=== PATIENT | female | born 1950 | race Caucasian/White ===

== ENCOUNTER 2016-05-16 12:41 | Outpatient (RCR) | payer MEDICARE, MEDICAID ==
[2016-04-20 13:20] VITALS: BP 124/57
[2016-05-04 13:23] LABS: INR 2.7 (0.8-1.4); PROTHROMBIN TIME PATIENT 28.7 SEC (12.2-14.7)
[2016-05-04 13:27] VITALS: BP 148/72
[~2016-05-16] VITALS: Ht 167.6 cm; Wt 61.2 kg
[~2016-05-16 12:41] MED LIST: AC325T PO; ATOR40TA PO; ATOR40TA70 PO; BMT1T PO; CARB10DR OU; CARI350T27 PO; CIPR-17 PO; CLIN300C3 PO; CLR7.5T PO; CRS350T PO; CYAN100053 IJ; CYCL1DRO OU; FLC1T PO; FLUO20CA25 PO; FNT75TD TD; FOLI1TAB24 PO; FURO20TA4 PO; GABA-490 PO; GBPN400C PO; HEParin (CENTRAL IV FLUSH) 500 UNIT/5 ML SYR ONE; KETO5DRO2 OU; LAMO100T PO; LAMO100T69 PO; LCT30U PO; LORA10TA7 PO; LRT10T PO; METO-354 PO; METO10TA3 PO; METO25TA2 PO; MINE3.5O OU; MINE3.5O2 OU; MTP50T PO; MULT-68 PO; NF-TYLARTH PO; NITR1PAT26 TD; NITR1PAT64 TD; NYST15CR3 TP; NYST1POW15 TOP; OMEP20TA2 PO; OXYC-12 PO; PHEN-633 PO; PHEN30TA37 PO; PHEN50TA PO; PHEN50TA4 PO; PHN100C PO; POLY119P PO; POLY17PO23 GT; POTA8TAB PO; POTA8TAB6 PO; SIME125C PO; TOPI100T2 PO; TPR100T PO; WARF1TAB6 PO; WARF2TAB6 PO; WRF1T PO; WRF2T PO; WRF5T PO; ZLP5T PO
[2016-05-16 12:45] VITALS: BP 148/72
== END 2016-07-19 | disposition home or self-care (01) ==
LOC: SDC 12:41
PROVIDERS: ATTEND Internal Medicine
DX: I87.2 Venous insufficiency (chronic) (peripheral) (principal); Z79.01 Long term (current) use of anticoagulants
CPT/HCPCS: 36415; 36591; 85610; 96523

== ENCOUNTER → 2016-08-23 | Outpatient (CLI) | payer MEDICARE, MEDICAID ==
[~2016-08-23] MED LIST changes: -HEParin (CENTRAL IV FLUSH) 500 UNIT/5 ML SYR ONE
--- NOTE | 2016-08-24 11:07 | Diagnostic Imaging Report ---
Bilateral screening mammogram. The current study was also evaluated with a Computer Aided Detection (CAD) system. INDICATION: Screening. No current complaints stated on the questionnaire. COMPARISON: None. This is a baseline study. FINDINGS: Please note that this is a technically difficult exam as the patient was sitting in a wheelchair while doing all the views. There is a cuff setter projecting over the left breast. There is an infusion port projecting over the right axillary region. No suspicious mass, architectural distortion, or suspicious cluster of calcifications identified. IMPRESSION: Difficult exam due to patient condition with no suspicious mass. ACR BI-RADS Category 2: Benign findings. Result letter will be mailed to the patient. Note: At least 10% of breast cancer is not imaged by mammography. Dictated by: Dictated on workstation # [id number]
== END ==
LOC: RAD 11:47
PROVIDERS: ATTEND Internal Medicine
DX: Z12.31 Encounter for screening mammogram for malignant neoplasm of breast (principal)
CPT/HCPCS: 77067

== ENCOUNTER → 2016-09-14 | Outpatient (CLI) | payer MEDICARE, MEDICAID ==
[2016-09-14 11:22] LABS: INR 1.4 (0.8-1.4); PROTHROMBIN TIME PATIENT 16.7 SEC (12.2-14.7)
== END ==
LOC: HH 10:57
PROVIDERS: ATTEND Internal Medicine
DX: I25.810 Atherosclerosis of coronary artery bypass graft(s) without angina pectoris (principal)
CPT/HCPCS: 85610

== ENCOUNTER → 2016-12-03 | Outpatient (CLI) | payer MEDICARE, MEDICAID ==
--- NOTE | 2016-12-03 11:28 | Diagnostic Imaging Report ---
Indication: Followup chronic kidney disease, worsening renal function test. Comparison: 11/17/2015. Discussion: Sonographic evaluation of the bilateral kidneys was performed. There is cortical atrophy again noted bilaterally. The kidneys are echogenic, consistent with chronic medical renal disease. The left kidney is atrophied measuring 7.2 cm. The right kidney measures 9.2 cm. No hydronephrosis or shadowing stone. No solid renal mass identified. Impression: 1. Changes of chronic kidney disease as discussed. No acute abnormality identified. Dictated by: Dictated on workstation # [id number]
== END ==
LOC: RAD 10:17
PROVIDERS: ATTEND Urology
DX: N28.9 Disorder of kidney and ureter, unspecified (principal)
CPT/HCPCS: 76770

== ENCOUNTER 2017-02-08 05:55 | Outpatient (CLI) | payer MEDICARE, MEDICAID ==
[~2017-02-08] VITALS: Ht 167.6 cm; Wt 61.2 kg
--- NOTE | 2017-02-08 07:15 | Pre-Op Note & Conscious Sedat ---
Pre-Operative Progress Note H&P Reviewed The H&P was reviewed, patient examined and no changes noted. Date H&P Reviewed: Feb 08, 2017 Time H&P Reviewed: 07:15 Conscious Sedation Pre-Proced ASA Class: 1 Airway Mallampati Classification: ([place] appropriate class) I. II. III, IV Lungs Heart ASA score ASA 1: a normal healthy patient ASA 2: a patient with a mild systemic disease (mid diabetes, controlled hypertension, obesity ASA 3: a patient with a severe systemic disease that limits activity (angina , COPD, prior Myocardial infarction) ASA 4: a patient with an incapacitating disease that is a constant threat to life (CHF, renal failure) ASA 5: a moribund patient not expected to survive 24 hrs. (ruptured aneurysm) ASA 6: a declared brain patient whose organs are being harvested. For emergent operations, add the letter E after the classification Grade 2 Sedation Plan: Analgesia, Amnesia, Plan communicated to team members, Discussed options with patient/fam, Discussed risks with patient/fam Note The patient is an appropriate candidate to undergo the planned procedure, sedation, and anesthesia. The patient immediately re-assessed prior to indication. ALLISON BELLA MD Feb 08, 2017 07:15
[2017-02-13] MEDS ORDERED: MELA3TAB PO (13:33)
[2017-02-13] MEDS ORDERED: CITA10TA7 PO (13:33)
[2017-02-13] MEDS ORDERED: WARF1TAB6 PO (13:33)
[2017-02-13] MEDS ORDERED: CNC1KV IJ (13:33)
[2017-02-13] MEDS ORDERED: PROM6.25 PO (13:33)
[2017-02-13] MEDS ORDERED: PHEN125O2 PO (13:33)
[2017-02-13] MEDS ORDERED: BUTA1CAP41 PO (13:33)
[2017-02-13] MEDS ORDERED: HC A30CR5 RC (13:33)
[2017-02-13] MEDS ORDERED: CLOR3.755 PO (13:33)
[2017-02-13] MEDS ORDERED: CHOL500050 PO (13:33)
[2017-02-13] MEDS ORDERED: SODI650T PO (13:33)
[2017-02-13] MEDS ORDERED: IBUP-1779 PO (13:33)
[2017-02-13] MEDS ORDERED: ONDN4T PO (13:33)
[2017-02-13] MEDS ORDERED: FEXO-14 PO (13:33)
[2017-02-13] MEDS ORDERED: ATOR40TA PO (13:33)
== END 2017-02-08 12:30 ==
LOC: PREOP 05:55
PROVIDERS: ATTEND Internal Medicine
DX: Z01.818 Encounter for other preprocedural examination (principal); K62.5 Hemorrhage of anus and rectum; D64.9 Anemia, unspecified; K43.9 Ventral hernia without obstruction or gangrene

== ENCOUNTER 2017-02-15 07:26 | Day surgery (SDC) | payer MEDICARE, MEDICAID ==
--- NOTE | 2017-02-08 07:48 | HISTORY AND PHYSICAL ---
DATE OF ADMISSION: 02/15/2017 DICTATING PHYSICIAN: Dr. Guadarrama Ms. Paniagua is a 66-year-old white female referred by Dr. Elias for diagnostic colonoscopy. She has a history of anemia, and recent intermittent bright red blood per rectum. She has a large ventral hernia and in review of her electronic medical record she underwent panendoscopy for a similar [address] Vela. He was only able to get to her descending colon secondary to a large ventral hernia, diverticular disease was noted in the sigmoid colon with no active bleeding being noted. She underwent an EGD at that time as well but did not reveal any potential bleeding sites. She denies any abdominal pain, dysphagia or heartburn. There has been no reported bowel habit change. She does have a history of constipation and is on chronic narcotic therapy. PAST MEDICAL HISTORY: Significant for: 1. 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 INR has been reportedly therapeutic. 2. She has a history of hypertension. 3. History of generalized seizure disorder that has been on good under good control on current antiseizure medication. 4. She has history of chronic kidney disease. 5. Neuropathic lower extremity pain. 6. Chronic tremor. 7. She had an echocardiogram in 2014, revealed no significant abnormalities. Ejection fraction was 60% and pulmonary artery pressure was estimated at 30 mmHg. No significant valvular abnormalities were noted. SOCIAL HISTORY: She has been a resident of a local penitentiary for some time due to her CVA and debility. PAST SURGICAL HISTORY: Noncontributory. FAMILY HISTORY: Pertinent for father diagnosed with colon cancer at unknown age, lived to be 90. PHYSICAL EXAMINATION: Reveals a pale, chronically ill-appearing white female, alert, articulate in no acute distress. VITAL SIGNS: Blood pressure 138/70 with a heart rate of 72 and regular. HEENT EXAMINATION: Unremarkable. CHEST: Clear. CV: Revealed a regular rate and rhythm without murmur, S3 or S4. She has a large ventral hernia oriented toward the right, nontender. No mass or organomegaly was noted. Bowel sounds were positive. EXTREMITIES: Reveal no cyanosis, clubbing, or edema. ASSESSMENT: The patient was set up for diagnostic colonoscopy on 02/15 for further evaluation of anemia and rectal bleeding. We will hold Coumadin 48 hours prior and obtain an INR the morning of her test. In review of her electronic medical record and evaluation today, 40 minutes of my personal care time was spent with another 10 to 15 minutes of staff time in setting up colonoscopy and prep instructions. I thank you for the referral. Sincerely, Job ID: [id number] Dictated Date: 01/22/2017 11:59:00 Director Digital Marketing Date: 01/22/2017 18:39:11/zee
[~2017-02-15] VITALS: Ht 167.6 cm; Wt 61.2 kg
[~2017-02-15 07:26] MED LIST changes: +BUTA1CAP41 PO; +CHOL500050 PO; +CITA10TA7 PO; +CLOR3.755 PO; +CNC1KV IJ; +FEXO-14 PO; +HC A30CR5 RC; +IBUP-1779 PO; +MELA3TAB PO; +ONDN4T PO; +PHEN125O2 PO; +PROM6.25 PO; +SODI650T PO
--- OUTSIDE RECORDS SUMMARY | 2017-02-15 07:30 | XMS REPORT ---
Author Author NAHOMY BETH [facility] eClinicalWorks Address Unknown Phone Unavailable Care Team Providers Care Fast Food Cashier Name Role Phone NAHOMY BETH CP Unavailable Allergies No Known Allergies Problems Problem Type Condition Code Onset Dates Condition Status Problem History of CVA with residual deficit I69.30 Active Problem Back pain M54.9 Active Problem B12 deficiency E53.8 Active Problem Unspecified arthropathy, site unspecified 716.90 Active Problem Other convulsions 780.39 Active Problem Seizure disorder G40.909 Active Problem Unspecified osteoporosis 733.00 Active Medications Medication Code System Code Instructions Start Date End Date Status Dosage Fentanyl [facility] [address]-64 75 MCG/HR Transdermal, every 72 hours January 03, 2012 1 patch to skin Results No Known Results Summary Purpose eClinicalWorks Submission
--- OUTSIDE RECORDS SUMMARY | 2017-02-15 07:30 | XMS REPORT ---
Author Author NAHOMY BETH Organization [facility] Address [address] [place] [address] Care Team Providers Care Chemistry Specialist Name Role Phone NAHOMY BETH Unavailable PROBLEMS Type Condition ICD9-CM Code [id number] Code Onset Dates Condition Status SNOMED Code Problem History of CVA with residual deficit I69.30 Active 305114925 Problem Perennial allergic rhinitis, unspecified allergic rhinitis trigger J30.89 Active 328269079 Problem Insomnia, unspecified type G47.00 Active 936142905 Problem Seizure disorder G40.909 Active 387014373 Problem Back pain M54.9 Active 932621333 Problem Personality disorder F60.9 Active 87521259 Problem Factitious disorder imposed on self, recurrent episode F68.10 Active 00145802 Problem Gastroesophageal reflux disease without esophagitis K21.9 Active 111711643 Problem Chronic kidney disease, unspecified stage N18.9 Active 482905383 Problem Anemia, unspecified type D64.9 Active 086308468 Problem History of colon polyps Z86.010 Active 996725155 ALLERGIES Unknown Allergies SOCIAL HISTORY No smoking Hx information available PLAN OF CARE VITAL SIGNS MEDICATIONS Medication Instructions Dosage Frequency Start Date End Date Duration Status Zofran ODT 4 MG Orally every 6 hrs 1 tablet on the tongue and allow to dissolve 6h May, 30 day(s) Active RESULTS No Results PROCEDURES No Known procedures IMMUNIZATIONS No Known Immunizations
--- OUTSIDE RECORDS SUMMARY | 2017-02-15 07:31 | XMS REPORT ---
Author Author NAHOMY BETH Organization [employer]ClinicalWorks Address Unknown Phone Unavailable Care Team Providers Care Billing Spec Name Role Phone NAHOMY BETH CP Unavailable Allergies No Known Allergies Problems Problem Type Condition Code Onset Dates Condition Status Problem B12 deficiency E53.8 Active Problem History of CVA with residual deficit I69.30 Active Problem Insomnia, unspecified type G47.00 Active Problem Back pain M54.9 Active Problem Seizure disorder G40.909 Active Medications Medication Code System Code Instructions Start Date End Date Status Dosage Fentanyl [facility] [address]-59 75 MCG/HR Transdermal, every 72 hours January 03, 2012 May 10, 2016 1 patch to skin Results No Known Results Summary Purpose eClinicalWorks Submission
--- OUTSIDE RECORDS SUMMARY | 2017-02-15 07:31 | XMS REPORT ---
Author Author NAHOMY BETH Organization [employer] Address Unknown Phone Unavailable Care Team Providers Care Molding Manager Name Role Phone NAHOMY BETH CP Unavailable Allergies No Known Allergies Problems Problem Type Condition Code Onset Dates Condition Status Problem History of CVA with residual deficit I69.30 Active Problem Back pain M54.9 Active Problem B12 deficiency E53.8 Active Problem Seizure disorder G40.909 Active Medications Medication Code System Code Instructions Start Date End Date Status Dosage Fentanyl [facility] [address]-03 75 MCG/HR Transdermal, every 72 hours [facility] Dr. Mcnamara to sign for Dr. Beth January 03, 2012 1 patch to skin Results No Known Results Summary Purpose eClinicalWorks Submission
--- OUTSIDE RECORDS SUMMARY | 2017-02-15 07:31 | XMS REPORT ---
Author Author NAHOMY BETH [facility] Address [address] [place] [address] Care Team Providers Care Form Building Supervisor Name Role Phone NAHOMY BETH Unavailable PROBLEMS Type Condition ICD9-CM Code GVR26-RU Code Onset Dates Condition Status SNOMED Code Problem B12 deficiency E53.8 Active 426617292 Problem History of CVA with residual deficit I69.30 Active 218703261 Problem Back pain M54.9 Active 449805852 Problem Seizure disorder G40.909 Active 518443845 ALLERGIES Unknown Allergies SOCIAL HISTORY No smoking Hx information available PLAN OF CARE VITAL SIGNS MEDICATIONS Unknown Medications RESULTS No Results PROCEDURES No Known procedures IMMUNIZATIONS No Known Immunizations
--- OUTSIDE RECORDS SUMMARY | 2017-02-15 07:31 | XMS REPORT ---
Author Author NAHOMY BETH [facility] eClinicalWorks Address Unknown Phone Unavailable Care Team Providers Care Assembler Liquid Center Name Role Phone NAHOMY BETH CP Unavailable Allergies No Known Allergies Problems Problem Type Condition Code Onset Dates Condition Status Problem B12 deficiency E53.8 Active Problem History of CVA with residual deficit I69.30 Active Problem Insomnia, unspecified type G47.00 Active Assessment Back pain M54.9 Active Problem Back pain M54.9 Active Problem Seizure disorder G40.909 Active Medications Medication Code System Code Instructions Start Date End Date Status Dosage Fentanyl [facility] [address]-97 75 MCG/HR Transdermal, every 72 hours January 03, 2012 May 10, 2016 1 patch to skin Results No Known Results Summary Purpose eClinicalWorks Submission
--- OUTSIDE RECORDS SUMMARY | 2017-02-15 07:32 | XMS REPORT ---
Author Author NAHOMY BETH Organization eClinical[employer] Address Unknown Phone Unavailable Care Team Providers Care Bottom Presser Name Role Phone NAHOMY BETH CP Unavailable Allergies No Known Allergies Problems Problem Type Condition Code Onset Dates Condition Status Problem B12 deficiency E53.8 Active Problem History of CVA with residual deficit I69.30 Active Problem Insomnia, unspecified type G47.00 Active Problem Back pain M54.9 Active Problem Seizure disorder G40.909 Active Medications Medication Code System Code Instructions Start Date End Date Status Dosage Melatonin [facility] [address]-89 3 MG Orally Once a day May 21, 2016 1 tablet at bedtime as needed with food Results No Known Results Summary Purpose eClinicalWorks Submission
--- OUTSIDE RECORDS SUMMARY | 2017-02-15 07:32 | XMS REPORT ---
Author Author NAHOMY BETH [facility] Address [address] [place] [address] Care Team Providers Care Commercial Fisher Name Role Phone NAHOMY BETH Unavailable PROBLEMS Type Condition ICD9-CM Code LCV40-PM Code Onset Dates Condition Status SNOMED Code Problem B12 deficiency E53.8 Active 810842897 Problem History of CVA with residual deficit I69.30 Active 251217745 Problem Back pain M54.9 Active 237723377 Problem Seizure disorder G40.909 Active 085443273 ALLERGIES Unknown Allergies SOCIAL HISTORY No smoking Hx information available PLAN OF CARE VITAL SIGNS MEDICATIONS Medication Instructions Dosage Frequency Start Date End Date Duration Status Fentanyl 75 MCG/HR Transdermal, every 72 hours 1 patch to skin Dec, 16 Mar, 2016 30 days Active RESULTS No Results PROCEDURES No Known procedures IMMUNIZATIONS No Known Immunizations
--- OUTSIDE RECORDS SUMMARY | 2017-02-15 07:32 | XMS REPORT ---
Author Author NAHOMY BETH [facility] eClinicalWorks Address Unknown Phone Unavailable Care Team Providers Care Water Fabricator Operator Name Role Phone NAHOMY BETH CP Unavailable Allergies No Known Allergies Problems Problem Type Condition Code Onset Dates Condition Status Problem Back pain M54.9 Active Problem Seizure disorder G40.909 Active Problem History of CVA with residual deficit I69.30 Active Problem Other convulsions 780.39 Active Assessment Back pain M54.9 Active Problem Unspecified osteoporosis 733.00 Active Problem Unspecified arthropathy, site unspecified 716.90 Active Medications Medication Code System Code Instructions Start Date End Date Status Dosage Fentanyl [facility] [address]-84 75 MCG/HR Transdermal, every 72 hours January 03, 2012 1 patch to skin Results No Known Results Summary Purpose eClinicalWorks Submission
--- OUTSIDE RECORDS SUMMARY | 2017-02-15 07:32 | XMS REPORT ---
Author Author NAHOMY BETH Organization eClinicalWorks Address Unknown Phone Unavailable Care Team Providers Care Yarding And Folding Machine Operator Name Role Phone NAHOMY BETH CP [...] Instructions Start Date End Date Status Dosage Neurontin [facility] [address]-04 400 MG Orally at bed time December 10, 2013 1 capsule Results No Known Results Summary Purpose eClinicalWorks Submission
--- OUTSIDE RECORDS SUMMARY | 2017-02-15 07:32 | XMS REPORT ---
Author Author NAHOMY BETH Organization [facility] Address [address] [place] [address] Care Team Providers Care English Horn Player Name Role Phone NAHOMY BETH Unavailable PROBLEMS Type Condition ICD9-CM Code FHR70-SK Code Onset Dates Condition Status SNOMED Code Problem History of CVA with residual deficit I69.30 Active 100234254 Problem Perennial allergic rhinitis, unspecified allergic rhinitis trigger J30.89 Active 637963812 Problem Insomnia, unspecified type G47.00 Active 934342490 Problem Seizure disorder G40.909 Active 353316631 Problem Back pain M54.9 Active 430086320 Problem Personality disorder F60.9 Active 67594050 Problem Factitious disorder imposed on self, recurrent episode F68.10 Active 22827456 Problem Gastroesophageal reflux disease without esophagitis K21.9 Active 334415913 Problem Chronic kidney disease, unspecified stage N18.9 Active 354534822 Problem Anemia, unspecified type D64.9 Active 087514450 Problem History of colon polyps Z86.010 Active 769249587 ALLERGIES Unknown Allergies SOCIAL HISTORY No smoking Hx information available PLAN OF CARE VITAL SIGNS MEDICATIONS Medication Instructions Dosage Frequency Start Date End Date Duration Status warfarin 1 mg 1/2 tablet Mon- Wed-Fri Once a day 1 tablet 24h May, Active RESULTS No Results PROCEDURES No Known procedures IMMUNIZATIONS No Known Immunizations
--- OUTSIDE RECORDS SUMMARY | 2017-02-15 07:33 | XMS REPORT ---
Author Author NAHOMY BETH [facility] eClinicalWorks Address Unknown Phone Unavailable Care Team Providers Care Economics Lecturer Name Role Phone NAHOMY BETH CP Unavailable Allergies No Known Allergies Problems Problem Type Condition Code Onset Dates Condition Status Problem Routine general medical examination at health care facility V70.0 Active Problem Unspecified backache 724.5 Active Problem Candidiasis of vulva and vagina 112.1 Active Problem Other hammer toe (acquired) 735.4 Active Problem Unspecified osteoporosis 733.00 Active Problem Candidiasis of skin and nails 112.3 Active Problem Ulcer of lower limb, unspecified 707.10 Active Problem Closed fracture of one or more phalanges of foot 826.0 Active Problem Unspecified arthropathy, site unspecified 716.90 Active Problem Acute upper respiratory infections of unspecified site 465.9 Active Assessment Vomiting R11.10 Active Problem Umbilical hernia without mention of obstruction or gangrene 553.1 Active Problem Unspecified vaginitis and vulvovaginitis 616.10 Active Problem Other late effects of cerebrovascular disease 438.89 Active Problem Other convulsions 780.39 Active Problem Dermatophytosis of nail 110.1 Active Problem Abdominal pain, unspecified site 789.00 Active Problem Head injury, unspecified 959.01 Active Medications No Known Medications Procedures Procedure Coding System Code Date DOMICIL/R-HOME VISIT EST [facility] CPT-4 63697 Apr 20, 2015 Results No Known Results Summary Purpose eClinicalWorks Submission
--- OUTSIDE RECORDS SUMMARY | 2017-02-15 07:34 | XMS REPORT ---
Author Author NAHOMY BETH [facility] Address [address] [place] [address] Care Team Providers Care Personnel Monitor Name Role Phone NAHOMY BETH Unavailable PROBLEMS Type Condition ICD9-CM Code SOX99-MP Code Onset Dates Condition Status SNOMED Code Problem Insomnia, unspecified type G47.00 Active 036067751 Problem B12 deficiency E53.8 Active 989261678 Problem Seizure disorder G40.909 Active 340451370 Problem History of CVA with residual deficit I69.30 Active 928360139 Problem Back pain M54.9 Active 578592793 ALLERGIES Unknown Allergies SOCIAL HISTORY No smoking Hx information available PLAN OF CARE VITAL SIGNS MEDICATIONS Medication Instructions Dosage Frequency Start Date End Date Duration Status Fentanyl 75 MCG/HR Transdermal, every 72 hours 1 patch to skin Dec, Apr, 30 days Active RESULTS No Results PROCEDURES No Known procedures IMMUNIZATIONS No Known Immunizations
--- OUTSIDE RECORDS SUMMARY | 2017-02-15 07:34 | XMS REPORT ---
Author Author NAHOMY BETH Organization eClinicalWorks Address Unknown Phone Unavailable Care Team Providers Care Shop Laborer Name Role Phone NAHOMY BETH CP Unavailable [...] respiratory infections of unspecified site 465.9 Active Problem Umbilical hernia without mention of obstruction or gangrene 553.1 Active Problem Unspecified vaginitis and vulvovaginitis 616.10 Active Problem Other late effects of cerebrovascular disease 438.89 Active Problem Other convulsions 780.39 Active Problem Dermatophytosis of nail 110.1 Active Problem Abdominal pain, unspecified site 789.00 Active Problem Head injury, unspecified 959.01 Active Medications Medication Code System Code Instructions Start Date End Date Status Dosage Fentanyl [facility] [address]-02 75 MCG/HR Transdermal, every 72 hours Lyndon to sign for Jada January 03, 2012 1 patch to skin Results No Known Results Summary Purpose eClinicalWorks Submission
--- OUTSIDE RECORDS SUMMARY | 2017-02-15 07:34 | XMS REPORT ---
Author Author NAHOMY BETH Organization eClinicalWorks Address Unknown Phone Unavailable Care Team Providers Care Balance Wheel Screw Hole Tapper Name Role Phone NAHOMY BETH CP Unavailable Allergies No Known Allergies Problems Problem Type Condition ICD-9 Code Onset Dates Condition Status Problem Routine [...] Start Date End Date Status Dosage Fentanyl [facility] [address]-94 75 MCG/HR Transdermal, every 72 hours January 03, 2012 1 patch to skin Results No Known Results Summary Purpose eClinicalWorks Submission
--- OUTSIDE RECORDS SUMMARY | 2017-02-15 07:34 | XMS REPORT ---
Author Author NAHOMY BETH Organization eClinicalWorks Address Unknown Phone Unavailable Care Team Providers Care Storage Battery Tester Name Role Phone NAHOMY BETH CP Unavailable [...] unspecified 959.01 Active Medications No Known Medications Results No Known Results Summary Purpose eClinicalWorks Submission
--- OUTSIDE RECORDS SUMMARY | 2017-02-15 07:35 | XMS REPORT ---
Author Author NAHOMY BETH Organization eClinicalWorks Address Unknown Phone Unavailable Care Team Providers Care Electromechanical Engineer Name Role Phone NAHOMY BETH CP Unavailable [...] infections of unspecified site 465.9 Active Assessment UTI (urinary tract infection) 599.0 Active Problem Umbilical hernia without mention of [...] Instructions Start Date End Date Status Dosage [facility] [address]-63 500 MG Orally Twice a day Mar 03, 2015 Mar 08, 2015 1 tablet Results No Known Results Summary Purpose eClinicalWorks Submission
--- OUTSIDE RECORDS SUMMARY | 2017-02-15 07:35 | XMS REPORT ---
Author Author NAHOMY BETH Organization eClinicalWorks Address Unknown Phone Unavailable Care Team Providers Care Specimen Processor Name Role Phone NAHOMY BETH CP Unavailable Allergies No Known Allergies Problems Problem Type Condition Code Onset Dates Condition Status Problem Back pain M54.9 Active Problem Seizure disorder G40.909 Active Problem History of CVA with residual deficit I69.30 Active Problem Other convulsions 780.39 Active Problem Unspecified osteoporosis 733.00 Active Problem Unspecified arthropathy, site unspecified 716.90 Active Medications No Known Medications Results No Known Results Summary Purpose eClinicalWorks Submission
--- OUTSIDE RECORDS SUMMARY | 2017-02-15 07:35 | XMS REPORT ---
Author Author NAHOMY BETH Organization eClinicalWorks Address Unknown Phone Unavailable Care Team Providers Care Medical Lab Director Name Role Phone NAHOMY BETH CP Unavailable Allergies No Known Allergies Problems Problem Type Condition Code Onset Dates Condition Status Problem Back pain M54.9 Active Problem Seizure disorder G40.909 Active Problem History of CVA with residual deficit I69.30 Active Problem Other convulsions 780.39 Active Assessment History of CVA with residual deficit I69.30 Active Problem Unspecified osteoporosis 733.00 Active Problem Unspecified arthropathy, site unspecified 716.90 Active Medications Medication Code System Code Instructions Start Date End Date Status Dosage MiraLax [facility] 06423486554 17 DISSOLVE 17 GRAMS IN 8 OUNCES OF LIQUID AND DRINK ONCE DAILY Results No Known Results Summary Purpose eClinicalWorks Submission
--- OUTSIDE RECORDS SUMMARY | 2017-02-15 07:36 | XMS REPORT ---
Author Author NAHOMY BETH [facility] eClinicalWorks Address Unknown Phone Unavailable Care Team Providers Care Metal Lather Name Role Phone NAHOMY BETH CP Unavailable Allergies No Known Allergies Problems Problem Type Condition Code Onset Dates Condition Status Problem History of CVA with residual deficit I69.30 Active Problem Back pain M54.9 Active Problem B12 deficiency E53.8 Active Problem Seizure disorder G40.909 Active Medications Medication Code System Code Instructions Start Date End Date Status Dosage Clorazepate Dipotassium [facility] 21444171582 3.75 MG Orally Twice a day TAKE 2 TABLETS Results No Known Results Summary Purpose eClinicalWorks Submission
--- OUTSIDE RECORDS SUMMARY | 2017-02-15 07:36 | XMS REPORT ---
Author Author NAHOMY BETH Organization [facility] Address [address] [place] [address] Care Team Providers Care Ibm Bpm Architect Name Role Phone NAHOMY BETH Unavailable PROBLEMS Type Condition ICD9-CM Code [id number] Code Onset Dates Condition Status SNOMED Code Problem History of CVA with residual deficit I69.30 Active 294841839 Problem Perennial allergic rhinitis, unspecified allergic rhinitis trigger J30.89 Active 557888896 Problem Insomnia, unspecified type G47.00 Active 784575268 Problem Seizure disorder G40.909 Active 593485376 Problem Back pain M54.9 Active 785304268 Problem Personality disorder F60.9 Active 76442378 Problem Factitious disorder imposed on self, recurrent episode F68.10 Active 21102148 Problem Gastroesophageal reflux disease without esophagitis K21.9 Active 511591052 Problem Chronic kidney disease, unspecified stage N18.9 Active 694282836 Problem Anemia, unspecified type D64.9 Active 437053287 Problem History of colon polyps Z86.010 Active 444111150 ALLERGIES Unknown Allergies SOCIAL HISTORY No smoking Hx information available PLAN OF CARE VITAL SIGNS MEDICATIONS Medication Instructions Dosage Frequency Start Date End Date Duration Status Fioricet 50-300-40 MG Orally every 6 hrs 1 capsule as needed 6h May, Jun, 30 days Active Sodium Bicarbonate 650 MG Orally Once a day 1 tablet 24h May, 30 day(s) Active RESULTS No Results PROCEDURES No Known procedures IMMUNIZATIONS No Known Immunizations
--- OUTSIDE RECORDS SUMMARY | 2017-02-15 07:36 | XMS REPORT ---
Author Author NAHOMY BETH [facility] eClinical[employer] Address Unknown Phone Unavailable Care Team Providers Care Senior Counsel Commercial Name Role Phone NAHOMY BETH CP Unavailable [...] infections of unspecified site 465.9 Active Assessment Medication monitoring encounter Z51.81 Active Problem Umbilical hernia without mention of [...] Instructions Start Date End Date Status Dosage warfarin NDC 0 1 mg oral Once a day Jun 08, 2014 1 tablet Results No Known Results Summary Purpose eClinicalWorks Submission
--- OUTSIDE RECORDS SUMMARY | 2017-02-15 07:36 | XMS REPORT ---
Author Author NAHOMY BETH Organization [employer] Address Unknown Phone Unavailable Care Team Providers Care Aluminum Molding Machine Operator Name Role Phone NAHOMY BETH [...] Start Date End Date Status Dosage Fent[place] [facility] [place] [address]-45 75 MCG/HR Transdermal, every 72 hours January 03, 2012 1 patch to skin Results No Known Results Summary Purpose eClinicalWorks Submission
--- OUTSIDE RECORDS SUMMARY | 2017-02-15 07:36 | XMS REPORT ---
Author Author NAHOMY BETH [facility] Address [address] [place] [address] Care Team Providers Care Meter Installer And Remover Name Role Phone NAHOMY BETH Unavailable PROBLEMS Type Condition ICD9-CM Code [id number] Code Onset Dates Condition Status SNOMED Code Problem B12 deficiency E53.8 Active 239782458 Problem History of CVA with residual deficit I69.30 Active 792619799 Problem Back pain M54.9 Active 505317422 Problem Seizure disorder G40.909 Active 230154306 ALLERGIES Unknown Allergies SOCIAL HISTORY No smoking Hx information available PLAN OF CARE VITAL SIGNS MEDICATIONS Medication Instructions Dosage Frequency Start Date End Date Duration Status Clorazepate Dipotassium 3.75 MG Orally Twice a day TAKE 2 TABLETS 12h 28 days Active RESULTS No Results PROCEDURES No Known procedures IMMUNIZATIONS No Known Immunizations
--- OUTSIDE RECORDS SUMMARY | 2017-02-15 07:36 | XMS REPORT ---
Author Author NAHOMY BETH Organization [employer] Address Unknown Phone Unavailable Care Team Providers Care Coater Operator Name Role Phone NAHOMY BETH CP [...] Start Date End Date Status Dosage Fentanyl [facility] [address]-81 75 MCG/HR Transdermal, every 72 hours January 03, 2012 1 patch to skin Results No Known Results Summary Purpose eClinicalWorks Submission
--- OUTSIDE RECORDS SUMMARY | 2017-02-15 07:36 | XMS REPORT ---
Author Author NAHOMY BETH [facility] Address [address] [place] [address] Care Team Providers Care Library Page Name Role Phone NAHOMY BETH Unavailable PROBLEMS Type Condition ICD9-CM Code [id number]-[id number] Code Onset Dates Condition Status SNOMED Code Problem History of CVA with residual deficit I69.30 Active 133044954 Problem Perennial allergic rhinitis, unspecified allergic rhinitis trigger J30.89 Active 346394765 Problem Insomnia, unspecified type G47.00 Active 132748335 Problem Seizure disorder G40.909 Active 351438098 Problem Back pain M54.9 Active 925647653 Problem Personality disorder F60.9 Active 43701099 Problem Factitious disorder imposed on self, recurrent episode F68.10 Active 26556492 Problem Gastroesophageal reflux disease without esophagitis K21.9 Active 857495164 Problem Chronic kidney disease, unspecified stage N18.9 Active 122195082 Problem Anemia, unspecified type D64.9 Active 050664594 Problem History of colon polyps Z86.010 Active 985248174 ALLERGIES Unknown Allergies SOCIAL HISTORY No smoking Hx information available PLAN OF CARE VITAL SIGNS MEDICATIONS Unknown Medications RESULTS No Results PROCEDURES No Known procedures IMMUNIZATIONS No Known Immunizations
--- OUTSIDE RECORDS SUMMARY | 2017-02-15 07:36 | XMS REPORT ---
Author Author NAHOMY BETH Organization [employer] Address Unknown Phone Unavailable Care Team Providers Care Project Control Officer Name Role Phone NAHOMY BETH CP Unavailable Allergies No Known Allergies Problems Problem Type Condition Code Onset Dates Condition Status Problem History of CVA with residual deficit I69.30 Active Problem Back pain M54.9 Active Problem B12 deficiency E53.8 Active Problem Seizure disorder G40.909 Active Medications Medication Code System Code Instructions Start Date End Date Status Dosage Fentanyl [facility] [place] [address]-16 75 MCG/HR Transdermal, every 72 hours [facility] Dr. Mcnamara to sign for Dr. Beth January 03, 2012 1 patch to skin Results No Known Results Summary Purpose eClinicalWorks Submission
--- OUTSIDE RECORDS SUMMARY | 2017-02-15 07:36 | XMS REPORT ---
Author Author NAHOMY BETH Organization [facility] Address [address] [place] [address] Care Team Providers Care Deicer Repairer Pneumatic Name Role Phone NAHOMY BETH Unavailable PROBLEMS Type Condition ICD9-CM Code ZGE87-WK Code Onset Dates Condition Status SNOMED Code Problem History of CVA with residual deficit I69.30 Active 132437924 Problem Perennial allergic rhinitis, unspecified allergic rhinitis trigger J30.89 Active 908070488 Problem Insomnia, unspecified type G47.00 Active 571524814 Problem Seizure disorder G40.909 Active 910149281 Problem Back pain M54.9 Active 829141975 Problem Personality disorder F60.9 Active 20128177 Problem Factitious disorder imposed on self, recurrent episode F68.10 Active 09170654 Problem Gastroesophageal reflux disease without esophagitis K21.9 Active 185769464 Problem Chronic kidney disease, unspecified stage N18.9 Active 464369029 Problem Anemia, unspecified type D64.9 Active 520632032 Problem History of colon polyps Z86.010 Active 155305872 ALLERGIES Unknown Allergies SOCIAL HISTORY No smoking Hx information available PLAN OF CARE VITAL SIGNS MEDICATIONS Medication Instructions Dosage Frequency Start Date End Date Duration Status Cymbalta 30 MG Orally Once a day 1 capsule 24h May, 30 day(s) Active RESULTS No Results PROCEDURES No Known procedures IMMUNIZATIONS No Known Immunizations
--- OUTSIDE RECORDS SUMMARY | 2017-02-15 07:36 | XMS REPORT ---
Author Author NAHOMY BETH Organization [employer] Address Unknown Phone Unavailable Care Team Providers Care Yarn Polishing Machine Operator Name Role Phone NAHOMY BETH [...]
--- OUTSIDE RECORDS SUMMARY | 2017-02-15 07:36 | XMS REPORT ---
Author Author NAHOMY BETH Organization [employer] Address Unknown Phone Unavailable Care Team Providers Care Apartment Assistant Manager Name Role Phone NAHOMY BETH CP [...] Start Date End Date Status Dosage Fentanyl [facility] [address]-60 75 MCG/HR Transdermal, every 72 hours January 03, 2012 1 patch to skin Clorazepate Dipotassium [facility] [id number] 3.75 Orally 2 times a day 2 tablet s Results No Known Results Summary Purpose eClinicalWorks Submission
[2017-02-15 07:40] VITALS: BP 187/72
--- NOTE | 2017-02-15 07:40 | Pre-Op Note & Conscious Sedat ---
Pre-Operative Progress Note H&P Reviewed The H&P was reviewed, patient examined and no changes noted. Date H&P Reviewed: Feb 15, 2017 Time H&P Reviewed: 07:40 Conscious Sedation Pre-Proced ASA Class: 2 Airway Mallampati Classification: (kiana appropriate class) I. II. III, IV Lungs Heart ASA score ASA 1: a normal healthy patient ASA 2: a patient with a mild systemic disease (mid diabetes, controlled hypertension, obesity ASA 3: a patient with a severe systemic disease that limits activity (angina , COPD, prior Myocardial infarction) ASA 4: a patient with an incapacitating disease that is a constant threat to life (CHF, renal failure) ASA 5: a moribund patient not expected to survive 24 hrs. (ruptured aneurysm) ASA 6: a declared brain patient whose organs are being harvested. For emergent operations, add the letter E after the classification Grade 3 Sedation Plan: Analgesia, Amnesia, Plan communicated to team members, Discussed options with patient/fam, Discussed risks with patient/fam Note The patient is an appropriate candidate to undergo the planned procedure, sedation, and anesthesia. The patient immediately re-assessed prior to indication. ALLISON BELLA MD Feb 15, 2017 07:40
[2017-02-15] MEDS ORDERED: 1/2 NS IV SOLUTION 1,000 ML IV ONE (07:42)
--- OUTSIDE RECORDS SUMMARY | 2017-02-15 07:42 | XMS REPORT | Continuity of Care Document ---
Author Author [facility] Address Unknown Phone Unavailable Allergies Active Description Code Type Severity Reaction Onset Reported/Identified Relationship to Patient Clinical Status Yes acetaminophen [id number] Drug Allergy Unknown N/A 03/18/2006 Yes ALL FISH ALL FISH Unknown N/A 03/18/2006 Yes amitriptyline [id number] Drug Allergy Unknown N/A 03/18/2006 Yes ANITHISTAMINES ANITHISTAMINES Unknown N/A 03/18/2006 Yes aspirin [id number] Drug Allergy Unknown N/A 03/18/2006 Yes Caramiphen [id number] Drug Allergy Unknown N/A 03/18/2006 Yes carbamazepine [id number] Drug Allergy Unknown N/A 03/18/2006 Yes clarithromycin [id number] Drug Allergy Unknown N/A 03/18/2006 Yes codeine [id number] Drug Allergy Unknown N/A 03/18/2006 Yes COFFEE COFFEE Unknown N/A 03/18/2006 Yes diazepam [id number] Drug Allergy Unknown N/A 03/18/2006 Yes diphenhydramine [id number] Drug Allergy Unknown N/A 03/18/2006 Yes doxycycline [id number] Drug Allergy Unknown N/A 03/18/2006 Yes egg [id number] Drug Allergy Unknown N/A 03/18/2006 Yes fish oil [id number] Drug Allergy Unknown N/A 03/18/2006 Yes flavoxate [id number] Drug Allergy Unknown N/A 03/18/2006 Yes hydrocodone [id number] Drug Allergy Unknown N/A 03/18/2006 Yes hydroxyzine [id number] Drug Allergy Unknown N/A 03/18/2006 Yes hyoscyamine [id number] Drug Allergy Unknown N/A 03/18/2006 Yes imipramine [id number] Drug Allergy Unknown N/A 03/18/2006 Yes levofloxacin [id number] Drug Allergy Unknown N/A 03/18/2006 Yes Liver Extract [id number] Drug Allergy Unknown N/A 03/18/2006 Yes lorazepam [id number] Drug Allergy Unknown N/A 03/18/2006 Yes milk [id number] Drug Allergy Unknown N/A 03/18/2006 Yes nitrofurantoin [id number] Drug Allergy Unknown N/A 03/18/2006 Yes oxybutynin [id number] Drug Allergy Unknown N/A 03/18/2006 Yes Penicillins [id number] Drug Allergy Unknown N/A 03/18/2006 Yes pentazocine [id number] Drug Allergy Unknown N/A 03/18/2006 Yes phenazopyridine [id number] Drug Allergy Unknown N/A 03/18/2006 Yes phenylpropanolamine [id number] Drug Allergy Unknown N/A 03/18/2006 Yes procaine [id number] Drug Allergy Unknown N/A 03/18/2006 Yes promethazine [id number] Drug Allergy Unknown N/A 03/18/2006 Yes propoxyphene [id number] Drug Allergy Unknown N/A 03/18/2006 Yes pseudoephedrine [id number] Drug Allergy Unknown N/A 03/18/2006 Yes SPINACH SPINACH Unknown N/A 03/18/2006 Yes Sulfa (Sulfonamide Antibiotics) [id number] Drug Allergy Unknown N/A 03/18/2006 Yes tetracycline [id number] Drug Allergy Unknown N/A 03/18/2006 Yes tramadol [id number] Drug Allergy Unknown N/A 03/18/2006 Yes zinc acetate [id number] Drug Allergy Unknown N/A 03/18/2006 Yes aspirin Drug Allergy N/A N/A 11/28/2009 Yes codeine Drug Allergy N/A N/A 11/28/2009 Yes Penicillins Drug Allergy N/A N/A 11/28/2009 Yes sulfasalazine Drug Allergy N/A N/A 11/28/2009 Yes Tegretol Drug Allergy N/A N/A 11/28/2009 Yes aspirin Drug Allergy 11/28/2009 Yes codeine Drug Allergy 11/28/2009 Yes Penicillins Drug Allergy 11/28/2009 Yes sulfasalazine Drug Allergy 11/28/2009 Yes Tegretol Drug Allergy 11/28/2009 Yes Ativan Drug Allergy N/A N/A 06/02/2010 Yes Biaxin Drug Allergy N/A N/A 06/02/2010 Yes Darvon Drug Allergy N/A N/A 06/02/2010 Yes Ditropan Drug Allergy N/A N/A 06/02/2010 Yes Elavil Drug Allergy N/A N/A 06/02/2010 Yes erythromycin Drug Allergy N/A N/A 06/02/2010 Yes imipramine Drug Allergy N/A N/A 06/02/2010 Yes Levsin Drug Allergy N/A N/A 06/02/2010 Yes Macrobid Drug Allergy N/A N/A 06/02/2010 Yes Novocain Drug Allergy N/A N/A 06/02/2010 Yes Organidin NR Drug Allergy N/A N/A 06/02/2010 Yes Phenergan Drug Allergy N/A N/A 06/02/2010 Yes PhosLo Drug Allergy N/A N/A 06/02/2010 Yes Pyridium Drug Allergy N/A N/A 06/02/2010 Yes Talwin NX Drug Allergy N/A N/A 06/02/2010 Yes tetracycline Drug Allergy N/A N/A 06/02/2010 Yes Tofranil Drug Allergy N/A N/A 06/02/2010 Yes traMADOL Drug Allergy N/A N/A 06/02/2010 Yes Urispas Drug Allergy N/A N/A 06/02/2010 Yes Valium Drug Allergy N/A N/A 06/02/2010 Yes vancomycin Drug Allergy N/A N/A 06/02/2010 Yes Vibramycin Drug Allergy N/A N/A 06/02/2010 Yes Vicodin Drug Allergy N/A N/A 06/02/2010 Yes Vistaril Drug Allergy N/A N/A 06/02/2010 Yes antihistamine Drug Allergy 06/02/2010 Yes Ativan Drug Allergy 06/02/2010 Yes Biaxin Drug Allergy 06/02/2010 Yes Darvon Drug Allergy 06/02/2010 Yes Ditropan Drug Allergy 06/02/2010 Yes Elavil Drug Allergy 06/02/2010 Yes erythromycin Drug Allergy 06/02/2010 Yes imipramine Drug Allergy 06/02/2010 Yes Levsin Drug Allergy 06/02/2010 Yes Macrobid Drug Allergy 06/02/2010 Yes Novocain Drug Allergy 06/02/2010 Yes Organidin NR Drug Allergy 06/02/2010 Yes Phenergan Drug Allergy 06/02/2010 Yes PhosLo Drug Allergy 06/02/2010 Yes Pyridium Drug Allergy 06/02/2010 Yes Talwin NX Drug Allergy 06/02/2010 Yes tetracycline Drug Allergy 06/02/2010 Yes Tofranil Drug Allergy 06/02/2010 Yes traMADOL Drug Allergy 06/02/2010 Yes Urispas Drug Allergy 06/02/2010 Yes Valium Drug Allergy 06/02/2010 Yes vancomycin Drug Allergy 06/02/2010 Yes Vibramycin Drug Allergy 06/02/2010 Yes Vicodin Drug Allergy 06/02/2010 Yes Vistaril Drug Allergy 06/02/2010 Yes Xylocaine HCl Drug Allergy 06/02/2010 Yes metoclopramide Drug Allergy N/A N/A 03/02/2011 Yes metoclopramide Drug Allergy 03/02/2011 Medications Problems Date Dx Coded Attending Type Code Diagnosis Diagnosed By 11/18/2009 NAHOMY BETH MD 266.2 OTHER B-COMPLEX DEFICIENCIES 11/18/2009 NAHOMY BETH MD 356.9 NEUROPATHY 11/18/2009 NAHOMY BETH MD 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 11/18/2009 NAHOMY BETH MD 493.90 Asthma Unspecified 11/18/2009 NAHOMY BETH MD 530.81 GERD 11/18/2009 NAHOMY BETH MD 266.2 OTHER B-COMPLEX DEFICIENCIES 11/18/2009 NAHOMY BETH MD 356.9 NEUROPATHY 11/18/2009 NAHOMY BETH MD 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 11/18/2009 NAHOMY BETH MD 493.90 Asthma Unspecified 11/18/2009 NAHOMY BETH MD 530.81 GERD 11/18/2009 266.2 OTHER B-COMPLEX DEFICIENCIES 11/18/2009 356.9 NEUROPATHY 11/18/2009 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 11/18/2009 493.90 Asthma Unspecified 11/18/2009 530.81 GERD 11/18/2009 266.2 OTHER B-COMPLEX DEFICIENCIES 11/18/2009 356.9 NEUROPATHY 11/18/2009 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 11/18/2009 493.90 Asthma Unspecified 11/18/2009 530.81 GERD 11/18/2009 266.2 OTHER B-COMPLEX DEFICIENCIES 11/18/2009 356.9 NEUROPATHY 11/18/2009 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 11/18/2009 493.90 Asthma Unspecified 11/18/2009 530.81 GERD 11/18/2009 266.2 OTHER B-COMPLEX DEFICIENCIES 11/18/2009 356.9 NEUROPATHY 11/18/2009 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 11/18/2009 493.90 Asthma Unspecified 11/18/2009 530.81 GERD 11/18/2009 266.2 OTHER B-COMPLEX DEFICIENCIES 11/18/2009 356.9 NEUROPATHY 11/18/2009 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 11/18/2009 493.90 Asthma Unspecified 11/18/2009 530.81 GERD 11/18/2009 NAHOMY BETH MD 266.2 OTHER B-COMPLEX DEFICIENCIES 11/18/2009 NAHOMY BETH MD 356.9 NEUROPATHY 11/18/2009 NAHOMY BETH MD 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 11/18/2009 NAHOMY BETH MD 493.90 Asthma Unspecified 11/18/2009 NAHOMY BETH MD 530.81 GERD 11/18/2009 NAHOMY BETH MD 266.2 OTHER B-COMPLEX DEFICIENCIES 11/18/2009 NAHOMY BETH MD 356.9 NEUROPATHY 11/18/2009 NAHOMY BETH MD 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 11/18/2009 NAHOMY BETH MD 493.90 Asthma Unspecified 11/18/2009 NAHOMY BETH MD 530.81 GERD 11/18/2009 HARO DO NAIN K 266.2 OTHER B-COMPLEX DEFICIENCIES 11/18/2009 HARO DO NAIN K 356.9 NEUROPATHY 11/18/2009 HARO DO NAIN K 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 11/18/2009 HARO DO, NAIN K 493.90 Asthma Unspecified 11/18/2009 HARO DO, NAIN K 530.81 GERD 11/18/2009 NAHOMY BETH MD 266.2 OTHER B-COMPLEX DEFICIENCIES 11/18/2009 NAHOMY BETH MD 356.9 NEUROPATHY 11/18/2009 NAHOMY BETH MD 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 11/18/2009 NAHOMY BETH MD 493.90 Asthma Unspecified 11/18/2009 NAHOMY BETH MD 530.81 GERD 11/18/2009 NAHOMY BETH MD 266.2 OTHER B-COMPLEX DEFICIENCIES 11/18/2009 NAHOMY BETH MD 356.9 NEUROPATHY 11/18/2009 NAHOMY BETH MD 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 11/18/2009 NAHOMY BETH MD 493.90 Asthma Unspecified 11/18/2009 NAHOMY BETH MD 530.81 GERD 11/18/2009 HARO DO, NAIN K 266.2 OTHER B-COMPLEX DEFICIENCIES 11/18/2009 HARO DO, NAIN K 356.9 NEUROPATHY 11/18/2009 HARO DO, NAIN K 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 11/18/2009 HARO DO, NAIN K 493.90 Asthma Unspecified 11/18/2009 HARO DO, NAIN K 530.81 GERD 11/18/2009 HARO DO, NAIN K 266.2 OTHER B-COMPLEX DEFICIENCIES 11/18/2009 HARO DO, NAIN K 356.9 NEUROPATHY 11/18/2009 HARO DO, NAIN K 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 11/18/2009 HARO DO, NAIN K 493.90 Asthma Unspecified 11/18/2009 HARO DO, NAIN K 530.81 GERD 11/18/2009 NAHOMY BETH MD 266.2 OTHER B-COMPLEX DEFICIENCIES 11/18/2009 NAHOMY BETH MD 356.9 NEUROPATHY 11/18/2009 NAHOMY BETH MD 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 11/18/2009 NAHOMY BETH MD 493.90 Asthma Unspecified 11/18/2009 NAHOMY BETH MD 530.81 GERD 11/18/2009 SATYA DPM, CASIE 266.2 OTHER B-COMPLEX DEFICIENCIES 11/18/2009 SATYA DPM, CASIE 356.9 NEUROPATHY 11/18/2009 SATYA DPM, CASIE 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 11/18/2009 SATYA DPM, CASIE 493.90 Asthma Unspecified 11/18/2009 SATYA DPM, CASIE 530.81 GERD 11/18/2009 SATYA DPM, CASIE 266.2 OTHER B-COMPLEX DEFICIENCIES 11/18/2009 SATYA DPM, CASIE 356.9 NEUROPATHY 11/18/2009 SATYA DPM, CASIE 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 11/18/2009 STAYA DPM, CASIE 493.90 Asthma Unspecified 11/18/2009 SATYA DPM, CASIE 530.81 GERD 11/18/2009 NAHOMY BETH MD 266.2 OTHER B-COMPLEX DEFICIENCIES 11/18/2009 NAHOMY BETH MD 356.9 NEUROPATHY 11/18/2009 NAHOMY BETH MD 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 11/18/2009 NAHOMY BETH MD 493.90 Asthma Unspecified 11/18/2009 NAHOMY BETH MD 530.81 GERD 11/18/2009 SATYA DPM, CASIE 266.2 OTHER B-COMPLEX DEFICIENCIES 11/18/2009 SATYA DPM, CASIE 356.9 NEUROPATHY 11/18/2009 SATYA DPM, CASIE 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 11/18/2009 SATYA DPM, CASIE 493.90 Asthma Unspecified 11/18/2009 SATYA DPM, CASIE 530.81 GERD 11/18/2009 NAHOMY BETH MD 266.2 OTHER B-COMPLEX DEFICIENCIES 11/18/2009 NAHOMY BETH MD 356.9 NEUROPATHY 11/18/2009 NAHOMY BETH MD 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 11/18/2009 NAHOMY BETH MD 493.90 Asthma Unspecified 11/18/2009 NAHOMY BETH MD 530.81 GERD 11/28/2009 NAHOMY BETH MD 719.47 Pain In Joint Involving Ankle And Foot 11/28/2009 NAHOMY BETH MD 845.10 Sprains And Strains Of Foot, Unspecified Site 11/28/2009 NAHOMY BETH MD 719.47 Pain In Joint Involving Ankle And Foot 11/28/2009 NAHOMY BETH MD 845.10 Sprains And Strains Of Foot, Unspecified Site 11/28/2009 719.47 Pain In Joint Involving Ankle And Foot 11/28/2009 845.10 Sprains And Strains Of Foot, Unspecified Site 11/28/2009 719.47 Pain In Joint Involving Ankle And Foot 11/28/2009 845.10 Sprains And Strains Of Foot, Unspecified Site 11/28/2009 719.47 Pain In Joint Involving Ankle And Foot 11/28/2009 845.10 Sprains And Strains Of Foot, Unspecified Site 11/28/2009 719.47 Pain In Joint Involving Ankle And Foot 11/28/2009 845.10 Sprains And Strains Of Foot, Unspecified Site 11/28/2009 719.47 Pain In Joint Involving Ankle And Foot 11/28/2009 845.10 Sprains And Strains Of Foot, Unspecified Site 11/28/2009 NAHOMY BETH MD.47 Pain In Joint Involving Ankle And Foot 11/28/2009 NAHOMY BETH MD 845.10 Sprains And Strains Of Foot, Unspecified Site 11/28/2009 NAHOMY BETH MD.47 Pain In Joint Involving Ankle And Foot 11/28/2009 NAHOMY BETH MD 845.10 Sprains And Strains Of Foot, Unspecified Site 11/28/2009 NAIN HARO DO 719.47 Pain In Joint Involving Ankle And Foot 11/28/2009 NAIN HARO DO 845.10 Sprains And Strains Of Foot, Unspecified Site 11/28/2009 NAHOMY BETH MD.47 Pain In Joint Involving Ankle And Foot 11/28/2009 NAHOMY BETH MD 845.10 Sprains And Strains Of Foot, Unspecified Site 11/28/2009 NAHOMY BETH MD.47 Pain In Joint Involving Ankle And Foot 11/28/2009 NAHOMY BETH MD 845.10 Sprains And Strains Of Foot, Unspecified Site 11/28/2009 HARO NAIN DOWELL 719.47 Pain In Joint Involving Ankle And Foot 11/28/2009 NAIN HARO DO K 845.10 Sprains And Strains Of Foot, Unspecified Site 11/28/2009 NAIN HARO DO 719.47 Pain In Joint Involving Ankle And Foot 11/28/2009 NAIN HARO DO K 845.10 Sprains And Strains Of Foot, Unspecified Site 11/28/2009 NAHOMY BETH MD 719.47 Pain In Joint Involving Ankle And Foot 11/28/2009 NAHOMY BETH MD 845.10 Sprains And Strains Of Foot, Unspecified Site 11/28/2009 CASIE ARRIAGA DPM 719.47 Pain In Joint Involving Ankle And Foot 11/28/2009 CASIE ARRIAGA DPM 845.10 Sprains And Strains Of Foot, Unspecified Site 11/28/2009 CASIE ARRIAGA DPM 719.47 Pain In Joint Involving Ankle And Foot 11/28/2009 CASIE ARRIAGA DPM 845.10 Sprains And Strains Of Foot, Unspecified Site 11/28/2009 NAHOMY BETH MD 719.47 Pain In Joint Involving Ankle And Foot 11/28/2009 NAHOMY BETH MD 845.10 Sprains And Strains Of Foot, Unspecified Site 11/28/2009 SATYA DPM, CASIE 719.47 Pain In Joint Involving Ankle And Foot 11/28/2009 SATYA DPM, CASIE 845.10 Sprains And Strains Of Foot, Unspecified Site 11/28/2009 NAHOMY BETH MD 719.47 Pain In Joint Involving Ankle And Foot 11/28/2009 NAHOMY BETH MD 845.10 Sprains And Strains Of Foot, Unspecified Site 12/01/2009 NAHOMY BETH MD 781.0 ABNORMAL INVOLUNTARY MOVEMENTS 12/01/2009 NAHOMY BETH MD 844.0 Sprains And Strains Of Knee And Leg, Lateral Collateral Ligament Of Knee 12/01/2009 NAHOMY BETH MD 781.0 ABNORMAL INVOLUNTARY MOVEMENTS 12/01/2009 NAHOMY BETH MD 844.0 Sprains And Strains Of Knee And Leg, Lateral Collateral Ligament Of Knee 12/01/2009 781.0 ABNORMAL INVOLUNTARY MOVEMENTS 12/01/2009 844.0 Sprains And Strains Of Knee And Leg, Lateral Collateral Ligament Of Knee 12/01/2009 781.0 ABNORMAL INVOLUNTARY MOVEMENTS 12/01/2009 844.0 Sprains And Strains Of Knee And Leg, Lateral Collateral Ligament Of Knee 12/01/2009 781.0 ABNORMAL INVOLUNTARY MOVEMENTS 12/01/2009 844.0 Sprains And Strains Of Knee And Leg, Lateral Collateral Ligament Of Knee 12/01/2009 781.0 ABNORMAL INVOLUNTARY MOVEMENTS 12/01/2009 844.0 Sprains And Strains Of Knee And Leg, Lateral Collateral Ligament Of Knee 12/01/2009 781.0 ABNORMAL INVOLUNTARY MOVEMENTS 12/01/2009 844.0 Sprains And Strains Of Knee And Leg, Lateral Collateral Ligament Of Knee 12/01/2009 NAHOMY BETH MD 781.0 ABNORMAL INVOLUNTARY MOVEMENTS 12/01/2009 NAHOMY BETH MD 844.0 Sprains And Strains Of Knee And Leg, Lateral Collateral Ligament Of Knee 12/01/2009 NAHOMY BETH MD 781.0 ABNORMAL INVOLUNTARY MOVEMENTS 12/01/2009 NAHOMY BETH MD 844.0 Sprains And Strains Of Knee And Leg, Lateral Collateral Ligament Of Knee 12/01/2009 HARO DO, NAIN K 781.0 ABNORMAL INVOLUNTARY MOVEMENTS 12/01/2009 HARO DO, NAIN K 844.0 Sprains And Strains Of Knee And Leg, Lateral Collateral Ligament Of Knee 12/01/2009 NAHOMY BETH MD 781.0 ABNORMAL INVOLUNTARY MOVEMENTS 12/01/2009 NAHOMY BETH MD 844.0 Sprains And Strains Of Knee And Leg, Lateral Collateral Ligament Of Knee 12/01/2009 NAHOMY BETH MD 781.0 ABNORMAL INVOLUNTARY MOVEMENTS 12/01/2009 NAHOMY BETH MD 844.0 Sprains And Strains Of Knee And Leg, Lateral Collateral Ligament Of Knee 12/01/2009 HARO DO, NAIN K 781.0 ABNORMAL INVOLUNTARY MOVEMENTS 12/01/2009 HARO DO, NAIN K 844.0 Sprains And Strains Of Knee And Leg, Lateral Collateral Ligament Of Knee 12/01/2009 HARO DO, NAIN K 781.0 ABNORMAL INVOLUNTARY MOVEMENTS 12/01/2009 HARO DO, NAIN K 844.0 Sprains And Strains Of Knee And Leg, Lateral Collateral Ligament Of Knee 12/01/2009 NAHOMY BETH MD 781.0 ABNORMAL INVOLUNTARY MOVEMENTS 12/01/2009 NAHOMY BETH MD 844.0 Sprains And Strains Of Knee And Leg, Lateral Collateral Ligament Of Knee 12/01/2009 SATYA DPM, CASIE 781.0 ABNORMAL INVOLUNTARY MOVEMENTS 12/01/2009 SATYA DPM, CASIE 844.0 Sprains And Strains Of Knee And Leg, Lateral Collateral Ligament Of Knee 12/01/2009 SATYA DPJuanpablo, CASIE 781.0 ABNORMAL INVOLUNTARY MOVEMENTS 12/01/2009 SATYA DPM, CASIE 844.0 Sprains And Strains Of Knee And Leg, Lateral Collateral Ligament Of Knee 12/01/2009 NAHOMY BETH MD 781.0 ABNORMAL INVOLUNTARY MOVEMENTS 12/01/2009 NAHOMY BETH MD 844.0 Sprains And Strains Of Knee And Leg, Lateral Collateral Ligament Of Knee 12/01/2009 SATYA DPJuanpablo, CASIE 781.0 ABNORMAL INVOLUNTARY MOVEMENTS 12/01/2009 SATYA DPM, CASIE 844.0 Sprains And Strains Of Knee And Leg, Lateral Collateral Ligament Of Knee 12/01/2009 NAHOMY BETH MD 781.0 ABNORMAL INVOLUNTARY MOVEMENTS 12/01/2009 IGNACIA CARRERO, NAHOMY 844.0 Sprains And Strains Of Knee And Leg, Lateral Collateral Ligament Of Knee 12/14/2009 Ot 285.21 12/14/2009 Ot 585.9 12/14/2009 Ot V58.81 01/09/2010 IGNACIA CARRERO, NAHOMY 459.81 VENOUS (PERIPHERAL) INSUFFICIENCY, UNSPECIFIED 01/09/2010 IGNACIA CARRERO, NAHOMY Hurd.9 CHRONIC KIDNEY DISEASE, UNSPECIFIED 01/09/2010 IGNACIA CARRERO, NAHOMY 459.81 VENOUS (PERIPHERAL) INSUFFICIENCY, UNSPECIFIED 01/09/2010 IGNACIA CARRERO, NAHOMY Clancy5.9 CHRONIC KIDNEY DISEASE, UNSPECIFIED 01/09/2010 459.81 VENOUS (PERIPHERAL) INSUFFICIENCY, UNSPECIFIED 01/09/2010 585.9 CHRONIC KIDNEY DISEASE, UNSPECIFIED 01/09/2010 459.81 VENOUS (PERIPHERAL) INSUFFICIENCY, UNSPECIFIED 01/09/2010 585.9 CHRONIC KIDNEY DISEASE, UNSPECIFIED 01/09/2010 459.81 VENOUS (PERIPHERAL) INSUFFICIENCY, UNSPECIFIED 01/09/2010 585.9 CHRONIC KIDNEY DISEASE, UNSPECIFIED 01/09/2010 459.81 VENOUS (PERIPHERAL) INSUFFICIENCY, UNSPECIFIED 01/09/2010 585.9 CHRONIC KIDNEY DISEASE, UNSPECIFIED 01/09/2010 459.81 VENOUS (PERIPHERAL) INSUFFICIENCY, UNSPECIFIED 01/09/2010 585.9 CHRONIC KIDNEY DISEASE, UNSPECIFIED 01/09/2010 NAHOMY BETH MD 459.81 VENOUS (PERIPHERAL) INSUFFICIENCY, UNSPECIFIED 01/09/2010 NAHOMY BETH MD.9 CHRONIC KIDNEY DISEASE, UNSPECIFIED 01/09/2010 NAHOMY BETH MD 459.81 VENOUS (PERIPHERAL) INSUFFICIENCY, UNSPECIFIED 01/09/2010 NAHOMY BETH MD5.9 CHRONIC KIDNEY DISEASE, UNSPECIFIED 01/09/2010 NAIN HARO DO 459.81 VENOUS (PERIPHERAL) INSUFFICIENCY, UNSPECIFIED 01/09/2010 NAIN HARO DO 585.9 CHRONIC KIDNEY DISEASE, UNSPECIFIED 01/09/2010 NAHOMY BETH MD 459.81 VENOUS (PERIPHERAL) INSUFFICIENCY, UNSPECIFIED 01/09/2010 NAHOMY BETH MD.9 CHRONIC KIDNEY DISEASE, UNSPECIFIED 01/09/2010 NAHOMY BETH MD 459.81 VENOUS (PERIPHERAL) INSUFFICIENCY, UNSPECIFIED 01/09/2010 IGNACIA CARRERO, NAHOMY 585.9 CHRONIC KIDNEY DISEASE, UNSPECIFIED 01/09/2010 NAIN HARO DO 459.81 VENOUS (PERIPHERAL) INSUFFICIENCY, UNSPECIFIED 01/09/2010 NAIN HARO DO 585.9 CHRONIC KIDNEY DISEASE, UNSPECIFIED 01/09/2010 ESTRELLITA DOWELL, NAIN Martino 459.81 VENOUS (PERIPHERAL) INSUFFICIENCY, UNSPECIFIED 01/09/2010 NAIN HARO DO 585.9 CHRONIC KIDNEY DISEASE, UNSPECIFIED 01/09/2010 NAHOMY BETH MD 459.81 VENOUS (PERIPHERAL) INSUFFICIENCY, UNSPECIFIED 01/09/2010 NAHOMY BETH MD.9 CHRONIC KIDNEY DISEASE, UNSPECIFIED 01/09/2010 SATYA DPM, CASIE 459.81 VENOUS (PERIPHERAL) INSUFFICIENCY, UNSPECIFIED 01/09/2010 SATYA DPM, CASIE 585.9 CHRONIC KIDNEY DISEASE, UNSPECIFIED 01/09/2010 SATYA DPM, CASIE 459.81 VENOUS (PERIPHERAL) INSUFFICIENCY, UNSPECIFIED 01/09/2010 SATYA DPM, CASIE 585.9 CHRONIC KIDNEY DISEASE, UNSPECIFIED 01/09/2010 NAHOMY BETH MD 459.81 VENOUS (PERIPHERAL) INSUFFICIENCY, UNSPECIFIED 01/09/2010 NAHOMY BETH MD.9 CHRONIC KIDNEY DISEASE, UNSPECIFIED 01/09/2010 SATYA DPM, CASIE 459.81 VENOUS (PERIPHERAL) INSUFFICIENCY, UNSPECIFIED 01/09/2010 SATYA DPM, CASIE 585.9 CHRONIC KIDNEY DISEASE, UNSPECIFIED 01/09/2010 NAHOMY BETH MD 459.81 VENOUS (PERIPHERAL) INSUFFICIENCY, UNSPECIFIED 01/09/2010 NAHOMY BETH MD.9 CHRONIC KIDNEY DISEASE, UNSPECIFIED 02/23/2010 NAHOMY BETH MD 599.0 Urinary Tract Infection 02/23/2010 NAHOMY BETH MD 599.0 Urinary Tract Infection 02/23/2010 599.0 Urinary Tract Infection 02/23/2010 599.0 Urinary Tract Infection 02/23/2010 599.0 Urinary Tract Infection 02/23/2010 599.0 Urinary Tract Infection 02/23/2010 599.0 Urinary Tract Infection 02/23/2010 NAHOYM BETH MD 599.0 Urinary Tract Infection 02/23/2010 IGNACIA CARRERO, NAHOMY 599.0 Urinary Tract Infection 02/23/2010 NAIN HARO DO 599.0 Urinary Tract Infection 02/23/2010 NAHOMY BETH MD 599.0 Urinary Tract Infection 02/23/2010 NAHOMY BETH MD 599.0 Urinary Tract Infection 02/23/2010 ESTRELLITA DOWELL, NAIN Martino 599.0 Urinary Tract Infection 02/23/2010 NAIN HARO DO K 599.0 Urinary Tract Infection 02/23/2010 NAHOMY BETH MD 599.0 Urinary Tract Infection 02/23/2010 SATYA DPM, CASIE 599.0 Urinary Tract Infection 02/23/2010 SATYA DPM, CASIE 599.0 Urinary Tract Infection 02/23/2010 NAHOMY BETH MD 599.0 Urinary Tract Infection 02/23/2010 SATYA DPM, CASIE 599.0 Urinary Tract Infection 02/23/2010 NAHOMY BETH MD 599.0 Urinary Tract Infection 03/07/2010 Ot 355.9 03/07/2010 Ot 428.0 03/07/2010 Ot 434.91 03/07/2010 Ot 586 03/07/2010 Ot 782.3 03/07/2010 Ot V58.61 04/10/2010 NAHOMY BETH MD 46Stella Pharyngitis Acute 04/10/2010 NAHOMY BETH MD 462 Pharyngitis Acute 04/10/2010 462 Pharyngitis Acute 04/10/2010 462 Pharyngitis Acute 04/10/2010 462 Pharyngitis Acute 04/10/2010 462 Pharyngitis Acute 04/10/2010 462 Pharyngitis Acute 04/10/2010 NAHOMY BETH MD 462 Pharyngitis Acute 04/10/2010 NAHOMY BETH MD 462 Pharyngitis Acute 04/10/2010 NAIN HARO DO 462 Pharyngitis Acute 04/10/2010 NAHOMY BETH MD 462 Pharyngitis Acute 04/10/2010 NAHOMY BETH MD 462 Pharyngitis Acute 04/10/2010 NAIN HARO DO 462 Pharyngitis Acute 04/10/2010 NAIN HARO DO 462 Pharyngitis Acute 04/10/2010 NAHOMY BETH MD 462 Pharyngitis Acute 04/10/2010 SATYA DPM, CASIE 462 Pharyngitis Acute 04/10/2010 SATYA DPM, CASIE 462 Pharyngitis Acute 04/10/2010 NAHOMY BETH MD 462 Pharyngitis Acute 04/10/2010 SATYA DPM, CASIE 462 Pharyngitis Acute 04/10/2010 IGNACIA CARRERO, NAHOMY 462 Pharyngitis Acute 04/24/2010 NAHOMY BETH MD 789.00 Abdominal Pain Unspecified Site 04/24/2010 NAHOMY BETH MD 789.00 Abdominal Pain Unspecified Site 04/24/2010 789.00 Abdominal Pain Unspecified Site 04/24/2010 789.00 Abdominal Pain Unspecified Site 04/24/2010 789.00 Abdominal Pain Unspecified Site 04/24/2010 789.00 Abdominal Pain Unspecified Site 04/24/2010 789.00 Abdominal Pain Unspecified Site 04/24/2010 NAHOMY BETH MD 789.00 Abdominal Pain Unspecified Site 04/24/2010 NAHOMY BETH MD 789.00 Abdominal Pain Unspecified Site 04/24/2010 HARO DO, NAIN K 789.00 Abdominal Pain Unspecified Site 04/24/2010 NAHOMY BETH MD 789.00 Abdominal Pain Unspecified Site 04/24/2010 NAHOMY BETH MD 789.00 Abdominal Pain Unspecified Site 04/24/2010 HARO DO, NAIN K 789.00 Abdominal Pain Unspecified Site 04/24/2010 HARO DO, NAIN K 789.00 Abdominal Pain Unspecified Site 04/24/2010 NAHOMY BETH MD 789.00 Abdominal Pain Unspecified Site 04/24/2010 SATYA DPM, CASIE 789.00 Abdominal Pain Unspecified Site 04/24/2010 SATYA DPM, CASIE 789.00 Abdominal Pain Unspecified Site 04/24/2010 NAHOMY BETH MD 789.00 Abdominal Pain Unspecified Site 04/24/2010 SATYA DPM, CASIE 789.00 Abdominal Pain Unspecified Site 04/24/2010 NAHOMY BETH MD 789.00 Abdominal Pain Unspecified Site 06/05/2010 NAHOMY BETH MD 112.1 Candidiasis Of Vulva And Vagina 06/05/2010 NAHOMY BETH MD 112.1 Candidiasis Of Vulva And Vagina 06/05/2010 112.1 Candidiasis Of Vulva And Vagina 06/05/2010 112.1 Candidiasis Of Vulva And Vagina 06/05/2010 112.1 Candidiasis Of Vulva And Vagina 06/05/2010 112.1 Candidiasis Of Vulva And Vagina 06/05/2010 112.1 Candidiasis Of Vulva And Vagina 06/05/2010 NAHOMY BETH MD 112.1 Candidiasis Of Vulva And Vagina 06/05/2010 NAHOMY BETH MD 112.1 Candidiasis Of Vulva And Vagina 06/05/2010 HARO DO NAIN K 112.1 Candidiasis Of Vulva And Vagina 06/05/2010 NAHOMY BETH MD 112.1 Candidiasis Of Vulva And Vagina 06/05/2010 NAHOMY BETH MD 112.1 Candidiasis Of Vulva And Vagina 06/05/2010 HARO DO NAIN K 112.1 Candidiasis Of Vulva And Vagina 06/05/2010 HARO DO NAIN K 112.1 Candidiasis Of Vulva And Vagina 06/05/2010 NAHOMY BETH MD 112.1 Candidiasis Of Vulva And Vagina 06/05/2010 SATYA DPM, CASIE 112.1 Candidiasis Of Vulva And Vagina 06/05/2010 SATYA DPJuanpablo, CASIE 112.1 Candidiasis Of Vulva And Vagina 06/05/2010 NAHOMY BETH MD 112.1 Candidiasis Of Vulva And Vagina 06/05/2010 SATYA DPJuanpablo, CASIE 112.1 Candidiasis Of Vulva And Vagina 06/05/2010 NAHOMY BETH MD 112.1 Candidiasis Of Vulva And Vagina 06/14/2010 Ot 355.9 06/14/2010 Ot 428.0 06/14/2010 Ot 434.91 06/14/2010 Ot 586 06/14/2010 Ot 782.3 06/14/2010 Ot V58.61 08/18/2010 NAHOMY BETH MD 465.9 Acute Upper Respiratory Infections Of Unspecified Site 08/18/2010 NAHOMY BETH MD 465.9 Acute Upper Respiratory Infections Of Unspecified Site 08/18/2010 465.9 Acute Upper Respiratory Infections Of Unspecified Site 08/18/2010 465.9 Acute Upper Respiratory Infections Of Unspecified Site 08/18/2010 465.9 Acute Upper Respiratory Infections Of Unspecified Site 08/18/2010 465.9 Acute Upper Respiratory Infections Of Unspecified Site 08/18/2010 465.9 Acute Upper Respiratory Infections Of Unspecified Site 08/18/2010 NAHOMY BETH MD 465.9 Acute Upper Respiratory Infections Of Unspecified Site 08/18/2010 NAHOMY BETH MD 465.9 Acute Upper Respiratory Infections Of Unspecified Site 08/18/2010 HARO DO, NAIN K 465.9 Acute Upper Respiratory Infections Of Unspecified Site 08/18/2010 NAHOMY BETH MD 465.9 Acute Upper Respiratory Infections Of Unspecified Site 08/18/2010 NAHOMY BETH MD 465.9 Acute Upper Respiratory Infections Of Unspecified Site 08/18/2010 HARO DO, NAIN K 465.9 Acute Upper Respiratory Infections Of Unspecified Site 08/18/2010 HARO DO, NAIN K 465.9 Acute Upper Respiratory Infections Of Unspecified Site 08/18/2010 NAHOMY BETH MD 465.9 Acute Upper Respiratory Infections Of Unspecified Site 08/18/2010 UMM ARRIAGA DPMIN 465.9 Acute Upper Respiratory Infections Of Unspecified Site 08/18/2010 CASIE ARRIAGA DPM 465.9 Acute Upper Respiratory Infections Of Unspecified Site 08/18/2010 NAHOMY BETH MD 465.9 Acute Upper Respiratory Infections Of Unspecified Site 08/18/2010 CASIE ARRIAGA DPM 465.9 Acute Upper Respiratory Infections Of Unspecified Site 08/18/2010 NAHOMY BETH MD 465.9 Acute Upper Respiratory Infections Of Unspecified Site 09/13/2010 Ot 355.9 09/13/2010 Ot 428.0 09/13/2010 Ot 434.91 09/13/2010 Ot 586 09/13/2010 Ot 782.3 09/13/2010 Ot V58.61 11/13/2010 Ot 592.0 12/13/2010 Ot 355.9 12/13/2010 Ot 428.0 12/13/2010 Ot 434.91 12/13/2010 Ot 586 12/13/2010 Ot 782.3 12/13/2010 Ot V58.61 04/03/2011 Ot 355.9 04/03/2011 Ot 428.0 04/03/2011 Ot 434.91 04/03/2011 Ot 586 04/03/2011 Ot 782.3 04/03/2011 Ot V58.61 05/10/2011 IGNACIA CARRERO, NAHOMY 789.00 Abdominal Pain Unspecified Site 05/10/2011 IGNACIA CARRERO, NAHOMY 789.00 Abdominal Pain Unspecified Site 05/10/2011 789.00 Abdominal Pain Unspecified Site 05/10/2011 789.00 Abdominal Pain Unspecified Site 05/10/2011 789.00 Abdominal Pain Unspecified Site 05/10/2011 789.00 Abdominal Pain Unspecified Site 05/10/2011 789.00 Abdominal Pain Unspecified Site 05/10/2011 IGNACIA CARRERO, NAHOMY 789.00 Abdominal Pain Unspecified Site 05/10/2011 IGNACIA CARRERO, NAHOMY 789.00 Abdominal Pain Unspecified Site 05/10/2011 HARO DO, NAIN K 789.00 Abdominal Pain Unspecified Site 05/10/2011 IGNACIA CARRERO, NAHOMY 789.00 Abdominal Pain Unspecified Site 05/10/2011 IGNACIA CARRERO, NAHOMY 789.00 Abdominal Pain Unspecified Site 05/10/2011 HARO DO, NAIN K 789.00 Abdominal Pain Unspecified Site 05/10/2011 HARO DO, NAIN K 789.00 Abdominal Pain Unspecified Site 05/10/2011 IGNACIA CARRERO, NAHOMY 789.00 Abdominal Pain Unspecified Site 05/10/2011 SATYA DPM, CASIE 789.00 Abdominal Pain Unspecified Site 05/10/2011 SATYA DPM, CASIE 789.00 Abdominal Pain Unspecified Site 05/10/2011 IGNACIA CARRERO, NAHOMY 789.00 Abdominal Pain Unspecified Site 05/10/2011 SATYA DPM, CASIE 789.00 Abdominal Pain Unspecified Site 05/10/2011 NAHOMY BETH MD 789.00 Abdominal Pain Unspecified Site 06/04/2011 NAHOMY BETH MD V58.69 MEDICATION HIGH RISK 06/04/2011 NAHOMY BETH MD V58.69 MEDICATION HIGH RISK 06/04/2011 V58.69 MEDICATION HIGH RISK 06/04/2011 V58.69 MEDICATION HIGH RISK 06/04/2011 V58.69 MEDICATION HIGH RISK 06/04/2011 V58.69 MEDICATION HIGH RISK 06/04/2011 V58.69 MEDICATION HIGH RISK 06/04/2011 NAHOMY BETH MD V58.69 MEDICATION HIGH RISK 06/04/2011 NAHOMY BETH MD V58.69 MEDICATION HIGH RISK 06/04/2011 HARO DO, NAIN K V58.69 MEDICATION HIGH RISK 06/04/2011 NAHOMY BETH MD V58.69 MEDICATION HIGH RISK 06/04/2011 NAHOMY BETH MD V58.69 MEDICATION HIGH RISK 06/04/2011 HARO DO, NAIN K V58.69 MEDICATION HIGH RISK 06/04/2011 HARO DO, NAIN K V58.69 MEDICATION HIGH RISK 06/04/2011 NAHOMY BETH MD V58.69 MEDICATION HIGH RISK 06/04/2011 SATYA DPM, CASIE V58.69 MEDICATION HIGH RISK 06/04/2011 SATYA DPM, CASIE V58.69 MEDICATION HIGH RISK 06/04/2011 NAHOMY BETH MD V58.69 MEDICATION HIGH RISK 06/04/2011 SATYA DPM, CASIE V58.69 MEDICATION HIGH RISK 06/04/2011 NAHOMY BETH MD V58.69 MEDICATION HIGH RISK 06/21/2011 NAHOMY BETH MD 686.9 Unspecified Local Infection Of Skin And Subcutaneous Tissue 06/21/2011 NAHOMY BETH MD 924.9 Contusion Of Unspecified Site 06/21/2011 NAHOMY BETH MD6.9 Unspecified Local Infection Of Skin And Subcutaneous Tissue 06/21/2011 NAHOMY BETH MD 924.9 Contusion Of Unspecified Site 06/21/2011 686.9 Unspecified Local Infection Of Skin And Subcutaneous Tissue 06/21/2011 924.9 Contusion Of Unspecified Site 06/21/2011 686.9 Unspecified Local Infection Of Skin And Subcutaneous Tissue 06/21/2011 924.9 Contusion Of Unspecified Site 06/21/2011 686.9 Unspecified Local Infection Of Skin And Subcutaneous Tissue 06/21/2011 924.9 Contusion Of Unspecified Site 06/21/2011 686.9 Unspecified Local Infection Of Skin And Subcutaneous Tissue 06/21/2011 924.9 Contusion Of Unspecified Site 06/21/2011 686.9 Unspecified Local Infection Of Skin And Subcutaneous Tissue 06/21/2011 924.9 Contusion Of Unspecified Site 06/21/2011 NAHOMY BETH MD 686.9 Unspecified Local Infection Of Skin And Subcutaneous Tissue 06/21/2011 NAHOMY BETH MD 924.9 Contusion Of Unspecified Site 06/21/2011 NAHOMY BETH MD6.9 Unspecified Local Infection Of Skin And Subcutaneous Tissue 06/21/2011 NAHOMY BETH MD4.9 Contusion Of Unspecified Site 06/21/2011 NAIN HARO DO K 686.9 Unspecified Local Infection Of Skin And Subcutaneous Tissue 06/21/2011 ESTRELLITA DOWELL NAIN K 924.9 Contusion Of Unspecified Site 06/21/2011 NAHOMY BETH MD6.9 Unspecified Local Infection Of Skin And Subcutaneous Tissue 06/21/2011 NAHOMY BETH MD4.9 Contusion Of Unspecified Site 06/21/2011 NAHOMY BETH MD6.9 Unspecified Local Infection Of Skin And Subcutaneous Tissue 06/21/2011 NAHOMY BETH MD 924.9 Contusion Of Unspecified Site 06/21/2011 HARO DO NAIN K 686.9 Unspecified Local Infection Of Skin And Subcutaneous Tissue 06/21/2011 HARO KRYSTAL DOWELLA K 924.9 Contusion Of Unspecified Site 06/21/2011 HARO DO NAIN K 686.9 Unspecified Local Infection Of Skin And Subcutaneous Tissue 06/21/2011 HARO DO NAIN K 924.9 Contusion Of Unspecified Site 06/21/2011 NAHOMY BETH MD 686.9 Unspecified Local Infection Of Skin And Subcutaneous Tissue 06/21/2011 NAHOMY BETH MD 924.9 Contusion Of Unspecified Site 06/21/2011 SATYA DPM, CASIE 686.9 Unspecified Local Infection Of Skin And Subcutaneous Tissue 06/21/2011 SATYA DPM, CASIE 924.9 Contusion Of Unspecified Site 06/21/2011 SATYA DPM, CASIE 686.9 Unspecified Local Infection Of Skin And Subcutaneous Tissue 06/21/2011 SATYA DPM, CASIE 924.9 Contusion Of Unspecified Site 06/21/2011 NAHOMY BETH MD6.9 Unspecified Local Infection Of Skin And Subcutaneous Tissue 06/21/2011 NAHOMY BETH MD 924.9 Contusion Of Unspecified Site 06/21/2011 SATYA DPM, CASIE 686.9 Unspecified Local Infection Of Skin And Subcutaneous Tissue 06/21/2011 SATYA DPM, CASIE 924.9 Contusion Of Unspecified Site 06/21/2011 NAHOMY BETH MD 686.9 Unspecified Local Infection Of Skin And Subcutaneous Tissue 06/21/2011 NAHOMY BETH MD 924.9 Contusion Of Unspecified Site 07/03/2011 NAHOMY BETH MD 465.9 Acute Upper Respiratory Infections Of Unspecified Site 07/03/2011 NAHOMY BETH MD 707.10 Unspecified Ulcer Of Lower Limb 07/03/2011 NAHOMY BETH MD 465.9 Acute Upper Respiratory Infections Of Unspecified Site 07/03/2011 NAHOMY BETH MD 707.10 Unspecified Ulcer Of Lower Limb 07/03/2011 465.9 Acute Upper Respiratory Infections Of Unspecified Site 07/03/2011 707.10 Unspecified Ulcer Of Lower Limb 07/03/2011 465.9 Acute Upper Respiratory Infections Of Unspecified Site 07/03/2011 707.10 Unspecified Ulcer Of Lower Limb 07/03/2011 465.9 Acute Upper Respiratory Infections Of Unspecified Site 07/03/2011 707.10 Unspecified Ulcer Of Lower Limb 07/03/2011 465.9 Acute Upper Respiratory Infections Of Unspecified Site 07/03/2011 707.10 Unspecified Ulcer Of Lower Limb 07/03/2011 465.9 Acute Upper Respiratory Infections Of Unspecified Site 07/03/2011 707.10 Unspecified Ulcer Of Lower Limb 07/03/2011 NAHOMY BETH MD 465.9 Acute Upper Respiratory Infections Of Unspecified Site 07/03/2011 NAHOMY BETH MD 707.10 Unspecified Ulcer Of Lower Limb 07/03/2011 NAHOMY BETH MD 465.9 Acute Upper Respiratory Infections Of Unspecified Site 07/03/2011 NAHOMY BETH MD 707.10 Unspecified Ulcer Of Lower Limb 07/03/2011 HARO DONAIN K 465.9 Acute Upper Respiratory Infections Of Unspecified Site 07/03/2011 HARO DONAIN K 707.10 Unspecified Ulcer Of Lower Limb 07/03/2011 NAHOMY BETH MD 465.9 Acute Upper Respiratory Infections Of Unspecified Site 07/03/2011 NAHOMY BETH MD 707.10 Unspecified Ulcer Of Lower Limb 07/03/2011 NAHOMY BETH MD 465.9 Acute Upper Respiratory Infections Of Unspecified Site 07/03/2011 NAHOMY BETH MD 707.10 Unspecified Ulcer Of Lower Limb 07/03/2011 KRYSTAL HARO DOA K 465.9 Acute Upper Respiratory Infections Of Unspecified Site 07/03/2011 NAIN HARO DO K 707.10 Unspecified Ulcer Of Lower Limb 07/03/2011 HARO NAIN DOWELL K 465.9 Acute Upper Respiratory Infections Of Unspecified Site 07/03/2011 HARO NAIN DOWELL K 707.10 Unspecified Ulcer Of Lower Limb 07/03/2011 NAHOMY BETH MD 465.9 Acute Upper Respiratory Infections Of Unspecified Site 07/03/2011 NAHOMY BETH MD 707.10 Unspecified Ulcer Of Lower Limb 07/03/2011 SATYA DPM, CASIE 465.9 Acute Upper Respiratory Infections Of Unspecified Site 07/03/2011 SATYA DPM, CASIE 707.10 Unspecified Ulcer Of Lower Limb 07/03/2011 SATYA DPM, CASIE 465.9 Acute Upper Respiratory Infections Of Unspecified Site 07/03/2011 SATYA DPM, CASIE 707.10 Unspecified Ulcer Of Lower Limb 07/03/2011 NAHOMY BETH MD 465.9 Acute Upper Respiratory Infections Of Unspecified Site 07/03/2011 NAHOMY BETH MD 707.10 Unspecified Ulcer Of Lower Limb 07/03/2011 SATYA DPM, CASIE 465.9 Acute Upper Respiratory Infections Of Unspecified Site 07/03/2011 SATYA DPM, CASIE 707.10 Unspecified Ulcer Of Lower Limb 07/03/2011 NAHOMY BETH MD 465.9 Acute Upper Respiratory Infections Of Unspecified Site 07/03/2011 NAHOMY BETH MD 707.10 Unspecified Ulcer Of Lower Limb 08/02/2011 Ot 709.8 SKIN DISORDERS NEC 09/17/2011 NAHOMY BETH MD 780.39 OTHER CONVULSIONS 09/17/2011 NAHOMY BETH MD 780.39 OTHER CONVULSIONS 09/17/2011 780.39 OTHER CONVULSIONS 09/17/2011 780.39 OTHER CONVULSIONS 09/17/2011 780.39 OTHER CONVULSIONS 09/17/2011 780.39 OTHER CONVULSIONS 09/17/2011 780.39 OTHER CONVULSIONS 09/17/2011 NAHOMY BETH MD 780.39 OTHER CONVULSIONS 09/17/2011 NAHOMY BETH MD 780.39 OTHER CONVULSIONS 09/17/2011 HARO DO, NAIN K 780.39 OTHER CONVULSIONS 09/17/2011 NAHOMY BETH MD 780.39 OTHER CONVULSIONS 09/17/2011 NAHOMY BETH MD 780.39 OTHER CONVULSIONS 09/17/2011 NAIN HARO DO K 780.39 OTHER CONVULSIONS 09/17/2011 HARO DO NAIN K 780.39 OTHER CONVULSIONS 09/17/2011 NAHOMY BETH MD 780.39 OTHER CONVULSIONS 09/17/2011 SATYA DPM, CASIE 780.39 OTHER CONVULSIONS 09/17/2011 SATYA DPM, CASIE 780.39 OTHER CONVULSIONS 09/17/2011 NAHOMY BETH MD 780.39 OTHER CONVULSIONS 09/17/2011 SATYA DPM, CASIE 780.39 OTHER CONVULSIONS 09/17/2011 NAHOMY BETH MD 780.39 OTHER CONVULSIONS 09/25/2011 NAHOMY BETH MD 112.3 Candidiasis Of Skin And Nails 09/25/2011 NAHOMY BETH MD 112.3 Candidiasis Of Skin And Nails 09/25/2011 112.3 Candidiasis Of Skin And Nails 09/25/2011 112.3 Candidiasis Of Skin And Nails 09/25/2011 112.3 Candidiasis Of Skin And Nails 09/25/2011 112.3 Candidiasis Of Skin And Nails 09/25/2011 112.3 Candidiasis Of Skin And Nails 09/25/2011 NAHOMY BETH MD 112.3 Candidiasis Of Skin And Nails 09/25/2011 NAHOMY BETH MD 112.3 Candidiasis Of Skin And Nails 09/25/2011 NAIN HARO DO 112.3 Candidiasis Of Skin And Nails 09/25/2011 NAHOMY BETH MD 112.3 Candidiasis Of Skin And Nails 09/25/2011 NAHOMY BETH MD 112.3 Candidiasis Of Skin And Nails 09/25/2011 NAIN HARO DO 112.3 Candidiasis Of Skin And Nails 09/25/2011 NAIN HARO DO K 112.3 Candidiasis Of Skin And Nails 09/25/2011 NAHOMY BETH MD 112.3 Candidiasis Of Skin And Nails 09/25/2011 SATYA DPM, CASIE 112.3 Candidiasis Of Skin And Nails 09/25/2011 SATYA DPJuanpablo, CASIE 112.3 Candidiasis Of Skin And Nails 09/25/2011 NAHOMY BETH MD 112.3 Candidiasis Of Skin And Nails 09/25/2011 CASIE ARRIAGA DPM 112.3 Candidiasis Of Skin And Nails 09/25/2011 NAHOMY BETH MD 112.3 Candidiasis Of Skin And Nails 10/11/2011 Ot 434.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 10/11/2011 Ot 780.39 OTHER CONVULSIONS 10/14/2011 Ot 414.01 CORONARY ATHEROSCLEROSIS OF [place] CORON 10/14/2011 Ot 891.0 OPEN WND KNEE/LEG/ANKLE 10/14/2011 Ot E000.8 OTHER EXTERNAL CAUSE STATUS 10/14/2011 Ot E928.9 ACCIDENT NOS 10/14/2011 Ot V58.30 ENCOUNTER FOR CHANGE OR REMOVAL OF NONSU 01/03/2012 NAHOMY BETH MD 112.1 Candidiasis Of Vulva And Vagina 01/03/2012 NAHOMY BETH MD 112.1 Candidiasis Of Vulva And Vagina 01/03/2012 112.1 Candidiasis Of Vulva And Vagina 01/03/2012 112.1 Candidiasis Of Vulva And Vagina 01/03/2012 112.1 Candidiasis Of Vulva And Vagina 01/03/2012 112.1 Candidiasis Of Vulva And Vagina 01/03/2012 112.1 Candidiasis Of Vulva And Vagina 01/03/2012 NAHOMY BETH MD 112.1 Candidiasis Of Vulva And Vagina 01/03/2012 NAHOMY BETH MD 112.1 Candidiasis Of Vulva And Vagina 01/03/2012 NAIN HARO DO 112.1 Candidiasis Of Vulva And Vagina 01/03/2012 NAHOMY BETH MD 112.1 Candidiasis Of Vulva And Vagina 01/03/2012 NAHOMY BETH MD 112.1 Candidiasis Of Vulva And Vagina 01/03/2012 NAIN HARO DO 112.1 Candidiasis Of Vulva And Vagina 01/03/2012 NAIN HARO DO 112.1 Candidiasis Of Vulva And Vagina 01/03/2012 NAHOMY BETH MD 112.1 Candidiasis Of Vulva And Vagina 01/03/2012 CASIE ARRIAGA DPM 112.1 Candidiasis Of Vulva And Vagina 01/03/2012 CASIE ARRIAGA DPM 112.1 Candidiasis Of Vulva And Vagina 01/03/2012 NAHOMY BETH MD 112.1 Candidiasis Of Vulva And Vagina 01/03/2012 CASIE ARRIAGA DPM 112.1 Candidiasis Of Vulva And Vagina 01/03/2012 NAHOMY BETH MD 112.1 Candidiasis Of Vulva And Vagina 01/15/2012 NAHOMY BETH MD6.10 Vaginitis Vulvovaginitis Unspecified 01/15/2012 NAHOMY BETH MD 616.10 Vaginitis Vulvovaginitis Unspecified 01/15/2012 616.10 Vaginitis Vulvovaginitis Unspecified 01/15/2012 616.10 Vaginitis Vulvovaginitis Unspecified 01/15/2012 616.10 Vaginitis Vulvovaginitis Unspecified 01/15/2012 616.10 Vaginitis Vulvovaginitis Unspecified 01/15/2012 616.10 Vaginitis Vulvovaginitis Unspecified 01/15/2012 NAHOMY BETH MD 616.10 Vaginitis Vulvovaginitis Unspecified 01/15/2012 NAHOMY BETH MD 616.10 Vaginitis Vulvovaginitis Unspecified 01/15/2012 NAIN HARO DO 616.10 Vaginitis Vulvovaginitis Unspecified 01/15/2012 NAHOMY BETH MD 616.10 Vaginitis Vulvovaginitis Unspecified 01/15/2012 NAHOMY BETH MD 616.10 Vaginitis Vulvovaginitis Unspecified 01/15/2012 NAIN HARO DO 616.10 Vaginitis Vulvovaginitis Unspecified 01/15/2012 NAIN HARO DO 616.10 Vaginitis Vulvovaginitis Unspecified 01/15/2012 NAHOMY BETH MD 616.10 Vaginitis Vulvovaginitis Unspecified 01/15/2012 CASIE ARRIAGA DPM 616.10 Vaginitis Vulvovaginitis Unspecified 01/15/2012 CASIE ARRIAGA DPM 616.10 Vaginitis Vulvovaginitis Unspecified 01/15/2012 NAHOMY BETH MD 616.10 Vaginitis Vulvovaginitis Unspecified 01/15/2012 CASIE ARRIAGA DPM 616.10 Vaginitis Vulvovaginitis Unspecified 01/15/2012 NAHOMY BETH MD 616.10 Vaginitis Vulvovaginitis Unspecified 02/27/2012 Ot 355.9 MONONEURITIS NOS 02/27/2012 Ot 428.0 CONGESTIVE HEART FAILURE NOS 02/27/2012 Ot 434.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 02/27/2012 Ot 586 RENAL FAILURE NOS 02/27/2012 Ot 782.3 EDEMA 02/27/2012 Ot V58.61 ANTICOAGULANTS,LT,CURRENT USE 03/17/2012 NAHOMY BETH MD 789.00 Abdominal Pain Unspecified Site 03/17/2012 NAHOMY BETH MD 789.00 Abdominal Pain Unspecified Site 03/17/2012 789.00 Abdominal Pain Unspecified Site 03/17/2012 789.00 Abdominal Pain Unspecified Site 03/17/2012 789.00 Abdominal Pain Unspecified Site 03/17/2012 789.00 Abdominal Pain Unspecified Site 03/17/2012 789.00 Abdominal Pain Unspecified Site 03/17/2012 NAHOMY BETH MD 789.00 Abdominal Pain Unspecified Site 03/17/2012 NAHOMY BETH MD 789.00 Abdominal Pain Unspecified Site 03/17/2012 NAIN HARO DO K 789.00 Abdominal Pain Unspecified Site 03/17/2012 NAHOMY BETH MD 789.00 Abdominal Pain Unspecified Site 03/17/2012 NAHOMY BETH MD 789.00 Abdominal Pain Unspecified Site 03/17/2012 KRYSTAL HARO DOA K 789.00 Abdominal Pain Unspecified Site 03/17/2012 KRYSTAL HARO DOA K 789.00 Abdominal Pain Unspecified Site 03/17/2012 NAHOMY BETH MD 789.00 Abdominal Pain Unspecified Site 03/17/2012 SATYA DPM, CASIE 789.00 Abdominal Pain Unspecified Site 03/17/2012 SATYA DPJuanpablo, CASIE 789.00 Abdominal Pain Unspecified Site 03/17/2012 NAHOMY BETH MD 789.00 Abdominal Pain Unspecified Site 03/17/2012 SATYA DPJuanpablo, CASIE 789.00 Abdominal Pain Unspecified Site 03/17/2012 NAHOMY BETH MD9.00 Abdominal Pain Unspecified Site 04/15/2012 NAHOMY BETH MD 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 04/15/2012 NAHOMY BETH MD 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 04/15/2012 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 04/15/2012 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 04/15/2012 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 04/15/2012 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 04/15/2012 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 04/15/2012 NAHOMY BETH MD 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 04/15/2012 NAHOMY BETH MD 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 04/15/2012 HARO DO, NAIN K 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 04/15/2012 NAHOMY BETH MD 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 04/15/2012 NAHOMY BETH MD 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 04/15/2012 HARO DO, NAIN K 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 04/15/2012 HARO DO, NAIN K 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 04/15/2012 NAHOMY BETH MD 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 04/15/2012 SATYA DPM, CASIE 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 04/15/2012 SATYA DPM, CASIE 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 04/15/2012 NAHOMY BETH MD 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 04/15/2012 SATYA DPM, CASIE 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 04/15/2012 NAHOMY BETH MD 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 05/20/2012 NAHOYM BETH MD 553.1 UMBILICAL HERNIA 05/20/2012 NAHOMY BETH MD 553.1 UMBILICAL HERNIA 05/20/2012 553.1 UMBILICAL HERNIA 05/20/2012 553.1 UMBILICAL HERNIA 05/20/2012 553.1 UMBILICAL HERNIA 05/20/2012 553.1 UMBILICAL HERNIA 05/20/2012 553.1 UMBILICAL HERNIA 05/20/2012 NAHOMY BETH MD 553.1 UMBILICAL HERNIA 05/20/2012 NAHOMY BETH MD 553.1 UMBILICAL HERNIA 05/20/2012 HARO DO, NAIN K 553.1 UMBILICAL HERNIA 05/20/2012 NAHOMY BETH MD 553.1 UMBILICAL HERNIA 05/20/2012 NAHOMY BETH MD 553.1 UMBILICAL HERNIA 05/20/2012 NAIN HARO DO K 553.1 UMBILICAL HERNIA 05/20/2012 ESTRELLITA DOWELL, NAIN K 553.1 UMBILICAL HERNIA 05/20/2012 NAHOMY BETH MD 553.1 UMBILICAL HERNIA 05/20/2012 SATYA DPM, CASIE 553.1 UMBILICAL HERNIA 05/20/2012 SATYA DPM, CASIE 553.1 UMBILICAL HERNIA 05/20/2012 NAHOMY BETH MD 553.1 UMBILICAL HERNIA 05/20/2012 SATYA DPM, CASIE 553.1 UMBILICAL HERNIA 05/20/2012 NAHOMY BETH MD 553.1 UMBILICAL HERNIA 06/04/2012 Ot 355.9 MONONEURITIS NOS 06/04/2012 Ot 428.0 CONGESTIVE HEART FAILURE NOS 06/04/2012 Ot 434.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 06/04/2012 Ot 586 RENAL FAILURE NOS 06/04/2012 Ot 780.39 OTHER CONVULSIONS 06/04/2012 Ot 782.3 EDEMA 06/04/2012 Ot V58.61 ANTICOAGULANTS,LT,CURRENT USE 06/04/2012 Ot V58.81 FIT/ADJ VASCULAR CATHETER 06/24/2012 Ot 355.9 MONONEURITIS NOS 06/24/2012 Ot 428.0 CONGESTIVE HEART FAILURE NOS 06/24/2012 Ot 434.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 06/24/2012 Ot 586 RENAL FAILURE NOS 06/24/2012 Ot 780.39 OTHER CONVULSIONS 06/24/2012 Ot 782.3 EDEMA 06/24/2012 Ot V58.61 ANTICOAGULANTS,LT,CURRENT USE 06/24/2012 Ot V58.81 FIT/ADJ VASCULAR CATHETER 07/31/2012 NAHOMY BETH MD 733.00 OSTEOPOROSIS UNSPECIFIED 07/31/2012 NAHOMY BETH MD 733.00 OSTEOPOROSIS UNSPECIFIED 07/31/2012 733.00 OSTEOPOROSIS UNSPECIFIED 07/31/2012 733.00 OSTEOPOROSIS UNSPECIFIED 07/31/2012 733.00 OSTEOPOROSIS UNSPECIFIED 07/31/2012 733.00 OSTEOPOROSIS UNSPECIFIED 07/31/2012 733.00 OSTEOPOROSIS UNSPECIFIED 07/31/2012 NAHOMY BETH MD 733.00 OSTEOPOROSIS UNSPECIFIED 07/31/2012 NAHOMY BETH MD 733.00 OSTEOPOROSIS UNSPECIFIED 07/31/2012 IGNACIA CARRERO, NAHOMY 733.00 OSTEOPOROSIS UNSPECIFIED 07/31/2012 IGNACIA CARRERO, NAHOMY 733.00 OSTEOPOROSIS UNSPECIFIED 07/31/2012 NAIN HARO DO 733.00 OSTEOPOROSIS UNSPECIFIED 07/31/2012 ESTRELLITA DOWELL, NAIN Martino 733.00 OSTEOPOROSIS UNSPECIFIED 07/31/2012 IGNACIA CARRERO, NAHOMY 733.00 OSTEOPOROSIS UNSPECIFIED 07/31/2012 SATYA DPM, CASIE 733.00 OSTEOPOROSIS UNSPECIFIED 07/31/2012 SATYA DPM, CASIE 733.00 OSTEOPOROSIS UNSPECIFIED 07/31/2012 IGNACIA CARRERO, NAHOMY 733.00 OSTEOPOROSIS UNSPECIFIED 07/31/2012 SATYA DPM, CASIE 733.00 OSTEOPOROSIS UNSPECIFIED 07/31/2012 IGNACIA CARRERO, NAHOMY 733.00 OSTEOPOROSIS UNSPECIFIED 10/28/2012 DAVID CARRERO, ARUN Geronimo Ot 996.1 MALFUNC VASC DEVICE/JOAQUÍN 10/28/2012 DAVID CARRERO, ARUN Geronimo Ot V58.61 ANTICOAGULANTS,LT,CURRENT USE 10/28/2012 ARUN HERNANDEZ MD Ot V58.69 OTH MED,LT,CURRENT USE 11/12/2012 Ot 345.90 EPILEPSY UNSPEC W/O MENTION INTRACTABLE 11/12/2012 Ot 434.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 11/12/2012 Ot 345.90 EPILEPSY UNSPEC W/O MENTION INTRACTABLE 11/12/2012 Ot 434.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 01/10/2013 NAHOMY BETH MD Ot 311 DEPRESSIVE DISORDER NEC 01/10/2013 NAHOMY BETH MD Ot 345.90 EPILEPSY UNSPEC W/O MENTION INTRACTABLE 01/10/2013 NAHOMY BETH MD Ot 401.9 HYPERTENSION NOS 01/10/2013 NAHOMY BETH MD Ot 414.00 CORON ATHEROSCLER NOS TYPE VESSEL, NATIV 01/10/2013 NAHOMY BETH MD Ot 433.10 CAROTID ARTERY OCCLUSION W O CEREBRAL IN 01/10/2013 NAHOMY BETH MD Ot 438.20 LATE EFF-CEREBR DIS,HEMIPLEGIA AFFECTING 01/10/2013 NAHOMY BETH MD Ot 786.59 CHEST PAIN NEC 01/10/2013 NAHOMY BETH MD Ot V45.81 AORTOCORONARY BYPASS 01/10/2013 NAHOMY BETH MD Ot V58.61 ANTICOAGULANTS,LT,CURRENT USE 01/31/2013 JUAN CARRERO, DEEPTI A Ot 920 CONTUSION FACE/SCALP/NCK 01/31/2013 ATIYA MARTINEZ MDNT A Ot 924.11 CONTUSION OF KNEE 01/31/2013 JUAN CARRERO DEEPTI A Ot 959.01 HEAD INJURY, NOS 01/31/2013 ATIYA MARTINEZ MDNT A Ot E000.8 OTHER EXTERNAL CAUSE STATUS 01/31/2013 ATIYA MARTINEZ MDNT A Ot E849.0 ACCIDENT IN HOME 01/31/2013 ATIYA MARTINEZ MDNT A Ot E884.3 FALL FROM WHEELCHAIR 02/03/2013 ATIYA MARTINEZ MDNT A Ot 790.92 COAGULATION PROFILE, ABNORMAL 02/03/2013 DEEPTI MARTINEZ MD A Ot 920 CONTUSION FACE/SCALP/NCK 02/03/2013 ATIYA MARTINEZ MDNT A Ot 959.09 INJURY OF FACE AND NECK 02/03/2013 DEEPTI MARTINEZ MD A Ot E000.8 OTHER EXTERNAL CAUSE STATUS 02/03/2013 DEEPTI MARTINEZ MD A Ot E849.0 ACCIDENT IN HOME 02/03/2013 DEEPTI MARTINEZ MD A Ot E884.3 FALL FROM WHEELCHAIR 02/03/2013 DEEPTI MARTINEZ MD A Ot V58.61 ANTICOAGULANTS,LT,CURRENT USE 02/05/2013 959.01 OTHER AND UNSPECIFIED INJURY TO HEAD 02/05/2013 959.01 OTHER AND UNSPECIFIED INJURY TO HEAD 02/05/2013 NAHOMY BETH MD 959.01 OTHER AND UNSPECIFIED INJURY TO HEAD 02/05/2013 NAHOMY BETH MD 959.01 OTHER AND UNSPECIFIED INJURY TO HEAD 02/05/2013 NAHOMY BETH MD 959.01 OTHER AND UNSPECIFIED INJURY TO HEAD 02/05/2013 NAHOMY BETH MD 959.01 OTHER AND UNSPECIFIED INJURY TO HEAD 02/05/2013 NAIN HARO DO 959.01 OTHER AND UNSPECIFIED INJURY TO HEAD 02/05/2013 NAIN HARO DO 959.01 OTHER AND UNSPECIFIED INJURY TO HEAD 02/05/2013 NAHOMY BETH MD 959.01 OTHER AND UNSPECIFIED INJURY TO HEAD 02/05/2013 SATYA DPJuanpablo, CASEI 959.01 OTHER AND UNSPECIFIED INJURY TO HEAD 02/05/2013 SATYA CASIE BRANTLEY 959.01 OTHER AND UNSPECIFIED INJURY TO HEAD 02/05/2013 NAHOMY BETH MD 959.01 OTHER AND UNSPECIFIED INJURY TO HEAD 02/05/2013 SATYA CASIE BRANTLEY 959.01 OTHER AND UNSPECIFIED INJURY TO HEAD 02/05/2013 NAHOMY BETH MD 959.01 OTHER AND UNSPECIFIED INJURY TO HEAD 02/08/2013 NAHOMY BETH MD Ot 280.0 CHR BLOOD LOSS ANEMIA 02/08/2013 NAHOMY BETH MD Ot 300.00 ANXIETY STATE NOS 02/08/2013 NAHOMY BETH MD Ot 311 DEPRESSIVE DISORDER NEC 02/08/2013 NAHOMY BETH MD Ot 338.29 OTHER CHRONIC PAIN 02/08/2013 NAHOMY BETH MD Ot 345.90 EPILEPSY UNSPEC W/O MENTION INTRACTABLE 02/08/2013 NAHOMY BETH MD Ot 403.90 HYPTNSV CHR KID DIS, UNSPEC, W CHR KD ST 02/08/2013 NAHOMY BETH MD Ot 438.20 LATE EFF-CEREBR DIS,HEMIPLEGIA AFFECTING 02/08/2013 NAHOMY BETH MD Ot 459.89 CIRCULATORY DISEASE NEC 02/08/2013 NAHOMY BETH MD Ot 585.9 CHRONIC KIDNEY DISEASE, UNSPECIFIED 02/08/2013 NAHOMY BETH MD Ot 728.2 MUSC DISUSE ATROPHY NEC 02/08/2013 NAHOMY BETH MD Ot 781.0 ABN INVOLUN MOVEMENT NEC 02/08/2013 NAHOMY BETH MD Ot 785.0 TACHYCARDIA NOS 02/08/2013 NAHOMY BETH MD Ot 790.92 COAGULATION PROFILE, ABNORMAL 02/08/2013 NAHOMY BETH MD Ot V15.88 HISTORY OF FALL 02/08/2013 NAHOMY BETH MD Ot V58.69 OTH MED,LT,CURRENT USE 03/06/2013 NINO CARRERO, NICK Gonzalez Ot 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 03/06/2013 NICK ONEILL MD Ot V12.51 HX-VENOUS THROMBOSIS EMBOLISM 03/11/2013 MAYELIN ETIENNE MD Ot 459.81 VENOUS INSUFFICIENCY NOS 03/11/2013 MAYELIN ETIENNE MD Ot V58.81 FIT/ADJ VASCULAR CATHETER 06/16/2013 MAYELIN ETIENNE MD Ot 459.81 VENOUS INSUFFICIENCY NOS 07/24/2013 KRISTY WALDRON MD Ot 345.90 EPILEPSY UNSPEC W/O MENTION INTRACTABLE 07/24/2013 KRISTY WALDRON MD Ot V58.61 ANTICOAGULANTS,LT,CURRENT USE 07/24/2013 KRISTY WALDRON MD, Ot V58.69 OTH MED,LT,CURRENT USE 08/27/2013 NAHOMY BETH MD 735.4 OTHER HAMMER TOE (ACQUIRED) 08/27/2013 NAHOMY BETH MD 735.4 OTHER HAMMER TOE (ACQUIRED) 08/27/2013 NAIN HARO DO 735.4 OTHER HAMMER TOE (ACQUIRED) 08/27/2013 NAIN HARO DO 735.4 OTHER HAMMER TOE (ACQUIRED) 08/27/2013 NAHOMY BETH MD 735.4 OTHER HAMMER TOE (ACQUIRED) 08/27/2013 SATYA DPCASIE Geronimo 735.4 OTHER HAMMER TOE (ACQUIRED) 08/27/2013 SATYA DPCASIE Geronimo 735.4 OTHER HAMMER TOE (ACQUIRED) 08/27/2013 NAHOMY BETH MD 735.4 OTHER HAMMER TOE (ACQUIRED) 08/27/2013 CASIE ARRIAGA DPM 735.4 OTHER HAMMER TOE (ACQUIRED) 08/27/2013 NAHOMY BETH MD 735.4 OTHER HAMMER TOE (ACQUIRED) 10/21/2013 MAYELIN ETIENNE MD Ot 459.81 VENOUS INSUFFICIENCY NOS 10/29/2013 NAHOMY BETH MD 716.90 UNSPECIFIED ARTHROPATHY SITE UNSPECIFIED 10/29/2013 NAIN HARO DO 716.90 UNSPECIFIED ARTHROPATHY SITE UNSPECIFIED 10/29/2013 NAIN HARO DO 716.90 UNSPECIFIED ARTHROPATHY SITE UNSPECIFIED 10/29/2013 NAHOMY BETH MD 716.90 UNSPECIFIED ARTHROPATHY SITE UNSPECIFIED 10/29/2013 SATYA CASIE BRANTLEY 716.90 UNSPECIFIED ARTHROPATHY SITE UNSPECIFIED 10/29/2013 SATYA CASIE BRANTLEY 716.90 UNSPECIFIED ARTHROPATHY SITE UNSPECIFIED 10/29/2013 NAHOMY BETH MD 716.90 UNSPECIFIED ARTHROPATHY SITE UNSPECIFIED 10/29/2013 SATYA DPMCASIE 716.90 UNSPECIFIED ARTHROPATHY SITE UNSPECIFIED 10/29/2013 IGNACIA CARRERO, NAHOMY 716.90 UNSPECIFIED ARTHROPATHY SITE UNSPECIFIED 12/16/2013 KRISTY WALDRON MD Ot 272.0 PURE HYPERCHOLESTEROLEM 12/16/2013 KRISTY WALDRON MD Ot 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, UNSPECIFIED, 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 12/16/2013 KRISTY WALDRON MD Ot 300.00 ANXIETY STATE NOS 12/16/2013 KRISTY WALDRON MD Ot 345.90 EPILEPSY UNSPEC W/O MENTION INTRACTABLE 12/16/2013 KRISTY WALDRON MD Ot 346.90 MIGRAINE UNSPECIFIED W/O INTRACT MGRN W/ 12/16/2013 KRISTY WALDRON MD Ot 401.9 HYPERTENSION NOS 12/16/2013 KRISTY WALDRON MD Ot 412 OLD MYOCARDIAL INFARCT 12/16/2013 KRISTY WALDRON MD Ot 438.89 OTH LATE EFFECT-CEREBROVASCULAR DISEASE 12/16/2013 KRISTY WALDRON MD Ot 518.0 PULMONARY COLLAPSE 12/16/2013 KRISTY WALDRON MD Ot 530.81 ESOPHAGEAL REFLUX 12/16/2013 KRISTY WALDRON MD Ot 564.09 OTHER CONSTIPATION 12/16/2013 KRISTY WALDRON MD Ot 596.54 NEUROGENIC BLADDER, NOT OTHERWISE SPECIF 12/16/2013 KRISTY WALDRON MD Ot 599.0 URIN TRACT INFECTION NOS 12/16/2013 KRISTY WALDRON MD Ot 715.90 OSTEOARTHROS NOS-UNSPEC 12/16/2013 KRISTY WALDRON MD Ot 728.87 MUSCLE WEAKNESS (GENERALIZED) 12/16/2013 KRISTY WALDRON MD Ot 733.00 OSTEOPOROSIS NOS 12/16/2013 KRISTY WALDRON MD Ot 780.97 ALTERED MENTAL STATUS 12/16/2013 KRISTY WALDRON MD Ot 782.3 EDEMA 12/16/2013 KRISTY WALDRON MD Ot 785.1 PALPITATIONS 12/16/2013 KRISTY WALDRON MD Ot 786.59 CHEST PAIN NEC 12/16/2013 CHIVO CARRERO, KRISTY Kennedy Ot V12.51 HX-VENOUS THROMBOSIS EMBOLISM 12/16/2013 KRISTY WALDRON MD Ot V43.3 HEART VALVE REPLAC NEC 12/16/2013 KRISTY WALDRON MD Ot V58.61 ANTICOAGULANTS,LT,CURRENT USE 12/16/2013 KRISTY WALDRON MD Ot V58.69 OTH MED,LT,CURRENT USE 01/01/2014 HARO DO, NAIN K 826.0 FX TOE(S) 01/01/2014 HARO DO, NAIN K 826.0 FX TOE(S) 01/01/2014 NAHOMY BETH MD 826.0 FX TOE(S) 01/01/2014 SATYA DPM, CASIE 826.0 FX TOE(S) 01/01/2014 SATYA DPM, CASIE 826.0 FX TOE(S) 01/01/2014 NAHOMY BETH MD 826.0 FX TOE(S) 01/01/2014 SATYA DPM, CASIE 826.0 FX TOE(S) 01/01/2014 NAHOMY BETH MD 826.0 FX TOE(S) 01/21/2014 JAIMIE CARRERO, MAYELIN Geronimo Ot 459.81 VENOUS INSUFFICIENCY NOS 02/25/2014 NION CARRERO, NICK Gonzalez Ot 285.9 ANEMIA NOS 02/25/2014 NINO CRARERO, NICK Gonzalez Ot 562.10 DIVERTICULOSIS COLON (W/O MENT OF HEMORR 02/25/2014 NICK ONEILL MD Ot 578.9 GASTROINTEST HEMORR NOS 02/25/2014 NINO CARRERO, NICK Gonzalez Ot 787.91 DIARRHEA 02/25/2014 NICK ONEILL MD Ot V16.0 FAMILY HX-GI MALIGNANCY 03/04/2014 NAHOMY BETH MD 724.5 BACKACHE UNSPECIFIED 03/04/2014 SATYA DPM, CASIE 724.5 BACKACHE UNSPECIFIED 03/04/2014 SATYA DPM, CASIE 724.5 BACKACHE UNSPECIFIED 03/04/2014 NAHOMY BETH MD 724.5 BACKACHE UNSPECIFIED 03/04/2014 SATYA DPM, CASIE 724.5 BACKACHE UNSPECIFIED 03/04/2014 NAHOMY BETH MD 724.5 BACKACHE UNSPECIFIED 04/29/2014 IGNACIA CARRERO, NAHOMY Moody Ot 459.81 VENOUS INSUFFICIENCY NOS 05/07/2014 IGNACIA CARRERO, NAHOMY Moody Ot 459.81 05/07/2014 IGNACIA CARRERO, NAHOMY Moody Ot 459.81 05/10/2014 IGNACIA CARRERO, NAHOMY Moody Ot 459.81 05/10/2014 IGNACIA CARRERO, NAHOMY Moody Ot 459.81 05/14/2014 SATYA DPM, CASIE 110.1 ONYCHOMYCOSIS 05/14/2014 IGNACIA CARRERO, NAHOMY 110.1 ONYCHOMYCOSIS 05/14/2014 SATYA DPM, CASIE 110.1 ONYCHOMYCOSIS 05/14/2014 IGNACIA CARRERO, NAHOMY 110.1 ONYCHOMYCOSIS 05/28/2014 NAHOMY BETH MD Ot 459.81 06/10/2014 VICKI CARRERO FACC, ALI FACP CCDS Ot 433.10 06/11/2014 NAHOMY BETH MD Ot 459.81 06/14/2014 VICKI CARRERO FACC, ALI FACP CCDS Ot 785.1 06/14/2014 VICKI CARRERO FACC, ALI FACP CCDS Ot 786.50 06/14/2014 VICKI CARRERO FACC, ALI FACP CCDS Ot 272.4 06/14/2014 VICKI CARRERO FACC, ALI FACP CCDS Ot 342.90 06/14/2014 VICKI CARRERO FACC, ALI FACP CCDS Ot 403.90 06/14/2014 VICKI CARRERO FACC, ALI FACP CCDS Ot 585.2 06/14/2014 VICKI CARRERO FACC, ALI FACP CCDS Ot 785.1 06/14/2014 VICKI CARRERO FACC, ALI FACP CCDS Ot 786.50 06/14/2014 VICKI CARRERO FACC, ALI FACP CCDS Ot V58.61 06/14/2014 VICKI CARRERO FACC, ALI FACP CCDS Ot 780.4 06/14/2014 VICKI CARRERO FACC, ALI FACP CCDS Ot 780.79 06/14/2014 VICKI CARRERO FACC, ALI FACP CCDS Ot 785.1 06/14/2014 VICKI LEBRONC, ALI FACP CCDS Ot V58.61 06/14/2014 VICKI CARRERO FACC, ALI FACP CCDS Ot V58.69 06/15/2014 NAHOMY BETH MD Ot 459.81 06/15/2014 NAHOMY BETH MD Ot 459.81 06/21/2014 VICKI CARRERO FACC, ALI FACP CCDS Ot 785.1 06/21/2014 VICKI CARRERO FACC, ALI FACP CCDS Ot 786.50 06/25/2014 NAHOMY BETH MD Ot 459.81 06/29/2014 VICKI CARRERO FACC, ALI FACP CCDS Ot 785.1 PALPITATIONS 06/29/2014 VICKI CARRERO FACC, ALI FACP CCDS Ot 786.50 CHEST PAIN NOS 06/29/2014 NAHOMY BETH MD Ot 459.81 06/30/2014 VICKI CARRERO FACC, ALI FACP CCDS Ot 780.4 06/30/2014 VICKI CARRERO FACC, ALI FACP CCDS Ot 780.79 06/30/2014 VICKI CARRERO FACC, ALI FACP CCDS Ot 785.1 06/30/2014 VICKI CRARERO FACC, ALI FACP CCDS Ot V58.61 06/30/2014 VICKI CARRERO FACC, ALI FACP CCDS Ot V58.69 07/02/2014 SATYA BRANTLEY, CASIE 735.4 HAMMER TOE (ACQUIRED) 07/02/2014 NAHOMY BETH MD 735.4 HAMMER TOE (ACQUIRED) 07/07/2014 IGNACIA CARRERO, NAHOMY V70.0 ROUTINE GENERAL MEDICAL EXAMINATION AT A HEALTH CARE FACILITY 07/09/2014 NAHOMY BETH MD Ot 459.81 07/13/2014 VICKI CARRERO FACC, ALI FACP CCDS Ot 433.10 07/13/2014 VICKI CARRERO FACC, ALI FACP CCDS Ot 272.4 07/13/2014 VICKI CARRERO FACC, ALI FACP CCDS Ot 342.90 07/13/2014 VICKI LEBRONC, ALI FACP CCDS Ot 403.90 07/13/2014 VICKI CARRERO FACC, ALI FACP CCDS Ot 585.2 07/13/2014 VICKI LEBRONC, ALI FACP CCDS Ot 785.1 07/13/2014 VICKI LEBRONC, ALI FACP CCDS Ot 786.50 07/13/2014 VICKI CARRERO [facility], ALI [facility] CCDS Ot V58.61 07/21/2014 SATYA DPM, CASIE Q Ot 735.4 07/21/2014 SATYA DPM, CASIE Q Ot V72.63 07/21/2014 SATYA DPM, CASIE Q Ot V74.8 07/23/2014 IGNACIA CARRERO, NAHOMY Moody Ot 459.81 08/03/2014 SATYA DPM, CASIE Q Ot 735.4 08/03/2014 SATYA DPM, CASIE Q Ot V72.63 08/03/2014 SATYA DPM, CASIE Q Ot V74.8 08/05/2014 IGNACIA CARRERO, NAHOMY Moody Ot 459.81 VENOUS INSUFFICIENCY NOS 08/12/2014 SATYA DPM, CASIE Q Ot 735.4 08/12/2014 SATYA DPM, CASIE Q Ot V72.63 08/12/2014 SATYA DPM, CASIE Q Ot V74.8 08/13/2014 IGNACIA CARRERO, NAHOMY Moody Ot 459.81 08/13/2014 IGNACIA CARRERO, NAHOMY Moody Ot 459.81 08/13/2014 IGNACIA CARRERO, NAHOMY Moody Ot 459.81 08/13/2014 IGNACIA CARRERO, NAHOMY Moody Ot 459.81 08/16/2014 IGNACIA CARRERO, NAHOMY Moody Ot 459.81 08/16/2014 IGNACIA CARRERO, NAHOMY Moody Ot 459.81 09/24/2014 IGNACIA CARRERO, NAHOMY Moody Ot 459.81 09/30/2014 IGNACIA CARRERO, NAHOMY Moody Ot 459.81 10/08/2014 IGNACIA CARRERO, NAHOMY Moody Ot 459.81 10/22/2014 INGACIA CARRERO, NAHOMY Moody Ot 459.81 11/05/2014 IGNACIA CARRERO, NAHOMY Moody Ot 459.81 11/11/2014 IGNACIA CARRERO, NAHOMY Moody Ot 459.81 VENOUS INSUFFICIENCY NOS 11/19/2014 IGNACIA CARRERO, NAHOMY Moody Ot 459.81 11/19/2014 IGNACIA CARRERO, NAHOMY Moody Ot 459.81 11/19/2014 IGNACIA CARRERO, NAHOMY Moody Ot 459.81 11/19/2014 IGNACIA CARRERO, NAHOMY F Ot 459.81 11/22/2014 IGNACIA CARRERO, NAHOMY F Ot 459.81 11/22/2014 IGNACIA CARRERO, NAHOMY F Ot 459.81 12/03/2014 IGNACIA CARRERO, NAHOMY F Ot 459.81 12/15/2014 IGNACIA CARRERO, NAHOMY F Ot 459.81 12/17/2014 IGNACIA CARRERO, NAHOMY F Ot 459.81 12/28/2014 IGNACIA CARRERO, NAHOMY F Ot 459.81 12/31/2014 IGNACIA CARRERO, NAHOMY F Ot 459.81 01/14/2015 IGNACIA CARRERO, NAHOMY F Ot 459.81 01/28/2015 IGNACIA CARRERO, NAHOMY F Ot 459.81 02/11/2015 IGNACIA CARRERO, NAHOMY F Ot 459.81 02/17/2015 IGNAICA CARRERO, NAHOMY F Ot 459.81 VENOUS INSUFFICIENCY NOS 03/01/2015 IGNACIA CARRERO, NAHOMY F Ot 459.81 03/11/2015 IGNACIA CARRERO, NAHOMY F Ot 459.81 03/18/2015 ROCIO FIELD BALE PILER Ot 272.4 03/23/2015 IGNACIA CARRERO, NAHOMY F Ot 459.81 VENOUS INSUFFICIENCY NOS 03/25/2015 IGNACIA CARRERO, NAHOMY F Ot 459.81 03/25/2015 IGNACIA CARRERO, NAHOMY F Ot 459.81 03/25/2015 IGNACIA CARRERO, NAHOMY F Ot 459.81 03/28/2015 ROCIO FIELD BALE PILER Ot 272.4 04/08/2015 IGNACIA CARRERO, NAHOMY F Ot I87.2 04/22/2015 IGNACIA CARRERO, NAHOMY F Ot I87.2 04/25/2015 IGNACIA CARRERO, NAHOMY F Ot R10.9 04/25/2015 IGNACIA CARRERO, NAHOMY F Ot R11.10 05/06/2015 IGNACIA CARRERO, NAHOMY F Ot I87.2 05/16/2015 IGNACIA CARRERO, NAHOMY F Ot R10.9 05/16/2015 IGNACIA CARRERO, NAHOMY F Ot R11.10 05/23/2015 IGNACIA CARRERO, NAHOMY F Ot I87.2 05/26/2015 IGNACIA CARRERO, NAHOMY F Ot R10.9 05/26/2015 IGNACIA CARRERO, NAHOMY F Ot R11.10 06/01/2015 IGNACIA CARRERO, NAHOMY Moody Ot I87.2 06/03/2015 Ot 729.5 06/03/2015 Ot 729.81 06/03/2015 Ot 599.70 06/03/2015 Ot 753.10 06/03/2015 Ot 729.5 06/03/2015 Ot 959.7 06/03/2015 Ot E000.8 06/03/2015 Ot E849.0 06/03/2015 Ot E928.9 06/03/2015 Ot 553.20 06/03/2015 Ot 789.00 06/03/2015 Ot 599.70 06/03/2015 Ot 286.5 06/03/2015 Ot 958.3 06/03/2015 Ot V72.63 06/03/2015 Ot V74.8 06/03/2015 Ot 958.3 06/03/2015 Ot V64.3 06/03/2015 Ot 414.00 06/03/2015 Ot 414.01 06/03/2015 Ot 585.9 06/03/2015 Ot 789.09 06/03/2015 Ot 585.9 06/03/2015 Ot 787.3 06/03/2015 Ot 789.00 06/03/2015 Ot 429.3 06/03/2015 Ot V12.51 06/03/2015 DAVID CARRERO, ARUN Geronimo Ot 786.05 06/03/2015 DAVID CARRERO, ARUN Geronimo Ot 791.9 06/03/2015 DAVID CARRERO, ARUN Geronimo Ot V58.69 06/03/2015 DAVID CARRERO, ARUN Geronimo Ot V58.81 06/03/2015 DAVID CARRERO, ARUN Geronimo Ot V72.63 06/03/2015 DAVID CARRERO, ARUN Geronimo Ot V72.81 06/03/2015 DAVID CARRERO, ARUN Geronimo Ot V72.83 06/03/2015 DAVID CARRERO, ARUN Geronimo Ot V74.8 06/03/2015 LUCIANA MARTINEZ BALE PILER Ot 414.00 06/03/2015 LUCIANA MARTINEZ BALE PILER Ot 785.1 06/03/2015 NINO CARRERO, NICK Gonzalez Ot 459.81 06/03/2015 NINO CARRERO, NICK Gonzalez Ot 553.20 06/03/2015 NINO CARRERO, NICK S Ot V72.63 06/03/2015 NINO CARRERO, NICK S Ot V74.8 06/03/2015 VICKI CARRERO FACC, ALI FACP CCDS Ot 433.10 06/03/2015 EMIR ROCIO L BALE PILER Ot 433.10 06/03/2015 IGNACIA CARRERO, NAHOMY F Ot 585.9 06/03/2015 IGNACIA CARRERO, NAHOMY F Ot V58.69 06/03/2015 NINO CARRERO, NICK S Ot 996.74 06/03/2015 NINO CARRERO, NICK S Ot V58.61 06/03/2015 NINO CARRERO, NICK S Ot 459.81 06/03/2015 NINO CARRERO, NICK S Ot V72.84 06/03/2015 ZEESHAN CARRERO, KOREY A Ot 593.9 06/03/2015 EMIR ROCIO L BALE PILER Ot 272.4 06/03/2015 EMIR ROCIO L BALE PILER Ot 403.90 06/03/2015 EMIR ROCIO L BALE PILER Ot 434.91 06/03/2015 EMIR ROCIO L BALE PILER Ot 453.40 06/03/2015 EMIR ROCIO L BALE PILER Ot 585.2 06/03/2015 EMIR ROCIO L BALE PILER Ot V58.61 06/03/2015 NINO CARRERO, NICK S Ot V72.84 06/03/2015 NINO CARRERO, NICK S Ot 285.9 06/03/2015 VICKI CARRERO FACC, ALI FACP CCDS Ot 272.4 06/03/2015 VICKI CARRERO FACC, ALI FACP CCDS Ot 342.90 06/03/2015 VICKI CARRERO FACC, ALI FACP CCDS Ot 403.90 06/03/2015 VICKI CARRERO FACC, ALI FACP CCDS Ot 585.2 06/03/2015 VICKI CARRERO FACC, ALI FACP CCDS Ot 785.1 06/03/2015 VICKI CARRERO FACC, ALI FACP CCDS Ot 786.50 06/03/2015 VICKI LEBRONC, ALI FACP CCDS Ot V58.61 06/03/2015 VICKI CARRERO FACC, ALI FACP CCDS Ot 433.10 06/03/2015 VICKI CARRERO FACC, ALI FACP CCDS Ot 780.4 06/03/2015 VICKI CARRERO [facility], ALI FACP CCDS Ot 780.79 06/03/2015 VICKI CARRERO FAC, ALI FACP CCDS Ot 785.1 06/03/2015 VICKI CARRERO FAC, ALI FACP CCDS Ot V58.61 06/03/2015 VICKI CARRERO FAC, ALI FACP CCDS Ot V58.69 06/03/2015 VICKI CARRERO [facility] CCDS Ot 785.1 06/03/2015 VICKI CARRERO [facility] CCDS Ot 786.50 06/03/2015 SATYA DPM, CASIE Q Ot 735.4 06/03/2015 SATYA DPM, CASIE Q Ot V72.63 06/03/2015 SATYA DPM, CASIE Q Ot V74.8 06/03/2015 ROCIO FIELD BALE PILER Ot 272.4 06/03/2015 NAHOMY BETH MD Ot I87.2 06/03/2015 NAHOMY BETH MD Ot R10.9 06/03/2015 NAHOMY BETH MD Ot R11.10 06/03/2015 AROLDO JEANETTE Ot I69.954 [facility] 06/03/2015 JEANETTE KENDRICK DO Ot S80.11XA CONTUSION OF RIGHT LOWER LEG, INITIAL EN 06/03/2015 JEANETTE KENDRICK DO Ot S93.401A SPRAIN OF UNSPECIFIED LIGAMENT OF RIGHT 06/03/2015 JEANETTE KENDRICK DO Ot W05.0XXA FALL FROM NON-MOVING WHEELCHAIR, INITIAL 06/03/2015 JEANETTE KENDRICK DO Ot Y92.[address] IN [facility] NON-INSTITUT (PRIVATE 06/03/2015 JEANETTE KENDRICK DO Ot Y99.8 OTHER EXTERNAL CAUSE STATUS 06/03/2015 IGNACIA CARRERO, NAHOMY Moody Ot I87.2 06/16/2015 NAHOMY BETH MD Ot I87.2 06/20/2015 NAHOMY BETH MD Ot I87.2 06/23/2015 NAHOMY BETH MD Ot I87.2 VENOUS INSUFFICIENCY (CHRONIC) (PERIPHER 07/01/2015 NAHOMY BETH MD Ot I87.2 07/04/2015 IGNACIA CARRERO, NAHOMY F Ot I87.2 07/15/2015 IGNACIA CARRERO, NAHOMY F Ot I87.2 07/29/2015 IGNACIA CARRERO, NAHOMY F Ot I87.2 08/12/2015 IGNACIA CARRERO, NAHOMY F Ot I87.2 08/19/2015 IGNACIA CARRERO, NAHOMY Moody Ot I87.2 08/26/2015 IGNACIA CARRERO, NAHOMY Moody Ot I87.2 08/30/2015 IGNACIA CARRERO, NAHOMY Fransisco Ot I87.2 09/02/2015 JAY CARRERO, ALLISON Gonzalez Ot I69.998 OTHER SEQUELAE FOLLOWING UNSPECIFIED CER 09/02/2015 JAY CARRERO, ALLISON Gonzalez Ot R29.898 OTH SYMPTOMS AND SIGNS INVOLVING THE MUS 09/02/2015 JAY CARRERO, ALLISON Gonzalez Ot R79.1 ABNORMAL COAGULATION PROFILE 09/02/2015 JAY CARRERO, ALLISON Gonzalez Ot S09.90XA UNSPECIFIED INJURY OF HEAD, INITIAL ENCO 09/02/2015 JAY CARRERO, ALLISON Gonzalez Ot S80.02XA CONTUSION OF LEFT KNEE, INITIAL ENCOUNTE 09/02/2015 JAY CARRERO, ALLISON Gonzalez Ot W05.0XXA FALL FROM NON-MOVING WHEELCHAIR, INITIAL 09/02/2015 JAY CARRERO, ALLISON Gonzalez Ot Y92.009 [facility] PL[address] IN [facility] NON-INSTITUT (PRIVATE 09/02/2015 JAY CARRERO, ALLISON Gonzalez Ot Y99.8 OTHER EXTERNAL CAUSE STATUS 09/02/2015 JAY CARRERO, ALLISON Gonzalez Ot Z79.01 SENIOR CARE (CURRENT) USE OF ANTICOAGULANT 09/02/2015 JAY CARRERO, ALLISON Gonzalez Ot Z79.899 OTHER ATHLETIC SHOE DESIGNER (CURRENT) DRUG THERAPY 09/05/2015 JYA CARRERO, ALLISON Gonzalez Ot I69.998 09/05/2015 JAY CARRERO, ALLISON Gonzalez Ot R29.898 09/05/2015 JAY CARRERO, ALLISON Gonzalez Ot R79.1 09/05/2015 JAY CARRERO, ALLISON Gonzalez Ot S09.90XA 09/05/2015 JAY CARRERO, ALLISON Gonzalez Ot S80.02XA 09/05/2015 JAY CARRERO, ALLISON Gonzalez Ot W05.0XXA 09/05/2015 JAY CARRERO, ALLISON Gonzalez Ot Y92.009 09/05/2015 JAY CARRERO, ALLISON S Ot Y99.8 09/05/2015 JAY CARRERO, ALLISON S Ot Z79.01 09/05/2015 JAY CARRERO, ALLISON S Ot Z79.899 09/09/2015 IGNACIA CARRERO, NAHOMY Moody Ot I87.2 09/23/2015 NAHOMY BETH MD Ot I87.2 09/29/2015 NAHOMY BETH MD Ot I87.2 VENOUS INSUFFICIENCY (CHRONIC) (PERIPHER 10/05/2015 NAHOMY BETH MD Ot I87.2 10/07/2015 NAHOMY EBTH MD Ot I87.2 VENOUS INSUFFICIENCY (CHRONIC) (PERIPHER 10/07/2015 NAHOMY BETH MD, Ot I87.2 VENOUS INSUFFICIENCY (CHRONIC) (PERIPHER 10/07/2015 NAHOMY BETH MD Ot I87.2 VENOUS INSUFFICIENCY (CHRONIC) (PERIPHER 10/07/2015 NAHOMY BETH MD Ot I87.2 VENOUS INSUFFICIENCY (CHRONIC) (PERIPHER 10/10/2015 NAHOMY BETH MD Ot I87.2 VENOUS INSUFFICIENCY (CHRONIC) (PERIPHER 10/21/2015 NAHOMY BETH MD Ot I87.2 VENOUS INSUFFICIENCY (CHRONIC) (PERIPHER 11/04/2015 NAHOMY BETH MD Ot I87.2 VENOUS INSUFFICIENCY (CHRONIC) (PERIPHER 11/14/2015 NAHOMY BETH MD Ot I87.2 VENOUS INSUFFICIENCY (CHRONIC) (PERIPHER 11/18/2015 ZEESHAN CARRERO, KOREY Bernard Ot N19 UNSPECIFIED KIDNEY FAILURE 11/18/2015 NAHOMY BETH MD Ot I87.2 VENOUS INSUFFICIENCY (CHRONIC) (PERIPHER 11/18/2015 ZEESHAN CARRERO, KOREY A Ot N19 UNSPECIFIED KIDNEY FAILURE 12/02/2015 NAHOMY BETH MD Ot I87.2 VENOUS INSUFFICIENCY (CHRONIC) (PERIPHER 12/05/2015 NAHOMY BETH MD Ot I87.2 VENOUS INSUFFICIENCY (CHRONIC) (PERIPHER 12/13/2015 ZEESHAN CARRERO, KOREY A Ot N19 UNSPECIFIED KIDNEY FAILURE 12/16/2015 NAHOMY BETH MD Ot I87.2 VENOUS INSUFFICIENCY (CHRONIC) (PERIPHER 12/16/2015 ZEESHAN CARRERO, KOREY A Ot N19 UNSPECIFIED KIDNEY FAILURE 12/23/2015 Ot 783.1 12/30/2015 NAHOMY BETH MD Ot I87.2 VENOUS INSUFFICIENCY (CHRONIC) (PERIPHER 01/05/2016 NAHOMY BETH MD Ot I87.2 VENOUS INSUFFICIENCY (CHRONIC) (PERIPHER 01/13/2016 NAHOMY BETH MD Ot I87.2 VENOUS INSUFFICIENCY (CHRONIC) (PERIPHER 01/16/2016 NAHOMY BETH MD Ot I87.2 VENOUS INSUFFICIENCY (CHRONIC) (PERIPHER 01/27/2016 NAHOMY BETH MD Ot I87.2 VENOUS INSUFFICIENCY (CHRONIC) (PERIPHER 02/10/2016 NAHOMY BETH MD Ot I87.2 VENOUS INSUFFICIENCY (CHRONIC) (PERIPHER 02/14/2016 NAHOMY BETH MD Ot I87.2 VENOUS INSUFFICIENCY (CHRONIC) (PERIPHER 02/24/2016 NAHOMY BETH MD Ot I87.2 VENOUS INSUFFICIENCY (CHRONIC) (PERIPHER 2016 NAHOMY BETH MD Ot I87.2 VENOUS INSUFFICIENCY (CHRONIC) (PERIPHER 03/09/2016 NAHOMY BETH MD Ot I87.2 VENOUS INSUFFICIENCY (CHRONIC) (PERIPHER 03/22/2016 NAHOMY BETH MD Ot I87.2 VENOUS INSUFFICIENCY (CHRONIC) (PERIPHER 03/23/2016 NAHOMY BETH MD Ot I87.2 VENOUS INSUFFICIENCY (CHRONIC) (PERIPHER 04/06/2016 NAHOMY BETH MD Ot I87.2 VENOUS INSUFFICIENCY (CHRONIC) (PERIPHER 04/12/2016 NAHOMY BETH MD Ot I87.2 VENOUS INSUFFICIENCY (CHRONIC) (PERIPHER 04/20/2016 NAHOMY BETH MD Ot I87.2 VENOUS INSUFFICIENCY (CHRONIC) (PERIPHER 04/20/2016 NAHOMY BETH MD Ot I87.2 VENOUS INSUFFICIENCY (CHRONIC) (PERIPHER 04/20/2016 NAHOMY BETH MD Ot I87.2 VENOUS INSUFFICIENCY (CHRONIC) (PERIPHER 04/23/2016 NAHOMY BETH MD Ot I87.2 VENOUS INSUFFICIENCY (CHRONIC) (PERIPHER 05/04/2016 NAHOMY BETH MD Ot I87.2 VENOUS INSUFFICIENCY (CHRONIC) (PERIPHER 05/04/2016 NAHOMY BETH MD Ot Z79.01 SENIOR CARE (CURRENT) USE OF ANTICOAGULANT 05/15/2016 NAHOMY BETH MD Ot I87.2 VENOUS INSUFFICIENCY (CHRONIC) (PERIPHER 05/15/2016 NAHOMY BETH MD Ot 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 05/16/2016 NAHOMY BETH MD Ot I87.2 VENOUS INSUFFICIENCY (CHRONIC) (PERIPHER 05/16/2016 NAHOMY BETH MD Ot 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 05/28/2016 NAHOMY BETH MD Ot I87.2 VENOUS INSUFFICIENCY (CHRONIC) (PERIPHER 05/28/2016 NAHOMY BETH MD Ot Z79.01 SENIOR CARE (CURRENT) USE OF ANTICOAGULANT 07/19/2016 NAHOMY BETH MD Ot I87.2 VENOUS INSUFFICIENCY (CHRONIC) (PERIPHER 07/19/2016 NAHOMY BETH MD Ot Z79.01 SENIOR CARE (CURRENT) USE OF ANTICOAGULANT 08/22/2016 Ot 345.90 EPILEPSY UNSPEC W/O MENTION INTRACTABLE 08/22/2016 Ot 434.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 08/23/2016 NAHOMY BETH MD Ot Z12.31 ENCNTR SCREEN MAMMOGRAM FOR MALIGNANT NE 08/24/2016 NAHOMY BETH MD Ot Z12.31 ENCNTR SCREEN MAMMOGRAM FOR MALIGNANT NE 08/24/2016 NAHOMY BETH MD Ot Z12.31 ENCNTR SCREEN MAMMOGRAM FOR MALIGNANT NE 08/24/2016 NAHOMY BETH MD Ot Z12.31 ENCNTR SCREEN MAMMOGRAM FOR MALIGNANT NE 09/13/2016 NAHOMY BETH MD Ot Z12.31 ENCNTR SCREEN MAMMOGRAM FOR MALIGNANT NE 09/14/2016 NAHOMY BETH MD Ot 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 PECTO 09/14/2016 NAHOMY BETH MD Ot 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 PECTO 09/15/2016 NAHOMY BETH MD Ot 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 PECTO 09/20/2016 NAHOMY BETH MD Ot 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 PECTO 09/20/2016 NAHOMY BETH MD Ot Z12.31 ENCNTR SCREEN MAMMOGRAM FOR MALIGNANT NE 10/05/2016 NAHOMY BETH MD Ot 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 PECTO 10/16/2016 IGNACIA CARRERO, NAHOMY Moody Ot 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 PECTO 10/22/2016 Ot 783.1 10/22/2016 Ot 345.90 EPILEPSY UNSPEC W/O MENTION INTRACTABLE 10/22/2016 Ot 434.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 11/29/2016 Ot 958.3 POSTTRAUM WND INFEC NEC 11/29/2016 Ot V72.63 PRE-PROCEDURAL LABORATORY EXAMINATION 11/29/2016 Ot V74.8 SCREEN-BACTERIAL DIS NEC 11/29/2016 Ot 958.3 POSTTRAUM WND INFEC NEC 11/29/2016 Ot V64.3 NO PROC FOR REASONS NEC 11/29/2016 Ot 414.00 CORON ATHEROSCLER NOS TYPE VESSEL, NATIV 11/29/2016 Ot 414.01 CORONARY ATHEROSCLEROSIS OF [place] CORON 11/29/2016 Ot 585.9 CHRONIC KIDNEY DISEASE, UNSPECIFIED 11/29/2016 Ot 789.09 ABDOMINAL PAIN, OTHER SPECIFIED SITE 11/29/2016 Ot 585.9 CHRONIC KIDNEY DISEASE, UNSPECIFIED 11/29/2016 Ot 787.3 FLATUL/ERUCTAT/GAS PAIN 11/29/2016 Ot 789.00 ABDOMINAL PAIN, UNSPECIFIED SITE 11/29/2016 Ot 429.3 CARDIOMEGALY 11/29/2016 Ot V12.51 HX-VENOUS THROMBOSIS EMBOLISM 11/29/2016 DAVID CARRERO, ARUN Geronimo Ot 786.05 SHORTNESS OF BREATH 11/29/2016 DAVID CARRERO, ARUN Geronimo Ot 791.9 ABN URINE FINDINGS NEC 11/29/2016 ARUN HERNANDEZ MD Ot V58.69 OT MED,LT,CURRENT USE 11/29/2016 ARUN HERNANDEZ MD Ot V58.81 FIT/ADJ VASCULAR CATHETER 11/29/2016 ARUN HERNANDEZ MD Ot V72.63 PRE-PROCEDURAL LABORATORY EXAMINATION 11/29/2016 ARUN HERNANDEZ MD Ot V72.81 [id number] CARDIOVASCULAR 11/29/2016 ARUN HERNANDEZ MD Ot V72.83 EXAM PRE-OPERATIVE NEC 11/29/2016 ARUN HERNANDEZ MD Ot V74.8 SCREEN-BACTERIAL DIS NEC 11/29/2016 LUCIANA MARTINEZ Ot 414.00 CORON ATHEROSCLER NOS TYPE VESSEL, NATIV 11/29/2016 LUCIANA MARTINEZ BALE PILER Ot 785.1 PALPITATIONS 11/29/2016 NICK ONEILL MD Ot 459.81 VENOUS INSUFFICIENCY NOS 11/29/2016 NICK ONEILL MD Ot 553.20 VENTRAL HERNIA NOS 11/29/2016 NICK ONEILL MD Ot V72.63 PRE-PROCEDURAL LABORATORY EXAMINATION 11/29/2016 NICK ONEILL MD Ot V74.8 SCREEN-BACTERIAL DIS NEC 11/29/2016 VICKI CARRERO FACC, YORDAN FACP CCDS Ot 433.10 CAROTID ARTERY OCCLUSION W O CEREBRAL IN 11/29/2016 ROCIO FIELD BALE PILER Ot 433.10 CAROTID ARTERY OCCLUSION W O CEREBRAL IN 11/29/2016 NAHOMY BETH MD Ot 585.9 CHRONIC KIDNEY DISEASE, UNSPECIFIED 11/29/2016 NAHOMY BETH MD Ot V58.69 OTH MED,LT,CURRENT USE 11/29/2016 NICK ONEILL MD Ot 996.74 OTH COMPL DUE TO OTH VASCULAR DEVICE, IMP 11/29/2016 NICK ONEILL MD Ot V58.61 ANTICOAGULANTS,LT,CURRENT USE 11/29/2016 NICK ONEILL MD Ot 459.81 VENOUS INSUFFICIENCY NOS 11/29/2016 NICK ONEILL MD Ot V72.84 EXAM PRE-OPERATIVE NOS 11/29/2016 ZEESHAN CARRERO, KOREY Bernard Ot 593.9 RENAL URETERAL DIS NOS 11/29/2016 ROCIO FIELD BALE PILER Ot 272.4 HYPERLIPIDEMIA NEC/NOS 11/29/2016 ROCIO FIELD BALE PILER Ot 403.90 HYPTNSV CHR KID DIS, UNSPEC, W CHR KD ST 11/29/2016 EMIR ROCIO L BALE PILER Ot 434.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 11/29/2016 ROCIO FIELD BALE PILER Ot 453.40 ACUTE VENOUS EMBOLISM THROMBOSIS UNSP 11/29/2016 ROCIO FIELD BALE PILER Ot 585.2 CHRONIC KIDNEY DISEASE, STAGE II (MILD) 11/29/2016 ROCIO FIELD BALE PILER Ot V58.61 ANTICOAGULANTS,LT,CURRENT USE 11/29/2016 NICK ONEILL MD Ot V72.84 EXAM PRE-OPERATIVE NOS 11/29/2016 NINO MD, NICK S Ot 285.9 ANEMIA NOS 11/29/2016 VICKI CARRERO FACC, ALI FACP CCDS Ot 272.4 HYPERLIPIDEMIA NEC/NOS 11/29/2016 VICKI CARRERO FACC, ALI FACP CCDS Ot 342.90 UNSPEC HEMIPLEGIA HEMIPARESIS UNSPEC S 11/29/2016 VICKI CARRERO FACMariaelena, ALI FACP CCDS Ot 403.90 HYPTNSV CHR KID DIS, UNSPEC, W CHR KD ST 11/29/2016 VICKI CARRERO FACC, ALI FACP CCDS Ot 585.2 CHRONIC KIDNEY DISEASE, STAGE II (MILD) 11/29/2016 VICKI LEBRONC, ALI FACP CCDS Ot 785.1 PALPITATIONS 11/29/2016 VICKI CARRERO FACC, ALI FACP CCDS Ot 786.50 CHEST PAIN NOS 11/29/2016 VICKI CARRERO FACC, ALI FACP CCDS Ot V58.61 ANTICOAGULANTS,LT,CURRENT USE 11/29/2016 VICKI CARRERO FACC, ALI FACP CCDS Ot 433.10 CAROTID ARTERY OCCLUSION W O CEREBRAL IN 11/29/2016 VICKI CARRERO FACC, ALI FACP CCDS Ot 780.4 DIZZINESS AND GIDDINESS 11/29/2016 VICKI CARRERO FACC, ALI FACP CCDS Ot 780.79 OTH MALAISE FATIGUE 11/29/2016 VICKI CARRERO FACC, ALI FACP CCDS Ot 785.1 PALPITATIONS 11/29/2016 VICKI CARRERO FACC, ALI FACP CCDS Ot V58.61 ANTICOAGULANTS,LT,CURRENT USE 11/29/2016 VICKI CARRERO FACC, ALI FACP CCDS Ot V58.69 OTH MED,LT,CURRENT USE 11/29/2016 VICKI CARRERO FACC, ALI FACP CCDS Ot 785.1 PALPITATIONS 11/29/2016 VICKI CARRERO FACC, ALI FACP CCDS Ot 786.50 CHEST PAIN NOS 11/29/2016 SATYA DPM, CASIE Q Ot 735.4 OTHER HAMMER TOE 11/29/2016 SATYA DPM, CASIE Q Ot V72.63 PRE-PROCEDURAL LABORATORY EXAMINATION 11/29/2016 SATYA DPM, CASIE Q Ot V74.8 SCREEN-BACTERIAL DIS NEC 11/29/2016 ROCIO FIELD BALE PILER Ot 272.4 HYPERLIPIDEMIA NEC/NOS 11/29/2016 IGNACIA CARRERO, NAHOMY Moody Ot R10.9 UNSPECIFIED ABDOMINAL PAIN 11/29/2016 NAHOMY BETH MD Ot R11.10 VOMITING, UNSPECIFIED 11/29/2016 KOREY BYERS MD Ot N19 UNSPECIFIED KIDNEY FAILURE 11/29/2016 NAHOMY BETH MD Ot I87.2 VENOUS INSUFFICIENCY (CHRONIC) (PERIPHER 11/29/2016 NAHOMY BETH MD Ot 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 11/29/2016 NAHOMY BETH MD Ot Z12.31 ENCNTR SCREEN MAMMOGRAM FOR MALIGNANT NE 11/29/2016 NAHOMY BETH MD Ot 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 PECTO 12/22/2016 Ot 783.1 12/27/2016 KOREY BYERS MD, Ot N28.9 DISORDER OF KIDNEY AND URETER, UNSPECIFI 01/01/2017 KOREY BYERS MD, Ot N28.9 DISORDER OF KIDNEY AND URETER, UNSPECIFI Procedures Code Description Performed By Performed On General S Jonathan Najera 05/20/2012 82634 INR (IN HOUSE) 61114 INR (IN HOUSE) 42946 BONE DENSITY, DEXA 06/01/2012 General S Gilbert Schultz 32532 ROUTINE VENIPUNCTURE 09/23/2012 10695 INR (IN HOUSE) 84871 BMP 09/23/2012 0554305 GFR CALC (RESULT ONLY) 09/23/2012 65397 DILANTIN 2012 OtolarynRoldan Lee 09/24/2012 78324 DEXA BONE DENSITY, AXIAL 12/02/2012 33767 INR (IN HOUSE) J3420 B12 VITAMIN INJECTION 12/02/2012 83828 THERAPUTIC INJ SQ/IM 12/02/2012 89576 INR (IN HOUSE) General S Nick Oneill 02/16/2013 13123 PT/INR 2013 Podiatry Casie Arriaga 08/27/2013 46886 XRAY FOOT LEFT COMP MIN 3 VIEWS 01/01/2014 57786 DEBRIDE NAIL 1-5 05/14/2014 Results Test Result Range PT panel in platelet poor plasma by coagulation assay - 01/27/16 13:00 Prothrombin time (PT) in platelet poor plasma by coagulation assay 21.8 s 12.2-14.7 INR in platelet poor plasma or blood by coagulation assay 1.9 0.8-1.4 Whole blood basic metabolic panel - 02/24/16 13:05 Serum or plasma sodium measurement (moles/volume) 138 mmol/ L 135-145 Serum or plasma potassium measurement (moles/volume) 3.5 mmol/L 3.6-5.0 Serum or plasma chloride measurement (moles/volume) 110 mmol /L 98-107 Carbon dioxide 21 mmol/L 21-32 Serum or plasma anion gap determination (moles/volume) 7 mmol/L 5-14 Serum or plasma urea nitrogen measurement (mass/volume) 14 mg/dL 7-18 Serum or plasma creatinine measurement (mass/volume) 0.95 mg /dL 0.60-1.30 Serum or plasma urea nitrogen/creatinine mass ratio 15 NRG Serum or plasma creatinine measurement with calculation of estimated glomerular filtration rate 59 NRG Serum or plasma glucose measurement (mass/volume) 133 mg/dL 70-105 Serum or plasma calcium measurement (mass/volume) 8.7 mg/dL 8.5-10.1 PT panel in platelet poor plasma by coagulation assay - 02/24/16 13:05 Prothrombin time (PT) in platelet poor plasma by coagulation assay 20.7 s 12.2-14.7 INR in platelet poor plasma or blood by coagulation assay 1.8 0.8-1.4 PT panel in platelet poor plasma by coagulation assay - 04/06/16 12:58 Prothrombin time (PT) in platelet poor plasma by coagulation assay 26.1 s 12.2-14.7 INR in platelet poor plasma or blood by coagulation assay 2.4 0.8-1.4 PT panel in platelet poor plasma by coagulation assay - 05/04/16 12:55 Prothrombin time (PT) in platelet poor plasma by coagulation assay 28.7 s 12.2-14.7 INR in platelet poor plasma or blood by coagulation assay 2.7 0.8-1.4 PT panel in platelet poor plasma by coagulation assay - 09/14/16 10:20 Prothrombin time (PT) in platelet poor plasma by coagulation assay 16.7 s 12.2-14.7 INR in platelet poor plasma or blood by coagulation assay 1.4 0.8-1.4 Encounters ACCT No. Visit Date/Time Discharge Status Pt. Type Provider Facility Loc./Unit Complaint [id number] 07/07/2014 16:42:00 07/07/2014 23: 59:59 BHAVANI Outpatient NAHOMY BETH MD [id number] 07/02/2014 09:57:00 07/02/2014 23: 59:59 CLS Outpatient CASIE ARRIAGA DPM [id number] 05/27/2014 15:44:00 05/27/2014 23: 59:59 BHAVANI Outpatient NAHOMY BETH MD [id number] 05/14/2014 09:51:00 05/14/2014 23: 59:59 CLS Outpatient CASIE ARRIAGA DPM [id number] 03/12/2014 09:45:00 03/12/2014 23: 59:59 CLS Outpatient CASIE ARRIAGA DPM [id number] 03/04/2014 09:43:00 03/04/2014 23: 59:59 NAHOMY Alvarado MD [id number] 01/01/2014 09:05:00 01/01/2014 23: 59:59 BHAVANI Outpatient NAIN HARO DO [id number] 01/01/2014 09:05:00 01/01/2014 23: 59:59 BHAVANI Outpatient NAIN HARO DO [id number] 10/29/2013 13:35:00 10/29/2013 23: 59:59 BHAVANI Outpatient NAHOMY BETH MD [id number] 08/27/2013 15:00:00 08/27/2013 23: 59:59 NAHOMY Alvarado MD [id number] 07/30/2013 15:19:00 07/30/2013 23: 59:59 BHAVANI Outpatient NAHOMY BETH MD [id number] 03/02/2013 13:56:00 03/02/2013 23: 59:59 BHAVANI Outpatient NAHOMY BETH MD [id number] 09/23/2012 11:45:00 09/23/2012 23: 59:59 BHAVANI Outpatient ANHOMY BETH MD [id number] 05/20/2012 09:24:00 05/20/2012 23: 59:59 [place] [id number] 04/15/2012 15:12:00 04/15/2012 23: 59:59 BHAVANI Outpatient NAIN HARO DO [id number] 02/09/2013 07:55:00 Document Registration [id number] 02/05/2013 14:58:00 Document Registration [id number] 12/02/2012 09:33:00 Document Registration [id number] 12/02/2012 09:33:00 Document Registration [id number] 09/23/2012 11:45:00 Document Registration [id number] 02/08/2017 05:55:00 2016 23:59:59 CLS Outpatient ALLISON BELLA MD [facility] PREOP RECTAL BLEEDING ANEMIA, VENTRAL HERNIA [id number] 12/03/2016 10:15:00 2016 23:59:59 CLS Outpatient KOREY BYERS MD [facility] RAD RENAL INSUFFICIENCY [id number] 09/14/2016 10:57:00 2016 23:59:59 CLS Outpatient NAHOMY BETH MD [facility] LABNPT I25.10, I25.810 [id number] 08/23/2016 11:47:00 2016 23:59:59 CLS Outpatient NAHOMY BETH MD [facility] RAD SCREENING [id number] 07/20/2016 00:09:00 2016 23:59:59 CLS Preadmit NAHOMY BETH MD [facility] POOR DAVID ACCESS [id number] 05/16/2016 12:41:00 2016 00:01:00 DIS Outpatient NAHOMY BETH MD [facility] POOR DAVID ACCESS [id number] 04/06/2016 12:35:00 2015 00:01:00 DIS Outpatient NAHOMY BETH MD [facility] PO[place] DAVID ACCESS [id number] 12/30/2015 12:35:00 2015 00:01:00 DIS Outpatient NAHOMY BETH MD [facility] POOR DVAID ACCESS [id number] 11/17/2015 11:14:00 2015 23:59:59 CLS Outpatient KOREY BYERS MD [facility] RAD RENAL FAILURE [id number] 09/23/2015 12:46:00 2015 00:01:00 DIS Outpatient NAHOMY BETH MD [facility] POOR DAVID ACCESS [id number] 09/02/2015 15:34:00 2015 19:28:00 DIS Emergency ALLISON THOMPSON MD S [facility] ER L LEG PAIN [id number] 06/20/2015 12:42:00 2014 00:01:00 DIS Outpatient NAHOMY BETH MD [facility] PO[place] DAVID ACCESS [id number] 06/03/2015 01:11:00 2014 02:20:00 DIS Emergency AROLDO DOWELL JEANETTE K [facility] ER FALL-SWOLLEN ANKLE [id number] 04/21/2015 11:26:00 2014 23:59:59 CLS Outpatient NAHOMY BETH MD [facility] RAD ABD PAIN AND PELVIC [id number] 03/11/2015 12:33:00 2014 00:01:00 DIS Outpatient NAHOMY BETH MD [facility] PO[place] DAVID ACCESS [id number] 02/25/2015 12:48:00 2014 23:59:59 CLS Outpatient ROCIO FIELD [facility] LAB HYPERLIPIDEMIA [id number] 02/11/2015 12:40:00 2014 00:01:00 DIS Outpatient NAHOMY BETH MD [facility] PO[place] DAVID ACCESS [id number] 11/05/2014 11:39:00 2014 00:01:00 DIS Outpatient NAHOMY BETH MD [facility] [place] ACCESS [id number] 07/09/2014 13:07:00 2014 00:01:00 DIS Outpatient NAHOMY BETH MD [facility] [place] ACCESS [id number] 07/19/2014 08:00:00 2014 23:59:59 CLS Preadmit SATYA DPM, CASIE Q [facility] BILATERAL HAMMERTOE [id number] 07/13/2014 10:24:00 2014 23:59:59 CLS Outpatient SATYA DPM, CASIE Q [facility] PREOP BILATERAL HAMMERTOE [id number] 06/30/2014 11:00:00 2014 23:59:59 CLS Preadmit VICKI CARRERO FACC, ALI FACP CCDS [facility] CARD PALPITATIONS,HTN,CP [id number] 04/26/2014 07:08:00 2014 00:01:00 DIS Outpatient VICKI CARRERO FACMariaelena, ALI FACP CCDS [facility] CARD PALPITATIONS,HTN,CP [id number] 05/18/2014 09:04:00 2013 23:59:59 CLS Outpatient VICKI CARRERO FACC, ALI FACP CCDS [facility] CATH PALPITATIONS,DIZZINESS [id number] 05/13/2014 11:05:00 2013 23:59:59 CLS Outpatient VICKI CARRERO FACC, ALI FACP CCDS [facility] RAD CAROTID ARTERY STENOSIS [id number] 04/23/2014 13:06:00 2013 00:01:00 DIS Outpatient NAHOMY BETH MD [facility] PO[place] DAVID ACCESS [id number] 04/26/2014 11:35:00 2013 23:59:59 CLS Outpatient VICKI CARRERO FACC, ALI FACP CCDS [facility] CARD PALPITATIONS,CP,CVA,DVT [id number] 02/26/2014 08:48:00 2013 23:59:59 CLS Outpatient NICK ONEILL MD [facility] RAD INCOMPLETE COLONOSCOPY [id number] 02/25/2014 07:13:00 2013 12:01:00 DIS Outpatient NICK ONEILL MD [facility] ANEMIA,DIARRHEA [id number] 02/24/2014 07:30:00 2013 23:59:59 CLS Outpatient NICK ONEILL MD [facility] PREOP ANEMIA [id number] 01/29/2014 12:56:00 2013 23:59:59 CLS Outpatient ROCIO FIELD [facility] LAB CVA,DVT [id number] 01/15/2014 12:34:00 2013 00:01:00 DIS Outpatient MAYELIN ETIENNE MD [facility] SD POOR DAVID ACCESS [id number] 12/16/2013 07:16:00 2013 11:02:00 DIS Emergency CHIVO CARRERO, KRISTY Kennedy [facility] ER UNRESPONSIVE [id number] 11/12/2013 13:11:00 2013 23:59:59 CLS Outpatient KOREY BYERS MD [facility] RAD RENAL INSUFFICIENCY [id number] 10/09/2013 12:57:00 2013 00:01:00 DIS Outpatient MAYELIN ETIENNE MD [facility] SD POOR DAVID ACCESS [id number] 07/24/2013 18:12:00 2013 22:39:00 DIS Emergency CHIVO CARRERO, KRISTY Kennedy [facility] ER SEIZURE [id number] 07/03/2013 06:36:00 2013 23:59:59 CLS Outpatient NICK ONEILL MD [facility] POOR VENOUS ACCESS [id number] 06/29/2013 08:37:00 2013 23:59:59 CLS Outpatient NICK ONEILL MD [facility] PREOP POOR VENOUS ACCESS [id number] 05/11/2013 09:36:00 2012 00:01:00 DIS Outpatient MAYELIN ETIENNE MD [facility] SD POOR DAVID ACCESS [id number] 04/09/2013 10:02:00 2012 23:59:59 CLS Outpatient ROCIO FIELD [facility] RAD CAROTID ARTERIAL DISEASE,IV CONTRAST [id number] 03/18/2013 09:00:00 2012 23:59:59 CLS Outpatient NAHOMY BETH MD [facility] LAB HIGH RISK MEDICATION,CRF [id number] 12/11/2012 10:16:00 2012 00:01:00 DIS Outpatient MAYELIN ETIENNE MD [facility] POOR DAVID ACCESS [id number] 03/04/2013 05:55:00 2012 14:10:00 DIS Outpatient NICK ONEILL MD [facility] VENTRAL HERNIA/NO VENOUS ACCESS [id number] 02/27/2013 09:45:00 2012 23:59:59 CLS Outpatient VICKI CARRERO FACC, YORDAN PERDOMO CCDS [facility] RAD CVD [id number] 02/27/2013 09:01:00 2012 23:59:59 CLS Outpatient NICK ONEILL MD [facility] PREOP VENTRAL HERNIA/NO VENOUS ACCESS [id number] 02/06/2013 09:51:00 2012 16:10:00 DIS Inpatient NAHOMY BETH MD [facility] 4TH ANEMIA [id number] 02/03/2013 20:27:00 2012 23:24:00 DIS Emergency DEEPTI MARTINEZ MD [facility] ER INJ FROM FALL [id number] 01/31/2013 19:00:00 2012 22:08:00 DIS Emergency DEEPTI MARTINEZ MD [facility] ER FALL [id number] 01/09/2013 23:26:00 2012 11:46:00 DIS Inpatient NAHOMY BETH MD [facility] ICU CHEST PAIN [id number] 12/11/2012 09:43:00 2012 23:59:59 CLS Outpatient LUCIANA MARTINEZ [facility] LAB CAD [id number] 10/28/2012 08:31:00 2012 14:30:00 DIS Outpatient ARUN HERNANDEZ MD [facility] IV ACCESS [id number] 10/22/2012 10:27:00 2012 23:59:59 CLS Outpatient ARUN HERNANDEZ MD [facility] PREOP IV ACCESS [id number] 02/15/2017 08:00:00 PEN Preadedwin BELLA MD, ALLISON Stevenson [facility] ENDO RECTAL BLEEDING, ANEMIA, VENTRAL HERNIA [id number] 06/03/2015 01:23:00 Document Registration [id number] 06/03/2015 01:22:00 Document Registration [id number] 06/03/2015 01:22:00 Document Registration [id number] 09/04/2012 09:02:00 Document Registration [id number] 08/14/2012 14:39:00 Document Registration [id number] 08/14/2012 14:25:00 Document Registration [id number] 06/05/2012 10:08:00 Document Registration [id number] 05/20/2012 09:35:00 Document Registration [id number] 03/24/2012 10:10:00 Document Registration [id number] 03/12/2012 13:12:00 Document Registration [id number] 03/06/2012 14:34:00 Document Registration [id number] 02/04/2012 12:57:00 Document Registration [id number] 10/11/2011 09:50:00 Document Registration [id number] 09/04/2011 10:49:00 Document Registration [id number] 08/01/2011 09:27:00 Document Registration [id number] 07/27/2011 06:06:00 Document Registration [id number] 07/26/2011 13:02:00 Document Registration [id number] 07/23/2011 05:35:00 Document Registration [id number] 07/20/2011 15:19:00 Document Registration [id number] 03/28/2011 12:44:00 Document Registration [id number] 12/06/2010 12:32:00 Document Registration [id number] 09/04/2010 11:27:00 Document Registration [id number] 08/29/2010 11:50:00 Document Registration [id number] 08/23/2010 11:11:00 Document Registration [id number] 08/16/2010 13:00:00 Document Registration [id number] 06/22/2010 13:00:00 Document Registration [id number] 05/17/2010 12:45:00 Document Registration [id number] 05/02/2010 11:11:00 Document Registration [id number] 03/09/2010 13:06:00 Document Registration [id number] 02/17/2010 14:05:00 Document Registration [id number] 01/10/2010 13:36:00 Document Registration [id number] 12/13/2009 09:59:00 Document Registration [id number] 05/20/2007 15:19:00 Document Registration
[2017-02-15] MEDS ORDERED: LIDOCAINE JELLY 2% (XYLOCAINE) 5 ML TUBE MM PRN (07:45)
[2017-02-15] MEDS ORDERED: 1/2 NS IV SOLUTION 1,000 ML IV PRN (07:45)
[2017-02-15] MEDS ORDERED: LIDOCAINE JELLY 2% (XYLOCAINE) 5 ML TUBE ONE (08:28)
[2017-02-15] MEDS ORDERED: MIDAZOLAM 2 MG/2 ML (VERSED) VIAL ONE ×2 (08:28)
[2017-02-15] MEDS ORDERED: fentaNYL INJECTION 100 MCG/2 ML AMP ONE ×2 (08:28→08:42)
[2017-02-15] MEDS: fentaNYL INJECTION 100 MCG/2 ML AMP IVP PRN ×3 (08:40→08:49)
[2017-02-15] MEDS: MIDAZOLAM 2 MG/2 ML (VERSED) VIAL IVP PRN ×3 (08:42→08:50)
[2017-02-15 08:48] LABS: INR 1.4 (0.8-1.4); PROTHROMBIN TIME PATIENT 17.1 SEC (12.2-14.7)
[2017-02-15 09:25] VITALS: BP 162/71
[2017-02-15] MEDS ORDERED: HEParin (CENTRAL IV FLUSH) 500 UNIT/5 ML SYR ONE (09:42)
[2017-02-15 09:55] VITALS: BP 158/76
[2017-02-15] MEDS ORDERED: HEParin (CENTRAL IV FLUSH) 500 UNIT/5 ML SYR IV ONE (10:45)
--- NOTE | 2017-02-17 13:31 | OPERATIVE REPORT ---
DATE OF SERVICE: COLONOSCOPY SUMMARY INDICATION FOR THE PROCEDURE: Rectal bleeding with anemia, known ventral hernia. DESCRIPTION OF PROCEDURE: The patient was placed in the left lateral decubitus position. Prior to undergoing colonoscopy, digital rectal evaluation was performed. Anal sphincter tone was normal and the perianal reflex was intact. No abnormalities, no additional inspection of anal canal or distal rectal vault. The colonoscope was then inserted into the rectum and under direct visualization advanced to the cecum. The cecum was identified by identification of the ileocecal valve cecal strap. Photographic documentation was obtained. Careful inspection was made as the colonoscope was withdrawn. FINDINGS: There was no evidence for internal or external hemorrhoids. There are some telangiectatic blood vessels noted in the anal canal with no evidence for bleeding during the procedure. The rectum, sigmoid colon, descending colon, splenic flexure, transverse colon, hepatic flexure, ascending colon, and cecum were unremarkable. No evidence for diverticular disease or neoplasia. The patient does have a significant ventral hernia that has been essentially asymptomatic. ASSESSMENT: Normal colonoscopy to the cecum. Considering her age and medical comorbidities, would not advocate future surveillance colonoscopy. The patient was warned that she may have small volume rectal bleeding in the future not be concerned about this as long as she is not having bleeding to the point that she is requiring transfusions for rectal bleeding. I thank you for the referral of this pleasant lady. Sincerely, Job ID: [id number] DocumentID: [id number] Dictated Date: 02/15/2017 13:23:04 Marketing Content Specialist Date: 02/16/2017 03:32:36 Dictated By: ALLISON BELLA MD MTDD
== END 2017-02-15 10:30 | disposition home or self-care (01) ==
LOC: ENDO 07:26
PROVIDERS: ATTEND Internal Medicine
DX: K62.5 Hemorrhage of anus and rectum (principal); K43.9 Ventral hernia without obstruction or gangrene; D64.9 Anemia, unspecified; I12.9 Hypertensive chronic kidney disease with stage 1 through stage 4 chronic kidney disease, or unspecified chronic kidney disease; N18.9 Chronic kidney disease, unspecified; G40.909 Epilepsy, unspecified, not intractable, without status epilepticus; R25.1 Tremor, unspecified; Z86.718 Personal history of other venous thrombosis and embolism; Z86.73 Personal history of transient ischemic attack (TIA), and cerebral infarction without residual deficits; Z79.01 Long term (current) use of anticoagulants; Z80.0 Family history of malignant neoplasm of digestive organs
CPT/HCPCS: 36415; 85610

== ENCOUNTER → 2017-04-07 | Outpatient (CLI) | payer MEDICARE, MEDICAID ==
[2017-04-07 08:39] LABS: INR 1.5 (0.8-1.4); PROTHROMBIN TIME PATIENT 17.9 SEC (12.2-14.7)
== END ==
LOC: LABNPT 08:20
PROVIDERS: ATTEND Internal Medicine
DX: E56.9 Vitamin deficiency, unspecified (principal); G40.911 Epilepsy, unspecified, intractable, with status epilepticus; I25.810 Atherosclerosis of coronary artery bypass graft(s) without angina pectoris; I50.9 Heart failure, unspecified
CPT/HCPCS: 80185; 85610

== ENCOUNTER → 2017-04-18 | Outpatient (CLI) | payer MEDICARE, MEDICAID ==
--- NOTE | 2017-04-18 11:23 | Diagnostic Imaging Report ---
DEXA SPINE / JHONNY HIP Technique: Dual-energy absorptiometry of the bilateral hips and lumbar spine was performed. Indication: 67-year-old postmenopausal female for osteoporosis screening. Comparison: 10/07/2006 Findings: The total bone mineral density for the lumbar spine (L2-L4) is 0.834 g/cm which gives a T score of -3.1 and a Z score of -0.9. Since prior examination, the bone mineral density in the lumbar spine has increased by 14%, although this is likely secondary to degenerative sclerotic changes which will falsely elevate the bone mineral density. The bone mineral density of the right hip is 0.381 g/cm square which gives a T score of -5.0 and a Z score of -3.2. The bone marrow density of the left hip is 0.432 g/cm square which gives a T score of -4.6 and a Z score of -2.8. Since the prior examination, the bone marrow density in the both hips has not changed statistically be a significant amount. Impression: 1. Osteoporosis. 2. If not already performed, consider initiation of drug therapy for osteoporosis management. Dictated by: Dictated on workstation # [id number]
== END ==
LOC: RAD 08:29
PROVIDERS: ATTEND Internal Medicine
DX: M81.0 Age-related osteoporosis without current pathological fracture (principal)
CPT/HCPCS: 77080

== ENCOUNTER 2017-05-10 13:20 | Outpatient (CLI) | payer MEDICARE, MEDICAID ==
[~2017-05-10] VITALS: Ht 167.6 cm; Wt 61.2 kg
[2017-05-10] MEDS ORDERED: ZOLEDRONATE 5 MG/100 ML (RECLAST) BTL IV ONE (13:45)
[2017-05-10] MEDS ORDERED: HEParin (CENTRAL IV FLUSH) 500 UNIT/5 ML SYR ONE (14:21)
[2017-05-10 14:25] VITALS: BP 114/49
[2017-05-10 14:59] VITALS: BP 124/55
== END 2017-05-10 15:10 | disposition home or self-care (01) ==
LOC: SDC 13:20
PROVIDERS: ATTEND Internal Medicine
DX: M81.0 Age-related osteoporosis without current pathological fracture (principal)
CPT/HCPCS: 96365

== ENCOUNTER → 2017-06-07 | Outpatient (CLI) | payer MEDICARE, MEDICAID ==
[2017-06-07 17:28] LABS: INR 1.3 (0.8-1.4); PROTHROMBIN TIME PATIENT 15.8 SEC (12.2-14.7)
== END ==
LOC: LABNPT 17:12
PROVIDERS: ATTEND Internal Medicine
DX: I25.10 Atherosclerotic heart disease of native coronary artery without angina pectoris (principal)
CPT/HCPCS: 85610

== ENCOUNTER → 2017-06-12 | Outpatient (CLI) | payer MEDICARE, MEDICAID | LOC: CARD 09:37 | PROVIDERS: ATTEND Nurse Practitioner Family | DX: R07.89 Other chest pain (principal); I10 Essential (primary) hypertension; E78.4 Other hyperlipidemia; I65.23 Occlusion and stenosis of bilateral carotid arteries | CPT/HCPCS: 93306 ==

== ENCOUNTER → 2017-06-13 | Outpatient (CLI) | payer MEDICARE, MEDICAID ==
[~2017-06-13] MED LIST changes: +CATHETER FLUSH 10 ML SYR IV PRN; +HEParin (CENTRAL IV FLUSH) 500 UNIT/5 ML SYR IV ONE; +HEParin (CENTRAL IV FLUSH) 500 UNIT/5 ML SYR ONE; +REGADENOSON 0.4 MG/5 ML SYR (LEXISCAN) IV ONE
[2017-06-13 08:19] VITALS: BP 128/57
[2017-06-13 08:23] VITALS: BP 156/60
[2017-06-13 08:25] VITALS: BP 142/61
--- NOTE | 2017-06-14 17:55 | STRESS TEST ---
DATE OF SERVICE: 06/13/2017 RESTING AND POST REGADENOSON TECHNETIUM-99M TETROFOSMIN SPECT CT IMAGING ORDERING PHYSICIAN: Annalisa Metz APRN. PRIMARY PHYSICIAN: OTHER PHYSICIAN: Dr. Cohen. CLINICAL DIAGNOSES: Chest pain, hypertension, hyperlipidemia. Baseline images were carried out after injection of 10.96 mCi of technetium-99m Tetrofosmin. This was followed by 0.4 mg regadenoson and 32.5 mCi technetium-99m Tetrofosmin for stress imaging. The electrocardiogram showed sinus rhythm at baseline and it did not change significantly with the regadenoson infusion. Overall, the patient tolerated the procedure well. Review of images at rest and following stress does not indicate any significant perfusion defects consistent with significant myocardial ischemia or infarction. Gated images show normal global left ventricular systolic function with normal regional wall motion. Left ventricular ejection fraction is calculated to be 69%. Left ventricular end diastolic volume is 59 mL. TID is absent (1). CONCLUSION: 1. No evidence of any significant myocardial ischemia or infarction on this study. 2. Normal regional wall motion. 3. Normal global left ventricular systolic function with a calculated ejection fraction of 69%. Job ID: [id number] DocumentID: [id number] Dictated Date: 06/14/2017 10:24:43 Treating Inspector Date: 06/14/2017 12:12:48 Dictated By: YORDAN COHEN MD, MA, FACP, FACC, MTDD
== END ==
LOC: CARD 07:02
PROVIDERS: ATTEND Nurse Practitioner Family
DX: I10 Essential (primary) hypertension (principal); E78.4 Other hyperlipidemia; I65.23 Occlusion and stenosis of bilateral carotid arteries; R07.89 Other chest pain
CPT/HCPCS: 78452; 93017

== ENCOUNTER 2017-07-02 06:41 | Day surgery (SDC) | payer MEDICARE, MEDICAID ==
[2017-07-02] VITALS (10 sets, daily range): BP systolic 132–176; BP diastolic 53–65
[~2017-07-02] VITALS: Ht 154.9 cm; Wt 49.0 kg
[~2017-07-02 06:41] MED LIST changes: -CATHETER FLUSH 10 ML SYR IV PRN; -HEParin (CENTRAL IV FLUSH) 500 UNIT/5 ML SYR IV ONE; -HEParin (CENTRAL IV FLUSH) 500 UNIT/5 ML SYR ONE; -REGADENOSON 0.4 MG/5 ML SYR (LEXISCAN) IV ONE
[2017-07-02] MEDS ORDERED: HEParin (CATH LAB) 2,000 ML IV ONE (06:51)
[2017-07-02] MEDS ORDERED: LIDOCAINE 1% INJ 50 ML (XYLOCAINE) VIAL ONE (06:51)
[2017-07-02] MEDS ORDERED: NS IV 1000 ML 1,000 ML ONE (06:51)
[2017-07-02 07:28] LABS: HEMOGLOBIN 11.2 G/DL (11.5-16.0); MEAN PLATELET VOLUME 9.7 FL (7.4-10.4); RED BLOOD COUNT 3.54 10^6/uL (4.35-5.85); RED CELL DISTRIBUTION WIDTH 13.8 % (10.0-14.5); WHITE BLOOD COUNT 6.7 10^3/uL (4.3-11.0)
[2017-07-02] MEDS ORDERED: NS IV 1000 ML 1,000 ML IV SCH ×2 (07:45→11:32)
[2017-07-02 07:46] LABS: INR 1.2 (0.8-1.4); PROTHROMBIN TIME PATIENT 14.9 SEC (12.2-14.7)
[2017-07-02 07:54] LABS: ALANINE AMINOTRANSFERASE 12 U/L (0-55); ALBUMIN 3.9 GM/DL (3.2-4.5); ALKALINE PHOSPHATASE 110 U/L (40-136); BILIRUBIN,TOTAL 0.4 MG/DL (0.1-1.0); BUN/CREATININE RATIO 16; CALCIUM 8.9 MG/DL (8.5-10.1); CARBON DIOXIDE 20 MMOL/L (21-32); CHLORIDE 107 MMOL/L (98-107); CHOLESTEROL 165 MG/DL (< 200); CREATININE SERUM 0.79 MG/DL (0.60-1.30); GFR ESTIMATED > 60; GLUCOSE 87 MG/DL (70-105); HDL CHOLESTEROL 83 MG/DL (40-60); SODIUM 135 MMOL/L (135-145); TOTAL PROTEIN 6.9 GM/DL (6.4-8.2); TRIGLYCERIDES 73 MG/DL (<150); VLDL CHOLESTEROL 15 MG/DL (5-40)
[2017-07-02] MEDS ORDERED: PHEN100C11 PO (08:28)
[2017-07-02] MEDS ORDERED: PHEN50TA4 PO (08:28)
[2017-07-02] MEDS ORDERED: FLUT9.9S NSEACH (08:28)
[2017-07-02] MEDS ORDERED: CEPH-507 PO (08:28)
[2017-07-02] MEDS ORDERED: CARB15DR74 OU (08:28)
[2017-07-02] MEDS ORDERED: PROP10DR4 OU (08:28)
[2017-07-02] MEDS ORDERED: CITA20TA12 PO (08:28)
[2017-07-02] MEDS ORDERED: GUAI100L13 PO (08:28)
[2017-07-02] MEDS ORDERED: MELA5TAB21 PO (08:28)
[2017-07-02] MEDS ORDERED: CARB15DR3 OU (08:28)
[2017-07-02] MEDS ORDERED: MIDAZOLAM 5 MG/5 ML (VERSED) VIAL ONE (08:29)
[2017-07-02] MEDS ORDERED: diphenhydrAMINE 50 MG/ML INJ (BENADRYL) ONE (08:29)
[2017-07-02] MEDS ORDERED: fentaNYL INJECTION 100 MCG/2 ML AMP ONE (08:29)
--- NOTE | 2017-07-02 10:23 | Cardiac Procedure Note-CS/ASA ---
Pre-Procedure Note Pre-Op Procedure Note H&P Reviewed The H&P was reviewed, patient examined and no changes noted. Date H&P Reviewed: Jul 02, 2017 Time H&P Reviewed: 08:50 Conscious Sedation Pre-Proced Time Reviewed: 08:50 ASA Class: 3 Airway Mallampati Classification: ([place] appropriate class) I. II. III, IV Lungs Heart ASA score ASA 1: a normal healthy patient ASA 2: a patient with a mild systemic disease (mid diabetes, controlled hypertension, obesity ASA 3: a patient with a severe systemic disease that limits activity (angina , COPD, prior Myocardial infarction) ASA 4: a patient with an incapacitating disease that is a constant threat to life (CHF, renal failure) ASA 5: a moribund patient not expected to survive 24 hrs. (ruptured aneurysm) ASA 6: a declared brain patient whose organs are being harvested. For emergent operations, add the letter E after the classification Grade 2 Sedation Plan: Analgesia, Amnesia, Plan communicated to team members, Discussed options with patient/fam, Discussed risks with patient/fam Note The patient is an appropriate candidate to undergo the planned procedure, sedation, and anesthesia. The patient immediately re-assessed prior to indication. YORDAN COHEN MD FACP FAC CCDS Jul 02, 2017 10:23
--- NOTE | 2017-07-02 10:25 | Discharge Inst-Post CATH ---
Discharge Inst-CATH Post Cardiac Cath D/C Inst Follow Up/Plan F/u with Dr Baird in 1-2 weeks CARDIAC CATH DISCHARGE INSTRUCTIONS *Hold Metformin for 48 hours post heart cath. ACTIVITY * Go Home directly and rest. * Limit activity of the leg (or wrist if it was used) for 7 days including aerobics, swimming, jogging, bicycling, etc. * Restrict stair-climbing for 7 days if possible, if not, climb up with your non -cath leg, then bring together on the same step. * Avoid lifting, pushing, pulling or excessive movement of the affected extremity for 7 days. * Customary sexual activity may be resumed after 2 days-use caution not to use a position that strains or causes pain to the affected extremity. * No driving for 24 hours. * NO SMOKING. * Avoid straining for bowel movements for 7 days. * Gentle walking on level ground is allowed. * Returning to work will depend on the type of procedure and the results. Your doctor will discuss this with you. CALL YOUR DOCTOR FOR ANY OF THE FOLLOWING: *If bleeding from the puncture site occurs- Apply gentle pressure to site with clean cloth and call your doctor or EMS. * If a knot or lump forms under the skin, increases in size, or causes pain. * If bruising appears to be worsening or moving further down your leg instead of disappearing. * Temperature above 101 F. CARE OF YOUR GROIN INCISION; * Bruising or purple discoloration of the skin near the puncture site is common. * You may shower only, no bathtub bathing for 5 days. Be careful to avoid slipping as your leg may feel stiff. * If a closure device was used on your femoral artery, please see the attached guide regarding care of the device and your leg. * REMOVE the dressing from your groin the next day after your procedure in the shower. CARE OF YOUR WRIST INCISION; * Bruising or purple discoloration of the skin near the puncture site is common. * You may shower. * DO NOT submerge wrist. * Remove dressing in 24 hours. YORDAN BAIRD MD [facility] CCDS Jul 02, 2017 10:25
--- NOTE | 2017-07-02 10:26 | Discharge Inst-Cardiology ---
Discharge Inst-Cardiac Discharge Medications Continued Medications: Acetaminophen (Tylenol Arth Pain (Non-Formulary)) 650 Mg Cplt 650 MG PO Q4H PRN for PAIN Atorvastatin Calcium (Lipitor) 40 Mg Tablet 40 MG PO HS, TAB Butalb/Acetaminophen/Caffeine (Cgzhne-Bsaxonzy-Kzuk 50-300-40) 1 Each Capsule 1 EACH PO Q6H PRN for HEADACHE, CAP Carboxymethylcellulose Sodium (Refresh Tears) 15 Ml Drops 1 DROP OU QIDACHS, DROPS Carboxymethylcellulose Sodium (Refresh Liquigel) 15 Ml Drp.lq.gel 1 DROP OU Q4H PRN for SEASONAL ALLERGIES, DROPS Cephalexin (Keflex) 500 Mg Capsule 500 MG PO BID, CAP Cholecalciferol (Vitamin D3) (Vitamin D) 5,000 Unit Capsule 5000 UNIT PO BID, CAP EVERY 7 DAYS Citalopram Hydrobromide (Celexa) 20 Mg Tablet 20 MG PO DAILY, TAB Clorazepate Dipotassium (Clorazepate Dipotassium) 3.75 Mg Tablet 3.75 MG PO BID, TAB Cyanocobalamin (Cyanocobalamin Injection) 1,000 Mcg/Ml Inj 1000 MCG IJ Q 14 DAYS, VIAL Fentanyl (Duragesic 75MCG Patch) 1 Ea Patch 75 MCG TD Q72H Fluticasone Propionate (Flonase Allergy Relief) 9.9 Ml [place].susp 1 SPRAY NSEACH BID, SPRAY Folic Acid (Folic Acid) 1 Mg Tablet 1 MG PO DAILY Gabapentin (Gabapentin) 400 Mg Capsule 400 MG PO HS PAIN IN JOINTS Guaifenesin (Guaifenesin) 100 Mg/5 Ml Liquid 10 ML PO Q6H PRN for COUGH, EA Hydrocortisone/Pramoxine (Hydrocort-Pramoxine 2.5-1% Crm) 30 Gm Cream.appl 30 GM RC PRN, APPLIC Ibuprofen (Ibuprofen) 400 Mg Tablet 400 MG PO Q6H PRN for PAIN, TAB Lamotrigine (Lamotrigine) 100 Mg Tablet 100 MG PO BID Melatonin (Melatonin) 5 Mg Tab.ir.er 5 MG PO HS Metoprolol Tartrate (Metoprolol Tartrate 25 Mg) 25 Mg Tablet 25 MG PO BID Nitroglycerin (Nitrodur) 0.2 Mg/Patch Patch 0.2 MG TD DAILY Omeprazole (Omeprazole) 20 Mg Tablet.dr 20 MG PO DAILY Ondansetron HCl (Zofran) 4 Mg Tab 4 MG PO Q6H PRN for NAUSEA/VOMITING-1ST LINE, TAB Phenytoin (Phenytoin) 50 Mg Tab.chew 50 MG PO DAILY, TAB Phenytoin Sodium Extended (Phenytoin Sodium Extended) 100 Mg Capsule 100 MG PO DAILY, CAP Polyethylene Glycol (Miralax Btl) 119 Gm Btl 17 GM PO BID, EA Promethazine HCl (Promethazine HCl) 6.25 Mg/5 Ml Syrup 8 ML PO Q4H PRN for NAUSEA/VOMITING-1ST LINE, ML Propylene Glycol/Peg 400 (Systane Gel Eye Drops) 10 Ml Drops.gel 1 DROP OU HS, TUBE Sodium Bicarbonate (Sodium Bicarbonate) 650 Mg Tablet 650 MG PO DAILY, TAB Topiramate (Topamax 100 Mg) 100 Mg Tab 100 MG PO BID Warfarin Sodium (Warfarin Sodium) 1 Mg Tablet 1 MG PO 1700, TAB Saturday Warfarin Sodium (Warfarin Sodium) 1 Mg Tablet 1.5 MG PO 1700, TAB SUN,SAT,,JAVON,SAT YORDAN COHEN MD FACP FACC CCDS Jul 02, 2017 10:26
[2017-07-02] MEDS ORDERED: PATIENT MAY USE OWN MEDS, ALL PO SCH (11:45)
--- NOTE | 2017-07-02 12:59 | CARDIAC CATHETERIZATION ---
DATE OF SERVICE: 07/02/2017 CARDIAC CATHETERIZATION REPORT. HISTORY OF PRESENT ILLNESS: The patient is a 67-year-old lady, who is found to have moderate to severe aortic valve regurgitation on echocardiography of 06/12/2017. Prior cardiac catheterization was carried out today after having obtained an informed consent. PROCEDURE: She was brought to the cardiac catheterization laboratory in a fasting state. The left groin was prepared and draped in the usual sterile fashion. She has had a previous abdominoperineal surgery. The right groin did not appear suitable for access. The left groin was prepared and draped in the usual sterile fashion. Lidocaine 1% was used for local anesthesia. Modified Seldinger technique was used to advance a 5-Luxembourger sheath in the left femoral artery. We made multiple attempts to cannulate the left femoral vein, but we were unsuccessful. We proceeded with the left heart catheterization. We advanced a 5-Luxembourger pigtail catheter to the aortic root and aortic root angiography was performed. This was to evaluate the degree of aortic regurgitation. We then advanced the pigtail catheter into the left ventricle and pressure measurements were carried out and left ventricular angiography was carried out. The catheter was then pulled back to the aortic arch and we reperformed aortic arch angiography because the aortic root angiography had indicated mild dilatation of the ascending aorta and we wanted to evaluate for any thoracic aortic aneurysm or dissection. The pigtail catheter was then removed. We used a 5-Luxembourger JL4 catheter to carry out left coronary angiography and 5-Luxembourger JR4 catheter to carry out right coronary angiography. Angiography of the right femoral artery was carried out through the sheath. Meanwhile pressure was used to achieve hemostasis following sheath removal. Overall, she tolerated the procedure well. HEMODYNAMICS: Left ventricular end-diastolic pressure following coronary angiography was 12 mmHg. There was no significant pressure gradient on pullback across the aortic valve. Ascending aortic pressure was 146/52 with a mean of 88 mmHg. AORTIC ROOT ANGIOGRAPHY: Aortic root angiography indicated moderate aortic regurgitation (2+). Aortic valve leaflets show good leaflet excursion. There appeared to be mild dilatation of the ascending aorta. AORTIC ARCH ANGIOGRAPHY: Aortic arch angiography showed the thoracic aorta quite well and there was no evidence of any significant thoracic aortic aneurysm or dissection. The neck arteries, to the extent visualized, did not indicate any significant disease. LEFT VENTRICULAR ANGIOGRAPHY: Left ventricular angiography was carried out in the right anterior oblique projection. Global left ventricular systolic function is normal. Left ventricular ejection fraction approximately 60%. There does not appear to be significant mitral regurgitation. CORONARY ANGIOGRAPHY: Left main coronary artery, left anterior descending artery, left circumflex artery do not exhibit any angiographically significant disease. CONCLUSIONS: 1. Moderate aortic regurgitation. 2. No evidence of significant thoracic aortic aneurysm or dissection. 3. Normal global left ventricular systolic function with ejection fraction of 60%. 4. Normal left ventricular end-diastolic pressure. 5. No significant obstructive coronary artery disease. DISCUSSION AND RECOMMENDATIONS: Based on results of the study, it appears appropriate to continue a conservative approach. Continuing outpatient followup is advised. Job ID: [id number] DocumentID: [id number] Dictated Date: 07/02/2017 10:15:05 Vertical Contour Band Saw Operator Date: 07/02/2017 12:58:12 Dictated By: YORDAN COHEN MD, MA, FACP, FACC,
[2017-07-02] MEDS ORDERED: HEParin (CENTRAL IV FLUSH) 500 UNIT/5 ML SYR ONE (13:29)
[2017-07-02] MEDS ORDERED: IBUPROFEN TABLET 200 MG TAB PO ONE (13:30)
[2017-07-02] MEDS ORDERED: HEParin (CENTRAL IV FLUSH) 500 UNIT/5 ML SYR IV ONE (13:30)
== END 2017-07-02 14:50 | disposition home or self-care (01) ==
LOC: CATH 06:41 → SURG 10:25 → CATH 14:50
PROVIDERS: ATTEND Internal Medicine Cardiovascular Disease
DX: I35.1 Nonrheumatic aortic (valve) insufficiency (principal); E78.5 Hyperlipidemia, unspecified; I12.9 Hypertensive chronic kidney disease with stage 1 through stage 4 chronic kidney disease, or unspecified chronic kidney disease; N18.3 Chronic kidney disease, stage 3 (moderate); I65.23 Occlusion and stenosis of bilateral carotid arteries; G62.9 Polyneuropathy, unspecified; M19.91 Primary osteoarthritis, unspecified site; I69.354 Hemiplegia and hemiparesis following cerebral infarction affecting left non-dominant side; Z86.718 Personal history of other venous thrombosis and embolism; Z79.01 Long term (current) use of anticoagulants; Z79.899 Other long term (current) drug therapy
CPT/HCPCS: 36221; 36415; 80053; 80061; 85027; 85610; 85730; 87081; 93458; 93567

== ENCOUNTER → 2017-09-04 | Outpatient (CLI) | payer MEDICARE, MEDICAID ==
[~2017-09-04] MED LIST changes: +CARB15DR3 OU; +CARB15DR74 OU; +CEPH-507 PO; +CITA20TA12 PO; +FLUT9.9S NSEACH; +GUAI100L13 PO; +MELA5TAB21 PO; +PHEN100C11 PO; +PROP10DR4 OU; +WARF1TAB82 PO
--- NOTE | 2017-09-04 19:39 | Diagnostic Imaging Report ---
INDICATION: Screening. At this time there are no current complaints. EXAMINATION: Bilateral digital screening mammogram with CAD. The current study was also evaluated with a Computer Aided Detection (CAD) system. COMPARISON: This study was compared to the prior exams of 08/23/16. FINDINGS: There is fibroglandular tissue in both breasts. When compared to the prior study there does not appear to have been any adverse change. There is no primary or secondary sign of malignancy noted. IMPRESSION: There is no evidence for malignancy. ACR BI-RADS Category 1: Negative. Result letter will be mailed to the patient. Note: At least 10% of breast cancer is not imaged by mammography. Dictated by: Dictated on workstation # [id number]
== END ==
LOC: RAD 10:08
PROVIDERS: ATTEND Internal Medicine
DX: Z12.31 Encounter for screening mammogram for malignant neoplasm of breast (principal)
CPT/HCPCS: 77067

== ENCOUNTER 2017-09-19 03:08 | Inpatient (IN) | payer MEDICARE, MEDICAID ==
[~2017-09-19] VITALS: Ht 154.9 cm; Wt 51.8 kg
--- OUTSIDE RECORDS SUMMARY | 2017-09-19 03:13 | XMS REPORT ---
Author Author IRENE PATEL Organization [facility] Address [address] [place] [address] Care Team Providers Care Client Representative Name Role Phone IRENE PATEL Unavailable PROBLEMS Type Condition ICD9-CM Code [id number] Code Onset Dates Condition Status SNOMED Code Problem Insomnia, unspecified type G47.00 Active 080730383 Problem Chronic kidney disease, unspecified stage N18.9 Active 157269172 Problem Perennial allergic rhinitis, unspecified allergic rhinitis trigger J30.89 Active 966462710 Problem Seizure disorder G40.909 Active 640150747 Problem Back pain M54.9 Active 029213809 Problem History of CVA with residual deficit I69.30 Active 190832241 Problem Age-related osteoporosis without current pathological fracture M81.0 Active 88894717 Problem Personality disorder F60.9 Active 07252843 Problem History of colon polyps Z86.010 Active 478889501 Problem Gastroesophageal reflux disease without esophagitis K21.9 Active 968295589 Problem Factitious disorder imposed on self, recurrent episode F68.10 Active 03751090 Problem Anemia, unspecified type D64.9 Active 224411783 ALLERGIES Unknown Allergies SOCIAL HISTORY No smoking Hx information available PLAN OF CARE VITAL SIGNS MEDICATIONS Medication Instructions Dosage Frequency Start Date End Date Duration Status Fentanyl 75 MCG/HR Transdermal, every 72 hours 1 patch to skin Jul, 30 days Active RESULTS No Results PROCEDURES No Known procedures IMMUNIZATIONS No Known Immunizations
--- OUTSIDE RECORDS SUMMARY | 2017-09-19 03:13 | XMS REPORT ---
Author Author IRENE PATEL Organization [facility] Address [address] [place] [address] Care Team Providers Care Vocational Education Teacher Name Role Phone IRENE PATEL Unavailable PROBLEMS Type Condition ICD9-CM Code GWD28-OX Code Onset Dates Condition Status SNOMED Code Problem Insomnia, unspecified type G47.00 Active 328304922 Problem Chronic kidney disease, unspecified stage N18.9 Active 907325928 Problem Perennial allergic rhinitis, unspecified allergic rhinitis trigger J30.89 Active 797368499 Problem Seizure disorder G40.909 Active 606182231 Problem Back pain M54.9 Active 723770076 Problem History of CVA with residual deficit I69.30 Active 914919988 Problem Age-related osteoporosis without current pathological fracture M81.0 Active 01436421 Problem Personality disorder F60.9 Active 90355682 Problem History of colon polyps Z86.010 Active 497272786 Problem Gastroesophageal reflux disease without esophagitis K21.9 Active 557940055 Problem Factitious disorder imposed on self, recurrent episode F68.10 Active 73712316 Problem Anemia, unspecified type D64.9 Active 533639485 ALLERGIES No Information SOCIAL HISTORY Never Assessed PLAN OF CARE VITAL SIGNS MEDICATIONS Medication Instructions Dosage Frequency Start Date End Date Duration Status Coumadin 1 MG Orally mon, wed and fri. 1/2 tablet 30 days Active Coumadin 1 MG Orally tu, shira, sat, sun. 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
--- OUTSIDE RECORDS SUMMARY | 2017-09-19 03:15 | XMS REPORT ---
Author Author NAHOMY BETH Organization [facility] Address [address] [place] [address] Care Team Providers Care Instrumentation Chemist Name Role Phone NAHOMY BETH Unavailable PROBLEMS Type Condition ICD9-CM Code [id number] Code Onset Dates Condition Status SNOMED Code Problem Insomnia, unspecified type G47.00 Active 727448506 Problem Chronic kidney disease, unspecified stage N18.9 Active 242831578 Problem Perennial allergic rhinitis, unspecified allergic rhinitis trigger J30.89 Active 732400596 Problem Seizure disorder G40.909 Active 087597890 Problem Back pain M54.9 Active 846993183 Problem History of CVA with residual deficit I69.30 Active 635290482 Problem Age-related osteoporosis without current pathological fracture M81.0 Active 09278614 Problem Personality disorder F60.9 Active 01766407 Problem History of colon polyps Z86.010 Active 793435139 Problem Gastroesophageal reflux disease without esophagitis K21.9 Active 611039395 Problem Factitious disorder imposed on self, recurrent episode F68.10 Active 13416689 Problem Anemia, unspecified type D64.9 Active 156167910 ALLERGIES No Information SOCIAL HISTORY Never Assessed PLAN OF CARE VITAL SIGNS MEDICATIONS Unknown [...] surgery and skin graft, cholecysectomy Hospitalization History [facility] 12/2016
--- OUTSIDE RECORDS SUMMARY | 2017-09-19 03:15 | XMS REPORT ---
Author Author IRENE PATEL Organization [facility] Address [address] [place] [address] Care Team Providers Care Mold Repair Technician Name Role Phone IRENE PATEL Unavailable PROBLEMS Type Condition ICD9-CM Code PKV26-VS Code Onset Dates Condition Status SNOMED Code Problem Insomnia, unspecified type G47.00 Active 617342315 Problem Chronic kidney disease, unspecified stage N18.9 Active 189883208 Problem Perennial allergic rhinitis, unspecified allergic rhinitis trigger J30.89 Active 675103437 Problem Seizure disorder G40.909 Active 767553239 Problem Back pain M54.9 Active 294224714 Problem History of CVA with residual deficit I69.30 Active 348037148 Problem Age-related osteoporosis without current pathological fracture M81.0 Active 36609458 Problem Personality disorder F60.9 Active 67523137 Problem History of colon polyps Z86.010 Active 923459285 Problem Gastroesophageal reflux disease without esophagitis K21.9 Active 149405364 Problem Factitious disorder imposed on self, recurrent episode F68.10 Active 80045687 Problem Anemia, unspecified type D64.9 Active 020942170 ALLERGIES Unknown Allergies SOCIAL HISTORY No smoking Hx information available PLAN OF CARE VITAL SIGNS MEDICATIONS Medication Instructions Dosage Frequency Start Date End Date Duration Status Fentanyl 75 MCG/HR Transdermal, every 72 hours 1 patch to skin Dec, 30 days Active RESULTS No Results PROCEDURES No Known procedures IMMUNIZATIONS No Known Immunizations
--- OUTSIDE RECORDS SUMMARY | 2017-09-19 03:15 | XMS REPORT ---
Author Author NAHOMY BETH Organization [facility] Address [address] [place] [address] Care Team Providers Care Proof Sorter Name Role Phone NAHOMY BETH Unavailable PROBLEMS Type Condition ICD9-CM Code TCL14-VY Code Onset Dates Condition Status SNOMED Code Problem Chronic kidney disease, unspecified stage N18.9 Active 888373263 Problem History of colon polyps Z86.010 Active 750842845 Problem Gastroesophageal reflux disease without esophagitis K21.9 Active 007398039 Problem Iron deficiency anemia, unspecified iron deficiency anemia type D50.9 Active 55075580 Problem Anxiety F41.9 Active 53174083 Problem Personality disorder F60.9 Active 99079973 Problem Anemia, unspecified type D64.9 Active 444223163 Problem Age-related osteoporosis without current pathological fracture M81.0 Active 23048165 Problem Factitious disorder imposed on self, recurrent episode F68.10 Active 00793374 Problem Back pain M54.9 Active 494457199 Problem History of CVA with residual deficit I69.30 Active 267755519 Problem Insomnia, unspecified type G47.00 Active 468159691 Problem Seizure disorder G40.909 Active 516231994 Problem Perennial allergic rhinitis, unspecified allergic rhinitis trigger J30.89 Active 753974625 ALLERGIES No Information ENCOUNTERS Encounter Location Date Diagnosis [place] [address] [facility] [id number] [address] Dec, [place] [id number] [place] [address] 46583- 6459 Sep, [place] [id number] [place] [address] 25907- 7026 Aug, Factitious disorder imposed on self, recurrent episode F68.10 ; Personality disorder F60.9 ; Insomnia, unspecified type G47.00 and Anxiety F41.9 [place] [address] [place] [id number] [address] Aug, Back pain M54.9 ; Iron deficiency anemia, unspecified iron deficiency anemia type D50.9 ; Chronic kidney disease, unspecified stage N18.9 and Breast cancer screening Z12.31 [facility] [place] [id number] [id number] Jul, Back pain M54.9 [facility] [place] [id number] [id number] Jul, [facility] [place] [address] [id number] [id number] Jul, [facility] [place] [address] [id number] [id number] Jun, Back pain M54.9 [facility] [place] [id number] [place] [id number] Jun, [facility] [place] [address] [id number] [address] Jun, Back pain M54.9 [facility] [id number] [address] [address] Jun, Back pain M54.9 ; Seizure disorder G40.909 and Age-related osteoporosis without current pathological fracture M81.0 [facility] [place] [address] [id number] [id number] May, [facility] [id number] [address] 7518 May, Back pain M54.9 [facility] [id number] Apr, Back pain M54.9 ; Encounter for immunization Z23 ; Gastroesophageal reflux disease without esophagitis K21.9 ; Age-related osteoporosis without current pathological fracture M81.0 and Chronic pruritus L29.9 [facility] [address] [id number] [address] 8663 Apr, History of CVA with residual deficit I69.30 [facility] [address]005[address]100[place] [address] 95[address] 16 Apr, 2017 Factitious disorder imposed on self, recurrent episode F68.10 and Personality disorder F60.9 [facility] [place] [id number] [place] [id number] 08 Apr, 2017 Back pain M54.9 [facility] [id number] [place] [address] 91752- 5250 Mar, Factitious disorder imposed on self, recurrent episode F68.10 [facility] [id number] [place] [address] 85536- 2465 Mar, [facility] [place] [id number] [place] [address] [id number] Mar, [facility] [place] [id number] [place] [address] [id number] Mar, Back pain M54.9 [facility] [id number] [place] [address] 01815- 3736 05 Mar, 2017 Back pain M54.9 ; Seizure disorder G40.909 and Age-related osteoporosis without current pathological fracture M81.0 [facility] [id number] [place] [address] 63702- 1428 Feb, History of CVA with residual deficit I69.30 [facility] [id number] [place] [address] 97141- 9851 Feb, Factitious disorder imposed on self, recurrent episode F68.10 and Personality disorder F60.9 [facility] [address] [place] [address] 74662- 3146 15 Feb, 2017 Back pain M54.9 [facility] [address]00565100[place] [address] 5151 Feb, [facility] [id number] [place] [address] 51372- 0913 Jan, [facility] [address] [id number] Jan, Age- related osteoporosis without current pathological fracture M81.0 and Allergic state, subsequent encounter T78.40XD [facility] [address]00565100[place] [address] 0014 Jan, Factitious disorder imposed on self, recurrent episode F68.10 and Personality disorder F60.9 [facility] [address] [place] [address] 04609- 5168 Dec, Back pain M54.9 [facility] [address] [place] [address] 71614- 1810 Dec, Personality disorder F60.9 and Factitious disorder imposed on self, recurrent episode F68.10 [facility] [place] [address] [place] [id number] [address] Dec, Back pain M54.9 [facility] [id number] [place] [address] [id number] Dec, [facility] [address] [id number] [place] [address] [id number] Dec, [facility] [id number] [place] [address] 36216- 6963 Dec, [facility] [address]00565100[place] [address]- 7086 Nov, [facility] [id number] [place] [address] 15574- 6945 Nov, Back pain M54.9 ; Anemia, unspecified type D64.9 and History of colon polyps Z86.010 [facility] [id number] [place] [address] 45008- 7855 Nov, Back pain M54.9 [facility] [id number] [id number] October, Back pain M54.9 [facility] [address] [id number] October, Back pain M54.9 and Gastroesophageal reflux disease without esophagitis K21.9 [facility] [address] [id number] [address] Sep, [facility] [address] [facility] [id number] [address]- 6807 Sep, [facility] [id number] [place] [address] 31761- 8083 Sep, [facility] [address] [place] [id number] [place] [address] 30267- 2186 Sep, [facility] [id number] [place] [address] 82824- 3285 Sep, [facility] [id number] [place] [address] 42915- 7219 Sep, Seizure disorder G40.909 [facility] [id number] [place] [address] 26110- 6985 Sep, Back pain M54.9 [facility] [address] [address]- 7057 Sep, [facility] [address] [place] [id number] [address]- 4880 Aug, Back pain M54.9 [facility] [address]100[place] [address]- 7986 29 Aug, 2016 Seizure disorder G40.909 [facility] [address] [place] [address] [id number] [id number] Aug, [facility] [id number] [place] [address] 16 Aug, 2016 Back pain M54.9 [facility] [id number] [place] [id number] 14 Aug, 2016 Back pain M54.9 [facility] [id number] [place] [address] Aug, Back pain M54.9 [facility], [facility] [address] [id number] Jul, Weakness R53.1 [place] [address] [place] [id number] [place] [address] 05945- 1990 Jul, Seizure disorder G40.909 [place] [id number] [place] [address] 37040- 5186 Jul, [place] [address] [place] [id number] [place] [address] 67443- 8929 Jul, Breast cancer screening Z12.39 [place] [address] [place] [id number] [place] [address] 68626- 4184 Jul, [place] [address] [place] [id number] [place] [address] 13991- 2215 Jul, [place] [address] [place] [id number] [place] [address] 97241- 4943 Jul, [place] [id number] [place] [address] 45863- 8678 Jul, Seizure disorder G40.909 ; Fatigue, unspecified type R53.83 ; Perennial allergic rhinitis, unspecified allergic rhinitis trigger J30.89 and Chronic kidney disease, unspecified stage N18.9 [place] [address] [address]- 3810 Jul, [place] [address] [place] [id number] [place] [address] 02957- 4178 Jul, Seizure disorder G40.909 [place] [id number] [place] [address] 35704- 1232 Jun, [place] [id number] [place] [address] 66479- 2859 Jun, [facility], [facility] [address] [id number] Jun, Perennial allergic rhinitis, unspecified allergic rhinitis trigger J30.89 [facility] [place] [address] [id number] [place] [address] [id number] Jun, [facility] [address] [id number] [place] [address] 31066- 9352 Jun, Seizure disorder G40.909 [facility] [place] [address] [id number] [place] [address] [id number] Jun, [facility] [place] [address] [address] [id number] [place] [address] [id number] May, [facility] [id number] [place] [address] 81491- 3550 May, [facility] [address] [id number] [place] [address] 61410- 8568 May, [facility] [address] [place] [id number] [place] [address] 24171- 1179 May, [facility] [address] [id number] [place] [address] 00672- 1078 May, History of CVA with residual deficit I69.30 [facility] [address] [place] [id number] [place] [address] 90057- 9793 May, [facility] [address] [place] [id number] [place] [address] 81391- 8832 May, [facility] [address] [place] [id number] [place] [address] 18348- 5984 May, [facility] [address] [place] [address] 75775- 9292 May, Seizure disorder G40.909 [facility] [address] [place] [id number] [place] [address] 56310- 5739 May, [employer] [address] [place] [address] May, Back pain M54.9 and Seizure disorder G40.909 [facility] [address] [place] [id number] [place] [address] 97154- 0956 Apr, [facility] [address] [facility] [id number] [address]- 7314 Apr, Back pain M54.9 [facility] [address] [facility] [id number] [place] [address]- 4194 Mar, [employer] [address] [place] [address] Mar, Insomnia, unspecified type G47.00 [facility] [address] [facility] [id number] [place] [address] 97567- 1654 Mar, [facility] [address] [facility] [id number] [place] [address] 27357- 1508 Feb, [facility] [id number] [place] [address] 79314- 2856 Feb, [facility] [id number] [place] [address] 19050- 1919 Feb, [facility] [address] [facility] [id number] [place] [address] 91010- 6585 Jan, [facility] [address] [place] [address] 76035- 4119 Jan, [employer] [address] [place] [address] Jan, Seizure disorder G40.909 and Back pain M54.9 [facility] [address] [facility] [id number] [place] [address] 66053- 9478 Dec, [facility] [address] [facility] [id number] [address]- 6798 Dec, [facility] [address] [facility] [id number] [place] [address] 56944- 4843 Dec, [facility] [address] [facility] [id number] [place] [address]- 4735 Nov, [facility] [id number] [place] [address] 83194- 0292 Nov, [facility] [address] [id number] [place] [address] 24005- 7691 Nov, Back pain M54.9 [facility] [address] [place] [id number] [place] [address] 10208- 8075 October, [facility] [id number] [place] [address] 07849- 6166 October, Back pain M54.9 [facility] [address] [id number] [place] [address] 73610- 5591 October, Seizure disorder G40.909 and B12 deficiency E53.8 [facility] [address] [id number] [place] [address] 03605- 1763 Sep, History of CVA with residual deficit I69.30 [facility] [id number] [place] [address] 80036- 7199 Sep, [facility] [id number] [place] [address] 61573- 6281 Sep, [facility] [id number] [place] [address] 70613- 1659 Sep, Back pain M54.9 [facility] [id number] [place] [address] 91354- 1591 Sep, Seizure disorder G40.909 [facility] [id number] [place] [address] 45787- 6906 Aug, Back pain M54.9 [facility] [id number] [place] [address] 49015- 4719 18 Aug, 2015 Seizure disorder G40.909 [facility] [id number] [place] [address] 39169- 9086 16 Aug, 2015 Back pain M54.9 [facility] [id number] [place] [address] 08432- 8800 14 Aug, 2015 Heart failure, unspecified I50.9 [facility] [address] [address]- 7470 14 Aug, 2015 Medication monitoring encounter Z51.81 [facility] [id number] [place] [address] 61168- 8160 Jul, [facility] [id number] [place] [address] 95856- 7706 Jul, Seizure disorder G40.909 [facility] [id number] [place] [address] 32218- 6062 Jul, Back pain M54.9 [facility] [id number] [place] [address] 55912- 8587 Jun, [facility] [id number] [place] [address] 24423- 3292 Jun, [facility] [id number] [place] [address] 94585- 7736 Jun, Mental status change R41.82 ; History of CVA with residual deficit I69.30 ; Back pain M54.9 and Seizure disorder G40.909 [place] [address] [place] [id number] [place] [address] 31337- 4411 Jun, [facility] [address] [place] [address] 78219- 7027 May, [facility] [id number] [place] [address] 25424- 8077 Apr, [facility] [id number] [place] [address] 19805- 6420 Apr, Medication monitoring encounter Z51.81 [facility] [id number] [place] [address] 25628- 3807 Mar, Vomiting R11.10 [facility] [address] [place] [address] 34121- 4319 Mar, [facility] [place] [facility] [address] [id number] [place] [address]- 2284 Feb, [facility] [address] [id number] [place] [address]- 0905 Feb, UTI (urinary tract infection) 599.0 [facility] [address] [id number] [place] [address]- 5686 Jan, [facility] [address] [id number] [place] [address]- 3076 Jan, [facility] [address] [id number] [place] [address]- 4616 Jan, [facility] [address] [id number] [place] [address]- 6253 Dec, [facility] [address] [id number] [place] [address]- 1727 Dec, [facility] [address] [id number] [place] [address]- 2855 Dec, [facility] [address] [id number] [place] [address]- 0575 Dec, [facility] [address] [id number] [place] [address]- 3334 Nov, UNKNOWN Nov, [facility] [address] [id number] [place] [address]- 2546 October, [facility] [address] [id number] [place] [address]- 3466 Sep, [facility] [address] [id number] [place] [address]- 7556 Sep, [facility] [address] [id number] [place] [address]- 9546 Aug, [facility] [address] [id number] [place] [address]- 2546 Aug, [facility] [address] [id number] [place] [address]- 4197 19 Jul, 2014 [facility] [place] [facility] [address] [id number] [place] [address]- 9226 Jul, [facility] [place] [facility] [address] [id number] [place] [address]- 4026 Jul, 2014 [facility] [place] [facility] [address] [id number] [place] [address]- 5396 Jul, [facility] [place] [facility] [address] [id number] [place] [address]- 1441 Jul, [facility] [place] [facility] [address] [id number] [place] [address]- 9840 Jun, [facility] [place] [facility] [address] [id number] [place] [address]- 7251 Jun, [facility] [place] [facility] [address] [id number] [place] [address]- 6884 Jun, [facility] [place] [facility] [address] [id number] [place] [address]- 1282 Jun, [facility] [place] [facility] [address] [id number] [place] [address]- 8814 Jun, [facility] [place] [facility] [address] [id number] [place] [address]- 7639 Jun, [facility] [place] [facility] [address] [id number] [place] [address]- 67[address] Jun, [facility] [place] [facility] [address] [id number] [place] [address] Jun, [facility] [place] [facility] [address] [id number] [place] [address] Jun, [facility] [place] [facility] [address] [id number] [place] [address] Jun, [facility] [place] [facility] [address] [id number] [place] [address] Jun, [facility] [place] [facility] [address] [id number] [place] [address] Jun, [facility] [place] [facility] [address] [id number] [place] [address] Jun, [facility] [place] [facility] [address] [id number] [place] [address] Jun, [facility] [place] [facility] [address] [id number] [place] [address] Jun, [facility] [place] [facility] [address] [id number] [place] [address] Jun, [facility] [place] [facility] [address] [id number] [place] [address] Jun, [facility] [place] [facility] [address] [id number] [place] [address] Jun, [facility] [place] [facility] [address] [id number] [place] [address] May, [facility] [place] [facility] [address] [id number] [place] [address] 30 May, 2014 [facility] [place] [facility] [address] [id number] [place] [address] 30 May, 2014 [facility] [place] [facility] [address] [id number] [place] [address] 30 May, 2014 [facility] [place] [facility] [address] [id number] [place] [address] 19 May, 2014 [facility] [place] [facility] [address] [id number] [place] [address] 16 May, 2014 [facility] [place] [facility] [address] [id number] [place] [address] 16 May, 2014 [facility] [place] [facility] [address] [id number] [place] [address] 15 May, 2014 [facility] [place] [facility] [address] [id number] [address] May, [facility] [address] [facility] [place] [id number] May, [facility] [place] [facility] [address] [id number] [place] [address] May, [facility] [place] [facility] [address] [id number] [place] [address] May, [facility] [place] [facility] [address] [id number] [place] [address]- [address] May, [facility] [place] [facility] [address] [id number] [place] [address] Apr, [facility] [place] [facility] [address] [id number] [place] [address] Apr, [facility] [place] [facility] [address] [id number] [place] [address] Apr, [facility] [place] [facility] [address] [id number] [place] [address] Apr, [facility] [place] [facility] [address] [id number] [place] [address] Apr, [facility] [place] [facility] [address] [id number] [place] [address] Apr, [facility] [place] [facility] [address] [id number] [address] Mar, [facility] [place] [facility] [address] [id number] [address] Mar, [facility] [place] [facility] [address] [id number] [place] [address] Mar, [facility] [place] [facility] [address] [id number] [place] [address] Mar, [facility] [place] [facility] [address] [id number] [place] [address] Mar, [facility] [place] [facility] [address] [id number] [place] [address] 08 Mar, 2014 [facility] [address] [id number] [place] [address] 24 Feb, 2014 [facility] [place] [facility] [address] [id number] [place] [address] 24 Feb, 2014 [facility] [place] [facility] [address] [id number] [place] [address] Feb, [facility] [place] [facility] [address] [id number] [place] [address] Feb, [facility] [place] [facility] [address] [id number] [place] [address] Feb, [facility] [place] [facility] [address] [id number] [place] [address] Feb, [facility] [address] [id number] [place] [address] 49[address] Feb, [facility] [address] [id number] [place] [address] 4556 Feb, [facility] [place] [facility] [address] [id number] [place] [address] 1727 Feb, [facility] [address] [id number] [place] [address] 8[address] Feb, [facility] [address] [place] [id number] Feb, [facility] [place] [facility] [address] [id number] [address] Feb, [facility] [place] [facility] [address] [id number] [place] [address] 0382 Jan, [facility] [place] [facility] [address] [id number] [place] [address] 2659 Jan, [facility] [place] [facility] [address] [id number] [place] [address] 7755 Dec, [facility] [place] [facility] [address] [id number] [place] [address] 290[address] Dec, 2013 [facility] [place] [facility] [address] [id number] [place] [address] Dec, 2013 [facility] [place] [facility] [address] [id number] [place] [address] 2916 Dec, 2013 [facility] [place] [facility] [address] [id number] [place] [address]- 0516 Dec, 2013 [facility] [place] [facility] [address] [id number] [place] [address] 3279 Dec, 2013 [facility] [place] [facility] [address] [id number] [place] [address] 3902 Dec, [facility] [place] [facility] [address] [id number] [place] [address]- 6835 Dec, [facility] [place] [facility] [address] [id number] [place] [address]- 6533 Dec, [facility] [place] [facility] [address] [id number] [place] [address]- 6619 Dec, [facility] [place] [facility] [address] [id number] [place] [address]- 8086 Nov, [facility] [place] [facility] [address] [id number] [place] [address]- 6685 Nov, [facility] [place] [facility] [address] [id number] [place] [address]- 9627 Nov, [facility] [place] [facility] [address] [id number] [place] [address]- 3376 Nov, [facility] [place] [facility] [address] [id number] [place] [address]- 4186 Nov, [facility] [place] [facility] [address] [id number] [place] [address]- 8352 Nov, [facility] [place] [facility] [address] [id number] [place] [address]- 2715 Nov, [facility] [place] [facility] [address] [id number] [place] [address]- 4590 Nov, [facility] [place] [facility] [address] [id number] [place] [address]- 6314 Nov, [facility] [place] [facility] [address] [id number] [place] [address]- 2956 Nov, [facility] [place] [facility] [address] [id number] [place] [address]- 1105 Nov, [facility] [place] [facility] [address] [id number] [place] [address]- 5834 Nov, [facility] [place] [facility] [address] [id number] [place] [address]- 8316 Nov, [facility] [place] [facility] [address] [id number] [place] [address]- 8762 Nov, [facility] [place] [facility] [address] [id number] [place] [address] 0632 October, [facility] [place] [facility] [address] [id number] [place] [address]- 7846 October, [facility] [place] [facility] [address] [id number] [place] [address]- 4438 October, [facility] [place] [facility] [address] [id number] [place] [address]- 9495 October, [facility] [place] [facility] [address] [id number] [place] [address]- 9901 October, [facility] [place] [facility] [address] [id number] [place] [address]- 5918 October, [facility] [place] [facility] [address] [id number] [place] [address]- 4225 October, [facility] [place] [facility] [address] [id number] [place] [address]- 2589 October, [facility] [place] [facility] [address] [id number] [place] [address]- 7065 October, [facility] [place] [facility] [address] [id number] [place] [address]- 9761 October, [facility] [place] [facility] [address] [id number] [place] [address]- 2207 Sep, [facility] [place] [facility] [address] [id number] [place] [address]- 8442 Sep, [facility] [place] [facility] [address] [id number] [place] [address]- 9248 Sep, [facility] [place] [facility] [address] [id number] [place] [address]- 7218 Sep, [facility] [place] [facility] [address] [id number] [place] [address]- 4756 Sep, [facility] [place] [facility] [address] [id number] [place] [address]- 9542 Sep, [facility] [place] [facility] [address] [id number] [place] [address]- 4515 Sep, [facility] [place] [facility] [address] [id number] [place] [address]- 4943 Sep, [facility] [place] [facility] [address] [id number] [place] [address]- 8989 Sep, [facility] [place] [facility] [address] [id number] [place] [address]- 8851 Sep, [facility] [place] [facility] [address] [id number] [place] [address]- 2357 Aug, [facility] [place] [facility] [address] [id number] [place] [address]- 5619 Aug, [facility] [place] [facility] [address] [id number] [place] [address]- 0230 Aug, [facility] [place] [facility] [address] [id number] [place] [address]- 1911 Aug, [facility] [place] [facility] [address] [id number] [place] [address]- 5050 Aug, [facility] [place] [facility] [address] [id number] [place] [address]- 4984 Aug, [facility] [place] [facility] [address] [id number] [place] [address]- 7465 Aug, [facility] [place] [facility] [address] [id number] [place] [address]- 5996 Aug, [facility] [place] [facility] [address] [id number] [place] [address]- 0202 Aug, [facility] [place] [facility] [address] [id number] [place] [address]- 1880 Jul, [facility] [place] [facility] [address] [id number] [place] [address]- 8811 Jul, [facility] [place] [facility] [address] [id number] [place] [address]- 5510 Jul, [facility] [place] [facility] [address] [id number] [place] [address]- 0004 Jul, [facility] [place] [facility] [address] [id number] [place] [address]- 6474 Jul, [facility] [place] [facility] [address] [id number] [place] [address]- 0549 Jul, [facility] [place] [facility] [address] [id number] [place] [address]- 3737 Jul, [facility] [place] [facility] [address] [id number] [place] [address]- 2789 Jul, [facility] [place] [facility] [address] [id number] [place] [address]- 8819 Jul, [facility] [place] [facility] [address] [id number] [place] [address]- 0335 Jul, [facility] [place] [facility] [address] [id number] [place] [address]- 9106 06 Jul, 2013 [facility] [place] [facility] [address] [id number] [place] [address]- 3026 Jul, [facility] [place] [facility] [address] [id number] [place] [address]- 4656 Jul, 2013 [facility] [place] [facility] [address] [id number] [place] [address]- 5206 Jul, 2013 [facility] [place] [facility] [address] [id number] [place] [address]- 5298 Jul, [facility] [place] [facility] [address] [id number] [place] [address]- 3596 Jul, [facility] [place] [facility] [address] [id number] [place] [address]- 9646 Jun, [facility] [place] [facility] [address] [id number] [place] [address]- 6798 Jun, [facility] [place] [facility] [address] [id number] [place] [address]- 0858 Jun, [facility] [place] [facility] [address] [id number] [place] [address]- 8465 Jun, [facility] [place] [facility] [address] [facility] [id number] [place] [address]- 7572 Jun, [facility] [place] [facility] [address] [id number] [place] [address]- 5428 Jun, [facility] [place] [facility] [address] [id number] [place] [address]- 6421 May, [facility] [place] [facility] [address] [id number] [place] [address]- 3176 May, [facility] [place] [facility] [address] [id number] [place] [address]- 1266 May, [facility] [place] [facility] [address] [id number] [place] [address]- 9001 May, [facility] [place] [facility] [address] [id number] [place] [address]- 9444 Apr, [facility] [place] [facility] [address] [id number] [place] [address]- 0711 Apr, [facility] [place] [facility] [address] [id number] [place] [address]- 8555 Apr, [facility] [place] [facility] [address] [id number] [place] [address]- 1958 Apr, [facility] [place] [facility] [address] [id number] [place] [address]- 2630 Apr, [facility] [place] [facility] [address] [id number] [place] [address]- 6476 Apr, [facility] [place] [facility] [address] [id number] [place] [address]- 8944 Apr, [facility] [place] [facility] [address] [id number] [address]- 5441 Apr, [facility] [place] [facility] [address] [id number] [place] [address]- 1611 Apr, [facility] [place] [facility] [address] [id number] [place] [address]- 6842 Apr, [facility] [place] [facility] [address] [id number] [address]- 6032 Apr, [facility] [place] [facility] [address] [id number] [address]- 9066 Apr, [facility] [place] [facility] [address] [id number] [place] [address]- 5287 Mar, [facility] [place] [facility] [address] [id number] [address]- 7541 28 Mar, 2013 [facility] [place] [facility] [address] [id number] [address]- 4623 16 Mar, 2013 [facility] [place] [facility] [address] [id number] [place] [address]- 7762 16 Mar, 2013 [facility] [address] [id number] [place] [address]- 0286 15 Mar, 2013 [facility] [place] [facility] [address] [id number] [place] [address]- 0246 15 Mar, 2013 [facility] [place] [facility] [address] [id number] [place] [address]- 9046 27 Feb, 2012 [facility] [place] [facility] [address] [id number] [place] [address] 2546 25 Feb, 2012 [facility] [place] [facility] [address] [id number] [place] [address]- 6979 25 Feb, 2012 [facility] [place] [facility] [address] [id number] [place] [address]- 9618 23 Feb, 2012 [facility] [address] [id number] [place] [address]- 7632 17 Feb, 2012 [facility] [place] [facility] [address] [id number] [place] [address]- 8886 10 Feb, 2013 [facility] [place] [facility] [address] [id number] [place] [address]- 6813 04 Feb, 2013 [facility] [place] [facility] [address] [id number] [place] [address]- 1127 30 Jan, 2013 [facility] [place] [facility] [address] [id number] [place] [address]- 0187 20 Jan, 2013 [facility] [place] [facility] [address] [id number] [place] [address]- 2540 15 Jan, 2013 [facility] [place] [facility] [address] [id number] [place] [address]- 8143 14 Jan, 2013 [facility] [place] [facility] [address] [id number] [place] [address]- 9987 Jan, [facility] [place] [facility] [address] [id number] [place] [address]- 9253 Jan, [facility] [place] [facility] [address] [id number] [place] [address]- 1097 Jan, [facility] [place] [facility] [address] [id number] [place] [address]- 3813 Dec, [facility] [place] [facility] [address] [id number] [place] [address]- 7634 Dec, [facility] [place] [facility] [address] [id number] [place] [address]- 8544 Dec, [facility] [place] [facility] [address] [id number] [place] [address]- 9174 Dec, [facility] [place] [facility] [address] [id number] [place] [address]- 1542 Dec, [facility] [place] [facility] [address] [id number] [place] [address]- 0217 Dec, [facility] [place] [facility] [address] [id number] [place] [address]- 5566 Nov, [facility] [place] [facility] [address] [id number] [place] [address]- 0471 Nov, [facility] [place] [facility] [address] [id number] [place] [address]- 6133 Nov, [facility] [place] [facility] [address] [id number] [place] [address]- 7894 Nov, [facility] [place] [facility] [address] [id number] [place] [address]- 5269 October, [facility] [place] [facility] [address] [id number] [place] [address]- 4326 October, [facility] [place] [facility] [address] [id number] [place] [address]- 0221 October, [facility] [place] [facility] [address] [id number] [place] [address]- 6434 October, [facility] [place] [facility] [address] [id number] [place] [address]- 1977 30 Sep, 2012 [facility] [address] [id number] [place] [address]- 3643 Sep, [facility] [address] [id number] [place] [address]- 0161 16 Sep, 2012 [facility] [place] [facility] [address] [facility] [id number] [place] [address]- 5883 Sep, [facility] [place] [facility] [address] [id number] [place] [address]- 8323 Sep, [facility] [address] [id number] [place] [address]- 1554 Sep, [facility] [address] [facility] [id number] [place] [address]- 2487 Sep, [facility] [address] [facility] [id number] [place] [address]- 9804 Sep, [facility] [place] [facility] [address] [id number] [place] [address]- 7383 Aug, [facility] [address] [id number] [place] [address]- 5192 Aug, [facility] [place] [facility] [address] [facility] [id number] [place] [address]- 1828 Aug, [facility] [place] [facility] [address] [id number] [address]- 8665 18 Jul, 2012 [facility] [place] [facility] [address] [id number] [address]- 5703 08 Jul, 2012 [facility] [place] [facility] [address] [id number] [place] [address]- 6958 07 Jul, 2012 [facility] [place] [facility] [address] [id number] [place] [address]- 8901 06 Jul, 2012 [facility] [place] [facility] [address] [facility] [id number] [place] [address]- 9433 05 Jul, 2012 [facility] [place] [facility] [address] [id number] [place] [address]- 0266 Jun, [facility] [place] [facility] [address] [id number] [place] [address]- 0034 Jun, [facility] [place] [facility] [address] [id number] [place] [address]- 4086 Jun, [facility] [place] [facility] [address] [id number] [place] [address]- 8318 May, [facility] [place] [facility] [address] [id number] [place] [address]- 3845 May, [facility] [place] [facility] [address] [id number] [place] [address]- 9442 May, [facility] [place] [facility] [address] [id number] [place] [address]- 4911 May, [facility] [place] [facility] [address] [id number] [place] [address]- 0372 May, [facility] [place] [facility] [address] [id number] [place] [address]- 9968 May, [facility] [place] [facility] [address] [id number] [place] [address]- 4218 May, [facility] [place] [facility] [address] [id number] [place] [address]- 2452 Apr, [facility] [place] [facility] [address] [id number] [place] [address]- 1493 Apr, [facility] [place] [facility] [address] [id number] [place] [address]- 4389 Apr, [facility] [place] [facility] [address] [id number] [place] [address]- 2670 Apr, [facility] [place] [facility] [address] [id number] [place] [address]- 3663 Apr, [facility] [place] [facility] [address] [id number] [place] [address]- 3139 Apr, [facility] [place] [facility] [address] [id number] [place] [address]- 5291 Apr, [facility] [place] [facility] [address] [id number] [place] [address]- 8973 Apr, [facility] [place] [facility] [address] [id number] [place] 3223 Apr, [facility] [place] [facility] [address] [id number] [place] [address]- 5741 Apr, [facility] [place] [facility] [address] [id number] [place] [address]- 0042 Apr, [facility] [place] [facility] [address] [id number] [place] [address]- 5787 Mar, [facility] [place] [facility] [address] [id number] [place] [address]- 9477 Mar, [facility] [place] [facility] [address] [id number] [address]- 3588 Mar, [facility] [place] [facility] [address] [id number] [place] [address]- 0290 Mar, [facility] [place] [facility] [address] [id number] [address]- 1062 Mar, [facility] [place] [facility] [address] [id number] [address]- 7836 Mar, [facility] [place] [facility] [address] [id number] [address]- 5746 Mar, [facility] [place] [facility] [address] [id number] [place] [address]- 8122 Mar, [facility] [place] [facility] [address] [id number] [place] 4636 Mar, [facility] [place] [facility] [address] [id number] [place] 4905 Mar, [facility] [place] [facility] [address] [id number] [place] [address]- 5350 04 Mar, 2012 [facility] [place] [facility] [address] [id number] [place] [address] 2546 2011 [facility] [place] [facility] [address] [id number] [place] [address] 2546 27 Feb, 2011 [facility] [place] [facility] [address] [id number] [place] [address] 2546 27 Feb, 2011 [facility] [place] [facility] [address] [id number] [place] [address] 2546 26 Feb, 2011 [facility] [place] [facility] [address] [id number] [place] [address]- 1146 24 Feb, 2011 [facility] [place] [facility] [address] [id number] [place] [address] 2546 19 Feb, 2011 [facility] [place] [facility] [address] [id number] [place] [address]- 1676 18 Feb, 2011 [facility] [place] [facility] [address] [id number] [place] [address] 2547 18 Feb, 2012 [facility] [place] [facility] [address] [id number] [place] [address]- 8795 18 Feb, 2012 [facility] [place] [facility] [address] [id number] [place] [address] 2542 30 Jan, 2012 [facility] [place] [facility] [address] [id number] [place] [address] 2546 Jan, [facility] [place] [facility] [address] [id number] [place] [address] 2545 Jan, [facility] [place] [facility] [address] [id number] [place] [address] 2546 Jan, [facility] [place] [facility] [address] [id number] [place] [address] 2546 Dec, [facility] [place] [facility] [address] [id number] [place] [address] Dec, [facility] [place] [facility] [address] [id number] [place] [address] Dec, [facility] [place] [facility] [address] [id number] [place] [address] Dec, [facility] [place] [facility] [address] [id number] [place] [address] Dec, [facility] [place] [facility] [address] [id number] [place] [address] Dec, [facility] [place] [facility] [address] [id number] [place] [address] Dec, [facility] [place] [facility] [address] [id number] [place] [address] Dec, [facility] [place] [facility] [address] [id number] [place] [address] Dec, [facility] [place] [facility] [address] [id number] [place] [address] Dec, [facility] [place] [facility] [address] [id number] [place] [address] Dec, [facility] [place] [facility] [address] [id number] [place] [address] Dec, [facility] [place] [facility] [address] [id number] [place] [address] Dec, [facility] [place] [facility] [address] [id number] [place] [address] Dec, [facility] [place] [facility] [address] [id number] [place] [address] Nov, [facility] [place] [facility] [address] [id number] [place] [address]- [address] Nov, [facility] [place] [facility] [address] [id number] [place] [address]- [address] Nov, [facility] [place] [facility] [address] [id number] [place] [address]- [address] 07 Nov, 2011 [facility] [place] [facility] [address] [id number] [place] [address] Nov, [facility] [place] [facility] [address] [id number] [place] [address]- [address] Nov, [facility] [place] [facility] [address] [id number] [place] [address] October, [facility] [place] [facility] [address] [id number] [place] [address] October, [facility] [place] [facility] [address] [id number] [place] [address]- [address] October, [facility] [place] [facility] [address] [id number] [place] [address]- [address] October, [facility] [place] [facility] [address] [id number] [place] [address]- [address] Sep, [facility] [place] [facility] [address] [id number] [place] [address] 17 Sep, 2011 [facility] [place] [facility] [address] [id number] [place] [address]- [address] Sep, [facility] [place] [facility] [address] [id number] [place] [address]- [address] Sep, [facility] [place] [facility] [address] [id number] [place] [address] 1006 Sep, [facility] [place] [facility] [address] [id number] [place] [address] Aug, [facility] [place] [facility] [address] [id number] [place] [address]- [address] Aug, [facility] [place] [facility] [address] [id number] [place] [address]641 Aug, [facility] [place] [facility] [address] [id number] [place] [address] 9431 Aug, [facility] [place] [facility] [address] [id number] [place] [address]- [address] 13 Aug, 2011 [facility] [address] [id number] [place] [address] Aug, [facility] [address] [id number] [place] [address] 2546 Aug, [facility] [address] [id number] [place] [address]- [address] 16 Jul, 2011 [facility] [address] [id number] [place] [address] Jul, [facility] [address] [id number] [place] [address] Jul, [facility] [address] [facility] [id number] [place] [address] Jul, [facility] [address] [id number] [place] [address] Jun, [address] [id number] Jun, [facility] [address] [id number] [place] [address] Jun, [facility] [address] [facility] [id number] [address] Jun, [facility] [address] [facility] [id number] [place] [address]- 9470 Jun, [facility] [address] [facility] [id number] [place] [address] Jun, [facility] [address] [facility] [id number] [place] [address]- [address] Jun, [facility] [address] [facility] [id number] [place] [address]- [address] Jun, [facility] [address] [facility] [id number] [place] [address] May, [facility] [place] [facility] [address] [id number] [place] [address]- 9810 May, [facility] [place] [facility] [address] [id number] [place] [address]- 1553 May, [facility] [place] [facility] [address] [id number] [place] [address]- 6228 May, [facility] [place] [facility] [address] [id number] [place] [address]- [address]484 May, [facility] [place] [facility] [address] [id number] [place] [address]- 7820 May, [facility] [place] [facility] [address] [id number] [place] [address]- 2226 May, [facility] [place] [facility] [address] [id number] [place] [address]- 9424 Apr, [facility] [place] [facility] [address] [id number] [place] [address]- 9431 Apr, [facility] [place] [facility] [address] [id number] [place] [address]- 8589 Apr, [facility] [place] [facility] [address] [id number] [place] [address]- 8080 Mar, [facility] [place] [facility] [address] [id number] [place] [address]- 9310 20 Mar, 2011 [facility] [place] [facility] [address] [id number] [place] [address]- [address]335 14 Mar, 2011 [facility] [place] [facility] [address] [id number] [place] [address]- 6928 11 Mar, 2011 [facility] [place] [facility] [address] [id number] [place] [address]- 3890 10 Mar, 2011 [facility] [place] [facility] [address] [id number] [place] [address]- 2451 10 Mar, 2011 [facility] [place] [facility] [address] [id number] [place] [address]- 7775 10 Mar, 2011 [facility] [place] [facility] [address] [id number] [place] [address]- 6299 11 Jan, 2011 [facility] [place] [facility] [address] [id number] [place] 27 May, 2010 [facility] [place] [facility] [address] [id number] [place] [address] 2546 21 May, 2010 [facility] [place] [facility] [address] [id number] [place] [address] 2546 13 May, 2010 [facility] [place] [facility] [address] [id number] [place] [address]- 5852 13 May, 2010 [facility] [place] [facility] [address] [id number] [place] [address]- 0629 10 May, 2010 [facility] [place] [facility] [address] [id number] [place] [address]- 6734 06 May, 2010 [facility] [place] [facility] [address] [id number] [place] [address]- 3476 29 Apr, 2010 [facility] [place] [facility] [address] [id number] [place] [address]- 4509 26 Apr, 2010 [facility] [place] [facility] [address] [id number] [place] [id number] 19 Apr, 2010 [facility] [place] [facility] [address] [id number] [address] 18 Apr, 2010 [facility] [place] [facility] [address] [id number] [place] [address] 15 Apr, 2010 [facility] [place] [facility] [address] [id number] [place] [address] 12 Apr, 2010 [facility] [place] [facility] [address] [id number] [place] [address] 12 Apr, 2010 [facility] [place] [facility] [address] [id number] [place] [address] 05 Apr, 2010 [facility] [place] [facility] [address] [id number] [address] Apr, [facility] [address] [id number] [address] Apr, [facility] [id number] [address] Mar, [facility] [address] [id number] [address] Mar, [facility] [id number] [address] Mar, [facility] [id number] [address] Mar, [facility] [id number] [address] Mar, [facility] [id number] [address] Dec, [facility] [id number] [address] Nov, IMMUNIZATIONS No Known Immunizations SOCIAL HISTORY Never Assessed REASON FOR VISIT DNR PLAN OF CARE VITAL SIGNS MEDICATIONS Unknown Medications RESULTS No Results PROCEDURES No Known procedures INSTRUCTIONS MEDICATIONS ADMINISTERED No Known Medications MEDICAL (GENERAL) HISTORY Type Description Date Medical [...] surgery and skin graft, cholecysectomy Hospitalization History [facility] [place] [facility] 12/2016
--- OUTSIDE RECORDS SUMMARY | 2017-09-19 03:15 | XMS REPORT ---
Author Author NAHOMY BETH [facility] Address [address] [place] [address] Care Team Providers Care Security Checker Name Role Phone NAHOMY BETH Unavailable PROBLEMS Type Condition ICD9-CM Code [id number] Code Onset Dates Condition Status SNOMED Code Problem Insomnia, unspecified type G47.00 Active 567609979 Problem Chronic kidney disease, unspecified stage N18.9 Active 608965723 Problem Perennial allergic rhinitis, unspecified allergic rhinitis trigger J30.89 Active 403219414 Problem Seizure disorder G40.909 Active 700820909 Problem Back pain M54.9 Active 120368614 Problem History of CVA with residual deficit I69.30 Active 349691552 Problem Age-related osteoporosis without current pathological fracture M81.0 Active 24200385 Problem Personality disorder F60.9 Active 73584246 Problem History of colon polyps Z86.010 Active 288686134 Problem Gastroesophageal reflux disease without esophagitis K21.9 Active 437052936 Problem Factitious disorder imposed on self, recurrent episode F68.10 Active 21937933 Problem Anemia, unspecified type D64.9 Active 373639910 ALLERGIES Substance Reaction Event Type Date Status Vibramycin Unknown Drug Allergy Jul, Active Tegretol Unknown Drug Allergy Jul, Active SulfADIAZINE Unknown Drug Allergy Jul, Active Penicillin V Potassium Unknown Drug Allergy Jul, Active Codeine Phosphate Unknown Drug Allergy Jul, Active Aspirin Unknown Drug Allergy Jul, Active SOCIAL HISTORY Never Assessed PLAN OF CARE Activity Details Follow Up Regular AR visit Reason: VITAL SIGNS Height 62 in 2016-08-06 Weight 120 lbs 2016-08-06 Temperature 97.5 degrees Fahrenheit 2016-08-06 Heart Rate 76 bpm 2016-08-06 Respiratory Rate 20 2016-08-06 BMI 21.95 kg/m2 2016-08-06 Blood pressure systolic 120 mmHg 2016-08-06 Blood pressure diastolic 70 mmHg 2016-08-06 MEDICATIONS Medication Instructions Dosage Frequency Start Date End Date Duration Status Vitamin D (Ergocalciferol) 92562 UNIT Orally once weekly 1 capsule Active Melatonin 3 MG Orally Once a day 1 tablet at bedtime as needed with food 24h Active Atorvastatin Calcium 40 MG TAKE 1 TABLET BY MOUTH AT BEDTIME 30 Active Duloxetine HCl 30 MG TAKE 1 CAPSULE BY MOUTH EVERY DAY 30 Active Clorazepate Dipotassium 3.75 MG Orally Twice a day 2 tablets 12h 28 days Active Coumadin 1 MG Orally mon, wed and sat. 1/2 tablet Active Nitro-Dur 0.1 MG/HR Transdermal Once a day 1 patch to skin remove after 12 hours 24h Active Lasix 20 MG Orally Once a day 1 tablet 24h Active Folic Acid 1 MG Orally Once a day 1 tablet 24h Active Omeprazole 20 MG TAKE 1 CAPSULE BY MOUTH EVERY DAY 30 Active Coumadin 1 MG Orally , sat, sat, sun. 1 tablet Active Fentanyl 75 MCG/HR Transdermal, every 72 hours 1 patch to skin Jul, 30 days Active Metoprolol Tartrate 25 MG Orally Twice a day 1 tablet with food 12h Active Fioricet 50-300-40 MG Orally every 4 hrs 1 capsule as needed 4h Active Lamotrigine 100 MG TAKE 1 TABLET BY MOUTH TWICE DAILY 30 Active Potassium N/A Orally. 8mg twice a day 1 tablet 12h Active Dilantin 100 mg Orally at bedtime 1 capsule Active Topamax 100 MG Orally Twice a day 1 tablet 12h Active Gabapentin 400 MG Orally at bedtime 1 capsule Active RESULTS No Results PROCEDURES Procedure Date Ordered Result Body Site [facility] VISIT ESTABLISHED PATIENT Aug 06, 2016 IMMUNIZATIONS No Known Immunizations MEDICAL (GENERAL) HISTORY [...] surgery and skin graft, cholecysectomy Hospitalization History [facility] [place] [facility] 12/2016
--- OUTSIDE RECORDS SUMMARY | 2017-09-19 03:15 | XMS REPORT ---
Author Author IRENE PATEL Organization [facility] Address [address] [place] [address] Care Team Providers Care Oven Unloader Name Role Phone IRENE PATEL Unavailable PROBLEMS Type Condition ICD9-CM Code [id number] Code Onset Dates Condition Status SNOMED Code Problem Insomnia, unspecified type G47.00 Active 497510021 Problem Chronic kidney disease, unspecified stage N18.9 Active 332847589 Problem Perennial allergic rhinitis, unspecified allergic rhinitis trigger J30.89 Active 220887843 Problem Seizure disorder G40.909 Active 296104422 Problem Back pain M54.9 Active 198321628 Problem History of CVA with residual deficit I69.30 Active 619576702 Problem Age-related osteoporosis without current pathological fracture M81.0 Active 08821395 Problem Personality disorder F60.9 Active 79605685 Problem History of colon polyps Z86.010 Active 401394758 Problem Gastroesophageal reflux disease without esophagitis K21.9 Active 195922532 Problem Factitious disorder imposed on self, recurrent episode F68.10 Active 42927835 Problem Anemia, unspecified type D64.9 Active 300279448 ALLERGIES Unknown Allergies SOCIAL HISTORY No smoking Hx information available PLAN OF CARE VITAL SIGNS MEDICATIONS Medication Instructions Dosage Frequency Start Date End Date Duration Status Clorazepate Dipotassium 3.75 MG Orally Twice a day 2 tablets 12h 28 days Active RESULTS No Results PROCEDURES No Known procedures IMMUNIZATIONS No Known Immunizations
--- OUTSIDE RECORDS SUMMARY | 2017-09-19 03:15 | XMS REPORT ---
Author Author NAHOMY BETH Organization [facility] Address [address] [place] [address] Care Team Providers Care Prefabricator Name Role Phone NAHOMY BETH Unavailable PROBLEMS Type Condition ICD9-CM Code [id number] Code Onset Dates Condition Status SNOMED Code Problem Insomnia, unspecified type G47.00 Active 802100397 Problem Chronic kidney disease, unspecified stage N18.9 Active 971903219 Problem Perennial allergic rhinitis, unspecified allergic rhinitis trigger J30.89 Active 418030081 Problem Seizure disorder G40.909 Active 277734591 Problem Back pain M54.9 Active 686893171 Problem History of CVA with residual deficit I69.30 Active 567470669 Problem Age-related osteoporosis without current pathological fracture M81.0 Active 77156244 Problem Personality disorder F60.9 Active 01192017 Problem History of colon polyps Z86.010 Active 816389624 Problem Gastroesophageal reflux disease without esophagitis K21.9 Active 715305189 Problem Factitious disorder imposed on self, recurrent episode F68.10 Active 65167326 Problem Anemia, unspecified type D64.9 Active 578646468 ALLERGIES Unknown Allergies SOCIAL HISTORY No smoking Hx information available PLAN OF CARE Activity Details Follow Up 3 Months Reason: VITAL SIGNS MEDICATIONS Unknown Medications RESULTS No Results PROCEDURES Procedure Date Ordered Related Diagnosis Body Site [facility] VISIT ESTABLISHED PATIENT May 24, 2016 DOMICIL/R-HOME VISIT EST PAT May 24, 2016 IMMUNIZATIONS No Known Immunizations
--- OUTSIDE RECORDS SUMMARY | 2017-09-19 03:16 | XMS REPORT ---
Author Author NAHOMY BETH [facility] Address [address] [place] [address] Care Team Providers Care Clipman Name Role Phone NAHOMY BETH Unavailable PROBLEMS Type Condition ICD9-CM Code [id number] Code Onset Dates Condition Status SNOMED Code Problem Insomnia, unspecified type G47.00 Active 396067157 Problem Chronic kidney disease, unspecified stage N18.9 Active 710292811 Problem Perennial allergic rhinitis, unspecified allergic rhinitis trigger J30.89 Active 012198259 Problem Seizure disorder G40.909 Active 303274246 Problem Back pain M54.9 Active 660877227 Problem History of CVA with residual deficit I69.30 Active 094963918 Problem Age-related osteoporosis without current pathological fracture M81.0 Active 29929133 Problem Personality disorder F60.9 Active 97355405 Problem History of colon polyps Z86.010 Active 494612590 Problem Gastroesophageal reflux disease without esophagitis K21.9 Active 912569018 Problem Factitious disorder imposed on self, recurrent episode F68.10 Active 08215816 Problem Anemia, unspecified type D64.9 Active 892579380 ALLERGIES No Information SOCIAL HISTORY Never Assessed PLAN OF CARE VITAL SIGNS MEDICATIONS Unknown Medications RESULTS Name Result Date Reference Range Mammogram, Bilateral Screening 2016-08-23 PROCEDURES No Known procedures IMMUNIZATIONS No Known [...] surgery and skin graft, cholecysectomy Hospital[place] [facility] [place] [facility] [place]
--- OUTSIDE RECORDS SUMMARY | 2017-09-19 03:16 | XMS REPORT ---
Author Author NAHOMY BETH Organization [facility] Address [address] [place] [address] Care Team Providers Care Lead Mobile Developer Name Role Phone NAHOMY BETH Unavailable PROBLEMS Type Condition ICD9-CM Code VMR62-ZI Code Onset Dates Condition Status SNOMED Code Problem Insomnia, unspecified type G47.00 Active 594906170 Problem Chronic kidney disease, unspecified stage N18.9 Active 695178726 Problem Perennial allergic rhinitis, unspecified allergic rhinitis trigger J30.89 Active 389635772 Problem Seizure disorder G40.909 Active 152924510 Problem Back pain M54.9 Active 563098631 Problem History of CVA with residual deficit I69.30 Active 922163546 Problem Age-related osteoporosis without current pathological fracture M81.0 Active 11571301 Problem Personality disorder F60.9 Active 13846728 Problem History of colon polyps Z86.010 Active 883230669 Problem Gastroesophageal reflux disease without esophagitis K21.9 Active 346458962 Problem Factitious disorder imposed on self, recurrent episode F68.10 Active 92591768 Problem Anemia, unspecified type D64.9 Active 310622569 ALLERGIES Unknown Allergies SOCIAL HISTORY No smoking Hx information available PLAN OF CARE Activity Details Follow Up 4 Months Reason: VITAL SIGNS MEDICATIONS Unknown Medications RESULTS No Results PROCEDURES Procedure Date Ordered Related Diagnosis Body Site [facility] VISIT ESTABLISHED PATIENT Mar 29, 2016 DOMICIL/R-HOME VISIT EST PAT Mar 29, 2016 IMMUNIZATIONS No Known Immunizations
--- OUTSIDE RECORDS SUMMARY | 2017-09-19 03:17 | XMS REPORT ---
Author Author IRENE PATEL Organization [facility] Address [address] [place] [address] Care Team Providers Care Environmental Services Project Manager Name Role Phone IRENE PATEL Unavailable PROBLEMS Type Condition ICD9-CM Code KSJ33-LR Code Onset Dates Condition Status SNOMED Code Problem Insomnia, unspecified type G47.00 Active 885101812 Problem Chronic kidney disease, unspecified stage N18.9 Active 787505600 Problem Perennial allergic rhinitis, unspecified allergic rhinitis trigger J30.89 Active 981913997 Problem Seizure disorder G40.909 Active 378018496 Problem Back pain M54.9 Active 419366282 Problem History of CVA with residual deficit I69.30 Active 060245859 Problem Age-related osteoporosis without current pathological fracture M81.0 Active 76685392 Problem Personality disorder F60.9 Active 74250642 Problem History of colon polyps Z86.010 Active 916706255 Problem Gastroesophageal reflux disease without esophagitis K21.9 Active 046291036 Problem Factitious disorder imposed on self, recurrent episode F68.10 Active 33557457 Problem Anemia, unspecified type D64.9 Active 811832118 ALLERGIES No Information SOCIAL HISTORY Never Assessed [...] surgery and skin graft, cholecysectomy [place] [facility] [place] [facility] [place]
--- OUTSIDE RECORDS SUMMARY | 2017-09-19 03:17 | XMS REPORT ---
Author Author NAHOMY BETH [facility] Address [address] [place] [address] Care Team Providers Care Buffing Line Set Up Worker Name Role Phone NAHOMY BETH Unavailable PROBLEMS Type Condition ICD9-CM Code XFD85-[id number] Code Onset Dates Condition Status SNOMED Code Problem Insomnia, unspecified type G47.00 Active 637788870 Problem Chronic kidney disease, unspecified stage N18.9 Active 695697143 Problem Perennial allergic rhinitis, unspecified allergic rhinitis trigger J30.89 Active 932682040 Problem Seizure disorder G40.909 Active 700424832 Problem Back pain M54.9 Active 171884187 Problem History of CVA with residual deficit I69.30 Active 854954516 Problem Age-related osteoporosis without current pathological fracture M81.0 Active 10524597 Problem Personality disorder F60.9 Active 74924736 Problem History of colon polyps Z86.010 Active 085234685 Problem Gastroesophageal reflux disease without esophagitis K21.9 Active 085013759 Problem Factitious disorder imposed on self, recurrent episode F68.10 Active 92362383 Problem Anemia, unspecified type D64.9 Active 751422735 ALLERGIES Unknown Allergies SOCIAL HISTORY No smoking Hx information available PLAN OF CARE VITAL SIGNS MEDICATIONS Unknown Medications RESULTS No Results PROCEDURES No Known procedures IMMUNIZATIONS No Known Immunizations
--- OUTSIDE RECORDS SUMMARY | 2017-09-19 03:17 | XMS REPORT ---
Author Author NAHOMY BETH [facility] Address [address] [place] [address] Care Team Providers Care Surgical Technologist Name Role Phone NAHOMY BETH Unavailable PROBLEMS Type Condition ICD9-CM Code GNE73-GH Code Onset Dates Condition Status SNOMED Code Problem Insomnia, unspecified type G47.00 Active 272259328 Problem Chronic kidney disease, unspecified stage N18.9 Active 721585705 Problem Perennial allergic rhinitis, unspecified allergic rhinitis trigger J30.89 Active 429869180 Problem Seizure disorder G40.909 Active 610118447 Problem Back pain M54.9 Active 309305033 Problem History of CVA with residual deficit I69.30 Active 886543736 Problem Age-related osteoporosis without current pathological fracture M81.0 Active 14946687 Problem Personality disorder F60.9 Active 67602044 Problem History of colon polyps Z86.010 Active 721507453 Problem Gastroesophageal reflux disease without esophagitis K21.9 Active 861008333 Problem Factitious disorder imposed on self, recurrent episode F68.10 Active 24413447 Problem Anemia, unspecified type D64.9 Active 011237710 ALLERGIES No Information SOCIAL HISTORY Never Assessed PLAN OF CARE VITAL SIGNS MEDICATIONS Medication Instructions Dosage Frequency Start Date End Date Duration Status Fentanyl 75 MCG/HR Transdermal every 72 hours 1 patch to skin October, 30 days Active RESULTS No Results PROCEDURES [...] surgery and skin graft, cholecysectomy Hospitalization History [facility] [place] [facility] 12/2016
--- OUTSIDE RECORDS SUMMARY | 2017-09-19 03:17 | XMS REPORT ---
Author Author IRENE PATEL Organization [facility] Address [address] [place] [address] Care Team Providers Care Occupational Health Physiotherapist Name Role Phone IRENE PATEL Unavailable PROBLEMS Type Condition ICD9-CM Code SKF54-XE Code Onset Dates Condition Status SNOMED Code Problem Insomnia, unspecified type G47.00 Active 899479180 Problem Chronic kidney disease, unspecified stage N18.9 Active 612284358 Problem Perennial allergic rhinitis, unspecified allergic rhinitis trigger J30.89 Active 477781153 Problem Seizure disorder G40.909 Active 917282424 Problem Back pain M54.9 Active 617833528 Problem History of CVA with residual deficit I69.30 Active 597843634 Problem Age-related osteoporosis without current pathological fracture M81.0 Active 40664448 Problem Personality disorder F60.9 Active 33295302 Problem History of colon polyps Z86.010 Active 912064264 Problem Gastroesophageal reflux disease without esophagitis K21.9 Active 730438744 Problem Factitious disorder imposed on self, recurrent episode F68.10 Active 82845397 Problem Anemia, unspecified type D64.9 Active 325237016 ALLERGIES No Information SOCIAL HISTORY Never Assessed [...] surgery and skin graft, cholecysectomy Hospitalization History [facility] [place] [facility] 12/2016
--- OUTSIDE RECORDS SUMMARY | 2017-09-19 03:17 | XMS REPORT ---
Author Author NAHOMY BETH Organization [facility] Address [address] [place] [address] Care Team Providers Care Rehabilitation Services Director Name Role Phone NAHOMY BETH Unavailable PROBLEMS Type Condition ICD9-CM Code PCX11-RS Code Onset Dates Condition Status SNOMED Code Problem History of CVA with residual deficit I69.30 Active 496776762 Problem Perennial allergic rhinitis, unspecified allergic rhinitis trigger J30.89 Active 176585316 Problem Insomnia, unspecified type G47.00 Active 508303776 Problem Seizure disorder G40.909 Active 748797425 Problem Back pain M54.9 Active 755076156 Problem Personality disorder F60.9 Active 74035949 Problem Factitious disorder imposed on self, recurrent episode F68.10 Active 64561811 Problem Gastroesophageal reflux disease without esophagitis K21.9 Active 132014085 Problem Chronic kidney disease, unspecified stage N18.9 Active 102488322 Problem Anemia, unspecified type D64.9 Active 073000965 Problem History of colon polyps Z86.010 Active 251185107 ALLERGIES Unknown Allergies SOCIAL HISTORY No smoking Hx information available PLAN OF CARE VITAL SIGNS MEDICATIONS Medication Instructions Dosage Frequency Start Date End Date Duration Status Macrobid 100 MG Orally every 12 hrs 1 capsule with food 12h May, Jun, 7 day(s) Active RESULTS No Results PROCEDURES No Known procedures IMMUNIZATIONS No Known Immunizations
--- OUTSIDE RECORDS SUMMARY | 2017-09-19 03:17 | XMS REPORT ---
Author Author IRENE PATEL Organization [facility] Address [address] [place] [address] Care Team Providers Care Sales Representatives Name Role Phone IRENE PATEL Unavailable PROBLEMS Type Condition ICD9-CM Code XSV69-SY Code Onset Dates Condition Status SNOMED Code Problem Insomnia, unspecified type G47.00 Active 600366141 Problem Chronic kidney disease, unspecified stage N18.9 Active 653057286 Problem Perennial allergic rhinitis, unspecified allergic rhinitis trigger J30.89 Active 040092841 Problem Seizure disorder G40.909 Active 481917440 Problem Back pain M54.9 Active 230792573 Problem History of CVA with residual deficit I69.30 Active 986767432 Problem Age-related osteoporosis without current pathological fracture M81.0 Active 08533723 Problem Personality disorder F60.9 Active 14335832 Problem History of colon polyps Z86.010 Active 092969233 Problem Gastroesophageal reflux disease without esophagitis K21.9 Active 499179708 Problem Factitious disorder imposed on self, recurrent episode F68.10 Active 75606223 Problem Anemia, unspecified type D64.9 Active 206646662 ALLERGIES No Information SOCIAL HISTORY Never Assessed [...] surgery and skin graft, cholecysectomy Hospitalization History [facility] [place] [facility] 12/2016
[2017-09-19] MEDS ORDERED: NS IV 1000 ML 1,000 ML IV ONE (03:18)
--- OUTSIDE RECORDS SUMMARY | 2017-09-19 03:20 | XMS REPORT ---
Author Author NAHOMY BETH [facility] Address [address] [place] [address] Care Team Providers Care Teacher Adventure Education Name Role Phone NAHOMY BETH Unavailable PROBLEMS Type Condition ICD9-CM Code [id number] Code Onset Dates Condition Status SNOMED Code Problem Insomnia, unspecified type G47.00 Active 124701604 Problem Chronic kidney disease, unspecified stage N18.9 Active 030833010 Problem Perennial allergic rhinitis, unspecified allergic rhinitis trigger J30.89 Active 885066566 Problem Seizure disorder G40.909 Active 111974949 Problem Back pain M54.9 Active 429870792 Problem History of CVA with residual deficit I69.30 Active 154740310 Problem Age-related osteoporosis without current pathological fracture M81.0 Active 82720798 Problem Personality disorder F60.9 Active 94959636 Problem History of colon polyps Z86.010 Active 551851691 Problem Gastroesophageal reflux disease without esophagitis K21.9 Active 065756988 Problem Factitious disorder imposed on self, recurrent episode F68.10 Active 80892587 Problem Anemia, unspecified type D64.9 Active 052673332 ALLERGIES No Information SOCIAL HISTORY Never Assessed PLAN OF CARE VITAL SIGNS MEDICATIONS Medication Instructions Dosage Frequency Start Date End Date Duration Status Fentanyl 75 MCG/HR Transdermal, every 72 hours 1 patch to skin Aug, 30 days Active RESULTS No Results PROCEDURES [...] and skin graft, cholecysectomy [place] [facility] [place] [facility] [place]
--- OUTSIDE RECORDS SUMMARY | 2017-09-19 03:20 | XMS REPORT ---
Author Author NAIN HARO Organization [facility] Address [address] [place] [address] Care Team Providers Care Crop Picker Name Role Phone NAIN HARO Unavailable PROBLEMS Type Condition ICD9-CM Code MWM16-HJ Code Onset Dates Condition Status SNOMED Code Problem Insomnia, unspecified type G47.00 Active 419296394 Problem Chronic kidney disease, unspecified stage N18.9 Active 139249461 Problem Perennial allergic rhinitis, unspecified allergic rhinitis trigger J30.89 Active 307213373 Problem Seizure disorder G40.909 Active 601495091 Problem Back pain M54.9 Active 748259288 Problem History of CVA with residual deficit I69.30 Active 865096644 Problem Age-related osteoporosis without current pathological fracture M81.0 Active 85607332 Problem Personality disorder F60.9 Active 92279256 Problem History of colon polyps Z86.010 Active 773289878 Problem Gastroesophageal reflux disease without esophagitis K21.9 Active 744115640 Problem Factitious disorder imposed on self, recurrent episode F68.10 Active 10315658 Problem Anemia, unspecified type D64.9 Active 378176038 ALLERGIES No Information SOCIAL HISTORY Never Assessed [...] surgery and skin graft, cholecysectomy Hospitalization History [facility] [place] [facility] 12/2016
--- OUTSIDE RECORDS SUMMARY | 2017-09-19 03:21 | XMS REPORT ---
Author Author IRENE PATEL Organization [facility] Address [address] [place] [address] Care Team Providers Care Computer Tester Name Role Phone IRENE PATEL Unavailable PROBLEMS Type Condition ICD9-CM Code [id number] Code Onset Dates Condition Status SNOMED Code Problem Insomnia, unspecified type G47.00 Active 809802595 Problem Chronic kidney disease, unspecified stage N18.9 Active 650981475 Problem Perennial allergic rhinitis, unspecified allergic rhinitis trigger J30.89 Active 896700996 Problem Seizure disorder G40.909 Active 108868589 Problem Back pain M54.9 Active 863342827 Problem History of CVA with residual deficit I69.30 Active 105336047 Problem Age-related osteoporosis without current pathological fracture M81.0 Active 07912930 Problem Personality disorder F60.9 Active 18229587 Problem History of colon polyps Z86.010 Active 075822689 Problem Gastroesophageal reflux disease without esophagitis K21.9 Active 380600956 Problem Factitious disorder imposed on self, recurrent episode F68.10 Active 83330852 Problem Anemia, unspecified type D64.9 Active 162814946 ALLERGIES No Information SOCIAL HISTORY Never Assessed PLAN OF CARE Activity Details Follow Up prn Reason: VITAL SIGNS MEDICATIONS Unknown Medications RESULTS No Results PROCEDURES Procedure Date Ordered Result Body Site Minor complication (15 mins) Aug 21, 2016 IMMUNIZATIONS No Known Immunizations MEDICAL (GENERAL) [...] and skin graft, cholecysectomy [place] [facility] [place] [facility] [place]
--- OUTSIDE RECORDS SUMMARY | 2017-09-19 03:21 | XMS REPORT ---
Author Author NAHOMY BETH Organization [facility] Address [address] [place] [address] Care Team Providers Care Application Security Consultant Name Role Phone NAHOMY BETH Unavailable PROBLEMS Type Condition ICD9-CM Code SHO61-[id number] Code Onset Dates Condition Status SNOMED Code Problem Insomnia, unspecified type G47.00 Active 468489656 Problem Chronic kidney disease, unspecified stage N18.9 Active 743963546 Problem Perennial allergic rhinitis, unspecified allergic rhinitis trigger J30.89 Active 728788494 Problem Seizure disorder G40.909 Active 967626850 Problem Back pain M54.9 Active 885822674 Problem History of CVA with residual deficit I69.30 Active 497923779 Problem Age-related osteoporosis without current pathological fracture M81.0 Active 42133388 Problem Personality disorder F60.9 Active 14557064 Problem History of colon polyps Z86.010 Active 910792006 Problem Gastroesophageal reflux disease without esophagitis K21.9 Active 703103287 Problem Factitious disorder imposed on self, recurrent episode F68.10 Active 58457163 Problem Anemia, unspecified type D64.9 Active 021525828 ALLERGIES Unknown Allergies SOCIAL HISTORY No smoking Hx information available PLAN OF CARE VITAL SIGNS MEDICATIONS Medication Instructions Dosage Frequency Start Date End Date Duration Status Clorazepate Dipotassium 3.75 MG Orally Twice a day 2 tablets 12h 28 days Active RESULTS No Results PROCEDURES No Known procedures IMMUNIZATIONS No Known Immunizations
--- OUTSIDE RECORDS SUMMARY | 2017-09-19 03:21 | XMS REPORT ---
Author Author IRENE PATEL Organization [facility] Address [address] [place] [address] Care Team Providers Care Wet Wash Assembler Name Role Phone IRENE PATEL Unavailable PROBLEMS Type Condition ICD9-CM Code IQI87-ES Code Onset Dates Condition Status SNOMED Code Problem Insomnia, unspecified type G47.00 Active 504307387 Problem Chronic kidney disease, unspecified stage N18.9 Active 233709263 Problem Perennial allergic rhinitis, unspecified allergic rhinitis trigger J30.89 Active 064949851 Problem Seizure disorder G40.909 Active 205974969 Problem Back pain M54.9 Active 574001320 Problem History of CVA with residual deficit I69.30 Active 700978000 Problem Age-related osteoporosis without current pathological fracture M81.0 Active 36930468 Problem Personality disorder F60.9 Active 30903639 Problem History of colon polyps Z86.010 Active 313583826 Problem Gastroesophageal reflux disease without esophagitis K21.9 Active 364970724 Problem Factitious disorder imposed on self, recurrent episode F68.10 Active 06162771 Problem Anemia, unspecified type D64.9 Active 258195064 ALLERGIES Unknown Allergies SOCIAL HISTORY No smoking Hx information available PLAN OF CARE VITAL SIGNS MEDICATIONS Medication Instructions Dosage Frequency Start Date End Date Duration Status Lamotrigine 100 MG Orally 2 times a day 1 tablet 12h 30 days Active Omeprazole 20 mg Orally Once a day 2 capsules 24h 30 days Active RESULTS No Results PROCEDURES No Known procedures IMMUNIZATIONS No Known Immunizations
--- OUTSIDE RECORDS SUMMARY | 2017-09-19 03:21 | XMS REPORT ---
Author Author IRENE PATEL Organization [facility] Address [address] [place] [address] Care Team Providers Care Bioinformatics Developer Name Role Phone IRENE PATEL Unavailable PROBLEMS Type Condition ICD9-CM Code VGT69-GH Code Onset Dates Condition Status SNOMED Code Problem Insomnia, unspecified type G47.00 Active 853773303 Problem Chronic kidney disease, unspecified stage N18.9 Active 444400110 Problem Perennial allergic rhinitis, unspecified allergic rhinitis trigger J30.89 Active 188238688 Problem Seizure disorder G40.909 Active 135163458 Problem Back pain M54.9 Active 883768503 Problem History of CVA with residual deficit I69.30 Active 770664533 Problem Age-related osteoporosis without current pathological fracture M81.0 Active 05008490 Problem Personality disorder F60.9 Active 12664469 Problem History of colon polyps Z86.010 Active 859247970 Problem Gastroesophageal reflux disease without esophagitis K21.9 Active 845453171 Problem Factitious disorder imposed on self, recurrent episode F68.10 Active 59721674 Problem Anemia, unspecified type D64.9 Active 152601304 ALLERGIES Unknown Allergies SOCIAL HISTORY No smoking Hx information available PLAN OF CARE VITAL SIGNS MEDICATIONS Medication Instructions Dosage Frequency Start Date End Date Duration Status Tussin DM 100-10 MG/5ML Orally every 6 hrs 10 ml as needed 6h Jun, Active RESULTS No Results PROCEDURES No Known procedures IMMUNIZATIONS No Known Immunizations
--- OUTSIDE RECORDS SUMMARY | 2017-09-19 03:22 | XMS REPORT ---
Author Author IRENE PATEL Organization [facility] Address [address] [place] [address] Care Team Providers Care Logistics Solution Manager Name Role Phone IRENE PATEL Unavailable PROBLEMS Type Condition ICD9-CM Code IPI30-YX Code Onset Dates Condition Status SNOMED Code Problem Insomnia, unspecified type G47.00 Active 682982709 Problem Chronic kidney disease, unspecified stage N18.9 Active 652337622 Problem Perennial allergic rhinitis, unspecified allergic rhinitis trigger J30.89 Active 711393580 Problem Seizure disorder G40.909 Active 694748135 Problem Back pain M54.9 Active 348646997 Problem History of CVA with residual deficit I69.30 Active 246955055 Problem Age-related osteoporosis without current pathological fracture M81.0 Active 07061622 Problem Personality disorder F60.9 Active 34065735 Problem History of colon polyps Z86.010 Active 207067007 Problem Gastroesophageal reflux disease without esophagitis K21.9 Active 909529817 Problem Factitious disorder imposed on self, recurrent episode F68.10 Active 60451632 Problem Anemia, unspecified type D64.9 Active 907332291 ALLERGIES No Information SOCIAL HISTORY Never Assessed [...] surgery and skin graft, cholecysectomy Hospitalization History [facility] [place] [facility] 12/2016
--- OUTSIDE RECORDS SUMMARY | 2017-09-19 03:22 | XMS REPORT ---
Author Author IRENE PATEL Organization [facility] Address [address] [place] [address] Care Team Providers Care Roof Cement And Paint Maker Helper Name Role Phone IRENE PATEL Unavailable PROBLEMS Type Condition ICD9-CM Code [id number]-AK Code Onset Dates Condition Status SNOMED Code Problem Insomnia, unspecified type G47.00 Active 436443545 Problem Chronic kidney disease, unspecified stage N18.9 Active 002300122 Problem Perennial allergic rhinitis, unspecified allergic rhinitis trigger J30.89 Active 520756196 Problem Seizure disorder G40.909 Active 587287467 Problem Back pain M54.9 Active 862920757 Problem History of CVA with residual deficit I69.30 Active 585939440 Problem Age-related osteoporosis without current pathological fracture M81.0 Active 30405159 Problem Personality disorder F60.9 Active 96742371 Problem History of colon polyps Z86.010 Active 552680988 Problem Gastroesophageal reflux disease without esophagitis K21.9 Active 617677007 Problem Factitious disorder imposed on self, recurrent episode F68.10 Active 22288667 Problem Anemia, unspecified type D64.9 Active 912333284 ALLERGIES No Information SOCIAL HISTORY Never Assessed PLAN OF CARE VITAL SIGNS MEDICATIONS Medication Instructions Dosage Frequency Start Date End Date Duration Status Fentanyl 50 MCG/HR Transdermal every 72 hours 1 patch [...] surgery and skin graft, cholecysectomy [place] [facility] [place] [facility] [place]
--- NOTE | 2017-09-19 03:23 | ED Neurological Problem ---
General Chief Complaint: Neurological Problems Stated Complaint: SEIZURE Source: patient, EMS, jail records, old records Exam Limitations: no limitations History of Present Illness Date Seen by Provider: Sep 19, 2017 Time Seen by Provider: 03:14 Initial Comments Patient presents to ER by EMS with a chief complaint that she was at the jail had a 45 minute witnessed grand mal seizure. She has a history of epilepsy for which she is on Dilantin topiramate and has been taking her medications appropriately although she said today she was told her Dilantin levels were low but the docks have not changed her medication dosing because is been over a year since she's had a seizure. Patient says for the last 2 or 3 days she's been complaining of blackout spells but they were all unwitnessed so the nurse asked her to hit her call light if she felt off. Tonight when she had her call light the nurse when and investigate and the patient was having a grand mal seizure. EMS reports the patient was having what appeared to be a grand mal seizure when they arrived to the establish an IV and gave her 10 mg of Versed after which the patient stopped seizing and was postictal, got her here. They said she would arouse to verbal stimuli and answer simple questions. The patient is a little more talkative now and indicates she is not in any pain having any nausea cough or shortness of breath or recent illness. She says she does have a urostomy for the past 24 years from a history of bladder cancer for which she received radiation and chemotherapy and is still in remission. She is not complaining any fevers chills or difficulty with her urine being foul- smelling or turbid. EMS reports the jail did not give any antiseizure medication prior to their arrival. No blood glucose was obtained. Allergies and Home Medications Allergies Coded Allergies: Penicillins (Verified Allergy, Unknown, 03/18/06) Sulfa (Sulfonamide Antibiotics) (Verified Allergy, Unknown, 03/18/06) acetaminophen (Verified Allergy, Unknown, 03/18/06) amitriptyline (Verified Allergy, Unknown, 03/18/06) aspirin (Verified Allergy, Unknown, 03/18/06) caramiphen (Verified Allergy, Unknown, 03/18/06) carbamazepine (Verified Allergy, Unknown, 03/18/06) clarithromycin (Verified Allergy, Unknown, 03/18/06) codeine (Verified Allergy, Unknown, 03/18/06) diazepam (Verified Allergy, Unknown, 03/18/06) diphenhydramine (Verified Allergy, Unknown, 03/18/06) doxycycline (Verified Allergy, Unknown, 03/18/06) egg (Verified Allergy, Unknown, 03/18/06) fish oil (Verified Allergy, Unknown, 03/18/06) flavoxate (Verified Allergy, Unknown, 03/18/06) hydrocodone (Verified Allergy, Unknown, 03/18/06) hydroxyzine (Verified Allergy, Unknown, 03/18/06) hyoscyamine (Verified Allergy, Unknown, 03/18/06) imipramine (Verified Allergy, Unknown, 03/18/06) levofloxacin (Verified Allergy, Unknown, 03/18/06) liver extract (Verified Allergy, Unknown, 03/18/06) lorazepam (Verified Allergy, Unknown, 03/18/06) milk (Verified Allergy, Unknown, 03/18/06) nitrofurantoin (Verified Allergy, Unknown, 03/18/06) oxybutynin (Verified Allergy, Unknown, 03/18/06) pentazocine (Verified Allergy, Unknown, 03/18/06) phenazopyridine (Verified Allergy, Unknown, 03/18/06) phenylpropanolamine (Verified Allergy, Unknown, 03/18/06) procaine (Verified Allergy, Unknown, 03/18/06) promethazine (Verified Allergy, Unknown, 03/18/06) propoxyphene (Verified Allergy, Unknown, 03/18/06) pseudoephedrine (Verified Allergy, Unknown, 03/18/06) tetracycline (Verified Allergy, Unknown, 03/18/06) tramadol (Verified Allergy, Unknown, 03/18/06) zinc acetate (Verified Allergy, Unknown, 03/18/06) Uncoded Allergies: ALL FISH (Allergy, Unknown, 03/18/06) ANITHISTAMINES (Allergy, Unknown, 03/18/06) COFFEE (Allergy, Unknown, 03/18/06) SPINACH (Allergy, Unknown, 03/18/06) Home Medications Acetaminophen 650 Mg Cplt, 650 MG PO Q4H PRN for PAIN, (Reported) Atorvastatin Calcium 40 Mg Tablet, 40 MG PO HS, (Reported) Butalb/Acetaminophen/Caffeine 1 Each Capsule, 1 EACH PO Q6H PRN for HEADACHE, ( Reported) Carboxymethylcellulose Sodium 15 Ml Drops, 1 DROP OU QIDACHS, (Reported) Carboxymethylcellulose Sodium 15 Ml Drp.lq.gel, 1 DROP OU Q4H PRN for SEASONAL ALLERGIES, (Reported) Cephalexin 500 Mg Capsule, 500 MG PO BID, (Reported) Cholecalciferol (Vitamin D3) 5,000 Unit Capsule, 5,000 UNIT PO BID, (Reported) EVERY 7 DAYS Citalopram Hydrobromide 20 Mg Tablet, 20 MG PO DAILY, (Reported) Clorazepate Dipotassium 3.75 Mg Tablet, 3.75 MG PO BID, (Reported) Cyanocobalamin 1,000 Mcg/Ml Inj, 1,000 MCG IJ Q 14 DAYS, (Reported) Fentanyl 1 Ea Patch, 75 MCG TD Q72H, (Reported) Fluticasone Propionate 9.9 Ml [place].susp, 1 SPRAY NSEACH BID, (Reported) Folic Acid 1 Mg Tablet, 1 MG PO DAILY, (Reported) Gabapentin 400 Mg Capsule, 400 MG PO HS, (Reported) PAIN IN JOINTS Guaifenesin 100 Mg/5 Ml Liquid, 10 ML PO Q6H PRN for COUGH, (Reported) Hydrocortisone/Pramoxine 30 Gm Cream.appl, 30 GM RC PRN, (Reported) Ibuprofen 400 Mg Tablet, 400 MG PO Q6H PRN for PAIN, (Reported) Lamotrigine 100 Mg Tablet, 100 MG PO BID, (Reported) Melatonin 5 Mg Tab.ir.er, 5 MG PO HS, (Reported) Metoprolol Tartrate 25 Mg Tablet, 25 MG PO BID, (Reported) Nitroglycerin 0.2 Mg/Patch Patch, 0.2 MG TD DAILY, (Reported) Omeprazole 20 Mg Tablet.dr, 20 MG PO DAILY, (Reported) Ondansetron HCl 4 Mg Tab, 4 MG PO Q6H PRN for NAUSEA/VOMITING-1ST LINE, ( Reported) Phenytoin 50 Mg Tab.chew, 50 MG PO DAILY, (Reported) Phenytoin Sodium Extended 100 Mg Capsule, 100 MG PO DAILY, (Reported) Polyethylene Glycol 119 Gm Btl, 17 GM PO BID, (Reported) Promethazine HCl 6.25 Mg/5 Ml Syrup, 8 ML PO Q4H PRN for NAUSEA/VOMITING-1ST LINE, (Reported) Propylene Glycol/Peg 400 10 Ml Drops.gel, 1 DROP OU HS, (Reported) Sodium Bicarbonate 650 Mg Tablet, 650 MG PO DAILY, (Reported) Topiramate 100 Mg Tab, 100 MG PO BID, (Reported) Warfarin Sodium 1 Mg Tablet, 1 MG PO 1700, (Reported) Saturday Warfarin Sodium 1 Mg Tablet, 1.5 MG PO 1700, (Reported) SUN,SAT,,SAT,SAT Patient Home Medication List Home Medication List Reviewed: Yes Constitutional: No chills, No diaphoresis, No fever, No malaise, No weakness Eyes: Denies Blindness, Denies Blurred Vision, Denies Drainage, Denies Pain, Denies Photophobia Ears, Nose, Mouth, Throat: denies ear pain, denies ear discharge, denies nose pain Respiratory: No cough, No phlegm, No short of breath Cardiovascular: No chest pain, No edema, No palpitations Gastrointestinal: No abdominal pain, No constipation, No diarrhea, No nausea, No vomiting Genitourinary: No discharge, No dysuria Past Lfgmzli-Gpwnwj-Ioavfk Hx Patient Social History Alcohol Use: Denies Use Recreational Drug Use: No Recent Foreign Travel: No Contact w/Someone Who Travel: No Recent Hopitalizations: No Immunizations Up To Date Tetanus Booster (TDap): More than 5yrs Date of Pneumonia Vaccine: May 02, 2017 Date of Influenza Vaccine: Apr 02, 2017 Seasonal Allergies Seasonal Allergies: Yes Surgeries Surgeries: Abdominal, Bladder Surgery, Gallbladder, Hysterectomy, Orthopedic Respiratory Respiratory Disorders: Pneumonia Cardiovascular Cardiac Disorders: Coronary Artery Disease, Deep Vein Thrombosis, High Cholesterol, Hypertension, Rheumatic Fever, Valvular Heart Disease Neurological Neurological Disorders: Seizure Disorder, Stroke Reproductive System Hx Reproductive Disorders: No Sexually Transmitted Disease: No HIV/AIDS: No Female Reproductive Disorders: Denies Genitourinary Genitourinary Disorders: Bladder Infection Gastrointestinal Gastrointestinal Disorders: Gastroesophageal Reflux, Chronic Constipation Musculoskeletal Musculoskeletal Disorders: Osteoporosis, Arthritis, Fractures HEENT HEENT Disorders: Cataract Loss of Vision: Bilateral Hearing Impairment: Denies Cancer Cancer: Bladder Psychosocial Behavioral Health Disorders: Anxiety Blood Transfusions Adverse Reaction to a Blood Tr: No Physical Exam Vital Signs Vital Signs - First Documented 09/19/17 03:08 Temp 97.9 Pulse 50 Resp 20 B/P (MAP) 155/61 (92) Pulse Ox 100 O2 Delivery Room Air Capillary Refill : General Appearance: WD/WN, no apparent distress HEENT: PERRL/EOMI, normal ENT inspection, TMs normal, pharynx normal Neck: non-tender, supple, normal inspection Respiratory: chest non-tender, lungs clear, normal breath sounds, no respiratory distress, no accessory muscle use Cardiovascular: normal peripheral pulses, regular rate, rhythm, no edema Peripheral Pulses: 2+ Dorsalis Pedis (R), 2+ Left Dors-Pedis (L), 2+ Radial Pulses (R), 2+ Radial Pulses (L) Gastrointestinal: normal bowel sounds, non tender, soft, other (Urostomy) Back: normal inspection, no CVA tenderness, no vertebral tenderness Extremities: normal range of motion, normal inspection, no pedal edema, normal capillary refill Neurologic/Psychiatric: rag shredder II-XII nml as tested, no motor/sensory deficits, alert, normal mood/affect, oriented x 3 Crainal Nerves: normal hearing, normal speech, PERRL Coordination/Gait: normal finger to nose Motor/Sensory: no motor deficit, no sensory deficit, no pronator drift Skin: normal color, warm/dry Progress/Results/Core Measures Results/Orders Lab Results Laboratory Tests Test 09/19/17 03:30 09/19/17 03:51 09/19/17 03:55 Range/Units White Blood Count 4.9 4.3-11.0 10^3/uL Red Blood Count 3.25 L 4.35-5.85 10^6/uL Hemoglobin 10.0 L 11.5-16.0 G/DL Hematocrit 31 L 35-52 % Mean Corpuscular Volume 95 80-99 FL Mean Corpuscular Hemoglobin 31 25-34 PG Mean Corpuscular Hemoglobin Concent 33 32-36 G/DL Red Cell Distribution Width 13.6 10.0-14.5 % Platelet Count 169 130-400 10^3/uL Mean Platelet Volume 10.5 H 7.4-10.4 FL Neutrophils (%) (Auto) 57 42-75 % Lymphocytes (%) (Auto) 27 12-44 % Monocytes (%) (Auto) 14 H 0-12 % Eosinophils (%) (Auto) 2 0-10 % Basophils (%) (Auto) 0 0-10 % Neutrophils # (Auto) 2.8 1.8-7.8 X 10^3 Lymphocytes # (Auto) 1.3 1.0-4.0 X 10^3 Monocytes # (Auto) 0.7 0.0-1.0 X 10^3 Eosinophils # (Auto) 0.1 0.0-0.3 10^3/uL Basophils # (Auto) 0.0 0.0-0.1 10^3/uL Prothrombin Time 16.5 H 12.2-14.7 SEC INR Comment 1.3 0.8-1.4 Activated Partial Thromboplast Time 24 24-35 SEC Sodium Level 132 L 135-145 MMOL/L Potassium Level 4.6 3.6-5.0 MMOL/L Chloride Level 105 98-107 MMOL/L Carbon Dioxide Level 21 21-32 MMOL/L Anion Gap 6 5-14 MMOL/L Blood Urea Nitrogen 15 7-18 MG/DL Creatinine 0.87 0.60-1.30 MG/DL Estimat Glomerular Filtration Rate > 60 BUN/Creatinine Ratio 17 Glucose Level 90 70-105 MG/DL Calcium Level 8.7 8.5-10.1 MG/DL Total Bilirubin 0.2 0.1-1.0 MG/DL Aspartate Amino Transf (AST/SGOT) 15 5-34 U/L Alanine Aminotransferase (ALT/SGPT) 11 0-55 U/L Alkaline Phosphatase 95 40-136 U/L C-Reactive Protein High Sensitivity 0.87 H 0.00-0.50 MG/DL Total Protein 6.6 6.4-8.2 GM/DL Albumin 3.7 3.2-4.5 GM/DL Glucometer 90 70-110 MG/DL Urine Color YELLOW Urine Clarity CLEAR Urine pH 8 5-9 Urine Specific [place] 1.010 L 1.016-1.022 Urine Protein NEGATIVE NEGATIVE Urine Glucose (UA) NEGATIVE NEGATIVE Urine Ketones NEGATIVE NEGATIVE Urine Nitrite POSITIVE H NEGATIVE Urine Bilirubin NEGATIVE NEGATIVE Urine Urobilinogen NORMAL NORMAL MG/DL Urine Leukocyte Esterase 1+ H NEGATIVE Urine RBC (Auto) 1+ H NEGATIVE Urine RBC RARE /HPF Urine WBC 0-2 /HPF Urine Crystals NONE /LPF Urine Bacteria FEW H /HPF Urine Casts NONE /LPF Urine Mucus SMALL H /LPF Urine Culture Indicated YES Urine Opiates Screen NEGATIVE NEGATIVE Urine Oxycodone Screen NEGATIVE NEGATIVE Urine Methadone Screen NEGATIVE NEGATIVE Urine Propoxyphene Screen NEGATIVE NEGATIVE Urine Barbiturates Screen POSITIVE H NEGATIVE Ur Tricyclic Antidepressants Screen NEGATIVE NEGATIVE Urine Phencyclidine Screen NEGATIVE NEGATIVE Urine Amphetamines Screen NEGATIVE NEGATIVE Urine Methamphetamines Screen NEGATIVE NEGATIVE Urine Benzodiazepines Screen POSITIVE H NEGATIVE Urine Cocaine Screen NEGATIVE NEGATIVE Urine Cannabinoids Screen NEGATIVE NEGATIVE My Orders Orders - ANDREW DAMICO Ct Head Wo (09/19/17 03:18) Cbc With Automated Diff (09/19/17 03:18) Comprehensive Metabolic Panel (09/19/17 03:18) Hs C Reactive Protein (09/19/17 03:18) Drug Screen Stat (Urine) (09/19/17 03:18) Ua Culture If Indicated (09/19/17 03:18) Chest 1 View, Ap/Pa Only (09/19/17 03:18) Saline Lock/Iv-Start (09/19/17 03:18) Ns Iv 1000 Ml (Sodium Chloride 0.9%) (09/19/17 03:18) Protime With Inr (09/19/17 03:18) Partial Thromboplastin Time (09/19/17 03:18) Dilantin (Phenytoin) (09/19/17 03:18) Accucheck Stat ONCE (09/19/17 03:28) Urine Culture (09/19/17 03:55) Midazolam Injection (Versed Injection) (09/19/17 04:15) Lorazepam Injection (Ativan Injection) (09/19/17 04:06) Ceftriaxone Injection (Rocephin Injectio (09/19/17 04:15) Phenytoin Capsule (Dilantin Capsule) (09/19/17 04:30) Medications Given in ED Current Medications Medications Dose Ordered Sig/Day Route Start Time Stop Time Status Last Admin Dose Admin Ceftriaxone Sodium 1000 mg/ Sodium Chloride 100 ml @ 200 mls/hr ONCE ONCE IV 09/19/17 04:15 09/19/17 04:44 DC 09/19/17 04:46 200 MLS/HR Phenytoin Sodium 100 mg ONCE ONCE PO 09/19/17 04:30 09/19/17 04:31 DC 09/19/17 04:47 100 MG Sodium Chloride 1,000 ml @ 0 mls/hr Q0M ONCE IV 09/19/17 03:18 09/19/17 03:21 DC 09/19/17 03:52 1,000 MLS/HR Vital Signs/I&O Vital Sign - Last 12Hours 09/19/17 03:08 Temp 97.9 Pulse 50 Resp 20 B/P (MAP) 155/61 (92) Pulse Ox 100 O2 Delivery Room Air Progress Note #1: Time: 03:39 Progress Note She has a decrease in 1 mg/dL hemoglobin from 11.1-10 in the last 2 months. No overt history or clinical evidence of bleeding. This is fairly stable. We'll look for reason why she might be having more seizures as of late especially given her distant history of bladder cancer, but it would seem most likely related to her history of having a low Dilantin level. Progress Note #2: Time: 04:21 Progress Note Patient had another 2 minute witnessed grand mal seizure. We did not give any benzos as it terminated spontaneously. Since she states she has a low Dilantin level ordered and give her another 100 mg capsule to help bolster her Dilantin levels. Dilantin level is pending. Plan to keep her here to start treatment of her UTI. Diagnostic Imaging Diagonstic Imaging: Xray Plain Films/CT/US/NM/MRI: chest Comments No acute cardiopulmonary processes noted. vp hr diversity implanted and a Port-A -Cath on the right. Shadow from the urostomy bag to be seen. Reviewed: Reviewed by Me Diagonstic Imaging: CT (without contrast) Plain Films/CT/US/NM/MRI: head Comments No acute intracranial hemorrhage, fracture, tumor, midline shift or mass effect. No acute intracranial abnormality. Postoperative changes of the left-sided craniotomy stable compared to August 2015 Reviewed: Reviewed by Me Departure Communication (Admissions) Time/Spoke to Admitting Phy: 04:38 Communication Discussed case lab imaging and plan with Dr. Holt to place the patient in the hospital for treatment of her urinary tract infection and management of her seizures.'s custody gave her an extra 100 mg of Dilantin this morning and ordered a Dilantin level. Discussed that her warfarin is subtherapeutic with an INR of 1.2. Impression Impression: Primary Impression: Urinary tract infection Qualified Codes: N30.00 - Acute cystitis without hematuria Additional Impressions: Seizures complicating infection Subtherapeutic serum dilantin level Subtherapeutic anticoagulation Disposition: ADMITTED INPATIENT Condition: Stable Admissions Decision to Admit Reason: Admit from ER (General) Decision to Admit/Date: Sep 19, 2017 Time/Decision to Admit Time: 04:22 Departure-Patient Inst. Referrals: NAHOMY BETH MD (PCP/Family) Primary Care Physician Copy Copies To 1: NAIN HARO TITUS J Sep 19, 2017 03:23
[2017-09-19 03:39] LABS: BASOPHILS % (AUTO) 0 % (0-10); EOSINOPHILS # (AUTO) 0.1 10^3/uL (0.0-0.3); EOSINOPHILS % (AUTO) 2 % (0-10); HEMATOCRIT 31 % (35-52); LYMPHOCYTES # (AUTO) 1.3 X 10^3 (1.0-4.0); LYMPHOCYTES % (AUTO) 27 % (12-44); MEAN CORPUSCULAR HEMOGLOBIN 31 PG (25-34); MEAN CORPUSCULAR HGB CONC 33 G/DL (32-36); MEAN CORPUSCULAR VOLUME 95 FL (80-99); MEAN PLATELET VOLUME 10.5 FL (7.4-10.4); MONOCYTES # (AUTO) 0.7 X 10^3 (0.0-1.0); MONOCYTES % (AUTO) 14 % (0-12); NEUTROPHILS # (AUTO) 2.8 X 10^3 (1.8-7.8); NEUTROPHILS % (AUTO) 57 % (42-75); PLATELET COUNT 169 10^3/uL (130-400); RED BLOOD COUNT 3.25 10^6/uL (4.35-5.85); RED CELL DISTRIBUTION WIDTH 13.6 % (10.0-14.5); WHITE BLOOD COUNT 4.9 10^3/uL (4.3-11.0)
[2017-09-19 03:52] LABS: INR 1.3 (0.8-1.4); PROTHROMBIN TIME PATIENT 16.5 SEC (12.2-14.7)
[2017-09-19 04:00] LABS: BILIRUBIN,URINE NEGATIVE (NEGATIVE); CLARITY,URINE CLEAR; COLOR,URINE YELLOW; GLUCOSE, URINE (UA) NEGATIVE (NEGATIVE); KETONES,URINE NEGATIVE (NEGATIVE); LEUKOCYTE ESTERASE ,URINE 1+ (NEGATIVE); NITRITE,URINE POSITIVE (NEGATIVE); PH,URINE 8 (5-9); PROTEIN,URINE NEGATIVE (NEGATIVE); UROBILINOGEN,URINE NORMAL (NORMAL)
[2017-09-19 04:00] LABS: ALANINE AMINOTRANSFERASE 11 U/L (0-55); ALBUMIN 3.7 GM/DL (3.2-4.5); ALKALINE PHOSPHATASE 95 U/L (40-136); BILIRUBIN,TOTAL 0.2 MG/DL (0.1-1.0); BUN/CREATININE RATIO 17; CALCIUM 8.7 MG/DL (8.5-10.1); CARBON DIOXIDE 21 MMOL/L (21-32); CHLORIDE 105 MMOL/L (98-107); CREATININE SERUM 0.87 MG/DL (0.60-1.30); GFR ESTIMATED > 60; GLUCOSE 90 MG/DL (70-105); POTASSIUM 4.6 MMOL/L (3.6-5.0); SODIUM 132 MMOL/L (135-145); TOTAL PROTEIN 6.6 GM/DL (6.4-8.2)
[2017-09-19] MEDS ORDERED: LORazepam INJ 2 MG/ML (ATIVAN) VIAL ONE (04:06)
[2017-09-19 04:07] LABS: BACTERIA,URINE FEW /HPF; RBC,URINE RARE /HPF; WBC,URINE 0-2 /HPF
[2017-09-19 04:12] LABS: AMPHETAMINE SCREEN, URINE NEGATIVE (NEGATIVE); BARBITURATE SCREEN URINE POSITIVE (NEGATIVE); BENZODIAZEPINES SCREEN URINE POSITIVE (NEGATIVE); CANNABINOID SCREEN, URINE NEGATIVE (NEGATIVE); COCAINE SCREEN URINE NEGATIVE (NEGATIVE); METHADONE STAT NEGATIVE (NEGATIVE); METHAMPHETAMINE SCREEN URINE S NEGATIVE (NEGATIVE); OPIATE SCREEN URINE NEGATIVE (NEGATIVE); OXYCODONE STAT NEGATIVE (NEGATIVE); PROPOXYPHENE STAT NEGATIVE (NEGATIVE); TRICYCLIC ANTIDEPRESSANTS SCRE NEGATIVE (NEGATIVE)
[2017-09-19] MEDS ORDERED: cefTRIAXone INJECTION 1,000 MG in NS (IVPB) 100 ML IV ONE (04:15)
[2017-09-19] MEDS ORDERED: MIDAZOLAM 10 MG/2 ML (VERSED) VIAL IVP ONE (04:15)
[2017-09-19] MEDS ORDERED: PHENYTOIN 100 MG (DILANTIN) CAP PO ONE (04:30)
[2017-09-19] MEDS ORDERED: MIDAZOLAM 5 MG/5 ML (VERSED) VIAL ONE (04:52)
[2017-09-19] MEDS: MIDAZOLAM 10 MG/2 ML (VERSED) VIAL IVP ONE (04:56)
[2017-09-19] MEDS ORDERED: MIDAZOLAM 5 MG/5 ML (VERSED) VIAL IVP ONE (05:00)
[2017-09-19 05:45] VITALS: BP 139/65
--- NOTE | 2017-09-19 06:08 | Diagnostic Imaging Report ---
INDICATION: Seizure. COMPARISON: 12/16/2013 FINDINGS: Single frontal radiographic view of the chest was obtained and demonstrates mild cardiomegaly. Pulmonary vasculature, however, is within normal limits. Right subclavian Port-A-Cath is noted with the tip in the SVC. Lungs show small left basilar effusion. There is no large effusion on the right. No pneumothorax is seen on either side. Bony structures show no gross acute abnormalities. IMPRESSION: 1. Small left effusion. 2. Mild cardiomegaly. Dictated by: Dictated on workstation # [id number]
[2017-09-19] MEDS ORDERED: NS IV 1000 ML 1,000 ML ONE (06:35)
--- NOTE | 2017-09-19 07:02 | Diagnostic Imaging Report ---
PROCEDURE: CT head without contrast. TECHNIQUE: Multiple contiguous axial images were obtained through the brain without the use of intravenous contrast. INDICATION: Seizures. Compared 09/02/2015 FINDINGS: Postsurgical changes of a left parietal craniotomy are redemonstrated, unchanged. No acute calvarial pathology. The cerebral cortical atrophy without max hydrocephalus unchanged. There is no intracerebral hemorrhage and there was no mass or mass effect apparent. No findings of focal nor generalized edema. There is no evidence for an elevation of the intracranial pressures. Orbits, sinuses and calvarium appeared nonacute. IMPRESSION: Stable chronic findings Dictated by: Dictated on workstation # [id number]
[2017-09-19] MEDS ORDERED: NS IV 1000 ML 1,000 ML IV SCH (07:15)
[2017-09-19] MEDS ORDERED: ONDANSETRON 4 MG/2 ML (SDV) Z0FRAN IV PRN (07:15)
[2017-09-19] MEDS ORDERED: CATHETER FLUSH 10 ML SYR IV PRN (07:15)
[2017-09-19 08:00] VITALS: BP 150/70
[2017-09-19] MEDS: fentaNYL INJECTION 100 MCG/2 ML AMP IV PRN ×2 (10:15→12:00)
[2017-09-19] MEDS ORDERED: WARF1TAB82 PO ×2 (10:17→11:04)
[2017-09-19] MEDS ORDERED: PHEN50TA4 PO ×2 (10:17→10:34)
[2017-09-19] MEDS ORDERED: CITA10TA12 PO (10:17)
[2017-09-19] MEDS ORDERED: ONDN4T PO (10:17)
[2017-09-19] MEDS ORDERED: CYCL1DRO OP (10:22)
[2017-09-19] MEDS ORDERED: FEXO180T84 PO (10:22)
[2017-09-19] MEDS ORDERED: BISA10SU6 RC (10:22)
[2017-09-19] MEDS ORDERED: CEPH500T PO (10:34)
[2017-09-19] MEDS ORDERED: PHEN100C11 PO (10:34)
--- NOTE | 2017-09-19 10:37 | Discharge Instructions ---
Discharge [facility] Discharge Medications New, Converted or Re-Newed RX: Other (will be provided by shelter) New Medications: Cephalexin (Cephalexin) 500 Mg Tablet 500 MG PO BID, #14 TAB 0 Refills Changed Medications: Phenytoin Sodium Extended (Phenytoin Sodium Extended) 100 Mg Capsule 100 MG PO BID for 30 Days, CAP (Changed from: DAILY) Continued Medications: Acetaminophen (Tylenol Arth Pain (Non-Formulary)) 650 Mg Cplt 650 MG PO Q4H PRN for PAIN Atorvastatin Calcium (Lipitor) 40 Mg Tablet 40 MG PO HS, TAB Bisacodyl (Bisacodyl) 10 Mg Supp.rect 10 MG RC DAILY PRN, SUPP.RECT Butalb/Acetaminophen/Caffeine ([place]-Jxeuozlw-Isqi 50-300-40) 1 Each Capsule 1 EACH PO Q6H PRN for HEADACHE, CAP Carboxymethylcellulose Sodium (Refresh Tears) 15 Ml Drops 1 DROP OU QIDACHS, DROPS Carboxymethylcellulose Sodium (Refresh Liquigel) 15 Ml Drp.lq.gel 1 DROP OU Q4H PRN for SEASONAL ALLERGIES, DROPS Cholecalciferol (Vitamin D3) (Vitamin D) 5,000 Unit Capsule 5000 UNIT PO BID, CAP EVERY 7 DAYS Citalopram Hydrobromide (Celexa) 10 Mg Tablet 10 MG PO DAILY, TAB Clorazepate Dipotassium (Clorazepate Dipotassium) 3.75 Mg Tablet 3.75 MG PO BID, TAB Cyanocobalamin (Cyanocobalamin Injection) 1,000 Mcg/Ml Inj 1000 MCG IJ Q 14 DAYS, VIAL Cyclosporine (Restasis) 1 Each Droperette 1 EACH OP BID, DROP Fentanyl (Duragesic 75MCG Patch) 1 Ea Patch 75 MCG TD Q72H Fexofenadine HCl (Nissa Allergy) 180 Mg Tablet 180 MG PO DAILY, TAB Fluticasone Propionate (Flonase Allergy Relief) 9.9 Ml [place].susp 1 SPRAY NSEACH BID, SPRAY Folic Acid (Folic Acid) 1 Mg Tablet 1 MG PO DAILY Gabapentin (Gabapentin) 400 Mg Capsule 400 MG PO HS PAIN IN JOINTS Guaifenesin (Guaifenesin) 100 Mg/5 Ml Liquid 10 ML PO Q6H PRN for COUGH, EA Hydrocortisone/Pramoxine (Hydrocort-Pramoxine 2.5-1% Crm) 30 Gm Cream.appl 30 GM RC PRN, APPLIC Ibuprofen (Ibuprofen) 400 Mg Tablet 400 MG PO Q6H PRN for PAIN, TAB Lamotrigine (Lamotrigine) 100 Mg Tablet 100 MG PO BID Melatonin (Melatonin) 5 Mg Tab.ir.er 5 MG PO HS Metoprolol Tartrate (Metoprolol Tartrate 25 Mg) 25 Mg Tablet 25 MG PO BID Nitroglycerin (Nitrodur) 0.2 Mg/Patch Patch 0.2 MG TD DAILY Omeprazole (Omeprazole) 20 Mg Tablet.dr 20 MG PO DAILY Ondansetron HCl (Zofran) 4 Mg Tab 4 MG PO Q8H PRN for NAUSEA/VOMITING-1ST LINE for 1 Day, TAB Phenytoin (Phenytoin) 50 Mg Tab.chew 50 MG PO BID for 30 Days, TAB (This prescription has been renewed) Polyethylene Glycol (Miralax Btl) 119 Gm Btl 17 GM PO BID, EA Sodium Bicarbonate (Sodium Bicarbonate) 650 Mg Tablet 650 MG PO DAILY, TAB Topiramate (Topamax 100 Mg) 100 Mg Tab 100 MG PO BID Warfarin Sodium (Warfarin Sodium) 1 Mg Tablet 0 PO UD for 1 Day, TAB Alternate 1 mg and 1.5 mg every other day Patient Instructions Goal/Follow Up Appt: Follow up with Dr. Beth on September 24 at 1:20 pm. Patient Instructions: Check phenytoin (dilantin) level in 7 days just before a dose. Return to The Hospital For: Fever, inability to keep down medications, uncontrolled seizures Activity & Diet Discharge Diet: Regular Diet Activity as Tolerated: Yes Copy Copies To 1: NAHOMY BETH MD, BETHANY N MD Sep 19, 2017 10:37 am
--- NOTE | 2017-09-19 10:38 | Discharge Summary ---
Diagnosis/Chief Complaint Date of Admission Sep 19, 2017 at 4:45 am Date of Discharge Sep 19, 2017 Admission Diagnosis Admission Diagnosis Recurrent seizures Urinary tract infection Discharge Diagnosis Recurrent seizures- last dilantin level low but she had not had seizure activity in a year. Given extra dose of dilantin in ER and has not had recurrent seizure during admission. Will increase home dilantin to total of 200 mg per day (was on 150 mg per day) and recheck dilantin level in 7 days. Urinary tract infection- possible, has multiple ABX allergies, sent with script for cephalexin, follow up urine culture. Small left pleural effusion- asymptomatic, consider repeat 2 view CXR outpatient Chief Complaint/HPI Chief Complaint/HPI 67 yo female admitted from assisted after prolonged seizure activity leading to EMS call. 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 She denies any other symptoms. She has a history of bladder cancer with resection and has urostomy. Discharge Summary-Simple/Stand Discharge Physical Examination Allergies: Coded Allergies: Fish Containing Products (Unverified Allergy, Unknown, 09/19/17) FROM UNCODED ALLERGIES Penicillins (Verified Allergy, Unknown, 03/18/06) Sulfa (Sulfonamide Antibiotics) (Verified Allergy, Unknown, 03/18/06) acetaminophen (Verified Allergy, Unknown, 03/18/06) amitriptyline (Verified Allergy, Unknown, 03/18/06) aspirin (Verified Allergy, Unknown, 03/18/06) caramiphen (Verified Allergy, Unknown, 03/18/06) carbamazepine (Verified Allergy, Unknown, 03/18/06) clarithromycin (Verified Allergy, Unknown, 03/18/06) codeine (Verified Allergy, Unknown, 03/18/06) coffee (Coffea arabica) (Unverified Allergy, Unknown, 09/19/17) FROM UNCODED ALLERGIES diazepam (Verified Allergy, Unknown, 03/18/06) diphenhydramine (Verified Allergy, Unknown, 03/18/06) doxycycline (Verified Allergy, Unknown, 03/18/06) egg (Verified Allergy, Unknown, 03/18/06) fish oil (Verified Allergy, Unknown, 03/18/06) flavoxate (Verified Allergy, Unknown, 03/18/06) hydrocodone (Verified Allergy, Unknown, 03/18/06) hydroxyzine (Verified Allergy, Unknown, 03/18/06) hyoscyamine (Verified Allergy, Unknown, 03/18/06) imipramine (Verified Allergy, Unknown, 03/18/06) levofloxacin (Verified Allergy, Unknown, 03/18/06) liver extract (Verified Allergy, Unknown, 03/18/06) lorazepam (Verified Allergy, Unknown, 03/18/06) milk (Verified Allergy, Unknown, 03/18/06) nitrofurantoin (Verified Allergy, Unknown, 03/18/06) oxybutynin (Verified Allergy, Unknown, 03/18/06) pentazocine (Verified Allergy, Unknown, 03/18/06) phenazopyridine (Verified Allergy, Unknown, 03/18/06) phenylpropanolamine (Verified Allergy, Unknown, 03/18/06) procaine (Verified Allergy, Unknown, 03/18/06) promethazine (Verified Allergy, Unknown, 03/18/06) propoxyphene (Verified Allergy, Unknown, 03/18/06) pseudoephedrine (Verified Allergy, Unknown, 03/18/06) spinach (Unverified Allergy, Unknown, 09/19/17) FROM UNCODED ALLERGIES tetracycline (Verified Allergy, Unknown, 03/18/06) tramadol (Verified Allergy, Unknown, 03/18/06) zinc acetate (Verified Allergy, Unknown, 03/18/06) Uncoded Allergies: ANITHISTAMINES (Allergy, Unknown, 03/18/06) Vitals & I&Os Vital Sign - Last 12Hours Date Time Temp Pulse Resp B/P (MAP) Pulse Ox O2 Delivery O2 Flow Rate FiO2 09/19/17 08:00 97.4 63 16 150/70 (96) 100 Room Air General Appearance: Alert, No Acute Distress Respiratory: Clear to Auscultation, Normal Air Movement Cardiovascular: Regular Rate, No Murmurs Abdominal: Normal Bowel Sounds, Soft, No Tenderness Neuro: Normal Speech Psych/Mental Status: Mental Status NL, Mood NL Hospital Course See final discharge diagnosis. Labs Laboratory Tests Test 09/19/17 03:30 09/19/17 03:51 09/19/17 03:55 Range/Units White Blood Count 4.9 4.3-11.0 10^3/uL Red Blood Count 3.25 L 4.35-5.85 10^6/uL Hemoglobin 10.0 L 11.5-16.0 G/DL Hematocrit 31 L 35-52 % Mean Corpuscular Volume 95 80-99 FL Mean Corpuscular Hemoglobin 31 25-34 PG Mean Corpuscular Hemoglobin Concent 33 32-36 G/DL Red Cell Distribution Width 13.6 10.0-14.5 % Platelet Count 169 130-400 10^3/uL Mean Platelet Volume 10.5 H 7.4-10.4 FL Neutrophils (%) (Auto) 57 42-75 % Lymphocytes (%) (Auto) 27 12-44 % Monocytes (%) (Auto) 14 H 0-12 % Eosinophils (%) (Auto) 2 0-10 % Basophils (%) (Auto) 0 0-10 % Neutrophils # (Auto) 2.8 1.8-7.8 X 10^3 Lymphocytes # (Auto) 1.3 1.0-4.0 X 10^3 Monocytes # (Auto) 0.7 0.0-1.0 X 10^3 Eosinophils # (Auto) 0.1 0.0-0.3 10^3/uL Basophils # (Auto) 0.0 0.0-0.1 10^3/uL Prothrombin Time 16.5 H 12.2-14.7 SEC INR Comment 1.3 0.8-1.4 Activated Partial Thromboplast Time 24 24-35 SEC Sodium Level 132 L 135-145 MMOL/L Potassium Level 4.6 3.6-5.0 MMOL/L Chloride Level 105 98-107 MMOL/L Carbon Dioxide Level 21 21-32 MMOL/L Anion Gap 6 5-14 MMOL/L Blood Urea Nitrogen 15 7-18 MG/DL Creatinine 0.87 0.60-1.30 MG/DL Estimat Glomerular Filtration Rate > 60 BUN/Creatinine Ratio 17 Glucose Level 90 70-105 MG/DL Calcium Level 8.7 8.5-10.1 MG/DL Total Bilirubin 0.2 0.1-1.0 MG/DL Aspartate Amino Transf (AST/SGOT) 15 5-34 U/L Alanine Aminotransferase (ALT/SGPT) 11 0-55 U/L Alkaline Phosphatase 95 40-136 U/L C-Reactive Protein High Sensitivity 0.87 H 0.00-0.50 MG/DL Total Protein 6.6 6.4-8.2 GM/DL Albumin 3.7 3.2-4.5 GM/DL Glucometer 90 70-110 MG/DL Urine Color YELLOW Urine Clarity CLEAR Urine pH 8 5-9 Urine Specific [place] 1.010 L 1.016-1.022 Urine Protein NEGATIVE NEGATIVE Urine Glucose (UA) NEGATIVE NEGATIVE Urine Ketones NEGATIVE NEGATIVE Urine Nitrite POSITIVE H NEGATIVE Urine Bilirubin NEGATIVE NEGATIVE Urine Urobilinogen NORMAL NORMAL MG/DL Urine Leukocyte Esterase 1+ H NEGATIVE Urine RBC (Auto) 1+ H NEGATIVE Urine RBC RARE /HPF Urine WBC 0-2 /HPF Urine Crystals NONE /LPF Urine Bacteria FEW H /HPF Urine Casts NONE /LPF Urine Mucus SMALL H /LPF Urine Culture Indicated YES Urine Opiates Screen NEGATIVE NEGATIVE Urine Oxycodone Screen NEGATIVE NEGATIVE Urine Methadone Screen NEGATIVE NEGATIVE Urine Propoxyphene Screen NEGATIVE NEGATIVE Urine Barbiturates Screen POSITIVE H NEGATIVE Ur Tricyclic Antidepressants Screen NEGATIVE NEGATIVE Urine Phencyclidine Screen NEGATIVE NEGATIVE Urine Amphetamines Screen NEGATIVE NEGATIVE Urine Methamphetamines Screen NEGATIVE NEGATIVE Urine Benzodiazepines Screen POSITIVE H NEGATIVE Urine Cocaine Screen NEGATIVE NEGATIVE Urine Cannabinoids Screen NEGATIVE NEGATIVE CT head with stable unchanged chronic findings CXR IMPRESSION: 1. Small left effusion. 2. Mild cardiomegaly. Discharge Instructions to patient/family Please see electronic discharge instructions given to patient. Discharge Medications Reviewed and agree with Discharge Medication list on patient's Discharge Instruction sheet Clinical Quality Measures DVT/VTE Risk/Contraindication: Risk Factor Score Per Nursin RFS Level Per Nursing on Admit: 4+=Very High Copy Copies To 1: NAHOMY BETH MD, BETHANY N MD Sep 19, 2017 10:38 am
[2017-09-20] MEDS ORDERED: cefTRIAXone 1 GM/NS 100 ML IVPB IV SCH ×2 (09:00)
== END 2017-09-19 12:45 | DRG 101 ==
LOC: EDUNIT# 03:08 → ER 03:09 → 4TH 04:45
PROVIDERS: ADMIT Family Medicine; ATTEND Family Medicine
DX: G40.909 Epilepsy, unspecified, not intractable, without status epilepticus (principal); N39.0 Urinary tract infection, site not specified; J90 Pleural effusion, not elsewhere classified; R79.1 Abnormal coagulation profile; F41.9 Anxiety disorder, unspecified; M19.91 Primary osteoarthritis, unspecified site; Z85.51 Personal history of malignant neoplasm of bladder; Z92.3 Personal history of irradiation; Z92.21 Personal history of antineoplastic chemotherapy; Z93.6 Other artificial openings of urinary tract status; Z79.899 Other long term (current) drug therapy; Z86.73 Personal history of transient ischemic attack (TIA), and cerebral infarction without residual deficits
CPT/HCPCS: 36415; 70450; 71045; 80053; 80185; 80306; 81000; 82962; 85025; 85610; 85730; 86141; 87088; 87186; 96361; 96365; 96375

== ENCOUNTER 2018-02-04 12:59 | Observation (INO) | payer MEDICARE, MEDICAID ==
[~2018-02-04] VITALS: Ht 157.5 cm; Wt 48.1 kg
[~2018-02-04 12:59] MED LIST changes: +BISA10SU6 RC; +CARB15DR OU; -CARB15DR74 OU; +CEPH500T PO; +CITA10TA12 PO; +FEXO180T84 PO; -PHEN125O2 PO; +PHEN125O3 PO; -PROM6.25 PO; +PROM6.2516 PO
[2018-02-04 13:01] VITALS: BP 175/96
--- OUTSIDE RECORDS SUMMARY | 2018-02-04 13:06 | XMS REPORT ---
Author Author NAHOMY BETH [facility] Address [address] [place] [address] Care Team Providers [employer] Lieutenant Name Role Phone NAHOMY BETH Unavailable PROBLEMS Type Condition ICD9-CM Code XVH02-KL Code Onset Dates Condition Status SNOMED Code Problem Anemia, unspecified type D64.9 Active 403043356 Problem Personality disorder F60.9 Active 38018487 Problem Factitious disorder imposed on self, recurrent episode F68.10 Active 11557682 Problem Ventral hernia without obstruction or gangrene K43.9 Active 841061264 Problem Allergic state, subsequent encounter T78.40XD Active 557584782 Problem Anxiety F41.9 Active 91267605 Problem Age-related osteoporosis without current pathological fracture M81.0 Active 85332092 Problem Unspecified psychosis not due to a substance or known physiological condition F29 Active 54789021 Problem Iron deficiency anemia, unspecified iron deficiency anemia type D50.9 Active 35979465 Problem History of CVA with residual deficit I69.30 Active 401996427 Problem Seizure disorder G40.909 Active 344485389 Problem Perennial allergic rhinitis, unspecified allergic rhinitis trigger J30.89 Active 540493117 Problem Chronic kidney disease, unspecified stage N18.9 Active 371104199 Problem Back pain M54.9 Active 182213490 Problem Gastroesophageal reflux disease without esophagitis K21.9 Active 936701671 Problem Insomnia, unspecified type G47.00 Active 138517491 Problem History of colon polyps Z86.010 Active 355898585 ALLERGIES Substance Reaction Event Type Date Status Vibramycin Unknown Drug Allergy October, Active Tylenol hives Drug Allergy October, Active Tegretol Unknown Drug Allergy October, Active SulfADIAZINE Unknown Drug Allergy October, Active Penicillin V Potassium Unknown Drug Allergy October, Active Darvocet A500 Unknown Drug Allergy October, Active Codeine Phosphate Unknown Drug Allergy October, Active Aspirin Unknown Drug Allergy October, Active ENCOUNTERS Encounter Location Date Diagnosis [place] [address] [address] 6[address] Feb, [place] [address] [place] [id number] [place] [address] 92252- 5833 Jan, [place] [address] [id number] [place] [address] 91592- 0437 Jan, Unspecified psychosis not due to a substance or known physiological condition F29 ; Personality disorder F60.9 and Factitious disorder imposed on self, recurrent episode F68.10 [place] [address] [id number] [place] [address] 98416- 5687 Dec, Back pain M54.9 ; Seizure disorder G40.909 ; Ventral hernia without obstruction or gangrene K43.9 and History of CVA with residual deficit I69.30 [place] [address] [id number] [place] [address] 13853- 5511 Dec, Unspecified psychosis not due to a substance or known physiological condition F29 ; Personality disorder F60.9 and Factitious disorder imposed on self, recurrent episode F68.10 [place] [address] [id number] [place] [address] 30009- 1240 Dec, [place] [address] [id number] [place] [address] 65806- 0429 Dec, Back pain M54.9 [place] [address] [place] [id number] [place] [address] 11721- 1449 Dec, Factitious disorder imposed on self, recurrent episode F68.10 ; Personality disorder F60.9 ; Insomnia, unspecified type G47.00 and Anxiety F41.9 [place] [address] [address] [id number] [place] [address] 62175- 6618 Nov, Unspecified psychosis not due to a substance or known physiological condition F29 ; Personality disorder F60.9 and Factitious disorder imposed on self, recurrent episode F68.10 [place] [address] [address] 4458 Nov, Back pain M54.9 [facility] [address] [id number] [place] [address] 49451- 3390 Nov, Unspecified psychosis not due to a substance or known physiological condition F29 ; Personality disorder F60.9 and Factitious disorder imposed on self, recurrent episode F68.10 [facility] [address] [id number] [place] [address] 51174- 8076 October, [facility] [address] [id number] [place] [address] 36485- 9425 October, [facility] [address] [id number] [place] [address] 83106- 3251 October, Unspecified psychosis not due to a substance or known physiological condition F29 ; Personality disorder F60.9 and Factitious disorder imposed on self, recurrent episode F68.10 [facility] [address] [id number] [place] [address] 47135- 2181 October, Back pain M54.9 [facility] [address] [id number] [place] [address] 20743- 8144 October, Seizure disorder G40.909 ; Back pain M54.9 and Allergic state, subsequent encounter T78.40XD [facility] [id number] [place] [address] 92554- 9166 October, [facility] [address] [address] [id number] [place] [address] 32863- 6973 Sep, Back pain M54.9 [facility] [id number] [place] [address] 88119- 6117 Sep, Unspecified psychosis not due to a substance or known physiological condition F29 ; Personality disorder F60.9 and Factitious disorder imposed on self, recurrent episode F68.10 [facility] [address] [place] [address] 13276- 9580 Sep, [facility] [address] [place] [id number] [address] 1578 Sep, [facility] [address] [address]- 1045 Sep, [facility] [address] [address]- 4135 Sep, [facility] [address] [address]- 1820 Aug, [facility] [address] [address]- 2834 Aug, Back pain M54.9 [facility] [address] [address]- 4869 Aug, Factitious disorder imposed on self, recurrent episode F68.10 ; Personality disorder F60.9 ; Insomnia, unspecified type G47.00 and Anxiety F41.9 [facility] [address] [place] [id number] [address]- 4836 Aug, Back pain M54.9 ; Iron deficiency anemia, unspecified iron deficiency anemia type D50.9 ; Chronic kidney disease, unspecified stage N18.9 and Breast cancer screening Z12.31 [facility] [id number] [place] [id number] Jul, Back pain M54.9 [facility] [id number] [place] [id number] Jul, [facility] [address] [id number] [id number] Jul, [facility] [address] [id number] [id number] Jun, Back pain M54.9 [facility] [id number] [place] [id number] Jun, [facility] [id number] [place] [id number] Jun, Back pain M54.9 [facility] [address] [address]- 7997 Jun, Back pain M54.9 ; Seizure disorder G40.909 and Age-related osteoporosis without current pathological fracture M81.0 [facility] [address] [place] [id number] [place] [address] [id number] May, [facility] [address] [id number] [place] [address] 55163- 7886 May, Back pain M54.9 [facility] [address] [address] [id number] [place] [address] 00075- 0317 Apr, Back pain M54.9 ; Encounter for immunization Z23 ; Gastroesophageal reflux disease without esophagitis K21.9 ; Age-related osteoporosis without current pathological fracture M81.0 and Chronic pruritus L29.9 [facility] [address] [place] [address] 11854- 3721 Apr, History of CVA with residual deficit I69.30 [facility] [address] [id number] [place] [address] 85538- 9262 Apr, Factitious disorder imposed on self, recurrent episode F68.10 and Personality disorder F60.9 [facility] [id number] [address] Apr, Back pain M54.9 [facility] [address] [address]- 9390 Mar, Factitious disorder imposed on self, recurrent episode F68.10 [facility] [address] [address]- 4541 Mar, [facility] [address] [place] [id number] [place] [address] [id number] Mar, [facility] [address] [place] [address] [id number] [place] [address] [id number] Mar, Back pain M54.9 [facility] [address] [id number] [place] [address] 25040- 5060 Mar, Back pain M54.9 ; Seizure disorder G40.909 and Age-related osteoporosis without current pathological fracture M81.0 [place] [id number] [place] [address] 13577- 7251 Feb, History of CVA with residual deficit I69.30 [place] [address] [place] [id number] [place] [address] 99986- 2852 Feb, Factitious disorder imposed on self, recurrent episode F68.10 and Personality disorder F60.9 [place] [address] [place] [id number] [place] [address] 80428- 3331 15 Feb, 2017 Back pain M54.9 [place] [address] [place] [id number] [place] [address] 57331- 0763 Feb, [place] [address] [place] [id number] [place] [address] 65097- 9161 Jan, [facility] [address] [place] [id number] Jan, Age- related osteoporosis without current pathological fracture M81.0 and Allergic state, subsequent encounter T78.40XD [place] [address] [place] [id number] [place] [address] 11749- 1918 Jan, Factitious disorder imposed on self, recurrent episode F68.10 and Personality disorder F60.9 [facility] [id number] [place] [address] 84487- 0272 Dec, Back pain M54.9 [facility] [address] [place] [id number] [place] [address] 48523- 3280 Dec, Personality disorder F60.9 and Factitious disorder imposed on self, recurrent episode F68.10 [facility] [id number] [place] [address] [id number] Dec, Back pain M54.9 [facility] [id number] [place] [address] [id number] Dec, [facility] [id number] [id number] Dec, [facility] [address] [address]- 0026 Dec, [facility] [address] [address]- 6394 Nov, [facility] [address] [address] [id number] [place] [address] 09675- 3018 Nov, Back pain M54.9 ; Anemia, unspecified type D64.9 and History of colon polyps Z86.010 [facility] [id number] [place] [address] 77571- 6886 Nov, Back pain M54.9 [facility] [id number] [place] [address] [id number] October, Back pain M54.9 [facility] [address] [place] [address] [id number] October, Back pain M54.9 and Gastroesophageal reflux disease without esophagitis K21.9 [facility] [id number] [place] [address] [id number] Sep, [facility] [address] [address]- 4217 Sep, [facility] [address] [address]- 1942 Sep, [facility] [id number] [place] [address] 83970- 1913 Sep, [facility] [address] [address]- 6473 Sep, [facility] [id number] [place] [address] 14897- 8485 Sep, Seizure disorder G40.909 [facility] [address] [address]- 6649 Sep, Back pain M54.9 [facility] [address] [place] [id number] [address]- 7537 Sep, [facility] [id number] [place] [address] 178544- 9469 31 Aug, 2016 Back pain M54.9 [facility] [address] [address]- 4100 29 Aug, 2016 Seizure disorder G40.909 [facility] [id number] [place] [address] [id number] 17 Aug, 2016 [facility] [id number] [place] [address] [id number] 16 Aug, 2016 Back pain M54.9 [facility] [id number] [place] [address] [id number] 14 Aug, 2016 Back pain M54.9 [facility] [id number] [place] [address] [id number] 06 Aug, 2016 Back pain M54.9 [facility] [address] [place] [id number] Jul, Weakness R53.1 [facility] [id number] [place] [address] 54247- 4912 Jul, Seizure disorder G40.909 [facility] [address] [address]- 4536 Jul, [facility] [address] [address]- 8810 Jul, Breast cancer screening Z12.39 [facility] [address] [address]- 8412 Jul, [facility] [address] [address]- 8156 Jul, [facility] [address] [address]- 5692 Jul, [facility] [address] [address]- 1743 Jul, Seizure disorder G40.909 ; Fatigue, unspecified type R53.83 ; Perennial allergic rhinitis, unspecified allergic rhinitis trigger J30.89 and Chronic kidney disease, unspecified stage N18.9 [facility] [id number] [place] [address] 81789- 3842 Jul, [facility] [address] [id number] [place] [address] 91249- 3770 Jul, Seizure disorder G40.909 [facility] [id number] [place] [address] 51608- 6961 Jun, [place] [address] [place] [id number] [place] [address] 93317- 1093 Jun, [address] [id number] Jun, Perennial allergic rhinitis, unspecified allergic rhinitis trigger J30.89 [facility] [id number] [place] [address] [id number] Jun, [facility] [address] [place] [id number] [place] [address] 97485- 3851 Jun, Seizure disorder G40.909 [facility] [id number] [place] [address] [id number] Jun, [facility] [id number] [place] [address] [id number] May, [facility] [address] [address]- 8761 May, [facility] [id number] [place] [address] 54945- 6458 May, [facility] [id number] [place] [address] 72608- 8198 May, [facility] [id number] [place] [address] 61667- 5169 May, History of CVA with residual deficit I69.30 [facility] [id number] [place] [address] 97700- 1205 May, [facility] [id number] [place] [address] 86717- 3748 May, [facility] [id number] [place] [address] 63484- 0342 May, [facility] [id number] [place] [address] 74327- 8002 May, Seizure disorder G40.909 [facility] [id number] [place] [address] 46412- 9216 May, [facility] [address] [place] [address] May, Back pain M54.9 and Seizure disorder G40.909 [facility] [id number] [place] [address] 11016- 0792 Apr, [facility] [id number] [place] [address] 34279- 3736 Apr, Back pain M54.9 [facility] [id number] [place] [address] 18246- 1803 Mar, [facility] [address] [place] [address] Mar, Insomnia, unspecified type G47.00 [facility] [id number] [place] [address] 79008- 8637 Mar, [facility] [id number] [place] [address] 85651- 9566 Feb, [facility] [id number] [place] [address] 80084- 0842 21 Feb, 2016 [facility] [id number] [place] [address] 20086- 8977 16 Feb, 2016 [facility] [id number] [place] [address] 90148- 5650 Jan, [facility] [id number] [place] [address] 80632- 8449 Jan, [facility] [place] [address] [place] [address] Jan, Seizure disorder G40.909 and Back pain M54.9 [facility] [id number] [place] [address] 32849- 7349 Dec, [facility] [id number] [place] [address] 60086- 9044 Dec, [facility] [id number] [place] [address] 19329- 7363 Dec, [facility] [id number] [place] [address] 00251- 2861 Nov, [facility] [id number] [place] [address] 33876- 2163 Nov, [facility] [id number] [place] [address] 33240- 2556 Nov, Back pain M54.9 [facility] [id number] [place] [address] 97010- 1667 October, [facility] [id number] [place] [address] 14751- 9917 October, Back pain M54.9 [facility] [id number] [place] [address] 09150- 7044 October, Seizure disorder G40.909 and B12 deficiency E53.8 [facility] [id number] [place] [address] 04445- 1585 Sep, History of CVA with residual deficit I69.30 [facility] [address] [place] [address] 02964- 4939 Sep, [facility] [id number] [place] [address] 50827- 9852 Sep, [facility] [id number] [place] [address] 22282- 5300 Sep, Back pain M54.9 [facility] [id number] [place] [address] 05350- 9032 Sep, Seizure disorder G40.909 [facility] [id number] [place] [address] 29196- 8950 Aug, Back pain M54.9 [facility] [id number] [place] [address] 28390- 5068 Aug, Seizure disorder G40.909 [facility] [id number] [place] [address] 36379- 7961 16 Aug, 2015 Back pain M54.9 [facility] [id number] [place] [address] 75056- 1858 14 Aug, 2015 Heart failure, unspecified I50.9 [facility] [id number] [place] [address] 16278- 5254 14 Aug, 2015 Medication monitoring encounter Z51.81 [facility] [id number] [place] [address] 65224- 3358 15 Jul, 2015 [facility] [id number] [place] [address] 34934- 5638 09 Jul, 2015 Seizure disorder G40.909 [facility] [id number] [place] [address] 09418- 7485 05 Jul, 2015 Back pain M54.9 [facility] [id number] [place] [address] 67460- 1590 Jun, [facility] [id number] [place] [address] 26491- 9897 Jun, [facility] [address] [place] [address] 72967- 1904 Jun, Mental status change R41.82 ; History of CVA with residual deficit I69.30 ; Back pain M54.9 and Seizure disorder G40.909 [facility] [id number] [address] Jun, [facility] [id number] [address] May, [facility] [id number] [address] Apr, [facility] [id number] [address] Apr, Medication monitoring encounter Z51.81 [facility] [id number] [place] [address] Mar, Vomiting R11.10 [facility] [id number] [address] Mar, [facility] [id number] [address] Feb, [facility] [id number] [address] Feb, UTI (urinary tract infection) 599.0 [facility] [id number] [address] Jan, [facility] [id number] [address] Jan, [facility] [id number] [address] Jan, [facility] [id number] [address] Dec, [facility] [id number] [address] Dec, [facility] [id number] [address] Dec, [facility] [address] [facility] [id number] [place] [address] Dec, [facility] [place] [facility] [address] [id number] [place] [address] Nov, UNKNOWN Nov, [facility] [place] [facility] [address] [id number] [place] [address] October, [facility] [place] [facility] [address] [id number] [place] [address] Sep, [facility] [place] [facility] [address] [id number] [place] [address] Sep, [facility] [place] [facility] [address] [id number] [place] [address] Aug, [facility] [place] [facility] [address] [facility] [id number] [place] [address] Aug, [facility] [place] [facility] [address] [id number] [place] [address] Jul, [facility] [place] [facility] [address] [id number] [place] [address] 5182 Jul, [facility] [place] [facility] [address] [facility] [id number] [place] [address] 0367 Jul, [facility] [place] [facility] [address] [facility] [id number] [place] [address]- 2597 Jul, [facility] [place] [facility] [address] [id number] [place] [address] 1396 Jul, [facility] [place] [facility] [address] [id number] [place] [address]- 1026 Jun, [facility] [place] [facility] [address] [id number] [place] [address]- 6076 Jun, [facility] [place] [facility] [address] [id number] [place] [address] Jun, [facility] [place] [facility] [address] [id number] [place] [address] 4[address] Jun, [facility] [place] [facility] [address] [id number] [place] [address]- 0093 Jun, [facility] [place] [facility] [address] [id number] [place] [address] 8578 Jun, [facility] [place] [facility] [address] [id number] [place] [address]- 0406 Jun, [facility] [place] [facility] [address] [id number] [place] [address]- 9899 Jun, [facility] [place] [facility] [address] [id number] [place] [address]- 3742 Jun, [facility] [place] [facility] [address] [id number] [place] [address]- 2989 Jun, [facility] [place] [facility] [address] [id number] [place] [address] 1986 Jun, [facility] [place] [facility] [address] [id number] [place] [address]- 6915 Jun, [facility] [place] [facility] [address] [id number] [place] [address]- 4175 Jun, [facility] [place] [facility] [address] [id number] [place] [address]- 8140 Jun, [facility] [place] [facility] [address] [id number] [place] [address]- 7874 Jun, [facility] [place] [facility] [address] [id number] [place] [address]- 1487 Jun, [facility] [place] [facility] [address] [id number] [place] [address]- 6778 Jun, [facility] [place] [facility] [address] [id number] [place] [address]- 8770 Jun, [facility] [place] [facility] [address] [id number] [place] [address]- 5814 May, [facility] [place] [facility] [address] [id number] [place] [address]- 5305 May, [facility] [address] [id number] [place] [address] 2[address] May, [facility] [place] [facility] [address] [id number] [place] [address]- 9903 May, [facility] [address] [id number] [place] [address]- 0596 May, [facility] [place] [facility] [address] [id number] [place] [address]- 0692 May, [facility] [address] [id number] [place] [address]- 1808 May, [facility] [address] [id number] [place] [address]- 5520 May, [facility] [address] [id number] [place] [address]- 6330 May, [facility] [address] [place] [id number] May, [facility] [address] [id number] [place] [address] 1951 May, [facility] [address] [id number] [place] [address] 1979 May, [facility] [place] [facility] [address] [id number] [place] [address]- 0056 May, [facility] [place] [facility] [address] [id number] [place] [address]- 7486 Apr, [facility] [place] [facility] [address] [id number] [place] [address]- 0174 Apr, [facility] [place] [facility] [address] [id number] [place] [address]- 2006 Apr, [facility] [place] [facility] [address] [id number] [place] [address]- 4087 Apr, [facility] [place] [facility] [address] [id number] [place] [address]- 2785 Apr, [facility] [place] [facility] [address] [id number] [place] [address]- 7317 Apr, [facility] [place] [facility] [address] [id number] [place] [address]- 5677 Mar, [facility] [place] [facility] [address] [id number] [place] [address]- 7752 Mar, [facility] [place] [facility] [address] [id number] [place] [address]- 3781 Mar, [facility] [place] [facility] [address] [id number] [place] [address]- 7940 Mar, [facility] [place] [facility] [address] [id number] [place] [address]- 7577 Mar, [facility] [place] [facility] [address] [id number] [place] [address]- 1973 Mar, [facility] [place] [facility] [address] [id number] [place] [address]- 0446 Feb, [facility] [place] [facility] [address] [id number] [place] [address]- 8103 24 Feb, 2014 [facility] [place] [facility] [address] [id number] [place] [address]- 3615 Feb, [facility] [place] [facility] [address] [id number] [place] [address]- 1274 23 Feb, 2013 [facility] [place] [facility] [address] [id number] [place] [address]- 2807 19 Feb, 2014 [facility] [place] [facility] [address] [id number] [place] [address]- 3433 Feb, [facility] [place] [facility] [address] [id number] [place] [address]- 5723 Feb, [facility] [place] [facility] [address] [id number] [place] [address]- 1615 Feb, [facility] [place] [facility] [address] [id number] [place] [address]- 9631 Feb, [facility] [place] [facility] [address] [id number] [place] [address]- 5903 Feb, [facility] [address] [id number] Feb, [facility] [place] [facility] [address] [id number] [place] [address]- 7240 Feb, [facility] [place] [facility] [address] [id number] [place] [address]- 8533 Jan, [facility] [place] [facility] [address] [id number] [place] [address]- 4047 Jan, [facility] [place] [facility] [address] [id number] [place] [address]- 7832 Dec, [facility] [place] [facility] [address] [id number] [place] [address]- 1225 Dec, [facility] [place] [facility] [address] [id number] [place] [address]- 0172 Dec, [facility] [place] [facility] [address] [id number] [place] [address]- 7967 Dec, [facility] [place] [facility] [address] [id number] [place] [address]- 4980 Dec, [facility] [place] [facility] [address] [id number] [place] [address]- 8480 Dec, [facility] [place] [facility] [address] [id number] [place] [address]- 2385 Dec, [facility] [place] [facility] [address] [id number] [place] [address]- 2114 Dec, [facility] [place] [facility] [address] [id number] [place] [address]- 3061 Dec, [facility] [place] [facility] [address] [id number] [place] [address]- 1912 Dec, [facility] [place] [facility] [address] [id number] [place] [address]- 4039 Nov, [facility] [place] [facility] [address] [id number] [place] [address]- 2411 Nov, [facility] [place] [facility] [address] [id number] [place] [address]- 3797 Nov, [facility] [place] [facility] [address] [id number] [place] [address]- 3825 Nov, [facility] [place] [facility] [address] [id number] [place] [address]- 9561 Nov, [facility] [place] [facility] [address] [id number] [place] [address]- 4389 Nov, [facility] [place] [facility] [address] [id number] [place] [address]- 4249 Nov, [facility] [place] [facility] [address] [id number] [place] [address]- 7844 Nov, [facility] [place] [facility] [address] [id number] [place] [address]- 6805 Nov, [facility] [place] [facility] [address] [id number] [place] [address]- 1841 Nov, [facility] [place] [facility] [address] [id number] [place] [address]- 2536 Nov, [facility] [place] [facility] [address] [id number] [place] [address]- 5034 Nov, [facility] [place] [facility] [address] [id number] [place] [address]- 2985 Nov, [facility] [place] [facility] [address] [id number] [place] [address]- 9815 Nov, [facility] [place] [facility] [address] [id number] [place] [address]- 8852 October, [facility] [place] [facility] [address] [id number] [place] [address]- 5728 October, [facility] [place] [facility] [address] [id number] [place] [address]- 4203 October, [facility] [place] [facility] [address] [id number] [place] [address]- 1650 October, [facility] [place] [facility] [address] [id number] [place] [address]- 7789 October, [facility] [place] [facility] [address] [id number] [place] [address]- 9215 October, [facility] [place] [facility] [address] [id number] [place] [address]- 1143 October, [facility] [place] [facility] [address] [id number] [place] [address]- 0239 October, [facility] [place] [facility] [address] [id number] [place] [address]- 0851 October, [facility] [place] [facility] [address] [id number] [place] [address]- 1699 October, [facility] [place] [facility] [address] [id number] [place] [address]- 6025 Sep, [facility] [place] [facility] [address] [id number] [place] [address]- 1723 Sep, [facility] [place] [facility] [address] [id number] [place] [address]- 9067 Sep, [facility] [place] [facility] [address] [id number] [place] [address]- 2269 Sep, [facility] [place] [facility] [address] [id number] [place] [address]- 0548 Sep, [facility] [place] [facility] [address] [id number] [place] [address]- 9137 Sep, [facility] [place] [facility] [address] [id number] [place] [address]- 6306 Sep, [facility] [place] [facility] [address] [id number] [place] [address]- 5005 Sep, [facility] [place] [facility] [address] [id number] [place] [address]- 5781 Sep, [facility] [place] [facility] [address] [id number] [place] [address]- 0687 Sep, [facility] [place] [facility] [address] [id number] [place] [address]- 7503 Aug, [facility] [place] [facility] [address] [id number] [place] [address]- 9625 Aug, [facility] [place] [facility] [address] [id number] [place] [address]- 9032 Aug, [facility] [place] [facility] [address] [id number] [place] [address]- 2163 Aug, [facility] [place] [facility] [address] [id number] [place] [address]- 3186 Aug, [facility] [place] [facility] [address] [id number] [place] [address]- 5808 Aug, [facility] [place] [facility] [address] [id number] [place] [address]- 7763 Aug, [facility] [place] [facility] [address] [id number] [place] [address]- 9110 Aug, [facility] [place] [facility] [address] [id number] [place] [address]- 8683 Aug, [facility] [place] [facility] [address] [id number] [place] [address]- 7327 Jul, [facility] [place] [facility] [address] [id number] [place] [address]- 3246 Jul, [facility] [place] [facility] [address] [id number] [place] [address]- 5063 Jul, [facility] [place] [facility] [address] [id number] [place] [address]- 4807 Jul, [facility] [place] [facility] [address] [id number] [place] [address]- 3516 Jul, [facility] [place] [facility] [address] [id number] [place] [address]- 2546 Jul, [facility] [place] [facility] [address] [id number] [place] [address]- 7704 Jul, [facility] [place] [facility] [address] [id number] [place] [address]- 5964 Jul, [facility] [place] [facility] [address] [id number] [place] [address]- 7596 Jul, [facility] [place] [facility] [address] [id number] [place] [address]- 9486 Jul, [facility] [place] [facility] [address] [id number] [place] [address]- 3698 Jul, [facility] [place] [facility] [address] [id number] [place] [address]- 3287 Jul, [facility] [place] [facility] [address] [id number] [place] [address]- 5836 Jul, [facility] [place] [facility] [address] [id number] [place] [address]- 3948 Jul, [facility] [place] [facility] [address] [id number] [place] [address]- 8848 Jul, [facility] [place] [facility] [address] [id number] [place] [address]- 7104 Jul, [facility] [place] [facility] [address] [id number] [place] [address]- 1522 Jun, [facility] [place] [facility] [address] [id number] [place] [address]- 9269 Jun, [facility] [place] [facility] [address] [id number] [place] [address]- 7712 16 Jun, 2013 [facility] [address] [id number] [place] [address]- 6046 16 Jun, 2013 [facility] [place] [facility] [address] [id number] [place] [address]- 4530 Jun, [facility] [address] [id number] [place] [address]- 7971 Jun, [facility] [place] [facility] [address] [id number] [place] [address]- 6549 May, [facility] [address] [id number] [place] [address]- 9259 May, [facility] [place] [facility] [address] [id number] [place] [address]- 8706 May, [facility] [address] [id number] [place] [address]- 6304 May, [facility] [place] [facility] [address] [id number] [place] [address]- 8420 Apr, [facility] [address] [id number] [place] [address]- 9405 Apr, [facility] [address] [id number] [place] [address]- 6553 Apr, [facility] [place] [facility] [address] [id number] [place] [address]- 1193 Apr, [facility] [place] [facility] [address] [id number] [place] [address]- 0662 Apr, [facility] [place] [facility] [address] [id number] [place] [address]- 4725 Apr, [facility] [place] [facility] [address] [id number] [place] [address]- 9399 Apr, [facility] [place] [facility] [address] [id number] [place] [address]- 9949 Apr, [facility] [place] [facility] [address] [id number] [place] [address]- 7640 18 Apr, 2013 [facility] [place] [facility] [address] [id number] [place] [address]- 5877 18 Apr, 2013 [facility] [place] [facility] [address] [id number] [place] [address]- 0127 Apr, [facility] [place] [facility] [address] [id number] [place] [address]- 2693 Apr, [facility] [place] [facility] [address] [id number] [place] [address]- 4269 Mar, [facility] [place] [facility] [address] [id number] [place] [address]- 6622 28 Mar, 2013 [facility] [place] [facility] [address] [id number] [place] [address]- 6784 16 Mar, 2013 [facility] [place] [facility] [address] [id number] [place] [address]- 5121 16 Mar, 2013 [facility] [place] [facility] [address] [id number] [place] [address]- 2603 15 Mar, 2013 [facility] [place] [facility] [address] [id number] [place] [address]- 9609 15 Mar, 2013 [facility] [place] [facility] [address] [id number] [place] [address]- 2382 27 Sep, 2012 [facility] [place] [facility] [address] [id number] [place] [address]- 9825 25 Sep, 2012 [facility] [place] [facility] [address] [id number] [place] [address]- 2543 25 Sep, 2012 [facility] [place] [facility] [address] [id number] [place] [address]- 254 23 Sep, 2012 [facility] [place] [facility] [address] [id number] [place] [address]- 2210 17 Sep, 2012 [facility] [place] [facility] [address] [id number] [place] [address]- 7566 Feb, [facility] [place] [facility] [address] [id number] [place] [address]- 8449 Feb, [facility] [place] [facility] [address] [id number] [place] [address]- 3564 Jan, [facility] [place] [facility] [address] [id number] [place] [address]- 8404 Jan, [facility] [place] [facility] [address] [id number] [place] [address]- 4272 Jan, [facility] [place] [facility] [address] [id number] [place] [address]- 3166 Jan, [facility] [place] [facility] [address] [id number] [place] [address]- 3632 Jan, [facility] [place] [facility] [address] [id number] [place] [address]- 0811 Jan, [facility] [place] [facility] [address] [id number] [place] [address]- 5479 Jan, [facility] [place] [facility] [address] [id number] [place] [address]- 9843 Dec, [facility] [place] [facility] [address] [id number] [place] [address]- 7764 Dec, [facility] [place] [facility] [address] [id number] [place] [address]- 2818 Dec, [facility] [place] [facility] [address] [id number] [place] [address]- 3463 Dec, [facility] [place] [facility] [address] [id number] [place] [address]- 8864 Dec, [facility] [place] [facility] [address] [id number] [place] [address]- 2777 Dec, [facility] [place] [facility] [address] [id number] [place] [address]- 2930 Nov, [facility] [place] [facility] [address] [id number] [place] [address]- 4244 Nov, [facility] [address] [id number] [place] [address]- 2707 Nov, [facility] [address] [id number] [place] [address]- 3763 Nov, [facility] [address] [id number] [place] [address]- 1236 October, [facility] [address] [id number] [place] [address]- 0975 October, [facility] [address] [id number] [place] [address]- 7766 October, [facility] [address] [id number] [place] [address] October, [facility] [address] [id number] [place] [address] Sep, [facility] [address] [id number] [place] [address] Sep, [facility] [address] [id number] [place] [address] Sep, [facility] [address] [id number] [place] [address] Sep, [facility] [address] [id number] [place] [address] Sep, [facility] [address] [id number] [place] [address] Sep, [facility] [address] [id number] [place] [address] Sep, [facility] [address] [id number] [place] [address] Sep, [facility] [address] [id number] [place] [address] Aug, [facility] [address] [id number] [place] [address] 13 Aug, 2012 [facility] [place] [facility] [address] [id number] [place] [address] 05 Aug, 2012 [facility] [address] [id number] [place] [address] 18 Jul, 2012 [facility] [place] [facility] [address] [id number] [place] [address] 08 Jul, 2012 [facility] [address] [id number] [place] [address] 07 Jul, 2012 [facility] [place] [facility] [address] [id number] [place] [address] 06 Jul, 2012 [facility] [address] [id number] [place] [address] 05 Jul, 2012 [facility] [address] [id number] [place] [address] Jun, [facility] [address] [id number] [place] [address] Jun, [facility] [address] [id number] [place] [address] Jun, [facility] [address] [id number] [place] [address] May, [facility] [place] [facility] [address] [id number] [place] [address] May, [facility] [place] [facility] [address] [id number] [place] [address] May, [facility] [place] [facility] [address] [id number] [place] [address] May, [facility] [place] [facility] [address] [id number] [place] [address]- [address] May, [facility] [place] [facility] [address] [id number] [place] [address] May, [facility] [place] [facility] [address] [id number] [place] [address] May, [facility] [place] [facility] [address] [id number] [place] [address] Apr, [facility] [place] [facility] [address] [id number] [place] [address] Apr, [facility] [place] [facility] [address] [id number] [place] [address] Apr, [facility] [place] [facility] [address] [id number] [place] [address] Apr, [facility] [place] [facility] [address] [id number] [place] [address] Apr, [facility] [place] [facility] [address] [id number] [place] [address] Apr, [facility] [place] [facility] [address] [id number] [place] [address]- [address] Apr, [facility] [place] [facility] [address] [id number] [place] [address]- [address] Apr, [facility] [place] [facility] [address] [facility] [id number] [place] [address] Apr, [facility] [place] [facility] [address] [id number] [place] [address] Apr, [facility] [place] [facility] [address] [id number] [place] [address] Apr, [facility] [place] [facility] [address] [id number] [place] [address] Mar, [facility] [place] [facility] [address] [id number] [place] [address] Mar, [facility] [place] [facility] [address] [id number] [place] [address] Mar, [facility] [place] [facility] [address] [id number] [place] [address] Mar, [facility] [place] [facility] [address] [id number] [place] [address]- [address] Mar, [facility] [place] [facility] [address] [id number] [place] [address] Mar, [facility] [place] [facility] [address] [id number] [place] [address]- 14[address] Mar, [facility] [place] [facility] [address] [id number] [place] [address]- [address] Mar, [facility] [place] [facility] [address] [id number] [place] [address]- 77[address] Mar, [facility] [place] [facility] [address] [id number] [place] [address]- [address] Mar, [facility] [place] [facility] [address] [id number] [place] [address]- [address] 04 Mar, 2012 [facility] [place] [facility] [address] [id number] [place] [address]- [address] 28 Sep2011 [facility] [place] [facility] [address] [id number] [place] [address]- 56[address] 27 Sep2011 [facility] [place] [facility] [address] [id number] [place] [address]- [address] 27 Sep2011 [facility] [place] [facility] [address] [id number] [place] [address] 26 Sep, 2011 [facility] [place] [facility] [address] [id number] [place] [address] 24 Sep, 2011 [facility] [place] [facility] [address] [id number] [place] [address]- 2916 19 Sep2011 [facility] [place] [facility] [address] [id number] [place] [address]- [address] 18 Sep, 2011 [facility] [place] [facility] [address] [id number] [place] [address]- [address] Feb, [facility] [place] [facility] [address] [id number] [place] [address]- [address] Feb, [facility] [place] [facility] [address] [id number] [place] [address]- 38[address] Jan, [facility] [place] [facility] [address] [id number] [place] [address]- 97[address] Jan, [facility] [place] [facility] [address] [id number] [place] [address]- 8587 Jan, [facility] [place] [facility] [address] [id number] [place] [address]- [address] Jan, [facility] [place] [facility] [address] [id number] [place] [address]- [address] Dec, [facility] [place] [facility] [address] [id number] [place] [address] Dec, [facility] [place] [facility] [address] [id number] [place] [address] Dec, [facility] [place] [facility] [address] [id number] [place] [address] Dec, [facility] [place] [facility] [address] [id number] [place] [address] Dec, [facility] [place] [facility] [address] [id number] [place] [address] Dec, [facility] [place] [facility] [address] [id number] [place] [address] Dec, [facility] [place] [facility] [address] [id number] [place] [address] Dec, [facility] [place] [facility] [address] [id number] [place] [address] Dec, [facility] [place] [facility] [address] [id number] [place] [address] Dec, [facility] [place] [facility] [address] [id number] [place] [address] Dec, [facility] [address] [id number] [place] [address] Dec, [facility] [place] [facility] [address] [id number] [place] [address] Dec, [facility] [address] [id number] [place] [address] Dec, [facility] [place] [facility] [address] [id number] [place] [address] Nov, [facility] [address] [id number] [place] [address] Nov, [facility] [address] [id number] [place] [address] Nov, [facility] [address] [id number] [place] [address] Nov, [facility] [address] [id number] [place] [address] Nov, [facility] [address] [id number] [place] [address] Nov, [facility] [address] [id number] [place] [address] October, [facility] [place] [facility] [address] [id number] [place] [address] October, [facility] [address] [id number] [place] [address] 2640 October, [facility] [place] [facility] [address] [id number] [place] [address] 57[address] October, [facility] [place] [facility] [address] [id number] [place] [address] Sep, [facility] [place] [facility] [address] [id number] [place] [address] 8915 Sep, [facility] [address] [id number] [place] [address] 13 Sep, 2011 [facility] [address] [id number] [place] [address] 09 Sep, 2011 [facility] [address] [id number] [place] [address] Sep, [facility] [address] [id number] [place] [address]26 Aug, [facility] [address] [id number] [place] [address]117 Aug, [facility] [address] [id number] [place] [address] 4430 Aug, [facility] [address] [facility] [id number] [place] [address]10 Aug, [facility] [address] [facility] [id number] [address] Aug, [facility] [address] [facility] [id number] [place] [address] 9872 Aug, [facility] [address] [facility] [id number] [place] [address]95 Aug, [facility] [address] [facility] [id number] [place] [address]49 16 Jul, 2011 [facility] [place] [facility] [address] [facility] [id number] [place] [address]79 16 Jul, 2011 [facility] [address] [facility] [id number] [place] [address] 8510 15 Jul, 2011 [facility] [address] [facility] [id number] [place] [address] 15 Jul, 2011 [facility] [address] [facility] [id number] [place] [address]061 24 Jun, [address] [id number] Jun, [facility] [address] [id number] [place] [address] 2959 Jun, [facility] [place] [facility] [address] [id number] [place] [address] 8316 Jun, [facility] [place] [facility] [address] [id number] [place] [address] 7706 Jun, [facility] [place] [facility] [address] [id number] [place] [address]- 2656 Jun, [facility] [place] [facility] [address] [id number] [place] [address] 4253 Jun, [facility] [place] [facility] [address] [id number] [place] [address] 4919 Jun, [facility] [place] [facility] [address] [id number] [place] [address]- 8171 May, [facility] [place] [facility] [address] [id number] [place] [address]- 8017 May, [facility] [place] [facility] [address] [id number] [place] [address]- 6312 May, [facility] [place] [facility] [address] [id number] [place] [address]- 9057 May, [facility] [place] [facility] [address] [id number] [place] [address]- 4636 May, [facility] [place] [facility] [address] [id number] [place] [address]- 3044 May, [facility] [place] [facility] [address] [id number] [place] [address]- 8446 May, [facility] [place] [facility] [address] [id number] [place] [address] 2541 Apr, [facility] [place] [facility] [address] [id number] [place] [address]- 7575 Apr, [facility] [place] [facility] [address] [id number] [place] [address] 9130 Apr, [facility] [place] [facility] [address] [id number] [place] [address]- 7149 27 Mar, 2011 [facility] [place] [facility] [address] [id number] [place] [address]- 9336 20 Mar, 2011 [facility] [place] [facility] [address] [id number] [place] [address]- 8636 14 Mar, 2011 [facility] [place] [facility] [address] [id number] [place] [address]- 0063 11 Mar, 2011 [facility] [place] [facility] [address] [id number] [place] [address]- 6907 10 Mar, 2011 [facility] [place] [facility] [address] [id number] [place] [address]- 3657 10 Mar, 2011 [facility] [place] [facility] [address] [id number] [place] [address]- 3521 Mar, [facility] [place] [facility] [address] [id number] [place] [address]- 0944 Jan, [facility] [place] [facility] [address] [id number] [place] [address]- 4420 27 May, 2010 [facility] [place] [facility] [address] [id number] [place] [address]- 3583 May, [facility] [place] [facility] [address] [id number] [place] [address] 2546 May, [facility] [place] [facility] [address] [id number] [place] [address]- 2545 May, [facility] [place] [facility] [address] [id number] [place] [address]- 3968 10 May, 2010 [facility] [place] [facility] [address] [id number] [place] [address] 2546 06 May, 2010 [facility] [place] [facility] [address] [id number] [place] [address] Apr, [facility] [place] [facility] [address] [id number] [place] [address]- 3072 Apr, [facility] [place] [facility] [address] [id number] [place] [address]- 1770 Apr, [facility] [place] [facility] [address] [id number] [place] [address]- 6865 Apr, [facility] [place] [facility] [address] [id number] [place] [address]- 2599 Apr, [facility] [place] [facility] [address] [id number] [place] [address]- 7826 Apr, [facility] [place] [facility] [address] [id number] [place] [address]- 0233 Apr, [facility] [place] [facility] [address] [id number] [place] [address]- 5835 Apr, [facility] [place] [facility] [address] [id number] [place] [address]- 9274 Apr, [facility] [place] [facility] [address] [id number] [place] [address]- 9549 Apr, [facility] [place] [facility] [address] [facility] [id number] [place] [address]- 6415 Mar, [facility] [place] [facility] [address] [id number] [place] [address]- 2268 Mar, [facility] [place] [facility] [address] [id number] [place] [address]- 5310 Mar, [facility] [place] [facility] [address] [id number] [place] [address]- 2140 Mar, [facility] [place] [facility] [address] [id number] [place] [address]- 7275 Mar, [facility] [place] [facility] [address] [id number] [place] [address]- 7201 Dec, [facility] [place] [facility] [address] [id number] [place] [address]- 1556 Nov, IMMUNIZATIONS No Known Immunizations SOCIAL HISTORY Never Assessed REASON FOR VISIT Hospital f/u from a grandmal seizer at 09/18/2017 -Sarah OTERO PLAN OF CARE Activity Details Follow Up 2 Months Reason: VITAL SIGNS Height 62 in 2017-10-24 Weight 112.7 lbs 2017-10-24 Temperature 98.2 degrees Fahrenheit 2017-10-24 Heart Rate 48 bpm 2017-10-24 Respiratory Rate 18 2017-10-24 Oximetry 98 % 2017-10-24 BMI 20.61 kg/m2 2017-10-24 Blood pressure systolic 152 mmHg 2017-10-24 Blood pressure diastolic 58 mmHg 2017-10-24 MEDICATIONS Medication Instructions Dosage Frequency Start Date End Date Duration Status Sodium Bicarbonate 650 MG Orally Once a day 1 tablet 24h Unknown Citalopram Hydrobromide 10 MG Orally Once a day 1 tablet 24h 30 days Unknown Acetaminophen 650 MG Orally every 6 hrs 1 tablet as needed 6h Unknown Folic Acid 1 MG TAKE 1 TABLET BY MOUTH EVERY DAY 30 Unknown Lipitor 40 mg Orally Once a day 1 tablet 24h Unknown Vitamin B-12 1000 MCG/ML Injection every 14 days 1 ml Unknown Tussin Cough DM 100-10 MG/5ML Orally every 6 hrs as needed for cough 10 ml as needed Unknown Clorazepate Dipotassium 3.75 MG Orally Twice a day 1 tablets 12h 28 Unknown Vitamin D (Ergocalciferol) 23239 UNIT Orally 2 times a day every 7 days 1 capsule Unknown Fexofenadine HCl 180 MG Orally Once a day 1 tablet 24h Unknown Ibuprofen 200 mg Orally every 6 hours as needed for headache 2 tablets Unknown Nitro-Dur 0.2 MG/HR Transdermal Once a day 1 patch to skin remove after 12 hours 24h Unknown Hydrocortisone 2.5 % Externally every 24 hours as needed for dry skin 1 application to affected area Unknown Zofran ODT 4 mg Orally every 8 hrs 1 tablet on the tongue and allow to dissolve 8h Unknown Refresh Tears 0.5 % 1 drop into affected eye as needed Unknown Metoprolol Tartrate 25 MG TAKE 1 TABLET BY MOUTH TWICE DAILY 30 Unknown MiraLax Orally twice a day 17 GM 12h Unknown Refresh Liquigel 1 % Ophthalmic 4 times a day 1 drop into affected eye as needed 6h Unknown Phenytoin Sodium Extended 100 mg 1 capsule in AM and 1 1/2 tabs in PM Sep, Unknown Lamotrigine 100 MG TAKE 1 TABLET BY MOUTH TWICE DAILY 30 Unknown Bisacodyl 10 mg Rectal Once a day prn 1 suppository as needed Unknown Melatonin 5 MG Orally at bedtime 1 tablet 30 days Unknown Coumadin 1 MG Orally Alternate 1 mg and 1.5 mg every other day .... Unknown Omeprazole 20 mg Orally every 4 hours as needed prn pain 1 capsule Unknown Gabapentin 400 MG TAKE 1 CAPSULE BY MOUTH AT BEDTIME 30 Unknown Cephalexin 500 mg Orally 2 times a day 1 capsule 12h Unknown Fluticasone Propionate 50 MCG/ACT INSTILL 1 SPRAY IN EACH NOSTRIL TWICE DAILY 30 Unknown Jantoven 1 MG TAKE 1&1/2 TABLET BY MOUTH EVERY OTHER DAY ALTERNATING WITH WITH 2 MG DOSE. 29 Unknown Topiramate 100 MG TAKE 1 TABLET BY MOUTH TWICE DAILY 30 Unknown Fioricet 50-300-40 MG Orally every 6 hrs prn 1 capsule as needed Unknown Fentanyl 75 MCG/HR Transdermal every 72 hours 1 patch to skin Sep, 30 days Unknown Restasis 0.05 % 1 DROP EACH EYE TWICE DAILY 30 Unknown RESULTS No Results PROCEDURES Procedure Date Ordered Result Body Site [facility] VISIT ESTABLISHED PATIENT October 24, 2017 INSTRUCTIONS MEDICATIONS ADMINISTERED No Known Medications MEDICAL [...] surgery and skin graft, cholecysectomy Hospitalization History [facility] 12/2016 Hospitalization History [facility] 08/2017
--- OUTSIDE RECORDS SUMMARY | 2018-02-04 13:07 | XMS REPORT ---
Author Author NAHOMY BETH Organization [facility] Address [address] [place] [address] Care Team Providers Care Control Officer Name Role Phone NAHOMY BETH Unavailable PROBLEMS Type Condition ICD9-CM Code LEW56-OA Code Onset Dates Condition Status SNOMED Code Problem Anemia, unspecified type D64.9 Active 248783121 Problem Personality disorder F60.9 Active 63258877 Problem Factitious disorder imposed on self, recurrent episode F68.10 Active 15519970 Problem Ventral hernia without obstruction or gangrene K43.9 Active 607990586 Problem Allergic state, subsequent encounter T78.40XD Active 493736956 Problem Anxiety F41.9 Active 86358524 Problem Age-related osteoporosis without current pathological fracture M81.0 Active 30797888 Problem Unspecified psychosis not due to a substance or known physiological condition F29 Active 86885181 Problem Iron deficiency anemia, unspecified iron deficiency anemia type D50.9 Active 67568223 Problem History of CVA with residual deficit I69.30 Active 686735781 Problem Seizure disorder G40.909 Active 648389208 Problem Perennial allergic rhinitis, unspecified allergic rhinitis trigger J30.89 Active 202519835 Problem Chronic kidney disease, unspecified stage N18.9 Active 689833875 Problem Back pain M54.9 Active 180627331 Problem Gastroesophageal reflux disease without esophagitis K21.9 Active 734785392 Problem Insomnia, unspecified type G47.00 Active 313590826 Problem History of colon polyps Z86.010 Active 922305122 ALLERGIES No Information ENCOUNTERS Encounter Location Date Diagnosis [facility] [address] [id number], [place] [address] Feb, [facility] [address] [facility] [id number] [address] Jan, [facility] [id number] [place] [address] 46930- 5457 Jan, Unspecified psychosis not due to a substance or known physiological condition F29 ; Personality disorder F60.9 and Factitious disorder imposed on self, recurrent episode F68.10 [facility] [id number] [place] [address] 19315- 2862 Dec, Back pain M54.9 ; Seizure disorder G40.909 ; Ventral hernia without obstruction or gangrene K43.9 and History of CVA with residual deficit I69.30 [place] [id number] [place] [address] 63104- 4145 Dec, Unspecified psychosis not due to a substance or known physiological condition F29 ; Personality disorder F60.9 and Factitious disorder imposed on self, recurrent episode F68.10 [place] [id number] [place] [address] 98943- 4903 Dec, [place] [id number] [place] [address] 96985- 2583 Dec, Back pain M54.9 [place] [id number] [place] [address] 86425- 1078 Dec, Factitious disorder imposed on self, recurrent episode F68.10 ; Personality disorder F60.9 ; Insomnia, unspecified type G47.00 and Anxiety F41.9 [place] [id number] [place] [address] 61981- 3171 Nov, Unspecified psychosis not due to a substance or known physiological condition F29 ; Personality disorder F60.9 and Factitious disorder imposed on self, recurrent episode F68.10 [place] [id number] [place] [address] 69167- 6015 Nov, Back pain M54.9 [place] [id number] [place] [address] 77376- 2947 Nov, Unspecified psychosis not due to a substance or known physiological condition F29 ; Personality disorder F60.9 and Factitious disorder imposed on self, recurrent episode F68.10 [facility] [address], [place] [address] October, [facility] [id number] [place] [address] 90505- 1836 October, [facility] [address] [id number] [address] 1440 October, Unspecified psychosis not due to a substance or known physiological condition F29 ; Personality disorder F60.9 and Factitious disorder imposed on self, recurrent episode F68.10 [facility] [address] [id number], [place] [address] October, Back pain M54.9 [facility] [address] [place] [address] 31994- 6818 October, Seizure disorder G40.909 ; Back pain M54.9 and Allergic state, subsequent encounter T78.40XD [facility] [address], [place] [address] October, [facility] [id number] [place] [address] 91054- 5575 Sep, Back pain M54.9 [facility] [address], [place] [address] 9636 Sep, Unspecified psychosis not due to a substance or known physiological condition F29 ; Personality disorder F60.9 and Factitious disorder imposed on self, recurrent episode F68.10 [facility] [address], [place] [address] 27[address] Sep, [facility] [id number] [place] [address] 34097- 9842 Sep, [facility] [address], [place] [address] Sep, [facility] [id number] [place] [address] 27841- 2381 Sep, [facility] [address] [id number] [address] Aug, [facility] [address] 3[address] Aug, Back pain M54.9 [facility] [id number] [address] Aug, Factitious disorder imposed on self, recurrent episode F68.10 ; Personality disorder F60.9 ; Insomnia, unspecified type G47.[address] [facility] [address], [place] [address]- 9764 Aug, Back pain M54.9 ; Iron deficiency anemia, unspecified iron deficiency anemia type D50.9 ; Chronic kidney disease, unspecified stage N18.9 and Breast cancer screening Z12.31 [facility] [id number] [id number] Jul, Back pain M54.9 [facility] [id number] [place] [address] [id number] Jul, [facility] [id number] [place] [address] [id number] Jul, [facility] [id number] [id number] Jun, Back pain M54.9 [facility] [id number] [id number] Jun, [facility] [address] [place] [id number] [place] [address] [id number] Jun, Back pain M54.9 [facility] [address] [id number], [place] [address]- 2546 Jun, Back pain M54.9 ; Seizure disorder G40.909 and Age-related osteoporosis without current pathological fracture M81.0 [facility] [id number] [id number] May, [facility] [address], [place] [address]- 9321 May, Back pain M54.9 [facility] [id number] [place] [address] 97481- 8234 Apr, Back pain M54.9 ; Encounter for immunization Z23 ; Gastroesophageal reflux disease without esophagitis K21.9 ; Age-related osteoporosis without current pathological fracture M81.0 and Chronic pruritus L29.9 [facility] [address] [place] [address] 67010- 9560 Apr, History of CVA with residual deficit I69.30 [facility] [id number] [place] [address] 94704- 5265 Apr, Factitious disorder imposed on self, recurrent episode F68.10 and Personality disorder F60.9 [facility] [id number] [place] [address] [phone] Apr, Back pain M54.9 [facility] [address] [place] [address] 76162- 3745 Mar, Factitious disorder imposed on self, recurrent episode F68.10 [facility] [address] [place] [address] 87345- 0703 Mar, [facility] [id number] [id number] Mar, [facility] [id number] [place] [address] [id number] Mar, Back pain M54.9 [facility] [address], [place] [address]- 6341 05 Mar, 2017 Back pain M54.9 ; Seizure disorder G40.909 and Age-related osteoporosis without current pathological fracture M81.0 [facility] [address], [place] [address]- 1827 Feb, History of CVA with residual deficit I69.30 [facility] [address], [place] [address]- 6130 19 Feb, 2017 Factitious disorder imposed on self, recurrent episode F68.10 and Personality disorder F60.9 [facility] [address], [place] [address]- 8985 15 Feb, [address] [facility] [address], [place] [address]- 3102 06 Feb, 2017 [facility] [address] [place] [address] 63439- 8684 Jan, [facility] [address] [place] [address] [id number] Jan, Age- related osteoporosis without current pathological fracture M81.0 and Allergic state, subsequent encounter T78.40XD [facility] [address], [place] [address]- 1804 Jan, Factitious disorder imposed on self, recurrent episode F68.10 and Personality disorder F60.9 [facility] [address], [place] [address]- 3907 Dec, Back pain M54.9 [facility] [address] [place] [address] 17328- 3962 Dec, Personality disorder F60.9 and Factitious disorder imposed on self, recurrent episode F68.10 [facility] [id number] [id number] Dec, Back pain M54.9 [facility] [id number], [place] [id number] Dec, [facility] [id number] [place] [address] [id number] Dec, [facility] [address], [place] [address]- 0184 Dec, [facility] [address] [place] [address] 73991- 3348 Nov, [facility] [address], [place] [address]- 6204 Nov, Back pain M54.9 ; Anemia, unspecified type D64.9 and History of colon polyps Z86.010 [facility] [address], [place] [address]- 0992 Nov, Back pain M54.9 [facility] [id number] [place] [address] [phone] October, Back pain M54.9 [facility] [address] [place] [id number] October, Back pain M54.9 and Gastroesophageal reflux disease without esophagitis K21.9 [facility] [id number] [place] [address] [id number] Sep, [facility] [id number] [place] [address] 40041- 0417 Sep, [facility] [id number] [place] [address] 82435- 4703 Sep, [facility] [id number] [place] [address] 78559- 8186 Sep, [facility] [id number] [place] [address] 47195- 8676 Sep, [facility] [address] [place] [address] 08717- 7949 Sep, Seizure disorder G40.909 [facility] [id number] [place] [address] 20070- 8129 Sep, Back pain M54.9 [facility] [id number] [place] [address] 95815- 9404 Sep, [facility] [id number] [place] [address] 60656- 1717 Aug, Back pain M54.9 [facility] [id number] [place] [address] [id number]- 6826 Aug, Seizure disorder G40.909 [facility] [id number] [id number] 17 Aug, 2016 [facility] [id number] [place] [address] [id number] 16 Aug, 2016 Back pain M54.9 [facility] [id number] [id number] 14 Aug, 2016 Back pain M54.9 [facility] [id number] [id number] 06 Aug, 2016 Back pain M54.9 [facility] and [address] [id number] Jul, Weakness R53.1 [facility] [address] [place] [address] 53405- 9169 Jul, Seizure disorder G40.909 [facility] [address] [place] [address] 15359- 0305 Jul, [facility] [address] [place] [address] 39335- 0348 Jul, Breast cancer screening Z12.39 [facility] [address] [place] [address] 31156- 9639 Jul, [facility] [address], [place] [address]- 9038 Jul, [facility] [address], [place] [address]- 3315 Jul, [facility] [address] [place] [address] 30678- 6932 13 Jul, 2016 Seizure disorder G40.909 ; Fatigue, unspecified type R53.83 ; Perennial allergic rhinitis, unspecified allergic rhinitis trigger J30.89 and Chronic kidney disease, unspecified stage N18.9 [facility] [address] [place] [address] 60677- 7882 Jul, [facility] [address], [place] [address]- 2288 Jul, Seizure disorder G40.909 [facility] [address] [place] [address] 287228- 1710 Jun, [facility] [address] [place] [address] 45707- 3890 Jun, [address] [id number] Jun, Perennial allergic rhinitis, unspecified allergic rhinitis trigger J30.89 [facility] [id number] [place] [address] [id number] Jun, [facility] [address] [place] [address] 10942- 6672 Jun, Seizure disorder G40.909 [facility] [id number] [place] [address] [id number] Jun, [facility] [id number] [place] [address] [phone] May, [facility] [id number] [place] [address] 33091- 8259 May, [facility] [address] [place] [address] 81880- 0914 May, [facility] [id number] [place] [address] 55004- 0747 May, [facility] [address] [place] [address] 48228- 2810 May, History of CVA with residual deficit I69.30 [facility] [id number] [place] [address] 56024- 1782 May, [facility] [id number] [place] [address] 13032- 1134 May, [facility] [id number] [place] [address] 65090- 4840 May, [facility] [address] [facility] [id number], [place] [address]- 9174 May, Seizure disorder G40.909 [facility] [address] [facility] [id number], [place] [address]- 1332 May, [facility] [address] [place] [address] May, Back pain M54.9 and Seizure disorder G40.909 [facility] [address] [facility] [id number] [place] [address] 23219- 2021 Apr, [facility] [address] [facility] [id number] [place] [address] 65499- 0457 Apr, Back pain M54.9 [facility] [address] [place] [address] 11605- 9883 Mar, [facility] [address] [place] [address] Mar, Insomnia, unspecified type G47.00 [facility] [address] [place] [address] 35097- 6367 Mar, [facility] [address] [place] [address] 09626- 8608 Feb, [facility] [address] [place] [address] 40652- 2485 Feb, [facility] [address] [place] [address] 49997- 2333 Feb, [facility] [address] [id number], [place] [address]- 1468 Jan, [facility] [address] [place] [address] 84200- 9121 Jan, [facility] [address] [place] [address] Jan, Seizure disorder G40.909 and Back pain M54.9 [facility] [address], [place] [address]- 2502 Dec, [facility] [address], [place] [address]- 1413 Dec, [facility] [address], [place] [address]- 5606 Dec, [facility] [address] [place] [address] 16072- 3373 Nov, [facility] [address] [place] [address] 12568- 6396 Nov, [facility] [id number] [place] [address] 23021- 4383 Nov, Back pain M54.9 [facility] [id number] [place] [address] 98133- 8055 October, [facility] [id number] [place] [address] 46334- 3681 October, Back pain M54.9 [facility] [id number] [place] [address] 26256- 2356 October, Seizure disorder G40.[address] [facility] [address], [place] [address]- 4961 Sep, History of CVA with residual deficit I69.30 [facility] [address], [place] [address]- 8385 Sep, [facility] [address], [place] [address] 1864 Sep, [facility] [id number] [place] [address] 36575- 0736 Sep, Back pain M54.9 [facility] [address], [place] [address]- 7835 Sep, Seizure disorder G40.909 [facility] [id number] [place] [address] 54626- 5299 25 Aug, [address] [facility] [id number] [place] [address] 04874- 6161 18 Aug, [address] [facility] [id number] [place] [address] 38059- 8295 16 Aug, [address] [facility] [id number] [place] [address] 98207- 6385 14 Aug, 2015 Heart failure, unspecified I50.9 [facility] [id number] [place] [address] [phone] 14 Aug, 2015 Medication monitoring encounter Z51.81 [facility] [id number] [place] [address] 15211- [phone] 15 Jul, 2015 [facility] [id number] [place] [address] [phone]- 7651 09 Jul, [address] [facility] [id number] [place] [address] [phone] 05 Jul, [address] [facility] [id number] [place] [address] [phone] Jun, [place] [id number] [place] [phone] Jun, [facility] [id number] [place] [address] [phone] Jun, Mental status change R41.82 ; History of CVA with residual deficit I69.30 ; Back pain M54.9 and Seiz[address] disorder G40.909 [facility] [id number] [place] [address] [phone] Jun, [facility] [id number] [place] [address] [phone] May, [facility] [address] [id number] [place] [address] Apr, [facility] [address] [id number] [place] [address] Apr, Medication monitoring encounter Z51.81 [facility] [address] [facility] [id number] [place] [address] Mar, [address]10 [facility] [address] [id number] [address] Mar, [facility] [address] [id number] [place] [address] Feb, [facility] [id number] [address] Feb, UTI (urinary tract infection) [address] [facility] [id number] [address] Jan, [facility] [address] [facility] [id number], [place] [address]6 Jan, [facility] [address] [id number] [address] Jan, [facility] [address] [id number] [address] Dec, [facility] [address] [id number] [place] [address] Dec, [facility] [address] [facility] [id number] [address] Dec, [facility] [address] [id number], [place] [address] Dec, [facility] [address] [facility] [id number], [place] [address] Nov, UNKNOWN Nov, [facility] [address] [id number], [place] [address] October, [facility] [place] [facility] [address] [id number] [place] [address] 1470 Sep, [facility] [place] [facility] [address] [id number] [place] [address]- 0086 Sep, [facility] [place] [facility] [address] [id number] [place] [address]- [address]201 Aug, [facility] [place] [facility] [address] [id number] [place] [address]- 2888 Aug, [facility] [place] [facility] [address] [id number] [place] [address]- 1809 Jul, [facility] [place] [facility] [address] [id number] [place] [address]- 2690 Jul, [facility] [place] [facility] [address] [id number] [place] [address]- 4295 Jul, [facility] [place] [facility] [address] [id number] [place] [address]- 5251 Jul, [facility] [place] [facility] [address] [id number] [place] [address]- 6952 Jul, [facility] [place] [facility] [address] [facility] [id number] [place] [address]- 6904 Jun, [facility] [place] [facility] [address] [id number], [place] [address] 9149 Jun, [facility] [place] [facility] [address] [id number], [place] [address]- 4113 Jun, [facility] [place] [facility] [address] [id number] [place] [address]- 1910 Jun, [facility] [place] [facility] [address] [id number] [place] [address]- 0073 Jun, [facility] [place] [facility] [address] [id number] [place] [address]- 4461 Jun, [facility] [place] [facility] [address] [id number] [place] [address]- 9416 14 Jun, 2014 [facility] [address] [id number] [place] [address]- 9455 Jun, [facility] [place] [facility] [address] [id number] [place] [address]- 7044 Jun, [facility] [place] [facility] [address] [id number] [place] [address]- 9085 Jun, [facility] [place] [facility] [address] [id number] [place] [address]- 2040 Jun, [facility] [place] [facility] [address] [id number] [place] [address]- 3389 Jun, [facility] [place] [facility] [address] [id number] [place] [address]- 4727 Jun, [facility] [place] [facility] [address] [id number] [place] [address]- 2123 Jun, [facility] [place] [facility] [address] [id number] [place] [address]- 6357 Jun, [facility] [place] [facility] [address] [id number] [place] [address]- 7572 Jun, [facility] [place] [facility] [address] [id number] [place] [address]- 2559 Jun, [facility] [place] [facility] [address] [id number] [place] [address]- 8454 Jun, [facility] [place] [facility] [address] [id number] [place] [address]- 5634 May, [facility] [place] [facility] [address] [id number] [place] [address]- 6056 May, [facility] [place] [facility] [address] [id number] [place] [address]- 1270 May, [facility] [place] [facility] [address] [id number] [place] [address]- 7860 May, [facility] [place] [facility] [address] [id number] [place] [address]- 0718 May, [facility] [place] [facility] [address] [id number] [place] [address]- 0665 May, [facility] [place] [facility] [address] [id number] [place] [address]- 1189 May, [facility] [place] [facility] [address] [id number] [place] [address]- 1884 May, [facility] [place] [facility] [address] [id number] [place] [address]- 6225 May, [facility] [address] [facility] [id number] May, [facility] [address] [id number] [place] [address]- 2950 May, [facility] [place] [facility] [address] [id number] [place] [address]- 9588 May, [facility] [address] [id number] [place] [address]- 7512 May, [facility] [place] [facility] [address] [id number] [place] [address]- 5518 Apr, [facility] [address] [id number] [place] [address]- 6958 Apr, [facility] [place] [facility] [address] [id number] [place] [address]- 8331 Apr, [facility] [place] [facility] [address] [id number] [place] [address]- 9311 Apr, [facility] [place] [facility] [address] [id number] [place] [address]- 5532 Apr, [facility] [place] [facility] [address] [id number] [place] [address]- 4826 Apr, [facility] [place] [facility] [address] [id number] [id number] [address] Mar, [facility] [place] [facility] [address] [id number] [place] [address]- 1600 Mar, [facility] [place] [facility] [address] [id number] [place] [address]- 4851 Mar, [facility] [place] [facility] [address] [id number] [place] [address]- 9274 Mar, [facility] [place] [facility] [address] [id number] [place] [address]- 3856 Mar, [facility] [place] [facility] [address] [id number] [place] [address]- 2557 Mar, [facility] [place] [facility] [address] [id number] [place] [address]- 8473 Feb, [facility] [place] [facility] [address] [id number] [place] [address]- 9494 Feb, [facility] [place] [facility] [address] [id number] [place] [address]- 9349 Feb, [facility] [place] [facility] [address] [id number] [place] [address]- 2583 Feb, [facility] [place] [facility] [address] [id number] [place] [address]- 2363 Feb, [facility] [place] [facility] [address] [id number], [place] [address]- 8260 Feb, [facility] [place] [facility] [address] [id number], [place] [address]- 8468 Feb, [facility] [place] [facility] [address] [id number] [place] [address]- 9437 Feb, [facility] [place] [facility] [address] [id number], [place] [address]- 0692 Feb, [facility] [place] [facility] [address] [id number], [place] [address]- 6123 Feb, [facility] [address] [place] [id number] Feb, [facility] [place] [facility] [address] [id number] [place] [address]- 5[address] Feb, [facility] [place] [facility] [address] [id number] [place] [address]- 2579 Jan, [facility] [place] [facility] [address] [id number] [place] [address]- 7750 Jan, [facility] [place] [facility] [address] [id number] [place]159 Dec, [facility] [place] [facility] [address] [id number] [place] [address]- 0486 Dec, [facility] [place] [facility] [address] [id number] [place] [address]- 5226 Dec, [facility] [place] [facility] [address] [id number] [place] [address]- 8483 Dec, [facility] [place] [facility] [address] [id number] [place] [address]- 2069 Dec, [facility] [place] [facility] [address] [id number] [place] [address]- 9994 Dec, [facility] [place] [facility] [address] [id number] [place] [address]- 9391 Dec, [facility] [place] [facility] [address] [id number] [place] [address]- 2648 Dec, [facility] [place] [facility] [address] [id number] [place] [address]- 9861 Dec, [facility] [place] [facility] [address] [id number] [place] [address]- 5784 Dec, [facility] [place] [facility] [address] [id number] [place] [address]- 2866 Nov, [facility] [place] [facility] [address] [id number] [place] [address]- 9728 Nov, [facility] [place] [facility] [address] [id number] [place] [address]- 2881 Nov, [facility] [place] [facility] [address] [id number] [place] [address]- 3851 Nov, [facility] [place] [facility] [address] [id number] [place] [address]- 5912 Nov, [facility] [place] [facility] [address] [id number] [place] [address]- 4307 Nov, [facility] [place] [facility] [address] [id number] [place] [address]- 0154 Nov, [facility] [place] [facility] [address] [id number] [place] [address]- 4142 Nov, [facility] [place] [facility] [address] [id number] [place] [address]- 0875 Nov, [facility] [place] [facility] [address] [id number] [place] [address]- 3066 Nov, [facility] [place] [facility] [address] [id number] [place] [address]- 5848 Nov, [facility] [place] [facility] [address] [id number] [place] [address]- 2518 Nov, [facility] [place] [facility] [address] [id number] [place] [address]- 4428 Nov, [facility] [place] [facility] [address] [id number] [place] [address]- 8057 Nov, [facility] [place] [facility] [address] [id number] [place] [address]- 2157 October, [facility] [place] [facility] [address] [id number] [place] [address]- 9647 October, [facility] [place] [facility] [address] [id number] [place] [address]- 9525 October, [facility] [place] [facility] [address] [id number] [place] [address]- 8446 October, [facility] [address] [id number] [place] [address]- 7886 October, [facility] [place] [facility] [address] [id number] [place] [address]- 0287 October, [facility] [place] [facility] [address] [id number] [place] [address]- 0957 October, [facility] [place] [facility] [address] [id number] [place] [address]- 4230 October, [facility] [place] [facility] [address] [id number] [place] [address]- 4199 October, [facility] [place] [facility] [address] [id number] [place] [address]- 1833 October, [facility] [place] [facility] [address] [id number] [place] [address]- 0468 Sep, [facility] [place] [facility] [address] [id number] [place] [address]- 5659 Sep, [facility] [place] [facility] [address] [id number] [place] [address]- 7777 Sep, [facility] [place] [facility] [address] [id number] [place] [address]- 8255 Sep, [facility] [place] [facility] [address] [id number] [place] [address]- 0554 Sep, [facility] [place] [facility] [address] [id number] [place] [address]- 4641 Sep, [facility] [place] [facility] [address] [id number] [place] [address]- 6832 Sep, [facility] [place] [facility] [address] [id number] [place] [address]- 3410 Sep, [facility] [place] [facility] [address] [id number] [place] [address]- 1661 Sep, [facility] [place] [facility] [address] [id number], [place] [address]- 1815 Sep, [facility] [place] [facility] [address] [id number] [place] [address]- 0174 Aug, [facility] [place] [facility] [address] [id number] [place] [address]- 5479 Aug, [facility] [place] [facility] [address] [facility] [id number] [place] [address]- 3014 Aug, [facility] [place] [facility] [address] [id number] [place] [address]- 3122 Aug, [facility] [place] [facility] [address] [id number] [place] [address]- 2308 Aug, [facility] [place] [facility] [address] [facility] [id number] [place] [address]- 3263 Aug, [facility] [place] [facility] [address] [facility] [id number] [place] [address]- 4849 Aug, [facility] [place] [facility] [address] [facility] [id number] [place] [address]- 3942 Aug, [facility] [place] [facility] [address] [facility] [id number] [place] [address]- 2175 Aug, [facility] [place] [facility] [address] [facility] [id number] [place] [address]- 1451 Jul, [facility] [place] [facility] [address] [facility] [id number] [place] [address]- 3745 Jul, [facility] [place] [facility] [address] [facility] [id number] [place] [address]- 5635 Jul, [facility] [place] [facility] [address] [id number] [place] [address]- 5251 Jul, [facility] [place] [facility] [address] [facility] [id number] [place] [address]- 6449 Jul, [facility] [place] [facility] [address] [facility] [id number] [place] [address]- 7480 Jul, [facility] [place] [facility] [address] [id number] [place] [address]- 4085 Jul, [facility] [place] [facility] [address] [id number] [place] [address]- 5136 Jul, [facility] [place] [facility] [address] [id number] [place] [address]- 5346 Jul, [facility] [place] [facility] [address] [id number] [place] [address]- 3346 Jul, [facility] [place] [facility] [address] [id number] [place] [address]- 9576 Jul, [facility] [place] [facility] [address] [id number] [place] [address]- 9240 Jul, [facility] [place] [facility] [address] [id number] [place] [address]- 8750 Jul, [facility] [place] [facility] [address] [id number] [place] [address]- 8239 Jul, [facility] [place] [facility] [address] [id number] [place] [address]- 6107 Jul, [facility] [place] [facility] [address] [id number] [place] [address]- 7472 Jul, [facility] [place] [facility] [address] [id number] [place] [address]- 2504 Jun, [facility] [place] [facility] [address] [id number] [place] [address]- 2251 Jun, [facility] [place] [facility] [address] [id number] [place] [address]- 2290 Jun, [facility] [place] [facility] [address] [id number] [place] [address]- 0315 Jun, [facility] [place] [facility] [address] [id number] [place] [address]- 2090 Jun, [facility] [place] [facility] [address] [id number] [place] [address]- 4098 Jun, [facility] [address] [id number] [place] [address]- 0428 May, [facility] [address] [id number] [place] [address]- 3979 May, [facility] [address] [id number] [place] [address]- 4794 May, [facility] [address] [id number] [place] [address]- 1684 May, [facility] [address] [id number] [place] [address]- 4088 Apr, [facility] [address] [id number] [place] [address]- 2390 Apr, [facility] [address] [id number] [place] [address]- 1650 Apr, [facility] [address] [id number] [place] [address]- 7508 Apr, [facility] [address] [id number] [place] [address]- 7975 Apr, [facility] [address] [facility] [id number] [place] [address]- 5878 Apr, [facility] [address] [id number] [place] [address]- 9499 Apr, [facility] [address] [id number] [place] [address]- 5719 Apr, [facility] [place] [facility] [address] [id number] [place] [address]- 3144 Apr, [facility] [place] [facility] [address] [id number] [place] [address]- 0099 Apr, [facility] [address] [id number] [place] [address]- 9980 Apr, [facility] [place] [facility] [address] [id number] [place] [address]- 2618 Apr, [facility] [place] [facility] [address] [id number] [place] [address]- 9915 28 Mar, 2013 [facility] [place] [facility] [address] [id number] [place] [address]- 4036 28 Mar, 2013 [facility] [place] [facility] [address] [id number] [place] [address]- 2845 16 Mar, 2013 [facility] [place] [facility] [address] [id number] [place] [address]- 8723 16 Mar, 2013 [facility] [place] [facility] [address] [id number] [place] [address]- 1158 15 Mar, 2013 [facility] [place] [facility] [address] [id number] [place] [address]- 2628 15 Mar, 2013 [facility] [place] [facility] [address] [id number], [place] [address]- 9821 27 Feb, 2013 [facility] [place] [facility] [address] [id number] [place] [address]- 5251 25 Feb, 2013 [facility] [place] [facility] [address] [id number], [place] [address]- 6798 25 Feb, 2013 [facility] [place] [facility] [address] [id number], [place] [address]- 0518 23 Feb, 2012 [facility] [place] [facility] [address] [id number], [place] [address]- 7222 17 Feb, 2012 [facility] [place] [facility] [address] [id number] [place] [address]- 4941 10 Feb, 2013 [facility] [place] [facility] [address] [id number], [place] [address]- 7775 04 Feb, 2013 [facility] [place] [facility] [address] [id number], [place] [address]- 7798 30 Jan, 2013 [facility] [place] [facility] [address] [id number], [place] [address]- 1880 Jan, [facility] [place] [facility] [address] [id number] [place] [address]- 4263 Jan, [facility] [place] [facility] [address] [id number] [place] [address]- 6191 Jan, [facility] [place] [facility] [address] [id number] [place] [address]- 6570 Jan, [facility] [place] [facility] [address] [id number] [place] [address]- 1874 Jan, [facility] [place] [facility] [address] [id number] [place] [address]- 6793 Jan, [facility] [place] [facility] [address] [id number] [place] [address] Dec, [facility] [place] [facility] [address] [id number] [place] [address] Dec, [facility] [place] [facility] [address] [id number] [place] [address] Dec, [facility] [place] [facility] [address] [id number] [place] [address] Dec, [facility] [place] [facility] [address] [id number] [place] [address] Dec, [facility] [place] [facility] [address] [id number] [place] [address] Dec, [facility] [place] [facility] [address] [id number] [place] [address] Nov, [facility] [place] [facility] [address] [id number] [place] [address] Nov, [facility] [place] [facility] [address] [id number] [place] [address] Nov, [facility] [place] [facility] [address] [id number] [place] [address] Nov, [facility] [place] [facility] [address] [id number] [place] [address] October, [facility] [address] [id number] [place] [address] October, [facility] [address] [id number] [place] [address] October, [facility] [address] [id number] [place] [address] October, [facility] [address] [id number] [place] [address] Sep, [facility] [address] [id number] [place] [address] Sep, [facility] [address] [id number] [place] [address] Sep, [facility] [address] [id number] [place] [address] Sep, [facility] [address] [id number] [place] [address] Sep, [facility] [address] [id number] [place] [address] Sep, [facility] [address] [id number] [place] [address] Sep, [facility] [address] [id number] [place] [address] Sep, [facility] [address] [id number] [place] [address] Aug, [facility] [place] [facility] [address] [id number] [place] [address] Aug, [facility] [place] [facility] [address] [id number] [place] [address] 05 Aug, 2012 [facility] [place] [facility] [address] [id number] [place] [address] 18 Jul, 2012 [facility] [place] [facility] [address] [id number] [place] [address] 08 Jul, 2012 [facility] [place] [facility] [address] [id number] [place] [address] 07 Jul, 2012 [facility] [place] [facility] [address] [id number] [place] [address] 06 Jul, 2012 [facility] [place] [facility] [address] [id number] [place] [address] 05 Jul, 2012 [facility] [place] [facility] [address] [id number] [place] [address] Jun, [facility] [place] [facility] [address] [id number] [place] [address] Jun, [facility] [place] [facility] [address] [id number] [place] [address] Jun, [facility] [place] [facility] [address] [id number] [place] [address] May, [facility] [place] [facility] [address] [id number] [place] [address] May, [facility] [place] [facility] [address] [id number] [place] [address] May, [facility] [place] [facility] [address] [id number] [place] [address] May, [facility] [place] [facility] [address] [id number] [place] [address] May, [facility] [place] [facility] [address] [id number] [place] [address] May, [facility] [place] [facility] [address] [id number] [place] [address]47 May, [facility] [place] [facility] [address] [id number] [place] [address] Apr, [facility] [place] [facility] [address] [id number] [place] [address] Apr, [facility] [place] [facility] [address] [id number] [place] [address] Apr, [facility] [place] [facility] [address] [id number] [place] [address] 73[address] Apr, [facility] [place] [facility] [address] [id number] [place] [address] 139[address] Apr, [facility] [place] [facility] [address] [id number] [place] [address] Apr, [facility] [place] [facility] [address] [id number] [place] [address] Apr, [facility] [place] [facility] [address] [id number] [place] [address] Apr, [facility] [place] [facility] [address] [id number] [place] [address] Apr, [facility] [place] [facility] [address] [id number] [place] [address] Apr, [facility] [place] [facility] [address] [id number] [place] [address]- [address] Apr, [facility] [place] [facility] [address] [id number] [place] [address] Mar, [facility] [place] [facility] [address] [id number] [place] [address] Mar, [facility] [place] [facility] [address] [id number], [place] [address] Mar, [facility] [place] [facility] [address] [id number] [place] [address] 1413 Mar, [facility] [place] [facility] [address] [id number] [place] [address] Mar, [facility] [place] [facility] [address] [id number] [place] [address] 8898 Mar, [facility] [place] [facility] [address] [id number] [place] [address]- 9735 19 Mar, 2012 [facility] [place] [facility] [address] [id number] [place] [address] 19 Mar, 2012 [facility] [place] [facility] [address] [id number] [place] [address]- [address] 16 Mar, 2012 [facility] [place] [facility] [address] [id number] [place] [address]- [address]270 16 Mar, 2012 [facility] [place] [facility] [address] [id number] [place] [address] 04 Mar, 2012 [facility] [place] [facility] [address] [id number] [place] [address] 2011 [facility] [place] [facility] [address] [id number] [place] [address] 27 Sep, 2011 [facility] [place] [facility] [address] [id number], [place] [address] 27 Sep, 2011 [facility] [place] [facility] [address] [id number] [place] [address] 26 Sep, 2011 [facility] [place] [facility] [address] [facility] [id number], [place] [address] 24 Feb, 2012 [facility] [place] [facility] [address] [id number][place] [address] 19 Sep, 2011 [facility] [place] [facility] [address] [id number], [place] [address] 18 Sep, 2011 [facility] [place] [facility] [address] [id number], [place] [address] 4[address] 18 Sep, 2011 [facility] [place] [facility] [address] [id number], [place] [address] 266[address] 18 Feb, 2011 [facility] [place] [facility] [address] [facility] [id number], [place] [address] 30 Jan, 2012 [facility] [place] [facility] [address] [id number], [place] [address] Jan, [facility] [place] [facility] [address] [id number] [place] [address] Jan, [facility] [place] [facility] [address] [id number] [place] [address] 3927 Jan, [facility] [place] [facility] [address] [id number] [place] [address] 29[address] Dec, [facility] [place] [facility] [address] [id number] [place] [address] 8868 Dec, [facility] [place] [facility] [address] [id number] [place] [address]- 2046 Dec, [facility] [place] [facility] [address] [id number] [place] [address]- 5686 Dec, [facility] [place] [facility] [address] [id number] [place] [address] 0678 Dec, [facility] [place] [facility] [address] [id number] [place] [address] Dec, [facility] [place] [facility] [address] [id number] [place] [address]- 1328 Dec, [facility] [place] [facility] [address] [id number] [place] [address]- 7178 Dec, [facility] [place] [facility] [address] [id number] [place] [address]- 0876 Dec, [facility] [place] [facility] [address] [id number] [place] [address] 3237 Dec, [facility] [place] [facility] [address] [id number] [place] [address] 3577 Dec, [facility] [place] [facility] [address] [id number] [place] [address] 8238 Dec, [facility] [place] [facility] [address] [id number] [place] [address] 99[address] Dec, [facility] [place] [facility] [address] [id number] [place] [address] 75[address] 05 Dec, 2011 [facility] [place] [facility] [address] [id number] [place] [address]- 7781 26 Nov, 2011 [facility] [place] [facility] [address] [id number] [place] [address] 7296 14 Nov, 2011 [facility] [place] [facility] [address] [id number] [place] [address] 2496 Nov, [facility] [place] [facility] [address] [id number] [place] [address]- 9245 Nov, [facility] [place] [facility] [address] [id number] [place] [address] 0078 Nov, [facility] [place] [facility] [address] [id number] [place] [address] 5063 Nov, [facility] [place] [facility] [address] [id number] [place] [address] 1711 October, [facility] [place] [facility] [address] [id number] [place] [address] 2698 October, [facility] [place] [facility] [address] [id number] [place] [address] 3957 October, [facility] [place] [facility] [address] [id number] [place] [address] 3295 October, [facility] [place] [facility] [address] [id number] [place] [address]- 6353 19 Sep, 2011 [facility] [place] [facility] [address] [id number] [place] [address] 0085 17 Sep, 2011 [facility] [place] [facility] [address] [id number] [place] [address]- 8436 13 Sep, 2011 [facility] [place] [facility] [address] [id number] [place] [address]- 6916 09 Sep, 2011 [facility] [place] [facility] [address] [id number] [place] [address] 64[address] Sep, [facility] [address] [facility] [id number] [place] [address] Aug, [facility] [address] [facility] [id number] [place] [address] 6859 26 Aug, 2011 [facility] [address] [facility] [id number] [place] [address] 4663 Aug, [facility] [address] [facility] [id number] [place] [address]- 6579 20 Aug, 2011 [facility] [address] [facility] [id number] [place] [address]- 2476 13 Aug, 2011 [facility] [address] [facility] [id number] [place] [address]- 4293 Aug, [facility] [address] [id number] [address] Aug, [facility] [address] [facility] [id number], [place] [address] 1857 16 Jul, 2011 [facility] [address] [id number], [place] [address] 16 Jul, 2011 [facility] [address], [place] [address] 15 Jul, 2011 [facility] [address], [place] [address] Jul, [facility] [address] [id number], [place] [address] 2863 24 Jun, 2011 [facility] [address] [place] [id number] Jun, [facility] [address] [id number], [place] [address] 1826 18 Jun, 2011 [facility] [address] [id number], [place] [address]105 Jun, [facility] [address], [place] [address] 4155 Jun, [facility] [address] [id number] [place] [address] 9434 Jun, [facility] [place] [facility] [address] [facility] [id number] [place] [address]- 8107 Jun, [facility] [address] [facility] [id number] [place] [address]- 6703 Jun, [facility] [place] [facility] [address] [id number] [place] [address]- 6004 May, [facility] [address] [facility] [id number] [place] [address], [place] [address]- 8924 May, [facility] [place] [facility] [address] [facility] [id number] [place] [address]- 1271 May, [facility] [id number] [address] 0665 May, [facility] [place] [facility] [address] [facility] [id number] [place] [address]- 2174 May, [facility] [place] [facility] [address] [id number] [place] [address]- 5532 May, [facility] [place] [facility] [address] [id number] [place] [address]- 7860 May, [facility] [place] [facility] [address] [facility] [id number], [place] [address]- 3468 Apr, [facility] [place] [facility] [address] [facility] [id number], [place] [address]- 2292 Apr, [facility] [place] [facility] [address] [facility] [id number], [place] [address]- 7851 Apr, [facility] [place] [facility] [address] [facility] [id number], [place] [address]- 3302 Mar, [facility] [place] [facility] [address] [id number], [place] [address] 7733 Mar, [facility] [place] [facility] [address] [id number] [place] [address]- 0463 14 Mar, 2011 [facility] [place] [facility] [address] [id number] [place] [address]- 7256 11 Mar, 2011 [facility] [place] [facility] [address] [id number] [place] [address] 2546 10 Mar, 2011 [facility] [place] [facility] [address] [id number] [place] [address] 2546 10 Mar, 2011 [facility] [place] [facility] [address] [id number] [place] [address] 2548 10 Mar, 2011 [facility] [place] [facility] [address] [id number] [place] [address]- 8883 11 Jan, 2011 [facility] [place] [facility] [address] [id number] [place] [address]- 5213 27 May, 2010 [facility] [place] [facility] [address] [id number] [place] [address]- 5921 21 May, 2010 [facility] [place] [facility] [address] [id number] [place] [address] 2549 13 May, 2010 [facility] [place] [facility] [address] [id number] [place] [address]- 2542 13 May, 2010 [facility] [place] [facility] [address] [id number] [place] [address]- 6594 10 May, 2010 [facility] [place] [facility] [address] [id number] [place] [address]- 2540 06 May, 2010 [facility] [place] [facility] [address] [id number] [place] [address] 2541 29 Apr, 2010 [facility] [place] [facility] [address] [id number] [place] [address] 2546 26 Apr, 2010 [facility] [place] [facility] [address] [id number] [place] [address]- 2546 19 Apr, 2010 [facility] [place] [facility] [address] [id number] [place] [address] Apr, [facility] [address]00565[address] [address] 4047 Apr, [facility] [address]00565[address] [address]392 Apr, [facility] [address]00565[address] [address]797 Apr, [facility] [id number] [place] [address]- 8926 Apr, [facility] [id number] [place] [address]- [address]121 Apr, [facility] [id number] [place] [address]- 5395 Apr, [facility] [address]00565[address] [address] 8810 Mar, [facility] [id number] [place] [address]- 0870 Mar, [facility] [address]00565[address] [address] 1109 Mar, [facility] [address]00565[address] [address] 9286 Mar, [facility] [address]00565[address] [address] 238[address] Mar, [facility] [address], [place] [address] Dec, [facility] [address] [id number], [place] [address]- 6257 Nov, IMMUNIZATIONS No Known Immunizations SOCIAL HISTORY Never Assessed REASON FOR VISIT Tranzene PLAN OF CARE VITAL SIGNS MEDICATIONS Medication Instructions Dosage Frequency Start Date End Date Duration Status Clorazepate Dipotassium 3.75 MG Orally Twice a day 1 tablets 12h 28 Active RESULTS No Results PROCEDURES No Known [...] and skin graft, cholecysectomy Hospitalization History [facility] 12/2016 [facility]ization History [facility] 08/2017
--- OUTSIDE RECORDS SUMMARY | 2018-02-04 13:08 | XMS REPORT ---
Author Author NAHOMY BETH Organization [facility] Address [address] [place] [address] Care Team Providers Care Building Carpenter Helper Name Role Phone NAHOMY BETH Unavailable PROBLEMS Type Condition ICD9-CM Code EOX58-VA Code Onset Dates Condition Status SNOMED Code Problem Anemia, unspecified type D64.9 Active 750532978 Problem Personality disorder F60.9 Active 12246504 Problem Factitious disorder imposed on self, recurrent episode F68.10 Active 97538014 Problem Ventral hernia without obstruction or gangrene K43.9 Active 496500060 Problem Allergic state, subsequent encounter T78.40XD Active 374079789 Problem Anxiety F41.9 Active 51001211 Problem Age-related osteoporosis without current pathological fracture M81.0 Active 92210509 Problem Unspecified psychosis not due to a substance or known physiological condition F29 Active 78623810 Problem Iron deficiency anemia, unspecified iron deficiency anemia type D50.9 Active 14096556 Problem History of CVA with residual deficit I69.30 Active 775905019 Problem Seizure disorder G40.909 Active 412596456 Problem Perennial allergic rhinitis, unspecified allergic rhinitis trigger J30.89 Active 757791616 Problem Chronic kidney disease, unspecified stage N18.9 Active 667568408 Problem Back pain M54.9 Active 437195353 Problem Gastroesophageal reflux disease without esophagitis K21.9 Active 141671007 Problem Insomnia, unspecified type G47.00 Active 177018361 Problem History of colon polyps Z86.010 Active 449377758 ALLERGIES No Information ENCOUNTERS Encounter Location Date Diagnosis [facility] [id number] [address] Jan, [facility] [id number] [address] Jan, [facility] [id number] [place] [address] 84405- 2622 Dec, Back pain M54.9 ; Seizure disorder G40.909 ; Ventral hernia without obstruction or gangrene K43.9 and History of CVA with residual deficit I69.30 [facility] [id number] [place] [address] 50725- 2849 Dec, Unspecified psychosis not due to a substance or known physiological condition F29 ; Personality disorder F60.9 and Factitious disorder imposed on self, recurrent episode F68.10 [place] [id number] [place] [address] 51303- 4786 Dec, [facility] [id number] [place] [address] 43884- 4888 Dec, Back pain M54.9 [facility] [id number] [place] [address] 39676- 0216 Dec, Factitious disorder imposed on self, recurrent episode F68.10 ; Personality disorder F60.9 ; Insomnia, unspecified type G47.00 and Anxiety F41.9 [place] [id number] [place] [address] 22214- 5011 Nov, Unspecified psychosis not due to a substance or known physiological condition F29 ; Personality disorder F60.9 and Factitious disorder imposed on self, recurrent episode F68.10 [place] [id number] [place] [address] 94081- 1827 Nov, Back pain M54.9 [facility] [id number] [place] [address] 83508- 9759 Nov, Unspecified psychosis not due to a substance or known physiological condition F29 ; Personality disorder F60.9 and Factitious disorder imposed on self, recurrent episode F68.10 [facility] [id number] [place] [address] 85571- 6543 October, [facility] [id number] [place] [address] 04952- 1298 October, [facility] [address] [address] 3975 October, Unspecified psychosis not due to a substance or known physiological condition F29 ; Personality disorder F60.9 and Factitious disorder imposed on self, recurrent episode F68.10 [facility] [address] [address] 7804 October, Back pain M54.9 [facility] [id number] [place] [address] 94065- 8600 October, Seizure disorder G40.909 ; Back pain M54.9 and Allergic state, subsequent encounter T78.40XD [facility] [id number] [place] [address] 45027- 7158 October, [facility] [id number] [place] [address] 86176- 0302 Sep, Back pain M54.9 [facility] [id number] [place] [address] 56060- 2987 Sep, Unspecified psychosis not due to a substance or known physiological condition F29 ; Personality disorder F60.9 and Factitious disorder imposed on self, recurrent episode F68.10 [facility] [address] [address]- 2568 Sep, [facility] [address] [address]- 3607 Sep, [facility] [address] [address]- 3586 Sep, [facility] [id number] [place] [address] 87515- 1454 Sep, [facility] [address] [address]- 8556 Aug, [facility] [address] [address]- 3431 Aug, Back pain M54.9 [facility] [id number] [address] [address]76 15 Aug, 2017 Factitious disorder imposed on self, recurrent episode F68.10 ; Personality disorder F60.9 ; Insomnia, unspecified type G47.00 and Anxiety F41.9 [facility] [id number] [address] 3893 08 Aug, 2017 Back pain M54.9 ; Iron deficiency anemia, unspecified iron deficiency anemia type D50.9 ; Chronic kidney disease, unspecified stage N18.9 and Breast cancer screening Z12.31 [facility] [id number] [place] [address] [id number] Jul, Back pain M54.9 [facility] [id number] [id number] Jul, [facility] [id number] [place] [address] [id number] Jul, [facility] [id number] [place] [address] [id number] Jun, Back pain M54.9 [facility] [id number] [id number] Jun, [facility] [id number] [id number] Jun, Back pain M54.9 [facility] [id number] 3529 Jun, Back pain M54.9 ; Seizure disorder G40.909 and Age-related osteoporosis without current pathological fracture M81.0 [facility] [id number] [id number] May, [facility] [address] [address] 7830 May, Back pain M54.9 [facility] [id number], [place] [address]- 5255 Apr, Back pain M54.9 ; Encounter for immunization Z23 ; Gastroesophageal reflux disease without esophagitis K21.9 ; Age-related osteoporosis without current pathological fracture M81.0 and Chronic pruritus L29.9 [facility] [id number] [place] [address] 78933- 4881 Apr, History of CVA with residual deficit I69.30 [facility] [id number] [place] [address] 89416- 0792 Apr, Factitious disorder imposed on self, recurrent episode F68.10 and Personality disorder F60.9 [facility] [id number] [place] [address] [id number] Apr, Back pain M54.9 [facility] [id number] [place] [address] 65396- 5765 Mar, Factitious disorder imposed on self, recurrent episode F68.10 [facility] [id number] [place] [address] 12872- 0869 Mar, [facility] [id number] [place] [address] [id number] Mar, [facility] [id number] [place] [address] [id number] Mar, Back pain M54.9 [facility] [id number] [place] [address] 80549- 4848 Mar, Back pain M54.9 ; Seizure disorder G40.909 and Age-related osteoporosis without current pathological fracture M81.0 [facility] [id number] [place] [address] 05921- 0027 Feb, History of CVA with residual deficit I69.30 [facility] [id number] [place] [address] 28289- 8420 Feb, Factitious disorder imposed on self, recurrent episode F68.10 and Personality disorder F60.9 [facility] [id number] [place] [address] 50055- 7310 15 Feb, 2017 Back pain M54.9 [facility] [address] [address]- 9356 Feb, [facility] [address] [address]- 9405 Jan, [facility] [address] [place] [address] [id number] Jan, Age- related osteoporosis without current pathological fracture M81.0 and Allergic state, subsequent encounter T78.40XD [facility] [id number] [address]- 0997 Jan, Factitious disorder imposed on self, recurrent episode F68.10 and Personality disorder F60.9 [facility] [address] [address]- 3755 Dec, Back pain M54.9 [facility] [address] [address]- 7003 Dec, Personality disorder F60.9 and Factitious disorder imposed on self, recurrent episode F68.10 [facility] [id number] [id number] Dec, Back pain M54.9 [facility] [id number] [id number] Dec, [facility] [id number] [id number] Dec, [facility] [id number], [place] [address]- 6286 Dec, [facility] [address], [place] [address]- 3415 Nov, [facility] [address] [address]- 5563 Nov, Back pain M54.9 ; Anemia, unspecified type D64.9 and History of colon polyps Z86.010 [facility] [id number] [address] 8385 Nov, Back pain M54.9 [facility] [address] [id number] [id number] October, Back pain M54.9 [facility] [address] [id number] October, Back pain M54.9 and Gastroesophageal reflux disease without esophagitis K21.9 [facility] [id number] [id number] Sep, [facility] [address] [facility] [id number] [address]- 3337 Sep, [facility] [id number] [address]- 8700 Sep, [facility] [address], [place] [address]- 9080 Sep, [facility] [id number], [place] [address]- 5588 Sep, [facility] [id number] [address]- 7346 Sep, Seizure disorder G40.909 [facility] [id number] [address]- 1998 Sep, Back pain M54.9 [facility] [id number], [place] [address]- 4288 Sep, [facility] [address] [facility] [place] [id number] [address]- 0629 Aug, Back pain M54.9 [facility] [address] [facility] [id number] 4316 Aug, Seizure disorder G40.909 [facility] [address] [id number] [id number] Aug, [facility] [address] [id number] [id number] 16 Aug, 2016 Back pain M54.9 [facility] [id number] [id number] 14 Aug, 2016 Back pain M54.9 [facility] [id number] [place] [address] [id number] 06 Aug, 2016 Back pain M54.9 [facility] [address] [place] [id number] Jul, Weakness R53.1 [facility] [id number] [place] [address] 34479- 7771 Jul, Seizure disorder G40.909 [facility] [id number] [place] [address] 49954- 5593 Jul, [place] [id number] [place] [address] 65924- 1287 Jul, Breast cancer screening Z12.39 [facility] [id number] [place] [address] 20902- 6026 Jul, [facility] [id number] [place] [address] 83653- 3660 Jul, [facility] [id number] [place] [address] 14219- 1318 Jul, [facility] [id number] [place] [address] 91722- 8686 Jul, Seizure disorder G40.909 ; Fatigue, unspecified type R53.83 ; Perennial allergic rhinitis, unspecified allergic rhinitis trigger J30.89 and Chronic kidney disease, unspecified stage N18.9 [facility] [id number] [place] [address] 84342- 6015 Jul, [facility] [id number] [place] [address] 42999- 7706 Jul, Seizure disorder G40.909 [facility] [id number] [place] [address] 40265- 8598 Jun, [facility] [address], [place] [address]- 2584 Jun, [address] [id number] Jun, Perennial allergic rhinitis, unspecified allergic rhinitis trigger J30.89 [facility] [id number] [place] [address] [id number] Jun, [facility] [id number] [place] [address] 62282- 1558 Jun, Seizure disorder G40.909 [facility] [id number] [place] [address] [id number] Jun, [facility] [id number] [place] [address] [id number] May, [facility] [id number] [place] [address] 77877- 0740 May, [facility] [id number] [place] [address] 84027- 5042 May, [facility] [id number] [place] [address] 59632- 2614 May, [facility] [id number] [place] [address] 92867- 9304 May, History of CVA with residual deficit I69.30 [facility] [address] [address]- 0154 May, [facility] [id number] [place] [address] 63513- 7321 May, [facility] [id number] [place] [address] 53611- 4916 May, [facility] [id number] [place] [address] 80220- 6271 May, Seizure disorder G40.909 [facility] [id number] [place] [address] 84935- 8480 May, [facility] [address] [place] [address] May, Back pain M54.9 and Seizure disorder G40.909 [facility] [address] [id number], [place] [address]- 9717 Apr, [facility] [address] [facility] [id number] [place] [address] 16453- 7773 Apr, Back pain M54.9 [facility] [address] [facility] [place] [id number] [place] [address] 19396- 8619 Mar, [facility] [address] [place] [address] Mar, Insomnia, unspecified type G47.00 [facility] [id number], [place] [address]- 4786 Mar, [facility] [address] [facility] [place] [id number] [place] [address] 79962- 3492 Feb, [facility] [address] [facility] [place] [id number] [place] [address] 42164- 0824 Feb, [facility] [id number] [place] [address] 49185- 7486 Feb, [facility] [address] [facility] [place] [id number], [place] [address]- 5540 Jan, [facility] [address] [facility] [id number] [place] [address] 14261- 6678 Jan, [facility] [address] [place] [address] Jan, Seizure disorder G40.909 and Back pain M54.9 [facility] [address] [facility] [place] [id number] [address]- 3195 Dec, [facility] [address] [facility] [place] [id number] [address]- 0196 Dec, [facility] [id number] [place] [address] 38062- 7862 08 Dec, 2015 [facility] [id number] [place] [address] 24774- 9854 Nov, [facility] [id number] [place] [address] 07057- 6661 Nov, [facility] [id number] [place] [address] 40558- 8465 Nov, Back pain M54.9 [facility] [id number] [place] [address] 04998- 7606 October, [facility] [id number] [place] [address] 17551- 8038 October, Back pain M54.9 [facility] [id number] [place] [address] 54737- 6086 October, Seizure disorder G40.909 and B12 deficiency E53.8 [facility] [id number] [place] [address] 39492- 7374 Sep, History of CVA with residual deficit I69.30 [facility] [id number] [place] [address] 32558- 5210 Sep, [facility] [id number] [place] [address] 12507- 4445 Sep, [facility] [id number] [place] [address] 41936- 6825 Sep, Back pain M54.9 [facility] [id number] [place] [address] 52841- 4532 Sep, Seizure disorder G40.909 [facility] [id number] [place] [address] 29972- 1395 Aug, Back pain M54.9 [facility] [id number] [place] [address] 79719- 4025 Aug, Seizure disorder G40.909 [facility] [address], [place] [address]- 8156 16 Aug, 2015 Back pain M54.9 [facility] [id number] [place] [address] 18794 2546 14 Aug, 2015 Heart failure, unspecified I50.9 [facility] [id number] [place] [address] 19187 2546 14 Aug, 2015 Medication monitoring encounter Z51.81 [facility] [id number] [place] [address] 93262- 6956 15 Jul, 2015 [facility] [id number] [place] [address] 30782- 0676 09 Jul, 2015 Seizure disorder G40.909 [facility] [address] [place] [address] 91563- 9166 05 Jul, 2015 Back pain M54.9 [facility] [id number] [place] [address] 80722- 9766 Jun, [facility] [id number] [place] [address] 13177- 4596 Jun, [facility] [id number] [place] [address] 34953- 4700 Jun, Mental status change R41.82 ; History of CVA with residual deficit I69.30 ; Back pain M54.9 and Seizure disorder G40.909 [facility] [address] [address]- 1326 Jun, [facility] [address] [address]- 2546 May, [facility] [id number] [place] [address] 21620- 2546 Apr, [facility] [address], [place] [address]- 4456 Apr, Medication monitoring encounter Z51.81 [place] [address] [id number] [place] [address]- 4031 Mar, Vomiting R11.10 [facility] [address] [id number] [place] [address]- 5926 Mar, [facility] [address] [id number] [place] [address]- 8576 Feb, [facility] [address] [id number] [place] [address]- 4763 Feb, UTI (urinary tract infection) 599.0 [facility] [address] [id number] [place] [address]- 0416 Jan, [facility] [address] [id number] [place] [address]- 5136 Jan, [facility] [address] [id number] [place] [address]- 0196 Jan, [facility] [address] [id number] [place] [address]- 4571 Dec, [facility] [address] [id number] [place] [address]- 3217 Dec, [facility] [address] [id number] [place] [address]- 8626 Dec, [facility] [address] [id number] [place] [address]- 4086 Dec, [facility] [address] [id number] [place] [address] 2546 Nov, UNKNOWN Nov, [facility] [address] [id number] [place] [address]- 2546 October, [facility] [address] [id number] [place] [address] 2546 Sep, [facility] [address] [id number] [place] [address]- 6406 Sep, [facility] [place] [facility] [address] [id number] [place] [address]- 2769 Aug, [facility] [place] [facility] [address] [id number] [place] [address]- 5929 Aug, [facility] [place] [facility] [address] [id number] [place] [address]- 8342 Jul, [facility] [place] [facility] [address] [id number] [place] [address]- 9633 Jul, [facility] [place] [facility] [address] [id number] [place] [address]- 6549 Jul, [facility] [place] [facility] [address] [id number] [place] [address]- 6474 Jul, [facility] [place] [facility] [address] [id number] [place] [address]- 0545 Jul, [facility] [place] [facility] [address] [id number] [place] [address] Jun, [facility] [place] [facility] [address] [id number] [place] [address] Jun, [facility] [place] [facility] [address] [id number] [place] [address] Jun, [facility] [place] [facility] [address] [id number] [place] [address] Jun, [facility] [place] [facility] [address] [id number], [place] [address] Jun, [facility] [place] [facility] [address] [id number] [place] [address] Jun, [facility] [place] [facility] [address] [id number] [place] [address] Jun, [facility] [place] [facility] [address] [id number], [place] [address] Jun, [facility] [place] [facility] [address] [id number] [place] [address] Jun, [facility] [place] [facility] [address] [id number] [place] [address] Jun, [facility] [place] [facility] [address] [id number] [place] [address] Jun, [facility] [place] [facility] [address] [id number] [place] [address] Jun, [facility] [place] [facility] [address] [id number] [place] [address] Jun, [facility] [place] [facility] [address] [id number] [place] [address] Jun, [facility] [place] [facility] [address] [id number] [place] [address] 57[address] Jun, [facility] [place] [facility] [address] [id number] [place] [address] 1891 Jun, [facility] [place] [facility] [address] [id number] [place] [address] 3881 Jun, [facility] [place] [facility] [address] [id number] [place] [address] 4691 Jun, [facility] [place] [facility] [address] [id number] [place] [address] 5264 May, [facility] [place] [facility] [address] [id number] [place] [address] 4738 May, [facility] [place] [facility] [address] [id number] [place] [address] 4207 30 May, 2014 [facility] [place] [facility] [address] [id number] [place] [address]- 4206 May, [facility] [place] [facility] [address] [id number] [place] [address]- 3720 19 May, 2014 [facility] [place] [facility] [address] [id number] [place] [address]- 0622 16 May, 2014 [facility] [place] [facility] [address] [id number] [place] [address]- 3350 16 May, 2014 [facility] [address] [id number] [place] [address] 1274 May, [facility] [place] [facility] [address] [id number] [place] [address]- 0894 May, [facility] [address] [id number] May, [facility] [place] [facility] [address] [id number] [place] [address]- 1089 May, [facility] [address] [id number] [place] [address]- 0244 May, [facility] [place] [facility] [address] [id number] [place] [address]- 6011 May, [facility] [address] [id number] [place] [address]- 9108 Apr, [facility] [place] [facility] [address] [id number] [place] [address]- 0409 Apr, [facility] [place] [facility] [address] [id number] [place] [address]- 1130 Apr, [facility] [place] [facility] [address] [id number] [place] [address]- 6942 Apr, [facility] [place] [facility] [address] [id number] [place] [address]- 0563 Apr, [facility] [place] [facility] [address] [id number] [place] [address]- 2568 Apr, [facility] [place] [facility] [address] [id number] [place] [address]- 2142 Mar, [facility] [place] [facility] [address] [id number] [place] [address]- 4572 Mar, [facility] [place] [facility] [address] [id number] [place] [address]- 6338 Mar, [facility] [place] [facility] [address] [id number] [place] [address]- 8056 Mar, [facility] [address] [id number] [place] [address]- 8413 Mar, [facility] [place] [facility] [address] [id number] [place] [address]- 9572 Mar, [facility] [place] [facility] [address] [id number] [place] [address]- 9365 Feb, [facility] [address] [id number] [place] [address]- 2801 24 Feb, 2014 [facility] [address] [id number] [place] [address]- 2423 Feb, [facility] [address] [id number] [place] [address]- 4721 Feb, [facility] [address] [id number] [place] [address]- 7322 Feb, [facility] [address] [id number] [place] [address]- 2545 Feb, [facility] [address] [id number] [place] [address]- 0781 Feb, [facility] [address] [id number] [place] [address]- 9490 Feb, [facility] [address] [id number] [place] [address]- 2545 Feb, [facility] [address] [id number] [place] [address]- 2549 Feb, [facility] [address] [id number] Feb, [facility] [place] [facility] [address] [id number] [place] [address]- 2548 Feb, [facility] [address] [id number] [place] [address]- 7045 Jan, [facility] [place] [facility] [address] [id number] [place] [address]- 2192 Jan, [facility] [place] [facility] [address] [id number] [place] [address]- 6112 Dec, [facility] [place] [facility] [address] [id number] [place] [address]- 2097 Dec, [facility] [place] [facility] [address] [id number] [place] [address]- 3971 Dec, [facility] [place] [facility] [address] [id number] [place] [address]- 6368 Dec, [facility] [place] [facility] [address] [id number] [place] [address]- 7630 Dec, [facility] [place] [facility] [address] [id number] [place] [address]- 9201 Dec, [facility] [place] [facility] [address] [id number] [place] [address]- 3105 Dec, [facility] [place] [facility] [address] [id number] [place] [address]- 7275 Dec, [facility] [place] [facility] [address] [id number] [place] [address]- 4898 Dec, [facility] [place] [facility] [address] [id number] [place] [address]- 1562 Dec, [facility] [place] [facility] [address] [id number] [place] [address]- 2211 Nov, [facility] [place] [facility] [address] [id number] [place] [address]- 7887 Nov, [facility] [place] [facility] [address] [id number] [place] [address]- 5294 Nov, [facility] [place] [facility] [address] [id number] [place] [address]- 1369 Nov, [facility] [place] [facility] [address] [id number] [place] [address]- 3996 Nov, [facility] [place] [facility] [address] [id number] [place] [address]- 9884 Nov, [facility] [place] [facility] [address] [id number] [place] [address]- 0293 Nov, [facility] [place] [facility] [address] [id number] [place] [address]- 8806 Nov, [facility] [place] [facility] [address] [id number] [place] [address]- 0210 Nov, [facility] [place] [facility] [address] [id number] [place] [address]- 4549 Nov, [facility] [place] [facility] [address] [id number] [place] [address]- 7376 Nov, [facility] [place] [facility] [address] [id number] [place] [address]- 1238 Nov, [facility] [place] [facility] [address] [id number] [place] [address]- 7849 Nov, [facility] [place] [facility] [address] [id number] [place] [address]- 3901 Nov, [facility] [place] [facility] [address] [id number] [place] [address]- 6732 October, [facility] [place] [facility] [address] [id number] [place] [address]- 2278 October, [facility] [place] [facility] [address] [id number] [place] [address]- 9839 October, [facility] [place] [facility] [address] [id number] [place] [address]- 4369 October, [facility] [place] [facility] [address] [id number] [place] [address]- 7304 October, [facility] [place] [facility] [address] [id number] [place] [address]- 2859 October, [facility] [place] [facility] [address] [id number] [place] [address]- 1876 October, [facility] [place] [facility] [address] [id number] [place] [address]- 6409 October, [facility] [place] [facility] [address] [id number] [place] [address]- 9259 October, [facility] [place] [facility] [address] [id number] [place] [address]- 1578 October, [facility] [place] [facility] [address] [id number] [place] [address]- 5770 Sep, [facility] [place] [facility] [address] [id number] [place] [address]- 2379 Sep, [facility] [place] [facility] [address] [id number] [place] [address]- 9262 Sep, [facility] [place] [facility] [address] [id number] [place] [address]- 4744 Sep, [facility] [place] [facility] [address] [id number] [place] [address]- 9381 Sep, [facility] [place] [facility] [address] [id number] [place] [address]- 6873 Sep, [facility] [place] [facility] [address] [id number] [place] [address]- 4539 Sep, [facility] [place] [facility] [address] [id number] [place] [address]- 6611 Sep, [facility] [place] [facility] [address] [id number] [place] [address]- 1405 Sep, [facility] [place] [facility] [address] [id number] [place] [address]- 8886 Sep, [facility] [place] [facility] [address] [id number] [place] [address]- 4893 Aug, [facility] [place] [facility] [address] [id number] [place] [address]- 7834 Aug, [facility] [place] [facility] [address] [id number] [place] [address]- 0163 Aug, [facility] [place] [facility] [address] [id number] [place] [address]- 1396 Aug, [facility] [place] [facility] [address] [facility] [id number] [place] [address]- 7347 Aug, [facility] [place] [facility] [address] [id number] [place] [address]- 7612 Aug, [facility] [place] [facility] [address] [id number] [place] [address]- 4420 Aug, [facility] [place] [facility] [address] [facility] [id number] [place] [address]- 6534 Aug, [facility] [place] [facility] [address] [facility] [id number] [place] [address]- 2915 Aug, [facility] [place] [facility] [address] [id number] [place] [address]- 6677 Jul, [facility] [place] [facility] [address] [id number] [place] [address]- 6871 Jul, [facility] [place] [facility] [address] [facility] [id number] [place] [address]- 1324 Jul, [facility] [place] [facility] [address] [id number] [place] [address]- 8037 Jul, [facility] [place] [facility] [address] [id number] [place] [address]- 5619 Jul, [facility] [place] [facility] [address] [id number] [place] [address]- 6899 Jul, [facility] [place] [facility] [address] [id number] [place] [address]- 5342 Jul, [facility] [place] [facility] [address] [facility] [id number] [place] [address]- 9627 Jul, [facility] [place] [facility] [address] [id number] [place] [address]- 1393 Jul, [facility] [place] [facility] [address] [id number] [place] [address]- 0696 Jul, [facility] [place] [facility] [address] [id number] [place] [address]- 6616 Jul, [facility] [place] [facility] [address] [id number] [place] [address]- 2732 Jul, [facility] [place] [facility] [address] [id number] [place] [address]- 4216 Jul, [facility] [place] [facility] [address] [id number] [place] [address]- 0912 Jul, [facility] [place] [facility] [address] [id number] [place] [address]- 3726 Jul, [facility] [place] [facility] [address] [id number] [place] [address]- 4691 Jul, [facility] [place] [facility] [address] [id number] [place] [address]- 8467 Jun, [facility] [place] [facility] [address] [id number] [place] [address]- 1678 Jun, [facility] [place] [facility] [address] [id number] [place] [address]- 9063 Jun, [facility] [place] [facility] [address] [id number] [place] [address]- 3496 Jun, [facility] [place] [facility] [address] [id number] [place] [address]- 8571 Jun, [facility] [place] [facility] [address] [id number] [place] [address]- 1556 Jun, [facility] [place] [facility] [address] [id number] [place] [address]- 9388 May, [facility] [place] [facility] [address] [id number] [place] [address]- 2362 May, [facility] [address] [id number] [place] [address]- 9776 May, [facility] [place] [facility] [address] [id number] [place] [address]- 1878 May, [facility] [address] [id number] [place] [address]- 6581 Apr, [facility] [place] [facility] [address] [id number] [place] [address]- 6993 Apr, [facility] [place] [facility] [address] [id number] [place] [address]- 7333 Apr, [facility] [place] [facility] [address] [id number] [place] [address]- 2196 Apr, [facility] [address] [id number] [place] [address]- 7302 Apr, [facility] [place] [facility] [address] [id number] [place] [address]- 2836 Apr, [facility] [place] [facility] [address] [id number] [place] [address]- 5948 Apr, [facility] [place] [facility] [address] [id number] [place] [address]- 0887 Apr, [facility] [place] [facility] [address] [id number] [place] [address]- 5838 Apr, [facility] [place] [facility] [address] [id number] [address]- 0582 Apr, [facility] [place] [facility] [address] [id number] [place] [address]- 8478 Apr, [facility] [place] [facility] [address] [id number] [place] [address]- 1153 Apr, [facility] [place] [facility] [address] [id number], [place] [address]- 5007 Mar, [facility] [place] [facility] [address] [id number] [place] [address]- 9070 28 Mar, 2012 [facility] [place] [facility] [address] [id number] [place] [address]- 8991 16 Mar, 2013 [facility] [place] [facility] [address] [id number] [place] [address]- 4724 16 Mar, 2013 [facility] [place] [facility] [address] [id number] [place] [address]- 8743 15 Mar, 2013 [facility] [place] [facility] [address] [id number] [place] [address]- 6005 15 Mar, 2013 [facility] [place] [facility] [address] [id number] [place] [address]- 0582 27 Feb, 2012 [facility] [place] [facility] [address] [id number] [place] [address]- 0700 25 Feb, 2013 [facility] [place] [facility] [address] [id number] [place] [address]- 9652 25 Feb, 2012 [facility] [place] [facility] [address] [id number] [place] [address]- 7551 23 Feb, 2013 [facility] [place] [facility] [address] [id number] [place] [address]- 7671 17 Feb, 2013 [facility] [place] [facility] [address] [id number] [place] [address]- 2541 10 Feb, 2013 [facility] [place] [facility] [address] [id number] [place] [address]- 2548 04 Feb, 2012 [facility] [place] [facility] [address] [id number] [place] [address]- 2540 30 Jan, 2013 [facility] [place] [facility] [address] [id number] [place] [address]- 2548 20 Jan, 2013 [facility] [place] [facility] [address] [id number] [place] [address]- 4009 15 Jan, 2013 [facility] [place] [facility] [address] [id number] [place] [address]- 5246 Jan, [facility] [place] [facility] [address] [id number] [place] [address]- 5598 Jan, [facility] [place] [facility] [address] [id number] [place] [address]- 6420 Jan, [facility] [place] [facility] [address] [id number] [place] [address]- 7915 Jan, [facility] [place] [facility] [address] [id number] [place] [address]- 8808 Dec, [facility] [place] [facility] [address] [id number] [place] [address]- 9771 Dec, [facility] [place] [facility] [address] [id number] [place] [address]- 5307 Dec, [facility] [place] [facility] [address] [id number] [place] [address]- 0072 Dec, [facility] [place] [facility] [address] [id number] [place] [address]- 6797 Dec, [facility] [place] [facility] [address] [id number] [place] [address]- 5092 Dec, [facility] [place] [facility] [address] [id number] [place] [address]- 3913 Nov, [facility] [place] [facility] [address] [id number] [place] [address]- 5706 Nov, [facility] [place] [facility] [address] [id number] [place] [address]- 0306 Nov, [facility] [place] [facility] [address] [id number] [place] [address]- 9188 Nov, [facility] [place] [facility] [address] [id number] [place] [address]- 6766 October, [facility] [place] [facility] [address] [id number] [place] [address]- 0094 October, [facility] [place] [facility] [address] [id number] [place] [address]- 2879 October, [facility] [address] [id number] [place] [address]- 8380 October, [facility] [address] [id number] [place] [address]- 6201 30 Sep, 2012 [facility] [address] [id number] [place] [address]- 7312 Sep, [facility] [address] [id number] [place] [address]- 5460 16 Sep, 2012 [facility] [address] [id number] [place] [address]- 5611 Sep, [facility] [address] [id number] [place] [address]- 9206 Sep, [facility] [address] [id number] [place] [address]- 7537 Sep, [facility] [address] [id number] [place] [address]- 5821 Sep, [facility] [address] [id number] [place] [address]- 4759 Sep, [facility] [address] [id number] [place] [address]- 9699 Aug, [facility] [address] [id number] [place] [address]- 2744 Aug, [facility] [address] [id number] [place] [address]- 2541 05 Aug, 2012 [facility] [address] [id number] [place] [address]- 0361 18 Jul, 2012 [facility] [address] [id number] [place] [address]- 2546 08 Jul, 2012 [facility] [address] [id number] [place] [address]- 0060 07 Jul, 2012 [facility] [place] [facility] [address] [id number] [place] [address]- 1286 06 Jul, 2012 [facility] [place] [facility] [address] [id number] [place] [address]- 7928 05 Jul, 2012 [facility] [place] [facility] [address] [id number] [place] [address]- 7273 Jun, [facility] [place] [facility] [address] [id number] [place] [address]- 5642 Jun, [facility] [place] [facility] [address] [id number] [place] [address]- 9299 Jun, [facility] [place] [facility] [address] [id number] [place] [address]- 8513 May, [facility] [place] [facility] [address] [id number] [place] [address]- 8128 May, [facility] [place] [facility] [address] [id number] [place] [address]- 2868 May, [facility] [place] [facility] [address] [id number] [place] [address]- 6990 May, [facility] [place] [facility] [address] [id number] [place] [address]- 9482 May, [facility] [place] [facility] [address] [id number] [place] [address]- 7032 May, [facility] [place] [facility] [address] [id number] [place] [address]- 1204 May, [facility] [place] [facility] [address] [id number] [place] [address]- 1332 Apr, [facility] [place] [facility] [address] [id number] [place] [address]- 7171 Apr, [facility] [place] [facility] [address] [id number] [place] [address]- 5142 Apr, [facility] [place] [facility] [address] [id number] [place] [address] 69[address] Apr, [facility] [place] [facility] [address] [id number] [place] [address] Apr, [facility] [place] [facility] [address] [id number] [place] [address] Apr, [facility] [place] [facility] [address] [id number] [place] [address] 67[address] Apr, [facility] [place] [facility] [address] [id number] [place] [address] Apr, [facility] [place] [facility] [address] [id number] [place] [address] 43[address] Apr, [facility] [place] [facility] [address] [id number] [place] [address] Apr, [facility] [place] [facility] [address] [facility] [id number] [place] [address] 37[address] Apr, [facility] [place] [facility] [address] [id number] [place] [address]197 Mar, [facility] [place] [facility] [address] [id number] [place] [address] Mar, [facility] [place] [facility] [address] [facility] [id number] [place] [address]- 7930 Mar, [facility] [place] [facility] [address] [id number] [place] [address] 2480 Mar, [facility] [place] [facility] [address] [id number], [place] [address] Mar, [facility] [place] [facility] [address] [id number] [place] [address]- 1124 Mar, [facility] [place] [facility] [address] [facility] [id number] [place] [address] Mar, [facility] [place] [facility] [address] [id number], [place] [address] Mar, [facility] [place] [facility] [address] [id number] [place] [address] 16 Mar, 2012 [facility] [place] [facility] [address] [id number] [place] [address]- 9870 16 Mar, 2012 [facility] [place] [facility] [address] [id number] [place] [address]- 3[address] 04 Mar, 2012 [facility] [place] [facility] [address] [id number] [place] [address], [place] [address]- [address]70 2011 [facility] [place] [facility] [address] [id number] [place] [address]258 27 Feb, 2011 [facility] [place] [facility] [address] [id number] [place] [address]- 9071 27 Feb, 2011 [facility] [place] [facility] [address] [id number] [place] [address]- 5320 26 Feb, 2011 [facility] [place] [facility] [address] [id number] [place] [address]- 9019 24 Feb, 2012 [facility] [place] [facility] [address] [id number] [place] [address]- 4286 19 Feb, 2012 [facility] [place] [facility] [address] [id number] [place] [address]- 2652 18 Feb, 2012 [facility] [place] [facility] [address] [id number] [place] [address] 3103 18 Feb, 2012 [facility] [place] [facility] [address] [id number] [place] [address]- 6020 18 Feb, 2012 [facility] [place] [facility] [address] [id number] [place] [address]- 1366 30 Jan, 2012 [facility] [place] [facility] [address] [id number] [place] [address]- [address]326 Jan, [facility] [place] [facility] [address] [id number] [place] [address]- [address] Jan, [facility] [place] [facility] [address] [id number] [place] [address]- 2324 Jan, [facility] [place] [facility] [address] [id number] [place] [address]- 0907 Dec, [facility] [place] [facility] [address] [id number] [place] [address] 4086 Dec, [facility] [place] [facility] [address] [id number] [place] [address]- 9256 Dec, [facility] [place] [facility] [address] [id number] [place] [address]- 8398 Dec, [facility] [place] [facility] [address] [id number] [place] [address]- 5639 Dec, [facility] [place] [facility] [address] [id number] [place] [address]- 4655 Dec, [facility] [place] [facility] [address] [id number] [place] [address]- 3562 Dec, [facility] [place] [facility] [address] [id number] [place] [address]- 8978 Dec, [facility] [place] [facility] [address] [id number] [place] [address]- 9014 Dec, [facility] [place] [facility] [address] [id number] [place] [address]- 9343 Dec, [facility] [place] [facility] [address] [id number] [place] [address]- 6725 Dec, [facility] [place] [facility] [address] [id number] [place] [address]- 8513 Dec, [facility] [place] [facility] [address] [id number] [place] [address]- [address]123 Dec, [facility] [place] [facility] [address] [id number] [place] [address]- 1900 Dec, [facility] [place] [facility] [address] [id number] [place] [address]- 7583 Nov, [facility] [place] [facility] [address] [id number] [place] [address]- 3702 14 Nov, 2011 [facility] [address] [id number] [place] [address]- 6685 11 Nov, 2011 [facility] [address] [id number] [place] [address]- 4453 07 Nov, 2011 [facility] [address] [id number] [place] [address]- 4649 07 Nov, 2011 [facility] [address] [id number] [place] [address]- 3520 07 Nov, 2011 [facility] [address] [id number] [place] [address]- 8616 30 Oct, 2011 [facility] [address] [id number] [place] [address]- 3065 October, [facility] [address] [id number] [place] [address]- 1821 October, [facility] [address] [id number] [place] [address]- 0617 October, [facility] [address] [id number] [place] [address]- 0980 19 Sep, 2011 [facility] [address] [id number] [place] [address]- 9203 17 Sep, 2011 [facility] [address] [id number] [place] [address]- 7118 13 Sep, 2011 [facility] [address] [id number] [place] [address]- 3638 09 Sep, 2011 [facility] [place] [facility] [address] [id number] [place] [address]- 3423 03 Sep, 2011 [facility] [address] [id number] [place] [address]- 4269 Aug, [facility] [address] [id number] [place] [address]- 1776 Aug, [facility] [address] [id number] [place] [address]- 5984 Aug, [facility] [address] [id number] [place] [address]- 5775 20 Aug, 2011 [facility] [address] [facility] [id number] [place] [address]- 3481 13 Aug, 2011 [facility] [address] [id number] [place] [address]- 5772 02 Aug, 2011 [facility] [address] [id number] [place] [address]- 2383 Aug, [facility] [address] [id number] [place] [address]- 3352 16 Jul, 2011 [facility] [address] [facility] [id number] [place] [address] 16 Jul, 2011 [facility] [address] [facility] [id number] [place] [address] 15 Jul, 2011 [facility] [address] [facility] [id number] [place] [address] 15 Jul, 2011 [facility] [address] [id number] [address] 24 Jun, [address] [id number] Jun, [facility] [address] [facility] [id number] [address] Jun, [facility] [address] [facility] [id number][place] [address] Jun, [facility] [address] [facility] [id number][place] [address] Jun, [facility] [address] [facility] [id number][place] [address] 04 Jun, 2011 [facility] [address] [facility] [id number], [place] [address] Jun, [facility] [place] [facility] [address] [id number] [place] [address] Jun, [facility] [place] [facility] [address] [id number] [id number] [address] May, [facility] [place] [facility] [address] [id number] [place] [address] May, [facility] [place] [facility] [address] [id number] [place] [address] May, [facility] [place] [facility] [address] [id number] [place] [address] May, [facility] [place] [facility] [address] [id number] [place] [address] May, [facility] [place] [facility] [address] [id number] [place] [address] May, [facility] [place] [facility] [address] [id number] [place] [address] May, [facility] [place] [facility] [address] [id number] [place] [address]687 Apr, [facility] [place] [facility] [address] [id number] [place] [address] Apr, [facility] [place] [facility] [address] [id number], [place] [address] Apr, [facility] [place] [facility] [address] [id number] [place] [address] Mar, [facility] [place] [facility] [address] [id number] [place] [address] 20 Mar, 2011 [facility] [place] [facility] [address] [id number] [place] [address]106 14 Mar, 2011 [facility] [place] [facility] [address] [id number] [place] [address] 8052 11 Mar, 2011 [facility] [place] [facility] [address] [id number] [place] [address] 9535 10 Mar, 2011 [facility] [address] [id number] [place] [address] 1102 10 Mar, 2011 [facility] [place] [facility] [address] [id number] [place] [address] 1716 10 Mar, 2011 [facility] [address] [id number] [place] [address] 6935 11 Jan, 2011 [facility] [address] [id number] [place] [address]38 27 May, 2010 [facility] [address] [id number] [place] [address] 21 May, 2010 [facility] [address] [id number] [place] [address] 1638 13 May, 2010 [facility] [address] [id number] [place] [address] 13 May, 2010 [facility] [address] [id number] [place] [address] 4825 10 May, 2010 [facility] [address] [id number] [place] [address] 1384 06 May, 2010 [facility] [address] [id number] [place] [address] 5869 29 Apr, 2010 [facility] [place] [facility] [address] [id number] [place] [address] 25[address] [address], [address] [facility] [address] [id number] [place] [address]42 19 Apr, 2010 [facility] [place] [facility] [address] [id number] [place] [address] 9766 18 Apr, 2010 [facility] [place] [facility] [address] [id number] [place] [address]45 15 Apr, 2010 [facility] [place] [facility] [address] [id number] [place] [address] Apr, [facility] [address] [id number], [place] [address] Apr, [facility] [id number], [place] [address] Apr, [facility] [id number], [place] [address] Apr, [facility] [address] [facility] [id number], [place] [address] Apr, [facility] [address] [facility] [id number][place] [address] Mar, [facility] [id number], [place] [address] Mar, [facility] [id number], [place] [address] Mar, [facility] [id number], [place] [address] Mar, [facility] [id number], [place] [address] Mar, [facility] [id number], [place] [address] Dec, [facility] [address] [id number], [place] [address] Nov, IMMUNIZATIONS No Known Immunizations SOCIAL HISTORY Never Assessed REASON FOR VISIT Controlled Med Refill PLAN OF CARE VITAL SIGNS MEDICATIONS Medication Instructions Dosage Frequency Start Date End Date Duration Status Fentanyl 75 MCG/HR Transdermal every 72 hours 1 patch to skin Sep, 30 days Active RESULTS No Results PROCEDURES [...] surgery and skin graft, cholecysectomy Hospitalization History [facility] 12/2016 Hospitalization History [facility] 08/2017
--- OUTSIDE RECORDS SUMMARY | 2018-02-04 13:09 | XMS REPORT ---
Author Author OMKAR SERRANO Organization [facility] Address [address] [place] [address] Care Team Providers Care Tester Equipment Name Role Phone OMKAR SERRANO Unavailable PROBLEMS Type Condition ICD9-CM Code WVA84-FC Code Onset Dates Condition Status SNOMED Code Problem Anemia, unspecified type D64.9 Active 043657210 Problem Personality disorder F60.9 Active 01228449 Problem Factitious disorder imposed on self, recurrent episode F68.10 Active 64517427 Problem Ventral hernia without obstruction or gangrene K43.9 Active 041763244 Problem Allergic state, subsequent encounter T78.40XD Active 189111791 Problem Anxiety F41.9 Active 21699476 Problem Age-related osteoporosis without current pathological fracture M81.0 Active 76798735 Problem Unspecified psychosis not due to a substance or known physiological condition F29 Active 06002828 Problem Iron deficiency anemia, unspecified iron deficiency anemia type D50.9 Active 75928544 Problem History of CVA with residual deficit I69.30 Active 255742909 Problem Seizure disorder G40.909 Active 011360832 Problem Perennial allergic rhinitis, unspecified allergic rhinitis trigger J30.89 Active 411497947 Problem Chronic kidney disease, unspecified stage N18.9 Active 202638431 Problem Back pain M54.9 Active 211018226 Problem Gastroesophageal reflux disease without esophagitis K21.9 Active 278306329 Problem Insomnia, unspecified type G47.00 Active 997662218 Problem History of colon polyps Z86.010 Active 629329734 ALLERGIES Substance Reaction Event Type Date Status Vibramycin Unknown Drug Allergy Sep, Active Tegretol Unknown Drug Allergy Sep, Active SulfADIAZINE Unknown Drug Allergy Sep, Active Penicillin V Potassium Unknown Drug Allergy Sep, Active Darvocet A500 Unknown Drug Allergy Sep, Active Codeine Phosphate Unknown Drug Allergy Sep, Active Aspirin Unknown Drug Allergy Sep, Active ENCOUNTERS Encounter Location Date Diagnosis [place] [address] [address] Jan, [place] [id number] [place] [address] 47785- 2032 Jan, [place] [id number] [place] [address] 07845- 6434 Dec, Back pain M54.9 ; Seizure disorder G40.909 ; Ventral hernia without obstruction or gangrene K43.9 and History of CVA with residual deficit I69.30 [place] [id number] [place] [address] 49816- 4999 Dec, Unspecified psychosis not due to a substance or known physiological condition F29 ; Personality disorder F60.9 and Factitious disorder imposed on self, recurrent episode F68.10 [place] [id number] [place] [address] 03575- 9751 Dec, [place] [id number] [place] [address] 72818- 2025 Dec, Back pain M54.9 [place] [id number] [place] [address] 33527- 5898 Dec, Factitious disorder imposed on self, recurrent episode F68.10 ; Personality disorder F60.9 ; Insomnia, unspecified type G47.00 and Anxiety F41.9 [place] [id number] [place] [address] 02006- 4657 Nov, Unspecified psychosis not due to a substance or known physiological condition F29 ; Personality disorder F60.9 and Factitious disorder imposed on self, recurrent episode F68.10 [place] [id number] [place] [address] 97689- 9516 Nov, Back pain M54.9 [place] [id number] [place] [address] 59577- 9555 Nov, Unspecified psychosis not due to a substance or known physiological condition F29 ; Personality disorder F60.9 and Factitious disorder imposed on self, recurrent episode F68.10 [facility] [id number] [place] [address] 91762- 4931 October, [facility] [id number] [place] [address] 79982- 0433 October, [facility] [id number] [place] [address] 41796- 3887 October, Unspecified psychosis not due to a substance or known physiological condition F29 ; Personality disorder F60.9 and Factitious disorder imposed on self, recurrent episode F68.10 [facility] [id number] [place] [address] 91598- 0679 October, Back pain M54.9 [facility] [id number] [place] [address] 21836- 2128 October, Seizure disorder G40.909 ; Back pain M54.9 and Allergic state, subsequent encounter T78.40XD [facility] [id number] [place] [address] 98511- 0956 October, [facility] [id number] [place] [address] 80203- 7305 Sep, Back pain M54.9 [facility] [address], [place] [address]- 0268 Sep, Unspecified psychosis not due to a substance or known physiological condition F29 ; Personality disorder F60.9 and Factitious disorder imposed on self, recurrent episode F68.10 [facility] [address], [place] [address]- 0026 Sep, [facility] [id number] [place] [address] 44165- 0017 Sep, [facility] [address], [place] [address]- 1667 Sep, [facility] [id number] [address] 7785 Sep, [facility] [address] [address] 4748 Aug, [facility] [id number] [address] 2632 Aug, Back pain M54.9 [facility] [address], [place] [address]- 8659 Aug, Factitious disorder imposed on self, recurrent episode F68.10 ; Personality disorder F60.9 ; Insomnia, unspecified type G47.00 and Anxiety F41.9 [facility] [address], [place] [address]- 6341 Aug, Back pain M54.9 ; Iron deficiency anemia, unspecified iron deficiency anemia type D50.9 ; Chronic kidney disease, unspecified stage N18.9 and Breast cancer screening Z12.31 [facility] [id number] [id number] Jul, Back pain M54.9 [facility] [id number] [id number] Jul, [facility] [id number] [id number] Jul, [facility] [id number] [id number] Jun, Back pain M54.9 [facility] [id number] [id number] Jun, [facility] [id number] [id number] Jun, Back pain M54.9 [facility] [id number], [place] [address] 2542 Jun, Back pain M54.9 ; Seizure disorder G40.909 and Age-related osteoporosis without current pathological fracture M81.0 [facility] [id number] [id number] May, [facility] [address] [place] [address] 95679- 4426 May, Back pain M54.9 [facility] [address], [place] [address]- 3015 Apr, Back pain M54.9 ; Encounter for immunization Z23 ; Gastroesophageal reflux disease without esophagitis K21.9 ; Age-related osteoporosis without current pathological fracture M81.0 and Chronic pruritus L29.9 [facility] [address] [place] [address] 06354- 5064 16 Apr, 2017 History of CVA with residual deficit I69.30 [facility] [address] [place] [address] 73180- 9769 Apr, Factitious disorder imposed on self, recurrent episode F68.10 and Personality disorder F60.9 [facility] [id number] [place] [address] [id number] Apr, Back pain M54.9 [facility] [address] [place] [address] 78270- 8078 Mar, Factitious disorder imposed on self, recurrent episode F68.10 [facility] [address], [place] [address]- 7693 Mar, [facility] [id number] [place] [address] [id number] Mar, [facility] [id number] [address] Mar, Back pain M54.9 [facility] [address] [place] [address] 74029- 3187 05 Mar, 2017 Back pain M54.9 ; Seizure disorder G40.909 and Age-related osteoporosis without current pathological fracture M81.0 [facility] [address] [place] [address] 29674- 5132 Feb, History of CVA with residual deficit I69.30 [facility] [address], [place] [address]- 1060 Feb, Factitious disorder imposed on self, recurrent episode F68.10 and Personality disorder F60.9 [facility] [address], [place] [address]- 2420 15 Feb, 2017 Back pain M54.9 [facility] [id number] [place] [address] 05982- 6359 Feb, [facility] [address] [place] [address] 79813- 6392 Jan, [facility] and [address] [id number] Jan, Age- related osteoporosis without current pathological fracture M81.0 and Allergic state, subsequent encounter T78.40XD [facility] [address] [place] [address] 15683- 4547 Jan, Factitious disorder imposed on self, recurrent episode F68.10 and Personality disorder F60.9 [facility] [address] [place] [address] 80198- 5805 Dec, Back pain M54.9 [facility] [address], [place] [address]- 9930 Dec, Personality disorder F60.9 and Factitious disorder imposed on self, recurrent episode F68.10 [facility] [id number] [id number] Dec, Back pain M54.9 [facility] [id number] [id number] Dec, [facility] [id number] [place] [address] [id number] Dec, [facility] [address], [place] [address]- 7176 Dec, [facility] [id number], [place] [address]- 5478 Nov, [facility] [id number] [place] [address] 04853- 8622 Nov, Back pain M54.9 ; Anemia, unspecified type D64.9 and History of colon polyps Z86.010 [facility] [address], [place] [address]- 4553 Nov, Back pain M54.9 [facility] [id number] [place] [address] [id number] October, Back pain M54.[address] [id number] October, Back pain M54.9 and Gastroesophageal reflux disease without esophagitis K21.9 [facility] [id number] [place] [address] [id number] Sep, [facility] [id number] [place] [address] 61881- 6133 Sep, [facility] [id number] [place] [address] 06452- 1232 Sep, [facility] [id number] [place] [address] 19208- 7060 Sep, [facility] [id number] [place] [address] 79301- 3833 Sep, [facility] [id number] [place] [address] 21198- 7339 Sep, Seizure disorder G40.909 [facility] [id number] [place] [address] 43894- 3219 Sep, Back pain M54.9 [facility] [id number] [place] [address] 75291- 1818 Sep, [facility] [address], [place] [address]- 3481 Aug, Back pain M54.9 [facility] [address], [place] [address]- 2007 29 Aug, 2016 Seizure disorder G40.909 [facility] [id number] [place] [address] [id number] 17 Aug, 2016 [facility] [id number] [id number] 16 Aug, 2016 Back pain M54.9 [facility] [id number] [place] [address] [id number] 14 Aug, 2016 Back pain M54.9 [facility] [id number] [id number] 06 Aug, 2016 Back pain M54.9 [facility] and [address] [id number] Jul, Weakness R53.1 [facility] [address] [place] [address] 64622- 4349 Jul, Seizure disorder G40.909 [facility] [address], [place] [address]- 7457 Jul, [facility] [id number] [place] [address] 13078- 9889 Jul, Breast cancer screening Z12.39 [facility] [id number] [place] [address] 88407- 7295 Jul, [facility] [address], [place] [address]- 7568 Jul, [facility] [address], [place] [address]- 1501 Jul, [facility] [id number] [place] [address] 60675- 5205 13 Jul, 2016 Seizure disorder G40.909 ; Fatigue, unspecified type R53.83 ; Perennial allergic rhinitis, unspecified allergic rhinitis trigger J30.89 and Chronic kidney disease, unspecified stage N18.9 [facility] [address], [place] [address]- 6942 Jul, [facility] [id number] [place] [address] 22716- 3727 Jul, Seizure disorder G40.909 [facility] [address], [place] [address]- 9555 Jun, [facility] [id number] [place] [address] 81911- 3816 Jun, [address] [id number] Jun, Perennial allergic rhinitis, unspecified allergic rhinitis trigger J30.89 [facility] [id number] [place] [address] [id number] Jun, [facility] [id number] [place] [address] 83919- 9972 Jun, Seizure disorder G40.909 [facility] [id number] [place] [address] [id number] Jun, [facility] [id number] [place] [address] [id number] May, [facility] [id number] [place] [address] 86698- 0135 May, [facility] [address], [place] [address]- 5907 May, [facility] [address] [place] [address] 06733- 9782 May, [facility] [address], [place] [address]- 2307 May, History of CVA with residual deficit I69.30 [facility] [address], [place] [address]- 3544 May, [facility] [address], [place] [address]- 5871 May, [facility] [address], [place] [address]- 3411 May, [facility] [id number] [place] [address] 29535- 7945 May, Seizure disorder G40.909 [facility] [address] [place] [address] 53314- 2512 May, [employer] [facility] [address] [place] [address] May, Back pain M54.9 and Seizure disorder G40.909 [facility] [address] [place] [address] 11392- 8029 Apr, [facility] [id number] [place] [address] 34370- 4898 Apr, Back pain M54.9 [facility] [id number] [place] [address] 41009- 7555 Mar, [employer] [address] [place] [address] Mar, Insomnia, unspecified type G47.00 [facility] [id number] [place] [address] 94446- 8625 Mar, [facility] [id number] [place] [address] 99204- 1827 Feb, [facility] [address] [place] [address] 58247- 0425 Feb, [facility] [address] [place] [address] 50004- 7633 Feb, [facility] [id number] [place] [address] 01876- 5394 Jan, [facility] [address], [place] [address]- 3159 Jan, [employer] [address] [place] [address] Jan, Seizure disorder G40.909 and Back pain M54.9 [facility] [address], [place] [address]- 2606 Dec, [facility] [address] [place] [address] 37477- 8106 Dec, [facility] [id number] [place] [address] 00478- 7546 Dec, [facility] [id number] [place] [address] 54015- 2421 Nov, [facility] [id number] [place] [address] 64486- 5436 Nov, [facility] [id number] [place] [address] 21551- 0254 Nov, Back pain M54.9 [facility] [id number] [place] [address] 33172- 5348 October, [facility] [id number] [place] [address] 30100- 9432 October, Back pain M54.9 [facility] [id number] [place] [address] 54661- 1790 October, Seizure disorder G40.909 and B12 deficiency E53.8 [facility] [id number] [place] [address] 88943- 2065 Sep, History of CVA with residual deficit I69.30 [facility] [address] [place] [address] 59226- 7208 Sep, [facility] [id number] [place] [address] 61276- 7847 Sep, [facility] [id number] [place] [address] 02796- 9854 Sep, Back pain M54.9 [facility] [id number] [place] [address] 06188- 3487 Sep, Seizure disorder G40.909 [facility] [id number] [place] [address] 94570- 6111 Aug, Back pain M54.9 [facility] [id number] [place] [address] 55658- 6794 18 Aug, 2015 Seizure disorder G40.909 [facility] [id number] [place] [address] 92053- 5229 16 Aug, 2015 Back pain M54.9 [facility] [id number] [place] [address] 49075- 0510 14 Aug, 2015 Heart failure, unspecified I50.9 [facility] [id number] [place] [address] 41910- 4460 14 Aug, 2015 Medication monitoring encounter Z51.81 [facility] [id number] [place] [address] 39281- 7175 15 Jul, 2015 [facility] [id number] [place] [address] 56164- 6193 09 Jul, 2015 Seizure disorder G40.909 [facility] [id number] [place] [address] 80387- 0254 05 Jul, 2015 Back pain M54.9 [facility] [id number] [place] [address] 07168- 6293 Jun, [facility] [id number] [place] [address] 91485- 3412 Jun, [facility] [id number] [place] [address] 83677- 7285 Jun, Mental status change R41.82 ; History of CVA with residual deficit I69.30 ; Back pain M54.9 and Seizure disorder G40.909 [facility] [id number] [place] [address] 23130- 3825 Jun, [facility] [id number] [place] [address] 87150- 2546 May, [facility] [address] [id number], [place] [address]- 0086 Apr, [facility] [address] [facility] [id number], [place] [address]- 2546 Apr, Medication monitoring encounter Z51.81 [facility] [address] [id number], [place] [address]- 9586 Mar, Vomiting R11.10 [facility] [address] [id number], [place] [address]- 2546 Mar, [facility] [address] [id number], [place] [address]- 9706 Feb, [facility] [address] [facility] [id number], [place] [address]- 9556 Feb, UTI (urinary tract infection) 599.0 [facility] [address] [id number], [place] [address]- 0556 Jan, [facility] [address] [id number], [place] [address]- 4756 Jan, [facility] [address] [facility] [id number], [place] [address]- 6226 Jan, [facility] [address] [id number], [place] [address]- 7486 Dec, [facility] [address] [id number], [place] [address]- 1906 Dec, [facility] [address] [id number], [place] [address]- 9886 Dec, [facility] [address] [id number], [place] [address]- 2546 Dec, [facility] [address] [facility] [id number], [place] [address]- 2546 Nov, UNKNOWN Nov, [facility] [address] [id number] [place] [address]- 9727 October, [facility] [place] [facility] [address] [id number] [place] [address]- 5838 Sep, [facility] [place] [facility] [address] [id number] [place] [address]- 1722 Sep, [facility] [place] [facility] [address] [id number] [place] [address]- 7926 Aug, [facility] [place] [facility] [address] [id number] [place] [address] Aug, [facility] [place] [facility] [address] [id number] [place] [address] Jul, [facility] [place] [facility] [address] [id number] [place] [address] Jul, [facility] [place] [facility] [address] [id number] [place] [address] Jul, [facility] [place] [facility] [address] [id number] [place] [address] Jul, [facility] [place] [facility] [address] [id number] [place] [address] Jul, [facility] [place] [facility] [address] [facility] [id number] [place] [address] Jun, [facility] [place] [facility] [address] [id number] [place] [address] Jun, [facility] [place] [facility] [address] [id number] [place] [address] Jun, [facility] [place] [facility] [address] [id number] [place] [address] Jun, [facility] [place] [facility] [address] [id number] [place] [address] Jun, [facility] [place] [facility] [address] [facility] [id number] [place] [address] Jun, [facility] [place] [facility] [address] [id number] [place] [address] Jun, [facility] [place] [facility] [address] [id number] [place] [address] Jun, [facility] [place] [facility] [address] [id number] [place] [address] Jun, [facility] [place] [facility] [address] [id number] [place] [address] Jun, [facility] [place] [facility] [address] [id number] [place] [address] Jun, [facility] [place] [facility] [address] [id number] [place] [address] Jun, [facility] [place] [facility] [address] [id number] [place] [address] 8575 Jun, [facility] [place] [facility] [address] [id number] [place] [address] 7182 Jun, [facility] [place] [facility] [address] [id number] [place] [address] 2407 Jun, [facility] [place] [facility] [address] [id number] [place] [address] 2546 Jun, [facility] [place] [facility] [address] [id number] [place] [address]- 8855 Jun, [facility] [place] [facility] [address] [id number], [place] [address] Jun, [facility] [place] [facility] [address] [id number] [place] [address] 9209 May, [facility] [place] [facility] [address] [id number] [place] [address] 5336 May, [facility] [place] [facility] [address] [id number] [place] [address]- 2792 May, [facility] [place] [facility] [address] [id number], [place] [address] 30 May, 2014 [facility] [place] [facility] [address] [id number] [place] [address]- 7186 May, [facility] [place] [facility] [address] [id number] [place] [address]- 4674 May, [facility] [place] [facility] [address] [id number] [place] [address]- 5873 May, [facility] [place] [facility] [address] [id number] [place] [address]- 0759 May, [facility] [place] [facility] [address] [id number] [place] [address]- 7978 May, [facility] [address] [place] [id number] May, [facility] [place] [facility] [address] [id number] [place] [address]- 0399 May, [facility] [place] [facility] [address] [id number] [place] [address]- 3703 May, [facility] [place] [facility] [address] [id number] [place] [address] May, [facility] [place] [facility] [address] [id number] [place] [address]- 9773 Apr, [facility] [place] [facility] [address] [id number] [place] [address]- 7091 Apr, [facility] [place] [facility] [address] [id number], [place] [address] Apr, [facility] [place] [facility] [address] [id number] [place] [address]- 8307 Apr, [facility] [place] [facility] [address] [id number] [place] [address]- 2214 Apr, [facility] [place] [facility] [address] [id number] [place] [address]- 9949 Apr, [facility] [place] [facility] [address] [id number] [place] [address]- 0955 Mar, [facility] [address] [id number] [place] [address] 4951 Mar, [facility] [place] [facility] [address] [id number] [place] [address]- 8986 Mar, [facility] [address] [id number] [place] [address]- 4069 Mar, [facility] [place] [facility] [address] [id number] [place] [address]- 6198 Mar, [facility] [address] [id number] [place] [address]- 2674 Mar, [facility] [address] [id number] [place] [address]- 8414 Feb, [facility] [address] [id number] [place] [address]- 1502 24 Feb, 2014 [facility] [address] [id number] [place] [address] 3132 23 Feb, 2014 [facility] [place] [facility] [address] [id number] [place] [address]- 8918 23 Feb, 2013 [facility] [address] [id number], [place] [address] 19 Feb, 2014 [facility] [place] [facility] [address] [id number] [place] [address] 2540 19 Feb, 2013 [facility] [place] [facility] [address] [id number], [place] [address] 2549 19 Feb, 2013 [facility] [place] [facility] [address] [id number] [place] [address]- 1758 19 Feb, 2013 [facility] [place] [facility] [address] [id number] [place] [address]- 2549 12 Feb, 2013 [facility] [address] [id number] [place] [address]- 3851 Feb, [facility] [address] [place] [id number] Feb, [facility] [place] [facility] [address] [id number] [place] [address]- 9039 Feb, [facility] [place] [facility] [address] [id number] [place] [address]- 6972 Jan, [facility] [place] [facility] [address] [id number] [place] [address]- 1191 Jan, [facility] [place] [facility] [address] [id number] [place] [address]- 0605 Dec, [facility] [place] [facility] [address] [id number] [place] [address]- 7957 Dec, [facility] [place] [facility] [address] [id number] [place] [address]- 3238 Dec, [facility] [place] [facility] [address] [id number] [place] [address]- 5531 Dec, [facility] [place] [facility] [address] [id number] [place] [address]- 8945 Dec, [facility] [place] [facility] [address] [id number] [place] [address]- 6940 Dec, [facility] [place] [facility] [address] [id number] [place] [address]- 8157 Dec, [facility] [place] [facility] [address] [id number] [place] [address]- 4006 Dec, [facility] [place] [facility] [address] [id number] [place] [address]- 5923 Dec, [facility] [place] [facility] [address] [id number] [place] [address]- 9441 Dec, [facility] [place] [facility] [address] [id number] [place] [address]- 5828 Nov, [facility] [place] [facility] [address] [id number] [place] [address] 2844 Nov, [facility] [place] [facility] [address] [id number] [place] [address]- 7254 Nov, [facility] [place] [facility] [address] [id number] [place] [address]- 2969 Nov, [facility] [place] [facility] [address] [id number] [place] [address]- 8958 Nov, [facility] [place] [facility] [address] [id number] [place] [address]- 5322 Nov, [facility] [place] [facility] [address] [id number] [place] [address]- 1504 Nov, [facility] [place] [facility] [address] [id number] [place] [address]- 5504 Nov, [facility] [place] [facility] [address] [id number] [place] [address]- 8734 Nov, [facility] [place] [facility] [address] [id number] [place] [address]- 8228 Nov, [facility] [place] [facility] [address] [id number] [place] [address]- 8153 Nov, [facility] [place] [facility] [address] [id number] [place] [address]- 3175 Nov, [facility] [place] [facility] [address] [id number], [place] [address] 1999 Nov, [facility] [place] [facility] [address] [id number], [place] [address]- 2883 Nov, [facility] [place] [facility] [address] [id number] [place] [address]- 9132 October, [facility] [place] [facility] [address] [id number] [place] [address]- 7205 October, [facility] [place] [facility] [address] [id number] [place] [address]- 5107 October, [facility] [place] [facility] [address] [id number] [place] [address]- 2397 October, [facility] [place] [facility] [address] [id number] [place] [address]- 8666 October, [facility] [place] [facility] [address] [id number] [place] [address]- 4438 October, [facility] [place] [facility] [address] [id number] [place] [address]- 6489 October, [facility] [place] [facility] [address] [id number] [place] [address]- 6935 October, [facility] [place] [facility] [address] [id number] [place] [address]- 4136 October, [facility] [place] [facility] [address] [id number] [place] [address]- 7615 October, [facility] [place] [facility] [address] [id number] [place] [address]- 8936 Sep, [facility] [place] [facility] [address] [id number] [place] [address]- 0096 Sep, [facility] [place] [facility] [address] [id number] [place] [address]- 9080 Sep, [facility] [place] [facility] [address] [id number] [place] [address]- 4105 Sep, [facility] [place] [facility] [address] [id number] [place] [address]- 4447 Sep, [facility] [place] [facility] [address] [id number] [place] [address]- 4286 Sep, [facility] [place] [facility] [address] [id number] [place] [address]- 2756 Sep, [facility] [place] [facility] [address] [id number] [place] [address]- 9472 Sep, [facility] [place] [facility] [address] [id number] [place] [address]- 2550 Sep, [facility] [place] [facility] [address] [id number] [place] [address]- 4894 Sep, [facility] [place] [facility] [address] [id number] [place] [address]- 7826 Aug, [facility] [place] [facility] [address] [id number] [place] [address] Aug, [facility] [place] [facility] [address] [id number] [place] [address]- 7000 Aug, [facility] [place] [facility] [address] [id number] [place] [address]- 9873 Aug, [facility] [place] [facility] [address] [id number] [place] [address]- 7422 Aug, [facility] [place] [facility] [address] [id number] [place] [address]- 4786 Aug, [facility] [place] [facility] [address] [id number] [place] [address]- 0334 Aug, [facility] [place] [facility] [address] [id number] [place] [address]- 7493 Aug, [facility] [place] [facility] [address] [id number] [place] [address]- 0049 Aug, [facility] [place] [facility] [address] [id number] [place] [address]- 5336 Jul, [facility] [place] [facility] [address] [id number] [place] [address]- 1804 Jul, [facility] [place] [facility] [address] [id number] [place] [address]- 2899 Jul, [facility] [place] [facility] [address] [id number] [place] [address]- 8816 Jul, [facility] [place] [facility] [address] [id number] [place] [address]11 Jul, [facility] [place] [facility] [address] [id number] [place] [address]- 9646 Jul, 2013 [facility] [place] [facility] [address] [id number] [place] [address]- 1536 Jul, 2013 [facility] [place] [facility] [address] [id number] [place] Jul, 2013 [facility] [place] [facility] [address] [id number] [place] [address]- 2096 Jul, 2013 [facility] [place] [facility] [address] [id number] [place] [address]- 2546 Jul, 2013 [facility] [place] [facility] [address] [id number] [place] [address]- 2086 Jul, [facility] [place] [facility] [address] [id number] [place] [address]- 2966 Jul, [facility] [place] [facility] [address] [id number] [place] [address]- 0868 Jul, [facility] [place] [facility] [address] [id number] [place] [address]- 2683 Jul, [facility] [place] [facility] [address] [id number] [place] [address]- 8374 Jul, [facility] [place] [facility] [address] [id number] [place] [address]- 0001 Jul, [facility] [place] [facility] [address] [id number] [place] [address]- 3058 Jun, [facility] [place] [facility] [address] [id number] [place] [address]- 8351 Jun, [facility] [place] [facility] [address] [id number] [place] [address]- 2836 Jun, [facility] [place] [facility] [address] [id number] [place] Jun, [facility] [place] [facility] [address] [id number] [place] [address]- 8966 Jun, [facility] [place] [facility] [address] [id number] [place] [address]- 8903 Jun, [facility] [place] [facility] [address] [id number] [place] [address]- 4530 May, [facility] [place] [facility] [address] [id number] [place] [address]- 7386 May, [facility] [place] [facility] [address] [id number] [place] [address]- 8957 May, [facility] [place] [facility] [address] [id number] [place] [address]- 1366 May, [facility] [place] [facility] [address] [id number] [place] [address]- 3683 Apr, [facility] [place] [facility] [address] [id number] [place] [address]- 0436 Apr, [facility] [place] [facility] [address] [id number], [place] [address]- 9817 Apr, [facility] [place] [facility] [address] [id number] [place] [address]- 8475 Apr, [facility] [place] [facility] [address] [id number] [place] [address]- 2817 Apr, [facility] [place] [facility] [address] [id number], [place] [address]- 4050 Apr, [facility] [place] [facility] [address] [id number], [place] [address]- 5835 Apr, [facility] [place] [facility] [address] [id number] [place] [address]- 2717 Apr, [facility] [place] [facility] [address] [id number], [place] [address]- 0397 Apr, [facility] [place] [facility] [address] [id number], [place] [address]- 3072 Apr, [facility] [place] [facility] [address] [id number] [place] [address]- 3881 12 Apr, 2013 [facility] [place] [facility] [address] [id number] [place] [address]- 0488 Apr, [facility] [place] [facility] [address] [id number] [place] [address]- 6163 28 Mar, 2013 [facility] [place] [facility] [address] [id number] [place] [address]- 5974 28 Mar, 2013 [facility] [place] [facility] [address] [id number] [place] [address] 2541 16 Mar, 2013 [facility] [place] [facility] [address] [id number] [place] [address]- 7330 16 Mar, 2013 [facility] [place] [facility] [address] [id number] [place] [address]- 0091 15 Mar, 2013 [facility] [place] [facility] [address] [id number] [place] [address]- 5943 15 Mar, 2013 [facility] [place] [facility] [address] [id number] [place] [address]- 2542 27 Feb, 2012 [facility] [place] [facility] [address] [id number] [place] [address] 2548 25 Feb, 2012 [facility] [place] [facility] [address] [id number] [place] [address]- 2542 25 Feb, 2012 [facility] [place] [facility] [address] [id number] [place] [address] 2540 23 Feb, 2012 [facility] [place] [facility] [address] [id number] [place] [address] 2543 17 Feb, 2012 [facility] [place] [facility] [address] [id number] [place] [address] 2542 10 Feb, 2013 [facility] [place] [facility] [address] [id number] [place] [address]- 2545 04 Feb, 2012 [facility] [place] [facility] [address] [id number] [place] [address] 2545 Jan, [facility] [place] [facility] [address] [id number] [place] [address]- 6137 Jan, [facility] [place] [facility] [address] [id number] [place] [address]- 3711 Jan, [facility] [place] [facility] [address] [id number] [place] [address]- 9921 Jan, [facility] [place] [facility] [address] [id number] [place] [address]- 8760 Jan, [facility] [place] [facility] [address] [id number] [place] [address]- 9903 Jan, [facility] [place] [facility] [address] [id number] [place] [address]- 4615 Jan, [facility] [place] [facility] [address] [id number] [place] [address]- 2733 Dec, [facility] [place] [facility] [address] [id number] [place] [address]- 5269 Dec, [facility] [place] [facility] [address] [id number] [place] [address]- 7056 Dec, [facility] [place] [facility] [address] [id number] [place] [address]- 2966 Dec, [facility] [place] [facility] [address] [id number] [place] [address]- 3786 Dec, [facility] [place] [facility] [address] [id number] [place] [address]- 2104 Dec, [facility] [place] [facility] [address] [id number] [place] [address]- 8349 Nov, [facility] [place] [facility] [address] [id number] [place] [address]- 0784 Nov, [facility] [place] [facility] [address] [id number] [place] [address]- 6484 Nov, [facility] [place] [facility] [address] [id number] [place] [address]- 6523 Nov, [facility] [address] [id number] [place] [address]- 5221 October, [facility] [address] [id number] [place] [address]- 0349 October, [facility] [address] [id number] [place] [address]- 2807 October, [facility] [address] [id number] [place] [address]- 4723 October, [facility] [address] [id number] [place] [address]- 7277 Sep, [facility] [address] [id number] [place] [address]- 7305 Sep, [facility] [address] [id number] [place] [address]- 3866 Sep, [facility] [address] [id number] [place] [address]- 5095 Sep, [facility] [address] [id number] [place] [address]- 0781 Sep, [facility] [address] [id number] [place] [address]- 7425 Sep, [facility] [address] [id number] [place] [address]- 9625 Sep, [facility] [place] [facility] [address] [id number] [place] [address]- 4282 Sep, [facility] [place] [facility] [address] [id number] [place] [address]- 9108 Aug, [facility] [place] [facility] [address] [id number] [place] [address]- 0462 Aug, [facility] [place] [facility] [address] [id number] [place] [address]- 7918 Aug, [facility] [place] [facility] [address] [id number] [place] [address]- 8934 18 Jul, 2012 [facility] [address] [id number] [place] [address]- 2236 08 Jul, 2012 [facility] [place] [facility] [address] [id number] [place] [address] 2546 07 Jul, 2012 [facility] [address] [id number] [place] [address] 2546 06 Jul, 2012 [facility] [place] [facility] [address] [id number] [place] [address] 254 05 Jul, 2012 [facility] [address] [id number] [place] [address]- 8314 Jun, [facility] [address] [id number] [place] [address]- 1201 Jun, [facility] [address] [id number] [place] [address]- 8169 Jun, [facility] [address] [id number] [place] [address]- 5243 May, [facility] [address] [id number] [place] [address]- 9973 May, [facility] [address] [facility] [id number] [place] [address]- 4512 May, [facility] [address] [id number] [place] [address]- 0216 May, [facility] [place] [facility] [address] [id number] [place] [address] 2546 May, [facility] [place] [facility] [address] [id number] [place] [address] May, [facility] [place] [facility] [address] [id number] [place] [address] 25[address] May, [facility] [place] [facility] [address] [id number] [place] [address] Apr, [facility] [place] [facility] [address] [id number] [place] [address] Apr, [facility] [place] [facility] [address] [id number], [place] [address] Apr, [facility] [place] [facility] [address] [facility] [id number] [place] [address] Apr, [facility] [place] [facility] [address] [id number], [place] [address] Apr, [facility] [place] [facility] [address] [id number] [place] [address] Apr, [facility] [place] [facility] [address] [id number], [place] [address] Apr, [facility] [place] [facility] [address] [id number], [place] [address] Apr, [facility] [place] [facility] [address] [id number], [place] [address] Apr, [facility] [place] [facility] [address] [id number], [place] [address] Apr, [facility] [place] [facility] [address] [id number], [place] [address] Apr, [facility] [place] [facility] [address] [id number], [place] [address] Mar, [facility] [place] [facility] [address] [id number], [place] [address] Mar, [facility] [place] [facility] [address] [id number], [place] [address] Mar, [facility] [place] [facility] [address] [id number], [place] [address] Mar, [facility] [place] [facility] [address] [id number], [place] [address] Mar, [facility] [place] [facility] [address] [id number] [place] [address] 23 Mar, 2012 [facility] [place] [facility] [address] [id number] [place] [address] 19 Mar, 2011 [facility] [place] [facility] [address] [id number] [place] [address] 2546 19 Mar, 2011 [facility] [place] [facility] [address] [id number] [place] [address]- [address] 16 Mar, 2012 [facility] [place] [facility] [address] [id number] [place] [address] 2540 16 Mar, 2012 [facility] [place] [facility] [address] [id number] [place] [address]- [address] 04 Mar, 2012 [facility] [place] [facility] [address] [id number] [place] [address]- 119[address] 28 Sep, 2011 [facility] [place] [facility] [address] [id number] [place] [address]- [address] 27 Sep, 2011 [facility] [place] [facility] [address] [id number] [place] [address]- [address] 27 Sep, 2011 [facility] [place] [facility] [address] [id number] [place] [address] 2548 26 Sep, 2011 [facility] [place] [facility] [address] [facility] [id number] [place] [address] 24 Sep, 2011 [facility] [place] [facility] [address] [id number] [place] [address] 2546 19 Sep, 2011 [facility] [place] [facility] [address] [id number] [place] [address] 254 18 Sep, 2011 [facility] [place] [facility] [address] [id number] [place] [address] 2546 18 Sep, 2011 [facility] [place] [facility] [address] [facility] [id number] [place] [address] 2549 18 Sep, 2011 [facility] [place] [facility] [address] [id number] [place] [address] 2544 Jan, [facility] [place] [facility] [address] [id number] [place] [address] Jan, [facility] [place] [facility] [address] [id number] [place] [address] Jan, [facility] [place] [facility] [address] [id number] [place] [address] Jan, [facility] [place] [facility] [address] [id number] [place] [address] Dec, [facility] [place] [facility] [address] [id number] [place] [address] Dec, [facility] [place] [facility] [address] [id number] [place] [address] Dec, [facility] [place] [facility] [address] [id number] [place] [address] Dec, [facility] [place] [facility] [address] [id number] [place] [address] Dec, [facility] [place] [facility] [address] [id number] [place] [address] Dec, [facility] [place] [facility] [address] [id number] [place] [address]- [address] Dec, [facility] [place] [facility] [address] [id number] [place] [address] Dec, [facility] [place] [facility] [address] [id number] [place] [address] Dec, [facility] [place] [facility] [address] [id number] [place] [address] Dec, [facility] [place] [facility] [address] [id number] [place] [address]- [address] Dec, [facility] [place] [facility] [address] [id number] [place] [address] Dec, [facility] [place] [facility] [address] [id number] [place] [address]- [address] 06 Dec, 2011 [facility] [place] [facility] [address] [id number] [place] [address]- [address] 05 Dec, 2011 [facility] [place] [facility] [address] [id number] [place] [address]- [address] Nov, [facility] [place] [facility] [address] [id number] [place] [address]- [address] 14 Nov, 2011 [facility] [place] [facility] [address] [id number] [place] [address]- [address]90 Nov, [facility] [place] [facility] [address] [id number] [place] [address]- [address] Nov, [facility] [place] [facility] [address] [id number] [place] [address]- [address] Nov, [facility] [place] [facility] [address] [id number] [place] [address]- [address] Nov, [facility] [place] [facility] [address] [id number] [place] [address]- 79[address] October, [facility] [place] [facility] [address] [id number] [place] [address] October, [facility] [place] [facility] [address] [id number] [place] [address]- [address] October, [facility] [place] [facility] [address] [id number] [place] [address] October, [facility] [place] [facility] [address] [id number] [place] [address]- [address] 19 Sep, 2011 [facility] [place] [facility] [address] [id number] [place] [address]- [address] 17 Sep, 2011 [facility] [place] [facility] [address] [id number] [place] [address]- [address]20 13 Sep, 2011 [facility] [place] [facility] [address] [id number] [place] [address]- 609[address] 09 Sep, 2011 [facility] [place] [facility] [address] [id number] [place] [address]- [address] 03 Sep, 2011 [facility] [address] [facility] [id number] [place] [address]- [address] Aug, [facility] [address] [id number] [place] [address]- [address] Aug, [facility] [address] [facility] [id number] [place] [address]- 1828 Aug, [facility] [address] [id number] [place] [address]- [address] 20 Aug, 2011 [facility] [facility] [address] [id number] [place] [address] Aug, [facility] [address] [facility] [id number] [place] [address] Aug, [facility] [address] [facility] [id number] [place] [address] Aug, [facility] [address] [facility] [id number] [place] [address] 16 Jul, 2011 [facility] [address] [facility] [id number] [place] [address] 16 Jul, 2011 [facility] [address] [facility] [id number] [place] [address] 15 Jul, 2011 [facility] [address] [facility] [id number], [place] [address] 15 Jul, 2011 [facility] [address] [facility] [id number], [place] [address] 24 Jun, 2011 [facility] and [address] [id number] Jun, [facility] [address] [facility] [id number], [place] [address] Jun, [facility] [address] [facility] [id number], [place] [address] Jun, [facility] [address] [id number] [place] [address] Jun, [facility] [address] [id number] [place] [address] Jun, [facility] [address] [id number] [place] [address] Jun, [facility] [address] [id number] [place] [address] Jun, [facility] [address] [id number] [place] [address] May, [facility] [address] [id number] [place] [address] May, [facility] [address] [id number] [place] [address] May, [facility] [address] [id number] [place] [address] May, [facility] [address] [id number] [place] [address] May, [facility] [address] [id number] [place] [address] May, [facility] [address] [id number] [place] [address] May, [facility] [address] [id number] [place] [address] Apr, [facility] [place] [facility] [address] [id number] [place] [address] Apr, [facility] [place] [facility] [address] [id number] [place] [address] Apr, [facility] [place] [facility] [address] [id number] [place] [address] Mar, [facility] [place] [facility] [address] [id number] [place] [address] 20 Mar, 2011 [facility] [place] [facility] [address] [id number] [place] [address] 14 Mar, 2011 [facility] [place] [facility] [address] [id number] [place] [address] 11 Mar, 2011 [facility] [place] [facility] [address] [id number] [place] [address] 10 Mar, 2011 [facility] [place] [facility] [address] [id number] [place] [address] 10 Mar, 2011 [facility] [place] [facility] [address] [id number] [place] [address] 10 Mar, 2011 [facility] [place] [facility] [address] [id number] [place] [address] Jan, [facility] [place] [facility] [address] [id number] [place] [address] 27 May, 2010 [facility] [place] [facility] [address] [id number] [place] [address] May, [facility] [place] [facility] [address] [id number] [place] [address] May, [facility] [place] [facility] [address] [id number] [place] [address] May, [facility] [place] [facility] [address] [id number] [place] [address] May, [facility] [place] [facility] [address] [id number] [place] [address] 06 May, 2010 [facility] [place] [facility] [address] [id number] [place] [address] 25[address] 29 Apr, 2010 [facility] [place] [facility] [address] [id number] [place] [address] Apr, [facility] [place] [facility] [address] [id number] [place] [address] 19 Apr, 2010 [facility] [place] [facility] [id number] [address] Apr, [facility] [address] [facility] [id number], [place] [address] Apr, [facility] [address] [id number], [place] [address] Apr, [facility] [id number], [place] [address] Apr, [facility] [address] [facility] [id number], [place] [address] Apr, [facility] [id number] [place] [address] Apr, [facility] [address] [id number], [place] [address] Apr, [facility] [id number] [place] [address] Mar, [facility] [id number], [place] [address] Mar, [facility] [id number], [place] [address] Mar, [facility] [id number], [place] [address] Mar, [facility] [id number], [place] [address] Mar, [facility] [id number], [place] [address] Dec, [facility] [id number], [place] [address] Nov, IMMUNIZATIONS No Known Immunizations SOCIAL HISTORY Never Assessed REASON FOR VISIT intake PLAN OF CARE Activity Details Follow Up 2 Weeks Reason: VITAL SIGNS MEDICATIONS Medication Instructions Dosage Frequency Start Date End Date Duration Status Jantoven 1 MG TAKE 1&1/2 TABLET BY MOUTH EVERY OTHER DAY ALTERNATING WITH WITH 2 MG DOSE. 29 Active MiraLax Orally twice a day 17 GM 12h Active Melatonin 5 MG Orally at bedtime 1 tablet 30 days Active Vitamin D (Ergocalciferol) 17975 UNIT Orally 2 times a day every 7 days 1 capsule Active Citalopram Hydrobromide 10 MG Orally Once a day 1 tablet 24h 30 days Active Restasis 0.05 % 1 DROP EACH EYE TWICE DAILY 30 Active Sodium Bicarbonate 650 MG Orally Once a day 1 tablet 24h Active Refresh Tears 0.5 % 1 drop into affected eye as needed Active Ibuprofen 200 mg Orally every 6 hours as needed for headache 2 tablets Active Nitro-Dur 0.2 MG/HR Transdermal Once a day 1 patch to skin remove after 12 hours 24h Active Gabapentin 400 MG TAKE 1 CAPSULE BY MOUTH AT BEDTIME 30 Active Hydrocortisone 2.5 % Externally every 24 hours as needed for dry skin 1 application to affected area Active Zofran ODT 4 mg Orally every 8 hrs 1 tablet on the tongue and allow to dissolve 8h Active Lamotrigine 100 MG TAKE 1 TABLET BY MOUTH TWICE DAILY 30 Active Folic Acid 1 MG TAKE 1 TABLET BY MOUTH EVERY DAY 30 Active Vitamin B-12 1000 MCG/ML Injection every 14 days 1 ml Active Fexofenadine HCl 180 MG Orally Once a day 1 tablet 24h Active Fioricet 50-300-40 MG Orally every 6 hrs prn 1 capsule as needed Active Cephalexin 500 mg Orally 2 times a day 1 capsule 12h Active Fluticasone Propionate 50 MCG/ACT INSTILL 1 SPRAY IN EACH NOSTRIL TWICE DAILY 30 Active Lipitor 40 mg Orally Once a day 1 tablet 24h Active Metoprolol Tartrate 25 MG TAKE 1 TABLET BY MOUTH TWICE DAILY 30 Active Refresh Liquigel 1 % Ophthalmic 4 times a day 1 drop into affected eye as needed 6h Active Topiramate 100 MG TAKE 1 TABLET BY MOUTH TWICE DAILY 30 Active Omeprazole 20 mg Orally every 4 hours as needed prn pain 1 capsule Active Clorazepate Dipotassium 3.75 MG Orally Twice a day 1` tablets 12h 28 Active Tussin Cough DM 100-10 MG/5ML Orally every 6 hrs as needed for cough 10 ml as needed Active Acetaminophen 650 MG Orally every 6 hrs 1 tablet as needed 6h Active Coumadin 1 MG Orally Alternate 1 mg and 1.5 mg every other day .... Active Phenytoin Sodium Extended 100 mg 1 capsule in AM and 1 1/2 tabs in PM Sep, Active Fentanyl 75 MCG/HR Transdermal every 72 hours 1 patch to skin Aug, 30 days Active Bisacodyl 10 mg Rectal Once a day prn 1 suppository as needed Active RESULTS No Results PROCEDURES Procedure Date Ordered Result Body Site Psych diagnostic evaluation, established patient October 10, 2017 INSTRUCTIONS MEDICATIONS ADMINISTERED No Known Medications [...] surgery and skin graft, cholecysectomy Hospitalization History [facility] 12/2016 Hospitalization History [facility] 08/2017
--- OUTSIDE RECORDS SUMMARY | 2018-02-04 13:09 | XMS REPORT ---
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 Name Role Phone IRENE PATEL Unavailable PROBLEMS Type Condition ICD9-CM Code OEQ49-XU Code Onset Dates Condition Status SNOMED Code Problem Anemia, unspecified type D64.9 Active 049413979 Problem Personality disorder F60.9 Active 27158367 Problem Factitious disorder imposed on self, recurrent episode F68.10 Active 91238102 Problem Ventral hernia without obstruction or gangrene K43.9 Active 627234905 Problem Allergic state, subsequent encounter T78.40XD Active 611268249 Problem Anxiety F41.9 Active 98531439 Problem Age-related osteoporosis without current pathological fracture M81.0 Active 80030353 Problem Unspecified psychosis not due to a substance or known physiological condition F29 Active 04610033 Problem Iron deficiency anemia, unspecified iron deficiency anemia type D50.9 Active 26545842 Problem History of CVA with residual deficit I69.30 Active 580208884 Problem Seizure disorder G40.909 Active 001257550 Problem Perennial allergic rhinitis, unspecified allergic rhinitis trigger J30.89 Active 207948422 Problem Chronic kidney disease, unspecified stage N18.9 Active 649402030 Problem Back pain M54.9 Active 161166786 Problem Gastroesophageal reflux disease without esophagitis K21.9 Active 793731549 Problem Insomnia, unspecified type G47.00 Active 658416920 Problem History of colon polyps Z86.010 Active 392915013 ALLERGIES No Information ENCOUNTERS Encounter Location Date Diagnosis [facility] [id number] [address] Jan, [facility] [id number] [address] Jan, [facility] [id number] [place] [address] 04048- 1575 Dec, Back pain M54.9 ; Seizure disorder G40.909 ; Ventral hernia without obstruction or gangrene K43.9 and History of CVA with residual deficit I69.30 [facility] [id number] [place] [address] 33080- 1190 Dec, Unspecified psychosis not due to a substance or known physiological condition F29 ; Personality disorder F60.9 and Factitious disorder imposed on self, recurrent episode F68.10 [facility] [id number] [place] [address] 65338- 7615 Dec, [facility] [id number] [place] [address] 04094- 3773 Dec, Back pain M54.9 [facility] [id number] [place] [address] 76067- 6373 Dec, Factitious disorder imposed on self, recurrent episode F68.10 ; Personality disorder F60.9 ; Insomnia, unspecified type G47.00 and Anxiety F41.9 [facility] [id number] [place] [address] 26681- 9334 Nov, Unspecified psychosis not due to a substance or known physiological condition F29 ; Personality disorder F60.9 and Factitious disorder imposed on self, recurrent episode F68.10 [facility] [id number] [place] [address] 85202- 7536 Nov, Back pain M54.9 [facility] [id number] [place] [address] 75264- 0981 Nov, Unspecified psychosis not due to a substance or known physiological condition F29 ; Personality disorder F60.9 and Factitious disorder imposed on self, recurrent episode F68.10 [facility] [facility] [id number] [place] [address] 02238- 0089 October, [facility] [id number] [place] [address] 25593- 2689 October, [facility] [id number] [place] [address] 27733- 1942 October, Unspecified psychosis not due to a substance or known physiological condition F29 ; Personality disorder F60.9 and Factitious disorder imposed on self, recurrent episode F68.10 [facility] [address] [address] October, Back pain M54.9 [facility] [id number] [place] [address] 39424- 6662 October, Seizure disorder G40.909 ; Back pain M54.9 and Allergic state, subsequent encounter T78.40XD [facility] [id number] [place] [address] 78595- 2043 October, [facility] [id number] [place] [address] 78493- 7845 Sep, Back pain M54.9 [facility] [id number] [place] [address] 23689- 9259 Sep, Unspecified psychosis not due to a substance or known physiological condition F29 ; Personality disorder F60.9 and Factitious disorder imposed on self, recurrent episode F68.10 [facility] [address] [address] 3729 Sep, [facility] [address], [place] [address] 4844 Sep, [facility] [id number] [place] [address] 25473- 2660 Sep, [facility] [id number] [place] [address] 83851- 2749 Sep, [facility] [id number] [address] 1546 Aug, [facility] [id number] [place] [address] 39684- 9657 Aug, Back pain M54.9 [facility] [address] [address] 0688 Aug, Factitious disorder imposed on self, recurrent episode F68.10 ; Personality disorder F60.9 ; Insomnia, unspecified type G47.00 and Anxiety F41.9 [facility] [address] [address] Aug, Back pain M54.9 ; Iron deficiency anemia, unspecified iron deficiency anemia type D50.9 ; Chronic kidney disease, unspecified stage N18.9 and Breast cancer screening Z12.31 [facility] [id number] [place] [address] [id number] Jul, Back pain M54.9 [facility] [id number] [place] [address] [id number] Jul, [facility] [id number] [place] [address] [id number] Jul, [facility] [id number] [place] [address] [id number] Jun, Back pain M54.9 [facility] [id number] [place] [address] [id number] Jun, [facility] [id number] [place] [address] [id number] Jun, Back pain M54.9 [facility] [id number] [place] [address] 63769- 9389 Jun, Back pain M54.9 ; Seizure disorder G40.909 and Age-related osteoporosis without current pathological fracture M81.0 [facility] [id number] [place] [address] [id number] May, [facility] [address] [address]- 8962 May, Back pain M54.9 [facility] [id number] [place] [address] 76728- 5117 Apr, Back pain M54.9 ; Encounter for immunization Z23 ; Gastroesophageal reflux disease without esophagitis K21.9 ; Age-related osteoporosis without current pathological fracture M81.0 and Chronic pruritus L29.9 [facility] [address], [place] [address] 5271 16 Apr, 2017 History of CVA with residual deficit I69.30 [facility] [id number] [place] [address] 26819- 8047 Apr, Factitious disorder imposed on self, recurrent episode F68.10 and Personality disorder F60.9 [facility] [id number] [place] [address] [id number] Apr, Back pain M54.9 [facility] [id number] [place] [address] 38512- 8978 Mar, Factitious disorder imposed on self, recurrent episode F68.10 [facility] [id number] [place] [address] 81247- 3998 Mar, [facility] [id number] [place] [address] [id number] Mar, [facility] [id number] [place] [address] [id number] Mar, Back pain M54.9 [facility] [id number] [place] [address] 63300- 2875 05 Mar, 2017 Back pain M54.9 ; Seizure disorder G40.909 and Age-related osteoporosis without current pathological fracture M81.0 [facility] [id number] [place] [address] 20966- 1399 Feb, History of CVA with residual deficit I69.30 [facility] [id number] [place] [address] 33188- 2067 Feb, Factitious disorder imposed on self, recurrent episode F68.10 and Personality disorder F60.9 [facility] [id number] [address]- 4189 15 Feb, 2017 Back pain M54.9 [facility] [address] [address]- 7933 Feb, [facility] [address] [address]- 7923 Jan, [facility] [address] [place] [id number] Jan, Age- related osteoporosis without current pathological fracture M81.0 and Allergic state, subsequent encounter T78.40XD [facility] [address] [address]- 8352 Jan, Factitious disorder imposed on self, recurrent episode F68.10 and Personality disorder F60.9 [facility] [address], [place] [address]- 4943 Dec, Back pain M54.9 [facility] [id number] [place] [address] 49715- 3201 Dec, Personality disorder F60.9 and Factitious disorder imposed on self, recurrent episode F68.10 [facility] [id number] [place] [address] [id number] Dec, Back pain M54.9 [facility] [id number] [place] [address] [id number] Dec, [facility] [id number] [place] [address] [id number] Dec, [facility] [address] [address]- 9065 Dec, [facility] [id number] [place] [address] 67564- 4612 Nov, [facility] [address] [address]- 6485 Nov, Back pain M54.9 ; Anemia, unspecified type D64.9 and History of colon polyps Z86.010 [facility] [address] [facility] [id number] [address]- 9874 Nov, Back pain M54.9 [facility] [id number] [id number] October, Back pain M54.9 [facility] [address] [id number] October, Back pain M54.9 and Gastroesophageal reflux disease without esophagitis K21.9 [facility] [address] [id number] [id number] Sep, [facility] [address] [facility] [id number] [address]- 2579 Sep, [facility] [id number] [place] [address] 73878- 6287 Sep, [facility] [id number] [place] [address] 46608- 9684 Sep, [facility] [id number] [address]- 2060 Sep, [facility] [id number] [place] [address] 82553- 6360 Sep, Seizure disorder G40.909 [facility] [id number] [address]- 2769 Sep, Back pain M54.9 [facility] [id number], [place] [address]- 6875 Sep, [facility] [address] [facility] [id number], [place] [address]- 2046 Aug, Back pain M54.9 [facility] [id number], [place] [address]- 3235 Aug, Seizure disorder G40.909 [facility] [address] [id number] [id number] Aug, [facility] [id number] [place] [address] [id number] 16 Aug, 2016 Back pain M54.9 [facility] [id number] [id number] 14 Aug, 2016 Back pain M54.9 [facility] [id number] [place] [address] [id number] 06 Aug, 2016 Back pain M54.9 [facility] [address] [place] [id number] Jul, Weakness R53.1 [facility] [id number] [place] [address] 86951- 1039 Jul, Seizure disorder G40.909 [facility] [id number] [place] [address] 39967- 5767 Jul, [facility] [id number] [place] [address] 74714- 2995 Jul, Breast cancer screening Z12.39 [facility] [id number] [place] [address] 56847- 8048 Jul, [facility] [id number] [place] [address] 40317- 0132 Jul, [facility] [id number] [place] [address] 12306- 7527 Jul, [facility] [id number] [place] [address] 21210- 5308 Jul, Seizure disorder G40.909 ; Fatigue, unspecified type R53.83 ; Perennial allergic rhinitis, unspecified allergic rhinitis trigger J30.89 and Chronic kidney disease, unspecified stage N18.9 [facility] [id number] [place] [address] 17205- 7082 06 Jul, 2016 [facility] [id number] [place] [address] 70026- 9405 Jul, Seizure disorder G40.909 [facility] [id number] [place] [address] 32534- 7364 Jun, [facility] [address] [address]- 7425 Jun, Counts include 234 beds at the [facility] [address] [place] [id number] Jun, Perennial allergic rhinitis, unspecified allergic rhinitis trigger J30.89 [facility] [id number] [place] [address] [id number] Jun, [facility] [id number] [place] [address] 71406- 5162 Jun, Seizure disorder G40.909 [facility] [id number] [place] [address] [id number] Jun, [facility] [id number] [place] [address] [id number] May, [facility] [id number] [place] [address] 34662- 4911 May, [facility] [id number] [place] [address] 31708- 5922 May, [facility] [id number] [place] [address] 88020- 8182 May, [facility] [id number] [place] [address] 13857- 8850 May, History of CVA with residual deficit I69.30 [facility] [address], [place] [address]- 3092 May, [facility] [address] [address]- 8949 May, [facility] [id number] [place] [address] 47019- 0253 May, [facility] [address], [place] [address]- 1279 May, Seizure disorder G40.909 [facility] [id number], [place] [address]- 7968 May, [facility] [address] [place] [address] May, Back pain M54.9 and Seizure disorder G40.909 [facility] [address] [facility] [id number], [place] [address]- 4043 Apr, [facility] [id number] [place] [address] 55469- 4119 Apr, Back pain M54.9 [facility] [id number] [place] [address] 53076- 6575 Mar, [facility] [address] [place] [address] Mar, Insomnia, unspecified type G47.00 [facility] [address] [address]- 3460 Mar, [facility] [id number] [place] [address] 42778- 1977 Feb, [facility] [id number] [place] [address] 57489- 0996 Feb, [facility] [id number] [place] [address] 15096- 0869 Feb, [facility] [id number] [place] [address] 63133- 7277 Jan, [facility] [id number] [place] [address] 20226- 1428 Jan, [facility] [address] [place] [address] Jan, Seizure disorder G40.909 and Back pain M54.9 [facility] [address], [place] [address]- 1058 Dec, [facility] [address] [address]- 6651 Dec, [facility] [address], [place] [address]- 8327 Dec, [facility] [id number] [place] [address] 91598- 0841 Nov, [facility] [id number] [place] [address] 91605- 9687 Nov, [facility] [id number] [place] [address] 33804- 7384 Nov, Back pain M54.9 [facility] [id number] [place] [address] 91305- 5603 October, [facility] [id number] [place] [address] 68713- 0021 October, Back pain M54.9 [facility] [id number] [place] [address] 98955- 2913 October, Seizure disorder G40.909 and B12 deficiency E53.8 [facility] [id number] [place] [address] 19380- 5272 Sep, History of CVA with residual deficit I69.30 [facility] [id number] [place] [address] 73952- 0175 Sep, [facility] [id number] [place] [address] 19552- 5265 Sep, [facility] [id number] [place] [address] 40948- 9623 Sep, Back pain M54.9 [facility] [id number] [place] [address] 98039- 8824 Sep, Seizure disorder G40.909 [facility] [id number] [place] [address] 75771- 4046 Aug, Back pain M54.9 [facility] [id number] [place] [address] 36698- 3536 Aug, Seizure disorder G40.909 [facility] [address] [address]- 6964 16 Aug, 2015 Back pain M54.9 [facility] [id number] [place] [address] 86257 2546 14 Aug, 2015 Heart failure, unspecified I50.9 [facility] [id number] [place] [address] 89872- 0536 Aug, Medication monitoring encounter Z51.81 [facility] [id number] [place] [address] 66154 2546 Jul, [facility] [id number] [place] [address] 37798- 9826 09 Jul, 2015 Seizure disorder G40.909 [facility] [id number] [place] [address] 35799- 3746 Jul, Back pain M54.9 [facility] [id number] [place] [address] 97889- 8458 Jun, [facility] [id number] [place] [address] 31584- 8928 Jun, [facility] [id number] [place] [address] 06185- 1282 Jun, Mental status change R41.82 ; History of CVA with residual deficit I69.30 ; Back pain M54.9 and Seizure disorder G40.909 [facility] [address] [address]- 1466 Jun, [facility] [id number] [place] [address] 80741- 0256 May, [facility] [id number] [place] [address] 32628- 2526 Apr, [facility] [address] [address]- 0861 Apr, Medication monitoring encounter Z51.81 [facility] [address] [id number] [place] [address]- 1057 Mar, Vomiting R11.10 [facility] [address] [id number] [place] [address]- 5536 Mar, [facility] [address] [id number] [place] [address]- 9106 Feb, [facility] [address] [id number] [place] [address]- 3464 Feb, UTI (urinary tract infection) 599.0 [facility] [address] [id number] [place] [address]- 0556 Jan, [facility] [address] [id number] [place] [address]- 1276 Jan, [facility] [address] [id number] [place] [address]- 1596 Jan, [facility] [address] [id number] [place] [address]- 9553 Dec, [facility] [address] [id number] [place] [address]- 9941 Dec, [facility] [address] [id number] [place] [address]- 4706 Dec, [facility] [address] [id number] [place] [address]- 2546 Dec, [facility] [address] [id number] [place] [address]- 8976 Nov, UNKNOWN Nov, [facility] [address] [id number] [place] [address]- 2546 October, [facility] [address] [id number] [place] [address] Sep, [facility] [address] [id number] [place] [address] Sep, [facility] [place] [facility] [address] [id number] [place] [address] Aug, [facility] [place] [facility] [address] [id number] [place] [address] Aug, [facility] [place] [facility] [address] [id number] [place] [address] Jul, [facility] [place] [facility] [address] [id number] [place] [address] Jul, [facility] [place] [facility] [address] [id number] [place] [address] Jul, [facility] [place] [facility] [address] [id number] [place] [address] Jul, [facility] [place] [facility] [address] [id number] [place] [address] Jul, [facility] [place] [facility] [address] [id number] [place] [address] Jun, [facility] [place] [facility] [address] [id number] [place] [address] Jun, [facility] [place] [facility] [address] [id number] [place] [address] Jun, [facility] [place] [facility] [address] [id number], [place] [address] Jun, [facility] [place] [facility] [address] [id number], [place] [address] Jun, [facility] [place] [facility] [address] [id number] [place] [address] Jun, [facility] [place] [facility] [address] [id number], [place] [address] Jun, [facility] [place] [facility] [address] [id number] [place] [address] Jun, [facility] [place] [facility] [address] [id number] [place] [address] 14 Jun, 2014 [facility] [address] [id number] [place] [address] Jun, [facility] [place] [facility] [address] [id number] [place] [address] Jun, [facility] [place] [facility] [address] [id number] [place] [address] Jun, [facility] [place] [facility] [address] [id number] [place] [address] Jun, [facility] [place] [facility] [address] [id number] [place] [address] Jun, [facility] [place] [facility] [address] [id number] [place] [address] Jun, [facility] [place] [facility] [address] [id number] [place] [address] Jun, [facility] [place] [facility] [address] [id number] [place] [address] Jun, [facility] [place] [facility] [address] [id number] [place] [address] Jun, [facility] [facility] [address] [id number] [place] [address] May, [facility] [place] [facility] [address] [id number] [place] [address] 0120 May, [facility] [place] [facility] [address] [id number] [place] [address]- 0873 30 May, 2014 [facility] [place] [facility] [address] [id number] [place] [address] 4776 May, [facility] [place] [facility] [address] [id number] [place] [address] 0238 May, [facility] [place] [facility] [address] [id number] [place] [address]- 0688 16 May, 2014 [facility] [place] [facility] [address] [id number] [place] [address]- 6432 16 May, 2014 [facility] [place] [address] [id number] [place] [address] 2598 May, [facility] [place] [facility] [address] [id number] [place] [address] 1743 May, [facility] [address] [facility] [place] [address] May, [facility] [address] [id number] [place] [address] 6218 May, [facility] [address] [id number] [place] [address]- 6945 May, [facility] [place] [facility] [address] [id number] [place] [address]- 1126 May, [facility] [place] [facility] [address] [id number] [place] [address]- 9154 Apr, [facility] [address] [id number] [place] [address] 4913 Apr, [facility] [address] [id number] [place] [address]- 2393 Apr, [facility] [address] [id number] [place] [address]- 8545 Apr, [facility] [place] [facility] [address] [id number] [place] [address]- 8587 Apr, [facility] [address] [id number] [place] [address]- 2834 Apr, [facility] [place] [facility] [address] [id number] [place] [address]- 3155 Mar, [facility] [place] [facility] [address] [id number] [place] [address]- 3247 Mar, [facility] [facility] [address] [id number] [place] [address] Mar, [facility] [address] [id number] [place] [address]- 9347 Mar, [facility] [address] [id number] [place] [address]- 7629 Mar, [facility] [address] [id number] [place] [address]- 0983 Mar, [facility] [place] [address] [id number] [place] [address]- 9952 Feb, [facility] [place] [facility] [address] [id number] [place] [address]- 2053 Feb, [facility] [address] [id number] [place] [address]- 0885 Feb, [facility] [address] [id number] [place] [address]- 7271 Feb, [facility] [address] [id number] [place] [address]- 5848 Feb, [facility] [address] [id number] [place] [address]- 9971 Feb, [facility] [address] [id number] [place] [address]- 6127 Feb, [facility] [address] [id number] [place] [address]- 7385 Feb, [facility] [address] [id number] [address] 8218 Feb, [facility] [address] [id number] [place] [address]- 2541 Feb, [facility] [address] [place] [id number] Feb, [facility] [address] [id number], [place] [address] 6564 Feb, [facility] [address] [id number], [place] [address] 4916 Jan, [facility] [address] [id number] [place] [address]- 9710 Jan, [facility] [address] [id number] [place] [address]- 7893 Dec, [facility] [address] [id number] [place] [address]- 9281 Dec, [facility] [address] [id number] [place] [address]- 9908 Dec, [facility] [address] [id number] [place] [address]- 2188 Dec, [facility] [address] [id number] [place] [address]- 6240 Dec, [facility] [address] [id number] [place] [address] 1950 Dec, [facility] [address] [id number] [place] [address]- 0164 Dec, [facility] [address] [id number] [place] [address]- 3035 Dec, [facility] [address] [id number] [place] [address]- 9924 Dec, [facility] [address] [id number] [place] [address]- 5214 Dec, [facility] [address] [id number] [place] [address]- 4113 Nov, [facility] [address] [id number] [place] [address]- 6503 Nov, [facility] [address] [id number] [place] [address]- 8666 Nov, [facility] [address] [id number] [place] [address]- 2404 Nov, [facility] [address] [id number] [place] [address]- 0682 Nov, [facility] [address] [id number] [place] [address]- 3418 Nov, [facility] [address] [id number] [place] [address] 9631 Nov, [facility] [address] [id number] [place] [address]- 4142 Nov, [facility] [address] [id number] [place] [address]- 7564 Nov, [facility] [address] [id number] [place] [address]- 7230 Nov, [facility] [address] [id number] [place] [address]- 1356 Nov, [facility] [address] [id number] [place] [address]- 3821 Nov, [facility] [address] [id number] [place] [address]- 4913 Nov, [facility] [address] [id number] [place] [address]- 2983 Nov, [facility] [address] [id number] [place] [address] 9759 October, [facility] [address] [id number] [place] [address]- 5703 October, [facility] [address] [id number] [place] [address]- 7816 October, [facility] [address] [id number] [place] [address]- 7502 October, [facility] [address] [id number] [place] [address]- 2696 October, [facility] [address] [id number] [place] [address]- 6811 October, [facility] [address] [id number] [place] [address]- 5295 October, [facility] [address] [id number] [place] [address]- 4640 October, [facility] [address] [id number] [place] [address]- 4227 October, [facility] [address] [id number] [place] [address]- 8350 October, [facility] [address] [id number] [place] [address]- 4833 Sep, [facility] [address] [id number] [place] [address]- 9624 Sep, [facility] [address] [id number] [place] [address]- 3571 Sep, [facility] [address] [id number] [place] [address]- 8856 Sep, [facility] [address] [id number] [place] [address]- 0426 Sep, [facility] [address] [id number] [place] [address]- 6956 Sep, [facility] [address] [id number] [place] [address]- 7687 Sep, [facility] [address] [id number] [place] [address]- 3042 Sep, [facility] [address] [id number] [place] [address]- 2693 Sep, [facility] [address] [id number] [place] [address]- 6267 Sep, [facility] [address] [id number] [place] [address]- 1968 Aug, [facility] [address] [id number] [place] [address]- 4129 Aug, [facility] [address] [id number] [place] [address]- 2199 Aug, [facility] [address] [id number] [place] [address]- 1230 Aug, [facility] [address] [facility] [id number] [place] [address]- 4206 Aug, [facility] [address] [id number] [place] [address]- 7085 Aug, [facility] [address] [id number] [place] [address]- 8686 Aug, [facility] [address] [facility] [id number] [place] [address]- 5996 Aug, [facility] [address] [facility] [id number] [place] [address]- 5803 Aug, [facility] [address] [facility] [id number] [place] [address]- 1224 Jul, [facility] [address] [facility] [id number] [place] [address]- 0543 Jul, [facility] [address] [facility] [id number] [place] [address]- 1064 Jul, [facility] [address] [facility] [id number] [place] [address]- 5195 Jul, [facility] [address] [facility] [id number] [place] [address]- 5842 Jul, [facility] [address] [facility] [id number] [place] [address]- 2681 Jul, [facility] [address] [facility] [id number] [place] [address]- 9421 Jul, [facility] [address] [facility] [id number] [place] [address]- 1000 Jul, [facility] [address] [id number] [place] [address]- 1923 Jul, [facility] [address] [id number] [place] [address]- 7066 Jul, [facility] [address] [id number] [place] [address]- 3733 Jul, [facility] [address] [id number] [place] [address]- 2808 Jul, [facility] [address] [id number] [place] [address]- 8626 Jul, [facility] [address] [id number] [place] [address]- 5441 Jul, [facility] [address] [id number] [place] [address]- 9751 Jul, [facility] [address] [id number] [place] [address]- 8643 Jul, [facility] [address] [id number] [place] [address]- 4190 Jun, [facility] [address] [id number] [place] [address]- 5327 Jun, [facility] [address] [id number] [place] [address]- 6333 Jun, [facility] [address] [id number] [place] [address]- 3300 Jun, [facility] [address] [id number] [place] [address]- 1104 Jun, [facility] [address] [id number] [place] [address]- 8256 Jun, [facility] [address] [id number] [place] [address]- 1407 May, [facility] [address] [id number] [place] [address]- 3121 May, [facility] [address] [id number] [place] [address]- 2974 May, [facility] [address] [id number] [place] [address]- 4651 May, [facility] [address] [id number] [place] [address]- 2238 Apr, [facility] [address] [id number] [place] [address]- 1800 Apr, [facility] [address] [id number] [place] [address]- 1327 Apr, [facility] [address] [id number] [place] [address]- 4705 Apr, [facility] [address] [id number] [place] [address]- 1496 Apr, [facility] [address] [id number] [place] [address]- 9136 Apr, [facility] [address] [facility] [id number] [place] [address]- 7153 Apr, [facility] [address] [facility] [id number] [place] [address]- 9627 Apr, [facility] [address] [id number] [place] [address]- 9767 Apr, [facility] [address] [id number] [place] [address]- 0129 Apr, [facility] [address] [id number] [place] [address]- 6081 Apr, [facility] [address] [facility] [id number] [place] [address]- 1527 Apr, [facility] [address] [id number] [place] [address]- 0728 Mar, [facility] [address] [id number] [place] [address]- 5494 28 Mar, 2013 [facility] [address] [id number] [place] [address]- 9624 16 Mar, 2013 [facility] [facility] [address] [id number] [place] [address]- 5956 16 Mar, 2013 [facility] [facility] [address] [id number] [place] [address]- 8848 15 Mar, 2013 [facility] [place] [address] [id number] [place] [address]- 5375 15 Mar, 2013 [facility] [place] [facility] [address] [id number] [place] [address]- 1350 27 Feb, 2013 [facility] [place] [facility] [address] [id number] [place] [address]- 6912 25 Feb, 2013 [facility] [address] [id number] [place] [address]- 5206 25 Feb, 2012 [facility] [facility] [address] [id number] [place] [address]- 4748 23 Feb, 2013 [facility] [place] [facility] [address] [id number], [place] [address]- 1868 17 Feb, 2013 [facility] [place] [facility] [address] [id number], [place] [address]- 5415 10 Feb, 2013 [facility] [facility] [address] [id number], [place] [address]- 0256 04 Feb, 2013 [facility] [place] [facility] [address] [id number] [place] [address]- 6457 30 Jan, 2013 [facility] [place] [facility] [address] [id number], [place] [address]- 9326 20 Jan, 2013 [facility] [place] [facility] [address] [id number], [place] [address]- 3135 15 Jan, 2013 [facility] [place] [facility] [address] [id number], [place] [address]- 6376 Jan, [facility] [place] [facility] [address] [id number] [place] [address]- 4773 Jan, [facility] [place] [facility] [address] [id number] [place] [address]- 9816 Jan, [facility] [place] [facility] [address] [id number] [place] [address]- 3917 Jan, [facility] [place] [facility] [address] [id number] [place] [address]- 0590 Dec, [facility] [place] [facility] [address] [id number] [place] [address]- 0948 Dec, [facility] [place] [facility] [address] [id number] [place] [address]- 4324 Dec, [facility] [place] [facility] [address] [id number] [place] [address]- 5864 Dec, [facility] [place] [facility] [address] [id number] [place] [address]- 8948 Dec, [facility] [place] [facility] [address] [id number] [place] [address]- 1770 Dec, [facility] [place] [facility] [address] [id number] [place] [address]- 1018 Nov, [facility] [place] [facility] [address] [id number] [place] [address]- 3896 Nov, [facility] [place] [facility] [address] [id number] [place] [address]- 2348 Nov, [facility] [place] [facility] [address] [id number] [place] [address]- 9589 Nov, [facility] [place] [facility] [address] [id number] [place] [address]- 7157 October, [facility] [place] [facility] [address] [id number] [place] [address]- 7647 October, [facility] [place] [facility] [address] [id number] [place] [address]- 7126 October, [facility] [address] [id number] [place] [address]- 2845 October, [facility] [place] [facility] [address] [id number] [place] [address]- 3698 Sep, [facility] [address] [id number] [place] [address]- 4080 Sep, [facility] [address] [id number] [place] [address]- 3890 16 Sep, 2012 [facility] [address] [id number] [place] [address]- 7976 Sep, [facility] [address] [id number] [place] [address]- 9321 Sep, [facility] [address] [id number] [place] [address]- 6308 Sep, [facility] [address] [id number] [place] [address]- 8106 Sep, [facility] [address] [id number] [place] [address]- 2454 Sep, [facility] [address] [id number] [place] [address]- 7748 Aug, [facility] [facility] [address] [id number] [place] [address]- 6733 13 Aug, [address] [facility] [facility] [address] [id number] [place] [address]- 2990 05 Aug, 2012 [facility] [place] [facility] [address] [id number] [place] [address]- 8447 18 Jul, [address] [facility] [facility] [address] [id number] [place] [address]- 8316 08 Jul, 2012 [facility] [place] [facility] [address] [id number] [place] [address]- 5861 07 Jul, 2012 [facility] [place] [facility] [address] [id number] [place] [address]- 2105 Jul, [facility] [place] [facility] [address] [id number] [place] [address]- 5616 05 Jul, 2012 [facility] [place] [facility] [address] [id number] [place] [address]- 7259 Jun, [facility] [place] [facility] [address] [id number] [place] [address]- 2886 Jun, [facility] [place] [facility] [address] [id number] [place] [address]- 9198 Jun, [facility] [place] [facility] [address] [id number] [place] [address]32 May, [facility] [place] [facility] [address] [id number] [place] [address] May, [facility] [place] [facility] [address] [id number] [place] [address] May, [facility] [place] [facility] [address] [id number] [place] [address] May, [facility] [place] [facility] [address] [id number] [place] [address] May, [facility] [place] [facility] [address] [id number] [place] [address] May, [facility] [place] [facility] [address] [id number] [place] [address] May, [facility] [place] [facility] [address] [id number] [place] [address] Apr, [facility] [place] [facility] [address] [id number] [place] [address] Apr, [facility] [place] [facility] [address] [id number] [place] [address] Apr, [facility] [place] [facility] [address] [id number] [place] [address] Apr, [facility] [place] [facility] [address] [id number] [place] [address] Apr, [facility] [place] [facility] [address] [id number] [place] [address] Apr, [facility] [place] [facility] [address] [id number] [place] [address] Apr, [facility] [place] [facility] [address] [id number] [place] [address] Apr, [facility] [place] [facility] [address] [id number] [place] [address], [place] [address]- [address] Apr, [facility] [place] [facility] [address] [id number] [place] [address] Apr, [facility] [place] [facility] [address] [id number] [place] [address] Apr, [facility] [place] [facility] [address] [id number] [place] [address] Mar, [facility] [place] [facility] [address] [id number] [place] [address] Mar, [facility] [place] [facility] [address] [id number] [place] [address] Mar, [facility] [place] [facility] [address] [id number] [place] [address] 96[address] Mar, [facility] [place] [facility] [address] [id number] [place] [address] Mar, [facility] [place] [facility] [address] [id number] [place] [address]702 Mar, [facility] [place] [facility] [address] [id number] [place] [address] 9310 Mar, [facility] [place] [facility] [address] [id number] [place] [address] Mar, [facility] [place] [facility] [address] [id number] [place] [address] 16 Mar, 2012 [facility] [place] [facility] [address] [id number] [place] [address] 16 Mar, 2012 [facility] [place] [facility] [address] [id number] [place] [address] 57[address] 04 Mar, 2012 [facility] [place] [facility] [address] [id number] [place] [address] 2011 [facility] [place] [facility] [address] [id number] [place] [address] 27 Sep, 2011 [facility] [place] [facility] [address] [id number] [place] [address] 27 Feb, 2011 [facility] [place] [facility] [address] [id number] [place] [address] 3667 26 Feb, 2011 [facility] [place] [facility] [address] [id number] [place] [address] 8085 24 Feb, 2012 [facility] [place] [facility] [address] [id number] [place] [address]14 19 Feb, 2012 [facility] [place] [facility] [address] [id number], [place] [address] 18 Feb, 2012 [facility] [place] [facility] [address] [id number], [place] [address] 18 Feb, 2012 [facility] [place] [facility] [address] [id number], [place] [address] 18 Feb, 2012 [facility] [place] [facility] [address] [id number] [place] [address] 30 Jan, 2012 [facility] [place] [facility] [address] [id number], [place] [address] Jan, [facility] [place] [facility] [address] [facility] [id number], [place] [address] Jan, [facility] [place] [facility] [address] [id number], [place] [address] Jan, [facility] [place] [facility] [address] [id number] [place] [address]67 Dec, [facility] [place] [facility] [address] [id number] [place] [address] Dec, [facility] [place] [facility] [address] [id number] [place] [address] Dec, [facility] [place] [facility] [address] [id number] [place] [address]- [address] Dec, [facility] [place] [facility] [address] [id number] [place] [address]- [address]643 Dec, [facility] [place] [facility] [address] [id number] [place] [address]- 8585 Dec, [facility] [place] [facility] [address] [id number] [place] [address]- 1586 Dec, [facility] [place] [facility] [address] [id number] [place] [address]- [address] Dec, [facility] [place] [facility] [address] [id number] [place] [address]- [address] Dec, [facility] [place] [facility] [address] [id number] [place] [address] 1207 Dec, [facility] [place] [facility] [address] [id number] [place] [address]- 8261 Dec, [facility] [place] [facility] [address] [id number] [place] [address]- [address] Dec, [facility] [place] [facility] [address] [id number] [place] [address]- 2566 Dec, [facility] [place] [facility] [address] [id number] [place] [address]- 8725 Dec, [facility] [place] [facility] [address] [id number] [place] [address]- [address]26 Nov, [facility] [place] [facility] [address] [id number] [place] [address]- 9897 14 Nov, 2011 [facility] [place] [facility] [address] [id number] [place] [address]- 2550 11 Nov, 2011 [facility] [place] [facility] [address] [id number] [place] [address]- 2967 07 Nov, 2011 [facility] [place] [facility] [address] [id number] [place] [address]- 6882 07 Nov, 2011 [facility] [place] [facility] [address] [id number] [place] [address]- 6775 07 Nov, 2011 [facility] [place] [facility] [address] [id number] [place] [address]- 2753 30 Oct, 2011 [facility] [place] [facility] [address] [id number] [place] [address]61 October, [facility] [place] [facility] [address] [id number] [place] [address]- 8584 October, [facility] [place] [facility] [address] [id number] [place] [address]- 9074 October, [facility] [place] [facility] [address] [id number] [place] [address]- 2027 Sep, [facility] [place] [facility] [address] [id number] [place] [address]- 6656 17 Sep, 2011 [facility] [place] [facility] [address] [id number] [place] [address]- 9022 13 Sep, 2011 [facility] [place] [facility] [address] [id number] [place] [address]- 3987 09 Sep, 2011 [facility] [place] [facility] [address] [id number] [place] [address]- 8493 Sep, [facility] [place] [facility] [address] [id number] [place] [address]- 9612 Aug, [facility] [place] [facility] [address] [id number] [place] [address] 26 Aug, 2011 [facility] [address] [id number] [place] [address]- [address] Aug, [facility] [place] [facility] [address] [id number] [place] [address]- 3708 20 Aug, 2011 [facility] [address] [facility] [id number] [place] [address] 13 Aug, 2011 [facility] [place] [facility] [address] [id number] [place] [address] 02 Aug, 2011 [facility] [address] [id number] [place] [address] Aug, [facility] [address] [id number] [place] [address] 16 Jul, 2011 [facility] [address] [facility] [id number] [place] [address] 16 Jul, 2011 [facility] [address] [facility] [id number] [place] [address] 15 Jul, 2011 [facility] [address] [facility] [id number] [address] 15 Jul, 2011 [facility] [address] [facility] [id number] [address] 24 Jun, [address] [id number] Jun, [facility] [address] [facility] [id number] [address] 18 Jun, 2011 [facility] [place] [facility] [address] [facility] [id number] [address] Jun, [facility] [place] [facility] [address] [facility] [id number] [address] Jun, [facility] [place] [facility] [address] [facility] [id number] [address] Jun, [facility] [place] [facility] [address] [facility] [id number] [address] Jun, [facility] [place] [facility] [address] [id number] [place] [address] Jun, [facility] [place] [facility] [address] [id number] [place] [address] May, [facility] [place] [facility] [address] [facility] [id number] [place] [address] May, [facility] [place] [facility] [address] [id number] [place] [address] May, [facility] [place] [facility] [id number] [place] [address], [place] [address] May, [facility] [place] [facility] [address] [id number] [place] [address] May, [facility] [place] [facility] [id number] [place] [address], [place] [address] May, [facility] [place] [facility] [address] [id number] [place] [address] May, [facility] [place] [facility] [address] [id number] [place] [address] Apr, [facility] [place] [facility] [address] [facility] [id number] [place] [address]- 1144 Apr, [facility] [place] [facility] [address] [facility] [id number][place] [address] Apr, [facility] [place] [facility] [address] [id number], [place] [address] Mar, [facility] [place] [facility] [address] [id number] [place] [address] 20 Mar, 2011 [facility] [place] [facility] [address] [facility] [id number] [address] 14 Mar, 2011 [facility] [place] [facility] [address] [facility] [id number] [address] 11 Mar, 2011 [facility] [place] [facility] [address] [id number] [place] [address]763 10 Mar, 2011 [facility] [place] [facility] [address] [id number] [place] [address] 1126 10 Mar, 2011 [facility] [place] [facility] [address] [id number] [place] [address] 2546 10 Mar, 2011 [facility] [place] [facility] [address] [id number] [place] [address] 2546 11 Jan, 2011 [facility] [place] [facility] [address] [id number] [place] [address] 2547 27 May, 2010 [facility] [place] [facility] [address] [id number] [place] [address] 9416 21 May, 2010 [facility] [place] [facility] [address] [id number] [place] [address] 13 May, 2010 [facility] [place] [facility] [address] [id number] [place] [address] 13 May, 2010 [facility] [place] [facility] [address] [id number] [place] [address] 10 May, 2010 [facility] [place] [facility] [address] [id number] [place] [address]- 1067 06 May, 2010 [facility] [place] [facility] [address] [id number] [place] [address]- 5361 29 Apr, 2010 [facility] [place] [facility] [address] [id number] [place] [address] 9993 26 Apr, 2010 [facility] [place] [facility] [address] [id number] [place] [address] 254 19 Apr, 2010 [facility] [place] [facility] [address] [id number] [place] [address] 2546 18 Apr, 2010 [facility] [place] [facility] [address] [id number] [place] [address]46 15 Apr, 2010 [facility] [place] [facility] [address] [id number] [place] [address] Apr, [facility] [address] [id number] [address] Apr, [facility] [id number], [place] [address] Apr, [facility] [id number], [place] [address] Apr, [facility] [id number] [place] [address]- [address]65 Apr, [facility] [id number] [place] [address]- 6026 Mar, [facility] [id number] [place] [address]- [address]482 Mar, [facility] [id number] [place] [address]- [address]272 Mar, [facility] [id number] [place] [address]- 1690 Mar, [facility] [id number], [place] [address] Mar, [facility] [id number], [place] [address] Dec, [facility] [id number], [place] [address] Nov, IMMUNIZATIONS No Known Immunizations SOCIAL HISTORY Never Assessed REASON FOR VISIT decrease dilantin PLAN OF CARE VITAL SIGNS MEDICATIONS Medication Instructions Dosage Frequency Start Date End Date Duration Status Phenytoin Sodium Extended 100 mg 1 capsule in AM and 1 1/2 tabs in PM Sep, Active RESULTS No Results PROCEDURES No Known [...] surgery and skin graft, cholecysectomy Hospitalization History [facility] 12/2016 Hospitalization [facility] 08/2017
--- OUTSIDE RECORDS SUMMARY | 2018-02-04 13:10 | XMS REPORT ---
Author Author NAHOMY BETH Organization [facility] Address [address] [place] [address] Care Team Providers Care Tool Liaison Name Role Phone NAHOMY BETH Unavailable PROBLEMS Type Condition ICD9-CM Code NVN56-FE Code Onset Dates Condition Status SNOMED Code Problem Anemia, unspecified type D64.9 Active 804453033 Problem Personality disorder F60.9 Active 30592286 Problem Factitious disorder imposed on self, recurrent episode F68.10 Active 13821743 Problem Ventral hernia without obstruction or gangrene K43.9 Active 050784003 Problem Allergic state, subsequent encounter T78.40XD Active 872897707 Problem Anxiety F41.9 Active 35242008 Problem Age-related osteoporosis without current pathological fracture M81.0 Active 64917822 Problem Unspecified psychosis not due to a substance or known physiological condition F29 Active 90783654 Problem Iron deficiency anemia, unspecified iron deficiency anemia type D50.9 Active 18071402 Problem History of CVA with residual deficit I69.30 Active 308238368 Problem Seizure disorder G40.909 Active 007278306 Problem Perennial allergic rhinitis, unspecified allergic rhinitis trigger J30.89 Active 466505055 Problem Chronic kidney disease, unspecified stage N18.9 Active 405842577 Problem Back pain M54.9 Active 686960564 Problem Gastroesophageal reflux disease without esophagitis K21.9 Active 920843830 Problem Insomnia, unspecified type G47.00 Active 310999965 Problem History of colon polyps Z86.010 Active 031404691 ALLERGIES No Information ENCOUNTERS Encounter Location Date Diagnosis [facility] [id number] [address] Jan, [facility] [id number] [address] Jan, [facility] [id number] [place] [address] 41367- 0763 Dec, Back pain M54.9 ; Seizure disorder G40.909 ; Ventral hernia without obstruction or gangrene K43.9 and History of CVA with residual deficit I69.30 [facility] [id number] [place] [address] 06955- 2426 Dec, Unspecified psychosis not due to a substance or known physiological condition F29 ; Personality disorder F60.9 and Factitious disorder imposed on self, recurrent episode F68.10 [facility] [id number] [place] [address] 37931- 0434 Dec, [facility] [id number] [place] [address] 37196- 4814 Dec, Back pain M54.9 [facility] [id number] [place] [address] 12741- 6290 Dec, Factitious disorder imposed on self, recurrent episode F68.10 ; Personality disorder F60.9 ; Insomnia, unspecified type G47.00 and Anxiety F41.9 [facility] [id number] [place] [address] 93558- 3040 Nov, Unspecified psychosis not due to a substance or known physiological condition F29 ; Personality disorder F60.9 and Factitious disorder imposed on self, recurrent episode F68.10 [facility] [id number] [place] [address] 53304- 7766 Nov, Back pain M54.9 [facility] [id number] [place] [address] 45607- 2187 Nov, Unspecified psychosis not due to a substance or known physiological condition F29 ; Personality disorder F60.9 and Factitious disorder imposed on self, recurrent episode F68.10 [facility] [id number] [place] [address] 93137- 6954 October, [facility] [id number] [place] [address] 02479- 3798 October, [facility] [address], [place] [address] 2424 October, Unspecified psychosis not due to a substance or known physiological condition F29 ; Personality disorder F60.9 and Factitious disorder imposed on self, recurrent episode F68.10 [facility] [address], [place] [address] 5523 October, Back pain M54.9 [facility] [id number] [place] [address] 07964- 4086 October, Seizure disorder G40.909 ; Back pain M54.9 and Allergic state, subsequent encounter T78.40XD [facility] [address] [place] [address] 73806- 2026 October, [facility] [id number] [place] [address] 33873- 2113 Sep, Back pain M54.9 [facility] [id number] [place] [address] 25850- 9694 Sep, Unspecified psychosis not due to a substance or known physiological condition F29 ; Personality disorder F60.9 and Factitious disorder imposed on self, recurrent episode F68.10 [facility] [address] [address]- 5464 Sep, [facility] [address], [place] [address]- 7618 Sep, [facility] [address], [place] [address]- 0472 Sep, [facility] [id number] [place] [address] 18760- 3834 Sep, [facility] [address], [place] [address]- 8365 Aug, [facility] [address], [place] [address]- 6790 Aug, Back pain M54.9 [facility] [id number] [address] 7211 15 Aug, 2017 Factitious disorder imposed on self, recurrent episode F68.10 ; Personality disorder F60.9 ; Insomnia, unspecified type G47.00 and Anxiety F41.9 [facility] [id number] [address] 04[address] 08 Aug, 2017 Back pain M54.9 ; Iron deficiency anemia, unspecified iron deficiency anemia type D50.9 ; Chronic kidney disease, unspecified stage N18.9 and Breast cancer screening Z12.31 [facility] [id number] [place] [address] [id number] Jul, Back pain M54.9 [facility] [id number] [id number] Jul, [facility] [id number] [place] [address] [id number] Jul, [facility] [id number] [place] [address] [id number] Jun, Back pain M54.9 [facility] [id number] [id number] Jun, [facility] [id number] [address] Jun, Back pain M54.9 [facility] [id number] [address] [address]2 Jun, Back pain M54.9 ; Seizure disorder G40.909 and Age-related osteoporosis without current pathological fracture M81.0 [facility] [id number] [id number] May, [facility] [address] [address] 6277 May, Back pain M54.9 [facility] [id number], [place] [address]- 7322 Apr, Back pain M54.9 ; Encounter for immunization Z23 ; Gastroesophageal reflux disease without esophagitis K21.9 ; Age-related osteoporosis without current pathological fracture M81.0 and Chronic pruritus L29.9 [facility] [address] [place] [address] 00566- 0070 Apr, History of CVA with residual deficit I69.30 [facility] [id number] [place] [address] 29881- 9464 Apr, Factitious disorder imposed on self, recurrent episode F68.10 and Personality disorder F60.9 [facility] [id number] [place] [address] [id number] Apr, Back pain M54.9 [facility] [id number] [place] [address] 63582- 8273 Mar, Factitious disorder imposed on self, recurrent episode F68.10 [facility] [id number] [place] [address] 14393- 5570 Mar, [facility] [id number] [place] [address] [id number] Mar, [facility] [id number] [place] [address] [id number] Mar, Back pain M54.9 [facility] [address] [place] [address] 49668- 5647 Mar, Back pain M54.9 ; Seizure disorder G40.909 and Age-related osteoporosis without current pathological fracture M81.0 [facility] [address] [place] [address] 81449- 8168 Feb, History of CVA with residual deficit I69.30 [facility] [address] [place] [address] 31182- 1658 Feb, Factitious disorder imposed on self, recurrent episode F68.10 and Personality disorder F60.9 [facility] [id number] [place] [address] 04096- 2226 15 Feb, 2017 Back pain M54.9 [facility] [address], [place] [address]- 4910 Feb, [facility] [address], [place] [address]- 6546 Jan, [facility] [address] [place] [address] [id number] Jan, Age- related osteoporosis without current pathological fracture M81.0 and Allergic state, subsequent encounter T78.40XD [facility] [id number], [place] [address]- 4051 Jan, Factitious disorder imposed on self, recurrent episode F68.10 and Personality disorder F60.9 [facility] [address], [place] [address]- 9094 Dec, Back pain M54.9 [facility] [address], [place] [address]- 9475 Dec, Personality disorder F60.9 and Factitious disorder imposed on self, recurrent episode F68.10 [facility] [id number] [id number] Dec, Back pain M54.9 [facility] [id number] [id number] Dec, [facility] [id number] [id number] Dec, [facility] [id number] [address]- 0958 Dec, [facility] [address], [place] [address]- 0233 Nov, [facility] [address], [place] [address]- 2315 Nov, Back pain M54.9 ; Anemia, unspecified type D64.9 and History of colon polyps Z86.010 [facility] [id number] [address] 2078 Nov, Back pain M54.9 [facility] [id number] [id number] October, Back pain M54.9 [facility] [address] [id number] October, Back pain M54.9 and Gastroesophageal reflux disease without esophagitis K21.9 [facility] [id number] [address] Sep, [facility] [address] [facility] [id number], [place] [address]- 9851 Sep, [facility] [id number], [place] [address]- 9945 Sep, [facility] [address], [place] [address]- 6077 Sep, [facility] [id number], [place] [address]- 6017 Sep, [facility] [id number], [place] [address]- 6738 Sep, Seizure disorder G40.909 [facility] [id number], [place] [address]- 9919 Sep, Back pain M54.9 [facility] [id number], [place] [address]- 3586 Sep, [facility] [address] [facility] [id number], [place] [address]- 8832 Aug, Back pain M54.9 [facility] [address] [facility] [id number][place] [address] 1519 Aug, Seizure disorder G40.909 [facility] [address] [id number] [id number] Aug, [facility] [address] [id number] [id number] 16 Aug, 2016 Back pain M54.9 [facility] [id number] [id number] 14 Aug, 2016 Back pain M54.9 [facility] [id number] [place] [address] [id number] 06 Aug, 2016 Back pain M54.9 [facility] [address] [place] [id number] Jul, Weakness R53.1 [facility] [id number] [place] [address] 05428- 7854 Jul, Seizure disorder G40.909 [facility] [id number] [place] [address] 47489- 0897 Jul, [facility] [id number] [place] [address] 14774- 7518 Jul, Breast cancer screening Z12.39 [facility] [id number] [place] [address] 71531- 4770 Jul, [facility] [address] [place] [address] 37907- 1466 Jul, [facility] [id number] [place] [address] 34368- 4857 Jul, [facility] [address] [place] [address] 01753- 5503 Jul, Seizure disorder G40.909 ; Fatigue, unspecified type R53.83 ; Perennial allergic rhinitis, unspecified allergic rhinitis trigger J30.89 and Chronic kidney disease, unspecified stage N18.9 [facility] [id number] [place] [address] 57010- 9152 Jul, [facility] [id number] [place] [address] 72988- 3266 Jul, Seizure disorder G40.909 [facility] [id number] [place] [address] 25749- 3233 Jun, [facility] [address], [place] [address]- 8102 Jun, [address] [id number] Jun, Perennial allergic rhinitis, unspecified allergic rhinitis trigger J30.89 [facility] [id number] [place] [address] [id number] Jun, [facility] [id number] [place] [address] 49037- 0085 Jun, Seizure disorder G40.909 [facility] [id number] [place] [address] [id number] Jun, [facility] [id number] [place] [address] [id number] May, [facility] [id number] [place] [address] 83800- 4020 May, [facility] [id number] [place] [address] 53015- 5723 May, [facility] [id number] [place] [address] 63794- 5743 May, [facility] [address] [place] [address] 65794- 2419 May, History of CVA with residual deficit I69.30 [facility] [address], [place] [address]- 7221 May, [facility] [id number] [place] [address] 03837- 1848 May, [facility] [id number] [place] [address] 62993- 9203 May, [facility] [id number] [place] [address] 33512- 9063 May, Seizure disorder G40.909 [facility] [address] [place] [address] 27926- 7184 May, [facility] [address] [place] [address] May, Back pain M54.9 and Seizure disorder G40.909 [facility] [address] [id number], [place] [address]- 8193 Apr, [facility] [address] [facility] [id number] [place] [address] 00725- 3918 Apr, Back pain M54.9 [facility] [address] [facility] [id number] [place] [address] 45060- 4132 Mar, [employer] [address] [place] [address] Mar, Insomnia, unspecified type G47.00 [facility] [id number], [place] [address]- 8625 Mar, [facility] [address] [facility] [id number] [place] [address] 32332- 7837 Feb, [facility] [address] [facility] [id number] [place] [address] 78822- 0695 Feb, [facility] [id number] [place] [address] 25032- 0087 Feb, [facility] [address] [facility] [id number], [place] [address]- 1910 Jan, [facility] [address] [facility] [id number] [place] [address] 07462- 0179 Jan, [facility] [address] [place] [address] Jan, Seizure disorder G40.909 and Back pain M54.9 [facility] [address] [facility] [id number][place] [address]- 3094 Dec, [facility] [address] [facility] [id number][place] [address]- 2032 Dec, [facility] [id number] [place] [address] 42982- 9022 08 Dec, 2015 [facility] [id number] [place] [address] 56831- 6922 Nov, [facility] [id number] [place] [address] 28269- 0554 Nov, [facility] [id number] [place] [address] 83868- 3212 Nov, Back pain M54.9 [facility] [id number] [place] [address] 84999- 6722 October, [facility] [id number] [place] [address] 24026- 4098 October, Back pain M54.9 [facility] [id number] [place] [address] 91337- 3743 October, Seizure disorder G40.909 and B12 deficiency E53.8 [facility] [id number] [place] [address] 66086- 3259 Sep, History of CVA with residual deficit I69.30 [facility] [id number] [place] [address] 63170- 2308 Sep, [facility] [address] [place] [address] 79561- 6479 Sep, [facility] [id number] [place] [address] 71564- 5738 Sep, Back pain M54.9 [facility] [address] [place] [address] 54344- 2996 Sep, Seizure disorder G40.909 [facility] [id number] [place] [address] 23860- 3712 Aug, Back pain M54.9 [facility] [address] [place] [address] 48627- 7005 Aug, Seizure disorder G40.909 [facility] [address], [place] [address]- 9466 16 Aug, 2015 Back pain M54.9 [facility] [id number] [place] [address] 12550 2546 14 Aug, 2015 Heart failure, unspecified I50.9 [facility] [address] [place] [address] 45222 2546 14 Aug, 2015 Medication monitoring encounter Z51.81 [facility] [id number] [place] [address] 35354- 5106 15 Jul, 2015 [facility] [id number] [place] [address] 11634- 9406 09 Jul, 2015 Seizure disorder G40.909 [facility] [address] [place] [address] 69052- 0226 05 Jul, 2015 Back pain M54.9 [facility] [address] [place] [address] 37636- 7856 Jun, [facility] [address] [place] [address] 83231- 8396 Jun, [facility] [id number] [place] [address] 79590- 4924 Jun, Mental status change R41.82 ; History of CVA with residual deficit I69.30 ; Back pain M54.9 and Seizure disorder G40.909 [facility] [address], [place] [address]- 9786 Jun, [facility] [address], [place] [address]- 2546 May, [facility] [address] [place] [address] 46887- 2546 Apr, [facility] [address], [place] [address]- 0516 Apr, Medication monitoring encounter Z51.81 [facility] [address] [id number] [place] [address]- 6724 Mar, Vomiting R11.10 [facility] [address] [id number] [place] [address]- 1686 Mar, [facility] [address] [id number] [place] [address]- 8896 Feb, [facility] [address] [id number] [place] [address]- 5383 Feb, UTI (urinary tract infection) 599.0 [facility] [address] [id number] [place] [address]- 7836 Jan, [facility] [address] [id number] [place] [address]- 4916 Jan, [facility] [address] [id number] [place] [address]- 2096 Jan, [facility] [address] [id number] [place] [address]- 0263 Dec, [facility] [address] [id number] [place] [address]- 1259 Dec, [facility] [address] [id number] [place] [address]- 5116 Dec, [facility] [address] [id number] [place] [address]- 1446 Dec, [facility] [address] [id number] [place] [address] 2546 Nov, UNKNOWN Nov, [facility] [address] [id number] [place] [address]- 2546 October, [facility] [address] [id number] [place] [address] 2546 Sep, [facility] [address] [id number] [place] [address]- 6436 Sep, [facility] [place] [facility] [address] [id number] [place] [address]- 1115 Aug, [facility] [place] [facility] [address] [id number] [place] [address]- 0563 Aug, [facility] [place] [facility] [address] [id number] [place] [address]- 1533 Jul, [facility] [place] [facility] [address] [id number] [place] [address] Jul, [facility] [place] [facility] [address] [id number] [place] [address] Jul, [facility] [place] [facility] [address] [id number] [place] [address] Jul, [facility] [place] [facility] [address] [id number] [place] [address] Jul, [facility] [place] [facility] [address] [id number] [place] [address] Jun, [facility] [place] [facility] [address] [id number] [place] [address] Jun, [facility] [place] [facility] [address] [id number] [place] [address] Jun, [facility] [place] [facility] [address] [id number] [place] [address] Jun, [facility] [place] [facility] [address] [id number], [place] [address] Jun, [facility] [place] [facility] [address] [id number] [place] [address] Jun, [facility] [place] [facility] [address] [id number] [place] [address] Jun, [facility] [place] [facility] [address] [id number], [place] [address] Jun, [facility] [place] [facility] [address] [id number] [place] [address] Jun, [facility] [place] [facility] [address] [id number] [place] [address] Jun, [facility] [place] [facility] [address] [id number] [place] [address] Jun, [facility] [place] [facility] [address] [id number] [place] [address] 1986 Jun, [facility] [place] [facility] [address] [id number] [place] [address] Jun, [facility] [place] [facility] [address] [id number] [place] [address] Jun, [facility] [place] [facility] [address] [id number] [place] [address] Jun, [facility] [place] [facility] [address] [id number] [place] [address] Jun, [facility] [place] [facility] [address] [id number] [place] [address] Jun, [facility] [place] [facility] [address] [id number] [place] [address] Jun, [facility] [place] [facility] [address] [id number] [place] [address] May, [facility] [place] [facility] [address] [id number] [place] [address] May, [facility] [place] [facility] [address] [id number] [place] [address] 30 May, 2014 [facility] [place] [facility] [address] [id number] [place] [address] May, [facility] [place] [facility] [address] [id number] [place] [address] 19 May, 2014 [facility] [place] [facility] [address] [id number] [place] [address] 16 May, 2014 [facility] [place] [facility] [address] [id number] [place] [address] 16 May, 2014 [facility] [address] [id number] [place] [address] May, [facility] [place] [facility] [address] [id number] [place] [address] May, [facility] [address] [id number] May, [facility] [facility] [address] [id number] [place] [address] May, [facility] [address] [id number] [place] [address] 4098 May, [facility] [address] [id number] [place] [address] May, [facility] [address] [id number] [place] [address] Apr, [facility] [address] [id number] [place] [address] Apr, [facility] [place] [facility] [address] [id number] [place] [address]- 9164 Apr, [facility] [address] [id number] [place] [address] 9090 Apr, [facility] [place] [facility] [address] [id number] [place] [address]- 1208 Apr, [facility] [address] [id number] [place] [address] 0[address] Apr, [facility] [place] [address] [id number] [place] [address] 0[address] Mar, [facility] [place] [facility] [address] [id number] [place] [address] 295[address] Mar, [facility] [place] [facility] [address] [id number] [place] [address] 3364 Mar, [facility] [place] [address] [id number] [place] [address] 1969 Mar, [facility] [address] [id number] [place] [address]- 1055 Mar, [facility] [place] [facility] [address] [id number] [place] [address]- 7310 Mar, [facility] [place] [address] [id number] [place] [address]- 4681 Feb, [facility] [address] [id number] [place] [address]- 9659 24 Feb, 2014 [facility] [address] [id number] [place] [address] 54[address] Feb, [facility] [address] [id number] [place] [address]- 8769 Feb, [facility] [address] [id number] [place] [address]- 5057 Feb, [facility] [address] [id number] [place] [address]- 2543 Feb, [facility] [address] [id number] [place] [address]- 5247 Feb, [facility] [address] [id number] [place] [address] 7290 Feb, [facility] [address] [id number] [place] [address]- 2540 Feb, [facility] [address] [id number] [place] [address] 25[address] Feb, [facility] [address] [place] [id number] Feb, [facility] [address] [id number] [place] [address] 25[address] Feb, [facility] [address] [id number] [place] [address]- 6381 Jan, [facility] [facility] [address] [id number] [place] [address]- 4687 Jan, [facility] [facility] [address] [id number] [place] [address] 8279 Dec, [facility] [address] [id number] [place] [address]- 7684 Dec, [facility] [address] [id number] [place] [address] 2138 Dec, [facility] [address] [id number] [place] [address]- 0499 Dec, [facility] [place] [facility] [address] [id number] [place] [address]- 3361 Dec, [facility] [place] [facility] [address] [id number] [place] [address]- 5646 Dec, [facility] [place] [facility] [address] [id number] [place] [address]- 4830 Dec, [facility] [place] [facility] [address] [id number] [place] [address]- 3826 Dec, [facility] [place] [facility] [address] [id number] [place] [address]- 6058 Dec, [facility] [address] [id number] [place] [address]- 1053 Dec, [facility] [address] [id number] [place] [address]- 7705 Nov, [facility] [facility] [address] [id number] [place] [address]- 3958 Nov, [facility] [address] [id number] [place] [address]- 8080 Nov, [facility] [place] [address] [id number] [place] [address]- 8602 Nov, [facility] [address] [id number] [place] [address]- 1370 Nov, [facility] [address] [id number] [place] [address]- 1346 Nov, [facility] [address] [id number] [place] [address]- 3592 Nov, [facility] [place] [facility] [address] [id number] [place] [address]- 9230 Nov, [facility] [address] [id number] [place] [address]- 7457 Nov, [facility] [place] [address] [id number] [place] [address]- 0394 Nov, [facility] [place] [address] [id number] [place] [address]- 0560 Nov, [facility] [address] [id number] [place] [address]- 7702 Nov, [facility] [address] [id number] [place] [address]- 9054 Nov, [facility] [place] [address] [id number] [place] [address]- 5796 Nov, [facility] [address] [id number] [place] [address]- 7650 October, [facility] [address] [id number] [place] [address]- 7613 October, [facility] [facility] [address] [id number] [place] [address]- 6914 October, [facility] [address] [id number] [place] [address]- 5808 October, [facility] [address] [id number] [place] [address]- 1155 October, [facility] [address] [id number] [place] [address]- 4155 October, [facility] [address] [id number] [place] [address]- 0735 October, [facility] [address] [id number] [place] [address]- 4177 October, [facility] [address] [id number] [place] [address]- 3413 October, [facility] [address] [id number] [place] [address]- 1402 October, [facility] [address] [id number] [place] [address]- 6942 Sep, [facility] [address] [id number] [place] [address]- 3582 Sep, [facility] [address] [id number] [place] [address]- 2242 Sep, [facility] [address] [id number] [place] [address]- 4225 Sep, [facility] [address] [id number] [place] [address] 1980 Sep, [facility] [address] [id number] [place] [address]- 8853 Sep, [facility] [address] [id number] [place] [address]- 3846 Sep, [facility] [address] [id number] [place] [address]- 1061 Sep, [facility] [address] [id number] [place] [address]- 5418 Sep, [facility] [address] [id number] [place] [address]- 1716 Sep, [facility] [address] [id number] [place] [address]- 6751 Aug, [facility] [address] [id number] [place] [address]- 5522 Aug, [facility] [address] [id number] [place] [address]- 9476 Aug, [facility] [address] [id number] [place] [address]- 0223 Aug, [facility] [address] [facility] [id number] [place] [address]- 3981 Aug, [facility] [address] [id number] [place] [address]- 3635 Aug, [facility] [address] [id number] [place] [address]- 7382 Aug, [facility] [address] [facility] [id number] [place] [address]- 1821 Aug, [facility] [address] [facility] [id number] [place] [address]- 0194 Aug, [facility] [address] [id number] [place] [address]- 2428 Jul, [facility] [address] [id number] [place] [address]- 3842 Jul, [facility] [address] [facility] [id number] [place] [address]- 3898 Jul, [facility] [address] [id number] [place] [address]- 1416 Jul, [facility] [address] [id number] [place] [address]- 5649 Jul, [facility] [address] [id number] [place] [address]- 7472 Jul, [facility] [address] [id number] [place] [address]- 4209 Jul, [facility] [address] [facility] [id number] [place] [address]- 2870 Jul, [facility] [address] [id number] [place] [address]- 7538 Jul, [facility] [address] [id number] [place] [address]- 0316 Jul, [facility] [address] [id number] [place] [address]- 9016 Jul, [facility] [address] [id number] [place] [address]- 5118 Jul, [facility] [address] [id number] [place] [address]- 1387 Jul, [facility] [address] [id number] [place] [address]- 9406 Jul, [facility] [address] [id number] [place] [address]- 3958 Jul, [facility] [address] [id number] [place] [address]- 9143 Jul, [facility] [address] [id number] [place] [address]- 1617 Jun, [facility] [address] [id number] [place] [address]- 8306 Jun, [facility] [address] [id number] [place] [address]- 0385 Jun, [facility] [address] [id number] [place] [address]- 4537 Jun, [facility] [address] [id number] [place] [address]- 1551 Jun, [facility] [address] [id number] [place] [address]- 8409 Jun, [facility] [address] [id number] [place] [address]- 9454 May, [facility] [address] [id number] [place] [address]- 8632 May, [facility] [address] [id number] [place] [address]- 2682 May, [facility] [address] [id number] [place] [address]- 7561 May, [facility] [address] [id number] [place] [address]- 6795 Apr, [facility] [address] [id number] [place] [address]- 9952 Apr, [facility] [address] [id number] [place] [address]- 2535 Apr, [facility] [facility] [address] [id number] [place] [address]- 4486 Apr, [facility] [address] [id number] [place] [address]- 7083 Apr, [facility] [address] [id number] [place] [address]- 9412 Apr, [facility] [place] [address] [id number] [place] [address]- 7504 Apr, [facility] [address] [id number] [place] [address]- 1269 Apr, [facility] [address] [id number] [place] [address]- 4783 Apr, [facility] [address] [id number], [place] [address]- 6374 Apr, [facility] [address] [id number] [place] [address]- 8368 Apr, [facility] [address] [id number] [place] [address]- 9449 Apr, [facility] [address] [id number], [place] [address]- 1858 Mar, [facility] [address] [id number] [place] [address]- 6521 28 Mar, 2012 [facility] [address] [id number] [place] [address]- 6034 16 Mar, 2013 [facility] [address] [id number] [place] [address]- 6473 16 Mar, 2013 [facility] [place] [facility] [address] [id number] [place] [address]- 9076 15 Mar, 2013 [facility] [address] [id number] [place] [address]- 8477 15 Mar, 2013 [facility] [address] [id number] [place] [address]- 0317 27 Feb, 2012 [facility] [address] [id number] [place] [address]- 8201 25 Feb, 2013 [facility] [address] [id number] [place] [address]- 3250 25 Feb, 2012 [facility] [place] [address] [id number] [place] [address]- 8123 23 Feb, 2013 [facility] [place] [facility] [address] [id number] [place] [address]- 3450 17 Feb, 2013 [facility] [address] [id number] [place] [address]- 2543 10 Feb, 2013 [facility] [address] [id number] [place] [address]- 2540 04 Feb, 2012 [facility] [address] [id number] [place] [address]- 2540 30 Jan, 2013 [facility] [address] [id number] [place] [address]- 2545 20 Jan, 2013 [facility] [address] [id number] [place] [address]- 3150 15 Jan, 2013 [facility] [place] [facility] [address] [id number] [place] [address]- 4096 Jan, [facility] [place] [facility] [address] [id number] [place] [address]- 5535 Jan, [facility] [place] [facility] [address] [id number] [place] [address]- 3616 Jan, [facility] [place] [facility] [address] [id number] [place] [address]- 9715 Jan, [facility] [place] [facility] [address] [id number] [place] [address]- 9805 Dec, [facility] [place] [facility] [address] [id number] [place] [address]- 7625 Dec, [facility] [place] [facility] [address] [id number] [place] [address]- 8008 Dec, [facility] [place] [facility] [address] [id number] [place] [address]- 0329 Dec, [facility] [place] [facility] [address] [id number] [place] [address]- 0950 Dec, [facility] [place] [facility] [address] [id number] [place] [address]- 4774 Dec, [facility] [place] [facility] [address] [id number] [place] [address]- 3749 Nov, [facility] [place] [facility] [address] [id number] [place] [address]- 9264 Nov, [facility] [place] [facility] [address] [id number] [place] [address]- 2747 Nov, [facility] [place] [facility] [address] [id number] [place] [address]- 5767 Nov, [facility] [place] [facility] [address] [id number] [place] [address]- 1516 October, [facility] [place] [facility] [address] [id number] [place] [address]- 4024 October, [facility] [place] [facility] [address] [id number] [place] [address]- 1417 October, [facility] [address] [id number] [place] [address]- 8626 October, [facility] [address] [id number] [place] [address]- 0232 30 Sep, 2012 [facility] [address] [id number] [place] [address]- 6057 Sep, [facility] [address] [id number] [place] [address]- 5068 16 Sep, 2012 [facility] [address] [id number] [place] [address]- 8419 Sep, [facility] [address] [id number] [place] [address]- 2292 Sep, [facility] [address] [id number] [place] [address]- 1683 Sep, [facility] [address] [id number] [place] [address]- 5079 Sep, [facility] [address] [id number] [place] [address]- 9236 Sep, [facility] [address] [id number] [place] [address]- 3452 Aug, [facility] [address] [id number] [place] [address]- 8845 Aug, [facility] [address] [id number] [place] [address]- 2540 05 Aug, 2012 [facility] [address] [id number] [place] [address]- 6941 18 Jul, 2012 [facility] [address] [id number] [place] [address]- 2546 08 Jul, 2012 [facility] [address] [id number] [place] [address]- 2756 07 Jul, 2012 [facility] [place] [facility] [address] [id number] [place] [address]- 9616 06 Jul, 2012 [facility] [place] [facility] [address] [id number] [place] [address]- 2771 05 Jul, 2012 [facility] [place] [facility] [address] [id number] [place] [address]- 7583 Jun, [facility] [place] [facility] [address] [id number] [place] [address]- 2117 Jun, [facility] [place] [facility] [address] [id number] [place] [address]- 2220 Jun, [facility] [place] [facility] [address] [id number] [place] [address]- 3182 May, [facility] [place] [facility] [address] [id number] [place] [address]- 5917 May, [facility] [place] [facility] [address] [id number] [place] [address]- 8051 May, [facility] [place] [facility] [address] [id number] [place] [address]- 1152 May, [facility] [place] [facility] [address] [id number] [place] [address]- 1268 May, [facility] [place] [facility] [address] [id number] [place] [address]- 5305 May, [facility] [place] [facility] [address] [id number] [place] [address]- 3917 May, [facility] [place] [facility] [address] [id number] [place] [address]- 2504 Apr, [facility] [place] [facility] [address] [id number] [place] [address]- 6542 Apr, [facility] [place] [facility] [address] [id number] [place] [address]- 9594 Apr, [facility] [place] [facility] [address] [id number] [place] [address]- 6086 Apr, [facility] [place] [facility] [address] [id number] [place] [address]- 0975 Apr, [facility] [place] [facility] [address] [id number] [place] [address]- 2836 Apr, [facility] [place] [facility] [address] [id number] [place] [address]- 2966 Apr, [facility] [place] [facility] [address] [id number] [place] [address]- 9742 Apr, [facility] [place] [facility] [address] [id number] [place] [address] Apr, [facility] [place] [facility] [address] [id number] [place] [address] Apr, [facility] [place] [facility] [address] [facility] [id number] [place] [address] Apr, [facility] [place] [facility] [address] [id number] [place] [address] Mar, [facility] [place] [facility] [address] [id number] [place] [address]40 Mar, [facility] [place] [facility] [address] [facility] [id number] [place] [address] Mar, [facility] [place] [facility] [address] [id number] [place] [address] Mar, [facility] [place] [facility] [address] [id number], [place] [address] Mar, [facility] [place] [facility] [address] [id number] [place] [address] Mar, [facility] [place] [facility] [address] [facility] [id number] [place] [address]84 Mar, [facility] [place] [facility] [address] [id number], [place] [address] Mar, [facility] [place] [facility] [address] [id number] [place] [address] 16 Mar, 2012 [facility] [place] [facility] [address] [id number] [place] [address] 3985 16 Mar, 2012 [facility] [place] [facility] [address] [id number] [place] [address] 4996 04 Mar, 2012 [facility] [place] [facility] [address] [id number] [place] [address], [place] [address] 2011 [facility] [place] [facility] [address] [id number] [place] [address] 27 Feb, 2011 [facility] [place] [facility] [address] [id number] [place] [address] 27 Feb, 2011 [facility] [place] [facility] [address] [id number] [place] [address] 6065 26 Feb, 2011 [facility] [place] [facility] [address] [id number] [place] [address]046 24 Feb, 2012 [facility] [place] [facility] [address] [id number] [place] [address] 9429 19 Feb, 2012 [facility] [place] [facility] [address] [id number] [place] [address] 1998 18 Feb, 2012 [facility] [place] [facility] [address] [id number] [place] [address] 36[address] 18 Feb, 2012 [facility] [place] [facility] [address] [id number] [place] [address] 2781 18 Feb, 2012 [facility] [place] [facility] [address] [id number] [place] [address]- [address]101 30 Jan, 2012 [facility] [place] [facility] [address] [id number] [place] [address] Jan, [facility] [place] [facility] [address] [id number] [place] [address] Jan, [facility] [place] [facility] [address] [id number] [place] [address] 1460 Jan, [facility] [place] [facility] [address] [id number] [place] [address] Dec, [facility] [place] [facility] [address] [id number] [place] [address] Dec, [facility] [place] [facility] [address] [id number] [place] [address] Dec, [facility] [place] [facility] [address] [id number] [place] [address] 4126 Dec, [facility] [place] [facility] [address] [id number] [place] [address] Dec, [facility] [place] [facility] [address] [id number] [place] [address]102 Dec, [facility] [place] [facility] [address] [id number] [place] [address] Dec, [facility] [place] [facility] [address] [id number] [place] [address] 3301 Dec, [facility] [place] [facility] [address] [id number] [place] [address]653 Dec, [facility] [place] [facility] [address] [id number] [place] [address] Dec, [facility] [place] [facility] [address] [id number] [place] [address] Dec, [facility] [place] [facility] [address] [id number] [place] [address]- [address] Dec, [facility] [place] [facility] [address] [id number] [place] [address] Dec, [facility] [place] [facility] [address] [id number] [place] [address] 1217 Dec, [facility] [place] [facility] [address] [id number] [place] [address] Nov, [facility] [place] [facility] [address] [id number] [place] [address] 2970 14 Nov, 2011 [facility] [address] [id number] [place] [address]151 11 Nov, 2011 [facility] [address] [id number] [place] [address] 359[address] 07 Nov, 2011 [facility] [address] [id number] [place] [address]- [address] 07 Nov, 2011 [facility] [address] [id number] [place] [address]- 9562 07 Nov, 2011 [facility] [address] [id number] [place] [address]- 2061 30 Oct, 2011 [facility] [address] [id number] [place] [address] October, [facility] [address] [id number] [place] [address] October, [facility] [address] [id number] [place] [address] 295[address] October, [facility] [address] [id number] [place] [address]- 8631 19 Sep, 2011 [facility] [address] [id number] [place] [address]- 1220 17 Sep, 2011 [facility] [address] [id number] [place] [address] 4883 13 Sep, 2011 [facility] [address] [id number] [place] [address] 7878 09 Sep, 2011 [facility] [place] [facility] [address] [id number] [place] [address] 1378 03 Sep, 2011 [facility] [address] [id number] [place] [address] 3006 Aug, [facility] [address] [id number] [place] [address] 44[address] Aug, [facility] [address] [id number] [place] [address] Aug, [facility] [address] [id number] [place] [address]304 20 Aug, 2011 [facility] [address] [facility] [id number] [place] [address]- 8772 13 Aug, 2011 [facility] [address] [id number] [place] [address]- 0879 02 Aug, 2011 [facility] [address] [id number] [place] [address]- [address] Aug, [facility] [address] [id number] [place] [address]- 3826 16 Jul, 2011 [facility] [address] [facility] [id number] [place] [address]- 4061 16 Jul, 2011 [facility] [address] [facility] [id number] [place] [address]- 2425 15 Jul, 2011 [facility] [address] [facility] [id number] [place] [address]- 8315 15 Jul, 2011 [facility] [address] [id number] [address] 24 Jun, [address] [id number] Jun, [facility] [address] [facility] [id number], [place] [address] Jun, [facility] [address] [facility] [id number], [place] [address] Jun, [facility] [address] [facility] [id number], [place] [address] Jun, [facility] [address] [facility] [id number], [place] [address] 04 Jun, 2011 [facility] [address] [facility] [id number], [place] [address] Jun, [facility] [place] [facility] [address] [id number] [place] [address] Jun, [facility] [place] [facility] [address] [id number] [place] [address] May, [facility] [place] [facility] [address] [id number] [place] [address] May, [facility] [place] [facility] [address] [id number] [place] [address] May, [facility] [place] [facility] [address] [id number] [place] [address] May, [facility] [place] [facility] [address] [id number] [place] [address] May, [facility] [place] [facility] [address] [id number] [place] [address] May, [facility] [place] [facility] [address] [id number] [place] [address] May, [facility] [place] [facility] [address] [id number] [place] [address] Apr, [facility] [place] [facility] [address] [id number] [place] [address] Apr, [facility] [place] [facility] [address] [id number], [place] [address] Apr, [facility] [place] [facility] [address] [id number] [place] [address] Mar, [facility] [place] [facility] [address] [id number] [place] [address] 20 Mar, 2011 [facility] [place] [facility] [address] [id number] [place] [address] 14 Mar, 2011 [facility] [place] [facility] [address] [id number] [place] [address] 11 Mar, 2011 [facility] [place] [facility] [address] [id number] [place] [address] 10 Mar, 2011 [facility] [address] [id number] [place] [address] 10 Mar, 2011 [facility] [place] [facility] [address] [id number] [place] [address] 97[address] 10 Mar, 2011 [facility] [address] [id number] [place] [address] 11 Jan, 2011 [facility] [address] [id number] [place] [address] 27 May, 2010 [facility] [address] [id number] [place] [address] 21 May, 2010 [facility] [address] [id number] [place] [address] 13 May, 2010 [facility] [address] [id number] [place] [address] 13 May, 2010 [facility] [address] [id number] [place] [address] 10 May, 2010 [facility] [address] [id number] [place] [address] 06 May, 2010 [facility] [address] [id number] [place] [address] 29 Apr, 2010 [facility] [place] [facility] [address] [id number] [place] [address] 26 Apr, 2010 [facility] [address] [id number] [place] [address] 19 Apr, 2010 [facility] [place] [facility] [address] [id number] [place] [address] 18 Apr, 2010 [facility] [place] [facility] [address] [id number] [place] [address] 15 Apr, 2010 [facility] [place] [facility] [address] [id number] [place] [address] Apr, [facility] [address] [id number], [place] [address] Apr, [facility] [address], [place] [address] Apr, [facility] [address], [place] [address] Apr, [facility] [address] [facility] [id number], [place] [address] Apr, [facility] [address] [facility] [id number], [place] [address] Mar, [facility] [address], [place] [address] Mar, [facility] [address], [place] [address] Mar, [facility] [address], [place] [address] Mar, [facility] [address], [place] [address] Mar, [facility] [address], [place] [address] Dec, [facility] [address] [id number], [place] [address] Nov, IMMUNIZATIONS No Known Immunizations SOCIAL HISTORY Never Assessed REASON FOR VISIT Dilanti level PLAN OF CARE VITAL SIGNS MEDICATIONS Medication Instructions Dosage Frequency Start Date End Date Duration Status Phenytoin Sodium Extended 100 mg Orally 2 times a day 1 capsule 12h Sep 30 day(s) Active RESULTS No Results PROCEDURES [...] surgery and skin graft, cholecysectomy Hospitalization History [facility]2016 [facility] 08/2017
--- OUTSIDE RECORDS SUMMARY | 2018-02-04 13:11 | XMS REPORT ---
Author Author NAHOMY BETH Organization [facility] Address [address] [place] [address] Care Team Providers Care Vibration Technician Name Role Phone NAHOMY BETH Unavailable PROBLEMS Type Condition ICD9-CM Code [id number] Code Onset Dates Condition Status SNOMED Code Problem Anemia, unspecified type D64.9 Active 882146504 Problem Personality disorder F60.9 Active 91410315 Problem Factitious disorder imposed on self, recurrent episode F68.10 Active 88135881 Problem Ventral hernia without obstruction or gangrene K43.9 Active 729884734 Problem Allergic state, subsequent encounter T78.40XD Active 346613401 Problem Anxiety F41.9 Active 36400177 Problem Age-related osteoporosis without current pathological fracture M81.0 Active 89869509 Problem Unspecified psychosis not due to a substance or known physiological condition F29 Active 84737882 Problem Iron deficiency anemia, unspecified iron deficiency anemia type D50.9 Active 75898912 Problem History of CVA with residual deficit I69.30 Active 727111914 Problem Seizure disorder G40.909 Active 137483728 Problem Perennial allergic rhinitis, unspecified allergic rhinitis trigger J30.89 Active 149143450 Problem Chronic kidney disease, unspecified stage N18.9 Active 118552593 Problem Back pain M54.9 Active 105409316 Problem Gastroesophageal reflux disease without esophagitis K21.9 Active 476386836 Problem Insomnia, unspecified type G47.00 Active 058433734 Problem History of colon polyps Z86.010 Active 837454373 ALLERGIES No Information ENCOUNTERS Encounter Location Date Diagnosis [facility] [id number], [place] [address] Jan, [facility] [id number], [place] [address] Jan, [facility] [address] [place] [address] 00126- 6815 Dec, Back pain M54.9 ; Seizure disorder G40.909 ; Ventral hernia without obstruction or gangrene K43.9 and History of CVA with residual deficit I69.30 [facility] [id number] [place] [address] 23609- 3455 Dec, Unspecified psychosis not due to a substance or known physiological condition F29 ; Personality disorder F60.9 and Factitious disorder imposed on self, recurrent episode F68.10 [address] [id number] [place] [address] 01041- 9652 Dec, [facility] [id number] [place] [address] 38722- 5108 Dec, Back pain M54.9 [facility] [id number] [place] [address] 33932- 0260 Dec, Factitious disorder imposed on self, recurrent episode F68.10 ; Personality disorder F60.9 ; Insomnia, unspecified type G47.00 and Anxiety F41.9 [address] [id number] [place] [address] 21501- 0561 Nov, Unspecified psychosis not due to a substance or known physiological condition F29 ; Personality disorder F60.9 and Factitious disorder imposed on self, recurrent episode F68.10 [address] [place] [address] 14647- 9514 Nov, Back pain M54.9 [facility] [id number] [place] [address] 22861- 7907 Nov, Unspecified psychosis not due to a substance or known physiological condition F29 ; Personality disorder F60.9 and Factitious disorder imposed on self, recurrent episode F68.10 [facility] [id number] [place] [address] 71116- 5959 October, [facility] [id number] [place] [address] 20803- 3229 October, [facility] [address], [place] [address]- 1628 October, Unspecified psychosis not due to a substance or known physiological condition F29 ; Personality disorder F60.9 and Factitious disorder imposed on self, recurrent episode F68.10 [facility] [address], [place] [address]- 3833 October, Back pain M54.9 [facility] [id number] [place] [address] 40454- 4410 October, Seizure disorder G40.909 ; Back pain M54.9 and Allergic state, subsequent encounter T78.40XD [facility] [address] [place] [address] 39444- 7284 October, [facility] [id number] [place] [address] 32825- 7851 Sep, Back pain M54.9 [facility] [address] [place] [address] 38866- 0778 Sep, Unspecified psychosis not due to a substance or known physiological condition F29 ; Personality disorder F60.9 and Factitious disorder imposed on self, recurrent episode F68.10 [facility] [address], [place] [address]- 4[address] Sep, [facility] [address], [place] [address]- 1128 Sep, [facility] [address], [place] [address]- 4197 Sep, [facility] [address] [place] [address] 39064- 5333 Sep, [facility] [address], [place] [address]- 7596 Aug, [facility] [address], [place] [address]- 5323 Aug, Back pain M54.9 [facility] [id number] [address] 7615 15 Aug, 2017 Factitious disorder imposed on self, recurrent episode F68.10 ; Personality disorder F60.9 ; Insomnia, unspecified type G47.00 and Anxiety F41.9 [facility] [id number] [address]- 9970 08 Aug, 2017 Back pain M54.9 ; Iron deficiency anemia, unspecified iron deficiency anemia type D50.9 ; Chronic kidney disease, unspecified stage N18.9 and Breast cancer screening Z12.31 [facility] [id number] [place] [address] [id number] Jul, Back pain M54.9 [facility] [id number] [id number] Jul, [facility] [id number] [place] [address] [phone] Jul, [facility] [id number] [place] [address] [id number] Jun, Back pain M54.9 [facility] [id number] [id number] Jun, [facility] [id number] [id number] Jun, Back pain M54.9 [facility] [id number] [address] [address] Jun, Back pain M54.9 ; Seizure disorder G40.909 and Age-related osteoporosis without current pathological fracture M81.0 [facility] [address] [address] May, [facility] [address] [address] 4613 May, Back pain M54.9 [facility] [id number], [place] [address]- 8207 Apr, Back pain M54.9 ; Encounter for immunization Z23 ; Gastroesophageal reflux disease without esophagitis K21.9 ; Age-related osteoporosis without current pathological fracture M81.0 and Chronic pruritus L29.9 [facility] [address] [place] [address] 93694- 9450 Apr, History of CVA with residual deficit I69.30 [facility] [id number] [place] [address] 75432- 4844 Apr, Factitious disorder imposed on self, recurrent episode F68.10 and Personality disorder F60.9 [facility] [id number] [place] [address] [phone] Apr, Back pain M54.9 [facility] [id number] [place] [address] 52666- 8509 Mar, Factitious disorder imposed on self, recurrent episode F68.10 [facility] [id number] [place] [address] 10839- 3169 Mar, [facility] [id number] [place] [address] [id number] Mar, [facility] [id number] [place] [address] [id number] Mar, Back pain M54.9 [facility] [address] [place] [address] 89576- 9786 Mar, Back pain M54.9 ; Seizure disorder G40.909 and Age-related osteoporosis without current pathological fracture M81.0 [facility] [address] [place] [address] 71754- 3209 Feb, History of CVA with residual deficit I69.30 [facility] [address] [place] [address] 09579- 1381 Feb, Factitious disorder imposed on self, recurrent episode F68.10 and Personality disorder F60.9 [facility] [id number] [place] [address] 63620- 6436 15 Feb, 2017 Back pain M54.9 [facility] [address], [place] [address]- 9862 Feb, [facility] [address], [place] [address]- 5819 Jan, [facility] [address] [place] [address] [id number] Jan, Age- related osteoporosis without current pathological fracture M81.0 and Allergic state, subsequent encounter T78.40XD [facility] [id number], [place] [address]- 8510 Jan, Factitious disorder imposed on self, recurrent episode F68.10 and Personality disorder F60.9 [facility] [address], [place] [address]- 3737 Dec, Back pain M54.9 [facility] [address], [place] [address]- 6646 Dec, Personality disorder F60.9 and Factitious disorder imposed on self, recurrent episode F68.10 [facility] [id number] [id number] Dec, Back pain M54.9 [facility] [id number], [place] [id number] Dec, [facility] [id number] [id number] Dec, [facility] [id number], [place] [address]- 0912 Dec, [facility] [address], [place] [address]- 7916 Nov, [facility] [address], [place] [address]- 3256 Nov, Back pain M54.9 ; Anemia, unspecified type D64.9 and History of colon polyps Z86.010 [facility] [id number] [address] 2024 Nov, Back pain M54.9 [facility] [id number] [id number] October, Back pain M54.9 [facility] [address] [place] [id number] October, Back pain M54.9 and Gastroesophageal reflux disease without esophagitis K21.9 [facility] [id number] [id number] Sep, [facility] [address] [facility] [id number], [place] [address]- 0817 Sep, [facility] [id number], [place] [address]- 9334 Sep, [facility] [address], [place] [address]- 4270 Sep, [facility] [id number], [place] [address]- 8290 Sep, [facility] [id number], [place] [address]- 2609 Sep, Seizure disorder G40.909 [facility] [id number], [place] [address]- 2285 Sep, Back pain M54.9 [facility] [id number], [place] [address]- 8646 Sep, [facility] [address] [facility] [id number], [place] [address]- 6315 Aug, Back pain M54.9 [facility] [address] [facility] [id number] [address] 0203 Aug, Seizure disorder G40.909 [facility] [address] [id number] [id number] Aug, [facility] [address] [id number] [id number] 16 Aug, 2016 Back pain M54.9 [facility] [id number] [id number] 14 Aug, 2016 Back pain M54.9 [facility] [id number] [place] [address] [id number] 06 Aug, 2016 Back pain M54.9 [facility] [address] [place] [id number] Jul, Weakness R53.1 [facility] [id number] [place] [address] 37821- 0802 Jul, Seizure disorder G40.909 [facility] [id number] [place] [address] 38825- 4302 Jul, [facility] [id number] [place] [address] 32698- 6522 Jul, Breast cancer screening Z12.39 [facility] [id number] [place] [address] 39152- 2075 Jul, [facility] [address] [place] [address] 83595- 7607 Jul, [facility] [id number] [place] [address] 09272- 7495 Jul, [facility] [address] [place] [address] 78457- 0450 Jul, Seizure disorder G40.909 ; Fatigue, unspecified type R53.83 ; Perennial allergic rhinitis, unspecified allergic rhinitis trigger J30.89 and Chronic kidney disease, unspecified stage N18.9 [facility] [id number] [place] [address] 74845- 1795 Jul, [facility] [id number] [place] [address] 06171- 4144 Jul, Seizure disorder G40.909 [facility] [id number] [place] [address] 05371- 6952 Jun, [facility] [address], [place] [address]- 2401 Jun, [address] [id number] Jun, Perennial allergic rhinitis, unspecified allergic rhinitis trigger J30.89 [facility] [id number] [place] [address] [id number] Jun, [facility] [id number] [place] [address] 35461- 2929 Jun, Seizure disorder G40.909 [facility] [id number] [place] [address] [id number] Jun, [facility] [id number] [place] [address] [id number] May, [facility] [address] [place] [address] 33474- 5931 May, [facility] [address] [place] [address] 86585- 2640 May, [facility] [address] [place] [address] 67866- 4883 May, [facility] [address] [place] [address] 46507- 3136 May, History of CVA with residual deficit I69.30 [facility] [address], [place] [address]- 8410 May, [facility] [address] [place] [address] 97931- 7384 May, [facility] [id number] [place] [address] 24925- 9026 May, [facility] [address] [place] [address] 85343- 0812 May, Seizure disorder G40.909 [facility] [address] [place] [address] 77020- 5157 May, [facility] [address] [place] [address] May, Back pain M54.9 and Seizure disorder G40.909 [facility] [address] [id number], [place] [address]- 5648 Apr, [facility] [address] [facility] [id number] [place] [address] 66827- 6149 Apr, Back pain M54.9 [facility] [address] [facility] [id number] [place] [address] 29061- 4688 Mar, [facility] [address] [place] [address] Mar, Insomnia, unspecified type G47.00 [facility] [id number], [place] [address]- 8003 Mar, [facility] [address] [facility] [id number] [place] [address] 35922- 7562 Feb, [facility] [address] [facility] [id number] [place] [address] 65357- 1286 Feb, [facility] [id number] [place] [address] 04080- 5523 Feb, [facility] [address] [facility] [id number], [place] [address]- 0352 Jan, [facility] [address] [facility] [id number] [place] [address] 47251- 8815 Jan, [facility] [address] [place] [address] Jan, Seizure disorder G40.909 and Back pain M54.9 [facility] [address] [facility] [id number], [place] [address]- 0781 Dec, [facility] [address] [facility] [id number], [place] [address]- 2634 Dec, [facility] [id number] [place] [address] 38971- 6124 08 Dec, 2015 [facility] [id number] [place] [address] 28055- 9630 Nov, [facility] [id number] [place] [address] 79357- 5042 Nov, [facility] [id number] [place] [address] 68550- 1210 Nov, Back pain M54.9 [facility] [id number] [place] [address] 14347- 5085 October, [facility] [id number] [place] [address] 04354- 7311 October, Back pain M54.9 [facility] [id number] [place] [address] 85360- 0722 October, Seizure disorder G40.909 and B12 deficiency E53.8 [facility] [id number] [place] [address] 08853- 4831 Sep, History of CVA with residual deficit I69.30 [facility] [id number] [place] [address] 05835- 5157 Sep, [facility] [address] [place] [address] 46868- 4468 Sep, [facility] [id number] [place] [address] 03578- 4492 Sep, Back pain M54.9 [facility] [address] [place] [address] 45935- 2467 Sep, Seizure disorder G40.909 [facility] [id number] [place] [address] 77695- 1626 Aug, Back pain M54.9 [facility] [address] [place] [address] 95737- 6745 Aug, Seizure disorder G40.909 [facility] [address], [place] [address]- 9596 16 Aug, 2015 Back pain M54.9 [facility] [address] [place] [address] 45181 2546 14 Aug, 2015 Heart failure, unspecified I50.9 [facility] [address] [place] [address] 73539 2546 14 Aug, 2015 Medication monitoring encounter Z51.81 [facility] [id number] [place] [address] 24205- 5126 15 Jul, 2015 [facility] [id number] [place] [address] 22874- 3616 09 Jul, 2015 Seizure disorder G40.909 [facility] [address] [place] [address] 48156- 1916 05 Jul, 2015 Back pain M54.9 [facility] [address] [place] [address] 88403- 7616 Jun, [facility] [address] [place] [address] 58736- 1716 Jun, [facility] [id number] [place] [address] 68237- 0827 Jun, Mental status change R41.82 ; History of CVA with residual deficit I69.30 ; Back pain M54.9 and Seizure disorder G40.909 [facility] [address], [place] [address]- 6656 Jun, [facility] [address], [place] [address]- 2546 May, [facility] [address] [place] [address] 49002- 2546 Apr, [facility] [address], [place] [address]- 7026 Apr, Medication monitoring encounter Z51.81 [place] [id number] [id number] [place] [address]- 5028 Mar, Vomiting R11.10 [facility] [address] [id number] [place] [address]- 8326 Mar, [facility] [address] [id number] [place] [address]- 6796 Feb, [facility] [address] [id number] [place] [address]- 9682 Feb, UTI (urinary tract infection) 599.0 [facility] [address] [id number] [place] [address]- 0616 Jan, [facility] [address] [id number] [place] [address]- 8166 Jan, [facility] [address] [id number] [place] [address]- 5236 Jan, [facility] [address] [id number] [place] [address]- 2537 Dec, [facility] [address] [id number] [place] [address]- 8145 Dec, [facility] [address] [id number] [place] [address]- 8516 Dec, [facility] [address] [id number] [place] [address]- 1286 Dec, [facility] [address] [id number] [place] [address] 2546 Nov, UNKNOWN Nov, [facility] [address] [id number] [place] [address]- 2546 October, [facility] [address] [id number] [place] [address] 2546 Sep, [facility] [address] [id number] [place] [address]- 6766 Sep, [facility] [place] [facility] [address] [id number] [place] [address]- 4441 Aug, [facility] [place] [facility] [address] [id number] [place] [address] Aug, [facility] [place] [facility] [address] [id number] [place] [address] Jul, [facility] [place] [facility] [address] [id number] [place] [address] Jul, [facility] [place] [facility] [address] [id number] [place] [address] Jul, [facility] [place] [facility] [address] [id number] [place] [address] Jul, [facility] [place] [facility] [address] [id number] [place] [address] Jul, [facility] [place] [facility] [address] [id number] [place] [address] Jun, [facility] [place] [facility] [address] [id number] [place] [address] Jun, [facility] [place] [facility] [address] [id number] [place] [address] Jun, [facility] [place] [facility] [address] [id number] [place] [address] Jun, [facility] [place] [facility] [address] [id number], [place] [address] Jun, [facility] [place] [facility] [address] [id number] [place] [address] Jun, [facility] [place] [facility] [address] [id number] [place] [address] Jun, [facility] [place] [facility] [address] [id number], [place] [address] Jun, [facility] [place] [facility] [address] [id number] [place] [address]- 1202 Jun, [facility] [place] [facility] [address] [id number] [place] [address] 7600 Jun, [facility] [place] [facility] [address] [id number] [place] [address]- 7806 Jun, [facility] [place] [facility] [address] [id number] [place] [address]- 9438 Jun, [facility] [place] [facility] [address] [id number] [place] [address]- 3232 Jun, [facility] [place] [facility] [address] [id number] [place] [address]- 1282 Jun, [facility] [place] [facility] [address] [id number] [place] [address]- 0617 Jun, [facility] [place] [facility] [address] [id number] [place] [address]- 2810 Jun, [facility] [place] [facility] [address] [id number] [place] [address]- 0792 Jun, [facility] [place] [facility] [address] [id number] [place] [address]- 2682 Jun, [facility] [place] [facility] [address] [id number] [place] [address]- 3670 May, [facility] [place] [facility] [address] [id number] [place] [address]- 5679 May, [facility] [place] [facility] [address] [id number] [place] [address]- 2107 30 May, 2014 [facility] [place] [facility] [address] [id number] [place] [address]- 2383 May, [facility] [place] [facility] [address] [id number] [place] [address]- 0458 19 May, 2014 [facility] [place] [facility] [address] [id number] [place] [address]- 5719 16 May, 2014 [facility] [place] [facility] [address] [id number] [place] [address]- 6251 16 May, 2014 [facility] [address] [id number] [place] [address]- 0064 May, [facility] [place] [facility] [address] [id number] [place] [address]- 0395 May, [facility] [address] [id number] May, [facility] [place] [facility] [address] [id number] [place] [address]- 6906 May, [facility] [address] [id number] [place] [address]- 9855 May, [facility] [place] [facility] [address] [id number] [place] [address] 3324 May, [facility] [address] [id number] [place] [address]- 6589 Apr, [facility] [place] [facility] [address] [id number] [place] [address]- 6375 Apr, [facility] [place] [facility] [address] [id number] [place] [address]- 6651 Apr, [facility] [place] [facility] [address] [id number] [place] [address]- 5685 Apr, [facility] [place] [facility] [address] [id number] [place] [address]- 8564 Apr, [facility] [place] [facility] [address] [id number] [place] [address]- 6513 Apr, [facility] [place] [facility] [address] [id number] [place] [address]- 8274 Mar, [facility] [place] [facility] [address] [id number] [place] [address]- 9952 Mar, [facility] [place] [facility] [address] [id number] [place] [address]- 1692 Mar, [facility] [place] [facility] [address] [id number] [place] [address]- 8221 Mar, [facility] [address] [id number] [place] [address]- 8310 Mar, [facility] [place] [facility] [address] [id number] [place] [address]- 4442 Mar, [facility] [place] [facility] [address] [id number] [place] [address]- 9427 Feb, [facility] [address] [id number] [place] [address]- 4205 24 Feb, 2014 [facility] [address] [id number] [place] [address]- 7137 Feb, [facility] [address] [id number] [place] [address]- 9247 Feb, [facility] [address] [id number] [place] [address]- 1425 Feb, [facility] [address] [id number] [place] [address]- 2544 Feb, [facility] [address] [id number] [place] [address]- 4115 Feb, [facility] [address] [id number] [place] [address]- 3000 Feb, [facility] [address] [id number] [place] [address]- 254 Feb, [facility] [address] [id number] [place] [address]- 2548 Feb, [facility] [address] [id number] Feb, [facility] [place] [facility] [address] [id number] [place] [address]- 2543 Feb, [facility] [address] [id number] [place] [address]- 3202 Jan, [facility] [place] [facility] [address] [id number] [place] [address]- 7626 Jan, [facility] [place] [facility] [address] [id number] [place] [address]- 2628 Dec, [facility] [place] [facility] [address] [id number] [place] [address]- 9581 Dec, [facility] [place] [facility] [address] [id number] [place] [address]- 1911 Dec, [facility] [place] [facility] [address] [id number] [place] [address]- 7795 Dec, [facility] [place] [facility] [address] [id number] [place] [address]- 9495 Dec, [facility] [place] [facility] [address] [id number] [place] [address]- 9883 Dec, [facility] [place] [facility] [address] [id number] [place] [address]- 0058 Dec, [facility] [place] [facility] [address] [id number] [place] [address]- 5097 Dec, [facility] [place] [facility] [address] [id number] [place] [address]- 5831 Dec, [facility] [place] [facility] [address] [id number] [place] [address]- 5153 Dec, [facility] [place] [facility] [address] [id number] [place] [address]- 5843 Nov, [facility] [place] [facility] [address] [id number] [place] [address]- 6915 Nov, [facility] [place] [facility] [address] [id number] [place] [address]- 9749 Nov, [facility] [place] [facility] [address] [id number] [place] [address]- 6765 Nov, [facility] [place] [facility] [address] [id number] [place] [address]- 6794 Nov, [facility] [place] [facility] [address] [id number] [place] [address]- 1351 Nov, [facility] [place] [facility] [address] [id number] [place] [address]- 8120 Nov, [facility] [place] [facility] [address] [id number] [place] [address]- 9475 Nov, [facility] [place] [facility] [address] [id number] [place] [address]- 7372 Nov, [facility] [place] [facility] [address] [id number] [place] [address]- 9557 Nov, [facility] [place] [facility] [address] [id number] [place] [address]- 4631 Nov, [facility] [place] [facility] [address] [id number] [place] [address]- 6659 Nov, [facility] [place] [facility] [address] [id number] [place] [address]- 9503 Nov, [facility] [place] [facility] [address] [id number] [place] [address]- 6849 Nov, [facility] [place] [facility] [address] [id number] [place] [address]- 1957 October, [facility] [place] [facility] [address] [id number] [place] [address]- 3464 October, [facility] [place] [facility] [address] [id number] [place] [address]- 1966 October, [facility] [place] [facility] [address] [id number] [place] [address]- 1242 October, [facility] [place] [facility] [address] [id number] [place] [address]- 8369 October, [facility] [place] [facility] [address] [id number] [place] [address]- 7080 October, [facility] [place] [facility] [address] [id number] [place] [address]- 5417 October, [facility] [place] [facility] [address] [id number] [place] [address]- 1977 October, [facility] [place] [facility] [address] [id number] [place] [address]- 3638 October, [facility] [place] [facility] [address] [id number] [place] [address]- 9873 October, [facility] [place] [facility] [address] [id number] [place] [address]- 3476 Sep, [facility] [place] [facility] [address] [id number] [place] [address]- 9635 Sep, [facility] [place] [facility] [address] [id number] [place] [address]- 7413 Sep, [facility] [place] [facility] [address] [id number] [place] [address]- 1144 Sep, [facility] [place] [facility] [address] [id number] [place] [address]- 4767 Sep, [facility] [place] [facility] [address] [id number] [place] [address]- 2443 Sep, [facility] [place] [facility] [address] [id number] [place] [address]- 1378 Sep, [facility] [place] [facility] [address] [id number] [place] [address]- 2469 Sep, [facility] [place] [facility] [address] [id number] [place] [address]- 1307 Sep, [facility] [place] [facility] [address] [id number] [place] [address]- 4626 Sep, [facility] [place] [facility] [address] [id number] [place] [address]- 0210 Aug, [facility] [place] [facility] [address] [id number] [place] [address]- 8457 Aug, [facility] [place] [facility] [address] [id number] [place] [address]- 1187 Aug, [facility] [place] [facility] [address] [id number] [place] [address]- 7415 Aug, [facility] [place] [facility] [address] [facility] [id number] [place] [address]- 9925 Aug, [facility] [place] [facility] [address] [id number] [place] [address]- 5927 Aug, [facility] [place] [facility] [address] [id number] [place] [address]- 0129 Aug, [facility] [place] [facility] [address] [facility] [id number] [place] [address]- 4501 Aug, [facility] [place] [facility] [address] [facility] [id number] [place] [address]- 6163 Aug, [facility] [place] [facility] [address] [id number] [place] [address]- 7338 Jul, [facility] [place] [facility] [address] [id number] [place] [address]- 9326 Jul, [facility] [place] [facility] [address] [facility] [id number] [place] [address]- 5067 Jul, [facility] [place] [facility] [address] [id number] [place] [address]- 1913 Jul, [facility] [place] [facility] [address] [id number] [place] [address]- 7811 Jul, [facility] [place] [facility] [address] [id number] [place] [address]- 6124 Jul, [facility] [place] [facility] [address] [id number] [place] [address]- 9378 Jul, [facility] [place] [facility] [address] [facility] [id number] [place] [address]- 4929 Jul, [facility] [place] [facility] [address] [id number] [place] [address]- 0425 Jul, [facility] [place] [facility] [address] [id number] [place] [address]- 8716 Jul, [facility] [place] [facility] [address] [id number] [place] [address]- 3106 Jul, [facility] [place] [facility] [address] [id number] [place] [address]- 3315 Jul, [facility] [place] [facility] [address] [id number] [place] [address]- 5094 Jul, [facility] [place] [facility] [address] [id number] [place] [address]- 4514 Jul, [facility] [place] [facility] [address] [id number] [place] [address]- 6742 Jul, [facility] [place] [facility] [address] [id number] [place] [address]- 3880 Jul, [facility] [place] [facility] [address] [id number] [place] [address]- 3463 Jun, [facility] [place] [facility] [address] [id number] [place] [address]- 0077 Jun, [facility] [place] [facility] [address] [id number] [place] [address]- 9867 Jun, [facility] [place] [facility] [address] [id number] [place] [address]- 2447 Jun, [facility] [place] [facility] [address] [id number] [place] [address]- 1164 Jun, [facility] [place] [facility] [address] [id number] [place] [address]- 5895 Jun, [facility] [place] [facility] [address] [id number] [place] [address]- 7513 May, [facility] [place] [facility] [address] [id number] [place] [address]- 8159 May, [facility] [address] [id number] [place] [address]- 4665 May, [facility] [place] [facility] [address] [id number] [place] [address]- 8727 May, [facility] [address] [id number] [place] [address]- 8183 Apr, [facility] [place] [facility] [address] [id number] [place] [address]- 0427 Apr, [facility] [place] [facility] [address] [id number] [place] [address]- 3702 Apr, [facility] [place] [facility] [address] [id number] [place] [address]- 3107 Apr, [facility] [address] [id number] [place] [address]- 2147 Apr, [facility] [place] [facility] [address] [id number] [place] [address]- 3720 Apr, [facility] [place] [facility] [address] [id number] [place] [address]- 0819 Apr, [facility] [place] [facility] [address] [id number] [place] [address]- 8665 Apr, [facility] [place] [facility] [address] [id number] [place] [address]- 5698 Apr, [facility] [place] [facility] [address] [id number], [place] [address]- 2687 Apr, [facility] [place] [facility] [address] [id number] [place] [address]- 6691 Apr, [facility] [place] [facility] [address] [id number] [place] [address]- 0186 Apr, [facility] [place] [facility] [address] [id number], [place] [address]- 6440 Mar, [facility] [place] [facility] [address] [id number] [place] [address]- 0367 28 Mar, 2012 [facility] [place] [facility] [address] [id number] [place] [address]- 3281 16 Mar, 2013 [facility] [place] [facility] [address] [id number] [place] [address]- 2889 16 Mar, 2013 [facility] [place] [facility] [address] [id number] [place] [address]- 8442 15 Mar, 2013 [facility] [place] [facility] [address] [id number] [place] [address]- 8643 15 Mar, 2013 [facility] [place] [facility] [address] [id number] [place] [address]- 5481 27 Feb, 2012 [facility] [place] [facility] [address] [id number] [place] [address]- 7954 25 Feb, 2013 [facility] [place] [facility] [address] [id number] [place] [address]- 2442 25 Feb, 2012 [facility] [place] [facility] [address] [id number] [place] [address]- 8440 23 Feb, 2013 [facility] [place] [facility] [address] [id number] [place] [address]- 0241 17 Feb, 2013 [facility] [place] [facility] [address] [id number] [place] [address]- 2548 10 Feb, 2013 [facility] [place] [facility] [address] [id number] [place] [address]- 2542 04 Feb, 2012 [facility] [place] [facility] [address] [id number] [place] [address]- 2545 30 Jan, 2013 [facility] [place] [facility] [address] [id number] [place] [address]- 2542 20 Jan, 2013 [facility] [place] [facility] [address] [id number] [place] [address]- 0783 15 Jan, 2013 [facility] [place] [facility] [address] [id number] [place] [address]- 2346 Jan, [facility] [place] [facility] [address] [id number] [place] [address]- 7464 Jan, [facility] [place] [facility] [address] [id number] [place] [address]- 9146 Jan, [facility] [place] [facility] [address] [id number] [place] [address]- 7856 Jan, [facility] [place] [facility] [address] [id number] [place] [address]- 9213 Dec, [facility] [place] [facility] [address] [id number] [place] [address]- 7046 Dec, [facility] [place] [facility] [address] [id number] [place] [address]- 2550 Dec, [facility] [place] [facility] [address] [id number] [place] [address]- 6737 Dec, [facility] [place] [facility] [address] [id number] [place] [address]- 1650 Dec, [facility] [place] [facility] [address] [id number] [place] [address]- 6223 Dec, [facility] [place] [facility] [address] [id number] [place] [address]- 7510 Nov, [facility] [place] [facility] [address] [id number] [place] [address]- 6287 Nov, [facility] [place] [facility] [address] [id number] [place] [address]- 9957 Nov, [facility] [place] [facility] [address] [id number] [place] [address]- 7017 Nov, [facility] [place] [facility] [address] [id number] [place] [address]- 2904 October, [facility] [place] [facility] [address] [id number] [place] [address]- 5232 October, [facility] [place] [facility] [address] [id number] [place] [address]- 3966 October, [facility] [address] [id number] [place] [address]- 5881 October, [facility] [address] [id number] [place] [address]- 3320 30 Sep, 2012 [facility] [address] [id number] [place] [address]- 1582 Sep, [facility] [address] [id number] [place] [address]- 7725 16 Sep, 2012 [facility] [address] [id number] [place] [address]- 9178 Sep, [facility] [address] [id number] [place] [address]- 3267 Sep, [facility] [address] [id number] [place] [address]- 7755 Sep, [facility] [address] [id number] [place] [address]- 5555 Sep, [facility] [address] [id number] [place] [address]- 2113 Sep, [facility] [address] [id number] [place] [address]- 2440 Aug, [facility] [address] [id number] [place] [address]- 0820 Aug, [facility] [address] [id number] [place] [address]- 2540 05 Aug, 2012 [facility] [address] [id number] [place] [address]- 8675 18 Jul, 2012 [facility] [address] [id number] [place] [address]- 2546 08 Jul, 2012 [facility] [address] [id number] [place] [address]- 1948 07 Jul, 2012 [facility] [place] [facility] [address] [id number] [place] [address]- 4509 06 Jul, 2012 [facility] [place] [facility] [address] [id number] [place] [address]- 4386 05 Jul, 2012 [facility] [place] [facility] [address] [id number] [place] [address]- 4764 Jun, [facility] [place] [facility] [address] [id number] [place] [address] Jun, [facility] [place] [facility] [address] [id number] [place] [address] Jun, [facility] [place] [facility] [address] [id number] [place] [address] May, [facility] [place] [facility] [address] [id number] [place] [address] May, [facility] [place] [facility] [address] [id number] [place] [address] May, [facility] [place] [facility] [address] [id number] [place] [address]39 May, [facility] [place] [facility] [address] [id number] [place] [address] May, [facility] [place] [facility] [address] [id number] [place] [address] May, [facility] [place] [facility] [address] [id number] [place] [address] May, [facility] [place] [facility] [address] [id number] [place] [address] Apr, [facility] [place] [facility] [address] [id number] [place] [address] Apr, [facility] [place] [facility] [address] [id number] [place] [address]696 Apr, [facility] [place] [facility] [address] [id number] [place] [address] 46[address] Apr, [facility] [place] [facility] [address] [id number] [place] [address] 53[address] Apr, [facility] [place] [facility] [address] [id number] [place] [address] 2496 Apr, [facility] [place] [facility] [address] [id number] [place] [address]- [address] Apr, [facility] [place] [facility] [address] [id number] [place] [address]- [address] Apr, [facility] [place] [facility] [address] [id number] [place] [address] Apr, [facility] [place] [facility] [address] [id number] [place] [address]- 8532 Apr, [facility] [place] [facility] [address] [facility] [id number] [place] [address] Apr, [facility] [place] [facility] [address] [id number] [place] [address] 89[address] Mar, [facility] [place] [facility] [address] [id number] [place] [address]- 5863 Mar, [facility] [place] [facility] [address] [facility] [id number] [place] [address]- [address]273 Mar, [facility] [place] [facility] [address] [id number] [place] [address] 2832 Mar, [facility] [place] [facility] [address] [id number], [place] [address] Mar, [facility] [place] [facility] [address] [id number] [place] [address]- 3662 Mar, [facility] [place] [facility] [address] [facility] [id number] [place] [address] 7921 Mar, [facility] [place] [facility] [address] [id number], [place] [address] Mar, [facility] [place] [facility] [address] [id number] [place] [address] 8821 16 Mar, 2012 [facility] [place] [facility] [address] [id number] [place] [address]- 0294 16 Mar, 2012 [facility] [place] [facility] [address] [id number] [place] [address]- 7116 04 Mar, 2012 [facility] [place] [facility] [address] [id number] [place] [address], [place] [address]- [address] 2011 [facility] [place] [facility] [address] [id number] [place] [address] 27 Feb, 2011 [facility] [place] [facility] [address] [id number] [place] [address]- 6283 27 Feb, 2011 [facility] [place] [facility] [address] [id number] [place] [address] 26 Feb, 2011 [facility] [place] [facility] [address] [id number] [place] [address] 24 Feb, 2012 [facility] [place] [facility] [address] [id number] [place] [address]- 1136 19 Feb, 2012 [facility] [place] [facility] [address] [id number] [place] [address] 2338 18 Feb, 2012 [facility] [place] [facility] [address] [id number] [place] [address]- 3579 18 Feb, 2012 [facility] [place] [facility] [address] [id number] [place] [address]- 8541 18 Feb, 2012 [facility] [place] [facility] [address] [id number] [place] [address]- [address]18 30 Jan, 2012 [facility] [place] [facility] [address] [id number] [place] [address]- 0742 Jan, [facility] [place] [facility] [address] [id number] [place] [address] 3649 Jan, [facility] [place] [facility] [address] [id number] [place] [address]- 7774 Jan, [facility] [place] [facility] [address] [id number] [place] [address] 8796 Dec, [facility] [place] [facility] [address] [id number] [place] [address]- [address]166 Dec, [facility] [place] [facility] [address] [id number] [place] [address]- 2646 Dec, [facility] [place] [facility] [address] [id number] [place] [address]- 5197 Dec, [facility] [place] [facility] [address] [id number] [place] [address]- 8693 Dec, [facility] [place] [facility] [address] [id number] [place] [address]- 7110 Dec, [facility] [place] [facility] [address] [id number] [place] [address]- 3806 Dec, [facility] [place] [facility] [address] [id number] [place] [address]- 9801 Dec, [facility] [place] [facility] [address] [id number] [place] [address]- 8417 Dec, [facility] [place] [facility] [address] [id number] [place] [address]- 2972 Dec, [facility] [place] [facility] [address] [id number] [place] [address]- 6301 Dec, [facility] [place] [facility] [address] [id number] [place] [address]- [address]37 Dec, [facility] [place] [facility] [address] [id number] [place] [address]- 2401 Dec, [facility] [place] [facility] [address] [id number] [place] [address]- 9647 Dec, [facility] [place] [facility] [address] [id number] [place] [address]- 6961 Nov, [facility] [place] [facility] [address] [id number] [place] [address]- 8099 14 Nov, 2011 [facility] [address] [id number] [place] [address]- 7910 11 Nov, 2011 [facility] [address] [id number] [place] [address]- 9591 07 Nov, 2011 [facility] [address] [id number] [place] [address]- 7084 07 Nov, 2011 [facility] [address] [id number] [place] [address]- 2766 07 Nov, 2011 [facility] [address] [id number] [place] [address]- 6690 30 Oct, 2011 [facility] [address] [id number] [place] [address]- 0315 October, [facility] [address] [id number] [place] [address]- 2971 October, [facility] [address] [id number] [place] [address]- 8526 October, [facility] [address] [id number] [place] [address]- 7041 19 Sep, 2011 [facility] [address] [id number] [place] [address]- 1655 17 Sep, 2011 [facility] [address] [id number] [place] [address] 13 Sep, 2011 [facility] [address] [id number] [place] [address] 09 Sep, 2011 [facility] [place] [facility] [address] [id number] [place] [address] 03 Sep, 2011 [facility] [address] [id number] [place] [address] Aug, [facility] [address] [id number] [place] [address] Aug, [facility] [address] [id number] [place] [address] Aug, [facility] [address] [id number] [place] [address] 20 Aug, 2011 [facility] [address] [facility] [id number] [place] [address] 13 Aug, 2011 [facility] [address] [id number] [place] [address] 02 Aug, 2011 [facility] [address] [id number] [place] [address] Aug, [facility] [address] [id number] [place] [address] 16 Jul, 2011 [facility] [address] [facility] [id number] [place] [address] 16 Jul, 2011 [facility] [address] [facility] [id number] [place] [address] 15 Jul, 2011 [facility] [address] [facility] [id number] [place] [address] 9692 15 Jul, 2011 [facility] [address] [id number] [address] 24 Jun, [address] [id number] Jun, [facility] [address] [facility] [id number], [place] [address] Jun, [facility] [address] [facility] [id number], [place] [address] Jun, [facility] [address] [facility] [id number], [place] [address] Jun, [facility] [address] [facility] [id number], [place] [address] 04 Jun, 2011 [facility] [address] [facility] [id number], [place] [address] Jun, [facility] [place] [facility] [address] [id number] [place] [address] Jun, [facility] [place] [facility] [address] [id number] [place] [address] May, [facility] [place] [facility] [address] [id number] [place] [address] May, [facility] [place] [facility] [address] [id number] [place] [address] 4827 May, [facility] [place] [facility] [address] [id number] [place] [address] May, [facility] [place] [facility] [address] [id number] [place] [address] 5967 May, [facility] [place] [facility] [address] [id number] [place] [address] May, [facility] [place] [facility] [address] [id number] [place] [address] May, [facility] [place] [facility] [address] [id number] [place] [address] 45[address] Apr, [facility] [place] [facility] [address] [id number] [place] [address] 4087 Apr, [facility] [place] [facility] [address] [id number], [place] [address] Apr, [facility] [place] [facility] [address] [id number] [place] [address] Mar, [facility] [place] [facility] [address] [id number] [place] [address] 20 Mar, 2011 [facility] [place] [facility] [address] [id number] [place] [address] 2854 14 Mar, 2011 [facility] [place] [facility] [address] [id number] [place] [address]321 11 Mar, 2011 [facility] [place] [facility] [address] [id number] [place] [address] 10 Mar, 2011 [facility] [address] [id number] [place] [address]94 10 Mar, 2011 [facility] [place] [facility] [address] [id number] [place] [address]- 1096 10 Mar, 2011 [facility] [address] [id number] [place] [address] 6052 11 Jan, 2011 [facility] [address] [id number] [place] [address]49 27 May, 2010 [facility] [address] [id number] [place] [address] 5799 21 May, 2010 [facility] [address] [id number] [place] [address] 0681 13 May, 2010 [facility] [address] [id number] [place] [address] 97[address] 13 May, 2010 [facility] [address] [id number] [place] [address] 9347 10 May, 2010 [facility] [address] [id number] [place] [address] 06 May, 2010 [facility] [address] [id number] [place] [address] 2051 29 Apr, 2010 [facility] [place] [facility] [address] [id number] [place] [address] 254 26 Apr, 2010 [facility] [address] [id number] [place] [address] 2547 19 Apr, 2010 [facility] [place] [facility] [address] [id number] [place] [address] 7736 18 Apr, 2010 [facility] [place] [facility] [address] [id number] [place] [address] 2548 15 Apr, 2010 [facility] [place] [facility] [address] [id number] [place] [address] 27[address] Apr, [facility] [address] [id number], [place] [address] Apr, [facility] [address], [place] [address] Apr, [facility] [address], [place] [address] Apr, [facility] [address], [place] [address] Apr, [facility] [address], [place] [address] Mar, [facility] [id number] [place] [address] Mar, [facility] [address], [place] [address] Mar, [facility] [address], [place] [address] Mar, [facility] [address], [place] [address] 164[address] Mar, [facility] [address], [place] [address] Dec, [facility] [address], [place] [address] Nov, IMMUNIZATIONS No Known Immunizations SOCIAL HISTORY Never Assessed REASON FOR VISIT Questions PLAN OF CARE VITAL SIGNS MEDICATIONS Medication Instructions Dosage Frequency Start Date End Date Duration Status Zofran ODT 4 mg Orally every 8 hrs 1 tablet on the tongue and allow to dissolve 8h Active RESULTS No Results PROCEDURES No Known [...] surgery and skin graft, cholecysectomy Hospitalization History [facility] 12/2016 Hospitalization History [facility] 08/2017
--- OUTSIDE RECORDS SUMMARY | 2018-02-04 13:13 | XMS REPORT ---
Author Author NAHOMY BETH Organization [facility] Address [address] [place] [address] Care Team Providers Care Postulant Name Role Phone NAHOMY BETH Unavailable PROBLEMS Type Condition ICD9-CM Code [id number] Code Onset Dates Condition Status SNOMED Code Problem History of colon polyps Z86.010 Active 191992062 Problem Factitious disorder imposed on self, recurrent episode F68.10 Active 95381387 Problem Anemia, unspecified type D64.9 Active 826742870 Problem Allergic state, subsequent encounter T78.40XD Active 331554533 Problem Unspecified psychosis not due to a substance or known physiological condition F29 Active 95285059 Problem Age-related osteoporosis without current pathological fracture M81.0 Active 08855694 Problem Personality disorder F60.9 Active 43713640 Problem Iron deficiency anemia, unspecified iron deficiency anemia type D50.9 Active 71731224 Problem Anxiety F41.9 Active 45081316 Problem History of CVA with residual deficit I69.30 Active 668973860 Problem Insomnia, unspecified type G47.00 Active 011586665 Problem Perennial allergic rhinitis, unspecified allergic rhinitis trigger J30.89 Active 750308510 Problem Seizure disorder G40.909 Active 799868204 Problem Chronic kidney disease, unspecified stage N18.9 Active 414511329 Problem Back pain M54.9 Active 910040676 Problem Gastroesophageal reflux disease without esophagitis K21.9 Active 597250846 ALLERGIES No Information ENCOUNTERS Encounter Location Date Diagnosis [facility] [id number], [place] [address] Jan, [facility] [address], [place] [address] Jan, [facility] [id number], [place] [address] 2[address] Dec, [facility] [address], [place] [address] Dec, Unspecified psychosis not due to a substance or known physiological condition F29 ; Personality disorder F60.9 and Factitious disorder imposed on self, recurrent episode F68.10 [facility] [id number] [place] [address] 67372- 1512 Dec, [facility] [id number] [place] [address] 23696- 3923 Dec, Back pain M54.9 [facility] [id number] [place] [address] 94734- 1600 Dec, Factitious disorder imposed on self, recurrent episode F68.10 ; Personality disorder F60.9 ; Insomnia, unspecified type G47.00 and Anxiety F41.9 [facility] [id number] [place] [address] 27337- 5086 Nov, Unspecified psychosis not due to a substance or known physiological condition F29 ; Personality disorder F60.9 and Factitious disorder imposed on self, recurrent episode F68.10 [facility] [id number] [place] [address] 15356- 3404 Nov, Back pain M54.9 [facility] [address], [place] [address] 2802 Nov, Unspecified psychosis not due to a substance or known physiological condition F29 ; Personality disorder F60.9 and Factitious disorder imposed on self, recurrent episode F68.10 [facility] [address], [place] [address] 5786 October, [facility] [id number] [place] [address] 00312- 6142 October, [facility] [id number] [place] [address] 06108- 9093 October, Unspecified psychosis not due to a substance or known physiological condition F29 ; Personality disorder F60.9 and Factitious disorder imposed on self, recurrent episode F68.10 [facility] [id number] [place] [address] 34109- 5145 October, Back pain M54.9 [facility] [id number] [place] [address] 24275- 5906 October, Seizure disorder G40.909 ; Back pain M54.9 and Allergic state, subsequent encounter T78.40XD [facility] [id number] [place] [address] 66104- 4027 October, [facility] [id number] [place] [address] 16332- 9139 Sep, Back pain M54.9 [facility] [id number] [place] [address] 29984- 9086 Sep, Unspecified psychosis not due to a substance or known physiological condition F29 ; Personality disorder F60.9 and Factitious disorder imposed on self, recurrent episode F68.10 [facility] [id number] [place] [address] 84427- 1459 Sep, [facility] [id number] [place] [address] 84028- 1697 Sep, [facility] [id number] [place] [address] 76798- 4268 Sep, [facility] [id number] [place] [address] 79732- 9460 Sep, [facility] [id number] [place] [address] 34076- 8432 Aug, [facility] [id number] [place] [address] 89683- 3383 Aug, Back pain M54.9 [facility] [id number] [place] [address] 71876- 4052 Aug, Factitious disorder imposed on self, recurrent episode F68.10 ; Personality disorder F60.9 ; Insomnia, unspecified type G47.00 and Anxiety F41.9 [facility] [address] [address] [address] Aug, Back pain M54.9 ; Iron deficiency anemia, unspecified iron deficiency anemia type D50.9 ; Chronic kidney disease, unspecified stage N18.9 and Breast cancer screening Z12.31 [facility] [id number] [place] [address] [id number] Jul, Back pain M54.9 [facility] [id number] [place] [address] [id number] Jul, [facility] [id number] [place] [address] [id number] Jul, [facility] [id number] [place] [address] [id number] Jun, Back pain M54.9 [facility] [id number] [place] [address] [id number] Jun, [facility] [id number] [place] [address] [id number] Jun, Back pain M54.9 [facility] [id number] [place] [address] 68046104- 4066 Jun, Back pain M54.9 ; Seizure disorder G40.909 and Age-related osteoporosis without current pathological fracture M81.0 [facility] [id number] [id number] May, [facility] [id number] [place] [address] [id number]- 6224 May, Back pain M54.9 [facility] [address] [address] [address] Apr, Back pain M54.9 ; Encounter for immunization Z23 ; Gastroesophageal reflux disease without esophagitis K21.9 ; Age-related osteoporosis without current pathological fracture M81.0 and Chronic pruritus L29.9 [facility] [address], [place] [address] 3654 16 Apr, 2017 History of CVA with residual deficit I69.30 [facility] [id number] [place] [address] 93216- 0101 16 Apr, 2017 Factitious disorder imposed on self, recurrent episode F68.10 and Personality disorder F60.9 [facility] [id number] [place] [address] [id number] 08 Apr, 2017 Back pain M54.9 [facility] [id number] [place] [address] 05295- 8263 Mar, Factitious disorder imposed on self, recurrent episode F68.10 [facility] [id number] [place] [address] 67248- 2442 Mar, [facility] [id number] [place] [address] [id number] Mar, [facility] [id number] [place] [address] [id number] Mar, Back pain M54.9 [facility] [id number] [place] [address] 70541- 2369 05 Mar, 2017 Back pain M54.9 ; Seizure disorder G40.909 and Age-related osteoporosis without current pathological fracture M81.0 [facility] [id number] [place] [address] 23457- 4522 Feb, History of CVA with residual deficit I69.30 [facility] [id number] [place] [address] 65312- 6048 19 Feb, 2017 Factitious disorder imposed on self, recurrent episode F68.10 and Personality disorder F60.9 [facility] [id number] [place] [address] 19403- 0501 15 Feb, 2017 Back pain M54.9 [facility] [address], [place] [address]- 0781 06 Feb, 2017 [facility] [address], [place] [address]- 6886 Jan, [facility] [address] [place] [id number] Jan, Age- related osteoporosis without current pathological fracture M81.0 and Allergic state, subsequent encounter T78.40XD [facility] [address], [place] [address]- 3253 Jan, Factitious disorder imposed on self, recurrent episode F68.10 and Personality disorder F60.9 [facility] [address], [place] [address]- 7224 Dec, Back pain M54.9 [facility] [id number] [place] [address] 05391- 6592 Dec, Personality disorder F60.9 and Factitious disorder imposed on self, recurrent episode F68.10 [facility] [id number] [place] [address] [id number] Dec, Back pain M54.9 [facility] [id number] [place] [address] [id number] Dec, [facility] [id number] [place] [address] [id number] Dec, [facility] [id number], [place] [address]- 6002 Dec, [facility] [address], [place] [address]- 3775 Nov, [facility] [id number], [place] [address]- 4920 Nov, Back pain M54.9 ; Anemia, unspecified type D64.9 and History of colon polyps Z86.010 [facility] [address], [place] [address]- 1334 Nov, Back pain M54.9 [facility] [id number] [id number] October, Back pain M54.9 [facility] [address] [place] [id number] October, Back pain M54.9 and Gastroesophageal reflux disease without esophagitis K21.9 [facility] [id number] [id number] Sep, [facility] [address], [place] [address]- 4620 Sep, [facility] [id number] [place] [address] 39238- 9153 Sep, [facility] [id number] [place] [address] 14017- 9561 Sep, [facility] [id number] [place] [address] 30653- 9723 Sep, [facility] [id number] [place] [address] 68762- 1002 Sep, Seizure disorder G40.909 [facility] [address], [place] [address]- 2533 Sep, Back pain M54.9 [facility] [id number] [place] [address] 50134- 5494 Sep, [facility] [address], [place] [address]- 2731 Aug, Back pain M54.9 [facility] [address], [place] [address]- 1717 Aug, Seizure disorder G40.909 [facility] [address] [id number] [id number] Aug, [facility] [id number] [id number] 16 Aug, 2016 Back pain M54.9 [facility] [address] [id number] [id number] Aug, Back pain M54.9 [facility] [id number] [id number] Aug, Back pain M54.9 [facility] [address] [place] [id number] Jul, Weakness R53.1 [facility] [id number] [place] [address] 89860- 1885 Jul, Seizure disorder G40.909 [facility] [id number] [place] [address] 35347- 0074 Jul, [facility] [id number] [place] [address] 20832- 6811 Jul, Breast cancer screening Z12.39 [facility] [id number] [place] [address] 01484- 1883 Jul, [facility] [id number] [place] [address] 05623- 9852 Jul, [facility] [id number] [place] [address] 61327- 1130 Jul, [facility] [id number] [place] [address] 16422- 3879 Jul, Seizure disorder G40.909 ; Fatigue, unspecified type R53.83 ; Perennial allergic rhinitis, unspecified allergic rhinitis trigger J30.89 and Chronic kidney disease, unspecified stage N18.9 [facility] [address], [place] [address]- 9408 Jul, [facility] [address], [place] [address]- 1052 Jul, Seizure disorder G40.909 [facility] [id number] [place] [address] 51373- 0169 Jun, [facility] [id number] [place] [address] 67599- 0907 Jun, [facility] [address] [place] [id number] Jun, Perennial allergic rhinitis, unspecified allergic rhinitis trigger J30.89 [facility] [id number] [place] [address] [id number] Jun, [facility] [id number] [place] [address] [phone]- 0157 Jun, Seizure disorder G40.909 [facility] [id number] [place] [address] [id number] Jun, [facility] [id number] [place] [address] [id number] May, [facility] [id number] [place] [address] 85279- 3625 May, [facility] [id number] [place] [address] 09943- 1176 May, [facility] [id number] [place] [address] 38438- 0404 May, [facility] [id number] [place] [address] 04218- 9271 May, History of CVA with residual deficit I69.30 [facility] [id number] [place] [address] 50316- 7907 May, [facility] [id number] [place] [address] 59279- 6493 May, [facility] [id number] [place] [address] 55626- 4243 May, [facility] [id number] [place] [address] 23197- 1029 May, Seizure disorder G40.909 [facility] [id number] [place] [address] 88097- 4849 May, [employer] [address] [place] [address] May, Back pain M54.9 and Seizure disorder G40.909 [facility] [address] [facility] [id number], [place] [address]- 3990 Apr, [facility] [address] [facility] [id number] [place] [address] 23335- 1619 Apr, Back pain M54.9 [facility] [address] [facility] [id number], [place] [address]- 5644 Mar, [employer] [address] [place] [address] Mar, Insomnia, unspecified type G47.00 [facility] [address] [facility] [id number], [place] [address]- 9354 Mar, [facility] [address] [facility] [id number] [place] [address] 50776- 3323 Feb, [facility] [id number] [place] [address] 14362- 1969 Feb, [facility] [address] [facility] [id number], [place] [address]- 8454 Feb, [facility] [address] [facility] [id number] [place] [address] 35389- 0469 Jan, [facility] [address] [facility] [id number], [place] [address]- 9207 Jan, [employer] [address] [place] [address] Jan, Seizure disorder G40.909 and Back pain M54.9 [facility] [address] [facility] [id number], [place] [address]- 3847 Dec, [facility] [address] [facility] [id number], [place] [address]- 5096 Dec, [facility] [address] [facility] [id number], [place] [address]- 1201 Dec, [facility] [address] [facility] [id number], [place] [address]- 7411 Nov, [facility] [id number] [place] [address] 96228 2545 Nov, [facility] [id number] [place] [address] 28405- 6606 Nov, Back pain M54.9 [facility] [id number] [place] [address] 50524 2546 October, [facility] [id number] [place] [address] 95862 2546 October, Back pain M54.9 [facility] [id number] [place] [address] 42513- 1709 October, Seizure disorder G40.909 and B12 deficiency E53.8 [facility] [id number] [place] [address] 87999- 7868 Sep, History of CVA with residual deficit I69.30 [facility] [id number] [place] [address] 10253- 1585 Sep, [facility] [id number] [place] [address] 50633- 5652 Sep, [facility] [id number] [place] [address] 10924- 4074 Sep, Back pain M54.9 [facility] [id number] [place] [address] 81617- 8700 Sep, Seizure disorder G40.909 [facility] [id number] [place] [address] 28803 2546 Aug, Back pain M54.9 [facility] [id number] [place] [address] 63948 2546 Aug, Seizure disorder G40.909 [facility] [id number] [place] [address] 89035 2546 16 Aug, 2015 Back pain M54.9 [facility] [id number] [place] [address] 29028- 6103 14 Aug, 2015 Heart failure, unspecified I50.9 [facility] [id number] [place] [address] 73181- 0626 14 Aug, 2015 Medication monitoring encounter Z51.81 [facility] [id number] [place] [address] 81777- 3512 15 Jul, 2015 [facility] [address] 43867- 0487 Jul, Seizure disorder G40.909 [facility] [id number] [place] [address] 70960- 0776 Jul, Back pain M54.9 [facility] [id number] [place] [address] 94639- 9115 Jun, [facility] [id number] [place] [address] 82371- 8153 Jun, [facility] [id number] [place] [address] 50455- 5617 Jun, Mental status change R41.82 ; History of CVA with residual deficit I69.30 ; Back pain M54.9 and Seizure disorder G40.909 [facility] [id number] [place] [address] 20564- 2373 Jun, [facility] [id number] [place] [address] 42192- 0474 May, [facility] [id number] [place] [address] 38369- 8131 Apr, [facility] [id number] [place] [address] 68721- 1264 Apr, Medication monitoring encounter Z51.81 [facility] [id number] [place] [address] 81186- 2284 Mar, Vomiting R11.10 [facility] [address] 49737- 2504 Mar, [facility] [address] [id number] [place] [address] Feb, [facility] [address] [id number] [place] [address] Feb, UTI (urinary tract infection) 599.0 [facility] [address] [id number] [place] [address] Jan, [facility] [address] [id number] [place] [address] Jan, [facility] [address] [id number] [place] [address] Jan, [facility] [address] [id number] [place] [address] Dec, [facility] [address] [id number] [place] [address] Dec, [facility] [address] [id number] [place] [address] Dec, [facility] [address] [id number] [place] [address] Dec, [facility] [address] [id number] [place] [address] Nov, UNKNOWN Nov, [facility] [address] [id number] [place] [address] October, [facility] [address] [id number] [place] [address] Sep, [facility] [address] [id number] [place] [address] Sep, [facility] [address] [id number] [place] [address] Aug, [facility] [address] [id number] [place] [address] Aug, [facility] [place] [facility] [address] [id number] [place] [address] Jul, [facility] [place] [facility] [address] [id number] [place] [address] Jul, [facility] [place] [facility] [address] [id number] [place] [address] Jul, [facility] [place] [facility] [address] [id number] [place] [address]- 8880 Jul, [facility] [place] [facility] [address] [id number] [place] [address] Jul, [facility] [place] [facility] [address] [id number] [place] [address] 5[address] Jun, [facility] [place] [facility] [address] [id number] [place] [address] 1649 Jun, [facility] [place] [facility] [address] [id number] [place] [address] 0686 Jun, [facility] [place] [facility] [address] [id number] [place] [address] 1748 Jun, [facility] [place] [facility] [address] [id number] [place] [address]- 3436 Jun, [facility] [place] [facility] [address] [id number] [place] [address] 2801 Jun, [facility] [place] [facility] [address] [id number] [place] [address]- 2510 Jun, [facility] [place] [facility] [address] [id number] [place] [address] 8699 Jun, [facility] [place] [facility] [address] [id number] [place] [address]- 7984 Jun, [facility] [place] [facility] [address] [id number] [place] [address]- 8427 Jun, [facility] [place] [facility] [address] [id number] [place] [address]- 8003 14 Jun, 2014 [facility] [address] [id number] [place] [address] 8487 Jun, [facility] [address] [id number] [place] [address]- 2585 Jun, [facility] [address] [id number] [place] [address] 5847 Jun, [facility] [address] [id number] [place] [address]- 7600 Jun, [facility] [address] [id number] [place] [address]- 2136 Jun, [facility] [address] [id number] [place] [address]- 8754 Jun, [facility] [address] [id number] [place] [address]- 0051 Jun, [facility] [address] [id number] [place] [address]- 8736 30 May, 2014 [facility] [address] [id number] [place] [address]- 2282 30 May, 2014 [facility] [address] [id number] [place] [address]- 2177 30 May, 2014 [facility] [place] [facility] [address] [id number] [place] [address]- 5164 30 May, 2014 [facility] [place] [facility] [address] [id number] [place] [address]- 0436 19 May, 2014 [facility] [place] [facility] [address] [id number] [place] [address]- 0915 16 May, 2014 [facility] [place] [facility] [address] [id number] [place] [address]- 4310 16 May, 2014 [facility] [place] [facility] [address] [id number] [place] [address]- 9340 May, [facility] [place] [facility] [address] [id number] [place] [address]- 4146 May, [facility] [address] [facility] [id number] May, [facility] [place] [facility] [address] [id number] [place] May, [facility] [place] [facility] [address] [id number] [place] [address] May, [facility] [place] [facility] [address] [id number] [place] [address]- 2424 May, [facility] [place] [facility] [address] [id number] [place] [address]- 5617 Apr, [facility] [place] [facility] [address] [id number] [place] [address]- 4726 Apr, [facility] [place] [facility] [address] [id number] [place] [address]- 3799 Apr, [facility] [place] [facility] [address] [id number] [place] [address]- 8724 Apr, [facility] [place] [facility] [address] [id number] [place] [address]- 1463 Apr, [facility] [place] [facility] [address] [id number] [place] [address]- 5408 Apr, [facility] [place] [facility] [address] [id number] [place] [address]- 6696 Mar, [facility] [place] [facility] [address] [id number] [place] [address]- 5255 Mar, [facility] [place] [facility] [address] [id number] [place] [address]- 8373 Mar, [facility] [place] [facility] [address] [id number] [place] [address]- 1625 Mar, [facility] [place] [facility] [address] [id number] [place] [address] 2631 Mar, [facility] [place] [facility] [address] [id number] [place] [address]- 5904 Mar, [facility] [place] [facility] [address] [id number] [place] [address]- 6287 Feb, [facility] [place] [facility] [address] [id number] [place] [address]- 8615 Feb, [facility] [place] [facility] [address] [id number] [place] [address]- 9106 Feb, [facility] [place] [facility] [address] [id number] [place] [address]- 4310 Feb, [facility] [place] [facility] [address] [id number] [place] [address]- 2936 Feb, [facility] [place] [facility] [address] [id number] [place] [address]- 6451 Feb, [facility] [place] [facility] [address] [id number] [place] [address]- 5508 Feb, [facility] [place] [facility] [address] [id number] [place] [address]- 9258 Feb, [facility] [place] [facility] [address] [id number], [place] [address]- 8074 Feb, [facility] [place] [facility] [address] [id number], [place] [address]- 7[address] Feb, [facility] [address] [id number] Feb, [facility] [place] [facility] [address] [id number], [place] [address]- 6319 Feb, [facility] [place] [facility] [address] [id number], [place] [address]- 9908 Jan, [facility] [place] [facility] [address] [id number], [place] [address]- 7895 Jan, [facility] [place] [facility] [address] [id number], [place] [address]- 1478 Dec, 2013 [facility] [place] [facility] [address] [id number] [place] [address]- 3769 Dec, 2013 [facility] [place] [facility] [address] [id number] [place] [address]- 7283 Dec, 2013 [facility] [place] [facility] [address] [id number] [place] [address]- 7819 Dec, 2013 [facility] [place] [facility] [address] [id number] [place] [address]- 0794 Dec, 2013 [facility] [place] [facility] [address] [id number] [place] [address]- 5835 Dec, [facility] [place] [facility] [address] [id number] [place] [address]- 4748 Dec, [facility] [place] [facility] [address] [id number] [place] [address]- 2654 Dec, [facility] [place] [facility] [address] [id number] [place] [address]- 9922 Dec, [facility] [place] [facility] [address] [id number] [place] [address]- 2725 Dec, [facility] [place] [facility] [address] [id number] [place] [address]- 6234 Nov, [facility] [place] [facility] [address] [id number] [place] [address]- 7725 Nov, [facility] [place] [facility] [address] [id number] [place] [address]- 6793 Nov, [facility] [place] [facility] [address] [id number] [place] [address]- 5388 Nov, [facility] [place] [facility] [address] [id number] [place] [address]- 9064 Nov, [facility] [place] [facility] [address] [id number] [place] [address]- 2820 Nov, [facility] [place] [facility] [address] [id number] [place] [address]- 5896 Nov, [facility] [place] [facility] [address] [id number] [place] [address]- 7758 Nov, [facility] [place] [facility] [address] [id number] [place] [address]- 8757 Nov, [facility] [place] [facility] [address] [id number] [place] [address]- 5645 Nov, [facility] [place] [facility] [address] [id number] [place] [address]- 1361 Nov, [facility] [place] [facility] [address] [id number] [place] [address]- 5658 Nov, [facility] [place] [facility] [address] [id number] [place] [address]- 3811 Nov, [facility] [place] [facility] [address] [id number] [place] [address]- 4211 Nov, [facility] [place] [facility] [address] [id number] [place] [address]- 8676 October, [facility] [place] [facility] [address] [id number] [place] [address]- 2499 October, [facility] [place] [facility] [address] [id number] [place] [address]- 9985 October, [facility] [place] [facility] [address] [id number] [place] [address]- 2715 October, [facility] [place] [facility] [address] [id number] [place] [address]- 3748 October, [facility] [place] [facility] [address] [id number] [place] [address]- 1219 October, [facility] [place] [facility] [address] [id number] [place] [address]- 3078 October, [facility] [place] [facility] [address] [id number] [place] [address]- 2618 October, [facility] [place] [facility] [address] [id number] [place] [address]- 8016 October, [facility] [place] [facility] [address] [id number] [place] [address]- 0195 October, [facility] [place] [facility] [address] [id number] [place] [address]- 6336 Sep, [facility] [place] [facility] [address] [id number] [place] [address]- 8049 Sep, [facility] [place] [facility] [address] [id number] [place] [address]- 2353 Sep, [facility] [place] [facility] [address] [id number] [place] [address]- 4751 Sep, [facility] [place] [facility] [address] [id number] [place] [address]- 3605 Sep, [facility] [place] [facility] [address] [id number] [place] [address]- 0277 Sep, [facility] [place] [facility] [address] [id number] [place] [address]- 2034 Sep, [facility] [place] [facility] [address] [id number] [place] [address]- 9317 Sep, [facility] [place] [facility] [address] [id number] [place] [address]- 9888 Sep, [facility] [place] [facility] [address] [id number] [place] [address]- 0102 Sep, [facility] [place] [facility] [address] [id number] [place] [address]- 4905 Aug, [facility] [place] [facility] [address] [id number] [place] [address]- 7217 Aug, [facility] [place] [facility] [address] [id number] [place] [address]- 9864 Aug, [facility] [place] [facility] [address] [id number] [place] [address]- 2865 10 Aug, 2013 [facility] [place] [facility] [address] [id number] [place] [address]- 8769 Aug, [facility] [place] [facility] [address] [id number] [place] [address]- 6111 Aug, [facility] [place] [facility] [address] [id number] [place] [address]- 0887 Aug, [facility] [place] [facility] [address] [id number] [place] [address]- 6501 Aug, [facility] [place] [facility] [address] [id number] [place] [address]- 2768 Aug, [facility] [place] [facility] [address] [id number] [place] [address]- 7868 Jul, [facility] [place] [facility] [address] [id number] [place] [address]- 6348 Jul, [facility] [place] [facility] [address] [id number] [place] [address]- 0366 Jul, [facility] [place] [facility] [address] [id number] [place] [address]- 8375 Jul, [facility] [place] [facility] [address] [facility] [id number] [place] [address]- 5788 Jul, [facility] [place] [facility] [address] [facility] [id number] [place] [address]- 6212 Jul, [facility] [place] [facility] [address] [id number] [place] [address]- 1574 Jul, [facility] [place] [facility] [address] [id number] [place] [address]- 2446 Jul, [facility] [place] [facility] [address] [facility] [id number] [place] 1316 Jul, [facility] [place] [facility] [address] [facility] [id number] [place] [address]- 0378 Jul, [facility] [place] [facility] [address] [id number] [place] [address]- 3723 Jul, [facility] [place] [facility] [address] [id number] [place] [address]- 2906 Jul, [facility] [place] [facility] [address] [id number] [place] [address]- 5866 Jul, [facility] [place] [facility] [address] [id number] [place] [address]- 8737 Jul, [facility] [place] [facility] [address] [id number] [place] [address]- 6783 Jul, [facility] [place] [facility] [address] [id number] [place] [address]- 3260 Jul, [facility] [place] [facility] [address] [id number] [place] [address]- 0384 Jun, [facility] [place] [facility] [address] [id number] [place] [address]- 0651 Jun, [facility] [place] [facility] [address] [id number] [place] [address]- 0744 Jun, [facility] [place] [facility] [address] [id number] [place] [address]- 4281 Jun, [facility] [place] [facility] [address] [id number] [place] [address]- 3082 Jun, [facility] [place] [facility] [address] [id number] [place] [address]- 7912 Jun, [facility] [place] [facility] [address] [id number] [place] [address]- 3961 May, [facility] [place] [facility] [address] [id number] [place] [address]- 0028 May, [facility] [place] [facility] [address] [facility] [id number] [place] [address]- 0394 May, [facility] [place] [facility] [address] [id number] [place] [address]- 9629 May, [facility] [address] [id number] [place] [address]- 8300 Apr, [facility] [place] [facility] [address] [id number] [place] [address]- 3180 Apr, [facility] [place] [facility] [address] [id number] [place] [address]- 5822 Apr, [facility] [place] [facility] [address] [id number] [place] [address]- 9095 Apr, [facility] [place] [facility] [address] [id number] [place] [address]- 4768 Apr, [facility] [place] [facility] [address] [id number] [place] [address]- 5004 Apr, [facility] [place] [facility] [address] [id number] [place] [address]- 3782 Apr, [facility] [place] [facility] [address] [id number] [place] [address]- 5391 Apr, [facility] [place] [facility] [address] [id number] [place] [address]- 9161 Apr, [facility] [place] [facility] [address] [id number] [place] [address]- 4601 Apr, [facility] [place] [facility] [address] [id number] [place] [address]- 8067 Apr, [facility] [place] [facility] [address] [id number] [place] [address]- 5492 Apr, [facility] [place] [facility] [address] [id number] [place] [address]- 4683 Mar, [facility] [place] [facility] [address] [id number] [place] [address]- 5666 Mar, [facility] [place] [facility] [address] [id number] [place] [address]- 6624 Mar, [facility] [place] [facility] [address] [id number] [place] [address]- 0767 16 Mar, 2013 [facility] [place] [facility] [address] [id number] [place] [address]- 7251 15 Mar, 2013 [facility] [place] [facility] [address] [id number] [place] [address]- 5332 15 Mar, 2013 [facility] [place] [facility] [address] [id number] [place] [address]- 8610 27 Feb, 2012 [facility] [place] [facility] [address] [id number] [place] [address]- 9516 25 Feb, 2013 [facility] [place] [facility] [address] [id number] [place] [address]- 2399 25 Feb, 2013 [facility] [place] [facility] [address] [id number] [place] [address]- 0414 23 Feb, 2013 [facility] [place] [facility] [address] [id number] [place] [address]- 2786 17 Feb, 2013 [facility] [place] [facility] [address] [id number] [place] [address]- 7298 10 Feb, 2013 [facility] [place] [facility] [address] [id number] [place] [address]- 4353 04 Feb, 2013 [facility] [place] [facility] [address] [id number] [place] [address]- 7919 30 Jan, 2013 [facility] [place] [facility] [address] [id number], [place] [address]- 1510 20 Jan, 2013 [facility] [place] [facility] [address] [id number] [place] [address]- 7767 15 Jan, 2013 [facility] [place] [facility] [address] [id number] [place] [address]- 7607 14 Jan, 2013 [facility] [place] [facility] [address] [id number] [place] [address]- 5332 Jan, [facility] [place] [facility] [address] [id number] [place] [address]- 4945 Jan, [facility] [address] [id number] [place] [address]- 5696 Jan, [facility] [place] [facility] [address] [id number] [place] [address]- 7626 Dec, [facility] [place] [facility] [address] [id number] [place] [address]- 8827 Dec, [facility] [place] [facility] [address] [id number] [place] [address]- 1323 Dec, [facility] [place] [facility] [address] [id number] [place] [address]- 0960 Dec, [facility] [place] [facility] [address] [id number] [place] [address]- 2456 Dec, [facility] [address] [id number] [place] [address]- 7635 Dec, [facility] [place] [facility] [address] [id number] [place] [address]- 6541 Nov, [facility] [place] [facility] [address] [id number] [place] [address]- 6353 Nov, [facility] [place] [facility] [address] [id number] [place] [address]- 0601 Nov, [facility] [place] [facility] [address] [id number] [place] [address]- 9993 Nov, [facility] [place] [facility] [address] [id number] [place] [address]- 5905 October, [facility] [place] [facility] [address] [id number] [place] [address]- 9288 October, [facility] [place] [facility] [address] [id number] [place] [address] October, [facility] [place] [facility] [address] [id number] [place] [address] October, [facility] [place] [facility] [address] [id number] [place] [address] 30 Sep, 2012 [facility] [address] [id number] [place] [address] Sep, [facility] [place] [facility] [address] [id number] [place] [address] 16 Sep, 2012 [facility] [place] [facility] [address] [id number] [place] [address] Sep, [facility] [address] [id number] [place] [address] Sep, [facility] [place] [facility] [address] [id number] [place] [address] Sep, [facility] [place] [address] [id number] [place] [address] Sep, [facility] [address] [id number] [place] [address] Sep, [facility] [address] [id number] [place] [address] Aug, [facility] [place] [facility] [address] [id number] [place] [address] Aug, [facility] [place] [facility] [address] [id number] [place] [address] 05 Aug, 2012 [facility] [place] [facility] [address] [id number] [place] [address] 18 Jul, 2012 [facility] [place] [facility] [address] [id number] [place] [address] 08 Jul, 2012 [facility] [place] [facility] [address] [id number] [place] [address] 07 Jul, 2012 [facility] [place] [facility] [address] [id number] [place] [address] 06 Jul, 2012 [facility] [place] [facility] [address] [id number], [place] [address] 05 Jul, 2012 [facility] [address] [id number] [place] [address] Jun, [facility] [place] [facility] [address] [id number] [place] [address] Jun, [facility] [place] [facility] [address] [facility] [id number] [place] [address] Jun, [facility] [place] [facility] [address] [id number] [place] [address] May, [facility] [place] [facility] [address] [id number] [place] [address] May, [facility] [place] [facility] [address] [id number] [place] [address] May, [facility] [place] [facility] [address] [facility] [id number] [place] [address] May, [facility] [place] [facility] [address] [id number] [place] [address] May, [facility] [place] [facility] [address] [facility] [id number] [place] [address] May, [facility] [place] [facility] [address] [facility] [id number] [place] [address] May, [facility] [place] [facility] [address] [id number] [place] [address] Apr, [facility] [place] [facility] [address] [id number] [place] [address] Apr, [facility] [place] [facility] [address] [id number] [place] [address] Apr, [facility] [place] [facility] [address] [id number] [place] [address] Apr, [facility] [place] [facility] [address] [facility] [id number] [place] [address] Apr, [facility] [place] [facility] [address] [id number] [place] [address] Apr, [facility] [place] [facility] [address] [id number] [place] [address] Apr, [facility] [place] [facility] [address] [id number] [place] [address] Apr, [facility] [place] [facility] [address] [id number] [place] [address] Apr, [facility] [place] [facility] [address] [id number] [place] [address]- [address] Apr, [facility] [place] [facility] [address] [id number] [place] [address] Apr, [facility] [place] [facility] [address] [id number] [place] [address] Mar, [facility] [place] [facility] [address] [id number] [place] [address] Mar, [facility] [place] [facility] [address] [id number] [place] [address]- [address] Mar, [facility] [place] [facility] [address] [id number] [place] [address] Mar, [facility] [place] [facility] [address] [facility] [id number] [place] [address] 1739 Mar, [facility] [place] [facility] [address] [id number] [place] [address]34 Mar, [facility] [place] [facility] [address] [id number] [place] [address]98 Mar, [facility] [place] [facility] [address] [id number] [place] [address] Mar, [facility] [place] [facility] [address] [id number] [place] [address] Mar, [facility] [place] [facility] [address] [id number] [place] [address]- [address]158 16 Mar, 2012 [facility] [place] [facility] [address] [id number] [place] [address]34 04 Mar, 2012 [facility] [place] [facility] [address] [id number] [place] [address] 2011 [facility] [place] [facility] [address] [id number] [place] [address]- [address] 27 Feb, 2011 [facility] [place] [facility] [address] [id number] [place] [address]- [address] 27 Feb, 2011 [facility] [place] [facility] [address] [id number] [place] [address]- [address] 26 Feb, 2012 [facility] [place] [facility] [address] [id number] [place] [address]- 2726 24 Feb, 2012 [facility] [place] [facility] [address] [id number] [place] [address]- 3982 19 Feb, 2012 [facility] [place] [facility] [address] [id number] [place] [address]- 9247 18 Feb, 2012 [facility] [place] [facility] [address] [id number] [place] [address]- 3865 18 Feb, 2012 [facility] [place] [facility] [address] [id number] [place] [address]- 1271 18 Feb, 2012 [facility] [place] [facility] [address] [id number], [place] [address] Jan, [facility] [place] [facility] [address] [id number], [place] [address] Jan, [facility] [place] [facility] [address] [id number] [place] [address]- [address] Jan, [facility] [place] [facility] [address] [id number] [place] [address]- 8[address] Jan, [facility] [place] [facility] [address] [id number] [place] [address]- 9028 Dec, [facility] [place] [facility] [address] [id number] [place] [address]- 4467 Dec, [facility] [place] [facility] [address] [id number] [place] [address]- 0477 Dec, [facility] [place] [facility] [address] [id number] [place] [address] Dec, [facility] [place] [facility] [address] [id number] [place] [address] Dec, [facility] [place] [facility] [address] [id number] [place] [address] Dec, [facility] [place] [facility] [address] [id number] [place] [address] Dec, [facility] [place] [facility] [address] [id number] [place] [address] Dec, [facility] [place] [facility] [address] [id number] [place] [address] Dec, [facility] [place] [facility] [address] [id number] [place] [address] Dec, [facility] [place] [facility] [address] [id number] [place] [address] Dec, [facility] [place] [facility] [address] [id number] [place] [address] Dec, [facility] [place] [facility] [address] [id number] [place] [address] Dec, [facility] [place] [facility] [address] [id number] [place] [address] Dec, [facility] [place] [facility] [address] [id number] [place] [address] Nov, [facility] [place] [facility] [address] [id number] [place] [address] Nov, [facility] [place] [facility] [address] [id number] [place] [address] Nov, [facility] [place] [facility] [address] [id number] [place] [address] Nov, [facility] [place] [facility] [address] [id number] [place] [address] Nov, [facility] [place] [facility] [address] [id number] [place] [address] Nov, [facility] [place] [facility] [address] [id number] [place] [address] October, [facility] [address] [id number] [place] [address] October, [facility] [place] [facility] [address] [id number] [place] [address] October, [facility] [place] [facility] [address] [id number] [place] [address] October, [facility] [place] [facility] [address] [id number] [place] [address] Sep, [facility] [place] [facility] [address] [id number] [place] [address]76 17 Sep, 2011 [facility] [place] [facility] [address] [id number] [place] [address]99 13 Sep, 2011 [facility] [place] [facility] [address] [id number] [place] [address]- [address] Sep, [facility] [place] [facility] [address] [id number] [place] [address] Sep, [facility] [place] [facility] [address] [id number] [place] [address] 1385 Aug, [facility] [place] [facility] [address] [id number] [place] [address] Aug, [facility] [place] [facility] [address] [id number] [place] [address] Aug, [facility] [place] [facility] [address] [id number], [place] [address] Aug, [facility] [address] [id number] [place] [address] Aug, [facility] [address] [id number], [place] [address] Aug, [facility] [address] [facility] [id number], [place] [address] Aug, [facility] [address] [id number], [place] [address] Jul, [facility] [address] [facility] [id number] [place] [address] 1409 Jul, [facility] [address] [facility] [id number] [place] [address] Jul, [facility] [address] [facility] [id number], [place] [address] Jul, [facility] [address] [facility] [id number], [place] [address] Jun, [address] [id number] Jun, [facility] [address] [facility] [id number], [place] [address] Jun, [facility] [address] [facility] [id number], [place] [address] Jun, [facility] [address] [facility] [id number], [place] [address] Jun, [facility] [place] [facility] [address] [facility] [id number], [place] [address] Jun, [facility] [address] [facility] [id number], [place] [address]- [address] Jun, [facility] [place] [facility] [address] [facility] [id number], [place] [address] 1334 Jun, [facility] [address] [facility] [id number] [place] [address]- [address]270 29 May, 2011 [facility] [place] [facility] [address] [id number] [place] [address]- 1112 29 May, 2011 [facility] [place] [facility] [address] [id number] [place] [address]- 8[address] May, [facility] [place] [facility] [address] [id number] [place] [address]- [address]907 May, [facility] [place] [facility] [address] [id number] [place] [address]- 4817 May, [facility] [place] [facility] [address] [id number] [place] [address]- 4142 May, [facility] [place] [facility] [address] [id number] [place] [address]- 1513 May, [facility] [place] [facility] [address] [id number] [place] [address]- 0137 Apr, [facility] [place] [facility] [address] [id number] [place] [address]- 6957 Apr, [facility] [place] [facility] [address] [id number] [place] [address]- 2436 Apr, [facility] [place] [facility] [address] [id number] [place] [address]- 5747 27 Mar, 2011 [facility] [place] [facility] [address] [id number] [place] [address]- 5600 20 Mar, 2011 [facility] [place] [facility] [address] [id number] [place] [address]- 1836 14 Mar, 2011 [facility] [place] [facility] [address] [id number] [place] [address]- 1151 11 Mar, 2011 [facility] [place] [facility] [address] [id number] [place] [address]- 4777 10 Mar, 2011 [facility] [place] [facility] [address] [id number], [place] [address] 9438 10 Mar, 2011 [facility] [place] [facility] [address] [id number] [place] [address]- 1597 10 Mar, 2011 [facility] [address] [id number] [place] [address]- 5628 11 Jan, 2011 [facility] [place] [facility] [address] [id number] [place] [address]- 1432 27 May, 2010 [facility] [place] [facility] [address] [id number] [place] [address]- 8006 21 May, 2010 [facility] [place] [facility] [address] [id number] [place] [address]- 5698 13 May, 2010 [facility] [place] [facility] [address] [id number] [place] [address]- 3095 13 May, 2010 [facility] [address] [id number] [place] [address]- 4302 May, [facility] [place] [facility] [address] [id number] [place] [address]- 2110 06 May, 2010 [facility] [place] [facility] [address] [id number] [place] [address]- 9270 29 Apr, 2010 [facility] [place] [facility] [address] [id number] [place] [address]- 3282 26 Apr, 2010 [facility] [place] [facility] [address] [id number] [place] [address]- 8607 19 Apr, 2010 [facility] [place] [facility] [address] [id number] [place] [address]- 9076 18 Apr, 2010 [facility] [place] [facility] [address] [id number] [place] [address]- 2162 15 Apr, 2010 [facility] [place] [facility] [address] [id number] [place] [address]- 2138 12 Apr, 2010 [facility] [place] [facility] [address] [id number] [place] [address]- 2754 12 Apr, 2010 [facility] [place] [facility] [address] [id number], [place] [address]- 2766 Apr, [facility] [address] [id number] [address] [address] Apr, [facility] [id number], [place] [address] 2976 Apr, [facility] [id number], [place] [address] 0740 Mar, [facility] [id number] [address] Mar, [facility] [id number] [address] Mar, [facility] [id number] [place] [address]- 2474 Mar, [facility] [id number] [address] Mar, [facility] [id number], [place] [address] 6[address] Dec, [facility] [id number], [place] [address]- 4[address] Nov, IMMUNIZATIONS No Known Immunizations SOCIAL HISTORY Never Assessed REASON FOR VISIT PLAN OF CARE VITAL SIGNS MEDICATIONS Medication Instructions Dosage Frequency Start Date End Date Duration Status Lipitor 40 mg Orally Once a day 1 tablet 24h Active RESULTS No Results PROCEDURES No Known [...] surgery and skin graft, cholecysectomy Hospitalization History [facility] Hospitalization History [facility] 08/2017
--- OUTSIDE RECORDS SUMMARY | 2018-02-04 13:14 | XMS REPORT ---
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 Name Role Phone JIMMY SPAULDING Unavailable PROBLEMS Type Condition ICD9-CM Code ALT57-WA Code Onset Dates Condition Status SNOMED Code Problem History of colon polyps Z86.010 Active 734660026 Problem Factitious disorder imposed on self, recurrent episode F68.10 Active 38600215 Problem Anemia, unspecified type D64.9 Active 026629417 Problem Allergic state, subsequent encounter T78.40XD Active 311574984 Problem Unspecified psychosis not due to a substance or known physiological condition F29 Active 15016629 Problem Age-related osteoporosis without current pathological fracture M81.0 Active 08060232 Problem Personality disorder F60.9 Active 27699728 Problem Iron deficiency anemia, unspecified iron deficiency anemia type D50.9 Active 86426135 Problem Anxiety F41.9 Active 46104616 Problem History of CVA with residual deficit I69.30 Active 050217382 Problem Insomnia, unspecified type G47.00 Active 503279196 Problem Perennial allergic rhinitis, unspecified allergic rhinitis trigger J30.89 Active 060837410 Problem Seizure disorder G40.909 Active 713189286 Problem Chronic kidney disease, unspecified stage N18.9 Active 476503245 Problem Back pain M54.9 Active 415909572 Problem Gastroesophageal reflux disease without esophagitis K21.9 Active 338630348 ALLERGIES No Information ENCOUNTERS Encounter Location Date Diagnosis [facility] [address] [facility] [id number], [place] [address] Jan, [facility] [address] [id number], [place] [address] Dec, [facility] [address] [id number], [place] [address] Dec, [facility] [address], [place] [address] Dec, [facility] [address] [id number] [address] Dec, Back pain M54.9 [facility] [address], [place] [address] Dec, Factitious disorder imposed on self, recurrent episode F68.10 ; Personality disorder F60.9 ; Insomnia, unspecified type G47.00 and Anxiety F41.9 [facility] [id number] [place] [address] 93155- 2400 Nov, Unspecified psychosis not due to a substance or known physiological condition F29 ; Personality disorder F60.9 and Factitious disorder imposed on self, recurrent episode F68.10 [facility] [address], [place] [address] Nov, Back pain M54.9 [facility] [id number] [place] [address] 15848- 1384 Nov, Unspecified psychosis not due to a substance or known physiological condition F29 ; Personality disorder F60.9 and Factitious disorder imposed on self, recurrent episode F68.10 [facility] [address], [place] [address] October, [facility] [address], [place] [address] October, [facility] [address], [place] [address] 9485 October, Unspecified psychosis not due to a substance or known physiological condition F29 ; Personality disorder F60.9 and Factitious disorder imposed on self, recurrent episode F68.10 [facility] [address], [place] [address] 97[address] October, Back pain M54.9 [facility] [address] [id number] [address] 0[address] October, Seizure disorder G40.909 ; Back pain M54.9 and Allergic state, subsequent encounter T78.40XD [facility] [id number] [place] [address] 01036- 2939 October, [facility] [id number] [place] [address] 37097- 9572 Sep, Back pain M54.9 [facility] [id number] [place] [address] 08719- 6271 Sep, Unspecified psychosis not due to a substance or known physiological condition F29 ; Personality disorder F60.9 and Factitious disorder imposed on self, recurrent episode F68.10 [facility] [id number] [place] [address] 31528- 5402 Sep, [facility] [id number] [place] [address] 98062- 8656 Sep, [facility] [id number] [place] [address] 63884- 5843 Sep, [facility] [id number] [place] [address] 35964- 5923 Sep, [facility] [id number] [place] [address] 90773- 8217 Aug, [facility] [id number] [place] [address] 98164- 5103 Aug, Back pain M54.9 [facility] [id number] [place] [address] 17293- 4047 15 Aug, 2017 Factitious disorder imposed on self, recurrent episode F68.10 ; Personality disorder F60.9 ; Insomnia, unspecified type G47.00 and Anxiety F41.9 [facility] [address], [place] [address] 08 Aug, 2017 Back pain M54.9 ; Iron deficiency anemia, unspecified iron deficiency anemia type D50.9 ; Chronic kidney disease, unspecified stage N18.9 and Breast cancer screening Z12.31 [facility] [id number] [id number] Jul, Back pain M54.9 [facility] [id number] [id number] Jul, [facility] [id number] [address] Jul, [facility] [id number] [address] Jun, Back pain M54.9 [facility] [id number] [place] [id number] Jun, [facility] [id number] [address] Jun, Back pain M54.9 [facility] [address] [place] [address] 165634- 5712 Jun, Back pain M54.9 ; Seizure disorder G40.909 and Age-related osteoporosis without current pathological fracture M81.0 [facility] [id number][place] [address] May, [facility] [address] [id number] [address] May, Back pain M54.9 [place] [facility] [id number] [place] [address] 25399- 8471 Apr, Back pain M54.9 ; Encounter for immunization Z23 ; Gastroesophageal reflux disease without esophagitis K21.9 ; Age-related osteoporosis without current pathological fracture M81.0 and Chronic pruritus L29.9 [facility] [address] [id number], [place] [address] 0963 Apr, History of CVA with residual deficit I69.30 [facility] [address] [place] [address] 68820- 2711 Apr, Factitious disorder imposed on self, recurrent episode F68.10 and Personality disorder F60.9 [facility] [id number] [address] 08 Apr, 2017 Back pain M54.9 [facility] [address], [place] [address] 3207 Mar, Factitious disorder imposed on self, recurrent episode F68.10 [facility] [address]005[address], [place] [address] Mar, [facility] [id number] [place] [address] [id number] Mar, [facility] [id number] [place] [address] [id number] Mar, Back pain M54.9 [facility] [address] [place] [address] 81578- 8387 Mar, Back pain M54.9 ; Seizure disorder G40.909 and Age-related osteoporosis without current pathological fracture M81.0 [facility] [address] [place] [address] 78114- 6780 Feb, History of CVA with residual deficit I69.30 [facility] [address], [place] [address] 5226 Feb, Factitious disorder imposed on self, recurrent episode F68.10 and Personality disorder F60.9 [facility] [address] [place] [address] 74205- 2044 15 Feb, 2017 Back pain M54.9 [facility] [address], [place] [address] 14[address] 06 Feb, 2017 [facility] [address] [place] [address] 66928- 9739 Jan, [facility] [address] [address] Jan, Age- related osteoporosis without current pathological fracture M81.0 and Allergic state, subsequent encounter T78.40XD [facility] [address], [place] [address]- 4891 Jan, Factitious disorder imposed on self, recurrent episode F68.10 and Personality disorder F60.9 [facility] [address]100[place], [place] [address]- 6569 Dec, Back pain M54.9 [facility] [id number] [place] [address] 79570- 9641 Dec, Personality disorder F60.9 and Factitious disorder imposed on self, recurrent episode F68.10 [facility] [id number] [place] [address] [id number] Dec, Back pain M54.9 [facility] [id number] [place] [address] [id number] Dec, [facility] [id number] [place] [address] [id number] Dec, [facility] [id number] [place] [address] 41508- 1923 Dec, [facility] [id number] [place] [address] 65770- 9413 Nov, [facility] [id number] [place] [address] 22640- 6479 Nov, Back pain M54.9 ; Anemia, unspecified type D64.9 and History of colon polyps Z86.010 [facility] [address], [place] [address]- 2791 Nov, Back pain M54.9 [facility] [id number] [place] [address] [id number] October, Back pain M54.9 [facility] [address] [address] October, Back pain M54.9 and Gastroesophageal reflux disease without esophagitis K21.9 [facility] [id number] [place] [address] [id number] Sep, [facility] [address], [place] [address]- 6205 Sep, [facility] [address], [place] [address]- 7233 Sep, [facility] [address], [place] [address]- 2951 Sep, [facility] [id number] [place] [address] 21702- 8569 Sep, [facility] [id number] [place] [address] 15812- 7460 Sep, Seizure disorder G40.909 [facility] [address], [place] [address]- 7811 Sep, Back pain M54.9 [facility] [address], [place] [address]- 0970 Sep, [facility] [address] [id number], [place] [address]- 7128 Aug, Back pain M54.9 [facility] [address], [place] [address]- 0881 Aug, Seizure disorder G40.909 [facility] [id number] [address] Aug, [facility] [address] [id number] [id number] Aug, Back pain M54.9 [facility] [id number] [id number] Aug, Back pain M54.9 [facility] [id number] [address] Aug, Back pain M54.9 [facility] [address] [id number] Jul, Weakness R53.1 [facility] [address], [place] [address]- 0015 Jul, Seizure disorder G40.909 [facility] [id number] [place] [address] 19728- 7758 Jul, [facility] [id number] [place] [address] 16535- 0944 Jul, Breast cancer screening Z12.39 [facility] [id number] [place] [address] 97726- 0484 Jul, [facility] [id number] [place] [address] 24368- 7423 Jul, [facility] [id number] [place] [address] 83919- 4282 Jul, [facility] [id number] [place] [address] 09421- 3514 Jul, Seizure disorder G40.909 ; Fatigue, unspecified type R53.83 ; Perennial allergic rhinitis, unspecified allergic rhinitis trigger J30.89 and Chronic kidney disease, unspecified stage N18.9 [facility] [address] [place] [address] 14736- 5833 Jul, [facility] [address] [place] [address] 76492- 4921 Jul, Seizure disorder G40.909 [facility] [address], [place] [address]- 5565 Jun, [facility] [address] [place] [address] 13298- 3722 Jun, [address] [id number] Jun, Perennial allergic rhinitis, unspecified allergic rhinitis trigger J30.89 [facility] [id number] [place] [address] [id number] Jun, [facility] [address] [id number], [place] [address]- 9837 Jun, Seizure disorder G40.909 [facility] [id number] [place] [address] [id number] Jun, [facility] [id number] [place] [address] [id number] May, [facility] [id number] [place] [address] 42891- 1605 May, [facility] [id number] [place] [address] 70699- 3917 May, [facility] [id number] [place] [address] 25384- 1811 May, [facility] [id number] [place] [address] 02542- 2954 May, History of CVA with residual deficit I69.30 [facility] [id number] [place] [address] 85627- 1968 May, [facility] [id number] [place] [address] 92472- 8456 May, [facility] [id number] [place] [address] 34261- 0873 May, [facility] [address] [place] [address] 67851- 2711 May, Seizure disorder G40.909 [facility] [id number] [place] [address] 09299- 4205 May, [facility] [address] [place] [address] May, Back pain M54.9 and Seizure disorder G40.909 [facility] [address], [place] [address]- 6277 Apr, [facility] [id number] [place] [address] 11091- 0592 Apr, Back pain M54.9 [facility] [address] [id number], [place] [address]- 5481 Mar, [facility] [address] [place] [address] Mar, Insomnia, unspecified type G47.00 [facility] [address] [facility] [id number], [place] [address]- 9469 Mar, [facility] [id number] [place] [address] 84781- 5392 Feb, [facility] [address] [facility] [id number], [place] [address]- 9653 Feb, [facility] [address] [facility] [id number] [place] [address] 76445- 2518 Feb, [facility] [address] [facility] [id number], [place] [address]- 6808 Jan, [facility] [address] [facility] [id number] [place] [address] 15150- 0317 Jan, [facility] [address] [place] [address] Jan, Seizure disorder G40.909 and Back pain M54.9 [facility] [address] [facility] [id number], [place] [address]- 6003 Dec, [facility] [address] [facility] [id number], [place] [address]- 5901 Dec, [facility] [address] [facility] [id number], [place] [address]- 8185 Dec, [facility] [address] [facility] [id number], [place] [address]- 4208 Nov, [facility] [address] [facility] [id number], [place] [address]- 2574 Nov, [facility] [address] [facility] [id number], [place] [address]- 3234 Nov, Back pain M54.9 [facility] [id number] [place] [address] 16804- 0595 October, [facility] [id number] [place] [address] 56569- 0353 October, Back pain M54.9 [facility] [id number] [place] [address] 34590- 9227 October, Seizure disorder G40.909 and B12 deficiency E53.8 [facility] [id number] [place] [address] 38193- 7166 Sep, History of CVA with residual deficit I69.30 [facility] [id number] [place] [address] 66714- 2157 Sep, [facility] [id number] [place] [address] 17326- 6312 Sep, [facility] [id number] [place] [address] 54929- 5475 Sep, Back pain M54.9 [facility] [id number] [place] [address] 86457- 5654 Sep, Seizure disorder G40.909 [facility] [id number] [place] [address] 41681- 3735 Aug, Back pain M54.9 [facility] [id number] [place] [address] 97180- 5743 Aug, Seizure disorder G40.909 [facility] [id number] [place] [address] 19641- 7556 16 Aug, 2015 Back pain M54.9 [facility] [id number] [place] [address] 08802- 8695 14 Aug, 2015 Heart failure, unspecified I50.9 [facility] [id number] [place] [address] 27059- 2401 14 Aug, 2015 Medication monitoring encounter Z51.81 [place] [id number] [place] [address] 97497- 1886 Jul, [facility] [id number] [place] [address] 87295- 9804 Jul, Seizure disorder G40.909 [facility] [id number] [place] [address] 43786- 9791 Jul, Back pain M54.9 [facility] [id number] [place] [address] 83335- 0010 Jun, [facility] [id number] [place] [address] 81780- 4976 Jun, [facility] [id number] [place] [address] 56042- 3774 Jun, Mental status change R41.82 ; History of CVA with residual deficit I69.30 ; Back pain M54.9 and Seizure disorder G40.909 [facility] [id number] [place] [address] 13528- 3336 Jun, [facility] [id number] [place] [address] 45925- 4286 May, [facility] [id number] [place] [address] 18801- 8452 Apr, [facility] [id number] [place] [address] 18645- 6117 Apr, Medication monitoring encounter Z51.81 [facility] [id number] [place] [address] 61248- 4277 Mar, Vomiting R11.10 [facility] [id number] [place] [address] 47859- 2006 Mar, [facility] [id number] [place] [address] 69966 2546 18 Feb, 2015 [facility] [id number] [place] [address] 13334- 9018 Feb, UTI (urinary tract infection) 599.0 [facility] [address] [id number] [place] [address]- 8806 Jan, [facility] [address] [id number] [place] [address] 2546 Jan, [facility] [address] [id number] [place] [address]- 2546 Jan, [facility] [address] [id number] [place] [address]- 6904 Dec, [facility] [address] [id number] [place] [address]- 2587 Dec, [facility] [address] [id number] [place] [address]- 8066 Dec, [facility] [address] [id number] [place] [address]- 2546 Dec, [facility] [address] [id number] [place] [address]- 4542 Nov, UNKNOWN Nov, [facility] [address] [id number] [place] [address]- 2546 October, [facility] [address] [id number] [place] [address]- 1660 Sep, [facility] [address] [id number] [place] [address]- 8208 Sep, [facility] [address] [id number], [place] [address]- 2546 Aug, [facility] [address] [id number] [place] [address]- 2546 Aug, [facility] [address] [id number] [place] [address]- 2546 Jul, [facility] [address] [id number] [place]- 7072 Jul, [facility] [place] [facility] [address] [id number] [place] [address]- 8512 Jul, [facility] [place] [facility] [address] [id number] [place] [address]- 3874 Jul, [facility] [place] [facility] [address] [id number] [place] [address]- 6779 Jul, [facility] [place] [facility] [address] [id number] [place] [address]- 9373 Jun, [facility] [place] [facility] [address] [id number] [place] [address] Jun, [facility] [place] [facility] [address] [id number] [place] [address] Jun, [facility] [place] [facility] [address] [id number] [place] [address] Jun, [facility] [place] [facility] [address] [id number] [place] [address] Jun, [facility] [place] [facility] [address] [id number] [place] [address] Jun, [facility] [place] [facility] [address] [id number] [place] [address] Jun, [facility] [place] [facility] [address] [id number], [place] [address] Jun, [facility] [place] [facility] [address] [id number], [place] [address] Jun, [facility] [place] [facility] [address] [id number] [place] [address] Jun, [facility] [place] [facility] [address] [id number], [place] [address] Jun, [facility] [place] [facility] [address] [id number] [place] [address] Jun, [facility] [place] [facility] [address] [id number] [place] [address] Jun[facility] [address] [id number] [place] [address] Jun, [facility] [address] [id number] [place] [address] Jun, [facility] [address] [id number] [place] [address] Jun, [facility] [address] [id number] [place] [address] Jun, [facility] [address] [id number] [place] [address] Jun, [facility] [address] [id number] [place] [address] May, [facility] [address] [id number] [place] [address] May, [facility] [address] [id number] [place] [address] May, [facility] [address] [id number] [place] [address] May, [facility] [address] [facility] [id number] [place] [address]- [address] May, [facility] [address] [id number] [place] [address] 16 May, 2014 [facility] [address] [id number] [place] [address] 16 May, 2014 [facility] [address] [id number] [place] [address] 15 May, 2014 [facility] [address] [id number] [place] [address]- [address] 15 May, 2014 [facility] [address] [id number] May, [facility] [place] [facility] [address] [id number] [place] [address] May, [facility] [place] [facility] [address] [id number] [place] [address] May, [facility] [facility] [address] [id number] [place] [address] May, [facility] [place] [facility] [address] [id number] [place] [address] 7915 Apr, [facility] [place] [facility] [address] [id number] [place] [address]- 7757 Apr, [facility] [place] [facility] [address] [id number] [place] [address] 1335 Apr, [facility] [place] [facility] [address] [id number] [place] [address]- 7425 Apr, [facility] [place] [facility] [address] [id number] [place] [address]- 7059 Apr, [facility] [place] [facility] [address] [id number] [place] [address]- 1520 Apr, [facility] [place] [facility] [address] [id number] [place] [address]- 9202 Mar, [facility] [place] [address] [id number] [place] [address]- 1061 Mar, [facility] [place] [facility] [address] [id number] [place] [address]- 5776 Mar, [facility] [place] [facility] [address] [id number] [place] [address]- 2904 Mar, [facility] [place] [address] [id number] [place] [address]- 0354 Mar, [facility] [place] [facility] [address] [id number] [place] [address]- 2546 Mar, [facility] [place] [facility] [address] [id number] [place] [address]- 3277 Feb, [facility] [address] [id number] [place] [address]- 5005 24 Feb, 2014 [facility] [facility] [address] [id number] [place] [address]- 9242 Feb, [facility] [address] [id number] [place] [address]- 4616 Feb, [facility] [address] [id number] [place] [address]- 0214 Feb, [facility] [place] [facility] [address] [id number] [place] [address]- 3829 Feb, [facility] [place] [facility] [address] [id number] [place] [address]- 6706 Feb, [facility] [address] [id number] [place] [address]- 8994 Feb, [facility] [place] [facility] [address] [id number] [place] [address]- 0004 Feb, [facility] [place] [facility] [address] [id number] [place] [address]- 2421 Feb, [facility] [address] [id number] Feb, [facility] [place] [facility] [address] [id number] [place] [address]- 9844 Feb, [facility] [place] [address] [id number], [place] [address] 89[address] Jan, [facility] [place] [facility] [address] [id number] [place] [address]- 7854 Jan, [facility] [place] [facility] [address] [id number] [place] [address]- 6193 Dec, [facility] [place] [facility] [address] [id number] [place] [address]- 5165 Dec, [facility] [place] [facility] [address] [id number] [place] [address]- 4536 Dec, [facility] [place] [address] [id number] [place] [address]- 3764 Dec, [facility] [place] [facility] [address] [id number] [place] [address]- 4953 Dec, [facility] [place] [facility] [address] [id number] [place] [address]- 5274 Dec, [facility] [place] [facility] [address] [id number] [place] [address]- 5932 Dec, [facility] [place] [address] [id number] [place] [address]- 3043 Dec, [facility] [place] [address] [id number] [place] [address]- 1209 Dec, [facility] [place] [address] [id number] [place] [address]- 6790 Dec, [facility] [place] [address] [id number] [place] [address]- 4350 Nov, [facility] [place] [address] [id number] [place] [address]- 6934 Nov, [facility] [place] [address] [id number] [place] [address]- 6020 Nov, [facility] [address] [id number] [place] [address]- 9856 Nov, [facility] [address] [id number] [place] [address]- 3522 Nov, [facility] [address] [id number] [place] [address]- 2287 Nov, [facility] [address] [id number] [place] [address]- 1565 Nov, [facility] [address] [id number] [place] [address]- 8131 Nov, [facility] [address] [id number] [place] [address]- 6865 Nov, [facility] [address] [id number] [place] [address]- 9995 Nov, [facility] [address] [id number] [place] [address]- 3155 Nov, [facility] [address] [id number] [place] [address]- 6776 Nov, [facility] [address] [id number] [place] [address]- 8029 Nov, [facility] [address] [id number] [place] [address]- 0845 Nov, [facility] [address] [id number] [place] [address]- 0985 October, [facility] [address] [id number] [place] [address]- 5901 October, [facility] [address] [id number] [place] [address] 3844 October, [facility] [address] [id number] [place] [address]- 6299 October, [facility] [address] [id number] [place] [address]- 4536 October, [facility] [address] [id number] [place] [address]- 9910 October, [facility] [address] [id number] [place] [address]- 7207 October, [facility] [facility] [address] [id number] [place] [address]- 1747 October, [facility] [address] [id number] [place] [address]- 4539 October, [facility] [address] [id number] [place] [address]- 7217 October, [facility] [address] [id number] [place] [address]- 2275 Sep, [facility] [address] [id number] [place] [address]- 0774 Sep, [facility] [address] [id number] [place] [address]- 0622 Sep, [facility] [address] [id number] [place] [address]- 1344 Sep, [facility] [address] [id number] [place] [address]- 3193 Sep, [facility] [address] [id number] [place] [address]- 8487 Sep, [facility] [address] [id number] [place] [address]- 7857 Sep, [facility] [address] [id number] [place] [address]- 9146 Sep, [facility] [address] [id number] [place] [address]- 3031 Sep, [facility] [address] [id number] [place] [address]- 3504 Sep, [facility] [address] [id number] [place] [address]- 9034 Aug, [facility] [address] [id number] [place] [address]- 0531 Aug, [facility] [address] [id number] [place] [address]- 9492 Aug, [facility] [address] [id number] [place] [address]- 4693 Aug, [facility] [address] [id number] [place] 1971 Aug, [facility] [address] [id number], [place] [address]- 6447 Aug, [facility] [address] [id number] [place] [address]- 7862 Aug, [facility] [address] [id number] [place] [address]- 7484 Aug, [facility] [address] [id number] [place] [address]- 5096 Aug, [facility] [address] [id number] [place] [address]- 8879 Jul, [facility] [address] [id number] [place] [address]- 6184 Jul, [facility] [address] [id number] [place] [address]- 6592 Jul, [facility] [address] [id number] [place] [address]- 9045 Jul, [facility] [address] [id number] [place] [address]- 8572 Jul, [facility] [address] [id number] [place] [address]- 3749 Jul, [facility] [address] [facility] [id number] [place] [address]- 6932 Jul, [facility] [address] [facility] [id number] [place] [address]- 2552 Jul, [facility] [address] [id number] [place] [address]- 6893 Jul, [facility] [address] [id number] [place] [address]- 4313 Jul, [facility] [address] [facility] [id number] [place] [address]- 6236 Jul, [facility] [address] [facility] [id number] [place] [address]- 5237 Jul, [facility] [address] [id number] [place] [address]- 6473 Jul, [facility] [address] [id number] [place] [address]- 2955 Jul, [facility] [address] [id number] [place] [address]- 6914 Jul, [facility] [address] [id number] [place] [address]- 0193 Jul, [facility] [address] [id number] [place] [address]- 8157 Jun, [facility] [address] [id number] [place] [address]- 9955 Jun, [facility] [address] [id number] [place] [address]- 7107 Jun, [facility] [address] [id number] [place] [address]- 0221 Jun, [facility] [address] [id number] [place] [address]- 0112 Jun, [facility] [address] [id number] [place] [address]- 8697 Jun, [facility] [address] [id number] [place] [address]- 9264 May, [facility] [address] [id number] [place] [address]- 9328 May, [facility] [address] [id number] [place] [address]- 8173 May, [facility] [address] [id number] [place] [address]- 4412 May, [facility] [address] [id number] [place] [address]- 5216 Apr, [facility] [address] [id number] [place] [address]- 2964 Apr, [facility] [address] [id number] [place] [address]- 6785 Apr, [facility] [address] [id number] [place] [address]- 3337 Apr, [facility] [address] [id number] [place] [address]- 9755 Apr, [facility] [address] [id number] [place] [address]- 8630 Apr, [facility] [address] [id number] [place] [address]- 8007 Apr, [facility] [address] [id number] [place] [address]- 5557 Apr, [facility] [address] [id number] [place] [address]- 0952 Apr, [facility] [address] [id number] [place] [address]- 5806 18 Apr, 2013 [facility] [address] [id number] [place] [address]- 0701 Apr, [facility] [address] [id number] [place] [address]- 4770 Apr, [facility] [address] [id number] [place] [address]- 8478 28 Mar, 2013 [facility] [address] [id number] [place] [address]- 5740 28 Mar, 2013 [facility] [address] [id number] [place] [address]010 16 Mar, 2013 [facility] [address] [id number] [place] [address]- 1279 16 Mar, 2013 [facility] [address] [id number] [place] [address]- 2478 15 Mar, 2013 [facility] [facility] [address] [id number] [place] [address]- 8565 15 Mar, 2013 [facility] [address] [id number] [place] [address]- 6201 27 Feb, 2013 [facility] [address] [id number] [place] [address]- 6665 25 Feb, 2013 [facility] [address] [id number] [place] [address]- 8266 25 Feb, 2012 [facility] [address] [id number] [place] [address]- 0234 23 Feb, 2013 [facility] [address] [id number] [place] [address]- 5645 17 Feb, 2013 [facility] [address] [id number] [place] [address]- 0425 10 Feb, 2013 [facility] [address] [id number] [place] [address]- 4815 04 Feb, 2013 [facility] [address] [id number] [place] [address]- 0501 30 Jan, 2013 [facility] [address] [id number], [place] [address]- 2641 Jan, [facility] [address] [id number], [place] [address]- 3243 Jan, [facility] [address] [id number], [place] [address]- 8719 14 Jan, 2013 [facility] [address] [id number] [place] [address]- 8947 Jan, [facility] [facility] [address] [id number], [place] [address]- 6703 Jan, [facility] [address] [id number], [place] [address]- 8881 Jan, [facility] [address] [id number], [place] [address]- 7049 Dec, [facility] [address] [id number] [place] [address]- 6609 Dec, [facility] [address] [id number] [place] [address]- 7044 Dec, [facility] [address] [id number] [place] [address]- 5258 Dec, [facility] [address] [id number] [place] [address]- 2251 Dec, [facility] [address] [id number] [place] [address]- 2951 Dec, [facility] [address] [id number] [place] [address]- 5198 Nov, [facility] [address] [id number] [place] [address]- 7251 Nov, [facility] [address] [id number] [place] [address]- 1542 Nov, [facility] [address] [id number] [place] [address]- 2740 Nov, [facility] [address] [id number] [place] [address]- 5793 October, [facility] [address] [id number] [place] [address]- 7604 October, [facility] [place] [facility] [address] [id number] [place] [address]- 1943 October, [facility] [place] [facility] [address] [id number] [place] [address]- 9977 October, [facility] [place] [facility] [address] [id number] [place] [address]- 1349 Sep, [facility] [place] [facility] [address] [id number] [place] [address]- 2279 Sep, [facility] [place] [facility] [address] [id number] [place] [address]- 2676 16 Sep, 2012 [facility] [place] [facility] [address] [id number] [place] [address]- 3916 12 Sep, 2012 [facility] [place] [facility] [address] [id number] [place] [address]- 5614 04 Sep, 2012 [facility] [place] [facility] [address] [id number] [place] [address]- 1126 04 Sep, 2012 [facility] [place] [facility] [address] [id number] [place] [address]- 9093 Sep, [facility] [place] [facility] [address] [id number] [place] [address]- 4964 Sep, [facility] [place] [facility] [address] [id number] [place] [address]- 7256 Aug, [facility] [place] [facility] [address] [id number] [place] [address]- 2968 Aug, [facility] [place] [facility] [address] [id number] [place] [address]- 3654 05 Aug, 2012 [facility] [place] [facility] [address] [id number] [place] [address]- 1192 18 Jul, 2012 [facility] [place] [facility] [address] [id number] [place] [address]- 0788 08 Jul, 2012 [facility] [place] [facility] [address] [id number] [place] [address]- 5217 07 Jul, 2012 [facility] [place] [facility] [address] [id number] [place] [address]- 4875 06 Jul, 2012 [facility] [place] [facility] [address] [id number] [place] [address]- 7332 05 Jul, 2012 [facility] [place] [facility] [address] [id number] [place] [address]- 9750 Jun, [facility] [place] [facility] [address] [id number] [place] [address]- 2063 Jun, [facility] [place] [facility] [address] [id number] [place] [address]- 5652 Jun, [facility] [place] [facility] [address] [id number] [place] [address]- 4465 May, [facility] [place] [facility] [address] [id number] [place] [address]- 2346 May, [facility] [place] [facility] [address] [id number] [place] [address]- 4357 May, [facility] [place] [facility] [address] [id number] [place] [address]- 7921 May, [facility] [place] [facility] [address] [id number] [place] [address]- 6559 May, [facility] [place] [facility] [address] [id number] [place] [address]- 3954 May, [facility] [place] [facility] [address] [id number] [place] [address]- 1519 May, [facility] [place] [facility] [address] [id number] [place] [address]- 0318 Apr, [facility] [place] [facility] [address] [id number] [place] [address]- 5125 Apr, [facility] [place] [facility] [address] [id number] [place] [address]- 5493 Apr, [facility] [place] [facility] [address] [id number] [place] [address]- 7826 Apr, [facility] [place] [facility] [address] [id number] [place] [address]- 7512 Apr, [facility] [place] [facility] [address] [id number] [place] [address]- 6057 Apr, [facility] [place] [facility] [address] [id number] [place] [address]- 6370 Apr, [facility] [place] [facility] [address] [id number] [place] [address]- 9159 13 Apr, 2011 [facility] [place] [facility] [address] [id number] [place] [address]- 7310 09 Apr, 2012 [facility] [place] [facility] [address] [id number] [place] [address]- 3527 Apr, [facility] [place] [facility] [address] [id number] [place] [address]- 0171 Apr, [facility] [place] [facility] [address] [id number] [place] [address]- 6803 Mar, 2011 [facility] [place] [facility] [address] [id number] [place] [address]- 9188 Mar, [facility] [place] [facility] [address] [id number] [place] [address]- 9387 Mar, [facility] [place] [facility] [address] [id number] [place] [address]- 4428 Mar, [facility] [place] [facility] [address] [id number] [place] [address]- 5692 Mar, [facility] [place] [facility] [address] [id number] [place] [address]- 5439 Mar, [facility] [place] [facility] [address] [id number] [place] [address]- 4080 Mar, [facility] [place] [facility] [address] [id number] [place] [address]- 3059 Mar, [facility] [place] [facility] [address] [id number], [place] [address]- 7632 Mar, [facility] [place] [facility] [address] [id number] [place] [address]- 1006 Mar, [facility] [place] [facility] [address] [id number] [place] [address] Mar, [facility] [place] [facility] [address] [id number] [place] [address] Feb, [facility] [place] [facility] [address] [id number] [place] [address] 27 Feb, 2011 [facility] [place] [facility] [address] [id number] [place] [address] 27 Feb, 2011 [facility] [place] [facility] [address] [id number] [place] [address] 2546 26 Feb, 2011 [facility] [place] [facility] [address] [id number] [place] [address] 2546 24 Feb, 2011 [facility] [place] [facility] [address] [id number] [place] [address] 19 Feb, 2011 [facility] [place] [facility] [address] [id number] [place] [address] 18 Feb, 2012 [facility] [place] [facility] [address] [id number] [place] [address] 18 Feb, 2012 [facility] [place] [facility] [address] [id number] [place] [address] 84[address] 18 Feb, 2012 [facility] [place] [facility] [address] [id number] [place] [address] Jan, [facility] [place] [facility] [address] [id number] [place] [address] Jan, [facility] [place] [facility] [address] [id number] [place] [address] Jan, [facility] [place] [facility] [address] [id number] [place] [address] Jan, [facility] [place] [facility] [address] [id number] [place] [address] Dec, [facility] [place] [facility] [address] [id number] [place] [address] Dec, [facility] [place] [facility] [address] [id number] [place] [address] Dec, [facility] [place] [facility] [address] [id number] [place] [address] Dec, [facility] [place] [facility] [address] [id number] [place] [address] Dec, [facility] [place] [facility] [address] [id number] [place] [address]28 Dec, [facility] [place] [facility] [address] [id number] [place] [address] Dec, [facility] [place] [facility] [address] [id number] [place] [address] Dec, [facility] [place] [facility] [address] [id number] [place] [address]- 4776 Dec, [facility] [place] [facility] [address] [id number] [place] [address] 8244 Dec, [facility] [place] [facility] [address] [id number] [place] [address] 36[address] Dec, [facility] [place] [facility] [address] [id number] [place] [address] 4067 Dec, [facility] [place] [facility] [address] [id number] [place] [address] 1720 Dec, [facility] [place] [facility] [address] [id number] [place] [address] Dec, [facility] [place] [facility] [address] [id number] [place] [address] Nov, [facility] [place] [facility] [address] [id number] [place] [address] Nov, [facility] [place] [facility] [address] [id number] [place] [address] 1566 Nov, [facility] [place] [facility] [address] [id number] [place] [address] 68[address] Nov, [facility] [place] [facility] [address] [id number] [place] [address]55 Nov, [facility] [place] [facility] [address] [id number] [place] [address]163 Nov, [facility] [place] [facility] [address] [id number] [place] [address] 9762 October, [facility] [place] [facility] [address] [id number] [place] [address] October, [facility] [place] [facility] [address] [id number] [place] [address] 12[address] October, [facility] [place] [facility] [address] [id number] [place] [address] October, [facility] [place] [facility] [address] [id number] [place] [address] 89[address] Sep, [facility] [place] [facility] [address] [id number] [place] [address]558 17 Sep, 2011 [facility] [place] [facility] [address] [id number] [place] [address] 7869 13 Sep, 2011 [facility] [place] [facility] [address] [id number] [place] [address] Sep, [facility] [place] [facility] [address] [id number] [place] [address] 03 Sep, 2011 [facility] [place] [facility] [address] [id number] [place] [address] 26 Aug, 2011 [facility] [place] [facility] [address] [id number] [place] [address]- 2965 26 Aug, 2011 [facility] [place] [facility] [address] [id number] [place] [address]- 3528 21 Aug, 2011 [facility] [place] [facility] [address] [id number] [place] [address]- [address]855 20 Aug, 2011 [facility] [place] [facility] [address] [id number] [place] [address]- 7974 13 Aug, 2011 [facility] [place] [facility] [address] [id number] [place] [address] 78[address] Aug, [facility] [address] [facility] [id number], [place] [address] Aug, [facility] [place] [facility] [address] [facility] [id number], [place] [address] Jul, [facility] [place] [facility] [address] [facility] [id number], [place] [address]- [address] Jul, [facility] [place] [facility] [address] [facility] [id number], [place] [address]- [address] Jul, [facility] [address] [facility] [id number], [place] [address] Jul, [facility] [address] [facility] [id number], [place] [address] Jun, [address] [id number] Jun, [facility] [address] [facility] [id number], [place] [address] Jun, [facility] [address] [facility] [id number], [place] [address] Jun, [facility] [address] [id number], [place] [address] Jun, [facility] [address] [facility] [id number], [place] [address] Jun, [facility] [place] [facility] [address] [facility] [id number], [place] [address]- [address] Jun, [facility] [place] [facility] [address] [facility] [id number], [place] [address]- 9427 Jun, [facility] [place] [facility] [address] [facility] [id number], [place] [address]- 6166 May, [facility] [place] [facility] [address] [facility] [id number], [place] [address]- [address]107 May, [facility] [place] [facility] [address] [facility] [id number] [place] [address]- 2794 27 May, 2011 [facility] [place] [facility] [address] [id number] [place] [address]- 4885 May, [facility] [place] [facility] [address] [id number] [place] [address]- 4350 May, [facility] [place] [facility] [address] [id number] [place] [address]- 7377 May, [facility] [place] [facility] [address] [id number] [place] [address]- 4401 May, [facility] [place] [facility] [address] [id number] [place] [address]- 3084 Apr, [facility] [facility] [address] [id number] [place] [address] Apr, [facility] [place] [facility] [address] [id number] [place] [address] Apr, [facility] [place] [facility] [address] [id number] [place] [address] Mar, [facility] [place] [facility] [address] [id number] [place] [address] 20 Mar, 2011 [facility] [place] [facility] [address] [id number] [place] [address] 14 Mar, 2011 [facility] [place] [facility] [address] [id number] [place] [address] Mar, [facility] [place] [facility] [address] [id number], [place] [address] Mar, [facility] [place] [facility] [address] [id number] [place] [address] Mar, [facility] [place] [facility] [address] [id number] [place] [address] Mar, [facility] [place] [facility] [address] [id number], [place] [address] Jan, [facility] [place] [facility] [address] [id number] [place] [address] 27 May, 2010 [facility] [place] [facility] [address] [id number] [place] [address] 21 May, 2010 [facility] [place] [facility] [address] [id number] [place] [address] 13 May, 2010 [facility] [place] [facility] [address] [id number] [place] [address] 13 May, 2010 [facility] [place] [facility] [address] [id number] [place] [address] 10 May, 2010 [facility] [place] [facility] [address] [id number] [place] [address] 06 May, 2010 [facility] [place] [facility] [address] [id number] [place] [address] 29 Apr, 2010 [facility] [place] [facility] [address] [id number] [place] [address] 26 Apr, 2010 [facility] [place] [facility] [address] [id number] [place] [address] Apr, [facility] [place] [facility] [address] [id number] [place] [address] 18 Apr, 2010 [facility] [address] [id number] [place] [address] 15 Apr, 2010 [facility] [place] [facility] [address] [id number] [place] [address] Apr, [facility] [place] [facility] [address] [id number] [place] [address] Apr, [facility] [address] [id number] [place] [address] 05 Apr, 2010 [facility] [address] [id number] [place] [address] 05 Apr, 2010 [facility] [place] [facility] [address] [id number] [place] [address] Apr, [facility] [address] [facility] [id number], [place] [address] Mar, [facility] [id number], [place] [address] Mar, [facility] [id number], [place] [address] Mar, [facility] [id number], [place] [address] Mar, [facility] [id number], [place] [address] Mar, [facility] [id number], [place] [address] Dec, [facility] [id number], [place] [address] Nov, IMMUNIZATIONS No Known Immunizations SOCIAL HISTORY Never Assessed REASON FOR VISIT Hospital admit/DC PLAN OF CARE VITAL SIGNS MEDICATIONS Medication Instructions Dosage Frequency Start Date End Date Duration Status Zofran ODT 4 MG Orally every 8 hrs 1 tablet on the tongue and allow to dissolve 8h Active Fentanyl 75 MCG/HR Transdermal every 72 hours 1 patch to skin Aug, 30 days Active Hydrocortisone 2.5 % Externally every 24 hours as needed for dry skin 1 application to affected area Active Topiramate 100 MG TAKE 1 TABLET BY MOUTH TWICE DAILY 30 Active Omeprazole 20 mg Orally every 4 hours as needed prn pain 1 capsule Active Phenytoin 50 mg TAKE 1 TABLET BY MOUTH EVERY DAY 12h Active MiraLax Orally twice a day 17 GM 12h Active Sodium Bicarbonate 650 MG Orally Once a day 1 tablet 24h Active Fluticasone Propionate 50 MCG/ACT INSTILL 1 SPRAY IN EACH NOSTRIL TWICE DAILY 30 Active Coumadin 1 MG Orally Alternate 1 mg and 1.5 mg every other day .... Active Vitamin B-12 1000 MCG/ML Injection every 14 days 1 ml Active Folic Acid 1 MG TAKE 1 TABLET BY MOUTH EVERY DAY 30 Active Nitro-Dur 0.2 MG/HR Transdermal Once a day 1 patch to skin remove after 12 hours 24h Active Citalopram Hydrobromide 10 MG Orally Once a day 1 tablet 24h 30 days Active Melatonin 5 MG Orally at bedtime 1 tablet 30 days Active Metoprolol Tartrate 25 MG TAKE 1 TABLET BY MOUTH TWICE DAILY 30 Active Gabapentin 400 MG TAKE 1 CAPSULE BY MOUTH AT BEDTIME 30 Active Restasis 0.05 % 1 DROP EACH EYE TWICE DAILY 30 Active Cephalexin 500 mg Orally 2 times a day 1 capsule 12h Active Refresh Liquigel 1 % Ophthalmic 4 times a day 1 drop into affected eye as needed 6h Active Bisacodyl 10 mg Rectal Once a day prn 1 suppository as needed Active Clorazepate Dipotassium 3.75 MG Orally Twice a day 1` tablets 12h 28 Active Acetaminophen 650 MG Orally every 6 hrs 1 tablet as needed 6h Active Lipitor 40 MG Orally Once a day 1 tablet 24h Active Fioricet 50-300-40 MG Orally every 6 hrs prn 1 capsule as needed Active Lamotrigine 100 MG TAKE 1 TABLET BY MOUTH TWICE DAILY 30 Active Vitamin D (Ergocalciferol) 29455 UNIT Orally 2 times a day every 7 days 1 capsule Active Refresh Tears 0.5 % 1 drop into affected eye as needed Active Fexofenadine HCl 180 MG Orally Once a day 1 tablet 24h Active Ibuprofen 200 mg Orally every 6 hours as needed for headache 2 tablets Active Tussin Cough DM 100-10 MG/5ML Orally every 6 hrs as needed for cough 10 ml as needed Active RESULTS No Results PROCEDURES No Known [...] surgery and skin graft, cholecysectomy Hospitalization History [facility]/2016 [facility]ization History [facility] 08/2017
--- OUTSIDE RECORDS SUMMARY | 2018-02-04 13:15 | XMS REPORT ---
Author Author NAHOMY BETH Organization [facility] Address [address] [place] [address] Care Team Providers Care Regulatory Affairs Manager Name Role Phone NAHOMY BETH Unavailable PROBLEMS Type Condition ICD9-CM Code GRM60-GU Code Onset Dates Condition Status SNOMED Code Problem History of colon polyps Z86.010 Active 502045762 Problem Factitious disorder imposed on self, recurrent episode F68.10 Active 85431589 Problem Anemia, unspecified type D64.9 Active 533963379 Problem Allergic state, subsequent encounter T78.40XD Active 182443331 Problem Unspecified psychosis not due to a substance or known physiological condition F29 Active 61694139 Problem Age-related osteoporosis without current pathological fracture M81.0 Active 63664206 Problem Personality disorder F60.9 Active 07882907 Problem Iron deficiency anemia, unspecified iron deficiency anemia type D50.9 Active 91949694 Problem Anxiety F41.9 Active 80025722 Problem History of CVA with residual deficit I69.30 Active 424887173 Problem Insomnia, unspecified type G47.00 Active 541619529 Problem Perennial allergic rhinitis, unspecified allergic rhinitis trigger J30.89 Active 705404074 Problem Seizure disorder G40.909 Active 185195162 Problem Chronic kidney disease, unspecified stage N18.9 Active 153039170 Problem Back pain M54.9 Active 880609249 Problem Gastroesophageal reflux disease without esophagitis K21.9 Active 708919263 ALLERGIES No Information ENCOUNTERS Encounter Location Date Diagnosis [facility] [id number], [place] [address] Jan, [facility] [address], [place] [address] Dec, [facility] [id number], [place] [address] 9[address] Dec, [facility] [address], [place] [address] 94[address] Dec, [facility] [id number] [place] [address] 58865- 1685 Dec, Back pain M54.9 [facility] [address], [place] [address] Dec, Factitious disorder imposed on self, recurrent episode F68.10 ; Personality disorder F60.9 ; Insomnia, unspecified type G47.00 and Anxiety F41.9 [facility] [id number] [place] [address] 28737- 0835 Nov, Unspecified psychosis not due to a substance or known physiological condition F29 ; Personality disorder F60.9 and Factitious disorder imposed on self, recurrent episode F68.10 [facility] [id number] [place] [address] 97499- 8683 Nov, Back pain M54.9 [facility] [id number] [place] [address] 32847- 0563 Nov, Unspecified psychosis not due to a substance or known physiological condition F29 ; Personality disorder F60.9 and Factitious disorder imposed on self, recurrent episode F68.10 [facility] [address], [place] [address] 8[address] October, [facility] [id number], [place] [address] 26[address] October, [facility] [id number] [place] [address] 80133- 4224 October, Unspecified psychosis not due to a substance or known physiological condition F29 ; Personality disorder F60.9 and Factitious disorder imposed on self, recurrent episode F68.10 [facility] [address], [place] [address] 0027 October, Back pain M54.9 [facility] [id number] [place] [address] 74851- 2608 October, Seizure disorder G40.909 ; Back pain M54.9 and Allergic state, subsequent encounter T78.40XD [facility] [id number] [place] [address] 18508- 4749 October, [facility] [id number] [place] [address] 08232- 3596 Sep, Back pain M54.9 [facility] [id number] [place] [address] 31183- 1141 Sep, Unspecified psychosis not due to a substance or known physiological condition F29 ; Personality disorder F60.9 and Factitious disorder imposed on self, recurrent episode F68.10 [facility] [id number] [place] [address] 40326- 9457 Sep, [facility] [id number] [place] [address] 15746- 6380 Sep, [facility] [id number] [place] [address] 42175- 7941 Sep, [facility] [id number] [place] [address] 87771- 6147 Sep, [facility] [id number] [place] [address] 12096- 7411 Aug, [facility] [id number] [place] [address] 15578- 9592 Aug, Back pain M54.9 [facility] [id number] [place] [address] 39562- 5122 Aug, Factitious disorder imposed on self, recurrent episode F68.10 ; Personality disorder F60.9 ; Insomnia, unspecified type G47.00 and Anxiety F41.9 [facility] [address], [place] [address] 08 Aug, 2017 Back pain M54.9 ; Iron deficiency anemia, unspecified iron deficiency anemia type D50.9 ; Chronic kidney disease, unspecified stage N18.9 and Breast cancer screening Z12.31 [facility] [id number] [id number] Jul, Back pain M54.9 [facility] [id number] [id number] Jul, [facility] [id number] [id number] Jul, [facility] [id number] [id number] Jun, Back pain M54.9 [facility] [id number] [place] [address] [id number] Jun, [facility] [id number] [id number] Jun, Back pain M54.9 [facility] [id number] [place] [address] 308119- 9473 Jun, Back pain M54.9 ; Seizure disorder G40.909 and Age-related osteoporosis without current pathological fracture M81.0 [facility] [id number] [id number] May, [facility] [id number] [place] [address] 93072010- 0717 May, Back pain M54.9 [facility] [id number] [place] [address] 06543- 7474 Apr, Back pain M54.9 ; Encounter for immunization Z23 ; Gastroesophageal reflux disease without esophagitis K21.9 ; Age-related osteoporosis without current pathological fracture M81.0 and Chronic pruritus L29.9 [facility] [id number] [place] [address] 83181- 2598 Apr, History of CVA with residual deficit I69.30 [facility] [id number] [place] [address] 55001- 7130 Apr, Factitious disorder imposed on self, recurrent episode F68.10 and Personality disorder F60.9 [facility] [id number] [id number] 08 Apr, 2017 Back pain M54.9 [facility] [address], [place] [address]- 0705 Mar, Factitious disorder imposed on self, recurrent episode F68.10 [facility] [address], [place] [address]- 1067 Mar, [facility] [id number] [place] [address] [id number] Mar, [facility] [id number] [place] [address] [id number] Mar, Back pain M54.9 [facility] [id number] [place] [address] 54169- 6440 Mar, Back pain M54.9 ; Seizure disorder G40.909 and Age-related osteoporosis without current pathological fracture M81.0 [facility] [id number] [place] [address] 77169- 0277 Feb, History of CVA with residual deficit I69.30 [facility] [id number] [place] [address] 15468- 9085 Feb, Factitious disorder imposed on self, recurrent episode F68.10 and Personality disorder F60.9 [facility] [address], [place] [address]- 7693 15 Feb, 2017 Back pain M54.9 [facility] [address], [place] [address]- 9071 Feb, [facility] [id number] [place] [address] 32654- 3046 Jan, [facility] [address] [place] [id number] Jan, Age- related osteoporosis without current pathological fracture M81.0 and Allergic state, subsequent encounter T78.40XD [facility] [address], [place] [address]- 2561 Jan, Factitious disorder imposed on self, recurrent episode F68.10 and Personality disorder F60.9 [facility] [address], [place] [address]- 2327 Dec, Back pain M54.9 [facility] [address], [place] [address]- 5566 Dec, Personality disorder F60.9 and Factitious disorder imposed on self, recurrent episode F68.10 [facility] [id number] [place] [address] [id number] Dec, Back pain M54.9 [facility] [id number] [place] [address] [id number] Dec, [facility] [id number] [place] [address] [id number] Dec, [facility] [address], [place] [address]- 7130 Dec, [facility] [id number] [place] [address] 44606- 3459 Nov, [facility] [address], [place] [address]- 6628 Nov, Back pain M54.9 ; Anemia, unspecified type D64.9 and History of colon polyps Z86.010 [facility] [id number], [place] [address]- 9252 Nov, Back pain M54.9 [facility] [id number] [place] [address] [id number] October, Back pain M54.9 [facility] [address] [place] [id number] October, Back pain M54.9 and Gastroesophageal reflux disease without esophagitis K21.9 [facility] [id number] [id number] Sep, [facility] [address], [place] [address]- 3615 Sep, [facility] [id number] 4438 Sep, [facility] [address], [place] [address]- 4800 Sep, [facility] [id number], [place] [address]- 0993 Sep, [facility] [address], [place] [address]- 5846 Sep, Seizure disorder G40.909 [facility] [address], [place] [address]- 9720 Sep, Back pain M54.9 [facility] [address], [place] [address]- 6797 Sep, [facility] [id number], [place] [address]- 4234 Aug, Back pain M54.9 [facility] [address], [place] [address]- 8836 Aug, Seizure disorder G40.909 [facility] [id number] [id number] Aug, [facility] [id number] [id number] Aug, Back pain M54.9 [facility] [id number] [id number] Aug, Back pain M54.9 [facility] [id number] [id number] Aug, Back pain M54.9 [facility] [address] [id number] Jul, Weakness R53.1 [facility] [address], [place] [address]- 5330 Jul, Seizure disorder G40.909 [facility] [id number] [place] [address] 29526- 1124 Jul, [facility] [id number] [place] [address] 95574- 9261 Jul, Breast cancer screening Z12.39 [facility] [id number] [place] [address] 07524- 4665 Jul, [facility] [id number] [place] [address] 35739- 4472 Jul, [facility] [id number] [place] [address] 33532- 6128 Jul, [facility] [id number] [place] [address] 78811- 1340 Jul, Seizure disorder G40.909 ; Fatigue, unspecified type R53.83 ; Perennial allergic rhinitis, unspecified allergic rhinitis trigger J30.89 and Chronic kidney disease, unspecified stage N18.9 [facility] [id number] [place] [address] 66187- 4015 Jul, [facility] [id number] [place] [address] 98076- 2759 Jul, Seizure disorder G40.909 [facility] [id number] [place] [address] 16182- 8087 Jun, [facility] [id number] [place] [address] 00553- 3732 Jun, [facility] and [address] [id number] Jun, Perennial allergic rhinitis, unspecified allergic rhinitis trigger J30.89 [facility] [id number] [place] [address] [id number] Jun, [facility] [id number] [place] [address] 94953- 5652 Jun, Seizure disorder G40.909 [facility] [id number] [place] [address] [id number] Jun, [facility] [id number] [place] [address] [id number] May, [facility] [id number] [place] [address] 99547- 1702 May, [facility] [id number] [place] [address] 62928- 0385 May, [facility] [id number] [place] [address] 57338- 0683 May, [facility] [id number] [place] [address] 84598- 7755 May, History of CVA with residual deficit I69.30 [facility] [id number] [place] [address] 37054- 9273 May, [facility] [id number] [place] [address] 61496- 0034 May, [facility] [id number] [place] [address] 62902- 4679 May, [facility] [id number] [place] [address] 62671- 3493 May, Seizure disorder G40.909 [facility] [id number] [place] [address] 86787- 1389 May, [facility] [address] [place] [address] May, Back pain M54.9 and Seizure disorder G40.909 [facility] [id number] [place] [address] 84243- 6685 Apr, [facility] [id number] [place] [address] 44389- 2167 Apr, Back pain M54.9 [facility] [address] [id number], [place] [address]- 7817 Mar, [facility] [address] [place] [address] Mar, Insomnia, unspecified type G47.00 [facility] [address] [facility] [id number], [place] [address]- 4107 Mar, [facility] [address] [facility] [id number] [place] [address] 61505- 7770 Feb, [facility] [address] [facility] [id number] [place] [address] 83983- 1176 Feb, [facility] [address] [facility] [id number] [place] [address] 43757- 1596 Feb, [facility] [address] [facility] [id number] [place] [address] 79524- 9080 Jan, [facility] [address] [facility] [id number] [place] [address] 57419- 0475 Jan, [facility] [address] [place] [address] Jan, Seizure disorder G40.909 and Back pain M54.9 [facility] [address] [facility] [id number], [place] [address]- 8118 Dec, [facility] [address] [facility] [id number], [place] [address]- 7496 Dec, [facility] [address] [facility] [id number], [place] [address]- 9661 Dec, [facility] [address] [facility] [id number] [place] [address] 63226- 1023 Nov, [facility] [address] [facility] [id number] [place] [address] 53790- 7170 Nov, [facility] [address] [facility] [id number], [place] [address]- 9074 Nov, Back pain M54.9 [facility] [id number] [place] [address] 06211- 5290 October, [facility] [address] 80183- 3289 October, Back pain M54.9 [facility] [id number] [place] [address] 01586- 2391 October, Seizure disorder G40.909 and B12 deficiency E53.8 [facility] [id number] [place] [address] 09057- 1141 Sep, History of CVA with residual deficit I69.30 [facility] [address] 98920- 1189 Sep, [facility] [id number] [place] [address] 63675- 7768 Sep, [facility] [id number] [place] [address] 03125- 1133 Sep, Back pain M54.9 [facility] [id number] [place] [address] 73469- 9382 Sep, Seizure disorder G40.909 [facility] [id number] [place] [address] 36364- 0067 Aug, Back pain M54.9 [facility] [id number] [place] [address] 26919- 6745 Aug, Seizure disorder G40.909 [facility] [id number] [place] [address] 21288- 0838 16 Aug, 2015 Back pain M54.9 [facility] [id number] [place] [address] 67249- 8397 14 Aug, 2015 Heart failure, unspecified I50.9 [facility] [id number] [place] [address] 04459- 2028 14 Aug, 2015 Medication monitoring encounter Z51.81 [facility] [address], [place] [address]- 8894 15 Jul, 2015 [facility] [id number] [place] [address] 15679- 1336 09 Jul, 2015 Seizure disorder G40.909 [facility] [id number] [place] [address] 31023- 0523 05 Jul, 2015 Back pain M54.9 [facility] [id number] [place] [address] 06869- 8614 Jun, [facility] [id number] [place] [address] 81827- 9868 Jun, [facility] [id number] [place] [address] 48038- 2488 Jun, Mental status change R41.82 ; History of CVA with residual deficit I69.30 ; Back pain M54.9 and Seizure disorder G40.909 [facility] [id number] [place] [address] 46774- 2594 Jun, [facility] [id number] [place] [address] 65837- 6869 May, [facility] [id number] [place] [address] 72481- 9919 Apr, [facility] [id number] [place] [address] 28030- 7581 Apr, Medication monitoring encounter Z51.81 [facility] [id number] [place] [address] 02327- 1619 Mar, Vomiting R11.10 [facility] [id number] [place] [address] 65618- 4526 Mar, [facility] [id number] [place] [address] 67124 2546 18 Feb, 2015 [facility] [id number] [place] [address] 31042- 3505 Feb, UTI (urinary tract infection) 599.0 [facility] [address] [id number] [place] [address]- 5186 Jan, [facility] [address] [id number] [place] [address]- 4506 Jan, [facility] [address] [id number] [place] [address]- 8426 Jan, [facility] [address] [id number] [place] [address]- 4040 Dec, [facility] [address] [id number] [place] [address] Dec, [facility] [address] [id number] [place] [address] Dec, [facility] [address] [id number] [place] [address] Dec, [facility] [address] [id number] [place] [address] Nov, UNKNOWN Nov, [facility] [address] [id number] [place] [address] October, [facility] [address] [id number] [place] [address] Sep, [facility] [address] [id number] [place] [address] Sep, [facility] [address] [id number] [place] [address] Aug, [facility] [address] [id number] [place] [address] Aug, [facility] [address] [id number] [place] [address] Jul, [facility] [address] [id number] [place] [address] Jul, [facility] [place] [facility] [address] [id number] [place] [address] Jul, [facility] [place] [facility] [address] [id number] [place] [address] Jul, [facility] [place] [facility] [address] [id number] [place] [address] Jul, [facility] [place] [facility] [address] [id number] [place] [address] Jun, [facility] [place] [facility] [address] [id number] [place] [address] Jun, [facility] [place] [facility] [address] [id number] [place] [address] Jun, [facility] [place] [facility] [address] [id number] [place] [address] Jun, [facility] [place] [facility] [address] [id number] [place] [address]- 1460 Jun, [facility] [place] [facility] [address] [id number] [place] [address] 6542 Jun, [facility] [place] [facility] [address] [id number], [place] [address]695 Jun, [facility] [place] [facility] [address] [id number], [place] [address] 2219 Jun, [facility] [place] [facility] [address] [id number], [place] [address]262 Jun, [facility] [place] [facility] [address] [id number] [place] [address]- 2601 Jun, [facility] [place] [facility] [address] [id number], [place] [address] 5113 Jun, [facility] [place] [facility] [address] [id number] [place] [address]- 9464 Jun, [facility] [place] [facility] [address] [id number] [place] [address]- 6197 Jun, [facility] [address] [id number] [place] [address]- 8921 Jun, [facility] [address] [id number] [place] [address]- 6898 Jun, [facility] [address] [id number] [place] [address]- 1808 Jun, [facility] [address] [id number] [place] [address]- 4676 Jun, [facility] [address] [id number] [place] [address]- 6879 Jun, [facility] [address] [id number] [place] [address] 1800 May, [facility] [address] [id number] [place] [address]- 5611 May, [facility] [address] [id number] [place] [address]- 4439 May, [facility] [address] [id number] [place] [address]- 1752 May, [facility] [address] [id number] [place] [address]- 9678 May, [facility] [address] [id number] [place] [address]- 8396 16 May, 2014 [facility] [address] [id number] [place] [address]- 2548 May, [facility] [address] [id number] [place] [address]- 1901 15 May, 2014 [facility] [address] [id number] [place] [address]- 9639 May, [facility] [address] [place] [id number] May, [facility] [address] [id number] [place] [address]- 2567 May, [facility] [place] [facility] [address] [id number] [place] [address]- 9848 May, [facility] [place] [facility] [address] [id number] [place] [address]- 4226 May, [facility] [place] [facility] [address] [id number] [place] [address]- 0219 Apr, [facility] [place] [facility] [address] [id number] [place] [address]- 6634 Apr, [facility] [place] [facility] [address] [id number] [place] [address]- 8926 Apr, [facility] [place] [facility] [address] [id number] [place] [address]- 9825 Apr, [facility] [place] [facility] [address] [id number] [place] [address]- 9262 Apr, [facility] [place] [facility] [address] [id number] [place] [address]- 1922 Apr, [facility] [place] [facility] [address] [id number] [place] [address]- 1474 Mar, [facility] [place] [facility] [address] [id number] [place] [address]- 7554 Mar, [facility] [place] [facility] [address] [id number] [place] [address]- 9276 Mar, [facility] [place] [facility] [address] [id number] [place] [address]- 0497 Mar, [facility] [place] [facility] [address] [id number] [place] [address]- 3755 Mar, [facility] [place] [facility] [address] [id number] [place] [address]- 6426 Mar, [facility] [place] [facility] [address] [id number] [place] Feb, [facility] [address] [id number] [place] [address]- 4798 24 Feb, 2014 [facility] [place] [facility] [address] [id number] [place] [address]- 2630 Feb, [facility] [place] [facility] [address] [id number] [place] [address]- 4731 Feb, [facility] [place] [facility] [address] [id number] [place] [address]- 4663 Feb, [facility] [place] [facility] [address] [id number] [place] [address]- 3232 Feb, [facility] [place] [facility] [address] [id number] [place] [address]- 6340 Feb, [facility] [place] [facility] [address] [id number] [place] [address]- 5728 Feb, [facility] [place] [facility] [address] [id number] [place] [address]- 8113 Feb, [facility] [address] [id number] [place] [address]- 2458 Feb, [facility] [address] [place] [id number] Feb, [facility] [place] [facility] [address] [id number] [place] [address]- 4160 Feb, [facility] [place] [facility] [address] [id number] [place] [address]- 9644 Jan, [facility] [place] [facility] [address] [id number] [place] [address]- 2953 Jan, [facility] [place] [facility] [address] [id number] [place] [address]- 5342 Dec, [facility] [place] [facility] [address] [id number] [place] [address]- 9409 Dec, [facility] [place] [facility] [address] [id number] [place] [address]- 5401 Dec, [facility] [place] [facility] [address] [id number] [place] [address]- 9507 Dec, [facility] [place] [facility] [address] [id number] [place] [address]- 1899 Dec, [facility] [place] [facility] [address] [id number] [place] [address]- 5265 Dec, 2013 [facility] [place] [facility] [address] [id number] [place] [address]- 2889 Dec, [facility] [place] [facility] [address] [id number] [place] [address]- 9906 Dec, [facility] [place] [facility] [address] [id number] [place] [address]- 5820 Dec, [facility] [place] [facility] [address] [id number] [place] [address]- 7986 Dec, [facility] [place] [facility] [address] [id number] [place] [address]- 5976 Nov, [facility] [place] [facility] [address] [id number] [place] [address]- 8154 Nov, [facility] [place] [facility] [address] [id number] [place] [address]- 6478 Nov, [facility] [place] [facility] [address] [id number] [place] [address]- 5706 Nov, [facility] [place] [facility] [address] [id number] [place] [address]- 8243 Nov, [facility] [place] [facility] [address] [id number] [place] [address]- 7106 Nov, [facility] [place] [facility] [address] [id number] [place] [address]- 5591 Nov, [facility] [place] [facility] [address] [id number] [place] [address]- 2815 Nov, [facility] [place] [facility] [address] [id number] [place] [address]- 0892 Nov, [facility] [address] [id number] [place] [address]- 4983 Nov, [facility] [place] [facility] [address] [id number] [place] [address]- 2646 Nov, [facility] [place] [facility] [address] [id number] [place] [address]- 8856 Nov, [facility] [place] [facility] [address] [id number] [place] [address]- 3906 Nov, [facility] [place] [facility] [address] [id number] [place] [address]- 6870 Nov, [facility] [place] [facility] [address] [id number] [place] [address]- 5183 October, [facility] [address] [id number] [place] [address]- 8388 October, [facility] [address] [id number] [place] [address]- 6837 October, [facility] [place] [facility] [address] [id number] [place] [address]- 1027 October, [facility] [address] [id number] [place] [address]- 4196 October, [facility] [place] [facility] [address] [id number] [place] [address]- 3135 October, [facility] [place] [facility] [address] [id number] [place] [address]- 2505 October, [facility] [place] [facility] [address] [id number] [place] [address]- 0601 October, [facility] [place] [facility] [address] [id number] [place] [address]- 0684 October, [facility] [place] [facility] [address] [id number] [place] [address]- 5640 October, [facility] [place] [facility] [address] [id number] [place] [address]- 1380 Sep, [facility] [place] [facility] [address] [id number] [place] [address]- 5658 Sep, [facility] [place] [facility] [address] [id number] [place] [address]- 6421 Sep, [facility] [place] [facility] [address] [id number] [place] [address]- 9537 Sep, [facility] [place] [facility] [address] [id number] [place] [address]- 4073 Sep, [facility] [place] [facility] [address] [id number] [place] [address]- 4975 Sep, [facility] [place] [facility] [address] [id number] [place] [address]- 8117 Sep, [facility] [place] [facility] [address] [id number] [place] [address]- 5063 Sep, [facility] [place] [facility] [address] [id number] [place] [address]- 7162 Sep, [facility] [place] [facility] [address] [id number] [place] [address]- 1135 Sep, [facility] [place] [facility] [address] [id number] [place] [address]- 1539 Aug, [facility] [place] [facility] [address] [id number] [place] [address]- 6042 Aug, [facility] [place] [facility] [address] [id number] [place] [address]- 8981 Aug, [facility] [place] [facility] [address] [id number] [place] [address]- 8285 Aug, [facility] [place] [facility] [address] [id number] [place] [address]- 8238 Aug, [facility] [place] [facility] [address] [id number] [place] [address]- 9523 Aug, [facility] [place] [facility] [address] [id number] [place] [address]- 7981 Aug, [facility] [place] [facility] [address] [id number] [place] [address]- 1606 Aug, [facility] [place] [facility] [address] [facility] [id number] [place] [address]- 6076 Aug, [facility] [place] [facility] [address] [id number] [place] [address]- 3943 Jul, [facility] [place] [facility] [address] [id number] [place] [address]- 6176 Jul, [facility] [place] [facility] [address] [id number] [place] [address]- 0496 Jul, [facility] [place] [facility] [address] [facility] [id number] [place] [address]- 2786 Jul, [facility] [place] [facility] [address] [facility] [id number] [place] [address]- 9047 Jul, [facility] [place] [facility] [address] [facility] [id number] [place] [address]- 7873 Jul, [facility] [place] [facility] [address] [facility] [id number] [place] [address]- 6054 Jul, [facility] [place] [facility] [address] [facility] [id number] [place] [address]- 8686 Jul, [facility] [place] [facility] [address] [facility] [id number] [place] [address]- 9554 Jul, [facility] [place] [facility] [address] [id number] [place] [address]- 1793 Jul, [facility] [place] [facility] [address] [facility] [id number] [place] [address]- 4876 Jul, [facility] [place] [facility] [address] [facility] [id number] [place] [address]- 7036 Jul, [facility] [place] [facility] [address] [id number] [place] [address]- 0448 Jul, [facility] [place] [facility] [address] [id number] [place] [address]- 9235 Jul, [facility] [place] [facility] [address] [id number] [place] [address]- 6895 Jul, [facility] [place] [facility] [address] [id number] [place] [address]- 7191 Jul, [facility] [place] [facility] [address] [id number] [place] [address]- 8529 Jun, [facility] [place] [facility] [address] [id number] [place] [address]- 5081 Jun, [facility] [place] [facility] [address] [id number] [place] [address]- 1555 Jun, [facility] [place] [facility] [address] [id number] [place] [address]- 9611 Jun, [facility] [place] [facility] [address] [id number] [place] [address]- 7730 Jun, [facility] [place] [facility] [address] [id number] [place] [address]- 0980 Jun, [facility] [place] [facility] [address] [id number] [place] [address]- 5255 May, [facility] [place] [facility] [address] [id number] [place] [address]- 9514 May, [facility] [place] [facility] [address] [id number] [place] [address]- 9232 May, [facility] [place] [facility] [address] [id number] [place] [address]- 6437 May, [facility] [place] [facility] [address] [id number] [place] [address]- 6286 Apr, [facility] [place] [facility] [address] [id number] [place] [address]- 2040 Apr, [facility] [address] [id number] [place] [address]- 9324 Apr, [facility] [place] [facility] [address] [id number] [place] [address]- 8468 Apr, [facility] [address] [id number] [place] [address]- 0493 Apr, [facility] [place] [facility] [address] [id number] [place] [address]- 8437 Apr, [facility] [address] [id number] [place] [address]- 3871 Apr, [facility] [place] [facility] [address] [id number] [place] [address]- 2334 Apr, [facility] [address] [id number] [place] [address]- 9374 Apr, [facility] [address] [id number] [place] [address]- 7203 18 Apr, 2013 [facility] [place] [facility] [address] [id number] [place] [address]- 4834 Apr, [facility] [address] [id number] [place] [address]- 9209 Apr, [facility] [place] [facility] [address] [id number] [place] [address]- 0579 28 Mar, 2013 [facility] [place] [facility] [address] [id number] [place] [address]- 4373 28 Mar, 2013 [facility] [place] [facility] [address] [id number] [place] [address]- 4510 16 Mar, 2013 [facility] [place] [facility] [address] [id number] [place] [address]- 0515 16 Mar, 2013 [facility] [place] [facility] [address] [id number] [place] [address]- 4783 15 Mar, 2013 [facility] [place] [facility] [address] [id number] [place] [address]- 8512 15 Mar, 2013 [facility] [place] [facility] [address] [id number] [place] [address]- 7621 27 Feb, 2012 [facility] [place] [facility] [address] [id number] [place] [address]- 9472 25 Feb, 2012 [facility] [place] [facility] [address] [id number] [place] [address] 254 25 Feb, 2012 [facility] [place] [facility] [address] [id number] [place] [address]- 6523 23 Feb, 2012 [facility] [place] [facility] [address] [id number] [place] [address]- 0355 17 Feb, 2013 [facility] [place] [facility] [address] [id number] [place] [address]- 2894 10 Feb, 2013 [facility] [place] [facility] [address] [id number] [place] [address]- 4836 04 Feb, 2013 [facility] [place] [facility] [address] [id number] [place] [address]- 5029 30 Jan, 2013 [facility] [place] [facility] [address] [id number] [place] [address]- 0163 Jan, [facility] [place] [facility] [address] [id number] [place] [address]- 4869 Jan, [facility] [place] [facility] [address] [id number], [place] [address]- 9945 14 Jan, 2013 [facility] [place] [facility] [address] [id number] [place] [address]- 3880 Jan, [facility] [place] [facility] [address] [id number] [place] [address]- 7763 Jan, [facility] [place] [facility] [address] [id number] [place] [address]- 7195 Jan, [facility] [place] [facility] [address] [id number] [place] [address]- 3989 Dec, [facility] [address] [id number] [place] [address]- 8875 Dec, [facility] [place] [facility] [address] [id number] [place] [address]- 4940 Dec, [facility] [place] [facility] [address] [id number] [place] [address]- 2669 Dec, [facility] [place] [facility] [address] [id number] [place] [address]- 7130 Dec, [facility] [address] [id number] [place] [address]- 9721 Dec, [facility] [address] [id number] [place] [address]- 2702 Nov, [facility] [address] [id number] [place] [address]- 0402 Nov, [facility] [place] [facility] [address] [id number] [place] [address]- 5868 Nov, [facility] [address] [id number] [place] [address]- 2049 Nov, [facility] [place] [facility] [address] [id number] [place] [address]- 3672 October, [facility] [address] [id number] [place] [address]- 6011 October, [facility] [place] [facility] [address] [id number] [place] [address]- 6087 October, [facility] [place] [facility] [address] [id number] [place] [address]- 1065 October, [facility] [place] [facility] [address] [id number] [place] [address]- 5231 Sep, [facility] [place] [facility] [address] [id number] [place] [address]- 2964 Sep, [facility] [place] [facility] [address] [id number] [place] [address]- 0171 16 Sep, 2012 [facility] [address] [id number] [place] [address]- 8472 12 Sep, 2012 [facility] [place] [facility] [address] [id number] [place] [address]- 0104 04 Sep, 2012 [facility] [address] [id number] [place] [address] 04 Sep, 2012 [facility] [address] [id number] [place] [address] Sep, [facility] [address] [id number] [place] [address] 119[address] Sep, [facility] [address] [id number] [place] [address] Aug, [facility] [place] [facility] [address] [id number] [place] [address] Aug, [facility] [address] [id number] [place] [address] 05 Aug, 2012 [facility] [address] [id number] [place] [address] 18 Jul, 2012 [facility] [address] [id number] [place] [address] 1463 08 Jul, 2012 [facility] [place] [facility] [address] [id number] [place] [address] 07 Jul, 2012 [facility] [address] [id number] [place] [address] 8579 06 Jul, 2012 [facility] [place] [facility] [address] [id number] [place] [address] 7318 05 Jul, [address] [facility] [place] [facility] [address] [id number] [place] [address] Jun, [facility] [place] [facility] [address] [id number], [place] [address] Jun, [facility] [place] [facility] [address] [id number] [place] [address] Jun, [facility] [place] [facility] [address] [id number] [place] [address]- 04[address] May, [facility] [place] [facility] [address] [id number] [place] [address]- 5004 May, [facility] [place] [facility] [address] [id number] [place] [address]- 59[address] May, [facility] [place] [facility] [address] [id number] [place] [address]- [address]398 May, [facility] [place] [facility] [address] [id number] [place] [address]- [address]106 May, [facility] [place] [facility] [address] [id number] [place] [address]- 7380 May, [facility] [place] [facility] [address] [id number] [place] [address]- 4724 May, [facility] [place] [facility] [address] [id number] [place] [address]- 2860 Apr, [facility] [place] [facility] [address] [id number] [place] [address]37 Apr, [facility] [place] [facility] [address] [id number] [place] [address]- 0650 Apr, [facility] [place] [facility] [address] [id number], [place] [address] Apr, [facility] [place] [facility] [address] [id number] [place] [address]156 Apr, [facility] [place] [facility] [address] [id number] [place] [address]- 6767 Apr, [facility] [place] [facility] [address] [id number] [place] [address]- 6611 Apr, [facility] [place] [facility] [address] [id number] [place] [address]- 7816 13 Apr, 2012 [facility] [address] [id number] [place] [address]- 3187 Apr, [facility] [place] [facility] [address] [id number] [place] [address]- 3943 Apr, [facility] [address] [id number] [place] [address]- 2596 Apr, [facility] [place] [facility] [address] [id number] [place] [address] 8954 Mar, [facility] [place] [facility] [address] [id number] [place] [address], [place] [address] Mar, [facility] [place] [facility] [address] [id number] [place] [address]- 7080 Mar, [facility] [place] [facility] [address] [id number] [place] [address]- 0881 Mar, [facility] [place] [facility] [address] [id number] [place] [address]- 0980 Mar, [facility] [place] [facility] [address] [facility] [id number] [place] [address]- 8410 Mar, [facility] [address] [facility] [id number], [place] [address] Mar, [facility] [place] [facility] [address] [id number] [place] [address] 1878 Mar, [facility] [place] [facility] [address] [id number], [place] [address] Mar, [facility] [place] [facility] [address] [id number] [place] [address]- 4216 Mar, [facility] [place] [facility] [address] [facility] [id number] [place] [address]- 5617 Mar, [facility] [place] [facility] [address] [id number] [place] [address]- 3268 Feb, [facility] [place] [facility] [address] [id number] [place] [address]- 1788 27 Feb, 2011 [facility] [place] [facility] [address] [id number] [place] [address]- 1366 27 Feb, 2011 [facility] [place] [facility] [address] [id number] [place] [address]- 3616 26 Feb, 2011 [facility] [place] [facility] [address] [id number] [place] [address] 2546 24 Feb, 2011 [facility] [place] [facility] [address] [id number] [place] [address]- 5152 19 Feb, 2011 [facility] [place] [facility] [address] [id number] [place] [address]- 3686 18 Feb, 2012 [facility] [place] [facility] [address] [id number] [place] [address]- 4999 18 Feb, 2012 [facility] [place] [facility] [address] [id number] [place] [address]- 8267 18 Feb, 2012 [facility] [place] [facility] [address] [id number] [place] [address]- 5710 Jan, [facility] [place] [facility] [address] [id number] [place] [address]- 7704 Jan, [facility] [place] [facility] [address] [id number] [place] [address]- 5920 Jan, [facility] [place] [facility] [address] [id number], [place] [address] Jan, [facility] [place] [facility] [address] [id number] [place] [address]- 2634 Dec, [facility] [place] [facility] [address] [id number] [place] [address]- 9103 Dec, [facility] [place] [facility] [address] [id number] [place] [address]- 5836 Dec, [facility] [place] [facility] [address] [id number] [place] [address]- 2729 Dec, [facility] [place] [facility] [address] [id number] [place] [address]- 5149 Dec, [facility] [place] [facility] [address] [id number] [place] [address]- 0188 Dec, [facility] [place] [facility] [address] [id number] [place] [address]- 5833 Dec, [facility] [place] [facility] [address] [id number] [place] [address]- 8095 Dec, [facility] [place] [facility] [address] [id number] [place] [address]- 0189 Dec, [facility] [place] [facility] [address] [id number] [place] [address]- 6828 Dec, [facility] [place] [facility] [address] [id number] [place] [address]- 1535 Dec, [facility] [place] [facility] [address] [id number] [place] [address] Dec, [facility] [place] [facility] [address] [id number] [place] [address] Dec, [facility] [place] [facility] [address] [id number] [place] [address] Dec, [facility] [place] [facility] [address] [id number] [place] [address] Nov, [facility] [place] [facility] [address] [id number] [place] [address] Nov, [facility] [place] [facility] [address] [id number] [place] [address]186 Nov, [facility] [place] [facility] [address] [id number] [place] [address] Nov, [facility] [place] [facility] [address] [id number] [place] [address] Nov, [facility] [place] [facility] [address] [id number] [place] [address] 07 Nov, 2011 [facility] [address] [id number] [place] [address] October, [facility] [place] [facility] [address] [id number] [place] [address] October, [facility] [address] [id number] [place] [address] October, [facility] [place] [facility] [address] [id number] [place] [address] October, [facility] [address] [id number] [place] [address] Sep, [facility] [place] [facility] [address] [id number] [place] [address] 17 Sep, 2011 [facility] [place] [facility] [address] [id number] [place] [address] 1042 13 Sep, 2011 [facility] [address] [id number] [place] [address] 0719 09 Sep, [address] [facility] [place] [facility] [address] [id number] [place] [address] 5294 03 Sep, [address] [facility] [place] [facility] [address] [id number] [place] 26 Aug, 2011 [facility] [place] [facility] [address] [id number] [place] [address] 8143 26 Aug, [address] [facility] [place] [facility] [address] [id number] [place] [address] 4[address] 21 Aug, 2011 [facility] [place] [facility] [address] [id number] [place] [address]776 20 Aug, 2011 [facility] [place] [facility] [address] [id number] [place] [address]- 4776 13 Aug, 2011 [facility] [place] [facility] [address] [id number] [place] [address]6 Aug, [facility] [address] [facility] [id number][place] [address] Aug, [facility] [place] [facility] [address] [id number] [place] [address] Jul, [facility] [address] [facility] [id number] [place] [address] 6826 Jul, [facility] [address] [facility] [id number], [place] [address] Jul, [facility] [address] [facility] [id number] [place] [address] 0050 Jul, [facility] [address] [facility] [id number], [place] [address] Jun, [address] [id number] Jun, [facility] [address] [facility] [id number], [place] [address] Jun, [facility] [place] [facility] [address] [facility] [id number], [place] [address] Jun, [facility] [address] [facility] [id number], [place] [address] Jun, [facility] [place] [facility] [address] [facility] [id number], [place] [address] Jun, [facility] [place] [facility] [address] [facility] [id number], [place] [address] 2737 Jun, [facility] [place] [facility] [address] [facility] [id number], [place] [address]72 Jun, [facility] [place] [facility] [address] [facility] [id number], [place] [address]- [address] May, [facility] [place] [facility] [address] [facility] [id number], [place] [address]- 8206 May, [facility] [place] [facility] [address] [facility] [id number], [place] [address]- 1823 May, [facility] [place] [facility] [address] [id number] [place] [address]- 4136 May, [facility] [place] [facility] [address] [id number] [place] [address]- 5931 May, [facility] [place] [facility] [address] [id number] [place] [address]- 6076 May, [facility] [place] [facility] [address] [id number] [place] [address]- 5145 May, [facility] [place] [facility] [address] [id number] [place] [address]- 1772 Apr, [facility] [place] [facility] [address] [id number] [place] [address]- 8180 Apr, [facility] [place] [facility] [address] [facility] [id number] [place] [address]- 6252 Apr, [facility] [place] [facility] [address] [id number] [place] [address]- 1688 Mar, [facility] [place] [facility] [address] [facility] [id number] [place] [address]- 5033 Mar, [facility] [place] [facility] [address] [facility] [id number] [place] [address]- 1842 14 Mar, 2011 [facility] [place] [facility] [address] [id number], [place] [address] 8100 Mar, [facility] [place] [facility] [address] [id number], [place] [address]- 6920 Mar, [facility] [place] [facility] [address] [id number] [place] [address]- 6439 Mar, [facility] [place] [facility] [address] [facility] [id number] [place] [address]- 9008 10 Mar, 2011 [facility] [place] [facility] [address] [facility] [id number] [place] [address]- 6865 Jan, [facility] [place] [facility] [address] [id number] [place] [address]- 5519 27 May, 2010 [facility] [place] [facility] [address] [id number] [place] [address]- 7416 21 May, 2010 [facility] [place] [facility] [address] [id number] [place] [address] 2546 13 May, 2010 [facility] [place] [facility] [address] [id number] [place] [address] 2546 13 May, 2010 [facility] [place] [facility] [address] [id number] [place] [address] 2547 10 May, 2010 [facility] [place] [facility] [address] [id number] [place] [address]- 0556 06 May, 2010 [facility] [place] [facility] [address] [id number] [place] [address]- 6197 29 Apr, 2010 [facility] [place] [facility] [address] [id number] [place] [address]- 7201 26 Apr, 2010 [facility] [place] [facility] [address] [id number] [place] [address]- 7589 Apr, [facility] [place] [facility] [address] [id number] [place] [address]- 1644 18 Apr, [address] [facility] [place] [facility] [address] [facility] [id number] [place] [address]- 9694 15 Apr, 2010 [facility] [place] [facility] [address] [id number] [place] [address]- 6595 Apr, [facility] [place] [facility] [address] [id number] [place] [address] 2545 Apr, [facility] [place] [facility] [address] [id number] [place] [address] 2546 Apr, [facility] [place] [facility] [address] [facility] [id number] [place] [address]- 2546 Apr, [facility] [place] [facility] [address] [id number] [place] [address]- 2545 Apr, [facility] [address] [id number], [place] [address] Mar, [facility] [address] [facility] [id number], [place] [address]- 1706 Mar, [facility] [address] [facility] [id number], [place] [address]- 5215 Mar, [facility] [address] [facility] [id number], [place] [address]- 4681 Mar, [facility] [address] [facility] [id number], [place] [address]- 0111 Mar, [facility] [id number], [place] [address] 8648 Dec, [facility] [address] [id number], [place] [address]- [address]763 Nov, IMMUNIZATIONS No Known Immunizations SOCIAL HISTORY [...] surgery and skin graft, cholecysectomy Hospitalization History [facility] 12/2016 Hospitalization History [facility] 08/2017
--- OUTSIDE RECORDS SUMMARY | 2018-02-04 13:16 | XMS REPORT ---
Author Author KATHY LUCILA Organization [facility] [place] Address [address] [place] [address] Care Team Providers Care Aerial Hurricane Hunter Name Role Phone ESTRELLITALUCILA ADAN Unavailable PROBLEMS Type Condition ICD9-CM Code FQO55-CY Code Onset Dates Condition Status SNOMED Code Problem History of colon polyps Z86.010 Active 719602590 Problem Factitious disorder imposed on self, recurrent episode F68.10 Active 99404657 Problem Anemia, unspecified type D64.9 Active 156963696 Problem Allergic state, subsequent encounter T78.40XD Active 335485722 Problem Unspecified psychosis not due to a substance or known physiological condition F29 Active 76762402 Problem Age-related osteoporosis without current pathological fracture M81.0 Active 54494978 Problem Personality disorder F60.9 Active 16351689 Problem Iron deficiency anemia, unspecified iron deficiency anemia type D50.9 Active 87002355 Problem Anxiety F41.9 Active 03562021 Problem History of CVA with residual deficit I69.30 Active 059804686 Problem Insomnia, unspecified type G47.00 Active 179870843 Problem Perennial allergic rhinitis, unspecified allergic rhinitis trigger J30.89 Active 907655712 Problem Seizure disorder G40.909 Active 420303560 Problem Chronic kidney disease, unspecified stage N18.9 Active 940085475 Problem Back pain M54.9 Active 777098579 Problem Gastroesophageal reflux disease without esophagitis K21.9 Active 841380087 ALLERGIES Substance Reaction Event Type Date Status Vibramycin Unknown Drug Allergy Aug, Active Tegretol Unknown Drug Allergy Aug, Active SulfADIAZINE Unknown Drug Allergy Aug, Active Penicillin V Potassium Unknown Drug Allergy Aug, Active Darvocet A500 Unknown Drug Allergy Aug, Active Codeine Phosphate Unknown Drug Allergy Aug, Active Aspirin Unknown Drug Allergy Aug, Active ENCOUNTERS Encounter Location Date Diagnosis [facility] [place] [address] [address] Jan, [facility] [place] [address] [address] Dec, [facility] [place] [address] [facility] [id number] [address] Dec, [facility] [place] [address] [address] Dec, Back pain M54.9 [facility] [place] [address] [address] Dec, Factitious disorder imposed on self, recurrent episode F68.10 ; Personality disorder F60.9 ; Insomnia, unspecified type G47.00 and Anxiety F41.9 [facility] [place] [address] [address] Nov, Unspecified psychosis not due to a substance or known physiological condition F29 ; Personality disorder F60.9 and Factitious disorder imposed on self, recurrent episode F68.10 [facility] [place] [address] [address] Nov, Back pain M54.9 [facility] [place] [address] [address] 6469 Nov, Unspecified psychosis not due to a substance or known physiological condition F29 ; Personality disorder F60.9 and Factitious disorder imposed on self, recurrent episode F68.10 [facility] [place] [address] [address] 6[address] October, [facility] [place] [address] [address] 4[address] October, [facility] [place] [address] [address] October, Unspecified psychosis not due to a substance or known physiological condition F29 ; Personality disorder F60.9 and Factitious disorder imposed on self, recurrent episode F68.10 [facility] [place] [id number] [place] [address]3593- 8888 October, Back pain M54.9 [facility] [place] [id number] [place] [address] 16971- 7621 October, Seizure disorder G40.909 ; Back pain M54.9 and Allergic state, subsequent encounter T78.40XD [facility] [place] [address] [address] October, [facility] [place] [id number] [place] [address] 20025- 3508 Sep, Back pain M54.9 [facility] [place] [id number] [place] [address] 64757- 5832 Sep, Unspecified psychosis not due to a substance or known physiological condition F29 ; Personality disorder F60.9 and Factitious disorder imposed on self, recurrent episode F68.10 [facility] [place] [id number] [place] [address] 73590- 3796 Sep, [facility] [place] [id number] [place] [address] 65521- 6318 Sep, [facility] [place] [id number] [place] [address] 71986- 3236 Sep, [facility] [place] [id number] [place] [address] 86020- 1374 Sep, [facility] [place] [id number] [place] [address] 39325- 9749 Aug, [facility] [place] [id number] [place] [address] 89550- 5819 Aug, Back pain M54.9 [facility] [place] [id number] [place] [address] 77831- 7634 Aug, Factitious disorder imposed on self, recurrent episode F68.10 ; Personality disorder F60.9 ; Insomnia, unspecified type G47.00 and Anxiety F41.9 [facility] [place] [id number] [address] Aug, Back pain M54.9 ; Iron deficiency anemia, unspecified iron deficiency anemia type D50.9 ; Chronic kidney disease, unspecified stage N18.9 and Breast cancer screening Z12.31 [facility] [id number] [address] Jul, Back pain M54.9 [facility] [address] [id number] [id number] Jul, [facility] [id number] [id number] Jul, [facility] [address] [id number] [id number] Jun, Back pain M54.9 [facility] [id number] [place] [id number] Jun, [facility] [address] [id number] [id number] Jun, Back pain M54.9 [facility] [place] [address] [id number] Jun, Back pain M54.9 ; Seizure disorder G40.909 and Age-related osteoporosis without current pathological fracture M81.0 [facility] [id number] [place] [id number] May, [facility] [place] [address] [address] 06 May, 2017 Back pain M54.9 [facility] [place] [address] [id number] [address] Apr, Back pain M54.9 ; Encounter for immunization Z23 ; Gastroesophageal reflux disease without esophagitis K21.9 ; Age-related osteoporosis without current pathological fracture M81.0 and Chronic pruritus L29.9 [facility] [place] [address] [address]- 1488 Apr, History of CVA with residual deficit I69.30 [facility] [place] [id number] [place] [address] 78961- 3414 16 Apr, 2017 Factitious disorder imposed on self, recurrent episode F68.10 and Personality disorder F60.9 [facility] [id number] [place] [address] [id number] 08 Apr, 2017 Back pain M54.9 [facility] [place] [id number] [place] [address] 36118- 5555 Mar, Factitious disorder imposed on self, recurrent episode F68.10 [facility] [place] [id number] [place] [address] 70432- 1579 Mar, [facility] [id number] [place] [address] [id number] Mar, [facility] [id number] [place] [address] [id number] Mar, Back pain M54.9 [facility] [place] [id number] [place] [address] 86102- 9173 05 Mar, 2017 Back pain M54.9 ; Seizure disorder G40.909 and Age-related osteoporosis without current pathological fracture M81.0 [facility] [place] [id number] [place] [address] 24440- 0325 Feb, History of CVA with residual deficit I69.30 [facility] [place] [id number] [place] [address] 57004- 6732 Feb, Factitious disorder imposed on self, recurrent episode F68.10 and Personality disorder F60.9 [facility] [place] [id number] [place] [address] 07304- 6364 15 Feb, 2017 Back pain M54.9 [facility] [place] [id number] [place] [address] 24068- 1936 06 Feb, 2017 [facility] [place] [id number] [place] [address] 98504- 2024 Jan, [facility] [address] [place] [id number] Jan, Age- related osteoporosis without current pathological fracture M81.0 and Allergic state, subsequent encounter T78.40XD [facility] [place] [address] [address]- 8611 Jan, Factitious disorder imposed on self, recurrent episode F68.10 and Personality disorder F60.9 [facility] [place] [id number] [place] [address] 56379- 7661 Dec, Back pain M54.9 [facility] [place] [id number] [place] [address] 32457- 8526 Dec, Personality disorder F60.9 and Factitious disorder imposed on self, recurrent episode F68.10 [facility] [id number] [id number] Dec, Back pain M54.9 [facility] [id number] [place] [address] [id number] Dec, [facility] [id number] [place] [address] [id number] Dec, [facility] [place] [address] [address]- 9825 Dec, [facility] [place] [address] [address]- 7442 Nov, [facility] [place] [id number] [place] [address] 21360- 3749 Nov, Back pain M54.9 ; Anemia, unspecified type D64.9 and History of colon polyps Z86.010 [facility] [place] [address] [address]- 3770 Nov, Back pain M54.9 [facility] [id number] [id number] October, Back pain M54.9 [facility] [address] [place] [id number] October, Back pain M54.9 and Gastroesophageal reflux disease without esophagitis K21.9 [facility] [id number] [place] [id number] Sep, [facility] [place] [address] [facility] [id number] [place] [address]- 8942 Sep, [facility] [place] [id number] [place] [address] 92295- 2900 Sep, [facility] [place] [address] [facility] [id number] [place] [address] 29493- 4775 Sep, [facility] [place] [id number] [place] [address] 19473- 4094 Sep, [facility] [place] [id number] [place] [address] 82303- 0607 Sep, Seizure disorder G40.909 [facility] [place] [id number] [place] [address] 19137- 3689 Sep, Back pain M54.9 [facility] [place] [id number] [place] [address] 39584- 3843 Sep, [facility] [place] [address] [id number] [address]- 7865 Aug, Back pain M54.9 [facility] [place] [address] [address]- 0909 29 Aug, 2016 Seizure disorder G40.909 [facility] [address] [id number] [id number] Aug, [facility] [id number] [place] [address] [id number] 16 Aug, 2016 Back pain M54.9 [facility] [address] [id number] [id number] 14 Aug, 2016 Back pain M54.9 [facility] [address] [id number] [id number] Aug, Back pain M54.9 [facility] [address] [place] [id number] Jul, Weakness R53.1 [place] [id number] [place] [address] 83518- 3898 Jul, Seizure disorder G40.909 [place] [id number] [place] [address] 13973- 9532 Jul, [place] [id number] [place] [address] 71481- 2091 Jul, Breast cancer screening Z12.39 [place] [id number] [place] [address] 68957- 4444 Jul, [place] [id number] [place] [address] 80608- 4392 Jul, [place] [id number] [place] [address] 99378- 4787 Jul, [place] [id number] [place] [address] 07803- 4386 Jul, Seizure disorder G40.909 ; Fatigue, unspecified type R53.83 ; Perennial allergic rhinitis, unspecified allergic rhinitis trigger J30.89 and Chronic kidney disease, unspecified stage N18.9 [place] [id number] [place] [address] 46821- 8765 Jul, [place] [id number] [place] [address] 28669- 0064 Jul, Seizure disorder G40.909 [place] [id number] [place] [address] 18303- 4853 Jun, [place] [id number] [place] [address] 01855- 7789 Jun, [facility] [address] [id number] Jun, Perennial allergic rhinitis, unspecified allergic rhinitis trigger J30.89 [facility] [id number] [place] [address] [id number] Jun, [facility] [place] [id number] [place] [address] 58993- 6507 Jun, Seizure disorder G40.909 [facility] [id number] [place] [address] [id number] Jun, [facility] [id number] [place] [address] [id number] May, [facility] [place] [id number] [place] [address] 02231- 5946 May, [facility] [place] [id number] [place] [address] 54652- 4220 May, [facility] [place] [id number] [place] [address] 96456- 2173 May, [facility] [place] [id number] [place] [address] 80951- 8383 May, History of CVA with residual deficit I69.30 [facility] [place] [id number] [place] [address] 54941- 2206 May, [facility] [place] [id number] [place] [address] 50149- 7389 May, [facility] [place] [id number] [place] [address] 79727- 8948 May, [facility] [place] [id number] [place] [address] 86501- 6052 May, Seizure disorder G40.909 [facility] [place] [id number] [place] [address] 89610- 4566 May, [facility] [facility] [address] [place] [address] May, Back pain M54.9 and Seizure disorder G40.909 [facility] [place] [id number] [place] [address] 53438- 2596 Apr, [facility] [place] [address] [facility] [id number] [address]- 3495 Apr, Back pain M54.9 [facility] [place] [address] [facility] [id number] [place] [address]- 8559 Mar, [employer] [address] [place] [address] Mar, Insomnia, unspecified type G47.00 [facility] [place] [address] [id number] [place] [address]- 7702 Mar, [facility] [place] [address] [facility] [id number] [place] [address] 87505- 7272 Feb, [facility] [place] [address] [facility] [id number] [place] [address]- 8250 Feb, [facility] [place] [id number] [place] [address] 63665- 3884 Feb, [facility] [place] [address] [facility] [id number] [place] [address]- 7656 Jan, [facility] [place] [address] [facility] [id number] [place] [address]- 6466 Jan, [employer] [address] [place] [address] Jan, Seizure disorder G40.909 and Back pain M54.9 [facility] [place] [address] [facility] [id number] [place] [address]- 5841 Dec, [facility] [place] [address] [facility] [id number] [place] [address]- 1404 Dec, [facility] [place] [address] [facility] [id number] [place] [address]- 6477 Dec, [facility] [place] [address] [facility] [id number] [place] [address]- 5593 Nov, [facility] [place] [address] [facility] [id number] [place] [address]- 1488 Nov, [facility] [place] [id number] [place] [address] 56232- 4526 Nov, Back pain M54.9 [facility] [place] [id number] [place] [address] 12309- 3576 October, [facility] [place] [id number] [place] [address] 11278- 3699 October, Back pain M54.9 [facility] [place] [id number] [place] [address] 21107- 6487 October, Seizure disorder G40.909 and B12 deficiency E53.8 [facility] [place] [id number] [place] [address] 67761- 7113 Sep, History of CVA with residual deficit I69.30 [facility] [place] [id number] [place] [address] 76364- 6913 Sep, [facility] [place] [id number] [place] [address] 22404- 7736 Sep, [facility] [place] [id number] [place] [address] 57670- 2843 Sep, Back pain M54.9 [facility] [place] [id number] [place] [address] 14665- 5750 Sep, Seizure disorder G40.909 [facility] [place] [id number] [place] [address] 25306- 0462 Aug, Back pain M54.9 [facility] [place] [id number] [place] [address] 03948- 2256 Aug, Seizure disorder G40.909 [facility] [place] [id number] [place] [address] 74224- 1856 16 Aug, 2015 Back pain M54.9 [facility], [place] [id number] [place] [address] 50394- 1981 14 Aug, 2015 Heart failure, unspecified I50.9 [facility], [place] [id number] [place] [address] 33135- 7365 14 Aug, 2015 Medication monitoring encounter Z51.81 [facility], [place] [id number] [place] [address] 66191- 4699 Jul, [facility], [place] [id number] [place] [address] 90870- 3520 Jul, Seizure disorder G40.909 [facility], [place] [id number] [place] [address] 71276- 2558 Jul, Back pain M54.9 [facility], [place] [id number] [place] [address] 92138- 3307 Jun, [facility], [place] [id number] [place] [address] 34316- 4681 Jun, [facility], [place] [id number] [place] [address] 83410- 4033 Jun, Mental status change R41.82 ; History of CVA with residual deficit I69.30 ; Back pain M54.9 and Seizure disorder G40.909 [place] [id number] [place] [address] 17622- 9948 Jun, [facility], [place] [id number] [place] [address] 48493- 7191 May, [facility], [place] [id number] [place] [address] 98296- 3446 Apr, [facility], [place] [id number] [place] [address] 72875- 2710 Apr, Medication monitoring encounter Z51.81 [facility], [place] [id number] [place] [address] 88450- 6007 Mar, Vomiting R11.10 [facility], [place] [id number] [place] [address] 73710- 9423 Mar, [facility] [place] [facility] [address] [id number] [place] [address] Feb, [facility] [address] [id number] [place] [address] 3486 Feb, UTI (urinary tract infection) 599.0 [facility] [address] [id number] [place] [address]3 Jan, [facility] [address] [id number] [place] [address]159 Jan, [facility] [address] [id number] [place] [address]- 6466 Jan, [facility] [address] [id number] [place] [address] Dec, [facility] [address] [id number] [place] [address] 2006 Dec, [facility] [address] [id number] [place] [address] Dec, [facility] [address] [id number] [place] [address] 0286 Dec, [facility] [address] [id number] [place] [address] Nov, UNKNOWN Nov, [facility] [address] [id number] [place] [address] 8426 October, [facility] [address] [id number] [place] [address] 8073 Sep, [facility] [address] [id number] [place] [address] Sep, [facility] [address] [id number] [place] [address] 2519 Aug, [facility] [place] [facility] [address] [id number] [place] [address] 7412 Aug, [facility] [address] [id number] [place] [address]- [address] 19 Jul, 2014 [facility] [place] [facility] [address] [id number] [place] [address] 0236 Jul, 2014 [facility] [place] [facility] [address] [id number] [place] [address] Jul, 2014 [facility] [place] [facility] [address] [id number] [place] [address]- 1646 Jul, [facility] [place] [facility] [address] [id number] [place] [address]- 0683 Jul, [facility] [place] [facility] [address] [id number] [place] [address] Jun, [facility] [place] [facility] [address] [id number] [place] [address]- 1334 Jun, [facility] [place] [facility] [address] [id number] [place] [address]- 9041 Jun, [facility] [place] [facility] [address] [id number] [place] [address] 9890 Jun, [facility] [place] [facility] [address] [id number] [place] [address]- 8060 Jun, [facility] [place] [facility] [address] [id number] [place] [address]- 5623 Jun, [facility] [place] [facility] [address] [id number] [place] [address]- 4627 Jun, [facility] [place] [facility] [address] [id number] [place] [address]- 2549 Jun, [facility] [place] [facility] [address] [id number] [place] [address]- 7923 Jun, [facility] [place] [facility] [address] [id number] [place] [address]- 1829 Jun, [facility] [place] [facility] [address] [id number] [place] [address]- 5293 Jun, [facility] [place] [facility] [address] [id number] [place] [address]- 0264 Jun, [facility] [place] [facility] [address] [id number] [place] [address]- 6572 Jun, [facility] [place] [facility] [address] [id number] [place] [address]- 1588 Jun, [facility] [place] [facility] [address] [id number] [place] [address]- 4541 Jun, [facility] [place] [facility] [address] [id number] [place] [address]- 3060 Jun, [facility] [place] [facility] [address] [id number] [place] [address]- 1883 Jun, [facility] [place] [facility] [address] [id number] [place] [address]- 5122 Jun, [facility] [place] [facility] [address] [id number] [place] [address]- 8265 May, [facility] [place] [facility] [address] [id number] [place] [address]- 4282 30 May, 2014 [facility] [place] [facility] [address] [id number] [place] [address]- 8617 30 May, 2014 [facility] [place] [facility] [address] [id number] [place] [address]- 7454 30 May, 2014 [facility] [place] [facility] [address] [id number] [place] [address]- 9158 19 May, 2014 [facility] [place] [facility] [address] [id number] [place] [address]- 5088 16 May, 2014 [facility] [place] [facility] [address] [id number] [place] [address] 16 May, 2014 [facility] [place] [facility] [address] [id number] [place] [address]- 8437 15 May, 2014 [facility] [place] [facility] [address] [id number] [place] [address]- 1622 May, [facility] [address] [facility] [place] [id number] May, [facility] [place] [facility] [address] [id number] [place] [address]- 5714 May, [facility] [place] [facility] [address] [id number] [place] [address]- 0251 May, [facility] [place] [facility] [address] [id number] [place] [address]- 0630 May, [facility] [place] [facility] [address] [id number] [place] [address]- 5969 Apr, [facility] [place] [facility] [address] [id number] [place] [address]- 9108 Apr, [facility] [place] [facility] [address] [id number] [place] [address]- 5552 Apr, [facility] [place] [facility] [address] [id number] [place] [address]- 1916 Apr, [facility] [place] [facility] [address] [id number] [place] [address]- 2089 Apr, [facility] [place] [facility] [address] [id number] [place] [address]- 6334 Apr, [facility] [place] [facility] [address] [id number] [place] [address] 9931 Mar, [facility] [place] [facility] [address] [id number] [place] [address]- 3154 Mar, [facility] [place] [facility] [address] [id number] [place] [address]- 1999 Mar, [facility] [place] [facility] [address] [id number] [place] [address]- 6599 Mar, [facility] [place] [facility] [address] [id number] [place] [address]- 7437 Mar, [facility] [place] [facility] [address] [id number] [place] [address] 1965 Mar, [facility] [address] [id number] [place] [address]- 2349 24 Feb, 2014 [facility] [address] [id number] [place] [address]- 2164 24 Feb, 2014 [facility] [address] [id number] [place] [address]- 4227 Feb, [facility] [address] [id number] [place] [address]- 0928 Feb, [facility] [address] [id number] [place] [address]- 6079 Feb, [facility] [address] [id number] [place] [address]- 7898 Feb, [facility] [address] [id number] [place] [address]- 4026 Feb, [facility] [address] [id number] [place] [address]- 3796 Feb, [facility] [address] [id number] [place] [address]- 1240 Feb, [facility] [address] [id number] [place] [address]- 0689 Feb, [facility] [address] [place] [id number] Feb, [facility] [address] [id number] [place] [address]- 5066 Feb, [facility] [address] [id number] [place] [address]- 6811 Jan, [facility] [address] [id number] [place] [address]- 1814 Jan, [facility] [address] [id number] [place] [address]- 2832 Dec, [facility] [place] [facility] [address] [id number] [place] [address]- 0050 Dec, 2013 [facility] [place] [facility] [address] [id number] [place] [address]- 8666 Dec, 2013 [facility] [place] [facility] [address] [id number] [place] [address]- 1498 Dec, 2013 [facility] [place] [facility] [address] [id number] [place] [address]- 0601 Dec, 2013 [facility] [place] [facility] [address] [id number] [place] [address]- 5870 Dec, 2013 [facility] [place] [facility] [address] [id number] [place] [address]- 6081 Dec, [facility] [place] [facility] [address] [id number] [place] [address]- 7008 Dec, [facility] [place] [facility] [address] [id number] [place] [address]- 5123 Dec, [facility] [place] [facility] [address] [id number] [place] [address]- 4723 Dec, [facility] [place] [facility] [address] [id number] [place] [address]- 7861 Nov, [facility] [place] [facility] [address] [id number] [place] [address]- 2878 Nov, [facility] [place] [facility] [address] [id number] [place] [address]- 8273 Nov, [facility] [place] [facility] [address] [id number] [place] [address]- 1311 Nov, [facility] [place] [facility] [address] [id number] [place] [address]- 5649 Nov, [facility] [place] [facility] [address] [id number] [place] [address]- 5806 Nov, [facility] [place] [facility] [address] [id number] [place] [address]- 7883 Nov, [facility] [place] [facility] [address] [id number] [place] [address]- 0353 Nov, [facility] [place] [facility] [address] [id number] [place] [address]- 0584 Nov, [facility] [place] [facility] [address] [id number] [place] [address]- 7936 Nov, [facility] [place] [facility] [address] [id number] [place] [address]- 3362 Nov, [facility] [place] [facility] [address] [id number] [place] [address]- 3510 Nov, [facility] [place] [facility] [address] [id number] [place] [address]- 7174 Nov, [facility] [place] [facility] [address] [id number] [place] [address]- 4944 Nov, [facility] [place] [facility] [address] [id number] [place] [address]- 8354 October, [facility] [place] [facility] [address] [id number] [place] [address]- 4099 October, [facility] [place] [facility] [address] [id number] [place] [address]- 1534 October, [facility] [place] [facility] [address] [id number] [place] [address]- 8523 October, [facility] [place] [facility] [address] [id number] [place] [address]- 9766 October, [facility] [place] [facility] [address] [id number] [place] [address]- 1133 October, [facility] [place] [facility] [address] [id number] [place] [address]- 5169 October, [facility] [place] [facility] [address] [id number] [place] [address]- 4126 October, [facility] [place] [facility] [address] [id number] [place] [address]- 2557 October, [facility] [place] [facility] [address] [id number] [place] [address]- 0294 October, [facility] [place] [facility] [address] [id number] [place] [address]- 5865 Sep, [facility] [place] [facility] [address] [id number] [place] [address]- 6693 Sep, [facility] [place] [facility] [address] [id number] [place] [address]- 3421 Sep, [facility] [place] [facility] [address] [id number] [place] [address]- 1277 Sep, [facility] [place] [facility] [address] [id number] [place] [address]- 4708 Sep, [facility] [place] [facility] [address] [id number] [place] [address]- 8374 Sep, [facility] [place] [facility] [address] [id number] [place] [address]- 3723 Sep, [facility] [place] [facility] [address] [id number] [place] [address]- 2766 Sep, [facility] [place] [facility] [address] [id number] [place] [address]- 5429 Sep, [facility] [place] [facility] [address] [id number] [place] [address]- 2525 Sep, [facility] [place] [facility] [address] [id number] [place] [address]- 3036 Aug, [facility] [place] [facility] [address] [id number] [place] [address]- 4874 Aug, [facility] [place] [facility] [address] [id number] [place] [address]- 5779 Aug, [facility] [place] [facility] [address] [id number] [place] [address]- 9109 Aug, [facility] [place] [facility] [address] [id number] [place] [address]- 3845 Aug, [facility] [place] [facility] [address] [id number] [place] [address]- 3791 Aug, [facility] [place] [facility] [address] [id number] [place] [address]- 1948 Aug, [facility] [place] [facility] [address] [id number] [place] [address]- 8561 Aug, [facility] [place] [facility] [address] [id number] [place] [address]- 6784 Aug, [facility] [place] [facility] [address] [id number] [place] [address]- 6903 Jul, [facility] [place] [facility] [address] [id number] [place] [address]- 4061 Jul, [facility] [place] [facility] [address] [id number] [place] [address]- 2563 Jul, [facility] [place] [facility] [address] [id number] [place] [address]- 1478 Jul, [facility] [place] [facility] [address] [id number] [place] [address]- 8403 Jul, [facility] [place] [facility] [address] [id number] [place] [address]- 0197 Jul, [facility] [place] [facility] [address] [id number] [place] [address]- 2425 Jul, [facility] [place] [facility] [address] [id number] [place] [address]- 7733 Jul, [facility] [place] [facility] [address] [id number] [place] [address]- 6753 Jul, [facility] [place] [facility] [address] [facility] [id number] [place] [address]- 3889 Jul, [facility] [place] [facility] [address] [id number] [place] [address]- 5533 06 Jul, 2013 [facility] [place] [facility] [address] [id number] [place] [address]- 5824 Jul, [facility] [place] [facility] [address] [id number] [place] [address]- 8276 Jul, [facility] [place] [facility] [address] [id number] [place] [address]- 8236 Jul, [facility] [place] [facility] [address] [id number] [place] [address]- 2332 Jul, [facility] [place] [facility] [address] [id number] [place] [address]- 9644 Jul, [facility] [place] [facility] [address] [id number] [place] [address]- 3311 Jun, [facility] [place] [facility] [address] [id number] [place] [address]- 7158 Jun, [facility] [place] [facility] [address] [id number] [place] [address]- 8649 Jun, [facility] [place] [facility] [address] [id number] [place] [address]- 9863 Jun, [facility] [place] [facility] [address] [facility] [id number] [place] [address]- 2571 Jun, [facility] [place] [facility] [address] [id number] [place] [address]- 7787 Jun, [facility] [place] [facility] [address] [id number] [place] [address]- 2189 May, [facility] [place] [facility] [address] [id number] [place] [address]- 2926 May, [facility] [place] [facility] [address] [id number] [place] [address]- 9094 May, [facility] [place] [facility] [address] [id number] [place] [address]- 6007 May, [facility] [place] [facility] [address] [id number] [place] [address]- 8086 Apr, [facility] [place] [facility] [address] [id number] [place] [address]- 8808 Apr, [facility] [place] [facility] [address] [facility] [id number] [place] [address]- 6403 Apr, [facility] [place] [facility] [address] [id number] [place] [address]- 9128 Apr, [facility] [place] [facility] [address] [id number] [place] [address]- 8422 Apr, [facility] [place] [facility] [address] [id number] [place] [address]- 2859 Apr, [facility] [place] [facility] [address] [id number] [place] [address]- 2205 Apr, [facility] [place] [facility] [address] [id number] [place] [address]- 6160 Apr, [facility] [place] [facility] [address] [id number] [place] [address]- 9719 Apr, [facility] [place] [facility] [address] [id number] [place] [address]- 6364 Apr, [facility] [place] [facility] [address] [id number] [place] [address]- 3271 Apr, [facility] [place] [facility] [address] [id number] [place] [address]- 1852 Apr, [facility] [place] [facility] [address] [id number] [place] [address]- 4814 Mar, [facility] [place] [facility] [address] [id number] [place] [address]- 0415 28 Mar, 2013 [facility] [place] [facility] [address] [id number] [place] [address]- 3361 16 Mar, 2013 [facility] [place] [facility] [address] [id number] [place] [address]- 9552 16 Mar, 2013 [facility] [place] [facility] [address] [id number] [place] [address]- 7256 15 Mar, 2013 [facility] [place] [facility] [address] [id number] [place] [address] 2546 15 Mar, 2013 [facility] [place] [facility] [address] [id number] [place] [address] 2549 27 Feb, 2012 [facility] [place] [facility] [address] [id number] [place] [address] 2546 25 Feb, 2012 [facility] [place] [facility] [address] [id number] [place] [address]- 7700 25 Feb, 2013 [facility] [place] [facility] [address] [id number] [place] [address]- 1609 23 Feb, 2013 [facility] [place] [facility] [address] [id number] [place] [address]- 8847 17 Feb, 2013 [facility] [place] [facility] [address] [id number] [place] [address]- 5575 10 Feb, 2013 [facility] [place] [facility] [address] [id number] [place] [address] 2543 04 Feb, 2013 [facility] [place] [facility] [address] [id number] [place] [address]- 4651 30 Jan, 2013 [facility] [place] [facility] [address] [id number] [place] [address] 254 20 Jan, 2013 [facility] [place] [facility] [address] [id number] [place] [address]- 2542 15 Jan, 2013 [facility] [place] [facility] [address] [id number] [place] [address] 2547 14 Jan, 2013 [facility] [place] [facility] [address] [id number] [place] [address]- 2543 Jan, [facility] [place] [facility] [address] [id number] [place] [address]- 254 Jan, [facility] [place] [facility] [address] [id number] [place] [address]- 2885 Jan, [facility] [address] [id number] [place] [address]- 9408 Dec, [facility] [address] [id number] [place] [address]- 1269 Dec, [facility] [address] [id number] [place] [address]- 2969 Dec, [facility] [address] [id number] [place] [address]- 8974 Dec, [facility] [address] [id number] [place] [address]- 9398 Dec, [facility] [address] [id number] [place] [address] Dec, [facility] [address] [id number] [place] [address] Nov, [facility] [address] [id number] [place] [address] Nov, [facility] [address] [id number] [place] [address] Nov, [facility] [place] [facility] [address] [id number] [place] [address] Nov, [facility] [place] [facility] [address] [id number] [place] [address] October, [facility] [place] [facility] [address] [id number] [place] [address] October, [facility] [place] [facility] [address] [id number] [place] [address] October, [facility] [place] [facility] [address] [id number] [place] [address] October, [facility] [place] [facility] [address] [id number] [place] [address] 30 Sep, 2012 [facility] [address] [id number] [place] [address] Sep, [facility] [address] [id number] [place] [address] 16 Sep, 2012 [facility] [address] [id number] [place] [address] Sep, [facility] [place] [facility] [address] [id number] [place] [address] Sep, [facility] [address] [id number] [place] [address] Sep, [facility] [address] [id number] [place] [address] Sep, [facility] [address] [id number] [place] [address] Sep, [facility] [address] [id number] [place] [address] Aug, [facility] [address] [id number] [place] [address] Aug, [facility] [address] [facility] [id number] [place] [address] Aug, [facility] [address] [id number] [place] [address] 18 Jul, 2012 [facility] [place] [facility] [address] [id number] [place] [address] Jul, [facility] [place] [facility] [address] [id number] [place] [address] 07 Jul, 2012 [facility] [place] [facility] [address] [id number] [place] [address] Jul, [facility] [place] [facility] [address] [facility] [id number] [place] [address] 05 Jul, 2012 [facility] [place] [facility] [address] [id number] [place] [address] Jun, [facility] [place] [facility] [address] [id number] [place] [address] Jun, [facility] [place] [facility] [address] [id number] [place] [address] Jun, [facility] [place] [facility] [address] [id number] [place] [address] May, [facility] [place] [facility] [address] [id number] [place] [address] May, [facility] [place] [facility] [address] [id number] [place] [address] May, [facility] [place] [facility] [address] [id number] [place] [address] May, [facility] [place] [facility] [address] [id number] [place] [address] 2846 May, [facility] [place] [facility] [address] [id number] [place] [address] May, [facility] [place] [facility] [address] [id number] [place] [address] May, [facility] [place] [facility] [address] [id number] [place] [address] Apr, [facility] [place] [facility] [address] [id number] [place] [address] Apr, [facility] [place] [facility] [address] [id number] [place] [address] Apr, [facility] [place] [facility] [address] [id number] [place] [address] Apr, [facility] [place] [facility] [address] [id number] [place] [address] Apr, [facility] [place] [facility] [address] [id number] [place] [address] Apr, [facility] [place] [facility] [address] [id number] [place] [address] Apr, [facility] [place] [facility] [address] [id number] [place] [address] Apr, [facility] [place] [facility] [address] [facility] [id number] [place] [address] Apr, [facility] [place] [facility] [address] [id number] [place] [address] Apr, [facility] [place] [facility] [address] [id number] [place] [address]- [address]645 Apr, [facility] [place] [facility] [address] [id number] [place] [address]- [address] Mar, [facility] [place] [facility] [address] [id number] [place] [address] Mar, [facility] [place] [facility] [address] [id number] [place] [address]- [address] Mar, [facility] [place] [facility] [address] [id number] [place] [address] Mar, [facility] [place] [facility] [address] [id number] [place] [address]- [address] Mar, [facility] [place] [facility] [address] [id number] [place] [address]- [address]31 Mar, [facility] [place] [facility] [address] [id number] [place] [address]- [address] Mar, [facility] [place] [facility] [address] [id number] [place] [address] Mar, [facility] [place] [facility] [address] [facility] [id number] [place] [address] Mar, [facility] [place] [facility] [address] [id number] [place] [address] Mar, [facility] [place] [facility] [address] [id number] [place] [address]60 04 Mar, 2012 [facility] [address] [id number] [place] [address] 2011 [facility] [place] [facility] [address] [id number] [place] [address] 2546 27 Feb, 2011 [facility] [place] [facility] [address] [id number] [place] [address] 2546 27 Feb, 2011 [facility] [place] [facility] [address] [id number] [place] [address] 2546 26 Feb, 2011 [facility] [place] [facility] [address] [id number] [place] [address]- 8865 24 Feb, 2011 [facility] [place] [facility] [address] [id number] [place] [address]- 9939 19 Feb, 2011 [facility] [place] [facility] [address] [id number] [place] [address]- [address] 18 Feb, 2012 [facility] [address] [id number] [place] [address] 18 Feb, 2012 [facility] [place] [facility] [address] [id number] [place] [address] 18 Feb, 2012 [facility] [address] [id number] [place] [address] 30 Jan, 2012 [facility] [place] [facility] [address] [id number] [place] [address]46 Jan, [facility] [place] [facility] [address] [id number] [place] [address] Jan, [facility] [place] [facility] [address] [id number] [place] [address] Jan, [facility] [place] [facility] [address] [id number] [place] [address] Dec, [facility] [place] [facility] [address] [id number] [place] [address] Dec, [facility] [place] [facility] [address] [id number] [place] [address] 7427 Dec, [facility] [place] [facility] [address] [id number] [place] [address] Dec, [facility] [place] [facility] [address] [id number] [place] [address] 49[address] Dec, [facility] [place] [facility] [address] [id number] [place] [address] Dec, [facility] [place] [facility] [address] [id number] [place] [address] Dec, [facility] [place] [facility] [address] [id number] [place] [address] Dec, [facility] [place] [facility] [address] [id number] [place] [address] 9[address] Dec, [facility] [place] [facility] [address] [id number] [place] [address] 67[address] Dec, [facility] [place] [facility] [address] [id number] [place] [address] 44[address] Dec, [facility] [place] [facility] [address] [id number] [place] [address] 8159 Dec, [facility] [place] [facility] [address] [id number] [place] [address] Dec, [facility] [place] [facility] [address] [id number] [place] [address]14 Dec, [facility] [place] [facility] [address] [id number] [place] [address]168 Nov, [facility] [place] [facility] [address] [id number] [place] [address] 8590 Nov, [facility] [place] [facility] [address] [id number] [place] [address] 9[address] Nov, [facility] [place] [facility] [address] [id number] [place] [address] 07 Nov, 2011 [facility] [address] [id number] [place] [address]370 Nov, [facility] [place] [facility] [address] [id number] [place] [address] 1379 Nov, [facility] [place] [facility] [address] [id number] [place] [address] 4085 October, [facility] [place] [facility] [address] [id number] [place] [address] 9826 October, [facility] [place] [facility] [address] [id number] [place] [address] 0721 October, [facility] [place] [facility] [address] [id number] [place] [address] 5765 October, [facility] [address] [id number] [place] [address] 7567 Sep, [facility] [place] [facility] [address] [id number] [place] [address] 1996 17 Sep, 2011 [facility] [place] [facility] [address] [id number] [place] [address] 0871 Sep, [facility] [place] [facility] [address] [id number] [place] [address]- [address] Sep, [facility] [place] [facility] [address] [id number] [place] [address] Sep, [facility] [place] [facility] [address] [id number] [place] [address] 7314 Aug, [facility] [place] [facility] [address] [id number] [place] [address] 18[address] Aug, [facility] [place] [facility] [address] [id number] [place] [address] Aug, [facility] [place] [facility] [address] [id number] [place] [address] 2926 Aug, [facility] [place] [facility] [address] [id number] [place] [address] 2712 13 Aug, 2011 [facility] [address] [id number] [place] [address] Aug, [facility] [address] [id number] [place] [address] Aug, [facility] [address] [id number] [place] [address]366 16 Jul, 2011 [facility] [address] [id number] [place] [address] 7[address] Jul, [facility] [address] [id number] [place] [address] 8282 15 Jul, 2011 [facility] [address] [facility] [id number] [place] [address] Jul, [facility] [address] [facility] [id number] [place] [address] Jun, [address] [id number] Jun, [facility] [address] [facility] [id number] [place] [address] 3912 Jun, [facility] [address] [facility] [id number] [place] [address] Jun, [facility] [address] [id number] [place] [address] 9639 Jun, [facility] [address] [facility] [id number] [place] [address] Jun, [facility] [address] [facility] [id number] [place] [address]- 6501 Jun, [facility] [address] [facility] [id number] [place] [address] 3996 Jun, [facility] [address] [id number] [place] [address] 4749 May, [facility] [place] [facility] [address] [id number] [place] [address] 2779 29 May, 2011 [facility] [place] [facility] [address] [id number] [place] [address]- 3883 May, [facility] [place] [facility] [address] [id number] [place] [address]- 8377 May, [facility] [place] [facility] [address] [id number] [place] [address]- 8694 May, [facility] [place] [facility] [address] [id number] [place] [address] 4919 May, [facility] [place] [facility] [address] [id number] [place] [address]- 2433 May, [facility] [place] [facility] [address] [id number] [place] [address]- 6192 Apr, [facility] [place] [facility] [address] [id number] [place] [address]- 4934 Apr, [facility] [place] [facility] [address] [id number] [place] [address]- 4899 Apr, [facility] [place] [facility] [address] [id number] [place] [address]- 6892 Mar, [facility] [place] [facility] [address] [id number] [place] [address]- 6854 20 Mar, 2011 [facility] [place] [facility] [address] [id number] [place] [address]- 8146 14 Mar, 2011 [facility] [place] [facility] [address] [id number] [place] [address]- 7684 11 Mar, 2011 [facility] [place] [facility] [address] [id number] [place] [address]- 6734 10 Mar, 2011 [facility] [place] [facility] [address] [id number] [place] [address]- 4567 10 Mar, 2011 [facility] [place] [facility] [address] [id number] [place] [address]- 2502 10 Mar, 2011 [facility] [address] [id number] [place] [address]- 3231 11 Jan, 2011 [facility] [place] [facility] [address] [id number] [place] [address] 2546 27 May, 2010 [facility] [place] [facility] [address] [id number] [place] [address]- 0036 21 May, 2010 [facility] [place] [facility] [address] [id number] [place] [address] 2546 13 May, 2010 [facility] [place] [facility] [address] [id number] [place] [address]- 3961 13 May, 2010 [facility] [place] [facility] [address] [id number] [place] [address]- 7062 10 May, 2010 [facility] [address] [id number] [place] [address]- 0557 06 May, 2010 [facility] [place] [facility] [address] [id number] [place] [address]- 6418 29 Apr, 2010 [facility] [place] [facility] [address] [id number] [place] [address]- 2676 26 Apr, 2010 [facility] [place] [facility] [address] [id number] [place] [address]- 3497 19 Apr, 2010 [facility] [place] [facility] [address] [id number] [place] [address] 2544 18 Apr, 2010 [facility] [place] [facility] [address] [id number] [place] [address]- 2547 15 Apr, 2010 [facility] [place] [facility] [address] [id number] [place] [address] 2548 12 Apr, 2010 [facility] [place] [facility] [address] [id number] [place] [address]- 2541 12 Apr, 2010 [facility] [place] [facility] [address] [id number] [place] [address]- 2542 05 Apr, 2010 [facility] [place] [facility] [id number] [place] [address]- [address]370 Apr, [facility] [place] [id number] [address]805 Apr, [facility] [place] [id number] [address]- 0425 Mar, [facility] [place] [id number] [address]- 2437 Mar, [facility] [place] [id number] [place] [address]- 8543 Mar, [facility] [place] [id number] [place] [address]- 67[address] Mar, [facility] [place] [id number] [place] [address]- 2081 Mar, [facility] [place] [id number] [place] [address]- 5546 Dec, [facility] [place] [address] [place] [address]- 8687 Nov, IMMUNIZATIONS No Known Immunizations SOCIAL HISTORY Never Assessed REASON FOR VISIT f/u PLAN OF CARE Activity Details Follow Up 4 Months Reason: VITAL SIGNS Height 62 in 2017-09-05 Weight 112.0 lbs 2017-09-05 Heart Rate 48 bpm 2017-09-05 Respiratory Rate 20 2017-09-05 BMI 20.48 kg/m2 2017-09-05 Blood pressure systolic 148 mmHg 2017-09-05 Blood pressure diastolic 58 mmHg 2017-09-05 MEDICATIONS Medication Instructions Dosage Frequency Start Date End Date Duration Status Metoprolol Tartrate 25 MG TAKE 1 TABLET BY MOUTH TWICE DAILY 30 Active Lipitor 40 MG Orally Once a day 1 tablet 24h Active Tussin Cough DM 100-10 MG/5ML Orally every 6 hrs as needed for cough 10 ml as needed Active Fioricet 50-300-40 MG Orally every 6 hrs 1 capsule as needed 6h Active Nitroglycerin 0.2 MG/HR APPLY ONE PATCH TRANSDERMALLY DAILY AND REMOVE AT BEDTIME 30 Active Citalopram Hydrobromide 20 MG Orally Once a day 1 tablet 24h 030 days Active Saline Mist [place] 0.65 % Nasally 1 spray in both nostrils every 4 hours 1 [place] Active Bisacodyl 10 MG Rectal Once a day 1 suppository as needed 24h Active Lamotrigine 100 MG TAKE 1 TABLET BY MOUTH TWICE DAILY 30 Active Fexofenadine HCl 180 MG Orally Once a day 1 tablet 24h Active Clorazepate Dipotassium 3.75 MG Orally Twice a day 1` tablets 12h 28 Active Citalopram Hydrobromide 10 MG Orally Once a day 1 tablet 24h 30 days Active Topiramate 100 MG TAKE 1 TABLET BY MOUTH TWICE DAILY 30 Active Fentanyl 75 MCG/HR Transdermal every 72 hours 1 patch to skin Aug, 30 days Active Clobetasol Propionate 0.05 % Externally Twice a day 1 application to affected area 12h Jul, 30 days Active Vitamin B-12 1000 MCG/ML Injection every 14 days 1 ml Active Coumadin 1 MG Orally Once a day 1.5mg every other day and 2, 1mg tabs on opposite days 24h Active Restasis 0.05 % 1 DROP EACH EYE TWICE DAILY 30 Active Hydrocortisone 2.5 % Externally every 24 hours as needed for dry skin 1 application to affected area Active Nitro-Dur 0.2 MG/HR Transdermal Once a day 1 patch to skin remove after 12 hours 24h Active Melatonin 5 MG Orally at bedtime 1 tablet 30 days Active MiraLax Active Vitamin D (Ergocalciferol) 26674 UNIT Orally 2 times a day every 7 days 1 capsule Active Gabapentin 400 MG TAKE 1 CAPSULE BY MOUTH AT BEDTIME 30 Active Topamax 100 MG Orally Twice a day 1 tablet 12h Active Sodium Bicarbonate 650 MG Orally Once a day 1 tablet 24h Active Refresh Liquigel 1 % Ophthalmic 4 times a day 1 drop into affected eye as needed 6h Active Folic Acid 1 MG TAKE 1 TABLET BY MOUTH EVERY DAY 30 Active Zofran ODT 4 MG Orally every 8 hrs 1 tablet on the tongue and allow to dissolve 8h Active Ibuprofen 200 mg Orally every 8 hours as needed for headache 2 tablets Active Flonase Allergy Relief Active Phenytoin 50 MG TAKE 1 TABLET BY MOUTH EVERY DAY 30 Active Omeprazole Magnesium 20.6 (20 Base) MG Orally Once a day 1 capsule 24h Active Nissa 180mg 1 tablet Active Phenytoin 100 MG/4ML Orally at bedtime 150mg Active Phenytoin Sodium Extended 100 MG TAKE 1 CAPSULE BY MOUTH AT BEDTIME 30 Active Fluticasone Propionate 50 MCG/ACT INSTILL 1 SPRAY IN EACH NOSTRIL TWICE DAILY 30 Active Cyanocobalamin 1000 MCG/ML INJECT 1 ML INTRAMUSCULARLY EVERY 14 DAYS 28 Active RESULTS No Results PROCEDURES No [...] and skin graft, cholecysectomy Hospitalization History [facility] 12/2016 Hospitalization History [facility] 08/2017
--- OUTSIDE RECORDS SUMMARY | 2018-02-04 13:17 | XMS REPORT ---
Author Author NAHOMY BETH Organization [facility] Address [address] [place] [address] Care Team Providers Care Application Chemist Name Role Phone NAHOMY BETH Unavailable PROBLEMS Type Condition ICD9-CM Code USL08-JX Code Onset Dates Condition Status SNOMED Code Problem History of colon polyps Z86.010 Active 206276561 Problem Factitious disorder imposed on self, recurrent episode F68.10 Active 37275773 Problem Anemia, unspecified type D64.9 Active 523295321 Problem Allergic state, subsequent encounter T78.40XD Active 286057099 Problem Unspecified psychosis not due to a substance or known physiological condition F29 Active 75593389 Problem Age-related osteoporosis without current pathological fracture M81.0 Active 39443723 Problem Personality disorder F60.9 Active 51105247 Problem Iron deficiency anemia, unspecified iron deficiency anemia type D50.9 Active 34875047 Problem Anxiety F41.9 Active 45680242 Problem History of CVA with residual deficit I69.30 Active 293804173 Problem Insomnia, unspecified type G47.00 Active 533436150 Problem Perennial allergic rhinitis, unspecified allergic rhinitis trigger J30.89 Active 092035843 Problem Seizure disorder G40.909 Active 881472165 Problem Chronic kidney disease, unspecified stage N18.9 Active 252638800 Problem Back pain M54.9 Active 911042063 Problem Gastroesophageal reflux disease without esophagitis K21.9 Active 614402766 ALLERGIES Substance Reaction Event Type Date Status Vibramycin Unknown Drug Allergy Aug, Active Tegretol Unknown Drug Allergy Aug, Active SulfADIAZINE Unknown Drug Allergy Aug, Active Penicillin V Potassium Unknown Drug Allergy Aug, Active Darvocet A500 Unknown Drug Allergy Aug, Active Codeine Phosphate Unknown Drug Allergy Aug, Active Aspirin Unknown Drug Allergy Aug, Active ENCOUNTERS Encounter Location Date Diagnosis [facility] [address] [address] Jan, [facility] [address] [address] Dec, [facility] [address] [address] Dec, [facility] [address], [place] [address] Dec, [facility] [address], [place] [address] Nov, Unspecified psychosis not due to a substance or known physiological condition F29 ; Personality disorder F60.9 and Factitious disorder imposed on self, recurrent episode F68.10 [facility] [address], [place] [address] 139[address] Nov, Back pain M54.9 [facility] [address], [place] [address] Nov, Unspecified psychosis not due to a substance or known physiological condition F29 ; Personality disorder F60.9 and Factitious disorder imposed on self, recurrent episode F68.10 [facility] [address], [place] [address] October, [facility] [address], [place] [address] October, [facility] [address], [place] [address] October, Unspecified psychosis not due to a substance or known physiological condition F29 ; Personality disorder F60.9 and Factitious disorder imposed on self, recurrent episode F68.10 [facility] [address], [place] [address] 28[address] October, Back pain M54.9 [facility] [id number], [place] [address] 4[address] October, Seizure disorder G40.909 ; Back pain M54.9 and Allergic state, subsequent encounter T78.40XD [place] [address] [address] October, [place] [address] [place] [id number]- 4466 Sep, Back pain M54.9 [place] [address] [address]- 9528 Sep, Unspecified psychosis not due to a substance or known physiological condition F29 ; Personality disorder F60.9 and Factitious disorder imposed on self, recurrent episode F68.10 [place] [address] [address]- 6778 Sep, [place] [address] [address]- 2321 Sep, [place] [address] [address]- 8768 Sep, [place] [address] [address]- [address] Sep, [place] [address] [address]- 9949 Aug, [facility] [address] [id number] [place] [address]- 2055 Aug, Back pain M54.9 [place] [address] [address]- 2049 Aug, Factitious disorder imposed on self, recurrent episode F68.10 ; Personality disorder F60.9 ; Insomnia, unspecified type G47.00 and Anxiety F41.9 [place] [address] [address]- [address] 08 Aug, 2017 Back pain M54.9 ; Iron deficiency anemia, unspecified iron deficiency anemia type D50.9 ; Chronic kidney disease, unspecified stage N18.9 and Breast cancer screening Z12.31 [place] [address] [id number] [id number] Jul, Back pain M54.9 [facility] [id number] [id number] Jul, [facility] [id number][place] [address] Jul, [facility] [id number][place] [address] Jun, Back pain M54.9 [facility] [address] [id number][place] [id number] Jun, [facility] [id number][place] [address] Jun, Back pain M54.9 [facility] [id number], [place] [address] 46[address] Jun, Back pain M54.9 ; Seizure disorder G40.909 and Age-related osteoporosis without current pathological fracture M81.0 [facility] [id number], [place] [address] May, [facility] [address] [address] May, Back pain M54.9 [facility] [id number] [address] [address] Apr, Back pain M54.9 ; Encounter for immunization Z23 ; Gastroesophageal reflux disease without esophagitis K21.9 ; Age-related osteoporosis without current pathological fracture M81.0 and Chronic pruritus L29.9 [facility] [address] [id number], [place] [address] 16 Apr, 2017 History of CVA with residual deficit I69.30 [facility] [address], [place] [address]- 7[address] Apr, Factitious disorder imposed on self, recurrent episode F68.10 and Personality disorder F60.9 [facility] [id number], [place] [address] Apr, Back pain M54.9 [facility] [address] [place] [address] 87496- 9354 Mar, Factitious disorder imposed on self, recurrent episode F68.10 [place] [address], [place] [address]- 56[address] Mar, [facility] [id number] [place] [address] [id number] Mar, [place] [address] [place] [id number] [place] [address] [id number] Mar, Back pain M54.9 [place] [address] [id number] [place] [address] 70164- 5389 Mar, Back pain M54.9 ; Seizure disorder G40.909 and Age-related osteoporosis without current pathological fracture M81.0 [place] [address] [place] [address]6726- 8578 Feb, History of CVA with residual deficit I69.30 [place] [address] [id number] [place] [address] 70595- 4893 Feb, Factitious disorder imposed on self, recurrent episode F68.10 and Personality disorder F60.9 [place] [address] [place] [address] 70208- 2338 15 Feb, 2017 Back pain M54.9 [place] [address], [place] [address]- 2091 Feb, [place] [address] [place] [address] 62921- 4799 Jan, [facility] [address] [place] [address] Jan, Age- related osteoporosis without current pathological fracture M81.0 and Allergic state, subsequent encounter T78.40XD [place] [address] [id number] [place] [address] 48295- 3743 Jan, Factitious disorder imposed on self, recurrent episode F68.10 and Personality disorder F60.9 [facility] [address], [place] [address]- 0567 Dec, Back pain M54.9 [facility] [id number], [place] [address]- 0034 Dec, Personality disorder F60.9 and Factitious disorder imposed on self, recurrent episode F68.10 [facility] [address] [id number] [address] Dec, Back pain M54.9 [facility] [id number] [place] [address] [id number] Dec, [facility] [id number] [place] [address] [id number] Dec, [facility] [address] [place] [address] 98266- 6508 Dec, [facility] [address] [place] [address] 65369- 2986 Nov, [facility] [address] [place] [address] 62397- 8058 Nov, Back pain M54.9 ; Anemia, unspecified type D64.9 and History of colon polyps Z86.010 [facility] [address], [place] [address]- 4107 Nov, Back pain M54.9 [facility] [id number], [place] [address] October, Back pain M54.9 [facility] [address] [place] [address] October, Back pain M54.9 and Gastroesophageal reflux disease without esophagitis K21.9 [facility] [id number], [place] [address] Sep, [facility] [address] [id number], [place] [address]- 6[address] Sep, [facility] [address], [place] [address]- 1840 Sep, [facility] [address] [place] [address] 37253- 4229 Sep, [facility] [address] [place] [address] 24313- 7496 Sep, [facility] [id number] [place] [address] 99689- 2193 Sep, Seizure disorder G40.909 [facility] [id number] [place] [address] 96529- 8056 Sep, Back pain M54.9 [facility] [address] [place] [address] 69707- 2313 Sep, [facility] [id number] [place] [address] 24773- 0530 Aug, Back pain M54.9 [facility] [address] [place] [address] 51758- 1972 Aug, Seizure disorder G40.909 [facility] [id number] [place] [address] [id number] Aug, [facility] [id number] [place] [address] [id number] 16 Aug, 2016 Back pain M54.9 [facility] [id number] [place] [address] [id number] 14 Aug, 2016 Back pain M54.9 [facility] [id number] [place] [address] [id number] Aug, Back pain M54.9 [facility] [address] [place] [address] Jul, Weakness R53.1 [facility] [address] [place] [address] 85409- 6653 Jul, Seizure disorder G40.909 [facility] [address], [place] [address]- 8244 Jul, [facility] [address] [place] [address] 64265- 3656 Jul, Breast cancer screening Z12.39 [facility] [id number] [place] [address] 03568- 4840 Jul, [facility] [id number] [place] [address] 27825- 6088 Jul, [facility] [address] [place] [address] 64755- 1978 Jul, [facility] [address] [place] [address] 37539- 1378 Jul, Seizure disorder G40.909 ; Fatigue, unspecified type R53.83 ; Perennial allergic rhinitis, unspecified allergic rhinitis trigger J30.89 and Chronic kidney disease, unspecified stage N18.9 [facility] [address], [place] [address]- 1773 Jul, [facility] [address] [place] [address] 02062- 7770 Jul, Seizure disorder G40.909 [facility] [address], [place] [address]- 3622 Jun, [facility] [address] [place] [address] 01011- 8619 Jun, [facility] and [address] [id number] Jun, Perennial allergic rhinitis, unspecified allergic rhinitis trigger J30.89 [facility] [id number] [place] [address] [id number] Jun, [facility] [address], [place] [address]- 4787 Jun, Seizure disorder G40.909 [facility] [address] [id number] [address] Jun, [facility] [id number] [place] [address] [id number] May, [facility] [id number] [place] [address] 21901- 6110 May, [facility] [id number] [place] [address] 73394- 4254 May, [facility] [id number] [place] [address] 17745- 2552 May, [facility] [id number] [place] [address] 03126- 5930 May, History of CVA with residual deficit I69.30 [facility] [id number] [place] [address] 80771- 0343 May, [facility] [id number] [place] [address] 84183- 5524 May, [facility] [address] [place] [address] 51500- 4588 May, [facility] [id number] [place] [address] 86181- 2928 May, Seizure disorder G40.909 [facility] [address] [place] [address] 51303- 3224 May, [facility] [address] [place] [address] May, Back pain M54.9 and Seizure disorder G40.909 [facility] [address] [place] [address] 66589- 2666 Apr, [facility] [id number] [place] [address] 33971- 3817 Apr, Back pain M54.9 [facility] [address] [place] [address] 40044- 1933 Mar, [employer] [facility] [address] [place] [address] Mar, Insomnia, unspecified type G47.00 [facility] [address] [facility] [id number], [place] [address]- 9224 Mar, [facility] [address] [facility] [id number], [place] [address]- 3989 Feb, [facility] [address] [facility] [id number], [place] [address]- 2945 Feb, [facility] [address] [facility] [id number], [place] [address]- 8700 Feb, [facility] [address] [facility] [id number] [place] [address] 89664- 6799 Jan, [facility] [address] [id number] [place] [address] 55108- 7184 Jan, [employer] [facility] [address] [place] [address] Jan, Seizure disorder G40.909 [address] M54.9 [facility] [address], [place] [address]- 9004 Dec, [facility] [address] [facility] [id number], [place] [address]- 6937 Dec, [facility] [address], [place] [address]- 3839 Dec, [facility] [address] [facility] [id number], [place] [address]- 6937 Nov, [facility] [address] [facility] [id number], [place] [address]- 4428 Nov, [facility] [address] [facility] [id number], [place] [address]- 5009 Nov, Back pain M54.9 [facility] [id number], [place] [address]- 1796 October, [facility] [id number] [place] [address] 07532- 5415 October, Back pain M54.9 [facility] [id number] [place] [address] 47611- 0068 October, Seizure disorder G40.[address] [facility] [id number] [place] [address] 68737- 6933 Sep, History of CVA with residual deficit I69.30 [facility] [id number] [place] [address] 90448- 2349 Sep, [facility] [address] [address]698- 3218 Sep, [facility] [id number] [place] [address] 79799- 2600 Sep, Back pain M54.9 [facility] [id number] [place] [address] 69133- 1816 Sep, Seizure disorder G40.909 [facility] [id number] [place] [address] 12765- 6706 Aug, Back pain M54.9 [facility] [id number] [place] [address] 85780- 4534 Aug, Seizure disorder G40.909 [facility] [id number] [place] [address] 04883- 7929 16 Aug, [address] [facility] [id number] [place] [address] 09639- 6595 14 Aug, 2015 Heart failure, unspecified I50.9 [facility] [id number] [place] [address] 94491- 3078 14 Aug, 2015 Medication monitoring encounter Z51.81 [facility] [id number] [place] [address] 50910- 0731 15 Jul, 2015 [facility] [address], [place] [address]- 9086 09 Jul, [address] [facility] [address] [place] [address] 15201- 1680 05 Jul, [address] [facility] [address] [place] [address] 25467- 8680 Jun, [facility] [id number] [place] [address] 93416- 6133 Jun, [facility] [id number] [place] [address] 71262- 9695 Jun, Mental status change R41.82 ; History of CVA with residual deficit I69.30 ; Back pain M54.9 and Seizure disorder G40.909 [facility] [id number] [place] [address] 38262- 8682 Jun, [facility] [address] [place] [address] 36353- 4467 May, [facility] [id number] [place] [address] 32189- 7345 Apr, [facility] [address] [place] [address] 06940- 0991 Apr, Medication monitoring encounter Z51.81 [facility] [id number] [place] [address] 71008- 4285 Mar, Vomiting R11.10 [facility] [address] [place] [address] 10828- 9104 Mar, [facility] [id number] [place] [address] 83162- 6884 18 Feb, 2015 [facility] [address] [place] [address] 51643- 7684 10 Feb, 2015 UTI (urinary tract infection) 599.0 [facility] [address] [id number] [place] [address]- 9676 Jan, [facility] [place] [facility] [address] [id number] [place] [address]- 9466 Jan, [facility] [place] [facility] [address] [id number] [place] [address]- 2546 Jan, [facility] [place] [facility] [address] [id number] [place] [address]- 9273 Dec, [facility] [place] [facility] [address] [id number] [place] [address]- 2546 Dec, [facility] [place] [facility] [address] [id number] [place] [address]- 9526 Dec, [facility] [place] [facility] [address] [id number] [place] [address]- 2546 Dec, [facility] [place] [facility] [address] [facility] [id number] [place] [address]- 7572 Nov, UNKNOWN Nov, [facility] [place] [facility] [address] [id number] [place] [address]- 0686 October, [facility] [place] [facility] [address] [id number] [place] [address]- 7219 Sep, [facility] [place] [facility] [address] [facility] [id number] [place] [address]- 2676 Sep, [facility] [place] [facility] [address] [id number] [place] [address]- 2546 Aug, [facility] [place] [facility] [address] [id number] [place] [address]- 2546 Aug, [facility] [place] [facility] [address] [id number] [place] [address]- 3236 Jul, [facility] [place] [facility] [address] [id number] [place] [address]- 2546 Jul, [facility] [place] [facility] [address] [id number] [place] [address]- 9292 Jul, [facility] [place] [facility] [address] [id number] [place] [address]- 1355 Jul, [facility] [place] [facility] [address] [id number] [place] [address]- 3080 Jul, [facility] [place] [facility] [address] [id number] [place] [address]- 5883 Jun, [facility] [place] [facility] [address] [id number] [place] [address]- 4345 Jun, [facility] [place] [facility] [address] [id number] [place] [address]- 3176 Jun, [facility] [place] [facility] [address] [id number] [place] [address]- 7079 Jun, [facility] [place] [facility] [address] [id number] [place] [address]- 0886 Jun, [facility] [place] [facility] [address] [id number] [place] [address] Jun, [facility] [place] [facility] [address] [id number] [place] [address] Jun, [facility] [place] [facility] [address] [id number] [place] [address] Jun, [facility] [place] [facility] [address] [id number], [place] [address] Jun, [facility] [place] [facility] [address] [id number], [place] [address] Jun, [facility] [place] [facility] [address] [id number] [place] [address] Jun, [facility] [place] [facility] [address] [id number] [place] [address] Jun, [facility] [place] [facility] [address] [id number] [place] [address] Jun, [facility] [place] [facility] [address] [id number] [place] [address] Jun, [facility] [address] [id number] [place] [address] Jun, [facility] [address] [id number] [place] [address] Jun, [facility] [address] [id number] [place] [address] Jun, [facility] [address] [id number] [place] [address] Jun, [facility] [address] [id number] [place] [address] May, [facility] [address] [id number] [place] [address] May, [facility] [address] [id number] [place] [address] May, [facility] [address] [id number] [place] [address] May, [facility] [address] [id number] [place] [address] May, [facility] [address] [id number] [place] [address] 16 May, 2014 [facility] [address] [id number] [place] [address] May, [facility] [address] [id number] [place] [address] May, [facility] [address] [id number] [place] [address] May, [facility] [address] [place] [id number] May, [facility] [address] [id number] [place] [address] May, [facility] [place] [facility] [address] [id number] [place] [address] May, [facility] [place] [facility] [address] [id number] [place] [address] May, [facility] [place] [facility] [address] [id number] [place] [address] Apr, [facility] [place] [facility] [address] [id number] [place] [address] Apr, [facility] [place] [facility] [address] [id number] [place] [address] Apr, [facility] [place] [facility] [address] [id number] [place] [address] Apr, [facility] [facility] [address] [id number] [place] [address] Apr, [facility] [place] [facility] [address] [id number] [place] [address] 1779 Apr, [facility] [place] [facility] [address] [id number] [place] [address] 2[address] Mar, [facility] [place] [facility] [address] [id number] [place] [address] 0998 Mar, [facility] [place] [facility] [address] [id number] [place] [address] 9036 Mar, [facility] [place] [facility] [address] [id number] [place] [address] 6011 Mar, [facility] [place] [facility] [address] [id number] [place] [address] 0798 Mar, [facility] [place] [facility] [address] [id number] [place] [address] 0623 Mar, [facility] [place] [facility] [address] [id number] [place] [address] 0127 Feb, [facility] [place] [facility] [address] [id number] [place] [address]26 24 Feb, 2014 [facility] [place] [facility] [address] [id number] [place] [address] 1147 Feb, [facility] [place] [facility] [address] [id number] [place] [address]- 7051 Feb, [facility] [place] [facility] [address] [id number] [place] [address]- 9002 Feb, [facility] [place] [facility] [address] [id number] [place] [address]- 5608 Feb, [facility] [place] [facility] [address] [id number] [place] [address]- 5491 Feb, [facility] [place] [facility] [address] [id number] [place] [address]- 6152 Feb, [facility] [place] [facility] [address] [id number] [place] [address]- 5934 Feb, [facility] [place] [facility] [address] [id number] [place] [address]- 75[address] Feb, [facility] [address] [place] [id number] Feb, [facility] [place] [facility] [address] [id number], [place] [address] Feb, [facility] [place] [facility] [address] [id number], [place] [address]- 22[address] Jan, [facility] [place] [facility] [address] [id number], [place] [address] 1320 Jan, [facility] [place] [facility] [address] [id number] [place] [address]- 3717 Dec, [facility] [place] [facility] [address] [id number] [place] [address]- 0357 Dec, [facility] [place] [facility] [address] [id number], [place] [address]- 4660 Dec, [facility] [place] [facility] [address] [id number], [place] [address]- 2026 Dec, 2013 [facility] [place] [facility] [address] [id number] [place] [address]- 4389 Dec, 2013 [facility] [place] [facility] [address] [id number] [place] [address]- 4918 Dec, 2013 [facility] [place] [facility] [address] [id number] [place] [address]- 2544 Dec, 2013 [facility] [place] [facility] [address] [id number] [place] [address] Dec, 2013 [facility] [place] [facility] [address] [id number] [place] [address]- 5839 Dec, [facility] [place] [facility] [address] [id number] [place] [address]- 6181 Dec, [facility] [place] [facility] [address] [id number] [place] [address]- 0753 Nov, [facility] [place] [facility] [address] [id number] [place] [address]- 9930 Nov, [facility] [place] [facility] [address] [id number] [place] [address]- 3616 Nov, [facility] [place] [facility] [address] [id number] [place] [address]- 4377 Nov, [facility] [place] [facility] [address] [id number] [place] [address]- 2026 Nov, [facility] [place] [facility] [address] [id number] [place] [address]- 1562 Nov, [facility] [place] [facility] [address] [id number] [place] [address]- 8807 Nov, [facility] [place] [facility] [address] [id number] [place] [address]- 5433 Nov, [facility] [place] [facility] [address] [id number] [place] [address]- 7596 Nov, [facility] [place] [facility] [address] [id number] [place] [address]- 2529 Nov, [facility] [place] [facility] [address] [id number] [place] [address] Nov, [facility] [address] [id number] [place] [address]- 6145 Nov, [facility] [place] [address] [id number] [place] [address]- 2590 Nov, [facility] [place] [facility] [address] [id number] [place] [address]- 4708 Nov, [facility] [place] [facility] [address] [id number] [place] [address]- 4726 October, [facility] [address] [id number] [place] [address]- 4075 October, [facility] [place] [address] [id number] [place] [address]- 8083 October, [facility] [place] [facility] [address] [id number] [place] [address]- 6888 October, [facility] [address] [id number] [place] [address]- 5167 October[facility] [address] [id number] [place] [address]- 3026 October, [facility] [place] [address] [id number] [place] [address]- 3115 October, [facility] [address] [id number] [place] [address]- 4201 October, [facility] [address] [id number] [place] [address]- 7683 October, [facility] [address] [id number] [place] [address]- 4609 October, [facility] [address] [id number] [place] [address]- 4871 Sep, [facility] [place] [facility] [address] [id number] [place] [address]- 3190 Sep, [facility] [address] [id number] [place] [address]- 1235 Sep, [facility] [address] [id number] [place] [address]- 4951 Sep, [facility] [address] [id number] [place] [address]- 2365 Sep, [facility] [address] [id number] [place] [address]- 6183 Sep, [facility] [address] [id number] [place] [address]- 9609 Sep, [facility] [address] [id number] [place] [address]- 9952 Sep, [facility] [address] [id number] [place] [address]- 8843 Sep, [facility] [address] [id number] [place] [address]- 3283 Sep, [facility] [address] [id number] [place] [address]- 7262 Aug, [facility] [address] [id number] [place] [address]- 7363 Aug, [facility] [address] [id number] [place] [address]- 1879 Aug, [facility] [address] [id number] [place] [address]- 9335 Aug, [facility] [address] [id number] [place] [address]- 2026 Aug, [facility] [address] [id number] [place] [address]- 0020 Aug, [facility] [address] [id number] [place] [address]- 9774 Aug, [facility] [address] [id number] [place] [address]- 9620 Aug, [facility] [address] [id number] [place] [address]- 1753 Aug, [facility] [address] [facility] [id number] [place] [address]- 3881 Jul, [facility] [address] [id number] [place] [address]- 1832 Jul, [facility] [address] [id number] [place] [address]- 6116 Jul, [facility] [address] [facility] [id number] [place] [address]- 2026 Jul, [facility] [address] [facility] [id number] [place] [address]- 0749 Jul, [facility] [address] [id number] [place] [address]- 0550 Jul, [facility] [address] [facility] [id number] [place] [address]- 9445 Jul, [facility] [address] [facility] [id number] [place] [address]- 6576 Jul, [facility] [address] [facility] [id number] [place] [address]- 5615 Jul, [facility] [address] [facility] [id number] [place] [address]- 4284 Jul, [facility] [address] [facility] [id number] [place] [address]- 9915 Jul, [facility] [address] [facility] [id number] [place] [address]- 7419 Jul, [facility] [address] [facility] [id number] [place] [address]- 9449 Jul, [facility] [address] [id number] [place] [address]- 2874 Jul, [facility] [address] [id number] [place] [address]- 7135 Jul, [facility] [address] [id number] [place] [address]- 6711 Jul, [facility] [address] [id number] [place] [address]- 1294 Jun, [facility] [address] [id number] [place] [address]- 8857 Jun, [facility] [address] [id number] [place] [address]- 9979 Jun, [facility] [address] [facility] [id number] [place] [address]- 6861 Jun, [facility] [address] [id number] [place] [address]- 3065 Jun, [facility] [address] [facility] [id number] [place] [address]- 4061 Jun, [facility] [address] [facility] [id number] [place] [address]- 1159 May, [facility] [address] [id number] [place] [address]- 3225 May, [facility] [address] [id number], [place] [address]- 4792 May, [facility] [address] [id number] [place] [address]- 3055 May, [facility] [address] [id number] [place] [address]- 3253 Apr, [facility] [address] [facility] [id number] [place] [address]- 8990 Apr, [facility] [address] [id number] [place] [address]- 5578 Apr, [facility] [address] [id number] [place] [address]- 7299 Apr, [facility] [address] [id number] [place] [address]- 9239 Apr, [facility] [address] [id number] [place] [address]- 0688 Apr, [facility] [address] [id number] [place] [address]- 3212 Apr, [facility] [address] [id number] [place] [address]- 6092 Apr, [facility] [address] [id number] [place] [address]- 3572 Apr, [facility] [address] [id number] [place] [address]- 3378 Apr, [facility] [address] [id number] [place] [address]- 6791 Apr, [facility] [address] [id number] [place] [address]- 3545 Apr, [facility] [address] [id number] [place] [address]- 7174 28 Mar, 2013 [facility] [address] [id number] [place] [address]- 4768 28 Mar, 2013 [facility] [address] [id number] [place] [address]- 0221 16 Mar, 2013 [facility] [address] [id number] [place] [address]- 9926 16 Mar, 2013 [facility] [address] [id number] [place] [address]- 4256 15 Mar, 2013 [facility] [address] [id number] [place] [address]- 5628 15 Mar, 2013 [facility] [address] [id number] [place] [address]- 2077 27 Feb, 2012 [facility] [address] [id number] [place] [address]- 6841 25 Feb, 2013 [facility] [address] [id number] [place] [address]- 9058 25 Feb, 2013 [facility] [address] [id number] [place] [address]- 4749 23 Feb, 2012 [facility] [address] [id number] [place] [address]- 6241 17 Feb, 2013 [facility] [address] [id number] [place] [address]- 8957 10 Feb, 2013 [facility] [address] [id number] [place] [address]- 1701 04 Feb, 2013 [facility] [address] [id number] [place] [address]- 9905 30 Jan, 2013 [facility] [address] [id number] [place] [address]- 6293 Jan, [facility] [address] [id number] [place] [address]- 1516 Jan, [facility] [address] [id number], [place] [address]- 4755 Jan, [facility] [address] [id number], [place] [address]- 5325 Jan, [facility] [place] [facility] [address] [id number] [place] [address]- 9667 Jan, [facility] [place] [facility] [address] [id number] [place] [address]- 3109 Jan, [facility] [place] [facility] [address] [id number] [place] [address]- 3961 Dec, [facility] [place] [facility] [address] [id number] [place] [address]- 5032 Dec, [facility] [address] [id number] [place] [address]- 7107 Dec, [facility] [address] [id number] [place] [address]- 6806 Dec, [facility] [address] [id number] [place] [address]- 4730 Dec, [facility] [facility] [address] [id number] [place] [address]- 3027 Dec, [facility] [address] [id number] [place] [address]- 9215 Nov, [facility] [address] [id number] [place] [address]- 2366 Nov, [facility] [address] [id number] [place] [address]- 3357 Nov, [facility] [address] [id number] [place] [address]- 3254 Nov, [facility] [place] [facility] [address] [id number] [place] [address]- 6037 October, [facility] [address] [id number] [place] [address]- 1311 October, [facility] [place] [facility] [address] [id number] [place] [address]- 1182 October, [facility] [place] [facility] [address] [id number] [place] [address]- 2542 October, [facility] [place] [facility] [address] [id number] [place] [address]- 2219 Sep, [facility] [place] [facility] [address] [id number] [place] [address]- 4878 Sep, [facility] [place] [facility] [address] [id number] [place] [address]- 7504 16 Sep, 2012 [facility] [place] [facility] [address] [id number] [place] [address]- 5710 Sep, [facility] [address] [id number] [place] [address]- 0012 Sep, [facility] [address] [id number] [place] [address]- 9306 Sep, [facility] [address] [id number] [place] [address]- 9361 Sep, [facility] [address] [id number] [place] [address]- 2508 Sep, [facility] [address] [id number] [place] [address]- 4634 Aug, [facility] [address] [id number] [place] [address]- 2557 Aug, [facility] [address] [id number] [place] [address]- 0573 Aug, [facility] [address] [id number] [place] [address]- 2026 Jul, [facility] [address] [id number] [place] [address]- 3649 08 Jul, 2012 [facility] [address] [id number] [place] [address]- 2751 Jul, [facility] [address] [id number], [place] [address]- 0817 Jul, [facility] [address] [id number] [place] [address]- 2609 05 Jul, 2012 [facility] [address] [id number] [place] [address]- 6876 Jun, [facility] [facility] [address] [id number] [place] [address]- 1261 Jun, [facility] [address] [id number] [place] [address]- 7836 08 Jun, 2012 [facility] [place] [facility] [address] [id number] [place] [address]- 5997 May, [facility] [place] [facility] [address] [id number] [place] [address]- 0896 May, [facility] [place] [facility] [address] [id number] [place] [address]- 7886 May, [facility] [place] [facility] [address] [id number] [place] [address]- 6277 May, [facility] [place] [facility] [address] [id number] [place] [address]- 0743 May, [facility] [place] [facility] [address] [id number] [place] [address]- 6466 May, [facility] [place] [facility] [address] [id number] [place] [address]- 0868 May, [facility] [place] [facility] [address] [id number] [place] [address]- 8793 Apr, [facility] [place] [facility] [address] [id number] [place] [address]- 9516 Apr, [facility] [place] [facility] [address] [id number] [place] [address]- 9671 Apr, [facility] [place] [facility] [address] [id number] [place] [address]- 5993 Apr, [facility] [place] [facility] [address] [id number], [place] [address]- 7216 Apr, [facility] [place] [facility] [address] [id number] [place] [address]- 4583 Apr, [facility] [place] [facility] [address] [id number] [place] [address]- 6866 13 Apr, 2012 [facility] [place] [facility] [address] [id number], [place] [address]- 6436 13 Apr, 2012 [facility] [place] [facility] [address] [id number] [place] [address]- 5371 Apr, [facility] [place] [facility] [address] [id number] [place] [address]- 6872 Apr, [facility] [place] [facility] [address] [id number] [place] [address]- 9186 Apr, [facility] [place] [facility] [address] [id number] [place] [address]- 3578 Mar, [facility] [place] [facility] [address] [id number] [place] [address]- 3880 Mar, [facility] [place] [facility] [address] [id number] [place] [address]- 8526 Mar, [facility] [place] [facility] [address] [id number] [place] [address]- 1022 Mar, [facility] [place] [facility] [address] [id number] [place] [address]- 2660 Mar, [facility] [place] [facility] [address] [id number] [place] [address]- 6600 Mar, [facility] [place] [facility] [address] [id number] [place] [address]- 4823 Mar, [facility] [place] [facility] [address] [id number] [place] [address] Mar, [facility] [place] [facility] [address] [id number] [place] [address] Mar, [facility] [place] [facility] [address] [id number] [place] [address] Mar, [facility] [place] [facility] [address] [id number] [place] [address] Mar, [facility] [place] [facility] [address] [id number] [place] [address] Feb, [facility] [place] [facility] [address] [id number] [place] [address] 27 Feb, 2011 [facility] [place] [facility] [address] [id number] [place] [address] 27 Feb, 2011 [facility] [place] [facility] [address] [id number] [place] [address] 1006 26 Feb, 2012 [facility] [place] [facility] [address] [id number] [place] [address] 2546 24 Feb, 2011 [facility] [place] [facility] [address] [id number] [place] [address] 2546 19 Feb, 2011 [facility] [place] [facility] [address] [id number] [place] [address] 18 Feb, 2012 [facility] [place] [facility] [address] [id number] [place] [address] 18 Feb, 2012 [facility] [place] [facility] [address] [id number] [place] [address] Feb, [facility] [place] [facility] [address] [id number] [place] [address] Jan, [facility] [place] [facility] [address] [id number] [place] [address] Jan, [facility] [place] [facility] [address] [id number] [place] [address] Jan, [facility] [place] [facility] [address] [id number] [place] [address] 39[address] Jan, [facility] [place] [facility] [address] [id number], [place] [address] Dec, [facility] [place] [facility] [address] [id number] [place] [address] Dec, [facility] [place] [facility] [address] [id number] [place] [address] Dec, [facility] [place] [facility] [address] [id number] [place] [address] Dec, [facility] [place] [facility] [address] [id number] [place] [address] 24 Dec, 2011 [facility] [place] [facility] [address] [id number] [place] [address] Dec, 2011 [facility] [place] [facility] [address] [id number] [place] [address] Dec, 2011 [facility] [place] [facility] [address] [id number] [place] [address] Dec, 2011 [facility] [place] [facility] [address] [id number] [place] [address] Dec, 2011 [facility] [place] [facility] [address] [id number] [place] [address] Dec, [facility] [place] [facility] [address] [id number] [place] [address] Dec, [facility] [place] [facility] [address] [id number] [place] [address] Dec, [facility] [place] [facility] [address] [id number] [place] [address]70 Dec, [facility] [place] [facility] [address] [id number] [place] [address]60 Dec, [facility] [place] [facility] [address] [id number] [place] [address] 74[address] Nov, [facility] [place] [facility] [address] [id number] [place] [address] 14 Nov, 2011 [facility] [place] [facility] [address] [id number] [place] [address] Nov, [facility] [place] [facility] [address] [id number] [place] [address]184 Nov, [facility] [place] [facility] [address] [id number] [place] [address] 6927 Nov, [facility] [place] [facility] [address] [id number] [place] [address] 07 Nov, 2011 [facility] [place] [facility] [address] [id number] [place] [address] October, [facility] [address] [id number] [place] [address]83 October, [facility] [address] [id number] [place] [address] October, [facility] [address] [id number] [place] [address] 46[address] October, [facility] [address] [id number] [place] [address] Sep, [facility] [address] [id number] [place] [address] 17 Sep, 2011 [facility] [address] [id number] [place] [address] 89[address] Sep, [facility] [address] [id number] [place] [address] 480[address] Sep, [facility] [address] [id number] [place] [address] 3566 Sep, [facility] [address] [id number] [place] [address] 16[address] Aug, [facility] [address] [id number] [place] [address] Aug, [facility] [address] [id number] [place] [address] Aug, [facility] [address] [id number] [place] [address] 20 Aug, 2011 [facility] [place] [facility] [address] [id number] [place] [address]- [address]32 13 Aug, 2011 [facility] [address] [id number] [place] [address]- 9790 02 Aug, 2011 [facility] [address] [id number], [place] [address] Aug, [facility] [address] [id number], [place] [address] Jul, [facility] [address] [id number], [place] [address] 16 Jul, 2011 [facility] [address] [facility] [id number], [place] [address] Jul, [facility] [address] [facility] [id number], [place] [address] Jul, [facility] [address] [facility] [id number], [place] [address] Jun, [address] [id number] Jun, [facility] [address] [facility] [id number], [place] [address] Jun, [facility] [address] [facility] [id number], [place] [address] 750[address] Jun, [facility] [address] [id number], [place] [address] Jun, [facility] [address] [facility] [id number], [place] [address] Jun, [facility] [address] [id number], [place] [address] Jun, [facility] [place] [facility] [address] [id number], [place] [address]- [address] Jun, [facility] [place] [facility] [address] [id number], [place] [address] May, [facility] [place] [facility] [address] [facility] [id number], [place] [address] 2068 May, [facility] [place] [facility] [address] [facility] [id number], [place] [address]- 9877 May, [facility] [address] [facility] [id number] [place] [address]- [address]145 May, [facility] [place] [facility] [address] [id number] [place] [address]- 0181 May, [facility] [place] [facility] [address] [id number] [place] [address]- [address]246 May, [facility] [facility] [address] [id number] [place] [address] May, [facility] [place] [facility] [address] [id number] [place] [address] Apr, [facility] [place] [facility] [address] [id number] [place] [address] Apr, [facility] [place] [facility] [address] [id number] [place] [address] Apr, [facility] [place] [facility] [address] [id number] [place] [address] Mar, [facility] [place] [facility] [address] [id number] [place] [address] Mar, [facility] [place] [facility] [address] [id number] [place] [address] 14 Mar, 2011 [facility] [place] [facility] [address] [id number] [place] [address] Mar, [facility] [place] [facility] [address] [id number] [place] [address] Mar, [facility] [place] [facility] [address] [id number] [place] [address] Mar, [facility] [place] [facility] [address] [id number] [place] [address] Mar, [facility] [place] [facility] [address] [id number] [place] [address] Jan, [facility] [place] [facility] [address] [id number] [place] [address] May, [facility] [place] [facility] [address] [id number] [place] [address] 21 May, 2010 [facility] [place] [facility] [address] [id number] [place] [address] 13 May, 2010 [facility] [place] [facility] [address] [id number] [place] [address] 13 May, 2010 [facility] [place] [facility] [address] [id number] [place] [address] 10 May, 2010 [facility] [address] [id number] [place] [address] 06 May, 2010 [facility] [place] [facility] [address] [id number] [place] [address] 29 Apr, 2010 [facility] [address] [id number] [place] [address] 26 Apr, 2010 [facility] [address] [id number] [place] [address] Apr, [facility] [address] [id number] [place] [address] 18 Apr, 2010 [facility] [address] [id number] [place] [address] 15 Apr, 2010 [facility] [address] [id number] [place] [address] Apr, [facility] [place] [facility] [address] [id number], [place] [address] Apr, [facility] [place] [facility] [address] [id number] [place] [address] Apr, [facility] [place] [facility] [address] [id number] [place] [address] Apr, [facility] [address] [id number] [place] [address] Apr, [facility] [address] [id number], [place] [address] Mar, [facility] [address] [facility] [id number] [address] Mar, [facility] [address] [facility] [id number][place] [address] Mar, [facility] [address] [facility] [id number][place] [address] Mar, [facility] [address] [facility] [id number][place] [address] Mar, [facility] [address] [facility] [id number], [place] [address] Dec, [facility] [address] [facility] [id number], [place] [address] Nov, IMMUNIZATIONS No Known Immunizations SOCIAL HISTORY Never Assessed REASON FOR VISIT wanting to discuss lab results - Brandon OTERO , Sahil scheduled for Medicare AWV , PHQ2, AUDIT C PLAN OF CARE Activity Details Follow Up 2 Months Reason: VITAL SIGNS Height 62 in 2017-08-29 Weight 119 lbs 2017-08-29 Temperature 98.3 degrees Fahrenheit 2017-08-29 Heart Rate 80 bpm 2017-08-29 Respiratory Rate 20 2017-08-29 BMI 21.76 kg/m2 2017-08-29 Blood pressure systolic 130 mmHg 2017-08-29 Blood pressure diastolic 70 mmHg 2017-08-29 MEDICATIONS Medication Instructions Dosage Frequency Start Date End Date Duration Status Vitamin B-12 1000 MCG/ML Injection every 14 days 1 ml Active Gabapentin 400 MG TAKE 1 CAPSULE BY MOUTH AT BEDTIME 30 Active Cyanocobalamin 1000 MCG/ML INJECT 1 ML INTRAMUSCULARLY EVERY 14 DAYS 28 Active Citalopram Hydrobromide 20 MG Orally Once a day 1 tablet 24h 030 days Active Nitro-Dur 0.2 MG/HR Transdermal Once a day 1 patch to skin remove after 12 hours 24h Active Sodium Bicarbonate 650 MG Orally Once a day 1 tablet 24h Active Citalopram Hydrobromide 10 MG TAKE 1 TABLET BY MOUTH ONCE DAILY 30 Active Phenytoin 100 MG/4ML Orally at bedtime 150mg Active Flonase Allergy Relief Active Ywqlrivscc-BUIM-Icwrzbbz 50-300-40 MG TAKE 1 CAPSULE BY MOUTH EVERY SIX HOURS NEEDED 15 Not-Taking MiraLax Active Fexofenadine HCl 180 MG Orally Once a day 1 tablet 24h Active Zofran ODT 4 MG Orally every 8 hrs 1 tablet on the tongue and allow to dissolve 8h Active Tussin Cough DM 100-10 MG/5ML Orally every 6 hrs as needed for cough 10 ml as needed Active Lamotrigine 100 mg Orally 2 times a day 1 tablet 12h Active Metoprolol Tartrate 25 MG TAKE 1 TABLET BY MOUTH TWICE DAILY 30 Active Lipitor 40 MG Orally Once a day 1 tablet 24h Active Melatonin 5 MG 1 tablet at bedtime Orally 30 days 30 Active Phenytoin 50 MG TAKE 1 TABLET BY MOUTH EVERY DAY 30 Active Fluticasone Propionate 50 MCG/ACT INSTILL 1 SPRAY IN EACH NOSTRIL TWICE DAILY 30 Active Folic Acid 1 MG TAKE 1 TABLET BY MOUTH EVERY DAY 30 Active Hydrocortisone 2.5 % Externally every 24 hours as needed for dry skin 1 application to affected area Active Clobetasol Propionate 0.05 % Externally Twice a day 1 application to affected area 12h Jul, 30 days Active Omeprazole Magnesium 20.6 (20 Base) MG Orally Once a day 1 capsule 24h Active Coumadin 1 MG Orally Once a day 1.5mg every other day and 2, 1mg tabs on opposite days 24h Active Topamax 100 MG Orally Twice a day 1 tablet 12h Active Phenytoin Sodium Extended 100 MG TAKE 1 CAPSULE BY MOUTH AT BEDTIME 30 Active Fentanyl 75 MCG/HR Transdermal every 72 hours 1 patch to skin Aug, 30 days Active Bisacodyl 10 MG Rectal Once a day 1 suppository as needed 24h Active Topiramate 100 MG TAKE 1 TABLET BY MOUTH TWICE DAILY 30 Active Clorazepate Dipotassium 3.75 MG Orally Twice a day 1` tablets 12h 28 Active Tylenol 325 MG Orally every 6 hrs as needed for headache 2 tablets as needed Not-Taking Fioricet 50-300-40 MG Orally every 6 hrs 1 capsule as needed 6h Active Nitroglycerin 0.2 MG/HR APPLY ONE PATCH TRANSDERMALLY DAILY AND REMOVE AT BEDTIME 30 Active Saline Mist [place] 0.65 % Nasally 1 spray in both nostrils every 4 hours 1 [place] Active Ibuprofen 200 mg Orally every 8 hours as needed for headache 2 tablets Active Vitamin D (Ergocalciferol) 51397 UNIT Orally 2 times a day every 7 days 1 capsule Active Restasis 0.05 % 1 DROP EACH EYE TWICE DAILY 30 Active Refresh Liquigel 1 % Ophthalmic 4 times a day 1 drop into affected eye as needed 6h Active RESULTS No Results PROCEDURES Procedure Date Ordered Result Body Site FOR[facility] VISIT ESTABLISHED PATIENT August 29, 2017 INSTRUCTIONS MEDICATIONS ADMINISTERED No Known Medications [...] surgery and skin graft, cholecysectomy Hospitalization History [facility] 12/2016 Hospitalization History [facility] 08/2017
--- OUTSIDE RECORDS SUMMARY | 2018-02-04 13:18 | XMS REPORT ---
Author Author NAHOMY BETH Organization [facility] Address [facility] [place] [address] Care Team Providers Care Building Associate Name Role Phone NAHOMY BETH Unavailable PROBLEMS Type Condition ICD9-CM Code SDE46-GC Code Onset Dates Condition Status SNOMED Code Problem History of colon polyps Z86.010 Active 094850465 Problem Factitious disorder imposed on self, recurrent episode F68.10 Active 73026513 Problem Anemia, unspecified type D64.9 Active 642814653 Problem Allergic state, subsequent encounter T78.40XD Active 870749819 Problem Unspecified psychosis not due to a substance or known physiological condition F29 Active 18108855 Problem Age-related osteoporosis without current pathological fracture M81.0 Active 03079121 Problem Personality disorder F60.9 Active 75679296 Problem Iron deficiency anemia, unspecified iron deficiency anemia type D50.9 Active 56066252 Problem Anxiety F41.9 Active 68993506 Problem History of CVA with residual deficit I69.30 Active 867292356 Problem Insomnia, unspecified type G47.00 Active 499175849 Problem Perennial allergic rhinitis, unspecified allergic rhinitis trigger J30.89 Active 983171638 Problem Seizure disorder G40.909 Active 093141943 Problem Chronic kidney disease, unspecified stage N18.9 Active 789461960 Problem Back pain M54.9 Active 182282237 Problem Gastroesophageal reflux disease without esophagitis K21.9 Active 665213231 ALLERGIES Substance Reaction Event Type Date Status Vibramycin Unknown Drug Allergy Mar, Active Tegretol Unknown Drug Allergy Mar, Active SulfADIAZINE Unknown Drug Allergy Mar, Active Penicillin V Potassium Unknown Drug Allergy Mar, Active Darvocet A500 Unknown Drug Allergy Mar, Active Codeine Phosphate Unknown Drug Allergy Mar, Active Aspirin Unknown Drug Allergy Mar, Active ENCOUNTERS Encounter Location Date Diagnosis [facility] [address] [facility] [id number] [address] Dec, [facility] [address] [address] Nov, [facility] [address] [place] [address] 59232- 6528 Nov, [facility] [address] [place] [address] 33076- 8820 October, [facility] [id number] [place] [address] 80670- 6536 October, Seizure disorder G40.909 ; Back pain M54.9 and Allergic state, subsequent encounter T78.40XD [facility] [id number] [place] [address] 01353- 2704 October, [facility] [address] [place] [address] 63143- 7063 Sep, Back pain M54.9 [facility] [address] [address] 68[address] Sep, Unspecified psychosis not due to a substance or known physiological condition F29 ; Personality disorder F60.9 and Factitious disorder imposed on self, recurrent episode F68.10 [facility] [address], [place] [address] Sep, [facility] [address], [place] [address] 0758 Sep, [facility] [address], [place] [address] 6399 Sep, [facility] [address], [place] [address] 2312 Sep, [facility] [address], [place] [address]- 5761 Aug, [facility] [address], [place] [address] 2869 Aug, Back pain M54.9 [facility] [id number] [address] [address]16 15 Aug, 2017 Factitious disorder imposed on self, recurrent episode F68.10 ; Personality disorder F60.9 ; Insomnia, unspecified type G47.00 and Anxiety F41.9 [facility] [address] [id number] [address] 08 Aug, 2017 Back pain M54.9 ; Iron deficiency anemia, unspecified iron deficiency anemia type D50.9 ; Chronic kidney disease, unspecified stage N18.9 and Breast cancer screening Z12.31 [facility] [id number] [place] [address] [id number] Jul, Back pain M54.9 [facility] [address] [id number] [address] Jul, [facility] [id number] [place] [address] [id number] Jul, [facility] [id number] [place] [address] [id number] Jun, Back pain M54.9 [facility] [address] [id number] [id number] Jun, [facility] [id number] [id number] Jun, Back pain M54.9 [facility] [address] [id number] [address] 4420 Jun, Back pain M54.9 ; Seizure disorder G40.909 and Age-related osteoporosis without current pathological fracture M81.0 [facility] [id number] [id number] May, [facility] [address] [address] 2892 May, Back pain M54.9 [facility] [address] [id number] [address]- 2955 Apr, Back pain M54.9 ; Encounter for immunization Z23 ; Gastroesophageal reflux disease without esophagitis K21.9 ; Age-related osteoporosis without current pathological fracture M81.0 and Chronic pruritus L29.9 [facility] [address] [place] [address] 84840- 0630 Apr, History of CVA with residual deficit I69.30 [facility] [id number] [place] [address] 24084- 0836 Apr, Factitious disorder imposed on self, recurrent episode F68.10 and Personality disorder F60.9 [facility] [id number] [place] [address] [id number] Apr, Back pain M54.9 [facility] [id number] [place] [address] 84009- 8992 Mar, Factitious disorder imposed on self, recurrent episode F68.10 [facility] [id number] [place] [address] 08622- 1130 Mar, [facility] [id number] [place] [address] [id number] Mar, [facility] [id number] [place] [address] [id number] Mar, Back pain M54.9 [facility] [address] [place] [address] 95127- 2366 Mar, Back pain M54.9 ; Seizure disorder G40.909 and Age-related osteoporosis without current pathological fracture M81.0 [facility] [address] [place] [address] 75538- 0163 Feb, History of CVA with residual deficit I69.30 [facility] [address] [place] [address] 89015- 4930 Feb, Factitious disorder imposed on self, recurrent episode F68.10 and Personality disorder F60.9 [facility] [id number] [place] [address] 64803- 3633 15 Feb, 2017 Back pain M54.9 [facility] [address], [place] [address]- 5920 Feb, [facility] [address]005[address], [place] [address]- 7141 Jan, [facility] [address] [place] [address] [id number] Jan, Age- related osteoporosis without current pathological fracture M81.0 and Allergic state, subsequent encounter T78.40XD [facility] [address] [id number] [address]- 3721 Jan, Factitious disorder imposed on self, recurrent episode F68.10 and Personality disorder F60.9 [facility] [address], [place] [address]- 9489 Dec, Back pain M54.9 [facility] [address], [place] [address]- 4444 Dec, Personality disorder F60.9 and Factitious disorder imposed on self, recurrent episode F68.10 [facility] [id number][place] [id number] Dec, Back pain M54.9 [facility] [id number] [id number] Dec, [facility] [id number][place] [id number] Dec, [facility] [address] [id number], [place] [address]- 2326 Dec, [facility] [address], [place] [address]- 7944 Nov, [facility] [address], [place] [address]- 7486 Nov, Back pain M54.9 ; Anemia, unspecified type D64.9 and History of colon polyps Z86.010 [facility] [address] [id number] [address] 6830 Nov, Back pain M54.9 [facility] [address] [id number] [id number] October, Back pain M54.9 [facility] [address] [place] [id number] October, Back pain M54.9 and Gastroesophageal reflux disease without esophagitis K21.9 [facility] [address] [id number] [id number] Sep, [facility] [address] [facility] [id number], [place] [address]- 1842 Sep, [facility] [address] [id number], [place] [address]- 5152 Sep, [facility] [address]65[address], [place] [address]- 5018 Sep, [facility] [address] [id number], [place] [address]- 4107 Sep, [facility] [id number], [place] [address]- 9920 Sep, Seizure disorder G40.909 [facility] [address] [id number], [place] [address]- 2782 Sep, Back pain M54.9 [facility] [address] [id number], [place] [address]- 0796 Sep, [facility] [address] [facility] [id number], [place] [address]- 9410 Aug, Back pain M54.9 [facility] [address] [facility] [id number] 3341 Aug, Seizure disorder G40.909 [facility] [address] [id number] [id number] Aug, [facility] [address] [id number] [id number] 16 Aug, 2016 Back pain M54.9 [facility] [address] [id number] [id number] 14 Aug, 2016 Back pain M54.9 [facility] [id number] [place] [address] [id number] 06 Aug, 2016 Back pain M54.9 [facility] [address] [place] [id number] Jul, Weakness R53.1 [facility] [id number] [place] [address] 80295- 2826 Jul, Seizure disorder G40.909 [facility] [id number] [place] [address] 07707- 7568 Jul, [place] [id number] [place] [address] 83538- 1104 Jul, Breast cancer screening Z12.39 [facility] [id number] [place] [address] 36601- 1099 Jul, [facility] [address] [place] [address] 85054- 1664 Jul, [facility] [id number] [place] [address] 61444- 2876 Jul, [facility] [address] [place] [address] 22823- 7967 Jul, Seizure disorder G40.909 ; Fatigue, unspecified type R53.83 ; Perennial allergic rhinitis, unspecified allergic rhinitis trigger J30.89 and Chronic kidney disease, unspecified stage N18.9 [facility] [id number] [place] [address] 60508- 4185 Jul, [facility] [id number] [place] [address] 17424- 1987 Jul, Seizure disorder G40.909 [facility] [id number] [place] [address] 65767- 0973 Jun, [facility] [address], [place] [address]- 2323 Jun, [address] [id number] Jun, Perennial allergic rhinitis, unspecified allergic rhinitis trigger J30.89 [facility] [id number] [place] [address] [id number] Jun, [facility] [id number] [place] [address] 37762- 3315 Jun, Seizure disorder G40.909 [facility] [id number] [place] [address] [id number] Jun, [facility] [id number] [place] [address] [id number] May, [facility] [id number] [place] [address] 71350- 0004 May, [facility] [address] [place] [address] 20072- 4681 May, [facility] [address] [place] [address] 85705- 7331 May, [facility] [address] [place] [address] 00036- 9677 May, History of CVA with residual deficit I69.30 [facility] [address], [place] [address]- 8360 May, [facility] [address] [place] [address] 72529- 8495 May, [facility] [id number] [place] [address] 19625- 1748 May, [facility] [id number] [place] [address] 40822- 3856 May, Seizure disorder G40.909 [facility] [address] [place] [address] 79230- 6620 May, [facility] [address] [place] [address] May, Back pain M54.9 and Seizure disorder G40.909 [facility] [address] [id number], [place] [address]- 4948 Apr, [facility] [address] [facility] [id number] [place] [address] 98510- 8746 Apr, Back pain M54.9 [facility] [address] [facility] [id number] [place] [address] 83363- 0936 Mar, [facility] [address] [place] [address] Mar, Insomnia, unspecified type G47.00 [facility] [address] [id number], [place] [address]- 8544 Mar, [facility] [address] [facility] [id number] [place] [address] 58643- 4993 Feb, [facility] [address] [facility] [id number] [place] [address] 10823- 4072 Feb, [facility] [id number] [place] [address] 02912- 3716 Feb, [facility] [address] [facility] [id number], [place] [address]- 2202 Jan, [facility] [address] [facility] [id number] [place] [address] 08957- 7585 Jan, [facility] [address] [place] [address] Jan, Seizure disorder G40.909 and Back pain M54.9 [facility] [address] [facility] [id number], [place] [address]- 9039 Dec, [facility] [address] [facility] [id number], [place] [address]- 6890 Dec, [facility] [id number] [place] [address] 43151- 2475 08 Dec, 2015 [facility] [id number] [place] [address] 49382- 6711 Nov, [facility] [id number] [place] [address] 30735- 2047 Nov, [facility] [id number] [place] [address] 76187- 6347 Nov, Back pain M54.9 [facility] [id number] [place] [address] 66979- 4855 October, [facility] [id number] [place] [address] 51284- 6998 October, Back pain M54.9 [facility] [id number] [place] [address] 77708- 7237 October, Seizure disorder G40.909 and B12 deficiency E53.8 [facility] [id number] [place] [address] 68660- 0867 Sep, History of CVA with residual deficit I69.30 [facility] [id number] [place] [address] 09857- 5770 Sep, [facility] [address] [place] [address] 53127- 2211 Sep, [facility] [id number] [place] [address] 53919- 3723 Sep, Back pain M54.9 [facility] [address] [place] [address] 15054- 0986 Sep, Seizure disorder G40.909 [facility] [id number] [place] [address] 61549- 0296 Aug, Back pain M54.9 [facility] [address] [place] [address] 58430- 8690 Aug, Seizure disorder G40.909 [facility] [address], [place] [address]- 3516 16 Aug, 2015 Back pain M54.9 [facility] [address] [place] [address] 12266 2546 14 Aug, 2015 Heart failure, unspecified I50.9 [facility] [address] [place] [address] 14074 2546 14 Aug, 2015 Medication monitoring encounter Z51.81 [facility] [id number] [place] [address] 90938- 0286 15 Jul, 2015 [facility] [id number] [place] [address] 41093- 4786 09 Jul, 2015 Seizure disorder G40.909 [facility] [address] [place] [address] 60472- 9416 05 Jul, 2015 Back pain M54.9 [facility] [address] [place] [address] 37498- 7366 Jun, [facility] [address] [place] [address] 55550- 8686 Jun, [facility] [id number] [place] [address] 20894- 0197 Jun, Mental status change R41.82 ; History of CVA with residual deficit I69.30 ; Back pain M54.9 and Seizure disorder G40.909 [facility] [address], [place] [address]- 5826 Jun, [facility] [address], [place] [address]- 2546 May, [facility] [address] [place] [address] 30983- 2546 Apr, [facility] [address], [place] [address]- 1226 Apr, Medication monitoring encounter Z51.81 [place] [address] [id number] [place] [address]- 7223 Mar, Vomiting R11.10 [facility] [address] [id number] [place] [address]- 3106 Mar, [facility] [address] [id number] [place] [address]- 7116 Feb, [facility] [address] [id number] [place] [address]- 2964 Feb, UTI (urinary tract infection) 599.0 [facility] [address] [id number] [place] [address]- 8346 Jan, [facility] [address] [id number] [place] [address]- 4546 Jan, [facility] [address] [id number] [place] [address]- 1086 Jan, [facility] [address] [id number] [place] [address]- 0675 Dec, [facility] [address] [id number] [place] [address]- 0544 Dec, [facility] [address] [id number] [place] [address]- 1986 Dec, [facility] [address] [id number] [place] [address]- 3456 Dec, [facility] [address] [id number] [place] [address] 2546 Nov, UNKNOWN Nov, [facility] [address] [id number] [place] [address]- 2546 October, [facility] [address] [id number] [place] [address] 2546 Sep, [facility] [address] [id number] [place] [address]- 6416 Sep, [facility] [place] [facility] [address] [id number] [place] [address]- 1097 Aug, [facility] [place] [facility] [address] [id number] [place] [address]- 0701 Aug, [facility] [place] [facility] [address] [id number] [place] [address]- 0629 Jul, [facility] [place] [facility] [address] [id number] [place] [address]- 7912 Jul, [facility] [place] [facility] [address] [id number] [place] [address]- 1456 Jul, [facility] [place] [facility] [address] [id number] [place] [address]- 1478 Jul, [facility] [place] [facility] [address] [id number] [place] [address]- 5628 Jul, [facility] [place] [facility] [address] [id number] [place] [address]- 2680 Jun, [facility] [place] [facility] [address] [id number] [place] [address]- 1467 Jun, [facility] [place] [facility] [address] [id number] [place] [address]- 8097 Jun, [facility] [place] [facility] [address] [id number] [place] [address]- 2001 Jun, [facility] [place] [facility] [address] [id number], [place] [address]- 4978 Jun, [facility] [place] [facility] [address] [id number] [place] [address]- 4298 Jun, [facility] [place] [facility] [address] [id number] [place] [address]- 7248 Jun, [facility] [place] [facility] [address] [id number], [place] [address]- 3246 Jun, [facility] [place] [facility] [address] [id number] [place] [address]- 1089 Jun, [facility] [place] [facility] [address] [id number] [place] [address] Jun, [facility] [place] [facility] [address] [id number] [place] [address] Jun, [facility] [place] [facility] [address] [id number] [place] [address] Jun, [facility] [place] [facility] [address] [id number] [place] [address] Jun, [facility] [place] [facility] [address] [id number] [place] [address] Jun, [facility] [place] [facility] [address] [id number] [place] [address]- 2019 Jun, [facility] [place] [facility] [address] [id number] [place] [address] Jun, [facility] [place] [facility] [address] [id number] [place] [address] Jun, [facility] [place] [facility] [address] [id number] [place] [address] Jun, [facility] [place] [facility] [address] [id number] [place] [address] May, [facility] [place] [facility] [address] [id number] [place] [address] May, [facility] [place] [facility] [address] [id number] [place] [address] 30 May, 2014 [facility] [place] [facility] [address] [id number] [place] [address] May, [facility] [place] [facility] [address] [id number] [place] [address] 19 May, 2014 [facility] [place] [facility] [address] [id number] [place] [address] 16 May, 2014 [facility] [place] [facility] [address] [id number] [place] [address] 16 May, 2014 [facility] [address] [id number] [place] [address] May, [facility] [place] [facility] [address] [id number] [place] [address] May, [facility] [address] [place] [id number] May, [facility] [place] [facility] [address] [id number] [place] [address] May, [facility] [address] [id number] [place] [address] May, [facility] [place] [facility] [address] [id number] [place] [address] May, [facility] [address] [id number] [place] [address] Apr, [facility] [place] [facility] [address] [id number] [place] [address] Apr, [facility] [place] [facility] [address] [id number] [place] [address] Apr, [facility] [place] [facility] [address] [id number] [place] [address] 0068 Apr, [facility] [place] [facility] [address] [id number] [place] [address]- 9379 Apr, [facility] [place] [facility] [address] [id number] [place] [address] 6836 Apr, [facility] [place] [facility] [address] [id number] [place] [address] 3575 Mar, [facility] [place] [facility] [address] [id number] [place] [address]- 9012 Mar, [facility] [place] [facility] [address] [id number] [place] [address]- 6091 Mar, [facility] [place] [facility] [address] [id number] [place] [address]- 5985 Mar, [facility] [address] [id number] [place] [address]- 0220 Mar, [facility] [place] [facility] [address] [id number] [place] [address]- 4264 Mar, [facility] [place] [facility] [address] [id number] [place] [address]- 9054 Feb, [facility] [address] [id number] [place] [address]- 1754 24 Feb, 2014 [facility] [address] [id number] [place] [address]- 5627 Feb, [facility] [address] [id number] [place] [address]- 6306 Feb, [facility] [address] [id number] [place] [address]- 2058 Feb, [facility] [address] [id number] [place] [address]- 2542 Feb, [facility] [address] [id number] [place] [address]- 9924 Feb, [facility] [address] [id number] [place] [address] 3659 Feb, [facility] [address] [id number] [place] [address]- 2542 Feb, [facility] [address] [id number] [place] [address]- 2548 Feb, [facility] [id number] [id number] Feb, [facility] [place] [facility] [address] [id number] [place] [address]- 2543 Feb, [facility] [address] [id number] [place] [address]- 4459 Jan, [facility] [place] [facility] [address] [id number] [place] [address]- 1105 Jan, [facility] [place] [facility] [address] [id number] [place] [address]- 2870 Dec, [facility] [place] [facility] [address] [id number] [place] [address]- 7357 Dec, [facility] [place] [facility] [address] [id number] [place] [address]- 8713 Dec, [facility] [place] [facility] [address] [id number] [place] [address]- 8357 Dec, [facility] [place] [facility] [address] [id number] [place] [address]- 6365 Dec, [facility] [place] [facility] [address] [id number] [place] [address]- 2338 Dec, [facility] [place] [facility] [address] [id number] [place] [address]- 4548 Dec, [facility] [place] [facility] [address] [id number] [place] [address]- 6126 Dec, [facility] [place] [facility] [address] [id number] [place] [address]- 0947 Dec, [facility] [place] [facility] [address] [id number] [place] [address]- 1213 Dec, [facility] [place] [facility] [address] [id number] [place] [address]- 9451 Nov, [facility] [place] [facility] [address] [id number] [place] [address]- 9143 Nov, [facility] [place] [facility] [address] [id number] [place] [address]- 0177 Nov, [facility] [place] [facility] [address] [id number] [place] [address]- 7893 Nov, [facility] [place] [facility] [address] [id number] [place] [address]- 6396 Nov, [facility] [place] [facility] [address] [id number] [place] [address]- 0920 Nov, [facility] [place] [facility] [address] [id number] [place] [address]- 2003 Nov, [facility] [place] [facility] [address] [id number] [place] [address]- 0837 Nov, [facility] [place] [facility] [address] [id number] [place] [address]- 4769 Nov, [facility] [place] [facility] [address] [id number] [place] [address]- 1222 Nov, [facility] [place] [facility] [address] [id number] [place] [address]- 0780 Nov, [facility] [place] [facility] [address] [id number] [place] [address]- 5113 Nov, [facility] [place] [facility] [address] [id number] [place] [address]- 5522 Nov, [facility] [place] [facility] [address] [id number] [place] [address]- 2333 Nov, [facility] [place] [facility] [address] [id number] [place] [address]- 0770 October, [facility] [place] [facility] [address] [id number] [place] [address]- 7800 October, [facility] [place] [facility] [address] [id number] [place] [address]- 3212 October, [facility] [place] [facility] [address] [id number] [place] [address]- 3376 October, [facility] [place] [facility] [address] [id number] [place] [address]- 9804 October, [facility] [place] [facility] [address] [id number] [place] [address]- 8827 October, [facility] [place] [facility] [address] [id number] [place] [address]- 5460 October, [facility] [place] [facility] [address] [id number] [place] [address]- 2551 October, [facility] [place] [facility] [address] [id number] [place] [address]- 7140 October, [facility] [place] [facility] [address] [id number] [place] [address]- 9057 October, [facility] [place] [facility] [address] [id number] [place] [address]- 1197 Sep, [facility] [place] [facility] [address] [id number] [place] [address]- 4619 Sep, [facility] [place] [facility] [address] [id number] [place] [address]- 1722 Sep, [facility] [place] [facility] [address] [id number] [place] [address]- 4673 Sep, [facility] [place] [facility] [address] [id number] [place] [address]- 3093 Sep, [facility] [place] [facility] [address] [id number] [place] [address]- 8975 Sep, [facility] [place] [facility] [address] [id number] [place] [address]- 8099 Sep, [facility] [place] [facility] [address] [id number] [place] [address]- 3675 Sep, [facility] [place] [facility] [address] [id number] [place] [address]- 2748 Sep, [facility] [place] [facility] [address] [id number] [place] [address]- 1454 Sep, [facility] [place] [facility] [address] [id number] [place] [address]- 5820 Aug, [facility] [place] [facility] [address] [id number] [place] [address]- 0911 Aug, [facility] [place] [facility] [address] [id number] [place] [address]- 5286 Aug, [facility] [place] [facility] [address] [id number] [place] [address]- 7489 Aug, [facility] [place] [facility] [address] [facility] [id number] [place] [address]- 5239 Aug, [facility] [place] [facility] [address] [id number] [place] [address]- 5203 Aug, [facility] [place] [facility] [address] [id number] [place] [address]- 8225 Aug, [facility] [place] [facility] [address] [facility] [id number] [place] [address]- 0122 Aug, [facility] [place] [facility] [address] [facility] [id number] [place] [address]- 4514 Aug, [facility] [place] [facility] [address] [id number] [place] [address]- 7795 Jul, [facility] [place] [facility] [address] [id number] [place] [address]- 0788 Jul, [facility] [place] [facility] [address] [facility] [id number] [place] [address]- 6059 Jul, [facility] [place] [facility] [address] [id number] [place] [address]- 4991 Jul, [facility] [place] [facility] [address] [id number] [place] [address]- 7111 Jul, [facility] [place] [facility] [address] [id number] [place] [address]- 1801 Jul, [facility] [place] [facility] [address] [id number] [place] [address]- 5553 Jul, [facility] [place] [facility] [address] [facility] [id number] [place] [address]- 1644 Jul, [facility] [place] [facility] [address] [id number] [place] [address]- 5910 Jul, [facility] [place] [facility] [address] [id number] [place] [address]- 5016 Jul, [facility] [place] [facility] [address] [id number] [place] [address]- 5276 Jul, [facility] [place] [facility] [address] [id number] [place] [address]- 8846 Jul, [facility] [place] [facility] [address] [id number] [place] [address]- 9138 Jul, [facility] [place] [facility] [address] [id number] [place] [address]- 0396 Jul, [facility] [place] [facility] [address] [id number] [place] [address]- 7409 Jul, [facility] [place] [facility] [address] [id number] [place] [address]- 4619 Jul, [facility] [place] [facility] [address] [id number] [place] [address]- 8682 Jun, [facility] [place] [facility] [address] [id number] [place] [address]- 9146 Jun, [facility] [place] [facility] [address] [id number] [place] [address]- 9333 Jun, [facility] [place] [facility] [address] [id number] [place] [address]- 1537 Jun, [facility] [place] [facility] [address] [id number] [place] [address]- 2223 Jun, [facility] [place] [facility] [address] [id number] [place] [address]- 3691 Jun, [facility] [place] [facility] [address] [id number] [place] [address]- 5115 May, [facility] [place] [facility] [address] [id number] [place] [address]- 1672 May, [facility] [address] [id number] [place] [address]- 7998 May, [facility] [place] [facility] [address] [id number] [place] [address]- 8652 May, [facility] [address] [id number] [place] [address]- 0431 Apr, [facility] [place] [facility] [address] [id number] [place] [address]- 8695 Apr, [facility] [place] [facility] [address] [id number] [place] [address]- 8579 Apr, [facility] [place] [facility] [address] [id number] [place] [address]- 9467 Apr, [facility] [address] [id number] [place] [address]- 9695 Apr, [facility] [place] [facility] [address] [id number] [place] [address]- 7792 Apr, [facility] [place] [facility] [address] [id number] [place] [address]- 8396 Apr, [facility] [place] [facility] [address] [id number] [place] [address]- 3556 Apr, [facility] [place] [facility] [address] [id number] [place] [address]- 2343 Apr, [facility] [place] [facility] [address] [id number] [address]- 2656 Apr, [facility] [place] [facility] [address] [id number] [place] [address]- 1262 Apr, [facility] [place] [facility] [address] [id number] [place] [address]- 7867 Apr, [facility] [place] [facility] [address] [id number], [place] [address]- [address] Mar, [facility] [place] [facility] [address] [id number] [place] [address]- 8952 28 Mar, 2012 [facility] [place] [facility] [address] [id number] [place] [address]- 0269 16 Mar, 2013 [facility] [place] [facility] [address] [id number] [place] [address]- 2929 16 Mar, 2013 [facility] [place] [facility] [address] [id number] [place] [address]- 7508 15 Mar, 2013 [facility] [place] [facility] [address] [id number] [place] [address]- 8177 15 Mar, 2013 [facility] [place] [facility] [address] [id number] [place] [address]- 3203 27 Feb, 2012 [facility] [place] [facility] [address] [id number] [place] [address]- 2124 25 Feb, 2013 [facility] [place] [facility] [address] [id number] [place] [address]- 3096 25 Feb, 2012 [facility] [place] [facility] [address] [id number] [place] [address]- 1566 23 Feb, 2013 [facility] [place] [facility] [address] [id number] [place] [address]- 7022 17 Feb, 2013 [facility] [place] [facility] [address] [id number] [place] [address]- 2549 10 Feb, 2013 [facility] [place] [facility] [address] [id number] [place] [address]- 2541 04 Feb, 2012 [facility] [place] [facility] [address] [id number] [place] [address]- 2542 30 Jan, 2013 [facility] [place] [facility] [address] [id number] [place] [address]- 2544 20 Jan, 2013 [facility] [place] [facility] [address] [id number] [place] [address]- 9658 15 Jan, 2013 [facility] [place] [facility] [address] [id number] [place] [address]- 2646 Jan, [facility] [place] [facility] [address] [id number] [place] [address]- 0360 Jan, [facility] [place] [facility] [address] [id number] [place] [address]- 6420 Jan, [facility] [place] [facility] [address] [id number] [place] [address]- 9009 Jan, [facility] [place] [facility] [address] [id number] [place] [address]- 2386 Dec, [facility] [place] [facility] [address] [id number] [place] [address]- 8872 Dec, [facility] [place] [facility] [address] [id number] [place] [address]- 4941 Dec, [facility] [place] [facility] [address] [id number] [place] [address]- 4684 Dec, [facility] [place] [facility] [address] [id number] [place] [address]- 0579 Dec, [facility] [place] [facility] [address] [id number] [place] [address]- 3364 Dec, [facility] [place] [facility] [address] [id number] [place] [address]- 0060 Nov, [facility] [place] [facility] [address] [id number] [place] [address]- 5801 Nov, [facility] [place] [facility] [address] [id number] [place] [address]- 3333 Nov, [facility] [place] [facility] [address] [id number] [place] [address]- 1918 Nov, [facility] [place] [facility] [address] [id number] [place] [address]- 7154 October, [facility] [place] [facility] [address] [id number] [place] [address]- 3520 October, [facility] [place] [facility] [address] [id number] [place] [address]- 3743 October, [facility] [address] [id number] [place] [address]- 0615 October, [facility] [address] [id number] [place] [address]- 0120 30 Sep, 2012 [facility] [address] [id number] [place] [address]- 6913 Sep, [facility] [address] [id number] [place] [address]- 2441 16 Sep, 2012 [facility] [address] [id number] [place] [address]- 5732 Sep, [facility] [address] [id number] [place] [address]- 0752 Sep, [facility] [address] [id number] [place] [address]- 4505 Sep, [facility] [address] [id number] [place] [address]- 4113 Sep, [facility] [address] [id number] [place] [address]- 2347 Sep, [facility] [address] [id number] [place] [address]- 3556 Aug, [facility] [address] [id number] [place] [address]- 6067 Aug, [facility] [address] [id number] [place] [address]- 254 05 Aug, 2012 [facility] [address] [id number] [place] [address]- 8359 18 Jul, 2012 [facility] [address] [id number] [place] [address]- 2546 08 Jul, 2012 [facility] [address] [id number] [place] [address]- 6590 07 Jul, 2012 [facility] [place] [facility] [address] [id number] [place] [address]- 6538 06 Jul, 2012 [facility] [place] [facility] [address] [id number] [place] [address]- 0332 05 Jul, 2012 [facility] [place] [facility] [address] [id number] [place] [address]- 2043 Jun, [facility] [place] [facility] [address] [id number] [place] [address]- 2857 Jun, [facility] [place] [facility] [address] [id number] [place] [address]- 9591 Jun, [facility] [place] [facility] [address] [id number] [place] [address]- 7844 May, [facility] [place] [facility] [address] [id number] [place] [address]- 2097 May, [facility] [place] [facility] [address] [id number] [place] [address]- 8294 May, [facility] [place] [facility] [address] [id number] [place] [address]- 2183 May, [facility] [place] [facility] [address] [id number] [place] [address]- 2074 May, [facility] [place] [facility] [address] [id number] [place] [address]- 7563 May, [facility] [place] [facility] [address] [id number] [place] [address]- 4154 May, [facility] [place] [facility] [address] [id number] [place] [address]- 3484 Apr, [facility] [place] [facility] [address] [id number] [place] [address]- 0396 Apr, [facility] [place] [facility] [address] [id number] [place] [address]- 0791 Apr, [facility] [place] [facility] [address] [id number] [place] [address]- 0939 Apr, [facility] [place] [facility] [address] [id number] [place] [address]- 2578 Apr, [facility] [place] [facility] [address] [id number] [place] [address]- 6566 Apr, [facility] [place] [facility] [address] [id number] [place] [address]- 8016 Apr, [facility] [place] [facility] [address] [id number] [place] [address]- 1936 Apr, [facility] [place] [facility] [address] [id number] [place] [address]- 3945 Apr, [facility] [place] [facility] [address] [id number] [place] [address]- 9731 Apr, [facility] [place] [facility] [address] [facility] [id number] [place] [address] Apr, [facility] [place] [facility] [address] [id number] [place] [address] Mar, [facility] [place] [facility] [address] [id number] [place] [address] Mar, [facility] [place] [facility] [address] [facility] [id number] [place] [address] Mar, [facility] [place] [facility] [address] [id number] [place] [address] Mar, [facility] [place] [facility] [address] [id number], [place] [address] Mar, [facility] [place] [facility] [address] [id number] [place] [address]35 Mar, [facility] [place] [facility] [address] [facility] [id number] [place] [address] Mar, [facility] [place] [facility] [address] [id number], [place] [address] Mar, [facility] [place] [facility] [address] [id number] [place] [address]- [address] 16 Mar, 2012 [facility] [place] [facility] [address] [id number] [place] [address]- [address] 16 Mar, 2012 [facility] [place] [facility] [address] [id number] [place] [address]- [address]73 04 Mar, 2012 [facility] [place] [facility] [address] [id number] [place] [address], [place] [address] 2011 [facility] [place] [facility] [address] [id number] [place] [address] 27 Feb, 2011 [facility] [place] [facility] [address] [id number] [place] [address]- 8708 27 Feb, 2011 [facility] [place] [facility] [address] [id number] [place] [address]- 7065 26 Feb, 2011 [facility] [place] [facility] [address] [id number] [place] [address]- [address]236 24 Feb, 2012 [facility] [place] [facility] [address] [id number] [place] [address]- 6469 19 Feb, 2012 [facility] [place] [facility] [address] [id number] [place] [address]- [address]995 18 Feb, 2012 [facility] [place] [facility] [address] [id number] [place] [address]- 58[address] 18 Feb, 2012 [facility] [place] [facility] [address] [id number] [place] [address]- 6[address] 18 Feb, 2012 [facility] [place] [facility] [address] [id number] [place] [address]- [address]180 30 Jan, 2012 [facility] [place] [facility] [address] [id number] [place] [address] Jan, [facility] [place] [facility] [address] [id number] [place] [address] Jan, [facility] [place] [facility] [address] [id number] [place] [address] Jan, [facility] [place] [facility] [address] [id number] [place] [address]- [address] Dec, [facility] [place] [facility] [address] [id number] [place] [address] Dec, [facility] [place] [facility] [address] [id number] [place] [address]- 2096 Dec, [facility] [place] [facility] [address] [id number] [place] [address]- 6866 Dec, [facility] [place] [facility] [address] [id number] [place] [address] Dec, [facility] [place] [facility] [address] [id number] [place] [address]- 3923 Dec, [facility] [place] [facility] [address] [id number] [place] [address]- [address]383 Dec, [facility] [place] [facility] [address] [id number] [place] [address] 9750 Dec, [facility] [place] [facility] [address] [id number] [place] [address]- [address]509 Dec, [facility] [place] [facility] [address] [id number] [place] [address] 1353 Dec, [facility] [place] [facility] [address] [id number] [place] [address]- 3713 Dec, [facility] [place] [facility] [address] [id number] [place] [address]- [address]47 Dec, [facility] [place] [facility] [address] [id number] [place] [address]- [address] Dec, [facility] [place] [facility] [address] [id number] [place] [address] Dec, [facility] [place] [facility] [address] [id number] [place] [address]- [address] Nov, [facility] [place] [facility] [address] [id number] [place] [address]- 0965 14 Nov, 2011 [facility] [address] [id number] [place] [address]- 3771 11 Nov, 2011 [facility] [address] [id number] [place] [address]- 1750 07 Nov, 2011 [facility] [address] [id number] [place] [address]- [address]288 07 Nov, 2011 [facility] [address] [id number] [place] [address]- 5662 07 Nov, 2011 [facility] [address] [id number] [place] [address]- 4777 30 Oct, 2011 [facility] [address] [id number] [place] [address]- 9851 October, [facility] [address] [id number] [place] [address]161 October, [facility] [address] [id number] [place] [address]- 4875 October, [facility] [address] [id number] [place] [address]- 7892 19 Sep, 2011 [facility] [address] [id number] [place] [address]- 4661 17 Sep, 2011 [facility] [address] [id number] [place] [address]- 6833 13 Sep, 2011 [facility] [address] [id number] [place] [address]- 4997 09 Sep, 2011 [facility] [place] [facility] [address] [id number] [place] [address]- 6805 03 Sep, 2011 [facility] [address] [id number] [place] [address] Aug, [facility] [address] [id number] [place] [address]- 6817 Aug, [facility] [address] [id number] [place] [address]- 9843 Aug, [facility] [address] [id number] [place] [address]- 3976 20 Aug, 2011 [facility] [address] [facility] [id number] [place] [address]- 6777 13 Aug, 2011 [facility] [address] [id number] [place] [address]- 2705 02 Aug, 2011 [facility] [address] [id number] [place] [address]- 4660 Aug, [facility] [address] [id number] [place] [address]- 9812 16 Jul, 2011 [facility] [address] [facility] [id number] [place] [address]- 0455 16 Jul, 2011 [facility] [address] [facility] [id number] [place] [address]- 8091 15 Jul, 2011 [facility] [address] [facility] [id number] [place] [address]- 4697 15 Jul, 2011 [facility] [facility] [address] [id number] [address] 24 Jun, [address] [id number] Jun, [facility] [address] [facility] [id number], [place] [address] Jun, [facility] [address] [facility] [id number], [place] [address] Jun, [facility] [address] [facility] [id number], [place] [address] Jun, [facility] [address] [facility] [id number], [place] [address] 04 Jun, 2011 [facility] [address] [facility] [id number], [place] [address] Jun, [facility] [place] [facility] [address] [id number] [place] [address] Jun, [facility] [place] [facility] [address] [id number] [place] [address] May, [facility] [place] [facility] [address] [id number] [place] [address] May, [facility] [place] [facility] [address] [id number] [place] [address] May, [facility] [place] [facility] [address] [id number] [place] [address] May, [facility] [place] [facility] [address] [id number] [place] [address] May, [facility] [place] [facility] [address] [id number] [place] [address] May, [facility] [place] [facility] [address] [id number] [place] [address] May, [facility] [place] [facility] [address] [id number] [place] [address] Apr, [facility] [place] [facility] [address] [id number] [place] [address] Apr, [facility] [place] [facility] [address] [id number], [place] [address] Apr, [facility] [place] [facility] [address] [id number] [place] [address] Mar, [facility] [place] [facility] [address] [id number] [place] [address] 20 Mar, 2011 [facility] [place] [facility] [address] [id number] [place] [address] 14 Mar, 2011 [facility] [place] [facility] [address] [id number] [place] [address] 11 Mar, 2011 [facility] [place] [facility] [address] [id number] [place] [address] 10 Mar, 2011 [facility] [address] [id number] [place] [address] 10 Mar, 2011 [facility] [place] [facility] [address] [id number] [place] [address] 10 Mar, 2011 [facility] [address] [id number] [place] [address] 11 Jan, 2011 [facility] [address] [id number] [place] [address] 27 May, 2010 [facility] [address] [id number] [place] [address] 21 May, 2010 [facility] [address] [id number] [place] [address]27 13 May, 2010 [facility] [address] [id number] [place] [address] 13 May, 2010 [facility] [address] [id number] [place] [address] 10 May, 2010 [facility] [address] [id number] [place] [address] 06 May, 2010 [facility] [address] [id number] [place] [address] 99[address] 29 Apr, 2010 [facility] [place] [facility] [address] [id number] [place] [address] 2548 26 Apr, 2010 [facility] [address] [id number] [place] [address]44 19 Apr, 2010 [facility] [place] [facility] [address] [id number] [place] [address] 18 Apr, 2010 [facility] [place] [facility] [address] [id number] [place] [address]47 15 Apr, 2010 [facility] [place] [facility] [address] [id number] [place] [address] Apr, [facility] [address] [id number], [place] [address] Apr, [facility] [address]65[address], [place] [address] Apr, [facility] [id number], [place] [address] Apr, [facility] [address]65[address], [place] [address] Apr, [facility] [address]65[address], [place] [address] Mar, [facility] [address]65[address], [place] [address] Mar, [facility] [address]65[address], [place] [address] Mar, [facility] [address]65[address], [place] [address] Mar, [facility] [address]65[address], [place] [address] Mar, [facility] [address], [place] [address] Dec, [facility] [address] [id number] [address] [address] Nov, IMMUNIZATIONS No Known Immunizations SOCIAL HISTORY Never Assessed REASON FOR VISIT Pain management (chronic)-Sarah OTERO, PT is wanting a note stating she can not have- eggs, milk, soda, juice, coffee, chilli, sausage, fish, and no greens PLAN OF CARE Activity Details Follow Up 2 Months Reason: VITAL SIGNS Height 62 in 2017-03-28 Weight 108.1 lbs 2017-03-28 Temperature 97.7 degrees Fahrenheit 2017-03-28 Heart Rate 68 bpm 2017-03-28 Respiratory Rate 18 2017-03-28 BMI 19.77 kg/m2 2017-03-28 Blood pressure systolic 124 mmHg 2017-03-28 Blood pressure diastolic 60 mmHg 2017-03-28 MEDICATIONS Medication Instructions Dosage Frequency Start Date End Date Duration Status Citalopram Hydrobromide 20 MG Orally Once a day 1 tablet 24h 30 days Active Lamotrigine 100 mg Orally 2 times a day 1 tablet 12h Active Zofran ODT 4 MG Orally every 8 hrs 1 tablet on the tongue and allow to dissolve 8h Active Vitamin D (Ergocalciferol) [address]46 UNIT Orally 2 times a day every 7 days 1 capsule Active Coumadin 1 MG Orally Once a day 1mg on Sat, , Sat, and Saturday, 1.5mg on Mond, wed, Fri 24h Active Fioricet 50-300-40 MG Orally every 6 hrs 1 capsule as needed 6h Active Ibuprofen 200 mg Orally every 8 hours as needed for headache 2 tablets Active Vitamin B-12 1000 MCG/ML Injection every 14 days 1 ml Active Flonase Allergy Relief Active Melatonin 3 MG Orally Once a day 1 tablet at bedtime as needed with food 24h Active MiraLax Active Fentanyl 75 MCG/HR Transdermal every 72 hours 1 patch to skin Feb, Mar, 30 days Active Tussin Cough DM 100-10 MG/5ML Orally every 6 hrs as needed for cough 10 ml as needed Active Nitro-Dur 0.2 MG/HR Transdermal Once a day 1 patch to skin remove after 12 hours 24h Active Topamax 100 MG Orally Twice a day 1 tablet 12h Active Sodium Bicarbonate 650 MG Orally Once a day 1 tablet 24h Active Hydrocortisone 2.5 % Externally every 24 hours as needed for dry skin 1 application to affected area Active Fexofenadine HCl 180 MG Orally Once a day 1 tablet 24h Active Omeprazole Magnesium 20.6 (20 Base) MG Orally Once a day 1 capsule 24h Active Metoprolol Tartrate 25 MG Orally Twice a day 1 tablet with food 12h Active Gabapentin 400 mg Orally at bedtime 1 tablet Active Refresh Liquigel 1 % Ophthalmic 4 times a day 1 drop into affected eye as needed 6h Active Folic Acid 1 MG TAKE 1 TABLET BY MOUTH EVERY DAY 30 Active Saline Mist [place] 0.65 % Nasally 1 spray in both nostrils every 4 hours 1 [place] Active Restasis 0.05 % 1 DROP EACH EYE TWICE DAILY 30 Active Clorazepate Dipotassium 3.75 MG Orally Twice a day 1` tablets 12h 28 Active Lipitor 40 MG Orally Once a day 1 tablet 24h Active Bisacodyl 10 MG Rectal Once a day 1 suppository as needed 24h Active Phenytoin 100 MG/4ML Orally at bedtime 150mg Active RESULTS No Results PROCEDURES Procedure Date Ordered Result Body Site [facility] VISIT ESTABLISHED PATIENT Mar 28, 2017 INSTRUCTIONS MEDICATIONS ADMINISTERED No Known Medications [...] and skin graft, cholecysectomy Hospitalization History [facility]2016 [facility]ization [facility] 08/2017
--- OUTSIDE RECORDS SUMMARY | 2018-02-04 13:19 | XMS REPORT ---
Author Author NAHOMY BETH Organization [facility] Address [address] [place] [address] Care Team Providers Care Spar Cap Beveler Name Role Phone NAHOMY BETH Unavailable PROBLEMS Type Condition ICD9-CM Code [id number] Code Onset Dates Condition Status SNOMED Code Problem History of colon polyps Z86.010 Active 662218929 Problem Factitious disorder imposed on self, recurrent episode F68.10 Active 86610298 Problem Anemia, unspecified type D64.9 Active 932826277 Problem Allergic state, subsequent encounter T78.40XD Active 346364511 Problem Unspecified psychosis not due to a substance or known physiological condition F29 Active 45542261 Problem Age-related osteoporosis without current pathological fracture M81.0 Active 20312421 Problem Personality disorder F60.9 Active 88612241 Problem Iron deficiency anemia, unspecified iron deficiency anemia type D50.9 Active 14004531 Problem Anxiety F41.9 Active 59493324 Problem History of CVA with residual deficit I69.30 Active 553386893 Problem Insomnia, unspecified type G47.00 Active 025696696 Problem Perennial allergic rhinitis, unspecified allergic rhinitis trigger J30.89 Active 381846424 Problem Seizure disorder G40.909 Active 120822257 Problem Chronic kidney disease, unspecified stage N18.9 Active 055158481 Problem Back pain M54.9 Active 433004318 Problem Gastroesophageal reflux disease without esophagitis K21.9 Active 872751815 ALLERGIES No Information ENCOUNTERS Encounter Location Date Diagnosis [facility] [address] [facility] [id number] [address] Dec, [facility] [address] [id number] [address] 6[address] Nov, [facility] [address] [id number], [place] [address] 9710 Nov, [facility] [address] [place] [address] 68011- 9727 October, [facility] [id number] [place] [address] 05213- 7946 October, Seizure disorder G40.909 ; Back pain M54.9 and Allergic state, subsequent encounter T78.40XD [facility] [id number] [place] [address] 08346- 8708 October, [facility] [id number] [place] [address] 26201- 4487 Sep, Back pain M54.9 [facility] [id number] [place] [address] 33442- 6953 Sep, Unspecified psychosis not due to a substance or known physiological condition F29 ; Personality disorder F60.9 and Factitious disorder imposed on self, recurrent episode F68.10 [facility] [id number] [place] [address] 77501- 4058 Sep, [facility] [id number] [place] [address] 84424- 8313 Sep, [facility] [id number] [place] [address] 45377- 9822 Sep, [facility] [id number] [place] [address] 68373- 7262 Sep, [facility] [id number] [place] [address] 77656- 2053 Aug, [facility] [address] [place] [address] 43002- 5499 Aug, Back pain M54.9 [facility] [id number] [place] [address] 87083- 9791 Aug, Factitious disorder imposed on self, recurrent episode F68.10 ; Personality disorder F60.9 ; Insomnia, unspecified type G47.00 and Anxiety F41.9 [facility] [address] [id number], [place] [address] 6186 Aug, Back pain M54.9 ; Iron deficiency anemia, unspecified iron deficiency anemia type D50.9 ; Chronic kidney disease, unspecified stage N18.9 and Breast cancer screening Z12.31 [facility] [address] [id number] [id number] Jul, Back pain M54.9 [facility] [id number] [id number] Jul, [facility] [id number][place] [id number] Jul, [facility] [id number], [place] [address] Jun, Back pain M54.9 [facility] [id number] [address] Jun, [facility] [address] [id number] [address] Jun, Back pain M54.9 [facility] [address] [id number], [place] [address] 1161 Jun, Back pain M54.9 ; Seizure disorder G40.909 and Age-related osteoporosis without current pathological fracture M81.0 [facility] [address] [id number] [id number] May, [facility] [address] [id number] [address] 1373 May, Back pain M54.9 [facility] [address] [id number], [place] [address] 3930 Apr, Back pain M54.9 ; Encounter for immunization Z23 ; Gastroesophageal reflux disease without esophagitis K21.9 ; Age-related osteoporosis without current pathological fracture M81.0 and Chronic pruritus L29.9 [facility] [address] [id number] [address] Apr, History of CVA with residual deficit I69.30 [facility] [address], [place] [address] 6969 16 Apr, 2017 Factitious disorder imposed on self, recurrent episode F68.10 and Personality disorder F60.9 [facility] [address] [id number] [id number] 08 Apr, 2017 Back pain M54.9 [facility] [id number] [place] [address] 67795- 2480 Mar, Factitious disorder imposed on self, recurrent episode F68.10 [facility] [id number] [place] [address] 08754- 8896 Mar, [facility] [id number] [place] [address] [id number] Mar, [facility] [id number] [place] [address] [id number] Mar, Back pain M54.9 [facility] [id number] [place] [address] 19517- 3832 Mar, Back pain M54.9 ; Seizure disorder G40.909 and Age-related osteoporosis without current pathological fracture M81.0 [facility] [address] [place] [address] 67070- 8857 Feb, History of CVA with residual deficit I69.30 [facility] [address] [place]1760[place], [place] [address] 3105 Feb, Factitious disorder imposed on self, recurrent episode F68.10 and Personality disorder F60.9 [facility] [address] [place] [address] 41598- 2581 15 Feb, 2017 Back pain M54.9 [facility] [address]00565100[place], [place] [address]- 2099 Feb, [facility] [id number] [place] [address] 20626- 2005 Jan, [facility] [address] [place] [address] Jan, Age- related osteoporosis without current pathological fracture M81.0 and Allergic state, subsequent encounter T78.40XD [facility] [address]00565100[place], [place] [address] 8518 Jan, Factitious disorder imposed on self, recurrent episode F68.10 and Personality disorder F60.9 [facility] [id number] [place] [address] 30440- 7130 Dec, Back pain M54.9 [facility] [address] [place] [address] 42548- 0462 Dec, Personality disorder F60.9 and Factitious disorder imposed on self, recurrent episode F68.10 [facility] [address] [id number] [address] Dec, Back pain M54.9 [facility] [id number] [place] [address] [id number] Dec, [facility] [id number] [place] [address] [id number] Dec, [facility] [address] [place] [address] 88568- 8410 Dec, [facility] [address]00565[address], [place] [address]- 6212 Nov, [facility] [id number] [place] [address] 23565- 4576 Nov, Back pain M54.9 ; Anemia, unspecified type D64.9 and History of colon polyps Z86.010 [facility] [address]00565[address], [place] [address]- 5713 Nov, Back pain M54.9 [facility] [id number] [place] [address] [id number] October, Back pain M54.9 [facility] [address] [place] [id number] October, Back pain M54.9 and Gastroesophageal reflux disease without esophagitis K21.[address] [facility] [id number] [address] Sep, [facility] [address]65[address], [place] [address]- 2897 Sep, [facility] [address] [place] [address] 54948- 3921 Sep, [facility] [id number] [place] [address] 50663- 0224 Sep, [facility] [address] [place] [address] 70688- 8984 Sep, [facility] [address] [place] [address] 36246- 6889 Sep, Seizure disorder G40.909 [facility] [address] [place] [address] 62364- 4029 Sep, Back pain M54.9 [facility] [address], [place] [address]- 8031 Sep, [facility] [address] [place] [address] 14921- 1123 Aug, Back pain M54.9 [facility] [address]65[address], [place] [address]- 8132 Aug, Seizure disorder G40.909 [facility] [id number][place] [id number] Aug, [facility] [id number][place] [id number] 16 Aug, 2016 Back pain M54.9 [facility] [address] [id number] [address] Aug, Back pain M54.9 [facility] [id number], [place] [address] Aug, Back pain M54.9 [facility] [address] [place] [id number] Jul, Weakness R53.1 [facility] [id number] [place] [address] 09181- 2422 Jul, Seizure disorder G40.909 [facility] [id number] [place] [address] 40655- 5748 Jul, [facility] [id number] [place] [address] 01569- 6654 Jul, Breast cancer screening Z12.39 [place] [address] 76258- 3192 Jul, [facility] [id number] [place] [address] 51929- 6075 Jul, [facility] [id number] [place] [address] 68768- 6984 Jul, [facility] [id number] [place] [address] 00403- 9821 Jul, Seizure disorder G40.909 ; Fatigue, unspecified type R53.83 ; Perennial allergic rhinitis, unspecified allergic rhinitis trigger J30.89 and Chronic kidney disease, unspecified stage N18.9 [facility] [address] [place] [address] 55470- 9898 Jul, [facility] [address] [place] [address] 10421- 3613 Jul, Seizure disorder G40.909 [facility] [id number] [place] [address] 57640- 2077 Jun, [facility] [id number] [place] [address] 74427- 5265 Jun, [facility] [address] [place] [address] Jun, Perennial allergic rhinitis, unspecified allergic rhinitis trigger J30.89 [facility] [id number] [place] [address] [id number] Jun, [facility] [address] [place] [address] 17249062- 6511 Jun, Seizure disorder G40.909 [facility] [id number] [place] [address] [id number] Jun, [facility] [id number] [place] [address] [id number] May, [facility] [id number] [place] [address] 90952- 0766 May, [facility] [id number] [place] [address] 33030- 6391 May, [facility] [id number] [place] [address] 03475- 3219 May, [facility] [id number] [place] [address] 58752- 4907 May, History of CVA with residual deficit I69.30 [facility] [address] [place] [address] 20336- 6038 May, [facility] [address] [place] [address] 67485- 7538 May, [facility] [address] [place] [address] 18725- 3697 May, [facility] [id number] [place] [address] 57188- 0750 May, Seizure disorder G40.909 [facility] [address] [place] [address] 98086- 1146 May, [facility] [address] [place] [address] May, Back pain M54.9 and Seizure disorder G40.909 [facility] [address] [place] [address] 78798- 7352 Apr, [facility] [id number], [place] [address]- 9767 Apr, Back pain M54.9 [facility] [id number], [place] [address]- 9978 Mar, [facility] [address] [place] [address] Mar, Insomnia, unspecified type G47.00 [facility] [address] [facility] [id number], [place] [address]- 5580 Mar, [facility] [address] [place] [address] 25328- 6164 Feb, [facility] [id number] [place] [address] 81279- 1184 Feb, [facility] [id number] [place] [address] 91725- 9832 Feb, [facility] [address], [place] [address]- 9479 Jan, [facility] [address] [place] [address] 98028- 2563 Jan, [facility] [address] [place] [address] Jan, Seizure disorder G40.909 and Back pain M54.9 [facility] [address], [place] [address]- 7454 Dec, [facility] [address] [facility] [id number], [place] [address]- 2830 Dec, [facility] [address], [place] [address]- 1715 Dec, [facility] [id number], [place] [address]- 3495 Nov, [facility] [address], [place] [address]- 0686 Nov, [facility] [address] [place] [address] 55966- 6353 Nov, Back pain M54.9 [facility] [id number] [place] [address] 96446- 4896 October, [facility] [id number] [place] [address] 81568- 0026 October, Back pain M54.9 [facility] [id number] [place] [address] 80654 2546 October, Seizure disorder G40.909 and B12 deficiency E53.8 [facility] [id number] [place] [address] 46472- 8646 Sep, History of CVA with residual deficit I69.30 [facility] [id number] [place] [address] 13819- 1678 Sep, [facility] [id number] [place] [address] 54631- 4641 Sep, [facility] [id number] [place] [address] 54930- 3379 Sep, Back pain M54.9 [facility] [id number] [place] [address] 01999- 7596 Sep, Seizure disorder G40.909 [facility] [id number] [place] [address] 04383 2546 Aug, Back pain M54.9 [facility] [address] [place] [address] 46693- 0656 Aug, Seizure disorder G40.909 [facility] [id number] [place] [address] 87955 2546 16 Aug, 2015 Back pain M54.9 [facility] [address] [place] [address] 58940 2546 14 Aug, 2015 Heart failure, unspecified I50.9 [facility] [id number] [place] [address] 34591- 0005 14 Aug, 2015 Medication monitoring encounter Z51.81 [facility] [address] 42025- 4398 15 Jul, 2015 [facility] [address] 64236- 7052 09 Jul, 2015 Seizure disorder G40.909 [facility] [address] 20834- 3210 05 Jul, 2015 Back pain M54.9 [facility] [address] 18425- 8281 Jun, [facility] [address] 69859- 9527 Jun, [facility] [address] 94494- 9387 Jun, Mental status change R41.82 ; History of CVA with residual deficit I69.30 ; Back pain M54.9 and Seizure disorder G40.909 [facility] [id number] [place] [address] 68754- 7826 Jun, [facility] [id number] [place] [address] 44875- 7181 May, [facility] [address] 50192- 6873 Apr, [facility] [id number] [place] [address] 62285- 4127 Apr, Medication monitoring encounter Z51.81 [facility] [address] 82672- 4858 Mar, Vomiting R11.10 [facility] [address] 47734- 4967 Mar, [facility] [address] [place] [address] 2546 Feb, [facility] [address] [id number] [place] [address]- 9035 Feb, UTI (urinary tract infection) 599.0 [facility] [address] [id number] [place] [address]- 8046 Jan, [facility] [address] [id number] [place] [address]- 8306 Jan, [facility] [address] [id number] [place] [address]- 8183 Jan, [facility] [address] [id number] [place] [address]- 5524 Dec, [facility] [address] [id number] [place] [address]- 4800 Dec, [facility] [address] [id number] [place] [address]- 7634 Dec, [facility] [address] [id number] [place] [address]- 7353 Dec, [facility] [address] [id number] [place] [address]- 7171 Nov, UNKNOWN Nov, [facility] [address] [id number] [place] [address]- 2546 October, [facility] [address] [id number] [place] [address]- 4764 Sep, [facility] [place] [facility] [address] [id number] [place] [address]- 0972 Sep, [facility] [place] [facility] [address] [id number] [place] [address]- 9473 Aug, [facility] [place] [facility] [address] [id number] [place] [address]- 2107 Aug, [facility] [place] [facility] [address] [id number] [place] [address]- 5683 Jul, [facility] [place] [facility] [address] [id number] [place] [address]- 5653 Jul, [facility] [place] [facility] [address] [id number] [place] [address]- 0836 Jul, [facility] [place] [facility] [address] [id number] [place] [address]- 2066 Jul, [facility] [place] [facility] [address] [id number] [place] [address]- 3927 Jul, [facility] [place] [facility] [address] [id number] [place] [address]- 8309 Jun, [facility] [place] [facility] [address] [id number] [place] [address]- 0006 Jun, [facility] [place] [facility] [address] [id number] [place] [address]- 4716 Jun, [facility] [place] [facility] [address] [id number] [place] [address]- 9624 Jun, [facility] [place] [facility] [address] [id number] [place] [address]- 8762 Jun, [facility] [place] [facility] [address] [id number] [place] [address]- 5205 Jun, [facility] [place] [facility] [address] [id number] [place] [address]- 3294 Jun, [facility] [place] [facility] [address] [id number], [place] [address]- 8788 Jun, [facility] [place] [facility] [address] [id number] [place] [address]- 0482 Jun, [facility] [place] [facility] [address] [id number] [place] [address]- 8781 Jun, [facility] [place] [facility] [address] [id number], [place] [address]- 4247 Jun, [facility] [place] [facility] [address] [id number] [place] [address]- 7200 Jun, [facility] [place] [facility] [address] [id number] [place] [address]- 1262 Jun, [facility] [place] [facility] [address] [id number] [place] [address]- 6128 Jun, [facility] [place] [facility] [address] [id number] [place] [address]- 9998 Jun, [facility] [place] [facility] [address] [id number] [place] [address]- 2903 Jun, [facility] [place] [facility] [address] [id number] [place] [address]- 8650 Jun, [facility] [place] [facility] [address] [id number] [place] [address]- 9113 Jun, [facility] [place] [facility] [address] [id number] [place] [address]- 5467 May, [facility] [place] [facility] [address] [id number] [place] [address] 30 May, 2014 [facility] [place] [facility] [address] [id number] [place] [address] 30 May, 2014 [facility] [place] [facility] [address] [id number] [place] [address] 30 May, 2014 [facility] [place] [facility] [address] [id number] [place] [address] 19 May, 2014 [facility] [place] [facility] [address] [id number] [place] [address] 16 May, 2014 [facility] [place] [facility] [address] [id number] [place] [address] 16 May, 2014 [facility] [place] [facility] [address] [id number] [place] [address] 15 May, 2014 [facility] [place] [facility] [address] [id number] [place] [address] May, [facility] [address] [facility] [place] [id number] May, [facility] [place] [facility] [address] [id number] [place] [address] May, [facility] [place] [facility] [address] [id number] [place] [address] May, [facility] [place] [facility] [address] [id number] [place] [address] May, [facility] [place] [facility] [address] [id number] [place] [address] Apr, [facility] [place] [facility] [address] [id number] [place] [address] Apr, [facility] [place] [facility] [address] [id number] [place] [address] Apr, [facility] [place] [facility] [address] [id number] [place] [address] Apr, [facility] [place] [facility] [address] [id number] [place] [address] Apr, [facility] [place] [facility] [address] [id number], [place] [address] Apr, [facility] [place] [facility] [address] [id number], [place] [address] Mar, [facility] [place] [facility] [address] [id number], [place] [address] Mar, [facility] [place] [facility] [address] [id number] [place] [address] Mar, [facility] [place] [facility] [address] [id number] [place] [address] Mar, [facility] [place] [facility] [address] [id number], [place] [address] Mar, [facility] [place] [facility] [address] [id number], [place] [address] Mar, [facility] [address] [id number] [place] [address] 24 Feb, 2014 [facility] [place] [facility] [address] [id number] [place] [address] 24 Feb, 2014 [facility] [place] [facility] [address] [id number] [place] [address] Feb, [facility] [place] [facility] [address] [id number] [place] [address] Feb, [facility] [place] [facility] [address] [id number] [place] [address] Feb, [facility] [place] [facility] [address] [id number] [place] [address] Feb, [facility] [address] [id number], [place] [address] Feb, [facility] [place] [facility] [address] [id number] [place] [address]- 4377 Feb, [facility] [address] [id number] [place] [address]- 0443 Feb, [facility] [place] [facility] [address] [id number] [place] [address]- 5827 Feb, [facility] [address] [place] [id number] Feb, [facility] [place] [facility] [address] [id number], [place] [address] Feb, [facility] [place] [facility] [address] [id number], [place] [address]- 4076 Jan, [facility] [place] [facility] [address] [id number] [place] [address]- 0917 Jan, [facility] [place] [facility] [address] [id number], [place] [address] 6511 Dec, [facility] [place] [facility] [address] [id number] [place] [address]- 0128 Dec, 2013 [facility] [place] [facility] [address] [id number] [place] [address]- 5884 Dec, 2013 [facility] [place] [facility] [address] [id number] [place] [address]- 2651 Dec, 2013 [facility] [place] [facility] [address] [id number] [place] [address]- 2999 Dec, 2013 [facility] [place] [facility] [address] [id number] [place] [address]- 2097 Dec, 2013 [facility] [place] [facility] [address] [id number] [place] [address]- 5811 Dec, [facility] [place] [facility] [address] [id number] [place] [address]- 7918 Dec, [facility] [place] [facility] [address] [id number] [place] [address]- 2115 Dec, [facility] [place] [facility] [address] [id number] [place] [address]- 7118 Dec, [facility] [place] [facility] [address] [id number] [place] [address]- 2242 Nov, [facility] [place] [facility] [address] [id number] [place] [address]- 0664 Nov, [facility] [place] [facility] [address] [id number] [place] [address]- 6819 Nov, [facility] [place] [facility] [address] [id number] [place] [address]- 4012 Nov, [facility] [place] [facility] [address] [id number] [place] [address]- 3376 Nov, [facility] [place] [facility] [address] [id number] [place] [address]- 5915 Nov, [facility] [place] [facility] [address] [id number] [place] [address]- 4644 Nov, [facility] [place] [facility] [address] [id number] [place] [address] 1972 Nov, [facility] [place] [facility] [address] [id number] [place] [address]- 8850 Nov, [facility] [place] [facility] [address] [id number] [place] [address]- 8055 Nov, [facility] [place] [facility] [address] [id number] [place] [address]- 1455 Nov, [facility] [place] [facility] [address] [id number] [place] [address]- 9314 Nov, [facility] [place] [facility] [address] [id number] [place] [address]- 9049 Nov, [facility] [place] [facility] [address] [id number] [place] [address]- 9043 Nov, [facility] [place] [facility] [address] [id number] [place] [address]- 4024 October, [facility] [place] [facility] [address] [id number] [place] [address]- 2284 October, [facility] [place] [facility] [address] [id number] [place] [address]- 7950 October, [facility] [place] [facility] [address] [id number] [place] [address]- 1292 October, [facility] [place] [facility] [address] [id number] [place] [address]- 9370 October, [facility] [place] [facility] [address] [id number] [place] [address]- 6686 October, [facility] [place] [facility] [address] [id number] [place] [address]- 0883 October, [facility] [place] [facility] [address] [id number] [place] 4449 October, [facility] [place] [facility] [address] [id number] [place] [address]- 8270 October, [facility] [place] [facility] [address] [id number] [place] [address]- 1532 October, [facility] [place] [facility] [address] [id number] [place] [address]- 7892 Sep, [facility] [place] [facility] [address] [id number] [place] [address]- 0087 Sep, [facility] [place] [facility] [address] [id number] [place] [address]- 1643 Sep, [facility] [place] [facility] [address] [id number] [place] [address]- 2909 Sep, [facility] [place] [facility] [address] [id number] [place] [address]- 0111 Sep, [facility] [place] [facility] [address] [id number] [place] [address]- 1100 Sep, [facility] [place] [facility] [address] [id number] [place] [address]- 1946 Sep, [facility] [place] [facility] [address] [id number] [place] [address]- 6411 Sep, [facility] [place] [facility] [address] [id number] [place] [address]- 9391 Sep, [facility] [place] [facility] [address] [id number] [place] [address]- 1967 Sep, [facility] [place] [facility] [address] [id number] [place] [address]- 0780 Aug, [facility] [place] [facility] [address] [id number] [place] [address]- 2195 Aug, [facility] [place] [facility] [address] [id number] [place] [address]- 4802 Aug, [facility] [place] [facility] [address] [id number] [place] [address]- 4994 Aug, [facility] [place] [facility] [address] [id number] [place] [address]- 0893 06 Aug, 2013 [facility] [place] [facility] [address] [id number] [place] [address]- 8017 Aug, [facility] [place] [facility] [address] [id number] [place] [address]- 6257 Aug, [facility] [place] [facility] [address] [id number] [place] [address]- 6378 Aug, [facility] [place] [facility] [address] [id number] [place] [address]- 2629 Aug, [facility] [place] [facility] [address] [id number] [place] [address]- 6853 Jul, [facility] [place] [facility] [address] [facility] [id number] [place] [address]- 6747 Jul, [facility] [place] [facility] [address] [facility] [id number] [place] [address]- 9761 Jul, [facility] [place] [facility] [address] [id number] [place] [address]- 7177 Jul, [facility] [place] [facility] [address] [facility] [id number] [place] [address]- 8579 Jul, [facility] [place] [facility] [address] [facility] [id number] [place] [address]- 6650 Jul, [facility] [place] [facility] [address] [facility] [id number], [place] [address]- 2717 Jul, [facility] [place] [facility] [address] [id number] [place] [address]- 8753 Jul, [facility] [place] [facility] [address] [id number] [place] [address]- 4211 Jul, [facility] [place] [facility] [address] [facility] [id number] [place] [address]- 4893 Jul, [facility] [place] [facility] [address] [facility] [id number], [place] [address]- 2536 06 Jul, 2013 [facility] [place] [facility] [address] [id number] [place] [address]- 5507 06 Jul, 2013 [facility] [place] [facility] [address] [id number] [place] 8526 Jul, [facility] [place] [facility] [address] [id number] [place] [address]- 9426 Jul, [facility] [place] [facility] [address] [id number] [place] [address]- 9377 Jul, [facility] [place] [facility] [address] [id number] [place] [address]- 9999 Jul, [facility] [place] [facility] [address] [id number] [place] [address]- 7821 Jun, [facility] [place] [facility] [address] [id number] [place] [address]- 9686 Jun, [facility] [place] [facility] [address] [id number] [place] [address]- 2008 Jun, [facility] [place] [facility] [address] [id number] [place] [address]- 0252 Jun, [facility] [place] [facility] [address] [id number] [place] [address]- 3379 Jun, [facility] [place] [facility] [address] [id number] [place] [address]- 7940 Jun, [facility] [place] [facility] [address] [id number] [place] [address]- 2938 May, [facility] [place] [facility] [address] [id number] [place] [address]- 9747 May, [facility] [place] [facility] [address] [id number] [place] [address]- 5396 May, [facility] [place] [facility] [address] [id number] [place] [address]- 4311 May, [facility] [place] [facility] [address] [id number] [place] [address]- 0014 Apr, [facility] [place] [facility] [address] [id number] [place] [address]- 2514 Apr, [facility] [place] [facility] [address] [id number] [place] [address]- 6661 Apr, [facility] [place] [facility] [address] [id number] [place] [address]- 6102 Apr, [facility] [place] [facility] [address] [id number] [place] [address]- 6303 Apr, [facility] [place] [facility] [address] [id number] [place] [address]- 1299 Apr, [facility] [place] [facility] [address] [id number] [place] [address]- 3704 Apr, [facility] [place] [facility] [address] [id number], [place] [address]- 2269 Apr, [facility] [place] [facility] [address] [id number] [place] [address]- 7929 Apr, [facility] [place] [facility] [address] [id number], [place] [address]- 0882 Apr, [facility] [place] [facility] [address] [id number], [place] [address]- 3225 Apr, [facility] [place] [facility] [address] [id number], [place] [address]- 6523 Apr, [facility] [place] [facility] [address] [id number], [place] [address]- 0312 Mar, [facility] [place] [facility] [address] [id number], [place] [address]- 9859 28 Mar, 2013 [facility] [place] [facility] [address] [id number], [place] [address]- 5445 16 Mar, 2013 [facility] [place] [facility] [address] [id number], [place] [address]- 9120 16 Mar, 2013 [facility] [place] [facility] [address] [id number] [place] [address]- 9876 15 Mar, 2013 [facility] [place] [facility] [address] [id number] [place] [address]- 3544 15 Mar, 2013 [facility] [place] [facility] [address] [id number] [place] [address]- 3466 27 Feb, 2013 [facility] [place] [facility] [address] [id number] [place] [address] 2544 25 Feb, 2013 [facility] [place] [facility] [address] [id number] [place] [address]- 8062 25 Feb, 2013 [facility] [place] [facility] [address] [id number] [place] [address]- 9712 23 Feb, 2013 [facility] [place] [facility] [address] [id number] [place] [address]- 9515 17 Feb, 2013 [facility] [place] [facility] [address] [id number] [place] [address]- 0098 10 Feb, 2013 [facility] [place] [facility] [address] [id number] [place] [address]- 2355 04 Feb, 2013 [facility] [place] [facility] [address] [id number] [place] [address]- 4195 30 Jan, 2013 [facility] [place] [facility] [address] [id number] [place] [address]- 5424 Jan, [facility] [place] [facility] [address] [id number] [place] [address]- 2453 Jan, [facility] [place] [facility] [address] [id number] [place] [address]- 4619 14 Jan, 2013 [facility] [place] [facility] [address] [id number] [place] [address]- 7681 Jan, [facility] [place] [facility] [address] [id number] [place] [address]- 1116 Jan, [facility] [place] [facility] [address] [id number] [place] [address]- 2546 Jan, [facility] [address] [id number] [place] [address]- 4656 Dec, [facility] [place] [facility] [address] [id number] [place] [address]- 2546 Dec, [facility] [address] [id number] [place] [address]- 9726 Dec, [facility] [address] [id number] [place] [address]- 2542 Dec, [facility] [address] [id number] [place] [address]- 0766 Dec, [facility] [address] [id number] [place] [address]- 6226 Dec, [facility] [address] [id number] [place] [address]- 0882 Nov, [facility] [address] [id number] [place] [address]- 2052 Nov, [facility] [address] [id number] [place] [address]- 6616 Nov, [facility] [address] [id number] [place] [address]- 2224 Nov, [facility] [place] [facility] [address] [id number] [place] [address]- 1336 October, [facility] [address] [id number] [place] [address]- 9526 October, [facility] [place] [facility] [address] [id number] [place] [address]- 2546 October, [facility] [place] [facility] [address] [id number] [place] [address]- 2546 October, [facility] [place] [facility] [address] [id number] [place] [address]- 1217 Sep, [facility] [address] [id number] [place] [address]- 4774 Sep, [facility] [place] [facility] [address] [id number] [place] [address]- 8326 16 Sep, 2012 [facility] [place] [facility] [address] [id number] [place] [address]- 0024 Sep, [facility] [place] [facility] [address] [id number] [place] [address]- 8771 Sep, [facility] [place] [facility] [address] [id number] [place] [address]- 9691 Sep, [facility] [place] [facility] [address] [id number] [place] [address]- 5768 Sep, [facility] [place] [facility] [address] [id number] [place] [address]- 3887 Sep, [facility] [place] [facility] [address] [id number] [place] [address]- 9562 Aug, [facility] [place] [facility] [address] [id number] [place] [address]- 6229 Aug, [facility] [place] [facility] [address] [id number], [place] [address]- 3692 Aug, [facility] [place] [facility] [address] [id number] [place] [address]- 4343 18 Jul, 2012 [facility] [place] [facility] [address] [id number], [place] [address]- 7319 08 Jul, 2012 [facility] [place] [facility] [address] [id number] [place] [address]- 2727 07 Jul, 2012 [facility] [place] [facility] [address] [id number], [place] [address]- 8979 06 Jul, 2012 [facility] [place] [facility] [address] [id number], [place] [address]- 6475 05 Jul, 2012 [facility] [place] [facility] [address] [id number] [place] [address]- 8625 Jun, [facility] [address] [id number] [place] [address]- 1015 Jun, [facility] [address] [id number] [place] [address]- 7202 Jun, [facility] [address] [id number] [place] [address]- 5450 May, [facility] [address] [id number] [place] [address]- 9204 May, [facility] [address] [id number] [place] [address]- 6288 May, [facility] [address] [id number] [place] [address]- 0690 May, [facility] [address] [id number] [place] [address]- 0636 May, [facility] [address] [id number] [place] [address]- 9591 May, [facility] [address] [id number] [place] [address]- 6502 May, [facility] [address] [id number] [place] [address]- 5263 Apr, [facility] [address] [id number] [place] [address]- 2849 Apr, [facility] [address] [id number] [place] [address]- 1281 Apr, [facility] [place] [facility] [address] [id number] [place] [address]- 0681 Apr, [facility] [place] [facility] [address] [id number] [place] [address]- 2208 Apr, [facility] [address] [id number] [place] [address]- 5888 Apr, [facility] [place] [facility] [address] [id number] [place] [address]- 9468 Apr, [facility] [place] [facility] [address] [id number] [place] [address]- 6652 Apr, [facility] [place] [facility] [address] [id number] [place] [address]- 7335 Apr, [facility] [place] [facility] [address] [id number] [place] [address]- 4781 Apr, [facility] [place] [facility] [address] [id number] [place] [address]- 3238 Apr, [facility] [place] [facility] [address] [id number] [place] [address]- 2844 Mar, [facility] [place] [facility] [address] [facility] [id number] [place] [address]- 7516 Mar, [facility] [place] [facility] [address] [id number], [place] [address]- 8755 Mar, [facility] [place] [facility] [address] [id number], [place] [address]- 7377 Mar, [facility] [place] [facility] [address] [facility] [id number], [place] [address]- 6411 Mar, [facility] [place] [facility] [address] [facility] [id number], [place] [address]- 7591 Mar, [facility] [place] [facility] [address] [id number], [place] [address]- 1062 Mar, [facility] [place] [facility] [address] [id number], [place] [address]- 3271 Mar, [facility] [place] [facility] [address] [id number][place] 3679 Mar, [facility] [place] [facility] [address] [facility] [id number][place] 0586 Mar, [facility] [place] [facility] [address] [id number], [place] [address]- 8805 04 Mar, 2012 [facility] [place] [facility] [address] [id number] [place] [address] 2546 2011 [facility] [place] [facility] [address] [id number] [place] [address] 2546 27 Feb, 2011 [facility] [place] [facility] [address] [id number] [place] [address]- 1026 27 Feb, 2011 [facility] [place] [facility] [address] [id number] [place] [address] 2543 26 Feb, 2011 [facility] [place] [facility] [address] [id number] [place] [address]- 1136 24 Feb, 2012 [facility] [place] [facility] [address] [id number] [place] [address]- 5256 19 Feb, 2012 [facility] [place] [facility] [address] [id number] [place] [address]- 9997 18 Feb, 2012 [facility] [place] [facility] [address] [id number] [place] [address]- 6349 18 Feb, 2012 [facility] [place] [facility] [address] [id number] [place] [address]- 4754 18 Feb, 2012 [facility] [place] [facility] [address] [id number] [place] [address]- 5559 Jan, [facility] [place] [facility] [address] [id number] [place] [address] Jan, [facility] [place] [facility] [address] [id number] [place] [address] 254 Jan, [facility] [place] [facility] [address] [id number] [place] [address] Jan, [facility] [place] [facility] [address] [facility] [id number] [place] [address] Dec, [facility] [place] [facility] [address] [facility] [id number] [place] [address] Dec, [facility] [place] [facility] [address] [id number] [place] [address] Dec, [facility] [place] [facility] [address] [id number] [place] [address] Dec, [facility] [place] [facility] [address] [id number] [place] [address] Dec, [facility] [place] [facility] [address] [id number] [place] [address] Dec, [facility] [place] [facility] [address] [id number] [place] [address] Dec, [facility] [place] [facility] [address] [id number] [place] [address] Dec, [facility] [place] [facility] [address] [id number] [place] [address] 47[address] Dec, [facility] [place] [facility] [address] [id number] [place] [address] 5824 Dec, [facility] [place] [facility] [address] [id number] [place] [address] 60[address] Dec, [facility] [place] [facility] [address] [id number] [place] [address]- 4296 Dec, [facility] [place] [facility] [address] [id number] [place] [address]- 4646 Dec, [facility] [place] [facility] [address] [id number] [place] [address]- 2592 Dec, [facility] [place] [facility] [address] [id number] [place] [address] Nov, [facility] [place] [facility] [address] [id number] [place] [address] 39[address] Nov, [facility] [place] [facility] [address] [id number] [place] [address]- 1233 Nov, [facility] [place] [facility] [address] [id number] [place] [address]- [address] Nov, [facility] [address] [id number] [place] [address] 3600 Nov, [facility] [place] [facility] [address] [id number] [place] [address]- 4721 Nov, [facility] [place] [facility] [address] [id number] [place] [address]- [address] October, [facility] [place] [facility] [address] [id number] [place] [address]- 3042 October, [facility] [place] [facility] [address] [id number] [place] [address]- 2556 October, [facility] [place] [facility] [address] [id number] [place] [address]- 4902 October, [facility] [place] [facility] [address] [id number] [place] [address]578 Sep, [facility] [place] [facility] [address] [id number] [place] [address]- 9027 17 Sep, 2011 [facility] [place] [facility] [address] [id number] [place] [address]- 46[address] 13 Sep, 2011 [facility] [place] [facility] [address] [id number] [place] [address]- 7905 Sep, [facility] [place] [facility] [address] [id number] [place] [address]- 5671 Sep, [facility] [place] [facility] [address] [id number], [place] [address] Aug, [facility] [place] [facility] [address] [id number] [place] [address]- 3576 Aug, [facility] [place] [facility] [address] [id number] [place] [address]- 0598 Aug, [facility] [place] [facility] [address] [id number] [place] [address]- 0328 Aug, [facility] [place] [facility] [address] [facility] [id number], [place] [address] 13 Aug, 2011 [facility] [address] [facility] [id number] [place] [address]261 Aug, [facility] [address] [facility] [id number] [place] [address] 2383 Aug, [facility] [address] [facility] [id number], [place] [address] 16 Jul, 2011 [facility] [address] [facility] [id number] [place] [address] 9106 Jul, [facility] [address] [facility] [id number] [place] [address]60 Jul, [facility] [address] [id number] [place] [address] Jul, [facility] [id number], [place] [address] Jun, [facility] [address] [place] [id number] Jun, [facility] [id number], [place] [address] Jun, [facility] [id number], [place] [address]99 Jun, [facility] [address] [id number], [place] [address] Jun, [facility] [address] [facility] [id number], [place] [address]- 8631 Jun, [facility] [address] [id number], [place] [address] Jun, [facility] [address] [facility] [id number], [place] [address]- [address] Jun, [facility] [address] [id number], [place] [address] May, [facility] [place] [facility] [address] [id number] [place] [address]- 1433 29 May, 2011 [facility] [place] [facility] [address] [id number] [place] [address]- 5316 May, [facility] [place] [facility] [address] [id number] [place] [address]- 2586 May, [facility] [place] [facility] [address] [id number] [place] [address]- 8200 May, [facility] [place] [facility] [address] [id number] [place] [address]- 4887 May, [facility] [place] [facility] [address] [id number] [place] [address] May, [facility] [place] [facility] [address] [id number] [place] [address]- 1121 Apr, [facility] [place] [facility] [address] [id number] [place] [address]- 6051 Apr, [facility] [place] [facility] [address] [id number] [place] [address]- 6361 Apr, [facility] [place] [facility] [address] [id number] [place] [address]- 5698 Mar, [facility] [place] [facility] [address] [id number] [place] [address]- 3647 20 Mar, 2011 [facility] [place] [facility] [address] [id number] [place] [address]- 4708 14 Mar, 2011 [facility] [place] [facility] [address] [id number] [place] [address]- 7040 11 Mar, 2011 [facility] [place] [facility] [address] [id number] [place] [address]- 5978 10 Mar, 2011 [facility] [place] [facility] [address] [id number] [place] [address] 10 Mar, 2011 [facility] [place] [facility] [address] [id number] [place] [address]- 0972 10 Mar, 2011 [facility] [place] [facility] [address] [id number] [place] [address]- 6387 11 Jan, 2011 [facility] [place] [facility] [address] [id number] [place] [address] 27 May, 2010 [facility] [place] [facility] [address] [id number] [place] [address] 21 May, 2010 [facility] [place] [facility] [address] [id number] [place] [address] 13 May, 2010 [facility] [place] [facility] [address] [id number] [place] [address] 13 May, 2010 [facility] [place] [facility] [address] [id number] [place] [address] 10 May, 2010 [facility] [place] [facility] [address] [id number] [place] [address] 06 May, 2010 [facility] [place] [facility] [address] [id number] [place] [address] 29 Apr, 2010 [facility] [place] [facility] [address] [id number] [place] [address] 26 Apr, 2010 [facility] [place] [facility] [address] [id number] [place] [address] 19 Apr, 2010 [facility] [place] [facility] [address] [id number], [place] [address] 18 Apr, 2010 [facility] [place] [facility] [address] [id number], [place] [address] 15 Apr, 2010 [facility] [place] [facility] [address] [id number] [place] [address] 12 Apr, 2010 [facility] [place] [facility] [address] [id number], [place] [address] 12 Apr, 2010 [facility] [place] [facility] [address] [id number], [place] [address] 05 Apr, 2010 [facility] [place] [facility] [address] [id number], [place] [address] Apr, [facility] [address] [id number], [place] [address] Apr, [facility] [address] [id number], [place] [address] Mar, [facility] [id number], [place] [address] Mar, [facility] [id number], [place] [address] Mar, [facility] [id number] [place] [address] Mar, [facility] [id number] [address] Mar, [facility] [id number] [address] Dec, [facility] [address] [id number], [place] [address] Nov, IMMUNIZATIONS No Known Immunizations SOCIAL HISTORY Never Assessed REASON FOR VISIT Refill request PLAN OF CARE VITAL SIGNS MEDICATIONS Medication Instructions Dosage Frequency Start Date End Date Duration Status Clorazepate Dipotassium 3.75 MG Orally Twice a day 1` tablets 12h 28 Active RESULTS No Results [...] [facility] 12/2016 Hospitalization History [facility] 08/2017
--- OUTSIDE RECORDS SUMMARY | 2018-02-04 13:20 | XMS REPORT ---
Author Author NAHOMY BETH Organization [facility] [place] Address [address] [place] [address] Care Team Providers Care [employer] Name Role Phone NAHOMY BETH Unavailable PROBLEMS Type Condition ICD9-CM Code XRN37-ZP Code Onset Dates Condition Status SNOMED Code Problem History of colon polyps Z86.010 Active 830267216 Problem Factitious disorder imposed on self, recurrent episode F68.10 Active 79920902 Problem Anemia, unspecified type D64.9 Active 007570673 Problem Allergic state, subsequent encounter T78.40XD Active 329326063 Problem Unspecified psychosis not due to a substance or known physiological condition F29 Active 16247858 Problem Age-related osteoporosis without current pathological fracture M81.0 Active 19104839 Problem Personality disorder F60.9 Active 95536179 Problem Iron deficiency anemia, unspecified iron deficiency anemia type D50.9 Active 55483016 Problem Anxiety F41.9 Active 85296000 Problem History of CVA with residual deficit I69.30 Active 949611323 Problem Insomnia, unspecified type G47.00 Active 844008942 Problem Perennial allergic rhinitis, unspecified allergic rhinitis trigger J30.89 Active 283402160 Problem Seizure disorder G40.909 Active 888563469 Problem Chronic kidney disease, unspecified stage N18.9 Active 576130091 Problem Back pain M54.9 Active 859935415 Problem Gastroesophageal reflux disease without esophagitis K21.9 Active 391349071 ALLERGIES No Information ENCOUNTERS Encounter Location Date Diagnosis [facility] [place] [address] [facility] [id number] [address] Dec, [facility] [place] [address] [id number] [address] 8693 Nov, [facility] [place] [address] [id number] [address] 6704 Nov, [place] [id number] [place] [address] 98618- 4821 October, [facility] [place] [id number] [place] [address] 72937- 1315 October, Seizure disorder G40.909 ; Back pain M54.9 and Allergic state, subsequent encounter T78.40XD [facility] [place] [id number] [place] [address] 86911- 5828 October, [facility] [place] [id number] [place] [address] 35982- 5131 Sep, Back pain M54.9 [facility] [place] [id number] [place] [address] 06949- 0112 Sep, Unspecified psychosis not due to a substance or known physiological condition F29 ; Personality disorder F60.9 and Factitious disorder imposed on self, recurrent episode F68.10 [facility] [place] [id number] [place] [address] 86423- 4080 Sep, [facility] [place] [id number] [place] [address] 18633- 2585 Sep, [facility] [place] [id number] [place] [address] 12256- 1758 Sep, [facility] [place] [id number] [place] [address] 23526- 1663 Sep, [facility] [place] [id number] [place] [address] 87609- 7763 Aug, [facility] [place] [id number] [place] [address] 41202- 0796 Aug, Back pain M54.9 [facility] [place] [id number] [place] [address] 39294- 6091 Aug, Factitious disorder imposed on self, recurrent episode F68.10 ; Personality disorder F60.9 ; Insomnia, unspecified type G47.00 and Anxiety F41.9 [facility] [place] [address] [id number] [address] 7536 Aug, Back pain M54.9 ; Iron deficiency anemia, unspecified iron deficiency anemia type D50.9 ; Chronic kidney disease, unspecified stage N18.9 and Breast cancer screening Z12.31 [facility] [address] [id number] [id number] Jul, Back pain M54.9 [facility] [id number] [place] [id number] Jul, [facility] [id number] [place] [id number] Jul, [facility] [id number] [place] [id number] Jun, Back pain M54.9 [facility] [id number] [place] [id number] Jun, [facility] [address] [id number] [id number] Jun, Back pain M54.9 [facility] [place] [address] [id number] [address]- 2251 Jun, Back pain M54.9 ; Seizure disorder G40.909 and Age-related osteoporosis without current pathological fracture M81.0 [facility] [address] [id number] [place] [id number] May, [facility] [place] [address] [id number] [address] 8940 May, Back pain M54.9 [facility] [place] [address] [id number] [address]- 6655 Apr, Back pain M54.9 ; Encounter for immunization Z23 ; Gastroesophageal reflux disease without esophagitis K21.9 ; Age-related osteoporosis without current pathological fracture M81.0 and Chronic pruritus L29.9 [facility] [place] [address] [id number] [address]12 Apr, History of CVA with residual deficit I69.30 [facility] [place] [address] [address] 5002 16 Apr, 2017 Factitious disorder imposed on self, recurrent episode F68.10 and Personality disorder F60.9 [facility] [address] [id number] [id number] 08 Apr, 2017 Back pain M54.9 [facility] [place] [id number] [place] [address] 26947- 9463 Mar, Factitious disorder imposed on self, recurrent episode F68.10 [facility] [place] [id number] [place] [address] 52109- 4586 Mar, [facility] [id number] [place] [address] [id number] Mar, [facility] [id number] [place] [address] [id number] Mar, Back pain M54.9 [facility] [place] [id number] [place] [address] 70991- 9550 Mar, Back pain M54.9 ; Seizure disorder G40.909 and Age-related osteoporosis without current pathological fracture M81.0 [facility] [place] [address] [place] [address] 41240- 6877 Feb, History of CVA with residual deficit I69.30 [facility] [place] [address] [id number] [address]- 0533 Feb, Factitious disorder imposed on self, recurrent episode F68.10 and Personality disorder F60.9 [facility] [place] [address] [place] [address] 50999- 8893 15 Feb, 2017 Back pain M54.9 [facility] [place] [address] [address]- 8789 Feb, [facility] [place] [id number] [place] [address] 95028- 7745 Jan, [facility] [address] [place] [id number] Jan, Age- related osteoporosis without current pathological fracture M81.0 and Allergic state, subsequent encounter T78.40XD [facility] [place] [address]005[address] [address]- 3266 Jan, Factitious disorder imposed on self, recurrent episode F68.10 and Personality disorder F60.9 [facility] [place] [id number] [place] [address] 79348- 1140 Dec, Back pain M54.9 [facility] [place] [id number] [place] [address] 02877- 7189 Dec, Personality disorder F60.9 and Factitious disorder imposed on self, recurrent episode F68.10 [facility] [address] [id number] [address] Dec, Back pain M54.9 [facility] [id number] [place] [address] [id number] Dec, [facility] [id number] [place] [address] [id number] Dec, [facility] [place] [id number] [place] [address] 45930- 3338 Dec, [facility] [place] [address]005[address] [address]- 3488 Nov, [facility] [place] [id number] [place] [address] 80854- 3101 Nov, Back pain M54.9 ; Anemia, unspecified type D64.9 and History of colon polyps Z86.010 [facility] [place] [address] [address]- 0394 Nov, Back pain M54.9 [facility] [id number] [place] [address] [id number] October, Back pain M54.9 [facility] [address] [place] [address] October, Back pain M54.9 and Gastroesophageal reflux disease without esophagitis K21.9 [facility] [id number] [address] Sep, [facility] [place] [address]005[address] [address]- 6087 Sep, [facility] [place] [id number] [place] [address] 08094- 5633 Sep, [facility] [place] [id number] [place] [address] 75951- 1045 Sep, [facility] [place] [id number] [place] [address] 83534- 6526 Sep, [facility] [place] [id number] [place] [address] 68569- 0609 Sep, Seizure disorder G40.909 [facility] [place] [id number] [place] [address] 48206- 3005 Sep, Back pain M54.9 [facility] [place] [address] [address]- 7510 Sep, [facility] [place] [id number] [place] [address] 15287- 0287 Aug, Back pain M54.9 [facility] [place] [address] [address]- 2717 Aug, Seizure disorder G40.909 [facility] [id number] [place] [id number] Aug, [facility] [id number] [place] [id number] 16 Aug, 2016 Back pain M54.9 [facility] [address] [id number] [address] Aug, Back pain M54.9 [facility] [id number] [place] [address] Aug, Back pain M54.9 [facility] [address] [place] [id number] Jul, Weakness R53.1 [facility] [place] [id number] [place] [address] 35365- 5079 Jul, Seizure disorder G40.909 [facility] [place] [id number] [place] [address] 44482- 4518 Jul, [facility] [place] [id number] [place] [address] 16855- 5354 Jul, Breast cancer screening Z12.39 [place] [address] 55502- 0763 Jul, [facility] [place] [id number] [place] [address] 83800- 5409 Jul, [facility] [place] [id number] [place] [address] 19230- 6469 Jul, [facility] [place] [id number] [place] [address] 16446- 0990 Jul, Seizure disorder G40.909 ; Fatigue, unspecified type R53.83 ; Perennial allergic rhinitis, unspecified allergic rhinitis trigger J30.89 and Chronic kidney disease, unspecified stage N18.9 [facility] [place] [id number] [place] [address] 58617- 7635 Jul, [facility] [place] [id number] [place] [address] 91751- 4575 Jul, Seizure disorder G40.909 [facility] [place] [id number] [place] [address] 44096- 3100 Jun, [facility] [place] [id number] [place] [address] 91053- 7701 Jun, [facility] [address] [place] [id number] Jun, Perennial allergic rhinitis, unspecified allergic rhinitis trigger J30.89 [facility] [id number] [place] [address] [id number] Jun, [facility] [place] [id number] [place] [address] 52999428- 1845 Jun, Seizure disorder G40.909 [facility] [id number] [place] [address] [id number] Jun, [facility] [id number] [place] [address] [id number] May, [facility] [place] [id number] [place] [address] 81304- 3484 May, [facility] [place] [id number] [place] [address] 71099- 0111 May, [facility] [place] [id number] [place] [address] 20914- 1737 May, [facility] [place] [id number] [place] [address] 13728- 7711 May, History of CVA with residual deficit I69.30 [facility] [place] [address] [place] [address] 79390- 5490 May, [facility] [place] [id number] [place] [address] 76550- 6875 May, [facility] [place] [id number] [place] [address] 52211- 6441 May, [facility] [place] [id number] [place] [address] 44142- 9589 May, Seizure disorder G40.909 [facility] [place] [id number] [place] [address] 75513- 4140 May, [facility] [address] [address] May, Back pain M54.9 and Seizure disorder G40.909 [facility] [place] [address] [place] [address] 14085- 1721 Apr, [facility] [place] [address] [id number] [address]- 5511 Apr, Back pain M54.9 [facility] [place] [address] [id number] [address]- 8675 Mar, [facility] [address] [place] [address] Mar, Insomnia, unspecified type G47.00 [facility] [place] [address] [facility] [id number] [address]- 1996 Mar, [facility] [place] [id number] [place] [address] 95876- 3806 Feb, [facility] [place] [id number] [place] [address] 27099- 6982 Feb, [facility] [place] [id number] [place] [address] 63509- 2908 Feb, [facility] [place] [address] [address]- 0659 Jan, [facility] [place] [id number] [place] [address] 88795- 2642 Jan, [facility] [address] [place] [address] Jan, Seizure disorder G40.909 and Back pain M54.9 [facility] [place] [address] [address]- 7732 Dec, [facility] [place] [address] [facility] [id number] [address]- 9641 Dec, [facility] [place] [address] [address]- 5356 Dec, [facility] [place] [address] [id number] [address]- 5399 Nov, [facility] [place] [address] [address]- 5039 Nov, [facility] [place] [id number] [place] [address] 99218- 3460 Nov, Back pain M54.9 [facility] [place] [id number] [place] [address] 95661- 6786 October, [facility] [place] [id number] [place] [address] 81059- 5476 October, Back pain M54.9 [facility] [place] [id number] [place] [address] 09319 2546 October, Seizure disorder G40.909 and B12 deficiency E53.8 [facility] [place] [id number] [place] [address] 28834- 3266 Sep, History of CVA with residual deficit I69.30 [facility] [place] [id number] [place] [address] 88348- 4669 Sep, [facility] [place] [id number] [place] [address] 90845- 5135 Sep, [facility] [place] [id number] [place] [address] 77811- 3305 Sep, Back pain M54.9 [facility] [place] [id number] [place] [address] 27382- 3106 Sep, Seizure disorder G40.909 [facility] [place] [id number] [place] [address] 74863 2546 Aug, Back pain M54.9 [facility] [place] [address] [place] [address] 16915- 3096 Aug, Seizure disorder G40.909 [facility] [place] [id number] [place] [address] 49672 2546 16 Aug, 2015 Back pain M54.9 [facility] [place] [id number] [place] [address] 19656 2546 14 Aug, 2015 Heart failure, unspecified I50.9 [facility] [place] [id number] [place] [address] 51051- 2639 14 Aug, 2015 Medication monitoring encounter Z51.81 [facility] [place] [address] 82614- 3415 15 Jul, 2015 [facility] [place] [address] 06998- 4479 09 Jul, 2015 Seizure disorder G40.909 [facility] [place] [address] 56800- 5552 05 Jul, 2015 Back pain M54.9 [facility] [place] [address] 36277- 9864 Jun, [facility] [place] [address] 58447- 2951 Jun, [facility] [place] [address] 65869- 8483 Jun, Mental status change R41.82 ; History of CVA with residual deficit I69.30 ; Back pain M54.9 and Seizure disorder G40.909 [facility] [place] [id number] [place] [address] 66767- 3865 Jun, [facility] [place] [id number] [place] [address] 52182- 6621 May, [facility] [place] [address] 82046- 3055 Apr, [facility] [place] [id number] [place] [address] 61345- 9842 Apr, Medication monitoring encounter Z51.81 [facility] [place] [address] 99806- 2849 Mar, Vomiting R11.10 [facility] [place] [address] 01713- 0069 Mar, [facility] [place] [address] [place] [address] 2546 Feb, [facility] [address] [id number] [place] [address]- 5157 Feb, UTI (urinary tract infection) 599.0 [facility] [address] [id number] [place] [address]- 9996 Jan, [facility] [address] [id number] [place] [address] Jan, [facility] [address] [id number] [place] [address] Jan, [facility] [address] [id number] [place] [address] Dec, [facility] [address] [id number] [place] [address] Dec, [facility] [address] [id number] [place] [address] Dec, [facility] [address] [id number] [place] [address] Dec, [facility] [address] [id number] [place] [address] Nov, UNKNOWN Nov, [facility] [address] [id number] [place] [address] October, [facility] [address] [id number] [place] [address] Sep, [facility] [place] [facility] [address] [id number] [place] [address] Sep, [facility] [place] [facility] [address] [id number] [place] [address] Aug, [facility] [place] [facility] [address] [id number] [place] [address] Aug, [facility] [place] [facility] [address] [id number] [place] [address] Jul, [facility] [place] [facility] [address] [id number] [place] [address] Jul, [facility] [place] [facility] [address] [id number] [place] [address] Jul, [facility] [place] [facility] [address] [id number] [place] [address] Jul, [facility] [place] [facility] [address] [id number] [place] [address] Jul, [facility] [place] [facility] [address] [id number] [place] [address] Jun, [facility] [place] [facility] [address] [id number] [place] [address] Jun, [facility] [place] [facility] [address] [id number] [place] [address] Jun, [facility] [place] [facility] [address] [id number] [place] [address] Jun, [facility] [place] [facility] [address] [id number] [place] [address] Jun, [facility] [place] [facility] [address] [id number] [place] [address] Jun, [facility] [place] [facility] [address] [id number] [place] [address] Jun, [facility] [place] [facility] [address] [id number] [address] Jun, [facility] [place] [facility] [address] [id number] [place] [address] Jun, [facility] [place] [facility] [address] [id number] [place] [address] Jun, [facility] [place] [facility] [address] [id number] [place] [address] Jun, [facility] [place] [facility] [address] [id number] [place] [address] Jun, [facility] [place] [facility] [address] [id number] [place] [address] Jun, [facility] [place] [facility] [address] [id number] [place] [address] Jun, [facility] [place] [facility] [address] [id number] [place] [address] Jun, [facility] [place] [facility] [address] [id number] [place] [address] Jun, [facility] [place] [facility] [address] [id number] [place] [address] Jun, [facility] [facility] [address] [id number] [place] [address] Jun, [facility] [place] [facility] [address] [id number] [place] [address] 9566 May, [facility] [place] [facility] [address] [id number] [place] [address]- 7456 30 May, 2014 [facility] [place] [facility] [address] [id number] [place] [address]- 7448 30 May, 2014 [facility] [place] [facility] [address] [id number] [place] [address]- 4014 30 May, 2014 [facility] [place] [facility] [address] [id number] [place] [address]- 5870 19 May, 2014 [facility] [place] [facility] [address] [id number] [place] [address] 6830 16 May, 2014 [facility] [place] [facility] [address] [id number] [place] [address]- 4305 16 May, 2014 [facility] [place] [facility] [address] [id number] [place] [address]- 3420 15 May, 2014 [facility] [place] [facility] [address] [id number] [place] [address] May, [facility] [address] [facility] [id number] May, [facility] [place] [facility] [address] [id number] [place] [address]- 2383 May, [facility] [place] [facility] [address] [id number] [place] [address]- 9490 May, [facility] [place] [facility] [address] [id number] [place] [address]- 9512 May, [facility] [place] [facility] [address] [id number] [place] [address]- 7351 Apr, [facility] [place] [facility] [address] [id number] [place] [address]- 8328 Apr, [facility] [place] [facility] [address] [id number] [place] [address]- 9116 Apr, [facility] [place] [facility] [address] [id number] [place] [address]- 7058 Apr, [facility] [place] [facility] [address] [id number] [place] [address]- 1200 Apr, [facility] [place] [address] [id number] [place] [address] 8[address] Apr, [facility] [address] [id number] [place] [address] 9205 Mar, [facility] [address] [id number] [place] [address] 9157 Mar, [facility] [place] [address] [id number] [place] [address]- 2208 Mar, [facility] [place] [facility] [address] [id number] [place] [address]- 9710 Mar, [facility] [place] [facility] [address] [id number] [place] [address] 0137 Mar, [facility] [address] [id number] [place] [address] 4461 Mar, [facility] [address] [id number] [place] [address]- 6203 24 Feb, 2014 [facility] [address] [id number] [place] [address]- 1533 24 Feb, 2014 [facility] [address] [id number] [place] [address] Feb, [facility] [address] [id number] [place] [address]- 7266 Feb, [facility] [place] [facility] [address] [id number] [place] [address]- 9228 Feb, [facility] [address] [id number] [place] [address]- 6052 Feb, [facility] [address] [id number] [place] [address] 2943 Feb, [facility] [address] [id number] [place] [address]- 8889 Feb, [facility] [address] [id number] [place] [address]- 5485 Feb, [facility] [address] [id number] [place] [address]- 8872 Feb, [facility] [address] [place] [id number] Feb, [facility] [address] [id number] [place] [address] 67[address] Feb, [facility] [address] [id number] [place] [address]- 2233 Jan, [facility] [address] [id number] [place] [address]- 5996 Jan, [facility] [address] [id number] [place] [address]- 8099 Dec, [facility] [address] [id number] [place] [address]- 5678 Dec, 2013 [facility] [address] [id number] [place] [address]- 0958 Dec, 2013 [facility] [address] [id number] [place] [address]- 8288 Dec, 2013 [facility] [address] [id number] [place] [address]- 0004 Dec, 2013 [facility] [address] [id number] [place] [address]- 8775 Dec, 2013 [facility] [address] [id number] [place] [address]- 6619 Dec, [facility] [address] [id number] [place] [address]- 7496 Dec, [facility] [address] [id number] [place] [address]- 9524 Dec, [facility] [address] [id number] [place] [address]- 3264 Dec, [facility] [address] [id number] [place] [address]- 8470 Nov, [facility] [address] [id number] [place] [address]- 4844 Nov, [facility] [address] [id number] [place] [address]- 6051 Nov, [facility] [address] [id number] [place] [address]- 4368 Nov, [facility] [address] [id number] [place] [address]- 7265 Nov, [facility] [address] [id number] [place] [address]- 6043 Nov, [facility] [address] [id number] [place] [address]- 7430 Nov, [facility] [address] [id number] [place] [address]- 5468 Nov, [facility] [address] [id number] [place] [address]- 9494 Nov, [facility] [address] [id number] [place] [address]- 1466 Nov, [facility] [address] [id number] [place] [address]- 5516 Nov, [facility] [address] [id number] [place] [address]- 6502 Nov, [facility] [address] [id number] [place] [address]- 8433 Nov, [facility] [address] [id number] [place] [address]- 2364 Nov, [facility] [address] [id number] [place] [address]- 4816 October, [facility] [address] [id number] [place] [address]- 7742 October, [facility] [address] [id number] [place] [address]- 3698 October, [facility] [address] [id number] [place] [address]- 3505 October, [facility] [address] [id number] [place] [address]- 0959 October, [facility] [address] [id number] [place] [address]- 8935 October, [facility] [address] [id number] [place] [address]- 1289 October, [facility] [address] [id number] [place] [address] October, [facility] [address] [id number] [place] [address]- 4892 October, [facility] [address] [id number] [place] [address]- 9922 October, [facility] [address] [id number] [place] [address]- 8412 Sep, [facility] [address] [id number] [place] [address]- 3242 Sep, [facility] [address] [id number] [place] [address]- 6699 Sep, [facility] [address] [id number] [place] [address]- 8199 Sep, [facility] [address] [id number] [place] [address]- 2096 Sep, [facility] [address] [id number] [place] [address]- 3312 Sep, [facility] [address] [id number] [place] [address]- 4900 Sep, [facility] [address] [id number] [place] [address]- 3924 Sep, [facility] [address] [id number] [place] [address]- 4775 Sep, [facility] [address] [id number] [place] [address]- 1539 Sep, [facility] [address] [id number] [place] [address]- 4552 Aug, [facility] [address] [id number] [place] [address]- 9473 Aug, [facility] [address] [id number] [place] [address]- 8822 Aug, [facility] [address] [id number] [place] [address]- 1539 Aug, [facility] [address] [id number] [place] [address]- 8079 06 Aug, 2013 [facility] [address] [id number] [place] [address]- 6620 Aug, [facility] [address] [id number] [place] [address]- 0754 Aug, [facility] [address] [id number] [place] [address]- 5297 Aug, [facility] [address] [id number] [place] [address]- 3421 Aug, [facility] [address] [id number] [place] [address]- 4669 Jul, [facility] [address] [facility] [id number] [place] [address]- 4807 Jul, [facility] [address] [facility] [id number] [place] [address]- 1432 Jul, [facility] [address] [id number] [place] [address]- 0035 Jul, [facility] [address] [facility] [id number] [place] [address]- 8425 Jul, [facility] [address] [facility] [id number] [place] [address]- 5463 Jul, [facility] [address] [facility] [id number] [place] [address]- 5862 Jul, [facility] [address] [id number] [place] [address]- 1173 Jul, [facility] [address] [id number] [place] [address]- 0109 Jul, [facility] [address] [facility] [id number] [place] [address]- 5186 Jul, [facility] [address] [facility] [id number] [place] [address]- 8638 06 Jul, 2013 [facility] [address] [id number] [place] [address]- 0997 06 Jul, 2013 [facility] [address] [id number] [place] [address]6 Jul, [facility] [address] [id number] [place] [address]- 8646 Jul, [facility] [address] [id number] [place] [address]- 8888 Jul, [facility] [address] [id number] [place] [address]- 4501 Jul, [facility] [address] [id number] [place] [address]- 3202 Jun, [facility] [address] [id number] [place] [address]- 6712 Jun, [facility] [address] [id number] [place] [address]- 3221 Jun, [facility] [address] [id number] [place] [address]- 8729 Jun, [facility] [address] [id number] [place] [address]- 9078 Jun, [facility] [address] [id number] [place] [address]- 0161 Jun, [facility] [address] [id number] [place] [address]- 5365 May, [facility] [address] [id number] [place] [address]- 4588 May, [facility] [address] [id number] [place] [address]- 7431 May, [facility] [address] [id number] [place] [address]- 0125 May, [facility] [address] [id number] [place] [address]- 0151 Apr, [facility] [address] [id number] [place] [address]- 2372 Apr, [facility] [address] [id number] [place] [address]- 0047 Apr, [facility] [address] [id number] [place] [address]- 4985 Apr, [facility] [address] [id number] [place] [address]- 9765 Apr, [facility] [address] [id number] [place] [address]- 4605 Apr, [facility] [address] [id number] [place] [address]- 9190 Apr, [facility] [address] [id number] [place] [address]- 5165 Apr, [facility] [address] [id number] [place] [address]- 8572 Apr, [facility] [address] [id number] [place] [address]- 5300 Apr, [facility] [address] [id number] [place] [address]- 4016 Apr, [facility] [address] [id number] [place] [address]- 8049 Apr, [facility] [address] [id number] [place] [address]- 3825 Mar, [facility] [address] [id number] [place] [address]- 3053 28 Mar, 2013 [facility] [address] [id number] [place] [address]- 8044 16 Mar, 2013 [facility] [address] [id number] [place] [address]- 6972 16 Mar, 2013 [facility] [address] [id number] [place] [address]- 3250 15 Mar, 2013 [facility] [address] [id number] [place] [address]- 9461 15 Mar, 2013 [facility] [facility] [address] [id number] [place] [address]- 7796 27 Feb, 2013 [facility] [address] [id number] [place] [address] 2549 25 Feb, 2013 [facility] [place] [facility] [address] [id number] [place] [address]- 6259 25 Feb, 2013 [facility] [address] [id number] [place] [address]- 4974 23 Feb, 2013 [facility] [address] [id number] [place] [address]- 4628 17 Feb, 2013 [facility] [place] [facility] [address] [id number] [place] [address]- 7815 10 Feb, 2013 [facility] [place] [facility] [address] [id number] [place] [address]- 7550 04 Feb, 2013 [facility] [place] [facility] [address] [id number] [place] [address]- 0237 30 Jan, 2013 [facility] [place] [facility] [address] [id number] [place] [address]- 7462 Jan, [facility] [place] [facility] [address] [id number] [place] [address]- 3962 Jan, [facility] [place] [facility] [address] [id number] [place] [address]- 6328 14 Jan, 2013 [facility] [place] [facility] [address] [id number] [place] [address]- 4550 Jan, [facility] [place] [facility] [address] [id number] [place] [address]- 3572 Jan, [facility] [place] [facility] [address] [id number] [place] [address]- 2546 Jan, [facility] [address] [id number] [place] [address]- 4427 Dec, [facility] [address] [id number] [place] [address]- 2546 Dec, [facility] [address] [id number] [place] [address]- 9196 Dec, [facility] [address] [id number] [place] [address]- 2547 Dec, [facility] [address] [id number] [place] [address]- 2776 Dec, [facility] [address] [id number] [place] [address]- 9506 Dec, [facility] [address] [id number] [place] [address]- 9106 Nov, [facility] [address] [id number] [place] [address]- 0577 Nov, [facility] [address] [id number] [place] [address]- 6046 Nov, [facility] [address] [id number] [place] [address]- 2464 Nov, [facility] [facility] [address] [id number] [place] [address]- 0906 October, [facility] [address] [id number] [place] [address]- 7806 October, [facility] [place] [facility] [address] [id number] [place] [address]- 2546 October, [facility] [place] [facility] [address] [id number] [place] [address]- 2546 October, [facility] [place] [facility] [address] [id number] [place] [address]- 5216 Sep, [facility] [address] [id number] [place] [address]- 2457 Sep, [facility] [place] [facility] [address] [id number] [place] [address]- 7658 16 Sep, 2012 [facility] [place] [facility] [address] [id number] [place] [address]- 7104 Sep, [facility] [place] [facility] [address] [id number] [place] [address]- 2600 Sep, [facility] [place] [facility] [address] [id number] [place] [address]- 8987 Sep, [facility] [place] [facility] [address] [id number] [place] [address]- 6151 Sep, [facility] [place] [facility] [address] [id number] [place] [address]- 3024 Sep, [facility] [place] [facility] [address] [id number] [place] [address]- 7122 Aug, [facility] [place] [facility] [address] [id number] [place] [address]- 0091 Aug, [facility] [place] [facility] [address] [id number] [place] [address]- 8555 Aug, [facility] [place] [facility] [address] [id number] [place] [address]- 4474 18 Jul, 2012 [facility] [place] [facility] [address] [id number] [place] [address]- 3413 08 Jul, 2012 [facility] [place] [facility] [address] [id number] [place] [address]- 2706 07 Jul, 2012 [facility] [place] [facility] [address] [id number] [place] [address]- 5927 06 Jul, 2012 [facility] [place] [facility] [address] [id number] [place] [address]- 8204 05 Jul, 2012 [facility] [place] [facility] [address] [id number] [place] [address]- 5047 Jun, [facility] [address] [id number] [place] [address]- 2395 Jun, [facility] [address] [id number] [place] [address]- 0791 Jun, [facility] [address] [id number] [place] [address]- 2380 May, [facility] [address] [id number] [place] [address]- 2405 May, [facility] [address] [id number] [place] [address]- 2824 May, [facility] [address] [id number] [place] [address]- 5758 May, [facility] [address] [id number] [place] [address] May, [facility] [address] [id number] [place] [address] May, [facility] [address] [id number] [place] [address] May, [facility] [address] [id number] [place] [address] Apr, [facility] [address] [id number] [place] [address] Apr, [facility] [address] [id number] [place] [address] Apr, [facility] [place] [facility] [address] [id number] [place] [address] Apr, [facility] [place] [facility] [address] [id number] [place] [address] Apr, [facility] [address] [id number] [place] [address] Apr, [facility] [place] [facility] [address] [id number] [place] [address] Apr, [facility] [place] [facility] [address] [id number] [place] [address] Apr, [facility] [place] [facility] [address] [id number] [place] [address] Apr, [facility] [place] [facility] [address] [id number] [place] [address] Apr, [facility] [place] [facility] [address] [id number] [place] [address] Apr, [facility] [place] [facility] [address] [id number] [place] [address] Mar, [facility] [place] [facility] [address] [facility] [id number] [place] [address] Mar, [facility] [place] [facility] [address] [id number] [place] [address] Mar, [facility] [place] [facility] [address] [id number] [place] [address] Mar, [facility] [place] [facility] [address] [facility] [id number] [place] [address] Mar, [facility] [place] [facility] [address] [facility] [id number] [place] [address] Mar, [facility] [place] [facility] [address] [id number] [place] [address] Mar, [facility] [place] [facility] [address] [id number] [place] [address] Mar, [facility] [place] [facility] [address] [id number] [place] [address] Mar, [facility] [place] [facility] [address] [facility] [id number] [place] [address] Mar, [facility] [place] [facility] [address] [id number] [place] [address] 04 Mar, 2012 [facility] [place] [facility] [address] [id number] [place] [address] 2011 [facility] [place] [facility] [address] [id number] [place] [address] 27 Feb, 2011 [facility] [place] [facility] [address] [id number] [place] [address] 27 Feb, 2011 [facility] [place] [facility] [address] [id number] [place] [address] 26 Feb, 2011 [facility] [place] [facility] [address] [id number] [place] [address] 24 Feb, 2012 [facility] [place] [facility] [address] [id number] [place] [address] 19 Feb, 2012 [facility] [place] [facility] [address] [id number] [place] [address] 18 Feb, 2012 [facility] [place] [facility] [address] [id number] [place] [address] 18 Feb, 2012 [facility] [place] [facility] [address] [id number] [place] [address] 18 Feb, 2012 [facility] [place] [facility] [address] [id number] [place] [address] Jan, [facility] [place] [facility] [address] [id number] [place] [address] Jan, [facility] [place] [facility] [address] [id number] [place] [address]- [address] Jan, [facility] [place] [facility] [address] [id number] [place] [address] Jan, [facility] [place] [facility] [address] [facility] [id number] [place] [address]- [address] Dec, [facility] [place] [facility] [address] [facility] [id number] [place] [address] Dec, [facility] [place] [facility] [address] [id number] [place] [address]- [address] Dec, [facility] [place] [facility] [address] [id number] [place] [address] Dec, [facility] [place] [facility] [address] [id number] [place] [address] Dec, [facility] [place] [facility] [address] [id number] [place] [address]- [address] Dec, [facility] [place] [facility] [address] [id number] [place] [address]- [address]96 Dec, [facility] [place] [facility] [address] [id number] [place] [address]- [address] Dec, [facility] [place] [facility] [address] [id number] [place] [address]- [address]228 Dec, [facility] [place] [facility] [address] [id number] [place] [address]- [address] Dec, [facility] [place] [facility] [address] [id number] [place] [address]- [address] Dec, [facility] [place] [facility] [address] [id number] [place] [address]- 14[address] Dec, [facility] [place] [facility] [address] [id number] [place] [address]- 9524 Dec, [facility] [place] [facility] [address] [id number] [place] [address]- [address]773 Dec, [facility] [place] [facility] [address] [id number] [place] [address]- [address] Nov, [facility] [place] [facility] [address] [id number] [place] [address]- 4710 Nov, [facility] [place] [facility] [address] [id number] [place] [address]- 1733 Nov, [facility] [place] [facility] [address] [id number] [place] [address]- 5636 Nov, [facility] [address] [id number] [place] [address]- [address] Nov, [facility] [place] [facility] [address] [id number] [place] [address]- [address] Nov, [facility] [place] [facility] [address] [id number] [place] [address]- [address]143 October, [facility] [place] [facility] [address] [id number] [place] [address]- 0945 October, [facility] [place] [facility] [address] [id number] [place] [address]- 8627 October, [facility] [place] [facility] [address] [id number] [place] [address]- 8895 October, [facility] [place] [facility] [address] [id number] [place] [address]- [address] Sep, [facility] [place] [facility] [address] [id number] [place] [address]- [address]55 17 Sep, 2011 [facility] [place] [facility] [address] [id number] [place] [address]- [address] 13 Sep, 2011 [facility] [place] [facility] [address] [id number] [place] [address]- 90[address] Sep, [facility] [place] [facility] [address] [id number] [place] [address] Sep, [facility] [place] [facility] [address] [id number] [address] Aug, [facility] [place] [facility] [address] [id number] [place] [address] Aug, [facility] [place] [facility] [address] [id number] [place] [address] Aug, [facility] [place] [facility] [address] [id number] [place] [address] Aug, [facility] [place] [facility] [address] [facility] [id number] [place] [address] 13 Aug, 2011 [facility] [address] [facility] [id number] [place] [address] Aug, [facility] [address] [facility] [id number] [place] [address] Aug, [facility] [address] [facility] [id number] [place] [address] 16 Jul, 2011 [facility] [address] [facility] [id number] [place] [address] Jul, [facility] [address] [facility] [id number] [place] [address] Jul[facility] [address] [id number] [place] [address] Jul, [facility] [id number] [address] Jun, [facility] [address] [place] [id number] Jun, [facility] [id number] [address] Jun, [facility] [id number] [address] Jun, [facility] [address] [id number] [address] Jun, [facility] [address] [facility] [id number] [place] [address] Jun, [facility] [address] [id number] [address] Jun, [facility] [address] [facility] [id number] [place] [address] Jun, [facility] [address] [id number] [address] May, [facility] [place] [facility] [address] [id number] [place] [address] 29 May, 2011 [facility] [place] [facility] [address] [id number] [place] [address] May, [facility] [place] [facility] [address] [id number] [place] [address] May, [facility] [place] [facility] [address] [id number] [place] [address] May, [facility] [place] [facility] [address] [id number] [place] [address] May, [facility] [place] [facility] [address] [id number] [place] [address] May, [facility] [place] [facility] [address] [id number] [place] [address] Apr, [facility] [place] [facility] [address] [id number] [place] [address] Apr, [facility] [place] [facility] [address] [id number] [place] [address] Apr, [facility] [place] [facility] [address] [id number] [place] [address] Mar, [facility] [place] [facility] [address] [id number] [place] [address] 20 Mar, 2011 [facility] [place] [facility] [address] [id number] [place] [address] 14 Mar, 2011 [facility] [place] [facility] [address] [id number] [place] [address] 11 Mar, 2011 [facility] [place] [facility] [address] [id number] [place] [address] 10 Mar, 2011 [facility] [place] [facility] [address] [id number] [place] [address] 10 Mar, 2011 [facility] [place] [facility] [address] [id number] [place] [address]- [address] 10 Mar, 2011 [facility] [place] [facility] [address] [id number] [place] [address]- [address] 11 Jan, 2011 [facility] [place] [facility] [address] [id number] [place] [address]- [address]3 27 May, 2010 [facility] [place] [facility] [address] [id number] [place] [address] 244[address] 21 May, 2010 [facility] [place] [facility] [address] [id number] [place] [address] 13 May, 2010 [facility] [place] [facility] [address] [id number] [place] [address]- 224[address] 13 May, 2010 [facility] [place] [facility] [address] [id number] [place] [address]- [address] 10 May, 2010 [facility] [place] [facility] [address] [id number] [place] [address]- [address] 06 May, 2010 [facility] [place] [facility] [address] [id number] [place] [address] 29 Apr, 2010 [facility] [place] [facility] [address] [id number] [place] [address]- [address] 26 Apr, 2010 [facility] [place] [facility] [address] [id number] [place] [address]- [address] 19 Apr, 2010 [facility] [place] [facility] [address] [id number] [place] [address] 18 Apr, 2010 [facility] [place] [facility] [address] [id number] [place] [address] 15 Apr, 2010 [facility] [place] [facility] [address] [id number] [place] [address]- 3983 12 Apr, 2010 [facility] [place] [facility] [address] [id number] [place] [address]- [address] 12 Apr, 2010 [facility] [place] [facility] [address] [id number] [place] [address] 05 Apr, 2010 [facility] [place] [facility] [address] [id number] [address] Apr, [facility] [place] [id number] [address] Apr, [facility] [place] [address] [id number] [address] Mar, [facility] [place] [id number] [address] Mar, [facility] [place] [id number] [address] Mar, [facility] [place] [id number] [place] [address] Mar, [facility] [place] [id number] [address]- [address] Mar, [facility] [place] [id number] [address] Dec, [facility] [place] [address] [id number] [address] Nov, IMMUNIZATIONS No Known Immunizations SOCIAL HISTORY Never Assessed REASON FOR VISIT Change in Coumadin PLAN OF CARE VITAL SIGNS MEDICATIONS Medication Instructions Dosage Frequency Start Date End Date Duration Status Coumadin 1 MG Orally Once a day 1mg on Sat, , Jennifer, 1.5mg on Satd, sat, Sat, saturday 24h Active RESULTS No Results PROCEDURES No [...] surgery and skin graft, cholecysectomy Hospitalization History [facility] [place] [facility]2016 [facility] 08/2017
--- OUTSIDE RECORDS SUMMARY | 2018-02-04 13:21 | XMS REPORT ---
Author Author NAHOMY BETH Organization [facility] Address [address] [place] [address] Care Team Providers Care Digital Account Coordinator Name Role Phone NAHOMY BETH Unavailable PROBLEMS Type Condition ICD9-CM Code ECK46-HD Code Onset Dates Condition Status SNOMED Code Problem History of colon polyps Z86.010 Active 412618064 Problem Factitious disorder imposed on self, recurrent episode F68.10 Active 49565611 Problem Anemia, unspecified type D64.9 Active 339709145 Problem Allergic state, subsequent encounter T78.40XD Active 995619194 Problem Unspecified psychosis not due to a substance or known physiological condition F29 Active 63980414 Problem Age-related osteoporosis without current pathological fracture M81.0 Active 42092447 Problem Personality disorder F60.9 Active 10334031 Problem Iron deficiency anemia, unspecified iron deficiency anemia type D50.9 Active 53101118 Problem Anxiety F41.9 Active 52540732 Problem History of CVA with residual deficit I69.30 Active 093199311 Problem Insomnia, unspecified type G47.00 Active 778658400 Problem Perennial allergic rhinitis, unspecified allergic rhinitis trigger J30.89 Active 085393863 Problem Seizure disorder G40.909 Active 252840066 Problem Chronic kidney disease, unspecified stage N18.9 Active 871407918 Problem Back pain M54.9 Active 492148570 Problem Gastroesophageal reflux disease without esophagitis K21.9 Active 477619215 ALLERGIES No Information ENCOUNTERS Encounter Location Date Diagnosis [facility] [id number] [address] Jan, [facility] [address] [address] Dec, [facility] [id number] [address] 2017 Dec, [facility] [address] [address] 0018 Dec, [facility] [id number] [place] [address] 45030- 6848 Nov, Unspecified psychosis not due to a substance or known physiological condition F29 ; Personality disorder F60.9 and Factitious disorder imposed on self, recurrent episode F68.10 [facility] [id number] [place] [address] 68280- 1777 Nov, Back pain M54.9 [facility] [id number] [place] [address] 86099- 9130 Nov, Unspecified psychosis not due to a substance or known physiological condition F29 ; Personality disorder F60.9 and Factitious disorder imposed on self, recurrent episode F68.10 [facility] [id number] [place] [address] 14959- 0996 October, [facility] [id number] [place] [address] 72959- 7627 October, [facility] [id number] [place] [address] 61411- 3225 October, Unspecified psychosis not due to a substance or known physiological condition F29 ; Personality disorder F60.9 and Factitious disorder imposed on self, recurrent episode F68.10 [facility] [address] [place] [address] 66373- 3652 October, Back pain M54.9 [facility] [address] [place] [address] 06295- 4401 October, Seizure disorder G40.909 ; Back pain M54.9 and Allergic state, subsequent encounter T78.40XD [facility] [address] [address] October, [facility] [address] [place] [address] 11614- 7449 Sep, Back pain M54.9 [facility] [address] [address] 5338 Sep, Unspecified psychosis not due to a substance or known physiological condition F29 ; Personality disorder F60.9 and Factitious disorder imposed on self, recurrent episode F68.10 [facility] [address] [address] 1368 Sep, [facility] [id number] [place] [address] 48129- 1989 Sep, [facility] [id number] [place] [address] 65358- 2052 Sep, [facility] [id number] [place] [address] 90579- 1130 Sep, [facility] [id number] [place] [address] 11992- 5793 Aug, [facility] [id number] [place] [address] 58925- 9238 Aug, Back pain M54.9 [facility] [id number] [place] [address] 75383- 5551 15 Aug, 2017 Factitious disorder imposed on self, recurrent episode F68.10 ; Personality disorder F60.9 ; Insomnia, unspecified type G47.00 and Anxiety F41.9 [facility] [address] [place] [address] 22411- 5865 Aug, Back pain M54.9 ; Iron deficiency anemia, unspecified iron deficiency anemia type D50.9 ; Chronic kidney disease, unspecified stage N18.9 and Breast cancer screening Z12.31 [facility] [id number] [place] [address] [id number] Jul, Back pain M54.9 [facility] [id number] [place] [address] [id number] Jul, [facility] [id number] [place] [address] [id number] Jul, [facility] [id number] [place] [id number] Jun, Back pain M54.9 [facility] [id number] [place] [id number] Jun, [facility] [id number] [place] [id number] Jun, Back pain M54.9 [facility] [address] [place] [address] [id number]- 8246 Jun, Back pain M54.9 ; Seizure disorder G40.909 and Age-related osteoporosis without current pathological fracture M81.0 [address] [address] [id number] [place] [id number] May, [place] [address] [place] [address] 76408- 9376 May, Back pain M54.9 [place] [id number] [place] [address] 74821- 4627 Apr, Back pain M54.9 ; Encounter for immunization Z23 ; Gastroesophageal reflux disease without esophagitis K21.9 ; Age-related osteoporosis without current pathological fracture M81.0 and Chronic pruritus L29.9 [place] [id number] [address]- 7950 16 Apr, 2017 History of CVA with residual deficit I69.30 [place] [id number] [place] [address] 27786- 6366 Apr, Factitious disorder imposed on self, recurrent episode F68.10 and Personality disorder F60.9 [place] [id number] [place] [address] [id number] 08 Apr, 2017 Back pain M54.9 [facility] [id number] [address]- 7217 Mar, Factitious disorder imposed on self, recurrent episode F68.10 [place] [address] [address]- 5168 Mar, [facility] [id number] [place] [address] [id number] Mar, [facility] [id number] [place] [address] [id number] Mar, Back pain M54.9 [facility] [id number] [place] [address] 94769- 0681 05 Mar, 2017 Back pain M54.9 ; Seizure disorder G40.909 and Age-related osteoporosis without current pathological fracture M81.0 [facility] [id number] [place] [address] 11304- 8070 Feb, History of CVA with residual deficit I69.30 [facility] [id number] [place] [address] 40613- 5761 Feb, Factitious disorder imposed on self, recurrent episode F68.10 and Personality disorder F60.9 [facility] [address] [place] [address] 32278- 1206 Feb, Back pain M54.9 [facility] [address] [place] [address] 28164- 5178 Feb, [facility] [address] [place] [address] 08726- 6443 Jan, [facility] [address] [place] [id number] Jan, Age- related osteoporosis without current pathological fracture M81.0 and Allergic state, subsequent encounter T78.40XD [facility] [address] [place] [address] 41529- 3183 Jan, Factitious disorder imposed on self, recurrent episode F68.10 and Personality disorder F60.9 [facility] [address] [address]- 3245 Dec, Back pain M54.9 [facility] [id number] [address]- 7084 Dec, Personality disorder F60.9 and Factitious disorder imposed on self, recurrent episode F68.10 [facility] [id number] [place] [id number] Dec, Back pain M54.9 [facility] [id number] [id number] Dec, [facility] [id number] [place] [address] [id number] Dec, [facility] [address] [address]- 4033 Dec, [facility] [address] [place] [address] 57432- 1443 Nov, [facility] [address] [address]- 5897 Nov, Back pain M54.9 ; Anemia, unspecified type D64.9 and History of colon polyps Z86.010 [facility] [address] [address]- 8624 Nov, Back pain M54.9 [facility] [id number] [id number] October, Back pain M54.9 [facility] [address] [place] [id number] October, Back pain M54.9 and Gastroesophageal reflux disease without esophagitis K21.9 [facility] [id number] [place] [id number] Sep, [facility] [address] [address]- 4742 Sep, [facility] [address] [address]- 9736 Sep, [facility] [address] [address]- 9448 Sep, [facility] [address] [facility] [id number] [place] [address]- 2778 Sep, [facility] [address] [facility] [id number] [place] [address]- 5335 Sep, Seizure disorder G40.909 [facility] [id number] [address]- 1192 Sep, Back pain M54.9 [facility] [id number] [address]- 0288 Sep, [facility] [address] [facility] [id number] [place] [address]- 6294 Aug, Back pain M54.9 [facility] [id number] [address]- 7756 Aug, Seizure disorder G40.909 [facility] [id number] [id number] 17 Aug, 2016 [facility] [id number] [place] [id number] 16 Aug, 2016 Back pain M54.9 [facility] [id number] [place] [id number] 14 Aug, 2016 Back pain M54.9 [facility] [id number] [place] [id number] 06 Aug, 2016 Back pain M54.9 [facility] [address] [place] [id number] Jul, Weakness R53.1 [facility] [id number] [address]- 5861 Jul, Seizure disorder G40.909 [facility] [address] [address]- 0647 Jul, [facility] [id number] [address]- 5418 Jul, Breast cancer screening Z12.39 [facility] [address] [place] [address] 83056- 2346 Jul, [facility] [id number] [place] [address] 19285- 8455 Jul, [facility] [id number] [place] [address] 01278- 9759 Jul, [facility] [id number] [place] [address] 52740- 3736 Jul, Seizure disorder G40.909 ; Fatigue, unspecified type R53.83 ; Perennial allergic rhinitis, unspecified allergic rhinitis trigger J30.89 and Chronic kidney disease, unspecified stage N18.9 [facility] [id number] [place] [address] 82244- 5763 Jul, [place] [id number] [place] [address] 43321- 1394 Jul, Seizure disorder G40.909 [facility] [id number] [place] [address] 30183- 6691 Jun, [facility] [id number] [place] [address] 68084- 1290 Jun, [address] [id number] Jun, Perennial allergic rhinitis, unspecified allergic rhinitis trigger J30.89 [facility] [id number] [place] [address] [id number] Jun, [facility] [address] [place] [address] 85006- 9550 Jun, Seizure disorder G40.909 [place] [id number] [place] [address] [id number] Jun, [facility] [id number] [place] [address] [id number] May, [facility] [id number] [place] [address] 44103- 0838 May, [facility] [address] [address]- 7411 May, [facility] [id number] [place] [address] 14583- 3198 May, [facility] [address] [place] [address] 62466- 1289 May, History of CVA with residual deficit I69.30 [facility] [id number] [place] [address] 62138- 3719 May, [facility] [id number] [place] [address] 17775- 7104 May, [facility] [id number] [place] [address] 52571- 9017 May, [facility] [id number] [place] [address] 31950- 7696 May, Seizure disorder G40.909 [facility] [address] [place] [address] 64599- 8218 May, [employer] [address] [place] [address] May, Back pain M54.9 and Seizure disorder G40.909 [facility] [address] [place] [address] 26287- 2663 Apr, [facility] [address] [place] [address] 12287- 4800 Apr, Back pain M54.9 [facility] [address] [place] [address] 62798- 7475 Mar, [employer] [address] [place] [address] Mar, Insomnia, unspecified type G47.00 [facility] [address] [place] [address] 03694- 9826 Mar, [facility] [address] [facility] [id number] [place] [address]- 6719 Feb, [facility] [id number] [place] [address] 29774- 7960 Feb, [facility] [address] [facility] [id number] [place] [address]- 1730 Feb, [facility] [address] [place] [address] 20846- 6160 Jan, [facility] [address] [facility] [id number] [place] [address]- 1586 Jan, [facility] [address] [place] [address] Jan, Seizure disorder G40.909 and Back pain M54.9 [facility] [address] [address]- 1552 Dec, [facility] [address] [place] [address] 22128- 9569 Dec, [facility] [id number] [address]- 0114 Dec, [facility] [address] [address]- 2073 Nov, [facility] [address] [address]- 7109 Nov, [facility] [address] [address]- 6385 Nov, Back pain M54.9 [facility] [address] [facility] [id number] [place] [address]- 9054 October, [facility] [address] [address]- 3222 October, Back pain M54.9 [facility] [id number] [address]- 9135 October, Seizure disorder G40.909 and B12 deficiency E53.8 [facility] [id number] [place] [address] 12216- 3421 29 Sep, 2015 History of CVA with residual deficit I69.30 [facility] [id number] [place] [address] 41711- 7606 Sep, [facility] [id number] [place] [address] 09269- 1297 Sep, [facility] [id number] [place] [address] 13611- 9565 Sep, Back pain M54.9 [facility] [address] 55854- 2394 Sep, Seizure disorder G40.909 [facility] [id number] [place] [address] 27116- 5815 Aug, Back pain M54.9 [facility] [id number] [place] [address] 85486- 8160 18 Aug, 2015 Seizure disorder G40.909 [facility] [id number] [place] [address] 07516- 3805 16 Aug, 2015 Back pain M54.9 [facility] [id number] [place] [address] 95064- 0545 14 Aug, 2015 Heart failure, unspecified I50.9 [facility] [id number] [place] [address] 84564- 9377 14 Aug, 2015 Medication monitoring encounter Z51.81 [facility] [id number] [place] [address] 21966- 7466 15 Jul, 2015 [facility] [id number] [place] [address] 41399- 0438 09 Jul, 2015 Seizure disorder G40.909 [facility] [id number] [place] [address] 32749- 6336 05 Jul, 2015 Back pain M54.9 [facility] [id number] [address]- 9698 Jun, [facility] [address] [place] [address] 47787- 5887 Jun, [facility] [address] [address]- 5297 Jun, Mental status change R41.82 ; History of CVA with residual deficit I69.30 ; Back pain M54.9 and Seizure disorder G40.909 [facility] [address] [address]- 9511 Jun, [facility] [address] [place] [address] 87530- 8779 May, [facility] [id number] [place] [address] 44849- 7044 Apr, [facility] [id number] [place] [address]- [address] Apr, Medication monitoring encounter Z51.81 [facility] [id number] [place] [address]31- 9275 Mar, Vomiting R11.10 [facility] [id number] [address] Mar, [facility] [id number] [address] Feb, [facility] [id number] [address] Feb, UTI (urinary tract infection) 599.0 [facility] [id number] [place] [address]32- 9566 Jan, [facility] [id number] [address] Jan, [facility] [id number] [place] [address] [id number]- 6925 Jan, [facility] [place] [facility] [address] [id number] [place] [address] Dec, [facility] [place] [facility] [address] [id number] [place] [address] Dec, [facility] [place] [facility] [address] [id number] [place] [address] Dec, [facility] [place] [facility] [address] [id number] [place] [address] Dec, [facility] [place] [facility] [address] [id number] [place] [address] Nov, UNKNOWN Nov, [facility] [place] [facility] [address] [id number] [place] [address] October, [facility] [place] [facility] [address] [id number] [place] [address] Sep, [facility] [place] [facility] [address] [id number] [place] [address] 6573 Sep, [facility] [place] [facility] [address] [id number] [place] [address] 78[address] Aug, [facility] [place] [facility] [address] [id number] [place] [address] Aug, [facility] [place] [facility] [address] [facility] [id number] [place] [address] Jul, [facility] [place] [facility] [address] [id number] [place] [address]60 Jul, [facility] [place] [facility] [address] [id number] [place] [address]- 2005 Jul, [facility] [place] [facility] [address] [id number] [place] [address] Jul, [facility] [place] [facility] [address] [facility] [id number] [place] [address] Jul, [facility] [place] [facility] [address] [id number] [place] [address] 6141 Jun, [facility] [place] [facility] [address] [id number] [place] [address]- 0198 Jun, [facility] [place] [facility] [address] [id number] [place] [address] Jun, [facility] [place] [facility] [address] [id number] [place] [address]- 3081 Jun, [facility] [place] [facility] [address] [id number] [place] [address]- 6995 Jun, [facility] [place] [facility] [address] [id number] [place] [address] Jun, [facility] [place] [facility] [address] [id number] [place] [address] Jun, [facility] [place] [facility] [address] [id number] [place] [address]- [address] Jun, [facility] [place] [facility] [address] [id number] [place] [address]- [address]16 Jun, [facility] [place] [facility] [address] [id number] [place] [address]- [address] Jun, [facility] [place] [facility] [address] [id number] [place] [address] Jun, [facility] [place] [facility] [address] [id number] [place] [address]- 2045 Jun, [facility] [place] [facility] [address] [id number] [place] [address] Jun, [facility] [place] [facility] [address] [id number] [place] [address] 1978 Jun, [facility] [place] [facility] [address] [id number] [place] [address] Jun, [facility] [place] [facility] [address] [id number] [place] [address] 0547 Jun, [facility] [address] [id number] [place] [address] 7544 Jun, [facility] [address] [id number] [place] [address] 2956 Jun, [facility] [address] [id number] [place] [address] 8067 May, [facility] [place] [facility] [address] [id number] [place] [address] 5652 May, [facility] [address] [id number] [place] [address]- 3289 May, [facility] [address] [id number] [place] [address]- 9687 May, [facility] [address] [id number] [place] [address] 3010 May, [facility] [address] [id number] [place] [address]- 1465 May, [facility] [address] [id number] [place] [address]- 5827 May, [facility] [address] [id number] [place] [address]- 2064 May, [facility] [address] [id number] [place] [address] 49[address] May, [facility] [address] [id number] May, [facility] [place] [facility] [address] [id number] [place] [address]- 3778 May, [facility] [place] [facility] [address] [id number] [place] [address]- 8174 May, [facility] [place] [facility] [address] [id number] [place] [address]- 8873 May, [facility] [place] [facility] [address] [id number] [place] [address]- 2957 Apr, [facility] [place] [facility] [address] [id number] [place] [address]- 4453 Apr, [facility] [place] [facility] [address] [id number] [place] [address]- 6404 Apr, [facility] [place] [facility] [address] [id number] [place] [address]- 1029 Apr, [facility] [place] [facility] [address] [id number] [place] [address]- 7086 Apr, [facility] [place] [facility] [address] [id number] [place] [address]- 0301 Apr, [facility] [place] [facility] [address] [id number] [place] [address]- 4731 Mar, [facility] [place] [facility] [address] [id number] [place] [address]- 0378 Mar, [facility] [place] [facility] [address] [id number] [place] [address]- 7682 Mar, [facility] [place] [facility] [address] [id number] [place] [address] 3335 Mar, [facility] [place] [facility] [address] [id number] [place] [address]- 2144 Mar, [facility] [place] [facility] [address] [id number] [place] [address] 5237 Mar, [facility] [place] [facility] [address] [id number] [place] [address]- 5843 Feb, [facility] [place] [facility] [address] [id number] [place] [address]- 5242 Feb, [facility] [place] [facility] [address] [id number] [place] [address]- 3976 Feb, [facility] [place] [facility] [address] [id number] [place] [address]- 0954 Feb, [facility] [place] [facility] [address] [id number] [place] [address] 1258 Feb, [facility] [address] [id number] [place] [address] 7522 Feb, [facility] [address] [id number] [place] [address]- 7925 Feb, [facility] [address] [id number] [place] [address]- 8012 Feb, [facility] [address] [id number] [place] [address]- 8831 Feb, [facility] [address] [id number] [place] [address] 0[address] Feb, [facility] [address] [id number] Feb, [facility] [address] [id number] [place] [address] 9468 Feb, [facility] [address] [id number] [place] [address]- 1740 Jan, [facility] [address] [id number] [place] [address]- 4700 Jan, [facility] [address] [id number] [place] [address]- 2814 Dec, [facility] [address] [id number] [place] [address]- 3508 Dec, [facility] [place] [facility] [address] [id number] [place] [address]- 1480 Dec, [facility] [place] [facility] [address] [id number] [place] [address]- 3111 Dec, [facility] [place] [facility] [address] [id number] [place] [address]- 8888 Dec, [facility] [place] [facility] [address] [id number] [place] [address]- 4404 Dec, [facility] [place] [facility] [address] [id number] [place] [address]- 5291 Dec, 2013 [facility] [place] [facility] [address] [id number] [place] [address]- 4959 Dec, [facility] [place] [facility] [address] [id number] [place] [address]- 3594 Dec, [facility] [place] [facility] [address] [id number] [place] [address]- 6220 Dec, [facility] [place] [facility] [address] [id number] [place] [address]- 2514 Nov, [facility] [place] [facility] [address] [id number] [place] [address]- 2738 Nov, [facility] [place] [facility] [address] [id number] [place] [address]- 4732 Nov, [facility] [place] [facility] [address] [id number] [place] [address]- 6797 Nov, [facility] [place] [facility] [address] [id number] [place] [address]- 1753 Nov, [facility] [place] [facility] [address] [id number] [place] [address]- 9258 Nov, [facility] [place] [facility] [address] [id number] [place] [address]- 4496 Nov, [facility] [place] [facility] [address] [id number] [place] [address]- 3450 Nov, [facility] [place] [facility] [address] [id number] [place] [address]- 8173 Nov, [facility] [place] [facility] [address] [id number] [place] [address]- 5490 Nov, [facility] [place] [facility] [address] [id number] [place] [address]- 4697 Nov, [facility] [place] [facility] [address] [id number] [place] [address]- 9476 Nov, [facility] [place] [facility] [address] [id number] [place] [address]- 0457 Nov, [facility] [place] [facility] [address] [id number] [place] [address]- 8774 Nov, [facility] [place] [facility] [address] [id number] [place] [address]- 9487 October, [facility] [place] [facility] [address] [id number] [place] [address]- 2944 October, [facility] [place] [facility] [address] [id number] [place] [address]- 9967 October, [facility] [place] [facility] [address] [id number] [place] [address]- 8819 October, [facility] [place] [facility] [address] [id number] [place] [address]- 4162 October, [facility] [place] [facility] [address] [id number] [place] [address]- 2971 October, [facility] [place] [facility] [address] [id number] [place] [address]- 5850 October, [facility] [place] [facility] [address] [id number] [place] [address]- 3222 October, [facility] [place] [facility] [address] [id number] [place] [address]- 9633 October, [facility] [place] [facility] [address] [id number] [place] [address]- 7570 October, [facility] [place] [facility] [address] [id number] [place] [address]- 8568 Sep, [facility] [place] [facility] [address] [id number] [place] [address]- 6274 Sep, [facility] [place] [facility] [address] [id number] [place] [address]- 3266 Sep, [facility] [place] [facility] [address] [id number] [place] [address]- 4327 14 Sep, 2013 [facility] [address] [id number] [place] [address]- 9427 14 Sep, 2013 [facility] [place] [facility] [address] [id number] [place] [address]- 5376 14 Sep, 2013 [facility] [address] [id number] [place] [address]- 5843 Sep, [facility] [place] [facility] [address] [id number] [place] [address]- 6208 Sep, [facility] [place] [facility] [address] [id number] [place] [address]- 2985 Sep, [facility] [place] [facility] [address] [id number] [place] [address]- 9094 Sep, [facility] [place] [facility] [address] [id number] [place] [address]- 3224 Aug, [facility] [place] [facility] [address] [id number] [place] [address]- 2645 Aug, [facility] [place] [facility] [address] [id number] [place] [address]- 9371 Aug, [facility] [place] [facility] [address] [id number] [place] [address]- 5113 Aug, [facility] [place] [facility] [address] [id number] [place] [address]- 5102 Aug, [facility] [place] [facility] [address] [id number] [place] [address]- 4658 Aug, [facility] [place] [facility] [address] [id number] [place] [address]- 3933 05 Aug, 2013 [facility] [place] [facility] [address] [id number] [place] [address]- 9040 Aug, [facility] [place] [facility] [address] [id number] [place] [address]- 8876 Aug, [facility] [place] [facility] [address] [id number] [place] [address]- 9015 Jul, [facility] [place] [facility] [address] [id number] [place] [address]- 3356 Jul, [facility] [place] [facility] [address] [id number] [place] [address]- 1886 Jul, [facility] [place] [facility] [address] [id number] [place] [address]- 9786 Jul, [facility] [place] [facility] [address] [id number] [place] [address]- 8216 Jul, [facility] [place] [facility] [address] [id number] [place] [address]- 1706 Jul, [facility] [place] [facility] [address] [facility] [id number] [place] [address]- 7136 Jul, [facility] [place] [facility] [address] [id number] [place] [address]- 3970 Jul, [facility] [place] [facility] [address] [facility] [id number] [place] [address]- 6002 Jul, [facility] [place] [facility] [address] [facility] [id number] [place] [address]- 9297 Jul, [facility] [place] [facility] [address] [facility] [id number] [place] [address]- 9656 Jul, [facility] [place] [facility] [address] [facility] [id number] [place] [address]- 5316 Jul, [facility] [place] [facility] [address] [facility] [id number] [place] [address]- 8676 Jul, [facility] [place] [facility] [address] [id number] [place] [address]- 5886 Jul, [facility] [place] [facility] [address] [facility] [id number] [place] [address]- 9687 Jul, [facility] [place] [facility] [address] [id number] [place] [address]- 5851 Jul, [facility] [place] [facility] [address] [id number] [place] [address]- 3643 Jun, [facility] [place] [facility] [address] [id number] [place] [address]- 0574 Jun, [facility] [place] [facility] [address] [id number] [place] [address]- 5264 Jun, [facility] [place] [facility] [address] [id number] [place] [address]- 5490 Jun, [facility] [place] [facility] [address] [id number] [place] [address]- 3787 Jun, [facility] [place] [facility] [address] [id number] [place] [address]- 2604 Jun, [facility] [place] [facility] [address] [id number] [place] [address]- 5709 May, [facility] [place] [facility] [address] [id number] [place] [address]- 8019 May, [facility] [place] [facility] [address] [id number] [place] [address]- 1232 May, [facility] [place] [facility] [address] [id number] [place] [address]- 0770 May, [facility] [place] [facility] [address] [id number] [place] [address]- 5877 Apr, [facility] [place] [facility] [address] [id number] [place] [address]- 6187 Apr, [facility] [place] [facility] [address] [id number] [place] [address]- 4238 Apr, [facility] [place] [facility] [address] [id number] [place] [address]- 3605 Apr, [facility] [place] [facility] [address] [id number] [place] [address]- 9647 Apr, [facility] [place] [facility] [address] [id number] [place] [address]- 5248 Apr, [facility] [place] [facility] [address] [id number] [place] [address]- 4852 Apr, [facility] [place] [facility] [address] [id number] [place] [address]- 5177 Apr, [facility] [place] [facility] [address] [id number] [place] [address]- 6610 Apr, [facility] [place] [facility] [address] [id number] [place] [address]- 5936 Apr, [facility] [place] [facility] [address] [id number] [place] [address]- 4931 Apr, [facility] [place] [facility] [address] [id number] [place] [address]- 3529 Apr, [facility] [place] [facility] [address] [id number] [place] [address]- 6911 28 Mar, 2013 [facility] [place] [facility] [address] [id number] [place] [address]- 1425 28 Mar, 2013 [facility] [place] [facility] [address] [id number] [place] [address]- 6145 16 Mar, 2013 [facility] [place] [facility] [address] [id number] [place] [address]- 6668 16 Mar, 2013 [facility] [place] [facility] [address] [id number] [place] [address]- 0259 15 Mar, 2013 [facility] [place] [facility] [address] [id number] [place] [address]- 5442 15 Mar, 2013 [facility] [place] [facility] [address] [id number] [place] [address]- 0657 27 Feb, 2013 [facility] [place] [facility] [address] [id number] [place] [address]- 6030 25 Feb, 2013 [facility] [place] [facility] [address] [id number] [place] [address]- 4887 25 Feb, 2013 [facility] [address] [id number] [place] [address]- 5926 23 Feb, 2013 [facility] [address] [id number] [place] [address] 2546 17 Feb, 2013 [facility] [address] [id number] [place] [address]- 2312 10 Feb, 2013 [facility] [address] [id number] [place] [address] 2543 04 Feb, 2013 [facility] [address] [id number] [place] [address]- 4353 30 Jan, 2013 [facility] [address] [id number] [place] [address]- 2291 Jan, [facility] [address] [id number] [place] [address]- 4372 Jan, [facility] [address] [id number] [place] [address]- 3469 Jan, [facility] [address] [id number] [place] [address]- 7284 Jan, [facility] [address] [id number] [place] [address]- 3569 Jan, [facility] [place] [facility] [address] [id number] [place] [address]- 2542 Jan, [facility] [address] [id number] [place] [address]- 2545 Dec, [facility] [place] [facility] [address] [id number] [place] [address]- 0043 Dec, [facility] [place] [facility] [address] [id number] [place] [address]- 2542 Dec, [facility] [place] [facility] [address] [id number] [place] [address]- 1313 Dec, [facility] [address] [id number] [place] [address]- 2072 Dec, [facility] [place] [facility] [address] [id number] [place] [address]- 5026 Dec, [facility] [place] [facility] [address] [id number] [place] [address]- 0170 Nov, [facility] [place] [facility] [address] [id number] [place] [address]- 7531 Nov, [facility] [address] [id number] [place] [address]- 5803 Nov, [facility] [place] [facility] [address] [id number] [place] [address]- 2275 Nov, [facility] [place] [facility] [address] [id number] [place] [address]- 8151 October, [facility] [place] [facility] [address] [id number] [place] [address]- 7710 October, [facility] [place] [facility] [address] [id number] [place] [address]- 9502 October, [facility] [place] [facility] [address] [id number] [place] [address]- 0862 October, [facility] [place] [facility] [address] [id number] [place] [address]- 6184 Sep, [facility] [place] [facility] [address] [id number] [place] [address]- 1596 Sep, [facility] [place] [facility] [address] [id number] [place] [address]- 4922 16 Sep, 2012 [facility] [place] [facility] [address] [id number] [place] [address]- 9353 Sep, [facility] [place] [facility] [address] [id number] [place] [address]- 2580 Sep, [facility] [place] [facility] [address] [id number] [place] [address]- 2455 04 Sep, 2012 [facility] [address] [id number] [place] [address]- 5087 02 Sep, 2012 [facility] [place] [facility] [address] [id number] [place] [address]- 4466 02 Sep, 2012 [facility] [address] [id number] [place] [address]- 5916 13 Aug, 2012 [facility] [place] [facility] [address] [id number] [place] [address]- 1834 13 Aug, 2012 [facility] [address] [id number] [place] [address]- 1132 05 Aug, 2012 [facility] [address] [id number] [place] [address]- 9144 18 Jul, 2012 [facility] [address] [id number] [place] [address]- 4900 08 Jul, 2012 [facility] [place] [facility] [address] [id number] [place] [address]- 5744 07 Jul, 2012 [facility] [address] [facility] [id number] [place] [address]- 8789 06 Jul, 2012 [facility] [address] [facility] [id number] [place] [address]- 0107 05 Jul, 2012 [facility] [address] [facility] [id number] [place] [address] Jun, [facility] [place] [facility] [address] [id number] [place] [address] Jun, [facility] [place] [facility] [address] [id number] [place] [address] Jun, [facility] [place] [facility] [address] [facility] [id number] [place] [address] May, [facility] [address] [facility] [id number] [address] May, [facility] [place] [facility] [address] [id number] [place] [address] May, [facility] [place] [facility] [address] [id number] [place] [address] May, [facility] [place] [facility] [address] [id number] [place] [address] May, [facility] [place] [facility] [address] [id number] [place] [address] May, [facility] [place] [facility] [address] [id number] [place] [address] May, [facility] [place] [facility] [address] [id number] [place] [address] Apr, [facility] [place] [facility] [address] [id number] [place] [address] Apr, [facility] [place] [facility] [address] [id number] [place] [address] Apr, [facility] [place] [facility] [address] [id number] [place] [address] Apr, [facility] [place] [facility] [address] [id number] [place] [address] 7869 Apr, [facility] [place] [facility] [address] [id number] [place] [address] Apr, [facility] [place] [facility] [address] [id number] [place] [address] 79[address] Apr, [facility] [place] [facility] [address] [id number] [place] [address]- [address] Apr, [facility] [place] [facility] [address] [id number] [place] [address] Apr, [facility] [place] [facility] [address] [id number] [place] [address]- 1033 Apr, [facility] [place] [facility] [address] [id number] [place] [address] 2546 Apr, [facility] [place] [facility] [address] [id number] [place] [address]83 Mar, [facility] [place] [facility] [address] [id number] [place] [address] Mar, [facility] [place] [facility] [address] [id number] [place] [address]- [address] Mar, [facility] [place] [facility] [address] [id number] [place] [address] Mar, [facility] [place] [facility] [address] [id number] [place] [address] Mar, [facility] [place] [facility] [address] [id number] [place] [address]- [address] Mar, [facility] [place] [facility] [address] [id number] [place] [address] Mar, [facility] [place] [facility] [address] [id number] [place] [address] 77[address] Mar, [facility] [place] [facility] [address] [id number] [place] [address] 6[address] Mar, [facility] [place] [facility] [address] [id number] [place] [address]29 16 Mar, 2012 [facility] [place] [facility] [address] [id number] [place] [address] 04 Mar, 2012 [facility] [place] [facility] [address] [id number] [place] [address] 2012 [facility] [place] [facility] [address] [id number] [place] [address] 27 Feb, 2012 [facility] [place] [facility] [address] [id number] [place] [address] 27 Feb, 2012 [facility] [place] [facility] [address] [id number] [place] [address] 26 Feb, 2011 [facility] [place] [facility] [address] [id number] [place] [address] 24 Feb, 2012 [facility] [place] [facility] [address] [id number] [place] [address] 19 Feb, 2012 [facility] [place] [facility] [address] [id number] [place] [address] 25[address] Feb, [facility] [address] [id number] [place] [address] 8[address] Feb, [facility] [place] [facility] [address] [id number] [place] [address] Feb, [facility] [address] [id number] [place] [address] Jan, [facility] [place] [facility] [address] [id number] [place] [address] 09[address] Jan, [facility] [place] [facility] [address] [id number] [place] [address] 38[address] Jan, [facility] [address] [id number] [place] [address] Jan, [facility] [place] [facility] [address] [id number] [place] [address] Dec, [facility] [address] [id number] [place] [address] Dec, [facility] [place] [facility] [address] [id number] [place] [address]- 25[address] Dec, [facility] [place] [facility] [address] [id number] [place] [address]- 9673 Dec, [facility] [place] [facility] [address] [id number] [place] [address] Dec, [facility] [place] [facility] [address] [id number] [place] [address]- 12[address] Dec, [facility] [place] [facility] [address] [id number] [place] [address]- 6[address] Dec, [facility] [place] [facility] [address] [id number] [place] [address]- 0[address] Dec, [facility] [place] [facility] [address] [id number] [place] [address]- 6279 Dec, [facility] [place] [facility] [address] [id number] [place] [address]- [address] Dec, [facility] [place] [facility] [address] [id number] [place] [address]- 8604 Dec, [facility] [place] [facility] [address] [id number] [place] [address]- 4664 Dec, [facility] [place] [facility] [address] [id number] [place] [address]- 4[address] Dec, [facility] [place] [facility] [address] [id number] [place] [address]- 0158 Dec, [facility] [place] [facility] [address] [id number] [place] [address]- 245[address] Nov, [facility] [place] [facility] [address] [id number] [place] [address]- 0818 Nov, [facility] [place] [facility] [address] [id number] [place] [address]- 1656 Nov, [facility] [place] [facility] [address] [id number] [place] [address]- [address] Nov, [facility] [place] [facility] [address] [id number] [place] [address] Nov, [facility] [place] [facility] [address] [id number] [place] [address]- 7631 Nov, [facility] [place] [facility] [address] [id number] [place] [address]- [address] October, [facility] [facility] [address] [id number] [place] [address] October, [facility] [place] [facility] [address] [id number] [place] [address] October, [facility] [address] [id number] [place] [address] October, [facility] [place] [facility] [address] [id number] [place] [address] Sep, [facility] [address] [facility] [id number] [place] [address] 17 Sep, 2011 [facility] [place] [facility] [address] [id number] [place] [address] 13 Sep, 2011 [facility] [address] [id number] [place] [address] Sep, [facility] [address] [id number] [place] [address] Sep, [facility] [address] [id number] [place] [address] Aug, [facility] [address] [id number] [place] [address] Aug, [facility] [address] [id number] [place] [address] Aug, [facility] [address] [facility] [id number] [place] [address] Aug, [facility] [address] [id number] [place] [address] Aug, [facility] [facility] [address] [id number] [place] [address] Aug, [facility] [place] [facility] [address] [id number] [place] [address] Aug, [facility] [address] [facility] [id number] [place] [address] Jul, [facility] [facility] [address] [facility] [id number] [place] [address] Jul, [facility] [address] [id number] [place] [address] Jul, [facility] [address] [id number] [place] [address] Jul, [facility] [address] [facility] [id number] [place] [address] Jun, [address] [id number] Jun, [facility] [address] [id number] [place] [address] Jun, [facility] [address] [id number] [place] [address] Jun, [facility] [address] [facility] [id number] [place] [address] Jun, [facility] [address] [id number] [place] [address] Jun, [facility] [address] [id number] [place] [address] Jun, [facility] [address] [id number] [place] [address] Jun, [facility] [address] [facility] [id number] [place] [address] May, [facility] [address] [id number] [place] [address] May, [facility] [address] [id number] [place] [address] May, [facility] [address] [id number] [place] [address] May, [facility] [address] [id number] [place] [address] May, [facility] [address] [id number] [place] [address] May, [facility] [place] [address] [id number] [place] [address] May, [facility] [place] [facility] [address] [id number] [place] [address]- [address] 29 Apr, 2011 [facility] [facility] [address] [id number] [place] [address] 6426 17 Apr, 2011 [facility] [facility] [address] [id number] [place] [address] Apr, [facility] [place] [facility] [address] [id number] [place] [address] 27 Mar, 2011 [facility] [place] [facility] [address] [id number] [place] [address]- 8669 20 Mar, 2011 [facility] [address] [id number] [place] [address] 24[address] 14 Mar, 2011 [facility] [address] [id number] [place] [address]- [address] 11 Mar, 2011 [facility] [address] [id number] [place] [address]70 10 Mar, 2011 [facility] [address] [id number] [place] [address] Mar, [facility] [address] [id number] [place] [address] Mar, [facility] [address] [id number] [place] [address] Jan, [facility] [address] [id number] [place] [address] 27 May, 2010 [facility] [facility] [address] [id number] [place] [address] 8420 May, [facility] [address] [id number] [place] [address] 80[address] 13 May, 2010 [facility] [facility] [address] [id number] [place] [address] 9436 13 May, 2010 [facility] [place] [address] [id number] [place] [address] 10 May, 2010 [facility] [facility] [address] [facility] [id number] [place] [address]- [address] 06 May, 2010 [facility] [address] [facility] [id number] [place] [address]- [address]29 29 Apr, 2010 [facility] [address] [id number] [place] [address] 26 Apr, 2010 [facility] [address] [facility] [id number] [place] [address], [place] [address]- [address] Apr, [facility] [address] [facility] [id number] [place] [address] 5009 18 Apr, 2010 [facility] [id number] [place] [address] 15 Apr, 2010 [facility] [address] [facility] [id number] [place] [address] Apr, [facility] [address] [id number] [place] [address] Apr, [facility] [address] [id number] [place] [address]- 7068 Apr, [facility] [address] [facility] [id number] [place] [address]- 4[address] Apr, [facility] [address] [facility] [id number] [place] [address]- 7841 Apr, [facility] [address] [facility] [id number] [place] [address] 28[address] Mar, [facility] [address] [facility] [id number] [place] [address]- 8865 Mar, [facility] [address] [facility] [id number] [place] [address]- 1187 Mar, [facility] [address] [facility] [id number] [place] [address]- [address] Mar, [facility] [address] [facility] [id number] [place] [address] 9984 Mar, [facility] [address] [facility] [id number] [place] [address] Dec, [facility] [address] [facility] [id number] [place] [address]- 78[address] Nov, IMMUNIZATIONS No Known Immunizations SOCIAL HISTORY [...]
--- OUTSIDE RECORDS SUMMARY | 2018-02-04 13:22 | XMS REPORT ---
Author Author NAHOMY BETH Organization [facility] Address [address] [place] [address] Care Team Providers Care Genetics Physician Name Role Phone NAHOMY BETH Unavailable PROBLEMS Type Condition ICD9-CM Code RQU22-WI Code Onset Dates Condition Status SNOMED Code Problem History of colon polyps Z86.010 Active 575105603 Problem Factitious disorder imposed on self, recurrent episode F68.10 Active 16646409 Problem Anemia, unspecified type D64.9 Active 165024306 Problem Allergic state, subsequent encounter T78.40XD Active 431624889 Problem Unspecified psychosis not due to a substance or known physiological condition F29 Active 08087136 Problem Age-related osteoporosis without current pathological fracture M81.0 Active 21236018 Problem Personality disorder F60.9 Active 01078705 Problem Iron deficiency anemia, unspecified iron deficiency anemia type D50.9 Active 41490800 Problem Anxiety F41.9 Active 87454595 Problem History of CVA with residual deficit I69.30 Active 020828513 Problem Insomnia, unspecified type G47.00 Active 692154730 Problem Perennial allergic rhinitis, unspecified allergic rhinitis trigger J30.89 Active 590575583 Problem Seizure disorder G40.909 Active 152731065 Problem Chronic kidney disease, unspecified stage N18.9 Active 357258146 Problem Back pain M54.9 Active 670725473 Problem Gastroesophageal reflux disease without esophagitis K21.9 Active 730406396 ALLERGIES No Information ENCOUNTERS Encounter Location Date Diagnosis [facility] [id number], [place] [address] Dec, [facility] [address], [place] [address] Nov, [facility] [id number], [place] [address] 8470 Nov, [facility] [address], [place] [address] October, [facility] [id number] [place] [address] 70356- 0361 October, [facility] [address], [place] [address]65 October, Unspecified psychosis not due to a substance or known physiological condition F29 ; Personality disorder F60.9 and Factitious disorder imposed on self, recurrent episode F68.10 [facility] [address], [place] [address] October, Back pain M54.9 [facility] [id number] [place] [address] 09486- 4769 October, Seizure disorder G40.909 ; Back pain M54.9 and Allergic state, subsequent encounter T78.40XD [facility] [address], [place] [address] October, [facility] [id number] [place] [address] 91469- 4662 Sep, Back pain M54.9 [facility] [address], [place] [address] 93[address] Sep, Unspecified psychosis not due to a substance or known physiological condition F29 ; Personality disorder F60.9 and Factitious disorder imposed on self, recurrent episode F68.10 [facility] [address], [place] [address] 7[address] Sep, [facility] [address], [place] [address] 5810 Sep, [facility] [id number], [place] [address] 8015 Sep, [facility] [address], [place] [address]- 5832 Sep, [facility] [id number] [address] [address] Aug, [facility] [address] [address] Aug, Back pain M54.9 [facility] [id number] [address] Aug, Factitious disorder imposed on self, recurrent episode F68.10 ; Personality disorder F60.9 ; Insomnia, unspecified type G47.00 and Anxiety F41.9 [facility] [address], [place] [address] Aug, Back pain M54.9 ; Iron deficiency anemia, unspecified iron deficiency anemia type D50.9 ; Chronic kidney disease, unspecified stage N18.9 and Breast cancer screening Z12.31 [facility] [id number] [id number] Jul, Back pain M54.9 [facility] [id number] [id number] Jul, [facility] [id number] [id number] Jul, [facility] [id number] [id number] Jun, Back pain M54.9 [facility] [id number] [address] Jun, [facility] [address] [id number] [address] Jun, Back pain M54.9 [facility] [id number], [place] [address] 2546 Jun, Back pain M54.9 ; Seizure disorder G40.909 and Age-related osteoporosis without current pathological fracture M81.0 [facility] [id number][place] [address] May, [facility] [address], [place] [address]- 66[address] 06 May, 2017 Back pain M54.9 [facility] [id number] [place] [address] 70060- 3077 Apr, Back pain M54.9 ; Encounter for immunization Z23 ; Gastroesophageal reflux disease without esophagitis K21.9 ; Age-related osteoporosis without current pathological fracture M81.0 and Chronic pruritus L29.9 [facility] [id number] [place] [address] 59072- 7940 16 Apr, 2017 History of CVA with residual deficit I69.30 [facility] [id number] [place] [address] 66391- 3817 Apr, Factitious disorder imposed on self, recurrent episode F68.10 and Personality disorder F60.9 [facility] [id number] [place] [address] [id number] Apr, Back pain M54.9 [facility] [address] [place] [address] 11229- 0759 Mar, Factitious disorder imposed on self, recurrent episode F68.10 [facility] [address] [place] [address] 42176- 9030 Mar, [facility] [address] [id number] [address] Mar, [facility] [id number] [place] [address] [id number] Mar, Back pain M54.9 [facility] [address], [place] [address]- 1086 05 Mar, 2017 Back pain M54.9 ; Seizure disorder G40.909 and Age-related osteoporosis without current pathological fracture M81.0 [facility] [address], [place] [address]- 3670 Feb, History of CVA with residual deficit I69.30 [facility] [address]40565[address], [place] [address]- 5066 19 Feb, 2017 Factitious disorder imposed on self, recurrent episode F68.10 and Personality disorder F60.9 [facility] [address], [place] [address]- 9671 15 Feb, 2017 Back pain M54.9 [facility] [address], [place] [address]- 6222 Feb, [facility] [address] [place] [address] 87446- 3315 Jan, [facility] [address] [place] [address] [id number] Jan, Age- related osteoporosis without current pathological fracture M81.0 and Allergic state, subsequent encounter T78.40XD [facility] [address], [place] [address]- 0[address] Jan, Factitious disorder imposed on self, recurrent episode F68.10 and Personality disorder F60.9 [facility] [address], [place] [address]- 5618 Dec, Back pain M54.9 [facility] [address] [place] [address] 39873- 6306 Dec, Personality disorder F60.9 and Factitious disorder imposed on self, recurrent episode F68.10 [facility] [id number] [address] Dec, Back pain M54.9 [facility] [id number] [id number] Dec, [facility] [id number] [place] [address] [id number] Dec, [facility] [address], [place] [address]- 5297 Dec, [facility] [address], [place] [address]- 9857 Nov, [facility] [address], [place] [address]- 9853 16 Nov, 2016 Back pain M54.9 ; Anemia, unspecified type D64.9 and History of colon polyps Z86.010 [facility] [address], [place] [address]- 6806 09 Nov, 2016 Back pain M54.9 [facility] [id number] [place] [address] [id number] October, Back pain M54.9 [address] [place] [id number] October, Back pain M54.9 and Gastroesophageal reflux disease without esophagitis K21.9 [facility] [id number] [place] [address] [id number] Sep, [facility] [id number] [place] [address] 94214- 1236 Sep, [facility] [id number] [place] [address] 07757- 3548 Sep, [facility] [id number] [place] [address] 88533- 8439 Sep, [facility] [id number] [place] [address] 21273- 9062 Sep, [facility] [address] [place] [address] 92929- 7063 Sep, Seizure disorder G40.909 [facility] [id number] [place] [address] 54971- 5943 Sep, Back pain M54.9 [facility] [id number] [place] [address] 11552- 0225 Sep, [facility] [id number] [place] [address] 43472- 2217 Aug, Back pain M54.9 [facility] [id number] [place] [address] 53305- 8070 Aug, Seizure disorder G40.909 [facility] [id number] [id number] 17 Aug, 2016 [facility] [id number] [place] [address] [id number] 16 Aug, 2016 Back pain M54.9 [facility] [id number] [id number] 14 Aug, 2016 Back pain M54.9 [facility] [id number] [place] [address] [id number] 06 Aug, 2016 Back pain M54.[address] [id number] Jul, Weakness R53.1 [facility] [id number] [place] [address] 44803- 1209 Jul, Seizure disorder G40.909 [facility] [id number] [place] [address] 71100- 6992 Jul, [facility] [address] [place] [address] 40267- 5865 Jul, Breast cancer screening Z12.39 [facility] [address] [place] [address] 06115- 8287 Jul, [facility] [address] [place] [address] 87056- 6823 Jul, [facility] [address] [place] [address] 78021- 4217 Jul, [facility] [address] [place] [address] 93963- 5444 Jul, Seizure disorder G40.909 ; Fatigue, unspecified type R53.83 ; Perennial allergic rhinitis, unspecified allergic rhinitis trigger J30.89 and Chronic kidney disease, unspecified stage N18.9 [facility] [address] [place] [address] 52952- 0183 Jul, [facility] [address], [place] [address]- 7614 Jul, Seizure disorder G40.909 [facility] [address] [place] [address] 14503- 6776 Jun, [facility] [address] [place] [address] 50136- 6568 Jun, [address] [id number] Jun, Perennial allergic rhinitis, unspecified allergic rhinitis trigger J30.89 [facility] [place] [id number] [place] [address] [id number] Jun, [facility] [id number] [place] [address] 98705- 3573 Jun, Seizure disorder G40.909 [facility] [place] [id number] [place] [address] [id number] Jun, [facility] [place] [id number] [place] [address] [id number] May, [facility] [id number] [place] [address] 23978- 9054 May, [facility] [id number] [place] [address] 30952- 0229 May, [facility] [address] [place] [address] 80990- 9098 May, [facility] [id number] [place] [address] 43630- 2997 May, History of CVA with residual deficit I69.30 [facility] [id number] [place] [address] 59720- 1465 May, [facility] [address] [place] [address] 49629- 5859 May, [facility] [id number] [place] [address] 22052- 4669 May, [facility] [address] [facility] [id number], [place] [address]- 3996 May, Seizure disorder G40.909 [facility] [address] [facility] [id number] [place] [address] 18347- 3186 May, [facility] [address] [place] [address] May, Back pain M54.9 and Seizure disorder G40.909 [facility] [address] [facility] [id number], [place] [address]- 7166 Apr, [facility] [address] [facility] [id number] [place] [address] 50363- 1749 Apr, Back pain M54.9 [facility] [address] [facility] [id number] [place] [address] 46931- 3605 Mar, [facility] [address] [place] [address] Mar, Insomnia, unspecified type G47.00 [facility] [address] [facility] [id number], [place] [address]- 8288 Mar, [facility] [address] [facility] [id number] [place] [address] 11467- 9620 Feb, [facility] [address] [facility] [id number], [place] [address]- 1610 Feb, [facility] [address] [facility] [id number], [place] [address]- 5938 Feb, [facility] [address] [facility] [id number], [place] [address]- 0960 Jan, [facility] [address] [facility] [id number], [place] [address]- 4277 Jan, [facility] [address] [place] [address] Jan, Seizure disorder G40.909 and Back pain M54.9 [facility] [address], [place] [address]- 1661 Dec, [facility] [address] [place] [address] 41999- 8427 Dec, [facility] [address] [place] [address] 17700- 2259 Dec, [facility] [id number] [place] [address] 46977- 0336 Nov, [facility] [id number] [place] [address] 86070- 5423 Nov, [facility] [id number] [place] [address] 55045- 6576 Nov, Back pain M54.9 [facility] [id number] [place] [address] 16859- 9099 October, [facility] [id number] [place] [address] 98001- 8352 October, Back pain M54.9 [facility] [id number] [place] [address] 72108- 6591 October, Seizure disorder G40.909 and B12 deficiency E53.8 [facility] [id number] [place] [address] 89017- 6087 Sep, History of CVA with residual deficit I69.30 [facility] [id number] [place] [address] 78154- 2048 Sep, [facility] [address] [place] [address] 72163- 2187 Sep, [facility] [id number] [place] [address] 05289- 9611 Sep, Back pain M54.9 [facility] [address] [place] [address] 23731- 4476 Sep, Seizure disorder G40.909 [facility] [id number] [place] [address] 17097- 0935 25 Aug, 2015 Back pain M54.9 [facility] [id number] [place] [address] 10591- 2648 18 Aug, 2015 Seizure disorder G40.909 [facility] [id number] [place] [address] 87747- 7930 16 Aug, 2015 Back pain M54.9 [facility] [id number] [place] [address] 41082- 3442 14 Aug, 2015 Heart failure, unspecified I50.9 [facility] [id number] [place] [address] 32325- 1274 14 Aug, 2015 Medication monitoring encounter Z51.81 [facility] [id number] [place] [address] 43895- 0171 15 Jul, 2015 [facility] [address] 80591- 5919 09 Jul, 2015 Seizure disorder G40.909 [facility] [id number] [place] [address] 36837- 7003 05 Jul, 2015 Back pain M54.9 [facility] [id number] [place] [address] 59708- 6341 Jun, [facility] [id number] [place] [address] 09392- 7225 Jun, [facility] [id number] [place] [address] 19533- 4208 Jun, Mental status change R41.82 ; History of CVA with residual deficit I69.30 ; Back pain M54.9 and Seizure disorder G40.909 [facility] [id number] [place] [address] 42227- 1569 Jun, [facility] [id number] [place] [address] 96371- 1309 May, [facility] [address] [facility] [place] [address]- 4736 Apr, [facility] [address] [id number] [place] [address]- 5826 Apr, Medication monitoring encounter Z51.81 [facility] [address] [id number] [place] [address]- 2546 Mar, Vomiting R11.10 [facility] [address] [id number] [place] [address]- 2546 Mar, [facility] [address] [id number] [place] [address]- 9556 Feb, [facility] [address] [id number] [place] [address]- 4646 Feb, UTI (urinary tract infection) 599.0 [facility] [address] [id number] [place] [address]- 4086 Jan, [facility] [address] [id number], [place] [address]- 1666 Jan, [facility] [address] [id number] [place] [address]- 6356 Jan, [facility] [address] [id number], [place] [address]- 6116 Dec, [facility] [address] [id number], [place] [address]- 2546 Dec, [facility] [address] [id number], [place] [address]- 2546 Dec, [facility] [address] [id number] [place] [address]- 2546 Dec, [facility] [address] [facility] [id number], [place] [address]- 2546 Nov, UNKNOWN Nov, [facility] [address] [facility] [id number] [place] [address]- 2546 October, [facility] [place] [facility] [address] [id number] [place] [address]- 3489 14 Sep, 2014 [facility] [place] [facility] [address] [id number] [place] [address]- 7902 Sep, [facility] [place] [facility] [address] [id number] [place] [address]- 7837 Aug, [facility] [place] [facility] [address] [id number] [place] [address]- 0014 Aug, [facility] [place] [facility] [address] [id number] [place] [address]- 4965 Jul, [facility] [place] [facility] [address] [id number] [place] [address]- 9968 Jul, [facility] [place] [facility] [address] [facility] [id number] [place] [address]- 2806 Jul, [facility] [place] [facility] [address] [id number] [place] [address]- 4004 Jul, [facility] [place] [facility] [address] [id number] [place] [address]- 9850 Jul, [facility] [place] [facility] [address] [facility] [id number] [place] [address]- 9855 Jun, [facility] [place] [facility] [address] [id number] [place] [address]- 0800 Jun, [facility] [place] [facility] [address] [id number] [place] [address]- 5534 Jun, [facility] [place] [facility] [address] [id number] [place] [address]- 1675 Jun, [facility] [place] [facility] [address] [id number] [place] [address]- 6987 Jun, [facility] [place] [facility] [address] [id number] [place] [address]- 2591 Jun, [facility] [place] [facility] [address] [id number] [place] [address]- 6641 Jun, [facility] [place] [facility] [address] [id number] [place] [address]- 2670 Jun, [facility] [place] [facility] [address] [id number] [place] [address]- 5706 Jun, [facility] [place] [facility] [address] [id number] [place] [address]- 6993 Jun, [facility] [place] [facility] [address] [id number] [place] [address]- 6031 Jun, [facility] [place] [facility] [address] [id number] [place] [address] Jun, [facility] [place] [facility] [address] [id number] [place] [address] Jun, [facility] [place] [facility] [address] [id number] [place] [address] Jun, [facility] [place] [facility] [address] [id number] [place] [address] Jun, [facility] [place] [facility] [address] [id number] [place] [address] Jun, [facility] [place] [facility] [address] [id number] [place] [address] Jun, [facility] [place] [facility] [address] [id number] [place] [address] Jun, [facility] [place] [facility] [address] [id number] [place] [address] May, [facility] [place] [facility] [address] [id number] [place] [address] May, [facility] [place] [facility] [address] [id number] [place] [address] May, [facility] [place] [facility] [address] [id number] [place] [address] May, [facility] [place] [facility] [address] [id number] [place] [address] May, [facility] [address] [id number] [place] [address] May, [facility] [address] [id number] [place] [address] May, [facility] [address] [id number] [place] [address] May, [facility] [address] [id number] [place] [address] May, [facility] [address], [place] [id number] May, [facility] [address] [id number] [place] [address] May, [facility] [address] [id number] [place] [address] May, [facility] [address] [id number] [place] [address] May, [facility] [facility] [address] [id number] [place] [address] Apr, [facility] [address] [id number] [place] [address] 46[address] Apr, [facility] [address] [id number] [place] [address] 4[address] Apr, [facility] [place] [facility] [address] [id number] [place] [address] 9840 Apr, [facility] [place] [facility] [address] [id number] [place] [address] 3014 Apr, [facility] [place] [facility] [address] [id number] [place] [address] Apr, [facility] [address] [id number] [place] [address] 0444 Mar, [facility] [place] [facility] [address] [id number] [place] [address]- 0450 Mar, [facility] [place] [facility] [address] [id number] [place] [address] 2420 Mar, [facility] [place] [facility] [address] [id number] [place] [address]- 5965 Mar, [facility] [place] [facility] [address] [id number] [place] [address]- 5356 Mar, [facility] [place] [facility] [address] [id number] [place] [address]- 7745 Mar, [facility] [place] [facility] [address] [id number] [place] [address]- 9889 Feb, [facility] [place] [facility] [address] [id number] [place] [address]- 6970 Feb, [facility] [place] [facility] [address] [id number] [place] [address]- 8612 Feb, [facility] [place] [facility] [address] [id number] [place] [address]- 2990 Feb, [facility] [place] [facility] [address] [id number] [place] [address] 1943 Feb, [facility] [place] [facility] [address] [id number] [place] [address]- 4321 Feb, [facility] [place] [facility] [address] [id number], [place] [address]- 286[address] 19 Feb, 2014 [facility] [place] [facility] [address] [id number] [place] [address]- 2888 19 Feb, 2014 [facility] [place] [facility] [address] [id number] [place] [address]- 4241 12 Feb, 2014 [facility] [place] [facility] [address] [id number], [place] [address] 5767 12 Feb, 2014 [address] [place] [id number] Feb, [facility] [place] [facility] [address] [id number] [place] [address]- 5518 Feb, [facility] [place] [facility] [address] [id number] [place] [address]- 2082 Jan, [facility] [place] [facility] [address] [id number] [place] [address]- 9795 Jan, [facility] [place] [facility] [address] [id number] [place] [address]- 2695 Dec, [facility] [place] [facility] [address] [id number] [place] [address]- 3659 Dec, [facility] [place] [facility] [address] [id number] [place] [address]- 9669 Dec, [facility] [place] [facility] [address] [id number] [place] [address]- 9349 Dec, [facility] [place] [facility] [address] [id number] [place] [address]- 1554 Dec, [facility] [place] [facility] [address] [id number] [place] [address]- 0850 Dec, [facility] [place] [facility] [address] [id number] [place] [address]- 9008 Dec, [facility] [place] [facility] [address] [id number] [place] [address]- 6913 Dec, [facility] [place] [facility] [address] [id number] [place] [address]- 5798 Dec, [facility] [place] [facility] [address] [id number] [place] [address]- 2161 Dec, [facility] [place] [facility] [address] [id number] [place] [address]- 5946 Nov, [facility] [place] [facility] [address] [id number] [place] [address] Nov, [facility] [place] [facility] [address] [id number] [place] [address]- 8330 Nov, [facility] [place] [facility] [address] [id number] [place] [address]- 5880 Nov, [facility] [place] [facility] [address] [id number] [place] [address]- 9607 Nov, [facility] [place] [facility] [address] [id number] [place] [address]- 7984 Nov, [facility] [place] [facility] [address] [id number] [place] [address]- 0257 Nov, [facility] [place] [facility] [address] [id number] [place] [address]- 0896 Nov, [facility] [place] [facility] [address] [id number] [place] [address]- 5675 Nov, [facility] [place] [facility] [address] [id number] [place] [address]- 9758 Nov, [facility] [place] [facility] [address] [id number] [place] [address]- 4195 Nov, [facility] [place] [facility] [address] [id number] [place] [address]- 2380 Nov, [facility] [place] [facility] [address] [id number] [place] [address]- 5830 Nov, [facility] [place] [facility] [address] [id number] [place] [address]- 9121 Nov, [facility] [place] [facility] [address] [id number] [place] [address]- 8044 October, [facility] [place] [facility] [address] [id number] [place] [address]- 3284 October, [facility] [place] [facility] [address] [id number] [place] [address]- 5353 October, [facility] [place] [facility] [address] [id number] [place] [address]- 7647 October, [facility] [place] [facility] [address] [id number] [place] [address]- 7175 October, [facility] [place] [facility] [address] [id number] [place] [address]- 9069 October, [facility] [place] [facility] [address] [id number] [place] [address]- 9556 October, [facility] [place] [facility] [address] [id number] [place] [address]- 1242 October, [facility] [place] [facility] [address] [id number] [place] [address]- 1311 October, [facility] [place] [facility] [address] [id number] [place] [address]- 4834 October, [facility] [place] [facility] [address] [id number] [place] [address]- 5078 Sep, [facility] [place] [facility] [address] [id number] [place] [address]- 9308 Sep, [facility] [place] [facility] [address] [id number] [place] [address]- 5132 Sep, [facility] [place] [facility] [address] [id number] [place] [address]- 7114 Sep, [facility] [place] [facility] [address] [id number] [place] [address]- 4426 Sep, [facility] [place] [facility] [address] [id number] [place] [address]- 4986 Sep, [facility] [place] [facility] [address] [id number] [place] [address]- 5991 Sep, [facility] [place] [facility] [address] [id number] [place] [address]- 4726 Sep, [facility] [place] [facility] [address] [id number] [place] [address]- 6220 Sep, [facility] [place] [facility] [address] [id number] [place] [address]- 2155 Sep, [facility] [place] [facility] [address] [id number] [place] [address]- 0073 Aug, [facility] [place] [facility] [address] [id number] [place] [address]- 0796 Aug, [facility] [place] [facility] [address] [facility] [id number] [place] [address]- 1643 Aug, [facility] [place] [facility] [address] [id number] [place] [address]- 4805 Aug, [facility] [place] [facility] [address] [id number] [place] [address]- 2703 Aug, [facility] [place] [facility] [address] [facility] [id number] [place] [address]- 5885 Aug, [facility] [place] [facility] [address] [facility] [id number] [place] [address]- 2211 Aug, [facility] [place] [facility] [address] [id number] [place] [address]- 0065 Aug, [facility] [place] [facility] [address] [facility] [id number] [place] [address]- 8031 Aug, [facility] [place] [facility] [address] [facility] [id number] [place] [address]- 4523 Jul, [facility] [place] [facility] [address] [facility] [id number] [place] [address]- 9646 Jul, [facility] [place] [facility] [address] [id number] [place] [address]- 5416 Jul, [facility] [place] [facility] [address] [id number] [place] [address]- 3599 Jul, [facility] [place] [facility] [address] [id number] [place] [address]- 7620 Jul, [facility] [place] [facility] [address] [facility] [id number] [place] [address]- 8073 Jul, [facility] [place] [facility] [address] [id number] [place] [address]- 4087 Jul, 2013 [facility] [place] [facility] [address] [id number] [place] [address]- 6886 Jul, 2013 [facility] [place] [facility] [address] [id number] [place] [address]- 2546 Jul, 2013 [facility] [place] [facility] [address] [id number] [place] [address]- 3986 Jul, 2013 [facility] [place] [facility] [address] [id number] [place] [address]- 7974 Jul, [facility] [place] [facility] [address] [id number] [place] [address]- 2626 Jul, [facility] [place] [facility] [address] [id number] [place] [address]- 9020 Jul, [facility] [place] [facility] [address] [id number] [place] [address]- 0921 Jul, [facility] [place] [facility] [address] [id number] [place] [address]- 8709 Jul, [facility] [place] [facility] [address] [id number] [place] [address]- 8753 Jul, [facility] [place] [facility] [address] [id number] [place] [address]- 0991 Jun, [facility] [place] [facility] [address] [id number] [place] [address]- 9913 Jun, [facility] [place] [facility] [address] [id number] [place] [address]- 5603 Jun, [facility] [place] [facility] [address] [id number] [place] [address]- 3921 Jun, [facility] [place] [facility] [address] [id number] [place] [address]- 9120 Jun, [facility] [place] [facility] [address] [id number], [place] [address]- 3411 Jun, [facility] [address] [id number] [place] [address]- 7399 May, [facility] [place] [facility] [address] [id number] [place] [address]- 3659 May, [facility] [address] [id number] [place] [address]- 9511 May, [facility] [place] [facility] [address] [id number] [place] [address]- 1852 May, [facility] [address] [id number] [place] [address]- 7578 Apr, [facility] [place] [facility] [address] [id number] [place] [address]- 9580 Apr, [facility] [address] [id number] [place] [address]- 9967 Apr, [facility] [place] [facility] [address] [id number], [place] [address]- 6920 Apr, [facility] [address] [id number] [place] [address]- 5062 Apr, [facility] [place] [facility] [address] [id number] [place] [address]- 7510 Apr, [facility] [place] [facility] [address] [id number] [place] [address]- 3001 Apr, [facility] [place] [facility] [address] [id number], [place] [address]- 1521 Apr, [facility] [place] [facility] [address] [id number], [place] [address]- 1063 Apr, [facility] [place] [facility] [address] [id number], [place] [address]- 2183 Apr, [facility] [place] [facility] [address] [id number], [place] [address]- 1249 Apr, [facility] [place] [facility] [address] [id number] [place] [address]- 7022 12 Apr, 2013 [facility] [place] [facility] [address] [id number] [place] [address]- 1636 28 Mar, 2013 [facility] [place] [facility] [address] [id number] [place] [address] 2541 28 Mar, 2013 [facility] [place] [facility] [address] [id number] [place] [address] 2546 16 Mar, 2013 [facility] [place] [facility] [address] [id number] [place] [address] 2544 16 Mar, 2013 [facility] [place] [facility] [address] [id number] [place] [address]- 9343 15 Mar, 2013 [facility] [place] [facility] [address] [id number] [place] [address]- 1205 15 Mar, 2013 [facility] [place] [facility] [address] [id number] [place] [address]- 9977 27 Feb, 2012 [facility] [place] [facility] [address] [id number] [place] [address] 2542 25 Feb, 2012 [facility] [place] [facility] [address] [id number] [place] [address] 2540 25 Feb, 2012 [facility] [place] [facility] [address] [id number] [place] [address] 2547 23 Feb, 2012 [facility] [place] [facility] [address] [id number] [place] [address] 2546 17 Feb, 2012 [facility] [place] [facility] [address] [id number] [place] [address] 2543 10 Feb, 2012 [facility] [place] [facility] [address] [id number] [place] [address] 2546 04 Feb, 2012 [facility] [place] [facility] [address] [id number] [place] [address] 2541 30 Jan, 2013 [facility] [place] [facility] [address] [id number] [place] [address]- 8132 Jan, [facility] [place] [facility] [address] [id number] [place] [address]- 8949 Jan, [facility] [place] [facility] [address] [id number] [place] [address]- 9265 Jan, [facility] [place] [facility] [address] [id number] [place] [address]- 6589 Jan, [facility] [place] [facility] [address] [id number] [place] [address]- 5155 Jan, [facility] [place] [facility] [address] [id number] [place] [address]- 1181 Jan, [facility] [place] [facility] [address] [id number] [place] [address]- 2051 Dec, [facility] [place] [facility] [address] [id number] [place] [address]- 9470 Dec, [facility] [place] [facility] [address] [id number] [place] [address]- 2388 Dec, [facility] [place] [facility] [address] [id number] [place] [address]- 1187 Dec, [facility] [place] [facility] [address] [id number] [place] [address]- 9155 Dec, [facility] [place] [facility] [address] [id number] [place] [address]- 1421 Dec, [facility] [place] [facility] [address] [id number], [place] [address]- 1247 Nov, [facility] [place] [facility] [address] [id number] [place] [address]- 0541 Nov, [facility] [place] [facility] [address] [id number] [place] [address]- 5696 Nov, [facility] [place] [facility] [address] [id number] [place] [address]- 7347 Nov, [facility] [place] [facility] [address] [id number] [place] [address]- 8939 October, [facility] [address] [id number] [place] [address]- 1078 October, [facility] [address] [id number] [place] [address]- 8416 October, [facility] [address] [id number] [place] [address]- 2574 October, [facility] [address] [id number] [place] [address]- 6054 Sep, [facility] [address] [id number] [place] [address]- 1007 Sep, [facility] [address] [id number] [place] [address]- 9493 Sep, [facility] [address] [id number] [place] [address]- 3259 Sep, [facility] [address] [id number] [place] [address]- 6405 Sep, [facility] [address] [id number] [place] [address]- 4980 Sep, [facility] [address] [id number] [place] [address]- 8029 Sep, [facility] [address] [id number] [place] [address]- 6106 Sep, [facility] [address] [id number] [place] [address]- 0869 Aug, [facility] [address] [id number] [place] [address]- 5272 Aug, [facility] [address] [id number] [place] [address] 254 Aug, [facility] [address] [id number] [place] [address]- 8048 Jul, [facility] [address] [id number] [place] [address]- 4816 08 Jul, 2012 [facility] [place] [facility] [address] [id number] [place] [address]- 1756 07 Jul, 2012 [facility] [address] [id number] [place] [address]- 8671 06 Jul, 2012 [facility] [place] [facility] [address] [id number] [place] [address]- 3712 05 Jul, 2012 [facility] [address] [id number] [place] [address]- 7258 Jun, [facility] [address] [id number] [place] [address]- 3792 Jun, [facility] [address] [id number] [place] [address]- 6113 Jun, [facility] [address] [id number] [place] [address]- 5002 May, [facility] [address] [id number] [place] [address]- 2923 May, [facility] [address] [id number] [place] [address]- 0686 May, [facility] [place] [facility] [address] [id number] [place] [address]- 4833 May, [facility] [place] [facility] [address] [id number], [place] [address]- 6101 May, [facility] [place] [facility] [address] [id number] [place] [address]- 9199 May, [facility] [place] [facility] [address] [id number] [place] [address]- 5855 May, [facility] [place] [facility] [address] [id number] [place] [address]- 6962 Apr, [facility] [place] [facility] [address] [id number] [place] [address]- 8656 Apr, [facility] [place] [facility] [address] [id number] [place] [address]- 4458 Apr, [facility] [place] [facility] [address] [id number] [place] [address]- 1507 Apr, [facility] [place] [facility] [address] [id number] [place] [address]- 1756 Apr, [facility] [place] [facility] [address] [id number] [place] [address] Apr, [facility] [place] [facility] [address] [id number] [place] [address] Apr, [facility] [place] [facility] [address] [id number] [place] [address] Apr, [facility] [place] [facility] [address] [facility] [id number] [place] [address] Apr, [facility] [place] [facility] [address] [id number] [place] [address] Apr, [facility] [place] [facility] [address] [id number] [place] [address] 85[address] Apr, [facility] [place] [facility] [address] [facility] [id number] [place] [address] Mar, [facility] [place] [facility] [address] [id number] [place] [address] Mar, [facility] [place] [facility] [address] [id number], [place] [address] Mar, [facility] [place] [facility] [address] [id number] [place] [address] Mar, [facility] [place] [facility] [address] [facility] [id number] [place] [address] Mar, [facility] [place] [facility] [address] [facility] [id number], [place] [address] Mar, [facility] [place] [facility] [address] [id number] [place] [address] 19 Mar, 2012 [facility] [place] [facility] [address] [id number] [place] [address]- 2806 19 Mar, 2012 [facility] [place] [facility] [address] [id number] [place] [address]- 2546 16 Mar, 2012 [facility] [place] [facility] [address] [id number] [place] [address] 8151 16 Mar, 2012 [facility] [place] [facility] [address] [id number] [place] [address]- 0400 04 Mar, 2012 [facility] [place] [facility] [address] [id number] [place] [address] 2011 [facility] [place] [facility] [address] [id number] [place] [address]- 2671 27 Sep, 2011 [facility] [place] [facility] [address] [id number] [place] [address]- 3826 27 Sep, 2011 [facility] [place] [facility] [address] [id number] [place] [address]- 1142 26 Sep, 2011 [facility] [place] [facility] [address] [id number] [place] [address] 4532 24 Feb, 2011 [facility] [place] [facility] [address] [id number] [place] [address] 19 Sep, 2011 [facility] [place] [facility] [address] [id number] [place] [address]- 2541 18 Feb, 2011 [facility] [place] [facility] [address] [id number] [place] [address] 254 18 Sep, 2011 [facility] [place] [facility] [address] [id number] [place] [address] 2545 18 Feb, 2011 [facility] [place] [facility] [address] [id number] [place] [address] 2543 30 Jan, 2012 [facility] [place] [facility] [address] [id number] [place] [address] Jan, [facility] [place] [facility] [address] [id number] [place] [address] 46[address] Jan, [facility] [place] [facility] [address] [id number] [place] [address]- 0066 Jan, [facility] [place] [facility] [address] [id number] [place] [address]- 2525 Dec, [facility] [place] [facility] [address] [id number] [place] [address] 3427 Dec, [facility] [place] [facility] [address] [id number] [place] [address]- 65[address] Dec, [facility] [place] [facility] [address] [id number] [place] [address] 1663 Dec, [facility] [place] [facility] [address] [id number] [place] [address]- 8098 Dec, [facility] [place] [facility] [address] [id number] [place] [address]- 8567 Dec, [facility] [place] [facility] [address] [id number] [place] [address] 8257 Dec, [facility] [place] [facility] [address] [id number] [place] [address]- 0897 Dec, [facility] [place] [facility] [address] [id number] [place] [address]- 0887 Dec, [facility] [place] [facility] [address] [id number] [place] [address]- 1601 Dec, [facility] [place] [facility] [address] [id number] [place] [address]- 9906 Dec, [facility] [place] [facility] [address] [id number] [place] [address]- 8282 Dec, [facility] [place] [facility] [address] [id number] [place] [address]- 3787 Dec, [facility] [place] [facility] [address] [id number] [place] [address]- 377[address] 05 Dec, 2011 [facility] [address] [id number] [place] [address]- 9519 26 Nov, 2011 [facility] [address] [id number] [place] [address]- 1652 14 Nov, 2011 [facility] [address] [id number] [place] [address]- [address] Nov, [facility] [address] [id number] [place] [address] 50[address] Nov, [facility] [address] [id number] [place] [address]- 9226 Nov, [facility] [address] [id number] [place] [address]140 Nov, [facility] [address] [id number] [place] [address]- 7129 30 Oct, 2011 [facility] [address] [id number] [place] [address]- [address]324 October, [facility] [address] [id number] [place] [address]- 3983 October, [facility] [address] [id number] [place] [address]- 8940 October, [facility] [address] [id number] [place] [address]- 5992 19 Sep, 2011 [facility] [address] [id number] [place] [address]- 7541 17 Sep, 2011 [facility] [place] [facility] [address] [id number] [place] [address]- 9492 [address], [address] [facility] [place] [facility] [address] [id number] [place] [address]- 6991 09 Sep, 2011 [facility] [address] [id number] [place] [address]- 3800 03 Sep, 2011 [facility] [address] [id number] [place] [address]- 6651 26 Aug, 2011 [facility] [address] [id number] [place] [address]- 4978 26 Aug, 2011 [facility] [address] [facility] [id number] [place] [address]- 9710 Aug, [facility] [address] [id number] [place] [address]- 1680 20 Aug, 2011 [facility] [address] [id number] [place] [address]- 1542 13 Aug, 2011 [facility] [address] [id number] [place] [address]- 0980 02 Aug, 2011 [facility] [address] [facility] [id number] [place] [address]- 4079 Aug, [facility] [address] [facility] [id number] [place] [address] 16 Jul, 2011 [facility] [address] [facility] [id number] [place] [address] 16 Jul, 2011 [facility] [address] [id number], [place] [address] 15 Jul, 2011 [facility] [address] [facility] [id number], [place] [address] 15 Jul, 2011 [facility] [address] [facility] [id number], [place] [address] 24 Jun, 2011 [facility] and [address] [id number] Jun, [facility] [address] [facility] [id number], [place] [address] 18 Jun, 2011 [facility] [address] [facility] [id number], [place] [address] 10 Jun, 2011 [facility] [address] [facility] [id number], [place] [address] Jun, [facility] [place] [facility] [address] [id number] [place] [address] Jun, [facility] [place] [facility] [address] [id number] [place] [address] Jun, [facility] [place] [facility] [address] [id number] [place] [address] Jun, [facility] [place] [facility] [address] [id number] [place] [address] May, [facility] [place] [facility] [address] [id number] [place] [address] 47[address] May, [facility] [place] [facility] [address] [id number] [place] [address] May, [facility] [place] [facility] [address] [id number] [place] [address] May, [facility] [place] [facility] [address] [id number] [place] [address] May, [facility] [place] [facility] [address] [id number] [place] [address] May, [facility] [place] [facility] [address] [id number] [place] [address] May, [facility] [place] [facility] [address] [id number], [place] [address] Apr, [facility] [place] [facility] [address] [id number], [place] [address] 24[address] Apr, [facility] [place] [facility] [address] [id number] [place] [address] Apr, [facility] [place] [facility] [address] [id number], [place] [address] Mar, [facility] [place] [facility] [address] [id number] [place] [address] Mar, [facility] [place] [facility] [address] [id number] [place] [address] 14 Mar, 2011 [facility] [address] [id number] [place] [address] 11 Mar, 2011 [facility] [place] [facility] [address] [id number] [place] [address] 2546 10 Mar, 2011 [facility] [address] [id number] [place] [address] 10 Mar, 2011 [facility] [place] [facility] [address] [id number] [place] [address] 2540 10 Mar, 2011 [facility] [address] [id number] [place] [address] 5831 11 Jan, 2011 [facility] [address] [id number] [place] [address] 27 May, 2010 [facility] [address] [id number] [place] [address] 21 May, 2010 [facility] [address] [id number] [place] [address] 13 May, 2010 [facility] [address] [id number] [place] [address] 25[address] [address], [address] [facility] [address] [id number] [place] [address] 10 May, 2010 [facility] [place] [facility] [address] [id number] [place] [address] 25[address] [address], [address] [facility] [place] [facility] [address] [id number] [place] [address] 254 29 Apr, 2010 [facility] [place] [facility] [address] [id number] [place] [address] 2549 26 Apr, 2010 [facility] [place] [facility] [address] [id number] [place] [address]- 2548 19 Apr, 2010 [facility] [place] [facility] [address] [id number] [place] [address] 2543 Apr, [facility] [address] [facility] [id number], [place] [address] Apr, [facility] [address] [facility] [id number][place] [address] Apr, [facility] [address] [facility] [id number], [place] [address] Apr, [facility] [address] [facility] [id number], [place] [address] Apr, [facility] [address] [facility] [id number][place] [address] Apr, [facility] [address] [facility] [id number][place] [address] Apr, [facility] [address] [facility] [id number], [place] [address] Mar, [facility] [address] [facility] [id number], [place] [address] Mar, [facility] [address] [facility] [id number], [place] [address] Mar, [facility] [id number], [place] [address] Mar, [facility] [id number], [place] [address] Mar, [facility] [id number], [place] [address] Dec, [facility] [address] [facility] [id number], [place] [address] Nov, IMMUNIZATIONS No Known Immunizations SOCIAL HISTORY Never Assessed REASON FOR VISIT Change in Coumadin PLAN OF CARE VITAL SIGNS MEDICATIONS Medication Instructions Dosage Frequency Start Date End Date Duration Status Coumadin 1 MG Orally Once a day 1mg on Saturday and Saturday, and 1.5mg on Saturday, Saturday, Saturday, and Saturday 24h Active RESULTS No Results PROCEDURES No [...] surgery and skin graft, cholecysectomy Hospitalization [place] [facility] Hospitalization History [facility] 08/2017
--- OUTSIDE RECORDS SUMMARY | 2018-02-04 13:23 | XMS REPORT ---
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 Name Role Phone NAHOMY BETH Unavailable PROBLEMS Type Condition ICD9-CM Code YCM33-[place] Code Onset Dates Condition Status SNOMED Code Problem History of colon polyps Z86.010 Active 782120318 Problem Factitious disorder imposed on self, recurrent episode F68.10 Active 58522865 Problem Anemia, unspecified type D64.9 Active 883099567 Problem Allergic state, subsequent encounter T78.40XD Active 938320767 Problem Unspecified psychosis not due to a substance or known physiological condition F29 Active 48904470 Problem Age-related osteoporosis without current pathological fracture M81.0 Active 69715216 Problem Personality disorder F60.9 Active 61532718 Problem Iron deficiency anemia, unspecified iron deficiency anemia type D50.9 Active 59410821 Problem Anxiety F41.9 Active 07695446 Problem History of CVA with residual deficit I69.30 Active 752840614 Problem Insomnia, unspecified type G47.00 Active 226722626 Problem Perennial allergic rhinitis, unspecified allergic rhinitis trigger J30.89 Active 147768985 Problem Seizure disorder G40.909 Active 020855554 Problem Chronic kidney disease, unspecified stage N18.9 Active 186347393 Problem Back pain M54.9 Active 502551367 Problem Gastroesophageal reflux disease without esophagitis K21.9 Active 560427894 ALLERGIES Substance Reaction Event Type Date Status Vibramycin Unknown Drug Allergy Jun, Active Tegretol Unknown Drug Allergy Jun, Active SulfADIAZINE Unknown Drug Allergy Jun, Active Penicillin V Potassium Unknown Drug Allergy Jun, Active Darvocet A500 Unknown Drug Allergy Jun, Active Codeine Phosphate Unknown Drug Allergy Jun, Active Aspirin Unknown Drug Allergy Jun, Active ENCOUNTERS Encounter Location Date Diagnosis [facility] [address] [address] Dec, [facility] [address], [place] [address] Dec, [facility] [address], [place] [address] 7[address] Nov, [facility] [id number] [place] [address] 44928- 8529 Nov, Unspecified psychosis not due to a substance or known physiological condition F29 ; Personality disorder F60.9 and Factitious disorder imposed on self, recurrent episode F68.10 [facility] [id number] [place] [address] 04955- 5697 October, [facility] [address] [address] 48[address] October, [facility] [id number] [place] [address] 69591- 5695 October, Unspecified psychosis not due to a substance or known physiological condition F29 ; Personality disorder F60.9 and Factitious disorder imposed on self, recurrent episode F68.10 [facility] [address], [place] [address] October, Back pain M54.9 [facility] [address] [address] October, Seizure disorder G40.909 ; Back pain M54.9 and Allergic state, subsequent encounter T78.40XD [facility] [address] [address] 96[address] October, [facility] [address], [place] [address]- 4884 Sep, Back pain M54.9 [facility] [id number] [address] 5[address] Sep, Unspecified psychosis not due to a substance or known physiological condition F29 ; Personality disorder F60.9 and Factitious disorder imposed on self, recurrent episode F68.10 [facility] [address] [address] 250[address] Sep, [facility] [address], [place] [address] 06[address] Sep, [facility] [address], [place] [address] 9418 Sep, [facility] [id number] [place] [address] 13878- 4922 Sep, [facility] [id number] [place] [address] 52039- 2529 Aug, [facility] [id number] [place] [address] 01798- 5065 Aug, Back pain M54.9 [facility] [id number] [place] [address] 74954- 5712 Aug, Factitious disorder imposed on self, recurrent episode F68.10 ; Personality disorder F60.9 ; Insomnia, unspecified type G47.00 and Anxiety F41.9 [facility] [address], [place] [address] 74[address] 08 Aug, 2017 Back pain M54.9 ; Iron deficiency anemia, unspecified iron deficiency anemia type D50.9 ; Chronic kidney disease, unspecified stage N18.9 and Breast cancer screening Z12.31 [facility] [id number] [address] Jul, Back pain M54.9 [facility] [id number] [id number] Jul, [facility] [id number] [id number] Jul, [facility] [id number] [address] Jun, Back pain M54.9 [facility] [id number] [address] Jun, [facility] [id number] [place] [address] [id number] Jun, Back pain M54.9 [facility] [address], [place] [address]- 5[address] Jun, Back pain M54.9 ; Seizure disorder G40.909 and Age-related osteoporosis without current pathological fracture M81.0 [facility] [id number] [id number] May, [facility] [id number] [place] [address] 02008- 1763 May, Back pain M54.9 [facility] [address], [place] [address] 35[address] Apr, Back pain M54.9 ; Encounter for immunization Z23 ; Gastroesophageal reflux disease without esophagitis K21.9 ; Age-related osteoporosis without current pathological fracture M81.0 and Chronic pruritus L29.9 [facility] [address], [place] [address] 9[address] Apr, History of CVA with residual deficit I69.30 [facility] [address], [place] [address]- 3506 Apr, Factitious disorder imposed on self, recurrent episode F68.10 and Personality disorder F60.9 [facility] [id number] [address] Apr, Back pain M54.9 [facility] [address], [place] [address] 53[address] Mar, Factitious disorder imposed on self, recurrent episode F68.10 [facility] [address], [place] [address]- 30[address] Mar, [facility] [id number] [place] [address] [id number] Mar, [facility] [id number] [address] Mar, Back pain M54.9 [facility] [id number] [place] [address] 82009- 2346 Mar, Back pain M54.9 ; Seizure disorder G40.909 and Age-related osteoporosis without current pathological fracture M81.0 [facility] [id number] [place] [address] 93314- 5844 Feb, History of CVA with residual deficit I69.30 [facility] [id number] [place] [address] 35844- 6339 Feb, Factitious disorder imposed on self, recurrent episode F68.10 and Personality disorder F60.9 [place] [facility] [id number] [place] [address] 20243- 0578 Feb, Back pain M54.9 [facility] [id number] [place] [address] 98127- 2656 Feb, [facility] [id number] [place] [address] 69496- 3374 Jan, [facility] [address] [id number] Jan, Age- related osteoporosis without current pathological fracture M81.0 and Allergic state, subsequent encounter T78.40XD [facility] [address] [place] [address] 08250- 0277 Jan, Factitious disorder imposed on self, recurrent episode F68.10 and Personality disorder F60.9 [facility] [id number] [place] [address] 55743- 6433 Dec, Back pain M54.9 [facility] [address] [place] [address] 78113- 2949 Dec, Personality disorder F60.9 and Factitious disorder imposed on self, recurrent episode F68.10 [facility] [id number] [place] [address] [place] [id number] Dec, Back pain M54.9 [facility] [address] [id number] [id number] Dec, [facility] [id number] [address] Dec, [facility] [address], [place] [address]- 3236 Dec, [facility] [address] [address]149 Nov, [facility] [address], [place] [address]- 0701 Nov, Back pain M54.9 ; Anemia, unspecified type D64.9 and History of colon polyps Z86.010 [facility] [address], [place] [address]- 0213 Nov, Back pain M54.9 [facility] [id number] [address] October, Back pain M54.9 [facility] [address] [place] [address] [id number] October, Back pain M54.9 and Gastroesophageal reflux disease without esophagitis K21.9 [facility] [id number] [address] Sep, [facility] [address] [id number] [address]- 6634 Sep, [facility] [address] [id number], [place] [address]- 0982 Sep, [facility] [address], [place] [address]- 9922 Sep, [facility] [address] [id number], [place] [address]- 5977 Sep, [facility] [address] [id number], [place] [address]- 0711 Sep, Seizure disorder G40.909 [facility] [address], [place] [address]- 0734 Sep, Back pain M54.9 [facility] [address] [id number], [place] [address]- 6336 Sep, [facility] [address], [place] [address]- 0348 Aug, Back pain M54.9 [facility] [address] [facility] [id number] [address]- 9556 Aug, Seizure disorder G40.909 [facility] [id number] [place] [address] [id number] Aug, [facility] [id number] [place] [address] [id number] 16 Aug, 2016 Back pain M54.9 [facility] [id number] [place] [address] [id number] 14 Aug, 2016 Back pain M54.9 [facility] [id number] [address] 06 Aug, 2016 Back pain M54.9 [facility] [address] [id number] Jul, Weakness R53.1 [facility] [address], [place] [address]- 4228 Jul, Seizure disorder G40.909 [facility] [address], [place] [address]- 6608 Jul, [facility] [address], [place] [address]- 5265 Jul, Breast cancer screening Z12.39 [facility] [address], [place] [address]- 2028 Jul, [facility] [address], [place] [address]- 6060 Jul, [facility] [address], [place] [address]- 8751 Jul, [facility] [id number] [place] [address] 078394- 5246 Jul, Seizure disorder G40.909 ; Fatigue, unspecified type R53.83 ; Perennial allergic rhinitis, unspecified allergic rhinitis trigger J30.89 and Chronic kidney disease, unspecified stage N18.9 [facility] [id number] [place] [address] 74597- 8302 Jul, [facility] [id number] [place] [address] 57442- 2163 Jul, Seizure disorder G40.909 [facility] [id number] [place] [address] 03000- 7136 Jun, [facility] [id number] [place] [address] 57631- 4513 Jun, [facility] [address] [id number] Jun, Perennial allergic rhinitis, unspecified allergic rhinitis trigger J30.89 [facility] [id number] [place] [address] [id number] Jun, [facility] [address], [place] [address]- 7409 Jun, Seizure disorder G40.909 [facility] [id number] [place] [address] [id number] Jun, [facility] [id number] [place] [address] [id number] May, [facility] [id number] [place] [address] 19806- 3486 May, [facility] [id number] [place] [address] 30641- 2768 May, [facility] [id number] [place] [address] 49483- 4368 May, [facility] [id number] [place] [address] 00026- 0361 May, History of CVA with residual deficit I69.30 [facility] [id number] [place] [address] 71847- 6767 May, [facility] [id number] [place] [address] 90834- 1756 May, [facility] [id number] [place] [address] 92851- 0588 May, [facility] [id number] [place] [address] 82472- 4382 May, Seizure disorder G40.909 [facility] [id number] [place] [address] 21925- 8300 May, [facility] [address] [place] [address] May, Back pain M54.9 and Seizure disorder G40.909 [facility] [id number] [place] [address] 57200- 0457 Apr, [facility] [id number] [place] [address] 01726- 3887 Apr, Back pain M54.9 [facility] [id number] [place] [address] 66622- 9281 Mar, [facility] [address] [place] [address] Mar, Insomnia, unspecified type G47.00 [facility] [id number] [place] [address] 83207- 1095 Mar, [facility] [id number] [place] [address] 92598- 0750 Feb, [facility] [id number] [place] [address] 25244- 6199 Feb, [facility] [address], [place] [address]- 4657 Feb, [facility] [id number] [place] [address] 77095- 0290 Jan, [facility] [id number] [place] [address] 12713- 3659 Jan, [facility] [address] [place] [address] Jan, Seizure disorder G40.909 and Back pain M54.9 [facility] [id number] [place] [address] 19458- 9273 Dec, [facility] [id number] [place] [address] 74287- 0765 Dec, [facility] [id number] [place] [address] 83334- 0240 Dec, [facility] [id number] [place] [address] 97968- 9208 Nov, [facility] [id number] [place] [address] 10188- 0470 Nov, [facility] [id number] [place] [address] 67385- 1614 Nov, Back pain M54.9 [facility] [id number] [place] [address] 41523- 1679 October, [facility] [id number] [place] [address] 81727- 4724 October, Back pain M54.9 [facility] [id number] [place] [address] 04458- 1769 October, Seizure disorder G40.909 and B12 deficiency E53.8 [facility] [address], [place] [address]- 6541 Sep, History of CVA with residual deficit I69.30 [facility] [address], [place] [address]- 7139 18 Sep, 2015 [facility] [id number] [place] [address] 99080- 0978 Sep, [facility] [id number] [place] [address] 20757- 7617 Sep, Back pain M54.9 [facility] [id number] [place] [address] 72888- 6326 Sep, Seizure disorder G40.909 [facility] [id number] [place] [address] 62731- 2557 Aug, Back pain M54.9 [facility] [id number] [place] [address] 74636- 8278 18 Aug, 2015 Seizure disorder G40.909 [facility] [id number] [place] [address] 16752- 2651 16 Aug, 2015 Back pain M54.9 [facility] [address] [place] [address] 09495- 1200 14 Aug, 2015 Heart failure, unspecified I50.9 [facility] [address] [place] [address] 41817- 4081 14 Aug, 2015 Medication monitoring encounter Z51.81 [facility] [address], [place] [address]- 7018 15 Jul, 2015 [facility] [id number] [place] [address] 10623- 0916 09 Jul, 2015 Seizure disorder G40.909 [facility] [address] [place] [address] 38871- 8100 05 Jul, 2015 Back pain M54.9 [facility] [address] [place] [address] 64454- 0022 Jun, [facility] [id number] [place] [address] 15510- 3410 Jun, [facility] [address], [place] [address]- 7412 Jun, Mental status change R41.82 ; History of CVA with residual deficit I69.30 ; Back pain M54.9 and Seizure disorder G40.909 [facility] [address], [place] [address]- 8291 Jun, [facility] [id number] [place] [address] 10182- 3671 May, [facility] [id number] [place] [address] 72984- 9736 Apr, [facility] [id number] [place] [address] 20895- 7532 Apr, Medication monitoring encounter Z51.81 [facility] [id number] [place] [address] 98391- 8035 Mar, Vomiting R11.10 [facility] [id number] [place] [address] 03520- 2682 Mar, [facility] [id number] [place] [address] 44180- 2569 Feb, [facility] [address], [place] [address]- 6505 Feb, UTI (urinary tract infection) 599.0 [facility] [address], [place] [address]- 9089 Jan, [facility] [address], [place] [address]- 0529 Jan, [facility] [id number] [place] [address] 635317- 4039 Jan, [facility] [address], [place] [address]- 0227 Dec, [facility] [id number] [place] [address] 26871- 2546 Dec, [facility] [place] [facility] [address] [id number] [place] [address]- 8564 Dec, [facility] [place] [facility] [address] [id number] [place] [address]- 4126 Dec, [facility] [place] [facility] [address] [facility] [id number] [place] [address]- 2346 Nov, UNKNOWN Nov, [facility] [place] [facility] [address] [id number] [place] [address] 2546 October, [facility] [place] [facility] [address] [id number] [place] [address]- 9311 Sep, [facility] [place] [facility] [address] [id number] [place] [address]- 1546 Sep, [facility] [place] [facility] [address] [id number] [place] [address]- 5207 Aug, [facility] [place] [facility] [address] [id number] [place] [address] Aug, [facility] [place] [facility] [address] [id number] [place] [address] Jul, [facility] [place] [facility] [address] [facility] [id number] [place] [address] Jul, [facility] [place] [facility] [address] [id number] [place] [address] Jul, [facility] [place] [facility] [address] [id number] [place] [address] Jul, [facility] [place] [facility] [address] [id number] [place] [address] Jul, [facility] [place] [facility] [address] [id number] [place] [address] Jun, [facility] [place] [facility] [address] [id number] [place] [address] Jun, [facility] [place] [facility] [address] [id number] [place] [address] Jun, [facility] [place] [facility] [address] [id number] [place] [address] Jun, [facility] [place] [facility] [address] [id number] [place] [address] Jun, [facility] [place] [facility] [address] [id number] [place] [address] Jun, [facility] [place] [facility] [address] [id number] [place] [address] Jun, [facility] [place] [facility] [address] [id number] [place] [address] Jun, [facility] [place] [facility] [address] [id number] [place] [address] Jun, [facility] [place] [facility] [address] [id number] [place] [address] Jun, [facility] [place] [facility] [address] [id number] [place] [address] Jun, [facility] [place] [facility] [address] [id number] [place] [address] Jun, [facility] [place] [facility] [address] [id number] [place] [address] Jun, [facility] [place] [facility] [address] [id number], [place] [address] Jun, [facility] [place] [facility] [address] [id number] [place] [address] Jun, [facility] [place] [facility] [address] [id number] [place] [address] Jun, [facility] [place] [facility] [address] [id number] [place] [address] Jun, [facility] [place] [facility] [address] [id number], [place] [address] Jun, [facility] [address] [id number] [place] [address] May, [facility] [address] [id number] [place] [address] May, [facility] [address] [address] [id number] [place] [address] May, [facility] [address] [id number] [place] [address] 6[address] May, [facility] [address] [id number] [place] [address] 9304 May, [facility] [address] [id number] [place] [address] 4021 May, [facility] [address] [id number] [place] [address]- 3357 May, [facility] [address] [id number] [place] [address]- 8483 May, [facility] [address] [id number] [place] [address]- 1370 May, [facility] [address] [id number] May, [facility] [address] [id number], [place] [address] May, [facility] [place] [facility] [address] [id number], [place] [address] May, [facility] [place] [facility] [address] [id number] [place] [address] 8049 May, [facility] [place] [facility] [address] [id number] [place] [address]- 5635 Apr, [facility] [place] [facility] [address] [id number] [place] [address]- 9632 Apr, [facility] [place] [facility] [address] [id number] [place] [address]- 3383 Apr, [facility] [place] [facility] [address] [id number] [place] [address]- 8955 Apr, [facility] [place] [facility] [address] [id number] [place] [address] 3103 Apr, [facility] [place] [facility] [address] [id number] [place] [address]- 1672 Apr, [facility] [place] [facility] [address] [id number] [place] [address] 9327 Mar, [facility] [place] [facility] [address] [id number] [place] [address]- 3978 Mar, [facility] [place] [facility] [address] [id number] [place] [address]- 9567 Mar, [facility] [place] [facility] [address] [id number] [place] [address]- 6922 Mar, [facility] [place] [facility] [address] [id number] [place] [address]- 9632 Mar, [facility] [place] [facility] [address] [id number] [place] [address]- 9511 Mar, [facility] [place] [facility] [address] [facility] [id number] [place] [address]- 1495 24 Feb, 2014 [facility] [place] [facility] [address] [id number] [place] [address]- 3384 24 Feb, 2013 [facility] [place] [facility] [address] [id number] [place] [address]- 5288 23 Feb, 2013 [facility] [place] [facility] [address] [id number] [place] [address]- 0364 23 Feb, 2014 [facility] [place] [facility] [address] [id number] [place] [address]- 7446 19 Feb, 2013 [facility] [place] [facility] [address] [id number] [place] [address]- 3046 Feb, [facility] [place] [facility] [address] [id number] [place] [address]- 8626 Feb, [facility] [place] [facility] [address] [id number] [place] [address]- 8516 Feb, [facility] [place] [facility] [address] [id number] [place] [address]- 5816 Feb, [facility] [place] [facility] [address] [id number] [place] [address]- 1021 Feb, [facility] [address] [facility] [place] [id number] Feb, [facility] [place] [facility] [address] [id number] [place] [address]- 6564 Feb, [facility] [place] [facility] [address] [id number] [place] [address]- 0753 Jan, [facility] [place] [facility] [address] [id number] [place] [address]- 2526 Jan, [facility] [place] [facility] [address] [id number] [place] [address] 3196 Dec, [facility] [place] [facility] [address] [id number] [place] [address]- 0937 Dec, [facility] [place] [facility] [address] [id number] [place] [address] 3961 Dec, [facility] [place] [facility] [address] [id number] [place] [address]- 7257 Dec, [facility] [place] [facility] [address] [id number] [place] [address]- 7868 Dec, [facility] [place] [facility] [address] [id number] [place] [address]- 6866 Dec, [facility] [place] [facility] [address] [id number] [place] [address]- 1146 Dec, [facility] [place] [facility] [address] [id number] [place] [address]- 5050 Dec, [facility] [place] [facility] [address] [id number] [place] [address]- 9940 Dec, [facility] [place] [facility] [address] [id number] [place] [address]- 7454 Dec, [facility] [place] [facility] [address] [id number] [place] [address]- 3955 Nov, [facility] [place] [facility] [address] [id number] [place] [address]- 1342 Nov, [facility] [place] [facility] [address] [id number] [place] [address]- 5724 Nov, [facility] [place] [facility] [address] [id number] [place] [address]- 2718 Nov, [facility] [place] [facility] [address] [id number] [place] [address]- 3949 Nov, [facility] [place] [facility] [address] [id number] [place] [address]- 9310 Nov, [facility] [place] [facility] [address] [id number] [place] [address]- 9717 Nov, [facility] [place] [facility] [address] [id number] [place] [address]- 8832 Nov, [facility] [place] [facility] [address] [id number] [place] [address]- 0062 Nov, [facility] [place] [facility] [address] [id number], [place] [address] 2413 Nov, [facility] [place] [facility] [address] [id number] [place] [address]- 9895 Nov, [facility] [place] [facility] [address] [id number] [place] [address]- 5383 Nov, [facility] [place] [facility] [address] [id number] [place] [address]- 0083 Nov, [facility] [place] [facility] [address] [id number] [place] [address]- 5872 Nov, [facility] [place] [facility] [address] [id number] [place] [address] 8181 October, [facility] [place] [facility] [address] [id number] [place] [address]- 8057 October, [facility] [place] [facility] [address] [id number] [place] [address]- 6290 October, [facility] [place] [facility] [address] [id number] [place] [address]- 0169 October, [facility] [place] [facility] [address] [id number] [place] [address]- 6676 October, [facility] [place] [facility] [address] [id number] [place] [address]- 3094 October, [facility] [place] [facility] [address] [id number] [place] [address]- 0097 October, [facility] [place] [facility] [address] [id number] [place] [address]- 1646 October, [facility] [place] [facility] [address] [id number] [place] [address]- 6512 October, [facility] [place] [facility] [address] [id number] [place] [address]- 2996 October, [facility] [place] [facility] [address] [id number] [place] [address]- 9180 Sep, [facility] [place] [facility] [address] [id number] [place] [address]- 4797 Sep, [facility] [place] [facility] [address] [id number] [place] [address]- 5968 Sep, [facility] [place] [facility] [address] [id number] [place] [address]- 1400 Sep, [facility] [place] [facility] [address] [id number] [place] [address]- 0248 Sep, [facility] [place] [facility] [address] [id number] [place] [address]- 0007 Sep, [facility] [place] [facility] [address] [id number] [place] [address]- 8063 Sep, [facility] [place] [facility] [address] [id number] [place] [address]- 6905 Sep, [facility] [place] [facility] [address] [id number] [place] [address]- 4557 Sep, [facility] [place] [facility] [address] [id number] [place] [address]- 7971 Sep, [facility] [place] [facility] [address] [id number] [place] [address]- 9502 Aug, [facility] [place] [facility] [address] [id number] [place] [address]- 2999 Aug, [facility] [place] [facility] [address] [id number] [place] [address]- 5004 Aug, [facility] [place] [facility] [address] [id number] [place] [address]- 7016 Aug, [facility] [place] [facility] [address] [id number] [place] [address]- 0072 Aug, [facility] [place] [facility] [address] [id number] [place] [address]- 3859 Aug, [facility] [place] [facility] [address] [id number] [place] [address]- 1265 Aug, [facility] [place] [facility] [address] [id number] [place] [address]- 8256 Aug, [facility] [place] [facility] [address] [id number] [place] [address]- 3639 Aug, [facility] [place] [facility] [address] [id number] [place] [address]- 5948 Jul, [facility] [place] [facility] [address] [id number] [place] [address]- 4874 Jul, 2013 [facility] [place] [facility] [address] [id number] [place] [address]- 6886 Jul, [facility] [place] [facility] [address] [id number] [place] [address]- 2546 Jul, 2013 [facility] [place] [facility] [address] [id number] [place] [address]- 4526 Jul, [facility] [place] [facility] [address] [id number] [place] [address]- 3683 Jul, 2013 [facility] [place] [facility] [address] [id number] [place] [address]- 0146 Jul, [facility] [place] [facility] [address] [id number] [place] [address]- 0636 Jul, [facility] [place] [facility] [address] [id number] [place] [address]- 8078 Jul, 2013 [facility] [place] [facility] [address] [id number] [place] [address]- 2548 Jul, [facility] [place] [facility] [address] [id number] [place] [address]- 7825 Jul, [facility] [place] [facility] [address] [facility] [id number] [place] [address]- 5058 Jul, [facility] [place] [facility] [address] [facility] [id number] [place] [address] 2546 Jul, [facility] [place] [facility] [address] [facility] [id number] [place] [address]- 254 Jul, [facility] [place] [facility] [address] [id number] [place] [address]- 9666 Jul, [facility] [place] [facility] [address] [id number] [place] [address]- 2546 Jul, [facility] [place] [facility] [address] [facility] [id number] [place] [address]- 9129 Jun, [facility] [address] [id number] [place] [address]- 3674 Jun, [facility] [place] [facility] [address] [id number] [place] [address]- 2176 Jun, [facility] [place] [facility] [address] [id number] [place] [address]- 7380 Jun, [facility] [place] [facility] [address] [id number] [place] [address]- 6339 Jun, [facility] [place] [facility] [address] [id number] [place] [address]- 1622 Jun, [facility] [place] [facility] [address] [id number] [place] [address]- 8632 May, [facility] [place] [facility] [address] [id number] [place] [address]- 4775 May, [facility] [place] [facility] [address] [id number] [place] [address]- 5963 May, [facility] [place] [facility] [address] [id number] [place] [address]- 3427 May, [facility] [place] [facility] [address] [id number] [place] [address]- 6668 Apr, [facility] [place] [facility] [address] [id number] [place] [address]- 6784 Apr, [facility] [place] [facility] [address] [id number], [place] [address]- 2712 Apr, [facility] [place] [facility] [address] [id number] [place] [address]- 1208 Apr, [facility] [place] [facility] [address] [id number] [place] [address]- 7541 Apr, [facility] [place] [facility] [address] [id number] [place] [address]- 2410 Apr, [facility] [place] [facility] [address] [id number] [place] [address]- 8672 19 Apr, 2013 [facility] [place] [facility] [address] [id number] [place] [address]- 9207 19 Apr, 2013 [facility] [place] [facility] [address] [id number] [place] [address]- 7848 18 Apr, 2013 [facility] [place] [facility] [address] [id number] [place] [address]- 5306 18 Apr, 2013 [facility] [place] [facility] [address] [id number] [place] [address]- 8721 Apr, [facility] [place] [facility] [address] [id number] [place] [address]- 5444 Apr, [facility] [place] [facility] [address] [id number] [place] [address]- 5832 28 Mar, 2013 [facility] [place] [facility] [address] [id number] [place] [address]- 6320 28 Mar, 2013 [facility] [place] [facility] [address] [id number] [place] [address]- 4486 16 Mar, 2013 [facility] [place] [facility] [address] [id number] [place] [address]- 2677 16 Mar, 2013 [facility] [place] [facility] [address] [facility] [id number] [place] [address]- 9591 15 Mar, 2013 [facility] [place] [facility] [address] [id number] [place] [address]- 9197 15 Mar, 2013 [facility] [place] [facility] [address] [id number], [place] [address]- 2542 27 Feb, 2012 [facility] [place] [facility] [address] [id number] [place] [address]- 8647 25 Feb, 2013 [facility] [place] [facility] [address] [id number] [place] [address]- 6022 25 Feb, 2013 [facility] [place] [facility] [address] [id number] [place] [address]- 6372 23 Feb2012 [facility] [place] [facility] [address] [id number] [place] [address]- 2048 17 Feb, 2013 [facility] [place] [facility] [address] [id number] [place] [address]- 7491 Feb, [facility] [place] [facility] [address] [id number] [place] [address] 2542 04 Feb, 2013 [facility] [place] [facility] [address] [id number] [place] [address]- 8233 Jan, [facility] [place] [facility] [address] [id number] [place] [address]- 7335 Jan, [facility] [place] [facility] [address] [id number] [place] [address]- 0517 Jan, [facility] [place] [facility] [address] [id number] [place] [address]- 8801 Jan, [facility] [place] [facility] [address] [id number] [place] [address]- 2496 Jan, [facility] [place] [facility] [address] [id number] [place] [address]- 7980 Jan, [facility] [place] [facility] [address] [id number] [place] [address]- 2452 Jan, [facility] [place] [facility] [address] [id number] [place] [address]- 2488 Dec, [facility] [place] [facility] [address] [id number] [place] [address]- 1547 Dec, [facility] [place] [facility] [address] [id number] [place] [address]- 9675 Dec, [facility] [place] [facility] [address] [id number] [place] [address]- 8758 Dec, [facility] [place] [facility] [address] [id number] [place] [address]- 0904 Dec, [facility] [place] [facility] [address] [id number] [place] [address]- 7129 Dec, [facility] [address] [id number] [place] [address]- 4653 Nov, [facility] [place] [facility] [address] [id number] [place] [address]- 5282 Nov, [facility] [address] [id number] [place] [address]- 4173 Nov, [facility] [place] [facility] [address] [id number] [place] [address]- 6450 Nov, [facility] [address] [id number] [place] [address]- 5835 October, [facility] [address] [id number] [place] [address]- 9482 October, [facility] [address] [id number] [place] [address]- 4899 October, [facility] [place] [facility] [address] [id number] [place] [address]- 1127 October, [facility] [address] [id number] [place] [address]- 6774 Sep, [facility] [place] [facility] [address] [id number] [place] [address]- 7234 Sep, [facility] [place] [facility] [address] [id number] [place] [address]- 7270 16 Sep, 2012 [facility] [place] [facility] [address] [id number], [place] [address]- 1933 Sep, [facility] [place] [facility] [address] [id number] [place] [address]- 6604 Sep, [facility] [place] [facility] [address] [id number] [place] [address]- 0405 Sep, [facility] [place] [facility] [address] [id number] [place] [address]- 2906 Sep, [facility] [place] [facility] [address] [id number] [place] [address]- 2546 02 Sep, 2012 [facility] [address] [id number] [place] [address]- 0686 13 Aug, 2012 [facility] [place] [facility] [address] [id number] [place] [address]- 2546 13 Aug, 2012 [facility] [address] [id number] [place] [address]- 4046 05 Aug, 2012 [facility] [place] [facility] [address] [id number] [place] [address]- 2546 18 Jul, 2012 [facility] [address] [id number] [place] [address]- 3346 08 Jul, 2012 [facility] [place] [facility] [address] [id number] [place] [address]- 2546 07 Jul, 2012 [facility] [place] [facility] [address] [id number] [place] [address] 2546 06 Jul, 2012 [facility] [address] [id number] [place] [address]- 8776 05 Jul, 2012 [facility] [place] [facility] [address] [id number] [place] [address]- 5196 Jun, [facility] [address] [facility] [id number] [place] [address] 2546 Jun, [facility] [place] [facility] [address] [id number] [place] [address]- 8066 Jun, [facility] [place] [facility] [address] [id number] [place] [address]- 2549 May, [facility] [place] [facility] [address] [id number] [place] [address]- 3296 May, [facility] [place] [facility] [address] [facility] [id number] [place] [address]- 2546 May, [facility] [place] [facility] [address] [facility] [id number] [place] [address]- 5203 May, [facility] [place] [facility] [address] [id number] [place] [address]- 1711 May, [facility] [place] [facility] [address] [id number] [place] [address]- 9130 May, [facility] [place] [facility] [address] [id number] [place] [address]- 9443 May, [facility] [place] [facility] [address] [id number] [place] [address]- 5787 Apr, [facility] [place] [facility] [address] [id number] [place] [address]- 9035 Apr, [facility] [place] [facility] [address] [id number] [place] [address]- 6409 Apr, [facility] [place] [facility] [address] [id number] [place] [address]- 0127 Apr, [facility] [place] [facility] [address] [id number] [place] [address]- 8848 Apr, [facility] [place] [facility] [address] [id number] [place] [address]- 9184 Apr, [facility] [place] [facility] [address] [id number], [place] [address]- 9611 Apr, [facility] [place] [facility] [address] [id number], [place] [address]- 3258 Apr, [facility] [place] [facility] [address] [id number], [place] [address]- 1507 Apr, [facility] [place] [facility] [address] [id number] [place] [address]- 6155 Apr, [facility] [place] [facility] [address] [id number], [place] [address]- 7485 Apr, [facility] [place] [facility] [address] [id number], [place] [address]- 1585 Mar, [facility] [place] [facility] [address] [id number] [place] [address]- 9807 26 Mar, 2011 [facility] [place] [facility] [address] [id number] [place] [address]- 1124 Mar, 2011 [facility] [place] [facility] [address] [id number] [place] [address]- 7596 Mar, 2011 [facility] [place] [facility] [address] [id number] [place] [address] Mar, 2011 [facility] [place] [facility] [address] [id number] [place] [address] Mar, 2011 [facility] [place] [facility] [address] [id number] [place] [address] Mar, [facility] [place] [facility] [address] [id number] [place] [address] Mar, 2011 [facility] [place] [facility] [address] [id number] [place] [address]182 16 Mar, 2011 [facility] [place] [facility] [address] [id number] [place] [address] 4726 16 Mar, 2012 [facility] [place] [facility] [address] [id number] [place] [address] 04 Mar, 2012 [facility] [place] [facility] [address] [id number] [place] [address] 28 Sep, 2011 [facility] [place] [facility] [address] [id number] [place] [address]86 27 Sep, 2011 [facility] [place] [facility] [address] [id number] [address] 27 Sep, 2011 [facility] [place] [facility] [address] [id number] [place] [address] 26 Sep, 2011 [facility] [place] [facility] [address] [id number] [place] [address] 2546 24 Sep, 2011 [facility] [place] [facility] [address] [id number], [place] [address] 19 Feb, 2012 [facility] [place] [facility] [address] [id number] [place] [address] Feb, [facility] [place] [facility] [address] [id number] [place] [address] Feb, [facility] [place] [facility] [address] [id number] [place] [address]- 4784 Feb, [facility] [place] [facility] [address] [id number] [place] [address] 7814 Jan, [facility] [place] [facility] [address] [id number] [place] [address] 3069 Jan, [facility] [place] [facility] [address] [id number] [place] [address]- 7265 Jan, [facility] [place] [facility] [address] [id number] [place] [address] 3488 Jan, [facility] [place] [facility] [address] [id number] [place] [address]198 Dec, [facility] [place] [facility] [address] [id number] [place] [address]- 59[address] Dec, [facility] [place] [facility] [address] [id number] [place] [address]- 66[address] Dec, [facility] [place] [facility] [address] [id number] [place] [address]- 49[address] Dec, [facility] [place] [facility] [address] [id number] [place] [address]- 59[address] Dec, [facility] [place] [facility] [address] [id number] [place] [address] Dec, [facility] [place] [facility] [address] [id number] [place] [address]- 4564 Dec, [facility] [place] [facility] [address] [id number] [place] [address] 8424 Dec, [facility] [place] [facility] [address] [id number] [place] [address]- [address]056 Dec, [facility] [place] [facility] [address] [id number] [place] [address] 5261 Dec, [facility] [place] [facility] [address] [id number] [place] [address]555 Dec, [facility] [place] [facility] [address] [id number] [place] [address] 4548 Dec, [facility] [place] [facility] [address] [id number] [place] [address] 4[address] Dec, [facility] [place] [facility] [address] [id number] [place] [address]- 3656 Dec, [facility] [place] [facility] [address] [id number] [place] [address]- 1644 Nov, [facility] [place] [facility] [address] [id number] [place] [address]- [address]228 Nov, [facility] [place] [facility] [address] [id number] [place] [address]- 9988 Nov, [facility] [place] [facility] [address] [id number] [place] [address] 8686 Nov, [facility] [place] [facility] [address] [id number] [place] [address] 4138 Nov, [facility] [place] [facility] [address] [id number] [place] [address] 8041 Nov, [facility] [place] [facility] [address] [id number] [place] [address] 9207 October, [facility] [place] [facility] [address] [id number] [place] [address]- 4155 October, [facility] [place] [facility] [address] [id number] [place] [address] 8823 October, [facility] [place] [facility] [address] [id number] [place] [address]- 2411 October, [facility] [place] [facility] [address] [id number] [place] [address]- [address]161 19 Sep, 2011 [facility] [address] [id number] [place] [address] 7416 17 Sep, 2011 [facility] [address] [id number] [place] [address]- 7816 13 Sep, 2011 [facility] [address] [id number] [place] [address]- 6946 09 Sep, 2011 [facility] [address] [id number] [place] [address] 2546 03 Sep, 2011 [facility] [address] [id number] [place] [address]- 1717 26 Aug, 2011 [facility] [address] [id number] [place] [address]- 0977 26 Aug, 2011 [facility] [address] [id number] [place] [address]- 9796 Aug, [facility] [address] [id number] [place] [address]- 8511 20 Aug, 2011 [facility] [address] [id number] [place] [address]- 4030 Aug, [facility] [address] [id number] [place] [address]- 5526 Aug, [facility] [address] [id number] [place] [address]- 7546 Aug, [facility] [address] [id number] [place] [address]- 4006 16 Jul, 2011 [facility] [place] [facility] [address] [id number] [place] [address]- 2846 16 Jul, 2011 [facility] [address] [id number] [place] [address]- 4536 15 Jul, 2011 [facility] [address] [id number] [place] [address]- 2104 Jul, [facility] [address] [id number] [place] [address]- 3985 Jun, [facility] [address] [id number] Jun, [facility] [address] [id number] [place] [address] 2066 Jun, [facility] [address] [id number] [place] [address]- [address]250 Jun, [facility] [address] [id number] [place] [address]- 7845 Jun, [facility] [address] [id number] [place] [address]- 8497 Jun, [facility] [address] [facility] [id number] [place] [address]- 8584 Jun, [facility] [address] [id number] [place] [address] Jun, [facility] [address] [id number] [place] [address] May[facility] [address] [id number] [place] [address] May, [facility] [address] [facility] [id number] [place] [address] May, [facility] [address] [id number] [place] [address] May, [facility] [address] [id number] [place] [address] May, [facility] [address] [id number] [place] [address] May, [facility] [address] [id number] [place] [address] May, [facility] [address] [id number] [place] [address] 29 Apr, 2011 [facility] [place] [facility] [address] [id number] [place] [address] 17 Apr, 2011 [facility] [place] [facility] [address] [id number] [place] [address] Apr, [facility] [place] [facility] [address] [id number] [place] [address] 27 Mar, 2011 [facility] [place] [facility] [address] [id number] [place] [address] 20 Mar, 2011 [facility] [place] [facility] [address] [id number] [place] [address] 14 Mar, 2011 [facility] [place] [facility] [address] [id number] [place] [address] 11 Mar, 2011 [facility] [place] [facility] [address] [id number] [place] [address] 10 Mar, 2011 [facility] [place] [facility] [address] [id number] [place] [address] 10 Mar, 2011 [facility] [place] [facility] [address] [id number] [place] [address] 10 Mar, 2011 [facility] [place] [facility] [address] [id number] [place] [address] Jan, [facility] [place] [facility] [address] [id number] [address] 27 May, 2010 [facility] [place] [facility] [address] [id number] [place] [address] 21 May, 2010 [facility] [place] [facility] [address] [id number] [place] [address] 13 May, 2010 [facility] [place] [facility] [address] [id number] [place] [address] 13 May, 2010 [facility] [place] [facility] [address] [id number] [place] [address] 10 May, 2010 [facility] [place] [facility] [address] [id number] [place] [address] 06 May, 2010 [facility] [address] [id number] [place] [address] 29 Apr, 2010 [facility] [place] [facility] [address] [id number] [place] [address] Apr, [facility] [place] [facility] [address] [id number] [place] [address] Apr, [facility] [place] [facility] [address] [id number] [place] [address] Apr, [facility] [place] [facility] [address] [facility] [id number] [place] [address], [place] [address] 15 Apr, 2010 [facility] [place] [facility] [address] [facility] [id number] [place] [address] Apr, [facility] [place] [facility] [address] [facility] [id number] [place] [address] Apr, [facility] [place] [facility] [address] [id number] [place] [address] Apr, [facility] [place] [facility] [address] [facility] [id number] [place] [address] Apr, [facility] [place] [facility] [address] [facility] [id number] [place] [address] Apr, [facility] [place] [facility] [address] [id number] [place] [address] Mar, [facility] [place] [facility] [address] [id number], [place] [address] Mar, [facility] [place] [facility] [address] [facility] [id number] [place] [address] Mar, [facility] [place] [facility] [address] [facility] [id number] [place] [address] Mar, [facility] [place] [facility] [address] [facility] [id number], [place] [address] Mar, [facility] [address] [facility] [id number] [place] [address] Dec, [facility] [address] [facility] [id number], [place] [address] Nov, IMMUNIZATIONS No Known Immunizations SOCIAL HISTORY Never Assessed REASON FOR VISIT Eye c/o----ThanhRTodd, would like med aids to be able to give eye gtts PLAN OF CARE Activity Details Follow Up 2 Months Reason: VITAL SIGNS Height 62 in 2017-06-25 Weight 107 lbs 2017-06-25 Temperature 98.0 degrees Fahrenheit 2017-06-25 Heart Rate 70 bpm 2017-06-25 Respiratory Rate 20 2017-06-25 Oximetry 98 % 2017-06-25 BMI 19.57 kg/m2 2017-06-25 Blood pressure systolic 142 mmHg 2017-06-25 Blood pressure diastolic 70 mmHg 2017-06-25 MEDICATIONS Medication Instructions Dosage Frequency Start Date End Date Duration Status Gabapentin 400 MG TAKE 1 CAPSULE BY MOUTH AT BEDTIME 30 Active Fioricet 50-300-40 MG Orally every 6 hrs 1 capsule as needed 6h Active Lipitor 40 MG Orally Once a day 1 tablet 24h Active Bisacodyl 10 MG Rectal Once a day 1 suppository as needed 24h Active Omeprazole Magnesium 20.6 (20 Base) MG Orally Once a day 1 capsule 24h Active Coumadin 1 MG Orally Once a day 1mg on Saturday and Saturday, and 1.5mg on Saturday, Saturday, Saturday, and Saturday 24h Active Fentanyl 75 MCG/HR Transdermal every 72 hours 1 patch to skin May, 30 days Active Zofran ODT 4 MG Orally every 8 hrs 1 tablet on the tongue and allow to dissolve 8h Active Melatonin 5 MG Orally at bedtime 1 tablet 30 days Active Tylenol 325 MG Orally every 6 hrs as needed for headache 2 tablets as needed Not-Taking Citalopram Hydrobromide 20 MG Orally Once a day 1 tablet 24h 030 days Active Phenytoin Sodium Extended 100 MG TAKE 1 CAPSULE BY MOUTH AT BEDTIME 30 Active Fexofenadine HCl 180 MG Orally Once a day 1 tablet 24h Active Lamotrigine 100 mg Orally 2 times a day 1 tablet 12h Active Folic Acid 1 MG TAKE 1 TABLET BY MOUTH EVERY DAY 30 Active Nitro-Dur 0.2 MG/HR Transdermal Once a day 1 patch to skin remove after 12 hours 24h Active Fbviiofqvd-UEVV-Gsqhicsl 50-300-40 MG TAKE 1 CAPSULE BY MOUTH EVERY SIX HOURS NEEDED 15 Not-Taking Hydrocortisone 2.5 % Externally every 24 hours as needed for dry skin 1 application to affected area Active Fluticasone Propionate 50 MCG/ACT INSTILL 1 SPRAY IN EACH NOSTRIL TWICE DAILY 30 Active Saline Mist Shiloh 0.65 % Nasally 1 spray in both nostrils every 4 hours 1 Shiloh Active Topamax 100 MG Orally Twice a day 1 tablet 12h Active MiraLax Active Restasis 0.05 % 1 DROP EACH EYE TWICE DAILY 30 Active Sodium Bicarbonate 650 MG Orally Once a day 1 tablet 24h Active Refresh Liquigel 1 % Ophthalmic 4 times a day 1 drop into affected eye as needed 6h Active Tussin Cough DM 100-10 MG/5ML Orally every 6 hrs as needed for cough 10 ml as needed Active Metoprolol Tartrate 25 MG Orally Twice a day 1 tablet with food 12h Active Ibuprofen 200 mg Orally every 8 hours as needed for headache 2 tablets Active Phenytoin 100 MG/4ML Orally at bedtime 150mg Active Vitamin D (Ergocalciferol) 50936 UNIT Orally 2 times a day every 7 days 1 capsule Active Clorazepate Dipotassium 3.75 MG Orally Twice a day 1` tablets 12h 28 Active Vitamin B-12 1000 MCG/ML Injection every 14 days 1 ml Active Flonase Allergy Relief Active Phenytoin 50 MG TAKE 1 TABLET BY MOUTH EVERY DAY 30 Active RESULTS No Results PROCEDURES Procedure Date Ordered Result Body Site MEASURE BLOOD OXYGEN LEVEL Jun 25, 2017 [facility] VISIT ESTABLISHED PATIENT Jun 25, 2017 INSTRUCTIONS MEDICATIONS ADMINISTERED No Known Medications [...] and skin graft, cholecysectomy Hospitalization History [facility] 12/2016 Hospitalization History [facility] 08/2017
--- OUTSIDE RECORDS SUMMARY | 2018-02-04 13:24 | XMS REPORT ---
Author Author NAHOMY BETH Organization [facility] Address [address] [place] [address] Care Team Providers Care Manager Acute Name Role Phone NAHOMY BETH Unavailable PROBLEMS Type Condition ICD9-CM Code IRT04-ZO Code Onset Dates Condition Status SNOMED Code Problem History of colon polyps Z86.010 Active 347556506 Problem Factitious disorder imposed on self, recurrent episode F68.10 Active 09329912 Problem Anemia, unspecified type D64.9 Active 593040301 Problem Allergic state, subsequent encounter T78.40XD Active 302544883 Problem Unspecified psychosis not due to a substance or known physiological condition F29 Active 66531659 Problem Age-related osteoporosis without current pathological fracture M81.0 Active 75197154 Problem Personality disorder F60.9 Active 01840646 Problem Iron deficiency anemia, unspecified iron deficiency anemia type D50.9 Active 39653739 Problem Anxiety F41.9 Active 89887198 Problem History of CVA with residual deficit I69.30 Active 428941275 Problem Insomnia, unspecified type G47.00 Active 655177648 Problem Perennial allergic rhinitis, unspecified allergic rhinitis trigger J30.89 Active 154780430 Problem Seizure disorder G40.909 Active 826017256 Problem Chronic kidney disease, unspecified stage N18.9 Active 860419921 Problem Back pain M54.9 Active 349772936 Problem Gastroesophageal reflux disease without esophagitis K21.9 Active 008405448 ALLERGIES No Information ENCOUNTERS Encounter Location Date Diagnosis [facility] [address] [facility] [id number], [place] [address] Dec, [facility] [address] [id number], [place] [address] Nov, [facility] [address] [id number], [place] [address] Nov, [place] [address], [place] [address] October, [facility] [id number] [place] [address] 32187- 7122 October, [facility] [address], [place] [address] October, Unspecified psychosis not due to a substance or known physiological condition F29 ; Personality disorder F60.9 and Factitious disorder imposed on self, recurrent episode F68.10 [facility] [address]00565[address], [place] [address] October, Back pain M54.9 [facility] [id number] [place] [address] 40529- 8776 October, Seizure disorder G40.909 ; Back pain M54.9 and Allergic state, subsequent encounter T78.40XD [facility] [address]00565[address], [place] [address] October, [facility] [address], [place] [address] 65[address] Sep, Back pain M54.9 [facility] [address], [place] [address] 99[address] Sep, Unspecified psychosis not due to a substance or known physiological condition F29 ; Personality disorder F60.9 and Factitious disorder imposed on self, recurrent episode F68.10 [facility] [address], [place] [address] 1461 Sep, [facility] [address] [id number], [place] [address] 1495 Sep, [facility] [address], [place] [address] 2300 Sep, [facility] [address] [id number], [place] [address]- 2568 Sep, [facility] [address] [address] Aug, [facility] [address] [address] Aug, Back pain M54.9 [facility] [id number] [address] Aug, Factitious disorder imposed on self, recurrent episode F68.10 ; Personality disorder F60.9 ; Insomnia, unspecified type G47.00 and Anxiety F41.9 [facility] [address] [id number], [place] [address] 08 Aug, 2017 Back pain M54.9 ; Iron deficiency anemia, unspecified iron deficiency anemia type D50.9 ; Chronic kidney disease, unspecified stage N18.9 and Breast cancer screening Z12.31 [facility] [id number] [address] Jul, Back pain M54.9 [facility] [id number] [id number] Jul, [facility] [id number] [id number] Jul, [facility] [id number] [address] Jun, Back pain M54.9 [facility] [id number] [id number] Jun, [facility] [id number] [address] Jun, Back pain M54.9 [facility] [address] [id number], [place] [address] 2544 Jun, Back pain M54.9 ; Seizure disorder G40.909 and Age-related osteoporosis without current pathological fracture M81.0 [facility] [id number] [address] May, [facility] [address]005[address], [place] [address]- 7193 May, Back pain M54.9 [facility] [id number] [place] [address] 82431- 6654 Apr, Back pain M54.9 ; Encounter for immunization Z23 ; Gastroesophageal reflux disease without esophagitis K21.9 ; Age-related osteoporosis without current pathological fracture M81.0 and Chronic pruritus L29.9 [facility] [id number] [place] [address] 03113- 0588 Apr, History of CVA with residual deficit I69.30 [place] [address] [place] [address] 06411- 8923 Apr, Factitious disorder imposed on self, recurrent episode F68.10 and Personality disorder F60.9 [facility] [id number] [place] [address] [id number] Apr, Back pain M54.9 [facility] [address] [place] [address] 61015- 7224 Mar, Factitious disorder imposed on self, recurrent episode F68.10 [facility] [address] [place] [address] 07326- 7154 Mar, [facility] [id number] [place] [address] [id number] Mar, [facility] [id number] [place] [address] [id number] Mar, Back pain M54.9 [facility] [address]005[address], [place] [address] 58[address] 05 Mar, 2017 Back pain M54.9 ; Seizure disorder G40.909 and Age-related osteoporosis without current pathological fracture M81.0 [facility] [address]005[address], [place] [address]- 2652 Feb, History of CVA with residual deficit I69.30 [facility] [address] 1028265[place], [place] [address] 4145 19 Feb, 2017 Factitious disorder imposed on self, recurrent episode F68.10 and Personality disorder F60.9 [facility] [address]00565[address], [place] [address] 57[address] 15 Feb, 2017 Back pain M54.9 [facility] [address]00565[address], [place] [address] 8847 06 Feb, 2017 [facility] [address] [place] [address] 33288- 4565 Jan, [facility] [address] [id number] Jan, Age- related osteoporosis without current pathological fracture M81.0 and Allergic state, subsequent encounter T78.40XD [facility] [address]00565[address], [place] [address] 8408 Jan, Factitious disorder imposed on self, recurrent episode F68.10 and Personality disorder F60.9 [facility] [address]005[address], [place] [address]- 5692 Dec, Back pain M54.9 [facility] [address]005[address], [place] [address]- 8094 Dec, Personality disorder F60.9 and Factitious disorder imposed on self, recurrent episode F68.10 [facility] [id number] [address] Dec, Back pain M54.9 [facility] [id number] [address] Dec, [facility] [id number] [place] [address] [id number] Dec, [facility] [address] [address]696 Dec, [facility] [address] [id number], [place] [address]- 7915 Nov, [facility] [id number] [place] [address] 15162- 6333 16 Nov, 2016 Back pain M54.9 ; Anemia, unspecified type D64.9 and History of colon polyps Z86.010 [facility] [address] [place] [address] 68626- 4523 Nov, Back pain M54.9 [facility] [id number] [place] [address] [id number] October, Back pain M54.9 [facility] [address] [place] [id number] October, Back pain M54.9 and Gastroesophageal reflux disease without esophagitis K21.9 [facility] [id number] [place] [address] [id number] Sep, [facility] [id number] [place] [address] 31345- 4902 Sep, [facility] [id number] [place] [address] 79591- 8581 Sep, [facility] [id number] [place] [address] 67198- 5959 Sep, [facility] [id number] [place] [address] 62070- 9313 Sep, [facility] [address] [place] [address] 13592- 0722 Sep, Seizure disorder G40.909 [facility] [address] [place] [address] 58761- 3545 Sep, Back pain M54.9 [facility] [id number] [place] [address] 87920- 4704 Sep, [facility] [id number] [place] [address] 64795- 9962 Aug, Back pain M54.9 [facility] [address] [place] [address] 49189- 0999 Aug, Seizure disorder G40.909 [facility] [id number] [id number] Aug, [facility] [id number] [place] [address] [id number] Aug, Back pain M54.9 [facility] [id number] [id number] Aug, Back pain M54.9 [facility] [id number] [place] [address] [id number] Aug, Back pain M54.[address] [id number] Jul, Weakness R53.1 [facility] [address] [place] [address] 97965- 0731 Jul, Seizure disorder G40.909 [facility] [address] [place] [address] 14491- 2541 Jul, [facility] [address] [place] [address] 15997- 1235 Jul, Breast cancer screening Z12.39 [facility] [address] [place] [address] 37214- 8263 Jul, [facility] [address]005[address], [place] [address]- 6975 Jul, [facility] [address] [place] [address] 56452- 9572 Jul, [facility] [address] [place] [address] 35316- 2858 13 Jul, 2016 Seizure disorder G40.909 ; Fatigue, unspecified type R53.83 ; Perennial allergic rhinitis, unspecified allergic rhinitis trigger J30.89 and Chronic kidney disease, unspecified stage N18.9 [facility] [address], [place] [address]- 2809 Jul, [facility] [address], [place] [address]- 1403 Jul, Seizure disorder G40.909 [facility] [address] [place] [address] 08511- 8897 Jun, [facility] [address] [place] [address] 07375- 6438 Jun, [facility] and [address] [id number] Jun, Perennial allergic rhinitis, unspecified allergic rhinitis trigger J30.89 [facility] [id number] [place] [address] [id number] Jun, [facility] [id number] [place] [address] 09749- 0350 Jun, Seizure disorder G40.909 [facility] [id number] [place] [address] [id number] Jun, [facility] [id number] [place] [address] [id number] May, [facility] [address] [place] [address] 19672- 9483 May, [facility] [address] [place] [address] 78496- 9775 May, [facility] [address] [place] [address] 24919- 8746 May, [facility] [id number] [place] [address] 69584- 3216 May, History of CVA with residual deficit I69.30 [facility] [id number] [place] [address] 34652- 0872 May, [facility] [address] [place] [address] [id number]- 6033 May, [facility] [address] [place] [address] 26396- 7955 May, [facility] [address] [facility] [id number], [place] [address]- 7912 May, Seizure disorder G40.909 [facility] [address] [facility] [id number] [place] [address] 49991- 1424 May, [employer] [address] [place] [address] May, Back pain M54.9 and Seizure disorder G40.909 [facility] [address] [facility] [id number] [place] [address] 58639- 4132 Apr, [facility] [address] [facility] [id number] [place] [address] 36724- 6543 Apr, Back pain M54.9 [facility] [address] [place] [address] 71214- 5110 Mar, [employer] [address] [place] [address] Mar, Insomnia, unspecified type G47.00 [facility] [address] [facility] [id number] [place] [address] 49319- 2493 Mar, [facility] [address] [place] [address] 80246- 8723 Feb, [facility] [address] [place] [address] 54187- 6210 Feb, [facility] [address] [place] [address] 69287- 4417 Feb, [facility] [id number] [place] [address] 84301- 7058 Jan, [facility] [id number] [place] [address] 10802- 1741 Jan, [employer] [address] [place] [address] Jan, Seizure disorder G40.909 and Back pain M54.9 [facility] [id number] [place] [address] 13263- 3035 Dec, [facility] [id number] [place] [address] 37679- 3544 Dec, [facility] [id number] [place] [address] 96613- 0469 Dec, [facility] [address] [place] [address] 98107- 6745 Nov, [facility] [id number] [place] [address] 59050- 9362 Nov, [facility] [address] [place] [address] 22133- 0150 Nov, Back pain M54.9 [facility] [id number] [place] [address] 76159- 3390 October, [facility] [address] [place] [address] 31736- 7360 October, Back pain M54.9 [facility] [address] [place] [address] 18577- 9683 October, Seizure disorder G40.909 and B12 deficiency E53.8 [facility] [address] [place] [address] 91575- 9016 Sep, History of CVA with residual deficit I69.30 [facility] [address] [place] [address] 04188- 4138 Sep, [facility] [address] [place] [address] 48767- 4142 Sep, [facility] [address] [place] [address] 42478- 1713 Sep, Back pain M54.9 [facility] [address] [place] [address] 22542- 9570 Sep, Seizure disorder G40.909 [facility] [address] [place] [address] 57914- 7527 25 Aug, 2015 Back pain M54.9 [facility] [address] [place] [address] 65170- 4962 18 Aug, 2015 Seizure disorder G40.909 [facility] [address] [place] [address] 03002- 2781 16 Aug, 2015 Back pain M54.9 [facility] [id number] [place] [address] 20499- 2816 14 Aug, 2015 Heart failure, unspecified I50.9 [facility] [address] [place] [address] 37077- 8133 14 Aug, 2015 Medication monitoring encounter Z51.81 [facility] [address] [place] [address] 55514- 4644 15 Jul, 2015 [facility] [address] [place] [address] 45328- 0156 09 Jul, 2015 Seizure disorder G40.909 [facility] [address] [place] [address] 42212- 1828 05 Jul, 2015 Back pain M54.9 [facility] [id number] [place] [address] 64246- 1233 Jun, [facility] [id number] [place] [address] 42593- 2987 Jun, [facility] [address] [place] [address] 07460- 3062 Jun, Mental status change R41.82 ; History of CVA with residual deficit I69.30 ; Back pain M54.9 and Seizure disorder G40.909 [facility] [id number] [place] [address] 37564- 2598 Jun, [facility] [address] [place] [address] 37377- 6780 May, [facility] [id number] [place] [address] 68531- 3466 Apr, [facility] [address] [id number] [place] [address]- 7326 Apr, Medication monitoring encounter Z51.81 [facility] [address] [id number] [place] [address] 2546 Mar, Vomiting R11.10 [facility] [address] [id number] [place] [address]- 2656 Mar, [facility] [address] [id number], [place] [address] 2546 Feb, [facility] [address] [id number] [place] [address]- 9805 Feb, UTI (urinary tract infection) 599.0 [facility] [address] [id number] [place] [address]- 0946 Jan, [facility] [address] [id number], [place] [address]- 8476 Jan, [facility] [address] [id number] [place] [address]- 6936 Jan, [facility] [address] [id number], [place] [address]- 3436 Dec, [facility] [address] [id number], [place] [address]- 2546 Dec, [facility] [address] [id number], [place] [address]- 2546 Dec, [facility] [address] [id number] [place] [address]- 2546 Dec, [facility] [address] [id number], [place] [address]- 2546 Nov, UNKNOWN Nov, [facility] [address] [id number], [place] [address]- 2546 October, [facility] [address] [id number] [place] [address]- 8028 14 Sep, 2014 [facility] [place] [facility] [address] [id number] [place] [address]- 8292 Sep, [facility] [place] [facility] [address] [id number] [place] [address]- 1936 Aug, [facility] [place] [facility] [address] [id number] [place] [address]- 1986 Aug, [facility] [place] [facility] [address] [id number] [place] [address]- 4361 Jul, [facility] [place] [facility] [address] [id number] [place] [address]- 8646 Jul, [facility] [place] [facility] [address] [id number] [place] [address]- 6088 Jul, [facility] [place] [facility] [address] [id number] [place] [address]- 1074 Jul, [facility] [place] [facility] [address] [id number] [place] [address]- 2315 Jul, [facility] [place] [facility] [address] [id number] [place] [address]- 8579 Jun, [facility] [place] [facility] [address] [id number] [place] [address]- 7829 Jun, [facility] [place] [facility] [address] [id number] [place] [address]- 4614 Jun, [facility] [place] [facility] [address] [id number] [place] [address]- 5008 Jun, [facility] [place] [facility] [address] [id number] [place] [address]- 8312 Jun, [facility] [place] [facility] [address] [id number] [place] [address]- 6311 Jun, [facility] [place] [facility] [address] [id number] [place] [address]- 4933 Jun, [facility] [place] [facility] [address] [id number] [place] [address] Jun, [facility] [place] [facility] [address] [id number] [place] [address] Jun, [facility] [place] [facility] [address] [id number] [place] [address] Jun, [facility] [place] [facility] [address] [id number] [place] [address] Jun, [facility] [place] [facility] [address] [id number] [place] [address] Jun, [facility] [place] [facility] [address] [id number] [place] [address] Jun, [facility] [place] [facility] [address] [id number] [place] [address] Jun, [facility] [place] [facility] [address] [id number] [place] [address] Jun, [facility] [place] [facility] [address] [id number] [place] [address] Jun, [facility] [place] [facility] [address] [id number] [place] [address]- [address] Jun, [facility] [place] [facility] [address] [id number], [place] [address] Jun, [facility] [place] [facility] [address] [id number], [place] [address] May, [facility] [place] [facility] [address] [id number] [place] [address] May, [facility] [place] [facility] [address] [id number] [place] [address]- [address] May, [facility] [place] [facility] [address] [id number] [place] [address]- [address] May, [facility] [place] [facility] [address] [id number] [place] [address]- [address] May, [facility] [place] [facility] [address] [id number] [place] [address] [address] May, [facility] [place] [facility] [address] [id number] [place] [address]- [address] May, [facility] [place] [facility] [address] [id number] [place] [address]- [address] May, [facility] [place] [facility] [address] [id number] [place] [address] May, [facility] [address] [place] [id number] May, [facility] [place] [facility] [address] [id number] [place] [address] May, [facility] [place] [facility] [address] [id number] [place] [address]- [address] May, [facility] [place] [facility] [address] [id number] [place] [address]- [address] May, [facility] [place] [facility] [address] [id number] [place] [address] Apr, [facility] [place] [facility] [address] [id number] [place] [address] 3227 Apr, [facility] [place] [facility] [address] [id number] [place] [address]- 6978 Apr, [facility] [place] [facility] [address] [id number] [place] [address] 6656 Apr, [facility] [place] [facility] [address] [id number] [place] [address] Apr, [facility] [place] [facility] [address] [id number] [place] [address]- 3827 Apr, [facility] [place] [facility] [address] [id number] [place] [address]- 3440 Mar, [facility] [place] [facility] [address] [id number] [place] [address]- 7529 Mar, [facility] [address] [id number] [place] [address] 4397 Mar, [facility] [place] [facility] [address] [id number] [place] [address] 2922 Mar, [facility] [address] [id number] [place] [address] 9401 Mar, [facility] [place] [facility] [address] [id number] [place] [address]- 2957 Mar, [facility] [place] [facility] [address] [id number] [place] [address]- 3674 24 Feb, 2014 [facility] [place] [facility] [address] [id number] [place] [address]- 8729 24 Feb, 2014 [facility] [place] [facility] [address] [id number] [place] [address]- 7404 Feb, 2013 [facility] [place] [facility] [address] [id number] [place] [address]- 3580 23 Feb, 2014 [facility] [place] [facility] [address] [id number] [place] [address]- 0116 19 Feb, 2014 [facility] [address] [id number] [place] [address]- 9213 19 Feb, 2014 [facility] [place] [facility] [address] [id number] [place] [address]- 3950 19 Feb, 2013 [facility] [place] [facility] [address] [id number], [place] [address] 2545 19 Feb, 2013 [facility] [place] [facility] [address] [id number] [place] [address]- 0548 12 Feb, 2014 [facility] [address] [id number] [place] [address]- 2542 12 Feb, 2014 [facility] [address] [id number] Feb, [facility] [place] [facility] [address] [id number] [place] [address] 8837 Feb, [facility] [place] [facility] [address] [id number] [place] [address]- 3524 Jan, [facility] [place] [facility] [address] [id number] [place] [address]- 0114 Jan, [facility] [place] [facility] [address] [id number] [place] [address]- 5395 Dec, [facility] [place] [facility] [address] [id number] [place] [address]- 9947 Dec, [facility] [place] [facility] [address] [id number] [place] [address]- 7949 Dec, [facility] [place] [facility] [address] [id number] [place] [address]- 9779 Dec, [facility] [place] [facility] [address] [id number] [place] [address]- 2545 Dec, [facility] [place] [facility] [address] [id number] [place] [address]- 6430 Dec, [facility] [place] [facility] [address] [id number] [place] [address]- 5753 Dec, [facility] [place] [facility] [address] [id number] [place] [address]- 2848 Dec, [facility] [place] [facility] [address] [id number] [place] [address]- 6141 Dec, [facility] [place] [facility] [address] [id number] [place] [address]- 9762 Dec, [facility] [place] [facility] [address] [id number] [place] [address]- 7162 Nov, [facility] [place] [facility] [address] [id number] [place] [address]- 3015 Nov, [facility] [place] [facility] [address] [id number] [place] [address]- 4448 Nov, [facility] [place] [facility] [address] [id number] [place] [address]- 3442 Nov, [facility] [place] [facility] [address] [id number] [place] [address]- 8670 Nov, [facility] [place] [facility] [address] [id number] [place] [address]- 6379 Nov, [facility] [place] [facility] [address] [id number] [place] [address]- 5592 Nov, [facility] [place] [facility] [address] [id number] [place] [address]- 1219 Nov, [facility] [place] [facility] [address] [id number] [place] [address]- 8097 Nov, [facility] [place] [facility] [address] [id number] [place] [address]- 1440 Nov, [facility] [place] [facility] [address] [id number] [place] [address]- 6553 Nov, [facility] [place] [facility] [address] [id number] [place] [address]- 8288 Nov, [facility] [place] [facility] [address] [id number] [place] [address]- 5841 Nov, [facility] [place] [facility] [address] [id number] [place] [address]- 1334 Nov, [facility] [place] [facility] [address] [id number] [place] [address]- 6039 October, [facility] [place] [facility] [address] [id number] [place] [address]- 1719 October, [facility] [place] [facility] [address] [id number] [place] [address]- 8545 October, [facility] [place] [facility] [address] [id number] [place] [address]- 7367 October, [facility] [place] [facility] [address] [id number] [place] [address]- 3159 October, [facility] [address] [id number] [place] [address]- 5448 October, [facility] [place] [facility] [address] [id number] [place] [address]- 6035 October, [facility] [address] [id number] [place] [address]- 3119 October, [facility] [address] [id number] [place] [address]- 5056 October, [facility] [address] [id number] [place] [address]- 9285 October, [facility] [address] [id number] [place] [address]- 7592 Sep, [facility] [address] [id number] [place] [address]- 0017 Sep, [facility] [address] [id number] [place] [address]- 5901 Sep, [facility] [place] [facility] [address] [id number] [place] [address]- 2638 Sep, [facility] [address] [id number] [place] [address]- 1075 Sep, [facility] [place] [facility] [address] [id number] [place] [address]- 2997 Sep, [facility] [place] [facility] [address] [id number] [place] [address]- 0161 Sep, [facility] [place] [facility] [address] [id number] [place] [address]- 7238 Sep, [facility] [place] [facility] [address] [id number] [place] [address]- 3854 Sep, [facility] [place] [facility] [address] [id number] [place] [address]- 7004 Sep, [facility] [place] [facility] [address] [id number] [place] [address]- 5615 Aug, [facility] [place] [facility] [address] [id number] [place] [address]- 9070 Aug, [facility] [place] [facility] [address] [id number] [place] [address]- 6571 Aug, [facility] [place] [facility] [address] [id number] [place] [address]- 8499 Aug, [facility] [place] [facility] [address] [id number] [place] [address]- 3634 Aug, [facility] [place] [facility] [address] [id number] [place] [address]- 5732 Aug, [facility] [place] [facility] [address] [id number] [place] [address]- 0774 Aug, [facility] [place] [facility] [address] [id number] [place] [address]- 7982 Aug, [facility] [place] [facility] [address] [id number] [place] [address]- 4496 Aug, [facility] [place] [facility] [address] [id number] [place] [address]- 7049 Jul, [facility] [place] [facility] [address] [id number] [place] [address]- 3104 Jul, [facility] [place] [facility] [address] [id number] [place] [address]- 2096 Jul, [facility] [place] [facility] [address] [id number] [place] [address]- 7112 Jul, [facility] [place] [facility] [address] [id number] [place] [address]- 3986 Jul, [facility] [place] [facility] [address] [id number] [place] [address]- 3454 Jul, [facility] [place] [facility] [address] [id number] [place] [address]- 0798 Jul, [facility] [place] [facility] [address] [id number] [place] [address]- 6068 Jul, [facility] [place] [facility] [address] [id number] [place] [address]- 2196 Jul, [facility] [place] [facility] [address] [id number] [place] [address]- 3826 Jul, 2013 [facility] [place] [facility] [address] [id number] [place] [address]- 7692 Jul, [facility] [place] [facility] [address] [id number] [place] [address]- 4067 Jul, [facility] [place] [facility] [address] [id number] [place] [address]- 3326 Jul, [facility] [place] [facility] [address] [id number] [place] [address]- 7743 Jul, [facility] [place] [facility] [address] [id number] [place] [address]- 7445 Jul, [facility] [place] [facility] [address] [id number] [place] [address]- 9440 Jul, [facility] [place] [facility] [address] [id number] [place] [address]- 5545 Jun, [facility] [place] [facility] [address] [id number] [place] [address]- 0567 Jun, [facility] [place] [facility] [address] [id number] [place] [address]- 2167 Jun, [facility] [place] [facility] [address] [id number] [place] [address]- 6954 Jun, [facility] [place] [facility] [address] [id number] [place] [address]- 7810 Jun, [facility] [place] [facility] [address] [id number] [place] [address]- 3946 Jun, [facility] [place] [facility] [address] [id number] [place] [address]- 5031 May, [facility] [place] [facility] [address] [id number] [place] [address]- 7898 May, [facility] [place] [facility] [address] [id number] [place] [address]- 2027 May, [facility] [place] [facility] [address] [id number] [place] [address]- 1126 May, [facility] [place] [facility] [address] [id number] [place] [address]- 8977 Apr, [facility] [place] [facility] [address] [id number] [place] [address]- 6585 Apr, [facility] [place] [facility] [address] [id number] [place] [address]- 7617 Apr, [facility] [place] [facility] [address] [id number] [place] [address]- 8475 Apr, [facility] [place] [facility] [address] [id number] [place] [address]- 3597 Apr, [facility] [place] [facility] [address] [id number] [place] [address]- 5313 Apr, [facility] [place] [facility] [address] [id number], [place] [address]- 0270 Apr, [facility] [place] [facility] [address] [id number], [place] [address]- 9823 Apr, [facility] [place] [facility] [address] [id number] [place] [address]- 9932 Apr, [facility] [place] [facility] [address] [id number] [place] [address]- 3756 Apr, [facility] [place] [facility] [address] [id number], [place] [address]- 3005 Apr, [facility] [place] [facility] [address] [id number] [place] [address]- 6882 12 Apr, 2013 [facility] [address] [id number] [place] [address]- 5317 28 Mar, 2013 [facility] [place] [facility] [address] [id number] [place] [address]- 8843 28 Mar, 2013 [facility] [address] [id number] [place] [address]- 0462 16 Mar, 2013 [facility] [place] [facility] [address] [id number] [place] [address]- 8540 16 Mar, 2013 [facility] [address] [id number] [place] [address]140 15 Mar, 2013 [facility] [place] [facility] [address] [id number] [place] [address]- 6580 15 Mar, 2013 [facility] [place] [facility] [address] [id number] [place] [address]- 0290 27 Feb, 2012 [facility] [address] [id number] [place] [address]- 6232 25 Feb, 2012 [facility] [place] [facility] [address] [id number] [place] [address]- 2543 25 Feb, 2012 [facility] [address] [id number] [place] [address]- 1667 23 Feb, 2012 [facility] [place] [facility] [address] [id number] [place] [address]- 2540 17 Feb, 2012 [facility] [place] [facility] [address] [id number] [place] [address]- 2541 10 Feb, 2012 [facility] [place] [facility] [address] [id number] [place] 8450 04 Feb, 2013 [facility] [place] [facility] [address] [id number] [place] [address]- 2542 30 Jan, 2013 [facility] [place] [facility] [address] [id number] [place] [address]- 9308 Jan, [facility] [place] [facility] [address] [id number] [place] [address]- 0176 Jan, [facility] [place] [facility] [address] [id number] [place] [address]- 1921 Jan, [facility] [place] [facility] [address] [id number] [place] [address]- 9422 Jan, [facility] [place] [facility] [address] [id number] [place] [address]- 7310 Jan, [facility] [place] [facility] [address] [id number] [place] [address]- 9286 Jan, [facility] [place] [facility] [address] [id number] [place] [address]- 0121 Dec, [facility] [place] [facility] [address] [id number] [place] [address]- 3001 Dec, [facility] [place] [facility] [address] [id number] [place] [address]- 7514 Dec, [facility] [place] [facility] [address] [id number] [place] [address]- 3164 Dec, [facility] [place] [facility] [address] [id number] [place] [address]- 9159 Dec, [facility] [place] [facility] [address] [id number] [place] [address]- 7284 Dec, [facility] [place] [facility] [address] [id number] [place] [address]- 7033 Nov, [facility] [place] [facility] [address] [id number] [place] [address]- 7981 Nov, [facility] [place] [facility] [address] [id number] [place] [address]- 2849 Nov, [facility] [place] [facility] [address] [id number] [place] [address]- 7564 Nov, [facility] [place] [facility] [address] [id number], [place] [address]- 3170 October, [facility] [address] [id number] [place] [address]- 0255 October, [facility] [address] [id number] [place] [address]- 2907 October, [facility] [address] [id number] [place] [address]- 8203 October, [facility] [address] [id number] [place] [address]- 9298 Sep, [facility] [address] [id number] [place] [address]- 2319 Sep, [facility] [address] [id number] [place] [address]- 4159 Sep, [facility] [address] [id number] [place] [address]- 5807 Sep, [facility] [address] [id number] [place] [address]- 4721 Sep, [facility] [address] [id number] [place] [address]- 9020 Sep, [facility] [address] [id number] [place] [address]- 8344 Sep, [facility] [address] [id number] [place] [address]- 6580 Sep, [facility] [address] [id number], [place] [address]- 9573 Aug, [facility] [address] [id number] [place] [address]- 0791 Aug, [facility] [address] [id number] [place] [address]- 0844 05 Aug, 2012 [facility] [address] [id number] [place] [address]- 5893 Jul, [facility] [address] [id number] [place] [address]- 5098 08 Jul, 2012 [facility] [address] [id number] [place] [address]- 0396 07 Jul, 2012 [facility] [place] [facility] [address] [id number] [place] [address]- 0696 06 Jul, 2012 [facility] [place] [facility] [address] [id number] [place] [address]- 9666 05 Jul, 2012 [facility] [address] [id number] [place] [address]- 8235 Jun, [facility] [place] [facility] [address] [id number] [place] [address]- 2999 Jun, [facility] [address] [id number] [place] [address]- 6051 Jun, [facility] [address] [id number] [place] [address]- 8730 May, [facility] [place] [facility] [address] [id number] [place] [address]- 5672 May, [facility] [address] [id number] [place] [address]- 1779 May, [facility] [place] [facility] [address] [id number] [place] [address]- 3781 May, [facility] [place] [facility] [address] [id number] [place] [address]- 1129 May, [facility] [place] [facility] [address] [id number] [place] [address]- 2878 May, [facility] [place] [facility] [address] [id number] [place] [address]- 9478 May, [facility] [place] [facility] [address] [id number] [place] [address]- 3108 Apr, [facility] [place] [facility] [address] [id number], [place] [address]- 1369 Apr, [facility] [place] [facility] [address] [id number] [place] [address]- 6989 Apr, [facility] [place] [facility] [address] [id number] [place] [address]- 4899 Apr, [facility] [place] [facility] [address] [id number] [place] [address]- 1424 Apr, [facility] [place] [facility] [address] [id number] [place] [address]- 4682 Apr, [facility] [place] [facility] [address] [id number] [place] [address]- 5860 Apr, [facility] [place] [facility] [address] [id number] [place] [address]- 3020 Apr, [facility] [place] [facility] [address] [id number], [place] [address]- 9277 Apr, [facility] [place] [facility] [address] [id number] [place] [address]- 1458 Apr, [facility] [place] [facility] [address] [id number], [place] [address]- 7651 Apr, [facility] [place] [facility] [address] [id number], [place] [address]- 7536 Mar, [facility] [place] [facility] [address] [id number], [place] [address]- 2613 Mar, [facility] [place] [facility] [address] [id number], [place] [address]- 3516 Mar, [facility] [place] [facility] [address] [id number], [place] [address]- 2944 Mar, [facility] [place] [facility] [address] [id number], [place] [address] Mar, [facility] [place] [facility] [address] [id number] [place] [address] Mar, [facility] [place] [facility] [address] [id number] [place] [address] 19 Mar, 2011 [facility] [place] [facility] [address] [id number] [place] [address] 19 Mar, 2012 [facility] [place] [facility] [address] [id number] [place] [address]46 16 Mar, 2011 [facility] [place] [facility] [address] [id number] [place] [address]- 1516 16 Mar, 2012 [facility] [place] [facility] [address] [id number] [place] [address]- [address] 04 Mar, 2012 [facility] [place] [facility] [address] [id number] [place] [address] 28 Sep, 2011 [facility] [place] [facility] [address] [id number] [place] [address]- [address] 27 Sep, 2011 [facility] [place] [facility] [address] [id number] [place] [address] 27 Sep, 2011 [facility] [place] [facility] [address] [id number] [place] [address]- 8587 26 Sep, 2011 [facility] [place] [facility] [address] [id number] [place] [address]- 5827 24 Sep, 2011 [facility] [place] [facility] [address] [id number] [place] [address]- [address] 19 Sep, 2011 [facility] [place] [facility] [address] [id number] [place] [address] 2542 18 Feb, 2011 [facility] [place] [facility] [address] [id number] [place] [address] 2543 18 Sep, 2011 [facility] [place] [facility] [address] [id number] [place] [address] 2540 18 Feb, 2011 [facility] [place] [facility] [address] [id number] [place] [address]- [address]45 30 Jan, 2012 [facility] [place] [facility] [address] [id number] [place] [address] Jan, [facility] [place] [facility] [address] [id number] [place] [address] Jan, [facility] [place] [facility] [address] [id number] [place] [address] Jan, [facility] [place] [facility] [address] [id number] [place] [address]- [address] Dec, [facility] [place] [facility] [address] [id number] [place] [address]- [address] Dec, [facility] [place] [facility] [address] [id number] [place] [address]- [address] Dec, [facility] [place] [facility] [address] [id number] [place] [address]- 1771 Dec, [facility] [place] [facility] [address] [id number] [place] [address]- [address] Dec, [facility] [place] [facility] [address] [id number] [place] [address] Dec, [facility] [place] [facility] [address] [id number] [place] [address]- [address] Dec, [facility] [place] [facility] [address] [id number] [place] [address]- [address] Dec, [facility] [place] [facility] [address] [id number] [place] [address]- [address] Dec, [facility] [place] [facility] [address] [id number] [place] [address]- [address] Dec, [facility] [place] [facility] [address] [id number] [place] [address]- [address] Dec, [facility] [place] [facility] [address] [id number] [place] [address]- [address]284 Dec, [facility] [place] [facility] [address] [id number] [place] [address]- 69[address] Dec, [facility] [place] [facility] [address] [id number] [place] [address]- 7525 05 Dec, 2011 [facility] [address] [id number] [place] [address]- 8186 26 Nov, 2011 [facility] [place] [facility] [address] [id number] [place] [address]- 8198 14 Nov, 2011 [facility] [place] [facility] [address] [id number] [place] [address]- [address] Nov, [facility] [place] [facility] [address] [id number] [place] [address]- [address]996 07 Nov, 2011 [facility] [place] [facility] [address] [id number] [place] [address]- [address]297 07 Nov, 2011 [facility] [place] [facility] [address] [id number] [place] [address]- [address]178 Nov, [facility] [address] [id number] [place] [address]- [address]104 30 Oct, 2011 [facility] [place] [facility] [address] [id number] [place] [address]- [address]93 October, [facility] [place] [facility] [address] [id number] [place] [address] October, [facility] [place] [facility] [address] [id number] [place] [address]- 132[address] October, [facility] [place] [facility] [address] [id number] [place] [address]- [address]29 19 Sep, 2011 [facility] [place] [facility] [address] [id number] [place] [address]- 6164 17 Sep, 2011 [facility] [place] [facility] [address] [id number] [place] [address]- 6136 13 Sep, 2011 [facility] [place] [facility] [address] [id number] [place] [address]- 2195 09 Sep, 2011 [facility] [place] [facility] [address] [id number] [place] [address]- 0270 03 Sep, 2011 [facility] [place] [facility] [address] [id number] [place] [address]- 0339 26 Aug, 2011 [facility] [address] [id number] [place] [address]- 9236 26 Aug, 2011 [facility] [address] [id number] [place] [address] 2546 21 Aug, 2011 [facility] [address] [id number] [place] [address] 2546 20 Aug, 2011 [facility] [address] [id number] [place] [address] 2543 13 Aug, 2011 [facility] [address] [id number] [place] [address]- 4136 02 Aug, 2011 [facility] [address] [facility] [id number] [place] [address] Aug, [facility] [address] [facility] [id number] [place] [address]- 3036 16 Jul, 2011 [facility] [address] [facility] [id number] [place] [address]- 8467 16 Jul, 2011 [facility] [address] [facility] [id number] [place] [address]- 3090 15 Jul, 2011 [facility] [address] [facility] [id number] [place] [address]- 8649 15 Jul, 2011 [facility] [address] [facility] [id number], [place] [address]187 24 Jun, 2011 [facility] [address], [place] [id number] Jun, [facility] [address] [id number] [place] [address]- 4056 18 Jun, 2011 [facility] [address] [facility] [id number] [place] [address]- [address] Jun[facility] [facility] [address] [facility] [id number] [place] [address] Jun, [facility] [place] [facility] [address] [id number] [place] [address] Jun, [facility] [place] [facility] [address] [id number] [place] [address] Jun, [facility] [place] [facility] [address] [id number] [place] [address] Jun, [facility] [place] [facility] [address] [id number] [place] [address] May, [facility] [place] [facility] [address] [id number] [place] [address] May, [facility] [place] [facility] [address] [id number] [place] [address] May, [facility] [place] [facility] [address] [id number] [place] [address] May, [facility] [place] [facility] [address] [id number] [place] [address] May, [facility] [place] [facility] [address] [id number] [place] [address] May, [facility] [place] [facility] [address] [id number] [place] [address] May, [facility] [place] [facility] [address] [id number] [place] [address] Apr, [facility] [place] [facility] [address] [id number], [place] [address] Apr, [facility] [place] [facility] [address] [id number] [place] [address] Apr, [facility] [place] [facility] [address] [id number] [place] [address] Mar, [facility] [place] [facility] [address] [id number] [place] [address] Mar, [facility] [place] [facility] [address] [id number] [place] [address] 14 Mar, 2011 [facility] [place] [facility] [address] [id number] [place] [address] 6866 11 Mar, 2011 [facility] [place] [facility] [address] [id number] [place] [address] 10 Mar, 2011 [facility] [place] [facility] [address] [id number] [place] [address] 3096 10 Mar, 2011 [facility] [place] [facility] [address] [id number] [place] [address] 43[address] 10 Mar, 2011 [facility] [place] [facility] [address] [id number] [place] [address]- 7669 11 Jan, 2011 [facility] [place] [facility] [address] [id number] [place] [address]- [address] 27 May, 2010 [facility] [place] [facility] [address] [id number] [place] [address] 21 May, 2010 [facility] [place] [facility] [address] [id number] [place] [address] 13 May, 2010 [facility] [place] [facility] [address] [id number] [place] [address] 8733 13 May, 2010 [facility] [place] [facility] [address] [id number] [place] [address]- 67[address] May, [facility] [place] [facility] [address] [id number] [place] [address] 06 May, 2010 [facility] [place] [facility] [address] [id number] [place] [address]44 29 Apr, 2010 [facility] [place] [facility] [address] [id number] [place] [address] Apr, [facility] [place] [facility] [address] [id number] [place] [address] 1755 19 Apr, 2010 [facility] [place] [facility] [address] [id number] [place] [address] 18 Apr, 2010 [facility] [place] [facility] [id number] [address] Apr, [facility] [id number] [place] [address] Apr, [facility] [id number], [place] [address] Apr, [facility] [id number] [place] [address] Apr, [facility] [id number], [place] [address] Apr, [facility] [id number] [place] [address]- [address] Apr, [facility] [id number] [place] [address]- 3614 Mar, [facility] [id number] [place] [address]- [address] Mar, [facility] [id number] [place] [address]- [address] Mar, [facility] [id number] [place] [address]- [address] Mar, [facility] [address], [place] [address] Mar, [facility] [address] [place] [address] Dec, [facility] [id number], [place] [address] Nov, IMMUNIZATIONS No Known Immunizations SOCIAL HISTORY Never Assessed REASON FOR VISIT Fentanyl request PLAN OF CARE VITAL SIGNS MEDICATIONS Medication Instructions Dosage Frequency Start Date End Date Duration Status Fentanyl 75 MCG/HR Transdermal every 72 hours 1 patch to skin May, 30 days Active RESULTS No Results PROCEDURES [...] surgery and skin graft, cholecysectomy Hospitalization History [facility] 08/2017
--- OUTSIDE RECORDS SUMMARY | 2018-02-04 13:25 | XMS REPORT ---
Author Author KATHYCRICKETA Organization [facility] Address [address] [place] [address] Care Team Providers Care Head Stock Operator Name Role Phone ESTRELLITACRICKET ADANA Unavailable PROBLEMS Type Condition ICD9-CM Code GMM90-QL Code Onset Dates Condition Status SNOMED Code Problem History of colon polyps Z86.010 Active 423218360 Problem Factitious disorder imposed on self, recurrent episode F68.10 Active 92293995 Problem Anemia, unspecified type D64.9 Active 353463635 Problem Allergic state, subsequent encounter T78.40XD Active 001571266 Problem Unspecified psychosis not due to a substance or known physiological condition F29 Active 18567346 Problem Age-related osteoporosis without current pathological fracture M81.0 Active 63896442 Problem Personality disorder F60.9 Active 55579600 Problem Iron deficiency anemia, unspecified iron deficiency anemia type D50.9 Active 13944360 Problem Anxiety F41.9 Active 22819362 Problem History of CVA with residual deficit I69.30 Active 010148961 Problem Insomnia, unspecified type G47.00 Active 050873267 Problem Perennial allergic rhinitis, unspecified allergic rhinitis trigger J30.89 Active 623919637 Problem Seizure disorder G40.909 Active 421013594 Problem Chronic kidney disease, unspecified stage N18.9 Active 536828673 Problem Back pain M54.9 Active 378177259 Problem Gastroesophageal reflux disease without esophagitis K21.9 Active 286343002 ALLERGIES No Information ENCOUNTERS Encounter Location Date Diagnosis [facility] [address] [facility] [id number] [address] Dec, [facility] [address] [id number] [address] 8[address] Nov, [facility] [address] [facility] [place] [id number] [address] Nov, [facility] [address] [address] October, [facility] [id number] [place] [address] 21407- 7041 October, Back pain M54.9 [facility] [id number] [place] [address] 41308- 4713 October, Seizure disorder G40.909 ; Back pain M54.9 and Allergic state, subsequent encounter T78.40XD [facility] [id number] [place] [address] 72102- 1191 October, [facility] [id number] [place] [address] 07917- 1141 Sep, Back pain M54.9 [facility] [id number] [place] [address] 48174- 1326 Sep, Unspecified psychosis not due to a substance or known physiological condition F29 ; Personality disorder F60.9 and Factitious disorder imposed on self, recurrent episode F68.10 [facility] [id number] [place] [address] 10582- 8231 Sep, [facility] [id number] [place] [address] 71622- 5529 Sep, [facility] [id number] [place] [address] 40398- 8227 Sep, [facility] [id number] [place] [address] 88646- 9150 Sep, [facility] [address]00565100[place], [place] [address] 0895 Aug, [facility] [id number] [place] [address] 73890- 5550 Aug, Back pain M54.9 [facility] [address]65100[place], [place] [address] 3021 Aug, Factitious disorder imposed on self, recurrent episode F68.10 ; Personality disorder F60.9 ; Insomnia, unspecified type G47.00 and Anxiety F41.9 [facility] [address]65100[place] [address] Aug, Back pain M54.9 ; Iron deficiency anemia, unspecified iron deficiency anemia type D50.9 ; Chronic kidney disease, unspecified stage N18.9 and Breast cancer screening Z12.31 [facility] [id number] [place] [address] [id number] Jul, Back pain M54.9 [facility] [id number] [place] [address] [id number] Jul, [place] [id number] [place] [address] [id number] Jul, [facility] [id number] [place] [address] [id number] Jun, Back pain M54.9 [facility] [id number] [id number] Jun, [facility] [id number] [place] [address] [id number] Jun, Back pain M54.9 [facility] [address] [id number] [address] 1146 Jun, Back pain M54.9 ; Seizure disorder G40.909 and Age-related osteoporosis without current pathological fracture M81.0 [facility] [id number] [address] May, [facility] [address] [id number], [place] [address] 2655 May, Back pain M54.9 [facility] [address] [address] Apr, Back pain M54.9 ; Encounter for immunization Z23 ; Gastroesophageal reflux disease without esophagitis K21.9 ; Age-related osteoporosis without current pathological fracture M81.0 and Chronic pruritus L29.9 [facility] [address]005[address]100[place], [place] [address] 8839 16 Apr, 2017 History of CVA with residual deficit I69.30 [facility] [address] [place] [address] 40446- 9078 Apr, Factitious disorder imposed on self, recurrent episode F68.10 and Personality disorder F60.9 [facility] [id number] [place] [address] [id number] Apr, Back pain M54.9 [facility] [id number] [place] [address] 62277- 3822 Mar, Factitious disorder imposed on self, recurrent episode F68.10 [facility] [id number] [place] [address] 21877- 0233 Mar, [facility] [id number] [place] [address] [id number] Mar, [facility] [id number] [place] [address] [id number] Mar, Back pain M54.9 [facility] [id number] [place] [address] 66015- 0244 05 Mar, 2017 Back pain M54.9 ; Seizure disorder G40.909 and Age-related osteoporosis without current pathological fracture M81.0 [facility] [address] [place] [address] 91390- 9317 19 Feb, 2017 History of CVA with residual deficit I69.30 [facility] [address] [place] [address] 78502- 3122 19 Feb, 2017 Factitious disorder imposed on self, recurrent episode F68.10 and Personality disorder F60.9 [facility] [address]00565100[place], [place] [address]- 7960 15 Feb, 2017 Back pain M54.9 [facility] [id number] [place] [address] 56246- 2181 Feb, [facility] [address] [id number], [place] [address] 7838 Jan, [facility] [address] [place] [id number] Jan, Age- related osteoporosis without current pathological fracture M81.0 and Allergic state, subsequent encounter T78.40XD [facility] [address]00565100[place], [place] [address]- 3640 Jan, Factitious disorder imposed on self, recurrent episode F68.10 and Personality disorder F60.9 [facility] [address]005[address]100[place], [place] [address]- 6686 Dec, Back pain M54.9 [facility] [address]00565100[place], [place] [address]- 5201 Dec, Personality disorder F60.9 and Factitious disorder imposed on self, recurrent episode F68.10 [facility] [address] [id number] [id number] Dec, Back pain M54.9 [facility] [id number] [place] [address] [id number] Dec, [facility] [id number] [place] [address] [id number] Dec, [facility] [address]00565100[place], [place] [address]- 9234 Dec, [facility] [address]100[place], [place] [address]- 5376 Nov, [facility] [address]00565100[place], [place] [address]- 2313 Nov, Back pain M54.9 ; Anemia, unspecified type D64.9 and History of colon polyps Z86.010 [facility] [address]100[place], [place] [address]- 2431 Nov, Back pain M54.9 [facility] [address] [id number] [id number] October, Back pain M54.[address] [id number] October, Back pain M54.9 and Gastroesophageal reflux disease without esophagitis K21.9 [facility] [address] [id number] [id number] Sep, [facility] [address]100[place] [address] 9199 Sep, [facility] [address]00565100[place], [place] [address]- 7312 Sep, [facility] [address] 1860665100[place], [place] [address]- 7237 Sep, [facility] [address]100[place], [place] [address]- 6175 Sep, [facility] [address]65100[place], [place] [address]- 0382 Sep, Seizure disorder G40.909 [facility] [address]00565100[place], [place] [address]- 1352 Sep, Back pain M54.9 [facility] [address]100[place] 8146 Sep, [facility] [address] [address] 1752 Aug, Back pain M54.9 [facility] [address]00565100[place], [place] [address]- 5296 Aug, Seizure disorder G40.909 [facility] [id number] [id number] Aug, [facility] [id number] [id number] 16 Aug, 2016 Back pain M54.9 [facility] [id number] [id number] Aug, Back pain M54.9 [facility] [address] [id number] [id number] Aug, Back pain M54.9 [facility] [address] [id number] Jul, Weakness R53.1 [facility] [address] [place] [address] 01403- 1546 Jul, Seizure disorder G40.909 [facility] [id number] [place] [address] 30356- 4160 Jul, [place] [id number] [place] [address] 40954- 9540 Jul, Breast cancer screening Z12.39 [place] [id number] [place] [address] 20708- 4438 Jul, [facility] [id number] [place] [address] 20487- 0326 Jul, [facility] [id number] [place] [address] 39588- 3548 Jul, [facility] [address] [place] [address] 49685- 1260 Jul, Seizure disorder G40.909 ; Fatigue, unspecified type R53.83 ; Perennial allergic rhinitis, unspecified allergic rhinitis trigger J30.89 and Chronic kidney disease, unspecified stage N18.9 [facility] [address]00565100[place], [place] [address]- 8158 Jul, [facility] [id number] [place] [address] 43684- 6551 Jul, Seizure disorder G40.909 [facility] [id number] [place] [address] 95400- 4345 Jun, [facility] [address] [place] [address] 56995- 9986 Jun, [facility] [address] [id number] Jun, Perennial allergic rhinitis, unspecified allergic rhinitis trigger J30.89 [facility] [id number] [place] [address] [id number] Jun, [facility] [id number] [place] [address] 02776- 0693 Jun, Seizure disorder G40.909 [facility] [id number] [place] [address] [id number] Jun, [facility] [id number] [place] [address] [id number] May, [facility] [id number] [place] [address] 08163- 7467 May, [facility] [address] [place] [address] 28532- 0881 May, [facility] [address] [place] [address] 91004- 0794 May, [facility] [address] [place] [address] 33966- 3429 May, History of CVA with residual deficit I69.30 [facility] [address], [place] [address]- 0852 May, [facility] [id number] [place] [address] 85888- 4389 May, [facility] [id number] [place] [address] 81960- 4427 May, [facility] [id number] [place] [address] 99185- 0589 May, Seizure disorder G40.909 [facility] [address]100[place], [place] [address]- 1358 May, [facility] [address] [place] [address] May, Back pain M54.9 and Seizure disorder G40.909 [facility] [address] [facility] [place] [id number], [place] [address]- 5497 Apr, [facility] [address] [facility] [place] [id number] [place] [address] 21457- 9320 Apr, Back pain M54.9 [facility] [address] [facility] [place] [id number] [place] [address] 90689- 9624 Mar, [facility] [address] [place] [address] Mar, Insomnia, unspecified type G47.00 [facility] [address] [facility] [place] [id number] [place] [address] 50124- 6364 Mar, [facility] [address] [facility] [place] [id number] [place] [address] 63508- 4644 Feb, [facility] [id number] [place] [address] 19962- 8741 Feb, [facility] [address] [facility] [place] [id number] [place] [address] 67471- 0692 Feb, [facility] [id number] [place] [address] 91388- 1947 Jan, [facility] [id number] [place] [address] 40239- 6794 Jan, [facility] [address] [place] [address] Jan, Seizure disorder G40.909 and Back pain M54.9 [facility] [address] [facility] [place] [id number], [place] [address]- 4074 Dec, [facility] [address] [facility] [place] [id number] [place] [address] 50248- 9192 Dec, [facility] [id number], [place] [address]- 6418 Dec, [facility] [address] [place] [address] 49890- 4978 Nov, [facility] [id number] [place] [address] 08234- 3886 Nov, [facility] [id number] [place] [address] 41936 2546 Nov, Back pain M54.9 [facility] [id number] [place] [address] 27358- 4496 October, [facility] [id number] [place] [address] 86436 2546 October, Back pain M54.9 [facility] [id number] [place] [address] 13510- 5552 October, Seizure disorder G40.909 and B12 deficiency E53.8 [facility] [id number] [place] [address] 39509- 7873 Sep, History of CVA with residual deficit I69.30 [facility] [id number] [place] [address] 51599- 0129 Sep, [facility] [id number] [place] [address] 01244- 5420 Sep, [facility] [address] [place] [address] 59891- 2979 Sep, Back pain M54.9 [facility] [id number] [place] [address] 45717- 0406 Sep, Seizure disorder G40.909 [facility] [address] [place] [address] 39041 2546 Aug, Back pain M54.9 [facility] [address] [place] [address] 34451 2546 Aug, Seizure disorder G40.909 [facility] [id number] [place] [address] 98380 2546 Aug, Back pain M54.9 [facility] [address] [place] [address] 06450- 7879 14 Aug, 2015 Heart failure, unspecified I50.9 [facility] [id number] [place] [address] 64057- 3189 14 Aug, 2015 Medication monitoring encounter Z51.81 [facility] [id number] [place] [address] 82616- 9303 15 Jul, 2015 [facility] [id number] [place] [address] 16486- 9844 09 Jul, 2015 Seizure disorder G40.909 [place] [id number] [place] [address] 48180- 6123 05 Jul, 2015 Back pain M54.9 [facility] [id number] [place] [address] 92665- 4366 Jun, [facility] [id number] [place] [address] 23920- 3769 Jun, [facility] [id number] [place] [address] 68885- 0933 Jun, Mental status change R41.82 ; History of CVA with residual deficit I69.30 ; Back pain M54.9 and Seizure disorder G40.909 [place] [id number] [place] [address] 00232- 3885 Jun, [facility] [id number] [place] [address] 38765- 1000 May, [facility] [id number] [place] [address] 59072- 0033 Apr, [place] [id number] [place] [address] 91477- 8925 Apr, Medication monitoring encounter Z51.81 [facility] [id number] [place] [address] 23587- 2196 Mar, Vomiting R11.10 [facility] [place] [facility] [address] [id number] [place] [address]- 1626 Mar, [facility] [address] [id number] [place] [address]- 3624 Feb, [facility] [address] [id number] [place] [address]- 2546 Feb, UTI (urinary tract infection) 599.0 [facility] [address] [id number] [place] [address]- 6113 Jan, [facility] [address] [id number] [place] [address]- 5793 Jan, [facility] [address] [id number] [place] [address]- 6746 Jan, [facility] [address] [id number] [place] [address]- 1693 Dec, [facility] [address] [id number] [place] [address]- 3733 Dec, [facility] [address] [id number] [place] [address]- 8203 Dec, [facility] [address] [id number] [place] [address]- 6807 Dec, [facility] [address] [id number] [place] [address]- 1066 Nov, UNKNOWN Nov, [facility] [place] [facility] [address] [id number] [place] [address] 2546 October, [facility] [place] [facility] [address] [id number] [place] [address]- 3056 14 Sep, 2014 [facility] [place] [facility] [address] [id number] [place] [address]- 5506 Sep, [facility] [place] [facility] [address] [id number] [place] [address]- 2546 Aug, [facility] [place] [facility] [address] [id number] [place] [address]- 2597 Aug, [facility] [place] [facility] [address] [id number] [place] [address]- 3786 Jul, [facility] [place] [facility] [address] [id number] [place] [address]- 4136 Jul, [facility] [place] [facility] [address] [id number] [place] [address]- 2576 Jul, [facility] [place] [facility] [address] [id number] [place] [address]- 8310 Jul, [facility] [place] [facility] [address] [id number] [place] [address]- 8023 Jul, [facility] [place] [facility] [address] [id number] [place] [address]- 7385 Jun, [facility] [place] [facility] [address] [id number] [place] [address]- 1444 Jun, [facility] [place] [facility] [address] [id number] [place] [address]- 6683 Jun, [facility] [place] [facility] [address] [id number] [place] [address]- 4712 Jun, [facility] [place] [facility] [address] [id number] [place] [address]- 7696 Jun, [facility] [place] [facility] [address] [id number] [place] [address]- 6196 Jun, [facility] [place] [facility] [address] [id number] [place] [address]- 7888 Jun, [facility] [place] [facility] [address] [id number] [place] [address]- 5425 Jun, [facility] [place] [facility] [address] [id number] [place] [address]- 0776 Jun, [facility] [place] [facility] [address] [id number] [place] [address] Jun, [facility] [place] [facility] [address] [id number] [place] [address] Jun, [facility] [place] [facility] [address] [id number] [place] [address] Jun, [facility] [place] [facility] [address] [id number] [place] [address] Jun, [facility] [place] [facility] [address] [id number] [place] [address] Jun, [facility] [place] [facility] [address] [id number] [place] [address] Jun, [facility] [place] [facility] [address] [id number] [place] [address] Jun, [facility] [place] [facility] [address] [id number] [place] [address] Jun, [facility] [place] [facility] [address] [id number] [place] [address] Jun, [facility] [place] [facility] [address] [id number] [place] [address] May, [facility] [place] [facility] [address] [id number] [place] [address] May, [facility] [place] [facility] [address] [id number] [place] [address] May, [facility] [place] [facility] [address] [id number] [place] [address] 30 May, 2014 [facility] [place] [facility] [address] [id number] [place] [address] 19 May, 2014 [facility] [place] [facility] [address] [id number] [place] [address] 16 May, 2014 [facility] [place] [facility] [address] [id number] [place] [address] May, [facility] [place] [facility] [address] [id number] [place] [address] May, [facility] [place] [facility] [address] [id number] [place] [address] May, [facility] [address] [place] [id number] May, [facility] [place] [facility] [address] [id number] [place] [address] May, [facility] [place] [facility] [address] [id number] [place] [address] May, [facility] [place] [facility] [address] [id number] [place] [address] May, [facility] [place] [facility] [address] [id number] [place] [address] Apr, [facility] [place] [facility] [address] [id number] [place] [address] Apr, [facility] [place] [facility] [address] [id number] [place] [address] Apr, [facility] [place] [facility] [address] [id number] [place] [address] 3785 Apr, [facility] [place] [facility] [address] [id number] [place] [address] 3404 Apr, [facility] [place] [facility] [address] [id number] [place] [address] 8735 Apr, [facility] [place] [facility] [address] [id number] [place] [address] 4597 Mar, [facility] [place] [facility] [address] [id number] [place] [address]- 0456 Mar, [facility] [place] [facility] [address] [id number] [place] [address]- 8678 Mar, [facility] [place] [facility] [address] [id number] [place] [address]- 0745 Mar, [facility] [place] [facility] [address] [id number] [place] [address] 9308 Mar, [facility] [address] [id number] [place] [address] 2401 Mar, [facility] [address] [id number] [place] [address]- 9475 24 Feb, 2014 [facility] [address] [id number] [place] [address]- 4108 24 Feb, 2014 [facility] [address] [id number] [place] [address]- 4737 Feb, [facility] [address] [id number] [place] [address]- 7496 Feb, [facility] [address] [id number] [place] [address]- 4565 Feb, [facility] [address] [id number] [place] [address]- 4035 Feb, [facility] [address] [id number] [place] [address]- 6093 Feb, [facility] [address] [id number] [place] [address]- 3416 Feb, [facility] [address] [id number] [place] [address] 7023 Feb, [facility] [address] [id number] [place] [address]- 254 Feb, [facility] [address] [place] [id number] Feb, [facility] [address] [id number] [place] [address]- 3244 Feb, [facility] [address] [id number] [place] [address]- 5342 Jan, [facility] [address] [id number] [place] [address]- 8974 Jan, [facility] [place] [facility] [address] [id number] [place] [address]- 1824 Dec, 2013 [facility] [place] [facility] [address] [id number] [place] [address]- 2426 Dec, 2013 [facility] [place] [facility] [address] [id number] [place] [address]- 2028 Dec, 2013 [facility] [place] [facility] [address] [id number] [place] [address]- 4851 Dec, 2013 [facility] [place] [facility] [address] [id number] [place] [address]- 9347 Dec, 2013 [facility] [place] [facility] [address] [id number] [place] [address]- 8631 Dec, 2013 [facility] [place] [facility] [address] [id number] [place] [address]- 9153 Dec, [facility] [place] [facility] [address] [id number] [place] [address]- 3654 Dec, [facility] [place] [facility] [address] [id number] [place] [address]- 5656 Dec, [facility] [place] [facility] [address] [id number] [place] [address]- 0725 Dec, [facility] [place] [facility] [address] [id number] [place] [address]- 3086 Nov, [facility] [place] [facility] [address] [id number] [place] [address]- 9519 Nov, [facility] [place] [facility] [address] [id number] [place] [address]- 4515 Nov, [facility] [place] [facility] [address] [id number] [place] [address]- 4883 Nov, [facility] [place] [facility] [address] [id number] [place] [address]- 6251 Nov, [facility] [place] [facility] [address] [id number] [place] [address]- 6660 Nov, [facility] [place] [facility] [address] [id number] [place] [address]- 3420 Nov, [facility] [place] [facility] [address] [id number] [place] [address]- 1268 Nov, [facility] [place] [facility] [address] [id number] [place] [address]- 8927 Nov, [facility] [place] [facility] [address] [id number] [place] [address]- 0722 Nov, [facility] [place] [facility] [address] [id number] [place] [address]- 3755 Nov, [facility] [place] [facility] [address] [id number] [place] [address]- 6476 Nov, [facility] [place] [facility] [address] [id number] [place] [address]- 3378 Nov, [facility] [place] [facility] [address] [id number] [place] [address]- 5080 Nov, [facility] [place] [facility] [address] [id number] [place] [address]- 4983 October, [facility] [place] [facility] [address] [id number] [place] [address]- 2598 October, [facility] [place] [facility] [address] [id number] [place] [address]- 7843 October, [facility] [place] [facility] [address] [id number] [place] [address]- 7533 October, [facility] [place] [facility] [address] [id number] [place] [address]- 3404 October, [facility] [place] [facility] [address] [id number] [place] [address]- 2930 October, [facility] [place] [facility] [address] [id number] [place] [address]- 9543 October, [facility] [place] [facility] [address] [id number] [place] [address]- 8711 October, [facility] [address] [id number] [place] [address]- 9449 October, [facility] [address] [id number] [place] [address]- 9151 October, [facility] [address] [id number] [place] [address]- 4450 Sep, [facility] [address] [id number] [place] [address]- 6047 Sep, [facility] [address] [id number] [place] [address]- 1512 Sep, [facility] [address] [id number] [place] [address]- 5889 Sep, [facility] [address] [id number] [place] [address]- 6260 Sep, [facility] [address] [id number] [place] [address]- 8996 Sep, [facility] [address] [id number] [place] [address]- 0545 Sep, [facility] [address] [id number] [place] [address]- 0576 Sep, [facility] [place] [facility] [address] [id number] [place] [address]- [address] Sep, [facility] [place] [facility] [address] [id number] [place] [address]- 2461 Sep, [facility] [place] [facility] [address] [id number] [place] [address]- 7045 Aug, [facility] [place] [facility] [address] [id number] [place] [address]- 9306 Aug, [facility] [place] [facility] [address] [id number] [place] [address]- 8060 Aug, [facility] [place] [facility] [address] [id number] [place] [address]- 6115 10 Aug, 2013 [facility] [place] [facility] [address] [id number] [place] [address]- 5038 06 Aug, 2013 [facility] [place] [facility] [address] [id number] [place] [address]- 7087 06 Aug, 2013 [facility] [place] [facility] [address] [id number] [place] [address]- 5369 05 Aug, 2013 [facility] [place] [facility] [address] [id number] [place] [address]- 1229 Aug, [facility] [place] [facility] [address] [id number] [place] [address]- 8417 Aug, [facility] [place] [facility] [address] [facility] [id number] [place] [address]- 0191 Jul, [facility] [place] [facility] [address] [id number] [place] [address]- 1453 Jul, [facility] [place] [facility] [address] [id number] [place] [address]- 4004 Jul, [facility] [place] [facility] [address] [facility] [place] [id number] [place] [address]- 0354 Jul, [facility] [place] [facility] [address] [id number] [place] [address]- 4668 Jul, [facility] [place] [facility] [address] [id number] [place] [address]- 6920 Jul, [facility] [place] [facility] [address] [id number] [place] [address]- 7248 Jul, [facility] [place] [facility] [address] [id number] [place] [address]- 5032 Jul, [facility] [place] [facility] [address] [facility] [place] [id number] [place] [address]- 7619 Jul, [facility] [place] [facility] [address] [id number] [place] [address]- 7200 17 Jul, 2013 [facility] [place] [facility] [address] [id number] [place] [address]- 2466 Jul, [facility] [place] [facility] [address] [id number] [place] [address]- 1076 Jul, [facility] [place] [facility] [address] [id number] [place] [address]- 2976 Jul, [facility] [place] [facility] [address] [id number] [place] [address]- 6733 Jul, [facility] [place] [facility] [address] [id number] [place] [address]- 8477 Jul, [facility] [place] [facility] [address] [id number] [place] [address]- 8110 Jul, [facility] [place] [facility] [address] [id number] [place] [address]- 9175 Jun, [facility] [place] [facility] [address] [id number] [place] [address]- 8659 Jun, [facility] [place] [facility] [address] [id number] [place] [address]- 0631 Jun, [facility] [place] [facility] [address] [id number] [place] [address]- 8424 Jun, [facility] [place] [facility] [address] [id number] [place] [address]- 4234 Jun, [facility] [place] [facility] [address] [id number] [place] [address]- 4742 Jun, [facility] [place] [facility] [address] [id number] [place] [address]- 1637 May, [facility] [place] [facility] [address] [id number] [place] [address]- 4505 May, [facility] [place] [facility] [address] [id number] [place] [address]- 0427 May, [facility] [place] [facility] [address] [id number] [place] [address]- 1195 May, [facility] [place] [facility] [address] [id number], [place] [address]- 9835 Apr, [facility] [place] [facility] [address] [id number] [place] [address]- 7108 Apr, [facility] [place] [facility] [address] [id number], [place] [address]- 5397 Apr, [facility] [place] [facility] [address] [id number] [place] [address]- 2651 Apr, [facility] [place] [facility] [address] [id number], [place] [address]- 4359 Apr, [facility] [place] [facility] [address] [id number], [place] [address]- 6620 Apr, [facility] [place] [facility] [address] [id number], [place] [address]- 4843 Apr, [facility] [place] [facility] [address] [id number], [place] [address]- 9786 Apr, [facility] [place] [facility] [address] [id number], [place] [address]- 1613 Apr, [facility] [place] [facility] [address] [id number], [place] [address]- 9374 Apr, [facility] [place] [facility] [address] [id number], [place] [address]- 3989 Apr, [facility] [place] [facility] [address] [id number], [place] [address]- 4827 Apr, [facility] [place] [facility] [address] [id number], [place] [address]- 1199 Mar, [facility] [place] [facility] [address] [id number], [place] [address]- 1713 Mar, [facility] [place] [facility] [address] [id number] [place] [address]- 8111 16 Mar, 2012 [facility] [address] [id number] [place] [address]- 5659 16 Mar, 2013 [facility] [place] [facility] [address] [id number] [place] [address] 2546 15 Mar, 2013 [facility] [address] [id number] [place] [address]- 5251 15 Mar, 2013 [facility] [place] [facility] [address] [id number] [place] [address] 2544 27 Feb, 2012 [facility] [address] [id number] [place] [address]- 8578 25 Feb, 2013 [facility] [address] [id number] [place] [address]- 8308 25 Feb, 2012 [facility] [address] [id number] [place] [address]- 4708 23 Feb, 2012 [facility] [address] [id number] [place] [address]- 2006 17 Feb, 2013 [facility] [address] [id number] [place] [address]- 2543 10 Feb, 2013 [facility] [address] [id number] [place] [address]- 2547 04 Feb, 2013 [facility] [place] [facility] [address] [id number] [place] [address] 2549 30 Jan, 2013 [facility] [place] [facility] [address] [id number] [place] [address]- 254 20 Jan, 2013 [facility] [place] [facility] [address] [id number] [place] [address] 2548 15 Jan, 2013 [facility] [place] [facility] [address] [id number] [place] [address]- 2548 14 Jan, 2013 [facility] [place] [facility] [address] [id number] [place] [address]- 3450 Jan, [facility] [place] [facility] [address] [id number] [place] [address]- 4920 Jan, [facility] [place] [facility] [address] [id number] [place] [address]- 9774 Jan, [facility] [place] [facility] [address] [id number] [place] [address]- 2902 Dec, [facility] [place] [facility] [address] [id number] [place] [address]- 5461 Dec, [facility] [address] [id number] [place] [address]- 9578 Dec, [facility] [place] [facility] [address] [id number] [place] [address]- 7721 Dec, [facility] [address] [id number] [place] [address]- 3186 Dec, [facility] [place] [facility] [address] [id number] [place] [address]- 2067 Dec, [facility] [place] [facility] [address] [id number] [place] [address]- 1051 Nov, [facility] [place] [facility] [address] [id number] [place] [address]- 3576 Nov, [facility] [place] [facility] [address] [id number] [place] [address]- 3701 Nov, [facility] [place] [facility] [address] [id number] [place] [address]- 6854 Nov, [facility] [place] [facility] [address] [id number] [place] [address]- 0018 October, [facility] [place] [facility] [address] [id number] [place] [address]- 6444 October, [facility] [place] [facility] [address] [id number] [place] [address]- 4934 October, [facility] [place] [facility] [address] [id number], [place] [address]- 8742 October, [facility] [address] [id number] [place] [address]- 9822 30 Sep, 2012 [facility] [address] [id number] [place] [address]- 0708 Sep, [facility] [address] [id number] [place] [address]- 4374 16 Sep, 2012 [facility] [address] [id number] [place] [address]- 8253 Sep, [facility] [address] [id number] [place] [address]- 0287 Sep, [facility] [address] [id number] [place] [address]- 8330 Sep, [facility] [address] [id number] [place] [address]- 6421 Sep, [facility] [address] [id number] [place] [address]- 2942 Sep, [facility] [address] [id number] [place] [address]- 3176 Aug, [facility] [address] [id number] [place] [address]- 5760 Aug, [facility] [address] [id number], [place] [address]- 2041 Aug, [facility] [place] [facility] [address] [id number], [place] [address]- 0875 18 Jul, 2012 [facility] [place] [facility] [address] [id number] [place] [address]- 0073 08 Jul, 2012 [facility] [place] [facility] [address] [id number], [place] [address]- 9228 07 Jul, 2012 [facility] [address] [facility] [place] [id number], [place] [address]- 5451 06 Jul, 2012 [facility] [address] [id number] [place] [address]- 5980 Jul, [facility] [place] [facility] [address] [id number] [place] [address]- 4305 Jun, [facility] [place] [facility] [address] [id number] [place] [address]- 5328 Jun, [facility] [place] [facility] [address] [id number] [place] [address]- 7202 Jun, [facility] [place] [facility] [address] [id number] [place] [address]- 1730 May, [facility] [place] [facility] [address] [id number] [place] [address]- 0073 May[facility] [place] [facility] [address] [id number] [place] [address]- 9609 May, [facility] [place] [facility] [address] [id number] [place] [address]- 1243 May, [facility] [place] [facility] [address] [id number] [place] [address]- 9929 May, [facility] [place] [facility] [address] [id number] [place] [address]- 6141 May, [facility] [place] [facility] [address] [id number] [place] [address]- 9421 May, [facility] [place] [facility] [address] [id number] [place] [address]- 5296 Apr, [facility] [place] [facility] [address] [id number] [place] [address]- 2006 Apr, [facility] [place] [facility] [address] [id number] [place] [address]- 3446 Apr, [facility] [place] [facility] [address] [id number] [place] [address]- 2013 Apr, [facility] [place] [facility] [address] [id number], [place] [address]- 0627 Apr, [facility] [place] [facility] [address] [id number] [place] [address]- 8153 Apr, [facility] [place] [facility] [address] [id number], [place] [address]- 8848 Apr, [facility] [place] [facility] [address] [id number] [place] [address]- 2540 Apr, [facility] [place] [facility] [address] [id number], [place] [address]- 1747 Apr, [facility] [place] [facility] [address] [id number] [place] [address]- 9669 Apr, [facility] [place] [facility] [address] [id number], [place] [address]- 6201 Apr, [facility] [place] [facility] [address] [id number], [place] [address]- 9216 Mar, [facility] [place] [facility] [address] [id number], [place] [address]- 8884 Mar, [facility] [place] [facility] [address] [id number], [place] [address]- 8226 Mar, [facility] [place] [facility] [address] [id number], [place] [address] Mar, [facility] [place] [facility] [address] [id number], [place] [address] Mar, [facility] [place] [facility] [address] [id number], [place] [address] Mar, [facility] [place] [facility] [address] [id number], [place] [address] Mar, [facility] [place] [facility] [address] [id number], [place] [address] Mar, [facility] [place] [facility] [address] [facility] [place] [facility] [id number], [place] [address]- [address] 16 Mar, 2012 [facility] [place] [facility] [address] [id number] [place] [address]- [address] 16 Mar, 2012 [facility] [address] [id number] [place] [address]- 47[address] 04 Mar, 2012 [facility] [place] [facility] [address] [id number] [place] [address]46 2011 [facility] [address] [id number] [place] [address]- [address]246 27 Feb, 2011 [facility] [place] [facility] [address] [id number] [place] [address] 2543 27 Feb, 2011 [facility] [address] [id number] [place] [address], [place] [address]- [address]80 26 Feb, 2011 [facility] [place] [facility] [address] [id number] [place] [address]- [address]252 24 Feb, 2012 [facility] [place] [facility] [address] [id number] [place] [address]- 3545 19 Feb, 2012 [facility] [address] [id number] [place] [address]- [address] 18 Feb, 2012 [facility] [place] [facility] [address] [id number] [place] [address]- 3849 18 Feb, 2012 [facility] [address] [id number] [place] [address]- 9565 18 Feb, 2012 [facility] [place] [facility] [address] [id number] [place] [address] 2548 Jan, [facility] [place] [facility] [address] [id number] [place] [address]- [address] Jan, [facility] [place] [facility] [address] [id number] [place] [address]- [address]682 Jan, [facility] [place] [facility] [address] [id number] [place] [address]- [address]197 Jan, [facility] [place] [facility] [address] [id number] [place] [address]- [address] Dec, [facility] [place] [facility] [address] [id number] [place] [address]- [address]2 Dec, [facility] [place] [facility] [address] [id number] [place] [address]- 4383 Dec, [facility] [place] [facility] [address] [id number] [place] [address]- [address] Dec, [facility] [place] [facility] [address] [id number] [place] [address]- 7610 Dec, [facility] [place] [facility] [address] [id number] [place] [address]- [address]93 Dec, [facility] [place] [facility] [address] [id number] [place] [address]- 9149 Dec, [facility] [place] [facility] [address] [id number] [place] [address]- [address]77 Dec, [facility] [place] [facility] [address] [id number] [place] [address]- 8791 Dec, [facility] [place] [facility] [address] [id number] [place] [address]- 9268 Dec, [facility] [place] [facility] [address] [id number] [place] [address]- 2297 Dec, [facility] [place] [facility] [address] [id number] [place] [address]- 9152 Dec, [facility] [place] [facility] [address] [id number] [place] [address]- 4888 Dec, [facility] [place] [facility] [address] [id number] [place] [address]- 9074 Dec, [facility] [place] [facility] [address] [id number] [place] [address]- [address] Nov, [facility] [place] [facility] [address] [id number] [place] [address]- 9737 Nov, [facility] [place] [facility] [address] [id number] [place] [address]- 9846 Nov, [facility] [address] [id number] [place] [address]- [address]689 Nov, [facility] [place] [facility] [address] [id number] [place] [address]- 4911 Nov, [facility] [address] [id number] [place] [address]- 0662 Nov, [facility] [place] [facility] [address] [id number] [place] [address] October, [facility] [address] [id number] [place] [address]- 4269 October, [facility] [place] [facility] [address] [id number] [place] [address]- 5566 October, [facility] [address] [facility] [place] [id number] [place] [address]- 1268 October, [facility] [place] [facility] [address] [id number] [place] [address]- 1990 Sep, [facility] [place] [facility] [address] [id number] [place] [address]- [address]478 17 Sep, 2011 [facility] [place] [facility] [address] [id number] [place] [address]- 7084 13 Sep, 2011 [facility] [place] [facility] [address] [id number] [place] [address]- 9480 Sep, [facility] [place] [facility] [address] [id number] [place] [address]- 8560 Sep, [facility] [place] [facility] [address] [id number] [place] [address]- 1886 Aug, [facility] [place] [facility] [address] [id number] [place] [address]- 6264 Aug, [facility] [place] [facility] [address] [facility] [place] [id number] [place] [address]- 9531 Aug, [facility] [place] [facility] [address] [id number] [place] [address]- 8671 Aug, [facility] [address] [facility] [place] [id number] [place] [address]- 4546 Aug, [facility] [address] [id number] [place] [address]- 3896 Aug, [facility] [address] [facility] [place] [id number] [place] [address]- [address]006 Aug, [facility] [address] [id number] [place] [address]- 9065 Jul, [facility] [address] [facility] [place] [id number] [place] [address]- [address] Jul, [facility] [address] [facility] [place] [id number] [place] [address]- [address]60 15 Jul, 2011 [facility] [address] [facility] [place] [id number] [place] [address]80 Jul, [facility] [address] [facility] [place] [id number] [place] [address]- [address]14 Jun, [address] [id number] Jun, [facility] [address] [facility] [place] [place]] [id number], [place] [address] Jun, [facility] [facility] [address] [facility] [place] [facility] [id number] [place] [address] Jun, [facility] [address] [facility] [place] [id number] [address] Jun, [facility] [address] [facility] [place] [id number] [place] [address] Jun, [facility] [address] [facility] [place] [id number] [place] [address] Jun, [facility] [address] [facility] [place] [id number] [address] Jun, [facility] [place] [facility] [address] [id number] [place] [address] May, [facility] [place] [facility] [address] [id number] [place] [address] May, [facility] [place] [facility] [address] [id number] [place] [address] May, [facility] [place] [facility] [address] [id number] [place] [address] May, [facility] [place] [facility] [address] [id number] [place] [address] May, [facility] [place] [facility] [address] [id number] [place] [address] May, [facility] [place] [facility] [address] [id number] [place] [address] May, [facility] [place] [facility] [address] [id number][place] [address] Apr, [facility] [place] [facility] [address] [id number] [place] [address] Apr, [facility] [place] [facility] [address] [id number][place] [address] Apr, [facility] [place] [facility] [address] [id number], [place] [address] Mar, [facility] [place] [facility] [address] [id number], [place] [address] Mar, [facility] [place] [facility] [address] [id number] [place] [address] 14 Mar, 2011 [facility] [place] [facility] [address] [id number] [address] Mar, [facility] [place] [facility] [address] [id number], [place] [address] 10 Mar, 2011 [facility] [place] [facility] [address] [id number], [place] [address] 10 Mar, 2011 [facility] [address] [id number] [place] [address] 10 Mar, 2011 [facility] [place] [facility] [address] [id number] [place] [address] 11 Jan, 2011 [facility] [address] [facility] [place] [facility] [id number] [place] [address] 27 May, 2010 [facility] [place] [facility] [address] [id number] [place] [address] 21 May, 2010 [facility] [place] [facility] [address] [id number] [place] [address] 13 May, 2010 [facility] [place] [facility] [address] [id number] [place] [address] 13 May, 2010 [facility] [address] [facility] [place] [id number] [place] [address] May, [facility] [place] [facility] [address] [id number] [place] [address] 06 May, 2010 [facility] [place] [facility] [address] [facility] [place] [id number] [place] [address] 29 Apr, 2010 [facility] [place] [facility] [address] [facility] [place] [id number] [place] [address] 26 Apr, 2010 [facility] [place] [facility] [address] [id number] [place] [address] 19 Apr, 2010 [facility] [place] [facility] [address] [id number] [place] [address] 18 Apr, 2010 [facility] [place] [facility] [address] [id number] [place] [address] 15 Apr, 2010 [facility] [place] [facility] [address] [facility] [place] [id number] [place] [address] 12 Apr, 2010 [facility] [place] [facility] [address] [facility] [place] [id number] [place] [address] 12 Apr, 2010 [facility] [place] [facility] [id number], [place] [address] Apr, [facility] [id number], [place] [address] Apr, [facility] [id number], [place] [address] Apr, [facility] [id number], [place] [address] Mar, [facility] [id number], [place] [address] Mar, [facility] [id number] [place] [address] Mar, [facility] [id number], [place] [address] Mar, [facility] [id number], [place] [address] Mar, [facility] [id number], [place] [address] Dec, [facility] [id number], [place] [address] Nov, IMMUNIZATIONS No Known Immunizations SOCIAL HISTORY Never Assessed REASON FOR VISIT f/nicola Hearn RN PLAN OF CARE Activity Details Follow Up 4 Months Reason: VITAL SIGNS Height 62 in 2017-05-09 Weight 107.2 lbs 2017-05-09 Heart Rate 66 bpm 2017-05-09 Respiratory Rate 20 2017-05-09 BMI 19.60 kg/m2 2017-05-09 Blood pressure systolic 128 mmHg 2017-05-09 Blood pressure diastolic 70 mmHg 2017-05-09 MEDICATIONS Medication Instructions Dosage Frequency Start Date End Date Duration Status Tussin Cough DM 100-10 MG/5ML Orally every 6 hrs as needed for cough 10 ml as needed Active Phenytoin Sodium Extended 100 MG TAKE 1 CAPSULE BY MOUTH AT BEDTIME 30 Active Topamax 100 MG Orally Twice a day 1 tablet 12h Active MiraLax Active Fioricet 50-300-40 MG Orally every 6 hrs 1 capsule as needed 6h Active Folic Acid 1 MG TAKE 1 TABLET BY MOUTH EVERY DAY 30 Active Phenytoin 100 MG/4ML Orally at bedtime 150mg Active Lamotrigine 100 mg Orally 2 times a day 1 tablet 12h Active Vitamin B-12 1000 MCG/ML Injection every 14 days 1 ml Active Fexofenadine HCl 180 MG Orally Once a day 1 tablet 24h Active Zofran ODT 4 MG Orally every 8 hrs 1 tablet on the tongue and allow to dissolve 8h Active Melatonin 5 MG Orally at bedtime 1 tablet 30 days Active Nitro-Dur 0.2 MG/HR Transdermal Once a day 1 patch to skin remove after 12 hours 24h Active Phenytoin 50 MG TAKE 1 TABLET BY MOUTH EVERY DAY 30 Active Gabapentin 400 MG TAKE 1 CAPSULE BY MOUTH AT BEDTIME 30 Active Flonase Allergy Relief Active Coumadin 1 MG Orally Once a day 1mg on Sat, , Sat, 1.5mg on Satd, sat, Sat, saturday 24h Active Vitamin D (Ergocalciferol) 00838 UNIT Orally 2 times a day every 7 days 1 capsule Active Bisacodyl 10 MG Rectal Once a day 1 suppository as needed 24h Active Omeprazole Magnesium 20.6 (20 Base) MG Orally Once a day 1 capsule 24h Active Ibuprofen 200 mg Orally every 8 hours as needed for headache 2 tablets Active Clorazepate Dipotassium 3.75 MG Orally Twice a day 1` tablets 12h 28 Active Sodium Bicarbonate 650 MG Orally Once a day 1 tablet 24h Active Lipitor 40 MG Orally Once a day 1 tablet 24h Active Restasis 0.05 % 1 DROP EACH EYE TWICE DAILY 30 Active Fentanyl 75 MCG/HR Transdermal every 72 hours 1 patch to skin Apr, 30 days Active Metoprolol Tartrate 25 MG Orally Twice a day 1 tablet with food 12h Active Hydrocortisone 2.5 % Externally every 24 hours as needed for dry skin 1 application to affected area Active Saline Mist [place] 0.65 % Nasally 1 spray in both nostrils every 4 hours 1 [place] Active Citalopram Hydrobromide 20 MG Orally Once a day 1 tablet 24h 030 days Active Refresh Liquigel 1 % Ophthalmic 4 times a day 1 drop into affected eye as needed 6h Active RESULTS No Results PROCEDURES Procedure Date Ordered Result Body Site [facility] VISIT ESTABLISHED PATIENT May 09, 2017 INSTRUCTIONS MEDICATIONS ADMINISTERED No Known Medications [...] and skin graft, cholecysectomy Hospitalization History [facility] 12/2016 [facility]ization History [facility] 08/2017
--- OUTSIDE RECORDS SUMMARY | 2018-02-04 13:26 | XMS REPORT ---
Author Author NAHOMY BETH Organization [facility] Address [address] [place] [address] Care Team Providers Care Ad Copy Writer Name Role Phone NAHOMY BETH Unavailable PROBLEMS Type Condition ICD9-CM Code ZMC67-TU Code Onset Dates Condition Status SNOMED Code Problem History of colon polyps Z86.010 Active 278629650 Problem Factitious disorder imposed on self, recurrent episode F68.10 Active 57004095 Problem Anemia, unspecified type D64.9 Active 476480994 Problem Allergic state, subsequent encounter T78.40XD Active 480386640 Problem Unspecified psychosis not due to a substance or known physiological condition F29 Active 05201639 Problem Age-related osteoporosis without current pathological fracture M81.0 Active 00736423 Problem Personality disorder F60.9 Active 83246213 Problem Iron deficiency anemia, unspecified iron deficiency anemia type D50.9 Active 88346006 Problem Anxiety F41.9 Active 82738400 Problem History of CVA with residual deficit I69.30 Active 962994818 Problem Insomnia, unspecified type G47.00 Active 646807619 Problem Perennial allergic rhinitis, unspecified allergic rhinitis trigger J30.89 Active 068110998 Problem Seizure disorder G40.909 Active 104947542 Problem Chronic kidney disease, unspecified stage N18.9 Active 769795551 Problem Back pain M54.9 Active 634602892 Problem Gastroesophageal reflux disease without esophagitis K21.9 Active 652447172 ALLERGIES No Information ENCOUNTERS Encounter Location Date Diagnosis [facility] [address] [facility] [id number] [address] Dec, [facility] [address] [id number], [place] [address] 39[address] Nov, [facility] [address] [id number], [place] [address] 5376 Nov, [facility] [address], [place] [address] October, [facility] [id number] [place] [address] 29050- 4600 October, Back pain M54.9 [facility] [id number] [place] [address] 51003- 3199 October, Seizure disorder G40.909 ; Back pain M54.9 and Allergic state, subsequent encounter T78.40XD [facility] [id number] [place] [address] 64950- 3166 October, [facility] [id number] [place] [address] 65758- 2696 Sep, Back pain M54.9 [facility] [id number] [place] [address] 84679- 2218 Sep, Unspecified psychosis not due to a substance or known physiological condition F29 ; Personality disorder F60.9 and Factitious disorder imposed on self, recurrent episode F68.10 [facility] [id number] [place] [address] 64062- 6676 Sep, [facility] [id number] [place] [address] 95276- 8329 Sep, [facility] [id number] [place] [address] 80605- 1311 Sep, [facility] [id number] [place] [address] 22421- 6641 Sep, [facility] [address], [place] [address] 4039 Aug, [facility] [id number] [place] [address] 64768- 5264 Aug, Back pain M54.9 [facility] [address], [place] [address]28 Aug, Factitious disorder imposed on self, recurrent episode F68.10 ; Personality disorder F60.9 ; Insomnia, unspecified type G47.00 and Anxiety F41.9 [facility] [address] [place] [address] [phone]- 0846 Aug, Back pain M54.9 ; Iron deficiency anemia, unspecified iron deficiency anemia type D50.9 ; Chronic kidney disease, unspecified stage N18.9 and Breast cancer screening Z12.31 [facility] [id number] [place] [address] [id number] Jul, Back pain M54.9 [facility] [id number] [place] [address] [id number] Jul, [place] [id number] [place] [address] [id number] Jul, [facility] [id number] [place] [address] [id number] Jun, Back pain M54.9 [facility] [id number] [place] [address] [id number] Jun, [facility] [id number] [place] [address] [id number] Jun, Back pain M54.9 [facility] [address], [place] [address] 4038 Jun, Back pain M54.9 ; Seizure disorder G40.909 and Age-related osteoporosis without current pathological fracture M81.0 [facility] [id number] [id number] May, [facility] [address] [id number], [place] [address] 7201 May, Back pain M54.9 [facility] [address] [place] [address] 43673- 7975 Apr, Back pain M54.9 ; Encounter for immunization Z23 ; Gastroesophageal reflux disease without esophagitis K21.9 ; Age-related osteoporosis without current pathological fracture M81.0 and Chronic pruritus L29.9 [facility] [address], [place] [address] 8500 16 Apr, 2017 History of CVA with residual deficit I69.30 [facility] [address], [place] [address] 9609 16 Apr, 2017 Factitious disorder imposed on self, recurrent episode F68.10 and Personality disorder F60.9 [facility] [id number] [place] [address] [id number] 08 Apr, 2017 Back pain M54.9 [facility] [id number] [place] [address] 15086- 0487 Mar, Factitious disorder imposed on self, recurrent episode F68.10 [facility] [address] [place] [address] 70884- 2927 Mar, [facility] [id number] [place] [address] [id number] Mar, [facility] [id number] [place] [address] [id number] Mar, Back pain M54.9 [facility] [address] [place] [address] 01298- 6389 05 Mar, 2017 Back pain M54.9 ; Seizure disorder G40.909 and Age-related osteoporosis without current pathological fracture M81.0 [facility] [address], [place] [address]- 2478 19 Feb, 2017 History of CVA with residual deficit I69.30 [facility] [address], [place] [address]- 9110 19 Feb, 2017 Factitious disorder imposed on self, recurrent episode F68.10 and Personality disorder F60.9 [facility] [address], [place] [address]- 1678 15 Feb, 2017 Back pain M54.9 [facility] [address] [place] [address] 24317- 0046 Feb, [facility] [address] [id number], [place] [address] 6441 Jan, [facility] [address] [id number] Jan, Age- related osteoporosis without current pathological fracture M81.0 and Allergic state, subsequent encounter T78.40XD [facility] [address], [place] [address]- 6459 Jan, Factitious disorder imposed on self, recurrent episode F68.10 and Personality disorder F60.9 [facility] [address] [id number], [place] [address]- 0014 Dec, Back pain M54.9 [facility] [address] [place] [address] 36076- 1112 Dec, Personality disorder F60.9 and Factitious disorder imposed on self, recurrent episode F68.10 [facility] [address] [place] [id number] Dec, Back pain M54.9 [facility] [id number] [place] [address] [id number] Dec, [facility] [id number] [place] [address] [id number] Dec, [facility] [address], [place] [address]- 2667 Dec, [facility] [address], [place] [address]- 1294 Nov, [facility] [address], [place] [address]- 9054 Nov, Back pain M54.9 ; Anemia, unspecified type D64.9 and History of colon polyps Z86.010 [facility] [address] [id number], [place] [address] 2060 Nov, Back pain M54.9 [facility] [address] [place] [id number] October, Back pain M54.9 [facility] [address] [id number] October, Back pain M54.9 and Gastroesophageal reflux disease without esophagitis K21.9 [facility] [address] [id number] [id number] Sep, [facility] [address] 4808 Sep, [facility] [address] [facility] [id number], [place] [address]- 6296 Sep, [facility] [address] [place] [address] 41344- 9859 Sep, [facility] [address], [place] [address]- 2810 Sep, [facility] [address], [place] [address]- 7111 Sep, Seizure disorder G40.909 [facility] [address] [id number], [place] [address]- 9263 Sep, Back pain M54.9 [facility] [address] [id number] 7016 Sep, [facility] [address], [place] [address]- 7333 Aug, Back pain M54.9 [facility] [address] [id number], [place] [address]- 1736 Aug, Seizure disorder G40.909 [facility] [address] [id number] [id number] Aug, [facility] [address] [id number] [address] 16 Aug, 2016 Back pain M54.9 [facility] [id number] [id number] Aug, Back pain M54.9 [facility] [id number] [id number] Aug, Back pain M54.9 [facility] [address] [id number] Jul, Weakness R53.1 [facility] [address] [place] [address] 40906- 4050 Jul, Seizure disorder G40.909 [facility] [id number] [place] [address] 33933- 2185 Jul, [facility] [id number] [place] [address] 31681- 2791 Jul, Breast cancer screening Z12.39 [facility] [id number] [place] [address] 47971- 5645 Jul, [facility] [id number] [place] [address] 93553- 5490 Jul, [facility] [address] [place] [address] 77851- 3861 Jul, [facility] [id number] [place] [address] 68370- 1704 Jul, Seizure disorder G40.909 ; Fatigue, unspecified type R53.83 ; Perennial allergic rhinitis, unspecified allergic rhinitis trigger J30.89 and Chronic kidney disease, unspecified stage N18.9 [facility] [address], [place] [address]- 7814 Jul, [facility] [address] [place] [address] 53994- 8831 Jul, Seizure disorder G40.909 [facility] [address], [place] [address]- 8260 Jun, [facility] [address] [place] [address] 48137- 6926 Jun, [facility] [address] [id number] Jun, Perennial allergic rhinitis, unspecified allergic rhinitis trigger J30.89 [facility] [id number] [place] [address] [id number] Jun, [facility] [address] [place] [address] 20593- 6228 Jun, Seizure disorder G40.909 [facility] [id number] [place] [address] [id number] Jun, [facility] [id number] [place] [address] [id number] May, [facility] [id number] [place] [address] 95206- 5033 May, [facility] [id number] [place] [address] 18122- 2142 May, [facility] [id number] [place] [address] 96164- 8840 May, [facility] [id number] [place] [address] 58342- 2428 May, History of CVA with residual deficit I69.30 [facility] [address], [place] [address]- 3783 May, [facility] [address] [place] [address] 37764- 0667 May, [facility] [address] [place] [address] 13722- 3395 May, [facility] [address] [place] [address] 89661- 3986 May, Seizure disorder G40.909 [facility] [address], [place] [address]- 1922 May, [facility] [address] [place] [address] May, Back pain M54.9 and Seizure disorder G40.909 [facility] [address] [facility] [id number], [place] [address]- 3557 Apr, [facility] [address] [facility] [id number] [place] [address] 13141- 4147 Apr, Back pain M54.9 [facility] [address] [facility] [id number] [place] [address] 37304- 3114 Mar, [facility] [address] [place] [address] Mar, Insomnia, unspecified type G47.00 [facility] [address] [facility] [id number] [place] [address] 30255- 2322 Mar, [facility] [id number] [place] [address] 63700- 2948 Feb, [facility] [id number] [place] [address] 10924- 7394 Feb, [facility] [address] [facility] [id number] [place] [address] 72915- 0570 Feb, [facility] [id number] [place] [address] 51213- 3461 Jan, [facility] [id number] [place] [address] 03922- 0975 Jan, [facility] [address] [place] [address] Jan, Seizure disorder G40.909 and Back pain M54.9 [facility] [address] [facility] [id number], [place] [address]- 6768 Dec, [facility] [address] [facility] [id number] [place] [address] 40636- 5597 Dec, [facility] [id number] [place] [address] 25034- 2060 Dec, [facility] [address] [place] [address] 48459- 2441 Nov, [facility] [address], [place] [address]- 5041 Nov, [facility] [address] [place] [address] 36888- 8236 Nov, Back pain M54.9 [facility] [address] [place] [address] 06350- 5586 October, [facility] [id number] [place] [address] 61131- 7341 October, Back pain M54.9 [facility] [id number] [place] [address] 56012- 4227 October, Seizure disorder G40.909 and B12 deficiency E53.8 [facility] [address] [place] [address] 20268- 6471 Sep, History of CVA with residual deficit I69.30 [facility] [address] [place] [address] 53292- 3300 Sep, [facility] [id number] [place] [address] 03385- 9995 Sep, [facility] [address] [place] [address] 94839- 4280 Sep, Back pain M54.9 [facility] [address] [place] [address] 26487- 5456 Sep, Seizure disorder G40.909 [facility] [address] [id number], [place] [address]- 0255 Aug, Back pain M54.9 [facility] [id number] [place] [address] 57697- 1916 Aug, Seizure disorder G40.909 [facility] [address] [id number], [place] [address]- 6106 Aug, Back pain M54.9 [facility] [id number] [place] [address] 72731- 2606 14 Aug, 2015 Heart failure, unspecified I50.9 [facility] [id number] [place] [address] 72774- 2495 14 Aug, 2015 Medication monitoring encounter Z51.81 [facility] [id number] [place] [address] 33223- 6037 15 Jul, 2015 [facility] [address] 29466- 7403 09 Jul, 2015 Seizure disorder G40.909 [place] [address] 16129- 8793 05 Jul, 2015 Back pain M54.9 [place] [id number] [place] [address] 11113- 6260 Jun, [place] [address] 24613- 3851 Jun, [facility] [id number] [place] [address] 05531- 9961 Jun, Mental status change R41.82 ; History of CVA with residual deficit I69.30 ; Back pain M54.9 and Seizure disorder G40.909 [place] [id number] [place] [address] 08532- 1940 Jun, [place] [id number] [place] [address] 18267- 4001 May, [place] [facility] [id number] [place] [address] 86104- 9958 Apr, [place] [facility] [id number] [place] [address] 66969- 4809 Apr, Medication monitoring encounter Z51.81 [place] [id number] [place] [address] 31993- 9181 Mar, Vomiting R11.10 [facility] [place] [facility] [address] [id number] [place] [address]- 1702 Mar, [facility] [address] [id number] [place] [address]- 0527 Feb, [facility] [address] [id number] [place] [address]- 5576 10 Feb, 2015 UTI (urinary tract infection) 599.0 [facility] [address] [id number] [place] [address]- 3357 Jan, [facility] [address] [id number] [place] [address]- 3785 Jan, [facility] [address] [id number] [place] [address]- 4376 Jan, [facility] [address] [id number] [place] [address]- 6870 Dec, [facility] [address] [id number] [place] [address]- 8378 Dec, [facility] [address] [id number] [place] [address]- 3590 Dec, [facility] [address] [id number] [place] [address]- 7644 Dec, [facility] [address] [id number] [place] [address]- 4298 Nov, UNKNOWN Nov, [facility] [address] [id number] [place] [address]- 2546 October, [facility] [address] [id number] [place] [address]- 4955 14 Sep, 2014 [facility] [address] [id number] [place] [address]- 4916 13 Sep, 2014 [facility] [place] [facility] [address] [id number] [place] [address]- 2546 Aug, [facility] [address] [id number] [place] [address]- 5337 Aug, [facility] [place] [facility] [address] [id number] [place] [address]- 9246 Jul, [facility] [place] [facility] [address] [id number] [place] [address]- 8916 Jul, [facility] [place] [facility] [address] [id number] [place] [address]- 5346 Jul, [facility] [place] [facility] [address] [id number] [place] [address] Jul, [facility] [place] [facility] [address] [id number] [place] [address] Jul, [facility] [place] [facility] [address] [id number] [place] [address] Jun, [facility] [place] [facility] [address] [id number] [place] [address] Jun, [facility] [place] [facility] [address] [id number] [place] [address] Jun, [facility] [place] [facility] [address] [id number] [place] [address] Jun, [facility] [place] [facility] [address] [id number] [place] [address] Jun, [facility] [place] [facility] [address] [id number] [place] [address] Jun, [facility] [place] [facility] [address] [id number] [place] [address] Jun, [facility] [place] [facility] [address] [id number] [place] [address] Jun, [facility] [place] [facility] [address] [id number] [place] [address] Jun, [facility] [place] [facility] [address] [id number] [place] [address] Jun, [facility] [place] [facility] [address] [id number] [place] [address] Jun, [facility] [place] [facility] [address] [id number] [place] [address] Jun, [facility] [place] [facility] [address] [id number] [place] [address] Jun, [facility] [place] [facility] [address] [id number] [place] [address] Jun, [facility] [place] [facility] [address] [id number] [place] [address] Jun, [facility] [place] [facility] [address] [id number] [place] [address] Jun, [facility] [place] [facility] [address] [id number] [place] [address] Jun, [facility] [place] [facility] [address] [id number] [place] [address] Jun, [facility] [place] [facility] [address] [id number] [place] [address] May, [facility] [place] [facility] [address] [id number] [place] [address] 30 May, 2014 [facility] [place] [facility] [address] [id number] [place] [address] 30 May, 2014 [facility] [place] [facility] [address] [id number] [address] 30 May, 2014 [facility] [place] [facility] [address] [id number] [place] [address]- [address] 19 May, 2014 [facility] [place] [facility] [address] [id number] [place] [address] 16 May, 2014 [facility] [place] [facility] [address] [id number] [place] [address] May, [facility] [place] [facility] [address] [id number], [place] [address] May, [facility] [place] [facility] [address] [id number] [place] [address] May, [facility] [address] [place] [id number] May, [facility] [place] [facility] [address] [id number] [place] [address] May, [facility] [place] [facility] [address] [id number] [place] [address] May, [facility] [place] [facility] [address] [id number] [place] [address] May, [facility] [place] [facility] [address] [id number] [place] [address] Apr, [facility] [place] [facility] [address] [id number] [place] [address] Apr, [facility] [place] [facility] [address] [id number] [place] [address] Apr, [facility] [place] [facility] [address] [id number] [place] [address] Apr, [facility] [place] [facility] [address] [id number] [place] [address] Apr, [facility] [place] [facility] [address] [id number], [place] [address] Apr, [facility] [place] [facility] [address] [id number], [place] [address] Mar, [facility] [place] [facility] [address] [id number] [place] [address] Mar, [facility] [place] [facility] [address] [id number] [place] [address] 68[address] Mar, [facility] [place] [facility] [address] [id number] [place] [address]- 7622 Mar, [facility] [place] [facility] [address] [id number] [place] [address] 4709 Mar, [facility] [address] [id number] [place] [address] 59[address] Mar, [facility] [address] [id number] [place] [address]- [address] 24 Feb, 2014 [facility] [address] [id number] [place] [address]- 1319 24 Feb, 2014 [facility] [address] [id number] [place] [address]- 4400 Feb, [facility] [address] [id number] [place] [address]- 5837 Feb, [facility] [address] [id number] [place] [address]- 9669 Feb, [facility] [address] [id number] [place] [address]- 9667 Feb, [facility] [address] [id number] [place] [address]- 8545 Feb, [facility] [address] [id number] [place] [address]- 9010 Feb, [facility] [address] [id number] [place] [address]- 8091 Feb, [facility] [address] [id number] [place] [address]- 2545 Feb, [facility] [id number] [place] [id number] Feb, [facility] [address] [id number] [place] [address]- 4[address] Feb, [facility] [address] [id number] [place] [address]- 1780 Jan, [facility] [place] [facility] [address] [id number] [place] [address]- 0404 Jan, [facility] [place] [facility] [address] [id number] [place] [address]- 7165 Dec, 2013 [facility] [place] [facility] [address] [id number] [place] [address] Dec, 2013 [facility] [place] [facility] [address] [id number] [place] [address]- 2096 Dec, 2013 [facility] [place] [facility] [address] [id number] [place] [address]- 3435 Dec, 2013 [facility] [place] [facility] [address] [id number] [place] [address]- 5566 Dec, 2013 [facility] [place] [facility] [address] [id number] [place] [address]- 3178 Dec, 2013 [facility] [place] [facility] [address] [id number] [place] [address]- 2252 Dec, [facility] [place] [facility] [address] [id number] [place] [address]- 6780 Dec, [facility] [place] [facility] [address] [id number] [place] [address]- 7498 Dec, [facility] [place] [facility] [address] [id number] [place] [address]- 8176 Dec, [facility] [place] [facility] [address] [id number] [place] [address]- 7895 Nov, [facility] [place] [facility] [address] [id number] [place] [address]- 1757 Nov, [facility] [place] [facility] [address] [id number] [place] [address]- 4454 Nov, [facility] [place] [facility] [address] [id number] [place] [address]- 2796 Nov, [facility] [place] [facility] [address] [id number] [place] [address]- 6963 Nov, [facility] [place] [facility] [address] [id number] [place] [address]- 1387 Nov, [facility] [place] [facility] [address] [id number] [place] [address]- 0575 Nov, [facility] [place] [facility] [address] [id number] [place] [address]- 8791 Nov, [facility] [place] [facility] [address] [id number] [place] [address]- 9818 Nov, [facility] [place] [facility] [address] [id number] [place] [address]- 3263 Nov, [facility] [place] [facility] [address] [id number] [place] [address]- 4432 Nov, [facility] [place] [facility] [address] [id number] [place] [address]- 2485 Nov, [facility] [place] [facility] [address] [id number] [place] [address]- 0113 Nov, [facility] [place] [facility] [address] [id number] [place] [address]- 7099 Nov, [facility] [place] [facility] [address] [id number] [place] [address]- 3579 October, [facility] [place] [facility] [address] [id number] [place] [address]- 2584 October, [facility] [place] [facility] [address] [id number] [place] [address]- 4435 October, [facility] [place] [facility] [address] [id number] [place] [address]- 7833 October, [facility] [place] [facility] [address] [id number] [place] [address]- 1324 October, [facility] [place] [facility] [address] [id number] [place] [address]- 9768 October, [facility] [place] [facility] [address] [id number] [place] [address]- 7258 October, [facility] [place] [facility] [address] [id number] [place] [address]- 5353 October, [facility] [place] [facility] [address] [id number] [place] [address]- 8696 October, [facility] [place] [facility] [address] [id number] [place] [address]- 5747 October, [facility] [place] [facility] [address] [id number] [place] [address]- 6895 Sep, [facility] [place] [facility] [address] [id number] [place] [address]- 7158 Sep, [facility] [place] [facility] [address] [id number] [place] [address]- 3039 Sep, [facility] [place] [facility] [address] [id number] [place] [address]- 9134 Sep, [facility] [place] [facility] [address] [id number] [place] [address]- 6142 Sep, [facility] [place] [facility] [address] [id number] [place] [address]- 7332 Sep, [facility] [place] [facility] [address] [id number] [place] [address]- 5191 Sep, [facility] [place] [facility] [address] [id number] [place] [address]- 6693 Sep, [facility] [place] [facility] [address] [id number] [place] [address]- 6399 Sep, [facility] [place] [facility] [address] [id number] [place] [address]- 1528 Sep, [facility] [place] [facility] [address] [id number] [place] [address]- 4317 Aug, [facility] [place] [facility] [address] [id number] [id number] [address] Aug, [facility] [place] [facility] [address] [id number] [place] [address]- 4036 Aug, [facility] [place] [facility] [address] [id number] [place] [address]- 0523 10 Aug, 2013 [facility] [place] [facility] [address] [id number] [place] [address]- 4811 Aug, [facility] [place] [facility] [address] [id number] [place] [address]- 7093 Aug, [facility] [place] [facility] [address] [id number] [place] [address]- 1531 Aug, [facility] [place] [facility] [address] [id number] [place] [address]- 3640 Aug, [facility] [place] [facility] [address] [id number] [place] [address]- 4269 Aug, [facility] [place] [facility] [address] [id number] [place] [address]- 5138 Jul, [facility] [place] [facility] [address] [id number] [place] [address]- 4622 Jul, [facility] [place] [facility] [address] [id number] [place] [address]- 3683 Jul, [facility] [place] [facility] [address] [id number] [place] [address]- 0891 Jul, [facility] [place] [facility] [address] [id number] [place] [address]- 7867 Jul, [facility] [place] [facility] [address] [id number] [place] [address]- 6094 Jul, [facility] [place] [facility] [address] [id number] [place] [address]- 9071 Jul, [facility] [place] [facility] [address] [id number] [place] [address]- 0185 Jul, [facility] [place] [facility] [address] [id number] [place] [address]- 5081 Jul, [facility] [place] [facility] [address] [id number] [place] [address]- 0956 17 Jul, 2013 [facility] [place] [facility] [address] [id number] [place] [address]- 7966 Jul, [facility] [place] [facility] [address] [id number] [place] [address] 2546 Jul, [facility] [place] [facility] [address] [id number] [place] [address]- 6656 Jul, 2013 [facility] [place] [facility] [address] [id number] [place] [address]- 3968 Jul, [facility] [place] [facility] [address] [id number] [place] [address]- 3926 Jul, [facility] [place] [facility] [address] [id number] [place] [address]- 2742 Jul, [facility] [place] [facility] [address] [id number] [place] [address]- 3374 Jun, [facility] [place] [facility] [address] [id number] [place] [address]- 6821 Jun, [facility] [place] [facility] [address] [id number] [place] [address]- 8243 Jun, [facility] [place] [facility] [address] [id number] [place] [address]- 0269 Jun, [facility] [place] [facility] [address] [id number] [place] [address]- 0548 Jun, [facility] [place] [facility] [address] [id number] [place] [address]- 2428 Jun, [facility] [place] [facility] [address] [id number] [place] [address]- 3946 May, [facility] [place] [facility] [address] [id number] [place] [address] 2546 May, [facility] [place] [facility] [address] [id number] [place] [address]- 7318 May, [facility] [place] [facility] [address] [id number] [place] [address]- 3747 May, [facility] [place] [facility] [address] [id number] [place] [address]- 2874 Apr, [facility] [place] [facility] [address] [id number] [place] [address]- 8653 Apr, [facility] [place] [facility] [address] [id number] [place] [address]- 5084 Apr, [facility] [place] [facility] [address] [id number] [place] [address]- 9190 Apr, [facility] [place] [facility] [address] [id number] [place] [address]- 9988 Apr, [facility] [place] [facility] [address] [id number] [place] [address]- 3926 Apr, [facility] [place] [facility] [address] [id number], [place] [address]- 4592 Apr, [facility] [place] [facility] [address] [id number], [place] [address]- 7941 Apr, [facility] [place] [facility] [address] [id number], [place] [address]- 8094 Apr, [facility] [place] [facility] [address] [id number], [place] [address]- 3629 Apr, [facility] [place] [facility] [address] [id number], [place] [address]- 4498 Apr, [facility] [place] [facility] [address] [id number], [place] [address]- 2428 Apr, [facility] [place] [facility] [address] [id number], [place] [address]- 1189 Mar, [facility] [place] [facility] [address] [id number], [place] [address]- 9017 Mar, [facility] [place] [facility] [address] [id number] [place] [address]- 0504 16 Mar, 2012 [facility] [place] [facility] [address] [id number] [place] [address]- 0066 16 Mar, 2012 [facility] [place] [facility] [address] [id number] [place] [address] 2546 15 Mar, 2013 [facility] [place] [facility] [address] [id number] [place] [address]- 2387 15 Mar, 2013 [facility] [place] [facility] [address] [id number] [place] [address] 2545 27 Feb, 2012 [facility] [place] [facility] [address] [id number] [place] [address]- 3509 25 Feb, 2012 [facility] [place] [facility] [address] [id number] [place] [address] 2544 25 Feb, 2012 [facility] [place] [facility] [address] [id number] [place] [address]- 3019 23 Feb, 2012 [facility] [place] [facility] [address] [id number] [place] [address]- 2540 17 Feb, 2012 [facility] [place] [facility] [address] [id number] [place] [address]- 8178 10 Feb, 2013 [facility] [place] [facility] [address] [id number] [place] [address]- 2542 04 Feb, 2013 [facility] [place] [facility] [address] [id number] [place] [address] 2544 30 Jan, 2013 [facility] [place] [facility] [address] [id number] [place] [address]- 2540 20 Jan, 2013 [facility] [place] [facility] [address] [id number] [place] [address] 2547 15 Jan, 2013 [facility] [place] [facility] [address] [id number] [place] [address]- 2541 14 Jan, 2013 [facility] [place] [facility] [address] [id number] [place] [address]- 4711 Jan, [facility] [place] [facility] [address] [id number] [place] [address]- 0840 Jan, [facility] [address] [id number] [place] [address]- 7287 Jan, [facility] [place] [facility] [address] [id number] [place] [address]- 0616 Dec, [facility] [address] [id number] [place] [address]- 8127 Dec, [facility] [address] [id number] [place] [address]- 6077 Dec, [facility] [address] [id number] [place] [address]- 1923 Dec, [facility] [address] [id number] [place] [address]- 9696 Dec, [facility] [address] [id number] [place] [address]- 0584 Dec, [facility] [place] [address] [id number] [place] [address]- 9024 Nov, [facility] [place] [facility] [address] [id number] [place] [address]- 3126 Nov, [facility] [place] [facility] [address] [id number] [place] [address]- 2905 Nov, [facility] [place] [facility] [address] [id number] [place] [address]- 3588 Nov, [facility] [place] [facility] [address] [id number] [place] [address]- 1249 October, [facility] [place] [facility] [address] [id number] [place] [address]- 0750 October, [facility] [place] [facility] [address] [id number] [place] [address]- 0745 October, [facility] [place] [facility] [address] [id number] [place] [address]- 9419 October, [facility] [address] [id number] [place] [address]- 3798 Sep, [facility] [place] [facility] [address] [id number] [place] [address]- 6652 Sep, [facility] [place] [facility] [address] [id number] [place] [address]- 4727 Sep, [facility] [place] [facility] [address] [id number] [place] [address]- 6524 Sep, [facility] [place] [facility] [address] [id number] [place] [address]- 5490 Sep, [facility] [place] [facility] [address] [id number] [place] [address]- 4334 Sep, [facility] [address] [id number] [place] [address]- 2400 Sep, [facility] [place] [facility] [address] [id number] [place] [address]- 3292 Sep, [facility] [place] [facility] [address] [id number] [place] [address]- 7152 Aug, [facility] [place] [facility] [address] [id number] [place] [address]- 9719 Aug, [facility] [place] [facility] [address] [id number] [place] [address]- 4979 Aug, [facility] [place] [facility] [address] [id number] [place] [address]- 3392 18 Jul, 2012 [facility] [place] [facility] [address] [id number] [place] [address]- 7310 08 Jul, 2012 [facility] [place] [facility] [address] [id number] [place] [address]- 4013 07 Jul, 2012 [facility] [place] [facility] [address] [facility] [id number] [place] [address]- 6030 06 Jul, 2012 [facility] [place] [facility] [address] [id number] [place] [address]- 5679 Jul, [facility] [place] [facility] [address] [id number] [place] [address]- 0616 Jun, [facility] [place] [facility] [address] [id number] [place] [address]- 7226 Jun, [facility] [place] [facility] [address] [id number] [place] [address]- 2578 Jun, [facility] [place] [facility] [address] [id number] [place] [address]- 2429 May, [facility] [place] [facility] [address] [id number] [place] [address]- 7346 May, [facility] [place] [facility] [address] [id number] [place] 5395 May, [facility] [place] [facility] [address] [id number] [place] [address]- 0654 May, [facility] [place] [facility] [address] [id number] [place] [address]- 7625 May, [facility] [place] [facility] [address] [id number] [place] [address]- 9363 May, [facility] [place] [facility] [address] [id number] [place] [address]- 1782 May, [facility] [place] [facility] [address] [id number] [place] [address]- 9416 Apr, [facility] [place] [facility] [address] [id number] [place] [address]- 0545 Apr, [facility] [place] [facility] [address] [id number] [place] [address]- 7706 Apr, [facility] [place] [facility] [address] [id number] [place] [address]- 1144 Apr, [facility] [place] [facility] [address] [id number] [place] [address]- 9543 Apr, [facility] [place] [facility] [address] [id number] [place] [address]- 9311 Apr, [facility] [place] [facility] [address] [id number], [place] [address]- 8387 Apr, [facility] [place] [facility] [address] [facility] [id number] [place] 9443 Apr, [facility] [place] [facility] [address] [id number], [place] [address]- 5586 Apr, [facility] [place] [facility] [address] [id number] [place] [address]- 3455 Apr, [facility] [place] [facility] [address] [id number], [place] [address]- 1063 Apr, [facility] [place] [facility] [address] [id number], [place] [address]- 6271 Mar, [facility] [place] [facility] [address] [id number], [place] [address]- 0054 Mar, [facility] [place] [facility] [address] [id number], [place] [address]- 4494 Mar, [facility] [place] [facility] [address] [id number], [place] [address]- 0726 Mar, [facility] [place] [facility] [address] [id number], [place] [address]- 1934 Mar, [facility] [place] [facility] [address] [id number], [place] [address]- 8900 Mar, [facility] [place] [facility] [address] [id number], [place] [address]- 1676 Mar, [facility] [place] [facility] [address] [id number], [place] [address]- 4502 Mar, [facility] [place] [facility] [address] [facility] [id number] [address] 16 Mar, 2012 [facility] [place] [facility] [address] [id number] [place] [address] 16 Mar, 2012 [facility] [place] [facility] [address] [id number] [place] [address] 04 Mar, 2012 [facility] [place] [facility] [address] [id number] [place] [address] 2546 2011 [facility] [place] [facility] [address] [id number] [place] [address] 2546 27 Sep, 2011 [facility] [place] [facility] [address] [id number] [place] [address] 2545 27 Sep, 2011 [facility] [place] [facility] [address] [id number] [place] [address] 26 Feb, 2011 [facility] [place] [facility] [address] [id number] [place] [address] 24 Feb, 2011 [facility] [place] [facility] [address] [id number] [place] [address] 19 Feb, 2011 [facility] [place] [facility] [address] [id number] [place] [address] 18 Feb, 2012 [facility] [place] [facility] [address] [id number] [place] [address] 2549 18 Feb, 2012 [facility] [place] [facility] [address] [id number] [place] [address] 2542 18 Feb, 2012 [facility] [place] [facility] [address] [id number] [place] [address] 2548 30 Jan, 2012 [facility] [place] [facility] [address] [id number] [place] [address]- [address] Jan, [facility] [place] [facility] [address] [id number] [place] [address] 2541 Jan, [facility] [place] [facility] [address] [id number] [place] [address]- [address] Jan, [facility] [place] [facility] [address] [id number] [place] [address]- [address] Dec, [facility] [place] [facility] [address] [id number] [place] [address]- [address] Dec, [facility] [place] [facility] [address] [id number] [place] [address]- [address] Dec, [facility] [place] [facility] [address] [id number] [place] [address]- [address] Dec, [facility] [place] [facility] [address] [id number] [place] [address]41 Dec, [facility] [place] [facility] [address] [id number] [place] [address] 8440 Dec, [facility] [place] [facility] [address] [id number] [place] [address]- [address]187 Dec, [facility] [place] [facility] [address] [id number] [place] [address]- [address] Dec, [facility] [place] [facility] [address] [id number] [place] [address]- [address] Dec, [facility] [place] [facility] [address] [id number] [place] [address] Dec, [facility] [place] [facility] [address] [id number] [place] [address]- 1495 Dec, [facility] [facility] [address] [id number] [place] [address] Dec, [facility] [place] [facility] [address] [id number] [place] [address]- [address] Dec, [facility] [place] [facility] [address] [id number] [place] [address]- [address]61 Dec, [facility] [place] [facility] [address] [id number] [place] [address] Nov, [facility] [place] [facility] [address] [id number] [place] [address]- [address] Nov, [facility] [place] [facility] [address] [id number] [place] [address]- [address] Nov, [facility] [place] [facility] [address] [id number] [place] [address] Nov, [facility] [place] [facility] [address] [id number] [place] [address]- 2210 Nov, [facility] [place] [facility] [address] [id number] [place] [address]- [address] Nov, [facility] [place] [facility] [address] [id number] [place] [address]- [address] October, [facility] [place] [facility] [address] [id number] [place] [address]- [address] October, [facility] [place] [facility] [address] [id number] [place] [address]- [address] October, [facility] [place] [facility] [address] [id number] [place] [address]- 9663 October, [facility] [place] [facility] [address] [id number] [place] [address]- [address] Sep, [facility] [place] [facility] [address] [id number] [place] [address]- [address]444 17 Sep, 2011 [facility] [place] [facility] [address] [id number] [place] [address]- [address]887 Sep, [facility] [address] [id number] [place] [address]- [address]265 Sep, [facility] [place] [facility] [address] [id number] [place] [address]- [address] Sep, [facility] [place] [facility] [address] [id number] [place] [address]- [address]177 Aug, [facility] [address] [id number] [place] [address]- 2416 Aug, [facility] [place] [address] [id number] [place] [address]- 6[address] Aug, [facility] [place] [facility] [address] [id number] [place] [address]- [address] Aug, [facility] [address] [id number] [place] [address]- [address] Aug, [facility] [address] [id number] [place] [address]- [address] Aug, [facility] [address] [id number] [place] [address]- 7892 Aug, [facility] [address] [id number] [place] [address]- 0049 Jul, [facility] [address] [facility] [id number] [place] [address] Jul, [facility] [address] [facility] [id number] [place] [address]- [address] 15 Jul, 2011 [facility] [address] [facility] [id number] [place] [address]- [address] Jul, [facility] [address] [facility] [id number], [place] [address] Jun, [facility] [address] [id number] Jun, [facility] [address] [facility] [id number], [place] [address] Jun, [facility] [address] [facility] [id number], [place] [address]- [address] Jun, [facility] [address] [facility] [id number], [place] [address] Jun, [facility] [address] [facility] [id number], [place] [address]- [address]83 Jun, [facility] [address] [facility] [id number], [place] [address]- 4826 Jun, [facility] [address] [facility] [id number], [place] [address]- 7718 Jun, [facility] [address] [id number] [place] [address]- 5272 May, [facility] [place] [facility] [address] [id number] [place] [address]- 6315 May, [facility] [address] [id number] [place] [address] May, [facility] [facility] [address] [id number] [place] [address]- 3911 May, [facility] [place] [facility] [address] [id number] [place] [address]- 2408 May, [facility] [place] [facility] [address] [id number] [place] [address]- 4762 May, [facility] [place] [facility] [address] [id number] [place] [address]- 9042 May, [facility] [place] [facility] [address] [id number] [place] [address]- 6077 Apr, [facility] [place] [facility] [address] [id number] [place] [address]- 2912 Apr, [facility] [facility] [address] [id number] [place] [address] Apr, [facility] [place] [facility] [address] [id number] [place] [address] Mar, [facility] [place] [facility] [address] [id number], [place] [address] Mar, [facility] [place] [facility] [address] [id number] [place] [address] 14 Mar, 2011 [facility] [place] [facility] [address] [id number] [place] [address] Mar, [facility] [place] [facility] [address] [id number] [place] [address] 10 Mar, 2011 [facility] [place] [facility] [address] [id number], [place] [address] 10 Mar, 2011 [facility] [place] [facility] [address] [id number] [place] [address] 10 Mar, 2011 [facility] [place] [facility] [address] [id number] [place] [address] 11 Jan, 2011 [facility] [place] [facility] [address] [id number] [place] [address] 27 May, 2010 [facility] [place] [facility] [address] [id number] [place] [address] 21 May, 2010 [facility] [place] [facility] [address] [id number] [place] [address] 13 May, 2010 [facility] [place] [facility] [address] [id number] [place] [address] 13 May, 2010 [facility] [place] [facility] [address] [id number] [place] [address] May, [facility] [place] [facility] [address] [id number] [place] [address] 06 May, 2010 [facility] [place] [facility] [address] [id number] [place] [address] 29 Apr, 2010 [facility] [place] [facility] [address] [id number] [place] [address] 26 Apr, 2010 [facility] [place] [facility] [address] [id number], [place] [address] Apr, [facility] [place] [facility] [address] [id number] [place] [address] 18 Apr, 2010 [facility] [facility] [address] [id number] [place] [address] 15 Apr, 2010 [facility] [place] [facility] [address] [id number] [place] [address] 12 Apr, 2010 [facility] [place] [facility] [address] [id number] [place] [address] 12 Apr, 2010 [facility] [facility] [id number], [place] [address] Apr, [facility] [id number], [place] [address] Apr, [facility] [id number] [address] Apr, [facility] [id number], [place] [address] Mar, [facility] [id number], [place] [address] Mar, [facility] [id number] [place] [address] Mar, [facility] [id number], [place] [address] Mar, [facility] [id number], [place] [address] Mar, [facility] [id number], [place] [address] Dec, [facility] [id number] [address] Nov, IMMUNIZATIONS No Known Immunizations SOCIAL HISTORY Never Assessed REASON FOR VISIT Lab (walk-in)- David Adam RN PLAN OF CARE Activity Details Follow Up prn Reason: VITAL SIGNS MEDICATIONS Unknown Medications RESULTS Name Result Date Reference Range INR (IN HOUSE) INR 1.2 1.10 - 3.30 PREVIOUS INR 1.5 CURRENT COUMADIN DOSE 1.5 mg four times a week, 1 mg the other 3 days NEW COUMADIN DOSE 1.5 mg five times, 1 mg 2 days a week Lot # [id number] Exp date 07/24/2017 PROCEDURES Procedure Date Ordered Result Body Site PROTHROMBIN TIME May 09, 2017 INSTRUCTIONS MEDICATIONS ADMINISTERED No [...]
--- OUTSIDE RECORDS SUMMARY | 2018-02-04 13:27 | XMS REPORT ---
Author Author NAHOMY BETH Organization [facility] Address [facility] [place] [address] Care Team Providers Care Entry Clerk Name Role Phone NAHOMY BETH Unavailable PROBLEMS Type Condition ICD9-CM Code [id number] Code Onset Dates Condition Status SNOMED Code Problem History of colon polyps Z86.010 Active 376287462 Problem Factitious disorder imposed on self, recurrent episode F68.10 Active 92558147 Problem Anemia, unspecified type D64.9 Active 523386640 Problem Allergic state, subsequent encounter T78.40XD Active 441244324 Problem Unspecified psychosis not due to a substance or known physiological condition F29 Active 89930780 Problem Age-related osteoporosis without current pathological fracture M81.0 Active 70560520 Problem Personality disorder F60.9 Active 34222850 Problem Iron deficiency anemia, unspecified iron deficiency anemia type D50.9 Active 61548479 Problem Anxiety F41.9 Active 64407354 Problem History of CVA with residual deficit I69.30 Active 737752741 Problem Insomnia, unspecified type G47.00 Active 793009638 Problem Perennial allergic rhinitis, unspecified allergic rhinitis trigger J30.89 Active 642401888 Problem Seizure disorder G40.909 Active 786575238 Problem Chronic kidney disease, unspecified stage N18.9 Active 610160539 Problem Back pain M54.9 Active 264113618 Problem Gastroesophageal reflux disease without esophagitis K21.9 Active 886732036 ALLERGIES Substance Reaction Event Type Date Status Vibramycin Unknown Drug Allergy Apr, Active Tegretol Unknown Drug Allergy Apr, Active SulfADIAZINE Unknown Drug Allergy Apr, Active Penicillin V Potassium Unknown Drug Allergy Apr, Active Darvocet A500 Unknown Drug Allergy Apr, Active Codeine Phosphate Unknown Drug Allergy Apr, Active Aspirin Unknown Drug Allergy Apr, Active ENCOUNTERS Encounter Location Date Diagnosis [facility] [address] [facility] [id number] [address] Dec, [facility] [address] [address] Nov, [facility] [address] [address] Nov, [facility] [address] [address]7 October, [facility] [id number] [place] [address] 59100- 5306 October, [facility] [address] [place] [address] 99895- 1491 October, Unspecified psychosis not due to a substance or known physiological condition F29 ; Personality disorder F60.9 and Factitious disorder imposed on self, recurrent episode F68.10 [facility] [address] [place] [address] 02803- 8804 October, Back pain M54.9 [facility] [address] [place] [address] 32355- 8068 October, Seizure disorder G40.909 ; Back pain M54.9 and Allergic state, subsequent encounter T78.40XD [facility] [address] [address] October, [facility] [address] [address] Sep, Back pain M54.9 [facility] [address] [id number] [address] 0794 Sep, Unspecified psychosis not due to a substance or known physiological condition F29 ; Personality disorder F60.9 and Factitious disorder imposed on self, recurrent episode F68.10 [facility] [address] [address] Sep, [facility] [id number] [place] [address] 62632- 3879 Sep, [facility] [id number] [id number] [address] Sep, [facility] [address] [place] [address] 459762- 6609 Sep, [facility] [address] [place] [address] 50979- 6404 Aug, [facility] [address] [place] [address] 59898- 6389 Aug, Back pain M54.9 [facility] [address] [place] [address] 16113- 6993 Aug, Factitious disorder imposed on self, recurrent episode F68.10 ; Personality disorder F60.9 ; Insomnia, unspecified type G47.00 and Anxiety F41.9 [facility] [address] [address] Aug, Back pain M54.9 ; Iron deficiency anemia, unspecified iron deficiency anemia type D50.9 ; Chronic kidney disease, unspecified stage N18.9 and Breast cancer screening Z12.31 [facility] [id number] [id number] Jul, Back pain M54.9 [facility] [id number] [id number] Jul, [facility] [id number] [id number] Jul, [facility] [address] [id number] [id number] Jun, Back pain M54.9 [facility] [address] [id number] [id number] Jun, [facility] [id number] [address] Jun, Back pain M54.9 [facility] [address] [address] 7[address] Jun, Back pain M54.9 ; Seizure disorder G40.909 and Age-related osteoporosis without current pathological fracture M81.0 [facility] [id number] [place] [address] [id number] May, [facility] [id number] [place] [address] 37292- 1923 May, Back pain M54.9 [facility] [id number] [place] [address] 04186- 7241 Apr, Back pain M54.9 ; Encounter for immunization Z23 ; Gastroesophageal reflux disease without esophagitis K21.9 ; Age-related osteoporosis without current pathological fracture M81.0 and Chronic pruritus L29.9 [facility] [id number] [place] [address] 35207- 7773 16 Apr, 2017 History of CVA with residual deficit I69.30 [place] [id number] [place] [address] 53684- 4556 Apr, Factitious disorder imposed on self, recurrent episode F68.10 and Personality disorder F60.9 [place] [id number] [place] [address] [id number] Apr, Back pain M54.9 [facility] [address] [place] [address] 56921- 3201 Mar, Factitious disorder imposed on self, recurrent episode F68.10 [facility] [address], [place] [address] 3560 Mar, [facility] [id number] [place] [address] [id number] Mar, [place] [id number] [place] [address] [id number] Mar, Back pain M54.9 [facility] [address] [place] [address] 41677- 8546 Mar, Back pain M54.9 ; Seizure disorder G40.909 and Age-related osteoporosis without current pathological fracture M81.0 [facility] [address] [place] [address] 59680- 6198 Feb, History of CVA with residual deficit I69.30 [facility] [address] [place] [address] 89677- 5933 Feb, Factitious disorder imposed on self, recurrent episode F68.10 and Personality disorder F60.9 [facility] [address] [place] [address] 11788- 7512 15 Feb, 2017 Back pain M54.9 [facility] [id number] [place] [address] 04154- 2474 06 Feb, 2017 [facility] [id number] [place] [address] 35301- 1578 Jan, [facility] and [address] [id number] Jan, Age- related osteoporosis without current pathological fracture M81.0 and Allergic state, subsequent encounter T78.40XD [facility] [id number] [place] [address] 56846- 3327 Jan, Factitious disorder imposed on self, recurrent episode F68.10 and Personality disorder F60.9 [facility] [address] [address]- 8262 Dec, Back pain M54.9 [facility] [address] [place] [address] 02054- 3858 Dec, Personality disorder F60.9 and Factitious disorder imposed on self, recurrent episode F68.10 [facility] [id number] [place] [address] [id number] Dec, Back pain M54.9 [facility] [id number] [place] [address] [id number] Dec, [facility] [id number] [place] [address] [id number] Dec, [facility] [address], [place] [address]- 0938 Dec, [facility] [address], [place] [address]- 6779 Nov, [facility] [address], [place] [address]- 9242 Nov, Back pain M54.9 ; Anemia, unspecified type D64.9 and History of colon polyps Z86.010 [facility] [address], [place] [address]- 8300 Nov, Back pain M54.9 [facility] [id number] [place] [address] [id number] October, Back pain M54.9 [facility] and [address] [id number] October, Back pain M54.9 and Gastroesophageal reflux disease without esophagitis K21.9 [facility] [id number] [place] [address] [id number] Sep, [facility] [address] [place] [address] 65510- 5383 Sep, [facility] [id number], [place] [address]- 4637 Sep, [facility] [address], [place] [address]- 1638 Sep, [facility] [id number], [place] [address]- 1582 Sep, [facility] [address] [address]- 4505 Sep, Seizure disorder G40.909 [facility] [address] [address]- 9672 Sep, Back pain M54.9 [facility] [address] [place] [address] 81606- 2546 Sep, [facility] [id number], [place] [address]- 8418 31 Aug, 2016 Back pain M54.9 [facility] [address], [place] [address] 2546 29 Aug, 2016 Seizure disorder G40.909 [facility] [id number] [id number] 17 Aug, 2016 [facility] [id number] [place] [address] [id number] 16 Aug, 2016 Back pain M54.9 [facility] [id number] [place] [address] [id number] 14 Aug, 2016 Back pain M54.9 [facility] [id number] [id number] 06 Aug, 2016 Back pain M54.9 [facility] and [address] [id number] Jul, Weakness R53.1 [facility] [address] [place] [address] 53258- 4442 Jul, Seizure disorder G40.909 [facility] [address] [place] [address] 32648- 5152 Jul, [facility] [address], [place] [address]- 9542 Jul, Breast cancer screening Z12.39 [facility] [address], [place] [address]- 9550 Jul, [facility] [address] [place] [address] 15653- 0276 Jul, [facility] [address], [place] [address]- 7361 17 Jul, 2016 [facility] [address] [place] [address] 03910- 6174 13 Jul, 2016 Seizure disorder G40.909 ; Fatigue, unspecified type R53.83 ; Perennial allergic rhinitis, unspecified allergic rhinitis trigger J30.89 and Chronic kidney disease, unspecified stage N18.9 [facility] [id number] [place] [address] 74657- 6939 Jul, [facility] [id number] [place] [address] 45656- 1859 Jul, Seizure disorder G40.909 [facility] [id number] [place] [address] 77304- 8578 Jun, [facility] [id number] [place] [address] 26726- 9175 Jun, [address] [id number] Jun, Perennial allergic rhinitis, unspecified allergic rhinitis trigger J30.89 [facility] [id number] [place] [address] [id number] Jun, [facility] [id number] [place] [address] 72947- 1258 Jun, Seizure disorder G40.909 [facility] [id number] [place] [address] [id number] Jun, [facility] [id number] [place] [address] [id number] May, [facility] [id number] [place] [address] 80445- 9346 May, [facility] [id number] [place] [address] 47508- 4738 May, [facility] [id number] [place] [address] 47843- 0406 May, [facility] [address] [place] [address] 59049- 2422 May, History of CVA with residual deficit I69.30 [facility] [address] [place] [address]- 9282 May, [facility] [id number] [place] [address] 05586- 3554 May, [facility] [address] [place] [address] 07625- 6390 May, [facility] [address] [place] [address] 75487- 3633 May, Seizure disorder G40.909 [facility] [id number] [place] [address] 68544- 9880 May, [facility] [address] [place] [address] May, Back pain M54.9 and Seizure disorder G40.909 [facility] [id number] [place] [address] 46834- 4956 Apr, [facility] [id number] [place] [address] 35715- 5222 Apr, Back pain M54.9 [facility] [address] [place] [address] 90892- 3413 Mar, [facility] [address] [place] [address] Mar, Insomnia, unspecified type G47.00 [facility] [address], [place] [address]- 3634 Mar, [facility] [address] [id number], [place] [address]- 5028 Feb, [facility] [address] [place] [address] 90884- 9091 Feb, [facility] [address] [place] [address] 60157- 9013 Feb, [facility] [address], [place] [address]- 8603 Jan, [facility] [address], [place] [address]- 6199 Jan, [facility] [address] [place] [address] Jan, Seizure disorder G40.909 and Back pain M54.9 [facility] [id number] [place] [address] 83670- 7418 Dec, [facility] [id number] [place] [address] 55170- 8918 Dec, [facility] [id number] [place] [address] 85201- 2073 Dec, [facility] [id number] [place] [address] 39608- 4785 Nov, [facility] [id number] [place] [address] 44408- 7268 Nov, [facility] [id number] [place] [address] 94771- 1049 Nov, Back pain M54.9 [facility] [id number] [place] [address] 12353- 1347 October, [facility] [id number] [place] [address] 44847- 5235 October, Back pain M54.9 [facility] [address] [place] [address] 20335- 7249 October, Seizure disorder G40.909 and B12 deficiency E53.8 [facility] [address] [place] [address] 48951- 4047 Sep, History of CVA with residual deficit I69.30 [facility] [id number] [place] [address] 15624- 4861 Sep, [facility] [id number] [place] [address] 74479- 6383 Sep, [facility] [id number] [place] [address] 34079- 5329 Sep, Back pain M54.9 [facility] [id number] [place] [address] 52698- 1620 Sep, Seizure disorder G40.909 [facility] [id number] [place] [address] 38894- 5000 Aug, Back pain M54.9 [facility] [id number] [place] [address] 89153- 7141 18 Aug, 2015 Seizure disorder G40.909 [facility] [id number] [place] [address] 01490- 4411 16 Aug, 2015 Back pain M54.9 [facility] [id number] [place] [address] 75021- 8314 14 Aug, 2015 Heart failure, unspecified I50.9 [facility] [id number] [place] [address] 40671- 9100 14 Aug, 2015 Medication monitoring encounter Z51.81 [facility] [id number] [place] [address] 12256- 8136 15 Jul, 2015 [place] [id number] [place] [address] 26886- 9794 09 Jul, 2015 Seizure disorder G40.909 [facility] [id number] [place] [address] 57822- 0254 05 Jul, 2015 Back pain M54.9 [facility] [id number] [place] [address] 16263- 0373 Jun, [facility] [id number] [place] [address] 56068- 0987 Jun, [facility] [id number] [place] [address] 14931- 6138 Jun, Mental status change R41.82 ; History of CVA with residual deficit I69.30 ; Back pain M54.9 and Seizure disorder G40.909 [facility] [address] [id number] [address]- 3185 Jun, [facility] [address] [facility] [id number] [address]- 7506 May, [facility] [address] [facility] [id number] [address]- 8356 Apr, [facility] [address] [id number], [place] [address]- 2822 Apr, Medication monitoring encounter Z51.81 [facility] [address] [facility] [id number] [address]- 1198 Mar, Vomiting R11.10 [facility] [address] [facility] [id number] [address]- 5946 Mar, [facility] [address] 3219 Feb, [facility] [address] [address]- 9385 Feb, UTI (urinary tract infection) 599.0 [facility] [address] [address]- 8916 Jan, [facility] [address] [id number], [place] [address]- 6011 Jan, [facility] [address] [id number] [address] 2546 Jan, [facility] [address] [id number], [place] [address] 2547 Dec, [facility] [address] [facility] [id number] [address]- 5316 Dec, [facility] [address] [facility] [id number], [place] [address] Dec, [facility] [address] [id number] [address] Dec, [facility] [place] [facility] [address] [id number] [place] [address] Nov, UNKNOWN Nov, [facility] [place] [facility] [address] [id number] [place] [address] October, [facility] [place] [facility] [address] [id number] [place] [address] Sep, [facility] [place] [facility] [address] [id number] [place] [address] Sep, [facility] [place] [facility] [address] [id number] [place] [address] Aug, [facility] [place] [facility] [address] [id number] [place] [address] Aug, [facility] [place] [facility] [address] [id number] [place] [address] Jul, [facility] [place] [facility] [address] [id number] [place] [address] Jul, [facility] [place] [facility] [address] [id number] [place] [address] Jul, [facility] [place] [facility] [address] [id number] [place] [address] Jul, [facility] [place] [facility] [address] [id number] [place] [address] Jul, [facility] [place] [facility] [address] [id number] [place] [address] Jun, [facility] [place] [facility] [address] [id number] [place] [address] Jun, [facility] [place] [facility] [address] [id number] [place] [address] Jun, [facility] [place] [facility] [address] [id number] [place] [address] Jun, [facility] [place] [facility] [address] [id number] [place] [address] Jun, [facility] [address] [id number] [place] [address] Jun, [facility] [place] [facility] [address] [id number] [place] [address] Jun, [facility] [address] [id number] [place] [address] Jun, [facility] [address] [id number] [place] [address] Jun, [facility] [address] [id number] [place] [address] Jun, [facility] [address] [id number] [place] [address] Jun, [facility] [address] [id number] [place] [address] Jun, [facility] [address] [id number] [place] [address] Jun, [facility] [address] [id number] [place] [address] Jun, [facility] [address] [id number] [place] [address] Jun, [facility] [place] [facility] [address] [id number] [place] [address] Jun, [facility] [facility] [place] [facility] [address] [id number] [place] [address] Jun, [facility] [place] [facility] [address] [id number] [place] [address]28 Jun, [facility] [place] [facility] [address] [id number] [place] [address] 8[address] May, [facility] [place] [facility] [address] [id number] [place] [address] 6792 May, [facility] [place] [facility] [address] [id number] [place] [address] 8309 May, [facility] [place] [facility] [address] [id number] [place] [address]- 7979 May, [facility] [place] [facility] [address] [id number] [place] [address] 5131 May, [facility] [place] [facility] [address] [id number] [place] [address]- 8849 May, [facility] [place] [facility] [address] [id number] [place] [address]- 9480 May, [facility] [place] [facility] [address] [id number] [place] [address] 4648 May, [facility] [place] [facility] [address] [id number] [place] [address]- 1293 May, [facility] [address] [place] [id number] May, [facility] [place] [facility] [address] [id number] [place] [address]- 1835 May, [facility] [place] [facility] [address] [id number] [place] [address]- 2096 May, [facility] [place] [facility] [address] [id number] [place] [address]- 3456 May, [facility] [place] [facility] [address] [id number] [place] [address]- 5397 Apr, [facility] [place] [facility] [address] [id number] [place] [address]- 8294 Apr, [facility] [place] [facility] [address] [id number] [place] [address]- 9468 Apr, [facility] [place] [facility] [address] [id number] [place] [address]- 8095 Apr, [facility] [place] [facility] [address] [id number] [address]90 Apr, [facility] [place] [facility] [address] [id number] [place] [address]- 1633 Apr, [facility] [place] [facility] [address] [id number] [place] [address]- 7998 Mar, [facility] [place] [facility] [address] [id number] [place] [address]- 6930 Mar, [facility] [place] [facility] [address] [id number] [place] [address]- 7622 Mar, [facility] [place] [facility] [address] [id number] [place] [address]- 4778 Mar, [facility] [place] [facility] [address] [id number] [place] [address]- 2323 Mar, [facility] [place] [facility] [address] [id number] [place] [address]- 2793 Mar, [facility] [place] [facility] [address] [id number], [place] [address]- 7925 24 Feb, 2014 [facility] [place] [facility] [address] [id number] [place] [address]- 6195 24 Feb, 2014 [facility] [place] [facility] [address] [id number] [place] [address]- 8486 23 Feb, 2014 [facility] [place] [facility] [address] [id number] [address]- 5[address] 23 Feb, 2014 [facility] [place] [facility] [address] [id number], [place] [address]- 7202 19 Feb, 2014 [facility] [place] [facility] [address] [id number] [place] [address]- 3128 19 Feb, 2013 [facility] [place] [facility] [address] [id number], [place] [address]- 0868 19 Feb, 2013 [facility] [place] [facility] [address] [id number] [address]- 7642 19 Feb, 2013 [facility] [place] [facility] [address] [id number] [place] [address] 3611 Feb, [facility] [address] [id number] [place] [address]- 8744 Feb, [facility] [address] [facility] [id number] Feb, [facility] [place] [facility] [address] [id number] [place] [address] 9662 Feb, [facility] [place] [facility] [address] [id number] [place] [address]- 8088 Jan, [facility] [place] [facility] [address] [id number] [place] [address]- 4530 Jan, [facility] [place] [facility] [address] [id number] [place] [address]- 2133 Dec, [facility] [place] [facility] [address] [id number] [place] [address]- 7188 Dec, [facility] [place] [facility] [address] [id number] [place] [address]- 2855 Dec, [facility] [place] [facility] [address] [id number] [place] [address]- 8185 Dec, [facility] [place] [facility] [address] [id number] [place] [address]- 7331 Dec, [facility] [place] [facility] [address] [id number] [place] [address]- 4981 Dec, [facility] [place] [facility] [address] [id number] [place] [address]- 2887 Dec, [facility] [place] [facility] [address] [id number] [place] [address]- 4020 Dec, [facility] [place] [facility] [address] [id number] [place] [address]- 7541 Dec, [facility] [place] [facility] [address] [id number] [place] [address]- 4400 Dec, [facility] [place] [facility] [address] [id number] [place] [address]- 6493 Nov, [facility] [place] [facility] [address] [id number] [place] [address]- 0377 Nov, [facility] [place] [facility] [address] [id number] [place] [address]- 2985 Nov, [facility] [place] [facility] [address] [id number] [place] [address]- 4339 Nov, [facility] [place] [facility] [address] [id number] [place] [address]- 0706 Nov, [facility] [place] [facility] [address] [id number] [place] [address]- 3074 Nov, [facility] [place] [facility] [address] [id number] [place] [address]- 8991 Nov, [facility] [place] [facility] [address] [id number] [place] [address]- 4282 Nov, [facility] [place] [facility] [address] [id number] [place] [address]- 5730 Nov, [facility] [place] [facility] [address] [id number] [place] [address]- 7888 Nov, [facility] [place] [facility] [address] [id number] [place] [address]- 1310 Nov, [facility] [place] [facility] [address] [id number] [place] [address]- 6379 Nov, [facility] [place] [facility] [address] [id number] [place] [address]- 7776 Nov, [facility] [place] [facility] [address] [id number] [place] [address]- 1246 Nov, [facility] [place] [facility] [address] [id number] [place] [address]- 3227 October, [facility] [place] [facility] [address] [id number] [place] [address]- 3783 October, [facility] [address] [id number] [place] [address]- 6378 October, [facility] [place] [facility] [address] [id number] [place] [address]- 2135 October, [facility] [place] [facility] [address] [id number] [place] [address]- 3391 October, [facility] [place] [facility] [address] [id number] [place] [address]- 2084 October, [facility] [place] [facility] [address] [id number] [place] [address]- 1270 October, [facility] [place] [facility] [address] [id number] [place] [address]- 9217 October, [facility] [place] [facility] [address] [id number] [place] [address]- 5327 October, [facility] [place] [facility] [address] [id number] [place] [address]- 4724 October, [facility] [place] [facility] [address] [id number] [place] [address]- 7933 Sep, [facility] [place] [facility] [address] [id number] [place] [address]- 0280 Sep, [facility] [place] [facility] [address] [id number] [place] [address]- 3276 Sep, [facility] [place] [facility] [address] [id number] [place] [address]- 7917 Sep, [facility] [place] [facility] [address] [id number] [place] [address]- 7029 Sep, [facility] [place] [facility] [address] [id number] [place] [address]- 5398 Sep, [facility] [place] [facility] [address] [id number] [place] [address]- 7954 Sep, [facility] [place] [facility] [address] [id number] [place] [address]- 4658 Sep, [facility] [place] [facility] [address] [id number] [place] [address]- 9601 Sep, [facility] [place] [facility] [address] [id number] [place] [address]- 1446 Sep, [facility] [place] [facility] [address] [id number] [place] [address]- 7570 Aug, [facility] [place] [facility] [address] [id number] [place] [address]- 1407 Aug, [facility] [place] [facility] [address] [id number] [place] [address]- 4654 Aug, [facility] [place] [facility] [address] [facility] [id number] [place] [address]- 0746 Aug, [facility] [place] [facility] [address] [facility] [id number] [place] [address]- 5064 Aug, [facility] [place] [facility] [address] [facility] [id number] [place] [address]- 5348 Aug, [facility] [place] [facility] [address] [id number] [place] [address]- 7287 Aug, [facility] [place] [facility] [address] [facility] [id number] [place] [address]- 0711 Aug, [facility] [place] [facility] [address] [id number] [place] [address]- 4196 Aug, [facility] [place] [facility] [address] [facility] [id number] [place] [address]- 7219 Jul, [facility] [place] [facility] [address] [id number] [place] [address]- 9124 Jul, [facility] [place] [facility] [address] [facility] [id number] [place] [address]- 2201 Jul, [facility] [place] [facility] [address] [facility] [id number] [place] Jul, [facility] [place] [facility] [address] [id number] [place] [address]- 6639 Jul, [facility] [place] [facility] [address] [id number] [place] [address]- 3674 Jul, [facility] [place] [facility] [address] [id number] [place] [address]- 6341 Jul, [facility] [place] [facility] [address] [id number] [place] [address]- 4044 Jul, [facility] [place] [facility] [address] [id number] [place] [address]- 3959 Jul, [facility] [place] [facility] [address] [id number] [place] [address]- 0704 Jul, [facility] [place] [facility] [address] [id number] [place] [address]- 8814 Jul, [facility] [place] [facility] [address] [id number] [place] [address]- 1815 Jul, [facility] [place] [facility] [address] [id number] [place] [address]- 2993 Jul, [facility] [place] [facility] [address] [facility] [id number] [place] [address]- 0223 Jul, [facility] [place] [facility] [address] [id number] [place] [address]- 6539 Jul, [facility] [place] [facility] [address] [id number] [place] [address]- 5946 Jul, [facility] [place] [facility] [address] [id number] [place] [address]- 9717 Jun, [facility] [place] [facility] [address] [id number] [place] [address]- 5809 Jun, [facility] [place] [facility] [address] [facility] [id number] [place] [address]- 3680 Jun, [facility] [place] [facility] [address] [id number] [place] [address]- 2291 16 Jun, 2013 [facility] [place] [facility] [address] [id number] [place] [address]- 8994 Jun, [facility] [place] [facility] [address] [id number] [place] [address]- 7676 Jun, [facility] [place] [facility] [address] [id number] [place] [address]- 9511 May, [facility] [place] [facility] [address] [id number] [place] [address]- 8272 May, [facility] [place] [facility] [address] [id number] [place] [address]- 9275 May, [facility] [place] [facility] [address] [id number] [place] [address]- 6677 May, [facility] [place] [facility] [address] [id number] [place] [address]- 6926 Apr, [facility] [place] [facility] [address] [id number] [place] [address]- 1140 Apr, [facility] [place] [facility] [address] [id number] [place] [address]- 4452 Apr, [facility] [place] [facility] [address] [id number] [place] [address]- 7940 Apr, [facility] [place] [facility] [address] [id number] [place] [address]- 3551 Apr, [facility] [place] [facility] [address] [id number] [place] [address]- 3001 Apr, [facility] [place] [facility] [address] [id number] [place] [address]- 2110 Apr, [facility] [place] [facility] [address] [id number] [place] [address]- 3698 Apr, [facility] [place] [facility] [address] [id number] [place] [address]- 0778 18 Apr, 2013 [facility] [place] [facility] [address] [id number] [place] [address]- 4956 18 Apr, 2013 [facility] [place] [facility] [address] [id number] [place] [address]- 8062 Apr, [facility] [place] [facility] [address] [id number] [place] [address]- 3527 Apr, [facility] [place] [facility] [address] [id number] [place] [address]- 8202 28 Mar, 2013 [facility] [place] [facility] [address] [id number] [place] [address]- 8466 28 Mar, 2013 [facility] [place] [facility] [address] [id number] [place] [address]- 6412 16 Mar, 2013 [facility] [place] [facility] [address] [id number] [place] [address]- 0212 16 Mar, 2013 [facility] [place] [facility] [address] [id number], [place] [address]- 1802 15 Mar, 2013 [facility] [place] [facility] [address] [id number] [place] [address]- 9833 15 Mar, 2013 [facility] [place] [facility] [address] [id number], [place] [address]- 1633 27 Feb, 2013 [facility] [place] [facility] [address] [id number], [place] [address]- 8406 25 Sep, 2012 [facility] [place] [facility] [address] [id number], [place] [address]- 2548 25 Sep, 2012 [facility] [place] [facility] [address] [id number] [place] [address]- 2542 23 Sep, 2012 [facility] [place] [facility] [address] [id number], [place] [address]- 5172 17 Sep, 2012 [facility] [place] [facility] [address] [id number], [place] [address]- 2548 10 Sep, 2012 [facility] [place] [facility] [address] [id number] [place] [address]- 1672 Feb, [facility] [place] [facility] [address] [id number] [place] [address]- 4286 Jan, [facility] [place] [facility] [address] [id number] [place] [address]- 8199 Jan, [facility] [place] [facility] [address] [id number] [place] [address]- 0316 Jan, [facility] [place] [facility] [address] [id number] [place] [address]- 6785 Jan, [facility] [place] [facility] [address] [id number] [place] [address]- 9826 Jan, [facility] [place] [facility] [address] [id number] [place] [address]- 3421 Jan, [facility] [place] [facility] [address] [id number] [place] [address]- 2566 Jan, [facility] [place] [facility] [address] [id number] [place] [address]- 3781 Dec, [facility] [place] [facility] [address] [id number] [place] [address]- 6826 Dec, [facility] [place] [facility] [address] [id number] [place] [address]- 9927 Dec, [facility] [place] [facility] [address] [id number] [place] [address]- 9076 Dec, [facility] [place] [facility] [address] [id number] [place] [address]- 2355 Dec, [facility] [place] [facility] [address] [id number] [place] [address]- 6862 Dec, [facility] [place] [facility] [address] [id number] [id number] [address]335 Nov, [facility] [place] [facility] [address] [id number] [place] [address]- 9664 Nov, [facility] [place] [facility] [address] [id number] [place] [address]- 7366 Nov, [facility] [address] [id number] [place] [address]- 9385 Nov, [facility] [address] [id number] [place] [address]- 7439 October, [facility] [address] [id number] [place] [address]- 4216 October, [facility] [address] [id number] [place] [address]- 2503 October, [facility] [address] [id number] [place] [address]- 4392 October, [facility] [address] [id number] [place] [address]- 4081 Sep, [facility] [address] [id number] [place] [address]- 8566 Sep, [facility] [address] [id number] [place] [address]- 3775 Sep, [facility] [address] [id number] [place] [address]- 0568 Sep, [facility] [address] [id number] [place] [address]- 7163 Sep, [facility] [address] [id number] [place] [address]- 5701 Sep, [facility] [address] [id number] [place] [address]- 4171 Sep, [facility] [address] [id number] [place] [address]- 9300 Sep, [facility] [address] [id number] [place] [address]- 4371 Aug, [facility] [address] [id number] [place] [address]- 6299 13 Aug, 2012 [facility] [address] [id number] [place] [address]- 5836 05 Aug, 2012 [facility] [address] [id number] [place] [address]- 8536 18 Jul, 2012 [facility] [address] [id number] [place] [address]- 6836 08 Jul, 2012 [facility] [address] [id number] [place] [address]- 7304 07 Jul, 2012 [facility] [address] [id number] [place] [address]- 2927 06 Jul, 2012 [facility] [address] [id number] [place] [address]- 3528 05 Jul, 2012 [facility] [address] [id number] [place] [address]- 4021 Jun, [facility] [address] [id number] [place] [address]- 6468 Jun, [facility] [address] [id number] [place] [address]- 8894 08 Jun, 2012 [facility] [address] [facility] [id number] [place] [address]- 7034 May, [facility] [address] [id number] [place] [address]- 7283 May, [facility] [place] [facility] [address] [id number] [place] [address] 2548 May, [facility] [address] [id number] [place] [address]- 2527 May, [facility] [place] [facility] [address] [id number] [place] [address] May, [facility] [address] [facility] [id number] [address] May, [facility] [place] [facility] [address] [id number] [place] [address] May, [facility] [place] [facility] [address] [id number] [place] [address] Apr, [facility] [place] [facility] [address] [id number] [place] [address] Apr, [facility] [place] [facility] [address] [id number] [place] [address] Apr, [facility] [place] [facility] [address] [id number] [place] [address]15 Apr, [facility] [place] [facility] [address] [id number] [place] [address] 63[address] Apr, [facility] [place] [facility] [address] [id number] [place] [address] Apr, [facility] [place] [facility] [address] [id number] [place] [address] 1728 Apr, [facility] [place] [facility] [address] [id number] [place] [address] 2468 Apr, [facility] [place] [facility] [address] [id number] [place] [address] 8876 Apr, [facility] [place] [facility] [address] [id number] [place] [address] Apr, [facility] [place] [facility] [address] [id number] [place] [address]- 2532 Apr, [facility] [place] [facility] [address] [id number] [place] [address]- 48[address] Mar, [facility] [place] [facility] [address] [id number] [place] [address] 4910 Mar, [facility] [place] [facility] [address] [id number] [place] [address] Mar, [facility] [place] [facility] [address] [id number] [place] [address] 1061 Mar, [facility] [place] [facility] [address] [id number] [place] [address] 2946 Mar, [facility] [place] [facility] [address] [id number] [place] [address] 2936 23 Mar, 2012 [facility] [place] [facility] [address] [facility] [id number] [place] [address]246 Mar, [facility] [place] [facility] [address] [id number] [place] [address]322 19 Mar, 2012 [facility] [place] [facility] [address] [id number] [place] [address]- 9773 16 Mar, 2012 [facility] [place] [facility] [address] [id number] [place] [address]- 9453 16 Mar, 2012 [facility] [place] [facility] [address] [id number] [place] [address] 04 Mar, 2012 [facility] [place] [facility] [address] [id number], [place] [address] 28 Sep, 2011 [facility] [place] [facility] [address] [id number] [place] [address]408 27 Sep, 2011 [facility] [place] [facility] [address] [id number] [place] [address]- [address]99 27 Sep, 2011 [facility] [place] [facility] [address] [id number], [place] [address] 26 Sep, 2011 [facility] [place] [facility] [address] [id number], [place] [address]44 24 Sep, 2011 [facility] [place] [facility] [address] [id number] [place] [address] 2546 19 Sep, 2011 [facility] [place] [facility] [address] [facility] [id number], [place] [address] 18 Sep, 2011 [facility] [place] [facility] [address] [id number] [address] 18 Sep, 2011 [facility] [place] [facility] [address] [id number] [place] [address] 73[address] Feb, [facility] [address] [id number] [place] [address] Jan, [facility] [place] [facility] [address] [id number] [place] [address] Jan, [facility] [address] [id number] [place] [address] 4116 Jan, [facility] [place] [facility] [address] [id number] [place] [address] 9610 Jan, [facility] [place] [facility] [address] [id number] [place] [address] 1391 Dec, [facility] [place] [facility] [address] [id number] [place] [address]- 4[address] Dec, [facility] [address] [id number] [place] [address]- 2154 Dec, [facility] [address] [id number] [place] [address]- 7608 Dec, [facility] [place] [facility] [address] [id number] [place] [address]- [address] Dec, [facility] [address] [id number] [place] [address]- 7044 Dec, [facility] [place] [facility] [address] [id number] [place] [address]- 7433 Dec, [facility] [place] [facility] [address] [id number] [place] [address]- 7070 Dec, [facility] [place] [facility] [address] [id number] [place] [address]- 3769 Dec, [facility] [place] [facility] [address] [id number] [place] [address]- 6844 Dec, [facility] [place] [facility] [address] [id number] [place] [address]- 3332 Dec, [facility] [place] [facility] [address] [id number] [place] [address]- 5016 Dec, [facility] [place] [facility] [address] [id number] [place] [address]- 1312 Dec, [facility] [place] [facility] [address] [id number] [place] [address]- 8331 Dec, [facility] [place] [facility] [address] [id number] [place] [address]- 9722 Nov, [facility] [place] [facility] [address] [id number] [place] [address]- 4038 Nov, [facility] [place] [facility] [address] [id number] [place] [address]- 1256 Nov, [facility] [place] [facility] [address] [id number] [place] [address]- 0728 Nov, [facility] [place] [facility] [address] [id number] [place] [address]- 0662 Nov, [facility] [place] [facility] [address] [id number] [place] [address]- 3849 Nov, [facility] [place] [facility] [address] [id number] [place] [address]- 8410 October, [facility] [place] [facility] [address] [id number] [place] [address]- 1504 October, [facility] [place] [facility] [address] [id number] [place] [address]- 3968 October, [facility] [place] [facility] [address] [id number] [place] [address]- 2917 October, [facility] [place] [facility] [address] [id number] [place] [address]- 7546 Sep, [facility] [place] [facility] [address] [id number] [place] [address]- 2596 Sep, [facility] [place] [facility] [address] [id number], [place] [address]- 8022 13 Sep, 2011 [facility] [address] [id number] [place] [address]- 5148 Sep, [facility] [address] [facility] [id number], [place] [address]- 9[address] Sep, [facility] [address] [facility] [id number] [place] [address]- 3531 Aug, [facility] [address] [id number] [address]- 8922 Aug, [facility] [address] [facility] [id number] [place] [address]- 6990 Aug, [facility] [address] [facility] [id number], [place] [address]366 Aug, [facility] [address] [id number] [address] Aug, [facility] [address] [facility] [id number] [address] Aug, [facility] [address] [id number] [address] Aug, [facility] [address] [facility] [id number], [place] [address] 16 Jul, 2011 [facility] [address] [facility] [id number][place] [address] 16 Jul, 2011 [facility] [address] [facility] [id number] [address] 15 Jul, 2011 [facility] [address] [facility] [id number], [place] [address] Jul, [facility] [address] [facility] [id number], [place] [address] 24 Jun, 2011 [facility] [address] [place] [id number] Jun, [facility] [address] [facility] [id number] [place] [address] Jun, [facility] [address] [id number] [place] [address] Jun, [facility] [address] [id number] [place] [address] Jun, [facility] [address] [id number] [place] [address] Jun, [facility] [address] [id number] [place] [address] Jun, [facility] [address] [id number] [place] [address] Jun, [facility] [address] [id number] [place] [address] May, [facility] [address] [id number] [place] [address] May, [facility] [address] [id number] [place] [address] May, [facility] [address] [id number] [place] [address] May, [facility] [address] [id number] [place] [address] May, [facility] [address] [id number] [place] [address] May, [facility] [address] [id number] [place] [address] May, [facility] [address] [id number] [place] [address] 29 Apr, 2011 [facility] [address] [id number] [place] [address] Apr, [facility] [address] [id number] [place] [address] 14[address] Apr, [facility] [place] [facility] [address] [id number] [place] [address] 27 Mar, 2011 [facility] [place] [facility] [address] [id number] [place] [address] 20 Mar, 2011 [facility] [place] [facility] [address] [id number] [place] [address] 14 Mar, 2011 [facility] [place] [facility] [address] [id number] [place] [address] 11 Mar, 2011 [facility] [place] [facility] [address] [id number] [place] [address] Mar, [facility] [place] [facility] [address] [id number] [place] [address] 10 Mar, 2011 [facility] [place] [facility] [address] [id number] [place] [address] Mar, [facility] [place] [facility] [address] [id number] [place] [address] Jan, [facility] [place] [facility] [address] [id number] [place] [address] May, [facility] [place] [facility] [address] [id number] [place] [address] May, [facility] [place] [facility] [address] [id number] [place] [address] 13 May, 2010 [facility] [place] [facility] [address] [id number], [place] [address] 13 May, 2010 [facility] [place] [facility] [address] [id number] [place] [address] 10 May, 2010 [facility] [place] [facility] [address] [id number] [place] [address] 06 May, 2010 [facility] [place] [facility] [address] [id number] [place] [address] 29 Apr, 2010 [facility] [place] [facility] [address] [id number] [address] Apr, [facility] [address] [facility] [id number], [place] [address] Apr, [facility] [address] [facility] [id number], [place] [address] Apr, [facility] [id number], [place] [address] Apr, [facility] [address] [facility] [id number], [place] [address]44 Apr, [facility] [address] [facility] [id number] [address] Apr, [facility] [address] [facility] [id number], [place] [address] Apr, [facility] [id number], [place] [address] Apr, [facility] [id number] [address] Apr, [facility] [id number] [address] Mar, [facility] [id number], [place] [address] Mar, [facility] [id number], [place] [address] Mar, [facility] [id number], [place] [address] Mar, [facility] [id number], [place] [address] Mar, [facility] [address] [facility] [id number], [place] [address] Dec, [facility] [address] [id number] [address] Nov, IMMUNIZATIONS Vaccine Route Administration Date Status PCV 13 IM Intramuscular May 13, 2017 Administered SOCIAL HISTORY Never Assessed REASON FOR VISIT Pain management (chronic)--Romeo Hudson MA PLAN OF CARE Activity Details Follow Up 2 Months Reason: VITAL SIGNS Height 62 in 2017-05-13 Weight 117.7 lbs 2017-05-13 Temperature 97.6 degrees Fahrenheit 2017-05-13 Heart Rate 62 bpm 2017-05-13 Respiratory Rate 18 2017-05-13 BMI 21.53 kg/m2 2017-05-13 Blood pressure systolic 118 mmHg 2017-05-13 Blood pressure diastolic 78 mmHg 2017-05-13 MEDICATIONS Medication Instructions Dosage Frequency Start Date End Date Duration Status Ibuprofen 200 mg Orally every 8 hours as needed for headache 2 tablets Active Vitamin B-12 1000 MCG/ML Injection every 14 days 1 ml Active Flonase Allergy Relief Active Refresh Liquigel 1 % Ophthalmic 4 times a day 1 drop into affected eye as needed 6h Active Clorazepate Dipotassium 3.75 MG Orally Twice a day 1` tablets 12h 28 Active Metoprolol Tartrate 25 MG Orally Twice a day 1 tablet with food 12h Active Vitamin D (Ergocalciferol) 16988 UNIT Orally 2 times a day every 7 days 1 capsule Active Fentanyl 75 MCG/HR Transdermal every 72 hours 1 patch to skin Apr, 30 days Active Restasis 0.05 % 1 DROP EACH EYE TWICE DAILY 30 Active Topamax 100 MG Orally Twice a day 1 tablet 12h Active Bisacodyl 10 MG Rectal Once a day 1 suppository as needed 24h Active Fioricet 50-300-40 MG Orally every 6 hrs 1 capsule as needed 6h Active Melatonin 5 MG Orally at bedtime 1 tablet 30 days Active Folic Acid 1 MG TAKE 1 TABLET BY MOUTH EVERY DAY 30 Active Tylenol 325 MG Orally every 6 hrs as needed for headache 2 tablets as needed Not-Taking Zofran ODT 4 MG Orally every 8 hrs 1 tablet on the tongue and allow to dissolve 8h Active Lipitor 40 MG Orally Once a day 1 tablet 24h Active Omeprazole Magnesium 20.6 (20 Base) MG Orally Once a day 1 capsule 24h Active Nitro-Dur 0.2 MG/HR Transdermal Once a day 1 patch to skin remove after 12 hours 24h Active Phenytoin 50 MG TAKE 1 TABLET BY MOUTH EVERY DAY 30 Active Fexofenadine HCl 180 MG Orally Once a day 1 tablet 24h Active Endtsjxnou-WNPG-Njhyazzk 50-300-40 MG TAKE 1 CAPSULE BY MOUTH EVERY SIX HOURS NEEDED 15 Not-Taking Phenytoin 100 MG/4ML Orally at bedtime 150mg Active Saline Mist Dilworth 0.65 % Nasally 1 spray in both nostrils every 4 hours 1 Dilworth Active Coumadin 1 MG Orally Once a day 1mg on Sun, , Jennifer, 1.5mg on Mond, sat, Sat, saturday 24h Active Gabapentin 400 MG TAKE 1 CAPSULE BY MOUTH AT BEDTIME 30 Active MiraLax Active Lamotrigine 100 mg Orally 2 times a day 1 tablet 12h Active Phenytoin Sodium Extended 100 MG TAKE 1 CAPSULE BY MOUTH AT BEDTIME 30 Active Tussin Cough DM 100-10 MG/5ML Orally every 6 hrs as needed for cough 10 ml as needed Active Hydrocortisone 2.5 % Externally every 24 hours as needed for dry skin 1 application to affected area Active Citalopram Hydrobromide 20 MG Orally Once a day 1 tablet 24h 030 days Active Sodium Bicarbonate 650 MG Orally Once a day 1 tablet 24h Active RESULTS No Results PROCEDURES Procedure Date Ordered Result Body Site PCV 13 May 13, 2017 SINGLE IMMUNIZATION ADMIN May 13, 2017 [facility] VISIT NEW PATIENT May 13, 2017 INSTRUCTIONS MEDICATIONS ADMINISTERED No Known Medications [...] surgery and skin graft, cholecysectomy Hospitalization History [facility] 12/2016 [facility]ization History [facility] 08/2017
--- OUTSIDE RECORDS SUMMARY | 2018-02-04 13:28 | XMS REPORT ---
Author Author KATHYCRICKETA Organization [facility] Address [address] [place] [address] Care Team Providers Care Investor Relations Coordinator Name Role Phone ESTRELLITACRICKET ADANA Unavailable PROBLEMS Type Condition ICD9-CM Code YDG27-DB Code Onset Dates Condition Status SNOMED Code Problem Chronic kidney disease, unspecified stage N18.9 Active 965548161 Problem History of colon polyps Z86.010 Active 077321389 Problem Gastroesophageal reflux disease without esophagitis K21.9 Active 224016510 Problem Iron deficiency anemia, unspecified iron deficiency anemia type D50.9 Active 07377678 Problem Anxiety F41.9 Active 66144425 Problem Personality disorder F60.9 Active 28747338 Problem Anemia, unspecified type D64.9 Active 555008729 Problem Age-related osteoporosis without current pathological fracture M81.0 Active 96517488 Problem Factitious disorder imposed on self, recurrent episode F68.10 Active 60645938 Problem Back pain M54.9 Active 957101332 Problem History of CVA with residual deficit I69.30 Active 680193496 Problem Insomnia, unspecified type G47.00 Active 075865161 Problem Seizure disorder G40.909 Active 276108051 Problem Perennial allergic rhinitis, unspecified allergic rhinitis trigger J30.89 Active 493127569 ALLERGIES No Information ENCOUNTERS Encounter Location Date Diagnosis [place] [id number] [address] Dec, [place] [id number] [place] [address] 88856- 9597 October, [place] [id number] [place] [address] 59643- 9670 Sep, [place] [address] [address] Sep, [facility] [id number] [address] 7243 Sep, [facility] [address] [address] 9782 Sep, [facility] [id number] [address] Sep, [facility] [address] [address] Aug, [facility] [id number] [address] 4698 Aug, Back pain M54.9 [facility] [address] [address] Aug, Factitious disorder imposed on self, recurrent episode F68.10 ; Personality disorder F60.9 ; Insomnia, unspecified type G47.00 and Anxiety F41.9 [facility] [id number] [address] Aug, Back pain M54.9 ; Iron deficiency anemia, unspecified iron deficiency anemia type D50.9 ; Chronic kidney disease, unspecified stage N18.9 and Breast cancer screening Z12.31 [facility] [id number] [id number] Jul, Back pain M54.9 [facility] [address] [id number] [address] Jul, [facility] [address] [id number] [id number] Jul, [facility] [address] [id number] [id number] Jun, Back pain M54.9 [facility] [id number] [place] [id number] Jun, [facility] [address] [id number] [address] Jun, Back pain M54.9 [facility] [address] [address] 2416 Jun, Back pain M54.9 ; Seizure disorder G40.909 and Age-related osteoporosis without current pathological fracture M81.0 [facility] [id number] [place] [address] [id number] May, [facility] [id number] [place] [address] 04061- 3397 May, Back pain M54.9 [facility] [id number] [place] [address] 54337- 2629 Apr, Back pain M54.9 ; Encounter for immunization Z23 ; Gastroesophageal reflux disease without esophagitis K21.9 ; Age-related osteoporosis without current pathological fracture M81.0 and Chronic pruritus L29.9 [facility] [address] [place] [address] 80191- 7051 Apr, History of CVA with residual deficit I69.30 [facility] [id number] [place] [address] 03883- 5586 Apr, Factitious disorder imposed on self, recurrent episode F68.10 and Personality disorder F60.9 [facility] [id number] [place] [address] [id number] Apr, Back pain M54.9 [facility] [address] [address] 7152 Mar, Factitious disorder imposed on self, recurrent episode F68.10 [facility] [address] [address] 9395 Mar, [facility] [id number] [place] [address] [id number] Mar, [facility] [id number] [place] [address] [id number] Mar, Back pain M54.9 [facility] [id number] [place] [address] 39885- 5436 Mar, Back pain M54.9 ; Seizure disorder G40.909 and Age-related osteoporosis without current pathological fracture M81.0 [facility] [address] [place] [address] 64648- 6067 Feb, History of CVA with residual deficit I69.30 [facility] [address] [place] [address] 13244- 8036 Feb, Factitious disorder imposed on self, recurrent episode F68.10 and Personality disorder F60.9 [facility] [id number] [place] [address] 43982- 0971 15 Feb, 2017 Back pain M54.9 [facility] [address] [id number] [place] [address] 52808- 7057 Feb, [place] [address] [id number] [place] [address] 60620- 3826 Jan, [facility] [address] [place] [id number] Jan, Age- related osteoporosis without current pathological fracture M81.0 and Allergic state, subsequent encounter T78.40XD [facility] [address] [id number] [place] [address] 12945- 4301 Jan, Factitious disorder imposed on self, recurrent episode F68.10 and Personality disorder F60.9 [facility] [address] [address]- 3806 Dec, Back pain M54.9 [facility] [address] [place] [address] 01933- 7598 Dec, Personality disorder F60.9 and Factitious disorder imposed on self, recurrent episode F68.10 [facility] [id number] [place] [address] [id number] Dec, Back pain M54.9 [facility] [id number] [place] [address] [id number] Dec, [place] [id number] [address] Dec, [facility] [address] [address]- 9993 Dec, [facility] [address] [address]- 9840 Nov, [facility] [address] [address]- 8161 Nov, Back pain M54.9 ; Anemia, unspecified type D64.9 and History of colon polyps Z86.010 [facility] [address] [address] 3715 Nov, Back pain M54.9 [facility] [address] [id number] [address] October, Back pain M54.9 [facility] [address] [place] [address] [id number] October, Back pain M54.9 and Gastroesophageal reflux disease without esophagitis K21.9 [facility] [id number] [place] [id number] Sep, [facility] [address] [address]- 3271 Sep, [facility] [address] [address]- 9181 Sep, [facility] [address] [address]- 2742 Sep, [facility] [address] [id number] [address]- 4331 Sep, [facility] [address] [address] 1847 Sep, Seizure disorder G40.909 [facility] [address] [address]- 5637 Sep, Back pain M54.9 [facility] [address] [address]- 1034 Sep, [facility] [address] [place] [address] 71763- 6150 31 Aug, 2016 Back pain M54.9 [facility] [address] [address]- 1417 Aug, Seizure disorder G40.909 [facility] [id number] [place] [address] [id number] 17 Aug, 2016 [facility] [id number] [place] [address] [id number] 16 Aug, 2016 Back pain M54.9 [facility] [id number] [place] [address] [id number] 14 Aug, 2016 Back pain M54.9 [facility] [id number] [place] [address] [id number] 06 Aug, 2016 Back pain M54.9 [facility] [address] [place] [address] [id number] Jul, Weakness R53.1 [facility] [address] [place] [address] 21289- 1987 Jul, Seizure disorder G40.909 [facility] [address] [address]- 5491 Jul, [facility] [address] [address]- 6931 Jul, Breast cancer screening Z12.39 [facility] [address] [address]- 1764 Jul, [facility] [address] [address]- 1978 Jul, [facility] [address] [address]- 0474 Jul, [facility] [id number] [place] [address] 49674- 8578 Jul, Seizure disorder G40.909 ; Fatigue, unspecified type R53.83 ; Perennial allergic rhinitis, unspecified allergic rhinitis trigger J30.89 and Chronic kidney disease, unspecified stage N18.9 [facility] [id number] [place] [address] 68117- 9397 Jul, [facility] [id number] [place] [address] 35044- 4779 Jul, Seizure disorder G40.909 [facility] [address] [id number] [place] [address] 75988- 9240 Jun, [facility] [address] [id number] [place] [address] 79634- 5809 Jun, [address] [id number] Jun, Perennial allergic rhinitis, unspecified allergic rhinitis trigger J30.89 [facility] [id number] [place] [address] [id number] Jun, [facility] [id number] [place] [address] 32126- 5752 Jun, Seizure disorder G40.909 [facility] [id number] [place] [address] [id number] Jun, [facility] [id number] [place] [address] [id number] May, [facility] [id number] [place] [address] 42230- 5867 May, [facility] [id number] [place] [address] 26695- 0763 May, [facility] [id number] [place] [address] 99621- 7609 May, [facility] [address] [place] [address] 49416- 0452 May, History of CVA with residual deficit I69.30 [facility] [address] [address]- 7906 May, [facility] [id number] [place] [address] 08617- 0538 May, [facility] [id number] [place] [address] 42438- 5508 May, [facility] [id number] [place] [address] 69114- 9031 May, Seizure disorder G40.909 [facility] [id number] [place] [address] 27425- 7978 May, [employer] [address] [place] [address] May, Back pain M54.9 and Seizure disorder G40.909 [facility] [id number] [place] [address] 24540- 3358 Apr, [facility] [address] [place] [address] 58889- 2071 Apr, Back pain M54.9 [facility] [id number] [place] [address] 74311- 1448 Mar, [employer] [address] [place] [address] Mar, Insomnia, unspecified type G47.00 [facility] [address] [place] [address] 49768- 5858 Mar, [facility] [address] [place] [address] 96355- 3983 Feb, [facility] [id number] [place] [address] 27413- 7820 21 Feb, 2016 [facility] [address] [place] [address] 21494- 6295 16 Feb, 2016 [facility] [id number] [place] [address] 24769- 4661 Jan, [facility] [address] [place] [address] 52301- 8275 Jan, [facility] [address] [place] [address] Jan, Seizure disorder G40.909 and Back pain M54.9 [facility] [id number] [place] [address] 96686- 3778 Dec, [facility] [id number] [place] [address] 69549- 6581 Dec, [facility] [id number] [place] [address] 40913- 5555 Dec, [facility] [id number] [place] [address] 06412- 1471 Nov, [facility] [id number] [place] [address] 72710- 3508 Nov, [facility] [id number] [place] [address] 69262- 0010 Nov, Back pain M54.9 [facility] [id number] [place] [address] 14972- 8905 October, [facility] [id number] [place] [address] 75950- 9227 October, Back pain M54.9 [facility] [id number] [place] [address] 06324- 4786 October, Seizure disorder G40.909 and B12 deficiency E53.8 [facility] [id number] [place] [address] 01414- 0787 Sep, History of CVA with residual deficit I69.30 [facility] [id number] [place] [address] 32721- 7416 Sep, [facility] [id number] [place] [address] 16777- 2407 Sep, [facility] [address] [address]- 0117 Sep, Back pain M54.9 [facility] [id number] [place] [address] 57194- 3985 Sep, Seizure disorder G40.909 [facility] [address] [place] [address] 69398- 1853 25 Aug, 2015 Back pain M54.9 [facility] [id number] [place] [address] 78669- 7930 18 Aug, 2015 Seizure disorder G40.909 [facility] [id number] [place] [address] 75378- 2804 16 Aug, 2015 Back pain M54.9 [facility] [id number] [place] [address] 35000- 5396 14 Aug, 2015 Heart failure, unspecified I50.9 [facility] [id number] [place] [address] 41042- 1396 14 Aug, 2015 Medication monitoring encounter Z51.81 [facility] [id number] [place] [address] 75319- 4911 15 Jul, 2015 [facility] [id number] [place] [address] 61490- 4983 09 Jul, 2015 Seizure disorder G40.909 [facility] [address] [place] [address] 28876- 4467 05 Jul, 2015 Back pain M54.9 [facility] [address] [place] [address] 31463- 7336 Jun, [facility] [id number] [place] [address] 18863- 4895 Jun, [facility] [address] [place] [address] 37107- 9942 Jun, Mental status change R41.82 ; History of CVA with residual deficit I69.30 ; Back pain M54.9 and Seizure disorder G40.909 [facility] [address] [address]- 3212 Jun, [facility] [address] [address]- 7922 May, [facility] [address] [address]- 3590 Apr, [facility] [id number] [place] [address] 97907- 8044 Apr, Medication monitoring encounter Z51.81 [facility] [id number] [place] [address] 59231- 7633 Mar, Vomiting R11.10 [facility] [address] [address]- 6455 Mar, [facility] [id number] [place] [address] 25762- 0513 Feb, [facility] [address] [address]- 8356 Feb, UTI (urinary tract infection) 599.0 [facility] [address] [address]- 2643 Jan, [facility] [address] [address]- 5341 Jan, [facility] [address] [address]- 7852 Jan, [facility] [address] [address]- 3336 Dec, [facility] [address] 2031 Dec, [facility] [address] 7136 Dec, [facility] [address] [id number] [place] [address]- 2252 Dec, [facility] [place] [facility] [address] [id number] [place] [address]- 4025 Nov, UNKNOWN Nov, [facility] [place] [facility] [address] [id number] [place] [address]- 4256 October, [facility] [place] [facility] [address] [id number] [place] [address]- 3318 Sep, [facility] [place] [facility] [address] [id number] [place] [address]- 3740 Sep, [facility] [place] [facility] [address] [id number] [place] [address]- 7541 Aug, [facility] [place] [facility] [address] [facility] [id number] [place] [address]- 0057 Aug, [facility] [place] [facility] [address] [id number] [place] [address]- 1258 Jul, [facility] [place] [facility] [address] [id number] [place] [address]- 0162 Jul, [facility] [place] [facility] [address] [id number] [place] [address]- 1810 Jul, [facility] [place] [facility] [address] [facility] [id number] [place] [address]- 1989 Jul, [facility] [place] [facility] [address] [id number] [place] [address]- 2744 Jul, [facility] [place] [facility] [address] [id number] [place] [address]- 1821 Jun, [facility] [place] [facility] [address] [id number] [place] [address]- 5676 Jun, [facility] [place] [facility] [address] [id number] [place] [address]- 4596 Jun, [facility] [place] [facility] [address] [id number] [place] [address]- 9316 Jun, [facility] [place] [facility] [address] [id number] [place] [address]- 1640 Jun, [facility] [place] [facility] [address] [id number] [place] [address]- 9872 Jun, [facility] [place] [facility] [address] [id number] [place] [address]- 4034 Jun, [facility] [place] [facility] [address] [id number] [place] [address]- 3211 Jun, [facility] [place] [facility] [address] [id number] [place] [address]- 4744 Jun, [facility] [place] [facility] [address] [id number] [place] [address]- 3464 Jun, [facility] [place] [facility] [address] [id number] [place] [address]- 5611 Jun, [facility] [place] [facility] [address] [id number] [place] [address]- 7984 Jun, [facility] [place] [facility] [address] [id number] [place] [address]- 3930 Jun, [facility] [place] [facility] [address] [id number] [place] [address]- 2146 Jun, [facility] [place] [facility] [address] [id number] [address]- 1696 Jun, [facility] [place] [facility] [address] [id number] [address]- 7947 Jun, [facility] [place] [facility] [address] [id number] [place] [address]- 9536 Jun, [facility] [place] [facility] [address] [id number] [place] [address]- 2949 Jun, [facility] [place] [facility] [address] [id number] [place] [address]- 9320 May, [facility] [place] [facility] [address] [id number] [place] [address]- 9477 30 May, 2014 [facility] [address] [id number] [place] [address] May, [facility] [address] [id number] [place] [address] May, [facility] [address] [id number] [place] [address] May, [facility] [address] [id number] [place] [address] May, [facility] [address] [id number] [place] [address] May, [facility] [address] [id number] [place] [address] May, [facility] [address] [id number] [place] [address] May, [facility] [address] [place] [id number] May, [facility] [address] [id number] [place] [address] May, [facility] [address] [id number] [place] [address] May, [facility] [address] [id number] [place] [address] May, [facility] [address] [id number] [place] [address] Apr, [facility] [address] [id number] [place] [address] Apr, [facility] [address] [id number] [place] [address] Apr, [facility] [address] [id number] [place] [address] Apr, [facility] [place] [facility] [address] [id number] [place] [address] Apr, [facility] [place] [facility] [address] [id number] [place] [address] Apr, [facility] [place] [facility] [address] [id number] [place] [address] Mar, [facility] [place] [facility] [address] [id number] [place] [address] Mar, [facility] [place] [facility] [address] [id number] [place] [address] Mar, [facility] [place] [facility] [address] [id number] [place] [address] Mar, [facility] [place] [facility] [address] [id number] [place] [address] Mar, [facility] [place] [facility] [address] [id number] [place] [address] Mar, [facility] [place] [facility] [address] [id number] [place] [address]12 24 Feb, 2014 [facility] [place] [facility] [address] [id number] [place] [address]45 24 Feb, 2014 [facility] [place] [facility] [address] [id number] [place] [address] 0793 Feb, [facility] [place] [facility] [address] [id number] [place] [address] 5422 23 Feb, 2014 [facility] [place] [facility] [address] [id number] [place] [address] 2543 19 Feb, 2014 [facility] [place] [facility] [address] [id number] [place] [address] 2546 19 Feb, 2014 [facility] [place] [facility] [address] [id number] [place] [address]- 2545 19 Feb, 2014 [facility] [place] [facility] [address] [id number] [place] [address] 7025 Feb, [facility] [place] [facility] [address] [id number] [place] [address] 3650 Feb, [facility] [place] [facility] [address] [id number] [place] [address] Feb, [facility] [address] [id number] Feb, [facility] [place] [facility] [address] [id number] [place] [address] 2032 Feb, [facility] [place] [facility] [address] [id number] [place] [address]- 6916 Jan, [facility] [place] [facility] [address] [id number] [place] [address]- 0181 Jan, [facility] [place] [facility] [address] [id number] [place] [address]- 1411 Dec, [facility] [place] [facility] [address] [id number] [place] [address]- 4160 Dec, [facility] [place] [facility] [address] [id number] [place] [address]- 9609 Dec, [facility] [place] [facility] [address] [id number] [place] [address]- 7674 Dec, [facility] [place] [facility] [address] [id number] [place] [address]- 1103 Dec, [facility] [place] [facility] [address] [id number] [place] [address]- 3270 Dec, [facility] [place] [facility] [address] [id number] [place] [address]- 1611 Dec, [facility] [place] [facility] [address] [id number] [place] [address]- 0506 Dec, [facility] [place] [facility] [address] [id number] [place] [address]- 6048 Dec, [facility] [place] [facility] [address] [id number] [place] [address] 5752 Dec, [facility] [place] [facility] [address] [id number] [place] [address]- 4852 Nov, [facility] [place] [facility] [address] [id number] [place] [address]- 1198 Nov, [facility] [place] [facility] [address] [id number] [place] [address]- 2595 Nov, [facility] [place] [facility] [address] [id number] [place] [address]- 4323 Nov, [facility] [place] [facility] [address] [id number] [place] [address]- 7816 Nov, [facility] [place] [facility] [address] [id number] [place] [address]- 0313 Nov, [facility] [place] [facility] [address] [id number] [place] [address]- 4204 Nov, [facility] [place] [facility] [address] [id number] [place] [address]- 9667 Nov, [facility] [place] [facility] [address] [id number] [place] [address]- 3944 Nov, [facility] [place] [facility] [address] [id number] [place] [address]- 0152 Nov, [facility] [place] [facility] [address] [id number] [place] [address]- 5306 Nov, [facility] [place] [facility] [address] [id number] [place] [address]- 9936 Nov, [facility] [place] [facility] [address] [id number] [place] [address]- 1735 Nov, [facility] [place] [facility] [address] [id number] [place] [address]- 4308 Nov, [facility] [place] [facility] [address] [id number] [place] [address]- 2381 October, [facility] [place] [facility] [address] [id number] [place] [address]- 8594 October, [facility] [place] [facility] [address] [id number] [place] [address]- 3491 October, [facility] [place] [facility] [address] [id number] [place] [address]- 3724 October, [facility] [place] [facility] [address] [id number] [place] [address]- 8895 October, [facility] [place] [facility] [address] [id number] [place] [address]- 8070 October, [facility] [place] [facility] [address] [id number] [place] [address]- 6734 October, [facility] [place] [facility] [address] [id number] [place] [address]- 5252 October, [facility] [place] [facility] [address] [id number] [place] [address]- 7846 October, [facility] [place] [facility] [address] [id number] [place] [address]- 0784 October, [facility] [place] [facility] [address] [id number] [place] [address]- 9154 Sep, [facility] [place] [facility] [address] [id number] [place] [address]- 9427 29 Sep, 2013 [facility] [place] [facility] [address] [id number] [place] [address]- 5428 Sep, [facility] [place] [facility] [address] [id number] [place] [address]- 0545 Sep, [facility] [place] [facility] [address] [id number] [place] [address]- 2934 Sep, [facility] [place] [facility] [address] [id number] [place] [address]- 7026 Sep, [facility] [place] [facility] [address] [id number] [place] [address]- 6512 Sep, [facility] [place] [facility] [address] [id number] [place] [address]- 8492 Sep, [facility] [place] [facility] [address] [id number] [place] [address]- 2716 Sep, [facility] [place] [facility] [address] [id number] [place] [address]- 8050 Sep, [facility] [place] [facility] [address] [id number] [place] [address]- 3944 Aug, [facility] [place] [facility] [address] [id number] [place] [address]- 5556 Aug, [facility] [place] [facility] [address] [id number] [place] [address]- 0349 Aug, [facility] [place] [facility] [address] [id number] [place] [address]- 4521 Aug, [facility] [place] [facility] [address] [id number] [place] [address]- 9761 Aug, [facility] [place] [facility] [address] [id number] [place] [address]- 7407 Aug, [facility] [place] [facility] [address] [id number] [place] [address]- 2526 Aug, [facility] [place] [facility] [address] [id number] [place] [address]- 4441 Aug, [facility] [place] [facility] [address] [id number] [place] [address]- 7555 Aug, [facility] [place] [facility] [address] [id number] [place] [address]- 8510 Jul, [facility] [place] [facility] [address] [id number] [place] [address]- 0510 Jul, [facility] [place] [facility] [address] [id number] [place] [address]- 6298 Jul, [facility] [place] [facility] [address] [id number] [place] [address]- 8675 Jul, [facility] [place] [facility] [address] [id number] [place] [address]- 7818 Jul, [facility] [place] [facility] [address] [id number] [place] [address]- 2556 Jul, [facility] [place] [facility] [address] [id number] [place] [address]- 4230 Jul, [facility] [place] [facility] [address] [id number] [place] [address]- 9245 Jul, [facility] [place] [facility] [address] [id number] [place] [address]- 1762 Jul, [facility] [place] [facility] [address] [facility] [id number] [place] [address]- 0337 Jul, [facility] [place] [facility] [address] [id number] [place] [address]- 9774 Jul, [facility] [place] [facility] [address] [facility] [id number] [place] [address]- 8070 Jul, [facility] [place] [facility] [address] [facility] [id number] [place] [address]- 7669 Jul, [facility] [place] [facility] [address] [facility] [id number] [place] [address]- 7332 Jul, [facility] [place] [facility] [address] [id number] [place] [address]- 4947 Jul, [facility] [place] [facility] [address] [facility] [id number] [place] [address]- 6532 Jul, [facility] [place] [facility] [address] [id number] [place] [address]- 5640 Jun, [facility] [place] [facility] [address] [facility] [id number] [place] [address]- 4763 Jun, [facility] [place] [facility] [address] [facility] [id number] [place] [address]- 1310 Jun, [facility] [address] [id number] [place] [address]- 6505 Jun, [facility] [place] [facility] [address] [id number] [place] [address]- 4093 Jun, [facility] [place] [facility] [address] [facility] [id number] [place] [address]- 8063 Jun, [facility] [place] [facility] [address] [id number] [place] [address]- 8731 May, [facility] [place] [facility] [address] [id number] [place] [address]- 4208 May, [facility] [place] [facility] [address] [id number] [place] [address]- 3291 May, [facility] [place] [facility] [address] [facility] [id number] [place] [address]- 6544 May, [facility] [place] [facility] [address] [id number] [place] [address]- 2967 Apr, [facility] [place] [facility] [address] [id number] [place] [address]- 0137 Apr, [facility] [place] [facility] [address] [facility] [id number] [place] [address]- 8373 Apr, [facility] [place] [facility] [address] [id number] [place] [address]- 7772 Apr, [facility] [place] [facility] [address] [id number] [place] [address]- 1564 Apr, [facility] [place] [facility] [address] [id number] [place] [address]- 0307 Apr, [facility] [place] [facility] [address] [facility] [id number] [place] [address]- 6905 Apr, [facility] [place] [facility] [address] [facility] [id number] [place] [address]- 7339 Apr, [facility] [place] [facility] [address] [id number] [place] [address]- 5249 18 Apr, 2013 [facility] [place] [facility] [address] [id number] [place] [address]- 6024 18 Apr, 2013 [facility] [place] [facility] [address] [id number] [place] [address]- 1861 Apr, [facility] [place] [facility] [address] [id number] [place] [address]- 5564 Apr, [facility] [place] [facility] [address] [id number] [place] [address]- 8178 28 Mar, 2013 [facility] [place] [facility] [address] [id number] [place] [address]- 9244 28 Mar, 2013 [facility] [place] [facility] [address] [id number] [place] [address]- 7001 16 Mar, 2013 [facility] [place] [facility] [address] [id number] [place] [address]- 9704 16 Mar, 2013 [facility] [place] [facility] [address] [id number] [place] [address]- 6775 15 Mar, 2013 [facility] [place] [facility] [address] [id number] [place] [address]- 5636 15 Mar, 2013 [facility] [place] [facility] [address] [id number] [place] [address]- 1783 27 Feb, 2012 [facility] [place] [facility] [address] [id number] [place] [address]- 2549 25 Sep, 2012 [facility] [place] [facility] [address] [id number] [place] [address] 2548 25 Sep, 2012 [facility] [place] [facility] [address] [id number] [place] [address]- 2546 23 Sep, 2012 [facility] [place] [facility] [address] [id number] [place] [address]- 2546 17 Sep, 2012 [facility] [place] [facility] [address] [id number] [place] [address]- 9556 Feb, [facility] [place] [facility] [address] [id number] [place] [address]- 9006 Feb, [facility] [place] [facility] [address] [id number] [place] [address]- 0885 Jan, [facility] [place] [facility] [address] [id number] [place] [address]- 5326 Jan, [facility] [place] [facility] [address] [id number] [place] [address]- 1984 Jan, [facility] [place] [facility] [address] [id number] [place] [address]- 1492 Jan, [facility] [place] [facility] [address] [id number] [place] [address]- 5694 Jan, [facility] [place] [facility] [address] [id number] [place] [address]- 4141 Jan, [facility] [place] [facility] [address] [id number] [place] [address]- 5636 Jan, [facility] [place] [facility] [address] [id number] [place] [address]- 0428 Dec, [facility] [place] [facility] [address] [id number] [place] [address]- 3371 Dec, [facility] [place] [facility] [address] [id number] [place] [address]- 2681 Dec, [facility] [place] [facility] [address] [id number] [place] [address]- 3658 Dec, [facility] [place] [facility] [address] [id number] [place] [address]- 4918 Dec, [facility] [place] [facility] [address] [id number] [place] [address]- 4950 Dec, [facility] [place] [facility] [address] [id number] [place] [address]- 7840 Nov, [facility] [place] [facility] [address] [id number] [place] [address]- 6394 Nov, [facility] [address] [id number] [place] [address]- 3570 Nov, [facility] [address] [id number] [place] [address]- 8609 Nov, [facility] [address] [id number] [place] [address]- 7045 October, [facility] [address] [id number] [place] [address]- 3957 October, [facility] [address] [id number] [place] [address]- 2551 October, [facility] [address] [id number] [place] [address]- 8532 October, [facility] [address] [id number] [place] [address]- 5462 Sep, [facility] [address] [id number] [place] [address]- 0276 Sep, [facility] [address] [id number] [place] [address]- 9252 Sep, [facility] [address] [id number] [place] [address]- 5415 Sep, [facility] [address] [id number] [place] [address]- 0366 Sep, [facility] [address] [id number] [place] [address]- 2948 Sep, [facility] [address] [id number] [place] [address]- 0614 Sep, [facility] [address] [id number] [place] [address]- 6583 Sep, [facility] [address] [id number] [place] [address]- 2684 Aug, [facility] [address] [id number] [place] [address]- 3871 13 Aug, 2012 [facility] [place] [facility] [address] [id number] [place] [address]- 7622 05 Aug, 2012 [facility] [place] [facility] [address] [id number] [place] [address]- 9012 18 Jul, 2012 [facility] [place] [facility] [address] [id number] [place] [address]- 8845 08 Jul, 2012 [facility] [place] [facility] [address] [id number] [place] [address]- 9936 07 Jul, 2012 [facility] [place] [facility] [address] [id number] [place] [address]- 8725 06 Jul, 2012 [facility] [place] [facility] [address] [id number] [place] [address]- 3866 05 Jul, 2012 [facility] [place] [facility] [address] [id number] [place] [address]- 6073 Jun, [facility] [place] [facility] [address] [id number] [place] [address]- 1974 Jun, [facility] [place] [facility] [address] [id number] [place] [address]- 4593 Jun, [facility] [place] [facility] [address] [id number] [place] [address]- 5878 May, [facility] [place] [facility] [address] [id number] [place] [address]- 7937 May, [facility] [place] [facility] [address] [id number] [place] [address]- 2799 May, [facility] [place] [facility] [address] [id number] [place] [address]- 3566 May, [facility] [place] [facility] [address] [id number] [place] [address]- 8136 May, [facility] [place] [facility] [address] [id number] [place] [address]- 7315 May, [facility] [place] [facility] [address] [id number] [place] [address]- 8703 May, [facility] [place] [facility] [address] [id number] [place] [address]- 1649 Apr, [facility] [place] [facility] [address] [facility] [id number] [place] [address]- 3598 Apr, [facility] [place] [facility] [address] [id number] [place] [address]- 3085 Apr, [facility] [place] [facility] [address] [facility] [id number] [place] [address], [place] [address]- 6493 Apr, [facility] [place] [facility] [address] [facility] [id number] [place] [address]- 8353 Apr, [facility] [place] [facility] [id number] [place] [address]- 9850 Apr, [facility] [place] [facility] [address] [facility] [id number] [place] [address]- 1069 Apr, [facility] [place] [facility] [address] [id number] [place] [address]- 5265 Apr, [facility] [place] [facility] [address] [id number] [place] [address]- 9783 Apr, [facility] [place] [facility] [address] [facility] [id number] [place] [address]- 5001 Apr, [facility] [place] [facility] [address] [facility] [id number] [place] [address]- 4576 Apr, [facility] [place] [facility] [address] [id number] [place] [address]- 4610 Mar, [facility] [place] [facility] [address] [facility] [id number] [place] [address]- 0781 Mar, [facility] [place] [facility] [address] [id number] [place] [address]- 6809 Mar, [facility] [place] [facility] [address] [id number] [place] [address]- 9674 23 Mar, 2011 [facility] [place] [facility] [address] [id number] [place] [address]- 6625 23 Mar, 2012 [facility] [place] [facility] [address] [id number] [place] [address] 23 Mar, 2012 [facility] [place] [facility] [address] [id number] [place] [address] Mar, [facility] [place] [facility] [address] [id number] [place] [address] 19 Mar, 2012 [facility] [place] [facility] [address] [id number] [place] [address] 8795 16 Mar, 2012 [facility] [place] [facility] [address] [id number] [place] [address] 16 Mar, 2012 [facility] [place] [facility] [address] [id number] [place] [address] 8583 04 Mar, 2012 [facility] [place] [facility] [address] [id number] [place] [address]44 28 Sep, 2011 [facility] [place] [facility] [address] [id number] [place] [address] 8765 27 Sep, 2011 [facility] [place] [facility] [address] [id number] [place] [address]41 27 Sep, 2011 [facility] [place] [facility] [address] [id number] [place] [address]- 2544 26 Sep, 2011 [facility] [place] [facility] [address] [id number] [place] [address] 2544 24 Sep, 2011 [facility] [place] [facility] [address] [id number] [place] [address] 2546 19 Sep, 2011 [facility] [place] [facility] [address] [id number] [place] [address] 2546 18 Sep, 2011 [facility] [place] [facility] [address] [id number] [place] [address] Feb, [facility] [place] [facility] [address] [id number] [place] [address] 2799 Feb, [facility] [place] [facility] [address] [id number] [place] [address] 3968 Jan, [facility] [place] [facility] [address] [id number] [place] [address] Jan, [facility] [place] [facility] [address] [id number] [place] [address] Jan, [facility] [place] [facility] [address] [id number] [place] [address] 2070 Jan, [facility] [place] [facility] [address] [id number] [place] [address] Dec, [facility] [place] [facility] [address] [id number] [place] [address]- [address]65 Dec, [facility] [place] [facility] [address] [id number] [place] [address] Dec, [facility] [place] [facility] [address] [id number] [place] [address]- 7693 Dec, [facility] [place] [facility] [address] [id number] [place] [address] 6704 Dec, [facility] [place] [facility] [address] [id number] [place] [address]30 Dec, [facility] [place] [facility] [address] [id number] [place] [address] 6211 Dec, [facility] [place] [facility] [address] [id number] [place] [address]- 8516 Dec, [facility] [place] [facility] [address] [id number] [place] [address] 1220 Dec, [facility] [place] [facility] [address] [id number] [place] [address] 8432 Dec, [facility] [place] [facility] [address] [id number] [place] [address] 7068 Dec, [facility] [place] [facility] [address] [id number] [place] [address]- 5190 Dec, [facility] [place] [facility] [address] [id number] [place] [address]- 5966 Dec, [facility] [place] [facility] [address] [id number] [place] [address] 0216 Dec, [facility] [place] [facility] [address] [id number] [place] [address] 1346 Nov, [facility] [place] [facility] [address] [id number] [place] [address] 5623 Nov, [facility] [place] [facility] [address] [id number] [place] [address] 3129 Nov, [facility] [place] [facility] [address] [id number] [place] [address] Nov, [facility] [place] [facility] [address] [id number] [place] [address]- 3255 Nov, [facility] [place] [facility] [address] [id number] [place] [address]- 9974 Nov, [facility] [place] [facility] [address] [id number] [place] [address]- 3064 October, [facility] [place] [facility] [address] [id number] [place] [address]- 2492 October, [facility] [place] [facility] [address] [id number] [place] [address]- 7612 October, [facility] [place] [facility] [address] [id number] [place] [address]- 3544 October, [facility] [place] [facility] [address] [id number] [place] [address]- 3465 Sep, [facility] [place] [facility] [address] [id number] [place] [address] 2907 Sep, [facility] [place] [facility] [address] [id number] [place] [address]- 9852 13 Sep, 2011 [facility] [address] [id number] [place] [address]- 7990 09 Sep, 2011 [facility] [address] [id number] [place] [address]- 3176 Sep, [facility] [address] [id number] [place] [address]- 1192 Aug, [facility] [address] [id number] [place] [address] 2707 Aug, [facility] [address] [id number] [place] [address] Aug, [facility] [address] [facility] [id number] [place] [address]- 2055 Aug, [facility] [address] [id number] [place] [address] 9414 Aug, [facility] [address] [id number] [place] [address]- 5519 Aug, [facility] [address] [facility] [id number] [place] [address]- 3448 Aug, [facility] [address] [facility] [id number] [place] [address]- 7952 16 Jul, 2011 [facility] [address] [id number] [address] 16 Jul, 2011 [facility] [address] [id number] [place] [address]- 3290 15 Jul, 2011 [facility] [address] [id number] [place] [address]- [address] Jul, [facility] [facility] [address] [facility] [id number] [place] [address] Jun, [facility] [address] [place] [id number] Jun, [facility] [address] [id number] [place] [address] Jun, [facility] [place] [facility] [address] [id number] [place] [address] Jun, [facility] [place] [facility] [address] [facility] [id number] [place] [address] Jun, [facility] [place] [facility] [address] [id number] [place] [address] Jun, [facility] [address] [id number] [place] [address] Jun, [facility] [place] [facility] [address] [id number] [place] [address] Jun, [facility] [place] [facility] [address] [id number] [place] [address] May, [facility] [place] [facility] [address] [id number] [place] [address] May, [facility] [place] [facility] [address] [id number] [place] [address] May, [facility] [place] [facility] [address] [facility] [id number] [place] [address] May, [facility] [place] [facility] [address] [id number] [place] [address] May, [facility] [place] [facility] [address] [id number] [place] [address] May, [facility] [place] [facility] [address] [id number] [place] [address] May, [facility] [place] [facility] [address] [id number] [place] [address] 29 Apr, 2011 [facility] [place] [facility] [address] [id number] [place] [address] Apr, [facility] [place] [facility] [address] [id number] [place] [address] 03 Apr, 2011 [facility] [place] [facility] [address] [id number] [place] [address] 27 Mar, 2011 [facility] [place] [facility] [address] [id number] [place] [address] 20 Mar, 2011 [facility] [place] [facility] [address] [id number] [place] [address] 14 Mar, 2011 [facility] [place] [facility] [address] [id number] [place] [address]46 11 Mar, 2011 [facility] [place] [facility] [address] [id number] [place] [address] 10 Mar, 2011 [facility] [place] [facility] [address] [id number] [place] [address] 10 Mar, 2011 [facility] [place] [facility] [address] [id number] [place] [address] 10 Mar, 2011 [facility] [place] [facility] [address] [id number] [place] [address] Jan, [facility] [place] [facility] [address] [id number] [place] [address] 27 May, 2010 [facility] [place] [facility] [address] [id number] [place] [address] May, [facility] [place] [facility] [address] [id number] [place] [address] 13 May, 2010 [facility] [place] [facility] [address] [id number] [place] [address]46 13 May, 2010 [facility] [place] [facility] [address] [id number] [place] [address] 10 May, 2010 [facility] [place] [facility] [address] [id number] [place] [address] 06 May, 2010 [facility] [place] [facility] [address] [id number] [place] [address] Apr, [facility] [place] [facility] [address] [id number] [place] [address] Apr, [facility] [place] [facility] [address] [id number] [place] [address] Apr, [facility] [place] [facility] [address] [id number] [place] [address] Apr, [facility] [place] [facility] [address] [id number] [place] [address] Apr, [facility] [place] [facility] [address] [id number] [place] [address] Apr, [facility] [place] [facility] [address] [id number] [place] [address] Apr, [facility] [place] [facility] [address] [id number] [place] [address] Apr, [facility] [place] [facility] [address] [id number] [place] [address] Apr, [facility] [place] [facility] [address] [id number] [place] [address] Apr, [facility] [place] [facility] [address] [id number] [place] [address] Mar, [facility] [place] [facility] [address] [id number] [place] [address] Mar, [facility] [place] [facility] [address] [id number] [place] [address] Mar, [facility] [place] [facility] [address] [id number] [place] [address] Mar, [facility] [place] [facility] [address] [id number] [place] [address] Mar, [facility] [place] [facility] [address] [id number] [place] [address] Dec, [facility] [place] [facility] [address] [id number] [place] [address] Nov, IMMUNIZATIONS No Known Immunizations SOCIAL HISTORY Never Assessed REASON FOR VISIT f/uChaitanya Smith MA PLAN OF CARE Activity Details Follow Up 4 Weeks Reason: VITAL SIGNS Height 62 in 2017-02-12 Weight 107 lbs 2017-02-12 Heart Rate 54 bpm 2017-02-12 Respiratory Rate 22 2017-02-12 BMI 19.57 kg/m2 2017-02-12 Blood pressure systolic 110 mmHg 2017-02-12 Blood pressure diastolic 58 mmHg 2017-02-12 MEDICATIONS Medication Instructions Dosage Frequency Start Date End Date Duration Status Bisacodyl 10 MG Rectal Once a day 1 suppository as needed 24h Active Omeprazole Magnesium 20.6 (20 Base) MG Orally Once a day 1 capsule 24h Active Vitamin B-12 1000 MCG/ML Injection every 14 days 1 ml Active Metoprolol Tartrate 25 MG Orally Twice a day 1 tablet with food 12h Active Coumadin 1 MG Orally Once a day 1mg on Sat, , Sat, and Saturday, 1.5mg on Satd, sat, Fri 24h Active Melatonin 3 MG Orally Once a day 1 tablet at bedtime as needed with food 24h Active Sodium Bicarbonate 650 MG Orally Once a day 1 tablet 24h Active Clorazepate Dipotassium 3.75 MG Orally Twice a day 1` tablets 12h 28 Active Fioricet 50-300-40 MG Orally every 6 hrs 1 capsule as needed 6h Active Nitro-Dur 0.2 MG/HR Transdermal Once a day 1 patch to skin remove after 12 hours 24h Active Nissa Allergy 60 MG Orally Once a day 1 tablet 24h Active Ibuprofen 200 mg Orally every 8 hours as needed for headache 2 tablets Active Tylenol 325 MG Orally every 6 hrs as needed for headache 2 tablets as needed Active Refresh Liquigel 1 % Ophthalmic 4 times a day 1 drop into affected eye as needed 6h Active Restasis 0.05 % 1 DROP EACH EYE TWICE DAILY 30 Active Lamotrigine 100 mg Orally 2 times a day 1 tablet 12h Active Topamax 100 MG Orally Twice a day 1 tablet 12h Active Fentanyl 75 MCG/HR Transdermal every 72 hours 1 patch to skin Dec, 30 days Active Tussin Cough DM 100-10 MG/5ML Orally every 6 hrs as needed for cough 10 ml as needed Active Lipitor 40 MG Orally Once a day 1 tablet 24h Active Vitamin D (Ergocalciferol) 13027 UNIT Orally 2 times a day every 7 days 1 capsule Active Citalopram Hydrobromide 10 mg Orally Once a day 1 tablet 24h Active Phenytoin 100 MG/4ML Orally at bedtime 150mg Active Zofran ODT 4 MG Orally every 8 hrs 1 tablet on the tongue and allow to dissolve 8h Active Gabapentin 400 mg Orally at bedtime 1 tablet Active Fexofenadine HCl 180 MG Orally Once a day 1 tablet 24h Active Saline Mist [place] 0.65 % Nasally 1 spray in both nostrils every 4 hours 1 [place] Active Hydrocortisone 2.5 % Externally every 24 hours as needed for dry skin 1 application to affected area Active Folic Acid 1 MG TAKE 1 TABLET BY MOUTH EVERY DAY 30 Active RESULTS No Results PROCEDURES No Known [...] surgery and skin graft, cholecysectomy Hospitalization History [facility] [place] [facility] 12/2016
--- OUTSIDE RECORDS SUMMARY | 2018-02-04 13:29 | XMS REPORT ---
Author Author KATHYCRICKETA [facility] Address [address] [place] [address] Care Team Providers Care Assistant News Director Name Role Phone ESTRELLITALUCILA ADAN Unavailable PROBLEMS Type Condition ICD9-CM Code JSE21-ZS Code Onset Dates Condition Status SNOMED Code Problem Chronic kidney disease, unspecified stage N18.9 Active 023197949 Problem History of colon polyps Z86.010 Active 739212972 Problem Gastroesophageal reflux disease without esophagitis K21.9 Active 199833643 Problem Iron deficiency anemia, unspecified iron deficiency anemia type D50.9 Active 38110874 Problem Anxiety F41.9 Active 51008324 Problem Personality disorder F60.9 Active 70980320 Problem Anemia, unspecified type D64.9 Active 099750724 Problem Age-related osteoporosis without current pathological fracture M81.0 Active 19357195 Problem Factitious disorder imposed on self, recurrent episode F68.10 Active 23431786 Problem Back pain M54.9 Active 596139878 Problem History of CVA with residual deficit I69.30 Active 165882830 Problem Insomnia, unspecified type G47.00 Active 400585452 Problem Seizure disorder G40.909 Active 721138038 Problem Perennial allergic rhinitis, unspecified allergic rhinitis trigger J30.89 Active 255329033 ALLERGIES Substance Reaction Event Type Date Status Vibramycin Unknown Drug Allergy Dec, Active Tegretol Unknown Drug Allergy Dec, Active SulfADIAZINE Unknown Drug Allergy Dec, Active Penicillin V Potassium Unknown Drug Allergy Dec, Active Darvocet A500 Unknown Drug Allergy Dec, Active Codeine Phosphate Unknown Drug Allergy Dec, Active Aspirin Unknown Drug Allergy Dec, Active ENCOUNTERS Encounter Location Date Diagnosis [facility] [address] [facility] [id number] [address] Dec, [facility] [address] [facility] [id number] [address] Sep, [facility] [address] [id number] [id number] Sep, [facility] [address] [address] Aug, [facility] [address] [id number] [address] Aug, Back pain M54.9 [facility] [address] [address] Aug, Factitious disorder imposed on self, recurrent episode F68.10 ; Personality disorder F60.9 ; Insomnia, unspecified type G47.00 and Anxiety F41.9 [facility] [address] [id number] [address] Aug, Back pain M54.9 ; Iron deficiency anemia, unspecified iron deficiency anemia type D50.9 ; Chronic kidney disease, unspecified stage N18.9 and Breast cancer screening Z12.31 [facility] [address] [id number] [id number] Jul, Back pain M54.9 [facility] [id number] [id number] Jul, [facility] [address] [id number] [id number] Jul, [facility] [id number][place] [address] Jun, Back pain M54.9 [facility] [address] [id number][place] [id number] Jun, [facility] [id number] [id number] Jun, Back pain M54.9 [facility] [address] [facility] [id number], [place] [address] Jun, Back pain M54.9 ; Seizure disorder G40.909 and Age-related osteoporosis without current pathological fracture M81.0 [facility] [id number] [address] May, [facility] [id number] [place] [address] 85986- 2360 06 May, 2017 Back pain M54.9 [facility] [id number] [place] [address] 70156- 1044 Apr, Back pain M54.9 ; Encounter for immunization Z23 ; Gastroesophageal reflux disease without esophagitis K21.9 ; Age-related osteoporosis without current pathological fracture M81.0 and Chronic pruritus L29.9 [facility] [id number] [place] [address] 27920- 5199 16 Apr, 2017 History of CVA with residual deficit I69.30 [facility] [id number] [place] [address] 58151- 1866 Apr, Factitious disorder imposed on self, recurrent episode F68.10 and Personality disorder F60.9 [facility] [id number] [place] [address] [id number] Apr, Back pain M54.9 [facility] [id number] [place] [address] 82106- 1083 Mar, Factitious disorder imposed on self, recurrent episode F68.10 [facility] [address]00565100[place] [address] 4791 Mar, [facility] [id number] [place] [address] [id number] Mar, [facility] [id number] [place] [address] [id number] Mar, Back pain M54.9 [facility] [address]00565100[place] [address]- 88[address] 05 Mar, 2017 Back pain M54.9 ; Seizure disorder G40.909 and Age-related osteoporosis without current pathological fracture M81.0 [facility] [address]00565100[place] [address]- 8995 19 Feb, 2017 History of CVA with residual deficit I69.30 [facility] [id number] [place] [address] 41560- 0894 19 Feb, 2017 Factitious disorder imposed on self, recurrent episode F68.10 and Personality disorder F60.9 [facility] [address] [place] [address] 07686- 7576 15 Feb, 2017 Back pain M54.9 [facility] [id number] [place] [address] 23721- 1899 06 Feb, 2017 [address] [place] [id number] [place] [address] 47418- 4483 Jan, [facility] and [address] [id number] Jan, Age- related osteoporosis without current pathological fracture M81.0 and Allergic state, subsequent encounter T78.40XD [facility] [address]00565100[place] [address] Jan, Factitious disorder imposed on self, recurrent episode F68.10 and Personality disorder F60.9 [place] [address] [place] [address] 14269- 9631 Dec, Back pain M54.9 [facility] [address]00565100[place] [address] 8457 Dec, Personality disorder F60.9 and Factitious disorder imposed on self, recurrent episode F68.10 [facility] [id number] [address] Dec, Back pain M54.9 [facility] [id number] [place] [address] [id number] Dec, [facility] [address] [id number] [id number] Dec, [facility] [id number] [place] [address] 13000- 9708 Dec, [facility] [address]00565100[place] [address]- 9650 Nov, [facility] [address] [place] [address] 67035- 6188 Nov, Back pain M54.9 ; Anemia, unspecified type D64.9 and History of colon polyps Z86.010 [facility] [address] [place] [address] 22724- 7135 Nov, Back pain M54.9 [facility] [id number] [place] [address] [id number] October, Back pain M54.[address] [id number] October, Back pain M54.9 and Gastroesophageal reflux disease without esophagitis K21.9 [facility] [id number] [place] [address] [id number] Sep, [facility] [id number] [place] [address] 83230- 5887 Sep, [facility] [id number] [place] [address] 92927- 2898 Sep, [facility] [id number] [place] [address] 90805- 0721 Sep, [facility] [address] [place] [address] 84636- 7282 Sep, [facility] [id number] [place] [address] 60097- 6084 Sep, Seizure disorder G40.909 [facility] [id number] [place] [address] 17341- 0834 Sep, Back pain M54.9 [facility] [address] [place] [address] 92234- 6169 Sep, [facility] [id number] [place] [address] 17913- 9675 31 Aug, 2016 Back pain M54.9 [facility] [address]65100[place] [address]- 7840 Aug, Seizure disorder G40.909 [facility] [id number] [id number] 17 Aug, 2016 [facility] [address] [id number] [id number] 16 Aug, 2016 Back pain M54.9 [facility] [id number] [id number] 14 Aug, 2016 Back pain M54.9 [facility] [id number] [place] [address] [id number] 06 Aug, 2016 Back pain M54.9 [facility] and [address] [id number] Jul, Weakness R53.1 [facility] [address] [place] [address] 11648- 2882 Jul, Seizure disorder G40.909 [facility] [address] [place] [address] 00591- 5282 Jul, [facility] [address] [place] [address] 28347- 7148 Jul, Breast cancer screening Z12.39 [facility] [address] [place] [address] 04920- 5300 Jul, [facility] [address]00565100[place] [address]- 7346 Jul, [facility] [id number] [place] [address] 93881- 9903 17 Jul, 2016 [facility] [address]65100[place] [address]- 3703 13 Jul, 2016 Seizure disorder G40.909 ; Fatigue, unspecified type R53.83 ; Perennial allergic rhinitis, unspecified allergic rhinitis trigger J30.89 and Chronic kidney disease, unspecified stage N18.9 [facility] [address] [place] [address] 56744- 6927 Jul, [facility] [id number] [place] [address] 592155- 2417 Jul, Seizure disorder G40.909 [facility] [id number] [place] [address] 84784- 3164 Jun, [facility] [id number] [place] [address] 62113- 1161 Jun, [address] [id number] Jun, Perennial allergic rhinitis, unspecified allergic rhinitis trigger J30.89 [facility] [id number] [place] [address] [id number] Jun, [facility] [id number] [place] [address] 87145- 8913 Jun, Seizure disorder G40.909 [facility] [id number] [place] [address] [id number] Jun, [facility] [id number] [place] [address] [id number] May, [facility] [id number] [place] [address] 63933- 0317 May, [facility] [address] [place] [address] 58983- 7744 May, [facility] [address] [place] [address] 22004- 1799 May, [facility] [id number] [place] [address] 24923- 0752 May, History of CVA with residual deficit I69.30 [facility] [address]100[place] [address]- 9736 May, [facility] [address] [id number] [address]- 2373 May, [facility] [address] [place] [address] 12463- 2365 May, [facility] [address] [place] [address] 37721- 9632 May, Seizure disorder G40.909 [facility] [id number] [place] [address] 43505- 7871 May, [facility] [address] [place] [address] May, Back pain M54.9 and Seizure disorder G40.909 [facility] [address] [place] [address] 34346- 9882 Apr, [facility] [id number] [place] [address] 84195- 5688 Apr, Back pain M54.9 [facility] [address] [place] [address] 99906- 8599 Mar, [facility] [address] [place] [address] Mar, Insomnia, unspecified type G47.00 [facility] [address]65100[place] [address]- 7802 Mar, [facility] [address]65100[place] [address]- 7578 Feb, [facility] [address] [address]- 9408 Feb, [facility] [address] [place] [address] 89911- 1335 Feb, [facility] [address] [place] [address] 73239- 4243 Jan, [facility] [address]65[address] [address]- 8122 Jan, [facility] [address] [place] [address] Jan, Seizure disorder G40.909 and Back pain M54.9 [facility] [id number] [place] [address] 53590- 1534 Dec, [facility] [id number] [place] [address] 03302- 5560 Dec, [facility] [id number] [place] [address] 63014- 3499 Dec, [facility] [id number] [place] [address] 79848- 2669 Nov, [facility] [id number] [place] [address] 99411- 2788 Nov, [facility] [id number] [place] [address] 77533- 8535 Nov, Back pain M54.9 [facility] [id number] [place] [address] 40572- 8837 October, [facility] [id number] [place] [address] 18810- 2008 October, Back pain M54.9 [facility] [id number] [place] [address] 77954- 9020 October, Seizure disorder G40.909 and B12 deficiency E53.8 [facility] [address] [place] [address] 28243- 2525 Sep, History of CVA with residual deficit I69.30 [facility] [id number] [place] [address] 14736- 5267 Sep, [facility] [id number] [place] [address] 01533- 2880 Sep, [facility] [address] [place] [address] 63154- 2895 Sep, Back pain M54.9 [facility] [id number] [place] [address] 76542- 3746 Sep, Seizure disorder G40.909 [facility] [id number] [place] [address] 88630- 1120 25 Aug, 2015 Back pain M54.9 [facility] [id number] [place] [address] 01422- 1995 18 Aug, 2015 Seizure disorder G40.909 [facility] [id number] [place] [address] 31273- 8086 16 Aug, 2015 Back pain M54.9 [facility] [id number] [place] [address] 99722- 1409 14 Aug, 2015 Heart failure, unspecified I50.9 [facility] [id number] [place] [address] 17930- 8093 14 Aug, 2015 Medication monitoring encounter Z51.81 [facility] [id number] [place] [address] 79217- 1309 15 Jul, 2015 [facility] [id number] [place] [address] 74801- 0716 09 Jul, 2015 Seizure disorder G40.909 [facility] [id number] [place] [address] 61919- 0359 05 Jul, 2015 Back pain M54.9 [facility] [id number] [place] [address] 49019- 3899 Jun, [facility] [id number] [place] [address] 58279- 2741 Jun, [facility] [id number] [place] [address] 07960- 6287 Jun, Mental status change R41.82 ; History of CVA with residual deficit I69.30 ; Back pain M54.9 and Seizure disorder G40.909 [facility] [id number] [place] [address] 89200- 1286 Jun, [facility] [address] [id number] [place] [address]- 1179 May, [facility] [address] [id number] [place] 5116 Apr, [facility] [address] [facility] [id number][place]- 6647 Apr, Medication monitoring encounter Z51.81 [facility] [address] [id number]- 2760 Mar, Vomiting R11.10 [facility] [address] [facility] [id number]- 0086 Mar, [facility] [address] [facility] [id number]80[place]- 8886 Feb, [facility] [address]- 4403 Feb, UTI (urinary tract infection) 599.0 [facility] [address] [id number] [address]- 8818 Jan, [facility] [address] [id number] [place] [address]- 5439 Jan, [facility] [address] [id number]- 4726 Jan, [facility] [address] [id number], [place] [address]- 8210 Dec, [facility] [address] [id number], [place] [address]- 9569 Dec, [facility] [address] [facility] [id number] [place] [address]- 3916 Dec, [facility] [address] [facility] [id number], [place] [address]- 2546 Dec, [facility] [address] [facility] [id number], [place] [address]- 7287 Nov, UNKNOWN Nov, [facility] [place] [facility] [address] [facility] [id number] [place] [address]- 8207 October, [facility] [place] [facility] [address] [id number] [place] [address]- 1720 Sep, [facility] [place] [facility] [address] [facility] [id number] [place] [address]- 4679 Sep, [facility] [place] [facility] [address] [facility] [id number][place] [address]- 4068 Aug, [facility] [place] [facility] [address] [id number] [place] [address]- 5163 Aug, [facility] [place] [facility] [address] [facility] [id number] [place] [address]- 9672 Jul, [facility] [place] [facility] [address] [id number] [address]- 9332 Jul, [facility] [place] [facility] [address] [facility] [id number] [place] [address]- 0745 Jul, [facility] [place] [facility] [address] [facility] [id number] [place] [address]- 2550 Jul, [facility] [place] [facility] [address] [facility] [id number] [place] [address]- 7570 Jul, [facility] [place] [facility] [address] [facility] [id number] [place] [address]- 0499 Jun, [facility] [place] [facility] [address] [facility] [id number], [place] [address]- 0240 Jun, [facility] [place] [facility] [address] [facility] [id number] [place] [address]- 9577 Jun, [facility] [place] [facility] [address] [facility] [id number] [place] [address]- 6070 Jun, [facility] [place] [facility] [address] [facility] [id number] [place] [address]- 3328 Jun, [facility] [place] [facility] [address] [id number] [place] [address]- 8366 Jun, [facility] [place] [facility] [address] [id number] [place] [address]- 1941 Jun, [facility] [place] [facility] [address] [id number] [place] [address]- 8526 Jun, [facility] [place] [facility] [address] [id number] [place] [address]- 8776 Jun, [facility] [place] [facility] [address] [id number] [place] [address]- 8451 Jun, [facility] [place] [facility] [address] [id number] [place] [address] Jun, [facility] [place] [facility] [address] [id number] [place] [address] Jun, [facility] [place] [facility] [address] [id number] [place] [address] Jun, [facility] [place] [facility] [address] [id number] [place] [address] Jun, [facility] [place] [facility] [address] [id number] [place] [address] Jun, [facility] [place] [facility] [address] [id number] [place] [address] Jun, [facility] [place] [facility] [address] [id number] [place] [address] Jun, [facility] [place] [facility] [address] [id number] [place] [address] Jun, [facility] [place] [facility] [address] [id number] [place] [address] May, [facility] [place] [facility] [address] [id number] [place] [address] May, [facility] [place] [facility] [address] [id number] [place] [address] May, [facility] [place] [facility] [address] [id number] [place] [address] May, [facility] [place] [facility] [address] [id number] [place] [address] May, [facility] [place] [facility] [address] [id number] [place] [address] May, [facility] [place] [facility] [address] [id number] [place] [address] May, [facility] [place] [facility] [address] [id number] [place] [address]- [address] May, [facility] [place] [facility] [address] [id number] [place] [address] May, [place] [id number] [place] [id number] May, [facility] [place] [facility] [address] [id number] [place] [address] May, [facility] [place] [facility] [address] [id number] [place] [address] May, [facility] [place] [facility] [address] [id number] [place] [address] May, [facility] [address] [id number] [place] [address] Apr, [facility] [place] [facility] [address] [id number] [place] [address] Apr, [facility] [place] [facility] [address] [id number] [place] [address] Apr, [facility] [place] [facility] [address] [id number] [place] [address] Apr, [facility] [facility] [address] [id number] [place] [address] Apr, [facility] [place] [facility] [address] [id number], [place] [address] Apr, [facility] [place] [facility] [address] [id number] [place] [address] 6007 Mar, [facility] [place] [facility] [address] [id number] [place] [address] 5022 Mar, [facility] [place] [facility] [address] [id number] [place] [address]- 6685 Mar, [facility] [place] [facility] [address] [id number] [place] [address]- 4122 Mar, [facility] [place] [facility] [address] [id number] [place] [address]- 5656 Mar, [facility] [place] [facility] [address] [id number] [place] [address]- 0072 Mar, [facility] [place] [facility] [address] [id number] [place] [address]- 3478 Feb, [facility] [place] [facility] [address] [id number] [place] [address]- 5443 24 Feb, 2014 [facility] [place] [facility] [address] [id number] [place] [address]- 6244 23 Feb, 2014 [facility] [place] [facility] [address] [id number] [place] [address]- 0411 23 Feb, 2013 [facility] [place] [facility] [address] [id number], [place] [address]- 5725 19 Feb, 2013 [facility] [place] [facility] [address] [id number], [place] [address]- 8787 19 Feb, 2013 [facility] [facility] [address] [id number], [place] [address]- 4580 19 Feb, 2013 [facility] [address] [id number] [address]- 7[address] 19 Feb, 2013 [facility] [place] [address] [id number] [place] [address]- 1371 12 Feb, 2013 [facility] [place] [facility] [address] [id number] [place] [address]- 1219 Feb, [facility] [address] [place] [id number] Feb, [facility] [place] [facility] [address] [id number] [place] [address] 9603 Feb, [facility] [place] [facility] [address] [id number] [place] [address]- 6934 Jan, [facility] [place] [facility] [address] [id number] [place] [address]- 9885 Jan, [facility] [place] [facility] [address] [id number] [place] [address]- 4224 Dec, [facility] [place] [facility] [address] [id number] [place] [address]- 6670 Dec, [facility] [place] [facility] [address] [id number] [place] [address]- 4350 Dec, [facility] [place] [address] [id number] [place] [address]- 7328 Dec, [facility] [place] [facility] [address] [id number] [place] [address]- 5353 Dec, [facility] [place] [facility] [address] [id number] [place] [address]- 6988 Dec, [facility] [place] [facility] [address] [id number] [place] [address]- 1608 Dec, [facility] [place] [address] [id number] [place] [address]- 1749 Dec, [facility] [place] [facility] [address] [id number] [place] [address]- 6388 Dec, [facility] [place] [facility] [address] [id number] [place] [address]- 9539 Dec, [facility] [address] [id number] [place] [address]- 2307 Nov, [facility] [place] [facility] [address] [id number] [place] [address]- 0179 Nov, [facility] [address] [id number] [place] [address]- 4717 Nov, [facility] [address] [id number] [place] [address]- 9268 Nov, [facility] [place] [facility] [address] [id number] [place] [address]- 3572 Nov, [facility] [place] [facility] [address] [id number] [place] [address]- 2098 Nov, [facility] [address] [id number] [place] [address]- 8399 Nov, [facility] [place] [address] [id number] [place] [address]- 8409 Nov, [facility] [address] [id number] [place] [address]- 7706 Nov, [facility] [address] [id number] [place] [address]- 6629 Nov, [facility] [address] [id number] [place] [address]- 0345 Nov, [facility] [address] [id number] [place] [address]- 6830 Nov, [facility] [address] [id number] [place] [address]- 3680 Nov, [facility] [address] [id number] [place] [address]- 9852 Nov, [facility] [address] [id number] [place] [address]- 0494 October, [facility] [address] [id number] [place] [address]- 4706 October, [facility] [address] [id number] [place] [address]- 9720 October, [facility] [address] [id number] [place] [address]- 2782 October, [facility] [address] [id number] [place] [address]- 3185 October, [facility] [address] [id number] [place] [address]- 8804 October, [facility] [address] [id number] [place] [address]- 7911 October, [facility] [address] [id number] [place] [address]- 3461 October, [facility] [address] [id number] [place] [address]- 3932 October, [facility] [address] [id number] [place] [address]- 6596 October, [facility] [address] [id number] [place] [address]- 1914 Sep, [facility] [address] [id number] [place] [address]- 9583 Sep, [facility] [address] [id number] [place] [address]- 6938 Sep, [facility] [address] [id number] [place] [address]- 1644 Sep, [facility] [address] [id number] [place] [address]- 4076 Sep, [facility] [address] [id number] [place] [address]- 8798 Sep, [facility] [address] [id number] [place] [address]- 9290 Sep, [facility] [address] [id number] [place] [address]- 8718 Sep, [facility] [address] [id number] [place] [address]- 4806 Sep, [facility] [address] [id number] [place] [address]- 4842 Sep, [facility] [address] [id number] [place] [address]- 8626 Aug, [facility] [address] [id number] [place] [address]- 3210 Aug, [facility] [address] [id number] [place] [address]- 0415 Aug, [facility] [address] [id number] [place] [address]- 5419 Aug, [facility] [address] [id number] [place] [address]- 3147 Aug, [facility] [address] [id number] [place] [address]- 2991 Aug, [facility] [address] [id number] [place] [address]- 5163 Aug, [facility] [address] [id number] [place] [address]- 8749 Aug, [facility] [address] [id number] [place] [address]- 4256 Aug, [facility] [address] [id number] [place] [address]- 1275 Jul, [facility] [address] [id number] [place] [address]- 3254 Jul, [facility] [address] [id number] [place] [address]- 1266 Jul, [facility] [address] [id number] [place] [address]- 2736 Jul, [facility] [address] [id number] [place] [address]- 6403 Jul, [facility] [address] [id number] [place] [address]- 2269 Jul, [facility] [address] [id number] [place] [address]- 3316 Jul, [facility] [address] [facility] [id number] [place] [address]- 4886 Jul, [facility] [address] [id number] [place] [address]- 6890 Jul, 2013 [facility] [address] [id number] [place] [address]- 2025 Jul, [facility] [address] [id number] [place] [address]- 0026 Jul, [facility] [address] [facility] [id number] [place] [address]- 1039 Jul, [facility] [address] [facility] [id number] [place] [address]- 6189 Jul, [facility] [address] [facility] [id number] [place] [address]- 7648 Jul, [facility] [address] [facility] [id number] [place] [address]- 1774 Jul, [facility] [address] [facility] [id number] [place] [address]- 4099 Jul, [facility] [address] [facility] [id number] [place] [address]- 7646 Jun, [facility] [address] [id number] [place] [address]- 4140 Jun, [facility] [address] [facility] [id number] [place] [address]- 2970 Jun, [facility] [address] [facility] [id number] [place] [address]- 9284 Jun, [facility] [address] [id number] [place] [address]- 4756 Jun, [facility] [address] [id number] [place] [address]- 1636 Jun, [facility] [address] [id number] [place] [address]- 9987 May, [facility] [address] [id number] [place] [address]- 9723 May, [facility] [address] [id number] [place] [address]- 8452 May, [facility] [address] [id number] [place] [address]- 8983 May, [facility] [address] [id number] [place] [address]- 8580 Apr, [facility] [address] [id number] [place] [address]- 6553 Apr, [facility] [address] [id number] [place] [address]- 8230 Apr, [facility] [address] [id number] [place] [address]- 5336 Apr, [facility] [address] [id number] [place] [address]- 7059 Apr, [facility] [address] [id number] [place] [address]- 7293 Apr, [facility] [address] [id number] [place] [address]- 0156 Apr, [facility] [address] [id number] [place] [address]- 9252 Apr, [facility] [address] [id number] [place] [address]- 9858 18 Apr, 2013 [facility] [address] [id number] [place] [address]- 6420 18 Apr, 2013 [facility] [address] [id number] [place] [address]- 3245 Apr, [facility] [address] [id number] [place] [address]- 9947 Apr, [facility] [address] [id number] [place] [address]- 8360 28 Mar, 2013 [facility] [address] [id number] [place] [address]- 2832 28 Mar, 2013 [facility] [address] [id number] [place] [address]- 8525 16 Mar, 2013 [facility] [address] [id number] [place] [address]- 4058 16 Mar, 2013 [facility] [address] [id number] [place] [address]- 2568 15 Mar, 2013 [facility] [address] [id number] [place] [address]- 7871 15 Mar, 2013 [facility] [address] [id number] [place] [address]- 0936 27 Feb, 2013 [facility] [address] [id number] [place] [address]- 2544 25 Sep, 2012 [facility] [address] [id number] [place] [address]- 2542 25 Sep, 2012 [facility] [address] [id number] [place] [address]- 2549 23 Sep, 2012 [facility] [address] [id number] [place] [address] 2545 17 Sep, 2012 [facility] [address] [id number] [place] [address]- 2549 10 Sep, 2012 [facility] [address] [id number] [place] [address]- 2545 04 Sep, 2012 [facility] [address] [id number] [place] [address]- 1356 Jan, [facility] [address] [id number] [place] [address]- 2869 Jan, [facility] [address] [id number] [place] [address]- 5485 Jan, [facility] [address] [id number] [place] [address]- 9629 Jan, [facility] [facility] [address] [id number] [place] [address]- 8499 Jan, [facility] [address] [id number] [place] [address]- 5772 Jan, [facility] [address] [id number] [place] [address]- 9851 Jan, [facility] [address] [id number] [place] [address]- 5295 Dec, [facility] [address] [id number] [place] [address]- 1664 Dec, [facility] [address] [id number] [place] [address]- 1882 Dec, [facility] [address] [id number] [place] [address]- 0884 Dec, [facility] [address] [id number] [place] [address]- 6665 Dec, [facility] [address] [id number] [place] [address]- 9019 Dec, [facility] [address] [id number] [place] [address]- 7644 Nov, [facility] [facility] [address] [id number] [place] [address]- 3350 Nov, [facility] [place] [facility] [address] [id number] [place] [address]- 4358 Nov, [facility] [address] [id number] [place] [address]- 7443 Nov, [facility] [address] [id number] [place] [address]- 7451 October, [facility] [address] [id number] [place] [address]- 1303 October, [facility] [address] [id number] [place] [address]- 1642 October, [facility] [address] [id number] [place] [address]- 1450 October, [facility] [address] [id number] [place] [address]- 7360 Sep, [facility] [address] [id number] [place] [address]- 0987 Sep, [facility] [address] [id number] [place] [address]- 1848 Sep, [facility] [address] [id number] [place] [address]- 0102 Sep, [facility] [address] [id number] [place] [address]- 0475 Sep, [facility] [place] [facility] [address] [id number] [place] [address]- 5746 Sep, [facility] [place] [facility] [address] [id number] [address]- 5107 Sep, [facility] [place] [facility] [address] [id number] [place] [address]- 6481 Sep, [facility] [place] [facility] [address] [id number] [place] [address]- 0111 Aug, [facility] [place] [facility] [address] [id number] [place] [address]- 2123 Aug, [facility] [place] [facility] [address] [id number], [place] [address]- 8111 05 Aug, 2012 [facility] [address] [id number] [place] [address]- 0706 18 Jul, 2012 [facility] [place] [facility] [address] [id number] [place] [address]- 7676 08 Jul, 2012 [facility] [address] [id number] [place] [address]- 0856 07 Jul, 2012 [facility] [place] [facility] [address] [id number] [place] [address]- 8176 06 Jul, 2012 [facility] [address] [id number] [place] [address]- 0036 05 Jul, 2012 [facility] [address] [id number] [place] [address]- 6679 Jun, [facility] [address] [id number] [place] [address]- 9011 Jun, [facility] [address] [id number] [place] [address]- 8114 Jun, [facility] [address] [id number] [place] [address]- 3299 May, [facility] [address] [id number] [place] [address]- 5220 May, [facility] [address] [id number] [place] [address] 2546 May, [facility] [facility] [address] [id number] [place] [address]- 1736 May, [facility] [place] [facility] [address] [id number] [place] [address]- 8906 May, [facility] [place] [facility] [address] [id number] [place] [address]- 2546 May, [facility] [place] [facility] [address] [id number] [place] [address]- 1609 May, [facility] [place] [facility] [address] [id number] [place] [address]- 6600 Apr, [facility] [place] [facility] [address] [id number] [place] [address]- 8679 Apr, [facility] [place] [facility] [address] [id number] [place] [address]- 1956 Apr, [facility] [place] [facility] [address] [id number] [place] [address], [place] [address]- 0494 Apr, [facility] [place] [facility] [address] [id number] [place] [address]- 9403 Apr, [facility] [place] [facility] [address] [id number] [place] [address]- 7784 Apr, [facility] [place] [facility] [address] [id number] [place] [address]- 1479 Apr, [facility] [place] [facility] [address] [id number] [place] [address]- 9168 Apr, [facility] [place] [facility] [address] [id number] [place] [address]- 9735 Apr, [facility] [place] [facility] [address] [id number] [place] [address]- 3410 Apr, [facility] [place] [facility] [address] [id number] [place] [address]- 3322 Apr, [facility] [place] [facility] [address] [id number], [place] [address]- 6253 Mar, [facility] [place] [facility] [address] [id number] [place] [address]- 3803 Mar, [facility] [place] [facility] [address] [id number] [place] [address]- 7795 Mar, [facility] [place] [facility] [address] [id number], [place] [address]- 6961 Mar, [facility] [place] [facility] [address] [id number] [address] 23 Mar, 2012 [facility] [place] [facility] [address] [id number] [place] [address] 23 Mar, 2012 [facility] [place] [facility] [address] [id number] [place] [address] 19 Mar, 2012 [facility] [place] [facility] [address] [id number] [place] [address] 19 Mar, 2012 [facility] [place] [facility] [address] [id number] [place] [address] 16 Mar, 2012 [facility] [place] [facility] [address] [id number] [place] [address] 16 Mar, 2012 [facility] [place] [facility] [address] [id number] [place] [address] 04 Mar, 2012 [facility] [place] [facility] [address] [id number] [place] [address] 28 Sep, 2011 [facility] [place] [facility] [address] [id number] [place] [address] 27 Sep, 2011 [facility] [place] [facility] [address] [id number] [place] [address]- 1066 27 Sep, 2011 [facility] [place] [facility] [address] [id number] [place] [address]- 254 26 Sep, 2011 [facility] [place] [facility] [address] [id number], [place] [address] 24 Sep, 2011 [facility] [place] [facility] [address] [id number][place] [address]47 19 Sep, 2011 [facility] [place] [facility] [address] [id number] [place] [address] 2545 18 Sep, 2011 [facility] [place] [facility] [address] [id number], [place] [address] 18 Sep, 2011 [facility] [place] [facility] [address] [id number] [place] [address]- 2541 18 Sep, 2011 [facility] [place] [facility] [address] [id number] [place] [address] Jan, [facility] [place] [facility] [address] [id number] [place] [address] Jan, [facility] [place] [facility] [address] [id number] [place] [address] 67[address] Jan, [facility] [place] [facility] [address] [id number] [place] [address] Jan, [facility] [place] [facility] [address] [id number] [place] [address] 7784 Dec, [facility] [place] [facility] [address] [id number] [place] [address] Dec, [facility] [place] [facility] [address] [id number] [place] [address] Dec, [facility] [place] [facility] [address] [id number] [place] [address] Dec, [facility] [address] [id number] [place] [address] Dec, [facility] [place] [facility] [address] [id number] [place] [address] Dec, [facility] [place] [facility] [address] [id number] [place] [address] Dec, [facility] [place] [facility] [address] [id number] [place] [address] Dec, [facility] [place] [facility] [address] [id number] [place] [address] Dec, [facility] [place] [facility] [address] [id number] [place] [address]- 4[address] Dec, [facility] [place] [facility] [address] [id number] [place] [address]- [address] Dec, [facility] [place] [facility] [address] [id number] [place] [address] Dec, [facility] [place] [facility] [address] [id number] [place] [address]487 Dec, [facility] [place] [facility] [address] [id number] [place] [address]- 1811 Dec, [facility] [place] [facility] [address] [id number] [place] [address] 2933 Nov, [facility] [place] [facility] [address] [id number] [place] [address]- 5975 Nov, [facility] [place] [facility] [address] [id number] [place] [address]- 0199 Nov, [facility] [place] [facility] [address] [id number] [place] [address]698 Nov, [facility] [place] [facility] [address] [id number] [place] [address]- [address]696 Nov, [facility] [place] [facility] [address] [id number] [place] [address]- [address]367 Nov, [facility] [place] [facility] [address] [id number] [place] [address]- 17[address] October, [facility] [place] [facility] [address] [id number] [place] [address]- [address] October, [facility] [place] [facility] [address] [id number] [place] [address]- 2694 October, [facility] [place] [facility] [address] [id number] [place] [address]- 6444 October, [facility] [place] [facility] [address] [id number] [place] [address]- [address]882 19 Sep, 2011 [facility] [place] [facility] [address] [id number] [place] [address]- 3536 17 Sep, 2011 [facility] [place] [facility] [address] [id number] [place] [address]- 6290 13 Sep, 2011 [facility] [place] [facility] [address] [id number], [place] [address]77 09 Sep, 2011 [facility] [address] [id number] [place] [address] Sep, [facility] [address] [id number], [place] [address] Aug, [facility] [address] [id number] [place] [address]- [address] Aug, [facility] [address] [id number] [place] [address]- 4175 Aug, [facility] [address] [id number] [place] [address]- 9101 Aug, [facility] [address] [id number] [place] [address]- [address]655 Aug, [facility] [address] [id number], [place] [address]48 Aug, [facility] [address] [id number], [place] [address] Aug, [facility] [address] [id number] [place] [address]- 4625 16 Jul, 2011 [facility] [address] [id number], [place] [address]28 16 Jul, 2011 [facility] [address] [id number], [place] [address] 15 Jul, 2011 [facility] [address] [id number], [place] [address]- 117[address] 15 Jul, 2011 [facility] [address] [id number], [place] [address]16 24 Jun, 2011 [facility] [id number] [place] [id number] Jun, [facility] [address] [id number], [place] [address] Jun, [facility] [address] [id number] [place] [address]- 8383 10 Jun, 2011 [facility] [address] [id number] [place] [address]- [address]307 Jun, [facility] [address] [id number] [place] [address]- 0726 Jun, [facility] [address] [id number] [place] [address]- 6466 Jun, [facility] [address] [id number] [place] [address]- 0435 Jun, [facility] [address] [id number] [place] [id number] May, [facility] [address] [id number] [place] [address] May, [facility] [address] [id number] [place] [address] May, [facility] [address] [id number] [place] [address] May, [facility] [address] [id number] [place] [address] May, [facility] [address] [id number] [place] [address] May, [facility] [address] [id number] [place] [address] May, [facility] [address] [id number] [place] [address] Apr, [facility] [place] [facility] [address] [id number] [place] [address] Apr, [facility] [address] [id number] [place] [address] Apr, [facility] [address] [id number] [place] [address] Mar, [facility] [place] [facility] [address] [id number] [place] [address] 20 Mar, 2011 [facility] [place] [facility] [address] [id number] [place] [address] 14 Mar, 2011 [facility] [place] [facility] [address] [id number] [place] [address] 11 Mar, 2011 [facility] [place] [facility] [address] [id number] [place] [address] 10 Mar, 2011 [facility] [place] [facility] [address] [id number] [place] [address] 10 Mar, 2011 [facility] [place] [facility] [address] [id number] [place] [address] 10 Mar, 2011 [facility] [place] [facility] [address] [id number] [place] [address] Jan, [facility] [place] [facility] [address] [id number] [place] [address] 27 May, 2010 [facility] [place] [facility] [address] [id number] [place] [address] May, [facility] [place] [facility] [address] [id number] [place] [address] May, [facility] [place] [facility] [address] [id number] [place] [address]46 May, [facility] [place] [facility] [address] [id number] [place] [address] May, [facility] [place] [facility] [address] [id number] [place] [address] 06 May, 2010 [facility] [place] [facility] [address] [id number] [place] [address] 29 Apr, 2010 [facility] [place] [facility] [address] [id number] [place] [address] Apr, [facility] [place] [facility] [address] [id number] [address] Apr, [facility] [id number] [address] Apr, [facility] [id number] [address] Apr, [facility] [id number] [place] [address] Apr, [facility] [id number] [place] [address]- [address] Apr, [facility] [id number] [place] [address] Apr, [facility] [id number] [place] [address]- [address] Apr, [facility] [id number] [place] [address]- [address] Apr, [facility] [id number] [address] Mar, [facility] [id number] [place] [address] Mar, [facility] [id number] [address] Mar, [facility] [address] [address] Mar, [facility] [address] [address] Mar, [facility] [id number] [address] Dec, [facility] [id number] [address] Nov, IMMUNIZATIONS No Known Immunizations SOCIAL HISTORY Never Assessed REASON FOR VISIT maci Rendon MA PLAN OF CARE Activity Details Follow Up 4 Weeks Reason: VITAL SIGNS Height 62 in 2017-01-08 Weight 104 lbs 2017-01-08 Heart Rate 56 bpm 2017-01-08 Respiratory Rate 18 2017-01-08 BMI 19.02 kg/m2 2017-01-08 Blood pressure systolic 130 mmHg 2017-01-08 Blood pressure diastolic 88 mmHg 2017-01-08 MEDICATIONS Medication Instructions Dosage Frequency Start Date End Date Duration Status Nissa Allergy 60 MG Orally Once a day 1 tablet 24h Active Vitamin D (Ergocalciferol) 16422 UNIT Orally 2 times a day every 7 days 1 capsule Active Tussin Cough DM 100-10 MG/5ML Orally every 6 hrs as needed for cough 10 ml as needed Active Nitro-Dur 0.2 MG/HR Transdermal Once a day 1 patch to skin remove after 12 hours 24h Active Omeprazole Magnesium 20.6 (20 Base) MG Orally Once a day 1 capsule 24h Active Hydrocortisone 2.5 % Externally every 24 hours as needed for dry skin 1 application to affected area Active Sodium Bicarbonate 650 MG Orally Once a day 1 tablet 24h Active Vitamin B-12 1000 MCG/ML Injection every 14 days 1 ml Active Fioricet 50-300-40 MG Orally every 6 hrs 1 capsule as needed 6h Active Ibuprofen 200 mg Orally every 8 hours as needed for headache 2 tablets Active Fexofenadine HCl 180 MG Orally Once a day 1 tablet 24h Active Clorazepate Dipotassium 3.75 MG Orally Twice a day 1` tablets 12h 28 Active Tylenol 325 MG Orally every 6 hrs as needed for headache 2 tablets as needed Active Gabapentin 400 mg Orally at bedtime 1 tablet Active Folic Acid 1 MG Orally Once a day 1 tablet 24h Active Melatonin 3 MG Orally Once a day 1 tablet at bedtime as needed with food 24h Active Bisacodyl 10 MG Rectal Once a day 1 suppository as needed 24h Active Coumadin 1 MG Orally Once a day 1mg on Sun, , Sat, and Saturday, 1.5mg on Mond, wed, Fri 24h Active Lamotrigine 100 mg Orally 2 times a day 1 tablet 12h Active Metoprolol Tartrate 25 MG Orally Twice a day 1 tablet with food 12h Active Topamax 100 MG Orally Twice a day 1 tablet 12h Active Refresh Liquigel 1 % Ophthalmic 4 times a day 1 drop into affected eye as needed 6h Active Phenytoin 100 MG/4ML Orally at bedtime 150mg Active Saline Mist Meadow 0.65 % Nasally 1 spray in both nostrils every 4 hours 1 Meadow Active Restasis 0.05 % 1 DROP EACH EYE TWICE DAILY 30 Active Citalopram Hydrobromide 10 mg Orally Once a day 1 tablet 24h Active Lipitor 40 MG Orally Once a day 1 tablet 24h Active Promethazine HCl 12.5 MG Orally every 4 hrs 1 tablet as needed 4h Dec, Jan, 30 day(s) Active Zofran ODT 4 MG Orally every [...]
--- OUTSIDE RECORDS SUMMARY | 2018-02-04 13:30 | XMS REPORT ---
Author Author NAHOMY BETH [facility] Address [address] [place] [address] Care Team Providers Care Miller [employer] Name Role Phone NAHOMY BETH Unavailable PROBLEMS Type Condition ICD9-CM Code FMF41-FD Code Onset Dates Condition Status SNOMED Code Problem Chronic kidney disease, unspecified stage N18.9 Active 526510087 Problem History of colon polyps Z86.010 Active 805201718 Problem Gastroesophageal reflux disease without esophagitis K21.9 Active 060788051 Problem Iron deficiency anemia, unspecified iron deficiency anemia type D50.9 Active 12614738 Problem Anxiety F41.9 Active 73359487 Problem Personality disorder F60.9 Active 43080187 Problem Anemia, unspecified type D64.9 Active 021731415 Problem Age-related osteoporosis without current pathological fracture M81.0 Active 65888290 Problem Factitious disorder imposed on self, recurrent episode F68.10 Active 31202351 Problem Back pain M54.9 Active 504473772 Problem History of CVA with residual deficit I69.30 Active 778864420 Problem Insomnia, unspecified type G47.00 Active 311252554 Problem Seizure disorder G40.909 Active 497048207 Problem Perennial allergic rhinitis, unspecified allergic rhinitis trigger J30.89 Active 640734077 ALLERGIES No Information ENCOUNTERS Encounter Location Date Diagnosis [place] [id number] [address] Dec, [place] [address] [address] Sep, [place] [address], [place] [address] Sep, [place] [address] [address] Sep, [place] [id number] [address] Aug, [facility] [address], [place] [address] Aug, Back pain M54.9 [facility] [address], [place] [address] Aug, Factitious disorder imposed on self, recurrent episode F68.10 ; Personality disorder F60.9 ; Insomnia, unspecified type G47.00 and Anxiety F41.9 [facility] [address], [place] [address] Aug, Back pain M54.9 ; Iron deficiency anemia, unspecified iron deficiency anemia type D50.9 ; Chronic kidney disease, unspecified stage N18.9 and Breast cancer screening Z12.31 [facility] [id number] [id number] Jul, Back pain M54.9 [facility] [id number] [id number] Jul, [facility] [address] [place] [id number] [address] Jul, [facility] [id number] [address] Jun, Back pain M54.9 [facility] [id number] [address] Jun, [facility] [id number] [address] Jun, Back pain M54.9 [facility] [address] [id number] [address] 2540 Jun, Back pain M54.9 ; Seizure disorder G40.909 and Age-related osteoporosis without current pathological fracture M81.0 [facility] [id number] [address] May, [facility] [address], [place] [address]678 May, Back pain M54.9 [facility] [address] [place] [address] [id number] [place] [address] 40438- 9381 Apr, Back pain M54.9 ; Encounter for immunization Z23 ; Gastroesophageal reflux disease without esophagitis K21.9 ; Age-related osteoporosis without current pathological fracture M81.0 and Chronic pruritus L29.9 [facility] [address] [place] [id number] [place] [address] 39977- 9838 Apr, History of CVA with residual deficit I69.30 [facility] [address] [place] [address] [id number] [place] [address] 80337- 4249 Apr, Factitious disorder imposed on self, recurrent episode F68.10 and Personality disorder F60.9 [facility] [address] [place] [id number] [place] [address] [id number] Apr, Back pain M54.9 [facility] [id number] [place] [address] 00600- 1279 Mar, Factitious disorder imposed on self, recurrent episode F68.10 [facility] [id number] [place] [address] 21392- 0273 Mar, [facility] [address] [id number] [place] [address] [id number] Mar, [facility] [address] [place] [id number] [place] [address] [id number] Mar, Back pain M54.9 [facility] [address], [place] [address] 2914 05 Mar, 2017 Back pain M54.9 ; Seizure disorder G40.909 and Age-related osteoporosis without current pathological fracture M81.0 [facility] [address]100[place], [place] [address] Feb, History of CVA with residual deficit I69.30 [facility] [address] [place] [id number], [place] [address] 19 Feb, 2017 Factitious disorder imposed on self, recurrent episode F68.10 and Personality disorder F60.9 [facility] [address], [place] [address] 15 Feb, 2017 Back pain M54.9 [facility] [address], [place] [address] 06 Feb, 2017 [facility] [id number] [place] [address] 23475- 6131 Jan, [facility] [address] [id number] Jan, Age- related osteoporosis without current pathological fracture M81.0 and Allergic state, subsequent encounter T78.40XD [facility] [address]100[place], [place] [address] 1647 Jan, Factitious disorder imposed on self, recurrent episode F68.10 and Personality disorder F60.9 [facility] [address]100[place], [place] [address] 8666 Dec, Back pain M54.9 [facility] [address]100[place], [place] [address] 7648 Dec, Personality disorder F60.9 and Factitious disorder imposed on self, recurrent episode F68.10 [facility] [id number] [address] Dec, Back pain M54.9 [facility] [address] [place] [id number] [address] Dec, [facility] [address] [place] [address] [id number] [place] [address] [id number] Dec, [facility] [address]100[place] [address] Dec, [facility] [address]005[address]100[place], [place] [address] 7175 Nov, [facility] [address] [place] [id number] [place] [address] 89067- 8810 16 Nov, 2016 Back pain M54.9 ; Anemia, unspecified type D64.9 and History of colon polyps Z86.010 [facility] [address] [place] [address] [id number], [place] [address] 7420 Nov, Back pain M54.9 [facility] [address] [place] [address] [id number] [place] [address] [id number] October, Back pain M54.9 [facility] [address] [place] [id number] October, Back pain M54.9 and Gastroesophageal reflux disease without esophagitis K21.9 [facility] [address] [place] [address] [id number] [place] [address] [id number] Sep, [facility] [id number] [place] [address] 30984- 1072 Sep, [facility] [address] [id number] [place] [address] 25114- 9582 Sep, [facility] [address] [id number] [place] [address] 73872- 2334 Sep, [facility] [address] [id number] [place] [address] 56530- 1628 Sep, [facility] [address] [place] [id number] [place] [address] 93373- 3233 Sep, Seizure disorder G40.909 [facility] [address] [place] [id number] [place] [address] 91290- 5112 Sep, Back pain M54.9 [facility] [address] [id number] [place] [address] 27153- 0628 Sep, [facility] [address] [place] [id number] [place] [address] 52347- 2565 Aug, Back pain M54.9 [facility] [address] [id number] [place] [address] 47101- 6949 Aug, Seizure disorder G40.909 [facility] [id number] [id number] 17 Aug, 2016 [facility] [address] [place] [address] [id number] [address] 16 Aug, 2016 Back pain M54.9 [facility] [id number][place] [address] 14 Aug, 2016 Back pain M54.9 [facility] [address] [place] [id number] [place] [address] [id number] 06 Aug, 2016 Back pain M54.[address] [id number] Jul, Weakness R53.1 [facility] [address] [place] [address] 15314- 9500 Jul, Seizure disorder G40.909 [facility] [address] [place] [address] 78021- 9668 Jul, [facility] [address] [place] [address] 89992- 9975 Jul, Breast cancer screening Z12.39 [facility] [address] [place] [address] 29957- 5737 Jul, [facility] [address], [place] [address]- 0882 Jul, [facility] [address], [place] [address]- 2043 Jul, [facility] [address] [place] [address] 35803- 5744 13 Jul, 2016 Seizure disorder G40.909 ; Fatigue, unspecified type R53.83 ; Perennial allergic rhinitis, unspecified allergic rhinitis trigger J30.89 and Chronic kidney disease, unspecified stage N18.9 [facility] [address], [place] [address]- 7017 06 Jul, 2016 [place] [address], [place] [address]- 8610 Jul, Seizure disorder G40.909 [facility] [id number] [place] [address] 67847- 7862 Jun, [facility] [address] [place] [address] 09782- 4306 Jun, [facility] and [address] [id number] Jun, Perennial allergic rhinitis, unspecified allergic rhinitis trigger J30.89 [facility] [address] [place] [address] [id number] [place] [address] [id number] Jun, [facility] [address] [id number] [place] [address] 19966- 1765 Jun, Seizure disorder G40.909 [facility] [address] [place] [address] [id number] [place] [address] [id number] Jun, [facility] [address] [place] [address] [id number] [place] [address] [id number] May, [facility] [id number] [place] [address] 07247- 2228 May, [facility] [address] [place] [address] [id number] [place] [address] 96362- 4817 May, [facility] [id number] [place] [address] 21546- 3340 May, [facility] [address] [place] [id number] [place] [address] 02598- 8006 May, History of CVA with residual deficit I69.30 [facility] [address] [id number] [place] [address] 47646- 3099 May, [facility] [address] [id number] [place] [address] 97703- 2819 May, [facility] [address] [place] [address] 62281- 6734 May, [facility] [address] [facility] [id number] [address]- 5023 May, Seizure disorder G40.909 [facility] [address] [facility] [id number] [place] [address] 35190- 5098 May, [facility] [address] [place] [address] May, Back pain M54.9 and Seizure disorder G40.909 [facility] [address] [facility] [id number] [place] [address] 60529- 0697 Apr, [facility] [address] [facility] [id number] [place] [address] 87628- 3795 Apr, Back pain M54.9 [facility] [address] [place] [address] 86884- 9490 Mar, [facility] [address] [place] [address] Mar, Insomnia, unspecified type G47.00 [facility] [address] [place] [address] 93877- 7570 Mar, [facility] [id number] [place] [address] 96389- 4792 Feb, [facility] [id number] [place] [address] 52303- 7939 Feb, [facility] [address] [place] [address] 00096- 6220 Feb, [facility] [address] [place] [address] 88514- 2128 Jan, [facility] [address] [facility] [id number] [place] [address] 62883- 3997 Jan, [facility] [address] [place] [address] Jan, Seizure disorder G40.909 and Back pain M54.9 [facility] [address] [place] [id number], [place] [address]- 2158 Dec, [facility] [id number] [place] [address] 36086- 0080 Dec, [facility] [id number] [place] [address] 39447- 6737 Dec, [facility] [address] [id number] [place] [address] 94394- 5247 Nov, [facility] [id number] [place] [address] 35708- 7794 Nov, [facility] [id number] [place] [address] 00718- 0228 Nov, Back pain M54.9 [facility] [id number] [place] [address] 00966- 3671 October, [facility] [id number] [place] [address] 00956- 7292 October, Back pain M54.9 [facility] [id number] [place] [address] 83740- 6659 October, Seizure disorder G40.909 and B12 deficiency E53.8 [facility] [address] [id number] [place] [address] 73264- 0916 Sep, History of CVA with residual deficit I69.30 [facility] [id number] [place] [address] 39330- 2466 Sep, [facility] [address] [place] [address] 54142- 9445 Sep, [facility] [address] [id number] [place] [address] 31246- 8929 Sep, Back pain M54.9 [facility] [address] [place] [address] 51119- 2942 Sep, Seizure disorder G40.909 [facility] [address] [place] [address] [id number] [place] [address] 89631- 8575 25 Aug, 2015 Back pain M54.9 [facility] [address] [id number] [place] [address] 50274- 8987 18 Aug, 2015 Seizure disorder G40.909 [facility] [address] [id number] [place] [address] 45847- 9005 16 Aug, 2015 Back pain M54.9 [facility] [address] [id number] [place] [address] 86377- 2605 14 Aug, 2015 Heart failure, unspecified I50.9 [facility] [address] [id number] [place] [address] 67543- 7658 14 Aug, 2015 Medication monitoring encounter Z51.81 [facility] [address] [place] [id number] [place] [address] 80875- 4419 15 Jul, 2015 [facility] [address] [id number] [place] [address] 00415- 1712 09 Jul, 2015 Seizure disorder G40.909 [facility] [id number] [place] [address] 47105- 1612 05 Jul, 2015 Back pain M54.9 [facility] [id number] [place] [address] 77922- 0689 Jun, [facility] [id number] [place] [address] 04906- 1060 Jun, [facility] [address] [place] [id number] [place] [address] 24020- 7531 Jun, Mental status change R41.82 ; History of CVA with residual deficit I69.30 ; Back pain M54.9 and Seizure disorder G40.909 [facility] [id number] [place] [address] 83662- 7741 Jun, [facility] [address] [place] [address] 58742- 5211 May, [facility] [address] [place] [id number] [place] [address] [place] [address]- 9716 Apr, [facility] [address] [id number] [place] [address]- 1826 Apr, Medication monitoring encounter Z51.81 [facility] [address] [id number] [place] [address]- 7126 Mar, Vomiting R11.10 [facility] [address] [id number] [place] [address]- 7386 Mar, [facility] [address] [id number] [place] [address]- 9274 Feb, [facility] [address] [id number] [place] [address]- 4903 Feb, UTI (urinary tract infection) 599.0 [facility] [address] [id number] [place] [address]- 2596 Jan, [facility] [address] [id number] [address]- 0936 Jan, [facility] [address] [id number] [place] [address]- 7686 Jan, [facility] [address] [id number], [place] [address]- 0866 Dec, [facility] [address] [id number], [place] [address]- 2546 Dec, [facility] [address] [id number] [address]- 2546 Dec, [facility] [address] [id number] [place] [address]- 2546 Dec, [facility] [address] [id number] [address]- 2546 Nov, UNKNOWN Nov, [facility] [address] [id number] [address]- 2546 October, [facility] [address] [id number] [place] [address]- 8323 14 Sep, 2014 [facility] [place] [facility] [address] [id number] [place] [address]- 1013 Sep, [facility] [place] [facility] [address] [id number] [place] [address]- 4387 Aug, [facility] [place] [facility] [address] [id number] [place] [address]- 7231 Aug, [facility] [place] [facility] [address] [id number] [place] [address]- 1251 Jul, [facility] [place] [facility] [address] [id number] [place] [address]- 6911 Jul, [facility] [place] [facility] [address] [facility] [id number] [place] [address]- 5731 Jul, [facility] [place] [facility] [address] [id number] [place] [address]- 2597 Jul, [facility] [place] [facility] [address] [id number] [place] [address]- 7272 Jul, [facility] [place] [facility] [address] [facility] [id number] [place] [address]- 0018 Jun, [facility] [place] [facility] [address] [id number] [place] [address]- 0425 Jun, [facility] [place] [facility] [address] [id number] [place] [address]- 7397 Jun, [facility] [place] [facility] [address] [id number] [place] [address]- 0416 Jun, [facility] [place] [facility] [address] [id number] [place] [address]- 5088 Jun, [facility] [place] [facility] [address] [id number] [place] [address]- 1998 Jun, [facility] [place] [facility] [address] [id number] [place] [address]- 6077 Jun, [facility] [place] [facility] [address] [id number] [place] [address]- 0875 Jun, [facility] [place] [facility] [address] [id number] [place] [address]- 9057 Jun, [facility] [place] [facility] [address] [id number] [place] [address]- 0984 Jun, [facility] [place] [facility] [address] [id number] [place] [address]- 2559 Jun, [facility] [place] [facility] [address] [id number] [place] [address]- 0755 Jun, [facility] [place] [facility] [address] [id number] [place] [address]- 4593 Jun, [facility] [place] [facility] [address] [id number] [place] [address]- 8068 Jun, [facility] [place] [facility] [address] [id number] [address]- 4517 Jun, [facility] [place] [facility] [address] [id number] [place] [address]- 9802 Jun, [facility] [place] [facility] [address] [id number] [place] [address]- 2302 Jun, [facility] [place] [facility] [address] [id number], [place] [address]- 9589 Jun, [facility] [place] [facility] [address] [id number], [place] [address]- 9624 May, [facility] [place] [facility] [address] [id number] [place] [address] May, [facility] [place] [facility] [address] [id number] [place] [address] May, [facility] [place] [facility] [address] [id number] [place] [address] May, [facility] [place] [facility] [address] [id number] [place] [address] May, [facility] [place] [facility] [address] [id number] [place] [address] May, [facility] [place] [facility] [address] [id number] [place] [address] May, [facility] [place] [facility] [address] [id number] [place] [address] May, [facility] [place] [facility] [address] [id number] [place] [address] May, [facility] [address] [id number] May, [facility] [place] [facility] [address] [id number] [place] [address] May, [facility] [place] [facility] [address] [id number] [place] [address] May, [facility] [place] [facility] [address] [id number] [place] [address] May, [facility] [place] [facility] [address] [id number] [place] [address] Apr, [facility] [place] [facility] [address] [id number] [place] [address] Apr, [facility] [place] [facility] [address] [id number] [place] [address] Apr, [facility] [place] [facility] [address] [id number] [place] [address] Apr, [facility] [place] [facility] [address] [id number] [place] [address] Apr, [facility] [place] [facility] [address] [id number] [place] [address] Apr, [facility] [place] [facility] [address] [id number] [place] [address] Mar, [facility] [place] [facility] [address] [id number] [place] [address] Mar, [facility] [place] [facility] [address] [id number] [place] [address] Mar, [facility] [place] [facility] [address] [id number] [place] [address] Mar, [facility] [place] [facility] [address] [id number] [place] [address] Mar, [facility] [place] [facility] [address] [id number] [place] [address] Mar, [facility] [place] [facility] [address] [id number] [place] [address] 24 Feb, 2014 [facility] [place] [facility] [address] [id number] [place] [address] 24 Feb, 2014 [facility] [place] [facility] [address] [id number] [place] [address] Feb, 2013 [facility] [place] [facility] [address] [id number] [place] [address] 23 Feb, 2014 [facility] [place] [facility] [address] [id number] [place] [address] 19 Feb, [address] [facility] [place] [facility] [address] [id number] [place] [address] 19 Feb, 2014 [facility] [place] [facility] [address] [id number] [place] [address] 19 Feb, 2013 [facility] [place] [facility] [address] [id number], [place] [address] 19 Feb, 2013 [facility] [place] [facility] [address] [id number] [place] [address] 12 Feb, 2014 [facility] [facility] [address] [facility] [id number] [place] [address] 12 Feb[facility] 2014 [facility] [address] [id number] Feb, [facility] [place] [facility] [address] [id number] [place] [address] Feb, [facility] [place] [facility] [address] [id number] [place] [address] 8[address] Jan, [facility] [place] [facility] [address] [id number] [place] [address] 35[address] Jan, [facility] [place] [facility] [address] [id number] [place] [address] 3895 Dec, [facility] [place] [facility] [address] [id number] [place] [address] Dec, [facility] [place] [facility] [address] [id number] [place] [address] 1269 Dec, [facility] [place] [facility] [address] [id number] [place] [address]- 6412 Dec, [facility] [place] [facility] [address] [id number] [place] [address] 1882 Dec, [facility] [place] [facility] [address] [id number] [place] [address] 1755 Dec, [facility] [place] [facility] [address] [id number] [place] [address] 4710 Dec, [facility] [place] [facility] [address] [id number] [place] [address]- 6217 Dec, [facility] [place] [facility] [address] [id number] [place] [address]- 1010 Dec, [facility] [place] [facility] [address] [id number] [place] [address]- 7145 Dec, [facility] [place] [facility] [address] [id number] [place] [address]- 6246 Nov, [facility] [place] [facility] [address] [id number] [place] [address]- 7408 Nov, [facility] [place] [facility] [address] [id number] [place] [address]- 7349 Nov, [facility] [place] [facility] [address] [id number] [place] [address]- 3135 Nov, [facility] [place] [facility] [address] [id number] [place] [address]- 3491 Nov, [facility] [place] [facility] [address] [id number] [place] [address]- 0322 Nov, [facility] [place] [facility] [address] [id number] [place] [address]- 9788 Nov, [facility] [place] [facility] [address] [id number] [place] [address]- 9833 Nov, [facility] [place] [facility] [address] [id number] [place] [address]- 8693 Nov, [facility] [place] [facility] [address] [id number] [place] [address]- 4640 Nov, [facility] [place] [facility] [address] [id number] [place] [address]- 7262 Nov, [facility] [place] [facility] [address] [id number] [place] [address]- 9429 Nov, [facility] [place] [facility] [address] [id number] [place] [address]- 7162 Nov, [facility] [place] [facility] [address] [id number] [place] [address]- 9218 Nov, [facility] [place] [facility] [address] [id number] [place] [address]- 3936 October, [facility] [place] [facility] [address] [id number] [place] [address]- 9617 October, [facility] [place] [facility] [address] [id number] [place] [address]- 8579 October, [facility] [place] [facility] [address] [id number] [place] [address]- 0528 October, [facility] [place] [facility] [address] [id number] [place] [address]- 1687 October, [facility] [address] [id number] [place] [address]- 8241 October, [facility] [facility] [address] [id number] [place] [address]- 3886 October, [facility] [address] [id number] [place] [address]- 5744 October, [facility] [address] [id number] [place] [address]- 0352 October, [facility] [address] [id number] [place] [address]- 8445 October, [facility] [address] [id number] [place] [address]- 3021 Sep, [facility] [address] [id number] [place] [address] 6793 Sep, [facility] [address] [id number] [place] [address]- 9477 Sep, [facility] [address] [id number] [place] [address]- 0157 Sep, [facility] [address] [id number] [place] [address]- 6405 Sep, [facility] [address] [id number] [place] [address]- 0089 Sep, [facility] [address] [id number] [place] [address]- 2384 Sep, [facility] [address] [id number] [place] [address]- 1299 Sep, [facility] [address] [id number] [place] [address]- 3980 Sep, [facility] [address] [id number] [place] [address]- 7925 Sep, [facility] [place] [facility] [address] [id number] [place] [address]- 0384 Aug, [facility] [place] [facility] [address] [id number] [place] [address]- 4859 Aug, [facility] [place] [facility] [address] [id number] [place] [address]- 9340 Aug, [facility] [place] [facility] [address] [id number] [place] [address]- 5946 Aug, [facility] [place] [facility] [address] [id number] [place] [address]- 8884 Aug, [facility] [place] [facility] [address] [id number] [place] [address]- 8513 Aug, [facility] [place] [facility] [address] [id number] [place] [address]- 3244 Aug, [facility] [facility] [address] [id number] [place] [address]- 1073 Aug, [facility] [facility] [address] [id number] [place] [address]- 0686 Aug, [facility] [facility] [address] [id number] [place] [address]- 6244 Jul, [facility] [place] [facility] [address] [id number] [place] [address]- 2791 Jul, [facility] [facility] [address] [id number] [place] [address]- 7508 Jul, [facility] [facility] [address] [id number] [place] [address]- 8851 Jul, [facility] [address] [id number] [place] [address]- 5204 Jul, [facility] [place] [facility] [address] [id number] [place] [address]- 9792 Jul, [facility] [facility] [address] [id number] [place] [address]- 5046 Jul, 2013 [facility] [address] [id number] [place] [address]- 2236 Jul, 2013 [facility] [facility] [address] [id number] [place] [address]- 9476 Jul, 2013 [facility] [facility] [address] [id number] [place] [address]- 1316 Jul, 2013 [facility] [facility] [address] [id number] [place] [address]- 0762 Jul, [facility] [facility] [address] [id number] [place] [address]- 3453 Jul, [facility] [facility] [address] [id number] [place] [address]- 9905 Jul, [facility] [place] [facility] [address] [id number] [place] [address]- 2613 Jul, [facility] [place] [facility] [address] [id number] [place] [address]- 0135 Jul, [facility] [facility] [address] [facility] [id number] [place] [address]- 5735 Jul, [facility] [facility] [address] [facility] [id number] [place] [address]- 2531 Jun, [facility] [facility] [address] [id number] [place] [address]- 4328 Jun, [facility] [facility] [address] [id number] [place] [address]- 6758 Jun, [facility] [place] [facility] [address] [id number] [place] [address]- 5681 Jun, [facility] [place] [facility] [address] [id number] [place] [address]- 8343 Jun, [facility] [address] [id number] [address]- 4788 Jun, [facility] [address] [id number] [place] [address]- 9428 May, [facility] [facility] [address] [id number] [place] [address]- 4814 May, [facility] [address] [id number] [place] [address]- 9906 May, [facility] [place] [facility] [address] [id number] [place] [address]- 6497 May, [facility] [facility] [address] [id number] [place] [address]- 5882 Apr, [facility] [facility] [address] [id number] [place] [address]- 3613 Apr, [facility] [place] [facility] [address] [id number] [place] [address]- 0419 Apr, [facility] [place] [facility] [address] [id number] [place] [address]- 3200 Apr, [facility] [place] [facility] [address] [id number] [place] [address]- 0237 Apr, [facility] [place] [facility] [address] [id number] [place] [address]- 1058 Apr, [facility] [facility] [address] [id number], [place] [address]- 0335 Apr, [facility] [facility] [address] [id number] [address]- 8214 Apr, [facility] [address] [id number] [address]- 3358 Apr, [facility] [address] [id number] [address]- 0105 Apr, [facility] [address] [id number] [address]- 0317 Apr, [facility] [address] [id number] [place] [address]- 6348 12 Apr, 2013 [facility] [address] [id number] [place] [address]- 8846 28 Mar, 2013 [facility] [address] [id number] [place] [address]- 2808 28 Mar, 2013 [facility] [address] [id number] [place] [address]- 7486 16 Mar, 2013 [facility] [facility] [address] [id number] [place] [address]- 4731 16 Mar, 2013 [facility] [address] [id number] [place] 4373 15 Mar, 2013 [facility] [facility] [address] [id number] [place] [address]- 6673 15 Mar, 2013 [facility] [facility] [address] [id number] [place] [address]- 2552 27 Feb, 2012 [facility] [address] [id number] [place] [address]- 2541 25 Feb, 2012 [facility] [facility] [address] [id number] [place] [address]- 254 25 Feb, 2012 [facility] [address] [id number] [place] [address]- 6913 23 Feb, 2012 [facility] [place] [facility] [address] [id number] [place] [address] 2549 17 Feb, 2012 [facility] [place] [facility] [address] [id number] [place] [address]- 2545 10 Feb, 2012 [facility] [place] [facility] [address] [id number] [place] [address] 2547 04 Feb, 2013 [facility] [place] [facility] [address] [id number] [place] [address]- 2543 30 Jan, 2013 [facility] [place] [facility] [address] [id number] [place] [address]- 6948 Jan, [facility] [place] [facility] [address] [id number] [place] [address]- 4971 Jan, [facility] [place] [facility] [address] [id number] [place] [address]- 3117 Jan, [facility] [place] [facility] [address] [id number] [place] [address]- 9611 Jan, [facility] [place] [facility] [address] [id number] [place] [address]- 5717 Jan, [facility] [place] [facility] [address] [id number] [place] [address]- 3101 Jan, [facility] [place] [facility] [address] [id number] [place] [address]- 8225 Dec, [facility] [place] [facility] [address] [id number] [place] [address]- 6816 Dec, [facility] [place] [facility] [address] [id number] [place] [address]- 7116 Dec, [facility] [place] [facility] [address] [id number] [place] [address]- 5398 Dec, [facility] [place] [facility] [address] [id number] [place] [address]- 3863 Dec, [facility] [place] [facility] [address] [id number] [place] [address]- 6114 Dec, [facility] [place] [facility] [address] [id number] [place] [address]- 3053 Nov, [facility] [place] [facility] [address] [id number] [place] [address]- 4493 Nov, [facility] [place] [facility] [address] [id number] [place] [address]- 6565 Nov, [facility] [place] [facility] [address] [id number] [place] [address]- 1312 Nov, [facility] [place] [facility] [address] [id number] [place] [address]- 1509 October, [facility] [address] [id number] [place] [address]- 4490 October, [facility] [address] [id number] [place] [address]- 0979 October, [facility] [address] [id number] [place] [address]- 8833 October, [facility] [address] [id number] [place] [address]- 2562 Sep, [facility] [address] [id number] [place] [address]- 4863 Sep, [facility] [address] [id number] [place] [address]- 1372 Sep, [facility] [address] [id number] [place] [address]- 1536 Sep, [facility] [address] [id number] [place] [address]- 3002 Sep, [facility] [address] [id number] [place] [address]- 9464 Sep, [facility] [address] [id number] [place] [address]- 9116 Sep, [facility] [address] [id number] [place] [address]- 1022 Sep, [facility] [address] [id number] [address]- 6364 Aug, [facility] [address] [id number] [place] [address]- 1448 Aug, [facility] [address] [id number] [place] [address]- 5823 Aug, [facility] [address] [id number] [place] [address]- 7527 Jul, [facility] [address] [id number] [place] [address]- 8255 08 Jul, 2012 [facility] [address] [id number] [place] [address]- 8456 07 Jul, 2012 [facility] [place] [facility] [address] [id number] [place] [address]- 3506 06 Jul, 2012 [facility] [place] [facility] [address] [id number] [place] [address]- 6126 05 Jul, 2012 [facility] [address] [id number] [place] [address]- 6432 Jun, [facility] [address] [id number] [place] [address]- 9906 Jun, [facility] [address] [id number] [place] [address]- 6096 Jun, [facility] [address] [id number] [place] [address]- 5784 May, [facility] [place] [facility] [address] [id number] [place] [address]- 8652 May, [facility] [address] [id number] [place] [address]- 4278 May, [facility] [place] [facility] [address] [id number] [place] [address]- 7916 May, [facility] [place] [facility] [address] [id number] [place] [address]- 5464 May, [facility] [place] [facility] [address] [id number] [place] [address]- 2604 May, [facility] [place] [facility] [address] [id number] [place] [address]- 2896 May, [facility] [place] [facility] [address] [id number] [place] [address]- 0294 Apr, [facility] [place] [facility] [address] [id number], [place] [address]- 1905 Apr, [facility] [place] [facility] [address] [id number] [place] [address]- 9325 Apr, [facility] [place] [facility] [address] [id number] [address]- 1550 Apr, [facility] [place] [facility] [address] [id number] [place] [address]- 6675 Apr, [facility] [place] [facility] [address] [id number] [address]- 0386 Apr, [facility] [place] [facility] [address] [id number] [place] [address]- 9058 Apr, [facility] [place] [facility] [address] [id number] [place] [address]- 1662 Apr, [facility] [place] [facility] [address] [facility] [id number], [place] [address]- 5169 Apr, [facility] [place] [facility] [address] [id number] [place] [address]- 3580 Apr, [facility] [place] [facility] [address] [id number] [address]- 8443 Apr, [facility] [place] [facility] [address] [id number] [address]- 3412 Mar, [facility] [place] [facility] [address] [id number], [place] [address]- 9131 Mar, [facility] [place] [facility] [address] [id number], [place] [address]- 4630 Mar, [facility] [place] [facility] [address] [id number], [place] [address]- 3632 Mar, [facility] [place] [facility] [address] [id number] [address]- 0031 Mar, [facility] [place] [facility] [address] [id number] [address]- 7403 Mar, [facility] [place] [facility] [address] [id number] [place] [address]- 0064 19 Mar, 2012 [facility] [place] [facility] [address] [id number] [place] [address]- 2818 19 Mar, 2012 [facility] [place] [facility] [address] [id number] [place] [address]- 2546 16 Mar, 2011 [facility] [place] [facility] [address] [id number] [place] [address]- 2896 16 Mar, 2012 [facility] [place] [facility] [address] [id number] [place] [address]- 8981 04 Mar, 2012 [facility] [place] [facility] [address] [id number] [place] [address]- 5510 28 Sep, 2011 [facility] [place] [facility] [address] [id number] [place] [address]- 5810 27 Sep, 2011 [facility] [place] [facility] [address] [id number] [place] [address]- 0036 27 Sep, 2011 [facility] [place] [facility] [address] [id number] [place] [address]- 4412 26 Sep, 2011 [facility] [place] [facility] [address] [id number] [place] [address]- 8909 24 Feb, 2011 [facility] [place] [facility] [address] [id number] [place] [address] 19 Feb, 2011 [facility] [place] [facility] [address] [id number] [place] [address] 2545 18 Feb, 2011 [facility] [place] [facility] [address] [id number] [place] [address] 2543 18 Feb, 2011 [facility] [place] [facility] [address] [id number] [place] [address] 254 18 Feb, 2012 [facility] [place] [facility] [address] [id number] [place] [address] 30 Jan, 2012 [facility] [place] [facility] [address] [id number] [place] [address] Jan, [facility] [place] [facility] [address] [id number] [place] [address] Jan, [facility] [place] [facility] [address] [id number] [place] [address] Jan, [facility] [place] [facility] [address] [id number] [place] [address] Dec, [facility] [place] [facility] [address] [id number] [place] [address] Dec, [facility] [place] [facility] [address] [id number] [place] [address] Dec, [facility] [place] [facility] [address] [id number] [place] [address] Dec, [facility] [place] [facility] [address] [id number] [place] [address] 110[address] Dec, [facility] [place] [facility] [address] [id number] [place] [address] Dec, [facility] [place] [facility] [address] [id number] [place] [address] Dec, [facility] [place] [facility] [address] [id number] [place] [address] Dec, [facility] [place] [facility] [address] [id number] [place] [address] 118[address] Dec, [facility] [place] [facility] [address] [id number] [place] [address] Dec, [facility] [place] [facility] [address] [id number] [place] [address] Dec, [facility] [place] [facility] [address] [id number] [place] [address] Dec, [facility] [place] [facility] [address] [id number] [place] [address] Dec, [facility] [place] [facility] [address] [id number] [place] [address]- [address] 05 Dec, 2011 [facility] [place] [facility] [address] [id number] [place] [address]- 1468 26 Nov, 2011 [facility] [place] [facility] [address] [id number] [place] [address] 9416 14 Nov, 2011 [facility] [place] [facility] [address] [id number] [place] [address] 6966 Nov, [facility] [place] [facility] [address] [id number] [place] [address]- 379[address] 07 Nov, 2011 [facility] [place] [facility] [address] [id number] [place] [address]- 266[address] 07 Nov, 2011 [facility] [place] [facility] [address] [id number] [place] [address] 4317 Nov, [facility] [place] [facility] [address] [id number] [place] [address] 30 Oct, 2011 [facility] [place] [facility] [address] [id number] [place] [address] October, [facility] [place] [facility] [address] [id number] [place] [address] October, [facility] [place] [facility] [address] [id number] [place] [address] 350[address] October, [facility] [place] [facility] [address] [id number] [place] [address] 3548 19 Sep, 2011 [facility] [place] [facility] [address] [id number] [place] [address] 6816 17 Sep, 2011 [facility] [place] [facility] [address] [id number] [place] [address] 0863 13 Sep, 2011 [facility] [place] [facility] [address] [id number] [place] [address]- 6[address] 09 Sep, 2011 [facility] [place] [facility] [address] [id number] [place] [address] 8069 03 Sep, 2011 [facility] [place] [facility] [address] [id number] [place] [address] 74[address] 26 Aug, 2011 [facility] [address] [id number] [place] [address] 1606 26 Aug, 2011 [facility] [address] [id number] [place] [address]46 21 Aug, 2011 [facility] [address] [id number] [place] [address] 9686 20 Aug, 2011 [facility] [address] [id number] [place] [address] 254 13 Aug, 2011 [facility] [address] [id number] [place] [address] 7246 02 Aug, 2011 [facility] [address] [facility] [id number] [place] [address] 39[address] Aug, [facility] [address] [facility] [id number] [place] [address] 16 Jul, 2011 [facility] [address] [facility] [id number] [place] [address]- 7196 16 Jul, 2011 [facility] [address] [id number] [place] [address] 15 Jul, 2011 [facility] [address] [facility] [id number] [place] [address] 1844 15 Jul, 2011 [facility] [address] [facility] [id number], [place] [address] 24 Jun, 2011 [facility] [address] [place] [id number] Jun, [facility] [address] [id number] [place] [address] Jun, [facility] [address] [facility] [id number] [place] [address] 9586 Jun, [facility] [address] [facility] [id number] [place] [address] 3968 Jun, [facility] [address] [id number] [place] [address] 8859 Jun, [facility] [place] [facility] [address] [id number] [place] [address] 135[address] Jun, [facility] [place] [facility] [address] [id number] [place] [address] Jun, [facility] [place] [facility] [address] [id number] [place] [address] 7773 May, [facility] [place] [facility] [address] [id number] [place] [address]- 7853 May, [facility] [place] [facility] [address] [id number] [place] [address] May, [facility] [place] [facility] [address] [id number] [place] [address] May, [facility] [place] [facility] [address] [id number] [place] [address] May, [facility] [place] [facility] [address] [id number] [place] [address] May, [facility] [place] [facility] [address] [id number] [place] [address] May, [facility] [place] [facility] [address] [id number] [place] [address] Apr, [facility] [place] [facility] [address] [id number], [place] [address] Apr, [facility] [place] [facility] [address] [id number] [place] [address] Apr, [facility] [place] [facility] [address] [id number] [address] Mar, [facility] [place] [facility] [address] [id number] [place] [address] Mar, [facility] [place] [facility] [address] [id number] [place] [address] 14 Mar, 2011 [facility] [place] [facility] [address] [id number] [place] [address] 11 Mar, 2011 [facility] [place] [facility] [address] [id number] [place] [address] 0656 10 Mar, 2011 [facility] [place] [facility] [address] [id number] [place] [address] 0136 10 Mar, 2011 [facility] [place] [facility] [address] [id number] [place] [address] 9610 10 Mar, 2011 [facility] [place] [facility] [address] [id number] [place] [address] 0236 11 Jan, 2011 [facility] [place] [facility] [address] [id number] [place] [address] 27 May, 2010 [facility] [place] [facility] [address] [id number] [place] [address]456 21 May, 2010 [facility] [place] [facility] [address] [id number] [place] [address] 13 May, 2010 [facility] [place] [facility] [address] [id number] [place] [address] 13 May, 2010 [facility] [place] [facility] [address] [facility] [id number] [place] [address] May, [facility] [place] [facility] [address] [id number] [place] [address] 06 May, 2010 [facility] [place] [facility] [address] [id number] [place] [address] 2542 29 Apr, 2010 [facility] [place] [facility] [address] [id number] [place] [address]43 Apr, [facility] [place] [facility] [address] [id number] [place] [address]40 19 Apr, 2010 [facility] [place] [facility] [address] [facility] [id number] [place] [address]43 18 Apr, 2010 [facility] [place] [facility] [id number] [address] Apr, [facility] [id number] [address] Apr, [facility] [id number] [address] Apr, [facility] [id number] [place] [address] Apr, [facility] [id number] [place] [address]- 0[address] Apr, [facility] [id number] [place] [address]- 7198 Apr, [facility] [id number] [place] [address]- 6406 Mar, [facility] [id number] [place] [address]- [address] Mar, [facility] [id number] [place] [address]- 3779 Mar, [facility] [id number] [place] [address]- 5[address] Mar, [facility] [id number] [address] Mar, [facility] [id number] [address] Dec, [facility] [address] [id number] [address] Nov, IMMUNIZATIONS No Known Immunizations SOCIAL HISTORY [...] surgery and skin graft, cholecysectomy Hospitalization History [facility] 12/2016
--- OUTSIDE RECORDS SUMMARY | 2018-02-04 13:31 | XMS REPORT ---
Author Author NAHOMY BETH Organization [facility] [place] Address [address] [place] [address] Care Team Providers Care Wallpaper Printer Name Role Phone NAHOMY BETH Unavailable PROBLEMS Type Condition ICD9-CM Code XQS21-EQ Code Onset Dates Condition Status SNOMED Code Problem History of colon polyps Z86.010 Active 887892893 Problem Factitious disorder imposed on self, recurrent episode F68.10 Active 73590576 Problem Anemia, unspecified type D64.9 Active 433578660 Problem Allergic state, subsequent encounter T78.40XD Active 275405776 Problem Unspecified psychosis not due to a substance or known physiological condition F29 Active 41027131 Problem Age-related osteoporosis without current pathological fracture M81.0 Active 37871762 Problem Personality disorder F60.9 Active 89733510 Problem Iron deficiency anemia, unspecified iron deficiency anemia type D50.9 Active 35974973 Problem Anxiety F41.9 Active 04186188 Problem History of CVA with residual deficit I69.30 Active 620317104 Problem Insomnia, unspecified type G47.00 Active 328666236 Problem Perennial allergic rhinitis, unspecified allergic rhinitis trigger J30.89 Active 118918698 Problem Seizure disorder G40.909 Active 789606147 Problem Chronic kidney disease, unspecified stage N18.9 Active 208375843 Problem Back pain M54.9 Active 728160020 Problem Gastroesophageal reflux disease without esophagitis K21.9 Active 806169826 ALLERGIES No Information ENCOUNTERS Encounter Location Date Diagnosis [facility] [place] [id number], [place] [address] Jan, [facility] [place] [address], [place] [address] Dec, [facility] [place] [id number], [place] [address] Dec, [facility] [place] [address], [place] [address] Dec, [facility] [place] [id number] [place] [address] 50871- 7370 Nov, Unspecified psychosis not due to a substance or known physiological condition F29 ; Personality disorder F60.9 and Factitious disorder imposed on self, recurrent episode F68.10 [facility] [place] [id number] [place] [address] 08920- 4628 Nov, Back pain M54.9 [facility] [place] [id number] [place] [address] 72168- 4069 Nov, Unspecified psychosis not due to a substance or known physiological condition F29 ; Personality disorder F60.9 and Factitious disorder imposed on self, recurrent episode F68.10 [facility] [place] [id number] [place] [address] 12246- 8905 October, [facility] [place] [id number] [place] [address] 64153- 7493 October, [facility] [place] [id number] [place] [address] 23987- 8645 October, Unspecified psychosis not due to a substance or known physiological condition F29 ; Personality disorder F60.9 and Factitious disorder imposed on self, recurrent episode F68.10 [facility] [place] [address] [place] [address] 24141- 6045 October, Back pain M54.9 [facility] [place] [address] [place] [address] 93734- 2484 October, Seizure disorder G40.909 ; Back pain M54.9 and Allergic state, subsequent encounter T78.40XD [facility] [place] [address], [place] [address] 4[address] October, [facility] [place] [address] [place] [address] 32024- 5241 Sep, Back pain M54.9 [facility] [place] [address], [place] [address] 4[address] Sep, Unspecified psychosis not due to a substance or known physiological condition F29 ; Personality disorder F60.9 and Factitious disorder imposed on self, recurrent episode F68.10 [facility] [place] [address], [place] [address] 6128 Sep, [facility] [place] [id number] [place] [address] 86185- 8398 Sep, [facility] [place] [id number] [place] [address] 15055- 9765 Sep, [facility] [place] [id number] [place] [address] 78273- 4155 Sep, [facility] [place] [id number] [place] [address] 41608- 4716 Aug, [facility] [place] [id number] [place] [address] 30636- 9037 Aug, Back pain M54.9 [facility] [place] [id number] [place] [address] 87880- 8090 15 Aug, 2017 Factitious disorder imposed on self, recurrent episode F68.10 ; Personality disorder F60.9 ; Insomnia, unspecified type G47.00 and Anxiety F41.9 [facility] [place] [address] [place] [address] 39454- 1041 Aug, Back pain M54.9 ; Iron deficiency anemia, unspecified iron deficiency anemia type D50.9 ; Chronic kidney disease, unspecified stage N18.9 and Breast cancer screening Z12.31 [facility] [id number] [place] [address] [id number] Jul, Back pain M54.9 [facility] [id number] [place] [id number] Jul, [facility] [id number] [place] [address] [id number] Jul, [facility] [id number] [id number] Jun, Back pain M54.9 [facility] [id number] [id number] Jun, [facility] [id number] [id number] Jun, Back pain M54.9 [facility] [place] [address] [place] [address] [id number]- 3309 Jun, Back pain M54.9 ; Seizure disorder G40.909 and Age-related osteoporosis without current pathological fracture M81.0 [address] [id number] [id number] May, [place] [address] [place] [address] 01951- 5992 May, Back pain M54.9 [place] [id number] [place] [address] 10230- 9821 Apr, Back pain M54.9 ; Encounter for immunization Z23 ; Gastroesophageal reflux disease without esophagitis K21.9 ; Age-related osteoporosis without current pathological fracture M81.0 and Chronic pruritus L29.9 [place] [id number], [place] [address] 48[address] 16 Apr, 2017 History of CVA with residual deficit I69.30 [place] [id number] [place] [address] 37329- 6402 Apr, Factitious disorder imposed on self, recurrent episode F68.10 and Personality disorder F60.9 [place] [id number] [place] [address] [id number] 08 Apr, 2017 Back pain M54.9 [facility] [place] [id number] [address] 4611 Mar, Factitious disorder imposed on self, recurrent episode F68.10 [place] [address], [place] [address] 0014 Mar, [facility] [id number] [place] [address] [id number] Mar, [facility] [id number] [place] [address] [id number] Mar, Back pain M54.9 [facility] [place] [id number] [place] [address] 58298- 7090 05 Mar, 2017 Back pain M54.9 ; Seizure disorder G40.909 and Age-related osteoporosis without current pathological fracture M81.0 [facility] [place] [id number] [place] [address] 13140- 3591 Feb, History of CVA with residual deficit I69.30 [facility] [place] [id number] [place] [address] 12621- 6382 Feb, Factitious disorder imposed on self, recurrent episode F68.10 and Personality disorder F60.9 [facility] [place] [address] [place] [address] 79278- 8190 Feb, Back pain M54.9 [facility] [place] [address] [place] [address] 45320- 1458 Feb, [facility] [place] [address] [place] [address] 62164- 1795 Jan, [facility] [address] [place] [id number] Jan, Age- related osteoporosis without current pathological fracture M81.0 and Allergic state, subsequent encounter T78.40XD [facility] [place] [address] [place] [address] 29518- 9493 Jan, Factitious disorder imposed on self, recurrent episode F68.10 and Personality disorder F60.9 [facility] [place] [address], [place] [address]- 7950 Dec, Back pain M54.9 [facility] [place] [id number] [address]- 9416 Dec, Personality disorder F60.9 and Factitious disorder imposed on self, recurrent episode F68.10 [facility] [id number] [id number] Dec, Back pain M54.9 [facility] [id number] [id number] Dec, [facility] [id number] [place] [address] [id number] Dec, [facility] [place] [address], [place] [address]- 6789 Dec, [facility] [place] [id number] [place] [address] 79933- 3943 Nov, [facility] [place] [address], [place] [address]- 4308 Nov, Back pain M54.9 ; Anemia, unspecified type D64.9 and History of colon polyps Z86.010 [facility] [place] [address], [place] [address]- 8355 Nov, Back pain M54.9 [facility] [id number] [id number] October, Back pain M54.9 [facility] [address] [place] [id number] October, Back pain M54.9 and Gastroesophageal reflux disease without esophagitis K21.9 [facility] [id number] [id number] Sep, [facility] [place] [address], [place] [address]- 2646 Sep, [facility] [place] [address], [place] [address]- 1526 Sep, [facility] [place] [address], [place] [address]- 4120 Sep, [facility] [place] [address] [facility] [id number], [place] [address]- 4690 Sep, [facility] [place] [address] [facility] [id number], [place] [address]- 3467 Sep, Seizure disorder G40.909 [facility] [place] [id number], [place] [address]- 2362 Sep, Back pain M54.9 [facility] [place] [id number], [place] [address]- 5698 Sep, [facility] [place] [address] [facility] [id number], [place] [address]- 2609 Aug, Back pain M54.9 [facility] [place] [id number], [place] [address]- 2313 Aug, Seizure disorder G40.909 [facility] [id number] [id number] 17 Aug, 2016 [facility] [id number] [id number] 16 Aug, 2016 Back pain M54.9 [facility] [id number] [id number] 14 Aug, 2016 Back pain M54.9 [facility] [id number] [id number] 06 Aug, 2016 Back pain M54.9 [facility] [address] [place] [id number] Jul, Weakness R53.1 [facility] [place] [id number], [place] [address]- 2761 Jul, Seizure disorder G40.909 [facility] [place] [address], [place] [address]- 1762 Jul, [facility] [place] [id number], [place] [address]- 3290 Jul, Breast cancer screening Z12.39 [facility] [place] [address] [place] [address] 54341- 0415 Jul, [facility] [place] [id number] [place] [address] 98193- 4373 Jul, [facility] [place] [id number] [place] [address] 44706- 6688 Jul, [facility] [place] [id number] [place] [address] 12844- 5134 Jul, Seizure disorder G40.909 ; Fatigue, unspecified type R53.83 ; Perennial allergic rhinitis, unspecified allergic rhinitis trigger J30.89 and Chronic kidney disease, unspecified stage N18.9 [facility] [place] [id number] [place] [address] 94935- 8052 Jul, [place] [id number] [place] [address] 64427- 5137 Jul, Seizure disorder G40.909 [facility] [place] [id number] [place] [address] 19218- 6963 Jun, [facility] [place] [id number] [place] [address] 44280- 3069 Jun, [address] [id number] Jun, Perennial allergic rhinitis, unspecified allergic rhinitis trigger J30.89 [facility] [id number] [place] [address] [id number] Jun, [facility] [place] [address] [place] [address] 54081- 7148 Jun, Seizure disorder G40.909 [place] [id number] [place] [address] [id number] Jun, [facility] [id number] [place] [address] [id number] May, [facility] [place] [id number] [place] [address] 51164- 6431 May, [facility] [place] [address], [place] [address]- 4783 May, [facility] [place] [id number] [place] [address] 27826- 4534 May, [facility] [place] [address] [place] [address] 10831- 0658 May, History of CVA with residual deficit I69.30 [facility] [place] [id number] [place] [address] 55320- 8030 May, [facility] [place] [id number] [place] [address] 20074- 8874 May, [facility] [place] [id number] [place] [address] 74862- 9944 May, [facility] [place] [id number] [place] [address] 27870- 1684 May, Seizure disorder G40.909 [facility] [place] [address] [place] [address] 27337- 1014 May, [employer] [address] [place] [address] May, Back pain M54.9 and Seizure disorder G40.909 [facility] [place] [address] [place] [address] 32891- 1434 Apr, [facility] [place] [address] [place] [address] 37139- 2442 Apr, Back pain M54.9 [facility] [place] [address] [place] [address] 27677- 0547 Mar, [employer] [address] [place] [address] Mar, Insomnia, unspecified type G47.00 [facility] [place] [address] [place] [address] 99425- 1789 Mar, [facility] [place] [address] [facility] [id number], [place] [address]- 6509 Feb, [facility] [place] [id number] [place] [address] 02351- 2195 Feb, [facility] [place] [address] [facility] [id number], [place] [address]- 2158 Feb, [facility] [place] [address] [place] [address] 34292- 1087 Jan, [facility] [place] [address] [facility] [id number], [place] [address]- 2858 Jan, [facility] [address] [place] [address] Jan, Seizure disorder G40.909 and Back pain M54.9 [facility] [place] [address], [place] [address]- 4954 Dec, [facility] [place] [address] [place] [address] 35176- 4467 Dec, [facility] [place] [id number], [place] [address]- 2605 Dec, [facility] [place] [address], [place] [address]- 1738 Nov, [facility] [place] [address], [place] [address]- 7318 Nov, [facility] [place] [address], [place] [address]- 4806 Nov, Back pain M54.9 [facility] [place] [address] [facility] [id number], [place] [address]- 6714 October, [facility] [place] [address], [place] [address]- 1726 October, Back pain M54.9 [facility] [place] [id number], [place] [address]- 4964 October, Seizure disorder G40.909 and B12 deficiency E53.8 [facility] [place] [id number] [place] [address] 60605- 7262 29 Sep, 2015 History of CVA with residual deficit I69.30 [facility] [place] [id number] [place] [address] 40977- 9756 Sep, [facility] [place] [id number] [place] [address] 46375- 5490 Sep, [facility] [place] [id number] [place] [address] 87925- 6765 Sep, Back pain M54.9 [facility] [place] [address] 07221- 2797 Sep, Seizure disorder G40.909 [facility] [place] [id number] [place] [address] 64368- 0808 Aug, Back pain M54.9 [facility] [place] [id number] [place] [address] 93265- 8249 18 Aug, 2015 Seizure disorder G40.909 [facility] [place] [id number] [place] [address] [phone]- [phone] 16 Aug, 2015 Back pain M54.9 [facility] [place] [id number] [place] [address] [id number]- [phone] 14 Aug, 2015 Heart failure, unspecified I50.9 [facility] [place] [id number] [place] [address] 50144- [phone] 14 Aug, 2015 Medication monitoring encounter Z51.81 [facility] [place] [id number] [place] [address] [id number]- [phone] 15 Jul, 2015 [facility] [place] [id number] [place] [address] [id number]- [phone] 09 Jul, 2015 Seizure disorder G40.909 [facility] [place] [id number] [place] [address] [phone]- [phone] 05 Jul, 2015 Back pain M54.9 [facility] [place] [id number] [address] Jun, [facility] [place] [id number] [place] [address] [phone]- [phone] Jun, [facility] [place], [facility] [id number], [place] [address] Jun, Mental status change R41.82 ; History of CVA with residual deficit I69.30 ; Back pain M54.9 and Seizure disorder G40.909 [facility] [place], [facility] [id number] [address] Jun, [facility] [place] [id number] [place] [address] [phone] May, [facility] [place], [facility] [id number] [place] [address] [phone] Apr, [facility], [place], [facility] [address] [id number] [place] [address] 6[address]63- 7447 Apr, Medication monitoring encounter Z51.81 [facility] [place] [id number] [place] [address] 62383- 0964 Mar, Vomiting R11.10 [facility] [place] [id number] [address] Mar, [facility] [place] [id number] [address] Feb, [facility] [place] [id number] [address] Feb, UTI (urinary tract infection) 599.0 [facility] [place] [id number] [place] [address] 38015- 6476 Jan, [facility] [place] [id number], [place] [address] 25[address] Jan, [facility] [place] [id number] [place] [address] 152862- 8109 Jan, [facility] [place] [facility] [address] [id number] [place] [address]- 3674 Dec, [facility] [place] [facility] [address] [id number] [place] [address]- 4336 Dec, [facility] [place] [facility] [address] [id number] [place] [address]- 3869 Dec, [facility] [place] [facility] [address] [id number] [place] [address]- 8926 Dec, [facility] [place] [facility] [address] [id number] [place] [address]- 4445 Nov, UNKNOWN Nov, [facility] [place] [facility] [address] [id number] [place] [address]- 3438 October, [facility] [place] [facility] [address] [id number] [place] [address]- 7750 Sep, [facility] [place] [facility] [address] [id number] [place] [address]- 0873 Sep, [facility] [place] [facility] [address] [id number] [place] [address]- 3723 Aug, [facility] [place] [facility] [address] [id number] [place] [address]- 7783 Aug, [facility] [place] [facility] [address] [facility] [id number] [place] [address]- 3261 Jul, [facility] [place] [facility] [address] [id number] [place] [address]- 6509 Jul, [facility] [place] [facility] [address] [id number] [place] [address]- 8177 Jul, [facility] [place] [facility] [address] [id number] [place] [address]- 1584 Jul, [facility] [place] [facility] [address] [facility] [id number] [place] [address]- 9906 Jul, [facility] [place] [facility] [address] [id number] [place] [address]- 5832 Jun, [facility] [place] [facility] [address] [id number] [place] [address]- 0663 Jun, [facility] [place] [facility] [address] [id number] [place] [address]- 2803 Jun, [facility] [place] [facility] [address] [id number] [place] [address]- 3619 Jun, [facility] [place] [facility] [address] [id number] [place] [address]- 2632 Jun, [facility] [place] [facility] [address] [id number] [place] [address]- 9545 Jun, [facility] [place] [facility] [address] [id number] [place] [address]- 8942 Jun, [facility] [place] [facility] [address] [id number] [place] [address]- 3441 Jun, [facility] [place] [facility] [address] [id number] [place] [address]- 5471 Jun, [facility] [place] [facility] [address] [id number] [place] [address]- 4326 Jun, [facility] [place] [facility] [address] [id number] [place] [address]- 7086 Jun, [facility] [place] [facility] [address] [id number] [place] [address]- 3368 Jun, [facility] [place] [facility] [address] [id number] [place] [address]- 2261 Jun, [facility] [place] [facility] [address] [id number] [place] [address]- 2736 Jun, [facility] [place] [facility] [address] [id number] [place] [address]- 3136 Jun, [facility] [place] [facility] [address] [id number] [place] [address]- 7311 Jun, [facility] [address] [id number] [place] [address]- 6167 Jun, [facility] [address] [id number] [place] [address]- 3554 Jun, [facility] [address] [id number] [place] [address]- 3552 May, [facility] [place] [facility] [address] [id number] [place] [address]- 8550 May, [facility] [address] [id number] [place] [address]- 3265 May, [facility] [address] [id number] [place] [address]- 4910 May, [facility] [address] [id number] [place] [address]- 2669 May, [facility] [address] [id number] [place] [address]- 3904 May, [facility] [address] [id number] [place] [address]- 6363 May, [facility] [address] [id number] [place] [address]- 4640 May, [facility] [address] [id number] [place] [address]- 5728 May, [facility] [address] [place] [id number] May, [facility] [place] [facility] [address] [id number] [place] [address]- 4362 May, [facility] [place] [facility] [address] [id number] [place] [address]- 9639 May, [facility] [place] [facility] [address] [id number] [place] [address]- 6629 May, [facility] [place] [facility] [address] [id number] [place] [address]- 5008 Apr, [facility] [place] [facility] [address] [id number] [place] [address]- 4345 Apr, [facility] [place] [facility] [address] [id number] [place] [address]- 1016 Apr, [facility] [place] [facility] [address] [id number] [place] [address]- 0287 Apr, [facility] [place] [facility] [address] [id number] [place] [address]- 4537 Apr, [facility] [place] [facility] [address] [id number] [place] [address]- 9017 Apr, [facility] [place] [facility] [address] [id number] [place] [address]- 8062 Mar, [facility] [place] [facility] [address] [id number] [place] [address]- 0233 Mar, [facility] [place] [facility] [address] [id number] [place] [address]- 5799 Mar, [facility] [place] [facility] [address] [id number] [place] [address]- 7921 Mar, [facility] [place] [facility] [address] [id number] [place] [address]- 1020 Mar, [facility] [place] [facility] [address] [id number], [place] [address]- 8813 Mar, [facility] [place] [facility] [address] [id number], [place] [address]- 1361 Feb, [facility] [place] [facility] [address] [id number] [place] [address]- 2706 Feb, [facility] [place] [facility] [address] [id number] [place] [address]- 6979 Feb, [facility] [place] [facility] [address] [id number] [place] [address]- 5131 Feb, [facility] [place] [facility] [address] [id number] [place] [address]- 6130 Feb, [facility] [address] [id number] [place] [address]- 2553 Feb, [facility] [address] [id number] [place] [address]- 5340 Feb, [facility] [address] [id number] [place] [address]- 7745 Feb, [facility] [address] [id number] [place] [address]- 2582 Feb, [facility] [address] [id number] [place] [address]- 6656 Feb, [facility] [address] [id number] Feb, [facility] [address] [id number] [place] [address]- 6209 Feb, [facility] [address] [id number] [place] [address]- 0344 Jan, [facility] [address] [id number] [place] [address]- 8465 Jan, [facility] [address] [id number] [place] [address]- 7481 Dec, [facility] [address] [id number] [place] [address]- 8707 Dec, [facility] [place] [facility] [address] [id number] [place] [address]- 0662 Dec, [facility] [place] [facility] [address] [id number] [place] [address]- 7198 Dec, [facility] [place] [facility] [address] [id number] [place] [address]- 9834 Dec, [facility] [place] [facility] [address] [id number] [place] [address]- 3441 Dec, [facility] [place] [facility] [address] [id number] [place] [address]- 5041 Dec, 2013 [facility] [place] [facility] [address] [id number] [place] [address]- 5981 Dec, [facility] [place] [facility] [address] [id number] [place] [address]- 9648 Dec, [facility] [place] [facility] [address] [id number] [place] [address]- 2190 Dec, [facility] [place] [facility] [address] [id number] [place] [address]- 9330 Nov, [facility] [place] [facility] [address] [id number] [place] [address]- 3885 Nov, [facility] [place] [facility] [address] [id number] [place] [address]- 5790 Nov, [facility] [place] [facility] [address] [id number] [place] [address]- 7261 Nov, [facility] [place] [facility] [address] [id number] [place] [address]- 1280 Nov, [facility] [place] [facility] [address] [id number] [place] [address]- 6949 Nov, [facility] [place] [facility] [address] [id number] [place] [address]- 6616 Nov, [facility] [place] [facility] [address] [id number] [place] [address]- 5908 Nov, [facility] [place] [facility] [address] [id number] [place] [address]- 3852 Nov, [facility] [place] [facility] [address] [id number] [place] [address]- 3468 Nov, [facility] [place] [facility] [address] [id number] [place] [address]- 6522 Nov, [facility] [place] [facility] [address] [id number] [place] [address]- 7986 Nov, [facility] [place] [facility] [address] [id number] [place] [address]- 7784 Nov, [facility] [place] [facility] [address] [id number] [place] [address]- 5636 Nov, [facility] [place] [facility] [address] [id number] [place] [address]- 8348 October, [facility] [place] [facility] [address] [id number] [place] [address]- 6798 October, [facility] [place] [facility] [address] [id number] [place] [address]- 0813 October, [facility] [place] [facility] [address] [id number] [place] [address]- 6264 October, [facility] [place] [facility] [address] [id number] [place] [address]- 7434 October, [facility] [place] [facility] [address] [id number] [place] [address]- 8194 October, [facility] [place] [facility] [address] [id number] [place] [address]- 3315 October, [facility] [place] [facility] [address] [id number] [place] [address]- 0804 October, [facility] [place] [facility] [address] [id number] [place] [address]- 1417 October, [facility] [place] [facility] [address] [id number] [place] [address]- 6255 October, [facility] [place] [facility] [address] [id number] [place] [address]- 8809 Sep, [facility] [place] [facility] [address] [id number] [place] [address]- 6713 Sep, [facility] [place] [facility] [address] [id number] [place] [address]- 2911 Sep, [facility] [place] [facility] [address] [id number] [place] [address]- 9934 14 Sep, 2013 [facility] [address] [id number] [place] [address]- 5313 14 Sep, 2013 [facility] [place] [facility] [address] [id number] [place] [address]- 1586 14 Sep, 2013 [facility] [address] [id number] [place] [address]- 3778 Sep, [facility] [place] [facility] [address] [id number] [place] [address]- 4874 Sep, [facility] [place] [facility] [address] [id number] [place] [address]- 1914 Sep, [facility] [place] [facility] [address] [id number] [place] [address]- 5354 Sep, [facility] [place] [facility] [address] [id number] [place] [address]- 2515 Aug, [facility] [place] [facility] [address] [id number] [place] [address]- 6826 Aug, [facility] [place] [facility] [address] [id number] [place] [address]- 6881 Aug, [facility] [place] [facility] [address] [id number] [place] [address]- 2807 Aug, [facility] [place] [facility] [address] [id number] [place] [address]- 1576 Aug, [facility] [place] [facility] [address] [id number] [place] [address]- 0658 Aug, [facility] [place] [facility] [address] [id number] [place] [address]- 8352 05 Aug, 2013 [facility] [place] [facility] [address] [id number] [place] [address]- 5281 Aug, [facility] [place] [facility] [address] [id number] [place] [address]- 7313 Aug, [facility] [place] [facility] [address] [id number] [place] [address]- 3516 Jul, [facility] [place] [facility] [address] [id number] [place] [address]- 3876 Jul, [facility] [place] [facility] [address] [id number] [place] [address]- 3326 Jul, [facility] [place] [facility] [address] [id number] [place] [address]- 7926 Jul, [facility] [place] [facility] [address] [id number] [place] [address]- 9486 Jul, [facility] [place] [facility] [address] [id number] [place] [address]- 2716 Jul, [facility] [place] [facility] [address] [facility] [id number] [place] [address]- 5306 Jul, [facility] [place] [facility] [address] [id number] [place] [address]- 3221 Jul, [facility] [place] [facility] [address] [facility] [id number] [place] [address]- 5715 Jul, [facility] [place] [facility] [address] [facility] [id number] [place] [address]- 6687 Jul, [facility] [place] [facility] [address] [facility] [id number] [place] [address]- 4126 Jul, [facility] [place] [facility] [address] [facility] [id number] [place] [address]- 9092 Jul, [facility] [place] [facility] [address] [facility] [id number] [place] [address]- 7156 Jul, [facility] [place] [facility] [address] [id number] [place] [address]- 9806 Jul, [facility] [place] [facility] [address] [facility] [id number] [place] [address]- 0486 Jul, [facility] [place] [facility] [address] [id number] [place] [address]- 4346 Jul, [facility] [place] [facility] [address] [id number] [place] [address]- 6903 Jun, [facility] [place] [facility] [address] [id number] [place] [address]- 5873 Jun, [facility] [place] [facility] [address] [id number] [place] [address]- 6193 Jun, [facility] [place] [facility] [address] [id number] [place] [address]- 0108 Jun, [facility] [place] [facility] [address] [id number] [place] [address]- 6999 Jun, [facility] [place] [facility] [address] [id number] [place] [address]- 9210 Jun, [facility] [place] [facility] [address] [id number] [place] [address]- 5297 May, [facility] [place] [facility] [address] [id number] [place] [address]- 9690 May, [facility] [place] [facility] [address] [id number] [place] [address]- 2403 May, [facility] [place] [facility] [address] [id number] [place] [address]- 4009 May, [facility] [place] [facility] [address] [id number] [place] [address]- 8090 Apr, [facility] [place] [facility] [address] [id number] [place] [address]- 2035 Apr, [facility] [place] [facility] [address] [id number] [place] [address]- 6620 Apr, [facility] [place] [facility] [address] [id number] [place] [address]- 8889 Apr, [facility] [place] [facility] [address] [id number], [place] [address]- 2399 Apr, [facility] [place] [facility] [address] [id number] [place] [address]- 6183 Apr, [facility] [place] [facility] [address] [id number] [place] [address]- 9315 Apr, [facility] [place] [facility] [address] [id number] [place] [address]- 6122 Apr, [facility] [place] [facility] [address] [id number], [place] [address]- 4415 Apr, [facility] [place] [facility] [address] [id number] [place] [address]- 7605 Apr, [facility] [place] [facility] [address] [id number], [place] [address]- 6988 Apr, [facility] [place] [facility] [address] [id number], [place] [address]- 0297 Apr, [facility] [place] [facility] [address] [id number], [place] [address]- 4256 28 Mar, 2013 [facility] [place] [facility] [address] [id number], [place] [address]- 0093 28 Mar, 2013 [facility] [place] [facility] [address] [id number], [place] [address]- 2022 16 Mar, 2013 [facility] [place] [facility] [address] [id number], [place] [address]- 9227 16 Mar, 2013 [facility] [place] [facility] [address] [id number], [place] [address]- 0887 15 Mar, 2013 [facility] [place] [facility] [address] [id number], [place] [address]- 8830 15 Mar, 2013 [facility] [place] [facility] [address] [id number], [place] [address]- 3204 27 Feb, 2013 [facility] [place] [facility] [address] [id number], [place] [address]- 4558 25 Feb, 2013 [facility] [place] [facility] [address] [id number] [place] [address]- 3591 25 Feb, 2013 [facility] [address] [id number] [place] [address]- 7706 23 Feb, 2013 [facility] [address] [id number] [place] [address] 2546 17 Feb, 2013 [facility] [address] [id number] [place] [address]- 8161 10 Feb, 2013 [facility] [address] [id number] [place] [address] 2549 04 Feb, 2013 [facility] [address] [id number] [place] [address]- 3587 30 Jan, 2013 [facility] [address] [id number] [place] [address]- 9058 Jan, [facility] [address] [id number] [place] [address] Jan, [facility] [address] [id number] [place] [address] Jan, [facility] [address] [id number] [place] [address] Jan, [facility] [address] [id number] [place] [address] Jan, [facility] [place] [facility] [address] [id number] [place] [address] Jan, [facility] [address] [id number] [place] [address] Dec, [facility] [place] [facility] [address] [id number] [place] [address] Dec, [facility] [place] [facility] [address] [id number] [place] [address] Dec, [facility] [place] [facility] [address] [id number] [place] [address] Dec, [facility] [address] [id number] [place] [address] Dec, [facility] [place] [facility] [address] [id number] [place] [address] Dec, [facility] [place] [facility] [address] [id number] [place] [address] Nov, [facility] [place] [facility] [address] [id number] [place] [address] Nov, [facility] [address] [id number] [place] [address] Nov, [facility] [place] [facility] [address] [id number] [place] [address] Nov, [facility] [place] [facility] [address] [id number] [place] [address] October, [facility] [place] [facility] [address] [id number] [place] [address] October, [facility] [place] [facility] [address] [id number] [place] [address] October, [facility] [place] [facility] [address] [id number] [place] [address] October, [facility] [place] [facility] [address] [id number] [place] [address] Sep, [facility] [place] [facility] [address] [id number], [place] [address] Sep, [facility] [place] [facility] [address] [id number] [place] [address]67 16 Sep, 2012 [facility] [place] [facility] [address] [id number] [place] [address] Sep, [facility] [place] [facility] [address] [id number] [place] [address] Sep, [facility] [place] [facility] [address] [id number], [place] [address] 04 Sep, 2012 [facility] [address] [id number] [place] [address] 02 Sep, 2012 [facility] [place] [facility] [address] [id number] [place] [address] 02 Sep, 2012 [facility] [address] [id number] [place] [address] 13 Aug, 2012 [facility] [place] [facility] [address] [id number] [place] [address] 13 Aug, 2012 [facility] [address] [id number] [place] [address] 05 Aug, 2012 [facility] [address] [id number] [place] [address] 18 Jul, 2012 [facility] [address] [id number] [place] [address] 08 Jul, 2012 [facility] [place] [facility] [address] [id number] [place] [address] 07 Jul, 2012 [facility] [address] [facility] [id number] [place] [address] 06 Jul, 2012 [facility] [address] [facility] [id number] [place] [address] 05 Jul, 2012 [facility] [address] [facility] [id number] [place] [address] Jun, [facility] [place] [facility] [address] [id number] [place] [address] Jun, [facility] [place] [facility] [address] [id number] [place] [address] Jun, [facility] [place] [facility] [address] [facility] [id number] [place] [address] May, [facility] [address] [facility] [id number], [place] [address] May, [facility] [place] [facility] [address] [id number] [place] [address] May, [facility] [place] [facility] [address] [id number] [place] [address]- [address] May, [facility] [place] [facility] [address] [id number] [place] [address] May, [facility] [place] [facility] [address] [id number] [place] [address]- [address] May, [facility] [place] [facility] [address] [id number] [place] [address]- [address] May, [facility] [place] [facility] [address] [id number] [place] [address]- [address] Apr, [facility] [place] [facility] [address] [id number] [place] [address]- 280[address] Apr, [facility] [place] [facility] [address] [id number] [place] [address]- 38[address] Apr, [facility] [place] [facility] [address] [id number] [place] [address]- [address] Apr, [facility] [place] [facility] [address] [id number] [place] [address]- 6866 Apr, [facility] [place] [facility] [address] [id number] [place] [address]- 6[address] Apr, [facility] [place] [facility] [address] [id number] [place] [address]- 15[address] Apr, [facility] [place] [facility] [address] [id number] [place] [address]- [address] Apr, [facility] [place] [facility] [address] [id number] [place] [address]- [address] Apr, [facility] [place] [facility] [address] [id number] [place] [address]- 5208 Apr, [facility] [place] [facility] [address] [id number] [place] [address]- 2546 Apr, [facility] [place] [facility] [address] [id number] [place] [address]- 6229 Mar, [facility] [place] [facility] [address] [id number] [place] [address] Mar, [facility] [place] [facility] [address] [id number] [place] [address]- [address]794 Mar, [facility] [place] [facility] [address] [id number] [place] [address] Mar, [facility] [place] [facility] [address] [id number] [place] [address]- [address] Mar, [facility] [place] [facility] [address] [id number] [place] [address]- [address]16 Mar, [facility] [place] [facility] [address] [id number] [place] [address]- 0184 Mar, [facility] [place] [facility] [address] [id number] [place] [address]- 2031 Mar, [facility] [place] [facility] [address] [id number] [place] [address]- [address] Mar, [facility] [place] [facility] [address] [id number] [place] [address]- 1336 16 Mar, 2012 [facility] [place] [facility] [address] [id number], [place] [address]- [address] 04 Mar, 2012 [facility] [place] [facility] [address] [id number], [place] [address] 2012 [facility] [place] [facility] [address] [id number] [place] [address]- [address] 27 Feb, 2012 [facility] [place] [facility] [address] [id number] [place] [address] 27 Feb, 2012 [facility] [place] [facility] [address] [id number] [place] [address] 26 Feb, 2011 [facility] [place] [facility] [address] [id number] [place] [address] 24 Feb, 2012 [facility] [place] [facility] [address] [id number] [place] [address] 19 Feb, 2012 [facility] [place] [facility] [address] [id number] [place] [address] 2546 Feb, [facility] [address] [id number] [place] [address] Feb, [facility] [place] [facility] [address] [id number] [place] [address] Feb, [facility] [address] [id number] [place] [address] Jan, [facility] [place] [facility] [address] [id number] [place] [address] Jan, [facility] [place] [facility] [address] [id number] [place] [address] Jan, [facility] [address] [id number] [place] [address] Jan, [facility] [place] [facility] [address] [id number] [place] [address] 1002 Dec, [facility] [address] [id number] [place] [address] 5057 Dec, [facility] [place] [facility] [address] [id number] [place] [address]44 Dec, [facility] [place] [facility] [address] [id number] [place] [address] 9363 Dec, [facility] [place] [facility] [address] [id number] [place] [address]139 Dec, [facility] [place] [facility] [address] [id number] [place] [address] 390[address] Dec, [facility] [place] [facility] [address] [id number] [place] [address] 1321 Dec, [facility] [place] [facility] [address] [id number] [place] [address] 6847 Dec, [facility] [place] [facility] [address] [id number] [place] [address] 6370 Dec, [facility] [place] [facility] [address] [id number] [place] [address] 8903 Dec, [facility] [place] [facility] [address] [id number] [place] [address] 6302 Dec, [facility] [place] [facility] [address] [id number] [place] [address]- 2888 Dec, [facility] [place] [facility] [address] [id number] [place] [address] 3864 Dec, [facility] [place] [facility] [address] [id number] [place] [address]- 0748 Dec, [facility] [place] [facility] [address] [id number] [place] [address] 9926 Nov, [facility] [place] [facility] [address] [id number] [place] [address] 0681 Nov, [facility] [place] [facility] [address] [id number] [place] [address] 3198 Nov, [facility] [place] [facility] [address] [id number] [place] [address]- 9246 Nov, [facility] [place] [facility] [address] [id number], [place] [address] Nov, [facility] [place] [facility] [address] [id number] [place] [address] 2637 Nov, [facility] [place] [facility] [address] [id number] [place] [address] 4742 October, [facility] [place] [facility] [address] [id number] [place] [address] 6077 October, [facility] [place] [facility] [address] [id number], [place] [address] October, [facility] [address] [id number] [place] [address] 4649 October, [facility] [place] [facility] [address] [id number] [place] [address] 7717 Sep, [facility] [address] [facility] [id number] [place] [address] 8096 17 Sep, 2011 [facility] [place] [facility] [address] [id number] [place] [address] 9224 13 Sep, 2011 [facility] [address] [id number] [place] [address]- 0731 Sep, [facility] [address] [id number] [place] [address] 2438 Sep, [facility] [address] [id number] [place] [address]478 Aug, [facility] [address] [id number] [place] [address]- 7164 Aug, [facility] [address] [id number] [place] [address]- 6341 Aug, [facility] [address] [facility] [id number] [place] [address] 5945 Aug, [facility] [address] [id number] [place] [address]- 2436 Aug, [facility] [place] [facility] [address] [id number] [place] [address] 8218 Aug, [facility] [place] [facility] [address] [id number] [place] [address]- 8409 Aug, [facility] [place] [facility] [address] [facility] [id number] [place] [address]- 6651 Jul, [facility] [place] [facility] [address] [facility] [id number] [place] [address]328 Jul, [facility] [address] [id number] [place] [address] 2697 Jul, [facility] [address] [id number] [place] [address] 6417 Jul, [facility] [address] [facility] [id number] [place] [address]10 Jun, [address] [id number] Jun, [facility] [address] [id number] [place] [address]- 3056 Jun, [facility] [address] [id number] [place] [address]- 6151 Jun, [facility] [address] [facility] [id number] [place] [address] 6156 Jun, [facility] [address] [id number] [place] [address]- 3867 Jun, [facility] [address] [id number] [place] [address]- 8487 Jun, [facility] [address] [id number] [place] [address]- 9317 Jun, [facility] [address] [facility] [id number] [place] [address]- 8911 May, [facility] [address] [id number] [place] [address]- 7690 May, [facility] [address] [id number] [place] [address] 2544 May, [facility] [address] [id number] [place] [address]- 3744 May, [facility] [address] [id number] [place] [address]- 9302 May, [facility] [address] [id number] [place] [address]- 7273 May, [facility] [place] [facility] [address] [id number] [place] [address]- 7304 May, [facility] [place] [facility] [address] [id number] [place] [address]- 5865 29 Apr, 2011 [facility] [place] [facility] [address] [id number] [place] [address]- 2838 17 Apr, 2011 [facility] [place] [facility] [address] [id number] [place] [address]- 6321 Apr, [facility] [place] [facility] [address] [id number] [place] [address]- 1569 27 Mar, 2011 [facility] [place] [facility] [address] [id number] [place] [address]- 1590 20 Mar, 2011 [facility] [place] [facility] [address] [id number] [place] [address]- 7499 14 Mar, 2011 [facility] [place] [facility] [address] [id number] [place] [address]- 8678 11 Mar, 2011 [facility] [place] [facility] [address] [id number] [place] [address]- 3924 10 Mar, 2011 [facility] [place] [facility] [address] [id number], [place] [address]- 8231 Mar, [facility] [place] [facility] [address] [id number] [place] [address]- 4656 Mar, [facility] [place] [facility] [address] [id number], [place] [address]- 1085 Jan, [facility] [place] [facility] [address] [id number] [place] [address]- 9186 27 May, 2010 [facility] [place] [facility] [address] [id number] [place] [address]- 1826 May, [facility] [place] [facility] [address] [id number], [place] [address]- 2955 13 May, 2010 [facility] [place] [facility] [address] [id number], [place] [address]- 7431 13 May, 2010 [facility] [place] [facility] [address] [id number] [place] [address]- 2115 10 May, 2010 [facility] [place] [facility] [address] [facility] [id number], [place] [address]- 4074 06 May, 2010 [facility] [place] [facility] [address] [facility] [id number] [place] [address]- 4182 29 Apr, 2010 [facility] [place] [facility] [address] [id number], [place] [address]- 3362 26 Apr, 2010 [facility] [place] [facility] [address] [facility] [id number] [place] [address], [place] [address]- 6299 Apr, [facility] [place] [facility] [address] [facility] [id number] [place] [address]- 9177 18 Apr, 2010 [facility] [place] [facility] [id number] [place] [address]- 5570 15 Apr, 2010 [facility] [place] [facility] [address] [facility] [id number], [place] [address]- 1426 Apr, [facility] [place] [facility] [address] [id number], [place] [address] 5597 Apr, [facility] [place] [facility] [address] [id number], [place] [address]- 6531 Apr, [facility] [place] [facility] [address] [facility] [id number], [place] [address]- 5221 Apr, [facility] [place] [facility] [address] [facility] [id number], [place] [address]- 1758 Apr, [facility] [place] [facility] [address] [facility] [id number], [place] [address]- 4350 Mar, [facility] [place] [facility] [address] [facility] [id number], [place] [address]- 5256 Mar, [facility] [place] [facility] [address] [facility] [id number], [place] [address]- 1988 Mar, [facility] [place] [facility] [address] [facility] [id number] [place] [address]- 5196 Mar, [facility] [place] [address] [facility] [id number], [place] [address]- 0191 Mar, [facility] [place] [address] [facility] [id number], [place] [address]- 9201 Dec, [facility] [place] [address] [facility] [id number], [place] [address]- 1020 Nov, IMMUNIZATIONS No Known Immunizations SOCIAL HISTORY Never Assessed REASON FOR VISIT update med list PLAN OF CARE VITAL SIGNS MEDICATIONS Medication Instructions Dosage Frequency Start Date End Date Duration Status Clobetasol Propionate 0.05 % Externally Twice a day 1 application to affected area 12h Jul, 30 days Active RESULTS No Results [...] surgery and skin graft, cholecysectomy Hospitalization History [facility] 12/2016 Hospitalization History [facility] 08/2017
--- OUTSIDE RECORDS SUMMARY | 2018-02-04 13:32 | XMS REPORT ---
Author Author NAHOMY BETH [facility] Address [address] [place] [address] Care Team Providers Care Librarian Helper Name Role Phone NAHOMY BETH Unavailable PROBLEMS Type Condition ICD9-CM Code WZT18-VA Code Onset Dates Condition Status SNOMED Code Problem Gastroesophageal reflux disease without esophagitis K21.9 Active 728587587 Problem Anemia, unspecified type D64.9 Active 906863083 Problem History of colon polyps Z86.010 Active 422517621 Problem Unspecified psychosis not due to a substance or known physiological condition F29 Active 13179168 Problem Iron deficiency anemia, unspecified iron deficiency anemia type D50.9 Active 33115640 Problem Personality disorder F60.9 Active 42249433 Problem Factitious disorder imposed on self, recurrent episode F68.10 Active 49860093 Problem Anxiety F41.9 Active 78812530 Problem Age-related osteoporosis without current pathological fracture M81.0 Active 71826133 Problem Back pain M54.9 Active 642631282 Problem Insomnia, unspecified type G47.00 Active 621507511 Problem History of CVA with residual deficit I69.30 Active 761648104 Problem Perennial allergic rhinitis, unspecified allergic rhinitis trigger J30.89 Active 193594800 Problem Seizure disorder G40.909 Active 642276104 Problem Chronic kidney disease, unspecified stage N18.9 Active 190414320 ALLERGIES No Information ENCOUNTERS Encounter Location Date Diagnosis [facility] [id number], [place] [address] Dec, [facility] [address], [place] [address] 8240 Nov, [facility] [id number], [place] [address] 5218 Nov, [facility] [id number], [place] [address] 3284 October, [facility] [address] [place] [address] 67914- 6398 October, [facility] [id number] [place] [address] 57567314- 4239 Sep, Back pain M54.9 [facility] [id number] [place] [address] 04355- 8791 Sep, Unspecified psychosis not due to a substance or known physiological condition F29 ; Personality disorder F60.9 and Factitious disorder imposed on self, recurrent episode F68.10 [facility] [id number] [place] [address] 66914- 3918 Sep, [facility] [id number] [place] [address] 40897- 3487 Sep, [facility] [id number] [place] [address] 50300- 8464 Sep, [facility] [id number] [place] [address] 07113- 8001 Sep, [facility] [id number] [place] [address] 53073- 3670 Aug, [facility] [id number] [place] [address] 91367- 6152 Aug, Back pain M54.9 [facility] [id number] [place] [address] 28815- 6453 15 Aug, 2017 Factitious disorder imposed on self, recurrent episode F68.10 ; Personality disorder F60.9 ; Insomnia, unspecified type G47.00 and Anxiety F41.9 [facility] [address] [place] [address] 15101- 8044 08 Aug, 2017 Back pain M54.9 ; Iron deficiency anemia, unspecified iron deficiency anemia type D50.9 ; Chronic kidney disease, unspecified stage N18.9 and Breast cancer screening Z12.31 [facility] [id number] [id number] Jul, Back pain M54.9 [facility] [id number] [id number] Jul, [facility] [id number][place] [id number] Jul, [facility] [id number][place] [id number] Jun, Back pain M54.9 [facility] [id number] [address] Jun, [facility] [id number] [address] Jun, Back pain M54.9 [facility] [id number] 24[address] Jun, Back pain M54.9 ; Seizure disorder G40.909 and Age-related osteoporosis without current pathological fracture M81.0 [facility] [id number] [address] May, [facility] [address]005[address], [place] [address]- 5136 May, Back pain M54.9 [facility] [id number], [place] [address] 1798 Apr, Back pain M54.9 ; Encounter for immunization Z23 ; Gastroesophageal reflux disease without esophagitis K21.9 ; Age-related osteoporosis without current pathological fracture M81.0 and Chronic pruritus L29.9 [facility] [id number], [place] [address] 3133 Apr, History of CVA with residual deficit I69.30 [facility] [id number], [place] [address] 5071 16 Apr, 2017 Factitious disorder imposed on self, recurrent episode F68.10 and Personality disorder F60.9 [facility] [id number] [address] Apr, Back pain M54.9 [facility] [id number] [place] [address] 89246- 5484 Mar, Factitious disorder imposed on self, recurrent episode F68.10 [facility] [address] [place] [address] 91876- 6026 Mar, [facility] [id number] [place] [address] [id number] Mar, [facility] [id number] [place] [address] [id number] Mar, Back pain M54.9 [facility] [id number] [place] [address] 18780- 0461 Mar, Back pain M54.9 ; Seizure disorder G40.909 and Age-related osteoporosis without current pathological fracture M81.0 [facility] [id number] [place] [address] 58811- 7766 Feb, History of CVA with residual deficit I69.30 [facility] [id number] [place] [address] 66651- 8634 Feb, Factitious disorder imposed on self, recurrent episode F68.10 and Personality disorder F60.9 [facility] [address] [place] [address] 00928- 1311 15 Feb, 2017 Back pain M54.9 [facility] [id number] [place] [address] 99570- 9327 Feb, [facility] [address] [place] [address] 47498- 5109 Jan, [facility] [address] [place] [id number] Jan, Age- related osteoporosis without current pathological fracture M81.0 and Allergic state, subsequent encounter T78.40XD [facility] [id number] [place] [address] 01074- 3303 Jan, Factitious disorder imposed on self, recurrent episode F68.10 and Personality disorder F60.9 [facility] [address]00565[address], [place] [address]- 2994 Dec, Back pain M54.9 [facility] [address]00565[address], [place] [address]- 3054 Dec, Personality disorder F60.9 and Factitious disorder imposed on self, recurrent episode F68.10 [facility] [id number] [address] Dec, Back pain M54.9 [facility] [id number] [place] [address] [id number] Dec, [facility] [id number] [place] [address] [id number] Dec, [facility] [address] [place] [address] 07294- 8935 Dec, [facility] [address] [place] [address] 91470- 9793 Nov, [facility] [id number] [place] [address] 86839- 7876 Nov, Back pain M54.9 ; Anemia, unspecified type D64.9 and History of colon polyps Z86.010 [facility] [address], [place] [address]- 0566 Nov, Back pain M54.9 [facility] [id number][place] [id number] October, Back pain M54.9 [facility] [address] [place] [id number] October, Back pain M54.9 and Gastroesophageal reflux disease without esophagitis K21.9 [facility] [id number] [address] Sep, [facility] [address] [place] [address] 18129- 2439 Sep, [facility] [address] [facility] [id number], [place] [address]- 7647 Sep, [facility] [address] [facility] [id number], [place] [address]- 0399 Sep, [facility] [address] [facility] [id number], [place] [address]- 1336 Sep, [facility] [id number] [place] [address] 31499- 0789 Sep, Seizure disorder G40.909 [facility] [address] [facility] [id number], [place] [address]- 7658 Sep, Back pain M54.9 [facility] [id number], [place] [address]- 5997 Sep, [facility] [address] [place] [address] 73829- 2568 Aug, Back pain M54.9 [facility] [address] [id number], [place] [address]- 6716 Aug, Seizure disorder G40.909 [facility] [id number], [place] [id number] Aug, [facility] [id number], [place] [id number] 16 Aug, 2016 Back pain M54.9 [facility] [id number], [place] [id number] 14 Aug, 2016 Back pain M54.9 [facility] [id number][place] [id number] Aug, Back pain M54.9 [facility] [address] [place] [id number] Jul, Weakness R53.1 [facility] [id number], [place] [address]- 7212 Jul, Seizure disorder G40.909 [facility] [address]00565100[place], [place] [address]- 2742 Jul, [facility] [address] [place] [address] 74800- 1553 Jul, Breast cancer screening Z12.39 [facility] [address] [place] [address] 36318- 2546 Jul, [facility] [id number] [place] [address] 84990- 7377 Jul, [facility] [id number] [place] [address] 37993- 0806 Jul, [facility] [id number] [place] [address] 51979- 7922 Jul, Seizure disorder G40.909 ; Fatigue, unspecified type R53.83 ; Perennial allergic rhinitis, unspecified allergic rhinitis trigger J30.89 and Chronic kidney disease, unspecified stage N18.9 [facility] [address] [place] [address] 54656- 5688 Jul, [facility] [address] [place] [address] 84688- 0698 Jul, Seizure disorder G40.909 [facility] [address]00565[address], [place] [address]- 5974 Jun, [facility] [address] [place] [address] 25156- 3828 Jun, [facility] and [address] [id number] Jun, Perennial allergic rhinitis, unspecified allergic rhinitis trigger J30.89 [facility] [id number] [place] [address] [id number] Jun, [facility] [address] [place] [address] 95151- 1792 Jun, Seizure disorder G40.909 [place] [id number][place] [address] Jun, [facility] [id number] [place] [address] [id number] May, [facility] [address] [place] [address] 24892- 8293 May, [facility] [address] [place] [address] 52314- 3893 May, [facility] [id number] [place] [address] 64740- 6595 May, [facility] [id number] [place] [address] 94922- 4626 May, History of CVA with residual deficit I69.30 [facility] [id number] [place] [address] 34377- 3910 May, [facility] [id number] [place] [address] 25110- 1090 May, [facility] [address] [place] [address] 53922- 4163 May, [facility] [id number] [place] [address] 24822- 5314 May, Seizure disorder G40.909 [facility] [address] [place] [address] 69197- 5877 May, [facility] [place] [facility] [address] [facility] [place] [address] May, Back pain M54.9 and Seizure disorder G40.909 [facility] [address] [place] [address] 76623- 7722 Apr, [facility] [id number] [place] [address] 08261- 1553 Apr, Back pain M54.9 [facility] [address] [place] [address] 60129- 9338 Mar, [facility] [address] [place] [address] Mar, Insomnia, unspecified type G47.00 [facility] [address] [facility] [id number], [place] [address]- 5451 Mar, [facility] [address] [facility] [id number], [place] [address]- 8528 Feb, [facility] [address] [facility] [id number] [place] [address] 57733- 3664 Feb, [facility] [address] [facility] [id number] [place] [address] 54064- 7864 Feb, [facility] [id number] [place] [address] 16531- 2947 Jan, [facility] [id number] [place] [address] 61749- 1280 Jan, [facility] [address] [place] [address] Jan, Seizure disorder G40.909 and Back pain M54.9 [facility] [address] [place] [address] 00041- 0087 Dec, [facility] [address], [place] [address]- 7233 Dec, [facility] [address]005[address], [place] [address]- 1870 Dec, [facility] [address] [facility] [id number], [place] [address]- 2628 Nov, [facility] [address] [place] [address] 17677- 0268 Nov, [facility] [id number] [place] [address] 40867- 5218 Nov, Back pain M54.9 [facility] [address]00565[address], [place] [address]- 7834 October, [facility] [id number] [place] [address] 13889- 1174 October, Back pain M54.9 [facility] [id number] [place] [address] 94343- 6174 October, Seizure disorder G40.909 and B12 deficiency E53.8 [facility] [id number] [place] [address] 08186- 4456 Sep, History of CVA with residual deficit I69.30 [facility] [id number] [place] [address] 76802- 3355 Sep, [facility] [id number] [place] [address] 76986- 2576 Sep, [facility] [id number] [place] [address] 00008- 6611 Sep, Back pain M54.9 [facility] [id number] [place] [address] 65920- 1097 Sep, Seizure disorder G40.909 [facility] [id number] [place] [address] 68352- 3546 Aug, Back pain M54.9 [facility] [id number] [place] [address] 51628- 4155 Aug, Seizure disorder G40.909 [facility] [id number] [place] [address] 71851- 9845 16 Aug, 2015 Back pain M54.9 [facility] [id number] [place] [address] 33628- 0313 14 Aug, 2015 Heart failure, unspecified I50.9 [facility] [id number] [place] [address] 76317- 8645 14 Aug, 2015 Medication monitoring encounter Z51.81 [facility] [id number] [place] [address] 93936- 5248 15 Jul, 2015 [place]005[address], [place] [address]- 4298 Jul, Seizure disorder G40.909 [facility] [id number] [place] [address] 03733- 1772 Jul, Back pain M54.9 [facility] [address] [place] [address] 83597- 1976 Jun, [facility] [id number] [place] [address] 57711- 6742 Jun, [facility] [address] [place] [address] 70570- 8665 Jun, Mental status change R41.82 ; History of CVA with residual deficit I69.30 ; Back pain M54.9 and Seizure disorder G40.909 [facility] [address] [place] [address] 76447- 2086 Jun, [facility] [address] [place] [address] 79014- 1996 May, [facility] [address] [place] [address] 10480- 9493 Apr, [facility] [id number] [place] [address] 46333- 6170 Apr, Medication monitoring encounter Z51.81 [facility] [address] [place] [address] 89140- 3286 Mar, Vomiting R11.10 [facility] [address], [place] [address]- 3235 Mar, [facility] [id number] [place] [address] 703006- 6686 18 Feb, 2015 [facility] [address], [place] [address]- 2546 10 Feb, 2015 UTI (urinary tract infection) 599.0 [facility] [id number] [place] [address] [place] [address]- 3234 Jan, [facility] [place] [facility] [address] [id number] [place] [address]- 8426 Jan, [facility] [place] [facility] [address] [id number] [place] [address]- 2546 Jan, [facility] [place] [facility] [address] [id number] [place] [address]- 0136 Dec, [facility] [place] [facility] [address] [id number] [place] [address]- 2544 Dec, [facility] [place] [facility] [address] [id number] [place] [address]- 9013 Dec, [facility] [place] [facility] [address] [id number] [place] [address]- 2546 Dec, [facility] [place] [facility] [address] [id number] [place] [address]- 7736 Nov, UNKNOWN Nov, [facility] [place] [facility] [address] [id number] [place] [address]- 7556 October, [facility] [place] [facility] [address] [id number] [place] [address]- 8483 Sep, [facility] [place] [facility] [address] [id number] [place] [address]- 1568 Sep, [facility] [place] [facility] [address] [id number] [place] [address]- 8796 Aug, [facility] [place] [facility] [address] [id number] [place] [address]- 2546 Aug, [facility] [place] [facility] [address] [id number] [place] [address]- 5386 Jul, [facility] [place] [facility] [address] [id number] [place] [address]- 2546 Jul, [facility] [place] [facility] [address] [id number] [place] [address]- 5958 Jul, [facility] [place] [facility] [address] [id number] [place] [address]- 8911 Jul, [facility] [place] [facility] [address] [id number] [place] [address]- 2111 Jul, [facility] [place] [facility] [address] [id number] [place] [address]- 4098 Jun, [facility] [place] [facility] [address] [id number] [place] [address]- 2333 Jun, [facility] [place] [facility] [address] [id number] [place] [address]- 5089 Jun, [facility] [place] [facility] [address] [id number] [place] [address]- 9587 Jun, [facility] [place] [facility] [address] [id number] [place] [address]- 6594 Jun, [facility] [place] [facility] [address] [id number] [place] [address]- 12[address] Jun, [facility] [place] [facility] [address] [id number] [place] [address] Jun, [facility] [place] [facility] [address] [id number] [place] [address] Jun, [facility] [place] [facility] [address] [id number], [place] [address] Jun, [facility] [place] [facility] [address] [id number], [place] [address] Jun, [facility] [place] [facility] [address] [id number] [place] [address] Jun, [facility] [place] [facility] [address] [id number], [place] [address] Jun, [facility] [place] [facility] [address] [id number] [place] [address] Jun, [facility] [place] [facility] [address] [id number] [place] [address] Jun, [facility] [address] [id number] [place] [address] Jun, [facility] [address] [id number] [place] [address] Jun, [facility] [address] [id number] [place] [address] Jun, [facility] [address] [id number] [place] [address]- [address] Jun, [facility] [address] [id number] [place] [address] May, [facility] [address] [id number] [place] [address] May, [facility] [address] [id number] [place] [address] May, [facility] [address] [id number] [place] [address] May, [facility] [address] [id number] [place] [address] May, [facility] [address] [id number] [place] [address] May, [facility] [address] [id number] [place] [address] May, [facility] [address] [id number] [place] [address] May, [facility] [address] [id number] [place] [address] May, [facility] [address] [place] [id number] May, [facility] [address] [id number] [place] [address] May, [facility] [place] [facility] [address] [id number] [place] [address]- [address] May, [facility] [place] [facility] [address] [id number] [place] [address]- [address] May, [facility] [place] [facility] [address] [id number] [place] [address]- [address] Apr, [facility] [place] [facility] [address] [id number] [place] [address]- [address] Apr, [facility] [place] [facility] [address] [id number] [place] [address] Apr, [facility] [place] [facility] [address] [id number] [place] [address]- [address] Apr, [facility] [place] [facility] [address] [id number] [place] [address]- [address] Apr, [facility] [place] [facility] [address] [id number] [place] [address] Apr, [facility] [place] [facility] [address] [id number] [place] [address] Mar, [facility] [place] [facility] [address] [id number] [place] [address] Mar, [facility] [place] [facility] [address] [id number] [place] [address] 8540 Mar, [facility] [place] [facility] [address] [id number] [place] [address] 5788 Mar, [facility] [place] [facility] [address] [id number] [place] [address] 6[address] Mar, [facility] [place] [facility] [address] [id number] [place] [address] 8033 Mar, [facility] [place] [facility] [address] [id number] [place] [address] Feb, [facility] [place] [facility] [address] [id number] [id number] [address] Feb, [facility] [place] [facility] [address] [id number] [place] [address] 5934 Feb, [facility] [place] [facility] [address] [id number] [place] [address] 8175 Feb, [facility] [place] [facility] [address] [id number] [place] [address] 7614 Feb, [facility] [place] [facility] [address] [id number] [place] [address]- 17[address] Feb, [facility] [place] [facility] [address] [id number] [place] [address]- 2777 Feb, [facility] [place] [facility] [address] [id number] [place] [address]- 5539 Feb, [facility] [place] [facility] [address] [id number] [place] [address]- 0234 Feb, [facility] [place] [facility] [address] [id number] [place] [address]- 139[address] Feb, [facility] [address] [id number] Feb, [facility] [place] [facility] [address] [id number] [place] [address]- 5626 Feb, [facility] [place] [facility] [address] [id number] [place] [address]- 8159 Jan, [facility] [place] [facility] [address] [id number] [place] [address]- 7813 Jan, [facility] [place] [facility] [address] [id number] [place] [address]- 3991 Dec, [facility] [place] [facility] [address] [id number] [place] [address]- 6578 Dec, [facility] [place] [facility] [address] [id number] [place] [address]- 7908 Dec, [facility] [place] [facility] [address] [id number] [place] [address]- 5202 Dec, [facility] [place] [facility] [address] [id number] [place] [address]- 1335 Dec, [facility] [place] [facility] [address] [id number] [place] [address]- 3699 Dec, [facility] [place] [facility] [address] [id number] [place] [address]- 1591 Dec, [facility] [place] [facility] [address] [id number] [place] [address]- 8646 Dec, [facility] [place] [facility] [address] [id number] [place] [address]- 5941 Dec, [facility] [place] [facility] [address] [id number] [place] [address]- 0290 Dec, [facility] [place] [facility] [address] [id number] [place] [address]- 0423 Nov, [facility] [place] [facility] [address] [id number] [place] [address]- 7410 Nov, [facility] [place] [facility] [address] [id number] [place] [address]- 9441 Nov, [facility] [place] [facility] [address] [id number] [place] [address]- 4179 Nov, [facility] [place] [facility] [address] [id number] [place] [address]- 6536 Nov, [facility] [place] [facility] [address] [id number] [place] [address]- 9562 Nov, [facility] [place] [facility] [address] [id number] [place] [address]- 4572 Nov, [facility] [place] [facility] [address] [id number] [place] [address]- 4074 Nov, [facility] [place] [facility] [address] [id number] [place] [address]- 0181 Nov, [facility] [place] [facility] [address] [id number] [place] [address]- 2045 Nov, [facility] [address] [id number] [place] [address]- 7414 Nov, [facility] [place] [facility] [address] [id number] [place] [address]- 5615 Nov, [facility] [address] [id number] [place] [address]- 9164 Nov, [facility] [place] [facility] [address] [id number] [place] [address]- 2465 Nov, [facility] [address] [id number] [place] [address]- 5482 October, [facility] [address] [id number] [place] [address]- 5756 October, [facility] [place] [facility] [address] [id number] [place] [address]- 8273 October, [facility] [address] [id number] [place] [address]- 2430 October, [facility] [place] [facility] [address] [id number] [place] [address]- 3938 October, [facility] [address] [id number] [place] [address]- 5049 October, [facility] [place] [facility] [address] [id number] [place] [address]- 3100 October, [facility] [place] [facility] [address] [id number] [place] [address]- 5094 October, [facility] [place] [facility] [address] [id number] [place] [address]- 7770 October, [facility] [place] [facility] [address] [id number] [place] [address]- 9924 October, [facility] [place] [facility] [address] [id number] [place] [address]- 2582 Sep, [facility] [place] [facility] [address] [id number] [place] [address]- 0043 Sep, [facility] [place] [facility] [address] [id number] [place] [address]- 5825 Sep, [facility] [place] [facility] [address] [id number] [place] [address]- 5981 Sep, [facility] [place] [facility] [address] [id number] [place] [address]- 4715 Sep, [facility] [place] [facility] [address] [id number] [place] [address]- 9009 Sep, [facility] [place] [facility] [address] [id number] [place] [address]- 9939 Sep, [facility] [place] [facility] [address] [id number] [place] [address]- 4528 Sep, [facility] [place] [facility] [address] [id number] [place] [address]- 3961 Sep, [facility] [place] [facility] [address] [id number] [place] [address]- 3145 Sep, [facility] [place] [facility] [address] [id number] [place] [address]- 0022 Aug, [facility] [place] [facility] [address] [id number] [place] [address]- 5102 Aug, [facility] [place] [facility] [address] [id number] [place] [address]- 5316 Aug, [facility] [place] [facility] [address] [id number] [place] [address]- 9793 Aug, [facility] [place] [facility] [address] [id number] [place] [address]- 5765 Aug, [facility] [place] [facility] [address] [id number] [place] [address]- 6545 Aug, [facility] [place] [facility] [address] [id number] [place] [address]- 2503 Aug, [facility] [place] [facility] [address] [id number] [place] [address]- 9016 Aug, [facility] [place] [facility] [address] [id number] [place] [address]- 0516 Aug, [facility] [place] [facility] [address] [id number] [place] [address]- 4226 Jul, [facility] [place] [facility] [address] [id number] [place] [address]- 5373 Jul, [facility] [place] [facility] [address] [id number] [place] [address]- 8026 Jul, [facility] [place] [facility] [address] [id number] [place] [address]- 1486 Jul, [facility] [place] [facility] [address] [id number] [place] [address]- 2867 Jul, [facility] [place] [facility] [address] [id number] [place] [address]- 2140 Jul, [facility] [place] [facility] [address] [id number] [place] [address]- 8740 Jul, [facility] [place] [facility] [address] [id number] [place] [address]- 8819 Jul, [facility] [place] [facility] [address] [id number] [place] [address] 2546 Jul, [facility] [place] [facility] [address] [id number] [place] [address]- 2546 Jul, [facility] [place] [facility] [address] [id number] [place] [address]- 7206 Jul, [facility] [place] [facility] [address] [id number] [place] [address]- 2546 Jul, [facility] [place] [facility] [address] [id number] [place] [address]- 7017 Jul, [facility] [place] [facility] [address] [id number] [place] [address]- 8268 Jul, [facility] [place] [facility] [address] [id number] [place] [address]- 3060 Jul, [facility] [place] [facility] [address] [id number] [place] [address]- 8446 Jul, [facility] [place] [facility] [address] [id number] [place] [address]- 8707 Jun, [facility] [place] [facility] [address] [id number] [place] [address]- 2948 Jun, [facility] [place] [facility] [address] [id number] [place] [address]- 6335 Jun, [facility] [place] [facility] [address] [id number] [place] [address]- 2123 Jun, [facility] [place] [facility] [address] [id number] [place] [address]- 8776 Jun, [facility] [place] [facility] [address] [id number] [place] [address]- 3133 Jun, [facility] [place] [facility] [address] [id number] [place] [address]- 7664 May, [facility] [place] [facility] [address] [id number] [place] [address]- 5793 May, [facility] [place] [facility] [address] [id number] [place] [address]- 0667 May, [facility] [place] [facility] [address] [id number] [place] [address]- 6492 May, [facility] [place] [facility] [address] [id number] [place] [address]- 9051 Apr, [facility] [place] [facility] [address] [id number] [place] [address]- 4133 Apr, [facility] [place] [facility] [address] [id number] [place] [address]- 5923 Apr, [facility] [address] [id number] [place] [address]- 4913 Apr, [facility] [place] [facility] [address] [id number] [place] [address]- 0541 Apr, [facility] [address] [id number] [place] [address]- 0682 Apr, [facility] [place] [facility] [address] [id number] [place] [address]- 9453 Apr, [facility] [address] [id number] [place] [address]- 7561 Apr, [facility] [address] [id number] [place] [address]- 4820 Apr, [facility] [place] [facility] [address] [id number] [place] [address]- 6482 Apr, [facility] [address] [id number] [place] [address]- 0453 Apr, [facility] [place] [facility] [address] [id number] [place] [address]- 8075 Apr, [facility] [address] [id number] [place] [address]- 4537 Mar, [facility] [place] [facility] [address] [id number] [place] [address]- 3581 28 Mar, 2013 [facility] [place] [facility] [address] [id number], [place] [address] 3[address] 16 Mar, 2013 [facility] [place] [facility] [address] [id number] [place] [address]- 8560 16 Mar, 2013 [facility] [place] [facility] [address] [id number] [place] [address]- 2076 15 Mar, 2013 [facility] [place] [facility] [address] [id number] [place] [address]- 7208 15 Mar, 2013 [facility] [place] [facility] [address] [id number] [place] [address]- 0785 27 Feb, 2012 [facility] [place] [facility] [address] [id number] [place] [address]- 7946 25 Feb, 2012 [facility] [place] [facility] [address] [id number] [place] [address]- 0606 25 Feb, 2012 [facility] [place] [facility] [address] [id number] [place] [address]- 1466 23 Feb, 2012 [facility] [place] [facility] [address] [id number] [place] [address]- 0830 17 Feb, 2012 [facility] [place] [facility] [address] [id number] [place] [address]- 3487 10 Feb, 2013 [facility] [place] [facility] [address] [id number] [place] [address]- 3254 04 Feb, 2013 [facility] [place] [facility] [address] [id number] [place] [address]- 3944 30 Jan, 2013 [facility] [place] [facility] [address] [id number] [place] [address]- 5254 Jan, [facility] [place] [facility] [address] [id number] [place] [address]- 7918 Jan, [facility] [place] [facility] [address] [id number] [place] [address]- 3603 Jan, [facility] [place] [facility] [address] [id number], [place] [address]- 7920 Jan, [facility] [place] [facility] [address] [id number] [place] [address]- 4315 Jan, [facility] [place] [facility] [address] [id number] [place] [address]- 7193 Jan, [facility] [place] [facility] [address] [id number] [place] [address]- 9748 Dec, [facility] [place] [facility] [address] [id number] [place] [address]- 4429 Dec, [facility] [address] [id number] [place] [address]- 7143 Dec, [facility] [place] [facility] [address] [id number] [place] [address]- 7307 Dec, [facility] [address] [id number] [place] [address]- 9008 Dec, [facility] [address] [id number] [place] [address]- 7902 Dec, [facility] [address] [id number] [place] [address]- 4128 Nov, [facility] [address] [id number] [place] [address]- 6984 Nov, [facility] [address] [id number] [place] [address]- 3777 Nov, [facility] [address] [id number] [place] [address]- 6652 Nov, [facility] [address] [id number] [place] [address]- 1784 October, [facility] [address] [id number] [place] [address]- 3716 October, [facility] [address] [id number] [place] [address]- 4326 October, [facility] [place] [facility] [address] [id number] [place] [address]- 3964 October, [facility] [place] [facility] [address] [id number] [place] [address]- 3489 30 Sep, 2012 [facility] [place] [facility] [address] [id number] [place] [address]- 2181 Sep, [facility] [place] [facility] [address] [id number] [place] [address]- 6513 16 Sep, 2012 [facility] [place] [facility] [address] [id number] [place] [address]- 4436 Sep, [facility] [address] [id number] [place] [address]- 0897 Sep, [facility] [place] [facility] [address] [id number] [place] [address]- 2074 Sep, [facility] [place] [facility] [address] [id number] [place] [address]- 9853 Sep, [facility] [place] [facility] [address] [id number] [place] [address]- 3294 Sep, [facility] [place] [facility] [address] [id number] [place] [address]- 5566 Aug, [facility] [place] [facility] [address] [id number] [place] [address]- 2976 Aug, [facility] [place] [facility] [address] [id number] [place] [address]- 5471 Aug, [facility] [address] [id number] [place] [address]- 0499 18 Jul, 2012 [facility] [address] [id number] [place] [address]- 1338 08 Jul, 2012 [facility] [place] [facility] [address] [id number] [place] [address]- 3316 Jul, [facility] [place] [facility] [address] [id number] [place] [address]- 9511 Jul, [facility] [place] [facility] [address] [id number] [place] [address]- 0557 05 Jul, 2012 [facility] [place] [facility] [address] [id number] [place] [address]- 3861 Jun, [facility] [place] [facility] [address] [id number] [place] [address]- 1376 Jun, [facility] [place] [facility] [address] [id number] [place] [address]- 0113 Jun, [facility] [place] [facility] [address] [id number] [place] [address]- 7706 May, [facility] [place] [facility] [address] [id number] [place] [address]- 1966 May, [facility] [place] [facility] [address] [id number] [place] [address]- 7976 May, [facility] [place] [facility] [address] [id number] [place] [address]- 0626 May, [facility] [place] [facility] [address] [id number] [place] [address]- 6153 May, [facility] [place] [facility] [address] [id number] [place] [address]- 6036 May, [facility] [place] [facility] [address] [id number] [place] [address]- 1305 May, [facility] [place] [facility] [address] [id number] [place] [address]- 4904 Apr, [facility] [place] [facility] [address] [id number] [place] [address]- 2952 Apr, [facility] [place] [facility] [address] [id number] [place] [address]- 7290 Apr, [facility] [place] [facility] [address] [id number] [place] [address]- 4771 Apr, [facility] [place] [facility] [address] [id number] [place] [address]- 8541 Apr, [facility] [place] [facility] [address] [id number] [place] [address]- 4045 Apr, [facility] [place] [facility] [address] [id number] [place] [address]- 5997 13 Apr, 2012 [facility] [place] [facility] [address] [id number] [place] [address]- 8001 13 Apr, 2012 [facility] [place] [facility] [address] [id number] [place] [address]- 3715 Apr, 2011 [facility] [place] [facility] [address] [id number] [place] [address]- 6045 Apr, [facility] [place] [facility] [address] [id number] [place] [address]- 0676 Apr, [facility] [place] [facility] [address] [id number] [place] [address]- 4274 Mar, [facility] [place] [facility] [address] [id number] [place] [address]- 7184 Mar, [facility] [place] [facility] [address] [id number] [place] [address]- 9625 Mar, [facility] [place] [facility] [address] [id number] [place] [address]- 2763 Mar, [facility] [place] [facility] [address] [id number] [place] [address]- 9869 Mar, [facility] [place] [facility] [address] [id number] [place] [address] 5444 Mar, [facility] [place] [facility] [address] [id number] [place] [address]298 Mar, [facility] [place] [facility] [address] [id number] [place] [address] 78[address] Mar, [facility] [place] [facility] [address] [id number] [place] [address] Mar, [facility] [place] [facility] [address] [id number] [place] [address]381 16 Mar, 2012 [facility] [place] [facility] [address] [id number] [place] [address] Mar, [facility] [place] [facility] [address] [id number] [place] [address]- [address] 2012 [facility] [place] [facility] [address] [id number] [place] [address] 27 Feb, 2011 [facility] [place] [facility] [address] [id number] [place] [address]31 27 Feb, 2011 [facility] [place] [facility] [address] [id number] [place] [address] 26 Feb, 2012 [facility] [place] [facility] [address] [id number] [place] [address]- [address]146 24 Feb, 2011 [facility] [place] [facility] [address] [id number] [place] [address]- 1516 19 Feb, 2011 [facility] [place] [facility] [address] [id number] [place] [address]- [address] 18 Feb, 2012 [facility] [place] [facility] [address] [id number] [place] [address]- 5329 18 Feb, 2012 [facility] [place] [facility] [address] [id number] [place] [address]- [address] Feb, [facility] [place] [facility] [address] [id number] [place] [address] Jan, [facility] [place] [facility] [address] [id number] [place] [address]- 4785 Jan, [facility] [place] [facility] [address] [id number] [place] [address]- 9068 Jan, [facility] [place] [facility] [address] [id number] [place] [address]- 7795 Jan, [facility] [place] [facility] [address] [id number], [place] [address]- [address] Dec, [facility] [place] [facility] [address] [id number] [place] [address]- [address]26 Dec, [facility] [place] [facility] [address] [id number] [place] [address]- [address]293 Dec, [facility] [place] [facility] [address] [id number] [place] [address]- [address]44 Dec, [facility] [place] [facility] [address] [id number], [place] [address] Dec, [facility] [place] [facility] [address] [id number] [place] [address]- 8880 Dec, [facility] [place] [facility] [address] [id number] [place] [address]- 1172 Dec, [facility] [place] [facility] [address] [id number] [place] [address]- 3766 Dec, [facility] [place] [facility] [address] [id number] [place] [address]- 3592 Dec, [facility] [place] [facility] [address] [id number] [place] [address]- [address]85 Dec, [facility] [place] [facility] [address] [id number] [place] [address]- 4816 Dec, [facility] [place] [facility] [address] [id number] [place] [address]- 3457 Dec, [facility] [place] [facility] [address] [id number] [place] [address]114 Dec, [facility] [place] [facility] [address] [id number] [place] [address]- 8027 Dec, [facility] [place] [facility] [address] [id number] [place] [address]- 1147 Nov, [facility] [place] [facility] [address] [id number] [place] [address]- [address]457 14 Nov, 2011 [facility] [place] [facility] [address] [id number] [place] [address]- 9545 Nov, [facility] [place] [facility] [address] [id number] [place] [address]- 9070 Nov, [facility] [place] [facility] [address] [id number] [place] [address]22 Nov, [facility] [place] [facility] [address] [id number] [place] [address]- 3210 Nov, [facility] [place] [facility] [address] [id number] [place] [address]- [address] 30 Oct, 2011 [facility] [place] [facility] [address] [id number] [place] [address] 5829 October, [facility] [place] [facility] [address] [id number] [place] [address]- 8466 October, [facility] [place] [facility] [address] [id number] [place] [address]- 2320 October, [facility] [place] [facility] [address] [id number] [place] [address]- 9708 Sep, [facility] [place] [facility] [address] [id number] [place] [address]- 2595 17 Sep, 2011 [facility] [place] [facility] [address] [id number] [place] [address]- 3861 Sep, [facility] [place] [facility] [address] [id number] [place] [address]- 7380 Sep, [facility] [place] [facility] [address] [id number] [place] [address]- 6731 Sep, [facility] [place] [facility] [address] [id number] [place] [address]- 3974 Aug, [facility] [place] [facility] [address] [id number] [place] [address]- [address]282 Aug, [facility] [place] [facility] [address] [id number] [place] [address]- 9827 Aug, [facility] [place] [facility] [address] [id number] [place] [address]- 1397 Aug, [facility] [place] [facility] [address] [id number] [place] [address]- 7493 13 Aug, 2011 [facility] [place] [facility] [address] [id number] [place] [address] Aug, [facility] [place] [facility] [address] [id number] [place] [address] Aug, [facility] [address] [facility] [id number], [place] [address] Jul, [facility] [address] [facility] [id number], [place] [address]- [address] Jul, [facility] [address] [facility] [id number], [place] [address]- 9206 Jul, [facility] [address] [facility] [id number], [place] [address] Jul, [facility] [address] [facility] [id number], [place] [address] Jun, [address] [id number] Jun, [facility] [address] [facility] [id number], [place] [address]578 Jun, [facility] [address] [facility] [id number], [place] [address]- [address]881 Jun, [facility] [address] [facility] [id number], [place] [address] 4[address] Jun, [facility] [address] [id number], [place] [address] Jun, [facility] [address] [id number], [place] [address] Jun, [facility] [place] [facility] [address] [facility] [id number], [place] [address]- 1627 Jun, [facility] [place] [facility] [address] [facility] [id number], [place] [address]- 1200 May, [facility] [place] [facility] [address] [facility] [id number], [place] [address]- 4677 May, [facility] [place] [facility] [address] [facility] [id number], [place] [address]- 4786 May, [facility] [facility] [address] [facility] [id number], [place] [address] May, [facility] [place] [facility] [address] [id number] [place] [address] May, [facility] [place] [facility] [address] [id number] [place] [address] May, [facility] [place] [facility] [address] [id number] [place] [address] May, [facility] [place] [facility] [address] [id number] [place] [address] 29 Apr, 2011 [facility] [place] [facility] [id number] [place] [address], [place] [address] Apr, [facility] [place] [facility] [address] [id number] [place] [address] Apr, [facility] [place] [facility] [address] [id number] [place] [address] Mar, [facility] [place] [facility] [address] [id number] [place] [address] Mar, [facility] [place] [facility] [address] [facility] [id number] [place] [address] 14 Mar, 2011 [facility] [place] [facility] [address] [facility] [id number] [place] [address] Mar, [facility] [place] [facility] [address] [id number], [place] [address] 10 Mar, 2011 [facility] [place] [facility] [address] [id number], [place] [address] Mar, [facility] [place] [facility] [address] [id number] [place] [address] Mar, [facility] [place] [facility] [address] [facility] [id number], [place] [address] Jan, [facility] [facility] [address] [facility] [id number] [place] [address] May, [facility] [place] [facility] [address] [id number] [place] [address] 21 May, 2010 [facility] [place] [facility] [address] [id number] [place] [address] 13 May, 2010 [facility] [place] [facility] [address] [id number] [place] [address] 13 May, 2010 [facility] [place] [facility] [address] [id number] [place] [address] 2546 10 May, 2010 [facility] [place] [facility] [address] [id number] [place] [address] 254 06 May, 2010 [facility] [place] [facility] [address] [id number] [place] [address]- [address] 29 Apr, 2010 [facility] [place] [facility] [address] [id number] [place] [address] 26 Apr, 2010 [facility] [place] [facility] [address] [id number] [place] [address] 19 Apr, 2010 [facility] [place] [facility] [address] [id number] [place] [address]- 15[address] 18 Apr, 2010 [facility] [place] [facility] [address] [id number] [place] [address] 15 Apr, 2010 [facility] [place] [facility] [address] [id number] [place] [address] 12 Apr, 2010 [facility] [place] [facility] [address] [id number] [place] [address] 12 Apr, 2010 [facility] [place] [facility] [address] [id number] [place] [address] 2549 05 Apr, 2010 [facility] [place] [facility] [address] [id number] [place] [address] 2546 05 Apr, 2010 [facility] [place] [facility] [address] [id number] [place] [address] Apr, [facility] [facility] [address] [id number] [place] [address] Mar, [facility] [address] [facility] [id number], [place] [address] Mar, [facility] [address] [facility] [id number], [place] [address] Mar, [facility] [address] [facility] [id number], [place] [address] Mar, [facility] [address] [facility] [id number], [place] [address] Mar, [facility] [address] [facility] [id number], [place] [address] Dec, [facility] [address] [facility] [id number], [place] [address] Nov, IMMUNIZATIONS No Known Immunizations SOCIAL HISTORY Never Assessed REASON FOR VISIT INR- David Adam Rn PLAN OF CARE Activity Details Follow Up prn Reason: VITAL SIGNS MEDICATIONS Unknown Medications RESULTS Name Result Date Reference Range INR (IN HOUSE) 2017-03-12 INR 2.1 1.10 - 3.30 PREVIOUS INR CURRENT COUMADIN DOSE 1.5 mg M,,F- 1 mg T,,Sat, Sun NEW COUMADIN DOSE No change Lot # [id number] Exp date 07/06/17 PROCEDURES Procedure Date Ordered Result Body Site PROTHROMBIN TIME Mar 12, 2017 INSTRUCTIONS MEDICATIONS ADMINISTERED No Known Medications [...] Hospitalization [place] [facility] [place]
--- OUTSIDE RECORDS SUMMARY | 2018-02-04 13:33 | XMS REPORT ---
Author Author KATHYCRICKETA Organization [facility] Address [address] [place] [address] Care Team Providers Care Hospital Cleaner Name Role Phone ESTRELLITACRICKET ADANA Unavailable PROBLEMS Type Condition ICD9-CM Code YFR12-KD Code Onset Dates Condition Status SNOMED Code Problem Chronic kidney disease, unspecified stage N18.9 Active 247406098 Problem History of colon polyps Z86.010 Active 297917887 Problem Gastroesophageal reflux disease without esophagitis K21.9 Active 674815891 Problem Iron deficiency anemia, unspecified iron deficiency anemia type D50.9 Active 12258551 Problem Anxiety F41.9 Active 18237136 Problem Personality disorder F60.9 Active 96884829 Problem Anemia, unspecified type D64.9 Active 438286440 Problem Age-related osteoporosis without current pathological fracture M81.0 Active 72138032 Problem Factitious disorder imposed on self, recurrent episode F68.10 Active 21660609 Problem Back pain M54.9 Active 475467633 Problem History of CVA with residual deficit I69.30 Active 214560545 Problem Insomnia, unspecified type G47.00 Active 915506886 Problem Seizure disorder G40.909 Active 539318951 Problem Perennial allergic rhinitis, unspecified allergic rhinitis trigger J30.89 Active 789098607 ALLERGIES No Information ENCOUNTERS Encounter Location Date Diagnosis [place] [address], [place] [address] Dec, [place] [id number] [place] [address] 13729- 2812 October, [place] [id number] [place] [address] 69368- 3859 Sep, [place] [address], [place] [address] 68[address] Sep, [facility] [id number], [place] [address] 2025 Sep, [facility] [address], [place] [address] 2207 Sep, [facility] [id number] [address] 4177 Sep, [facility] [address], [place] [address] 9[address] Aug, [facility] [id number] [address] 0792 Aug, Back pain M54.9 [facility] [address], [place] [address] 1308 Aug, Factitious disorder imposed on self, recurrent episode F68.10 ; Personality disorder F60.9 ; Insomnia, unspecified type G47.00 and Anxiety F41.9 [facility] [id number] [address] Aug, Back pain M54.9 ; Iron deficiency anemia, unspecified iron deficiency anemia type D50.9 ; Chronic kidney disease, unspecified stage N18.9 and Breast cancer screening Z12.31 [facility] [id number] [id number] Jul, Back pain M54.9 [facility] [address] [id number] [id number] Jul, [facility] [address] [id number] [id number] Jul, [facility] [address] [id number] [id number] Jun, Back pain M54.9 [facility] [id number] [id number] Jun, [facility] [address] [id number] [id number] Jun, Back pain M54.9 [facility] [address], [place] [address]- 6965 Jun, Back pain M54.9 ; Seizure disorder G40.909 and Age-related osteoporosis without current pathological fracture M81.0 [facility] [id number] [place] [address] [id number] May, [facility] [id number] [place] [address] 10304- 1796 May, Back pain M54.9 [facility] [id number] [place] [address] 27876- 7272 Apr, Back pain M54.9 ; Encounter for immunization Z23 ; Gastroesophageal reflux disease without esophagitis K21.9 ; Age-related osteoporosis without current pathological fracture M81.0 and Chronic pruritus L29.9 [facility] [id number] [place] [address] 03512- 1166 Apr, History of CVA with residual deficit I69.30 [facility] [id number] [place] [address] 55556- 8003 Apr, Factitious disorder imposed on self, recurrent episode F68.10 and Personality disorder F60.9 [facility] [id number] [place] [address] [id number] Apr, Back pain M54.9 [facility] [address], [place] [address] 3822 Mar, Factitious disorder imposed on self, recurrent episode F68.10 [facility] [address], [place] [address] 56[address] Mar, [facility] [id number] [place] [address] [id number] Mar, [facility] [id number] [place] [address] [id number] Mar, Back pain M54.9 [facility] [id number] [place] [address] 17869- 0865 Mar, Back pain M54.9 ; Seizure disorder G40.909 and Age-related osteoporosis without current pathological fracture M81.0 [facility] [id number] [place] [address] 07416- 7935 Feb, History of CVA with residual deficit I69.30 [facility] [address] [place] [address] 14995- 1193 Feb, Factitious disorder imposed on self, recurrent episode F68.10 and Personality disorder F60.9 [facility] [id number] [place] [address] 42633- 4089 15 Feb, 2017 Back pain M54.9 [facility] [id number] [place] [address] 98787- 9641 Feb, [place] [id number] [place] [address] 21302- 9039 Jan, [facility] [address] [place] [id number] Jan, Age- related osteoporosis without current pathological fracture M81.0 and Allergic state, subsequent encounter T78.40XD [facility] [id number] [place] [address] 54608- 7883 Jan, Factitious disorder imposed on self, recurrent episode F68.10 and Personality disorder F60.9 [facility] [address], [place] [address] 5[address] Dec, Back pain M54.9 [facility] [address] [place] [address] 54142- 6013 Dec, Personality disorder F60.9 and Factitious disorder imposed on self, recurrent episode F68.10 [facility] [id number] [place] [address] [id number] Dec, Back pain M54.9 [facility] [id number] [place] [address] [id number] Dec, [place] [id number] [id number] Dec, [facility] [address], [place] [address] 4156 Dec, [facility] [address], [place] [address]- 9582 Nov, [facility] [address], [place] [address]- 3035 Nov, Back pain M54.9 ; Anemia, unspecified type D64.9 and History of colon polyps Z86.010 [facility] [address], [place] [address] 7519 Nov, Back pain M54.9 [facility] [id number] [id number] October, Back pain M54.9 [facility] [address] [place] [address] [id number] October, Back pain M54.9 and Gastroesophageal reflux disease without esophagitis K21.9 [facility] [id number] [id number] Sep, [facility] [address], [place] [address]- 9804 Sep, [facility] [address], [place] [address]- 2399 Sep, [facility] [address], [place] [address]- 7465 Sep, [facility] [id number], [place] [address]- 2988 Sep, [facility] [address], [place] [address]- 0453 Sep, Seizure disorder G40.909 [facility] [address], [place] [address]- 7375 Sep, Back pain M54.9 [facility] [address], [place] [address]- 8509 Sep, [facility] [address] [place] [address] 89311- 8521 31 Aug, 2016 Back pain M54.9 [facility] [address], [place] [address]- 3946 Aug, Seizure disorder G40.909 [facility] [id number] [place] [address] [id number] 17 Aug, 2016 [facility] [id number] [place] [address] [id number] 16 Aug, 2016 Back pain M54.9 [facility] [id number] [place] [address] [id number] 14 Aug, 2016 Back pain M54.9 [facility] [id number] [place] [address] [id number] 06 Aug, 2016 Back pain M54.9 [facility] [address] [place] [address] [id number] Jul, Weakness R53.1 [facility] [address] [place] [address] 96643- 0991 Jul, Seizure disorder G40.909 [facility] [address], [place] [address]- 3571 Jul, [facility] [address], [place] [address]- 0270 Jul, Breast cancer screening Z12.39 [facility] [address], [place] [address]- 5897 Jul, [facility] [address], [place] [address]- 4171 Jul, [facility] [address], [place] [address]- 7351 Jul, [facility] [id number] [place] [address] 61029- 0918 Jul, Seizure disorder G40.909 ; Fatigue, unspecified type R53.83 ; Perennial allergic rhinitis, unspecified allergic rhinitis trigger J30.89 and Chronic kidney disease, unspecified stage N18.9 [facility] [id number] [place] [address] 36040- 3869 Jul, [facility] [id number] [place] [address] 47900- 1766 Jul, Seizure disorder G40.909 [facility] [id number] [place] [address] 56287- 1122 Jun, [facility] [id number] [place] [address] 82993- 7597 Jun, [address] [id number] Jun, Perennial allergic rhinitis, unspecified allergic rhinitis trigger J30.89 [facility] [id number] [place] [address] [id number] Jun, [facility] [id number] [place] [address] 63657- 2127 Jun, Seizure disorder G40.909 [facility] [id number] [place] [address] [id number] Jun, [facility] [id number] [place] [address] [id number] May, [facility] [id number] [place] [address] 96810- 3529 May, [facility] [id number] [place] [address] 83466- 2350 May, [facility] [id number] [place] [address] 70576- 3382 May, [facility] [address] [place] [address] 86194- 1819 May, History of CVA with residual deficit I69.30 [facility] [address], [place] [address]- 7150 May, [facility] [id number] [place] [address] 89794- 0924 May, [facility] [id number] [place] [address] 76619- 9944 May, [facility] [id number] [place] [address] 49604- 0569 May, Seizure disorder G40.909 [facility] [id number] [place] [address] 10209- 9218 May, [facility] [address] [place] [address] May, Back pain M54.9 and Seizure disorder G40.909 [facility] [id number] [place] [address] 38364- 3294 Apr, [facility] [address] [place] [address] 44590- 1542 Apr, Back pain M54.9 [facility] [id number] [place] [address] 95366- 4000 Mar, [facility] [address] [place] [address] Mar, Insomnia, unspecified type G47.00 [facility] [id number] [place] [address] 10069- 9817 Mar, [facility] [id number] [place] [address] 31786- 5493 Feb, [facility] [id number] [place] [address] 32891- 4840 21 Feb, 2016 [facility] [address] [place] [address] 04973- 9872 16 Feb, 2016 [facility] [id number] [place] [address] 78952- 5327 Jan, [facility] [address] [place] [address] 92753- 7532 Jan, [facility] [address] [place] [address] Jan, Seizure disorder G40.909 and Back pain M54.9 [facility] [id number] [place] [address] 21752- 7515 Dec, [facility] [id number] [place] [address] 53024- 3873 Dec, [facility] [id number] [place] [address] 86741- 5469 Dec, [facility] [id number] [place] [address] 05791- 7288 Nov, [facility] [id number] [place] [address] 39525- 4424 Nov, [facility] [id number] [place] [address] 74190- 2863 Nov, Back pain M54.9 [facility] [id number] [place] [address] 51578- 0411 October, [facility] [id number] [place] [address] 65753- 5994 October, Back pain M54.9 [facility] [id number] [place] [address] 84312- 0404 October, Seizure disorder G40.909 and B12 deficiency E53.8 [facility] [id number] [place] [address] 24756- 3114 Sep, History of CVA with residual deficit I69.30 [facility] [id number] [place] [address] 17660- 7607 Sep, [facility] [id number] [place] [address] 27639- 2395 Sep, [facility] [address], [place] [address]- 7111 Sep, Back pain M54.9 [facility] [id number] [place] [address] 22060- 2215 Sep, Seizure disorder G40.909 [facility] [address] [place] [address] 07203- 9596 25 Aug, 2015 Back pain M54.9 [facility] [id number] [place] [address] 24773- 9681 18 Aug, 2015 Seizure disorder G40.909 [facility] [id number] [place] [address] 66443- 2767 16 Aug, 2015 Back pain M54.9 [facility] [id number] [place] [address] 63132- 0563 14 Aug, 2015 Heart failure, unspecified I50.9 [facility] [id number] [place] [address] 88139- 7841 14 Aug, 2015 Medication monitoring encounter Z51.81 [facility] [id number] [place] [address] 35679- 7844 15 Jul, 2015 [facility] [id number] [place] [address] 45568- 1675 09 Jul, 2015 Seizure disorder G40.909 [facility] [address] [place] [address] 95255- 3588 05 Jul, 2015 Back pain M54.9 [facility] [address] [place] [address] 46727- 4223 Jun, [facility] [id number] [place] [address] 69346- 2134 Jun, [facility] [address] [place] [address] 31113- 6351 Jun, Mental status change R41.82 ; History of CVA with residual deficit I69.30 ; Back pain M54.9 and Seizure disorder G40.909 [facility] [address], [place] [address]- 4363 Jun, [facility] [address], [place] [address]- 0205 May, [facility] [address], [place] [address]- 5925 Apr, [facility] [id number] [place] [address] 02308- 5217 Apr, Medication monitoring encounter Z51.81 [facility] [id number] [place] [address] 78758- 8836 Mar, Vomiting R11.10 [facility] [address], [place] [address]- 0838 Mar, [facility] [id number] [place] [address] 73236- 6739 Feb, [facility] [address], [place] [address]- 3843 Feb, UTI (urinary tract infection) 599.0 [facility] [address], [place] [address]- 1756 Jan, [facility] [address], [place] [address]- 1399 Jan, [facility] [address], [place] [address]- 8338 Jan, [facility] [address], [place] [address]- 5619 Dec, [facility] [address]- 4379 Dec, [facility] [address]- 3846 Dec, [facility] [id number] [place] [address]- 7933 Dec, [facility] [place] [facility] [address] [id number] [place] [address]- 5552 Nov, UNKNOWN Nov, [facility] [place] [facility] [address] [id number] [place] [address]- 2126 October, [facility] [place] [facility] [address] [id number] [place] [address]- 3723 Sep, [facility] [place] [facility] [address] [id number] [place] [address]- 5760 Sep, [facility] [place] [facility] [address] [id number] [place] [address]- 6854 Aug, [facility] [place] [facility] [address] [facility] [id number] [place] [address]- 0853 Aug, [facility] [place] [facility] [address] [id number] [place] [address]- 5291 Jul, [facility] [place] [facility] [address] [id number] [place] [address]- 5351 Jul, [facility] [place] [facility] [address] [id number] [place] [address]- 1902 Jul, [facility] [place] [facility] [address] [facility] [id number] [place] [address]- 8192 Jul, [facility] [place] [facility] [address] [id number] [place] [address]- 1778 Jul, [facility] [place] [facility] [address] [id number] [place] [address]- 9662 Jun, [facility] [place] [facility] [address] [id number] [place] [address]- 5876 Jun, [facility] [place] [facility] [address] [id number] [place] [address]- 1046 Jun, [facility] [place] [facility] [address] [id number] [place] [address]- 5926 Jun, [facility] [place] [facility] [address] [id number] [place] [address]- 4290 Jun, [facility] [place] [facility] [address] [id number] [place] [address]- 5039 Jun, [facility] [place] [facility] [address] [id number] [place] [address]- 4637 Jun, [facility] [place] [facility] [address] [id number] [place] [address]- 9867 Jun, [facility] [place] [facility] [address] [id number] [place] [address]- 4154 Jun, [facility] [place] [facility] [address] [id number] [place] [address]- 8295 Jun, [facility] [place] [facility] [address] [id number] [place] [address]- 2881 Jun, [facility] [place] [facility] [address] [id number] [place] [address]- 9936 Jun, [facility] [place] [facility] [address] [id number] [place] [address]- 7491 Jun, [facility] [place] [facility] [address] [id number] [place] [address]- 8226 Jun, [facility] [place] [facility] [address] [id number], [place] [address]- 9165 Jun, [facility] [place] [facility] [address] [id number], [place] [address]- 8934 Jun, [facility] [place] [facility] [address] [id number] [place] [address]- 8712 Jun, [facility] [place] [facility] [address] [id number] [place] [address]- 7359 Jun, [facility] [place] [facility] [address] [id number] [place] [address]- 0669 May, [facility] [place] [facility] [address] [id number] [place] [address]- 1037 30 May, 2014 [facility] [address] [id number] [place] [address]- 5891 May, [facility] [address] [id number] [place] [address]- 8125 May, [facility] [address] [id number] [place] [address]- 7186 May, [facility] [address] [id number] [place] [address]- 4284 May, [facility] [address] [id number] [place] [address]- 2807 May, [facility] [address] [id number] [place] [address] May, [facility] [address] [id number] [place] [address] May, [facility] [address] [id number] May, [facility] [address] [id number] [place] [address] May, [facility] [address] [id number] [place] [address] May, [facility] [address] [id number] [place] [address] May, [facility] [address] [id number] [place] [address] Apr, [facility] [address] [id number] [place] [address] Apr, [facility] [address] [id number] [place] [address] Apr, [facility] [address] [id number] [place] [address] Apr, [facility] [place] [facility] [address] [id number] [place] [address] Apr, [facility] [place] [facility] [address] [id number] [place] [address] Apr, [facility] [place] [facility] [address] [id number] [place] [address] Mar, [facility] [place] [facility] [address] [id number] [place] [address] Mar, [facility] [place] [facility] [address] [id number] [place] [address] Mar, [facility] [place] [facility] [address] [id number] [place] [address] Mar, [facility] [place] [facility] [address] [id number] [place] [address] Mar, [facility] [place] [facility] [address] [id number] [place] [address] Mar, [facility] [place] [facility] [address] [id number] [place] [address] 24 Feb, 2014 [facility] [place] [facility] [address] [id number] [place] [address] 24 Feb, 2014 [facility] [place] [facility] [address] [id number] [place] [address] Feb, [facility] [place] [facility] [address] [id number] [place] [address] 23 Feb, 2014 [facility] [place] [facility] [address] [id number] [place] [address] 19 Feb, 2014 [facility] [place] [facility] [address] [id number] [place] [address] 19 Feb, 2014 [facility] [place] [facility] [address] [id number] [place] [address] 19 Feb, 2014 [facility] [place] [facility] [address] [id number] [place] [address] Feb, [facility] [place] [facility] [address] [id number] [place] [address] Feb, [facility] [place] [facility] [address] [id number] [place] [address] Feb, [facility] [address] [id number] Feb, [facility] [place] [facility] [address] [id number] [place] [address] Feb, [facility] [place] [facility] [address] [id number] [place] [address] Jan, [facility] [place] [facility] [address] [id number] [place] [address] Jan, [facility] [place] [facility] [address] [id number] [place] [address] Dec, [facility] [place] [facility] [address] [id number] [place] [address] Dec, [facility] [place] [facility] [address] [id number] [place] [address] Dec, [facility] [place] [facility] [address] [id number] [place] [address] Dec, [facility] [place] [facility] [address] [id number] [place] [address] Dec, [facility] [place] [facility] [address] [id number] [place] [address] Dec, [facility] [place] [facility] [address] [id number] [place] [address] Dec, [facility] [place] [facility] [address] [id number] [place] [address] 2868 Dec, [facility] [place] [facility] [address] [id number] [place] [address] 4647 Dec, [facility] [place] [facility] [address] [id number], [place] [address] Dec, [facility] [place] [facility] [address] [id number] [place] [address] 6996 Nov, [facility] [place] [facility] [address] [id number] [place] [address] 5891 Nov, [facility] [place] [facility] [address] [id number] [place] [address]- 1695 Nov, [facility] [place] [facility] [address] [id number] [place] [address] 2340 Nov, [facility] [place] [facility] [address] [id number] [place] [address] 7880 Nov, [facility] [place] [facility] [address] [id number] [place] [address] 2342 Nov, [facility] [place] [facility] [address] [id number] [place] [address] 8831 Nov, [facility] [place] [facility] [address] [id number] [place] [address] 9689 Nov, [facility] [place] [facility] [address] [id number] [place] [address]- 5799 Nov, [facility] [place] [facility] [address] [id number] [place] [address]- 8950 Nov, [facility] [place] [facility] [address] [id number] [place] [address]- 3504 Nov, [facility] [place] [facility] [address] [id number] [place] [address]- 7206 Nov, [facility] [place] [facility] [address] [id number] [place] [address]- 2744 Nov, [facility] [place] [facility] [address] [id number] [place] [address]- 4653 Nov, [facility] [place] [facility] [address] [id number] [place] [address]- 2059 October, [facility] [place] [facility] [address] [id number] [place] [address]- 0852 October, [facility] [place] [facility] [address] [id number] [place] [address] 3080 October, [facility] [place] [facility] [address] [id number] [place] [address] 9[address] October, [facility] [place] [facility] [address] [id number] [place] [address]- 1551 October, [facility] [place] [facility] [address] [id number] [place] [address]- 8863 October, [facility] [place] [facility] [address] [id number] [place] [address] 6965 October, [facility] [place] [facility] [address] [id number] [place] [address] 7652 October, [facility] [place] [facility] [address] [id number] [place] [address]- 6570 October, [facility] [place] [facility] [address] [id number] [place] [address]- 7458 October, [facility] [place] [facility] [address] [id number] [place] [address]- 3243 Sep, [facility] [place] [facility] [address] [id number] [place] [address]- 0541 29 Sep, 2013 [facility] [place] [facility] [address] [id number] [place] [address]- 2522 Sep, [facility] [place] [facility] [address] [id number] [place] [address] 1938 Sep, [facility] [place] [facility] [address] [id number] [place] [address]- 3180 Sep, [facility] [place] [facility] [address] [id number] [place] [address]- 5551 Sep, [facility] [place] [facility] [address] [id number] [place] [address]- 6740 Sep, [facility] [place] [facility] [address] [id number] [place] [address]- 3455 Sep, [facility] [place] [facility] [address] [id number] [place] [address]- 2569 Sep, [facility] [place] [facility] [address] [id number] [place] [address]- 2706 Sep, [facility] [place] [facility] [address] [id number] [place] [address]- 6603 Aug, [facility] [place] [facility] [address] [id number] [place] [address]- 9601 Aug, [facility] [place] [facility] [address] [id number] [place] [address]- 2921 Aug, [facility] [place] [facility] [address] [id number] [place] [address]- 4063 Aug, [facility] [place] [facility] [address] [id number] [place] [address]- 7198 Aug, [facility] [place] [facility] [address] [id number] [place] [address]- 8485 Aug, [facility] [place] [facility] [address] [id number] [place] [address]- 6887 Aug, [facility] [place] [facility] [address] [id number] [place] [address]- 2591 Aug, [facility] [place] [facility] [address] [id number] [place] [address]- 7801 Aug, [facility] [place] [facility] [address] [id number] [place] [address]- 0242 Jul, [facility] [place] [facility] [address] [id number] [place] [address]- 2281 Jul, [facility] [place] [facility] [address] [id number] [place] [address]- 6900 Jul, [facility] [place] [facility] [address] [id number] [place] [address]- 7463 Jul, [facility] [place] [facility] [address] [id number] [place] [address]- 0448 Jul, [facility] [place] [facility] [address] [id number] [place] [address]- 7536 Jul, [facility] [place] [facility] [address] [id number] [place] [address]- 6670 Jul, [facility] [place] [facility] [address] [id number] [place] [address]- 5155 Jul, [facility] [place] [facility] [address] [id number] [place] [address]- 5872 Jul, [facility] [place] [facility] [address] [facility] [id number] [place] [address]- 4663 Jul, [facility] [place] [facility] [address] [id number] [place] [address]- 3283 Jul, [facility] [place] [facility] [address] [facility] [id number] [place] [address]- 5245 Jul, [facility] [place] [facility] [address] [facility] [id number] [place] [address]- 6487 Jul, [facility] [place] [facility] [address] [facility] [id number], [place] [address]- 2490 Jul, [facility] [place] [facility] [address] [id number], [place] [address]- 6689 Jul, [facility] [place] [facility] [address] [facility] [id number] [place] [address] 2003 Jul, [facility] [place] [facility] [address] [id number], [place] [address] 750[address] Jun, [facility] [place] [facility] [address] [facility] [id number], [place] [address]- 2999 Jun, [facility] [place] [facility] [address] [facility] [id number], [place] [address]- 8326 Jun, [facility] [address] [id number] [place] [address]- 4519 Jun, [facility] [place] [facility] [address] [id number] [place] [address]- 5361 Jun, [facility] [place] [facility] [address] [facility] [id number] [place] [address]- 4478 Jun, [facility] [place] [facility] [address] [id number] [place] [address]- 4157 May, [facility] [place] [facility] [address] [id number] [place] [address]- 2953 May, [facility] [place] [facility] [address] [id number] [place] [address]- 6973 May, [facility] [place] [facility] [address] [facility] [id number] [place] [address]- 7144 May, [facility] [place] [facility] [address] [id number] [place] [address]- 0136 Apr, [facility] [place] [facility] [address] [id number] [place] [address]- 8826 Apr, [facility] [place] [facility] [address] [facility] [id number] [place] [address]- 5239 Apr, [facility] [place] [facility] [address] [id number] [place] [address]- 5048 Apr, [facility] [place] [facility] [address] [id number] [place] [address]- 0602 Apr, [facility] [place] [facility] [address] [id number] [place] [address]- 0082 Apr, [facility] [place] [facility] [address] [facility] [id number] [place] [address]- 0283 Apr, [facility] [place] [facility] [address] [facility] [id number] [place] [address]- 0217 Apr, [facility] [place] [facility] [address] [id number] [place] [address]- 7494 18 Apr, 2013 [facility] [place] [facility] [address] [id number] [place] [address]- 8474 18 Apr, 2013 [facility] [place] [facility] [address] [id number] [place] [address]- 3191 Apr, [facility] [place] [facility] [address] [id number] [place] [address]- 7209 Apr, [facility] [place] [facility] [address] [id number] [place] [address]- 8490 28 Mar, 2013 [facility] [place] [facility] [address] [id number] [place] [address]- 6621 28 Mar, 2013 [facility] [place] [facility] [address] [id number] [place] [address]- 7767 16 Mar, 2013 [facility] [place] [facility] [address] [id number] [place] [address]- 7309 16 Mar, 2013 [facility] [place] [facility] [address] [id number] [place] [address]- 9677 15 Mar, 2013 [facility] [place] [facility] [address] [id number] [place] [address]- 9711 15 Mar, 2013 [facility] [place] [facility] [address] [id number] [place] [address]- 1648 27 Feb, 2012 [facility] [place] [facility] [address] [id number] [place] [address]- 2548 25 Sep, 2012 [facility] [place] [facility] [address] [id number] [place] [address] 2545 25 Sep, 2012 [facility] [place] [facility] [address] [id number] [place] [address]- 2546 23 Sep, 2012 [facility] [place] [facility] [address] [id number] [place] [address]- 2546 17 Sep, 2012 [facility] [place] [facility] [address] [id number] [place] [address]- 8545 Feb, [facility] [place] [facility] [address] [id number] [place] [address]- 5901 Feb, [facility] [place] [facility] [address] [id number] [place] [address]- 9683 Jan, [facility] [place] [facility] [address] [id number] [place] [address]- 3293 Jan, [facility] [place] [facility] [address] [id number] [place] [address]- 0490 Jan, [facility] [place] [facility] [address] [id number] [place] [address]- 6013 Jan, [facility] [place] [facility] [address] [id number] [place] [address]- 5311 Jan, [facility] [place] [facility] [address] [id number] [place] [address]- 9608 Jan, [facility] [place] [facility] [address] [id number] [place] [address]- 1197 Jan, [facility] [place] [facility] [address] [id number] [place] [address]- 9993 Dec, [facility] [place] [facility] [address] [id number] [place] [address]- 4671 Dec, [facility] [place] [facility] [address] [id number] [place] [address]- 7993 Dec, [facility] [place] [facility] [address] [id number] [place] [address]- 0209 Dec, [facility] [place] [facility] [address] [id number] [place] [address]- 4096 Dec, [facility] [place] [facility] [address] [id number] [place] [address]- 3837 Dec, [facility] [place] [facility] [address] [id number] [place] [address]- 2623 Nov, [facility] [place] [facility] [address] [id number] [place] [address]- 3055 Nov, [facility] [place] [facility] [address] [id number] [place] [address]- 5503 Nov, [facility] [address] [id number] [place] [address]- 5658 Nov, [facility] [address] [id number] [place] [address]- 0651 October, [facility] [address] [id number] [place] [address]- 2061 October, [facility] [address] [id number] [place] [address]- 2495 October, [facility] [address] [id number] [place] [address]- 8769 October, [facility] [address] [id number] [place] [address]- 4093 Sep, [facility] [address] [id number] [place] [address]- 0387 Sep, [facility] [address] [id number] [place] [address]- 2497 Sep, [facility] [address] [id number] [place] [address]- 1057 Sep, [facility] [address] [id number] [place] [address]- 5705 Sep, [facility] [address] [id number] [place] [address]- 8185 Sep, [facility] [address] [id number] [place] [address]- 3662 Sep, [facility] [address] [id number] [place] [address]- 7284 Sep, [facility] [address] [id number] [place] [address]- 3106 Aug, [facility] [address] [id number] [place] [address]- 9461 13 Aug, 2012 [facility] [place] [facility] [address] [id number] [place] [address]- 1354 05 Aug, 2012 [facility] [place] [facility] [address] [id number] [place] [address]- 9193 18 Jul, 2012 [facility] [place] [facility] [address] [id number] [place] [address]- 9209 08 Jul, 2012 [facility] [place] [facility] [address] [id number] [place] [address]- 9317 07 Jul, 2012 [facility] [place] [facility] [address] [id number] [place] [address]- 9565 06 Jul, 2012 [facility] [place] [facility] [address] [id number] [place] [address]- 7126 05 Jul, 2012 [facility] [place] [facility] [address] [id number] [place] [address]- 2620 Jun, [facility] [place] [facility] [address] [id number] [place] [address]- 6293 Jun, [facility] [place] [facility] [address] [id number] [place] [address]- 9774 Jun, [facility] [place] [facility] [address] [id number] [place] [address]- 4723 May, [facility] [place] [facility] [address] [id number], [place] [address]- 6995 May, [facility] [place] [facility] [address] [id number] [place] [address]- 1502 May, [facility] [place] [facility] [address] [id number] [place] [address]- 6996 May, [facility] [place] [facility] [address] [id number] [place] [address]- 8510 May, [facility] [place] [facility] [address] [id number], [place] [address]- 1541 May, [facility] [place] [facility] [address] [id number] [place] [address]- 6415 May, [facility] [place] [facility] [address] [id number], [place] [address]- 0052 Apr, [facility] [place] [facility] [address] [facility] [id number] [place] [address]- 3757 Apr, [facility] [place] [facility] [address] [id number], [place] [address]- 3617 Apr, [facility] [place] [facility] [address] [facility] [id number] [place] [address], [place] [address]- 2992 Apr, [facility] [place] [facility] [address] [facility] [id number] [place] [address]- 7583 Apr, [facility] [place] [facility] [id number] [place] [address]- 7967 Apr, [facility] [place] [facility] [address] [facility] [id number], [place] [address]- 6770 Apr, [facility] [place] [facility] [address] [id number], [place] [address]- 3406 Apr, [facility] [place] [facility] [address] [id number], [place] [address]- 2444 Apr, [facility] [place] [facility] [address] [facility] [id number], [place] [address]- 9007 Apr, [facility] [place] [facility] [address] [facility] [id number], [place] [address]- 4465 Apr, [facility] [place] [facility] [address] [id number], [place] [address]- 1991 Mar, [facility] [place] [facility] [address] [facility] [id number], [place] [address]- 5752 Mar, [facility] [place] [facility] [address] [id number], [place] [address]- 8696 Mar, [facility] [place] [facility] [address] [id number] [place] [address]- 6043 23 Mar, 2011 [facility] [place] [facility] [address] [id number] [place] [address]- 5344 23 Mar, 2012 [facility] [place] [facility] [address] [id number] [place] [address]- 5076 23 Mar, 2012 [facility] [place] [facility] [address] [id number] [place] [address]- 7169 Mar, [facility] [place] [facility] [address] [id number] [place] [address]- 4799 19 Mar, 2012 [facility] [place] [facility] [address] [id number] [place] [address]- 5049 16 Mar, 2012 [facility] [place] [facility] [address] [id number] [place] [address]- 3842 16 Mar, 2012 [facility] [place] [facility] [address] [id number] [place] [address]- 4973 04 Mar, 2012 [facility] [place] [facility] [address] [id number] [place] [address]- 4438 28 Sep, 2011 [facility] [place] [facility] [address] [id number] [place] [address]- 0406 27 Sep, 2011 [facility] [place] [facility] [address] [id number] [place] [address]- 2545 27 Sep, 2011 [facility] [place] [facility] [address] [id number] [place] [address]- 2544 26 Sep, 2011 [facility] [place] [facility] [address] [id number] [place] [address] 2549 24 Sep, 2011 [facility] [place] [facility] [address] [id number] [place] [address] 2546 19 Sep, 2011 [facility] [place] [facility] [address] [id number] [place] [address] 2546 18 Sep, 2011 [facility] [place] [facility] [address] [id number] [place] [address]- 8820 Feb, [facility] [place] [facility] [address] [id number] [place] [address]- 8044 Feb, [facility] [place] [facility] [address] [id number] [place] [address]- 9537 Jan, [facility] [place] [facility] [address] [id number] [place] [address]- 2315 Jan, [facility] [place] [facility] [address] [id number] [place] [address]- 1313 Jan, [facility] [place] [facility] [address] [id number] [place] [address]- 8633 Jan, [facility] [place] [facility] [address] [id number] [place] [address]- 6700 Dec, [facility] [place] [facility] [address] [id number] [place] [address]- 0732 Dec, [facility] [place] [facility] [address] [id number] [place] [address]- 0077 Dec, [facility] [place] [facility] [address] [id number] [place] [address]- 9255 Dec, [facility] [place] [facility] [address] [id number] [place] [address]- 6934 Dec, [facility] [place] [facility] [address] [id number] [place] [address]- 4640 Dec, [facility] [place] [facility] [address] [id number] [place] [address]- 8241 Dec, [facility] [place] [facility] [address] [id number] [place] [address]- 9752 Dec, [facility] [place] [facility] [address] [id number] [place] [address]- 1899 Dec, [facility] [place] [facility] [address] [id number] [place] [address] Dec, [facility] [place] [facility] [address] [id number] [place] [address] Dec, [facility] [place] [facility] [address] [id number] [place] [address]463 Dec, [facility] [place] [facility] [address] [id number] [place] [address] Dec, [facility] [place] [facility] [address] [id number] [place] [address]106 Dec, [facility] [place] [facility] [address] [id number] [place] [address]33 Nov, [facility] [place] [facility] [address] [id number] [place] [address] 1069 Nov, [facility] [place] [facility] [address] [id number] [place] [address] Nov, [facility] [place] [facility] [address] [id number] [place] [address] Nov, [facility] [place] [facility] [address] [id number] [place] [address] 8759 Nov, [facility] [place] [facility] [address] [id number] [place] [address] Nov, [facility] [place] [facility] [address] [id number] [place] [address] 8822 October, [facility] [place] [facility] [address] [id number] [place] [address]45 October, [facility] [place] [facility] [address] [id number] [place] [address] 4975 October, [facility] [place] [facility] [address] [id number] [place] [address] 5717 October, [facility] [place] [facility] [address] [id number] [place] [address]- 4807 Sep, [facility] [place] [facility] [address] [id number] [place] [address]24 Sep, [facility] [place] [facility] [address] [id number] [place] [address]- 5531 13 Sep, 2011 [facility] [address] [id number] [place] [address] 09 Sep, 2011 [facility] [address] [id number] [place] [address] 3846 Sep, [facility] [address] [id number] [place] [address]857 Aug, [facility] [address] [id number] [place] [address] Aug, [facility] [address] [id number] [place] [address] 4477 Aug, [facility] [address] [facility] [id number] [place] [address]- 6976 Aug, [facility] [address] [id number] [place] [address] 1350 Aug, [facility] [address] [id number] [place] [address]- [address]42 Aug, [facility] [address] [facility] [id number] [place] [address] 9755 Aug, [facility] [address] [facility] [id number] [place] [address]- 6612 16 Jul, 2011 [facility] [address] [id number], [place] [address] 16 Jul, 2011 [facility] [address] [id number] [place] [address]- 1858 15 Jul, 2011 [facility] [address] [id number] [place] [address] 7660 Jul, [facility] [address] [facility] [id number], [place] [address] Jun, [facility] [address] [place] [id number] Jun, [facility] [address] [id number] [place] [address]28 Jun, [facility] [place] [facility] [address] [id number] [place] [address] 1316 Jun, [facility] [place] [facility] [address] [facility] [id number] [place] [address]- 5317 Jun, [facility] [place] [facility] [address] [id number] [place] [address]- [address]127 Jun, [facility] [address] [id number] [place] [address]- 4124 Jun, [facility] [place] [facility] [address] [id number] [place] [address]- 1601 Jun, [facility] [place] [facility] [address] [id number] [place] [address]- 2729 May, [facility] [place] [facility] [address] [id number] [place] [address]- 5833 May, [facility] [place] [facility] [address] [id number] [place] [address]- 8676 May, [facility] [place] [facility] [address] [facility] [id number] [place] [address]- 7603 May, [facility] [place] [facility] [address] [id number], [place] [address]- 7875 May, [facility] [place] [facility] [address] [id number], [place] [address] May, [facility] [place] [facility] [address] [id number] [place] [address]- 5978 May, [facility] [place] [facility] [address] [id number], [place] [address]- [address] 29 Apr, 2011 [facility] [place] [facility] [address] [id number] [place] [address]- 9943 Apr, [facility] [place] [facility] [address] [id number] [place] [address]- 8321 03 Apr, 2011 [facility] [place] [facility] [address] [id number] [place] [address]- 9067 27 Mar, 2011 [facility] [place] [facility] [address] [id number] [place] [address]- 6996 20 Mar, 2011 [facility] [place] [facility] [address] [id number] [place] [address]- 6636 14 Mar, 2011 [facility] [place] [facility] [address] [id number] [place] [address] 2546 11 Mar, 2011 [facility] [place] [facility] [address] [id number] [place] [address]- 7157 10 Mar, 2011 [facility] [place] [facility] [address] [id number] [place] [address]- 1696 10 Mar, 2011 [facility] [place] [facility] [address] [id number] [place] [address]- 8581 10 Mar, 2011 [facility] [place] [facility] [address] [id number] [place] [address] 0408 Jan, [facility] [place] [facility] [address] [id number] [place] [address]- 5317 27 May, 2010 [facility] [place] [facility] [address] [id number] [place] [address]- 2540 May, [facility] [place] [facility] [address] [id number] [place] [address] 2546 13 May, 2010 [facility] [place] [facility] [address] [id number] [place] [address] 2546 13 May, 2010 [facility] [place] [facility] [address] [id number] [place] [address] 2546 10 May, 2010 [facility] [place] [facility] [address] [id number] [place] [address]- 2546 06 May, 2010 [facility] [place] [facility] [address] [id number] [place] [address] 2541 Apr, [facility] [place] [facility] [address] [id number] [place] [address]- 0715 Apr, [facility] [place] [facility] [address] [id number] [place] [address]- 1312 Apr, [facility] [place] [facility] [address] [id number] [place] [address]- 2208 Apr, [facility] [place] [facility] [address] [id number] [place] [address]- 4229 Apr, [facility] [facility] [facility] [address] [id number] [place] [address] Apr, [facility] [place] [facility] [address] [id number] [place] [address] Apr, [facility] [place] [facility] [address] [id number] [place] [address] Apr, [facility] [place] [facility] [address] [id number] [place] [address] Apr, [facility] [place] [facility] [address] [id number] [place] [address] Apr, [facility] [place] [facility] [address] [id number] [place] [address] Mar, [facility] [place] [facility] [address] [id number] [place] [address] Mar, [facility] [place] [facility] [address] [id number], [place] [address] Mar, [facility] [place] [facility] [address] [id number] [place] [address] Mar, [facility] [place] [facility] [address] [id number] [place] [address] Mar, [facility] [place] [facility] [address] [id number], [place] [address] Dec, [facility] [place] [facility] [address] [id number] [id number] Nov, IMMUNIZATIONS No Known Immunizations SOCIAL HISTORY Never Assessed REASON FOR VISIT Requests return call PLAN OF CARE VITAL SIGNS MEDICATIONS Unknown [...] surgery and skin graft, cholecysectomy Hospitalization History [facility] 12/2016
--- OUTSIDE RECORDS SUMMARY | 2018-02-04 13:34 | XMS REPORT ---
Author Author NAHOMY BETH Organization [facility] Address [address] [place] [address] Care Team Providers Care Client Services Director Name Role Phone NAHOMY BETH Unavailable PROBLEMS Type Condition ICD9-CM Code SXO85-ZU Code Onset Dates Condition Status SNOMED Code Problem History of colon polyps Z86.010 Active 048343562 Problem Factitious disorder imposed on self, recurrent episode F68.10 Active 97628614 Problem Anemia, unspecified type D64.9 Active 954586017 Problem Allergic state, subsequent encounter T78.40XD Active 424504691 Problem Unspecified psychosis not due to a substance or known physiological condition F29 Active 45381271 Problem Age-related osteoporosis without current pathological fracture M81.0 Active 12644139 Problem Personality disorder F60.9 Active 82044954 Problem Iron deficiency anemia, unspecified iron deficiency anemia type D50.9 Active 43985966 Problem Anxiety F41.9 Active 01571876 Problem History of CVA with residual deficit I69.30 Active 633911800 Problem Insomnia, unspecified type G47.00 Active 366796021 Problem Perennial allergic rhinitis, unspecified allergic rhinitis trigger J30.89 Active 970354918 Problem Seizure disorder G40.909 Active 548433123 Problem Chronic kidney disease, unspecified stage N18.9 Active 878338082 Problem Back pain M54.9 Active 170647397 Problem Gastroesophageal reflux disease without esophagitis K21.9 Active 309183652 ALLERGIES No Information ENCOUNTERS Encounter Location Date Diagnosis [facility] [address] [facility] [id number] [address] Dec, [facility] [address] [id number] [address] 0[address] Nov, [facility] [address] [id number] [address] 8694 Nov, [place] [id number] [place] [address] 26122- 0680 October, [facility] [id number] [place] [address] 18122- 3080 October, Seizure disorder G40.909 ; Back pain M54.9 and Allergic state, subsequent encounter T78.40XD [facility] [id number] [place] [address] 72357- 5012 October, [facility] [id number] [place] [address] 72505- 1199 Sep, Back pain M54.9 [facility] [id number] [place] [address] 13238- 5670 Sep, Unspecified psychosis not due to a substance or known physiological condition F29 ; Personality disorder F60.9 and Factitious disorder imposed on self, recurrent episode F68.10 [facility] [id number] [place] [address] 74066- 4118 Sep, [facility] [id number] [place] [address] 83792- 1484 Sep, [facility] [id number] [place] [address] 27679- 6235 Sep, [facility] [id number] [place] [address] 08387- 1176 Sep, [facility] [id number] [place] [address] 31159- 9597 Aug, [facility] [id number] [place] [address] 56239- 0429 Aug, Back pain M54.9 [facility] [id number] [place] [address] 86478- 9485 Aug, Factitious disorder imposed on self, recurrent episode F68.10 ; Personality disorder F60.9 ; Insomnia, unspecified type G47.00 and Anxiety F41.9 [facility] [address] [id number] [address] 1366 Aug, Back pain M54.9 ; Iron deficiency anemia, unspecified iron deficiency anemia type D50.9 ; Chronic kidney disease, unspecified stage N18.9 and Breast cancer screening Z12.31 [facility] [address] [id number] [place] [id number] Jul, Back pain M54.9 [facility] [id number] [place] [id number] Jul, [facility] [id number] [place] [id number] Jul, [facility] [id number] [place] [address] Jun, Back pain M54.9 [facility] [id number] [place] [id number] Jun, [facility] [address] [id number] [id number] Jun, Back pain M54.9 [facility] [address] [id number] [address]- 5981 Jun, Back pain M54.9 ; Seizure disorder G40.909 and Age-related osteoporosis without current pathological fracture M81.0 [facility] [address] [id number] [place] [address] May, [facility] [address] [id number] [address] [address] May, Back pain M54.9 [facility] [address] [id number] [address] 3239 Apr, Back pain M54.9 ; Encounter for immunization Z23 ; Gastroesophageal reflux disease without esophagitis K21.9 ; Age-related osteoporosis without current pathological fracture M81.0 and Chronic pruritus L29.9 [facility] [address] [id number] [address] [address]23 Apr, History of CVA with residual deficit I69.30 [facility] [address]005[address]100[place] [address] 7036 16 Apr, 2017 Factitious disorder imposed on self, recurrent episode F68.10 and Personality disorder F60.9 [facility] [address] [id number] [address] 08 Apr, 2017 Back pain M54.9 [facility] [id number] [place] [address] 24877- 6395 Mar, Factitious disorder imposed on self, recurrent episode F68.10 [facility] [id number] [place] [address] 80279- 1580 Mar, [facility] [id number] [place] [address] [id number] Mar, [facility] [id number] [place] [address] [id number] Mar, Back pain M54.9 [facility] [id number] [place] [address] 71515- 9717 Mar, Back pain M54.9 ; Seizure disorder G40.909 and Age-related osteoporosis without current pathological fracture M81.0 [facility] [id number] [place] [address] 55660- 8217 Feb, History of CVA with residual deficit I69.30 [facility] [address] [id number] [address]- 4273 Feb, Factitious disorder imposed on self, recurrent episode F68.10 and Personality disorder F60.9 [facility] [id number] [place] [address] 53870- 7687 15 Feb, 2017 Back pain M54.9 [facility] [address]00565100[place] [address] 3773 Feb, [facility] [id number] [place] [address] 20801- 8908 Jan, [facility] [address] [id number] Jan, Age- related osteoporosis without current pathological fracture M81.0 and Allergic state, subsequent encounter T78.40XD [facility] [address]00565100[place] [address] 8263 Jan, Factitious disorder imposed on self, recurrent episode F68.10 and Personality disorder F60.9 [facility] [id number] [place] [address] 42287- 0222 Dec, Back pain M54.9 [facility] [id number] [place] [address] 17590- 6839 Dec, Personality disorder F60.9 and Factitious disorder imposed on self, recurrent episode F68.10 [facility] [address] [id number] [address] Dec, Back pain M54.9 [facility] [id number] [place] [address] [id number] Dec, [facility] [id number] [place] [address] [id number] Dec, [facility] [id number] [place] [address] 81070- 8408 Dec, [facility] [id number] [address]- 1879 Nov, [facility] [id number] [place] [address] 53609- 6156 Nov, Back pain M54.9 ; Anemia, unspecified type D64.9 and History of colon polyps Z86.010 [facility] [address]005[address]100[place] [address]- 8698 Nov, Back pain M54.9 [facility] [id number] [place] [address] [id number] October, Back pain M54.9 [facility] [address] [place] [address] October, Back pain M54.9 and Gastroesophageal reflux disease without esophagitis K21.9 [facility] [id number] [place] [id number] Sep, [facility] [id number] [address]- 1256 Sep, [facility] [id number] [place] [address] 42167- 0840 Sep, [facility] [id number] [place] [address] 58620- 8751 Sep, [facility] [id number] [place] [address] 09457- 5893 Sep, [facility] [id number] [place] [address] 68758- 4425 Sep, Seizure disorder G40.909 [facility] [id number] [place] [address] 36152- 5413 Sep, Back pain M54.9 [facility] [id number] [address]- 4599 Sep, [facility] [id number] [place] [address] 32157- 4506 Aug, Back pain M54.9 [facility] [id number] [address]- 2436 Aug, Seizure disorder G40.909 [facility] [id number] [place] [id number] Aug, [facility] [id number] [place] [id number] 16 Aug, 2016 Back pain M54.9 [facility] [address] [id number] [id number] Aug, Back pain M54.9 [facility] [id number] [place] [address] Aug, Back pain M54.9 [facility] [address] [place] [address] Jul, Weakness R53.1 [facility] [id number] [place] [address] 43857- 0597 Jul, Seizure disorder G40.909 [facility] [id number] [place] [address] 44350- 9584 Jul, [facility] [id number] [place] [address] 19593- 6763 Jul, Breast cancer screening Z12.39 [place] [address] 67616- 5729 Jul, [facility] [id number] [place] [address] 12825- 3817 Jul, [facility] [id number] [place] [address] 33661- 9639 Jul, [facility] [id number] [place] [address] 79162- 1092 Jul, Seizure disorder G40.909 ; Fatigue, unspecified type R53.83 ; Perennial allergic rhinitis, unspecified allergic rhinitis trigger J30.89 and Chronic kidney disease, unspecified stage N18.9 [facility] [id number] [place] [address] 72032- 9189 Jul, [facility] [id number] [place] [address] 18742- 5357 Jul, Seizure disorder G40.909 [facility] [id number] [place] [address] 56963- 3620 Jun, [facility] [id number] [place] [address] 38088- 4094 Jun, [facility] [address] [address] Jun, Perennial allergic rhinitis, unspecified allergic rhinitis trigger J30.89 [facility] [id number] [place] [address] [id number] Jun, [facility] [id number] [place] [address] 56598945- 9060 Jun, Seizure disorder G40.909 [facility] [id number] [place] [address] [id number] Jun, [facility] [id number] [place] [address] [id number] May, [facility] [id number] [place] [address] 31151- 1491 May, [facility] [id number] [place] [address] 53938- 8898 May, [facility] [id number] [place] [address] 45716- 8413 May, [facility] [id number] [place] [address] 11157- 7909 May, History of CVA with residual deficit I69.30 [facility] [id number] [place] [address] 81969- 4001 May, [facility] [id number] [place] [address] 71731- 6482 May, [facility] [id number] [place] [address] 70300- 8423 May, [facility] [id number] [place] [address] 93237- 5152 May, Seizure disorder G40.909 [facility] [id number] [place] [address] 56796- 3195 May, [facility] [address] [place] [address] May, Back pain M54.9 and Seizure disorder G40.909 [facility] [id number] [place] [address] 10525- 6649 Apr, [facility] [address] [id number] [address]- 5057 Apr, Back pain M54.9 [facility] [address] [id number] [address]- 0759 Mar, [employer] [address] [place] [address] Mar, Insomnia, unspecified type G47.00 [facility] [address] [facility] [id number] [address]- 7426 Mar, [facility] [id number] [place] [address] 36855- 5353 Feb, [facility] [id number] [place] [address] 33367- 8975 Feb, [facility] [id number] [place] [address] 47894- 0586 Feb, [facility] [address] [address]- 4384 Jan, [facility] [id number] [place] [address] 65981- 4761 Jan, [employer] [address] [place] [address] Jan, Seizure disorder G40.909 and Back pain M54.9 [facility] [address] [address]- 2269 Dec, [facility] [address] [facility] [id number] [place] [address]- 8627 Dec, [facility] [address] [address]- 5574 Dec, [facility] [id number] [address]- 6828 Nov, [facility] [address] [address]- 6506 Nov, [facility] [id number] [place] [address] 25608- 4714 Nov, Back pain M54.9 [facility] [id number] [place] [address] 67192- 0106 October, [facility] [id number] [place] [address] 62891- 3206 October, Back pain M54.9 [facility] [id number] [place] [address] 10092 2546 October, Seizure disorder G40.909 and B12 deficiency E53.8 [facility] [id number] [place] [address] 62497- 6786 Sep, History of CVA with residual deficit I69.30 [facility] [id number] [place] [address] 92525- 4443 Sep, [facility] [id number] [place] [address] 29763- 5311 Sep, [facility] [id number] [place] [address] 44143- 0192 Sep, Back pain M54.9 [facility] [id number] [place] [address] 97601- 4756 Sep, Seizure disorder G40.909 [facility] [id number] [place] [address] 82548 2546 Aug, Back pain M54.9 [facility] [id number] [place] [address] 08581- 9436 Aug, Seizure disorder G40.909 [facility] [id number] [place] [address] 96165 2546 16 Aug, 2015 Back pain M54.9 [facility] [id number] [place] [address] 75988 2546 14 Aug, 2015 Heart failure, unspecified I50.9 [facility] [id number] [place] [address] 15583- 9455 14 Aug, 2015 Medication monitoring encounter Z51.81 [facility] [address] 42930- 5512 15 Jul, 2015 [facility] [address] 52426- 4920 09 Jul, 2015 Seizure disorder G40.909 [facility] [address] 06228- 7149 05 Jul, 2015 Back pain M54.9 [facility] [address] 83210- 7000 Jun, [facility] [address] 19018- 1158 Jun, [facility] [address] 32122- 3584 Jun, Mental status change R41.82 ; History of CVA with residual deficit I69.30 ; Back pain M54.9 and Seizure disorder G40.909 [facility] [id number] [place] [address] 05000- 8705 Jun, [facility] [id number] [place] [address] 04222- 4211 May, [facility] [address] 52170- 0678 Apr, [facility] [id number] [place] [address] 28176- 3064 Apr, Medication monitoring encounter Z51.81 [facility] [address] 92235- 7680 Mar, Vomiting R11.10 [facility] [address] 60006- 7415 Mar, [facility] [address] [place] [address] 2546 Feb, [facility] [address] [id number] [place] [address]- 0713 Feb, UTI (urinary tract infection) 599.0 [facility] [address] [id number] [place] [address]- 7536 Jan, [facility] [address] [id number] [place] [address]- 3193 Jan, [facility] [address] [id number] [place] [address]- 9826 Jan, [facility] [address] [id number] [place] [address]- 3095 Dec, [facility] [address] [id number] [place] [address]- 5067 Dec, [facility] [address] [id number] [place] [address]- 7176 Dec, [facility] [address] [id number] [place] [address]- 1692 Dec, [facility] [address] [id number] [place] [address]- 0919 Nov, UNKNOWN Nov, [facility] [address] [id number] [place] [address]- 2546 October, [facility] [address] [id number] [place] [address]- 5391 Sep, [facility] [place] [facility] [address] [id number] [place] [address]- 0042 Sep, [facility] [place] [facility] [address] [id number] [place] [address]- 5954 Aug, [facility] [place] [facility] [address] [id number] [place] [address]- 7778 Aug, [facility] [place] [facility] [address] [id number] [place] [address] Jul, [facility] [place] [facility] [address] [id number] [place] [address] Jul, [facility] [place] [facility] [address] [id number] [place] [address] Jul, [facility] [place] [facility] [address] [id number] [place] [address] Jul, [facility] [place] [facility] [address] [id number] [place] [address] Jul, [facility] [place] [facility] [address] [id number] [place] [address] Jun, [facility] [place] [facility] [address] [id number] [place] [address] Jun, [facility] [place] [facility] [address] [id number] [place] [address] Jun, [facility] [place] [facility] [address] [id number] [place] [address] Jun, [facility] [place] [facility] [address] [id number] [place] [address] Jun, [facility] [place] [facility] [address] [id number] [place] [address] Jun, [facility] [place] [facility] [address] [id number] [place] [address] Jun, [facility] [place] [facility] [address] [id number] [place] [address] Jun, [facility] [place] [facility] [address] [id number] [place] [address] Jun, [facility] [place] [facility] [address] [id number] [place] [address] Jun, [facility] [place] [facility] [address] [id number] [place] [address] Jun, [facility] [place] [facility] [address] [id number] [place] [address] Jun, [facility] [place] [facility] [address] [id number] [place] [address] Jun, [facility] [place] [facility] [address] [id number] [place] [address] Jun, [facility] [place] [facility] [address] [id number] [place] [address] Jun, [facility] [place] [facility] [address] [id number] [place] [address] Jun, [facility] [place] [facility] [address] [id number] [place] [address] Jun, [facility] [place] [facility] [address] [id number] [place] [address]- [address] Jun, [facility] [place] [facility] [address] [id number] [place] [address] May, [facility] [place] [facility] [address] [id number] [place] [address] 30 May, 2014 [facility] [place] [facility] [address] [id number] [place] [address] 30 May, 2014 [facility] [place] [facility] [address] [id number] [place] [address] 30 May, 2014 [facility] [place] [facility] [address] [id number] [place] [address] 19 May, 2014 [facility] [place] [facility] [address] [id number] [place] [address] 16 May, 2014 [facility] [place] [facility] [address] [id number] [place] [address] 16 May, 2014 [facility] [place] [facility] [address] [id number] [place] [address] 15 May, 2014 [facility] [place] [facility] [address] [id number] [place] [address] May, [facility] [address] [facility] [place] [id number] May, [facility] [place] [facility] [address] [id number] [place] [address] May, [facility] [place] [facility] [address] [id number] [place] [address] May, [facility] [place] [facility] [address] [id number] [place] [address] May, [facility] [place] [facility] [address] [id number] [place] [address] Apr, [facility] [place] [facility] [address] [id number] [place] [address] Apr, [facility] [place] [facility] [address] [id number] [place] [address] Apr, [facility] [place] [facility] [address] [id number] [place] [address] Apr, [facility] [place] [facility] [address] [id number] [place] [address] Apr, [facility] [place] [facility] [address] [id number] [place] [address] Apr, [facility] [place] [facility] [address] [id number] [place] [address] Mar, [facility] [place] [facility] [address] [id number] [place] [address] Mar, [facility] [place] [facility] [address] [id number] [place] [address] Mar, [facility] [place] [facility] [address] [id number] [place] [address] 7847 Mar, [facility] [place] [facility] [address] [id number] [place] [address] Mar, [facility] [place] [facility] [address] [id number] [place] [address] Mar, [facility] [address] [id number] [place] [address]206 24 Feb, 2014 [facility] [place] [facility] [address] [id number] [place] [address]- 1306 24 Feb, 2014 [facility] [place] [facility] [address] [id number] [place] [address] 7031 Feb, [facility] [place] [facility] [address] [id number] [place] [address]- 0871 Feb, [facility] [place] [facility] [address] [id number] [place] [address] 7104 Feb, [facility] [place] [facility] [address] [id number] [place] [address]- 9103 Feb, [facility] [address] [id number] [place] [address] 9[address] Feb, [facility] [place] [facility] [address] [id number] [place] [address]- 7532 Feb, [facility] [address] [id number] [place] [address]- 8142 Feb, [facility] [place] [facility] [address] [id number] [place] [address]- 9374 Feb, [facility] [address] [place] [id number] Feb, [facility] [place] [facility] [address] [id number] [place] [address] 72[address] Feb, [facility] [place] [facility] [address] [id number] [place] [address] 1946 Jan, [facility] [place] [facility] [address] [id number] [place] [address]- 2527 Jan, [facility] [place] [facility] [address] [id number] [place] [address] 9479 Dec, [facility] [place] [facility] [address] [id number] [place] [address]- 8271 Dec, 2013 [facility] [place] [facility] [address] [id number] [place] [address]- 4739 Dec, 2013 [facility] [place] [facility] [address] [id number] [place] [address]- 5579 Dec, 2013 [facility] [place] [facility] [address] [id number] [place] [address]- 4351 Dec, 2013 [facility] [place] [facility] [address] [id number] [place] [address]- 1406 Dec, 2013 [facility] [place] [facility] [address] [id number] [place] [address]- 0964 Dec, [facility] [place] [facility] [address] [id number] [place] [address]- 1430 Dec, [facility] [place] [facility] [address] [id number] [place] [address]- 8468 Dec, [facility] [place] [facility] [address] [id number] [place] [address]- 1649 Dec, [facility] [place] [facility] [address] [id number] [place] [address]- 3468 Nov, [facility] [place] [facility] [address] [id number] [place] [address]- 5724 Nov, [facility] [place] [facility] [address] [id number] [place] [address]- 3754 Nov, [facility] [place] [facility] [address] [id number] [place] [address]- 1474 Nov, [facility] [place] [facility] [address] [id number] [place] [address]- 9765 Nov, [facility] [place] [facility] [address] [id number] [place] [address]- 4465 Nov, [facility] [place] [facility] [address] [id number] [place] [address]- 9719 Nov, [facility] [place] [facility] [address] [id number] [place] [address]- 3101 Nov, [facility] [place] [facility] [address] [id number] [place] [address]- 8136 Nov, [facility] [place] [facility] [address] [id number] [place] [address]- 6987 Nov, [facility] [place] [facility] [address] [id number] [place] [address]- 0164 Nov, [facility] [place] [facility] [address] [id number] [place] [address]- 8378 Nov, [facility] [place] [facility] [address] [id number] [place] [address]- 8911 Nov, [facility] [place] [facility] [address] [id number] [place] [address]- 9606 Nov, [facility] [place] [facility] [address] [id number] [place] [address]- 3609 October, [facility] [place] [facility] [address] [id number] [place] [address]- 7858 October, [facility] [place] [facility] [address] [id number] [place] [address] 1923 October, [facility] [place] [facility] [address] [id number] [place] [address]- 0094 October, [facility] [place] [facility] [address] [id number] [place] [address]- 6302 October, [facility] [place] [facility] [address] [id number] [place] [address]- 5830 October, [facility] [place] [facility] [address] [id number] [place] [address]- 1233 October, [facility] [place] [facility] [address] [id number] [place] [address] October, [facility] [place] [facility] [address] [id number] [place] [address]- 8677 October, [facility] [place] [facility] [address] [id number] [place] [address]- 6737 October, [facility] [place] [facility] [address] [id number] [place] [address]- 7408 Sep, [facility] [place] [facility] [address] [id number] [place] [address]- 0622 Sep, [facility] [place] [facility] [address] [id number] [place] [address]- 3907 Sep, [facility] [place] [facility] [address] [id number] [place] [address]- 6448 Sep, [facility] [place] [facility] [address] [id number] [place] [address]- 3813 Sep, [facility] [place] [facility] [address] [id number] [place] [address]- 2766 Sep, [facility] [place] [facility] [address] [id number] [place] [address]- 8983 Sep, [facility] [place] [facility] [address] [id number] [place] [address]- 6052 Sep, [facility] [place] [facility] [address] [id number] [place] [address]- 1105 Sep, [facility] [place] [facility] [address] [id number] [place] [address]- 2942 Sep, [facility] [place] [facility] [address] [id number] [place] [address]- 6621 Aug, [facility] [place] [facility] [address] [id number] [place] [address]- 4183 Aug, [facility] [place] [facility] [address] [id number] [place] [address]- 8657 Aug, [facility] [place] [facility] [address] [id number] [place] [address]- 2387 Aug, [facility] [place] [facility] [address] [id number] [place] [address]- 8543 06 Aug, 2013 [facility] [place] [facility] [address] [id number] [place] [address]- 7731 Aug, [facility] [place] [facility] [address] [id number] [place] [address]- 3855 Aug, [facility] [place] [facility] [address] [id number] [place] [address]- 0381 Aug, [facility] [place] [facility] [address] [id number] [place] [address]- 5949 Aug, [facility] [place] [facility] [address] [id number] [place] [address]- 6227 Jul, [facility] [place] [facility] [address] [facility] [id number] [place] [address]- 3839 Jul, [facility] [place] [facility] [address] [facility] [id number] [place] [address]- 2409 Jul, [facility] [place] [facility] [address] [id number] [place] [address]- 9714 Jul, [facility] [place] [facility] [address] [facility] [id number] [place] [address]- 7083 Jul, [facility] [place] [facility] [address] [facility] [id number] [place] [address]- 5831 Jul, [facility] [place] [facility] [address] [facility] [id number] [place] [address]- 3836 Jul, [facility] [place] [facility] [address] [id number] [place] [address]- 8564 Jul, [facility] [place] [facility] [address] [id number] [place] [address]- 4743 Jul, [facility] [place] [facility] [address] [facility] [id number] [place] [address]- 0636 Jul, [facility] [place] [facility] [address] [facility] [id number] [place] [address]- 9712 06 Jul, 2013 [facility] [place] [facility] [address] [id number] [place] [address]- 6299 06 Jul, 2013 [facility] [place] [facility] [address] [id number] [place] [address]146 Jul, [facility] [place] [facility] [address] [id number] [place] [address]- 7516 Jul, [facility] [place] [facility] [address] [id number] [place] [address]- 2263 Jul, [facility] [place] [facility] [address] [id number] [place] [address]- 2752 Jul, [facility] [place] [facility] [address] [id number] [place] [address]- 6682 Jun, [facility] [place] [facility] [address] [id number] [place] [address]- 9460 Jun, [facility] [place] [facility] [address] [id number] [place] [address]- 1597 Jun, [facility] [place] [facility] [address] [id number] [place] [address]- 3777 Jun, [facility] [place] [facility] [address] [id number] [place] [address]- 2213 Jun, [facility] [place] [facility] [address] [id number] [place] [address]- 5704 Jun, [facility] [place] [facility] [address] [id number] [place] [address]- 9668 May, [facility] [place] [facility] [address] [id number] [place] [address]- 2231 May, [facility] [place] [facility] [address] [id number] [place] [address]- 5665 May, [facility] [place] [facility] [address] [id number] [place] [address]- 4119 May, [facility] [place] [facility] [address] [id number] [place] [address]- 1665 Apr, [facility] [place] [facility] [address] [id number] [place] [address]- 7552 Apr, [facility] [place] [facility] [address] [id number] [place] [address]- 5935 Apr, [facility] [place] [facility] [address] [id number] [place] [address]- 4356 Apr, [facility] [place] [facility] [address] [id number] [place] [address]- 6758 Apr, [facility] [place] [facility] [address] [id number] [place] [address]- 0836 Apr, [facility] [place] [facility] [address] [id number] [place] [address]- 6365 Apr, [facility] [place] [facility] [address] [id number] [place] [address]- 6890 Apr, [facility] [place] [facility] [address] [id number] [place] [address]- 2455 Apr, [facility] [place] [facility] [address] [id number] [place] [address]- 1493 Apr, [facility] [place] [facility] [address] [id number] [place] [address]- 5862 Apr, [facility] [place] [facility] [address] [id number] [place] [address]- 6702 Apr, [facility] [place] [facility] [address] [id number] [place] [address]- 9339 Mar, [facility] [place] [facility] [address] [id number] [place] [address]- 7119 28 Mar, 2013 [facility] [place] [facility] [address] [id number] [place] [address]- 2485 16 Mar, 2013 [facility] [place] [facility] [address] [id number] [place] [address]- 2722 16 Mar, 2013 [facility] [place] [facility] [address] [id number] [place] [address]- 0481 15 Mar, 2013 [facility] [place] [facility] [address] [id number] [place] [address]- 4595 15 Mar, 2013 [facility] [place] [facility] [address] [id number] [place] [address]- 4846 27 Feb, 2013 [facility] [place] [facility] [address] [id number] [place] [address] 254 25 Feb, 2013 [facility] [place] [facility] [address] [id number] [place] [address]- 9260 25 Feb, 2013 [facility] [place] [facility] [address] [id number] [place] [address]- 2335 23 Feb, 2013 [facility] [place] [facility] [address] [id number] [place] [address]- 2479 17 Feb, 2013 [facility] [place] [facility] [address] [id number] [place] [address]- 9035 10 Feb, 2013 [facility] [place] [facility] [address] [id number] [place] [address]- 0958 04 Feb, 2013 [facility] [place] [facility] [address] [id number] [place] [address]- 3157 30 Jan, 2013 [facility] [place] [facility] [address] [id number] [place] [address]- 6546 Jan, [facility] [place] [facility] [address] [id number] [place] [address]- 3497 Jan, [facility] [place] [facility] [address] [id number] [place] [address]- 1499 14 Jan, 2013 [facility] [place] [facility] [address] [id number] [place] [address]- 9792 Jan, [facility] [place] [facility] [address] [id number] [place] [address]- 7948 Jan, [facility] [place] [facility] [address] [id number] [place] [address]- 2546 Jan, [facility] [address] [id number] [place] [address]- 7348 Dec, [facility] [place] [facility] [address] [id number] [place] [address]- 2546 Dec, [facility] [address] [id number] [place] [address]- 4966 Dec, [facility] [address] [id number] [place] [address]- 2542 Dec, [facility] [address] [id number] [place] [address]- 6666 Dec, [facility] [address] [id number] [place] [address]- 7186 Dec, [facility] [address] [id number] [place] [address]- 8638 Nov, [facility] [address] [id number] [place] [address]- 0866 Nov, [facility] [address] [id number] [place] [address]- 8596 Nov, [facility] [address] [id number] [place] [address]- 1369 Nov, [facility] [place] [facility] [address] [id number] [place] [address]- 8746 October, [facility] [address] [id number] [place] [address]- 4506 October, [facility] [place] [facility] [address] [id number] [place] [address]- 2546 October, [facility] [place] [facility] [address] [id number] [place] [address]- 2546 October, [facility] [place] [facility] [address] [id number] [place] [address]- 4514 Sep, [facility] [address] [id number] [place] [address]- 1118 Sep, [facility] [place] [facility] [address] [id number] [place] [address]- 5170 16 Sep, 2012 [facility] [place] [facility] [address] [id number] [place] [address]- 5143 Sep, [facility] [place] [facility] [address] [id number] [place] [address]- 4129 Sep, [facility] [place] [facility] [address] [id number] [place] [address]- 6110 Sep, [facility] [place] [facility] [address] [id number] [place] [address]- 6173 Sep, [facility] [place] [facility] [address] [id number] [place] [address]- 5805 Sep, [facility] [place] [facility] [address] [id number] [place] [address]- 7413 Aug, [facility] [place] [facility] [address] [id number] [place] [address]- 3495 Aug, [facility] [place] [facility] [address] [id number] [place] [address]- 9656 Aug, [facility] [place] [facility] [address] [id number] [place] [address]- 9342 18 Jul, 2012 [facility] [place] [facility] [address] [id number] [place] [address]- 1229 08 Jul, 2012 [facility] [place] [facility] [address] [id number] [place] [address]- 7013 07 Jul, 2012 [facility] [place] [facility] [address] [id number] [place] [address]- 7615 06 Jul, 2012 [facility] [place] [facility] [address] [id number] [place] [address]- 7657 05 Jul, 2012 [facility] [place] [facility] [address] [id number] [place] [address]- 6441 Jun, [facility] [address] [id number] [place] [address]- 2344 Jun, [facility] [address] [id number] [place] [address]- 3357 Jun, [facility] [address] [id number] [place] [address]- 9522 May, [facility] [address] [id number] [place] [address]- 7108 May, [facility] [address] [id number] [place] [address]- 9912 May, [facility] [address] [id number] [place] [address]- 6610 May, [facility] [address] [id number] [place] [address]- 0230 May, [facility] [address] [id number] [place] [address]- 8250 May, [facility] [address] [id number] [place] [address]- 4205 May, [facility] [address] [id number] [place] [address]- 7988 Apr, [facility] [address] [id number] [place] [address]- 5231 Apr, [facility] [address] [id number] [place] [address]- 4743 Apr, [facility] [place] [facility] [address] [id number] [place] [address]- 1713 Apr, [facility] [place] [facility] [address] [id number] [place] [address]- 9814 Apr, [facility] [address] [id number] [place] [address]- 5568 Apr, [facility] [place] [facility] [address] [id number] [place] [address]- 0563 Apr, [facility] [place] [facility] [address] [id number] [place] [address]- 2053 Apr, [facility] [place] [facility] [address] [id number] [place] [address]- 1326 Apr, [facility] [place] [facility] [address] [id number] [place] [address]- 1348 Apr, [facility] [place] [facility] [address] [id number] [place] [address]- 8131 Apr, [facility] [place] [facility] [address] [id number] [place] [address]- 4904 Mar, [facility] [place] [facility] [address] [facility] [id number] [place] [address]- 0126 Mar, [facility] [place] [facility] [address] [id number] [place] [address]- 4370 Mar, [facility] [place] [facility] [address] [id number] [place] [address]- 0231 Mar, [facility] [place] [facility] [address] [facility] [id number] [place] [address]- 8762 Mar, [facility] [place] [facility] [address] [facility] [id number] [place] [address]- 4427 Mar, [facility] [place] [facility] [address] [id number] [place] [address]- 2961 Mar, [facility] [place] [facility] [address] [id number] [place] [address]- [address] Mar, [facility] [place] [facility] [address] [id number] [place] [address] Mar, [facility] [place] [facility] [address] [facility] [id number] [place] [address] Mar, [facility] [place] [facility] [address] [id number] [place] [address] 04 Mar, 2012 [facility] [place] [facility] [address] [id number] [place] [address] 2011 [facility] [place] [facility] [address] [id number] [place] [address]46 27 Feb, 2011 [facility] [place] [facility] [address] [id number] [place] [address] 27 Feb, 2011 [facility] [place] [facility] [address] [id number] [place] [address] 2541 26 Feb, 2011 [facility] [place] [facility] [address] [id number] [place] [address] 24 Feb, 2012 [facility] [place] [facility] [address] [id number] [place] [address] 19 Feb, 2012 [facility] [place] [facility] [address] [id number] [place] [address] 18 Feb, 2012 [facility] [place] [facility] [address] [id number] [place] [address] 18 Feb, 2012 [facility] [place] [facility] [address] [id number] [place] [address] 14[address] 18 Feb, 2012 [facility] [place] [facility] [address] [id number] [place] [address] Jan, [facility] [place] [facility] [address] [id number] [place] [address] Jan, [facility] [place] [facility] [address] [id number] [place] [address] Jan, [facility] [place] [facility] [address] [id number] [place] [address] Jan, [facility] [place] [facility] [address] [facility] [id number] [place] [address] Dec, [facility] [place] [facility] [address] [facility] [id number] [place] [address] Dec, [facility] [place] [facility] [address] [id number] [place] [address] Dec, [facility] [place] [facility] [address] [id number] [place] [address] Dec, [facility] [place] [facility] [address] [id number] [place] [address] Dec, [facility] [place] [facility] [address] [id number] [place] [address]- [address] Dec, [facility] [place] [facility] [address] [id number] [place] [address]- [address] Dec, [facility] [place] [facility] [address] [id number] [place] [address] Dec, [facility] [place] [facility] [address] [id number] [place] [address]- [address] Dec, [facility] [place] [facility] [address] [id number] [place] [address]99 Dec, [facility] [place] [facility] [address] [id number] [place] [address]- [address] Dec, [facility] [place] [facility] [address] [id number] [place] [address] Dec, [facility] [place] [facility] [address] [id number] [place] [address]- 67[address] Dec, [facility] [place] [facility] [address] [id number] [place] [address]- 1568 Dec, [facility] [place] [facility] [address] [id number] [place] [address] Nov, [facility] [place] [facility] [address] [id number] [place] [address]- [address] Nov, [facility] [place] [facility] [address] [id number] [place] [address]- 69[address] Nov, [facility] [place] [facility] [address] [id number] [place] [address]- [address] Nov, [facility] [address] [id number] [place] [address]- [address] Nov, [facility] [place] [facility] [address] [id number] [place] [address] 2786 Nov, [facility] [place] [facility] [address] [id number] [place] [address] October, [facility] [place] [facility] [address] [id number] [place] [address] October, [facility] [place] [facility] [address] [id number] [place] [address]- [address] October, [facility] [place] [facility] [address] [id number] [place] [address]- [address] October, [facility] [place] [facility] [address] [id number] [place] [address]- [address] Sep, [facility] [place] [facility] [address] [id number] [place] [address]- 1846 17 Sep, 2011 [facility] [place] [facility] [address] [id number] [place] [address]- [address] 13 Sep, 2011 [facility] [place] [facility] [address] [id number] [place] [address]- [address] Sep, [facility] [place] [facility] [address] [id number] [place] [address]- 9377 Sep, [facility] [place] [facility] [address] [id number] [place] [address] Aug, [facility] [place] [facility] [address] [id number] [place] [address]- 6[address] Aug, [facility] [place] [facility] [address] [id number] [place] [address]- 5265 Aug, [facility] [place] [facility] [address] [id number] [place] [address]- 7069 Aug, [facility] [place] [facility] [address] [facility] [id number] [place] [address] 13 Aug, 2011 [facility] [address] [facility] [id number] [place] [address]- [address] Aug, [facility] [address] [facility] [id number] [place] [address]- [address] Aug, [facility] [address] [facility] [id number] [place] [address]- [address] 16 Jul, 2011 [facility] [address] [facility] [id number] [place] [address]- [address]22 Jul, [facility] [address] [facility] [id number] [place] [address]- [address]87 Jul, [facility] [address] [id number] [address] Jul, [facility] [id number] [address] Jun, [facility] [address] [place] [id number] Jun, [facility] [id number] [place] [address]- [address] Jun, [facility] [id number] [address]- [address] Jun, [facility] [address] [id number] [place] [address]- [address]773 Jun, [facility] [address] [facility] [id number] [place] [address]- [address] Jun, [facility] [address] [id number] [place] [address]- 7314 Jun, [facility] [address] [facility] [id number] [place] [address]- [address] Jun, [facility] [address] [id number] [place] [address]- [address]885 May, [facility] [place] [facility] [address] [id number] [place] [address]- 8697 29 May, 2011 [facility] [place] [facility] [address] [id number] [place] [address]- 2772 May, [facility] [place] [facility] [address] [id number] [place] [address] May, [facility] [place] [facility] [address] [id number] [place] [address] May, [facility] [place] [facility] [address] [id number] [place] [address] May, [facility] [place] [facility] [address] [id number] [place] [address] May, [facility] [place] [facility] [address] [id number] [place] [address] Apr, [facility] [place] [facility] [address] [id number] [place] [address] Apr, [facility] [place] [facility] [address] [id number] [place] [address] Apr, [facility] [place] [facility] [address] [id number] [place] [address] Mar, [facility] [place] [facility] [address] [id number] [place] [address] 20 Mar, 2011 [facility] [place] [facility] [address] [id number] [place] [address] 14 Mar, 2011 [facility] [place] [facility] [address] [id number] [place] [address] 11 Mar, 2011 [facility] [place] [facility] [address] [id number] [place] [address] 10 Mar, 2011 [facility] [place] [facility] [address] [id number] [place] [address] 10 Mar, 2011 [facility] [place] [facility] [address] [id number] [place] [address] 10 Mar, 2011 [facility] [place] [facility] [address] [id number] [place] [address] 11 Jan, 2011 [facility] [place] [facility] [address] [id number] [place] [address] 27 May, 2010 [facility] [place] [facility] [address] [id number] [place] [address] 21 May, 2010 [facility] [place] [facility] [address] [id number] [place] [address] 13 May, 2010 [facility] [place] [facility] [address] [id number] [place] [address] 13 May, 2010 [facility] [place] [facility] [address] [id number] [place] [address] 10 May, 2010 [facility] [place] [facility] [address] [id number] [place] [address] 06 May, 2010 [facility] [place] [facility] [address] [id number] [place] [address] 29 Apr, 2010 [facility] [place] [facility] [address] [id number] [place] [address] 26 Apr, 2010 [facility] [place] [facility] [address] [id number] [place] [address] 19 Apr, 2010 [facility] [place] [facility] [address] [id number] [address] 18 Apr, 2010 [facility] [place] [facility] [address] [id number] [address] 15 Apr, 2010 [facility] [place] [facility] [address] [id number] [place] [address] 12 Apr, 2010 [facility] [place] [facility] [address] [id number] [address] 12 Apr, 2010 [facility] [place] [facility] [address] [id number] [address] 05 Apr, 2010 [facility] [place] [facility] [address] [id number] [address] Apr, [facility] [id number] [address] Apr, [facility] [address] [id number] [address] Mar, [facility] [id number] [address] Mar, [facility] [id number] [address] Mar, [facility] [id number] [place] [address] Mar, [facility] [id number] [address] Mar, [facility] [id number] [address] Dec, [facility] [address] [id number] [address] Nov, IMMUNIZATIONS No Known Immunizations SOCIAL HISTORY Never Assessed REASON FOR VISIT Controlled Med Refill PLAN OF CARE VITAL SIGNS MEDICATIONS Medication Instructions Dosage Frequency Start Date End Date Duration Status Fentanyl 75 MCG/HR Transdermal every 72 hours 1 patch to skin Mar, 30 days Active RESULTS No Results PROCEDURES [...] surgery and skin graft, cholecysectomy Hospitalization History [facility] [place] [facility] 12/2016 Hospitalization History [facility] 08/2017
--- NOTE | 2018-02-04 13:35 | ED Neurological Problem ---
General Stated Complaint: UNRESPONSIVE Source: patient, EMS Exam Limitations: clinical condition History of Present Illness Date Seen by Provider: Feb 04, 2018 Time Seen by Provider: 13:01 Initial Comments Here by EMS with report of altered mental status. Apparently she is noted to be well this morning but when they went back at lunch time to get her she was slumped over in her wheelchair and not responsive. No report of fever or vomiting. Patient was noted to be bradycardic by EMS. IV was initiated. They did give Narcan and patient's bradycardia resolved and she is a little bit more responsive but this waned some later. On arrival she was semi-responsive and shaking intermittently. Does not seem to be having respiratory distress though. Patient unable to answer questions. Timing/Duration: 1-3 hours, unknown (exact onset) Severity: moderate, severe Associated Symptoms: muscle spasms, other (mental status changes) Allergies and Home Medications Allergies Coded Allergies: Fish Containing Products (Unverified Allergy, Unknown, 09/19/17) FROM UNCODED ALLERGIES Penicillins (Verified Allergy, Unknown, 03/18/06) Sulfa (Sulfonamide Antibiotics) (Verified Allergy, Unknown, 03/18/06) acetaminophen (Verified Allergy, Unknown, 03/18/06) amitriptyline (Verified Allergy, Unknown, 03/18/06) aspirin (Verified Allergy, Unknown, 03/18/06) caramiphen (Verified Allergy, Unknown, 03/18/06) carbamazepine (Verified Allergy, Unknown, 03/18/06) clarithromycin (Verified Allergy, Unknown, 03/18/06) codeine (Verified Allergy, Unknown, 03/18/06) coffee (Coffea arabica) (Unverified Allergy, Unknown, 09/19/17) FROM UNCODED ALLERGIES diazepam (Verified Allergy, Unknown, 03/18/06) diphenhydramine (Verified Allergy, Unknown, 03/18/06) doxycycline (Verified Allergy, Unknown, 03/18/06) egg (Verified Allergy, Unknown, 03/18/06) fish oil (Verified Allergy, Unknown, 03/18/06) flavoxate (Verified Allergy, Unknown, 03/18/06) hydrocodone (Verified Allergy, Unknown, 03/18/06) hydroxyzine (Verified Allergy, Unknown, 03/18/06) hyoscyamine (Verified Allergy, Unknown, 03/18/06) imipramine (Verified Allergy, Unknown, 03/18/06) levofloxacin (Verified Allergy, Unknown, 03/18/06) liver extract (Verified Allergy, Unknown, 03/18/06) lorazepam (Verified Allergy, Unknown, 03/18/06) milk (Verified Allergy, Unknown, 03/18/06) nitrofurantoin (Verified Allergy, Unknown, 03/18/06) oxybutynin (Verified Allergy, Unknown, 03/18/06) pentazocine (Verified Allergy, Unknown, 03/18/06) phenazopyridine (Verified Allergy, Unknown, 03/18/06) phenylpropanolamine (Verified Allergy, Unknown, 03/18/06) procaine (Verified Allergy, Unknown, 03/18/06) promethazine (Verified Allergy, Unknown, 03/18/06) propoxyphene (Verified Allergy, Unknown, 03/18/06) pseudoephedrine (Verified Allergy, Unknown, 03/18/06) spinach (Unverified Allergy, Unknown, 09/19/17) FROM UNCODED ALLERGIES tetracycline (Verified Allergy, Unknown, 03/18/06) tramadol (Verified Allergy, Unknown, 03/18/06) zinc acetate (Verified Allergy, Unknown, 03/18/06) Uncoded Allergies: ANITHISTAMINES (Allergy, Unknown, 03/18/06) Home Medications Acetaminophen 650 Mg Cplt, 650 MG PO Q4H PRN for PAIN, (Reported) Atorvastatin Calcium 40 Mg Tablet, 40 MG PO HS, (Reported) Bisacodyl 10 Mg Supp.rect, 10 MG RC DAILY PRN, (Reported) Butalb/Acetaminophen/Caffeine 1 Each Capsule, 1 EACH PO Q6H PRN for HEADACHE, ( Reported) Carboxymethylcellulose Sodium 15 Ml Drops, 1 DROP OU QIDACHS, (Reported) Carboxymethylcellulose Sodium 15 Ml Drp.lq.gel, 1 DROP OU Q4H PRN for SEASONAL ALLERGIES, (Reported) Cephalexin 500 Mg Tablet, 500 MG PO BID Prescribed by: JIMMY SPAULDING on 09/19/17 1034 Cholecalciferol (Vitamin D3) 5,000 Unit Capsule, 5,000 UNIT PO BID, (Reported) EVERY 7 DAYS Citalopram Hydrobromide 10 Mg Tablet, 10 MG PO DAILY, (Reported) Clorazepate Dipotassium 3.75 Mg Tablet, 3.75 MG PO BID, (Reported) Cyanocobalamin 1,000 Mcg/Ml Inj, 1,000 MCG IJ Q 14 DAYS, (Reported) Cyclosporine 1 Each Droperette, 1 EACH OP BID, (Reported) Fentanyl 1 Ea Patch, 75 MCG TD Q72H, (Reported) Fexofenadine HCl 180 Mg Tablet, 180 MG PO DAILY, (Reported) Fluticasone Propionate 9.9 Ml [place].susp, 1 SPRAY NSEACH BID, (Reported) Folic Acid 1 Mg Tablet, 1 MG PO DAILY, (Reported) Gabapentin 400 Mg Capsule, 400 MG PO HS, (Reported) PAIN IN JOINTS Guaifenesin 100 Mg/5 Ml Liquid, 10 ML PO Q6H PRN for COUGH, (Reported) Hydrocortisone/Pramoxine 30 Gm Cream.appl, 30 GM RC PRN, (Reported) Ibuprofen 400 Mg Tablet, 400 MG PO Q6H PRN for PAIN, (Reported) Lamotrigine 100 Mg Tablet, 100 MG PO BID, (Reported) Melatonin 5 Mg Tab.ir.er, 5 MG PO HS, (Reported) Metoprolol Tartrate 25 Mg Tablet, 25 MG PO BID, (Reported) Nitroglycerin 0.2 Mg/Patch Patch, 0.2 MG TD DAILY, (Reported) Omeprazole 20 Mg Tablet.dr, 20 MG PO DAILY, (Reported) Ondansetron HCl 4 Mg Tab, 4 MG PO Q8H PRN for NAUSEA/VOMITING-1ST LINE Prescribed by: JIMMY SPAULDING on 09/19/17 1017 Phenytoin 50 Mg Tab.chew, 50 MG PO BID Prescribed by: JIMMY SPAULDING on 09/19/17 1034 Phenytoin Sodium Extended 100 Mg Capsule, 100 MG PO BID Prescribed by: JIMMY SPAULDING on 09/19/17 1034 Polyethylene Glycol 119 Gm Btl, 17 GM PO BID, (Reported) Sodium Bicarbonate 650 Mg Tablet, 650 MG PO DAILY, (Reported) Topiramate 100 Mg Tab, 100 MG PO BID, (Reported) Warfarin Sodium 1 Mg Tablet, 0 PO UD Alternate 2 mg and 1.5 mg every other day Prescribed by: JIMMY SPAULDING on 09/19/17 1104 Patient Home Medication List Home Medication List Reviewed: Yes Review of Systems Constitutional: see HPI; No fever Respiratory: No short of breath Gastrointestinal: No vomiting Unable to complete review of systems due to altered mental status. Limited review per staff Past Viafsxe-Wibpiy-Yfkzqz Hx Past Med/Social Hx: Reviewed Nursing Past Med/Soc Hx Patient Social History Smoking Status: Never a Smoker Recent Hopitalizations: No Immunizations Up To Date Tetanus Booster (TDap): More than 5yrs Date of Pneumonia Vaccine: May 02, 2017 Date of Influenza Vaccine: Apr 02, 2017 Seasonal Allergies Seasonal Allergies: Yes Past Medical History Surgeries: Yes (ABD, REMOVAL OF BLOOD CLOT ON BRAIN, SINUS, D&C, HERNIA, PORTS , UROSTOMY) Abdominal, Appendectomy, Bladder Surgery, Gallbladder, Hysterectomy, Orthopedic Respiratory: Yes Pneumonia Cardiac: Yes (MITRAL VALVE, Scaring on Aortic Valve Secondary to Rhuematic Fever, HF) Coronary Artery Disease, Deep Vein Thrombosis, High Cholesterol, Hypertension, Rheumatic Fever, Valvular Heart Disease Neurological: Yes (BLOOD CLOT ON BRAIN REMOVED, LEFT SIDED WEAKNESS) Seizure Disorder, Stroke Reproductive Disorders: No Female Reproductive Disorders: Denies Sexually Transmitted Disease: No HIV/AIDS: No Bladder Infection Gastrointestinal: Yes Gastroesophageal Reflux, Chronic Constipation Musculoskeletal: Yes (WEAKNESS LEFT SIDE DUE TO STROKE/OA/OSTEOPOROSIS, R LEG FX,R KNEE SURGERY) Osteoporosis, Arthritis, Fractures Endocrine: No Cataract Loss of Vision: Bilateral Hearing Impairment: Denies Cancer: Yes Bladder Psychosocial: Yes Anxiety Integumentary: No 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 1.9oz. 51.373682md; 21.4 BMI Method:Stated General Appearance: mild distress, thin HEENT: PERRL/EOMI, pharynx normal Neck: full range of motion, supple Respiratory: lungs clear, normal breath sounds Cardiovascular: regular rate, rhythm, no murmur Peripheral Pulses: 2+ Dorsalis Pedis (R), 2+ Left Dors-Pedis (L), 2+ Radial Pulses (R), 2+ Radial Pulses (L) Gastrointestinal: non tender, soft, other (diverting urostomy to the right lower quadrant) Extremities: non-tender, normal inspection Neurologic/Psychiatric: other (pizzas closed and does intermittently move all 4 extremities. Does have occasional shaking type movements. These are short lived in the one to 2 second range.) Crainal Nerves: other (unable to determine) Motor/Sensory: other (unable to determine) Skin: normal color, warm/dry Focused Exam Lactate Level 02/04/18 13:45: Lactic Acid Level 0.76 Lactic Acid Level Laboratory Tests Test 02/04/18 13:45 Lactic Acid Level 0.76 MMOL/L (0.50-2.00) Progress/Results/Core Measures Results/Orders Lab Results Laboratory Tests Test 02/04/18 13:25 02/04/18 13:45 Range/Units Urine Color YELLOW Urine Clarity CLEAR Urine pH 8 5-9 Urine Specific [place] 1.010 L 1.016-1.022 Urine Protein 2+ H NEGATIVE Urine Glucose (UA) NEGATIVE NEGATIVE Urine Ketones NEGATIVE NEGATIVE Urine Nitrite POSITIVE H NEGATIVE Urine Bilirubin NEGATIVE NEGATIVE Urine Urobilinogen NORMAL NORMAL MG/DL Urine Leukocyte Esterase 2+ H NEGATIVE Urine RBC (Auto) 1+ H NEGATIVE Urine RBC RARE /HPF Urine WBC 5-10 H /HPF Urine Crystals PRESENT H /LPF Urine Triple Phosphate Crystals LARGE H /LPF Urine Amorphous Sediment MOD TOMMY PHOSPHATE H /LPF Urine Bacteria FEW H /HPF Urine Casts NONE /LPF Urine Mucus NEGATIVE /LPF Urine Culture Indicated YES White Blood Count 4.9 4.3-11.0 10^3/uL Red Blood Count 3.82 L 4.35-5.85 10^6/uL Hemoglobin 12.0 11.5-16.0 G/DL Hematocrit 36 35-52 % Mean Corpuscular Volume 95 80-99 FL Mean Corpuscular Hemoglobin 31 25-34 PG Mean Corpuscular Hemoglobin Concent 33 32-36 G/DL Red Cell Distribution Width 14.2 10.0-14.5 % Platelet Count 175 130-400 10^3/uL Mean Platelet Volume 10.6 H 7.4-10.4 FL Neutrophils (%) (Auto) 65 42-75 % Lymphocytes (%) (Auto) 22 12-44 % Monocytes (%) (Auto) 11 0-12 % Eosinophils (%) (Auto) 2 0-10 % Basophils (%) (Auto) 0 0-10 % Neutrophils # (Auto) 3.2 1.8-7.8 X 10^3 Lymphocytes # (Auto) 1.1 1.0-4.0 X 10^3 Monocytes # (Auto) 0.5 0.0-1.0 X 10^3 Eosinophils # (Auto) 0.1 0.0-0.3 10^3/uL Basophils # (Auto) 0.0 0.0-0.1 10^3/uL Prothrombin Time 15.8 H 12.2-14.7 SEC INR Comment 1.3 0.8-1.4 Activated Partial Thromboplast Time 29 24-35 SEC D-Dimer 0.39 0.00-0.49 UG/ML Sodium Level 134 L 135-145 MMOL/L Potassium Level 3.6 3.6-5.0 MMOL/L Chloride Level 105 98-107 MMOL/L Carbon Dioxide Level 22 21-32 MMOL/L Anion Gap 7 5-14 MMOL/L Blood Urea Nitrogen 14 7-18 MG/DL Creatinine 0.84 0.60-1.30 MG/DL Estimat Glomerular Filtration Rate > 60 BUN/Creatinine Ratio 17 Glucose Level 113 H 70-105 MG/DL Lactic Acid Level 0.76 0.50-2.00 MMOL/L Calcium Level 9.5 8.5-10.1 MG/DL Corrected Calcium 9.3 8.5-10.1 MG/DL Total Bilirubin 0.4 0.1-1.0 MG/DL Aspartate Amino Transf (AST/SGOT) 18 5-34 U/L Alanine Aminotransferase (ALT/SGPT) 15 0-55 U/L Alkaline Phosphatase 112 40-136 U/L Troponin I < 0.30 <0.30 NG/ML Total Protein 7.7 6.4-8.2 GM/DL Albumin 4.2 3.2-4.5 GM/DL My Orders Orders - SIL SINGLETARY MD Cbc With Automated Diff (02/04/18 13:14) Comprehensive Metabolic Panel (02/04/18 13:14) Blood Culture (02/04/18 13:14) Sputum Culture (02/04/18 13:14) Urinalysis (02/04/18 13:14) Urine Culture (02/04/18 13:14) Protime With Inr (02/04/18 13:14) Partial Thromboplastin Time (02/04/18 13:14) Chest 1 View, Ap/Pa Only (02/04/18 13:14) Saline Lock/Iv-Start (02/04/18 13:14) Vital Signs Adult Sepsis Patie Q15M (02/04/18 13:14) O2 (02/04/18 13:14) Remove Rings In Anticipation O (02/04/18 13:14) Lactic Acid Analyzer (02/04/18 13:14) Fibrin Degradation Products (02/04/18 13:14) Troponin I (02/04/18 13:14) Catheter(Urinary) Insert & Ass 03,15 (02/04/18 13:14) Nothing By Mouth (02/04/18 Dinner) Vital Signs Stroke Patient Q15M (02/04/18 13:14) Ct Head Wo-R/O Stroke (02/04/18 13:14) Intake & Output 06,14,22 (02/04/18 13:14) Monitor-Rhythm Ecg Trace Only (02/04/18 13:14) Dysphagia Screening Tool (02/04/18 13:14) Ekg Tracing (02/04/18 13:33) Ceftriaxone Injection (Rocephin Injectio (02/04/18 15:15) Vital Signs/I&O 02/04/18 13:01 Temp 96.6 Pulse 58 Resp 12 B/P (MAP) 175/96 (122) Pulse Ox 97 O2 Delivery Room Air Progress Progress Note : Progress Note Seen and evaluated. IV established by EMS but was lost. Port access initiated to the right upper chest. Labs, UA, blood cultures and lactic acid ordered. Normal saline [address] head ordered due to concerns for stroke. Patient had mixture of stroke and sepsis protocols initiated. Monitor patient. 1433 Coulon was able to finally get EKG also shows heart rate patient to hold still for that. 1530: We will give Rocephin 1 g IV which is been ordered. Patient does have what appears to be urinary tract infection. I did discuss the case with Dr. Spaulding and she accepts patient for admission, observation status due to her current altered mental status and need for antibiotics. 1535 : Guardian had talked to the senior care who reported that the patient is removing her urostomy bag and putting her fingers in the urine or stoma and blaming it on staff. This may be a cause of the urinary tract infection. Cultures pending. To be admitted to the floor. Initial ECG Impression Date: Feb 04, 2018 Initial ECG Impression Time: 13:59 Initial ECG Rate: 65 Initial ECG Rhythm: Normal Sinus Initial ECG Impression: Normal Comment Sinus rhythm with normal axis. No evidence of ST elevation MS. Unchanged from previous of 16 December 2013. Interpreted by me. Diagnostic Imaging Diagonstic Imaging: CT Plain Films/CT/US/NM/MRI: head Comments NAME: ALEKSEY GARZA MED REC#: [id number] PT STATUS: REG ER : 1950 PHYSICIAN: SIL SINGLETARY MD ADMIT DATE: 02/04/18/ER Signed Date of Exam: 02/04/18 CT HEAD WO-R/O STROKE INDICATION: Unresponsive. Comparison made with prior examination 09/19/2017. FINDINGS: There are previous postsurgical changes of a left craniotomy. There is prominence of ventricles and sulci. There is no hydrocephalus or midline shift. There is no intracranial mass, hemorrhage or extra-axial fluid collection. There is some chronic microvascular ischemic disease. Sinuses and mastoid air cells are clear. IMPRESSION: Atrophy and some chronic microvascular ischemic disease, however, no acute intracranial abnormality. Dictated by: Dictated on workstation # [id number] Dict: 02/04/18 1402 Trans: 02/04/18 1410 Interpreted by: NICK ROSE MD Electronically signed by: NICK ROSE MD 02/04/18 1410 Diagonstic Imaging: Xray Plain Films/CT/US/NM/MRI: chest Comments [facility] [place], [place] NAME: ALEKSEY GARZA MED REC#: [id number] PT STATUS: REG ER : 1950 PHYSICIAN: SIL SINGLETARY MD ADMIT DATE: 02/04/18/ER Draft Date of Exam:02/04/18 CHEST 1 VIEW, AP/PA ONLY Indication: Possible stroke. Frontal chest obtained at 1:42 hours p.m. compared to 09/19/2017 There is cardiomegaly with central vascular congestion and mild interstitial edema. There is no overt consolidation or pneumothorax or pleural fluid. Port-A-Cath is seen in the right chest unchanged from the prior study. Impression: Cardiomegaly with central vascular congestion with some interstitial edema. No pleural fluid or overt consolidation. Dictated on workstation # [id number] Dict: 02/04/18 1355 Trans: 02/04/18 1358 [id number] [id number] Interpreted by: NICK COSBY MD Electronically signed by: Departure Communication (Admissions) Time/Spoke to Admitting Phy: 15:30 Impression Primary Impression: UTI (urinary tract infection) Qualified Codes: N30.00 - Acute cystitis without hematuria Additional Impression: Altered mental status Qualified Codes: R41.82 - Altered mental status, unspecified Disposition: ADMITTED INPATIENT Condition: Stable Admissions Decision to Admit Reason: Admit from ER (General) Decision to Admit/Date: Feb 04, 2018 Time/Decision to Admit Time: 15:30 Departure-Patient Inst. Referrals: NAHOMY BETH MD (PCP/Family) Primary Care Physician SIL SINGLETARY MD Feb 04, 2018 13:35
--- OUTSIDE RECORDS SUMMARY | 2018-02-04 13:35 | XMS REPORT ---
Author Author KATHYCRICKETA [facility] Address [address] [place] [address] Care Team Providers Care Sales And Marketing Director Name Role Phone ESTRELLITACRICKET ADANA Unavailable PROBLEMS Type Condition ICD9-CM Code WFD24-OI Code Onset Dates Condition Status SNOMED Code Problem Gastroesophageal reflux disease without esophagitis K21.9 Active 608776412 Problem Anemia, unspecified type D64.9 Active 883072962 Problem History of colon polyps Z86.010 Active 808126692 Problem Unspecified psychosis not due to a substance or known physiological condition F29 Active 13099222 Problem Iron deficiency anemia, unspecified iron deficiency anemia type D50.9 Active 51178599 Problem Personality disorder F60.9 Active 52126889 Problem Factitious disorder imposed on self, recurrent episode F68.10 Active 95021964 Problem Anxiety F41.9 Active 29449230 Problem Age-related osteoporosis without current pathological fracture M81.0 Active 59301621 Problem Back pain M54.9 Active 929705977 Problem Insomnia, unspecified type G47.00 Active 220472199 Problem History of CVA with residual deficit I69.30 Active 218959794 Problem Perennial allergic rhinitis, unspecified allergic rhinitis trigger J30.89 Active 999766078 Problem Seizure disorder G40.909 Active 105662022 Problem Chronic kidney disease, unspecified stage N18.9 Active 072673465 ALLERGIES No Information ENCOUNTERS Encounter Location Date Diagnosis [facility] [address] [facility] [id number] [address] Dec, [facility] [address], [place] [address] 3508 Nov, [facility] [address] [id number], [place] [address] 1244 Nov, [facility] [address], [place] [address] 0344 October, [facility] [id number] [place] [address] 24278- 7694 October, [facility] [id number] [place] [id number] Sep, Back pain M54.9 [facility] [id number] [place] [address] 07718- 9504 Sep, Unspecified psychosis not due to a substance or known physiological condition F29 ; Personality disorder F60.9 and Factitious disorder imposed on self, recurrent episode F68.10 [facility] [id number] [place] [address] 06635- 4767 Sep, [facility] [id number] [place] [address] 50526- 1324 Sep, [facility] [id number] [place] [address] 03678- 9386 Sep, [facility] [id number] [place] [address] 62793- 3138 Sep, [facility] [id number] [place] [address] 08699- 4936 Aug, [facility] [id number] [place] [address] 99932- 0058 Aug, Back pain M54.9 [facility] [id number] [place] [address] 30025- 0691 Aug, Factitious disorder imposed on self, recurrent episode F68.10 ; Personality disorder F60.9 ; Insomnia, unspecified type G47.00 and Anxiety F41.9 [facility] [id number] [place] [address] 31531- 7554 08 Aug, 2017 Back pain M54.9 ; Iron deficiency anemia, unspecified iron deficiency anemia type D50.9 ; Chronic kidney disease, unspecified stage N18.9 and Breast cancer screening Z12.31 [facility] [id number][place] [id number] Jul, Back pain M54.9 [facility] [id number][place] [address] Jul, [facility] [id number] [id number] Jul, [facility] [id number][place] [id number] Jun, Back pain M54.9 [facility] [address] [id number] [id number] Jun, [facility] [id number][place] [id number] Jun, Back pain M54.9 [facility] [address] [id number] [address] Jun, Back pain M54.9 ; Seizure disorder G40.909 and Age-related osteoporosis without current pathological fracture M81.0 [facility] [address] [id number][place] [id number] May, [facility] [address] [address] 9885 May, Back pain M54.9 [facility] [address] [id number], [place] [address] 4484 Apr, Back pain M54.9 ; Encounter for immunization Z23 ; Gastroesophageal reflux disease without esophagitis K21.9 ; Age-related osteoporosis without current pathological fracture M81.0 and Chronic pruritus L29.9 [facility] [address] [id number], [place] [address] 9294 Apr, History of CVA with residual deficit I69.30 [facility] [address] [id number], [place] [address] 8568 16 Apr, 2017 Factitious disorder imposed on self, recurrent episode F68.10 and Personality disorder F60.9 [facility] [address] [id number] [address] Apr, Back pain M54.9 [facility] [id number] [place] [address] 25641- 4454 Mar, Factitious disorder imposed on self, recurrent episode F68.10 [facility] [address]00565100[place], [place] [address] 4195 Mar, [facility] [id number] [place] [id number] Mar, [facility] [id number] [place] [address] [id number] Mar, Back pain M54.9 [place] [address] [place] [address] 48744- 1816 Mar, Back pain M54.9 ; Seizure disorder G40.909 and Age-related osteoporosis without current pathological fracture M81.0 [place] [id number] [place] [address] 64893- 4088 Feb, History of CVA with residual deficit I69.30 [place] [id number] [place] [address] 73238- 8588 Feb, Factitious disorder imposed on self, recurrent episode F68.10 and Personality disorder F60.9 [place] [id number] [place] [address] 15055- 6705 15 Feb, 2017 Back pain M54.9 [facility] [id number] [place] [address] 97393- 2965 Feb, [place] [id number] [place] [address] 90381- 5685 Jan, [facility] [address] [place] [id number] Jan, Age- related osteoporosis without current pathological fracture M81.0 and Allergic state, subsequent encounter T78.40XD [facility] [id number] [place] [address] 44952- 3060 Jan, Factitious disorder imposed on self, recurrent episode F68.10 and Personality disorder F60.9 [facility] [address]00565100[place], [place] [address]- 5145 Dec, Back pain M54.9 [facility] [address] [id number], [place] [address]- 8711 Dec, Personality disorder F60.9 and Factitious disorder imposed on self, recurrent episode F68.10 [facility] [id number][place] [id number] Dec, Back pain M54.9 [facility] [id number] [place] [address] [id number] Dec, [facility] [id number] [place] [address] [id number] Dec, [facility] [address]00565100[place], [place] [address]- 7268 Dec, [facility] [address]00565100[place], [place] [address]- 4097 Nov, [facility] [id number] [place] [address] 05808- 9780 Nov, Back pain M54.9 ; Anemia, unspecified type D64.9 and History of colon polyps Z86.010 [facility] [address] [id number], [place] [address]- 8031 Nov, Back pain M54.9 [facility] [id number] [address] October, Back pain M54.9 [facility] [address] [place] [id number] October, Back pain M54.9 and Gastroesophageal reflux disease without esophagitis K21.9 [facility] [id number], [place] [id number] Sep, [facility] [address]00565100[place], [place] [address]- 4605 Sep, [facility] [address]00565100[place], [place] [address]- 8007 Sep, [facility] [id number] [place] [address] 12698- 4354 Sep, [facility] [address]00565100[place], [place] [address]- 6359 Sep, [facility] [id number] [place] [address] 77773- 1928 Sep, Seizure disorder G40.909 [facility] [id number] [place] [address] 19776- 2604 Sep, Back pain M54.9 [facility] [id number] [place] [address] 55292- 8600 Sep, [facility] [id number] [place] [address] 00659- 8319 Aug, Back pain M54.9 [facility] [address]00565[address], [place] [address]- 3639 Aug, Seizure disorder G40.[address] [facility] [id number] [place] [address] [id number] Aug, [facility] [id number] [id number] 16 Aug, [address] [facility] [id number] [place] [address] [id number] 14 Aug, [address] [facility] [id number] [place] [address] [id number] Aug, Back pain M54.9 [facility] [address] [place] [id number] Jul, Weakness R53.1 [facility] [address]005[address], [place] [address]- 1626 Jul, Seizure disorder G40.909 [facility] [address], [place] [address]- 0077 Jul, [facility] [id number] [place] [address] 62074- 8251 Jul, Breast cancer screening Z12.39 [facility] [id number] [place] [address] 21407- 4811 Jul, [facility] [id number] [place] [address] 25681- 6863 Jul, [facility] [id number] [place] [address] 91071- 9599 Jul, [facility] [id number] [place] [address] 27703- 1221 Jul, Seizure disorder G40.909 ; Fatigue, unspecified type R53.83 ; Perennial allergic rhinitis, unspecified allergic rhinitis trigger J30.89 and Chronic kidney disease, unspecified stage N18.9 [facility] [id number] [place] [address] 94297- 2509 Jul, [facility] [id number] [place] [address] 59550- 6035 Jul, Seizure disorder G40.909 [facility] [id number] [place] [address] 78821- 6786 Jun, [facility] [id number] [place] [address] 32624- 3304 Jun, [facility] [address] [id number] Jun, Perennial allergic rhinitis, unspecified allergic rhinitis trigger J30.89 [facility] [id number] [place] [address] [id number] Jun, [facility] [id number] [place] [address] 93724- 7659 Jun, Seizure disorder G40.909 [place] [id number] [place] [address] [id number] Jun, [facility] [id number] [place] [address] [id number] May, [facility] [id number] [place] [address] 48896- 9761 May, [facility] [id number] [place] [address] 75074- 8019 May, [facility] [id number] [place] [address] 77320- 5046 May, [facility] [id number] [place] [address] 02558- 0926 May, History of CVA with residual deficit I69.30 [facility] [id number] [place] [address] 33147- 2230 May, [facility] [id number] [place] [address] 71252- 1973 May, [facility] [id number] [place] [address] 47210- 4807 May, [facility] [id number] [place] [address] 04046- 6692 May, Seizure disorder G40.909 [facility] [id number] [place] [address] 75231- 7340 May, [facility] [address] [place] [address] May, Back pain M54.9 and Seizure disorder G40.909 [facility] [id number] [place] [address] 10877- 4291 Apr, [facility] [id number] [place] [address] 20562- 3983 Apr, Back pain M54.9 [facility] [id number] [place] [address] 19685- 4621 Mar, [employer] [facility] [address] [place] [address] Mar, Insomnia, unspecified type G47.00 [facility] [address] [facility] [id number], [place] [address]- 9305 Mar, [facility] [address]005[address], [place] [address]- 6257 Feb, [facility] [address] [facility] [id number] [place] [address] 34381- 5053 Feb, [facility] [address] [facility] [id number] [place] [address] 38500- 8009 Feb, [facility] [id number] [place] [address] 25363- 3013 Jan, [facility] [id number] [place] [address] 00150- 2922 Jan, [employer] [address] [place] [address] Jan, Seizure disorder G40.909 and Back pain M54.9 [facility] [address], [place] [address]- 3110 Dec, [facility] [address], [place] [address]- 9467 Dec, [facility] [address], [place] [address]- 3061 Dec, [facility] [address] [facility] [id number], [place] [address]- 8702 Nov, [facility] [address], [place] [address]- 9942 Nov, [facility] [address] [id number], [place] [address]- 6554 Nov, Back pain M54.9 [facility] [address], [place] [address]- 0753 October, [facility] [id number] [place] [address] 26867- 9218 October, Back pain M54.9 [facility] [id number] [place] [address] 17308- 3944 October, Seizure disorder G40.909 and B12 deficiency E53.8 [facility] [address] [place] [address] 33337- 1992 Sep, History of CVA with residual deficit I69.30 [facility] [id number] [place] [address] 23667- 7328 Sep, [facility] [id number] [place] [address] 71543- 1520 Sep, [facility] [id number] [place] [address] 07770- 4867 Sep, Back pain M54.9 [facility] [id number] [place] [address] 37754- 2025 Sep, Seizure disorder G40.909 [facility] [id number] [place] [address] 58632- 5815 Aug, Back pain M54.9 [facility] [id number] [place] [address] 55091- 5857 Aug, Seizure disorder G40.909 [facility] [id number] [place] [address] 77346- 9953 16 Aug, 2015 Back pain M54.9 [facility] [id number] [place] [address] 93455- 3504 14 Aug, 2015 Heart failure, unspecified I50.9 [facility] [id number] [place] [address] 13352- 9415 14 Aug, 2015 Medication monitoring encounter Z51.81 [facility] [id number] [place] [address] 34136- 6762 15 Jul, 2015 [facility] [address], [place] [address]- 0713 Jul, Seizure disorder G40.909 [facility] [id number] [place] [address] 52644- 4917 Jul, Back pain M54.9 [facility] [id number] [place] [address] 66305- 6016 Jun, [facility] [id number] [place] [address] 64811- 4752 Jun, [facility] [id number] [place] [address] 10286- 6627 Jun, Mental status change R41.82 ; History of CVA with residual deficit I69.30 ; Back pain M54.9 and Seizure disorder G40.909 [facility] [id number] [place] [address] 85987- 9955 Jun, [facility] [id number] [place] [address] 92179- 8695 May, [facility] [id number] [place] [address] 63516- 8515 Apr, [facility] [id number] [place] [address] 11609- 8300 Apr, Medication monitoring encounter Z51.81 [facility] [id number] [place] [address] 61517- 6482 Mar, Vomiting R11.10 [facility] [id number] [place] [address] 13981- 7285 Mar, [facility] [id number] [place] [address] 13647 2546 18 Feb, 2015 [facility] [id number] [place] [address] 25819- 2541 10 Feb, 2015 UTI (urinary tract infection) 599.0 [facility] [id number] [place] [address] 2546 Jan, [facility] [place] [facility] [address] [id number] [place] [address]- 5216 Jan, [facility] [place] [facility] [address] [id number] [place] [address]- 2546 Jan, [facility] [place] [facility] [address] [id number] [place] [address]- 3596 Dec, [facility] [place] [facility] [address] [id number] [place] [address]- 2546 Dec, [facility] [place] [facility] [address] [id number] [place] [address]- 7236 Dec, [facility] [place] [facility] [address] [id number] [place] [address]- 2546 Dec, [facility] [place] [facility] [address] [id number] [place] [address]- 0546 Nov, UNKNOWN Nov, [facility] [place] [facility] [address] [id number] [place] [address]- 3676 October, [facility] [place] [facility] [address] [facility] [id number] [place] [address]- 7504 Sep, [facility] [place] [facility] [address] [facility] [id number] [place] [address]- 1826 Sep, [facility] [place] [facility] [address] [id number] [place] [address]- 2546 Aug, [facility] [place] [facility] [address] [id number] [place] [address]- 2546 Aug, [facility] [place] [facility] [address] [id number] [place] [address] Jul, [facility] [place] [facility] [address] [id number] [place] [address] Jul, [facility] [place] [facility] [address] [id number] [place] [address] Jul, [facility] [place] [facility] [address] [id number] [place] [address] Jul, [facility] [place] [facility] [address] [id number] [place] [address] Jul, [facility] [place] [facility] [address] [id number] [place] [address] Jun, [facility] [place] [facility] [address] [id number] [place] [address] Jun, [facility] [place] [facility] [address] [id number] [place] [address] Jun, [facility] [place] [facility] [address] [id number] [place] [address] Jun, [facility] [place] [facility] [address] [id number] [place] [address] Jun, [facility] [place] [facility] [address] [id number] [place] [address]- [address] Jun, [facility] [place] [facility] [address] [id number] [place] [address] Jun, [facility] [place] [facility] [address] [id number] [place] [address] Jun, [facility] [place] [facility] [address] [id number], [place] [address] Jun, [facility] [place] [facility] [address] [id number], [place] [address] Jun, [facility] [place] [facility] [address] [id number] [place] [address] Jun, [facility] [place] [facility] [address] [id number] [place] [address] Jun, [facility] [place] [facility] [address] [id number] [place] [address]- [address] Jun, [facility] [place] [facility] [address] [id number] [place] [address] Jun, [facility] [address] [id number] [place] [address] Jun, [facility] [address] [id number] [place] [address] Jun, [facility] [address] [id number] [place] [address]- [address] Jun, [facility] [address] [id number] [place] [address] Jun, [facility] [address] [id number] [place] [address] May, [facility] [address] [id number] [place] [address] May, [facility] [address] [id number] [place] [address] May, [facility] [address] [id number] [place] [address] May, [facility] [address] [id number] [place] [address]- [address] May, [facility] [address] [id number] [place] [address] May, [facility] [address] [id number] [place] [address] May, [facility] [address] [id number] [place] [address] May, [facility] [address] [id number] [place] [address] May, [facility] [address] [place] [id number] May, [facility] [address] [id number] [place] [address] May, [facility] [place] [facility] [address] [id number] [place] [address] May, [facility] [place] [facility] [address] [id number] [place] [address] May, [facility] [place] [facility] [address] [id number] [place] [address] Apr, [facility] [place] [facility] [address] [address] [id number] [place] [address] 8587 Apr, [facility] [place] [facility] [address] [id number] [place] [address] 3206 Apr, [facility] [place] [facility] [address] [id number] [place] [address] 8801 Apr, [facility] [place] [facility] [address] [id number] [place] [address] Apr, [facility] [place] [facility] [address] [id number] [place] [address]- 0728 Apr, [facility] [place] [facility] [address] [id number] [place] [address] 7329 Mar, [facility] [place] [facility] [address] [id number] [place] [address]- 5999 Mar, [facility] [place] [facility] [address] [id number] [place] [address]- 1472 Mar, [facility] [place] [facility] [address] [id number] [place] [address] 7647 Mar, [facility] [place] [facility] [address] [id number] [place] [address] Mar, [facility] [place] [facility] [address] [id number] [place] [address]- 0236 Mar, [facility] [place] [facility] [address] [id number] [place] [address]- 2198 Feb, [facility] [place] [facility] [address] [id number] [place] [address]- 0854 24 Feb, 2014 [facility] [address] [id number] [place] [address] 2989 Feb, [facility] [place] [facility] [address] [id number] [place] [address]- 4221 Feb, [facility] [place] [facility] [address] [id number] [place] [address]- 4915 Feb, [facility] [place] [facility] [address] [id number] [place] [address]- 6066 Feb, [facility] [place] [facility] [address] [id number] [place] [address]- 1285 Feb, [facility] [place] [facility] [address] [id number] [place] [address]- 7171 Feb, [facility] [place] [facility] [address] [id number] [place] [address]- 3676 Feb, [facility] [place] [facility] [address] [id number] [place] [address]- 9911 Feb, [facility] [address] [id number] Feb, [facility] [place] [facility] [address] [id number] [place] [address]- 4158 Feb, [facility] [place] [facility] [address] [id number] [place] [address]- 7338 Jan, [facility] [place] [facility] [address] [id number], [place] [address] 2799 Jan, [facility] [place] [facility] [address] [id number] [place] [address]- 4896 Dec, [facility] [place] [facility] [address] [id number] [place] [address]- 5408 Dec, [facility] [place] [facility] [address] [id number] [place] [address]- 9117 Dec, [facility] [place] [facility] [address] [id number] [place] [address]- 9640 Dec, [facility] [place] [facility] [address] [id number] [place] [address]- 9338 Dec, [facility] [place] [facility] [address] [id number] [place] [address]- 7778 Dec, [facility] [place] [facility] [address] [id number] [place] [address]- 9581 Dec, [facility] [place] [facility] [address] [id number] [place] [address]- 2784 Dec, [facility] [place] [facility] [address] [id number] [place] [address]- 1687 Dec, [facility] [place] [facility] [address] [id number] [place] [address]- 9448 Dec, [facility] [place] [facility] [address] [id number] [place] [address]- 5560 Nov, [facility] [place] [facility] [address] [id number] [place] [address]- 0688 Nov, [facility] [place] [facility] [address] [id number] [place] [address]- 5724 Nov, [facility] [place] [facility] [address] [id number] [place] [address]- 9541 Nov, [facility] [place] [facility] [address] [id number] [place] [address]- 1774 Nov, [facility] [place] [facility] [address] [id number] [place] [address]- 0872 Nov, [facility] [place] [facility] [address] [id number] [place] [address]- 8186 Nov, [facility] [place] [facility] [address] [id number] [place] [address]- 8695 Nov, [facility] [place] [facility] [address] [id number] [place] [address]- 6805 Nov, [facility] [place] [facility] [address] [id number] [place] [address]- 7531 Nov, [facility] [address] [id number] [place] [address]- 6198 Nov, [facility] [place] [facility] [address] [id number] [place] [address]- 5705 Nov, [facility] [place] [facility] [address] [id number] [place] [address]- 8044 Nov, [facility] [place] [facility] [address] [id number] [place] [address]- 4287 Nov, [facility] [place] [facility] [address] [id number] [place] [address] 8192 October, [facility] [place] [facility] [address] [id number] [place] [address]- 5668 October, [facility] [place] [facility] [address] [id number] [place] [address]- 6041 October, [facility] [address] [id number] [place] [address]- 8399 October, [facility] [place] [facility] [address] [id number] [place] [address]- 5610 October, [facility] [address] [id number] [place] [address]- 9274 October, [facility] [place] [facility] [address] [id number] [place] [address]- 7109 October, [facility] [place] [facility] [address] [id number] [place] [address]- 6134 October, [facility] [place] [facility] [address] [id number] [place] [address]- 0229 October, [facility] [place] [facility] [address] [id number] [place] [address]- 0966 October, [facility] [place] [facility] [address] [id number] [place] [address]- 9444 Sep, [facility] [place] [facility] [address] [id number] [place] [address]- 7430 Sep, [facility] [place] [facility] [address] [id number] [place] [address]- 4372 Sep, [facility] [place] [facility] [address] [id number] [place] [address]- 6510 Sep, [facility] [place] [facility] [address] [id number] [place] [address]- 2440 Sep, [facility] [place] [facility] [address] [id number] [place] [address]- 7536 Sep, [facility] [place] [facility] [address] [id number] [place] [address]- 7994 Sep, [facility] [place] [facility] [address] [id number] [place] [address]- 7265 Sep, [facility] [place] [facility] [address] [id number] [place] [address]- 3868 Sep, [facility] [place] [facility] [address] [id number] [place] [address]- 9978 Sep, [facility] [place] [facility] [address] [id number] [place] [address]- 5225 Aug, [facility] [place] [facility] [address] [id number] [place] [address]- 2592 Aug, [facility] [place] [facility] [address] [id number] [place] [address]- 7008 Aug, [facility] [place] [facility] [address] [id number] [place] [address]- 6272 Aug, [facility] [place] [facility] [address] [id number] [place] [address]- 6730 Aug, [facility] [place] [facility] [address] [id number] [place] [address]- 3799 Aug, [facility] [place] [facility] [address] [id number] [place] [address]- 6678 Aug, [facility] [place] [facility] [address] [id number] [place] [address]- 8947 Aug, [facility] [place] [facility] [address] [id number] [place] [address]- 8357 Aug, [facility] [place] [facility] [address] [id number] [place] [address]- 1199 Jul, [facility] [place] [facility] [address] [id number] [place] [address]- 3913 Jul, [facility] [place] [facility] [address] [id number] [place] [address]- 4644 Jul, [facility] [place] [facility] [address] [id number] [place] [address]- 4134 Jul, [facility] [place] [facility] [address] [id number] [place] [address]- 3357 Jul, [facility] [place] [facility] [address] [id number] [place] [address]- 8707 Jul, [facility] [place] [facility] [address] [id number] [place] [address]- 9834 Jul, [facility] [place] [facility] [address] [id number] [place] [address]- 8012 Jul, [facility] [place] [facility] [address] [id number] [place] [address]- 7360 Jul, [facility] [place] [facility] [address] [id number] [place] [address]- 2214 17 Jul, 2013 [facility] [place] [facility] [address] [id number] [place] [address]- 9686 Jul, [facility] [place] [facility] [address] [id number] [place] [address]- 5026 06 Jul, 2013 [facility] [place] [facility] [address] [id number] [place] [address]- 2350 Jul, [facility] [place] [facility] [address] [id number] [place] [address]- 4926 Jul, [facility] [place] [facility] [address] [id number] [place] [address] Jul, [facility] [place] [facility] [address] [id number] [place] [address]- 6312 Jul, [facility] [place] [facility] [address] [id number] [place] [address]- 4219 Jun, [facility] [place] [facility] [address] [id number] [place] [address]- 5992 Jun, [facility] [place] [facility] [address] [id number] [place] [address]- 2845 Jun, [facility] [place] [facility] [address] [id number] [place] [address]- 7844 Jun, [facility] [place] [facility] [address] [id number] [place] [address]- 3274 Jun, [facility] [place] [facility] [address] [id number] [place] [address]- 2188 Jun, [facility] [place] [facility] [address] [id number] [place] [address]- 9661 May, [facility] [place] [facility] [address] [id number], [place] [address]- 3459 May, [facility] [place] [facility] [address] [id number], [place] [address]- 9292 May, [facility] [place] [facility] [address] [id number] [place] [address]- 4265 May, [facility] [place] [facility] [address] [id number], [place] [address]- 6238 Apr, [facility] [place] [facility] [address] [id number] [place] [address]- 2404 Apr, [facility] [place] [facility] [address] [id number] [place] [address]- 6843 Apr, [facility] [place] [facility] [address] [id number] [place] [address]- 6327 Apr, [facility] [place] [facility] [address] [id number] [place] [address]- 6867 Apr, [facility] [place] [facility] [address] [id number] [place] [address]- 7553 Apr, [facility] [place] [facility] [address] [id number] [place] [address]- 2048 Apr, [facility] [place] [facility] [address] [id number] [place] [address]- 1086 Apr, [facility] [place] [facility] [address] [id number] [place] [address]- 0602 Apr, [facility] [place] [facility] [address] [id number] [place] [address]- 6170 Apr, [facility] [address] [id number] [place] [address]- 0585 Apr, [facility] [place] [facility] [address] [id number] [place] [address]- 0246 Apr, [facility] [place] [facility] [address] [id number] [place] [address]- 9158 Mar, [facility] [place] [facility] [address] [id number] [place] [address]- 0701 28 Mar, 2013 [facility] [place] [facility] [address] [id number], [place] [address]- 0994 16 Mar, 2013 [facility] [place] [facility] [address] [id number] [place] [address]- 5829 16 Mar, 2013 [facility] [place] [facility] [address] [id number] [place] [address]- 2525 15 Mar, 2013 [facility] [place] [facility] [address] [id number] [place] [address]- 7112 15 Mar, 2013 [facility] [place] [facility] [address] [id number] [place] [address]- 4898 27 Feb, 2012 [facility] [place] [facility] [address] [id number] [place] [address]- 9316 25 Feb, 2012 [facility] [place] [facility] [address] [id number] [place] [address]- 5453 25 Feb, 2012 [facility] [place] [facility] [address] [id number] [place] [address]- 5780 23 Feb, 2012 [facility] [place] [facility] [address] [id number] [place] [address]- 8499 17 Feb, 2012 [facility] [place] [facility] [address] [id number] [place] [address]- 6278 10 Feb, 2013 [facility] [place] [facility] [address] [id number] [place] [address]- 6815 04 Feb, 2013 [facility] [place] [facility] [address] [id number] [place] [address]- 5461 30 Jan, 2013 [facility] [place] [facility] [address] [id number] [place] [address]- 7362 Jan, [facility] [place] [facility] [address] [id number] [place] [address]- 7981 Jan, [facility] [place] [facility] [address] [id number] [place] [address]- 2048 Jan, [facility] [place] [facility] [address] [id number] [place] [address]- 9326 Jan, [facility] [place] [facility] [address] [id number] [place] [address]- 3271 Jan, [facility] [place] [facility] [address] [id number] [place] [address]- 7387 Jan, [facility] [place] [facility] [address] [id number] [place] [address]- 1145 Dec, [facility] [place] [facility] [address] [id number] [place] [address]- 0883 Dec, [facility] [address] [id number] [place] [address]- 9791 Dec, [facility] [address] [id number] [place] [address]- 1353 Dec, [facility] [address] [id number] [place] [address]- 1126 Dec, [facility] [address] [id number] [place] [address]- 4186 Dec, [facility] [address] [id number] [place] [address]- 5808 Nov, [facility] [address] [id number] [place] [address]- 5140 Nov, [facility] [address] [id number] [place] [address]- 8746 Nov, [facility] [address] [id number] [place] [address]- 1581 Nov, [facility] [address] [id number] [place] [address]- 3036 October, [facility] [address] [id number] [place] [address]- 4605 October, [facility] [address] [id number] [place] [address]- 2894 October, [facility] [address] [id number] [place] [address]- 7963 October, [facility] [address] [id number] [place] [address]- 0190 Sep, [facility] [place] [facility] [address] [id number] [place] [address]- 6098 Sep, [facility] [address] [id number] [place] [address]- 5821 16 Sep, 2012 [facility] [address] [id number] [place] [address]- 0689 Sep, [facility] [place] [facility] [address] [id number] [place] 5222 Sep, [facility] [place] [facility] [address] [id number] [place] 4363 Sep, [facility] [place] [facility] [address] [id number] [place] [address]- 2965 Sep, [facility] [place] [facility] [address] [id number] [place] [address]- 9478 Sep, [facility] [place] [facility] [address] [id number] [place] [address]- 0082 Aug, [facility] [place] [facility] [address] [facility] [id number] [place] [address]- 5944 Aug, [facility] [place] [facility] [address] [id number] [place] [address]- 7953 Aug, [facility] [place] [facility] [address] [id number] [place] [address]- 8730 Jul, [facility] [place] [facility] [address] [id number] [place] [address]- 1657 08 Jul, 2012 [facility] [place] [facility] [address] [id number] [place] [address]- 7723 Jul, [facility] [place] [facility] [address] [id number], [place] [address]- 6368 Jul, [facility] [place] [facility] [address] [id number] [place] [address]- 2270 05 Jul, 2012 [facility] [place] [facility] [address] [id number] [place] [address]- 6589 Jun, [facility] [place] [facility] [address] [id number] [place] [address]- 2646 Jun, [facility] [place] [facility] [address] [id number], [place] [address]- 5364 Jun, [facility] [place] [facility] [address] [id number] [place] [address]- 6089 May, [facility] [place] [facility] [address] [id number] [place] [address]- 7266 May, [facility] [place] [facility] [address] [id number] [place] [address]- 2686 May, [facility] [place] [facility] [address] [id number] [place] [address]- 0527 May, [facility] [place] [facility] [address] [id number] [place] [address]- 0007 May, [facility] [place] [facility] [address] [id number] [place] [address]- 4006 May, [facility] [place] [facility] [address] [id number] [place] [address]- 2473 May, [facility] [place] [facility] [address] [id number] [place] [address]- 7015 Apr, [facility] [place] [facility] [address] [id number] [place] [address]- 6184 Apr, [facility] [place] [facility] [address] [id number] [place] [address]- 8426 Apr, [facility] [place] [facility] [address] [id number], [place] [address]- 6111 Apr, [facility] [place] [facility] [address] [id number], [place] [address]- 6823 Apr, [facility] [place] [facility] [address] [id number] [place] [address]- 3575 Apr, [facility] [place] [facility] [address] [id number] [place] [address]- 2409 13 Apr, 2012 [facility] [place] [facility] [address] [id number] [place] [address]- 6668 13 Apr, 2012 [facility] [place] [facility] [address] [id number] [place] [address]- 6427 Apr, [facility] [place] [facility] [address] [id number] [place] [address]- 7518 Apr, [facility] [place] [facility] [address] [id number] [place] [address] 2546 Apr, [facility] [place] [facility] [address] [id number] [place] [address]- 9508 Mar, [facility] [place] [facility] [address] [id number] [place] 1843 Mar, [facility] [place] [facility] [address] [id number] [place] [address]- 2257 Mar, [facility] [place] [facility] [address] [id number] [place] [address]- 4502 Mar, [facility] [place] [facility] [address] [id number] [place] [address]- 27[address] Mar, [facility] [place] [facility] [address] [id number] [place] [address] Mar, [facility] [place] [facility] [address] [id number] [place] [address] 1468 Mar, [facility] [place] [facility] [address] [id number] [place] [address] Mar, [facility] [place] [facility] [address] [id number] [place] [address]- [address]773 Mar, [facility] [place] [facility] [address] [id number] [place] [address]- [address] 16 Mar, 2012 [facility] [place] [facility] [address] [id number] [place] [address]- [address] Mar, [facility] [place] [facility] [address] [id number] [place] [address]- [address] 2012 [facility] [place] [facility] [address] [id number] [place] [address]- [address] 27 Feb, 2012 [facility] [place] [facility] [address] [id number] [place] [address]- 48[address] 27 Feb, 2011 [facility] [place] [facility] [address] [id number] [place] [address]- [address]66 26 Feb, 2012 [facility] [place] [facility] [address] [id number] [place] [address]- [address]38 24 Feb, 2012 [facility] [place] [facility] [address] [id number] [place] [address] 6391 19 Feb, 2011 [facility] [place] [facility] [address] [id number] [place] [address]- [address]407 18 Feb, 2012 [facility] [place] [facility] [address] [id number] [place] [address]- 5328 18 Feb, 2012 [facility] [place] [facility] [address] [id number] [place] [address]- [address] Feb, [facility] [place] [facility] [address] [id number] [place] [address]- 1714 Jan, [facility] [place] [facility] [address] [id number] [place] [address]- [address] Jan, [facility] [place] [facility] [address] [id number] [place] [address]- 6961 Jan, [facility] [place] [facility] [address] [id number] [place] [address]- 7358 Jan, [facility] [place] [facility] [address] [id number] [place] [address]- [address]134 Dec, [facility] [place] [facility] [address] [id number] [place] [address]- 5873 Dec, [facility] [place] [facility] [address] [id number] [place] [address]- 3870 Dec, [facility] [place] [facility] [address] [id number] [place] [address]- [address]554 Dec, [facility] [place] [facility] [address] [id number] [place] [address]- [address] 24 Dec, 2011 [facility] [place] [facility] [address] [id number] [place] [address]- 3232 24 Dec, 2011 [facility] [place] [facility] [address] [id number] [place] [address]- [address]265 Dec, [facility] [place] [facility] [address] [id number] [place] [address]- 9966 Dec, [facility] [place] [facility] [address] [id number] [place] [address]- 0053 Dec, [facility] [place] [facility] [address] [id number] [place] [address]- 1660 Dec, [facility] [place] [facility] [address] [id number] [place] [address]- 8696 Dec, [facility] [place] [facility] [address] [id number] [place] [address]- 7651 Dec, [facility] [place] [facility] [address] [id number] [place] [address]- 4029 Dec, [facility] [place] [facility] [address] [id number] [place] [address]- 0[address] 05 Dec, 2011 [facility] [place] [facility] [address] [id number] [place] [address]- 1288 Nov, [facility] [place] [facility] [address] [id number] [place] [address]- 9960 14 Nov, 2011 [facility] [place] [facility] [address] [id number] [place] [address]- [address]852 Nov, [facility] [place] [facility] [address] [id number] [place] [address]- 5965 07 Nov, 2011 [facility] [place] [facility] [address] [id number] [place] [address]- [address]45 07 Nov, 2011 [facility] [place] [facility] [address] [id number] [place] [address]- [address]246 07 Nov, 2011 [facility] [place] [facility] [address] [id number] [place] [address]- 8968 October, [facility] [address] [id number] [place] [address]- 4[address] October, [facility] [place] [facility] [address] [id number] [place] [address]- 3486 October, [facility] [address] [id number] [place] [address]- [address]389 October, [facility] [address] [id number] [place] [address]- [address] Sep, [facility] [place] [facility] [address] [id number] [place] [address]- [address]498 17 Sep, 2011 [facility] [address] [id number] [place] [address]- 9793 Sep, [facility] [address] [id number] [place] [address]- 4328 Sep, [facility] [address] [id number] [place] [address]- 0546 Sep, [facility] [address] [id number] [place] [address]- 0215 Aug, [facility] [place] [facility] [address] [id number] [place] [address]- 3839 Aug, [facility] [place] [facility] [address] [id number] [place] [address]- 8184 Aug, [facility] [place] [facility] [address] [id number] [place] [address]- [address] 20 Aug, 2011 [facility] [place] [facility] [address] [id number] [place] [address]- 5151 13 Aug, 2011 [facility] [place] [facility] [address] [id number] [place] [address]- 96[address] 02 Aug, 2011 [facility] [place] [facility] [address] [id number] [place] [address]- 238[address] Aug, [facility] [address] [facility] [id number], [place] [address] Jul, [facility] [address] [facility] [id number], [place] [address]- 26[address] Jul, [facility] [address] [facility] [id number], [place] [address]- [address]486 Jul, [facility] [address] [facility] [id number], [place] [address] Jul, [facility] [address] [facility] [id number], [place] [address]- [address]2 Jun, [address] [id number] Jun, [facility] [address] [facility] [id number], [place] [address]- [address]84 Jun, [facility] [address] [facility] [id number], [place] [address]- [address] Jun, [facility] [address] [facility] [id number], [place] [address]- [address]39 Jun, [facility] [address] [facility] [id number], [place] [address]- 9882 Jun, [facility] [address] [facility] [id number], [place] [address]- 8569 Jun, [facility] [address] [facility] [id number], [place] [address]- 1171 Jun, [facility] [address] [facility] [id number], [place] [address]- 3662 May, [facility] [address] [facility] [id number], [place] [address]- 8924 May, [facility] [address] [facility] [id number] [address] May, [facility] [address] [id number] [place] [address] May, [facility] [place] [facility] [address] [id number] [place] [address] May, [facility] [place] [facility] [address] [id number] [place] [address] May, [facility] [place] [facility] [address] [id number] [place] [address] May, [facility] [place] [facility] [address] [id number] [place] [address] Apr, [facility] [place] [facility] [address] [id number] [place] [address] Apr, [facility] [place] [facility] [address] [id number] [place] [address] Apr, [facility] [place] [facility] [address] [id number] [place] [address] 27 Mar, 2011 [facility] [place] [facility] [address] [id number] [place] [address] 20 Mar, 2011 [facility] [place] [facility] [address] [id number] [place] [address] 14 Mar, 2011 [facility] [place] [facility] [address] [id number] [place] [address] Mar, [facility] [place] [facility] [address] [id number] [place] [address] 10 Mar, 2011 [facility] [place] [facility] [address] [id number] [place] [address] 10 Mar, 2011 [facility] [place] [facility] [address] [id number] [place] [address] Mar, [facility] [place] [facility] [address] [id number] [place] [address] Jan, [facility] [place] [facility] [address] [id number] [place] [address] 27 May, 2010 [facility] [place] [facility] [address] [id number] [place] [address] 21 May, 2010 [facility] [place] [facility] [address] [id number] [place] [address] May, [facility] [place] [facility] [address] [id number] [place] [address] 13 May, 2010 [facility] [place] [facility] [address] [id number] [place] [address] 10 May, 2010 [facility] [place] [facility] [address] [id number] [place] [address] 06 May, 2010 [facility] [place] [facility] [address] [id number] [place] [address] 29 Apr, 2010 [facility] [place] [facility] [address] [id number] [place] [address] 26 Apr, 2010 [facility] [place] [facility] [address] [id number] [place] [address] Apr, [facility] [place] [facility] [address] [id number] [place] [address] 18 Apr, 2010 [facility] [place] [facility] [address] [id number] [place] [address] 15 Apr, 2010 [facility] [place] [facility] [address] [id number] [place] [address] Apr, [facility] [place] [facility] [address] [id number] [place] [address] Apr, [facility] [place] [facility] [address] [id number] [place] [address] Apr, [facility] [place] [facility] [address] [id number] [place] [address] Apr, [facility] [place] [facility] [address] [id number] [place] [address] Apr, [facility] [place] [facility] [address] [id number] [place] [address] Mar, [facility] [address] [facility] [id number], [place] [address] Mar, [facility] [id number] [address] Mar, [facility] [address] [id number], [place] [address] Mar, [facility] [id number] [address] Mar, [facility] [address] [id number], [place] [address] Dec, [facility] [id number], [place] [address] Nov, IMMUNIZATIONS No Known Immunizations SOCIAL HISTORY Never Assessed REASON FOR VISIT f/nicola Hearn RN PLAN OF CARE Activity Details Follow Up 2 Months Reason: VITAL SIGNS Height 62 in 2017-03-12 Weight 106.4 lbs 2017-03-12 Heart Rate 66 bpm 2017-03-12 Respiratory Rate 18 2017-03-12 BMI 19.46 kg/m2 2017-03-12 Blood pressure systolic 122 mmHg 2017-03-12 Blood pressure diastolic 64 mmHg 2017-03-12 MEDICATIONS Medication Instructions Dosage Frequency Start Date End Date Duration Status Vitamin B-12 1000 MCG/ML Injection every 14 days 1 ml Active Topamax 100 MG Orally Twice a day 1 tablet 12h Active Omeprazole Magnesium 20.6 (20 Base) MG Orally Once a day 1 capsule 24h Active Ibuprofen 200 mg Orally every 8 hours as needed for headache 2 tablets Active Refresh Liquigel 1 % Ophthalmic 4 times a day 1 drop into affected eye as needed 6h Active Bisacodyl 10 MG Rectal Once a day 1 suppository as needed 24h Active Hydrocortisone 2.5 % Externally every 24 hours as needed for dry skin 1 application to affected area Active Zofran ODT 4 MG Orally every 8 hrs 1 tablet on the tongue and allow to dissolve 8h Active Fentanyl 75 MCG/HR Transdermal every 72 hours 1 patch to skin Feb, Mar, 30 days Active Fexofenadine-Pseudoephed ER 60-120 MG Orally Twice a day 1 tablet as needed 12h 22 Jan, 2017 Feb, 30 days Active Phenytoin 100 MG/4ML Orally at bedtime 150mg Active Clorazepate Dipotassium 3.75 MG Orally Twice a day 1` tablets 12h 28 Active Metoprolol Tartrate 25 MG Orally Twice a day 1 tablet with food 12h Active Citalopram Hydrobromide 20 MG Orally Once a day 1 tablet 24h 30 days Active Nitro-Dur 0.2 MG/HR Transdermal Once a day 1 patch to skin remove after 12 hours 24h Active Sodium Bicarbonate 650 MG Orally Once a day 1 tablet 24h Active Folic Acid 1 MG TAKE 1 TABLET BY MOUTH EVERY DAY 30 Active Tussin Cough DM 100-10 MG/5ML Orally every 6 hrs as needed for cough 10 ml as needed Active Gabapentin 400 mg Orally at bedtime 1 tablet Active Restasis 0.05 % 1 DROP EACH EYE TWICE DAILY 30 Active Melatonin 3 MG Orally Once a day 1 tablet at bedtime as needed with food 24h Active Lamotrigine 100 mg Orally 2 times a day 1 tablet 12h Active Coumadin 1 MG Orally Once a day 1mg on Sat, , Sat, and Saturday, 1.5mg on Satd, sat, Fri 24h Active Lipitor 40 MG Orally Once a day 1 tablet 24h Active Fioricet 50-300-40 MG Orally every 6 hrs 1 capsule as needed 6h Active Tylenol 325 MG Orally every 6 hrs as needed for headache 2 tablets as needed Active Vitamin D (Ergocalciferol) 08565 UNIT Orally 2 times a day every 7 days 1 capsule Active Fexofenadine HCl 180 MG Orally Once a day 1 tablet 24h Active Saline Mist [place] 0.65 % Nasally 1 spray in both nostrils every 4 hours 1 [place] Active RESULTS No Results PROCEDURES Procedure Date Ordered Result Body Site PSYTX COMPLEX INTERACTIVE Mar 12, 2017 INSTRUCTIONS MEDICATIONS ADMINISTERED No [...] surgery and skin graft, cholecysectomy Hospitalization History [facility] 12/2016
--- OUTSIDE RECORDS SUMMARY | 2018-02-04 13:36 | XMS REPORT ---
Author Author IRENE PATEL [facility] Address [address] [place] [address] Care Team Providers Care Electron Microprobe Operator Name Role Phone IRENE PATEL Unavailable PROBLEMS Type Condition ICD9-CM Code ZPF22-XR Code Onset Dates Condition Status SNOMED Code Problem Gastroesophageal reflux disease without esophagitis K21.9 Active 242973032 Problem Anemia, unspecified type D64.9 Active 645596792 Problem History of colon polyps Z86.010 Active 758772930 Problem Unspecified psychosis not due to a substance or known physiological condition F29 Active 65065679 Problem Iron deficiency anemia, unspecified iron deficiency anemia type D50.9 Active 32158052 Problem Personality disorder F60.9 Active 81522541 Problem Factitious disorder imposed on self, recurrent episode F68.10 Active 94790753 Problem Anxiety F41.9 Active 67620967 Problem Age-related osteoporosis without current pathological fracture M81.0 Active 27404979 Problem Back pain M54.9 Active 001005887 Problem Insomnia, unspecified type G47.00 Active 116864352 Problem History of CVA with residual deficit I69.30 Active 399096273 Problem Perennial allergic rhinitis, unspecified allergic rhinitis trigger J30.89 Active 736814874 Problem Seizure disorder G40.909 Active 908275608 Problem Chronic kidney disease, unspecified stage N18.9 Active [id number] ALLERGIES No Information ENCOUNTERS Encounter Location Date Diagnosis [facility] [place] [address] [facility] [id number] [address] Dec, [facility] [place] [address] [address] Nov, [facility] [place] [address] [id number] [address] 98[address] Nov, [place] [address] [place] [address] 26751- 7900 October, [facility] [place] [id number] [place] [address] 58180- 7272 October, [facility] [place] [id number] [place] [address] 44856- 0852 Sep, Back pain M54.9 [place] [address] [address]- [address] Sep, Unspecified psychosis not due to a substance or known physiological condition F29 ; Personality disorder F60.9 and Factitious disorder imposed on self, recurrent episode F68.10 [place] [address] [address]- 8932 Sep, [facility] [place] [id number] [place] [address] 39611- 9267 Sep, [facility] [place] [address] 59[address]- 4504 Sep, [facility] [place] [id number] [place] [address] 05600- 9712 Sep, [facility] [place] [id number] [place] [address] 71900- 3755 Aug, [facility] [place] [id number] [place] [address] 48057- 5132 Aug, Back pain M54.9 [facility] [place] [id number] [place] [address] 10192- 5570 Aug, Factitious disorder imposed on self, recurrent episode F68.10 ; Personality disorder F60.9 ; Insomnia, unspecified type G47.00 and Anxiety F41.9 [place] [id number] [place] [address] 60604- 5284 08 Aug, 2017 Back pain M54.9 ; Iron deficiency anemia, unspecified iron deficiency anemia type D50.9 ; Chronic kidney disease, unspecified stage N18.9 and Breast cancer screening Z12.31 [facility] [address] [id number] [id number] Jul, Back pain M54.9 [facility] [address] [place] [id number] [id number] Jul, [facility] [address] [id number] [id number] Jul, [facility] [id number][place] [id number] Jun, Back pain M54.9 [facility] [address] [id number] [id number] Jun, [facility] [id number][place] [id number] Jun, Back pain M54.9 [facility] [place] [address] [id number] [address] 5688 Jun, Back pain M54.9 ; Seizure disorder G40.909 and Age-related osteoporosis without current pathological fracture M81.0 [facility] [id number][place] [id number] May, [facility] [place] [address] [address] 6566 May, Back pain M54.9 [facility] [place] [address] [id number] [address]- 5935 Apr, Back pain M54.9 ; Encounter for immunization Z23 ; Gastroesophageal reflux disease without esophagitis K21.9 ; Age-related osteoporosis without current pathological fracture M81.0 and Chronic pruritus L29.9 [facility] [place] [address] [id number] [address]- 9857 16 Apr, 2017 History of CVA with residual deficit I69.30 [facility] [place] [address] [id number] [address]- 8764 16 Apr, 2017 Factitious disorder imposed on self, recurrent episode F68.10 and Personality disorder F60.9 [facility] [id number], [place] [id number] Apr, Back pain M54.9 [facility] [place] [address] [place] [address] 12322- 3583 Mar, Factitious disorder imposed on self, recurrent episode F68.10 [facility] [place] [address] [address]- 4731 Mar, [facility] [address] [id number] [place] [address] [id number] Mar, [facility] [address] [place] [address] [id number] [place] [address] [id number] Mar, Back pain M54.9 [place] [address] [place] [address] 26220- 3791 Mar, Back pain M54.9 ; Seizure disorder G40.909 and Age-related osteoporosis without current pathological fracture M81.0 [place] [address] [place] [address] 56375- 0934 Feb, History of CVA with residual deficit I69.30 [place] [address] [address] [id number] [place] [address] 33920- 8019 Feb, Factitious disorder imposed on self, recurrent episode F68.10 and Personality disorder F60.9 [place] [address] [place] [address] 12408- 0248 15 Feb, 2017 Back pain M54.9 [facility] [place] [address]100[place] [address]- 6859 Feb, [place] [address] [place] [address] 41738- 9030 Jan, [facility] [address] [place] [id number] Jan, Age- related osteoporosis without current pathological fracture M81.0 and Allergic state, subsequent encounter T78.40XD [place] [address] [place] [address] [id number] [place] [address] 27740- 5088 Jan, Factitious disorder imposed on self, recurrent episode F68.10 and Personality disorder F60.9 [facility] [place] [address]100[place] [address]- 9864 Dec, Back pain M54.9 [facility] [place] [address] [id number] [address]- 9057 Dec, Personality disorder F60.9 and Factitious disorder imposed on self, recurrent episode F68.10 [facility] [address] [id number] [id number] Dec, Back pain M54.9 [facility] [id number] [place] [address] [id number] Dec, [facility] [id number] [place] [address] [id number] Dec, [facility] [place] [address] [place] [address] 89861- 8723 Dec, [facility] [place] [address] [place] [address] 91774- 5499 Nov, [facility] [place] [address] [place] [address] 05248- 1265 Nov, Back pain M54.9 ; Anemia, unspecified type D64.9 and History of colon polyps Z86.010 [facility] [place] [address], [place] [address]- 2966 Nov, Back pain M54.9 [facility] [id number], [place] [id number] October, Back pain M54.9 [facility] [address] [place] [id number] October, Back pain M54.9 and Gastroesophageal reflux disease without esophagitis K21.9 [facility] [id number] [id number] Sep, [facility] [place] [address]005[address]100[place] [address]- 4931 Sep, [facility] [place] [address]100[place], [place] [address]- 3946 Sep, [facility] [place] [address] [place] [address] 23808- 0703 Sep, [facility] [place] [address] [place] [address] 60554- 2168 Sep, [facility] [id number] [place] [address] 56267- 9039 Sep, Seizure disorder G40.909 [facility] [place] [id number] [place] [address] 96559- 5465 Sep, Back pain M54.9 [facility] [place] [address] [place] [address] 05003- 6320 Sep, [facility] [id number] [place] [address] 53372- 8881 Aug, Back pain M54.9 [facility] [place] [address] [place] [address] 88900- 7807 Aug, Seizure disorder G40.909 [facility] [id number] [place] [address] [id number] Aug, [facility] [id number] [place] [address] [id number] 16 Aug, 2016 Back pain M54.9 [facility] [id number] [place] [address] [id number] 14 Aug, 2016 Back pain M54.9 [facility] [address] [place] [address] [id number] [place] [address] [id number] Aug, Back pain M54.9 [facility] and [facility] [address] [place] [id number] Jul, Weakness R53.1 [facility] [address], [place] [address]- 6176 Jul, Seizure disorder G40.909 [facility] [place] [address]100[place], [place] [address]- 3075 Jul, [facility] [place] [address] [place] [address] 91745- 1986 Jul, Breast cancer screening Z12.39 [facility] [place] [id number] [place] [address] 66589- 4652 Jul, [facility] [place] [id number] [place] [address] 70335- 1750 Jul, [facility] [place] [address] [place] [address] 10380- 8703 Jul, [facility] [place] [address] [place] [address] 56755- 2902 Jul, Seizure disorder G40.909 ; Fatigue, unspecified type R53.83 ; Perennial allergic rhinitis, unspecified allergic rhinitis trigger J30.89 and Chronic kidney disease, unspecified stage N18.9 [facility] [place] [address], [place] [address]- 0559 Jul, [facility] [place] [address] [place] [address] 64364- 7921 Jul, Seizure disorder G40.909 [facility] [place] [address], [place] [address]- 1987 Jun, [facility] [place] [address] [place] [address] 84803- 5043 Jun, [facility] and [address] [id number] Jun, Perennial allergic rhinitis, unspecified allergic rhinitis trigger J30.89 [facility] [id number] [place] [address] [id number] Jun, [facility] [place] [address], [place] [address]- 3993 Jun, Seizure disorder G40.909 [place] [address] [place] [id number] [place] [address] [id number] Jun, [facility] [id number] [place] [address] [id number] May, [facility] [place] [id number] [place] [address] 64764- 9115 May, [facility] [place] [id number] [place] [address] 34922- 4793 May, [facility] [place] [id number] [place] [address] 59318- 8740 May, [facility] [place] [id number] [place] [address] 08984- 0303 May, History of CVA with residual deficit I69.30 [facility] [place] [id number] [place] [address] 93166- 9859 May, [facility] [place] [id number] [place] [address] 33531- 4201 May, [facility] [place] [address] [place] [address] 39238- 1454 May, [facility] [place] [id number] [place] [address] 43103- 9262 May, Seizure disorder G40.909 [facility] [place] [address] [place] [address] 48935- 4984 May, [facility] [address] [place] [address] May, Back pain M54.9 and Seizure disorder G40.909 [facility] [place] [address] [place] [address] 79275- 8132 Apr, [facility] [place] [address] [place] [address] 43353- 3201 Apr, Back pain M54.9 [facility] [place] [address] [place] [address] 76820- 6929 Mar, [facility] [address] [place] [address] Mar, Insomnia, unspecified type G47.00 [facility] [place] [address] [facility] [id number], [place] [address]- 0947 Mar, [facility] [place] [address] [facility] [id number], [place] [address]- 1665 Feb, [facility] [place] [address] [facility] [id number], [place] [address]- 6866 Feb, [facility] [place] [address] [facility] [id number], [place] [address]- 1991 Feb, [facility] [place] [address] [facility] [id number] [place] [address] 08363- 5471 Jan, [facility] [place] [address] [facility] [id number], [place] [address]- 0204 Jan, [facility] [address] [place] [address] Jan, Seizure disorder G40.909 and Back pain M54.9 [facility] [place] [address] [id number], [place] [address]- 9376 Dec, [facility] [place] [address] [facility] [id number] [address]- 5710 Dec, [facility] [place] [address] [id number], [place] [address]- 6721 Dec, [facility] [place] [address] [facility] [id number] [address]- 5359 Nov, [facility] [place] [address] [facility] [id number] [address]- 5560 Nov, [facility] [place] [address] [facility] [id number], [place] [address]- 5095 Nov, Back pain M54.9 [facility] [place] [address] [id number], [place] [address]- 3126 October, [facility] [place] [id number] [place] [address] 42647- 6208 October, Back pain M54.9 [facility] [place] [id number] [place] [address] 85512- 2706 October, Seizure disorder G40.909 and B12 deficiency E53.8 [facility] [place] [id number] [place] [address] 95973- 1231 Sep, History of CVA with residual deficit I69.30 [facility] [place] [id number] [place] [address] 13386- 2789 Sep, [facility] [place] [id number] [place] [address] 83196- 8415 Sep, [facility] [place] [id number] [place] [address] 06438- 3484 Sep, Back pain M54.9 [facility] [place] [id number] [place] [address] 05502- 9587 Sep, Seizure disorder G40.909 [facility] [place] [id number] [place] [address] 18463- 5896 Aug, Back pain M54.9 [facility] [place] [id number] [place] [address] 14672- 5661 Aug, Seizure disorder G40.909 [facility] [place] [id number] [place] [address] 77095- 9352 16 Aug, 2015 Back pain M54.9 [facility] [place] [id number] [place] [address] 64246- 3852 14 Aug, 2015 Heart failure, unspecified I50.9 [facility] [place] [id number] [place] [address] 55037- 2415 14 Aug, 2015 Medication monitoring encounter Z51.81 [facility] [place] [id number] [place] [address] 04586- 7953 15 Jul, 2015 [facility] [place] [address] [address]- 3254 Jul, Seizure disorder G40.909 [facility] [place] [id number] [place] [address] 67310- 7178 Jul, Back pain M54.9 [facility] [place] [id number] [place] [address] [id number] Jun, [facility] [place] [id number] [place] [address] [phone] Jun, [facility] [place] [id number] [place] [address] 34494- [phone] Jun, Mental status change R41.82 ; History of CVA with residual deficit I69.30 ; Back pain M54.9 and Seizure disorder G40.909 [facility] [place] [id number] [place] [address] [phone] Jun, [facility] [place] [id number] [place] [address] [phone] May, [facility] [place] [id number] [place] [address] [phone] Apr, [facility] [place] [id number] [place] [address] [phone] Apr, Medication monitoring encounter Z51.81 [facility] [place] [id number] [place] [address] [phone] Mar, Vomiting R11.10 [facility] [place] [id number] [place] [address] 38815- [phone] Mar, [facility] [place] [id number] [place] [address] [id number] 18 Feb, 2015 [facility] [place] [id number] [place] [address] [phone]- [phone] 10 Feb, 2015 UTI (urinary tract infection) 599.0 [facility] [place] [address] [id number] [place] [address] 2546 Jan, [facility] [place] [facility] [address] [id number] [place] [address] Jan, [facility] [place] [facility] [address] [id number] [place] [address]- 2546 Jan, [facility] [place] [facility] [address] [id number] [place] [address]- [address]356 Dec, [facility] [place] [facility] [address] [id number] [place] [address]- 2546 Dec, [facility] [place] [facility] [address] [id number] [place] [address]- 2546 Dec, [facility] [place] [facility] [address] [id number] [place] [address] Dec, [facility] [place] [facility] [address] [facility] [id number] [place] [address] 3512 Nov, UNKNOWN Nov, [facility] [place] [facility] [address] [id number] [place] [address]26 October, [facility] [place] [facility] [address] [facility] [id number] [place] [address]156 Sep, [facility] [place] [facility] [address] [facility] [id number] [place] [address]- [address] Sep, [facility] [place] [facility] [address] [id number] [place] [address]- 2546 Aug, [facility] [place] [facility] [address] [id number] [place] [address]- 2546 Aug, [facility] [place] [facility] [address] [id number] [place] [address]- 2546 Jul, [facility] [place] [facility] [address] [id number] [place] [address]- 2546 Jul, [facility] [place] [facility] [address] [id number] [place] [address] Jul, [facility] [place] [facility] [address] [id number] [place] [address]- 6685 Jul, [facility] [place] [facility] [address] [id number] [place] [address]- 1815 Jul, [facility] [place] [facility] [address] [id number] [place] [address]- 5197 Jun, [facility] [place] [facility] [address] [id number] [place] [address]- 3229 Jun, [facility] [place] [facility] [address] [id number] [place] [address]- 8710 Jun, [facility] [place] [facility] [address] [id number] [place] [address]- 5370 Jun, [facility] [place] [facility] [address] [id number] [place] [address]- 1033 Jun, [facility] [place] [facility] [address] [id number] [place] [address]- 2326 Jun, [facility] [place] [facility] [address] [id number] [place] [address]- 3408 Jun, [facility] [place] [facility] [address] [id number] [place] [address]- 7405 Jun, [facility] [place] [facility] [address] [id number] [address] 4[address] Jun, [facility] [place] [facility] [address] [id number], [place] [address]- 3[address] Jun, [facility] [place] [facility] [address] [id number] [place] [address]- 8200 Jun, [facility] [place] [facility] [address] [id number] [place] [address]- 3368 Jun, [facility] [place] [facility] [address] [id number] [place] [address]- 8212 Jun, [facility] [place] [facility] [address] [id number] [place] [address]- 3435 Jun, [facility] [address] [id number] [place] [address]- 9308 Jun, [facility] [address] [id number] [place] [address]- 1645 Jun, [facility] [address] [id number] [place] [address]- 9713 Jun, [facility] [address] [id number] [place] [address]- 4038 Jun, [facility] [address] [id number] [place] [address]- 5445 May, [facility] [address] [id number] [place] [address]- 3819 May, [facility] [address] [id number] [place] [address]- 3404 May, [facility] [address] [id number] [place] [address]- 7417 May, [facility] [address] [id number] [place] [address]- 7208 May, [facility] [address] [id number] [place] [address]- 6851 May, [facility] [address] [id number] [place] [address]- 4582 May, [facility] [address] [id number] [place] [address]- 0690 May, [facility] [address] [id number] [place] [address] May, [facility] [address] [id number] May, [facility] [address] [id number] [place] [address]- 7319 May, [facility] [place] [facility] [address] [id number] [place] [address]- 3897 May, [facility] [place] [facility] [address] [id number] [place] [address] May, [facility] [place] [facility] [address] [id number] [place] [address] Apr, [facility] [place] [facility] [address] [id number] [place] [address]- 0504 Apr, [facility] [place] [facility] [address] [id number] [place] [address] Apr, [facility] [place] [facility] [address] [id number] [place] [address]- 1054 Apr, [facility] [place] [facility] [address] [id number] [place] [address] Apr, [facility] [place] [facility] [address] [id number] [place] [address]- 7007 Apr, [facility] [place] [facility] [address] [id number] [place] [address]- 4079 Mar, [facility] [place] [facility] [address] [id number] [place] [address]- 2331 Mar, [facility] [place] [facility] [address] [id number] [place] [address]- 0919 Mar, [facility] [place] [facility] [address] [id number] [place] [address]- 6423 Mar, [facility] [place] [facility] [address] [id number] [place] [address] Mar, [facility] [place] [facility] [address] [id number] [place] [address] Mar, [facility] [place] [facility] [address] [id number] [place] [address] Feb, [facility] [place] [facility] [address] [id number] [place] [address]- 0557 Feb, 2014 [facility] [place] [facility] [address] [id number] [place] [address]- 0723 Feb, [facility] [place] [facility] [address] [id number] [place] [address]- 1167 Feb, [facility] [place] [facility] [address] [id number] [place] [address]- 4853 Feb, [facility] [place] [facility] [address] [id number] [place] [address]- 2889 Feb, [facility] [place] [facility] [address] [id number] [place] [address]- 0185 Feb, [facility] [place] [facility] [address] [id number] [place] [address]- 9271 Feb, [facility] [place] [facility] [address] [id number] [place] [address]- 9916 Feb, [facility] [place] [facility] [address] [id number], [place] [address]- 9523 Feb, [facility] [address] [id number] Feb, [facility] [place] [facility] [address] [id number], [place] [address]- 1665 Feb, [facility] [place] [facility] [address] [id number], [place] [address]- 3286 Jan, [facility] [place] [facility] [address] [id number], [place] [address]- 2284 Jan, [facility] [place] [facility] [address] [id number][place] [address]- 3811 Dec, [facility] [place] [facility] [address] [id number] [place] [address]- 7424 Dec, [facility] [place] [facility] [address] [id number][place] [address]- 5872 Dec, [facility] [place] [facility] [address] [id number], [place] [address]- 5615 Dec, 2013 [facility] [place] [facility] [address] [id number] [place] [address]- 0222 Dec, 2013 [facility] [place] [facility] [address] [id number] [place] [address]- 8805 Dec, 2013 [facility] [place] [facility] [address] [id number] [place] [address]- 9437 Dec, 2013 [facility] [place] [facility] [address] [id number] [place] [address]- 4057 Dec, 2013 [facility] [place] [facility] [address] [id number] [place] [address]- 6333 Dec, [facility] [place] [facility] [address] [id number] [place] [address]- 5408 Dec, [facility] [place] [facility] [address] [id number] [place] [address]- 8683 Nov, [facility] [place] [facility] [address] [id number] [place] [address]- 1153 Nov, [facility] [place] [facility] [address] [id number] [place] [address]- 8246 Nov, [facility] [place] [facility] [address] [id number] [place] [address]- 3779 Nov, [facility] [place] [facility] [address] [id number] [place] [address]- 2666 Nov, [facility] [place] [facility] [address] [id number] [place] [address]- 0698 Nov, [facility] [place] [facility] [address] [id number] [place] [address]- 1932 Nov, [facility] [place] [facility] [address] [id number] [place] [address]- 9006 Nov, [facility] [place] [facility] [address] [id number] [place] [address]- 0358 Nov, [facility] [place] [facility] [address] [id number] [place] [address]- 7689 Nov, [facility] [place] [facility] [address] [id number] [place] [address]- 8928 Nov, [facility] [place] [facility] [address] [id number] [place] [address]- 0971 Nov, [facility] [place] [facility] [address] [id number] [place] [address]- 1679 Nov, [facility] [place] [facility] [address] [id number] [place] [address]- 9138 Nov, [facility] [place] [facility] [address] [id number] [place] [address]- 5201 October, [facility] [place] [facility] [address] [id number] [place] [address]- 3505 October, [facility] [place] [facility] [address] [id number] [place] [address]- 2004 October, [facility] [place] [facility] [address] [id number] [place] [address]- 0905 October, [facility] [place] [facility] [address] [id number] [place] [address]- 5104 October, [facility] [place] [facility] [address] [id number] [place] [address] October, [facility] [place] [facility] [address] [id number] [place] [address]- 9023 October, [facility] [place] [facility] [address] [id number] [place] [address]- 5176 October, [facility] [place] [facility] [address] [id number] [place] [address]- 8387 October, [facility] [place] [facility] [address] [id number] [place] [address]- 3766 October, [facility] [place] [facility] [address] [id number] [place] [address]- 8702 Sep, [facility] [place] [facility] [address] [id number] [place] [address]- 4623 Sep, [facility] [place] [facility] [address] [id number] [place] [address]- 1556 Sep, [facility] [place] [facility] [address] [id number] [place] [address]- 4689 Sep, [facility] [place] [facility] [address] [id number] [place] [address]- 7812 Sep, [facility] [place] [facility] [address] [id number] [place] [address]- 3845 Sep, [facility] [place] [facility] [address] [id number] [place] [address]- 5961 Sep, [facility] [place] [facility] [address] [id number] [place] [address]- 4614 Sep, [facility] [place] [facility] [address] [id number] [place] [address]- 3461 Sep, [facility] [place] [facility] [address] [id number] [place] [address]- 9941 Sep, [facility] [place] [facility] [address] [id number] [place] [address]- 6365 Aug, [facility] [place] [facility] [address] [id number] [place] [address]- 0765 Aug, [facility] [place] [facility] [address] [id number], [place] [address]- 7792 Aug, [facility] [place] [facility] [address] [id number] [place] [address]- 8093 Aug, [facility] [place] [facility] [address] [id number] [place] [address]- 9202 Aug, [facility] [place] [facility] [address] [id number] [place] [address]- 3755 Aug, [facility] [place] [facility] [address] [id number] [place] [address]- 0651 Aug, [facility] [place] [facility] [address] [id number] [place] [address]- 2472 Aug, [facility] [place] [facility] [address] [id number] [place] [address]- 8266 Aug, [facility] [place] [facility] [address] [id number] [place] [address]- 1440 Jul, [facility] [place] [facility] [address] [id number] [place] [address]- 5567 Jul, [facility] [place] [facility] [address] [id number] [place] [address]- 8193 Jul, [facility] [place] [facility] [address] [id number] [place] [address]- 4350 Jul, [facility] [place] [facility] [address] [facility] [id number] [place] [address]- 9979 Jul, [facility] [place] [facility] [address] [id number] [place] [address]- 0769 Jul, [facility] [place] [facility] [address] [facility] [id number] [place] [address]- 9100 Jul, [facility] [place] [facility] [address] [facility] [id number] [place] [address]- 3427 Jul, [facility] [place] [facility] [address] [facility] [id number] [place] [address]- 1769 Jul, [facility] [place] [facility] [address] [id number] [place] [address]- 3429 Jul, [facility] [place] [facility] [address] [id number] [place] [address]- 0665 Jul, [facility] [place] [facility] [address] [id number] [place] [address]- 8482 Jul, [facility] [place] [facility] [address] [facility] [id number] [place] [address]- 9259 Jul, [facility] [address] [id number] [place] [address]- 5251 Jul, [facility] [place] [facility] [address] [id number] [place]175 Jul, [facility] [place] [facility] [address] [facility] [id number] [place] [address]- 8188 Jul, [facility] [place] [facility] [address] [id number] [place] [address]- 2998 Jun, [facility] [place] [facility] [address] [id number] [place] [address]- 2230 Jun, [facility] [place] [facility] [address] [id number] [place] [address]- 3011 Jun, [facility] [address] [facility] [id number] [place] [address]- 1861 Jun, [facility] [place] [facility] [address] [facility] [id number] [place] [address]- 4464 Jun, [facility] [address] [facility] [id number] [place] [address]- 4028 Jun, [facility] [place] [facility] [address] [facility] [id number] [place] [address]- 1786 May, [facility] [place] [facility] [address] [id number] [place] [address]- 2845 May, [facility] [place] [facility] [address] [id number] [place] [address]- 0631 May, [facility] [place] [facility] [address] [id number] [place] [address]- 1967 May, [facility] [place] [facility] [address] [id number] [place] [address]- 7999 Apr, [facility] [place] [facility] [address] [facility] [id number] [place] [address]- 8382 Apr, [facility] [place] [facility] [address] [id number] [place] [address]- 4193 Apr, [facility] [place] [facility] [address] [id number] [place] [address]- 5157 Apr, [facility] [place] [facility] [address] [id number] [place] [address]- 3299 Apr, [facility] [place] [facility] [address] [id number] [place] [address]- 2506 Apr, [facility] [place] [facility] [address] [id number] [place] [address]- 3448 Apr, [facility] [place] [facility] [address] [id number] [place] [address]- 4026 Apr, [facility] [place] [facility] [address] [id number] [place] [address]- 2438 Apr, [facility] [place] [facility] [address] [id number] [place] [address]- 5785 Apr, [facility] [place] [facility] [address] [id number] [place] [address]- 3919 Apr, [facility] [place] [facility] [address] [id number] [place] [address]- 6303 Apr, [facility] [place] [facility] [address] [id number] [place] [address]- 5845 28 Mar, 2013 [facility] [place] [facility] [address] [id number] [place] [address]- 7607 28 Mar, 2013 [facility] [place] [facility] [address] [id number] [place] [address]- 6550 16 Mar, 2013 [facility] [place] [facility] [address] [id number] [place] [address]- 6725 16 Mar, 2013 [facility] [place] [facility] [address] [id number] [place] [address]- 7793 15 Mar, 2013 [facility] [place] [facility] [address] [id number] [place] [address]- 4592 15 Mar, 2013 [facility] [place] [facility] [address] [id number] [place] [address]- 2631 27 Feb, 2012 [facility] [place] [facility] [address] [id number] [place] [address]- 6055 25 Feb, 2012 [facility] [place] [facility] [address] [id number] [place] [address]- 6956 25 Feb, 2013 [facility] [place] [facility] [address] [id number] [place] [address]- 1371 23 Feb, 2012 [facility] [place] [facility] [address] [id number] [place] [address]- 7784 17 Feb, 2013 [facility] [place] [facility] [address] [id number] [place] [address]- 1862 10 Feb, 2013 [facility] [place] [facility] [address] [id number] [place] [address]- 0844 04 Feb, 2013 [facility] [place] [facility] [address] [id number] [place] [address]- 9563 30 Jan, 2013 [facility] [place] [facility] [address] [id number] [place] [address]- 7811 Jan, [facility] [place] [facility] [address] [id number] [place] [address]- 2237 Jan, [facility] [place] [facility] [address] [id number] [place] [address]- 1679 Jan, [facility] [place] [facility] [address] [id number], [place] [address]- 4530 Jan, [facility] [place] [facility] [address] [id number] [place] [address]- 9090 Jan, [facility] [place] [facility] [address] [id number] [place] [address]- 8991 Jan, [facility] [place] [facility] [address] [id number] [place] [address]- 0787 Dec, [facility] [place] [facility] [address] [id number] [place] [address] Dec, [facility] [address] [id number] [place] [address] Dec, [facility] [address] [id number] [place] [address] Dec, [facility] [address] [id number] [place] [address] Dec, [facility] [address] [id number] [place] [address] Dec, [facility] [address] [id number] [place] [address] Nov, [facility] [address] [id number] [place] [address] Nov, [facility] [address] [id number] [place] [address] Nov, [facility] [address] [id number] [place] [address] Nov, [facility] [address] [id number] [place] [address] October, [facility] [address] [id number] [place] [address] October, [facility] [address] [id number] [place] [address] October, [facility] [place] [facility] [address] [id number] [place] [address] October, [facility] [place] [facility] [address] [id number] [place] [address] Sep, [facility] [place] [facility] [address] [id number] [place] [address] Sep, [facility] [address] [id number] [place] [address] 16 Sep, 2012 [facility] [place] [facility] [address] [id number] [place] [address]- [address] Sep, [facility] [place] [facility] [address] [id number] [place] [address] Sep, [facility] [place] [facility] [address] [id number] [place] [address]- [address] Sep, [facility] [place] [facility] [address] [id number] [place] [address] Sep, [facility] [place] [facility] [address] [id number] [place] [address]- [address] Sep, [facility] [place] [facility] [address] [id number] [place] [address]- [address] Aug, [facility] [place] [facility] [address] [id number] [place] [address] Aug, [facility] [place] [facility] [address] [id number] [place] [address] Aug, [facility] [place] [facility] [address] [id number] [place] [address] 18 Jul, 2012 [facility] [place] [facility] [address] [id number] [place] [address] 08 Jul, 2012 [facility] [place] [facility] [address] [id number] [place] [address] Jul, [facility] [place] [facility] [address] [id number], [place] [address] Jul, [facility] [place] [facility] [address] [id number] [place] [address]- [address] 05 Jul, 2012 [facility] [place] [facility] [address] [id number] [place] [address] Jun, [facility] [place] [facility] [address] [id number] [place] [address]- [address] Jun, [facility] [place] [facility] [address] [id number], [place] [address] 08 Jun, 2012 [facility] [place] [facility] [address] [id number] [place] [address] May, [facility] [place] [facility] [address] [id number] [place] [address]- [address] May, [facility] [place] [facility] [address] [facility] [id number] [place] [address]- 49[address] May, [facility] [place] [facility] [address] [id number] [place] [address]- 3080 May, [facility] [place] [facility] [address] [id number] [place] [address]647 May, [facility] [place] [facility] [address] [id number] [place] [address] May, [facility] [place] [facility] [address] [id number] [address] May, [facility] [place] [facility] [address] [id number] [place] [address]- [address]329 Apr, [facility] [place] [facility] [address] [id number] [place] [address]- 7084 Apr, [facility] [place] [facility] [address] [facility] [id number] [place] [address]- [address]693 Apr, [facility] [place] [facility] [address] [id number], [place] [address] Apr, [facility] [place] [facility] [address] [id number], [place] [address]- [address] Apr, [facility] [place] [facility] [address] [id number] [place] [address]- 8069 Apr, [facility] [place] [facility] [address] [facility] [id number] [place] [address]- [address] 13 Apr, 2012 [facility] [place] [facility] [address] [id number], [place] [address] 13 Apr, 2012 [facility] [place] [facility] [address] [id number] [place] [address] 2542 Apr, [facility] [place] [facility] [address] [id number] [place] [address]- 6616 Apr, [facility] [place] [facility] [address] [id number] [place] [address] 2546 Apr, [facility] [place] [facility] [address] [id number] [place] [address]- 3524 Mar, [facility] [place] [facility] [address] [id number] [place] [address]- 7027 Mar, [facility] [place] [facility] [address] [id number] [place] [address]- 7340 Mar, [facility] [place] [facility] [address] [id number] [place] [address] Mar, [facility] [place] [facility] [address] [id number] [place] [address]- 4599 Mar, [facility] [place] [facility] [address] [id number] [place] [address]- 0162 Mar, [facility] [place] [facility] [address] [id number] [place] [address]- 2967 Mar, [facility] [place] [facility] [address] [id number] [place] [address] Mar, [facility] [place] [facility] [address] [id number] [place] [address]- 6128 Mar, [facility] [place] [facility] [address] [id number] [place] [address]- 7834 16 Mar, 2012 [facility] [place] [facility] [address] [id number] [place] [address]- 0424 Mar, [facility] [place] [facility] [address] [id number] [place] [address]- [address] 2012 [facility] [place] [facility] [address] [id number] [place] [address]- 4082 27 Feb, 2012 [facility] [place] [facility] [address] [id number] [place] [address]- [address]753 27 Feb, 2012 [facility] [place] [facility] [address] [id number] [place] [address]- 9816 26 Feb, 2012 [facility] [place] [facility] [address] [id number] [place] [address]- 5226 24 Feb, 2012 [facility] [place] [facility] [address] [id number] [place] [address]- 1849 19 Feb, 2012 [facility] [place] [facility] [address] [id number] [place] [address]- 1500 18 Feb, 2012 [facility] [place] [facility] [address] [address] [id number] [place] [address] 18 Feb, 2012 [facility] [place] [facility] [address] [id number] [place] [address] Feb, [facility] [place] [facility] [address] [id number] [place] [address] Jan, [facility] [place] [facility] [address] [id number] [place] [address] Jan, [facility] [place] [facility] [address] [id number] [place] [address] Jan, [facility] [place] [facility] [address] [id number] [place] [address] Jan, [facility] [place] [facility] [address] [id number] [address] Dec, [facility] [place] [facility] [address] [id number] [place] [address] Dec, [facility] [place] [facility] [address] [id number] [place] [address] Dec, [facility] [place] [facility] [address] [id number] [place] [address] Dec, [facility] [place] [facility] [address] [id number] [place] [address] 24 Dec, 2011 [facility] [place] [facility] [address] [id number] [place] [address] Dec, 2011 [facility] [place] [facility] [address] [id number] [place] [address]46 Dec, [facility] [place] [facility] [address] [id number] [place] [address] Dec, 2011 [facility] [place] [facility] [address] [id number] [place] [address] Dec, 2011 [facility] [place] [facility] [address] [id number] [place] [address] Dec, [facility] [place] [facility] [address] [id number] [place] [address] Dec, [facility] [place] [facility] [address] [id number] [place] [address]- 2470 Dec, [facility] [place] [facility] [address] [id number] [place] [address] 278[address] Dec, [facility] [place] [facility] [address] [id number] [place] [address] 134[address] Dec, [facility] [place] [facility] [address] [id number] [place] [address] Nov, [facility] [place] [facility] [address] [id number] [place] [address] 14 Nov, 2011 [facility] [place] [facility] [address] [id number] [place] [address] Nov, [facility] [place] [facility] [address] [id number] [place] [address]293 Nov, [facility] [place] [facility] [address] [id number] [place] [address] 4086 Nov, [facility] [place] [facility] [address] [id number] [place] [address] Nov, [facility] [place] [facility] [address] [id number] [place] [address] October, [facility] [address] [id number] [place] [address] October, [facility] [address] [id number] [place] [address] October, [facility] [address] [id number] [place] [address]36 October, [facility] [address] [id number] [place] [address] Sep, [facility] [address] [id number] [place] [address] Sep, [facility] [address] [id number] [place] [address] 1616 Sep, [facility] [address] [id number] [place] [address] 1372 Sep, [facility] [address] [id number] [place] [address]- 6565 Sep, [facility] [address] [id number] [place] [address] 1807 Aug, [facility] [address] [id number] [place] [address] Aug, [facility] [address] [id number] [place] [address] 99[address] Aug, [facility] [address] [id number] [place] [address]- 1445 Aug, [facility] [place] [facility] [address] [id number] [place] [address]- [address] 13 Aug, 2011 [facility] [address] [id number] [place] [address]- [address]146 Aug, [facility] [address] [id number], [place] [address] Aug, [facility] [address] [id number], [place] [address] Jul, [facility] [address] [id number], [place] [address] Jul, [facility] [address] [facility] [id number], [place] [address] Jul, [facility] [address] [facility] [id number], [place] [address] Jul, [facility] [address] [facility] [id number][place] [address] Jun, [address] [id number] Jun, [facility] [address] [facility] [id number], [place] [address]- [address]149 Jun, [facility] [address] [facility] [id number], [place] [address]- 68[address] Jun, [facility] [address] [id number], [place] [address] Jun, [facility] [address] [facility] [id number], [place] [address]- 8868 Jun, [facility] [address] [facility] [id number], [place] [address]- 69[address] Jun, [facility] [place] [facility] [address] [id number], [place] [address] Jun, [facility] [place] [facility] [address] [facility] [id number], [place] [address]- 4899 May, [facility] [address] [facility] [id number], [place] [address]- 8670 May, [facility] [place] [facility] [address] [facility] [id number], [place] [address]- 6982 May, [facility] [address] [id number] [place] [address] May, [facility] [place] [facility] [address] [id number] [place] [address] 4439 May, [facility] [place] [facility] [address] [id number] [place] [address] May, [facility] [place] [facility] [address] [id number] [place] [address]- 7276 May, [facility] [place] [facility] [address] [id number] [place] [address] 2541 Apr, [facility] [place] [facility] [address] [id number] [place] [address]- 3756 Apr, [facility] [place] [facility] [address] [id number] [place] [address]- 8607 Apr, [facility] [place] [facility] [address] [id number] [place] [address]- 3343 Mar, [facility] [place] [facility] [address] [id number] [place] [address]- 4262 Mar, [facility] [place] [facility] [address] [id number] [place] [address]- 4067 14 Mar, 2011 [facility] [place] [facility] [address] [id number] [place] [address]- 4732 Mar, [facility] [place] [facility] [address] [id number] [place] [address]- 1794 10 Mar, 2011 [facility] [place] [facility] [address] [id number] [place] [address]- 0254 Mar, [facility] [place] [facility] [address] [id number] [place] [address]- 4552 Mar, [facility] [place] [facility] [address] [id number] [place] [address]- 5843 Jan, [facility] [place] [facility] [address] [id number] [place] [address]- [address]125 27 May, 2010 [facility] [place] [facility] [address] [id number] [place] [address]- 4388 21 May, 2010 [facility] [place] [facility] [address] [id number] [place] [address]- 5626 May, [facility] [place] [facility] [address] [id number] [place] [address]- 4861 13 May, 2010 [facility] [place] [facility] [address] [id number] [place] [address]- 3303 10 May, 2010 [facility] [address] [id number] [place] [address]- 2625 06 May, 2010 [facility] [place] [facility] [address] [id number] [place] [address]- 2338 29 Apr, 2010 [facility] [address] [id number] [place] [address]- 5667 26 Apr, 2010 [facility] [address] [id number] [place] [address]- 4997 Apr, [facility] [address] [id number] [place] [address]- 9517 18 Apr, 2010 [facility] [address] [id number] [place] [address]- 4334 15 Apr, 2010 [facility] [place] [facility] [address] [id number] [place] [address]- 5323 Apr, [facility] [place] [facility] [address] [id number], [place] [address]- 3026 Apr, [facility] [place] [facility] [address] [id number] [place] [address]- 4704 Apr, [facility] [place] [facility] [address] [id number] [place] [address]- 2541 Apr, [facility] [place] [facility] [address] [id number] [place] [address]- 5536 Apr, [facility] [place] [facility] [address] [id number], [place] [address]- 2546 Mar, [facility] [place] [address] [facility] [id number] [address] Mar, [facility] [place] [address] [id number], [place] [address]286 Mar, [facility] [place] [address] [facility] [id number], [place] [address]- 3734 Mar, [facility] [place] [address] [id number], [place] [address]- [address]377 Mar, [facility] [place] [address] [facility] [id number], [place] [address]- 1814 Dec, [facility] [place] [address] [id number], [place] [address] Nov, IMMUNIZATIONS No Known Immunizations SOCIAL HISTORY Never Assessed REASON FOR VISIT Refill request Fentanyl PLAN OF CARE VITAL SIGNS MEDICATIONS Medication Instructions Dosage Frequency Start Date End Date Duration Status Fentanyl 75 MCG/HR Transdermal every 72 hours 1 patch to skin Feb, Mar, 30 days Active RESULTS No Results [...]
[2018-02-04 13:37] LABS: BILIRUBIN,URINE NEGATIVE (NEGATIVE); CLARITY,URINE CLEAR; COLOR,URINE YELLOW; GLUCOSE, URINE (UA) NEGATIVE (NEGATIVE); KETONES,URINE NEGATIVE (NEGATIVE); LEUKOCYTE ESTERASE ,URINE 2+ (NEGATIVE); NITRITE,URINE POSITIVE (NEGATIVE); PH,URINE 8 (5-9); PROTEIN,URINE 2+ (NEGATIVE); UROBILINOGEN,URINE NORMAL (NORMAL)
--- OUTSIDE RECORDS SUMMARY | 2018-02-04 13:38 | XMS REPORT ---
Author Author KATHYCRICKETA Organization [facility] Address [address] [place] [address] Care Team Providers Care Textile Broker Name Role Phone ESTRELLITACRICKET ADANA Unavailable PROBLEMS Type Condition ICD9-CM Code XNC67-JT Code Onset Dates Condition Status SNOMED Code Problem History of colon polyps Z86.010 Active 848643130 Problem Factitious disorder imposed on self, recurrent episode F68.10 Active 70962828 Problem Anemia, unspecified type D64.9 Active 162854121 Problem Allergic state, subsequent encounter T78.40XD Active 689309075 Problem Unspecified psychosis not due to a substance or known physiological condition F29 Active 26318923 Problem Age-related osteoporosis without current pathological fracture M81.0 Active 67822896 Problem Personality disorder F60.9 Active 70177098 Problem Iron deficiency anemia, unspecified iron deficiency anemia type D50.9 Active 80565758 Problem Anxiety F41.9 Active 20108280 Problem History of CVA with residual deficit I69.30 Active 185573120 Problem Insomnia, unspecified type G47.00 Active 456056678 Problem Perennial allergic rhinitis, unspecified allergic rhinitis trigger J30.89 Active 090077237 Problem Seizure disorder G40.909 Active 065748472 Problem Chronic kidney disease, unspecified stage N18.9 Active 636705473 Problem Back pain M54.9 Active 374973725 Problem Gastroesophageal reflux disease without esophagitis K21.9 Active 336367702 ALLERGIES No Information ENCOUNTERS Encounter Location Date Diagnosis [facility] [address] [facility] [id number] [address] Dec, [facility] [address] [id number] [address] 3306 Nov, [facility] [address] [facility] [id number] [place] [address] 26[address] Nov, [facility] [id number] [place] [address] 88986- 2152 October, [facility] [id number] [place] [address] 19225- 8209 October, Seizure disorder G40.909 ; Back pain M54.9 and Allergic state, subsequent encounter T78.40XD [facility] [id number] [place] [address] 25265- 0250 October, [facility] [id number] [place] [address] 67460- 2102 Sep, Back pain M54.9 [facility] [id number] [place] [address] 61600- 4875 Sep, Unspecified psychosis not due to a substance or known physiological condition F29 ; Personality disorder F60.9 and Factitious disorder imposed on self, recurrent episode F68.10 [facility] [id number] [place] [address] 16733- 6131 Sep, [facility] [id number] [place] [address] 72487- 2854 Sep, [facility] [id number] [place] [address] 92060- 8163 Sep, [facility] [id number] [place] [address] 74874- 3336 Sep, [facility] [id number] [place] [address] 12628- 8622 Aug, [facility] [id number] [place] [address] 69701- 8898 Aug, Back pain M54.9 [facility] [id number] [place] [address] 77360- 1558 Aug, Factitious disorder imposed on self, recurrent episode F68.10 ; Personality disorder F60.9 ; Insomnia, unspecified type G47.00 and Anxiety F41.9 [facility] [address] [id number] [address] 0686 Aug, Back pain M54.9 ; Iron deficiency anemia, unspecified iron deficiency anemia type D50.9 ; Chronic kidney disease, unspecified stage N18.9 and Breast cancer screening Z12.31 [facility] [place] [id number] [place] [id number] Jul, Back pain M54.9 [facility] [place] [address] [id number] [id number] Jul, [facility] [place] [address] [id number] [id number] Jul, [facility] [place] [address] [id number] [address] Jun, Back pain M54.9 [facility] [place] [id number] [place] [id number] Jun, [facility] [place] [id number] [place] [address] [id number] Jun, Back pain M54.9 [facility] [address] [id number] [address] 5317 Jun, Back pain M54.9 ; Seizure disorder G40.909 and Age-related osteoporosis without current pathological fracture M81.0 [facility] [place] [address] [id number] [place] [id number] May, [facility] [address] [id number] [address] 6353 May, Back pain M54.9 [facility] [address] [id number] [address] Apr, Back pain M54.9 ; Encounter for immunization Z23 ; Gastroesophageal reflux disease without esophagitis K21.9 ; Age-related osteoporosis without current pathological fracture M81.0 and Chronic pruritus L29.9 [facility] [address] [id number] 3[address] Apr, History of CVA with residual deficit I69.30 [facility] [address]00565100[place] [address] 1784 Apr, Factitious disorder imposed on self, recurrent episode F68.10 and Personality disorder F60.9 [facility] [place] [id number] [place] [address] [id number] Apr, Back pain M54.9 [facility] [id number] [place] [address] 26251- 9813 Mar, Factitious disorder imposed on self, recurrent episode F68.10 [facility] [id number] [place] [address] 85254- 3835 Mar, [facility] [place] [id number] [place] [address] [id number] Mar, [facility] [place] [id number] [place] [address] [id number] Mar, Back pain M54.9 [facility] [id number] [place] [address] 12311- 1961 Mar, Back pain M54.9 ; Seizure disorder G40.909 and Age-related osteoporosis without current pathological fracture M81.0 [facility] [id number] [place] [address] 23932- 7950 Feb, History of CVA with residual deficit I69.30 [facility] [id number] [place] [address] 39209- 7320 Feb, Factitious disorder imposed on self, recurrent episode F68.10 and Personality disorder F60.9 [facility] [id number] [place] [address] 11341- 1667 15 Feb, 2017 Back pain M54.9 [facility] [id number] [place] [address] 37516- 7144 Feb, [facility] [id number] [place] [address] 16337- 7973 Jan, [facility] [address] [id number] Jan, Age- related osteoporosis without current pathological fracture M81.0 and Allergic state, subsequent encounter T78.40XD [facility] [address]00565100[place] [address]- 5845 Jan, Factitious disorder imposed on self, recurrent episode F68.10 and Personality disorder F60.9 [facility] [id number] [place] [address] 19328- 2536 Dec, Back pain M54.9 [facility] [id number] [place] [address] 12005- 7497 Dec, Personality disorder F60.9 and Factitious disorder imposed on self, recurrent episode F68.10 [facility] [place] [address] [id number] [id number] Dec, Back pain M54.9 [facility] [id number] [place] [address] [id number] Dec, [facility] [id number] [place] [address] [id number] Dec, [facility] [id number] [place] [address] 84155- 0347 Dec, [facility] [address]65[address] [address]- 7463 Nov, [facility] [id number] [place] [address] 96524- 4907 Nov, Back pain M54.9 ; Anemia, unspecified type D64.9 and History of colon polyps Z86.010 [facility] [id number] [place] [address] 78478- 0062 Nov, Back pain M54.9 [facility] [address] [id number] [id number] October, Back pain M54.9 [facility] [address] [address] October, Back pain M54.9 and Gastroesophageal reflux disease without esophagitis K21.9 [facility] [id number] [place] [id number] Sep, [facility] [address] [facility] [id number] [place] [address]- 2406 Sep, [facility] [address]65100[place] [address]- 0743 Sep, [facility] [address]65100[place] [address]- 2572 Sep, [facility] [id number] [place] [address] 40796- 5812 Sep, [facility] [id number] [place] [address] 57514- 6588 Sep, Seizure disorder G40.909 [facility] [id number] [place] [address] 93085- 3941 Sep, Back pain M54.9 [facility] [address]65[address] [address]- 6211 Sep, [facility] [address] [address]- 1589 Aug, Back pain M54.9 [facility] [address] [address] 4312 Aug, Seizure disorder G40.909 [facility] [address] [id number] [place] [id number] Aug, [facility] [id number] [place] [id number] 16 Aug, 2016 Back pain M54.9 [facility] [address] [id number] [id number] 14 Aug, 2016 Back pain M54.9 [facility] [id number] [place] [id number] Aug, Back pain M54.9 [facility] [address] [id number] Jul, Weakness R53.1 [place] [id number] [place] [address] 51714- 2249 Jul, Seizure disorder G40.909 [place] [id number] [place] [address] 45540- 3186 Jul, [place] [id number] [place] [address] 15450- 9077 Jul, Breast cancer screening Z12.39 [place] [id number] [place] [address] 580780- 8486 Jul, [place] [id number] [place] [address] 34642- 8770 Jul, [place] [id number] [place] [address] 35536- 2400 Jul, [place] [id number] [place] [address] 42924- 7939 Jul, Seizure disorder G40.909 ; Fatigue, unspecified type R53.83 ; Perennial allergic rhinitis, unspecified allergic rhinitis trigger J30.89 and Chronic kidney disease, unspecified stage N18.9 [place] [id number] [place] [address] 21812- 1995 Jul, [place] [id number] [place] [address] 66566- 1124 Jul, Seizure disorder G40.909 [place] [id number] [place] [address] 96113- 5982 Jun, [place] [id number] [place] [address] 48883- 8103 Jun, [facility] [address] [place] [id number] Jun, Perennial allergic rhinitis, unspecified allergic rhinitis trigger J30.89 [facility] [place] [id number] [place] [address] [id number] Jun, [facility] [id number] [place] [address] 89320- 4465 Jun, Seizure disorder G40.909 [facility] [place] [id number] [place] [address] [id number] Jun, [facility] [place] [id number] [place] [address] [id number] May, [facility] [id number] [place] [address] 21690- 6970 May, [facility] [id number] [place] [address] 52640- 7461 May, [facility] [id number] [place] [address] 05769- 8658 May, [facility] [id number] [place] [address] 25963- 0642 May, History of CVA with residual deficit I69.30 [facility] [id number] [place] [address] 70425- 4929 May, [facility] [id number] [place] [address] 36369- 8224 May, [facility] [id number] [place] [address] 90299- 8071 May, [facility] [id number] [place] [address] 48104- 2685 May, Seizure disorder G40.909 [facility] [id number] [place] [address] 15988- 6880 May, [facility] [address] [address] May, Back pain M54.9 and Seizure disorder G40.909 [facility] [id number] [place] [address] 06561- 2275 Apr, [facility] [address] [facility] [id number] [place] [address]- 4781 Apr, Back pain M54.9 [facility] [address] [facility] [id number] [place] [address] 92950- 3109 Mar, [facility] [address] [place] [address] Mar, Insomnia, unspecified type G47.00 [facility] [address] [facility] [id number] [place] [address]- 1116 Mar, [facility] [address] [facility] [id number] [place] [address] 36300- 0211 Feb, [facility] [address] [facility] [id number] [place] [address] 29551- 5998 Feb, [facility] [id number] [place] [address] 65299- 0960 Feb, [facility] [address] [facility] [id number] [place] [address]- 1279 Jan, [facility] [id number] [place] [address] 52746- 6106 Jan, [facility] [address] [place] [address] Jan, Seizure disorder G40.909 and Back pain M54.9 [facility] [address] [facility] [id number] [place] [address]- 0458 Dec, [facility] [address] [facility] [id number] [place] [address]- 2671 Dec, [facility] [address] [facility] [id number] [place] [address]- 3568 Dec, [facility] [address] [facility] [id number] [place] [address]- 9208 Nov, [facility] [address] [id number] [address]- 0415 Nov, [facility] [address] [place] [address] 67918- 6685 Nov, Back pain M54.9 [facility] [id number] [place] [address] 75807- 7069 October, [facility] [id number] [place] [address] 39926- 9386 October, Back pain M54.9 [facility] [id number] [place] [address] 38812- 4278 October, Seizure disorder G40.909 and B12 deficiency E53.8 [facility] [id number] [place] [address] 97347- 4053 Sep, History of CVA with residual deficit I69.30 [facility] [id number] [place] [address] 40741- 2300 Sep, [facility] [id number] [place] [address] 03499- 2525 Sep, [facility] [id number] [place] [address] 10042- 2891 Sep, Back pain M54.9 [facility] [id number] [place] [address] 05765- 8130 Sep, Seizure disorder G40.909 [facility] [id number] [place] [address] 81146- 5765 Aug, Back pain M54.9 [facility] [id number] [place] [address] 86817- 3620 18 Aug, 2015 Seizure disorder G40.909 [facility] [id number] [place] [address] 18698- 2006 16 Aug, 2015 Back pain M54.9 [facility] [id number] [place] [address] 48728- 2366 14 Aug, 2015 Heart failure, unspecified I50.9 [facility] [id number] [place] [address] 46551- 5954 14 Aug, 2015 Medication monitoring encounter Z51.81 [facility] [id number] [place] [address] 38463- 8065 15 Jul, 2015 [facility] [id number] [place] [address] 27293- 5787 09 Jul, 2015 Seizure disorder G40.909 [facility] [id number] [place] [address] 90528- 0160 05 Jul, 2015 Back pain M54.9 [facility] [id number] [place] [address] 59633- 8362 Jun, [facility] [id number] [place] [address] 08762- 5800 Jun, [facility] [address] 88706- 6545 Jun, Mental status change R41.82 ; History of CVA with residual deficit I69.30 ; Back pain M54.9 and Seizure disorder G40.909 [facility] [id number] [place] [address] 95979- 1391 Jun, [facility] [id number] [place] [address] 53090- 5045 May, [facility] [id number] [place] [address] 65074- 6243 Apr, [facility] [id number] [place] [address] 97802- 6419 Apr, Medication monitoring encounter Z51.81 [facility] [id number] [place] [address] 55239- 3167 Mar, Vomiting R11.10 [facility] [id number] [place] [address] 86424- 6656 Mar, [facility] [address] [place] [address]- 1568 Feb, [facility] [address] [id number] [place] [address]- 8753 Feb, UTI (urinary tract infection) 599.0 [facility] [address] [id number] [place] [address]- 3756 Jan, [facility] [address] [id number] [place] [address]- 5860 Jan, [facility] [address] [id number] [place] [address]- 1173 Jan, [facility] [address] [id number] [place] [address]- 0217 Dec, [facility] [address] [id number] [place] [address]- 4610 Dec, [facility] [address] [id number] [place] [address]- 0685 Dec, [facility] [address] [id number] [place] [address]- 2646 Dec, [facility] [address] [id number] [place] [address]- 3871 Nov, UNKNOWN Nov, [facility] [address] [id number] [place] [address]- 6276 October, [facility] [address] [id number] [place] [address]- 6837 Sep, [facility] [address] [id number] [place] [address]- 6787 Sep, [facility] [address] [id number] [place] [address]- 5846 Aug, [facility] [place] [facility] [address] [id number] [place] [address]- 2879 Aug, [facility] [address] [id number] [place] [address]- 2139 19 Jul, 2014 [facility] [place] [facility] [address] [id number] [place] [address]- 4566 Jul, [facility] [place] [facility] [address] [id number] [place] [address] Jul, [facility] [place] [facility] [address] [id number] [place] [address] Jul, [facility] [place] [facility] [address] [id number] [place] [address] Jul, [facility] [place] [facility] [address] [id number] [place] [address] Jun, [facility] [place] [facility] [address] [id number] [place] [address] Jun, [facility] [place] [facility] [address] [id number] [place] [address] Jun, [facility] [place] [facility] [address] [id number] [place] [address] Jun, [facility] [place] [facility] [address] [id number] [place] [address] Jun, [facility] [place] [facility] [address] [id number] [place] [address] Jun, [facility] [place] [facility] [address] [id number] [place] [address] Jun, [facility] [place] [facility] [address] [id number] [place] [address] Jun, [facility] [place] [facility] [address] [id number] [place] [address] Jun, [facility] [place] [facility] [address] [id number] [place] [address] Jun, [facility] [place] [facility] [address] [id number] [place] [address] Jun, [facility] [place] [facility] [address] [id number] [place] [address] Jun, [facility] [place] [facility] [address] [id number] [place] [address] Jun, [facility] [place] [facility] [address] [id number] [place] [address] Jun, [facility] [place] [facility] [address] [id number] [place] [address] Jun, [facility] [place] [facility] [address] [id number] [place] [address] Jun, [facility] [place] [facility] [address] [id number] [place] [address] Jun, [facility] [place] [facility] [address] [id number] [place] [address] Jun, [facility] [place] [facility] [address] [id number] [place] [address] May, [facility] [place] [facility] [address] [id number] [place] [address] 30 May, 2014 [facility] [place] [facility] [address] [id number] [place] [address] 30 May, 2014 [facility] [place] [facility] [address] [id number] [place] [address] 30 May, 2014 [facility] [place] [facility] [address] [id number] [place] [address] 19 May, 2014 [facility] [place] [facility] [address] [id number] [place] [address] 16 May, 2014 [facility] [place] [facility] [address] [id number] [place] [address] 16 May, 2014 [facility] [place] [facility] [address] [id number] [place] [address] 15 May, 2014 [facility] [place] [facility] [address] [id number] [place] [address] May, [facility] [address] [facility], [place] [id number] May, [facility] [place] [facility] [address] [id number] [place] [address] May, [facility] [place] [facility] [address] [id number] [place] [address] 8485 May, [facility] [place] [facility] [address] [id number] [place] [address] 4101 May, [facility] [place] [facility] [address] [id number] [place] [address] 6882 Apr, [facility] [place] [facility] [address] [id number] [place] [address] 5154 Apr, [facility] [place] [facility] [address] [id number] [place] [address] 0201 Apr, [facility] [place] [facility] [address] [id number] [place] [address] 9888 Apr, [facility] [place] [facility] [address] [id number] [place] [address] 7014 Apr, [facility] [place] [facility] [address] [id number] [place] [address] 7102 Apr, [facility] [place] [facility] [address] [id number] [place] [address] 2790 Mar, [facility] [place] [facility] [address] [id number] [place] [address] 7915 Mar, [facility] [place] [facility] [address] [id number] [place] [address] 0932 Mar, [facility] [place] [facility] [address] [id number] [place] [address]- 0325 Mar, [facility] [place] [facility] [address] [id number] [place] [address] 5846 Mar, [facility] [place] [facility] [address] [id number] [place] [address] 6557 08 Mar, 2014 [facility] [place] [facility] [address] [id number] [place] [address]- 7330 24 Feb, 2013 [facility] [place] [facility] [address] [id number] [place] [address] 0507 24 Feb, 2014 [facility] [place] [facility] [address] [id number] [place] [address]- 2352 Feb, [facility] [place] [facility] [address] [id number] [place] [address]- 9631 Feb, [facility] [place] [facility] [address] [id number] [place] [address]- 9246 Feb, [facility] [place] [facility] [address] [id number] [place] [address]- 0953 Feb, [facility] [place] [facility] [address] [id number] [place] [address]- 2821 Feb, [facility] [place] [facility] [address] [id number] [place] [address] 8134 Feb, [facility] [place] [facility] [address] [id number] [place] [address]- 8221 Feb, [facility] [place] [facility] [address] [id number] [place] [address]- 2666 Feb, [facility] [address] [place] [id number] Feb, [facility] [place] [facility] [address] [id number] [place] [address] 20[address] Feb, [facility] [place] [facility] [address] [id number] [place] [address]- 0044 Jan, [facility] [place] [facility] [address] [id number] [place] [address]- 8290 Jan, [facility] [place] [facility] [address] [id number] [place] [address]- 0182 Dec, [facility] [place] [facility] [address] [id number] [place] [address]- 4816 Dec, 2013 [facility] [place] [facility] [address] [id number] [place] [address]- 7880 Dec, [facility] [place] [facility] [address] [id number] [place] [address]- 7829 Dec, 2013 [facility] [place] [facility] [address] [id number] [place] [address] 4601 Dec, 2013 [facility] [place] [facility] [address] [id number] [place] [address]- 7782 Dec, 2013 [facility] [place] [facility] [address] [id number] [place] [address]- 9421 Dec, [facility] [place] [facility] [address] [id number] [place] [address]- 8384 Dec, [facility] [place] [facility] [address] [id number] [place] [address]- 0268 Dec, [facility] [place] [facility] [address] [id number] [place] [address]- 2108 Dec, [facility] [place] [facility] [address] [id number] [place] [address] 3226 Nov, [facility] [place] [facility] [address] [id number] [place] [address]- 0240 Nov, [facility] [place] [facility] [address] [id number] [place] [address] 0391 Nov, [facility] [place] [facility] [address] [id number] [place] [address]- 5812 Nov, [facility] [place] [facility] [address] [id number] [place] [address]- 3722 Nov, [facility] [place] [facility] [address] [id number] [place] [address]- 7004 Nov, [facility] [place] [facility] [address] [id number] [place] [address] Nov, [facility] [place] [facility] [address] [id number] [place] [address]- 4777 Nov, [facility] [place] [facility] [address] [id number] [place] [address]- 8186 Nov, [facility] [place] [facility] [address] [id number] [place] [address]- 7094 Nov, [facility] [place] [facility] [address] [id number] [place] [address]- 0910 Nov, [facility] [place] [facility] [address] [id number] [place] [address]- 1149 Nov, [facility] [place] [facility] [address] [id number] [place] [address]- 3761 Nov, [facility] [place] [facility] [address] [id number] [place] [address]- 8487 Nov, [facility] [place] [facility] [address] [id number] [place] [address] 9986 October, [facility] [place] [facility] [address] [id number] [place] [address]- 4155 October, [facility] [place] [facility] [address] [id number] [place] [address]- 3957 October, [facility] [place] [facility] [address] [id number] [place] [address] 7944 October, [facility] [place] [facility] [address] [id number] [place] [address] 7393 October, [facility] [place] [facility] [address] [id number] [place] [address] 8960 October, [facility] [place] [facility] [address] [id number] [place] [address]- 4932 October, [facility] [place] [facility] [address] [id number] [place] [address]- 7134 October, [facility] [place] [facility] [address] [id number] [place] [address] 8259 October, [facility] [place] [facility] [address] [id number] [place] [address]- 7304 October, [facility] [place] [facility] [address] [id number] [place] [address]- 0265 Sep, [facility] [place] [facility] [address] [id number] [place] [address]- 5685 Sep, [facility] [place] [facility] [address] [id number] [place] [address]- 9028 Sep, [facility] [place] [facility] [address] [id number] [place] [address]- 9688 Sep, [facility] [place] [facility] [address] [id number] [place] [address]- 5962 Sep, [facility] [place] [facility] [address] [id number] [place] [address]- 8802 Sep, [facility] [place] [facility] [address] [id number] [place] [address]- 2520 Sep, [facility] [place] [facility] [address] [id number] [place] [address]- 6812 Sep, [facility] [place] [facility] [address] [id number] [place] [address]- 5274 Sep, [facility] [place] [facility] [address] [id number] [place] [address]- 5027 Sep, [facility] [place] [facility] [address] [id number] [place] [address]- 2946 Aug, [facility] [place] [facility] [address] [id number] [place] [address]- 6091 Aug, [facility] [place] [facility] [address] [id number] [place] [address]- 2379 Aug, [facility] [place] [facility] [address] [id number] [place] [address]- 2290 Aug, [facility] [place] [facility] [address] [id number] [place] [address]- 8591 06 Aug, 2013 [facility] [place] [facility] [address] [id number] [place] [address]- 5528 Aug, [facility] [place] [facility] [address] [id number] [place] [address]- 5674 Aug, [facility] [place] [facility] [address] [id number] [place] [address]- 5072 Aug, [facility] [place] [facility] [address] [id number] [place] [address]- 9531 Aug, [facility] [place] [facility] [address] [id number] [place] [address]- 5027 Jul, [facility] [place] [facility] [address] [id number] [place] [address]- 7128 Jul, [facility] [place] [facility] [address] [id number] [place] [address]- 2945 Jul, [facility] [place] [facility] [address] [id number] [place] [address]- 5000 Jul, [facility] [place] [facility] [address] [id number] [place] [address]- 2115 Jul, [facility] [place] [facility] [address] [id number] [place] [address]- 6018 Jul, [facility] [place] [facility] [address] [id number] [place] [address]- 2158 Jul, [facility] [place] [facility] [address] [id number] [place] [address]- 9306 Jul, [facility] [place] [facility] [address] [id number] [place] [address]- 5036 Jul, [facility] [place] [facility] [address] [id number] [place] [address]- 0655 Jul, [facility] [place] [facility] [address] [id number] [place] [address]- 5319 06 Jul, 2013 [facility] [place] [facility] [address] [id number] [place] [address]- 5676 Jul, [facility] [place] [facility] [address] [id number] [place] [address]- 3356 Jul, [facility] [place] [facility] [address] [id number] [place] [address]- 6126 Jul, [facility] [place] [facility] [address] [id number] [place] [address]- 7991 Jul, [facility] [place] [facility] [address] [id number] [place] [address]- 3779 Jul, [facility] [place] [facility] [address] [id number] [place] [address]- 2323 Jun, [facility] [place] [facility] [address] [id number] [place] [address]- 0029 Jun, [facility] [place] [facility] [address] [id number] [place] [address]- 1955 Jun, [facility] [place] [facility] [address] [id number] [place] [address]- 9700 Jun, [facility] [place] [facility] [address] [facility] [id number] [place] [address]- 9046 Jun, [facility] [place] [facility] [address] [id number] [place] [address]- 4899 Jun, [facility] [place] [facility] [address] [id number] [place] [address]- 0107 May, [facility] [place] [facility] [address] [id number] [place] [address] May, [facility] [place] [facility] [address] [id number] [place] [address]- 6736 May, [facility] [place] [facility] [address] [id number] [place] [address]69 May, [facility] [place] [facility] [address] [id number] [place] [address]- 4134 Apr, [facility] [place] [facility] [address] [id number] [place] [address]- 0721 Apr, [facility] [place] [facility] [address] [id number] [place] [address]- 1657 Apr, [facility] [place] [facility] [address] [id number] [place] [address]- 2821 Apr, [facility] [place] [facility] [address] [id number] [place] [address]- 0404 Apr, [facility] [place] [facility] [address] [id number] [place] [address]- 7566 Apr, [facility] [place] [facility] [address] [id number] [place] [address]- 5296 Apr, [facility] [place] [facility] [address] [id number] [place] [address]- 5751 Apr, [facility] [place] [facility] [address] [id number] [place] [address]- 5454 Apr, [facility] [place] [facility] [address] [id number] [place] [address]- 5371 Apr, [facility] [place] [facility] [address] [id number] [place] [address]- 3784 Apr, [facility] [place] [facility] [address] [id number] [place] [address]- 3107 Apr, [facility] [place] [facility] [address] [id number] [place] [address]- 9678 Mar, [facility] [place] [facility] [address] [id number] [place] [address]- 5046 28 Mar, 2013 [facility] [place] [facility] [address] [id number] [place] [address]- 5726 16 Mar, 2013 [facility] [place] [facility] [address] [id number] [place] [address]- 1632 16 Mar, 2013 [facility] [address] [id number] [place] [address]- 4335 15 Mar, 2013 [facility] [place] [facility] [address] [id number] [place] [address]- 4774 15 Mar, 2013 [facility] [place] [facility] [address] [id number] [place] [address]- 4675 27 Feb, 2012 [facility] [place] [facility] [address] [id number] [place] [address]- 8018 25 Feb, 2012 [facility] [place] [facility] [address] [id number] [place] [address]- 8563 25 Feb, 2013 [facility] [place] [facility] [address] [id number] [place] [address]- 0674 23 Feb, 2013 [facility] [address] [id number] [place] [address]- 6839 17 Feb, 2013 [facility] [place] [facility] [address] [id number] [place] [address]- 9105 10 Feb, 2013 [facility] [place] [facility] [address] [id number] [place] [address]- 7242 04 Feb, 2013 [facility] [place] [facility] [address] [id number] [place] [address]- 5359 30 Jan, 2013 [facility] [place] [facility] [address] [id number] [place] [address]- 0806 Jan, [facility] [place] [facility] [address] [id number] [place] [address]- 6120 Jan, [facility] [place] [facility] [address] [id number] [place] [address]- 4731 14 Jan, 2013 [facility] [place] [facility] [address] [id number] [place] [address]- 6653 Jan, [facility] [place] [facility] [address] [id number] [place] [address]- 2520 Jan, [facility] [place] [facility] [address] [id number] [place] [address]- 2547 Jan, [facility] [place] [facility] [address] [id number] [place] [address]- 5613 Dec, [facility] [place] [facility] [address] [id number] [place] [address]- 2546 Dec, [facility] [place] [facility] [address] [id number] [place] [address]- 4846 Dec, [facility] [place] [facility] [address] [id number] [place] [address]- 4777 Dec, [facility] [place] [facility] [address] [id number] [place] [address]- 0670 Dec, [facility] [place] [facility] [address] [id number] [place] [address]- 5381 Dec, [facility] [place] [facility] [address] [id number] [place] [address]- 1453 Nov, [facility] [place] [facility] [address] [id number] [place] [address]- 6060 Nov, [facility] [place] [facility] [address] [id number] [place] [address]- 8704 Nov, [facility] [place] [facility] [address] [id number] [place] [address]- 2291 Nov, [facility] [place] [facility] [address] [id number] [place] [address]- 7205 October, [facility] [place] [facility] [address] [id number] [place] [address]- 5848 October, [facility] [place] [facility] [address] [id number] [place] [address]- 0426 October, [facility] [place] [facility] [address] [id number] [place] [address]- 1626 October, [facility] [place] [facility] [address] [id number] [place] [address]- 1459 30 Sep, 2012 [facility] [address] [id number] [place] [address]- 8849 Sep, [facility] [place] [facility] [address] [id number] [place] [address]- 8753 16 Sep, 2012 [facility] [place] [facility] [address] [id number] [place] [address]- 9706 Sep, [facility] [place] [facility] [address] [id number] [place] [address]- 5030 Sep, [facility] [place] [facility] [address] [id number] [place] [address]- 2686 Sep, [facility] [place] [facility] [address] [id number] [place] [address]- 3920 Sep, [facility] [place] [facility] [address] [id number] [place] [address]- 8697 Sep, [facility] [place] [facility] [address] [id number] [place] [address]- 6357 Aug, [facility] [place] [facility] [address] [id number] [place] [address]- 2436 Aug, [facility] [place] [facility] [address] [id number] [place] [address]- 9236 Aug, [facility] [place] [facility] [address] [id number] [place] [address]- 9324 18 Jul, 2012 [facility] [place] [facility] [address] [id number] [place] [address]- 4597 08 Jul, 2012 [facility] [place] [facility] [address] [id number] [place] [address]- 9139 07 Jul, 2012 [facility] [place] [facility] [address] [id number] [place] [address]- 3855 06 Jul, 2012 [facility] [place] [facility] [address] [id number] [place] [address]- 5652 05 Jul, 2012 [facility] [place] [facility] [address] [id number] [place] [address]- 4078 Jun, [facility] [address] [id number] [place] [address]- 9303 Jun, [facility] [address] [id number] [place] [address]- 8860 Jun, [facility] [address] [id number] [place] [address]- 7058 May, [facility] [address] [id number] [place] [address]- 7999 May, [facility] [address] [id number] [place] 9129 May, [facility] [address] [id number] [place] [address]- 2526 May, [facility] [address] [id number] [place] [address]- 3612 May, [facility] [address] [id number] [place] [address]- 2659 May, [facility] [address] [id number] [place] [address]- 5655 May, [facility] [address] [id number] [place] [address]- 9668 Apr, [facility] [place] [facility] [address] [id number] [place] [address]- 5978 Apr, [facility] [address] [id number] [place] [address]- 9978 Apr, [facility] [place] [facility] [address] [id number] [place] [address]- 4497 Apr, [facility] [place] [facility] [address] [id number] [place] [address]- 8[address] Apr, [facility] [place] [facility] [address] [id number] [place] [address] Apr, [facility] [place] [facility] [address] [id number] [place] [address] Apr, [facility] [place] [facility] [address] [id number] [place] [address] Apr, [facility] [place] [facility] [address] [id number] [place] [address] Apr, [facility] [place] [facility] [address] [id number] [place] [address] Apr, [facility] [place] [facility] [address] [id number] [place] [address] Apr, [facility] [place] [facility] [address] [id number] [place] [address] Mar, [facility] [place] [facility] [address] [id number] [place] [address] Mar, [facility] [place] [facility] [address] [id number] [place] [address] Mar, [facility] [place] [facility] [address] [id number] [place] [address] Mar, [facility] [place] [facility] [address] [id number] [place] [address] Mar, [facility] [place] [facility] [address] [id number] [place] [address] Mar, [facility] [place] [facility] [address] [id number] [place] [address] Mar, [facility] [place] [facility] [address] [id number] [place] [address]- [address] Mar, [facility] [place] [facility] [address] [id number] [place] [address] Mar, [facility] [place] [facility] [address] [id number] [place] [address] Mar, [facility] [place] [facility] [address] [id number] [place] [address]- [address]64 04 Mar, 2012 [facility] [place] [facility] [address] [id number] [place] [address] 28 Sep, 2011 [facility] [place] [facility] [address] [id number] [place] [address] 27 Feb, 2011 [facility] [place] [facility] [address] [id number] [place] [address] 8636 27 Sep, 2011 [facility] [place] [facility] [address] [id number] [place] [address] 2776 26 Feb, 2011 [facility] [place] [facility] [address] [id number] [place] [id number], [place] [address]- [address]67 24 Feb, 2011 [facility] [place] [facility] [address] [id number] [place] [address]- [address] 19 Feb, 2011 [facility] [place] [facility] [address] [id number] [place] [address] 18 Feb, 2011 [facility] [place] [facility] [address] [id number] [place] [address]- 4724 18 Feb, 2011 [facility] [place] [facility] [address] [id number] [place] [address]448 18 Feb, 2011 [facility] [place] [facility] [address] [id number] [place] [address]32 30 Jan, 2012 [facility] [place] [facility] [address] [id number] [place] [address] Jan, [facility] [place] [facility] [address] [id number] [place] [address] Jan, [facility] [place] [facility] [address] [id number] [place] [address] Jan, [facility] [place] [facility] [address] [id number] [place] [address]645 Dec, [facility] [place] [facility] [address] [id number] [place] [address] Dec, [facility] [place] [facility] [address] [id number] [place] [address] Dec, [facility] [place] [facility] [address] [id number] [place] [address]246 Dec, [facility] [place] [facility] [address] [id number] [place] [address]66 Dec, [facility] [place] [facility] [address] [id number] [place] [address]136 Dec, [facility] [place] [facility] [address] [id number] [place] [address] 6849 Dec, [facility] [place] [facility] [address] [id number] [place] [address]006 Dec, [facility] [place] [facility] [address] [id number] [place] [address] 5899 Dec, [facility] [place] [facility] [address] [id number] [place] [address] Dec, [facility] [place] [facility] [address] [id number] [place] [address]72 Dec, [facility] [place] [facility] [address] [id number] [place] [address] 7214 Dec, [facility] [place] [facility] [address] [id number] [place] [address]- 0116 Dec, [facility] [place] [facility] [address] [id number] [place] [address] Dec, [facility] [place] [facility] [address] [id number] [place] [address]228 Nov, [facility] [place] [facility] [address] [id number] [place] [address] 1062 Nov, [facility] [place] [facility] [address] [id number] [place] [address]- 7933 Nov, [facility] [place] [facility] [address] [id number] [place] [address]- 8615 Nov, 2011 [facility] [address] [id number] [place] [address] 8495 Nov, [facility] [place] [facility] [address] [id number] [place] [address]- 9316 Nov, [facility] [place] [facility] [address] [id number] [place] [address]- 7034 October, [facility] [place] [facility] [address] [id number] [place] [address]- [address]41 October, [facility] [place] [facility] [address] [id number] [place] [address]- 1545 October, [facility] [place] [facility] [address] [id number] [place] [address] 3506 October, [facility] [place] [facility] [address] [id number] [place] [address]- 2942 Sep, [facility] [place] [facility] [address] [id number] [place] [address]- [address]77 17 Sep, 2011 [facility] [place] [facility] [address] [id number] [place] [address]- 5779 Sep, [facility] [place] [facility] [address] [id number] [place] [address]- 5970 Sep, [facility] [place] [facility] [address] [id number] [place] [address]- 9720 Sep, [facility] [place] [facility] [address] [id number] [place] [address]- [address] Aug, [facility] [place] [facility] [address] [id number] [place] [address]- 4336 Aug, [facility] [place] [facility] [address] [id number] [place] [address]- 7717 Aug, [facility] [place] [facility] [address] [id number] [place] [address]- 2603 Aug, [facility] [place] [facility] [address] [facility] [id number] [place] [address]- 1312 13 Aug, 2011 [facility] [address] [facility] [id number] [place] [address] Aug, [facility] [address] [facility] [id number] [place] [address]- 8476 Aug, [facility] [address] [facility] [id number] [place] [address] 16 Jul, 2011 [facility] [address] [facility] [id number] [place] [address] 16 Jul, 2011 [facility] [address] [facility] [id number] [place] [address] Jul, [facility] [address] [facility] [id number] [place] [address] Jul, [facility] [address] [id number] [place] [address] Jun, [facility] [address] [place] [id number] Jun, [facility] [address] [id number] [place] [place] [address] Jun, [facility] [address] [id number] [address] Jun, [facility] [address] [id number] [address] Jun, [facility] [address] [facility] [id number] [place] [address] Jun, [facility] [address] [facility] [id number] [place] [address] Jun, [facility] [address] [facility] [id number] [place] [address] Jun, [facility] [address] [id number] [address] May, [facility] [place] [facility] [address] [id number] [place] [address] 29 May, 2011 [facility] [place] [facility] [address] [id number] [place] [address] May, [facility] [place] [facility] [address] [id number] [place] [address] May, [facility] [place] [facility] [address] [id number] [place] [address] May, [facility] [place] [facility] [address] [id number] [place] [address] May, [facility] [place] [facility] [address] [id number] [place] [address] May, [facility] [place] [facility] [address] [id number] [place] [address] Apr, [facility] [place] [facility] [address] [id number] [place] [address] Apr, [facility] [place] [facility] [address] [id number] [place] [address] Apr, [facility] [place] [facility] [address] [id number] [place] [address] 97[address] 27 Mar, 2011 [facility] [place] [facility] [address] [id number] [place] [address] 20 Mar, 2011 [facility] [place] [facility] [address] [id number] [place] [address]349 14 Mar, 2011 [facility] [place] [facility] [address] [id number] [place] [address] 11 Mar, 2011 [facility] [place] [facility] [address] [id number] [place] [address] 10 Mar, 2011 [facility] [place] [facility] [address] [id number] [place] [address] 10 Mar, 2011 [facility] [place] [facility] [address] [id number] [place] [address] 10 Mar, 2011 [facility] [place] [facility] [address] [id number] [place] [address] 11 Jan, 2011 [facility] [place] [facility] [address] [id number] [place] [address] 27 May, 2010 [facility] [place] [facility] [address] [facility] [id number] [place] [address] 21 May, 2010 [facility] [place] [facility] [address] [id number] [place] [address]12 13 May, 2010 [facility] [place] [facility] [address] [id number] [place] [address] 13 May, 2010 [facility] [place] [facility] [address] [id number] [place] [address] May, [facility] [place] [facility] [address] [id number] [place] [address] 06 May, 2010 [facility] [place] [facility] [address] [id number] [place] [address] 29 Apr, 2010 [facility] [place] [facility] [address] [id number] [place] [address] 26 Apr, 2010 [facility] [place] [facility] [address] [id number] [place] [address] 19 Apr, 2010 [facility] [place] [facility] [address] [id number] [place] [address] 18 Apr, 2010 [facility] [place] [facility] [address] [id number] [place] [address] 15 Apr, 2010 [facility] [place] [facility] [address] [id number] [place] [address] 12 Apr, 2010 [facility] [place] [facility] [address] [id number] [place] [address] 12 Apr, 2010 [facility] [place] [facility] [address] [facility] [id number] [place] [address]- [address] 05 Apr, 2010 [facility] [place] [facility] [address] [id number] [address] Apr, [facility] [id number] [address] Apr, [facility] [id number] [address] Mar, [facility] [address] [id number] [address] Mar, [facility] [id number] [address] Mar, [facility] [id number] [address] Mar, [facility] [id number] [address] Mar, [facility] [id number] [address] Dec, [facility] [address] [id number] [address] Nov, IMMUNIZATIONS No Known Immunizations SOCIAL HISTORY Never Assessed REASON FOR VISIT Requests return call PLAN OF CARE VITAL SIGNS MEDICATIONS Medication Instructions Dosage Frequency Start Date End Date Duration Status Citalopram Hydrobromide 20 MG Orally Once a day 1 tablet 24h 30 days Active RESULTS No Results [...] surgery and skin graft, cholecysectomy Hospitalization History [facility] 12/2016 [facility]ization History [facility] 08/2017
--- OUTSIDE RECORDS SUMMARY | 2018-02-04 13:39 | XMS REPORT ---
Author Author NAHOMY BETH Organization [facility] Address [address] [place] [address] Care Team Providers Care Production Control Specialist Name Role Phone NAHOMY BETH Unavailable PROBLEMS Type Condition ICD9-CM Code KRE13-EM Code Onset Dates Condition Status SNOMED Code Problem History of colon polyps Z86.010 Active 156967730 Problem Factitious disorder imposed on self, recurrent episode F68.10 Active 21768030 Problem Anemia, unspecified type D64.9 Active 144823142 Problem Allergic state, subsequent encounter T78.40XD Active 656715827 Problem Unspecified psychosis not due to a substance or known physiological condition F29 Active 77945065 Problem Age-related osteoporosis without current pathological fracture M81.0 Active 54968443 Problem Personality disorder F60.9 Active 12623534 Problem Iron deficiency anemia, unspecified iron deficiency anemia type D50.9 Active 25842658 Problem Anxiety F41.9 Active 66931591 Problem History of CVA with residual deficit I69.30 Active 293879188 Problem Insomnia, unspecified type G47.00 Active 742274943 Problem Perennial allergic rhinitis, unspecified allergic rhinitis trigger J30.89 Active 216258976 Problem Seizure disorder G40.909 Active 002329510 Problem Chronic kidney disease, unspecified stage N18.9 Active 478393914 Problem Back pain M54.9 Active 631227211 Problem Gastroesophageal reflux disease without esophagitis K21.9 Active 165163210 ALLERGIES No Information ENCOUNTERS Encounter Location Date Diagnosis [facility] [id number], [place] [address] Dec, [facility] [address], [place] [address] 5466 Dec, [facility] [address] [id number], [place] [address] 8730 Nov, [facility] [address], [place] [address] 6211 Nov, Back pain M54.9 [facility] [id number] [place] [address] 73360- 1884 Nov, Unspecified psychosis not due to a substance or known physiological condition F29 ; Personality disorder F60.9 and Factitious disorder imposed on self, recurrent episode F68.10 [facility] [id number] [place] [address] 77034- 4257 October, [facility] [id number] [place] [address] 92536- 6771 October, [facility] [id number] [place] [address] 68722- 0817 October, Unspecified psychosis not due to a substance or known physiological condition F29 ; Personality disorder F60.9 and Factitious disorder imposed on self, recurrent episode F68.10 [facility] [address], [place] [address] 8880 October, Back pain M54.9 [facility] [id number] [place] [address] 69700- 9210 October, Seizure disorder G40.909 ; Back pain M54.9 and Allergic state, subsequent encounter T78.40XD [facility] [address], [place] [address] 7542 October, [facility] [id number] [place] [address] 33123- 6653 Sep, Back pain M54.9 [facility] [id number] [place] [address] 43636- 7347 Sep, Unspecified psychosis not due to a substance or known physiological condition F29 ; Personality disorder F60.9 and Factitious disorder imposed on self, recurrent episode F68.10 [facility] [id number] [place] [address] 72126- 1598 Sep, [facility] [id number] [address] 6040 Sep, [facility] [address], [place] [address]- 8662 Sep, [facility] [address], [place] [address] 3435 Sep, [facility] [id number] [place] [address] 53175- 3182 Aug, [facility] [address], [place] [address]- 5772 Aug, Back pain M54.9 [facility] [address], [place] [address] 4886 Aug, Factitious disorder imposed on self, recurrent episode F68.10 ; Personality disorder F60.9 ; Insomnia, unspecified type G47.00 and Anxiety F41.9 [facility] [id number], [place] [address] 1777 Aug, Back pain M54.9 ; Iron deficiency anemia, unspecified iron deficiency anemia type D50.9 ; Chronic kidney disease, unspecified stage N18.9 and Breast cancer screening Z12.31 [facility] [id number] [id number] Jul, Back pain M54.9 [facility] [id number] [id number] Jul, [facility] [id number] [id number] Jul, [facility] [id number] [address] Jun, Back pain M54.9 [facility] [id number] [id number] Jun, [facility] [id number] [place] [address] [id number] Jun, Back pain M54.9 [facility] [address], [place] [address] 9845 Jun, Back pain M54.9 ; Seizure disorder G40.909 and Age-related osteoporosis without current pathological fracture M81.0 [facility] [place] [id number] [place] [address] [id number] May, [facility] [id number] [place] [address] 64254- 2734 May, Back pain M54.9 [facility] [id number] [place] [address] 49596- 2559 Apr, Back pain M54.9 ; Encounter for immunization Z23 ; Gastroesophageal reflux disease without esophagitis K21.9 ; Age-related osteoporosis without current pathological fracture M81.0 and Chronic pruritus L29.9 [facility] [id number] [place] [address] 46201- 5375 Apr, History of CVA with residual deficit I69.30 [facility] [id number] [place] [address] 96800- 0070 Apr, Factitious disorder imposed on self, recurrent episode F68.10 and Personality disorder F60.9 [facility] [place] [id number] [place] [address] [id number] Apr, Back pain M54.9 [facility] [id number] [place] [address] 95960- 2731 Mar, Factitious disorder imposed on self, recurrent episode F68.10 [facility] [address], [place] [address] 8[address] Mar, [place] [id number] [place] [address] [id number] Mar, [facility] [place] [id number] [place] [address] [id number] Mar, Back pain M54.9 [facility] [address], [place] [address]- 37[address] 05 Mar, 2017 Back pain M54.9 ; Seizure disorder G40.909 and Age-related osteoporosis without current pathological fracture M81.0 [address] [address], [place] [address] 3425 Feb, History of CVA with residual deficit I69.30 [place] [facility] [id number] [place] [address] 71596- 5506 Feb, Factitious disorder imposed on self, recurrent episode F68.10 and Personality disorder F60.9 [place] [facility] [id number] [place] [address] 02406- 3263 15 Feb, 2017 Back pain M54.9 [place] [id number] [place] [address] 58773- 8542 Feb, [place] [id number] [place] [address] 73985- 7452 Jan, [facility] [address] [id number] Jan, Age- related osteoporosis without current pathological fracture M81.0 and Allergic state, subsequent encounter T78.40XD [place] [id number] [place] [address] 68884- 8387 Jan, Factitious disorder imposed on self, recurrent episode F68.10 and Personality disorder F60.9 [place] [id number] [place] [address] 91237- 3678 Dec, Back pain M54.9 [place] [id number] [place] [address] 85091- 6912 Dec, Personality disorder F60.9 and Factitious disorder imposed on self, recurrent episode F68.10 [facility] [place] [id number] [place] [address] [id number] Dec, Back pain M54.9 [facility] [place] [id number] [place] [address] [id number] Dec, [facility] [place] [id number] [id number] Dec, [facility] [id number] [place] [address] [id number]- 5409 Dec, [facility] [address], [place] [address]- 9853 Nov, [facility] [id number] [place] [address] 50239- 3514 Nov, Back pain M54.9 ; Anemia, unspecified type D64.9 and History of colon polyps Z86.010 [facility] [id number] [place] [address] 35560- 0448 Nov, Back pain M54.9 [facility] [place] [id number] [place] [address] [id number] October, Back pain M54.9 [facility] [address] [place] [id number] October, Back pain M54.9 and Gastroesophageal reflux disease without esophagitis K21.9 [facility] [place] [id number] [place] [address] [id number] Sep, [facility] [address], [place] [address]- 9791 Sep, [facility] [address], [place] [address]- 8856 Sep, [facility] [address], [place] [address]- 3023 Sep, [facility] [address], [place] [address]- 9365 Sep, [facility] [address], [place] [address]- 5004 Sep, Seizure disorder G40.909 [facility] [address], [place] [address]- 5100 Sep, Back pain M54.9 [facility] [address], [place] [address]- 7631 Sep, [facility] [address], [place] [address]- 5796 Aug, Back pain M54.9 [facility] [address], [place] [address]- 5169 Aug, Seizure disorder G40.909 [facility] [id number] [place] [address] [id number] Aug, [facility] [id number] [place] [address] [id number] 16 Aug, 2016 Back pain M54.9 [facility] [id number] [place] [address] [id number] 14 Aug, 2016 Back pain M54.9 [facility] [id number] [place] [address] [id number] 06 Aug, 2016 Back pain M54.9 [facility] [address] [id number] Jul, Weakness R53.1 [facility] [id number] [place] [address] 45895- 5820 Jul, Seizure disorder G40.909 [facility] [address], [place] [address]- 4860 Jul, [facility] [address], [place] [address]- 1517 Jul, Breast cancer screening Z12.39 [facility] [address], [place] [address]- 8293 Jul, [facility] [address], [place] [address]- 3842 Jul, [facility] [address], [place] [address]- 3160 Jul, [facility] [address], [place] [address]- 8858 Jul, Seizure disorder G40.909 ; Fatigue, unspecified type R53.83 ; Perennial allergic rhinitis, unspecified allergic rhinitis trigger J30.89 and Chronic kidney disease, unspecified stage N18.9 [facility] [address], [place] [address]- 4665 Jul, [facility] [id number] [place] [address] 73723- 8893 Jul, Seizure disorder G40.909 [facility] [id number] [place] [address] 83887- 4863 Jun, [facility] [id number] [place] [address] 64953- 7870 Jun, [address] [id number] Jun, Perennial allergic rhinitis, unspecified allergic rhinitis trigger J30.89 [facility] [place] [id number] [id number] Jun, [facility] [id number] [place] [address] 34738- 9286 Jun, Seizure disorder G40.909 [facility] [place] [id number] [id number] Jun, [facility] [place] [id number] [id number] May, [facility] [address], [place] [address]- 6449 May, [facility] [id number] [place] [address] 22444- 7706 May, [facility] [address], [place] [address]- 5036 May, [facility] [address], [place] [address]- 3684 May, History of CVA with residual deficit I69.30 [facility] [address], [place] [address]- 2066 May, [facility] [id number] [place] [address] 13730- 8752 May, [facility] [id number] [place] [address] 09690- 6826 May, [facility] [id number] [place] [address] 63181- 3970 May, Seizure disorder G40.909 [facility] [id number] [place] [address] 05314- 7800 May, [facility] [address] [place] [address] May, Back pain M54.9 and Seizure disorder G40.909 [facility] [id number] [place] [address] 99977- 7463 Apr, [facility] [id number] [place] [address] 04192- 6111 Apr, Back pain M54.9 [facility] [id number] [place] [address] 59787- 4953 Mar, [facility] [address] [place] [address] Mar, Insomnia, unspecified type G47.00 [facility] [id number] [place] [address] 90085- 2467 Mar, [facility] [id number] [place] [address] 21870- 5994 Feb, [facility] [id number] [place] [address] 07072- 2836 Feb, [facility] [id number] [place] [address] 48043- 1477 16 Feb, 2016 [facility] [id number] [place] [address] 24050- 5090 Jan, [facility] [id number] [place] [address] 02377- 3707 Jan, [facility] [address] [place] [address] Jan, Seizure disorder G40.909 and Back pain M54.9 [facility] [id number] [place] [address] 26188- 1526 Dec, [facility] [id number] [place] [address] 64064- 8446 Dec, [facility] [id number] [place] [address] 37253- 6779 Dec, [facility] [id number] [place] [address] 89950- 1363 Nov, [facility] [id number] [place] [address] 92771- 5631 Nov, [facility] [id number] [place] [address] 06014- 0046 Nov, Back pain M54.9 [facility] [id number] [place] [address] 37732- 1932 October, [facility] [id number] [place] [address] 24004- 9914 October, Back pain M54.9 [facility] [id number] [place] [address] 03722- 7158 October, Seizure disorder G40.909 and B12 deficiency E53.8 [facility] [id number] [place] [address] 14054- 4207 Sep, History of CVA with residual deficit I69.30 [facility] [id number] [place] [address] 67855- 1223 Sep, [facility] [id number] [place] [address] 98475- 2240 Sep, [facility] [id number] [place] [address] 56818- 7201 Sep, Back pain M54.9 [facility] [id number] [place] [address] 47459- 6804 Sep, Seizure disorder G40.909 [facility] [id number] [place] [address] 83812- 3233 Aug, Back pain M54.9 [facility] [id number] [place] [address] 02044- 0046 Aug, Seizure disorder G40.909 [facility] [id number] [place] [address] 83745- 9273 16 Aug, 2015 Back pain M54.9 [facility] [id number] [place] [address] 13552- 2944 14 Aug, 2015 Heart failure, unspecified I50.9 [facility] [id number] [place] [address] 18330- 4771 14 Aug, 2015 Medication monitoring encounter Z51.81 [facility] [id number] [place] [address] 71236- 3543 15 Jul, 2015 [facility] [id number] [place] [address] 18359- 9149 09 Jul, 2015 Seizure disorder G40.909 [facility] [id number] [place] [address] 99713- 9764 05 Jul, 2015 Back pain M54.9 [facility] [id number] [place] [address] 75861- 9247 Jun, [facility] [id number] [place] [address] 58487- 5731 Jun, [facility] [id number] [place] [address] 98822- 7917 20 Joe, 2016 Mental status change R41.82 ; History of CVA with residual deficit I69.30 ; Back pain M54.9 and Seizure disorder G40.909 [facility] [address], [place] [address]- 5436 Jun, [facility] [address] [facility] [id number], [place] [address]- 8846 May, [facility] [id number] [place] [address] 71819- 3696 Apr, [facility] [address] [facility] [id number] [place] [address] 92723 2544 Apr, Medication monitoring encounter Z51.81 [facility] [id number] [place] [address] 87299- 3584 Mar, Vomiting R11.10 [facility] [id number] [place] [address] 00352- 8036 Mar, [facility] [address], [place] [address]- 3718 Feb, [facility] [id number] [place] [address] 74611- 4757 Feb, UTI (urinary tract infection) 599.0 [facility] [address], [place] [address]- 8320 Jan, [facility] [address], [place] [address]- 2546 Jan, [facility] [address] [facility] [id number], [place] [address]- 2541 Jan, [facility] [address] [facility] [id number], [place] [address] Dec, [facility] [address] [facility] [id number], [place] [address] Dec, [facility] [id number], [place] [address] Dec, [facility] [place] [facility] [address] [id number] [place] [address] Dec, [facility] [place] [facility] [address] [id number] [place] [address] Nov, UNKNOWN Nov, [facility] [place] [facility] [address] [id number] [place] [address] October, [facility] [place] [facility] [address] [id number] [place] [address] Sep, [facility] [place] [facility] [address] [id number] [place] [address] Sep, [facility] [place] [facility] [address] [id number] [place] [address] Aug, [facility] [place] [facility] [address] [id number] [place] [address] Aug, [facility] [place] [facility] [address] [id number] [place] [address] Jul, [facility] [place] [facility] [address] [id number] [place] [address] Jul, [facility] [place] [facility] [address] [id number] [place] [address] Jul, [facility] [place] [facility] [address] [id number] [place] [address] Jul, [facility] [place] [facility] [address] [id number] [place] [address] Jul, [facility] [place] [facility] [address] [id number] [place] [address] Jun, [facility] [place] [facility] [address] [id number] [place] [address] Jun, [facility] [place] [facility] [address] [id number] [place] [address] Jun, [facility] [place] [facility] [address] [id number] [place] [address] Jun, [facility] [address] [id number] [place] [address] Jun, [facility] [address] [id number] [place] [address] 4[address] Jun, [facility] [address] [id number] [place] [address] 1668 Jun, [facility] [address] [id number] [place] [address] 9879 Jun, [facility] [address] [id number] [place] [address]- [address] Jun, [facility] [address] [id number] [place] [address] 7707 Jun, [facility] [address] [id number] [place] [address] 6415 Jun, [facility] [address] [id number] [place] [address]- 8689 Jun, [facility] [address] [id number] [place] [address]- 8474 Jun, [facility] [address] [id number] [place] [address] 5231 Jun, [facility] [place] [facility] [address] [id number] [place] [address]- 9071 Jun, [facility] [address] [id number] [place] [address]- 3145 Jun, [facility] [place] [facility] [address] [id number] [place] [address]- 2758 Jun, [facility] [place] [facility] [address] [id number] [place] [address]- 9142 Jun, [facility] [place] [facility] [address] [id number] [place] [address]- 1642 May, [facility] [address] [id number] [place] [address]- 5552 May, [facility] [place] [facility] [address] [id number] [place] [address] May, [facility] [place] [facility] [address] [id number] [place] [address]- 7936 May, [facility] [place] [facility] [address] [id number] [place] [address]- 3536 May, [facility] [address] [id number] [place] [address] May, [facility] [place] [facility] [address] [id number] [place] [address]- 1307 May, [facility] [address] [id number] [place] [address]- 6894 May, [facility] [address] [id number] [place] [address]- 2353 May, [facility] [address] [id number] May, [facility] [address] [id number] [place] [address]- 7142 May, [facility] [address] [id number] [place] [address]- 3654 May, [facility] [place] [facility] [address] [id number] [place] [address]- 6526 May, [facility] [place] [facility] [address] [id number] [place] [address]- 5936 Apr, [facility] [place] [facility] [address] [id number] [place] [address]- 2316 Apr, [facility] [place] [facility] [address] [id number] [place] [address]- 2976 Apr, [facility] [place] [facility] [address] [id number] [place] [address]- 3336 Apr, [facility] [place] [facility] [address] [id number] [place] [address]- 1649 Apr, [facility] [place] [facility] [address] [id number] [place] [address] Apr, [facility] [place] [facility] [address] [id number] [place] [address] Mar, [facility] [place] [facility] [address] [id number] [place] [address]- 9095 Mar, [facility] [place] [facility] [address] [id number] [place] [address]- 4536 Mar, [facility] [place] [facility] [address] [id number] [place] [address]- 6143 Mar, [facility] [place] [facility] [address] [id number] [place] [address]- 1899 Mar, [facility] [place] [facility] [address] [id number], [place] [address] 6971 Mar, [facility] [place] [facility] [address] [id number] [place] [address]- 3143 24 Feb, 2014 [facility] [place] [facility] [address] [id number] [place] [address]- 3692 24 Feb, 2014 [facility] [place] [facility] [address] [id number], [place] [address] 23 Feb, 2014 [facility] [place] [facility] [address] [id number], [place] [address]- [address] 23 Feb, 2014 [facility] [place] [facility] [address] [id number] [place] [address]- 1343 19 Feb, 2014 [facility] [place] [facility] [address] [id number], [place] [address]- 3125 19 Feb, 2014 [facility] [place] [facility] [address] [id number], [place] [address] 8076 19 Feb, 2014 [facility] [place] [facility] [address] [id number] [place] [address]- 8226 Feb, [facility] [place] [facility] [address] [id number] [place] [address]- 3843 Feb, [facility] [place] [facility] [address] [id number] [place] [address]- 6731 Feb, [facility] [address] [facility] [place] [id number] Feb, [facility] [place] [facility] [address] [id number] [place] [address]- 7633 Feb, [facility] [place] [facility] [address] [id number] [place] [address]- 0934 Jan, [facility] [place] [facility] [address] [id number] [place] [address]- 3830 Jan, [facility] [place] [facility] [address] [id number] [place] [address]- 2407 Dec, [facility] [place] [facility] [address] [id number] [place] [address]- 4531 Dec, [facility] [place] [facility] [address] [id number] [place] [address]- 7836 Dec, [facility] [place] [facility] [address] [id number] [place] [address]- 1680 Dec, [facility] [place] [facility] [address] [id number] [place] [address]- 7224 Dec, [facility] [place] [facility] [address] [id number] [place] [address]- 5962 Dec, [facility] [place] [facility] [address] [id number] [place] [address]- 4552 Dec, [facility] [place] [facility] [address] [id number] [place] [address]- 1140 Dec, [facility] [place] [facility] [address] [id number] [place] [address]- 5125 Dec, [facility] [place] [facility] [address] [id number] [place] [address]- 9460 Dec, [facility] [place] [facility] [address] [id number] [place] [address]- 3261 Nov, [facility] [place] [facility] [address] [id number] [place] [address]- 2435 Nov, [facility] [place] [facility] [address] [id number] [place] [address]- 0184 Nov, [facility] [place] [facility] [address] [id number] [place] [address]- 7327 Nov, [facility] [place] [facility] [address] [id number] [place] [address]- 6378 Nov, [facility] [place] [facility] [address] [id number] [place] [address]- 2421 Nov, [facility] [place] [facility] [address] [id number] [place] [address]- 1804 Nov, [facility] [place] [facility] [address] [id number] [place] [address]- 0171 Nov, [facility] [place] [facility] [address] [id number] [place] [address]- 4527 Nov, [facility] [place] [facility] [address] [id number] [place] [address]- 4437 Nov, [facility] [place] [facility] [address] [id number] [place] [address]- 1215 Nov, [facility] [place] [facility] [address] [id number] [place] [address]- 6617 Nov, [facility] [place] [facility] [address] [id number] [place] [address]- 0239 Nov, [facility] [place] [facility] [address] [id number] [place] [address]- 7716 Nov, [facility] [place] [facility] [address] [id number] [place] [address]- 9491 October, [facility] [place] [facility] [address] [id number] [place] [address]- 9080 October, [facility] [place] [facility] [address] [id number] [place] [address]- 6326 October, [facility] [place] [facility] [address] [id number] [place] [address]- 0115 October, [facility] [place] [facility] [address] [id number] [place] [address]- 5360 October, [facility] [place] [facility] [address] [id number] [place] [address]- 4583 October, [facility] [place] [facility] [address] [id number] [place] [address]- 4444 October, [facility] [place] [facility] [address] [id number] [place] [address]- 3493 October, [facility] [place] [facility] [address] [id number] [place] [address]- 8536 October, [facility] [place] [facility] [address] [id number] [place] [address]- 2316 October, [facility] [place] [facility] [address] [id number] [place] [address]- 7023 Sep, [facility] [place] [facility] [address] [id number] [place] [address]- 0395 Sep, [facility] [place] [facility] [address] [id number] [place] [address]- 2399 Sep, [facility] [place] [facility] [address] [id number] [place] [address]- 5685 Sep, [facility] [place] [facility] [address] [id number] [place] [address]- 6303 Sep, [facility] [place] [facility] [address] [id number] [place] [address]- 1048 Sep, [facility] [place] [facility] [address] [id number] [place] [address]- 9650 Sep, [facility] [place] [facility] [address] [id number] [place] [address]- 9516 Sep, [facility] [place] [facility] [address] [id number] [place] [address]- 5490 Sep, [facility] [place] [facility] [address] [id number] [place] [address]- 9923 Sep, [facility] [place] [facility] [address] [id number] [place] [address]- 7320 Aug, [facility] [place] [facility] [address] [id number] [place] [address]- 5048 Aug, [facility] [place] [facility] [address] [id number] [place] [address]- 2231 Aug, [facility] [place] [facility] [address] [id number] [place] [address]- 5198 Aug, [facility] [place] [facility] [address] [id number] [place] [address]- 5321 Aug, [facility] [place] [facility] [address] [id number] [place] [address]- 1825 Aug, [facility] [place] [facility] [address] [facility] [id number] [place] [address]- 0809 Aug, [facility] [place] [facility] [address] [id number] [place] [address]- 9702 Aug, [facility] [place] [facility] [address] [id number] [place] [address]- 7008 Aug, [facility] [place] [facility] [address] [id number] [place] [address]- 9272 Jul, [facility] [place] [facility] [address] [id number] [place] [address]- 6460 Jul, [facility] [place] [facility] [address] [id number] [place] [address]- 6588 Jul, [facility] [place] [facility] [address] [id number] [place] [address]- 3605 Jul, [facility] [place] [facility] [address] [id number] [place] [address]- 0506 Jul, [facility] [place] [facility] [address] [id number] [place] [address]- 4171 Jul, [facility] [place] [facility] [address] [id number] [place] [address]- 3754 Jul, [facility] [place] [facility] [address] [id number] [place] [address]- 0486 Jul, [facility] [place] [facility] [address] [id number] [place] [address]- 8784 Jul, [facility] [place] [facility] [address] [id number] [place] [address]- 5731 Jul, [facility] [place] [facility] [address] [id number] [place] [address]- 7475 Jul, [facility] [place] [facility] [address] [id number] [place] [address]- 2686 Jul, [facility] [place] [facility] [address] [id number] [place] [address]- 5447 Jul, [facility] [place] [facility] [address] [id number] [place] [address]- 8215 Jul, [facility] [place] [facility] [address] [id number] [place] [address]- 1351 Jul, [facility] [place] [facility] [address] [id number] [place] [address]- 2220 Jul, [facility] [place] [facility] [address] [id number] [place] [address]- 5714 Jun, [facility] [place] [facility] [address] [facility] [id number] [place] [address]- 1025 Jun, [facility] [place] [facility] [address] [id number] [place] [address]- 0809 16 Jun, 2013 [facility] [address] [id number] [place] [address]- 3510 Jun, [facility] [place] [facility] [address] [id number] [place] [address]- 7601 Jun, [facility] [place] [facility] [address] [id number] [place] [address]- 4656 Jun, [facility] [place] [facility] [address] [id number] [place] [address]- 5329 May, [facility] [place] [facility] [address] [id number] [place] [address]- 7657 May, [facility] [place] [facility] [address] [id number] [place] [address]- 6729 May, [facility] [place] [facility] [address] [id number] [place] [address]- 5742 May, [facility] [place] [facility] [address] [id number] [place] [address]- 0968 Apr, [facility] [place] [facility] [address] [id number] [place] [address]- 4833 Apr, [facility] [place] [facility] [address] [id number] [place] [address]- 1918 Apr, [facility] [place] [facility] [address] [id number] [place] [address]- 3094 Apr, [facility] [place] [facility] [address] [id number] [place] [address]- 9742 Apr, [facility] [place] [facility] [address] [id number] [place] [address]- 1555 Apr, [facility] [place] [facility] [address] [id number] [place] [address]- 8027 Apr, [facility] [place] [facility] [address] [id number] [place] [address]- 8721 Apr, [facility] [place] [facility] [address] [id number] [place] [address]- 8303 18 Apr, 2013 [facility] [place] [facility] [address] [id number] [place] [address]- 3680 18 Apr, 2013 [facility] [place] [facility] [address] [id number] [place] [address]- 6678 Apr, [facility] [place] [facility] [address] [id number] [place] [address]- 9142 Apr, [facility] [place] [facility] [address] [id number] [place] [address]- 9475 28 Mar, 2013 [facility] [place] [facility] [address] [id number] [place] [address]- 2360 28 Mar, 2013 [facility] [place] [facility] [address] [id number] [place] [address]- 2955 16 Mar, 2013 [facility] [place] [facility] [address] [id number], [place] [address]- 6548 16 Mar, 2013 [facility] [place] [facility] [address] [id number] [place] [address]- 9505 15 Mar, 2013 [facility] [place] [facility] [address] [id number], [place] [address]- 0255 15 Mar, 2013 [facility] [place] [facility] [address] [id number], [place] [address]- 3079 27 Sep, 2012 [facility] [place] [facility] [address] [id number], [place] [address]- 6389 25 Sep, 2012 [facility] [place] [facility] [address] [id number] [place] [address]- 8265 25 Sep, 2012 [facility] [place] [facility] [address] [id number], [place] [address]- 3620 23 Sep, 2012 [facility] [place] [facility] [address] [id number] [place] [address]- 7402 17 Sep, 2012 [facility] [place] [facility] [address] [id number] [place] [address]- 1304 10 Feb, 2013 [facility] [address] [id number] [place] [address]- 9978 Feb, [facility] [place] [facility] [address] [id number] [place] [address]- 0302 Jan, [facility] [place] [facility] [address] [id number] [place] [address]- 6357 Jan, [facility] [place] [facility] [address] [id number] [place] [address]- 7332 Jan, [facility] [place] [facility] [address] [id number] [place] [address]- 5173 Jan, [facility] [place] [facility] [address] [id number] [place] [address]- 2462 Jan, [facility] [place] [facility] [address] [id number] [place] [address]- 4238 Jan, [facility] [place] [facility] [address] [id number] [place] [address]- 4254 Jan, [facility] [place] [facility] [address] [id number] [place] [address]- 8595 Dec, [facility] [place] [facility] [address] [id number] [place] [address]- 0818 Dec, [facility] [place] [facility] [address] [id number] [place] [address]- 8423 Dec, [facility] [place] [facility] [address] [id number] [place] [address]- 3195 Dec, [facility] [place] [facility] [address] [id number] [place] [address]- 7234 Dec, [facility] [place] [facility] [address] [id number] [place] [address]- 1838 Dec, [facility] [place] [facility] [address] [id number] [place] [address]- 1915 Nov, [facility] [place] [facility] [address] [id number] [place] [address]- 6804 Nov, [facility] [address] [id number] [place] [address]- 2549 Nov, [facility] [address] [id number] [place] [address]- 1824 Nov, [facility] [address] [id number] [place] [address]- 0398 October, [facility] [address] [id number] [place] [address]- 6242 October, [facility] [address] [id number] [place] [address]- 9327 October, [facility] [address] [id number] [place] [address]- 3700 October, [facility] [address] [id number] [place] [address]- 8813 Sep, [facility] [address] [id number] [place] [address]- 3072 Sep, [facility] [address] [id number] [place] [address]- 6533 16 Sep, 2012 [facility] [address] [id number] [place] [address] Sep, [facility] [place] [facility] [address] [id number] [place] [address] Sep, [facility] [place] [facility] [address] [id number] [place] [address] Sep, [facility] [place] [facility] [address] [id number] [place] [address] Sep, [facility] [place] [facility] [address] [id number] [place] [address] Sep, [facility] [place] [facility] [address] [id number] [place] [address] 13 Aug, 2012 [facility] [address] [id number] [place] [address] 13 Aug, 2012 [facility] [address] [id number] [place] [address] 05 Aug, 2012 [facility] [address] [facility] [id number] [place] [address] 18 Jul, 2012 [facility] [address] [id number] [place] [address] 08 Jul, 2012 [facility] [address] [id number] [place] [address] 07 Jul, 2012 [facility] [address] [facility] [id number] [place] [address]- [address] 06 Jul, 2012 [facility] [address] [facility] [id number] [place] [address] 05 Jul, 2012 [facility] [address] [id number] [place] [address] Jun, [facility] [address] [facility] [id number] [place] [address] 119[address] Jun, [facility] [address] [facility] [id number] [place] [address] 3963 08 Jun, 2012 [facility] [address] [facility] [id number] [place] [address] May, [facility] [address] [id number], [place] [address] May, [facility] [address] [id number] [place] [address] May, [facility] [address] [facility] [id number] [place] [address] May, [facility] [address] [facility] [id number] [place] [address] May, [facility] [place] [facility] [address] [id number] [place] [address] 1154 May, [facility] [place] [facility] [address] [id number] [place] [address] May, [facility] [place] [facility] [address] [id number] [place] [address] Apr, [facility] [place] [facility] [address] [id number] [place] [address] Apr, [facility] [place] [facility] [address] [id number] [place] [address] 7747 Apr, [facility] [place] [facility] [address] [id number] [place] [address] Apr, [facility] [place] [facility] [address] [id number] [place] [address] Apr, [facility] [place] [facility] [address] [id number] [place] [address] Apr, [facility] [place] [facility] [address] [id number] [place] [address] 17[address] Apr, [facility] [place] [facility] [address] [id number] [place] [address] Apr, [facility] [place] [facility] [address] [id number] [place] [address] 3511 Apr, [facility] [place] [facility] [address] [id number] [place] [address]- [address] Apr, [facility] [place] [facility] [address] [id number] [place] [address] 49[address] Apr, [facility] [place] [facility] [address] [id number] [place] [address] Mar, [facility] [place] [facility] [address] [id number] [place] [address] Mar, [facility] [place] [facility] [address] [id number] [place] [address] Mar, [facility] [place] [facility] [address] [id number] [place] [address] Mar, [facility] [place] [facility] [address] [id number] [place] [address]35 Mar, [facility] [place] [facility] [address] [id number] [place] [address] 36[address] Mar, [facility] [place] [facility] [address] [id number] [place] [address]65 Mar, [facility] [place] [facility] [address] [id number] [place] [address]- 7499 19 Mar, 2012 [facility] [place] [facility] [address] [id number] [place] [address]- 1576 16 Mar, 2012 [facility] [place] [facility] [address] [id number] [place] [address] 9854 16 Mar, 2012 [facility] [place] [facility] [address] [id number], [place] [address] 04 Mar, 2012 [facility] [place] [facility] [address] [id number] [place] [address]- [address] 28 Sep2011 [facility] [place] [facility] [address] [id number] [place] [address]- 2423 27 Sep, 2011 [facility] [place] [facility] [address] [id number], [place] [address] 27 Sep, 2011 [facility] [place] [facility] [address] [id number], [place] [address] 26 Sep, 2011 [facility] [place] [facility] [address] [id number] [place] [address]- [address]484 24 Sep, 2011 [facility] [place] [facility] [address] [id number], [place] [address] 19 Sep, 2011 [facility] [place] [facility] [address] [id number], [place] [address] 18 Sep, 2011 [facility] [place] [facility] [address] [id number] [place] [address] Feb, [facility] [place] [facility] [address] [id number] [place] [address] 6966 Feb, [facility] [place] [facility] [address] [id number] [place] [address] 9846 Jan, [facility] [place] [facility] [address] [id number] [place] [address]- 1526 Jan, [facility] [place] [facility] [address] [id number] [place] [address]- [address]676 Jan, [facility] [place] [facility] [address] [id number] [place] [address] Jan, [facility] [place] [facility] [address] [id number] [place] [address]- 6718 Dec, [facility] [place] [facility] [address] [id number] [place] [address]- 2842 Dec, [facility] [place] [facility] [address] [id number] [place] [address]- 8258 Dec, [facility] [place] [facility] [address] [id number] [place] [address]- [address]178 Dec, [facility] [place] [facility] [address] [id number] [place] [address]- 8[address] Dec, [facility] [place] [facility] [address] [id number] [place] [address]- 0816 Dec, [facility] [place] [facility] [address] [id number] [place] [address]- 2544 Dec, [facility] [place] [facility] [address] [id number] [place] [address]- 9118 Dec, [facility] [place] [facility] [address] [id number] [place] [address]- 2546 Dec, [facility] [place] [facility] [address] [id number] [place] [id number] Dec, [facility] [place] [facility] [address] [id number] [place] [address] Dec, [facility] [place] [facility] [address] [id number] [place] [address] Dec, [facility] [place] [facility] [address] [id number] [place] [address] Dec, [facility] [place] [facility] [address] [id number] [place] [address] Dec, [facility] [address] [id number] [place] [address] Nov, [facility] [place] [facility] [address] [id number] [place] [address] Nov, [facility] [place] [facility] [address] [id number] [place] [address] Nov, [facility] [place] [facility] [address] [id number] [place] [address] Nov, [facility] [place] [facility] [address] [id number] [place] [address] Nov, [facility] [place] [facility] [address] [id number] [place] [address] Nov, [facility] [place] [facility] [address] [id number] [place] [address] October, [facility] [place] [facility] [address] [id number] [place] [address] October, [facility] [place] [facility] [address] [id number] [place] [address] October, [facility] [place] [facility] [address] [id number] [place] [address] October, [facility] [place] [facility] [address] [id number] [place] [address] Sep, [facility] [place] [facility] [address] [id number] [place] [address] 17 Sep, 2011 [facility] [address] [id number] [place] [address] 13 Sep, 2011 [facility] [address] [id number] [place] [address] 09 Sep, 2011 [facility] [address] [facility] [id number] [place] [address] Sep, [facility] [address] [id number] [place] [address] Aug, [facility] [address] [id number] [place] [address]204 Aug, [facility] [address] [facility] [id number] [place] [address] Aug, [facility] [address] [facility] [id number] [place] [address] 58[address] Aug, [facility] [address] [facility] [id number] [place] [address] Aug, [facility] [address] [id number] [place] [address]697 Aug, [facility] [address] [facility] [id number] [place] [address]17 Aug, [facility] [address] [facility] [id number] [place] [address] 16 Jul, 2011 [facility] [address] [facility] [id number] [place] [address] 3918 16 Jul, 2011 [facility] [address] [id number] [place] [address] 9499 15 Jul, 2011 [facility] [address] [facility] [id number] [place] [address]17 15 Jul, 2011 [facility] [address] [facility] [id number] [place] [address]673 24 Jun, 2011 [facility] [address] [place] [id number] Jun, [facility] [address] [id number] [place] [address] 9034 Jun, [facility] [address] [id number] [place] [address]276 Jun, [facility] [address] [id number] [place] [address] 1149 Jun, [facility] [address] [id number] [place] [address] Jun, [facility] [address] [id number] [place] [address] 7[address] Jun, [facility] [address] [id number] [place] [address]293 Jun, [facility] [address] [id number] [place] [address] May, [facility] [address] [id number] [place] [address]19 May, [facility] [address] [id number] [place] [address]441 May, [facility] [address] [facility] [id number] [place] [address]- [address]396 May, [facility] [address] [id number] [place] [address] 3381 May, [facility] [address] [id number], [place] [address] May, [facility] [address] [id number] [place] [address] 7439 May, [facility] [address] [id number] [place] [address] 2543 Apr, [facility] [address] [id number], [place] [address] Apr, [facility] [place] [facility] [address] [id number] [place] [address]- 7226 Apr, [facility] [place] [facility] [address] [id number] [place] [address]- 4877 27 Mar, 2011 [facility] [place] [facility] [address] [id number] [place] [address] 8869 20 Mar, 2011 [facility] [place] [facility] [address] [id number] [place] [address] 1843 14 Mar, 2011 [facility] [place] [facility] [address] [id number] [place] [address]- 7419 Mar, [facility] [place] [facility] [address] [id number] [place] [address]- 1689 Mar, [facility] [place] [facility] [address] [id number] [place] [address]- 7965 Mar, [facility] [place] [facility] [address] [id number] [place] [address]- 3732 Mar, [facility] [place] [facility] [address] [id number] [place] [address]- 8121 Jan, [facility] [place] [facility] [address] [id number] [place] [address]- 5826 May, [facility] [place] [facility] [address] [id number] [place] [address]- 2820 May, [facility] [place] [facility] [address] [id number] [place] [address]- 6138 May, [facility] [place] [facility] [address] [id number] [place] [address]- 7172 May, [facility] [place] [facility] [address] [id number] [place] [address]- 4577 10 May, 2010 [facility] [place] [facility] [address] [id number] [place] 06 May, 2010 [facility] [place] [facility] [address] [id number] [place] [address]- 3095 Apr, [facility] [place] [facility] [address] [id number] [place] [address]- 0170 Apr, [facility] [place] [facility] [address] [id number] [place] [address]- 0565 Apr, [facility] [place] [facility] [address] [id number] [place] [address]- 4205 Apr, [facility] [place] [facility] [address] [id number], [place] [address] 2540 Apr, [facility] [place] [facility] [address] [id number] [place] [address]- 7200 Apr, [facility] [place] [facility] [address] [id number] [place] [address]- 6636 Apr, [facility] [place] [facility] [address] [id number] [place] [address]- 9919 Apr, [facility] [place] [facility] [address] [id number] [place] [address]- 5397 Apr, [facility] [place] [facility] [address] [id number] [place] [address]- 2380 Apr, [facility] [place] [facility] [address] [id number] [place] [address]- 3670 Mar, [facility] [place] [facility] [address] [id number], [place] [address]- [address]65 Mar, [facility] [place] [facility] [address] [id number], [place] [address]- 3767 Mar, [facility] [place] [facility] [address] [id number] [place] [address]- 8047 Mar, [facility] [place] [facility] [address] [id number], [place] [address]- 0976 Mar, [facility] [place] [facility] [address] [id number], [place] [address]- 6397 Dec, [facility] [place] [facility] [address] [facility] [id number] [place] [address] [address] 10 Nov, 2009 IMMUNIZATIONS No Known Immunizations SOCIAL HISTORY Never Assessed REASON FOR VISIT Lab orders PLAN OF CARE VITAL SIGNS MEDICATIONS Unknown [...] and skin graft, cholecysectomy Hospitalization History [facility]/2016 [facility]ization History [facility] 08/2017
--- OUTSIDE RECORDS SUMMARY | 2018-02-04 13:40 | XMS REPORT ---
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 Phone NAHOMY BETH Unavailable PROBLEMS Type Condition ICD9-CM Code HDW71-[id number] Code Onset Dates Condition Status SNOMED Code Problem History of colon polyps Z86.010 Active 683529521 Problem Factitious disorder imposed on self, recurrent episode F68.10 Active 58511412 Problem Anemia, unspecified type D64.9 Active 582748936 Problem Allergic state, subsequent encounter T78.40XD Active 095982007 Problem Unspecified psychosis not due to a substance or known physiological condition F29 Active 21868390 Problem Age-related osteoporosis without current pathological fracture M81.0 Active 75986287 Problem Personality disorder F60.9 Active 58171817 Problem Iron deficiency anemia, unspecified iron deficiency anemia type D50.9 Active 97668309 Problem Anxiety F41.9 Active 25298150 Problem History of CVA with residual deficit I69.30 Active 840402245 Problem Insomnia, unspecified type G47.00 Active 898175128 Problem Perennial allergic rhinitis, unspecified allergic rhinitis trigger J30.89 Active 870099980 Problem Seizure disorder G40.909 Active 064370378 Problem Chronic kidney disease, unspecified stage N18.9 Active 016703289 Problem Back pain M54.9 Active 320353074 Problem Gastroesophageal reflux disease without esophagitis K21.9 Active 816188818 ALLERGIES No Information ENCOUNTERS Encounter Location Date Diagnosis [facility] [id number], [place] [address] Dec, [facility] [address], [place] [address]80 Dec, [facility] [id number], [place] [address] 4871 Nov, [facility] [address], [place] [address] Nov, Unspecified psychosis not due to a substance or known physiological condition F29 ; Personality disorder F60.9 and Factitious disorder imposed on self, recurrent episode F68.10 [facility] [address], [place] [address] 6625 October, [facility] [id number] [place] [address] 04740- 3374 October, [facility] [id number] [place] [address] 49123- 7962 October, Unspecified psychosis not due to a substance or known physiological condition F29 ; Personality disorder F60.9 and Factitious disorder imposed on self, recurrent episode F68.10 [facility] [id number], [place] [address] 3[address] October, Back pain M54.9 [facility] [id number] [place] [address] 37796- 4831 October, Seizure disorder G40.909 ; Back pain M54.9 and Allergic state, subsequent encounter T78.40XD [facility] [address], [place] [address] 2729 October, [facility] [address], [place] [address] 5593 Sep, Back pain M54.9 [facility] [address], [place] [address] 9641 Sep, Unspecified psychosis not due to a substance or known physiological condition F29 ; Personality disorder F60.9 and Factitious disorder imposed on self, recurrent episode F68.10 [facility] [address], [place] [address] 2945 Sep, [facility] [id number], [place] [address] 2102 Sep, [facility] [address] [address] 9933 Sep, [facility] [address] [address] [address]90 Sep, [facility] [address], [place] [address]- 5961 Aug, [facility] [id number] [place] [address] 25326- 3975 Aug, Back pain M54.9 [facility] [address], [place] [address] 6784 Aug, Factitious disorder imposed on self, recurrent episode F68.10 ; Personality disorder F60.9 ; Insomnia, unspecified type G47.00 and Anxiety F41.9 [facility] [address], [place] [address] 3317 Aug, Back pain M54.9 ; Iron deficiency anemia, unspecified iron deficiency anemia type D50.9 ; Chronic kidney disease, unspecified stage N18.9 and Breast cancer screening Z12.31 [facility] [id number] [address] Jul, Back pain M54.9 [facility] [id number] [address] Jul, [facility] [id number] [id number] Jul, [facility] [address] [id number] [address] Jun, Back pain M54.9 [facility] [id number] [address] Jun, [facility] [id number] [address] Jun, Back pain M54.9 [facility] [id number], [place] [address] 8344 Jun, Back pain M54.9 ; Seizure disorder G40.909 and Age-related osteoporosis without current pathological fracture M81.0 [facility] [id number] [place] [address] [id number] May, [facility] [address], [place] [address]- 7093 May, Back pain M54.9 [facility] [id number] [place] [address] 29781- 2627 Apr, Back pain M54.9 ; Encounter for immunization Z23 ; Gastroesophageal reflux disease without esophagitis K21.9 ; Age-related osteoporosis without current pathological fracture M81.0 and Chronic pruritus L29.9 [facility] [id number] [place] [address] 14913- 3109 16 Apr, 2017 History of CVA with residual deficit I69.30 [facility] [id number] [place] [address] 32575- 0342 Apr, Factitious disorder imposed on self, recurrent episode F68.10 and Personality disorder F60.9 [facility] [id number] [place] [address] [id number] Apr, Back pain M54.9 [facility] [id number] [place] [address] 66764- 0037 Mar, Factitious disorder imposed on self, recurrent episode F68.10 [facility] [address], [place] [address]- 9342 Mar, [facility] [id number] [place] [address] [id number] Mar, [facility] [id number] [place] [address] [id number] Mar, Back pain M54.9 [facility] [address] [place] [address] 22732- 7676 05 Mar, 2017 Back pain M54.9 ; Seizure disorder G40.909 and Age-related osteoporosis without current pathological fracture M81.0 [facility] [address], [place] [address]- 7035 19 Feb, 2017 History of CVA with residual deficit I69.30 [facility] [id number] [place] [address] 66688- 1735 Feb, Factitious disorder imposed on self, recurrent episode F68.10 and Personality disorder F60.9 [facility] [id number] [place] [address] 73810- 5766 15 Feb, 2017 Back pain M54.9 [facility] [id number] [place] [address] 97943- 4264 Feb, [facility] [id number] [place] [address] 90069- 2892 Jan, [facility] and [address] [id number] Jan, Age- related osteoporosis without current pathological fracture M81.0 and Allergic state, subsequent encounter T78.40XD [facility] [id number] [place] [address] 55233- 9895 Jan, Factitious disorder imposed on self, recurrent episode F68.10 and Personality disorder F60.9 [facility] [address], [place] [address] 1894 Dec, Back pain M54.9 [facility] [id number] [place] [address] 01289- 1529 Dec, Personality disorder F60.9 and Factitious disorder imposed on self, recurrent episode F68.10 [facility] [id number] [place] [address] [id number] Dec, Back pain M54.9 [facility] [id number] [place] [address] [id number] Dec, [facility] [id number] [place] [address] [id number] Dec, [facility] [address], [place] [address]- 3752 Dec, [facility] [address], [place] [address]- 7751 Nov, [facility] [address], [place] [address]- 4489 Nov, Back pain M54.9 ; Anemia, unspecified type D64.9 and History of colon polyps Z86.010 [facility] [address], [place] [address]- 0909 Nov, Back pain M54.9 [facility] [id number] [place] [address] [id number] October, Back pain M54.[address] [id number] October, Back pain M54.9 and Gastroesophageal reflux disease without esophagitis K21.9 [facility] [id number] [address] Sep, [facility] [address], [place] [address]- 5556 Sep, [facility] [address], [place] [address]- 1191 Sep, [facility] [address], [place] [address]- 9486 Sep, [facility] [address], [place] [address]- 4034 Sep, [facility] [address], [place] [address]- 4104 Sep, Seizure disorder G40.909 [facility] [address], [place] [address]- 9661 Sep, Back pain M54.9 [facility] [address], [place] [address]- 8203 Sep, [facility] [address], [place] [address]- 2124 Aug, Back pain M54.9 [facility] [address], [place] [address]- 8206 Aug, Seizure disorder G40.909 [facility] [id number] [address] 17 Aug, 2016 [facility] [id number] [place] [address] [id number] 16 Aug, 2016 Back pain M54.9 [facility] [id number] [place] [address] [id number] 14 Aug, 2016 Back pain M54.9 [facility] [id number] [id number] 06 Aug, 2016 Back pain M54.9 [facility] [address] [place] [address] [id number] Jul, Weakness R53.1 [facility] [address], [place] [address]- 5505 Jul, Seizure disorder G40.909 [facility] [id number] [place] [address] 98446- 5646 Jul, [facility] [address], [place] [address]- 7724 Jul, Breast cancer screening Z12.39 [facility] [address], [place] [address]- 2872 Jul, [facility] [address], [place] [address]- 8870 Jul, [facility] [address], [place] [address]- 9066 Jul, [facility] [address], [place] [address]- 3232 13 Jul, 2016 Seizure disorder G40.909 ; Fatigue, unspecified type R53.83 ; Perennial allergic rhinitis, unspecified allergic rhinitis trigger J30.89 and Chronic kidney disease, unspecified stage N18.9 [facility] [id number] [place] [address] 59973- 1704 Jul, [facility] [id number] [place] [address] 39760- 8620 Jul, Seizure disorder G40.909 [facility] [id number] [place] [address] 86088- 6652 Jun, [facility] [id number] [place] [address] 10201- 8814 Jun, [address] [id number] Jun, Perennial allergic rhinitis, unspecified allergic rhinitis trigger J30.89 [facility] [id number] [place] [address] [id number] Jun, [facility] [id number] [place] [address] 82957- 9365 Jun, Seizure disorder G40.909 [place] [address] [id number] Jun, [facility] [id number] [place] [address] [id number] May, [facility] [id number] [place] [address] 81669- 3829 May, [facility] [id number] [place] [address] 78498- 9655 May, [facility] [id number] [place] [address] 63189- 8459 May, [facility] [id number] [place] [address] 87474- 5238 May, History of CVA with residual deficit I69.30 [facility] [id number] [place] [address] 25095- 9748 May, [facility] [address] [facility] [id number], [place] [address]- 3767 May, [facility] [address] [facility] [id number] [place] [address] 066682- 8426 May, [facility] [address] [facility] [id number], [place] [address]- 8142 May, Seizure disorder G40.909 [facility] [id number] [place] [address] 15450- 5991 May, [employer] [address] [place] [address] May, Back pain M54.9 and Seizure disorder G40.909 [facility] [id number] [place] [address] 98947- 7895 Apr, [facility] [id number] [place] [address] 78628- 3713 Apr, Back pain M54.9 [facility] [address], [place] [address]- 6845 Mar, [employer] [address] [place] [address] Mar, Insomnia, unspecified type G47.00 [facility] [address], [place] [address]- 2292 Mar, [facility] [address], [place] [address]- 7003 Feb, [facility] [address], [place] [address]- 3630 Feb, [facility] [id number] [place] [address] 90901- 3512 Feb, [facility] [id number], [place] [address]- 9900 Jan, [facility] [id number] [place] [address] 52823- 7704 Jan, [facility] [address] [place] [address] Jan, Seizure disorder G40.909 and Back pain M54.9 [facility] [id number] [place] [address] 17663- 8410 Dec, [facility] [id number] [place] [address] 96847- 8343 Dec, [facility] [id number] [place] [address] 67957- 3157 Dec, [facility] [id number] [place] [address] 55459- 5567 Nov, [facility] [id number] [place] [address] 90258- 6116 Nov, [facility] [id number] [place] [address] 11343- 4333 Nov, Back pain M54.9 [facility] [id number] [place] [address] 49255- 2323 October, [facility] [id number] [place] [address] 86108- 2364 October, Back pain M54.9 [facility] [id number] [place] [address] 73606- 0098 October, Seizure disorder G40.909 and B12 deficiency E53.8 [facility] [id number] [place] [address] 67863- 4502 Sep, History of CVA with residual deficit I69.30 [facility] [id number] [place] [address] 96208- 2553 Sep, [facility] [id number] [place] [address] 21675- 3454 Sep, [facility] [id number] [place] [address] 95788- 2658 Sep, Back pain M54.9 [facility] [address] [place] [address] 60507- 8272 Sep, Seizure disorder G40.909 [facility] [id number] [place] [address] 84727- 3696 Aug, Back pain M54.9 [facility] [id number] [place] [address] 34537- 6736 18 Aug, 2015 Seizure disorder G40.909 [facility] [id number] [place] [address] 42724- 0433 16 Aug, 2015 Back pain M54.9 [facility] [id number] [place] [address] 80305- 4326 14 Aug, 2015 Heart failure, unspecified I50.9 [place] [facility] [id number] [place] [address] 22994- 7185 14 Aug, 2015 Medication monitoring encounter Z51.81 [facility] [id number] [place] [address] 08730- 7892 15 Jul, 2015 [place] [id number] [place] [address] 14875- 7765 09 Jul, 2015 Seizure disorder G40.909 [facility] [id number] [place] [address] 33103- 5627 05 Jul, 2015 Back pain M54.9 [facility] [id number] [place] [address] 38096- 3043 Jun, [facility] [id number] [place] [address] 82048- 7983 Jun, [place] [facility] [id number] [place] [address] 85289- 9901 Jun, Mental status change R41.82 ; History of CVA with residual deficit I69.30 ; Back pain M54.9 and Seizure disorder G40.909 [facility] [id number], [place] [address]- 6681 Jun, [facility] [address] [id number], [place] [address]- 1580 May, [facility] [address] [facility] [id number], [place] [address]- 8769 Apr, [facility] [address] [place] [address] 237682- 8561 Apr, Medication monitoring encounter Z51.81 [facility] [address] [id number], [place] [address]- 2310 Mar, Vomiting R11.10 [facility] [address] [facility] [id number] [place] [address] 74020- 4968 Mar, [facility] [address], [place] [address]- 5276 Feb, [facility] [address], [place] [address]- 8465 Feb, UTI (urinary tract infection) 599.0 [facility] [address], [place] [address]- 0733 Jan, [facility] [address] [facility] [id number], [place] [address]- 5678 Jan, [facility] [address] [facility] [id number], [place] [address]- 2756 Jan, [facility] [address] [facility] [id number], [place] [address]- 0118 Dec, [facility] [address] [facility] [id number], [place]- 0228 Dec, [facility] [address] [facility] [id number]67[place]- 2386 Dec, [facility] [address], [place] [address]- 0429 Dec, [facility] [place] [facility] [address] [id number] [place] [address]- 4102 Nov, UNKNOWN Nov, [facility] [place] [facility] [address] [id number] [place] [address]- 0549 October, [facility] [place] [facility] [address] [id number] [place] [address]- 7165 Sep, [facility] [place] [facility] [address] [id number] [place] [address]- 8106 Sep, [facility] [place] [facility] [address] [id number] [place] [address]- 2051 Aug, [facility] [place] [facility] [address] [id number] [place] [address]- 0676 Aug, [facility] [place] [facility] [address] [facility] [id number] [place] [address]- 5862 Jul, [facility] [place] [facility] [address] [id number] [place] [address]- 9743 Jul, [facility] [place] [facility] [address] [id number] [place] [address] Jul, [facility] [place] [facility] [address] [facility] [id number] [place] [address] Jul, [facility] [place] [facility] [address] [id number] [place] [address] Jul, [facility] [place] [facility] [address] [id number] [place] [address] Jun, [facility] [place] [facility] [address] [id number] [place] [address] Jun, [facility] [place] [facility] [address] [id number] [place] [address] Jun, [facility] [place] [facility] [address] [id number] [place] [address] Jun, [facility] [place] [facility] [address] [id number] [place] [address] Jun, [facility] [address] [id number] [place] [address] Jun, [facility] [place] [facility] [address] [id number] [place] [address] Jun, [facility] [place] [facility] [address] [id number] [place] [address] Jun, [facility] [place] [facility] [address] [id number] [place] [address] Jun, [facility] [place] [facility] [address] [id number] [place] [address] Jun, [facility] [place] [facility] [address] [id number] [place] [address] Jun, [facility] [place] [facility] [address] [id number] [place] [address] Jun, [facility] [place] [facility] [address] [id number] [place] [address] Jun, [facility] [place] [facility] [address] [id number] [place] [address] Jun, [facility] [place] [facility] [address] [id number] [place] [address] Jun, [facility] [place] [facility] [address] [id number] [place] [address] Jun, [facility] [place] [facility] [address] [id number], [place] [address] Jun, [facility] [place] [facility] [address] [id number] [place] [address] Jun, [facility] [place] [facility] [address] [id number] [place] [address] May, [facility] [place] [facility] [address] [id number] [place] [address] May, [facility] [place] [facility] [address] [id number] [place] [address] May, [facility] [place] [facility] [address] [id number] [place] [address] May, [facility] [place] [facility] [address] [id number] [place] [address] May, [facility] [place] [facility] [address] [id number] [place] [address] May, [facility] [place] [facility] [address] [id number] [place] [address] May, [facility] [place] [facility] [address] [id number] [place] [address] May, [facility] [address] [facility] [id number] [place] [address] May, [address] [place], [place] [id number] May, [facility] [facility] [address] [id number] [place] [address] May, [facility] [place] [facility] [address] [id number] [place] [address] 111[address] May, [facility] [address] [facility] [id number] [place] [address]707 May, [facility] [place] [facility] [address] [id number] [place] [address] 1642 Apr, [facility] [place] [facility] [address] [id number] [place] [address] 5878 Apr, [facility] [place] [facility] [address] [id number] [place] [address]- 6361 Apr, [facility] [place] [facility] [address] [id number] [place] [address] 8826 Apr, [facility] [place] [facility] [address] [id number] [place] [address] 3116 Apr, [facility] [place] [facility] [address] [id number] [place] [address]- 4811 Apr, [facility] [place] [facility] [address] [id number] [place] [address] 8125 Mar, [facility] [place] [facility] [address] [id number] [place] [address]- 8270 Mar, [facility] [place] [facility] [address] [id number] [place] [address]- 1065 Mar, [facility] [place] [facility] [address] [id number] [place] [address] 8205 Mar, [facility] [place] [facility] [address] [id number] [place] [address]- 9259 Mar, [facility] [place] [facility] [address] [id number] [place] [address]- 7911 Mar, [facility] [place] [facility] [address] [id number], [place] [address] 1916 Feb, [facility] [place] [facility] [address] [id number] [place] [address]- 6618 24 Feb, 2014 [facility] [place] [facility] [address] [id number], [place] [address]- 6535 23 Feb, 2014 [facility] [place] [facility] [address] [id number], [place] [address] 8079 23 Feb, 2014 [facility] [place] [facility] [address] [id number], [place] [address] 7998 19 Feb, 2014 [facility] [place] [facility] [address] [id number], [place] [address] 3240 19 Feb, 2014 [facility] [place] [facility] [address] [id number], [place] [address]- 2154 19 Feb, 2013 [facility] [place] [facility] [address] [id number], [place] [address] 9972 19 Feb, 2013 [facility] [place] [facility] [address] [id number], [place] [address] 4307 Feb, [facility] [place] [facility] [address] [id number] [place] [address] 2606 Feb, [facility] [address] [facility] [id number] Feb, [facility] [place] [facility] [address] [id number] [place] [address]- 2546 Feb, [facility] [place] [facility] [address] [id number] [place] [address]- 8154 Jan, [facility] [place] [facility] [address] [id number] [place] [address]- 3541 Jan, [facility] [place] [facility] [address] [id number] [place] [address]- 4955 Dec, [facility] [place] [facility] [address] [id number] [place] [address]- 0136 Dec, [facility] [place] [facility] [address] [id number] [place] [address]- 2001 Dec, [facility] [place] [facility] [address] [id number] [place] [address]- 1554 Dec, [facility] [place] [facility] [address] [id number] [place] [address]- 5902 Dec, [facility] [place] [facility] [address] [id number] [place] [address]- 6862 Dec, [facility] [place] [facility] [address] [id number] [place] [address]- 0295 Dec, [facility] [place] [facility] [address] [id number] [place] [address]- 7267 Dec, [facility] [place] [facility] [address] [id number] [place] [address]- 1401 Dec, [facility] [place] [facility] [address] [id number] [place] [address]- 4932 Dec, [facility] [place] [facility] [address] [id number] [place] [address]- 9539 Nov, [facility] [place] [facility] [address] [id number] [place] [address]- 0218 Nov, [facility] [place] [facility] [address] [id number] [place] [address]- 3655 Nov, [facility] [place] [facility] [address] [id number] [place] [address]- 5101 Nov, [facility] [place] [facility] [address] [id number] [place] [address]- 3755 Nov, [facility] [place] [facility] [address] [id number] [place] [address]- 9407 Nov, [facility] [place] [facility] [address] [id number] [place] [address]- 7104 Nov, [facility] [place] [facility] [address] [id number] [place] [address]- 1396 Nov, [facility] [place] [facility] [address] [id number] [place] [address]- 4278 Nov, [facility] [place] [facility] [address] [id number] [place] [address]- 0219 Nov, [facility] [place] [facility] [address] [id number] [place] [address]- 9710 Nov, [facility] [place] [facility] [address] [id number] [place] [address]- 1213 Nov, [facility] [place] [facility] [address] [id number] [place] [address]- 2841 Nov, [facility] [place] [facility] [address] [id number] [place] [address]- 3741 Nov, [facility] [place] [facility] [address] [id number] [place] [address]- 2245 October, [facility] [place] [facility] [address] [id number] [place] [address]- 6985 October, [facility] [place] [facility] [address] [id number] [place] [address]- 5466 October, [facility] [place] [facility] [address] [id number] [place] [address]- 9241 October, [facility] [place] [facility] [address] [id number] [place] [address]- 9417 October, [facility] [place] [facility] [address] [id number] [place] [address]- 8158 October, [facility] [place] [address] [id number] [place] [address]- 5621 October, [facility] [place] [facility] [address] [id number] [place] [address]- 0976 October, [facility] [address] [id number] [place] [address]- 3810 October, [facility] [address] [id number] [place] [address]- 0317 October, [facility] [address] [id number] [place] [address]- 7645 Sep, [facility] [place] [facility] [address] [id number] [place] [address]- 4762 Sep, [facility] [place] [facility] [address] [id number] [place] [address]- 7006 Sep, [facility] [place] [facility] [address] [id number] [place] [address]- 8644 Sep, [facility] [place] [facility] [address] [id number] [place] [address]- 9044 Sep, [facility] [place] [facility] [address] [id number] [place] [address]- 5554 Sep, [facility] [place] [facility] [address] [id number] [place] [address]- 4689 Sep, [facility] [place] [facility] [address] [id number] [place] [address]- 3821 Sep, [facility] [place] [facility] [address] [id number] [place] [address]- 3066 Sep, [facility] [place] [facility] [address] [id number] [place] [address]- 5900 Sep, [facility] [place] [facility] [address] [id number] [place] [address]- 3121 Aug, [facility] [place] [facility] [address] [id number] [place] [address]- 2961 Aug, [facility] [place] [facility] [address] [id number] [place] [address]- 0216 Aug, [facility] [place] [facility] [address] [id number] [place] [address]- 0072 Aug, [facility] [place] [facility] [address] [facility] [id number] [place] [address]- 7850 Aug, [facility] [place] [facility] [address] [id number] [place] [address]- 8021 Aug, [facility] [place] [facility] [address] [id number] [place] [address]- 7403 Aug, [facility] [place] [facility] [address] [id number] [place] [address]- 6907 Aug, [facility] [place] [facility] [address] [id number] [place] [address]- 8299 Aug, [facility] [place] [facility] [address] [id number] [place] [address]- 0393 Jul, [facility] [place] [facility] [address] [id number] [place] [address]- 3189 Jul, [facility] [place] [facility] [address] [id number] [place] [address]- 8840 Jul, [facility] [place] [facility] [address] [facility] [id number] [place] [address]- 1123 Jul, [facility] [place] [facility] [address] [id number] [place] [address]- 6955 Jul, [facility] [place] [facility] [address] [id number] [place] [address]- 4506 Jul, [facility] [place] [facility] [address] [id number] [place] [address]- 4666 Jul, [facility] [place] [facility] [address] [id number] [place] [address]- 6416 Jul, [facility] [place] [facility] [address] [id number] [place] [address]- 1925 Jul, [facility] [place] [facility] [address] [id number] [place] [address]- 3224 Jul, [facility] [place] [facility] [address] [id number] [place] [address]- 9136 Jul, [facility] [place] [facility] [address] [id number] [place] [address]- 3487 Jul, [facility] [place] [facility] [address] [id number] [place] [address]- 1534 Jul, [facility] [place] [facility] [address] [id number] [place] [address]- 2998 Jul, [facility] [place] [facility] [address] [id number] [place] [address]- 4372 Jul, [facility] [place] [facility] [address] [id number] [place] [address]- 6926 Jul, [facility] [place] [facility] [address] [id number] [place] [address]- 8254 Jun, [facility] [place] [facility] [address] [id number] [place] [address]- 2433 Jun, [facility] [place] [facility] [address] [id number] [place] [address]- 8692 Jun, [facility] [place] [facility] [address] [id number] [place] [address]- 4807 16 Jun, 2013 [facility] [address] [id number] [place] [address]- 3601 Jun, [facility] [place] [facility] [address] [id number] [place] [address]- 2356 Jun, [facility] [address] [id number] [place] [address]- 5179 May, [facility] [place] [facility] [address] [id number] [place] [address]- 4520 May, [facility] [address] [id number] [place] [address]- 6641 May, [facility] [place] [facility] [address] [id number] [place] [address]- 9270 May, [facility] [address] [id number] [place] [address]- 8951 Apr, [facility] [address] [id number] [place] [address]- 8746 Apr, [facility] [place] [facility] [address] [id number] [place] [address]- 9061 Apr, [facility] [address] [id number] [place] [address]- 9709 Apr, [facility] [place] [facility] [address] [id number] [place] [address]- 0167 Apr, [facility] [place] [facility] [address] [id number] [place] [address]- 3992 Apr, [facility] [place] [facility] [address] [id number] [place] [address]- 9485 Apr, [facility] [place] [facility] [address] [id number] [place] [address]- 1944 Apr, [facility] [place] [facility] [address] [id number] [place] [address]- 8277 Apr, [facility] [place] [facility] [address] [id number] [place] [address]- 6015 18 Apr, 2013 [facility] [place] [facility] [address] [id number] [place] [address]- 7533 Apr, [facility] [place] [facility] [address] [id number] [place] [address]- 8699 Apr, [facility] [place] [facility] [address] [id number] [place] [address]- 4328 Mar, [facility] [place] [facility] [address] [id number] [place] [address]- 6794 28 Mar, 2013 [facility] [place] [facility] [address] [id number] [place] [address]- 5562 16 Mar, 2013 [facility] [place] [facility] [address] [id number] [place] [address]- 4164 16 Mar, 2013 [facility] [place] [facility] [address] [id number] [place] [address]- 4014 15 Mar, 2013 [facility] [place] [facility] [address] [id number] [place] [address]- 5415 15 Mar, 2013 [facility] [place] [facility] [address] [id number] [place] [address]- 4463 27 Feb, 2013 [facility] [place] [facility] [address] [id number] [place] [address]- 3941 25 Feb, 2013 [facility] [place] [facility] [address] [id number], [place] [address]- 7840 25 Sep, 2012 [facility] [place] [facility] [address] [id number] [place] [address]- 4878 23 Sep, 2012 [facility] [place] [facility] [address] [id number] [place] [address]- 0458 17 Sep, 2012 [facility] [place] [facility] [address] [id number] [place] [address]- 7161 10 Sep, 2012 [facility] [place] [facility] [address] [id number] [place] [address]- 7556 Feb, [facility] [place] [facility] [address] [id number] [place] [address]- 9241 Jan, [facility] [place] [facility] [address] [id number] [place] [address]- 9388 Jan, [facility] [place] [facility] [address] [id number] [place] [address]- 8032 Jan, [facility] [place] [facility] [address] [id number] [place] [address]- 4047 Jan, [facility] [place] [facility] [address] [id number] [place] [address]- 8524 Jan, [facility] [place] [facility] [address] [id number] [place] [address]- 7802 Jan, [facility] [place] [facility] [address] [id number] [place] [address]- 2114 Jan, [facility] [place] [facility] [address] [id number] [place] [address]- 1616 Dec, [facility] [place] [facility] [address] [id number] [place] [address]- 6455 Dec, [facility] [place] [facility] [address] [id number] [place] [address]- 7741 Dec, [facility] [place] [facility] [address] [id number] [place] [address]- 0160 Dec, [facility] [place] [facility] [address] [id number] [place] [address]- 9512 Dec, [facility] [place] [facility] [address] [id number] [place] [address]- 6644 Dec, [facility] [place] [facility] [address] [id number] [place] [address]- 6399 Nov, [facility] [place] [facility] [address] [id number] [place] [address]- 1615 Nov, [facility] [place] [facility] [address] [id number] [place] [address]- 2547 Nov, [facility] [address] [id number] [place] [address]- 9299 Nov, [facility] [address] [id number] [place] [address]- 1196 October, [facility] [address] [id number] [place] [address]- 5333 October, [facility] [address] [id number] [place] [address]- 1199 October, [facility] [address] [id number] [place] [address]- 3414 October, [facility] [address] [id number] [place] [address]- 2632 Sep, [facility] [address] [id number] [place] [address]- 9861 Sep, [facility] [address] [id number] [place] [address]- 5530 Sep, [facility] [address] [id number] [place] [address]- 3275 Sep, [facility] [address] [id number] [place] [address]- 5816 Sep, [facility] [address] [id number] [place] [address]- 8007 Sep, [facility] [address] [id number] [place] [address]- 6570 Sep, [facility] [address] [id number] [place] [address]- 6487 Sep, [facility] [address] [id number] [place] [address]- 2546 Aug, [facility] [address] [id number] [place] [address]- 3453 Aug, [facility] [address] [id number] [place] [address]- 4198 05 Aug, 2012 [facility] [place] [facility] [address] [id number] [place] [address]- 4076 18 Jul, 2012 [facility] [place] [facility] [address] [id number] [place] [address]- 2542 08 Jul, 2012 [facility] [place] [facility] [address] [id number] [place] [address]- 3499 07 Jul, 2012 [facility] [place] [facility] [address] [id number] [place] [address]- 8496 06 Jul, 2012 [facility] [place] [facility] [address] [id number] [place] [address]- 3358 05 Jul, 2012 [facility] [place] [facility] [address] [id number] [place] [address]- 5734 Jun, [facility] [place] [facility] [address] [id number] [place] [address]- 7451 Jun, [facility] [place] [facility] [address] [id number] [place] [address]- 8402 Jun, [facility] [place] [facility] [address] [id number] [place] [address]- 7224 May, [facility] [place] [facility] [address] [id number] [place] [address]- 0725 May, [facility] [place] [facility] [address] [id number] [place] [address]- 7282 May, [facility] [place] [facility] [address] [id number] [place] [address]- 2610 May, [facility] [place] [facility] [address] [id number] [place] [address]- 2356 May, [facility] [place] [facility] [address] [id number] [place] [address]- 3950 May, [facility] [place] [facility] [address] [id number] [place] [address]- 6738 May, [facility] [place] [facility] [address] [id number] [place] [address]- 3831 Apr, [facility] [place] [facility] [address] [id number] [place] [address]- 0171 Apr, [facility] [place] [facility] [address] [id number] [place] [address]- 3123 Apr, [facility] [place] [facility] [address] [id number] [place] [address]- 4522 Apr, [facility] [place] [facility] [address] [id number] [place] [address]- 4397 Apr, [facility] [place] [facility] [address] [id number] [place] [address]- 1923 Apr, [facility] [place] [facility] [address] [id number] [place] [address]- 1872 Apr, [facility] [place] [facility] [address] [id number] [place] [address]- 5899 Apr, [facility] [place] [facility] [address] [id number] [place] [address] Apr, [facility] [place] [facility] [address] [id number] [place] [address] Apr, [facility] [place] [facility] [address] [id number] [place] [address] Apr, [facility] [place] [facility] [address] [id number], [place] [address] Mar, [facility] [place] [facility] [address] [id number] [place] [address] Mar, [facility] [place] [facility] [address] [id number] [place] [address] Mar, [facility] [place] [facility] [address] [id number] [place] [address] Mar, [facility] [place] [facility] [address] [id number] [place] [address] 23 Mar, 2012 [facility] [place] [facility] [address] [id number] [place] [address] 23 Mar, 2012 [facility] [place] [facility] [address] [id number] [place] [address] 19 Mar, 2012 [facility] [place] [facility] [address] [id number] [place] [address] 19 Mar, 2012 [facility] [place] [facility] [address] [id number] [place] [address] 16 Mar, 2012 [facility] [place] [facility] [address] [id number] [place] [address]- [address] 16 Mar, 2012 [facility] [place] [facility] [address] [id number] [place] [address] 04 Mar, 2012 [facility] [place] [facility] [address] [id number] [place] [address] 28 Sep, 2011 [facility] [place] [facility] [address] [id number] [place] [address]- [address] 27 Sep, 2011 [facility] [place] [facility] [address] [id number], [place] [address] 27 Sep, 2011 [facility] [place] [facility] [address] [id number], [place] [address] 26 Sep, 2011 [facility] [place] [facility] [address] [id number], [place] [address] 24 Sep, 2011 [facility] [place] [facility] [address] [id number] [place] [address] 19 Sep, 2011 [facility] [place] [facility] [address] [id number], [place] [address]- [address] 18 Sep, 2011 [facility] [place] [facility] [address] [id number], [place] [address] 18 Sep, 2011 [facility] [place] [facility] [address] [id number], [place] [address] Feb, [facility] [place] [facility] [address] [id number] [place] [address] Jan, [facility] [place] [facility] [address] [id number] [place] [address] Jan, [facility] [place] [facility] [address] [id number] [place] [address] Jan, [facility] [place] [facility] [address] [id number] [place] [address] Jan, [facility] [place] [facility] [address] [id number] [place] [address] Dec, [facility] [place] [facility] [address] [id number] [place] [address] Dec, [facility] [place] [facility] [address] [id number] [place] [address]- [address] Dec, [facility] [place] [facility] [address] [id number] [place] [address]- [address] Dec, [facility] [place] [facility] [address] [id number] [place] [address]- [address]70 Dec, [facility] [place] [facility] [address] [id number] [place] [address]- [address]53 Dec, [facility] [place] [facility] [address] [id number] [place] [address]- [address] Dec, [facility] [place] [facility] [address] [id number] [place] [address] Dec, [facility] [place] [facility] [address] [id number] [place] [address]- [address] Dec, [facility] [place] [facility] [address] [id number] [place] [address]- [address] Dec, [facility] [place] [facility] [address] [id number] [place] [address]- [address] Dec, [facility] [place] [facility] [address] [id number] [place] [address]- [address]46 09 Dec, 2011 [facility] [place] [facility] [address] [id number] [place] [address]- [address] Dec, [facility] [place] [facility] [address] [id number] [place] [address]- [address] Dec, [facility] [place] [facility] [address] [id number] [place] [address] Nov, [facility] [place] [facility] [address] [id number] [place] [address]- [address] 14 Nov, 2011 [facility] [place] [facility] [address] [id number] [place] [address] Nov, [facility] [place] [facility] [address] [id number] [place] [address] Nov, [facility] [place] [facility] [address] [id number] [place] [address] Nov, [facility] [place] [facility] [address] [id number] [place] [address]- [address] Nov, [facility] [place] [facility] [address] [id number] [place] [address]- [address] October, [facility] [place] [facility] [address] [id number] [place] [address]- [address] October, [facility] [place] [facility] [address] [id number] [place] [address]- [address]246 October, [facility] [place] [facility] [address] [id number] [place] [address]- [address] October, [facility] [place] [facility] [address] [id number] [place] [address]- [address] Sep, [facility] [place] [facility] [address] [id number] [place] [address]- [address] 17 Sep, 2011 [facility] [place] [facility] [address] [id number] [place] [address] Sep, [facility] [address] [facility] [id number], [place] [address] Sep, [facility] [address] [id number], [place] [address] Sep, [facility] [address] [facility] [id number], [place] [address] Aug, [facility] [address] [id number], [place] [address] Aug, [facility] [address] [facility] [id number] [place] [address]- [address]34 Aug, [facility] [address] [facility] [id number], [place] [address] Aug, [facility] [address] [facility] [id number], [place] [address]- [address] Aug, [facility] [address] [facility] [id number], [place] [address]- [address] Aug, [facility] [address] [facility] [id number], [place] [address] Aug, [facility] [address] [facility] [id number], [place] [address] 16 Jul, [address] [facility] [address] [facility] [id number], [place] [address] 16 Jul, 2011 [facility] [place] [facility] [address] [facility] [id number], [place] [address]- [address] 15 Jul, 2011 [facility] [address] [facility] [id number], [place] [address] Jul, [facility] [address] [facility] [id number], [place] [address] Jun, [facility]ly [facility] and [address] [id number] Jun, [facility] [address] [facility] [id number], [place] [address] Jun, [facility] [address] [id number] [place] [address] Jun, [facility] [place] [facility] [address] [id number] [place] [address] Jun, [facility] [place] [facility] [address] [id number] [place] [address] Jun, [facility] [place] [facility] [address] [id number] [place] [address] Jun, [facility] [place] [facility] [address] [id number] [place] [address] Jun, [facility] [place] [facility] [address] [id number] [place] [address] May, [facility] [address] [id number] [place] [address] May, [facility] [place] [facility] [address] [id number] [place] [address] May, [facility] [place] [facility] [address] [id number] [place] [address] May, [facility] [place] [facility] [address] [id number] [place] [address] May, [facility] [place] [facility] [address] [id number] [place] [address] May, [facility] [place] [facility] [address] [id number] [place] [address] May, [facility] [place] [facility] [address] [id number] [place] [address] Apr, [facility] [place] [facility] [address] [id number] [place] [address] Apr, [facility] [place] [facility] [address] [id number] [place] [address] Apr, [facility] [place] [facility] [address] [id number] [place] [address] 27 Mar, 2011 [facility] [place] [facility] [address] [id number] [place] [address] 20 Mar, 2011 [facility] [place] [facility] [address] [id number] [place] [address] 14 Mar, 2011 [facility] [place] [facility] [address] [id number] [place] [address] 11 Mar, 2011 [facility] [place] [facility] [address] [id number] [place] [address] 10 Mar, 2011 [facility] [place] [facility] [address] [id number] [place] [address] 10 Mar, 2011 [facility] [place] [facility] [address] [id number] [place] [address] 10 Mar, 2011 [facility] [place] [facility] [address] [id number] [place] [address] Jan, [facility] [place] [facility] [address] [id number] [place] [address] 27 May, 2010 [facility] [place] [facility] [address] [id number] [place] [address] May, [facility] [place] [facility] [address] [id number] [place] [address] 13 May, 2010 [facility] [place] [facility] [address] [id number] [place] [address] 13 May, 2010 [facility] [place] [facility] [address] [id number] [place] [address] 10 May, 2010 [facility] [place] [facility] [address] [id number] [place] [address] 06 May, 2010 [facility] [place] [facility] [address] [id number] [place] [address] 29 Apr, 2010 [facility] [place] [facility] [address] [id number] [place] [address] Apr, [facility] [address] [id number], [place] [address] Apr, [facility] [address] [id number], [place] [address] Apr, [facility] [address] [facility] [id number], [place] [address] Apr, [facility] [address] [id number], [place] [address] Apr, [facility] [address] [facility] [id number], [place] [address] Apr, [facility] [address] [facility] [id number], [place] [address] Apr, [facility] [address] [facility] [id number], [place] [address] Apr, [facility] [address] [facility] [id number], [place] [address] Apr, [facility] [address] [facility] [id number], [place] [address] Mar, [facility] [address] [facility] [id number], [place] [address] Mar, [facility] [address] [facility] [id number], [place] [address] Mar, [facility] [address] [facility] [id number], [place] [address] Mar, [facility] [address] [facility] [id number], [place] [address] Mar, [facility] [address] [facility] [id number], [place] [address] Dec, [facility] [address] [facility] [id number], [place] [address] Nov, IMMUNIZATIONS No Known Immunizations SOCIAL HISTORY Never Assessed REASON FOR VISIT Controlled Med Refill PLAN OF CARE VITAL SIGNS MEDICATIONS Medication Instructions Dosage Frequency Start Date End Date Duration Status Fentanyl 75 MCG/HR Transdermal every 72 hours 1 patch to skin Jun, 30 days Active RESULTS No Results PROCEDURES [...] [facility] 12/2016 Hospitalization History [facility] 08/2017
--- OUTSIDE RECORDS SUMMARY | 2018-02-04 13:42 | XMS REPORT ---
Author Author NAHOMY BETH [facility] Address [address] [place] [address] Care Team Providers Care Patient Ombudsperson Name Role Phone NAHOMY BETH Unavailable PROBLEMS Type Condition ICD9-CM Code MXP32-YF Code Onset Dates Condition Status SNOMED Code Problem Gastroesophageal reflux disease without esophagitis K21.9 Active 201336879 Problem Anemia, unspecified type D64.9 Active 434358406 Problem History of colon polyps Z86.010 Active 021266513 Problem Unspecified psychosis not due to a substance or known physiological condition F29 Active 93623781 Problem Iron deficiency anemia, unspecified iron deficiency anemia type D50.9 Active 80701713 Problem Personality disorder F60.9 Active 93912595 Problem Factitious disorder imposed on self, recurrent episode F68.10 Active 66391725 Problem Anxiety F41.9 Active 72925062 Problem Age-related osteoporosis without current pathological fracture M81.0 Active 98753390 Problem Back pain M54.9 Active 119023712 Problem Insomnia, unspecified type G47.00 Active 727129942 Problem History of CVA with residual deficit I69.30 Active 098933506 Problem Perennial allergic rhinitis, unspecified allergic rhinitis trigger J30.89 Active 207512353 Problem Seizure disorder G40.909 Active 493774121 Problem Chronic kidney disease, unspecified stage N18.9 Active 542937589 ALLERGIES No Information ENCOUNTERS Encounter Location Date Diagnosis [facility] [id number], [place] [address] Dec, [facility] [address], [place] [address] Nov, [facility] [address] [id number], [place] [address] 1796 Nov, [facility] [id number], [place] [address] 8669 October, [facility] [address], [place] [address] October, [facility] [address], [place] [address] Sep, Unspecified psychosis not due to a substance or known physiological condition F29 ; Personality disorder F60.9 and Factitious disorder imposed on self, recurrent episode F68.10 [facility] [address], [place] [address] Sep, [facility] [id number] [place] [address] 81655- 2529 Sep, [facility] [address], [place] [address] 5025 Sep, [facility] [id number] [place] [address] 88684- 5772 Sep, [facility] [address], [place] [address] Aug, [facility] [address], [place] [address] 29[address] Aug, Back pain M54.9 [facility] [address], [place] [address] Aug, Factitious disorder imposed on self, recurrent episode F68.10 ; Personality disorder F60.9 ; Insomnia, unspecified type G47.00 and Anxiety F41.9 [facility] [address], [place] [address] Aug, Back pain M54.9 ; Iron deficiency anemia, unspecified iron deficiency anemia type D50.9 ; Chronic kidney disease, unspecified stage N18.9 and Breast cancer screening Z12.31 [facility] [id number] [id number] Jul, Back pain M54.9 [facility] [id number] [id number] Jul, [facility] [id number] [id number] Jul, [facility] [id number] [id number] Jun, Back pain M54.9 [facility] [id number] [address] Jun, [facility] [id number] [place] [address] [id number] Jun, Back pain M54.9 [place] [id number] [place] [address] 846286- 8076 Jun, Back pain M54.9 ; Seizure disorder G40.909 and Age-related osteoporosis without current pathological fracture M81.0 [place] [id number] [id number] May, [facility] [id number] [place] [address] [id number]- 2068 May, Back pain M54.9 [place] [address] [place] [address] 12876- 2867 Apr, Back pain M54.9 ; Encounter for immunization Z23 ; Gastroesophageal reflux disease without esophagitis K21.9 ; Age-related osteoporosis without current pathological fracture M81.0 and Chronic pruritus L29.9 [facility] [address], [place] [address] 25[address] 16 Apr, 2017 History of CVA with residual deficit I69.30 [place] [address] [place] [address] 27752- 2575 16 Apr, 2017 Factitious disorder imposed on self, recurrent episode F68.10 and Personality disorder F60.9 [facility] [id number] [id number] 08 Apr, 2017 Back pain M54.9 [facility] [address], [place] [address] 18[address] Mar, Factitious disorder imposed on self, recurrent episode F68.10 [facility] [id number] [place] [address] 67492- 8575 Mar, [facility] [address] [id number] [id number] Mar, [facility] [id number] [place] [address] [id number] Mar, Back pain M54.9 [facility] [address] [place] [address] 50862- 6457 05 Mar, 2017 Back pain M54.9 ; Seizure disorder G40.909 and Age-related osteoporosis without current pathological fracture M81.0 [place] [address], [place] [address] 1599 Feb, History of CVA with residual deficit I69.30 [place] [address] [place] [address] 52666- 1375 Feb, Factitious disorder imposed on self, recurrent episode F68.10 and Personality disorder F60.9 [place] [address] [place] [address] 29402- 1212 15 Feb, 2017 Back pain M54.9 [facility] [address], [place] [address] 98[address] Feb, [place] [address] [place] [address] 97840- 4604 Jan, [facility] [address] [id number] Jan, Age- related osteoporosis without current pathological fracture M81.0 and Allergic state, subsequent encounter T78.40XD [facility] [address], [place] [address] 8[address] Jan, Factitious disorder imposed on self, recurrent episode F68.10 and Personality disorder F60.9 [place] [address] [address]158 Dec, Back pain M54.9 [facility] [address]005[address]100[place], [place] [address] 50[address] Dec, Personality disorder F60.9 and Factitious disorder imposed on self, recurrent episode F68.10 [facility] [id number] [address] Dec, Back pain M54.9 [facility] [id number] [place] [address] [id number] Dec, [facility] [id number] [place] [address] [id number] Dec, [facility] [address], [place] [address]- 1557 Dec, [facility] [address] [place] [address] 28382- 4038 Nov, [facility] [address] [place] [address] 43934- 4909 Nov, Back pain M54.9 ; Anemia, unspecified type D64.9 and History of colon polyps Z86.010 [facility] [address], [place] [address] 6300 Nov, Back pain M54.9 [facility] [id number] [id number] October, Back pain M54.9 On [facility] [address] [id number] October, Back pain M54.9 and Gastroesophageal reflux disease without esophagitis K21.9 [facility] [id number] [id number] Sep, [facility] [address], [place] [address]- 9885 Sep, [facility] [address], [place] [address]- 1266 Sep, [facility] [address], [place] [address]- 2617 Sep, [facility] [address] [facility] [id number], [place] [address]- 8824 Sep, [facility] [address], [place] [address]- 3510 Sep, Seizure disorder G40.909 [facility] [address] [place] [address] 57564- 5960 Sep, Back pain M54.9 [facility] [address] [place] [address] 83200- 3491 Sep, [facility] [address] [place] [address] 75144- 6534 Aug, Back pain M54.9 [facility] [address] [place] [address] 51803- 6104 Aug, Seizure disorder G40.909 [facility] [id number] [id number] Aug, [facility] [id number] [place] [address] [id number] Aug, Back pain M54.9 [facility] [id number] [id number] 14 Aug, 2016 Back pain M54.9 [facility] [id number] [id number] Aug, Back pain M54.9 On License Of [facility] [address] [id number] Jul, Weakness R53.1 [facility] [address], [place] [address]- 2391 Jul, Seizure disorder G40.909 [facility] [address], [place] [address]- 5796 Jul, [facility] [address], [place] [address]- 4541 Jul, Breast cancer screening Z12.39 [facility] [address] [place] [address] 01015- 5108 Jul, [facility] [address] [place] [address] 04683- 6027 Jul, [facility] [id number] [place] [address] 89917- 7889 Jul, [facility] [address] [place] [address] 81042- 0056 Jul, Seizure disorder G40.909 ; Fatigue, unspecified type R53.83 ; Perennial allergic rhinitis, unspecified allergic rhinitis trigger J30.89 and Chronic kidney disease, unspecified stage N18.9 [place] [id number] [place] [address] 47805- 6347 Jul, [facility] [address] [place] [address] 56727- 6571 Jul, Seizure disorder G40.909 [place] [id number] [place] [address] 51147- 6699 Jun, [place] [address] [place] [address] 59029- 4050 Jun, On License Of [facility] [address] [place] [address] [id number] Jun, Perennial allergic rhinitis, unspecified allergic rhinitis trigger J30.89 [facility] [id number], [place] [id number] Jun, [facility] [address] [place] [address] 16141- 7674 Jun, Seizure disorder G40.909 [facility] [id number] [id number] Jun, [facility] [id number] [place] [address] [id number] May, [facility] [id number] [place] [address] 53329- 5653 May, [facility] [id number] [place] [address] 55590- 2770 May, [facility] [id number] [place] [address] 20784- 5060 May, [facility] [id number] [place] [address] 37151- 2379 May, History of CVA with residual deficit I69.30 [facility] [id number] [place] [address] 91540- 2989 May, [facility] [id number] [place] [address] 20416- 3400 May, [facility] [id number] [place] [address] 92149- 9466 May, [facility] [address] [place] [address] 66626- 2664 May, Seizure disorder G40.909 [facility] [address] [place] [address] 43425- 8874 May, [address] [place] [address] May, Back pain M54.9 and Seizure disorder G40.909 [facility] [address] [place] [address] 04310- 5823 Apr, [facility] [address] [place] [address] 03882- 8128 Apr, Back pain M54.9 [facility] [address] [place] [address] 69415- 4526 Mar, [address] [place] [address] Mar, Insomnia, unspecified type G47.00 [facility] [address] [facility] [id number], [place] [address]- 9707 Mar, [facility] [address] [facility] [id number] [place] [address] 13596- 6467 Feb, [facility] [address] [facility] [id number], [place] [address]- 7657 Feb, [facility] [address] [facility] [id number] [place] [address] 89684- 1881 Feb, [facility] [address] [facility] [id number], [place] [address]- 3338 Jan, [facility] [address] [facility] [id number] [place] [address] 23694- 8365 Jan, [facility] [address] [place] [address] Jan, Seizure disorder G40.909 and Back pain M54.9 [facility] [address] [id number], [place] [address]- 9485 Dec, [facility] [address] [place] [address] 81568- 9241 Dec, [facility] [address], [place] [address]- 5273 Dec, [facility] [address], [place] [address]- 2958 Nov, [facility] [address] [facility] [id number], [place] [address]- 3220 Nov, [facility] [address] [facility] [id number], [place] [address]- 3606 Nov, Back pain M54.9 [facility] [address] [facility] [id number], [place] [address]- 5022 October, [facility] [address] [id number], [place] [address]- 9195 October, Back pain M54.9 [facility] [id number] [place] [address] 55193- 6262 October, Seizure disorder G40.909 and B12 deficiency E53.8 [facility] [id number] [place] [address] 34182- 3461 Sep, History of CVA with residual deficit I69.30 [facility] [id number] [place] [address] 64415- 6635 Sep, [facility] [id number] [place] [address] 14749- 2847 Sep, [facility] [address] 03897- 6048 Sep, Back pain M54.9 [facility] [id number] [place] [address] 23952- 4477 Sep, Seizure disorder G40.909 [facility] [id number] [place] [address] 75824- 5619 Aug, Back pain M54.9 [facility] [id number] [place] [address] 35466- 0931 18 Aug, 2015 Seizure disorder G40.909 [facility] [id number] [place] [address] 10367- 9512 16 Aug, 2015 Back pain M54.9 [facility] [id number] [place] [address] 54931- 1123 14 Aug, 2015 Heart failure, unspecified I50.9 [facility] [id number] [place] [address] 65559- 6922 14 Aug, 2015 Medication monitoring encounter Z51.81 [facility] [id number] [place] [address] 56750- 4486 15 Jul, 2015 [facility] [id number] [place] [address] 41980- 4724 09 Jul, 2015 Seizure disorder G40.909 [facility] [address], [place] [address]- 9862 Jul, Back pain M54.9 [facility] [id number] [place] [address] 57558- 3303 Jun, [facility] [id number] [place] [address] 89720- 8440 Jun, [facility] [id number] [place] [address] 15037- 0574 Jun, Mental status change R41.82 ; History of CVA with residual deficit I69.30 ; Back pain M54.9 and Seizure disorder G40.909 [facility] [id number] [place] [address] 52846- 4061 Jun, [facility] [id number] [place] [address] 93202- 3563 May, [facility] [id number] [place] [address] 60165- 8593 Apr, [facility] [id number] [place] [address] 88327- 0582 Apr, Medication monitoring encounter Z51.81 [facility] [id number] [place] [address] 68714- 4730 Mar, Vomiting R11.10 [facility] [id number] [place] [address] 40093- 5931 Mar, [facility] [address] [place] [address] 33418- 4744 18 Feb, 2015 [facility] [id number] [place] [address] 92340- 0625 10 Feb, 2015 UTI (urinary tract infection) 599.0 [facility] [address] [place] [address] 02092- 2271 Jan, [facility] [id number] [place] [address] 37301- 2596 Jan, [facility] [place] [facility] [address] [id number] [place] [address]- 2546 Jan, [facility] [place] [facility] [address] [id number] [place] [address]- 2546 Dec, [facility] [place] [facility] [address] [facility] [id number] [place] [address]- 2546 Dec, [facility] [place] [facility] [address] [id number] [place] [address]- 2546 Dec, [facility] [place] [facility] [address] [id number] [place] [address]- 2546 Dec, [facility] [place] [facility] [address] [facility] [id number] [place] [address]- 2546 Nov, UNKNOWN Nov, [facility] [place] [facility] [address] [facility] [id number] [place] [address]- 0326 October, [facility] [place] [facility] [address] [facility] [id number] [place] [address]- 0103 Sep, [facility] [place] [facility] [address] [facility] [id number] [place] [address]- 0621 Sep, [facility] [place] [facility] [address] [facility] [id number] [place] [address]- 2546 Aug, [facility] [place] [facility] [address] [facility] [id number] [place] [address]- 2546 Aug, [facility] [place] [facility] [address] [id number] [place] [address]- 2546 Jul, [facility] [place] [facility] [address] [id number] [place] [address]- 2546 Jul, [facility] [place] [facility] [address] [id number] [place] [address]- 2546 Jul, [facility] [place] [facility] [address] [facility] [id number] [place] [address]- 2546 Jul, [facility] [place] [facility] [address] [id number] [place] [address]- 7815 Jul, [facility] [place] [facility] [address] [id number] [place] [address]- 8152 Jun, [facility] [place] [facility] [address] [id number] [place] [address]- 4871 Jun, [facility] [place] [facility] [address] [id number] [place] [address]- 1433 Jun, [facility] [place] [facility] [address] [id number] [place] [address]- 2247 Jun, [facility] [place] [facility] [address] [id number] [place] [address]- 8548 Jun, [facility] [place] [facility] [address] [id number] [place] [address]- 3402 Jun, [facility] [place] [facility] [address] [id number] [place] [address]- 7948 Jun, [facility] [place] [facility] [address] [id number] [place] [address]- 4649 Jun, [facility] [place] [facility] [address] [id number] [place] [address]- 0833 Jun, [facility] [place] [facility] [address] [id number] [place] [address]- 8457 Jun, [facility] [place] [facility] [address] [id number] [place] [address]- 3293 Jun, [facility] [place] [facility] [address] [id number] [place] [address]- 9214 Jun, [facility] [place] [facility] [address] [id number] [place] [address]- 0311 Jun, [facility] [place] [facility] [address] [id number] [place] [address]- 2260 Jun, [facility] [place] [facility] [address] [id number], [place] [address]- 7110 Jun, [facility] [address] [id number] [place] [address]- 0190 Jun, [facility] [address] [id number] [place] [address] Jun, [facility] [address] [id number] [place] [address] Jun, [facility] [address] [id number] [place] [address] May, [facility] [address] [id number] [place] [address] May, [facility] [address] [id number] [place] [address] May, [facility] [address] [id number] [place] [address] May, [facility] [address] [id number] [place] [address] May, [facility] [address] [id number] [place] [address] May, [facility] [address] [id number] [place] [address] May, [facility] [address] [id number], [place] [address] May, [facility] [address] [id number], [place] [address] May, [facility] [address] [place] [id number] May, [facility] [address] [id number], [place] [address] May, [facility] [address] [id number] [place] [address] May, [facility] [address] [id number] [place] [address] May, [facility] [place] [facility] [address] [id number] [place] [address] Apr, [facility] [place] [facility] [address] [id number] [place] [address] Apr, [facility] [place] [facility] [address] [id number] [place] [address] Apr, [facility] [place] [facility] [address] [id number] [place] [address] Apr, [facility] [place] [facility] [address] [id number] [place] [address] Apr, [facility] [place] [facility] [address] [id number] [place] [address] Apr, [facility] [place] [facility] [address] [id number] [place] [address] Mar, [facility] [place] [facility] [address] [id number] [place] [address] Mar, [facility] [place] [facility] [address] [id number] [place] [address] Mar, [facility] [place] [facility] [address] [id number] [place] [address] Mar, [facility] [place] [facility] [address] [id number] [place] [address] Mar, [facility] [place] [facility] [address] [id number] [place] [address] Mar, [facility] [place] [facility] [address] [id number] [place] [address] Feb, [facility] [place] [facility] [address] [id number] [place] [address] Feb, [facility] [place] [facility] [address] [id number] [place] [address] Feb, [facility] [place] [facility] [address] [id number] [place] [address] 3629 Feb, [facility] [place] [facility] [address] [id number] [place] [address] 4475 Feb, [facility] [place] [facility] [address] [id number] [place] [address] 3757 Feb, [facility] [place] [facility] [address] [id number] [place] [address] 8669 Feb, [facility] [place] [facility] [address] [id number] [place] [address]- 0284 Feb, [facility] [place] [facility] [address] [id number] [place] [address] 2075 Feb, [facility] [place] [facility] [address] [id number] [place] [address] 2[address] Feb, [facility] [address] [place] [id number] Feb, [facility] [place] [facility] [address] [id number] [place] [address] 3[address] Feb, [facility] [place] [facility] [address] [id number] [place] [address] 4781 Jan, [facility] [place] [facility] [address] [id number] [place] [address] 0729 Jan, [facility] [place] [facility] [address] [id number] [place] [address] 9849 Dec, [facility] [place] [facility] [address] [id number] [place] [address] 6074 Dec, [facility] [place] [facility] [address] [id number] [place] [address]- 9398 Dec, [facility] [place] [facility] [address] [id number] [place] [address]- 5902 Dec, [facility] [place] [facility] [address] [id number] [place] [address]- 8171 Dec, [facility] [place] [facility] [address] [id number] [place] [address]- 6712 Dec, [facility] [place] [facility] [address] [id number] [place] [address]- 1086 Dec, [facility] [place] [facility] [address] [id number] [place] [address]- 1355 Dec, [facility] [place] [facility] [address] [id number] [place] [address]- 4955 Dec, [facility] [place] [facility] [address] [id number] [place] [address]- 4081 Dec, [facility] [place] [facility] [address] [id number] [place] [address]- 6737 Nov, [facility] [place] [facility] [address] [id number] [place] [address]- 1372 Nov, [facility] [place] [facility] [address] [id number] [place] [address]- 2079 Nov, [facility] [place] [facility] [address] [id number] [place] [address]- 0023 Nov, [facility] [place] [facility] [address] [id number] [place] [address]- 8801 Nov, [facility] [place] [facility] [address] [id number] [place] [address]- 8644 Nov, [facility] [place] [facility] [address] [id number] [place] [address]- 6471 Nov, [facility] [place] [facility] [address] [id number] [place] [address]- 3853 Nov, [facility] [place] [facility] [address] [id number] [place] [address]- 9251 Nov, [facility] [place] [facility] [address] [id number] [place] [address]- 6245 Nov, [facility] [place] [facility] [address] [id number] [place] [address]- 8230 Nov, [facility] [place] [facility] [address] [id number] [place] [address]- 5131 Nov, [facility] [place] [facility] [address] [id number] [place] [address]- 8562 Nov, [facility] [place] [facility] [address] [id number] [place] [address]- 7428 Nov, [facility] [place] [facility] [address] [id number] [place] [address] 1976 October, [facility] [place] [facility] [address] [id number] [place] [address]- 3761 October, [facility] [place] [facility] [address] [id number] [place] [address]- 5798 October, [facility] [place] [facility] [address] [id number] [place] [address]- 4790 October, [facility] [place] [facility] [address] [id number] [place] [address]- 0233 October, [facility] [place] [facility] [address] [id number] [place] [address]- 6685 October, [facility] [place] [facility] [address] [id number] [place] [address]- 0278 October, [facility] [place] [facility] [address] [id number] [place] [address] 1168 October, [facility] [place] [facility] [address] [id number] [place] [address]- 1482 October, [facility] [place] [facility] [address] [id number] [place] [address]- 6047 October, [facility] [place] [facility] [address] [id number] [place] [address]- 1312 Sep, [facility] [place] [facility] [address] [id number] [place] [address]- 4846 Sep, [facility] [place] [facility] [address] [id number] [place] [address]- 6930 14 Sep, 2013 [facility] [place] [facility] [address] [id number] [place] [address]- 2726 Sep, [facility] [place] [facility] [address] [id number] [place] [address] Sep, [facility] [place] [facility] [address] [id number] [place] [address]- 3706 Sep, [facility] [place] [facility] [address] [id number] [place] [address]- 0671 Sep, [facility] [place] [facility] [address] [id number] [place] [address]- 7037 Sep, [facility] [place] [facility] [address] [id number] [place] [address]- 6335 Sep, [facility] [place] [facility] [address] [id number] [place] [address]- 4644 Sep, [facility] [place] [facility] [address] [id number] [place] [address]- 7933 Aug, [facility] [place] [facility] [address] [id number] [place] [address]- 9609 19 Aug, 2013 [facility] [place] [facility] [address] [id number] [place] [address]- 1478 Aug, [facility] [place] [facility] [address] [id number] [place] [address]- 6875 10 Aug, 2013 [facility] [place] [facility] [address] [id number] [place] [address]- 1754 06 Aug, 2013 [facility] [place] [facility] [address] [id number] [place] [address]- 0386 06 Aug, 2013 [facility] [place] [facility] [address] [id number] [place] [address]- 8321 05 Aug, 2013 [facility] [place] [facility] [address] [id number] [place] [address]- 3652 Aug, [facility] [place] [facility] [address] [facility] [id number] [place] [address]- 5871 Aug, [facility] [place] [facility] [address] [facility] [id number] [place] [address]- 1836 Jul, [facility] [place] [facility] [address] [facility] [id number] [place] [address]- 9426 Jul, [facility] [place] [facility] [address] [facility] [id number] [place] [address]- 4804 Jul, [facility] [place] [facility] [address] [id number] [place] [address]- 3309 Jul, [facility] [place] [facility] [address] [facility] [id number] [place] [address]- 9620 Jul, [facility] [place] [facility] [address] [facility] [id number] [place] [address]- 3640 Jul, [facility] [place] [facility] [address] [facility] [id number] [place] [address]- 6991 Jul, [facility] [place] [facility] [address] [facility] [id number] [place] [address]- 2989 Jul, 2013 [facility] [place] [facility] [address] [facility] [id number] [place] [address]- 6465 Jul, [facility] [place] [facility] [address] [facility] [id number] [place] [address]- 1865 Jul, 2013 [facility] [place] [facility] [address] [facility] [id number] [place] [address]- 2549 Jul, [facility] [place] [facility] [address] [facility] [id number] [place] [address]- 8333 Jul, [facility] [place] [facility] [address] [facility] [id number] [place] [address]- 4134 Jul, [facility] [place] [facility] [address] [facility] [id number] [place] [address]- 1204 Jul, [facility] [place] [facility] [address] [id number] [place] [address]- 7929 Jul, [facility] [place] [facility] [address] [id number] [place] [address] Jul, [facility] [place] [facility] [address] [id number] [place] [address]- 2169 Jun, [facility] [place] [facility] [address] [id number] [place] [address]- 8672 Jun, [facility] [place] [facility] [address] [id number] [place] [address]- 8006 Jun, [facility] [place] [facility] [address] [id number] [place] [address]- 1903 Jun, [facility] [place] [facility] [address] [id number] [place] [address]- 1790 Jun, [facility] [place] [facility] [address] [id number] [place] [address]- 7431 Jun, [facility] [place] [facility] [address] [id number] [place] [address]- 7077 May, [facility] [place] [facility] [address] [id number] [place] [address]- 2468 May, [facility] [place] [facility] [address] [id number] [place] [address]- 4608 May, [facility] [place] [facility] [address] [id number] [place] [address]- 9497 May, [facility] [place] [facility] [address] [id number] [place] [address]- 2819 Apr, [facility] [place] [facility] [address] [id number] [place] [address]- 4867 Apr, [facility] [place] [facility] [address] [id number] [place] [address]- 1005 Apr, [facility] [place] [facility] [address] [id number] [place] [address]- 3722 Apr, [facility] [place] [facility] [address] [id number] [place] [address]- 7726 Apr, [facility] [place] [facility] [address] [id number], [place] [address]- 3871 Apr, [facility] [place] [facility] [address] [id number] [place] [address]- 6718 Apr, [facility] [place] [facility] [address] [id number] [place] [address]- 7588 Apr, [facility] [place] [facility] [address] [id number] [place] [address]- 1512 Apr, [facility] [place] [facility] [address] [id number] [place] [address]- 5475 Apr, [facility] [place] [facility] [address] [id number], [place] [address]- 8411 Apr, [facility] [place] [facility] [address] [id number], [place] [address]- 1411 Apr, [facility] [place] [facility] [address] [id number] [place] [address]- 7882 28 Mar, 2013 [facility] [place] [facility] [address] [id number], [place] [address]- 2271 28 Mar, 2013 [facility] [place] [facility] [address] [id number], [place] [address]- 8806 16 Mar, 2013 [facility] [place] [facility] [address] [id number], [place] [address]- 3910 16 Mar, 2013 [facility] [place] [facility] [address] [id number], [place] [address]- 0900 15 Mar, 2013 [facility] [place] [facility] [address] [id number], [place] [address]- 5524 15 Mar, 2013 [facility] [place] [facility] [address] [id number], [place] [address]- 7911 27 Feb, 2013 [facility] [place] [facility] [address] [id number] [place] [address] 2543 25 Feb, 2012 [facility] [place] [facility] [address] [id number] [place] [address] 2546 25 Feb, 2012 [facility] [place] [facility] [address] [id number] [place] [address] 2546 23 Feb, 2012 [facility] [place] [facility] [address] [id number] [place] [address] 2546 17 Feb, 2012 [facility] [place] [facility] [address] [id number] [place] [address] 2549 10 Feb, 2013 [facility] [place] [facility] [address] [id number] [place] [address]- 0946 04 Feb, 2013 [facility] [place] [facility] [address] [id number] [place] [address]- 6044 30 Jan, 2013 [facility] [place] [facility] [address] [id number] [place] [address]- 7893 Jan, [facility] [place] [facility] [address] [id number] [place] [address]- 7487 Jan, [facility] [place] [facility] [address] [id number] [place] [address]- 0201 Jan, [facility] [place] [facility] [address] [id number] [place] [address]- 4691 Jan, [facility] [place] [facility] [address] [id number] [place] [address] 2541 Jan, [facility] [place] [facility] [address] [id number] [place] [address] 2542 Jan, [facility] [place] [facility] [address] [id number] [place] [address] 2549 Dec, [facility] [place] [facility] [address] [id number] [place] [address] 2544 Dec, [facility] [place] [facility] [address] [id number] [place] [address]- 6621 Dec, [facility] [address] [id number] [place] [address]- 5492 Dec, [facility] [place] [facility] [address] [id number] [place] [address]- 7140 Dec, [facility] [place] [facility] [address] [id number] [place] [address]- 4901 Dec, [facility] [place] [facility] [address] [id number] [place] [address]- 8266 Nov, [facility] [address] [id number] [place] [address]- 3416 Nov, [facility] [place] [facility] [address] [id number] [place] [address]- 5610 Nov, [facility] [place] [facility] [address] [id number] [place] [address]- 3174 Nov, [facility] [place] [facility] [address] [id number] [place] [address]- 7186 October, [facility] [place] [facility] [address] [id number] [place] [address]- 2280 October, [facility] [place] [facility] [address] [id number] [place] [address]- 1207 October, [facility] [place] [facility] [address] [id number] [place] [address]- 1429 October, [facility] [place] [facility] [address] [id number], [place] [address]- 1719 30 Sep, 2012 [facility] [place] [facility] [address] [id number] [place] [address]- 3027 19 Sep, 2012 [facility] [place] [facility] [address] [id number] [place] [address]- 1626 16 Sep, 2012 [facility] [place] [facility] [address] [id number] [place] [address]- 9002 12 Sep, 2012 [facility] [place] [facility] [address] [id number] [place] [address]- 7712 04 Sep, 2012 [facility] [address] [id number] [place] [address]- 6109 04 Sep, 2012 [facility] [address] [id number] [place] [address]- 6056 Sep, [facility] [address] [id number] [place] [address]- 3796 Sep, [facility] [address] [id number] [place] [address]- 4968 Aug, [facility] [address] [id number] [place] [address]- 0938 Aug, [facility] [address] [id number] [place] [address]- 8276 Aug, [facility] [address] [facility] [id number] [place] [address]- 4730 18 Jul, 2012 [facility] [address] [id number] [place] [address]- 0129 08 Jul, 2012 [facility] [address] [id number] [address]- 1026 Jul, [facility] [address] [facility] [id number] [place] [address]- 6144 Jul, [facility] [address] [facility] [id number] [place] [address]- 2546 05 Jul, 2012 [facility] [address] [id number] [place] [address]- 4102 Jun, [facility] [place] [facility] [address] [id number] [place] [address]- 4006 Jun, [facility] [address] [facility] [id number] [place] [address]- 2546 Jun, [facility] [place] [facility] [address] [facility] [id number] [place] [address]- 5780 May, [facility] [place] [facility] [address] [id number] [place] [address]- 4497 May, [facility] [place] [facility] [address] [id number] [place] [address]- 1459 May, [facility] [place] [facility] [address] [id number] [place] [address]- 1353 May, [facility] [place] [facility] [address] [id number] [place] [address]- 6347 May, [facility] [place] [facility] [address] [id number] [place] [address]- 2781 May, [facility] [place] [facility] [address] [id number] [place] [address]- 0854 May, [facility] [place] [facility] [address] [id number] [place] [address]- 7457 Apr, [facility] [place] [facility] [address] [id number] [place] [address]- 4329 Apr, [facility] [place] [facility] [address] [id number] [place] [address]- 7273 Apr, [facility] [place] [facility] [address] [id number] [place] [address]- 5926 Apr, [facility] [place] [facility] [address] [id number], [place] [address]- 9053 Apr, [facility] [place] [facility] [address] [id number], [place] [address]- 3856 Apr, [facility] [place] [facility] [address] [id number] [place] [address]- 1249 Apr, [facility] [place] [facility] [address] [id number], [place] [address]- 3142 Apr, [facility] [place] [facility] [address] [id number] [place] [address]- 5509 Apr, [facility] [place] [facility] [address] [id number] [place] [address]- 5469 Apr, [facility] [place] [facility] [address] [id number] [place] [address]- 3334 Apr, [facility] [place] [facility] [address] [id number] [place] 8685 Mar, [facility] [place] [facility] [address] [id number] [place] [address]- 7012 Mar, [facility] [place] [facility] [address] [id number] [place] 2314 Mar, [facility] [place] [facility] [address] [id number] [place] [address]- 9469 Mar, [facility] [place] [facility] [address] [id number] [place] [address]- 9356 Mar, [facility] [place] [facility] [address] [id number] [place] [address]- 1343 Mar, [facility] [place] [facility] [address] [id number] [place] [address]- 4577 Mar, [facility] [place] [facility] [address] [id number] [place] [address]- 4517 19 Mar, 2012 [facility] [place] [facility] [address] [facility] [id number] [place] 7001 Mar, [facility] [place] [facility] [address] [id number] [place] [address]- 4902 16 Mar, 2012 [facility] [place] [facility] [address] [id number], [place] [address]- 9759 Mar, [facility] [place] [facility] [address] [id number] [place] [address]- 4621 2012 [facility] [place] [facility] [address] [id number] [place] [address]- 3088 27 Feb, 2012 [facility] [place] [facility] [address] [facility] [id number], [place] [address]- 9997 27 Feb, 2012 [facility] [place] [facility] [address] [id number] [place] [address]- 8037 26 Feb, 2012 [facility] [place] [facility] [address] [id number] [place] [address]- 0826 24 Feb, 2012 [facility] [place] [facility] [address] [id number] [place] [address] 2546 Feb, [facility] [place] [facility] [address] [id number] [place] [address]- 8016 Feb, [facility] [place] [facility] [address] [id number] [place] [address] 2542 Feb, [facility] [place] [facility] [address] [id number] [place] [address]- 2267 Feb, [facility] [place] [facility] [address] [id number] [place] [address] Jan, [facility] [place] [facility] [address] [id number] [place] [address] Jan, [facility] [place] [facility] [address] [id number] [place] [address] Jan, [facility] [place] [facility] [address] [id number] [place] [address] Jan, [facility] [place] [facility] [address] [id number] [place] [address] Dec, [facility] [place] [facility] [address] [id number] [place] [address] Dec, [facility] [place] [facility] [address] [id number] [place] [address] Dec, [facility] [place] [facility] [address] [id number] [place] [address] Dec, [facility] [place] [facility] [address] [id number] [place] [address] Dec, [facility] [place] [facility] [address] [id number] [place] [address] Dec, [facility] [place] [facility] [address] [id number] [place] [address] Dec, [facility] [place] [facility] [address] [id number] [place] [address] Dec, [facility] [place] [facility] [address] [id number] [place] [address] Dec, [facility] [place] [facility] [address] [id number] [place] [address] Dec, [facility] [place] [facility] [address] [id number] [place] [address]474 Dec, [facility] [place] [facility] [address] [id number] [place] [address] 4732 Dec, [facility] [place] [facility] [address] [id number] [place] [address] 38[address] Dec, [facility] [place] [facility] [address] [id number] [place] [address]- 116[address] Dec, [facility] [place] [facility] [address] [id number] [place] [address] Nov, [facility] [place] [facility] [address] [id number] [place] [address]- [address] Nov, [facility] [place] [facility] [address] [id number] [place] [address]- [address]70 Nov, [facility] [place] [facility] [address] [id number] [place] [address]- 1727 Nov, [facility] [place] [facility] [address] [id number] [place] [address]- 9568 Nov, [facility] [place] [facility] [address] [id number] [place] [address]- [address]16 Nov, [facility] [place] [facility] [address] [id number] [place] [address] October, [facility] [place] [facility] [address] [id number] [place] [address] October, [facility] [address] [id number] [place] [address] 72[address] October, [facility] [address] [id number] [place] [address] October, [facility] [address] [id number] [place] [address] Sep, [facility] [address] [id number] [place] [address] 17 Sep, 2011 [facility] [address] [id number] [place] [address] Sep, [facility] [address] [id number] [place] [address]109 Sep, [facility] [address] [id number] [place] [address]13 Sep, [facility] [address] [id number] [place] [address] 1769 Aug, [facility] [address] [id number] [place] [address]- [address]298 Aug, [facility] [address] [id number] [place] [address] 8[address] Aug, [facility] [address] [id number] [place] [address] 3866 Aug, [facility] [address] [id number] [place] [address] Aug, [facility] [address] [id number] [place] [address] 8628 Aug, [facility] [address] [id number] [place] [address] 4636 Aug, [facility] [address] [id number] [place] [address]- [address]60 16 Jul, 2011 [facility] [address] [id number] [place] [address]- [address] 16 Jul, 2011 [facility] [address] [id number] [place] [address] 8066 Jul, [facility] [address] [facility] [id number] [place] [address] Jul, [facility] [address] [facility] [id number] [place] [address] Jun, [facility] [address] [id number] Jun, [facility] [address] [id number] [place] [address] Jun, [facility] [address] [facility] [id number] [place] [address]- [address]689 Jun, [facility] [address] [facility] [id number] [place] [address]- 6618 Jun, [facility] [id number] [address] Jun, [facility] [address] [facility] [id number] [place] [address]- [address]191 Jun, [facility] [address] [facility] [id number] [place] [address]- 8643 Jun, [facility] [address] [id number], [place] [address] May, [facility] [address] [id number] [place] [address]- [address]561 May, [facility] [address] [id number] [place] [id number] [address] May, [facility] [address] [id number] [place] [address]- 9028 May, [facility] [address] [id number], [place] [address] May, [facility] [place] [facility] [address] [id number] [place] [address] May, [facility] [place] [facility] [address] [id number] [place] [address]- 6106 May, [facility] [place] [facility] [address] [id number] [place] [address]- 5050 Apr, [facility] [place] [facility] [address] [id number] [place] [address]- 6555 Apr, [facility] [place] [facility] [address] [id number] [place] [address]- 1054 Apr, [facility] [place] [facility] [address] [id number] [place] [address]- 3134 Mar, [facility] [place] [facility] [address] [id number] [place] [address]- [address]800 20 Mar, 2011 [facility] [place] [facility] [address] [id number] [place] [address]- 6141 14 Mar, 2011 [facility] [place] [facility] [address] [id number] [place] [address] Mar, [facility] [place] [facility] [address] [id number] [place] [address] Mar, [facility] [place] [facility] [address] [id number], [place] [address] 10 Mar, 2011 [facility] [place] [facility] [address] [id number], [place] [address] 10 Mar, 2011 [facility] [place] [facility] [address] [id number] [place] [address] Jan, [facility] [place] [facility] [address] [id number] [place] [address] May, [facility] [place] [facility] [address] [id number] [place] [address] May, [facility] [place] [facility] [address] [id number] [place] [address] 13 May, 2010 [facility] [address] [id number] [place] [address] 13 May, 2010 [facility] [place] [facility] [address] [id number] [place] [address] 10 May, 2010 [facility] [address] [id number] [place] [address] 06 May, 2010 [facility] [place] [facility] [address] [id number] [place] [address] 29 Apr, 2010 [facility] [address] [id number] [place] [address], [place] [address] 26 Apr, 2010 [facility] [address] [id number] [place] [address] 19 Apr, 2010 [facility] [address] [facility] [id number] [place] [address] 18 Apr, 2010 [facility] [address] [id number] [place] [address] 15 Apr, 2010 [facility] [address] [facility] [id number] [place] [address] Apr, [facility] [address] [facility] [id number] [place] [address] Apr, [facility] [place] [facility] [address] [id number] [place] [address] Apr, [facility] [place] [facility] [address] [facility] [id number] [place] [address] Apr, [facility] [place] [facility] [address] [id number] [place] [address] Apr, [facility] [place] [facility] [address] [facility] [id number] [place] [address] Mar, [facility] [place] [facility] [address] [id number] [place] [address] Mar, [facility] [address] [facility] [id number], [place] [address] Mar, [facility] [address] [id number], [place] [address] Mar, [facility] [address] [facility] [id number], [place] [address] Mar, [facility] [address] [id number], [place] [address] Dec, [facility] [address] [facility] [id number], [place] [address] Nov, IMMUNIZATIONS No Known Immunizations SOCIAL HISTORY Never Assessed REASON FOR VISIT med change PLAN OF CARE VITAL SIGNS MEDICATIONS Unknown [...] graft, cholecysectomy Hospitalization History [facility] 12/2016
--- NOTE | 2018-02-04 13:58 | Diagnostic Imaging Report ---
Indication: Possible stroke. Frontal chest obtained at 1:42 hours p.m. compared to 09/19/2017 There is cardiomegaly with central vascular congestion and mild interstitial edema. There is no overt consolidation or pneumothorax or pleural fluid. Port-A-Cath is seen in the right chest unchanged from the prior study. Impression: Cardiomegaly with central vascular congestion with some interstitial edema. No pleural fluid or overt consolidation. Dictated by: Dictated on workstation # [id number]
--- OUTSIDE RECORDS SUMMARY | 2018-02-04 13:58 | XMS REPORT | Continuity of Care Document ---
Author Author [facility] Address Unknown Phone Unavailable Allergies Active Description Code Type Severity Reaction Onset Reported/Identified Relationship to Patient Clinical Status Yes acetaminophen [id number] Drug Allergy Unknown N/A 03/18/2006 Yes ALL FISH ALL FISH Unknown N/A 03/18/2006 Yes amitriptyline [id number] Drug Allergy Unknown N/A 03/18/2006 Yes ANITHISTAMINES ANITHISTAMINES Unknown N/A 03/18/2006 Yes aspirin [id number] Drug Allergy Unknown N/A 03/18/2006 Yes Caramiphen [id number] Drug Allergy Unknown N/A 03/18/2006 Yes carbamazepine [id number] Drug Allergy Unknown N/A 03/18/2006 Yes clarithromycin [id number] Drug Allergy Unknown N/A 03/18/2006 Yes codeine [id number] Drug Allergy Unknown N/A 03/18/2006 Yes COFFEE COFFEE Unknown N/A 03/18/2006 Yes diazepam [id number] Drug Allergy Unknown N/A 03/18/2006 Yes diphenhydramine [id number] Drug Allergy Unknown N/A 03/18/2006 Yes doxycycline [id number] Drug Allergy Unknown N/A 03/18/2006 Yes egg [id number] Drug Allergy Unknown N/A 03/18/2006 Yes fish oil [id number] Drug Allergy Unknown N/A 03/18/2006 Yes flavoxate [id number] Drug Allergy Unknown N/A 03/18/2006 Yes hydrocodone [id number] Drug Allergy Unknown N/A 03/18/2006 Yes hydroxyzine [id number] Drug Allergy Unknown N/A 03/18/2006 Yes hyoscyamine [id number] Drug Allergy Unknown N/A 03/18/2006 Yes imipramine [id number] Drug Allergy Unknown N/A 03/18/2006 Yes levofloxacin [id number] Drug Allergy Unknown N/A 03/18/2006 Yes Liver Extract [id number] Drug Allergy Unknown N/A 03/18/2006 Yes lorazepam [id number] Drug Allergy Unknown N/A 03/18/2006 Yes milk [id number] Drug Allergy Unknown N/A 03/18/2006 Yes nitrofurantoin [id number] Drug Allergy Unknown N/A 03/18/2006 Yes oxybutynin [id number] Drug Allergy Unknown N/A 03/18/2006 Yes Penicillins [id number] Drug Allergy Unknown N/A 03/18/2006 Yes pentazocine [id number] Drug Allergy Unknown N/A 03/18/2006 Yes phenazopyridine [id number] Drug Allergy Unknown N/A 03/18/2006 Yes phenylpropanolamine [id number] Drug Allergy Unknown N/A 03/18/2006 Yes procaine [id number] Drug Allergy Unknown N/A 03/18/2006 Yes promethazine [id number] Drug Allergy Unknown N/A 03/18/2006 Yes propoxyphene [id number] Drug Allergy Unknown N/A 03/18/2006 Yes pseudoephedrine [id number] Drug Allergy Unknown N/A 03/18/2006 Yes Sulfa (Sulfonamide Antibiotics) [id number] Drug Allergy Unknown N/A 2005 Yes tetracycline [id number] Drug Allergy Unknown N/A 03/18/2006 Yes tramadol [id number] Drug Allergy Unknown N/A 03/18/2006 Yes zinc acetate [id number] Drug Allergy Unknown N/A 03/18/2006 Yes aspirin Drug Allergy N/A N/A 11/28/2009 Yes codeine Drug Allergy N/A N/A 11/28/2009 Yes Penicillins Drug Allergy N/A N/A 11/28/2009 Yes sulfasalazine Drug Allergy N/ A N/A 11/28/2009 Yes Tegretol Drug Allergy N/A [...] N/A N/A 06/02/2010 Yes erythromycin Drug Allergy N/ A N/A 06/02/2010 Yes imipramine Drug Allergy N/A N/A 06/02/2010 Yes Levsin Drug Allergy N/A N/A 06/02/2010 Yes Macrobid Drug Allergy N/A N/A 06/02/2010 Yes Novocain Drug Allergy N/A N/A 06/02/2010 Yes Organidin NR Drug Allergy N/ A N/A 06/02/2010 Yes Phenergan Drug Allergy N/A N/A 06/02/2010 Yes PhosLo Drug Allergy N/A N/A 06/02/2010 Yes Pyridium Drug Allergy N/A N/A 06/02/2010 Yes Talwin NX Drug Allergy N/A N/A 06/02/2010 Yes tetracycline Drug Allergy N/ A N/A 06/02/2010 Yes Tofranil Drug Allergy N/A [...] Drug Allergy 06/02/2010 Yes metoclopramide Drug Allergy N /A N/A 03/02/2011 Yes metoclopramide Drug Allergy 03/02/2011 Yes coffee (Coffea arabica) [id number] Drug Allergy Unknown N/A 09/19/2017 Yes Fish Containing Products [id number] Drug Allergy Unknown N/A 09/19/2017 Yes SPINACH [id number] Drug Allergy Unknown N/A 09/19/2017 Medications There is no data. 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 11/18/2009 493.90 Asthma Unspecified 11/18/2009 530.81 GERD 11/18/2009 266.2 OTHER B- COMPLEX DEFICIENCIES 11/18/2009 356.9 NEUROPATHY 11/18/2009 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 11/18/2009 493.90 Asthma Unspecified 11/18/2009 530.81 GERD 11/18/2009 266.2 OTHER B- COMPLEX DEFICIENCIES 11/18/2009 356.9 NEUROPATHY 11/18/2009 437.1 OTHER [...] 11/18/2009 NAHOMY BETH MD 356.9 NEUROPATHY 11/18/2009 IGNACIA CARRERO, NAHOMY 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 11/18/2009 [...] Strains Of Foot, Unspecified Site 11/28/2009 SATYA BRANTLEY, CASIE 719.47 Pain In Joint Involving Ankle And Foot 11/28/2009 SATYA BRANTLEY, CASIE 845.10 Sprains And Strains Of Foot, Unspecified Site 11/28/2009 NAHOMY BETH MD 719.47 Pain In Joint Involving Ankle And Foot 11/28/2009 NAHOMY BETH MD 845.10 Sprains And Strains Of Foot, Unspecified Site 11/28/2009 SATYA BRANTLEY, CASIE 719.47 Pain In Joint Involving Ankle And Foot 11/28/2009 SATYA BRANTLEY, CASIE 845.10 Sprains And Strains Of Foot, [...] Lateral Collateral Ligament Of Knee 12/01/2009 SATYA DPJuanpablo CASIE 781.0 ABNORMAL INVOLUNTARY MOVEMENTS 12/01/2009 SATYA DPJuanpablo, CASIE 844.0 Sprains And Strains Of Knee And Leg, Lateral Collateral Ligament Of Knee 12/01/2009 STAYA DPJuanpablo, CASIE 781.0 ABNORMAL INVOLUNTARY MOVEMENTS 12/01/2009 SATYA DPJuanpablo, CASIE 844.0 Sprains And Strains Of Knee [...] 12/14/2009 Ot 585.9 12/14/2009 Ot V58.81 01/09/2010 NAHOMY BETH MD 459.81 VENOUS (PERIPHERAL) INSUFFICIENCY, UNSPECIFIED 01/09/2010 NAHOMY BETH MD5.9 CHRONIC KIDNEY DISEASE, UNSPECIFIED 01/09/2010 NAHOMY BETH MD 459.81 VENOUS (PERIPHERAL) INSUFFICIENCY, UNSPECIFIED 01/09/2010 NAHOMY BETH MD 585.9 CHRONIC KIDNEY DISEASE, UNSPECIFIED 01/09/2010 459.81 VENOUS ( PERIPHERAL) INSUFFICIENCY, UNSPECIFIED 01/09/2010 585.9 CHRONIC KIDNEY DISEASE, UNSPECIFIED 01/09/2010 459.81 VENOUS ( PERIPHERAL) INSUFFICIENCY, UNSPECIFIED 01/09/2010 585.9 CHRONIC KIDNEY DISEASE, UNSPECIFIED 01/09/2010 459.81 VENOUS ( PERIPHERAL) INSUFFICIENCY, UNSPECIFIED 01/09/2010 585.9 CHRONIC KIDNEY DISEASE, UNSPECIFIED 01/09/2010 459.81 VENOUS ( PERIPHERAL) INSUFFICIENCY, UNSPECIFIED 01/09/2010 585.9 CHRONIC KIDNEY DISEASE, UNSPECIFIED 01/09/2010 459.81 VENOUS ( PERIPHERAL) INSUFFICIENCY, UNSPECIFIED 01/09/2010 585.9 CHRONIC KIDNEY DISEASE, UNSPECIFIED 01/09/2010 NAHOMY BETH MD 459.81 VENOUS (PERIPHERAL) INSUFFICIENCY, UNSPECIFIED 01/09/2010 NAHOMY BETH MD5.9 CHRONIC KIDNEY DISEASE, UNSPECIFIED 01/09/2010 NAHOMY EBTH MD 459.81 VENOUS (PERIPHERAL) INSUFFICIENCY, UNSPECIFIED 01/09/2010 NAHOMY BETH MD 585.9 CHRONIC KIDNEY DISEASE, UNSPECIFIED 01/09/2010 NAIN HARO DO 459.81 VENOUS (PERIPHERAL) INSUFFICIENCY, UNSPECIFIED 01/09/2010 NAIN HARO DO 585.9 CHRONIC KIDNEY DISEASE, UNSPECIFIED 01/09/2010 IGNACIA CARRERO, NAHOMY 459.81 VENOUS (PERIPHERAL) INSUFFICIENCY, UNSPECIFIED 01/09/2010 IGNACIA CARRERO, NAHOMY Hurd.9 CHRONIC KIDNEY DISEASE, UNSPECIFIED 01/09/2010 IGNACIA CARRERO, NAHOMY 459.81 VENOUS (PERIPHERAL) INSUFFICIENCY, UNSPECIFIED 01/09/2010 IGNACIA CARRERO, NAHOMY 585.9 CHRONIC KIDNEY DISEASE, UNSPECIFIED 01/09/2010 HARO DO, NAIN K 459.81 VENOUS (PERIPHERAL) INSUFFICIENCY, UNSPECIFIED 01/09/2010 HARO DO, NAIN K 585.9 CHRONIC KIDNEY DISEASE, UNSPECIFIED 01/09/2010 HARO DO, NAIN K 459.81 VENOUS (PERIPHERAL) INSUFFICIENCY, UNSPECIFIED 01/09/2010 HARO DO, NAIN K 585.9 CHRONIC KIDNEY DISEASE, UNSPECIFIED 01/09/2010 IGNACIA CARRERO, NAHOMY 459.81 VENOUS (PERIPHERAL) INSUFFICIENCY, UNSPECIFIED 01/09/2010 IGNACIA CARRERO, NAHOMY Clancy5.9 CHRONIC KIDNEY DISEASE, UNSPECIFIED 01/09/2010 SATYA DPM, CASIE 459.81 VENOUS (PERIPHERAL) INSUFFICIENCY, UNSPECIFIED 01/09/2010 SATYA DPM, CASIE 585.9 CHRONIC KIDNEY DISEASE, UNSPECIFIED 01/09/2010 SATYA DPM, CASIE 459.81 VENOUS (PERIPHERAL) INSUFFICIENCY, UNSPECIFIED 01/09/2010 SATYA DPM, CASIE 585.9 CHRONIC KIDNEY DISEASE, UNSPECIFIED 01/09/2010 IGNACIA CARRERO, NAHOMY 459.81 VENOUS (PERIPHERAL) INSUFFICIENCY, UNSPECIFIED 01/09/2010 NAHOMY BETH MD.9 CHRONIC KIDNEY DISEASE, UNSPECIFIED 01/09/2010 SATYA DPM, CASIE 459.81 VENOUS (PERIPHERAL) INSUFFICIENCY, UNSPECIFIED 01/09/2010 SATYA DPM, CASIE 585.9 CHRONIC KIDNEY DISEASE, UNSPECIFIED 01/09/2010 NAHOMY BETH MD 459.81 VENOUS (PERIPHERAL) INSUFFICIENCY, UNSPECIFIED 01/09/2010 NAHOMY BETH MD 58Sreedhar.9 CHRONIC KIDNEY DISEASE, UNSPECIFIED 02/23/2010 IGNACIA CARRERO, NAHOMY 599.0 Urinary Tract Infection 02/23/2010 NAHOMY BETH MD 599.0 Urinary Tract Infection 02/23/2010 599.0 Urinary Tract Infection 02/23/2010 599.0 Urinary Tract Infection 02/23/2010 599.0 Urinary Tract Infection 02/23/2010 599.0 Urinary Tract Infection 02/23/2010 599.0 Urinary Tract Infection 02/23/2010 NAHOMY BETH MD 599.0 Urinary Tract Infection 02/23/2010 NAHOMY BETH MD 599.0 Urinary Tract Infection 02/23/2010 HARO NAIN DOWELL K 599.0 Urinary Tract Infection 02/23/2010 NAHOMY BETH MD 599.0 Urinary Tract Infection 02/23/2010 NAHOMY BETH MD 599.0 Urinary Tract Infection 02/23/2010 HARO DO, NAIN K 599.0 Urinary Tract Infection 02/23/2010 HARO NAIN DOWELL K 599.0 Urinary Tract Infection 02/23/2010 NAHOMY [...] NAHOMY BETH MD 462 Pharyngitis Acute 04/10/2010 KRYSTAL HARO DOA K 462 Pharyngitis Acute 04/10/2010 NAHOMY BETH MD 462 Pharyngitis Acute 04/10/2010 NAHOMY BETH MD 46Stella Pharyngitis Acute 04/10/2010 HARO DO, NAIN K 462 Pharyngitis Acute 04/10/2010 HARO DO, NAIN K 462 Pharyngitis Acute 04/10/2010 IGNACIA CARRERO, NAHOMY 462 Pharyngitis Acute 04/10/2010 SATYA DPM, CASIE 462 Pharyngitis Acute 04/10/2010 SATYA DPM, CASIE 462 Pharyngitis Acute 04/10/2010 NAHOMY BETH MD 462 Pharyngitis Acute 04/10/2010 SATYA DPM, CASIE 462 Pharyngitis Acute 04/10/2010 IGNACIA CARRERO, NAHOMY 46Stella Pharyngitis Acute 04/24/2010 NAHOMY BETH MD 789.00 [...] Abdominal Pain Unspecified Site 04/24/2010 NAHOMY BETH MD9.00 Abdominal Pain Unspecified Site 04/24/2010 SATYA DPM, [...] 112.1 Candidiasis Of Vulva And Vagina 06/05/2010 ESTRELLITA DOWELL NAIN K 112.1 Candidiasis Of Vulva And Vagina 06/05/2010 NAHOMY BETH MD 112.1 Candidiasis Of Vulva And Vagina 06/05/2010 NAHOMY BETH MD 112.1 Candidiasis Of Vulva And Vagina 06/05/2010 HARO DO NIAN K 112.1 Candidiasis Of Vulva And Vagina 06/05/2010 HARO DO NAIN K 112.1 Candidiasis Of Vulva And Vagina 06/05/2010 NAHOMY BETH MD 112.1 Candidiasis Of Vulva And Vagina 06/05/2010 SATYA DPM, CASIE 112.1 Candidiasis Of Vulva And Vagina 06/05/2010 SATYA BRANTLEY, CASIE 112.1 Candidiasis Of Vulva And Vagina [...] Upper Respiratory Infections Of Unspecified Site 08/18/2010 SATYA DPM CASIE 465.9 Acute Upper Respiratory Infections Of Unspecified Site 08/18/2010 SATYA DPUMM GeronimoIN 465.9 Acute Upper Respiratory Infections Of Unspecified [...] 04/03/2011 Ot 782.3 04/03/2011 Ot V58.61 05/10/2011 NAHOMY BETH MD 789.00 Abdominal Pain Unspecified Site 05/10/2011 NAHOMY BETH MD 789.00 Abdominal Pain Unspecified Site 05/10/2011 789.00 Abdominal Pain Unspecified Site 05/10/2011 789.00 Abdominal Pain Unspecified Site 05/10/2011 789.00 Abdominal Pain Unspecified Site 05/10/2011 789.00 Abdominal Pain Unspecified Site 05/10/2011 789.00 Abdominal Pain Unspecified Site 05/10/2011 NAHOMY BETH MD 789.00 Abdominal Pain Unspecified Site 05/10/2011 NAHOMY BETH MD 789.00 Abdominal Pain Unspecified Site 05/10/2011 NAIN HARO DO K 789.00 Abdominal Pain Unspecified Site 05/10/2011 NAHOMY BETH MD 789.00 Abdominal Pain Unspecified Site 05/10/2011 NAHOMY BETH MD 789.00 Abdominal Pain Unspecified Site 05/10/2011 HRAO KRYSTAL DOWELLA K 789.00 Abdominal Pain Unspecified Site 05/10/2011 NAIN HARO DO K 789.00 Abdominal Pain Unspecified Site 05/10/2011 NAHOMY BETH MD 789.00 Abdominal Pain Unspecified Site 05/10/2011 SATYA DPM, CASIE 789.00 Abdominal Pain Unspecified Site 05/10/2011 SATYA DPM, CASIE 789.00 Abdominal Pain Unspecified Site 05/10/2011 NAHOMY BETH MD 789.00 Abdominal Pain Unspecified Site 05/10/2011 SATYA DPJuanpablo, CASIE 789.00 Abdominal Pain Unspecified Site 05/10/2011 [...] MD 924.9 Contusion Of Unspecified Site 06/21/2011 KRYSTAL HARO DOA K 686.9 Unspecified Local Infection Of Skin [...] 924.9 Contusion Of Unspecified Site 06/21/2011 HARO DO, NAIN K 686.9 Unspecified Local Infection Of Skin And Subcutaneous Tissue 06/21/2011 HARO DO, NAIN K 924.9 Contusion Of Unspecified Site 06/21/2011 HARO DO, NAIN K 686.9 Unspecified Local Infection Of [...] Infection Of Skin And Subcutaneous Tissue 06/21/2011 HUERTER MD, NAHOMY 924.9 Contusion Of Unspecified Site 06/21/2011 CASIE ARRIAGA DPM 686.9 Unspecified Local Infection Of Skin And Subcutaneous Tissue 06/21/2011 CASIE ARRIAGA DPM 924.9 Contusion Of Unspecified Site 06/21/2011 NAHOMY [...] 707.10 Unspecified Ulcer Of Lower Limb 07/03/2011 NAIN HARO DO 465.9 Acute Upper Respiratory Infections Of Unspecified Site 07/03/2011 NAIN HARO DO 707.10 Unspecified Ulcer Of Lower Limb 07/03/2011 NAHOMY BETH MD 465.9 Acute Upper Respiratory Infections Of Unspecified Site 07/03/2011 NAHOMY BETH MD 707.10 Unspecified Ulcer Of Lower Limb 07/03/2011 NAHOMY BETH MD 465.9 Acute Upper Respiratory Infections Of Unspecified Site 07/03/2011 NAHOMY BETH MD 707.10 Unspecified Ulcer Of Lower Limb 07/03/2011 HARO DO, NAIN K 465.9 Acute Upper Respiratory Infections Of Unspecified Site 07/03/2011 HARO DO, NAIN K 707.10 Unspecified Ulcer Of Lower Limb 07/03/2011 HARO DO, NAIN K 465.9 Acute Upper Respiratory Infections Of Unspecified Site 07/03/2011 HARO DO, NAIN K 707.10 Unspecified Ulcer Of Lower Limb [...] Unspecified Ulcer Of Lower Limb 07/03/2011 NAHOMY BEHT MD 465.9 Acute Upper Respiratory Infections Of [...] HARO DO K 780.39 OTHER CONVULSIONS 09/17/2011 NAHOMY BETH MD 780.39 OTHER CONVULSIONS 09/17/2011 NAHOMY BETH MD 780.39 OTHER CONVULSIONS 09/17/2011 NAIN HARO DO K 780.39 OTHER CONVULSIONS 09/17/2011 KRYSTAL HARO DOA K 780.39 OTHER CONVULSIONS 09/17/2011 NAHOMY BETH [...] CONVULSIONS 10/14/2011 Ot 414.01 CORONARY ATHEROSCLEROSIS OF [place] CORON 10/14/2011 Ot 891.0 OPEN WND KNEE /LEG/ANKLE 10/14/2011 Ot E000.8 OTHER EXTERNAL CAUSE STATUS [...] 112.1 Candidiasis Of Vulva And Vagina 01/03/2012 SATYA BRANTLEY, CASIE 112.1 Candidiasis Of Vulva And Vagina 01/03/2012 NAHOMY BETH MD 112.1 Candidiasis Of Vulva And Vagina 01/03/2012 SATYA BRANTLEY, CASIE 112.1 Candidiasis Of Vulva And Vagina 01/03/2012 NAHOMY BETH MD 112.1 Candidiasis Of Vulva And Vagina 01/15/2012 NAHOMY BETH MD 616.10 Vaginitis Vulvovaginitis [...] BETH MD 616.10 Vaginitis Vulvovaginitis Unspecified 01/15/2012 SATYA BRANTLEY, CASIE 616.10 Vaginitis Vulvovaginitis Unspecified 01/15/2012 NAHOMY BETH [...] Pain Unspecified Site 03/17/2012 NAIN HARO DO 789.00 Abdominal Pain Unspecified Site 03/17/2012 NAHOMY BETH MD 789.00 Abdominal Pain Unspecified Site 03/17/2012 NAHOMY BETH MD 789.00 Abdominal Pain Unspecified Site 03/17/2012 NAIN HARO DO K 789.00 Abdominal Pain Unspecified Site 03/17/2012 NAIN HARO DO K 789.00 Abdominal Pain Unspecified Site 03/17/2012 NAHOMY BETH MD 789.00 Abdominal Pain Unspecified Site 03/17/2012 SATYA BRANTLEY, CASIE 789.00 Abdominal Pain Unspecified Site 03/17/2012 SATYA BRANTLEY, CASIE 789.00 Abdominal Pain Unspecified Site 03/17/2012 NAHOMY BETH MD 789.00 Abdominal Pain Unspecified Site 03/17/2012 SATYA BRANTLEY, CASIE 789.00 Abdominal Pain Unspecified Site 03/17/2012 NAHOMY BETH MD 789.00 Abdominal Pain Unspecified Site 04/15/2012 NAHOMY BETH [...] OTHER LATE EFFECTS OF CEREBROVASCULAR DISEASE 05/20/2012 NAHOMY BETH MD 553.1 UMBILICAL HERNIA 05/20/2012 NAHOMY BETH MD 553.1 UMBILICAL HERNIA 05/20/2012 553.1 UMBILICAL HERNIA 05/20/2012 553.1 UMBILICAL HERNIA 05/20/2012 553.1 UMBILICAL HERNIA 05/20/2012 553.1 UMBILICAL HERNIA 05/20/2012 553.1 UMBILICAL HERNIA 05/20/2012 NAHOMY BETH MD 553.1 UMBILICAL HERNIA 05/20/2012 NAHOMY BETH MD 553.1 UMBILICAL HERNIA 05/20/2012 HARO NAIN DOWELL 553.1 UMBILICAL HERNIA 05/20/2012 NAHOMY BETH MD 553.1 UMBILICAL HERNIA 05/20/2012 NAHOMY BETH MD 553.1 UMBILICAL HERNIA 05/20/2012 ESTRELLITA DOWELLNAIN 553.1 UMBILICAL HERNIA 05/20/2012 HARO NAIN DOWELL K 553.1 UMBILICAL HERNIA 05/20/2012 NAHOMY BETH MD 553.1 UMBILICAL HERNIA 05/20/2012 SATYA DPM, CASIE 553.1 UMBILICAL HERNIA 05/20/2012 SATYA DPJuanpablo, CASIE 553.1 UMBILICAL HERNIA 05/20/2012 NAHOMY BETH MD 553.1 UMBILICAL HERNIA 05/20/2012 SATYA DPJuanpablo, CASIE 553.1 UMBILICAL HERNIA 05/20/2012 NAHOMY BETH [...] OSTEOPOROSIS UNSPECIFIED 07/31/2012 733.00 OSTEOPOROSIS UNSPECIFIED 07/31/2012 IGNACIA CARRERO, NAHOMY 733.00 OSTEOPOROSIS UNSPECIFIED 07/31/2012 IGNACIA CARRERO, NAHOMY 733.00 OSTEOPOROSIS UNSPECIFIED 07/31/2012 IGNACIA CARRERO, NAHOMY 733.00 OSTEOPOROSIS UNSPECIFIED 07/31/2012 IGNACIA CARRERO, NAHOMY 733.00 OSTEOPOROSIS UNSPECIFIED 07/31/2012 HARO DO, NAIN K 733.00 OSTEOPOROSIS UNSPECIFIED 07/31/2012 HARO DO, NAIN K 733.00 OSTEOPOROSIS UNSPECIFIED 07/31/2012 IGNACIA CARRERO, NAHOMY [...] DEEPTI A Ot 920 CONTUSION FACE/SCALP/NCK 01/31/2013 DEEPTI MARTINEZ MD A Ot 924.11 CONTUSION OF KNEE 01/31/2013 ATIYA MARTINEZ MDNT A Ot 959.01 HEAD INJURY, NOS 01/31/2013 ATIYA MARTINEZ MDNT A Ot E000.8 OTHER EXTERNAL CAUSE STATUS 01/31/2013 DEEPTI MARTINEZ MD A Ot E849.0 ACCIDENT IN HOME 01/31/2013 DEEPTI MARTINEZ MD A Ot E884.3 FALL FROM WHEELCHAIR 02/03/2013 DEEPTI MARTINEZ MD A Ot 790.92 COAGULATION PROFILE, ABNORMAL 02/03/2013 DEEPTI MARTINEZ MD A Ot 920 CONTUSION FACE/SCALP/NCK 02/03/2013 ATIYA MARTINEZ MDNT A Ot 959.09 INJURY OF FACE AND NECK 02/03/2013 ATIYA MARTINEZ MDNT A Ot E000.8 OTHER [...] UNSPECIFIED INJURY TO HEAD 02/05/2013 SATYA DPJuanpablo, CASIE 959.01 OTHER AND UNSPECIFIED INJURY TO HEAD 02/05/2013 SATYA BRANTLEY, CASIE 959.01 OTHER AND UNSPECIFIED INJURY TO HEAD 02/05/2013 NAHOMY BETH MD 959.01 OTHER AND UNSPECIFIED INJURY TO HEAD 02/05/2013 SATYA BRANTLEY, CASIE 959.01 OTHER AND UNSPECIFIED INJURY TO HEAD [...] MD Ot V58.69 OTH MED,LT,CURRENT USE 03/06/2013 NICK ONEILL MD Ot 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 03/06/2013 NICK ONEILL [...] DPM 735.4 OTHER HAMMER TOE (ACQUIRED) 08/27/2013 CASIE ARRIAGA DPM 735.4 OTHER HAMMER TOE (ACQUIRED) 08/27/2013 NAHOMY BETH MD 735.4 OTHER HAMMER TOE (ACQUIRED) 08/27/2013 CASIE ARRIAGA DPM 735.4 OTHER HAMMER TOE (ACQUIRED) 08/27/2013 NAHOMY BETH MD 735.4 OTHER HAMMER TOE (ACQUIRED) 10/21/2013 MAYELIN ETIENNE MD Ot 459.81 VENOUS INSUFFICIENCY NOS 10/29/2013 NAHOMY BEHT MD 716.90 UNSPECIFIED ARTHROPATHY SITE UNSPECIFIED 10/29/2013 NAIN HARO DO 716.90 UNSPECIFIED ARTHROPATHY SITE UNSPECIFIED 10/29/2013 NAIN HARO DO 716.90 UNSPECIFIED ARTHROPATHY SITE UNSPECIFIED 10/29/2013 NAHOMY BETH MD 716.90 UNSPECIFIED ARTHROPATHY SITE UNSPECIFIED 10/29/2013 CASIE ARRIAGA DPM 716.90 UNSPECIFIED ARTHROPATHY SITE UNSPECIFIED 10/29/2013 CASIE ARRIAGA DPM 716.90 UNSPECIFIED ARTHROPATHY SITE UNSPECIFIED 10/29/2013 NAHOMY BETH MD 716.90 UNSPECIFIED ARTHROPATHY SITE UNSPECIFIED 10/29/2013 CASIE ARRIAGA DPM 716.90 UNSPECIFIED ARTHROPATHY SITE UNSPECIFIED 10/29/2013 NAHOMY BETH MD 716.90 UNSPECIFIED ARTHROPATHY SITE UNSPECIFIED 12/16/2013 KRISTY [...] MD Ot 786.59 CHEST PAIN NEC 12/16/2013 KRISTY WALDRON MD Ot V12.51 HX-VENOUS THROMBOSIS EMBOLISM 12/16/2013 KRISTY WALDRON MD Ot V43.3 HEART VALVE REPLAC NEC 12/16/2013 KRISTY WALDRON MD Ot V58.61 ANTICOAGULANTS,LT,CURRENT USE 12/16/2013 KRISTY WALDRON MD, Ot V58.69 OTH MED,LT,CURRENT USE 01/01/2014 NAIN HARO DO 826.0 FX TOE(S) 01/01/2014 NAIN HARO DO 826.0 FX TOE(S) 01/01/2014 NAHOMY BETH MD 826.0 FX TOE(S) 01/01/2014 SATYA DPJuanpablo, CASIE 826.0 FX TOE(S) 01/01/2014 SATYA BRANTLEY, CASIE 826.0 FX TOE(S) 01/01/2014 NAHOMY BETH MD 826.0 FX TOE(S) 01/01/2014 SATYA BRANTLEY, CASIE 826.0 FX TOE(S) 01/01/2014 NAHOMY BETH MD 826.0 FX TOE(S) 01/21/2014 JAIMIE CARRERO, MAYELIN Geronimo Ot 459.81 VENOUS INSUFFICIENCY NOS 02/25/2014 NICK ONEILL MD Ot 285.9 ANEMIA NOS 02/25/2014 NICK ONEILL MD Ot 562.10 DIVERTICULOSIS COLON (W/O MENT OF HEMORR 02/25/2014 NICK ONEILL MD Ot 578.9 GASTROINTEST HEMORR NOS 02/25/2014 NICK ONEILL MD Ot 787.91 DIARRHEA 02/25/2014 NICK ONEILL MD Ot V16.0 FAMILY HX-GI MALIGNANCY 03/04/2014 NAHOMY BETH MD 724.5 BACKACHE UNSPECIFIED 03/04/2014 SATYA DPJuanpablo, CASIE 724.5 BACKACHE UNSPECIFIED 03/04/2014 SATYA DPM, CASIE 724.5 BACKACHE UNSPECIFIED 03/04/2014 IGNACIA CARRERO, NAHOMY 724.5 BACKACHE UNSPECIFIED 03/04/2014 SATYA DPM, CASIE 724.5 BACKACHE UNSPECIFIED 03/04/2014 IGNACIA CARRERO, NAHOMY 724.5 BACKACHE UNSPECIFIED 04/29/2014 IGNACIA CARRERO, NAHOMY Moody Ot 459.81 VENOUS INSUFFICIENCY NOS 05/07/2014 IGNACIA CARRERO, NAHOMY Moody Ot 459.81 05/07/2014 IGNACIA CARRERO, NAHOMY Moody Ot 459.81 05/10/2014 IGNACIA CARRERO, NAHOMY Moody Ot 459.81 05/10/2014 IGNACIA CARRERO, NAHOMY Moody Ot 459.81 05/14/2014 SATYA DPM, CASIE 110.1 ONYCHOMYCOSIS 05/14/2014 NAHOMY BETH MD 110.1 ONYCHOMYCOSIS 05/14/2014 SATYA DPM, CASIE 110.1 ONYCHOMYCOSIS 05/14/2014 NAHOMY BETH MD 110.1 ONYCHOMYCOSIS 05/28/2014 NAHOMY BETH MD Ot 459.81 06/10/2014 VICKI LEBRONC, ALI FACP CCDS Ot 433.10 06/11/2014 NAHOMY BETH MD Ot 459.81 06/14/2014 VICKI CARRERO FACC, ALI FACP CCDS Ot 785.1 06/14/2014 VICKI LEBRONC, ALI FACP CCDS Ot 786.50 06/14/2014 VICKI CARRERO FACC, ALI FACP CCDS Ot 272.4 06/14/2014 VICKI CARRERO FACC, ALI FACP CCDS Ot 342.90 06/14/2014 VICKI CARRERO FACC, ALI FACP CCDS Ot 403.90 06/14/2014 VICKI CARRERO FACC, ALI FACP CCDS Ot 585.2 06/14/2014 VICKI CARRERO FACC, ALI FACP CCDS Ot 785.1 06/14/2014 VICKI LEBRONC, ALI FACP CCDS Ot 786.50 06/14/2014 VICKI CARRERO FACC, ALI FACP CCDS Ot V58.61 06/14/2014 VICKI LEBRONC, ALI FACP CCDS Ot 780.4 06/14/2014 VICKI MD FACC, ALI FACP CCDS Ot 780.79 06/14/2014 VICKI CARRERO FACC, ALI FACP CCDS Ot 785.1 06/14/2014 VICKI LEBRONC, ALI FACP CCDS Ot V58.61 06/14/2014 VICKI CARRERO FACC, ALI FACP CCDS Ot V58.69 06/15/2014 NAHOMY BETH MD Ot 459.81 06/15/2014 NAHOMY BETH MD Ot 459.81 06/21/2014 VICKI CARRERO FACC, ALI FACP CCDS Ot 785.1 06/21/2014 VICKI LEBRONC, ALI FACP CCDS Ot 786.50 06/25/2014 NAHOMY BETH MD Ot 459.81 06/29/2014 VICKI LEBRONC, ALI FACP CCDS Ot 785.1 PALPITATIONS 06/29/2014 VICKI LEBRONC, ALI FACP CCDS Ot 786.50 CHEST PAIN NOS 06/29/2014 NAHOMY BETH MD Ot 459.81 06/30/2014 VICKI LEBRONC, ALI FACP CCDS Ot 780.4 06/30/2014 VICKI LEBRONC, ALI FACP CCDS Ot 780.79 06/30/2014 VICKI CARRERO FACC, ALI FACP CCDS Ot 785.1 06/30/2014 VICKI LEBRONC, ALI FACP CCDS Ot V58.61 06/30/2014 VICKI LEBRONC, ALI FACP CCDS Ot V58.69 07/02/2014 SATYA BRANTLEY, CASIE 735.4 HAMMER TOE (ACQUIRED) 07/02/2014 NAHOMY BETH MD 735.4 HAMMER TOE (ACQUIRED) 07/07/2014 NAHOMY BETH MD V70.0 ROUTINE GENERAL MEDICAL EXAMINATION AT A HEALTH CARE FACILITY 07/09/2014 NAHOMY BETH MD Ot 459.81 07/13/2014 VICKI CARRERO FACC, ALI FACP CCDS Ot 433.10 07/13/2014 VICKI CARRERO FACC, ALI FACP CCDS Ot 272.4 07/13/2014 VICKI CARRERO FACC, ALI FACP CCDS Ot 342.90 07/13/2014 VICKI CARRERO FACC, ALI FACP CCDS Ot 403.90 07/13/2014 VICKI CARRERO FAC, ALI FACP CCDS Ot 585.2 07/13/2014 VICKI CARRERO FAC, ALI FACP CCDS Ot 785.1 07/13/2014 VICIK CARRERO FAC, ALI FACP CCDS Ot 786.50 07/13/2014 VICKI CARRERO FAC, ALI FACP CCDS Ot V58.61 07/21/2014 SATYA DPM, CASIE [...] IGNACIA CARRERO, NAHOMY Moody Ot 459.81 10/22/2014 IGNACIA CARRERO, NAHOMY Moody Ot 459.81 11/05/2014 IGNACIA CARRERO, NAHOMY Moody Ot 459.81 11/11/2014 IGNACIA CARRERO, NAHOMY Moody Ot 459.81 VENOUS INSUFFICIENCY NOS 11/19/2014 IGNACIA CARRERO, NAHOMY F Ot 459.81 11/19/2014 IGNACIA CARRERO, NAHOMY F Ot 459.81 11/19/2014 IGNACIA CARRERO, NAHOMY Moody [...] IGNACIA CARRERO, NAHOMY F Ot 459.81 02/17/2015 IGNACIA CARRERO, NAHOMY [place] Ot 459.81 VENOUS INSUFFICIENCY NOS 03/01/2015 IGNACIA CARRERO, NAHOMY F Ot 459.81 03/11/2015 IGNACIA CARRERO, NAHOMY Moody Ot 459.81 03/18/2015 ROCIO FIELD Ot 272.4 03/23/2015 IGNACIA CARRERO, NAHOMY Moody Ot 459.81 VENOUS INSUFFICIENCY NOS 03/25/2015 IGNACIA CARRERO, NAHOMY Moody Ot 459.81 03/25/2015 IGNACIA CARRERO, NAHOMY Moody Ot 459.81 03/25/2015 IGNACIA CARRERO, NAHOMY F Ot 459.81 03/28/2015 ROCIO FIELD Ot 272.4 04/08/2015 IGNACIA CARRERO, NAHOMY Moody Ot I87.2 04/22/2015 IGNACIA CARRERO, NAHOMY Moody Ot I87.2 04/25/2015 IGNACIA CARRERO, NAHOMY Moody Ot R10.9 04/25/2015 IGNACIA CARRERO, NAHOMY Moody Ot R11.10 05/06/2015 IGNACIA CARRERO, NAHOMY Moody Ot I87.2 05/16/2015 IGNACIA CARRERO, NAHOMY Moody Ot R10.9 05/16/2015 IGNACIA CARRERO, NAHOMY Moody Ot R11.10 05/23/2015 IGNACIA CARRERO, NAHOMY Moody Ot I87.2 05/26/2015 IGNACIA CARRERO, NAHOMY Moody Ot R10.9 05/26/2015 IGNACIA CARRERO, NAHOMY Moody Ot R11.10 06/01/2015 IGNACIA CARRERO, NAHOMY Moody [...] ARUN Geronimo Ot V74.8 06/03/2015 LUCIANA MARTINEZ Ot 414.00 06/03/2015 LUCIANA MARTINEZ PERSONNEL ARBITRATOR Ot 785.1 06/03/2015 NINO CARRERO, NICK S Ot 459.81 06/03/2015 NINO CARRERO, NICK S Ot 553.20 06/03/2015 NINO CARRERO, NICK S Ot V72.63 06/03/2015 NINO CARRERO, NICK S Ot V74.8 06/03/2015 VICKI CARRERO FACC, ALI FACP CCDS Ot 433.10 06/03/2015 EMIR ROCIO L PERSONNEL ARBITRATOR Ot 433.10 06/03/2015 IGNACIA CARRERO, NAHOMY Moody Ot 585.9 06/03/2015 IGNACIA CARRERO, NAHOMY Moody Ot V58.69 06/03/2015 NINO CARRERO, NICK S Ot 996.74 06/03/2015 NINO CARRERO, NICK S Ot V58.61 06/03/2015 NINO CARRERO, NICK S Ot 459.81 06/03/2015 NINO CARRERO, NICK S Ot V72.84 06/03/2015 ZEESHAN CARRERO, KOREY Bernard Ot 593.9 06/03/2015 EMIR ROCIO L PERSONNEL ARBITRATOR Ot 272.4 06/03/2015 EMIR ROCIO L PERSONNEL ARBITRATOR Ot 403.90 06/03/2015 EMIR ROCIO L PERSONNEL ARBITRATOR Ot 434.91 06/03/2015 EMIR ROCIO L PERSONNEL ARBITRATOR Ot 453.40 06/03/2015 EMIR ROCIO L PERSONNEL ARBITRATOR Ot 585.2 06/03/2015 ROCIO FIELD PERSONNEL ARBITRATOR Ot V58.61 06/03/2015 NINO CARRERO, NICK S Ot V72.84 06/03/2015 NINO CARRERO, NICK Gonzalez Ot 285.9 06/03/2015 VICKI CARRERO FACC, ALI FACP CCDS Ot 272.4 06/03/2015 VICKI CARRERO FACC, ALI FACP CCDS Ot 342.90 06/03/2015 VICKI CARRERO FACC, ALI FACP CCDS Ot 403.90 06/03/2015 VICKI CARRERO FACC, ALI FACP CCDS Ot 585.2 06/03/2015 VICKI CARRERO FACC, ALI FACP CCDS Ot 785.1 06/03/2015 VICKI CARRERO FACC, ALI FACP CCDS Ot 786.50 06/03/2015 VICKI CARRERO FAC, ALI FACP CCDS Ot V58.61 06/03/2015 VICKI CARRERO FAC, ALI FACP CCDS Ot 433.10 06/03/2015 VICKI CARRERO FAC, ALI FACP CCDS Ot 780.4 06/03/2015 VICKI CARRERO FAC, ALI FACP CCDS Ot 780.79 06/03/2015 VICKI CARRERO FACC, ALI FACP CCDS Ot 785.1 06/03/2015 VICKI CARRERO FACC, ALI FACP CCDS Ot V58.61 06/03/2015 VICKI CARRERO FAC, ALI FACP CCDS Ot V58.69 06/03/2015 VICKI CARRERO FAC, ALI FACP CCDS Ot 785.1 06/03/2015 VICKI CARRERO FAC, ALI FACP CCDS Ot 786.50 06/03/2015 SATYA DPM, CASIE Q Ot 735.4 06/03/2015 SATYA DPM, CASIE Q Ot V72.63 06/03/2015 SATYA DPM, CASIE Q Ot V74.8 06/03/2015 ROCIO FIELD PERSONNEL ARBITRATOR Ot 272.4 06/03/2015 NAHOMY BETH MD Ot I87.2 06/03/2015 NAHOMY BETH MD Ot R10.9 06/03/2015 NAHOMY BETH MD Ot R11.10 06/03/2015 JEANETTE KENDRICK DO Ot I69.954 [facility] 06/03/2015 JEANETTE KENDRICK DO Ot S80.11XA CONTUSION OF RIGHT LOWER LEG, INITIAL EN 06/03/2015 JEANETTE KENDRICK DO Ot S93.401A SPRAIN OF UNSPECIFIED LIGAMENT OF RIGHT 06/03/2015 JEANETTE KENDRICK DO Ot W05.0XXA FALL FROM NON-MOVING WHEELCHAIR, INITIAL 06/03/2015 JEANETTE KENDRICK DO Ot Y92.[address] IN [place] NON-INSTITUT (PRIVATE 06/03/2015 JEANETTE KENDRICK DO Ot Y99.8 OTHER EXTERNAL CAUSE STATUS 06/03/2015 NAHOMY BETH MD Ot I87.2 06/16/2015 NAHOMY BETH MD Ot I87.2 06/20/2015 IGNACIA CARRERO, NAHOMY Moody Ot I87.2 06/23/2015 IGNACIA CARRERO, NAHOMY Moody Ot I87.2 VENOUS INSUFFICIENCY (CHRONIC) (PERIPHER 07/01/2015 IGNACIA CARRERO, NAHOMY Moody Ot I87.2 07/04/2015 IGNACIA CARRERO, NAHOMY Moody Ot I87.2 07/15/2015 IGNACIA CARRERO, NAHOMY Moody Ot I87.2 07/29/2015 IGNACIA CARRERO, NAHOMY Fransisco Ot I87.2 08/12/2015 IGNACIA CARRERO, NAHOMY Moody Ot I87.2 08/19/2015 IGNACIA CARRERO, NAHOMY Moody Ot I87.2 08/26/2015 IGNACIA CARRERO, NAHOMY Fransisco Ot I87.2 08/30/2015 IGNACIA CARRERO, NAHOMY Fransisco Ot I87.2 09/02/2015 JAY CARRERO, ALLISON Gonzalez Ot I69.998 OTHER SEQUELAE FOLLOWING UNSPECIFIED CER 09/02/2015 ALLISON THOMPSON MD Ot R29.898 OTH SYMPTOMS AND SIGNS INVOLVING THE MUS 09/02/2015 ALLISON THOMPSON MD Ot R79.1 ABNORMAL COAGULATION PROFILE 09/02/2015 ALLISON THOMPSON MD Ot S09.90XA UNSPECIFIED INJURY OF HEAD, INITIAL ENCO 09/02/2015 ALLISON THOMPSON MD Ot S80.02XA CONTUSION OF LEFT KNEE, INITIAL ENCOUNTE 09/02/2015 JAY CARRERO, ALLISON Gonzalez Ot W05.0XXA FALL FROM NON-MOVING WHEELCHAIR, INITIAL 09/02/2015 ALLISON THOMPSON MD Ot Y92.[address] IN [place] NON-INSTITUT (PRIVATE 09/02/2015 ALLISON THOMPSON MD Ot Y99.8 OTHER EXTERNAL CAUSE STATUS 09/02/2015 ALLISON THOMPSON MD Ot Z79.01 PENITENTIARY (CURRENT) USE OF ANTICOAGULANT 09/02/2015 ALLISON THOMPSON MD Ot Z79.899 OTHER EFFICIENCY ENGINEER (CURRENT) DRUG THERAPY 09/05/2015 ALLISON THOMPSON MD Ot I69.998 09/05/2015 ALLISON THOMPSON MD Ot R29.898 09/05/2015 ALLISON THOMPSON MD Ot R79.1 09/05/2015 ALLISON THOMPSON MD Ot S09.90XA 09/05/2015 JAY CARRERO, ALLISON Gonzalez Ot S80.02XA 09/05/2015 JAY CARRERO, ALLISON Gonzalez Ot W05.0XXA 09/05/2015 JAY CARRERO, ALLISON Gonzalez Ot Y92.009 09/05/2015 JAY CARRERO, ALLISON Gonzalez Ot Y99.8 09/05/2015 JAY CARRERO, ALLISON Gonzalez Ot Z79.01 09/05/2015 JAY CARRERO, ALLISON Gonzalez Ot Z79.899 09/09/2015 IGNACIA CARRERO, NAHOMY Moody Ot I87.2 09/23/2015 IGNACIA CARRERO, NAHOMY Moody Ot I87.2 09/29/2015 IGNACIA CARRERO, NAHOMY Moody Ot I87.2 VENOUS INSUFFICIENCY (CHRONIC) (PERIPHER 10/05/2015 NAHOMY BETH MD Ot I87.2 10/07/2015 NAHOMY BETH MD Ot I87.2 VENOUS [...] Ot I87.2 VENOUS INSUFFICIENCY (CHRONIC) (PERIPHER 11/18/2015 KOREY BYERS MD Ot N19 UNSPECIFIED KIDNEY FAILURE 11/18/2015 NAHOMY BETH MD Ot I87.2 VENOUS INSUFFICIENCY (CHRONIC) (PERIPHER 11/18/2015 KOREY BYERS MD A Ot N19 UNSPECIFIED KIDNEY FAILURE 12/02/2015 NAHOMY BETH MD Ot I87.2 VENOUS INSUFFICIENCY (CHRONIC) (PERIPHER 12/05/2015 NAHOMY BETH MD Ot I87.2 VENOUS INSUFFICIENCY (CHRONIC) (PERIPHER 12/13/2015 KOREY BYERS MD Ot N19 UNSPECIFIED KIDNEY FAILURE 12/16/2015 NAHOMY BETH MD Ot I87.2 VENOUS INSUFFICIENCY (CHRONIC) (PERIPHER 12/16/2015 ZEESHAN CARRERO, KOREY Bernard Ot N19 UNSPECIFIED KIDNEY FAILURE 12/23/2015 Ot [...] I87.2 VENOUS INSUFFICIENCY (CHRONIC) (PERIPHER 02/14/2016 NAHOMY BTEH MD Ot I87.2 VENOUS INSUFFICIENCY (CHRONIC) (PERIPHER [...] (PERIPHER 05/04/2016 NAHOMY BETH MD Ot Z79.01 PENITENTIARY (CURRENT) USE OF ANTICOAGULANT 05/15/2016 NAHOMY BETH MD Ot I87.2 VENOUS INSUFFICIENCY (CHRONIC) (PERIPHER 05/15/2016 NAHOMY BETH MD Ot Z79.01 EFFICIENCY ENGINEER (CURRENT) USE OF ANTICOAGULANT 05/16/2016 NAHOMY BETH MD Ot I87.2 VENOUS INSUFFICIENCY (CHRONIC) (PERIPHER 05/16/2016 NAHOMY BETH MD Ot Z79.01 EFFICIENCY ENGINEER (CURRENT) USE OF ANTICOAGULANT 05/28/2016 NAHOMY BETH MD Ot I87.2 VENOUS INSUFFICIENCY (CHRONIC) (PERIPHER 05/28/2016 NAHOMY BETH MD Ot Z79.01 PENITENTIARY (CURRENT) USE OF ANTICOAGULANT 07/19/2016 NAHOMY BETH MD Ot I87.2 VENOUS INSUFFICIENCY (CHRONIC) (PERIPHER 07/19/2016 NAHOMY BETH MD Ot Z79.01 PENITENTIARY (CURRENT) USE OF ANTICOAGULANT 08/22/2016 Ot 345.90 [...] ATHEROSCLEROSIS OF CABG W/O ANGINA PECTO 09/20/2016 IGNACIA CARRERO, NAHOMY Moody Ot Z12.31 ENCNTR SCREEN MAMMOGRAM FOR MALIGNANT NE 10/05/2016 INGACIA CARRERO, NAHOMY Moody Ot 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 PECTO 10/16/2016 IGNACIA CARRERO, NAHOMY Moody Ot 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 PECTO 10/22/2016 Ot 783.1 10/22/2016 Ot 345.90 EPILEPSY UNSPEC W/O MENTION INTRACTABLE 10/22/2016 Ot 434.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 11/29/2016 Ot 958.3 POSTTRAUM WND INFEC NEC 11/29/2016 Ot V72.63 PRE- PROCEDURAL LABORATORY EXAMINATION 11/29/2016 Ot V74.8 SCREEN- BACTERIAL DIS NEC 11/29/2016 Ot 958.3 POSTTRAUM WND INFEC NEC 11/29/2016 Ot V64.3 NO PROC FOR REASONS NEC 11/29/2016 Ot 414.00 CORON ATHEROSCLER NOS TYPE VESSEL, NATIV 11/29/2016 Ot 414.01 CORONARY ATHEROSCLEROSIS OF [place] CORON 11/29/2016 Ot 585.9 CHRONIC KIDNEY DISEASE, UNSPECIFIED 11/29/2016 Ot 789.09 ABDOMINAL PAIN, OTHER SPECIFIED SITE 11/29/2016 Ot 585.9 CHRONIC KIDNEY DISEASE, UNSPECIFIED 11/29/2016 Ot 787.3 FLATUL/ ERUCTAT/GAS PAIN 11/29/2016 Ot 789.00 ABDOMINAL PAIN, UNSPECIFIED SITE 11/29/2016 Ot 429.3 CARDIOMEGALY 11/29/2016 Ot V12.51 HX-VENOUS THROMBOSIS EMBOLISM 11/29/2016 ARUN HERNANDEZ MD Ot 786.05 SHORTNESS OF BREATH 11/29/2016 ARUN HERNANDEZ MD Ot 791.9 ABN URINE FINDINGS NEC 11/29/2016 ARUN HERNANDEZ MD Ot V58.69 OTH MED,LT,CURRENT USE 11/29/2016 ARUN HERNANDEZ MD Ot V58.81 FIT/ADJ VASCULAR CATHETER 11/29/2016 ARUN HERNANDEZ MD Ot V72.63 PRE-PROCEDURAL LABORATORY EXAMINATION 11/29/2016 ARUN HERNANDEZ MD Ot V72.81 [id number] CARDIOVASCULAR 11/29/2016 ARUN HERNANDEZ MD Ot V72.83 EXAM PRE-OPERATIVE NEC 11/29/2016 DAVID CARRERO, ARUN Geronimo Ot V74.8 SCREEN-BACTERIAL DIS NEC 11/29/2016 LUCIANA MARTINEZ PERSONNEL ARBITRATOR Ot 414.00 CORON ATHEROSCLER NOS TYPE VESSEL, NATIV 11/29/2016 LUCIANA MARTINEZ PERSONNEL ARBITRATOR Ot 785.1 PALPITATIONS 11/29/2016 NINO CARRERO, NICK Gonzalez Ot 459.81 VENOUS INSUFFICIENCY NOS 11/29/2016 NINO CARRERO, NICK Gonzalez Ot 553.20 VENTRAL HERNIA NOS 11/29/2016 NICK ONEILL MD Ot V72.63 PRE-PROCEDURAL LABORATORY EXAMINATION 11/29/2016 NICK ONEILL MD Ot V74.8 SCREEN-BACTERIAL DIS NEC 11/29/2016 VICKI CARRERO FACC, YORDAN FACP CCDS Ot 433.10 CAROTID ARTERY OCCLUSION W O CEREBRAL IN 11/29/2016 ROCIO FIELD PERSONNEL ARBITRATOR Ot 433.10 CAROTID ARTERY OCCLUSION W O CEREBRAL IN 11/29/2016 NAHOMY BETH MD Ot 585.9 CHRONIC KIDNEY DISEASE, UNSPECIFIED 11/29/2016 NAHOMY BETH MD Ot V58.69 OTH MED,LT,CURRENT USE 11/29/2016 NICK ONEILL MD Ot 996.74 OTH COMPL DUE TO OTH VASCULAR DEVICE,IMP 11/29/2016 NICK ONEILL MD Ot V58.61 ANTICOAGULANTS,LT,CURRENT USE 11/29/2016 NICK ONEILL MD Ot 459.81 VENOUS INSUFFICIENCY NOS 11/29/2016 NICK ONEILL MD Ot V72.84 EXAM PRE-OPERATIVE NOS 11/29/2016 ZEESHAN CARRERO, KOREY Bernard Ot 593.9 RENAL URETERAL DIS NOS 11/29/2016 ROCIO FIELD L PERSONNEL ARBITRATOR Ot 272.4 HYPERLIPIDEMIA NEC/NOS 11/29/2016 ROCIO FIELD L PERSONNEL ARBITRATOR Ot 403.90 HYPTNSV CHR KID DIS, UNSPEC, W CHR KD ST 11/29/2016 EMIR ROCIO L PERSONNEL ARBITRATOR Ot 434.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 11/29/2016 EMIR ROCIO L PERSONNEL ARBITRATOR Ot 453.40 ACUTE VENOUS EMBOLISM THROMBOSIS UNSP 11/29/2016 ROCIO FIELD L PERSONNEL ARBITRATOR Ot 585.2 CHRONIC KIDNEY DISEASE, STAGE II (MILD) 11/29/2016 ROCIO FIELD PERSONNEL ARBITRATOR Ot V58.61 ANTICOAGULANTS,LT,CURRENT USE 11/29/2016 NICK ONEILL MD Ot V72.84 EXAM PRE-OPERATIVE NOS 11/29/2016 NICK ONEILL MD Ot 285.9 ANEMIA NOS 11/29/2016 VICKI CARRERO FACC, ALI FACP CCDS Ot 272.4 HYPERLIPIDEMIA NEC/NOS 11/29/2016 VICKI CARRERO FACC, ALI FACP CCDS Ot 342.90 UNSPEC HEMIPLEGIA HEMIPARESIS UNSPEC S 11/29/2016 VICKI CARRERO FACC, ALI FACP CCDS Ot 403.90 HYPTNSV CHR KID DIS, UNSPEC, W CHR KD ST 11/29/2016 VICKI CARRERO FACC, ALI FACP CCDS Ot 585.2 CHRONIC KIDNEY DISEASE, STAGE II (MILD) 11/29/2016 VICKI CARRERO FACC, ALI FACP CCDS Ot 785.1 PALPITATIONS 11/29/2016 VICKI CARRERO FACC, ALI FACP CCDS Ot 786.50 CHEST PAIN NOS 11/29/2016 VICKI CARRERO FACC, ALI FACP CCDS Ot V58.61 ANTICOAGULANTS,LT,CURRENT USE 11/29/2016 VICKI CARRERO FACC, ALI FACP CCDS Ot 433.10 CAROTID ARTERY OCCLUSION W O CEREBRAL IN 11/29/2016 VICKI CRARERO FACC, ALI FACP CCDS Ot 780.4 DIZZINESS [...] Q Ot V74.8 SCREEN-BACTERIAL DIS NEC 11/29/2016 CRISTIANROCIO OTERO PERSONNEL ARBITRATOR Ot 272.4 HYPERLIPIDEMIA NEC/NOS 11/29/2016 NAHOMY BETH MD Ot R10.9 UNSPECIFIED ABDOMINAL PAIN 11/29/2016 NAHOMY BETH MD Ot R11.10 VOMITING, UNSPECIFIED 11/29/2016 KOREY BYERS MD Ot N19 UNSPECIFIED KIDNEY FAILURE 11/29/2016 NAHOMY BETH MD Ot I87.2 VENOUS INSUFFICIENCY (CHRONIC) (PERIPHER 11/29/2016 NAHOMY BETH MD Ot Z79.01 EFFICIENCY ENGINEER (CURRENT) USE OF ANTICOAGULANT 11/29/2016 NAHOMY BETH MD Ot Z12.31 ENCNTR SCREEN MAMMOGRAM FOR MALIGNANT NE 11/29/2016 NAHOMY BETH MD Ot 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 PECTO 12/22/2016 Ot 783.1 12/27/2016 KOREY BYERS MD Ot N28.9 DISORDER OF KIDNEY AND URETER, UNSPECIFI 01/01/2017 KOREY BYERS MD Ot N28.9 DISORDER OF KIDNEY AND URETER, UNSPECIFI 02/08/2017 ALLISON BELLA MD Ot D64.9 ANEMIA, UNSPECIFIED 02/08/2017 ALLISON BELLA MD Ot K43.9 VENTRAL HERNIA WITHOUT OBSTRUCTION OR GA 02/08/2017 ALLISON BELLA MD Ot K62.5 HEMORRHAGE OF ANUS AND RECTUM 02/08/2017 ALLISON BELLA MD Ot Z01.818 ENCOUNTER FOR OTHER PREPROCEDURAL EXAMIN 02/13/2017 NAHOMY BETH MD Ot M81.0 AGE-RELATED OSTEOPOROSIS W/O CURRENT PAT 02/13/2017 ALLISON BELLA MD Ot D64.9 ANEMIA, UNSPECIFIED 02/13/2017 ALLISON BELLA MD Ot K43.9 VENTRAL HERNIA WITHOUT OBSTRUCTION OR GA 02/13/2017 ALLISON BELLA MD Ot K62.5 HEMORRHAGE OF ANUS AND RECTUM 02/13/2017 ALLISON BELLA MD Ot Z01.818 ENCOUNTER FOR OTHER PREPROCEDURAL EXAMIN 02/15/2017 KOREY BYERS MD Ot N28.9 DISORDER OF KIDNEY AND URETER, UNSPECIFI 02/15/2017 JENA CARRERO, ALLISON Stevenson Ot D64.9 ANEMIA, UNSPECIFIED 02/15/2017 JENA CARRERO, ALLISON Stevenson Ot G40.909 EPILEPSY, UNSP, NOT INTRACTABLE, WITHOUT 02/15/2017 JENA CARRERO, ALLISON Stevenson Ot I12.9 HYPERTENSIVE CHRONIC KIDNEY DISEASE W ST 02/15/2017 ALLISON BELLA MD Ot K43.9 VENTRAL HERNIA WITHOUT OBSTRUCTION OR GA 02/15/2017 ALLISON BELLA MD, Ot K62.5 HEMORRHAGE OF ANUS AND RECTUM 02/15/2017 ALLISON BELLA MD, Ot N18.9 CHRONIC KIDNEY DISEASE, UNSPECIFIED 02/15/2017 ALLISON BELLA MD, Ot R25.1 TREMOR, UNSPECIFIED 02/15/2017 ALLISON BELLA MD, Ot Z79.01 PENITENTIARY (CURRENT) USE OF ANTICOAGULANT 02/15/2017 ALLISON BELLA MD, Ot Z80.0 FAMILY HISTORY OF MALIGNANT NEOPLASM OF 02/15/2017 ALLISON BELLA MD Ot Z86.718 PERSONAL HISTORY OF OTHER VENOUS THROMBO 02/15/2017 ALLISON BELLA MD Ot Z86.73 PRSNL HX OF TIA (TIA), AND CEREB INFRC W 02/22/2017 Ot 783.1 04/12/2017 NAHOMY BETH MD Ot E56.9 VITAMIN DEFICIENCY, UNSPECIFIED 04/12/2017 NAHOMY BETH MD Ot G40.911 EPILEPSY, UNSPECIFIED, INTRACTABLE, WITH 04/12/2017 NAHOMY BETH MD Ot 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 PECTO 04/12/2017 NAHOMY BETH MD Ot I50.9 HEART FAILURE, UNSPECIFIED 04/12/2017 NAHOMY BETH MD Ot E56.9 VITAMIN DEFICIENCY, UNSPECIFIED 04/12/2017 NAHOMY BETH MD Ot G40.911 EPILEPSY, UNSPECIFIED, INTRACTABLE, WITH 04/12/2017 NAHOMY BETH MD Ot 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 PECTO 04/12/2017 NAHOMY BETH MD Ot I50.9 HEART FAILURE, UNSPECIFIED 04/17/2017 NAHOMY BETH MD Ot M81.0 AGE-RELATED OSTEOPOROSIS W/O CURRENT PAT 04/18/2017 HUERTER MD, NAHOMY F Ot M81.0 AGE-RELATED OSTEOPOROSIS W/O CURRENT PAT 04/19/2017 IGNACIA CARRERO, NAHOMY Moody Ot M81.0 AGE-RELATED OSTEOPOROSIS W/O CURRENT PAT 04/24/2017 IGNACIA CARRERO, NAHOMY Moody Ot M81.0 AGE-RELATED OSTEOPOROSIS W/O CURRENT PAT 05/01/2017 NAHOMY BETH MD Ot E56.9 VITAMIN DEFICIENCY, UNSPECIFIED 05/01/2017 NAHOMY BETH MD Ot G40.911 EPILEPSY, UNSPECIFIED, INTRACTABLE, WITH 05/01/2017 IGNACIA CARRERO, NAHOMY Moody Ot 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 PECTO 05/01/2017 IGNACIA CARRERO, NAHOMY Moody Ot I50.9 HEART FAILURE, UNSPECIFIED 05/08/2017 NAHOMY BETH MD, Ot E56.9 VITAMIN DEFICIENCY, UNSPECIFIED 05/08/2017 IGNACIA CARRERO, NAHOMY Moody Ot G40.911 EPILEPSY, UNSPECIFIED, INTRACTABLE, WITH 05/08/2017 NAHOMY BETH MD, Ot 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 PECTO 05/08/2017 NAHOMY BETH MD Ot I50.9 HEART FAILURE, UNSPECIFIED 05/10/2017 NAHOMY BETH MD Ot M81.0 AGE-RELATED OSTEOPOROSIS W/O CURRENT PAT 05/10/2017 NAHOMY BETH MD Ot M81.0 AGE-RELATED OSTEOPOROSIS W/O CURRENT PAT 05/20/2017 NAHOMY BETH MD, Ot M81.0 AGE-RELATED OSTEOPOROSIS W/O CURRENT PAT 06/11/2017 NAHOMY BETH MD Ot I25.10 ATHSCL HEART DISEASE OF [place] CORONARY 06/12/2017 NAHOMY BETH MD Ot I25.10 ATHSCL HEART DISEASE OF [place] CORONARY 06/12/2017 NAHOMY BETH MD Ot I25.10 ATHSCL HEART DISEASE OF [place] CORONARY 06/13/2017 ROCIO FIELD PERSONNEL ARBITRATOR Ot E78.4 OTHER HYPERLIPIDEMIA 06/13/2017 ROCIO FIELD PERSONNEL ARBITRATOR Ot I10 ESSENTIAL (PRIMARY) HYPERTENSION 06/13/2017 ROCIO FIELD PERSONNEL ARBITRATOR Ot I65.23 OCCLUSION AND STENOSIS OF [place] 06/13/2017 ROCIO FIELD PERSONNEL ARBITRATOR Ot R07.89 OTHER CHEST PAIN 07/02/2017 VICKI CARRERO FACC, YORDAN LEBRONP CCDS Ot E78.5 HYPERLIPIDEMIA, UNSPECIFIED 07/02/2017 VICKI CARRERO FACC, YORDAN FACP CCDS Ot G62.9 POLYNEUROPATHY, UNSPECIFIED 07/02/2017 VICKI CARRERO FACC, ALI FACP CCDS Ot I12.9 HYPERTENSIVE CHRONIC KIDNEY DISEASE W ST 07/02/2017 VICKI CARRERO FACC, ALI FACP CCDS Ot I35.1 NONRHEUMATIC AORTIC (VALVE) INSUFFICIENC 07/02/2017 VICKI CARRERO FACC, ALI FACP CCDS Ot I65.23 OCCLUSION AND STENOSIS OF [place] 07/02/2017 VICKI CARRERO FACC, ALI FACP CCDS Ot I69.354 HEMIPLGA FOLLOWING CEREBRAL INFRC AFFECT 07/02/2017 VICKI CARRERO FACC, YORDAN FACP CCDS Ot M19.91 PRIMARY OSTEOARTHRITIS, UNSPECIFIED SITE 07/02/2017 VICKI CARRERO FACC, ALI FACP CCDS Ot N18.3 CHRONIC KIDNEY DISEASE, STAGE 3 (MODERAT 07/02/2017 VICKI CARRERO FACC, ALI FACP CCDS Ot Z79.01 EFFICIENCY ENGINEER (CURRENT) USE OF ANTICOAGULANT 07/02/2017 VICKI CARRERO FACC, ALI FACP CCDS Ot Z79.899 OTHER EFFICIENCY ENGINEER (CURRENT) DRUG THERAPY 07/02/2017 VICKI CARRERO FACC, YORDAN FACP CCDS Ot Z86.718 PERSONAL HISTORY OF OTHER VENOUS THROMBO 07/03/2017 ROCIO FIELD PERSONNEL ARBITRATOR Ot E78.4 OTHER HYPERLIPIDEMIA 07/03/2017 ROCIO FIELD PERSONNEL ARBITRATOR Ot I10 ESSENTIAL (PRIMARY) HYPERTENSION 07/03/2017 ROCOI FIELD PERSONNEL ARBITRATOR Ot I65.23 OCCLUSION AND STENOSIS OF [place] 07/03/2017 ROCIO FIELD PERSONNEL ARBITRATOR Ot R07.89 OTHER CHEST PAIN 07/03/2017 IGNACIA CARRERO, NAHOMY Moody Ot I25.10 ATHSCL HEART DISEASE OF [place] CORONARY 07/04/2017 VICKI CARRERO FACC, YORDAN FACP CCDS Ot E78.5 HYPERLIPIDEMIA, UNSPECIFIED 07/04/2017 VICKI CARRERO FACC, YORDAN FACP CCDS Ot G62.9 POLYNEUROPATHY, UNSPECIFIED 07/04/2017 VICKI CARRERO FACC, ALI FACP CCDS Ot I12.9 HYPERTENSIVE CHRONIC KIDNEY DISEASE W ST 07/04/2017 VICKI CARRERO FACC, YORDAN FACP CCDS Ot I35.1 NONRHEUMATIC AORTIC (VALVE) INSUFFICIENC 07/04/2017 VICKI CARRERO FACC, YORDAN FACP CCDS Ot I65.23 OCCLUSION AND STENOSIS OF [place] 07/04/2017 VICKI CRARERO FACC, ALI FACP CCDS Ot I69.354 HEMIPLGA FOLLOWING CEREBRAL INFRC AFFECT 07/04/2017 VICKI CARRERO FACC, YORDAN FACP CCDS Ot M19.91 PRIMARY OSTEOARTHRITIS, UNSPECIFIED SITE 07/04/2017 VICKI CARRERO FACC, ALI FACP CCDS Ot N18.3 CHRONIC KIDNEY DISEASE, STAGE 3 (MODERAT 07/04/2017 YORDAN COHEN MD, FACC FACP CCDS Ot Z79.01 EFFICIENCY ENGINEER (CURRENT) USE OF ANTICOAGULANT 07/04/2017 VICKI CARRERO FACC, YORDAN FACP CCDS Ot Z79.899 OTHER PENITENTIARY (CURRENT) DRUG THERAPY 07/04/2017 VICKI CARRERO FACC, YORDAN FACP CCDS Ot Z86.718 PERSONAL HISTORY OF OTHER VENOUS THROMBO 07/05/2017 ROCIO FIELD PERSONNEL ARBITRATOR Ot E78.4 OTHER HYPERLIPIDEMIA 07/05/2017 ROCIO FIELD L PERSONNEL ARBITRATOR Ot I10 ESSENTIAL (PRIMARY) HYPERTENSION 07/05/2017 ROCIO FIELD PERSONNEL ARBITRATOR Ot I65.23 OCCLUSION AND STENOSIS OF BILATERAL [place]OM[place] 07/05/2017 ROCIO FIELD PERSONNEL ARBITRATOR Ot R07.89 OTHER CHEST PAIN 07/05/2017 VICKI CARRERO FACC, YORDAN FACP CCDS Ot E78.5 HYPERLIPIDEMIA, UNSPECIFIED 07/05/2017 VICKI CARRERO FACC, YORDAN FACP CCDS Ot G62.9 POLYNEUROPATHY, UNSPECIFIED 07/05/2017 VICKI CARRERO FACC, ALI FACP CCDS Ot I12.9 HYPERTENSIVE CHRONIC KIDNEY DISEASE W ST 07/05/2017 VICKI CARRERO FACC, YORDAN FACP CCDS Ot I35.1 NONRHEUMATIC AORTIC (VALVE) INSUFFICIENC 07/05/2017 VICKI CARRERO FACC, ALI FACP CCDS Ot I65.23 OCCLUSION AND STENOSIS OF BILATERAL [place] 07/05/2017 VICKI CARRERO FACC, YORDAN FACP CCDS Ot I69.354 HEMIPLGA FOLLOWING CEREBRAL INFRC AFFECT 07/05/2017 VICKI CARRERO FACC, YORDAN FACP CCDS Ot M19.91 PRIMARY OSTEOARTHRITIS, UNSPECIFIED SITE 07/05/2017 VICKI CARRERO FACC, ALI FACP CCDS Ot N18.3 CHRONIC KIDNEY DISEASE, STAGE 3 (MODERAT 07/05/2017 VICKI CARRERO FACC, ALI FACP CCDS Ot Z79.01 PENITENTIARY (CURRENT) USE OF ANTICOAGULANT 07/05/2017 VICKI CARRERO FACC, ALI FACP CCDS Ot Z79.899 OTHER PENITENTIARY (CURRENT) DRUG THERAPY 07/05/2017 VICKI CARRERO FACC, ALI FACP CCDS Ot Z86.718 PERSONAL HISTORY OF OTHER VENOUS THROMBO 07/08/2017 VICKI CARRERO FACC, YORDAN FACP CCDS Ot E78.5 HYPERLIPIDEMIA, UNSPECIFIED 07/08/2017 VICKI CARRERO FACC, YORDAN FACP CCDS Ot G62.9 POLYNEUROPATHY, UNSPECIFIED 07/08/2017 VICKI CARRERO FACC, ALI FACP CCDS Ot I12.9 HYPERTENSIVE CHRONIC KIDNEY DISEASE W ST 07/08/2017 VICKI CARRERO FACC, YORDAN FACP CCDS Ot I35.1 NONRHEUMATIC AORTIC (VALVE) INSUFFICIENC 07/08/2017 VICKI CARRERO FACC, ALI FACP CCDS Ot I65.23 OCCLUSION AND STENOSIS OF BILATERAL [place] 07/08/2017 VICKI CARRERO FACC, ALI FACP CCDS Ot I69.354 HEMIPLGA FOLLOWING CEREBRAL INFRC AFFECT 07/08/2017 VICKI CARRERO FACC, ALI FACP CCDS Ot M19.91 PRIMARY OSTEOARTHRITIS, UNSPECIFIED SITE 07/08/2017 VICKI CARRERO FACC, ALI FACP CCDS Ot N18.3 CHRONIC KIDNEY DISEASE, STAGE 3 (MODERAT 07/08/2017 VICKI CARRERO FACC, YORDAN FACP CCDS Ot Z79.01 EFFICIENCY ENGINEER (CURRENT) USE OF ANTICOAGULANT 07/08/2017 VICKI CARRERO FACC, ALI FACP CCDS Ot Z79.899 OTHER EFFICIENCY ENGINEER (CURRENT) DRUG THERAPY 07/08/2017 VICKI CARRERO FACC, ALI FACP CCDS Ot Z86.718 PERSONAL HISTORY OF OTHER VENOUS THROMBO 07/16/2017 ROCIO FIELD PERSONNEL ARBITRATOR Ot E78.4 OTHER HYPERLIPIDEMIA 07/16/2017 ROCIO FIELD L PERSONNEL ARBITRATOR Ot I10 ESSENTIAL (PRIMARY) HYPERTENSION 07/16/2017 ROCIO FIELD PERSONNEL ARBITRATOR Ot I65.23 OCCLUSION AND STENOSIS OF BILATERAL [place] 07/16/2017 ROCIO FIELD PERSONNEL ARBITRATOR Ot R07.89 OTHER CHEST PAIN 07/16/2017 ROCIO FIELD PERSONNEL ARBITRATOR Ot E78.4 OTHER HYPERLIPIDEMIA 07/16/2017 ROCIO FIELD PERSONNEL ARBITRATOR Ot I10 ESSENTIAL (PRIMARY) HYPERTENSION 07/16/2017 ROCIO FIELD PERSONNEL ARBITRATOR Ot I65.23 OCCLUSION AND STENOSIS OF BILATERAL [place] 07/16/2017 ROCIO FIELD PERSONNEL ARBITRATOR Ot R07.89 OTHER CHEST PAIN 07/16/2017 NAHOMY BETH MD Ot I25.10 ATHSCL HEART DISEASE OF [place] CORONARY 09/05/2017 NAHOMY BETH MD, Ot Z12.31 ENCNTR SCREEN MAMMOGRAM FOR MALIGNANT NE 09/19/2017 VICKI CARRERO FACC, ALI FACP CCDS Ot 785.1 PALPITATIONS 09/19/2017 VICKI CARRERO FACC, ALI FACP CCDS Ot 786.50 CHEST PAIN NOS 09/19/2017 NAHOMY BETH MD Ot I87.2 VENOUS INSUFFICIENCY (CHRONIC) (PERIPHER 09/19/2017 NAHOMY BETH MD Ot Z79.01 PENITENTIARY (CURRENT) USE OF ANTICOAGULANT 09/19/2017 JIMMY SPAULDING MD Ot F41.9 ANXIETY DISORDER, UNSPECIFIED 09/19/2017 JIMMY SPAULDING MD, Ot G40.909 EPILEPSY, UNSP, NOT INTRACTABLE, WITHOUT 09/19/2017 JIMMY SPAULDING MD Ot J90 PLEURAL EFFUSION, NOT ELSEWHERE CLASSIFI 09/19/2017 JIMMY SPAULDING MD, Ot M19.91 PRIMARY OSTEOARTHRITIS, UNSPECIFIED SITE 09/19/2017 JIMMY SPAULDING MD, Ot N39.0 URINARY TRACT INFECTION, SITE NOT SPECIF 09/19/2017 JIMMY SPAULDING MD Ot R79.1 ABNORMAL COAGULATION PROFILE 09/19/2017 JIMMY SPAULDING MD, Ot Z79.899 OTHER EFFICIENCY ENGINEER (CURRENT) DRUG THERAPY 09/19/2017 JIMMY SPAULDING MD, Ot Z85.51 PERSONAL HISTORY OF MALIGNANT NEOPLASM O 09/19/2017 JIMMY SPAULDING MD, Ot Z86.73 PRSNL HX OF TIA (TIA), AND CEREB INFRC W 09/19/2017 JIMMY SPAULDING MD, Ot Z92.21 PERSONAL HISTORY OF ANTINEOPLASTIC CHEMO 09/19/2017 CHELLY CARRERO, JIMMY Brooks Ot Z92.3 PERSONAL HISTORY OF IRRADIATION 09/19/2017 CHELLY CARRERO, JIMMY Brooks Ot Z93.6 OTHER ARTIFICIAL OPENINGS OF URINARY TRA 09/24/2017 NAHOMY BETH MD, Ot Z12.31 ENCNTR SCREEN MAMMOGRAM FOR MALIGNANT NE 12/05/2017 ZEESHAN CARRERO, KOREY Bernard Ot N28.9 DISORDER OF KIDNEY AND URETER, UNSPECIFI 12/05/2017 NAHOMY BETH MD Ot M81.0 AGE-RELATED OSTEOPOROSIS W/O CURRENT PAT 12/05/2017 NAHOMY BETH MD Ot E56.9 VITAMIN DEFICIENCY, UNSPECIFIED 12/05/2017 NAHOMY BETH MD, Ot G40.911 EPILEPSY, UNSPECIFIED, INTRACTABLE, WITH 12/05/2017 NAHOMY BETH MD Ot 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 PECTO 12/05/2017 NAHOMY BETH MD Ot I50.9 HEART FAILURE, UNSPECIFIED 12/05/2017 BAIMA, ROCIO L PERSONNEL ARBITRATOR Ot E78.4 OTHER HYPERLIPIDEMIA 12/05/2017 BAIMA, ROCIO L PERSONNEL ARBITRATOR Ot I10 ESSENTIAL (PRIMARY) HYPERTENSION 12/05/2017 BAIMA, ROCIO L PERSONNEL ARBITRATOR Ot I65.23 OCCLUSION AND STENOSIS OF BILATERAL [place] 12/05/2017 BAIMA, ROCIO L PERSONNEL ARBITRATOR Ot R07.89 OTHER CHEST PAIN 12/05/2017 BAIMA, ROCIO L PERSONNEL ARBITRATOR Ot E78.4 OTHER HYPERLIPIDEMIA 12/05/2017 BAIMA, ROCIO L PERSONNEL ARBITRATOR Ot I10 ESSENTIAL (PRIMARY) HYPERTENSION 12/05/2017 BAIMA, ROCIO L PERSONNEL ARBITRATOR Ot I65.23 OCCLUSION AND STENOSIS OF BILATERAL [place] 12/05/2017 BAIMA, ROCIO L PERSONNEL ARBITRATOR Ot R07.89 OTHER CHEST PAIN 12/05/2017 NAHOMY BETH MD Ot I25.10 ATHSCL HEART DISEASE OF [place] CORONARY 12/05/2017 NAHOMY BETH MD Ot Z12.31 ENCNTR SCREEN MAMMOGRAM FOR MALIGNANT NE 12/18/2017 KOREY BYERS MD Ot N19 UNSPECIFIED KIDNEY FAILURE 12/18/2017 KOREY BYERS MD Ot 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) 12/18/2017 KOREY BYERS MD Ot N19 UNSPECIFIED KIDNEY FAILURE 12/18/2017 KOREY BYERS MD Ot 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) 01/07/2018 KOREY BYERS MD Ot N19 UNSPECIFIED KIDNEY FAILURE 01/07/2018 KOREY BYERS MD Ot 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) 01/17/2018 KOREY BYERS MD Ot N19 UNSPECIFIED KIDNEY FAILURE 01/17/2018 KOREY BYERS MD, Ot 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) Procedures Code Description Performed By Performed On [facility] Jonathan Najera 05/20/2012 81538 INR (IN HOUSE) 05/20/2012 31398 INR (IN HOUSE) 05/20/2012 14722 BONE DENSITY, DEXA 06/01/2012 [facility] S Gilbert Schultz 08/11/2012 58315 ROUTINE VENIPUNCTURE 09/23/2012 01918 INR (IN HOUSE) 09/23/2012 51376 BMP 09/23/2012 [id number] GFR CALC (RESULT ONLY) 09/23/2012 51073 DILANTIN 09/23/2012 OtolarynRoldan Lee 09/24/2012 37418 DEXA BONE DENSITY, AXIAL 12/02/2012 72027 INR (IN HOUSE) 12/02/2012 J3420 B12 VITAMIN INJECTION 12/02/2012 23461 THERAPUTIC INJ SQ/IM 12/02/2012 53414 INR (IN HOUSE) 01/22/2013 General S Nick Oneill 02/16/2013 72519 PT/INR 07/27/2013 Podiatry Casie Arriaga 08/27/2013 51385 XRAY FOOT LEFT COMP MIN 3 VIEWS 01/01/2014 57142 DEBRIDE NAIL 1-5 05/14/2014 Results Test Result Range PT panel in platelet poor plasma by coagulation assay - 01/27/16 13:00 Prothrombin time (PT) in platelet poor plasma by coagulation assay 21.8 s 12.2-14.7 INR in platelet poor plasma or blood by coagulation assay 1.9 0.8-1.4 Whole blood basic metabolic panel - 02/24/16 13:05 Serum or plasma sodium measurement (moles/volume) 138 mmol/L 135-145 Serum or plasma potassium measurement (moles/volume) 3.5 mmol/L 3.6-5.0 Serum or plasma chloride measurement (moles/volume) 110 mmol/L 98-107 Carbon dioxide 21 mmol/L 21-32 Serum or plasma anion gap determination (moles/volume) 7 mmol/L 5-14 Serum or plasma urea nitrogen measurement (mass/volume) 14 mg/dL 7-18 Serum or plasma creatinine measurement (mass/volume) 0.95 mg/dL 0.60-1.30 Serum or plasma urea nitrogen/creatinine mass [...] or blood by coagulation assay 1.4 0.8-1.4 PT panel in platelet poor plasma by coagulation assay - 02/15/17 08:28 Prothrombin time (PT) in platelet poor plasma by coagulation assay 17.1 s 12.2-14.7 INR in platelet poor plasma or blood by coagulation assay 1.4 0.8-1.4 PT panel in platelet poor plasma by coagulation assay - 04/07/17 08:21 Prothrombin time (PT) in platelet poor plasma by coagulation assay 17.9 s 12.2-14.7 INR in platelet poor plasma or blood by coagulation assay 1.5 0.8-1.4 Serum or plasma phenytoin measurement (mass/volume) - 04/07/17 08:21 Serum or plasma phenytoin measurement (mass/volume) 10.8 ug/mL 10.0-20.0 PT panel in platelet poor plasma by coagulation assay - 06/07/17 17:13 Prothrombin time (PT) in platelet poor plasma by coagulation assay 15.8 s 12.2-14.7 INR in platelet poor plasma or blood by coagulation assay 1.3 0.8-1.4 Automated blood complete blood count (hemogram) panel - 07/02/17 07:21 Blood leukocytes automated count (number/volume) 6.7 10*3/uL 4.3-11.0 Blood erythrocytes automated count (number/volume) 3.54 10*6/uL 4.35-5.85 Venous blood hemoglobin measurement (mass/volume) 11.2 g/dL 11.5-16.0 Blood hematocrit (volume fraction) 33 % 35-52 Automated erythrocyte mean corpuscular volume 93 [foz_us] 80-99 Automated erythrocyte mean corpuscular hemoglobin (mass per erythrocyte) 32 pg 25-34 Automated erythrocyte mean corpuscular hemoglobin concentration measurement ( mass/volume) 34 g/dL 32-36 Automated erythrocyte distribution width ratio 13.8 % 10.0-14.5 Automated blood platelet count (count/volume) 204 10*3/uL 130-400 Automated blood platelet mean volume measurement 9.7 [foz_us] 7.4-10.4 PT panel in platelet poor plasma by coagulation assay - 07/02/17 07:21 Prothrombin time (PT) in platelet poor plasma by coagulation assay 14.9 s 12.2-14.7 INR in platelet poor plasma or blood by coagulation assay 1.2 0.8-1.4 Activated partial thromboplastin time (aPTT) in platelet poor plasma bycoagulation assay - 07/02/17 07:21 Activated partial thromboplastin time (aPTT) in platelet poor plasma bycoagulation assay 32 s 24-35 Comprehensive metabolic panel - 07/02/17 07:21 Serum or plasma sodium measurement (moles/volume) 135 mmol/L 135-145 Serum or plasma potassium measurement (moles/volume) 4.0 mmol/L 3.6-5.0 Serum or plasma chloride measurement (moles/volume) 107 mmol/L 98-107 Carbon dioxide 20 mmol/L 21-32 Serum or plasma anion gap determination (moles/volume) 8 mmol/L 5-14 Serum or plasma urea nitrogen measurement (mass/volume) 13 mg/dL 7-18 Serum or plasma creatinine measurement (mass/volume) 0.79 mg/dL 0.60-1.30 Serum or plasma urea nitrogen/creatinine mass ratio 16 NRG Serum or plasma creatinine measurement with calculation of estimated glomerular filtration rate > NRG Serum or plasma glucose measurement (mass/volume) 87 mg/dL 70-105 Serum or plasma calcium measurement (mass/volume) 8.9 mg/dL 8.5-10.1 Serum or plasma total bilirubin measurement (mass/volume) 0.4 mg/dL 0.1-1.0 Serum or plasma alkaline phosphatase measurement (enzymatic activity/volume) 110 U/L 40-136 Serum or plasma aspartate aminotransferase measurement (enzymatic activity/ volume) 13 U/L 5-34 Serum or plasma alanine aminotransferase measurement (enzymatic activity/volume ) 12 U/L 0-55 Serum or plasma protein measurement (mass/volume) 6.9 g/dL 6.4-8.2 Serum or plasma albumin measurement (mass/volume) 3.9 g/dL 3.2-4.5 Lipid 1996 panel - 07/02/17 07:21 Serum or plasma triglyceride measurement (mass/volume) 73 mg/dL <150 Serum or plasma cholesterol measurement (mass/volume) 165 mg/dL < 200 Serum or plasma cholesterol in HDL measurement (mass/volume) 83 mg/ dL 40-60 Cholesterol in LDL [mass/volume] in serum or plasma by direct assay 42 mg/dL 1-129 Serum or plasma cholesterol in VLDL measurement (mass/volume) 15 mg/ dL 5-40 Methicillin resistant Staphylococcus aureus (MRSA) screening culture - 07:21 Methicillin resistant Staphylococcus aureus (MRSA) screening culture NEG NRG Complete blood count (CBC) with automated white blood cell (WBC) differential - 09/19/17 03:30 Blood leukocytes automated count (number/volume) 4.9 10*3/uL 4.3-11.0 Blood erythrocytes automated count (number/volume) 3.25 10*6/uL 4.35-5.85 Venous blood hemoglobin measurement (mass/volume) 10.0 g/dL 11.5-16.0 Blood hematocrit (volume fraction) 31 % 35-52 Automated erythrocyte mean corpuscular volume 95 [foz_us] 80-99 Automated erythrocyte mean corpuscular hemoglobin (mass per erythrocyte) 31 pg 25-34 Automated erythrocyte mean corpuscular hemoglobin concentration measurement ( mass/volume) 33 g/dL 32-36 Automated erythrocyte distribution width ratio 13.6 % 10.0-14.5 Automated blood platelet count (count/volume) 169 10*3/uL 130-400 Automated blood platelet mean volume measurement 10.5 [foz_us] 7.4-10.4 Automated blood neutrophils/100 leukocytes 57 % 42-75 Automated blood lymphocytes/100 leukocytes 27 % 12-44 Blood monocytes/100 leukocytes 14 % 0-12 Automated blood eosinophils/100 leukocytes 2 % 0-10 Automated blood basophils/100 leukocytes 0 % 0-10 Blood neutrophils automated count (number/volume) 2.8 10*3 1.8-7.8 Blood lymphocytes automated count (number/volume) 1.3 10*3 1.0-4.0 Blood monocytes automated count (number/volume) 0.7 10*3 0.0-1.0 Automated eosinophil count 0.1 10*3/uL 0.0-0.3 Automated blood basophil count (count/volume) 0.0 10*3/uL 0.0-0.1 PT panel in platelet poor plasma by coagulation assay - 09/19/17 03:30 Prothrombin time (PT) in platelet poor plasma by coagulation assay 16.5 s 12.2-14.7 INR in platelet poor plasma or blood by coagulation assay 1.3 0.8-1.4 Activated partial thromboplastin time (aPTT) in platelet poor plasma bycoagulation assay - 09/19/17 03:30 Activated partial thromboplastin time (aPTT) in platelet poor plasma bycoagulation assay 24 s 24-35 Comprehensive metabolic panel - 09/19/17 03:30 Serum or plasma sodium measurement (moles/volume) 132 mmol/L 135-145 Serum or plasma potassium measurement (moles/volume) 4.6 mmol/L 3.6-5.0 Serum or plasma chloride measurement (moles/volume) 105 mmol/L 98-107 Carbon dioxide 21 mmol/L 21-32 Serum or plasma anion gap determination (moles/volume) 6 mmol/L 5-14 Serum or plasma urea nitrogen measurement (mass/volume) 15 mg/dL 7-18 Serum or plasma creatinine measurement (mass/volume) 0.87 mg/dL 0.60-1.30 Serum or plasma urea nitrogen/creatinine mass ratio 17 NRG Serum or plasma creatinine measurement with calculation of estimated glomerular filtration rate > NRG Serum or plasma glucose measurement (mass/volume) 90 mg/dL 70-105 Serum or plasma calcium measurement (mass/volume) 8.7 mg/dL 8.5-10.1 Serum or plasma total bilirubin measurement (mass/volume) 0.2 mg/dL 0.1-1.0 Serum or plasma alkaline phosphatase measurement (enzymatic activity/volume) 95 U/L 40-136 Serum or plasma aspartate aminotransferase measurement (enzymatic activity/ volume) 15 U/L 5-34 Serum or plasma alanine aminotransferase measurement (enzymatic activity/volume ) 11 U/L 0-55 Serum or plasma protein measurement (mass/volume) 6.6 g/dL 6.4-8.2 Serum or plasma albumin measurement (mass/volume) 3.7 g/dL 3.2-4.5 Serum or plasma C reactive protein measurement (mass/volume) - 09/19/17 03:30 Serum or plasma C reactive protein measurement (mass/volume) 0.87 mg /dL 0.00-0.50 DILANTIN (PHENYTOIN) - 09/19/17 03:30 DILANTIN PHEN 5.4 % 10.0-20.0 Capillary blood glucose measurement by glucometer (mass/volume) - 09/19/17 03: 51 Capillary blood glucose measurement by glucometer (mass/volume) 90 mg/dL 70-110 Complete urinalysis with reflex to culture - 09/19/17 03:55 Urine color determination YELLOW NRG Urine clarity determination CLEAR NRG Urine pH measurement by test strip 8 5-9 Specific gravity of urine by test strip 1.010 1.016- 1.022 Urine protein assay by test strip, semi-quantitative NEGATIVE NEGATIVE Urine glucose detection by automated test strip NEGATIVE NEGATIVE Erythrocytes detection in urine sediment by light microscopy 1+ NEGATIVE Urine ketones detection by automated test strip NEGATIVE NEGATIVE Urine nitrite detection by test strip POSITIVE NEGATIVE Urine total bilirubin detection by test strip NEGATIVE NEGATIVE Urine urobilinogen measurement by automated test strip (mass/volume) NORMAL NORMAL Urine leukocyte esterase detection by dipstick 1+ NEGATIVE Automated urine sediment erythrocyte count by microscopy (number/high power field) RARE NRG Automated urine sediment leukocyte count by microscopy (number/high power field ) [HPF] NRG Bacteria detection in urine sediment by light microscopy FEW NRG Crystals detection in urine sediment by light microscopy NONE NRG Casts detection in urine sediment by light microscopy NONE NRG Mucus detection in urine sediment by light microscopy SMALL NRG Complete urinalysis with reflex to culture YES NRG Urine drug screening test - 09/19/17 03:55 Urine phencyclidine detection by screening method NEGATIVE NEGATIVE Urine benzodiazepines detection by screening method POSITIVE NEGATIVE Urine cocaine detection NEGATIVE NEGATIVE Urine amphetamines detection by screening method NEGATIVE NEGATIVE Urine methamphetamine detection by screening method NEGATIVE NEGATIVE Urine cannabinoids detection by screening method NEGATIVE NEGATIVE Urine opiates detection by screening method NEGATIVE NEGATIVE Urine barbiturates detection POSITIVE NEGATIVE Screening urine tricyclic antidepressants detection NEGATIVE NEGATIVE Urine methadone detection by screening method NEGATIVE NEGATIVE Urine oxycodone detection NEGATIVE NEGATIVE Urine propoxyphene detection NEGATIVE NEGATIVE Bacterial urine culture - 09/19/17 03:55 Bacterial urine culture [id number] NRG COLONY COUNT 10,000/ML - 100,000/ML NRG FTX;REPORTABLE SENSITIVITIES REPORTED 09/21 12:33 NRG URINE CULTURE RESULTS PLUS NRG FREE TEXT ENTRY 3 MIXED GRAM POSITIVE JAY BANNER Bacterial susceptibility panel - 09/19/17 03:55 Gentamicin susceptibility test by minimum inhibitory concentration < = NRG Trimethoprim/sulfamethoxazole susceptibility test by minimum inhibitoryconcentration S NR Ampicillin susceptibility test by minimum inhibitory concentration 4 NRG Tobramycin susceptibility test by minimum inhibitory concentration < = NRG Cefazolin susceptibility test by minimum inhibitory concentration < = NRG Ceftriaxone susceptibility test by minimum inhibitory concentration <= NRG Ampicillin/sulbactam susceptibility test by minimum inhibitory concentration <= NRG Piperacillin/tazobactam susceptibility test by minimum inhibitory concentration S NRG Ciprofloxacin susceptibility test by minimum inhibitory concentration <= NRG Meropenem susceptibility test by minimum inhibitory concentration < = NRG Nitrofurantoin susceptibility test by minimum inhibitory concentration <= NRG Aztreonam susceptibility test by minimum inhibitory concentration < = NRG Extended spectrum beta lactamase (ESBL) producing bacteria susceptibility test by minimum inhibitory concentration - BANNER Bacterial susceptibility panel - 09/19/17 03:55 Gentamicin susceptibility test by minimum inhibitory concentration < = NRG Trimethoprim/sulfamethoxazole susceptibility test by minimum inhibitoryconcentration S NRG Ampicillin susceptibility test by minimum inhibitory concentration > = NRG Tobramycin susceptibility test by minimum inhibitory concentration < = NRG Cefazolin susceptibility test by minimum inhibitory concentration < = NRG Ceftriaxone susceptibility test by minimum inhibitory concentration <= NRG Ampicillin/sulbactam susceptibility test by minimum inhibitory concentration S NRG Piperacillin/tazobactam susceptibility test by minimum inhibitory concentration S NRG Ciprofloxacin susceptibility test by minimum inhibitory concentration <= NRG Meropenem susceptibility test by minimum inhibitory concentration < = NRG Nitrofurantoin susceptibility test by minimum inhibitory concentration 64 NRG Aztreonam susceptibility test by minimum inhibitory concentration < = NRG Extended spectrum beta lactamase (ESBL) producing bacteria susceptibility test by minimum inhibitory concentration - NRG Encounters ACCT No. Visit Date/Time Discharge Status Pt. Type Provider Facility Loc./Unit Complaint [id number] 07/07/2014 16:42:00 07/07/2014 23:59:59 CLS Outpatient NAHOMY BETH MD [id number] 07/02/2014 09:57:00 07/02/2014 23:59:59 CLS Outpatient CASIE ARRIAGA DPM [id number] 05/27/2014 15:44:00 05/27/2014 23:59:59 CLS Outpatient NAHOMY BETH MD [id number] 05/14/2014 09:51:00 05/14/2014 23:59:59 CLS Outpatient CASIE ARRIAGA DPM [id number] 03/12/2014 09:45:00 03/12/2014 23:59:59 CLS Outpatient CASIE ARRIAGA DPM [id number] 03/04/2014 09:43:00 03/04/2014 23:59:59 CLS Outpatient NAHOMY BETH MD [id number] 01/01/2014 09:05:00 01/01/2014 23:59:59 CLS Outpatient NAIN HARO DO [id number] 01/01/2014 09:05:00 01/01/2014 23:59:59 CLS Outpatient NAIN HARO DO [id number] 10/29/2013 13:35:00 10/29/2013 23:59:59 CLS Outpatient NAHOMY BETH MD [id number] 08/27/2013 15:00:00 08/27/2013 23:59:59 CLS Outpatient NAHOMY BETH MD [id number] 07/30/2013 15:19:00 07/30/2013 23:59:59 CLS Outpatient NAHOMY BETH MD [id number] 03/02/2013 13:56:00 03/02/2013 23:59:59 CLS Outpatient NAHOMY BETH MD [id number] 09/23/2012 11:45:00 09/23/2012 23:59:59 CLS Outpatient NAHOMY BETH MD [id number] 05/20/2012 09:24:00 05/20/2012 23:59:59 [place] [id number] 04/15/2012 15:12:00 04/15/2012 23:59:59 CLS Outpatient HARO NAIN DOWELL [id number] 02/09/2013 07:55:00 Document Registration [id number] 02/05/2013 14:58:00 Document Registration [id number] 12/02/2012 09:33:00 Document Registration [id number] 12/02/2012 09:33:00 Document Registration [id number] 09/23/2012 11:45:00 Document Registration [id number] 01/17/2018 09:00:00 01/17/2018 23:59:59 CLS Outpatient NAHOMY BETH MD [facility] [id number] 12/17/2017 10:28:00 12/17/2017 23:59:59 CLS Outpatient KOREY BYERS MD [facility] RAD RENAL FAILURE [id number] 12/04/2017 16:02:00 12/04/2017 23:59:59 CLS Preadmit KOREY BYERS MD [facility] RAD RENAL FALURE [id number] 09/19/2017 04:45:00 09/19/2017 12:45:00 DIS Inpatient JIMMY SPAULDING MD [facility] 4TH UTI-SZ> 30 MINS, SUBTHERAPEUTIC DILANTIN LEVEL, [id number] 09/04/2017 10:08:00 09/04/2017 23:59:59 CLS Outpatient NAHOMY BETH MD [facility] RAD SCREENING [id number] 07/02/2017 06:41:00 07/02/2017 14:50:00 DIS Outpatient VICKI CARRERO FACCYORDAN FACP CCDS [facility] CATH AORTIC VALVE REGURG [id number] 06/13/2017 07:02:00 06/13/2017 23:59:59 CLS Outpatient CRISTIANROCIO OTERO ROBBY [facility] CARD R07.89 [id number] 06/12/2017 09:37:00 06/12/2017 23:59:59 CLS Outpatient EMIRROCIO ROBBY [facility] CARD R07.89 CHEST PAIN [id number] 06/07/2017 17:12:00 06/07/2017 23:59:59 CLS Outpatient NAHOMY BETH MD [facility] LABNPT [id number] 05/10/2017 13:20:00 05/10/2017 15:10:00 DIS Outpatient [facility] [id number] 04/18/2017 08:29:00 04/18/2017 23:59:59 CLS Outpatient NAHOMY BETH MD [facility] RAD M81.0 AGE RELATED OSTEOPOROSIS [id number] 04/07/2017 08:20:00 04/07/2017 23:59:59 CLS Outpatient NAHOMY BETH MD [facility] LABNPT [id number] 02/15/2017 07:26:00 02/15/2017 10:30:00 DIS Outpatient ALLISON BELLA MD [facility] ENDO RECTAL BLEEDING, ANEMIA , VENTRAL HERNIA [id number] 02/13/2017 08:20:00 02/13/2017 23:59:59 CLS Preadmit NAHOMY BETH MD [facility] RAD M81.0 [id number] 02/08/2017 05:55:00 02/08/2017 12:30:00 DIS Outpatient ALLISON BELLA MD [facility] PREOP RECTAL BLEEDING ANEMIA , VENTRAL HERNIA [id number] 12/03/2016 10:15:00 12/03/2016 23:59:59 CLS Outpatient KOREY BYERS MD [facility] RAD RENAL INSUFFICIENCY [id number] 09/14/2016 10:57:00 09/14/2016 23:59:59 CLS Outpatient NAHOMY BETH MD [facility] LABNPT I25.10, I25.810 [id number] 08/23/2016 11:47:00 08/23/2016 23:59:59 CLS Outpatient NAHOMY BETH MD [facility] RAD SCREENING [id number] 07/20/2016 00:09:00 07/20/2016 23:59:59 CLS Preadmit NAHOMY BETH MD [facility] DAVID ACCESS [id number] 05/16/2016 12:41:00 07/19/2016 00:01:00 DIS Outpatient NAHOMY BETH MD [facility] [place] ACCESS [id number] 04/06/2016 12:35:00 04/12/2016 00:01:00 DIS Outpatient NAHOMY BETH MD [facility] [place] ACCESS [id number] 12/30/2015 12:35:00 01/05/2016 00:01:00 DIS Outpatient NAHOMY BETH MD [facility] [place] ACCESS [id number] 11/17/2015 11:14:00 11/17/2015 23:59:59 CLS Outpatient KOREY BYERS MD [facility] RAD RENAL FAILURE [id number] 09/23/2015 12:46:00 09/29/2015 00:01:00 DIS Outpatient NAHOMY BETH MD [facility] ACCESS [id number] 09/02/2015 15:34:00 09/02/2015 19:28:00 DIS Emergency ALLISON THOMPSON MD [facility] ER L LEG PAIN [id number] 06/20/2015 12:42:00 06/23/2015 00:01:00 DIS Outpatient NAHOMY BETH MD [facility] [place] ACCESS [id number] 06/03/2015 01:11:00 06/03/2015 02:20:00 DIS Emergency JEANETTE KENDRICK DO [facility] ER FALL-SWOLLEN ANKLE [id number] 04/21/2015 11:26:00 04/21/2015 23:59:59 CLS Outpatient NAHOMY BETH MD [facility] RAD ABD PAIN AND PELVIC [id number] 03/11/2015 12:33:00 03/23/2015 00:01:00 DIS Outpatient NAHOMY BETH MD [facility] ACCESS [id number] 02/25/2015 12:48:00 02/25/2015 23:59:59 CLS Outpatient ROCIO FIELD [facility] LAB HYPERLIPIDEMIA [id number] 02/11/2015 12:40:00 02/17/2015 00:01:00 DIS Outpatient NAHOMY BETH MD [facility] [place] ACCESS [id number] 11/05/2014 11:39:00 11/11/2014 00:01:00 DIS Outpatient NAHOMY BETH MD [facility] [place] ACCESS [id number] 07/09/2014 13:07:00 08/05/2014 00:01:00 DIS Outpatient NAHOMY BETH MD [facility] [place] ACCESS [id number] 07/19/2014 08:00:00 07/19/2014 23:59:59 CLS Preadmit SATYA DPM, CASIE Q [facility] BILATERAL HAMMERTOE [id number] 07/13/2014 10:24:00 07/13/2014 23:59:59 CLS Outpatient SATYA DPM, CASIE Q [facility] PREOP BILATERAL HAMMERTOE [id number] 06/30/2014 11:00:00 06/30/2014 23:59:59 CLS Preadmit YORDAN COHEN MD, FACC, FACP CCDS [facility] CARD PALPITATIONS, HTN,CP [id number] 04/26/2014 07:08:00 06/29/2014 00:01:00 DIS Outpatient YORDAN COHEN MD, FACC, FACP CCDS [facility] CARD PALPITATIONS, HTN,CP [id number] 05/18/2014 09:04:00 05/18/2014 23:59:59 CLS Outpatient VICKI CARRERO FACC, ALI FACP CCDS [facility] CATH PALPITATIONS, DIZZINESS [id number] 05/13/2014 11:05:00 05/13/2014 23:59:59 CLS Outpatient VICKI CARRERO FACMariaelena, ALI FACP CCDS [facility] RAD CAROTID ARTERY STENOSIS [id number] 04/23/2014 13:06:00 04/29/2014 00:01:00 DIS Outpatient NAHOMY BETH MD [facility] DAVID ACCESS [id number] 04/26/2014 11:35:00 04/26/2014 23:59:59 CLS Outpatient VICKI CARRERO FACC, YORDAN FACLaz CCDS [facility] CARD PALPITATIONS, CP,CVA,DVT [id number] 02/26/2014 08:48:00 02/26/2014 23:59:59 CLS Outpatient NICK ONEILL MD [facility] RAD INCOMPLETE COLONOSCOPY [id number] 02/25/2014 07:13:00 02/25/2014 12:01:00 DIS Outpatient NICK ONEILL MD [facility] ANEMIA,DIARRHEA [id number] 02/24/2014 07:30:00 02/24/2014 23:59:59 CLS Outpatient NICK ONEILL MD [facility] PREOP ANEMIA [id number] 01/29/2014 12:56:00 01/29/2014 23:59:59 CLS Outpatient ROCIO FIELD [facility] LAB CVA,DVT [id number] 01/15/2014 12:34:00 01/21/2014 00:01:00 DIS Outpatient MAYELIN ETIENNE MD [facility] DAV[facility] ACCESS [id number] 12/16/2013 07:16:00 12/16/2013 11:02:00 DIS Emergency KRISTY WALDRON MD [facility] ER UNRESPONSIVE [id number] 11/12/2013 13:11:00 11/12/2013 23:59:59 CLS Outpatient KOREY BYERS MD [facility] RAD RENAL INSUFFICIENCY [id number] 10/09/2013 12:57:00 10/21/2013 00:01:00 DIS Outpatient MAYELIN ETIENNE MD [facility] DAVID ACCESS [id number] 07/24/2013 18:12:00 07/24/2013 22:39:00 DIS Emergency KRSITY WALDRON MD [facility] ER SEIZURE [id number] 07/03/2013 06:36:00 07/03/2013 23:59:59 CLS Outpatient NICK ONEILL MD [facility] POOR VENOUS ACCESS [id number] 06/29/2013 08:37:00 06/29/2013 23:59:59 CLS Outpatient NICK ONEILL MD [facility] PREOP POOR VENOUS ACCESS [id number] 05/11/2013 09:36:00 06/16/2013 00:01:00 DIS Outpatient MAYELIN ETIENNE MD [facility] DAV[facility] ACCESS [id number] 04/09/2013 10:02:00 04/09/2013 23:59:59 CLS Outpatient ROCIO FIELD [facility] RAD CAROTID ARTERIAL DISEASE,IV CONTRAST [id number] 03/18/2013 09:00:00 03/18/2013 23:59:59 CLS Outpatient NAHOMY BETH MD [facility] LAB HIGH RISK MEDICATION,CRF [id number] 12/11/2012 10:16:00 03/11/2013 00:01:00 DIS Outpatient MAYELIN ETIENNE MD [facility] DAVID ACCESS [id number] 03/04/2013 05:55:00 03/06/2013 14:10:00 DIS Outpatient NICK ONEILL MD [facility] VENTRAL HERNIA/NO VENOUS ACCESS [id number] 02/27/2013 09:45:00 02/27/2013 23:59:59 CLS Outpatient VICKI CARRERO FACCYORDAN FACP CCDS [facility] RAD CVD [id number] 02/27/2013 09:01:00 02/27/2013 23:59:59 CLS Outpatient NINO CARRERO, NICK Gonzalez [facility] PREOP VENTRAL HERNIA/NO VENOUS ACCESS [id number] 02/06/2013 09:51:00 02/08/2013 16:10:00 DIS Inpatient NAHOMY BETH MD [facility] 4TH ANEMIA [id number] 02/03/2013 20:27:00 02/03/2013 23:24:00 DIS Emergency DEEPTI MARTINEZ MD [facility] ER INJ FROM FALL [id number] 01/31/2013 19:00:00 01/31/2013 22:08:00 DIS Emergency DEEPTI MARTINEZ MD [facility] ER FALL [id number] 01/09/2013 23:26:00 01/10/2013 11:46:00 DIS Inpatient NAHOMY BETH MD [facility] ICU CHEST PAIN [id number] 12/11/2012 09:43:00 12/11/2012 23:59:59 CLS Outpatient LUCIANA MARTINEZ [facility] LAB CAD [id number] 10/28/2012 08:31:00 10/28/2012 14:30:00 DIS Outpatient ARUN HERNANDEZ MD [facility] SDC IV ACCESS [id number] 10/22/2012 10:27:00 10/22/2012 23:59:59 CLS Outpatient ARUN HERNANDEZ MD [facility] PREOP IV ACCESS [id number] 06/03/2015 01:23:00 Document Registration [id number] 06/03/2015 01:22:00 Document Registration [id number] 06/03/2015 01:22:00 Document Registration [id number] 09/04/2012 09:02:00 Document Registration [id number] 08/14/2012 14:39:00 Document Registration [id number] 08/14/2012 14:25:00 Document Registration [id number] 06/05/2012 10:08:00 Document Registration [id number] 05/20/2012 09:35:00 Document Registration [id number] 03/24/2012 10:10:00 Document Registration [id number] 03/12/2012 13:12:00 Document Registration [id number] 03/06/2012 14:34:00 Document Registration [id number] 02/04/2012 12:57:00 Document Registration [id number] 10/11/2011 09:50:00 Document Registration [id number] 09/04/2011 10:49:00 Document Registration [id number] 08/01/2011 09:27:00 Document Registration [id number] 07/27/2011 06:06:00 Document Registration [id number] 07/26/2011 13:02:00 Document Registration [id number] 07/23/2011 05:35:00 Document Registration [id number] 07/20/2011 15:19:00 Document Registration [id number] 03/28/2011 12:44:00 Document Registration [id number] 12/06/2010 12:32:00 Document Registration [id number] 09/04/2010 11:27:00 Document Registration [id number] 08/29/2010 11:50:00 Document Registration [id number] 08/23/2010 11:11:00 Document Registration [id number] 08/16/2010 13:00:00 Document Registration [id number] 06/22/2010 13:00:00 Document Registration [id number] 05/17/2010 12:45:00 Document Registration [id number] 05/02/2010 11:11:00 Document Registration [id number] 03/09/2010 13:06:00 Document Registration [id number] 02/17/2010 14:05:00 Document Registration [id number] 01/10/2010 13:36:00 Document Registration [id number] 12/13/2009 09:59:00 Document Registration [id number] 05/20/2007 15:19:00 Document Registration [id number] 03/26/2015 05:36:16 ACT Document Registration
[2018-02-04 14:03] LABS: AMORPHOUS SEDIMENT,UR MOD AMOR PHOSPHATE /LPF; BACTERIA,URINE FEW /HPF; RBC,URINE RARE /HPF
[2018-02-04 14:04] LABS: TRIPLE PHOSPHATE CRYSTAL,UR LARGE /LPF
--- NOTE | 2018-02-04 14:06 | Diagnostic Imaging Report ---
INDICATION: Unresponsive. Comparison made with prior examination 09/19/2017. FINDINGS: There are previous postsurgical changes of a left craniotomy. There is prominence of ventricles and sulci. There is no hydrocephalus or midline shift. There is no intracranial mass, hemorrhage or extra-axial fluid collection. There is some chronic microvascular ischemic disease. Sinuses and mastoid air cells are clear. IMPRESSION: Atrophy and some chronic microvascular ischemic disease, however, no acute intracranial abnormality. Dictated by: Dictated on workstation # [id number]
[2018-02-04 14:46] LABS: BASOPHILS % (AUTO) 0 % (0-10); EOSINOPHILS # (AUTO) 0.1 10^3/uL (0.0-0.3); EOSINOPHILS % (AUTO) 2 % (0-10); HEMATOCRIT 36 % (35-52); LYMPHOCYTES # (AUTO) 1.1 X 10^3 (1.0-4.0); LYMPHOCYTES % (AUTO) 22 % (12-44); MEAN CORPUSCULAR HEMOGLOBIN 31 PG (25-34); MEAN CORPUSCULAR HGB CONC 33 G/DL (32-36); MEAN CORPUSCULAR VOLUME 95 FL (80-99); MEAN PLATELET VOLUME 10.6 FL (7.4-10.4); MONOCYTES # (AUTO) 0.5 X 10^3 (0.0-1.0); MONOCYTES % (AUTO) 11 % (0-12); NEUTROPHILS # (AUTO) 3.2 X 10^3 (1.8-7.8); NEUTROPHILS % (AUTO) 65 % (42-75); PLATELET COUNT 175 10^3/uL (130-400); RED BLOOD COUNT 3.82 10^6/uL (4.35-5.85); RED CELL DISTRIBUTION WIDTH 14.2 % (10.0-14.5); WHITE BLOOD COUNT 4.9 10^3/uL (4.3-11.0)
[2018-02-04 14:54] LABS: FIBRIN DEGRADATION PRODUCTS 0.39 UG/ML (0.00-0.49); INR 1.3 (0.8-1.4); PROTHROMBIN TIME PATIENT 15.8 SEC (12.2-14.7)
[2018-02-04 14:59] LABS: ALANINE AMINOTRANSFERASE 15 U/L (0-55); ALBUMIN 4.2 GM/DL (3.2-4.5); ALKALINE PHOSPHATASE 112 U/L (40-136); BILIRUBIN,TOTAL 0.4 MG/DL (0.1-1.0); BUN/CREATININE RATIO 17; CALCIUM 9.5 MG/DL (8.5-10.1); CARBON DIOXIDE 22 MMOL/L (21-32); CHLORIDE 105 MMOL/L (98-107); CREATININE SERUM 0.84 MG/DL (0.60-1.30); GFR ESTIMATED > 60; GLUCOSE 113 MG/DL (70-105); POTASSIUM 3.6 MMOL/L (3.6-5.0); SODIUM 134 MMOL/L (135-145); TOTAL PROTEIN 7.7 GM/DL (6.4-8.2)
[2018-02-04] MEDS ORDERED: cefTRIAXone INJECTION 1,000 MG in NS (IVPB) 50 ML IV ONE (15:15)
--- OUTSIDE RECORDS SUMMARY | 2018-02-04 16:30 | XMS REPORT | Continuity of Care Document ---
Author Author [facility] Address Unknown Phone Unavailable Allergies Active Description Code Type Severity Reaction Onset Reported/Identified Relationship to Patient Clinical Status Yes acetaminophen [id number] Drug Allergy Unknown N/A 03/18/2006 Yes ALL FISH ALL FISH Unknown N/A 03/18/2006 Yes amitriptyline [id number] Drug Allergy Unknown N/A 03/18/2006 Yes ANITHISTAMINES ANITHISTAMINES Unknown N/A 03/18/2006 Yes aspirin [id number] Drug Allergy Unknown N/A 03/18/2006 Yes Caramiphen [id number] Drug Allergy Unknown N/A 03/18/2006 Yes carbamazepine [id number] Drug Allergy Unknown N/A 03/18/2006 Yes clarithromycin Q807585774 Drug Allergy Unknown N/A 03/18/2006 Yes codeine F686151823 Drug Allergy Unknown N/A 03/18/2006 Yes COFFEE COFFEE Unknown N/A 03/18/2006 Yes diazepam [id number] Drug Allergy Unknown N/A 03/18/2006 Yes diphenhydramine [id number] Drug Allergy Unknown N/A 03/18/2006 Yes doxycycline [id number] Drug Allergy Unknown N/A 03/18/2006 Yes egg [id number] Drug Allergy Unknown N/A 03/18/2006 Yes fish oil [id number] Drug Allergy Unknown N/A 03/18/2006 Yes flavoxate [id number] Drug Allergy Unknown N/A 03/18/2006 Yes hydrocodone [id number] Drug Allergy Unknown N/A 03/18/2006 Yes hydroxyzine [id number] Drug Allergy Unknown N/A 03/18/2006 Yes hyoscyamine F485391404 Drug Allergy Unknown N/A 03/18/2006 Yes imipramine K132150924 Drug Allergy Unknown N/A 03/18/2006 Yes levofloxacin P270757068 Drug Allergy Unknown N/A 03/18/2006 Yes Liver Extract [id number] Drug Allergy Unknown N/A 03/18/2006 Yes lorazepam [id number] Drug Allergy Unknown N/A 03/18/2006 Yes milk B623698931 Drug Allergy Unknown N/A 03/18/2006 Yes nitrofurantoin K890117085 Drug Allergy Unknown N/A 03/18/2006 Yes oxybutynin E617902736 Drug Allergy Unknown N/A 03/18/2006 Yes Penicillins P107610183 Drug Allergy Unknown N/A 03/18/2006 Yes pentazocine B188316372 Drug Allergy Unknown N/A 03/18/2006 Yes phenazopyridine I286651697 Drug Allergy Unknown N/A 03/18/2006 Yes phenylpropanolamine K586042319 Drug Allergy Unknown N/A 03/18/2006 Yes procaine [id number] Drug Allergy Unknown N/A 03/18/2006 Yes promethazine K873689408 Drug Allergy Unknown N/A 03/18/2006 Yes propoxyphene [id number] Drug Allergy Unknown N/A 03/18/2006 Yes pseudoephedrine J163279517 Drug Allergy Unknown N/A 03/18/2006 Yes Sulfa (Sulfonamide Antibiotics) [id number] Drug Allergy Unknown N/A 2005 Yes tetracycline [id number] Drug Allergy Unknown N/A 03/18/2006 Yes tramadol K793163613 Drug Allergy Unknown N/A 03/18/2006 Yes zinc acetate N841269658 Drug Allergy Unknown N/A 03/18/2006 Yes aspirin [...] Drug Allergy 03/02/2011 Yes coffee (Coffea arabica) [id number] Drug Allergy Unknown N/A 09/19/2017 Yes Fish Containing Products [id number] Drug Allergy Unknown N/A 09/19/2017 Yes SPINACH [id number] Drug Allergy Unknown N/A 09/19/2017 Medications There [...] Joint Involving Ankle And Foot 11/28/2009 NAHOMY BEHT MD 845.10 Sprains And Strains Of Foot, [...] Strains Of Foot, Unspecified Site 11/28/2009 SATYA BRNATLEY, CASIE 719.47 Pain In Joint Involving Ankle [...] 585.9 CHRONIC KIDNEY DISEASE, UNSPECIFIED 01/09/2010 NAHOMY BEHT MD 459.81 VENOUS (PERIPHERAL) INSUFFICIENCY, UNSPECIFIED 01/09/2010 [...] MD 789.00 Abdominal Pain Unspecified Site 05/10/2011 HARO KRYSTAL DOWELLA K 789.00 Abdominal Pain Unspecified [...] Infections Of Unspecified Site 07/03/2011 HARO DO, ANIN K 707.10 Unspecified Ulcer Of Lower Limb [...] CONVULSIONS 10/14/2011 Ot 414.01 CORONARY ATHEROSCLEROSIS OF [place] CORON 10/14/2011 Ot 891.0 OPEN WND KNEE [...] OTHER LATE EFFECTS OF CEREBROVASCULAR DISEASE 04/15/2012 ANHOMY BETH MD 438.89 OTHER LATE EFFECTS OF [...] OTHER LATE EFFECTS OF CEREBROVASCULAR DISEASE 04/15/2012 ANHOMY BETH MD 438.89 OTHER LATE EFFECTS OF [...] WALDRON MD Ot 401.9 HYPERTENSION NOS 12/16/2013 RKISTY WALDRON MD Ot 412 OLD MYOCARDIAL INFARCT [...] 459.81 VENOUS INSUFFICIENCY NOS 05/07/2014 IGNACIA CARRERO, NHAOMY Moody Ot 459.81 05/07/2014 IGNACIA CARRERO, NAHOMY [...] ALI FACP CCDS Ot V58.61 06/30/2014 VICKI ELBRONC, ALI FACP CCDS Ot V58.69 07/02/2014 SATYA [...] FAC, ALI FACP CCDS Ot 785.1 07/13/2014 VICKI CARRERO FAC, ALI FACP CCDS [...] LUCIANA MARTINEZ Ot 414.00 06/03/2015 LUCIANA MARTINEZ BEATER HEAD Ot 785.1 06/03/2015 NINO CARRERO, NICK S Ot 459.81 06/03/2015 NINO CARRERO, NICK S Ot 553.20 06/03/2015 NINO CARRERO, NICK S Ot V72.63 06/03/2015 NINO CARRERO, NICK S Ot V74.8 06/03/2015 VICKI CARRERO FACC, ALI FACP CCDS Ot 433.10 06/03/2015 EMIR ROCIO L BEATER HEAD Ot 433.10 06/03/2015 IGNACIA CARRERO, NAHOMY Moody Ot 585.9 06/03/2015 IGNACIA CARRERO, NAHOMY Moody Ot V58.69 06/03/2015 NINO CARRERO, NICK S Ot 996.74 06/03/2015 NINO CARRERO, NICK S Ot V58.61 06/03/2015 NINO CARRERO, NICK S Ot 459.81 06/03/2015 NINO CARRERO, NICK S Ot V72.84 06/03/2015 ZEESHAN CARRERO, KOREY Bernard Ot 593.9 06/03/2015 EMIR ROCIO L BEATER HEAD Ot 272.4 06/03/2015 EMIR ROCIO L BEATER HEAD Ot 403.90 06/03/2015 EMIR ROCIO L BEATER HEAD Ot 434.91 06/03/2015 EMIR ROCIO L BEATER HEAD Ot 453.40 06/03/2015 EMIR ROCIO L BEATER HEAD Ot 585.2 06/03/2015 ROCIO FIELD BEATER HEAD Ot V58.61 06/03/2015 NINO CARRERO, NICK S Ot V72.84 06/03/2015 NINO CARRERO, NICK Gonzalez Ot 285.9 06/03/2015 VICIK CARRERO FACC, ALI FACP CCDS Ot 272.4 [...] ALI FACP CCDS Ot V58.61 06/03/2015 VICKI CARREOR FAC, ALI FACP CCDS Ot V58.69 06/03/2015 VICKI CARRERO FAC, ALI FACP CCDS Ot 785.1 06/03/2015 VICKI CARRERO FAC, ALI FACP CCDS Ot 786.50 06/03/2015 SATYA DPM, CASIE Q Ot 735.4 06/03/2015 SATYA DPM, CASIE Q Ot V72.63 06/03/2015 SATYA DPM, CASIE Q Ot V74.8 06/03/2015 ROCIO FIELD BEATER HEAD Ot 272.4 06/03/2015 NAHOMY BETH MD Ot I87.2 06/03/2015 NAHOMY BETH MD Ot R10.9 06/03/2015 NAHOMY BETH MD Ot R11.10 06/03/2015 JEANETTE KENDRICK DO Ot I69.954 [facility] 06/03/2015 JEANETTE KENDRICK DO Ot S80.11XA CONTUSION OF RIGHT LOWER LEG, INITIAL EN 06/03/2015 JEANETTE KENDRICK DO Ot S93.401A SPRAIN OF UNSPECIFIED LIGAMENT OF RIGHT 06/03/2015 JEANETTE KENDRICK DO Ot W05.0XXA FALL FROM NON-MOVING WHEELCHAIR, INITIAL 06/03/2015 JEANETTE KENDRICK DO Ot Y92.[address] IN [facility] NON-INSTITUT (PRIVATE 06/03/2015 JEANETTE KENDRICK DO Ot [...] Fransisco Ot I87.2 09/02/2015 JAY CARRERO, ALLISON Gonzaelz Ot I69.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 OTHER SEQUELAE FOLLOWING UNSPECIFIED CER [...] THOMPSON MD Ot Y92.[address] IN [facility] NON-INSTITUT (PRIVATE 09/02/2015 ALLISON THOMPSON MD Ot Y99.8 OTHER EXTERNAL CAUSE STATUS 09/02/2015 ALLISON THOMPSON MD Ot Z79.01 USP (CURRENT) USE OF ANTICOAGULANT 09/02/2015 ALLISON THOMPSON MD Ot Z79.899 OTHER ENVIRONMENTAL FIELD SERVICES TECHNICIAN (CURRENT) DRUG THERAPY 09/05/2015 ALLISON THOMPSON MD [...] (PERIPHER 05/04/2016 NAHOMY BETH MD Ot Z79.01 USP (CURRENT) USE OF ANTICOAGULANT 05/15/2016 NAHOMY BETH MD Ot I87.2 VENOUS INSUFFICIENCY (CHRONIC) (PERIPHER 05/15/2016 NAHOMY BETH MD Ot Z79.01 ENVIRONMENTAL FIELD SERVICES TECHNICIAN (CURRENT) USE OF ANTICOAGULANT 05/16/2016 NAHOMY BETH MD Ot I87.2 VENOUS INSUFFICIENCY (CHRONIC) (PERIPHER 05/16/2016 NAHOMY BETH MD Ot Z79.01 ENVIRONMENTAL FIELD SERVICES TECHNICIAN (CURRENT) USE OF ANTICOAGULANT 05/28/2016 NAHOMY BETH MD Ot I87.2 VENOUS INSUFFICIENCY (CHRONIC) (PERIPHER 05/28/2016 NAHOMY BETH MD Ot Z79.01 USP (CURRENT) USE OF ANTICOAGULANT 07/19/2016 NAHOMY BTEH MD Ot I87.2 VENOUS INSUFFICIENCY (CHRONIC) (PERIPHER 07/19/2016 NAHOMY BETH MD Ot Z79.01 USP (CURRENT) USE OF ANTICOAGULANT 08/22/2016 Ot 345.90 [...] ENCNTR SCREEN MAMMOGRAM FOR MALIGNANT NE 10/05/2016 IGNACIA CARRERO, NAHOMY Moody Ot I25.810 ATHEROSCLEROSIS [...] NATIV 11/29/2016 Ot 414.01 CORONARY ATHEROSCLEROSIS OF [place] CORON 11/29/2016 Ot 585.9 CHRONIC KIDNEY DISEASE, [...] EXAMINATION 11/29/2016 ARUN HERNANDEZ MD Ot V72.81 EBBN-LYK-RPTEHNCZY CARDIOVASCULAR 11/29/2016 ARUN HERNANDEZ MD Ot V72.83 EXAM PRE-OPERATIVE NEC 11/29/2016 DAVID CARRERO, ARUN Geronimo Ot V74.8 SCREEN-BACTERIAL DIS NEC 11/29/2016 LUCIANA MARTINEZ BEATER HEAD Ot 414.00 CORON ATHEROSCLER NOS TYPE VESSEL, NATIV 11/29/2016 LUCIANA MARTINEZ BEATER HEAD Ot 785.1 PALPITATIONS 11/29/2016 NINO CARRERO, NICK Gonzalez Ot 459.81 VENOUS INSUFFICIENCY NOS 11/29/2016 NINO CARRERO, NICK Gonzalez Ot 553.20 VENTRAL HERNIA NOS 11/29/2016 NICK ONEILL MD Ot V72.63 PRE-PROCEDURAL LABORATORY EXAMINATION 11/29/2016 NICK ONEILL MD Ot V74.8 SCREEN-BACTERIAL DIS NEC 11/29/2016 VICKI CARRERO FACC, YORDAN FACP CCDS Ot 433.10 CAROTID ARTERY OCCLUSION W O CEREBRAL IN 11/29/2016 ROCIO FIELD BEATER HEAD Ot 433.10 CAROTID ARTERY OCCLUSION W O [...] URETERAL DIS NOS 11/29/2016 ROCIO FIELD L BEATER HEAD Ot 272.4 HYPERLIPIDEMIA NEC/NOS 11/29/2016 ROCIO FIELD L BEATER HEAD Ot 403.90 HYPTNSV CHR KID DIS, UNSPEC, W CHR KD ST 11/29/2016 EMIR ROCIO L BEATER HEAD Ot 434.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 11/29/2016 EMIR ROCIO L BEATER HEAD Ot 453.40 ACUTE VENOUS EMBOLISM THROMBOSIS UNSP 11/29/2016 ROCIO FIELD L BEATER HEAD Ot 585.2 CHRONIC KIDNEY DISEASE, STAGE II (MILD) 11/29/2016 ROCIO FIELD BEATER HEAD Ot V58.61 ANTICOAGULANTS,LT,CURRENT USE 11/29/2016 NICK ONEILL [...] V74.8 SCREEN-BACTERIAL DIS NEC 11/29/2016 CRISTIANROCIO OTERO BEATER HEAD Ot 272.4 HYPERLIPIDEMIA NEC/NOS 11/29/2016 NAHOMY BETH MD Ot R10.9 UNSPECIFIED ABDOMINAL PAIN 11/29/2016 NAHOMY BETH MD Ot R11.10 VOMITING, UNSPECIFIED 11/29/2016 KOREY BYERS MD Ot N19 UNSPECIFIED KIDNEY FAILURE 11/29/2016 NAHOMY BETH MD Ot I87.2 VENOUS INSUFFICIENCY (CHRONIC) (PERIPHER 11/29/2016 NAHOMY BETH MD Ot Z79.01 ENVIRONMENTAL FIELD SERVICES TECHNICIAN (CURRENT) USE OF ANTICOAGULANT 11/29/2016 NAHOMY BETH [...] M81.0 AGE-RELATED OSTEOPOROSIS W/O CURRENT PAT 02/13/2017 ALLISNO BELLA MD Ot D64.9 ANEMIA, UNSPECIFIED 02/13/2017 [...] UNSPECIFIED 02/15/2017 ALLISON BELLA MD, Ot Z79.01 USP (CURRENT) USE OF ANTICOAGULANT 02/15/2017 ALLISON BELLA [...] MD Ot I50.9 HEART FAILURE, UNSPECIFIED 04/17/2017 NAHOYM BETH MD Ot M81.0 AGE-RELATED OSTEOPOROSIS W/O [...] MD Ot I25.10 ATHSCL HEART DISEASE OF [place] CORONARY 06/12/2017 NAHOMY BETH MD Ot I25.10 ATHSCL HEART DISEASE OF [place] CORONARY 06/12/2017 NAHOMY BETH MD Ot I25.10 ATHSCL HEART DISEASE OF [place] CORONARY 06/13/2017 ROCIO FIELD BEATER HEAD Ot E78.4 OTHER HYPERLIPIDEMIA 06/13/2017 ROCIO FIELD BEATER HEAD Ot I10 ESSENTIAL (PRIMARY) HYPERTENSION 06/13/2017 ROCIO FIELD BEATER HEAD Ot I65.23 OCCLUSION AND STENOSIS OF [place] 06/13/2017 ROCIO FIELD BEATER HEAD Ot R07.89 OTHER CHEST PAIN 07/02/2017 VICKI [...] CARRERO FACC, ALI FACP CCDS Ot Z79.01 ENVIRONMENTAL FIELD SERVICES TECHNICIAN (CURRENT) USE OF ANTICOAGULANT 07/02/2017 VICKI CARRERO FACC, ALI FACP CCDS Ot Z79.899 OTHER ENVIRONMENTAL FIELD SERVICES TECHNICIAN (CURRENT) DRUG THERAPY 07/02/2017 VICKI CARRERO FACC, YORDAN FACP CCDS Ot Z86.718 PERSONAL HISTORY OF OTHER VENOUS THROMBO 07/03/2017 ROCIO FIELD BEATER HEAD Ot E78.4 OTHER HYPERLIPIDEMIA 07/03/2017 ROCIO FIELD BEATER HEAD Ot I10 ESSENTIAL (PRIMARY) HYPERTENSION 07/03/2017 ROCIO FIELD BEATER HEAD Ot I65.23 OCCLUSION AND STENOSIS OF [place] 07/03/2017 ROCIO FIELD BEATER HEAD Ot R07.89 OTHER CHEST PAIN 07/03/2017 IGNACIA CARRERO, NAHOMY Moody Ot I25.10 ATHSCL HEART DISEASE OF [place] CORONARY 07/04/2017 VICKI CARRERO FACC, YORDAN FACP [...] AND STENOSIS OF [place] 07/04/2017 VICKI CARRERO FACC, ALI FACP CCDS Ot I69.354 HEMIPLGA FOLLOWING CEREBRAL INFRC AFFECT 07/04/2017 VICKI CARRERO FACC, YORDAN FACP CCDS Ot M19.91 PRIMARY OSTEOARTHRITIS, UNSPECIFIED SITE 07/04/2017 VICKI CARRERO FACC, ALI FACP CCDS Ot N18.3 CHRONIC KIDNEY DISEASE, STAGE 3 (MODERAT 07/04/2017 YORDAN COHEN MD, FACC FACP CCDS Ot Z79.01 ENVIRONMENTAL FIELD SERVICES TECHNICIAN (CURRENT) USE OF ANTICOAGULANT 07/04/2017 VICKI CARRERO FACC, YORDAN FACP CCDS Ot Z79.899 OTHER USP (CURRENT) DRUG THERAPY 07/04/2017 VICKI CARRERO FACC, YORDAN FACP CCDS Ot Z86.718 PERSONAL HISTORY OF OTHER VENOUS THROMBO 07/05/2017 ROCIO FIELD BEATER HEAD Ot E78.4 OTHER HYPERLIPIDEMIA 07/05/2017 ROCIO FIELD L BEATER HEAD Ot I10 ESSENTIAL (PRIMARY) HYPERTENSION 07/05/2017 ROCIO FIELD BEATER HEAD Ot I65.23 OCCLUSION AND STENOSIS OF [place] 07/05/2017 ROCIO FIELD BEATER HEAD Ot R07.89 OTHER CHEST PAIN 07/05/2017 VICKI [...] CARRERO FACC, ALI FACP CCDS Ot Z79.01 USP (CURRENT) USE OF ANTICOAGULANT 07/05/2017 VICKI CARRERO FACC, ALI FACP CCDS Ot Z79.899 OTHER USP (CURRENT) DRUG THERAPY 07/05/2017 VICKI CARRERO FACC, [...] CARRERO FACC, YORDAN FACP CCDS Ot Z79.01 ENVIRONMENTAL FIELD SERVICES TECHNICIAN (CURRENT) USE OF ANTICOAGULANT 07/08/2017 VICKI CARRERO FACC, ALI FACP CCDS Ot Z79.899 OTHER ENVIRONMENTAL FIELD SERVICES TECHNICIAN (CURRENT) DRUG THERAPY 07/08/2017 VICKI CARRERO FACC, ALI FACP CCDS Ot Z86.718 PERSONAL HISTORY OF OTHER VENOUS THROMBO 07/16/2017 ROCIO FIELD BEATER HEAD Ot E78.4 OTHER HYPERLIPIDEMIA 07/16/2017 ROCIO FIELD L BEATER HEAD Ot I10 ESSENTIAL (PRIMARY) HYPERTENSION 07/16/2017 ROCIO FIELD BEATER HEAD Ot I65.23 OCCLUSION AND STENOSIS OF [place] 07/16/2017 ROCIO FIELD BEATER HEAD Ot R07.89 OTHER CHEST PAIN 07/16/2017 ROCIO FIELD BEATER HEAD Ot E78.4 OTHER HYPERLIPIDEMIA 07/16/2017 ROCIO FIELD BEATER HEAD Ot I10 ESSENTIAL (PRIMARY) HYPERTENSION 07/16/2017 ROCIO FIELD BEATER HEAD Ot I65.23 OCCLUSION AND STENOSIS OF [place] 07/16/2017 ROCIO FIELD BEATER HEAD Ot R07.89 OTHER CHEST PAIN 07/16/2017 NAHOMY BETH MD Ot I25.10 ATHSCL HEART DISEASE OF [place] CORONARY 09/05/2017 NAHOMY BETH MD, Ot Z12.31 ENCNTR SCREEN MAMMOGRAM FOR MALIGNANT NE 09/19/2017 VICKI CARRERO FACC, ALI FACP CCDS Ot 785.1 PALPITATIONS 09/19/2017 VICKI CARRERO FACC, ALI FACP CCDS Ot 786.50 CHEST PAIN NOS 09/19/2017 NAHOMY BETH MD Ot I87.2 VENOUS INSUFFICIENCY (CHRONIC) (PERIPHER 09/19/2017 NAHOMY BETH MD Ot Z79.01 USP (CURRENT) USE OF ANTICOAGULANT 09/19/2017 JIMMY SPAULDING [...] 09/19/2017 JIMMY SPAULDING MD, Ot Z79.899 OTHER ENVIRONMENTAL FIELD SERVICES TECHNICIAN (CURRENT) DRUG THERAPY 09/19/2017 JIMMY SPAULDING MD, [...] HEART FAILURE, UNSPECIFIED 12/05/2017 BAIMA, ROCIO L BEATER HEAD Ot E78.4 OTHER HYPERLIPIDEMIA 12/05/2017 BAIMA, ROCIO L BEATER HEAD Ot I10 ESSENTIAL (PRIMARY) HYPERTENSION 12/05/2017 BAIMA, ROCIO L BEATER HEAD Ot I65.23 OCCLUSION AND STENOSIS OF [place] 12/05/2017 BAIMA, ROCIO L BEATER HEAD Ot R07.89 OTHER CHEST PAIN 12/05/2017 BAIMA, ROCIO L BEATER HEAD Ot E78.4 OTHER HYPERLIPIDEMIA 12/05/2017 BAIMA, ROCIO L BEATER HEAD Ot I10 ESSENTIAL (PRIMARY) HYPERTENSION 12/05/2017 BAIMA, ROCIO L BEATER HEAD Ot I65.23 OCCLUSION AND STENOSIS OF [place] 12/05/2017 BAIMA, ROCIO L BEATER HEAD Ot R07.89 OTHER CHEST PAIN 12/05/2017 NAHOMY BETH MD Ot I25.10 ATHSCL HEART DISEASE OF [place] CORONARY 12/05/2017 NAHOMY BETH MD Ot Z12.31 [...] Procedures Code Description Performed By Performed On [facility] Jonathan Najera 05/20/2012 63944 INR (IN HOUSE) 05/20/2012 89849 INR (IN HOUSE) 05/20/2012 75085 BONE DENSITY, DEXA 06/01/2012 [facility] S Gilbert Schultz 08/11/2012 33234 ROUTINE VENIPUNCTURE 09/23/2012 70965 INR (IN HOUSE) 09/23/2012 25153 BMP 09/23/2012 [id number] GFR CALC (RESULT ONLY) 09/23/2012 17666 DILANTIN 09/23/2012 OtolarynRoldan Lee 09/24/2012 37170 DEXA BONE DENSITY, AXIAL 12/02/2012 64826 INR (IN HOUSE) 12/02/2012 J3420 B12 VITAMIN INJECTION 12/02/2012 50062 THERAPUTIC INJ SQ/IM 12/02/2012 79270 INR (IN HOUSE) 01/22/2013 General S Nick Oneill 02/16/2013 00478 PT/INR 07/27/2013 Podiatry Casie Arriaga 08/27/2013 73913 XRAY FOOT LEFT COMP MIN 3 VIEWS 01/01/2014 11868 DEBRIDE NAIL 1-5 05/14/2014 Results Test Result [...] culture - 09/19/17 03:55 Bacterial urine culture [id number] NRG COLONY COUNT 10,000/ML - 100,000/ML NRG FTX;REPORTABLE SENSITIVITIES REPORTED 09/21 12:33 NRG URINE CULTURE RESULTS PLUS NRG FREE TEXT ENTRY 3 MIXED GRAM POSITIVE JAY [facility] Bacterial susceptibility panel - 09/19/17 03:55 Gentamicin [...] susceptibility test by minimum inhibitory concentration - [facility] Bacterial susceptibility panel - 09/19/17 03:55 Gentamicin [...] Status Pt. Type Provider Facility Loc./Unit Complaint [id number] 07/07/2014 16:42:00 07/07/2014 23:59:59 CLS Outpatient NAHOMY BETH MD [id number] 07/02/2014 09:57:00 07/02/2014 23:59:59 CLS Outpatient CASIE ARRIAGA DPM [id number] 05/27/2014 15:44:00 05/27/2014 23:59:59 CLS Outpatient NAHOMY BETH MD [id number] 05/14/2014 09:51:00 05/14/2014 23:59:59 CLS Outpatient CASIE ARRIAGA DPM [id number] 03/12/2014 09:45:00 03/12/2014 23:59:59 CLS Outpatient CASIE ARRIAGA DPM [id number] 03/04/2014 09:43:00 03/04/2014 23:59:59 CLS Outpatient NAHOMY BETH MD [id number] 01/01/2014 09:05:00 01/01/2014 23:59:59 CLS Outpatient NAIN HARO DO [id number] 01/01/2014 09:05:00 01/01/2014 23:59:59 CLS Outpatient NAIN HARO DO [id number] 10/29/2013 13:35:00 10/29/2013 23:59:59 CLS Outpatient NAHOMY BETH MD [id number] 08/27/2013 15:00:00 08/27/2013 23:59:59 CLS Outpatient NAHOMY BETH MD [id number] 07/30/2013 15:19:00 07/30/2013 23:59:59 CLS Outpatient NAHOMY BETH MD [id number] 03/02/2013 13:56:00 03/02/2013 23:59:59 CLS Outpatient NAHOMY BETH MD [id number] 09/23/2012 11:45:00 09/23/2012 23:59:59 CLS Outpatient NAHOMY BETH MD [id number] 05/20/2012 09:24:00 05/20/2012 23:59:59 [place] [id number] 04/15/2012 15:12:00 04/15/2012 23:59:59 CLS Outpatient HARO NAIN DOWELL [id number] 02/09/2013 07:55:00 Document Registration [id number] 02/05/2013 14:58:00 Document Registration [id number] 12/02/2012 09:33:00 Document Registration [id number] 12/02/2012 09:33:00 Document Registration [id number] 09/23/2012 11:45:00 Document Registration [id number] 01/17/2018 09:00:00 01/17/2018 23:59:59 CLS Outpatient NAHOMY BETH MD [facility] [id number] 12/17/2017 10:28:00 12/17/2017 23:59:59 CLS Outpatient KOREY BYERS MD [facility] RAD RENAL FAILURE [id number] 12/04/2017 16:02:00 12/04/2017 23:59:59 CLS Preadmit KOREY BYERS MD [facility] RAD RENAL FALURE [id number] 09/19/2017 04:45:00 09/19/2017 12:45:00 DIS Inpatient JIMMY SPAULDING MD [facility] 4TH UTI-SZ> 30 MINS, SUBTHERAPEUTIC DILANTIN LEVEL, [id number] 09/04/2017 10:08:00 09/04/2017 23:59:59 CLS Outpatient NAHOMY BETH MD [facility] RAD SCREENING [id number] 07/02/2017 06:41:00 07/02/2017 14:50:00 DIS Outpatient VICKI CARRERO FACCYORDAN FACP CCDS [facility] CATH AORT[place] [id number] 06/13/2017 07:02:00 06/13/2017 23:59:59 CLS Outpatient CRISTIANRCOIO OTERO ROBBY [facility] CARD R07.89 [id number] 06/12/2017 09:37:00 06/12/2017 23:59:59 CLS Outpatient EMIRROCIO ROBBY [facility] CARD R07.89 CHEST PAIN [id number] 06/07/2017 17:12:00 06/07/2017 23:59:59 CLS Outpatient NAHOMY BETH MD [facility] LABNPT [id number] 05/10/2017 13:20:00 05/10/2017 15:10:00 [facility] [id number] 04/18/2017 08:29:00 04/18/2017 23:59:59 CLS Outpatient NAHOMY BETH MD [facility] RAD M81.0 AGE RELATED OSTEOPOROSIS [id number] 04/07/2017 08:20:00 04/07/2017 23:59:59 CLS Outpatient NAHOMY BETH MD [facility] LABNPT [id number] 02/15/2017 07:26:00 02/15/2017 10:30:00 DIS Outpatient ALLISON BELLA MD [facility] ENDO RECTAL BLEEDING, ANEMIA , VENTRAL HERNIA [id number] 02/13/2017 08:20:00 02/13/2017 23:59:59 CLS Preadmit NAHOMY BETH MD [facility] RAD M81.0 [id number] 02/08/2017 05:55:00 02/08/2017 12:30:00 DIS Outpatient ALLISON BELLA MD [facility] PREOP RECTAL BLEEDING ANEMIA , VENTRAL HERNIA [id number] 12/03/2016 10:15:00 12/03/2016 23:59:59 CLS Outpatient KOREY BYERS MD [facility] RAD RENAL INSUFFICIENCY [id number] 09/14/2016 10:57:00 09/14/2016 23:59:59 CLS Outpatient NAHOMY BETH MD [facility] LABNPT I25.10, I25.810 [id number] 08/23/2016 11:47:00 08/23/2016 23:59:59 CLS Outpatient NAHOMY BETH MD [facility] RAD SCREENING [id number] 07/20/2016 00:09:00 07/20/2016 23:59:59 CLS Preadmit NAHOMY BTEH MD [facility] POOR DAVID ACCESS [id number] 05/16/2016 12:41:00 07/19/2016 00:01:00 DIS Outpatient NAHOMY BETH MD [facility] POOR DAVID ACCESS [id number] 04/06/2016 12:35:00 04/12/2016 00:01:00 DIS Outpatient NAHOMY BETH MD [facility] POOR DAVID ACCESS [id number] 12/30/2015 12:35:00 01/05/2016 00:01:00 DIS Outpatient NAHOMY BETH MD [facility] POOR DAVID ACCESS [id number] 11/17/2015 11:14:00 11/17/2015 23:59:59 CLS Outpatient KOREY BYERS MD [facility] RAD RENAL FAILURE [id number] 09/23/2015 12:46:00 09/29/2015 00:01:00 DIS Outpatient NAHOMY BETH MD [facility] PO[facility] DAVID ACCESS [id number] 09/02/2015 15:34:00 09/02/2015 19:28:00 DIS Emergency ALLISON THOMPSON MD [facility] ER L LEG PAIN [id number] 06/20/2015 12:42:00 06/23/2015 00:01:00 DIS Outpatient NAHOMY BETH MD [facility] ACCESS [id number] 06/03/2015 01:11:00 06/03/2015 02:20:00 DIS Emergency JEANETTE KENDRICK DO [facility] ER FALL-SWOLLEN ANKLE [id number] 04/21/2015 11:26:00 04/21/2015 23:59:59 CLS Outpatient NAHOMY BETH MD [facility] RAD ABD PAIN AND PELVIC [id number] 03/11/2015 12:33:00 03/23/2015 00:01:00 DIS Outpatient NAHOMY BETH MD [facility] PO[facility] DAVID ACCESS [id number] 02/25/2015 12:48:00 02/25/2015 23:59:59 CLS Outpatient ROCIO FIELD [facility] LAB HYPERLIPIDEMIA [id number] 02/11/2015 12:40:00 02/17/2015 00:01:00 DIS Outpatient NAHOMY BETH MD [facility] PO[facility] DAVID ACCESS [id number] 11/05/2014 11:39:00 11/11/2014 00:01:00 DIS Outpatient NAHOMY BETH MD [facility] PO[facility] DAVID ACCESS [id number] 07/09/2014 13:07:00 08/05/2014 00:01:00 DIS Outpatient NAHOMY BETH MD [facility] ACCESS [id number] 07/19/2014 08:00:00 07/19/2014 23:59:59 CLS Preadmit SATYA DPM, CASIE Q [facility] BILATERAL HAMMERTOE [id number] 07/13/2014 10:24:00 07/13/2014 23:59:59 CLS Outpatient SATYA DPM, CASIE Q [facility] PREOP BILATERAL HAMMERTOE [id number] 06/30/2014 11:00:00 06/30/2014 23:59:59 CLS Preadmit YORDAN COHEN MD, FACC, FACP CCDS [facility] CARD PALPITATIONS, HTN,CP [id number] 04/26/2014 07:08:00 06/29/2014 00:01:00 DIS Outpatient YORDAN COHEN MD, FACC, FACP CCDS [facility] CARD PALPITATIONS, HTN,CP [id number] 05/18/2014 09:04:00 05/18/2014 23:59:59 CLS Outpatient VICKI CARRERO FACC, ALI FACP CCDS [facility] CATH PALPITATIONS, DIZZINESS [id number] 05/13/2014 11:05:00 05/13/2014 23:59:59 CLS Outpatient VICKI CARRERO FACMariaelena, ALI FACP CCDS [facility] RAD CAROTID ARTERY STENOSIS [id number] 04/23/2014 13:06:00 04/29/2014 00:01:00 DIS Outpatient NAHOMY BETH MD [facility] ACCESS [id number] 04/26/2014 11:35:00 04/26/2014 23:59:59 CLS Outpatient VICKI CARRERO FACC, YORDAN FACLaz CCDS [facility] CARD PALPITATIONS, CP,CVA,DVT [id number] 02/26/2014 08:48:00 02/26/2014 23:59:59 CLS Outpatient NICK ONEILL MD [facility] RAD INCOMPLETE COLONOSCOPY [id number] 02/25/2014 07:13:00 02/25/2014 12:01:00 DIS Outpatient NICK ONEILL MD [facility] ANEMIA,DIARRHEA [id number] 02/24/2014 07:30:00 02/24/2014 23:59:59 CLS Outpatient NICK ONEILL MD [facility] PREOP ANEMIA [id number] 01/29/2014 12:56:00 01/29/2014 23:59:59 CLS Outpatient ROCIO FIELD [facility] LAB CVA,DVT [id number] 01/15/2014 12:34:00 01/21/2014 00:01:00 DIS Outpatient MAYELIN ETIENNE MD [facility] ACCESS [id number] 12/16/2013 07:16:00 12/16/2013 11:02:00 DIS Emergency KRISTY WALDRON MD [facility] ER UNRESPONSIVE [id number] 11/12/2013 13:11:00 11/12/2013 23:59:59 CLS Outpatient KOREY BYERS MD [facility] RAD RENAL INSUFFICIENCY [id number] 10/09/2013 12:57:00 10/21/2013 00:01:00 DIS Outpatient MAYELIN ETIENNE MD [facility] POOR DAVID ACCESS [id number] 07/24/2013 18:12:00 07/24/2013 22:39:00 DIS Emergency KRISTY WALDRON MD [facility] ER SEIZURE [id number] 07/03/2013 06:36:00 07/03/2013 23:59:59 CLS Outpatient NICK ONEILL MD [facility] POOR VENOUS ACCESS [id number] 06/29/2013 08:37:00 06/29/2013 23:59:59 CLS Outpatient NICK ONEILL MD [facility] PREOP POOR VENOUS ACCESS [id number] 05/11/2013 09:36:00 06/16/2013 00:01:00 DIS Outpatient MAYELIN ETIENNE MD [facility] POOR DAVID ACCESS [id number] 04/09/2013 10:02:00 04/09/2013 23:59:59 CLS Outpatient ROCIO FIELD [facility] RAD CAROTID ARTERIAL DISEASE,IV CONTRAST [id number] 03/18/2013 09:00:00 03/18/2013 23:59:59 CLS Outpatient NAHOMY BETH MD [facility] LAB HIGH RISK MEDICATION,CRF [id number] 12/11/2012 10:16:00 03/11/2013 00:01:00 DIS Outpatient MAYELIN ETIENNE MD [facility] POOR DAVID ACCESS [id number] 03/04/2013 05:55:00 03/06/2013 14:10:00 DIS Outpatient NICK ONEILL MD [facility] VENTRAL HERNIA/NO VENOUS ACCESS [id number] 02/27/2013 09:45:00 02/27/2013 23:59:59 CLS Outpatient VICKI CARRERO FACCYORDAN FACP CCDS [facility] RAD CVD [id number] 02/27/2013 09:01:00 02/27/2013 23:59:59 CLS Outpatient NINO CARRERO, NICK Gonzalez [facility] PREOP VENTRAL HERNIA/NO VENOUS ACCESS [id number] 02/06/2013 09:51:00 02/08/2013 16:10:00 DIS Inpatient NAHOMY BETH MD [facility] 4TH ANEMIA [id number] 02/03/2013 20:27:00 02/03/2013 23:24:00 DIS Emergency DEEPTI MARTINEZ MD [facility] ER INJ FROM FALL [id number] 01/31/2013 19:00:00 01/31/2013 22:08:00 DIS Emergency DEEPTI MARTINEZ MD [facility] ER FALL [id number] 01/09/2013 23:26:00 01/10/2013 11:46:00 DIS Inpatient NAHOMY BETH MD [facility] ICU CHEST PAIN [id number] 12/11/2012 09:43:00 12/11/2012 23:59:59 CLS Outpatient LUCIANA MARTINEZ [facility] LAB CAD [id number] 10/28/2012 08:31:00 10/28/2012 14:30:00 DIS Outpatient ARUN HERNANDEZ MD [facility] SDC IV ACCESS [id number] 10/22/2012 10:27:00 10/22/2012 23:59:59 CLS Outpatient ARUN HERNANDEZ MD [facility] PREOP IV ACCESS [id number] 06/03/2015 01:23:00 Document Registration [id number] 06/03/2015 01:22:00 Document Registration [id number] 06/03/2015 01:22:00 Document Registration [id number] 09/04/2012 09:02:00 Document Registration [id number] 08/14/2012 14:39:00 Document Registration [id number] 08/14/2012 14:25:00 Document Registration [id number] 06/05/2012 10:08:00 Document Registration [id number] 05/20/2012 09:35:00 Document Registration [id number] 03/24/2012 10:10:00 Document Registration [id number] 03/12/2012 13:12:00 Document Registration [id number] 03/06/2012 14:34:00 Document Registration [id number] 02/04/2012 12:57:00 Document Registration [id number] 10/11/2011 09:50:00 Document Registration [id number] 09/04/2011 10:49:00 Document Registration [id number] 08/01/2011 09:27:00 Document Registration [id number] 07/27/2011 06:06:00 Document Registration [id number] 07/26/2011 13:02:00 Document Registration [id number] 07/23/2011 05:35:00 Document Registration [id number] 07/20/2011 15:19:00 Document Registration [id number] 03/28/2011 12:44:00 Document Registration [id number] 12/06/2010 12:32:00 Document Registration [id number] 09/04/2010 11:27:00 Document Registration [id number] 08/29/2010 11:50:00 Document Registration [id number] 08/23/2010 11:11:00 Document Registration [id number] 08/16/2010 13:00:00 Document Registration [id number] 06/22/2010 13:00:00 Document Registration [id number] 05/17/2010 12:45:00 Document Registration [id number] 05/02/2010 11:11:00 Document Registration [id number] 03/09/2010 13:06:00 Document Registration [id number] 02/17/2010 14:05:00 Document Registration [id number] 01/10/2010 13:36:00 Document Registration [id number] 12/13/2009 09:59:00 Document Registration [id number] 05/20/2007 15:19:00 Document Registration [id number] 03/26/2015 05:36:16 ACT Document Registration
[2018-02-04 19:53] VITALS: BP 167/73
[2018-02-04] MEDS ORDERED: IBUPROFEN 600 MG (MOTRIN) TAB PO PRN (20:00)
[2018-02-05] VITALS: BP 125/60
[2018-02-05 04:00] VITALS: BP 119/58
[2018-02-05 06:15] LABS: BASOPHILS % (AUTO) 1 % (0-10); EOSINOPHILS # (AUTO) 0.1 10^3/uL (0.0-0.3); EOSINOPHILS % (AUTO) 2 % (0-10); HEMATOCRIT 32 % (35-52); HEMOGLOBIN 10.8 G/DL (11.5-16.0); LYMPHOCYTES # (AUTO) 0.9 X 10^3 (1.0-4.0); LYMPHOCYTES % (AUTO) 24 % (12-44); MEAN CORPUSCULAR HEMOGLOBIN 32 PG (25-34); MEAN CORPUSCULAR HGB CONC 33 G/DL (32-36); MEAN CORPUSCULAR VOLUME 95 FL (80-99); MEAN PLATELET VOLUME 9.7 FL (7.4-10.4); MONOCYTES # (AUTO) 0.6 X 10^3 (0.0-1.0); MONOCYTES % (AUTO) 14 % (0-12); NEUTROPHILS # (AUTO) 2.3 X 10^3 (1.8-7.8); NEUTROPHILS % (AUTO) 59 % (42-75); PLATELET COUNT 179 10^3/uL (130-400); RED CELL DISTRIBUTION WIDTH 14.5 % (10.0-14.5); WHITE BLOOD COUNT 3.9 10^3/uL (4.3-11.0)
[2018-02-05 06:32] LABS: ALANINE AMINOTRANSFERASE 11 U/L (0-55); ALBUMIN 3.6 GM/DL (3.2-4.5); ALKALINE PHOSPHATASE 98 U/L (40-136); BILIRUBIN,TOTAL 0.3 MG/DL (0.1-1.0); BUN/CREATININE RATIO 15; CALCIUM 8.6 MG/DL (8.5-10.1); CARBON DIOXIDE 19 MMOL/L (21-32); CHLORIDE 106 MMOL/L (98-107); CREATININE SERUM 0.84 MG/DL (0.60-1.30); GFR ESTIMATED > 60; GLUCOSE 87 MG/DL (70-105); POTASSIUM 3.6 MMOL/L (3.6-5.0); SODIUM 135 MMOL/L (135-145); TOTAL PROTEIN 6.4 GM/DL (6.4-8.2)
[2018-02-05 08:18] VITALS: BP 163/70
[2018-02-05] MEDS ORDERED: PHEN100C4 PO (09:45)
[2018-02-05] MEDS ORDERED: METO50TA15 PO (09:45)
[2018-02-05] MEDS ORDERED: DIPH25CA79 PO (11:21)
[2018-02-05] MEDS ORDERED: IRON150C8 PO (11:21)
[2018-02-05] MEDS ORDERED: TR1C15 TOP (11:21)
[2018-02-05] MEDS ORDERED: CICL6.6S5 TOP (11:21)
[2018-02-05] MEDS ORDERED: FAMO20TA3 PO (11:21)
[2018-02-05] MEDS ORDERED: HYDR28.3 TP (11:21)
[2018-02-05] MEDS ORDERED: GABA-490 PO (11:21)
[2018-02-05] MEDS ORDERED: BUTA1CAP41 PO (11:21)
[2018-02-05] MEDS ORDERED: IBUP-2055 PO (11:21)
[2018-02-05] MEDS ORDERED: MINE3.5O30 OU (11:21)
[2018-02-05] MEDS ORDERED: FLUT16SP22 NS (11:21)
[2018-02-05] MEDS ORDERED: CARB15DR OU (11:21)
[2018-02-05] MEDS ORDERED: CLOB50SO TOP (11:21)
[2018-02-05] MEDS ORDERED: TOPI100T11 PO (11:21)
[2018-02-05] MEDS ORDERED: KETO120S5 TOP (11:21)
[2018-02-05] MEDS ORDERED: FENT1PAT10 TD (11:21)
[2018-02-05] MEDS ORDERED: TR1C15 TP (11:21)
[2018-02-05] MEDS ORDERED: POLY17PO6 PO (11:21)
[2018-02-05] MEDS ORDERED: NITR1PAT57 TD (11:21)
[2018-02-05] MEDS ORDERED: MELA5CAP PO (11:21)
[2018-02-05] MEDS ORDERED: LAMO100T PO (11:21)
[2018-02-05] MEDS ORDERED: ROSU10TA27 PO (11:21)
[2018-02-05] MEDS ORDERED: GUAI100L36 PO (11:39)
[2018-02-05] MEDS ORDERED: ACET325T38 PO (11:39)
[2018-02-05] MEDS ORDERED: WARF1TAB82 PO ×2 (11:39)
[2018-02-05] MEDS ORDERED: CALC-250 PO (11:39)
[2018-02-05] MEDS ORDERED: FENT-65 TD (11:58)
[2018-02-05] MEDS ORDERED: CEPH500C PO (11:58)
--- NOTE | 2018-02-05 12:00 | Discharge Instructions ---
Discharge [facility] Discharge Medications New, Converted or Re-Newed RX: RX on Chart New Medications: Cephalexin (Cephalexin) 500 Mg Capsule 500 MG PO BID, #14 CAP Changed Medications: Fentanyl (Fentanyl Patch 62.5 MCG) 1 Each Patch.td72 62.5 MCG TD Q72H, #10 PATCH 0 Refills (Changed from: Fentanyl (Fentanyl Patch 75MCG) 1 Each Patch.td72 75 Mcg TD Q72H) Continued Medications: Acetaminophen (Tylenol) 325 Mg Tablet 650 MG PO Q4H PRN for HEADACHE, TAB Bisacodyl (Bisacodyl) 10 Mg Supp.rect 10 MG RC DAILY PRN for CONSTIPATION-4TH LINE, SUPP.RECT Butalb/Acetaminophen/Caffeine (Gftfvy-Btvfwsie-Mzei 50-300-40) 1 Each Capsule 1 CAP PO Q6H PRN for HEADACHE, CAP Carboxymethylcellulose Sodium (Refresh Tears) 15 Ml Drops 1 DROP OU QID, DROPS Cholecalciferol (Vitamin D) 5,000 Unit Capsule 5000 UNIT PO UD, CAP TAKE 1 CAPSULE TWO TIMES DAILY EVERY 7 DAYS Ciclopirox (Ciclopirox) 6.6 Ml Solution TOP HS, EA APPLY TO FINGERNAILS Citalopram Hydrobromide (Celexa) 10 Mg Tablet 10 MG PO DAILY, TAB Clobetasol Propionate (Clobetasol Propionate) 50 Ml Solution TOP UD, EA APPLY TO SCALP TWO TIMES A DAY EVERY MON, E, SAT, JAVON, FRI Clorazepate Dipotassium (Clorazepate Dipotassium) 3.75 Mg Tablet 3.75 MG PO BID, TAB Cyclosporine (Restasis) 1 Each Droperette 1 DROP OU BID, EA Famotidine (Acid Global President (FAMOTIDINE)) 20 Mg Tablet 20 MG PO HS, TAB Fexofenadine HCl (Nissa Allergy) 180 Mg Tablet 180 MG PO DAILY, TAB Fluticasone Propionate (Fluticasone Propionate) 16 Gm [place].susp 2 SPRAYS NS DAILY, EA Gabapentin (Gabapentin) 400 Mg Capsule 400 MG PO HS, CAP Guaifenesin (Tussin) 100 Mg/5 Ml Liquid 10 ML PO Q6H PRN for COUGH, EA Hydrocortisone (Hydrocortisone) 28.35 Gm Cream..g. TP DAILY PRN for DRY SKIN, TUBE 2.5% Ibuprofen (Ibuprofen) 200 Mg Tablet 400 MG PO Q8H PRN for HEADACHE, TAB Iron Polysaccharide Complex (Polysaccharide Iron 150) 150 Mg Capsule 150 MG PO DAILY, CAP Ketoconazole (Nizoral) 120 Ml Shampoo TOP MoTh, EA Lamotrigine (Lamotrigine) 100 Mg Tablet 100 MG PO BID, TAB Melatonin (Melatonin) 5 Mg Capsule 5 MG PO HS, CAP Metoprolol Tartrate (Metoprolol Tartrate) 50 Mg Tablet 50 MG PO BID, TAB HOLD IF PULSE <50 CALL PHYSICIAN Mineral Oil/Petrolatum,White (Artificial Tears Eye Oint) 3.5 Gm Oint...g. OU HS, TUBE Nitroglycerin (Nitroglycerin 0.2mg/HR Patch) 1 Each Patch.td24 1 PATCH TD DAILY, PATCH Phenytoin Sodium Extended (Dilantin) 100 Mg Capsule 100 MG PO BID, CAP Polyethylene Glycol 3350 (Miralax) 17 Gm Powd.pack 17 GM PO BID, EACH Rosuvastatin Calcium (Rosuvastatin Calcium) 10 Mg Tablet 10 MG PO HS, TAB Sodium Bicarbonate (Sodium Bicarbonate) 650 Mg Tablet 650 MG PO 1600, TAB Topiramate (Topiramate) 100 Mg Tablet 100 MG PO BID, TAB Triamcinolone Acet (Triamcinolone Acetonide 0.1% Cream) 15 Gm Cr TOP BID, EA Triamcinolone Acet (Triamcinolone Acetonide 0.1% Cream) 15 Gm Cr TP BID PRN for ITCHING, TUBE Warfarin Sodium (Warfarin Sodium) 1 Mg Tablet 1 MG PO Ellison, TAB Warfarin Sodium (Warfarin Sodium) 1 Mg Tablet 1.5 MG PO MoTuWeThFrSa, TAB Discontinued Medications: Diphenhydramine HCl (Benadryl) 25 Mg Capsule 50 MG PO HS PRN for ITCHING, CAP Patient Instructions Goal/Follow Up Appt: Follow up with Dr. Beht on Feb 11 at 3 pm at [facility]. Patient Instructions: We decreased your fentanyl dose slightly due to concern for over sedation with all of your medications and the episode of unresponsiveness. Activity & Diet Discharge Diet: Regular Diet Activity as Tolerated: Yes Copy Copies To 1: NAHOMY BETH MD,JIMMY Brooks MD Feb 05, 2018 12:00
[2018-02-05 12:49] VITALS: BP 144/72
--- NOTE | 2018-02-05 12:58 | Short Stay Summary ---
History of Present Illness History of Present Illness Reason for visit/HPI 67 yo female admitted to the hospital after being found slumped over in her wheelchair at the [facility] and unresponsive. Per EMS she had low heart rate and pinpoint pupils. She was given narcan and her heart rate improved and she became more alert although did not answer questions. She was found to have possible UTI with nitrite positive urine, but does have a diverting urostomy. She also has a seizure disorder. This morning she states she is feeling well and denies concerns except that she feels they have not had the right equipment for her ostomy at the nursing facility recently. She does not recall what happened before being found unresponsive, but denies chest pain, shortness of breath, dizziness, palpitations, abdominal pain, diarrhea. Date of Admission Feb 04, 2018 at 3:42 pm Date of Discharge Feb 05, 2018 Time Seen by Provider: 10:10 Attending Physician Jimmy Spaulding MD Admitting Physician Nahomy Beth MD Consult Allergies and Home Medications Allergies Coded Allergies: Fish Containing Products (Unverified Allergy, Unknown, 09/19/17) FROM UNCODED ALLERGIES Penicillins (Verified Allergy, Unknown, 03/18/06) Sulfa (Sulfonamide Antibiotics) (Verified Allergy, Unknown, 03/18/06) acetaminophen (Verified Allergy, Unknown, 03/18/06) amitriptyline (Verified Allergy, Unknown, 03/18/06) aspirin (Verified Allergy, Unknown, 03/18/06) caramiphen (Verified Allergy, Unknown, 03/18/06) carbamazepine (Verified Allergy, Unknown, 03/18/06) clarithromycin (Verified Allergy, Unknown, 03/18/06) codeine (Verified Allergy, Unknown, 03/18/06) coffee (Coffea arabica) (Unverified Allergy, Unknown, 09/19/17) FROM UNCODED ALLERGIES diazepam (Verified Allergy, Unknown, 03/18/06) diphenhydramine (Verified Allergy, Unknown, 03/18/06) doxycycline (Verified Allergy, Unknown, 03/18/06) egg (Verified Allergy, Unknown, 03/18/06) fish oil (Verified Allergy, Unknown, 03/18/06) flavoxate (Verified Allergy, Unknown, 03/18/06) hydrocodone (Verified Allergy, Unknown, 03/18/06) hydroxyzine (Verified Allergy, Unknown, 03/18/06) hyoscyamine (Verified Allergy, Unknown, 03/18/06) imipramine (Verified Allergy, Unknown, 03/18/06) levofloxacin (Verified Allergy, Unknown, 03/18/06) liver extract (Verified Allergy, Unknown, 03/18/06) lorazepam (Verified Allergy, Unknown, 03/18/06) milk (Verified Allergy, Unknown, 03/18/06) nitrofurantoin (Verified Allergy, Unknown, 03/18/06) oxybutynin (Verified Allergy, Unknown, 03/18/06) pentazocine (Verified Allergy, Unknown, 03/18/06) phenazopyridine (Verified Allergy, Unknown, 03/18/06) phenylpropanolamine (Verified Allergy, Unknown, 03/18/06) procaine (Verified Allergy, Unknown, 03/18/06) promethazine (Verified Allergy, Unknown, 03/18/06) propoxyphene (Verified Allergy, Unknown, 03/18/06) pseudoephedrine (Verified Allergy, Unknown, 03/18/06) spinach (Unverified Allergy, Unknown, 09/19/17) FROM UNCODED ALLERGIES tetracycline (Verified Allergy, Unknown, 03/18/06) tramadol (Verified Allergy, Unknown, 03/18/06) zinc acetate (Verified Allergy, Unknown, 03/18/06) Uncoded Allergies: ANITHISTAMINES (Allergy, Unknown, 03/18/06) Home Medications Acetaminophen 325 Mg Tablet, 650 MG PO Q4H PRN for HEADACHE, (Reported) Bisacodyl 10 Mg Supp.rect, 10 MG RC DAILY PRN for CONSTIPATION-4TH LINE, ( Reported) Butalb/Acetaminophen/Caffeine 1 Each Capsule, 1 CAP PO Q6H PRN for HEADACHE, ( Reported) Carboxymethylcellulose Sodium 15 Ml Drops, 1 DROP OU QID, (Reported) Cephalexin 500 Mg Capsule, 500 MG PO BID Prescribed by: JIMMY SPAULDING on 02/05/18 1158 Cholecalciferol 5,000 Unit Capsule, 5,000 UNIT PO UD, (Reported) TAKE 1 CAPSULE TWO TIMES DAILY EVERY 7 DAYS Ciclopirox 6.6 Ml Solution, TOP HS, (Reported) APPLY TO FINGERNAILS Citalopram Hydrobromide 10 Mg Tablet, 10 MG PO DAILY, (Reported) Clobetasol Propionate 50 Ml Solution, TOP UD, (Reported) APPLY TO SCALP TWO TIMES A DAY EVERY SAT, E, SAT, JAVON, SAT Clorazepate Dipotassium 3.75 Mg Tablet, 3.75 MG PO BID, (Reported) Cyclosporine 1 Each Droperette, 1 DROP OU BID, (Reported) Famotidine 20 Mg Tablet, 20 MG PO HS, (Reported) Fentanyl 1 Each Patch.td72, 62.5 MCG TD Q72H Prescribed by: JIMMY SPAULDING on 02/05/18 1158 Fexofenadine HCl 180 Mg Tablet, 180 MG PO DAILY, (Reported) Fluticasone Propionate 16 Gm [place].susp, 2 SPRAYS NS DAILY, (Reported) Gabapentin 400 Mg Capsule, 400 MG PO HS, (Reported) Guaifenesin 100 Mg/5 Ml Liquid, 10 ML PO Q6H PRN for COUGH, (Reported) Hydrocortisone 28.35 Gm Cream..g., TP DAILY PRN for DRY SKIN, (Reported) 2.5% Ibuprofen 200 Mg Tablet, 400 MG PO Q8H PRN for HEADACHE, (Reported) Iron Polysaccharide Complex 150 Mg Capsule, 150 MG PO DAILY, (Reported) Ketoconazole 120 Ml Shampoo, TOP MoTh, (Reported) Lamotrigine 100 Mg Tablet, 100 MG PO BID, (Reported) Melatonin 5 Mg Capsule, 5 MG PO HS, (Reported) Metoprolol Tartrate 50 Mg Tablet, 50 MG PO BID, (Reported) HOLD IF PULSE <50 CALL PHYSICIAN Mineral Oil/Petrolatum,White 3.5 Gm Oint...g., OU HS, (Reported) Nitroglycerin 1 Each Patch.td24, 1 PATCH TD DAILY, (Reported) Phenytoin Sodium Extended 100 Mg Capsule, 100 MG PO BID, (Reported) Polyethylene Glycol 3350 17 Gm Powd.pack, 17 GM PO BID, (Reported) Rosuvastatin Calcium 10 Mg Tablet, 10 MG PO HS, (Reported) Sodium Bicarbonate 650 Mg Tablet, 650 MG PO 1600, (Reported) Topiramate 100 Mg Tablet, 100 MG PO BID, (Reported) Triamcinolone Acet 15 Gm Cr, TOP BID, (Reported) Triamcinolone Acet 15 Gm Cr, TP BID PRN for ITCHING, (Reported) Warfarin Sodium 1 Mg Tablet, 1 MG PO Ellison, (Reported) Warfarin Sodium 1 Mg Tablet, 1.5 MG PO MoTuWeThFrSa, (Reported) Patient Home Medication List Home Medication List Reviewed: Yes Past Dfhauhi-Jkgeiq-Dpfiss Hx Patient Social History Alcohol Use: Denies Use Recreational Drug Use: No Smoking Status: Never a Smoker Physical Abuse Screen: No Sexual Abuse: No Recent Foreign Travel: No Contact w/other who traveled: No Recent Hopitalizations: No Recent Infectious Disease Expo: No Immunizations Up To Date Tetanus Booster (TDap): More than 5yrs Date of Pneumonia Vaccine: May 02, 2017 Date of Influenza Vaccine: Apr 02, 2017 Seasonal Allergies Seasonal Allergies: Yes Surgeries Yes (ABD, REMOVAL OF BLOOD CLOT ON BRAIN, SINUS, D&C, HERNIA, PORTS, UROSTOMY) Abdominal, Appendectomy, Bladder Surgery, Gallbladder, Hysterectomy, Orthopedic , Urinary Diversion Respiratory No Cardiovascular Yes (MITRAL VALVE, Scaring on Aortic Valve Secondary to Rhuematic Fever, HF) Coronary Artery Disease, Deep Vein Thrombosis, High Cholesterol, Hypertension, Rheumatic Fever, Valvular Heart Disease (aortic regurgitation) Neurological Yes Seizure Disorder, Stroke Reproductive System Hx Reproductive Disorders: No Sexually Transmitted Disease: No HIV/AIDS: No Female Reproductive Disorders: Denies Genitourinary Yes (bladder cancer s/p resection) Bladder Infection Gastrointestinal Yes Gastroesophageal Reflux, Chronic Constipation Musculoskeletal Yes (WEAKNESS LEFT SIDE DUE TO STROKE/OA/OSTEOPOROSIS, R LEG FX,R KNEE SURGERY) Osteoporosis, Arthritis, Fractures Endocrine History of Endocrine Disorders: No HEENT HEENT Disorders: Cataract Loss of Vision: Bilateral Hearing Impairment: Denies Cancer Yes Bladder Psychosocial History of Psychiatric Problem: Yes Behavioral Health Disorders: Anxiety Integumentary History of Skin or Integumenta: No Blood Transfusions 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 0.6oz. 48.782533uc; 25.6 BMI Method:Estimated General Appearance: No Apparent Distress, WD/WN Respiratory: Lungs Clear, Normal Breath Sounds Cardiovascular: Regular Rate, Rhythm, No Murmur Gastrointestinal: Normal Bowel Sounds, Non Tender, Soft Extremity: No Pedal Edema Neurologic/Psychiatric: Alert, Normal Mood/Affect Skin: Normal Color, Warm/Dry Clinical Quality Measures Admission Status Admission Status: Observation DVT/VTE Risk/Contraindication: Risk Factor Score Per Nursin RFS Level Per Nursing on Admit: 4+=Very High Short Stay Diagnosis Discharge Diagnosis-Short Stay Admission Diagnosis: Altered mental status Bradycardia Possible UTI Final Discharge Diagnosis: Altered mental status of unclear etiology- multiple contributing factors- opiates, sedating medications, possibly post-ictal. On d/c decreased fentanyl patch from 75 mcg to 62.5 mcg and stopped diphenhydramine 50 mg from home meds. Bradycardia- improved, is on metoprolol, already written to hold if low heart rate Possible UTI- sent with cephalexin for possible UTI, culture pending Conclusion Labs Laboratory Tests 02/04/18 13:25: Urine Color YELLOW, Urine Clarity CLEAR, Urine pH 8, Urine Specific [place] 1.010L, Urine Protein 2+H, Urine Glucose (UA) NEGATIVE, Urine Ketones NEGATIVE, Urine Nitrite POSITIVEH, Urine Bilirubin NEGATIVE, Urine Urobilinogen NORMAL, Urine Leukocyte Esterase 2+H, Urine RBC (Auto) 1+H, Urine RBC RARE, Urine WBC 5- 10H, Urine Crystals PRESENTH, Urine Triple Phosphate Crystals LARGEH, Urine Amorphous Sediment MOD TOMMY PHOSPHATEH, Urine Bacteria FEWH, Urine Casts NONE, Urine Mucus NEGATIVE, Urine Culture Indicated YES 02/04/18 13:45: White Blood Count 4.9, Red Blood Count 3.82L, Hemoglobin 12.0, Hematocrit 36, Mean Corpuscular Volume 95, Mean Corpuscular Hemoglobin 31, Mean Corpuscular Hemoglobin Concent 33, Red Cell Distribution Width 14.2, Platelet Count 175, Mean Platelet Volume 10.6H, Neutrophils (%) (Auto) 65, Lymphocytes (%) (Auto) 22 , Monocytes (%) (Auto) 11, Eosinophils (%) (Auto) 2, Basophils (%) (Auto) 0, Neutrophils # (Auto) 3.2, Lymphocytes # (Auto) 1.1, Monocytes # (Auto) 0.5, Eosinophils # (Auto) 0.1, Basophils # (Auto) 0.0, Prothrombin Time 15.8H, INR Comment 1.3, Activated Partial Thromboplast Time 29, D-Dimer 0.39, Sodium Level 134L, Potassium Level 3.6, Chloride Level 105, Carbon Dioxide Level 22, Anion Gap 7, Blood Urea Nitrogen 14, Creatinine 0.84, Estimat Glomerular Filtration Rate > 60, BUN/Creatinine Ratio 17, Glucose Level 113H, Lactic Acid Level 0.76, Calcium Level 9.5, Corrected Calcium 9.3, Total Bilirubin 0.4, Aspartate Amino Transf (AST/SGOT) 18, Alanine Aminotransferase (ALT/SGPT) 15, Alkaline Phosphatase 112, Troponin I < 0.30, Total Protein 7.7, Albumin 4.2 02/05/18 05:53: White Blood Count 3.9L, Red Blood Count 3.40L, Hemoglobin 10.8L, Hematocrit 32L , Mean Corpuscular Volume 95, Mean Corpuscular Hemoglobin 32, Mean Corpuscular Hemoglobin Concent 33, Red Cell Distribution Width 14.5, Platelet Count 179, Mean Platelet Volume 9.7, Neutrophils (%) (Auto) 59, Lymphocytes (%) (Auto) 24, Monocytes (%) (Auto) 14H, Eosinophils (%) (Auto) 2, Basophils (%) (Auto) 1, Neutrophils # (Auto) 2.3, Lymphocytes # (Auto) 0.9L, Monocytes # (Auto) 0.6, Eosinophils # (Auto) 0.1, Basophils # (Auto) 0.0, Sodium Level 135, Potassium Level 3.6, Chloride Level 106, Carbon Dioxide Level 19L, Anion Gap 10, Blood Urea Nitrogen 13, Creatinine 0.84, Estimat Glomerular Filtration Rate > 60, BUN/ Creatinine Ratio 15, Glucose Level 87, Calcium Level 8.6, Corrected Calcium 8.9 , Total Bilirubin 0.3, Aspartate Amino Transf (AST/SGOT) 14, Alanine Aminotransferase (ALT/SGPT) 11, Alkaline Phosphatase 98, Total Protein 6.4, Albumin 3.6 Microbiology 02/04/18 Urine Culture - Preliminary, [facility]ed [facility] Conclusion/Plan See discharge diagnosis Copy Copies To 1: NAHOMY BETH MD,JIMMY Brooks MD Feb 05, 2018 12:57 pm
[2018-02-05 13:15] VITALS: BP 144/72
[2018-02-05 16:06] VITALS: BP 144/72
== END 2018-02-05 11:59 ==
LOC: EDUNIT# 12:59 → ER 13:00 → UNDOADMOB 15:42 → 4TH 15:42 → UNDODISOB 02-05 14:30
PROVIDERS: ADMIT Family Medicine; ATTEND Family Medicine
DX: R41.82 Altered mental status, unspecified (principal); R00.1 Bradycardia, unspecified; R82.99 Other abnormal findings in urine; I25.10 Atherosclerotic heart disease of native coronary artery without angina pectoris; I10 Essential (primary) hypertension; E78.00 Pure hypercholesterolemia, unspecified; G40.909 Epilepsy, unspecified, not intractable, without status epilepticus; K21.9 Gastro-esophageal reflux disease without esophagitis; Z66 Do not resuscitate; K59.09 Other constipation; M81.0 Age-related osteoporosis without current pathological fracture; D50.9 Iron deficiency anemia, unspecified; D51.0 Vitamin B12 deficiency anemia due to intrinsic factor deficiency; I69.354 Hemiplegia and hemiparesis following cerebral infarction affecting left non-dominant side; Z79.01 Long term (current) use of anticoagulants; Z85.51 Personal history of malignant neoplasm of bladder; Z93.6 Other artificial openings of urinary tract status
CPT/HCPCS: 36415; 70450; 71045; 80053; 81000; 83605; 84484; 85025; 85379; 85610; 85730; 87040; 87077; 87088; 93005; 93041; G0378

== ENCOUNTER → 2018-03-10 | Outpatient (CLI) | payer MEDICARE, MEDICAID ==
[~2018-03-10] MED LIST changes: +ACET325T38 PO; +CALC-250 PO; +CEPH500C PO; +CICL6.6S5 TOP; +CLOB50SO TOP; +DIPH25CA79 PO; +FAMO20TA3 PO; +FENT-65 TD; +FENT1PAT10 TD; +FLUT16SP22 NS; +GUAI100L36 PO; +HYDR28.3 TP; +IBUP-2055 PO; +IRON150C8 PO; +KETO120S5 TOP; +MELA5CAP PO; +METO50TA15 PO; +MINE3.5O30 OU; +NITR1PAT57 TD; +PHEN100C4 PO; +POLY17PO6 PO; +ROSU10TA27 PO; +TOPI100T11 PO; +TR1C15 TOP; +TR1C15 TP
--- NOTE | 2018-03-10 15:04 | Diagnostic Imaging Report ---
PROCEDURE: CT abdomen and pelvis without contrast. TECHNIQUE: Multiple contiguous axial images were obtained through the abdomen and pelvis without the use of intravenous contrast. INDICATION: Hiatal hernia. COMPARISON: Comparison is made with prior CT from 04/21/2015. FINDINGS: Lung bases are clear. Trace left pleural fluid is noted. No discrete liver mass is identified. Gallbladder surgically absent. The extrahepatic bile duct remains prominent but similar to prior exam. The pancreas and spleen are unremarkable. No adrenal mass is detected. Kidneys are without evidence of calculi or hydronephrosis. Aorta is calcified but nonaneurysmal. There is a large midline ventral hernia containing small and large bowel loops, similar to prior exam. Patient also appears to have an ostomy in the right lower quadrant. No definite obstruction is seen. No bowel wall thickening or pneumatosis is identified. There is no ascites. Multiple surgical clips the pelvis are seen. IMPRESSION: Large midline ventral hernia containing small and large bowel loops, similar to prior CT from 04/21/2015. No definite bowel obstruction is identified. No acute features seen. Dictated by: Dictated on workstation # [id number]
== END ==
LOC: RAD 12:40
PROVIDERS: ATTEND Surgery
DX: K43.9 Ventral hernia without obstruction or gangrene (principal); K43.2 Incisional hernia without obstruction or gangrene
CPT/HCPCS: 74176

== ENCOUNTER 2018-07-05 14:34 | Observation (INO) | payer MEDICARE, MEDICAID ==
[~2018-07-05] VITALS: Ht 160 cm; Wt 49.9 kg
--- OUTSIDE RECORDS SUMMARY | 2018-07-05 14:42 | XMS REPORT ---
Author Author OMKAR SERRANO Organization [facility] Address [address] [place] [address] Care Team Providers Care Department [employer] Name Role Phone OMKAR SERRANO Unavailable PROBLEMS Type Condition ICD9-CM Code [id number] Code Onset Dates Condition Status SNOMED Code Problem Anemia, unspecified type D64.9 Active 507485791 Problem Personality disorder F60.9 Active 95248730 Problem Factitious disorder imposed on self, recurrent episode F68.10 Active 99705045 Problem Ventral hernia without obstruction or gangrene K43.9 Active 872755437 Problem Allergic state, subsequent encounter T78.40XD Active 865406854 Problem Anxiety F41.9 Active 64727699 Problem Age-related osteoporosis without current pathological fracture M81.0 Active 49873633 Problem Unspecified psychosis not due to a substance or known physiological condition F29 Active 13368957 Problem Iron deficiency anemia, unspecified iron deficiency anemia type D50.9 Active 19547023 Problem History of CVA with residual deficit I69.30 Active 990660191 Problem Seizure disorder G40.909 Active 362386392 Problem Perennial allergic rhinitis, unspecified allergic rhinitis trigger J30.89 Active 360261722 Problem Chronic kidney disease, unspecified stage N18.9 Active 230936922 Problem Back pain M54.9 Active 779692844 Problem Gastroesophageal reflux disease without esophagitis K21.9 Active 675740389 Problem Insomnia, unspecified type G47.00 Active 887377077 Problem History of colon polyps Z86.010 Active 013259247 ALLERGIES No Information ENCOUNTERS Encounter Location Date Diagnosis [facility] [address] [facility] [id number] [address] Jun, [facility] [address] [facility] [id number], [place] [address] Apr, Age-related osteoporosis without current pathological fracture M81.0 [facility] [address], [place] [address] Apr, Unspecified psychosis not due to a substance or known physiological condition F29 ; Personality disorder F60.9 and Factitious disorder imposed on self, recurrent episode F68.10 [facility] [address] [place] [id number] Apr, Personal history of other diseases of the digestive system Z87.19 and Other specified postprocedural states Z98.890 [facility] [id number] [place] [address] 41132- 8161 Apr, Back pain M54.9 [facility] [id number] [place] [address] 62020- 5698 Apr, Age-related osteoporosis without current pathological fracture M81.0 [facility] [id number] [place] [address] 20594- 5966 Apr, [facility] [address] [place] [id number] Apr, Other specified postprocedural states Z98.890 [facility] [id number] [place] [address] 04329- 9073 Mar, Back pain M54.9 [facility] [id number] [place] [address] 56371- 8258 Mar, [facility] [id number] [place] [address] 06330- 6775 Mar, [facility] [id number] [place] [address] 86638- 8759 Mar, [facility] [id number] [place] [address] 91611- 7856 Mar, Back pain M54.9 [facility] [id number] [place] [address] 74295- 5822 Mar, Back pain M54.9 and Encounter for immunization Z23 [facility] [address] [place] [address] 17 Feb, 2018 [facility] [id number] [place] [address] 65748- 8790 Feb, Unspecified psychosis not due to a substance or known physiological condition F29 ; Personality disorder F60.9 and Factitious disorder imposed on self, recurrent episode F68.10 [facility] [id number] [place] [address] 04654- 4566 05 Feb, [address] [facility] [id number] [place] [address] 93492- 9226 Jan, Unspecified psychosis not due to a substance or known physiological condition F29 ; Personality disorder F60.9 and Factitious disorder imposed on self, recurrent episode F68.10 [facility] [id number] [place] [address] 09431- 5247 Jan, [facility] [id number] [place] [address] 13816- 3961 Jan, Back pain M54.9 and Seizure disorder G40.909 [facility] [id number] [place] [address] 69289- 3630 Jan, Back pain M54.9 [facility] [address] [place] [address] 54168- 6448 Jan, Back pain M54.9 [facility] [id number] [place] [address] 01913- 6199 Jan, [facility] [address] [place] [address] 01268- 5877 Jan, Unspecified psychosis not due to a substance or known physiological condition F29 ; Personality disorder F60.9 and Factitious disorder imposed on self, recurrent episode F68.10 [facility] [address] [address] 6[address] Dec, Back pain M54.9 ; Seizure disorder G40.909 ; Ventral hernia without obstruction or gangrene K43.9 and History of CVA with residual deficit I69.30 [facility] [id number] [place] [address] 46785- 2375 Dec, Unspecified psychosis not due to a substance or known physiological condition F29 ; Personality disorder F60.9 and Factitious disorder imposed on self, recurrent episode F68.10 [facility] [id number] [place] [address] 25947- 8629 Dec, [facility] [id number] [place] [address] 39532- 5288 Dec, Back pain M54.9 [facility] [address] 44470- 2262 Dec, Factitious disorder imposed on self, recurrent episode F68.10 ; Personality disorder F60.9 ; Insomnia, unspecified type G47.00 and Anxiety F41.9 [facility] [id number] [place] [address] 38856- 4300 Nov, Unspecified psychosis not due to a substance or known physiological condition F29 ; Personality disorder F60.9 and Factitious disorder imposed on self, recurrent episode F68.10 [facility] [id number] [place] [address] 69650- 1716 Nov, Back pain M54.9 [facility] [id number] [place] [address] 65286- 8708 Nov, Unspecified psychosis not due to a substance or known physiological condition F29 ; Personality disorder F60.9 and Factitious disorder imposed on self, recurrent episode F68.10 [facility] [id number] [place] [address] 10792- 7158 October, [facility] [id number] [place] [address] 78516- 9398 October, [facility] [id number] [place] [address] 65217- 4218 October, Unspecified psychosis not due to a substance or known physiological condition F29 ; Personality disorder F60.9 and Factitious disorder imposed on self, recurrent episode F68.10 [facility] [address] [place] [address] 63131- 5583 October, Back pain M54.9 [facility] [address] [place] [address] 99862- 6215 October, Seizure disorder G40.909 ; Back pain M54.9 and Allergic state, subsequent encounter T78.40XD [facility] [id number] [place] [address] 17652- 0457 October, [facility] [id number] [place] [address] 64828- 8117 Sep, Back pain M54.9 [facility] [id number] [place] [address] 51850- 9431 Sep, Unspecified psychosis not due to a substance or known physiological condition F29 ; Personality disorder F60.9 and Factitious disorder imposed on self, recurrent episode F68.10 [facility] [address] [place] [address] 49017- 5150 Sep, [facility] [id number] [place] [address] 01585- 5448 Sep, [facility] [address] [place] [address] 53964- 1650 Sep, [facility] [id number] [place] [address] 61439- 6455 Sep, [facility] [address], [place] [address] 2954 Aug, [facility] [id number] [place] [address] 42951- 5307 Aug, Back pain M54.9 [facility] [address] [place] [address] 98292- 1487 15 Mar, 2018 Factitious disorder imposed on self, recurrent episode F68.10 ; Personality disorder F60.9 ; Insomnia, unspecified type G47.[address] [facility] [address] [address] 9869 Aug, Back pain M54.9 ; Iron deficiency anemia, unspecified iron deficiency anemia type D50.9 ; Chronic kidney disease, unspecified stage N18.9 and Breast cancer screening Z12.31 [facility] [id number] [place] [address] [id number] Jul, Back pain M54.9 [facility] [id number] [place] [address] [id number] Jul, [facility] [id number] [place] [address] [id number] Jul, [facility] [id number] [place] [address] [id number] Jun, Back pain M54.9 [facility] [id number] [id number] Jun, [facility] [id number] [place] [address] [id number] Jun, Back pain M54.9 [facility] [id number] [address] Jun, Back pain M54.9 ; Seizure disorder G40.909 and Age-related osteoporosis without current pathological fracture M81.0 [facility] [id number] [id number] May, [facility] [address] [address]- 1547 May, Back pain M54.9 [facility] [address] [address] 0943 Apr, Back pain M54.9 ; Encounter for immunization Z23 ; Gastroesophageal reflux disease without esophagitis K21.9 ; Age-related osteoporosis without current pathological fracture M81.0 and Chronic pruritus L29.9 [facility] [address] [place] [address] 36805- 5105 16 Apr, 2017 History of CVA with residual deficit I69.30 [facility] [address] [place] [address] 35940- 4953 16 Apr, 2017 Factitious disorder imposed on self, recurrent episode F68.10 and Personality disorder F60.9 [facility] [id number] [place] [address] [id number] Apr, Back pain M54.9 [facility] [id number] [place] [address] 09625- 4121 Mar, Factitious disorder imposed on self, recurrent episode F68.10 [facility] [id number] [place] [address] 63578- 4459 Mar, [facility] [id number] [place] [address] [id number] Mar, [facility] [id number] [place] [address] [id number] Mar, Back pain M54.9 [facility] [id number] [place] [address] 54074- 0984 05 Mar, 2017 Back pain M54.9 ; Seizure disorder G40.909 and Age-related osteoporosis without current pathological fracture M81.0 [facility] [address] [place] [address] 78157- 6550 19 Feb, 2017 History of CVA with residual deficit I69.30 [facility] [address] [place] [address] 34062- 1439 19 Feb, 2017 Factitious disorder imposed on self, recurrent episode F68.10 and Personality disorder F60.9 [facility] [address] [address]- 6242 15 Feb, [address] [facility] [id number] [place] [address] 60401- 3157 Feb, [facility] [id number] [address]- 4497 Jan, [facility] [address] [place] [id number] Jan, Age- related osteoporosis without current pathological fracture M81.0 and Allergic state, subsequent encounter T78.40XD [facility] [id number] [address]- 9539 Jan, Factitious disorder imposed on self, recurrent episode F68.10 and Personality disorder F60.9 [facility] [id number] [address]- 5942 Dec, Back pain M54.9 [facility] [id number] [address]- 9927 Dec, Personality disorder F60.9 and Factitious disorder imposed on self, recurrent episode F68.10 [facility] [id number] [id number] Dec, Back pain M54.9 [facility] [id number] [place] [address] [id number] Dec, [facility] [id number] [id number] Dec, [facility] [id number] [address]- 0534 Dec, [facility] [address], [place] [address]- 7880 Nov, [facility] [id number] [address]- 6775 Nov, Back pain M54.9 ; Anemia, unspecified type D64.9 and History of colon polyps Z86.010 [facility] [id number] [address]- 0018 Nov, Back pain M54.9 [facility] [id number] [id number] October, Back pain M54.[address] [id number] October, Back pain M54.9 and Gastroesophageal reflux disease without esophagitis K21.9 [facility] [address] [id number] [id number] Sep, [facility] [address] [address] 3297 Sep, [facility] [id number] [address] 9976 Sep, [facility] [address], [place] [address]- 6590 Sep, [facility] [address], [place] [address]- 8223 Sep, [facility] [address], [place] [address]- 9476 Sep, Seizure disorder G40.909 [facility] [id number] [address]- 4536 Sep, Back pain M54.9 [facility] [id number] [address]- 4086 Sep, [facility] [address], [place] [address]- 2636 Aug, Back pain M54.9 [facility] [id number] [address] 2546 29 Aug, 2016 Seizure disorder G40.909 [facility] [address] [id number] [id number] Aug, [facility] [address] [id number] [id number] 16 Aug, 2016 Back pain M54.9 [facility] [address] [id number] [id number] Aug, Back pain M54.9 [facility] [id number] [id number] Aug, Back pain M54.9 [facility] [address] [place] [id number] Jul, Weakness R53.1 [facility] [address] [place] [address] 06589- 9386 Jul, Seizure disorder G40.909 [facility] [id number] [place] [address] 74846- 7020 Jul, [facility] [id number] [place] [address] 55346- 8563 Jul, Breast cancer screening Z12.39 [facility] [id number] [place] [address] 99656- 0819 Jul, [facility] [id number] [place] [address] 57909- 9837 Jul, [facility] [address] [place] [address] 67819- 9719 Jul, [facility] [address] [place] [address] 39564- 1001 Jul, Seizure disorder G40.909 ; Fatigue, unspecified type R53.83 ; Perennial allergic rhinitis, unspecified allergic rhinitis trigger J30.89 and Chronic kidney disease, unspecified stage N18.9 [facility] [address], [place] [address]- 0669 Jul, [facility] [id number] [place] [address] 15300- 1579 Jul, Seizure disorder G40.909 [facility] [address], [place] [address]- 7583 Jun, [facility] [address] [place] [address] 56908- 5140 Jun, [facility] [address] [place] [id number] Jun, Perennial allergic rhinitis, unspecified allergic rhinitis trigger J30.89 [facility] [id number] [place] [address] [id number] Jun, [facility] [address] [place] [address] 58670- 0765 Jun, Seizure disorder G40.909 [facility] [id number] [place] [address] [id number] Jun, [facility] [id number] [place] [address] [id number] May, [facility] [address] [place] [address] 08249- 4206 May, [facility] [address] [place] [address] 16291- 7775 May, [facility] [address] [place] [address] 48129- 5482 May, [facility] [address] [place] [address] 83649- 5333 May, History of CVA with residual deficit I69.30 [facility] [address] [place] [address] 06207- 3064 May, [facility] [address] [place] [address] 50636- 7584 May, [facility] [address] [place] [address] 89563- 3765 May, [facility] [address] [place] [address] 47951- 6415 May, Seizure disorder G40.909 [facility] [address], [place] [address]- 7624 May, [facility] [address] [place] [address] May, Back pain M54.9 and Seizure disorder G40.909 [facility] [address] [facility] [id number], [place] [address]- 3675 Apr, [facility] [id number] [place] [address] 98377- 6696 Apr, Back pain M54.9 [facility] [id number] [place] [address] 71910- 2183 Mar, [facility] [address] [place] [address] Mar, Insomnia, unspecified type G47.00 [facility] [address] [facility] [id number] [place] [address] 12836- 5076 Mar, [facility] [id number] [place] [address] 73784- 4221 Feb, [facility] [id number] [place] [address] 97579- 3850 Feb, [facility] [id number] [place] [address] 50390- 6289 Feb, [facility] [id number] [place] [address] 24978- 8941 Jan, [facility] [address] [place] [address] 13989- 0636 Jan, [facility] [address] [place] [address] Jan, Seizure disorder G40.909 and Back pain M54.9 [facility] [address] [facility] [id number] [place] [address] 25559- 5642 Dec, [facility] [address] [facility] [id number] [place] [address] 39484- 5635 Dec, [facility] [id number] [place] [address] 75977- 5997 Dec, [facility] [id number] [place] [address] 75963- 3782 Nov, [facility] [id number] [place] [address] 85537- 3026 Nov, [facility] [id number] [place] [address] 27047- 7776 Nov, Back pain M54.9 [facility] [id number] [place] [address] 19395- 6345 October, [facility] [id number] [place] [address] 44334- 7936 October, Back pain M54.9 [facility] [id number] [place] [address] 08722- 8153 October, Seizure disorder G40.[address] [facility] [id number] [place] [address] 46482- 5062 Sep, History of CVA with residual deficit I69.30 [facility] [id number] [place] [address] 08346- 2541 Sep, [facility] [id number] [place] [address] 99622- 8521 Sep, [facility] [id number] [place] [address] 41335- 8396 Sep, Back pain M54.9 [facility] [id number] [place] [address] 29308- 8093 Sep, Seizure disorder G40.909 [facility] [address] [place] [address] 45922- 1176 Aug, Back pain M54.9 [facility] [id number] [place] [address] 89876- 2416 Aug, Seizure disorder G40.909 [facility] [id number] [place] [address] 61934- 2036 Aug, Back pain M54.9 [facility] [address] [place] [address] 37315- 0759 14 Aug, 2015 Heart failure, unspecified I50.9 [facility] [id number] [place] [address] 19965- 7954 14 Aug, 2015 Medication monitoring encounter Z51.81 [facility] [id number] [place] [address] 15948- 3806 15 Jul, 2015 [facility] [id number] [place] [address] 14878- 3555 09 Jul, 2015 Seizure disorder G40.909 [facility] [id number] [place] [address] 22444- 6624 05 Jul, [address] [facility] [id number] [place] [address] [id number]- 2935 Jun, [facility] [id number] [place] [address] 61301- 3699 Jun, [facility] [id number] [place] [address] 20545- 6523 Jun, Mental status change R41.82 ; History of CVA with residual deficit I69.30 ; Back pain M54.9 and Seizure disorder G40.909 [facility] [id number] [place] [address] 14597- 7768 Jun, [facility] [id number] [place] [address] 84163- 9917 May, [facility] [id number] [place] [address] 90221- 1793 Apr, [facility] [id number] [place] [address] 58922- 6205 Apr, Medication monitoring encounter Z51.81 [facility] [id number] [place] [address] 30776- 3816 Mar, Vomiting R11.10 [facility] [place] [facility] [address] [id number] [place] [address] Mar, [facility] [address] [id number] [place] [address] 2294 18 Feb, 2015 [facility] [place] [facility] [address] [id number] [place] [address] 28[address] Feb, UTI (urinary tract infection) 599.0 [facility] [address] [id number] [place] [address] 4985 Jan, [facility] [address] [id number] [place] [address] 96[address] Jan, [facility] [address] [id number] [place] [address] 49[address] Jan, [facility] [address] [address] [id number] [place] [address] Dec, [facility] [address] [id number] [place] [address] 8985 Dec, [facility] [place] [facility] [address] [id number] [place] [address] Dec, [facility] [address] [id number] [place] [address] 8076 Dec, [facility] [address] [id number] [place] [address] 0881 Nov, UNKNOWN Nov, [facility] [place] [facility] [address] [id number] [place] [address] 2546 October, [facility] [place] [facility] [address] [id number] [place] [address] 5326 14 Sep, 2014 [facility] [place] [facility] [address] [id number] [place] [address] 0245 Sep, [facility] [place] [facility] [address] [id number] [place] [address] 2546 Aug, [facility] [place] [facility] [address] [id number] [place] [address]- 6825 Aug, [facility] [place] [facility] [address] [id number] [place] [address] 3796 Jul, [facility] [place] [facility] [address] [id number] [place] [address] 2546 Jul, 2014 [facility] [place] [facility] [address] [id number] [place] [address]- 2026 Jul, 2014 [facility] [place] [facility] [address] [id number] [place] [address] 8334 Jul, [facility] [place] [facility] [address] [id number] [place] [address] 3936 Jul, [facility] [place] [facility] [address] [id number] [place] [address] 9389 Jun, [facility] [place] [facility] [address] [id number] [place] [address]- 9701 Jun, [facility] [place] [facility] [address] [id number] [place] [address]- 4395 Jun, [facility] [place] [facility] [address] [id number] [place] [address]- 6238 Jun, [facility] [place] [facility] [address] [id number] [place] [address]- 4338 Jun, [facility] [place] [facility] [address] [id number] [place] [address]- 1079 Jun, [facility] [place] [facility] [address] [id number] [place] [address]- 7709 Jun, [facility] [place] [facility] [address] [id number] [place] [address]- 3500 Jun, [facility] [place] [facility] [address] [id number] [place] [address] 2546 Jun, [facility] [place] [facility] [address] [id number] [place] [address]- 9040 Jun, [facility] [place] [facility] [address] [id number] [place] [address]- 4997 Jun, [facility] [place] [facility] [address] [id number] [place] [address]- 0137 Jun, [facility] [place] [facility] [address] [id number] [place] [address]- 3978 Jun, [facility] [place] [facility] [address] [id number] [place] [address]- 7810 Jun, [facility] [place] [facility] [address] [id number] [place] [address]- 2285 Jun, [facility] [place] [facility] [address] [id number] [place] [address]- 6602 Jun, [facility] [place] [facility] [address] [id number] [place] [address]- 2569 Jun, [facility] [place] [facility] [address] [id number] [place] [address]- 5804 Jun, [facility] [place] [facility] [address] [id number] [place] [address]- 3182 May, [facility] [place] [facility] [address] [id number] [place] [address]- 9538 30 May, 2014 [facility] [place] [facility] [address] [id number] [place] [address]- 2410 30 May, 2014 [facility] [place] [facility] [address] [id number] [place] [address]- 1417 30 May, 2014 [facility] [place] [facility] [address] [id number] [place] [address]- 3087 19 May, 2014 [facility] [place] [facility] [address] [id number] [place] [address]- 0572 16 May, 2014 [facility] [place] [facility] [address] [id number] [place] [address]- 8975 May, [facility] [place] [facility] [address] [id number] [place] [address]- 8929 May, [facility] [address] [id number] [place] [address]- 7932 May, [facility] [address] [place] [id number] May, [facility] [place] [facility] [address] [id number] [place] [address]- 6960 May, [facility] [place] [facility] [address] [id number] [place] [address]- 7265 May, [facility] [place] [facility] [address] [id number] [place] [address]- 7240 May, [facility] [place] [facility] [address] [id number] [place] [address]- 0150 Apr, [facility] [place] [facility] [address] [id number] [place] [address]- 7822 Apr, [facility] [place] [facility] [address] [id number] [place] [address]- 3351 Apr, [facility] [place] [facility] [address] [id number] [place] [address]- 8215 Apr, [facility] [place] [facility] [address] [id number] [place] [address]- 5586 Apr, [facility] [place] [facility] [address] [id number] [place] [address]- 1463 Apr, [facility] [place] [facility] [address] [id number] [place] [address]- 4272 Mar, [facility] [place] [facility] [address] [id number] [place] [address] 1970 Mar, [facility] [place] [facility] [address] [id number] [place] [address]- 2083 Mar, [facility] [place] [facility] [address] [id number] [place] [address]- 4828 Mar, [facility] [place] [facility] [address] [id number] [place] [address]- 1674 Mar, [facility] [address] [id number] [place] [address]- 5695 Mar, [facility] [address] [id number] [place] [address]- 8510 24 Feb, 2014 [facility] [address] [id number] [place] [address]- 9584 24 Feb, 2014 [facility] [address] [id number] [place] [address] 7609 Feb, [facility] [address] [id number] [place] [address] 5480 Feb, [facility] [address] [id number] [place] [address] 0051 Feb, [facility] [address] [id number] [place] [address]- 5210 Feb, [facility] [address] [id number] [place] [address]- 8643 Feb, [facility] [address] [id number] [place] [address]- 2901 Feb, [facility] [address] [id number] [place] [address]- 4657 Feb, [facility] [address] [id number] [place] [address]- 2544 Feb, [facility] [address] [id number] Feb, [facility] [address] [id number] [place] [address]- 5029 Feb, [facility] [address] [id number] [place] [address]- 1488 Jan, [facility] [address] [id number] [place] [address]- 6461 Jan, [facility] [place] [facility] [address] [id number] [place] [address]- 9304 Dec, 2013 [facility] [place] [facility] [address] [id number] [place] [address]- 8894 Dec, [facility] [place] [facility] [address] [id number] [place] [address]- 6701 Dec, [facility] [place] [facility] [address] [id number] [place] [address]- 0709 Dec, [facility] [place] [facility] [address] [id number] [place] [address]- 9968 Dec, [facility] [place] [facility] [address] [id number] [place] [address]- 4719 Dec, [facility] [place] [facility] [address] [id number] [place] [address]- 6487 Dec, [facility] [place] [facility] [address] [id number] [place] [address]- 5439 Dec, [facility] [place] [facility] [address] [id number] [place] [address]- 2529 Dec, [facility] [place] [facility] [address] [id number] [place] [address]- 5984 Dec, [facility] [place] [facility] [address] [id number] [place] [address]- 6735 Nov, [facility] [place] [facility] [address] [id number] [place] [address]- 1879 Nov, [facility] [place] [facility] [address] [id number] [place] [address]- 6176 Nov, [facility] [place] [facility] [address] [id number] [place] [address]- 7029 Nov, [facility] [place] [facility] [address] [id number] [place] [address]- 9910 Nov, [facility] [place] [facility] [address] [id number] [place] [address]- 9877 Nov, [facility] [place] [facility] [address] [id number] [place] [address]- 0311 Nov, [facility] [place] [facility] [address] [id number] [place] [address]- 8221 Nov, [facility] [place] [facility] [address] [id number] [place] [address]- 6262 Nov, [facility] [place] [facility] [address] [id number] [place] [address]- 0987 Nov, [facility] [place] [facility] [address] [id number] [place] [address]- 8922 Nov, [facility] [place] [facility] [address] [id number] [place] [address]- 1377 Nov, [facility] [place] [facility] [address] [id number] [place] [address]- 4600 Nov, [facility] [place] [facility] [address] [id number] [place] [address]- 0115 Nov, [facility] [place] [facility] [address] [id number] [place] [address]- 3055 October, [facility] [place] [facility] [address] [id number] [place] [address]- 7585 October, [facility] [place] [facility] [address] [id number] [place] [address]- 1370 October, [facility] [place] [facility] [address] [id number] [place] [address]- 4800 October, [facility] [place] [facility] [address] [id number] [place] [address]- 1586 October, [facility] [place] [facility] [address] [id number] [place] [address]- 7650 October, [facility] [place] [facility] [address] [id number] [place] [address]- 3623 October, [facility] [place] [facility] [address] [id number] [place] [address]- 8718 October, [facility] [address] [id number] [place] [address]- 8911 October, [facility] [address] [id number] [place] [address]- 1514 October, [facility] [address] [id number] [place] [address]- 0221 Sep, [facility] [address] [id number] [place] [address]- 7869 Sep, [facility] [address] [id number] [place] [address]- 3265 Sep, [facility] [address] [id number] [place] [address]- 8804 Sep, [facility] [address] [id number] [place] [address]- 7738 Sep, [facility] [address] [id number] [place] [address]- 7975 Sep, [facility] [address] [id number] [place] [address]- 8113 Sep, [facility] [address] [id number] [place] [address]- 6170 Sep, [facility] [place] [facility] [address] [id number] [place] [address]- 5021 Sep, [facility] [address] [id number] [place] [address]- 5547 Sep, [facility] [place] [facility] [address] [id number] [place] [address]- 6580 Aug, [facility] [place] [facility] [address] [id number] [place] [address]- 1131 Aug, [facility] [place] [facility] [address] [id number] [place] [address]- 2753 Aug, [facility] [place] [facility] [address] [id number] [place] [address]- 6137 10 Aug, 2013 [facility] [place] [facility] [address] [id number] [place] [address]- 4351 Aug, [facility] [place] [facility] [address] [id number] [place] [address]- 1486 Aug, [facility] [place] [facility] [address] [id number] [place] [address]- 6714 Aug, [facility] [place] [facility] [address] [id number] [place] [address]- 2781 Aug, [facility] [place] [facility] [address] [id number] [place] [address]- 8981 Aug, [facility] [place] [facility] [address] [id number] [place] [address]- 7231 Jul, [facility] [place] [facility] [address] [id number] [place] [address]- 6583 Jul, [facility] [place] [facility] [address] [id number] [place] [address]- 9848 Jul, [facility] [place] [facility] [address] [facility] [id number] [place] [address]- 6075 Jul, [facility] [place] [facility] [address] [id number] [place] [address]- 7674 Jul, [facility] [place] [facility] [address] [id number] [place] [address]- 9428 Jul, [facility] [place] [facility] [address] [id number] [place] [address]- 0024 Jul, [facility] [place] [facility] [address] [id number] [place] [address]- 3500 Jul, [facility] [place] [facility] [address] [facility] [id number] [place] [address]- 2038 Jul, [facility] [place] [facility] [address] [id number] [place] [address]- 9150 17 Jul, 2013 [facility] [place] [facility] [address] [id number] [place] [address]- 1112 Jul, [facility] [place] [facility] [address] [id number] [place] [address] Jul, [facility] [place] [facility] [address] [id number] [place] [address]- 1466 Jul, [facility] [place] [facility] [address] [id number] [place] [address]- 8032 Jul, [facility] [place] [facility] [address] [id number] [place] [address]- 3835 Jul, [facility] [place] [facility] [address] [id number] [place] [address]- 0971 Jul, [facility] [place] [facility] [address] [id number] [place] [address]- 9620 Jun, [facility] [place] [facility] [address] [id number] [place] [address]- 6701 Jun, [facility] [place] [facility] [address] [id number] [place] [address]- 4703 Jun, [facility] [place] [facility] [address] [id number] [place] [address]- 3929 Jun, [facility] [place] [facility] [address] [id number] [place] [address]- 5546 Jun, [facility] [place] [facility] [address] [id number] [place] [address]- 5268 Jun, [facility] [place] [facility] [address] [id number] [place] [address]- 2247 May, [facility] [place] [facility] [address] [id number] [place] [address]- 6558 May, [facility] [place] [facility] [address] [id number], [place] [address]- 5351 May, [facility] [place] [facility] [address] [id number] [place] [address]- 0572 May, [facility] [place] [facility] [address] [id number], [place] [address]- 2939 Apr, [facility] [place] [facility] [address] [id number], [place] [address]- 6307 Apr, [facility] [place] [facility] [address] [id number], [place] [address]- 8747 Apr, [facility] [place] [facility] [address] [id number] [place] [address]- 1818 Apr, [facility] [place] [facility] [address] [id number], [place] [address]- 3932 Apr, [facility] [place] [facility] [address] [id number], [place] [address]- 4419 Apr, [facility] [place] [facility] [address] [id number], [place] [address]- 7424 Apr, [facility] [place] [facility] [address] [id number], [place] [address]- 6834 Apr, [facility] [place] [facility] [address] [id number], [place] [address]- 8178 Apr, [facility] [place] [facility] [address] [id number], [place] [address]- 1661 Apr, [facility] [place] [facility] [address] [id number], [place] [address]- 3335 Apr, [facility] [place] [facility] [address] [id number], [place] [address]- 4426 Apr, [facility] [place] [facility] [address] [id number], [place] [address]- 8588 Mar, [facility] [place] [facility] [address] [id number], [place] [address]- 0238 Mar, [facility] [place] [facility] [address] [id number] [place] [address]- 9375 16 Mar, 2012 [facility] [address] [id number] [place] [address]- 5582 16 Mar, 2013 [facility] [place] [facility] [address] [id number] [place] [address]- 2546 15 Mar, 2013 [facility] [address] [id number] [place] [address]- 1767 15 Mar, 2013 [facility] [place] [facility] [address] [id number] [place] [address] 2542 27 Feb, 2012 [facility] [address] [id number] [place] [address]- 8244 25 Feb, 2013 [facility] [address] [id number] [place] [address]- 2775 25 Feb, 2012 [facility] [place] [facility] [address] [id number] [place] [address]- 2543 23 Feb, 2012 [facility] [address] [id number] [place] [address]- 1869 17 Feb, 2013 [facility] [place] [facility] [address] [id number] [place] [address]- 5165 10 Feb, 2013 [facility] [address] [id number] [place] [address]- 2548 04 Feb, 2013 [facility] [place] [facility] [address] [id number] [place] [address] 2540 30 Jan, 2013 [facility] [place] [facility] [address] [id number] [place] [address]- 2545 20 Jan, 2013 [facility] [place] [facility] [address] [id number] [place] [address]- 9538 15 Jan, 2013 [facility] [place] [facility] [address] [id number] [place] [address]- 2540 14 Jan, 2013 [facility] [place] [facility] [address] [id number] [place] [address]- 8313 Jan, [facility] [address] [id number] [place] [address]- 9178 Jan, [facility] [place] [facility] [address] [id number] [place] [address]- 0406 Jan, [facility] [place] [facility] [address] [id number] [place] [address]- 2671 Dec, [facility] [place] [facility] [address] [id number] [place] [address]- 3790 Dec, [facility] [place] [facility] [address] [id number] [place] [address]- 4160 Dec, [facility] [place] [facility] [address] [id number] [place] [address]- 4683 Dec, [facility] [place] [facility] [address] [id number] [place] [address]- 1302 Dec, [facility] [place] [facility] [address] [id number] [place] [address]- 0097 Dec, [facility] [place] [facility] [address] [id number] [place] [address]- 0560 Nov, [facility] [place] [facility] [address] [id number] [place] [address]- 6669 Nov, [facility] [place] [facility] [address] [id number] [place] [address]- 3977 Nov, [facility] [place] [facility] [address] [id number] [place] [address]- 7273 Nov, [facility] [place] [facility] [address] [id number] [place] [address]- 9488 October, [facility] [place] [facility] [address] [id number] [place] [address]- 0946 October, [facility] [place] [facility] [address] [id number] [place] [address]- 4885 October, [facility] [place] [facility] [address] [id number], [place] [address]- 4205 October, [facility] [address] [id number] [place] [address]- 8208 30 Sep, 2012 [facility] [address] [id number] [place] [address] Sep, [facility] [address] [id number] [place] [address] 16 Sep, 2012 [facility] [address] [id number] [place] [address] Sep, [facility] [address] [id number] [place] [address] Sep, [facility] [address] [id number] [place] [address] Sep, [facility] [address] [id number] [place] [address] Sep, [facility] [address] [id number] [place] [address] Sep, [facility] [address] [id number] [place] [address] Aug, [facility] [address] [facility] [id number] [place] [address] 118[address] Aug, [facility] [address] [id number] [place] [address] 05 Aug, 2012 [facility] [address] [id number] [place] [address] 18 Jul, 2012 [facility] [place] [facility] [address] [id number] [place] [address] 08 Jul, 2012 [facility] [place] [facility] [address] [id number] [place] [address] 07 Jul, 2012 [facility] [address] [facility] [id number][place] [address] 06 Jul, 2012 [facility] [address] [id number] [place] [address] Jul, [facility] [place] [facility] [address] [id number] [place] [address] Jun, [facility] [place] [facility] [address] [id number] [place] [address] Jun, [facility] [address] [id number] [place] [address] 1247 Jun, [facility] [address] [id number] [place] [address] May, [facility] [address] [id number] [place] [address] May, [facility] [address] [id number] [place] [address] May, [facility] [address] [id number] [place] [address] 1390 May, [facility] [place] [facility] [address] [id number] [place] [address] 6[address] May, [facility] [address] [id number] [place] [address] 3074 May, [facility] [place] [facility] [address] [id number] [place] [address] 7028 May, [facility] [place] [facility] [address] [id number] [place] [address]34 Apr, [facility] [place] [facility] [address] [id number] [place] [address] 85[address] Apr, [facility] [place] [facility] [address] [id number] [place] [address] 1395 Apr, [facility] [place] [facility] [address] [id number] [place] [address] Apr, [facility] [place] [facility] [address] [id number] [place] [address] 6[address] Apr, [facility] [place] [facility] [address] [id number] [place] [address] 3614 Apr, [facility] [place] [facility] [address] [id number] [place] [address] 4[address] Apr, [facility] [place] [facility] [address] [id number] [place] [address] 0081 Apr, [facility] [place] [facility] [address] [id number] [place] [address] 4[address] Apr, [facility] [place] [facility] [address] [id number] [place] [address] 49[address] Apr, [facility] [place] [facility] [address] [id number] [place] [address]- 5[address] Apr, [facility] [place] [facility] [address] [id number] [place] [address]148 Mar, [facility] [place] [facility] [address] [id number] [place] [address] 26[address] Mar, [facility] [place] [facility] [address] [id number] [place] [address] Mar, [facility] [place] [facility] [address] [id number] [place] [address]- 5[address] Mar, [facility] [place] [facility] [address] [id number], [place] [address] Mar, [facility] [place] [facility] [address] [id number], [place] [address] Mar, [facility] [place] [facility] [address] [id number] [place] [address] 9741 Mar, [facility] [place] [facility] [address] [id number], [place] [address] Mar, [facility] [place] [facility] [address] [id number] [place] [address]- 4028 16 Mar, 2012 [facility] [place] [facility] [address] [id number] [place] [address]- 4059 16 Mar, 2012 [facility] [place] [facility] [address] [id number] [place] [address] 7556 04 Mar, 2012 [facility] [place] [facility] [address] [id number] [place] [address]- [address]76 2011 [facility] [place] [facility] [address] [id number] [place] [address]- 6926 27 Sep, 2011 [facility] [place] [facility] [address] [id number] [place] [address]- 4795 27 Feb, 2011 [facility] [place] [facility] [address] [id number] [place] [address]- 1081 26 Feb, 2011 [facility] [place] [facility] [address] [id number] [place] [address]- 3607 24 Feb, 2011 [facility] [place] [facility] [address] [id number] [place] [address]- 7824 19 Feb, 2011 [facility] [address] [id number] [place] [address]- 3077 18 Feb, 2012 [facility] [place] [facility] [address] [id number] [place] [address] 6119 18 Feb, 2012 [facility] [address] [id number] [place] [address]- 0826 18 Feb, 2012 [facility] [place] [facility] [address] [id number] [place] [address] 25[address] Jan, [facility] [place] [facility] [address] [id number] [place] [address] 2542 Jan, [facility] [place] [facility] [address] [id number] [place] [address] 8480 Jan, [facility] [place] [facility] [address] [id number] [place] [address]- 9732 Jan, [facility] [place] [facility] [address] [id number] [place] [address]- 6418 Dec, [facility] [place] [facility] [address] [id number] [place] [address]- 8968 Dec, [facility] [place] [facility] [address] [id number] [place] [address]- 6311 Dec, [facility] [place] [facility] [address] [id number] [place] [address]- 5418 Dec, [facility] [place] [facility] [address] [id number] [place] [address]- 9996 Dec, [facility] [place] [facility] [address] [id number] [place] [address]- 9747 Dec, [facility] [place] [facility] [address] [id number] [place] [address]- 6811 Dec, [facility] [place] [facility] [address] [id number] [place] [address]- 3702 Dec, [facility] [place] [facility] [address] [id number] [place] [address]- 67[address] Dec, [facility] [place] [facility] [address] [id number] [place] [address] Dec, [facility] [place] [facility] [address] [id number] [place] [address] Dec, [facility] [place] [facility] [address] [id number] [place] [address] Dec, [facility] [place] [facility] [address] [id number] [place] [address] Dec, [facility] [place] [facility] [address] [id number] [place] [address] Dec, [facility] [place] [facility] [address] [id number] [place] [address] Nov, [facility] [place] [facility] [address] [id number] [place] [address] Nov, [facility] [place] [facility] [address] [id number] [place] [address] Nov, [facility] [address] [id number] [place] [address] Nov, [facility] [place] [facility] [address] [id number] [place] [address] Nov, [facility] [address] [facility] [id number] [place] [address] Nov, [facility] [address] [id number] [place] [address] October, [facility] [address] [id number] [place] [address] October, [facility] [address] [id number] [place] [address] October, [facility] [address] [id number] [place] [address] October, [facility] [address] [id number] [place] [address] Sep, [facility] [address] [id number] [place] [address]97 17 Sep, 2011 [facility] [address] [facility] [id number] [place] [address] 13 Sep, 2011 [facility] [address] [id number] [place] [address] Sep, [facility] [place] [facility] [address] [id number] [place] [address] Sep, [facility] [place] [facility] [address] [id number] [place] [address] Aug, [facility] [place] [facility] [address] [id number] [place] [address] Aug, [facility] [place] [facility] [address] [facility] [id number] [place] [address]69 Aug, [facility] [place] [facility] [address] [id number] [place] [address] Aug, [facility] [address] [id number] [place] [address] Aug, [facility] [address] [id number] [place] [address] Aug, [facility] [address] [id number] [place] [address] Aug, [facility] [address] [id number] [place] [address] Jul, [facility] [address] [facility] [id number] [place] [address] Jul, [facility] [address] [facility] [id number] [place] [address] 8836 Jul, [facility] [address] [facility] [id number] [place] [address] Jul, [facility] [address] [facility] [id number] [place] [address] Jun, [address] [id number] Jun, [facility] [address] [facility] [id number], [place] [address] Jun, [facility] [address] [facility] [id number], [place] [address] Jun, [facility] [address] [facility] [id number], [place] [address] Jun, [facility] [address] [facility] [id number] [place] [address] 2846 Jun, [facility] [address] [facility] [id number] [place] [address] Jun, [facility] [address] [facility] [id number] [place] [address] 3516 Jun, [facility] [place] [facility] [address] [id number] [place] [address] 83[address] May, [facility] [place] [facility] [address] [id number] [place] [address] 8725 May, [facility] [place] [facility] [address] [id number] [place] [address] May, [facility] [place] [facility] [address] [id number] [place] [address] 7[address] May, [facility] [place] [facility] [address] [id number] [place] [address] 6767 May, [facility] [place] [facility] [address] [id number] [place] [address] May, [facility] [place] [facility] [address] [id number] [place] [address] 38[address] May, [facility] [place] [facility] [address] [id number], [place] [address]- 8660 Apr, [facility] [place] [facility] [address] [id number] [place] [address] 2382 Apr, [facility] [place] [facility] [address] [id number], [place] [address] Apr, [facility] [place] [facility] [address] [id number], [place] [address] 24[address] Mar, [facility] [place] [facility] [address] [id number], [place] [address] Mar, [facility] [place] [facility] [address] [id number], [place] [address] 1809 14 Mar, 2011 [facility] [place] [facility] [address] [id number], [place] [address]- [address] Mar, [facility] [place] [facility] [address] [id number], [place] [address]- 4069 10 Mar, 2011 [facility] [place] [facility] [address] [id number], [place] [address] 10 Mar, 2011 [facility] [address] [id number] [place] [address]- 2377 10 Mar, 2011 [facility] [place] [facility] [address] [id number] [place] [address]- 5073 11 Jan, 2011 [facility] [address] [facility] [id number] [place] [address]- 8086 27 May, 2010 [facility] [place] [facility] [address] [id number] [place] [address]- 3027 21 May, 2010 [facility] [id number] [place] [address], [place] [address]- 2408 13 May, 2010 [facility] [place] [facility] [address] [id number] [place] [address]- 4827 May, [facility] [address] [facility] [id number] [place] [address]- 7110 May, [facility] [place] [facility] [address] [id number] [place] [address]- 2165 06 May, 2010 [facility] [place] [facility] [address] [id number] [place] [address] 395[address] 29 Apr, 2010 [facility] [place] [facility] [address] [facility] [id number] [place] [address]- 9398 26 Apr, 2010 [facility] [place] [facility] [address] [id number], [place] [address] Apr, [facility] [place] [facility] [address] [id number], [place] [address]- 2545 18 Apr, 2010 [facility] [place] [facility] [address] [id number], [place] [address]- 2391 15 Apr, 2010 [facility] [place] [facility] [address] [facility] [id number], [place] [address]- 8005 12 Apr, 2010 [facility] [place] [facility] [address] [facility] [id number], [place] [address]- 8130 12 Apr, 2010 [facility] [place] [facility] [id number], [place] [address] Apr, [facility] [id number] [address] 264[address] Apr, [facility] [id number] [address] 9485 Apr, [facility] [id number] [address] Mar, [facility] [id number] [address]143 Mar, [facility] [id number] [address] Mar, [facility] [id number] [address] Mar, [facility] [id number] [address] 0865 Mar, [facility] [id number], [place] [address] Dec, [facility] [id number], [place] [address] 2405 Nov, IMMUNIZATIONS No Known Immunizations SOCIAL HISTORY Never Assessed REASON FOR VISIT f/u PLAN OF CARE Activity Details Follow Up 1 Week Reason: VITAL SIGNS MEDICATIONS Unknown Medications RESULTS No Results PROCEDURES Procedure Date Ordered Result Body Site [facility] VISIT MENTAL HEALTH ESTAB PT May 23, 2018 Psychotherapy, patient and family, 45 minutes, established patient May 23, 2018 INSTRUCTIONS MEDICATIONS ADMINISTERED No Known Medications MEDICAL [...] surgery and skin graft, cholecysectomy Hospitalization History [facility]2016 [facility]/2018
--- OUTSIDE RECORDS SUMMARY | 2018-07-05 14:43 | XMS REPORT ---
Author Author NAHOMY BETH Organization [facility] Address [address] [place] [address] Care Team Providers Care Systems Eng Name Role Phone NAHOMY BETH Unavailable PROBLEMS Type Condition ICD9-CM Code RTA60-GT Code Onset Dates Condition Status SNOMED Code Problem Anemia, unspecified type D64.9 Active 052758345 Problem Personality disorder F60.9 Active 55666943 Problem Factitious disorder imposed on self, recurrent episode F68.10 Active 08018726 Problem Ventral hernia without obstruction or gangrene K43.9 Active 053323191 Problem Allergic state, subsequent encounter T78.40XD Active 815202116 Problem Anxiety F41.9 Active 53688796 Problem Age-related osteoporosis without current pathological fracture M81.0 Active 71988305 Problem Unspecified psychosis not due to a substance or known physiological condition F29 Active 59189052 Problem Iron deficiency anemia, unspecified iron deficiency anemia type D50.9 Active 53064423 Problem History of CVA with residual deficit I69.30 Active 208564167 Problem Seizure disorder G40.909 Active 012018838 Problem Perennial allergic rhinitis, unspecified allergic rhinitis trigger J30.89 Active 184106078 Problem Chronic kidney disease, unspecified stage N18.9 Active 161295166 Problem Back pain M54.9 Active 284481057 Problem Gastroesophageal reflux disease without esophagitis K21.9 Active 162275013 Problem Insomnia, unspecified type G47.00 Active 416958662 Problem History of colon polyps Z86.010 Active 263890029 ALLERGIES No Information ENCOUNTERS Encounter Location Date Diagnosis [facility] [address] [facility] [id number] [address] Apr, [facility] [address] [facility] [id number], [place] [address] Apr, Back pain M54.9 [facility] [address] [address] Apr, Age-related osteoporosis without current pathological fracture M81.0 [facility] [id number] [place] [address] 77267- 4184 Apr, Replaced By [facility] [address] [place], [place] [id number] Apr, Other specified postprocedural states Z98.890 [facility] [id number] [place] [address] 44149- 9411 Mar, Back pain M54.9 [facility] [id number] [place] [address] 69281- 1063 Mar, [facility] [id number] [place] [address] 26037- 8489 Mar, [facility] [id number] [place] [address] 91587- 3770 Mar, [facility] [id number] [place] [address] 04647- 7850 Mar, Back pain M54.9 [facility] [id number] [place] [address] 88345- 0555 Mar, Back pain M54.9 and Encounter for immunization Z23 [facility] [address] [id number] [address] 53[address] Feb, [facility] [id number] [place] [address] 18411- 8668 Feb, Unspecified psychosis not due to a substance or known physiological condition F29 ; Personality disorder F60.9 and Factitious disorder imposed on self, recurrent episode F68.10 [facility] [address] [address] 3832 Feb, Back pain M54.9 [facility] [address] [address] Jan, Unspecified psychosis not due to a substance or known physiological condition F29 ; Personality disorder F60.9 and Factitious disorder imposed on self, recurrent episode F68.10 [facility] [id number] [place] [address] 68733- 2663 Jan, [facility] [id number] [place] [address] 07333- 9002 Jan, Back pain M54.9 and Seizure disorder G40.909 [facility] [id number] [place] [address] 74101- 2883 Jan, Back pain M54.9 [facility] [id number] [place] [address] 09162- 7019 Jan, Back pain M54.9 [facility] [id number] [place] [address] 67364- 5435 Jan, [facility] [id number] [place] [address] 40167- 9812 Jan, Unspecified psychosis not due to a substance or known physiological condition F29 ; Personality disorder F60.9 and Factitious disorder imposed on self, recurrent episode F68.10 [facility] [id number] [place] [address] 53531- 6818 Dec, Back pain M54.9 ; Seizure disorder G40.909 ; Ventral hernia without obstruction or gangrene K43.9 and History of CVA with residual deficit I69.30 [facility] [id number] [place] [address] 64945- 4537 Dec, Unspecified psychosis not due to a substance or known physiological condition F29 ; Personality disorder F60.9 and Factitious disorder imposed on self, recurrent episode F68.10 [facility] [id number] [place] [address] 34832- 7249 Dec, [facility] [id number] [place] [address] 31274- 9499 Dec, Back pain M54.9 [facility] [id number] [place] [address] 83203- 2575 Dec, Factitious disorder imposed on self, recurrent episode F68.10 ; Personality disorder F60.9 ; Insomnia, unspecified type G47.00 and Anxiety F41.9 [facility] [id number] [place] [address] 24646- 8300 Nov, Unspecified psychosis not due to a substance or known physiological condition F29 ; Personality disorder F60.9 and Factitious disorder imposed on self, recurrent episode F68.10 [facility] [id number] [place] [address] 18756- 8417 Nov, Back pain M54.9 [facility] [id number] [place] [address] 04381- 4474 Nov, Unspecified psychosis not due to a substance or known physiological condition F29 ; Personality disorder F60.9 and Factitious disorder imposed on self, recurrent episode F68.10 [facility] [id number] [place] [address] 87252- 8593 October, [facility] [id number] [place] [address] 73110- 2866 October, [facility] [id number] [place] [address] 27994- 1512 October, Unspecified psychosis not due to a substance or known physiological condition F29 ; Personality disorder F60.9 and Factitious disorder imposed on self, recurrent episode F68.10 [facility] [id number] [place] [address] 46790- 9671 October, Back pain M54.9 [facility] [id number] [place] [address] 09045- 6777 October, Seizure disorder G40.909 ; Back pain M54.9 and Allergic state, subsequent encounter T78.40XD [facility] [id number] [place] [address] 33361- 4314 October, [facility] [address] [address]- 2257 Sep, Back pain M54.9 [facility] [id number] [place] [address] 75763- 6828 Sep, Unspecified psychosis not due to a substance or known physiological condition F29 ; Personality disorder F60.9 and Factitious disorder imposed on self, recurrent episode F68.10 [facility] [id number] [place] [address] 42846- 0886 Sep, [facility] [id number] [place] [address] 59414- 4715 Sep, [facility] [id number] [place] [address] 61951- 9104 Sep, [facility] [id number] [place] [address] 11594- 6515 Sep, [facility] [id number] [place] [address] 83565- 3272 Aug, [facility] [id number] [place] [address] 46588- 6006 Aug, Back pain M54.9 [facility] [id number] [place] [address] 62205- 0568 Aug, Factitious disorder imposed on self, recurrent episode F68.10 ; Personality disorder F60.9 ; Insomnia, unspecified type G47.00 and Anxiety F41.9 [facility] [address] [address]- 1783 Aug, Back pain M54.9 ; Iron deficiency anemia, unspecified iron deficiency anemia type D50.9 ; Chronic kidney disease, unspecified stage N18.9 and Breast cancer screening Z12.31 [facility] [id number] [address] Jul, Back pain M54.9 [facility] [id number] [place] [address] [id number] Jul, [facility] [address] [id number] [id number] Jul, [facility] [id number] [id number] Jun, Back pain M54.9 [facility] [id number] [address] Jun, [facility] [id number] [place] [address] [id number] Jun, Back pain M54.9 [facility] [address] [id number] [address]- 9647 Jun, Back pain M54.9 ; Seizure disorder G40.909 and Age-related osteoporosis without current pathological fracture M81.0 [facility] [id number][place] [address] May, [facility] [id number] [place] [address] 960922- 9492 May, Back pain M54.9 [facility] [id number] [place] [address] 66172- 6159 Apr, Back pain M54.9 ; Encounter for immunization Z23 ; Gastroesophageal reflux disease without esophagitis K21.9 ; Age-related osteoporosis without current pathological fracture M81.0 and Chronic pruritus L29.9 [facility] [id number] [address] 5189 Apr, History of CVA with residual deficit I69.30 [facility] [id number] [address] 7468 Apr, Factitious disorder imposed on self, recurrent episode F68.10 and Personality disorder F60.9 [facility] [id number][place] [address] 08 Apr, 2017 Back pain M54.9 [facility] [address] [id number] [address]- 2618 Mar, Factitious disorder imposed on self, recurrent episode F68.10 [facility] [id number] [place] [address] 41649- 5503 Mar, [facility] [id number] [place] [address] [id number] Mar, [facility] [id number] [place] [address] [id number] Mar, Back pain M54.9 [facility] [id number] [place] [address] 34419- 4945 Mar, Back pain M54.9 ; Seizure disorder G40.909 and Age-related osteoporosis without current pathological fracture M81.0 [facility] [id number] [place] [address] 91811- 3705 Feb, History of CVA with residual deficit I69.30 [facility] [id number] [place] [address] 50378- 0794 Feb, Factitious disorder imposed on self, recurrent episode F68.10 and Personality disorder F60.9 [facility] [id number] [place] [address] 49014- 5156 Feb, Back pain M54.9 [facility] [id number] [place] [address] 03171- 0901 Feb, [facility] [id number] [place] [address] 85720- 0845 Jan, Replaced By [facility] [address] [place] [id number] Jan, Age- related osteoporosis without current pathological fracture M81.0 and Allergic state, subsequent encounter T78.40XD [facility] [id number] [place] [address] 02375- 6153 Jan, Factitious disorder imposed on self, recurrent episode F68.10 and Personality disorder F60.9 [facility] [id number] [place] [address] 42125- 3140 Dec, Back pain M54.9 [facility] [address] [address]- 5671 Dec, Personality disorder F60.9 and Factitious disorder imposed on self, recurrent episode F68.10 [facility] [id number][place] [address] Dec, Back pain M54.9 [facility] [id number] [place] [address] [id number] Dec, [facility] [id number] [place] [address] [id number] Dec, [facility] [id number] [place] [address] 03359- 6476 Dec, [facility] [id number] [place] [address] 42200- 6917 Nov, [facility] [id number] [place] [address] 85281- 4604 Nov, Back pain M54.9 ; Anemia, unspecified type D64.9 and History of colon polyps Z86.010 [facility] [id number] [place] [address] 27940- 0329 Nov, Back pain M54.9 [facility] [id number] [place] [address] [id number] October, Back pain M54.9 Replaced By [facility] [address] [place] [id number] October, Back pain M54.9 and Gastroesophageal reflux disease without esophagitis K21.9 [facility] [id number] [place] [address] [id number] Sep, [facility] [id number] [place] [address] 54072- 8681 Sep, [facility] [address], [place] [address]- 4984 Sep, [facility] [address] [address]- 8755 Sep, [facility] [address], [place] [address]- 0420 Sep, [facility] [address], [place] [address]- 8866 Sep, Seizure disorder G40.909 [facility] [address], [place] [address]- 2280 Sep, Back pain M54.9 [facility] [address], [place] [address]- 6162 Sep, [facility] [id number] [place] [address] 73476- 8935 Aug, Back pain M54.9 [facility] [address], [place] [address]- 4104 Aug, Seizure disorder G40.909 [facility] [id number] [id number] Aug, [facility] [id number] [place] [address] [id number] 16 Aug, 2016 Back pain M54.9 [facility] [id number][place] [id number] Aug, Back pain M54.9 [facility] [address] [id number] [id number] 06 Aug, 2016 Back pain M54.9 Replaced By [facility] [address] [place] [id number] Jul, Weakness R53.1 [facility] [address] [address]- 2577 Jul, Seizure disorder G40.909 [facility] [address], [place] [address]- 5871 Jul, [facility] [address], [place] [address]- 1803 Jul, Breast cancer screening Z12.39 [facility] [id number] [place] [address] 49848- 5690 Jul, [facility] [id number] [place] [address] 43314- 2690 Jul, [facility] [id number] [place] [address] 98606- 6198 Jul, [facility] [id number] [place] [address] 38970- 6949 Jul, Seizure disorder G40.909 ; Fatigue, unspecified type R53.83 ; Perennial allergic rhinitis, unspecified allergic rhinitis trigger J30.89 and Chronic kidney disease, unspecified stage N18.9 [facility] [id number] [place] [address] 61674- 4739 Jul, [facility] [id number] [place] [address] 47561- 5608 Jul, Seizure disorder G40.909 [facility] [id number] [place] [address] 17543- 3616 Jun, [facility] [id number] [place] [address] 38720- 9907 Jun, Replaced By [facility] [address] [id number] Jun, Perennial allergic rhinitis, unspecified allergic rhinitis trigger J30.89 [facility] [address] [id number] [address] Jun, [facility] [id number] [place] [address] 32245- 2377 Jun, Seizure disorder G40.909 [facility] [address] [id number] [address] Jun, [facility] [id number] [place] [address] [id number] May, [facility] [address], [place] [address]- 4834 May, [facility] [id number] [place] [address] 64809- 1239 May, [facility] [id number] [place] [address] 16196- 9073 May, [facility] [id number] [place] [address] 43045- 2594 May, History of CVA with residual deficit I69.30 [facility] [id number] [place] [address] 71613- 8907 May, [facility] [id number] [place] [address] 27964- 4546 May, [facility] [id number] [place] [address] 17366- 0231 May, [facility] [id number] [place] [address] 14317- 0442 May, Seizure disorder G40.909 [facility] [id number] [place] [address] 69188- 2782 May, [facility] [address] [place] [address] May, Back pain M54.9 and Seizure disorder G40.909 [facility] [id number] [place] [address] 14983- 0067 Apr, [facility] [id number] [place] [address] 34432- 5532 Apr, Back pain M54.9 [facility] [id number] [place] [address] 79223- 2633 Mar, [facility] [address] [place] [address] Mar, Insomnia, unspecified type G47.00 [facility] [id number] [address]- 9530 Mar, [facility] [address] [facility] [id number] [address]- 9563 Feb, [facility] [address] [facility] [id number] [address]- 7462 Feb, [facility] [address] [facility] [id number] [address]- 4982 Feb, [facility] [address] [facility] [id number], [place] [address]- 3010 Jan, [facility] [address] [facility] [id number] [place] [address] 09861- 5103 Jan, [facility] [address] [place] [address] Jan, Seizure disorder G40.909 and Back pain M54.9 [facility] [address] [facility] [id number], [place] [address]- 6792 Dec, [facility] [address] [facility] [id number], [place] [address]- 1453 Dec, [facility] [address] [facility] [id number], [place] [address]- 2257 Dec, [facility] [address] [id number], [place] [address]- 6330 Nov, [facility] [address] [facility] [id number], [place] [address]- 9419 Nov, [facility] [address] [facility] [id number][place] [address]- 3002 Nov, Back pain M54.9 [facility] [address] [facility] [id number] [address]- 5045 October, [facility] [address] [facility] [id number], [place] [address]- 8541 October, Back pain M54.9 [facility] [id number] [place] [address] 62402- 6604 October, Seizure disorder G40.909 and B12 deficiency E53.8 [facility] [id number] [place] [address] 02276- 8823 Sep, History of CVA with residual deficit I69.30 [facility] [id number] [place] [address] 99763- 8537 Sep, [facility] [address] 86949- 1476 Sep, [facility] [id number] [place] [address] 16784- 4890 Sep, Back pain M54.9 [facility] [id number] [place] [address] 83279- 6949 Sep, Seizure disorder G40.909 [facility] [address] 89670- 2130 Aug, Back pain M54.9 [facility] [id number] [place] [address] 60327- 6584 18 Aug, 2015 Seizure disorder G40.909 [facility] [id number] [place] [address] 85469- 2115 16 Aug, 2015 Back pain M54.9 [facility] [id number] [place] [address] 68027- 5015 14 Aug, 2015 Heart failure, unspecified I50.9 [facility] [id number] [place] [address] [id number]- 4837 14 Aug, 2015 Medication monitoring encounter Z51.81 [facility] [address] 23827- 7054 15 Jul, 2015 [facility] [id number] [place] [address] 05364- 8520 09 Jul, 2015 Seizure disorder G40.909 [facility] [address] [place] [address] Jul, Back pain M54.9 [facility] [id number] [place] [address] 21603- [phone] Jun, [facility] [id number] [place] [address] [phone]- 5174 Jun, [facility] [id number] [place] [address] [phone]- 6134 Jun, Mental status change R41.82 ; History of CVA with residual deficit I69.30 ; Back pain M54.9 and Seizure disorder G40.909 [facility] [id number] [place] [address] [phone]- [phone] Jun, [facility] [id number] [place] [address] 89301- 9970 May, [facility] [id number] [place] [address] [phone]- [phone] Apr, [facility] [id number] [place] [address] 67858- 1672 Apr, Medication monitoring encounter Z51.81 [facility] [id number] [place] [address] 13353- 6330 Mar, Vomiting R11.10 [facility] [id number] [place] [address] 05708- 5989 Mar, [facility] [id number] [place] [address] 64833- 1111 18 Feb, 2015 [facility] [id number] [place] [address] 60871- 8443 10 Feb, 2015 UTI (urinary tract infection) 599.0 [facility] [id number] [address] 73[address] Jan, [facility] [id number] [place] [address] 41204- 4902 Jan, [facility] [place] [facility] [address] [id number] [place] [address] 1203 Jan, [facility] [place] [facility] [address] [id number] [place] [address]- 9818 Dec, [facility] [place] [facility] [address] [id number] [place] [address]- 9713 Dec, [facility] [place] [facility] [address] [id number] [place] [address]- 7197 Dec, [facility] [place] [facility] [address] [id number] [place] [address]- 2243 Dec, [facility] [place] [facility] [address] [id number] [place] [address]- 6591 Nov, UNKNOWN Nov, [facility] [place] [facility] [address] [id number] [place] [address]- 4356 October, [facility] [place] [facility] [address] [id number] [place] [address]- 0290 Sep, [facility] [place] [facility] [address] [id number] [place] [address]- 5158 Sep, [facility] [place] [facility] [address] [id number] [place] [address]- 1237 Aug, [facility] [place] [facility] [address] [id number] [place] [address]- 0256 Aug, [facility] [place] [facility] [address] [id number] [place] [address]- 7728 Jul, [facility] [place] [facility] [address] [id number] [place] [address]- 5038 Jul, [facility] [place] [facility] [address] [id number] [place] [address]- 9586 Jul, [facility] [place] [facility] [address] [id number] [place] [address]- 2546 Jul, [facility] [place] [facility] [address] [id number] [place] [address]- 5595 Jul, [facility] [place] [facility] [address] [id number] [place] [address]- 9019 Jun, [facility] [place] [facility] [address] [id number] [place] [address]- 8292 Jun, [facility] [place] [facility] [address] [id number] [place] [address]- 2637 Jun, [facility] [place] [facility] [address] [id number] [place] [address]- 3329 Jun, [facility] [place] [facility] [address] [id number] [place] [address]- 2548 Jun, [facility] [place] [facility] [address] [id number] [place] [address]- 9634 Jun, [facility] [place] [facility] [address] [id number] [place] [address]- 0467 Jun, [facility] [place] [facility] [address] [id number] [place] [address]- 5151 Jun, [facility] [place] [facility] [address] [id number] [place] [address]- 5228 Jun, [facility] [place] [facility] [address] [id number] [place] [address]- 5819 Jun, [facility] [place] [facility] [address] [id number] [place] [address]- 4577 Jun, [facility] [place] [facility] [address] [id number] [place] [address]- 3294 Jun, [facility] [place] [facility] [address] [id number] [place] [address]- 5798 Jun, [facility] [place] [facility] [address] [id number] [place] [address]- 4455 Jun, [facility] [place] [facility] [address] [id number] [place] [address]- 1099 Jun, [facility] [place] [facility] [address] [id number] [place] [address]- 7282 Jun, [facility] [address] [id number] [place] [address]- 9477 Jun, [facility] [address] [id number] [place] [address]- 9277 Jun, [facility] [address] [id number] [place] [address]- 9884 May, [facility] [address] [id number] [place] [address]- 0291 May, [facility] [address] [id number] [place] [address]- 0572 May, [facility] [address] [id number] [place] [address]- 5339 May, [facility] [address] [id number] [place] [address]- 2578 May, [facility] [address] [id number] [place] [address]- 0329 May, [facility] [address] [id number] [place] [address]- 2615 May, [facility] [address] [id number] [place] [address]- 1051 May, [facility] [address] [id number] [place] [address]- 5904 May, [facility] [address] [id number] May, [facility] [address] [id number] [place] [address]- 4104 May, [facility] [address] [id number] [place] [address]- 3506 May, [facility] [address] [id number] [place] [address]- 2755 May, [facility] [place] [facility] [address] [id number] [place] [address]- 8108 Apr, [facility] [place] [facility] [address] [id number] [place] [address]- 3348 Apr, [facility] [place] [facility] [address] [id number] [place] 8239 Apr, [facility] [place] [facility] [address] [id number] [place] [address]- 5689 Apr, [facility] [place] [facility] [address] [id number] [place] [address]- 5020 Apr, [facility] [place] [facility] [address] [id number] [place] [address]- 0231 Apr, [facility] [place] [facility] [address] [id number] [place] [address]- 8145 Mar, [facility] [place] [facility] [address] [id number] [place] [address]- 9086 Mar, [facility] [place] [facility] [address] [id number] [place] [address]- 8499 Mar, [facility] [place] [facility] [address] [id number] [place] [address]- 3292 Mar, [facility] [place] [facility] [address] [id number] [address]- 4276 Mar, [facility] [place] [facility] [address] [id number], [place] [address]- 8723 Mar, [facility] [place] [facility] [address] [id number] [place] [address]- 1120 Feb, [facility] [place] [facility] [address] [id number] [place] [address]- 9100 Feb, [facility] [place] [facility] [address] [id number] [place] [address]- 2153 Feb, [facility] [place] [facility] [address] [id number] [place] [address]- 5457 Feb, [facility] [place] [facility] [address] [id number] [place] [address]- 2523 Feb, [facility] [place] [facility] [address] [id number] [place] [address]- 0595 Feb, [facility] [place] [facility] [address] [id number] [place] [address]- 6426 Feb, [facility] [place] [facility] [address] [id number] [place] [address]- 2971 Feb, [facility] [place] [facility] [address] [id number] [place] [address]- 6618 Feb, [facility] [place] [facility] [address] [id number] [place] [address]- 8367 Feb, [facility] [address] [id number] Feb, [facility] [place] [facility] [address] [id number] [place] [address]- 4377 Feb, [facility] [place] [facility] [address] [id number] [place] [address]- 2765 Jan, [facility] [place] [facility] [address] [id number] [place] [address]- 8233 Jan, [facility] [place] [facility] [address] [id number] [place] [address]- 4691 Dec, [facility] [place] [facility] [address] [id number] [place] [address]- 8199 Dec, [facility] [place] [facility] [address] [id number] [place] [address]- 6472 Dec, [facility] [place] [facility] [address] [id number] [place] [address]- 7624 Dec, [facility] [place] [facility] [address] [id number] [place] [address]- 1994 Dec, [facility] [place] [facility] [address] [id number] [place] [address]- 7001 Dec, 2013 [facility] [place] [facility] [address] [id number] [place] [address]- 5554 Dec, 2013 [facility] [place] [facility] [address] [id number] [place] [address]- 4160 Dec, 2013 [facility] [place] [facility] [address] [id number] [place] [address]- 8606 Dec, [facility] [place] [facility] [address] [id number] [place] [address]- 7989 Dec, [facility] [place] [facility] [address] [id number] [place] [address]- 4480 Nov, [facility] [place] [facility] [address] [id number] [place] [address]- 2144 Nov, [facility] [place] [facility] [address] [id number] [place] [address]- 2744 Nov, [facility] [place] [facility] [address] [id number] [place] [address]- 8365 Nov, [facility] [place] [facility] [address] [id number] [place] [address]- 2417 Nov, [facility] [place] [facility] [address] [id number] [place] [address]- 9244 Nov, [facility] [place] [facility] [address] [id number] [place] [address]- 0451 Nov, [facility] [place] [facility] [address] [id number] [place] [address]- 0848 Nov, [facility] [place] [facility] [address] [id number] [place] [address]- 2785 Nov, [facility] [place] [facility] [address] [id number] [place] [address]- 5623 Nov, [facility] [place] [facility] [address] [id number] [place] [address]- 6930 Nov, [facility] [place] [facility] [address] [id number] [place] [address]- 0620 Nov, [facility] [place] [facility] [address] [id number] [place] [address]- 8409 Nov, [facility] [place] [facility] [address] [id number] [place] [address]- 9086 Nov, [facility] [place] [facility] [address] [id number] [place] [address]- 0834 October, [facility] [place] [facility] [address] [id number] [place] [address]- 8709 October, [facility] [place] [facility] [address] [id number] [place] [address]- 9531 October, [facility] [place] [facility] [address] [id number] [place] [address]- 3459 October, [facility] [place] [facility] [address] [id number] [place] [address]- 7464 October, [facility] [place] [facility] [address] [id number] [place] [address]- 2071 October, [facility] [place] [facility] [address] [id number] [place] [address]- 1911 October, [facility] [place] [facility] [address] [id number] [place] [address]- 6898 October, [facility] [place] [facility] [address] [id number] [place] [address]- 5604 October, [facility] [place] [facility] [address] [id number] [place] [address]- 6702 October, [facility] [place] [facility] [address] [id number] [place] [address]- 7386 Sep, [facility] [place] [facility] [address] [id number] [place] [address]- 0174 Sep, [facility] [place] [facility] [address] [id number] [place] [address]- 1337 14 Sep, 2013 [facility] [place] [facility] [address] [id number] [place] [address]- 7934 14 Sep, 2013 [facility] [place] [facility] [address] [id number] [place] [address]- 7545 14 Sep, 2013 [facility] [place] [facility] [address] [id number] [place] [address]- 7019 Sep, [facility] [place] [facility] [address] [id number] [place] [address]- 8929 Sep, [facility] [place] [facility] [address] [id number] [place] [address]- 4874 Sep, [facility] [place] [facility] [address] [id number] [place] [address]- 9427 Sep, [facility] [place] [facility] [address] [id number] [place] [address]- 9469 Sep, [facility] [place] [facility] [address] [id number] [place] [address]- 4704 Aug, [facility] [place] [facility] [address] [id number] [place] [address]- 9876 Aug, [facility] [place] [facility] [address] [id number] [place] [address]- 5805 Aug, [facility] [place] [facility] [address] [id number] [place] [address]- 3580 Aug, [facility] [place] [facility] [address] [id number] [place] [address]- 6461 Aug, [facility] [place] [facility] [address] [id number] [place] [address]- 1642 Aug, [facility] [place] [facility] [address] [id number] [place] [address]- 4240 05 Aug, 2013 [facility] [place] [facility] [address] [id number] [place] [address]- 6209 Aug, [facility] [place] [facility] [address] [id number] [place] [address]- 2334 Aug, [facility] [place] [facility] [address] [id number] [place] [address]- 2626 Jul, [facility] [place] [facility] [address] [id number] [place] [address]- 2456 Jul, [facility] [place] [facility] [address] [id number] [place] [address]- 8768 Jul, [facility] [place] [facility] [address] [id number] [place] [address]- 9417 Jul, [facility] [place] [facility] [address] [id number] [place] [address]- 7436 Jul, [facility] [place] [facility] [address] [facility] [id number] [place] [address]- 6951 Jul, [facility] [place] [facility] [address] [id number] [place] [address]- 9638 Jul, [facility] [place] [facility] [address] [id number] [place] [address]- 3599 Jul, [facility] [place] [facility] [address] [facility] [id number] [place] [address]- 5641 Jul, [facility] [place] [facility] [address] [facility] [id number] [place] [address]- 2930 Jul, [facility] [place] [facility] [address] [id number] [place] [address]- 1141 Jul, [facility] [place] [facility] [address] [id number] [place] [address]- 0246 Jul, [facility] [place] [facility] [address] [id number] [place] [address]- 5099 Jul, [facility] [place] [facility] [address] [facility] [id number] [place] [address]- 4036 Jul, [facility] [place] [facility] [address] [id number] [place] [address]- 6443 Jul, [facility] [address] [id number] [place] [address]- 2554 Jul, [facility] [address] [id number] [place] [address]- 3931 Jun, [facility] [address] [id number] [place] [address]- 2918 Jun, [facility] [address] [id number] [place] [address]- 3071 Jun, [facility] [address] [id number] [place] [address]- 1821 Jun, [facility] [address] [id number] [place] [address]- 9247 Jun, [facility] [address] [id number] [place] [address]- 3903 Jun, [facility] [address] [id number] [place] [address]- 6948 May, [facility] [address] [id number] [place] [address]- 9956 May, [facility] [address] [id number] [place] [address]- 1318 May, [facility] [address] [id number] [place] [address]- 3014 May, [facility] [address] [id number] [place] [address]- 3737 Apr, [facility] [place] [facility] [address] [id number] [place] [address]- 3597 Apr, [facility] [address] [id number] [place] [address]- 0692 Apr, [facility] [address] [id number] [place] [id number] 0914 Apr, [facility] [place] [facility] [address] [id number] [place] [address]- 0305 Apr, [facility] [place] [facility] [address] [id number] [place] [address]- 3543 Apr, [facility] [place] [facility] [address] [id number] [place] [address]- 3065 Apr, [facility] [place] [facility] [address] [id number] [place] [address]- 1601 Apr, [facility] [place] [facility] [address] [id number] [place] [address]- 5488 Apr, [facility] [place] [facility] [address] [id number] [place] [address]- 5514 Apr, [facility] [place] [facility] [address] [id number] [place] [address]- 4940 Apr, [facility] [place] [facility] [address] [id number] [place] [address]- 3823 Apr, [facility] [place] [facility] [address] [id number] [place] [address]- 8040 Mar, [facility] [place] [facility] [address] [id number], [place] [address]- 2784 28 Mar, 2013 [facility] [place] [facility] [address] [id number], [place] [address]- 1808 16 Mar, 2013 [facility] [place] [facility] [address] [id number], [place] [address]- 6967 16 Mar, 2013 [facility] [place] [facility] [address] [id number] [place] [address]- 2792 15 Mar, 2013 [facility] [place] [facility] [address] [id number], [place] [address]- 7213 15 Mar, 2013 [facility] [place] [facility] [address] [id number] [place] [address]- 2384 27 Feb, 2013 [facility] [place] [facility] [address] [id number] [place] [address]- 0112 25 Feb, 2012 [facility] [place] [facility] [address] [id number] [place] [address]- 2636 25 Feb, 2012 [facility] [place] [facility] [address] [id number] [place] [address]- 0666 23 Feb, 2013 [facility] [place] [facility] [address] [id number] [place] [address]- 6976 17 Feb, 2013 [facility] [place] [facility] [address] [id number] [place] [address]- 9778 10 Feb, 2013 [facility] [place] [facility] [address] [id number] [place] [address] 04 Feb, 2013 [facility] [place] [facility] [address] [id number] [place] [address] 30 Jan, 2013 [facility] [place] [facility] [address] [id number] [place] [address] Jan, [facility] [place] [facility] [address] [id number] [place] [address] Jan, [facility] [place] [facility] [address] [id number] [place] [address] Jan, [facility] [place] [facility] [address] [id number] [place] [address] Jan, [facility] [place] [facility] [address] [id number] [place] [address] Jan, [facility] [place] [facility] [address] [id number] [place] [address] Jan, [facility] [place] [facility] [address] [id number] [place] [address] Dec, [facility] [place] [facility] [address] [id number] [place] [address] Dec, [facility] [place] [facility] [address] [id number] [place] [address] Dec, [facility] [place] [facility] [address] [id number] [place] [address] Dec, [facility] [place] [facility] [address] [id number] [place] [address] Dec, [facility] [place] [facility] [address] [id number] [place] [address] 2546 Dec, [facility] [place] [facility] [address] [id number] [place] [address] Nov, [facility] [place] [facility] [address] [id number] [place] [address] Nov, [facility] [place] [facility] [address] [id number] [place] [address] 2928 Nov, [facility] [place] [facility] [address] [id number] [place] [address] 38[address] Nov, [facility] [place] [facility] [address] [id number] [place] [address]- 8495 October, [facility] [place] [facility] [address] [id number] [place] [address] 3769 October, [facility] [place] [facility] [address] [id number] [place] [address]- [address] October, [facility] [place] [facility] [address] [id number] [place] [address]- 8068 October, [facility] [place] [facility] [address] [id number] [place] [address] 30 Sep, 2012 [facility] [place] [facility] [address] [id number] [place] [address]- [address]83 19 Sep, 2012 [facility] [place] [facility] [address] [id number] [place] [address]- [address]135 16 Sep, 2012 [facility] [place] [facility] [address] [id number] [place] [address]- 3921 12 Sep, 2012 [facility] [place] [facility] [address] [id number] [place] [address]- [address] Sep, [facility] [address] [id number] [place] [address] Sep, [facility] [place] [facility] [address] [id number] [place] [address]- 5[address] Sep, [facility] [place] [facility] [address] [facility] [id number] [place] [address] 1984 Sep, [facility] [place] [facility] [address] [id number] [place] [address] 4961 Aug, [facility] [place] [facility] [address] [id number] [place] [address] Aug, [facility] [place] [facility] [address] [id number] [place] [address]- 9981 Aug, [facility] [place] [facility] [address] [id number] [place] [address]- 9295 18 Jul, 2012 [facility] [place] [facility] [address] [id number] [place] [address] 8[address] 08 Jul, 2012 [facility] [place] [facility] [address] [id number] [place] [address]- [address] Jul, [facility] [place] [facility] [address] [id number] [place] [address]- [address]37 Jul, [facility] [place] [facility] [address] [id number] [address] 05 Jul, 2012 [facility] [place] [facility] [address] [id number], [place] [address] Jun, [facility] [place] [facility] [address] [id number] [place] [address]- 73[address] Jun, [facility] [place] [facility] [address] [id number] [place] [address]- 0394 Jun, [facility] [place] [facility] [address] [id number] [place] [address]- 7146 May, [facility] [place] [facility] [address] [id number] [place] [address]- 3195 11 May, 2012 [facility] [place] [facility] [address] [id number] [place] [address]- 3242 May, [facility] [place] [facility] [address] [id number] [place] [address]- 1626 May, [facility] [place] [facility] [address] [id number] [place] [address]- [address]206 May, [facility] [place] [facility] [address] [id number] [place] [address]- 6233 May, [facility] [place] [facility] [address] [id number] [place] [address]- 1267 May, [facility] [place] [facility] [address] [id number] [place] [address]- 5908 Apr, [facility] [place] [facility] [address] [id number] [place] [address]- 6735 Apr, [facility] [place] [facility] [address] [id number] [place] [address]- 3725 Apr, [facility] [place] [facility] [address] [id number] [place] [address]- [address] Apr, [facility] [place] [facility] [address] [id number] [place] [address] Apr, [facility] [place] [facility] [address] [id number] [place] [address]- 4521 Apr, [facility] [place] [facility] [address] [id number] [place] [address]- 3263 Apr, [facility] [place] [facility] [address] [id number] [place] [address]- 5083 Apr, [facility] [place] [facility] [address] [id number] [place] [address]- 0282 Apr, [facility] [place] [facility] [address] [id number] [place] [address]- 5369 Apr, [facility] [place] [facility] [address] [id number] [place] [address]- 4603 Apr, [facility] [place] [facility] [address] [id number] [place] [address]- 8388 Mar, [facility] [place] [facility] [address] [id number] [place] [address]- 8172 Mar, [facility] [place] [facility] [address] [id number] [place] [address]- 5911 Mar, [facility] [place] [facility] [address] [id number] [place] [address]- 6701 Mar, [facility] [place] [facility] [address] [id number] [place] [address]- 2192 Mar, [facility] [place] [facility] [address] [id number] [place] [address]- 5945 Mar, [facility] [place] [facility] [address] [id number], [place] [address] Mar, [facility] [place] [facility] [address] [id number] [place] [address]- 3284 Mar, [facility] [place] [facility] [address] [id number], [place] [address]- 78[address] Mar, [facility] [place] [facility] [address] [id number], [place] [address]- 67[address] Mar, [facility] [place] [facility] [address] [id number], [place] [address] 270[address] Mar, [facility] [place] [facility] [address] [address] [id number] [place] [address] 2012 [facility] [place] [facility] [address] [id number], [place] [address] 27 Feb, 2012 [facility] [place] [facility] [address] [id number] [place] [address] 27 Feb, 2012 [facility] [place] [facility] [address] [id number] [place] [address] 26 Feb, 2012 [facility] [place] [facility] [address] [id number] [place] [address] 24 Feb, 2012 [facility] [place] [facility] [address] [id number] [place] [address] Feb, [facility] [place] [facility] [address] [id number] [place] [address] 2546 Feb, [facility] [place] [facility] [address] [id number] [place] [address] 2546 Feb, [facility] [place] [facility] [address] [id number] [place] [address] 42[address] Feb, [facility] [place] [facility] [address] [id number] [place] [address] Jan, [facility] [place] [facility] [address] [id number] [place] [address] Jan, [facility] [place] [facility] [address] [id number] [place] [address] Jan, [facility] [place] [facility] [address] [id number] [place] [address] Jan, [facility] [place] [facility] [address] [id number] [place] [address] 139[address] Dec, [facility] [place] [facility] [address] [id number] [place] [address] Dec, [facility] [place] [facility] [address] [id number] [place] [address] Dec, [facility] [place] [facility] [address] [id number] [place] [address] 45[address] Dec, [facility] [place] [facility] [address] [id number] [place] [address] Dec, [facility] [place] [facility] [address] [id number] [place] [address] Dec, [facility] [place] [facility] [address] [id number] [place] [address] Dec, [facility] [place] [facility] [address] [id number] [place] [address] 9093 Dec, [facility] [place] [facility] [address] [id number] [place] [address] Dec, [facility] [place] [facility] [address] [id number] [place] [address]- [address] Dec, [facility] [place] [facility] [address] [id number] [place] [address] Dec, [facility] [place] [facility] [address] [id number] [place] [address] 4369 Dec, [facility] [place] [facility] [address] [id number] [place] [address] 5487 Dec, [facility] [place] [facility] [address] [id number] [place] [address] 8458 Dec, [facility] [place] [facility] [address] [id number] [place] [address] Nov, [facility] [place] [facility] [address] [id number] [place] [address] 40[address] Nov, [facility] [place] [facility] [address] [id number] [place] [address] 2419 Nov, [facility] [place] [facility] [address] [id number] [place] [address]- 0435 Nov, [facility] [place] [facility] [address] [id number] [place] [address] Nov, [facility] [place] [facility] [address] [id number] [place] [address] 3976 Nov, [facility] [place] [facility] [address] [id number] [place] [address] 4[address] October, [facility] [place] [facility] [address] [id number] [place] [address] October, [facility] [place] [facility] [address] [id number] [place] [address] 6746 October, [facility] [place] [facility] [address] [id number] [place] [address] October, [facility] [place] [facility] [address] [id number] [place] [address] Sep, [facility] [place] [facility] [address] [id number] [place] [address]- 4726 Sep, [facility] [place] [facility] [address] [id number] [place] [address]- [address]482 Sep, [facility] [place] [facility] [address] [id number] [place] [address] 8637 Sep, [facility] [place] [facility] [address] [id number] [place] [address] 7904 Sep, [facility] [place] [facility] [address] [id number] [place] [address] 4796 Aug, [facility] [place] [facility] [address] [id number] [place] [address]- 4545 Aug, [facility] [place] [facility] [address] [id number] [place] [address] 5959 Aug, [facility] [place] [facility] [address] [id number] [place] [address]- [address] Aug, [facility] [place] [facility] [address] [id number] [place] [address] 9571 Aug, [facility] [place] [facility] [address] [id number] [place] [address]- 5716 Aug, [facility] [place] [facility] [address] [id number] [place] [address] 8854 Aug, [facility] [place] [facility] [address] [id number] [place] [address]- 0956 16 Jul, 2011 [facility] [place] [facility] [address] [facility] [id number], [place] [address] 16 Jul, 2011 [facility] [address] [id number] [place] [address] 3788 Jul, [facility] [address] [facility] [id number] [place] [address]- 5536 Jul, [facility] [address] [facility] [id number] [place] [address] 38[address] Jun, [facility] [address] [place] [id number] Jun, [facility] [address] [id number] [place] [address]408 Jun, [facility] [address] [facility] [id number] [place] [address] Jun, [facility] [address] [id number] [place] [address] Jun, [facility] [address] [facility] [id number], [place] [address] Jun, [facility] [address] [id number] [place] [address] Jun, [facility] [address] [id number] [address] Jun, [facility] [address] [id number] [place] [address] 9126 May, [facility] [address] [facility] [id number], [place] [address] May, [facility] [address] [facility] [id number] [place] [address]- 4610 May, [facility] [address] [facility] [id number] [place] [address]- 9548 May, [facility] [address] [facility] [id number], [place] [address] 1997 May, [facility] [place] [facility] [address] [id number] [place] [address]- 1859 May, [facility] [place] [facility] [address] [id number] [place] [address]- 3870 May, [facility] [place] [facility] [address] [id number] [place] [address]- 4855 Apr, [facility] [place] [facility] [address] [id number] [place] [address]- 8841 Apr, [facility] [place] [facility] [address] [id number] [place] [address]- 6361 Apr, [facility] [place] [facility] [address] [id number] [place] [address]- 2636 Mar, [facility] [place] [facility] [address] [id number] [place] [address]- 2359 Mar, [facility] [place] [facility] [address] [id number] [place] [address]- 4264 14 Mar, 2011 [facility] [place] [facility] [address] [id number] [place] [address]- 4266 Mar, [facility] [place] [facility] [address] [id number] [place] [address]- 2640 Mar, [facility] [place] [facility] [address] [id number] [place] [address]- 6691 Mar, [facility] [place] [facility] [address] [id number] [place] [address]- 5149 Mar, [facility] [place] [facility] [address] [id number] [place] [address]- 3782 Jan, [facility] [place] [facility] [address] [id number] [place] [address]- 4831 May, [facility] [place] [facility] [address] [id number] [place] [address]- 1805 May, [facility] [place] [facility] [address] [id number] [place] [address]- 5038 13 May, 2010 [facility] [place] [facility] [address] [id number] [place] [address]- 3926 13 May, 2010 [facility] [place] [facility] [address] [id number] [place] [address]- 9932 10 May, 2010 [facility] [place] [facility] [address] [facility] [id number] [place] [address]- 3479 06 May, 2010 [facility] [place] [facility] [address] [id number], [place] [address]- [address]60 29 Apr, 2010 [facility] [place] [facility] [address] [id number] [place] [address]- 2216 26 Apr, 2010 [facility] [place] [facility] [address] [id number], [place] [address]- 6705 Apr, [facility] [place] [facility] [address] [id number] [place] [address]- 2121 18 Apr, 2010 [facility] [place] [facility] [address] [id number], [place] [address]- 2913 15 Apr, 2010 [facility] [place] [facility] [address] [id number], [place] [address]- 5138 Apr, [facility] [place] [facility] [address] [id number], [place] [address]- 3544 Apr, [facility] [place] [facility] [address] [id number], [place] [address]- 2049 05 Apr, 2010 [facility] [place] [facility] [address] [id number], [place] [address]- 4321 05 Apr, 2010 [facility] [place] [facility] [address] [id number], [place] [address]- 6589 Apr, [facility] [place] [facility] [address] [id number], [place] [address]- 4989 Mar, [facility] [place] [facility] [address] [id number], [place] [address]- 4021 Mar, [facility] [place] [facility] [address] [facility] [id number] [place] [address] 19 Mar, 2010 [facility] [address] [facility] [id number] [address] Mar, [facility] [address] [facility] [id number][place] [address] 18 Mar, 2010 [place] [address] [facility] [id number], [place] [address]- [address] Dec, [facility] [address] [facility] [id number][place] [address] 10 Nov, 2009 IMMUNIZATIONS No Known Immunizations SOCIAL HISTORY Never Assessed REASON FOR VISIT Order Request PLAN OF CARE VITAL SIGNS MEDICATIONS Medication Instructions Dosage Frequency Start Date End Date Duration Status Refresh Tears 0.5 % 1 drop into affected eye as needed Active Famotidine 20 mg Orally Once a day 1 tablet at bedtime 24h October, 90 days Active Nitro-Dur 0.2 MG/HR Transdermal Once a day 1 patch to skin remove after 12 hours 24h Active Lamotrigine 100 MG TAKE 1 TABLET BY MOUTH TWICE DAILY 30 Active Restasis 0.05 % 1 DROP EACH EYE TWICE DAILY 30 Active Citalopram Hydrobromide 10 mg Orally Once a day 1 tablet 24h 30 days Active Fentanyl 62.5 MCG/HR Transdermal every 72 hours 1 patch to skin Feb, Active Fexofenadine HCl 180 MG Orally Once a day 1 tablet 24h Active Topiramate 100 MG TAKE 1 TABLET BY MOUTH TWICE DAILY 30 Active Melatonin 5 mg Orally at bedtime 1 tablet 30 days Active Nitroglycerin 0.2 MG/HR APPLY ONE PATCH TRANSDERMALLY DAILY AND REMOVE AT BEDTIME 30 Active Lipitor 40 mg Orally Once a day 1 tablet 24h Active Metoprolol Tartrate 50 MG Orally Twice a day TAKE 1 TABLET BY MOUTH TWICE DAILY 12h Active Reclast 5 MG/100ML Intravenous once yearly as directed Active Jantoven 1 MG TAKE 1 TABLET BY MOUTH ON SATURDAY AND TAKE 1 AND 1/2 TABLETS SATURDAY THRU SATURDAY 30 Not-Taking Coumadin 1 MG Orally 1.5mg Saturday, Saturday, , Saturday, Saturday. 1mg on Saturday and Saturday 1 tablet Active Rosuvastatin Calcium 10 MG TAKE ONE TABLET BY MOUTH EVERY NIGHT AT BEDTIME 30 Active Phenytoin Sodium Extended 100 MG TAKE 1 CAPSULE BY MOUTH TWICE DAILY 30 Active Refresh Liquigel 1 % Ophthalmic 4 times a day 1 drop into affected eye as needed 6h Active Gabapentin 400 MG TAKE 1 CAPSULE BY MOUTH AT BEDTIME 30 Active Fluticasone Propionate 50 MCG/ACT INSTILL 1 SPRAY IN EACH NOSTRIL TWICE DAILY 30 Active Hydrocortisone 2.5 % Externally every 24 hours as needed for dry skin 1 application to affected area Not-Taking Fentanyl 75 MCG/HR Transdermal every 72 hours 1 patch to skin Mar, 30 days Active Sodium Bicarbonate 650 MG Orally Once a day 1 tablet 24h Active Vitamin D (Ergocalciferol) 71213 UNIT Orally 2 times a day every 7 days 1 capsule Active Bisacodyl 10 mg Rectal Once a day prn 1 suppository as needed Active Clorazepate Dipotassium 3.75 MG Orally Twice a day 1 tablets 12h 28 Active Tussin Cough DM 100-10 MG/5ML Orally every 6 hrs as needed for cough 10 ml as needed Active Hydrocortisone 2.5 % APPLY TO DRY SKIN ONCE DAILY NEEDED 30 Not-Taking Acetaminophen 650 MG Orally every 6 hrs 1 tablet as needed 6h Active MiraLax Orally twice a day 17 GM 12h Active Zofran ODT 4 mg Orally every [...] surgery and skin graft, cholecysectomy Hospitalization History [facility] 12/2016 Hospitalization History [facility] 08/2017 Hospitalization History [facility] 01/2018
--- OUTSIDE RECORDS SUMMARY | 2018-07-05 14:44 | XMS REPORT ---
Author Author NAHOMY BETH Organization [facility] Address [address] [place] [address] Care Team Providers Care Urban Redevelopment Specialist Name Role Phone NAHOMY BETH Unavailable PROBLEMS Type Condition ICD9-CM Code JIV31-DX Code Onset Dates Condition Status SNOMED Code Problem Anemia, unspecified type D64.9 Active 208781889 Problem Personality disorder F60.9 Active 06769848 Problem Factitious disorder imposed on self, recurrent episode F68.10 Active 33389520 Problem Ventral hernia without obstruction or gangrene K43.9 Active 716321532 Problem Allergic state, subsequent encounter T78.40XD Active 103923336 Problem Anxiety F41.9 Active 97011450 Problem Age-related osteoporosis without current pathological fracture M81.0 Active 16455490 Problem Unspecified psychosis not due to a substance or known physiological condition F29 Active 42172931 Problem Iron deficiency anemia, unspecified iron deficiency anemia type D50.9 Active 30015058 Problem History of CVA with residual deficit I69.30 Active 037291122 Problem Seizure disorder G40.909 Active 467112981 Problem Perennial allergic rhinitis, unspecified allergic rhinitis trigger J30.89 Active 774993732 Problem Chronic kidney disease, unspecified stage N18.9 Active 836622846 Problem Back pain M54.9 Active 539083272 Problem Gastroesophageal reflux disease without esophagitis K21.9 Active 329038794 Problem Insomnia, unspecified type G47.00 Active 040164694 Problem History of colon polyps Z86.010 Active 422790224 ALLERGIES No Information ENCOUNTERS Encounter Location Date Diagnosis [facility] [address] [facility] [id number] [address] Apr, [facility] [address] [facility] [id number], [place] [address] Apr, Back pain M54.9 [facility] [address], [place] [address] 5765 Apr, Age-related osteoporosis without current pathological fracture M81.0 [facility] [address] [place] [address] 99936- 5464 Apr, [facility] [address] [place] [id number] Apr, Other specified postprocedural states Z98.890 [facility] [id number] [place] [address] 30579- 3434 Mar, Back pain M54.9 [facility] [id number] [place] [address] 11065- 4107 Mar, [facility] [id number] [place] [address] 88329- 8092 Mar, [facility] [id number] [place] [address] 51404- 6264 Mar, [facility] [id number] [place] [address] 98916- 4812 Mar, Back pain M54.9 [facility] [id number] [place] [address] 62741- 8816 Mar, Back pain M54.9 and Encounter for immunization Z23 [facility] [address] [id number] [address] 42[address] Feb, [facility] [id number] [place] [address] 24755- 1283 Feb, Unspecified psychosis not due to a substance or known physiological condition F29 ; Personality disorder F60.9 and Factitious disorder imposed on self, recurrent episode F68.10 [facility] [address], [place] [address] 88[address] Feb, Back pain M54.9 [facility] [address], [place] [address] 5088 Jan, Unspecified psychosis not due to a substance or known physiological condition F29 ; Personality disorder F60.9 and Factitious disorder imposed on self, recurrent episode F68.10 [facility] [id number] [place] [address] 86333- 7403 Jan, [facility] [id number] [place] [address] 40092- 3115 Jan, Back pain M54.9 and Seizure disorder G40.909 [facility] [id number] [place] [address] 08069- 3735 Jan, Back pain M54.9 [facility] [id number] [place] [address] 61488- 3353 Jan, Back pain M54.9 [facility] [id number] [place] [address] 32547- 0387 Jan, [facility] [id number] [place] [address] 91074- 5344 Jan, Unspecified psychosis not due to a substance or known physiological condition F29 ; Personality disorder F60.9 and Factitious disorder imposed on self, recurrent episode F68.10 [facility] [id number] [place] [address] 74984- 5712 Dec, Back pain M54.9 ; Seizure disorder G40.909 ; Ventral hernia without obstruction or gangrene K43.9 and History of CVA with residual deficit I69.30 [facility] [id number] [place] [address] 15148- 3817 Dec, Unspecified psychosis not due to a substance or known physiological condition F29 ; Personality disorder F60.9 and Factitious disorder imposed on self, recurrent episode F68.10 [facility] [id number] [place] [address] 92321- 7755 Dec, [facility] [id number] [place] [address] 65919- 7680 Dec, Back pain M54.9 [facility] [address] [place] [address] 33992- 0118 Dec, Factitious disorder imposed on self, recurrent episode F68.10 ; Personality disorder F60.9 ; Insomnia, unspecified type G47.00 and Anxiety F41.9 [facility] [id number] [place] [address] 79114- 9388 Nov, Unspecified psychosis not due to a substance or known physiological condition F29 ; Personality disorder F60.9 and Factitious disorder imposed on self, recurrent episode F68.10 [facility] [id number] [place] [address] 97188- 6462 Nov, Back pain M54.9 [facility] [id number] [place] [address] 85489- 6988 Nov, Unspecified psychosis not due to a substance or known physiological condition F29 ; Personality disorder F60.9 and Factitious disorder imposed on self, recurrent episode F68.10 [facility] [id number] [place] [address] 22036- 9346 October, [facility] [id number] [place] [address] 19825- 2984 October, [facility] [id number] [place] [address] 90250- 4685 October, Unspecified psychosis not due to a substance or known physiological condition F29 ; Personality disorder F60.9 and Factitious disorder imposed on self, recurrent episode F68.10 [facility] [id number] [place] [address] 86394- 7456 October, Back pain M54.9 [facility] [id number] [place] [address] 31810- 9719 October, Seizure disorder G40.909 ; Back pain M54.9 and Allergic state, subsequent encounter T78.40XD [facility] [id number] [place] [address] 24793- 0719 October, [facility] [address], [place] [address] 7508 Sep, Back pain M54.9 [facility] [id number] [place] [address] 63743- 1974 Sep, Unspecified psychosis not due to a substance or known physiological condition F29 ; Personality disorder F60.9 and Factitious disorder imposed on self, recurrent episode F68.10 [facility] [id number] [place] [address] 36269- 2825 Sep, [facility] [id number] [place] [address] 50829- 4707 Sep, [facility] [id number] [place] [address] 43732- 6509 Sep, [facility] [id number] [place] [address] 45495- 2202 Sep, [facility] [id number] [place] [address] 45245- 2925 Aug, [facility] [id number] [place] [address] 78649- 5666 Aug, Back pain M54.9 [facility] [address] [place] [address] 89089- 0243 Aug, Factitious disorder imposed on self, recurrent episode F68.10 ; Personality disorder F60.9 ; Insomnia, unspecified type G47.00 and Anxiety F41.9 [facility] [address], [place] [address]- 7643 Aug, Back pain M54.9 ; Iron deficiency anemia, unspecified iron deficiency anemia type D50.9 ; Chronic kidney disease, unspecified stage N18.9 and Breast cancer screening Z12.31 [facility] [id number] [id number] Jul, Back pain M54.9 [facility] [id number] [place] [address] [id number] Jul, [facility] [address] [id number] [id number] Jul, [facility] [id number] [address] Jun, Back pain M54.9 [facility] [id number] [id number] Jun, [facility] [id number] [place] [address] [id number] Jun, Back pain M54.9 [facility] [id number], [place] [address]- 0982 Jun, Back pain M54.9 ; Seizure disorder G40.909 and Age-related osteoporosis without current pathological fracture M81.0 [facility] [id number] [id number] May, [facility] [address] [place] [address] 960531- 1360 May, Back pain M54.9 [facility] [id number] [place] [address] 60740- 5599 Apr, Back pain M54.9 ; Encounter for immunization Z23 ; Gastroesophageal reflux disease without esophagitis K21.9 ; Age-related osteoporosis without current pathological fracture M81.0 and Chronic pruritus L29.9 [facility] [id number] [address] 0438 Apr, History of CVA with residual deficit I69.30 [facility] [id number] [id number] 7340 Apr, Factitious disorder imposed on self, recurrent episode F68.10 and Personality disorder F60.9 [facility] [id number] [id number] 08 Apr, 2017 Back pain M54.9 [facility] [id number], [place] [address]- 1498 Mar, Factitious disorder imposed on self, recurrent episode F68.10 [facility] [address] [place] [address] 53318- 5405 Mar, [facility] [id number] [place] [address] [id number] Mar, [facility] [id number] [place] [address] [phone] Mar, Back pain M54.9 [facility] [id number] [place] [address] 79533- 6511 Mar, Back pain M54.9 ; Seizure disorder G40.909 and Age-related osteoporosis without current pathological fracture M81.0 [facility] [address] [place] [address] 31790- 1023 Feb, History of CVA with residual deficit I69.30 [facility] [id number] [place] [address] 82808- 9758 Feb, Factitious disorder imposed on self, recurrent episode F68.10 and Personality disorder F60.9 [facility] [id number] [place] [address] 62562- 2305 Feb, Back pain M54.9 [facility] [address] [place] [address] 94234- 6894 Feb, [facility] [id number] [place] [address] 49092- 4389 Jan, [facility] [address] [id number] Jan, Age- related osteoporosis without current pathological fracture M81.0 and Allergic state, subsequent encounter T78.40XD [facility] [address] [place] [address] 28734- 5242 Jan, Factitious disorder imposed on self, recurrent episode F68.10 and Personality disorder F60.9 [facility] [address] [place] [address] 13492- 4518 Dec, Back pain M54.9 [facility] [address], [place] [address]- 5726 Dec, Personality disorder F60.9 and Factitious disorder imposed on self, recurrent episode F68.10 [facility] [id number] [id number] Dec, Back pain M54.9 [facility] [id number] [place] [address] [id number] Dec, [facility] [id number] [place] [address] [id number] Dec, [facility] [id number] [place] [address] 95984- 3368 Dec, [facility] [id number] [place] [address] 93847- 5218 Nov, [facility] [id number] [place] [address] 88965- 2645 Nov, Back pain M54.9 ; Anemia, unspecified type D64.9 and History of colon polyps Z86.010 [facility] [address] [place] [address] 79264- 7804 Nov, Back pain M54.9 [facility] [id number] [place] [address] [id number] October, Back pain M54.9 [facility] [address] [id number] October, Back pain M54.9 and Gastroesophageal reflux disease without esophagitis K21.9 [facility] [id number] [place] [address] [id number] Sep, [facility] [address] [place] [address] 44910- 8354 Sep, [facility] [address], [place] [address]- 8632 Sep, [facility] [address], [place] [address]- 4874 Sep, [facility] [address], [place] [address]- 1797 Sep, [facility] [address], [place] [address]- 6388 Sep, Seizure disorder G40.909 [facility] [address], [place] [address]- 0046 Sep, Back pain M54.9 [facility] [address], [place] [address]- 8062 Sep, [facility] [address] [place] [address] 15601- 2256 Aug, Back pain M54.9 [facility] [address], [place] [address]- 3953 Aug, Seizure disorder G40.909 [facility] [id number] [id number] Aug, [facility] [id number] [place] [address] [id number] 16 Aug, 2016 Back pain M54.9 [facility] [id number] [id number] Aug, Back pain M54.9 [facility] [id number] [id number] 06 Aug, 2016 Back pain M54.9 [facility] [address] [id number] Jul, Weakness R53.1 [facility] [address], [place] [address]- 7145 Jul, Seizure disorder G40.909 [facility] [address], [place] [address]- 3321 Jul, [facility] [address], [place] [address]- 1612 Jul, Breast cancer screening Z12.39 [facility] [id number] [place] [address] 99213- 1568 Jul, [facility] [id number] [place] [address] 27269- 1581 Jul, [facility] [id number] [place] [address] 96658- 5845 Jul, [facility] [address] [place] [address] 17198- 8594 Jul, Seizure disorder G40.909 ; Fatigue, unspecified type R53.83 ; Perennial allergic rhinitis, unspecified allergic rhinitis trigger J30.89 and Chronic kidney disease, unspecified stage N18.9 [facility] [id number] [place] [address] 80492- 9865 Jul, [facility] [address] [place] [address] 00491- 1756 Jul, Seizure disorder G40.909 [facility] [id number] [place] [address] 82232- 9423 Jun, [facility] [address] [place] [address] 78776- 4606 Jun, [facility] and [address] [id number] Jun, Perennial allergic rhinitis, unspecified allergic rhinitis trigger J30.89 [facility] [id number] [address] Jun, [facility] [address] [place] [address] 26907- 6886 Jun, Seizure disorder G40.909 [facility] [id number] [address] Jun, [facility] [id number] [place] [address] [phone] May, [facility] [address], [place] [address]- 3685 May, [facility] [address] [place] [address] 85092- 7501 May, [facility] [address] [place] [address] 69427- 3879 May, [facility] [id number] [place] [address] 29237- 6742 May, History of CVA with residual deficit I69.30 [facility] [id number] [place] [address] 26795- 4780 May, [facility] [id number] [place] [address] 20447- 0242 May, [facility] [address] [place] [address] 19245- 7471 May, [facility] [address] [place] [address] 31215- 8218 May, Seizure disorder G40.909 [facility] [address] [place] [address] 29559- 0895 May, [facility] [address] [place] [address] May, Back pain M54.9 and Seizure disorder G40.909 [facility] [address] [place] [address] 55850- 1826 Apr, [facility] [address] [place] [address] 09613- 1464 Apr, Back pain M54.9 [facility] [address] [place] [address] 59482- 7200 Mar, [facility] [address] [place] [address] Mar, Insomnia, unspecified type G47.00 [facility] [id number], [place] [address]- 8873 Mar, [facility] [address] [facility] [id number], [place] [address]- 9871 Feb, [facility] [address] [facility] [id number], [place] [address]- 1171 Feb, [facility] [address] [facility] [id number], [place] [address]- 5474 Feb, [facility] [address] [id number], [place] [address]- 8824 Jan, [facility] [address] [id number] [place] [address] 48645- 9263 Jan, [facility] [address] [place] [address] Jan, Seizure disorder G40.909 and Back pain M54.9 [facility] [address] [facility] [id number], [place] [address]- 7852 Dec, [facility] [address] [facility] [id number], [place] [address]- 0905 Dec, [facility] [address] [facility] [id number], [place] [address]- 1754 Dec, [facility] [id number], [place] [address]- 1265 Nov, [facility] [address] [facility] [id number], [place] [address]- 0110 Nov, [facility] [address] [facility] [id number], [place] [address]- 6179 Nov, Back pain M54.9 [facility] [address] [facility] [id number], [place] [address]- 8091 October, [facility] [address] [facility] [id number], [place] [address]- 3907 October, Back pain M54.9 [facility] [id number] [place] [address] 37345- 9631 October, Seizure disorder G40.909 and B12 deficiency E53.8 [facility] [id number] [place] [address] 16677- 8376 Sep, History of CVA with residual deficit I69.30 [facility] [id number] [place] [address] 95520- 2587 Sep, [facility] [address] 87387- 8267 Sep, [facility] [id number] [place] [address] 17691- 7227 Sep, Back pain M54.9 [facility] [id number] [place] [address] 39389- 8918 Sep, Seizure disorder G40.909 [facility] [address] [address] Aug, Back pain M54.9 [facility] [id number] [place] [address]- 7144 18 Aug, 2015 Seizure disorder G40.909 [facility] [id number] [place] [address] 393[address]- 9536 16 Aug, 2015 Back pain M54.9 [facility] [id number] [place] [address] 92164- 38[address] 14 Aug, 2015 Heart failure, unspecified I50.9 [facility] [id number] [place] [address] 29205- 8664 14 Aug, 2015 Medication monitoring encounter Z51.81 [facility] [address] [address] 15 Jul, 2015 [facility] [id number] [place] [address] 61085- 0093 09 Jul, 2015 Seizure disorder G40.909 [facility] [address] [place] [address] Jul, Back pain M54.9 [facility] [id number] [place] [address] 59985- 5668 Jun, [facility] [id number] [place] [address] 37363- 9324 Jun, [facility] [id number] [place] [address] 50228- 3424 Jun, Mental status change R41.82 ; History of CVA with residual deficit I69.30 ; Back pain M54.9 and Seizure disorder G40.909 [facility] [id number] [place] [address] 11799- 5515 Jun, [facility] [id number] [place] [address] 50941- 4946 May, [facility] [id number] [place] [address] 99796- 8038 Apr, [facility] [id number] [place] [address] 39718- 5027 Apr, Medication monitoring encounter Z51.81 [facility] [id number] [place] [address] 46507- 0725 Mar, Vomiting R11.10 [facility] [id number] [place] [address] 96118- 3762 Mar, [facility] [id number] [place] [address] 90956- 5500 18 Feb, 2015 [facility] [id number] [place] [address] 37814- 9017 10 Feb, 2015 UTI (urinary tract infection) 599.0 [facility] [id number] [address] 7580 Jan, [facility] [id number] [place] [address] 55810- 7702 Jan, [facility] [place] [facility] [address] [id number] [place] [address] 0953 Jan, [facility] [place] [facility] [address] [id number] [place] [address]- 2100 Dec, [facility] [place] [facility] [address] [id number] [place] [address]- 7547 Dec, [facility] [place] [facility] [address] [id number] [place] [address]- 1498 Dec, [facility] [place] [facility] [address] [id number] [place] [address]- 8360 Dec, [facility] [place] [facility] [address] [id number] [place] [address]- 2468 Nov, UNKNOWN Nov, [facility] [place] [facility] [address] [id number] [place] [address]- 4156 October, [facility] [place] [facility] [address] [id number] [place] [address]- 7721 Sep, [facility] [place] [facility] [address] [id number] [place] [address]- 3567 Sep, [facility] [place] [facility] [address] [id number] [place] [address]- 1249 Aug, [facility] [place] [facility] [address] [id number] [place] [address]- 1506 Aug, [facility] [place] [facility] [address] [id number] [place] [address]- 1270 Jul, [facility] [place] [facility] [address] [id number] [place] [address]- 1811 Jul, [facility] [place] [facility] [address] [id number] [place] [address]- 3566 Jul, [facility] [place] [facility] [address] [id number] [place] [address]- 2546 Jul, [facility] [place] [facility] [address] [id number] [place] [address]- 8236 Jul, [facility] [place] [facility] [address] [id number] [place] [address]- 7930 Jun, [facility] [place] [facility] [address] [id number] [place] [address]- 0369 Jun, [facility] [place] [facility] [address] [id number] [place] [address]- 9873 Jun, [facility] [place] [facility] [address] [id number] [place] [address]- 3980 Jun, [facility] [place] [facility] [address] [id number] [place] [address]- 0787 Jun, [facility] [place] [facility] [address] [id number] [place] [address]- 4209 Jun, [facility] [place] [facility] [address] [id number] [place] [address]- 6947 Jun, [facility] [place] [facility] [address] [id number] [place] [address]- 9024 Jun, [facility] [place] [facility] [address] [id number] [place] [address]- 6578 Jun, [facility] [place] [facility] [address] [id number] [place] [address]- 3295 Jun, [facility] [place] [facility] [address] [id number] [place] [address]- 8895 Jun, [facility] [place] [facility] [address] [id number] [place] [address]- 0362 Jun, [facility] [place] [facility] [address] [id number] [place] [address]- 4371 Jun, [facility] [place] [facility] [address] [id number] [place] [address]- 1343 Jun, [facility] [place] [facility] [address] [id number] [place] [address]- 9550 Jun, [facility] [place] [facility] [address] [id number] [place] [address]- 2426 Jun, [facility] [address] [id number] [place] [address]- 6583 Jun, [facility] [address] [id number] [place] [address]- 4015 Jun, [facility] [address] [id number] [place] [address]- 3775 May, [facility] [address] [id number] [place] [address]- 8707 May, [facility] [address] [id number] [place] [address]- 1604 May, [facility] [address] [id number] [place] [address]- 0677 May, [facility] [address] [id number] [place] [address]- 7600 May, [facility] [address] [id number] [place] [address]- 4554 May, [facility] [address] [id number] [place] [address]- 4871 May, [facility] [address] [id number] [place] [address]- 9593 May, [facility] [address] [id number] [place] [address]- 7630 May, [facility] [address] [place] [id number] May, [facility] [address] [id number] [place] [address]- 2922 May, [facility] [address] [id number] [place] [address]- 4886 May, [facility] [address] [id number] [place] [address]- 6192 May, [facility] [place] [facility] [address] [id number] [place] [address]- 3690 Apr, [facility] [place] [facility] [address] [id number] [place] [address]- 8762 Apr, [facility] [place] [facility] [address] [id number] [place] 9692 Apr, [facility] [place] [facility] [address] [id number] [place] [address]- 2694 Apr, [facility] [place] [facility] [address] [id number] [place] [address]- 0870 Apr, [facility] [place] [facility] [address] [id number] [place] [address]- 2739 Apr, [facility] [place] [facility] [address] [id number] [place] [address]- 6097 Mar, [facility] [place] [facility] [address] [id number] [place] [address]- 8135 Mar, [facility] [place] [facility] [address] [id number] [place] [address]- 1541 Mar, [facility] [place] [facility] [address] [id number] [place] [address]- 4751 Mar, [facility] [place] [facility] [address] [id number], [place] [address]- 6824 Mar, [facility] [place] [facility] [address] [id number], [place] [address]- 0069 Mar, [facility] [place] [facility] [address] [id number] [place] [address]- 2219 Feb, [facility] [place] [facility] [address] [id number] [place] [address]- 7119 Feb, [facility] [place] [facility] [address] [id number] [place] [address]- 9959 Feb, [facility] [place] [facility] [address] [id number] [place] [address]- 2401 Feb, [facility] [place] [facility] [address] [id number] [place] [address]- 3958 Feb, [facility] [place] [facility] [address] [id number] [place] [address]- 5126 Feb, [facility] [place] [facility] [address] [id number] [place] [address]- 2370 Feb, [facility] [place] [facility] [address] [id number] [place] [address]- 2223 Feb, [facility] [place] [facility] [address] [id number] [place] [address]- 3917 Feb, [facility] [place] [facility] [address] [id number] [place] [address]- 2256 Feb, [facility] [address] [place] [id number] Feb, [facility] [place] [facility] [address] [id number] [place] [address]- 1133 Feb, [facility] [place] [facility] [address] [id number] [place] [address]- 5576 Jan, [facility] [place] [facility] [address] [id number] [place] [address]- 7978 Jan, [facility] [place] [facility] [address] [id number] [place] [address]- 0263 Dec, [facility] [place] [facility] [address] [id number] [place] [address]- 0222 Dec, [facility] [place] [facility] [address] [id number] [place] [address]- 2996 Dec, [facility] [place] [facility] [address] [id number] [place] [address]- 9594 Dec, [facility] [place] [facility] [address] [id number] [place] [address]- 4343 Dec, [facility] [place] [facility] [address] [id number] [place] [address]- 6382 Dec, 2013 [facility] [place] [facility] [address] [id number] [place] [address]- 7016 Dec, 2013 [facility] [place] [facility] [address] [id number] [place] [address]- 0219 Dec, 2013 [facility] [place] [facility] [address] [id number] [place] [address]- 2709 Dec, [facility] [place] [facility] [address] [id number] [place] [address]- 4978 Dec, [facility] [place] [facility] [address] [id number] [place] [address]- 8127 Nov, [facility] [place] [facility] [address] [id number] [place] [address]- 7139 Nov, [facility] [place] [facility] [address] [id number] [place] [address]- 8031 Nov, [facility] [place] [facility] [address] [id number] [place] [address]- 0167 Nov, [facility] [place] [facility] [address] [id number] [place] [address]- 4257 Nov, [facility] [place] [facility] [address] [id number] [place] [address]- 7400 Nov, [facility] [place] [facility] [address] [id number] [place] [address]- 6528 Nov, [facility] [place] [facility] [address] [id number] [place] [address]- 8572 Nov, [facility] [place] [facility] [address] [id number] [place] [address]- 6768 Nov, [facility] [place] [facility] [address] [id number] [place] [address]- 7826 Nov, [facility] [place] [facility] [address] [id number] [place] [address]- 7816 Nov, [facility] [place] [facility] [address] [id number] [place] [address]- 9248 Nov, [facility] [place] [facility] [address] [id number] [place] [address]- 3436 Nov, [facility] [place] [facility] [address] [id number] [place] [address]- 9974 Nov, [facility] [place] [facility] [address] [id number] [place] [address]- 0636 October, [facility] [place] [facility] [address] [id number] [place] [address]- 5248 October, [facility] [place] [facility] [address] [id number] [place] [address]- 7965 October, [facility] [place] [facility] [address] [id number] [place] [address]- 1048 October, [facility] [place] [facility] [address] [id number] [place] [address]- 6119 October, [facility] [place] [facility] [address] [id number] [place] [address]- 9836 October, [facility] [place] [facility] [address] [id number] [place] [address]- 1100 October, [facility] [place] [facility] [address] [id number] [place] [address]- 3397 October, [facility] [place] [facility] [address] [id number] [place] [address]- 5361 October, [facility] [place] [facility] [address] [id number] [place] [address]- 4309 October, [facility] [place] [facility] [address] [id number] [place] [address]- 1855 Sep, [facility] [place] [facility] [address] [id number] [place] [address]- 4164 Sep, [facility] [place] [facility] [address] [id number] [place] [address]- 7530 14 Sep, 2013 [facility] [place] [facility] [address] [id number] [place] [address]- 6281 14 Sep, 2013 [facility] [place] [facility] [address] [id number] [place] [address]- 4826 14 Sep, 2013 [facility] [place] [facility] [address] [id number] [place] [address]- 2551 Sep, [facility] [place] [facility] [address] [id number] [place] [address]- 3696 Sep, [facility] [place] [facility] [address] [id number] [place] [address]- 4444 Sep, [facility] [place] [facility] [address] [id number] [place] [address]- 4483 Sep, [facility] [place] [facility] [address] [id number] [place] [address]- 0386 Sep, [facility] [place] [facility] [address] [id number] [place] [address]- 0503 Aug, [facility] [place] [facility] [address] [id number] [place] [address]- 2786 Aug, [facility] [place] [facility] [address] [id number] [place] [address]- 9320 Aug, [facility] [place] [facility] [address] [id number] [place] [address]- 1857 Aug, [facility] [place] [facility] [address] [id number] [place] [address]- 2113 Aug, [facility] [place] [facility] [address] [id number] [place] [address]- 2962 Aug, [facility] [place] [facility] [address] [id number] [place] [address]- 0699 05 Aug, 2013 [facility] [place] [facility] [address] [id number] [place] [address]- 2394 Aug, [facility] [place] [facility] [address] [id number] [place] [address]- 3412 Aug, [facility] [place] [facility] [address] [id number] [place] [address]- 1806 Jul, [facility] [place] [facility] [address] [id number] [place] [address]- 8076 Jul, [facility] [place] [facility] [address] [id number] [place] [address]- 1150 Jul, [facility] [place] [facility] [address] [id number] [place] [address]- 4663 Jul, [facility] [place] [facility] [address] [id number] [place] [address]- 1456 Jul, [facility] [place] [facility] [address] [facility] [id number] [place] [address]- 7202 Jul, [facility] [place] [facility] [address] [id number] [place] [address]- 6049 Jul, [facility] [place] [facility] [address] [id number] [place] [address]- 4593 Jul, [facility] [place] [facility] [address] [facility] [id number] [place] [address]- 0224 Jul, [facility] [place] [facility] [address] [facility] [id number] [place] [address]- 7237 Jul, [facility] [place] [facility] [address] [id number] [place] [address]- 7105 Jul, [facility] [place] [facility] [address] [id number] [place] [address]- 1015 Jul, [facility] [place] [facility] [address] [id number] [place] [address]- 1731 Jul, [facility] [place] [facility] [address] [facility] [id number] [place] [address]- 9156 Jul, [facility] [place] [facility] [address] [id number] [place] [address]- 1815 Jul, [facility] [address] [id number] [place] [address]- 6033 Jul, [facility] [address] [id number] [place] [address]- 0414 Jun, [facility] [address] [id number] [place] [address]- 4987 Jun, [facility] [address] [id number] [place] [address]- 5142 Jun, [facility] [address] [id number] [place] [address]- 3817 Jun, [facility] [address] [id number] [place] [address]- 0195 Jun, [facility] [address] [id number] [place] [address]- 0218 Jun, [facility] [address] [id number] [place] [address]- 8223 May, [facility] [address] [id number] [place] [address]- 9472 May, [facility] [address] [id number] [place] [address]- 9881 May, [facility] [address] [id number] [place] [address]- 7728 May, [facility] [address] [id number] [place] [address]- 1336 Apr, [facility] [place] [facility] [address] [id number] [place] [address]- 7234 Apr, [facility] [address] [id number] [place] [address]- 4030 Apr, [facility] [address] [id number] [id number] 2459 Apr, [facility] [place] [facility] [address] [id number] [place] [address]- 2757 Apr, [facility] [place] [facility] [address] [id number] [place] [address]- 3143 Apr, [facility] [place] [facility] [address] [id number] [place] [address]- 5944 Apr, [facility] [place] [facility] [address] [id number] [place] [address]- 8740 Apr, [facility] [place] [facility] [address] [id number] [place] [address]- 1775 Apr, [facility] [place] [facility] [address] [id number] [place] [address]- 0018 Apr, [facility] [place] [facility] [address] [id number] [place] [address]- 6528 Apr, [facility] [place] [facility] [address] [id number] [place] [address]- 4823 Apr, [facility] [place] [facility] [address] [id number] [place] [address]- 6709 Mar, [facility] [place] [facility] [address] [id number], [place] [address]- 1252 28 Mar, 2013 [facility] [place] [facility] [address] [id number], [place] [address]- 7324 16 Mar, 2013 [facility] [place] [facility] [address] [id number], [place] [address]- 1602 16 Mar, 2013 [facility] [place] [facility] [address] [id number] [place] [address]- 6903 15 Mar, 2013 [facility] [place] [facility] [address] [id number], [place] [address]- 4760 15 Mar, 2013 [facility] [place] [facility] [address] [id number] [place] [address]- 4261 27 Feb, 2013 [facility] [place] [facility] [address] [id number] [place] [address]- 8518 25 Feb, 2012 [facility] [place] [facility] [address] [id number] [place] [address]- 6046 25 Feb, 2012 [facility] [place] [facility] [address] [id number] [place] [address]- 3536 23 Feb, 2013 [facility] [place] [facility] [address] [id number] [place] [address]- 3166 17 Feb, 2013 [facility] [place] [facility] [address] [id number] [place] [address]- 3718 10 Feb, 2013 [facility] [place] [facility] [address] [id number] [place] [address]- 3373 04 Feb, 2013 [facility] [place] [facility] [address] [id number] [place] [address] 30 Jan, 2013 [facility] [place] [facility] [address] [id number] [place] [address] Jan, [facility] [place] [facility] [address] [id number] [place] [address] Jan, [facility] [place] [facility] [address] [id number] [place] [address] Jan, [facility] [place] [facility] [address] [id number] [place] [address] Jan, [facility] [place] [facility] [address] [id number] [place] [address] Jan, [facility] [place] [facility] [address] [id number] [place] [address] Jan, [facility] [place] [facility] [address] [id number] [place] [address] Dec, [facility] [place] [facility] [address] [id number] [place] [address] Dec, [facility] [place] [facility] [address] [id number] [place] [address] Dec, [facility] [place] [facility] [address] [id number] [place] [address] Dec, [facility] [place] [facility] [address] [id number] [place] [address] Dec, [facility] [place] [facility] [address] [id number] [place] [address] Dec, [facility] [place] [facility] [address] [id number] [place] [address] Nov, [facility] [place] [facility] [address] [id number] [place] [address] Nov, [facility] [place] [facility] [address] [id number] [place] [address] Nov, [facility] [place] [facility] [address] [id number] [place] [address]206 Nov, [facility] [place] [facility] [address] [id number] [place] [address] October, [facility] [place] [facility] [address] [id number] [place] [address] October, [facility] [place] [facility] [address] [id number] [place] [address] October, [facility] [place] [facility] [address] [id number] [place] [address] 132[address] October, [facility] [place] [facility] [address] [id number] [place] [address]- [address] 30 Sep, 2012 [facility] [place] [facility] [address] [id number] [place] [address]- 9666 19 Sep, 2012 [facility] [place] [facility] [address] [id number] [place] [address] 3681 16 Sep, 2012 [facility] [place] [facility] [address] [id number] [place] [address]- 7747 12 Sep, 2012 [facility] [place] [facility] [address] [id number] [place] [address]107 Sep, [facility] [address] [id number] [place] [address] 459[address] Sep, [facility] [place] [facility] [address] [id number] [place] [address] 0[address] Sep, [facility] [place] [facility] [address] [facility] [id number] [place] [address] Sep, [facility] [place] [facility] [address] [id number] [place] [address] Aug, [facility] [place] [facility] [address] [id number] [place] [address]- 1254 Aug, [facility] [place] [facility] [address] [id number] [place] [address] 1435 Aug, [facility] [place] [facility] [address] [id number] [place] [address] 0883 18 Jul, 2012 [facility] [place] [facility] [address] [id number] [place] [address]- 9984 08 Jul, 2012 [facility] [place] [facility] [address] [id number] [place] [address] Jul, [facility] [place] [facility] [address] [id number] [place] [address]- 3[address] Jul, [facility] [place] [facility] [address] [id number], [place] [address] 05 Jul, 2012 [facility] [place] [facility] [address] [id number], [place] [address] Jun, [facility] [place] [facility] [address] [id number] [place] [address] 6226 Jun, [facility] [place] [facility] [address] [id number] [place] [address] Jun, [facility] [place] [facility] [address] [id number] [place] [address] 2966 May, [facility] [place] [facility] [address] [id number] [place] [address]- 2064 11 May, 2012 [facility] [place] [facility] [address] [id number] [place] [address] May, [facility] [place] [facility] [address] [id number] [place] [address]- 3756 May, [facility] [place] [facility] [address] [id number] [place] [address]- 0316 May, [facility] [place] [facility] [address] [id number] [place] [address]- 0376 May, [facility] [place] [facility] [address] [id number] [place] [address]- 1284 May, [facility] [place] [facility] [address] [id number] [place] [address]- 1590 Apr, [facility] [place] [facility] [address] [id number] [place] [address] 99[address] Apr, [facility] [place] [facility] [address] [id number] [place] [address]28 Apr, [facility] [place] [facility] [address] [id number] [place] [address]- 8293 Apr, [facility] [place] [facility] [address] [id number] [place] [address] Apr, [facility] [place] [facility] [address] [id number] [place] [address]- 9923 Apr, [facility] [place] [facility] [address] [id number] [place] [address]- 6316 Apr, [facility] [place] [facility] [address] [id number] [place] [address]- 1423 Apr, [facility] [place] [facility] [address] [id number] [place] [address]- 1068 Apr, [facility] [place] [facility] [address] [id number] [place] [address]- 8731 Apr, [facility] [place] [facility] [address] [id number] [place] [address]- 6110 Apr, [facility] [place] [facility] [address] [id number] [place] [address] 9389 Mar, [facility] [place] [facility] [address] [id number] [place] [address] 68[address] Mar, [facility] [place] [facility] [address] [id number] [place] [address]- 0925 Mar, [facility] [place] [facility] [address] [id number] [place] [address]- 5865 Mar, [facility] [place] [facility] [address] [id number] [place] [address]- 9298 Mar, [facility] [place] [facility] [address] [id number] [place] [address]- 4080 Mar, [facility] [place] [facility] [address] [id number], [place] [address] Mar, [facility] [place] [facility] [address] [id number] [place] [address]- 8931 Mar, [facility] [place] [facility] [address] [id number], [place] [address] 9187 Mar, [facility] [place] [facility] [address] [id number], [place] [address] 3905 Mar, [facility] [place] [facility] [address] [id number], [place] [address] 4833 Mar, [facility] [place] [facility] [address] [id number] [place] [address]- [address]407 2012 [facility] [place] [facility] [address] [id number], [place] [address] 27 Feb, 2012 [facility] [place] [facility] [address] [id number] [place] [address] 27 Feb, 2012 [facility] [place] [facility] [address] [id number] [place] [address] 26 Feb, 2012 [facility] [place] [facility] [address] [id number] [place] [address] 24 Feb, 2012 [facility] [place] [facility] [address] [id number] [place] [address] Feb, [facility] [place] [facility] [address] [id number] [place] [address] Feb, [facility] [place] [facility] [address] [id number] [place] [address] 25[address] Feb, [facility] [place] [facility] [address] [id number] [place] [address] Feb, [facility] [place] [facility] [address] [id number] [place] [address] 14[address] Jan, [facility] [place] [facility] [address] [id number] [place] [address] Jan, [facility] [place] [facility] [address] [id number] [place] [address] 17[address] Jan, [facility] [place] [facility] [address] [id number] [place] [address] 59[address] Jan, [facility] [place] [facility] [address] [id number] [place] [address] 24[address] Dec, [facility] [place] [facility] [address] [id number] [place] [address] Dec, [facility] [place] [facility] [address] [id number] [place] [address] 25[address] Dec, [facility] [place] [facility] [address] [id number] [place] [address] 1496 Dec, [facility] [place] [facility] [address] [id number] [place] [address] 1786 Dec, [facility] [place] [facility] [address] [id number] [place] [address] 77[address] Dec, [facility] [place] [facility] [address] [id number] [place] [address] Dec, [facility] [place] [facility] [address] [id number] [place] [address] Dec, [facility] [place] [facility] [address] [id number] [place] [address] Dec, [facility] [place] [facility] [address] [id number] [place] [address] 6[address] Dec, [facility] [place] [facility] [address] [id number] [place] [address] Dec, [facility] [place] [facility] [address] [id number] [place] [address] 9151 Dec, [facility] [place] [facility] [address] [id number] [place] [address] 4310 Dec, [facility] [place] [facility] [address] [id number] [place] [address] 8777 Dec, [facility] [place] [facility] [address] [id number] [place] [address] 2[address] Nov, [facility] [place] [facility] [address] [id number] [place] [address] 1415 Nov, [facility] [place] [facility] [address] [id number] [place] [address] 48[address] Nov, [facility] [place] [facility] [address] [id number] [place] [address] Nov, [facility] [place] [facility] [address] [id number] [place] [address] 5[address] Nov, [facility] [place] [facility] [address] [id number] [place] [address] 350[address] Nov, [facility] [place] [facility] [address] [id number] [place] [address] 5697 October, [facility] [place] [facility] [address] [id number] [place] [address] 74[address] October, [facility] [place] [facility] [address] [id number] [place] [address] 2178 October, [facility] [place] [facility] [address] [id number] [place] [address]- 1026 October, [facility] [place] [facility] [address] [id number] [place] [address] Sep, [facility] [place] [facility] [address] [id number] [place] [address] 39[address] Sep, [facility] [place] [facility] [address] [id number] [place] [address] Sep, [facility] [place] [facility] [address] [id number] [place] [address] 0[address] Sep, [facility] [place] [facility] [address] [id number] [place] [address] 57[address] Sep, [facility] [place] [facility] [address] [id number] [place] [address] 2408 Aug, [facility] [place] [facility] [address] [id number] [place] [address] 1261 Aug, [facility] [place] [facility] [address] [id number] [place] [address] 9324 Aug, [facility] [place] [facility] [address] [id number] [place] [address] 8270 Aug, [facility] [place] [facility] [address] [id number] [place] [address] 7[address] Aug, [facility] [place] [facility] [address] [id number] [place] [address] 8948 Aug, [facility] [place] [facility] [address] [id number] [place] [address] 9446 Aug, [facility] [place] [facility] [address] [id number] [place] [address] 1516 16 Jul, 2011 [facility] [place] [facility] [address] [facility] [id number], [place] [address] 16 Jul, 2011 [facility] [address] [id number] [place] [address] Jul, [facility] [address] [facility] [id number] [place] [address] Jul, [facility] [address] [facility] [id number] [place] [address] 7964 Jun, [facility] [address] [id number] Jun, [facility] [address] [id number] [place] [address] 266[address] Jun, [facility] [address] [facility] [id number] [place] [address] 9146 Jun, [facility] [address] [id number] [place] [address] Jun, [facility] [address] [facility] [id number], [place] [address] Jun, [facility] [address] [id number] [place] [address] 2131 Jun, [facility] [address] [id number], [place] [address] Jun, [facility] [address] [id number] [place] [address] 4[address] May, [facility] [address] [facility] [id number], [place] [address] May, [facility] [address] [facility] [id number] [place] [address]- 2044 May, [facility] [address] [facility] [id number] [place] [address]- 6183 May, [facility] [address] [facility] [id number], [place] [address]- 0[address] May, [facility] [place] [facility] [address] [id number] [place] [address]- 8867 May, [facility] [place] [facility] [address] [id number] [place] [address]- 9975 May, [facility] [place] [facility] [address] [id number] [place] [address]- 9699 Apr, [facility] [place] [facility] [address] [id number] [place] [address]- 8086 Apr, [facility] [place] [facility] [address] [id number] [place] [address]- 2742 Apr, [facility] [place] [facility] [address] [id number] [place] [address]- 2504 Mar, [facility] [place] [facility] [address] [id number] [place] [address]- 0072 Mar, [facility] [place] [facility] [address] [id number] [place] [address]- 6073 14 Mar, 2011 [facility] [place] [facility] [address] [id number] [place] [address]- 8392 Mar, [facility] [place] [facility] [address] [id number] [place] [address]- 4413 Mar, [facility] [place] [facility] [address] [id number] [place] [address]- 0597 Mar, [facility] [place] [facility] [address] [id number] [place] [address]- 3695 Mar, [facility] [place] [facility] [address] [id number] [place] [address]- 4885 Jan, [facility] [place] [facility] [address] [id number] [place] [address]- 2513 May, [facility] [place] [facility] [address] [id number] [place] [address]- 8023 May, [facility] [place] [facility] [address] [id number] [place] [address]- 8931 13 May, 2010 [facility] [place] [facility] [address] [id number] [place] [address]- 1896 13 May, 2010 [facility] [place] [facility] [address] [id number] [place] [address]- 9108 10 May, 2010 [facility] [place] [facility] [address] [facility] [id number] [place] [address]- 1837 06 May, 2010 [facility] [place] [facility] [address] [id number], [place] [address]- 7570 29 Apr, 2010 [facility] [place] [facility] [address] [id number] [place] [address]- 4856 26 Apr, 2010 [facility] [place] [facility] [address] [id number], [place] [address]- 1062 Apr, [facility] [place] [facility] [address] [id number] [place] [address]- 9209 18 Apr, 2010 [facility] [place] [facility] [address] [id number], [place] [address]- 0762 15 Apr, 2010 [facility] [place] [facility] [address] [id number], [place] [address]- 7809 Apr, [facility] [place] [facility] [address] [id number], [place] [address]- 3636 Apr, [facility] [place] [facility] [address] [id number], [place] [address]- 5882 05 Apr, 2010 [facility] [place] [facility] [address] [id number], [place] [address]- 3950 05 Apr, 2010 [facility] [place] [facility] [address] [id number], [place] [address]- 2125 Apr, [facility] [place] [facility] [address] [id number], [place] [address]- 5856 Mar, [facility] [place] [facility] [address] [id number], [place] [address]- 9724 Mar, [facility] [place] [facility] [address] [facility] [id number] [place] [address]- 4412 Mar, [facility] [address] [facility] [id number][place] [address] Mar, [facility] [address] [facility] [id number], [place] [address]- 6763 Mar, [facility] [address] [facility] [id number], [place] [address]- 1411 Dec, [facility] [address] [facility] [id number][place] [id number] Nov, IMMUNIZATIONS No Known Immunizations SOCIAL HISTORY Never Assessed REASON FOR VISIT Controlled Med Refill PLAN OF CARE VITAL SIGNS MEDICATIONS Unknown [...] 12/2016 Hospitalization History seizers-VC 08/2017 Hospitalization History [facility] 01/2018
--- OUTSIDE RECORDS SUMMARY | 2018-07-05 14:45 | XMS REPORT ---
Author Author NAHOMY BETH Organization [facility] Address [address] [place] [address] Care Team Providers Care Quantitative Strategy Analyst Name Role Phone NAHOMY BETH Unavailable PROBLEMS Type Condition ICD9-CM Code PSF54-CJ Code Onset Dates Condition Status SNOMED Code Problem Anemia, unspecified type D64.9 Active 198556198 Problem Personality disorder F60.9 Active 57119404 Problem Factitious disorder imposed on self, recurrent episode F68.10 Active 28326975 Problem Ventral hernia without obstruction or gangrene K43.9 Active 838215227 Problem Allergic state, subsequent encounter T78.40XD Active 714772942 Problem Anxiety F41.9 Active 77229374 Problem Age-related osteoporosis without current pathological fracture M81.0 Active 81207637 Problem Unspecified psychosis not due to a substance or known physiological condition F29 Active 42059834 Problem Iron deficiency anemia, unspecified iron deficiency anemia type D50.9 Active 48567934 Problem History of CVA with residual deficit I69.30 Active 328713839 Problem Seizure disorder G40.909 Active 532485811 Problem Perennial allergic rhinitis, unspecified allergic rhinitis trigger J30.89 Active 555785838 Problem Chronic kidney disease, unspecified stage N18.9 Active 491449124 Problem Back pain M54.9 Active 091306708 Problem Gastroesophageal reflux disease without esophagitis K21.9 Active 247076429 Problem Insomnia, unspecified type G47.00 Active 770458694 Problem History of colon polyps Z86.010 Active 794820028 ALLERGIES No Information ENCOUNTERS Encounter Location Date Diagnosis [facility] [address] [facility] [id number], [place] [address] Apr, [facility] [address] [facility] [id number], [place] [address] 3915 Apr, Back pain M54.9 [facility] [address], [place] [address] 5537 Apr, Age-related osteoporosis without current pathological fracture M81.0 [facility] [id number] [place] [address] 46217- 7939 Apr, [facility] [address], [place] [id number] Apr, Other specified postprocedural states Z98.890 [facility] [id number] [place] [address] 20480- 5204 Mar, Back pain M54.9 [facility] [id number] [place] [address] 26806- 3542 Mar, [facility] [id number] [place] [address] 58206- 3068 Mar, [facility] [id number] [place] [address] 94323- 1726 Mar, [facility] [id number] [place] [address] 10480- 8307 Mar, Back pain M54.9 [facility] [id number] [place] [address] 99787- 4034 Mar, Back pain M54.9 and Encounter for immunization Z23 [facility] [address] [id number], [place] [address] 7831 Feb, [facility] [id number] [place] [address] 03855- 5471 Feb, Unspecified psychosis not due to a substance or known physiological condition F29 ; Personality disorder F60.9 and Factitious disorder imposed on self, recurrent episode F68.10 [facility] [address], [place] [address] 0004 Feb, Back pain M54.9 [facility] [address], [place] [address]- 0748 Jan, Unspecified psychosis not due to a substance or known physiological condition F29 ; Personality disorder F60.9 and Factitious disorder imposed on self, recurrent episode F68.10 [facility] [id number] [place] [address] 16609- 4764 Jan, [facility] [id number] [place] [address] 94974- 6528 Jan, Back pain M54.9 and Seizure disorder G40.909 [facility] [id number] [place] [address] 20574- 6560 Jan, Back pain M54.9 [facility] [id number] [place] [address] 48067- 5326 Jan, Back pain M54.9 [facility] [id number] [place] [address] 97951- 6049 Jan, [facility] [id number] [place] [address] 05438- 4981 Jan, Unspecified psychosis not due to a substance or known physiological condition F29 ; Personality disorder F60.9 and Factitious disorder imposed on self, recurrent episode F68.10 [facility] [id number] [place] [address] 44222- 5278 Dec, Back pain M54.9 ; Seizure disorder G40.909 ; Ventral hernia without obstruction or gangrene K43.9 and History of CVA with residual deficit I69.30 [facility] [id number] [place] [address] 68088- 9783 Dec, Unspecified psychosis not due to a substance or known physiological condition F29 ; Personality disorder F60.9 and Factitious disorder imposed on self, recurrent episode F68.10 [facility] [id number] [place] [address] 89476- 3164 Dec, [facility] [id number] [place] [address] 20187- 0144 Dec, Back pain M54.9 [facility] [id number] [place] [address] 74978- 8340 Dec, Factitious disorder imposed on self, recurrent episode F68.10 ; Personality disorder F60.9 ; Insomnia, unspecified type G47.00 and Anxiety F41.9 [facility] [id number] [place] [address] 67932- 0358 Nov, Unspecified psychosis not due to a substance or known physiological condition F29 ; Personality disorder F60.9 and Factitious disorder imposed on self, recurrent episode F68.10 [facility] [facility] [id number] [place] [address] 36221- 0897 Nov, Back pain M54.9 [facility] [id number] [place] [address] 95301- 0485 Nov, Unspecified psychosis not due to a substance or known physiological condition F29 ; Personality disorder F60.9 and Factitious disorder imposed on self, recurrent episode F68.10 [facility] [id number] [place] [address] 47677- 0847 October, [facility] [id number] [place] [address] 79410- 1650 October, [facility] [id number] [place] [address] 58052- 7957 October, Unspecified psychosis not due to a substance or known physiological condition F29 ; Personality disorder F60.9 and Factitious disorder imposed on self, recurrent episode F68.10 [facility] [id number] [place] [address] 41931- 2189 October, Back pain M54.9 [facility] [id number] [place] [address] 57429- 8676 October, Seizure disorder G40.909 ; Back pain M54.9 and Allergic state, subsequent encounter T78.40XD [facility] [id number] [place] [address] 13531- 7876 October, [facility] [address], [place] [address]- 6850 Sep, Back pain M54.9 [facility] [id number] [place] [address] 09805- 6009 Sep, Unspecified psychosis not due to a substance or known physiological condition F29 ; Personality disorder F60.9 and Factitious disorder imposed on self, recurrent episode F68.10 [facility] [id number] [place] [address] 02975- 0608 Sep, [facility] [id number] [place] [address] 61400- 5664 Sep, [facility] [id number] [place] [address] 84711- 1756 Sep, [facility] [id number] [place] [address] 80128- 3054 Sep, [facility] [id number] [place] [address] 86009- 3679 Aug, [facility] [id number] [place] [address] 80817- 8746 Aug, Back pain M54.9 [facility] [id number] [place] [address] 09582- 6012 Aug, Factitious disorder imposed on self, recurrent episode F68.10 ; Personality disorder F60.9 ; Insomnia, unspecified type G47.00 and Anxiety F41.9 [facility] [address], [place] [address]- 5321 Aug, Back pain M54.9 ; Iron deficiency anemia, unspecified iron deficiency anemia type D50.9 ; Chronic kidney disease, unspecified stage N18.9 and Breast cancer screening Z12.31 [facility] [address] [id number] [id number] Jul, Back pain M54.9 [facility] [id number] [place] [address] [id number] Jul, [facility] [address] [id number] [id number] Jul, [facility] [id number] [id number] Jun, Back pain M54.9 [facility] [id number] [id number] Jun, [facility] [id number] [place] [address] [id number] Jun, Back pain M54.9 [facility] [address] [id number], [place] [address]- 3953 Jun, Back pain M54.9 ; Seizure disorder G40.909 and Age-related osteoporosis without current pathological fracture M81.0 [facility] [id number] [id number] May, [facility] [id number] [place] [address] 203606- 5162 May, Back pain M54.9 [facility] [id number] [place] [address] 40669- 7952 Apr, Back pain M54.9 ; Encounter for immunization Z23 ; Gastroesophageal reflux disease without esophagitis K21.9 ; Age-related osteoporosis without current pathological fracture M81.0 and Chronic pruritus L29.9 [facility] [address] [id number] [address]- 0761 Apr, History of CVA with residual deficit I69.30 [facility] [address] [id number] [address] 1141 Apr, Factitious disorder imposed on self, recurrent episode F68.10 and Personality disorder F60.9 [facility] [id number] [id number] 08 Apr, 2017 Back pain M54.9 [facility] [address] [id number], [place] [address]- 0212 Mar, Factitious disorder imposed on self, recurrent episode F68.10 [facility] [id number] [place] [address] 51448- 2728 Mar, [facility] [id number] [place] [address] [id number] Mar, [facility] [id number] [place] [address] [id number] Mar, Back pain M54.9 [facility] [id number] [place] [address] 81352- 9101 Mar, Back pain M54.9 ; Seizure disorder G40.909 and Age-related osteoporosis without current pathological fracture M81.0 [place] [id number] [place] [address] 23142- 9691 Feb, History of CVA with residual deficit I69.30 [facility] [facility] [id number] [place] [address] 96767- 9396 Feb, Factitious disorder imposed on self, recurrent episode F68.10 and Personality disorder F60.9 [place] [facility] [id number] [place] [address] 97559- 2287 Feb, Back pain M54.9 [facility] [id number] [place] [address] 92802- 3836 Feb, [place] [id number] [place] [address] 63230- 5274 Jan, [facility] [address] [id number] Jan, Age- related osteoporosis without current pathological fracture M81.0 and Allergic state, subsequent encounter T78.40XD [facility] [address] [place] [address] 65161- 7466 Jan, Factitious disorder imposed on self, recurrent episode F68.10 and Personality disorder F60.9 [facility] [id number] [place] [address] 35999- 5137 Dec, Back pain M54.9 [facility] [address], [place] [address]- 6389 Dec, Personality disorder F60.9 and Factitious disorder imposed on self, recurrent episode F68.10 [facility] [id number] [id number] Dec, Back pain M54.9 [facility] [id number] [place] [address] [id number] Dec, [facility] [id number] [place] [address] [id number] Dec, [facility] [id number] [place] [address] 06842- 6082 Dec, [facility] [id number] [place] [address] 08126- 3394 Nov, [facility] [id number] [place] [address] 19624- 0237 Nov, Back pain M54.9 ; Anemia, unspecified type D64.9 and History of colon polyps Z86.010 [facility] [id number] [place] [address] 16142- 2552 Nov, Back pain M54.9 [facility] [id number] [place] [address] [id number] October, Back pain M54.9 [facility] [address] [id number] October, Back pain M54.9 and Gastroesophageal reflux disease without esophagitis K21.9 [facility] [id number] [place] [address] [id number] Sep, [facility] [id number] [place] [address] 11305- 2813 Sep, [facility] [address], [place] [address]- 5826 Sep, [facility] [address], [place] [address]- 4651 Sep, [facility] [address], [place] [address]- 5569 Sep, [facility] [address], [place] [address]- 0470 Sep, Seizure disorder G40.909 [facility] [address]65[address], [place] [address]- 4843 Sep, Back pain M54.9 [facility] [address]65[address], [place] [address]- 9773 Sep, [facility] [id number] [place] [address] 98898- 5660 Aug, Back pain M54.9 [facility] [address], [place] [address]- 5125 Aug, Seizure disorder G40.909 [facility] [id number] [id number] Aug, [facility] [id number] [place] [address] [id number] Aug, 2016 Back pain M54.9 [facility] [id number] [id number] Aug, Back pain M54.9 [facility] [address] [id number] [id number] 06 Aug, 2016 Back pain M54.9 [facility] [address] [id number] Jul, Weakness R53.1 [facility] [address], [place] [address]- 1280 Jul, Seizure disorder G40.909 [facility] [address], [place] [address]- 5884 Jul, [facility] [address], [place] [address]- 6400 Jul, Breast cancer screening Z12.39 [facility] [id number] [place] [address] 56400- 9647 Jul, [facility] [id number] [place] [address] 99694- 1182 Jul, [facility] [id number] [place] [address] 46512- 1772 Jul, [facility] [address] [place] [address] 87296- 7476 Jul, Seizure disorder G40.909 ; Fatigue, unspecified type R53.83 ; Perennial allergic rhinitis, unspecified allergic rhinitis trigger J30.89 and Chronic kidney disease, unspecified stage N18.9 [facility] [id number] [place] [address] 61123- 2370 Jul, [facility] [address] [place] [address] 41218- 6136 Jul, Seizure disorder G40.909 [facility] [id number] [place] [address] 61950- 9197 Jun, [facility] [id number] [place] [address] 25218- 2327 Jun, [facility] and [address] [id number] Jun, Perennial allergic rhinitis, unspecified allergic rhinitis trigger J30.89 [facility] [address] [id number] [id number] Jun, [facility] [id number] [place] [address] 54226- 4704 Jun, Seizure disorder G40.909 [facility] [address] [id number] [id number] Jun, [facility] [id number] [place] [address] [id number] May, [facility] [address], [place] [address]- 2660 May, [facility] [id number] [place] [address] 78901- 4105 May, [facility] [id number] [place] [address] 32121- 1810 May, [facility] [id number] [place] [address] 58416- 6490 May, History of CVA with residual deficit I69.30 [facility] [id number] [place] [address] 02742- 2718 May, [facility] [id number] [place] [address] 31627- 0389 May, [facility] [id number] [place] [address] 64615- 3845 May, [facility] [id number] [place] [address] 20683- 9414 May, Seizure disorder G40.909 [facility] [address] [place] [address] 28267- 1707 May, [email or web address] [address] [place] [address] May, Back pain M54.9 and Seizure disorder G40.909 [facility] [id number] [place] [address] 54729- 0739 Apr, [facility] [id number] [place] [address] 74518- 4321 Apr, Back pain M54.9 [facility] [id number] [place] [address] 22765- 2196 Mar, [employer] [email or web address] [address] [place] [address] Mar, Insomnia, unspecified type G47.00 [facility] [address] [id number], [place] [address]- 1713 Mar, [facility] [address] [facility] [id number], [place] [address]- 3099 Feb, [facility] [address] [facility] [id number], [place] [address]- 3635 Feb, [facility] [address] [facility] [id number], [place] [address]- 4603 Feb, [facility] [address] [facility] [id number], [place] [address]- 2783 Jan, [facility] [address] [facility] [id number] [place] [address] 73505- 6820 Jan, [facility] [address] [address] Jan, Seizure disorder G40.909 and Back pain M54.9 [facility] [address] [facility] [id number], [place] [address]- 3972 Dec, [facility] [address] [facility] [id number], [place] [address]- 9717 Dec, [facility] [address] [facility] [id number], [place] [address]- 9730 Dec, [facility] [address] [id number], [place] [address]- 9437 Nov, [facility] [address] [facility] [id number], [place] [address]- 6441 Nov, [facility] [address] [facility] [id number], [place] [address]- 1764 Nov, Back pain M54.9 [facility] [address] [facility] [id number], [place] [address]- 7486 October, [facility] [address] [facility] [id number], [place] [address]- 9729 October, Back pain M54.9 [facility] [id number] [place] [address] 41989- 4805 October, Seizure disorder G40.909 and B12 deficiency E53.8 [facility] [id number] [place] [address]- [address] Sep, History of CVA with residual deficit I69.30 [facility] [id number] [place] [address]689- [address] Sep, [facility] [address] [address] Sep, [facility] [id number] [place] [address]- 9969 Sep, Back pain M54.9 [facility] [id number] [place] [address] 26064- [address]266 Sep, Seizure disorder G40.909 [facility] [address] [address] Aug, Back pain M54.9 [facility] [id number] [place] [address]- [address] 18 Aug, 2015 Seizure disorder G40.909 [facility] [id number] [place] [address] 09950- 10[address] 16 Aug, 2015 Back pain M54.9 [facility] [id number] [place] [address] 22866- 7346 14 Aug, 2015 Heart failure, unspecified I50.9 [facility] [id number] [place] [address]- 9883 14 Aug, 2015 Medication monitoring encounter Z51.81 [facility] [address] [address] 15 Jul, 2015 [facility] [id number] [place] [address] 7[address]11- 7238 09 Jul, 2015 Seizure disorder G40.909 [facility] [address] [place] [address] Jul, Back pain M54.9 [facility] [id number] [place] [address] 16658- 9841 Jun, [facility] [id number] [place] [address] 13272- 7410 Jun, [facility] [id number] [place] [address] 53253- 8526 Jun, Mental status change R41.82 ; History of CVA with residual deficit I69.30 ; Back pain M54.9 and Seizure disorder G40.909 [facility] [id number] [place] [address] 28871- 4205 Jun, [facility] [id number] [place] [address] 46470- 7279 May, [facility] [id number] [place] [address] 82939- 7765 Apr, [facility] [id number] [place] [address] 37671- 7627 Apr, Medication monitoring encounter Z51.81 [facility] [id number] [place] [address] 18364- 0869 Mar, Vomiting R11.10 [facility] [id number] [place] [address] 44155- 8935 Mar, [facility] [id number] [place] [address] 91689- 9833 18 Feb, 2015 [facility] [id number] [place] [address] 80013- 0940 10 Feb, 2015 UTI (urinary tract infection) 599.0 [facility] [address] [address] 8651 Jan, [facility] [id number] [place] [address] 19622- 1278 Jan, [facility] [place] [facility] [address] [id number] [place] [address]- 2368 Jan, [facility] [place] [facility] [address] [id number] [place] [address]- 5314 Dec, [facility] [place] [facility] [address] [id number] [place] [address]- 3554 Dec, [facility] [place] [facility] [address] [id number] [place] [address]- 2283 Dec, [facility] [place] [facility] [address] [id number] [place] [address]- 3729 Dec, [facility] [place] [facility] [address] [id number] [place] [address]- 8193 Nov, UNKNOWN Nov, [facility] [place] [facility] [address] [id number] [place] [address]- 0256 October, [facility] [place] [facility] [address] [id number] [place] [address]- 3889 Sep, [facility] [place] [facility] [address] [id number] [place] [address]- 1155 Sep, [facility] [place] [facility] [address] [id number] [place] [address]- 6058 Aug, [facility] [place] [facility] [address] [id number] [place] [address]- 9586 Aug, [facility] [place] [facility] [address] [id number] [place] [address]- 4607 Jul, [facility] [place] [facility] [address] [id number] [place] [address]- 7815 Jul, [facility] [place] [facility] [address] [id number] [place] [address]- 0766 Jul, [facility] [place] [facility] [address] [id number] [place] [address]- 2546 Jul, [facility] [place] [facility] [address] [id number] [place] [address]- 3999 Jul, [facility] [place] [facility] [address] [id number] [place] [address]- 0690 Jun, [facility] [place] [facility] [address] [id number] [place] [address]- 1706 Jun, [facility] [place] [facility] [address] [id number] [place] [address]- 9098 Jun, [facility] [place] [facility] [address] [id number] [place] [address]- 0118 Jun, [facility] [place] [facility] [address] [id number] [place] [address]- 4118 Jun, [facility] [place] [facility] [address] [id number] [place] [address]- 9281 Jun, [facility] [place] [facility] [address] [id number] [place] [address]- 2624 Jun, [facility] [place] [facility] [address] [id number] [place] [address]- 1355 Jun, [facility] [place] [facility] [address] [id number] [place] [address]- 7208 Jun, [facility] [place] [facility] [address] [id number] [place] [address]- 7776 Jun, [facility] [place] [facility] [address] [id number] [place] [address]- 5230 Jun, [facility] [place] [facility] [address] [id number] [place] [address]- 4382 Jun, [facility] [place] [facility] [address] [id number] [place] [address]- 9862 Jun, [facility] [place] [facility] [address] [id number] [place] [address]- 8230 Jun, [facility] [place] [facility] [address] [id number] [place] [address]- 2740 Jun, [facility] [place] [facility] [address] [id number] [place] [address]- 8335 Jun, [facility] [address] [id number] [place] [address]- 4369 Jun, [facility] [address] [id number] [place] [address]- 8722 Jun, [facility] [address] [id number] [place] [address]- 7550 May, [facility] [address] [id number] [place] [address]- 9735 May, [facility] [address] [id number] [place] [address]- 9956 May, [facility] [address] [id number] [place] [address]- 1249 May, [facility] [address] [id number] [place] [address]- 5673 May, [facility] [address] [id number] [place] [address]- 1423 May, [facility] [address] [id number] [place] [address]- 8880 May, [facility] [address] [id number] [place] [address]- 7357 May, [facility] [address] [id number] [place] [address]- 0513 May, [facility] [address] [id number] May, [facility] [address] [id number] [place] [address]- 8507 May, [facility] [address] [id number] [place] [address]- 7436 May, [facility] [address] [id number] [place] [address]- 3967 May, [facility] [place] [facility] [address] [id number] [place] [address]- 9282 Apr, [facility] [place] [facility] [address] [id number] [place] [address]- 2692 Apr, [facility] [place] [facility] [address] [id number] [place] 8098 Apr, [facility] [place] [facility] [address] [id number] [place] [address]- 7339 Apr, [facility] [place] [facility] [address] [id number] [place] [address]- 7054 Apr, [facility] [place] [facility] [address] [id number] [place] [address]- 9741 Apr, [facility] [place] [facility] [address] [id number] [place] [address]- 2837 Mar, [facility] [place] [facility] [address] [id number] [place] [address]- 7061 Mar, [facility] [place] [facility] [address] [id number] [place] [address]- 1866 Mar, [facility] [place] [facility] [address] [id number] [place] [address]- 8389 Mar, [facility] [place] [facility] [address] [id number], [place] [address]- 2176 Mar, [facility] [place] [facility] [address] [id number], [place] [address]- 5135 Mar, [facility] [place] [facility] [address] [id number] [place] [address]- 9836 Feb, [facility] [place] [facility] [address] [id number] [place] [address]- 6516 Feb, [facility] [place] [facility] [address] [id number] [place] [address]- 6620 Feb, [facility] [place] [facility] [address] [id number] [place] [address]- 0869 Feb, [facility] [place] [facility] [address] [id number] [place] [address]- 6049 Feb, [facility] [place] [facility] [address] [id number] [place] [address]- 5287 Feb, [facility] [place] [facility] [address] [id number] [place] [address]- 8955 Feb, [facility] [place] [facility] [address] [id number] [place] [address]- 5550 Feb, [facility] [place] [facility] [address] [id number] [place] [address]- 4184 Feb, [facility] [place] [facility] [address] [id number] [place] [address]- 2385 Feb, [facility] [address] [id number] Feb, [facility] [place] [facility] [address] [id number] [place] [address]- 3949 Feb, [facility] [place] [facility] [address] [id number] [place] [address]- 6293 Jan, [facility] [place] [facility] [address] [id number] [place] [address]- 6577 Jan, [facility] [place] [facility] [address] [id number] [place] [address]- 1128 Dec, [facility] [place] [facility] [address] [id number] [place] [address]- 8077 Dec, [facility] [place] [facility] [address] [id number] [place] [address]- 6140 Dec, [facility] [place] [facility] [address] [id number] [place] [address]- 1177 Dec, [facility] [place] [facility] [address] [id number] [place] [address]- 1129 Dec, [facility] [place] [facility] [address] [id number] [place] [address]- 0952 Dec, 2013 [facility] [place] [facility] [address] [id number] [place] [address]- 9122 Dec, 2013 [facility] [place] [facility] [address] [id number] [place] [address]- 9930 Dec, 2013 [facility] [place] [facility] [address] [id number] [place] [address]- 7469 Dec, [facility] [place] [facility] [address] [id number] [place] [address]- 0067 Dec, [facility] [place] [facility] [address] [id number] [place] [address]- 6966 Nov, [facility] [place] [facility] [address] [id number] [place] [address]- 8376 Nov, [facility] [place] [facility] [address] [id number] [place] [address]- 6066 Nov, [facility] [place] [facility] [address] [id number] [place] [address]- 6366 Nov, [facility] [place] [facility] [address] [id number] [place] [address]- 2111 Nov, [facility] [place] [facility] [address] [id number] [place] [address]- 8055 Nov, [facility] [place] [facility] [address] [id number] [place] [address]- 0427 Nov, [facility] [place] [facility] [address] [id number] [place] [address]- 8076 Nov, [facility] [place] [facility] [address] [id number] [place] [address]- 8002 Nov, [facility] [place] [facility] [address] [id number] [place] [address]- 5214 Nov, [facility] [place] [facility] [address] [id number] [place] [address]- 6824 Nov, [facility] [place] [facility] [address] [id number] [place] [address]- 3333 Nov, [facility] [place] [facility] [address] [id number] [place] [address]- 6690 Nov, [facility] [place] [facility] [address] [id number] [place] [address]- 2156 Nov, [facility] [place] [facility] [address] [id number] [place] [address]- 2853 October, [facility] [place] [facility] [address] [id number] [place] [address]- 4424 October, [facility] [place] [facility] [address] [id number] [place] [address]- 5970 October, [facility] [place] [facility] [address] [id number] [place] [address]- 7249 October, [facility] [place] [facility] [address] [id number] [place] [address]- 8237 October, [facility] [place] [facility] [address] [id number] [place] [address]- 7654 October, [facility] [place] [facility] [address] [id number] [place] [address]- 8296 October, [facility] [place] [facility] [address] [id number] [place] [address]- 5592 October, [facility] [place] [facility] [address] [id number] [place] [address]- 2607 October, [facility] [place] [facility] [address] [id number] [place] [address]- 5425 October, [facility] [place] [facility] [address] [id number] [place] [address]- 7230 Sep, [facility] [place] [facility] [address] [id number] [place] [address]- 5260 Sep, [facility] [place] [facility] [address] [id number] [place] [address]- 1919 14 Sep, 2013 [facility] [place] [facility] [address] [id number] [place] [address]- 7510 14 Sep, 2013 [facility] [place] [facility] [address] [id number] [place] [address]- 5748 14 Sep, 2013 [facility] [place] [facility] [address] [id number] [place] [address]- 3402 Sep, [facility] [place] [facility] [address] [id number] [place] [address]- 4486 Sep, [facility] [place] [facility] [address] [id number] [place] [address]- 6664 Sep, [facility] [place] [facility] [address] [id number] [place] [address]- 8984 Sep, [facility] [place] [facility] [address] [id number] [place] [address]- 3073 Sep, [facility] [place] [facility] [address] [id number] [place] [address]- 5056 Aug, [facility] [place] [facility] [address] [id number] [place] [address]- 2654 Aug, [facility] [place] [facility] [address] [id number] [place] [address]- 4902 Aug, [facility] [place] [facility] [address] [id number] [place] [address]- 3741 Aug, [facility] [place] [facility] [address] [id number] [place] [address]- 3130 Aug, [facility] [place] [facility] [address] [id number] [place] [address]- 4292 Aug, [facility] [place] [facility] [address] [id number] [place] [address]- 9406 05 Aug, 2013 [facility] [place] [facility] [address] [id number] [place] [address]- 6964 Aug, [facility] [place] [facility] [address] [id number] [place] [address]- 0714 Aug, [facility] [place] [facility] [address] [id number] [place] [address]- 9406 Jul, [facility] [place] [facility] [address] [id number] [place] [address]- 5586 Jul, [facility] [place] [facility] [address] [id number] [place] [address]- 2218 Jul, [facility] [place] [facility] [address] [id number] [place] [address]- 6912 Jul, [facility] [place] [facility] [address] [id number] [place] [address]- 7456 Jul, [facility] [place] [facility] [address] [facility] [id number] [place] [address]- 5577 Jul, [facility] [place] [facility] [address] [id number] [place] [address]- 1267 Jul, [facility] [place] [facility] [address] [id number] [place] [address]- 9811 Jul, [facility] [place] [facility] [address] [facility] [id number] [place] [address]- 5268 Jul, [facility] [place] [facility] [address] [facility] [id number] [place] [address]- 8497 Jul, [facility] [place] [facility] [address] [id number] [place] [address]- 4586 Jul, [facility] [place] [facility] [address] [id number] [place] [address]- 0763 Jul, [facility] [place] [facility] [address] [id number] [place] [address]- 5826 Jul, [facility] [place] [facility] [address] [facility] [id number] [place] [address]- 8066 Jul, [facility] [place] [facility] [address] [id number] [place] [address]- 6817 Jul, [facility] [address] [id number] [place] [address]- 5164 Jul, [facility] [address] [id number] [place] [address]- 1886 Jun, [facility] [address] [id number] [place] [address]- 0551 Jun, [facility] [address] [id number] [place] [address]- 1185 Jun, [facility] [address] [id number] [place] [address]- 6655 Jun, [facility] [address] [id number] [place] [address]- 1680 Jun, [facility] [address] [id number] [place] [address]- 5642 Jun, [facility] [address] [id number] [place] [address]- 6170 May, [facility] [address] [id number] [place] [address]- 3465 May, [facility] [address] [id number] [place] [address]- 0421 May, [facility] [address] [id number] [place] [address]- 9935 May, [facility] [address] [id number] [place] [address]- 2277 Apr, [facility] [place] [facility] [address] [id number] [place] [address]- 2978 Apr, [facility] [address] [id number] [place] [address]- 7490 Apr, [facility] [address] [id number] [place] 0789 Apr, [facility] [place] [facility] [address] [id number] [place] [address]- 3404 Apr, [facility] [place] [facility] [address] [id number] [place] [address]- 4403 Apr, [facility] [place] [facility] [address] [id number] [place] [address]- 2349 Apr, [facility] [place] [facility] [address] [id number] [place] [address]- 9920 Apr, [facility] [place] [facility] [address] [id number] [place] [address]- 6639 Apr, [facility] [place] [facility] [address] [id number] [place] [address]- 5067 Apr, [facility] [place] [facility] [address] [id number] [place] [address]- 4893 Apr, [facility] [place] [facility] [address] [id number] [place] [address]- 8331 Apr, [facility] [place] [facility] [address] [id number] [place] [address]- 3877 Mar, [facility] [place] [facility] [address] [id number], [place] [address]- 8816 28 Mar, 2013 [facility] [place] [facility] [address] [id number], [place] [address]- 1310 16 Mar, 2013 [facility] [place] [facility] [address] [id number], [place] [address]- 0377 16 Mar, 2013 [facility] [place] [facility] [address] [id number] [place] [address]- 5515 15 Mar, 2013 [facility] [place] [facility] [address] [id number], [place] [address]- 5822 15 Mar, 2013 [facility] [place] [facility] [address] [id number] [place] [address]- [address] 27 Feb, 2013 [facility] [place] [facility] [address] [id number] [place] [address] 25 Feb, 2012 [facility] [place] [facility] [address] [id number] [place] [address] 25 Feb, 2012 [facility] [place] [facility] [address] [id number] [place] [address] 23 Feb, 2013 [facility] [place] [facility] [address] [id number] [place] [address]16 17 Feb, 2013 [facility] [place] [facility] [address] [id number] [place] [address]165 10 Feb, 2013 [facility] [place] [facility] [address] [id number] [place] [address] 04 Feb, 2013 [facility] [place] [facility] [address] [id number] [place] [address]70 30 Jan, 2013 [facility] [place] [facility] [address] [id number] [place] [address] Jan, [facility] [place] [facility] [address] [id number] [place] [address] 94[address] Jan, [facility] [place] [facility] [address] [id number] [place] [address] 7784 Jan, [facility] [place] [facility] [address] [id number] [place] [address]- 7860 Jan, [facility] [place] [facility] [address] [id number] [place] [address] Jan, [facility] [place] [facility] [address] [id number] [place] [address] 8481 Jan, [facility] [place] [facility] [address] [id number] [place] [address]- [address] Dec, [facility] [place] [facility] [address] [id number] [place] [address] 7979 Dec, [facility] [place] [facility] [address] [id number] [place] [address]- 4857 Dec, [facility] [place] [facility] [address] [id number] [place] [address]- [address] Dec, [facility] [place] [facility] [address] [id number] [place] [address]- [address] Dec, [facility] [place] [facility] [address] [id number] [place] [address]- 2546 Dec, [facility] [place] [facility] [address] [id number] [place] [address]- [address]446 Nov, [facility] [place] [facility] [address] [id number] [place] [address]- 67[address] Nov, [facility] [place] [facility] [address] [id number] [place] [address]- [address]88 Nov, [facility] [place] [facility] [address] [id number] [place] [address]- 9541 Nov, [facility] [place] [facility] [address] [id number] [place] [address]- 7734 October, [facility] [place] [facility] [address] [id number] [place] [address]111 October, [facility] [place] [facility] [address] [id number] [place] [address] 3449 October, [facility] [place] [facility] [address] [id number] [place] [address]236 October, [facility] [place] [facility] [address] [id number] [place] [address]- 1412 30 Sep, 2012 [facility] [place] [facility] [address] [id number] [place] [address] 3925 19 Sep, 2012 [facility] [place] [facility] [address] [id number] [place] [address] 8460 16 Sep, 2012 [facility] [place] [facility] [address] [id number] [place] [address]- 1537 12 Sep, 2012 [facility] [place] [facility] [address] [id number] [place] [address]- 2666 Sep, [facility] [address] [id number] [place] [address] 2461 Sep, [facility] [place] [facility] [address] [id number] [place] [address] 9606 Sep, [facility] [place] [facility] [address] [facility] [id number] [place] [address]- 8960 Sep, [facility] [place] [facility] [address] [id number] [place] [address]- 8270 Aug, [facility] [place] [facility] [address] [id number] [place] [address]- 1805 Aug, [facility] [place] [facility] [address] [id number] [place] [address]- 9107 Aug, [facility] [place] [facility] [address] [id number] [place] [address] 9187 18 Jul, 2012 [facility] [place] [facility] [address] [id number] [place] [address]- 7341 08 Jul, 2012 [facility] [place] [facility] [address] [id number] [place] [address]- 7689 Jul, [facility] [place] [facility] [address] [id number] [place] [address]- 8421 Jul, [facility] [place] [facility] [address] [id number], [place] [address]16 05 Jul, 2012 [facility] [place] [facility] [address] [id number], [place] [address] 2548 Jun, [facility] [place] [facility] [address] [id number] [place] [address]- 1246 Jun, [facility] [place] [facility] [address] [id number] [place] [address]- 4671 Jun, [facility] [place] [facility] [address] [id number] [place] [address]- 9476 May, [facility] [place] [facility] [address] [id number] [place] [address]- 8751 11 May, 2012 [facility] [place] [facility] [address] [id number] [place] [address]- 5592 May, [facility] [place] [facility] [address] [id number] [place] [address]- 4376 May, [facility] [place] [facility] [address] [id number] [place] [address]- 3456 May, [facility] [place] [facility] [address] [id number] [place] [address]- 1616 May, [facility] [place] [facility] [address] [id number] [place] [address]- 8176 May, [facility] [place] [facility] [address] [id number] [place] [address] 6946 Apr, [facility] [place] [facility] [address] [id number] [place] [address]- 6727 Apr, [facility] [place] [facility] [address] [id number] [place] [address]- 1100 Apr, [facility] [place] [facility] [address] [id number] [place] [address]- 1139 Apr, [facility] [place] [facility] [address] [id number] [place] [address]- 1700 Apr, [facility] [place] [facility] [address] [id number] [place] [address]- 7113 Apr, [facility] [place] [facility] [address] [id number] [place] [address]- 8950 Apr, [facility] [place] [facility] [address] [id number] [place] [address]- 8755 Apr, [facility] [place] [facility] [address] [id number] [place] [address]- 3605 Apr, [facility] [place] [facility] [address] [id number] [place] [address]- 9701 Apr, [facility] [place] [facility] [address] [id number] [place] [address]- 4519 Apr, [facility] [place] [facility] [address] [id number] [place] [address]- 7649 Mar, [facility] [place] [facility] [address] [id number] [place] [address]- 1304 Mar, [facility] [place] [facility] [address] [id number] [place] [address]- 4204 Mar, [facility] [place] [facility] [address] [id number] [place] [address]- 9258 Mar, [facility] [place] [facility] [address] [id number] [place] [address]- 1819 Mar, [facility] [place] [facility] [address] [id number] [place] [address]- 1533 Mar, [facility] [place] [facility] [address] [id number], [place] [address] Mar, [facility] [place] [facility] [address] [id number] [place] [address] Mar, [facility] [place] [facility] [address] [id number], [place] [address] Mar, [facility] [place] [facility] [address] [id number], [place] [address] Mar, [facility] [place] [facility] [address] [id number], [place] [address] Mar, [facility] [place] [facility] [address] [id number] [place] [address] 2012 [facility] [place] [facility] [address] [id number], [place] [address] 27 Feb, 2012 [facility] [place] [facility] [address] [id number] [place] [address]287 27 Feb, 2012 [facility] [place] [facility] [address] [id number] [place] [address]600 26 Feb, 2012 [facility] [place] [facility] [address] [id number] [place] [address] 3936 24 Feb, 2012 [facility] [place] [facility] [address] [id number] [place] [address] Feb, [facility] [place] [facility] [address] [id number] [place] [address] 2546 Feb, [facility] [place] [facility] [address] [id number] [place] [address] 2546 Feb, [facility] [place] [facility] [address] [id number] [place] [address]- [address] Feb, [facility] [place] [facility] [address] [id number] [place] [address] 5716 Jan, [facility] [place] [facility] [address] [id number] [place] [address] 1367 Jan, [facility] [place] [facility] [address] [id number] [place] [address]- [address] Jan, [facility] [place] [facility] [address] [id number] [place] [address]- 4[address] Jan, [facility] [place] [facility] [address] [id number] [place] [address]- 4141 Dec, [facility] [place] [facility] [address] [id number] [place] [address] 8486 Dec, [facility] [place] [facility] [address] [id number] [place] [address]- 254 Dec, [facility] [place] [facility] [address] [id number] [place] [address]- 1616 Dec, [facility] [place] [facility] [address] [id number] [place] [address]- [address]686 Dec, [facility] [place] [facility] [address] [id number] [place] [address]- [address]80 Dec, [facility] [place] [facility] [address] [id number] [place] [address] 48[address] Dec, [facility] [place] [facility] [address] [id number] [place] [address]- 0747 Dec, [facility] [place] [facility] [address] [id number] [place] [address]- 1054 Dec, [facility] [place] [facility] [address] [id number] [place] [address]- 5879 Dec, [facility] [place] [facility] [address] [id number] [place] [address]- [address]88 Dec, [facility] [place] [facility] [address] [id number] [place] [address]- 9405 Dec, [facility] [place] [facility] [address] [id number] [place] [address]- 7730 Dec, [facility] [place] [facility] [address] [id number] [place] [address]- 1564 Dec, [facility] [place] [facility] [address] [id number] [place] [address] 6244 Nov, [facility] [place] [facility] [address] [id number] [place] [address]- 5867 Nov, [facility] [place] [facility] [address] [id number] [place] [address]- 5971 Nov, [facility] [place] [facility] [address] [id number] [place] [address]- 4963 Nov, [facility] [place] [facility] [address] [id number] [place] [address]- 8675 Nov, [facility] [place] [facility] [address] [id number] [place] [address]- 1531 Nov, [facility] [place] [facility] [address] [id number] [place] [address]- 5922 October, [facility] [place] [facility] [address] [id number] [place] [address]- 0183 October, [facility] [place] [facility] [address] [id number] [place] [address]- 3813 October, [facility] [place] [facility] [address] [id number] [place] [address]- 9796 October, [facility] [place] [facility] [address] [id number] [place] [address]- 1504 Sep, [facility] [place] [facility] [address] [id number] [place] [address]- 2135 Sep, [facility] [place] [facility] [address] [id number] [place] [address]- 4795 Sep, [facility] [place] [facility] [address] [id number] [place] [address]- 8265 Sep, [facility] [place] [facility] [address] [id number] [place] [address]- 2735 Sep, [facility] [place] [facility] [address] [id number] [place] [address]- 2324 Aug, [facility] [place] [facility] [address] [id number] [place] [address]- 9809 Aug, [facility] [place] [facility] [address] [id number] [place] [address]- 2696 Aug, [facility] [place] [facility] [address] [id number] [place] [address]- 8561 Aug, [facility] [place] [facility] [address] [id number] [place] [address]- 3770 Aug, [facility] [place] [facility] [address] [id number] [place] [address]- 1416 Aug, [facility] [place] [facility] [address] [id number] [place] [address]- 8548 Aug, [facility] [place] [facility] [address] [id number] [place] [address]- 5956 16 Jul, 2011 [facility] [place] [facility] [address] [facility] [id number], [place] [address] 16 Jul, 2011 [facility] [address] [id number] [place] [address]- 9104 Jul, [facility] [address] [facility] [id number] [place] [address]- 8166 Jul, [facility] [address] [facility] [id number] [place] [address]- 7685 Jun, [facility] [address] [id number] Jun, [facility] [address] [id number] [place] [address] 73[address] Jun, [facility] [address] [facility] [id number] [place] [address]- 1758 Jun, [facility] [id number] [place] [address] Jun, [facility] [address] [facility] [id number], [place] [address]805 Jun, [facility] [address] [id number] [place] [address]- 9814 Jun, [facility] [address] [id number], [place] [address]111 Jun, [facility] [address] [id number] [place] [address]- 1393 May, [facility] [address] [facility] [id number], [place] [address] May, [facility] [address] [facility] [id number] [place] [address]- 9285 May, [facility] [address] [facility] [id number] [place] [address]- 4263 May, [facility] [address] [facility] [id number], [place] [address]- 8086 May, [facility] [place] [facility] [address] [id number] [place] [address]- 8282 May, [facility] [place] [facility] [address] [id number] [place] [address]- 7937 May, [facility] [place] [facility] [address] [id number] [place] [address]- 3110 Apr, [facility] [place] [facility] [address] [id number] [place] [address]- 1929 Apr, [facility] [place] [facility] [address] [id number] [place] [address]- 8475 Apr, [facility] [place] [facility] [address] [id number] [place] [address]- 2594 Mar, [facility] [place] [facility] [address] [id number] [place] [address]- 9767 Mar, [facility] [place] [facility] [address] [id number] [place] [address]- 4514 14 Mar, 2011 [facility] [place] [facility] [address] [id number] [place] [address]- 1265 Mar, [facility] [place] [facility] [address] [id number] [place] [address]- 1203 Mar, [facility] [place] [facility] [address] [id number] [place] [address]- 5806 Mar, [facility] [place] [facility] [address] [id number] [place] [address]- 2354 Mar, [facility] [place] [facility] [address] [id number] [place] [address]- 6107 Jan, [facility] [place] [facility] [address] [id number] [place] [address]- 7239 May, [facility] [place] [facility] [address] [id number] [place] [address]- 4832 May, [facility] [place] [facility] [address] [id number] [place] [address]- 3836 13 May, 2010 [facility] [place] [facility] [address] [id number] [place] [address]- 8981 13 May, 2010 [facility] [place] [facility] [address] [id number] [place] [address]- 0127 10 May, 2010 [facility] [place] [facility] [address] [facility] [id number] [place] [address]- 9912 06 May, 2010 [facility] [place] [facility] [address] [id number], [place] [address]- 5029 29 Apr, 2010 [facility] [place] [facility] [address] [id number] [place] [address]- 9586 26 Apr, 2010 [facility] [place] [facility] [address] [id number], [place] [address]- 9048 Apr, [facility] [place] [facility] [address] [id number] [place] [address]- 9768 18 Apr, 2010 [facility] [place] [facility] [address] [id number], [place] [address]- 1020 15 Apr, 2010 [facility] [place] [facility] [address] [id number], [place] [address]- 9724 Apr, [facility] [place] [facility] [address] [id number], [place] [address]- 5109 Apr, [facility] [place] [facility] [address] [id number], [place] [address]- 6311 05 Apr, 2010 [facility] [place] [facility] [address] [id number], [place] [address]- 1072 05 Apr, 2010 [facility] [place] [facility] [address] [id number], [place] [address]- 8092 Apr, [facility] [place] [facility] [address] [id number], [place] [address]- 5258 Mar, [facility] [place] [facility] [address] [id number], [place] [address]- 9730 Mar, [facility] [place] [facility] [address] [facility] [id number] [place] [address]- 8266 Mar, [facility] [address] [facility] [id number], [place] [address]- 4749 Mar, [facility] [address] [facility] [id number] [place] [address]- 3349 Mar, [facility] [address] [facility] [id number], [place] [address]- 9500 Dec, [facility] [address] [facility] [id number][place] [address]236 Nov, IMMUNIZATIONS No Known Immunizations SOCIAL HISTORY Never Assessed REASON FOR VISIT controlled medication refill 05/20 PLAN OF CARE VITAL SIGNS MEDICATIONS Medication Instructions Dosage Frequency Start Date End Date Duration Status Fentanyl 75 MCG/HR Transdermal every 72 hours 1 patch to skin Apr, 30 days Active RESULTS No Results [...] skin graft, cholecysectomy Hospitalization History [facility]2016 [facility] 08/2017 Hospitalization History [facility] 01/2018
--- OUTSIDE RECORDS SUMMARY | 2018-07-05 14:46 | XMS REPORT ---
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 Name Role Phone NAHOMY BETH Unavailable PROBLEMS Type Condition ICD9-CM Code CEZ59-OX Code Onset Dates Condition Status SNOMED Code Problem Anemia, unspecified type D64.9 Active 277829753 Problem Personality disorder F60.9 Active 32560296 Problem Factitious disorder imposed on self, recurrent episode F68.10 Active 19530623 Problem Ventral hernia without obstruction or gangrene K43.9 Active 283681285 Problem Allergic state, subsequent encounter T78.40XD Active 897740386 Problem Anxiety F41.9 Active 68665859 Problem Age-related osteoporosis without current pathological fracture M81.0 Active 85497922 Problem Unspecified psychosis not due to a substance or known physiological condition F29 Active 18950027 Problem Iron deficiency anemia, unspecified iron deficiency anemia type D50.9 Active 62055590 Problem History of CVA with residual deficit I69.30 Active 745804014 Problem Seizure disorder G40.909 Active 525511816 Problem Perennial allergic rhinitis, unspecified allergic rhinitis trigger J30.89 Active 294900112 Problem Chronic kidney disease, unspecified stage N18.9 Active 748050064 Problem Back pain M54.9 Active 476382836 Problem Gastroesophageal reflux disease without esophagitis K21.9 Active 491982103 Problem Insomnia, unspecified type G47.00 Active 645234797 Problem History of colon polyps Z86.010 Active 144057411 ALLERGIES No Information ENCOUNTERS Encounter Location Date Diagnosis [facility] [id number] [address] Apr, [facility] [address] [place] [id number] Apr, Other specified postprocedural states Z98.890 [facility] [id number] [address] 2974 Mar, Back pain M54.9 [facility] [id number] [place] [address] 29841- 3020 Mar, [facility] [id number] [place] [address] 81112- 8426 Mar, [facility] [id number] [place] [address] 77252- 1716 Mar, [facility] [id number] [place] [address] 43759- 9372 Mar, Back pain M54.9 [facility] [id number] [place] [address] 87963- 9097 Mar, Back pain M54.9 and Encounter for immunization Z23 [facility] [id number] [place] [address] 51211- 4031 Feb, [facility] [id number] [place] [address] 92839- 8814 Feb, Unspecified psychosis not due to a substance or known physiological condition F29 ; Personality disorder F60.9 and Factitious disorder imposed on self, recurrent episode F68.10 [facility] [id number] [place] [address] 26907- 3873 Feb, Back pain M54.9 [facility] [id number] [place] [address] 54592- 7987 Jan, Unspecified psychosis not due to a substance or known physiological condition F29 ; Personality disorder F60.9 and Factitious disorder imposed on self, recurrent episode F68.10 [facility] [id number] [place] [address] 71002- 4115 Jan, [facility] [id number] [place] [address] 16964- 4196 Jan, Back pain M54.9 and Seizure disorder G40.909 [facility] [address] [address] 4116 Jan, Back pain M54.9 [address] [id number] [place] [address] 78046- 5716 Jan, Back pain M54.9 [address] [id number] [place] [address] 21914- 1484 Jan, [facility] [id number] [place] [address] 98336- 4210 Jan, Unspecified psychosis not due to a substance or known physiological condition F29 ; Personality disorder F60.9 and Factitious disorder imposed on self, recurrent episode F68.10 [address] [id number] [place] [address] 95371- 4968 Dec, Back pain M54.9 ; Seizure disorder G40.909 ; Ventral hernia without obstruction or gangrene K43.9 and History of CVA with residual deficit I69.30 [address] [id number] [place] [address] 03930- 3232 Dec, Unspecified psychosis not due to a substance or known physiological condition F29 ; Personality disorder F60.9 and Factitious disorder imposed on self, recurrent episode F68.10 [address] [address] 2025 Dec, [address] [facility] [address] [address] 5407 Dec, Back pain M54.9 [address] [address] [address] 6073 Dec, Factitious disorder imposed on self, recurrent episode F68.10 ; Personality disorder F60.9 ; Insomnia, unspecified type G47.00 and Anxiety F41.9 [address] [address] 1681 Nov, Unspecified psychosis not due to a substance or known physiological condition F29 ; Personality disorder F60.9 and Factitious disorder imposed on self, recurrent episode F68.10 [facility] [address] [address] 4536 Nov, Back pain M54.9 [facility] [address] [address] 2872 Nov, Unspecified psychosis not due to a substance or known physiological condition F29 ; Personality disorder F60.9 and Factitious disorder imposed on self, recurrent episode F68.10 [facility] [address] [address] 8794 October, [facility] [id number] [place] [address] 70220- 5582 October, [facility] [id number] [place] [address] 38254- 5557 October, Unspecified psychosis not due to a substance or known physiological condition F29 ; Personality disorder F60.9 and Factitious disorder imposed on self, recurrent episode F68.10 [facility] [address] [place] [address] 40441- 5673 October, Back pain M54.9 [facility] [id number] [place] [address] 07577- 6824 October, Seizure disorder G40.909 ; Back pain M54.9 and Allergic state, subsequent encounter T78.40XD [facility] [address] [address] 8268 October, [facility] [id number] [place] [address] 06657- 8811 Sep, Back pain M54.9 [facility] [address] [address] 2369 Sep, Unspecified psychosis not due to a substance or known physiological condition F29 ; Personality disorder F60.9 and Factitious disorder imposed on self, recurrent episode F68.10 [facility] [address] [address]- 6637 Sep, [facility] [address] [address]- 4766 Sep, [facility] [address] [address]- 9676 Sep, [facility] [address] [address]- 1623 Sep, [facility] [address] [address]- 1402 Aug, [facility] [id number] [place] [address] 64667- 0928 Aug, Back pain M54.9 [facility] [address] [address] 6557 Aug, Factitious disorder imposed on self, recurrent episode F68.10 ; Personality disorder F60.9 ; Insomnia, unspecified type G47.00 and Anxiety F41.9 [facility] [id number] [address] 6044 Aug, Back pain M54.9 ; Iron deficiency anemia, unspecified iron deficiency anemia type D50.9 ; Chronic kidney disease, unspecified stage N18.9 and Breast cancer screening Z12.31 [facility] [address] [id number] [id number] Jul, Back pain M54.9 [facility] [id number] [id number] Jul, [facility] [address] [id number] [id number] Jul, [facility] [id number] [address] Jun, Back pain M54.9 [facility] [address] [id number] [id number] Jun, [facility] [id number] [address] Jun, Back pain M54.9 [id number] [place] [address] 81638- 2605 Jun, Back pain M54.9 ; Seizure disorder G40.909 and Age-related osteoporosis without current pathological fracture M81.0 [facility] [id number] [place] [address] [id number] May, [address] [facility] [id number] [place] [address] 99004144- 0102 May, Back pain M54.9 [address] [facility] [id number] [place] [address] 81157- 1917 Apr, Back pain M54.9 ; Encounter for immunization Z23 ; Gastroesophageal reflux disease without esophagitis K21.9 ; Age-related osteoporosis without current pathological fracture M81.0 and Chronic pruritus L29.9 [address] [id number] [place] [address] 27729- 9695 Apr, History of CVA with residual deficit I69.30 [address] [id number] [place] [address] 93640- 6382 Apr, Factitious disorder imposed on self, recurrent episode F68.10 and Personality disorder F60.9 [address] [id number] [place] [address] [id number] Apr, Back pain M54.9 [facility] [id number] [place] [address] 22692- 7549 Mar, Factitious disorder imposed on self, recurrent episode F68.10 [address] [id number] [place] [address] 36970- 5533 Mar, [address] [id number] [place] [address] [id number] Mar, [place] [facility] [id number] [place] [address] [id number] Mar, Back pain M54.9 [facility] [address] [address]- 8761 05 Mar, 2017 Back pain M54.9 ; Seizure disorder G40.909 and Age-related osteoporosis without current pathological fracture M81.0 [facility] [address] [address]- 9289 19 Feb, 2017 History of CVA with residual deficit I69.30 [address] [id number] [place] [address] 18661- 0922 Feb, Factitious disorder imposed on self, recurrent episode F68.10 and Personality disorder F60.9 [address] [facility] [id number] [place] [address] 25934- 5308 15 Feb, 2017 Back pain M54.9 [address] [facility] [address]- 5188 Feb, [address] [id number] [place] [address] 68588- 2839 Jan, [facility] [address] [place] [id number] Jan, Age- related osteoporosis without current pathological fracture M81.0 and Allergic state, subsequent encounter T78.40XD [address] [facility] [id number] [place] [address] 29606- 6300 Jan, Factitious disorder imposed on self, recurrent episode F68.10 and Personality disorder F60.9 [address] [address] [address]- 9608 Dec, Back pain M54.9 [address] [id number] [place] [address] 15106- 6592 Dec, Personality disorder F60.9 and Factitious disorder imposed on self, recurrent episode F68.10 [facility] [id number] [address] Dec, Back pain M54.9 [place] [id number] [id number] Dec, [facility] [id number] [place] [address] [id number] Dec, [facility] [address] [address] 8240 Dec, [facility] [id number] [place] [address] 18467- 4033 Nov, [facility] [id number] [place] [address] 82521- 3614 Nov, Back pain M54.9 ; Anemia, unspecified type D64.9 and History of colon polyps Z86.010 [facility] [id number] [place] [address] 68246- 4669 Nov, Back pain M54.9 [facility] [id number] [place] [address] [id number] October, Back pain M54.9 [facility] [address] [place] [address] [phone] October, Back pain M54.9 and Gastroesophageal reflux disease without esophagitis K21.9 [facility] [id number] [place] [address] [id number] Sep, [facility] [address] [address]- 0160 Sep, [facility] [address], [place] [address]- 5467 Sep, [facility] [address] [address]- 6636 Sep, [facility] [id number] [place] [address] 71867- 8844 Sep, [facility] [address] [address]- 2618 Sep, Seizure disorder G40.909 [facility] [id number] [place] [address] 49536626- 9449 06 Sep, 2016 Back pain M54.9 [facility] [address], [place] [address]- 4149 Sep, [facility] [address] [address]- 3798 31 Aug, 2016 Back pain M54.9 [facility] [address] [address]- 5606 29 Aug, 2016 Seizure disorder G40.909 [facility] [id number] [place] [address] [id number] 17 Aug, 2016 [facility] [id number] [place] [address] [id number] 16 Aug, 2016 Back pain M54.9 [facility] [id number] [place] [address] [id number] 14 Aug, 2016 Back pain M54.9 [facility] [id number] [place] [address] [id number] 06 Aug, 2016 Back pain M54.9 [facility] [address] [place] [address] [phone] Jul, Weakness R53.1 [facility] [address], [place] [address]- 7612 Jul, Seizure disorder G40.909 [facility] [address], [place] [address]- 9916 Jul, [facility] [address] [address]- 9980 Jul, Breast cancer screening Z12.39 [facility] [id number] [place] [address] 45013- 7555 Jul, [facility] [address] [address]- 9805 Jul, [facility] [id number] [place] [address] 15073- 0342 Jul, [facility] [address] [address]- 2758 Jul, Seizure disorder G40.909 ; Fatigue, unspecified type R53.83 ; Perennial allergic rhinitis, unspecified allergic rhinitis trigger J30.89 and Chronic kidney disease, unspecified stage N18.9 [facility] [id number] [place] [address] 64461- 1525 Jul, [facility] [id number] [place] [address] 86551- 8058 Jul, Seizure disorder G40.909 [facility] [id number] [place] [address] 53584- 6498 Jun, [facility] [id number] [place] [address] 26892- 1280 Jun, [facility] [address] [id number] Jun, Perennial allergic rhinitis, unspecified allergic rhinitis trigger J30.89 [facility] [id number] [place] [address] [id number] Jun, [facility] [id number] [place] [address] 90713- 1993 Jun, Seizure disorder G40.909 [facility] [id number] [place] [address] [id number] Jun, [facility] [id number] [place] [address] [phone] May, [facility] [address] [address]- 0781 May, [facility] [id number] [place] [address] 71320- 5126 May, [facility] [id number] [place] [address] 08297- 8236 May, [facility] [id number] [place] [address] 22145- 0599 May, History of CVA with residual deficit I69.30 [facility] [id number] [place] [address] 86334- 0255 May, [facility] [id number] [place] [address] 82661- 3816 May, [facility] [id number] [place] [address] 76831- 6362 May, [facility] [id number] [place] [address] 63304- 1814 May, Seizure disorder G40.909 [facility] [id number] [place] [address] 76934- 0600 May, [employer] [address] [place] [address] May, Back pain M54.9 and Seizure disorder G40.909 [facility] [id number] [place] [address] 41626- 6748 Apr, [facility] [id number] [place] [address] 85158- 4921 Apr, Back pain M54.9 [facility] [id number] [place] [address] 48078- 6526 Mar, [facility] [address] [place] [address] Mar, Insomnia, unspecified type G47.00 [facility] [id number] [place] [address] 11055- 3631 Mar, [facility] [id number] [place] [address] 98795- 8238 23 Feb, 2016 [facility] [id number] [place] [address] 30703- 4426 Feb, [facility] [id number] [place] [address] 75211- 9362 Feb, [facility] [address] [address]- 4651 Jan, [facility] [id number] [place] [address] 30777- 0561 Jan, [facility] [employer] [facility] [address] [place] [address] Jan, Seizure disorder G40.909 and Back pain M54.9 [facility] [id number] [place] [address] 05706- 2718 Dec, [facility] [id number] [place] [address] 09244- 2484 Dec, [facility] [id number] [place] [address] 96528- 7737 Dec, [facility] [id number] [place] [address] 58051- 2635 Nov, [facility] [id number] [place] [address] 67077- 7379 Nov, [facility] [id number] [place] [address] 14126- 7881 Nov, Back pain M54.9 [facility] [id number] [place] [address] [phone]- [phone] October, [facility] [id number] [place] [address] [phone]- 5751 October, Back pain M54.9 [facility] [id number] [place] [address] [phone]- [phone] October, Seizure disorder G40.909 and B12 deficiency E53.8 [facility] [id number] [place] [address] 23905- 6877 Sep, History of CVA with residual deficit I69.30 [facility] [id number] [address] Sep, [facility] [id number] [address] 18 Sep, 2015 [facility] [id number] [place] [address] [phone]- [phone] Sep, Back pain M54.9 [facility] [id number] [place] [address] 37289- 2896 Sep, Seizure disorder G40.909 [facility] [id number] [place] [address] [phone]- 7620 Aug, Back pain M54.9 [facility] [id number] [place] [address] 07825- 3637 18 Aug, 2015 Seizure disorder G40.909 [facility] [id number] [place] [address] [phone]- 5112 16 Aug, 2015 Back pain M54.9 [facility] [id number] [place] [address] 22454- 2544 14 Aug, 2015 Heart failure, unspecified I50.9 [facility] [id number] [place] [address] 14605- 1285 14 Aug, 2015 Medication monitoring encounter Z51.81 [facility] [id number] [place] [address] [phone]- 1094 15 Jul, 2015 [facility] [id number] [place] [address] 13767- 5774 09 Jul, 2015 Seizure disorder G40.909 [facility] [id number] [address] 05 Jul, 2015 Back pain M54.9 [facility] [id number] [place] [address] 89388- 5810 Jun, [facility] [id number] [place] [address] 09404- 3961 Jun, [facility] [id number] [place] [address] 74086- 2993 Jun, Mental status change R41.82 ; History of CVA with residual deficit I69.30 ; Back pain M54.9 and Seizure disorder G40.909 [facility] [id number] [address] 86[address] Jun, [facility] [id number] [address] 0586 May, [facility] [id number] [place] [address] 47627- 4679 Apr, [facility] [id number] [place] [address] 12276- 5762 Apr, Medication monitoring encounter Z51.81 [facility] [id number] [place] [address] 45600- 5395 Mar, Vomiting R11.10 [facility] [id number] [place] [address] 41571- 5285 Mar, [facility] [id number] [address] 6935 Feb, [facility] [id number] [place] [address] 92331- 5334 Feb, UTI (urinary tract infection) 599.0 [facility] [id number] [address] 4656 Jan, [facility] [id number] [address]- 2527 Jan, [facility] [id number] [address]- 4868 Jan, [facility] [id number] [address] 3663 Dec, [facility] [id number] [address]- 0120 Dec, [facility] [id number] [place] [address] 03423 2546 Dec, [facility] [place] [facility] [address] [id number] [place] [address] 2003 Dec, [facility] [place] [facility] [address] [id number] [place] [address]- 7586 Nov, UNKNOWN Nov, [facility] [place] [facility] [address] [facility] [id number] [place] [address]- 1016 October, [facility] [place] [facility] [address] [id number] [place] [address]- 2225 Sep, [facility] [place] [facility] [address] [id number] [place] [address]- 4394 Sep, [facility] [place] [facility] [address] [id number] [place] [address]- 1396 Aug, [facility] [place] [facility] [address] [id number] [place] [address]- 0554 Aug, [facility] [place] [facility] [address] [id number] [place] [address]- 8502 Jul, [facility] [place] [facility] [address] [id number] [place] [address]- 9000 Jul, [facility] [place] [facility] [address] [facility] [id number] [place] [address]- 9349 Jul, [facility] [place] [facility] [address] [id number] [place] [address]- 2546 Jul, [facility] [place] [facility] [address] [facility] [id number] [place] [address]- 2546 Jul, [facility] [place] [facility] [address] [id number] [place] [address]- 2286 Jun, [facility] [place] [facility] [address] [id number] [place] [address]- 2546 Jun, [facility] [place] [facility] [address] [facility] [id number] [place] [address]- 1518 Jun, [facility] [place] [facility] [address] [id number] [place] [address]- 8682 Jun, [facility] [place] [facility] [address] [id number] [place] [address]- 2251 Jun, [facility] [place] [facility] [address] [id number] [place] [address]- 0878 Jun, [facility] [place] [facility] [address] [id number] [place] [address]- 0538 Jun, [facility] [place] [facility] [address] [id number] [place] [address]- 0987 Jun, [facility] [place] [facility] [address] [id number] [place] [address]- 6525 Jun, [facility] [place] [facility] [address] [id number] [place] [address]- 1425 Jun, [facility] [place] [facility] [address] [id number] [place] [address]- 3247 Jun, [facility] [place] [facility] [address] [id number] [place] [address]- 0857 Jun, [facility] [place] [facility] [address] [id number] [address]- 4562 Jun, [facility] [place] [facility] [address] [id number] [address]- 8364 Jun, [facility] [place] [facility] [address] [id number] [address]- 0138 Jun, [facility] [place] [facility] [address] [id number] [place] [address]- 2474 Jun, [facility] [place] [facility] [address] [id number] [place] [address]- 9325 Jun, [facility] [place] [facility] [address] [id number] [address]- 4473 Jun, [facility] [place] [facility] [address] [id number] [address]- 6464 May, [facility] [address] [id number] [place] [address]692 May, [facility] [address] [id number] [place] [address] May, [facility] [address] [id number] [place] [address]48 May, [facility] [address] [id number] [place] [address]- 9478 May, [facility] [address] [id number] [place] [address]- 2369 16 May, 2014 [facility] [address] [id number] [place] [address]- 4138 May, [facility] [address] [id number] [place] [address]- 6776 May, [facility] [address] [id number] [place] [address]- 3948 May, [facility] [address] [place] [id number] May, [facility] [address] [id number] [place] [address]- 9310 May, [facility] [address] [id number] [address]- 9185 May, [facility] [place] [facility] [address] [id number] [address]- 1998 May, [facility] [place] [facility] [address] [id number] [place] [address]- 8840 Apr, [facility] [place] [facility] [address] [id number] [place] [address]- 2949 Apr, [facility] [place] [facility] [address] [id number] [place] [address]- 1489 Apr, [facility] [place] [facility] [address] [id number] [place] [address]- 3740 Apr, [facility] [place] [facility] [address] [id number] [place] [address]- 7534 Apr, [facility] [place] [facility] [address] [id number] [place] [address]- 3723 Apr, [facility] [place] [facility] [address] [id number] [place] [address]- 1421 Mar, [facility] [place] [facility] [address] [id number] [place] [address]- 5086 Mar, [facility] [place] [facility] [address] [id number] [place] [address]- 2368 Mar, [facility] [place] [facility] [address] [id number] [place] [address]- 6146 Mar, [facility] [place] [facility] [address] [id number] [place] [address]- 1794 Mar, [facility] [place] [facility] [address] [id number] [place] [address]- 3439 Mar, [facility] [place] [facility] [address] [id number] [place] [address]- 6205 24 Feb, 2014 [facility] [place] [facility] [address] [id number] [place] [address]- 6970 24 Feb, 2014 [facility] [place] [facility] [address] [id number] [place] [address]- 5534 23 Feb, 2013 [facility] [place] [facility] [address] [id number] [place] [address]- 7771 23 Feb, 2013 [facility] [place] [facility] [address] [id number] [place] [address]- 0683 19 Feb, 2014 [facility] [place] [facility] [address] [id number] [place] [address]- 2540 19 Feb, 2013 [facility] [place] [facility] [address] [id number] [place] [address]- 0714 Feb, [facility] [place] [facility] [address] [id number] [place] [address]- 9489 Feb, [facility] [place] [facility] [address] [id number] [place] [address]- 6487 Feb, [facility] [place] [facility] [address] [id number] [place] [address]- 2793 Feb, [facility] [address] [facility] [place] [id number] Feb, [facility] [place] [facility] [address] [id number] [place] [address]- 6570 Feb, [facility] [place] [facility] [address] [id number] [place] [address]- 3171 Jan, [facility] [place] [facility] [address] [id number] [place] [address]- 9092 Jan, [facility] [place] [facility] [address] [id number] [place] [address]- 9928 Dec, [facility] [place] [facility] [address] [id number] [place] [address]- 5861 Dec, [facility] [place] [facility] [address] [id number] [place] [address]- 2022 Dec, [facility] [place] [facility] [address] [id number] [place] [address]- 2690 Dec, [facility] [place] [facility] [address] [id number] [place] [address]- 1280 Dec, [facility] [place] [facility] [address] [id number] [place] [address]- 3779 Dec, [facility] [place] [facility] [address] [id number] [place] [address]- 2982 Dec, [facility] [place] [facility] [address] [id number] [place] [address]- 7686 Dec, [facility] [place] [facility] [address] [id number] [place] [address]- 4256 Dec, [facility] [place] [facility] [address] [id number] [place] [address]- 4171 Dec, [facility] [place] [facility] [address] [id number] [place] [address]- 6278 Nov, [facility] [place] [facility] [address] [id number] [place] [address]- 9775 Nov, [facility] [place] [facility] [address] [id number] [place] [address]- 7061 Nov, [facility] [place] [facility] [address] [id number] [place] [address]- 5519 Nov, [facility] [place] [facility] [address] [id number] [place] [address]- 7481 Nov, [facility] [place] [facility] [address] [id number] [place] [address]- 6655 Nov, [facility] [place] [facility] [address] [id number] [place] [address]- 7148 Nov, [facility] [place] [facility] [address] [id number] [place] [address]- 8289 Nov, [facility] [place] [facility] [address] [id number] [place] [address]- 0196 Nov, [facility] [place] [facility] [address] [id number], [place] [address]- 3272 Nov, [facility] [place] [facility] [address] [id number], [place] [address]- 6066 Nov, [facility] [place] [facility] [address] [id number] [place] [address]- 6350 Nov, [facility] [place] [facility] [address] [id number] [place] [address]- 4704 Nov, [facility] [place] [facility] [address] [id number] [place] [address]- 6762 Nov, [facility] [place] [facility] [address] [id number] [place] [address]- 1649 October, [facility] [address] [id number] [place] [address]- 9356 October, [facility] [place] [facility] [address] [id number] [place] [address]- 7231 October, [facility] [place] [facility] [address] [id number] [place] [address]- 3729 October, [facility] [place] [facility] [address] [id number] [place] [address]- 1499 October, [facility] [place] [facility] [address] [id number] [place] [address]- 0861 October, [facility] [place] [facility] [address] [id number] [place] [address]- 5881 October, [facility] [address] [id number] [place] [address]- 5479 October, [facility] [place] [facility] [address] [id number] [place] [address]- 9084 October, [facility] [place] [facility] [address] [id number] [place] [address]- 9874 October, [facility] [place] [facility] [address] [id number] [place] [address]- 6793 Sep, [facility] [place] [facility] [address] [id number] [place] [address]- 1550 Sep, [facility] [place] [facility] [address] [id number] [place] [address]- 5507 Sep, [facility] [place] [facility] [address] [id number] [place] [address]- 1283 Sep, [facility] [place] [facility] [address] [id number] [place] [address]- 1121 Sep, [facility] [place] [facility] [address] [id number] [place] [address]- 8428 Sep, [facility] [place] [facility] [address] [id number] [place] [address]- 2599 Sep, [facility] [place] [facility] [address] [id number] [place] [address]- 8618 Sep, [facility] [place] [facility] [address] [id number] [place] [address]- 7578 Sep, [facility] [place] [facility] [address] [id number] [place] [address]- 8452 Sep, [facility] [place] [facility] [address] [id number] [place] [address]- 5695 Aug, [facility] [place] [facility] [address] [id number] [place] [address]- 3342 Aug, [facility] [place] [facility] [address] [id number] [place] [address]- 1592 Aug, [facility] [place] [facility] [address] [id number] [place] [address]- 7120 Aug, [facility] [place] [facility] [address] [id number] [place] [address]- 0390 Aug, [facility] [place] [facility] [address] [id number] [place] [address]- 0098 Aug, [facility] [place] [facility] [address] [id number] [place] [address]- 5935 Aug, [facility] [place] [facility] [address] [id number] [place] [address]- 3615 Aug, [facility] [place] [facility] [address] [id number] [place] [address]- 9525 Aug, [facility] [place] [facility] [address] [id number] [place] [address]- 6464 Jul, [facility] [place] [facility] [address] [id number] [place] [address]- 3085 Jul, [facility] [place] [facility] [address] [id number] [place] [address]- 3677 Jul, [facility] [place] [facility] [address] [id number] [place] [address] 2546 Jul, [facility] [place] [facility] [address] [id number] [place] [address]- 6096 Jul, [facility] [place] [facility] [address] [id number] [place] [address]- 0746 Jul, [facility] [place] [facility] [address] [id number] [place] [address]- 4532 Jul, [facility] [place] [facility] [address] [id number] [place] [address]- 7906 Jul, [facility] [place] [facility] [address] [id number] [place] [address]- 7908 Jul, [facility] [place] [facility] [address] [id number] [place] [address]- 5906 Jul, [facility] [place] [facility] [address] [id number] [place] [address]- 5563 Jul, [facility] [place] [facility] [address] [id number] [place] [address]- 5087 Jul, [facility] [place] [facility] [address] [facility] [id number] [place] [address]- 9373 Jul, [facility] [place] [facility] [address] [id number] [place] [address] 2546 Jul, [facility] [place] [facility] [address] [id number] [place] [address]- 2544 Jul, [facility] [place] [facility] [address] [id number] [place] [address]- 0116 Jul, [facility] [place] [facility] [address] [id number] [place] [address]- 3506 Jun, [facility] [place] [facility] [address] [id number] [place] [address]- 5834 Jun, [facility] [place] [facility] [address] [id number] [place] [address]- 9657 Jun, [facility] [place] [facility] [address] [id number] [place] [address]- 7928 Jun, [facility] [place] [facility] [address] [id number] [place] [address]- 9913 Jun, [facility] [place] [facility] [address] [id number] [place] [address]- 8423 Jun, [facility] [place] [facility] [address] [id number] [place] [address]- 1212 May, [facility] [place] [facility] [address] [id number] [place] [address]- 8756 May, [facility] [place] [facility] [address] [id number] [place] [address]- 5155 May, [facility] [place] [facility] [address] [id number] [place] [address]- 7327 May, [facility] [place] [facility] [address] [id number] [place] [address]- 4890 Apr, [facility] [place] [facility] [address] [id number] [place] [address]- 7341 Apr, [facility] [place] [facility] [address] [id number], [place] [address]- 2093 Apr, [facility] [place] [facility] [address] [id number], [place] [address]- 1476 Apr, [facility] [place] [facility] [address] [id number] [place] [address]- 9537 Apr, [facility] [place] [facility] [address] [id number] [place] [address]- 2144 Apr, [facility] [place] [facility] [address] [id number] [place] [address]- 9582 Apr, [facility] [place] [facility] [address] [id number] [place] [address]- 5017 19 Apr, 2013 [facility] [place] [facility] [address] [id number] [place] [address]- 2898 18 Apr, 2013 [facility] [place] [facility] [address] [id number] [place] [address]- 7989 18 Apr, 2013 [facility] [place] [facility] [address] [id number] [place] [address]- 7149 12 Apr, 2013 [facility] [place] [facility] [address] [id number] [place] [address]- 1800 12 Apr, 2013 [facility] [place] [facility] [address] [id number] [place] [address]- 9444 28 Mar, 2013 [facility] [place] [facility] [address] [id number] [place] [address]- 4115 28 Mar, 2013 [facility] [place] [facility] [address] [id number] [place] [address]- 0548 16 Mar, 2013 [facility] [place] [facility] [address] [id number] [place] [address]- 7600 16 Mar, 2013 [facility] [place] [facility] [address] [id number] [place] [address]- 8743 15 Mar, 2013 [facility] [place] [facility] [address] [id number] [place] [address]- 7378 15 Mar, 2013 [facility] [place] [facility] [address] [id number] [place] [address]- 5100 27 Sep, 2012 [facility] [place] [facility] [address] [id number] [place] [address]- 2544 25 Sep, 2012 [facility] [place] [facility] [address] [id number] [place] [address]- 4267 25 Sep, 2012 [facility] [place] [facility] [address] [id number] [place] [address]- 2799 23 Sep, 2012 [facility] [place] [facility] [address] [id number] [place] [address] 17 Feb, 2013 [facility] [place] [facility] [address] [id number] [place] [address] Feb, [facility] [place] [facility] [address] [id number] [place] [address] Feb, [facility] [place] [facility] [address] [id number] [place] [address] Jan, [facility] [place] [facility] [address] [id number] [place] [address] Jan, [facility] [place] [facility] [address] [id number] [place] [address] Jan, [facility] [place] [facility] [address] [id number] [place] [address] Jan, [facility] [place] [facility] [address] [id number] [place] [address] Jan, [facility] [place] [facility] [address] [id number] [place] [address] Jan, [facility] [place] [facility] [address] [id number] [place] [address] Jan, [facility] [place] [facility] [address] [id number] [place] [address] Dec, [facility] [place] [facility] [address] [id number] [place] [address] Dec, [facility] [place] [facility] [address] [id number] [place] [address]683 Dec, [facility] [place] [facility] [address] [id number] [place] [address] Dec, [facility] [place] [facility] [address] [id number] [place] [address]704 Dec, [facility] [place] [facility] [address] [id number] [place] [address] 8947 Dec, [facility] [place] [facility] [address] [id number] [place] [address] Nov, [facility] [address] [id number] [place] [address] Nov, [facility] [address] [id number] [place] [address] Nov, [facility] [address] [id number] [place] [address] 1618 Nov, [facility] [place] [facility] [address] [id number] [place] [address]- 4568 October, [facility] [address] [id number] [place] [address] 8034 October, [facility] [address] [id number] [place] [address]- 2071 October, [facility] [address] [id number] [place] [address] 6[address] October, [facility] [address] [id number] [place] [address] Sep, [facility] [address] [id number] [place] [address]67 Sep, [facility] [place] [facility] [address] [id number] [place] [address]- 2827 Sep, [facility] [place] [facility] [address] [id number] [place] [address] Sep, [facility] [place] [facility] [address] [id number] [place] [address] Sep, [facility] [place] [facility] [address] [id number] [place] [address] Sep, [facility] [place] [facility] [address] [id number] [place] [address] 9377 Sep, [facility] [place] [facility] [address] [id number] [place] [address] 7033 Sep, [facility] [place] [facility] [address] [id number] [place] [address] 8941 13 Aug, 2012 [facility] [address] [id number] [place] [address] 13 Aug, 2012 [facility] [place] [facility] [address] [id number] [place] [address] 7926 05 Aug, 2012 [facility] [address] [id number] [place] [address] 18 Jul, 2012 [facility] [address] [id number] [place] [address]44 08 Jul, 2012 [facility] [address] [id number] [place] [address] 07 Jul, 2012 [facility] [address] [id number] [place] [address] 2543 06 Jul, 2012 [facility] [address] [id number] [place] [address] 05 Jul, 2012 [facility] [address] [id number] [place] [address] Jun, [facility] [address] [id number] [place] [address] 68[address] Jun, [facility] [address] [id number] [place] [address] 08 Jun, 2012 [facility] [address] [id number] [place] [address]598 May, [facility] [address] [id number] [place] [address] 2546 May, [facility] [place] [facility] [address] [id number] [place] [address]- 2546 May, [facility] [place] [facility] [address] [id number] [place] [address] 2546 May, [facility] [place] [facility] [address] [id number] [place] [address] May, [facility] [place] [facility] [address] [id number] [place] [address] 7663 May, [facility] [place] [facility] [address] [id number] [place] [address]- 6754 May, [facility] [place] [facility] [address] [id number] [place] [address]- 8246 Apr, [facility] [place] [facility] [address] [id number] [place] [address] 2820 Apr, [facility] [place] [facility] [address] [id number] [place] [address]387 Apr, [facility] [place] [facility] [address] [id number] [place] [address] 3420 Apr, [facility] [place] [facility] [address] [id number] [place] [address] 6278 Apr, [facility] [place] [facility] [address] [id number], [place] [address] Apr, [facility] [place] [facility] [address] [id number], [place] [address] Apr, [facility] [place] [facility] [address] [facility] [id number] [address] 28[address] Apr, [facility] [place] [facility] [address] [id number], [place] [address] 8[address] Apr, [facility] [place] [facility] [address] [id number], [place] [address] 59[address] Apr, [facility] [place] [facility] [address] [id number], [place] [address] 5767 Apr, [facility] [place] [facility] [address] [id number], [place] [address]34 Mar, [facility] [place] [facility] [address] [id number], [place] [address] Mar, [facility] [place] [facility] [address] [id number] [place] [address]- 0156 23 Mar, 2011 [facility] [place] [facility] [address] [id number] [place] [address]- 0735 23 Mar, 2011 [facility] [place] [facility] [address] [id number] [place] [address]- 4166 23 Mar, 2011 [facility] [place] [facility] [address] [id number] [place] [address] 23 Mar, 2011 [facility] [place] [facility] [address] [id number] [place] [address] 19 Mar, 2011 [facility] [place] [facility] [address] [id number] [place] [address] 19 Mar, 2011 [facility] [place] [facility] [address] [id number] [place] [address] 3056 16 Mar, 2012 [facility] [place] [facility] [address] [id number] [place] [address] 4[address] 16 Mar, 2011 [facility] [place] [facility] [address] [id number] [place] [address] 57[address] 04 Mar, 2012 [facility] [place] [facility] [address] [id number] [place] [address] 1389 28 Sep, 2011 [facility] [place] [facility] [address] [id number] [place] [address]44 27 Sep, 2011 [facility] [place] [facility] [address] [id number] [place] [address] 2546 27 Sep, 2011 [facility] [place] [facility] [address] [id number] [place] [address] 2542 26 Sep, 2011 [facility] [place] [facility] [address] [id number] [place] [address] 2546 24 Sep, 2011 [facility] [place] [facility] [address] [facility] [id number] [place] [address]46 19 Sep, 2011 [facility] [place] [facility] [address] [id number] [place] [address] 2540 Feb, [facility] [place] [facility] [address] [id number] [place] [address] Feb, [facility] [place] [facility] [address] [id number] [place] [address] Feb, [facility] [place] [facility] [address] [id number] [place] [address] 97[address] Jan, [facility] [place] [facility] [address] [id number] [place] [address]- 17[address] Jan, [facility] [place] [facility] [address] [id number] [place] [address] Jan, [facility] [place] [facility] [address] [id number] [place] [address] 1433 Jan, [facility] [place] [facility] [address] [id number] [place] [address] 4394 Dec, [facility] [place] [facility] [address] [id number] [place] [address] Dec, [facility] [place] [facility] [address] [id number] [place] [address]- [address]476 Dec, [facility] [place] [facility] [address] [id number] [place] [address] 9104 Dec, [facility] [place] [facility] [address] [id number] [place] [address] 5665 Dec, [facility] [place] [facility] [address] [id number] [place] [address] 4039 Dec, [facility] [place] [facility] [address] [id number] [place] [address] Dec, [facility] [place] [facility] [address] [id number] [place] [address]- [address]102 Dec, [facility] [place] [facility] [address] [id number] [place] [address]- 7826 Dec, [facility] [place] [facility] [address] [id number] [place] [address]- 9074 Dec, [facility] [place] [facility] [address] [id number] [place] [address]- 6582 Dec, [facility] [place] [facility] [address] [id number] [place] [address] 4150 Dec, [facility] [place] [facility] [address] [id number] [place] [address]- 9285 Dec, [facility] [place] [facility] [address] [id number] [place] [address] 3495 Dec, [facility] [place] [facility] [address] [id number] [place] [address] 1333 Nov, [facility] [place] [facility] [address] [id number] [place] [address] Nov, [facility] [place] [facility] [address] [id number] [place] [address]- 8720 Nov, [facility] [place] [facility] [address] [id number] [place] [address]220 Nov, [facility] [place] [facility] [address] [id number] [place] [address]- 9251 Nov, [facility] [place] [facility] [address] [id number] [place] [address] 4833 Nov, [facility] [place] [facility] [address] [id number] [place] [address]- 2689 October, [facility] [place] [facility] [address] [id number] [place] [address] 9155 October, [facility] [place] [facility] [address] [id number] [place] [address] 6532 October, [facility] [place] [facility] [address] [id number] [place] [address]- 3324 October, [facility] [place] [facility] [address] [id number] [place] [address]- 1630 Sep, [facility] [place] [facility] [address] [id number] [place] [address] 2417 17 Sep, 2011 [facility] [address] [id number] [place] [address]- 7162 13 Sep, 2011 [facility] [place] [facility] [address] [id number] [place] [address]- 8546 09 Sep, 2011 [facility] [address] [id number] [place] [address]- 5736 03 Sep, 2011 [facility] [address] [id number] [place] [address] 3806 26 Aug, 2011 [facility] [address] [id number] [place] [address]- 2218 26 Aug, 2011 [facility] [address] [id number] [place] [address]- 7889 Aug, [facility] [address] [id number] [place] [address]- 3285 Aug, [facility] [address] [id number] [place] [address]- 2888 13 Aug, 2011 [facility] [address] [id number] [place] [address]- 7345 Aug, [facility] [address] [id number] [place] [address] 2086 Aug, [facility] [address] [id number] [place] [address]- 3415 16 Jul, 2011 [facility] [address] [id number] [place] [address]- 8986 16 Jul, 2011 [facility] [place] [facility] [address] [id number] [place] [address] 8326 15 Jul, 2011 [facility] [place] [facility] [address] [id number] [place] [address] 0106 15 Jul, 2011 [facility] [place] [facility] [address] [id number] [place] [address] Jun, [facility] [address] [id number] Jun, [facility] [address] [id number] [place] [address] Jun, [facility] [address] [id number] [place] [address]- 0744 Jun, [facility] [address] [id number] [place] [address] Jun, [facility] [address] [id number] [place] [address]- 0635 Jun, [facility] [address] [id number] [place] [address]- 0653 Jun, [facility] [address] [facility] [id number] [place] [address]- 4353 Jun, [facility] [address] [id number] [place] [address]- 6824 May, [facility] [address] [id number] [place] [address]- 6330 May, [facility] [address] [facility] [id number] [place] [address]- 7920 May, [facility] [address] [facility] [id number] [place] [address]- 4763 May, [facility] [address] [id number] [place] [address]- 3415 May, [facility] [address] [id number] [place] [address]- 5467 May, [facility] [address] [id number] [place] [address]- 0727 May, [facility] [address] [id number] [place] [address]- 4190 Apr, [facility] [address] [id number] [place] [address]- 6781 17 Apr, 2011 [facility] [place] [facility] [address] [id number] [place] [address]- 2128 Apr, [facility] [place] [facility] [address] [id number] [place] [address]- 6726 27 Mar, 2011 [facility] [place] [facility] [address] [id number] [place] [address]- 6376 20 Mar, 2011 [facility] [place] [facility] [address] [id number] [place] [address]- 9694 14 Mar, 2011 [facility] [place] [facility] [address] [id number] [place] [address]- 6825 Mar, [facility] [place] [facility] [address] [id number] [place] [address]- 7994 10 Mar, 2011 [facility] [place] [facility] [address] [id number] [place] [address]- 3552 10 Mar, 2011 [facility] [place] [facility] [address] [id number] [place] [address]- 4802 10 Mar, 2011 [facility] [place] [facility] [address] [id number] [place] [address]- 2084 Jan, [facility] [place] [facility] [address] [id number] [place] [address]- 2846 May, [facility] [place] [facility] [address] [id number] [place] [address]- 4631 May, [facility] [place] [facility] [address] [id number] [place] [address]- 9142 13 May, 2010 [facility] [place] [facility] [address] [id number] [place] [address] 2546 13 May, 2010 [facility] [place] [facility] [address] [id number] [place] [address]- 2547 10 May, 2010 [facility] [place] [facility] [address] [id number] [place] [address]- 2546 06 May, 2010 [facility] [place] [facility] [address] [id number] [place] [address]- 2700 29 Apr, 2010 [facility] [place] [facility] [address] [id number] [place] [address]- 7201 Apr, [facility] [place] [facility] [address] [id number] [place] [address]- 5137 Apr, [facility] [place] [facility] [address] [id number] [place] [address]- 9780 Apr, [facility] [place] [facility] [address] [id number] [place] [address]- 0198 15 Apr, 2010 [facility] [place] [facility] [address] [id number] [place] [address], [place] [address]- 9412 Apr, [facility] [place] [facility] [address] [facility] [id number] [place] [address]- 8987 Apr, [facility] [place] [facility] [address] [id number] [place] [address]- 2640 Apr, [facility] [place] [facility] [address] [id number] [place] [address]- 4933 Apr, [facility] [place] [facility] [address] [facility] [id number] [place] [address]- 6304 Apr, [facility] [place] [facility] [address] [facility] [id number] [place] [address]- 4915 Mar, [facility] [place] [facility] [address] [id number] [place] [address]- 6126 Mar, [facility] [place] [facility] [address] [id number], [place] [address]- 8394 Mar, [facility] [place] [facility] [address] [id number] [place] [address]- 5888 Mar, [facility] [place] [facility] [address] [facility] [id number] [place] [address]- 1924 Mar, [facility] [place] [facility] [address] [id number] [address]- 9345 Dec, [facility] [address] [facility] [id number] [place] [id number] Nov, IMMUNIZATIONS No Known Immunizations SOCIAL HISTORY Never Assessed REASON FOR VISIT Controlled Med Refill PLAN OF CARE VITAL SIGNS MEDICATIONS Medication Instructions Dosage Frequency Start Date End Date Duration Status Oxycodone HCl 5 MG Orally every 8 hrs 1 tablet as needed 8h Apr, Apr, 5 days Active RESULTS No Results PROCEDURES No [...] surgery and skin graft, cholecysectomy Hospitalization History [facility]2016 [facility] 08[facility]2017 [facility] History [facility] 01/2018
--- OUTSIDE RECORDS SUMMARY | 2018-07-05 14:47 | XMS REPORT ---
Author Author NAHOMY BETH Organization [facility] Address [address] [place] [address] Care Team Providers Care Director [facility] Name Role Phone NAHOMY BETH Unavailable PROBLEMS Type Condition ICD9-CM Code WTF08-DV Code Onset Dates Condition Status SNOMED Code Problem Anemia, unspecified type D64.9 Active 327863745 Problem Personality disorder F60.9 Active 54681587 Problem Factitious disorder imposed on self, recurrent episode F68.10 Active 80110375 Problem Ventral hernia without obstruction or gangrene K43.9 Active 135943423 Problem Allergic state, subsequent encounter T78.40XD Active 262115094 Problem Anxiety F41.9 Active 12350190 Problem Age-related osteoporosis without current pathological fracture M81.0 Active 50464133 Problem Unspecified psychosis not due to a substance or known physiological condition F29 Active 36339573 Problem Iron deficiency anemia, unspecified iron deficiency anemia type D50.9 Active 30890632 Problem History of CVA with residual deficit I69.30 Active 502521696 Problem Seizure disorder G40.909 Active 865766797 Problem Perennial allergic rhinitis, unspecified allergic rhinitis trigger J30.89 Active 964652811 Problem Chronic kidney disease, unspecified stage N18.9 Active 309982476 Problem Back pain M54.9 Active 941249444 Problem Gastroesophageal reflux disease without esophagitis K21.9 Active 127837926 Problem Insomnia, unspecified type G47.00 Active 108498587 Problem History of colon polyps Z86.010 Active 540238642 ALLERGIES No Information ENCOUNTERS Encounter Location Date Diagnosis [facility] [address] [facility] [id number] [address] Apr, [facility] [address] [facility] [id number] [address] 9654 Mar, Back pain M54.9 [facility] [address] [address] 1721 Mar, [facility] [id number] [place] [address] 19225- 2748 Mar, [facility] [address] [address] 2137 Mar, [facility] [id number] [place] [address] 21642- 2797 Mar, Back pain M54.9 [facility] [id number] [place] [address] 43800- 4324 Mar, Back pain M54.9 and Encounter for immunization Z23 [facility] [id number] [place] [address] 24551- 1818 Feb, [facility] [id number] [place] [address] 65516- 7225 Feb, Unspecified psychosis not due to a substance or known physiological condition F29 ; Personality disorder F60.9 and Factitious disorder imposed on self, recurrent episode F68.10 [facility] [address] [place] [address] 75631- 8318 Feb, Back pain M54.9 [facility] [address] [place] [address] 29409- 4406 Jan, Unspecified psychosis not due to a substance or known physiological condition F29 ; Personality disorder F60.9 and Factitious disorder imposed on self, recurrent episode F68.10 [facility] [address] [address] 4606 Jan, [facility] [id number] [place] [address] 75540- 0934 Jan, Back pain M54.9 and Seizure disorder G40.909 [facility] [address] [address] 6651 Jan, Back pain M54.9 [facility] [address] [address] 1514 Jan, Back pain M54.9 [facility] [id number] [place] [address] 59611- 0985 Jan, [place] [id number] [place] [address] 58182- 3059 Jan, Unspecified psychosis not due to a substance or known physiological condition F29 ; Personality disorder F60.9 and Factitious disorder imposed on self, recurrent episode F68.10 [place] [id number] [place] [address] 59301- 2566 Dec, Back pain M54.9 ; Seizure disorder G40.909 ; Ventral hernia without obstruction or gangrene K43.9 and History of CVA with residual deficit I69.30 [facility] [id number] [place] [address] 22437- 1956 Dec, Unspecified psychosis not due to a substance or known physiological condition F29 ; Personality disorder F60.9 and Factitious disorder imposed on self, recurrent episode F68.10 [place] [facility] [id number] [place] [address] 25801- 6571 Dec, [facility] [facility] [id number] [place] [address] 03916- 7414 Dec, Back pain M54.9 [facility] [facility] [id number] [place] [address] 49905- 2433 Dec, Factitious disorder imposed on self, recurrent episode F68.10 ; Personality disorder F60.9 ; Insomnia, unspecified type G47.00 and Anxiety F41.9 [place] [id number] [place] [address] 16868- 3934 Nov, Unspecified psychosis not due to a substance or known physiological condition F29 ; Personality disorder F60.9 and Factitious disorder imposed on self, recurrent episode F68.10 [place] [id number] [place] [address] 30193- 4688 Nov, Back pain M54.9 [facility] [address] [address]- 7970 Nov, Unspecified psychosis not due to a substance or known physiological condition F29 ; Personality disorder F60.9 and Factitious disorder imposed on self, recurrent episode F68.10 [facility] [address] [place] [address] 24842- 5371 October, [facility] [id number] [place] [address] 45791- 3393 October, [facility] [id number] [place] [address] 56450- 6735 October, Unspecified psychosis not due to a substance or known physiological condition F29 ; Personality disorder F60.9 and Factitious disorder imposed on self, recurrent episode F68.10 [facility] [facility] [id number] [place] [address] 68723- 4127 October, Back pain M54.9 [facility] [facility] [id number] [place] [address] 36043- 5729 October, Seizure disorder G40.909 ; Back pain M54.9 and Allergic state, subsequent encounter T78.40XD [facility] [address] [place] [address] 03027- 4684 October, [facility] [id number] [place] [address] 97865- 4837 Sep, Back pain M54.9 [place] [id number] [place] [address] 81101- 4411 Sep, Unspecified psychosis not due to a substance or known physiological condition F29 ; Personality disorder F60.9 and Factitious disorder imposed on self, recurrent episode F68.10 [place] [address] [address]- 2215 Sep, [facility] [facility] [id number] [place] [address] 35860 2546 Sep, [facility] [id number] 9382 Sep, [facility] [address] 8730 Sep, [facility] [id number] [address]- 3321 Aug, [facility] [id number] [place] [address] 67286- 7251 Aug, Back pain M54.9 [facility] [id number] [place] [address] 579205- 4006 Aug, Factitious disorder imposed on self, recurrent episode F68.10 ; Personality disorder F60.9 ; Insomnia, unspecified type G47.00 and Anxiety F41.9 [facility] [id number] [address]- 8098 Aug, Back pain M54.9 ; Iron deficiency anemia, unspecified iron deficiency anemia type D50.9 ; Chronic kidney disease, unspecified stage N18.9 and Breast cancer screening Z12.31 [facility] [id number] [place] [id number] Jul, Back pain M54.9 [facility] [address] [id number] [id number] Jul, [facility] [address] [id number] [id number] Jul, [facility] [address] [id number] [id number] Jun, Back pain M54.9 [facility] [id number] [place] [id number] Jun, [facility] [address] [id number] [id number] Jun, Back pain M54.9 [facility] [address] [place] [address] 74015- 2750 Jun, Back pain M54.9 ; Seizure disorder G40.909 and Age-related osteoporosis without current pathological fracture M81.0 [place] [id number] [place] [address] [id number] May, [place] [id number] [place] [address] 22696- 8310 May, Back pain M54.9 [facility] [facility] [id number] [place] [address] 37215- 3492 Apr, Back pain M54.9 ; Encounter for immunization Z23 ; Gastroesophageal reflux disease without esophagitis K21.9 ; Age-related osteoporosis without current pathological fracture M81.0 and Chronic pruritus L29.9 [place] [id number] [place] [address] 58808- 6912 Apr, History of CVA with residual deficit I69.30 [facility] [facility] [id number] [place] [address] 17685- 7514 Apr, Factitious disorder imposed on self, recurrent episode F68.10 and Personality disorder F60.9 [place] [id number] [place] [address] [id number] Apr, Back pain M54.9 [facility] [facility] [address] [place] [address] 89266- 3146 Mar, Factitious disorder imposed on self, recurrent episode F68.10 [place] [address] [place] [address] 15213- 0747 Mar, [place] [id number] [place] [address] [id number] Mar, [place] [id number] [place] [address] [id number] Mar, Back pain M54.9 [place] [id number] [place] [address] 64357- 2186 Mar, Back pain M54.9 ; Seizure disorder G40.909 and Age-related osteoporosis without current pathological fracture M81.0 [facility] [address] [place] [address] 64951- 7269 Feb, History of CVA with residual deficit I69.30 [facility] [address] [place] [address] 28926- 2291 Feb, Factitious disorder imposed on self, recurrent episode F68.10 and Personality disorder F60.9 [facility] [address] [place] [address] 11043- 3096 15 Feb, 2017 Back pain M54.9 [facility] [id number] [place] [address] 67251- 8881 Feb, [facility] [id number] [place] [address] 53491- 5334 Jan, [facility] [address] [place] [address] [id number] Jan, Age- related osteoporosis without current pathological fracture M81.0 and Allergic state, subsequent encounter T78.40XD [facility] [address] [place] [address] 44159- 8932 Jan, Factitious disorder imposed on self, recurrent episode F68.10 and Personality disorder F60.9 [facility] [address] [place] [address] 33589- 9770 Dec, Back pain M54.9 [facility] [address] [place] [address] 94570- 3543 Dec, Personality disorder F60.9 and Factitious disorder imposed on self, recurrent episode F68.10 [facility] [id number] [place] [address] [id number] Dec, Back pain M54.9 [facility] [id number] [place] [address] [id number] Dec, [facility] [id number] [place] [address] [id number] Dec, [facility] [address] [address]- 8773 Dec, [facility] [address] [address] 5202 Nov, [facility] [address] [address]- 7146 Nov, Back pain M54.9 ; Anemia, unspecified type D64.9 and History of colon polyps Z86.010 [facility] [address] [address]- 4431 Nov, Back pain M54.9 [facility] [id number] [place] [address] [id number] October, Back pain M54.9 [facility] and [address] [id number] October, Back pain M54.9 and Gastroesophageal reflux disease without esophagitis K21.9 [facility] [id number] [place] [address] [id number] Sep, [facility] [id number] [place] [address] 06047- 7270 Sep, [facility] [address] [address]- 6057 Sep, [facility] [address] [address]- 6473 Sep, [facility] [address] [address]- 6182 Sep, [facility] [id number] [place] [address] 83545- 9976 Sep, Seizure disorder G40.909 [facility] [address] [address]- 2522 Sep, Back pain M54.9 [facility] [id number] [address]- 8044 Sep, [facility] [id number] [place] [address] 509951- 9666 31 Aug, 2016 Back pain M54.9 [facility] [address] [address]- 2243 29 Aug, 2016 Seizure disorder G40.909 [facility] [id number] [place] [address] [id number] 17 Aug, 2016 [facility] [id number] [place] [address] [id number] 16 Aug, 2016 Back pain M54.9 [facility] [id number] [place] [address] [id number] 14 Aug, 2016 Back pain M54.9 [facility] [id number] [id number] 06 Aug, 2016 Back pain M54.9 [facility] [address] [place] [address] [id number] Jul, Weakness R53.1 [facility] [id number] [place] [address] 36506- 4262 Jul, Seizure disorder G40.909 [facility] [address] [place] [address] 15198- 3756 Jul, [facility] [id number] [place] [address] 86993- 0953 Jul, Breast cancer screening Z12.39 [facility] [address] [address]- 8473 Jul, [facility] [id number] [place] [address] 04331- 9680 Jul, [facility] [address] [address]- 7253 17 Jul, 2016 [facility] [address] [place] [address] 23364- 3994 Jul, Seizure disorder G40.909 ; Fatigue, unspecified type R53.83 ; Perennial allergic rhinitis, unspecified allergic rhinitis trigger J30.89 and Chronic kidney disease, unspecified stage N18.9 [facility] [address] [place] [address] 91251- 0376 Jul, [facility] [address] [place] [address] 88241- 6663 Jul, Seizure disorder G40.909 [facility] [address] [place] [address] 35445- 8978 Jun, [facility] [id number] [place] [address] 95985- 2339 Jun, [address] [id number] Jun, Perennial allergic rhinitis, unspecified allergic rhinitis trigger J30.89 [facility] [id number] [place] [address] [id number] Jun, [facility] [id number] [place] [address] 71889- 3620 Jun, Seizure disorder G40.909 [facility] [id number] [place] [address] [id number] Jun, [facility] [id number] [place] [address] [id number] May, [facility] [address] [place] [address] 21860- 6478 May, [facility] [address] [place] [address] 65253- 3895 May, [facility] [id number] [place] [address] 98157- 0117 May, [facility] [address] [address]- 3116 May, History of CVA with residual deficit I69.30 [facility] [address] [address]- 2582 May, [facility] [id number] [place] [address] 52859- 3436 May, [facility] [id number] [place] [address] 31194- 7928 May, [facility] [id number] [place] [address] 09333- 9412 May, Seizure disorder G40.909 [facility] [address] [place] [address] 31287- 1135 May, [employer] [address] [place] [address] May, Back pain M54.9 and Seizure disorder G40.909 [facility] [id number] [place] [address] 55313- 7264 Apr, [facility] [id number] [place] [address] 35283- 1936 Apr, Back pain M54.9 [facility] [id number] [place] [address] 16758- 2772 Mar, [employer] [address] [place] [address] Mar, Insomnia, unspecified type G47.00 [facility] [address] [place] [address] 11552- 9950 Mar, [facility] [address] [place] [address] 85074- 0561 Feb, [facility] [id number] [place] [address] 99699- 6176 Feb, [facility] [id number] [place] [address] 57535- 2699 Feb, [facility] [id number] [place] [address] 20755- 6527 Jan, [facility] [address] [address]- 5080 Jan, [facility] [address] [place] [address] Jan, Seizure disorder G40.909 and Back pain M54.9 [facility] [id number] [place] [address] 18437- 8596 Dec, [facility] [id number] [place] [address] 07366- 2904 Dec, [facility] [id number] [place] [address] 64434- 2113 Dec, [facility] [id number] [place] [address] 27933- 1514 Nov, [facility] [id number] [place] [address] 23736- 0776 Nov, [facility] [id number] [place] [address] 77645- 9540 Nov, Back pain M54.9 [facility] [id number] [place] [address] 34839- 3657 October, [facility] [id number] [place] [address] 21768- 7079 October, Back pain M54.9 [facility] [id number] [place] [address] 05813- 9941 October, Seizure disorder G40.909 and B12 deficiency E53.8 [facility] [address] [place] [address] 35322- 0711 Sep, History of CVA with residual deficit I69.30 [facility] [id number] [place] [address] 25954- 9373 Sep, [facility] [address] [place] [address] 17321- 6590 Sep, [facility] [address] [address]- 1672 Sep, Back pain M54.9 [facility] [id number] [place] [address] 79783- 3066 Sep, Seizure disorder G40.909 [facility] [id number] [place] [address] 14882- 1011 Aug, Back pain M54.9 [facility] [id number] [place] [address] 61906- 9652 18 Aug, 2015 Seizure disorder G40.909 [facility] [id number] [place] [address] 49232- 1018 16 Aug, 2015 Back pain M54.9 [facility] [id number] [place] [address] 63535- 5225 14 Aug, 2015 Heart failure, unspecified I50.9 [facility] [id number] [place] [address] 19132- 3012 14 Aug, 2015 Medication monitoring encounter Z51.81 [facility] [id number] [place] [address] 70742- 4187 15 Jul, 2015 [facility] [id number] [place] [address] [phone]- [phone] 09 Jul, 2015 Seizure disorder G40.909 [facility] [id number] [place] [address] [phone] 05 Jul, 2015 Back pain M54.9 [facility] [id number] [place] [address] [id number] Jun, [facility] [id number] [place] [address] [id number] Jun, [facility] [id number] [place] [address] [id number] Jun, Mental status change R41.82 ; History of CVA with residual deficit I69.30 ; Back pain M54.9 and Seizure disorder G40.909 [facility] [address] [facility] [id number] [phone] Jun, [facility] [address] [facility] [id number] [phone] May, [facility] [address] [facility] [id number] [address] Apr, [facility] [address] [facility] [id number] [place] [address] 2541 Apr, Medication monitoring encounter Z51.81 [facility] [address] [facility] [id number] [place] [address] 7[address] Mar, Vomiting R11.10 [facility] [id number] [address] 43[address] Mar, [facility] [id number] [place] [address]- 5612 Feb, [facility] [address] [facility] [id number] [address] 2545 Feb, UTI (urinary tract infection) 599.0 [facility] [id number] [address] 8[address] Jan, [facility] [id number] [address] 7076 Jan, [facility] [address] [id number] [address] 2546 Jan, [facility] [address] [facility] [id number] [place] [address] 2545 Dec, [facility] [address] [id number] [address] 2546 Dec, [facility] [address] [facility] [id number] [place] [address] 2546 Dec, [facility] [address] [id number] [address] 7675 Dec, [facility] [place] [facility] [address] [facility] [id number] [place] [address]- 5093 Nov, UNKNOWN Nov, [facility] [place] [facility] [address] [facility] [id number] [place] [address] 1586 October, [facility] [place] [facility] [address] [facility] [id number] [place] [address]- 7776 Sep, [facility] [place] [facility] [address] [facility] [id number] [place] [address]- 54[address] Sep, [facility] [place] [facility] [address] [facility] [id number] [place] [address]- 8250 Aug, [facility] [place] [facility] [address] [facility] [id number] [place] [address]- 3182 Aug, [facility] [place] [facility] [id number] [place] [address] 3[address] Jul, [facility] [place] [facility] [address] [facility] [id number] [place] [address]- 1329 Jul, [facility] [place] [facility] [id number] [place] [address]- 8768 Jul, [facility] [place] [facility] [address] [id number] [address]- 8703 Jul, [facility] [place] [facility] [address] [id number] [address]- 1410 Jul, [facility] [place] [facility] [address] [facility] [id number] [place] [address]- 0313 Jun, [facility] [place] [facility] [address] [facility] [id number] [place] [address]- 4993 Jun, [facility] [place] [facility] [address] [facility] [id number] [place] [address]- 5196 Jun, [facility] [place] [facility] [address] [facility] [id number] [place] [address]- 1370 Jun, [facility] [place] [facility] [address] [id number] [place] [address]- 2602 Jun, [facility] [place] [facility] [address] [id number] [place] [address]- 7991 Jun, [facility] [place] [facility] [address] [id number] [place] [address]- 3598 Jun, [facility] [place] [facility] [address] [id number] [place] [address]- 7660 Jun, [facility] [place] [facility] [address] [id number] [place] [address]- 1187 Jun, [facility] [place] [facility] [address] [id number] [place] [address]- 2994 Jun, [facility] [place] [facility] [address] [id number] [place] [address]- 0248 Jun, [facility] [place] [facility] [address] [id number] [place] [address]- 2906 Jun, [facility] [place] [facility] [address] [id number] [place] [address]- 9206 Jun, [facility] [place] [facility] [address] [id number] [place] [address]- 3291 Jun, [facility] [place] [facility] [address] [id number] [place] [address]- 6269 Jun, [facility] [place] [facility] [address] [id number] [place] [address]- 1210 Jun, [facility] [place] [facility] [address] [id number] [place] [address]- 3347 Jun, [facility] [place] [facility] [address] [id number] [place] [address]- 1266 Jun, [facility] [place] [facility] [address] [id number] [place] [address]- 5047 May, [facility] [place] [facility] [address] [id number] [place] [address]- 0496 May, [facility] [place] [facility] [address] [id number] [place] [address]- 5588 May, [facility] [place] [facility] [address] [id number] [place] [address]- 2173 May, [facility] [place] [facility] [address] [id number] [place] [address]- 4717 May, [facility] [place] [facility] [address] [id number] [place] [address]- 9566 May, [facility] [place] [facility] [address] [id number] [place] [address]- 2376 May, [facility] [place] [facility] [address] [id number] [place] [address]- 6519 May, [facility] [place] [facility] [address] [id number] [place] [address]- 0006 May, [address] [place] [id number] May, [facility] [place] [facility] [address] [id number] [place] [address]- 5227 May, [facility] [place] [facility] [address] [id number] [place] [address]- 6647 May, [facility] [place] [facility] [address] [id number] [place] [address]- 9640 May, [facility] [place] [facility] [address] [id number] [address]- 1656 Apr, [facility] [place] [facility] [address] [id number] [place] [address]- 4070 Apr, [facility] [place] [facility] [address] [id number] [place] [address]- 9906 Apr, [facility] [place] [facility] [address] [id number] [place] [address]- 4548 Apr, [facility] [place] [facility] [address] [id number] [place] [address]- 6148 Apr, [facility] [place] [facility] [address] [id number] [place] [address]- 5776 Apr, [facility] [place] [facility] [address] [id number] [place] [address]- 0664 Mar, [facility] [place] [facility] [address] [id number] [place] [address]- 9388 Mar, [facility] [place] [facility] [address] [id number] [place] [address]- 3574 Mar, [facility] [place] [facility] [address] [id number] [place] [address]- 8528 Mar, [facility] [place] [facility] [address] [id number] [place] [address]- 8049 Mar, [facility] [place] [facility] [address] [id number] [place] [address]- 4054 Mar, [facility] [place] [facility] [address] [id number] [place] [address]- 7388 24 Feb, 2013 [facility] [place] [facility] [address] [id number] [place] [address]- 0767 24 Feb, 2014 [facility] [place] [facility] [address] [id number] [place] [address]- 6890 23 Feb, 2013 [facility] [place] [facility] [address] [id number] [place] [address]- 4391 23 Feb, 2013 [facility] [place] [facility] [address] [id number] [place] [address]- 8682 19 Feb, 2013 [facility] [place] [facility] [address] [id number] [place] [address]- 0312 19 Feb, 2013 [facility] [place] [facility] [address] [id number] [place] [address]- 0330 19 Feb, 2013 [facility] [place] [facility] [address] [id number] [place] [address]- 7175 19 Feb, 2013 [facility] [place] [facility] [address] [id number] [place] [address]- 0779 Feb, [facility] [place] [facility] [address] [id number] [place] [address]- 2238 Feb, [facility] [address] [facility] [facility] [place] [id number] Feb, [facility] [place] [facility] [address] [id number] [place] [address]- 6842 Feb, [facility] [place] [facility] [address] [id number] [place] [address]- 6351 Jan, [facility] [place] [facility] [address] [id number] [place] [address]- 6748 Jan, [facility] [place] [facility] [address] [id number] [place] [address]- 3022 Dec, [facility] [place] [facility] [address] [id number] [place] [address]- 9619 Dec, [facility] [place] [facility] [address] [id number] [place] [address]- 6485 Dec, [facility] [place] [facility] [address] [id number] [place] [address]- 2905 Dec, [facility] [place] [facility] [address] [id number] [place] [address]- 6131 Dec, [facility] [place] [facility] [address] [id number] [place] [address]- 5174 Dec, [facility] [place] [facility] [address] [id number] [place] [address]- 3662 Dec, [facility] [place] [facility] [address] [id number] [place] [address]- 5528 Dec, [facility] [place] [facility] [address] [id number] [place] [address]- 2174 Dec, [facility] [place] [facility] [address] [id number] [place] [address]- 0565 Dec, [facility] [place] [facility] [address] [id number] [place] [address]- 6088 Nov, [facility] [place] [facility] [address] [id number] [place] [address]- 6551 Nov, [facility] [place] [facility] [address] [id number] [place] [address]- 1027 Nov, [facility] [place] [facility] [address] [id number] [place] [address]- 2946 Nov, [facility] [place] [facility] [address] [id number] [place] [address]- 3555 Nov, [facility] [place] [facility] [address] [id number] [place] [address]- 1258 Nov, [facility] [place] [facility] [address] [id number] [place] [address]- 7922 Nov, [facility] [place] [facility] [address] [id number] [place] [address]- 5873 Nov, [facility] [place] [facility] [address] [id number] [place] [address]- 1319 Nov, [facility] [place] [facility] [address] [id number] [place] [address]- 7330 Nov, [facility] [place] [facility] [address] [id number] [place] [address]- 0796 Nov, [facility] [place] [facility] [address] [id number] [place] [address]- 0834 Nov, [facility] [place] [facility] [address] [id number] [place] [address]- 9579 Nov, [facility] [place] [facility] [address] [id number] [place] [address]- 3135 Nov, [facility] [place] [facility] [address] [id number] [place] [address]- 0565 October, [facility] [place] [facility] [address] [id number] [place] [address]- 8650 October, [facility] [address] [id number] [place] [address]- 0631 October, [facility] [place] [facility] [address] [id number] [place] [address]- 6359 October, [facility] [place] [facility] [address] [id number] [place] [address]- 6930 October, [facility] [place] [facility] [address] [id number] [place] [address]- 1539 October, [facility] [place] [facility] [address] [id number] [place] [address]- 4964 October, [facility] [place] [facility] [address] [id number] [place] [address]- 9636 October, [facility] [place] [facility] [address] [id number] [place] [address]- 4561 October, [facility] [place] [facility] [address] [id number] [place] [address]- 8583 October, [facility] [place] [facility] [address] [id number] [place] [address]- 1009 Sep, [facility] [place] [facility] [address] [id number] [place] [address]- 9903 29 Sep, 2013 [facility] [place] [facility] [address] [id number] [place] [address]- 6136 Sep, [facility] [place] [facility] [address] [id number] [place] [address]- 4621 Sep, [facility] [place] [facility] [address] [id number] [place] [address]- 8713 Sep, [facility] [place] [facility] [address] [id number] [place] [address]- 4671 Sep, [facility] [place] [facility] [address] [id number] [place] [address]- 5915 Sep, [facility] [place] [facility] [address] [id number] [place] [address]- 7701 Sep, [facility] [place] [facility] [address] [id number] [place] [address]- 4713 Sep, [facility] [place] [facility] [address] [id number] [place] [address]- 0976 Sep, [facility] [place] [facility] [address] [id number] [place] [address]- 3955 Aug, [facility] [place] [facility] [address] [id number] [place] [address]- 2790 Aug, [facility] [place] [facility] [address] [id number] [place] [address]- 6385 Aug, [facility] [place] [facility] [address] [id number] [place] [address]- 5238 Aug, [facility] [place] [facility] [address] [id number] [place] [address]- 8471 Aug, [facility] [place] [facility] [address] [id number] [place] [address]- 0481 Aug, [facility] [place] [facility] [address] [id number] [place] [address]- 0521 Aug, [facility] [place] [facility] [address] [id number] [place] [address]- 7771 Aug, [facility] [place] [facility] [address] [id number] [place] [address]- 1839 Aug, [facility] [place] [facility] [address] [id number] [place] [address]- 5421 Jul, [facility] [place] [facility] [address] [id number] [place] [address]- 7269 Jul, [facility] [place] [facility] [address] [id number] [place] [address]- 8062 Jul, [facility] [place] [facility] [address] [id number] [place] [address]- 2507 Jul, [facility] [place] [facility] [address] [id number] [place] [address]- 9246 Jul, [facility] [place] [facility] [address] [id number] [place] 6346 Jul, [facility] [place] [facility] [address] [id number] [place] [address]- 2846 Jul, [facility] [place] [facility] [address] [id number] [place] [address]- 0197 Jul, [facility] [place] [facility] [address] [id number] [place] [address]- 7316 Jul, [facility] [place] [facility] [address] [id number] [place] [address]- 6582 Jul, [facility] [place] [facility] [address] [facility] [id number] [place] [address]- 5687 Jul, [facility] [place] [facility] [address] [id number] [place] [address]- 2561 Jul, [facility] [place] [facility] [address] [id number] [place] [address]- 9931 Jul, [facility] [place] [facility] [address] [facility] [id number] [place] [address]- 7398 Jul, [facility] [place] [facility] [address] [facility] [id number] [place] [address]- 9946 Jul, [facility] [place] [facility] [address] [facility] [id number] [place] [address]- 4288 Jul, [facility] [place] [facility] [address] [id number] [place] [address]- 7018 Jun, [facility] [place] [facility] [address] [facility] [id number] [place] [address]- 1401 Jun, [facility] [place] [facility] [address] [facility] [id number] [place] [address]- 2772 Jun, [facility] [address] [id number] [place] [address]- 6743 Jun, [facility] [place] [facility] [address] [id number] [place] [address]- 8223 Jun, [facility] [place] [facility] [address] [id number] [place] [address]- 0507 Jun, [facility] [place] [facility] [address] [id number] [place] [address]- 7681 May, [facility] [place] [facility] [address] [id number] [place] [address]- 1492 May, [facility] [place] [facility] [address] [id number] [place] [address]- 2220 May, [facility] [place] [facility] [address] [id number] [place] [address]- 3945 May, [facility] [place] [facility] [address] [id number] [place] [address]- 7100 Apr, [facility] [place] [facility] [address] [id number] [place] [address]- 4969 Apr, [facility] [place] [facility] [address] [id number] [place] [address]- 5390 Apr, [facility] [place] [facility] [address] [id number] [place] [address]- 9947 Apr, [facility] [place] [facility] [address] [id number] [place] [address]- 8811 Apr, [facility] [place] [facility] [address] [id number] [place] [address]- 9823 Apr, [facility] [place] [facility] [address] [id number] [place] [address]- 2402 Apr, [facility] [place] [facility] [address] [id number] [place] [address]- 2153 Apr, [facility] [place] [facility] [address] [id number] [place] [address]- 2657 18 Apr, 2013 [facility] [place] [facility] [address] [id number] [place] [address]- 8236 18 Apr, 2013 [facility] [place] [facility] [address] [id number] [place] [address]- 8960 Apr, [facility] [place] [facility] [address] [id number] [place] [address]- 7858 Apr, [facility] [place] [facility] [address] [id number] [place] [address]- 2006 28 Mar, 2013 [facility] [place] [facility] [address] [id number] [place] [address]- 3408 28 Mar, 2013 [facility] [place] [facility] [address] [id number] [place] [address]- 5087 16 Mar, 2013 [facility] [place] [facility] [address] [id number] [place] [address]- 3915 16 Mar, 2013 [facility] [place] [facility] [address] [id number] [place] [address]- 4371 15 Mar, 2013 [facility] [place] [facility] [address] [id number] [place] [address]- 3357 15 Mar, 2013 [facility] [place] [facility] [address] [facility] [id number] [place] [address]- 9290 27 Sep, 2012 [facility] [place] [facility] [address] [id number] [place] [address]- 2542 25 Sep, 2012 [facility] [place] [facility] [address] [id number] [place] [address]- 254 25 Sep, 2012 [facility] [place] [facility] [address] [id number] [place] [address]- 2298 23 Sep, 2012 [facility] [place] [facility] [address] [id number] [place] [address]- 2545 17 Sep, 2012 [facility] [place] [facility] [address] [facility] [id number] [place] [address]- 4016 10 Sep, 2012 [facility] [place] [facility] [address] [id number] [place] [address]- 4161 Feb, [facility] [place] [facility] [address] [id number] [place] [address]- 9912 Jan, [facility] [place] [facility] [address] [id number] [place] [address]- 9286 Jan, [facility] [place] [facility] [address] [id number] [place] [address]- 4591 Jan, [facility] [place] [facility] [address] [id number] [place] [address]- 0796 Jan, [facility] [place] [facility] [address] [id number] [place] [address]- 8733 Jan[facility] [place] [facility] [address] [id number] [place] [address]- 1461 Jan, [facility] [place] [facility] [address] [id number] [place] [address]- 2740 Jan, [facility] [place] [facility] [address] [id number] [place] [address]- 3822 Dec, [facility] [place] [facility] [address] [id number] [place] [address]- 2780 Dec, [facility] [place] [facility] [address] [id number] [place] [address]- 4602 Dec, [facility] [place] [facility] [address] [id number] [place] [address]- 1178 Dec, [facility] [place] [facility] [address] [id number] [place] [address]- 1676 Dec, [facility] [place] [facility] [address] [id number] [place] [address] Dec, [facility] [place] [facility] [address] [id number] [place] [address] Nov, [facility] [place] [facility] [address] [id number] [place] [address] Nov, [facility] [address] [id number] [place] [address] Nov, [facility] [address] [id number] [place] [address] Nov, [facility] [address] [id number] [place] [address] October, [facility] [place] [facility] [address] [id number] [place] [address] October, [facility] [address] [id number] [place] [address] October, [facility] [address] [id number] [place] [address] October, [facility] [address] [id number] [place] [address] Sep, [facility] [place] [facility] [address] [id number] [place] [address] Sep, [facility] [address] [id number] [place] [address] Sep, [facility] [place] [facility] [address] [id number] [place] [address] Sep, [facility] [place] [facility] [address] [id number] [place] [address] Sep, [facility] [place] [facility] [address] [id number] [address] Sep, [facility] [place] [facility] [address] [id number] [place] [address] Sep, [facility] [place] [facility] [address] [id number] [place] [address] Sep, [facility] [place] [facility] [address] [id number] [place] [address] Aug, [facility] [place] [facility] [address] [id number] [place] [address] 13 Aug, 2012 [facility] [address] [id number] [place] [address]- [address] 05 Aug, 2012 [facility] [address] [id number] [place] [address]- 7766 18 Jul, 2012 [facility] [address] [id number] [place] [address]46 08 Jul, 2012 [facility] [address] [id number] [place] [address]- [address] 07 Jul, 2012 [facility] [address] [id number] [place] [address]- [address] 06 Jul, 2012 [facility] [address] [id number] [place] [address] 1186 05 Jul, 2012 [facility] [address] [id number] [place] [address] Jun, [facility] [address] [id number] [place] [address] 17 Jun, 2012 [facility] [address] [facility] [id number] [place] [address] Jun, [facility] [address] [facility] [id number] [place] [address] May, [facility] [address] [id number] [place] [address] 25[address] May, [facility] [address] [id number] [place] [address] 2546 May, [facility] [place] [facility] [address] [id number] [place] [address] 1616 May, [facility] [address] [id number] [place] [address] May, [facility] [address] [id number] [place] [address] May, [facility] [place] [facility] [address] [id number] [place] [address] May, [facility] [place] [facility] [address] [id number] [place] [address] Apr, [facility] [place] [facility] [address] [id number] [place] [address]- [address]21 Apr, [facility] [place] [facility] [address] [id number] [place] [address]- 1460 Apr, [facility] [place] [facility] [address] [id number] [place] [address] Apr, [facility] [place] [facility] [address] [id number] [place] [address]- [address] Apr, [facility] [place] [facility] [address] [id number] [place] [address]- [address] Apr, [facility] [place] [facility] [address] [id number] [place] [address] 47[address] Apr, [facility] [place] [facility] [address] [id number] [place] [address] Apr, [facility] [place] [facility] [address] [facility] [id number] [place] [address] Apr, [facility] [place] [facility] [address] [id number] [place] [address] Apr, [facility] [place] [facility] [address] [id number] [place] [address]- 4587 Apr, [facility] [place] [facility] [address] [id number] [place] [address] 62[address] Mar, [facility] [place] [facility] [address] [id number] [place] [address] 1447 Mar, [facility] [place] [facility] [address] [id number] [place] [address]167 Mar, [facility] [place] [facility] [address] [id number] [place] [address]- [address] 23 Mar, 2012 [facility] [place] [facility] [address] [id number] [place] [address]- 3434 23 Mar, 2012 [facility] [place] [facility] [address] [facility] [id number] [place] [address]- [address] 23 Mar, 2012 [facility] [place] [facility] [address] [facility] [id number] [place] [address]- 4074 19 Mar, 2012 [facility] [place] [facility] [address] [id number] [place] [address]- 8608 19 Mar, 2012 [facility] [place] [facility] [address] [facility] [id number] [place] [address], [place] [address] 16 Mar, 2012 [facility] [place] [facility] [address] [facility] [id number] [place] [address]- 3591 16 Mar, 2012 [facility] [place] [facility] [id number] [address] 04 Mar, 2012 [facility] [place] [facility] [address] [facility] [id number] [address] 28 Sep, 2011 [facility] [place] [facility] [address] [facility] [id number] [place] [address] 27 Sep, 2011 [facility] [place] [facility] [address] [facility] [id number] [address] 27 Sep, 2011 [facility] [place] [facility] [address] [facility] [id number] [place] [address] 56[address] 26 Sep, 2011 [facility] [place] [facility] [address] [facility] [id number] [place] [address] 24 Sep, 2011 [facility] [place] [facility] [address] [facility] [id number] [place] [address] 29[address] 19 Sep, 2011 [facility] [place] [facility] [address] [facility] [id number] [address] 18 Sep, 2011 [facility] [place] [facility] [address] [id number] [place] [address] 1182 18 Sep, 2011 [facility] [place] [facility] [address] [id number] [place] [address] Feb, [facility] [place] [facility] [address] [id number] [facility] [place] [address] Jan, [facility] [place] [facility] [address] [id number] [place] [address] 36[address] Jan, [facility] [place] [facility] [address] [id number] [place] [address] 6[address] Jan, [facility] [place] [facility] [address] [id number] [place] [address]- 9766 Jan, [facility] [place] [facility] [address] [id number] [place] [address] Dec, [facility] [place] [facility] [address] [id number] [place] [address]- 0747 Dec, [facility] [place] [facility] [address] [id number] [place] [address]- 4143 Dec, [facility] [place] [facility] [address] [id number] [place] [address]- 4761 Dec, [facility] [place] [facility] [address] [id number] [place] [address]- 9454 Dec, [facility] [place] [facility] [address] [id number] [place] [address]- 8037 Dec, [facility] [place] [facility] [address] [id number] [place] [address]- 9115 Dec, [facility] [place] [facility] [address] [id number] [place] [address] 2546 Dec, [facility] [place] [facility] [address] [id number] [place] [address]- 4266 Dec, [facility] [place] [facility] [address] [id number] [place] [address] 2546 Dec, [facility] [place] [facility] [address] [id number] [place] [address]- 7[address] Dec, [facility] [place] [facility] [address] [id number] [place] [address]- 0807 Dec, [facility] [place] [facility] [address] [id number] [place] [address]- 5404 Dec, [facility] [place] [facility] [address] [id number] [place] [address]- 9658 Dec, [facility] [place] [facility] [address] [id number] [place] [address]- 8540 Nov, [facility] [place] [facility] [address] [id number] [place] [address]- 2448 Nov, [facility] [place] [facility] [address] [id number] [place] [address]- 6441 Nov, [facility] [place] [facility] [address] [id number] [place] [address]- 7617 Nov, [facility] [place] [facility] [address] [id number] [place] [address]- 2640 Nov, [facility] [place] [facility] [address] [id number] [place] [address]- 8413 Nov, [facility] [place] [facility] [address] [id number] [place] [address]- 3007 October, [facility] [place] [facility] [address] [id number] [place] [address]- 2880 October, [facility] [place] [facility] [address] [id number] [place] [address]- [address] October, [facility] [place] [facility] [address] [id number] [place] [address] 8323 October, [facility] [place] [facility] [address] [id number] [place] [address]- 3942 Sep, [facility] [place] [facility] [address] [id number] [place] [address]- 7364 Sep, [facility] [place] [facility] [address] [facility] [id number] [place] [address]- 0788 13 Sep, 2011 [facility] [address] [id number] [place] [address]- 3026 09 Sep, 2011 [facility] [address] [facility] [id number] [place] [address] 8116 Sep, [facility] [address] [facility] [id number] [place] [address] 8246 Aug, [facility] [address] [id number] [place] [address]- 6763 Aug, [facility] [address] [facility] [id number] [place] [address]- 5937 Aug, [facility] [address] [facility] [id number] [place] [address] 9970 Aug, [facility] [address] [id number] [address] Aug, [facility] [address] [facility] [id number] [place] [address]- 5748 Aug, [facility] [address] [id number] [address] Aug, [facility] [address] [facility] [id number] [place] [address] 9[address] 16 Jul, 2011 [facility] [id number] [address] 8206 16 Jul, 2011 [facility] [address] [facility] [id number] [place] [address]- 9614 15 Jul, 2011 [facility] [address] [facility] [id number] [place] [address]- 3596 15 Jul, 2011 [facility] [address] [facility] [id number] [place] [address]- [address] Jun, [address] [id number] Jun, [facility] [place] [facility] [address] [id number] [place] [address]- 8689 Jun, [facility] [place] [facility] [address] [id number] [place] [address]- 2028 Jun, [facility] [place] [facility] [address] [id number] [place] [address]- 0296 Jun, [facility] [place] [facility] [address] [id number] [place] [address]- 4970 Jun, [facility] [place] [facility] [address] [id number] [place] [address]- 8834 Jun, [facility] [place] [facility] [address] [id number] [place] [address] Jun, [facility] [place] [facility] [address] [id number] [place] [address]- 3601 May, [facility] [place] [facility] [address] [id number] [place] [address]- 0692 May, [facility] [place] [facility] [address] [id number] [place] [address]- [address] May, [facility] [place] [facility] [address] [id number] [place] [address]- 7598 May, [facility] [place] [facility] [address] [id number] [place] [address]- 7115 May, [facility] [place] [facility] [address] [id number] [place] [address]- 1133 May, [facility] [place] [facility] [address] [id number] [place] [address]- 7579 May, [facility] [place] [facility] [address] [id number] [place] [address]- 7976 Apr, [facility] [place] [facility] [address] [id number] [place] [address]- 2546 Apr, [facility] [place] [facility] [address] [id number] [place] [address]- 3168 Apr, [facility] [place] [facility] [address] [id number] [place] [address]- 7969 27 Mar, 2011 [facility] [place] [facility] [address] [id number] [place] [address]- 9361 20 Mar, 2011 [facility] [place] [facility] [address] [id number] [place] [address] 14 Mar, 2011 [facility] [place] [facility] [address] [id number] [place] [address]- 1774 11 Mar, 2011 [facility] [place] [facility] [address] [id number] [place] [address]- 5112 10 Mar, 2011 [facility] [place] [facility] [address] [id number] [place] [address]- 4482 10 Mar, 2011 [facility] [place] [facility] [address] [id number] [place] [address]- 1682 Mar, [facility] [place] [facility] [address] [id number] [place] [address]- 4960 Jan, [facility] [place] [facility] [address] [id number] [place] [address]- 8150 May, [facility] [place] [facility] [address] [id number] [place] [address]- 3197 May, [facility] [place] [facility] [address] [id number] [place] [address]- 1464 May, [facility] [place] [facility] [address] [id number] [place] [address]- 5793 13 May, 2010 [facility] [place] [facility] [address] [id number] [place] [address]- 3456 10 May, 2010 [facility] [place] [facility] [address] [id number] [place] [address]- 4636 06 May, 2010 [facility] [place] [facility] [address] [id number] [place] [address]- 5178 29 Apr, 2010 [facility] [place] [facility] [address] [facility] [id number] [place] [address]- 2156 Apr, [facility] [address] [facility] [id number] [place] [address] 2546 Apr, [facility] [place] [facility] [address] [facility] [id number] [place] [address] 2546 Apr, [facility] [address] [facility] [id number] [place] [address] 2546 Apr, [facility] [place] [facility] [address] [id number] [place] [address] 2546 Apr, [facility] [address] [facility] [id number] [place] [address]- 8276 Apr, [facility] [address] [facility] [id number] [place] [address] 2546 Apr, [facility] [address] [facility] [id number] [place] [address]- 6056 Apr, [facility] [address] [facility] [id number] [place] [address]- 2544 Apr, [facility] [address] [facility] [id number] [place] [address]- 6432 Mar, [facility] [address] [facility] [id number] [place] [address]- 2542 Mar, [facility] [address] [facility] [id number] [place] [address] 2546 Mar, [facility] [address] [facility] [id number] [place] [address]- 2543 Mar, [facility] [place] [facility] [address] [facility] [id number] [place] [address] 2546 Mar, [facility] [address] [facility] [id number] [place] [address]- 2546 Dec, [facility] [address] [facility] [id number] [place] [address]- 254 Nov, IMMUNIZATIONS No Known Immunizations SOCIAL HISTORY [...] [facility] Hospitalization History [facility] 08/2017 Hospitalization History [facility] 01/2018
--- OUTSIDE RECORDS SUMMARY | 2018-07-05 14:48 | XMS REPORT ---
Author Author JOSHUA MONTANEZ Organization [facility] Address [address] [place] [address] Care Team Providers Care Illuminator Name Role Phone JOSHUA MONTANEZ Unavailable PROBLEMS Type Condition ICD9-CM Code ITL47-HJ Code Onset Dates Condition Status SNOMED Code Problem Anemia, unspecified type D64.9 Active 791456295 Problem Personality disorder F60.9 Active 44092887 Problem Factitious disorder imposed on self, recurrent episode F68.10 Active 91026859 Problem Ventral hernia without obstruction or gangrene K43.9 Active 935089958 Problem Allergic state, subsequent encounter T78.40XD Active 877267055 Problem Anxiety F41.9 Active 29519187 Problem Age-related osteoporosis without current pathological fracture M81.0 Active 77094525 Problem Unspecified psychosis not due to a substance or known physiological condition F29 Active 76290475 Problem Iron deficiency anemia, unspecified iron deficiency anemia type D50.9 Active 04698155 Problem History of CVA with residual deficit I69.30 Active 715123196 Problem Seizure disorder G40.909 Active 494690036 Problem Perennial allergic rhinitis, unspecified allergic rhinitis trigger J30.89 Active 638418009 Problem Chronic kidney disease, unspecified stage N18.9 Active 952474795 Problem Back pain M54.9 Active 657732969 Problem Gastroesophageal reflux disease without esophagitis K21.9 Active 464664864 Problem Insomnia, unspecified type G47.00 Active 275345218 Problem History of colon polyps Z86.010 Active 313474432 ALLERGIES No Information ENCOUNTERS Encounter Location Date Diagnosis [facility] [id number], [place] [address] Apr, [facility] [id number] [address] 9[address] Mar, [facility] [address], [place] [address] 6899 Mar, [facility] [id number] [place] [address] 45366- 5063 Mar, [facility] [id number] [place] [address] 57354- 4294 Mar, Back pain M54.9 [facility] [id number] [place] [address] 20295- 6024 Mar, Back pain M54.9 and Encounter for immunization Z23 [facility] [id number] [place] [address] 24781- 3707 Feb, [facility] [id number] [place] [address] 56536- 7753 Feb, Unspecified psychosis not due to a substance or known physiological condition F29 ; Personality disorder F60.9 and Factitious disorder imposed on self, recurrent episode F68.10 [facility] [address] [place] [address] 31908- 9903 Feb, Back pain M54.9 [facility] [id number] [place] [address] 92178- 3732 Jan, Unspecified psychosis not due to a substance or known physiological condition F29 ; Personality disorder F60.9 and Factitious disorder imposed on self, recurrent episode F68.10 [facility] [address], [place] [address] 0267 Jan, [facility] [id number] [place] [address] 12470- 9604 Jan, Back pain M54.9 and Seizure disorder G40.909 [facility] [id number] [place] [address] 16868- 4587 Jan, Back pain M54.9 [facility] [id number] [place] [address] 69396- 1606 Jan, Back pain M54.9 [facility] [id number] [place] [address] 85821- 2266 Jan, [place] [id number] [place] [address] 05266- 4967 Jan, Unspecified psychosis not due to a substance or known physiological condition F29 ; Personality disorder F60.9 and Factitious disorder imposed on self, recurrent episode F68.10 [place] [address] 71463- 5122 Dec, Back pain M54.9 ; Seizure disorder G40.909 ; Ventral hernia without obstruction or gangrene K43.9 and History of CVA with residual deficit I69.30 [facility] [id number] [place] [address] 16271- 2274 Dec, Unspecified psychosis not due to a substance or known physiological condition F29 ; Personality disorder F60.9 and Factitious disorder imposed on self, recurrent episode F68.10 [facility] [id number] [place] [address] 07875- 7399 Dec, [facility] [id number] [place] [address] 69800- 1283 Dec, Back pain M54.9 [facility] [id number] [place] [address] 82209- 3643 Dec, Factitious disorder imposed on self, recurrent episode F68.10 ; Personality disorder F60.9 ; Insomnia, unspecified type G47.00 and Anxiety F41.9 [facility] [place] [id number] [place] [address] 38200- 8514 Nov, Unspecified psychosis not due to a substance or known physiological condition F29 ; Personality disorder F60.9 and Factitious disorder imposed on self, recurrent episode F68.10 [facility] [place] [id number] [place] [address] 19030- 2154 Nov, Back pain M54.9 [facility] [id number] [place] [address] 40023- 8454 Nov, Unspecified psychosis not due to a substance or known physiological condition F29 ; Personality disorder F60.9 and Factitious disorder imposed on self, recurrent episode F68.10 [facility] [address] [place] [address] 18272- 2869 October, [facility] [id number] [place] [address] 93897- 6207 October, [facility] [id number] [place] [address] 18080- 7172 October, Unspecified psychosis not due to a substance or known physiological condition F29 ; Personality disorder F60.9 and Factitious disorder imposed on self, recurrent episode F68.10 [facility] [address] [place] [address] 34866- 3169 October, Back pain M54.9 [facility] [id number] [place] [address] 65476- 4291 October, Seizure disorder G40.909 ; Back pain M54.9 and Allergic state, subsequent encounter T78.40XD [facility] [id number] [place] [address] 38669- 5559 October, [facility] [address] [place] [address] 40817- 9576 Sep, Back pain M54.9 [facility] [id number] [place] [address] 74783- 5583 Sep, Unspecified psychosis not due to a substance or known physiological condition F29 ; Personality disorder F60.9 and Factitious disorder imposed on self, recurrent episode F68.10 [facility] [address] [place] [address] 72413- 5084 Sep, [facility] [address] [place] [address] 64140- 5775 Sep, [facility] [id number] [place] [address] 11812- 3040 Sep, [facility] [id number] [address] 9847 Sep, [facility] [address], [place] [address]- 6444 Aug, [facility] [address], [place] [address]- 0388 Aug, Back pain M54.9 [facility] [address], [place] [address]- 6618 Aug, Factitious disorder imposed on self, recurrent episode F68.10 ; Personality disorder F60.9 ; Insomnia, unspecified type G47.00 and Anxiety F41.9 [facility] [address], [place] [address] 8679 Aug, Back pain M54.9 ; Iron deficiency anemia, unspecified iron deficiency anemia type D50.9 ; Chronic kidney disease, unspecified stage N18.9 and Breast cancer screening Z12.31 [facility] [id number] [id number] Jul, Back pain M54.9 [facility] [id number] [id number] Jul, [facility] [id number] [id number] Jul, [facility] [id number] [id number] Jun, Back pain M54.9 [facility] [id number] [id number] Jun, [facility] [id number] [id number] Jun, Back pain M54.9 [facility] [id number], [place] [address]- 1739 Jun, Back pain M54.9 ; Seizure disorder G40.909 and Age-related osteoporosis without current pathological fracture M81.0 [facility] [id number] [id number] May, [facility] [id number] [place] [address] 55073- 8328 May, Back pain M54.9 [facility] [id number] [place] [address] 78856- 7545 Apr, Back pain M54.9 ; Encounter for immunization Z23 ; Gastroesophageal reflux disease without esophagitis K21.9 ; Age-related osteoporosis without current pathological fracture M81.0 and Chronic pruritus L29.9 [facility] [id number] [place] [address] 26750- 3749 Apr, History of CVA with residual deficit I69.30 [facility] [id number] [place] [address] 81353- 8464 Apr, Factitious disorder imposed on self, recurrent episode F68.10 and Personality disorder F60.9 [facility] [id number] [place] [address] [id number] Apr, Back pain M54.9 [facility] [id number] [place] [address] 98222- 3901 Mar, Factitious disorder imposed on self, recurrent episode F68.10 [facility] [id number], [place] [address]- 2415 Mar, [facility] [id number] [place] [address] [id number] Mar, [facility] [id number] [place] [address] [id number] Mar, Back pain M54.9 [facility] [address] [place] [address] 83271817- 0267 05 Mar, 2017 Back pain M54.9 ; Seizure disorder G40.909 and Age-related osteoporosis without current pathological fracture M81.0 [facility] [address] [address]- 8938 Feb, History of CVA with residual deficit I69.30 [facility] [id number] [place] [address] 00889- 3642 Feb, Factitious disorder imposed on self, recurrent episode F68.10 and Personality disorder F60.9 [facility] [id number] [place] [address] 66653- 2873 15 Feb, 2017 Back pain M54.9 [facility] [address] [place] [address] 47461- 0436 Feb, [facility] [id number] [place] [address] 78707- 5434 Jan, [facility] [address] [place] [id number] Jan, Age- related osteoporosis without current pathological fracture M81.0 and Allergic state, subsequent encounter T78.40XD [facility] [address] [place] [address] 15750- 6818 Jan, Factitious disorder imposed on self, recurrent episode F68.10 and Personality disorder F60.9 [facility] [address] [place] [address] 31208- 3840 Dec, Back pain M54.9 [facility] [address] [place] [address] 23594- 0476 Dec, Personality disorder F60.9 and Factitious disorder imposed on self, recurrent episode F68.10 [facility] [id number] [place] [address] [id number] Dec, Back pain M54.9 [facility] [id number] [place] [address] [id number] Dec, [facility] [id number] [place] [address] [id number] Dec, [facility] [address] [place] [address] 14866- 6315 Dec, [facility] [address], [place] [address]- 0669 Nov, [facility] [id number] [place] [address] 49263- 5898 Nov, Back pain M54.9 ; Anemia, unspecified type D64.9 and History of colon polyps Z86.010 [facility] [id number] [place] [address] 66966- 4641 Nov, Back pain M54.9 [facility] [id number] [place] [address] [id number] October, Back pain M54.[address] [id number] October, Back pain M54.9 and Gastroesophageal reflux disease without esophagitis K21.9 [facility] [id number] [place] [address] [id number] Sep, [facility] [id number] [place] [address] 63817- 7969 Sep, [facility] [id number] [place] [address] 45331- 4861 Sep, [facility] [id number] [place] [address] 22232- 4399 Sep, [facility] [address] [place] [address] 76391- 1815 Sep, [facility] [id number] [place] [address] 36735- 4735 Sep, Seizure disorder G40.909 [facility] [id number] [place] [address] 67045- 8767 Sep, Back pain M54.9 [facility] [id number] [place] [address] 12254- 0685 Sep, [facility] [id number] [place] [address] 45465- 2171 31 Aug, 2016 Back pain M54.9 [facility] [address], [place] [address]- 0838 29 Aug, 2016 Seizure disorder G40.909 [facility] [id number] [id number] 17 Aug, 2016 [facility] [id number] [id number] 16 Aug, 2016 Back pain M54.9 [facility] [id number] [id number] 14 Aug, 2016 Back pain M54.9 [facility] [id number] [place] [address] [id number] 06 Aug, 2016 Back pain M54.9 [facility] and [address] [id number] Jul, Weakness R53.1 [facility] [address] [place] [address] 10361- 0350 Jul, Seizure disorder G40.909 [facility] [address], [place] [address]- 9626 Jul, [facility] [id number] [place] [address] 46568- 1766 Jul, Breast cancer screening Z12.39 [facility] [address] [place] [address] 81817- 2748 Jul, [facility] [address], [place] [address]- 4327 Jul, [facility] [address] [place] [address] 28648- 2748 Jul, [facility] [address], [place] [address]- 7856 13 Jul, 2016 Seizure disorder G40.909 ; Fatigue, unspecified type R53.83 ; Perennial allergic rhinitis, unspecified allergic rhinitis trigger J30.89 and Chronic kidney disease, unspecified stage N18.9 [facility] [address], [place] [address]- 7880 Jul, [facility] [address] [place] [address] 75360- 0311 Jul, Seizure disorder G40.909 [facility] [address] [place] [address] 63866- 4339 Jun, [facility] [address] [place] [address] 09780- 3665 Jun, [address] [id number] Jun, Perennial allergic rhinitis, unspecified allergic rhinitis trigger J30.89 [facility] [id number] [place] [address] [id number] Jun, [facility] [address] [place] [address] 44320- 8700 Jun, Seizure disorder G40.909 [facility] [id number] [place] [address] [id number] Jun, [facility] [id number] [place] [address] [id number] May, [facility] [address], [place] [address]- 9517 May, [facility] [address] [place] [address] 84527- 8803 May, [facility] [address], [place] [address]- 9718 May, [facility] [id number] [place] [address] 35811- 8971 May, History of CVA with residual deficit I69.30 [facility] [address], [place] [address]- 7728 May, [facility] [id number], [place] [address]- 1649 May, [facility] [address] [place] [address] 16635- 8983 May, [facility] [address] [place] [address] 81168- 2287 May, Seizure disorder G40.909 [facility] [id number] [place] [address] 39851- 5093 May, [employer] [address] [place] [address] May, Back pain M54.9 and Seizure disorder G40.909 [facility] [id number] [place] [address] 75906- 5883 Apr, [facility] [address] [place] [address] 57376- 3796 Apr, Back pain M54.9 [facility] [address] [place] [address] 19069- 2215 Mar, [employer] [address] [place] [address] Mar, Insomnia, unspecified type G47.00 [facility] [address], [place] [address]- 2517 Mar, [facility] [address], [place] [address]- 9216 Feb, [facility] [id number] [place] [address] 98723- 6621 Feb, [facility] [address] [place] [address] 53777- 3863 Feb, [facility] [address] [place] [address] 88674- 6165 Jan, [facility] [address], [place] [address]- 2928 Jan, [employer] [address] [place] [address] Jan, Seizure disorder G40.909 and Back pain M54.9 [facility] [id number] [place] [address] 35162- 5605 Dec, [facility] [address] [place] [address] 94918- 9698 Dec, [facility] [address] [place] [address] 42599- 5217 Dec, [facility] [address] [place] [address] 45882- 2493 Nov, [facility] [address] [place] [address] 64059- 3077 Nov, [facility] [address] [place] [address] 28734- 5834 Nov, Back pain M54.9 [facility] [address] [place] [address] 75063- 3870 October, [facility] [address] [place] [address] 90796- 6929 October, Back pain M54.9 [facility] [address] [place] [address] 46314- 3447 October, Seizure disorder G40.909 and B12 deficiency E53.8 [facility] [address] [place] [address] 15738- 5442 Sep, History of CVA with residual deficit I69.30 [facility] [address] [place] [address] 44982- 6720 Sep, [facility] [address] [place] [address] 09946- 9287 Sep, [facility] [address] [place] [address] 10132- 2990 Sep, Back pain M54.9 [facility] [address] [place] [address] 33680- 0873 Sep, Seizure disorder G40.909 [facility] [address] [place] [address] 70736- 9377 Aug, Back pain M54.9 [facility] [address] [place] [address] 92395- 5336 18 Aug, 2015 Seizure disorder G40.909 [facility] [id number] [place] [address] 89180- 5413 16 Aug, 2015 Back pain M54.9 [facility] [id number] [place] [address] 98318- 9302 14 Aug, 2015 Heart failure, unspecified I50.9 [facility] [address] [place] [address] 44516- 2346 14 Aug, 2015 Medication monitoring encounter Z51.81 [facility] [id number] [place] [address] 10448- 7459 15 Jul, 2015 [facility] [id number] [place] [address] 57501- 8509 09 Jul, 2015 Seizure disorder G40.909 [facility] [address] [place] [address] 63343- 3414 05 Jul, 2015 Back pain M54.9 [facility] [id number] [place] [address] 33996- 0526 Jun, [facility] [id number] [place] [address] 07240- 254 Jun, [facility] [address] [place] [address] 69277- 4329 Jun, Mental status change R41.82 ; History of CVA with residual deficit I69.30 ; Back pain M54.9 and Seizure disorder G40.909 [facility] [address] [place] [address] 79545- 6156 Jun, [facility] [address] [id number] [place] [address]- 6767 May, [facility] [address] [id number] [place] [address]- 1516 Apr, [facility] [address] [id number] [place] [address] 2546 Apr, Medication monitoring encounter Z51.81 [facility] [address] [id number] [place] [address]- 4256 Mar, Vomiting R11.10 [facility] [address] [id number] [place] [address] Mar, [facility] [address] [id number] [place] [address] Feb, [facility] [address] [id number] [place] [address] Feb, UTI (urinary tract infection) 599.0 [facility] [address] [id number] [place] [address] Jan, [facility] [address] [id number] [place] [address] Jan, [facility] [address] [id number] [place] [address] Jan, [facility] [address] [id number] [place] [address] Dec, [facility] [address] [id number] [place] [address] Dec, [facility] [address] [id number] [place] [address] Dec, [facility] [address] [id number] [place] [address] Dec, [facility] [address] [id number] [place] [address] Nov, UNKNOWN Nov, [facility] [place] [facility] [address] [id number] [place] [address] October, [facility] [place] [facility] [address] [id number] [place] [address] Sep, [facility] [place] [facility] [address] [id number] [place] [address] 8[address] Sep, [facility] [place] [facility] [address] [id number] [place] [address] 0739 Aug, [facility] [place] [facility] [address] [id number] [place] [address] 1289 Aug, [facility] [place] [facility] [address] [id number] [place] [address] 3698 Jul, [facility] [place] [facility] [address] [id number] [place] [address] 8548 Jul, [facility] [place] [facility] [address] [id number] [place] [address]- 1460 Jul, [facility] [place] [facility] [address] [id number] [place] [address] 4668 Jul, [facility] [place] [facility] [address] [id number] [place] [address] 0024 Jul, [facility] [place] [facility] [address] [id number] [place] [address] 6100 Jun, [facility] [place] [facility] [address] [id number] [place] [address]- 1584 Jun, [facility] [place] [facility] [address] [id number] [place] [address]- 6684 Jun, [facility] [place] [facility] [address] [id number] [place] [address]- 5505 Jun, [facility] [place] [facility] [address] [id number] [place] [address]- 6330 Jun, [facility] [place] [facility] [address] [id number] [place] [address]- 0877 Jun, [facility] [address] [id number] [place] [address]- 1770 Jun, [facility] [place] [facility] [address] [id number] [place] [address]- 7125 Jun, [facility] [address] [id number] [place] [address]- 6647 Jun, [facility] [address] [id number] [place] [address]- 4148 Jun, [facility] [address] [id number] [place] [address]- 1337 Jun, [facility] [address] [id number] [place] [address]- 9425 Jun, [facility] [address] [id number] [place] [address]- 5396 Jun, [facility] [address] [id number] [place] [address]- 5476 Jun, [facility] [address] [id number] [place] [address]- 3610 Jun, [facility] [address] [id number] [place] [address]- 0431 Jun, [facility] [address] [id number] [place] [address]- 9000 Jun, [facility] [address] [id number] [place] [address]- 8786 Jun, [facility] [place] [facility] [address] [id number] [place] [address] 3225 May, [facility] [place] [facility] [address] [id number] [place] [address]- 7176 May, [facility] [place] [facility] [address] [id number] [place] [address]- 3738 May, [facility] [address] [id number] [place] [address]- 8423 May, [facility] [place] [facility] [address] [id number] [place] [address]- 0887 May, [facility] [place] [facility] [address] [id number] [place] [address] May, [facility] [place] [facility] [address] [id number] [place] [address]- 5435 May, [facility] [place] [facility] [address] [id number] [place] [address]- 3199 May, [facility] [place] [facility] [address] [id number] [place] [address]- 0543 May, [address] [place] [id number] May, [facility] [place] [facility] [address] [id number] [place] [address]- 3137 May, [facility] [place] [facility] [address] [id number] [place] [address]- 2821 May, [facility] [place] [facility] [address] [id number] [place] [address]- 6829 May, [facility] [place] [facility] [address] [id number] [place] [address]- 6437 Apr, [facility] [place] [facility] [address] [id number] [place] [address]- 9790 Apr, [facility] [place] [facility] [address] [id number] [place] [address]- 3179 Apr, [facility] [place] [facility] [address] [id number] [place] [address] Apr, [facility] [place] [facility] [address] [id number] [place] [address]- 3466 Apr, [facility] [place] [facility] [address] [id number] [place] [address]- 3508 Apr, [facility] [place] [facility] [address] [id number] [place] [address]- 0749 Mar, [facility] [place] [facility] [address] [id number] [place] [address]- 1147 Mar, [facility] [place] [facility] [address] [id number] [place] [address]- 2033 Mar, [facility] [place] [facility] [address] [id number] [place] [address]- 7460 Mar, [facility] [place] [facility] [address] [id number] [place] [address]- 5282 Mar, [facility] [place] [facility] [address] [id number] [place] [address]- 6854 Mar, [facility] [place] [facility] [address] [id number] [place] [address]- 2579 24 Feb, 2014 [facility] [place] [facility] [address] [id number] [address]- 5[address] 24 Feb, 2014 [facility] [place] [facility] [address] [id number] [place] [address]- 3819 23 Feb, 2014 [facility] [place] [facility] [address] [id number] [place] [address]- 7090 23 Feb, 2013 [facility] [place] [facility] [address] [id number] [address] 19 Feb, 2013 [facility] [place] [facility] [address] [id number], [place] [address]- 3377 19 Feb, 2013 [facility] [place] [facility] [address] [id number] [place] [address]- 1363 19 Feb, 2013 [facility] [place] [facility] [address] [id number] [address]- 6829 19 Feb, 2013 [facility] [place] [facility] [address] [id number], [place] [address]- 5148 12 Feb, 2013 [facility] [place] [facility] [address] [id number] [place] [address]- 0695 Feb, [facility] [address] [facility] [place] [id number] Feb, [facility] [place] [facility] [address] [id number] [place] [address]- 0804 Feb, [facility] [place] [facility] [address] [id number] [place] [address]- 3688 Jan, [facility] [place] [facility] [address] [id number] [place] [address]- 5549 Jan, [facility] [place] [facility] [address] [id number] [place] [address]- 4468 Dec, [facility] [place] [facility] [address] [id number] [place] [address]- 6620 Dec, [facility] [place] [facility] [address] [id number] [place] [address]- 6709 Dec, [facility] [place] [facility] [address] [id number] [place] [address]- 8744 Dec, [facility] [place] [facility] [address] [id number] [place] [address]- 8688 Dec, [facility] [place] [facility] [address] [id number] [place] [address]- 2006 Dec, [facility] [place] [facility] [address] [id number] [place] [address]- 5567 Dec, [facility] [place] [facility] [address] [id number] [place] [address]- 0002 Dec, [facility] [place] [facility] [address] [id number] [place] [address]- 4460 Dec, [facility] [place] [facility] [address] [id number] [place] [address]- 4976 Dec, [facility] [place] [facility] [address] [id number] [place] [address]- 9704 Nov, [facility] [place] [facility] [address] [id number] [place] [address]- 8467 Nov, [facility] [place] [facility] [address] [id number] [place] [address]- 8060 Nov, [facility] [place] [facility] [address] [id number] [place] [address]- 9737 Nov, [facility] [place] [facility] [address] [id number] [place] [address]- 2563 Nov, [facility] [place] [facility] [address] [id number] [place] [address]- 5495 Nov, [facility] [place] [facility] [address] [id number] [place] [address]- 4662 Nov, [facility] [place] [facility] [address] [id number] [place] [address]- 9016 Nov, [facility] [place] [facility] [address] [id number] [place] [address]- 0291 Nov, [facility] [place] [facility] [address] [id number] [place] [address]- 1182 Nov, [facility] [place] [facility] [address] [id number] [place] [address]- 1680 Nov, [facility] [place] [facility] [address] [id number] [place] [address]- 2198 Nov, [facility] [place] [facility] [address] [id number] [place] [address]- 9211 Nov, [facility] [place] [facility] [address] [id number] [place] [address]- 9644 Nov, [facility] [place] [facility] [address] [id number] [place] [address]- 6234 October, [facility] [place] [facility] [address] [id number] [place] [address]- 6183 October, [facility] [place] [facility] [address] [id number] [place] [address]- 4547 October, [facility] [place] [facility] [address] [id number] [place] [address]- 2871 October, [facility] [place] [facility] [address] [id number] [place] [address]- 2132 October, [facility] [place] [facility] [address] [id number] [place] [address]- 2908 October, [facility] [place] [facility] [address] [id number] [place] [address]- 1433 October, [facility] [place] [facility] [address] [id number] [place] [address]- 7907 October, [facility] [place] [facility] [address] [id number] [place] [address]- 5555 October, [facility] [place] [facility] [address] [id number] [place] [address]- 4085 October, [facility] [place] [facility] [address] [id number] [place] [address]- 3672 Sep, [facility] [place] [facility] [address] [id number] [place] [address]- 5953 Sep, [facility] [place] [facility] [address] [id number] [place] [address]- 4006 Sep, [facility] [place] [facility] [address] [id number] [place] [address]- 0081 Sep, [facility] [place] [facility] [address] [id number] [place] [address]- 0150 Sep, [facility] [place] [facility] [address] [id number] [place] [address]- 2649 Sep, [facility] [place] [facility] [address] [id number] [place] [address]- 3545 Sep, [facility] [place] [facility] [address] [id number] [place] [address]- 1780 Sep, [facility] [place] [facility] [address] [id number] [place] [address]- 4650 Sep, [facility] [place] [facility] [address] [id number] [place] [address]- 6292 Sep, [facility] [place] [facility] [address] [id number] [place] [address]- 9376 Aug, [facility] [place] [facility] [address] [id number] [place] [address]- 5496 Aug, [facility] [place] [facility] [address] [id number] [place] [address]- 7648 Aug, [facility] [place] [facility] [address] [id number] [place] [address]- 4089 Aug, [facility] [place] [facility] [address] [facility] [id number] [place] [address]- 9265 Aug, [facility] [place] [facility] [address] [facility] [id number] [place] [address]- 7253 Aug, [facility] [place] [facility] [address] [facility] [id number] [place] [address]- 5911 Aug, [facility] [place] [facility] [address] [id number] [place] [address]- 9170 Aug, [facility] [place] [facility] [address] [facility] [id number] [place] [address]- 8051 Aug, [facility] [place] [facility] [address] [id number] [place] [address]- 9281 Jul, [facility] [place] [facility] [address] [facility] [id number] [place] [address]- 6404 Jul, [facility] [place] [facility] [address] [id number] [place] [address]- 0797 Jul, [facility] [place] [facility] [address] [facility] [id number] [place] [address]- 7666 Jul, [facility] [place] [facility] [address] [facility] [id number] [place] 4982 Jul, [facility] [place] [facility] [address] [id number] [place] [address]- 2184 Jul, [facility] [place] [facility] [address] [id number] [place] [address]- 0286 Jul, [facility] [place] [facility] [address] [id number] [place] [address]- 9362 Jul, [facility] [place] [facility] [address] [id number] [place] [address]- 1417 Jul, [facility] [place] [facility] [address] [id number] [place] [address]- 2358 Jul, [facility] [place] [facility] [address] [id number] [place] [address]- 1376 Jul, [facility] [place] [facility] [address] [id number] [place] [address]- 0600 Jul, [facility] [place] [facility] [address] [id number] [place] [address]- 0110 Jul, [facility] [place] [facility] [address] [id number] [place] [address]- 7736 Jul, [facility] [place] [facility] [address] [id number] [place] [address]- 7706 Jul, [facility] [place] [facility] [address] [id number] [place] [address]- 7357 Jul, [facility] [place] [facility] [address] [id number] [place] [address]- 0717 Jun, [facility] [place] [facility] [address] [id number] [place] [address]- 3420 Jun, [facility] [place] [facility] [address] [id number] [place] [address]- 7451 Jun, [facility] [place] [facility] [address] [facility] [id number] [place] [address]- 1092 Jun, [facility] [place] [facility] [address] [id number] [place] [address]- 6308 Jun, [facility] [place] [facility] [address] [id number] [place] [address]- 6681 Jun, [facility] [place] [facility] [address] [id number] [place] [address]- 1626 May, [facility] [place] [facility] [address] [id number] [place] [address]- 6568 May, [facility] [place] [facility] [address] [id number] [place] [address]- 5863 May, [facility] [place] [facility] [address] [id number] [place] [address]- 6909 May, [facility] [place] [facility] [address] [id number] [place] [address]- 9609 Apr, [facility] [place] [facility] [address] [id number] [place] [address]- 5275 Apr, [facility] [place] [facility] [address] [id number] [place] [address]- 8019 Apr, [facility] [place] [facility] [address] [id number] [place] [address]- 7339 Apr, [facility] [place] [facility] [address] [id number] [place] [address]- 0262 Apr, [facility] [place] [facility] [address] [id number] [place] [address]- 5918 Apr, [facility] [place] [facility] [address] [id number] [place] [address]- 2380 Apr, [facility] [place] [facility] [address] [id number] [place] [address]- 6047 Apr, [facility] [place] [facility] [address] [id number] [place] [address]- 3638 Apr, [facility] [place] [facility] [address] [id number] [place] [address]- 1911 Apr, [facility] [place] [facility] [address] [id number] [place] [address]- 0598 Apr, [facility] [place] [facility] [address] [id number] [place] [address]- 0987 Apr, [facility] [place] [facility] [address] [id number] [place] [address]- 3479 28 Mar, 2013 [facility] [place] [facility] [address] [id number] [place] [address]- 1964 28 Mar, 2013 [facility] [place] [facility] [address] [id number] [place] [address]- 3274 16 Mar, 2013 [facility] [place] [facility] [address] [id number] [place] [address]- 2161 16 Mar, 2013 [facility] [place] [facility] [address] [id number] [place] [address]- 9292 15 Mar, 2013 [facility] [place] [facility] [address] [id number] [place] [address]- 9843 15 Mar, 2013 [facility] [place] [facility] [address] [id number] [place] [address]- 4097 27 Feb, 2013 [facility] [place] [facility] [address] [id number] [place] [address]- 0594 25 Feb, 2013 [facility] [place] [facility] [address] [id number], [place] [address]- 8660 25 Sep, 2012 [facility] [place] [facility] [address] [id number], [place] [address]- 2542 23 Sep, 2012 [facility] [place] [facility] [address] [id number] [place] [address]- 1667 17 Sep, 2012 [facility] [place] [facility] [address] [id number], [place] [address]- 3243 10 Sep, 2012 [facility] [place] [facility] [address] [id number] [place] [address]- 7700 04 Sep, 2012 [facility] [place] [facility] [address] [id number] [place] [address]- 6901 Jan, [facility] [place] [facility] [address] [id number] [place] [address]- 1447 Jan, [facility] [place] [facility] [address] [id number] [place] [address]- 9992 Jan, [facility] [place] [facility] [address] [id number] [place] [address]- 1777 Jan, [facility] [place] [facility] [address] [id number] [place] [address]- 7842 Jan, [facility] [place] [facility] [address] [id number] [place] [address]- 8363 Jan, [facility] [place] [facility] [address] [id number] [place] [address]- 6639 Jan, [facility] [place] [facility] [address] [id number] [place] [address]- 2195 Dec, [facility] [place] [facility] [address] [id number] [place] [address]- 9058 Dec, [facility] [place] [facility] [address] [id number] [place] [address]- 2639 Dec, [facility] [place] [facility] [address] [id number] [place] [address]- 4922 Dec, [facility] [place] [facility] [address] [id number] [place] [address]- 9893 Dec, [facility] [place] [facility] [address] [id number] [place] [address]- 1181 Dec, [facility] [place] [facility] [address] [id number] [place] [address]- 8545 Nov, [facility] [place] [facility] [address] [id number] [place] [address]- 3429 Nov, [facility] [place] [facility] [address] [id number] [place] [address]- 6282 Nov, [facility] [place] [facility] [address] [id number] [place] [address]- 6492 Nov, [facility] [address] [id number] [place] [address]- 0226 October, [facility] [address] [id number] [place] [address]- 8982 October, [facility] [address] [id number] [place] [address]- 8152 October, [facility] [address] [id number] [place] [address]- 9751 October, [facility] [address] [id number] [place] [address]- 3393 Sep, [facility] [address] [id number] [place] [address]- 5465 Sep, [facility] [address] [id number] [place] [address] Sep, [facility] [address] [id number] [place] [address] Sep, [facility] [address] [id number] [place] [address] Sep, [facility] [address] [id number] [place] [address] Sep, [facility] [address] [id number] [place] [address] Sep, [facility] [address] [id number] [place] [address] Sep, [facility] [address] [id number] [place] [address] Aug, [facility] [address] [id number] [place] [address] Aug, [facility] [address] [id number] [place] [address] 05 Aug, 2012 [facility] [address] [id number] [place] [address] 18 Jul, 2012 [facility] [address] [id number] [place] [address] 08 Jul, 2012 [facility] [address] [id number] [place] [address] 07 Jul, 2012 [facility] [address] [id number] [place] [address] 06 Jul, 2012 [facility] [address] [id number] [place] [address] 05 Jul, 2012 [facility] [address] [id number] [place] [address] Jun, [facility] [address] [id number] [place] [address] Jun, [facility] [address] [id number] [place] [address] Jun, [facility] [address] [id number] [place] [address] May, [facility] [address] [id number] [place] [address] May, [facility] [address] [id number] [place] [address]- [address] May, [facility] [address] [id number] [place] [address] May, [facility] [address] [id number] [place] [address]146 May, [facility] [address] [id number] [place] [address] May, [facility] [address] [facility] [id number] [place] [address] May, [facility] [place] [facility] [address] [id number] [place] [address] Apr, [facility] [place] [facility] [address] [id number] [place] [address] Apr, [facility] [place] [facility] [address] [id number] [place] [address]- [address] Apr, [facility] [place] [facility] [address] [id number] [place] [address] Apr, [facility] [place] [facility] [address] [id number] [place] [address] Apr, [facility] [place] [facility] [address] [id number] [place] [address] Apr, [facility] [place] [facility] [address] [id number] [place] [address] 488[address] Apr, [facility] [place] [facility] [address] [id number] [place] [address] 132[address] Apr, [facility] [place] [facility] [address] [id number] [place] [address] Apr, [facility] [place] [facility] [address] [id number] [place] [address]- [address]269 Apr, [facility] [place] [facility] [address] [id number] [place] [address] Apr, [facility] [place] [facility] [address] [id number] [place] [address] Mar, [facility] [place] [facility] [address] [id number] [place] [address] 79[address] Mar, [facility] [place] [facility] [address] [id number] [place] [address]- [address] Mar, [facility] [place] [facility] [address] [id number] [place] [address]- [address]995 Mar, [facility] [place] [facility] [address] [id number] [place] [address]- [address]26 Mar, 2012 [facility] [place] [facility] [address] [id number] [place] [address]- [address] 23 Mar, 2012 [facility] [place] [facility] [address] [id number] [place] [address]- 9706 19 Mar, 2012 [facility] [place] [facility] [address] [facility] [id number] [place] [address]- 4276 19 Mar, 2012 [facility] [place] [facility] [address] [id number] [place] [address]- 1539 16 Mar, 2012 [facility] [place] [facility] [address] [id number] [place] [address]- 6676 16 Mar, 2012 [facility] [place] [facility] [address] [id number] [place] [address]- 2314 04 Mar, 2012 [facility] [place] [facility] [address] [id number] [place] [address]- 4090 28 Sep, 2011 [facility] [place] [facility] [address] [id number], [place] [address] 27 Sep, 2011 [facility] [place] [facility] [address] [id number], [place] [address] 27 Sep, 2011 [facility] [place] [facility] [address] [id number], [place] [address]- [address] 26 Sep, 2011 [facility] [place] [facility] [address] [id number], [place] [address]- [address]31 24 Sep, 2011 [facility] [place] [facility] [address] [id number], [place] [address]- [address]40 19 Sep, 2011 [facility] [place] [facility] [address] [id number], [place] [address]46 18 Sep, 2011 [facility] [place] [facility] [address] [facility] [id number], [place] [address]394 18 Sep, 2011 [facility] [place] [facility] [address] [id number], [place] [address]- [address]45 18 Sep, 2011 [facility] [place] [facility] [address] [id number] [place] [address] Jan, [facility] [place] [facility] [address] [id number] [place] [address]- 7726 Jan, [facility] [place] [facility] [address] [id number] [place] [address]- [address]306 Jan, [facility] [place] [facility] [address] [id number] [place] [address]- 6[address] Jan, [facility] [place] [facility] [address] [id number] [place] [address]- 6135 Dec, [facility] [place] [facility] [address] [id number] [place] [address]- 9530 Dec, [facility] [place] [facility] [address] [id number] [place] [address]- 5520 Dec, [facility] [place] [facility] [address] [id number] [place] [address]- 8196 Dec, [facility] [place] [facility] [address] [id number] [place] [address]- 0173 Dec, [facility] [place] [facility] [address] [id number] [place] [address]- 3560 Dec, [facility] [place] [facility] [address] [id number] [place] [address]- 6764 Dec, [facility] [place] [facility] [address] [id number] [place] [address]- 8536 Dec, [facility] [place] [facility] [address] [id number] [place] [address]- 6430 Dec, [facility] [place] [facility] [address] [id number] [place] [address]- 1805 Dec, [facility] [place] [facility] [address] [id number] [place] [address]- 2546 Dec, [facility] [place] [facility] [address] [id number] [place] [address]- 8918 Dec, [facility] [place] [facility] [address] [id number] [place] [address]- 4308 Dec, [facility] [place] [facility] [address] [id number] [place] [address]- 1043 Dec, [facility] [place] [facility] [address] [id number] [place] [address]- 0813 Nov, [facility] [place] [facility] [address] [id number] [place] [address]- 3964 Nov, [facility] [address] [id number] [place] [address] Nov, [facility] [place] [facility] [address] [id number] [place] [address] Nov, [facility] [address] [id number] [place] [address] Nov, [facility] [address] [id number] [place] [address] Nov, [facility] [place] [facility] [address] [id number] [place] [address] October, [facility] [place] [facility] [address] [id number] [place] [address] October, [facility] [place] [facility] [address] [id number] [place] [address] October, [facility] [place] [facility] [address] [id number] [place] [address] October, [facility] [place] [facility] [address] [id number] [place] [address] Sep, [facility] [place] [facility] [address] [id number] [place] [address] 17 Sep, 2011 [facility] [place] [facility] [address] [id number] [place] [address] 13 Sep, 2011 [facility] [place] [facility] [address] [id number] [address] Sep, [facility] [address] [id number], [place] [address] Sep, [facility] [address] [id number] [address] Aug, [facility] [address] [facility] [id number], [place] [address] Aug, [facility] [address] [id number], [place] [address] Aug, [facility] [address] [id number] [place] [address] Aug, [facility] [address] [facility] [id number], [place] [address] Aug, [facility] [address] [facility] [id number], [place] [address] Aug, [facility] [address] [id number], [place] [address] Aug, [facility] [address] [facility] [id number], [place] [address] 16 Jul, 2011 [facility] [address] [facility] [id number], [place] [address] 16 Jul, 2011 [facility] [address] [facility] [id number], [place] [address] 15 Jul, 2011 [facility] [address] [facility] [id number], [place] [address] Jul, [facility] [address] [facility] [id number][place] [address] Jun, [address] [id number] Jun, [facility] [address] [id number] [address] Jun, [facility] [address] [id number] [place] [address] 10 Jun, 2011 [facility] [address] [id number] [place] [address] Jun, [facility] [place] [facility] [address] [id number] [place] [address] Jun, [facility] [address] [id number] [place] [address] Jun, [facility] [place] [facility] [address] [id number] [place] [address] Jun, [facility] [address] [id number] [place] [address] May, [facility] [place] [facility] [address] [id number] [place] [address] 14[address] May, [facility] [address] [id number] [place] [address] May, [facility] [address] [id number] [place] [address] May, [facility] [place] [facility] [address] [id number] [place] [address]10 May, [facility] [address] [id number] [place] [address] May, [facility] [place] [facility] [address] [id number] [place] [address] 7916 May, [facility] [place] [facility] [address] [id number] [place] [address] Apr, [facility] [place] [facility] [address] [id number] [place] [address]- [address] Apr, [facility] [place] [facility] [address] [id number] [place] [address] Apr, [facility] [place] [facility] [address] [id number] [place] [address]- [address] Mar, [facility] [place] [facility] [address] [id number] [place] [address]- 9968 20 Mar, 2011 [facility] [place] [facility] [address] [id number] [place] [address]- 164[address] 14 Mar, 2011 [facility] [place] [facility] [address] [id number] [place] [address]- 7426 11 Mar, 2011 [facility] [place] [facility] [address] [id number] [place] [address]- 1176 10 Mar, 2011 [facility] [place] [facility] [address] [id number] [place] [address]- [address]396 10 Mar, 2011 [facility] [place] [facility] [address] [id number] [place] [address]- [address]478 10 Mar, 2011 [facility] [place] [facility] [address] [id number] [place] [address]- [address] Jan, [facility] [place] [facility] [address] [id number] [place] [address]- [address] 27 May, 2010 [facility] [place] [facility] [address] [id number] [place] [address]- [address] May, [facility] [place] [facility] [address] [id number] [place] [address]- 288[address] May, [facility] [place] [facility] [address] [id number] [place] [address] May, [facility] [place] [facility] [address] [id number] [place] [address]- 9567 10 May, 2010 [facility] [place] [facility] [address] [id number] [place] [address]- [address]48 06 May, 2010 [facility] [place] [facility] [address] [id number] [place] [address]- [address] 29 Apr, 2010 [facility] [place] [facility] [address] [id number] [place] [address] Apr, [facility] [place] [facility] [address] [id number], [place] [address] Apr, [facility] [address] [facility] [id number] [address] Apr, [facility] [address] [facility] [id number], [place] [address] Apr, [facility] [id number], [place] [address] Apr, [facility] [address] [facility] [id number], [place] [address]- [address] Apr, [facility] [address] [facility] [id number], [place] [address]- 24[address] Apr, [facility] [address] [id number], [place] [address] Apr, [facility] [id number], [place] [address] Apr, [facility] [id number], [place] [address] Mar, [facility] [id number], [place] [address]- [address] Mar, [facility] [id number], [place] [address] Mar, [facility] [id number], [place] [address]- [address] Mar, [facility] [id number], [place] [address]- [address] Mar, [facility] [id number], [place] [address]- [address] Dec, [facility] [id number], [place] [address] Nov, IMMUNIZATIONS No Known Immunizations SOCIAL HISTORY Never Assessed REASON FOR VISIT Medication question PLAN OF CARE VITAL SIGNS MEDICATIONS Medication [...] and skin graft, cholecysectomy Hospitalization History [facility] 12/2016 [facility]2017 Hospitalization History [facility] 01/2018
--- OUTSIDE RECORDS SUMMARY | 2018-07-05 14:49 | XMS REPORT ---
Author Author NAHOMY BETH Organization [facility] Address [address] [place] [address] Care Team Providers Care Engine Test Cell Technician Name Role Phone NAHOMY BETH Unavailable PROBLEMS Type Condition ICD9-CM Code AHX11-UQ Code Onset Dates Condition Status SNOMED Code Problem Anemia, unspecified type D64.9 Active 654387133 Problem Personality disorder F60.9 Active 57015186 Problem Factitious disorder imposed on self, recurrent episode F68.10 Active 65456162 Problem Ventral hernia without obstruction or gangrene K43.9 Active 433748929 Problem Allergic state, subsequent encounter T78.40XD Active 414540608 Problem Anxiety F41.9 Active 50574828 Problem Age-related osteoporosis without current pathological fracture M81.0 Active 91227320 Problem Unspecified psychosis not due to a substance or known physiological condition F29 Active 36822071 Problem Iron deficiency anemia, unspecified iron deficiency anemia type D50.9 Active 86814924 Problem History of CVA with residual deficit I69.30 Active 157835226 Problem Seizure disorder G40.909 Active 292832511 Problem Perennial allergic rhinitis, unspecified allergic rhinitis trigger J30.89 Active 626080856 Problem Chronic kidney disease, unspecified stage N18.9 Active 776211806 Problem Back pain M54.9 Active 924436463 Problem Gastroesophageal reflux disease without esophagitis K21.9 Active 707026001 Problem Insomnia, unspecified type G47.00 Active 107231286 Problem History of colon polyps Z86.010 Active 485637771 ALLERGIES No Information ENCOUNTERS Encounter Location Date Diagnosis [facility] [id number] [address] 6[address] Apr, [facility] [address] [facility] [id number] [address] 5116 Mar, [facility] [address] [address] 5896 Mar, [facility] [id number] [place] [address] 29502- 3966 Mar, Back pain M54.9 [facility] [id number] [place] [address] 93540- 6739 Mar, Back pain M54.9 and Encounter for immunization Z23 [facility] [id number] [place] [address] 88388- 7931 Feb, [facility] [id number] [place] [address] 21065- 5059 Feb, Unspecified psychosis not due to a substance or known physiological condition F29 ; Personality disorder F60.9 and Factitious disorder imposed on self, recurrent episode F68.10 [facility] [id number] [place] [address] 50316- 2641 Feb, Back pain M54.9 [facility] [id number] [place] [address] 71215- 7799 Jan, Unspecified psychosis not due to a substance or known physiological condition F29 ; Personality disorder F60.9 and Factitious disorder imposed on self, recurrent episode F68.10 [facility] [id number] [place] [address] 05144- 6657 Jan, [facility] [address] [place] [address] 98895- 1070 Jan, Back pain M54.9 and Seizure disorder G40.909 [facility] [address] [address] 8238 Jan, Back pain M54.9 [facility] [id number] [place] [address] 02222- 1906 Jan, Back pain M54.9 [facility] [id number] [place] [address] 01580- 4674 Jan, [facility] [id number] [place] [address] 22699- 1130 Jan, Unspecified psychosis not due to a substance or known physiological condition F29 ; Personality disorder F60.9 and Factitious disorder imposed on self, recurrent episode F68.10 [facility] [id number] [place] [address] 89389- 2690 Dec, Back pain M54.9 ; Seizure disorder G40.909 ; Ventral hernia without obstruction or gangrene K43.9 and History of CVA with residual deficit I69.30 [facility] [id number] [place] [address] 74600- 7097 Dec, Unspecified psychosis not due to a substance or known physiological condition F29 ; Personality disorder F60.9 and Factitious disorder imposed on self, recurrent episode F68.10 [facility] [id number] [place] [address] 35223- 8145 Dec, [facility] [id number] [place] [address] 95103- 5875 Dec, Back pain M54.9 [facility] [id number] [place] [address] 73928- 1966 Dec, Factitious disorder imposed on self, recurrent episode F68.10 ; Personality disorder F60.9 ; Insomnia, unspecified type G47.00 and Anxiety F41.9 [facility] [id number] [place] [address] 20069- 9738 Nov, Unspecified psychosis not due to a substance or known physiological condition F29 ; Personality disorder F60.9 and Factitious disorder imposed on self, recurrent episode F68.10 [facility] [id number] [place] [address] 72926- 8783 Nov, Back pain M54.9 [facility] [id number] [place] [address] 07436- 3095 Nov, Unspecified psychosis not due to a substance or known physiological condition F29 ; Personality disorder F60.9 and Factitious disorder imposed on self, recurrent episode F68.10 [facility] [id number] [address] 0098 October, [facility] [id number] [place] [address] 91169- 2459 October, [facility] [id number] [place] [address] 22302- 1684 October, Unspecified psychosis not due to a substance or known physiological condition F29 ; Personality disorder F60.9 and Factitious disorder imposed on self, recurrent episode F68.10 [facility] [id number] [place] [address] 24077- 7109 October, Back pain M54.9 [facility] [id number] [place] [address] 15961- 0132 October, Seizure disorder G40.909 ; Back pain M54.9 and Allergic state, subsequent encounter T78.40XD [facility] [id number] [address] 1926 October, [facility] [id number] [place] [address] 24188- 4297 Sep, Back pain M54.9 [facility] [id number] [place] [address] 54310- 0599 Sep, Unspecified psychosis not due to a substance or known physiological condition F29 ; Personality disorder F60.9 and Factitious disorder imposed on self, recurrent episode F68.10 [facility] [id number] [address]- 4726 Sep, [facility] [id number] [place] [address] 37961- 2268 Sep, [facility] [id number] [address]- 1102 Sep, [facility] [id number] [place] [address] 55750- 5357 Sep, [facility] [id number] [address] Aug, [facility] [address] [address] Aug, Back pain M54.9 [facility] [address] [address]367 Aug, Factitious disorder imposed on self, recurrent episode F68.10 ; Personality disorder F60.9 ; Insomnia, unspecified type G47.00 and Anxiety F41.9 [facility] [address] [address]- 7176 Aug, Back pain M54.9 ; Iron deficiency anemia, unspecified iron deficiency anemia type D50.9 ; Chronic kidney disease, unspecified stage N18.9 and Breast cancer screening Z12.31 [facility] [id number] [place] [id number] Jul, Back pain M54.9 [facility] [id number] [id number] Jul, [facility] [id number] [place] [address] [id number] Jul, [facility] [id number] [place] [address] Jun, Back pain M54.9 [facility] [id number] [place] [id number] Jun, [facility] [id number] [place] [address] Jun, Back pain M54.9 [facility] [id number] [address]- 2546 Jun, Back pain M54.9 ; Seizure disorder G40.909 and Age-related osteoporosis without current pathological fracture M81.0 [facility] [id number] [place] [address] [id number] May, [facility] [address] [address]- 3863 06 May, 2017 Back pain M54.9 [facility] [address] [place] [address] 549658- 4552 Apr, Back pain M54.9 ; Encounter for immunization Z23 ; Gastroesophageal reflux disease without esophagitis K21.9 ; Age-related osteoporosis without current pathological fracture M81.0 and Chronic pruritus L29.9 [facility] [address] [address]- 4142 Apr, History of CVA with residual deficit I69.30 [facility] [id number] [place] [address] 26217- 2134 Apr, Factitious disorder imposed on self, recurrent episode F68.10 and Personality disorder F60.9 [facility] [id number] [place] [address] [id number] Apr, Back pain M54.9 [facility] [address] [place] [address] 84936- 5717 Mar, Factitious disorder imposed on self, recurrent episode F68.10 [facility] [address] [address]- 9308 Mar, [facility] [id number] [place] [id number] Mar, [facility] [id number] [place] [address] [id number] Mar, Back pain M54.9 [facility] [address] [place] [address] 19970- 9634 05 Mar, 2017 Back pain M54.9 ; Seizure disorder G40.909 and Age-related osteoporosis without current pathological fracture M81.0 [facility] [address] [address]- 7437 Feb, History of CVA with residual deficit I69.30 [facility] [address] [address]- 3168 19 Feb, 2017 Factitious disorder imposed on self, recurrent episode F68.10 and Personality disorder F60.9 [facility] [id number] [address]- 7390 15 Feb, 2017 Back pain M54.9 [facility] [address] [place] [address] 05048- 9807 06 Feb, 2017 [facility] [address] [place] [address] 07024- 0939 Jan, [facility] and [address] [id number] Jan, Age- related osteoporosis without current pathological fracture M81.0 and Allergic state, subsequent encounter T78.40XD [facility] [address] [place] [address] 06512- 8917 Jan, Factitious disorder imposed on self, recurrent episode F68.10 and Personality disorder F60.9 [facility] [address] [address]- 7316 Dec, Back pain M54.9 [facility] [address] [place] [address] 85021- 2828 Dec, Personality disorder F60.9 and Factitious disorder imposed on self, recurrent episode F68.10 [facility] [id number] [id number] Dec, Back pain M54.9 [facility] [id number] [id number] Dec, [facility] [id number] [place] [address] [id number] Dec, [facility] [address] [address]- 2474 03 Dec, 2016 [facility] [address] [place] [address] 41222- 3405 Nov, [facility] [address] [address]- 0597 Nov, Back pain M54.9 ; Anemia, unspecified type D64.9 and History of colon polyps Z86.010 [facility] [address] [address]- 2511 Nov, Back pain M54.9 [facility] [id number] [place] [address] [id number] October, Back pain M54.9 [facility] [address] [place] [id number] October, Back pain M54.9 and Gastroesophageal reflux disease without esophagitis K21.9 [facility] [id number] [place] [address] [id number] Sep, [facility] [id number] [place] [address] 19199- 0288 Sep, [facility] [id number] [place] [address] 06697- 2195 Sep, [facility] [id number] [place] [address] 90759- 5030 Sep, [facility] [address] [place] [address] 09090- 7012 Sep, [facility] [address] [place] [address] 54101- 2654 Sep, Seizure disorder G40.909 [facility] [address] [place] [address] 88835- 4519 Sep, Back pain M54.9 [facility] [id number] [place] [address] 47938- 5448 Sep, [facility] [id number] [place] [address] 51595- 3993 Aug, Back pain M54.9 [facility] [id number] [address] 6728 29 Aug, 2016 Seizure disorder G40.909 [facility] [id number] [place] [address] [id number] 17 Aug, 2016 [facility] [id number] [place] [address] [id number] 16 Aug, 2016 Back pain M54.9 [facility] [id number] [place] [address] [id number] 14 Aug, 2016 Back pain M54.9 [facility] [id number] [place] [address] [id number] 06 Aug, [address] [facility] and [address] [id number] Jul, Weakness R53.1 [facility] [address] [place] [address] 76780- 3568 Jul, Seizure disorder G40.909 [facility] [address] [place] [address] 24453- 9046 Jul, [facility] [address] [place] [address] 50999- 6546 Jul, Breast cancer screening Z12.39 [facility] [address] [place] [address] 08181- 4411 Jul, [facility] [address] [place] [address] 71148- 7688 Jul, [facility] [address] [place] [address] 85158- 0672 17 Jul, 2016 [facility] [id number] [place] [address] 71626- 4317 13 Jul, 2016 Seizure disorder G40.909 ; Fatigue, unspecified type R53.83 ; Perennial allergic rhinitis, unspecified allergic rhinitis trigger J30.89 and Chronic kidney disease, unspecified stage N18.9 [facility] [id number] [place] [address] 34952- 5044 Jul, [facility] [address] [address]- 7940 Jul, Seizure disorder G40.909 [facility] [address] [address]- 8409 Jun, [facility] [address] [place] [address] 34621- 6390 Jun, [address] [id number] Jun, Perennial allergic rhinitis, unspecified allergic rhinitis trigger J30.89 [facility] [id number] [place] [address] [id number] Jun, [facility] [address] [place] [address] 34482- 4765 Jun, Seizure disorder G40.909 [facility] [id number] [place] [address] [id number] Jun, [facility] [id number] [place] [address] [id number] May, [facility] [address] [place] [address] 10549- 6664 May, [facility] [address] [address]- 0482 May, [facility] [address] [place] [address] 69945- 2070 May, [facility] [address] [place] [address] 33458- 7719 May, History of CVA with residual deficit I69.30 [facility] [address] [place] [address] 29761- 6467 15 May, 2016 [facility] [address] [place] [address] 24127- 5725 May, [facility] [id number] [address]- 9776 May, [facility] [address] [place] [address] 43397- 5461 May, Seizure disorder G40.909 [facility] [address] [place] [address] 74450- 1492 May, [facility] [address] [place] [address] May, Back pain M54.9 and Seizure disorder G40.909 [facility] [address] [place] [address] 93990- 1915 Apr, [facility] [address] [place] [address] 03099- 6962 Apr, Back pain M54.9 [facility] [address] [place] [address] 21721- 5475 Mar, [facility] [address] [place] [address] Mar, Insomnia, unspecified type G47.00 [facility] [id number] [place] [address] 23989- 3677 Mar, [facility] [address] [place] [address] 42183- 1545 Feb, [facility] [address] [place] [address] 93127- 0323 Feb, [facility] [address] [place] [address] 81409- 7624 Feb, [facility] [address] [place] [address] 34401- 5866 Jan, [facility] [address] [place] [address] 60522- 9504 Jan, [facility] [address] [place] [address] Jan, Seizure disorder G40.909 and Back pain M54.9 [facility] [address] [address]- 4271 Dec, [facility] [id number] [place] [address] 21610- 2558 Dec, [facility] [address] [address]- 4162 Dec, [facility] [id number] [place] [address] 22308- 4229 Nov, [facility] [address] [place] [address] 24399- 9208 Nov, [facility] [id number] [place] [address] 42428- 9172 Nov, Back pain M54.9 [facility] [id number] [place] [address] 68630- 6613 October, [facility] [id number] [place] [address] 74452- 9962 October, Back pain M54.9 [facility] [id number] [place] [address] 71476- 1352 October, Seizure disorder G40.909 and B12 deficiency E53.8 [facility] [address] [place] [address] 81666- 1293 Sep, History of CVA with residual deficit I69.30 [facility] [address] [address]- 4369 Sep, [facility] [address] [place] [address] 46991- 0280 Sep, [facility] [id number] [place] [address] 48461- 0633 Sep, Back pain M54.9 [facility] [address] [address]- 2696 Sep, Seizure disorder G40.909 [facility] [address] [place] [address] 00947- 5495 25 Aug, 2015 Back pain M54.9 [facility] [id number] [place] [address] 62773 2546 18 Aug, 2015 Seizure disorder G40.909 [facility] [id number] [place] [address] 83569 2546 16 Aug, 2015 Back pain M54.9 [facility] [id number] [place] [address] 62831 2546 14 Aug, 2015 Heart failure, unspecified I50.9 [facility] [id number] [place] [address] 22086- 0502 14 Aug, 2015 Medication monitoring encounter Z51.81 [facility] [id number] [place] [address] 69290- 4787 15 Jul, 2015 [facility] [id number] [place] [address] 15826- 8241 09 Jul, 2015 Seizure disorder G40.909 [facility] [id number] [place] [address] 76593- 2601 05 Jul, 2015 Back pain M54.9 [facility] [address] [place] [address] 44083- 7992 Jun, [facility] [id number] [place] [address] 63953- 0628 Jun, [facility] [id number] [place] [address] 02301- 2547 Jun, Mental status change R41.82 ; History of CVA with residual deficit I69.30 ; Back pain M54.9 and Seizure disorder G40.909 [facility] [address] [place] [address] 88445- 2546 Jun, [facility] [address] [place] [address] 44767- 6849 May, [facility] [address] [id number] [place] [address] Apr, [facility] [id number] [place] [address] Apr, Medication monitoring encounter Z51.81 [facility] [id number] [place] [address] Mar, Vomiting R11.10 [facility] [address] [id number] [place] [address] Mar, [facility] [address] [id number] [place] [address] Feb, [facility] [address] [id number] [address] Feb, UTI (urinary tract infection) 599.0 [facility] [id number] [address] Jan, [facility] [address] [id number] [address] Jan, [facility] [id number] [place] [address] Jan, [facility] [address] [id number] [address] Dec, [facility] [address] [id number] [address] Dec, [facility] [address] [facility] [id number] [place] [address] Dec, [facility] [address] [id number] [address] Dec, [facility] [address] [facility] [id number] [place] [address] Nov, UNKNOWN Nov, [facility] [address] [id number] [address] October, [facility] [place] [facility] [address] [id number] [place] [address] Sep, [facility] [place] [facility] [address] [id number] [place] [address] Sep, [facility] [place] [facility] [address] [id number] [place] [address] Aug, [facility] [place] [facility] [address] [id number] [place] [address] Aug, [facility] [place] [facility] [address] [id number] [place] [address] Jul, [facility] [place] [facility] [address] [id number] [place] [address] Jul, [facility] [place] [facility] [address] [id number] [place] [address] Jul, [facility] [place] [facility] [address] [id number] [place] [address] 0718 Jul, [facility] [place] [facility] [address] [id number] [place] [address] 2071 Jul, [facility] [place] [facility] [address] [id number] [place] [address] 4854 Jun, [facility] [place] [facility] [address] [id number] [place] [address] 1791 Jun, [facility] [place] [facility] [address] [id number] [place] [address] 0806 Jun, [facility] [place] [facility] [address] [id number] [place] [address] 3503 Jun, [facility] [place] [facility] [address] [id number] [place] [address]- 0285 Jun, [facility] [place] [facility] [address] [id number] [place] [address] 1197 Jun, [facility] [place] [facility] [address] [id number] [place] [address]120 14 Jun, 2014 [facility] [address] [id number] [place] [address] 1931 Jun, [facility] [place] [facility] [address] [id number] [place] [address] 2192 Jun, [facility] [address] [id number] [place] [address] 2623 Jun, [facility] [address] [id number] [place] [address]- 5776 Jun, [facility] [address] [id number] [place] [address]- 0892 Jun, [facility] [address] [id number] [place] [address]- 1534 Jun, [facility] [address] [id number] [place] [address]- 0320 Jun, [facility] [address] [id number] [place] [address] 8158 Jun, [facility] [address] [id number] [place] [address]- 2704 Jun, [facility] [address] [id number] [place] [address]- 4115 Jun, [facility] [place] [facility] [address] [id number] [place] [address]- 7876 Jun, [facility] [address] [id number] [place] [address]- 4438 May, [facility] [place] [facility] [address] [id number] [place] [address]- 0531 May, [facility] [place] [facility] [address] [id number] [place] [address]- 2056 May, [facility] [place] [facility] [address] [id number] [place] [address]- 2430 May, [facility] [place] [facility] [address] [id number] [place] [address]- 1551 May, [facility] [place] [facility] [address] [id number] [place] [address]- 4604 May, [facility] [place] [facility] [address] [id number] [place] [address]- 2507 May, [facility] [place] [facility] [address] [id number] [place] [address]- 6426 May, [facility] [place] [facility] [address] [id number] [place] [address]- 7411 May, [facility] [address] [facility] [place] [id number] May, [facility] [place] [facility] [address] [id number] [place] [address]- 7685 May, [facility] [place] [facility] [address] [id number] [place] [address]- 8714 May, [facility] [place] [facility] [address] [id number] [place] [address]- 5165 May, [facility] [place] [facility] [address] [id number] [place] [address]- 7539 Apr, [facility] [place] [facility] [address] [id number] [place] [address]- 2343 Apr, [facility] [place] [facility] [address] [id number] [place] [address]- 2079 Apr, [facility] [place] [facility] [address] [id number] [place] [address]- 7084 Apr, [facility] [place] [facility] [address] [id number] [place] [address]- 2204 Apr, [facility] [place] [facility] [address] [id number] [place] [address]- 2160 Apr, [facility] [place] [facility] [address] [id number] [place] [address] 3790 Mar, [facility] [place] [facility] [address] [id number] [place] [address]- 4139 Mar, [facility] [place] [facility] [address] [id number] [place] [address]- 8721 Mar, [facility] [place] [facility] [address] [id number] [place] [address]- 4990 Mar, [facility] [place] [facility] [address] [id number] [place] [address]- 3124 Mar, [facility] [place] [facility] [address] [id number] [place] [address]- 7685 Mar, [facility] [place] [facility] [address] [id number] [place] [address]- 3815 Feb, [facility] [place] [facility] [address] [id number] [place] [address]- 6561 24 Feb, 2014 [facility] [place] [facility] [address] [id number] [place] [address]- 3683 Feb, [facility] [place] [facility] [address] [id number] [place] [address]- 6055 Feb, [facility] [place] [facility] [address] [id number] [place] [address]- 6150 Feb, [facility] [place] [facility] [address] [id number] [place] [address]- 5596 19 Feb, 2014 [facility] [place] [facility] [address] [id number] [place] [address]- 2541 19 Feb, 2013 [facility] [place] [facility] [address] [id number] [place] [address] 2540 19 Feb, 2014 [facility] [place] [facility] [address] [id number] [place] [address]- 4869 12 Feb, 2014 [facility] [place] [facility] [address] [id number] [place] [address]- 2542 12 Feb, 2014 [facility] [address] [place] [id number] Feb, [facility] [place] [facility] [address] [id number] [place] [address]- 4691 Feb, [facility] [place] [facility] [address] [id number] [place] [address]- 9370 Jan, [facility] [place] [facility] [address] [id number] [place] [address]- 7746 Jan, [facility] [place] [facility] [address] [id number] [place] [address]- 1702 Dec, [facility] [place] [facility] [address] [id number] [place] [address]- 3061 Dec, [facility] [place] [facility] [address] [id number] [place] [address]- 6262 Dec, [facility] [place] [facility] [address] [id number] [place] [address]- 3488 Dec, [facility] [place] [facility] [address] [id number] [place] [address]- 3737 Dec, [facility] [place] [facility] [address] [id number] [place] [address]- 8201 Dec, [facility] [place] [facility] [address] [id number] [place] [address]- 1790 Dec, [facility] [place] [facility] [address] [id number] [place] [address]- 6913 Dec, [facility] [place] [facility] [address] [id number] [place] [address]- 1306 Dec, [facility] [place] [facility] [address] [id number] [place] [address]- 1686 Dec, [facility] [place] [facility] [address] [id number] [place] [address]- 8588 Nov, [facility] [place] [facility] [address] [id number] [place] [address]- 6823 Nov, [facility] [place] [facility] [address] [id number] [place] [address]- 4812 Nov, [facility] [place] [facility] [address] [id number] [place] [address]- 1413 Nov, [facility] [place] [facility] [address] [id number] [place] [address]- 3068 Nov, [facility] [place] [facility] [address] [id number] [place] [address]- 8997 Nov, [facility] [place] [facility] [address] [id number] [place] [address]- 7588 Nov, [facility] [place] [facility] [address] [id number] [place] [address]- 0588 Nov, [facility] [place] [facility] [address] [id number] [place] [address]- 5504 Nov, [facility] [place] [facility] [address] [id number] [place] [address]- 5687 Nov, [facility] [place] [facility] [address] [id number] [place] [address]- 8451 Nov, [facility] [place] [facility] [address] [id number] [place] [address]- 7084 Nov, [facility] [place] [facility] [address] [id number] [place] [address]- 6982 Nov, [facility] [place] [facility] [address] [id number] [place] [address]- 3095 Nov, [facility] [place] [facility] [address] [id number] [place] [address]- 7989 October, [facility] [place] [facility] [address] [id number] [place] [address]- 8235 October, [facility] [place] [facility] [address] [id number] [place] [address]- 6797 October, [facility] [place] [facility] [address] [id number] [place] [address]- 0171 October, [facility] [place] [facility] [address] [id number] [place] [address]- 1838 October, [facility] [place] [facility] [address] [id number] [place] [address]- 1339 October, [facility] [place] [facility] [address] [id number] [place] October, [facility] [place] [facility] [address] [id number] [place] [address]- 8284 October, [facility] [place] [facility] [address] [id number] [place] [address]- 3699 October, [facility] [place] [facility] [address] [id number] [place] [address]- 9749 October, [facility] [place] [facility] [address] [id number] [place] [address]- 5617 Sep, [facility] [place] [facility] [address] [id number] [place] [address]- 9477 Sep, [facility] [place] [facility] [address] [id number] [place] [address]- 0204 Sep, [facility] [place] [facility] [address] [id number] [place] [address]- 9371 Sep, [facility] [place] [facility] [address] [id number] [place] [address]- 1024 Sep, [facility] [place] [facility] [address] [id number] [place] [address]- 2227 Sep, [facility] [place] [facility] [address] [id number] [place] [address]- 4312 Sep, [facility] [place] [facility] [address] [id number] [place] [address]- 0863 Sep, [facility] [place] [facility] [address] [id number] [place] [address]- 3380 Sep, [facility] [place] [facility] [address] [id number] [place] [address]- 7744 Sep, [facility] [place] [facility] [address] [id number] [place] [address]- 1776 Aug, [facility] [place] [facility] [address] [id number] [place] [address]- 6316 Aug, [facility] [place] [facility] [address] [id number] [place] [address]- 6318 Aug, [facility] [place] [facility] [address] [id number] [place] [address]- 9710 Aug, [facility] [place] [facility] [address] [id number] [place] [address]- 2232 Aug, [facility] [place] [facility] [address] [id number] [place] [address]- 0397 Aug, [facility] [place] [facility] [address] [id number] [place] [address]- 6075 Aug, [facility] [place] [facility] [address] [id number] [place] [address]- 8770 Aug, [facility] [place] [facility] [address] [id number] [place] [address]- 1348 Aug, [facility] [place] [facility] [address] [facility] [id number] [place] [address]- 9013 Jul, [facility] [place] [facility] [address] [id number] [place] [address]- 6716 Jul, [facility] [place] [facility] [address] [id number] [place] [address]- 6245 Jul, [facility] [place] [facility] [address] [id number] [place] [address]- 2894 Jul, [facility] [place] [facility] [address] [facility] [id number] [place] [address]- 4126 Jul, [facility] [place] [facility] [address] [facility] [id number] [place] [address]- 2103 Jul, [facility] [place] [facility] [address] [id number] [place] [address]- 1121 Jul, [facility] [place] [facility] [address] [id number] [place] [address]- 0586 Jul, [facility] [place] [facility] [address] [facility] [id number] [place] [address]- 1676 Jul, [facility] [place] [facility] [address] [id number] [place] [address]- 3974 Jul, [facility] [place] [facility] [address] [id number] [place] [address]- 3781 Jul, [facility] [place] [facility] [address] [id number] [place] [address]- 0122 Jul, [facility] [place] [facility] [address] [facility] [id number] [place] [address]- 9686 Jul, [facility] [place] [facility] [address] [id number] [place] [address]- 8112 Jul, [facility] [place] [facility] [address] [facility] [id number] [place] [address]- 0258 Jul, [facility] [place] [facility] [address] [facility] [id number] [place] [address]- 9910 Jul, [facility] [place] [facility] [address] [facility] [id number] [place] [address]- 1485 Jun, [facility] [place] [facility] [address] [id number] [place] [address]- 7675 Jun, [facility] [place] [facility] [address] [id number] [place] [address]- 0364 Jun, [facility] [place] [facility] [address] [facility] [id number] [place] [address]- 2537 Jun, [facility] [place] [facility] [address] [facility] [id number] [place] [address]- 1841 Jun, [facility] [place] [facility] [address] [id number] [place] [address]- 7747 Jun, [facility] [place] [facility] [address] [id number] [place] [address]- 5575 May, [facility] [place] [facility] [address] [id number] [place] [address]- 3007 May, [facility] [place] [facility] [address] [id number] [place] [address]- 5198 May, [facility] [place] [facility] [address] [id number] [place] [address]- 4137 May, [facility] [place] [facility] [address] [id number] [place] [address]- 1121 Apr, [facility] [place] [facility] [address] [id number] [place] [address]- 9048 Apr, [facility] [place] [facility] [address] [id number] [place] [address]- 9643 Apr, [facility] [place] [facility] [address] [id number] [place] [address]- 5391 Apr, [facility] [place] [facility] [address] [id number] [place] [address]- 8458 Apr, [facility] [place] [facility] [address] [id number] [place] [address]- 6985 Apr, [facility] [place] [facility] [address] [id number] [place] [address]- 7850 Apr, [facility] [place] [facility] [address] [id number] [place] [address]- 7921 Apr, [facility] [place] [facility] [address] [id number] [place] [address]- 1759 Apr, [facility] [place] [facility] [address] [id number] [place] [address]- 8783 Apr, [facility] [place] [facility] [address] [id number] [place] [address]- 2129 Apr, [facility] [place] [facility] [address] [id number] [place] [address]- 3973 Apr, [facility] [place] [facility] [address] [id number] [place] [address]- 4256 28 Mar, 2013 [facility] [place] [facility] [address] [id number] [place] [address]- 5752 28 Mar, 2013 [facility] [place] [facility] [address] [id number] [place] [address]- 7149 16 Mar, 2013 [facility] [place] [facility] [address] [id number] [place] [address]- 3516 16 Mar, 2013 [facility] [place] [facility] [address] [id number] [place] [address]- 6397 15 Mar, 2013 [facility] [place] [facility] [address] [id number] [place] [address]- 4882 15 Mar, 2013 [facility] [place] [facility] [address] [id number] [place] [address]- 4127 27 Feb, 2013 [facility] [place] [facility] [address] [id number] [place] [address]- 8530 25 Feb, 2013 [facility] [place] [facility] [address] [id number] [place] [address]- 3632 25 Feb, 2013 [facility] [place] [facility] [address] [id number] [place] [address]- 7570 23 Feb, 2012 [facility] [place] [facility] [address] [id number] [place] [address] 2545 17 Feb, 2012 [facility] [place] [facility] [address] [id number] [place] [address] 2546 10 Feb, 2013 [facility] [place] [facility] [address] [id number] [place] [address]- 6640 04 Feb, 2013 [facility] [place] [facility] [address] [id number] [place] [address]- 2541 30 Jan, 2013 [facility] [place] [facility] [address] [id number] [place] [address]- 9472 Jan, [facility] [place] [facility] [address] [id number] [place] [address]- 3067 Jan, [facility] [place] [facility] [address] [id number] [place] [address]- 2584 Jan, [facility] [place] [facility] [address] [id number] [place] [address]- 6168 Jan, [facility] [place] [facility] [address] [id number] [place] [address]- 3818 Jan, [facility] [place] [facility] [address] [id number] [place] [address]- 9257 Jan, [facility] [place] [facility] [address] [id number] [place] [address]- 9591 Dec, [facility] [place] [facility] [address] [id number] [place] [address]- 2705 Dec, [facility] [place] [facility] [address] [id number] [place] [address]- 2120 Dec, [facility] [place] [facility] [address] [id number] [place] [address]- 2489 Dec, [facility] [place] [facility] [address] [id number] [place] [address]- 9791 Dec, [facility] [place] [facility] [address] [id number] [place] [address]- 9978 Dec, [facility] [place] [facility] [address] [id number] [place] [address]- 4638 Nov, [facility] [place] [facility] [address] [id number] [place] [address]- 7312 Nov, [facility] [place] [facility] [address] [id number] [place] [address]- 2977 Nov, [facility] [place] [facility] [address] [id number] [place] [address]- 2454 Nov, [facility] [place] [facility] [address] [id number] [place] [address] October, [facility] [address] [id number] [place] [address] October, [facility] [address] [id number] [place] [address] October, [facility] [address] [id number] [place] [address] October, [facility] [address] [id number] [place] [address] Sep, [facility] [address] [id number] [place] [address] Sep, [facility] [address] [id number] [place] [address] Sep, [facility] [address] [id number] [place] [address] Sep, [facility] [address] [id number] [place] [address] Sep, [facility] [address] [id number] [place] [address] Sep, [facility] [address] [id number] [place] [address] Sep, [facility] [address] [id number] [place] [address] Sep, [facility] [address] [id number] [place] [address] Aug, [facility] [address] [id number] [place] [address] Aug, [facility] [address] [id number] [place] [address] 05 Aug, 2012 [facility] [address] [id number] [place] [address] 18 Jul, 2012 [facility] [address] [id number] [place] [address] 08 Jul, 2012 [facility] [address] [id number] [place] [address] 07 Jul, 2012 [facility] [address] [id number] [place] [address] 06 Jul, 2012 [facility] [place] [facility] [address] [id number] [place] [address] 05 Jul, 2012 [facility] [address] [id number] [place] [address]- 245[address] Jun, [facility] [address] [id number] [place] [address] Jun, [facility] [address] [id number] [place] [address] Jun, [facility] [address] [id number] [place] [address] May, [facility] [address] [id number] [place] [address] May, [facility] [address] [facility] [id number] [place] [address] May, [facility] [address] [id number] [place] [address] May, [facility] [place] [facility] [address] [id number] [place] [address] 254 May, [facility] [place] [facility] [address] [id number] [place] [address] May, [facility] [place] [facility] [address] [id number] [place] [address] 47[address] May, [facility] [address] [id number] [place] [address] Apr, [facility] [place] [facility] [address] [id number] [place] [address] Apr, [facility] [place] [facility] [address] [id number] [place] [address] Apr, [facility] [place] [facility] [address] [id number] [place] [address] Apr, [facility] [place] [facility] [address] [id number] [place] [address]- [address] Apr, [facility] [place] [facility] [address] [id number] [place] [address] Apr, [facility] [place] [facility] [address] [id number] [place] [address]- 46[address] Apr, [facility] [place] [facility] [address] [id number] [place] [address] Apr, [facility] [place] [facility] [address] [id number] [place] [address]- [address] Apr, [facility] [place] [facility] [address] [id number] [place] [address]- [address] Apr, [facility] [place] [facility] [address] [id number] [place] [address]- 9[address] Apr, [facility] [place] [facility] [address] [id number] [place] [address]- 95[address] Mar, [facility] [place] [facility] [address] [id number] [place] [address]- 1470 Mar, [facility] [place] [facility] [address] [id number] [place] [address] Mar, [facility] [place] [facility] [address] [id number] [place] [address] Mar, [facility] [place] [facility] [address] [id number] [place] [address]- 7027 Mar, [facility] [place] [facility] [address] [id number] [place] [address]- [address] 23 Mar, 2012 [facility] [place] [facility] [address] [id number] [place] [address]- 94[address] 19 Mar, 2012 [facility] [place] [facility] [address] [id number] [place] [address]- [address] 19 Mar, 2012 [facility] [place] [facility] [address] [facility] [id number] [place] [address] 84[address] 16 Mar, 2012 [facility] [place] [facility] [address] [id number] [place] [address]- 4469 16 Mar, 2012 [facility] [place] [facility] [address] [id number] [place] [address]- 5870 04 Mar, 2012 [facility] [place] [facility] [address] [id number] [place] [address]- [address] 28 Sep, 2011 [facility] [place] [facility] [address] [id number] [place] [address] 27 Sep, 2011 [facility] [place] [facility] [address] [id number] [place] [address] 27 Sep, 2011 [facility] [place] [facility] [address] [id number] [place] [address]- 50[address] 26 Sep, 2011 [facility] [place] [facility] [address] [id number] [place] [address]- 3847 24 Sep, 2011 [facility] [place] [facility] [address] [id number] [place] [address] 19 Sep, 2011 [facility] [place] [facility] [address] [id number] [place] [address] 18 Sep, 2011 [facility] [place] [facility] [address] [id number] [place] [address] 2546 18 Sep2011 [facility] [place] [facility] [address] [facility] [id number] [place] [address]- [address] 18 Feb, 2011 [facility] [place] [facility] [address] [place] [facility] [id number] [place] [address] 30 Jan, 2012 [facility] [place] [facility] [address] [id number] [place] [address] Jan, [facility] [address] [id number] [place] [address] Jan, [facility] [place] [facility] [address] [id number] [place] [address] Jan, [facility] [address] [id number] [place] [address] Dec, [facility] [place] [facility] [address] [id number] [place] [address] Dec, [facility] [place] [facility] [address] [id number] [place] [address] Dec, [facility] [address] [id number] [place] [address] Dec, [facility] [address] [id number] [place] [address] Dec, [facility] [address] [id number] [place] [address] Dec, [facility] [place] [facility] [address] [id number] [place] [address] Dec, [facility] [address] [id number] [place] [address] Dec, [facility] [place] [facility] [address] [id number] [place] [address] Dec, [facility] [place] [facility] [address] [id number] [place] [address]007 Dec, [facility] [place] [facility] [address] [id number] [place] [address] Dec, [facility] [place] [facility] [address] [id number] [place] [address] Dec, [facility] [place] [facility] [address] [id number] [place] [address] 97[address] Dec, [facility] [place] [facility] [address] [id number] [place] [address] 05 Dec, 2011 [facility] [place] [facility] [address] [id number] [place] [address]14 26 Nov, 2011 [facility] [place] [facility] [address] [id number] [place] [address] 14 Nov, 2011 [facility] [place] [facility] [address] [id number] [place] [address]679 Nov, [facility] [place] [facility] [address] [id number] [place] [address] 2280 Nov, [facility] [place] [facility] [address] [id number] [place] [address] 2534 Nov, [facility] [place] [facility] [address] [id number] [place] [address] 30[address] Nov, [facility] [place] [facility] [address] [id number] [place] [address]22 30 Oct, 2011 [facility] [place] [facility] [address] [id number] [place] [address] October, [facility] [place] [facility] [address] [id number] [place] [address] 8810 October, [facility] [place] [facility] [address] [id number] [place] [address] 8560 October, [facility] [place] [facility] [address] [id number] [place] [address] 9827 19 Sep, 2011 [facility] [place] [facility] [address] [id number] [place] [address]64 17 Sep, 2011 [facility] [place] [facility] [address] [id number] [place] [address] 13 Sep, 2011 [facility] [place] [facility] [address] [id number] [place] [address] 09 Sep, 2011 [facility] [place] [facility] [address] [id number] [place] [address] Sep, [facility] [address] [facility] [id number] [place] [address] Aug, [facility] [address] [facility] [id number] [place] [address] 26 Aug, 2011 [facility] [address] [facility] [id number] [place] [address] Aug, [facility] [address] [facility] [id number] [place] [address] 20 Aug, 2011 [facility] [address] [facility] [id number] [place] [address] 13 Aug, 2011 [facility] [address] [facility] [id number] [place] [address] 8604 Aug, [facility] [id number] [address] Aug, [facility] [address] [facility] [id number] [place] [address] 16 Jul, 2011 [facility] [id number] [address] 16 Jul, 2011 [facility] [address] [id number] [place] [address] 15 Jul, 2011 [facility] [address] [id number] [place] [address] 2092 15 Jul, 2011 [facility] [address] [facility] [id number] [place] [address] [address], [address] [facility] [address] [place] [id number] Jun, [facility] [address] [facility] [id number] [place] [address] 3594 18 Jun, 2011 [facility] [address] [id number] [place] [address] 9534 Jun, [facility] [id number] [address] Jun, [facility] [address] [id number] [place] [address] 8643 Jun, [facility] [address] [id number] [place] [address]- 7284 Jun, [facility] [address] [id number] [place] [address]- 8510 Jun, [facility] [address] [id number] [place] [address]- 9307 May, [facility] [address] [id number] [place] [address]- 6296 May, [facility] [address] [id number] [place] [address] 0091 May, [facility] [address] [id number] [place] [address]- 6894 May, [facility] [address] [id number] [place] [address]- 9184 May, [facility] [address] [id number] [place] [address]- 6174 May, [facility] [address] [id number] [place] [address]- 5027 May, [facility] [address] [id number] [place] [address]- 5026 Apr, [facility] [address] [id number] [place] [address]- 1560 Apr, [facility] [place] [facility] [address] [id number] [place] [address]- 4168 Apr, [facility] [place] [facility] [address] [id number] [place] [address]- 1778 Mar, [facility] [address] [id number] [place] [address]- 1421 Mar, [facility] [place] [facility] [address] [id number] [place] [address]- 2131 14 Mar, 2011 [facility] [place] [facility] [address] [id number] [place] [address]- 9016 11 Mar, 2011 [facility] [place] [facility] [address] [id number] [place] [address]- 7102 10 Mar, 2011 [facility] [place] [facility] [address] [id number] [place] [address]- 6145 10 Mar, 2011 [facility] [place] [facility] [address] [id number] [place] [address]- 0163 10 Mar, 2011 [facility] [place] [facility] [address] [id number] [place] [address]- 1611 11 Jan, 2011 [facility] [place] [facility] [address] [id number] [place] [address]- 3344 27 May, 2010 [facility] [place] [facility] [address] [id number] [place] [address]- 6384 21 May, 2010 [facility] [place] [facility] [address] [id number] [place] [address]- 0536 May, [facility] [place] [facility] [address] [id number] [place] [address]- 5537 May, [facility] [place] [facility] [address] [id number] [place] [address]- 0743 May, [facility] [place] [facility] [address] [id number] [place] [address]- 5402 06 May, 2010 [facility] [place] [facility] [address] [id number] [place] [address]- 2548 29 Apr, 2010 [facility] [place] [facility] [address] [id number] [place] [address]- 9810 Apr, [facility] [place] [facility] [address] [id number] [place] [address] 19 Apr, 2010 [facility] [place] [facility] [address] [id number] [place] [address]- 8133 Apr, [facility] [id number] [address] 299[address] Apr, [facility] [id number] [address]- 7760 Apr, [facility] [id number] [address]- 5111 Apr, [facility] [id number] [address]- 9272 Apr, [facility] [id number] [place] [address]56 Apr, [facility] [id number] [address] 1900 Apr, [facility] [id number] [address] 4383 Mar, [facility] [id number] [address]- 3550 Mar, [facility] [address]65[address] [address]- 1330 Mar, [facility] [id number] [address]- 9152 Mar, [facility] [id number] [address]- 6909 Mar, [facility] [id number] [address]- 2167 Dec, [facility] [id number] [address]- 9728 Nov, IMMUNIZATIONS No Known Immunizations SOCIAL HISTORY Never Assessed REASON FOR VISIT Change coumadin PLAN OF CARE VITAL SIGNS MEDICATIONS Medication Instructions Dosage Frequency Start Date End Date Duration Status Coumadin 1 MG Orally 1.5mg Saturday, Saturday, , Saturday, Saturday. 1mg on Saturday and Saturday 1 tablet Active RESULTS No Results PROCEDURES No Known [...] graft, cholecysectomy Hospitalization History [facility] 12/2016 [facility]2017 Hospitalization History [facility] 01/2018
--- OUTSIDE RECORDS SUMMARY | 2018-07-05 14:50 | XMS REPORT ---
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 Name Role Phone NAHOMY BETH Unavailable PROBLEMS Type Condition ICD9-CM Code [id number] Code Onset Dates Condition Status SNOMED Code Problem Anemia, unspecified type D64.9 Active 308159886 Problem Personality disorder F60.9 Active 06092909 Problem Factitious disorder imposed on self, recurrent episode F68.10 Active 09068195 Problem Ventral hernia without obstruction or gangrene K43.9 Active 139545093 Problem Allergic state, subsequent encounter T78.40XD Active 711409421 Problem Anxiety F41.9 Active 03385089 Problem Age-related osteoporosis without current pathological fracture M81.0 Active 59334540 Problem Unspecified psychosis not due to a substance or known physiological condition F29 Active 23871431 Problem Iron deficiency anemia, unspecified iron deficiency anemia type D50.9 Active 74810964 Problem History of CVA with residual deficit I69.30 Active 426736977 Problem Seizure disorder G40.909 Active 525604130 Problem Perennial allergic rhinitis, unspecified allergic rhinitis trigger J30.89 Active 112389919 Problem Chronic kidney disease, unspecified stage N18.9 Active 792861826 Problem Back pain M54.9 Active 246271861 Problem Gastroesophageal reflux disease without esophagitis K21.9 Active 652575075 Problem Insomnia, unspecified type G47.00 Active 465336802 Problem History of colon polyps Z86.010 Active 708791198 ALLERGIES No Information ENCOUNTERS Encounter Location Date Diagnosis [facility] [id number], [place] [address] Apr, [facility] [id number], [place] [address] 04[address] Mar, [facility] [id number] [place] [address] 76999- 0922 Mar, Back pain M54.9 [facility] [id number] [place] [address] 634255- 3976 Mar, Back pain M54.9 and Encounter for immunization Z23 [facility] [id number] [place] [address] 03769- 1249 Feb, [facility] [id number] [place] [address] 97749- 4399 Feb, Unspecified psychosis not due to a substance or known physiological condition F29 ; Personality disorder F60.9 and Factitious disorder imposed on self, recurrent episode F68.10 [facility] [id number] [place] [address] 45692- 9059 Feb, Back pain M54.9 [facility] [id number] [place] [address] 19389- 2738 Jan, Unspecified psychosis not due to a substance or known physiological condition F29 ; Personality disorder F60.9 and Factitious disorder imposed on self, recurrent episode F68.10 [facility] [id number] [place] [address] 71109- 2288 Jan, [facility] [id number] [place] [address] 53272- 9956 Jan, Back pain M54.9 and Seizure disorder G40.909 [facility] [id number] [place] [address] 44650- 6728 Jan, Back pain M54.9 [facility] [id number] [place] [address] 15918- 3518 Jan, Back pain M54.9 [facility] [id number] [place] [address] 34655- 1158 Jan, [facility] [id number] [place] [address] 48766- 4380 Jan, Unspecified psychosis not due to a substance or known physiological condition F29 ; Personality disorder F60.9 and Factitious disorder imposed on self, recurrent episode F68.10 [facility] [facility] [id number] [place] [address] 19847- 1891 Dec, Back pain M54.9 ; Seizure disorder G40.909 ; Ventral hernia without obstruction or gangrene K43.9 and History of CVA with residual deficit I69.30 [place] [facility] [id number] [place] [address] 61299- 4779 Dec, Unspecified psychosis not due to a substance or known physiological condition F29 ; Personality disorder F60.9 and Factitious disorder imposed on self, recurrent episode F68.10 [place] [facility] [id number] [place] [address] 31750- 2642 Dec, [place] [facility] [id number] [place] [address] 23230- 8459 Dec, Back pain M54.9 [place] [facility] [id number] [place] [address] 69586- 7542 Dec, Factitious disorder imposed on self, recurrent episode F68.10 ; Personality disorder F60.9 ; Insomnia, unspecified type G47.00 and Anxiety F41.9 [place] [facility] [id number] [place] [address] 74908- 8555 Nov, Unspecified psychosis not due to a substance or known physiological condition F29 ; Personality disorder F60.9 and Factitious disorder imposed on self, recurrent episode F68.10 [place] [id number] [place] [address] 80815- 6108 19 Nov, 2017 Back pain M54.9 [place] [facility] [id number] [place] [address] 72847- 0287 12 Nov, 2017 Unspecified psychosis not due to a substance or known physiological condition F29 ; Personality disorder F60.9 and Factitious disorder imposed on self, recurrent episode F68.10 [place] [facility] [id number] [place] [address] 53268- 1753 October, [facility] [address], [place] [address]- 8697 October, [facility] [id number] [place] [address] 99022- 3155 October, Unspecified psychosis not due to a substance or known physiological condition F29 ; Personality disorder F60.9 and Factitious disorder imposed on self, recurrent episode F68.10 [facility] [address], [place] [address] 0804 October, Back pain M54.9 [facility] [id number] [place] [address] 11704- 9627 October, Seizure disorder G40.909 ; Back pain M54.9 and Allergic state, subsequent encounter T78.40XD [facility] [id number] [place] [address] 97093- 5293 October, [facility] [id number] [place] [address] 44670- 1329 Sep, Back pain M54.9 [facility] [id number] [place] [address] 93653- 9011 Sep, Unspecified psychosis not due to a substance or known physiological condition F29 ; Personality disorder F60.9 and Factitious disorder imposed on self, recurrent episode F68.10 [facility] [address], [place] [address]- 4686 Sep, [facility] [address], [place] [address]- 5836 Sep, [facility] [id number] [place] [address] 03165- 8060 Sep, [facility] [address], [place] [address]- 9749 Sep, [facility] [id number] [place] [address] 04330- 8457 Aug, [facility] [id number], [place] [address]- 1041 Aug, Back pain M54.9 [facility] [address], [place] [address]- 3889 Aug, Factitious disorder imposed on self, recurrent episode F68.10 ; Personality disorder F60.9 ; Insomnia, unspecified type G47.00 and Anxiety F41.9 [facility] [address], [place] [address] 5329 Aug, Back pain M54.9 ; Iron deficiency anemia, unspecified iron deficiency anemia type D50.9 ; Chronic kidney disease, unspecified stage N18.9 and Breast cancer screening [facility].31 [facility] [id number] [id number] Jul, Back pain M54.9 [facility] [id number] [place] [address] [id number] Jul, [facility] [id number] [place] [address] [id number] Jul, [facility] [id number] [place] [address] [id number] Jun, Back pain M54.9 [facility] [id number] [id number] Jun, [facility] [id number] [place] [address] [id number] Jun, Back pain M54.9 [facility] [id number] [address]505 Jun, Back pain M54.9 ; Seizure disorder G40.909 and Age-related osteoporosis without current pathological fracture M81.0 [facility] [id number] [id number] May, [facility] [id number] [place] [address] 89101- 2397 May, Back pain M54.9 [facility] [address], [place] [address]- 9742 Apr, Back pain M54.9 ; Encounter for immunization Z23 ; Gastroesophageal reflux disease without esophagitis K21.9 ; Age-related osteoporosis without current pathological fracture M81.0 and Chronic pruritus L29.9 [facility] [id number] [place] [address] 23069- 3487 Apr, History of CVA with residual deficit I69.30 [facility] [id number] [place] [address] 04238- 2020 Apr, Factitious disorder imposed on self, recurrent episode F68.10 and Personality disorder F60.9 [facility] [id number] [place] [address] [id number] Apr, Back pain M54.9 [facility] [id number] [place] [address] 22910- 7244 Mar, Factitious disorder imposed on self, recurrent episode F68.10 [facility] [id number] [place] [address] 55101- 4164 Mar, [facility] [id number] [place] [address] [id number] Mar, [facility] [id number] [place] [address] [id number] Mar, Back pain M54.9 [facility] [id number] [place] [address] 67429- 2656 Mar, Back pain M54.9 ; Seizure disorder G40.909 and Age-related osteoporosis without current pathological fracture M81.0 [facility] [id number] [place] [address] 36638- 6024 Feb, History of CVA with residual deficit I69.30 [facility] [id number] [place] [address] 57750- 8702 Feb, Factitious disorder imposed on self, recurrent episode F68.10 and Personality disorder F60.9 [facility] [address], [place] [address]- 6476 Feb, Back pain M54.9 [facility] [id number], [place] [address]- 8527 Feb, [facility] [id number] [place] [address] 20979- 1524 Jan, [facility] [address] [id number] Jan, Age- related osteoporosis without current pathological fracture M81.0 and Allergic state, subsequent encounter T78.40XD [facility] [id number] [place] [address] 12855- 9366 Jan, Factitious disorder imposed on self, recurrent episode F68.10 and Personality disorder F60.9 [facility] [id number] [place] [address] 51998- 2005 Dec, Back pain M54.9 [facility] [id number] [place] [address] 01063- 2817 Dec, Personality disorder F60.9 and Factitious disorder imposed on self, recurrent episode F68.10 [facility] [id number] [id number] Dec, Back pain M54.9 [facility] [id number] [place] [address] [id number] Dec, [facility] [id number] [place] [address] [id number] Dec, [facility] [id number] [place] [address] [phone]- 6169 Dec, [facility] [address], [place] [address]- 8023 Nov, [facility] [id number] [place] [address] 21949- 1275 Nov, Back pain M54.9 ; Anemia, unspecified type D64.9 and History of colon polyps Z86.010 [facility] [id number] [place] [address] 11795- 4291 Nov, Back pain M54.9 [facility] [id number] [place] [address] [id number] October, Back pain M54.9 [facility] [address] [place] [id number] October, Back pain M54.9 and Gastroesophageal reflux disease without esophagitis K21.9 [facility] [id number] [place] [address] [id number] Sep, [facility] [id number] [place] [address] 94740- 9095 Sep, [facility] [id number] [place] [address] 18063- 6393 Sep, [facility] [id number] [place] [address] 43446- 1091 Sep, [facility] [id number] [place] [address] 93315- 8469 Sep, [facility] [id number] [place] [address] 10667- 5907 Sep, Seizure disorder G40.909 [facility] [id number] [place] [address] 47544- 6809 Sep, Back pain M54.9 [facility] [id number] [place] [address] 16145- 2290 Sep, [facility] [id number] [place] [address] 61406- 9960 Aug, Back pain M54.9 [facility] [id number] [place] [address] 15991- 8598 Aug, Seizure disorder G40.909 [facility] [id number] [id number] 17 Aug, 2016 [facility] [id number] [id number] 16 Aug, 2016 Back pain M54.9 [facility] [id number] [id number] 14 Aug, [address] [facility] [id number] [id number] 06 Aug, 2016 Back pain M54.9 [facility] [address] [place] [address] [id number] Jul, Weakness R53.1 [facility] [id number] [place] [address] 24024- 5549 Jul, Seizure disorder G40.909 [facility] [id number] [place] [address] 85338- 5262 Jul, [facility] [id number] [place] [address] 62230- 5033 Jul, Breast cancer screening Z12.39 [facility] [id number] [place] [address] 20710- 6030 Jul, [facility] [address], [place] [address]- 7438 Jul, [facility] [address], [place] [address]- 1920 Jul, [facility] [address], [place] [address]- 2723 13 Jul, 2016 Seizure disorder G40.909 ; Fatigue, unspecified type R53.83 ; Perennial allergic rhinitis, unspecified allergic rhinitis trigger J30.89 and Chronic kidney disease, unspecified stage N18.9 [facility] [address], [place] [address]- 7112 06 Jul, 2016 [facility] [address], [place] [address]- 1632 Jul, Seizure disorder G40.909 [facility] [address], [place] [address]- 2931 Jun, [facility] [id number] [place] [address] 911336- 6564 Jun, [address] [id number] Jun, Perennial allergic rhinitis, unspecified allergic rhinitis trigger J30.89 [facility] [id number] [place] [address] [id number] Jun, [facility] [id number] [place] [address] 13035- 3123 Jun, Seizure disorder G40.909 [facility] [id number] [place] [address] [id number] Jun, [facility] [id number] [place] [address] [id number] May, [facility] [id number] [place] [address] 32182- 5213 May, [facility] [id number] [place] [address] 01780- 6197 May, [facility] [id number] [place] [address] 69693- 5761 May, [facility] [id number] [place] [address] 66289- 6090 May, History of CVA with residual deficit I69.30 [facility] [address], [place] [address]- 6412 May, [facility] [id number] [place] [address] [id number]- 5811 May, [facility] [id number] [place] [address] 92554- 9576 May, [facility] [id number], [place] [address]- 2447 May, Seizure disorder G40.909 [facility] [id number] [place] [address] 45910- 4183 May, [facility] [address] [place] [address] May, Back pain M54.9 and Seizure disorder G40.909 [facility] [id number] [place] [address] 78732- 7417 Apr, [facility] [id number] [place] [address] 27453- 5677 Apr, Back pain M54.9 [facility] [id number] [place] [address] 07587- 7120 Mar, [facility] [address] [place] [address] Mar, Insomnia, unspecified type G47.00 [facility] [id number] [place] [address] 16333- 6646 Mar, [facility] [id number] [place] [address] 04966- 0353 Feb, [facility] [id number] [place] [address] 48613- 9474 Feb, [facility] [id number] [place] [address] 45271- 4375 Feb, [facility] [id number] [place] [address] 33684- 1834 Jan, [facility] [id number] [place] [address] 62255- 2301 Jan, [facility] [address] [place] [address] Jan, Seizure disorder G40.909 and Back pain M54.9 [facility] [id number] [place] [address] 07472- 1122 Dec, [facility] [address], [place] [address]- 1425 Dec, [facility] [id number] [place] [address] 64148- 0544 Dec, [facility] [address], [place] [address]- 6756 Nov, [facility] [id number] [place] [address] 14080- 2914 Nov, [facility] [id number] [place] [address] 70974- 8239 Nov, Back pain M54.9 [facility] [id number] [place] [address] 35890- 6716 October, [facility] [id number] [place] [address] 25957- 6390 October, Back pain M54.9 [facility] [id number] [place] [address] 74209- 2125 October, Seizure disorder G40.909 and B12 deficiency E53.8 [facility] [id number] [place] [address] 40696- 2014 Sep, History of CVA with residual deficit I69.30 [facility] [address], [place] [address]- 0521 Sep, [facility] [address], [place] [address]- 7173 Sep, [facility] [address], [place] [address]- 5450 Sep, Back pain M54.9 [facility] [address], [place] [address]- 2166 Sep, Seizure disorder G40.909 [facility] [address], [place] [address]- 3614 Aug, Back pain M54.9 [facility] [address], [place] [address]- 5668 Aug, Seizure disorder G40.909 [facility] [id number] [place] [address] 12482- 5923 Aug, Back pain M54.9 [facility] [id number] [place] [address] 50714- 6911 Aug, Heart failure, unspecified I50.9 [facility] [id number] [place] [address] 54954- 3391 14 Aug, 2015 Medication monitoring encounter Z51.81 [facility] [id number] [place] [address] 54461- 8141 15 Jul, 2015 [facility] [id number] [place] [address] 21478- 8923 09 Jul, 2015 Seizure disorder G40.909 [facility] [id number] [place] [address] 00474- 4554 05 Jul, 2015 Back pain M54.9 [facility] [id number] [place] [address] 28531- 4403 Jun, [facility] [id number] [place] [address] 07267- 1671 Jun, [facility] [id number] [place] [address] 95001- 6135 Jun, Mental status change R41.82 ; History of CVA with residual deficit I69.30 ; Back pain M54.9 and Seizure disorder G40.909 [facility] [id number] [place] [address] 02807- 2754 Jun, [facility] [id number] [place] [address] 52228- 7468 May, [facility] [id number] [place] [address] 03917- 8617 Apr, [facility] [address] [id number] [place] [address]- 0096 Apr, Medication monitoring encounter Z51.81 [facility] [address] [id number] [place] [address]- 9086 Mar, Vomiting R11.10 [facility] [address] [id number] [place] [address]- 2546 Mar, [facility] [address] [id number] [place] [address]- 2546 Feb, [facility] [address] [id number] [place] [address]- 3286 Feb, UTI (urinary tract infection) 599.0 [facility] [address] [id number] [place] [address]- 2546 Jan, [facility] [address] [id number] [place] [address]- 2546 Jan, [facility] [address] [id number] [place] [address]- 2546 Jan, [facility] [address] [id number] [place] [address] Dec, [facility] [address] [id number] [place] [address] Dec, [facility] [address] [id number] [place] [address] Dec, [facility] [address] [id number] [place] [address] Dec, [facility] [address] [id number] [place] [address] Nov, UNKNOWN Nov, [facility] [address] [id number] [place] [address] October, [facility] [address] [id number] [place] [address] Sep, [facility] [place] [facility] [address] [id number] [place] [address] Sep, [facility] [place] [facility] [address] [address] [id number] [place] [address] Aug, [facility] [place] [facility] [address] [id number] [place] [address] Aug, [facility] [place] [facility] [address] [id number] [place] [address] 1569 Jul, [facility] [place] [facility] [address] [id number] [place] [address] 5728 Jul, [facility] [place] [facility] [address] [id number] [place] [address] Jul, [facility] [place] [facility] [address] [id number] [place] [address] 1723 Jul, [facility] [place] [facility] [address] [id number] [place] [address]- 0916 Jul, [facility] [place] [facility] [address] [id number] [place] [address] 7416 Jun, [facility] [place] [facility] [address] [id number] [place] [address]- 5970 Jun, [facility] [place] [facility] [address] [id number] [place] [address] 1882 Jun, [facility] [place] [facility] [address] [id number] [place] [address]- 6679 Jun, [facility] [place] [facility] [address] [id number] [place] [address]- 9962 Jun, [facility] [place] [facility] [address] [id number] [place] [address]- 5745 Jun, [facility] [place] [facility] [address] [id number] [place] [address]- 2123 Jun, [facility] [place] [facility] [address] [id number] [place] [address]- 5989 14 Jun, 2014 [facility] [address] [id number] [place] [address]- 8582 Jun, [facility] [place] [facility] [address] [id number] [place] [address]- 5754 Jun, [facility] [address] [id number] [place] [address]- 9527 Jun, [facility] [address] [id number] [place] [address]- 9586 Jun, [facility] [address] [id number] [place] [address] 4339 Jun, [facility] [address] [id number] [place] [address]- 0911 Jun, [facility] [address] [id number] [place] [address]- 1147 Jun, [facility] [address] [id number] [place] [address]- 9527 Jun, [facility] [address] [id number] [place] [address]- 5980 Jun, [facility] [address] [id number] [place] [address]- 7845 Jun, [facility] [address] [id number] [place] [address]- 6171 May, [facility] [place] [facility] [address] [id number] [place] [address]- 4646 May, [facility] [place] [facility] [address] [id number] [place] [address]- 3135 May, [facility] [place] [facility] [address] [id number] [place] [address]- 4336 May, [facility] [place] [facility] [address] [id number] [place] [address]- 8540 May, [facility] [place] [facility] [address] [id number] [place] [address]- 2845 May, [facility] [place] [facility] [address] [id number] [place] [address]- 6448 May, [facility] [place] [facility] [address] [id number] [place] [address]- 7794 May, [facility] [place] [facility] [address] [id number] [place] [address]- 4825 May, [facility] [address] [facility] [place] [id number] May, [facility] [place] [facility] [address] [id number] [place] [address]- 3879 May, [facility] [place] [facility] [address] [id number] [place] [address]- 6715 May, [facility] [place] [facility] [address] [id number] [place] [address]- 4579 May, [facility] [place] [facility] [address] [id number] [place] [address]- 2163 Apr, [facility] [place] [facility] [address] [id number] [place] [address]- 9186 Apr, [facility] [place] [facility] [address] [id number] [place] [address]- 0518 Apr, [facility] [place] [facility] [address] [id number] [place] [address]- 6892 Apr, [facility] [place] [facility] [address] [id number] [place] [address]- 9283 Apr, [facility] [place] [facility] [address] [id number] [place] [address]- 3686 Apr, [facility] [place] [facility] [address] [id number] [place] [address]- 9870 Mar, [facility] [place] [facility] [address] [id number], [place] [address]- [address]70 Mar, [facility] [address] [id number] [place] [address]- 8084 Mar, [facility] [place] [facility] [address] [id number], [place] [address]- 4995 Mar, [facility] [place] [facility] [address] [id number], [place] [address]- 0935 Mar, [facility] [place] [facility] [address] [id number], [place] [address]- 1297 Mar, [facility] [place] [facility] [address] [id number] [place] [address]- 9158 Feb, [facility] [place] [facility] [address] [id number], [place] [address]- 0387 Feb, [facility] [place] [facility] [address] [id number], [place] [address]- 0736 Feb, [facility] [place] [facility] [address] [id number], [place] [address]- 4235 Feb, [facility] [place] [facility] [address] [id number], [place] [address]- 3917 Feb, [facility] [place] [facility] [address] [id number], [place] [address]- 0683 Feb, [facility] [place] [facility] [address] [id number], [place] [address]- 6333 Feb, [facility] [place] [facility] [address] [id number], [place] [address]- 4293 19 Feb, 2014 [facility] [place] [facility] [address] [id number], [place] [address]- 2462 12 Feb, 2014 [facility] [place] [facility] [address] [facility] [id number], [place] [address]- 0146 12 Feb, 2014 [facility] [address] [place] [id number] Feb, [facility] [place] [facility] [address] [id number] [place] [address]- 9184 Feb, [facility] [place] [facility] [address] [id number] [place] [address]- 0601 Jan, [facility] [place] [facility] [address] [id number] [place] [address]- 9021 Jan, [facility] [place] [facility] [address] [id number] [place] [address]- 7902 Dec, [facility] [place] [facility] [address] [id number] [place] [address]- 5862 Dec, [facility] [place] [facility] [address] [id number] [place] [address]- 5489 Dec, [facility] [place] [facility] [address] [id number] [place] [address]- 6403 Dec, [facility] [place] [facility] [address] [id number] [place] [address]- 8894 Dec, [facility] [place] [facility] [address] [id number] [place] [address]- 9075 Dec, [facility] [place] [facility] [address] [id number] [place] [address]- 0936 Dec, [facility] [place] [facility] [address] [id number] [place] [address]- 8190 Dec, [facility] [place] [facility] [address] [id number] [place] [address]- 6516 Dec, [facility] [place] [facility] [address] [id number] [place] [address]- 9392 Dec, [facility] [place] [facility] [address] [id number] [place] [address]- 4400 Nov, [facility] [place] [facility] [address] [id number] [place] [address]- 0938 Nov, [facility] [place] [facility] [address] [id number] [place] [address]- 7046 Nov, [facility] [place] [facility] [address] [id number] [place] [address]- 8281 Nov, [facility] [place] [facility] [address] [id number] [place] [address]- 3658 Nov, [facility] [place] [facility] [address] [id number] [place] [address]- 5539 Nov, [facility] [place] [facility] [address] [id number] [place] [address]- 7104 Nov, [facility] [place] [facility] [address] [id number] [place] [address]- 4990 Nov, [facility] [place] [facility] [address] [id number] [place] [address]- 9986 Nov, [facility] [place] [facility] [address] [id number] [place] [address]- 8104 Nov, [facility] [place] [facility] [address] [id number] [place] [address]- 7960 Nov, [facility] [place] [facility] [address] [id number] [place] [address]- 7175 Nov, [facility] [place] [facility] [address] [id number] [place] [address]- 8789 Nov, [facility] [place] [facility] [address] [id number] [place] [address]- 8084 Nov, [facility] [place] [facility] [address] [id number] [place] [address]- 9510 October, [facility] [place] [facility] [address] [id number] [place] [address]- 0696 October, [facility] [place] [facility] [address] [id number] [place] [address]- 0026 October, [facility] [place] [facility] [address] [id number] [place] [address]- 2041 October, [facility] [place] [facility] [address] [id number] [place] [address]- 0867 October, [facility] [place] [facility] [address] [id number] [place] [address]- 9801 October, [facility] [place] [facility] [address] [id number] [place] [address]- 1502 October, [facility] [place] [facility] [address] [id number] [place] [address] October, [facility] [place] [facility] [address] [id number] [place] [address]- 4545 October, [facility] [place] [facility] [address] [id number] [place] [address]- 8633 October, [facility] [place] [facility] [address] [id number] [place] [address]- 9553 Sep, [facility] [place] [facility] [address] [id number] [place] [address]- 2376 Sep, [facility] [place] [facility] [address] [id number] [place] [address]- 2187 Sep, [facility] [place] [facility] [address] [id number] [place] [address]- 1788 Sep, [facility] [place] [facility] [address] [id number] [place] [address]- 0670 Sep, [facility] [place] [facility] [address] [id number] [place] [address]- 0343 Sep, [facility] [place] [facility] [address] [id number] [place] [address]- 8730 Sep, [facility] [place] [facility] [address] [id number] [place] [address]- 5041 Sep, [facility] [place] [facility] [address] [id number] [place] [address]- 4372 Sep, [facility] [place] [facility] [address] [id number] [place] [address]- 9154 Sep, [facility] [place] [facility] [address] [id number] [place] [address]- 9974 Aug, [facility] [place] [facility] [address] [id number] [place] [address]- 7283 Aug, [facility] [place] [facility] [address] [id number] [place] [address]- 4646 Aug, [facility] [place] [facility] [address] [id number] [place] [address]- 5147 Aug, [facility] [place] [facility] [address] [id number] [place] [address]- 4756 Aug, [facility] [place] [facility] [address] [id number] [place] [address]- 1213 Aug, [facility] [place] [facility] [address] [id number] [place] [address]- 3121 Aug, [facility] [place] [facility] [address] [id number] [place] [address]- 8911 Aug, [facility] [place] [facility] [address] [id number] [place] [address]- 0438 Aug, [facility] [place] [facility] [address] [id number] [place] [address]- 8667 Jul, [facility] [place] [facility] [address] [facility] [id number] [place] [address]- 8789 Jul, [facility] [place] [facility] [address] [id number] [place] [address]- 3138 Jul, [facility] [place] [facility] [address] [id number] [place] [address]- 9967 Jul, [facility] [place] [facility] [address] [id number] [place] [address]- 5526 Jul, [facility] [place] [facility] [address] [facility] [id number] [place] [address]- 1132 Jul, [facility] [place] [facility] [address] [id number] [place] [address]- 3160 Jul, [facility] [place] [facility] [address] [id number] [place] [address]- 8335 Jul, [facility] [place] [facility] [address] [id number] [place] [address]- 5246 Jul, [facility] [place] [facility] [address] [facility] [id number] [place] [address]- 4906 Jul, [facility] [place] [facility] [address] [id number] [place] [address]- 4873 Jul, [facility] [place] [facility] [address] [id number] [place] [address]- 2173 Jul, [facility] [place] [facility] [address] [id number] [place] [address]- 6003 Jul, [facility] [place] [facility] [address] [facility] [id number] [place] [address]- 0013 Jul, [facility] [place] [facility] [address] [id number] [place] [address]- 7314 Jul, [facility] [place] [facility] [address] [id number] [place] [address]- 5801 Jul, [facility] [place] [facility] [address] [facility] [id number] [place] [address]- 6151 Jun, [facility] [place] [facility] [address] [id number] [place] [address]- 8127 Jun, [facility] [place] [facility] [address] [id number] [place] [address]- 1670 Jun, [facility] [place] [facility] [address] [id number] [place] [address]- 6277 Jun, [facility] [place] [facility] [address] [facility] [id number] [place] [address]- 9246 Jun, [facility] [place] [facility] [address] [facility] [id number] [place] [address]- 2436 Jun, [facility] [place] [facility] [address] [id number] [place] [address]- 4237 May, [facility] [place] [facility] [address] [id number] [place] [address]- 4557 May, [facility] [place] [facility] [address] [id number] [place] [address]- 3244 May, [facility] [place] [facility] [address] [id number] [place] [address]- 3934 May, [facility] [place] [facility] [address] [id number] [place] [address]- 3911 Apr, [facility] [place] [facility] [address] [id number] [place] [address]- 6111 Apr, [facility] [place] [facility] [address] [id number] [place] [address]- 1293 Apr, [facility] [place] [facility] [address] [id number] [place] [address]- 4717 Apr, [facility] [place] [facility] [address] [id number] [place] [address]- 9233 Apr, [facility] [place] [facility] [address] [id number] [place] [address]- 2251 Apr, [facility] [place] [facility] [address] [id number] [place] [address]- 8936 Apr, [facility] [place] [facility] [address] [id number] [place] [address]- 5127 Apr, [facility] [place] [facility] [address] [id number] [place] [address]- 6868 Apr, [facility] [place] [facility] [address] [id number] [place] [address]- 8709 Apr, [facility] [place] [facility] [address] [id number] [place] [address]- 2061 Apr, [facility] [place] [facility] [address] [id number] [place] [address]- 9442 Apr, [facility] [place] [facility] [address] [id number] [place] [address]- 5479 28 Mar, 2013 [facility] [place] [facility] [address] [id number] [place] [address]- 8336 28 Mar, 2013 [facility] [place] [facility] [address] [id number] [place] [address]- 6486 16 Mar, 2013 [facility] [place] [facility] [address] [id number] [place] [address]- 5946 16 Mar, 2013 [facility] [place] [facility] [address] [id number] [place] [address]- 3961 15 Mar, 2013 [facility] [place] [facility] [address] [id number] [place] [address]- 9189 15 Mar, 2013 [facility] [place] [facility] [address] [id number] [place] [address]- 5771 27 Feb, 2012 [facility] [place] [facility] [address] [id number], [place] [address] 2542 25 Feb, 2012 [facility] [place] [facility] [address] [id number] [place] [address] 2547 25 Feb, 2012 [facility] [place] [facility] [address] [id number] [place] [address]- 3401 23 Feb, 2012 [facility] [place] [facility] [address] [id number], [place] [address]- 9748 17 Feb, 2012 [facility] [place] [facility] [address] [id number], [place] [address] 254 10 Feb, 2012 [facility] [place] [facility] [address] [id number] [place] [address] 2546 04 Feb, 2012 [facility] [place] [facility] [address] [id number], [place] [address] 2545 30 Jan, 2013 [facility] [place] [facility] [address] [id number] [place] [address]- 2546 20 Jan, 2013 [facility] [place] [facility] [address] [id number] [place] [address]- 9736 Jan, [facility] [place] [facility] [address] [id number] [place] [address]- 4631 Jan, [facility] [place] [facility] [address] [id number] [place] [address]- 6847 Jan, [facility] [place] [facility] [address] [id number] [place] [address]- 5642 Jan, [facility] [place] [facility] [address] [id number] [place] [address]- 4253 Jan, [facility] [place] [facility] [address] [id number] [place] [address]- 1525 Dec, [facility] [place] [facility] [address] [id number] [place] [address]- 2847 Dec, [facility] [place] [facility] [address] [id number] [place] [address]- 2253 Dec, [facility] [place] [facility] [address] [id number] [place] [address]- 4722 Dec, [facility] [place] [facility] [address] [id number] [place] [address]- 2136 Dec, [facility] [place] [facility] [address] [id number] [place] [address]- 5203 Dec, [facility] [place] [facility] [address] [id number] [place] [address]- 1559 Nov, [facility] [place] [facility] [address] [id number] [place] [address]- 5371 Nov, [facility] [place] [facility] [address] [id number] [place] [address]- 4866 Nov, [facility] [place] [facility] [address] [id number] [place] [address]- 6791 Nov, [facility] [place] [facility] [address] [id number] [place] [address]- 6196 October, [facility] [place] [facility] [address] [id number] [place] [address]- 5533 October, [facility] [address] [id number] [place] [address]- 9805 October, [facility] [address] [id number] [place] [address]- 5080 October, [facility] [address] [id number] [place] [address]- 5395 Sep, [facility] [address] [id number] [place] [address]- 3622 Sep, [facility] [address] [id number] [place] [address] Sep, [facility] [address] [id number] [place] [address] Sep, [facility] [address] [id number] [place] [address] Sep, [facility] [address] [id number] [place] [address] Sep, [facility] [address] [id number] [place] [address] Sep, [facility] [address] [id number] [place] [address] Sep, [facility] [address] [id number], [place] [address] Aug, [facility] [address] [id number] [place] [address] Aug, [facility] [address] [id number] [place] [address] Aug, [facility] [address] [id number] [place] [address] Jul, [facility] [address] [id number] [place] [address] 08 Jul, 2012 [facility] [address] [id number] [place] [address]- [address] 07 Jul, 2012 [facility] [place] [facility] [address] [id number] [place] [address]- [address] 06 Jul, 2012 [facility] [address] [id number] [place] [address]- [address] 05 Jul, 2012 [facility] [place] [facility] [address] [id number] [place] [address]- [address] Jun, [facility] [address] [id number] [place] [address] Jun, [facility] [address] [id number] [place] [address] Jun, [facility] [address] [id number] [place] [address] May, [facility] [address] [id number] [place] [address]66 May, [facility] [address] [id number] [place] [address] May, [facility] [address] [facility] [id number] [place] [address]- [address] May, [facility] [address] [id number] [place] [address] May, [facility] [place] [facility] [address] [id number] [place] [address] May, [facility] [place] [facility] [address] [id number] [place] [address]- [address] May, [facility] [place] [facility] [address] [id number] [place] [address] Apr, [facility] [address] [id number] [place] [address]698 Apr, [facility] [place] [facility] [address] [id number] [place] [address]- [address] Apr, [facility] [place] [facility] [address] [id number] [place] [address] 47[address] Apr, [facility] [place] [facility] [address] [id number] [place] [address]- [address] Apr, [facility] [place] [facility] [address] [id number] [place] [address] Apr, [facility] [place] [facility] [address] [id number] [place] [address]- [address] Apr, [facility] [place] [facility] [address] [id number] [place] [address]- [address] Apr, [facility] [place] [facility] [address] [id number] [place] [address] Apr, [facility] [place] [facility] [address] [id number] [place] [address]- [address] Apr, [facility] [place] [facility] [address] [id number] [place] [address] Apr, [facility] [place] [facility] [address] [id number] [place] [address]- [address] Mar, [facility] [place] [facility] [address] [id number] [place] [address] Mar, [facility] [place] [facility] [address] [id number] [place] [address] Mar, [facility] [place] [facility] [address] [id number] [place] [address]- [address] Mar, [facility] [place] [facility] [address] [id number] [place] [address]- [address] Mar, [facility] [place] [facility] [address] [id number] [place] [address]- [address] Mar, [facility] [place] [facility] [address] [id number] [place] [address]- [address]394 19 Mar, 2012 [facility] [place] [facility] [address] [id number] [place] [address]- 9182 19 Mar, 2012 [facility] [place] [facility] [address] [id number] [place] [address]- 0916 16 Mar, 2012 [facility] [place] [facility] [address] [facility] [id number] [place] [address]- [address]266 16 Mar, 2012 [facility] [place] [facility] [address] [id number] [place] [address]- 3584 04 Mar, 2012 [facility] [place] [facility] [address] [id number] [place] [address]- [address]240 28 Sep, 2011 [facility] [place] [facility] [address] [id number] [place] [address]- 8364 27 Sep, 2011 [facility] [place] [facility] [address] [id number] [place] [address]- 0265 27 Sep, 2011 [facility] [place] [facility] [address] [id number] [place] [address]- 5877 26 Sep, 2011 [facility] [place] [facility] [address] [id number] [place] [address]- [address]555 24 Sep, 2011 [facility] [place] [facility] [address] [id number] [place] [address]- [address] 19 Sep, 2011 [facility] [place] [facility] [address] [id number], [place] [address]- [address] 18 Sep, 2011 [facility] [place] [facility] [address] [id number], [place] [address] 18 Feb, 2011 [facility] [place] [facility] [address] [id number] [place] [address] 2546 18 Feb, 2012 [facility] [place] [facility] [address] [facility] [id number], [place] [address]- [address] 30 Jan, 2012 [facility] [place] [facility] [address] [id number] [place] [address]- 0256 23 Jan, 2012 [facility] [place] [facility] [address] [id number] [place] [address]- 225[address] Jan, [facility] [address] [id number] [place] [address]- [address] Jan, [facility] [place] [facility] [address] [id number] [place] [address]- 4636 Dec, [facility] [address] [id number] [place] [address]- 4498 Dec, [facility] [place] [facility] [address] [id number] [place] [address]- 8037 Dec, [facility] [address] [id number] [place] [address]- [address] Dec, [facility] [address] [id number] [place] [address]- 2299 Dec, [facility] [address] [id number] [place] [address]- 0460 Dec, [facility] [address] [id number] [place] [address]- 7955 Dec, [facility] [place] [facility] [address] [id number] [place] [address]- 7897 Dec, [facility] [address] [id number] [place] [address]- 28[address] Dec, [facility] [place] [facility] [address] [id number] [place] [address]- 74[address] Dec, [facility] [place] [facility] [address] [id number] [place] [address] Dec, [facility] [place] [facility] [address] [id number] [place] [address] Dec, [facility] [place] [facility] [address] [id number] [place] [address] Dec, [facility] [place] [facility] [address] [id number] [place] [address] Dec, [facility] [place] [facility] [address] [id number] [place] [address] 26 Nov, 2011 [facility] [place] [facility] [address] [id number] [place] [address] 14 Nov, 2011 [facility] [place] [facility] [address] [id number] [place] [address] Nov, [facility] [place] [facility] [address] [id number] [place] [address] Nov, [facility] [place] [facility] [address] [id number] [place] [address] Nov, [facility] [place] [facility] [address] [id number] [place] [address] Nov, [facility] [place] [facility] [address] [id number] [place] [address] 30 Oct, 2011 [facility] [place] [facility] [address] [id number] [place] [address] 48[address] October, [facility] [place] [facility] [address] [id number] [place] [address] October, [facility] [place] [facility] [address] [id number] [place] [address] October, [facility] [place] [facility] [address] [id number] [place] [address] 19 Sep, 2011 [facility] [place] [facility] [address] [id number] [place] [address] 3560 17 Sep, 2011 [facility] [place] [facility] [address] [id number] [place] [address] 13 Sep, 2011 [facility] [place] [facility] [address] [id number] [place] [address] 0273 09 Sep, 2011 [facility] [place] [facility] [address] [id number] [place] [address]84 03 Sep, 2011 [facility] [place] [facility] [address] [id number], [place] [address] Aug, [facility] [address] [id number] [place] [address]44 26 Aug, 2011 [facility] [address] [facility] [id number], [place] [address] Aug, [facility] [address] [facility] [id number] [place] [address] 20 Aug, 2011 [facility] [address] [facility] [id number], [place] [address] 13 Aug, 2011 [facility] [address] [facility] [id number] [place] [address] 24[address] Aug, [facility] [address] [facility] [id number] [place] [address]- [address] Aug, [facility] [address] [id number], [place] [address] 16 Jul, 2011 [facility] [address] [facility] [id number] [place] [address] 4720 16 Jul, 2011 [facility] [address] [id number], [place] [address]99 15 Jul, 2011 [facility] [address] [id number] [place] [address] 15 Jul, 2011 [facility] [address] [id number], [place] [address] 24 Jun, 2011 [facility] [address] [place] [id number] Jun, [facility] [address] [facility] [id number], [place] [address] 18 Jun, 2011 [facility] [address] [facility] [id number], [place] [address] Jun, [facility] [address] [id number], [place] [address] 12[address] Jun, [facility] [id number] [place] [address] Jun, [facility] [address] [id number] [place] [address] 3965 Jun, [facility] [address] [id number] [place] [address] Jun, [facility] [address] [id number] [place] [address] 0462 May, [facility] [address] [id number] [place] [address] 2499 May, [facility] [address] [id number] [place] [address]- 3790 May, [facility] [address] [id number] [place] [address] 9721 May, [facility] [address] [id number] [place] [address] 3591 May, [facility] [address] [id number] [place] [address] 0672 May, [facility] [address] [id number] [place] [address] 1406 May, [facility] [address] [id number] [place] [address] 6358 Apr, [facility] [address] [id number] [place] [address]- 5756 Apr, [facility] [address] [id number] [place] [address] 5635 Apr, [facility] [place] [facility] [address] [id number] [place] [address]- 4322 27 Mar, 2011 [facility] [place] [facility] [address] [id number] [place] [address]- 0339 20 Mar, 2011 [facility] [address] [id number] [place] [address]- 4113 14 Mar, 2011 [facility] [place] [facility] [address] [id number] [place] [address]- 0627 11 Mar, 2011 [facility] [place] [facility] [address] [id number] [place] [address]- 8516 10 Mar, 2011 [facility] [place] [facility] [address] [id number] [place] [address]- 6176 10 Mar, 2011 [facility] [place] [facility] [address] [id number] [place] [address]- 4576 10 Mar, 2011 [facility] [place] [facility] [address] [id number] [place] [address]- 9678 11 Jan, 2011 [facility] [place] [facility] [address] [id number] [place] [address]- 8794 27 May, 2010 [facility] [place] [facility] [address] [id number] [place] [address]- 6814 21 May, 2010 [facility] [place] [facility] [address] [id number] [place] [address]- 8857 13 May, 2010 [facility] [place] [facility] [address] [id number] [place] [address]- 3358 13 May, 2010 [facility] [place] [facility] [address] [id number] [place] [address] 3949 May, [facility] [place] [facility] [address] [id number] [place] [address]- 7764 06 May, 2010 [facility] [place] [facility] [address] [id number], [place] [address]- 0[address] 29 Apr, 2010 [facility] [place] [facility] [address] [id number] [place] [address]- 2294 Apr, [facility] [place] [facility] [address] [id number] [place] [address]- 254 Apr, [facility] [place] [facility] [address] [id number] [place] [address] 18 Apr, 2010 [facility] [place] [facility] [address] [id number], [place] [address]- [address] Apr, [facility] [id number], [place] [address] Apr, [facility] [id number], [place] [address] 9893 Apr, [facility] [id number], [place] [address]335 Apr, [facility] [id number] [place] [address] 154789- 1054 Apr, [facility] [id number] [place] [address]- 8172 Apr, [facility] [id number] [place] [address] 805465- 2295 Mar, [facility] [id number] [place] [address]- 7500 Mar, [facility] [address] [id number], [place] [address]- [address]290 Mar, [facility] [id number] [place] [address]- 7767 Mar, [facility] [id number], [place] [address] 2564 Mar, [facility] [id number], [place] [address]- 74[address] Dec, [facility] [id number], [place] [address]- 2251 Nov, IMMUNIZATIONS No Known Immunizations SOCIAL HISTORY Never Assessed REASON FOR VISIT medication refill PLAN OF CARE VITAL SIGNS MEDICATIONS Medication Instructions Dosage Frequency Start Date End Date Duration Status Coumadin 1 MG Orally 1.5mg on Saturday, Saturday and Saturday and 1mg on Sun,Tues ,Thurs and Sat 1 tablet 30 days Active RESULTS No [...] [facility]2016 Hospitalization History [facility] 08/2017 Hospitalization History [facility] 01/2018
--- OUTSIDE RECORDS SUMMARY | 2018-07-05 14:51 | XMS REPORT ---
Author Author NAHOMY BETH Organization [facility] Address [address] [place] [address] Care Team Providers Care Rock Duster Name Role Phone NAHOMY BETH Unavailable PROBLEMS Type Condition ICD9-CM Code PLV30-UO Code Onset Dates Condition Status SNOMED Code Problem Anemia, unspecified type D64.9 Active 539585462 Problem Personality disorder F60.9 Active 11004559 Problem Factitious disorder imposed on self, recurrent episode F68.10 Active 11377168 Problem Ventral hernia without obstruction or gangrene K43.9 Active 655773193 Problem Allergic state, subsequent encounter T78.40XD Active 014549851 Problem Anxiety F41.9 Active 32760804 Problem Age-related osteoporosis without current pathological fracture M81.0 Active 78446397 Problem Unspecified psychosis not due to a substance or known physiological condition F29 Active 62885993 Problem Iron deficiency anemia, unspecified iron deficiency anemia type D50.9 Active 25091179 Problem History of CVA with residual deficit I69.30 Active 722638150 Problem Seizure disorder G40.909 Active 436611901 Problem Perennial allergic rhinitis, unspecified allergic rhinitis trigger J30.89 Active 939033271 Problem Chronic kidney disease, unspecified stage N18.9 Active 070542645 Problem Back pain M54.9 Active 487323167 Problem Gastroesophageal reflux disease without esophagitis K21.9 Active 780052646 Problem Insomnia, unspecified type G47.00 Active 883368662 Problem History of colon polyps Z86.010 Active 945290658 ALLERGIES No Information ENCOUNTERS Encounter Location Date Diagnosis [place] [address] [facility] [id number], [place] [address] Mar, [facility] [address] [facility] [id number], [place] [address] Mar, Back pain M54.9 [facility] [address], [place] [address] 7[address] Mar, Back pain M54.9 and Encounter for immunization Z23 [facility] [id number] [place] [address] 90038- 1546 Feb, [facility] [id number] [place] [address] 60517- 6926 Feb, Unspecified psychosis not due to a substance or known physiological condition F29 ; Personality disorder F60.9 and Factitious disorder imposed on self, recurrent episode F68.10 [facility] [id number] [place] [address] 40609- 3798 Feb, Back pain M54.9 [facility] [id number] [place] [address] 24701- 9055 Jan, Unspecified psychosis not due to a substance or known physiological condition F29 ; Personality disorder F60.9 and Factitious disorder imposed on self, recurrent episode F68.10 [facility] [id number] [place] [address] 17327- 4601 Jan, [facility] [id number] [place] [address] 09055- 8552 Jan, Back pain M54.9 and Seizure disorder G40.909 [facility] [address], [place] [address] 9977 Jan, Back pain M54.9 [facility] [id number] [place] [address] 46703- 4743 Jan, Back pain M54.9 [facility] [id number] [place] [address] 52392- 3280 Jan, [facility] [id number] [place] [address] 26629- 4571 Jan, Unspecified psychosis not due to a substance or known physiological condition F29 ; Personality disorder F60.9 and Factitious disorder imposed on self, recurrent episode F68.10 [facility] [address], [place] [address] 2699 Dec, Back pain M54.9 ; Seizure disorder G40.909 ; Ventral hernia without obstruction or gangrene K43.9 and History of CVA with residual deficit I69.30 [facility] [id number] [place] [address] 58225- 0096 Dec, Unspecified psychosis not due to a substance or known physiological condition F29 ; Personality disorder F60.9 and Factitious disorder imposed on self, recurrent episode F68.10 [place] [address] [place] [address] [id number] [place] [address] 10452- 0189 Dec, [place] [address] [place] [address] [id number] [place] [address] 88914- 9435 Dec, Back pain M54.9 [place] [address] [place] [address] [id number] [place] [address] 90365- 2335 Dec, Factitious disorder imposed on self, recurrent episode F68.10 ; Personality disorder F60.9 ; Insomnia, unspecified type G47.00 and Anxiety F41.9 [place] [address] [address] [id number] [place] [address] 01137- 6729 Nov, Unspecified psychosis not due to a substance or known physiological condition F29 ; Personality disorder F60.9 and Factitious disorder imposed on self, recurrent episode F68.10 [place] [id number] [place] [address] 33904- 0499 Nov, Back pain M54.9 [place] [id number] [place] [address] 69006- 0399 Nov, Unspecified psychosis not due to a substance or known physiological condition F29 ; Personality disorder F60.9 and Factitious disorder imposed on self, recurrent episode F68.10 [place] [id number] [place] [address] 09505- 4373 October, [place] [address] [place] [id number] [place] [address] 57235- 2030 October, [facility] [address] [place] [id number], [place] [address] 7841 October, Unspecified psychosis not due to a substance or known physiological condition F29 ; Personality disorder F60.9 and Factitious disorder imposed on self, recurrent episode F68.10 [facility] [address], [place] [address] 1396 October, Back pain M54.9 [facility] [id number] [place] [address] 69802- 1066 October, Seizure disorder G40.909 ; Back pain M54.9 and Allergic state, subsequent encounter T78.40XD [facility] [address], [place] [address] 4856 October, [facility] [id number] [place] [address] 62805- 4806 Sep, Back pain M54.9 [facility] [id number], [place] [address] 9815 Sep, Unspecified psychosis not due to a substance or known physiological condition F29 ; Personality disorder F60.9 and Factitious disorder imposed on self, recurrent episode F68.10 [facility] [address], [place] [address]- 8331 Sep, [facility] [address] [id number], [place] [address]- 8982 Sep, [facility] [id number], [place] [address]- 7918 Sep, [facility] [id number], [place] [address]- 6636 Sep, [facility] [id number], [place] [address]- 0877 Aug, [facility] [address] [place] [address] [id number] [place] [address] 54983- 0484 Aug, Back pain M54.9 [facility] [address] [address] Aug, Factitious disorder imposed on self, recurrent episode F68.10 ; Personality disorder F60.9 ; Insomnia, unspecified type G47.00 and Anxiety F41.9 [facility] [address] [address] 8348 Aug, Back pain M54.9 ; Iron deficiency anemia, unspecified iron deficiency anemia type D50.9 ; Chronic kidney disease, unspecified stage N18.9 and Breast cancer screening Z12.31 [facility] [id number] [place] [address] [id number] Jul, Back pain M54.9 [facility] [id number] [place] [address] [id number] Jul, [facility] [id number] [place] [address] [id number] Jul, [facility] [id number] [place] [address] [id number] Jun, Back pain M54.9 [facility] [id number] [place] [address] [id number] Jun, [facility] [id number] [place] [address] [id number] Jun, Back pain M54.9 [facility] [address] [place] [address] [id number]- 3206 Jun, Back pain M54.9 ; Seizure disorder G40.909 and Age-related osteoporosis without current pathological fracture M81.0 [facility] [id number] [place] [address] [id number] May, [facility] [address] 6905 May, Back pain M54.9 [facility] [address] [place] [address] 95843- 8259 Apr, Back pain M54.9 ; Encounter for immunization Z23 ; Gastroesophageal reflux disease without esophagitis K21.9 ; Age-related osteoporosis without current pathological fracture M81.0 and Chronic pruritus L29.9 [facility] [address], [place] [address]- 1875 16 Apr, 2017 History of CVA with residual deficit I69.30 [facility] [id number] [place] [address] 85009- 2236 Apr, Factitious disorder imposed on self, recurrent episode F68.10 and Personality disorder F60.9 [facility] [address] [id number] [place] [id number] Apr, Back pain M54.9 [facility] [id number] [place] [address] 45759- 7431 Mar, Factitious disorder imposed on self, recurrent episode F68.10 [facility] [id number] [place] [address] 75871- 4828 Mar, [facility] [id number] [place] [address] [id number] Mar, [facility] [id number] [place] [address] [id number] Mar, Back pain M54.9 [facility] [id number] [place] [address] 13422- 6896 05 Mar, 2017 Back pain M54.9 ; Seizure disorder G40.909 and Age-related osteoporosis without current pathological fracture M81.0 [facility] [address], [place] [address]- 8864 Feb, History of CVA with residual deficit I69.30 [facility] [address] [place] [address] 93292- 2598 Feb, Factitious disorder imposed on self, recurrent episode F68.10 and Personality disorder F60.9 [facility] [id number] [address]- 4315 15 Feb, 2017 Back pain M54.9 [facility] [address], [place] [address]- 6687 06 Feb, 2017 [facility] [address], [place] [address]- 1222 Jan, [facility] [address] [place] [id number] Jan, Age- related osteoporosis without current pathological fracture M81.0 and Allergic state, subsequent encounter T78.40XD [facility] [address], [place] [address]- 4110 Jan, Factitious disorder imposed on self, recurrent episode F68.10 and Personality disorder F60.9 [facility] [address], [place] [address]- 7476 Dec, Back pain M54.9 [facility] [address], [place] [address]- 8342 Dec, Personality disorder F60.9 and Factitious disorder imposed on self, recurrent episode F68.10 [facility] [id number] [id number] Dec, Back pain M54.9 [facility] [id number] [id number] Dec, [facility] [id number] [id number] Dec, [facility] [address], [place] [address]- 5290 Dec, [facility] [address], [place] [address]- 9676 Nov, [facility] [address], [place] [address]- 6350 Nov, Back pain M54.9 ; Anemia, unspecified type D64.9 and History of colon polyps Z86.010 [facility] [address] [facility] [id number], [place] [address]- 4481 Nov, Back pain M54.9 [facility] [address] [id number] [id number] October, Back pain M54.9 [facility] [address] [place] [id number] October, Back pain M54.9 and Gastroesophageal reflux disease without esophagitis K21.9 [facility] [address] [id number] [id number] Sep, [facility] [address] [facility] [id number], [place] [address]- 2756 Sep, [facility] [address] [facility] [id number], [place] [address]- 0046 Sep, [facility] [id number], [place] [address]- 9444 Sep, [facility] [address] [facility] [id number], [place] [address] 2544 Sep, [facility] [address] [facility] [id number], [place] [address]- 2637 Sep, Seizure disorder G40.909 [facility] [address] [facility] [id number], [place] [address]- 9519 Sep, Back pain M54.9 [facility] [address] [facility] [id number], [place] [address] 2546 Sep, [facility] [address] [facility] [id number], [place] [address]- 9623 Aug, Back pain M54.9 [facility] [address] [facility] [id number], [place] [address] 2546 Aug, Seizure disorder G40.909 [facility] [address] [id number][place] [id number] Aug, [facility] [address] [id number] [id number] 16 Aug, 2016 Back pain M54.9 [facility] [id number] [place] [address] [id number] 14 Aug, 2016 Back pain M54.9 [facility] [address] [id number] [id number] 06 Aug, 2016 Back pain M54.9 [facility] [address] [place] [id number] Jul, Weakness R53.1 [facility] [id number] [place] [address] 97956- 9933 Jul, Seizure disorder G40.909 [facility] [address] [place] [address] 75526- 4199 Jul, [facility] [address] [place] [id number] [place] [address] 40733- 8753 Jul, Breast cancer screening Z12.39 [facility] [id number] [place] [address] 75463- 1733 Jul, [facility] [address] [place] [address] 03579- 0311 Jul, [facility] [id number] [place] [address] 06305- 9564 Jul, [facility] [address] [place] [address] 66496- 5084 Jul, Seizure disorder G40.909 ; Fatigue, unspecified type R53.83 ; Perennial allergic rhinitis, unspecified allergic rhinitis trigger J30.89 and Chronic kidney disease, unspecified stage N18.9 [facility] [id number] [place] [address] 77802- 1991 06 Jul, 2016 [facility] [address] [place] [address] 26273- 8775 Jul, Seizure disorder G40.909 [facility] [address] [id number], [place] [address]- 6327 Jun, [facility] [address] [place] [address] 00009- 4874 Jun, [facility] [address] [place] [id number] Jun, Perennial allergic rhinitis, unspecified allergic rhinitis trigger J30.89 [facility] [id number] [place] [address] [id number] Jun, [facility] [id number] [place] [address] 14172- 7563 Jun, Seizure disorder G40.909 [facility] [id number] [place] [address] [id number] Jun, [facility] [id number] [place] [address] [id number] May, [facility] [id number] [place] [address] 13557- 6180 May, [facility] [id number] [place] [address] 14751- 5206 May, [facility] [id number] [place] [address] 01911- 8096 May, [facility] [address], [place] [address]- 0470 May, History of CVA with residual deficit I69.30 [facility] [address], [place] [address]- 8070 May, [facility] [address], [place] [address]- 4164 May, [facility] [id number] [place] [address] 90235- 3824 May, [facility] [address], [place] [address]- 3048 May, Seizure disorder G40.909 [facility] [address] [facility] [id number], [place] [address]- 6502 May, [facility] [address] [place] [address] May, Back pain M54.9 and Seizure disorder G40.909 [facility] [address] [facility] [id number], [place] [address]- 8906 Apr, [facility] [address] [facility] [id number] [place] [address] 32248- 1301 Apr, Back pain M54.9 [facility] [address] [facility] [id number], [place] [address]- 1381 Mar, [facility] [address] [place] [address] Mar, Insomnia, unspecified type G47.00 [facility] [address], [place] [address]- 4239 Mar, [facility] [id number], [place] [address]- 9124 Feb, [facility] [id number] [place] [address] 64798- 3219 Feb, [facility] [id number], [place] [address]- 6844 Feb, [facility] [address], [place] [address]- 8651 Jan, [facility] [address] [facility] [id number], [place] [address]- 7108 Jan, [facility] [address] [place] [address] Jan, Seizure disorder G40.909 and Back pain M54.9 [facility] [address] [facility] [id number], [place] [address]- 9086 Dec, [facility] [id number], [place] [address]- 8513 Dec, [facility] [address], [place] [address]- 7823 Dec, [facility] [id number] [place] [address] 96713- 0341 Nov, [facility] [id number] [place] [address] 57011- 9936 Nov, [facility] [id number] [place] [address] 53847- 3543 Nov, Back pain M54.9 [facility] [id number] [place] [address] 85133- 5678 October, [facility] [id number] [place] [address] 12904- 8972 October, Back pain M54.9 [facility] [id number] [place] [address] 88426- 7139 October, Seizure disorder G40.909 and B12 deficiency E53.8 [facility] [id number] [place] [address] 78667- 9083 Sep, History of CVA with residual deficit I69.30 [facility] [id number] [place] [address] 37467- 6361 Sep, [facility] [id number] [place] [address] 74443- 6414 Sep, [facility] [id number] [place] [address] 49689- 6351 Sep, Back pain M54.9 [facility] [id number] [place] [address] 18955- 0336 Sep, Seizure disorder G40.909 [facility] [id number] [place] [address] 43078- 2546 Aug, Back pain M54.9 [facility] [id number] [place] [address] 57036- 4513 Aug, Seizure disorder G40.909 [facility] [address], [place] [address]- 2946 16 Aug, 2015 Back pain M54.9 [facility] [address], [place] [address] 2546 14 Aug, 2015 Heart failure, unspecified I50.9 [facility] [id number] [place] [address] 82079 2546 14 Aug, 2015 Medication monitoring encounter Z51.81 [facility] [address], [place] [address]- 5566 15 Jul, 2015 [facility] [id number] [place] [address] 53773- 9806 09 Jul, 2015 Seizure disorder G40.909 [facility] [address] [place] [address] 12313- 6376 05 Jul, 2015 Back pain M54.9 [facility] [address], [place] [address]- 5050 Jun, [facility] [id number] [place] [address] 48134- 8814 Jun, [facility] [address], [place] [address]- 5633 Jun, Mental status change R41.82 ; History of CVA with residual deficit I69.30 ; Back pain M54.9 and Seizure disorder G40.909 [facility] [address], [place] [address]- 2286 Jun, [facility] [id number] [place] [address] 06591 2546 May, [facility] [address], [place] [address]- 9566 Apr, [facility] [id number] [place] [address] 86148- 4367 Apr, Medication monitoring encounter Z51.81 [facility] [address] [id number] [place] [address]- 3675 Mar, Vomiting R11.10 [facility] [address] [id number] [place] [address]- 0736 Mar, [facility] [address] [id number] [place] [address]- 2546 Feb, [facility] [address] [id number] [place] [address]- 5286 Feb, UTI (urinary tract infection) 599.0 [facility] [address] [id number] [place] [address]- 8376 Jan, [facility] [address] [id number] [place] [address]- 2546 Jan, [facility] [address] [id number] [place] [address]- 2546 Jan, [facility] [address] [id number] [place] [address]- 0926 Dec, [facility] [address] [id number] [place] [address]- 7996 Dec, [facility] [address] [id number] [place] [address]- 2546 Dec, [facility] [address] [id number] [place] [address]- 2546 Dec, [facility] [address] [id number] [place] [address]- 2546 Nov, UNKNOWN Nov, [facility] [address] [id number] [place] [address] October, [facility] [address] [id number] [place] [address] 14 Sep, 2014 [facility] [address] [id number] [place] [address] Sep, [facility] [place] [facility] [address] [id number] [place] [address] Aug, [facility] [place] [facility] [address] [id number] [place] [address] Aug, [facility] [place] [facility] [address] [id number] [place] [address] Jul, [facility] [place] [facility] [address] [id number] [place] [address] Jul, [facility] [place] [facility] [address] [id number] [place] [address] Jul, [facility] [place] [facility] [address] [id number] [place] [address] Jul, [facility] [place] [facility] [address] [id number] [place] [address] Jul, [facility] [place] [facility] [address] [id number] [place] [address] Jun, [facility] [place] [facility] [address] [id number] [place] [address] Jun, [facility] [place] [facility] [address] [id number] [place] [address] Jun, [facility] [place] [facility] [address] [id number] [place] [address] Jun, [facility] [place] [facility] [address] [address] [id number] [place] [address] Jun, [facility] [place] [facility] [address] [id number] [place] [address] Jun, [facility] [place] [facility] [address] [id number] [place] [address] 5513 Jun, [facility] [place] [facility] [address] [id number] [place] [address] 0458 Jun, [facility] [place] [facility] [address] [id number] [place] [address] 3983 14 Jun, 2014 [facility] [address] [id number] [place] [address] 0493 Jun, [facility] [place] [facility] [address] [id number] [place] [address] 1310 Jun, [facility] [address] [id number] [place] [address] 4876 Jun, [facility] [address] [id number] [place] [address] 1733 Jun, [facility] [address] [id number] [place] [address] 8834 Jun, [facility] [address] [id number] [place] [address] 5227 Jun, [facility] [address] [id number] [place] [address]- 6453 Jun, [facility] [address] [id number] [place] [address]- 1062 Jun, [facility] [address] [id number] [place] [address]- 0974 Jun, [facility] [address] [id number] [place] [address]- 2503 May, [facility] [place] [facility] [address] [id number] [place] [address]- 5056 30 May, 2014 [facility] [place] [facility] [address] [id number] [place] [address]- 8896 May, [facility] [place] [facility] [address] [id number] [place] [address]- 0631 May, [facility] [place] [facility] [address] [id number] [place] [address]- 7266 May, [facility] [place] [facility] [address] [id number] [place] [address]- 1052 May, [facility] [place] [facility] [address] [id number] [place] [address]- 1557 May, [facility] [place] [facility] [address] [id number] [place] [address] 1983 May, [facility] [place] [facility] [address] [id number] [place] [address]- 1193 May, [facility] [address] [facility] [place] [id number] May, [facility] [place] [facility] [address] [id number] [place] [address]- 6783 May, [facility] [place] [facility] [address] [id number] [place] [address]- 0273 May, [facility] [place] [facility] [address] [id number] [place] [address]- 2724 May, [facility] [place] [facility] [address] [id number] [place] [address]- 2674 Apr, [facility] [place] [facility] [address] [id number] [place] [address]- 8204 Apr, [facility] [place] [facility] [address] [id number] [place] [address]- 0875 Apr, [facility] [place] [facility] [address] [id number] [place] [address]- 3999 Apr, [facility] [place] [facility] [address] [id number] [place] [address]- 8180 Apr, [facility] [place] [facility] [address] [id number] [place] [address]- 9157 Apr, [facility] [place] [facility] [address] [id number] [place] [address]- 3553 Mar, [facility] [place] [facility] [address] [id number] [place] [address]- 7733 Mar, [facility] [place] [facility] [address] [id number], [place] [address] 5598 Mar, [facility] [address] [id number] [place] [address]- 4479 Mar, [facility] [place] [facility] [address] [id number] [place] [address]- 1079 Mar, [facility] [place] [facility] [address] [id number] [place] [address]- 1450 Mar, [facility] [place] [facility] [address] [id number], [place] [address]- 7961 24 Feb, 2014 [facility] [place] [facility] [address] [id number] [place] [address]- 7320 24 Feb, 2014 [facility] [place] [facility] [address] [id number] [place] [address]- 0570 Feb, [facility] [place] [facility] [address] [id number] [place] [address]- 0154 Feb, [facility] [place] [facility] [address] [id number], [place] [address]- 5778 Feb, [facility] [place] [facility] [address] [id number], [place] [address]- 0083 Feb, [facility] [place] [facility] [address] [id number], [place] [address]- 2970 Feb, [facility] [place] [facility] [address] [id number], [place] [address]- 1562 Feb, [facility] [place] [facility] [address] [id number], [place] [address]- 6455 Feb, [facility] [place] [facility] [address] [id number], [place] [address] 7453 12 Feb, 2014 [facility] [address] [place] [id number] Feb, [facility] [place] [facility] [address] [id number], [place] [address]- 3071 Feb, [facility] [place] [facility] [address] [id number] [place] [address]- 6122 Jan, [facility] [place] [facility] [address] [id number] [place] [address]- 3221 Jan, [facility] [place] [facility] [address] [id number] [place] [address]- 3587 Dec, [facility] [place] [facility] [address] [id number] [place] [address]- 5234 Dec, [facility] [place] [facility] [address] [id number] [place] [address]- 8578 Dec, [facility] [place] [facility] [address] [id number] [place] [address]- 3576 Dec, [facility] [place] [facility] [address] [id number] [place] [address]- 6654 Dec, [facility] [place] [facility] [address] [id number] [place] [address]- 8824 Dec, [facility] [place] [facility] [address] [id number] [place] [address]- 4830 Dec, [facility] [place] [facility] [address] [id number] [place] [address]- 7025 Dec, [facility] [place] [facility] [address] [id number] [place] [address]- 2529 Dec, [facility] [place] [facility] [address] [id number] [place] [address]- 7087 Dec, [facility] [place] [facility] [address] [id number] [place] [address]- 0902 Nov, [facility] [place] [facility] [address] [id number] [place] [address]- 2046 Nov, [facility] [place] [facility] [address] [id number] [place] [address]- 7685 Nov, [facility] [place] [facility] [address] [id number] [place] [address]- 2087 Nov, [facility] [place] [facility] [address] [id number] [place] [address]- 4132 Nov, [facility] [place] [facility] [address] [id number] [place] [address]- 4095 Nov, [facility] [place] [facility] [address] [id number] [place] [address]- 1950 Nov, [facility] [place] [facility] [address] [id number] [place] [address]- 6417 Nov, [facility] [place] [facility] [address] [id number] [place] [address]- 3659 Nov, [facility] [place] [facility] [address] [id number] [place] [address]- 2009 Nov, [facility] [place] [facility] [address] [id number] [place] [address]- 7707 Nov, [facility] [place] [facility] [address] [id number] [place] [address]- 7388 Nov, [facility] [place] [facility] [address] [id number] [place] [address]- 7243 Nov, [facility] [place] [facility] [address] [id number] [place] [address]- 8507 Nov, [facility] [place] [facility] [address] [id number] [place] [address]- 0168 October, [facility] [place] [facility] [address] [id number] [place] [address]- 3764 October, [facility] [place] [facility] [address] [id number] [place] [address]- 5452 October, [facility] [place] [facility] [address] [id number] [place] [address]- 8730 October, [facility] [place] [facility] [address] [id number] [place] [address]- 3712 October, [facility] [place] [facility] [address] [id number] [place] [address]- 3306 October, [facility] [place] [facility] [address] [id number] [place] [address]- 7498 October, [facility] [place] [facility] [address] [id number] [place] [address]- 9743 October, [facility] [place] [facility] [address] [id number] [place] [address]- 2522 October, [facility] [place] [facility] [address] [id number] [place] [address]- 8840 October, [facility] [place] [facility] [address] [id number] [place] [address]- 0742 Sep, [facility] [place] [facility] [address] [id number] [place] [address]- 0411 Sep, [facility] [place] [facility] [address] [id number] [place] [address]- 8693 Sep, [facility] [place] [facility] [address] [id number] [place] [address]- 5633 Sep, [facility] [place] [facility] [address] [id number] [place] [address]- 1894 Sep, [facility] [place] [facility] [address] [id number] [place] [address]- 4769 Sep, [facility] [place] [facility] [address] [id number] [place] [address]- 3623 Sep, [facility] [place] [facility] [address] [id number] [place] [address]- 7929 Sep, [facility] [place] [facility] [address] [id number] [place] [address]- 7692 Sep, [facility] [place] [facility] [address] [id number] [place] [address]- 1267 Sep, [facility] [place] [facility] [address] [id number] [place] [address]- 8287 Aug, [facility] [place] [facility] [address] [id number] [place] [address]- 2229 Aug, [facility] [place] [facility] [address] [id number] [place] [address]- 8877 Aug, [facility] [place] [facility] [address] [id number] [place] [address]- 1156 Aug, [facility] [place] [facility] [address] [id number] [place] [address]- 0827 Aug, [facility] [place] [facility] [address] [id number] [place] [address]- 7471 Aug, [facility] [place] [facility] [address] [id number] [place] [address]- 9481 Aug, [facility] [place] [facility] [address] [facility] [id number] [place] [address]- 0657 Aug, [facility] [place] [facility] [address] [facility] [id number] [place] [address]- 7628 Aug, [facility] [place] [facility] [address] [id number] [place] [address]- 9695 Jul, [facility] [place] [facility] [address] [id number] [place] [address]- 6586 Jul, [facility] [place] [facility] [address] [facility] [id number] [place] [address]- 7865 Jul, [facility] [place] [facility] [address] [facility] [id number] [place] [address]- 3033 Jul, [facility] [place] [facility] [address] [id number] [place] [address]- 0566 Jul, [facility] [place] [facility] [address] [id number] [place]40 Jul, [facility] [place] [facility] [address] [facility] [id number] [place] [address] 2546 Jul, [facility] [place] [facility] [address] [facility] [id number] [place] [address]- 1133 Jul, [facility] [place] [facility] [address] [id number] [place] [address]- 7119 Jul, [facility] [place] [facility] [address] [id number] [place] [address]- 2556 Jul, [facility] [place] [facility] [address] [facility] [id number] [place] [address]- 9526 Jul, [facility] [place] [facility] [address] [id number] [place] [address]- 3693 Jul, [facility] [place] [facility] [address] [id number] [place] [address]- 4482 Jul, [facility] [place] [facility] [address] [facility] [id number] [place] [address]- 2107 Jul, [facility] [place] [facility] [address] [facility] [id number] [place] [address]- 2771 Jul, [facility] [place] [facility] [address] [facility] [id number] [place] [address]- 6730 Jul, [facility] [place] [facility] [address] [facility] [id number] [place] [address]- 1882 Jun, [facility] [place] [facility] [address] [facility] [id number] [place] [address]- 6306 Jun, [facility] [place] [facility] [address] [facility] [id number] [place] [address]- 6249 Jun, [facility] [place] [facility] [address] [facility] [id number] [place] [address]- 6113 Jun, [facility] [place] [facility] [address] [facility] [id number] [place] [address]- 6290 Jun, [facility] [place] [facility] [address] [facility] [id number] [place] [address]- 1308 Jun, [facility] [place] [facility] [address] [facility] [id number] [place] [address]- 2122 May, [facility] [place] [facility] [address] [id number] [place] [address]- 8742 May, [facility] [place] [facility] [address] [id number] [place] [address]- 4888 May, [facility] [place] [facility] [address] [id number] [place] [address]- 5730 May, [facility] [place] [facility] [address] [id number] [place] [address]- 2951 Apr, [facility] [place] [facility] [address] [id number] [place] [address]- 6195 Apr, [facility] [place] [facility] [address] [id number] [place] [address]- 9963 Apr, [facility] [place] [facility] [address] [id number] [place] [address]- 2997 Apr, [facility] [place] [facility] [address] [id number] [place] [address]- 5270 Apr, [facility] [place] [facility] [address] [id number] [place] [address]- 8340 Apr, [facility] [place] [facility] [address] [id number] [place] [address]- 0302 Apr, [facility] [place] [facility] [address] [id number] [place] [address]- 3449 Apr, [facility] [place] [facility] [address] [id number] [place] [address]- 3396 Apr, [facility] [place] [facility] [address] [id number] [place] [address]- 1540 Apr, [facility] [place] [facility] [address] [id number] [place] [address]- 6631 Apr, [facility] [place] [facility] [address] [id number] [place] [address]- 6608 Apr, [facility] [place] [facility] [address] [id number] [place] [address]- 3823 28 Mar, 2013 [facility] [place] [facility] [address] [id number] [place] [address]- 4555 28 Mar, 2013 [facility] [place] [facility] [address] [id number] [place] [address]- 0756 16 Mar, 2013 [facility] [place] [facility] [address] [id number] [place] [address]- 2556 16 Mar, 2013 [facility] [place] [facility] [address] [id number] [place] [address]- 3576 15 Mar, 2013 [facility] [place] [facility] [address] [id number] [place] [address]- 8838 15 Mar, 2013 [facility] [place] [facility] [address] [id number] [place] [address]- 1086 27 Feb, 2012 [facility] [place] [facility] [address] [id number] [place] [address]- 9394 25 Feb, 2012 [facility] [place] [facility] [address] [id number], [place] [address]- 7060 25 Feb, 2012 [facility] [place] [facility] [address] [id number] [place] [address]- 6580 23 Feb, 2012 [facility] [place] [facility] [address] [id number] [place] [address]- 4386 17 Feb, 2012 [facility] [place] [facility] [address] [id number], [place] [address]- 7281 10 Feb, 2012 [facility] [place] [facility] [address] [id number], [place] [address] 2548 04 Feb, 2012 [facility] [place] [facility] [address] [id number] [place] [address] 2546 30 Jan, 2013 [facility] [place] [facility] [address] [id number], [place] [address]- 6141 20 Jan, 2013 [facility] [place] [facility] [address] [id number] [place] [address]- 2546 15 Jan, 2013 [facility] [place] [facility] [address] [id number] [place] [address]- 5145 Jan, [facility] [place] [facility] [address] [id number] [place] [address]- 4472 Jan, [facility] [place] [facility] [address] [id number] [place]266 Jan, [facility] [place] [facility] [address] [id number] [place] [address]- 2742 Jan, [facility] [place] [facility] [address] [id number] [place] [address]- 8235 Dec, [facility] [place] [facility] [address] [id number] [place] [address]- 1964 Dec, [facility] [place] [facility] [address] [id number] [place] [address]- 5720 Dec, [facility] [place] [facility] [address] [id number] [place] [address]- 8869 Dec, [facility] [place] [facility] [address] [id number] [place] [address]- 0296 Dec, [facility] [place] [facility] [address] [id number] [place] [address]- 2769 Dec, [facility] [place] [facility] [address] [id number] [place] [address]- 9030 Nov, [facility] [place] [facility] [address] [id number] [place] [address]- 4397 Nov, [facility] [place] [facility] [address] [id number] [place] [address]- 6722 Nov, [facility] [place] [facility] [address] [id number] [place] [address]- 0668 Nov, [facility] [place] [facility] [address] [id number] [place] [address]- 4533 October, [facility] [place] [facility] [address] [id number] [place] [address]- 4154 October, [facility] [place] [facility] [address] [id number] [place] [address]- 1809 October, [facility] [address] [id number] [place] [address]- 5233 October, [facility] [address] [id number] [place] [address]- 5549 Sep, [facility] [address] [id number] [place] [address]- 7126 Sep, [facility] [address] [id number] [place] [address]- 8737 Sep, [facility] [address] [id number] [place] [address]- 8949 Sep, [facility] [address] [id number] [place] [address]- 7135 Sep, [facility] [address] [id number] [place] [address]- 1874 Sep, [facility] [address] [id number] [place] [address]- 0556 Sep, [facility] [address] [id number] [place] [address]- 4637 Sep, [facility] [address] [id number] [place] [address]- 4082 Aug, [facility] [address] [id number], [place] [address]- 7908 Aug, [facility] [address] [id number] [place] [address]- 3628 05 Aug, 2012 [facility] [place] [facility] [address] [id number] [place] [address]- 4885 18 Jul, 2012 [facility] [address] [id number], [place] [address]- 6941 Jul, [facility] [address] [id number], [place] [address]- 3118 07 Jul, 2012 [facility] [address] [id number] [place] [address] 06 Jul, 2012 [facility] [place] [facility] [address] [id number] [place] [address] 05 Jul, 2012 [facility] [address] [id number] [place] [address] Jun, [facility] [place] [facility] [address] [id number] [place] [address] Jun, [facility] [address] [id number] [place] [address] Jun, [facility] [address] [id number] [place] [address] May, [facility] [address] [id number] [place] [address] May, [facility] [address] [id number] [place] [address] 133[address] May, [facility] [address] [id number] [place] [address] May, [facility] [address] [facility] [id number] [place] [address] May, [facility] [address] [id number] [place] [address] May, [facility] [place] [facility] [address] [id number] [place] [address] 2548 May, [facility] [place] [facility] [address] [id number] [place] [address]- [address] Apr, [facility] [place] [facility] [address] [id number] [place] [address] Apr, [facility] [place] [facility] [address] [id number] [place] [address]- [address] Apr, [facility] [place] [facility] [address] [id number] [place] [address]- 8184 Apr, [facility] [place] [facility] [address] [id number] [place] [address]- 1151 Apr, [facility] [place] [facility] [address] [id number] [place] [address] 8696 Apr, [facility] [place] [facility] [address] [id number] [place] [address]- 98[address] Apr, [facility] [place] [facility] [address] [id number] [place] [address]- 1189 Apr, [facility] [place] [facility] [address] [id number] [place] [address]- [address] Apr, [facility] [place] [facility] [address] [id number] [place] [address]- [address] Apr, [facility] [place] [facility] [address] [id number] [place] [address]- 0925 Apr, [facility] [place] [facility] [address] [id number] [place] [address] Mar, [facility] [place] [facility] [address] [id number] [place] [address]- 8214 Mar, [facility] [place] [facility] [address] [id number] [place] [address] Mar, [facility] [place] [facility] [address] [id number] [place] [address]- [address]286 Mar, [facility] [place] [facility] [address] [id number] [place] [address]- 6673 Mar, [facility] [place] [facility] [address] [id number] [place] [address]- 4184 Mar, [facility] [place] [facility] [address] [id number] [place] [address]- 8936 Mar, [facility] [place] [facility] [address] [id number] [place] [address]- [address]83 19 Mar, 2012 [facility] [place] [facility] [address] [id number] [place] [address]- 4835 16 Mar, 2012 [facility] [place] [facility] [address] [id number] [place] [address]- 2776 16 Mar, 2012 [facility] [place] [facility] [address] [facility] [id number] [place] [address]- 7706 04 Mar, 2012 [facility] [place] [facility] [address] [id number] [place] [address]- [address] 2011 [facility] [place] [facility] [address] [id number] [place] [address]- [address]70 27 Sep, 2011 [facility] [place] [facility] [address] [id number] [place] [address] 27 Feb, 2011 [facility] [place] [facility] [address] [id number] [place] [address]- 4540 26 Feb, 2011 [facility] [place] [facility] [address] [id number] [place] [address]- 1124 24 Feb, 2011 [facility] [place] [facility] [address] [id number] [place] [address]- 2945 19 Feb, 2012 [facility] [place] [facility] [address] [id number] [place] [address]- [address]77 18 Feb, 2012 [facility] [place] [facility] [address] [id number], [place] [address] 18 Feb, 2012 [facility] [place] [facility] [address] [id number], [place] [address]- [address] 18 Feb, 2012 [facility] [place] [facility] [address] [id number] [place] [address]- 1418 30 Jan, 2012 [facility] [place] [facility] [address] [facility] [id number] [place] [address]- 0923 Jan, [facility] [place] [facility] [address] [facility] [id number] [place] [address]- 9332 Jan, [facility] [place] [facility] [address] [id number] [place] [address]- 1178 Jan, [facility] [address] [id number] [place] [address]- 8441 Dec, [facility] [place] [facility] [address] [id number] [place] [address]- 1116 Dec, [facility] [address] [id number] [place] [address]- 6639 Dec, [facility] [place] [facility] [address] [id number] [place] [address] Dec, [facility] [address] [id number] [place] [address]- 2472 Dec, [facility] [address] [id number] [place] [address]- 9838 Dec, [facility] [address] [id number] [place] [address]- 1478 Dec, [facility] [address] [id number] [place] [address]- 5589 Dec, [facility] [place] [facility] [address] [id number] [place] [address]- 5232 Dec, [facility] [address] [id number] [place] [address] 8906 Dec, [facility] [place] [facility] [address] [id number] [place] [address]- 9319 Dec, [facility] [place] [facility] [address] [id number] [place] [address]- 8011 Dec, [facility] [place] [facility] [address] [id number] [place] [address]- 0961 Dec, [facility] [place] [facility] [address] [id number] [place] [address]- 0106 Dec, [facility] [place] [facility] [address] [id number] [place] [address]- 2598 Nov, [facility] [place] [facility] [address] [id number] [place] [address]- 7099 14 Nov, 2011 [facility] [place] [facility] [address] [id number] [place] [address]- 2391 11 Nov, 2011 [facility] [place] [facility] [address] [id number] [place] [address]- 1371 07 Nov, 2011 [facility] [place] [facility] [address] [id number] [place] [address]- 8984 07 Nov, 2011 [facility] [address] [id number] [place] [address]- 3599 07 Nov, 2011 [facility] [place] [facility] [address] [id number] [place] [address]- 5071 30 Oct, 2011 [facility] [place] [facility] [address] [id number] [place] [address]- 0550 October, [facility] [place] [facility] [address] [id number] [place] [address] October, [facility] [place] [facility] [address] [id number] [place] [address] October, [facility] [place] [facility] [address] [id number] [place] [address] 19 Sep, 2011 [facility] [place] [facility] [address] [id number] [place] [address] 17 Sep, 2011 [facility] [place] [facility] [address] [id number] [place] [address] 13 Sep, 2011 [facility] [place] [facility] [address] [id number] [place] [address] 09 Sep, 2011 [facility] [place] [facility] [address] [id number] [place] [address] 03 Sep, 2011 [facility] [place] [facility] [address] [id number] [place] [address] Aug, [facility] [place] [facility] [address] [id number], [place] [address] 26 Aug, 2011 [facility] [address] [id number] [place] [address] Aug, [facility] [address] [id number], [place] [address] 20 Aug, 2011 [facility] [address] [facility] [id number] [place] [address] 13 Aug, 2011 [facility] [address] [id number] [place] [address] 139[address] 02 Aug, 2011 [facility] [address] [id number] [place] [address] Aug, [facility] [address] [id number] [place] [address] 16 Jul, 2011 [facility] [address] [facility] [id number], [place] [address] 16 Jul, 2011 [facility] [address] [facility] [id number] [place] [address] 15 Jul, 2011 [facility] [address] [facility] [id number], [place] [address] 15 Jul, 2011 [facility] [address] [facility] [id number], [place] [address] 24 Jun, 2011 [facility] [address] [id number] Jun, [facility] [address] [id number], [place] [address] 18 Jun, 2011 [facility] [place] [facility] [address] [id number], [place] [address] Jun, [facility] [place] [facility] [address] [facility] [id number], [place] [address] Jun, [facility] [place] [facility] [address] [facility] [id number], [place] [address] Jun, [facility] [address] [id number] [place] [address] 57[address] Jun, [facility] [address] [id number] [place] [address] 1496 Jun, [facility] [address] [id number] [place] [address]473 May, [facility] [address] [id number] [place] [address] May, [facility] [address] [id number] [place] [address] May, [facility] [address] [id number] [place] [address]82 May, [facility] [address] [id number] [place] [address]- 0786 May, [facility] [address] [id number] [place] [address] May, [facility] [address] [id number] [place] [address] 278[address] May, [facility] [address] [id number] [place] [address] Apr, [facility] [address] [id number] [place] [address] 9159 Apr, [facility] [address] [id number] [place] [address] 7505 Apr, [facility] [place] [facility] [address] [id number] [place] [address] 7974 Mar, [facility] [place] [facility] [address] [id number] [place] [address]33 20 Mar, 2011 [facility] [place] [facility] [address] [id number] [place] [address] 3543 14 Mar, 2011 [facility] [place] [facility] [address] [id number] [place] [address] 1660 11 Mar, 2011 [facility] [place] [facility] [address] [id number] [place] [address] 7262 10 Mar, 2011 [facility] [place] [facility] [address] [id number] [place] [address] 6396 10 Mar, 2011 [facility] [place] [facility] [address] [id number] [place] [address]- 8570 10 Mar, 2011 [facility] [place] [facility] [address] [id number] [place] [address]- 5651 11 Jan, 2011 [facility] [place] [facility] [address] [id number] [place] [address]- 9893 27 May, 2010 [facility] [place] [facility] [address] [id number] [place] [address]- 8436 21 May, 2010 [facility] [place] [facility] [address] [id number] [place] [address] 0184 13 May, 2010 [facility] [place] [facility] [address] [id number] [place] [address]- 4655 13 May, 2010 [facility] [place] [facility] [address] [id number] [place] [address]- 8208 May, [facility] [place] [facility] [address] [id number] [place] [address]- 8159 06 May, 2010 [facility] [place] [facility] [address] [id number] [place] [address]- 0744 29 Apr, 2010 [facility] [place] [facility] [address] [id number], [place] [address] 6[address] 26 Apr, 2010 [facility] [place] [facility] [address] [id number] [place] [address] 1361 19 Apr, 2010 [facility] [place] [facility] [address] [id number] [place] [address]- 9057 18 Apr, 2010 [facility] [place] [facility] [address] [id number] [place] [address] 1979 15 Apr, 2010 [facility] [place] [facility] [address] [id number], [place] [address] Apr, [facility] [id number], [place] [address] Apr, [facility] [id number], [place] [address] Apr, [facility] [id number], [place] [address] Apr, [facility] [id number] [place] [address] Apr, [facility] [id number] [place] [address]641 Mar, [facility] [id number] [place] [address]- 7716 Mar, [facility] [id number] [place] [address]- 0390 Mar, [facility] [id number] [place] [address]- 7814 Mar, [facility] [id number] [place] [address]- 7856 Mar, [facility] [id number], [place] [address] Dec, [facility] [id number], [place] [address] Nov, IMMUNIZATIONS No Known Immunizations SOCIAL HISTORY Never Assessed REASON FOR VISIT Controlled Med Refill PLAN OF CARE VITAL SIGNS MEDICATIONS Medication Instructions Dosage Frequency Start Date End Date Duration Status Fentanyl 75 MCG/HR Transdermal every 72 hours 1 patch to skin Mar, Apr, 30 days Active RESULTS No Results [...] skin graft, cholecysectomy Hospitalization [place] [facility] [place] [facility] [facility] 01/2018
--- OUTSIDE RECORDS SUMMARY | 2018-07-05 14:52 | XMS REPORT ---
Author Author NAHOMY BETH Organization [facility] Address [address] [place] [address] Care Team Providers Care Resident Services Manager Name Role Phone NAHOMY BETH Unavailable PROBLEMS Type Condition ICD9-CM Code [id number] Code Onset Dates Condition Status SNOMED Code Problem Anemia, unspecified type D64.9 Active 925317934 Problem Personality disorder F60.9 Active 17617910 Problem Factitious disorder imposed on self, recurrent episode F68.10 Active 04441540 Problem Ventral hernia without obstruction or gangrene K43.9 Active 954648000 Problem Allergic state, subsequent encounter T78.40XD Active 741311676 Problem Anxiety F41.9 Active 11933488 Problem Age-related osteoporosis without current pathological fracture M81.0 Active 16417497 Problem Unspecified psychosis not due to a substance or known physiological condition F29 Active 48560306 Problem Iron deficiency anemia, unspecified iron deficiency anemia type D50.9 Active 58911302 Problem History of CVA with residual deficit I69.30 Active 102281618 Problem Seizure disorder G40.909 Active 333373231 Problem Perennial allergic rhinitis, unspecified allergic rhinitis trigger J30.89 Active 345729365 Problem Chronic kidney disease, unspecified stage N18.9 Active 605630086 Problem Back pain M54.9 Active 191546520 Problem Gastroesophageal reflux disease without esophagitis K21.9 Active 402173676 Problem Insomnia, unspecified type G47.00 Active 866901202 Problem History of colon polyps Z86.010 Active 469289014 ALLERGIES No Information ENCOUNTERS Encounter Location Date Diagnosis [place] [address] [facility] [id number] [address] Mar, [facility] [address] [facility] [id number] [address] 89[address] Mar, Back pain M54.9 [facility] [id number] [place] [address] 59290- 9746 Mar, Back pain M54.9 ; History of CVA with residual deficit I69.30 ; Seizure disorder G40.909 and Encounter for immunization Z23 [facility] [id number] [place] [address] 39703- 2340 Feb, [facility] [id number] [place] [address] 56140- 8560 Feb, Unspecified psychosis not due to a substance or known physiological condition F29 ; Personality disorder F60.9 and Factitious disorder imposed on self, recurrent episode F68.10 [facility] [id number] [place] [address] 03168- 9382 Feb, Back pain M54.9 [facility] [id number] [place] [address] 33377- 2775 Jan, Unspecified psychosis not due to a substance or known physiological condition F29 ; Personality disorder F60.9 and Factitious disorder imposed on self, recurrent episode F68.10 [facility] [id number] [place] [address] 19091- 1317 Jan, [facility] [id number] [place] [address] 35275- 5279 Jan, Back pain M54.9 and Seizure disorder G40.909 [facility] [id number] [place] [address] 46609- 5336 Jan, Back pain M54.9 [facility] [id number] [place] [address] 39557- 3552 Jan, Back pain M54.9 [facility] [id number] [place] [address] 66877- 9632 Jan, [facility] [id number] [place] [address] 28716- 8091 Jan, Unspecified psychosis not due to a substance or known physiological condition F29 ; Personality disorder F60.9 and Factitious disorder imposed on self, recurrent episode F68.10 [place] [address] [address] [id number] [place] [address] 71462- 3420 Dec, Back pain M54.9 ; Seizure disorder G40.909 ; Ventral hernia without obstruction or gangrene K43.9 and History of CVA with residual deficit I69.30 [place] [id number] [place] [address] 24987- 9984 Dec, Unspecified psychosis not due to a substance or known physiological condition F29 ; Personality disorder F60.9 and Factitious disorder imposed on self, recurrent episode F68.10 [place] [id number] [place] [address] 91735- 2542 Dec, [place] [id number] [place] [address] 75601- 3558 Dec, Back pain M54.9 [place] [id number] [place] [address] 56036- 7226 Dec, Factitious disorder imposed on self, recurrent episode F68.10 ; Personality disorder F60.9 ; Insomnia, unspecified type G47.00 and Anxiety F41.9 [place] [id number] [place] [address] 39225- 4725 Nov, Unspecified psychosis not due to a substance or known physiological condition F29 ; Personality disorder F60.9 and Factitious disorder imposed on self, recurrent episode F68.10 [place] [id number] [place] [address] 72330- 1472 Nov, Back pain M54.9 [place] [id number] [place] [address] 44386- 5303 Nov, Unspecified psychosis not due to a substance or known physiological condition F29 ; Personality disorder F60.9 and Factitious disorder imposed on self, recurrent episode F68.10 [place] [id number] [place] [address] 39735- 8794 October, [facility] [id number] [place] [address] 85842- 5165 October, [facility] [id number] [place] [address] 58336- 2529 October, Unspecified psychosis not due to a substance or known physiological condition F29 ; Personality disorder F60.9 and Factitious disorder imposed on self, recurrent episode F68.10 [facility] [id number] [place] [address] 58226- 0426 October, Back pain M54.9 [facility] [id number] [place] [address] 00751- 0875 October, Seizure disorder G40.909 ; Back pain M54.9 and Allergic state, subsequent encounter T78.40XD [facility] [id number] [place] [address] 96371- 4528 October, [facility] [id number] [place] [address] 97753- 6938 Sep, Back pain M54.9 [facility] [id number] [place] [address] 19497- 4885 Sep, Unspecified psychosis not due to a substance or known physiological condition F29 ; Personality disorder F60.9 and Factitious disorder imposed on self, recurrent episode F68.10 [facility] [address] [address]- 7702 Sep, [facility] [id number] [place] [address] 56888- 3112 Sep, [facility] [id number] [place] [address] 29952- 9344 Sep, [facility] [id number] [place] [address] 04680- 8416 Sep, [facility] [address] [address]- 9908 Aug, [facility] [address] [address] 7181 Aug, Back pain M54.9 [facility] [id number] [place] [address] 47841- 9666 15 Aug, 2017 Factitious disorder imposed on self, recurrent episode F68.10 ; Personality disorder F60.9 ; Insomnia, unspecified type G47.00 and Anxiety F41.9 [facility] [address] [address] 08 Aug, 2017 Back pain M54.9 ; Iron deficiency anemia, unspecified iron deficiency anemia type D50.9 ; Chronic kidney disease, unspecified stage N18.9 and Breast cancer screening Z12.31 [facility] [address] [id number] [id number] Jul, Back pain M54.9 [facility] [id number] [place] [address] [id number] Jul, [facility] [id number] [place] [address] [id number] Jul, [facility] [id number] [place] [address] [id number] Jun, Back pain M54.9 [facility] [id number] [id number] Jun, [facility] [id number] [place] [address] [id number] Jun, Back pain M54.9 [facility] [id number] [address] [address]13 Jun, Back pain M54.9 ; Seizure disorder G40.909 and Age-related osteoporosis without current pathological fracture M81.0 [facility] [id number] [id number] May, [facility] [id number] [address] [address]12 May, Back pain M54.9 [facility] [address] [address]- 2194 Apr, Back pain M54.9 ; Encounter for immunization Z23 ; Gastroesophageal reflux disease without esophagitis K21.9 ; Age-related osteoporosis without current pathological fracture M81.0 and Chronic pruritus L29.9 [facility] [id number] [address]- 3789 16 Apr, 2017 History of CVA with residual deficit I69.30 [facility] [id number] [place] [address] 76608- 3360 Apr, Factitious disorder imposed on self, recurrent episode F68.10 and Personality disorder F60.9 [facility] [id number] [place] [address] [id number] Apr, Back pain M54.9 [facility] [id number] [place] [address] 19198- 6211 Mar, Factitious disorder imposed on self, recurrent episode F68.10 [facility] [address], [place] [address]- 9563 Mar, [facility] [id number] [place] [address] [id number] Mar, [facility] [id number] [place] [address] [id number] Mar, Back pain M54.9 [facility] [id number] [place] [address] 40462- 1568 05 Mar, 2017 Back pain M54.9 ; Seizure disorder G40.909 and Age-related osteoporosis without current pathological fracture M81.0 [facility] [id number] [place] [address] 41221- 6528 Feb, History of CVA with residual deficit I69.30 [facility] [address], [place] [address]- 1055 Feb, Factitious disorder imposed on self, recurrent episode F68.10 and Personality disorder F60.9 [facility] [id number] [address]- 4771 15 Feb, 2017 Back pain M54.9 [facility] [address], [place] [address]- 5612 06 Feb, 2017 [facility] [address], [place] [address]- 3045 Jan, [facility] [address] [place] [id number] Jan, Age- related osteoporosis without current pathological fracture M81.0 and Allergic state, subsequent encounter T78.40XD [facility] [id number] [place] [address] 23686- 9610 Jan, Factitious disorder imposed on self, recurrent episode F68.10 and Personality disorder F60.9 [facility] [address], [place] [address]- 6832 Dec, Back pain M54.9 [facility] [address] [place] [address] 36540- 1778 Dec, Personality disorder F60.9 and Factitious disorder imposed on self, recurrent episode F68.10 [facility] [id number] [id number] Dec, Back pain M54.9 [facility] [id number] [id number] Dec, [facility] [id number] [place] [address] [id number] Dec, [facility] [address], [place] [address]- 2854 Dec, [facility] [id number] [place] [address] 24241- 4681 Nov, [facility] [address], [place] [address]- 0489 16 Jacob, 2017 Back pain M54.9 ; Anemia, unspecified type D64.9 and History of colon polyps Z86.010 [facility] [address], [place] [address]- 6105 Nov, Back pain M54.9 [facility] [id number] [place] [address] [id number] October, Back pain M54.9 [facility] [place] [address] [place] [id number] October, Back pain M54.9 and Gastroesophageal reflux disease without esophagitis K21.9 [facility] [id number] [place] [address] [id number] Sep, [facility] [id number] [place] [address] 00830- 3263 Sep, [facility] [id number] [place] [address] 51702- 5805 Sep, [facility] [id number] [place] [address] 89827- 0124 Sep, [facility] [id number] [place] [address] 83747- 7240 Sep, [facility] [id number] [place] [address] 90664- 8225 Sep, Seizure disorder G40.909 [facility] [address] [place] [address] 32289- 0822 Sep, Back pain M54.9 [facility] [id number] [place] [address] 61437- 8061 Sep, [facility] [id number] [place] [address] 69348- 5972 Aug, Back pain M54.9 [facility] [address] [place] [address] 06864- 6802 Aug, Seizure disorder G40.909 [facility] [id number] [place] [address] [id number] 17 Aug, 2016 [facility] [id number] [id number] 16 Aug, 2016 Back pain M54.9 [facility] [address] [id number] [id number] 14 Aug, 2016 Back pain M54.9 [facility] [address] [id number] [id number] 06 Aug, 2016 Back pain M54.9 [facility] [address] [place] [id number] Jul, Weakness R53.1 [facility] [id number] [place] [address] 29628- 9734 Jul, Seizure disorder G40.909 [facility] [id number] [place] [address] 63916- 2359 Jul, [facility] [id number] [place] [address] 70670- 3785 Jul, Breast cancer screening Z12.39 [facility] [id number] [place] [address] 27405- 4032 Jul, [facility] [address] [place] [address] 85504- 7576 Jul, [facility] [address] [place] [address] 08140- 1256 Jul, [facility] [address] [place] [address] 78726- 6881 Jul, Seizure disorder G40.909 ; Fatigue, unspecified type R53.83 ; Perennial allergic rhinitis, unspecified allergic rhinitis trigger J30.89 and Chronic kidney disease, unspecified stage N18.9 [facility] [address] [place] [address] 99419- 5233 Jul, [facility] [address] [place] [address] 27589- 9726 Jul, Seizure disorder G40.909 [facility] [address], [place] [address]- 0364 Jun, [facility] [address] [place] [address] 73500- 9236 Jun, [address] [id number] Jun, Perennial allergic rhinitis, unspecified allergic rhinitis trigger J30.89 [facility] [id number] [place] [address] [id number] Jun, [facility] [address] [place] [address] 38046- 6794 Jun, Seizure disorder G40.909 [facility] [id number] [place] [address] [id number] Jun, [facility] [id number] [place] [address] [id number] May, [facility] [address], [place] [address]- 4400 May, [facility] [id number] [place] [address] 73583- 2298 May, [facility] [address], [place] [address]- 8481 May, [facility] [address] [place] [address] 00251- 7924 May, History of CVA with residual deficit I69.30 [facility] [address], [place] [address]- 4660 May, [facility] [id number] [place] [address] 13442- 6880 May, [facility] [address], [place] [address]- 5988 May, [facility] [address] [place] [address] 10487- 9991 May, Seizure disorder G40.909 [facility] [address] [facility] [id number], [place] [address]- 5782 May, [facility] [address] [place] [address] May, Back pain M54.9 and Seizure disorder G40.909 [facility] [address] [facility] [id number] [place] [address] 91608- 6745 Apr, [facility] [address] [facility] [id number] [place] [address] 44600- 5440 Apr, Back pain M54.9 [facility] [address] [facility] [id number] [place] [address] 50133- 2555 Mar, [facility] [address] [place] [address] Mar, Insomnia, unspecified type G47.00 [facility] [address] [facility] [id number] [place] [address] 59109- 2112 Mar, [facility] [address] [facility] [id number] [place] [address] 05798- 8521 Feb, [facility] [id number] [place] [address] 08703- 9449 Feb, [facility] [id number], [place] [address]- 6835 Feb, [facility] [address] [facility] [id number] [place] [address] 00359- 4504 Jan, [facility] [address] [facility] [id number], [place] [address]- 5632 Jan, [facility] [address] [place] [address] Jan, Seizure disorder G40.909 and Back pain M54.9 [facility] [address] [facility] [id number] [address]- 7511 Dec, [facility] [id number], [place] [address]- 0057 Dec, [facility] [id number] [place] [address] 53151- 7384 Dec, [facility] [id number] [place] [address] 32156- 7219 Nov, [facility] [id number] [place] [address] 72375- 9768 Nov, [facility] [id number] [place] [address] 43654 2543 Nov, Back pain M54.9 [facility] [id number] [place] [address] 55853- 8133 October, [facility] [id number] [place] [address] 95255- 4842 October, Back pain M54.9 [facility] [id number] [place] [address] 74016- 5534 October, Seizure disorder G40.909 and B12 deficiency E53.8 [facility] [id number] [place] [address] 47441- 8024 Sep, History of CVA with residual deficit I69.30 [facility] [address], [place] [address]- 2362 Sep, [facility] [id number] [place] [address] 30009- 1953 Sep, [facility] [id number] [place] [address] 86085- 5436 Sep, Back pain M54.9 [facility] [id number] [place] [address] 13081- 1292 Sep, Seizure disorder G40.909 [facility] [id number] [place] [address] 14301- 2726 Aug, Back pain M54.9 [facility] [id number] [place] [address] 52260- 0927 18 Aug, 2015 Seizure disorder G40.909 [facility] [id number] [place] [address] 15054- 9558 16 Aug, 2015 Back pain M54.9 [facility] [id number] [place] [address] 68897- 1366 14 Aug, 2015 Heart failure, unspecified I50.9 [facility] [id number] [place] [address] [phone]- 8445 14 Aug, 2015 Medication monitoring encounter Z51.81 [facility] [id number] [place] [address] [phone]- 0851 15 Jul, 2015 [facility] [id number] [place] [address] 74301- 1281 09 Jul, 2015 Seizure disorder G40.909 [facility] [id number] [place] [address] 62550- [phone] 05 Jul, 2015 Back pain M54.9 [facility] [id number] [place] [address] [phone]- [phone] Jun, [facility] [id number] [place] [address] 38821- [phone] Jun, [facility] [id number] [place] [address] [phone]- [phone] Jun, Mental status change R41.82 ; History of CVA with residual deficit I69.30 ; Back pain M54.9 and Seizure disorder G40.909 [facility] [address] [id number] [address] Jun, [facility] [id number] [place] [address] [phone]- [phone] May, [facility] [id number] [place] [address] [phone]- [phone] Apr, [facility] [address] [id number] [address] Apr, Medication monitoring encounter Z51.81 [facility] [address] [id number] [place] [address] Mar, Vomiting R11.10 [facility] [address] [id number] [place] [address] 2546 Mar, [facility] [address] [id number], [place] [address] Feb, [facility] [address] [id number], [place] [address] Feb, UTI (urinary tract infection) 599.0 [facility] [address] [id number], [place] [address] Jan, [facility] [address] [id number], [place] [address] Jan, [facility] [address] [id number], [place] [address] Jan, [facility] [address] [id number], [place] [address]- 6526 Dec, [facility] [address] [id number], [place] [address] Dec, [facility] [address] [id number], [place] [address] Dec, [facility] [address] [id number], [place] [address] Dec, [facility] [address] [id number] [place] [address] Nov, UNKNOWN Nov, [facility] [address] [id number] [place] [address] October, [facility] [address] [id number] [place] [address]- [address] Sep, [facility] [place] [facility] [address] [id number] [place] [address]- 4[address] Sep, [facility] [place] [facility] [address] [id number] [place] [address]- 5753 Aug, [facility] [place] [facility] [address] [id number] [place] [address]- 7101 Aug, [facility] [place] [facility] [address] [id number] [place] [address]- 6441 Jul, [facility] [place] [facility] [address] [id number] [place] [address]- 4503 Jul, [facility] [place] [facility] [address] [id number] [place] [address]- 7253 Jul, [facility] [place] [facility] [address] [id number] [place] [address]- 2494 Jul, [facility] [place] [facility] [address] [id number] [place] [address]- 8319 Jul, [facility] [place] [facility] [address] [id number] [place] [address]- 3777 Jun, [facility] [place] [facility] [address] [id number] [place] [address]- 4022 Jun, [facility] [place] [facility] [address] [id number] [place] [address]- 4619 Jun, [facility] [place] [facility] [address] [id number] [place] [address]- 2770 Jun, [facility] [place] [facility] [address] [id number] [place] [address]- 6020 Jun, [facility] [place] [facility] [address] [id number] [place] [address]- 8208 Jun, [facility] [place] [facility] [address] [id number] [place] [address]- 0105 Jun, [facility] [place] [facility] [address] [id number] [place] [address]- 5480 Jun, [facility] [place] [facility] [address] [id number] [place] [address]- 6962 Jun, [facility] [place] [facility] [address] [id number] [place] [address]- 7446 Jun, [facility] [place] [facility] [address] [id number] [place] [address]- 4320 Jun, [facility] [place] [facility] [address] [id number] [place] [address]- 7556 Jun, [facility] [place] [facility] [address] [id number] [place] [address]- 5713 Jun, [facility] [place] [facility] [address] [id number] [place] [address]- 8688 Jun, [facility] [place] [facility] [address] [id number] [place] [address]- 9275 Jun, [facility] [place] [facility] [address] [id number] [place] [address]- 8462 Jun, [facility] [place] [facility] [address] [id number] [place] [address]- 8865 Jun, [facility] [place] [facility] [address] [id number] [place] [address]- 2368 Jun, [facility] [place] [facility] [address] [id number] [place] [address]- 5327 May, [facility] [place] [facility] [address] [id number] [place] [address]- 3717 May, [facility] [place] [facility] [address] [id number] [place] [address]- 5000 May, [facility] [place] [facility] [address] [id number] [place] [address]- 8351 May, [facility] [place] [facility] [address] [id number] [place] [address]- 7361 May, [facility] [place] [facility] [address] [id number] [place] [address]- 7605 May, [facility] [address] [id number] [place] [address]- 1568 May, [facility] [address] [id number] [place] [address]- 4789 May, [facility] [address] [id number] [place] [address]- 7244 May, [facility] [address] [id number] May, [facility] [address] [id number] [place] [address]- 8147 May, [facility] [address] [id number] [place] [address]- 2415 May, [facility] [address] [id number] [place] [address]- 4192 May, [facility] [address] [id number] [place] [address]- 6096 Apr, [facility] [address] [id number] [place] [address]- 6633 Apr, [facility] [address] [id number] [place] [address]- 2445 Apr, [facility] [address] [id number] [place] [address]- 4753 Apr, [facility] [place] [facility] [address] [id number] [place] [address]- 1188 Apr, [facility] [place] [facility] [address] [id number] [place] [address]- 4860 Apr, [facility] [place] [facility] [address] [id number] [place] [address]- 4380 Mar, [facility] [place] [facility] [address] [id number] [place] [address]- 9751 Mar, [facility] [place] [facility] [address] [id number] [place] [address]- 4873 Mar, [facility] [place] [facility] [address] [id number] [place] [address]- 7053 Mar, [facility] [place] [facility] [address] [id number] [place] [address]- 8471 Mar, [facility] [place] [facility] [address] [id number] [place] [address]- 1139 Mar, [facility] [place] [facility] [address] [id number] [place] [address]- 5656 Feb, [facility] [place] [facility] [address] [id number] [place] [address]- 9774 Feb, [facility] [place] [facility] [address] [id number] [place] [address]- 9364 Feb, [facility] [place] [facility] [address] [id number] [place] [address]- 9115 Feb, [facility] [place] [facility] [address] [id number] [place] [address]- 7311 Feb, [facility] [place] [facility] [address] [id number] [place] [address]- 4163 Feb, [facility] [place] [facility] [address] [id number] [place] [address]- 2548 Feb, [facility] [place] [facility] [address] [id number] [place] [address]- 2545 Feb, [facility] [place] [facility] [address] [id number] [place] [address]- 2542 Feb, [facility] [place] [facility] [address] [id number] [place] [address]- 2547 Feb, [facility] [address] [id number] Feb, [facility] [place] [facility] [address] [id number] [place] [address]- 2547 Feb, [facility] [place] [facility] [address] [id number] [place] [address]- 1448 Jan, [facility] [place] [facility] [address] [id number] [place] [address]- 3157 Jan, [facility] [place] [facility] [address] [id number] [place] [address]- 5832 Dec, [facility] [place] [facility] [address] [id number] [place] [address]- 1133 Dec, [facility] [place] [facility] [address] [id number] [place] [address]- 3306 Dec, [facility] [place] [facility] [address] [id number] [place] [address]- 8938 Dec, [facility] [place] [facility] [address] [id number] [place] [address]- 1916 Dec, [facility] [place] [facility] [address] [id number] [place] [address]- 1792 Dec, [facility] [place] [facility] [address] [id number] [place] [address]- 5222 Dec, [facility] [place] [facility] [address] [id number] [place] [address]- 6099 Dec, [facility] [place] [facility] [address] [id number] [place] [address]- 0686 Dec, [facility] [place] [facility] [address] [id number] [place] [address]- 2509 Dec, [facility] [place] [facility] [address] [id number] [place] [address]- 6883 Nov, [facility] [place] [facility] [address] [id number] [place] [address]- 0079 Nov, [facility] [place] [facility] [address] [id number] [place] [address]- 0107 Nov, [facility] [place] [facility] [address] [id number] [place] [address]- 2962 Nov, [facility] [place] [facility] [address] [id number] [place] [address]- 7629 Nov, [facility] [place] [facility] [address] [id number] [place] [address]- 1876 Nov, [facility] [place] [facility] [address] [id number] [place] [address]- 2219 Nov, [facility] [place] [facility] [address] [id number] [place] [address]- 2504 Nov, [facility] [place] [facility] [address] [id number] [place] [address]- 5817 Nov, [facility] [place] [facility] [address] [id number] [place] [address]- 6463 Nov, [facility] [place] [facility] [address] [id number] [place] [address]- 0138 Nov, [facility] [place] [facility] [address] [id number] [place] [address]- 8340 Nov, [facility] [place] [facility] [address] [id number] [place] [address]- 9542 Nov, [facility] [place] [facility] [address] [id number] [place] [address]- 6076 Nov, [facility] [place] [facility] [address] [id number] [place] [address]- 6359 October, [facility] [place] [facility] [address] [id number] [place] [address]- 4795 October, [facility] [place] [facility] [address] [id number] [place] [address]- 6158 October, [facility] [place] [facility] [address] [id number] [place] [address]- 0253 October, [facility] [place] [facility] [address] [id number] [place] [address]- 5271 October, [facility] [place] [facility] [address] [id number] [place] [address]- 6475 October, [facility] [place] [facility] [address] [id number] [place] [address]- 8170 October, [facility] [place] [facility] [address] [id number] [place] [address]- 4225 October, [facility] [place] [facility] [address] [id number] [place] [address]- 9159 October, [facility] [place] [facility] [address] [id number] [place] [address]- 9149 October, [facility] [place] [facility] [address] [id number] [place] [address]- 9584 Sep, [facility] [place] [facility] [address] [id number] [place] [address]- 6008 Sep, [facility] [place] [facility] [address] [id number] [place] [address]- 1905 Sep, [facility] [place] [facility] [address] [id number] [place] [address]- 9645 Sep, [facility] [place] [facility] [address] [id number] [place] [address]- 9534 Sep, [facility] [place] [facility] [address] [id number] [place] [address]- 5151 Sep, [facility] [place] [facility] [address] [id number] [place] [address]- 5613 Sep, [facility] [place] [facility] [address] [id number] [place] [address]- 4362 Sep, [facility] [place] [facility] [address] [id number] [place] [address]- 7574 Sep, [facility] [place] [facility] [address] [id number] [place] [address]- 0656 Sep, [facility] [place] [facility] [address] [id number] [place] [address]- 3363 Aug, [facility] [place] [facility] [address] [id number] [place] [address]- 9011 Aug, [facility] [place] [facility] [address] [id number] [place] [address]- 3987 Aug, [facility] [place] [facility] [address] [facility] [id number] [place] [address]- 2247 Aug, [facility] [place] [facility] [address] [id number] [place] [address]- 4393 Aug, [facility] [place] [facility] [address] [id number] [place] [address]- 1924 Aug, [facility] [place] [facility] [address] [facility] [id number] [place] [address]- 6259 Aug, [facility] [place] [facility] [address] [facility] [id number] [place] [address]- 9911 Aug, [facility] [place] [facility] [address] [id number] [place] [address]- 1147 Aug, [facility] [place] [facility] [address] [facility] [id number] [place] [address]- 7452 Jul, [facility] [place] [facility] [address] [facility] [id number] [place] [address]- 5149 Jul, [facility] [place] [facility] [address] [facility] [id number] [place] [address]- 6449 Jul, [facility] [place] [facility] [address] [facility] [id number] [place] [address]- 4825 Jul, [facility] [place] [facility] [address] [facility] [id number] [place] [address]- 2850 Jul, [facility] [place] [facility] [address] [facility] [id number] [place] [address]- 3746 Jul, [facility] [place] [facility] [address] [facility] [id number] [place] [address]- 1512 17 Jul, 2013 [facility] [place] [facility] [address] [id number] [place] [address]- 3796 Jul, [facility] [place] [facility] [address] [id number] [place] [address]- 1836 Jul, [facility] [place] [facility] [address] [id number] [place] [address]- 7266 Jul, [facility] [place] [facility] [address] [id number] [place] [address]- 2588 Jul, [facility] [place] [facility] [address] [id number] [place] [address]- 6465 Jul, [facility] [place] [facility] [address] [id number] [place] [address]- 0546 Jul, [facility] [place] [facility] [address] [id number] [place] [address]- 9858 Jul, [facility] [place] [facility] [address] [id number] [place] [address]- 2095 Jul, [facility] [place] [facility] [address] [id number] [place] [address]- 8227 Jul, [facility] [place] [facility] [address] [id number] [place] [address]- 8219 Jun, [facility] [place] [facility] [address] [id number] [place] [address]- 2085 Jun, [facility] [place] [facility] [address] [id number] [place] [address]- 3330 Jun, [facility] [place] [facility] [address] [id number] [place] [address]- 9745 Jun, [facility] [place] [facility] [address] [id number] [place] [address]- 3344 Jun, [facility] [place] [facility] [address] [id number] [place] [address]- 8265 Jun, [facility] [place] [facility] [address] [id number] [place] [address]- 7064 May, [facility] [address] [id number] [place] [address]- 1439 May, [facility] [place] [facility] [address] [id number], [place] [address]- 4032 May, [facility] [address] [id number] [place] [address]- 2358 May, [facility] [place] [facility] [address] [id number] [place] [address]- 8566 Apr, [facility] [address] [id number] [place] [address]- 7721 Apr, [facility] [place] [facility] [address] [id number] [place] [address]- 5573 Apr, [facility] [address] [id number], [place] [address]- 0872 Apr, [facility] [place] [facility] [address] [id number], [place] [address]- 6833 Apr, [facility] [address] [id number] [place] [address]- 3694 Apr, [facility] [place] [facility] [address] [id number] [place] [address]- 3655 Apr, [facility] [place] [facility] [address] [id number], [place] [address]- 7397 Apr, [facility] [place] [facility] [address] [id number], [place] [address]- 8662 Apr, [facility] [place] [facility] [address] [id number], [place] [address]- 0225 Apr, [facility] [place] [facility] [address] [id number], [place] [address]- 1872 Apr, [facility] [place] [facility] [address] [id number], [place] [address]- 3943 Apr, [facility] [place] [facility] [address] [id number] [place] [address]- 5322 28 Mar, 2013 [facility] [place] [facility] [address] [id number] [place] [address]- 3556 28 Mar, 2013 [facility] [place] [facility] [address] [id number] [place] [address] 2546 16 Mar, 2012 [facility] [place] [facility] [address] [id number] [place] [address] 2546 16 Mar, 2013 [facility] [place] [facility] [address] [id number] [place] [address] 2545 15 Mar, 2013 [facility] [place] [facility] [address] [id number] [place] [address]- 7464 15 Mar, 2013 [facility] [place] [facility] [address] [id number] [place] [address]- 8774 27 Feb, 2012 [facility] [place] [facility] [address] [id number] [place] [address]- 3996 25 Feb, 2012 [facility] [place] [facility] [address] [id number] [place] [address] 2544 25 Feb, 2012 [facility] [place] [facility] [address] [id number] [place] [address] 2541 23 Feb, 2012 [facility] [place] [facility] [address] [id number] [place] [address] 2540 17 Feb, 2012 [facility] [place] [facility] [address] [id number] [place] [address]- 2544 10 Feb, 2012 [facility] [place] [facility] [address] [id number] [place] [address] 2542 04 Feb, 2013 [facility] [place] [facility] [address] [id number] [place] [address] 2546 30 Jan, 2013 [facility] [place] [facility] [address] [id number] [place] [address] 2544 20 Jan, 2013 [facility] [place] [facility] [address] [id number] [place] [address]- 9604 Jan, [facility] [place] [facility] [address] [id number] [place] [address]- 3918 Jan, [facility] [place] [facility] [address] [id number] [place] [address]- 1532 Jan, [facility] [place] [facility] [address] [id number] [place] [address]- 7671 Jan, [facility] [place] [facility] [address] [id number] [place] [address]- 7826 Jan, [facility] [place] [facility] [address] [id number] [place] [address]- 4942 Dec, [facility] [place] [facility] [address] [id number] [place] [address]- 3059 Dec, [facility] [place] [facility] [address] [id number] [place] [address]- 1369 Dec, [facility] [place] [facility] [address] [id number] [place] [address]- 8925 Dec, [facility] [place] [facility] [address] [id number] [place] [address]- 7935 Dec, [facility] [place] [facility] [address] [id number] [place] [address]- 6768 Dec, [facility] [place] [facility] [address] [id number] [place] [address]- 2769 Nov, [facility] [place] [facility] [address] [id number], [place] [address]- 7715 Nov, [facility] [place] [facility] [address] [id number] [place] [address]- 0563 Nov, [facility] [place] [facility] [address] [id number] [place] [address] Nov, [facility] [place] [facility] [address] [id number] [place] [address] October, [facility] [place] [facility] [address] [id number] [place] [address] October, [facility] [address] [id number] [place] [address] October, [facility] [address] [id number] [place] [address] October, [facility] [address] [id number] [place] [address] Sep, [facility] [address] [id number] [place] [address] Sep, [facility] [address] [id number] [place] [address] 16 Sep, 2012 [facility] [address] [id number] [place] [address] Sep, [facility] [address] [id number] [place] [address] Sep, [facility] [address] [id number] [place] [address] Sep, [facility] [address] [id number] [place] [address] Sep, [facility] [address] [id number] [place] [address] Sep, [facility] [address] [id number] [place] [address] Aug, [facility] [address] [id number] [place] [address] Aug, [facility] [place] [facility] [address] [id number] [place] [address]- [address] 05 Aug, 2012 [facility] [place] [facility] [address] [id number] [place] [address] 18 Jul, 2012 [facility] [address] [id number] [place] [address]- [address] 08 Jul, 2012 [facility] [address] [id number] [place] [address] 07 Jul, 2012 [facility] [place] [facility] [address] [id number] [place] [address] 06 Jul, 2012 [facility] [address] [id number] [place] [address]- [address] 05 Jul, 2012 [facility] [place] [facility] [address] [id number] [place] [address]187 Jun, [facility] [address] [id number] [place] [address] Jun, [facility] [address] [id number] [place] [address] Jun, [facility] [address] [id number] [place] [address] May, [facility] [address] [id number] [place] [address] May, [facility] [place] [facility] [address] [id number] [place] [address] May, [facility] [address] [id number] [place] [address] May, [facility] [place] [facility] [address] [id number], [place] [address] May, [facility] [place] [facility] [address] [id number], [place] [address] May, [facility] [place] [facility] [address] [id number] [place] [address] 16[address] May, [facility] [place] [facility] [address] [id number], [place] [address] Apr, [facility] [place] [facility] [address] [id number] [place] [address]- [address] Apr, [facility] [place] [facility] [address] [id number] [place] [address]- 9480 Apr, [facility] [place] [facility] [address] [id number] [place] [address]- [address] Apr, [facility] [place] [facility] [address] [id number] [place] [address]- [address] Apr, [facility] [place] [facility] [address] [id number] [place] [address] Apr, [facility] [place] [facility] [address] [id number] [place] [address]- 407[address] Apr, [facility] [place] [facility] [address] [id number] [place] [address]- 6968 Apr, [facility] [place] [facility] [address] [id number] [place] [address]- [address] Apr, [facility] [place] [facility] [address] [facility] [id number] [place] [address]- [address] Apr, [facility] [place] [facility] [address] [id number] [place] [address]- [address] Apr, [facility] [place] [facility] [address] [id number] [place] [address]- [address] Mar, [facility] [place] [facility] [address] [facility] [id number] [place] [address]- 8708 Mar, [facility] [place] [facility] [address] [id number] [place] [address]- 1364 Mar, [facility] [place] [facility] [address] [id number], [place] [address] Mar, [facility] [place] [facility] [address] [id number] [place] [address]- [address] Mar, [facility] [place] [facility] [address] [facility] [id number] [place] [address]- 8076 Mar, [facility] [place] [facility] [address] [facility] [id number], [place] [address] Mar, [facility] [place] [facility] [address] [id number] [place] [address]- 2776 19 Mar, 2012 [facility] [place] [facility] [address] [id number] [place] [address]- 3346 16 Mar, 2012 [facility] [place] [facility] [address] [id number] [place] [address]- 2546 16 Mar, 2012 [facility] [place] [facility] [address] [id number] [place] [address]- [address] 04 Mar, 2012 [facility] [place] [facility] [address] [id number] [place] [address]- [address] 2011 [facility] [place] [facility] [address] [id number] [place] [address]- 8468 27 Feb, 2011 [facility] [place] [facility] [address] [id number] [place] [address]- [address] 27 Feb, 2011 [facility] [place] [facility] [address] [id number] [place] [address]- 3426 26 Feb, 2011 [facility] [place] [facility] [address] [id number] [place] [address]- 2382 24 Feb, 2011 [facility] [place] [facility] [address] [id number] [place] [address]- 5324 19 Feb, 2012 [facility] [place] [facility] [address] [id number] [place] [address] 2548 18 Feb, 2012 [facility] [place] [facility] [address] [id number] [place] [address] 2549 18 Feb, 2011 [facility] [place] [facility] [address] [id number] [place] [address] 2545 18 Feb, 2012 [facility] [place] [facility] [address] [id number] [place] [address]- 2543 30 Jan, 2012 [facility] [place] [facility] [address] [id number] [place] [address]- [address]44 23 Jan, 2012 [facility] [place] [facility] [address] [id number] [place] [address]- 7403 Jan, [facility] [place] [facility] [address] [id number] [place] [address]- 1816 Jan, [facility] [place] [facility] [address] [id number] [place] [address]- 1828 Dec, [facility] [place] [facility] [address] [id number] [place] [address]- 8337 Dec, [facility] [place] [facility] [address] [id number] [place] [address]- 7417 Dec, [facility] [place] [facility] [address] [id number] [place] [address]- 5667 Dec, [facility] [place] [facility] [address] [id number] [place] [address]- 0988 Dec, [facility] [place] [facility] [address] [id number] [place] [address] Dec, [facility] [place] [facility] [address] [id number] [place] [address] Dec, [facility] [place] [facility] [address] [id number] [place] [address] Dec, [facility] [place] [facility] [address] [id number] [place] [address] Dec, [facility] [place] [facility] [address] [id number] [place] [address] Dec, [facility] [place] [facility] [address] [id number] [place] [address] Dec, [facility] [place] [facility] [address] [id number] [place] [address] Dec, [facility] [place] [facility] [address] [id number] [place] [address] Dec, [facility] [place] [facility] [address] [id number] [place] [address] Dec, [facility] [place] [facility] [address] [id number] [place] [address] 26 Nov, 2011 [facility] [address] [id number] [place] [address] 14 Nov, 2011 [facility] [address] [id number] [place] [address] 5814 11 Nov, 2011 [facility] [address] [id number] [place] [address] 07 Nov, 2011 [facility] [address] [id number] [place] [address] 4438 07 Nov, 2011 [facility] [address] [id number] [place] [address] 07 Nov, 2011 [facility] [address] [id number] [place] [address] 1687 30 Oct, 2011 [facility] [address] [id number] [place] [address] 29 Oct, 2011 [facility] [address] [id number] [place] [address] October, [facility] [address] [id number] [place] [address] October, [facility] [address] [id number] [place] [address] 7185 19 Sep, 2011 [facility] [address] [id number] [place] [address] 67[address] 17 Sep, 2011 [facility] [address] [id number] [place] [address] 5618 13 Sep, 2011 [facility] [place] [facility] [address] [id number] [place] [address]- 4117 09 Sep, 2011 [facility] [place] [facility] [address] [id number] [place] [address] 03 Sep, 2011 [facility] [address] [id number] [place] [address] Aug, [facility] [address] [id number] [place] [address] 26 Aug, 2011 [facility] [address] [id number] [place] [address]288 21 Aug, 2011 [facility] [address] [facility] [id number] [place] [address] 6198 20 Aug, 2011 [facility] [address] [id number] [place] [address] 1536 13 Aug, 2011 [facility] [address] [id number] [place] [address] 7692 02 Aug, 2011 [facility] [address] [id number] [place] [address] Aug, [facility] [address] [facility] [id number] [place] [address] 6[address] 16 Jul, 2011 [facility] [address] [facility] [id number] [place] [address]- 8682 16 Jul, 2011 [facility] [address] [facility] [id number] [place] [address]- 5844 15 Jul, 2011 [facility] [address] [id number] [address] 15 Jul, 2011 [facility] [address] [facility] [id number], [place] [address]107 24 Jun, 2011 [facility] [address] [place] [id number] Jun, [facility] [address] [facility] [id number], [place] [address] 18 Jun, 2011 [facility] [address] [facility] [id number], [place] [address] Jun, [facility] [address] [facility] [id number], [place] [address] 8605 10 Jun, 2011 [facility] [address] [facility] [id number], [place] [address] Jun, [facility] [place] [facility] [address] [id number] [place] [address]- 9336 Jun, [facility] [place] [facility] [address] [id number] [place] [address]- 3131 Jun, [facility] [place] [facility] [address] [id number] [place] [address] May, [facility] [place] [facility] [address] [id number] [place] [address]- 6629 May, [facility] [place] [facility] [address] [id number] [place] [address]- 0640 May, [facility] [place] [facility] [address] [id number] [place] [address]- 6390 May, [facility] [place] [facility] [address] [id number] [place] [address]- 5549 May, [facility] [place] [facility] [address] [id number] [place] [address]- 0559 May, [facility] [place] [facility] [address] [id number] [place] [address]- 8120 May, [facility] [place] [facility] [address] [id number] [place] [address]- 9355 Apr, [facility] [place] [facility] [address] [id number], [place] [address] 8[address] Apr, [facility] [place] [facility] [address] [id number], [place] [address] 4[address] Apr, [facility] [place] [facility] [address] [id number] [place] [address]- 8616 Mar, [facility] [place] [facility] [address] [id number], [place] [address] 64[address] Mar, [facility] [place] [facility] [address] [id number] [place] [address]- 0767 14 Mar, 2011 [facility] [place] [facility] [address] [id number] [place] [address]- 6396 11 Mar, 2011 [facility] [address] [id number] [place] [address]- 1606 10 Mar, 2011 [facility] [place] [facility] [address] [id number] [place] [address] 2546 10 Mar, 2011 [facility] [address] [id number] [place] [address]- 7546 10 Mar, 2011 [facility] [address] [id number] [place] [address] 2541 11 Jan, 2011 [facility] [address] [id number] [place] [address]- 0263 27 May, 2010 [facility] [address] [id number] [place] [address]- 9702 21 May, 2010 [facility] [address] [id number] [place] [address]- 9056 13 May, 2010 [facility] [address] [id number] [place] [address]- 4806 13 May, 2010 [facility] [address] [id number] [place] [address] 2547 10 May, 2010 [facility] [address] [id number] [place] [address]- 2549 06 May, 2010 [facility] [place] [facility] [address] [id number] [place] [address] 2547 29 Apr, 2010 [facility] [place] [facility] [address] [id number] [place] [address] 2540 26 Apr, 2010 [facility] [place] [facility] [address] [id number] [place] [address] 2546 19 Apr, 2010 [facility] [place] [facility] [address] [id number] [place] [address]- 2546 18 Apr, 2010 [facility] [place] [facility] [address] [id number] [place] [address] 2542 15 Apr, 2010 [facility] [id number], [place] [address] Apr, [facility] [id number], [place] [address]- 5[address] Apr, [facility] [id number], [place] [address]- 9337 Apr, [facility] [id number], [place] [address] Apr, [facility] [id number], [place] [address]- 1429 Apr, [facility] [id number], [place] [address]- 8814 Mar, [facility] [id number], [place] [address]- [address]25 Mar, [facility] [id number] [place] [address] 1636 Mar, [facility] [id number] [address] [address] Mar, [facility] [id number], [place] [address]- 5094 Mar, [facility] [id number], [place] [address]- 9[address] Dec, [facility] [id number], [place] [address] Nov, IMMUNIZATIONS No Known Immunizations SOCIAL HISTORY Never Assessed REASON FOR VISIT Med change PLAN OF CARE VITAL SIGNS MEDICATIONS Medication Instructions Dosage Frequency Start Date End Date Duration Status Coumadin 1 MG Orally 1.5mg on Saturday, Saturday and Saturday and 1mg on Sun,Tu ,Thurs and Sat 1 tablet Active RESULTS No Results PROCEDURES [...] [facility] 08[facility]2017 Hospitalization History [facility] 01/2018
--- OUTSIDE RECORDS SUMMARY | 2018-07-05 14:53 | XMS REPORT ---
Author Author OMKAR SERRANO Organization [facility] Address [address] [place] [address] Care Team Providers Care Shipping And Receiving Clerk Name Role Phone OMKAR SERRANO Unavailable PROBLEMS Type Condition ICD9-CM Code [id number] Code Onset Dates Condition Status SNOMED Code Problem Anemia, unspecified type D64.9 Active 532563608 Problem Personality disorder F60.9 Active 44170910 Problem Factitious disorder imposed on self, recurrent episode F68.10 Active 75002435 Problem Ventral hernia without obstruction or gangrene K43.9 Active 952649103 Problem Allergic state, subsequent encounter T78.40XD Active 474342783 Problem Anxiety F41.9 Active 34024299 Problem Age-related osteoporosis without current pathological fracture M81.0 Active 29577541 Problem Unspecified psychosis not due to a substance or known physiological condition F29 Active 91179638 Problem Iron deficiency anemia, unspecified iron deficiency anemia type D50.9 Active 09815332 Problem History of CVA with residual deficit I69.30 Active 039251011 Problem Seizure disorder G40.909 Active 059866198 Problem Perennial allergic rhinitis, unspecified allergic rhinitis trigger J30.89 Active 056836077 Problem Chronic kidney disease, unspecified stage N18.9 Active 566182742 Problem Back pain M54.9 Active 320638460 Problem Gastroesophageal reflux disease without esophagitis K21.9 Active 578318951 Problem Insomnia, unspecified type G47.00 Active 142881366 Problem History of colon polyps Z86.010 Active 666523476 ALLERGIES No Information ENCOUNTERS Encounter Location Date Diagnosis [facility] [address] [facility] [id number], [place] [address] Mar, [facility] [address] [facility] [id number], [place] [address] Mar, Back pain M54.9 ; History of CVA with residual deficit I69.30 ; Seizure disorder G40.909 and Encounter for immunization Z23 [facility] [id number] [place] [address] 50651- 3988 Feb, [facility] [id number] [place] [address] 02773- 6429 Feb, Unspecified psychosis not due to a substance or known physiological condition F29 ; Personality disorder F60.9 and Factitious disorder imposed on self, recurrent episode F68.10 [facility] [id number] [place] [address] 04257- 1340 Feb, Back pain M54.9 [facility] [id number] [place] [address] 39306- 3490 Jan, Unspecified psychosis not due to a substance or known physiological condition F29 ; Personality disorder F60.9 and Factitious disorder imposed on self, recurrent episode F68.10 [facility] [id number] [place] [address] 08296- 3041 Jan, [facility] [id number] [place] [address] 52753- 6295 Jan, Back pain M54.9 and Seizure disorder G40.909 [facility] [id number] [place] [address] 34981- 0034 Jan, Back pain M54.9 [facility] [id number] [place] [address] 57355- 7429 Jan, Back pain M54.9 [facility] [id number] [place] [address] 22316- 3227 Jan, [facility] [id number] [place] [address] 50839- 3958 Jan, Unspecified psychosis not due to a substance or known physiological condition F29 ; Personality disorder F60.9 and Factitious disorder imposed on self, recurrent episode F68.10 [facility] [id number] [place] [address] 41726- 4006 Dec, Back pain M54.9 ; Seizure disorder G40.909 ; Ventral hernia without obstruction or gangrene K43.9 and History of CVA with residual deficit I69.30 [facility] [id number] [place] [address] 12746- 8567 Dec, Unspecified psychosis not due to a substance or known physiological condition F29 ; Personality disorder F60.9 and Factitious disorder imposed on self, recurrent episode F68.10 [facility] [id number] [place] [address] 59722- 4580 Dec, [facility] [id number] [place] [address] 13976- 8599 Dec, Back pain M54.9 [facility] [id number] [place] [address] 72475- 8654 Dec, Factitious disorder imposed on self, recurrent episode F68.10 ; Personality disorder F60.9 ; Insomnia, unspecified type G47.00 and Anxiety F41.9 [facility] [id number] [place] [address] 83751- 9007 Nov, Unspecified psychosis not due to a substance or known physiological condition F29 ; Personality disorder F60.9 and Factitious disorder imposed on self, recurrent episode F68.10 [facility] [address] [address] 1209 Nov, Back pain M54.9 [facility] [id number] [place] [address] 66400- 1692 Nov, Unspecified psychosis not due to a substance or known physiological condition F29 ; Personality disorder F60.9 and Factitious disorder imposed on self, recurrent episode F68.10 [facility] [address], [place] [address] 7227 October, [facility] [id number] [place] [address] 21243- 5664 October, [facility] [address], [place] [address] 6305 October, Unspecified psychosis not due to a substance or known physiological condition F29 ; Personality disorder F60.9 and Factitious disorder imposed on self, recurrent episode F68.10 [facility] [address], [place] [address]- 1355 October, Back pain M54.9 [facility] [id number] [place] [address] 12802- 6475 October, Seizure disorder G40.909 ; Back pain M54.9 and Allergic state, subsequent encounter T78.40XD [facility] [id number] [place] [address] 67724- 7166 October, [facility] [id number] [place] [address] 68353- 5561 Sep, Back pain M54.9 [facility] [id number] [place] [address] 07418- 6318 Sep, Unspecified psychosis not due to a substance or known physiological condition F29 ; Personality disorder F60.9 and Factitious disorder imposed on self, recurrent episode F68.10 [facility] [address], [place] [address]- 3921 Sep, [facility] [address], [place] [address]- 2403 Sep, [facility] [address], [place] [address]- 5503 Sep, [facility] [id number] [place] [address] 16108- 5803 Sep, [facility] [id number] [place] [address] 82816- 3296 Aug, [facility] [address], [place] [address]- 5992 Aug, Back pain M54.9 [facility] [id number], [place] [address]- 2664 15 Aug, 2017 Factitious disorder imposed on self, recurrent episode F68.10 ; Personality disorder F60.9 ; Insomnia, unspecified type G47.00 and Anxiety F41.9 [facility] [id number], [place] [address]- 1241 08 Aug, 2017 Back pain M54.9 ; Iron deficiency anemia, unspecified iron deficiency anemia type D50.9 ; Chronic kidney disease, unspecified stage N18.9 and Breast cancer screening Z12.31 [facility] [id number] [id number] Jul, Back pain M54.9 [facility] [id number] [place] [address] [id number] Jul, [facility] [id number] [place] [address] [id number] Jul, [facility] [id number] [place] [address] [id number] Jun, Back pain M54.9 [facility] [id number] [place] [address] [id number] Jun, [facility] [id number] [id number] Jun, Back pain M54.9 [facility] [address] [address]- 3380 Jun, Back pain M54.9 ; Seizure disorder G40.909 and Age-related osteoporosis without current pathological fracture M81.0 [facility] [id number] [id number] May, [facility] [address], [place] [address]- 5983 May, Back pain M54.9 [facility] [id number], [place] [address]- 8616 Apr, Back pain M54.9 ; Encounter for immunization Z23 ; Gastroesophageal reflux disease without esophagitis K21.9 ; Age-related osteoporosis without current pathological fracture M81.0 and Chronic pruritus L29.9 [facility] [id number] [place] [address] 22899- 0163 16 Apr, 2017 History of CVA with residual deficit I69.30 [facility] [id number] [place] [address] 12217- 3508 Apr, Factitious disorder imposed on self, recurrent episode F68.10 and Personality disorder F60.9 [facility] [id number] [place] [address] [id number] Apr, Back pain M54.9 [facility] [id number] [place] [address] 51447- 8312 Mar, Factitious disorder imposed on self, recurrent episode F68.10 [facility] [id number] [place] [address] 87420- 4180 Mar, [facility] [id number] [place] [address] [id number] Mar, [facility] [id number] [place] [address] [id number] Mar, Back pain M54.9 [facility] [id number] [place] [address] 81431- 6946 Mar, Back pain M54.9 ; Seizure disorder G40.909 and Age-related osteoporosis without current pathological fracture M81.0 [facility] [id number] [place] [address] 81264- 2716 Feb, History of CVA with residual deficit I69.30 [facility] [id number] [place] [address] 91737- 7435 Feb, Factitious disorder imposed on self, recurrent episode F68.10 and Personality disorder F60.9 [facility] [id number] [place] [address] 25936- 9300 15 Feb, 2017 Back pain M54.9 [facility] [address], [place] [address]- 9603 Feb, [facility] [address], [place] [address]- 0839 Jan, [facility] [address] [id number] Jan, Age- related osteoporosis without current pathological fracture M81.0 and Allergic state, subsequent encounter T78.40XD [facility] [id number], [place] [address]- 7952 Jan, Factitious disorder imposed on self, recurrent episode F68.10 and Personality disorder F60.9 [facility] [address], [place] [address]- 6544 Dec, Back pain M54.9 [facility] [address], [place] [address]- 6211 Dec, Personality disorder F60.9 and Factitious disorder imposed on self, recurrent episode F68.10 [facility] [id number] [place] [address] [id number] Dec, Back pain M54.9 [facility] [id number] [place] [address] [id number] Dec, [facility] [id number] [place] [address] [id number] Dec, [facility] [address], [place] [address]- 4530 Dec, [facility] [address], [place] [address]- 4712 Nov, [facility] [id number] [place] [address] 48307- 5207 Nov, Back pain M54.9 ; Anemia, unspecified type D64.9 and History of colon polyps Z86.010 [facility] [address], [place] [address]- 8722 Nov, Back pain M54.9 [facility] [id number] [id number] October, Back pain M54.9 [facility] [address] [id number] October, Back pain M54.9 and Gastroesophageal reflux disease without esophagitis K21.9 [facility] [id number] [id number] Sep, [facility] [id number], [place] [address]- 2094 Sep, [facility] [id number] [place] [address] 79124- 9482 Sep, [facility] [address], [place] [address]- 2673 Sep, [facility] [address], [place] [address]- 5498 Sep, [facility] [id number], [place] [address]- 5776 Sep, Seizure disorder G40.909 [facility] [id number], [place] [address]- 3726 Sep, Back pain M54.9 [facility] [address], [place] [address] 2546 Sep, [facility] [place] [id number], [place] [address] 2549 Aug, Back pain M54.9 [facility] [id number], [place] [address]- 4186 Aug, Seizure disorder G40.909 [facility] [address] [id number] [id number] Aug, [facility] [id number] [id number] 16 Aug, 2016 Back pain M54.9 [facility] [id number] [id number] 14 Aug, 2016 Back pain M54.9 [facility] [id number] [place] [address] [id number] 06 Aug, 2016 Back pain M54.9 [facility] [address] [place] [id number] Jul, Weakness R53.1 [facility] [id number] [place] [address] 33366- 5341 Jul, Seizure disorder G40.909 [facility] [id number] [place] [address] 20786- 0958 Jul, [facility] [id number] [place] [address] 89104- 8046 Jul, Breast cancer screening Z12.39 [facility] [id number] [place] [address] 84882- 3028 Jul, [facility] [id number] [place] [address] 90499- 4197 Jul, [facility] [id number] [place] [address] 86325- 2668 Jul, [facility] [id number] [place] [address] 93578- 4813 Jul, Seizure disorder G40.909 ; Fatigue, unspecified type R53.83 ; Perennial allergic rhinitis, unspecified allergic rhinitis trigger J30.89 and Chronic kidney disease, unspecified stage N18.9 [facility] [id number] [place] [address] 91103- 9587 Jul, [facility] [id number] [place] [address] 13425- 0369 Jul, Seizure disorder G40.909 [facility] [id number] [place] [address] 75223- 3558 Jun, [facility] [address], [place] [address]- 7770 Jun, [facility] [address] [id number] Jun, Perennial allergic rhinitis, unspecified allergic rhinitis trigger J30.89 [facility] [id number] [place] [address] [id number] Jun, [facility] [id number] [place] [address] 98630- 5487 Jun, Seizure disorder G40.909 [facility] [id number] [place] [address] [id number] Jun, [facility] [id number] [place] [address] [id number] May, [facility] [id number] [place] [address] 94175- 6044 May, [facility] [id number] [place] [address] 62996- 5603 May, [facility] [id number] [place] [address] 67328- 8813 May, [facility] [id number] [place] [address] 02207- 8220 May, History of CVA with residual deficit I69.30 [facility] [id number] [place] [address] 23523- 6863 May, [facility] [id number] [place] [address] 41726- 0127 May, [facility] [id number] [place] [address] 72522- 9469 May, [facility] [address], [place] [address]- 4607 May, Seizure disorder G40.909 [facility] [id number] [place] [address] 00466- 7335 May, [facility] [address] [place] [address] May, Back pain M54.9 and Seizure disorder G40.909 [facility] [address] [id number], [place] [address]- 3871 Apr, [facility] [address] [facility] [id number] [place] [address] 97948- 7724 Apr, Back pain M54.9 [facility] [address] [facility] [id number] [place] [address] 71420- 7437 Mar, [facility] [address] [place] [address] Mar, Insomnia, unspecified type G47.00 [facility] [address] [facility] [id number], [place] [address]- 2187 Mar, [facility] [address] [facility] [id number] [place] [address] 50000- 2147 Feb, [facility] [address] [facility] [id number] [place] [address] 03388- 6916 Feb, [facility] [id number] [place] [address] 52390- 7431 Feb, [facility] [address] [facility] [id number], [place] [address]- 3432 Jan, [facility] [address] [facility] [id number] [place] [address] 85206- 0561 Jan, [facility] [address] [place] [address] Jan, Seizure disorder G40.909 and Back pain M54.9 [facility] [address] [facility] [id number] [place] [address] [id number]- [phone] Dec, [facility] [place] [address] [facility] [id number], [place] [address] Dec, [facility] [place] [id number] [place] [address] [id number]- [phone] 08 Dec, 2015 [facility] [place] [id number] [place] [address] 80653- 5590 Nov, [facility] [place] [id number] [place] [address] [id number]- 2967 Nov, [facility] [place] [id number] [place] [address] 51947- 2033 Nov, Back pain M54.9 [facility] [place] [id number] [place] [address] 69595- 6827 October, [facility] [place] [id number] [place] [address] 31709- 3624 October, Back pain M54.9 [facility] [place] [id number] [place] [address] 86161- 4281 October, Seizure disorder G40.909 and B12 deficiency E53.8 [facility] [place] [id number] [place] [address] 16954- 8958 Sep, History of CVA with residual deficit I69.30 [facility] [place] [id number] [place] [address] [id number]- 2374 Sep, [facility] [place] [id number] [place] [address] 69283- 1718 Sep, [facility] [place] [id number] [place] [address] 38241- 0977 Sep, Back pain M54.9 [facility] [place] [id number] [place] [address] 06822- 2971 Sep, Seizure disorder G40.909 [facility] [place] [id number] [place] [address] 79304- 3566 Aug, Back pain M54.9 [facility] [place] [address] [id number] [place] [address]- 2540 Aug, Seizure disorder G40.909 [facility] [id number], [place] [address] 6[address] 16 Aug, 2015 Back pain M54.9 [facility] [place] [id number] [place] [address] 92696 2546 14 Aug, 2015 Heart failure, unspecified I50.9 [facility] [place] [id number] [place] [address] 16690 2546 14 Aug, 2015 Medication monitoring encounter Z51.81 [facility] [place] [id number] [place] [address] 91540- 6391 Jul, [facility] [place] [id number] [place] [address] 14756- 6116 09 Jul, 2015 Seizure disorder G40.909 [facility] [place] [id number] [place] [address] 38366- 0253 05 Jul, 2015 Back pain M54.9 [facility] [place] [id number] [place] [address] 49416- 0568 Jun, [facility] [place] [id number] [place] [address] 35259- 4137 Jun, [facility] [place] [id number] [place] [address] 16934- 3551 Jun, Mental status change R41.82 ; History of CVA with residual deficit I69.30 ; Back pain M54.9 and Seizure disorder G40.909 [facility] [place] [id number], [place] [address] 6121 Jun, [facility] [place] [id number], [place] [address] 1796 May, [facility] [place] [id number] [place] [address] 21668- 7486 Apr, [facility] [place] [id number] [place] [address] 99364- 2715 Apr, Medication monitoring encounter Z51.81 [facility] [place] [address] [facility] [id number] [place] [address]- 6260 Mar, Vomiting R11.10 [facility] [address] [id number] [place] [address]- 3406 Mar, [facility] [address] [id number] [place] [address] 2546 Feb, [facility] [address] [id number] [place] [address]- 5096 Feb, UTI (urinary tract infection) 599.0 [facility] [address] [id number] [place] [address]- 5246 Jan, [facility] [address] [id number] [place] [address]- 8966 Jan, [facility] [address] [id number] [place] [address]- 9116 Jan, [facility] [address] [id number] [place] [address]- 0196 Dec, [facility] [address] [id number] [place] [address]- 7920 Dec, [facility] [address] [id number] [place] [address]- 3956 Dec, [facility] [address] [id number] [place] [address]- 2546 Dec, [facility] [address] [id number] [place] [address]- 2546 Nov, UNKNOWN Nov, [facility] [address] [id number] [place] [address]- 2546 October, [facility] [address] [id number] [place] [address]- 2546 14 Sep, 2014 [facility] [address] [id number] [place] [address]- 2546 Sep, [facility] [place] [facility] [address] [id number] [place] [address]- 5211 Aug, [facility] [place] [facility] [address] [id number] [place] [address]- 8512 Aug, [facility] [place] [facility] [address] [id number] [place] [address]- 4036 Jul, [facility] [place] [facility] [address] [id number] [place] [address]- 2546 Jul, [facility] [place] [facility] [address] [id number] [place] [address]- 3316 Jul, [facility] [place] [facility] [address] [id number] [place] [address]- 0122 Jul, [facility] [place] [facility] [address] [id number] [place] [address]- 3178 Jul, [facility] [place] [facility] [address] [id number] [place] [address]- 2377 Jun, [facility] [place] [facility] [address] [id number] [place] [address]- 6079 Jun, [facility] [place] [facility] [address] [id number] [place] [address]- 4194 Jun, [facility] [place] [facility] [address] [id number] [place] [address]- 2237 Jun, [facility] [place] [facility] [address] [id number] [place] [address]- 7654 Jun, [facility] [place] [facility] [address] [id number] [place] [address]- 8761 Jun, [facility] [place] [facility] [address] [id number] [place] [address]- 9094 Jun, [facility] [place] [facility] [address] [id number] [place] [address]- 6474 Jun, [facility] [place] [facility] [address] [id number] [place] [address]- 5516 Jun, [facility] [place] [facility] [address] [id number] [place] [address]- 0456 Jun, [facility] [place] [facility] [address] [id number] [place] [address]- 6576 Jun, [facility] [place] [facility] [address] [id number] [place] [address]- 4468 Jun, [facility] [place] [facility] [address] [id number] [place] [address]- 3207 Jun, [facility] [place] [facility] [address] [id number] [place] [address]- 0490 Jun, [facility] [place] [facility] [address] [id number] [place] [address]- 3390 Jun, [facility] [place] [facility] [address] [id number] [place] [address]- 7499 Jun, [facility] [place] [facility] [address] [id number] [place] [address]- 5301 Jun, [facility] [place] [facility] [address] [id number] [place] [address]- 2463 Jun, [facility] [place] [facility] [address] [id number] [place] [address]- 2819 May, [facility] [place] [facility] [address] [id number] [place] [address]- 3554 May, [facility] [place] [facility] [address] [id number] [place] [address]- 2233 30 May, 2014 [facility] [place] [facility] [address] [id number] [place] [address]- 2251 May, [facility] [place] [facility] [address] [id number] [place] [address]- 4659 May, [facility] [place] [facility] [address] [id number] [place] [address]- 7037 16 May, 2014 [facility] [place] [facility] [address] [id number] [place] [address]- 4349 16 May, 2014 [facility] [address] [id number] [place] [address]- 4094 May, [facility] [place] [facility] [address] [id number] [place] [address]- 4576 May, [facility] [address] [id number] May, [facility] [address] [id number] [place] [address]- 1125 May, [facility] [address] [id number] [place] [address]- 7603 May, [facility] [address] [id number] [place] [address]- 6819 May, [facility] [address] [id number] [place] [address]- 1636 Apr, [facility] [place] [facility] [address] [id number] [place] [address]- 4873 Apr, [facility] [place] [facility] [address] [id number] [place] [address]- 8804 Apr, [facility] [place] [facility] [address] [id number] [place] [address]- 4375 Apr, [facility] [place] [facility] [address] [id number] [place] [address]- 6592 Apr, [facility] [place] [facility] [address] [id number] [place] [address]- 1437 Apr, [facility] [place] [facility] [address] [id number] [place] [address]- 4758 Mar, [facility] [place] [facility] [address] [id number] [place] [address]- 1022 Mar, [facility] [place] [facility] [address] [id number] [place] [address]- 3610 Mar, [facility] [place] [facility] [address] [id number] [place] [address]- 2921 Mar, [facility] [place] [facility] [address] [id number] [place] [address]- 0606 Mar, [facility] [place] [facility] [address] [id number] [place] [address]- 2543 Mar, [facility] [place] [facility] [address] [id number] [place] [address] 254 24 Feb, 2014 [facility] [place] [facility] [address] [id number] [place] [address] 2547 24 Feb, 2014 [facility] [place] [facility] [address] [id number] [place] [address]- 7424 Feb, [facility] [place] [facility] [address] [id number] [place] [address]- 9722 Feb, [facility] [place] [facility] [address] [id number] [place] [address]- 2997 Feb, [facility] [place] [facility] [address] [id number] [place] [address] 2541 Feb, [facility] [place] [facility] [address] [id number] [place] [address]- 8563 Feb, [facility] [place] [facility] [address] [id number] [place] [address] 2545 Feb, [facility] [place] [facility] [address] [id number] [place] [address]- 2540 Feb, [facility] [place] [facility] [address] [id number] [place] [address]- 2541 Feb, [facility] [address] [id number] Feb, [facility] [place] [facility] [address] [id number] [place] [address]- 2548 Feb, [facility] [place] [facility] [address] [id number] [place] [address]- 1035 Jan, [facility] [place] [facility] [address] [id number] [place] [address]- 2628 Jan, [facility] [place] [facility] [address] [id number] [place] [address]- 2476 Dec, [facility] [place] [facility] [address] [id number] [place] [address]- 1077 Dec, [facility] [place] [facility] [address] [id number] [place] [address]- 5678 Dec, [facility] [place] [facility] [address] [id number] [place] [address]- 2674 Dec, [facility] [place] [facility] [address] [id number] [place] [address]- 5730 Dec, [facility] [place] [facility] [address] [id number] [place] [address]- 7006 Dec, [facility] [place] [facility] [address] [id number] [place] [address]- 3742 Dec, [facility] [place] [facility] [address] [id number] [place] [address]- 9903 Dec, [facility] [place] [facility] [address] [id number] [place] [address]- 9343 Dec, [facility] [place] [facility] [address] [id number] [place] [address]- 2958 Dec, [facility] [place] [facility] [address] [id number] [place] [address]- 0561 Nov, [facility] [place] [facility] [address] [id number] [place] [address]- 4278 Nov, [facility] [place] [facility] [address] [id number] [place] [address]- 9857 Nov, [facility] [place] [facility] [address] [id number] [place] [address]- 5958 Nov, [facility] [place] [facility] [address] [id number] [place] [address]- 1789 Nov, [facility] [place] [facility] [address] [id number] [place] [address]- 2575 Nov, [facility] [place] [facility] [address] [id number] [place] [address]- 8965 Nov, [facility] [place] [facility] [address] [id number] [place] [address]- 7657 Nov, [facility] [place] [facility] [address] [id number] [place] [address]- 4574 Nov, [facility] [place] [facility] [address] [id number] [place] [address]- 4383 Nov, [facility] [place] [facility] [address] [id number] [place] [address]- 2055 Nov, [facility] [place] [facility] [address] [id number] [place] [address]- 1415 Nov, [facility] [place] [facility] [address] [id number] [place] [address]- 2192 Nov, [facility] [place] [facility] [address] [id number] [place] [address]- 1543 Nov, [facility] [place] [facility] [address] [id number] [place] [address]- 6535 October, [facility] [place] [facility] [address] [id number] [place] [address]- 4516 October, [facility] [place] [facility] [address] [id number] [place] [address]- 4129 October, [facility] [place] [facility] [address] [id number] [place] [address]- 9071 October, [facility] [place] [facility] [address] [id number] [place] [address]- 8394 October, [facility] [place] [facility] [address] [id number] [place] [address]- 6620 October, [facility] [place] [facility] [address] [id number] [place] [address]- 3552 October, [facility] [place] [facility] [address] [id number] [place] [address]- 0702 October, [facility] [place] [facility] [address] [id number] [place] [address]- 3366 October, [facility] [place] [facility] [address] [id number] [place] [address]- 3274 October, [facility] [place] [facility] [address] [id number] [place] [address]- 5355 Sep, [facility] [place] [facility] [address] [id number] [place] [address]- 2744 Sep, [facility] [place] [facility] [address] [id number] [place] [address]- 4315 Sep, [facility] [place] [facility] [address] [id number] [place] [address]- 3136 Sep, [facility] [place] [facility] [address] [id number] [place] [address]- 8459 Sep, [facility] [place] [facility] [address] [id number] [place] [address]- 2540 Sep, [facility] [place] [facility] [address] [id number] [place] [address]- 7085 Sep, [facility] [place] [facility] [address] [id number] [place] [address]- 5214 Sep, [facility] [place] [facility] [address] [id number] [place] [address]- 1387 Sep, [facility] [place] [facility] [address] [id number] [place] 8694 Sep, [facility] [place] [facility] [address] [id number] [place] [address]- 4297 Aug, [facility] [place] [facility] [address] [id number] [place] [address]- 9857 Aug, [facility] [place] [facility] [address] [id number] [place] [address]- 1744 Aug, [facility] [place] [facility] [address] [id number] [place] [address]- 1346 Aug, [facility] [place] [facility] [address] [id number] [place] [address]- 3847 Aug, [facility] [place] [facility] [address] [id number] [place] [address]- 4524 Aug, [facility] [place] [facility] [address] [id number] [place] [address]- 9925 Aug, [facility] [place] [facility] [address] [id number] [place] [address]- 6565 Aug, [facility] [place] [facility] [address] [facility] [id number] [place] [address]- 1695 Aug, [facility] [place] [facility] [address] [id number] [place] [address]- 8189 Jul, [facility] [place] [facility] [address] [id number] [place] [address]- 2461 Jul, [facility] [place] [facility] [address] [facility] [id number] [place] [address]- 6876 Jul, [facility] [place] [facility] [address] [facility] [id number] [place] [address]- 8943 Jul, [facility] [place] [facility] [address] [id number] [place] [address]- 8410 Jul, [facility] [place] [facility] [address] [id number] [place] [address]- 5400 Jul, [facility] [place] [facility] [address] [facility] [id number] [place] [address]- 0771 Jul, [facility] [place] [facility] [address] [facility] [id number] [place] [address]- 0802 Jul, [facility] [place] [facility] [address] [id number] [place] [address]- 3600 Jul, 2013 [facility] [place] [facility] [address] [id number] [place] [address]- 0905 Jul, 2013 [facility] [place] [facility] [address] [id number] [place] [address]- 6171 Jul, [facility] [place] [facility] [address] [id number] [place] [address]- 0433 Jul, 2013 [facility] [place] [facility] [address] [id number] [place] [address]- 5481 Jul, [facility] [place] [facility] [address] [id number] [place] [address]- 2512 Jul, [facility] [place] [facility] [address] [facility] [id number] [place] [address]- 9241 Jul, [facility] [place] [facility] [address] [id number] [place] [address]- 5608 Jul, [facility] [place] [facility] [address] [id number] [place] [address]- 4111 Jun, [facility] [place] [facility] [address] [facility] [id number] [place] [address]- 9548 Jun, [facility] [place] [facility] [address] [facility] [id number], [place] [address]- 2353 Jun, [facility] [place] [facility] [address] [id number], [place] [address]- 0376 Jun, [facility] [place] [facility] [address] [id number] [place] [address]- 5237 Jun, [facility] [place] [facility] [address] [id number] [place] [address]- 7705 Jun, [facility] [place] [facility] [address] [facility] [id number], [place] [address]- 1539 May, [facility] [place] [facility] [address] [id number], [place] [address]- 0091 May, [facility] [address] [id number] [place] [address]- 7579 May, [facility] [place] [facility] [address] [id number] [place] [address]- 5304 May, [facility] [place] [facility] [address] [facility] [id number] [place] [address]- 6732 Apr, [facility] [place] [facility] [address] [id number] [place] [address]- 9689 Apr, [facility] [place] [facility] [address] [id number] [place] [address]- 3236 Apr, [facility] [place] [facility] [address] [id number] [place] [address]- 3922 Apr, [facility] [place] [facility] [address] [facility] [id number] [place] [address]- 9285 Apr, [facility] [place] [facility] [address] [id number] [place] [address] Apr, [facility] [place] [facility] [address] [facility] [id number] [place] [address] 17[address] Apr, [facility] [place] [facility] [address] [facility] [id number] [place] [address] Apr, [facility] [place] [facility] [address] [id number], [place] [address] Apr, [facility] [place] [facility] [address] [id number], [place] [address] Apr, [facility] [place] [facility] [address] [id number], [place] [address] Apr, [facility] [place] [facility] [address] [facility] [id number], [place] [address] Apr, [facility] [place] [facility] [address] [facility] [id number], [place] [address] Mar, [facility] [place] [facility] [address] [id number] [place] [address]41 28 Mar, 2012 [facility] [place] [facility] [address] [id number] [place] [address] 16 Mar, 2013 [facility] [place] [facility] [address] [id number] [place] [address] 2546 16 Mar, 2012 [facility] [place] [facility] [address] [id number] [place] [address]- 1766 15 Mar, 2013 [facility] [place] [facility] [address] [id number] [place] [address]- [address]43 15 Mar, 2013 [facility] [place] [facility] [address] [id number] [place] [address] 27 Feb, 2012 [facility] [place] [facility] [address] [id number] [place] [address]- 2044 25 Feb, 2012 [facility] [place] [facility] [address] [id number] [place] [address]- 6[address] 25 Feb, 2012 [facility] [place] [facility] [address] [id number] [place] [address] 2549 23 Feb, 2012 [facility] [place] [facility] [address] [id number] [place] [address]- 6026 17 Feb, 2012 [facility] [place] [facility] [address] [id number] [place] [address]- 9908 10 Feb, 2012 [facility] [place] [facility] [address] [id number] [place] [address]- 2541 04 Feb, 2012 [facility] [place] [facility] [address] [id number] [place] [address] 2548 30 Jan, 2013 [facility] [place] [facility] [address] [id number] [place] [address] 2546 20 Jan, 2013 [facility] [place] [facility] [address] [id number] [place] [address]- 254 15 Jan, 2013 [facility] [place] [facility] [address] [id number] [place] [address]- 2379 Jan, [facility] [place] [facility] [address] [id number] [place] [address]- 7019 Jan, [facility] [place] [facility] [address] [id number] [place] [address]- 2046 Jan, [facility] [place] [facility] [address] [id number] [place] [address] Jan, [facility] [place] [facility] [address] [id number] [place] [address]- 6476 Dec, [facility] [place] [facility] [address] [id number] [place] [address]- [address]40 Dec, [facility] [place] [facility] [address] [id number] [place] [address]- 7592 Dec, [facility] [place] [facility] [address] [id number] [place] [address]- [address]378 Dec, [facility] [place] [facility] [address] [id number] [place] [address]- 6973 Dec, [facility] [place] [facility] [address] [id number] [place] [address]- [address]15 Dec, [facility] [place] [facility] [address] [id number] [place] [address] Nov, [facility] [place] [facility] [address] [id number] [place] [address]- 6314 Nov, [facility] [place] [facility] [address] [id number] [place] [address]- 8709 Nov, [facility] [place] [facility] [address] [id number] [place] [address]- 1823 Nov, [facility] [place] [facility] [address] [id number] [place] [address]- 9784 October, [facility] [place] [facility] [address] [id number] [place] [address]- 0810 October, [facility] [place] [facility] [address] [id number] [place] [address]- 3009 07 Oct, 2012 [facility] [address] [id number] [place] [address]- [address]162 October, [facility] [address] [id number] [place] [address]- [address] Sep, [facility] [address] [id number] [place] [address]- 6[address] Sep, [facility] [address] [id number] [place] [address]- 1754 16 Sep, 2012 [facility] [address] [id number] [place] [address]- 1662 Sep, [facility] [address] [id number] [place] [address]- 1689 Sep, [facility] [address] [id number] [place] [address]- 4027 Sep, [facility] [address] [id number] [place] [address]- 1433 Sep, [facility] [address] [id number] [place] [address]- 4521 Sep, [facility] [address] [id number] [place] [address]- 0352 Aug, [facility] [address] [id number] [place] [address]- 1006 Aug, [facility] [address] [id number] [place] [address]- 0324 05 Aug, 2012 [facility] [place] [facility] [address] [id number] [place] [address]- 1014 18 Jul, 2012 [facility] [place] [facility] [address] [id number] [place] [address]- 7287 08 Jul, 2012 [facility] [address] [id number] [place] [address]- 8736 07 Jul, 2012 [facility] [place] [facility] [address] [id number] [place] [address]- 6986 06 Jul, 2012 [facility] [place] [facility] [address] [id number] [place] [address]- 7846 Jul, [facility] [place] [facility] [address] [id number] [place] [address]- 3982 Jun, [facility] [place] [facility] [address] [id number] [place] [address]- 9988 Jun, [facility] [place] [facility] [address] [id number] [place] [address]- 1147 Jun, [facility] [place] [facility] [address] [id number] [place] [address]- 8918 May, [facility] [place] [facility] [address] [id number] [place] [address]- 8709 May, [facility] [place] [facility] [address] [id number] [place] [address]- 0434 May, [facility] [place] [facility] [address] [id number] [place] [address]- 1195 May, [facility] [place] [facility] [address] [id number] [place] [address]- 0579 May, [facility] [place] [facility] [address] [id number] [place] [address]- 9888 May, [facility] [place] [facility] [address] [id number], [place] [address]- 9686 May, [facility] [place] [facility] [address] [id number] [place] [address]- 3726 Apr, [facility] [place] [facility] [address] [id number] [place] [address]- 5669 Apr, [facility] [place] [facility] [address] [id number] [place] [address] Apr, [facility] [place] [facility] [address] [id number], [place] [address] Apr, [facility] [place] [facility] [address] [id number] [place] [address] 9[address] Apr, [facility] [place] [facility] [address] [facility] [id number], [place] [address] 9[address] Apr, [facility] [place] [facility] [address] [facility] [id number] [place] [address]- 7472 Apr, [facility] [place] [facility] [address] [id number], [place] [address] 9716 Apr, [facility] [place] [facility] [address] [facility] [id number] [place] [address], [place] [address] 8986 Apr, [facility] [place] [facility] [address] [facility] [id number], [place] [address] 4482 Apr, [facility] [place] [facility] [id number] [place] [address]- [address]999 Apr, [facility] [place] [facility] [address] [facility] [id number], [place] [address] 2429 Mar, [facility] [place] [facility] [address] [facility] [id number], [place] [address] 4536 Mar, [facility] [place] [facility] [address] [facility] [id number], [place] [address] 5906 Mar, [facility] [place] [facility] [address] [facility] [id number], [place] [address] 6685 Mar, [facility] [place] [facility] [address] [facility] [id number], [place] [address] 8048 Mar, [facility] [place] [facility] [address] [facility] [id number], [place] [address] 6885 Mar, [facility] [place] [facility] [address] [facility] [id number], [place] [address] 7513 Mar, [facility] [place] [facility] [address] [facility] [id number], [place] [address]- 475[address] Mar, [facility] [place] [facility] [address] [id number] [place] [address] 4912 16 Mar, 2011 [facility] [place] [facility] [address] [id number] [place] [address] 1126 16 Mar, 2012 [facility] [place] [facility] [address] [id number] [place] [address] 2546 04 Mar, 2012 [facility] [place] [facility] [address] [id number] [place] [address] 2546 28 Sep, 2011 [facility] [place] [facility] [address] [id number] [place] [address] 2540 27 Sep, 2011 [facility] [place] [facility] [address] [id number] [place] [address]- 2541 27 Feb, 2011 [facility] [place] [facility] [address] [id number] [place] [address]- 8164 26 Feb, 2011 [facility] [place] [facility] [address] [id number] [place] [address]- 0156 24 Feb, 2011 [facility] [place] [facility] [address] [id number] [place] [address] 2540 19 Feb, 2011 [facility] [place] [facility] [address] [id number] [place] [address]- 5665 18 Feb, 2012 [facility] [place] [facility] [address] [id number] [place] [address] 254 18 Feb, 2012 [facility] [place] [facility] [address] [id number] [place] [address] 2544 18 Feb, 2012 [facility] [place] [facility] [address] [id number] [place] [address] 2540 30 Jan, 2012 [facility] [place] [facility] [address] [id number] [place] [address] 2546 Jan, [facility] [place] [facility] [address] [id number] [place] [address]- 2547 Jan, [facility] [place] [facility] [address] [id number] [place] [address]- 2117 Jan, [facility] [place] [facility] [address] [id number] [place] [address]- 0320 Dec, [facility] [place] [facility] [address] [id number] [place] [address]- 2850 Dec, [facility] [place] [facility] [address] [id number] [place] [address]- 0063 Dec, [facility] [place] [facility] [address] [id number] [place] [address]- 2629 Dec, [facility] [place] [facility] [address] [id number] [place] [address]- 4553 Dec, [facility] [place] [facility] [address] [id number] [place] [address]- 2232 Dec, [facility] [place] [facility] [address] [id number] [place] [address]- 3862 Dec, [facility] [place] [facility] [address] [id number] [place] [address]- 9197 Dec, [facility] [place] [facility] [address] [id number] [place] [address]- 9902 Dec, [facility] [place] [facility] [address] [id number] [place] [address]- 4950 Dec, [facility] [place] [facility] [address] [id number] [place] [address]- 0757 Dec, [facility] [place] [facility] [address] [id number] [place] [address]- 8687 Dec, [facility] [place] [facility] [address] [id number] [place] [address]- 9766 Dec, [facility] [place] [facility] [address] [id number] [place] [address]- 6483 Dec, [facility] [place] [facility] [address] [id number] [place] [address]- 1659 Nov, [facility] [place] [facility] [address] [id number] [place] [address]- 6313 14 Nov, 2011 [facility] [address] [id number] [place] [address]- 0978 11 Nov, 2011 [facility] [place] [facility] [address] [id number] [place] [address]- 6176 07 Nov, 2011 [facility] [address] [id number] [place] [address]- 1304 07 Nov, 2011 [facility] [place] [facility] [address] [id number] [place] [address]- 6594 07 Nov, 2011 [facility] [place] [facility] [address] [id number] [place] [address]- 6669 30 Oct, 2011 [facility] [place] [facility] [address] [id number] [place] [address]- 6697 October, [facility] [address] [id number] [place] [address]- 1150 October, [facility] [place] [facility] [address] [id number] [place] [address]- 5523 October, [facility] [place] [facility] [address] [id number] [place] [address]- 2388 Sep, [facility] [place] [facility] [address] [id number] [place] [address]- 6564 17 Sep, 2011 [facility] [place] [facility] [address] [id number] [place] [address]- 3924 13 Sep, 2011 [facility] [place] [facility] [address] [id number] [place] [address]- 1866 09 Sep, 2011 [facility] [place] [facility] [address] [id number] [place] [address]- 6595 Sep, [facility] [place] [facility] [address] [id number] [place] [id number] [address] Aug, [facility] [place] [facility] [address] [id number] [place] [address]45 Aug, [facility] [place] [facility] [address] [id number] [place] [address]- 5926 Aug, [facility] [address] [id number] [place] [address]- 1887 20 Aug, 2011 [facility] [address] [id number] [place] [address]- 8056 13 Aug, 2011 [facility] [address] [id number] [place] [address]- 4699 Aug, [facility] [address] [id number] [place] [address]- 1983 Aug, [facility] [address] [id number] [place] [address]- 8463 16 Jul, 2011 [facility] [address] [id number] [place] [address]- 9578 16 Jul, 2011 [facility] [address] [id number] [place] [address]- 2000 15 Jul, 2011 [facility] [address] [id number] [place] [address]- 5571 Jul, [facility] [address] [facility] [id number], [place] [address]- [address]49 Jun, [address] [id number] Jun, [facility] [address] [id number], [place] [address]- 9346 Jun, [facility] [address] [id number], [place] [address]- 0634 Jun, [facility] [place] [facility] [address] [id number] [place] [address]- 8089 Jun, [facility] [address] [id number], [place] [address]- 1916 Jun, [facility] [address] [id number], [place] [address]- 4094 Jun, [facility] [place] [facility] [address] [id number] [place] [address]- 5556 Jun, [facility] [place] [facility] [address] [id number] [place] [address]- 0253 May, [facility] [place] [facility] [address] [id number] [place] [address]- 2065 May, [facility] [place] [facility] [address] [id number] [place] [address]- 3264 May, [facility] [place] [facility] [address] [id number] [place] [address]- 7128 May, [facility] [place] [facility] [address] [id number] [place] [address]- 0742 May, [facility] [place] [facility] [address] [id number] [place] [address]- 7395 May, [facility] [place] [facility] [address] [id number] [place] [address]- 9210 May, [facility] [place] [facility] [address] [id number] [place] [address]- 3355 Apr, [facility] [place] [facility] [address] [id number] [place] [address]- 1758 Apr, [facility] [place] [facility] [address] [id number], [place] [address]- 6513 Apr, [facility] [place] [facility] [address] [id number], [place] [address]- 9193 Mar, [facility] [place] [facility] [address] [id number] [place] [address]- 3801 Mar, [facility] [place] [facility] [address] [id number], [place] [address]- 3929 14 Mar, 2011 [facility] [place] [facility] [address] [id number], [place] [address]- 6936 Mar, [facility] [place] [facility] [address] [id number] [place] [address]- 6346 10 Mar, 2011 [facility] [place] [facility] [address] [id number] [place] [address]- 2476 10 Mar, 2011 [facility] [place] [facility] [address] [id number] [place] [address] 2546 10 Mar, 2011 [facility] [address] [id number] [place] [address] 2546 11 Jan, 2011 [facility] [place] [facility] [address] [id number] [place] [address] 2546 27 May, 2010 [facility] [place] [facility] [address] [id number] [place] [address] 2546 21 May, 2010 [facility] [place] [facility] [address] [id number] [place] [address] 2544 13 May, 2010 [facility] [place] [facility] [address] [id number] [place] [address]- 2915 13 May, 2010 [facility] [place] [facility] [address] [id number] [place] [address]- 2547 10 May, 2010 [facility] [place] [facility] [address] [id number] [place] [address] 2544 06 May, 2010 [facility] [place] [facility] [address] [facility] [id number] [place] [address]- 2549 29 Apr, 2010 [facility] [place] [facility] [address] [id number] [place] [address] 2546 26 Apr, 2010 [facility] [place] [facility] [address] [id number] [place] [address] 2543 19 Apr, 2010 [facility] [place] [facility] [address] [id number] [place] [address] 2543 18 Apr, 2010 [facility] [place] [facility] [address] [id number] [place] [address]- 2546 15 Apr, 2010 [facility] [place] [facility] [address] [id number] [place] [address] 2545 Apr, [facility] [id number], [place] [address]- 8414 Apr, [facility] [id number], [place] [address]- 4542 Apr, [facility] [id number], [place] [address]- 1153 Apr, [facility] [id number] [place] [address]- 5809 Apr, [facility] [id number], [place] [address]- 6263 Mar, [facility] [id number], [place] [address]- 3186 Mar, [facility] [id number], [place] [address]- 8288 Mar, [facility] [id number], [place] [address]- 5267 Mar, [facility] [id number], [place] [address]- 6906 Mar, [facility] [id number], [place] [address]- 9801 Dec, [facility] [id number], [place] [address]- 4072 Nov, IMMUNIZATIONS No Known Immunizations SOCIAL HISTORY Never Assessed REASON FOR VISIT f/u PLAN OF CARE Activity Details Follow Up 2 Weeks Reason: VITAL SIGNS MEDICATIONS Unknown Medications RESULTS No Results PROCEDURES Procedure Date Ordered Result Body Site [facility] VISIT MENTAL HEALTH ESTAB PT Mar 04, 2018 Psychotherapy, patient &/family, 45 minutes, established patient Mar 04, 2018 INSTRUCTIONS MEDICATIONS ADMINISTERED No Known Medications [...] surgery and skin graft, cholecysectomy Hospitalization History [facility]2016 [facility]2018
--- OUTSIDE RECORDS SUMMARY | 2018-07-05 14:54 | XMS REPORT ---
Author Author NAHOMY BETH Organization [facility] Address [address] [place] [address] Care Team Providers Care Core Sticker Name Role Phone NAHOMY BETH Unavailable PROBLEMS Type Condition ICD9-CM Code TQY87-NS Code Onset Dates Condition Status SNOMED Code Problem Anemia, unspecified type D64.9 Active 721553498 Problem Personality disorder F60.9 Active 95708173 Problem Factitious disorder imposed on self, recurrent episode F68.10 Active 87017649 Problem Ventral hernia without obstruction or gangrene K43.9 Active 056793227 Problem Allergic state, subsequent encounter T78.40XD Active 981544548 Problem Anxiety F41.9 Active 16782611 Problem Age-related osteoporosis without current pathological fracture M81.0 Active 97467673 Problem Unspecified psychosis not due to a substance or known physiological condition F29 Active 58936404 Problem Iron deficiency anemia, unspecified iron deficiency anemia type D50.9 Active 40388258 Problem History of CVA with residual deficit I69.30 Active 879969423 Problem Seizure disorder G40.909 Active 184422576 Problem Perennial allergic rhinitis, unspecified allergic rhinitis trigger J30.89 Active 479978880 Problem Chronic kidney disease, unspecified stage N18.9 Active 643188139 Problem Back pain M54.9 Active 890234891 Problem Gastroesophageal reflux disease without esophagitis K21.9 Active 987069492 Problem Insomnia, unspecified type G47.00 Active 534617077 Problem History of colon polyps Z86.010 Active 910335801 ALLERGIES No Information ENCOUNTERS Encounter Location Date Diagnosis [facility] [id number] [address] Mar, [facility] [id number], [place] [address] Mar, [facility] [address], [place] [address] 17 Feb, 2018 [facility] [id number] [place] [address] 89365- 6093 Feb, Unspecified psychosis not due to a substance or known physiological condition F29 ; Personality disorder F60.9 and Factitious disorder imposed on self, recurrent episode F68.10 [facility] [id number] [place] [address] 35087- 6518 05 Feb, 2018 Back pain M54.9 [facility] [id number] [place] [address] 46631- 6175 Jan, Unspecified psychosis not due to a substance or known physiological condition F29 ; Personality disorder F60.9 and Factitious disorder imposed on self, recurrent episode F68.10 [facility] [id number] [place] [address] 55207- 4576 Jan, [facility] [id number] [place] [address] 14441- 2270 Jan, Back pain M54.9 and Seizure disorder G40.909 [facility] [id number] [place] [address] 05556- 1754 Jan, Back pain M54.9 [facility] [id number] [place] [address] 39442- 7743 Jan, Back pain M54.9 [facility] [id number] [place] [address] 41971- 9511 Jan, [facility] [id number] [place] [address] 66128- 2221 Jan, Unspecified psychosis not due to a substance or known physiological condition F29 ; Personality disorder F60.9 and Factitious disorder imposed on self, recurrent episode F68.10 [facility] [address], [place] [address] 20[address] Dec, Back pain M54.9 ; Seizure disorder G40.909 ; Ventral hernia without obstruction or gangrene K43.9 and History of CVA with residual deficit I69.30 [facility] [id number] [place] [address] 60587- 2563 Dec, Unspecified psychosis not due to a substance or known physiological condition F29 ; Personality disorder F60.9 and Factitious disorder imposed on self, recurrent episode F68.10 [facility] [id number] [place] [address] 60939- 4998 Dec, [facility] [id number] [place] [address] 67042- 2781 Dec, Back pain M54.9 [facility] [facility] [address] 18179- 1273 Dec, Factitious disorder imposed on self, recurrent episode F68.10 ; Personality disorder F60.9 ; Insomnia, unspecified type G47.00 and Anxiety F41.9 [facility] [id number] [place] [address] 14137- 3887 Nov, Unspecified psychosis not due to a substance or known physiological condition F29 ; Personality disorder F60.9 and Factitious disorder imposed on self, recurrent episode F68.10 [facility] [facility] [id number] [place] [address] 72333- 7719 Nov, Back pain M54.9 [facility] [id number] [place] [address] 34487- 3776 Nov, Unspecified psychosis not due to a substance or known physiological condition F29 ; Personality disorder F60.9 and Factitious disorder imposed on self, recurrent episode F68.10 [facility] [facility] [id number] [place] [address] 27733- 3549 October, [facility] [id number] [place] [address] 42136- 4139 October, [facility] [id number] [place] [address] 25867- 8960 October, Unspecified psychosis not due to a substance or known physiological condition F29 ; Personality disorder F60.9 and Factitious disorder imposed on self, recurrent episode F68.10 [facility] [id number] [place] [address] 86323- 3660 October, Back pain M54.9 [facility] [id number] [place] [address] 87958- 7751 October, Seizure disorder G40.909 ; Back pain M54.9 and Allergic state, subsequent encounter T78.40XD [facility] [id number] [place] [address] 29434- 8362 October, [facility] [id number] [place] [address] 15389- 8101 Sep, Back pain M54.9 [facility] [id number] [place] [address] 90753- 6238 Sep, Unspecified psychosis not due to a substance or known physiological condition F29 ; Personality disorder F60.9 and Factitious disorder imposed on self, recurrent episode F68.10 [facility] [id number] [place] [address] 26112- 6671 Sep, [facility] [id number] [place] [address] 46764- 3797 Sep, [facility] [id number] [place] [address] 28947- 9725 Sep, [facility] [id number] [place] [address] 17264- 8863 Sep, [facility] [address], [place] [address]- 9536 Aug, [facility] [id number] [place] [address] 66233- 6411 Aug, Back pain M54.9 [facility] [address] [place] [address] 80620- 7840 15 Mar, 2018 Factitious disorder imposed on self, recurrent episode F68.10 ; Personality disorder F60.9 ; Insomnia, unspecified type G47.00 and Anxiety F41.9 [facility] [address] [address] Aug, Back pain M54.9 ; Iron deficiency anemia, unspecified iron deficiency anemia type D50.9 ; Chronic kidney disease, unspecified stage N18.9 and Breast cancer screening Z12.31 [facility] [id number] [place] [address] [id number] Jul, Back pain M54.9 [facility] [id number] [place] [address] [id number] Jul, [facility] [id number] [place] [address] [id number] Jul, [facility] [id number] [place] [address] [id number] Jun, Back pain M54.9 [facility] [id number] [id number] Jun, [facility] [id number] [place] [address] [id number] Jun, Back pain M54.9 [facility] [id number] [address] 8176 Jun, Back pain M54.9 ; Seizure disorder G40.909 and Age-related osteoporosis without current pathological fracture M81.0 [facility] [id number] [id number] May, [facility] [address], [place] [address]- 3609 May, Back pain M54.9 [facility] [address] [address] Apr, Back pain M54.9 ; Encounter for immunization Z23 ; Gastroesophageal reflux disease without esophagitis K21.9 ; Age-related osteoporosis without current pathological fracture M81.0 and Chronic pruritus L29.9 [facility] [address] [place] [address] 91490- 5934 16 Apr, 2017 History of CVA with residual deficit I69.30 [facility] [address] [place] [address] 01815- 9579 16 Apr, 2017 Factitious disorder imposed on self, recurrent episode F68.10 and Personality disorder F60.9 [facility] [id number] [place] [address] [id number] Apr, Back pain M54.9 [facility] [id number] [place] [address] 68728- 4909 Mar, Factitious disorder imposed on self, recurrent episode F68.10 [facility] [id number] [place] [address] 71921- 3788 Mar, [facility] [id number] [place] [address] [id number] Mar, [facility] [id number] [place] [address] [id number] Mar, Back pain M54.9 [facility] [id number] [place] [address] 71274- 0720 05 Mar, 2017 Back pain M54.9 ; Seizure disorder G40.909 and Age-related osteoporosis without current pathological fracture M81.0 [facility] [address] [place] [address] 59765- 4171 19 Feb, 2017 History of CVA with residual deficit I69.30 [facility] [address] [place] [address] 85730- 0765 19 Feb, 2017 Factitious disorder imposed on self, recurrent episode F68.10 and Personality disorder F60.9 [facility] [address], [place] [address]- 3749 15 Feb, 2017 Back pain M54.9 [facility] [id number] [place] [address] 65172- 9060 Feb, [facility] [id number], [place] [address]- 8700 Jan, [facility] [address] [place] [id number] Jan, Age- related osteoporosis without current pathological fracture M81.0 and Allergic state, subsequent encounter T78.40XD [facility] [id number], [place] [address]- 3596 Jan, Factitious disorder imposed on self, recurrent episode F68.10 and Personality disorder F60.9 [facility] [id number], [place] [address]- 6889 Dec, Back pain M54.9 [facility] [id number], [place] [address] 1961 Dec, Personality disorder F60.9 and Factitious disorder imposed on self, recurrent episode F68.10 [facility] [id number] [id number] Dec, Back pain M54.9 [facility] [id number] [place] [address] [id number] Dec, [facility] [id number] [id number] Dec, [facility] [id number], [place] [address]- 2861 Dec, [facility] [address], [place] [address]- 6141 Nov, [facility] [id number], [place] [address]- 9154 Nov, Back pain M54.9 ; Anemia, unspecified type D64.9 and History of colon polyps Z86.010 [facility] [id number], [place] [address]- 8987 Nov, Back pain M54.9 [facility] [id number] [id number] October, Back pain M54.[address] [id number] October, Back pain M54.9 and Gastroesophageal reflux disease without esophagitis K21.9 [facility] [address] [id number] [id number] Sep, [facility] [address] [address] 3575 Sep, [facility] [id number] [address] 9046 Sep, [facility] [address], [place] [address]- 4812 Sep, [facility] [address], [place] [address]- 2590 Sep, [facility] [address], [place] [address]- 8763 Sep, Seizure disorder G40.909 [facility] [id number], [place] [address]- 2166 Sep, Back pain M54.9 [facility] [id number], [place] [address]- 3876 Sep, [facility] [address], [place] [address]- 4096 Aug, Back pain M54.9 [facility] [id number], [place] [address] 2546 29 Aug, 2016 Seizure disorder G40.909 [facility] [address] [id number] [id number] Aug, [facility] [address] [id number] [address] 16 Aug, 2016 Back pain M54.9 [facility] [address] [id number] [id number] Aug, Back pain M54.9 [facility] [id number] [id number] Aug, Back pain M54.9 [facility] [address] [place] [id number] Jul, Weakness R53.1 [facility] [address] [place] [address] 11063- 1766 Jul, Seizure disorder G40.909 [facility] [id number] [place] [address] 72126- 8734 Jul, [facility] [id number] [place] [address] 59443- 9638 Jul, Breast cancer screening Z12.39 [facility] [id number] [place] [address] 78590- 1745 Jul, [facility] [id number] [place] [address] 17178- 7564 Jul, [facility] [id number] [place] [address] 97400- 0998 Jul, [facility] [address] [place] [address] 14207- 1461 Jul, Seizure disorder G40.909 ; Fatigue, unspecified type R53.83 ; Perennial allergic rhinitis, unspecified allergic rhinitis trigger J30.89 and Chronic kidney disease, unspecified stage N18.9 [facility] [address], [place] [address]- 7344 Jul, [facility] [id number] [place] [address] 78072- 6644 Jul, Seizure disorder G40.909 [facility] [address], [place] [address]- 4483 Jun, [facility] [id number] [place] [address] 06853- 5676 Jun, [facility] [address] [place] [id number] Jun, Perennial allergic rhinitis, unspecified allergic rhinitis trigger J30.89 [facility] [id number] [place] [address] [id number] Jun, [facility] [id number] [place] [address] 20501- 3174 Jun, Seizure disorder G40.909 [facility] [id number] [place] [address] [id number] Jun, [facility] [id number] [place] [address] [id number] May, [facility] [id number] [place] [address] 33690- 4645 May, [facility] [id number] [place] [address] 90579- 6385 May, [facility] [address] [place] [address] 24224- 3460 May, [facility] [address] [place] [address] 06848- 9667 May, History of CVA with residual deficit I69.30 [facility] [address] [place] [address] 19737- 6620 May, [facility] [address] [place] [address] 92452- 1288 May, [facility] [id number] [place] [address] 12783- 3238 May, [facility] [id number] [place] [address] 05090- 3108 May, Seizure disorder G40.909 [facility] [address], [place] [address]- 9853 May, [facility] [address] [place] [address] May, Back pain M54.9 and Seizure disorder G40.909 [facility] [address] [facility] [id number] [address]- 0844 Apr, [facility] [id number] [place] [address] 22009- 5652 Apr, Back pain M54.9 [facility] [id number] [place] [address] 04178- 8922 Mar, [employer] [address] [place] [address] Mar, Insomnia, unspecified type G47.00 [facility] [address] [facility] [id number] [place] [address] 50282- 9201 Mar, [facility] [id number] [place] [address] 99765- 3401 Feb, [facility] [id number] [place] [address] 57711- 6032 Feb, [facility] [id number] [place] [address] 39673- 0883 Feb, [facility] [id number] [place] [address] 43642- 0744 Jan, [facility] [address] [place] [address] 46018- 9812 Jan, [employer] [address] [place] [address] Jan, Seizure disorder G40.909 and Back pain M54.9 [facility] [address] [facility] [id number] [place] [address] 67048- 5052 Dec, [facility] [address] [facility] [id number] [place] [address] 88234- 9947 Dec, [facility] [id number] [place] [address] 01860- 9776 Dec, [facility] [id number] [place] [address] 83946- 6054 Nov, [facility] [id number] [place] [address] 14959- 7096 Nov, [facility] [id number] [place] [address] 04534- 2746 Nov, Back pain M54.9 [facility] [id number] [place] [address] 44291- 9897 October, [facility] [id number] [place] [address] 88409- 3833 October, Back pain M54.9 [facility] [id number] [place] [address] 54703- 3923 October, Seizure disorder G40.909 and B12 deficiency E53.8 [facility] [id number] [place] [address] 47588- 5432 Sep, History of CVA with residual deficit I69.30 [facility] [id number] [place] [address] 61681- 3268 Sep, [facility] [id number] [place] [address] 73276- 6258 Sep, [facility] [id number] [place] [address] 47515- 8215 Sep, Back pain M54.9 [facility] [id number] [place] [address] 00845- 2541 Sep, Seizure disorder G40.909 [facility] [id number] [place] [address] 00643- 9226 Aug, Back pain M54.9 [facility] [id number] [place] [address] 47250- 0016 Aug, Seizure disorder G40.909 [facility] [id number] [place] [address] 24695- 9436 Aug, Back pain M54.9 [facility] [id number] [place] [address] 11582- 0719 14 Aug, 2015 Heart failure, unspecified I50.9 [facility] [id number] [place] [address] 00700- 9946 14 Aug, 2015 Medication monitoring encounter Z51.81 [facility] [id number] [place] [address] 98935- 9476 15 Jul, 2015 [facility] [id number] [place] [address] 90034- 0000 09 Jul, 2015 Seizure disorder G40.909 [facility] [id number] [place] [address] 09575- 1063 05 Jul, 2015 Back pain M54.9 [facility] [id number] [place] [address] 85528- 6372 Jun, [facility] [id number] [place] [address] 72316- 7266 Jun, [facility] [id number] [place] [address] 54768- 5594 Jun, Mental status change R41.82 ; History of CVA with residual deficit I69.30 ; Back pain M54.9 and Seizure disorder G40.909 [place] [id number] [place] [address] 40883- 7294 Jun, [place] [id number] [place] [address] 00644- 7907 May, [facility] [id number] [place] [address] 00291- 7975 Apr, [facility] [id number] [place] [address] 23013- 0677 Apr, Medication monitoring encounter Z51.81 [place] [id number] [place] [address] 86754- 7146 Mar, Vomiting R11.10 [facility] [place] [facility] [address] [id number] [place] [address]- 1692 Mar, [facility] [address] [id number] [place] [address]- 9123 18 Feb, 2015 [facility] [place] [facility] [address] [id number] [place] [address]- 1802 Feb, UTI (urinary tract infection) 599.0 [facility] [address] [id number] [place] [address] Jan, [facility] [address] [id number] [place] [address] Jan, [facility] [address] [id number] [place] [address] Jan, [facility] [address] [id number] [place] [address] Dec, [facility] [address] [id number] [place] [address] Dec, [facility] [place] [facility] [address] [id number] [place] [address] Dec, [facility] [address] [id number] [place] [address] Dec, [facility] [address] [id number] [place] [address] Nov, UNKNOWN Nov, [facility] [place] [facility] [address] [id number] [place] [address] October, [facility] [place] [facility] [address] [id number] [place] [address] 14 Sep, 2014 [facility] [place] [facility] [address] [id number] [place] [address] Sep, [facility] [place] [facility] [address] [id number] [place] [address] Aug, [facility] [place] [facility] [address] [id number] [place] [address] Aug, [facility] [place] [facility] [address] [id number] [place] [address] Jul, [facility] [place] [facility] [address] [id number] [place] [address] 2546 Jul, 2014 [facility] [place] [facility] [address] [id number] [place] [address] 9486 Jul, 2014 [facility] [place] [facility] [address] [id number] [place] [address]- 3569 Jul, [facility] [place] [facility] [address] [id number] [place] [address] 9686 Jul, [facility] [place] [facility] [address] [id number] [place] [address] 42[address] Jun, [facility] [place] [facility] [address] [id number] [place] [address] 0670 Jun, [facility] [place] [facility] [address] [id number] [place] [address]- 3196 Jun, [facility] [place] [facility] [address] [id number] [place] [address]- 9749 Jun, [facility] [place] [facility] [address] [id number] [place] [address]- 5184 Jun, [facility] [place] [facility] [address] [id number] [place] [address] 8278 Jun, [facility] [place] [facility] [address] [id number] [place] [address] 2008 Jun, [facility] [place] [facility] [address] [id number] [place] [address]- 8384 Jun, [facility] [place] [facility] [address] [id number] [place] [address] 2546 Jun, [facility] [place] [facility] [address] [id number] [place] [address]- 7697 Jun, [facility] [place] [facility] [address] [id number] [place] [address]- 8699 Jun, [facility] [place] [facility] [address] [id number] [place] [address]- 1182 Jun, [facility] [place] [facility] [address] [id number] [place] [address]- 9946 Jun, [facility] [place] [facility] [address] [id number] [place] [address]- 2543 Jun, [facility] [place] [facility] [address] [id number] [place] [address]- 6617 Jun, [facility] [place] [facility] [address] [id number] [place] [address]- 6652 Jun, [facility] [place] [facility] [address] [id number] [place] [address]- 2759 Jun, [facility] [place] [facility] [address] [id number] [place] [address]- 2241 Jun, [facility] [place] [facility] [address] [id number] [place] [address]- 2566 May, [facility] [place] [facility] [address] [id number] [place] [address]- 8706 30 May, 2014 [facility] [place] [facility] [address] [id number] [place] [address]- 5513 30 May, 2014 [facility] [place] [facility] [address] [id number] [place] [address]- 4638 30 May, 2014 [facility] [place] [facility] [address] [id number] [place] [address]- 4410 19 May, 2014 [facility] [place] [facility] [address] [id number] [place] [address]- 4155 16 May, 2014 [facility] [place] [facility] [address] [id number] [place] [address]- 0009 May, [facility] [place] [facility] [address] [id number] [place] [address]- 3279 May, [facility] [address] [id number] [place] [address]- 3703 May, [facility] [address] [place] [id number] May, [facility] [place] [facility] [address] [id number] [place] [address]- 3975 May, [facility] [place] [facility] [address] [id number] [place] [address]- 2211 May, [facility] [place] [facility] [address] [id number] [place] [address]- 5082 May, [facility] [place] [facility] [address] [id number] [place] [address]- 2590 Apr, [facility] [place] [facility] [address] [id number] [place] [address]- 3098 Apr, [facility] [place] [facility] [address] [id number] [place] [address]- 7987 Apr, [facility] [place] [facility] [address] [id number] [place] [address]- 6446 Apr, [facility] [place] [facility] [address] [id number] [place] [address]- 7204 Apr, [facility] [place] [facility] [address] [id number] [place] [address]- 9259 Apr, [facility] [place] [facility] [address] [id number] [place] [address]- 1593 Mar, [facility] [place] [facility] [address] [id number] [place] [address]- 2622 Mar, [facility] [place] [facility] [address] [id number] [place] [address]- 2753 Mar, [facility] [place] [facility] [address] [id number] [place] [address]- 2040 Mar, [facility] [place] [facility] [address] [id number] [place] [address]- 6060 Mar, [facility] [address] [id number] [place] [address]- 4776 Mar, [facility] [address] [id number] [place] [address]- 7473 24 Feb, 2014 [facility] [address] [id number] [place] [address]- 8671 24 Feb, 2014 [facility] [address] [id number] [place] [address]- 8978 Feb, [facility] [address] [id number] [place] [address]- 7374 Feb, [facility] [address] [id number] [place] [address]- 3013 Feb, [facility] [address] [id number] [place] [address]- 1285 Feb, [facility] [address] [id number] [place] [address]- 9986 Feb, [facility] [address] [id number] [place] [address]- 1723 Feb, [facility] [address] [id number] [place] [address]- 1445 Feb, [facility] [address] [id number] [place] [address]- 2541 Feb, [facility] [address] [place] [id number] Feb, [facility] [address] [id number] [place] [address]- 5722 Feb, [facility] [address] [id number] [place] [address]- 2918 Jan, [facility] [address] [id number] [place] [address]- 5422 Jan, [facility] [place] [facility] [address] [id number] [place] [address]- 0617 Dec, 2013 [facility] [place] [facility] [address] [id number] [place] [address]- 6808 Dec, [facility] [place] [facility] [address] [id number] [place] [address]- 0920 Dec, [facility] [place] [facility] [address] [id number] [place] [address]- 9563 Dec, [facility] [place] [facility] [address] [id number] [place] [address]- 7060 Dec, [facility] [place] [facility] [address] [id number] [place] [address]- 8521 Dec, [facility] [place] [facility] [address] [id number] [place] [address]- 9746 Dec, [facility] [place] [facility] [address] [id number] [place] [address]- 8196 Dec, [facility] [place] [facility] [address] [id number] [place] [address]- 7150 Dec, [facility] [place] [facility] [address] [id number] [place] [address]- 3003 Dec, [facility] [place] [facility] [address] [id number] [place] [address]- 9637 Nov, [facility] [place] [facility] [address] [id number] [place] [address]- 4885 Nov, [facility] [place] [facility] [address] [id number] [place] [address]- 9369 Nov, [facility] [place] [facility] [address] [id number] [place] [address]- 4485 Nov, [facility] [place] [facility] [address] [id number] [place] [address]- 0947 Nov, [facility] [place] [facility] [address] [id number] [place] [address]- 8285 Nov, [facility] [place] [facility] [address] [id number] [place] [address]- 9095 Nov, [facility] [place] [facility] [address] [id number] [place] [address]- 8492 Nov, [facility] [place] [facility] [address] [id number] [place] [address]- 0491 Nov, [facility] [place] [facility] [address] [id number] [place] [address]- 7006 Nov, [facility] [place] [facility] [address] [id number] [place] [address]- 9885 Nov, [facility] [place] [facility] [address] [id number] [place] [address]- 6232 Nov, [facility] [place] [facility] [address] [id number] [place] [address]- 1332 Nov, [facility] [place] [facility] [address] [id number] [place] [address]- 4363 Nov, [facility] [place] [facility] [address] [id number] [place] [address]- 2825 October, [facility] [place] [facility] [address] [id number] [place] [address]- 2869 October, [facility] [place] [facility] [address] [id number] [place] [address]- 2612 October, [facility] [place] [facility] [address] [id number] [place] [address]- 5117 October, [facility] [place] [facility] [address] [id number] [place] [address]- 2723 October, [facility] [place] [facility] [address] [id number] [place] [address]- 3886 October, [facility] [place] [facility] [address] [id number] [place] [address]- 5794 October, [facility] [place] [facility] [address] [id number] [place] [address]- 5214 October, [facility] [address] [id number] [place] [address]- 1207 October, [facility] [address] [id number] [place] [address]- 2917 October, [facility] [address] [id number] [place] [address]- 9322 Sep, [facility] [address] [id number] [place] [address]- 1839 Sep, [facility] [address] [id number] [place] [address]- 5265 Sep, [facility] [address] [id number] [place] [address]- 4880 Sep, [facility] [address] [id number] [place] [address]- 8901 Sep, [facility] [address] [id number] [place] [address]- 5025 Sep, [facility] [address] [id number] [place] [address]- 8941 Sep, [facility] [address] [id number] [place] [address]- 9948 Sep, [facility] [place] [facility] [address] [id number] [place] [address]- 8902 Sep, [facility] [address] [id number] [place] [address]- 9090 Sep, [facility] [place] [facility] [address] [id number] [place] [address]- 9188 Aug, [facility] [place] [facility] [address] [id number] [place] [address]- 9999 Aug, [facility] [place] [facility] [address] [id number] [place] [address]- 9964 Aug, [facility] [place] [facility] [address] [id number] [place] [address]- 4449 10 Aug, 2013 [facility] [place] [facility] [address] [id number] [place] [address]- 1942 Aug, [facility] [place] [facility] [address] [id number] [place] [address]- 2021 Aug, [facility] [place] [facility] [address] [id number] [place] [address]- 0476 Aug, [facility] [place] [facility] [address] [id number] [place] [address]- 3696 Aug, [facility] [place] [facility] [address] [id number] [place] [address]- 4372 Aug, [facility] [place] [facility] [address] [id number] [place] [address]- 1588 Jul, [facility] [place] [facility] [address] [id number] [place] [address]- 6963 Jul, [facility] [place] [facility] [address] [id number] [place] [address]- 3915 Jul, [facility] [place] [facility] [address] [facility] [id number] [place] [address]- 5889 Jul, [facility] [place] [facility] [address] [id number] [place] [address]- 0356 Jul, [facility] [place] [facility] [address] [id number] [place] [address]- 8819 Jul, [facility] [place] [facility] [address] [id number] [place] [address]- 2385 Jul, [facility] [place] [facility] [address] [id number] [place] [address]- 2821 Jul, [facility] [place] [facility] [address] [facility] [id number] [place] [address]- 6906 Jul, [facility] [place] [facility] [address] [id number] [place] [address]- 2624 17 Jul, 2013 [facility] [place] [facility] [address] [id number] [place] [address]- 4560 Jul, [facility] [place] [facility] [address] [id number] [place] Jul, [facility] [place] [facility] [address] [id number] [place] [address]- 5356 Jul, [facility] [place] [facility] [address] [id number] [place] [address]- 7117 Jul, [facility] [place] [facility] [address] [id number] [place] [address]- 3381 Jul, [facility] [place] [facility] [address] [id number] [place] [address]- 6312 Jul, [facility] [place] [facility] [address] [id number] [place] [address]- 0559 Jun, [facility] [place] [facility] [address] [id number] [place] [address]- 3294 Jun, [facility] [place] [facility] [address] [id number] [place] [address]- 4882 Jun, [facility] [place] [facility] [address] [id number] [place] [address]- 3868 Jun, [facility] [place] [facility] [address] [id number] [place] [address]- 3759 Jun, [facility] [place] [facility] [address] [id number] [place] [address]- 6662 Jun, [facility] [place] [facility] [address] [id number] [place] [address]- 6024 May, [facility] [place] [facility] [address] [id number] [place] [address]- 1519 May, [facility] [place] [facility] [address] [id number], [place] [address]- 6313 May, [facility] [place] [facility] [address] [id number] [place] [address]- 5162 May, [facility] [place] [facility] [address] [id number], [place] [address]- 9439 Apr, [facility] [place] [facility] [address] [id number], [place] [address]- 2864 Apr, [facility] [place] [facility] [address] [id number], [place] [address]- 7704 Apr, [facility] [place] [facility] [address] [id number] [place] [address]- 8035 Apr, [facility] [place] [facility] [address] [id number], [place] [address]- 1631 Apr, [facility] [place] [facility] [address] [id number], [place] [address]- 4852 Apr, [facility] [place] [facility] [address] [id number], [place] [address]- 7595 Apr, [facility] [place] [facility] [address] [id number], [place] [address]- 0747 Apr, [facility] [place] [facility] [address] [id number], [place] [address]- 8746 Apr, [facility] [place] [facility] [address] [id number], [place] [address]- 6293 Apr, [facility] [place] [facility] [address] [id number], [place] [address]- 4160 Apr, [facility] [place] [facility] [address] [id number], [place] [address]- 9375 Apr, [facility] [place] [facility] [address] [id number], [place] [address]- 0620 Mar, [facility] [place] [facility] [address] [id number], [place] [address]- 2049 Mar, [facility] [place] [facility] [address] [id number] [place] [address]- 6123 16 Mar, 2012 [facility] [address] [id number] [place] [address]- 3987 16 Mar, 2013 [facility] [place] [facility] [address] [id number] [place] [address]- 2546 15 Mar, 2013 [facility] [address] [id number] [place] [address]- 0987 15 Mar, 2013 [facility] [place] [facility] [address] [id number] [place] [address] 2548 27 Feb, 2012 [facility] [address] [id number] [place] [address]- 6483 25 Feb, 2013 [facility] [address] [id number] [place] [address]- 3860 25 Feb, 2012 [facility] [place] [facility] [address] [id number] [place] [address]- 2541 23 Feb, 2012 [facility] [address] [id number] [place] [address]- 7094 17 Feb, 2013 [facility] [place] [facility] [address] [id number] [place] [address]- 6828 10 Feb, 2013 [facility] [address] [id number] [place] [address]- 2549 04 Feb, 2013 [facility] [place] [facility] [address] [id number] [place] [address] 2545 30 Jan, 2013 [facility] [place] [facility] [address] [id number] [place] [address]- 2547 20 Jan, 2013 [facility] [place] [facility] [address] [id number] [place] [address]- 7358 15 Jan, 2013 [facility] [place] [facility] [address] [id number] [place] [address]- 2544 14 Jan, 2013 [facility] [place] [facility] [address] [id number] [place] [address]- 1019 Jan, [facility] [address] [id number] [place] [address]- 2032 Jan, [facility] [place] [facility] [address] [id number] [place] [address]- 2056 Jan, [facility] [place] [facility] [address] [id number] [place] [address]- 2950 Dec, [facility] [place] [facility] [address] [id number] [place] [address]- 6066 Dec, [facility] [place] [facility] [address] [id number] [place] [address]- 8863 Dec, [facility] [place] [facility] [address] [id number] [place] [address]- 4380 Dec, [facility] [place] [facility] [address] [id number] [place] [address]- 4042 Dec, [facility] [place] [facility] [address] [id number] [place] [address]- 6002 Dec, [facility] [place] [facility] [address] [id number] [place] [address]- 9577 Nov, [facility] [place] [facility] [address] [id number] [place] [address]- 0420 Nov, [facility] [place] [facility] [address] [id number] [place] [address]- 2186 Nov, [facility] [place] [facility] [address] [id number] [place] [address]- 4713 Nov, [facility] [place] [facility] [address] [id number] [place] [address]- 0101 October, [facility] [place] [facility] [address] [id number] [place] [address]- 4676 October, [facility] [place] [facility] [address] [id number] [place] [address]- 2346 October, [facility] [place] [facility] [address] [id number], [place] [address] October, [facility] [address] [id number] [place] [address] 30 Sep, 2012 [facility] [address] [id number] [place] [address] Sep, [facility] [address] [id number] [place] [address] 16 Sep, 2012 [facility] [address] [id number] [place] [address] Sep, [facility] [address] [id number] [place] [address] Sep, [facility] [address] [id number] [place] [address] Sep, [facility] [address] [id number] [address] Sep, [facility] [address] [id number] [place] [address] Sep, [facility] [address] [id number] [place] [address] Aug, [facility] [address] [facility] [id number] [place] [address] Aug, [facility] [address] [id number] [place] [address] 05 Aug, 2012 [facility] [address] [id number] [place] [address] 18 Jul, 2012 [facility] [place] [facility] [address] [id number] [place] [address] 08 Jul, 2012 [facility] [place] [facility] [address] [id number] [place] [address] 07 Jul, 2012 [facility] [address] [facility] [id number] [address] 06 Jul, 2012 [facility] [address] [id number] [place] [address] Jul, [facility] [place] [facility] [address] [id number] [place] [address] Jun, [facility] [place] [facility] [address] [id number] [place] [address] Jun, [facility] [address] [id number] [place] [address] Jun, [facility] [address] [id number] [place] [address] May, [facility] [address] [id number] [place] [address] 8527 May, [facility] [address] [id number] [place] [address]68 May, [facility] [address] [id number] [place] [address] May, [facility] [place] [facility] [address] [id number] [place] [address] 33[address] May, [facility] [address] [id number] [place] [address] May, [facility] [place] [facility] [address] [id number] [place] [address] May, [facility] [facility] [address] [id number] [place] [address] Apr, [facility] [place] [facility] [address] [id number] [place] [address] 46[address] Apr, [facility] [place] [facility] [address] [id number] [place] [address] Apr, [facility] [place] [facility] [address] [id number] [place] [address] Apr, [facility] [place] [facility] [address] [id number] [place] [address] Apr, [facility] [place] [facility] [address] [id number] [place] [address] 24[address] Apr, [facility] [place] [facility] [address] [id number] [place] [address] Apr, [facility] [place] [facility] [address] [id number] [place] [address] Apr, [facility] [place] [facility] [address] [id number] [place] [address] 9967 Apr, [facility] [place] [facility] [address] [id number] [place] [address]137 Apr, [facility] [place] [facility] [address] [id number] [place] [address] 89[address] Apr, [facility] [place] [facility] [address] [id number] [place] [address]- [address] Mar, [facility] [place] [facility] [address] [id number] [place] [address]- [address] Mar, [facility] [place] [facility] [address] [id number] [place] [address]990 Mar, [facility] [place] [facility] [address] [id number] [place] [address] 4630 Mar, [facility] [place] [facility] [address] [id number], [place] [address] Mar, [facility] [place] [facility] [address] [id number], [place] [address] Mar, [facility] [place] [facility] [address] [id number] [place] [address]- [address] Mar, [facility] [place] [facility] [address] [id number], [place] [address] Mar, [facility] [place] [facility] [address] [id number] [place] [address] 8284 16 Mar, 2012 [facility] [place] [facility] [address] [id number] [place] [address]- 9071 16 Mar, 2012 [facility] [place] [facility] [address] [id number] [place] [address]- 7691 04 Mar, 2012 [facility] [place] [facility] [address] [id number] [place] [address] 2011 [facility] [place] [facility] [address] [id number] [place] [address]- 1786 27 Sep, 2011 [facility] [place] [facility] [address] [id number] [place] [address]- 6099 27 Feb, 2011 [facility] [place] [facility] [address] [id number] [place] [address]- [address]161 26 Feb, 2011 [facility] [place] [facility] [address] [id number] [place] [address]- 7064 24 Feb, 2011 [facility] [place] [facility] [address] [id number] [place] [address]- 3031 19 Feb, 2011 [facility] [address] [id number] [place] [address]- 5084 18 Feb, 2012 [facility] [place] [facility] [address] [id number] [place] [address]- 9493 18 Feb, 2012 [facility] [address] [id number] [place] [address]- 3127 18 Feb, 2012 [facility] [place] [facility] [address] [id number] [place] [address]- 2549 Jan, [facility] [place] [facility] [address] [id number] [place] [address]- 2542 Jan, [facility] [place] [facility] [address] [id number] [place] [address]- 9275 Jan, [facility] [place] [facility] [address] [id number] [place] [address]- 3750 Jan, [facility] [place] [facility] [address] [id number] [place] [address]- 5290 Dec, [facility] [place] [facility] [address] [id number] [place] [address]- 9994 Dec, [facility] [place] [facility] [address] [id number] [place] [address]- 4759 Dec, [facility] [place] [facility] [address] [id number] [place] [address]- 8323 Dec, [facility] [place] [facility] [address] [id number] [place] [address]- 4880 Dec, [facility] [place] [facility] [address] [id number] [place] [address]- 8558 Dec, [facility] [place] [facility] [address] [id number] [place] [address]- 6891 Dec, [facility] [place] [facility] [address] [id number] [place] [address]- 4492 Dec, [facility] [place] [facility] [address] [id number] [place] [address]- 9228 Dec, [facility] [place] [facility] [address] [id number] [place] [address] Dec, [facility] [place] [facility] [address] [id number] [place] [address] Dec, [facility] [place] [facility] [address] [id number] [place] [address] Dec, [facility] [place] [facility] [address] [id number] [place] [address] Dec, [facility] [place] [facility] [address] [id number] [place] [address] Dec, [facility] [place] [facility] [address] [id number] [place] [address] Nov, [facility] [place] [facility] [address] [id number] [place] [address] Nov, [facility] [place] [facility] [address] [id number] [place] [address] Nov, [facility] [address] [id number] [place] [address] Nov, [facility] [place] [facility] [address] [id number] [place] [address] Nov, [facility] [address] [facility] [id number] [place] [address] Nov, [facility] [address] [id number] [place] [address] October, [facility] [address] [id number] [place] [address] October, [facility] [address] [id number] [place] [address] October, [facility] [address] [id number] [place] [address] October, [facility] [address] [id number] [place] [address] Sep, [facility] [address] [id number] [place] [address] 17 Sep, 2011 [facility] [address] [facility] [id number] [place] [address] 13 Sep, 2011 [facility] [address] [id number] [place] [address] Sep, [facility] [place] [facility] [address] [id number] [place] [address] Sep, [facility] [place] [facility] [address] [id number] [place] [address] Aug, [facility] [place] [facility] [address] [id number] [place] [address]36 Aug, [facility] [place] [facility] [address] [facility] [id number] [place] [address]398 Aug, [facility] [place] [facility] [address] [id number] [place] [address] Aug, [facility] [address] [id number] [place] [address] Aug, [facility] [address] [id number] [place] [address] Aug, [facility] [address] [id number] [place] [address] Aug, [facility] [address] [id number] [place] [address] Jul, [facility] [address] [facility] [id number] [place] [address] Jul, [facility] [address] [facility] [id number] [place] [address] Jul, [facility] [address] [facility] [id number] [place] [address] 4681 Jul, [facility] [address] [facility] [id number] [place] [address] Jun, [address] [id number] Jun, [facility] [address] [facility] [id number] [address] Jun, [facility] [address] [facility] [id number], [place] [address] Jun, [facility] [address] [facility] [id number], [place] [address] Jun, [facility] [address] [facility] [id number] [place] [address]76 Jun, [facility] [address] [facility] [id number] [place] [address]- 65[address] Jun, [facility] [address] [facility] [id number] [place] [address]366 Jun, [facility] [place] [facility] [address] [id number] [place] [address]01 May, [facility] [place] [facility] [address] [id number] [place] [address] 2152 May, [facility] [place] [facility] [address] [id number] [place] [address]- 5346 May, [facility] [place] [facility] [address] [id number] [place] [address]- 2907 May, [facility] [place] [facility] [address] [id number] [place] [address] 3424 May, [facility] [place] [facility] [address] [id number] [place] [address]- 9518 May, [facility] [place] [facility] [address] [id number] [place] [address]- 8068 May, [facility] [place] [facility] [address] [id number], [place] [address] 6[address] Apr, [facility] [place] [facility] [address] [id number] [place] [address]- 9727 Apr, [facility] [place] [facility] [address] [id number], [place] [address] 2089 Apr, [facility] [place] [facility] [address] [id number], [place] [address] Mar, [facility] [place] [facility] [address] [id number], [place] [address] 6[address] Mar, [facility] [place] [facility] [address] [id number], [place] [address]- [address]158 14 Mar, 2011 [facility] [place] [facility] [address] [id number], [place] [address]100 Mar, [facility] [place] [facility] [address] [id number], [place] [address]- 7068 10 Mar, 2011 [facility] [place] [facility] [address] [id number], [place] [address]- 7614 10 Mar, 2011 [facility] [address] [id number] [place] [address]- 8085 10 Mar, 2011 [facility] [place] [facility] [address] [id number] [place] [address]- 7856 11 Jan, 2011 [facility] [address] [facility] [id number] [place] [address] 2416 27 May, 2010 [facility] [place] [facility] [address] [id number] [place] [address]- 3524 21 May, 2010 [facility] [address] [id number] [place] [address], [place] [address]- 8184 13 May, 2010 [facility] [place] [facility] [address] [id number] [place] [address]- 5699 May, [facility] [address] [facility] [id number] [place] [address]- 0876 May, [facility] [place] [facility] [address] [id number] [place] [address]- 2057 06 May, 2010 [facility] [place] [facility] [address] [id number] [address]- [address] 29 Apr, 2010 [facility] [place] [facility] [address] [facility] [id number] [place] [address]- 8938 26 Apr, 2010 [facility] [place] [facility] [address] [id number], [place] [address]- 4694 Apr, [facility] [place] [facility] [address] [id number], [place] [address]- 2549 18 Apr, 2010 [facility] [place] [facility] [address] [id number], [place] [address]- 3950 15 Apr, 2010 [facility] [place] [facility] [address] [facility] [id number], [place] [address]- [address]491 12 Apr, 2010 [facility] [place] [facility] [address] [facility] [id number], [place] [address]- 7023 12 Apr, 2010 [facility] [place] [facility] [id number], [place] [address] Apr, [facility] [id number], [place] [address] 7120 Apr, [facility] [id number], [place] [address] 8684 Apr, [facility] [id number], [place] [address] 4770 Mar, [facility] [id number], [place] [address]- 2870 Mar, [facility] [id number] [place] [address]- [address] Mar, [facility] [id number], [place] [address]- 4373 Mar, [facility] [id number], [place] [address]- 7989 Mar, [facility] [id number], [place] [address]- 9834 Dec, [facility] [id number], [place] [address] Nov, IMMUNIZATIONS No Known Immunizations SOCIAL HISTORY Never Assessed REASON FOR VISIT PA needed for Fentanyl PLAN OF CARE VITAL SIGNS MEDICATIONS Unknown [...] surgery and skin graft, cholecysectomy Hospitalization History [facility] 12/2016 [facility]2017 Hospitalization History [facility] 01/2018
--- OUTSIDE RECORDS SUMMARY | 2018-07-05 14:55 | XMS REPORT ---
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 Manager Name Role Phone IRENE PATEL Unavailable PROBLEMS Type Condition ICD9-CM Code SHN65-LJ Code Onset Dates Condition Status SNOMED Code Problem Anemia, unspecified type D64.9 Active 984585172 Problem Personality disorder F60.9 Active 87399944 Problem Factitious disorder imposed on self, recurrent episode F68.10 Active 92017075 Problem Ventral hernia without obstruction or gangrene K43.9 Active 662677884 Problem Allergic state, subsequent encounter T78.40XD Active 307100089 Problem Anxiety F41.9 Active 07553397 Problem Age-related osteoporosis without current pathological fracture M81.0 Active 68512984 Problem Unspecified psychosis not due to a substance or known physiological condition F29 Active 17989858 Problem Iron deficiency anemia, unspecified iron deficiency anemia type D50.9 Active 16016878 Problem History of CVA with residual deficit I69.30 Active 788446594 Problem Seizure disorder G40.909 Active 882121676 Problem Perennial allergic rhinitis, unspecified allergic rhinitis trigger J30.89 Active 014540635 Problem Chronic kidney disease, unspecified stage N18.9 Active 486558367 Problem Back pain M54.9 Active 721157725 Problem Gastroesophageal reflux disease without esophagitis K21.9 Active 201580278 Problem Insomnia, unspecified type G47.00 Active 516826981 Problem History of colon polyps Z86.010 Active 601445926 ALLERGIES No Information ENCOUNTERS Encounter Location Date Diagnosis [facility] [id number] [address] Mar, [facility] [id number] [address] Mar, [facility] [address] [address] 17 Feb, 2018 [facility] [id number] [place] [address] 96895- 5852 Feb, Unspecified psychosis not due to a substance or known physiological condition F29 ; Personality disorder F60.9 and Factitious disorder imposed on self, recurrent episode F68.10 [facility] [id number] [place] [address] 90452- 8801 05 Feb, 2018 Back pain M54.9 [facility] [place] [id number] [place] [address] 28078- 8786 Jan, Unspecified psychosis not due to a substance or known physiological condition F29 ; Personality disorder F60.9 and Factitious disorder imposed on self, recurrent episode F68.10 [facility] [place] [id number] [place] [address] 12462- 4068 Jan, [facility] [place] [id number] [place] [address] 95228- 0778 Jan, Back pain M54.9 and Seizure disorder G40.909 [facility] [place] [id number] [place] [address] 25621- 3612 Jan, Back pain M54.9 [facility] [place] [address] [address] Jan, Back pain M54.9 [facility] [place] [id number] [place] [address] 86138- 0747 Jan, [facility] [place] [address] [address] Jan, Unspecified psychosis not due to a substance or known physiological condition F29 ; Personality disorder F60.9 and Factitious disorder imposed on self, recurrent episode F68.10 [facility] [place] [address] [address] Dec, Back pain M54.9 ; Seizure disorder G40.909 ; Ventral hernia without obstruction or gangrene K43.9 and History of CVA with residual deficit I69.30 [address] [id number] [place] [address] 01968- 9798 Dec, Unspecified psychosis not due to a substance or known physiological condition F29 ; Personality disorder F60.9 and Factitious disorder imposed on self, recurrent episode F68.10 [facility] [id number] [place] [address] 60740- 9821 Dec, [facility] [id number] [place] [address] 83990- 4281 Dec, Back pain M54.9 [facility] [id number] [place] [address] 74411- 4645 Dec, Factitious disorder imposed on self, recurrent episode F68.10 ; Personality disorder F60.9 ; Insomnia, unspecified type G47.00 and Anxiety F41.9 [facility] [id number] [place] [address] 44151- 5834 Nov, Unspecified psychosis not due to a substance or known physiological condition F29 ; Personality disorder F60.9 and Factitious disorder imposed on self, recurrent episode F68.10 [facility] [id number] [place] [address] 82784- 6560 Nov, Back pain M54.9 [facility] [id number] [place] [address] 35024- 0048 Nov, Unspecified psychosis not due to a substance or known physiological condition F29 ; Personality disorder F60.9 and Factitious disorder imposed on self, recurrent episode F68.10 [facility] [id number] [place] [address] 10114- 6302 October, [facility] [id number] [place] [address] 70229- 7735 October, [facility] [id number] [place] [address] 14070- 1929 October, Unspecified psychosis not due to a substance or known physiological condition F29 ; Personality disorder F60.9 and Factitious disorder imposed on self, recurrent episode F68.10 [facility] [place] [id number] [place] [address] 79982- 8077 October, Back pain M54.9 [facility] [place] [id number] [place] [address] 38553- 4598 October, Seizure disorder G40.909 ; Back pain M54.9 and Allergic state, subsequent encounter T78.40XD [facility] [place] [id number] [place] [address] 27515- 8052 October, [facility] [place] [id number] [place] [address] 40582- 1980 Sep, Back pain M54.9 [facility] [id number] [place] [address] 23465- 7366 Sep, Unspecified psychosis not due to a substance or known physiological condition F29 ; Personality disorder F60.9 and Factitious disorder imposed on self, recurrent episode F68.10 [facility] [id number] [place] [address] 43908- 6270 Sep, [facility] [place] [id number] [place] [address] 25570- 4614 Sep, [facility] [place] [id number] [place] [address] 64241- 2436 Sep, [facility] [place] [id number] [place] [address] 42954- 9111 Sep, [facility] [place] [id number] [place] [address] 07770- 0060 Aug, [facility] [id number] [place] [address] 72299- 5358 Aug, Back pain M54.9 [facility] [address] [place] [address] 16246- 9930 Aug, Factitious disorder imposed on self, recurrent episode F68.10 ; Personality disorder F60.9 ; Insomnia, unspecified type G47.00 and Anxiety F41.9 [facility] [address] [address] Aug, Back pain M54.9 ; Iron deficiency anemia, unspecified iron deficiency anemia type D50.9 ; Chronic kidney disease, unspecified stage N18.9 and Breast cancer screening Z12.31 [facility] [id number] [place] [address] [id number] Jul, Back pain M54.9 [facility] [id number] [place] [address] [id number] Jul, [facility] [id number] [place] [address] [id number] Jul, [facility] [id number] [place] [address] [id number] Jun, Back pain M54.9 [facility] [id number] [place] [address] [id number] Jun, [facility] [id number] [place] [address] [id number] Jun, Back pain M54.9 [facility] [place] [id number] [address]- 4101 Jun, Back pain M54.9 ; Seizure disorder G40.909 and Age-related osteoporosis without current pathological fracture M81.0 [facility] [id number] [place] [id number] May, [facility] [place] [address] [address]- 5080 May, Back pain M54.9 [facility] [id number] [address]233 Apr, Back pain M54.9 ; Encounter for immunization Z23 ; Gastroesophageal reflux disease without esophagitis K21.9 ; Age-related osteoporosis without current pathological fracture M81.0 and Chronic pruritus L29.9 [facility] [address] [address]- 6382 16 Apr, 2017 History of CVA with residual deficit I69.30 [facility] [place] [address] [address]- 1643 16 Apr, 2017 Factitious disorder imposed on self, recurrent episode F68.10 and Personality disorder F60.9 [facility] [id number] [place] [address] [id number] Apr, Back pain M54.9 [facility] [id number] [place] [address] 13129- 6748 Mar, Factitious disorder imposed on self, recurrent episode F68.10 [facility] [place] [id number] [place] [address] 81664- 8407 Mar, [facility] [id number] [place] [address] [id number] Mar, [facility] [id number] [place] [address] [id number] Mar, Back pain M54.9 [facility] [id number] [place] [address] 86424- 9989 05 Mar, 2017 Back pain M54.9 ; Seizure disorder G40.909 and Age-related osteoporosis without current pathological fracture M81.0 [facility] [address] [address]- 2600 Feb, History of CVA with residual deficit I69.30 [facility] [address] [address]- 3883 19 Feb, 2017 Factitious disorder imposed on self, recurrent episode F68.10 and Personality disorder F60.9 [facility] [address] [address]- 8838 15 Feb, 2017 Back pain M54.9 [facility] [id number] [place] [address] 21350- 0200 Feb, [facility] [address] [address]- 9770 Jan, [facility] [address] [place] [id number] Jan, Age- related osteoporosis without current pathological fracture M81.0 and Allergic state, subsequent encounter T78.40XD [facility] [address] [address]- 1698 Jan, Factitious disorder imposed on self, recurrent episode F68.10 and Personality disorder F60.9 [facility] [address] [address]- 7859 Dec, Back pain M54.9 [facility] [id number] [address]- 3613 Dec, Personality disorder F60.9 and Factitious disorder imposed on self, recurrent episode F68.10 [facility] [id number] [place] [id number] Dec, Back pain M54.9 [facility] [id number] [id number] Dec, [facility] [id number] [place] [id number] Dec, [facility] [address] [address]- 0305 Dec, [facility] [address] [address]- 6268 Nov, [facility] [id number] [address]- 2325 Nov, Back pain M54.9 ; Anemia, unspecified type D64.9 and History of colon polyps Z86.010 [facility] [address] [address]- 6018 Nov, Back pain M54.9 [facility] [address] [id number] [id number] October, Back pain M54.9 [facility] [address] [place] [id number] October, Back pain M54.9 and Gastroesophageal reflux disease without esophagitis K21.9 [facility] [address] [id number] [id number] Sep, [facility] [address] [facility] [id number] [address]- 3817 Sep, [facility] [address] [facility] [id number] [address]- 6355 Sep, [facility] [id number] [address]- 7709 Sep, [facility] [id number] [address]- 1976 Sep, [facility] [id number] [address]- 5314 Sep, Seizure disorder G40.909 [facility] [id number] [address]- 2536 Sep, Back pain M54.9 [facility] [id number] [address]- 8976 Sep, [facility] [id number] [address]- 4902 Aug, Back pain M54.9 [facility] [address] [facility] [id number] [place] [address]- 9327 Aug, Seizure disorder G40.909 [facility] [address] [id number] [id number] Aug, [facility] [address] [id number] [place] [id number] Aug, Back pain M54.9 [facility] [address] [id number] [place] [id number] 14 Aug, 2016 Back pain M54.9 [facility] [id number] [id number] Aug, Back pain M54.9 [facility] [address] [place] [id number] Jul, Weakness R53.1 [facility] [address] [place] [address] 26939- 1056 Jul, Seizure disorder G40.909 [facility] [id number] [place] [address] 48676- 3326 Jul, [facility] [id number] [place] [address] 71446- 4681 Jul, Breast cancer screening Z12.39 [facility] [id number] [place] [address] 42919- 5584 Jul, [facility] [id number] [place] [address] 35554- 7787 Jul, [facility] [id number] [place] [address] 54334- 5810 Jul, [facility] [id number] [place] [address] 12173- 2501 Jul, Seizure disorder G40.909 ; Fatigue, unspecified type R53.83 ; Perennial allergic rhinitis, unspecified allergic rhinitis trigger J30.89 and Chronic kidney disease, unspecified stage N18.9 [facility] [address] [place] [address] 72193- 9260 Jul, [facility] [id number] [place] [address] 67157- 6227 Jul, Seizure disorder G40.909 [facility] [id number] [place] [address] 87947- 9228 Jun, [facility] [id number] [place] [address] 26287- 5361 Jun, [facility] [address] [place] [id number] Jun, Perennial allergic rhinitis, unspecified allergic rhinitis trigger J30.89 [facility] [id number] [place] [address] [id number] Jun, [facility] [id number] [place] [address] 44822- 3870 Jun, Seizure disorder G40.909 [facility] [id number] [place] [address] [id number] Jun, [facility] [id number] [place] [address] [id number] May, [facility] [id number] [place] [address] 71567- 7361 May, [facility] [id number] [place] [address] 25466- 9969 May, [facility] [id number] [place] [address] 06910- 0506 May, [facility] [id number] [place] [address] 92021- 9362 May, History of CVA with residual deficit I69.30 [facility] [id number] [place] [address] 37180- 3453 May, [facility] [id number] [place] [address] 87582- 4040 May, [facility] [id number] [place] [address] 60181- 3924 May, [facility] [id number] [place] [address] 33151- 2715 May, Seizure disorder G40.909 [facility] [id number] [place] [address] 32171- 8390 May, [facility] [address] [place] [address] May, Back pain M54.9 and Seizure disorder G40.909 [facility] [address] [facility] [id number] [address]- 5589 Apr, [facility] [address] [facility] [id number] [place] [address] 99152- 7429 Apr, Back pain M54.9 [facility] [address] [facility] [id number] [place] [address] 07061- 4536 Mar, [facility] [address] [place] [address] Mar, Insomnia, unspecified type G47.00 [facility] [address] [facility] [id number] [place] [address] 61125- 4560 Mar, [facility] [id number] [place] [address] 59829- 8715 Feb, [facility] [id number] [place] [address] 15441- 9822 Feb, [facility] [id number] [place] [address] 16401- 5633 Feb, [facility] [id number] [place] [address] 70091- 0047 Jan, [facility] [id number] [place] [address] 46414- 1419 Jan, [facility] [address] [place] [address] Jan, Seizure disorder G40.909 and Back pain M54.9 [facility] [address] [facility] [id number] [address]- 0119 Dec, [facility] [address] [facility] [id number] [place] [address] 03357- 5478 Dec, [facility] [id number] [address]- 7726 Dec, [facility] [id number] [place] [address] 82210- 2710 28 Nov, 2015 [facility] [id number] [place] [address] [phone] Nov, [facility] [place] [id number] [place] [address] [phone] 08 Nov, 2015 Back pain M54.9 [facility] [place] [id number] [place] [address] [phone] October, [facility] [place] [id number] [place] [address] [phone] October, Back pain M54.9 [facility] [place] [id number] [place] [address] [phone]- [phone] October, Seizure disorder G40.909 and B12 deficiency E53.8 [facility] [place] [id number] [place] [address] [phone]- [phone] Sep, History of CVA with residual deficit I69.30 [facility] [place] [id number] [place] [address] [phone] Sep, [facility] [place] [id number] [place] [address] [phone] Sep, [facility] [place] [id number] [place] [address] [phone] Sep, Back pain M54.9 [facility] [place] [id number] [place] [place] [address] 59[address]- 2309 Sep, Seizure disorder G40.909 [facility] [place] [id number] [place] [address] 91842- 9306 Aug, Back pain M54.9 [facility] [place] [id number] [place] [address] 23056- 0334 Aug, Seizure disorder G40.909 [facility] [place] [id number] [place] [address] 89219- 0443 Aug, Back pain M54.9 [facility] [place] [id number] [place] [address] 66033- 2349 14 Aug, 2015 Heart failure, unspecified I50.9 [facility] [place] [id number] [place] [address] 96484- 4844 14 Aug, 2015 Medication monitoring encounter Z51.81 [facility] [place] [id number] [place] [address] 21701- 1209 Jul, [facility] [place] [id number] [place] [address] 46937- 3607 Jul, Seizure disorder G40.909 [place] [address] [address]70- 6754 Jul, Back pain M54.9 [facility] [place] [id number] [place] [address] 30665- 9062 Jun, [facility] [place] [id number] [place] [address] 32754- 0735 Jun, [facility] [place] [id number] [place] [address] 40062- 6324 Jun, Mental status change R41.82 ; History of CVA with residual deficit I69.30 ; Back pain M54.9 and Seizure disorder G40.909 [facility] [place] [id number] [place] [address] 53262- 1746 Jun, [facility] [place] [id number] [place] [address] 43503- 9524 May, [facility] [place] [id number] [place] [address] 51773- 5526 Apr, [facility] [place] [id number] [place] [address] 78199- 3711 Apr, Medication monitoring encounter Z51.81 [facility] [place] [id number] [place] [address] 98313- 6882 Mar, Vomiting R11.10 [facility] [place] [address] [id number] [place] [address]- 0001 Mar, [facility] [address] [id number] [place] [address]- 8167 Feb, [facility] [address] [id number] [place] [address]- 8391 10 Feb, 2015 UTI (urinary tract infection) 599.0 [facility] [address] [id number] [place] [address]- 3236 Jan, [facility] [address] [id number] [place] [address]- 1549 Jan, [facility] [address] [id number] [place] [address]- 4906 Jan, [facility] [address] [id number] [place] [address]- 4726 Dec, [facility] [address] [id number] [place] [address]- 8725 Dec, [facility] [address] [id number] [place] [address]- 6253 Dec, [facility] [address] [id number] [place] [address]- 7766 Dec, [facility] [address] [id number] [place] [address]- 9752 Nov, UNKNOWN Nov, [facility] [address] [id number] [place] [address] 2546 October, [facility] [place] [facility] [address] [id number] [place] [address]- 4286 14 Sep, 2014 [facility] [place] [facility] [address] [id number] [place] [address]- 4903 Sep, [facility] [place] [facility] [address] [id number] [place] [address]- 2546 Aug, [facility] [place] [facility] [address] [id number] [place] [address]- 6472 Aug, [facility] [place] [facility] [address] [id number] [place] [address]- 5109 Jul, [facility] [place] [facility] [address] [id number] [place] [address]- 2226 Jul, 2014 [facility] [place] [facility] [address] [id number] [place] [address]- 9276 Jul, 2014 [facility] [place] [facility] [address] [id number] [place] [address]- 8255 Jul, [facility] [place] [facility] [address] [id number] [place] [address]- 6504 Jul, [facility] [place] [facility] [address] [id number] [place] [address]- 7672 Jun, [facility] [place] [facility] [address] [id number] [place] [address]- 2983 Jun, [facility] [place] [facility] [address] [id number] [place] [address]- 3183 Jun, [facility] [place] [facility] [address] [id number] [place] [address]- 9808 Jun, [facility] [place] [facility] [address] [id number] [place] [address]- 0912 Jun, [facility] [place] [facility] [address] [id number] [place] [address]- 5974 Jun, [facility] [place] [facility] [address] [id number] [place] [address]- 6481 Jun, [facility] [place] [facility] [address] [id number] [place] [address]- 9726 Jun, [facility] [place] [facility] [address] [id number] [place] [address]- 1612 Jun, [facility] [place] [facility] [address] [id number] [place] [address]- 5826 Jun, [facility] [place] [facility] [address] [id number] [place] [address]- 5848 Jun, [facility] [place] [facility] [address] [id number] [place] [address]- 8907 Jun, [facility] [place] [facility] [address] [id number] [place] [address]- 4285 Jun, [facility] [place] [facility] [address] [id number] [place] [address]- 1267 Jun, [facility] [place] [facility] [address] [id number] [place] [address]- 1585 Jun, [facility] [place] [facility] [address] [id number] [place] [address]- 9537 Jun, [facility] [place] [facility] [address] [id number] [place] [address]- 2758 Jun, [facility] [place] [facility] [address] [id number] [place] [address]- 4697 Jun, [facility] [place] [facility] [address] [id number] [place] [address]- 1013 May, [facility] [place] [facility] [address] [id number] [place] [address]- 4953 May, [facility] [place] [facility] [address] [id number] [place] [address]- 4963 30 May, 2014 [facility] [place] [facility] [address] [id number] [place] [address]- 6797 30 May, 2014 [facility] [place] [facility] [address] [id number] [place] [address]- 8843 19 May, 2014 [facility] [place] [facility] [address] [id number] [place] [address]- 2698 16 May, 2014 [facility] [place] [facility] [address] [id number] [place] [address]- 6574 May, [facility] [place] [facility] [address] [id number] [place] [address]- 8596 May, [facility] [address] [id number] [place] [address]- 5470 May, [facility] [address] [place] [id number] May, [facility] [address] [id number] [place] [address]- 5422 May, [facility] [place] [facility] [address] [id number] [place] [address]- 1154 May, [facility] [address] [id number] [place] [address]- 1537 May, [facility] [place] [facility] [address] [id number] [place] [address]- 5309 Apr, [facility] [address] [id number] [place] [address]- 3129 Apr, [facility] [place] [facility] [address] [id number] [place] [address]- 2787 Apr, [facility] [place] [facility] [address] [id number] [place] [address]- 2673 Apr, [facility] [place] [facility] [address] [id number] [place] [address]- 1577 Apr, [facility] [place] [facility] [address] [id number] [place] [address]- 6960 Apr, [facility] [place] [facility] [address] [id number] [place] [address]- 0101 Mar, [facility] [place] [facility] [address] [id number] [place] [address]- 8000 Mar, [facility] [place] [facility] [address] [id number] [place] [address]- 1771 Mar, [facility] [place] [facility] [address] [id number] [place] [address]- 9016 Mar, [facility] [place] [facility] [address] [id number] [place] [address]- 2672 Mar, [facility] [place] [facility] [address] [id number] [place] [address]- 5161 Mar, [facility] [place] [facility] [address] [id number] [place] [address]- 2549 Feb, [facility] [place] [facility] [address] [id number] [place] [address] 2541 24 Feb, 2014 [facility] [place] [facility] [address] [id number] [place] [address] 2543 Feb, [facility] [place] [facility] [address] [id number] [place] [address]- 9726 Feb, [facility] [place] [facility] [address] [id number] [place] [address]- 2513 Feb, [facility] [place] [facility] [address] [id number] [place] [address]- 6048 Feb, [facility] [place] [facility] [address] [id number] [place] [address]- 3358 Feb, [facility] [place] [facility] [address] [id number] [place] [address]- 9357 Feb, [facility] [place] [facility] [address] [id number] [place] [address] 2545 Feb, [facility] [place] [facility] [address] [id number] [place] [address]- 2547 Feb, [facility] [address] [place] [id number] Feb, [facility] [place] [facility] [address] [id number] [place] [address]- 4158 Feb, [facility] [place] [facility] [address] [id number] [place] [address]- 2807 Jan, [facility] [place] [facility] [address] [id number] [place] [address]- 3371 Jan, [facility] [place] [facility] [address] [id number] [place] [address]- 3300 Dec, [facility] [place] [facility] [address] [id number] [place] [address]- 1231 Dec, [facility] [place] [facility] [address] [id number] [place] [address]- 1927 Dec, [facility] [place] [facility] [address] [id number] [place] [address]- 1425 Dec, [facility] [place] [facility] [address] [id number] [place] [address]- 0662 Dec, [facility] [place] [facility] [address] [id number] [place] [address]- 5802 Dec, [facility] [place] [facility] [address] [id number] [place] [address]- 6947 Dec, [facility] [place] [facility] [address] [id number] [place] [address]- 0529 Dec, [facility] [place] [facility] [address] [id number] [place] [address]- 7971 Dec, [facility] [place] [facility] [address] [id number] [place] [address]- 6495 Dec, [facility] [place] [facility] [address] [id number] [place] [address]- 7578 Nov, [facility] [place] [facility] [address] [id number] [place] [address]- 1093 Nov, [facility] [place] [facility] [address] [id number] [place] [address]- 6934 Nov, [facility] [place] [facility] [address] [id number] [place] [address]- 2279 Nov, [facility] [place] [facility] [address] [id number] [place] [address]- 3893 Nov, [facility] [place] [facility] [address] [id number] [place] [address]- 2830 Nov, [facility] [place] [facility] [address] [id number] [place] [address]- 5014 Nov, [facility] [place] [facility] [address] [id number] [place] [address]- 2583 Nov, [facility] [place] [facility] [address] [id number] [place] [address]- 7049 Nov, [facility] [place] [facility] [address] [id number] [place] [address]- 3885 Nov, [facility] [place] [facility] [address] [id number] [place] [address]- 6529 Nov, [facility] [place] [facility] [address] [id number] [place] [address]- 6561 Nov, [facility] [place] [facility] [address] [id number] [place] [address]- 2052 Nov, [facility] [place] [facility] [address] [id number] [place] [address]- 2227 Nov, [facility] [place] [facility] [address] [id number] [place] [address]- 5475 October, [facility] [place] [facility] [address] [id number] [place] [address]- 7206 October, [facility] [place] [facility] [address] [id number] [place] [address]- 4137 October, [facility] [place] [facility] [address] [id number] [place] [address]- 8584 October, [facility] [place] [facility] [address] [id number] [place] [address]- 3032 October, [facility] [place] [facility] [address] [id number] [place] [address]- 5297 October, [facility] [place] [facility] [address] [id number] [place] [address]- 0574 October, [facility] [place] [facility] [address] [id number] [place] [address]- 4436 October, [facility] [place] [facility] [address] [id number] [place] [address]- 0523 October, [facility] [place] [facility] [address] [id number] [place] [address]- 7296 October, [facility] [place] [facility] [address] [id number] [place] [address]- 4995 Sep, [facility] [place] [facility] [address] [id number] [place] [address]- 5635 Sep, [facility] [place] [facility] [address] [id number] [place] [address]- 0876 Sep, [facility] [place] [facility] [address] [id number] [place] [address]- 6502 Sep, [facility] [place] [facility] [address] [id number] [place] [address]- 6355 Sep, [facility] [place] [facility] [address] [id number] [place] [address]- 1920 Sep, [facility] [place] [facility] [address] [id number] [place] [address]- 1959 Sep, [facility] [place] [facility] [address] [id number] [place] [address]- 2153 Sep, [facility] [place] [facility] [address] [id number] [place] [address]- 3758 Sep, [facility] [place] [facility] [address] [id number] [place] [address]- 9206 Sep, [facility] [place] [facility] [address] [id number] [place] [address]- 9912 Aug, [facility] [place] [facility] [address] [id number] [place] [address]- 2856 Aug, [facility] [place] [facility] [address] [id number] [place] [address]- 9369 Aug, [facility] [place] [facility] [address] [id number] [place] [address]- 6346 Aug, [facility] [place] [facility] [address] [id number] [place] [address]- 7096 Aug, [facility] [place] [facility] [address] [id number] [place] [address]- 3146 Aug, [facility] [place] [facility] [address] [id number] [place] [address]- 3124 Aug, [facility] [place] [facility] [address] [id number] [place] [address]- 3652 Aug, [facility] [place] [facility] [address] [id number] [place] [address]- 7923 Aug, [facility] [place] [facility] [address] [facility] [id number] [place] [address]- 9027 Jul, [facility] [place] [facility] [address] [id number] [place] [address]- 6867 Jul, [facility] [place] [facility] [address] [facility] [id number] [place] [address]- 6548 Jul, [facility] [place] [facility] [address] [facility] [id number] [place] [address]- 6463 Jul, [facility] [place] [facility] [address] [facility] [id number] [place] [address]- 2890 Jul, [facility] [place] [facility] [address] [facility] [id number] [place] [address]- 3779 Jul, [facility] [place] [facility] [address] [facility] [id number] [place] [address]- 8048 Jul, [facility] [place] [facility] [address] [facility] [id number] [place] [address]- 8320 Jul, [facility] [place] [facility] [address] [facility] [id number] [place] [address]- 7794 Jul, [facility] [place] [facility] [address] [id number] [place] [address]- 6388 17 Jul, 2013 [facility] [place] [facility] [address] [id number] [place] [address]- 5290 Jul, [facility] [place] [facility] [address] [id number] [place] [address]- 2516 Jul, [facility] [place] [facility] [address] [id number] [place] [address]- 0999 Jul, [facility] [place] [facility] [address] [id number] [place] [address]- 5336 Jul, [facility] [place] [facility] [address] [id number] [place] [address]- 8930 Jul, [facility] [place] [facility] [address] [facility] [id number] [place] [address]- 0552 Jul, [facility] [place] [facility] [address] [id number] [place] [address]- 9456 Jun, [facility] [place] [facility] [address] [id number] [place] [address]- 0730 Jun, [facility] [place] [facility] [address] [facility] [id number] [place] [address]- 0913 Jun, [facility] [place] [facility] [address] [facility] [id number] [place] [address]- 6877 Jun, [facility] [place] [facility] [address] [id number] [place] [address]- 9634 Jun, [facility] [place] [facility] [address] [id number] [place] [address]- 7957 Jun, [facility] [place] [facility] [address] [id number] [place] [address]- 1658 May, [facility] [place] [facility] [address] [id number] [place] [address]- 7581 May, [facility] [place] [facility] [address] [id number] [place] [address]- 6192 May, [facility] [address] [id number] [place] [address]- 9209 May, [facility] [place] [facility] [address] [id number] [place] [address]- 7343 Apr, [facility] [place] [facility] [address] [facility] [id number] [place] [address]- 9497 Apr, [facility] [place] [facility] [address] [id number] [place] [address]- 2840 Apr, [facility] [place] [facility] [address] [id number] [place] [address]- 1727 Apr, [facility] [place] [facility] [address] [id number] [place] [address]- 1785 Apr, [facility] [place] [facility] [address] [facility] [id number] [place] [address]- 0704 Apr, [facility] [place] [facility] [address] [id number] [place] [address]- 5924 Apr, [facility] [place] [facility] [address] [facility] [id number] [place] [address]- 6748 Apr, [facility] [place] [facility] [address] [facility] [id number] [place] [address] Apr, [facility] [place] [facility] [address] [id number] [place] [address] Apr, [facility] [place] [facility] [address] [id number] [place] [address] Apr, [facility] [place] [facility] [address] [id number] [place] [address] Apr, [facility] [place] [facility] [address] [facility] [id number] [place] [address] Mar, [facility] [place] [facility] [address] [facility] [id number] [place] [address] Mar, [facility] [place] [facility] [address] [id number] [place] [address] 16 Mar, 2012 [facility] [place] [facility] [address] [id number] [place] [address] 16 Mar, 2013 [facility] [place] [facility] [address] [id number] [place] [address]46 15 Mar, 2013 [facility] [place] [facility] [address] [id number] [place] [address] 279[address] 15 Mar, 2013 [facility] [place] [facility] [address] [id number] [place] [address] 27 Feb, 2012 [facility] [place] [facility] [address] [id number] [place] [address] 25 Feb, 2012 [facility] [place] [facility] [address] [id number] [place] [address]164 25 Feb, 2012 [facility] [place] [facility] [address] [id number] [place] [address]164 23 Feb, 2012 [facility] [place] [facility] [address] [id number] [place] [address]48 17 Feb, 2013 [facility] [place] [facility] [address] [id number] [place] [address] 10 Feb, 2013 [facility] [place] [facility] [address] [id number] [place] [address] 04 Feb, 2013 [facility] [place] [facility] [address] [id number] [place] [address] 30 Jan, 2013 [facility] [place] [facility] [address] [id number] [place] [address] 2549 20 Jan, 2013 [facility] [place] [facility] [address] [id number] [place] [address]01 15 Jan, 2013 [facility] [place] [facility] [address] [id number] [place] [address] 14 Jan, 2013 [facility] [place] [facility] [address] [id number] [place] [address] Jan, [facility] [place] [facility] [address] [id number] [place] [address] 77[address] Jan, [facility] [place] [facility] [address] [id number] [place] [address] Jan, [facility] [place] [facility] [address] [id number] [place] [address] Dec, [facility] [place] [facility] [address] [id number] [place] [address] Dec, [facility] [place] [facility] [address] [id number] [place] [address]65 Dec, [facility] [place] [facility] [address] [id number] [place] [address]69 Dec, [facility] [place] [facility] [address] [id number] [place] [address]185 Dec, [facility] [place] [facility] [address] [id number] [place] [address] Dec, [facility] [place] [facility] [address] [id number] [place] [address] Nov, [facility] [place] [facility] [address] [id number] [place] [address] Nov, [facility] [place] [facility] [address] [id number] [place] [address] Nov, [facility] [place] [facility] [address] [id number] [place] [address] Nov, [facility] [place] [facility] [address] [id number] [place] [address] October, [facility] [place] [facility] [address] [id number] [place] [address] October, [facility] [place] [facility] [address] [id number] [place] [address] October, [facility] [place] [facility] [address] [id number] [place] [address]- [address] 07 Oct, 2012 [facility] [address] [id number] [place] [address] 30 Sep, 2012 [facility] [place] [facility] [address] [id number] [place] [address] 2806 Sep, [facility] [address] [id number] [place] [address] 7027 16 Sep, 2012 [facility] [place] [facility] [address] [id number] [place] [address]69 Sep, [facility] [address] [id number] [place] [address] Sep, [facility] [place] [facility] [address] [id number] [place] [address] Sep, [facility] [address] [id number] [place] [address] 8665 Sep, [facility] [address] [id number] [place] [address]70 Sep, [facility] [address] [id number] [place] [address] Aug, [facility] [address] [id number] [place] [address] 1636 Aug, [facility] [place] [facility] [address] [id number] [place] [address]- [address] 05 Aug, 2012 [facility] [place] [facility] [address] [id number] [place] [address]337 18 Jul, 2012 [facility] [place] [facility] [address] [id number] [place] [address] 08 Jul, 2012 [facility] [place] [facility] [address] [id number] [place] [address]- [address]377 07 Jul, 2012 [facility] [place] [facility] [address] [id number] [place] [address]- [address] 06 Jul, 2012 [facility] [place] [facility] [address] [id number] [place] [address]- [address] 05 Jul, 2012 [facility] [place] [facility] [address] [id number] [place] [address]- 379[address] Jun, [facility] [place] [facility] [address] [id number] [place] [address]- [address] Jun, [facility] [place] [facility] [address] [id number] [place] [address]- 8345 Jun, [facility] [place] [facility] [address] [id number] [place] [address] May, [facility] [place] [facility] [address] [id number] [place] [address]108 May, [facility] [place] [facility] [address] [id number] [place] [address]- 7923 May, [facility] [place] [facility] [address] [id number] [place] [address]- [address]645 May, [facility] [place] [facility] [address] [id number] [place] [address]- [address]858 May, [facility] [place] [facility] [address] [facility] [id number] [place] [address]- [address]686 May, [facility] [place] [facility] [address] [id number] [place] [address] 9649 May, [facility] [place] [facility] [address] [id number] [place] [address]- [address] Apr, [facility] [place] [facility] [address] [id number] [place] [address]- [address] Apr, [facility] [place] [facility] [address] [id number] [place] [address]- [address] Apr, [facility] [place] [facility] [address] [id number] [place] [address]- [address]360 Apr, [facility] [place] [facility] [address] [id number] [place] [address]- [address]60 Apr, [facility] [place] [facility] [address] [address] [id number] [place] [address] Apr, [facility] [place] [facility] [address] [id number] [place] [address] Apr, [facility] [place] [facility] [address] [facility] [id number] [place] [address] Apr, [facility] [place] [facility] [address] [id number] [place] [address] Apr, [facility] [place] [facility] [address] [facility] [id number] [place] [address], [place] [address] 1437 Apr, [facility] [place] [facility] [address] [facility] [id number] [place] [address] Apr, [facility] [place] [facility] [address] [facility] [id number] [place] [address]- 2601 Mar, [facility] [place] [facility] [address] [id number] [place] [address] 89[address] Mar, [facility] [place] [facility] [address] [facility] [id number] [place] [address] Mar, [facility] [place] [facility] [address] [facility] [id number] [place] [address]- 0528 Mar, [facility] [place] [facility] [address] [facility] [id number] [place] [address] 4208 Mar, [facility] [place] [facility] [address] [facility] [id number] [place] [address] 0860 Mar, [facility] [place] [facility] [address] [facility] [id number] [place] [address] 7023 Mar, [facility] [place] [facility] [address] [facility] [id number] [place] [address]- 2243 19 Mar, 2012 [facility] [place] [facility] [address] [facility] [id number] [place] [address]- 1208 16 Mar, 2012 [facility] [place] [facility] [address] [id number] [place] [address]- 4282 16 Mar, 2012 [facility] [place] [facility] [address] [id number] [place] [address]- 6386 04 Mar, 2012 [facility] [place] [facility] [address] [id number] [place] [address] 2546 2011 [facility] [place] [facility] [address] [id number] [place] [address] 2546 27 Sep, 2011 [facility] [place] [facility] [address] [id number] [place] [address] 2542 27 Sep, 2011 [facility] [place] [facility] [address] [id number] [place] [address]- 0156 26 Feb, 2011 [facility] [place] [facility] [address] [id number] [place] [address]- 6027 24 Feb, 2011 [facility] [place] [facility] [address] [id number] [place] [address]- 0550 19 Feb, 2012 [facility] [place] [facility] [address] [id number] [place] [address] 2547 18 Feb, 2012 [facility] [place] [facility] [address] [id number] [place] [address] 254 18 Feb, 2012 [facility] [place] [facility] [address] [id number] [place] [address]- 9614 18 Feb, 2012 [facility] [place] [facility] [address] [id number] [place] [address] 2541 30 Jan, 2012 [facility] [place] [facility] [address] [id number] [place] [address] 2548 Jan, [facility] [place] [facility] [address] [id number] [place] [address] 2546 Jan, [facility] [place] [facility] [address] [id number] [place] [address]- 2546 Jan, [facility] [place] [facility] [address] [id number] [place] [address]- 0919 Dec, [facility] [place] [facility] [address] [id number] [place] [address]- 8284 Dec, [facility] [place] [facility] [address] [id number] [place] [address]- 7334 Dec, [facility] [place] [facility] [address] [id number] [place] [address]- 7373 Dec, [facility] [place] [facility] [address] [id number] [place] [address]- 4346 Dec, [facility] [place] [facility] [address] [id number] [place] [address]- 4505 Dec, [facility] [place] [facility] [address] [id number] [place] [address]- 0788 Dec, [facility] [place] [facility] [address] [id number] [place] [address]- 3340 Dec, [facility] [place] [facility] [address] [id number] [place] [address]- 4097 Dec, [facility] [place] [facility] [address] [id number] [place] [address]- 4846 Dec, [facility] [place] [facility] [address] [id number] [place] [address]- 9146 Dec, [facility] [place] [facility] [address] [id number] [place] [address]- 8775 Dec, [facility] [place] [facility] [address] [id number] [place] [address]- 7370 Dec, [facility] [place] [facility] [address] [id number] [place] [address]- 6709 Dec, [facility] [place] [facility] [address] [id number] [place] [address]- 4323 Nov, [facility] [place] [facility] [address] [id number] [place] [address]- 4702 Nov, [facility] [place] [facility] [address] [id number] [place] [address]- 0226 11 Nov, 2011 [facility] [address] [id number] [place] [address]- 0967 07 Nov, 2011 [facility] [place] [facility] [address] [id number] [place] [address]- 4625 Nov, [facility] [address] [id number] [place] [address]- 5300 Nov, [facility] [place] [facility] [address] [id number] [place] [address]- 6628 October, [facility] [address] [id number] [place] [address]- 4174 October, [facility] [place] [facility] [address] [id number] [place] [address]- 3187 October, [facility] [address] [id number] [place] [address]- 1225 October, [facility] [place] [facility] [address] [id number] [place] [address]- 2745 Sep, [facility] [place] [facility] [address] [id number] [place] [address]- 3566 17 Sep, 2011 [facility] [place] [facility] [address] [id number] [place] [address]- 1280 13 Sep, 2011 [facility] [place] [facility] [address] [id number] [place] [address]- 9356 Sep, [facility] [place] [facility] [address] [id number] [place] [address]- 5350 Sep, [facility] [place] [facility] [address] [id number] [place] [address]- 8488 Aug, [facility] [place] [facility] [address] [id number] [place] [address]- 1766 Aug, [facility] [place] [facility] [address] [id number] [place] [address]- 9183 Aug, [facility] [place] [facility] [address] [id number] [place] [address]- 7713 Aug, [facility] [address] [id number] [place] [address]- 1776 Aug, [facility] [address] [id number] [place] [address]- 5939 Aug, [facility] [address] [id number] [place] [address]- 0768 Aug, [facility] [address] [id number] [place] [address]- 9287 Jul, [facility] [address] [id number] [place] [address]- 3009 Jul, [facility] [address] [facility] [id number] [place] [address]- 9880 Jul, [facility] [address] [facility] [id number] [place] [address]- 5246 Jul, [facility] [address] [facility] [id number] [place] [address]- [address]44 Jun, [address] [id number] Jun, [facility] [address] [facility] [id number] [place] [address]- 4105 Jun, [facility] [address] [id number] [place] [address]- 7791 Jun, [facility] [address] [id number] [place] [address]- 9136 Jun, [facility] [address] [id number] [place] [address]- 4526 Jun, [facility] [address] [id number] [place] [address]- 6526 Jun, [facility] [address] [id number] [place] [address]- 7464 Jun, [facility] [place] [facility] [address] [id number] [place] [address]- 3921 May, [facility] [place] [facility] [address] [id number] [place] [address]- 2600 May, [facility] [place] [facility] [address] [id number] [place] [address] May, [facility] [place] [facility] [address] [id number] [place] [address]- 6301 May, [facility] [place] [facility] [address] [id number] [place] [address]- 2680 May, [facility] [place] [facility] [address] [id number] [place] [address]- 1656 May, [facility] [place] [facility] [address] [id number] [place] [address]- 8312 May, [facility] [place] [facility] [address] [id number] [place] [address]- 3322 Apr, [facility] [place] [facility] [address] [id number] [place] [address]- 1301 Apr, [facility] [place] [facility] [address] [id number] [place] [address]- 5084 Apr, [facility] [place] [facility] [address] [id number] [place] [address]- 2051 Mar, [facility] [place] [facility] [address] [id number] [place] [address]- 0779 Mar, [facility] [place] [facility] [address] [id number] [place] [address]- 4582 14 Mar, 2011 [facility] [place] [facility] [address] [id number] [place] [address]- 0416 11 Mar, 2011 [facility] [place] [facility] [address] [id number] [place] [address]- 7553 10 Mar, 2011 [facility] [place] [facility] [address] [id number] [place] [address]- 8854 10 Mar, 2011 [facility] [address] [id number] [place] [address]- 4316 10 Mar, 2011 [facility] [place] [facility] [address] [id number] [place] [address] 2546 11 Jan, 2011 [facility] [address] [id number] [place] [address] 2546 27 May, 2010 [facility] [place] [facility] [address] [id number] [place] [address] 2546 21 May, 2010 [facility] [place] [facility] [address] [id number] [place] [address]- 2476 13 May, 2010 [facility] [place] [facility] [address] [id number] [place] [address]- 6874 13 May, 2010 [facility] [address] [id number] [place] [address]- 2067 10 May, 2010 [facility] [place] [facility] [address] [id number] [place] [address]- 2545 06 May, 2010 [facility] [place] [facility] [address] [id number] [place] [address] 2541 29 Apr, 2010 [facility] [place] [facility] [address] [facility] [id number] [place] [address]- 2549 26 Apr, 2010 [facility] [place] [facility] [address] [id number] [place] [address] 2546 19 Apr, 2010 [facility] [place] [facility] [address] [id number] [place] [address]- 2543 18 Apr, 2010 [facility] [place] [facility] [address] [id number] [place] [address] 2541 15 Apr, 2010 [facility] [place] [facility] [address] [id number] [place] [address]- 2543 12 Apr, 2010 [facility] [place] [facility] [address] [id number] [place] [address] 2545 Apr, [facility] [id number] [address]- 4859 Apr, [facility] [id number] [address]- 6888 Apr, [facility] [id number] [address]- 8001 Apr, [facility] [id number] [place] [address] 26[address]- 5228 Mar, [facility] [id number] [place] [address] 6[address]- 8563 Mar, [facility] [id number] [place] [address]- 4006 Mar, [facility] [id number] [place] [address]- 8441 Mar, [facility] [id number] [place] [address]- 2296 Mar, [facility] [id number] [address]- 4379 Dec, [facility] [id number] [address]- 4728 Nov, IMMUNIZATIONS No Known Immunizations SOCIAL HISTORY Never Assessed REASON FOR VISIT Controlled Med Refill PLAN OF CARE VITAL SIGNS MEDICATIONS Medication Instructions Dosage Frequency Start Date End Date Duration Status Fentanyl 62.5 MCG/HR Transdermal every 72 hours 1 patch to skin Feb, Active RESULTS No Results PROCEDURES No Known [...] and skin graft, cholecysectomy Hospitalization History [facility] 12[facility]2016 [facility]2018
--- OUTSIDE RECORDS SUMMARY | 2018-07-05 14:56 | XMS REPORT ---
Author Author OMKAR SERRANO Organization [facility] Address [address] [place] [address] Care Team Providers Care Ethologist Name Role Phone OMKAR SERRANO Unavailable PROBLEMS Type Condition ICD9-CM Code WRR22-GO Code Onset Dates Condition Status SNOMED Code Problem Anemia, unspecified type D64.9 Active 865969390 Problem Personality disorder F60.9 Active 49643028 Problem Factitious disorder imposed on self, recurrent episode F68.10 Active 85735835 Problem Ventral hernia without obstruction or gangrene K43.9 Active 264677424 Problem Allergic state, subsequent encounter T78.40XD Active 269042587 Problem Anxiety F41.9 Active 62137985 Problem Age-related osteoporosis without current pathological fracture M81.0 Active 48834098 Problem Unspecified psychosis not due to a substance or known physiological condition F29 Active 99934099 Problem Iron deficiency anemia, unspecified iron deficiency anemia type D50.9 Active 79056559 Problem History of CVA with residual deficit I69.30 Active 921632040 Problem Seizure disorder G40.909 Active 475158435 Problem Perennial allergic rhinitis, unspecified allergic rhinitis trigger J30.89 Active 736301330 Problem Chronic kidney disease, unspecified stage N18.9 Active 855765620 Problem Back pain M54.9 Active 040876855 Problem Gastroesophageal reflux disease without esophagitis K21.9 Active 837345120 Problem Insomnia, unspecified type G47.00 Active 058435772 Problem History of colon polyps Z86.010 Active 877795606 ALLERGIES No Information ENCOUNTERS Encounter Location Date Diagnosis [facility] [id number] [address] Mar, [facility] [id number] [address] Mar, [facility] [address] [address] 17 Feb, 2018 [facility] [id number] [place] [address] 83789- 4177 Feb, Unspecified psychosis not due to a substance or known physiological condition F29 ; Personality disorder F60.9 and Factitious disorder imposed on self, recurrent episode F68.10 [facility] [id number] [place] [address] 42449- 7824 05 Feb, 2018 Back pain M54.9 [facility] [id number] [place] [address] 28262- 0877 Jan, Unspecified psychosis not due to a substance or known physiological condition F29 ; Personality disorder F60.9 and Factitious disorder imposed on self, recurrent episode F68.10 [facility] [id number] [place] [address] 21376- 8923 Jan, [facility] [id number] [place] [address] 23020- 9747 Jan, Back pain M54.9 and Seizure disorder G40.909 [facility] [id number] [place] [address] 34835- 3424 Jan, Back pain M54.9 [facility] [address] [address] 8230 Jan, Back pain M54.9 [facility] [id number] [place] [address] 72072- 2091 Jan, [facility] [address] [address] 3733 Jan, Unspecified psychosis not due to a substance or known physiological condition F29 ; Personality disorder F60.9 and Factitious disorder imposed on self, recurrent episode F68.10 [facility] [address] [address] 84[address] Dec, Back pain M54.9 ; Seizure disorder G40.909 ; Ventral hernia without obstruction or gangrene K43.9 and History of CVA with residual deficit I69.30 [facility] [id number] [place] [address] 42033- 9732 Dec, Unspecified psychosis not due to a substance or known physiological condition F29 ; Personality disorder F60.9 and Factitious disorder imposed on self, recurrent episode F68.10 [facility] [id number] [place] [address] 06486- 2222 Dec, [facility] [id number] [place] [address] 77410- 7186 Dec, Back pain M54.9 [facility] [id number] [place] [address] 58233- 6567 Dec, Factitious disorder imposed on self, recurrent episode F68.10 ; Personality disorder F60.9 ; Insomnia, unspecified type G47.00 and Anxiety F41.9 [facility] [id number] [place] [address] 61487- 7226 Nov, Unspecified psychosis not due to a substance or known physiological condition F29 ; Personality disorder F60.9 and Factitious disorder imposed on self, recurrent episode F68.10 [facility] [facility] [id number] [place] [address] 69214- 6363 Nov, Back pain M54.9 [facility] [id number] [place] [address] 47311- 7852 Nov, Unspecified psychosis not due to a substance or known physiological condition F29 ; Personality disorder F60.9 and Factitious disorder imposed on self, recurrent episode F68.10 [facility] [id number] [place] [address] 38015- 7131 October, [facility] [id number] [place] [address] 75650- 4428 October, [facility] [id number] [place] [address] 71695- 1809 October, Unspecified psychosis not due to a substance or known physiological condition F29 ; Personality disorder F60.9 and Factitious disorder imposed on self, recurrent episode F68.10 [facility] [id number] [place] [address] 27440- 9657 October, Back pain M54.9 [facility] [id number] [place] [address] 82945- 9504 October, Seizure disorder G40.909 ; Back pain M54.9 and Allergic state, subsequent encounter T78.40XD [facility] [id number] [place] [address] 61429- 4449 October, [facility] [id number] [place] [address] 92624- 1585 Sep, Back pain M54.9 [facility] [id number] [place] [address] 48704- 4767 Sep, Unspecified psychosis not due to a substance or known physiological condition F29 ; Personality disorder F60.9 and Factitious disorder imposed on self, recurrent episode F68.10 [facility] [id number] [place] [address] 79617- 7999 Sep, [facility] [id number] [place] [address] 83377- 1272 Sep, [facility] [id number] [place] [address] 61032- 4728 Sep, [facility] [id number] [place] [address] 03346- 6382 Sep, [facility] [id number] [place] [address] 00922- 8789 Aug, [facility] [id number] [place] [address] 09657- 1585 Aug, Back pain M54.9 [facility] [address] [place] [address] 15005- 2828 Aug, Factitious disorder imposed on self, recurrent episode F68.10 ; Personality disorder F60.9 ; Insomnia, unspecified type G47.00 and Anxiety F41.9 [facility] [address] [address] Aug, Back pain M54.9 ; Iron deficiency anemia, unspecified iron deficiency anemia type D50.9 ; Chronic kidney disease, unspecified stage N18.9 and Breast cancer screening Z12.31 [facility] [id number] [place] [address] [id number] Jul, Back pain M54.9 [facility] [id number] [place] [address] [id number] Jul, [facility] [id number] [place] [address] [id number] Jul, [facility] [id number] [place] [address] [phone] Jun, Back pain M54.9 [facility] [id number] [place] [address] [id number] Jun, [facility] [id number] [place] [address] [phone] Jun, Back pain M54.9 [facility] [id number] [address]- 5027 Jun, Back pain M54.9 ; Seizure disorder G40.909 and Age-related osteoporosis without current pathological fracture M81.0 [facility] [id number] [id number] May, [facility] [address] [address]- 0610 May, Back pain M54.9 [facility] [id number] [address] Apr, Back pain M54.9 ; Encounter for immunization Z23 ; Gastroesophageal reflux disease without esophagitis K21.9 ; Age-related osteoporosis without current pathological fracture M81.0 and Chronic pruritus L29.9 [facility] [address] [address]- 0790 16 Apr, 2017 History of CVA with residual deficit I69.30 [facility] [address] [address]- 7938 16 Apr, 2017 Factitious disorder imposed on self, recurrent episode F68.10 and Personality disorder F60.9 [facility] [id number] [place] [address] [id number] Apr, Back pain M54.9 [facility] [id number] [place] [address] 42509- 3150 Mar, Factitious disorder imposed on self, recurrent episode F68.10 [facility] [address] [place] [address] 14643- 4303 Mar, [facility] [id number] [place] [address] [id number] Mar, [facility] [id number] [place] [address] [id number] Mar, Back pain M54.9 [facility] [id number] [place] [address] 50541- 9433 05 Mar, 2017 Back pain M54.9 ; Seizure disorder G40.909 and Age-related osteoporosis without current pathological fracture M81.0 [facility] [address] [address]- 7882 Feb, History of CVA with residual deficit I69.30 [facility] [address] [address]- 3307 19 Feb, 2017 Factitious disorder imposed on self, recurrent episode F68.10 and Personality disorder F60.9 [facility] [address] [address]- 2428 15 Feb, 2017 Back pain M54.9 [facility] [id number] [place] [address] 12993- 4115 Feb, [facility] [address] [address]- 0061 Jan, [facility] [address] [place] [id number] Jan, Age- related osteoporosis without current pathological fracture M81.0 and Allergic state, subsequent encounter T78.40XD [facility] [address] [address]- 8364 Jan, Factitious disorder imposed on self, recurrent episode F68.10 and Personality disorder F60.9 [facility] [address] [address]- 8121 Dec, Back pain M54.9 [facility] [id number] [address]- 5200 Dec, Personality disorder F60.9 and Factitious disorder imposed on self, recurrent episode F68.10 [facility] [id number] [id number] Dec, Back pain M54.9 [facility] [id number] [id number] Dec, [facility] [id number] [id number] Dec, [facility] [address] [address]- 2447 Dec, [facility] [address] [address]- 7166 Nov, [facility] [id number] [address]- 5772 Nov, Back pain M54.9 ; Anemia, unspecified type D64.9 and History of colon polyps Z86.010 [facility] [address] [address]- 8423 Nov, Back pain M54.9 [facility] [address] [id number] [id number] October, Back pain M54.9 [facility] [address] [place] [id number] October, Back pain M54.9 and Gastroesophageal reflux disease without esophagitis K21.9 [facility] [address] [id number] [id number] Sep, [facility] [address] [facility] [id number] [address]- 0604 Sep, [facility] [address] [facility] [id number] [address]- 0205 Sep, [facility] [id number] [address]- 4749 Sep, [facility] [id number] [address]- 6768 Sep, [facility] [id number] [address]- 2995 Sep, Seizure disorder G40.909 [facility] [id number] [address]- 2817 Sep, Back pain M54.9 [facility] [id number] [address]- 1176 Sep, [facility] [id number] [address]- 2892 Aug, Back pain M54.9 [facility] [address] [facility] [id number] [address]- 8127 Aug, Seizure disorder G40.909 [facility] [address] [id number] [id number] Aug, [facility] [address] [id number] [id number] Aug, Back pain M54.9 [facility] [address] [id number] [id number] 14 Aug, 2016 Back pain M54.9 [facility] [id number] [id number] Aug, Back pain M54.9 [facility] [address] [place] [id number] Jul, Weakness R53.1 [facility] [id number] [place] [address] 66396- 0006 Jul, Seizure disorder G40.909 [facility] [id number] [place] [address] 49931- 1346 Jul, [facility] [id number] [place] [address] 64970- 5110 Jul, Breast cancer screening Z12.39 [facility] [id number] [place] [address] 24461- 8191 Jul, [facility] [id number] [place] [address] 00544- 5745 Jul, [facility] [address] [place] [address] 97618- 5918 Jul, [facility] [id number] [place] [address] 69485- 1642 Jul, Seizure disorder G40.909 ; Fatigue, unspecified type R53.83 ; Perennial allergic rhinitis, unspecified allergic rhinitis trigger J30.89 and Chronic kidney disease, unspecified stage N18.9 [facility] [address] [place] [address] 61638- 5234 Jul, [facility] [id number] [place] [address] 79421- 0568 Jul, Seizure disorder G40.909 [facility] [id number] [place] [address] 32103- 2817 Jun, [facility] [id number] [place] [address] 86349- 9012 Jun, [facility] [address] [place] [id number] Jun, Perennial allergic rhinitis, unspecified allergic rhinitis trigger J30.89 [facility] [id number] [place] [address] [id number] Jun, [facility] [id number] [place] [address] 49663- 4808 Jun, Seizure disorder G40.909 [facility] [id number] [place] [address] [id number] Jun, [facility] [id number] [place] [address] [id number] May, [facility] [id number] [place] [address] 29371- 6996 May, [facility] [id number] [place] [address] 85368- 0410 May, [facility] [id number] [place] [address] 57330- 3058 May, [facility] [id number] [place] [address] 73358- 6932 May, History of CVA with residual deficit I69.30 [facility] [address] [place] [address] 58967- 2491 May, [facility] [id number] [place] [address] 11854- 8356 May, [facility] [address] [place] [address] 26921- 2227 May, [facility] [id number] [place] [address] 03160- 5801 May, Seizure disorder G40.909 [facility] [id number] [place] [address] 73914- 3336 May, [facility] [address] [place] [address] May, Back pain M54.9 and Seizure disorder G40.909 [facility] [address] [facility] [id number] [address]- 9022 Apr, [facility] [address] [facility] [id number] [place] [address] 19997- 4545 Apr, Back pain M54.9 [facility] [address] [facility] [id number] [place] [address] 50358- 5756 Mar, [facility] [address] [place] [address] Mar, Insomnia, unspecified type G47.00 [facility] [address] [facility] [id number] [place] [address] 30602- 8272 Mar, [facility] [id number] [place] [address] 14575- 4430 Feb, [facility] [id number] [place] [address] 76996- 4744 Feb, [facility] [id number] [place] [address] 86885- 1965 Feb, [facility] [id number] [place] [address] 24526- 2010 Jan, [facility] [id number] [place] [address] 14524- 6152 Jan, [facility] [address] [place] [address] Jan, Seizure disorder G40.909 and Back pain M54.9 [facility] [address] [facility] [id number] [address]- 1754 Dec, [facility] [address] [facility] [id number] [place] [address] 57303- 1384 Dec, [facility] [id number] [address]- 2437 Dec, [facility] [id number] [place] [address] 70697- 3355 28 Nov, 2015 [facility] [id number] [place] [address] 19475- 4879 Nov, [facility] [id number] [place] [address] 11990- 4675 08 Nov, 2015 Back pain M54.9 [facility] [id number] [place] [address] 80422- 0140 October, [facility] [id number] [place] [address] 78790- 7682 October, Back pain M54.9 [facility] [id number] [place] [address] 58987- 9558 October, Seizure disorder G40.909 and B12 deficiency E53.8 [facility] [id number] [place] [address] 20958- 7822 Sep, History of CVA with residual deficit I69.30 [facility] [id number] [place] [address] 68691- 4049 Sep, [facility] [id number] [place] [address] 84868- 6378 Sep, [facility] [id number] [place] [address] 21958- 9784 Sep, Back pain M54.9 [facility] [address] [place] [address] 88872- 8333 Sep, Seizure disorder G40.909 [facility] [id number] [place] [address] 48747- 9476 Aug, Back pain M54.9 [facility] [id number] [place] [address] 14585- 9565 Aug, Seizure disorder G40.909 [facility] [id number] [place] [address] 81152- 0638 Aug, Back pain M54.9 [facility] [address] [place] [address] 36940- 8248 14 Aug, 2015 Heart failure, unspecified I50.9 [facility] [id number] [place] [address] 16101- 2131 14 Aug, 2015 Medication monitoring encounter Z51.81 [facility] [id number] [place] [address] 29401- 0091 Jul, [facility] [id number] [place] [address] 05656- 2639 Jul, Seizure disorder G40.909 [address] [address] 48290- 6195 Jul, Back pain M54.9 [facility] [id number] [place] [address] 97081- 8678 Jun, [facility] [id number] [place] [address] 93670- 9365 Jun, [facility] [id number] [place] [address] 99701- 6908 Jun, Mental status change R41.82 ; History of CVA with residual deficit I69.30 ; Back pain M54.9 and Seizure disorder G40.909 [facility] [address] [place] [address] 06213- 1629 Jun, [facility] [id number] [place] [address] 54254- 3431 May, [facility] [id number] [place] [phone]- 3716 Apr, [facility] [id number] [place] [phone]- 8614 Apr, Medication monitoring encounter Z51.81 [facility] [id number] [place] [address]41- 5809 Mar, Vomiting R11.10 [facility] [address] [id number] [place] [address] Mar, [facility] [address] [id number] [place] [address] Feb, [facility] [address] [id number] [place] [address] 10 Feb, 2015 UTI (urinary tract infection) 599.0 [facility] [address] [id number] [place] [address] Jan, [facility] [address] [id number] [place] [address] Jan, [facility] [address] [id number] [place] [address] Jan, [facility] [address] [id number] [place] [address] Dec, [facility] [address] [id number] [place] [address] Dec, [facility] [address] [id number] [place] [address] [address] Dec, [facility] [address] [id number] [place] [address] 79[address] Dec, [facility] [address] [id number] [place] [address] Nov, UNKNOWN Nov, [facility] [address] [id number] [place] [address] 2546 October, [facility] [place] [facility] [address] [id number] [place] [address] 14 Sep, 2014 [facility] [place] [facility] [address] [id number] [place] [address] Sep, [facility] [place] [facility] [address] [id number] [place] [address]46 Aug, [facility] [place] [facility] [address] [id number] [place] [address] 8817 Aug, [facility] [place] [facility] [address] [id number] [place] [address] 3[address] Jul, [facility] [place] [facility] [address] [id number] [place] [address]- 6936 Jul, 2014 [facility] [place] [facility] [address] [id number] [place] [address]- 5576 Jul, 2014 [facility] [place] [facility] [address] [id number] [place] [address]- 9483 Jul, [facility] [place] [facility] [address] [id number] [place] [address]- 0871 Jul, [facility] [place] [facility] [address] [id number] [place] [address] 4900 Jun, [facility] [place] [facility] [address] [id number] [place] [address]- 4092 Jun, [facility] [place] [facility] [address] [id number] [place] [address]- 9467 Jun, [facility] [place] [facility] [address] [id number] [place] [address]- 1438 Jun, [facility] [place] [facility] [address] [id number] [place] [address]- 3367 Jun, [facility] [place] [facility] [address] [id number] [place] [address] 1801 Jun, [facility] [place] [facility] [address] [id number] [place] [address]- 9160 Jun, [facility] [place] [facility] [address] [id number] [place] [address]- 7852 Jun, [facility] [place] [facility] [address] [id number] [place] [address]- 4837 Jun, [facility] [place] [facility] [address] [id number] [place] [address]- 4806 Jun, [facility] [place] [facility] [address] [id number] [place] [address]- 5898 Jun, [facility] [place] [facility] [address] [id number] [place] [address]- 0191 Jun, [facility] [place] [facility] [address] [id number] [place] [address]- 5751 Jun, [facility] [place] [facility] [address] [id number] [place] [address]- 8690 Jun, [facility] [place] [facility] [address] [id number] [place] [address]- 7345 Jun, [facility] [place] [facility] [address] [id number] [place] [address]- 2623 Jun, [facility] [place] [facility] [address] [id number] [place] [address]- 0296 Jun, [facility] [place] [facility] [address] [id number] [place] [address]- 2207 Jun, [facility] [place] [facility] [address] [id number] [place] [address]- 1814 May, [facility] [place] [facility] [address] [id number] [place] [address]- 7946 May, [facility] [place] [facility] [address] [id number] [place] [address]- 1357 30 May, 2014 [facility] [place] [facility] [address] [id number] [place] [address]- 0942 30 May, 2014 [facility] [place] [facility] [address] [id number] [place] [address]- 5585 19 May, 2014 [facility] [place] [facility] [address] [id number] [place] [address]- 9727 16 May, 2014 [facility] [place] [facility] [address] [id number] [place] [address]- 0855 May, [facility] [place] [facility] [address] [id number] [place] [address]- 3973 May, [facility] [address] [id number] [place] [address] 8070 May, [facility] [address] [id number] May, [facility] [address] [id number] [place] [address]- 6836 May, [facility] [place] [facility] [address] [id number] [place] [address]- 8467 May, [facility] [address] [id number] [place] [address]- 5517 May, [facility] [place] [facility] [address] [id number] [place] [address]- 4567 Apr, [facility] [address] [id number] [place] [address]- 7707 Apr, [facility] [place] [facility] [address] [id number] [place] [address]- 2252 Apr, [facility] [place] [facility] [address] [id number] [place] [address]- 4535 Apr, [facility] [place] [facility] [address] [id number] [place] [address]- 4335 Apr, [facility] [place] [facility] [address] [id number] [place] [address]- 5857 Apr, [facility] [place] [facility] [address] [id number] [place] [address]- 4658 Mar, [facility] [place] [facility] [address] [id number] [place] [address]- 1961 Mar, [facility] [place] [facility] [address] [id number] [place] [address]- 5024 Mar, [facility] [place] [facility] [address] [id number] [place] [address]- 0609 Mar, [facility] [place] [facility] [address] [id number] [place] [address]- 3170 Mar, [facility] [place] [facility] [address] [id number] [place] [address]- 0472 Mar, [facility] [place] [facility] [address] [id number] [place] [address]- 2547 Feb, [facility] [place] [facility] [address] [id number] [place] [address] 2544 24 Feb, 2014 [facility] [place] [facility] [address] [id number] [place] [address] 2545 Feb, [facility] [place] [facility] [address] [id number] [place] [address]- 0786 Feb, [facility] [place] [facility] [address] [id number] [place] [address]- 2895 Feb, [facility] [place] [facility] [address] [id number] [place] [address]- 9405 Feb, [facility] [place] [facility] [address] [id number] [place] [address]- 7355 Feb, [facility] [place] [facility] [address] [id number] [place] [address]- 1534 Feb, [facility] [place] [facility] [address] [id number] [place] [address] 254 Feb, [facility] [place] [facility] [address] [id number] [place] [address]- 254 Feb, [facility] [address] [id number] Feb, [facility] [place] [facility] [address] [id number] [place] [address]- 1332 Feb, [facility] [place] [facility] [address] [id number] [place] [address]- 2716 Jan, [facility] [place] [facility] [address] [id number] [place] [address]- 2017 Jan, [facility] [place] [facility] [address] [id number] [place] [address]- 3115 Dec, [facility] [place] [facility] [address] [id number] [place] [address]- 7341 Dec, [facility] [place] [facility] [address] [id number] [place] [address]- 6411 Dec, [facility] [place] [facility] [address] [id number] [place] [address]- 8084 Dec, [facility] [place] [facility] [address] [id number] [place] [address]- 4373 Dec, [facility] [place] [facility] [address] [id number] [place] [address]- 6816 Dec, [facility] [place] [facility] [address] [id number] [place] [address]- 7090 Dec, [facility] [place] [facility] [address] [id number] [place] [address]- 2172 Dec, [facility] [place] [facility] [address] [id number] [place] [address]- 8566 Dec, [facility] [place] [facility] [address] [id number] [place] [address]- 6991 Dec, [facility] [place] [facility] [address] [id number] [place] [address]- 3490 Nov, [facility] [place] [facility] [address] [id number] [place] [address]- 9857 Nov, [facility] [place] [facility] [address] [id number] [place] [address]- 4688 Nov, [facility] [place] [facility] [address] [id number] [place] [address]- 5158 Nov, [facility] [place] [facility] [address] [id number] [place] [address]- 8951 Nov, [facility] [place] [facility] [address] [id number] [place] [address]- 0245 Nov, [facility] [place] [facility] [address] [id number] [place] [address]- 7143 Nov, [facility] [place] [facility] [address] [id number] [place] [address]- 1823 Nov, [facility] [place] [facility] [address] [id number] [place] [address]- 0942 Nov, [facility] [place] [facility] [address] [id number] [place] [address]- 3497 Nov, [facility] [place] [facility] [address] [id number] [place] [address]- 8674 Nov, [facility] [place] [facility] [address] [id number] [place] [address]- 3742 Nov, [facility] [place] [facility] [address] [id number] [place] [address]- 5218 Nov, [facility] [place] [facility] [address] [id number] [place] [address]- 5691 Nov, [facility] [place] [facility] [address] [id number] [place] [address]- 9230 October, [facility] [place] [facility] [address] [id number] [place] [address]- 4990 October, [facility] [place] [facility] [address] [id number] [place] [address]- 0507 October, [facility] [place] [facility] [address] [id number] [place] [address]- 3480 October, [facility] [place] [facility] [address] [id number] [place] [address]- 2096 October, [facility] [place] [facility] [address] [id number] [place] [address]- 2008 October, [facility] [place] [facility] [address] [id number] [place] [address]- 7867 October, [facility] [place] [facility] [address] [id number] [place] [address]- 4606 October, [facility] [place] [facility] [address] [id number] [place] [address]- 3701 October, [facility] [place] [facility] [address] [id number] [place] [address]- 4376 October, [facility] [place] [facility] [address] [id number] [place] [address]- 1744 Sep, [facility] [place] [facility] [address] [id number] [place] [address]- 0483 Sep, [facility] [place] [facility] [address] [id number] [place] [address]- 8839 Sep, [facility] [place] [facility] [address] [id number] [place] [address]- 1349 Sep, [facility] [place] [facility] [address] [id number] [place] [address]- 1484 Sep, [facility] [place] [facility] [address] [id number] [place] [address]- 8153 Sep, [facility] [place] [facility] [address] [id number] [place] [address]- 8954 Sep, [facility] [place] [facility] [address] [id number] [place] [address]- 3679 Sep, [facility] [place] [facility] [address] [id number] [place] [address]- 6811 Sep, [facility] [place] [facility] [address] [id number] [place] [address]- 8734 Sep, [facility] [place] [facility] [address] [id number] [place] [address]- 0903 Aug, [facility] [place] [facility] [address] [id number] [place] [address]- 1086 Aug, [facility] [place] [facility] [address] [id number] [place] [address]- 5920 Aug, [facility] [place] [facility] [address] [id number] [place] [address]- 9817 Aug, [facility] [place] [facility] [address] [id number] [place] [address]- 6723 Aug, [facility] [place] [facility] [address] [id number] [place] [address]- 9409 Aug, [facility] [place] [facility] [address] [id number] [place] [address]- 7390 Aug, [facility] [place] [facility] [address] [id number] [place] [address]- 1022 Aug, [facility] [place] [facility] [address] [id number] [place] [address]- 2118 Aug, [facility] [place] [facility] [address] [facility] [id number] [place] [address]- 6458 Jul, [facility] [place] [facility] [address] [id number] [place] [address]- 2845 Jul, [facility] [place] [facility] [address] [facility] [id number] [place] [address]- 0413 Jul, [facility] [place] [facility] [address] [facility] [id number] [place] [address]- 9691 Jul, [facility] [place] [facility] [address] [facility] [id number] [place] [address]- 9795 Jul, [facility] [place] [facility] [address] [facility] [id number] [place] [address]- 2549 Jul, [facility] [place] [facility] [address] [facility] [id number] [place] [address]- 7426 Jul, [facility] [place] [facility] [address] [facility] [id number] [place] [address]- 3960 Jul, [facility] [place] [facility] [address] [facility] [id number] [place] [address]- 5512 Jul, [facility] [place] [facility] [address] [id number] [place] [address]- 9012 17 Jul, 2013 [facility] [place] [facility] [address] [id number] [place] [address]- 9895 Jul, [facility] [place] [facility] [address] [id number] [place] [address]- 0610 Jul, [facility] [place] [facility] [address] [id number] [place] [address]- 7037 Jul, [facility] [place] [facility] [address] [id number] [place] [address]- 3012 Jul, [facility] [place] [facility] [address] [id number] [place] [address]- 8726 Jul, [facility] [place] [facility] [address] [facility] [id number] [place] [address]- 0712 Jul, [facility] [place] [facility] [address] [id number] [place] [address]- 9644 Jun, [facility] [place] [facility] [address] [id number] [place] [address]- 9759 Jun, [facility] [place] [facility] [address] [facility] [id number] [place] [address]- 8359 Jun, [facility] [place] [facility] [address] [facility] [id number] [place] [address]- 6544 Jun, [facility] [place] [facility] [address] [id number] [address]- 8852 Jun, [facility] [place] [facility] [address] [id number] [place] [address]- 7072 Jun, [facility] [place] [facility] [address] [id number] [place] [address]- 9733 May, [facility] [place] [facility] [address] [id number] [place] [address]- 8156 May, [facility] [place] [facility] [address] [id number] [place] [address]- 6313 May, [facility] [address] [id number] [place] [address]- 1697 May, [facility] [place] [facility] [address] [id number] [place] [address]- 5463 Apr, [facility] [place] [facility] [address] [facility] [id number] [place] [address]- 5992 Apr, [facility] [place] [facility] [address] [id number] [place] [address]- 4381 Apr, [facility] [place] [facility] [address] [id number] [place] [address]- 2009 Apr, [facility] [place] [facility] [address] [id number] [place] [address]- 8570 Apr, [facility] [place] [facility] [address] [facility] [id number] [place] [address]- 9624 Apr, [facility] [place] [facility] [address] [id number] [place] [address]- 5955 Apr, [facility] [place] [facility] [address] [facility] [id number] [place] [address]- 4620 Apr, [facility] [place] [facility] [address] [facility] [id number] [place] [address]- 1206 Apr, [facility] [place] [facility] [address] [id number] [place] [address]- 2148 Apr, [facility] [place] [facility] [address] [id number] [place] [address]- 5121 Apr, [facility] [place] [facility] [address] [id number] [place] [address]- 0704 Apr, [facility] [place] [facility] [address] [facility] [id number] [place] [address]- 0206 Mar, [facility] [place] [facility] [address] [facility] [id number] [place] [address]- 9884 Mar, [facility] [place] [facility] [address] [id number] [place] [address]- 7690 16 Mar, 2012 [facility] [place] [facility] [address] [id number] [place] [address]- 0469 16 Mar, 2013 [facility] [place] [facility] [address] [id number] [place] [address]- 2546 15 Mar, 2013 [facility] [place] [facility] [address] [id number] [place] [address]- 1240 15 Mar, 2013 [facility] [place] [facility] [address] [id number] [place] [address]- 2547 27 Feb, 2012 [facility] [place] [facility] [address] [id number] [place] [address]- 5288 25 Feb, 2012 [facility] [place] [facility] [address] [id number] [place] [address]- 2684 25 Feb, 2012 [facility] [place] [facility] [address] [id number] [place] [address]- 7918 23 Feb, 2012 [facility] [place] [facility] [address] [id number] [place] [address]- 2545 17 Feb, 2013 [facility] [place] [facility] [address] [id number] [place] [address]- 3511 10 Feb, 2013 [facility] [place] [facility] [address] [id number] [place] [address]- 8607 04 Feb, 2013 [facility] [place] [facility] [address] [id number] [place] [address]- 7373 30 Jan, 2013 [facility] [place] [facility] [address] [id number] [place] [address] 2543 20 Jan, 2013 [facility] [place] [facility] [address] [id number] [place] [address]- 7331 15 Jan, 2013 [facility] [place] [facility] [address] [id number] [place] [address]- 2540 14 Jan, 2013 [facility] [place] [facility] [address] [id number] [place] [address]- 2549 Jan, [facility] [place] [facility] [address] [id number] [place] [address]- 1452 Jan, [facility] [place] [facility] [address] [id number] [place] [address]- 9795 Jan, [facility] [place] [facility] [address] [id number] [place] [address]- 9206 Dec, [facility] [place] [facility] [address] [id number] [place] [address]- 0008 Dec, [facility] [place] [facility] [address] [id number] [place] [address]- 6864 Dec, [facility] [place] [facility] [address] [id number] [place] [address]- 4695 Dec, [facility] [place] [facility] [address] [id number] [place] [address]- 9700 Dec, [facility] [place] [facility] [address] [id number] [place] [address]- 4862 Dec, [facility] [place] [facility] [address] [id number] [place] [address]- 4298 Nov, [facility] [place] [facility] [address] [id number] [place] [address] Nov, [facility] [place] [facility] [address] [id number] [place] [address] Nov, [facility] [place] [facility] [address] [id number] [place] [address] Nov, [facility] [place] [facility] [address] [id number] [place] [address] October, [facility] [place] [facility] [address] [id number] [place] [address] October, [facility] [place] [facility] [address] [id number] [place] [address] October, [facility] [place] [facility] [address] [id number] [place] [address] 07 Oct, 2012 [facility] [address] [id number] [place] [address] 30 Sep, 2012 [facility] [place] [facility] [address] [id number] [place] [address] Sep, [facility] [address] [id number] [place] [address] 16 Sep, 2012 [facility] [place] [facility] [address] [id number] [place] [address] Sep, [facility] [address] [id number] [place] [address] Sep, [facility] [place] [facility] [address] [id number] [place] [address] Sep, [facility] [address] [id number] [place] [address] Sep, [facility] [address] [id number] [place] [address] Sep, [facility] [address] [id number] [place] [address] Aug, [facility] [address] [id number] [place] [address] Aug, [facility] [place] [facility] [address] [id number] [place] [address]- [address] 05 Aug, 2012 [facility] [place] [facility] [address] [id number] [place] [address] 18 Jul, 2012 [facility] [place] [facility] [address] [id number] [place] [address] 08 Jul, 2012 [facility] [place] [facility] [address] [id number] [place] [address] 07 Jul, 2012 [facility] [place] [facility] [address] [id number] [place] [address] 06 Jul, 2012 [facility] [place] [facility] [address] [id number] [place] [address]- [address]65 05 Jul, 2012 [facility] [place] [facility] [address] [id number] [place] [address] Jun, [facility] [place] [facility] [address] [id number] [place] [address] 125[address] Jun, [facility] [place] [facility] [address] [id number] [place] [address] Jun, [facility] [place] [facility] [address] [id number] [place] [address] 6454 May, [facility] [place] [facility] [address] [id number] [place] [address] May, [facility] [place] [facility] [address] [id number] [place] [address] May, [facility] [place] [facility] [address] [id number] [place] [address] May, [facility] [place] [facility] [address] [id number] [place] [address] 4769 May, [facility] [place] [facility] [address] [facility] [id number] [place] [address] May, [facility] [place] [facility] [address] [id number] [address] May, [facility] [place] [facility] [address] [id number] [address] 14[address] Apr, [facility] [place] [facility] [address] [id number] [place] [address] 2564 Apr, [facility] [place] [facility] [address] [id number] [place] [address] Apr, [facility] [place] [facility] [address] [id number] [place] [address] Apr, [facility] [place] [facility] [address] [id number] [place] [address] Apr, [facility] [place] [facility] [address] [id number] [place] [address] Apr, [facility] [place] [facility] [address] [id number] [place] [address] Apr, [facility] [place] [facility] [address] [facility] [id number] [place] [address] 1141 Apr, [facility] [place] [facility] [address] [id number] [place] [address] Apr, [facility] [place] [facility] [address] [facility] [id number] [address], [place] [address]- [address] Apr, [facility] [place] [facility] [address] [facility] [id number] [place] [address] 89[address] Apr, [facility] [place] [facility] [address] [facility] [id number] [place] [address] Mar, [facility] [place] [facility] [address] [id number] [place] [address] Mar, [facility] [place] [facility] [address] [facility] [id number] [place] [address] Mar, [facility] [place] [facility] [address] [facility] [id number] [place] [address] Mar, [facility] [place] [facility] [address] [facility] [id number] [place] [address] Mar, [facility] [place] [facility] [address] [facility] [id number] [place] [address] 38[address] Mar, [facility] [place] [facility] [address] [facility] [id number] [place] [address] 8468 Mar, [facility] [place] [facility] [address] [facility] [id number] [place] [address] 285[address] 19 Mar, 2012 [facility] [place] [facility] [address] [facility] [id number] [place] [address] 16 Mar, 2012 [facility] [place] [facility] [address] [id number] [place] [address] 2667 16 Mar, 2012 [facility] [place] [facility] [address] [id number] [place] [address]- 2056 04 Mar, 2012 [facility] [place] [facility] [address] [id number] [place] [address] 2011 [facility] [place] [facility] [address] [id number] [place] [address] 2546 27 Sep, 2011 [facility] [place] [facility] [address] [id number] [place] [address] 2540 27 Sep, 2011 [facility] [place] [facility] [address] [id number] [place] [address]- 0776 26 Feb, 2011 [facility] [place] [facility] [address] [id number] [place] [address]- 3266 24 Feb, 2011 [facility] [place] [facility] [address] [id number] [place] [address]- 5642 19 Feb, 2012 [facility] [place] [facility] [address] [id number] [place] [address] 2545 18 Feb, 2012 [facility] [place] [facility] [address] [id number] [place] [address] 2543 18 Feb, 2012 [facility] [place] [facility] [address] [id number] [place] [address]- 6104 18 Feb, 2012 [facility] [place] [facility] [address] [id number] [place] [address] 2543 30 Jan, 2012 [facility] [place] [facility] [address] [id number] [place] [address] 2549 Jan, [facility] [place] [facility] [address] [id number] [place] [address] 2546 Jan, [facility] [place] [facility] [address] [id number] [place] [address]- 2546 Jan, [facility] [place] [facility] [address] [id number] [place] [address]- 5550 Dec, [facility] [place] [facility] [address] [id number] [place] [address]- 5799 Dec, [facility] [place] [facility] [address] [id number] [place] [address]- 1626 Dec, [facility] [place] [facility] [address] [id number] [place] [address]- 1116 Dec, [facility] [place] [facility] [address] [id number] [place] [address]- 5455 Dec, [facility] [place] [facility] [address] [id number] [place] [address] Dec, [facility] [place] [facility] [address] [id number] [place] [address] Dec, [facility] [place] [facility] [address] [id number] [place] [address] Dec, [facility] [place] [facility] [address] [id number] [place] [address] Dec, [facility] [place] [facility] [address] [id number] [place] [address] Dec, [facility] [place] [facility] [address] [id number] [place] [address] Dec, [facility] [place] [facility] [address] [id number] [place] [address] Dec, [facility] [place] [facility] [address] [id number] [place] [address] Dec, [facility] [place] [facility] [address] [id number] [place] [address] Dec, [facility] [place] [facility] [address] [id number] [place] [address] Nov, [facility] [place] [facility] [address] [id number] [place] [address] Nov, [facility] [place] [facility] [address] [id number] [place] [address] 11 Nov, 2011 [facility] [address] [id number] [place] [address] 07 Nov, 2011 [facility] [place] [facility] [address] [id number] [place] [address] Nov, [facility] [address] [id number] [place] [address] 39[address] Nov, [facility] [place] [facility] [address] [id number] [place] [address] October, [facility] [address] [id number] [place] [address]6 October, [facility] [place] [facility] [address] [id number] [place] [address] 2669 October, [facility] [address] [id number] [place] [address] 28[address] October, [facility] [place] [facility] [address] [id number] [place] [address] 2768 Sep, [facility] [place] [facility] [address] [id number] [place] [address] 17 Sep, 2011 [facility] [place] [facility] [address] [id number] [place] [address] 13 Sep, 2011 [facility] [place] [facility] [address] [id number] [place] [address] 1690 Sep, [facility] [place] [facility] [address] [id number] [place] [address] 357[address] Sep, [facility] [place] [facility] [address] [id number] [place] [address] 4764 Aug, [facility] [place] [facility] [address] [id number] [place] [address]27 Aug, [facility] [place] [facility] [address] [id number] [place] [address] 0917 Aug, [facility] [place] [facility] [address] [id number] [place] [address] Aug, [facility] [address] [id number] [place] [address] Aug, [facility] [address] [id number] [place] [address] Aug, [facility] [address] [id number] [place] [address]14 Aug, [facility] [address] [id number] [place] [address] 8979 Jul, [facility] [address] [id number] [place] [address] Jul, [facility] [address] [facility] [id number] [place] [address] Jul, [facility] [address] [facility] [id number] [address] Jul, [facility] [address] [facility] [id number] [address] Jun, [address] [id number] Jun, [facility] [address] [facility] [id number] [address] Jun, [facility] [address] [id number] [place] [address] Jun, [facility] [address] [id number] [place] [address] Jun, [facility] [address] [id number] [place] [address] 79[address] Jun, [facility] [address] [id number] [place] [address] 6436 Jun, [facility] [address] [id number] [place] [address] 8924 Jun, [facility] [place] [facility] [address] [id number] [place] [address] 5961 May, [facility] [place] [facility] [address] [id number] [place] [address] 49[address] May, [facility] [place] [facility] [address] [id number] [place] [address] May, [facility] [place] [facility] [address] [id number] [place] [address] 4993 May, [facility] [place] [facility] [address] [id number] [place] [address]- 9682 May, [facility] [place] [facility] [address] [id number] [place] [address]- 2866 May, [facility] [place] [facility] [address] [id number] [place] [address]- 5829 May, [facility] [place] [facility] [address] [id number] [place] [address]- 8043 Apr, [facility] [place] [facility] [address] [id number] [place] [address]- 6702 Apr, [facility] [place] [facility] [address] [id number] [place] [address] 4294 Apr, [facility] [place] [facility] [address] [id number] [place] [address] 3927 Mar, [facility] [place] [facility] [address] [id number] [place] [address] 9399 Mar, [facility] [place] [facility] [address] [id number] [place] [address] 9316 14 Mar, 2011 [facility] [place] [facility] [address] [id number] [place] [address] 6[address] 11 Mar, 2011 [facility] [place] [facility] [address] [id number] [place] [address]- 8584 10 Mar, 2011 [facility] [place] [facility] [address] [id number] [place] [address] 1998 10 Mar, 2011 [facility] [address] [id number] [place] [address] 3366 10 Mar, 2011 [facility] [place] [facility] [address] [id number] [place] [address] 2546 11 Jan, 2011 [facility] [address] [id number] [place] [address] 2546 27 May, 2010 [facility] [place] [facility] [address] [id number] [place] [address] 2546 21 May, 2010 [facility] [place] [facility] [address] [id number] [place] [address] 8256 13 May, 2010 [facility] [place] [facility] [address] [id number] [place] [address]- 1608 13 May, 2010 [facility] [address] [id number] [place] [address]- 5263 10 May, 2010 [facility] [place] [facility] [address] [id number] [place] [address]- 2544 06 May, 2010 [facility] [place] [facility] [address] [id number] [place] [address] 2540 29 Apr, 2010 [facility] [place] [facility] [address] [facility] [id number] [place] [address]- 2542 26 Apr, 2010 [facility] [place] [facility] [address] [id number] [place] [address] 2546 19 Apr, 2010 [facility] [place] [facility] [address] [id number] [place] [address]- 2548 18 Apr, 2010 [facility] [place] [facility] [address] [id number] [place] [address] 2543 15 Apr, 2010 [facility] [place] [facility] [address] [id number] [place] [address]- 2547 12 Apr, 2010 [facility] [place] [facility] [address] [id number] [place] [address] 2544 Apr, [facility] [id number] [address]69 Apr, [facility] [id number] [address] 6[address] Apr, [facility] [id number] [address] 4871 Apr, [facility] [id number] [place] [address]- [address]698 Mar, [facility] [id number] [address] 7644 Mar, [facility] [id number] [place] [address]- 5198 Mar, [facility] [id number] [place] [address]- 8057 Mar, [facility] [id number] [address] 6901 Mar, [facility] [id number] [address] 2840 Dec, [facility] [id number] [address] 4711 Nov, IMMUNIZATIONS No Known Immunizations SOCIAL HISTORY Never Assessed REASON FOR VISIT f/u PLAN OF CARE Activity Details Follow Up 2 Weeks Reason: VITAL SIGNS MEDICATIONS Unknown Medications RESULTS No Results PROCEDURES Procedure Date Ordered Result Body Site [facility] VISIT MENTAL HEALTH ESTAB PT Feb 19, 2018 Psychotherapy, patient &/family, 45 minutes, established patient Feb 19, 2018 INSTRUCTIONS MEDICATIONS ADMINISTERED No Known Medications [...] 12/2016 Hospitalization History [facility] 08/2017 Hospitalization History [facility] 01/2018
--- OUTSIDE RECORDS SUMMARY | 2018-07-05 14:57 | XMS REPORT ---
Author Author NAHOMY BETH [facility] Address [address] [place] [address] Care Team Providers Care Edge Baster Name Role Phone NAHOMY BETH Unavailable PROBLEMS Type Condition ICD9-CM Code DQS91-UD Code Onset Dates Condition Status SNOMED Code Problem Anemia, unspecified type D64.9 Active 521910688 Problem Personality disorder F60.9 Active 56540861 Problem Factitious disorder imposed on self, recurrent episode F68.10 Active 99249882 Problem Ventral hernia without obstruction or gangrene K43.9 Active 940512782 Problem Allergic state, subsequent encounter T78.40XD Active 915533229 Problem Anxiety F41.9 Active 84247435 Problem Age-related osteoporosis without current pathological fracture M81.0 Active 91321426 Problem Unspecified psychosis not due to a substance or known physiological condition F29 Active 77802240 Problem Iron deficiency anemia, unspecified iron deficiency anemia type D50.9 Active 64539387 Problem History of CVA with residual deficit I69.30 Active 985641366 Problem Seizure disorder G40.909 Active 611007686 Problem Perennial allergic rhinitis, unspecified allergic rhinitis trigger J30.89 Active 386263230 Problem Chronic kidney disease, unspecified stage N18.9 Active 639369553 Problem Back pain M54.9 Active 933379611 Problem Gastroesophageal reflux disease without esophagitis K21.9 Active 525831588 Problem Insomnia, unspecified type G47.00 Active 977555258 Problem History of colon polyps Z86.010 Active 286844634 ALLERGIES Substance Reaction Event Type Date Status Vibramycin Unknown Drug Allergy Jan, Active Tylenol hives Drug Allergy Jan, Active Tegretol Unknown Drug Allergy Jan, Active SulfADIAZINE Unknown Drug Allergy Jan, Active Penicillin V Potassium Unknown Drug Allergy Jan, Active Darvocet A500 Unknown Drug Allergy Jan, Active Codeine Phosphate Unknown Drug Allergy Jan, Active Aspirin Unknown Drug Allergy Jan, Active ENCOUNTERS Encounter Location Date Diagnosis [facility] [address], [place] [address] Mar, [facility] [id number] [place] [address] 94255- 3877 Mar, [facility] [id number] [place] [address] 17556- 5280 Feb, [facility] [id number] [place] [address] 18665- 0793 Feb, Unspecified psychosis not due to a substance or known physiological condition F29 ; Personality disorder F60.9 and Factitious disorder imposed on self, recurrent episode F68.10 [facility] [id number] [place] [address] 64273- 9519 Feb, Back pain M54.9 [facility] [id number] [place] [address] 62859- 7093 Jan, Unspecified psychosis not due to a substance or known physiological condition F29 ; Personality disorder F60.9 and Factitious disorder imposed on self, recurrent episode F68.10 [facility] [id number] [place] [address] 96337- 3337 Jan, [facility] [address] [place] [address] 14497- 6687 Jan, Back pain M54.9 and Seizure disorder G40.909 [facility] [id number] [place] [address] 94865- 1467 Jan, Back pain M54.9 [facility] [id number] [place] [address] 93185- 7356 Jan, Back pain M54.9 [facility] [id number] [place] [address] 38160- 6255 Jan, [facility] [id number] [place] [address] 93550- 4410 Jan, Unspecified psychosis not due to a substance or known physiological condition F29 ; Personality disorder F60.9 and Factitious disorder imposed on self, recurrent episode F68.10 [facility] [id number] [place] [address] 82213- 2456 Dec, Back pain M54.9 ; Seizure disorder G40.909 ; Ventral hernia without obstruction or gangrene K43.9 and History of CVA with residual deficit I69.30 [facility] [id number] [place] [address] 95460- 5125 Dec, Unspecified psychosis not due to a substance or known physiological condition F29 ; Personality disorder F60.9 and Factitious disorder imposed on self, recurrent episode F68.10 [facility] [id number] [place] [address] 24476- 7364 Dec, [facility] [id number] [place] [address] 22822- 2889 Dec, Back pain M54.9 [facility] [id number] [place] [address] 64553- 9293 Dec, Factitious disorder imposed on self, recurrent episode F68.10 ; Personality disorder F60.9 ; Insomnia, unspecified type G47.00 and Anxiety F41.9 [facility] [address] [place] [address] 83656- 5030 Nov, Unspecified psychosis not due to a substance or known physiological condition F29 ; Personality disorder F60.9 and Factitious disorder imposed on self, recurrent episode F68.10 [facility] [address] [place] [address] 76794- 4273 Nov, Back pain M54.9 [facility] [id number] [place] [address] 64756- 1489 Nov, Unspecified psychosis not due to a substance or known physiological condition F29 ; Personality disorder F60.9 and Factitious disorder imposed on self, recurrent episode F68.10 [facility] [id number] [address] 5290 October, [facility] [id number] [place] [address] 70730- 1169 October, [facility] [id number] [place] [address] 81581- 8255 October, Unspecified psychosis not due to a substance or known physiological condition F29 ; Personality disorder F60.9 and Factitious disorder imposed on self, recurrent episode F68.10 [facility] [address] [place] [address] 15593- 7066 October, Back pain M54.9 [facility] [id number] [place] [address] 62566- 8344 October, Seizure disorder G40.909 ; Back pain M54.9 and Allergic state, subsequent encounter T78.40XD [facility] [id number] [place] [address] 13270- 5003 October, [facility] [id number] [place] [address] 44811- 3901 Sep, Back pain M54.9 [facility] [id number] [place] [address] 24452- 9392 Sep, Unspecified psychosis not due to a substance or known physiological condition F29 ; Personality disorder F60.9 and Factitious disorder imposed on self, recurrent episode F68.10 [facility] [address], [place] [address]- 3109 Sep, [facility] [address], [place] [address]- 2502 Sep, [facility] [id number] [place] [address] 51448- 0060 Sep, [facility] [address], [place] [address]- 7047 Sep, [facility] [address] [address] 7190 Aug, [facility] [address], [place] [address]- 1377 Aug, Back pain M54.9 [facility] [address], [place] [address]- 5504 15 Aug, 2017 Factitious disorder imposed on self, recurrent episode F68.10 ; Personality disorder F60.9 ; Insomnia, unspecified type G47.00 and Anxiety F41.9 [facility] [address], [place] [address]- 7338 08 Aug, 2017 Back pain M54.9 ; Iron deficiency anemia, unspecified iron deficiency anemia type D50.9 ; Chronic kidney disease, unspecified stage N18.9 and Breast cancer screening Z12.31 [facility] [id number] [id number] Jul, Back pain M54.9 [facility] [id number] [place] [address] [id number] Jul, [facility] [id number] [place] [address] [id number] Jul, [facility] [id number] [place] [address] [id number] Jun, Back pain M54.9 [facility] [id number] [id number] Jun, [facility] [id number] [place] [address] [id number] Jun, Back pain M54.9 [facility] [id number], [place] [address]- 4800 Jun, Back pain M54.9 ; Seizure disorder G40.909 and Age-related osteoporosis without current pathological fracture M81.0 [facility] [id number] [id number] May, [facility] [address], [place] [address]- 2001 06 May, 2017 Back pain M54.9 [facility] [id number] [place] [address] 19300- 1401 Apr, Back pain M54.9 ; Encounter for immunization Z23 ; Gastroesophageal reflux disease without esophagitis K21.9 ; Age-related osteoporosis without current pathological fracture M81.0 and Chronic pruritus L29.9 [facility] [id number] [place] [address] 15128- 0057 Apr, History of CVA with residual deficit I69.30 [facility] [id number] [place] [address] 56776- 2819 Apr, Factitious disorder imposed on self, recurrent episode F68.10 and Personality disorder F60.9 [facility] [id number] [place] [address] [id number] Apr, Back pain M54.9 [facility] [id number] [place] [address] 12166- 9826 Mar, Factitious disorder imposed on self, recurrent episode F68.10 [facility] [id number] [place] [address] 53741- 9783 Mar, [facility] [id number] [place] [address] [id number] Mar, [facility] [id number] [place] [address] [id number] Mar, Back pain M54.9 [facility] [address] [place] [address] 44223- 8935 05 Mar, 2017 Back pain M54.9 ; Seizure disorder G40.909 and Age-related osteoporosis without current pathological fracture M81.0 [facility] [address], [place] [address]- 0197 Feb, History of CVA with residual deficit I69.30 [facility] [id number] [place] [address] 23217- 9281 19 Feb, 2017 Factitious disorder imposed on self, recurrent episode F68.10 and Personality disorder F60.9 [facility] [address] [place] [address] 55887- 1637 15 Feb, 2017 Back pain M54.9 [facility] [address], [place] [address]- 0879 06 Feb, 2017 [facility] [id number] [place] [address] 05039- 7907 Jan, [facility] [address], [place] [id number] Jan, Age- related osteoporosis without current pathological fracture M81.0 and Allergic state, subsequent encounter T78.40XD [facility] [address], [place] [address]- 9980 Jan, Factitious disorder imposed on self, recurrent episode F68.10 and Personality disorder F60.9 [facility] [address], [place] [address]- 9901 Dec, Back pain M54.9 [facility] [address] [place] [address] 46908- 1428 Dec, Personality disorder F60.9 and Factitious disorder imposed on self, recurrent episode F68.10 [facility] [id number] [id number] Dec, Back pain M54.9 [facility] [id number] [place] [address] [id number] Dec, [facility] [id number] [place] [address] [id number] Dec, [facility] [address] [place] [address] 07713- 7306 Dec, [facility] [address], [place] [address]- 1466 Nov, [facility] [address], [place] [address]- 0999 16 Nov, 2016 Back pain M54.9 ; Anemia, unspecified type D64.9 and History of colon polyps Z86.010 [facility] [address] [place] [address] 42587- 8565 Nov, Back pain M54.9 [facility] [id number] [place] [address] [id number] October, Back pain M54.9 [facility] [address] [place] [id number] October, Back pain M54.9 and Gastroesophageal reflux disease without esophagitis K21.9 [facility] [id number] [place] [address] [id number] Sep, [facility] [id number] [place] [address] 72748- 4024 Sep, [facility] [id number] [place] [address] 57246- 7775 Sep, [facility] [id number] [place] [address] 28673- 9681 Sep, [facility] [id number] [place] [address] 19418- 5827 Sep, [facility] [address] [place] [address] 09755- 4531 Sep, Seizure disorder G40.909 [facility] [id number] [place] [address] 26546- 8812 Sep, Back pain M54.9 [facility] [address] [place] [address] 69061- 4339 Sep, [facility] [id number] [place] [address] 27985- 5842 Aug, Back pain M54.9 [facility] [address] [place] [address] 17032- 7393 Aug, Seizure disorder G40.909 [facility] [id number] [id number] 17 Aug, 2016 [facility] [id number] [id number] 16 Aug, 2016 Back pain M54.9 [facility] [id number] [address] 14 Aug, 2016 Back pain M54.9 [facility] [id number] [id number] 06 Aug, 2016 Back pain M54.9 [facility] and [address] [id number] Jul, Weakness R53.1 [facility] [address] [place] [address] 03609- 3241 27 Jul, 2016 Seizure disorder G40.909 [facility] [address], [place] [address]- 4807 Jul, [facility] [address] [place] [address] 88126- 4915 Jul, Breast cancer screening Z12.39 [facility] [address] [place] [address] 50408- 1119 Jul, [facility] [address], [place] [address]- 8402 Jul, [facility] [address], [place] [address]- 1643 Jul, [facility] [address], [place] [address]- 4162 13 Jul, 2016 Seizure disorder G40.909 ; Fatigue, unspecified type R53.83 ; Perennial allergic rhinitis, unspecified allergic rhinitis trigger J30.89 and Chronic kidney disease, unspecified stage N18.9 [facility] [address], [place] [address]- 3095 06 Jul, 2016 [facility] [address], [place] [address]- 6288 Jul, Seizure disorder G40.909 [facility] [address] [place] [address] 10192- 9213 Jun, [facility] [address] [place] [address] 27119- 7793 Jun, [facility] and [address] [id number] Jun, Perennial allergic rhinitis, unspecified allergic rhinitis trigger J30.89 [facility] [id number] [place] [address] [id number] Jun, [facility] [id number] [place] [address] 43233- 7153 Jun, Seizure disorder G40.909 [facility] [id number] [place] [address] [id number] Jun, [facility] [id number] [place] [address] [id number] May, [facility] [id number] [place] [address] 24504- 7435 May, [facility] [id number] [place] [address] 07846- 2619 May, [facility] [address] [place] [address] 05354- 7346 May, [facility] [address] [place] [address] 62042- 0864 May, History of CVA with residual deficit I69.30 [facility] [id number] [place] [address] 94213- 5988 May, [facility] [id number] [place] [address] 32484- 4237 May, [facility] [address] [place] [address] 85450- 2614 May, [facility] [address] [facility] [id number] [address]- 3596 May, Seizure disorder G40.909 [facility] [address] [facility] [id number] [place] [address] 39209- 1539 May, [facility] [address] [place] [address] May, Back pain M54.9 and Seizure disorder G40.909 [facility] [id number] [place] [address] 63060- 5688 Apr, [facility] [address] [facility] [id number] [place] [address] 63722- 6543 Apr, Back pain M54.9 [facility] [address] [place] [address] 46995- 4255 Mar, [facility] [address] [place] [address] Mar, Insomnia, unspecified type G47.00 [facility] [id number] [place] [address] 38810- 7629 Mar, [facility] [id number] [place] [address] 16203- 3796 Feb, [facility] [address] [place] [address] 08848- 3766 Feb, [facility] [address] [place] [address] 07082- 6012 Feb, [facility] [id number], [place] [address]- 2431 Jan, [facility] [id number] [place] [address] 33419- 9653 Jan, [facility] [address] [place] [address] Jan, Seizure disorder G40.909 and Back pain M54.9 [facility] [address] [place] [address] 75388- 9849 Dec, [facility] [address], [place] [address]- 7646 Dec, [facility] [address] [place] [address] 27063- 9336 Dec, [facility] [address] [place] [address] 58550- 3213 Nov, [facility] [id number] [place] [address] 37781- 4496 Nov, [facility] [address] [place] [address] 71285- 6658 Nov, Back pain M54.9 [facility] [id number] [place] [address] 50035- 7110 October, [facility] [id number] [place] [address] 55023- 5095 October, Back pain M54.9 [facility] [id number] [place] [address] 97719- 5097 October, Seizure disorder G40.909 and B12 deficiency E53.8 [facility] [id number] [place] [address] 25493- 6611 Sep, History of CVA with residual deficit I69.30 [facility] [address], [place] [address]- 1554 Sep, [facility] [address], [place] [address]- 2542 Sep, [facility] [address] [place] [address] 79807- 9385 Sep, Back pain M54.9 [facility] [address], [place] [address]- 5031 Sep, Seizure disorder G40.909 [facility] [id number] [place] [address] 73190- 5188 25 Aug, 2015 Back pain M54.9 [facility] [id number] [place] [address] 14418- 6555 18 Aug, 2015 Seizure disorder G40.909 [facility] [id number] [place] [address] 86302- 8059 16 Aug, 2015 Back pain M54.9 [facility] [id number] [place] [address] 82997- 8060 14 Aug, 2015 Heart failure, unspecified I50.9 [facility] [id number] [place] [address] 89623- 3592 14 Aug, 2015 Medication monitoring encounter Z51.81 [facility] [id number] [place] [address] 79510- 8611 15 Jul, 2015 [facility] [id number] [place] [address] 61300- 6079 09 Jul, 2015 Seizure disorder G40.909 [facility] [id number] [place] [address] 33987- 1103 05 Jul, 2015 Back pain M54.9 [facility] [id number] [place] [address] 96817- 7852 Jun, [facility] [id number] [place] [address] 92939- 1260 Jun, [facility] [id number] [place] [address] 90187- 7475 Jun, Mental status change R41.82 ; History of CVA with residual deficit I69.30 ; Back pain M54.9 and Seizure disorder G40.909 [facility] [id number] [place] [address] 92959- 0763 Jun, [facility] [id number] [place] [address] 62045- 54[address] May, [facility] [id number] [place] [address]- [address] Apr, [facility] [address] [id number], [place] [address] Apr, Medication monitoring encounter Z51.81 [facility] [address] [id number], [place] [address] Mar, Vomiting R11.10 [facility] [address] [id number], [place] [address] Mar, [facility] [address] [id number], [place] [address] Feb, [facility] [id number] [place] [address]- [address] Feb, UTI (urinary tract infection) 599.0 [facility] [address] [id number], [place] [address] Jan, [facility] [address] [id number], [place] [address] Jan, [facility] [address] [id number], [place] [address] Jan, [facility] [address] [id number], [place] [address] Dec, [facility] [address] [id number], [place] [address] Dec, [facility] [address] [id number], [place] [address] Dec, [facility] [address] [id number], [place] [address] Dec, [facility] [address] [id number], [place] [address] Nov, UNKNOWN Nov, [facility] [address] [id number], [place] [address] October, [facility] [address] [id number] [place] [address] 14 Sep, 2014 [facility] [place] [facility] [address] [id number] [place] [address] Sep, [facility] [place] [facility] [address] [id number] [place] [address] 7765 Aug, [facility] [place] [facility] [address] [id number] [place] [address]- 1837 Aug, [facility] [place] [facility] [address] [id number] [place] [address]- 9528 Jul, [facility] [place] [facility] [address] [id number] [place] [address]- 2097 Jul, [facility] [place] [facility] [address] [facility] [id number] [place] [address]- 3544 Jul, [facility] [place] [facility] [address] [facility] [id number] [place] [address]- 1422 Jul, [facility] [place] [facility] [address] [facility] [id number] [place] [address]- 6302 Jul, [facility] [place] [facility] [id number] [place] [address] Jun, [facility] [place] [facility] [address] [facility] [id number] [place] [address]- 2908 Jun, [facility] [place] [facility] [address] [facility] [id number] [place] [address]- 3714 Jun, [facility] [place] [facility] [address] [id number] [place] [address]- 8808 Jun, [facility] [place] [facility] [address] [id number] [place] [address]- 6346 Jun, [facility] [place] [facility] [address] [facility] [id number] [place] [address]- 3064 Jun, [facility] [place] [facility] [address] [facility] [id number] [place] [address]- 6531 14 Jun, 2014 [facility] [place] [facility] [address] [id number] [place] [address]- 9932 Jun, [facility] [place] [facility] [address] [id number] [place] [address]- 6459 Jun, [facility] [place] [facility] [address] [id number] [place] [address]- 3437 Jun, [facility] [place] [facility] [address] [id number] [place] [address]- 0997 Jun, [facility] [place] [facility] [address] [id number] [place] [address]- 6199 Jun, [facility] [place] [facility] [address] [id number] [place] [address]- 5996 Jun, [facility] [place] [facility] [address] [id number] [place] [address]- 6073 Jun, [facility] [place] [facility] [address] [id number] [place] [address]- 1281 Jun, [facility] [place] [facility] [address] [id number] [place] [address]- 9562 Jun, [facility] [place] [facility] [address] [id number] [place] [address]- 3070 Jun, [facility] [place] [facility] [address] [id number] [place] [address]- 6023 Jun, [facility] [place] [facility] [address] [id number], [place] [address]- 230[address] May, [facility] [place] [facility] [address] [id number] [place] [address]- 2606 May, [facility] [place] [facility] [address] [id number] [place] [address]- 8906 May, [facility] [place] [facility] [address] [id number] [place] [address]- 7798 May, [facility] [place] [facility] [address] [id number], [place] [address]- 2441 May, [facility] [place] [facility] [address] [id number] [place] [address] May, [facility] [place] [facility] [address] [id number] [place] [address] May, [facility] [place] [facility] [address] [id number] [place] [address]- 3945 May, [facility] [place] [facility] [address] [id number] [place] [address]- 5075 May, [facility] [address] [id number] May, [facility] [place] [facility] [address] [id number] [place] [address]- 4565 May, [facility] [place] [facility] [address] [id number] [place] [address]- 6425 May, [facility] [place] [facility] [address] [id number] [place] [address]- 6334 May, [facility] [place] [facility] [address] [id number] [place] [address]- 1566 Apr, [facility] [place] [facility] [address] [id number] [place] [address]- 3044 Apr, [facility] [place] [facility] [address] [id number], [place] [address]- 6355 Apr, [facility] [place] [facility] [address] [id number], [place] [address]- 7630 Apr, [facility] [place] [facility] [address] [id number] [place] 2131 Apr, [facility] [place] [facility] [address] [id number] [place] [address]- 0802 Apr, [facility] [place] [facility] [address] [id number] [place] [address] Mar, [facility] [place] [facility] [address] [id number] [place] [address]- 3484 Mar, [facility] [place] [facility] [address] [id number] [place] [address]- 9768 Mar, [facility] [place] [facility] [address] [id number] [place] [address]- 9994 Mar, [facility] [place] [facility] [address] [id number] [place] [address]- 8789 Mar, [facility] [place] [facility] [address] [id number] [place] [address]- 6438 Mar, [facility] [place] [facility] [address] [id number] [place] [address]- 4537 Feb, [facility] [place] [facility] [address] [id number] [place] [address]- 8608 24 Feb, 2014 [facility] [place] [facility] [address] [id number] [place] [address]- 3198 Feb, [facility] [place] [facility] [address] [id number] [place] [address]- 3312 23 Feb, 2014 [facility] [place] [facility] [address] [id number] [place] [address] 2542 Feb, [facility] [place] [facility] [address] [id number] [place] [address]- 2549 19 Feb, 2014 [facility] [place] [facility] [address] [id number] [place] [address] 2545 19 Feb, 2013 [facility] [place] [facility] [address] [id number], [place] [address]- 2543 19 Feb, 2013 [facility] [place] [facility] [address] [id number] [place] [address]- 2549 12 Feb, 2014 [facility] [place] [facility] [address] [facility] [id number] [place] [address]- 2545 12 Feb, 2014 [facility] [address] [id number] 11 Feb, 2014 [facility] [place] [facility] [address] [id number] [place] [address]- 3517 Feb, [facility] [place] [facility] [address] [id number] [place] [address]- 1597 Jan, [facility] [place] [facility] [address] [id number] [place] [address]- 3486 Jan, [facility] [place] [facility] [address] [id number] [place] [address]- 2731 Dec, [facility] [place] [facility] [address] [id number] [place] [address]- 4244 Dec, [facility] [place] [facility] [address] [id number] [place] [address]- 9683 Dec, [facility] [place] [facility] [address] [id number] [place] [address]- 9739 Dec, [facility] [place] [facility] [address] [id number] [place] [address]- 8877 Dec, [facility] [place] [facility] [address] [id number] [place] [address]- 4458 Dec, [facility] [place] [facility] [address] [id number] [place] [address]- 7496 Dec, [facility] [place] [facility] [address] [id number] [place] [address]- 7688 Dec, [facility] [place] [facility] [address] [id number] [place] [address]- 4641 Dec, [facility] [place] [facility] [address] [id number] [place] [address]- 3723 Dec, [facility] [place] [facility] [address] [id number] [place] [address]- 9958 Nov, [facility] [place] [facility] [address] [id number] [place] [address]- 6776 Nov, [facility] [place] [facility] [address] [id number] [place] [address]- 7781 Nov, [facility] [place] [facility] [address] [id number] [place] [address]- 9375 Nov, [facility] [place] [facility] [address] [id number] [place] [address]- 5331 Nov, [facility] [place] [facility] [address] [id number] [place] [address]- 9742 Nov, [facility] [place] [facility] [address] [id number] [place] [address]- 5413 Nov, [facility] [place] [facility] [address] [id number] [place] [address]- 1592 Nov, [facility] [place] [facility] [address] [id number] [place] [address]- 3566 Nov, [facility] [place] [facility] [address] [id number] [place] [address]- 1534 Nov, [facility] [place] [facility] [address] [id number] [place] [address]- 8825 Nov, [facility] [place] [facility] [address] [id number] [place] [address]- 3600 Nov, [facility] [place] [facility] [address] [id number] [place] [address]- 1356 Nov, [facility] [place] [facility] [address] [id number] [place] [address]- 8631 Nov, [facility] [place] [facility] [address] [id number], [place] [address]- 4791 October, [facility] [place] [facility] [address] [id number] [place] [address]- 0651 October, [facility] [place] [facility] [address] [id number] [place] [address]- 1168 October, [facility] [place] [facility] [address] [id number] [place] [address]- 3541 October, [facility] [place] [facility] [address] [id number] [place] [address]- 4747 October, [facility] [place] [facility] [address] [id number] [place] [address]- 8618 October, [facility] [place] [facility] [address] [id number] [place] [address]- 8159 October, [facility] [place] [facility] [address] [id number] [place] [address]- 6257 October, [facility] [place] [facility] [address] [id number] [place] [address]- 1263 October, [facility] [place] [facility] [address] [id number] [place] [address]- 2289 October, [facility] [place] [facility] [address] [id number] [place] [address]- 8728 Sep, [facility] [place] [facility] [address] [id number] [place] [address]- 5233 Sep, [facility] [place] [facility] [address] [id number] [place] [address]- 6193 Sep, [facility] [place] [facility] [address] [id number] [place] [address]- 3114 Sep, [facility] [place] [facility] [address] [id number] [place] [address]- 7558 Sep, [facility] [place] [facility] [address] [id number] [place] [address]- 7823 Sep, [facility] [place] [facility] [address] [id number] [place] [address]- 0751 Sep, [facility] [place] [facility] [address] [id number] [place] [address]- 4926 Sep, [facility] [place] [facility] [address] [id number] [place] [address]- 3527 Sep, [facility] [place] [facility] [address] [id number] [place] [address]- 6304 Sep, [facility] [place] [facility] [address] [id number] [place] [address]- 5522 Aug, [facility] [place] [facility] [address] [id number] [place] [address]- 9045 Aug, [facility] [place] [facility] [address] [id number] [place] [address]- 6216 Aug, [facility] [place] [facility] [address] [id number] [place] [address]- 2004 Aug, [facility] [place] [facility] [address] [id number] [place] [address]- 3490 Aug, [facility] [place] [facility] [address] [id number] [place] [address]- 2876 Aug, [facility] [place] [facility] [address] [id number] [place] [address]- 9071 Aug, [facility] [place] [facility] [address] [id number] [place] [address]- 0819 Aug, [facility] [place] [facility] [address] [id number] [place] [address]- 4289 Aug, [facility] [place] [facility] [address] [id number] [place] [address]- 3731 Jul, [facility] [place] [facility] [address] [id number] [place] [address]- 6831 Jul, [facility] [place] [facility] [address] [id number] [place] [address]- 1988 Jul, [facility] [place] [facility] [address] [id number] [place] [address]- 6279 Jul, [facility] [place] [facility] [address] [id number] [place] [address]- 6089 Jul, [facility] [place] [facility] [address] [id number] [place] [address]- 4673 Jul, [facility] [place] [facility] [address] [id number] [place] [address]- 7909 Jul, 2013 [facility] [place] [facility] [address] [id number] [place] [address]- 7136 Jul, 2013 [facility] [place] [facility] [address] [id number] [place] 1656 Jul, 2013 [facility] [place] [facility] [address] [id number] [place] 1466 Jul, 2013 [facility] [place] [facility] [address] [id number] [place] [address]- 2542 Jul, [facility] [place] [facility] [address] [id number] [place] [address]- 1396 Jul, 2013 [facility] [place] [facility] [address] [id number] [place] [address]- 1016 Jul, [facility] [place] [facility] [address] [id number] [place] [address]- 5956 Jul, [facility] [place] [facility] [address] [id number] [place] [address]- 2255 Jul, [facility] [place] [facility] [address] [id number] [place] [address]- 6669 Jul, [facility] [place] [facility] [address] [id number] [place] [address]- 9973 Jun, [facility] [place] [facility] [address] [id number] [place] [address]- 8248 Jun, [facility] [place] [facility] [address] [id number] [place] [address]- 6376 Jun, [facility] [place] [facility] [address] [id number] [place] [address]- 4386 Jun, [facility] [place] [facility] [address] [id number] [place] [address]- 8026 Jun, [facility] [place] [facility] [address] [id number] [place] [address]- 3799 Jun, [facility] [place] [facility] [address] [id number] [place] [address]- 8388 May, [facility] [place] [facility] [address] [id number] [place] [address]- 2001 May, [facility] [place] [facility] [address] [id number] [place] [address]- 6865 May, [facility] [place] [facility] [address] [id number] [place] [address]- 4205 May, [facility] [place] [facility] [address] [id number] [place] [address]- 1216 Apr, [facility] [place] [facility] [address] [id number] [place] [address]- 0305 Apr, [facility] [place] [facility] [address] [id number] [place] [address]- 4146 Apr, [facility] [place] [facility] [address] [id number] [place] [address]- 8944 Apr, [facility] [place] [facility] [address] [id number] [place] [address]- 4134 Apr, [facility] [place] [facility] [address] [id number] [place] [address]- 8416 Apr, [facility] [place] [facility] [address] [id number], [place] [address]- 8540 Apr, [facility] [place] [facility] [address] [id number], [place] [address]- 3957 Apr, [facility] [place] [facility] [address] [id number] [place] [address]- 9723 Apr, [facility] [place] [facility] [address] [id number], [place] [address]- 9526 Apr, [facility] [place] [facility] [address] [id number], [place] [address]- 3147 Apr, [facility] [place] [facility] [address] [id number] [place] [address]- 6245 12 Apr, 2013 [facility] [address] [id number] [place] [address]- 0469 28 Mar, 2013 [facility] [place] [facility] [address] [id number] [place] [address]- 8421 28 Mar, 2013 [facility] [place] [facility] [address] [id number] [place] [address]- 2846 16 Mar, 2013 [facility] [place] [facility] [address] [id number] [place] [address]- 9587 16 Mar, 2013 [facility] [place] [facility] [address] [id number] [place] [address]- 8867 15 Mar, 2013 [facility] [place] [facility] [address] [id number] [place] [address]- 1492 15 Mar, 2013 [facility] [place] [facility] [address] [id number] [place] [address]- 8196 27 Feb, 2012 [facility] [place] [facility] [address] [id number] [place] [address] 2548 25 Feb, 2012 [facility] [place] [facility] [address] [id number] [place] [address]- 8697 25 Feb, 2012 [facility] [place] [facility] [address] [id number] [place] [address]- 2545 23 Feb, 2012 [facility] [place] [facility] [address] [id number] [place] [address] 254 17 Feb, 2012 [facility] [place] [facility] [address] [id number] [place] [address]- 2547 10 Feb, 2012 [facility] [place] [facility] [address] [id number] [place] [address]- 5137 04 Feb, 2012 [facility] [place] [facility] [address] [id number] [place] [address]- 2540 30 Jan, 2013 [facility] [place] [facility] [address] [id number] [place] [address]- 9053 20 Jan, 2013 [facility] [place] [facility] [address] [id number] [place] [address]- 2963 Jan, [facility] [place] [facility] [address] [id number] [place] [address]- 8287 Jan, [facility] [place] [facility] [address] [id number] [place] [address]- 2982 Jan, [facility] [place] [facility] [address] [id number] [place] [address]- 2184 Jan, [facility] [place] [facility] [address] [id number] [place] [address]- 4095 Jan, [facility] [place] [facility] [address] [id number] [place] [address]- 4851 Dec, [facility] [place] [facility] [address] [id number] [place] [address]- 3323 Dec, [facility] [place] [facility] [address] [id number] [place] [address]- 7866 Dec, [facility] [place] [facility] [address] [id number] [place] [address]- 0316 Dec, [facility] [place] [facility] [address] [id number] [place] [address]- 7862 Dec, [facility] [place] [facility] [address] [id number] [place] [address]- 7217 Dec, [facility] [place] [facility] [address] [id number] [place] [address]- 8608 Nov, [facility] [place] [facility] [address] [id number] [place] [address]- 3069 Nov, [facility] [place] [facility] [address] [id number] [place] [address]- 6026 Nov, [facility] [place] [facility] [address] [id number] [place] [address]- 5693 Nov, [facility] [place] [facility] [address] [id number] [place] [address]- 9596 October, [facility] [address] [id number] [place] [address]- 9408 October, [facility] [address] [id number] [place] [address]- 3730 October, [facility] [address] [id number] [place] [address]- 6310 October, [facility] [address] [id number] [place] [address]- 3654 Sep, [facility] [address] [id number] [place] [address]- 9323 Sep, [facility] [address] [id number] [place] [address]- 2773 Sep, [facility] [address] [id number] [place] [address]- 5157 Sep, [facility] [address] [id number] [place] [address]- 2003 Sep, [facility] [address] [id number] [place] [address]- 7414 Sep, [facility] [address] [id number] [place] [address] Sep, [facility] [address] [id number] [place] [address] Sep, [facility] [place] [facility] [address] [id number], [place] [address] Aug, [facility] [place] [facility] [address] [id number] [place] [address] Aug, [facility] [place] [facility] [address] [id number] [place] [address] Aug, [facility] [place] [facility] [address] [id number] [place] [address] Jul, [facility] [place] [facility] [address] [id number] [place] [address] 08 Jul, 2012 [facility] [address] [id number] [place] [address] 07 Jul, 2012 [facility] [place] [facility] [address] [id number] [place] [address]- [address] 06 Jul, 2012 [facility] [place] [facility] [address] [id number] [place] [address]- [address] 05 Jul, 2012 [facility] [place] [facility] [address] [id number] [place] [address] 2541 Jun, [facility] [place] [facility] [address] [id number] [place] [address]- [address] Jun, [facility] [address] [id number] [place] [address] Jun[facility] [place] [facility] [address] [id number] [place] [address] May, [facility] [address] [id number] [place] [address] May, [facility] [place] [facility] [address] [id number] [place] [address] May, [facility] [address] [id number] [place] [address] May, [facility] [place] [facility] [address] [id number] [place] [address] May, [facility] [place] [facility] [address] [id number] [place] [address] 2549 May, [facility] [place] [facility] [address] [id number] [place] [address]- 1126 May, [facility] [place] [facility] [address] [id number] [place] [address] 2546 Apr, [facility] [place] [facility] [address] [id number] [place] [address] Apr, [facility] [place] [facility] [address] [id number] [place] [address]- 3569 Apr, [facility] [place] [facility] [address] [id number] [place] [address] Apr, [facility] [place] [facility] [address] [facility] [id number] [place] [address] Apr, [facility] [place] [facility] [address] [id number] [place] [address]697 Apr, [facility] [place] [facility] [address] [id number] [place] [address] Apr, [facility] [place] [facility] [address] [id number] [place] [address]- 115[address] Apr, [facility] [place] [facility] [address] [facility] [id number] [place] [address]- [address] Apr, [facility] [place] [facility] [address] [id number], [place] [address] Apr, [facility] [place] [facility] [address] [id number], [place] [address] Apr, [facility] [place] [facility] [address] [facility] [id number], [place] [address]- [address] Mar, [facility] [place] [facility] [address] [id number], [place] [address] Mar, [facility] [place] [facility] [address] [id number], [place] [address] Mar, [facility] [place] [facility] [address] [id number], [place] [address] Mar, [facility] [place] [facility] [address] [id number], [place] [address] Mar, [facility] [place] [facility] [address] [facility] [id number], [place] [address]- [address] Mar, [facility] [place] [facility] [address] [id number] [place] [address] 19 Mar, 2012 [facility] [place] [facility] [address] [id number] [place] [address]- 6[address] 19 Mar, 2011 [facility] [place] [facility] [address] [id number] [place] [address] 2546 16 Mar, 2012 [facility] [place] [facility] [address] [id number] [place] [address]- 3636 16 Mar, 2012 [facility] [place] [facility] [address] [id number] [place] [address] 2543 04 Mar, 2012 [facility] [place] [facility] [address] [id number] [place] [address], [place] [address]- [address] 28 Sep, 2011 [facility] [place] [facility] [address] [id number] [place] [address]- [address] 27 Sep, 2011 [facility] [place] [facility] [address] [id number] [place] [address]- 1999 27 Sep, 2011 [facility] [place] [facility] [address] [id number] [place] [address]- 2541 26 Sep, 2011 [facility] [place] [facility] [address] [id number] [place] [address] 2542 24 Sep, 2011 [facility] [place] [facility] [address] [facility] [id number] [place] [address]- 2545 19 Sep, 2011 [facility] [place] [facility] [address] [id number] [place] [address] 2546 18 Sep, 2011 [facility] [place] [facility] [address] [id number] [place] [address] 2547 18 Sep, 2011 [facility] [place] [facility] [address] [id number] [place] [address] 254 18 Feb, 2011 [facility] [place] [facility] [address] [facility] [id number] [place] [address]- [address]44 30 Jan, 2012 [facility] [place] [facility] [address] [id number] [place] [address]- 254 Jan, [facility] [place] [facility] [address] [id number] [place] [address] Jan, [facility] [place] [facility] [address] [id number] [place] [address]- 1635 Jan, [facility] [place] [facility] [address] [id number] [place] [address]- [address] Dec, [facility] [place] [facility] [address] [id number] [place] [address]- 8089 Dec, [facility] [place] [facility] [address] [id number] [place] [address]- 5599 Dec, [facility] [place] [facility] [address] [id number] [place] [address]- 1149 Dec, [facility] [place] [facility] [address] [id number] [place] [address]- 1451 Dec, [facility] [place] [facility] [address] [id number] [place] [address]- 2754 Dec, [facility] [place] [facility] [address] [id number] [place] [address]- [address]32 Dec, [facility] [place] [facility] [address] [id number] [place] [address]- 5118 Dec, [facility] [place] [facility] [address] [id number] [place] [address]- [address] Dec, [facility] [place] [facility] [address] [id number] [place] [address]- 9545 Dec, [facility] [place] [facility] [address] [id number] [place] [address]- 8284 Dec, [facility] [place] [facility] [address] [id number] [place] [address]- 6893 Dec, [facility] [place] [facility] [address] [id number] [place] [address]- 0362 Dec, [facility] [place] [facility] [address] [id number] [place] [address]- 8837 05 Dec, 2011 [facility] [place] [facility] [address] [id number] [place] [address]- 7944 26 Nov, 2011 [facility] [place] [facility] [address] [id number] [place] [id number]- 7461 14 Nov, 2011 [facility] [place] [facility] [address] [id number] [place] [address] Nov, [facility] [place] [facility] [address] [id number] [place] [address] Nov, [facility] [place] [facility] [address] [id number] [place] [address] Nov, [facility] [place] [facility] [address] [id number] [place] [address] Nov, [facility] [place] [facility] [address] [id number] [place] [address] October, [facility] [place] [facility] [address] [id number] [place] [address] 8862 October, [facility] [place] [facility] [address] [id number] [place] [address] 35[address] October, [facility] [place] [facility] [address] [id number] [place] [address] 1154 October, [facility] [place] [facility] [address] [id number] [place] [address] 64[address] Sep, [facility] [place] [facility] [address] [id number] [place] [address]894 17 Sep, 2011 [facility] [place] [facility] [address] [id number] [place] [address] 9291 13 Sep, 2011 [facility] [place] [facility] [address] [id number] [place] [address] 1482 09 Sep, 2011 [facility] [place] [facility] [address] [id number] [place] [address] 4541 Sep, [facility] [place] [facility] [address] [id number] [place] [address] 9494 26 Aug, 2011 [facility] [address] [id number] [place] [address] 0418 26 Aug, 2011 [facility] [address] [id number] [place] [address]- 3745 21 Aug, 2011 [facility] [address] [facility] [id number] [place] [address]- 7521 20 Aug, 2011 [facility] [address] [id number] [place] [address]- 4929 13 Aug, 2011 [facility] [address] [id number] [place] [address]- 7478 02 Aug, 2011 [facility] [address] [facility] [id number] [place] [address] 0576 Aug, [facility] [address] [id number] [place] [address] 1070 16 Jul, 2011 [facility] [address] [facility] [id number] [place] [address]- 1472 16 Jul, 2011 [facility] [address] [id number] [place] [address] 7668 15 Jul, 2011 [facility] [address] [facility] [id number] [place] [address]- 5934 15 Jul, 2011 [facility] [address] [id number] [address] 24 Jun, 2011 [facility] [address] [place] [address] [id number] Jun, [facility] [address] [facility] [id number], [place] [address] 18 Jun, 2011 [facility] [address] [facility] [id number], [place] [address] Jun, [facility] [address] [facility] [id number], [place] [address] Jun, [facility] [address] [id number] [place] [address] Jun, [facility] [address] [id number] [place] [address]- 5281 Jun, [facility] [address] [id number] [place] [address]- 9857 Jun, [facility] [address] [id number] [place] [address]- 6690 May, [facility] [address] [id number] [place] [address]- 1199 May, [facility] [address] [id number] [place] [address]- 1267 May, [facility] [address] [id number] [place] [address]- 3894 May, [facility] [address] [id number] [place] [address] 1907 May, [facility] [address] [id number] [place] [address]- 5692 May, [facility] [address] [id number] [place] [address]- 6224 May, [facility] [place] [facility] [address] [id number] [place] [address]- 9754 Apr, [facility] [place] [facility] [address] [id number] [place] [address]- 4331 Apr, [facility] [place] [facility] [address] [id number] [place] [address]- 8863 Apr, [facility] [place] [facility] [address] [id number] [place] [address]- 2601 Mar, [facility] [place] [facility] [address] [id number] [place] [address]- 7280 Mar, [facility] [place] [facility] [address] [id number] [place] [address]- 4953 14 Mar, 2011 [facility] [place] [facility] [address] [id number] [place] [address]- 3876 11 Mar, 2011 [facility] [place] [facility] [address] [id number] [place] [address]- 2226 10 Mar, 2011 [facility] [place] [facility] [address] [id number] [place] [address] 2546 10 Mar, 2011 [facility] [place] [facility] [address] [id number] [place] [address] 2545 10 Mar, 2011 [facility] [place] [facility] [address] [id number] [place] [address]- 9837 11 Jan, 2011 [facility] [place] [facility] [address] [id number] [place] [address]- 3603 27 May, 2010 [facility] [place] [facility] [address] [id number] [place] [address]- 8099 21 May, 2010 [facility] [place] [facility] [address] [id number] [place] [address]- 7337 13 May, 2010 [facility] [place] [facility] [address] [id number] [place] [address]- 8228 13 May, 2010 [facility] [place] [facility] [address] [id number] [place] [address]- 4878 May, [facility] [place] [facility] [address] [id number] [place] [address]- 9130 06 May, 2010 [facility] [place] [facility] [address] [id number] [place] [address]- 2544 29 Apr, 2010 [facility] [place] [facility] [address] [id number] [place] [address] 2542 Apr, [facility] [place] [facility] [address] [id number] [place] [address]- 2542 19 Apr, 2010 [facility] [place] [facility] [address] [id number] [place] [address]- 2540 18 Apr, 2010 [facility] [place] [facility] [address], [place] [address] Apr, [facility] [address], [place] [address]16 Apr, [facility] [address], [place] [address] 2546 Apr, [facility] [address], [place] [address] 8606 Apr, [facility] [address], [place] [address]- 2544 Apr, [facility] [id number] [place] [address] Apr, [facility] [id number], [place] [address] 8936 Mar, [facility] [id number] [place] [address] 2547 Mar, [facility] [address], [place] [address] 2548 Mar, [facility] [address] [id number], [place] [address] 9[address] Mar, [facility] [address], [place] [address] 4[address] Mar, [facility] [address], [place] [address] Dec, [facility] [address] [id number], [place] [address] 3727 Nov, IMMUNIZATIONS No Known Immunizations SOCIAL HISTORY Never Assessed REASON FOR VISIT [facility] follow up, PT reports she was not doing well and ended up being hospitalized due to not feeling herself. PT notes that she was not given any of her medication at [facility]. -Lisa OTERO , PT would like to discuss lin pena and gas -x -Lisa OTERO PLAN OF CARE Activity Details Follow Up 2 Months Reason: VITAL SIGNS Height 62 in 2018-02-11 Weight 114 lbs 2018-02-11 Temperature 97.9 degrees Fahrenheit 2018-02-11 Heart Rate 46 bpm 2018-02-11 Respiratory Rate 20 2018-02-11 Oximetry 99 % 2018-02-11 BMI 20.85 kg/m2 2018-02-11 Blood pressure systolic 128 mmHg 2018-02-11 Blood pressure diastolic 62 mmHg 2018-02-11 MEDICATIONS Medication Instructions Dosage Frequency Start Date End Date Duration Status Phenytoin Sodium Extended 100 MG TAKE 1 CAPSULE BY MOUTH TWICE DAILY 30 Active Fluticasone Propionate 50 MCG/ACT INSTILL 1 SPRAY IN EACH NOSTRIL TWICE DAILY 30 Active Clorazepate Dipotassium 3.75 MG Orally Twice a day 1 tablets 12h 28 Active Refresh Liquigel 1 % Ophthalmic 4 times a day 1 drop into affected eye as needed 6h Active Zofran ODT 4 mg Orally every 8 hrs 1 tablet on the tongue and allow to dissolve 8h Active Hydrocortisone 2.5 % Externally every 24 hours as needed for dry skin 1 application to affected area Active Bisacodyl 10 mg Rectal Once a day prn 1 suppository as needed Active Gabapentin 400 MG TAKE 1 CAPSULE BY MOUTH AT BEDTIME 30 Active Fentanyl 62.5 MCG/HR Transdermal every 72 hours 1 patch to skin Jan, Not-Taking Nitro-Dur 0.2 MG/HR Transdermal Once a day 1 patch to skin remove after 12 hours 24h Active Rosuvastatin Calcium 10 MG TAKE ONE TABLET BY MOUTH EVERY NIGHT AT BEDTIME 30 Active Coumadin 1 MG Orally 1 mg on sundays only, 1.5mg other days 1 tablet Active Acetaminophen 650 MG Orally every 6 hrs 1 tablet as needed 6h Active Metoprolol Tartrate 50 MG Orally Twice a day TAKE 1 TABLET BY MOUTH TWICE DAILY 12h Active Tussin Cough DM 100-10 MG/5ML Orally every 6 hrs as needed for cough 10 ml as needed Active Restasis 0.05 % 1 DROP EACH EYE TWICE DAILY 30 Active Sodium Bicarbonate 650 MG Orally Once a day 1 tablet 24h Active Nitroglycerin 0.2 MG/HR APPLY ONE PATCH TRANSDERMALLY DAILY AND REMOVE AT BEDTIME 30 Active Topiramate 100 MG TAKE 1 TABLET BY MOUTH TWICE DAILY 30 Active MiraLax Orally twice a day 17 GM 12h Active Vitamin D (Ergocalciferol) 55428 UNIT Orally 2 times a day every 7 days 1 capsule Active Lipitor 40 mg Orally Once a day 1 tablet 24h Active Hydrocortisone 2.5 % APPLY TO DRY SKIN ONCE DAILY NEEDED 30 Active Refresh Tears 0.5 % 1 drop into affected eye as needed Active Fexofenadine HCl 180 MG Orally Once a day 1 tablet 24h Active Melatonin 5 mg Orally at bedtime 1 tablet 30 days Active Lamotrigine 100 MG TAKE 1 TABLET BY MOUTH TWICE DAILY 30 Active Famotidine 20 mg Orally Once a day 1 tablet at bedtime 24h October, 90 days Active Citalopram Hydrobromide 10 mg Orally Once a day 1 tablet 24h 30 days Active Fentanyl 75 MCG/HR Transdermal every 72 hours 1 patch to skin Jan, Active RESULTS No Results PROCEDURES Procedure Date Ordered Result Body Site [facility] VISIT ESTABLISHED PATIENT Feb 11, 2018 INSTRUCTIONS MEDICATIONS ADMINISTERED No Known Medications [...] [facility] 12/2016 Hospitalization History [facility] 08/2017 Hospitalization History [facility] 01/2018
--- OUTSIDE RECORDS SUMMARY | 2018-07-05 14:58 | XMS REPORT ---
Author Author NAHOMY BETH Organization [facility] Address [address] [place] [address] Care Team Providers Care Safety Leader Name Role Phone NAHOMY BETH Unavailable PROBLEMS Type Condition ICD9-CM Code VAF53-IO Code Onset Dates Condition Status SNOMED Code Problem Anemia, unspecified type D64.9 Active 429137034 Problem Personality disorder F60.9 Active 60826355 Problem Factitious disorder imposed on self, recurrent episode F68.10 Active 41094785 Problem Ventral hernia without obstruction or gangrene K43.9 Active 775521380 Problem Allergic state, subsequent encounter T78.40XD Active 015089357 Problem Anxiety F41.9 Active 64929184 Problem Age-related osteoporosis without current pathological fracture M81.0 Active 72923635 Problem Unspecified psychosis not due to a substance or known physiological condition F29 Active 95160377 Problem Iron deficiency anemia, unspecified iron deficiency anemia type D50.9 Active 44534055 Problem History of CVA with residual deficit I69.30 Active 768622963 Problem Seizure disorder G40.909 Active 240563224 Problem Perennial allergic rhinitis, unspecified allergic rhinitis trigger J30.89 Active 384049183 Problem Chronic kidney disease, unspecified stage N18.9 Active 612331522 Problem Back pain M54.9 Active 429824831 Problem Gastroesophageal reflux disease without esophagitis K21.9 Active 624104924 Problem Insomnia, unspecified type G47.00 Active 204892432 Problem History of colon polyps Z86.010 Active 329065657 ALLERGIES No Information ENCOUNTERS Encounter Location Date Diagnosis [facility] [id number], [place] [address] Mar, [facility] [id number], [place] [address] 98[address] Mar, [facility] [address], [place] [address] 17 Feb, 2018 [facility] [id number] [place] [address] 09882- 5992 Feb, Unspecified psychosis not due to a substance or known physiological condition F29 ; Personality disorder F60.9 and Factitious disorder imposed on self, recurrent episode F68.10 [facility] [id number] [place] [address] 35216- 9948 05 Feb, 2018 Back pain M54.9 [facility] [id number] [place] [address] 80786- 6450 Jan, Unspecified psychosis not due to a substance or known physiological condition F29 ; Personality disorder F60.9 and Factitious disorder imposed on self, recurrent episode F68.10 [facility] [id number] [place] [address] 91168- 5919 Jan, [facility] [id number] [place] [address] 05660- 8981 Jan, Back pain M54.9 and Seizure disorder G40.909 [facility] [id number] [place] [address] 36146- 1794 Jan, Back pain M54.9 [facility] [address] [place] [address] 17882- 1313 Jan, Back pain M54.9 [facility] [id number] [place] [address] 75920- 5475 Jan, [facility] [address] [place] [address] 23787- 2213 Jan, Unspecified psychosis not due to a substance or known physiological condition F29 ; Personality disorder F60.9 and Factitious disorder imposed on self, recurrent episode F68.10 [facility] [address], [place] [address] 00[address] Dec, Back pain M54.9 ; Seizure disorder G40.909 ; Ventral hernia without obstruction or gangrene K43.9 and History of CVA with residual deficit I69.30 [facility] [facility] [id number] [place] [address] 57176- 6245 Dec, Unspecified psychosis not due to a substance or known physiological condition F29 ; Personality disorder F60.9 and Factitious disorder imposed on self, recurrent episode F68.10 [place] [facility] [id number] [place] [address] 48912- 0647 Dec, [facility] [facility] [id number] [place] [address] 27399- 5414 Dec, Back pain M54.9 [place] [address] [address]54- 0877 Dec, Factitious disorder imposed on self, recurrent episode F68.10 ; Personality disorder F60.9 ; Insomnia, unspecified type G47.00 and Anxiety F41.9 [place] [facility] [id number] [place] [address] 51558- 8285 Nov, Unspecified psychosis not due to a substance or known physiological condition F29 ; Personality disorder F60.9 and Factitious disorder imposed on self, recurrent episode F68.10 [place] [facility] [id number] [place] [address] 32360- 9588 Nov, Back pain M54.9 [place] [facility] [id number] [place] [address] 73206- 0679 Nov, Unspecified psychosis not due to a substance or known physiological condition F29 ; Personality disorder F60.9 and Factitious disorder imposed on self, recurrent episode F68.10 [place] [id number] [place] [address] 97088- 0559 October, [facility] [facility] [id number] [place] [address] 47579- 2863 October, [place] [facility] [id number] [place] [address] 73893- 6154 October, Unspecified psychosis not due to a substance or known physiological condition F29 ; Personality disorder F60.9 and Factitious disorder imposed on self, recurrent episode F68.10 [facility] [address] [place] [address] 10491- 6585 October, Back pain M54.9 [facility] [address] [place] [address] 76837- 6016 October, Seizure disorder G40.909 ; Back pain M54.9 and Allergic state, subsequent encounter T78.40XD [facility] [id number] [place] [address] 17114- 3307 October, [facility] [id number] [place] [address] 56373- 1993 Sep, Back pain M54.9 [facility] [id number] [place] [address] 48763- 0284 Sep, Unspecified psychosis not due to a substance or known physiological condition F29 ; Personality disorder F60.9 and Factitious disorder imposed on self, recurrent episode F68.10 [facility] [address] [place] [address] 84465- 4319 Sep, [facility] [id number] [place] [address] 18564- 2924 Sep, [facility] [address] [place] [address] 52518- 6439 Sep, [facility] [id number] [place] [address] 55041- 2961 Sep, [facility] [address], [place] [address] 2408 Aug, [facility] [id number] [place] [address] 07321- 6407 Aug, Back pain M54.9 [facility] [address] [place] [address] 42132- 7724 15 Mar, 2018 Factitious disorder imposed on self, recurrent episode F68.10 ; Personality disorder F60.9 ; Insomnia, unspecified type G47.00 and Anxiety F41.9 [facility] [address] [address] Aug, Back pain M54.9 ; Iron deficiency anemia, unspecified iron deficiency anemia type D50.9 ; Chronic kidney disease, unspecified stage N18.9 and Breast cancer screening Z12.31 [facility] [id number] [place] [address] [id number] Jul, Back pain M54.9 [facility] [id number] [place] [address] [id number] Jul, [place] [id number] [place] [address] [id number] Jul, [facility] [id number] [place] [address] [id number] Jun, Back pain M54.9 [facility] [id number] [id number] Jun, [facility] [id number] [place] [address] [id number] Jun, Back pain M54.9 [facility] [id number] [address] Jun, Back pain M54.9 ; Seizure disorder G40.909 and Age-related osteoporosis without current pathological fracture M81.0 [facility] [id number] [id number] May, [facility] [address], [place] [address]- 0744 May, Back pain M54.9 [facility] [address] [address] Apr, Back pain M54.9 ; Encounter for immunization Z23 ; Gastroesophageal reflux disease without esophagitis K21.9 ; Age-related osteoporosis without current pathological fracture M81.0 and Chronic pruritus L29.9 [facility] [address] [place] [address] 06150- 4123 16 Apr, 2017 History of CVA with residual deficit I69.30 [facility] [address] [place] [address] 42679- 9991 16 Apr, 2017 Factitious disorder imposed on self, recurrent episode F68.10 and Personality disorder F60.9 [facility] [id number] [place] [address] [id number] Apr, Back pain M54.9 [facility] [id number] [place] [address] 12421- 5851 Mar, Factitious disorder imposed on self, recurrent episode F68.10 [facility] [id number] [place] [address] 02049- 5251 Mar, [facility] [id number] [place] [address] [id number] Mar, [facility] [id number] [place] [address] [id number] Mar, Back pain M54.9 [facility] [id number] [place] [address] 03116- 8472 05 Mar, 2017 Back pain M54.9 ; Seizure disorder G40.909 and Age-related osteoporosis without current pathological fracture M81.0 [facility] [address] [place] [address] 92124- 5153 19 Feb, 2017 History of CVA with residual deficit I69.30 [facility] [address] [place] [address] 70668- 9897 19 Feb, 2017 Factitious disorder imposed on self, recurrent episode F68.10 and Personality disorder F60.9 [facility] [address], [place] [address]- 5887 15 Feb, 2017 Back pain M54.9 [facility] [id number] [place] [address] 47622- 9798 Feb, [facility] [id number], [place] [address] 2119 Jan, [facility] [address] [place] [id number] Jan, Age- related osteoporosis without current pathological fracture M81.0 and Allergic state, subsequent encounter T78.40XD [facility] [id number], [place] [address]- 8491 Jan, Factitious disorder imposed on self, recurrent episode F68.10 and Personality disorder F60.9 [facility] [id number], [place] [address]- 2819 Dec, Back pain M54.9 [facility] [id number], [place] [address]- 7990 Dec, Personality disorder F60.9 and Factitious disorder imposed on self, recurrent episode F68.10 [facility] [id number] [id number] Dec, Back pain M54.9 [facility] [id number] [place] [address] [id number] Dec, [facility] [id number] [id number] Dec, [facility] [id number], [place] [address]- 5046 Dec, [facility] [address], [place] [address]- 5238 Nov, [facility] [id number], [place] [address]- 3373 Nov, Back pain M54.9 ; Anemia, unspecified type D64.9 and History of colon polyps Z86.010 [facility] [id number], [place] [address]- 8222 Nov, Back pain M54.9 [facility] [id number] [id number] October, Back pain M54.[address] [id number] October, Back pain M54.9 and Gastroesophageal reflux disease without esophagitis K21.9 [facility] [address] [id number] [id number] Sep, [facility] [address] [address] 2967 Sep, [facility] [id number] [address] 8485 Sep, [facility] [address], [place] [address]- 9981 Sep, [facility] [address], [place] [address]- 9215 Sep, [facility] [address], [place] [address]- 8663 Sep, Seizure disorder G40.909 [facility] [id number], [place] [address]- 9216 Sep, Back pain M54.9 [facility] [id number], [place] [address]- 3546 Sep, [facility] [address], [place] [address]- 3626 Aug, Back pain M54.9 [facility] [id number], [place] [address] 2546 29 Aug, 2016 Seizure disorder G40.909 [facility] [address] [id number] [id number] Aug, [facility] [address] [id number] [id number] 16 Aug, 2016 Back pain M54.9 [facility] [address] [id number] [id number] Aug, Back pain M54.9 [facility] [id number] [id number] Aug, Back pain M54.9 [facility] [address] [place] [id number] Jul, Weakness R53.1 [facility] [address] [place] [address] 21444- 2456 Jul, Seizure disorder G40.909 [facility] [id number] [place] [address] 74293- 6682 Jul, [facility] [id number] [place] [address] 95572- 6398 Jul, Breast cancer screening Z12.39 [facility] [id number] [place] [address] 29234- 0504 Jul, [facility] [id number] [place] [address] 52657- 9135 Jul, [facility] [address] [place] [address] 13841- 4432 Jul, [facility] [address] [place] [address] 09229- 3345 Jul, Seizure disorder G40.909 ; Fatigue, unspecified type R53.83 ; Perennial allergic rhinitis, unspecified allergic rhinitis trigger J30.89 and Chronic kidney disease, unspecified stage N18.9 [facility] [address], [place] [address]- 7039 Jul, [facility] [id number] [place] [address] 50940- 2647 Jul, Seizure disorder G40.909 [facility] [address], [place] [address]- 5860 Jun, [facility] [address] [place] [address] 70319- 6427 Jun, [facility] [address] [place] [id number] Jun, Perennial allergic rhinitis, unspecified allergic rhinitis trigger J30.89 [facility] [id number] [place] [address] [id number] Jun, [facility] [address] [place] [address] 94729- 5512 Jun, Seizure disorder G40.909 [facility] [id number] [place] [address] [id number] Jun, [facility] [id number] [place] [address] [id number] May, [facility] [address] [place] [address] 60879- 2698 May, [facility] [address] [place] [address] 64253- 0940 May, [facility] [address] [place] [address] 23486- 6468 May, [facility] [address] [place] [address] 91693- 7769 May, History of CVA with residual deficit I69.30 [facility] [address] [place] [address] 88337- 4628 May, [facility] [address] [place] [address] 57846- 4726 May, [facility] [address] [place] [address] 05464- 4670 May, [facility] [address] [place] [address] 39126- 5116 May, Seizure disorder G40.909 [facility] [address], [place] [address]- 2493 May, [facility] [address] [place] [address] May, Back pain M54.9 and Seizure disorder G40.909 [facility] [address] [facility] [id number], [place] [address]- 3035 Apr, [facility] [id number] [place] [address] 73381- 5761 Apr, Back pain M54.9 [facility] [id number] [place] [address] 82386- 0022 Mar, [facility] [address] [place] [address] Mar, Insomnia, unspecified type G47.00 [facility] [address] [facility] [id number] [place] [address] 14465- 8093 Mar, [facility] [id number] [place] [address] 88470- 0280 Feb, [facility] [id number] [place] [address] 17409- 0007 Feb, [facility] [id number] [place] [address] 11991- 6140 Feb, [facility] [id number] [place] [address] 54897- 3658 Jan, [facility] [address] [place] [address] 44934- 8200 Jan, [facility] [address] [place] [address] Jan, Seizure disorder G40.909 and Back pain M54.9 [facility] [address] [facility] [id number] [place] [address] 04332- 6311 Dec, [facility] [address] [facility] [id number] [place] [address] 82630- 3629 Dec, [facility] [id number] [place] [address] 86779- 2729 Dec, [facility] [id number] [place] [address] 75242- 4221 Nov, [facility] [id number] [place] [address] 57436- 9146 Nov, [facility] [id number] [place] [address] 19662- 3776 Nov, Back pain M54.9 [facility] [id number] [place] [address] 42564- 6228 October, [facility] [id number] [place] [address] 33582- 7559 October, Back pain M54.9 [facility] [id number] [place] [address] 80426- 4977 October, Seizure disorder G40.909 and B12 deficiency E53.8 [facility] [id number] [place] [address] 28392- 3152 Sep, History of CVA with residual deficit I69.30 [facility] [id number] [place] [address] 14676- 0670 Sep, [facility] [id number] [place] [address] 17928- 8797 Sep, [facility] [id number] [place] [address] 26692- 2795 Sep, Back pain M54.9 [facility] [id number] [place] [address] 62230- 0054 Sep, Seizure disorder G40.909 [facility] [address] [place] [address] 57774- 8936 Aug, Back pain M54.9 [facility] [id number] [place] [address] 78805- 6106 Aug, Seizure disorder G40.909 [facility] [id number] [place] [address] 38699- 0916 Aug, Back pain M54.9 [facility] [address] [place] [address] 48543- 6518 14 Aug, 2015 Heart failure, unspecified I50.9 [facility] [id number] [place] [address] 37759- 3120 14 Aug, 2015 Medication monitoring encounter Z51.81 [facility] [id number] [place] [address] 77153- 5896 15 Jul, 2015 [facility] [id number] [place] [address] 81557- 3955 09 Jul, 2015 Seizure disorder G40.909 [place] [id number] [place] [address] 70185- 6270 05 Jul, 2015 Back pain M54.9 [facility] [id number] [place] [address] 58197- 4880 Jun, [facility] [id number] [place] [address] 41536- 7270 Jun, [facility] [id number] [place] [address] 23576- 6408 Jun, Mental status change R41.82 ; History of CVA with residual deficit I69.30 ; Back pain M54.9 and Seizure disorder G40.909 [place] [address] [place] [address] 71602- 3465 Jun, [place] [id number] [place] [address] 09312- 8101 May, [facility] [id number] [place] [address] 56534- 2642 Apr, [place] [id number] [place] [address] 93676- 4624 Apr, Medication monitoring encounter Z51.81 [place] [address] [place] [address] 13587- 4296 Mar, Vomiting R11.10 [facility] [place] [facility] [address] [id number] [place] [address]- 7373 Mar, [facility] [address] [id number] [place] [address]- 7281 18 Feb, 2015 [facility] [place] [facility] [address] [id number] [place] [address] Feb, UTI (urinary tract infection) 599.0 [facility] [address] [id number] [place] [address] Jan, [facility] [address] [id number] [place] [address] Jan, [facility] [address] [id number] [place] [address] Jan, [facility] [address] [id number] [place] [address] Dec, [facility] [address] [id number] [place] [address] Dec, [facility] [place] [facility] [address] [id number] [place] [id number] Dec, [facility] [address] [id number] [place] [address] Dec, [facility] [address] [id number] [place] [address] Nov, UNKNOWN Nov, [facility] [place] [facility] [address] [id number] [place] [id number] October, [facility] [place] [facility] [address] [id number] [place] [address] 14 Sep, 2014 [facility] [place] [facility] [address] [id number] [place] [address] Sep, [facility] [place] [facility] [address] [id number] [place] [address] Aug, [facility] [place] [facility] [address] [id number] [place] [address] Aug, [facility] [place] [facility] [address] [id number] [place] [address] Jul, [facility] [place] [facility] [address] [id number] [place] [id number] Jul, 2014 [facility] [place] [facility] [address] [id number] [place] [address] Jul, 2014 [facility] [place] [facility] [address] [id number] [place] [address] Jul, [facility] [place] [facility] [address] [id number] [place] [address] Jul, [facility] [place] [facility] [address] [id number] [place] [address] 67[address] Jun, [facility] [place] [facility] [address] [id number] [place] [address] 7542 Jun, [facility] [place] [facility] [address] [id number] [place] [address] 2895 Jun, [facility] [place] [facility] [address] [id number] [place] [address] 1824 Jun, [facility] [place] [facility] [address] [id number] [place] [address] 4722 Jun, [facility] [place] [facility] [address] [id number] [place] [address]- 1399 Jun, [facility] [place] [facility] [address] [id number] [place] [address] 9161 Jun, [facility] [place] [facility] [address] [id number] [place] [address]- 7111 Jun, [facility] [place] [facility] [address] [id number] [place] [address] 2546 Jun, [facility] [place] [facility] [address] [id number] [place] [address]- 1258 Jun, [facility] [place] [facility] [address] [id number] [place] [address] 3812 Jun, [facility] [place] [facility] [address] [id number] [place] [address]- 5129 Jun, [facility] [place] [facility] [address] [id number] [place] [address]- 5[address] Jun, [facility] [place] [facility] [address] [id number] [place] [address]- 0448 Jun, [facility] [place] [facility] [address] [id number] [place] [address]- 3630 Jun, [facility] [place] [facility] [address] [id number] [place] [address]- 5223 Jun, [facility] [place] [facility] [address] [id number] [place] [address]- 4742 Jun, [facility] [place] [facility] [address] [id number] [place] [address]- 4716 Jun, [facility] [place] [facility] [address] [id number] [place] [address]- 2948 May, [facility] [place] [facility] [address] [id number] [place] [address]- 3078 30 May, 2014 [facility] [place] [facility] [address] [id number] [place] [address]- 7727 30 May, 2014 [facility] [place] [facility] [address] [id number] [place] [address]- 9968 30 May, 2014 [facility] [place] [facility] [address] [id number] [place] [address]- 8502 19 May, 2014 [facility] [place] [facility] [address] [id number] [place] [address]- 7922 16 May, 2014 [facility] [place] [facility] [address] [id number] [place] [address]- 2397 May, [facility] [place] [facility] [address] [id number] [place] [address]- 9218 May, [facility] [address] [id number] [place] [address]- 1121 May, [facility] [address] [place] [id number] May, [facility] [place] [facility] [address] [id number] [place] [address]- 3386 May, [facility] [place] [facility] [address] [id number] [place] [address]- 3462 May, [facility] [place] [facility] [address] [id number] [place] [address]- 6146 May, [facility] [place] [facility] [address] [id number] [place] [address]- 4511 Apr, [facility] [place] [facility] [address] [id number] [place] [address]- 1395 Apr, [facility] [place] [facility] [address] [id number] [place] [address]- 7681 Apr, [facility] [place] [facility] [address] [id number] [place] [address]- 0971 Apr, [facility] [place] [facility] [address] [id number] [place] [address]- 9486 Apr, [facility] [place] [facility] [address] [id number] [place] [address]- 1049 Apr, [facility] [place] [facility] [address] [id number] [place] [address]- 2508 Mar, [facility] [place] [facility] [address] [id number] [place] [address]- 9413 Mar, [facility] [place] [facility] [address] [id number] [place] [address]- 1066 Mar, [facility] [place] [facility] [address] [id number] [place] [address]- 3480 Mar, [facility] [place] [facility] [address] [id number] [place] [address]- 7220 Mar, [facility] [address] [id number] [place] [address] 0889 Mar, [facility] [address] [id number] [place] [address]- 0523 24 Feb, 2014 [facility] [address] [id number] [place] [address]- 8859 24 Feb, 2014 [facility] [address] [id number] [place] [address]- 5175 Feb, [facility] [address] [id number] [place] [address]- 7776 Feb, [facility] [address] [id number] [place] [address]- 1169 Feb, [facility] [address] [id number] [place] [address]- 7961 Feb, [facility] [address] [id number] [place] [address]- 0798 Feb, [facility] [address] [id number] [place] [address]- 4579 Feb, [facility] [address] [id number] [place] [address]- 1430 Feb, [facility] [address] [id number] [place] [address]- 2549 Feb, [facility] [address] [id number] Feb, [facility] [address] [id number] [place] [address]- 5899 Feb, [facility] [address] [id number] [place] [address]- 9129 Jan, [facility] [address] [id number] [place] [address]- 0105 Jan, [facility] [place] [facility] [address] [id number] [place] [address]- 6976 Dec, 2013 [facility] [place] [facility] [address] [id number] [place] [address]- 3221 Dec, [facility] [place] [facility] [address] [id number] [place] [address]- 1017 Dec, [facility] [place] [facility] [address] [id number] [place] [address]- 8064 Dec, [facility] [place] [facility] [address] [id number] [place] [address]- 7132 Dec, [facility] [place] [facility] [address] [id number] [place] [address]- 9259 Dec, [facility] [place] [facility] [address] [id number] [place] [address]- 5901 Dec, [facility] [place] [facility] [address] [id number] [place] [address]- 7377 Dec, [facility] [place] [facility] [address] [id number] [place] [address]- 6674 Dec, [facility] [place] [facility] [address] [id number] [place] [address]- 6863 Dec, [facility] [place] [facility] [address] [id number] [place] [address]- 2379 Nov, [facility] [place] [facility] [address] [id number] [place] [address]- 4672 Nov, [facility] [place] [facility] [address] [id number] [place] [address]- 2042 Nov, [facility] [place] [facility] [address] [id number] [place] [address]- 3995 Nov, [facility] [place] [facility] [address] [id number] [place] [address]- 9499 Nov, [facility] [place] [facility] [address] [id number] [place] [address]- 4352 Nov, [facility] [place] [facility] [address] [id number] [place] [address]- 5466 Nov, [facility] [place] [facility] [address] [id number] [place] [address]- 5041 Nov, [facility] [place] [facility] [address] [id number] [place] [address]- 6732 Nov, [facility] [place] [facility] [address] [id number] [place] [address]- 0781 Nov, [facility] [place] [facility] [address] [id number] [place] [address]- 9891 Nov, [facility] [place] [facility] [address] [id number] [place] [address]- 1876 Nov, [facility] [place] [facility] [address] [id number] [place] [address]- 6796 Nov, [facility] [place] [facility] [address] [id number] [place] [address]- 2829 Nov, [facility] [place] [facility] [address] [id number] [place] [address]- 2937 October, [facility] [place] [facility] [address] [id number] [place] [address]- 3659 October, [facility] [place] [facility] [address] [id number] [place] [address]- 3273 October, [facility] [place] [facility] [address] [id number] [place] [address]- 7020 October, [facility] [place] [facility] [address] [id number] [place] [address]- 7628 October, [facility] [place] [facility] [address] [id number] [place] [address]- 3952 October, [facility] [place] [facility] [address] [id number] [place] [address]- 6899 October, [facility] [place] [facility] [address] [id number] [place] [address]- 2642 October, [facility] [address] [id number] [place] [address]- 7165 October, [facility] [address] [id number] [place] [address]- 2605 October, [facility] [address] [id number] [place] [address]- 5682 Sep, [facility] [address] [id number] [place] [address]- 5146 Sep, [facility] [address] [id number] [place] [address]- 0803 Sep, [facility] [address] [id number] [place] [address]- 6795 Sep, [facility] [address] [id number] [place] [address]- 5856 Sep, [facility] [address] [id number] [place] [address]- 1289 Sep, [facility] [address] [id number] [place] [address]- 5687 Sep, [facility] [address] [id number] [place] [address]- 1949 Sep, [facility] [place] [facility] [address] [id number] [place] [address]- 3481 Sep, [facility] [address] [id number] [place] [address]- 5559 Sep, [facility] [place] [facility] [address] [id number] [place] [address]- 2620 Aug, [facility] [place] [facility] [address] [id number] [place] [address]- 7971 Aug, [facility] [place] [facility] [address] [id number] [place] [address]- 4897 Aug, [facility] [place] [facility] [address] [id number] [place] [address]- 8351 10 Aug, 2013 [facility] [place] [facility] [address] [id number] [place] [address]- 1219 Aug, [facility] [place] [facility] [address] [id number] [place] [address]- 1913 Aug, [facility] [place] [facility] [address] [id number] [place] [address]- 0491 Aug, [facility] [place] [facility] [address] [id number] [place] [address]- 8730 Aug, [facility] [place] [facility] [address] [id number] [place] [address]- 2872 Aug, [facility] [place] [facility] [address] [id number] [place] [address]- 5852 Jul, [facility] [place] [facility] [address] [id number] [place] [address]- 0382 Jul, [facility] [place] [facility] [address] [id number] [place] [address]- 0515 Jul, [facility] [place] [facility] [address] [facility] [id number] [place] [address]- 7465 Jul, [facility] [place] [facility] [address] [id number] [place] [address]- 3600 Jul, [facility] [place] [facility] [address] [id number] [place] [address]- 6439 Jul, [facility] [place] [facility] [address] [id number] [place] [address]- 0107 Jul, [facility] [place] [facility] [address] [id number] [place] [address]- 8647 Jul, [facility] [place] [facility] [address] [facility] [id number] [place] [address]- 8029 Jul, [facility] [place] [facility] [address] [id number] [place] [address]- 8290 17 Jul, 2013 [facility] [place] [facility] [address] [id number] [place] [address]- 7318 Jul, [facility] [place] [facility] [address] [id number] [place] Jul, [facility] [place] [facility] [address] [id number] [place] [address]- 0186 Jul, [facility] [place] [facility] [address] [id number] [place] [address]- 9940 Jul, [facility] [place] [facility] [address] [id number] [place] [address]- 8585 Jul, [facility] [place] [facility] [address] [id number] [place] [address]- 6237 Jul, [facility] [place] [facility] [address] [id number] [place] [address]- 5739 Jun, [facility] [place] [facility] [address] [id number] [place] [address]- 8376 Jun, [facility] [place] [facility] [address] [id number] [place] [address]- 2768 Jun, [facility] [place] [facility] [address] [id number] [place] [address]- 5038 Jun, [facility] [place] [facility] [address] [id number] [place] [address]- 8772 Jun, [facility] [place] [facility] [address] [id number] [place] [address]- 3553 Jun, [facility] [place] [facility] [address] [id number] [place] [address]- 8967 May, [facility] [place] [facility] [address] [id number] [place] [address]- 4520 May, [facility] [place] [facility] [address] [id number], [place] [address]- 7446 May, [facility] [place] [facility] [address] [id number] [place] [address]- 8241 May, [facility] [place] [facility] [address] [id number], [place] [address]- 4878 Apr, [facility] [place] [facility] [address] [id number], [place] [address]- 2939 Apr, [facility] [place] [facility] [address] [id number], [place] [address]- 2684 Apr, [facility] [place] [facility] [address] [id number] [place] [address]- 6235 Apr, [facility] [place] [facility] [address] [id number], [place] [address]- 3108 Apr, [facility] [place] [facility] [address] [id number], [place] [address]- 8823 Apr, [facility] [place] [facility] [address] [id number], [place] [address]- 9953 Apr, [facility] [place] [facility] [address] [id number], [place] [address]- 4733 Apr, [facility] [place] [facility] [address] [id number], [place] [address]- 5508 Apr, [facility] [place] [facility] [address] [id number], [place] [address]- 4405 Apr, [facility] [place] [facility] [address] [id number], [place] [address]- 9018 Apr, [facility] [place] [facility] [address] [id number], [place] [address]- 3634 Apr, [facility] [place] [facility] [address] [id number], [place] [address]- 6202 Mar, [facility] [place] [facility] [address] [id number], [place] [address]- 4232 Mar, [facility] [place] [facility] [address] [id number] [place] [address]- 3791 16 Mar, 2012 [facility] [address] [id number] [place] [address]- 1664 16 Mar, 2013 [facility] [place] [facility] [address] [id number] [place] [address]- 2546 15 Mar, 2013 [facility] [address] [id number] [place] [address]- 6820 15 Mar, 2013 [facility] [place] [facility] [address] [id number] [place] [address] 2548 27 Feb, 2012 [facility] [address] [id number] [place] [address]- 3985 25 Feb, 2013 [facility] [address] [id number] [place] [address]- 8093 25 Feb, 2012 [facility] [place] [facility] [address] [id number] [place] [address]- 2544 23 Feb, 2012 [facility] [address] [id number] [place] [address]- 5353 17 Feb, 2013 [facility] [place] [facility] [address] [id number] [place] [address]- 6020 10 Feb, 2013 [facility] [address] [id number] [place] [address]- 2547 04 Feb, 2013 [facility] [place] [facility] [address] [id number] [place] [address] 2543 30 Jan, 2013 [facility] [place] [facility] [address] [id number] [place] [address]- 2541 20 Jan, 2013 [facility] [place] [facility] [address] [id number] [place] [address]- 8222 15 Jan, 2013 [facility] [place] [facility] [address] [id number] [place] [address]- 2543 14 Jan, 2013 [facility] [place] [facility] [address] [id number] [place] [address]- 7793 Jan, [facility] [address] [id number] [place] [address]- 5818 Jan, [facility] [place] [facility] [address] [id number] [place] [address]- 9526 Jan, [facility] [place] [facility] [address] [id number] [place] [address]- 1628 Dec, [facility] [place] [facility] [address] [id number] [place] [address]- 1038 Dec, [facility] [place] [facility] [address] [id number] [place] [address]- 3555 Dec, [facility] [place] [facility] [address] [id number] [place] [address]- 5512 Dec, [facility] [place] [facility] [address] [id number] [place] [address]- 7513 Dec, [facility] [place] [facility] [address] [id number] [place] [address]- 6549 Dec, [facility] [place] [facility] [address] [id number] [place] [address]- 5315 Nov, [facility] [place] [facility] [address] [id number] [place] [address]- 7463 Nov, [facility] [place] [facility] [address] [id number] [place] [address]- 1224 Nov, [facility] [place] [facility] [address] [id number] [place] [address]- 4017 Nov, [facility] [place] [facility] [address] [id number] [place] [address]- 2629 October, [facility] [place] [facility] [address] [id number] [place] [address]- 2156 October, [facility] [place] [facility] [address] [id number] [place] [address]- 7976 October, [facility] [place] [facility] [address] [id number], [place] [address]- 7660 October, [facility] [address] [id number] [place] [address]- 9027 30 Sep, 2012 [facility] [address] [id number] [place] [address]- 8147 Sep, [facility] [address] [id number] [place] [address]- 6760 16 Sep, 2012 [facility] [address] [id number] [place] [address]- 3867 Sep, [facility] [address] [id number] [place] [address]- 2235 Sep, [facility] [address] [id number] [place] [address]- 3260 Sep, [facility] [address] [id number] [address]- 7041 Sep, [facility] [address] [id number] [place] [address]- 3368 Sep, [facility] [address] [id number] [place] [address]- 5572 Aug, [facility] [address] [facility] [id number] [place] [address]- 0903 Aug, [facility] [address] [id number] [place] [address]- 3591 05 Aug, 2012 [facility] [address] [id number] [place] [address]- 1066 18 Jul, 2012 [facility] [place] [facility] [address] [id number] [place] [address] 08 Jul, 2012 [facility] [place] [facility] [address] [id number] [place] [address] 07 Jul, 2012 [facility] [address] [facility] [id number] [address] [address] 06 Jul, 2012 [facility] [address] [id number] [place] [address] Jul, [facility] [place] [facility] [address] [id number] [place] [address] Jun, [facility] [place] [facility] [address] [id number] [place] [address] Jun, [facility] [address] [id number] [place] [address] Jun, [facility] [address] [id number] [place] [address] May, [facility] [address] [id number] [place] [address] May, [facility] [address] [id number] [place] [address] May, [facility] [address] [id number] [place] [address] May, [facility] [place] [facility] [address] [id number] [place] [address] May, [facility] [address] [id number] [place] [address] May, [facility] [place] [facility] [address] [id number] [place] [address] May, [facility] [place] [facility] [address] [id number] [place] [address] Apr, [facility] [place] [facility] [address] [id number] [place] [address] Apr, [facility] [place] [facility] [address] [id number] [place] [address] Apr, [facility] [place] [facility] [address] [id number] [place] [address]26 Apr, [facility] [place] [facility] [address] [id number] [place] [address] 125[address] Apr, [facility] [place] [facility] [address] [id number] [place] [address]- [address] Apr, [facility] [place] [facility] [address] [id number] [place] [address]- [address]365 Apr, [facility] [place] [facility] [address] [id number] [place] [address] Apr, [facility] [place] [facility] [address] [id number] [place] [address] 8816 Apr, [facility] [place] [facility] [address] [id number] [place] [address] Apr, [facility] [place] [facility] [address] [id number] [place] [address] Apr, [facility] [place] [facility] [address] [id number] [place] [address] Mar, [facility] [place] [facility] [address] [id number] [place] [address] 1228 Mar, [facility] [place] [facility] [address] [id number] [place] [address] Mar, [facility] [place] [facility] [address] [id number] [place] [address]- 2484 Mar, [facility] [place] [facility] [address] [id number], [place] [address] Mar, [facility] [place] [facility] [address] [id number], [place] [address] Mar, [facility] [place] [facility] [address] [id number] [place] [address]- [address] Mar, [facility] [place] [facility] [address] [id number], [place] [address] Mar, [facility] [place] [facility] [address] [id number] [place] [address]- 5656 16 Mar, 2012 [facility] [place] [facility] [address] [id number] [place] [address]- 7495 16 Mar, 2012 [facility] [place] [facility] [address] [id number] [place] [address]- [address]81 04 Mar, 2012 [facility] [place] [facility] [address] [id number] [place] [address] 2011 [facility] [place] [facility] [address] [id number] [place] [address] 8066 27 Sep, 2011 [facility] [place] [facility] [address] [id number] [place] [address]- [address]666 27 Feb, 2011 [facility] [place] [facility] [address] [id number] [place] [address]- 44[address] 26 Feb, 2011 [facility] [place] [facility] [address] [id number] [place] [address]- [address] 24 Feb, 2011 [facility] [place] [facility] [address] [id number] [place] [address]- 8190 19 Feb, 2011 [facility] [address] [id number] [place] [address]- 9829 18 Feb, 2012 [facility] [place] [facility] [address] [id number] [place] [address]247 18 Feb, 2012 [facility] [address] [id number] [place] [address]- [address]31 18 Feb, 2012 [facility] [place] [facility] [address] [id number] [place] [address] Jan, [facility] [place] [facility] [address] [id number] [place] [address] 2545 Jan, [facility] [place] [facility] [address] [id number] [place] [address]- [address] Jan, [facility] [place] [facility] [address] [id number] [place] [address]- 1709 Jan, [facility] [place] [facility] [address] [id number] [place] [address]- 6597 Dec, [facility] [place] [facility] [address] [id number] [place] [address]- 5726 Dec, [facility] [place] [facility] [address] [id number] [place] [address]- 4364 Dec, [facility] [place] [facility] [address] [id number] [place] [address]- [address]365 Dec, [facility] [place] [facility] [address] [id number] [place] [address]- 5133 Dec, [facility] [place] [facility] [address] [id number] [place] [address]- 9685 Dec, [facility] [place] [facility] [address] [id number] [place] [address]- 9125 Dec, [facility] [place] [facility] [address] [id number] [place] [address]- 7605 Dec, [facility] [place] [facility] [address] [id number] [place] [address]- 9872 Dec, [facility] [place] [facility] [address] [id number] [place] [address]- 8317 Dec, [facility] [place] [facility] [address] [id number] [place] [address]- 8581 Dec, [facility] [place] [facility] [address] [id number] [place] [address]- 4278 Dec, [facility] [place] [facility] [address] [id number] [place] [address]- 7770 Dec, [facility] [place] [facility] [address] [id number] [place] [address]- 4933 Dec, [facility] [place] [facility] [address] [id number] [place] [address]- 6361 Nov, [facility] [place] [facility] [address] [id number] [place] [address]- 0021 Nov, [facility] [place] [facility] [address] [id number] [place] [address]- 7[address] Nov, [facility] [address] [id number] [place] [address]- 0691 Nov, [facility] [place] [facility] [address] [id number] [place] [address]- 0464 Nov, [facility] [address] [facility] [facility] [id number] [place] [address] Nov, [facility] [address] [id number] [place] [address] October, [facility] [address] [id number] [place] [address] October, [facility] [address] [id number] [place] [address] October, [facility] [address] [id number] [address] October, [facility] [address] [id number] [place] [address] Sep, [facility] [address] [id number] [place] [address] 17 Sep, 2011 [facility] [address] [facility] [id number] [place] [address] 13 Sep, 2011 [facility] [address] [id number] [place] [address] Sep, [facility] [place] [facility] [address] [id number] [place] [address] Sep, [facility] [place] [facility] [address] [id number] [place] [address] Aug, [facility] [place] [facility] [address] [id number] [place] [address] Aug, [facility] [place] [facility] [address] [facility] [id number] [place] [address] Aug, [facility] [place] [facility] [address] [id number] [place] [address] Aug, [facility] [address] [id number] [place] [address] Aug, [facility] [address] [id number] [place] [address] Aug, [facility] [address] [id number] [place] [address] Aug, [facility] [address] [id number] [place] [address] Jul, [facility] [address] [facility] [id number] [place] [address] Jul, [facility] [address] [facility] [id number] [place] [address] Jul, [facility] [address] [facility] [id number] [place] [address] Jul, [facility] [address] [facility] [id number] [place] [address] Jun, [address] [id number] Jun, [facility] [address] [facility] [id number], [place] [address] Jun, [facility] [address] [facility] [id number], [place] [address] Jun, [facility] [address] [facility] [id number], [place] [address] Jun, [facility] [address] [facility] [id number] [place] [address] 99[address] Jun, [facility] [address] [facility] [id number] [place] [address] Jun, [facility] [address] [facility] [id number] [place] [address] Jun, [facility] [place] [facility] [address] [id number] [place] [address] May, [facility] [place] [facility] [address] [id number] [place] [address] 29[address] May, [facility] [place] [facility] [address] [id number] [place] [address] May, [facility] [place] [facility] [address] [id number] [place] [address] May, [facility] [place] [facility] [address] [id number] [place] [address] May, [facility] [place] [facility] [address] [id number] [place] [address]400 May, [facility] [place] [facility] [address] [id number] [place] [address]52 May, [facility] [place] [facility] [address] [id number], [place] [address] Apr, [facility] [place] [facility] [address] [id number] [place] [address] Apr, [facility] [place] [facility] [address] [id number], [place] [address] Apr, [facility] [place] [facility] [address] [id number], [place] [address] Mar, [facility] [place] [facility] [address] [id number], [place] [address] Mar, [facility] [place] [facility] [address] [id number], [place] [address]- [address] 14 Mar, 2011 [facility] [place] [facility] [address] [id number], [place] [address] Mar, [facility] [place] [facility] [address] [id number], [place] [address]77 10 Mar, 2011 [facility] [place] [facility] [address] [id number], [place] [address] 10 Mar, 2011 [facility] [address] [id number] [place] [address]- 2699 10 Mar, 2011 [facility] [place] [facility] [address] [id number] [place] [address]- [address]87 11 Jan, 2011 [facility] [address] [facility] [id number] [place] [address]- [address]226 27 May, 2010 [facility] [place] [facility] [address] [id number] [place] [address]- 7580 21 May, 2010 [facility] [address] [id number] [place] [address], [place] [address]- [address] 13 May, 2010 [facility] [place] [facility] [address] [id number] [place] [address]30 May, [facility] [address] [facility] [id number] [place] [address]- 9[address] May, [facility] [place] [facility] [address] [id number] [place] [address]- [address]101 06 May, 2010 [facility] [place] [facility] [address] [id number] [address] 29 Apr, 2010 [facility] [place] [facility] [address] [facility] [id number] [place] [address]- 5[address] 26 Apr, 2010 [facility] [place] [facility] [address] [id number], [place] [address] Apr, [facility] [place] [facility] [address] [id number], [place] [address] 18 Apr, 2010 [facility] [place] [facility] [address] [id number], [place] [address] 15 Apr, 2010 [facility] [place] [facility] [address] [facility] [id number], [place] [address]- [address] 12 Apr, 2010 [facility] [place] [facility] [address] [facility] [id number], [place] [address]- [address] 12 Apr, 2010 [facility] [place] [facility] [id number], [place] [address] Apr, [facility] [id number], [place] [address] Apr, [facility] [id number], [place] [address] Apr, [facility] [id number], [place] [address] Mar, [facility] [id number], [place] [address] Mar, [facility] [id number] [place] [address] Mar, [facility] [id number], [place] [address] Mar, [facility] [id number], [place] [address] Mar, [facility] [id number], [place] [address] Dec, [facility] [id number], [place] [address] Nov, IMMUNIZATIONS No Known Immunizations SOCIAL HISTORY Never Assessed REASON FOR VISIT Controlled Med Refill PLAN OF CARE VITAL SIGNS MEDICATIONS Medication Instructions Dosage Frequency Start Date End Date Duration Status Fentanyl 75 MCG/HR Transdermal every 72 hours 1 patch to skin Jan, Active RESULTS No Results PROCEDURES No Known [...] surgery and skin graft, cholecysectomy Hospitalization History [facility]2016 [facility]2017 [facility] 01/2018
--- OUTSIDE RECORDS SUMMARY | 2018-07-05 14:59 | XMS REPORT ---
Author Author NAHOMY BETH Organization [facility] Address [address] [place] [address] Care Team Providers Care Library Director Name Role Phone NAHOMY BETH Unavailable PROBLEMS Type Condition ICD9-CM Code MNR03-WQ Code Onset Dates Condition Status SNOMED Code Problem Anemia, unspecified type D64.9 Active 807182447 Problem Personality disorder F60.9 Active 22838802 Problem Factitious disorder imposed on self, recurrent episode F68.10 Active 82003586 Problem Ventral hernia without obstruction or gangrene K43.9 Active 276256125 Problem Allergic state, subsequent encounter T78.40XD Active 032069118 Problem Anxiety F41.9 Active 54199419 Problem Age-related osteoporosis without current pathological fracture M81.0 Active 35144089 Problem Unspecified psychosis not due to a substance or known physiological condition F29 Active 70577763 Problem Iron deficiency anemia, unspecified iron deficiency anemia type D50.9 Active 90611645 Problem History of CVA with residual deficit I69.30 Active 716054299 Problem Seizure disorder G40.909 Active 658434421 Problem Perennial allergic rhinitis, unspecified allergic rhinitis trigger J30.89 Active 953499336 Problem Chronic kidney disease, unspecified stage N18.9 Active 123387564 Problem Back pain M54.9 Active 635907532 Problem Gastroesophageal reflux disease without esophagitis K21.9 Active 858514172 Problem Insomnia, unspecified type G47.00 Active 694791288 Problem History of colon polyps Z86.010 Active 638096495 ALLERGIES No Information ENCOUNTERS Encounter Location Date Diagnosis [facility] [id number] [address] Mar, [facility] [id number] [address] Mar, [facility] [address], [place] [address] 17 Feb, 2018 [facility] [id number] [place] [address] 85821- 9647 Feb, Unspecified psychosis not due to a substance or known physiological condition F29 ; Personality disorder F60.9 and Factitious disorder imposed on self, recurrent episode F68.10 [facility] [id number] [place] [address] 38700- 3830 05 Feb, 2018 Back pain M54.9 [facility] [id number] [place] [address] 98253- 3906 Jan, Unspecified psychosis not due to a substance or known physiological condition F29 ; Personality disorder F60.9 and Factitious disorder imposed on self, recurrent episode F68.10 [facility] [id number] [place] [address] 73892- 4815 Jan, [facility] [id number] [place] [address] 98492- 5120 Jan, Back pain M54.9 and Seizure disorder G40.909 [facility] [id number] [place] [address] 97038- 4754 Jan, Back pain M54.9 [facility] [id number] [place] [address] 52566- 1117 Jan, Back pain M54.9 [facility] [id number] [place] [address] 56158- 1071 Jan, [facility] [id number] [place] [address] 95471- 4922 Jan, Unspecified psychosis not due to a substance or known physiological condition F29 ; Personality disorder F60.9 and Factitious disorder imposed on self, recurrent episode F68.10 [facility] [address] [address] 0158 Dec, Back pain M54.9 ; Seizure disorder G40.909 ; Ventral hernia without obstruction or gangrene K43.9 and History of CVA with residual deficit I69.30 [facility] [id number] [place] [address] 99217- 0883 Dec, Unspecified psychosis not due to a substance or known physiological condition F29 ; Personality disorder F60.9 and Factitious disorder imposed on self, recurrent episode F68.10 [facility] [id number] [place] [address] 22413- 3996 Dec, [facility] [id number] [place] [address] 67577- 3170 Dec, Back pain M54.9 [facility] [address] 49234- 6505 Dec, Factitious disorder imposed on self, recurrent episode F68.10 ; Personality disorder F60.9 ; Insomnia, unspecified type G47.00 and Anxiety F41.9 [facility] [id number] [place] [address] 82411- 5130 Nov, Unspecified psychosis not due to a substance or known physiological condition F29 ; Personality disorder F60.9 and Factitious disorder imposed on self, recurrent episode F68.10 [facility] [id number] [place] [address] 63407- 3446 Nov, Back pain M54.9 [facility] [id number] [place] [address] 71069- 7353 Nov, Unspecified psychosis not due to a substance or known physiological condition F29 ; Personality disorder F60.9 and Factitious disorder imposed on self, recurrent episode F68.10 [facility] [id number] [place] [address] 67498- 4401 October, [facility] [id number] [place] [address] 28582- 1860 October, [facility] [id number] [place] [address] 19242- 1024 October, Unspecified psychosis not due to a substance or known physiological condition F29 ; Personality disorder F60.9 and Factitious disorder imposed on self, recurrent episode F68.10 [facility] [id number] [place] [address] 37675- 3853 October, Back pain M54.9 [facility] [id number] [place] [address] 30608- 2920 October, Seizure disorder G40.909 ; Back pain M54.9 and Allergic state, subsequent encounter T78.40XD [facility] [id number] [place] [address] 60680- 3960 October, [facility] [id number] [place] [address] 75093- 0004 Sep, Back pain M54.9 [facility] [id number] [place] [address] 77060- 3666 Sep, Unspecified psychosis not due to a substance or known physiological condition F29 ; Personality disorder F60.9 and Factitious disorder imposed on self, recurrent episode F68.10 [facility] [address] [place] [address] 15106- 8090 Sep, [facility] [id number] [place] [address] 75631- 3831 Sep, [facility] [address] [place] [address] 05302- 5611 Sep, [facility] [id number] [place] [address] 78584- 6209 Sep, [facility] [address] [address] 7902 Aug, [facility] [id number] [place] [address] 51724- 0256 Aug, Back pain M54.9 [facility] [address] [place] [address] 35635- 5282 15 Mar, 2018 Factitious disorder imposed on self, recurrent episode F68.10 ; Personality disorder F60.9 ; Insomnia, unspecified type G47.00 and Anxiety F41.9 [facility] [address] [address] Aug, Back pain M54.9 ; Iron deficiency anemia, unspecified iron deficiency anemia type D50.9 ; Chronic kidney disease, unspecified stage N18.9 and Breast cancer screening Z12.31 [facility] [id number] [place] [address] [id number] Jul, Back pain M54.9 [facility] [id number] [place] [address] [id number] Jul, [facility] [id number] [place] [address] [id number] Jul, [facility] [id number] [place] [address] [id number] Jun, Back pain M54.9 [facility] [id number] [id number] Jun, [facility] [id number] [place] [address] [id number] Jun, Back pain M54.9 [facility] [id number] [address] 3149 Jun, Back pain M54.9 ; Seizure disorder G40.909 and Age-related osteoporosis without current pathological fracture M81.0 [facility] [id number] [id number] May, [facility] [address] [address] 2703 May, Back pain M54.9 [facility] [address] [address] Apr, Back pain M54.9 ; Encounter for immunization Z23 ; Gastroesophageal reflux disease without esophagitis K21.9 ; Age-related osteoporosis without current pathological fracture M81.0 and Chronic pruritus L29.9 [facility] [address] [place] [address] 14623- 9549 16 Apr, 2017 History of CVA with residual deficit I69.30 [facility] [address] [place] [address] 58524- 2696 16 Apr, 2017 Factitious disorder imposed on self, recurrent episode F68.10 and Personality disorder F60.9 [facility] [id number] [place] [address] [id number] Apr, Back pain M54.9 [facility] [id number] [place] [address] 20434- 9454 Mar, Factitious disorder imposed on self, recurrent episode F68.10 [facility] [id number] [place] [address] 89145- 8091 Mar, [facility] [id number] [place] [address] [id number] Mar, [facility] [id number] [place] [address] [id number] Mar, Back pain M54.9 [facility] [id number] [place] [address] 30283- 7619 05 Mar, 2017 Back pain M54.9 ; Seizure disorder G40.909 and Age-related osteoporosis without current pathological fracture M81.0 [facility] [address] [place] [address] 30780- 3160 19 Feb, 2017 History of CVA with residual deficit I69.30 [facility] [address] [place] [address] 28385- 5932 19 Feb, 2017 Factitious disorder imposed on self, recurrent episode F68.10 and Personality disorder F60.9 [facility] [address], [place] [address]- 0278 15 Feb, 2017 Back pain M54.9 [facility] [id number] [place] [address] 73759- 7326 Feb, [facility] [id number] [address]- 2350 Jan, [facility] [address] [place] [id number] Jan, Age- related osteoporosis without current pathological fracture M81.0 and Allergic state, subsequent encounter T78.40XD [facility] [id number] [address] Jan, Factitious disorder imposed on self, recurrent episode F68.10 and Personality disorder F60.9 [facility] [id number], [place] [address]- 4121 Dec, Back pain M54.9 [facility] [id number] [address]- 0507 Dec, Personality disorder F60.9 and Factitious disorder imposed on self, recurrent episode F68.10 [facility] [id number] [id number] Dec, Back pain M54.9 [facility] [id number] [place] [address] [id number] Dec, [facility] [id number] [id number] Dec, [facility] [id number], [place] [address]- 0300 Dec, [facility] [address], [place] [address]- 0612 Nov, [facility] [id number] [address]- 5051 Nov, Back pain M54.9 ; Anemia, unspecified type D64.9 and History of colon polyps Z86.010 [facility] [id number], [place] [address]- 3577 Nov, Back pain M54.9 [facility] [id number] [id number] October, Back pain M54.[address] [id number] October, Back pain M54.9 and Gastroesophageal reflux disease without esophagitis K21.9 [facility] [address] [id number] [address] Sep, [facility] [address] [address] 6240 Sep, [facility] [id number] [address] 4578 Sep, [facility] [address], [place] [address]- 2353 Sep, [facility] [address], [place] [address]- 0841 Sep, [facility] [address], [place] [address]- 9236 Sep, Seizure disorder G40.909 [facility] [id number], [place] [address]- 5456 Sep, Back pain M54.9 [facility] [id number], [place] [address] 1986 Sep, [facility] [address], [place] [address]- 0526 Aug, Back pain M54.9 [facility] [id number], [place] [address] 2546 29 Aug, 2016 Seizure disorder G40.909 [facility] [address] [id number] [id number] Aug, [facility] [address] [id number] [address] 16 Aug, 2016 Back pain M54.9 [facility] [address] [id number] [id number] Aug, Back pain M54.9 [facility] [id number] [address] Aug, Back pain M54.9 [facility] [address] [place] [id number] Jul, Weakness R53.1 [facility] [address] [place] [address] 77709- 9116 Jul, Seizure disorder G40.909 [facility] [id number] [place] [address] 87000- 1667 Jul, [facility] [id number] [place] [address] 12104- 1225 Jul, Breast cancer screening Z12.39 [facility] [id number] [place] [address] 86440- 6092 Jul, [facility] [id number] [place] [address] 23793- 3415 Jul, [facility] [id number] [place] [address] 21668- 0009 Jul, [facility] [address] [place] [address] 44055- 9977 Jul, Seizure disorder G40.909 ; Fatigue, unspecified type R53.83 ; Perennial allergic rhinitis, unspecified allergic rhinitis trigger J30.89 and Chronic kidney disease, unspecified stage N18.9 [facility] [address], [place] [address]- 0254 Jul, [facility] [id number] [place] [address] 04857- 0473 Jul, Seizure disorder G40.909 [facility] [address], [place] [address]- 9278 Jun, [facility] [address] [place] [address] 42578- 5667 Jun, [facility] [address] [place] [id number] Jun, Perennial allergic rhinitis, unspecified allergic rhinitis trigger J30.89 [facility] [id number] [place] [address] [id number] Jun, [facility] [address] [place] [address] 06337- 0255 Jun, Seizure disorder G40.909 [facility] [id number] [place] [address] [id number] Jun, [facility] [id number] [place] [address] [id number] May, [facility] [address] [place] [address] 90746- 0399 May, [facility] [address] [place] [address] 80483- 6008 May, [facility] [address] [place] [address] 64777- 7004 May, [facility] [address] [place] [address] 04947- 5294 May, History of CVA with residual deficit I69.30 [facility] [address] [place] [address] 68780- 8716 May, [facility] [address] [place] [address] 48669- 9131 May, [facility] [address] [place] [address] 97570- 7731 May, [facility] [address] [place] [address] 51488- 6190 May, Seizure disorder G40.909 [facility] [address], [place] [address]- 7146 May, [facility] [address] [place] [address] May, Back pain M54.9 and Seizure disorder G40.909 [facility] [address] [facility] [id number] [address]- 3875 Apr, [facility] [id number] [place] [address] 08822- 7960 Apr, Back pain M54.9 [facility] [id number] [place] [address] 51582- 5955 Mar, [employer] [facility] [address] [place] [address] Mar, Insomnia, unspecified type G47.00 [facility] [address] [facility] [id number] [place] [address] 00752- 0287 Mar, [facility] [id number] [place] [address] 44845- 6817 Feb, [facility] [id number] [place] [address] 31026- 2077 Feb, [facility] [id number] [place] [address] 32480- 0098 Feb, [facility] [id number] [place] [address] 83702- 3866 Jan, [facility] [address] [place] [address] 17832- 1691 Jan, [facility] [employer] [facility] [address] [place] [address] Jan, Seizure disorder G40.909 and Back pain M54.9 [facility] [address] [facility] [id number] [place] [address] 12898- 6806 Dec, [facility] [address] [facility] [id number] [place] [address] 51388- 8666 Dec, [facility] [id number] [place] [address] 74635- 4187 Dec, [facility] [id number] [place] [address] 29180- 0250 Nov, [facility] [id number] [place] [address] 44987- 8206 Nov, [facility] [id number] [place] [address] 45584- 8526 Nov, Back pain M54.9 [facility] [id number] [place] [address] 26087- 8555 October, [facility] [id number] [place] [address] 41079- 1722 October, Back pain M54.9 [facility] [id number] [place] [address] 26049- 3142 October, Seizure disorder G40.909 and B12 deficiency E53.8 [facility] [id number] [place] [address] 60838- 4153 Sep, History of CVA with residual deficit I69.30 [facility] [id number] [place] [address] 79030- 1536 Sep, [facility] [id number] [place] [address] 78573- 4666 Sep, [facility] [id number] [place] [address] 52754- 2685 Sep, Back pain M54.9 [facility] [id number] [place] [address] 18177- 7579 Sep, Seizure disorder G40.909 [facility] [address] [place] [address] 62059- 9646 Aug, Back pain M54.9 [facility] [id number] [place] [address] 37317- 1726 Aug, Seizure disorder G40.909 [facility] [id number] [place] [address] 11082- 7476 Aug, Back pain M54.9 [facility] [address] [place] [address] 45387- 9710 14 Aug, 2015 Heart failure, unspecified I50.9 [facility] [id number] [place] [address] 53673- 7311 14 Aug, 2015 Medication monitoring encounter Z51.81 [facility] [id number] [place] [address] 28493- 2426 15 Jul, 2015 [facility] [id number] [place] [address] 26095- 6226 09 Jul, 2015 Seizure disorder G40.909 [facility] [id number] [place] [address] 18213- 0165 05 Jul, 2015 Back pain M54.9 [facility] [id number] [place] [address] 74547- 2179 Jun, [facility] [id number] [place] [address] 97221- 1289 Jun, [facility] [id number] [place] [address] 70662- 4069 Jun, Mental status change R41.82 ; History of CVA with residual deficit I69.30 ; Back pain M54.9 and Seizure disorder G40.909 [facility] [facility] [address] [place] [address] 89864- 3636 Jun, [facility] [id number] [place] [address] 71867- 1034 May, [facility] [id number] [place] [address] 06439- 2654 Apr, [facility] [facility] [id number] [place] [address] 90239- 5670 Apr, Medication monitoring encounter Z51.81 [facility] [facility] [id number] [place] [address] 77687- 2956 Mar, Vomiting R11.10 [facility] [place] [facility] [address] [id number] [place] [address]- 1904 Mar, [facility] [address] [id number] [place] [address]- 7489 18 Feb, 2015 [facility] [place] [facility] [address] [id number] [place] [address]- 8399 Feb, UTI (urinary tract infection) 599.0 [facility] [address] [id number] [place] [address]- 9865 Jan, [facility] [address] [id number] [place] [address]- 8115 Jan, [facility] [address] [id number] [place] [address]- 1344 Jan, [facility] [address] [id number] [place] [address]- 5295 Dec, [facility] [address] [id number] [place] [address]- 8442 Dec, [facility] [place] [facility] [address] [id number] [place] [address] Dec, [facility] [address] [id number] [place] [address] Dec, [facility] [address] [id number] [place] [address] Nov, UNKNOWN Nov, [facility] [place] [facility] [address] [id number] [place] [address] October, [facility] [place] [facility] [address] [id number] [place] [address] 14 Sep, 2014 [facility] [place] [facility] [address] [id number] [place] [address] Sep, [facility] [place] [facility] [address] [id number] [place] [address] Aug, [facility] [place] [facility] [address] [id number] [place] [address] Aug, [facility] [place] [facility] [address] [id number] [place] [address] Jul, [facility] [place] [facility] [address] [id number] [place] [address] Jul, 2014 [facility] [place] [facility] [address] [id number] [place] [address] Jul, 2014 [facility] [place] [facility] [address] [id number] [place] [address] Jul, [facility] [place] [facility] [address] [id number] [place] [address] Jul, [facility] [place] [facility] [address] [id number] [place] [address] Jun, [facility] [place] [facility] [address] [id number] [place] [address] Jun, [facility] [place] [facility] [address] [id number] [place] [address] Jun, [facility] [place] [facility] [address] [id number] [place] [address] 5208 Jun, [facility] [place] [facility] [address] [id number] [place] [address] 4617 Jun, [facility] [place] [facility] [address] [id number] [place] [address] 6[address] Jun, [facility] [place] [facility] [address] [id number] [place] [address] 9102 Jun, [facility] [place] [facility] [address] [id number] [place] [address] 0711 Jun, [facility] [place] [facility] [address] [id number] [place] [address] 2546 Jun, [facility] [place] [facility] [address] [id number] [place] [address] 1177 Jun, [facility] [place] [facility] [address] [id number] [place] [address] 8349 Jun, [facility] [place] [facility] [address] [id number] [place] [address] 8798 Jun, [facility] [place] [facility] [address] [id number] [place] [address] 3942 Jun, [facility] [place] [facility] [address] [id number] [place] [address]- 0229 Jun, [facility] [place] [facility] [address] [id number] [place] [address]- 5585 Jun, [facility] [place] [facility] [address] [id number] [place] [address]- 4112 Jun, [facility] [place] [facility] [address] [id number] [place] [address]- 2207 Jun, [facility] [place] [facility] [address] [id number] [place] [address] 3855 Jun, [facility] [place] [facility] [address] [id number] [place] [address]- 5716 May, [facility] [place] [facility] [address] [id number] [place] [address]- [address]18 30 May, 2014 [facility] [place] [facility] [address] [id number] [place] [address] 6365 30 May, 2014 [facility] [place] [facility] [address] [id number] [place] [address]- 5524 30 May, 2014 [facility] [place] [facility] [address] [id number] [place] [address] 5220 19 May, 2014 [facility] [place] [facility] [address] [id number] [place] [address]- 8580 16 May, 2014 [facility] [place] [facility] [address] [id number] [place] [address]- 7782 May, [facility] [place] [facility] [address] [id number] [place] [address]- 2343 May, [facility] [address] [id number] [place] [address]- 5[address] May, [facility] [address] [place] [id number] May, [facility] [place] [facility] [address] [id number] [place] [address]- 8364 May, [facility] [place] [facility] [address] [id number] [place] [address]- 2323 May, [facility] [place] [facility] [address] [id number] [place] [address]- 9595 May, [facility] [place] [facility] [address] [id number] [place] [address]- 7061 Apr, [facility] [place] [facility] [address] [id number] [place] [address]- 3219 Apr, [facility] [place] [facility] [address] [id number] [place] [address] 1884 Apr, [facility] [place] [facility] [address] [id number] [place] [address]- 8235 Apr, [facility] [place] [facility] [address] [id number] [place] [address]- 9172 Apr, [facility] [place] [facility] [address] [id number] [place] [address]- 5094 Apr, [facility] [place] [facility] [address] [id number] [place] [address]- 1760 Mar, [facility] [place] [facility] [address] [id number] [place] [address] 4055 Mar, [facility] [place] [facility] [address] [id number] [place] [address]- 0416 Mar, [facility] [place] [facility] [address] [id number] [place] [address]- 8142 Mar, [facility] [place] [facility] [address] [id number] [place] [address] 1040 Mar, [facility] [address] [id number] [place] [address]- 2504 Mar, [facility] [address] [id number] [place] [address]- 9644 24 Feb, 2014 [facility] [address] [id number] [place] [address]- 4750 24 Feb, 2014 [facility] [address] [id number] [place] [address]- 5295 Feb, [facility] [address] [id number] [place] [address] 8928 Feb, [facility] [address] [id number] [place] [address]- 5705 Feb, [facility] [address] [id number] [place] [address]- 1797 Feb, [facility] [address] [id number] [place] [address]- 0076 Feb, [facility] [address] [id number] [place] [address]- 4550 Feb, [facility] [address] [id number] [place] [address] 0707 Feb, [facility] [address] [id number] [place] [address] 2545 Feb, [facility] [address] [place] [id number] Feb, [facility] [address] [id number] [place] [address] 7724 Feb, [facility] [address] [id number] [place] [address]- 1669 Jan, [facility] [address] [id number] [place] [address]- 0727 Jan, [facility] [place] [facility] [address] [id number] [place] [address] 2175 Dec, 2013 [facility] [place] [facility] [address] [id number] [place] [address]- 8166 Dec, [facility] [place] [facility] [address] [id number] [place] [address]- 7503 Dec, [facility] [place] [facility] [address] [id number] [place] [address]- 2053 Dec, [facility] [place] [facility] [address] [id number] [place] [address]- 5692 Dec, [facility] [place] [facility] [address] [id number] [place] [address]- 1446 Dec, [facility] [place] [facility] [address] [id number] [place] [address]- 7683 Dec, [facility] [place] [facility] [address] [id number] [place] [address]- 5154 Dec, [facility] [place] [facility] [address] [id number] [place] [address]- 1564 Dec, [facility] [place] [facility] [address] [id number] [place] [address]- 9871 Dec, [facility] [place] [facility] [address] [id number] [place] [address]- 4053 Nov, [facility] [place] [facility] [address] [id number] [place] [address]- 3286 Nov, [facility] [place] [facility] [address] [id number] [place] [address]- 8857 Nov, [facility] [place] [facility] [address] [id number] [place] [address]- 0673 Nov, [facility] [place] [facility] [address] [id number] [place] [address]- 5292 Nov, [facility] [place] [facility] [address] [id number] [place] [address]- 2032 Nov, [facility] [place] [facility] [address] [id number] [place] [address]- 5607 Nov, [facility] [place] [facility] [address] [id number] [place] [address]- 4865 Nov, [facility] [place] [facility] [address] [id number] [place] [address]- 8844 Nov, [facility] [place] [facility] [address] [id number] [place] [address]- 9723 Nov, [facility] [place] [facility] [address] [id number] [place] [address]- 2193 Nov, [facility] [place] [facility] [address] [id number] [place] [address]- 5169 Nov, [facility] [place] [facility] [address] [id number] [place] [address]- 8981 Nov, [facility] [place] [facility] [address] [id number] [place] [address]- 0588 Nov, [facility] [place] [facility] [address] [id number] [place] [address]- 7902 October, [facility] [place] [facility] [address] [id number] [place] [address]- 4060 October, [facility] [place] [facility] [address] [id number] [place] [address]- 0428 October, [facility] [place] [facility] [address] [id number] [place] [address]- 1855 October, [facility] [place] [facility] [address] [id number] [place] [address]- 6152 October, [facility] [place] [facility] [address] [id number] [place] [address]- 4486 October, [facility] [place] [facility] [address] [id number] [place] [address]- 5802 October, [facility] [place] [facility] [address] [id number] [place] [address]- 1424 October, [facility] [address] [id number] [place] [address]- 0897 October, [facility] [address] [id number] [place] [address]- 0995 October, [facility] [address] [id number] [place] [address]- 3038 Sep, [facility] [address] [id number] [place] [address]- 3279 Sep, [facility] [address] [id number] [place] [address]- 5409 Sep, [facility] [address] [id number] [place] [address]- 6025 Sep, [facility] [address] [id number] [place] [address]- 9158 Sep, [facility] [address] [id number] [place] [address]- 7901 Sep, [facility] [address] [id number] [place] [address]- 7528 Sep, [facility] [address] [id number] [place] [address]- 3680 Sep, [facility] [place] [facility] [address] [id number] [place] [address]- 6459 Sep, [facility] [address] [id number] [place] [address]- 6486 Sep, [facility] [place] [facility] [address] [id number] [place] [address]- 3614 Aug, [facility] [place] [facility] [address] [id number] [place] [address]- 1404 Aug, [facility] [place] [facility] [address] [id number] [place] [address]- 8802 Aug, [facility] [place] [facility] [address] [id number] [place] [address]- 4877 10 Aug, 2013 [facility] [place] [facility] [address] [id number] [place] [address]- 1655 Aug, [facility] [place] [facility] [address] [id number] [place] [address]- 2100 Aug, [facility] [place] [facility] [address] [id number] [place] [address]- 2000 Aug, [facility] [place] [facility] [address] [id number] [place] [address]- 6880 Aug, [facility] [place] [facility] [address] [id number] [place] [address]- 3673 Aug, [facility] [place] [facility] [address] [id number] [place] [address]- 9945 Jul, [facility] [place] [facility] [address] [id number] [place] [address]- 3637 Jul, [facility] [place] [facility] [address] [id number] [place] [address]- 1552 Jul, [facility] [place] [facility] [address] [facility] [id number] [place] [address]- 8491 Jul, [facility] [place] [facility] [address] [id number] [place] [address]- 8282 Jul, [facility] [place] [facility] [address] [id number] [place] [address]- 8554 Jul, [facility] [place] [facility] [address] [id number] [place] [address]- 9039 Jul, [facility] [place] [facility] [address] [id number] [place] [address]- 5799 Jul, [facility] [place] [facility] [address] [facility] [id number] [place] [address]- 2446 Jul, [facility] [place] [facility] [address] [id number] [place] [address]- 7398 17 Jul, 2013 [facility] [place] [facility] [address] [id number] [place] [address]- 6785 Jul, [facility] [place] [facility] [address] [id number] [place] Jul, [facility] [place] [facility] [address] [id number] [place] [address]- 2946 Jul, [facility] [place] [facility] [address] [id number] [place] [address]- 6710 Jul, [facility] [place] [facility] [address] [id number] [place] [address]- 6103 Jul, [facility] [place] [facility] [address] [id number] [place] [address]- 6192 Jul, [facility] [place] [facility] [address] [id number] [place] [address]- 8214 Jun, [facility] [place] [facility] [address] [id number] [place] [address]- 5485 Jun, [facility] [place] [facility] [address] [id number] [place] [address]- 5995 Jun, [facility] [place] [facility] [address] [id number] [place] [address]- 1099 Jun, [facility] [place] [facility] [address] [id number] [place] [address]- 8012 Jun, [facility] [place] [facility] [address] [id number] [place] [address]- 5538 Jun, [facility] [place] [facility] [address] [id number] [place] [address]- 5003 May, [facility] [place] [facility] [address] [id number] [place] [address]- 0316 May, [facility] [place] [facility] [address] [id number], [place] [address]- 3801 May, [facility] [place] [facility] [address] [id number] [place] [address]- 3490 May, [facility] [place] [facility] [address] [id number], [place] [address]- 2300 Apr, [facility] [place] [facility] [address] [id number], [place] [address]- 3750 Apr, [facility] [place] [facility] [address] [id number], [place] [address]- 0646 Apr, [facility] [place] [facility] [address] [id number] [place] [address]- 6045 Apr, [facility] [place] [facility] [address] [id number][place] [address]- 2603 Apr, [facility] [place] [facility] [address] [id number][place] [address]- 8737 Apr, [facility] [place] [facility] [address] [id number][place] [address]- 3613 Apr, [facility] [place] [facility] [address] [id number], [place] [address]- 6039 Apr, [facility] [place] [facility] [address] [id number][place] [address]- 2314 Apr, [facility] [place] [facility] [address] [id number][place] [address]- 5576 Apr, [facility] [place] [facility] [address] [id number][place] [address]- 0322 Apr, [facility] [place] [facility] [address] [id number][place] [address]- 0064 Apr, [facility] [place] [facility] [address] [id number][place] [address]- 9634 Mar, [facility] [place] [facility] [address] [id number], [place] [address]- 1839 Mar, [facility] [place] [facility] [address] [id number] [place] [address]- 7198 16 Mar, 2012 [facility] [address] [id number] [place] [address]- 5186 16 Mar, 2013 [facility] [place] [facility] [address] [id number] [place] [address]- 2546 15 Mar, 2013 [facility] [address] [id number] [place] [address]- 7356 15 Mar, 2013 [facility] [place] [facility] [address] [id number] [place] [address] 2544 27 Feb, 2012 [facility] [address] [id number] [place] [address]- 9018 25 Feb, 2013 [facility] [address] [id number] [place] [address]- 3281 25 Feb, 2012 [facility] [place] [facility] [address] [id number] [place] [address]- 2548 23 Feb, 2012 [facility] [address] [id number] [place] [address]- 7062 17 Feb, 2013 [facility] [place] [facility] [address] [id number] [place] [address]- 4588 10 Feb, 2013 [facility] [address] [id number] [place] [address]- 2549 04 Feb, 2013 [facility] [place] [facility] [address] [id number] [place] [address] 254 30 Jan, 2013 [facility] [place] [facility] [address] [id number] [place] [address]- 254 20 Jan, 2013 [facility] [place] [facility] [address] [id number] [place] [address]- 8111 15 Jan, 2013 [facility] [place] [facility] [address] [id number] [place] [address]- 2541 14 Jan, 2013 [facility] [place] [facility] [address] [id number] [place] [address]- 5853 Jan, [facility] [address] [id number] [place] [address]- 7498 Jan, [facility] [place] [facility] [address] [id number] [place] [address]- 3406 Jan, [facility] [place] [facility] [address] [id number] [place] [address]- 9554 Dec, [facility] [place] [facility] [address] [id number] [place] [address]- 1678 Dec, [facility] [place] [facility] [address] [id number] [place] [address]- 9777 Dec, [facility] [place] [facility] [address] [id number] [place] [address]- 8310 Dec, [facility] [place] [facility] [address] [id number] [place] [address]- 4768 Dec, [facility] [place] [facility] [address] [id number] [place] [address]- 8792 Dec, [facility] [place] [facility] [address] [id number] [place] [address]- 5741 Nov, [facility] [place] [facility] [address] [id number] [place] [address]- 6394 Nov, [facility] [place] [facility] [address] [id number] [place] [address]- 7203 Nov, [facility] [place] [facility] [address] [id number] [place] [address]- 5779 Nov, [facility] [place] [facility] [address] [id number] [place] [address]- 4553 October, [facility] [place] [facility] [address] [id number] [place] [address]- 8416 October, [facility] [place] [facility] [address] [id number] [place] [address]- 9018 October, [facility] [place] [facility] [address] [id number], [place] [address]- 6815 October, [facility] [address] [id number] [place] [address]- 3038 30 Sep, 2012 [facility] [address] [id number] [place] [address]- 5885 Sep, [facility] [address] [id number] [place] [address]- 7317 16 Sep, 2012 [facility] [address] [id number] [place] [address]- 8764 Sep, [facility] [address] [id number] [place] [address]- 0036 Sep, [facility] [address] [id number] [place] [address]- 6891 Sep, [facility] [address] [id number] [address]- 5765 Sep, [facility] [address] [id number] [place] [address]- 1191 Sep, [facility] [address] [id number] [place] [address]- 2124 Aug, [facility] [address] [facility] [id number] [place] [address]- 1288 Aug, [facility] [address] [id number] [place] [address]- 5068 05 Aug, 2012 [facility] [address] [id number] [place] [address]- 7970 18 Jul, 2012 [facility] [place] [facility] [address] [id number] [place] [address]- 1074 08 Jul, 2012 [facility] [place] [facility] [address] [id number] [place] [address]- 7698 07 Jul, 2012 [facility] [address] [facility] [id number][place] 0371 06 Jul, 2012 [facility] [address] [id number] [place] [address]- 7436 Jul, [facility] [place] [facility] [address] [id number] [place] [address]- 8806 Jun, [facility] [place] [facility] [address] [id number] [place] [address]- 5906 Jun, [facility] [address] [id number] [place] [address] Jun, [facility] [address] [id number] [place] [address] May, [facility] [address] [id number] [place] [address] May, [facility] [address] [id number] [place] [address] May, [facility] [address] [id number] [place] [address] May, [facility] [place] [facility] [address] [id number] [place] [address] May, [facility] [address] [id number] [place] [address] May, [facility] [place] [facility] [address] [id number] [place] [address] May, [facility] [place] [facility] [address] [id number] [place] [address] Apr, [facility] [place] [facility] [address] [id number] [place] [address] Apr, [facility] [place] [facility] [address] [id number] [place] [address] Apr, [facility] [place] [facility] [address] [id number] [place] [address] Apr, [facility] [place] [facility] [address] [id number] [place] [address] Apr, [facility] [place] [facility] [address] [id number] [place] [address] Apr, [facility] [place] [facility] [address] [id number] [place] [address] Apr, [facility] [place] [facility] [address] [id number] [place] [address] Apr, [facility] [place] [facility] [address] [id number] [place] [address] Apr, [facility] [place] [facility] [address] [id number] [place] [address] Apr, [facility] [place] [facility] [address] [id number] [place] [address] Apr, [facility] [place] [facility] [address] [id number] [place] [address] Mar, [facility] [place] [facility] [address] [id number] [place] [address] Mar, [facility] [place] [facility] [address] [id number] [place] [address] Mar, [facility] [place] [facility] [address] [id number] [place] [address] Mar, [facility] [place] [facility] [address] [id number], [place] [address] Mar, [facility] [place] [facility] [address] [id number], [place] [address] Mar, [facility] [place] [facility] [address] [id number] [place] [address] Mar, [facility] [place] [facility] [address] [id number], [place] [address] Mar, [facility] [place] [facility] [address] [id number] [place] [address] 16 Mar, 2012 [facility] [place] [facility] [address] [id number] [place] [address] 16 Mar, 2012 [facility] [place] [facility] [address] [id number] [place] [address] 04 Mar, 2012 [facility] [place] [facility] [address] [id number] [place] [address] 2011 [facility] [place] [facility] [address] [id number] [place] [address] 27 Sep, 2011 [facility] [place] [facility] [address] [id number] [place] [address] 27 Feb, 2011 [facility] [place] [facility] [address] [id number] [place] [address] 26 Feb, 2011 [facility] [place] [facility] [address] [id number] [place] [address] 78[address] 24 Feb, 2011 [facility] [place] [facility] [address] [id number] [place] [address] 19 Feb, 2011 [facility] [address] [id number] [place] [address] 18 Feb, 2012 [facility] [place] [facility] [address] [id number] [place] [address] 18 Feb, 2012 [facility] [address] [id number] [place] [address] 18 Feb, 2012 [facility] [place] [facility] [address] [id number] [place] [address] Jan, [facility] [place] [facility] [address] [id number] [place] [address] Jan, [facility] [place] [facility] [address] [id number] [place] [address] Jan, [facility] [place] [facility] [address] [id number] [place] [address] 78[address] Jan, [facility] [place] [facility] [address] [id number] [place] [address] Dec, [facility] [place] [facility] [address] [id number] [place] [address] Dec, [facility] [place] [facility] [address] [id number] [place] [address] Dec, [facility] [place] [facility] [address] [id number] [place] [address] 30[address] Dec, [facility] [place] [facility] [address] [id number] [place] [address] Dec, [facility] [place] [facility] [address] [id number] [place] [address] Dec, [facility] [place] [facility] [address] [id number] [place] [address] Dec, [facility] [place] [facility] [address] [id number] [place] [address] Dec, [facility] [place] [facility] [address] [id number] [place] [address]- [address] Dec, [facility] [place] [facility] [address] [id number] [place] [address]- [address] Dec, [facility] [place] [facility] [address] [id number] [place] [address]161 Dec, [facility] [place] [facility] [address] [id number] [place] [address] Dec, [facility] [place] [facility] [address] [id number] [place] [address] Dec, [facility] [place] [facility] [address] [id number] [place] [address] Dec, [facility] [place] [facility] [address] [id number] [place] [address] Nov, [facility] [place] [facility] [address] [id number] [place] [address] Nov, [facility] [place] [facility] [address] [id number] [place] [address] Nov, [facility] [address] [id number] [place] [address] Nov, [facility] [place] [facility] [address] [id number] [place] [address] 2017 Nov, [facility] [address] [facility] [id number] [place] [address] Nov, [facility] [address] [id number] [place] [address] October, [facility] [address] [id number] [place] [address] 36[address] October, [facility] [address] [id number] [place] [address] October, [facility] [address] [id number] [address] October, [facility] [address] [id number] [place] [address] Sep, [facility] [address] [id number] [place] [address] 17 Sep, 2011 [facility] [address] [facility] [id number] [place] [address] 13 Sep, 2011 [facility] [address] [id number] [place] [address] Sep, [facility] [place] [facility] [address] [id number] [place] [address] Sep, [facility] [place] [facility] [address] [id number] [place] [address] Aug, [facility] [place] [facility] [address] [id number] [place] [address] Aug, [facility] [place] [facility] [address] [facility] [id number] [place] [address] Aug, [facility] [place] [facility] [address] [id number] [place] [address] Aug, [facility] [address] [id number] [place] [address] Aug, [facility] [address] [id number] [place] [address] Aug, [facility] [address] [id number] [place] [address] Aug, [facility] [address] [id number] [place] [address] Jul, [facility] [address] [facility] [id number] [place] [address] Jul, [facility] [address] [facility] [id number] [place] [address] Jul, [facility] [address] [facility] [id number] [place] [address] Jul, [facility] [address] [facility] [id number] [place] [address] Jun, [address] [id number] Jun, [facility] [address] [facility] [id number], [place] [address] Jun, [facility] [address] [facility] [id number], [place] [address] Jun, [facility] [address] [facility] [id number][place] [address] Jun, [facility] [address] [facility] [id number] [place] [address] Jun, [facility] [address] [facility] [id number] [place] [address] Jun, [facility] [address] [facility] [id number] [place] [address] Jun, [facility] [place] [facility] [address] [id number] [place] [address] May, [facility] [place] [facility] [address] [id number] [place] [address] May, [facility] [place] [facility] [address] [id number] [place] [address] May, [facility] [place] [facility] [address] [id number] [place] [address] May, [facility] [place] [facility] [address] [id number] [place] [address] May, [facility] [place] [facility] [address] [id number] [place] [address] May, [facility] [place] [facility] [address] [id number] [place] [address] May, [facility] [place] [facility] [address] [id number], [place] [address] Apr, [facility] [place] [facility] [address] [id number] [place] [address] Apr, [facility] [place] [facility] [address] [id number], [place] [address] Apr, [facility] [place] [facility] [address] [id number], [place] [address] Mar, [facility] [place] [facility] [address] [id number], [place] [address] Mar, [facility] [place] [facility] [address] [id number], [place] [address] 14 Mar, 2011 [facility] [place] [facility] [address] [id number], [place] [address] Mar, [facility] [place] [facility] [address] [id number], [place] [address] 10 Mar, 2011 [facility] [place] [facility] [address] [id number], [place] [address] 10 Mar, 2011 [facility] [address] [id number] [place] [address] 10 Mar, 2011 [facility] [place] [facility] [address] [id number] [place] [address] 11 Jan, 2011 [facility] [address] [facility] [id number] [place] [address] 27 May, 2010 [facility] [place] [facility] [address] [id number] [place] [address] 21 May, 2010 [facility] [address] [id number] [place] [address], [place] [address] 13 May, 2010 [facility] [place] [facility] [address] [id number] [place] [address] May, [facility] [address] [facility] [id number] [place] [address] May, [facility] [place] [facility] [address] [id number] [place] [address]- [address] 06 May, 2010 [facility] [place] [facility] [address] [id number] [address] 29 Apr, 2010 [facility] [place] [facility] [address] [facility] [id number] [place] [address] 26 Apr, 2010 [facility] [place] [facility] [address] [id number], [place] [address] 79[address] Apr, [facility] [place] [facility] [address] [id number], [place] [address] 18 Apr, 2010 [facility] [place] [facility] [address] [id number], [place] [address] 15 Apr, 2010 [facility] [place] [facility] [address] [facility] [id number], [place] [address] 12 Apr, 2010 [facility] [place] [facility] [address] [facility] [id number], [place] [address] 12 Apr, 2010 [facility] [place] [facility] [id number], [place] [address] Apr, [facility] [id number], [place] [address] Apr, [facility] [id number], [place] [address] Apr, [facility] [id number], [place] [address] Mar, [facility] [id number], [place] [address] Mar, [facility] [id number] [place] [address] Mar, [facility] [id number], [place] [address] Mar, [facility] [id number], [place] [address] Mar, [facility] [id number], [place] [address] Dec, [facility] [id number], [place] [address] Nov, IMMUNIZATIONS No Known Immunizations SOCIAL HISTORY [...] surgery and skin graft, cholecysectomy Hospitalization History [facility] 12/2016 [facility]2017 [facility]2018
--- OUTSIDE RECORDS SUMMARY | 2018-07-05 15:00 | XMS REPORT ---
Author Author NAHOMY BETH Organization [facility] Address [address] [place] [address] Care Team Providers Care Highway Patrol Pilot Name Role Phone NAHOMY BETH Unavailable PROBLEMS Type Condition ICD9-CM Code [id number] Code Onset Dates Condition Status SNOMED Code Problem Anemia, unspecified type D64.9 Active 497597705 Problem Personality disorder F60.9 Active 96583989 Problem Factitious disorder imposed on self, recurrent episode F68.10 Active 13541825 Problem Ventral hernia without obstruction or gangrene K43.9 Active 307776249 Problem Allergic state, subsequent encounter T78.40XD Active 423799429 Problem Anxiety F41.9 Active 04554550 Problem Age-related osteoporosis without current pathological fracture M81.0 Active 04227593 Problem Unspecified psychosis not due to a substance or known physiological condition F29 Active 57398339 Problem Iron deficiency anemia, unspecified iron deficiency anemia type D50.9 Active 53417433 Problem History of CVA with residual deficit I69.30 Active 539105977 Problem Seizure disorder G40.909 Active 101764125 Problem Perennial allergic rhinitis, unspecified allergic rhinitis trigger J30.89 Active 704601945 Problem Chronic kidney disease, unspecified stage N18.9 Active 786805709 Problem Back pain M54.9 Active 569246685 Problem Gastroesophageal reflux disease without esophagitis K21.9 Active 188475096 Problem Insomnia, unspecified type G47.00 Active 769675752 Problem History of colon polyps Z86.010 Active 901694827 ALLERGIES No Information ENCOUNTERS Encounter Location Date Diagnosis [facility] [id number] [address] 7[address] Mar, [facility] [id number] [address] 3325 Mar, [facility] [address] [address] 3[address] 17 Feb, 2018 [facility] [id number] [place] [address] 98254- 1965 Feb, Unspecified psychosis not due to a substance or known physiological condition F29 ; Personality disorder F60.9 and Factitious disorder imposed on self, recurrent episode F68.10 [facility] [id number] [place] [address] 55597- 3267 05 Feb, 2018 Back pain M54.9 [facility] [id number] [place] [address] 73185- 9044 Jan, Unspecified psychosis not due to a substance or known physiological condition F29 ; Personality disorder F60.9 and Factitious disorder imposed on self, recurrent episode F68.10 [facility] [id number] [place] [address] 25755- 7751 Jan, [facility] [id number] [place] [address] 77051- 6671 Jan, Back pain M54.9 and Seizure disorder G40.909 [facility] [id number] [place] [address] 23798- 6532 Jan, Back pain M54.9 [facility] [address] [place] [address] 16286- 1559 Jan, Back pain M54.9 [facility] [id number] [place] [address] 93014- 5348 Jan, [facility] [address] [place] [address] 03892- 3121 Jan, Unspecified psychosis not due to a substance or known physiological condition F29 ; Personality disorder F60.9 and Factitious disorder imposed on self, recurrent episode F68.10 [facility] [address] [address] 9749 Dec, Back pain M54.9 ; Seizure disorder G40.909 ; Ventral hernia without obstruction or gangrene K43.9 and History of CVA with residual deficit I69.30 [facility] [id number] [place] [address] 83290- 3214 Dec, Unspecified psychosis not due to a substance or known physiological condition F29 ; Personality disorder F60.9 and Factitious disorder imposed on self, recurrent episode F68.10 [facility] [id number] [place] [address] 05594- 5892 Dec, [facility] [id number] [place] [address] 44047- 1942 Dec, Back pain M54.9 [facility] [address] 67398- 6490 Dec, Factitious disorder imposed on self, recurrent episode F68.10 ; Personality disorder F60.9 ; Insomnia, unspecified type G47.00 and Anxiety F41.9 [facility] [id number] [place] [address] 51352- 6560 Nov, Unspecified psychosis not due to a substance or known physiological condition F29 ; Personality disorder F60.9 and Factitious disorder imposed on self, recurrent episode F68.10 [facility] [id number] [place] [address] 14745- 2657 Nov, Back pain M54.9 [facility] [id number] [place] [address] 69472- 4124 Nov, Unspecified psychosis not due to a substance or known physiological condition F29 ; Personality disorder F60.9 and Factitious disorder imposed on self, recurrent episode F68.10 [facility] [id number] [place] [address] 90482- 5161 October, [facility] [id number] [place] [address] 17917- 9484 October, [facility] [id number] [place] [address] 88665- 0287 October, Unspecified psychosis not due to a substance or known physiological condition F29 ; Personality disorder F60.9 and Factitious disorder imposed on self, recurrent episode F68.10 [facility] [address] [place] [address] 29949- 4660 October, Back pain M54.9 [facility] [address] [place] [address] 33558- 6483 October, Seizure disorder G40.909 ; Back pain M54.9 and Allergic state, subsequent encounter T78.40XD [facility] [id number] [place] [address] 07523- 3000 October, [facility] [id number] [place] [address] 28497- 5871 Sep, Back pain M54.9 [facility] [id number] [place] [address] 18511- 2270 Sep, Unspecified psychosis not due to a substance or known physiological condition F29 ; Personality disorder F60.9 and Factitious disorder imposed on self, recurrent episode F68.10 [facility] [address] [place] [address] 56816- 2127 Sep, [facility] [id number] [place] [address] 83711- 8557 Sep, [facility] [address] [place] [address] 80638- 1187 Sep, [facility] [id number] [place] [address] 01706- 0187 Sep, [facility] [address] [address]- 6665 Aug, [facility] [id number] [place] [address] 28466- 7478 Aug, Back pain M54.9 [facility] [address] [place] [address] 97115- 4144 15 Mar, 2018 Factitious disorder imposed on self, recurrent episode F68.10 ; Personality disorder F60.9 ; Insomnia, unspecified type G47.00 and Anxiety F41.9 [facility] [address] [address] 6724 Aug, Back pain M54.9 ; Iron deficiency anemia, unspecified iron deficiency anemia type D50.9 ; Chronic kidney disease, unspecified stage N18.9 and Breast cancer screening Z12.31 [facility] [id number] [place] [address] [id number] Jul, Back pain M54.9 [facility] [id number] [place] [address] [id number] Jul, [place] [facility] [id number] [place] [address] [id number] Jul, [facility] [id number] [place] [address] [id number] Jun, Back pain M54.9 [facility] [id number] [id number] Jun, [facility] [id number] [place] [address] [id number] Jun, Back pain M54.9 [facility] [id number] [address] 2167 Jun, Back pain M54.9 ; Seizure disorder G40.909 and Age-related osteoporosis without current pathological fracture M81.0 [facility] [id number] [id number] May, [facility] [address] [address]- 2439 May, Back pain M54.9 [facility] [address] [address] 8540 Apr, Back pain M54.9 ; Encounter for immunization Z23 ; Gastroesophageal reflux disease without esophagitis K21.9 ; Age-related osteoporosis without current pathological fracture M81.0 and Chronic pruritus L29.9 [facility] [address] [place] [address] 50191- 9785 16 Apr, 2017 History of CVA with residual deficit I69.30 [facility] [address] [place] [address] 00016- 4765 16 Apr, 2017 Factitious disorder imposed on self, recurrent episode F68.10 and Personality disorder F60.9 [facility] [id number] [place] [address] [id number] Apr, Back pain M54.9 [facility] [id number] [place] [address] 65211- 4956 Mar, Factitious disorder imposed on self, recurrent episode F68.10 [facility] [id number] [place] [address] 77780- 6048 Mar, [facility] [id number] [place] [address] [id number] Mar, [facility] [id number] [place] [address] [id number] Mar, Back pain M54.9 [facility] [id number] [place] [address] 19645- 3025 05 Mar, 2017 Back pain M54.9 ; Seizure disorder G40.909 and Age-related osteoporosis without current pathological fracture M81.0 [facility] [address] [place] [address] 53570- 8178 19 Feb, 2017 History of CVA with residual deficit I69.30 [facility] [address] [place] [address] 59803- 5393 19 Feb, 2017 Factitious disorder imposed on self, recurrent episode F68.10 and Personality disorder F60.9 [facility] [address] [address]- 9887 15 Feb, 2017 Back pain M54.9 [facility] [id number] [place] [address] 90857- 8943 Feb, [facility] [id number] [address]- 4378 Jan, [facility] [address] [place] [id number] Jan, Age- related osteoporosis without current pathological fracture M81.0 and Allergic state, subsequent encounter T78.40XD [facility] [id number] [address]- 5361 Jan, Factitious disorder imposed on self, recurrent episode F68.10 and Personality disorder F60.9 [facility] [id number] [address]- 2540 Dec, Back pain M54.9 [facility] [id number] [address]- 9766 Dec, Personality disorder F60.9 and Factitious disorder imposed on self, recurrent episode F68.10 [facility] [id number] [place] [id number] Dec, Back pain M54.9 [facility] [id number] [place] [address] [id number] Dec, [facility] [id number] [id number] Dec, [facility] [id number] [address]- 0181 Dec, [facility] [address] [address]- 4338 Nov, [facility] [id number] [address]- 2753 Nov, Back pain M54.9 ; Anemia, unspecified type D64.9 and History of colon polyps Z86.010 [facility] [id number] [address]- 5424 Nov, Back pain M54.9 [facility] [id number] [id number] October, Back pain M54.[address] [id number] October, Back pain M54.9 and Gastroesophageal reflux disease without esophagitis K21.9 [facility] [address] [id number] [id number] Sep, [facility] [address] [address]- 7458 Sep, [facility] [id number] [address] 9057 Sep, [facility] [address] [address]- 1585 Sep, [facility] [address] [address]- 1368 Sep, [facility] [address] [address]- 8209 Sep, Seizure disorder G40.909 [facility] [id number] [address]- 6356 Sep, Back pain M54.9 [facility] [id number] [address]- 4546 Sep, [facility] [address] [address]- 6006 Aug, Back pain M54.9 [facility] [id number] [address] 2546 29 Aug, 2016 Seizure disorder G40.909 [facility] [address] [id number] [place] [id number] Aug, [facility] [address] [id number] [place] [id number] 16 Aug, 2016 Back pain M54.9 [facility] [address] [id number] [place] [id number] Aug, Back pain M54.9 [facility] [id number] [id number] Aug, Back pain M54.9 [facility] [address] [place] [id number] Jul, Weakness R53.1 [facility] [address] [place] [address] 25667- 1486 Jul, Seizure disorder G40.909 [facility] [id number] [place] [address] 76929- 0416 Jul, [facility] [id number] [place] [address] 97888- 3065 Jul, Breast cancer screening Z12.39 [facility] [id number] [place] [address] 06000- 4518 Jul, [facility] [id number] [place] [address] 02730- 4310 Jul, [facility] [address] [place] [address] 57625- 1235 Jul, [facility] [address] [place] [address] 31401- 8557 Jul, Seizure disorder G40.909 ; Fatigue, unspecified type R53.83 ; Perennial allergic rhinitis, unspecified allergic rhinitis trigger J30.89 and Chronic kidney disease, unspecified stage N18.9 [facility] [address] [address]- 7116 Jul, [facility] [id number] [place] [address] 72642- 9332 Jul, Seizure disorder G40.909 [facility] [address] [address]- 6387 Jun, [facility] [address] [place] [address] 51647- 1177 Jun, [facility] [address] [place] [id number] Jun, Perennial allergic rhinitis, unspecified allergic rhinitis trigger J30.89 [facility] [id number] [place] [address] [id number] Jun, [facility] [address] [place] [address] 45804- 2591 Jun, Seizure disorder G40.909 [facility] [id number] [place] [address] [id number] Jun, [facility] [id number] [place] [address] [id number] May, [facility] [address] [place] [address] 05260- 5336 May, [facility] [address] [place] [address] 05232- 8259 May, [facility] [address] [place] [address] 21115- 0408 May, [facility] [address] [place] [address] 46945- 5196 May, History of CVA with residual deficit I69.30 [facility] [address] [place] [address] 39932- 1871 May, [facility] [address] [place] [address] 81994- 5145 May, [facility] [address] [place] [address] 19891- 8528 May, [facility] [address] [place] [address] 59825- 7861 May, Seizure disorder G40.909 [facility] [address] [address]- 2025 May, [facility] [address] [place] [address] May, Back pain M54.9 and Seizure disorder G40.909 [facility] [address] [facility] [id number] [address]- 2818 Apr, [facility] [id number] [place] [address] 40244- 0242 Apr, Back pain M54.9 [facility] [id number] [place] [address] 79560- 4208 Mar, [facility] [address] [place] [address] Mar, Insomnia, unspecified type G47.00 [facility] [address] [facility] [id number] [place] [address] 58993- 7074 Mar, [facility] [id number] [place] [address] 51173- 3794 Feb, [facility] [id number] [place] [address] 91048- 1277 Feb, [facility] [id number] [place] [address] 36039- 5369 Feb, [facility] [id number] [place] [address] 40054- 7290 Jan, [facility] [address] [place] [address] 21380- 2539 Jan, [facility] [address] [place] [address] Jan, Seizure disorder G40.909 and Back pain M54.9 [facility] [address] [facility] [id number] [place] [address] 08647- 8479 Dec, [facility] [address] [facility] [id number] [place] [address] 87612- 3255 Dec, [facility] [id number] [place] [address] 08825- 7668 Dec, [facility] [id number] [place] [address] 37981- 1895 Nov, [facility] [id number] [place] [address] 55913- 6756 Nov, [facility] [id number] [place] [address] 75398- 2676 Nov, Back pain M54.9 [facility] [id number] [place] [address] 62788- 2161 October, [facility] [id number] [place] [address] 19147- 3331 October, Back pain M54.9 [facility] [id number] [place] [address] 09780- 7522 October, Seizure disorder G40.909 and B12 deficiency E53.8 [facility] [id number] [place] [address] 36447- 9250 Sep, History of CVA with residual deficit I69.30 [facility] [id number] [place] [address] 35385- 8969 Sep, [facility] [id number] [place] [address] 94690- 9423 Sep, [facility] [id number] [place] [address] 88981- 6639 Sep, Back pain M54.9 [facility] [id number] [place] [address] 14050- 4919 Sep, Seizure disorder G40.909 [facility] [address] [place] [address] 54436- 3156 Aug, Back pain M54.9 [facility] [id number] [place] [address] 61612- 9106 Aug, Seizure disorder G40.909 [facility] [id number] [place] [address] 42333- 2426 Aug, Back pain M54.9 [facility] [address] [place] [address] 24420- 1637 14 Aug, 2015 Heart failure, unspecified I50.9 [facility] [id number] [place] [address] 56082- 1280 14 Aug, 2015 Medication monitoring encounter Z51.81 [facility] [id number] [place] [address] 77999- 7836 15 Jul, 2015 [facility] [id number] [place] [address] 36272- 7268 09 Jul, 2015 Seizure disorder G40.909 [facility] [id number] [place] [address] 25338- 2020 05 Jul, 2015 Back pain M54.9 [facility] [id number] [place] [address] 36126- 6457 Jun, [facility] [id number] [place] [address] 52424- 5213 Jun, [facility] [id number] [place] [address] 98032- 3870 Jun, Mental status change R41.82 ; History of CVA with residual deficit I69.30 ; Back pain M54.9 and Seizure disorder G40.909 [facility] [address] [place] [address] 22291- 6038 Jun, [facility] [id number] [place] [address] 09194- 7895 May, [facility] [id number] [place] [address] 76744- 9837 Apr, [facility] [id number] [place] [address] 07573- 8206 Apr, Medication monitoring encounter Z51.81 [facility] [address] [place] [address] 84143- 9256 Mar, Vomiting R11.10 [facility] [place] [facility] [address] [id number] [place] [address]- 7437 Mar, [facility] [address] [id number] [place] [address]- 0635 18 Feb, 2015 [facility] [place] [facility] [address] [id number] [place] [address] Feb, UTI (urinary tract infection) 599.0 [facility] [address] [id number] [place] [address] Jan, [facility] [address] [id number] [place] [address] Jan, [facility] [address] [id number] [place] [address] Jan, [facility] [address] [id number] [place] [address] Dec, [facility] [address] [id number] [place] [address] Dec, [facility] [place] [facility] [address] [id number] [place] [address] Dec, [facility] [address] [id number] [place] [address] Dec, [facility] [address] [id number] [place] [address] Nov, UNKNOWN Nov, [facility] [place] [facility] [address] [id number] [place] [address] October, [facility] [place] [facility] [address] [id number] [place] [address] 14 Sep, 2014 [facility] [place] [facility] [address] [id number] [place] [address] Sep, [facility] [place] [facility] [address] [id number] [place] [address] Aug, [facility] [place] [facility] [address] [id number] [place] [address] Aug, [facility] [place] [facility] [address] [id number] [place] [address] Jul, [facility] [facility] [address] [id number] [place] [address] 2546 Jul, 2014 [facility] [place] [facility] [address] [id number] [place] [address] Jul, 2014 [facility] [place] [facility] [address] [id number] [place] [address] 6458 Jul, [facility] [place] [facility] [address] [id number] [place] [address] 2056 Jul, [facility] [place] [facility] [address] [id number] [place] [address] 3611 Jun, [facility] [place] [facility] [address] [id number] [place] [address] 6043 Jun, [facility] [place] [facility] [address] [id number] [place] [address] 1243 Jun, [facility] [place] [facility] [address] [id number] [place] [address] 8174 Jun, [facility] [place] [facility] [address] [id number] [place] [address] 3905 Jun, [facility] [place] [facility] [address] [id number] [place] [address]- 0405 Jun, [facility] [place] [facility] [address] [id number] [place] [address]- 1586 Jun, [facility] [place] [facility] [address] [id number] [place] [address]- 3025 Jun, [facility] [place] [facility] [address] [id number] [place] [address] 2546 Jun, [facility] [place] [address] [id number] [place] [address]- 8889 Jun, [facility] [place] [address] [id number] [place] [address]- 7990 Jun, [facility] [place] [address] [id number] [place] [address]- 5419 Jun, [facility] [place] [address] [id number] [place] [address]- 4903 Jun, [facility] [place] [address] [id number] [place] [address]- 3421 Jun, [facility] [place] [facility] [address] [id number] [place] [address]- 8019 Jun, [facility] [place] [address] [id number] [place] [address]- 0769 Jun, [facility] [place] [address] [id number] [place] [address]- 4652 Jun, [facility] [place] [address] [id number] [place] [address]- 9006 Jun, [facility] [address] [id number] [place] [address]- 2158 May, [facility] [address] [id number] [place] [address]- 7696 30 May, 2014 [facility] [address] [id number] [place] [address]- 4389 30 May, 2014 [facility] [address] [id number] [place] [address]- 0735 30 May, 2014 [facility] [address] [id number] [place] [address]- 0812 19 May, 2014 [facility] [place] [address] [id number] [place] [address]- 6684 16 May, 2014 [facility] [address] [id number] [place] [address]- 0072 May, [facility] [address] [id number] [place] [address]- 1656 May, [facility] [address] [id number] [place] [address]- 4209 May, [facility] [address] [place] [id number] May, [facility] [address] [id number] [place] [address] 3903 May, [facility] [address] [id number] [place] [address]- 4721 May, [facility] [address] [id number] [place] [address]- 6936 May, [facility] [address] [id number] [place] [address]- 4005 Apr, [facility] [address] [id number] [place] [address]- 3377 Apr, [facility] [address] [id number] [place] [address]- 1590 Apr, [facility] [address] [id number] [place] [address]- 3433 Apr, [facility] [address] [id number] [place] [address]- 8313 Apr, [facility] [address] [id number] [place] [address]- 2415 Apr, [facility] [address] [id number] [place] [address]- 7827 Mar, [facility] [address] [id number] [place] [address]- 5162 Mar, [facility] [address] [id number] [place] [address]- 5906 Mar, [facility] [address] [id number] [place] [address]- 8341 Mar, [facility] [address] [id number] [place] [address]- 2569 Mar, [facility] [address] [id number] [place] [address]- 1276 Mar, [facility] [address] [id number] [place] [address]- 5839 24 Feb, 2014 [facility] [address] [id number] [place] [address]- 6772 24 Feb, 2014 [facility] [address] [id number] [place] [address]- 1835 Feb, [facility] [address] [id number] [place] [address]- 3074 Feb, [facility] [address] [id number] [place] [address]- 6797 Feb, [facility] [address] [id number] [place] [address]- 7884 Feb, [facility] [address] [id number] [place] [address]- 7833 Feb, [facility] [address] [id number] [place] [address]- 3150 Feb, [facility] [address] [id number] [place] [address]- 0165 Feb, [facility] [address] [id number] [place] [address]- 2545 Feb, [facility] [address] [id number] Feb, [facility] [address] [id number] [place] [address] 6502 Feb, [facility] [address] [id number] [place] [address]- 5681 Jan, [facility] [address] [id number] [place] [address]- 1147 Jan, [facility] [address] [id number] [place] [address]- 9173 Dec, 2013 [facility] [address] [id number] [place] [address]- 8191 Dec, [facility] [address] [id number] [place] [address]- 3377 Dec, [facility] [address] [id number] [place] [address]- 1211 Dec, [facility] [address] [id number] [place] [address]- 4578 Dec, [facility] [address] [id number] [place] [address]- 8935 Dec, [facility] [address] [id number] [place] [address]- 4891 Dec, [facility] [address] [id number] [place] [address]- 9802 Dec, [facility] [address] [id number] [place] [address]- 0456 Dec, [facility] [address] [id number] [place] [address]- 5306 Dec, [facility] [address] [id number] [place] [address]- 5159 Nov, [facility] [address] [id number] [place] [address]- 7795 Nov, [facility] [address] [id number] [place] [address]- 9916 Nov, [facility] [address] [id number] [place] [address]- 7596 Nov, [facility] [address] [id number] [place] [address]- 0104 Nov, [facility] [address] [id number] [place] [address]- 0698 Nov, [facility] [address] [id number] [place] [address]- 3158 Nov, [facility] [address] [id number] [place] [address]- 1284 Nov, [facility] [address] [id number] [place] [address]- 4399 Nov, [facility] [address] [id number] [place] [address]- 5499 Nov, [facility] [address] [id number] [place] [address]- 1868 Nov, [facility] [address] [id number] [place] [address]- 1165 Nov, [facility] [address] [id number] [place] [address]- 7556 Nov, [facility] [address] [id number] [place] [address]- 2434 Nov, [facility] [address] [id number] [place] [address]- 0039 October, [facility] [address] [id number] [place] [address]- 4183 October, [facility] [address] [id number] [place] [address]- 9851 October, [facility] [address] [id number] [place] [address]- 9804 October, [facility] [address] [id number] [place] [address]- 3709 October, [facility] [address] [id number] [place] [address]- 9191 October, [facility] [address] [id number] [place] [address]- 5307 October, [facility] [address] [id number] [place] [address]- 7511 October, [facility] [address] [id number] [place] [address]- 1943 October, [facility] [address] [id number] [place] [address]- 0659 October, [facility] [address] [id number] [place] [address]- 1330 Sep, [facility] [address] [id number] [place] [address]- 2066 Sep, [facility] [address] [id number] [place] [address]- 8252 Sep, [facility] [address] [id number] [place] [address]- 6408 Sep, [facility] [address] [id number] [place] [address]- 7433 Sep, [facility] [address] [id number] [place] [address]- 1182 Sep, [facility] [address] [id number] [place] [address]- 7058 Sep, [facility] [address] [id number] [place] [address]- 8131 Sep, [facility] [address] [id number] [place] [address]- 9818 Sep, [facility] [address] [id number] [place] [address]- 6524 Sep, [facility] [address] [id number] [place] [address]- 3757 Aug, [facility] [address] [id number] [place] [address]- 3741 Aug, [facility] [address] [id number] [place] [address]- 4160 Aug, [facility] [address] [id number] [place] [address]- 4519 10 Aug, 2013 [facility] [address] [id number] [place] [address]- 7834 Aug, [facility] [address] [id number] [place] [address]- 9592 Aug, [facility] [address] [id number] [place] [address]- 8930 Aug, [facility] [address] [id number] [place] [address]- 7872 Aug, [facility] [address] [id number] [place] [address]- 7816 Aug, [facility] [address] [id number] [place] [address]- 9374 Jul, [facility] [address] [id number] [place] [address]- 9104 Jul, [facility] [address] [id number] [place] [address]- 8749 Jul, [facility] [address] [facility] [id number] [place] [address]- 5855 Jul, [facility] [address] [id number] [place] [address]- 9528 Jul, [facility] [address] [id number] [place] [address]- 2423 Jul, [facility] [address] [id number] [place] [address]- 7640 Jul, [facility] [address] [id number] [place] [address]- 9391 Jul, [facility] [address] [facility] [id number] [place] [address]- 7740 Jul, [facility] [address] [id number] [place] [address]- 2853 17 Jul, 2013 [facility] [address] [id number] [place] [address]- 2394 Jul, [facility] [address] [id number] [place] [address] Jul, [facility] [address] [id number] [place] [address]- 3186 Jul, [facility] [address] [id number] [place] [address]- 0949 Jul, [facility] [address] [id number] [place] [address]- 3889 Jul, [facility] [address] [id number] [place] [address]- 4994 Jul, [facility] [address] [id number] [place] [address]- 1519 Jun, [facility] [place] [facility] [address] [id number] [place] [address]- 9833 Jun, [facility] [place] [facility] [address] [id number] [place] [address]- 4464 Jun, [facility] [place] [facility] [address] [id number] [place] [address]- 9442 Jun, [facility] [place] [facility] [address] [id number] [place] [address]- 0478 Jun, [facility] [place] [facility] [address] [id number] [place] [address]- 9886 Jun, [facility] [place] [facility] [address] [id number] [place] [address]- 0816 May, [facility] [place] [facility] [address] [id number] [place] [address]- 5917 May, [facility] [place] [facility] [address] [id number] [address]- 6026 May, [facility] [place] [facility] [address] [id number] [place] [address]- 0274 May, [facility] [place] [facility] [address] [id number] [place] [address]- 3115 Apr, [facility] [address] [id number] [place] [address]- 3352 Apr, [facility] [address] [id number] [place] [address]- 4256 Apr, [facility] [place] [facility] [address] [id number] [place] [address]- 4518 Apr, [facility] [place] [facility] [address] [id number] [place] [address]- 6519 Apr, [facility] [place] [facility] [address] [id number] [place] [address]- 2713 Apr, [facility] [place] [facility] [address] [id number] [place] [address]- 9554 Apr, [facility] [place] [facility] [address] [id number] [place] [address]- 5185 Apr, [facility] [place] [facility] [address] [id number] [place] [address]- 6462 Apr, [facility] [place] [facility] [address] [id number] [place] [address]- 1594 Apr, [facility] [place] [facility] [address] [id number] [place] [address]- 3767 Apr, [facility] [place] [facility] [address] [id number] [place] [address]- 9532 Apr, [facility] [place] [facility] [address] [id number] [place] [address]- 2338 Mar, [facility] [place] [facility] [address] [id number] [place] [address]- 0670 Mar, [facility] [place] [facility] [address] [id number] [place] [address]- 8282 16 Mar, 2012 [facility] [address] [id number] [place] [address]- 2662 16 Mar, 2013 [facility] [place] [facility] [address] [id number] [place] [address]- 2546 15 Mar, 2013 [facility] [address] [id number] [place] [address]- 0282 15 Mar, 2013 [facility] [place] [facility] [address] [id number] [place] [address] 2540 27 Feb, 2012 [facility] [address] [id number] [place] [address]- 1202 25 Feb, 2013 [facility] [address] [id number] [place] [address]- 3840 25 Feb, 2012 [facility] [place] [facility] [address] [id number] [place] [address]- 2543 23 Feb, 2012 [facility] [address] [id number] [place] [address]- 2708 17 Feb, 2013 [facility] [place] [facility] [address] [id number] [place] [address]- 6882 10 Feb, 2013 [facility] [address] [id number] [place] [address]- 2547 04 Feb, 2013 [facility] [place] [facility] [address] [id number] [place] [address] 2544 30 Jan, 2013 [facility] [place] [facility] [address] [id number] [place] [address]- 2543 20 Jan, 2013 [facility] [place] [facility] [address] [id number] [place] [address]- 1773 15 Jan, 2013 [facility] [place] [facility] [address] [id number] [place] [address]- 2548 14 Jan, 2013 [facility] [place] [facility] [address] [id number] [place] [address]- 5238 Jan, [facility] [address] [id number] [place] [address]- 5479 Jan, [facility] [place] [facility] [address] [id number] [place] [address]- 8146 Jan, [facility] [place] [facility] [address] [id number] [place] [address]- 4941 Dec, [facility] [place] [facility] [address] [id number] [place] [address]- 7031 Dec, [facility] [place] [facility] [address] [id number] [place] [address]- 9383 Dec, [facility] [place] [facility] [address] [id number] [place] [address]- 3404 Dec, [facility] [place] [facility] [address] [id number] [place] [address]- 5743 Dec, [facility] [place] [facility] [address] [id number] [place] [address]- 8829 Dec, [facility] [place] [facility] [address] [id number] [place] [address]- 8541 Nov, [facility] [place] [facility] [address] [id number] [place] [address]- 4437 Nov, [facility] [place] [facility] [address] [id number] [place] [address]- 7240 Nov, [facility] [place] [facility] [address] [id number] [place] [address]- 2998 Nov, [facility] [place] [facility] [address] [id number] [place] [address]- 8891 October, [facility] [place] [facility] [address] [id number] [place] [address]- 0486 October, [facility] [place] [facility] [address] [id number] [place] [address]- 8315 October, [facility] [place] [facility] [address] [id number] [place] [address]- 6806 October, [facility] [address] [id number] [place] [address]- 2044 30 Sep, 2012 [facility] [address] [id number] [place] [address]- 5768 Sep, [facility] [address] [id number] [place] [address]- 3779 16 Sep, 2012 [facility] [address] [id number] [place] [address]- 2153 Sep, [facility] [address] [id number] [place] [address]- 9841 Sep, [facility] [address] [id number] [place] [address]- 4151 Sep, [facility] [address] [id number] [place] [address] Sep, [facility] [address] [id number] [place] [address] Sep, [facility] [address] [id number] [place] [address] Aug, [facility] [address] [facility] [id number] [place] [address] Aug, [facility] [address] [id number] [place] [address] 05 Aug, 2012 [facility] [address] [id number] [place] [address] 18 Jul, 2012 [facility] [place] [facility] [address] [id number] [place] [address] 08 Jul, 2012 [facility] [place] [facility] [address] [id number] [place] [address] 07 Jul, 2012 [facility] [address] [facility] [id number] [place] 06 Jul, 2012 [facility] [address] [id number] [place] [address] Jul, [facility] [place] [facility] [address] [id number] [place] [address] Jun, [facility] [place] [facility] [address] [id number] [place] [address] Jun, [facility] [address] [id number] [place] [address] Jun, [facility] [address] [id number] [place] [address] May, [facility] [address] [id number] [place] [address] May, [facility] [address] [id number] [place] [address] May, [facility] [address] [id number] [place] [address] May, [facility] [place] [facility] [address] [id number] [place] [address] May, [facility] [address] [id number] [place] [address] May, [facility] [place] [facility] [address] [id number] [place] [address] May, [facility] [place] [facility] [address] [id number] [place] [address] Apr, [facility] [place] [facility] [address] [id number] [place] [address] Apr, [facility] [place] [facility] [address] [id number] [place] [address] Apr, [facility] [place] [facility] [address] [id number] [place] [address] Apr, [facility] [place] [facility] [address] [id number] [place] [address] Apr, [facility] [place] [facility] [address] [id number] [place] [address] Apr, [facility] [place] [facility] [address] [id number] [place] [address]163 Apr, [facility] [place] [facility] [address] [id number] [place] [address] Apr, [facility] [place] [facility] [address] [id number] [place] [address]774 Apr, [facility] [place] [facility] [address] [id number] [place] [address] Apr, [facility] [place] [facility] [address] [id number] [place] [address]- [address]95 Apr, [facility] [place] [facility] [address] [id number] [place] [address] 39[address] Mar, [facility] [place] [facility] [address] [id number] [place] [address] 2414 Mar, [facility] [place] [facility] [address] [id number] [place] [address] 6736 Mar, [facility] [place] [facility] [address] [id number] [place] [address]461 Mar, [facility] [place] [facility] [address] [id number] [place] [address] Mar, [facility] [place] [facility] [address] [id number] [place] [address] Mar, [facility] [place] [facility] [address] [id number] [place] [address]43 Mar, [facility] [place] [facility] [address] [id number] [place] [address] Mar, [facility] [place] [facility] [address] [id number] [place] [address]63 16 Mar, 2012 [facility] [place] [facility] [address] [id number] [place] [address] 16 Mar, 2012 [facility] [place] [facility] [address] [id number] [place] [address]- [address]41 04 Mar, 2012 [facility] [place] [facility] [address] [id number] [place] [address] 2011 [facility] [place] [facility] [address] [id number] [place] [address] 27 Sep, 2011 [facility] [place] [facility] [address] [id number] [place] [address]31 27 Feb, 2011 [facility] [place] [facility] [address] [id number] [place] [address]- [address]28 26 Feb, 2011 [facility] [place] [facility] [address] [id number] [place] [address]- [address] 24 Feb, 2011 [facility] [place] [facility] [address] [id number] [place] [address]- [address] 19 Feb, 2011 [facility] [address] [id number] [place] [address] 2861 18 Feb, 2012 [facility] [place] [facility] [address] [id number] [place] [address] 9165 18 Feb, 2012 [facility] [address] [id number] [place] [address]- 4835 18 Feb, 2012 [facility] [place] [facility] [address] [id number] [place] [address]- [address]43 Jan, [facility] [place] [facility] [address] [id number] [place] [address]49 Jan, [facility] [place] [facility] [address] [id number] [place] [address] Jan, [facility] [place] [facility] [address] [id number] [place] [address]- 5073 Jan, [facility] [place] [facility] [address] [id number] [place] [address]- [address] Dec, [facility] [place] [facility] [address] [id number] [place] [address]- 7799 Dec, [facility] [place] [facility] [address] [id number] [place] [address]- [address]285 Dec, [facility] [place] [facility] [address] [id number] [place] [address]- [address]798 Dec, [facility] [place] [facility] [address] [id number] [place] [address]- 5972 Dec, [facility] [place] [facility] [address] [id number] [place] [address]- [address]227 Dec, [facility] [place] [facility] [address] [id number] [place] [address]- [address]459 Dec, [facility] [place] [facility] [address] [id number] [place] [address]- 3064 Dec, [facility] [place] [facility] [address] [id number] [place] [address]- 1476 Dec, [facility] [place] [facility] [address] [id number] [place] [address]- 2538 Dec, [facility] [place] [facility] [address] [id number] [place] [address]- [address]396 Dec, [facility] [place] [facility] [address] [id number] [place] [address]- 2971 Dec, [facility] [place] [facility] [address] [id number] [place] [address]- 3749 Dec, [facility] [place] [facility] [address] [id number] [place] [address]- 4207 Dec, [facility] [place] [facility] [address] [id number] [place] [address]- [address] Nov, [facility] [place] [facility] [address] [address] [id number] [place] [address] Nov, [facility] [place] [facility] [address] [id number] [place] [address] Nov, [facility] [address] [id number] [place] [address] Nov, [facility] [place] [facility] [address] [id number] [place] [address] Nov, [facility] [address] [facility] [id number] [place] [address] Nov, [facility] [address] [id number] [place] [address] October, [facility] [address] [id number] [place] [address] October, [facility] [address] [id number] [place] [address] October, [facility] [address] [id number] [place] [address] October, [facility] [address] [id number] [place] [address] Sep, [facility] [address] [id number] [place] [address] 17 Sep, 2011 [facility] [address] [facility] [id number] [place] [address] 13 Sep, 2011 [facility] [address] [id number] [place] [address] Sep, [facility] [place] [facility] [address] [id number] [place] [address] Sep, [facility] [place] [facility] [address] [id number] [place] [address] Aug, [facility] [place] [facility] [address] [id number] [place] [address] Aug, [facility] [place] [facility] [address] [facility] [id number] [place] [address] Aug, [facility] [place] [facility] [address] [id number] [place] [address] Aug, [facility] [address] [id number] [place] [address] Aug, [facility] [address] [id number] [place] [address] Aug, [facility] [address] [id number] [place] [address] 1386 Aug, [facility] [address] [id number] [place] [address] Jul, [facility] [address] [facility] [id number] [place] [address] Jul, [facility] [address] [facility] [id number] [place] [address]- [address] Jul, [facility] [address] [facility] [id number] [place] [address] 76[address] Jul, [facility] [address] [facility] [id number] [place] [address] Jun, [address] [id number] Jun, [facility] [address] [facility] [id number] [place] [address] Jun, [facility] [address] [facility] [id number] [place] [address] Jun, [facility] [address] [facility] [id number] [place] [address] Jun, [facility] [address] [facility] [id number] [place] [address]476 Jun, [facility] [address] [facility] [id number] [place] [address] 6396 Jun, [facility] [address] [facility] [id number] [place] [address] 39[address] Jun, [facility] [place] [facility] [address] [id number] [place] [address] May, [facility] [place] [facility] [address] [id number] [place] [address] 9058 May, [facility] [place] [facility] [address] [id number] [place] [address] 6597 May, [facility] [place] [facility] [address] [id number] [place] [address] May, [facility] [place] [facility] [address] [id number] [place] [address] 93[address] May, [facility] [place] [facility] [address] [id number] [place] [address] 3690 May, [facility] [place] [facility] [address] [id number] [place] [address] 4[address] May, [facility] [place] [facility] [address] [id number] [address] Apr, [facility] [place] [facility] [address] [id number] [place] [address] 9293 Apr, [facility] [place] [facility] [address] [id number] [place] [address]- 6[address] Apr, [facility] [place] [facility] [address] [id number] [place] [address]- [address]66 Mar, [facility] [place] [facility] [address] [id number] [place] [address]- 8735 Mar, [facility] [place] [facility] [address] [id number] [place] [address]- 7785 14 Mar, 2011 [facility] [place] [facility] [address] [id number] [place] [address]- [address] Mar, [facility] [place] [facility] [address] [id number] [place] [address]- 6394 10 Mar, 2011 [facility] [place] [facility] [address] [id number] [place] [address]- 7686 10 Mar, 2011 [facility] [address] [id number] [place] [address]- [address]227 10 Mar, 2011 [facility] [place] [facility] [address] [id number] [place] [address]- 4307 11 Jan, 2011 [facility] [address] [facility] [id number] [place] [address]- [address]226 27 May, 2010 [facility] [place] [facility] [address] [id number] [place] [address]- 6642 21 May, 2010 [facility] [address] [id number] [place] [address], [place] [address] 13 May, 2010 [facility] [place] [facility] [address] [id number] [place] [address]- 1546 May, [facility] [address] [facility] [id number] [place] [address]336 May, [facility] [place] [facility] [address] [id number] [place] [address]- 8228 06 May, 2010 [facility] [place] [facility] [address] [id number] [address] 29 Apr, 2010 [facility] [place] [facility] [address] [facility] [id number] [place] [address]- 1610 26 Apr, 2010 [facility] [place] [facility] [address] [id number] [place] [address]- 9[address] Apr, [facility] [place] [facility] [address] [id number] [place] [address]- 2542 18 Apr, 2010 [facility] [place] [facility] [address] [id number] [place] [address]- 1352 15 Apr, 2010 [facility] [place] [facility] [address] [facility] [id number] [place] [address]- 4970 12 Apr, 2010 [facility] [place] [facility] [address] [facility] [id number] [place] [address]- 9476 12 Apr, 2010 [facility] [place] [facility] [id number] [address] Apr, [facility] [id number] [address]- [address] Apr, [facility] [id number] [address]- 8636 Apr, [facility] [id number] [address]- 5930 Mar, [facility] [id number] [address]- 2991 Mar, [facility] [id number] [place] [address]- 3942 Mar, [facility] [id number] [address]- 9164 Mar, [facility] [id number] [address]- 3206 Mar, [facility] [id number] [address]- [address] Dec, [facility] [id number] [address]- 6164 Nov, IMMUNIZATIONS No Known Immunizations SOCIAL HISTORY Never Assessed REASON FOR VISIT Pt sent to ER PLAN OF CARE VITAL SIGNS MEDICATIONS Unknown [...] and skin graft, cholecysectomy Hospitalization History [facility] 12[facility]2016 [facility] 08[facility]2017 Hospitalization History [facility] 01/2018
--- OUTSIDE RECORDS SUMMARY | 2018-07-05 15:01 | XMS REPORT ---
Author Author OMKAR SERRANO Organization [facility] Address [address] [place] [address] Care Team Providers Care Hospitalist Name Role Phone OMKAR SERRANO Unavailable PROBLEMS Type Condition ICD9-CM Code WOL23-WX Code Onset Dates Condition Status SNOMED Code Problem Anemia, unspecified type D64.9 Active 312899116 Problem Personality disorder F60.9 Active 43563918 Problem Factitious disorder imposed on self, recurrent episode F68.10 Active 73802378 Problem Ventral hernia without obstruction or gangrene K43.9 Active 081631808 Problem Allergic state, subsequent encounter T78.40XD Active 352374302 Problem Anxiety F41.9 Active 36901224 Problem Age-related osteoporosis without current pathological fracture M81.0 Active 01846077 Problem Unspecified psychosis not due to a substance or known physiological condition F29 Active 36882465 Problem Iron deficiency anemia, unspecified iron deficiency anemia type D50.9 Active 69196173 Problem History of CVA with residual deficit I69.30 Active 035461167 Problem Seizure disorder G40.909 Active 146585134 Problem Perennial allergic rhinitis, unspecified allergic rhinitis trigger J30.89 Active 247627926 Problem Chronic kidney disease, unspecified stage N18.9 Active 126887520 Problem Back pain M54.9 Active 338541488 Problem Gastroesophageal reflux disease without esophagitis K21.9 Active 031907554 Problem Insomnia, unspecified type G47.00 Active 508104724 Problem History of colon polyps Z86.010 Active 469263846 ALLERGIES No Information ENCOUNTERS Encounter Location Date Diagnosis [facility] [address] [facility] [id number] [address] Mar, [facility] [address] [facility] [id number], [place] [address] Feb, Unspecified psychosis not due to a substance or known physiological condition F29 ; Personality disorder F60.9 and Factitious disorder imposed on self, recurrent episode F68.10 [facility] [id number] [place] [address] 86003- 5754 05 Feb, 2018 Back pain M54.9 [facility] [id number] [place] [address] 35865- 4315 Jan, Unspecified psychosis not due to a substance or known physiological condition F29 ; Personality disorder F60.9 and Factitious disorder imposed on self, recurrent episode F68.10 [facility] [id number] [place] [address] 24208- 8570 Jan, [facility] [id number] [place] [address] 70613- 0257 Jan, Back pain M54.9 and Seizure disorder G40.909 [facility] [id number] [place] [address] 46334- 7340 Jan, Back pain M54.9 [facility] [id number] [place] [address] 51972- 0759 Jan, Back pain M54.9 [facility] [id number] [place] [address] 55981- 2159 Jan, [facility] [id number] [place] [address] 47159- 4693 Jan, Unspecified psychosis not due to a substance or known physiological condition F29 ; Personality disorder F60.9 and Factitious disorder imposed on self, recurrent episode F68.10 [facility] [id number] [place] [address] 90690- 0282 Dec, Back pain M54.9 ; Seizure disorder G40.909 ; Ventral hernia without obstruction or gangrene K43.9 and History of CVA with residual deficit I69.30 [facility] [address] [id number] [address] 5749 Dec, Unspecified psychosis not due to a substance or known physiological condition F29 ; Personality disorder F60.9 and Factitious disorder imposed on self, recurrent episode F68.10 [facility] [address] [address] 8[address] Dec, [facility] [id number] [place] [address] 82213- 6729 Dec, Back pain M54.9 [facility] [id number] [place] [address] 83582- 7791 Dec, Factitious disorder imposed on self, recurrent episode F68.10 ; Personality disorder F60.9 ; Insomnia, unspecified type G47.00 and Anxiety F41.9 [place] [id number] [place] [address] 39210- 9610 Nov, Unspecified psychosis not due to a substance or known physiological condition F29 ; Personality disorder F60.9 and Factitious disorder imposed on self, recurrent episode F68.10 [facility] [id number] [place] [address] 12279- 3593 Nov, Back pain M54.9 [facility] [id number] [place] [address] 19931- 4485 Nov, Unspecified psychosis not due to a substance or known physiological condition F29 ; Personality disorder F60.9 and Factitious disorder imposed on self, recurrent episode F68.10 [facility] [address] [address] 3773 October, [facility] [address] [address] 2260 October, [facility] [id number] [place] [address] 77171- 3778 October, Unspecified psychosis not due to a substance or known physiological condition F29 ; Personality disorder F60.9 and Factitious disorder imposed on self, recurrent episode F68.10 [facility] [address] [place] [address] 03746- 2239 October, Back pain M54.9 [facility] [id number] [place] [address] 70343- 2668 October, Seizure disorder G40.909 ; Back pain M54.9 and Allergic state, subsequent encounter T78.40XD [facility] [id number] [place] [address] 48672- 4990 October, [facility] [id number] [place] [address] 06715- 4902 Sep, Back pain M54.9 [facility] [id number] [place] [address] 71121- 2087 Sep, Unspecified psychosis not due to a substance or known physiological condition F29 ; Personality disorder F60.9 and Factitious disorder imposed on self, recurrent episode F68.10 [facility] [id number] [place] [address] 11974- 7231 Sep, [facility] [id number] [place] [address] 34405- 9847 Sep, [facility] [id number] [place] [address] 37850- 5537 Sep, [facility] [id number] [place] [address] 65967- 5235 Sep, [facility] [id number] [place] [address] 95311- 2716 Aug, [facility] [id number] [place] [address] 67037- 3525 Aug, Back pain M54.9 [facility] [id number] [place] [address] 11240- 1881 Aug, Factitious disorder imposed on self, recurrent episode F68.10 ; Personality disorder F60.9 ; Insomnia, unspecified type G47.00 and Anxiety F41.9 [facility] [id number] [place] [address] 98985- 2618 Aug, Back pain M54.9 ; Iron deficiency anemia, unspecified iron deficiency anemia type D50.9 ; Chronic kidney disease, unspecified stage N18.9 and Breast cancer screening Z12.31 [facility] [id number] [address] Jul, Back pain M54.9 [facility] [id number] [id number] Jul, [facility] [address] [id number] [id number] Jul, [facility] [address] [id number] [id number] Jun, Back pain M54.9 [facility] [id number] [address] Jun, [facility] [id number] [place] [address] [id number] Jun, Back pain M54.9 [place] [id number] [address] Jun, Back pain M54.9 ; Seizure disorder G40.909 and Age-related osteoporosis without current pathological fracture M81.0 [facility] [id number] [id number] May, [facility] [address], [place] [address] 0919 May, Back pain M54.9 [place] [address] [id number] [address]- 6546 Apr, Back pain M54.9 ; Encounter for immunization Z23 ; Gastroesophageal reflux disease without esophagitis K21.9 ; Age-related osteoporosis without current pathological fracture M81.0 and Chronic pruritus L29.9 [facility] [id number] [address] 0947 16 Apr, 2017 History of CVA with residual deficit I69.30 [place] [address] [address]- 5670 16 Apr, 2017 Factitious disorder imposed on self, recurrent episode F68.10 and Personality disorder F60.9 [facility] [id number] [place] [address] [id number] 08 Apr, 2017 Back pain M54.9 [facility] [address], [place] [address]- 9432 Mar, Factitious disorder imposed on self, recurrent episode F68.10 [facility] [id number] [place] [address] 44650- 9681 Mar, [facility] [id number] [place] [address] [id number] Mar, [facility] [id number] [place] [address] [id number] Mar, Back pain M54.9 [facility] [id number] [place] [address] 07626- 7720 Mar, Back pain M54.9 ; Seizure disorder G40.909 and Age-related osteoporosis without current pathological fracture M81.0 [facility] [id number] [place] [address] 38658- 9340 Feb, History of CVA with residual deficit I69.30 [facility] [address], [place] [address]- 7820 Feb, Factitious disorder imposed on self, recurrent episode F68.10 and Personality disorder F60.9 [facility] [id number] [place] [address] 72410- 8898 15 Feb, 2017 Back pain M54.9 [facility] [id number] [place] [address] 54107- 4863 Feb, [facility] [id number] [place] [address] 46989- 8609 Jan, [facility] and [address] [id number] Jan, Age- related osteoporosis without current pathological fracture M81.0 and Allergic state, subsequent encounter T78.40XD [facility] [id number] [place] [address] 91226- 2880 Jan, Factitious disorder imposed on self, recurrent episode F68.10 and Personality disorder F60.9 [facility] [id number] [place] [address] 31760- 1172 Dec, Back pain M54.9 [facility] [id number] [place] [address] 71427- 5333 Dec, Personality disorder F60.9 and Factitious disorder imposed on self, recurrent episode F68.10 [facility] [id number] [place] [address] [id number] Dec, Back pain M54.9 [facility] [id number] [place] [address] [id number] Dec, [facility] [id number] [place] [address] [id number] Dec, [facility] [id number] [place] [address] 38619- 8956 Dec, [facility] [id number] [place] [address] 91102- 4703 Nov, [facility] [id number] [place] [address] 68720- 0414 Nov, Back pain M54.9 ; Anemia, unspecified type D64.9 and History of colon polyps Z86.010 [facility] [address], [place] [address]- 9009 Nov, Back pain M54.9 [facility] [id number] [place] [address] [id number] October, Back pain M54.9 [facility] [address] [place] [id number] October, Back pain M54.9 and Gastroesophageal reflux disease without esophagitis K21.9 [facility] [address] [id number] [id number] Sep, [facility] [address] [facility] [id number], [place] [address]- 0418 Sep, [facility] [address] [facility] [id number], [place] [address]- 7851 Sep, [facility] [address] [facility] [id number] [place] [address] 28636- 0998 Sep, [facility] [address] [facility] [id number] [place] [address] 14265- 7205 Sep, [facility] [address] [facility] [id number] [place] [address] 13807- 6794 Sep, Seizure disorder G40.909 [facility] [id number] [place] [address] 26006- 7264 Sep, Back pain M54.9 [facility] [address] [facility] [id number], [place] [address] Sep, [facility] [address] [facility] [id number] [place] [address] 19905- 2687 Aug, Back pain M54.9 [facility] [id number], [place] [address]- 6947 29 Aug, 2016 Seizure disorder G40.909 [facility] [id number] [id number] Aug, [facility] [address] [id number] [id number] 16 Aug, 2016 Back pain M54.9 [facility] [id number] [place] [address] [id number] 14 Aug, 2016 Back pain M54.9 [facility] [address] [id number] [id number] 06 Aug, 2016 Back pain M54.9 [facility] [address] [place] [id number] Jul, Weakness R53.1 [place] [id number] [place] [address] 68820- 9596 Jul, Seizure disorder G40.909 [facility] [id number] [place] [address] 75329- 8236 Jul, [facility] [id number] [place] [address] 50323- 8216 Jul, Breast cancer screening Z12.39 [place] [id number] [place] [address] 53899- 4362 Jul, [place] [id number] [place] [address] 71816- 1559 Jul, [place] [id number] [place] [address] 43509- 0983 Jul, [facility] [id number] [place] [address] 11588- 3873 Jul, Seizure disorder G40.909 ; Fatigue, unspecified type R53.83 ; Perennial allergic rhinitis, unspecified allergic rhinitis trigger J30.89 and Chronic kidney disease, unspecified stage N18.9 [place] [id number] [place] [address] 78845- 1293 Jul, [facility] [id number] [place] [address] 86070- 1368 Jul, Seizure disorder G40.909 [place] [id number] [place] [address] 46441- 7526 Jun, [place] [id number] [place] [address] 99312- 1734 Jun, [facility] [address] [place] [id number] Jun, Perennial allergic rhinitis, unspecified allergic rhinitis trigger J30.89 [facility] [id number] [place] [address] [id number] Jun, [facility] [id number] [place] [address] 56826- 8824 Jun, Seizure disorder G40.909 [facility] [id number] [place] [address] [id number] Jun, [facility] [id number] [place] [address] [id number] May, [facility] [id number] [place] [address] 19943- 4947 May, [facility] [id number] [place] [address] 97553- 8382 May, [facility] [id number] [place] [address] 43961- 2977 May, [facility] [id number] [place] [address] 40094- 0222 May, History of CVA with residual deficit I69.30 [facility] [id number] [place] [address] 23054- 4322 May, [facility] [id number] [place] [address] 83263- 2631 May, [facility] [id number] [place] [address] 09898- 8762 May, [facility] [id number] [place] [address] 37619- 2889 May, Seizure disorder G40.909 [facility] [id number] [place] [address] 06959- 8897 May, [facility], [facility] [address] [place] [address] May, Back pain M54.9 and Seizure disorder G40.909 [facility] [id number] [place] [address] 72995- 1114 Apr, [facility] [address] [place] [address]- 1135 Apr, Back pain M54.9 [facility] [id number] [place] [address] 11244- 2941 Mar, Compl[facility] [address] [place], [place] [address] Mar, Insomnia, unspecified type G47.00 [facility] [id number] [place] [address] 45052- 3742 Mar, [facility] [address] [facility] [id number] [place] [address] 18773- 4982 Feb, [facility] [id number] [place] [address] 74460- 8915 Feb, [facility] [id number] [place] [address] 73958- 1956 Feb, [facility] [id number] [place] [address] 56346- 7149 Jan, [facility] [id number] [place] [address] 78479- 9750 Jan, [facility] [place] [address] Jan, Seizure disorder G40.909 and Back pain M54.9 [facility] [address], [place] [address]- 3376 Dec, [facility] [id number], [place] [address]- 4359 Dec, [facility] [id number], [place] [address]- 8548 Dec, [facility] [id number] [place] [address] 38752- 8967 Nov, [facility] [address] [address]- 3127 Nov, [facility] [id number] [place] [address] 37639- 6889 08 Nov, 2015 Back pain M54.9 [facility] [id number] [place] [address] 55836- 3435 October, [facility] [id number] [place] [address] 36413- 8987 October, Back pain M54.9 [facility] [address] 06868- 0475 October, Seizure disorder G40.909 and B12 deficiency E53.8 [facility] [address] 94531- 3210 Sep, History of CVA with residual deficit I69.30 [facility] [id number] [place] [address] 62439- 5892 Sep, [facility] [address] 40670- 0676 Sep, [facility] [id number] [place] [address] 10884- 9064 Sep, Back pain M54.9 [facility] [id number] [place] [address] 11968- 2217 Sep, Seizure disorder G40.909 [facility] [id number] [place] [address] 17130- 1132 Aug, Back pain M54.9 [facility] [id number] [place] [address] 13565- 5759 18 Aug, 2015 Seizure disorder G40.909 [facility] [id number] [place] [address] 08698- 6803 16 Aug, 2015 Back pain M54.9 [facility] [id number] [place] [address] 68980- 8307 14 Aug, 2015 Heart failure, unspecified I50.9 [facility] [id number] [place] [address] 65592- 5139 Aug, Medication monitoring encounter Z51.81 [facility] [address] [place] [address] 20160- 1288 15 Jul, 2015 [facility] [id number] [place] [address] 71789- 6990 09 Jul, 2015 Seizure disorder G40.909 [facility] [id number] [place] [address] 57831- 2410 05 Jul, 2015 Back pain M54.9 [facility] [id number] [place] [address] 68518- 3712 Jun, [facility] [id number] [place] [address] 91528- 4483 Jun, [facility] [id number] [place] [address] 69417- 4635 Jun, Mental status change R41.82 ; History of CVA with residual deficit I69.30 ; Back pain M54.9 and Seizure disorder G40.909 [facility] [id number] [place] [address] 72337- 4436 Jun, [facility] [id number] [place] [address] 01329- 2662 May, [facility] [id number] [place] [address] 05013- 0414 Apr, [facility] [id number] [place] [address] 45738- 8605 Apr, Medication monitoring encounter Z51.81 [facility] [id number] [place] [address] [id number]- 9154 Mar, Vomiting R11.10 [facility] [id number] [place] [address] [id number]- 5347 Mar, [facility] [id number] [place] [address] [id number]- 0709 Feb, [facility] [address] [id number] [place] [address] Feb, UTI (urinary tract infection) 599.0 [facility] [address] [id number] [place] [address] Jan, [facility] [address] [id number] [place] [address] 2546 Jan, [facility] [address] [id number] [place] [address] 2066 Jan, [facility] [address] [id number] [place] [address] 0143 Dec, [facility] [address] [id number] [place] [address] 7966 Dec, [facility] [address] [id number] [place] [address] 7486 Dec, [facility] [facility] [address] [id number] [place] [address] Dec, [facility] [address] [id number] [place] [address] Nov, UNKNOWN Nov, [facility] [address] [id number] [place] [address] October, [facility] [address] [id number] [place] [address] Sep, [facility] [address] [id number] [place] [address] Sep, [facility] [address] [id number] [place] [address] Aug, [facility] [place] [facility] [address] [id number] [place] [address] Aug, [facility] [place] [facility] [address] [id number] [place] [address] Jul, [facility] [place] [facility] [address] [id number] [place] [address] Jul, [facility] [place] [facility] [address] [id number] [place] [address] 39[address] Jul, [facility] [place] [facility] [address] [id number] [place] [address] 5604 Jul, [facility] [place] [facility] [address] [id number] [place] [address]- 9319 Jul, [facility] [place] [facility] [address] [id number] [place] [address]- 3673 Jun, [facility] [place] [facility] [address] [id number] [place] [address]- 8431 Jun, [facility] [place] [facility] [address] [id number] [place] [address]- 1136 Jun, [facility] [place] [facility] [address] [id number] [place] [address]- 2490 Jun, [facility] [place] [facility] [address] [id number] [place] [address]- 6[address] Jun, [facility] [place] [facility] [address] [id number] [place] [address]- 7606 Jun, [facility] [place] [facility] [address] [id number] [place] [address]- 0460 Jun, [facility] [place] [facility] [address] [id number] [place] [address]- 8821 Jun, [facility] [place] [facility] [address] [id number] [place] [address]- 9422 Jun, [facility] [place] [facility] [address] [id number] [place] [address]- 64[address] Jun, [facility] [place] [facility] [address] [id number] [place] [address]- 8592 Jun, [facility] [place] [facility] [address] [id number] [place] [address]- 2153 Jun, [facility] [address] [id number] [place] [address]- 9694 Jun, [facility] [address] [id number] [place] [address]- 2598 Jun, [facility] [address] [id number] [place] [address]- 9975 Jun, [facility] [address] [id number] [place] [address]- 5[address] Jun, [facility] [address] [id number] [place] [address]- 8376 Jun, [facility] [address] [id number] [place] [address]- 2676 Jun, [facility] [address] [id number] [place] [address]- 5148 May, [facility] [address] [id number] [place] [address]- 1481 30 May, 2014 [facility] [address] [id number] [place] [address]- 4824 30 May, 2014 [facility] [address] [id number] [place] [address]- 3[address] May, [facility] [address] [id number] [place] [address]- 6083 May, [facility] [place] [facility] [address] [id number] [place] [address]- 1437 16 May, 2014 [facility] [place] [facility] [address] [id number] [place] [address]- 0299 16 May, 2014 [facility] [address] [id number] [place] [address]- 8825 15 May, 2014 [facility] [place] [facility] [address] [id number] [place] [address]- 2088 15 May, 2014 [facility] [address] [place] [id number] May, [facility] [place] [facility] [address] [id number] [place] [address]- 1521 May, [facility] [place] [facility] [address] [id number] [place] [address]- 7955 May, [facility] [place] [facility] [address] [id number] [place] [address]- 2497 May, [facility] [place] [facility] [address] [id number] [place] [address]- 9680 Apr, [facility] [place] [facility] [address] [id number] [place] [address]- 3803 Apr, [facility] [place] [facility] [address] [id number] [place] [address]- 9887 Apr, [facility] [place] [facility] [address] [id number] [place] [address]- 4575 Apr, [facility] [place] [facility] [address] [id number] [place] [address]- 9206 Apr, [facility] [place] [facility] [address] [id number] [place] [address]- 9321 Apr, [facility] [place] [facility] [address] [facility] [id number] [place] [address]- 5066 Mar, [facility] [place] [facility] [address] [id number] [place] [address]- 4285 Mar, [facility] [place] [facility] [address] [id number] [place] [address]- 0170 Mar, [facility] [place] [facility] [address] [id number] [place] [address]- 3017 Mar, [facility] [place] [facility] [address] [facility] [id number] [place] [address]- 8710 Mar, [facility] [place] [facility] [address] [facility] [id number] [place] [address]- 3036 Mar, [facility] [place] [facility] [address] [id number] [place] [address]- 5826 24 Feb, 2013 [facility] [place] [facility] [address] [id number] [place] [address] 2546 24 Feb, 2014 [facility] [place] [facility] [address] [id number] [place] [address] 2546 Feb, 2013 [facility] [place] [facility] [address] [id number] [place] [address] 2546 Feb, 2013 [facility] [place] [facility] [address] [id number] [place] [address] 254 Feb, [facility] [place] [facility] [address] [id number] [place] [address] 2546 Feb, [facility] [place] [facility] [address] [id number] [place] [address]- 6960 Feb, [facility] [place] [facility] [address] [id number] [place] [address]- 1398 Feb, [facility] [place] [facility] [address] [id number] [place] [address] 2549 Feb, [facility] [place] [facility] [address] [id number] [place] [address]- 2543 Feb, [facility] [address] [place] [id number] Feb, [facility] [place] [facility] [address] [id number] [place] [address] 2546 Feb, [facility] [place] [facility] [address] [id number] [place] [address]- 2549 Jan, [facility] [place] [facility] [address] [id number] [place] [address]- 6370 Jan, [facility] [place] [facility] [address] [id number] [place] [address]- 2548 Dec, [facility] [place] [facility] [address] [id number] [place] [address]- 1606 Dec, [facility] [place] [facility] [address] [id number] [place] [address]- 6253 Dec, [facility] [place] [facility] [address] [id number] [place] [address]- 6896 Dec, [facility] [place] [facility] [address] [id number] [place] [address]- 8699 Dec, [facility] [place] [facility] [address] [id number] [place] [address]- 2894 Dec, 2013 [facility] [place] [facility] [address] [id number] [place] [address]- 7280 Dec, [facility] [place] [facility] [address] [id number] [place] [address]- 8068 Dec, [facility] [place] [facility] [address] [id number] [place] [address]- 5182 Dec, [facility] [place] [facility] [address] [id number] [place] [address]- 6450 Dec, [facility] [place] [facility] [address] [id number] [place] [address]- 1235 Nov, [facility] [place] [facility] [address] [id number] [place] [address]- 7699 Nov, [facility] [place] [facility] [address] [id number] [place] [address]- 5944 Nov, [facility] [place] [facility] [address] [id number] [place] [address]- 0856 Nov, [facility] [place] [facility] [address] [id number] [place] [address]- 7387 Nov, [facility] [place] [facility] [address] [id number] [place] [address]- 5063 Nov, [facility] [place] [facility] [address] [id number] [place] [address]- 4844 Nov, [facility] [place] [facility] [address] [id number] [place] [address]- 2107 Nov, [facility] [place] [facility] [address] [id number] [place] [address]- 3493 Nov, [facility] [place] [facility] [address] [id number] [place] [address]- 4875 Nov, [facility] [place] [facility] [address] [id number] [place] [address]- 9446 Nov, [facility] [place] [facility] [address] [id number] [place] [address]- 7007 Nov, [facility] [place] [facility] [address] [id number] [place] [address]- 9022 Nov, [facility] [place] [facility] [address] [id number] [place] [address]- 4223 Nov, [facility] [place] [facility] [address] [id number] [place] [address]- 3345 October, [facility] [place] [facility] [address] [id number] [place] [address]- 1110 October, [facility] [place] [facility] [address] [id number] [place] [address]- 6557 October, [facility] [place] [facility] [address] [id number] [place] [address]- 6853 October, [facility] [place] [facility] [address] [id number] [place] [address]- 7061 October, [facility] [place] [facility] [address] [id number] [place] [address]- 4837 October, [facility] [place] [facility] [address] [id number] [place] [address]- 2074 October, [facility] [place] [facility] [address] [id number] [place] [address]- 8441 October, [facility] [place] [facility] [address] [id number] [place] [address]- 8425 October, [facility] [place] [facility] [address] [id number] [place] [address]- 0697 October, [facility] [place] [facility] [address] [id number] [place] [address]- 9014 Sep, [facility] [place] [facility] [address] [id number] [place] [address]- 9496 Sep, [facility] [place] [facility] [address] [id number] [place] [address]- 9616 Sep, [facility] [place] [facility] [address] [id number] [place] [address]- 8563 Sep, [facility] [place] [facility] [address] [id number] [place] [address]- 9002 Sep, [facility] [place] [facility] [address] [id number] [place] [address]- 5643 Sep, [facility] [place] [facility] [address] [id number] [place] [address]- 4481 Sep, [facility] [place] [facility] [address] [id number] [place] [address]- 0440 Sep, [facility] [place] [facility] [address] [id number] [place] [address]- 7173 Sep, [facility] [place] [facility] [address] [id number] [place] [address]- 3852 Sep, [facility] [place] [facility] [address] [id number] [place] [address]- 9627 Aug, [facility] [place] [facility] [address] [id number] [place] [address]- 2597 Aug, [facility] [place] [facility] [address] [id number] [place] [address]- 8622 Aug, [facility] [place] [facility] [address] [id number] [place] [address]- 3786 Aug, [facility] [place] [facility] [address] [id number] [place] [address]- 6327 Aug, [facility] [place] [facility] [address] [id number] [place] [address]- 4159 Aug, [facility] [place] [facility] [address] [id number] [place] [address]- 8866 Aug, [facility] [place] [facility] [address] [id number] [place] [address]- 1707 Aug, [facility] [place] [facility] [address] [id number] [place] [address]- 9471 Aug, [facility] [place] [facility] [address] [id number] [place] [address]- 1125 Jul, [facility] [place] [facility] [address] [id number] [place] [address]- 5267 Jul, [facility] [place] [facility] [address] [id number] [place] [address]- 3700 Jul, [facility] [place] [facility] [address] [id number] [place] [address]- 8022 Jul, [facility] [place] [facility] [address] [id number] [place] [address]- 6432 Jul, [facility] [place] [facility] [address] [id number] [place] [address]- 8012 Jul, [facility] [place] [facility] [address] [id number] [place] [address]- 7421 Jul, [facility] [place] [facility] [address] [id number] [place] [address]- 6439 Jul, [facility] [place] [facility] [address] [id number] [place] [address]- 9423 Jul, [facility] [place] [facility] [address] [id number] [place] [address]- 6636 Jul, [facility] [place] [facility] [address] [facility] [id number] [place] [address]- 1326 Jul, [facility] [place] [facility] [address] [id number] [place] [address]- 2298 Jul, [facility] [place] [facility] [address] [id number] [place] [address]- 9141 Jul, [facility] [place] [facility] [address] [id number] [place] [address]- 8947 Jul, [facility] [place] [facility] [address] [id number] [place] [address]- 9593 Jul, [facility] [place] [facility] [address] [id number] [place] [address]- 9250 Jul, [facility] [place] [facility] [address] [id number] [place] [address]- 1804 Jun, [facility] [place] [facility] [address] [id number] [place] [address]- 1272 Jun, [facility] [place] [facility] [address] [id number] [place] [address]- 2388 Jun, [facility] [place] [facility] [address] [id number] [place] [address]- 1172 Jun, [facility] [place] [facility] [address] [id number] [place] [address]- 8278 Jun, [facility] [place] [facility] [address] [id number] [place] [address]- 2374 Jun, [facility] [place] [facility] [address] [id number], [place] [address]- 9987 May, [facility] [place] [facility] [address] [id number] [place] [address]- 6263 May, [facility] [place] [facility] [address] [id number] [place] [address]- 1879 May, [facility] [place] [facility] [address] [id number], [place] [address]- 8002 May, [facility] [place] [facility] [address] [id number], [place] [address]- 5713 Apr, [facility] [place] [facility] [address] [id number] [place] [address]- 5966 Apr, [facility] [place] [facility] [address] [id number] [place] [address]- 3694 Apr, [facility] [place] [facility] [address] [id number] [place] [address]- 9720 Apr, [facility] [place] [facility] [address] [id number] [place] [address]- 4896 Apr, [facility] [place] [facility] [address] [id number] [place] [address]- 3794 Apr, [facility] [place] [facility] [address] [id number] [place] [address]- 9206 Apr, [facility] [place] [facility] [address] [id number] [place] [address]- 1935 Apr, [facility] [place] [facility] [address] [id number] [place] [address]- 6757 Apr, [facility] [place] [facility] [address] [id number] [place] [address]- 5890 Apr, [facility] [place] [facility] [address] [facility] [id number], [place] [address]- 2967 Apr, [facility] [place] [facility] [address] [id number], [place] [address]- 3584 Apr, [facility] [place] [facility] [address] [id number], [place] [address]- 5329 Mar, [facility] [place] [facility] [address] [id number], [place] [address]- 9317 28 Mar, 2013 [facility] [place] [facility] [address] [facility] [id number], [place] [address]- 6750 16 Mar, 2013 [facility] [place] [facility] [address] [facility] [id number], [place] [address]- 0307 16 Mar, 2013 [facility] [place] [facility] [address] [id number] [place] [address]- 5415 15 Mar, 2013 [facility] [place] [facility] [address] [id number] [place] [address]- 4946 15 Mar, 2013 [facility] [place] [facility] [address] [id number] [place] [address]- 2546 27 Feb, 2012 [facility] [place] [facility] [address] [id number] [place] [address] 2546 25 Feb, 2012 [facility] [place] [facility] [address] [id number] [place] [address] 2543 25 Feb, 2012 [facility] [place] [facility] [address] [id number] [place] [address]- 9215 23 Feb, 2012 [facility] [place] [facility] [address] [id number] [place] [address]- 8259 17 Feb, 2013 [facility] [place] [facility] [address] [id number] [place] [address]- 8425 10 Feb, 2013 [facility] [place] [facility] [address] [id number] [place] [address]- 5836 04 Feb, 2013 [facility] [place] [facility] [address] [id number] [place] [address]- 3720 30 Jan, 2013 [facility] [place] [facility] [address] [id number] [place] [address]- 4144 Jan, [facility] [place] [facility] [address] [id number] [place] [address]- 2848 Jan, [facility] [place] [facility] [address] [id number] [place] [address]- 2545 14 Jan, 2013 [facility] [place] [facility] [address] [id number] [place] [address]- 4533 Jan, [facility] [place] [facility] [address] [id number] [place] [address]- 6697 Jan, [facility] [place] [facility] [address] [id number] [place] [address]- 7835 Jan, [facility] [address] [id number] [place] [address]- 5657 Dec, [facility] [place] [facility] [address] [id number] [place] [address]- 2651 Dec, [facility] [place] [facility] [address] [id number] [place] [address]- 8658 Dec, [facility] [place] [facility] [address] [id number] [place] [address] Dec, [facility] [place] [facility] [address] [id number] [place] [address] Dec, [facility] [place] [facility] [address] [id number] [place] [address] Dec, [facility] [place] [facility] [address] [id number] [place] [address] Nov, [facility] [place] [facility] [address] [id number] [place] [address] Nov, [facility] [place] [facility] [address] [id number] [place] [address] Nov, [facility] [place] [facility] [address] [id number] [place] [address] Nov, [facility] [place] [facility] [address] [id number] [place] [address] October, [facility] [place] [facility] [address] [id number], [place] [address] October, [facility] [place] [facility] [address] [id number] [place] [address] October, [facility] [place] [facility] [address] [id number] [place] [address] October, [facility] [place] [facility] [address] [id number] [place] [address] Sep, [facility] [place] [facility] [address] [id number] [place] [address] 19 Sep, 2012 [facility] [address] [id number] [place] [address] 16 Sep, 2012 [facility] [address] [id number] [place] [address] 12 Sep, 2012 [facility] [address] [id number] [place] [address]68 04 Sep, 2012 [facility] [address] [id number] [place] [address] 04 Sep, 2012 [facility] [address] [id number] [place] [address] Sep, [facility] [address] [id number] [place] [address] Sep, [facility] [address] [id number] [place] [address] Aug, [facility] [address] [id number] [place] [address] 13 Aug, 2012 [facility] [address] [id number] [place] [address] 05 Aug, 2012 [facility] [address] [facility] [id number] [place] [address] 18 Jul, 2012 [facility] [place] [facility] [address] [facility] [id number] [place] [address] 08 Jul, 2012 [facility] [address] [facility] [id number] [place] [address]- [address] 07 Jul, 2012 [facility] [place] [facility] [address] [id number] [place] [address] 06 Jul, 2012 [facility] [place] [facility] [address] [facility] [id number] [place] [address] 05 Jul, 2012 [facility] [address] [facility] [id number] [place] [address] Jun, [facility] [place] [facility] [address] [id number] [place] [address]68 Jun, [facility] [place] [facility] [address] [id number] [place] [address] Jun, [facility] [place] [facility] [address] [id number] [place] [address] 0551 May, [facility] [place] [facility] [address] [id number] [place] [address] May, [facility] [place] [facility] [address] [id number] [place] [address]658 May, [facility] [place] [facility] [address] [id number] [place] [address]649 May, [facility] [place] [facility] [address] [id number] [place] [address]66 May, [facility] [place] [facility] [address] [id number] [place] [address] May, [facility] [place] [facility] [address] [id number] [place] [address] May, [facility] [place] [facility] [address] [id number], [place] [address] Apr, [facility] [place] [facility] [address] [id number], [place] [address] Apr, [facility] [place] [facility] [address] [id number], [place] [address] Apr, [facility] [place] [facility] [address] [id number] [place] [address] Apr, [facility] [place] [facility] [address] [id number] [place] [address] 5215 Apr, [facility] [place] [facility] [address] [id number], [place] [address] 9[address] Apr, [facility] [place] [facility] [address] [id number], [place] [address]- 1781 Apr, [facility] [place] [facility] [address] [id number] [place] [address]- [address] 13 Apr, 2012 [facility] [place] [facility] [address] [id number], [place] [address] 8265 Apr, [facility] [place] [facility] [address] [facility] [id number] [place] [address]- 9863 Apr, [facility] [place] [facility] [address] [id number], [place] [address] Apr, [facility] [place] [facility] [address] [facility] [id number] [place] [address], [place] [address]- [address]355 Mar, [facility] [place] [facility] [address] [id number], [place] [address]- 0724 Mar, [facility] [place] [facility] [address] [facility] [id number], [place] [address] 4215 Mar, [facility] [place] [facility] [address] [id number], [place] [address] 8770 Mar, [facility] [place] [facility] [address] [facility] [id number], [place] [address]- 4985 Mar, [facility] [place] [facility] [address] [facility] [id number], [place] [address]- 2313 Mar, [facility] [place] [facility] [address] [facility] [id number], [place] [address]- [address]40 Mar, [facility] [place] [facility] [address] [facility] [id number], [place] [address] 1865 Mar, [facility] [place] [facility] [address] [facility] [id number], [place] [address]- 4[address] 16 Mar, 2012 [facility] [place] [facility] [address] [facility] [id number], [place] [address] 16 Mar, 2012 [facility] [place] [facility] [address] [facility] [id number], [place] [address]- 1634 Mar, [facility] [place] [facility] [address] [id number] [place] [address] 2546 28 Sep, 2011 [facility] [place] [facility] [address] [id number] [place] [address] 2546 27 Sep, 2011 [facility] [place] [facility] [address] [id number] [place] [address] 2546 27 Sep, 2011 [facility] [place] [facility] [address] [id number] [place] [address] 2546 26 Sep, 2011 [facility] [place] [facility] [address] [id number] [place] [address] 2546 24 Sep, 2011 [facility] [place] [facility] [address] [address] [id number] [place] [address]46 19 Feb, 2011 [facility] [place] [facility] [address] [id number] [place] [address] 18 Feb, 2011 [facility] [place] [facility] [address] [id number] [place] [address] 18 Feb, 2011 [facility] [place] [facility] [address] [id number] [place] [address] 2545 18 Feb, 2012 [facility] [place] [facility] [address] [id number] [place] [address] Jan, [facility] [place] [facility] [address] [id number] [place] [address] Jan, [facility] [place] [facility] [address] [id number] [place] [address] 2546 Jan, [facility] [place] [facility] [address] [id number] [place] [address] 2546 Jan, [facility] [place] [facility] [address] [id number] [place] [address] 2546 Dec, [facility] [place] [facility] [address] [id number] [place] [address] 2546 Dec, [facility] [place] [facility] [address] [id number] [place] [address] 1466 Dec, [facility] [place] [facility] [address] [id number] [place] [address] 8465 Dec, [facility] [place] [facility] [address] [id number] [place] [address] Dec, [facility] [place] [facility] [address] [id number] [place] [address] Dec, [facility] [place] [facility] [address] [id number] [place] [address] Dec, [facility] [place] [facility] [address] [id number] [place] [address]268 Dec, [facility] [place] [facility] [address] [id number] [place] [address] Dec, [facility] [place] [facility] [address] [id number] [place] [address]67 Dec, [facility] [place] [facility] [address] [id number] [place] [address]60 Dec, [facility] [place] [facility] [address] [id number] [place] [address]49 Dec, [facility] [place] [facility] [address] [id number] [place] [address] 1577 Dec, [facility] [place] [facility] [address] [id number] [place] [address] 5867 Dec, [facility] [place] [facility] [address] [id number] [place] [address] 37[address] Nov, [facility] [place] [facility] [address] [id number] [place] [address] 8268 Nov, [facility] [place] [facility] [address] [id number] [place] [address] 9280 Nov, [facility] [place] [facility] [address] [id number] [place] [address]697 Nov, [facility] [place] [facility] [address] [id number] [place] [address] 8581 07 Nov, 2011 [facility] [address] [id number] [place] [address] 07 Nov, 2011 [facility] [place] [facility] [address] [id number] [place] [address] 1136 October, [facility] [address] [id number] [place] [address] 1346 October, [facility] [place] [facility] [address] [id number] [place] [address]687 October, [facility] [address] [id number] [place] [address] 9788 October, [facility] [place] [facility] [address] [id number] [place] [address] 7835 19 Sep, 2011 [facility] [address] [id number] [place] [address] 4487 17 Sep, 2011 [facility] [place] [facility] [address] [id number] [place] [address] 13 Sep, 2011 [facility] [place] [facility] [address] [id number] [place] [address] 09 Sep, 2011 [facility] [address] [id number] [place] [address] 7416 03 Sep, 2011 [facility] [place] [facility] [address] [id number] [place] [address] 0414 26 Aug, 2011 [facility] [place] [facility] [address] [id number] [place] [address] 3823 26 Aug, 2011 [facility] [place] [facility] [address] [id number] [place] [address] 6849 21 Aug, 2011 [facility] [place] [facility] [address] [id number] [place] [address] 4815 20 Aug, 2011 [facility] [place] [facility] [address] [id number] [place] [address]308 13 Aug, 2011 [facility] [place] [facility] [address] [id number] [place] [address] 1159 Aug, [facility] [address] [id number] [place] [address]396 Aug, [facility] [address] [facility] [id number] [place] [address] 16 Jul, 2011 [facility] [address] [id number] [place] [address] Jul, [facility] [address] [id number] [place] [address] 8989 Jul, [facility] [address] [id number] [place] [address] Jul, [facility] [address] [facility] [id number] [place] [address] Jun, [address] [id number] Jun, [facility] [address] [facility] [id number], [place] [address] 280[address] Jun, [facility] [address] [facility] [id number] [place] [address] 4600 Jun, [facility] [address] [facility] [id number], [place] [address] 9875 Jun, [facility] [address] [facility] [id number], [place] [address] 1516 Jun, [facility] [address] [facility] [id number], [place] [address] 8567 Jun, [facility] [place] [facility] [address] [facility] [id number] [place] [address] 7326 Jun, [facility] [address] [facility] [id number], [place] [address] May, [facility] [address] [id number] [place] [address] 4138 May, [facility] [place] [facility] [address] [id number] [place] [address]- 8962 May, [facility] [place] [facility] [address] [id number] [place] [address] 1008 May, [facility] [place] [facility] [address] [id number] [place] [address] May, [facility] [place] [facility] [address] [id number] [place] [address]- 0692 May, [facility] [place] [facility] [address] [id number] [place] [address]- 6490 May, [facility] [place] [facility] [address] [id number] [place] [address]- 3421 Apr, [facility] [place] [facility] [address] [id number] [place] [address]- 2323 Apr, [facility] [place] [facility] [address] [id number] [place] [address]- 6445 Apr, [facility] [place] [facility] [address] [id number] [place] [address]- 7271 Mar, [facility] [place] [facility] [address] [id number] [place] [address]- 0943 Mar, [facility] [place] [facility] [address] [id number], [place] [address]- 4868 14 Mar, 2011 [facility] [place] [facility] [address] [id number], [place] [address]- 2489 11 Mar, 2011 [facility] [place] [facility] [address] [id number] [place] [address]- 5459 10 Mar, 2011 [facility] [place] [facility] [address] [id number], [place] [address]- 7900 10 Mar, 2011 [facility] [place] [facility] [address] [id number], [place] [address]- 4163 10 Mar, 2011 [facility] [place] [facility] [address] [id number] [place] [address]- 3223 11 Jan, 2011 [facility] [address] [id number] [place] [address]- 4596 27 May, 2010 [facility] [place] [facility] [address] [id number] [place] [address] 2546 21 May, 2010 [facility] [address] [id number] [place] [address] 2546 13 May, 2010 [facility] [place] [facility] [address] [id number] [place] [address] 2546 13 May, 2010 [facility] [place] [facility] [address] [id number] [place] [address]- 3143 10 May, 2010 [facility] [place] [facility] [address] [id number] [place] [address] 2549 06 May, 2010 [facility] [place] [facility] [address] [id number] [place] [address]- 8180 29 Apr, 2010 [facility] [place] [facility] [address] [id number] [place] [address] 2547 26 Apr, 2010 [facility] [place] [facility] [address] [id number] [place] [address] 2545 19 Apr, 2010 [facility] [place] [facility] [address] [facility] [id number] [place] [address]- 254 18 Apr, 2010 [facility] [place] [facility] [address] [id number] [place] [address] 2546 15 Apr, 2010 [facility] [place] [facility] [address] [id number] [place] [address] 254 12 Apr, 2010 [facility] [place] [facility] [address] [id number] [place] [address] 254 12 Apr, 2010 [facility] [place] [facility] [address] [id number] [place] [address] 2546 05 Apr, 2010 [facility] [place] [facility] [address] [id number], [place] [address] 2549 Apr, [facility] [address] [id number], [place] [address] 1346 Apr, [facility] [id number], [place] [address]886 Mar, [facility] [id number], [place] [address]- 6911 Mar, [facility] [id number], [place] [address] 2259 Mar, [facility] [id number], [place] [address]- 1304 Mar, [facility] [id number], [place] [address] 4673 Mar, [facility] [id number], [place] [address]- 7607 Dec, [facility] [id number], [place] [address]- 9640 Nov, IMMUNIZATIONS No Known Immunizations SOCIAL HISTORY Never Assessed REASON FOR VISIT f/u PLAN OF CARE Activity Details Follow Up 2 Weeks Reason: VITAL SIGNS MEDICATIONS Unknown Medications RESULTS No Results PROCEDURES Procedure Date Ordered Result Body Site [facility] ESTAB PT Jan 27, 2018 Psychotherapy, patient &/family, 45 minutes, established patient Jan 27, 2018 INSTRUCTIONS MEDICATIONS ADMINISTERED No Known Medications [...] graft, cholecysectomy Hospitalization History [facility] 12/2016 [facility]2017 [facility]/2018
--- OUTSIDE RECORDS SUMMARY | 2018-07-05 15:02 | XMS REPORT ---
Author Author NAHOMY BETH [facility] Address [address] [place] [address] Care Team Providers Care Film Masker Name Role Phone NAHOMY BETH Unavailable PROBLEMS Type Condition ICD9-CM Code OOB42-OD Code Onset Dates Condition Status SNOMED Code Problem Anemia, unspecified type D64.9 Active 774727129 Problem Personality disorder F60.9 Active 73081618 Problem Factitious disorder imposed on self, recurrent episode F68.10 Active 12130840 Problem Ventral hernia without obstruction or gangrene K43.9 Active 284255372 Problem Allergic state, subsequent encounter T78.40XD Active 477779702 Problem Anxiety F41.9 Active 02626655 Problem Age-related osteoporosis without current pathological fracture M81.0 Active 13144541 Problem Unspecified psychosis not due to a substance or known physiological condition F29 Active 97081183 Problem Iron deficiency anemia, unspecified iron deficiency anemia type D50.9 Active 60582032 Problem History of CVA with residual deficit I69.30 Active 784923594 Problem Seizure disorder G40.909 Active 033148847 Problem Perennial allergic rhinitis, unspecified allergic rhinitis trigger J30.89 Active 559335599 Problem Chronic kidney disease, unspecified stage N18.9 Active 677659954 Problem Back pain M54.9 Active 620498537 Problem Gastroesophageal reflux disease without esophagitis K21.9 Active 455146750 Problem Insomnia, unspecified type G47.00 Active 074098077 Problem History of colon polyps Z86.010 Active 645816918 ALLERGIES Substance Reaction Event Type Date Status Vibramycin Unknown Drug Allergy Dec, Active Tylenol hives Drug Allergy Dec, Active Tegretol Unknown Drug Allergy Dec, Active SulfADIAZINE Unknown Drug Allergy Dec, Active Penicillin V Potassium Unknown Drug Allergy Dec, Active Darvocet A500 Unknown Drug Allergy Dec, Active Codeine Phosphate Unknown Drug Allergy Dec, Active Aspirin Unknown Drug Allergy Dec, Active ENCOUNTERS Encounter Location Date Diagnosis [facility] [address] [address] Mar, [facility] [address] [place] [address] 90377- 5723 Feb, Unspecified psychosis not due to a substance or known physiological condition F29 ; Personality disorder F60.9 and Factitious disorder imposed on self, recurrent episode F68.10 [facility] [address] [address] 05 Feb, [address] [facility] [address] [place] [address] 18839- 3185 Jan, Unspecified psychosis not due to a substance or known physiological condition F29 ; Personality disorder F60.9 and Factitious disorder imposed on self, recurrent episode F68.10 [facility] [id number] [address] Jan, [facility] [id number] [place] [address] 97487- 6155 Jan, Back pain M54.9 and Seizure disorder G40.909 [facility] [address] [address] Jan, Back pain M54.9 [facility] [address] [address] 9[address] Jan, Back pain M54.9 [facility] [address] [address] Jan, [facility] [id number] [place] [address] 72697- 0274 Jan, Unspecified psychosis not due to a substance or known physiological condition F29 ; Personality disorder F60.9 and Factitious disorder imposed on self, recurrent episode F68.10 [facility] [address] [place] [address] 16164- 3848 Dec, Back pain M54.9 ; Seizure disorder G40.909 ; Ventral hernia without obstruction or gangrene K43.9 and History of CVA with residual deficit I69.30 [facility] [address] [place] [address] 09935- 6549 Dec, Unspecified psychosis not due to a substance or known physiological condition F29 ; Personality disorder F60.9 and Factitious disorder imposed on self, recurrent episode F68.10 [facility] [id number] [place] [address] 50706- 0377 Dec, [facility] [facility] [id number] [place] [address] 60785- 5359 Dec, Back pain M54.9 [facility] [id number] [place] [address] 29236- 1225 Dec, Factitious disorder imposed on self, recurrent episode F68.10 ; Personality disorder F60.9 ; Insomnia, unspecified type G47.00 and Anxiety F41.9 [facility] [address] [address] 0138 Nov, Unspecified psychosis not due to a substance or known physiological condition F29 ; Personality disorder F60.9 and Factitious disorder imposed on self, recurrent episode F68.10 [facility] [address] [address] 5193 Nov, Back pain M54.9 [facility] [id number] [place] [address] 99198- 2941 Nov, Unspecified psychosis not due to a substance or known physiological condition F29 ; Personality disorder F60.9 and Factitious disorder imposed on self, recurrent episode F68.10 [facility] [address] [address] 3967 October, [facility] [id number] [place] [address] 47212- 4825 October, [facility] [address] [address] 5413 October, Unspecified psychosis not due to a substance or known physiological condition F29 ; Personality disorder F60.9 and Factitious disorder imposed on self, recurrent episode F68.10 [facility] [address] [address] 6018 October, Back pain M54.9 [facility] [id number] [place] [address] 64146- 0380 October, Seizure disorder G40.909 ; Back pain M54.9 and Allergic state, subsequent encounter T78.40XD [facility] [id number] [place] [address] 58734- 5367 October, [facility] [id number] [place] [address] 79115- 5447 Sep, Back pain M54.9 [facility] [id number] [place] [address] 54193- 4392 Sep, Unspecified psychosis not due to a substance or known physiological condition F29 ; Personality disorder F60.9 and Factitious disorder imposed on self, recurrent episode F68.10 [facility] [address] [address] Sep, [facility] [address] [address] Sep, [facility] [address] [place] [address] 71869- 3323 Sep, [facility] [address] [address] 7[address] Sep, [facility] [id number] [place] [address] 20468- 5112 Aug, [facility] [address] [address] 2657 Aug, Back pain M54.9 [facility] [address] [address] 15 Aug, 2017 Factitious disorder imposed on self, recurrent episode F68.10 ; Personality disorder F60.9 ; Insomnia, unspecified type G47.[address] [facility] [address] [address] 08 Aug, 2017 Back pain M54.9 ; Iron deficiency anemia, unspecified iron deficiency anemia type D50.9 ; Chronic kidney disease, unspecified stage N18.9 and Breast cancer screening Z12.31 [facility] [id number] [place] [address] Jul, Back pain M54.9 [facility] [id number] [place] [address] [id number] Jul, [facility] [id number] [place] [address] [id number] Jul, [facility] [id number] [place] [address] [id number] Jun, Back pain M54.9 [facility] [id number] [place] [address] [id number] Jun, [facility] [id number] [place] [address] [id number] Jun, Back pain M54.9 [facility] [id number] [address] 2747 Jun, Back pain M54.9 ; Seizure disorder G40.909 and Age-related osteoporosis without current pathological fracture M81.0 [facility] [id number] [place] [address] May, [facility] [id number] [place] [address] 13734711- 6793 May, Back pain M54.9 [facility] [id number] [address] 5054 Apr, Back pain M54.9 ; Encounter for immunization Z23 ; Gastroesophageal reflux disease without esophagitis K21.9 ; Age-related osteoporosis without current pathological fracture M81.0 and Chronic pruritus L29.9 [facility] [id number] [place] [address] 41335- 7043 16 Apr, 2017 History of CVA with residual deficit I69.30 [facility] [id number] [place] [address] 70934- 2434 Apr, Factitious disorder imposed on self, recurrent episode F68.10 and Personality disorder F60.9 [facility] [id number] [place] [address] [id number] 08 Apr, [address] [facility] [id number] [place] [address] 49261- 4495 Mar, Factitious disorder imposed on self, recurrent episode F68.10 [place] [facility] [id number] [place] [address] 98534- 2091 Mar, [facility] [id number] [place] [address] [id number] 18 Mar, 2017 [facility] [id number] [place] [address] [id number] 11 Mar, [address] [facility] [address] [place] [address] 35157- 0819 05 Mar, 2017 Back pain M54.9 ; Seizure disorder G40.909 and Age-related osteoporosis without current pathological fracture M81.0 [facility] [address] [place] [address] 96253- 7197 Feb, History of CVA with residual deficit I69.30 [facility] [id number] [place] [address] 68890- 9690 19 Feb, 2017 Factitious disorder imposed on self, recurrent episode F68.10 and Personality disorder F60.9 [facility] [address] [place] [address] 24615- 6166 15 Feb, [address] [facility] [address] [address]- 6[address] Feb, [facility] [address] [place] [address] 24394- 0923 Jan, [facility] [address] [place] [id number] Jan, Age- related osteoporosis without current pathological fracture M81.0 and Allergic state, subsequent encounter T78.40XD [facility] [address] [address]- 8224 Jan, Factitious disorder imposed on self, recurrent episode F68.10 and Personality disorder F60.9 [facility] [address] [address]- 1339 Dec, Back pain M54.9 [facility] [address] [place] [address] 80091- 4707 Dec, Personality disorder F60.9 and Factitious disorder imposed on self, recurrent episode F68.10 [facility] [id number] [place] [address] Dec, Back pain M54.9 [facility] [id number] [place] [address] [id number] Dec, [facility] [id number] [place] [address] [id number], [facility] [address] [address]- 2571 Dec, [facility] [address] [address]- 3297 Nov, [facility] [address] [place] [address] 54905- 3005 Nov, Back pain M54.9 ; Anemia, unspecified type D64.9 and History of colon polyps Z86.010 [facility] [address] [address]- 2546 Nov, Back pain M54.9 [facility] [id number] [place] [id number] October, Back pain M54.9 [facility] [address] [place] [id number] October, Back pain M54.9 and Gastroesophageal reflux disease without esophagitis K21.9 [facility] [id number] [id number] Sep, [facility] [address] [facility] [id number] [place] [address]- 64[address] Sep, [facility] [address] [facility] [id number] [place] [address] 75150- 1979 Sep, [facility] [id number] [address]- 3660 Sep, [facility] [id number] [place] [address] 37050- 2370 Sep, [facility] [id number] [address]- 4576 Sep, Seizure disorder G40.909 [facility] [id number] [address]- 0792 Sep, Back pain M54.9 [facility] [address] [facility] [id number] [place] [address] 97[address] Sep, [facility] [address] [facility] [id number] [place] [address]- 4641 Aug, Back pain M54.9 [facility] [address] [facility] [id number] [place] [address]- 6815 Aug, Seizure disorder G40.909 [facility] [address] [id number] [place] [id number] Aug, [facility] [address] [id number] [place] [id number] Aug, Back pain M54.9 [facility] [id number] [place] [address] Aug, Back pain M54.9 [facility] [id number] [place] [address] [id number] Aug, Back pain M54.9 [facility] [address] [place] [id number] Jul, Weakness R53.1 [facility] [address] [place] [address] 54360- 3739 Jul, Seizure disorder G40.909 [facility] [address] [place] [address] 46165- 6596 Jul, [facility] [id number] [place] [address] 58431- 2621 Jul, Breast cancer screening Z12.39 [facility] [id number] [place] [address] 28762- 6388 Jul, [facility] [address] [place] [address] 67202- 1583 Jul, [facility] [id number] [place] [address] 05510- 4074 Jul, [facility] [address] [place] [address] 31791- 1364 Jul, Seizure disorder G40.909 ; Fatigue, unspecified type R53.83 ; Perennial allergic rhinitis, unspecified allergic rhinitis trigger J30.89 and Chronic kidney disease, unspecified stage N18.9 [facility] [address] [place] [address] 29722- 6852 Jul, [facility] [address] [place] [address] 08759- 5213 Jul, Seizure disorder G40.909 [facility] [address] [place] [address] 39194- 1304 Jun, [facility] [address] [address]- 2042 Jun, [facility] [address] [place] [id number] Jun, Perennial allergic rhinitis, unspecified allergic rhinitis trigger J30.89 [facility] [id number] [id number] Jun, [facility] [id number] [place] [address] 03327- 0500 Jun, Seizure disorder G40.909 [facility] [id number] [place] [address] [id number] Jun, [facility] [id number] [place] [address] [id number] May, [facility] [id number] [place] [address] 83862- 8782 May, [facility] [id number] [place] [address] 77734- 5271 May, [facility] [address] [place] [address] 93298- 8884 May, [facility] [id number] [place] [address] 77061- 1060 May, History of CVA with residual deficit I69.30 [facility] [address] [place] [address] 18978- 0566 May, [facility] [address] [address]- 254 May, [facility] [address] [place] [address] 04614- 6815 May, [facility] [id number] [place] [address] 94829- 7588 May, Seizure disorder G40.909 [facility] [address] [address]- 4117 May, [facility] [address] [place] [address] May, Back pain M54.9 and Seizure disorder G40.909 [facility] [address] [facility] [id number] [place] [address] 49731- 5594 Apr, [facility] [id number] [place] [address] 06208- 1970 Apr, Back pain M54.9 [facility] [id number] [place] [address] 40200- 5624 Mar, [facility] [address] [place] [address] Mar, Insomnia, unspecified type G47.00 [facility] [id number] [place] [address] 88326- 2672 Mar, [facility] [id number] [place] [address] 96493- [address] Feb, [facility] [id number] [place] [address] 22287- 3479 Feb, [facility] [id number] [place] [address] 01203- 2318 Feb, [facility] [address] [place] [address] 35042- 8788 Jan, [facility] [address] [place] [address] 83539- 8154 Jan, [facility] [address] [place] [address] Jan, Seizure disorder G40.909 [address] Back [address] M54.9 [facility] [id number] [place] [address] 23378- 3164 Dec, [facility] [address] [place] [address] 12751- 0065 Dec, [facility] [id number] [place] [address] 15154- 1446 Dec, [facility] [address] [place] [address] 09701- 2555 Nov, [facility] [address] [place] [address] 88967- 1236 Nov, [facility] [id number] [place] [address] 88647- 6554 Nov, Back pain M54.9 [facility] [id number] [place] [address] 10604- 0780 October, [facility] [id number] [place] [address] 06408- 3765 October, Back pain M54.9 [facility] [address] [place] [address] 71224- 0335 October, Seizure disorder G40.[address] [facility] [id number] [place] [address] 71036- 4512 Sep, History of CVA with residual deficit I69.30 [facility] [id number] [place] [address] 75493- 3253 Sep, [facility] [address] [place] [address] 08329- 0921 Sep, [facility] [address] [place] [address] 28771- 9659 Sep, Back pain M54.9 [facility] [address] [place] [address] 25721- 6744 Sep, Seizure disorder G40.909 [facility] [id number] [place] [address] 97632- 4216 Aug, Back pain M54.9 [facility] [address] [place] [address] 60784- 2114 Aug, Seizure disorder G40.909 [facility] [id number] [place] [address] 76408- 3949 16 Aug, [address] [facility] [id number] [place] [address] 60859- 3096 14 Aug, 2015 Heart failure, unspecified I50.9 [facility] [id number] [place] [address] 27936- 0456 14 Aug, 2015 Medication monitoring encounter Z51.81 [facility] [id number] [place] [address] 59808- 4263 15 Jul, 2015 [facility] [id number] [place] [address] 71784- 8394 09 Jul, [address] [facility] [id number] [place] [address] 72739- 4601 05 Jul, [address] [facility] [id number] [place] [address] 63601- 3097 Jun, [facility] [id number] [place] [address] 79715- 3415 Jun, [facility] [id number] [place] [address] 75789- 7186 Jun, Mental status change R41.82 ; History of CVA with residual deficit I69.30 ; Back pain M54.9 and Seizure disorder G40.909 [facility] [address] [place] [address] 38962- 6294 Jun, [facility] [id number] [place] [address] 28723- 5302 May, [facility] [id number] [place] [address] 72236- 7691 Apr, [facility] [id number] [place] [address] 66096- 3339 Apr, Medication monitoring encounter Z51.81 [facility] [id number] [place] [address], [place] [address]- 0210 Mar, Vomiting R11.10 [facility] [address] [id number] [place] [address]- 6696 Mar, [facility] [address] [id number] [place] [address] 2546 Feb, [facility] [address] [id number] [place] [address] Feb, UTI (urinary tract infection) 599.0 [facility] [address] [id number] [place] [address] Jan, [facility] [address] [id number] [place] [address] Jan[facility] [address] [id number] [place] [address] Jan, [facility] [address] [id number] [place] [address] Dec, [facility] [address] [id number] [place] [address] Dec, [facility] [address] [id number] [place] [address] Dec, [facility] [address] [id number] [place] [address] Dec, [facility] [address] [id number] [place] [address] Nov, UNKNOWN Nov, [facility] [address] [id number] [place] [address] October, [facility] [address] [id number] [place] [address] 14 Sep, 2014 [facility] [place] [facility] [address] [id number] [place] [address] Sep, [facility] [address] [id number] [place] [address] Aug, [facility] [place] [facility] [address] [id number] [place] [address] Aug, [facility] [place] [facility] [address] [id number] [place] [address] Jul, [facility] [place] [facility] [address] [id number] [place] [address] Jul, [facility] [place] [facility] [address] [id number] [place] [address] Jul, [facility] [place] [facility] [address] [id number] [place] [address] Jul, [facility] [place] [facility] [address] [id number] [place] [address] Jul, [facility] [place] [facility] [address] [id number] [place] [address] Jun, [facility] [place] [facility] [address] [id number] [place] [address] Jun, [facility] [place] [facility] [address] [id number] [place] [address] Jun, [facility] [place] [facility] [address] [id number] [place] [address] 8528 Jun, [facility] [place] [facility] [address] [id number] [place] [address] 8014 Jun, [facility] [place] [facility] [address] [id number] [place] [address] 1793 Jun, [facility] [place] [facility] [address] [id number] [place] [address]- 4092 Jun, [facility] [place] [facility] [address] [id number] [place] [address]- 2741 Jun, [facility] [place] [facility] [address] [id number] [place] [address]- 8223 Jun, [facility] [place] [facility] [address] [id number] [place] [address]- 0857 Jun, [facility] [place] [facility] [address] [id number] [place] [address]- 5032 Jun, [facility] [place] [facility] [address] [id number] [place] [address]- 2741 Jun, [facility] [place] [facility] [address] [id number] [place] [address]- 6224 Jun, [facility] [place] [facility] [address] [id number] [place] [address] 1848 Jun, [facility] [place] [facility] [address] [id number] [place] [address]- 2556 Jun, [facility] [place] [facility] [address] [id number] [place] [address]- 8076 Jun, [facility] [place] [facility] [address] [id number] [place] [address]- 8074 Jun, [facility] [place] [facility] [address] [id number] [place] [address]- 4248 Jun, [facility] [place] [facility] [address] [id number] [place] [address]- 0729 May, [facility] [place] [facility] [address] [id number] [place] [address]- 4334 May, [facility] [place] [facility] [address] [id number] [place] [address] 30 May, 2014 [facility] [place] [facility] [address] [id number] [place] [address]- 1061 30 May, 2014 [facility] [place] [facility] [address] [id number] [place] [address]- 4436 May, [facility] [place] [facility] [address] [id number] [place] [address]- 7138 16 May, 2014 [facility] [place] [facility] [address] [id number] [place] [address]- 1282 May, [facility] [place] [facility] [address] [id number] [place] [address]- 0357 May, [facility] [place] [facility] [address] [id number] [place] [address]- 1297 May, [facility] [address] [place] [id number] May, [facility] [place] [facility] [address] [id number] [place] [address]- 0556 May, [facility] [place] [facility] [address] [id number] [place] [address]- 3544 May, [facility] [place] [facility] [address] [id number] [place] [address]- 6962 May, [facility] [place] [facility] [address] [id number] [place] [address]- 8445 Apr, [facility] [place] [facility] [address] [id number] [place] [address]- 7017 Apr, [facility] [place] [facility] [address] [id number] [place] [address]- 9940 Apr, [facility] [place] [facility] [address] [id number] [place] [address]- 9785 Apr, [facility] [place] [facility] [address] [id number] [place] [address]- 6319 Apr, [facility] [place] [facility] [address] [id number] [place] [address]- 6191 Apr, [facility] [place] [facility] [address] [id number] [place] [address]- 0940 Mar, [facility] [place] [facility] [address] [id number] [place] [address]- 4743 Mar, [facility] [place] [facility] [address] [id number] [place] [address]- 9580 Mar, [facility] [place] [facility] [address] [id number] [place] [address]- 9013 Mar, [facility] [address] [id number] [place] [address]- 4256 Mar, [facility] [place] [facility] [address] [id number] [place] [address]- 2416 Mar, [facility] [place] [facility] [address] [id number] [place] [address]- 9498 24 Feb, 2014 [facility] [place] [facility] [address] [id number] [place] [address] 2548 24 Feb, 2014 [facility] [place] [facility] [address] [id number] [place] [address]- 2129 Feb, [facility] [place] [facility] [address] [id number] [place] [address]- 8548 Feb, [facility] [place] [facility] [address] [id number] [place] [address]- 4448 Feb, [facility] [place] [facility] [address] [id number] [place] [address]- 2547 Feb, [facility] [place] [facility] [address] [id number] [place] [address]- 8888 Feb, [facility] [address] [id number] [place] [address]- 2541 Feb, [facility] [place] [facility] [address] [id number] [place] [address]- 2546 Feb, [facility] [place] [facility] [address] [id number] [place] [address]- 2543 12 Feb, 2014 [facility] [address] [place] [id number] Feb, [facility] [place] [facility] [address] [id number] [place] [address]- 2540 Feb, [facility] [place] [facility] [address] [id number] [place] [address]- 3531 Jan, [facility] [place] [facility] [address] [id number] [place] [address]- 2493 Jan, [facility] [place] [facility] [address] [id number] [place] [address]- 4045 Dec, [facility] [place] [facility] [address] [id number] [place] [address]- 1846 Dec, [facility] [place] [facility] [address] [id number] [place] [address]- 7491 Dec, [facility] [place] [facility] [address] [id number] [place] [address]- 0314 Dec, [facility] [place] [facility] [address] [id number] [place] [address]- 6214 Dec, [facility] [place] [facility] [address] [id number] [place] [address]- 5531 Dec, [facility] [place] [facility] [address] [id number] [place] [address]- 4799 Dec, [facility] [place] [facility] [address] [id number] [place] [address]- 5913 Dec, [facility] [place] [facility] [address] [id number] [place] [address]- 8367 Dec, [facility] [place] [facility] [address] [id number] [place] [address]- 5007 Dec, [facility] [place] [facility] [address] [id number] [place] [address]- 8153 Nov, [facility] [place] [facility] [address] [id number] [place] [address]- 2542 Nov, [facility] [place] [facility] [address] [id number] [place] [address]- 9842 Nov, [facility] [place] [facility] [address] [id number] [place] [address]- 4726 Nov, [facility] [place] [facility] [address] [id number] [place] [address]- 9783 Nov, [facility] [place] [facility] [address] [id number] [place] [address]- 5726 Nov, [facility] [place] [facility] [address] [id number] [place] [address]- 2278 Nov, [facility] [place] [facility] [address] [id number] [place] [address]- 6028 Nov, [facility] [place] [facility] [address] [id number] [place] [address]- 6110 Nov, [facility] [place] [facility] [address] [id number] [place] [address]- 1268 Nov, [facility] [place] [facility] [address] [id number] [place] [address]- 5746 Nov, [facility] [place] [facility] [address] [id number] [place] [address]- 7197 Nov, [facility] [place] [facility] [address] [id number] [place] [address]- 9005 Nov, [facility] [place] [facility] [address] [id number] [place] [address]- 9550 Nov, [facility] [place] [facility] [address] [id number] [place] [address]- 6967 October, [facility] [place] [facility] [address] [id number] [place] [address]- 4668 October, [facility] [place] [facility] [address] [id number] [place] [address]- 3308 October, [facility] [place] [facility] [address] [id number] [place] [address]- 6789 October, [facility] [place] [facility] [address] [id number] [place] [address]- 6376 October, [facility] [place] [facility] [address] [id number] [place] [address]- 1145 October, [facility] [place] [facility] [address] [id number] [place] [address]- 7958 October, [facility] [place] [facility] [address] [id number] [place] [address]- 2771 October, [facility] [place] [facility] [address] [id number] [place] [address]- 0485 October, [facility] [place] [facility] [address] [id number] [place] [address]- 2666 October, [facility] [place] [facility] [address] [id number] [place] [address]- 6364 Sep, [facility] [place] [facility] [address] [id number] [place] [address]- 8077 Sep, [facility] [place] [facility] [address] [id number] [place] [address]- 0306 Sep, [facility] [place] [facility] [address] [id number] [place] [address]- 9140 Sep, [facility] [place] [facility] [address] [id number] [place] [address]- 7884 Sep, [facility] [place] [facility] [address] [id number] [place] [address]- 5991 Sep, [facility] [place] [facility] [address] [id number] [place] [address]- 8421 Sep, [facility] [place] [facility] [address] [id number] [place] [address]- 6898 Sep, [facility] [place] [facility] [address] [id number] [place] [address]- 4075 Sep, [facility] [place] [facility] [address] [id number] [place] [address]- 1326 Sep, [facility] [place] [facility] [address] [id number] [place] [address]- 0190 Aug, [facility] [place] [facility] [address] [id number] [place] [address]- 6146 Aug, [facility] [place] [facility] [address] [id number] [place] [address]- 8929 10 Aug, 2013 [facility] [place] [facility] [address] [id number] [place] [address]- 9487 10 Aug, 2013 [facility] [place] [facility] [address] [id number] [place] [address]- 2966 Aug, [facility] [place] [facility] [address] [id number] [place] [address]- 9966 Aug, [facility] [place] [facility] [address] [id number] [place] [address]- 3271 05 Aug, 2013 [facility] [place] [facility] [address] [id number] [place] [address]- 9292 Aug, [facility] [place] [facility] [address] [id number] [place] [address]- 1599 Aug, [facility] [place] [facility] [address] [id number] [place] [address]- 5853 Jul, [facility] [place] [facility] [address] [id number] [place] [address]- 1060 Jul, [facility] [place] [facility] [address] [id number] [place] [address]- 9932 Jul, [facility] [place] [facility] [address] [id number] [place] [address]- 6310 Jul, [facility] [place] [facility] [address] [id number] [place] [address]- 7971 Jul, [facility] [place] [facility] [address] [id number] [place] [address]- 7157 Jul, [facility] [place] [facility] [address] [id number] [place] [address]- 3320 Jul, [facility] [place] [facility] [address] [id number] [place] [address]- 4693 Jul, [facility] [place] [facility] [address] [id number] [place] [address]- 5636 Jul, 2013 [facility] [place] [facility] [address] [id number] [place] [address]- 4576 Jul, 2013 [facility] [place] [facility] [address] [id number] [place] [address] 2546 Jul, 2013 [facility] [place] [facility] [address] [id number] [place] [address] 2546 Jul, 2013 [facility] [place] [facility] [address] [id number] [place] [address] 2546 Jul, [facility] [place] [facility] [address] [id number] [place] [address]- 5976 Jul, [facility] [place] [facility] [address] [id number] [place] [address]- 3076 Jul, [facility] [place] [facility] [address] [id number] [place] [address]- 2413 Jul, [facility] [place] [facility] [address] [id number] [place] [address]- 1294 Jun, [facility] [place] [facility] [address] [id number] [place] [address]- 3600 Jun, [facility] [place] [facility] [address] [facility] [id number] [place] [address]- 4278 Jun, [facility] [place] [facility] [address] [id number] [place] [address]- 3942 Jun, [facility] [place] [facility] [address] [id number] [place] [address] 2546 Jun, [facility] [place] [facility] [address] [id number] [place] [address]- 2546 Jun, [facility] [place] [facility] [address] [facility] [id number] [place] [address] 2546 May, [facility] [place] [facility] [address] [id number] [place] [address]- 4481 May, [facility] [place] [facility] [address] [id number] [place] [address]- 8815 May, [facility] [place] [facility] [address] [id number] [place] [address]- 8289 May, [facility] [place] [facility] [address] [id number] [place] [address]- 8126 Apr, [facility] [place] [facility] [address] [id number] [place] [address]- 3460 Apr, [facility] [place] [facility] [address] [id number] [place] [address]- 3650 Apr, [facility] [place] [facility] [address] [id number] [place] [address]- 7981 Apr, [facility] [place] [facility] [address] [id number] [place] [address]- 8415 Apr, [facility] [place] [facility] [address] [id number] [place] [address]- 5053 Apr, [facility] [place] [facility] [address] [id number] [place] [address]- 2023 Apr, [facility] [place] [facility] [address] [id number] [place] [address]- 9000 Apr, [facility] [place] [facility] [address] [id number] [place] [address]- 8556 Apr, [facility] [place] [facility] [address] [id number] [place] [address]- 4648 Apr, [facility] [place] [facility] [address] [id number] [place] [address]- 7305 Apr, [facility] [place] [facility] [address] [id number] [place] [address]- 0566 Apr, [facility] [place] [facility] [address] [id number] [place] [address]- 5577 Mar, [facility] [place] [facility] [address] [id number] [place] [address]- 8909 28 Mar, 2012 [facility] [address] [id number] [place] [address]- 8946 16 Mar, 2012 [facility] [place] [facility] [address] [id number] [place] [address]- 2676 16 Mar, 2012 [facility] [place] [facility] [address] [id number] [place] [address]- 8056 15 Mar, 2013 [facility] [place] [facility] [address] [id number] [place] [address] 2543 15 Mar, 2013 [facility] [place] [facility] [address] [id number] [place] [address]- 8870 27 Feb, 2012 [facility] [place] [facility] [address] [id number] [place] [address]- 7227 25 Feb, 2012 [facility] [place] [facility] [address] [id number] [place] [address]- 2420 25 Feb, 2012 [facility] [place] [facility] [address] [id number] [place] [address] 2545 23 Feb, 2012 [facility] [place] [facility] [address] [id number] [place] [address]- 9021 17 Feb, 2012 [facility] [place] [facility] [address] [id number] [place] [address]- 7661 10 Feb, 2012 [facility] [place] [facility] [address] [id number] [place] [address] 2543 04 Feb, 2012 [facility] [place] [facility] [address] [id number] [place] [address] 2545 30 Jan, 2013 [facility] [place] [facility] [address] [id number] [place] [address]- 6531 20 Jan, 2013 [facility] [place] [facility] [address] [id number] [place] [address]- 2540 15 Jan, 2013 [facility] [place] [facility] [address] [id number] [place] [address]- 4400 14 Jan, 2013 [facility] [place] [facility] [address] [id number] [place] [address]- 8530 Jan, [facility] [place] [facility] [address] [id number] [place] [address]- 3506 Jan, [facility] [place] [facility] [address] [id number] [place] [address]- 3505 Jan, [facility] [place] [facility] [address] [id number] [place] [address]- 3017 Dec, [facility] [place] [facility] [address] [id number] [place] [address]- 4411 Dec, [facility] [place] [facility] [address] [id number] [place] [address]- 9880 Dec, [facility] [place] [facility] [address] [id number] [place] [address]- 3622 Dec, [facility] [place] [facility] [address] [id number] [place] [address]- 1400 Dec, [facility] [place] [facility] [address] [id number] [place] [address]- 5509 Dec, [facility] [place] [facility] [address] [id number] [place] [address]- 9314 Nov, [facility] [place] [facility] [address] [id number] [place] [address]- 4063 Nov, [facility] [place] [facility] [address] [id number] [place] [address]- 1538 Nov, [facility] [place] [facility] [address] [id number] [place] [address]- 0420 Nov, [facility] [place] [facility] [address] [id number] [place] [address]- 1151 October, [facility] [place] [facility] [address] [id number] [place] [address]- 3075 October, [facility] [place] [facility] [address] [id number] [place] [address]- 0066 October, [facility] [address] [id number] [place] 9737 October, [facility] [place] [facility] [address] [id number] [place] [address]- 4959 Sep, [facility] [place] [facility] [address] [id number] [place] [address]- 4956 Sep, [facility] [place] [facility] [address] [id number] [place] [address]- 9078 Sep, [facility] [place] [facility] [address] [id number] [place] [address]- 0494 Sep, [facility] [place] [facility] [address] [id number] [place] [address]- 5559 Sep, [facility] [place] [facility] [address] [id number] [place] [address]- 5495 Sep, [facility] [place] [facility] [address] [id number] [place] [address]- 3858 Sep, [facility] [place] [facility] [address] [id number] [place] [address]- 2629 Sep, [facility] [place] [facility] [address] [id number] [place] [address]- 3083 Aug, [facility] [place] [facility] [address] [id number] [place] [address]- 7681 Aug, [facility] [place] [facility] [address] [id number] [place] [address]- 0461 05 Aug, 2012 [facility] [place] [facility] [address] [id number] [place] [address]- 1614 18 Jul, 2012 [facility] [place] [facility] [address] [id number] [place] [address]- 3570 08 Jul, 2012 [facility] [place] [facility] [address] [id number] [place] [address]- 6123 07 Jul, 2012 [facility] [place] [facility] [address] [id number] [place] [address]- 0657 06 Jul, 2012 [facility] [place] [facility] [address] [id number] [place] [address]- 2027 05 Jul, 2012 [facility] [place] [facility] [address] [id number] [place] [address]- 0236 Jun, [facility] [place] [facility] [address] [id number] [place] [address]- 5600 Jun, [facility] [place] [facility] [address] [id number] [place] [address]- 7864 Jun, [facility] [place] [facility] [address] [id number] [place] [address] May, [facility] [facility] [address] [id number] [place] [address] May, [facility] [place] [facility] [address] [id number] [place] [address] May, [facility] [place] [facility] [address] [id number] [place] [address] May, [facility] [place] [facility] [address] [id number] [place] [address] May, [facility] [place] [facility] [address] [id number] [place] [address] May, [facility] [place] [facility] [address] [id number] [place] [address] May, [facility] [place] [facility] [address] [id number] [place] [address] Apr, [facility] [place] [facility] [address] [id number] [place] [address] Apr, [facility] [place] [facility] [address] [id number] [place] [address] Apr, [facility] [place] [facility] [address] [id number] [place] [address] Apr, [facility] [place] [facility] [address] [id number] [place] [address] Apr, [facility] [place] [facility] [address] [id number] [place] [address]- [address] Apr, [facility] [place] [facility] [address] [id number] [place] [address] Apr, [facility] [place] [facility] [address] [id number] [place] [address] Apr, [facility] [place] [facility] [address] [id number] [place] [address]- [address] Apr, [facility] [place] [facility] [address] [id number] [place] [address] Apr, [facility] [place] [facility] [address] [id number] [place] [address] Apr, [facility] [place] [facility] [address] [id number] [place] [address] Mar, [facility] [place] [facility] [address] [id number] [place] [address] Mar, [facility] [place] [facility] [address] [id number] [place] [address] Mar, [facility] [place] [facility] [address] [id number] [place] [address]- [address] Mar, [facility] [place] [facility] [address] [id number] [place] [address] Mar, [facility] [place] [facility] [address] [id number] [place] [address]- [address] Mar, [facility] [place] [facility] [address] [id number] [place] [address] Mar, [facility] [place] [facility] [address] [id number] [place] [address] Mar, [facility] [place] [facility] [address] [id number] [place] [address]- [address] 16 Mar, 2012 [facility] [place] [facility] [address] [id number] [place] [address]- 6466 16 Mar, 2012 [facility] [place] [facility] [address] [id number] [place] [address] 2546 04 Mar, 2012 [facility] [place] [facility] [address] [id number] [place] [address] 2549 28 Sep, 2011 [facility] [place] [facility] [address] [id number] [place] [address] 2546 27 Sep, 2011 [facility] [place] [facility] [address] [id number] [place] [address] 1573 27 Sep, 2011 [facility] [place] [facility] [address] [id number] [place] [address]- 47[address] 26 Feb, 2011 [facility] [place] [facility] [address] [id number] [place] [address]- 7921 24 Feb, 2011 [facility] [place] [facility] [address] [id number] [place] [address]85 19 Feb, 2011 [facility] [place] [facility] [address] [id number] [place] [address]- 8570 18 Feb, 2012 [facility] [place] [facility] [address] [id number] [place] [address] 254 18 Feb, 2012 [facility] [place] [facility] [address] [id number] [place] [address] 2547 18 Feb, 2012 [facility] [place] [facility] [address] [id number] [place] [address] 254 30 Jan, 2012 [facility] [place] [facility] [address] [id number] [place] [address]- [address] Jan, [facility] [place] [facility] [address] [facility] [id number] [place] [address]- [address] Jan, [facility] [place] [facility] [address] [id number] [place] [address]- [address] Jan, [facility] [place] [facility] [address] [id number] [place] [address]- [address] Dec, [facility] [place] [facility] [address] [id number] [place] [address] Dec, [facility] [place] [facility] [address] [id number] [place] [address] Dec, [facility] [place] [facility] [address] [id number] [place] [address] 1747 Dec, [facility] [place] [facility] [address] [id number] [place] [address]887 Dec, [facility] [place] [facility] [address] [id number] [place] [address]- [address]63 Dec, [facility] [place] [facility] [address] [id number] [place] [address]- [address] Dec, [facility] [place] [facility] [address] [id number] [place] [address]- 1640 Dec, [facility] [place] [facility] [address] [id number] [place] [address]- [address] Dec, [facility] [place] [facility] [address] [id number] [place] [address]- [address] Dec, [facility] [place] [facility] [address] [id number] [place] [address]- [address]37 Dec, [facility] [place] [facility] [address] [id number] [place] [address]- 9483 Dec, [facility] [place] [facility] [address] [id number] [place] [address]- [address] Dec, [facility] [place] [facility] [address] [id number] [place] [address]- 1434 Dec, [facility] [place] [facility] [address] [id number] [place] [address]- 8295 Nov, [facility] [place] [facility] [address] [id number] [place] [address]- [address] 14 Nov, 2011 [facility] [place] [facility] [address] [id number] [place] [address]- 7065 11 Nov, 2011 [facility] [place] [facility] [address] [id number] [place] [address] 07 Nov, 2011 [facility] [place] [facility] [address] [id number] [place] [address]- [address] Nov, [facility] [place] [facility] [address] [id number] [place] [address]- [address] Nov, [facility] [place] [facility] [address] [id number] [place] [address]- 83[address] October, [facility] [place] [facility] [address] [id number] [place] [address]- 475[address] October, [facility] [place] [facility] [address] [id number] [place] [address]- [address]257 October, [facility] [place] [facility] [address] [id number] [place] [address]- 1037 October, [facility] [place] [facility] [address] [id number] [place] [address]- [address] Sep, [facility] [place] [facility] [address] [id number] [place] [address]- 4021 17 Sep, 2011 [facility] [place] [facility] [address] [id number] [place] [address]- 6490 Sep, [facility] [place] [facility] [address] [id number] [place] [address]- [address] Sep, [facility] [place] [facility] [address] [id number] [place] [address]- [address]666 Sep, [facility] [place] [facility] [address] [id number] [place] [address]- 6983 Aug, [facility] [place] [facility] [address] [id number] [place] [address]- [address] Aug, [facility] [place] [facility] [address] [id number] [place] [id number] 21 Aug, 2011 [facility] [address] [id number] [place] [address] 20 Aug, 2011 [facility] [address] [id number] [place] [address] 13 Aug, 2011 [facility] [address] [id number] [place] [address] 02 Aug, 2011 [facility] [address] [id number] [place] [address] Aug, [facility] [address] [id number] [place] [address] 16 Jul, 2011 [facility] [address] [id number] [place] [address] 16 Jul, 2011 [facility] [address] [id number] [place] [address] 15 Jul, 2011 [facility] [address] [id number] [place] [address] 15 Jul, 2011 [facility] [address] [facility] [id number] [place] [address] Jun, [address] [id number] Jun, [facility] [address] [id number] [place] [address] Jun, [facility] [address] [id number] [place] [address] Jun, [facility] [address] [id number] [place] [address]40 Jun, [facility] [address] [facility] [id number] [place] [address] Jun, [facility] [address] [id number] [place] [address] Jun, [facility] [address] [id number] [place] [address] 130[address] Jun, [facility] [place] [facility] [address] [id number] [place] [address]361 May, [facility] [place] [facility] [address] [id number] [place] [address]- [address] May, [facility] [place] [facility] [address] [id number] [place] [address] May, [facility] [place] [facility] [address] [id number] [place] [address] May, [facility] [place] [facility] [address] [id number] [place] [address] 6683 May, [facility] [place] [facility] [address] [id number] [place] [address] May, [facility] [place] [facility] [address] [id number] [place] [address] May, [facility] [place] [facility] [address] [id number] [place] [address] Apr, [facility] [place] [facility] [address] [id number] [place] [address] 9097 Apr, [facility] [place] [facility] [address] [id number] [place] [address]- 5627 Apr, [facility] [place] [facility] [address] [id number] [place] [address] Mar, [facility] [place] [facility] [address] [id number] [place] [address] Mar, [facility] [place] [facility] [address] [id number] [place] [address] 2602 14 Mar, 2011 [facility] [place] [facility] [address] [id number] [place] [address]- 9692 11 Mar, 2011 [facility] [place] [facility] [address] [id number] [place] [address]- 2491 10 Mar, 2011 [facility] [place] [facility] [address] [id number] [place] [address] 7816 10 Mar, 2011 [facility] [place] [facility] [address] [id number] [place] [address] 6156 10 Mar, 2011 [facility] [place] [facility] [address] [id number] [place] [address] 2546 11 Jan, 2011 [facility] [place] [facility] [address] [id number] [place] [address] 2540 27 May, 2010 [facility] [place] [facility] [address] [id number] [place] [address] 2542 May, [facility] [place] [facility] [address] [id number] [place] [address] 295[address] 13 May, 2010 [facility] [place] [facility] [address] [id number] [place] [address] 0[address] 13 May, 2010 [facility] [place] [facility] [address] [id number] [place] [address] 33[address] May, [facility] [place] [facility] [address] [id number] [place] [address] 4693 06 May, 2010 [facility] [place] [facility] [address] [id number] [place] [address]- 1174 29 Apr, 2010 [facility] [place] [facility] [address] [id number] [place] [address]- 8214 26 Apr, 2010 [facility] [place] [facility] [address] [id number] [place] [address]- 0080 19 Apr, 2010 [facility] [place] [facility] [address] [id number] [place] [address] 2549 18 Apr, 2010 [facility] [place] [facility] [address] [id number] [place] [address]- 2548 15 Apr, 2010 [facility] [place] [facility] [address] [id number] [place] [address]- 2540 12 Apr, 2010 [facility] [place] [facility] [id number] [address] Apr, [facility] [id number] [address] Apr, [facility] [id number] [address] Apr, [facility] [id number] [place] [address] 7382 Apr, [facility] [id number] [place] [address] 3167 Mar, [facility] [id number] [place] [address] 7179 Mar, [facility] [id number] [place] [address]- 0287 Mar, [facility] [id number] [place] [address]- 77[address] Mar, [facility] [address] [address] Mar, [facility] [id number] [place] [address] Dec, [facility] [address] [address] Nov, IMMUNIZATIONS No Known Immunizations SOCIAL HISTORY Never Assessed REASON FOR VISIT Pain management (chronic), PT says she has a hernia that needs surgery-Sarah OTERO PLAN OF CARE Activity Details Follow Up 2 Months Reason: VITAL SIGNS Height 62 in 2018-01-17 Weight 113.4 lbs 2018-01-17 Temperature 98.5 degrees Fahrenheit 2018-01-17 Heart Rate 48 bpm 2018-01-17 Respiratory Rate 18 2018-01-17 BMI 20.74 kg/m2 2018-01-17 Blood pressure systolic 132 mmHg 2018-01-17 Blood pressure diastolic 72 mmHg 2018-01-17 MEDICATIONS Medication Instructions Dosage Frequency Start Date End Date Duration Status Ibuprofen 200 mg Orally every 6 hours as needed for headache 2 tablets Active Lipitor 40 mg Orally Once a day 1 tablet 24h Active Gabapentin 400 MG TAKE 1 CAPSULE BY MOUTH AT BEDTIME 30 Active Fluticasone Propionate 50 MCG/ACT INSTILL 1 SPRAY IN EACH NOSTRIL TWICE DAILY 30 Active Nitroglycerin 0.2 MG/HR APPLY ONE PATCH TRANSDERMALLY DAILY AND REMOVE AT BEDTIME 30 Active Restasis 0.05 % 1 DROP EACH EYE TWICE DAILY 30 Active Vitamin D (Ergocalciferol) 61343 UNIT Orally 2 times a day every 7 days 1 capsule Active Melatonin 5 mg Orally at bedtime 1 tablet 30 days Active Refresh Liquigel 1 % Ophthalmic 4 times a day 1 drop into affected eye as needed 6h Active Nitro-Dur 0.2 MG/HR Transdermal Once a day 1 patch to skin remove after 12 hours 24h Active Sodium Bicarbonate 650 MG Orally Once a day 1 tablet 24h Active Bisacodyl 10 mg Rectal Once a day prn 1 suppository as needed Active Zofran ODT 4 mg Orally every 8 hrs 1 tablet on the tongue and allow to dissolve 8h Active Refresh Tears 0.5 % 1 drop into affected eye as needed Active MiraLax Orally twice a day 17 GM 12h Active Tussin Cough DM 100-10 MG/5ML Orally every 6 hrs as needed for cough 10 ml as needed Active Fioricet 50-300-40 MG Orally every 6 hrs prn 1 capsule as needed Active Citalopram Hydrobromide 10 mg Orally Once a day 1 tablet 24h 30 days Active Topiramate 100 MG TAKE 1 TABLET BY MOUTH TWICE DAILY 30 Active Phenytoin Sodium Extended 100 MG TAKE 1 CAPSULE BY MOUTH TWICE DAILY 30 Active Acetaminophen 650 MG Orally every 6 hrs 1 tablet as needed 6h Active Metoprolol Tartrate 50 MG Orally Twice a day TAKE 1 TABLET BY MOUTH TWICE DAILY 12h Active Hydrocortisone 2.5 % APPLY TO DRY SKIN ONCE DAILY NEEDED 30 Active Coumadin 1 MG Orally 1 mg on sundays only, 1.5mg other days 1 tablet Active Clorazepate Dipotassium 3.75 MG Orally Twice a day 1 tablets 12h 28 Active Fexofenadine HCl 180 MG Orally Once a day 1 tablet 24h Active Rosuvastatin Calcium 10 MG TAKE ONE TABLET BY MOUTH EVERY NIGHT AT BEDTIME 30 Active Lamotrigine 100 MG TAKE 1 TABLET BY MOUTH TWICE DAILY 30 Active Hydrocortisone 2.5 % Externally every 24 hours as needed for dry skin 1 application to affected area Active Fentanyl 75 MCG/HR Transdermal every 72 hours 1 patch to skin Dec, 30 days Active Famotidine 20 mg Orally Once a day 1 tablet at bedtime 24h October, 90 days Active RESULTS No Results PROCEDURES Procedure Date Ordered Result Body Site [facility] VISIT ESTABLISHED PATIENT January 17, 2018 INSTRUCTIONS MEDICATIONS ADMINISTERED No Known Medications [...] surgery and skin graft, cholecysectomy Hospitalization History [facility] 12/2016 [facility]2017 [facility] 01/2018
--- OUTSIDE RECORDS SUMMARY | 2018-07-05 15:03 | XMS REPORT ---
Author Author NAHOMY BETH Organization [facility] Address [address] [place] [address] Care Team Providers Care Teleradiologist Name Role Phone NAHOMY BETH Unavailable PROBLEMS Type Condition ICD9-CM Code UCF23-QZ Code Onset Dates Condition Status SNOMED Code Problem Anemia, unspecified type D64.9 Active 955527229 Problem Personality disorder F60.9 Active 90365090 Problem Factitious disorder imposed on self, recurrent episode F68.10 Active 31844342 Problem Ventral hernia without obstruction or gangrene K43.9 Active 139788411 Problem Allergic state, subsequent encounter T78.40XD Active 986527017 Problem Anxiety F41.9 Active 94009592 Problem Age-related osteoporosis without current pathological fracture M81.0 Active 12540634 Problem Unspecified psychosis not due to a substance or known physiological condition F29 Active 31735686 Problem Iron deficiency anemia, unspecified iron deficiency anemia type D50.9 Active 90697504 Problem History of CVA with residual deficit I69.30 Active 754007439 Problem Seizure disorder G40.909 Active 059562180 Problem Perennial allergic rhinitis, unspecified allergic rhinitis trigger J30.89 Active 533271647 Problem Chronic kidney disease, unspecified stage N18.9 Active 993602620 Problem Back pain M54.9 Active 380414084 Problem Gastroesophageal reflux disease without esophagitis K21.9 Active 262599546 Problem Insomnia, unspecified type G47.00 Active 767766067 Problem History of colon polyps Z86.010 Active 595623318 ALLERGIES No Information ENCOUNTERS Encounter Location Date Diagnosis [facility] [id number] [address] Mar, [facility] [id number] [address] 7[address] Feb, [facility] [id number] [place] [address] 82557- 7764 05 Feb, 2018 Back pain M54.9 [facility] [id number] [place] [address] 96828- 5432 Jan, Unspecified psychosis not due to a substance or known physiological condition F29 ; Personality disorder F60.9 and Factitious disorder imposed on self, recurrent episode F68.10 [facility] [id number] [place] [address] 11597- 4043 Jan, [place] [id number] [place] [address] 54595- 5774 Jan, Back pain M54.9 and Seizure disorder G40.909 [place] [id number] [place] [address] 46766- 8080 Jan, Back pain M54.9 [place] [id number] [place] [address] 37713- 9166 17 Jan, 2018 Back pain M54.9 [place] [id number] [place] [address] 93502- 8153 Jan, [place] [id number] [place] [address] 19845- 0787 Jan, Unspecified psychosis not due to a substance or known physiological condition F29 ; Personality disorder F60.9 and Factitious disorder imposed on self, recurrent episode F68.10 [place] [id number] [place] [address] 04630- 9114 Dec, Back pain M54.9 ; Seizure disorder G40.909 ; Ventral hernia without obstruction or gangrene K43.9 and History of CVA with residual deficit I69.30 [facility] [id number] [place] [address] 98445- 0647 Dec, Unspecified psychosis not due to a substance or known physiological condition F29 ; Personality disorder F60.9 and Factitious disorder imposed on self, recurrent episode F68.10 [place] [id number] [address] Dec, [facility] [id number] [place] [address] 48995- 7890 Dec, Back pain M54.9 [facility] [id number] [address] 0170 Dec, Factitious disorder imposed on self, recurrent episode F68.10 ; Personality disorder F60.9 ; Insomnia, unspecified type G47.00 and Anxiety F41.9 [facility] [id number] [place] [address] 98750- 1813 Nov, Unspecified psychosis not due to a substance or known physiological condition F29 ; Personality disorder F60.9 and Factitious disorder imposed on self, recurrent episode F68.10 [place] [id number] [address] 8348 Nov, Back pain M54.9 [facility] [address] [place] [address] 55221- 3339 Nov, Unspecified psychosis not due to a substance or known physiological condition F29 ; Personality disorder F60.9 and Factitious disorder imposed on self, recurrent episode F68.10 [facility] [address] [address] 1745 October, [place] [address], [place] [address] 4005 October, [facility] [id number] [place] [address] 28793- 8794 October, Unspecified psychosis not due to a substance or known physiological condition F29 ; Personality disorder F60.9 and Factitious disorder imposed on self, recurrent episode F68.10 [facility] [address], [place] [address] 3388 October, Back pain M54.9 [facility] [address], [place] [address] 2247 October, Seizure disorder G40.909 ; Back pain M54.9 and Allergic state, subsequent encounter T78.40XD [place] [id number] [place] [address] 86383- 7603 October, [facility] [id number] [place] [address] 11357- 3869 Sep, Back pain M54.9 [place] [id number] [place] [address] 40090- 4954 Sep, Unspecified psychosis not due to a substance or known physiological condition F29 ; Personality disorder F60.9 and Factitious disorder imposed on self, recurrent episode F68.10 [place] [id number] [place] [address] 03849- 8257 Sep, [place] [id number] [place] [address] 74474- 6296 Sep, [place] [id number] [place] [address] 22056- 4853 Sep, [place] [id number] [place] [address] 83263- 7307 Sep, [place] [id number] [place] [address] 84545- 3173 Aug, [place] [id number] [place] [address] 79614- 2322 Aug, Back pain M54.9 [place] [id number] [place] [address] 88144- 8277 15 Aug, 2017 Factitious disorder imposed on self, recurrent episode F68.10 ; Personality disorder F60.9 ; Insomnia, unspecified type G47.00 and Anxiety F41.9 [facility] [address] [place] [address] 27751- 0468 08 Aug, 2017 Back pain M54.9 ; Iron deficiency anemia, unspecified iron deficiency anemia type D50.9 ; Chronic kidney disease, unspecified stage N18.9 and Breast cancer screening Z12.31 [facility] [address] [id number] [id number] Jul, Back pain M54.9 [facility] [id number] [id number] Jul, [facility] [id number] [id number] Jul, [facility] [id number] [id number] Jun, Back pain M54.9 [facility] [address] [id number] [id number] Jun, [facility] [id number] [id number] Jun, Back pain M54.9 [facility] [id number] [address]- 6071 Jun, Back pain M54.9 ; Seizure disorder G40.909 and Age-related osteoporosis without current pathological fracture M81.0 [facility] [address] [id number] [id number] May, [facility] [id number] May, Back pain M54.9 [facility] [id number] [address] [address] Apr, Back pain M54.9 ; Encounter for immunization Z23 ; Gastroesophageal reflux disease without esophagitis K21.9 ; Age-related osteoporosis without current pathological fracture M81.0 and Chronic pruritus L29.9 [facility] [id number] [address] [address] Apr, History of CVA with residual deficit I69.30 [facility] [id number] [address] Apr, Factitious disorder imposed on self, recurrent episode F68.10 and Personality disorder F60.9 [facility] [address] [id number] 08 Apr, 2017 Back pain M54.9 [facility] [address] [place] [address] 34390- 4886 Mar, Factitious disorder imposed on self, recurrent episode F68.10 [facility] [address] [place] [address] 38872- 4240 Mar, [facility] [id number] [place] [address] [id number] Mar, [facility] [id number] [place] [address] [id number] Mar, Back pain M54.9 [place] [id number] [place] [address] 05471- 0181 Mar, Back pain M54.9 ; Seizure disorder G40.909 and Age-related osteoporosis without current pathological fracture M81.0 [place] [id number] [place] [address] 99259- 9522 Feb, History of CVA with residual deficit I69.30 [place] [id number] [place] [address] 32825- 1867 Feb, Factitious disorder imposed on self, recurrent episode F68.10 and Personality disorder F60.9 [facility] [address] [place] [address] 79245- 5749 15 Feb, 2017 Back pain M54.9 [facility] [address] [place] [address] 78968- 4363 Feb, [facility] [id number] [place] [address] 16811- 4876 Jan, [facility] [address] [place] [id number] Jan, Age- related osteoporosis without current pathological fracture M81.0 and Allergic state, subsequent encounter T78.40XD [place] [address], [place] [address]- 3414 Jan, Factitious disorder imposed on self, recurrent episode F68.10 and Personality disorder F60.9 [facility] [address], [place] [address]- 2237 Dec, Back pain M54.9 [facility] [address], [place] [address]- 0160 Dec, Personality disorder F60.9 and Factitious disorder imposed on self, recurrent episode F68.10 [facility] [id number] [id number] Dec, Back pain M54.9 [facility] [id number] [place] [address] [id number] Dec, [facility] [id number] [place] [address] [id number] Dec, [facility] [address], [place] [address]- 7728 Dec, [facility] [id number] [place] [address] 38026- 8112 Nov, [facility] [id number] [place] [address] 49345- 3123 Nov, Back pain M54.9 ; Anemia, unspecified type D64.9 and History of colon polyps Z86.010 [facility] [address], [place] [address]- 7283 Nov, Back pain M54.9 [facility] [id number], [place] [id number] October, Back pain M54.9 [facility] [address] [place] [id number] October, Back pain M54.9 and Gastroesophageal reflux disease without esophagitis K21.9 [facility] [id number] [id number] Sep, [facility] [address] [facility] [id number], [place] [address] Sep, [facility] [address], [place] [address] 2407 Sep, [facility] [address] [facility] [id number], [place] [address]- 3486 Sep, [facility] [address], [place] [address] 3867 Sep, [facility] [id number], [place] [address]- 8060 Sep, Seizure disorder G40.909 [facility] [address], [place] [address]- 1266 Sep, Back pain M54.9 [facility] [address], [place] [address] 3609 Sep, [facility] [address], [place] [address]- 3424 Aug, Back pain M54.9 [facility] [address], [place] [address]- 7076 Aug, Seizure disorder G40.909 [facility] [id number], [place] [id number] Aug, [facility] [id number] [id number] 16 Aug, 2016 Back pain M54.9 [facility] [id number] [id number] Aug, Back pain M54.9 [facility] [id number] [id number] Aug, Back pain M54.9 [facility] [address] [place] [id number] Jul, Weakness R53.1 [facility] [address], [place] [address]- 0063 Jul, Seizure disorder G40.909 [facility] [id number] [place] [address] 11817- 1201 Jul, [facility] [id number] [place] [address] 22112- 2148 Jul, Breast cancer screening Z12.39 [facility] [id number] [place] [address] 50721- 9174 Jul, [facility] [id number] [place] [address] 07382- 2031 Jul, [facility] [id number] [place] [address] 41067- 7617 Jul, [facility] [id number] [place] [address] 52511- 5901 Jul, Seizure disorder G40.909 ; Fatigue, unspecified type R53.83 ; Perennial allergic rhinitis, unspecified allergic rhinitis trigger J30.89 and Chronic kidney disease, unspecified stage N18.9 [facility] [address] [place] [address] 18868- 3990 Jul, [facility] [id number] [place] [address] 29530- 1175 Jul, Seizure disorder G40.909 [facility] [id number] [place] [address] 67971- 9072 Jun, [facility] [id number] [place] [address] 87030- 1187 Jun, [facility] [address] [id number] Jun, Perennial allergic rhinitis, unspecified allergic rhinitis trigger J30.89 [facility] [id number] [place] [address] [id number] Jun, [facility] [id number] [place] [address] 64590- 0204 Jun, Seizure disorder G40.909 [facility] [id number] [place] [address] [id number] Jun, [facility] [id number] [place] [address] [id number] May, [facility] [id number] [place] [address] 86270- 4693 May, [facility] [id number] [place] [address] 64841- 0275 May, [facility] [id number] [place] [address] 07948- 0989 May, [facility] [id number] [place] [address] 23069- 7327 May, History of CVA with residual deficit I69.30 [facility] [id number] [place] [address] 72302- 6068 May, [facility] [id number] [place] [address] 87425- 5973 May, [facility] [id number] [place] [address] 07169- 2680 May, [facility] [id number] [place] [address] 60428- 5650 May, Seizure disorder G40.909 [facility] [id number] [place] [address] 20408- 6243 May, [facility] [address] [place] [address] May, Back pain M54.9 and Seizure disorder G40.909 [facility] [id number] [place] [address] 99346- 6968 Apr, [facility] [id number] [place] [address] 63430- 3399 Apr, Back pain M54.9 [facility] [id number], [place] [address]- 8900 Mar, [facility] [address] [place] [address] Mar, Insomnia, unspecified type G47.00 [facility] [address] [facility] [id number], [place] [address]- 2117 Mar, [facility] [address] [facility] [id number] [place] [address] 40962- 9196 Feb, [facility] [address] [facility] [id number] [place] [address] 26084- 0421 Feb, [facility] [id number] [place] [address] 16694- 2933 Feb, [facility] [id number] [place] [address] 31477- 1877 Jan, [facility] [id number] [place] [address] 02441- 0580 Jan, [facility] [address] [place] [address] Jan, Seizure disorder G40.909 and Back pain M54.9 [facility] [id number] [place] [address] 51466- 9270 Dec, [facility] [address], [place] [address]- 8863 Dec, [facility] [address], [place] [address]- 1835 Dec, [facility] [id number], [place] [address]- 2996 Nov, [facility] [id number] [place] [address] 47037- 8784 Nov, [facility] [id number], [place] [address]- 1665 Nov, Back pain M54.9 [facility] [id number] [place] [address] 55323- 5039 October, [facility] [id number] [place] [address] 12791- 6985 October, Back pain M54.9 [facility] [id number] [place] [address] 53551- 6145 October, Seizure disorder G40.909 and B12 deficiency E53.8 [facility] [address] 42436- 9813 Sep, History of CVA with residual deficit I69.30 [facility] [address] 39611- 7666 Sep, [facility] [address] 28238- 9975 Sep, [facility] [id number] [place] [address] 07624- 7231 Sep, Back pain M54.9 [facility] [id number] [place] [address] 67929- 1239 Sep, Seizure disorder G40.909 [facility] [id number] [place] [address] 49971- 4168 Aug, Back pain M54.9 [facility] [id number] [place] [address] 49640- 9604 18 Aug, 2015 Seizure disorder G40.909 [facility] [id number] [place] [address] 22838- 5786 16 Aug, 2015 Back pain M54.9 [facility] [id number] [place] [address] 03646- 8113 14 Aug, 2015 Heart failure, unspecified I50.9 [facility] [id number] [place] [address] 68279- 6064 14 Aug, 2015 Medication monitoring encounter Z51.81 [facility] [address] 59068- 8497 Jul, [facility] [address], [place] [address]- 7555 Jul, Seizure disorder G40.909 [facility] [address]- 0720 05 Jul, 2015 Back pain M54.9 [facility] [id number] [place] [address] 44867- 8896 Jun, [facility] [id number] [place] [address] 46391- 8957 Jun, [facility] [id number] [place] [address] 33381- 2525 Jun, Mental status change R41.82 ; History of CVA with residual deficit I69.30 ; Back pain M54.9 and Seizure disorder G40.909 [facility] [id number] [place] [address] 56289- 3753 Jun, [facility] [address], [place] [address]- 8135 May, [facility] [id number] [place] [address] 85382- 8314 Apr, [facility] [id number] [place] [address] 94908- 4953 Apr, Medication monitoring encounter Z51.81 [facility] [address] [address]- 3501 Mar, Vomiting R11.10 [facility] [id number] [address] Mar, [facility] [id number] [place] [address] [id number]- [id number] 18 Feb, 2015 [facility] [id number] [address] 10 Feb, 2015 UTI (urinary tract infection) 599.0 [facility] [place] [facility] [address] [id number] [place] [address] Jan, [facility] [place] [facility] [address] [id number] [place] [address] Jan, [facility] [place] [facility] [address] [id number] [place] [address] Jan, [facility] [place] [facility] [address] [id number] [place] [address] Dec, [facility] [place] [facility] [address] [id number] [place] [address] Dec, [facility] [place] [facility] [address] [id number] [place] [address] Dec, [facility] [place] [facility] [address] [id number] [place] [address] Dec, [facility] [place] [facility] [address] [id number] [place] [address] Nov, UNKNOWN Nov, [facility] [place] [facility] [address] [id number] [place] [address] October, [facility] [place] [facility] [address] [id number] [place] [address] Sep, [facility] [place] [facility] [address] [id number] [place] [address] Sep, [facility] [place] [facility] [address] [id number] [place] [address] Aug, [facility] [place] [facility] [address] [id number] [place] [address] Aug, [facility] [place] [facility] [address] [id number] [place] [address] Jul, [facility] [place] [facility] [address] [id number] [place] [address] Jul, [facility] [place] [facility] [address] [id number] [place] [address] 13 Jul, 2014 [facility] [address] [id number] [place] [address] Jul, [facility] [place] [facility] [address] [id number] [place] [address] Jul, [facility] [place] [facility] [address] [id number] [place] [address] Jun, [facility] [place] [facility] [address] [id number] [place] [address] Jun, [facility] [address] [id number] [place] [address] Jun, [facility] [place] [facility] [address] [id number] [place] [address] Jun, [facility] [place] [facility] [address] [id number] [place] [address] Jun, [facility] [facility] [address] [id number] [place] [address] 65[address] Jun, [facility] [place] [facility] [address] [id number] [place] [address] 0160 Jun, [facility] [place] [facility] [address] [id number] [place] [address] 7708 Jun, [facility] [place] [facility] [address] [id number] [place] [address] 1586 Jun, [facility] [place] [facility] [address] [id number] [place] [address] 3260 Jun, [facility] [place] [facility] [address] [id number] [place] [address] 4127 Jun, [facility] [place] [facility] [address] [id number] [place] [address] 4258 Jun, [facility] [place] [facility] [address] [id number] [place] [address]- [address] Jun, [facility] [address] [id number] [place] [address] 1424 Jun, [facility] [place] [facility] [address] [id number] [place] [address] 1775 Jun, [facility] [address] [id number] [place] [address]- 9815 Jun, [facility] [place] [address] [id number] [place] [address]- 2291 Jun, [facility] [address] [id number] [place] [address]- 8356 Jun, [facility] [place] [address] [id number] [place] [address] 8148 May, [facility] [address] [id number] [place] [address] 2096 May, [facility] [address] [id number] [place] [address] 9320 May, [facility] [address] [id number] [place] [address] 0058 May, [facility] [address] [id number] [place] [address]- 0347 May, [facility] [address] [id number] [place] [address] 5936 May, [facility] [address] [id number] [place] [address] 1188 16 May, 2014 [facility] [address] [id number] [place] [address] 3[address] 15 May, 2014 [facility] [address] [id number] [place] [address]- 0208 May, [facility] [address] [id number] 04 May, 2014 [facility] [address] [id number] [place] [address]- 5962 May, [facility] [place] [facility] [address] [id number] [place] [address]- 6442 May, [facility] [place] [facility] [address] [id number] [place] [address]- 7586 May, [facility] [place] [facility] [address] [facility] [id number] [place] [address] 2390 Apr, [facility] [place] [facility] [address] [id number] [place] [address]- 8348 Apr, [facility] [place] [facility] [address] [id number] [place] [address]- 6561 Apr, [facility] [place] [facility] [address] [id number] [place] [address] 9733 Apr, [facility] [place] [facility] [address] [id number] [place] [address]- 2328 Apr, [facility] [place] [facility] [address] [id number], [place] [address] Apr, [facility] [place] [facility] [address] [id number] [place] [address]- 2913 Mar, [facility] [place] [facility] [address] [id number] [place] [address]- 5637 Mar, [facility] [place] [facility] [address] [id number], [place] [address]- 6715 Mar, [facility] [place] [facility] [address] [id number], [place] [address] 2405 Mar, [facility] [place] [facility] [address] [id number], [place] [address]- 2286 Mar, [facility] [place] [facility] [address] [id number], [place] [address] 8[address] Mar, [facility] [place] [facility] [address] [id number], [place] [address] 4[address] Feb, [facility] [place] [facility] [address] [id number] [place] [address]- 8268 24 Feb, 2013 [facility] [place] [facility] [address] [id number] [place] [address]- 6676 Feb, [facility] [place] [facility] [address] [id number] [place] [address] 2546 Feb, [facility] [place] [facility] [address] [id number] [place] [address] 2545 Feb, [facility] [place] [facility] [address] [id number] [place] [address] 2547 Feb, [facility] [place] [facility] [address] [id number] [place] [address]- 0602 Feb, [facility] [place] [facility] [address] [id number] [place] [address]- 1213 Feb, [facility] [place] [address] [id number] [place] [address]- 9215 Feb, [facility] [address] [id number] [place] [address]- 2545 Feb, [facility] [address] [id number] Feb, [facility] [address] [id number] [place] [address]- 4888 Feb, [facility] [place] [facility] [address] [id number] [place] [address]- 5252 Jan, [facility] [place] [facility] [address] [id number] [place] [address]- 254 Jan, [facility] [place] [facility] [address] [id number] [place] [address]- 0579 Dec, [facility] [place] [facility] [address] [id number] [place] [address]- 2910 Dec, [facility] [place] [facility] [address] [id number] [place] [address]- 2729 Dec, [facility] [place] [facility] [address] [id number] [place] [address]- 1025 Dec, 2013 [facility] [place] [facility] [address] [id number] [place] [address]- 4119 Dec, 2013 [facility] [place] [facility] [address] [id number] [place] [address]- 7426 Dec, 2013 [facility] [place] [facility] [address] [id number] [place] [address]- 5864 Dec, 2013 [facility] [place] [facility] [address] [id number] [place] [address]- 7258 Dec, 2013 [facility] [place] [facility] [address] [id number] [place] [address]- 2602 Dec, [facility] [place] [facility] [address] [id number] [place] [address]- 9788 Dec, [facility] [place] [facility] [address] [id number] [place] [address]- 4916 Nov, [facility] [place] [facility] [address] [id number] [place] [address]- 0546 Nov, [facility] [place] [facility] [address] [id number] [place] [address]- 4655 Nov, [facility] [place] [facility] [address] [id number] [place] [address]- 9746 Nov, [facility] [place] [facility] [address] [id number] [place] [address]- 5879 Nov, [facility] [place] [facility] [address] [id number] [place] [address]- 5227 Nov, [facility] [place] [facility] [address] [id number] [place] [address]- 2756 Nov, [facility] [place] [facility] [address] [id number] [place] [address]- 8268 Nov, [facility] [place] [facility] [address] [id number] [place] [address]- 3534 Nov, [facility] [place] [facility] [address] [id number] [place] [address]- 3951 Nov, [facility] [place] [facility] [address] [id number] [place] [address]- 4678 Nov, [facility] [place] [facility] [address] [id number] [place] [address]- 2234 Nov, [facility] [place] [facility] [address] [id number] [place] [address]- 6940 Nov, [facility] [place] [facility] [address] [id number] [place] [address]- 8164 Nov, [facility] [place] [facility] [address] [id number] [place] [address]- 6323 October, [facility] [place] [facility] [address] [id number] [place] [address]- 3620 October, [facility] [place] [facility] [address] [id number] [place] [address]- 2575 October, [facility] [place] [facility] [address] [id number] [place] [address]- 9419 October, [facility] [place] [facility] [address] [id number] [place] [address]- 2647 October, [facility] [place] [facility] [address] [id number] [place] [address]- 3195 October, [facility] [place] [facility] [address] [id number] [place] [address]- 5756 October, [facility] [place] [facility] [address] [id number] [place] [address]- 9224 October, [facility] [place] [facility] [address] [id number] [place] [address]- 8461 October, [facility] [place] [facility] [address] [id number] [place] [address]- 0146 October, [facility] [place] [facility] [address] [id number] [place] [address]- 2159 Sep, [facility] [place] [facility] [address] [id number] [place] [address]- 2461 29 Sep, 2013 [facility] [place] [facility] [address] [id number] [place] [address]- 8973 Sep, [facility] [place] [facility] [address] [id number] [place] [address]- 5296 Sep, [facility] [place] [facility] [address] [id number] [place] [address]- 4827 Sep, [facility] [place] [facility] [address] [id number] [place] [address]- 7360 Sep, [facility] [place] [facility] [address] [id number] [place] [address]- 9717 Sep, [facility] [place] [facility] [address] [id number] [place] [address]- 8269 Sep, [facility] [place] [facility] [address] [id number] [place] [address]- 7946 Sep, [facility] [place] [facility] [address] [id number] [place] [address]- 6124 Sep, [facility] [place] [facility] [address] [id number] [place] [address]- 1758 Aug, [facility] [place] [facility] [address] [id number] [place] [address]- 5820 Aug, [facility] [place] [facility] [address] [id number] [place] [address]- 4569 Aug, [facility] [place] [facility] [address] [id number] [place] [address]- 6224 Aug, [facility] [place] [facility] [address] [id number] [place] [address]- 9209 Aug, [facility] [place] [facility] [address] [id number] [place] [address]6 Aug, [facility] [place] [facility] [address] [id number] [place] [address]- 1178 Aug, [facility] [place] [facility] [address] [id number] [place] [address]- 0730 Aug, [facility] [place] [facility] [address] [id number] [place] [address]- 4070 Aug, [facility] [place] [facility] [address] [id number] [place] [address]- 1832 Jul, [facility] [place] [facility] [address] [id number] [place] [address]- 5339 Jul, [facility] [place] [facility] [address] [id number] [place] [address]- 2636 Jul, [facility] [place] [facility] [address] [id number] [place] [address]- 8490 Jul, [facility] [place] [facility] [address] [id number] [place] [address]- 5774 Jul, [facility] [place] [facility] [address] [id number] [place] [address]- 5130 Jul, [facility] [place] [facility] [address] [id number] [place] [address]- 2455 Jul, [facility] [place] [facility] [address] [id number] [place] [address]- 2251 Jul, [facility] [place] [facility] [address] [id number] [place] [address]- 2549 Jul, [facility] [place] [facility] [address] [id number] [place] [address]- 8402 Jul, [facility] [place] [facility] [address] [id number] [place] [address]- 6753 Jul, [facility] [place] [facility] [address] [id number] [place] [address]- 9766 Jul, [facility] [place] [facility] [address] [id number] [place] [address]- 8356 04 Jul, 2013 [facility] [place] [facility] [address] [id number] [place] [address]- 9216 Jul, [facility] [place] [facility] [address] [id number] [place] [address]- 9556 Jul, [facility] [place] [facility] [address] [id number] [place] [address]- 7506 Jul, [facility] [place] [facility] [address] [id number] [place] [address]- 1436 Jun, [facility] [place] [facility] [address] [id number] [place] [address]- 2430 Jun, [facility] [place] [facility] [address] [id number] [place] [address]- 0980 Jun, [facility] [place] [facility] [address] [id number] [place] [address]- 4937 Jun, [facility] [place] [facility] [address] [id number] [place] [address]- 5774 Jun, [facility] [place] [facility] [address] [id number] [place] [address]- 1034 Jun, [facility] [place] [facility] [address] [id number] [place] [address]- 5234 May, [facility] [place] [facility] [address] [id number] [place] [address]- 6862 May, [facility] [place] [facility] [address] [id number] [place] [address]- 4190 May, [facility] [place] [facility] [address] [id number] [place] [address]- 9026 May, [facility] [place] [facility] [address] [id number] [place] [address]- 3596 Apr, [facility] [place] [facility] [address] [id number] [place] [address]- 5896 Apr, [facility] [place] [facility] [address] [id number] [place] [address]- 1925 Apr, [facility] [place] [facility] [address] [id number] [place] [address]- 2375 Apr, [facility] [place] [facility] [address] [id number] [place] [address]- 1138 Apr, [facility] [place] [facility] [address] [id number] [place] [address]- 7446 Apr, [facility] [place] [facility] [address] [id number] [place] [address]- 4043 Apr, [facility] [place] [facility] [address] [id number] [place] [address]- 5484 Apr, [facility] [place] [facility] [address] [id number] [place] [address]- 4730 Apr, [facility] [place] [facility] [address] [id number], [place] [address]- 7545 Apr, [facility] [place] [facility] [address] [id number] [place] [address]- 7714 Apr, [facility] [place] [facility] [address] [id number], [place] [address]- 1373 Apr, [facility] [place] [facility] [address] [id number], [place] [address]- 5064 Mar, [facility] [place] [facility] [address] [id number], [place] [address]- 7519 28 Mar, 2013 [facility] [place] [facility] [address] [id number], [place] [address]- 3855 16 Mar, 2013 [facility] [place] [facility] [address] [id number], [place] [address]- 4678 16 Mar, 2013 [facility] [place] [facility] [address] [id number], [place] [address]- 3316 15 Mar, 2013 [facility] [place] [facility] [address] [id number] [place] [address]- 8945 15 Mar, 2013 [facility] [address] [id number] [place] [address]- 2553 27 Feb, 2012 [facility] [place] [facility] [address] [id number] [place] [address] 2546 25 Feb, 2012 [facility] [place] [facility] [address] [id number] [place] [address] 2546 25 Feb, 2012 [facility] [place] [facility] [address] [id number] [place] [address] 2540 23 Feb, 2012 [facility] [place] [facility] [address] [id number] [place] [address]- 5235 17 Feb, 2012 [facility] [place] [facility] [address] [id number] [place] [address]- 8992 10 Feb, 2013 [facility] [address] [id number] [place] [address]- 0506 04 Feb, 2012 [facility] [place] [facility] [address] [id number] [place] [address]- 4586 30 Jan, 2013 [facility] [place] [facility] [address] [id number] [place] [address]- 9020 Jan, [facility] [place] [facility] [address] [id number] [place] [address]- 7518 15 Jan, 2013 [facility] [place] [facility] [address] [id number] [place] [address]- 0672 14 Jan, 2013 [facility] [place] [facility] [address] [id number] [place] [address]- 2549 Jan, [facility] [place] [facility] [address] [id number] [place] [address]- 2407 Jan, [facility] [place] [facility] [address] [id number] [place] [address]- 5225 Jan, [facility] [place] [facility] [address] [id number] [place] [address]- 7253 Dec, [facility] [place] [facility] [address] [id number] [place] [address]- 6780 Dec, [facility] [place] [facility] [address] [id number] [place] [address]- 8909 Dec, [facility] [place] [facility] [address] [id number] [place] [address]- 8605 Dec, [facility] [place] [facility] [address] [id number] [place] [address]- 4208 Dec, [facility] [place] [facility] [address] [id number] [place] [address]- 6923 Dec, [facility] [place] [facility] [address] [id number] [place] [address]- 7933 Nov, [facility] [place] [address] [id number] [place] [address]- 0553 Nov, [facility] [place] [facility] [address] [id number] [place] [address]- 6549 Nov, [facility] [place] [facility] [address] [id number] [place] [address]- 1703 Nov, [facility] [place] [facility] [address] [id number] [place] [address]- 6874 October, [facility] [place] [facility] [address] [id number] [place] [address]- 0397 October, [facility] [place] [facility] [address] [id number] [place] [address]- 7710 October, [facility] [place] [facility] [address] [id number] [place] [address]- 7730 October, [facility] [place] [facility] [address] [id number] [place] [address]- 6013 Sep, [facility] [place] [facility] [address] [id number] [place] [address]- 5689 Sep, [facility] [place] [facility] [address] [id number], [place] [address]- 0306 16 Sep, 2012 [facility] [address] [id number] [place] [address]- 4741 Sep, [facility] [address] [id number] [place] [address]- 2118 Sep, [facility] [place] [facility] [address] [facility] [id number] [place] [address]- 9297 Sep, [facility] [place] [facility] [address] [id number] [place] [address]- 0829 Sep, [facility] [address] [id number] [place] [address]- 6133 Sep, [facility] [place] [address] [facility] [id number] [place] [address]- 6932 Aug, [facility] [address] [facility] [id number] [place] [address]- 5083 Aug, [facility] [place] [facility] [address] [id number], [place] [address]- 8809 Aug, [facility] [place] [facility] [address] [id number] [place] [address]- 7333 18 Jul, 2012 [facility] [place] [facility] [address] [facility] [id number], [place] [address]- 1316 08 Jul, 2012 [facility] [place] [facility] [address] [id number], [place] [address]- 3876 07 Jul, 2012 [facility] [place] [facility] [address] [id number], [place] [address] 06 Jul, 2012 [facility] [place] [facility] [address] [id number] [place] [address] 05 Jul, 2012 [facility] [place] [facility] [address] [id number], [place] [address] Jun, [facility] [place] [facility] [address] [facility] [id number] [place] [address] Jun, [facility] [place] [facility] [address] [id number] [place] [address] Jun, [facility] [place] [facility] [address] [id number] [place] [address]- [address] May, [facility] [place] [facility] [address] [id number] [place] [address] 80[address] May, [facility] [place] [facility] [address] [id number] [place] [address]696 May, [facility] [place] [facility] [address] [id number] [place] [address] 47[address] May, [facility] [place] [facility] [address] [id number] [place] [address]- 2429 May, [facility] [place] [facility] [address] [id number] [place] [address] 3566 May, [facility] [place] [facility] [address] [id number] [place] [address] May, [facility] [place] [facility] [address] [id number] [place] [address] 53[address] Apr, [facility] [place] [facility] [address] [id number] [place] [address]- [address]65 Apr, [facility] [place] [facility] [address] [id number] [place] [address]- 67[address] Apr, [facility] [place] [facility] [address] [id number] [place] [address]- [address]88 27 Apr, 2012 [facility] [place] [facility] [address] [id number] [place] [address] 2542 Apr, [facility] [place] [facility] [address] [id number] [place] [address]- 3556 Apr, [facility] [place] [facility] [address] [id number] [place] [address]- 3556 13 Apr, 2012 [facility] [place] [facility] [address] [id number] [place] [address] Apr, [facility] [place] [facility] [address] [id number] [place] [address]- 8798 Apr, [facility] [place] [facility] [address] [id number] [place] [address]- 2479 Apr, [facility] [place] [facility] [address] [id number] [place] [address]- 0279 Apr, [facility] [place] [facility] [address] [id number] [place] [address]- 0176 Mar, [facility] [place] [facility] [address] [id number] [place] [address]- 6983 Mar, [facility] [place] [facility] [address] [id number] [place] [address]- 3182 Mar, [facility] [place] [facility] [address] [id number] [place] [address] 3120 Mar, [facility] [place] [facility] [address] [id number], [place] [address] Mar, [facility] [place] [facility] [address] [id number], [place] [address] Mar, [facility] [place] [facility] [address] [id number], [place] [address] Mar, [facility] [place] [facility] [address] [id number], [place] [address]75 Mar, [facility] [place] [facility] [address] [id number], [place] [address]36 Mar, [facility] [place] [facility] [address] [id number], [place] [address] Mar, [facility] [place] [facility] [address] [facility] [id number], [place] [address] Mar, [facility] [place] [facility] [address] [id number], [place] [address] Feb, [facility] [place] [facility] [address] [id number] [place] [address]236 27 Sep, 2011 [facility] [place] [facility] [address] [id number] [place] [address] 2546 27 Sep, 2011 [facility] [place] [facility] [address] [id number] [place] [address] 2546 26 Feb, 2011 [facility] [place] [facility] [address] [id number] [place] [address] 2546 24 Feb, 2011 [facility] [place] [facility] [address] [id number] [place] [address] 2546 19 Feb, 2011 [facility] [place] [facility] [address] [id number] [place] [address]- 6286 18 Feb, 2011 [facility] [place] [facility] [address] [id number] [place] [address] 2546 18 Feb, 2011 [facility] [place] [facility] [address] [id number] [place] [address]- 7274 18 Feb, 2011 [facility] [place] [facility] [address] [id number] [place] [address] 3847 Jan, [facility] [place] [facility] [address] [id number] [place] [address]- 3376 Jan, [facility] [place] [facility] [address] [id number] [place] [address] 254 Jan, [facility] [place] [facility] [address] [id number] [place] [address] 2546 Jan, [facility] [place] [facility] [address] [id number] [place] [address] 2548 Dec, [facility] [place] [facility] [address] [id number] [place] [address]- [address]646 Dec, [facility] [place] [facility] [address] [id number] [place] [address]- 2546 Dec, [facility] [place] [facility] [address] [id number] [place] [address]- 7663 Dec, [facility] [place] [facility] [address] [id number] [place] [address]- 1697 Dec, [facility] [place] [facility] [address] [id number] [place] [address] 1882 Dec, [facility] [place] [facility] [address] [id number] [place] [address]- 6807 Dec, [facility] [place] [facility] [address] [id number] [place] [address]- 8545 Dec, [facility] [place] [facility] [address] [id number] [place] [address]- 0749 Dec, [facility] [place] [facility] [address] [id number] [place] [address]- 3228 Dec, [facility] [place] [facility] [address] [id number] [place] [address]- 6260 Dec, [facility] [place] [facility] [address] [id number] [place] [address]- 0935 Dec, [facility] [place] [facility] [address] [id number] [place] [address]- 9697 Dec, [facility] [place] [facility] [address] [id number] [place] [address]- 8099 Dec, [facility] [place] [facility] [address] [id number] [place] [address]- 5420 Nov, [facility] [place] [facility] [address] [id number] [place] [address]- 1107 Nov, [facility] [place] [facility] [address] [id number] [place] [address]- 4779 Nov, [facility] [place] [facility] [address] [id number] [place] [address]- 7906 Nov, [facility] [place] [facility] [address] [id number] [place] [address]- 9376 Nov, [facility] [place] [facility] [address] [id number] [place] [address]- 2546 Nov, [facility] [address] [id number] [place] [address]- 1074 October, [facility] [place] [facility] [address] [id number] [place] [address]- 2266 October, [facility] [place] [facility] [address] [id number] [place] [address]- 7076 October, [facility] [place] [facility] [address] [id number] [place] [address]- 2895 October, [facility] [place] [facility] [address] [id number] [place] [address]- 3334 Sep, [facility] [place] [facility] [address] [id number] [place] [address]- 8447 17 Sep, 2011 [facility] [place] [facility] [address] [id number] [place] [address]- 3344 Sep, [facility] [place] [facility] [address] [id number] [place] [address]- 0427 Sep, [facility] [place] [facility] [address] [id number] [place] [address]- 4648 Sep, [facility] [place] [facility] [address] [id number] [place] [address]- 4853 Aug, [facility] [place] [facility] [address] [id number] [place] [address]- 1139 Aug, [facility] [facility] [address] [id number] [place] [address] Aug, [facility] [place] [facility] [address] [id number] [place] [address] 20 Aug, 2011 [facility] [place] [facility] [address] [id number] [place] [address] 13 Aug, 2011 [facility] [place] [facility] [address] [id number] [place] [address] Aug, [facility] [place] [facility] [address] [id number] [place] [address] Aug, [facility] [address] [id number] [place] [address] Jul, [facility] [address] [facility] [id number] [place] [address] 16 Jul, 2011 [facility] [address] [facility] [id number] [place] [address] Jul, [facility] [address] [facility] [id number] [place] [address] Jul, [facility] [address] [facility] [id number] [place] [address] Jun, [facility] [address] [place] [id number] Jun, [facility] [id number] [place] [address] Jun, [facility] [address] [facility] [id number], [place] [address] Jun, [facility] [address] [id number] [place] [address] Jun, [facility] [address] [id number] [address] Jun, [facility] [address] [id number] [place] [address] Jun, [facility] [address] [facility] [id number], [place] [address] Jun, [facility] [address] [facility] [id number] [place] [address] May, [facility] [address] [facility] [id number] [place] [address] May, [facility] [address] [facility] [id number], [place] [address] May, [facility] [place] [facility] [address] [id number] [place] [address] May, [facility] [place] [facility] [address] [id number] [place] [address] May, [facility] [place] [facility] [address] [id number] [place] [address] May, [facility] [place] [facility] [address] [id number] [place] [address] May, [facility] [place] [facility] [address] [id number] [place] [address]- [address] Apr, [facility] [place] [facility] [address] [id number] [place] [address] Apr, [facility] [place] [facility] [address] [id number] [place] [address] Apr, [facility] [place] [facility] [address] [id number] [place] [address] Mar, [facility] [place] [facility] [address] [id number] [place] [address] Mar, [facility] [place] [facility] [address] [id number] [place] [address] 14 Mar, 2011 [facility] [place] [facility] [address] [id number] [place] [address] Mar, [facility] [place] [facility] [address] [id number] [place] [address] Mar, [facility] [place] [facility] [address] [id number] [place] [address] Mar, [facility] [place] [facility] [address] [id number] [place] [address] Mar, [facility] [place] [facility] [address] [id number] [place] [address] Jan, [facility] [place] [facility] [address] [id number] [place] [address] 27 May, 2010 [facility] [place] [facility] [address] [id number] [place] [address]46 21 May, 2010 [facility] [place] [facility] [address] [id number] [place] [address] 2546 May, [facility] [place] [facility] [address] [id number] [place] [address]46 13 May, 2010 [facility] [place] [facility] [address] [id number] [place] [address] 2542 10 May, 2010 [facility] [place] [facility] [address] [id number] [place] [address] 2541 06 May, 2010 [facility] [place] [facility] [address] [id number] [place] [address]- [address] 29 Apr, 2010 [facility] [place] [facility] [address] [id number] [place] [address]- [address] 26 Apr, 2010 [facility] [place] [facility] [address] [id number] [place] [address]- 9469 Apr, [facility] [place] [facility] [address] [id number] [place] [address] 18 Apr, 2010 [facility] [place] [facility] [address] [id number] [place] [address]- [address]6 15 Apr, 2010 [facility] [address] [id number], [place] [address] Apr, [facility] [address] [id number], [place] [address] Apr, [facility] [place] [address] [id number] [place] [address] 25[address] Apr, [facility] [place] [facility] [address] [id number] [place] [address]- 254 Apr, [facility] [place] [facility] [address] [id number] [place] [address]- [address] Apr, [facility] [place] [facility] [address] [id number] [address] Mar, [facility] [address] [id number] [id number] Mar, [facility] [address] [id number] Mar, [facility] [address] [id number] [address] Mar, [facility] [address], [place] [address] Mar, [facility] [address], [place] [address] Dec, [facility] [id number], [place] [address] Nov, IMMUNIZATIONS No Known Immunizations SOCIAL HISTORY Never Assessed REASON FOR VISIT Routine Visit PLAN OF CARE Activity Details Follow Up 4 Weeks Reason: VITAL SIGNS MEDICATIONS Medication Instructions Dosage Frequency Start Date End Date Duration Status Phenytoin 50 MG TAKE 1 TABLET BY MOUTH EVERY DAY 30 Active Hydrocortisone 2.5 % Rectal Twice a day 1 application to affected area 12h Active Dilantin 100 mg Orally at bedtime 1 capsule Active Nissa Allergy 180 MG Orally Once a day 1 tablet as needed 24h Active Melatonin 3 MG Orally Once a day 1 tablet at bedtime as needed with food 24h Active Clorazepate Dipotassium 3.75 MG Orally Twice a day 1` tablets 12h 28 Active Topiramate 100 MG TAKE 1 TABLET BY MOUTH TWICE DAILY 30 Not- Taking Topamax 100 MG Orally Twice a day 1 tablet 12h Active Nitroglycerin 0.2 MG/HR APPLY ONE PATCH TRANSDERMALLY DAILY AND REMOVE AT BEDTIME 30 Active Coumadin 1 MG Orally saturday and Saturday 1/ tablet Active Gabapentin 400 MG TAKE 1 CAPSULE BY MOUTH AT BEDTIME 30 Active Sodium Bicarbonate 650 MG Orally Once a day 1 tablet 24h Active Ibuprofen 200 MG Orally every 6 hrs 1 tablet as needed 6h Active Lamotrigine 100 MG TAKE 1 TABLET BY MOUTH TWICE DAILY 30 Not- Taking Bisacodyl 10 MG Rectal Once a day 1 suppository as needed 24h Active Coumadin 1 MG Orally Sat, , , Sat, Saturday 1 tablet Active Restasis 0.05 % 1 DROP EACH EYE TWICE DAILY 30 Active Dilantin Infatabs 50 mg Orally at 1900 1 tablets Active GlycoLax - Active Atorvastatin Calcium 40 MG TAKE 1 TABLET BY MOUTH AT BEDTIME 30 Active Folic Acid 1 MG Orally Once a day 1 tablet 24h Active Nitro-Dur 0.1 MG/HR Transdermal Once a day 1 patch to skin remove after 12 hours 24h Active Fioricet 50-300-40 MG Orally every 4 hrs 1 capsule as needed 4h Active Vitamin D (Ergocalciferol) 86730 UNIT TAKE 1 CAPSULE BY MOUTH EVERY 7 DAYS 28 Not-Taking Fentanyl 75 MCG/HR Transdermal every 72 hours 1 patch to skin Sep, 30 days Active Lamictal 100 MG Orally Twice a day 2 tablets 12h Active Duloxetine HCl 30 MG TAKE 1 CAPSULE BY MOUTH EVERY DAY 30 Active Metoprolol Tartrate 25 MG Orally Twice a day 1 tablet with food 12h Active RESULTS No Results PROCEDURES Procedure Date Ordered Result Body Site Minor complication (15 mins) October 22, 2016 INSTRUCTIONS MEDICATIONS ADMINISTERED No Known Medications MEDICAL [...] – [place] [facility]2016 Hospitalization History [facility] 08/2017 Hospitalization History [facility] 01/2018
--- OUTSIDE RECORDS SUMMARY | 2018-07-05 15:04 | XMS REPORT ---
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 Name Role Phone OMKAR SERRANO Unavailable PROBLEMS Type Condition ICD9-CM Code EUI81-BF Code Onset Dates Condition Status SNOMED Code Problem Anemia, unspecified type D64.9 Active 020978392 Problem Personality disorder F60.9 Active 68123796 Problem Factitious disorder imposed on self, recurrent episode F68.10 Active 71791328 Problem Ventral hernia without obstruction or gangrene K43.9 Active 408574660 Problem Allergic state, subsequent encounter T78.40XD Active 778243033 Problem Anxiety F41.9 Active 02846825 Problem Age-related osteoporosis without current pathological fracture M81.0 Active 16320460 Problem Unspecified psychosis not due to a substance or known physiological condition F29 Active 06313346 Problem Iron deficiency anemia, unspecified iron deficiency anemia type D50.9 Active 59952506 Problem History of CVA with residual deficit I69.30 Active 579220907 Problem Seizure disorder G40.909 Active 249830242 Problem Perennial allergic rhinitis, unspecified allergic rhinitis trigger J30.89 Active 246977893 Problem Chronic kidney disease, unspecified stage N18.9 Active 371104511 Problem Back pain M54.9 Active 556682509 Problem Gastroesophageal reflux disease without esophagitis K21.9 Active 030331646 Problem Insomnia, unspecified type G47.00 Active 114357882 Problem History of colon polyps Z86.010 Active 306882136 ALLERGIES No Information ENCOUNTERS Encounter Location Date Diagnosis [facility] [id number], [place] [address] Mar, [facility] [id number], [place] [address] 8[address] Feb, [facility] [id number] [place] [address] 84793- 7914 05 Feb, 2018 Back pain M54.9 [facility] [id number] [place] [address] 38037- 8171 Jan, Unspecified psychosis not due to a substance or known physiological condition F29 ; Personality disorder F60.9 and Factitious disorder imposed on self, recurrent episode F68.10 [facility] [id number] [place] [address] 62533- 0421 Jan, [facility] [id number] [place] [address] 69763- 1136 Jan, Back pain M54.9 and Seizure disorder G40.909 [facility] [id number] [place] [address] 93840- 3249 Jan, Back pain M54.9 [facility] [id number] [place] [address] 83881- 6058 17 Jan, 2018 Back pain M54.9 [facility] [id number] [place] [address] 27373- 9743 Jan, [facility] [id number] [place] [address] 76560- 1979 Jan, Unspecified psychosis not due to a substance or known physiological condition F29 ; Personality disorder F60.9 and Factitious disorder imposed on self, recurrent episode F68.10 [facility] [id number] [place] [address] 53853- 4206 Dec, Back pain M54.9 ; Seizure disorder G40.909 ; Ventral hernia without obstruction or gangrene K43.9 and History of CVA with residual deficit I69.30 [facility] [id number] [place] [address] 56834- 6050 Dec, Unspecified psychosis not due to a substance or known physiological condition F29 ; Personality disorder F60.9 and Factitious disorder imposed on self, recurrent episode F68.10 [facility] [address], [place] [address] Dec, [facility] [id number], [place] [address] 6705 Dec, Back pain M54.9 [facility] [address], [place] [address] 9013 Dec, Factitious disorder imposed on self, recurrent episode F68.10 ; Personality disorder F60.9 ; Insomnia, unspecified type G47.00 and Anxiety F41.9 [facility] [address], [place] [address] 6939 Nov, Unspecified psychosis not due to a substance or known physiological condition F29 ; Personality disorder F60.9 and Factitious disorder imposed on self, recurrent episode F68.10 [facility] [address], [place] [address]- 2770 Nov, Back pain M54.9 [facility] [id number], [place] [address] 1468 Nov, Unspecified psychosis not due to a substance or known physiological condition F29 ; Personality disorder F60.9 and Factitious disorder imposed on self, recurrent episode F68.10 [place] [address], [place] [address] 1190 October, [facility] [address], [place] [address] 9918 October, [facility] [address], [place] [address]- 5078 October, Unspecified psychosis not due to a substance or known physiological condition F29 ; Personality disorder F60.9 and Factitious disorder imposed on self, recurrent episode F68.10 [facility] [address], [place] [address]- 3598 October, Back pain M54.9 [facility] [address], [place] [address] 8140 October, Seizure disorder G40.909 ; Back pain M54.9 and Allergic state, subsequent encounter T78.40XD [facility] [id number] [place] [address] 28417- 9095 October, [facility] [id number] [place] [address] 25559- 7496 Sep, Back pain M54.9 [facility] [id number] [place] [address] 06463- 6141 Sep, Unspecified psychosis not due to a substance or known physiological condition F29 ; Personality disorder F60.9 and Factitious disorder imposed on self, recurrent episode F68.10 [facility] [id number] [place] [address] 55238- 6533 Sep, [facility] [id number] [place] [address] 23444- 6996 Sep, [facility] [id number] [place] [address] 07152- 8320 Sep, [facility] [id number] [place] [address] 18209- 5117 Sep, [facility] [id number] [place] [address] 99965- 9663 Aug, [facility] [id number] [place] [address] 31054- 0307 Aug, Back pain M54.9 [facility] [id number] [place] [address] 65521- 7945 Aug, Factitious disorder imposed on self, recurrent episode F68.10 ; Personality disorder F60.9 ; Insomnia, unspecified type G47.00 and Anxiety F41.9 [facility] [address], [place] [address]- 7363 Aug, Back pain M54.9 ; Iron deficiency anemia, unspecified iron deficiency anemia type D50.9 ; Chronic kidney disease, unspecified stage N18.9 and Breast cancer screening Z12.31 [facility] [address] [id number] [id number] Jul, Back pain M54.9 [facility] [id number] [id number] Jul, [facility] [id number] [id number] Jul, [facility] [id number] [address] Jun, Back pain M54.9 [facility] [id number] [id number] Jun, [facility] [id number] [address] Jun, Back pain M54.9 [facility] [id number], [place] [address]- 7659 Jun, Back pain M54.9 ; Seizure disorder G40.909 and Age-related osteoporosis without current pathological fracture M81.0 [facility] [id number] [id number] May, [facility] [id number] [address] May, Back pain M54.9 [facility] [id number] [address] 1517 Apr, Back pain M54.9 ; Encounter for immunization Z23 ; Gastroesophageal reflux disease without esophagitis K21.9 ; Age-related osteoporosis without current pathological fracture M81.0 and Chronic pruritus L29.9 [facility] [address] [place] [address] 30574795- 2289 16 Apr, 2017 History of CVA with residual deficit I69.30 [facility] [id number] [address] 1662 Apr, Factitious disorder imposed on self, recurrent episode F68.10 and Personality disorder F60.9 [facility] [id number] [place] [address] [id number] Apr, Back pain M54.9 [facility] [address] [place] [address] Mar, Factitious disorder imposed on self, recurrent episode F68.10 [facility] [address] [place] [address] 20650- 0598 Mar, [facility] [id number] [place] [address] [id number] Mar, [facility] [id number] [place] [address] [id number] Mar, Back pain M54.9 [facility] [id number] [place] [address] 37274- 3551 05 Mar, 2017 Back pain M54.9 ; Seizure disorder G40.909 and Age-related osteoporosis without current pathological fracture M81.0 [facility] [address] [place] [address] 41150- 9878 Feb, History of CVA with residual deficit I69.30 [facility] [address] [place] [address] 69002- 0460 Feb, Factitious disorder imposed on self, recurrent episode F68.10 and Personality disorder F60.9 [facility] [address] [place] [address] 24641- 9822 15 Feb, 2017 Back pain M54.9 [facility] [address] [place] [address] 81024- 8955 Feb, [facility] [facility] [id number] [place] [address] 67474- 0678 Jan, [facility] [address] [place] [address] Jan, Age- related osteoporosis without current pathological fracture M81.0 and Allergic state, subsequent encounter T78.40XD [facility] [id number], [place] [address]- 6374 Jan, Factitious disorder imposed on self, recurrent episode F68.10 and Personality disorder F60.9 [facility] [address], [place] [address]- 9492 Dec, Back pain M54.9 [facility] [address], [place] [address]- 8178 Dec, Personality disorder F60.9 and Factitious disorder imposed on self, recurrent episode F68.10 [facility] [id number] [address] Dec, Back pain M54.9 [facility] [id number] [place] [address] [id number] Dec, [facility] [id number] [place] [address] [id number] Dec, [facility] [address], [place] [address]- 7656 Dec, [facility] [address] [place] [address] 62066- 2223 Nov, [facility] [address], [place] [address]- 2046 Nov, Back pain M54.9 ; Anemia, unspecified type D64.9 and History of colon polyps Z86.010 [facility] [address], [place] [address]- 8306 Nov, Back pain M54.9 [facility] [id number] [id number] October, Back pain M54.9 [facility] [address] [id number] October, Back pain M54.9 and Gastroesophageal reflux disease without esophagitis K21.9 [facility] [id number] [address] Sep, [facility] [address], [place] [address]- 8615 Sep, [facility] [id number] [place] [address] 76222- 7725 Sep, [facility] [address] [place] [address] 92424- 7562 Sep, [facility] [address] [place] [address] 37724- 2872 Sep, [facility] [address] [place] [address] 61200- 7376 Sep, Seizure disorder G40.909 [facility] [address] [place] [address] 51665- 3952 Sep, Back pain M54.9 [facility] [address] [place] [address] 39156- 0035 Sep, [facility] [address], [place] [address]- 5905 Aug, Back pain M54.9 [facility] [address] [place] [address] [id number]- 6534 Aug, Seizure disorder G40.909 [facility] [id number] [address] Aug, [facility] [id number] [place] [address] [id number] 16 Aug, 2016 Back pain M54.9 [facility] [id number] [place] [address] [id number] Aug, Back pain M54.9 [facility] [id number] [place] [address] [id number] Aug, Back pain M54.9 [facility] [address] [id number] Jul, Weakness R53.1 [facility] [address] [place] [address] 80178- 8204 Jul, Seizure disorder G40.909 [facility] [address] [place] [address] 24149- 9631 Jul, [facility] [id number] [place] [address] 54122- 9063 Jul, Breast cancer screening Z12.39 [facility] [id number] [place] [address] 32336- 2405 Jul, [facility] [id number] [place] [address] 01665- 9218 Jul, [facility] [id number] [place] [address] 35223- 8649 Jul, [facility] [id number] [place] [address] 00552- 5494 Jul, Seizure disorder G40.909 ; Fatigue, unspecified type R53.83 ; Perennial allergic rhinitis, unspecified allergic rhinitis trigger J30.89 and Chronic kidney disease, unspecified stage N18.9 [facility] [id number] [place] [address] 76554- 4105 Jul, [facility] [address] [place] [address] 82449- 7444 Jul, Seizure disorder G40.909 [facility] [address] [place] [address] 61348- 4049 Jun, [facility] [address] [place] [address] 34636- 8167 Jun, [facility] [address] [id number] Jun, Perennial allergic rhinitis, unspecified allergic rhinitis trigger J30.89 [facility] [id number] [place] [address] [id number] Jun, [facility] [address] [place] [address] 73727- 0596 Jun, Seizure disorder G40.909 [facility] [id number] [id number] Jun, [facility] [id number] [place] [address] [id number] May, [facility] [address] [place] [address] 91314- 2815 May, [facility] [address] [place] [address] 70592- 1910 May, [facility] [address] [place] [address] 24428- 8987 May, [facility] [address] [place] [address] 53769- 8866 May, History of CVA with residual deficit I69.30 [facility] [address] [place] [address] 86437- 5231 May, [facility] [address] [place] [address] 71699- 0767 May, [facility] [address] [place] [address] 25789- 2391 May, [facility] [address] [place] [address] 07273- 5131 May, Seizure disorder G40.909 [facility] [address] [place] [address] 16857- 9158 May, [facility] [address] [place] [address] May, Back pain M54.9 and Seizure disorder G40.909 [facility] [address] [place] [address] 02738- 3701 Apr, [facility] [address] [place] [address] 69104- 2614 Apr, Back pain M54.9 [facility] [address], [place] [address]- 6298 Mar, [facility] [address] [place] [address] Mar, Insomnia, unspecified type G47.00 [facility] [address] [facility] [id number], [place] [address]- 3452 Mar, [facility] [address] [facility] [id number], [place] [address]- 4873 Feb, [facility] [address] [facility] [id number], [place] [address]- 9949 Feb, [facility] [address] [facility] [id number], [place] [address]- 9700 Feb, [facility] [address] [facility] [id number], [place] [address]- 5205 Jan, [facility] [address] [facility] [id number], [place] [address]- 7995 Jan, [facility] [address] [place] [address] Jan, Seizure disorder G40.909 and Back pain M54.9 [facility] [id number], [place] [address]- 4765 Dec, [facility] [address] [facility] [id number], [place] [address]- 1867 Dec, [facility] [address] [facility] [id number], [place] [address]- 5640 Dec, [facility] [address] [facility] [id number], [place] [address]- 3883 Nov, [facility] [address] [facility] [id number], [place] [address]- 9495 Nov, [facility] [address] [facility] [id number], [place] [address]- 4920 Nov, Back pain M54.9 [facility] [id number] [place] [address] 05556- 7778 October, [facility] [id number] [place] [address] 18626- 2057 October, Back pain M54.9 [facility] [id number] [place] [address] 41109- 7498 October, Seizure disorder G40.909 and B12 deficiency E53.8 [facility] [id number] [place] [address] 43694- 9603 Sep, History of CVA with residual deficit I69.30 [facility] [address] 23285- 2173 Sep, [facility] [address] 12038- 5753 Sep, [facility] [address] 88570- 2521 Sep, Back pain M54.9 [facility] [id number] [place] [address] 67948- 0096 Sep, Seizure disorder G40.909 [facility] [id number] [place] [address] 72742- 2602 Aug, Back pain M54.9 [facility] [id number] [place] [address] 06104- 4108 18 Aug, 2015 Seizure disorder G40.909 [facility] [id number] [place] [address] 27895- 2888 16 Aug, 2015 Back pain M54.9 [facility] [id number] [place] [address] 82105- 7992 14 Aug, 2015 Heart failure, unspecified I50.9 [facility] [id number] [place] [address] 33941- 6698 14 Aug, 2015 Medication monitoring encounter Z51.81 [facility] [id number] [place] [address] 22223- 5779 Jul, [facility] [id number] [place] [address] 29042- 4819 Jul, Seizure disorder G40.909 [facility] [id number] [place] [address] 30568- 5831 Jul, Back pain M54.9 [facility] [id number] [place] [address] 28264- 1420 Jun, [facility] [id number] [place] [address] 84753- 8434 Jun, [facility] [id number] [place] [address] 43120- 0243 Jun, Mental status change R41.82 ; History of CVA with residual deficit I69.30 ; Back pain M54.9 and Seizure disorder G40.909 [facility] [id number] [place] [address] 07638- 1526 Jun, [facility] [id number] [place] [address] 45587- 5508 May, [facility] [id number] [place] [address] 39429- 8617 Apr, [facility] [id number] [place] [address] 83612- 3588 Apr, Medication monitoring encounter Z51.81 [facility] [id number] [place] [address] 23420- 1840 Mar, Vomiting R11.10 [facility] [id number] [place] [address] 39396- 3613 Mar, [facility] [id number] [place] [address] 002578- 6250 18 Feb, 2015 [facility] [address] [place] [address] 39920- 6047 10 Feb, 2015 UTI (urinary tract infection) 599.0 [facility] [place] [facility] [address] [id number] [place] [address]- 7638 Jan, [facility] [place] [facility] [address] [id number] [place] [address]- 4336 Jan, [facility] [place] [facility] [address] [id number] [place] [address]- 0239 Jan, [facility] [place] [facility] [address] [id number] [place] [address]- 8882 Dec, [facility] [place] [facility] [address] [id number] [place] [address]- 8469 Dec, [facility] [place] [facility] [address] [id number] [place] [address]- 7707 Dec, [facility] [place] [facility] [address] [id number] [place] [address]- 6710 Dec, [facility] [place] [facility] [address] [id number] [place] [address] Nov, UNKNOWN Nov, [facility] [place] [facility] [address] [id number] [place] [address] October, [facility] [place] [facility] [address] [facility] [id number] [place] [address] Sep, [facility] [place] [facility] [address] [id number] [place] [address] Sep, [facility] [place] [facility] [address] [id number] [place] [address] Aug, [facility] [place] [facility] [address] [id number] [place] [address] Aug, [facility] [place] [facility] [address] [id number] [place] [address] Jul, [facility] [place] [facility] [address] [id number] [place] [address] Jul, [facility] [place] [facility] [address] [id number] [place] [address] 13 Jul, 2014 [facility] [place] [facility] [address] [id number] [place] [address] Jul, [facility] [place] [facility] [address] [id number] [place] [address] Jul, [facility] [place] [facility] [address] [id number] [place] [address] Jun, [facility] [place] [facility] [address] [id number] [place] [address] Jun, [facility] [facility] [address] [id number] [place] [address] Jun, [facility] [place] [facility] [address] [id number] [place] [address] 7246 Jun, [facility] [place] [facility] [address] [id number] [place] [address] 9152 Jun, [facility] [place] [facility] [address] [id number] [place] [address] 3560 Jun, [facility] [place] [facility] [address] [id number] [place] [address]- 2978 Jun, [facility] [address] [id number] [place] [address] 8653 Jun, [facility] [place] [facility] [address] [id number] [place] [address]- 4137 Jun, [facility] [place] [facility] [address] [id number] [place] [address]- 6582 Jun, [facility] [address] [id number] [place] [address]- 0343 Jun, [facility] [address] [id number] [place] [address]- 3056 Jun, [facility] [address] [id number] [place] [address]- 8837 Jun, [facility] [address] [id number] [place] [address]- 7687 Jun, [facility] [address] [id number] [place] [address]- 3120 Jun, [facility] [address] [id number] [place] [address]- 2541 Jun, [facility] [address] [id number] [place] [address]- 4334 Jun, [facility] [address] [id number] [place] [address]- 3946 Jun, [facility] [address] [id number] [place] [address]- 0141 May, [facility] [address] [id number] [place] [address]- 1105 May, [facility] [address] [id number] [place] [address]- 6148 May, [facility] [address] [id number] [place] [address]- 5512 May, [facility] [address] [id number] [place] [address]- 6322 May, [facility] [address] [id number], [place] [address]- 8211 May, [facility] [address] [id number], [place] [address]- 4679 May, [facility] [address] [id number] [place] [address]- 1545 15 May, 2014 [facility] [address] [id number] [place] [address]- 1248 May, [facility] [address] [id number] May, [facility] [address] [id number], [place] [address]- 8890 May, [facility] [address] [id number] [place] [address] May, [facility] [address] [id number] [place] [address]- 0525 May, [facility] [address] [id number] [place] [address]- 0930 Apr, [facility] [address] [id number] [place] [address] Apr, [facility] [address] [id number] [place] [address] Apr, [facility] [address] [id number] [place] [address]- 3772 Apr, [facility] [address] [id number] [place] [address]- 7015 Apr, [facility] [address] [id number] [place] [address]- 0931 Apr, [facility] [address] [id number] [place] [address]- 7677 Mar, [facility] [address] [id number] [place] [address]- 9699 Mar, [facility] [address] [id number], [place] [address]- 3145 Mar, [facility] [address] [id number], [place] [address]- 6901 Mar, [facility] [address] [id number] [place] [address]- 0530 Mar, [facility] [address] [id number][place] [address] Mar, [facility] [address] [id number] [place] [address]- 5951 Feb, [facility] [address] [id number] [place] [address]- 7920 24 Feb, 2013 [facility] [address] [id number] [place] [address]- 9189 23 Feb, 2014 [facility] [address] [id number] [place] [address]- 5542 Feb, 2013 [facility] [address] [id number] [place] [address]- 9152 Feb, 2013 [facility] [address] [id number] [place] [address]- 1849 Feb, 2013 [facility] [address] [id number] [place] [address]- 0602 Feb, [facility] [address] [id number] [place] [address]- 7194 Feb, [facility] [address] [id number] [place] [address]- 5856 Feb, [facility] [address] [id number] [place] [address]- 3110 Feb, [facility] [address] [id number] Feb, [facility] [address] [id number] [place] [address]- 5592 Feb, [facility] [address] [id number] [place] [address]- 6074 Jan, [facility] [address] [id number] [place] [address]- 2549 Jan, [facility] [address] [id number] [place] [address]- 3214 Dec, [facility] [address] [id number] [place] [address]- 4313 Dec, [facility] [address] [id number] [place] [address]- 0013 Dec, [facility] [address] [id number] [place] [address]- 4330 Dec, 2013 [facility] [address] [id number] [place] [address]- 9546 Dec, [facility] [address] [id number] [place] [address]- 3519 Dec, 2013 [facility] [address] [id number] [place] [address]- 0079 Dec, [facility] [address] [id number] [place] [address]- 2867 Dec, 2013 [facility] [address] [id number] [place] [address] 1961 Dec, [facility] [address] [id number] [place] [address]- 7259 Dec, [facility] [address] [id number] [place] [address]- 9811 Nov, [facility] [address] [id number] [place] [address]- 9624 Nov, [facility] [address] [id number] [place] [address]- 6463 Nov, [facility] [address] [id number] [place] [address]- 5579 Nov, [facility] [address] [id number] [place] [address]- 6510 Nov, [facility] [address] [id number] [place] [address]- 2940 Nov, [facility] [address] [id number] [place] [address]- 5380 Nov, [facility] [address] [id number] [place] [address]- 4527 Nov, [facility] [address] [id number] [place] [address]- 4908 Nov, [facility] [address] [id number] [place] [address]- 5564 Nov, [facility] [address] [id number] [place] Nov, [facility] [address] [id number] [place] [address]- 7842 Nov, [facility] [address] [id number] [place] [address]- 0846 Nov, [facility] [address] [id number] [place] [address]- 2540 Nov, [facility] [address] [id number] [place] [address]- 2391 October, [facility] [address] [id number] [place] [address]- 8884 October, [facility] [address] [id number] [place] [address]- 6044 October, [facility] [address] [id number] [place] [address]- 1012 October, [facility] [address] [id number] [place] [address]- 3177 October, [facility] [address] [id number] [place] [address]- 2551 October, [facility] [address] [id number] [place] [address]- 0585 October, [facility] [address] [id number] [place] [address]- 7132 October, [facility] [address] [id number] [place] [address]- 4492 October, [facility] [address] [id number] [place] [address]- 9057 October, [facility] [address] [id number] [place] [address]- 8540 Sep, [facility] [address] [id number] [place] [address]- 8454 Sep, [facility] [address] [id number] [place] [address]- 0516 Sep, [facility] [address] [id number] [place] [address]- 7630 Sep, [facility] [address] [id number] [place] [address]- 2946 Sep, [facility] [address] [id number] [place] [address]- 3723 Sep, [facility] [address] [id number] [place] [address]- 5553 Sep, [facility] [address] [id number] [place] [address]- 9230 Sep, [facility] [address] [id number] [place] [address]- 4873 Sep, [facility] [address] [id number] [place] [address]- 6634 Sep, [facility] [address] [id number] [place] [address]- 9028 Aug, [facility] [address] [id number] [place] [address]- 2008 Aug, [facility] [address] [id number] [place] [address]- 2547 Aug, [facility] [address] [id number] [place] [address]- 2099 Aug, [facility] [address] [id number] [place] [address]- 1001 Aug, [facility] [address] [id number] [place] [address]- 8022 Aug, [facility] [address] [id number] [place] [address]- 9897 Aug, [facility] [address] [id number] [place] [address]- 1426 Aug, [facility] [address] [id number] [place] [address]- 3266 Aug, [facility] [address] [id number] [place] [address]- 0126 Jul, [facility] [address] [id number] [place] [address]- 5266 Jul, [facility] [address] [id number] [place] [address]- 6196 Jul, [facility] [address] [facility] [id number] [place] [address]- 2726 Jul, [facility] [address] [facility] [id number] [place] [address]- 8811 Jul, [facility] [address] [facility] [id number] [place] [address]- 7673 Jul, [facility] [address] [facility] [id number] [place] [address]- 5696 Jul, [facility] [address] [facility] [id number] [place] [address]- 4996 Jul, [facility] [address] [id number] [place] [address]- 4426 Jul, [facility] [place] [address] [id number] [place] [address]- 3816 Jul, [facility] [address] [facility] [id number] [place] [address]- 5426 Jul, [facility] [address] [facility] [id number] [place] [address]- 0596 Jul, [facility] [facility] [address] [id number] [place] [address]- 6239 04 Jul, 2013 [facility] [address] [id number] [place] [address]- 5565 Jul, [facility] [address] [id number] [place] [address]- 4778 Jul, [facility] [facility] [address] [id number] [place] [address]- 4576 Jul, [facility] [address] [id number] [place] [address]- 5604 Jun, [facility] [facility] [address] [id number] [place] [address]- 8953 Jun, [facility] [address] [id number] [place] [address]- 1730 Jun, [facility] [address] [id number] [place] [address]- 5018 Jun, [facility] [address] [id number] [place] [address]- 7943 Jun, [facility] [address] [id number] [place] [address]- 7705 Jun, [facility] [address] [id number] [place] [address]- 5709 May, [facility] [place] [facility] [address] [id number] [place] [address]- 0294 May, [facility] [facility] [address] [id number] [place] [address]- 5428 May, [facility] [address] [id number] [place] [address]- 7841 May, [facility] [address] [id number] [place] [address]- 0580 Apr, [facility] [facility] [address] [id number], [place] [address]- 9129 Apr, [facility] [place] [facility] [address] [id number] [place] [address]- 8061 Apr, [facility] [place] [facility] [address] [id number] [place] [address]- 4736 Apr, [facility] [facility] [address] [id number] [place] [address]- 5569 Apr, [facility] [address] [id number], [place] [address]- 2104 Apr, [facility] [place] [facility] [address] [id number] [place] [address]- 9841 Apr, [facility] [place] [facility] [address] [id number], [place] [address]- 6125 Apr, [facility] [facility] [address] [id number], [place] [address]- 1885 Apr, [facility] [place] [facility] [address] [id number], [place] [address]- 9250 Apr, [facility] [place] [facility] [address] [id number], [place] [address]- 1352 Apr, [facility] [place] [facility] [address] [id number], [place] [address]- 7994 Apr, [facility] [place] [facility] [address] [id number], [place] [address]- 5410 28 Mar, 2013 [facility] [place] [facility] [address] [id number], [place] [address]- 1294 28 Mar, 2013 [facility] [place] [facility] [address] [id number], [place] [address]- 5679 16 Mar, 2013 [facility] [place] [facility] [address] [id number], [place] [address]- 3111 16 Mar, 2013 [facility] [place] [facility] [address] [id number], [place] [address]- 5109 15 Mar, 2013 [facility] [place] [facility] [address] [id number] [place] [address]- 4959 15 Mar, 2013 [facility] [address] [id number] [place] [address]- 0478 27 Feb, 2012 [facility] [place] [facility] [address] [id number] [place] [address] 2546 25 Feb, 2012 [facility] [address] [id number] [place] [address]- 6165 25 Feb, 2012 [facility] [address] [id number] [place] [address] 2543 23 Feb, 2012 [facility] [address] [id number] [place] [address]- 1394 17 Feb, 2013 [facility] [address] [id number] [place] [address]- 0416 10 Feb, 2013 [facility] [address] [id number] [place] [address]- 3476 04 Feb, 2013 [facility] [address] [id number] [place] [address]- 5404 30 Jan, 2013 [facility] [address] [id number] [place] [address]- 7417 Jan, [facility] [address] [id number] [place] [address]- 9326 Jan, [facility] [place] [facility] [address] [id number] [place] [address]- 2545 Jan, [facility] [place] [facility] [address] [id number] [place] [address]- 2547 Jan, [facility] [place] [facility] [address] [id number] [place] [address]- 1517 Jan, [facility] [place] [facility] [address] [id number] [place] [address]- 0970 Jan, [facility] [place] [facility] [address] [id number] [place] [address]- 3203 Dec, [facility] [address] [id number] [place] [address]- 4587 Dec, [facility] [place] [facility] [address] [id number] [place] [address]- 2118 Dec, [facility] [place] [facility] [address] [id number] [place] [address]- 7183 Dec, [facility] [place] [facility] [address] [id number] [place] [address]- 9709 Dec, [facility] [address] [id number] [place] [address]- 5167 Dec, [facility] [place] [facility] [address] [id number] [place] [address]- 8976 Nov, [facility] [place] [facility] [address] [id number] [place] [address]- 3813 Nov, [facility] [place] [facility] [address] [id number] [place] [address]- 1860 Nov, [facility] [place] [facility] [address] [id number] [place] [address]- 4290 Nov, [facility] [place] [facility] [address] [id number] [place] [address]- 6044 October, [facility] [place] [facility] [address] [id number] [place] [address]- 1386 October, [facility] [place] [facility] [address] [id number], [place] [address]- 0009 October, [facility] [place] [facility] [address] [id number] [place] [address]- 3739 October, [facility] [place] [facility] [address] [id number] [place] [address]- 9356 Sep, [facility] [place] [facility] [address] [id number] [place] [address]- 5190 Sep, [facility] [place] [facility] [address] [id number], [place] [address]- 2100 16 Sep, 2012 [facility] [address] [id number] [place] [address]- 1246 Sep, [facility] [place] [facility] [address] [id number] [place] [address]- 6287 Sep, [facility] [address] [id number] [place] [address]- 2482 Sep, [facility] [place] [facility] [address] [id number] [place] [address]- 7788 Sep, [facility] [address] [id number] [place] [address] Sep, [facility] [address] [id number] [place] [address] Aug, [facility] [address] [id number] [address] Aug, [facility] [place] [facility] [address] [facility] [id number] [place] [address] 05 Aug, 2012 [facility] [address] [id number] [address] 18 Jul, 2012 [facility] [address] [facility] [id number] [place] [address] 08 Jul, 2012 [facility] [address] [id number] [address] 07 Jul, 2012 [facility] [place] [facility] [address] [facility] [id number], [place] [address] 06 Jul, 2012 [facility] [place] [facility] [address] [id number] [place] [address] 05 Jul, 2012 [facility] [place] [facility] [address] [id number] [place] [id number] Jun, [facility] [place] [facility] [address] [id number], [place] [address] Jun, [facility] [place] [facility] [address] [id number] [place] [address] Jun, [facility] [place] [facility] [address] [id number] [place] [address] May, [facility] [place] [facility] [address] [id number] [place] [address]97 May, [facility] [place] [facility] [address] [id number] [place] [address]- 68[address] May, [facility] [address] [id number] [place] [address] May, [facility] [place] [facility] [address] [id number] [place] [address]- [address] May, [facility] [address] [id number] [place] [address] May, [facility] [address] [id number] [place] [address]- [address] May, [facility] [place] [facility] [address] [id number] [place] [address]- [address]28 Apr, [facility] [place] [facility] [address] [id number] [place] [address]- 3065 Apr, [facility] [place] [facility] [address] [id number] [place] [address] Apr, [facility] [place] [facility] [address] [id number] [place] [address]- [address]29 Apr, [facility] [place] [facility] [address] [id number] [place] [address]- 32[address] Apr, [facility] [place] [facility] [address] [id number] [place] [address] Apr, [facility] [place] [facility] [address] [id number] [place] [address]- [address] 13 Apr, 2012 [facility] [place] [facility] [address] [id number] [place] [address]- [address] Apr, [facility] [place] [facility] [address] [id number] [place] [address] Apr, [facility] [place] [facility] [address] [id number] [place] [address]- 1536 Apr, [facility] [place] [facility] [address] [id number] [place] [address]- 9325 Apr, [facility] [place] [facility] [address] [id number] [place] [address] Mar, [facility] [place] [facility] [address] [id number] [place] [address] Mar, [facility] [place] [facility] [address] [id number] [place] [address]- [address] Mar, [facility] [place] [facility] [address] [id number] [place] [address]- 6890 Mar, [facility] [place] [facility] [address] [id number] [place] [address]- [address] Mar, [facility] [place] [facility] [address] [id number] [place] [address]- 7747 Mar, [facility] [place] [facility] [address] [id number] [place] [address]- 8089 Mar, [facility] [place] [facility] [address] [id number], [place] [address]- [address] Mar, [facility] [place] [facility] [address] [id number], [place] [address]- [address]85 Mar, [facility] [place] [facility] [address] [id number] [place] [address]- 8891 Mar, [facility] [place] [facility] [address] [id number], [place] [address] Mar, [facility] [place] [facility] [address] [id number] [place] [address] Feb, [facility] [place] [facility] [address] [id number] [place] [address]- [address] 27 Feb, 2011 [facility] [place] [facility] [address] [id number] [place] [address]- 9036 27 Feb, 2011 [facility] [place] [facility] [address] [id number] [place] [address] 2546 26 Feb, 2011 [facility] [address] [id number] [place] [address]- 6[address] 24 Feb, 2011 [facility] [place] [facility] [address] [id number] [place] [address] 2546 19 Feb, 2011 [facility] [address] [id number] [place] [address]- 6730 18 Feb, 2011 [facility] [place] [facility] [address] [id number] [place] [address]- 0098 18 Feb, 2011 [facility] [place] [facility] [address] [id number] [place] [address]- 3173 18 Feb, 2011 [facility] [address] [id number] [place] [address]- [address]207 30 Jan, 2012 [facility] [place] [facility] [address] [id number] [place] [address]- [address]369 Jan, [facility] [address] [id number] [place] [address]- 38[address] Jan, [facility] [place] [facility] [address] [id number] [place] [address] Jan, [facility] [place] [facility] [address] [id number] [place] [address]- 2542 Dec, [facility] [place] [facility] [address] [id number] [place] [address]- 0180 Dec, [facility] [place] [facility] [address] [id number] [place] [address]- 2546 Dec, [facility] [place] [facility] [address] [id number] [place] [address]- 6597 Dec, [facility] [place] [facility] [address] [id number] [place] [address]- 0623 Dec, [facility] [place] [facility] [address] [id number] [place] [address]- [address] Dec, [facility] [place] [facility] [address] [id number] [place] [place] [address] Dec, [facility] [place] [facility] [address] [id number] [place] [address] Dec, [facility] [place] [facility] [address] [id number] [place] [address] Dec, [facility] [place] [facility] [address] [id number] [place] [address] Dec, [facility] [place] [facility] [address] [id number] [place] [address] Dec, [facility] [place] [facility] [address] [id number] [place] [address] Dec, [facility] [place] [facility] [address] [id number] [place] [address] Dec, [facility] [place] [facility] [address] [id number] [place] [address] Dec, [facility] [place] [facility] [address] [id number] [place] [address] Nov, [facility] [place] [facility] [address] [id number] [place] [address]49 Nov, [facility] [place] [facility] [address] [id number] [place] [address] Nov, [facility] [place] [facility] [address] [id number] [place] [address] 3970 Nov, [facility] [place] [facility] [address] [id number] [place] [address] 28[address] Nov, [facility] [place] [facility] [address] [id number], [place] [address] 07 Nov, 2011 [facility] [address] [id number] [place] [address] October, [facility] [address] [id number] [place] [address] October, [facility] [address] [facility] [id number] [place] [address] October, [facility] [address] [id number] [place] [address] 230[address] October, [facility] [address] [id number] [place] [address] Sep, [facility] [address] [id number] [place] [address]16 17 Sep, 2011 [facility] [id number] [place] [address] Sep, [facility] [address] [id number] [place] [address]85 Sep, [facility] [address] [id number] [place] [address] 97[address] 03 Sep, 2011 [facility] [address] [facility] [id number] [place] [address]- [address]483 26 Aug, 2011 [facility] [address] [id number] [place] [address]- [address] 26 Aug, 2011 [facility] [place] [facility] [address] [id number] [place] [address] 7449 Aug, [facility] [place] [facility] [address] [id number] [place] [address] 6865 20 Aug, 2011 [facility] [place] [facility] [address] [facility] [id number] [place] [address] 13 Aug, 2011 [facility] [place] [facility] [address] [facility] [id number] [place] [address]- 1998 02 Aug, 2011 [facility] [place] [facility] [address] [id number] [place] [address]46 Aug, [facility] [address] [id number] [place] [address]776 Jul, [facility] [address] [facility] [id number] [place] [address] Jul, [facility] [address] [id number] [place] [address] 3816 Jul, [facility] [address] [facility] [id number] [place] [address] Jul, [facility] [address] [facility] [id number] [place] [address] Jun, [address] [id number] Jun, [facility] [address] [id number] [place] [address] Jun, [facility] [address] [facility] [id number] [place] [address]35 Jun, [facility] [address] [id number] [place] [address] Jun, [facility] [address] [id number] [place] [address] 75[address] Jun, [facility] [address] [id number] [place] [address] 5986 Jun, [facility] [address] [facility] [id number] [place] [address]- 2546 Jun, [facility] [address] [facility] [id number] [place] [address] 9736 May, [facility] [address] [facility] [id number] [place] [address] 2546 May, [facility] [address] [facility] [id number] [place] [address] May, [facility] [place] [facility] [address] [id number] [place] [address]- 6703 May, [facility] [place] [facility] [address] [id number] [place] [address]- 8509 May, [facility] [place] [facility] [address] [id number] [place] [address]- 9733 May, [facility] [place] [facility] [address] [id number] [place] [address]- 9636 May, [facility] [place] [facility] [address] [id number] [place] [address]- [address] Apr, [facility] [place] [facility] [address] [id number] [place] [address]- 7300 Apr, [facility] [place] [facility] [address] [id number] [place] [address]- 4743 Apr, [facility] [place] [facility] [address] [id number] [place] [address]- 3750 Mar, [facility] [place] [facility] [address] [id number] [place] [address]- 4724 Mar, [facility] [place] [facility] [address] [id number], [place] [address] 14 Mar, 2011 [facility] [place] [facility] [address] [id number], [place] [address]- 9575 Mar, [facility] [place] [facility] [address] [id number], [place] [address]- 4584 Mar, [facility] [place] [facility] [address] [id number] [place] [address]- 9268 Mar, [facility] [place] [facility] [address] [id number], [place] [address]- 7258 Mar, [facility] [place] [facility] [address] [id number], [place] [address]- [address]005 Jan, [facility] [place] [facility] [address] [id number], [place] [address]- 8759 27 May, 2010 [facility] [address] [id number] [place] [address]- 4806 21 May, 2010 [facility] [place] [facility] [address] [id number] [place] [address]- 8806 13 May, 2010 [facility] [place] [facility] [address] [facility] [id number] [place] [address]- 8536 13 May, 2010 [facility] [place] [facility] [address] [id number] [place] [address]- 2236 10 May, 2010 [facility] [place] [facility] [address] [facility] [id number] [place] [address], [place] [address]- 7259 06 May, 2010 [facility] [place] [facility] [address] [id number] [place] [address]- 4211 29 Apr, 2010 [facility] [address] [facility] [id number], [place] [address]- 9948 26 Apr, 2010 [facility] [place] [facility] [address] [facility] [id number] [place] [address]- 0502 Apr, [facility] [place] [facility] [address] [facility] [id number] [place] [address]- 9892 18 Apr, 2010 [facility] [place] [facility] [address] [id number], [place] [address]124 15 Apr, 2010 [facility] [place] [facility] [address] [facility] [id number], [place] [address]- 7494 Apr, [facility] [place] [facility] [address] [facility] [id number], [place] [address]- 2540 Apr, [facility] [place] [facility] [address] [facility] [id number], [place] [address]- 3960 05 Apr, 2010 [facility] [place] [facility] [address] [facility] [id number], [place] [address]- 3790 05 Apr, 2010 [facility] [place] [facility] [address] [facility] [id number], [place] [address]- 2739 Apr, [facility] [place] [facility] [address] [facility] [id number], [place] [address]- 7078 Mar, [facility] [address] [id number], [place] [address] 9928 Mar, [facility] [address] [id number], [place] [address] Mar, [facility] [address] [id number] [address] Mar, [facility] [address] [id number], [place] [address]- 1694 Mar, [facility] [address] [id number], [place] [address]- 4922 Dec, [facility] [address] [facility] [id number], [place] [address]- [address] Nov, IMMUNIZATIONS No Known Immunizations SOCIAL HISTORY Never Assessed REASON FOR VISIT f/u PLAN OF CARE Activity Details Follow Up 2 Weeks Reason: VITAL SIGNS MEDICATIONS Unknown Medications RESULTS No Results PROCEDURES Procedure Date Ordered Result Body Site [facility]IS[facility] ESTAB PT January 13, 2018 Psychotherapy, patient &/family, 45 minutes, established patient January 13, 2018 INSTRUCTIONS MEDICATIONS ADMINISTERED No Known Medications [...] surgery and skin graft, cholecysectomy Hospitalization History [facility] 12/2016 [facility] 08/2017 Hospitalization History [facility] 01/2018
--- OUTSIDE RECORDS SUMMARY | 2018-07-05 15:05 | XMS REPORT ---
Author Author NAHOMY BETH Organization 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 Role Phone NAHOMY BETH Unavailable PROBLEMS Type Condition ICD9-CM Code [id number] Code Onset Dates Condition Status SNOMED Code Problem Anemia, unspecified type D64.9 Active 886937873 Problem Personality disorder F60.9 Active 39588562 Problem Factitious disorder imposed on self, recurrent episode F68.10 Active 72732738 Problem Ventral hernia without obstruction or gangrene K43.9 Active 636104866 Problem Allergic state, subsequent encounter T78.40XD Active 046876954 Problem Anxiety F41.9 Active 42884300 Problem Age-related osteoporosis without current pathological fracture M81.0 Active 64258814 Problem Unspecified psychosis not due to a substance or known physiological condition F29 Active 09093292 Problem Iron deficiency anemia, unspecified iron deficiency anemia type D50.9 Active 93334828 Problem History of CVA with residual deficit I69.30 Active 988935080 Problem Seizure disorder G40.909 Active 802168390 Problem Perennial allergic rhinitis, unspecified allergic rhinitis trigger J30.89 Active 208143673 Problem Chronic kidney disease, unspecified stage N18.9 Active 025241873 Problem Back pain M54.9 Active 069604840 Problem Gastroesophageal reflux disease without esophagitis K21.9 Active 142868114 Problem Insomnia, unspecified type G47.00 Active 084508746 Problem History of colon polyps Z86.010 Active 741690433 ALLERGIES No Information ENCOUNTERS Encounter Location Date Diagnosis [facility] [id number] [address] Mar, [facility] [id number] [address] Feb, [facility] [id number] [place] [address] 12522- 5048 05 Feb, [address] [facility] [id number] [place] [address] 35188- 2634 Jan, Unspecified psychosis not due to a substance or known physiological condition F29 ; Personality disorder F60.9 and Factitious disorder imposed on self, recurrent episode F68.10 [facility] [id number] [place] [address] 85339- 8258 Jan, [place] [id number] [place] [address] 84068- 6094 Jan, Back pain M54.9 and Seizure disorder G40.909 [facility] [id number] [place] [address] 37025- 1280 Jan, Back pain M54.9 [facility] [id number] [place] [address] 80286- 5367 17 Jan, 2018 Back pain M54.9 [place] [id number] [place] [address] 97655- 7047 Jan, [place] [id number] [place] [address] 47751- 6104 Jan, Unspecified psychosis not due to a substance or known physiological condition F29 ; Personality disorder F60.9 and Factitious disorder imposed on self, recurrent episode F68.10 [place] [id number] [place] [address] 28986- 7656 Dec, Back pain M54.9 ; Seizure disorder G40.909 ; Ventral hernia without obstruction or gangrene K43.9 and History of CVA with residual deficit I69.30 [facility] [id number] [place] [address] 94209- 1623 Dec, Unspecified psychosis not due to a substance or known physiological condition F29 ; Personality disorder F60.9 and Factitious disorder imposed on self, recurrent episode F68.10 [place] [id number] [address] 77[address] Dec, [facility] [id number] [place] [address] 99601- 0814 Dec, Back pain M54.9 [facility] [id number] [address]- 5167 Dec, Factitious disorder imposed on self, recurrent episode F68.10 ; Personality disorder F60.9 ; Insomnia, unspecified type G47.[address] [facility] [address] [place] [address] 36543- 7499 Nov, Unspecified psychosis not due to a substance or known physiological condition F29 ; Personality disorder F60.9 and Factitious disorder imposed on self, recurrent episode F68.10 [place] [id number] [address] 1918 Nov, Back pain M54.9 [facility] [address] [place] [address] 81161- 0151 Nov, Unspecified psychosis not due to a substance or known physiological condition F29 ; Personality disorder F60.9 and Factitious disorder imposed on self, recurrent episode F68.10 [facility] [address] [address] 0572 October, [place] [address] [address] October, [facility] [id number] [place] [address] 71541- 1157 October, Unspecified psychosis not due to a substance or known physiological condition F29 ; Personality disorder F60.9 and Factitious disorder imposed on self, recurrent episode F68.10 [facility] [address] [address]- 3339 October, Back pain M54.9 [facility] [address] [address]- 0653 October, Seizure disorder G40.909 ; Back pain M54.9 and Allergic state, subsequent encounter T78.40XD [facility] [id number] [place] [address] 17240- 1829 October, [facility] [id number] [place] [address] 64607- 9309 Sep, Back pain M54.9 [place] [id number] [place] [address] 06695- 4228 Sep, Unspecified psychosis not due to a substance or known physiological condition F29 ; Personality disorder F60.9 and Factitious disorder imposed on self, recurrent episode F68.10 [place] [id number] [place] [address] 71151- 1800 Sep, [place] [id number] [place] [address] 99671- 2104 Sep, [place] [id number] [place] [address] 58219- 9328 Sep, [place] [id number] [place] [address] 29925- 9066 Sep, [place] [id number] [place] [address] 30294- 7963 Aug, [place] [id number] [place] [address] 92171- 4875 Aug, Back pain M54.9 [place] [facility] [id number] [place] [address] 40416- 6823 15 Aug, 2017 Factitious disorder imposed on self, recurrent episode F68.10 ; Personality disorder F60.9 ; Insomnia, unspecified type G47.[address] [facility] [address] [place] [address] 47473- 9757 08 Aug, 2017 Back pain M54.9 ; Iron deficiency anemia, unspecified iron deficiency anemia type D50.9 ; Chronic kidney disease, unspecified stage N18.9 and Breast cancer screening Z12.31 [facility] [address] [id number] [id number] Jul, Back pain M54.9 [facility] [id number] [id number] Jul, [facility] [id number] [id number] Jul, [facility] [id number] [address] Jun, Back pain M54.9 [facility] [address] [id number] [id number] Jun, [facility] [id number] [place] [address] Jun, Back pain M54.9 [facility] [id number] [address]- 8154 Jun, Back pain M54.9 ; Seizure disorder G40.909 and Age-related osteoporosis without current pathological fracture M81.0 [facility] [address] [id number] [id number] May, [facility] [id number] [address] May, Back pain M54.9 [facility] [id number] [address] 7955 Apr, Back pain M54.9 ; Encounter for immunization Z23 ; Gastroesophageal reflux disease without esophagitis K21.9 ; Age-related osteoporosis without current pathological fracture M81.0 [address] Chronic pruritus L29.9 [facility] [id number] [address] 8078 Apr, History of CVA with residual deficit I69.30 [facility] [id number] [address] 8217 Apr, Factitious disorder imposed on self, recurrent episode F68.10 and Personality disorder F60.9 [facility] [id number] [id number] 08 Apr, [address] [facility] [address] [place] [address] 84035- 4615 Mar, Factitious disorder imposed on self, recurrent episode F68.10 [facility] [address] [place] [address] 67327- 1183 Mar, [facility] [id number] [place] [address] [id number] Mar, [facility] [id number] [place] [address] [id number] Mar, Back pain M54.9 [place] [address] [place] [address] 56585- 0123 Mar, Back pain M54.9 ; Seizure disorder G40.909 and Age-related osteoporosis without current pathological fracture M81.0 [place] [address] [place] [address] 89735- 5380 Feb, History of CVA with residual deficit I69.30 [place] [address] [place] [address] 25871- 9415 Feb, Factitious disorder imposed on self, recurrent episode F68.10 and Personality disorder F60.9 [facility] [address] [place] [address] 66291- 2810 15 Feb, [address] [facility] [address] [place] [address] 30106- 4091 Feb, [facility] [address] [place] [address] 54728- 6375 Jan, [facility] [address] [place] [id number] Jan, Age- related osteoporosis without current pathological fracture M81.0 and Allergic state, subsequent encounter T78.40XD [place] [address] [address]- 1399 Jan, Factitious disorder imposed on self, recurrent episode F68.10 and Personality disorder F60.9 [facility] [address]005[address]100[place] [address]- 8750 Dec, Back pain M54.9 [facility] [address] [address]- 9034 Dec, Personality disorder F60.9 and Factitious disorder imposed on self, recurrent episode F68.10 [facility] [id number] [place] [id number] Dec, Back pain M54.9 [facility] [id number] [place] [address] [id number] Dec, [facility] [id number] [place] [id number] Dec, [facility] [address] [address] 1528 Dec, [facility] [id number] [place] [address] 69156- 3033 Nov, [facility] [address] [place] [address] 33896- 4962 Nov, Back pain M54.9 ; Anemia, unspecified type D64.9 and History of colon polyps Z86.010 [facility] [address] [address]- 5040 Nov, Back pain M54.9 [facility] [id number] [place] [id number] October, Back pain M54.9 [facility] [address] [place] [id number] October, Back pain M54.9 and Gastroesophageal reflux disease without esophagitis K21.9 [facility] [id number] [place] [id number] Sep, [facility] [address] [facility] [id number] [place] [address]- 3220 Sep, [facility] [address] [address]- 8396 Sep, [facility] [address] [facility] [id number] [place] [address]- 1598 Sep, [facility] [address] [address]- 1798 Sep, [facility] [id number] [address]- 7625 Sep, Seizure disorder G40.909 [facility] [address] [address]- 6355 Sep, Back pain M54.9 [facility] [address] [address]- 2929 Sep, [facility] [address] [address]- 3977 Aug, Back pain M54.9 [facility] [address] [address]- 4889 Aug, Seizure disorder G40.909 [facility] [id number] [id number] Aug, [facility] [id number] [place] [id number] 16 Aug, 2016 Back pain M54.9 [facility] [id number] [place] [id number] Aug, Back pain M54.9 [facility] [id number] [id number] Aug, Back pain M54.9 [facility] [address] [place] [id number] Jul, Weakness R53.1 [facility] [address] [address]- 5899 Jul, Seizure disorder G40.909 [facility] [address] [place] [address] 13492- 8640 Jul, [facility] [address] [place] [address] 45984- 6358 Jul, Breast cancer screening Z12.39 [facility] [id number] [place] [address] 57504- 9618 Jul, [facility] [address] [place] [address] 42381- 0001 Jul, [facility] [id number] [place] [address] 57378- 9640 Jul, [facility] [address] [place] [address] 23654- 9583 Jul, Seizure disorder G40.909 ; Fatigue, unspecified type R53.83 ; Perennial allergic rhinitis, unspecified allergic rhinitis trigger J30.89 and Chronic kidney disease, unspecified stage N18.9 [facility] [address] [place] [address] 03007- 1529 Jul, [facility] [address] [place] [address] 85534- 5758 Jul, Seizure disorder G40.909 [facility] [address] [place] [address] 72779- 6298 Jun, [facility] [address] [place] [address] 04185- 0463 Jun, [facility] and [address] [id number] Jun, Perennial allergic rhinitis, unspecified allergic rhinitis trigger J30.89 [facility] [id number] [place] [id number] Jun, [facility] [address] [place] [address] 93946- 6157 Jun, Seizure disorder G40.909 [facility] [id number] [place] [address] [id number] Jun, [facility] [id number] [place] [address] [id number] May, [facility] [id number] [place] [address] 16903- 6601 May, [facility] [id number] [place] [address] 93237- 7227 May, [facility] [id number] [place] [address] 67476- 3676 May, [facility] [id number] [place] [address] 38755- 4581 May, History of CVA with residual deficit I69.30 [facility] [id number] [place] [address] 31645- 2154 May, [facility] [id number] [place] [address] 89604- 3910 May, [facility] [id number] [place] [address] 38807- 3555 May, [facility] [id number] [place] [address] 97464- 8494 May, Seizure disorder G40.909 [facility] [address] [place] [address] 53422- 0636 May, [facility] [address] [place] [address] May, Back pain M54.9 and Seizure disorder G40.909 [facility] [id number] [place] [address] 36944- 9218 Apr, [facility] [id number] [place] [address] 10250- 9404 Apr, Back pain M54.9 [facility] [address] [id number] [address]- 7617 Mar, [facility] [address] [place] [address] Mar, Insomnia, unspecified type G47.00 [facility] [address] [facility] [id number] [place] [address]- 8522 Mar, [facility] [address] [facility] [id number] [place] [address] 35340- 8027 Feb, [facility] [address] [facility] [id number] [place] [address] 99795- 5739 Feb, [facility] [id number] [place] [address] 06671- 3757 Feb, [facility] [id number] [place] [address] 66441- 3376 Jan, [facility] [id number] [place] [address] 11739- 7042 Jan, [facility] [address] [place] [address] Jan, Seizure disorder G40.909 [address] Back pain M54.9 [facility] [address] [place] [address] 48047- 4949 Dec, [facility] [address]00565100[place] [address]- 0972 Dec, [facility] [address]00565100[place] [address]- 6831 Dec, [facility] [address] [id number] [address]- 7800 Nov, [facility] [id number] [place] [address] 20957- 3923 Nov, [facility] [address] [id number] [address]- 4596 Nov, Back pain M54.9 [facility] [id number] [place] [address] 04005- 5371 October, [facility] [id number] [place] [address] 66320- 3790 October, Back pain M54.9 [facility] [id number] [place] [address] 93259- 7085 October, Seizure disorder G40.[address] [facility] [address] 72575- 6372 Sep, History of CVA with residual deficit I69.30 [facility] [address] 96179- 4642 Sep, [facility] [address] 75814- 0118 Sep, [facility] [id number] [place] [address] 51236- 3322 Sep, Back pain M54.9 [facility] [id number] [place] [address] 87732- 0540 Sep, Seizure disorder G40.909 [facility] [id number] [place] [address] 96193- 6769 Aug, Back pain M54.9 [facility] [id number] [place] [address] 60508- 4673 18 Aug, [address] [facility] [id number] [place] [address] 11658- 5445 16 Aug, [address] [facility] [id number] [place] [address] 74893- 5958 14 Aug, 2015 Heart failure, unspecified I50.9 [facility] [id number] [place] [address] 06839- 8684 14 Aug, 2015 Medication monitoring encounter Z51.81 [facility] [address] 63658- 5380 Jul, [facility] [address] [address]- 5293 Jul, Seizure disorder G40.909 [facility] [address]- 6846 05 Jul, [address] [facility] [address] [place] [address] 13460- 1278 Jun, [facility] [address] [place] [address] 94432- 7921 Jun, [facility] [id number] [place] [address] 52679- 6068 Jun, Mental status change R41.82 ; History of CVA with residual deficit I69.30 ; Back pain M54.9 and Seizure disorder G40.909 [facility] [id number] [place] [address]120[address] 5429 Jun, [facility] [address] [address] May, [facility] [id number] [place] [address]8551- 3540 Apr, [facility] [id number] [place] [address]45- 0614 Apr, Medication monitoring encounter Z51.81 [facility] [id number] [address] Mar, [address] R[address].10 [facility] [id number] [address] Mar, [facility] [id number] [place] [address] [id number]- 6035 18 Feb, 2015 [facility] [id number] [address] 10 Feb, 2015 UTI (urinary tract infection) 599.0 [facility] [place] [facility] [address] [id number] [place] [address] Jan, [facility] [place] [facility] [address] [id number] [place] [address]265 Jan, [facility] [place] [facility] [address] [id number] [place] [address] Jan, [facility] [place] [facility] [address] [id number] [place] [address] Dec, [facility] [place] [facility] [address] [id number] [place] [address] 4110 Dec, [facility] [place] [facility] [address] [id number] [place] [address]- 0028 Dec, [facility] [place] [facility] [address] [id number] [place] [address] 4648 Dec, [facility] [place] [facility] [address] [id number] [place] [address] 8244 Nov, UNKNOWN Nov, [facility] [place] [facility] [address] [id number] [place] [address] October, [facility] [place] [facility] [address] [id number] [place] [address] 0030 Sep, [facility] [place] [facility] [address] [id number] [place] [address] 1309 Sep, [facility] [place] [facility] [address] [id number] [place] [address] 288[address] Aug, [facility] [place] [facility] [address] [id number] [place] [address]18 Aug, [facility] [place] [facility] [address] [id number] [place] [address] 9[address] Jul, [facility] [place] [facility] [address] [id number] [place] [address]- 4635 Jul, [facility] [place] [facility] [address] [id number] [place] [address] 4260 13 Jul, 2014 [facility] [address] [id number] [place] [address] 1506 Jul, [facility] [place] [facility] [address] [id number] [place] [address] 3958 Jul, [facility] [place] [facility] [address] [id number] [place] [address]647 Jun, [facility] [facility] [address] [id number] [place] [address] Jun, [facility] [address] [id number] [place] [address] 4828 Jun, [facility] [place] [facility] [address] [id number] [place] [address] 1242 Jun, [facility] [address] [id number] [place] [address] Jun, [facility] [address] [id number] [place] [address] 1485 Jun, [facility] [address] [id number] [place] [address]- 2805 Jun, [facility] [address] [id number] [place] [address]- 6231 Jun, [facility] [address] [id number] [place] [address]- 9929 Jun, [facility] [address] [id number] [place] [address]- 2128 Jun, [facility] [place] [address] [id number] [place] [address]- 5695 Jun, [facility] [address] [id number] [place] [address]- 6918 Jun, [facility] [address] [id number] [place] [address] 64[address] Jun, [facility] [address] [id number] [place] [address]- 3432 Jun, [facility] [address] [id number] [place] [address]- 3739 Jun, [facility] [address] [id number] [place] [address]- 3179 Jun, [facility] [address] [id number] [place] [address]- 2827 Jun, [facility] [address] [id number] [place] [address]- 0435 Jun, [facility] [address] [id number] [place] [address]- 7142 May, [facility] [address] [id number] [place] [address] 1948 May, [facility] [address] [id number] [place] [address]- 0920 May, [facility] [address] [id number] [place] [address] 1936 May, [facility] [address] [id number] [place] [address]- 9590 May, [facility] [address] [id number] [place] [address]- 2506 May, [facility] [address] [id number] [place] [address]- 3438 16 May, 2014 [facility] [address] [id number] [place] [address]- 4164 15 May, 2014 [facility] [address] [id number] [place] [address]- 4158 May, [facility] [address] [id number] 04 May, 2014 [facility] [address] [id number] [place] [address]- 8803 May, [facility] [address] [id number] [place] [address]- 6975 May, [facility] [address] [id number] [place] [address]- 0036 May, [facility] [address] [facility] [id number] [place] [address]- 6047 Apr, [facility] [address] [id number] [place] [address]- 7979 Apr, [facility] [address] [id number] [place] [address]- 1400 Apr, [facility] [address] [id number] [place] [address]- 6161 Apr, [facility] [address] [id number] [place] [address]- 6237 Apr, [facility] [place] [facility] [address] [id number] [place] [address]- 2901 Apr, [facility] [address] [id number] [place] [address]- 2652 Mar, [facility] [address] [id number] [place] [address]- 6287 Mar, [facility] [address] [id number] [place] [address]- 0291 Mar, [facility] [address] [id number] [place] [address]- 4896 Mar, [facility] [address] [id number] [place] [address]- 0400 Mar, [facility] [address] [id number] [place] [address]- 8617 Mar, [facility] [address] [id number] [place] [address]- 6618 Feb, [facility] [address] [id number] [place] [address]- 1186 24 Feb, 2013 [facility] [address] [id number] [place] [address]- 0756 Feb, [facility] [address] [id number] [place] [address] 2546 Feb, [facility] [address] [id number] [place] [address] 2547 Feb, [facility] [address] [id number] [place] [address] 2543 Feb, [facility] [address] [id number] [place] [address]- 6459 Feb, [facility] [address] [id number] [place] [address]- 5782 Feb, [facility] [address] [id number] [place] [address]- 8936 Feb, [facility] [address] [id number] [place] [address]- 2541 Feb, [facility] [address] [id number] Feb, [facility] [address] [id number] [place] [address]- 0512 Feb, [facility] [address] [id number] [place] [address]- 1420 Jan, [facility] [address] [id number] [place] [address]- 2544 Jan, [facility] [address] [id number] [place] [address]- 9353 Dec, [facility] [address] [id number] [place] [address]- 5046 Dec, [facility] [address] [id number] [place] [address]- 9774 Dec, [facility] [address] [id number] [place] [address] 37[address] Dec, 2013 [facility] [address] [id number] [place] [address]- 7180 Dec, 2013 [facility] [address] [id number] [place] [address]- 5516 Dec, 2013 [facility] [address] [id number] [place] [address]- 0586 Dec, 2013 [facility] [address] [id number] [place] [address]- 7730 Dec, 2013 [facility] [address] [id number] [place] [address]- 3118 Dec, [facility] [address] [id number] [place] [address]- 4580 Dec, [facility] [address] [id number] [place] [address]- 1700 Nov, [facility] [address] [id number] [place] [address]- 6547 Nov, [facility] [address] [id number] [place] [address]- 2698 Nov, [facility] [address] [id number] [place] [address]- 1406 Nov, [facility] [address] [id number] [place] [address]- 7229 Nov, [facility] [address] [id number] [place] [address]- 6683 Nov, [facility] [address] [id number] [place] [address]- 0018 Nov, [facility] [address] [id number] [place] [address]- 6676 Nov, [facility] [address] [id number] [place] [address]- 8753 Nov, [facility] [address] [id number] [place] [address]- 8146 Nov, [facility] [address] [id number] [place] [address]- 5142 Nov, [facility] [address] [id number] [place] [address]- 5270 Nov, [facility] [address] [id number] [place] [address]- 8715 Nov, [facility] [address] [id number] [place] [address]- 8469 Nov, [facility] [address] [id number] [place] [address]- 4333 October, [facility] [address] [id number] [place] [address]- 2171 October, [facility] [address] [id number] [place] [address]- 3224 October, [facility] [address] [id number] [place] [address]- 1655 October, [facility] [address] [id number] [place] [address]- 7089 October, [facility] [address] [id number] [place] [address]- 2892 October, [facility] [address] [id number] [place] [address]- 6071 October, [facility] [address] [id number] [place] [address]- 7918 October, [facility] [address] [id number] [place] [address]- 2054 October, [facility] [address] [id number] [place] [address]- 6611 October, [facility] [address] [id number] [place] [address]- 4929 Sep, [facility] [address] [id number] [place] [address]- 8826 29 Sep, 2013 [facility] [address] [id number] [place] [address]- 4487 Sep, [facility] [address] [id number] [place] [address]- 5926 Sep, [facility] [address] [id number] [place] [address]- 6694 Sep, [facility] [address] [id number] [place] [address]- 1556 Sep, [facility] [address] [id number] [place] [address]- 9044 Sep, [facility] [address] [id number] [place] [address]- 2329 Sep, [facility] [address] [id number] [place] [address]- 0644 Sep, [facility] [address] [id number] [place] [address]- 2441 Sep, [facility] [address] [id number] [place] [address]- 8812 Aug, [facility] [address] [id number] [place] [address]- 3373 Aug, [facility] [address] [id number] [place] [address]- 3425 Aug, [facility] [address] [id number] [place] [address]- 2425 Aug, [facility] [address] [id number] [place] [address]- 4356 Aug, [facility] [address] [id number] [place] [address]89 Aug, [facility] [address] [id number] [place] [address]- 2776 Aug, [facility] [address] [id number] [place] [address]- 1393 Aug, [facility] [address] [id number] [place] [address]- 6433 Aug, [facility] [address] [id number] [place] [address]- 4683 Jul, [facility] [address] [id number] [place] [address]- 4676 Jul, [facility] [address] [id number] [place] [address]- 8566 Jul, [facility] [address] [id number] [place] [address]- 6881 Jul, [facility] [address] [id number] [place] [address]- 2179 Jul, [facility] [address] [id number] [place] [address]- 8256 Jul, [facility] [address] [id number] [place] [address]- 4641 Jul, [facility] [address] [id number] [place] [address]- 1629 Jul, [facility] [address] [id number] [place] [address]- 2544 Jul, [facility] [address] [id number] [place] [address]- 0819 Jul, [facility] [address] [id number] [place] [address]- 0761 Jul, [facility] [address] [id number] [place] [address]- 5306 Jul, [facility] [address] [id number] [place] [address]- 9971 04 Jul, 2013 [facility] [address] [id number] [place] [address]- 2116 Jul, [facility] [address] [id number] [place] [address]- 9756 Jul, [facility] [address] [id number] [place] [address]- 6566 Jul, [facility] [address] [id number] [place] [address]- 9788 Jun, [facility] [address] [id number] [place] [address]- 8958 Jun, [facility] [address] [id number] [place] [address]- 3556 Jun, [facility] [address] [id number] [place] [address]- 4988 Jun, [facility] [address] [id number] [place] [address]- 3089 Jun, [facility] [address] [id number] [place] [address]- 0741 Jun, [facility] [address] [id number] [place] [address]- 9501 May, [facility] [address] [id number] [place] [address]- 4155 May, [facility] [address] [id number] [place] [address]- 9003 May, [facility] [address] [id number] [place] [address]- 1076 May, [facility] [address] [id number] [place] [address]- 4616 Apr, [facility] [address] [id number] [place] [address]- 5868 Apr, [facility] [address] [id number] [place] [address]- 3233 Apr, [facility] [facility] [address] [id number] [place] [address]- 7014 Apr, [facility] [address] [id number] [place] [address]- 7375 Apr, [facility] [address] [id number] [place] [address]- 1743 Apr, [facility] [address] [id number] [place] [address]- 3829 Apr, [facility] [address] [id number] [place] [address]- 8584 Apr, [facility] [address] [id number] [place] [address]- 6566 Apr, [facility] [address] [id number] [place] [address]- 2857 Apr, [facility] [address] [id number] [place] [address]- 6686 Apr, [facility] [address] [id number] [place] [address]- 8344 Apr, [facility] [address] [id number] [place] [address]- 5876 Mar, [facility] [address] [id number] [place] [address]- 6006 28 Mar, 2013 [facility] [address] [id number] [place] [address]- 5672 16 Mar, 2013 [facility] [address] [id number] [place] [address]- 4109 16 Mar, 2013 [facility] [place] [address] [id number] [place] [address]- 8356 15 Mar, 2013 [facility] [place] [facility] [address] [id number] [place] [address]- 6661 15 Mar, 2013 [facility] [address] [id number] [place] [address]- 3796 27 Feb, 2012 [facility] [place] [facility] [address] [id number] [place] [address] 2546 25 Feb, 2012 [facility] [place] [facility] [address] [id number] [place] [address] 2546 25 Feb, 2012 [facility] [place] [facility] [address] [id number] [place] [address] 2542 23 Feb, 2012 [facility] [place] [facility] [address] [id number] [place] [address]- 9357 17 Feb, 2012 [facility] [place] [facility] [address] [id number] [place] [address]- 9198 10 Feb, 2013 [facility] [address] [id number] [place] [address]- 7989 04 Feb, 2012 [facility] [place] [facility] [address] [id number] [place] [address]- 2461 30 Jan, 2013 [facility] [place] [facility] [address] [id number] [place] [address]- 8913 Jan, [facility] [place] [facility] [address] [id number] [place] [address]- 8114 15 Jan, 2013 [facility] [place] [facility] [address] [id number] [place] [address]- 8782 14 Jan, 2013 [facility] [place] [facility] [address] [id number] [place] [address]- 2545 Jan, [facility] [place] [facility] [address] [id number] [place] [address]- 3085 Jan, [facility] [place] [facility] [address] [id number] [place] [address]- 0605 Jan, [facility] [place] [facility] [address] [id number] [place] [address]- 0609 Dec, [facility] [place] [facility] [address] [id number] [place] [address]- 8517 Dec, [facility] [address] [id number] [place] [address]- 4415 Dec, [facility] [place] [facility] [address] [id number] [place] [address]- 1713 Dec, [facility] [place] [facility] [address] [id number] [place] [address]- 5200 Dec, [facility] [address] [id number] [place] [address]- 7717 Dec, [facility] [place] [facility] [address] [id number] [place] [address]- 9983 Nov, [facility] [address] [id number] [place] [address]- 4460 Nov, [facility] [address] [id number] [place] [address]- 6747 Nov, [facility] [address] [id number] [place] [address]- 9948 Nov, [facility] [place] [facility] [address] [id number] [place] [address]- 5629 October, [facility] [place] [facility] [address] [id number] [place] [address]- 2826 October, [facility] [place] [facility] [address] [id number] [place] [address]- 7583 October, [facility] [place] [facility] [address] [id number] [place] [address]- 3587 October, [facility] [place] [facility] [address] [id number] [place] [address]- 0925 Sep, [facility] [place] [facility] [address] [id number] [place] [address]- 7541 Sep, [facility] [place] [facility] [address] [id number] [place] [address]- 3586 16 Sep, 2012 [facility] [address] [id number] [place] [address]- 8608 Sep, [facility] [address] [id number] [place] [address]- 5588 Sep, [facility] [address] [facility] [id number] [place] [address]- 9482 Sep, [facility] [place] [facility] [address] [id number] [place] [address]- 1865 Sep, [facility] [address] [id number] [place] [address]- 3233 Sep, [facility] [address] [facility] [id number] [place] [address]- 7385 Aug, [facility] [address] [facility] [id number] [place] [address]- 4267 Aug, [facility] [place] [facility] [address] [id number] [place] [address]- 5831 Aug, [facility] [place] [facility] [address] [id number] [place] [address]- 9082 18 Jul, 2012 [facility] [place] [facility] [address] [facility] [id number] [place] [address]- 5510 08 Jul, 2012 [facility] [place] [facility] [address] [id number] [place] [address]- 7542 07 Jul, 2012 [facility] [place] [facility] [address] [id number] [place] [address] 06 Jul, 2012 [facility] [place] [facility] [address] [id number] [place] [address] 05 Jul, 2012 [facility] [place] [facility] [address] [id number] [place] [address] Jun, [facility] [place] [facility] [address] [facility] [id number] [place] [address] Jun, [facility] [place] [facility] [address] [id number] [place] [address] Jun, [facility] [place] [facility] [address] [id number] [place] [address] May, [facility] [place] [facility] [address] [id number] [place] [address] May, [facility] [place] [facility] [address] [id number] [place] [address] 47[address] May, [facility] [place] [facility] [address] [id number] [place] [address] May, [facility] [place] [facility] [address] [id number] [place] [address]- 47[address] May, [facility] [place] [facility] [address] [id number] [place] [address] May, [facility] [place] [facility] [address] [id number] [place] [address] 85[address] May, [facility] [place] [facility] [address] [id number] [place] [address] Apr, [facility] [place] [facility] [address] [id number] [place] [address] Apr, [facility] [place] [facility] [address] [id number] [place] [address] Apr, [facility] [place] [facility] [address] [id number] [place] [address] 27 Apr, 2012 [facility] [place] [facility] [address] [id number] [place] [address]47 Apr, [facility] [place] [facility] [address] [id number] [place] [address] Apr, [facility] [place] [facility] [address] [id number] [place] [address]- [address] 13 Apr, 2012 [facility] [place] [facility] [address] [id number] [place] [address] Apr, [facility] [place] [facility] [address] [id number] [place] [address] 94[address] Apr, [facility] [place] [facility] [address] [id number] [place] [address] Apr, [facility] [place] [facility] [address] [id number] [place] [address]- 117[address] Apr, [facility] [place] [facility] [address] [id number] [place] [address]- 8027 Mar, [facility] [place] [facility] [address] [id number] [place] [address] Mar, [facility] [place] [facility] [address] [id number] [place] [address] Mar, [facility] [place] [facility] [address] [id number] [place] [address] Mar, [facility] [place] [facility] [address] [id number] [place] [address] Mar, [facility] [place] [facility] [address] [id number] [place] [address] Mar, [facility] [place] [facility] [address] [id number] [place] [address] Mar, [facility] [place] [facility] [address] [id number] [place] [address] Mar, [facility] [place] [facility] [address] [id number] [place] [address] 9398 Mar, [facility] [place] [facility] [address] [id number] [place] [address] Mar, [facility] [place] [facility] [address] [facility] [id number] [place] [address] Mar, [facility] [place] [facility] [address] [id number] [place] [address] Feb, [facility] [place] [facility] [address] [id number] [place] [address] 1136 27 Sep, 2011 [facility] [place] [facility] [address] [id number] [place] [address] 2546 27 Sep, 2011 [facility] [place] [facility] [address] [id number] [place] [address] 2546 26 Feb, 2011 [facility] [place] [facility] [address] [id number] [place] [address] 2546 24 Feb, 2011 [facility] [place] [facility] [address] [id number] [place] [address] 2546 19 Feb, 2011 [facility] [place] [facility] [address] [id number] [place] [address]- 4[address] 18 Feb, 2011 [facility] [place] [facility] [address] [id number] [place] [address] 2546 18 Feb, 2011 [facility] [place] [facility] [address] [id number] [place] [address]- 1001 18 Feb, 2011 [facility] [place] [facility] [address] [id number] [place] [address] Jan, [facility] [place] [facility] [address] [id number] [place] [address]- [address] Jan, [facility] [place] [facility] [address] [id number] [place] [address] 2543 Jan, [facility] [place] [facility] [address] [id number] [place] [address] 2546 Jan, [facility] [place] [facility] [address] [id number] [place] [address] 2549 Dec, [facility] [place] [facility] [address] [id number] [place] [address]- [address]66 Dec, [facility] [place] [facility] [address] [id number] [place] [address]- 2546 Dec, [facility] [place] [facility] [address] [id number] [place] [address]- 9317 Dec, [facility] [place] [facility] [address] [id number] [place] [address] Dec, [facility] [place] [facility] [address] [id number] [place] [address]- 8632 Dec, [facility] [place] [facility] [address] [id number] [place] [address]- 2089 Dec, [facility] [place] [facility] [address] [id number] [place] [address]- [address]67 Dec, [facility] [place] [facility] [address] [id number] [place] [address]- 45[address] Dec, [facility] [place] [facility] [address] [id number] [place] [address]- 8499 Dec, [facility] [place] [facility] [address] [id number] [place] [address]- 8574 Dec, [facility] [place] [facility] [address] [id number] [place] [address]- 8872 Dec, [facility] [place] [facility] [address] [id number] [place] [address]- 2908 Dec, [facility] [place] [facility] [address] [id number] [place] [address]- 64[address] Dec, [facility] [place] [facility] [address] [id number] [place] [address]- 1509 Nov, [facility] [place] [facility] [address] [id number] [place] [address]- 266[address] Nov, [facility] [place] [facility] [address] [id number] [place] [address]- 9812 Nov, [facility] [place] [facility] [address] [id number] [place] [address]- 8111 Nov, [facility] [place] [facility] [address] [id number] [place] [address]- [address] Nov, [facility] [place] [facility] [address] [id number] [place] [address]- 2546 Nov, [facility] [address] [id number] [place] [address]- 9483 October, [facility] [place] [facility] [address] [id number] [place] [address]- [address] October, [facility] [place] [facility] [address] [id number] [place] [address]- 4556 October, [facility] [place] [facility] [address] [id number] [place] [address]- [address]227 October, [facility] [place] [facility] [address] [id number] [place] [address]- 8[address] Sep, [facility] [facility] [address] [id number] [place] [address] 17 Sep, 2011 [facility] [place] [facility] [address] [id number] [place] [address] Sep, [facility] [place] [facility] [address] [id number] [place] [address] Sep, [facility] [place] [facility] [address] [id number] [place] [address] Sep, [facility] [place] [facility] [address] [id number] [place] [address] Aug, [facility] [place] [facility] [address] [id number] [place] [address] Aug, [facility] [place] [facility] [address] [id number] [place] [address] Aug, [facility] [place] [facility] [address] [id number] [place] [address] 20 Aug, 2011 [facility] [place] [facility] [address] [id number] [place] [address] 13 Aug, 2011 [facility] [place] [facility] [address] [id number] [place] [address] Aug, [facility] [place] [facility] [address] [id number] [place] [address] Aug, [facility] [address] [id number] [place] [address] Jul, [facility] [address] [facility] [id number] [place] [address]- [address] 16 Jul, 2011 [facility] [address] [facility] [id number] [place] [address] Jul, [facility] [address] [facility] [id number] [place] [address] Jul, [facility] [address] [facility] [id number] [place] [address] Jun, [facility] [address] [place] [id number] Jun, [facility] [place] [id number] [address] Jun, [facility] [address] [facility] [id number] [place] [address] Jun, [facility] [address] [id number] [place] [address] Jun, [facility] [address] [id number] [address] Jun, [facility] [address] [id number] [address]- [address] Jun, [facility] [address] [facility] [id number] [place] [address] Jun, [facility] [address] [facility] [id number] [place] [address]- [address]846 May, [facility] [address] [facility] [id number] [place] [address]- [address]36 May, [facility] [address] [facility] [id number] [place] [address] May, [facility] [place] [facility] [address] [id number] [place] [address]- 4468 May, [facility] [place] [facility] [address] [id number] [place] [address]- [address]398 May, [facility] [place] [facility] [address] [id number] [place] [address]- 1485 May, [facility] [place] [facility] [address] [id number] [place] [address]- [address] May, [facility] [place] [facility] [address] [id number] [place] [address]- 0673 Apr, [facility] [place] [facility] [address] [id number] [place] [address]- 8263 Apr, [facility] [place] [facility] [address] [id number] [place] [address]- 1056 Apr, [facility] [place] [facility] [address] [id number] [place] [address]- [address] Mar, [facility] [place] [facility] [address] [id number] [place] [address]- [address] Mar, [facility] [place] [facility] [address] [id number] [place] [address]- [address]26 14 Mar, 2011 [facility] [place] [facility] [address] [id number] [place] [address]- 287[address] Mar, [facility] [place] [facility] [address] [id number] [place] [address]- 4914 Mar, [facility] [place] [facility] [address] [id number] [place] [address]- 6414 Mar, [facility] [place] [facility] [address] [id number] [place] [address]- 9528 Mar, [facility] [place] [facility] [address] [id number] [place] [address]- 4[address] Jan, [facility] [place] [facility] [address] [id number] [place] [address]- 2546 27 May, 2010 [facility] [place] [facility] [address] [id number] [place] [address] 2546 21 May, 2010 [facility] [facility] [address] [id number] [place] [address] 2546 May, [facility] [place] [facility] [address] [id number] [place] [address] 2546 13 May, 2010 [facility] [place] [facility] [address] [id number] [place] [address] 2541 10 May, 2010 [facility] [place] [facility] [address] [id number] [place] [address] 2549 06 May, 2010 [facility] [place] [facility] [address] [id number] [place] [address]- 6477 29 Apr, 2010 [facility] [place] [facility] [address] [id number] [place] [address]- 7656 26 Apr, 2010 [facility] [place] [facility] [address] [id number] [place] [address]- 7535 Apr, [facility] [place] [facility] [address] [id number] [place] [address]- 9142 18 Apr, 2010 [facility] [place] [facility] [address] [id number] [place] [address]- 0159 15 Apr, 2010 [facility] [address] [id number] [place] [address]90 Apr, [facility] [address] [id number] [place] [address] Apr, [facility] [place] [facility] [address] [id number] [place] [address] 2549 Apr, [facility] [place] [address] [id number] [place] [address]- 2543 Apr, [facility] [address] [id number] [place] [address]- 2545 Apr, [facility] [place] [address] [id number] [address] Mar, [facility] [address] [id number] [address] Mar, [facility] [address] [id number] [address] Mar, [facility] [address] [id number] [address] 24[address] Mar, [facility] [address] [id number] [address] Mar, [facility] [address] [id number] [address] Dec, [facility] [address] [id number] [address] Nov, IMMUNIZATIONS No Known Immunizations SOCIAL HISTORY Never Assessed REASON FOR VISIT Change in coumadin PLAN OF CARE VITAL SIGNS MEDICATIONS Medication Instructions Dosage Frequency Start Date End Date Duration Status Coumadin 1 MG Orally 1 mg on sundays only, 1.5mg other days 1 tablet Active RESULTS No Results PROCEDURES [...] and skin graft, cholecysectomy Hospitalization History [facility] 12/2016 [facility]2017 [facility] History [facility] 01/2018
--- OUTSIDE RECORDS SUMMARY | 2018-07-05 15:06 | XMS REPORT ---
Author Author LUCILA CHAVEZ Organization [facility] Address [address] [place] [address] Care Team Providers Care Molder Floor Name Role Phone ESTRELLITACRICKET ADANA Unavailable PROBLEMS Type Condition ICD9-CM Code IKJ50-HZ Code Onset Dates Condition Status SNOMED Code Problem Anemia, unspecified type D64.9 Active 424660701 Problem Personality disorder F60.9 Active 44187667 Problem Factitious disorder imposed on self, recurrent episode F68.10 Active 99160349 Problem Ventral hernia without obstruction or gangrene K43.9 Active 934270013 Problem Allergic state, subsequent encounter T78.40XD Active 639441768 Problem Anxiety F41.9 Active 88562878 Problem Age-related osteoporosis without current pathological fracture M81.0 Active 59717737 Problem Unspecified psychosis not due to a substance or known physiological condition F29 Active 73387677 Problem Iron deficiency anemia, unspecified iron deficiency anemia type D50.9 Active 99962927 Problem History of CVA with residual deficit I69.30 Active 589326111 Problem Seizure disorder G40.909 Active 040041189 Problem Perennial allergic rhinitis, unspecified allergic rhinitis trigger J30.89 Active 941455976 Problem Chronic kidney disease, unspecified stage N18.9 Active 494110388 Problem Back pain M54.9 Active 370257232 Problem Gastroesophageal reflux disease without esophagitis K21.9 Active 649731266 Problem Insomnia, unspecified type G47.00 Active 479513744 Problem History of colon polyps Z86.010 Active 269263383 ALLERGIES Substance Reaction Event Type Date Status [...] Dec, Active ENCOUNTERS Encounter Location Date Diagnosis [place] [id number] [address] Mar, [facility] [id number], [place] [address]1 Feb, [facility] [id number] [place] [address] 38117- 7683 Feb, Back pain M54.9 [facility] [id number] [place] [address] 26933- 1471 Jan, Unspecified psychosis not due to a substance or known physiological condition F29 ; Personality disorder F60.9 and Factitious disorder imposed on self, recurrent episode F68.10 [place] [id number] [place] [address] 24588- 9991 Jan, [place] [id number] [place] [address] 65990- 7680 Jan, Back pain M54.9 and Seizure disorder G40.909 [place] [id number] [place] [address] 24838- 2948 Jan, Back pain M54.9 [facility] [id number] [address] 2197 Jan, Back pain M54.9 [facility] [id number] [place] [address] 31920- 6143 Jan, [place] [address] [place] [address] 53172- 9935 Jan, Unspecified psychosis not due to a substance or known physiological condition F29 ; Personality disorder F60.9 and Factitious disorder imposed on self, recurrent episode F68.10 [facility] [address], [place] [address] 3646 Dec, Back pain M54.9 ; Seizure disorder G40.909 ; Ventral hernia without obstruction or gangrene K43.9 and History of CVA with residual deficit I69.30 [facility] [id number] [place] [address] 88841- 5314 Dec, Unspecified psychosis not due to a substance or known physiological condition F29 ; Personality disorder F60.9 and Factitious disorder imposed on self, recurrent episode F68.10 [place] [id number] [place] [address] 44529- 9956 Dec, [place] [id number] [place] [address] 84569- 8522 Dec, Back pain M54.9 [place] [id number] [place] [address] 47678- 5434 Dec, Factitious disorder imposed on self, recurrent episode F68.10 ; Personality disorder F60.9 ; Insomnia, unspecified type G47.00 and Anxiety F41.9 [place] [id number] [place] [address] 34037- 6751 Nov, Unspecified psychosis not due to a substance or known physiological condition F29 ; Personality disorder F60.9 and Factitious disorder imposed on self, recurrent episode F68.10 [place] [id number] [place] [address] 62111- 9723 Nov, Back pain M54.9 [place] [id number] [place] [address] 27608- 9141 Nov, Unspecified psychosis not due to a substance or known physiological condition F29 ; Personality disorder F60.9 and Factitious disorder imposed on self, recurrent episode F68.10 [place] [address] [place] [address] 91477- 9702 October, [place] [id number] [place] [address] 43291- 8924 October, [place] [id number] [place] [address] 82711- 8669 October, Unspecified psychosis not due to a substance or known physiological condition F29 ; Personality disorder F60.9 and Factitious disorder imposed on self, recurrent episode F68.10 [facility] [id number] [place] [address] 47577- 5901 October, Back pain M54.9 [facility] [id number] [place] [address] 61408- 5546 October, Seizure disorder G40.909 ; Back pain M54.9 and Allergic state, subsequent encounter T78.40XD [facility] [id number] [place] [address] 27451- 4126 October, [facility] [id number] [place] [address] 03677- 8752 Sep, Back pain M54.9 [facility] [id number] [place] [address] 00498- 2262 Sep, Unspecified psychosis not due to a substance or known physiological condition F29 ; Personality disorder F60.9 and Factitious disorder imposed on self, recurrent episode F68.10 [facility] [address] [address]- 0320 Sep, [facility] [id number] [place] [address] 14906- 7139 Sep, [facility] [address], [place] [address]- 7182 Sep, [facility] [id number] [place] [address] 45965- 4588 Sep, [facility] [id number], [place] [address] 2082 Aug, [facility] [id number] [place] [address] 85866- 2026 Aug, Back pain M54.9 [facility] [id number], [place] [address]- 2353 Aug, Factitious disorder imposed on self, recurrent episode F68.10 ; Personality disorder F60.9 ; Insomnia, unspecified type G47.00 and Anxiety F41.9 [facility] [address] [address] [address] Aug, Back pain M54.9 ; Iron deficiency anemia, unspecified iron deficiency anemia type D50.9 ; Chronic kidney disease, unspecified stage N18.9 and Breast cancer screening Z12.31 [facility] [id number] [place] [address] [id number] Jul, Back pain M54.9 [facility] [id number] [id number] Jul, [facility] [id number] [place] [address] [id number] Jul, [facility] [id number] [place] [address] [id number] Jun, Back pain M54.9 [facility] [id number] [place] [address] [id number] Jun, [facility] [id number] [place] [address] [id number] Jun, Back pain M54.9 [facility] [address] [address] 4298 Jun, Back pain M54.9 ; Seizure disorder G40.909 and Age-related osteoporosis without current pathological fracture M81.0 [facility] [id number] [id number] May, [facility] [id number] [address]- 7484 May, Back pain M54.9 [facility] [id number] 1138 Apr, Back pain M54.9 ; Encounter for immunization Z23 ; Gastroesophageal reflux disease without esophagitis K21.9 ; Age-related osteoporosis without current pathological fracture M81.0 and Chronic pruritus L29.9 [facility] [address], [place] [address]- 6954 16 Apr, 2017 History of CVA with residual deficit I69.30 [facility] [address] [place] [address] 85392- 7122 16 Apr, 2017 Factitious disorder imposed on self, recurrent episode F68.10 and Personality disorder F60.9 [facility] [id number] [place] [address] [id number] 08 Apr, 2017 Back pain M54.9 [facility] [id number] [place] [address] 95904- 2392 Mar, Factitious disorder imposed on self, recurrent episode F68.10 [facility] [address] [place] [address] 90062- 0055 Mar, [facility] [id number] [place] [address] [id number] Mar, [facility] [id number] [place] [address] [id number] Mar, Back pain M54.9 [facility] [id number] [place] [address] 17536- 1278 05 Mar, 2017 Back pain M54.9 ; Seizure disorder G40.909 and Age-related osteoporosis without current pathological fracture M81.0 [facility] [address], [place] [address]- 2241 Feb, History of CVA with residual deficit I69.30 [facility] [address], [place] [address]- 9293 19 Feb, 2017 Factitious disorder imposed on self, recurrent episode F68.10 and Personality disorder F60.9 [facility] [address], [place] [address]- 0244 15 Feb, 2017 Back pain M54.9 [facility] [address] [place] [address] 41938- 1179 Feb, [facility] [id number], [place] [address]- 2265 Jan, [facility] [address] [id number] Jan, Age- related osteoporosis without current pathological fracture M81.0 and Allergic state, subsequent encounter T78.40XD [facility] [address], [place] [address]- 7634 Jan, Factitious disorder imposed on self, recurrent episode F68.10 and Personality disorder F60.9 [facility] [address], [place] [address]- 3919 Dec, Back pain M54.9 [facility] [address] [place] [address] 87255- 1551 Dec, Personality disorder F60.9 and Factitious disorder imposed on self, recurrent episode F68.10 [facility] [id number] [place] [address] [id number] Dec, Back pain M54.9 [facility] [id number] [place] [address] [id number] Dec, [facility] [id number] [place] [address] [id number] Dec, [facility] [address], [place] [address]- 1793 Dec, [facility] [address], [place] [address]- 9756 Nov, [facility] [address], [place] [address]- 4813 Nov, Back pain M54.9 ; Anemia, unspecified type D64.9 and History of colon polyps Z86.010 [facility] [address], [place] [address]- 3880 Nov, Back pain M54.9 [facility] [id number] [place] [address] [id number] October, Back pain M54.[address] [id number] October, Back pain M54.9 and Gastroesophageal reflux disease without esophagitis K21.9 [facility] [id number] [id number] Sep, [facility] [address] [address] 1211 Sep, [facility] [id number], [place] [address]- 2203 Sep, [facility] [address], [place] [address]- 3899 Sep, [facility] [address], [place] [address]- 9743 Sep, [facility] [address], [place] [address]- 0904 Sep, Seizure disorder G40.909 [facility] [id number], [place] [address]- 0913 Sep, Back pain M54.9 [facility] [address] 6616 Sep, [facility] [address], [place] [address]- 5041 Aug, Back pain M54.9 [facility] [id number] [address] 8029 Aug, Seizure disorder G40.909 [facility] [address] [id number] [id number] Aug, [facility] [id number] [id number] 16 Aug, 2016 Back pain M54.9 [facility] [id number] [id number] 14 Aug, 2016 Back pain M54.9 [facility] [id number] [id number] Aug, Back pain M54.9 [facility] [address] [place] [address] [id number] Jul, Weakness R53.1 [facility] [address] [place] [address] 33772- 5049 Jul, Seizure disorder G40.909 [facility] [id number] [place] [address] 19643- 2323 Jul, [facility] [id number] [place] [address] 15131- 7329 Jul, Breast cancer screening Z12.39 [place] [id number] [place] [address] 69852- 4216 Jul, [facility] [id number] [place] [address] 06515- 6601 Jul, [facility] [address] [place] [address] 56908- 3367 Jul, [facility] [address] [place] [address] 66874- 2433 Jul, Seizure disorder G40.909 ; Fatigue, unspecified type R53.83 ; Perennial allergic rhinitis, unspecified allergic rhinitis trigger J30.89 and Chronic kidney disease, unspecified stage N18.9 [facility] [address], [place] [address]- 6647 Jul, [facility] [address], [place] [address]- 4237 Jul, Seizure disorder G40.909 [facility] [address], [place] [address]- 3192 Jun, [facility] [address] [place] [address] 39518- 0589 Jun, [facility] [address] [id number] Jun, Perennial allergic rhinitis, unspecified allergic rhinitis trigger J30.89 [facility] [id number] [place] [address] [id number] Jun, [facility] [id number] [place] [address] 91162- 8622 Jun, Seizure disorder G40.909 [facility] [id number] [place] [address] [id number] Jun, [facility] [id number] [place] [address] [id number] May, [facility] [id number] [place] [address] 46715- 2324 May, [facility] [id number] [place] [address] 26460- 3873 May, [facility] [id number] [place] [address] 32134- 6716 May, [facility] [address] [place] [address] 13974- 0751 May, History of CVA with residual deficit I69.30 [facility] [address] [place] [address] 38716- 7634 May, [facility] [address] [place] [address] 43639- 1238 May, [facility] [address] [place] [address] 06909- 8504 May, [facility] [address] [place] [address] 67975- 3020 May, Seizure disorder G40.909 [facility] [address], [place] [address]- 0168 May, [facility] [address] [place] [address] May, Back pain M54.9 and Seizure disorder G40.909 [facility] [address] [facility] [id number], [place] [address]- 6046 Apr, [facility] [address] [facility] [id number] [place] [address] 81737- 4486 Apr, Back pain M54.9 [facility] [address] [facility] [id number] [place] [address] 44762- 6829 Mar, [facility] [address] [place] [address] Mar, Insomnia, unspecified type G47.00 [facility] [address] [facility] [id number] [place] [address] 12531- 5071 Mar, [facility] [address] [facility] [id number] [place] [address] 83120- 4872 Feb, [facility] [id number] [place] [address] 22464- 0780 Feb, [facility] [address] [facility] [id number] [place] [address] 22329- 0993 Feb, [facility] [address] [facility] [id number] [place] [address] 46636- 9895 Jan, [facility] [address] [facility] [id number] [place] [address] 32955- 8159 Jan, [facility] [address] [place] [address] Jan, Seizure disorder G40.909 and Back pain M54.9 [facility] [address] [facility] [id number], [place] [address]- 7294 Dec, [facility] [address] [facility] [id number] [place] [address] 06962- 9896 Dec, [facility] [address] [facility] [id number], [place] [address]- 6667 Dec, [facility] [address] [facility] [id number] [place] [address] 34224- 2815 Nov, [facility] [id number] [place] [address] 96442- 8887 Nov, [facility] [id number] [place] [address] 04954- 2709 Nov, Back pain M54.9 [facility] [id number] [place] [address] 60130- 5231 October, [facility] [id number] [place] [address] 47038- 3599 October, Back pain M54.9 [facility] [address] 6[address]- 9232 October, Seizure disorder G40.909 and B12 deficiency E53.8 [facility] [id number] [place] [address] 65618- 1200 Sep, History of CVA with residual deficit I69.30 [facility] [id number] [place] [address] 55084- 9866 Sep, [facility] [id number] [place] [address] 94963- 8137 Sep, [facility] [id number] [place] [address] 14455- 1782 Sep, Back pain M54.9 [facility] [id number] [place] [address] 61475- 7530 Sep, Seizure disorder G40.909 [facility] [id number] [place] [address] 54595- 2153 Aug, Back pain M54.9 [facility] [id number] [place] [address] 56789- 0526 Aug, Seizure disorder G40.909 [facility] [id number] [place] [address] 95518- 7196 Aug, Back pain M54.9 [facility] [id number] [place] [address] 70852- 2311 14 Aug, 2015 Heart failure, unspecified I50.9 [facility] [id number] [place] [address] 49153- 2738 14 Aug, 2015 Medication monitoring encounter Z51.81 [facility] [id number] [place] [address] 48929- 6034 15 Jul, 2015 [facility] [id number] [place] [address] 19863- 5894 09 Jul, 2015 Seizure disorder G40.909 [facility] [id number] [place] [address] 77203- 6724 05 Jul, 2015 Back pain M54.9 [facility] [facility] [id number] [place] [address] 15917- 8753 Jun, [facility] [id number] [place] [address] 24622- 9347 Jun, [facility] [id number] [place] [address] 88677- 4253 Jun, Mental status change R41.82 ; History of CVA with residual deficit I69.30 ; Back pain M54.9 and Seizure disorder G40.909 [facility] [facility] [address] [place] [address] 13817- 6981 Jun, [facility] [id number] [place] [address] 73347- 5374 May, [facility] [id number] [place] [address] 35086- 2236 Apr, [facility] [id number] [place] [address] 06312- 0896 Apr, Medication monitoring encounter Z51.81 [facility] [facility] [id number] [place] [address] 85852- 3745 Mar, Vomiting R11.10 [place] [address] [address]- 1356 Mar, [facility] [address] [id number] [place] [address]- 8830 Feb, [facility] [address] [id number] [place] [address]- 3146 Feb, UTI (urinary tract infection) 599.0 [facility] [address] [id number] [place] [address]- 2357 Jan, [facility] [address] [id number] [place] [address]- 3945 Jan, [facility] [address] [id number] [place] [address]- 4986 Jan, [facility] [address] [id number] [place] [address] Dec, [facility] [address] [id number] [place] [address] Dec, [facility] [address] [id number] [place] [address] Dec, [facility] [address] [id number] [place] [address] Dec, [facility] [address] [id number] [place] [address] Nov, UNKNOWN Nov, [facility] [address] [id number], [place] [address] October, [facility] [place] [facility] [address] [id number] [place] [address] 14 Sep, 2014 [facility] [place] [facility] [address] [id number] [place] [address] Sep, [facility] [place] [facility] [address] [id number], [place] [address] Aug, [facility] [place] [facility] [address] [id number], [place] [address] Aug, [facility] [place] [facility] [address] [id number] [place] [address] Jul, [facility] [place] [facility] [address] [id number] [place] [address] Jul, [facility] [place] [facility] [address] [id number] [place] [address] Jul, [facility] [place] [facility] [address] [id number] [place] [address] Jul, [facility] [place] [facility] [address] [id number] [place] [address] 99[address] Jul, [facility] [place] [facility] [address] [id number] [place] [address] 395[address] Jun, [facility] [place] [facility] [address] [id number] [place] [address] 7[address] Jun, [facility] [place] [facility] [address] [id number] [place] [address] 6799 Jun, [facility] [place] [facility] [address] [id number] [place] [address] 6[address] Jun, [facility] [place] [facility] [address] [id number] [place] [address] 3272 Jun, [facility] [place] [facility] [address] [id number] [place] [address]- 9042 Jun, [facility] [place] [facility] [address] [id number] [place] [address] 1918 Jun, [facility] [place] [facility] [address] [id number] [place] [address]- 0970 Jun, [facility] [place] [facility] [address] [id number] [place] [address]- 1505 Jun, [facility] [place] [facility] [address] [id number] [place] [address]- 9662 Jun, [facility] [place] [facility] [address] [id number] [place] [address]- 4468 Jun, [facility] [place] [facility] [address] [id number] [place] [address]- 1705 Jun, [facility] [place] [facility] [address] [id number] [place] [address]- 0360 Jun, [facility] [place] [facility] [address] [id number] [place] [address]- 4920 Jun, [facility] [address] [id number] [place] [address]- 8702 Jun, [facility] [place] [facility] [address] [id number] [place] [address]- 8030 Jun, [facility] [address] [id number] [place] [address]- 1196 Jun, [facility] [address] [id number] [place] [address]- 1378 Jun, [facility] [place] [facility] [address] [id number] [place] [address]- 1759 May, [facility] [place] [facility] [address] [id number] [place] [address]- 0555 May, [facility] [place] [facility] [address] [id number] [place] [address]- 0115 May, [facility] [place] [facility] [address] [id number] [place] [address]- 7041 30 May, 2014 [facility] [place] [facility] [address] [id number] [place] [address]- 5448 May, [facility] [place] [facility] [address] [id number] [place] [address]- 7430 May, [facility] [place] [facility] [address] [id number] [place] [address]- 2756 May, [facility] [place] [facility] [address] [id number], [place] [address] 8[address] May, [facility] [address] [id number] [place] [address]- 9398 May, [facility] [address] [facility] [place] [id number] May, [facility] [place] [facility] [address] [id number] [place] [address]- 9081 May, [facility] [place] [facility] [address] [id number] [place] [address]- 7768 May, [facility] [place] [facility] [address] [id number] [place] [address]- 8422 May, [facility] [place] [facility] [address] [id number] [place] [address]- 0381 Apr, [facility] [place] [facility] [address] [id number] [place] [address]- 1372 Apr, [facility] [place] [facility] [address] [id number], [place] [address]- 6743 Apr, [facility] [place] [facility] [address] [id number] [place] [address]- 5343 Apr, [facility] [place] [facility] [address] [id number], [place] [address] 35[address] Apr, [facility] [place] [facility] [address] [id number], [place] [address]- 8831 Apr, [facility] [place] [facility] [address] [id number], [place] [address]- 9787 Mar, [facility] [place] [facility] [address] [id number] [place] [address]- 3552 Mar, [facility] [place] [facility] [address] [id number], [place] [address]- 0665 Mar, [facility] [place] [facility] [address] [id number], [place] [address]- 3299 Mar, [facility] [place] [facility] [address] [id number] [place] [address]- 2042 08 Mar, 2014 [facility] [address] [id number] [place] [address]- 3901 Mar, [facility] [place] [facility] [address] [id number] [place] [address]- 2277 24 Feb, 2014 [facility] [place] [facility] [address] [id number] [place] [address]- 1733 24 Feb, 2014 [facility] [place] [facility] [address] [id number] [place] [address]- 1988 Feb, [facility] [place] [facility] [address] [id number] [place] [address]- 1675 Feb, [facility] [place] [facility] [address] [id number] [place] [address]- 8668 Feb, [facility] [place] [facility] [address] [id number] [place] [address]- 2209 Feb, [facility] [place] [facility] [address] [id number] [place] [address]- 5843 Feb, [facility] [place] [facility] [address] [id number] [place] [address]- 8147 Feb, [facility] [place] [facility] [address] [id number] [place] [address]- 1687 Feb, [facility] [place] [facility] [address] [id number] [place] [address]- 5466 Feb, [facility] [address] [place] [id number] Feb, [facility] [place] [facility] [address] [id number] [place] [address] 7197 Feb, [facility] [place] [facility] [address] [id number] [place] [address]- 7283 Jan, [facility] [place] [facility] [address] [id number] [place] [address]- 0066 Jan, [facility] [place] [facility] [address] [id number] [place] [address]- 5186 Dec, 2013 [facility] [place] [facility] [address] [id number] [place] [address]- 7966 Dec, 2013 [facility] [place] [facility] [address] [id number] [place] [address]- 7636 Dec, 2013 [facility] [place] [facility] [address] [id number] [place] [address]- 8452 Dec, 2013 [facility] [place] [facility] [address] [id number] [place] [address]- 4350 Dec, 2013 [facility] [place] [facility] [address] [id number] [place] [address]- 9596 Dec, 2013 [facility] [place] [facility] [address] [id number] [place] [address]- 1558 Dec, 2013 [facility] [place] [facility] [address] [id number] [place] [address]- 7551 Dec, 2013 [facility] [place] [facility] [address] [id number] [place] [address]- 8216 Dec, [facility] [place] [facility] [address] [id number] [place] [address]- 9999 Dec, [facility] [place] [facility] [address] [id number] [place] [address]- 9852 Nov, [facility] [place] [facility] [address] [id number] [place] [address]- 1640 Nov, [facility] [place] [facility] [address] [id number] [place] [address]- 3118 Nov, [facility] [place] [facility] [address] [id number] [place] [address]- 7968 Nov, [facility] [place] [facility] [address] [id number] [place] [address]- 2520 Nov, [facility] [place] [facility] [address] [id number] [id number] [address] Nov, [facility] [place] [facility] [address] [id number] [place] [address]- 3101 Nov, [facility] [place] [facility] [address] [id number] [place] [address]- 3948 Nov, [facility] [place] [facility] [address] [id number] [place] [address]- 2352 Nov, [facility] [place] [facility] [address] [id number] [place] [address]- 9279 Nov, [facility] [place] [facility] [address] [id number] [place] [address]- 3823 Nov, [facility] [place] [facility] [address] [id number] [place] [address]- 2603 Nov, [facility] [place] [facility] [address] [id number] [place] [address]- 0837 Nov, [facility] [place] [facility] [address] [id number] [place] [address]- 1104 Nov, [facility] [place] [facility] [address] [id number] [place] [address]- 0122 October, [facility] [place] [facility] [address] [id number] [place] [address]- 0945 October, [facility] [place] [facility] [address] [id number] [place] [address]- 5704 October, [facility] [place] [facility] [address] [id number] [place] [address]- 2050 October, [facility] [place] [facility] [address] [id number] [place] [address]- 5005 October, [facility] [place] [facility] [address] [id number] [place] [address]- 2593 October, [facility] [place] [facility] [address] [id number] [place] [address]- 3860 October, [facility] [place] [facility] [address] [id number] [place] [address]- 8004 October, [facility] [address] [id number] [place] [address]- 8852 October, [facility] [place] [facility] [address] [id number] [place] [address]- 0332 October, [facility] [place] [facility] [address] [id number] [place] [address]- 9534 Sep, [facility] [place] [facility] [address] [id number] [place] [address]- 0670 Sep, [facility] [place] [facility] [address] [id number] [place] [address]- 7266 Sep, [facility] [place] [facility] [address] [id number] [place] [address]- 0228 Sep, [facility] [place] [facility] [address] [id number] [place] [address]- 2256 Sep, [facility] [place] [facility] [address] [id number] [place] [address]- 8290 Sep, [facility] [place] [facility] [address] [id number] [place] [address]- 6558 Sep, [facility] [place] [facility] [address] [id number] [place] [address]- 9195 Sep, [facility] [place] [facility] [address] [id number] [place] [address]- 6196 Sep, [facility] [place] [facility] [address] [id number] [place] [address]- 9278 Sep, [facility] [place] [facility] [address] [id number] [place] [address]- 6471 Aug, [facility] [place] [facility] [address] [id number] [place] [address]- 4234 Aug, [facility] [place] [facility] [address] [id number] [place] [address]- 0468 Aug, [facility] [place] [facility] [address] [id number] [place] [address]- 3133 10 Aug, 2013 [facility] [place] [facility] [address] [id number] [place] [address]- 5414 06 Aug, 2013 [facility] [place] [facility] [address] [id number] [place] [address]- 9506 06 Aug, 2013 [facility] [place] [facility] [address] [id number] [place] [address]- 1980 05 Aug, 2013 [facility] [place] [facility] [address] [id number] [place] [address]- 4952 Aug, [facility] [place] [facility] [address] [id number] [place] [address]- 9005 Aug, [facility] [place] [facility] [address] [id number] [place] [address]- 5696 Jul, [facility] [place] [facility] [address] [id number] [place] [address]- 5258 Jul, [facility] [place] [facility] [address] [id number] [place] [address]- 1972 Jul, [facility] [place] [facility] [address] [id number] [place] [address]- 1683 Jul, [facility] [place] [facility] [address] [id number] [place] [address]- 5997 Jul, [facility] [place] [facility] [address] [id number] [place] [address]- 4560 Jul, [facility] [place] [facility] [address] [id number] [place] [address]- 2179 Jul, [facility] [place] [facility] [address] [id number] [place] [address]- 2906 Jul, [facility] [place] [facility] [address] [id number] [place] [address]- 6097 Jul, [facility] [place] [facility] [address] [id number] [place] [address]- 0013 17 Jul, 2013 [facility] [place] [facility] [address] [id number] [place] [address]- 8386 Jul, [facility] [place] [facility] [address] [id number] [place] [address]- 4336 Jul, [facility] [place] [facility] [address] [id number] [place] [address]- 2156 Jul, 2013 [facility] [place] [facility] [address] [id number] [place] [address]- 5296 Jul, [facility] [place] [facility] [address] [id number] [place] [address]- 7346 Jul, [facility] [place] [facility] [address] [id number] [place] [address]- 4301 Jul, [facility] [place] [facility] [address] [id number] [place] [address]- 9280 Jun, [facility] [place] [facility] [address] [id number] [place] [address]- 6256 Jun, [facility] [place] [facility] [address] [id number] [place] [address]- 1276 Jun, [facility] [place] [facility] [address] [id number] [place] [address]- 0838 Jun, [facility] [place] [facility] [address] [id number] [place] [address]- 4086 Jun, [facility] [place] [facility] [address] [id number] [place] [address]- 3389 Jun, [facility] [place] [facility] [address] [id number] [place] [address]- 1986 May, [facility] [place] [facility] [address] [id number] [place] [address]- 3906 May, [facility] [place] [facility] [address] [id number] [place] [address]- 5046 May, [facility] [place] [facility] [address] [id number] [place] [address]- 9921 May, [facility] [place] [facility] [address] [id number] [place] [address]- 1457 Apr, [facility] [place] [facility] [address] [id number] [place] [address]- 2823 Apr, [facility] [place] [facility] [address] [id number] [place] [address]- 5313 Apr, [facility] [place] [facility] [address] [id number] [place] [address]- 0254 Apr, [facility] [place] [facility] [address] [id number] [place] [address]- 7520 Apr, [facility] [place] [facility] [address] [id number] [place] [address]- 3021 Apr, [facility] [place] [facility] [address] [id number] [place] [address]- 3240 Apr, [facility] [place] [facility] [address] [id number] [place] [address]- 6193 Apr, [facility] [place] [facility] [address] [id number], [place] [address]- 4962 Apr, [facility] [place] [facility] [address] [id number], [place] [address]- 8017 Apr, [facility] [place] [facility] [address] [id number], [place] [address]- 8537 Apr, [facility] [place] [facility] [address] [id number] [place] [address]- 3064 Apr, [facility] [place] [facility] [address] [id number], [place] [address]- 9811 Mar, [facility] [place] [facility] [address] [id number], [place] [address]- 5797 Mar, [facility] [place] [facility] [address] [id number] [place] [address]- 5093 16 Mar, 2013 [facility] [place] [facility] [address] [id number] [place] [address]- 1557 16 Mar, 2012 [facility] [place] [facility] [address] [id number] [place] [address]- 5672 15 Mar, 2013 [facility] [place] [facility] [address] [id number] [place] [address]- 2962 15 Mar, 2013 [facility] [place] [facility] [address] [id number] [place] [address]- 4720 27 Feb, 2012 [facility] [place] [facility] [address] [id number] [place] [address]- 3933 25 Feb, 2012 [facility] [place] [facility] [address] [id number] [place] [address]- 8419 25 Feb, 2012 [facility] [place] [facility] [address] [id number] [place] [address]- 3876 23 Feb, 2012 [facility] [place] [facility] [address] [id number] [place] [address]- 9303 17 Feb, 2012 [facility] [place] [facility] [address] [id number] [place] [address]- 7700 10 Feb, 2012 [facility] [place] [facility] [address] [id number] [place] [address]- 4518 04 Feb, 2013 [facility] [place] [facility] [address] [id number] [place] [address]- 2486 30 Jan, 2013 [facility] [place] [facility] [address] [id number] [place] [address]- 2542 20 Jan, 2013 [facility] [place] [facility] [address] [id number] [place] [address]- 2425 15 Jan, 2013 [facility] [place] [facility] [address] [id number] [place] [address]- 6605 14 Jan, 2013 [facility] [place] [facility] [address] [id number] [place] [address]- 0843 12 Jan, 2013 [facility] [place] [facility] [address] [id number] [place] [address]- 4292 Jan, [facility] [place] [facility] [address] [id number] [place] [address]- 3521 Jan, [facility] [place] [facility] [address] [id number] [place] [address]- 9096 Dec, [facility] [place] [facility] [address] [id number] [place] [address]- 4589 Dec, [facility] [place] [facility] [address] [id number] [place] [address]- 4154 Dec, [facility] [place] [facility] [address] [id number] [place] [address]- 1510 Dec, [facility] [place] [facility] [address] [id number] [place] [address]- 7909 Dec, [facility] [place] [facility] [address] [id number] [place] [address]- 5389 Dec, [facility] [place] [facility] [address] [id number] [place] [address]- 4077 Nov, [facility] [place] [facility] [address] [id number] [place] [address]- 8175 Nov, [facility] [place] [facility] [address] [id number] [place] [address]- 3486 Nov, [facility] [place] [facility] [address] [id number] [place] [address]- 8842 Nov, [facility] [place] [facility] [address] [id number] [place] [address]- 3960 October, [facility] [place] [facility] [address] [id number] [place] [address]- 1679 October, [facility] [place] [facility] [address] [id number] [place] [address]- 1136 October, [facility] [place] [facility] [address] [id number] [place] [address]- 4489 October, [facility] [address] [id number] [place] [address]- 1978 30 Sep, 2012 [facility] [place] [facility] [address] [id number] [place] [address]- 4190 Sep, [facility] [place] [facility] [address] [id number] [place] [address]- 6603 16 Sep, 2012 [facility] [place] [facility] [address] [id number] [place] [address]- 2792 Sep, [facility] [place] [facility] [address] [id number] [place] [address]- 5580 Sep, [facility] [place] [facility] [address] [id number] [place] [address]- 0490 Sep, [facility] [place] [facility] [address] [id number] [place] [address]- 0709 Sep, [facility] [place] [facility] [address] [id number] [place] [address]- 6110 Sep, [facility] [place] [facility] [address] [id number] [place] [address]- 1732 Aug, [facility] [place] [facility] [address] [id number] [place] [address]- 5358 Aug, [facility] [place] [facility] [address] [id number], [place] [address] 05 Aug, 2012 [facility] [place] [facility] [address] [id number], [place] [address] 18 Jul, 2012 [facility] [place] [facility] [address] [id number] [place] [address] 08 Jul, 2012 [facility] [place] [facility] [address] [id number] [place] [address] 07 Jul, 2012 [facility] [place] [facility] [address] [id number] [place] [address] 06 Jul, 2012 [facility] [place] [facility] [address] [id number] [place] [address] Jul, [facility] [address] [id number] [place] [address] Jun, [facility] [place] [facility] [address] [id number] [place] [address] Jun, [facility] [address] [id number] [place] [address] Jun, [facility] [place] [facility] [address] [id number] [place] [address] May, [facility] [address] [id number] [place] [address] May, [facility] [address] [id number] [place] [address] May, [facility] [address] [id number] [place] [address] May, [facility] [address] [id number] [place] [address] May, [facility] [address] [id number] [place] [address] May, [facility] [address] [id number] [place] [address] May, [facility] [place] [facility] [address] [id number] [place] [address] Apr, [facility] [place] [facility] [address] [id number] [place] [address] Apr, [facility] [place] [facility] [address] [id number] [place] [address] Apr, [facility] [place] [facility] [address] [id number] [place] [address] Apr, [facility] [place] [facility] [address] [id number] [place] [address] Apr, [facility] [place] [facility] [address] [id number] [place] [address] Apr, [facility] [place] [facility] [address] [id number] [place] [address] Apr, [facility] [place] [facility] [address] [id number] [place] [address] Apr, [facility] [place] [facility] [address] [id number] [place] [address] Apr, [facility] [place] [facility] [address] [id number] [place] [address] Apr, [facility] [place] [facility] [address] [id number] [place] [address]196 Apr, [facility] [place] [facility] [address] [id number] [place] [address] Mar, [facility] [place] [facility] [address] [id number], [place] [address] Mar, [facility] [place] [facility] [address] [id number] [place] [address] Mar, [facility] [place] [facility] [address] [id number], [place] [address] Mar, [facility] [place] [facility] [address] [id number], [place] [address] Mar, [facility] [place] [facility] [address] [id number], [place] [address] Mar, [facility] [place] [facility] [address] [id number], [place] [address] Mar, [facility] [place] [facility] [address] [id number], [place] [address] Mar, [facility] [place] [facility] [address] [id number], [place] [address] 16 Mar, 2012 [facility] [place] [facility] [address] [id number] [place] [address] 16 Mar, 2012 [facility] [place] [facility] [address] [id number] [place] [address]- 9469 04 Mar, 2012 [facility] [place] [facility] [address] [id number] [place] [address] 2011 [facility] [place] [facility] [address] [id number] [place] [address]36 27 Sep, 2011 [facility] [place] [facility] [address] [id number] [place] [address] 27 Sep, 2011 [facility] [place] [facility] [address] [id number] [place] [address]- 47[address] 26 Feb, 2011 [facility] [place] [facility] [address] [id number] [place] [address]- 1217 24 Feb, 2011 [facility] [place] [facility] [address] [id number] [place] [address]- [address] 19 Feb, 2011 [facility] [place] [facility] [address] [id number] [place] [address]- [address]161 18 Feb, 2012 [facility] [place] [facility] [address] [id number] [place] [address] 1314 18 Feb, 2012 [facility] [place] [facility] [address] [id number] [place] [address] 8096 18 Feb, 2012 [facility] [place] [facility] [address] [id number] [place] [address]- [address]64 30 Jan, 2012 [facility] [place] [facility] [address] [id number] [place] [address] Jan, [facility] [place] [facility] [address] [id number] [place] [address] Jan, [facility] [place] [facility] [address] [id number] [place] [address] 99[address] Jan, [facility] [place] [facility] [address] [facility] [id number] [place] [address]- [address] Dec, [facility] [place] [facility] [address] [id number] [place] [address] Dec, [facility] [place] [facility] [address] [id number] [place] [address]- [address] Dec, [facility] [place] [facility] [address] [id number] [place] [address]- [address] Dec, [facility] [place] [facility] [address] [id number] [place] [address]- [address] Dec, [facility] [place] [facility] [address] [id number] [place] [address]- [address] Dec, [facility] [place] [facility] [address] [id number] [place] [address]- 1636 Dec, [facility] [place] [facility] [address] [id number] [place] [address]- 8681 Dec, [facility] [place] [facility] [address] [id number] [place] [address]- 1696 Dec, [facility] [place] [facility] [address] [id number] [place] [address] Dec, [facility] [place] [facility] [address] [id number] [place] [address]- [address] Dec, [facility] [place] [facility] [address] [id number] [place] [address]- [address] Dec, [facility] [place] [facility] [address] [id number] [place] [address]- [address]272 Dec, [facility] [place] [facility] [address] [id number] [place] [address]- 8165 Dec, [facility] [place] [facility] [address] [id number] [place] [address]- 36[address] Nov, [facility] [place] [facility] [address] [id number] [place] [address]- 0[address] Nov, [facility] [place] [facility] [address] [id number] [place] [address]- 7533 Nov, [facility] [place] [facility] [address] [id number] [place] [address]- [address] Nov, [facility] [place] [facility] [address] [id number] [place] [address]- 3430 Nov, [facility] [place] [facility] [address] [id number] [place] [address]- 6[address] Nov, [facility] [place] [facility] [address] [id number] [place] [address] October, [facility] [place] [facility] [address] [id number] [place] [address] October, [facility] [place] [facility] [address] [id number] [place] [address] October, [facility] [place] [facility] [address] [id number] [place] [address] October, [facility] [place] [facility] [address] [id number] [place] [address] Sep, [facility] [place] [facility] [address] [id number] [place] [address] 17 Sep, 2011 [facility] [place] [facility] [address] [id number] [place] [address] Sep, [facility] [place] [facility] [address] [id number] [place] [address] Sep, [facility] [place] [facility] [address] [id number] [place] [address] Sep, [facility] [place] [facility] [address] [id number] [place] [address] Aug, [facility] [place] [facility] [address] [id number] [place] [address] Aug, [facility] [place] [facility] [address] [id number] [place] [address] Aug, [facility] [place] [facility] [address] [id number] [place] [address] Aug, [facility] [address] [id number] [place] [address] Aug, [facility] [address] [id number] [place] [address] Aug, [facility] [address] [id number] [place] [address] Aug, [facility] [address] [id number] [place] [address] 16 Jul, 2011 [facility] [address] [facility] [id number] [place] [address] 16 Jul, 2011 [facility] [address] [facility] [id number] [place] [address] 15 Jul, 2011 [facility] [address] [facility] [id number] [place] [address] Jul, [facility] [address] [facility] [id number], [place] [address] Jun, [address] [id number] Jun, [facility] [address] [facility] [id number], [place] [address] Jun, [facility] [address] [facility] [id number], [place] [address] Jun, [facility] [address] [facility] [id number], [place] [address] Jun, [facility] [address] [facility] [id number], [place] [address] Jun, [facility] [address] [facility] [id number], [place] [address] Jun, [facility] [address] [facility] [id number], [place] [address] Jun, [facility] [place] [facility] [address] [id number] [place] [address] May, [facility] [place] [facility] [address] [id number] [place] [address] May, [facility] [place] [facility] [address] [id number] [place] [address] May, [facility] [place] [facility] [address] [id number] [place] [address] May, [facility] [place] [facility] [address] [id number] [place] [address] May, [facility] [place] [facility] [address] [id number] [place] [address] 4[address] May, [facility] [place] [facility] [address] [id number] [place] [address] May, [facility] [place] [facility] [address] [id number] [place] [address] Apr, [facility] [place] [facility] [address] [id number] [place] [address] Apr, [facility] [place] [facility] [address] [id number] [place] [address] 67[address] Apr, [facility] [place] [facility] [address] [id number] [place] [address] 69[address] Mar, [facility] [place] [facility] [address] [id number] [place] [address] 20 Mar, 2011 [facility] [place] [facility] [address] [id number] [place] [address] 8975 14 Mar, 2011 [facility] [place] [facility] [address] [id number] [place] [address] 6982 11 Mar, 2011 [facility] [place] [facility] [address] [id number] [place] [address] 10 Mar, 2011 [facility] [place] [facility] [address] [id number] [place] [address] 6533 10 Mar, 2011 [facility] [place] [facility] [address] [id number] [place] [address] 9798 10 Mar, 2011 [facility] [place] [facility] [address] [id number] [place] [address] 9854 11 Jan, 2011 [facility] [place] [facility] [address] [id number] [place] [address] 0338 27 May, 2010 [facility] [place] [facility] [address] [id number] [place] [address] 1705 21 May, 2010 [facility] [place] [facility] [address] [id number] [place] [address]- 6236 13 May, 2010 [facility] [place] [facility] [address] [id number] [place] [address]- 4366 13 May, 2010 [facility] [place] [facility] [address] [id number] [place] [address] 1220 May, [facility] [place] [facility] [address] [id number] [place] [address] 1510 06 May, 2010 [facility] [place] [facility] [address] [id number] [place] [address] 1165 29 Apr, 2010 [facility] [place] [facility] [address] [id number] [place] [address] 0838 26 Apr, 2010 [facility] [place] [facility] [address] [id number], [place] [address] 4426 19 Apr, 2010 [facility] [place] [facility] [address] [id number], [place] [address] 18 Apr, 2010 [facility] [place] [facility] [address] [id number] [place] [address] 2906 15 Apr, 2010 [facility] [place] [facility] [address] [id number], [place] [address] 9[address] 12 Apr, 2010 [facility] [place] [facility] [address] [id number], [place] [address] Apr, [facility] [place] [facility] [id number], [place] [address] Apr, [facility] [id number], [place] [address] Apr, [facility] [id number], [place] [address] Apr, [facility] [id number], [place] [address] Mar, [facility] [id number], [place] [address] 228[address] Mar, [facility] [id number] [place] [address] Mar, [facility] [id number], [place] [address] 1858 Mar, [facility] [id number] [place] [address] Mar, [facility] [id number], [place] [address] Dec, [facility] [id number], [place] [address] Nov, IMMUNIZATIONS No Known Immunizations SOCIAL HISTORY Never Assessed REASON FOR VISIT f/u [employer] PLAN OF CARE Activity Details Follow Up 6 Months Reason: VITAL SIGNS Height 62 in 2018-01-07 Weight 113.9 lbs 2018-01-07 BMI 20.83 kg/m2 2018-01-07 MEDICATIONS Medication Instructions Dosage Frequency Start Date End Date Duration Status Acetaminophen 650 MG Orally every 6 hrs 1 tablet as needed 6h Active Nitro-Dur 0.2 MG/HR Transdermal Once a day 1 patch to skin remove after 12 hours 24h Active Tussin Cough DM 100-10 MG/5ML Orally every 6 hrs as needed for cough 10 ml as needed Active Fentanyl 75 MCG/HR Transdermal every 72 hours 1 patch to skin Nov, 30 days Active Fexofenadine HCl 180 MG Orally Once a day 1 tablet 24h Active Citalopram Hydrobromide 10 mg Orally Once a day 1 tablet 24h 30 days Active Nitroglycerin 0.2 MG/HR APPLY ONE PATCH TRANSDERMALLY DAILY AND REMOVE AT BEDTIME 30 Active Topiramate 100 MG TAKE 1 TABLET BY MOUTH TWICE DAILY 30 Active Gabapentin 400 MG TAKE 1 CAPSULE BY MOUTH AT BEDTIME 30 Active Rosuvastatin Calcium 10 MG TAKE ONE TABLET BY MOUTH EVERY NIGHT AT BEDTIME 30 Active Hydrocortisone 2.5 % APPLY TO DRY SKIN ONCE DAILY NEEDED 30 Active Zofran ODT 4 mg Orally every 8 hrs 1 tablet on the tongue and allow to dissolve 8h Active Vitamin D (Ergocalciferol) 75476 UNIT Orally 2 times a day every 7 days 1 capsule Active Fioricet 50-300-40 MG Orally every 6 hrs prn 1 capsule as needed Active Bisacodyl 10 mg Rectal Once a day prn 1 suppository as needed Active Famotidine 20 mg Orally Once a day 1 tablet at bedtime 24h October, 90 days Active Melatonin 5 mg Orally at bedtime 1 tablet 30 days Active Fluticasone Propionate 50 MCG/ACT INSTILL 1 SPRAY IN EACH NOSTRIL TWICE DAILY 30 Active Sodium Bicarbonate 650 MG Orally Once a day 1 tablet 24h Active Clorazepate Dipotassium 3.75 MG Orally Twice a day 1 tablets 12h 28 Active Ibuprofen 200 mg Orally every 6 hours as needed for headache 2 tablets Active Coumadin 1 MG Orally 1 mg MWF, 1.5mg other days 1 tablet Active Restasis 0.05 % 1 DROP EACH EYE TWICE DAILY 30 Active Metoprolol Tartrate 50 MG Orally Twice a day TAKE 1 TABLET BY MOUTH TWICE DAILY 12h Active Refresh Liquigel 1 % Ophthalmic 4 times a day 1 drop into affected eye as needed 6h Active Phenytoin Sodium Extended 100 MG TAKE 1 CAPSULE BY MOUTH TWICE DAILY 30 Active MiraLax Orally twice a day 17 GM 12h Active Hydrocortisone 2.5 % Externally every 24 hours as needed for dry skin 1 application to affected area Active Refresh Tears 0.5 % 1 drop into affected eye as needed Active Lamotrigine 100 MG TAKE 1 TABLET BY MOUTH TWICE DAILY 30 Active Lipitor 40 mg Orally Once a day 1 tablet 24h Active RESULTS No Results PROCEDURES Procedure Date Ordered Result Body Site [facility] VISIT ESTABLISHED PATIENT January 07, 2018 INSTRUCTIONS MEDICATIONS ADMINISTERED No Known Medications [...] surgery and skin graft, cholecysectomy Hospitalization History [facility] 12[facility]2016 [facility]2017 Hospitalization History [facility] 01/2018
--- OUTSIDE RECORDS SUMMARY | 2018-07-05 15:07 | XMS REPORT ---
Author Author NAHOMY BETH Organization [facility] Address [address] [place] [address] Care Team Providers Care Investigation Division Captain Name Role Phone NAHOMY BETH Unavailable PROBLEMS Type Condition ICD9-CM Code [id number] Code Onset Dates Condition Status SNOMED Code Problem Anemia, unspecified type D64.9 Active 662054161 Problem Personality disorder F60.9 Active 96494192 Problem Factitious disorder imposed on self, recurrent episode F68.10 Active 04267103 Problem Ventral hernia without obstruction or gangrene K43.9 Active 159193535 Problem Allergic state, subsequent encounter T78.40XD Active 390429771 Problem Anxiety F41.9 Active 62186385 Problem Age-related osteoporosis without current pathological fracture M81.0 Active 45372548 Problem Unspecified psychosis not due to a substance or known physiological condition F29 Active 70079330 Problem Iron deficiency anemia, unspecified iron deficiency anemia type D50.9 Active 48175620 Problem History of CVA with residual deficit I69.30 Active 426015845 Problem Seizure disorder G40.909 Active 424155595 Problem Perennial allergic rhinitis, unspecified allergic rhinitis trigger J30.89 Active 898549533 Problem Chronic kidney disease, unspecified stage N18.9 Active 166713910 Problem Back pain M54.9 Active 104724274 Problem Gastroesophageal reflux disease without esophagitis K21.9 Active 305398504 Problem Insomnia, unspecified type G47.00 Active 169350251 Problem History of colon polyps Z86.010 Active 409248209 ALLERGIES No Information ENCOUNTERS Encounter Location Date Diagnosis [facility] [id number] [address] Mar, [facility] [id number] [address] Feb, [facility] [id number] [place] [address] 87213- 7004 05 Feb, 2018 Back pain M54.9 [facility] [id number] [place] [address] 59515- 0621 Jan, Unspecified psychosis not due to a substance or known physiological condition F29 ; Personality disorder F60.9 and Factitious disorder imposed on self, recurrent episode F68.10 [facility] [id number] [place] [address] 83525- 6972 Jan, [facility] [id number] [place] [address] 48848- 1414 Jan, Back pain M54.9 and Seizure disorder G40.909 [facility] [id number] [place] [address] 38680- 5495 Jan, Back pain M54.9 [facility] [id number] [place] [address] 62754- 5594 17 Jan, 2018 Back pain M54.9 [facility] [id number] [place] [address] 08922- 9403 Jan, [facility] [id number] [place] [address] 51623- 2791 Jan, Unspecified psychosis not due to a substance or known physiological condition F29 ; Personality disorder F60.9 and Factitious disorder imposed on self, recurrent episode F68.10 [facility] [id number] [place] [address] 15065- 5874 Dec, Back pain M54.9 ; Seizure disorder G40.909 ; Ventral hernia without obstruction or gangrene K43.9 and History of CVA with residual deficit I69.30 [facility] [id number] [place] [address] 73069- 2288 Dec, Unspecified psychosis not due to a substance or known physiological condition F29 ; Personality disorder F60.9 and Factitious disorder imposed on self, recurrent episode F68.10 [facility] [id number] [address] 0258 Dec, [facility] [id number] [place] [address] 26271- 7360 Dec, Back pain M54.9 [facility] [id number], [place] [address] 6874 Dec, Factitious disorder imposed on self, recurrent episode F68.10 ; Personality disorder F60.9 ; Insomnia, unspecified type G47.00 and Anxiety F41.9 [facility] [address] [place] [address] 50411- 0198 Nov, Unspecified psychosis not due to a substance or known physiological condition F29 ; Personality disorder F60.9 and Factitious disorder imposed on self, recurrent episode F68.10 [facility] [id number] [address] 8398 Nov, Back pain M54.9 [facility] [address] [place] [address] 91332- 0696 Nov, Unspecified psychosis not due to a substance or known physiological condition F29 ; Personality disorder F60.9 and Factitious disorder imposed on self, recurrent episode F68.10 [facility] [address], [place] [address] 9548 October, [facility] [address], [place] [address] 0007 October, [facility] [id number] [place] [address] 37512- 1319 October, Unspecified psychosis not due to a substance or known physiological condition F29 ; Personality disorder F60.9 and Factitious disorder imposed on self, recurrent episode F68.10 [facility] [address], [place] [address]- 8282 October, Back pain M54.9 [facility] [address], [place] [address] 9225 October, Seizure disorder G40.909 ; Back pain M54.9 and Allergic state, subsequent encounter T78.40XD [facility] [id number] [place] [address] 95957- 1128 October, [facility] [id number] [place] [address] 31467- 7210 Sep, Back pain M54.9 [facility] [id number] [place] [address] 37748- 4294 Sep, Unspecified psychosis not due to a substance or known physiological condition F29 ; Personality disorder F60.9 and Factitious disorder imposed on self, recurrent episode F68.10 [place] [id number] [place] [address] 55647- 4714 Sep, [facility] [id number] [place] [address] 23001- 6759 Sep, [facility] [facility] [id number] [place] [address] 08412- 0527 Sep, [facility] [id number] [place] [address] 10598- 0529 Sep, [facility] [id number] [place] [address] 48248- 9237 Aug, [facility] [id number] [place] [address] 62901- 7162 Aug, Back pain M54.9 [facility] [id number] [place] [address] 46357- 4495 15 Aug, 2017 Factitious disorder imposed on self, recurrent episode F68.10 ; Personality disorder F60.9 ; Insomnia, unspecified type G47.00 and Anxiety F41.9 [facility] [address] [place] [address] 23596- 7756 08 Aug, 2017 Back pain M54.9 ; Iron deficiency anemia, unspecified iron deficiency anemia type D50.9 ; Chronic kidney disease, unspecified stage N18.9 and Breast cancer screening Z12.31 [facility] [address] [id number] [address] Jul, Back pain M54.9 [facility] [id number] [address] Jul, [facility] [id number] [address] Jul, [facility] [id number] [address] Jun, Back pain M54.9 [facility] [address] [id number] [address] Jun, [facility] [id number] [address] Jun, Back pain M54.9 [facility] [id number], [place] [address] 5067 Jun, Back pain M54.9 ; Seizure disorder G40.909 and Age-related osteoporosis without current pathological fracture M81.0 [facility] [address] [id number] [id number] May, [facility] [id number] [address]507 May, Back pain M54.9 [facility] [id number] [address] 3721 Apr, Back pain M54.9 ; Encounter for immunization Z23 ; Gastroesophageal reflux disease without esophagitis K21.9 ; Age-related osteoporosis without current pathological fracture M81.0 and Chronic pruritus L29.9 [facility] [id number] [address] [address]797 Apr, History of CVA with residual deficit I69.30 [facility] [id number] [address] 7515 Apr, Factitious disorder imposed on self, recurrent episode F68.10 and Personality disorder F60.9 [facility] [id number] [id number] 08 Apr, 2017 Back pain M54.9 [facility] [address] [place] [address] 66056- 6928 Mar, Factitious disorder imposed on self, recurrent episode F68.10 [facility] [address] [place] [address] 76355- 1552 Mar, [facility] [id number] [place] [address] [id number] Mar, [facility] [id number] [place] [address] [id number] Mar, Back pain M54.9 [facility] [address] [place] [address] 64285- 7645 Mar, Back pain M54.9 ; Seizure disorder G40.909 and Age-related osteoporosis without current pathological fracture M81.0 [facility] [address] [place] [address] 16148- 1081 Feb, History of CVA with residual deficit I69.30 [facility] [address] [place] [address] 98267- 3711 Feb, Factitious disorder imposed on self, recurrent episode F68.10 and Personality disorder F60.9 [facility] [address] [place] [address] 54545- 1004 15 Feb, 2017 Back pain M54.9 [facility] [address] [place] [address] 57044- 5846 Feb, [facility] [address] [place] [address] 32300- 3353 Jan, [facility] [address] [id number] Jan, Age- related osteoporosis without current pathological fracture M81.0 and Allergic state, subsequent encounter T78.40XD [facility] [facility] [address], [place] [address]- 8552 Jan, Factitious disorder imposed on self, recurrent episode F68.10 and Personality disorder F60.9 [facility] [address], [place] [address]- 2231 Dec, Back pain M54.9 [facility] [address], [place] [address]- 1990 Dec, Personality disorder F60.9 and Factitious disorder imposed on self, recurrent episode F68.10 [facility] [id number] [address] Dec, Back pain M54.9 [facility] [id number] [place] [address] [id number] Dec, [facility] [id number] [place] [address] [id number] Dec, [facility] [address], [place] [address]- 0582 Dec, [facility] [address] [place] [address] 66857- 8429 Nov, [facility] [address] [place] [address] 84065- 6450 Nov, Back pain M54.9 ; Anemia, unspecified type D64.9 and History of colon polyps Z86.010 [facility] [address], [place] [address]- 3399 Nov, Back pain M54.9 [facility] [id number] [address] October, Back pain M54.9 [facility] [address] [id number] October, Back pain M54.9 and Gastroesophageal reflux disease without esophagitis K21.9 [facility] [id number] [address] Sep, [facility] [address] [facility] [id number], [place] [address]- 4567 Sep, [facility] [address], [place] [address]- 9119 Sep, [facility] [address] [facility] [id number], [place] [address]- 2802 Sep, [facility] [address], [place] [address]- 0374 Sep, [facility] [id number], [place] [address]- 8219 Sep, Seizure disorder G40.909 [facility] [address], [place] [address]- 3708 Sep, Back pain M54.9 [facility] [address], [place] [address]- 0103 Sep, [facility] [address], [place] [address]- 3603 Aug, Back pain M54.9 [facility] [address], [place] [address]- 8084 Aug, Seizure disorder G40.909 [facility] [id number] [id number] Aug, [facility] [id number], [place] [address] 16 Aug, 2016 Back pain M54.9 [facility] [id number] [id number] Aug, Back pain M54.9 [facility] [id number] [address] Aug, Back pain M54.9 [facility] [address] [address] Jul, Weakness R53.1 [facility] [address], [place] [address]- 7146 Jul, Seizure disorder G40.909 [facility] [address] [place] [address] 57274- 5846 Jul, [facility] [address] [place] [address] 19277- 6324 Jul, Breast cancer screening Z12.39 [facility] [id number] [place] [address] 09659- 4621 Jul, [facility] [address] [place] [address] 22158- 1049 Jul, [facility] [id number] [place] [address] 92285- 7467 Jul, [facility] [address] [place] [address] 53527- 1945 Jul, Seizure disorder G40.909 ; Fatigue, unspecified type R53.83 ; Perennial allergic rhinitis, unspecified allergic rhinitis trigger J30.89 and Chronic kidney disease, unspecified stage N18.9 [facility] [address] [place] [address] 14974- 2415 Jul, [facility] [address] [place] [address] 01343- 9801 Jul, Seizure disorder G40.909 [facility] [address] [place] [address] 00503- 1719 Jun, [facility] [address] [place] [address] 99030- 7797 Jun, [facility] [address] [id number] Jun, Perennial allergic rhinitis, unspecified allergic rhinitis trigger J30.89 [facility] [id number] [place] [address] [id number] Jun, [facility] [address] [place] [address] 07109- 6039 Jun, Seizure disorder G40.909 [facility] [id number] [place] [address] [id number] Jun, [facility] [id number] [place] [address] [id number] May, [facility] [id number] [place] [address] 36844- 7072 May, [facility] [id number] [place] [address] 78307- 9088 May, [facility] [id number] [place] [address] 51263- 6358 May, [facility] [id number] [place] [address] 34214- 5016 May, History of CVA with residual deficit I69.30 [facility] [id number] [place] [address] 38946- 7605 May, [facility] [id number] [place] [address] 30670- 2810 May, [facility] [id number] [place] [address] 45559- 5527 May, [facility] [id number] [place] [address] 96673- 4089 May, Seizure disorder G40.909 [facility] [address] [place] [address] 39764- 1832 May, [facility] [address] [place] [address] May, Back pain M54.9 and Seizure disorder G40.909 [facility] [id number] [place] [address] 40585- 7647 Apr, [facility] [id number] [place] [address] 96900- 2464 Apr, Back pain M54.9 [facility] [id number], [place] [address]- 1759 Mar, [employer] [address] [place] [address] Mar, Insomnia, unspecified type G47.00 [facility] [address] [facility] [id number], [place] [address]- 0085 Mar, [facility] [address] [facility] [id number] [place] [address] 06587- 4456 Feb, [facility] [address] [facility] [id number] [place] [address] 76919- 7799 Feb, [facility] [id number] [place] [address] 07300- 3411 Feb, [facility] [id number] [place] [address] 08518- 0341 Jan, [facility] [id number] [place] [address] 49228- 4618 Jan, [employer] [address] [place] [address] Jan, Seizure disorder G40.909 and Back pain M54.9 [facility] [address] [place] [address] 20895- 5702 Dec, [facility] [address], [place] [address]- 0025 Dec, [facility] [address], [place] [address]- 1743 Dec, [facility] [id number], [place] [address]- 3485 Nov, [facility] [id number] [place] [address] 72634- 6826 Nov, [facility] [id number], [place] [address]- 9600 Nov, Back pain M54.9 [facility] [id number] [place] [address] 10272- 8360 October, [facility] [id number] [place] [address] 42481- 2577 October, Back pain M54.9 [facility] [id number] [place] [address] 71490- 6526 October, Seizure disorder G40.909 and B12 deficiency E53.8 [facility] [address] 38278- 2591 Sep, History of CVA with residual deficit I69.30 [facility] [address] 19012- 1130 Sep, [facility] [address] 21529- 1897 Sep, [facility] [id number] [place] [address] 13935- 8877 Sep, Back pain M54.9 [facility] [id number] [place] [address] 17921- 3683 Sep, Seizure disorder G40.909 [facility] [id number] [place] [address] 34019- 5468 Aug, Back pain M54.9 [facility] [id number] [place] [address] 47691- 5228 18 Aug, 2015 Seizure disorder G40.909 [facility] [id number] [place] [address] 35469- 8373 16 Aug, 2015 Back pain M54.9 [facility] [id number] [place] [address] 79134- 9149 14 Aug, 2015 Heart failure, unspecified I50.9 [facility] [id number] [place] [address] 44544- 8426 14 Aug, 2015 Medication monitoring encounter Z51.81 [facility] [address] 89059- 1336 Jul, [facility] [address], [place] [address]- 3554 Jul, Seizure disorder G40.909 [facility] [address]- 4583 05 Jul, 2015 Back pain M54.9 [facility] [address] [place] [address] 25619- 1123 Jun, [facility] [address] [place] [address] 15468- 5809 Jun, [facility] [id number] [place] [address] 43794- 2291 Jun, Mental status change R41.82 ; History of CVA with residual deficit I69.30 ; Back pain M54.9 and Seizure disorder G40.909 [facility] [address] [place] [address] 86245- 9375 Jun, [facility] [address], [place] [address]- 2727 May, [facility] [id number] [place] [address] 45637- 9598 Apr, [facility] [address] [place] [address] 93801- 0877 Apr, Medication monitoring encounter Z51.81 [facility] [address], [place] [address]- 3728 Mar, Vomiting R11.10 [facility] [address], [place] [address]- 0838 Mar, [facility] [address] [place] [address] 148010- 5502 18 Feb, 2015 [facility] [address], [place] [address]- 0600 10 Feb, 2015 UTI (urinary tract infection) 599.0 [facility] [place] [facility] [address] [id number] [place] [address]- 2846 Jan, [facility] [place] [facility] [address] [id number] [place] [address]- 4726 Jan, [facility] [place] [facility] [address] [id number] [place] [address]- 7863 Jan, [facility] [place] [facility] [address] [id number] [place] [address]- 1895 Dec, [facility] [place] [facility] [address] [id number] [place] [address]- 9817 Dec, [facility] [place] [facility] [address] [id number] [place] [address]- 7155 Dec, [facility] [place] [facility] [address] [id number] [place] [address]- 7617 Dec, [facility] [place] [facility] [address] [id number] [place] [address]- 6054 Nov, UNKNOWN Nov, [facility] [place] [facility] [address] [id number] [place] [address] October, [facility] [place] [facility] [address] [id number] [place] [address] Sep, [facility] [place] [facility] [address] [id number] [place] [address] Sep, [facility] [place] [facility] [address] [id number] [place] [address] Aug, [facility] [place] [facility] [address] [id number] [place] [address] Aug, [facility] [place] [facility] [address] [id number] [place] [address] Jul, [facility] [place] [facility] [address] [id number] [place] [address] Jul, [facility] [place] [facility] [address] [id number] [place] [address] 13 Jul, 2014 [facility] [address] [id number] [place] [address] Jul, [facility] [place] [facility] [address] [id number] [place] [address] Jul, [facility] [place] [facility] [address] [id number] [place] [address] Jun, [facility] [place] [facility] [address] [id number] [place] [address] Jun, [facility] [address] [id number] [place] [address] Jun, [facility] [place] [facility] [address] [id number] [place] [address] 2009 Jun, [facility] [place] [facility] [address] [id number] [place] [address] Jun, [facility] [address] [id number] [place] [address] Jun, [facility] [place] [facility] [address] [id number] [place] [address] Jun, [facility] [address] [id number] [place] [address] Jun, [facility] [place] [facility] [address] [id number] [place] [address] Jun, [facility] [place] [facility] [address] [id number] [place] [address] Jun, [facility] [place] [facility] [address] [id number] [place] [address] Jun, [facility] [place] [facility] [address] [id number] [place] [address] Jun, [facility] [place] [facility] [address] [id number] [place] [address] Jun, [facility] [address] [id number] [place] [address] Jun, [facility] [address] [id number] [place] [address] Jun, [facility] [place] [address] [id number] [place] [address] 9062 Jun, [facility] [place] [address] [id number] [place] [address] 2797 Jun, [facility] [place] [address] [id number] [place] [address] 3291 Jun, [facility] [place] [address] [id number] [place] [address] 2460 May, [facility] [address] [id number] [place] [address] May, [facility] [address] [id number] [place] [address] 6023 May, [facility] [address] [id number] [place] [address] May, [facility] [address] [id number] [place] [address] 0734 May, [facility] [address] [id number] [place] [address] 1686 May, [facility] [address] [id number] [place] [address]- 7986 16 May, 2014 [facility] [address] [id number] [place] [address]- 9484 15 May, 2014 [facility] [address] [id number] [place] [address] May, [facility] [address] [place] [id number] 04 May, 2014 [facility] [address] [id number] [place] [address]324 May, [facility] [place] [facility] [address] [id number] [place] [address]- 7134 May, [facility] [place] [facility] [address] [id number] [place] [address]- 7586 May, [facility] [place] [facility] [address] [facility] [id number] [place] [address]- 4608 Apr, [facility] [place] [facility] [address] [id number] [place] [address]- 6676 Apr, [facility] [place] [facility] [address] [id number] [place] [address]- 3537 Apr, [facility] [place] [facility] [address] [id number] [place] [address]- 8712 Apr, [facility] [place] [facility] [address] [id number] [place] [address]- 7931 Apr, [facility] [place] [facility] [address] [id number], [place] [address]- 480[address] Apr, [facility] [place] [facility] [address] [id number] [place] [address]- 0981 Mar, [facility] [place] [facility] [address] [id number] [place] [address]- 7754 Mar, [facility] [place] [facility] [address] [id number], [place] [address]- 1539 Mar, [facility] [place] [facility] [address] [id number], [place] [address]- 5155 Mar, [facility] [place] [facility] [address] [id number], [place] [address]- 65[address] Mar, [facility] [place] [facility] [address] [id number], [place] [address] 1345 Mar, [facility] [place] [facility] [address] [id number], [place] [address]- [address] Feb, [facility] [place] [facility] [address] [id number] [place] [address] 3017 24 Feb, 2013 [facility] [place] [facility] [address] [id number] [place] [address] 3726 Feb, [facility] [place] [facility] [address] [id number] [place] [address] 2546 Feb, [facility] [place] [facility] [address] [id number] [place] [address] 254 Feb, [facility] [place] [facility] [address] [id number] [place] [address] 2548 Feb, [facility] [place] [facility] [address] [id number] [place] [address]- 5755 Feb, [facility] [place] [facility] [address] [id number] [place] [address]- 2693 Feb, [facility] [place] [facility] [address] [id number] [place] [address]- 0214 Feb, [facility] [place] [address] [id number] [place] [address]- 2548 Feb, [facility] [address] [place] [id number] Feb, [facility] [address] [id number] [place] [address]- 8233 Feb, [facility] [place] [facility] [address] [id number] [place] [address]- 2094 Jan, [facility] [place] [facility] [address] [id number] [place] [address]- 2548 Jan, [facility] [place] [facility] [address] [id number] [place] [address]- 0207 Dec, [facility] [place] [facility] [address] [id number] [place] [address]- 4786 Dec, [facility] [place] [facility] [address] [id number] [place] [address]- 3799 Dec, [facility] [place] [facility] [address] [id number] [place] [address]- 7[address] Dec, 2013 [facility] [place] [facility] [address] [id number] [place] [address]- 2160 Dec, 2013 [facility] [place] [facility] [address] [id number] [place] [address]- 7946 Dec, 2013 [facility] [place] [facility] [address] [id number] [place] [address]- 2675 Dec, 2013 [facility] [place] [facility] [address] [id number] [place] [address]- 1396 Dec, 2013 [facility] [place] [facility] [address] [id number] [place] [address]- 4186 Dec, [facility] [place] [facility] [address] [id number] [place] [address]- 1298 Dec, [facility] [place] [facility] [address] [id number] [place] [address]- 0169 Nov, [facility] [place] [facility] [address] [id number] [place] [address]- 4583 Nov, [facility] [place] [facility] [address] [id number] [place] [address]- 2814 Nov, [facility] [place] [facility] [address] [id number] [place] [address]- 7501 Nov, [facility] [place] [facility] [address] [id number] [place] [address]- 9934 Nov, [facility] [place] [facility] [address] [id number] [place] [address]- 4960 Nov, [facility] [place] [facility] [address] [id number] [place] [address]- 7438 Nov, [facility] [place] [facility] [address] [id number] [place] [address]- 1346 Nov, [facility] [place] [facility] [address] [id number] [place] [address]- 3011 Nov, [facility] [place] [facility] [address] [id number] [place] [address]- 6129 Nov, [facility] [place] [facility] [address] [id number] [place] [address]- 4955 Nov, [facility] [place] [facility] [address] [id number] [place] [address]- 0447 Nov, [facility] [place] [facility] [address] [id number] [place] [address]- 2966 Nov, [facility] [place] [facility] [address] [id number] [place] [address]- 7903 Nov, [facility] [place] [facility] [address] [id number] [place] [address]- 1283 October, [facility] [place] [facility] [address] [id number] [place] [address]- 8839 October, [facility] [place] [facility] [address] [id number] [place] [address]- 1528 October, [facility] [place] [facility] [address] [id number] [place] [address]- 7897 October, [facility] [place] [facility] [address] [id number] [place] [address]- 4427 October, [facility] [place] [facility] [address] [id number] [place] [address]- 9507 October, [facility] [place] [facility] [address] [id number] [place] [address]- 4946 October, [facility] [place] [facility] [address] [id number] [place] [address]- 9225 October, [facility] [place] [facility] [address] [id number] [place] [address]- 0079 October, [facility] [place] [facility] [address] [id number] [place] [address]- 4941 October, [facility] [place] [facility] [address] [id number] [place] [address]- 1227 Sep, [facility] [place] [facility] [address] [id number] [place] [address]- 6300 29 Sep, 2013 [facility] [place] [facility] [address] [id number] [place] [address]- 7782 Sep, [facility] [place] [facility] [address] [id number] [place] [address]- 9576 Sep, [facility] [place] [facility] [address] [id number] [place] [address]- 3985 Sep, [facility] [place] [facility] [address] [id number] [place] [address]- 0383 Sep, [facility] [place] [facility] [address] [id number] [place] [address]- 6472 Sep, [facility] [place] [facility] [address] [id number] [place] [address]- 7098 Sep, [facility] [place] [facility] [address] [id number] [place] [address]- 0705 Sep, [facility] [place] [facility] [address] [id number] [place] [address]- 7430 Sep, [facility] [place] [facility] [address] [id number] [place] [address]- 3266 Aug, [facility] [place] [facility] [address] [id number] [place] [address]- 7031 Aug, [facility] [place] [facility] [address] [id number] [place] [address]- 6132 Aug, [facility] [place] [facility] [address] [id number] [place] [address]- 5473 Aug, [facility] [place] [facility] [address] [id number] [place] [address]- 9685 Aug, [facility] [place] [facility] [address] [id number] [place] Aug, [facility] [place] [facility] [address] [id number] [place] [address]- 0709 Aug, [facility] [place] [facility] [address] [id number] [place] [address]- 3245 Aug, [facility] [place] [facility] [address] [id number] [place] [address]- 9124 Aug, [facility] [place] [facility] [address] [id number] [place] [address]- 1900 Jul, [facility] [place] [facility] [address] [id number] [place] [address]- 5561 Jul, [facility] [place] [facility] [address] [id number] [place] [address]- 4346 Jul, [facility] [place] [facility] [address] [id number] [place] [address]- 3533 Jul, [facility] [place] [facility] [address] [id number] [place] [address]- 3426 Jul, [facility] [place] [facility] [address] [id number] [place] [address]- 8477 Jul, [facility] [place] [facility] [address] [id number] [place] [address]- 4049 Jul, [facility] [place] [facility] [address] [id number] [place] [address]- 6452 Jul, [facility] [place] [facility] [address] [id number] [place] [address]- 2548 Jul, [facility] [place] [facility] [address] [id number] [place] [address]- 7595 Jul, [facility] [place] [facility] [address] [id number] [place] [address]- 5226 Jul, [facility] [place] [facility] [address] [id number] [place] [address]- 2966 Jul, [facility] [place] [facility] [address] [id number] [place] [address]- 3083 04 Jul, 2013 [facility] [place] [facility] [address] [id number] [place] [address]- 7386 Jul, [facility] [place] [facility] [address] [id number] [place] [address]- 7506 Jul, [facility] [place] [facility] [address] [id number] [place] [address]- 2266 Jul, [facility] [place] [facility] [address] [id number] [place] [address]- 1867 Jun, [facility] [place] [facility] [address] [id number] [place] [address]- 0771 Jun, [facility] [place] [facility] [address] [id number] [place] [address]- 6267 Jun, [facility] [place] [facility] [address] [id number] [place] [address]- 8442 Jun, [facility] [place] [facility] [address] [id number] [place] [address]- 0999 Jun, [facility] [place] [facility] [address] [id number] [place] [address]- 1869 Jun, [facility] [place] [facility] [address] [id number] [place] [address]- 7809 May, [facility] [place] [facility] [address] [id number] [place] [address]- 9705 May, [facility] [place] [facility] [address] [id number] [place] [address]- 9319 May, [facility] [place] [facility] [address] [id number] [place] [address]- 5566 May, [facility] [place] [facility] [address] [id number] [place] [address]- 2986 Apr, [facility] [place] [facility] [address] [id number] [place] [address]- 0552 Apr, [facility] [place] [facility] [address] [id number] [place] [address]- 4449 Apr, [facility] [place] [facility] [address] [id number] [place] [address]- 0711 Apr, [facility] [place] [facility] [address] [id number] [place] [address]- 3782 Apr, [facility] [place] [facility] [address] [id number] [place] [address]- 6486 Apr, [facility] [place] [facility] [address] [id number] [place] [address]- 3376 Apr, [facility] [place] [facility] [address] [id number] [place] [address]- 6158 Apr, [facility] [place] [facility] [address] [id number] [place] [address]- 4758 Apr, [facility] [place] [facility] [address] [id number], [place] [address]- 3406 Apr, [facility] [place] [facility] [address] [id number] [place] [address]- 9674 Apr, [facility] [place] [facility] [address] [id number], [place] [address]- 8414 Apr, [facility] [place] [facility] [address] [id number], [place] [address]- 0254 Mar, [facility] [place] [facility] [address] [id number], [place] [address]- 7352 28 Mar, 2013 [facility] [place] [facility] [address] [id number], [place] [address]- 5397 16 Mar, 2013 [facility] [place] [facility] [address] [id number], [place] [address]- 6424 16 Mar, 2013 [facility] [place] [facility] [address] [id number], [place] [address]- 6630 15 Mar, 2013 [facility] [place] [facility] [address] [id number] [place] [address]- 9450 15 Mar, 2013 [facility] [address] [id number] [place] [address]- 1298 27 Feb, 2012 [facility] [place] [facility] [address] [id number] [place] [address] 2546 25 Feb, 2012 [facility] [place] [facility] [address] [id number] [place] [address] 2546 25 Feb, 2012 [facility] [place] [facility] [address] [id number] [place] [address] 2548 23 Feb, 2012 [facility] [place] [facility] [address] [id number] [place] [address]- 5992 17 Feb, 2012 [facility] [place] [facility] [address] [id number] [place] [address]- 6243 10 Feb, 2013 [facility] [place] [address] [id number] [place] [address]- 5556 04 Feb, 2012 [facility] [place] [facility] [address] [id number] [place] [address]- 7070 30 Jan, 2013 [facility] [place] [facility] [address] [id number] [place] [address]- 6414 Jan, [facility] [place] [facility] [address] [id number] [place] [address]- 0363 15 Jan, 2013 [facility] [place] [facility] [address] [id number] [place] [address]- 8419 14 Jan, 2013 [facility] [place] [facility] [address] [id number] [place] [address]- 2542 Jan, [facility] [place] [facility] [address] [id number] [place] [address]- 6893 Jan, [facility] [place] [facility] [address] [id number] [place] [address]- 9491 Jan, [facility] [place] [facility] [address] [id number] [place] [address]- 3210 Dec, [facility] [place] [facility] [address] [id number] [place] [address]- 7390 Dec, [facility] [place] [facility] [address] [id number] [place] [address]- 0251 Dec, [facility] [place] [facility] [address] [id number] [place] [address]- 7879 Dec, [facility] [place] [facility] [address] [id number] [place] [address]- 8952 Dec, [facility] [place] [facility] [address] [id number] [place] [address]- 4233 Dec, [facility] [place] [facility] [address] [id number] [place] [address]- 3758 Nov, [facility] [place] [facility] [address] [id number] [place] [address]- 6041 Nov, [facility] [place] [facility] [address] [id number] [place] [address]- 2813 Nov, [facility] [place] [facility] [address] [id number] [place] [address]- 7299 Nov, [facility] [place] [facility] [address] [id number] [place] [address]- 4353 October, [facility] [place] [facility] [address] [id number] [place] [address]- 0190 October, [facility] [place] [facility] [address] [id number] [place] [address]- 0642 October, [facility] [place] [facility] [address] [id number] [place] [address]- 1145 October, [facility] [place] [facility] [address] [id number] [place] [address]- 6719 Sep, [facility] [place] [facility] [address] [id number] [place] [address]- 7645 Sep, [facility] [place] [facility] [address] [id number], [place] [address]- 0396 16 Sep, 2012 [facility] [place] [address] [id number] [place] [address]- 1691 Sep, [facility] [place] [facility] [address] [id number] [place] [address]- 6423 Sep, [facility] [place] [facility] [address] [facility] [id number] [place] [address]- 3725 Sep, [facility] [place] [facility] [address] [id number] [place] [address]- 5289 Sep, [facility] [place] [facility] [address] [id number] [place] [address]- 1736 Sep, [facility] [place] [facility] [address] [facility] [id number] [place] [address]- 8733 Aug, [facility] [place] [facility] [address] [facility] [id number] [place] [address]- 0554 Aug, [facility] [place] [facility] [address] [id number], [place] [address]- 5048 Aug, [facility] [place] [facility] [address] [id number] [place] [address]- 6938 18 Jul, 2012 [facility] [place] [facility] [address] [facility] [id number], [place] [address]- 6679 08 Jul, 2012 [facility] [place] [facility] [address] [id number], [place] [address]- 7688 07 Jul, 2012 [facility] [place] [facility] [address] [id number], [place] [address]- 1360 06 Jul, 2012 [facility] [place] [facility] [address] [id number] [place] [address]- 0273 05 Jul, 2012 [facility] [place] [facility] [address] [id number], [place] [address]- 4528 Jun, [facility] [place] [facility] [address] [facility] [id number] [place] [address]- 3397 Jun, [facility] [place] [facility] [address] [id number] [place] [address] Jun, [facility] [place] [facility] [address] [id number] [place] [address] May, [facility] [place] [facility] [address] [id number] [place] [address] May, [facility] [place] [facility] [address] [id number] [place] [address] May, [facility] [place] [facility] [address] [id number] [place] [address] May, [facility] [place] [facility] [address] [id number] [place] [address] May, [facility] [place] [facility] [address] [id number] [place] [address] May, [facility] [place] [facility] [address] [id number] [place] [address] May, [facility] [place] [facility] [address] [id number] [place] [address] Apr, [facility] [place] [facility] [address] [id number] [place] [address] Apr, [facility] [place] [facility] [address] [id number] [place] [address] Apr, [facility] [place] [facility] [address] [id number] [place] [address] 27 Apr, 2012 [facility] [place] [facility] [address] [id number] [place] [address] Apr, [facility] [place] [facility] [address] [id number] [place] [address] Apr, [facility] [place] [facility] [address] [id number] [place] [address] 13 Apr, 2012 [facility] [place] [facility] [address] [id number] [place] [address] Apr, [facility] [place] [facility] [address] [id number] [place] [address] Apr, [facility] [place] [facility] [address] [id number] [place] [address] Apr, [facility] [place] [facility] [address] [id number] [place] [address]- [address] Apr, [facility] [place] [facility] [address] [id number] [place] [address] Mar, [facility] [place] [facility] [address] [id number] [place] [address] Mar, [facility] [place] [facility] [address] [id number] [place] [address] Mar, [facility] [place] [facility] [address] [id number] [place] [address] Mar, [facility] [place] [facility] [address] [id number], [place] [address] Mar, [facility] [place] [facility] [address] [id number], [place] [address] Mar, [facility] [place] [facility] [address] [id number], [place] [address] Mar, [facility] [place] [facility] [address] [id number], [place] [address] Mar, [facility] [place] [facility] [address] [id number], [place] [address] Mar, [facility] [place] [facility] [address] [id number], [place] [address] Mar, [facility] [place] [facility] [address] [facility] [id number], [place] [address] Mar, [facility] [place] [facility] [address] [id number], [place] [address] Feb, [facility] [place] [facility] [address] [id number] [place] [address] 27 Sep, 2011 [facility] [place] [facility] [address] [id number] [place] [address] 2546 27 Sep, 2011 [facility] [place] [facility] [address] [id number] [place] [address] 2546 26 Feb, 2011 [facility] [place] [facility] [address] [id number] [place] [address] 2546 24 Feb, 2011 [facility] [place] [facility] [address] [id number] [place] [address] 2546 19 Feb, 2011 [facility] [place] [facility] [address] [id number] [place] [address] 18 Feb, 2011 [facility] [place] [facility] [address] [id number] [place] [address] 2546 18 Feb, 2011 [facility] [place] [facility] [address] [id number] [place] [address] 18 Feb, 2011 [facility] [place] [facility] [address] [id number] [place] [address] Jan, [facility] [place] [facility] [address] [id number] [place] [address] Jan, [facility] [place] [facility] [address] [id number] [place] [address] 2540 Jan, [facility] [place] [facility] [address] [id number] [place] [address] 2546 Jan, [facility] [place] [facility] [address] [id number] [place] [address] 2547 Dec, [facility] [place] [facility] [address] [id number] [place] [address]136 Dec, [facility] [place] [facility] [address] [id number] [place] [address]- [address]46 Dec, [facility] [place] [facility] [address] [id number] [place] [address]- 39[address] Dec, [facility] [place] [facility] [address] [id number] [place] [address]- [address] Dec, [facility] [place] [facility] [address] [id number] [place] [address]- 1812 Dec, [facility] [place] [facility] [address] [id number] [place] [address]- [address] Dec, [facility] [place] [facility] [address] [id number] [place] [address]- [address]68 Dec, [facility] [place] [facility] [address] [id number] [place] [address]- [address] Dec, [facility] [place] [facility] [address] [id number] [place] [address]18 Dec, [facility] [place] [facility] [address] [id number] [place] [address]- [address] Dec, [facility] [place] [facility] [address] [id number] [place] [address]- 1410 Dec, [facility] [place] [facility] [address] [id number] [place] [address]- [address] Dec, [facility] [place] [facility] [address] [id number] [place] [address]- 2968 Dec, [facility] [place] [facility] [address] [id number] [place] [address]- [address]59 Nov, [facility] [place] [facility] [address] [id number] [place] [address]- [address] Nov, [facility] [place] [facility] [address] [id number] [place] [address]- 2916 Nov, [facility] [place] [facility] [address] [id number] [place] [address]- 9760 Nov, [facility] [place] [facility] [address] [id number] [place] [address]- 4134 Nov, [facility] [place] [facility] [address] [id number] [place] [address]- 2546 Nov, [facility] [address] [id number] [place] [address]- [address] October, [facility] [place] [facility] [address] [id number] [place] [address]- [address]296 October, [facility] [place] [facility] [address] [id number] [place] [address]- [address] October, [facility] [place] [facility] [address] [id number] [place] [address]- 4482 October, [facility] [place] [facility] [address] [id number] [place] [address]- [address]448 Sep, [facility] [place] [facility] [address] [id number] [place] [address]- [address] 17 Sep, 2011 [facility] [place] [facility] [address] [id number] [place] [address]- 1337 Sep, [facility] [place] [facility] [address] [id number] [place] [address]- 385[address] Sep, [facility] [place] [facility] [address] [id number] [place] [address]- 7875 Sep, [facility] [place] [facility] [address] [id number] [place] [address]- 4514 Aug, [facility] [place] [facility] [address] [id number] [place] [address]- 6217 Aug, [facility] [place] [facility] [address] [id number] [place] [address]- 1486 Aug, [facility] [place] [facility] [address] [id number] [place] [address]- 8401 20 Aug, 2011 [facility] [place] [facility] [address] [id number] [place] [address] 13 Aug, 2011 [facility] [place] [facility] [address] [id number] [place] [address] Aug, [facility] [place] [facility] [address] [id number] [place] [address] Aug, [facility] [address] [id number] [place] [address] Jul, [facility] [address] [facility] [id number] [place] [address] 16 Jul, 2011 [facility] [address] [facility] [id number] [place] [address] Jul, [facility] [address] [facility] [id number] [place] [address] Jul, [facility] [address] [facility] [id number] [place] [address] Jun, [facility] [address] [place] [id number] Jun, [facility] [id number] [place] [address] Jun, [facility] [address] [facility] [id number], [place] [address] Jun, [facility] [address] [id number] [place] [address] Jun, [facility] [address] [id number] [address] Jun, [facility] [address] [id number] [place] [address] Jun, [facility] [address] [facility] [id number], [place] [address] Jun, [facility] [address] [facility] [id number] [place] [address] May, [facility] [address] [facility] [id number] [place] [address] May, [facility] [address] [facility] [id number], [place] [address] May, [facility] [place] [facility] [address] [id number] [place] [address] May, [facility] [place] [facility] [address] [id number] [place] [address] May, [facility] [place] [facility] [address] [id number] [place] [address] May, [facility] [place] [facility] [address] [id number] [place] [address] May, [facility] [place] [facility] [address] [id number] [place] [address] Apr, [facility] [place] [facility] [address] [id number] [place] [address] Apr, [facility] [place] [facility] [address] [id number] [place] [address] Apr, [facility] [place] [facility] [address] [id number] [place] [address] Mar, [facility] [place] [facility] [address] [id number] [place] [address] Mar, [facility] [place] [facility] [address] [id number] [place] [address]- [address] 14 Mar, 2011 [facility] [place] [facility] [address] [id number] [place] [address] Mar, [facility] [place] [facility] [address] [id number] [place] [address] Mar, [facility] [place] [facility] [address] [id number] [place] [address] Mar, [facility] [place] [facility] [address] [id number] [place] [address] Mar, [facility] [place] [facility] [address] [id number] [place] [address] Jan, [facility] [place] [facility] [address] [id number] [place] [address] 27 May, 2010 [facility] [place] [facility] [address] [id number] [place] [address]46 21 May, 2010 [facility] [place] [facility] [address] [id number] [place] [address] 2546 May, [facility] [place] [facility] [address] [id number] [place] [address] 2546 13 May, 2010 [facility] [place] [facility] [address] [id number] [place] [address] 2547 10 May, 2010 [facility] [place] [facility] [address] [id number] [place] [address]48 06 May, 2010 [facility] [place] [facility] [address] [id number] [place] [address] 29 Apr, 2010 [facility] [place] [facility] [address] [id number] [place] [address] 26 Apr, 2010 [facility] [place] [facility] [address] [id number] [place] [address] Apr, [facility] [place] [facility] [address] [id number] [place] [address] 18 Apr, 2010 [facility] [place] [facility] [address] [id number] [place] [address]- [address] 15 Apr, 2010 [facility] [place] [facility] [address] [id number], [place] [address] Apr, [facility] [place] [facility] [address] [id number], [place] [address] Apr, [facility] [place] [facility] [address] [id number] [place] [address] 254 Apr, [facility] [place] [facility] [address] [id number] [place] [address]- [address] Apr, [facility] [place] [facility] [address] [id number] [place] [address]- [address] Apr, [facility] [place] [facility] [address] [id number], [place] [address] Mar, [facility] [address] [id number], [place] [address] Mar, [facility] [address] [id number], [place] [address] Mar, [facility] [address] [id number] [address] [address] Mar, [facility] [address] [id number], [place] [address] Mar, [facility] [address] [id number], [place] [address] Dec, [facility] [address] [id number], [place] [address] Nov, IMMUNIZATIONS No Known Immunizations SOCIAL HISTORY [...]
--- OUTSIDE RECORDS SUMMARY | 2018-07-05 15:08 | XMS REPORT ---
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 Name Role Phone OMKAR SERRANO Unavailable PROBLEMS Type Condition ICD9-CM Code AMZ60-IK Code Onset Dates Condition Status SNOMED Code Problem Anemia, unspecified type D64.9 Active 790552174 Problem Personality disorder F60.9 Active 21702003 Problem Factitious disorder imposed on self, recurrent episode F68.10 Active 39162026 Problem Ventral hernia without obstruction or gangrene K43.9 Active 535450533 Problem Allergic state, subsequent encounter T78.40XD Active 870050552 Problem Anxiety F41.9 Active 54431881 Problem Age-related osteoporosis without current pathological fracture M81.0 Active 19331003 Problem Unspecified psychosis not due to a substance or known physiological condition F29 Active 28564219 Problem Iron deficiency anemia, unspecified iron deficiency anemia type D50.9 Active 30819050 Problem History of CVA with residual deficit I69.30 Active 280148692 Problem Seizure disorder G40.909 Active 894777749 Problem Perennial allergic rhinitis, unspecified allergic rhinitis trigger J30.89 Active 185338435 Problem Chronic kidney disease, unspecified stage N18.9 Active 532245329 Problem Back pain M54.9 Active 393210612 Problem Gastroesophageal reflux disease without esophagitis K21.9 Active 665561648 Problem Insomnia, unspecified type G47.00 Active 881199583 Problem History of colon polyps Z86.010 Active 431564900 ALLERGIES No Information ENCOUNTERS Encounter Location Date Diagnosis [facility] [id number], [place] [address] Mar, [facility] [id number], [place] [address] Feb, [facility] [address], [place] [address] Jan, Unspecified psychosis not due to a substance or known physiological condition F29 ; Personality disorder F60.9 and Factitious disorder imposed on self, recurrent episode F68.10 [facility] [address], [place] [address] Jan, [facility] [id number] [place] [address] 48476- 1903 Jan, Back pain M54.9 and Seizure disorder G40.909 [facility] [id number] [place] [address] 77403- 1296 Jan, Back pain M54.9 [facility] [id number] [place] [address] 33028- 5112 Jan, Back pain M54.9 [id number] [place] [address] 90137- 1714 Jan, [address] [id number] [place] [address] 98929- 2432 Jan, Unspecified psychosis not due to a substance or known physiological condition F29 ; Personality disorder F60.9 and Factitious disorder imposed on self, recurrent episode F68.10 [address], [place] [address] Dec, Back pain M54.9 ; Seizure disorder G40.909 ; Ventral hernia without obstruction or gangrene K43.9 and History of CVA with residual deficit I69.30 [facility] [address], [place] [address] Dec, Unspecified psychosis not due to a substance or known physiological condition F29 ; Personality disorder F60.9 and Factitious disorder imposed on self, recurrent episode F68.10 [facility] [address], [place] [address] Dec, [facility] [id number] [place] [address] 40011- 6271 Dec, Back pain M54.9 [address] [id number] [place] [address] 64120- 7673 Dec, Factitious disorder imposed on self, recurrent episode F68.10 ; Personality disorder F60.9 ; Insomnia, unspecified type G47.00 and Anxiety F41.9 [id number] [place] [address] 37971- 0008 Nov, Unspecified psychosis not due to a substance or known physiological condition F29 ; Personality disorder F60.9 and Factitious disorder imposed on self, recurrent episode F68.10 [address] [place] [id number] [place] [address] 24224- 2667 Nov, Back pain M54.9 [place] [id number] [place] [address] 23441- 5687 Nov, Unspecified psychosis not due to a substance or known physiological condition F29 ; Personality disorder F60.9 and Factitious disorder imposed on self, recurrent episode F68.10 [place] [place] [id number] [place] [address] 95783- 8066 October, [place] [id number] [place] [address] 06324- 6673 October, [place] [id number] [place] [address] 70473- 1708 October, Unspecified psychosis not due to a substance or known physiological condition F29 ; Personality disorder F60.9 and Factitious disorder imposed on self, recurrent episode F68.10 [place] [id number] [place] [address] 94966- 4996 October, Back pain M54.9 [place] [id number] [place] [address] 16351- 3789 October, Seizure disorder G40.909 ; Back pain M54.9 and Allergic state, subsequent encounter T78.40XD [place] [id number] [place] [address] 17327- 6445 October, [facility] [id number] [place] [address] 93107- 3363 Sep, Back pain M54.9 [facility] [id number] [place] [address] 50373- 1567 Sep, Unspecified psychosis not due to a substance or known physiological condition F29 ; Personality disorder F60.9 and Factitious disorder imposed on self, recurrent episode F68.10 [facility] [id number] [place] [address] 34986- 2711 Sep, [facility] [id number] [place] [address] 48043- 1610 Sep, [facility] [id number] [place] [address] 78535- 7894 Sep, [facility] [id number] [place] [address] 55810- 6206 Sep, [facility] [id number] [place] [address] 20671- 7040 Aug, [facility] [id number] [place] [address] 79061- 9828 Aug, Back pain M54.9 [facility] [id number] [place] [address] 16141- 1924 Aug, Factitious disorder imposed on self, recurrent episode F68.10 ; Personality disorder F60.9 ; Insomnia, unspecified type G47.00 and Anxiety F41.9 [facility] [id number] [place] [address] 48676- 0577 Aug, Back pain M54.9 ; Iron deficiency anemia, unspecified iron deficiency anemia type D50.9 ; Chronic kidney disease, unspecified stage N18.9 and Breast cancer screening Z12.31 [facility] [id number] [place] [address] [id number] Jul, Back pain M54.9 [facility] [id number] [id number] Jul, [facility] [id number] [id number] Jul, [facility] [id number] [id number] Jun, Back pain M54.9 [facility] [id number] [id number] Jun, [facility] [id number] [place] [address] [id number] Jun, Back pain M54.9 [facility] [address], [place] [address] 8848 Jun, Back pain M54.9 ; Seizure disorder G40.909 and Age-related osteoporosis without current pathological fracture M81.0 [facility] [id number] [id number] May, [facility] [address] [place] [address] 23026- 5831 May, Back pain M54.9 [facility] [address], [place] [address] 9212 Apr, Back pain M54.9 ; Encounter for immunization Z23 ; Gastroesophageal reflux disease without esophagitis K21.9 ; Age-related osteoporosis without current pathological fracture M81.0 and Chronic pruritus L29.9 [facility] [id number], [place] [address] 3312 Apr, History of CVA with residual deficit I69.30 [facility] [address], [place] [address] 3753 Apr, Factitious disorder imposed on self, recurrent episode F68.10 and Personality disorder F60.9 [facility] [id number] [place] [address] [id number] Apr, Back pain M54.9 [facility] [id number], [place] [address] 2024 Mar, Factitious disorder imposed on self, recurrent episode F68.10 [facility] [address], [place] [address] 9161 Mar, [facility] [id number] [id number] Mar, [facility] [id number] [place] [address] [id number] Mar, Back pain M54.9 [facility] [id number] [place] [address] 16409- 1774 Mar, Back pain M54.9 ; Seizure disorder G40.909 and Age-related osteoporosis without current pathological fracture M81.0 [facility] [address] [place] [address] 87634- 9755 Feb, History of CVA with residual deficit I69.30 [facility] [id number] [place] [address] 87609- 5881 Feb, Factitious disorder imposed on self, recurrent episode F68.10 and Personality disorder F60.9 [facility] [address], [place] [address] 3764 15 Feb, 2017 Back pain M54.9 [facility] [address], [place] [address]- 4219 Feb, [facility] [address], [place] [address]- 5543 Jan, [facility] [address] [place] [id number] Jan, Age- related osteoporosis without current pathological fracture M81.0 and Allergic state, subsequent encounter T78.40XD [facility] [address], [place] [address] Jan, Factitious disorder imposed on self, recurrent episode F68.10 and Personality disorder F60.9 [facility] [address], [place] [address]- 5728 Dec, Back pain M54.9 [facility] [address] [place] [address] 51595- 0842 Dec, Personality disorder F60.9 and Factitious disorder imposed on self, recurrent episode F68.10 [facility] [id number] [place] [address] [id number] Dec, Back pain M54.9 [facility] [id number] [place] [address] [id number] Dec, [facility] [id number] [place] [address] [id number] Dec, [facility] [id number] [place] [address] 42188- 2967 Dec, [facility] [id number] [place] [address] 63315- 7164 Nov, [facility] [id number] [place] [address] 61853- 1233 Nov, Back pain M54.9 ; Anemia, unspecified type D64.9 and History of colon polyps Z86.010 [facility] [address], [place] [address]- 3695 Nov, Back pain M54.9 [facility] [id number] [place] [address] [id number] October, Back pain M54.9 [facility] [address] [place] [place] [id number] October, Back pain M54.9 and Gastroesophageal reflux disease without esophagitis K21.9 [facility] [id number] [place] [address] [id number] Sep, [facility] [address], [place] [address]- 1737 Sep, [facility] [address] [facility] [id number], [place] [address]- 8386 Sep, [facility] [address], [place] [address]- 6526 Sep, [facility] [address], [place] [address]- 3040 Sep, [facility] [address], [place] [address]- 5192 Sep, Seizure disorder G40.909 [facility] [id number], [place] [address]- 7683 Sep, Back pain M54.9 [facility] [address], [place] [address]- 0401 Sep, [facility] [address], [place] [address]- 9448 Aug, Back pain M54.9 [facility] [address], [place] [address]- 0320 Aug, Seizure disorder G40.909 [facility] [id number] [id number] Aug, [facility] [id number] [id number] 16 Aug, 2016 Back pain M54.9 [facility] [id number] [id number] 14 Aug, 2016 Back pain M54.9 [facility] [id number] [id number] 06 Aug, 2016 Back pain M54.9 [facility] [address] [place] [id number] Jul, Weakness R53.1 [facility] [address], [place] [address]- 1516 Jul, Seizure disorder G40.909 [facility] [address], [place] [address]- 7009 Jul, [facility] [address] [place] [address] 77089- 3511 Jul, Breast cancer screening Z12.39 [facility] [id number] [place] [address] 85407- 5360 Jul, [facility] [id number] [place] [address] 42660- 4419 Jul, [facility] [id number] [place] [address] 97646- 5420 Jul, [facility] [id number] [place] [address] 09964- 6735 Jul, Seizure disorder G40.909 ; Fatigue, unspecified type R53.83 ; Perennial allergic rhinitis, unspecified allergic rhinitis trigger J30.89 and Chronic kidney disease, unspecified stage N18.9 [facility] [address] [place] [address] 53049- 1923 Jul, [facility] [address] [place] [address] 86118- 5009 Jul, Seizure disorder G40.909 [facility] [address] [place] [address] 98317- 7624 Jun, [facility] [address] [place] [address] 41506- 9771 Jun, [facility] and [address] [id number] Jun, Perennial allergic rhinitis, unspecified allergic rhinitis trigger J30.89 [facility] [id number] [place] [address] [id number] Jun, [facility] [address] [place] [address] 77259- 5677 Jun, Seizure disorder G40.909 [facility] [id number] [place] [address] [id number] Jun, [facility] [place] [facility] [address] [id number] [id number] May, [facility] [address] [facility] [id number] [place] [address] 54274- 1063 May, [facility] [id number] [place] [address] 26191- 5714 May, [facility] [address] [place] [address] 41911- 4907 May, [facility] [id number] [place] [address] 50444- 6872 May, History of CVA with residual deficit I69.30 [facility] [address] [place] [address] 42924- 3815 May, [facility] [id number] [place] [address] 73021- 0152 May, [facility] [address] [place] [address] 84740- 8313 May, [facility] [address] [place] [address] 03023- 8520 May, Seizure disorder G40.909 [facility] [address] [place] [address] 47023- 6721 May, [employer] [address] [place] [address] May, Back pain M54.9 and Seizure disorder G40.909 [facility] [address], [place] [address]- 3201 Apr, [facility] [id number] [place] [address] 47602- 5430 Apr, Back pain M54.9 [facility] [id number] [place] [address] 85754- 8038 Mar, [employer] [address] [place] [address] Mar, Insomnia, unspecified type G47.00 [facility] [address] [facility] [id number], [place] [address]- 7634 Mar, [facility] [address] [facility] [id number], [place] [address]- 5381 Feb, [facility] [address] [facility] [id number] [place] [address] 23999- 6980 Feb, [facility] [address] [facility] [id number] [place] [address] 71862- 8097 Feb, [facility] [address] [facility] [id number] [place] [address] 48830- 4920 Jan, [facility] [id number] [place] [address] 34624- 7251 Jan, [facility] [address] [place] [address] Jan, Seizure disorder G40.909 and Back pain M54.9 [facility] [address], [place] [address]- 3569 Dec, [facility] [address] [place] [address] 72345- 5462 Dec, [facility] [address], [place] [address]- 1795 Dec, [facility] [address] [facility] [id number], [place] [address]- 6928 Nov, [facility] [address] [facility] [id number], [place] [address]- 4027 Nov, [facility] [address] [facility] [id number], [place] [address]- 5468 Nov, Back pain M54.9 [facility] [id number], [place] [address]- 1160 October, [facility] [address] [place] [address] 18380- 5743 October, Back pain M54.9 [facility] [id number] [place] [address] 76988- 8662 October, Seizure disorder G40.909 and B12 deficiency E53.8 [facility] [id number] [place] [address] 65161- 6749 Sep, History of CVA with residual deficit I69.30 [facility] [id number] [place] [address] 60459- 2073 Sep, [facility] [id number] [place] [address] 63944- 7120 Sep, [facility] [id number] [place] [address] 69044- 2205 Sep, Back pain M54.9 [facility] [id number] [place] [address] 21003- 5052 Sep, Seizure disorder G40.909 [facility] [id number] [place] [address] 09387- 5757 Aug, Back pain M54.9 [facility] [id number] [place] [address] 86309- 5961 18 Aug, 2015 Seizure disorder G40.909 [facility] [id number] [place] [address] 30411- 0614 16 Aug, 2015 Back pain M54.9 [facility] [id number] [place] [address] 97792- 3331 14 Aug, 2015 Heart failure, unspecified I50.9 [facility] [id number] [place] [address] 79978- 5846 14 Aug, 2015 Medication monitoring encounter Z51.81 [facility] [id number] [place] [address] 41456- 9713 15 Jul, 2015 [facility] [id number] [place] [address] 66519- 4034 Jul, Seizure disorder G40.909 [facility] [address] [place] [address] 60807- 8643 Jul, Back pain M54.9 [facility] [id number] [place] [address] 44963- 2426 Jun, [facility] [id number] [place] [address] 70202- 7826 Jun, [facility] [id number] [place] [address] 20444- 2180 Jun, Mental status change R41.82 ; History of CVA with residual deficit I69.30 ; Back pain M54.9 and Seizure disorder G40.909 [facility] [id number] [place] [address] 05199- 4567 Jun, [facility] [id number] [place] [address] 06223- 8764 May, [facility] [id number] [place] [address] 96493- 4457 Apr, [facility] [id number] [place] [address] 68114- 9712 Apr, Medication monitoring encounter Z51.81 [facility] [id number] [place] [address] 89936- 7676 Mar, Vomiting R11.10 [facility] [id number] [place] [address] 93022- 8291 Mar, [facility] [id number] [place] [address] 26114- 6166 Feb, [facility] [id number] [place] [address] 66593- 8654 10 Feb, 2015 UTI (urinary tract infection) 599.0 [facility] [id number] [place] [address] 80581- 1682 Jan, [facility] [place] [facility] [address] [id number] [place] [address] 2543 Jan, [facility] [place] [facility] [address] [id number] [place] [address]- 7996 Jan, [facility] [place] [facility] [address] [id number] [place] [address]- 2542 Dec, [facility] [place] [facility] [address] [id number] [place] [address]- 2749 Dec, [facility] [place] [facility] [address] [id number] [place] [address]- [address] Dec, [facility] [place] [facility] [address] [id number] [place] [address] Dec, [facility] [place] [facility] [address] [id number] [place] [address] Nov, UNKNOWN Nov, [facility] [place] [facility] [address] [id number] [place] [address] October, [facility] [place] [facility] [address] [id number] [place] [address] Sep, [facility] [place] [facility] [address] [id number] [place] [address] Sep, [facility] [place] [facility] [address] [id number] [place] [address] Aug, [facility] [place] [facility] [address] [id number] [place] [address] Aug, [facility] [place] [facility] [address] [id number] [place] [address] Jul, [facility] [place] [facility] [address] [id number] [place] [address] Jul, [facility] [place] [facility] [address] [id number] [place] [address] Jul, [facility] [place] [facility] [address] [id number] [place] [address] Jul, 2014 [facility] [place] [facility] [address] [id number] [place] [address] Jul, [facility] [place] [facility] [address] [id number] [place] [address]- 4399 Jun, [facility] [place] [facility] [address] [id number] [place] [address] Jun, [facility] [place] [facility] [address] [id number] [place] [address] 4378 Jun, [facility] [place] [facility] [address] [id number] [place] [address]- 8088 Jun, [facility] [place] [facility] [address] [id number] [place] [address] 0271 Jun, [facility] [place] [facility] [address] [id number] [place] [address] 7271 Jun, [facility] [place] [facility] [address] [id number] [place] [address] 2928 Jun, [facility] [place] [facility] [address] [id number] [place] [address] 1030 Jun, [facility] [place] [facility] [address] [id number] [place] [address] 4960 Jun, [facility] [place] [facility] [address] [id number] [place] [address] 2164 Jun, [facility] [place] [facility] [address] [id number] [place] [address]- 4467 Jun, [facility] [place] [facility] [address] [id number] [place] [address]- 8424 Jun, [facility] [place] [facility] [address] [id number] [place] [address]- 0975 Jun, [facility] [place] [facility] [address] [id number] [place] [address]- 7357 Jun, [facility] [place] [facility] [address] [id number] [place] [address] 6300 Jun, [facility] [address] [id number] [place] [address]- 6245 Jun, [facility] [address] [id number] [place] [address] 7636 Jun, [facility] [address] [id number] [place] [address]- 5343 Jun, [facility] [address] [id number] [place] [address]- 7322 May, [facility] [address] [id number] [place] [address]- 7247 May, [facility] [address] [id number] [place] [address]- 9798 May, [facility] [address] [id number] [place] [address]- 6806 May, [facility] [address] [id number] [place] [address]- 6523 May, [facility] [address] [id number] [place] [address]- 5235 May, [facility] [address] [id number] [place] [address]- 4195 May, [facility] [address] [id number] [place] [address]- 2545 May, [facility] [address] [id number] [place] [address] 2549 May, [place] [address] [facility] [id number] May, [facility] [address] [id number] [place] [address]- 0166 May, [facility] [address] [id number] [place] [address] 7280 May, [facility] [place] [facility] [address] [id number] [place] [address] May, [facility] [place] [facility] [address] [id number] [place] [address]- 4090 Apr, [facility] [place] [facility] [address] [id number] [place] [address]- 9068 Apr, [facility] [place] [facility] [address] [id number] [place] [address]- 0659 Apr, [facility] [place] [facility] [address] [id number] [place] [address]- 5391 Apr, [facility] [place] [facility] [address] [id number] [place] [address]- 2299 Apr, [facility] [place] [facility] [address] [id number] [place] [address]- 8617 Apr, [facility] [place] [facility] [address] [id number] [place] [address] 1916 Mar, [facility] [place] [facility] [address] [id number] [place] [address]- 5327 Mar, [facility] [place] [facility] [address] [id number] [place] [address]- 2165 Mar, [facility] [place] [facility] [address] [id number], [place] [address]- 1103 Mar, [facility] [place] [facility] [address] [id number], [place] [address]- 6111 Mar, [facility] [place] [facility] [address] [id number] [place] [address]- 7138 Mar, [facility] [place] [facility] [address] [id number], [place] [address]- 4856 Feb, [facility] [place] [facility] [address] [id number] [place] [address]- 0080 Feb, [facility] [place] [facility] [address] [id number] [place] [address]- 9292 Feb, [facility] [place] [facility] [address] [id number] [place] [address]- 1705 23 Feb, 2014 [facility] [place] [facility] [address] [id number] [place] [address]- 8648 Feb, [facility] [place] [facility] [address] [id number] [place] [address] 2546 Feb, [facility] [place] [facility] [address] [id number] [place] [address] 2548 Feb, [facility] [place] [facility] [address] [id number] [place] [address]- 2433 Feb, [facility] [place] [facility] [address] [id number] [place] [address]- 6436 Feb, [facility] [place] [facility] [address] [id number] [place] [address]- 8945 Feb, [facility] [place] [address] [place] [id number] Feb, [facility] [place] [facility] [address] [id number] [place] [address]- 7893 Feb, [facility] [place] [facility] [address] [id number] [place] [address]- 2052 Jan, [facility] [place] [facility] [address] [id number] [place] [address]- 2349 Jan, [facility] [place] [facility] [address] [id number] [place] [address]- 9827 Dec, [facility] [place] [facility] [address] [id number] [place] [address]- 4536 Dec, [facility] [place] [facility] [address] [id number] [place] [address]- 9568 Dec, [facility] [place] [facility] [address] [id number] [place] [address]- 6351 Dec, [facility] [place] [facility] [address] [id number] [place] [address]- 6664 Dec, 2013 [facility] [place] [facility] [address] [id number] [place] [address]- 5985 Dec, 2013 [facility] [place] [facility] [address] [id number] [place] [address]- 5902 Dec, 2013 [facility] [place] [facility] [address] [id number] [place] [address]- 3545 Dec, 2013 [facility] [place] [facility] [address] [id number] [place] [address]- 7280 Dec, [facility] [place] [facility] [address] [id number] [place] [address]- 8276 Dec, [facility] [place] [facility] [address] [id number] [place] [address]- 5755 Nov, [facility] [place] [facility] [address] [id number] [place] [address]- 5081 Nov, [facility] [place] [facility] [address] [id number] [place] [address]- 8487 Nov, [facility] [place] [facility] [address] [id number] [place] [address]- 1998 Nov, [facility] [place] [facility] [address] [id number] [place] [address]- 6301 Nov, [facility] [place] [facility] [address] [id number] [place] [address]- 8912 Nov, [facility] [place] [facility] [address] [id number] [place] [address]- 4318 Nov, [facility] [place] [facility] [address] [id number] [place] [address]- 8782 Nov, [facility] [place] [facility] [address] [id number] [place] [address]- 8366 Nov, [facility] [place] [facility] [address] [id number] [place] [address]- 7584 Nov, [facility] [place] [facility] [address] [id number] [place] [address]- 8148 Nov, [facility] [place] [facility] [address] [id number] [place] [address]- 5742 Nov, [facility] [place] [facility] [address] [id number] [place] [address]- 2470 Nov, [facility] [place] [facility] [address] [id number] [place] [address]- 0972 Nov, [facility] [place] [facility] [address] [id number] [place] [address]- 8899 October, [facility] [place] [facility] [address] [id number] [place] [address]- 5043 October, [facility] [place] [facility] [address] [id number] [place] [address]- 3707 October, [facility] [place] [facility] [address] [id number] [place] [address]- 2310 October, [facility] [place] [facility] [address] [id number] [place] [address]- 9570 October, [facility] [place] [facility] [address] [id number] [place] [address]- 9682 October, [facility] [place] [facility] [address] [id number] [place] [address]- 2612 October, [facility] [place] [facility] [address] [id number] [place] [address]- 0277 October, [facility] [place] [facility] [address] [id number] [place] [address]- 9034 October, [facility] [place] [facility] [address] [id number] [place] [address]- 9112 October, [facility] [place] [facility] [address] [id number] [place] [address]- 9422 Sep, [facility] [place] [facility] [address] [id number] [place] [address]- 9495 29 Sep, 2013 [facility] [place] [facility] [address] [id number] [place] [address]- 0734 Sep, [facility] [place] [facility] [address] [id number] [place] [address]- 8898 Sep, [facility] [place] [facility] [address] [id number] [place] [address]- 4544 Sep, [facility] [place] [facility] [address] [id number] [place] [address]- 3441 Sep, [facility] [place] [facility] [address] [id number] [place] [address]- 8580 Sep, [facility] [place] [facility] [address] [id number] [place] [address]- 4069 Sep, [facility] [place] [facility] [address] [id number] [place] [address]- 3067 Sep, [facility] [place] [facility] [address] [id number] [place] [address]- 4816 Sep, [facility] [place] [facility] [address] [id number] [place] [address]- 4010 Aug, [facility] [place] [facility] [address] [id number] [place] [address]- 2767 Aug, [facility] [place] [facility] [address] [id number] [place] [address]- 1088 Aug, [facility] [place] [facility] [address] [id number] [place] [address]- 6789 Aug, [facility] [place] [facility] [address] [id number] [place] [address]- 1082 Aug, [facility] [place] [facility] [address] [id number] [place] [address]- 5907 Aug, [facility] [place] [facility] [address] [id number] [place] [address]- 7884 05 Aug, 2013 [facility] [place] [facility] [address] [id number] [place] [address]- 5870 Aug, [facility] [place] [facility] [address] [id number] [place] [address]- 9507 Aug, [facility] [place] [facility] [address] [id number] [place] [address]- 2546 Jul, [facility] [place] [facility] [address] [id number] [place] [address]- 2940 Jul, [facility] [place] [facility] [address] [id number] [place] [address]- 5212 Jul, [facility] [place] [facility] [address] [id number] [place] [address]- 1436 Jul, [facility] [place] [facility] [address] [id number] [place] [address]- 3961 Jul, [facility] [place] [facility] [address] [id number] [place] [address]- 0816 Jul, [facility] [place] [facility] [address] [id number] [place] [address]- 1803 Jul, [facility] [place] [facility] [address] [id number] [place] [address]- 3603 Jul, [facility] [place] [facility] [address] [id number] [place] [address]- 6477 Jul, [facility] [place] [facility] [address] [id number] [place] [address]- 2549 Jul, [facility] [place] [facility] [address] [id number] [place] [address]- 1742 Jul, [facility] [place] [facility] [address] [id number] [place] [address]- 8617 Jul, [facility] [place] [facility] [address] [id number] [place] [address]- 6346 Jul, [facility] [place] [facility] [address] [id number] [place] [address]- 7299 04 Jul, 2013 [facility] [address] [id number] [place] [address]- 3326 Jul, [facility] [place] [facility] [address] [id number] [place] [address]- 2546 Jul, [facility] [address] [id number] [place] [address]- 0446 Jun, [facility] [place] [facility] [address] [id number] [place] [address]- 3424 Jun, [facility] [address] [id number] [place] [address]- 7542 Jun, [facility] [address] [id number] [place] [address]- 7728 Jun, [facility] [address] [id number] [place] [address]- 7486 Jun, [facility] [address] [id number] [place] [address]- 6937 Jun, [facility] [address] [id number] [place] [address]- 7381 May, [facility] [address] [id number] [place] [address]- 6389 May, [facility] [place] [facility] [address] [id number] [place] [address]- 0371 May, [facility] [place] [facility] [address] [id number] [place] [address]- 0336 May, [facility] [place] [facility] [address] [id number] [place] [address]- 7779 Apr, [facility] [place] [facility] [address] [id number] [place] [address]- 2546 Apr, [facility] [place] [facility] [address] [id number] [place] [address] [address] Apr, [facility] [place] [facility] [address] [id number] [place] [address]- 9941 Apr, [facility] [place] [facility] [address] [id number] [place] [address]- 6375 Apr, [facility] [place] [facility] [address] [id number] [place] [address]- 1970 Apr, [facility] [place] [facility] [address] [id number] [place] [address]- 1413 Apr, [facility] [place] [facility] [address] [id number] [place] [address]- 4651 Apr, [facility] [place] [facility] [address] [id number] [place] [address]- 6553 Apr, [facility] [place] [facility] [address] [id number] [place] [address]- 2197 Apr, [facility] [place] [facility] [address] [id number] [place] [address]- 4506 Apr, [facility] [place] [facility] [address] [id number] [place] [address]- 9431 Apr, [facility] [place] [facility] [address] [id number], [place] [address]- 0113 Mar, [facility] [place] [facility] [address] [id number], [place] [address]- 7835 28 Mar, 2013 [facility] [place] [facility] [address] [id number], [place] [address]- 3557 16 Mar, 2013 [facility] [place] [facility] [address] [id number] [place] [address]- 9359 16 Mar, 2013 [facility] [place] [facility] [address] [id number], [place] [address]- 7262 15 Mar, 2013 [facility] [place] [facility] [address] [id number], [place] [address]- 3455 15 Mar, 2013 [facility] [place] [facility] [address] [id number] [place] [address]- 9023 27 Feb, 2012 [facility] [place] [facility] [address] [id number] [place] [address] 2546 25 Feb, 2012 [facility] [place] [facility] [address] [id number] [place] [address]- 0176 25 Feb, 2012 [facility] [place] [facility] [address] [id number] [place] [address]- 6646 23 Feb, 2012 [facility] [place] [facility] [address] [id number] [place] [address]- 8495 17 Feb, 2012 [facility] [place] [facility] [address] [id number] [place] [address]- 6062 10 Feb, 2012 [facility] [place] [facility] [address] [id number] [place] [address]- 7216 04 Feb, 2013 [facility] [place] [facility] [address] [id number] [place] [address]- 6147 30 Jan, 2013 [facility] [place] [facility] [address] [id number] [place] [address]- 6451 Jan, [facility] [place] [facility] [address] [id number] [place] [address]- 6635 Jan, [facility] [place] [facility] [address] [id number] [place] [address]- 2240 Jan, [facility] [place] [facility] [address] [id number] [place] [address]- 0431 Jan, [facility] [place] [facility] [address] [id number] [place] [address]- 2540 Jan, [facility] [place] [facility] [address] [id number] [place] [address]- 4297 Jan, [facility] [place] [facility] [address] [id number] [place] [address]- 9445 Dec, [facility] [place] [facility] [address] [id number] [place] [address]- 5441 Dec, [facility] [place] [facility] [address] [id number] [place] [address]- 9586 15 Dec, 2012 [facility] [place] [facility] [address] [id number] [place] [address]- 4586 Dec, [facility] [place] [facility] [address] [id number] [place] [address]- 3276 Dec, [facility] [place] [facility] [address] [id number] [place] [address]- 7907 Dec, [facility] [place] [facility] [address] [id number] [place] [address]- 8939 Nov, [facility] [place] [facility] [address] [id number] [place] [address]- 3891 Nov, [facility] [place] [facility] [address] [id number] [place] [address]- 4553 Nov, [facility] [place] [facility] [address] [id number] [place] [address]- 1391 Nov, [facility] [address] [id number] [place] [address]- 2403 October, [facility] [place] [facility] [address] [id number] [place] [address]- 5732 October, [facility] [place] [facility] [address] [id number] [place] [address]- 3961 October, [facility] [place] [facility] [address] [id number] [place] [address]- 4721 October, [facility] [place] [facility] [address] [id number] [place] [address]- 1962 Sep, [facility] [place] [facility] [address] [id number] [place] [address]- 8280 Sep[facility] [place] [facility] [address] [id number] [place] [address]- 4504 16 Sep, 2012 [facility] [place] [facility] [address] [id number] [place] [address]- 9002 Sep, [facility] [address] [id number] [place] [address]- 8999 Sep, [facility] [place] [facility] [address] [id number] [place] [address] Sep, [facility] [place] [facility] [address] [facility] [id number] [place] [address] Sep, [facility] [place] [facility] [address] [id number] [place] [address] Sep, [facility] [address] [id number] [place] [address] Aug, [facility] [place] [facility] [address] [id number] [place] [address] Aug, [facility] [address] [id number] [place] [address] Aug, [facility] [place] [facility] [address] [id number] [place] [address] Jul, [facility] [place] [facility] [address] [id number] [place] [address] 08 Jul, 2012 [facility] [place] [facility] [address] [id number] [place] [address] Jul, [facility] [place] [facility] [address] [id number], [place] [address] Jul, [facility] [place] [facility] [address] [id number], [place] [address] 05 Jul, 2012 [facility] [place] [facility] [address] [id number] [place] [address] Jun, [facility] [place] [facility] [address] [id number] [place] [address] Jun, [facility] [place] [facility] [address] [id number] [place] [address] Jun, [facility] [place] [facility] [address] [id number] [place] [address] May, [facility] [place] [facility] [address] [id number] [place] [address] May, [facility] [place] [facility] [address] [id number] [place] [address] May, [facility] [place] [facility] [address] [id number] [place] [address] May, [facility] [place] [facility] [address] [id number] [place] [address] May, [facility] [place] [facility] [address] [id number] [place] [address] May, [facility] [place] [facility] [address] [id number] [place] [address] May, [facility] [place] [facility] [address] [id number] [place] [address] Apr, [facility] [place] [facility] [address] [id number] [place] [address] Apr, [facility] [place] [facility] [address] [id number] [place] [address] Apr, [facility] [place] [facility] [address] [id number] [place] [address] Apr, [facility] [place] [facility] [address] [id number] [place] [address] Apr, [facility] [place] [facility] [address] [id number] [place] [address] Apr, [facility] [place] [facility] [address] [id number] [place] [address] Apr, [facility] [place] [facility] [address] [id number] [place] [address] 13 Apr, 2012 [facility] [place] [facility] [address] [id number] [place] [address] Apr, [facility] [place] [facility] [address] [id number] [place] [address] Apr, [facility] [place] [facility] [address] [id number] [place] [address] Apr, [facility] [place] [facility] [address] [id number] [place] [address] Mar, [facility] [place] [facility] [address] [id number] [place] [address] Mar, [facility] [place] [facility] [address] [id number] [place] [address] Mar, [facility] [place] [facility] [address] [id number] [place] [address] Mar, [facility] [place] [facility] [address] [id number] [place] [address] Mar, [facility] [place] [facility] [address] [id number], [place] [address] Mar, [facility] [place] [facility] [address] [id number] [place] [address] Mar, [facility] [place] [facility] [address] [id number], [place] [address] Mar, [facility] [place] [facility] [address] [id number], [place] [address] Mar, [facility] [place] [facility] [address] [id number], [place] [address]- [address] Mar, [facility] [place] [facility] [address] [id number] [place] [address] Mar, [facility] [place] [facility] [address] [id number], [place] [address] 2012 [facility] [place] [facility] [address] [id number] [place] [address] 27 Feb, 2012 [facility] [place] [facility] [address] [id number] [place] [address] 27 Feb, 2011 [facility] [place] [facility] [address] [id number] [place] [address] 26 Feb, 2012 [facility] [place] [facility] [address] [id number] [place] [address]- [address] 24 Feb, 2012 [facility] [place] [facility] [address] [id number] [place] [address] 19 Feb, 2011 [facility] [place] [facility] [address] [id number] [place] [address] 18 Feb, 2012 [facility] [place] [facility] [address] [id number] [place] [address] 18 Feb, 2012 [facility] [place] [facility] [address] [id number] [place] [address] Feb, [facility] [place] [facility] [address] [id number] [place] [address] Jan, [facility] [place] [facility] [address] [id number] [place] [address] Jan, [facility] [place] [facility] [address] [id number] [place] [address] Jan, [facility] [place] [facility] [address] [id number] [place] [address] Jan, [facility] [place] [facility] [address] [id number] [place] [address]- 74[address] Dec, [facility] [place] [facility] [address] [id number] [place] [address]- [address] Dec, [facility] [place] [facility] [address] [id number] [place] [address]- [address]87 Dec, [facility] [place] [facility] [address] [id number] [place] [address]- [address] Dec, [facility] [place] [facility] [address] [id number] [place] [address]- 39[address] Dec, [facility] [place] [facility] [address] [id number] [place] [address]- [address] Dec, [facility] [place] [facility] [address] [id number] [place] [address]- [address]75 Dec, [facility] [place] [facility] [address] [id number] [place] [address]- [address]26 Dec, [facility] [place] [facility] [address] [id number] [place] [address]- 289[address] Dec, [facility] [place] [facility] [address] [id number] [place] [address]- 9433 Dec, [facility] [place] [facility] [address] [id number] [place] [address]- [address]879 Dec, [facility] [place] [facility] [address] [id number] [place] [address]- 9567 Dec, [facility] [place] [facility] [address] [id number] [place] [address]- 28[address] Dec, [facility] [place] [facility] [address] [id number] [place] [address]- 0091 Dec, [facility] [place] [facility] [address] [id number] [place] [address]- [address]368 Nov, [facility] [place] [facility] [address] [id number] [place] [address]- [address]27 Nov, [facility] [place] [facility] [address] [id number] [place] [address]- [address] Nov, [facility] [place] [facility] [address] [id number] [place] [address]- 1846 Nov, [facility] [place] [facility] [address] [id number] [place] [address]- 4046 Nov, [facility] [place] [facility] [address] [id number] [place] [address]- 390[address] Nov, [facility] [place] [facility] [address] [id number] [place] [address]- [address]276 October, [facility] [place] [facility] [address] [id number] [place] [address] October, [facility] [place] [facility] [address] [id number] [place] [address] October, [facility] [place] [facility] [address] [id number] [place] [address] October, [facility] [place] [facility] [address] [id number] [place] [address] Sep, [facility] [place] [facility] [address] [id number] [place] [address] Sep, [facility] [place] [facility] [address] [id number] [place] [address] Sep, [facility] [place] [facility] [address] [id number] [place] [address] Sep, [facility] [place] [facility] [address] [id number] [place] [address] Sep, [facility] [place] [facility] [address] [id number] [place] [address] Aug, [facility] [place] [facility] [address] [id number] [place] [address] Aug, [facility] [place] [facility] [address] [id number] [place] [address] Aug, [facility] [place] [facility] [address] [id number] [place] [address] Aug, [facility] [place] [facility] [address] [id number] [place] [address] Aug, [facility] [place] [facility] [address] [id number] [place] [address] Aug, [facility] [place] [facility] [address] [id number] [place] [address] Aug, [facility] [place] [facility] [address] [id number] [place] [address] 16 Jul, 2011 [facility] [address] [id number] [place] [address] 16 Jul, 2011 [facility] [address] [id number] [place] [address] 15 Jul, 2011 [facility] [address] [facility] [id number] [place] [address] Jul, [facility] [address] [facility] [id number] [place] [address] Jun, [address] [id number] Jun, [facility] [address] [facility] [id number], [place] [address] Jun, [facility] [address] [facility] [id number] [place] [address] Jun, [facility] [address] [facility] [id number], [place] [address] Jun, [facility] [address] [facility] [id number] [place] [address] Jun, [facility] [address] [facility] [id number], [place] [address] Jun, [facility] [address] [facility] [id number] [place] [address] Jun, [facility] [address] [facility] [id number], [place] [address] May, [facility] [address] [id number] [place] [address] May, [facility] [address] [facility] [id number] [place] [address] May, [facility] [address] [facility] [id number], [place] [address] May, [facility] [place] [facility] [address] [id number] [place] [address] May, [facility] [place] [facility] [address] [id number] [place] [address] May, [facility] [place] [facility] [address] [id number] [place] [address] May, [facility] [place] [facility] [address] [id number] [place] [address] Apr, [facility] [place] [facility] [address] [id number] [place] [address] Apr, [facility] [place] [facility] [address] [id number] [place] [address] Apr, [facility] [place] [facility] [address] [id number] [place] [address] Mar, [facility] [place] [facility] [address] [id number] [place] [address] Mar, [facility] [place] [facility] [address] [id number] [place] [address] 14 Mar, 2011 [facility] [place] [facility] [address] [id number] [place] [address] Mar, [facility] [place] [facility] [address] [id number] [place] [address] Mar, [facility] [place] [facility] [address] [id number] [place] [address] Mar, [facility] [place] [facility] [address] [id number] [place] [address] Mar, [facility] [place] [facility] [address] [id number] [place] [address] Jan, [facility] [place] [facility] [address] [id number] [place] [address] May, [facility] [place] [facility] [address] [id number] [place] [address] 21 May, 2010 [facility] [place] [facility] [address] [id number] [place] [address] 13 May, 2010 [facility] [place] [facility] [address] [id number] [place] [address] 13 May, 2010 [facility] [place] [facility] [address] [facility] [id number] [place] [address] 10 May, 2010 [facility] [place] [facility] [address] [id number] [place] [address] 06 May, 2010 [facility] [place] [facility] [address] [id number] [place] [address] 29 Apr, 2010 [facility] [place] [facility] [address] [id number], [place] [address] 26 Apr, 2010 [facility] [place] [facility] [address] [id number], [place] [address] 19 Apr, 2010 [facility] [place] [facility] [address] [id number], [place] [address] 18 Apr, 2010 [facility] [place] [facility] [address] [id number], [place] [address] 15 Apr, 2010 [facility] [place] [facility] [address] [id number], [place] [address] Apr, [facility] [place] [facility] [address] [id number], [place] [address] Apr, [facility] [place] [facility] [address] [id number], [place] [address] 05 Apr, 2010 [facility] [place] [facility] [address] [id number], [place] [address] 05 Apr, 2010 [facility] [place] [facility] [address] [facility] [id number], [place] [address] Apr, [facility] [place] [facility] [address] [id number], [place] [address] Mar, [facility] [place] [facility] [address] [facility] [id number], [place] [address] Mar, [facility] [address] [facility] [id number], [place] [address] Mar, [facility] [address] [id number], [place] [address] Mar, [facility] [address] [facility] [id number], [place] [address] Mar, [facility] [address] [facility] [id number], [place] [address] Dec, [facility] [address] [facility] [id number], [place] [address] Nov, IMMUNIZATIONS No Known Immunizations SOCIAL HISTORY Never Assessed REASON FOR VISIT f/u PLAN OF CARE Activity Details Follow Up Next available, 2 Weeks Reason: VITAL SIGNS MEDICATIONS Medication Instructions Dosage Frequency Start Date End Date Duration Status Famotidine 20 mg Orally Once a day 1 tablet at bedtime 24h October, 90 days Active Metoprolol Tartrate 25 MG TAKE 1 TABLET BY MOUTH TWICE DAILY 30 Active Melatonin 5 MG Orally at bedtime 1 tablet 30 days Active Folic Acid 1 MG TAKE 1 TABLET BY MOUTH EVERY DAY 30 Active Citalopram Hydrobromide 10 MG Orally Once a day 1 tablet 24h 30 days Active Sodium Bicarbonate 650 MG Orally Once a day 1 tablet 24h Active Restasis 0.05 % 1 DROP EACH EYE TWICE DAILY 30 Active Jantoven 1 MG TAKE 1&1/2 TABLET BY MOUTH EVERY OTHER DAY ALTERNATING WITH WITH 2 MG DOSE. 29 Active Vitamin D (Ergocalciferol) 94878 UNIT Orally 2 times a day every 7 days 1 capsule Active Fioricet 50-300-40 MG Orally every 6 hrs prn 1 capsule as needed Active Fentanyl 75 MCG/HR Transdermal every 72 hours 1 patch to skin Nov, 30 days Active Hydrocortisone 2.5 % Externally every 24 hours as needed for dry skin 1 application to affected area Active Phenytoin Sodium Extended 100 MG TAKE 1 CAPSULE BY MOUTH TWICE DAILY 30 Active Acetaminophen 650 MG Orally every 6 hrs 1 tablet as needed 6h Active Coumadin 1 MG Orally 1 mg MWF, 1.5mg other days 1 tablet Active Topiramate 100 MG TAKE 1 TABLET BY MOUTH TWICE DAILY 30 Active Refresh Liquigel 1 % Ophthalmic 4 times a day 1 drop into affected eye as needed 6h Active Fexofenadine HCl 180 MG Orally Once a day 1 tablet 24h Active Nitro-Dur 0.2 MG/HR Transdermal Once a day 1 patch to skin remove after 12 hours 24h Active Zofran ODT 4 mg Orally every 8 hrs 1 tablet on the tongue and allow to dissolve 8h Active MiraLax Orally twice a day 17 GM 12h Active Rosuvastatin Calcium 10 MG TAKE ONE TABLET BY MOUTH EVERY NIGHT AT BEDTIME 30 Active Lamotrigine 100 MG TAKE 1 TABLET BY MOUTH TWICE DAILY 30 Active Tussin Cough DM 100-10 MG/5ML Orally every 6 hrs as needed for cough 10 ml as needed Active Cephalexin 500 mg Orally 2 times a day 1 capsule 12h Active Lipitor 40 mg Orally Once a day 1 tablet 24h Active Refresh Tears 0.5 % 1 drop into affected eye as needed Active Vitamin B-12 1000 MCG/ML Injection every 14 days 1 ml Active Gabapentin 400 MG TAKE 1 CAPSULE BY MOUTH AT BEDTIME 30 Active Fluticasone Propionate 50 MCG/ACT INSTILL 1 SPRAY IN EACH NOSTRIL TWICE DAILY 30 Active Ibuprofen 200 mg Orally every 6 hours as needed for headache 2 tablets Active Clorazepate Dipotassium 3.75 MG Orally Twice a day 1 tablets 12h 28 Active Bisacodyl 10 mg Rectal Once a day prn 1 suppository as needed Active RESULTS No Results PROCEDURES Procedure Date Ordered Result Body Site [facility] VISIT MENTAL HEALTH ESTAB PT December 17, 2017 Psychotherapy, patient &/family, 45 minutes, established patient December 17, 2017 INSTRUCTIONS MEDICATIONS ADMINISTERED No Known Medications [...] and skin graft, cholecysectomy Hospitalization History [facility] 12/2016 [facility]2017 Hospitalization History [facility] 01/2018
--- OUTSIDE RECORDS SUMMARY | 2018-07-05 15:09 | XMS REPORT ---
Author Author NAHOMY BETH Organization [facility] Address [address] [place] [address] Care Team Providers Care Senior Assistant Manager Name Role Phone NAHOMY BETH Unavailable PROBLEMS Type Condition ICD9-CM Code MCJ19-LV Code Onset Dates Condition Status SNOMED Code Problem Anemia, unspecified type D64.9 Active 842461865 Problem Personality disorder F60.9 Active 19751594 Problem Factitious disorder imposed on self, recurrent episode F68.10 Active 62326067 Problem Ventral hernia without obstruction or gangrene K43.9 Active 142520989 Problem Allergic state, subsequent encounter T78.40XD Active 061365768 Problem Anxiety F41.9 Active 49296273 Problem Age-related osteoporosis without current pathological fracture M81.0 Active 46121580 Problem Unspecified psychosis not due to a substance or known physiological condition F29 Active 62341180 Problem Iron deficiency anemia, unspecified iron deficiency anemia type D50.9 Active 71491166 Problem History of CVA with residual deficit I69.30 Active 464074830 Problem Seizure disorder G40.909 Active 353568732 Problem Perennial allergic rhinitis, unspecified allergic rhinitis trigger J30.89 Active 797674724 Problem Chronic kidney disease, unspecified stage N18.9 Active 525537764 Problem Back pain M54.9 Active 464665433 Problem Gastroesophageal reflux disease without esophagitis K21.9 Active 555433321 Problem Insomnia, unspecified type G47.00 Active 717636647 Problem History of colon polyps Z86.010 Active 057525406 ALLERGIES No Information ENCOUNTERS Encounter Location Date Diagnosis [facility] [id number], [place] [address] Feb, [facility] [address] [facility] [id number], [place] [address] Jan, [facility] [address], [place] [address] Jan, [facility] [address] [place] [address] 76830- 9931 Jan, Back pain M54.9 and Seizure disorder G40.909 [facility] [address], [place] [address] 5516 Jan, Back pain M54.9 [facility] [id number] [place] [address] 13723- 0613 Jan, Back pain M54.9 [facility] [address] [place] [address] 58846- 8915 Jan, [facility] [address] [place] [address] 33830- 7468 Jan, Unspecified psychosis not due to a substance or known physiological condition F29 ; Personality disorder F60.9 and Factitious disorder imposed on self, recurrent episode F68.10 [facility] [address], [place] [address] 74[address] Dec, Back pain M54.9 ; Seizure disorder G40.909 ; Ventral hernia without obstruction or gangrene K43.9 and History of CVA with residual deficit I69.30 [facility] [address], [place] [address] 9[address] Dec, Unspecified psychosis not due to a substance or known physiological condition F29 ; Personality disorder F60.9 and Factitious disorder imposed on self, recurrent episode F68.10 [facility] [address], [place] [address] Dec, [facility] [id number] [place] [address] 27759- 9406 Dec, Back pain M54.9 [facility] [address], [place] [address] 6820 Dec, Factitious disorder imposed on self, recurrent episode F68.10 ; Personality disorder F60.9 ; Insomnia, unspecified type G47.00 and Anxiety F41.9 [facility] [id number] [place] [address] 70027- 8375 Nov, Unspecified psychosis not due to a substance or known physiological condition F29 ; Personality disorder F60.9 and Factitious disorder imposed on self, recurrent episode F68.10 [facility] [id number] [place] [address] 43821- 6796 Nov, Back pain M54.9 [facility] [id number] [place] [address] 41997- 9324 Nov, Unspecified psychosis not due to a substance or known physiological condition F29 ; Personality disorder F60.9 and Factitious disorder imposed on self, recurrent episode F68.10 [facility] [id number] [place] [address] 58786- 7355 October, [facility] [id number] [place] [address] 88081- 3905 October, [facility] [id number] [place] [address] 29191- 6054 October, Unspecified psychosis not due to a substance or known physiological condition F29 ; Personality disorder F60.9 and Factitious disorder imposed on self, recurrent episode F68.10 [facility] [id number] [place] [address] 23099- 7049 October, Back pain M54.9 [facility] [id number] [place] [address] 34981- 3978 October, Seizure disorder G40.909 ; Back pain M54.9 and Allergic state, subsequent encounter T78.40XD [facility] [id number] [place] [address] 63372- 4609 October, [facility] [id number] [place] [address] 03593- 5727 Sep, Back pain M54.9 [facility] [address], [place] [address] 6933 Sep, Unspecified psychosis not due to a substance or known physiological condition F29 ; Personality disorder F60.9 and Factitious disorder imposed on self, recurrent episode F68.10 [facility] [address], [place] [address] 3215 Sep, [facility] [id number] [place] [address] 22001- 6961 Sep, [facility] [address] [place] [address] 52232- 2762 Sep, [facility] [id number] [place] [address] 61371- 6985 Sep, [facility] [id number] [place] [address] 15759- 9163 Aug, [facility] [id number] [place] [address] 74565- 2877 Aug, Back pain M54.9 [facility] [address] [place] [address] 08816- 2354 Aug, Factitious disorder imposed on self, recurrent episode F68.10 ; Personality disorder F60.9 ; Insomnia, unspecified type G47.00 and Anxiety F41.9 [facility] [address], [place] [address] 8070 Aug, Back pain M54.9 ; Iron deficiency anemia, unspecified iron deficiency anemia type D50.9 ; Chronic kidney disease, unspecified stage N18.9 and Breast cancer screening Z12.31 [facility] [id number] [id number] Jul, Back pain M54.9 [facility] [id number] [id number] Jul, [facility] [id number] [place] [address] [id number] Jul, [facility] [id number] [id number] Jun, Back pain M54.9 [facility] [id number] [place] [address] [id number] Jun, [facility] [id number] [place] [address] [id number] Jun, Back pain M54.9 [facility] [address] [place] [address] 92475685- 1262 Jun, Back pain M54.9 ; Seizure disorder G40.909 and Age-related osteoporosis without current pathological fracture M81.0 [facility] [id number] [place] [address] [id number] May, [facility] [id number] [place] [address] 94902- 8173 May, Back pain M54.9 [facility] [id number] [place] [address] 81187- 3594 Apr, Back pain M54.9 ; Encounter for immunization Z23 ; Gastroesophageal reflux disease without esophagitis K21.9 ; Age-related osteoporosis without current pathological fracture M81.0 and Chronic pruritus L29.9 [facility] [address] [place] [address] 40091- 2055 16 Apr, 2017 History of CVA with residual deficit I69.30 [facility] [address] [place] [address] 86775- 9998 16 Apr, 2017 Factitious disorder imposed on self, recurrent episode F68.10 and Personality disorder F60.9 [facility] [id number] [place] [address] [id number] 08 Apr, 2017 Back pain M54.9 [facility] [address] [place] [address] 17192- 2131 Mar, Factitious disorder imposed on self, recurrent episode F68.10 [facility] [address] [place] [address] 34351- 9241 Mar, [facility] [id number] [id number] Mar, [facility] [id number] [place] [address] [id number] Mar, Back pain M54.9 [facility] [address], [place] [address]- 1134 05 Mar, 2017 Back pain M54.9 ; Seizure disorder G40.909 and Age-related osteoporosis without current pathological fracture M81.0 [facility] [address], [place] [address]- 3420 Feb, History of CVA with residual deficit I69.30 [facility] [address] [place] [address] 53860- 8690 Feb, Factitious disorder imposed on self, recurrent episode F68.10 and Personality disorder F60.9 [facility] [address] [place] [address] 63530- 1686 15 Feb, 2017 Back pain M54.9 [facility] [address] [place] [address] 35817- 2472 Feb, [facility] [address] [place] [address] 18311- 4633 Jan, [facility] [address] [id number] Jan, Age- related osteoporosis without current pathological fracture M81.0 and Allergic state, subsequent encounter T78.40XD [facility] [id number], [place] [address]- 8262 Jan, Factitious disorder imposed on self, recurrent episode F68.10 and Personality disorder F60.9 [facility] [address], [place] [address]- 9076 Dec, Back pain M54.9 [facility] [address] [place] [address] 14404- 2824 Dec, Personality disorder F60.9 and Factitious disorder imposed on self, recurrent episode F68.10 [facility] [id number] [id number] Dec, Back pain M54.9 [facility] [id number] [id number] Dec, [facility] [id number] [place] [address] [id number] Dec, [facility] [address] [place] [address] 65218- 2372 Dec, [facility] [address] [place] [address] 13772- 4593 Nov, [facility] [id number] [place] [address] 21355- 0844 Nov, Back pain M54.9 ; Anemia, unspecified type D64.9 and History of colon polyps Z86.010 [facility] [address], [place] [address]- 2332 Nov, Back pain M54.9 [facility] [id number] [place] [address] [id number] October, Back pain M54.9 [facility] [address] [place] [address] [id number] October, Back pain M54.9 and Gastroesophageal reflux disease without esophagitis K21.9 [facility] [id number] [id number] Sep, [facility] [address], [place] [address]- 1988 Sep, [facility] [address], [place] [address]- 3518 Sep, [facility] [address], [place] [address]- 4131 Sep, [facility] [id number], [place] [address]- 3572 Sep, [facility] [address], [place] [address]- 7776 Sep, Seizure disorder G40.909 [facility] [address], [place] [address]- 3264 Sep, Back pain M54.9 [facility] [address] [place] [address] 71876- 7498 Sep, [facility] [address] [place] [address] 20388- 6652 Aug, Back pain M54.9 [facility] [address] [place] [address] 159513- 1496 Aug, Seizure disorder G40.909 [facility] [id number] [place] [address] [id number] 17 Aug, 2016 [facility] [id number] [place] [address] [id number] 16 Aug, 2016 Back pain M54.9 [facility] [id number] [place] [address] [id number] 14 Aug, 2016 Back pain M54.9 [facility] [id number] [id number] 06 Aug, 2016 Back pain M54.9 [facility] [address] [id number] Jul, Weakness R53.1 [facility] [address], [place] [address]- 1667 Jul, Seizure disorder G40.909 [facility] [address] [place] [address] 61316- 7509 Jul, [facility] [address], [place] [address]- 0162 Jul, Breast cancer screening Z12.39 [facility] [address], [place] [address]- 4744 Jul, [facility] [address], [place] [address]- 5023 Jul, [facility] [address] [place] [address] 47061- 0790 Jul, [facility] [address] [place] [address] 27042- 9447 Jul, Seizure disorder G40.909 ; Fatigue, unspecified type R53.83 ; Perennial allergic rhinitis, unspecified allergic rhinitis trigger J30.89 and Chronic kidney disease, unspecified stage N18.9 [facility] [id number] [place] [address] 01995- 8967 Jul, [facility] [address] [place] [address] 68305- 2175 Jul, Seizure disorder G40.909 [facility] [address] [place] [address] 59100- 8312 Jun, [facility] [address] [place] [address] 91303- 8386 Jun, [facility] [address] [id number] Jun, Perennial allergic rhinitis, unspecified allergic rhinitis trigger J30.89 [facility] [id number] [id number] Jun, [facility] [address] [place] [address] 34292- 0438 Jun, Seizure disorder G40.909 [facility] [id number] [place] [address] [id number] Jun, [facility] [id number] [place] [address] [id number] May, [facility] [address] [place] [address] [id number]- 9587 May, [facility] [address], [place] [address]- 2519 May, [facility] [id number] [place] [address] 84973- 0092 May, [facility] [address] [place] [address] 30109- 8647 May, History of CVA with residual deficit I69.30 [facility] [id number] [place] [address] 38705- 1923 15 May, 2016 [facility] [id number] [place] [address] 74640- 5133 May, [facility] [id number] [place] [address] 84365- 7657 May, [facility] [id number] [place] [address] 00703- 7654 May, Seizure disorder G40.909 [facility] [id number] [place] [address] 91639- 4890 May, [facility] [address] [place] [address] May, Back pain M54.9 and Seizure disorder G40.909 [facility] [address] [place] [address] 60139- 4359 Apr, [facility] [address] [place] [address] 91924- 6338 Apr, Back pain M54.9 [facility] [address] [place] [address] 50898- 2298 Mar, [facility] [address] [place] [address] Mar, Insomnia, unspecified type G47.00 [facility] [address], [place] [address]- 1713 Mar, [facility] [id number] [place] [address] 31261- 9448 Feb, [facility] [address] [facility] [id number], [place] [address]- 7564 Feb, [facility] [address] [facility] [id number], [place] [address]- 9767 Feb, [facility] [address] [facility] [id number], [place] [address]- 6254 Jan, [facility] [address] [facility] [id number] [place] [address] 56643- 3096 Jan, [facility] [address] [place] [address] Jan, Seizure disorder G40.909 and Back pain M54.9 [facility] [address], [place] [address]- 9950 Dec, [facility] [id number] [place] [address] 67872- 9503 Dec, [facility] [address] [facility] [id number], [place] [address]- 7043 Dec, [facility] [address] [place] [address] 18024- 5790 Nov, [facility] [id number], [place] [address]- 0103 Nov, [facility] [address] [place] [address] 77195- 1103 Nov, Back pain M54.9 [facility] [address] [facility] [id number], [place] [address]- 5079 October, [facility] [address], [place] [address]- 5494 October, Back pain M54.9 [facility] [address] [facility] [id number], [place] [address]- 1179 October, Seizure disorder G40.909 and B12 deficiency E53.8 [facility] [id number] [place] [address] 85490- 3337 29 Sep, 2015 History of CVA with residual deficit I69.30 [facility] [id number] [place] [address] 44996- 2340 18 Sep, 2015 [facility] [id number] [place] [address] 46760- 4317 Sep, [facility] [id number] [place] [address] 65695- 4351 Sep, Back pain M54.9 [facility] [id number] [place] [address] 97295- 3910 Sep, Seizure disorder G40.909 [facility] [id number] [place] [address] 96009- 9384 Aug, Back pain M54.9 [facility] [id number] [place] [address] 01162- 1865 Aug, Seizure disorder G40.909 [facility] [id number] [place] [address] 11873- 1420 16 Aug, 2015 Back pain M54.9 [facility] [id number] [place] [address] 94465- 0937 14 Aug, 2015 Heart failure, unspecified I50.9 [facility] [id number] [place] [address] 26222- 5547 14 Aug, 2015 Medication monitoring encounter Z51.81 [facility] [id number] [place] [address] 23993- 6213 15 Jul, 2015 [facility] [id number] [place] [address] 06949- 1222 09 Jul, 2015 Seizure disorder G40.909 [facility] [id number] [place] [address] 12153- 6244 05 Jul, 2015 Back pain M54.9 [facility] [id number], [place] [address]- 4634 Jun, [facility] [address], [place] [address]- 6294 Jun, [facility] [address], [place] [address]- 0844 Jun, Mental status change R41.82 ; History of CVA with residual deficit I69.30 ; Back pain M54.9 and Seizure disorder G40.909 [facility] [address], [place] [address]- 3999 Jun, [facility] [address] [place] [address] 18701- 2554 May, [facility] [address] [place] [address] 49399- 5612 Apr, [facility] [id number] [place] [address] 75372- 2521 Apr, Medication monitoring encounter Z51.81 [facility] [address], [place] [address]- 9771 Mar, Vomiting R11.10 [facility] [address], [place] [address]- 1732 Mar, [facility] [id number], [place] [address] Feb, [facility] [id number], [place] [address] Feb, UTI (urinary tract infection) 599.0 [facility] [id number], [place] [address] Jan, [facility] [id number], [place] [address] Jan, [facility] [id number] [address] Jan, [facility] [id number] [address] Dec, [facility] [place] [facility] [address] [id number] [place] [address] Dec, [facility] [place] [facility] [address] [id number] [place] [address] Dec, [facility] [place] [facility] [address] [id number] [place] [address] Dec, [facility] [place] [facility] [address] [id number] [place] [address] Nov, UNKNOWN Nov, [facility] [place] [facility] [address] [id number] [place] [address] October, [facility] [place] [facility] [address] [facility] [id number] [place] [address] Sep, [facility] [place] [facility] [address] [facility] [id number] [place] [address] Sep, [facility] [place] [facility] [address] [id number] [place] [address] Aug, [facility] [place] [facility] [address] [facility] [id number] [place] [address] Aug, [facility] [place] [facility] [address] [facility] [id number] [place] [address] Jul, [facility] [place] [facility] [address] [facility] [id number] [place] [address] Jul, [facility] [place] [facility] [address] [id number] [id number] [address] Jul, [facility] [place] [facility] [address] [id number] [id number] [address] Jul, [facility] [place] [facility] [address] [facility] [id number] [place] [address] Jul, [facility] [place] [facility] [address] [facility] [id number], [place] [address] Jun, [facility] [place] [facility] [address] [id number] [place] [address]- [address] Jun, [facility] [place] [facility] [address] [id number] [place] [address]- [address] Jun, [facility] [place] [facility] [address] [id number] [place] [address]- [address] Jun, [facility] [place] [facility] [address] [id number] [place] [address] Jun, [facility] [place] [facility] [address] [id number] [place] [address] Jun, [facility] [place] [facility] [address] [id number] [place] [address] Jun, [facility] [place] [facility] [address] [address] [id number] [place] [address] Jun, [facility] [place] [facility] [address] [id number] [place] [address] 34[address] Jun, [facility] [place] [facility] [address] [id number] [place] [address] 8521 Jun, [facility] [place] [facility] [address] [id number] [place] [address] 5226 Jun, [facility] [place] [facility] [address] [id number], [place] [address] Jun, [facility] [place] [facility] [address] [id number], [place] [address] Jun, [facility] [place] [facility] [address] [id number] [place] [address] 1456 Jun, [facility] [place] [facility] [address] [id number] [place] [address]- 6413 Jun, [facility] [place] [facility] [address] [id number] [place] [address]- 5658 Jun, [facility] [place] [facility] [address] [id number] [place] [address] 6060 Jun, [facility] [address] [id number] [place] [address] 2203 Jun, [facility] [address] [id number] [place] [address]- 3917 May, [facility] [address] [id number] [place] [address]- 5290 May, [facility] [address] [id number] [place] [address]- 5092 May, [facility] [address] [id number] [place] [address] May, [facility] [address] [id number] [place] [address]- 3949 May, [facility] [address] [id number] [place] [address]- 0259 May, [facility] [address] [id number] [place] [address]- 7857 May, [facility] [address] [id number] [place] [address]- 3638 May, [facility] [address] [id number] [place] [address]- 6032 May, [place] [address] [id number] May, [facility] [address] [id number] [place] [address]- 8909 May, [facility] [address] [id number] [place] [address]- 0415 May, [facility] [address] [id number] [place] [address]- 6171 May, [facility] [address] [id number] [place] [address]- 4577 Apr, [facility] [place] [facility] [address] [id number] [place] [address]- 5931 Apr, [facility] [place] [facility] [address] [id number] [place] [address]- 5644 Apr, [facility] [place] [facility] [address] [id number] [place] [address]- 2252 Apr, [facility] [place] [facility] [address] [id number] [place] [address]- 1868 Apr, [facility] [place] [facility] [address] [id number] [place] [address]- 6504 Apr, [facility] [place] [facility] [address] [id number] [place] [address]- 0695 Mar, [facility] [place] [facility] [address] [id number] [place] [address]- 9370 Mar, [facility] [place] [facility] [address] [id number] [place] [address]- 9740 Mar, [facility] [place] [facility] [address] [id number] [place] [address]- 0769 Mar, [facility] [place] [facility] [address] [id number] [place] [address]- 5943 Mar, [facility] [place] [facility] [address] [id number] [place] [address]- 4801 Mar, [facility] [place] [facility] [address] [id number] [place] [address]- 7695 Feb, [facility] [place] [facility] [address] [id number] [place] [address]- 4815 Feb, [facility] [place] [facility] [address] [id number] [place] [address]- 1010 Feb, [facility] [place] [facility] [address] [id number] [place] [address]- 2896 Feb, [facility] [place] [facility] [address] [id number] [place] [address]- 8128 Feb, [facility] [place] [facility] [address] [id number] [place] [address]- 8406 Feb, [facility] [place] [facility] [address] [id number] [place] [address]- 6817 Feb, [facility] [place] [facility] [address] [id number] [place] [address]- 8252 Feb, [facility] [place] [facility] [address] [id number] [place] [address]- 1579 Feb, [facility] [place] [facility] [address] [id number] [place] [address]- 7545 Feb, [facility] [address] [place] [id number] Feb, [facility] [place] [facility] [address] [id number] [place] [address]- 7345 Feb, [facility] [place] [facility] [address] [id number] [place] [address]- 1864 Jan, [facility] [place] [facility] [address] [id number] [place] [address]- 8789 Jan, [facility] [place] [facility] [address] [id number] [place] [address]- 6712 Dec, [facility] [place] [facility] [address] [id number] [place] [address]- 3245 Dec, [facility] [place] [facility] [address] [id number] [place] [address]- 4704 Dec, [facility] [place] [facility] [address] [id number] [place] [address]- 6903 Dec, [facility] [place] [facility] [address] [id number] [place] [address]- 1316 Dec, [facility] [place] [facility] [address] [id number] [place] [address]- 8690 Dec, [facility] [place] [facility] [address] [id number] [place] [address]- 0350 Dec, [facility] [place] [facility] [address] [id number] [place] [address]- 5202 Dec, [facility] [place] [facility] [address] [id number] [place] [address]- 2800 Dec, [facility] [place] [facility] [address] [id number] [place] [address]- 8872 Dec, [facility] [place] [facility] [address] [id number] [place] [address]- 2516 Nov, [facility] [place] [facility] [address] [id number] [place] [address]- 1721 Nov, [facility] [place] [facility] [address] [id number] [place] [address]- 5326 Nov, [facility] [place] [facility] [address] [id number] [place] [address]- 1204 Nov, [facility] [place] [facility] [address] [id number] [place] [address]- 0433 Nov, [facility] [place] [facility] [address] [id number] [place] [address]- 7731 Nov, [facility] [place] [facility] [address] [id number] [place] [address]- 8629 Nov, [facility] [place] [facility] [address] [id number] [place] [address]- 4755 Nov, [facility] [place] [facility] [address] [id number] [place] [address]- 8803 Nov, [facility] [place] [facility] [address] [id number] [place] [address]- 6301 Nov, [facility] [place] [facility] [address] [id number] [place] [address]- 4814 Nov, [facility] [place] [facility] [address] [id number] [place] [address]- 8346 Nov, [facility] [place] [facility] [address] [id number] [place] [address]- 0465 Nov, [facility] [place] [facility] [address] [id number] [place] [address]- 6682 Nov, [facility] [place] [facility] [address] [id number] [place] [address]- 2080 October, [facility] [place] [facility] [address] [id number] [place] [address]- 1809 October, [facility] [place] [facility] [address] [id number] [place] [address]- 4398 October, [facility] [place] [facility] [address] [id number] [place] [address]- 3751 October, [facility] [place] [facility] [address] [id number] [place] [address]- 2849 October, [facility] [place] [facility] [address] [id number] [place] [address]- 4193 October, [facility] [place] [facility] [address] [id number] [place] [address]- 0657 October, [facility] [place] [facility] [address] [id number] [place] [address]- 0849 October, [facility] [place] [facility] [address] [id number] [place] [address]- 4409 October, [facility] [place] [facility] [address] [id number] [place] [address]- 3010 October, [facility] [place] [facility] [address] [id number] [place] [address]- 0493 Sep, [facility] [place] [facility] [address] [id number] [place] [address]- 1386 Sep, [facility] [place] [facility] [address] [id number] [place] [address]- 1506 Sep, [facility] [place] [facility] [address] [id number] [place] [address]- 9955 Sep, [facility] [place] [facility] [address] [id number] [place] [address]- 2568 Sep, [facility] [place] [facility] [address] [id number] [place] [address]- 9268 14 Sep, 2013 [facility] [place] [facility] [address] [id number] [place] [address]- 5928 Sep, [facility] [place] [facility] [address] [id number] [place] [address]- 2854 Sep, [facility] [place] [facility] [address] [id number] [place] [address]- 7269 Sep, [facility] [place] [facility] [address] [id number] [place] [address]- 8454 Sep, [facility] [place] [facility] [address] [id number] [place] [address]- 0843 Aug, [facility] [place] [facility] [address] [id number] [place] [address]- 1020 Aug, [facility] [place] [facility] [address] [id number] [place] [address]- 9960 Aug, [facility] [place] [facility] [address] [id number] [place] [address]- 6537 Aug, [facility] [place] [facility] [address] [id number] [place] [address]- 2947 Aug, [facility] [place] [facility] [address] [id number], [place] [address]- 3212 Aug, [facility] [place] [facility] [address] [id number] [place] [address]- 0096 05 Aug, 2013 [facility] [place] [facility] [address] [id number] [place] [address]- 4944 Aug, [facility] [place] [facility] [address] [id number] [place] [address]- 1531 Aug, [facility] [place] [facility] [address] [id number] [place] [address]- 8077 Jul, [facility] [place] [facility] [address] [id number] [place] [address]- 2906 Jul, 2013 [facility] [place] [facility] [address] [id number] [place] [address]- 2546 Jul, 2013 [facility] [place] [facility] [address] [facility] [id number] [place] [address]- 5554 Jul, 2013 [facility] [place] [facility] [address] [id number] [place] [address]- 0645 Jul, [facility] [place] [facility] [address] [id number] [place] [address]- 7255 Jul, [facility] [place] [facility] [address] [facility] [id number] [place] [address]- 1264 Jul, [facility] [place] [facility] [address] [facility] [id number] [place] [address]- 4689 Jul, 2013 [facility] [place] [facility] [address] [facility] [id number] [place] [address]- 6043 Jul, [facility] [place] [facility] [address] [facility] [id number] [place] [address]- 9562 Jul, [facility] [place] [facility] [address] [facility] [id number] [place] [address]- 2299 Jul, [facility] [place] [facility] [address] [facility] [id number], [place] [address]- 2540 Jul, 2013 [facility] [place] [facility] [address] [facility] [id number] [place] [address]- 9344 Jul, [facility] [place] [facility] [address] [facility] [id number] [place] [address]- 6823 Jul, [facility] [place] [facility] [address] [facility] [id number] [place] [address]- 9419 Jul, 2013 [facility] [place] [facility] [address] [facility] [id number], [place] [address]- 3807 Jul, [facility] [address] [id number] [place] [address]- 2730 Jun, [facility] [place] [facility] [address] [id number] [place] [address]- 3356 Jun, [facility] [place] [facility] [address] [id number] [place] [address]- 6585 Jun, [facility] [place] [facility] [address] [id number] [place] [address]- 8552 Jun, [facility] [address] [id number] [place] [address]- 1773 Jun, [facility] [place] [facility] [address] [id number] [place] [address]- 7414 Jun, [facility] [address] [facility] [id number] [place] [address]- 8034 May, [facility] [place] [facility] [address] [id number] [place] [address]- 9374 May, [facility] [address] [id number] [place] [address]- 0976 May, [facility] [place] [facility] [address] [facility] [id number] [place] [address]- 4157 May, [facility] [place] [facility] [address] [id number] [place] [address]- 7298 Apr, [facility] [place] [facility] [address] [id number] [place] [address]- 6466 Apr, [facility] [place] [facility] [address] [id number] [place] [address]- 0931 Apr, [facility] [place] [facility] [address] [id number] [place] [address]- 3931 Apr, [facility] [place] [facility] [address] [facility] [id number] [place] [address]- 0518 Apr, [facility] [place] [facility] [address] [id number] [place] [address]- 8424 Apr, [facility] [place] [facility] [address] [id number] [place] [address]- 6185 Apr, [facility] [place] [facility] [address] [id number] [place] [address]- 2215 Apr, [facility] [place] [facility] [address] [id number] [place] [address]- 4382 Apr, [facility] [place] [facility] [address] [id number] [place] [address]- 3103 Apr, [facility] [place] [facility] [address] [id number] [place] [address]- 9249 Apr, [facility] [place] [facility] [address] [id number] [place] [address]- 2347 Apr, [facility] [place] [facility] [address] [id number] [place] [address]- 1778 Mar, [facility] [place] [facility] [address] [id number] [place] [address]- 6524 28 Mar, 2013 [facility] [place] [facility] [address] [id number] [place] [address]- 8474 16 Mar, 2013 [facility] [place] [facility] [address] [id number] [place] [address]- 5749 16 Mar, 2013 [facility] [place] [facility] [address] [id number] [place] [address]- 9741 15 Mar, 2013 [facility] [place] [facility] [address] [id number] [place] [address]- 7561 15 Mar, 2013 [facility] [place] [facility] [address] [id number] [place] [address]- 2549 27 Feb, 2013 [facility] [place] [facility] [address] [id number] [place] [address]- 2545 25 Feb, 2013 [facility] [place] [facility] [address] [id number] [place] [address]- 1660 25 Feb, 2013 [facility] [place] [facility] [address] [id number] [place] [address]- 5267 23 Feb, 2013 [facility] [place] [facility] [address] [id number] [place] [address]- 0066 17 Feb, 2013 [facility] [place] [facility] [address] [id number] [place] [address]- 7536 10 Feb, 2013 [facility] [place] [facility] [address] [id number] [place] [address]- 6902 04 Feb, 2013 [facility] [place] [facility] [address] [id number] [place] [address]- 8729 Jan, [facility] [place] [facility] [address] [id number] [place] [address]- 5537 Jan, [facility] [place] [facility] [address] [id number] [place] [address]- 8583 Jan, [facility] [place] [facility] [address] [id number] [place] [address]- 2315 Jan, [facility] [place] [facility] [address] [id number] [place] [address]- 6315 Jan, [facility] [place] [facility] [address] [id number] [place] [address]- 5024 Jan, [facility] [place] [facility] [address] [id number] [place] [address]- 1550 Jan, [facility] [place] [facility] [address] [id number], [place] [address]- 2045 Dec, [facility] [place] [facility] [address] [id number] [place] [address]- 7479 Dec, [facility] [place] [facility] [address] [id number] [place] [address]- 8998 Dec, [facility] [place] [facility] [address] [id number] [place] [address]- 5358 Dec, [facility] [place] [facility] [address] [id number] [place] [address]- 9566 Dec, [facility] [address] [id number] [place] [address]- 6569 Dec, [facility] [address] [id number] [place] [address]- 0493 Nov, [facility] [address] [id number] [place] [address]- 7197 Nov, [facility] [address] [id number] [place] [address]- 8153 Nov, [facility] [address] [id number] [place] [address]- 9627 Nov, [facility] [address] [id number] [place] [address]- 4469 October, [facility] [address] [id number] [place] [address]- 9196 October, [facility] [address] [id number] [place] [address]- 2775 October, [facility] [address] [id number] [place] [address]- 1141 October, [facility] [address] [id number] [place] [address]- 2477 Sep, [facility] [address] [id number] [place] [address]- 8755 Sep, [facility] [address] [id number] [place] [address]- 0120 16 Sep, 2012 [facility] [place] [facility] [address] [id number] [place] [address]- 2306 Sep, [facility] [place] [facility] [address] [id number] [place] [address]- 7848 Sep, [facility] [address] [id number] [place] [address]- 2277 Sep, [facility] [place] [facility] [address] [id number] [place] [address]- 4373 Sep, [facility] [address] [id number] [place] [address]- 1573 Sep, [facility] [address] [id number] [place] [address]- 6906 Aug, [facility] [address] [id number] [place] [address]- 5964 Aug, [facility] [address] [id number] [place] [address]- 6210 Aug, [facility] [address] [id number] [place] [address]- 8873 18 Jul, 2012 [facility] [address] [id number] [place] [address]- 5836 08 Jul, 2012 [facility] [address] [id number] [place] [address]- 8660 07 Jul, 2012 [facility] [address] [id number] [place] [address] 06 Jul, 2012 [facility] [address] [id number] [place] [address]287 05 Jul, 2012 [facility] [address] [id number] [place] [address] Jun, [facility] [address] [id number], [place] [address] Jun, [facility] [place] [facility] [address] [id number] [place] [address] Jun, [facility] [address] [id number] [place] [address] 12[address] May, [facility] [place] [facility] [address] [id number] [place] [address]48 May, [facility] [address] [id number] [place] [address] May, [facility] [place] [facility] [address] [id number] [place] [address] 67[address] May, [facility] [place] [facility] [address] [id number] [place] [address] 1740 May, [facility] [place] [facility] [address] [id number] [place] [address]- [address] May, [facility] [place] [facility] [address] [id number] [place] [address]- 7935 May, [facility] [place] [facility] [address] [id number] [place] [address]- 7680 Apr, [facility] [place] [facility] [address] [id number] [place] [address]- 8866 Apr, [facility] [place] [facility] [address] [id number] [place] [address]- 1065 Apr, [facility] [place] [facility] [address] [id number] [place] [address]- 8621 Apr, [facility] [place] [facility] [address] [id number] [place] [address]- [address] Apr, [facility] [place] [facility] [address] [id number] [place] [address]- 8274 Apr, [facility] [place] [facility] [address] [id number] [place] [address]- 5071 Apr, [facility] [place] [facility] [address] [id number] [place] [address]- 3829 Apr, [facility] [place] [facility] [address] [id number] [place] [address]- 2596 Apr, [facility] [place] [facility] [address] [id number] [place] [address]- 9753 Apr, [facility] [place] [facility] [address] [id number] [place] [address]- 5579 Apr, [facility] [place] [facility] [address] [id number] [place] [address]798 Mar, [facility] [place] [facility] [address] [id number] [place] [address]- 8039 Mar, [facility] [place] [facility] [address] [id number] [place] [address]- 9216 Mar, [facility] [place] [facility] [address] [id number] [place] [address]- 3791 Mar, [facility] [place] [facility] [address] [id number] [place] [address]- 0879 Mar, [facility] [place] [facility] [address] [id number] [place] [address] 7683 Mar, [facility] [place] [facility] [address] [id number] [place] [address]- 5756 Mar, [facility] [place] [facility] [address] [id number] [place] [address]- 0296 Mar, [facility] [place] [facility] [address] [id number] [place] [address]- 7582 Mar, [facility] [place] [facility] [address] [id number] [place] [address]- 7113 16 Mar, 2012 [facility] [place] [facility] [address] [id number] [place] [address] 8430 Mar, [facility] [place] [facility] [address] [id number] [place] [address] 2012 [facility] [place] [facility] [address] [id number] [place] [address] 4963 27 Feb, 2012 [facility] [place] [facility] [address] [id number] [place] [address]- 1817 27 Feb, 2012 [facility] [place] [facility] [address] [id number] [place] [address]- 1292 26 Feb, 2011 [facility] [place] [facility] [address] [id number] [place] [address]- 0630 24 Feb, 2012 [facility] [place] [facility] [address] [id number] [place] [address]- 1656 Feb, [facility] [place] [facility] [address] [id number] [place] [address]- 1336 Feb, [facility] [place] [facility] [address] [id number] [place] [address] 1876 Feb, [facility] [place] [facility] [address] [id number] [place] [address]- 2566 Feb, [facility] [place] [facility] [address] [id number] [place] [address]- 7020 Jan, [facility] [place] [facility] [address] [id number] [place] [address]- 7099 Jan, [facility] [place] [facility] [address] [id number] [place] [address]- 1111 Jan, [facility] [place] [facility] [address] [id number] [place] [address]- 4171 Jan, [facility] [place] [facility] [address] [id number] [place] [address]- 3729 Dec, [facility] [place] [facility] [address] [id number] [place] [address]- 4590 Dec, [facility] [place] [facility] [address] [id number] [place] [address]- 2189 Dec, [facility] [place] [facility] [address] [id number] [place] [address]- 0108 Dec, [facility] [place] [facility] [address] [id number] [place] [address]- 7436 Dec, [facility] [place] [facility] [address] [id number] [place] [address]- 0000 Dec, [facility] [place] [facility] [address] [id number] [place] [address]- 5252 Dec, [facility] [place] [facility] [address] [id number] [place] [address]- 2773 Dec, [facility] [address] [id number] [place] [address]- 5900 Dec, [facility] [place] [facility] [address] [id number] [place] [address]- 3662 Dec, [facility] [address] [id number] [place] [address]- 3813 Dec, [facility] [place] [facility] [address] [id number] [place] [address]- 0197 Dec, [facility] [address] [id number] [place] [address]- 5299 Dec, [facility] [address] [id number] [place] [address]- 6232 Dec, [facility] [address] [id number] [place] [address]- 4520 Nov, [facility] [address] [id number] [place] [address]- 7757 Nov, [facility] [place] [facility] [address] [id number] [place] [address]- 0186 Nov, [facility] [address] [id number] [place] [address]- 8596 Nov, [facility] [place] [facility] [address] [id number] [place] [address]- 9772 Nov, [facility] [place] [facility] [address] [id number] [place] [address]- 0370 Nov, [facility] [place] [facility] [address] [id number] [place] [address]- 6414 October, [facility] [place] [facility] [address] [id number] [place] [address]- 6365 October, [facility] [place] [facility] [address] [id number] [place] [address]- 3801 October, [facility] [place] [facility] [address] [id number] [place] [address]- 0100 October, [facility] [facility] [address] [id number] [place] [address] Sep, [facility] [place] [facility] [address] [id number] [place] [address] 17 Sep, 2011 [facility] [place] [facility] [address] [id number] [place] [address] Sep, [facility] [place] [facility] [address] [id number] [place] [address] Sep, [facility] [place] [facility] [address] [id number] [place] [address] Sep, [facility] [place] [facility] [address] [id number] [place] [address] Aug, [facility] [place] [facility] [address] [id number] [place] [address] Aug, [facility] [place] [facility] [address] [id number] [place] [address] Aug, [facility] [place] [facility] [address] [id number] [place] [address] Aug, [facility] [address] [id number] [place] [address] Aug, [facility] [place] [facility] [address] [id number], [place] [address] Aug, [facility] [place] [facility] [address] [id number] [place] [address] Aug, [facility] [place] [facility] [address] [id number] [place] [address] Jul, [facility] [place] [facility] [address] [id number] [place] [address] Jul, [facility] [place] [facility] [address] [id number], [place] [address] 15 Jul, 2011 [facility] [address] [id number] [place] [address] Jul, [facility] [address] [facility] [id number], [place] [address] Jun, [facility] [address] [place] [id number] Jun, [facility] [address] [id number], [place] [address] Jun, [facility] [address] [id number] [place] [address] Jun, [facility] [address] [facility] [id number], [place] [address] Jun, [facility] [address] [id number], [place] [address] Jun, [facility] [address] [facility] [id number], [place] [address] Jun, [facility] [address] [id number], [place] [address] Jun, [facility] [address] [id number], [place] [address] May, [facility] [address] [id number], [place] [address] May, [facility] [address] [id number], [place] [address] May, [facility] [address] [id number] [place] [address]- [address] May, [facility] [address] [facility] [id number] [place] [address]- [address] May, [facility] [address] [facility] [id number], [place] [address] May, [facility] [address] [facility] [id number] [place] [address]- [address]26 02 May, 2011 [facility] [address] [id number] [place] [address] 29 Apr, 2011 [facility] [address] [id number] [place] [address] 17 Apr, 2011 [facility] [address] [id number] [place] [address]- [address]263 Apr, [facility] [address] [id number] [place] [address] 27 Mar, 2011 [facility] [address] [id number] [place] [address]- [address] 20 Mar, 2011 [facility] [address] [id number] [place] [address]- 8746 14 Mar, 2011 [facility] [address] [id number] [place] [address]- 5588 11 Mar, 2011 [facility] [place] [facility] [address] [id number] [place] [address]- 39[address] 10 Mar, 2011 [facility] [place] [address] [id number] [place] [address]- [address] 10 Mar, 2011 [facility] [address] [id number] [place] [address]- [address] 10 Mar, 2011 [facility] [address] [id number] [place] [address]- [address] Jan, [facility] [address] [id number] [place] [address]- 1046 27 May, 2010 [facility] [address] [id number] [place] [address]- [address]69 21 May, 2010 [facility] [address] [id number] [place] [address] 39[address] 13 May, 2010 [facility] [address] [id number] [place] [address] 13 May, 2010 [facility] [address] [id number] [place] [address]- [address] 10 May, 2010 [facility] [address] [id number] [place] [address]- [address] 06 May, 2010 [facility] [address] [id number] [place] [address]- [address] 29 Apr, 2010 [facility] [address] [id number] [place] [address]- [address] Apr, [facility] [address] [id number] [place] [address]- [address] Apr, [facility] [address] [id number] [place] [address]- [address]18 18 Apr, 2010 [facility] [address] [facility] [id number] [place] [address]- [address] 15 Apr, 2010 [facility] [address] [id number], [place] [address] Apr, [facility] [address] [id number] [place] [address]- [address]39 Apr, [facility] [address] [id number], [place] [address] Apr, [facility] [address] [facility] [id number], [place] [address] Apr, [facility] [address] [id number], [place] [address]- [address] Apr, [facility] [address] [id number], [place] [address] Mar, [facility] [address] [id number], [place] [address] 277[address] Mar, [facility] [address] [id number], [place] [address]- [address] Mar, [facility] [address] [id number], [place] [address] Mar, [facility] [address] [facility] [id number] [place] [address] Mar, [facility] [address] [facility] [id number], [place] [address] Dec, [facility] [address] [facility] [id number] [place] [address] Nov, IMMUNIZATIONS No Known Immunizations SOCIAL HISTORY Never Assessed REASON FOR VISIT Controlled Med Refill PLAN OF CARE VITAL SIGNS MEDICATIONS Medication Instructions Dosage Frequency Start Date End Date Duration Status Fentanyl 75 MCG/HR Transdermal every 72 hours 1 patch to skin Nov, 30 days Active RESULTS No Results PROCEDURES [...]
--- OUTSIDE RECORDS SUMMARY | 2018-07-05 15:10 | XMS REPORT ---
Author Author OMKAR SERRANO Organization [facility] Address [address] [place] [address] Care Team Providers Care Sports Marketing Specialist Name Role Phone OMKAR SERRANO Unavailable PROBLEMS Type Condition ICD9-CM Code JOY39-LY Code Onset Dates Condition Status SNOMED Code Problem Anemia, unspecified type D64.9 Active 198438443 Problem Personality disorder F60.9 Active 68057469 Problem Factitious disorder imposed on self, recurrent episode F68.10 Active 61249402 Problem Ventral hernia without obstruction or gangrene K43.9 Active 380572089 Problem Allergic state, subsequent encounter T78.40XD Active 303075970 Problem Anxiety F41.9 Active 38212161 Problem Age-related osteoporosis without current pathological fracture M81.0 Active 03148155 Problem Unspecified psychosis not due to a substance or known physiological condition F29 Active 21398068 Problem Iron deficiency anemia, unspecified iron deficiency anemia type D50.9 Active 28911164 Problem History of CVA with residual deficit I69.30 Active 674030519 Problem Seizure disorder G40.909 Active 944847299 Problem Perennial allergic rhinitis, unspecified allergic rhinitis trigger J30.89 Active 212689895 Problem Chronic kidney disease, unspecified stage N18.9 Active 536232316 Problem Back pain M54.9 Active 604578836 Problem Gastroesophageal reflux disease without esophagitis K21.9 Active 375335589 Problem Insomnia, unspecified type G47.00 Active 991989828 Problem History of colon polyps Z86.010 Active 939711045 ALLERGIES No Information ENCOUNTERS Encounter Location Date Diagnosis [facility] [id number], [place] [address] Feb, [facility] [id number], [place] [address] 7975 Jan, [facility] [id number], [place] [address] 4[address] Jan, [facility] [id number] [place] [address] 73439- 3313 Jan, Back pain M54.9 and Seizure disorder G40.909 [facility] [address] [facility]NOTE 3[facility] [id number] [address] Jan, Back pain M54.9 [facility] [address] [place] [address] 76452- 3743 Jan, Back pain M54.9 [facility] [id number] [place] [address] 54177- 9671 Jan, [facility] [id number], [place] [address] 3148 Jan, Unspecified psychosis not due to a substance or known physiological condition F29 ; Personality disorder F60.9 and Factitious disorder imposed on self, recurrent episode F68.10 [facility] [address], [place] [address] Dec, Back pain M54.9 ; Seizure disorder G40.909 ; Ventral hernia without obstruction or gangrene K43.9 and History of CVA with residual deficit I69.30 [facility] [id number] [address] Dec, Unspecified psychosis not due to a substance or known physiological condition F29 ; Personality disorder F60.9 and Factitious disorder imposed on self, recurrent episode F68.10 [facility] [id number] [address] 9337 Dec, [facility] [id number], [place] [address] 9026 Dec, Back pain M54.9 [facility] [id number] [address] 9881 Dec, Factitious disorder imposed on self, recurrent episode F68.10 ; Personality disorder F60.9 ; Insomnia, unspecified type G47.00 and Anxiety F41.9 [facility] [id number] [place] [address] 19167- 3090 Nov, Unspecified psychosis not due to a substance or known physiological condition F29 ; Personality disorder F60.9 and Factitious disorder imposed on self, recurrent episode F68.10 [facility] [id number] [place] [address] 31269- 2602 Nov, Back pain M54.9 [place] [id number] [place] [address] 85383- 8080 Nov, Unspecified psychosis not due to a substance or known physiological condition F29 ; Personality disorder F60.9 and Factitious disorder imposed on self, recurrent episode F68.10 [facility] [facility] [id number] [place] [address] 94597- 3072 October, [facility] [id number] [place] [address] 37309- 7218 October, [facility] [id number] [place] [address] 03563- 9382 October, Unspecified psychosis not due to a substance or known physiological condition F29 ; Personality disorder F60.9 and Factitious disorder imposed on self, recurrent episode F68.10 [facility] [id number] [place] [address] 31947- 9103 October, Back pain M54.9 [facility] [id number] [place] [address] 14127- 7768 October, Seizure disorder G40.909 ; Back pain M54.9 and Allergic state, subsequent encounter T78.40XD [facility] [id number] [place] [address] 73005- 5849 October, [facility] [id number] [place] [address] 78568- 4895 Sep, Back pain M54.9 [place] [address], [place] [address] 9493 Sep, Unspecified psychosis not due to a substance or known physiological condition F29 ; Personality disorder F60.9 and Factitious disorder imposed on self, recurrent episode F68.10 [facility] [address], [place] [address] 8417 Sep, [facility] [id number] [place] [address] 74590- 2557 Sep, [facility] [id number] [place] [address] 24381- 4759 Sep, [facility] [id number] [place] [address] 53610- 2568 Sep, [facility] [id number] [place] [address] 51415- 0149 Aug, [facility] [id number] [place] [address] 02169- 4953 Aug, Back pain M54.9 [facility] [address] [place] [address] 07226- 9176 15 Aug, 2017 Factitious disorder imposed on self, recurrent episode F68.10 ; Personality disorder F60.9 ; Insomnia, unspecified type G47.00 and Anxiety F41.9 [facility] [address], [place] [address] 57[address] Aug, Back pain M54.9 ; Iron deficiency anemia, unspecified iron deficiency anemia type D50.9 ; Chronic kidney disease, unspecified stage N18.9 and Breast cancer screening Z12.31 [facility] [id number] [place] [address] [id number] Jul, Back pain M54.9 [facility] [id number] [id number] Jul, [facility] [id number] [place] [address] [id number] Jul, [facility] [id number] [address] Jun, Back pain M54.9 [facility] [id number] [address] Jun, [facility] [id number] [address] Jun, Back pain M54.9 [facility] [address] [place] [address] [id number]- 6098 Jun, Back pain M54.9 ; Seizure disorder G40.909 and Age-related osteoporosis without current pathological fracture M81.0 [facility] [id number] [place] [address] [id number] May, [place] [id number] [place] [address] 21208- 4085 May, Back pain M54.9 [facility] [address] [place] [address] 90657- 3210 Apr, Back pain M54.9 ; Encounter for immunization Z23 ; Gastroesophageal reflux disease without esophagitis K21.9 ; Age-related osteoporosis without current pathological fracture M81.0 and Chronic pruritus L29.9 [facility] [id number], [place] [address]- 6850 16 Apr, 2017 History of CVA with residual deficit I69.30 [facility] [address] [place] [address] 80129- 9106 Apr, Factitious disorder imposed on self, recurrent episode F68.10 and Personality disorder F60.9 [facility] [id number] [place] [address] [id number] 08 Apr, 2017 Back pain M54.9 [facility] [address], [place] [address]- 1655 Mar, Factitious disorder imposed on self, recurrent episode F68.10 [facility] [id number], [place] [address]- 6805 Mar, [facility] [id number] [place] [address] [id number] Mar, [facility] [id number] [place] [address] [id number] Mar, Back pain M54.9 [facility] [address] [place] [address] 00519- 2363 Mar, Back pain M54.9 ; Seizure disorder G40.909 and Age-related osteoporosis without current pathological fracture M81.0 [facility] [id number] [place] [address] 65769- 3806 Feb, History of CVA with residual deficit I69.30 [facility] [id number] [place] [address] 12029- 1239 Feb, Factitious disorder imposed on self, recurrent episode F68.10 and Personality disorder F60.9 [facility] [id number] [place] [address] 54806- 8494 15 Feb, 2017 Back pain M54.9 [facility] [id number] [place] [address] 87075- 3333 06 Feb, 2017 [facility] [address] [place] [address] 74204- 4421 Jan, [facility] [address] [place] [id number] Jan, Age- related osteoporosis without current pathological fracture M81.0 and Allergic state, subsequent encounter T78.40XD [facility] [address] [place] [address] 99437- 1694 Jan, Factitious disorder imposed on self, recurrent episode F68.10 and Personality disorder F60.9 [facility] [address] [place] [address] 20329- 9100 Dec, Back pain M54.9 [facility] [id number] [place] [address] 26168- 7433 Dec, Personality disorder F60.9 and Factitious disorder imposed on self, recurrent episode F68.10 [facility] [id number] [id number] Dec, Back pain M54.9 [facility] [id number] [id number] Dec, [facility] [id number] [place] [address] [id number] Dec, [facility] [address], [place] [address]- 2985 Dec, [facility] [id number] [place] [address] 16552- 4795 Nov, [facility] [address], [place] [address]- 4681 Nov, Back pain M54.9 ; Anemia, unspecified type D64.9 and History of colon polyps Z86.010 [facility] [address], [place] [address]- 4881 Nov, Back pain M54.9 [facility] [id number] [place] [address] [id number] October, Back pain M54.9 [facility] [address] [id number] October, Back pain M54.9 and Gastroesophageal reflux disease without esophagitis K21.9 [facility] [id number] [id number] Sep, [facility] [address], [place] [address]- 9645 Sep, [facility] [address], [place] [address]- 3907 Sep, [facility] [id number], [place] [address]- 3927 Sep, [facility] [address] [address]- 1589 Sep, [facility] [address], [place] [address]- 4591 Sep, Seizure disorder G40.909 [facility] [address], [place] [address]- 4434 Sep, Back pain M54.9 [facility] [address], [place] [address]- 1000 Sep, [facility] [address], [place] [address]- 6497 Aug, Back pain M54.9 [facility] [address] [address] 1206 Aug, Seizure disorder G40.909 [facility] [id number] [id number] Aug, [facility] [id number] [place] [address] [id number] 16 Aug, 2016 Back pain M54.9 [facility] [id number] [id number] 14 Aug, 2016 Back pain M54.9 [facility] [id number] [id number] 06 Aug, 2016 Back pain M54.9 [facility] [address] [id number] Jul, Weakness R53.1 [facility] [id number], [place] [address]- 5073 Jul, Seizure disorder G40.909 [facility] [address], [place] [address]- 9828 Jul, [facility] [id number], [place] [address]- 7125 Jul, Breast cancer screening Z12.39 [facility] [address], [place] [address]- 3479 Jul, [facility] [address] [place] [address] 01691- 0581 Jul, [facility] [address] [place] [address] 12266- 6475 Jul, [facility] [address] [place] [address] 75520- 4945 Jul, Seizure disorder G40.909 ; Fatigue, unspecified type R53.83 ; Perennial allergic rhinitis, unspecified allergic rhinitis trigger J30.89 and Chronic kidney disease, unspecified stage N18.9 [facility] [address] [place] [address] 37513- 0570 Jul, [facility] [address] [place] [address] 86903- 8912 Jul, Seizure disorder G40.909 [facility] [address] [place] [address] 49850- 9468 Jun, [facility] [address] [place] [address] 33850- 2720 Jun, [address] [id number] Jun, Perennial allergic rhinitis, unspecified allergic rhinitis trigger J30.89 [facility] [id number] [id number] Jun, [facility] [address], [place] [address]- 9967 Jun, Seizure disorder G40.909 [facility] [id number] [place] [address] [id number] Jun, [facility] [id number] [place] [address] [id number] May, [facility] [address] [place] [address] 26943533- 7925 May, [facility] [address] [facility]NOTE [facility]] [id number] [address]- 3123 May, [facility] [id number] [place] [address] 86623- 6455 May, [facility] [address] [place] [address] 16096- 3000 May, History of CVA with residual deficit I69.30 [facility] [id number] [place] [address] 76840- 8849 May, [facility] [id number] [place] [address] 58477- 6354 May, [facility] [address] [place] [address] 53244- 8661 May, [facility] [id number] [place] [address] 35288- 9677 May, Seizure disorder G40.909 [facility] [address] [place] [address] 51670- 1616 May, [facility] [address] [place] [address] May, Back pain M54.9 and Seizure disorder G40.909 [facility] [address], [place] [address]- 2081 Apr, [facility] [address] [place] [address] 59669- 0176 Apr, Back pain M54.9 [facility] [address], [place] [address]- 1226 Mar, [facility] [address] [place] [address] Mar, Insomnia, unspecified type G47.00 [facility] [address], [place] [address]- 5689 Mar, [facility] [id number], [place] [address]- 1603 Feb, [facility] [address] [place] [address] 02003- 8104 Feb, [facility] [id number] [place] [address] 95372- 0050 Feb, [facility] [id number] [place] [address] 53238- 2568 Jan, [facility] [id number] [place] [address] 07551- 1912 Jan, [facility] [employer] [facility] [address] [place] [address] Jan, Seizure disorder G40.909 and Back pain M54.9 [facility] [id number] [place] [address] 73036- 9700 Dec, [facility] [id number] [place] [address] 46392- 3975 Dec, [facility] [address] [place] [address] 40691- 8879 Dec, [facility] [id number] [place] [address] 79028- 0288 Nov, [facility] [address] [place] [address] 56681- 8530 Nov, [facility] [id number] [place] [address] 01463- 1301 Nov, Back pain M54.9 [facility] [address], [place] [address]- 5390 October, [facility] [id number] [place] [address] 23772- 4457 October, Back pain M54.9 [facility] [address], [place] [address]- 5442 October, Seizure disorder G40.909 and B12 deficiency E53.8 [facility] [address], [place] [address]- 8020 29 Sep, 2015 History of CVA with residual deficit I69.30 [facility] [id number] [place] [address] 95653- 8066 18 Sep, 2015 [facility] [address] [place] [address] 44254- 3024 18 Sep, 2015 [facility] [id number] [place] [address] 09499- 7411 Sep, Back pain M54.9 [facility] [id number] [place] [address] 66541- 5395 Sep, Seizure disorder G40.909 [facility] [address] [place] [address] 51015- 0475 Aug, Back pain M54.9 [facility] [id number] [place] [address] 37495- 8803 18 Aug, 2015 Seizure disorder G40.909 [facility] [id number] [place] [address] 06233- 8763 16 Aug, 2015 Back pain M54.9 [facility] [address] [place] [address] 82658- 0892 14 Aug, 2015 Heart failure, unspecified I50.9 [facility] [address] [place] [address] 02957- 3058 14 Aug, 2015 Medication monitoring encounter Z51.81 [facility] [address] [place] [address] 17620- 3514 15 Jul, 2015 [facility] [address] [place] [address] 44578- 5625 09 Jul, 2015 Seizure disorder G40.909 [facility] [address] [place] [address] 11323- 8563 05 Jul, 2015 Back pain M54.9 [facility] [id number] [address]- 4192 Jun, [facility] [address], [place] [address]- 3211 Jun, [facility] [address], [place] [address]- 5310 Jun, Mental status change R41.82 ; History of CVA with residual deficit I69.30 ; Back pain M54.9 and Seizure disorder G40.909 [facility] [address], [place] [address]- 7696 Jun, [facility] [id number] [place] [address] 96932- 8963 May, [facility] [address], [place] [address]- 7185 Apr, [facility] [address] [place] [address] 22416- 8367 Apr, Medication monitoring encounter Z51.81 [facility] [address], [place] [address]- 1865 Mar, Vomiting R11.10 [facility] [address], [place] [address]- 5647 Mar, [facility] [address], [place] [address]- 2075 Feb, [facility] [address], [place] [address]- 0130 Feb, UTI (urinary tract infection) 599.0 [facility] [address], [place] [address]- 6796 Jan, [facility] [address], [place] [address]- 2546 Jan, [facility] [address] 7540 Jan, [facility] [place] [facility] [address] [id number] [place] [address]- 2790 Dec, [facility] [place] [facility] [address] [id number] [place] [address]- 0171 Dec, [facility] [place] [facility] [address] [id number] [place] [address]- 6301 Dec, [facility] [place] [facility] [address] [id number] [place] [address]- 8854 Dec, [facility] [place] [facility] [address] [id number] [place] [address]- 2476 Nov, UNKNOWN Nov, [facility] [place] [facility] [address] [id number] [place] [address]- 5656 October, [facility] [place] [facility] [address] [id number] [place] [address]- 0818 Sep, [facility] [place] [facility] [address] [id number] [place] [address]- 5194 Sep, [facility] [place] [facility] [address] [id number] [place] [address]- 6964 Aug, [facility] [place] [facility] [address] [id number] [place] [address] Aug, [facility] [place] [facility] [address] [id number] [place] [address] Jul, [facility] [place] [facility] [address] [id number] [place] [address] Jul, [facility] [place] [facility] [address] [id number] [place] [address] Jul, [facility] [place] [facility] [address] [id number] [place] [address] Jul, [facility] [place] [facility] [address] [id number] [place] [address] Jul, [facility] [place] [facility] [address] [id number] [place] [address] Jun, [facility] [address] [id number] [place] [address] Jun, [facility] [place] [facility] [address] [id number] [place] [address] Jun, [facility] [place] [facility] [address] [id number] [place] [address] Jun, [facility] [place] [facility] [address] [id number] [place] [address] Jun, [facility] [place] [facility] [address] [address] [id number] [place] [address] Jun, [facility] [place] [facility] [address] [id number] [place] [address] 1680 Jun, [facility] [place] [facility] [address] [id number] [place] [address] 7[address] Jun, [facility] [place] [facility] [address] [id number] [place] [address] 7397 Jun, [facility] [place] [facility] [address] [id number] [place] [address] 4638 Jun, [facility] [place] [facility] [address] [id number] [place] [address] 7917 Jun, [facility] [place] [facility] [address] [id number] [place] [address]- 7823 Jun, [facility] [place] [facility] [address] [id number], [place] [address] Jun, [facility] [place] [facility] [address] [id number] [place] [address] 2650 Jun, [facility] [place] [facility] [address] [id number] [place] [address] 0179 Jun, [facility] [place] [facility] [address] [id number], [place] [address] 1316 Jun, [facility] [place] [facility] [address] [id number] [place] [address] 0133 Jun, [facility] [address] [id number] [place] [address] 1055 Jun, [facility] [address] [id number] [place] [address] 2452 May, [facility] [address] [id number] [place] [address] May, [facility] [address] [id number] [place] [address] 6356 May, [facility] [address] [id number] [place] [address] 2134 May, [facility] [address] [id number] [place] [address]- 8859 May, [facility] [address] [id number] [place] [address]- 3648 May, [facility] [address] [id number] [place] [address]- 1824 May, [facility] [address] [id number] [place] [address]- 6073 May, [facility] [address] [id number] [place] [address]- 4645 May, [facility] [address] [place] [id number] May, [facility] [address] [id number] [place] [address]- 1410 May, [facility] [address] [id number] [place] [address]- 5479 May, [facility] [place] [facility] [address] [id number] [place] [address] 3621 May, [facility] [address] [id number] [place] [address]- 6676 Apr, [facility] [place] [facility] [address] [id number] [place] [address]- 2940 Apr, [facility] [place] [facility] [address] [id number] [place] [address]- 6125 Apr, [facility] [place] [facility] [address] [id number] [place] [address]- 9640 Apr, [facility] [place] [facility] [address] [id number] [place] [address]- 4679 Apr, [facility] [place] [facility] [address] [id number] [place] [address]- 6383 Apr, [facility] [place] [facility] [address] [id number] [place] [address]- 7851 Mar, [facility] [place] [facility] [address] [id number] [place] [address]- 3396 Mar, [facility] [place] [facility] [address] [id number] [place] [address]- 4323 Mar, [facility] [place] [facility] [address] [id number] [place] [address]- 4029 Mar, [facility] [place] [facility] [address] [id number], [place] [address]- 1673 Mar, [facility] [place] [facility] [address] [id number], [place] [address]- 4846 Mar, [facility] [place] [facility] [address] [id number], [place] [address] 8811 Feb, [facility] [place] [facility] [address] [id number] [place] [address]- 5086 Feb, [facility] [place] [facility] [address] [id number] [place] [address]- 0603 Feb, [facility] [place] [facility] [address] [id number], [place] [address] 4049 Feb, [facility] [place] [facility] [address] [id number], [place] [address]- 3295 Feb, [facility] [place] [facility] [address] [id number] [place] [address]- 7029 Feb, [facility] [place] [facility] [address] [id number] [place] [address]- 1066 Feb, [facility] [place] [facility] [address] [id number] [place] [address]- 6250 Feb, [facility] [place] [facility] [address] [id number] [place] [address]- 5940 Feb, [facility] [place] [facility] [address] [id number] [place] [address]- 6448 Feb, [facility] [address] [place] [id number] Feb, [facility] [place] [facility] [address] [id number] [place] [address]- 2815 Feb, [facility] [place] [facility] [address] [id number] [place] [address]- 2583 Jan, [facility] [place] [facility] [address] [id number] [place] [address]- 9308 Jan, [facility] [place] [facility] [address] [id number] [place] [address]- 6954 Dec, [facility] [place] [facility] [address] [id number] [place] [address]- 7628 Dec, [facility] [place] [facility] [address] [id number] [place] [address]- 9547 Dec, [facility] [place] [facility] [address] [id number] [place] [address]- 1409 Dec, [facility] [place] [facility] [address] [id number] [place] [address]- 8546 Dec, [facility] [place] [facility] [address] [id number] [place] [address]- 4043 Dec, [facility] [place] [facility] [address] [id number] [place] [address]- 6429 Dec, [facility] [place] [facility] [address] [id number] [place] [address]- 0562 Dec, [facility] [place] [facility] [address] [id number] [place] [address]- 0820 Dec, [facility] [place] [facility] [address] [id number] [place] [address]- 2736 Dec, [facility] [place] [facility] [address] [id number] [place] [address]- 5957 Nov, [facility] [place] [facility] [address] [id number] [place] [address]- 3155 Nov, [facility] [place] [facility] [address] [id number] [place] [address]- 0697 Nov, [facility] [place] [facility] [address] [id number] [place] [address]- 9014 Nov, [facility] [place] [facility] [address] [id number] [place] [address]- 2033 Nov, [facility] [place] [facility] [address] [id number] [place] [address]- 0901 Nov, [facility] [place] [facility] [address] [id number] [place] [address]- 1117 Nov, [facility] [place] [facility] [address] [id number] [place] [address]- 1723 Nov, [facility] [place] [facility] [address] [id number] [place] [address]- 3663 Nov, [facility] [place] [facility] [address] [id number] [place] [address]- 8963 Nov, [facility] [place] [facility] [address] [id number] [place] [address]- 2252 Nov, [facility] [place] [facility] [address] [id number] [place] [address]- 9039 Nov, [facility] [place] [facility] [address] [id number] [place] [address]- 0787 Nov, [facility] [place] [facility] [address] [id number] [place] [address]- 2784 Nov, [facility] [place] [facility] [address] [id number] [place] [address]- 6045 October, [facility] [place] [facility] [address] [id number] [place] [address]- 4618 October, [facility] [place] [facility] [address] [id number] [place] [address]- 4700 October, [facility] [place] [facility] [address] [id number] [place] [address]- 0283 October, [facility] [place] [facility] [address] [id number] [place] [address]- 9396 October, [facility] [place] [facility] [address] [id number] [place] [address]- 2097 October, [facility] [place] [facility] [address] [id number] [place] [address]- 3059 October, [facility] [place] [facility] [address] [id number] [place] [address]- 5468 October, [facility] [place] [facility] [address] [id number] [place] [address]- 0964 October, [facility] [place] [facility] [address] [id number] [place] [address]- 6925 October, [facility] [place] [facility] [address] [id number] [place] [address]- 7926 Sep, [facility] [place] [facility] [address] [id number] [place] [address]- 1326 Sep, [facility] [place] [facility] [address] [id number] [place] [address]- 3840 Sep, [facility] [place] [facility] [address] [id number] [place] [address]- 9914 Sep, [facility] [place] [facility] [address] [id number] [place] [address]- 3827 Sep, [facility] [place] [facility] [address] [id number] [place] Sep, [facility] [place] [facility] [address] [id number] [place] [address]- 8686 Sep, [facility] [place] [facility] [address] [id number] [place] [address]- 0820 Sep, [facility] [place] [facility] [address] [id number] [place] [address]- 6349 Sep, [facility] [place] [facility] [address] [id number] [place] [address]- 3968 Sep, [facility] [place] [facility] [address] [id number] [place] [address]- 4269 Aug, [facility] [place] [facility] [address] [id number] [place] [address]- 9398 Aug, [facility] [place] [facility] [address] [id number] [place] [address]- 8646 Aug, [facility] [place] [facility] [address] [id number] [place] [address]- 4866 Aug, [facility] [place] [facility] [address] [id number] [place] [address]- 8760 Aug, [facility] [place] [facility] [address] [id number] [place] [address]- 3435 Aug, [facility] [place] [facility] [address] [id number] [place] [address]- 3805 05 Aug, 2013 [facility] [place] [facility] [address] [id number] [place] [address] Aug, [facility] [place] [facility] [address] [id number] [place] [address]- 2451 Aug, [facility] [place] [facility] [address] [id number] [place] [address]- 1296 Jul, 2013 [facility] [place] [facility] [address] [id number] [place] [address]- 6806 Jul, 2013 [facility] [place] [facility] [address] [id number] [place] [address]- 2546 Jul, 2013 [facility] [place] [facility] [address] [id number] [place] [address]- 2545 Jul, 2013 [facility] [place] [facility] [address] [id number] [place] [address]- 2542 Jul, [facility] [place] [facility] [address] [id number] [place] [address]- 8706 Jul, [facility] [place] [facility] [address] [facility] [id number] [place] [address]- 3936 Jul, [facility] [place] [facility] [address] [id number] [place] [address]- 8663 Jul, 2013 [facility] [place] [facility] [address] [id number] [place] [address]- 7773 Jul, [facility] [place] [facility] [address] [facility]NOTE [facility]] [id number] [place] [address]- 3441 Jul, [facility] [place] [facility] [address] [facility]NOTE [facility]] [id number] [place] [address]- 4696 Jul, [facility] [place] [facility] [address] [id number] [place] [address]- 2549 Jul, 2013 [facility] [place] [facility] [address] [id number] [place] [address]- 2546 Jul, [facility] [place] [facility] [address] [id number] [place] [address]- 1807 Jul, [facility] [place] [facility] [address] [facility]NOTE [facility]] [id number] [place] [address]- 0596 Jul, 2013 [facility] [place] [facility] [address] [id number] [place] [address]- 8364 Jul, [facility] [address] [id number] [place] [address]- 9122 Jun, [facility] [place] [facility] [address] [id number] [place] [address]- 2384 Jun, [facility] [place] [facility] [address] [id number] [place] [address]- 9563 Jun, [facility] [place] [facility] [address] [id number] [place] [address]- 2507 Jun, [facility] [place] [facility] [address] [id number] [place] [address]- 2803 Jun, [facility] [place] [facility] [address] [id number] [place] [address]- 1026 Jun, [facility] [address] [id number] [place] [address]- 7019 May, [facility] [address] [id number] [place] [address]- 6273 May, [facility] [place] [facility] [address] [id number] [place] [address]- 6754 May, [facility] [place] [facility] [address] [id number] [place] [address]- 0954 May, [facility] [place] [facility] [address] [id number] [place] [address]- 2492 Apr, [facility] [place] [facility] [address] [id number] [place] [address]- 3475 Apr, [facility] [place] [facility] [address] [id number] [place] [address]64 Apr, [facility] [place] [facility] [address] [id number] [place] [address]- 7440 Apr, [facility] [place] [facility] [address] [id number] [place] [address]- 7414 Apr, [facility] [place] [facility] [address] [id number] [place] [address]- 5320 Apr, [facility] [place] [facility] [address] [id number] [place] [address]- 8390 Apr, [facility] [place] [facility] [address] [id number] [place] [address]- 1560 Apr, [facility] [place] [facility] [address] [id number] [place] [address]- 8449 Apr, [facility] [place] [facility] [address] [id number] [place] [address]- 0973 Apr, [facility] [place] [facility] [address] [id number] [place] [address]- 3579 Apr, [facility] [place] [facility] [address] [id number] [place] [address]- 9714 Apr, [facility] [place] [facility] [address] [id number] [place] [address]- 2860 Mar, [facility] [place] [facility] [address] [id number] [place] [address]- 5769 28 Mar, 2013 [facility] [place] [facility] [address] [id number] [place] [address]- 3425 16 Mar, 2013 [facility] [place] [facility] [address] [id number] [place] [address]- 8763 16 Mar, 2013 [facility] [place] [facility] [address] [id number], [place] [address]- 0399 15 Mar, 2013 [facility] [place] [facility] [address] [id number] [place] [address]- 2835 15 Mar, 2013 [facility] [place] [facility] [address] [id number] [place] [address]- 1808 27 Feb, 2013 [facility] [place] [facility] [address] [id number], [place] [address]- 5784 25 Feb, 2013 [facility] [place] [facility] [address] [id number], [place] [address]- 6758 25 Feb, 2013 [facility] [place] [facility] [address] [id number] [place] [address]- 1846 23 Feb, 2013 [facility] [place] [facility] [address] [id number] [place] [address] 2546 17 Feb, 2013 [facility] [place] [facility] [address] [id number] [place] [address] 2546 10 Feb, 2013 [facility] [place] [facility] [address] [id number] [place] [address] 2545 04 Feb, 2013 [facility] [place] [facility] [address] [id number] [place] [address]- 8652 Jan, [facility] [place] [facility] [address] [id number] [place] [address]- 2765 Jan, [facility] [place] [facility] [address] [id number] [place] [address]- 2740 Jan, [facility] [place] [facility] [address] [id number] [place] [address]- 4591 Jan, [facility] [place] [facility] [address] [id number] [place] [address]- 1227 Jan, [facility] [place] [facility] [address] [id number] [place] [address]- 4183 Jan, [facility] [place] [facility] [address] [id number] [place] [address]- 9642 Jan, [facility] [place] [facility] [address] [id number] [place] [address]- 1304 Dec, [facility] [place] [facility] [address] [id number] [place] [address]- 8877 Dec, [facility] [place] [facility] [address] [id number] [place] [address]- 0285 Dec, [facility] [place] [facility] [address] [id number] [place] [address]- 3286 Dec, [facility] [place] [facility] [address] [id number] [place] [address]- 9847 Dec, [facility] [address] [id number] [place] [address]- 2349 Dec, [facility] [address] [id number] [place] [address]- 0415 Nov, [facility] [address] [id number] [place] [address]- 3762 Nov, [facility] [address] [id number] [place] [address]- 3333 Nov, [facility] [address] [id number] [place] [address]- 5297 Nov, [facility] [address] [id number] [place] [address]- 7198 October, [facility] [address] [id number] [place] [address]- 5088 October, [facility] [address] [id number] [place] [address]- 0460 October, [facility] [address] [id number] [place] [address]- 4520 October, [facility] [address] [id number] [place] [address]- 1922 Sep, [facility] [address] [id number] [place] [address]- 4422 Sep, [facility] [address] [id number] [place] [address]- 2708 16 Sep, 2012 [facility] [address] [id number] [place] [address]- 4447 Sep, [facility] [address] [id number] [place] [address]- 8737 Sep, [facility] [address] [id number] [place] [address] Sep, [facility] [address] [id number] [place] [address] Sep, [facility] [place] [facility] [address] [id number] [place] [address] Sep, [facility] [address] [id number] [place] [address] Aug, [facility] [place] [facility] [address] [id number] [place] [address] Aug, [facility] [address] [id number] [place] [address] 05 Aug, 2012 [facility] [place] [facility] [address] [id number] [place] [address] 18 Jul, 2012 [facility] [place] [facility] [address] [id number] [place] [address] 08 Jul, 2012 [facility] [place] [facility] [address] [id number] [place] [address] 07 Jul, 2012 [facility] [address] [id number] [place] [address] 06 Jul, 2012 [facility] [place] [facility] [address] [id number] [place] [address] 05 Jul, 2012 [facility] [address] [id number] [place] [address] Jun, [facility] [place] [facility] [address] [id number] [place] [address]46 Jun, [facility] [place] [facility] [address] [id number] [place] [address] Jun, [facility] [place] [facility] [address] [id number] [place] [address] May, [facility] [place] [facility] [address] [id number] [place] [address] 29[address] May, [facility] [place] [facility] [address] [id number] [place] [address] 30[address] May, [facility] [address] [id number] [place] [address] 34[address] May, [facility] [place] [facility] [address] [id number] [place] [address] May, [facility] [address] [id number] [place] [address] May, [facility] [place] [facility] [address] [id number] [place] [address] May, [facility] [place] [facility] [address] [id number] [place] [address]- 6784 Apr, [facility] [place] [facility] [address] [id number] [place] [address]- 4189 Apr, [facility] [address] [id number] [place] [address] 74[address] Apr, [facility] [place] [facility] [address] [id number] [place] [address] Apr, [facility] [place] [facility] [address] [id number] [place] [address]887 Apr, [facility] [address] [id number] [place] [address] 9980 Apr, [facility] [place] [facility] [address] [id number] [place] [address] Apr, [facility] [place] [facility] [address] [id number] [place] [address] 9936 Apr, [facility] [place] [facility] [address] [id number] [place] [address]- [address] Apr, [facility] [place] [facility] [address] [id number] [place] [address] 6235 Apr, [facility] [place] [facility] [address] [id number] [place] [address]- 0696 Apr, [facility] [place] [facility] [address] [id number] [place] [address] 69[address] Mar, [facility] [place] [facility] [address] [id number] [place] [address] 0370 Mar, [facility] [place] [facility] [address] [id number] [place] [address] Mar, [facility] [place] [facility] [address] [id number] [place] [address] Mar, [facility] [place] [facility] [address] [id number] [place] [address] Mar, [facility] [place] [facility] [address] [id number] [place] [address]- [address]327 Mar, [facility] [place] [facility] [address] [id number] [place] [address]- 7694 Mar, [facility] [place] [facility] [address] [id number], [place] [address] Mar, [facility] [place] [facility] [address] [id number] [place] [address]- 4690 Mar, [facility] [place] [facility] [address] [id number], [place] [address] Mar, [facility] [place] [facility] [address] [facility] [id number], [place] [address] Mar, [facility] [place] [facility] [address] [id number], [place] [address] 2012 [facility] [place] [facility] [address] [id number], [place] [address]81 27 Feb, 2012 [facility] [place] [facility] [address] [id number], [place] [address]66 27 Feb, 2012 [facility] [place] [facility] [address] [id number][place] [address] 26 Feb, 2012 [facility] [place] [facility] [address] [id number], [place] [address] 24 Feb, 2012 [facility] [place] [facility] [address] [id number] [place] [address]- 4266 Feb, [facility] [place] [facility] [address] [id number] [place] [address] 2546 Feb, [facility] [place] [facility] [address] [id number] [place] [address]- 4546 Feb, [facility] [place] [facility] [address] [id number] [place] [address] 2546 Feb, [facility] [place] [facility] [address] [id number] [place] [address]- 7361 Jan, [facility] [place] [facility] [address] [id number] [place] [address]- 3541 Jan, [facility] [place] [facility] [address] [id number] [place] [address]- 3315 Jan, [facility] [place] [facility] [address] [id number] [place] [address] 8053 Jan, [facility] [place] [facility] [address] [id number] [place] [address]- 4980 Dec, [facility] [place] [facility] [address] [id number] [place] [address]- 3682 Dec, [facility] [place] [facility] [address] [id number] [place] [address]- 1048 Dec, [facility] [place] [facility] [address] [id number] [place] [address]- 5075 Dec, [facility] [place] [facility] [address] [id number] [place] [address]- 7057 Dec, [facility] [place] [facility] [address] [id number] [place] [address]- 4588 Dec, [facility] [place] [facility] [address] [id number] [place] [address]- 6268 Dec, [facility] [place] [facility] [address] [id number] [place] [address]- 3347 Dec, [facility] [place] [facility] [address] [id number] [place] [address]- 1718 Dec, [facility] [place] [facility] [address] [id number] [place] [address]- 0246 Dec, [facility] [place] [facility] [address] [id number] [place] [address]- 2755 Dec, [facility] [place] [facility] [address] [id number] [place] [address]- 6085 Dec, [facility] [place] [facility] [address] [id number] [place] [address] Dec, [facility] [place] [facility] [address] [id number] [place] [address] Dec, [facility] [place] [facility] [address] [id number] [place] [address] Nov, [facility] [place] [facility] [address] [id number] [place] [address] Nov, [facility] [place] [facility] [address] [id number] [place] [address] Nov, [facility] [place] [facility] [address] [id number] [place] [address] Nov, [facility] [place] [facility] [address] [id number] [place] [address] Nov, [facility] [place] [facility] [address] [id number] [place] [address] Nov, [facility] [place] [facility] [address] [id number] [place] [address] October, [facility] [place] [facility] [address] [id number] [place] [address] October, [facility] [place] [facility] [address] [id number] [place] [address] October, [facility] [address] [id number] [place] [address] October, [facility] [place] [facility] [address] [id number] [place] [address] Sep, [facility] [place] [facility] [address] [id number] [place] [address] 17 Sep, 2011 [facility] [place] [facility] [address] [id number] [place] [address] Sep, [facility] [place] [facility] [address] [id number] [place] [address] Sep, [facility] [place] [facility] [address] [id number] [place] [address] Sep, [facility] [place] [facility] [address] [id number] [place] [address] Aug, [facility] [place] [facility] [address] [id number] [place] [address] Aug, [facility] [place] [facility] [address] [id number] [place] [address] Aug, [facility] [place] [facility] [address] [id number] [place] [address] Aug, [facility] [place] [facility] [address] [id number] [place] [address] Aug, [facility] [place] [facility] [address] [id number] [place] [address] Aug, [facility] [place] [facility] [address] [id number] [place] [address] Aug, [facility] [place] [facility] [address] [id number] [place] [address] Jul, [facility] [place] [facility] [address] [id number] [place] [address] Jul, [facility] [place] [facility] [address] [id number], [place] [address] 15 Jul, 2011 [facility] [address] [facility] [id number], [place] [address] Jul, [facility] [address] [facility]] [id number], [place] [address] Jun, [facility] [address] [id number] Jun, [facility] [address] [id number], [place] [address] Jun, [facility] [address] [id number] [place] [address] Jun, [facility] [address] [facility] 3] [id number] [place] [address] Jun, [facility] [id number], [place] [address] Jun, [facility] [address] [id number] [place] [address] Jun, [facility] [id number], [place] [address] Jun, [facility] [address] [id number], [place] [address] May, [facility] [address] [id number], [place] [address] May, [facility] [address] [id number], [place] [address] May, [facility] [address] [id number] [place] [address] May, [facility] [address] [facility] 3] [id number] [place] [address] May, [facility] [address] [id number] [place] [address] May, [facility] [place] [facility] [address] [id number] [place] [address] 02 May, 2011 [facility] [place] [facility] [address] [id number] [place] [address]- [address]13 29 Apr, 2011 [facility] [place] [facility] [address] [id number] [place] [address] 25[address] Apr, [facility] [place] [facility] [address] [id number] [place] [address] Apr, [facility] [place] [facility] [address] [id number] [place] [address]- 8936 27 Mar, 2011 [facility] [place] [facility] [address] [id number] [place] [address]- 2597 20 Mar, 2011 [facility] [place] [facility] [address] [id number] [place] [address]- 1016 14 Mar, 2011 [facility] [place] [facility] [address] [id number] [place] [address]- [address]150 11 Mar, 2011 [facility] [place] [facility] [address] [id number] [place] [address]- 8613 Mar, [facility] [place] [facility] [address] [id number] [place] [address] 6225 10 Mar, 2011 [facility] [place] [facility] [address] [id number] [place] [address]- [address] Mar, [facility] [place] [facility] [address] [id number] [place] [address] 7031 Jan, [facility] [place] [facility] [address] [id number] [place] [address]- [address] 27 May, 2010 [facility] [place] [facility] [address] [id number] [place] [address] 1278 May, [facility] [place] [facility] [address] [id number] [place] [address]- [address]806 13 May, 2010 [facility] [place] [facility] [address] [id number] [place] [address]- 7189 May, [facility] [place] [facility] [address] [id number] [place] [address]- 3498 10 May, 2010 [facility] [place] [facility] [address] [id number] [place] [address]- 7780 May, [facility] [place] [facility] [address] [id number] [place] [address]- [address]293 29 Apr, 2010 [facility] [place] [facility] [address] [id number] [place] [address]- 5018 Apr, [facility] [place] [facility] [address] [id number] [place] [address]- 6725 Apr, [facility] [place] [facility] [address] [id number] [place] [address]- 8855 18 Apr, 2010 [facility] [place] [facility] [address] [id number] [place] [address]- 6[address] 15 Apr, 2010 [facility] [place] [facility] [address] [id number], [place] [address] Apr, [facility] [place] [facility] [address] [id number] [place] [address]- 3152 Apr, [facility] [place] [facility] [address] [id number], [place] [address]- [address] Apr, [facility] [place] [facility] [address] [id number][place] [address]- 2097 Apr, [facility] [place] [facility] [address] [id number], [place] [address]- 2041 Apr, [facility] [place] [facility] [address] [id number] [place] [address]- 9899 Mar, [facility] [place] [facility] [address] [id number], [place] [address]- [address] Mar, [facility] [place] [facility] [address] [id number], [place] [address]- [address] Mar, [facility] [place] [facility] [address] [facility] 3] [id number] [place] [address] Mar, [facility] [address] [facility]NOTE 3] [id number] [place] [address]- 67[address] Mar, [facility] [address] [facility]NOTE 3] [id number], [place] [address] Dec, [facility] [address] [facility]NOTE 3] [id number] [place] [address]- [address] Nov, IMMUNIZATIONS No Known Immunizations SOCIAL HISTORY Never Assessed REASON FOR VISIT f/u PLAN OF CARE Activity Details Follow Up Next available, 2 Weeks Reason: VITAL SIGNS MEDICATIONS Unknown Medications RESULTS No Results PROCEDURES Procedure Date Ordered Result Body Site Psychotherapy, patient &/family, 30 minutes, established patient December 03, 2017 INSTRUCTIONS MEDICATIONS ADMINISTERED No Known Medications [...]
--- OUTSIDE RECORDS SUMMARY | 2018-07-05 15:11 | XMS REPORT ---
Author Author IRENE PATEL Organization [facility] Address [address] [place] [address] Care Team Providers Care Software Implementation Project Manager Name Role Phone IRENE PATEL Unavailable PROBLEMS Type Condition ICD9-CM Code UOW30-GJ Code Onset Dates Condition Status SNOMED Code Problem Anemia, unspecified type D64.9 Active 528966584 Problem Personality disorder F60.9 Active 79776638 Problem Factitious disorder imposed on self, recurrent episode F68.10 Active 82438794 Problem Ventral hernia without obstruction or gangrene K43.9 Active 519117288 Problem Allergic state, subsequent encounter T78.40XD Active 565911316 Problem Anxiety F41.9 Active 63957285 Problem Age-related osteoporosis without current pathological fracture M81.0 Active 20690676 Problem Unspecified psychosis not due to a substance or known physiological condition F29 Active 41117203 Problem Iron deficiency anemia, unspecified iron deficiency anemia type D50.9 Active 98121966 Problem History of CVA with residual deficit I69.30 Active 518426711 Problem Seizure disorder G40.909 Active 097361320 Problem Perennial allergic rhinitis, unspecified allergic rhinitis trigger J30.89 Active 187257654 Problem Chronic kidney disease, unspecified stage N18.9 Active 243285004 Problem Back pain M54.9 Active 547373104 Problem Gastroesophageal reflux disease without esophagitis K21.9 Active 853165037 Problem Insomnia, unspecified type G47.00 Active 051431944 Problem History of colon polyps Z86.010 Active 444149577 ALLERGIES No Information ENCOUNTERS Encounter Location Date Diagnosis [facility] [id number], [place] [address] Feb, [facility] [id number] [address] 0[address] Jan, [facility] [address] [address] Jan, [place] [id number] [place] [address] 70281- 0982 Jan, Back pain M54.9 [facility] [id number] [address] 9[address] Jan, [facility] [id number] [place] [address] 52770- 8947 Jan, Unspecified psychosis not due to a substance or known physiological condition F29 ; Personality disorder F60.9 and Factitious disorder imposed on self, recurrent episode F68.10 [facility] [id number] [place] [address] 34740- 9645 Dec, Back pain M54.9 ; Seizure disorder G40.909 ; Ventral hernia without obstruction or gangrene K43.9 and History of CVA with residual deficit I69.30 [facility] [id number] [place] [address] 29105- 8685 Dec, Unspecified psychosis not due to a substance or known physiological condition F29 ; Personality disorder F60.9 and Factitious disorder imposed on self, recurrent episode F68.10 [facility] [facility] [address] [address] Dec, [facility] [facility] [address] [address] 4092 Dec, Back pain M54.9 [facility] [address] [place] [address] 45634- 9410 Dec, Factitious disorder imposed on self, recurrent episode F68.10 ; Personality disorder F60.9 ; Insomnia, unspecified type G47.00 and Anxiety F41.9 [place] [address] [address] 8414 Nov, Unspecified psychosis not due to a substance or known physiological condition F29 ; Personality disorder F60.9 and Factitious disorder imposed on self, recurrent episode F68.10 [facility] [address] [address] 1069 Nov, Back pain M54.9 [facility] [address] [place] [address] 24016- 7474 Nov, Unspecified psychosis not due to a substance or known physiological condition F29 ; Personality disorder F60.9 and Factitious disorder imposed on self, recurrent episode F68.10 [facility] [address] [address] October, [facility] [id number] [place] [address] 65506- 2210 October, [facility] [address] [place] [address] 24387- 0528 October, Unspecified psychosis not due to a substance or known physiological condition F29 ; Personality disorder F60.9 and Factitious disorder imposed on self, recurrent episode F68.10 [facility] [address] [address]- 7842 October, Back pain M54.9 [facility] [address] [place] [address] 98745- 1673 October, Seizure disorder G40.909 ; Back pain M54.9 and Allergic state, subsequent encounter T78.40XD [facility] [address], [place] [address] 0293 October, [facility] [address], [place] [address]- 0634 Sep, Back pain M54.9 [facility] [address], [place] [address]- 3260 Sep, Unspecified psychosis not due to a substance or known physiological condition F29 ; Personality disorder F60.9 and Factitious disorder imposed on self, recurrent episode F68.10 [facility] [address] [place] [address] 02588- 5716 Sep, [facility] [id number] [address]- 0840 Sep, [facility] [address] 0046 Sep, [facility] [id number] [address] 7089 Sep, [facility] [address], [place] [address]- 7407 Aug, [facility] [id number] [address]- 3583 Aug, Back pain M54.9 [facility] [address], [place] [address]- 8776 Aug, Factitious disorder imposed on self, recurrent episode F68.10 ; Personality disorder F60.9 ; Insomnia, unspecified type G47.00 and Anxiety F41.9 [facility] [id number] [address]- 6[address] Aug, Back pain M54.9 ; Iron deficiency anemia, unspecified iron deficiency anemia type D50.9 ; Chronic kidney disease, unspecified stage N18.9 and Breast cancer screening Z12.31 [facility] [address] [id number] [id number] Jul, Back pain M54.9 [facility] [id number] [id number] Jul, [facility] [address] [id number] [address] Jul, [facility] [id number] [address] Jun, Back pain M54.9 [facility] [address] [id number] [id number] Jun, [facility] [id number] [place] [address] [id number] Jun, Back pain M54.9 [facility] [address] [place] [address] 41497- 8614 Jun, Back pain M54.9 ; Seizure disorder G40.909 and Age-related osteoporosis without current pathological fracture M81.0 [facility] [id number] [place] [address] [id number] May, [facility] [id number] [place] [address] 07172- 1699 May, Back pain M54.9 [facility] [facility] [id number] [place] [address] 50275- 8533 Apr, Back pain M54.9 ; Encounter for immunization Z23 ; Gastroesophageal reflux disease without esophagitis K21.9 ; Age-related osteoporosis without current pathological fracture M81.0 and Chronic pruritus L29.9 [facility] [address] [place] [address] 93376- 8240 Apr, History of CVA with residual deficit I69.30 [place] [id number] [place] [address] 02323- 4546 Apr, Factitious disorder imposed on self, recurrent episode F68.10 and Personality disorder F60.9 [facility] [id number] [place] [address] [id number] Apr, Back pain M54.9 [facility] [id number] [place] [address] 56041- 1846 Mar, Factitious disorder imposed on self, recurrent episode F68.10 [facility] [address] [place] [address] 06226- 8026 Mar, [facility] [id number] [place] [address] [id number] Mar, [facility] [id number] [place] [address] [id number] Mar, Back pain M54.9 [place] [address], [place] [address]- 3317 05 Mar, 2017 Back pain M54.9 ; Seizure disorder G40.909 and Age-related osteoporosis without current pathological fracture M81.0 [facility] [address], [place] [address]- 3713 19 Feb, 2017 History of CVA with residual deficit I69.30 [facility] [facility] [id number] [place] [address] 84915- 0149 19 Feb, 2017 Factitious disorder imposed on self, recurrent episode F68.10 and Personality disorder F60.9 [facility] [id number] [place] [address] 16501- 4886 15 Feb, 2017 Back pain M54.9 [facility] [address] [place] [address] 49679- 1285 06 Feb, 2017 [place] [facility] [id number] [place] [address] 72301- 9597 Jan, [facility] [address] [id number] Jan, Age- related osteoporosis without current pathological fracture M81.0 and Allergic state, subsequent encounter T78.40XD [facility] [facility] [address] [place] [address] 56939- 6597 Jan, Factitious disorder imposed on self, recurrent episode F68.10 and Personality disorder F60.9 [place] [address], [place] [address]- 3385 Dec, Back pain M54.9 [facility] [address] [place] [address] 07365- 4843 Dec, Personality disorder F60.9 and Factitious disorder imposed on self, recurrent episode F68.10 [facility] [id number] [place] [address] [id number] 13 Dec, 2016 Back pain M54.9 [facility] [id number] [place] [address] [id number] Dec, [facility] [id number] [id number] Dec, [facility] [address] 0459 Dec, [facility] [address], [place] [address]- 2678 Nov, [facility] [address] [place] [address] 80331- 3112 Nov, Back pain M54.9 ; Anemia, unspecified type D64.9 and History of colon polyps Z86.010 [facility] [address] [place] [address] 03707- 1534 Nov, Back pain M54.9 [facility] [id number] [place] [address] [id number] October, Back pain M54.9 [facility] [address] [place] [id number] October, Back pain M54.9 and Gastroesophageal reflux disease without esophagitis K21.9 [facility] [id number] [place] [address] [id number] Sep, [facility] [address], [place] [address]- 5222 Sep, [facility] [address], [place] [address]- 0460 Sep, [facility] [address], [place] [address]- 8152 Sep, [facility] [address] [place] [address] 14916- 0723 Sep, [facility] [address], [place] [address]- 9909 Sep, Seizure disorder G40.909 [facility] [address] [place] [address] 24430- 3372 Sep, Back pain M54.9 [facility] [address], [place] [address]- 7202 Sep, [facility] [address] [place] [address] 10618- 7358 Aug, Back pain M54.9 [facility] [address], [place] [address]- 6315 29 Aug, 2016 Seizure disorder G40.909 [facility] [id number] [place] [address] [id number] Aug, [facility] [id number] [place] [address] [id number] 16 Aug, 2016 Back pain M54.9 [facility] [id number] [place] [address] [id number] 14 Aug, 2016 Back pain M54.9 [facility] [id number] [place] [address] [id number] 06 Aug, 2016 Back pain M54.9 [facility] [address] [place] [address] [id number] Jul, Weakness R53.1 [facility] [address] [place] [address] 69020- 8514 Jul, Seizure disorder G40.909 [facility] [address], [place] [address]- 9540 Jul, [facility] [address] [place] [address] 35355- 8547 Jul, Breast cancer screening Z12.39 [facility] [address] [place] [address] 55806- 1202 Jul, [facility] [address], [place] [address]- 7234 Jul, [facility] [address] [place] [address] 11210- 1853 Jul, [facility] [address], [place] [address]- 5943 Jul, Seizure disorder G40.909 ; Fatigue, unspecified type R53.83 ; Perennial allergic rhinitis, unspecified allergic rhinitis trigger J30.89 and Chronic kidney disease, unspecified stage N18.9 [facility] [address] [place] [address] 90472- 0265 Jul, [facility] [id number] [place] [address] 03177- 9322 Jul, Seizure disorder G40.909 [facility] [id number] [place] [address] 38479- 1028 Jun, [facility] [id number] [place] [address] 16471- 1704 Jun, [facility] and [address] [id number] Jun, Perennial allergic rhinitis, unspecified allergic rhinitis trigger J30.89 [facility] [id number] [place] [address] [id number] Jun, [facility] [id number] [place] [address] 61182- 0446 Jun, Seizure disorder G40.909 [facility] [id number] [place] [address] [id number] Jun, [facility] [id number] [place] [address] [id number] May, [facility] [address] [place] [address] 02183- 6990 May, [facility] [id number] [place] [address] 83362- 9283 May, [facility] [address] [place] [address] 82524- 4709 May, [facility] [id number] [place] [address] 80900- 4351 May, History of CVA with residual deficit I69.30 [facility] [address] [place] [address] 09217- 4676 May, [facility] [id number] [place] [address] 77908- 6757 May, [facility] [id number] [place] [address] 33785- 6123 May, [facility] [id number] [place] [address] 92423- 7201 May, Seizure disorder G40.909 [facility] [id number] [place] [address] 90441- 7986 May, [facility] [address] [place] [address] May, Back pain M54.9 and Seizure disorder G40.909 [facility] [id number] [place] [address] 89690- 4902 Apr, [facility] [id number] [place] [address] 23611- 0401 Apr, Back pain M54.9 [facility] [id number] [place] [address] 77476- 1920 Mar, [facility] [address] [place] [address] Mar, Insomnia, unspecified type G47.00 [facility] [address] [place] [address] 76254- 0134 Mar, [facility] [id number] [place] [address] 88525- 3332 Feb, [facility] [id number] [place] [address] 72786- 0349 Feb, [facility] [address] [place] [address] 78430- 6898 16 Feb, 2016 [facility] [address], [place] [address]- 1412 Jan, [facility] [address] [place] [address] 36523- 1622 Jan, [facility] [address] [place] [address] Jan, Seizure disorder G40.909 and Back pain M54.9 [facility] [id number] [place] [address] 29049- 9217 Dec, [facility] [id number] [place] [address] 69562- 4628 Dec, [facility] [id number] [place] [address] 72810- 7253 Dec, [facility] [id number] [place] [address] 33133- 8995 Nov, [facility] [id number] [place] [address] 45620- 5172 Nov, [facility] [id number] [place] [address] 43216- 6841 Nov, Back pain M54.9 [facility] [address] [place] [address] 13861- 6702 October, [facility] [address] [place] [address] 45569- 4108 October, Back pain M54.9 [facility] [address] [place] [address] 33498- 7115 October, Seizure disorder G40.909 and B12 deficiency E53.8 [facility] [id number] [place] [address] 78576- 7520 Sep, History of CVA with residual deficit I69.30 [facility] [address], [place] [address]- 1683 Sep, [facility] [address] [address]- 3041 18 Sep, 2015 [facility] [address] [place] [address] 92263- 9775 Sep, Back pain M54.9 [facility] [id number] [place] [address] 46948- 4381 Sep, Seizure disorder G40.909 [facility] [id number] [place] [address] 71957- 8724 Aug, Back pain M54.9 [facility] [id number] [place] [address] 66685- 6161 18 Aug, 2015 Seizure disorder G40.909 [facility] [id number] [place] [address] 75412- 9222 16 Aug, 2015 Back pain M54.9 [facility] [id number] [place] [address] 85984- 3468 14 Aug, 2015 Heart failure, unspecified I50.9 [facility] [address] [place] [address] 08666- 1252 14 Aug, 2015 Medication monitoring encounter Z51.81 [facility] [id number] [place] [address] 09102- 0360 15 Jul, 2015 [facility] [id number] [place] [address] 83261- 9621 09 Jul, 2015 Seizure disorder G40.909 [facility] [address], [place] [address]- 6941 05 Jul, 2015 Back pain M54.9 [facility] [id number] [place] [address] 57001- 8510 Jun, [facility] [id number] [place] [address] 90675- 6250 Jun, [facility] [id number] [place] [address] 03485- 4944 Jun, Mental status change R41.82 ; History of CVA with residual deficit I69.30 ; Back pain M54.9 and Seizure disorder G40.909 [facility] [address], [place] [address]- 1646 Jun, [facility] [address] [address]- 5206 May, [facility] [id number] [place] [address] 05870- 0836 Apr, [facility] [address] [place] [address] 60102- 4834 Apr, Medication monitoring encounter Z51.81 [facility] [address], [place] [address]- 2687 Mar, Vomiting R11.10 [facility] [address] [place] [address] 21680- 5036 Mar, [facility] [address], [place] [address]- 4256 Feb, [facility] [address] 9545 Feb, UTI (urinary tract infection) 599.0 [facility] [address], [place] [address]- 7686 Jan, [facility] [address], [place] [address]- 9516 Jan, [facility] [address], [place] [address] 2546 Jan, [facility] [address], [place] [address]- 9236 Dec, [facility] [address], [place] [address]- 2546 Dec, [facility] [address], [place] [address] 2546 Dec, [facility] [place] [facility] [address] [id number] [place] [address]- 9932 Dec, [facility] [place] [facility] [address] [id number] [place] [address]- 4530 Nov, UNKNOWN Nov, [facility] [place] [facility] [address] [id number] [place] [address]- 0696 October, [facility] [place] [facility] [address] [id number] [place] [address]- 6635 Sep, [facility] [place] [facility] [address] [id number] [place] [address]- 4456 Sep, [facility] [place] [facility] [address] [id number] [place] [address]- 5400 Aug, [facility] [place] [facility] [address] [id number] [place] [address]- 2754 Aug, [facility] [place] [facility] [address] [id number] [place] [address]- 1202 Jul, [facility] [place] [facility] [address] [id number] [place] [address]- 1996 Jul, [facility] [place] [facility] [address] [id number] [place] [address]- 3847 Jul, [facility] [place] [facility] [address] [id number] [place] [address]- 8186 Jul, [facility] [place] [facility] [address] [id number] [place] [address]- 2546 Jul, [facility] [place] [facility] [address] [id number] [place] [address]- 7781 Jun, [facility] [place] [facility] [address] [id number] [place] [address]- 8266 Jun, [facility] [place] [facility] [address] [id number] [place] [address]- 5206 Jun, [facility] [place] [facility] [address] [id number] [place] [address] Jun, [facility] [place] [facility] [address] [id number] [place] [address] Jun, [facility] [place] [facility] [address] [id number] [place] [address] Jun, [facility] [place] [facility] [address] [id number] [place] [address] Jun, [facility] [place] [facility] [address] [id number] [place] [address] Jun, [facility] [place] [facility] [address] [id number] [place] [address] Jun, [facility] [place] [facility] [address] [id number] [place] [address] Jun, [facility] [place] [facility] [address] [id number] [place] [address] Jun, [facility] [place] [facility] [address] [id number] [place] [address] Jun, [facility] [place] [facility] [address] [id number] [place] [address] Jun, [facility] [place] [facility] [address] [id number] [place] [address] Jun, [facility] [place] [facility] [address] [id number] [place] [address] Jun, [facility] [place] [facility] [address] [id number] [place] [address] Jun, [facility] [place] [facility] [address] [id number] [place] [address] Jun, [facility] [place] [facility] [address] [id number] [place] [address] Jun, [facility] [place] [facility] [address] [id number] [place] [address] May, [facility] [address] [id number] [place] [address] May, [facility] [place] [facility] [address] [address] [id number] [place] [address] May, [facility] [address] [id number] [place] [address] 7[address] May, [facility] [place] [facility] [address] [id number] [place] [address] 4097 May, [facility] [place] [facility] [address] [id number] [place] [address] 8765 May, [facility] [place] [facility] [address] [id number] [place] [address]- 4418 May, [facility] [address] [id number] [place] [address]- 2320 May, [facility] [place] [facility] [address] [id number] [place] [address]17 May, [facility] [address] [id number] May, [facility] [address] [id number], [place] [address] 8[address] May, [facility] [place] [facility] [address] [id number][place] [address] 0[address] May, [facility] [place] [facility] [address] [id number], [place] [address] 7[address] May, [facility] [place] [facility] [address] [id number], [place] [address]- 9827 Apr, [facility] [place] [facility] [address] [id number] [place] [address]- 9316 Apr, [facility] [place] [facility] [address] [id number], [place] [address] 39[address] Apr, [facility] [place] [facility] [address] [id number], [place] [address]158 Apr, [facility] [place] [facility] [address] [id number] [place] [address]- 0629 Apr, [facility] [place] [facility] [address] [id number] [place] [address]- 5301 Apr, [facility] [place] [facility] [address] [id number] [place] [address] 0678 Mar, [facility] [place] [facility] [address] [id number] [place] [address]- 4709 Mar, [facility] [place] [facility] [address] [id number] [place] [address]- 6500 Mar, [facility] [place] [facility] [address] [id number] [place] [address]- 1063 Mar, [facility] [place] [facility] [address] [facility] [id number] [place] [address] 4988 Mar, [facility] [place] [facility] [address] [id number] [place] [address]- 1288 Mar, [facility] [place] [facility] [address] [id number] [place] [address]- 9550 24 Feb, 2014 [facility] [place] [facility] [address] [id number] [place] [address]- 9746 24 Feb, 2014 [facility] [place] [facility] [address] [id number] [place] [address]- 1327 23 Feb, 2014 [facility] [place] [facility] [address] [id number], [place] [address]- 4783 23 Feb, 2013 [facility] [place] [facility] [address] [id number] [place] [address]- 3861 19 Feb, 2014 [facility] [place] [facility] [address] [id number] [place] [address]- 5210 19 Feb, 2014 [facility] [place] [facility] [address] [facility] [id number] [place] [address]- 0417 19 Feb, 2013 [facility] [place] [facility] [address] [id number] [place] [address]- 5027 Feb, [facility] [place] [facility] [address] [id number] [place] [address]- 3247 Feb, [facility] [place] [facility] [address] [id number] [place] [address] 7722 Feb, [facility] [address] [facility] [id number] Feb, [facility] [place] [facility] [address] [id number] [place] [address]- 3568 Feb, [facility] [place] [facility] [address] [id number] [place] [address] 8508 Jan, [facility] [place] [facility] [address] [id number] [place] [address]- 5812 Jan, [facility] [place] [facility] [address] [id number] [place] [address]- 2155 Dec, [facility] [place] [facility] [address] [id number] [place] [address]- 5138 Dec, [facility] [place] [facility] [address] [id number] [place] [address]- 6751 Dec, [facility] [place] [facility] [address] [id number] [place] [address]- 5701 Dec, [facility] [place] [facility] [address] [id number] [place] [address]- 3697 Dec, [facility] [place] [facility] [address] [id number] [place] [address]- 9025 Dec, [facility] [place] [facility] [address] [id number] [place] [address]- 7407 Dec, [facility] [place] [facility] [address] [id number] [place] [address]- 3631 Dec, [facility] [place] [facility] [address] [id number] [place] [address]- 7957 Dec, [facility] [place] [facility] [address] [id number] [place] [address]- 6015 Dec, [facility] [place] [facility] [address] [id number] [place] [address]- 5381 Nov, [facility] [place] [facility] [address] [id number] [place] [address]- 7670 Nov, [facility] [place] [facility] [address] [id number] [place] [address]- 8556 Nov, [facility] [place] [facility] [address] [id number] [place] [address]- 5878 Nov, [facility] [place] [facility] [address] [id number] [place] [address]- 7066 Nov, [facility] [place] [facility] [address] [id number] [place] [address]- 6460 Nov, [facility] [place] [facility] [address] [id number] [place] [address]- 1635 Nov, [facility] [place] [facility] [address] [id number] [place] [address]- 7316 Nov, [facility] [place] [facility] [address] [id number] [place] [address]- 8807 Nov, [facility] [place] [facility] [address] [id number] [place] [address]- 8145 Nov, [facility] [place] [facility] [address] [id number] [place] [address]- 1078 Nov, [facility] [place] [facility] [address] [id number] [place] [address]- 3037 Nov, [facility] [place] [facility] [address] [id number] [place] [address]- 7616 Nov, [facility] [place] [facility] [address] [id number] [place] [address]- 1515 Nov, [facility] [place] [facility] [address] [id number] [place] [address]- 0569 October, [facility] [place] [facility] [address] [id number] [place] [address] 9860 October, [facility] [place] [facility] [address] [id number] [place] [address]- 7109 October, [facility] [place] [facility] [address] [id number] [place] [address]- 7510 October, [facility] [place] [facility] [address] [id number] [place] [address]- 1354 October, [facility] [place] [facility] [address] [id number] [place] [address]- 0454 October, [facility] [place] [facility] [address] [id number] [place] [address]- 1371 October, [facility] [place] [facility] [address] [id number] [place] [address]- 7103 October, [facility] [place] [facility] [address] [id number] [place] [address]- 6070 October, [facility] [place] [facility] [address] [id number] [place] [address]- 8981 October, [facility] [place] [facility] [address] [id number] [place] [address]- 7095 Sep, [facility] [place] [facility] [address] [id number] [place] [address]- 0223 Sep, [facility] [place] [facility] [address] [id number] [place] [address]- 7315 Sep, [facility] [place] [facility] [address] [id number] [place] [address]- 5705 Sep, [facility] [place] [facility] [address] [id number] [place] [address]- 8802 Sep, [facility] [place] [facility] [address] [id number] [place] [address]- 5683 Sep, [facility] [place] [facility] [address] [id number] [place] [address]- 9020 Sep, [facility] [place] [facility] [address] [id number] [place] [address]- 7242 Sep, [facility] [place] [facility] [address] [id number] [place] [address]- 8666 Sep, [facility] [place] [facility] [address] [id number] [place] [address]- 3351 Sep, [facility] [place] [facility] [address] [id number] [place] [address]- 1826 Aug, [facility] [place] [facility] [address] [id number] [place] [address]- 0604 Aug, [facility] [place] [facility] [address] [id number] [place] [address]- 9106 Aug, [facility] [place] [facility] [address] [id number] [place] [address]- 5646 Aug, [facility] [place] [facility] [address] [id number] [place] [address]- 4955 Aug, [facility] [place] [facility] [address] [id number] [place] [address]- 1236 Aug, [facility] [place] [facility] [address] [id number] [place] [address]- 8751 Aug, [facility] [place] [facility] [address] [id number] [place] [address]- 5683 Aug, [facility] [place] [facility] [address] [id number] [place] [address]- 7340 Aug, [facility] [place] [facility] [address] [id number] [place] [address]- 5614 Jul, [facility] [place] [facility] [address] [id number] [place] [address]- 0706 Jul, [facility] [place] [facility] [address] [id number] [place] [address]- 8817 Jul, [facility] [place] [facility] [address] [id number] [place] [address]- 2756 Jul, [facility] [place] [facility] [address] [id number] [place] [address]- 3426 Jul, [facility] [place] [facility] [address] [facility] [id number] [place] [address]- 1956 Jul, [facility] [place] [facility] [address] [id number] [place] [address]- 9535 Jul, [facility] [place] [facility] [address] [id number] [place] [address]- 9266 Jul, [facility] [place] [facility] [address] [id number] [place] [address]- 2106 Jul, [facility] [place] [facility] [address] [facility] [id number] [place] [address]- 7570 Jul, [facility] [place] [facility] [address] [facility] [id number] [place] [address]- 6985 Jul, [facility] [place] [facility] [address] [facility] [id number] [place] [address]- 6048 Jul, [facility] [place] [facility] [address] [facility] [id number] [place] [address]- 0381 Jul, [facility] [place] [facility] [address] [facility] [id number] [place] [address]- 6856 Jul, [facility] [place] [facility] [address] [facility] [id number] [place] [address]- 4380 Jul, [facility] [place] [facility] [address] [id number] [place] [address]- 7619 Jul, [facility] [place] [facility] [address] [facility] [id number] [place] [address]- 4774 Jun, [facility] [place] [facility] [address] [facility] [id number] [place] [address]- 3248 Jun, [facility] [place] [facility] [address] [id number] [place] [address]- 7219 Jun, [facility] [address] [id number] [place] [address]- 7345 Jun, [facility] [address] [id number] [place] [address]- 6019 Jun, [facility] [address] [id number] [place] [address]- 3420 Jun, [facility] [address] [id number] [place] [address]- 2331 May, [facility] [address] [id number] [place] [address]- 9714 May, [facility] [address] [id number] [place] [address]- 0019 May, [facility] [address] [id number] [place] [address]- 0498 May, [facility] [address] [id number] [place] [address]- 4643 Apr, [facility] [address] [id number] [place] [address]- 5042 Apr, [facility] [address] [id number] [place] [address]- 2384 Apr, [facility] [address] [id number] [place] [address]- 0343 Apr, [facility] [place] [facility] [address] [id number] [place] [address]- 5495 Apr, [facility] [place] [facility] [address] [id number] [place] [address]- 9759 Apr, [facility] [place] [facility] [address] [id number] [place] [address]- 0211 Apr, [facility] [place] [facility] [address] [id number], [place] [address]- 2304 Apr, [facility] [place] [facility] [address] [id number] [place] [address]- 8754 18 Apr, 2013 [facility] [place] [facility] [address] [id number] [place] [address]- 9200 18 Apr, 2013 [facility] [place] [facility] [address] [id number] [place] [address]- 2207 Apr, [facility] [place] [facility] [address] [id number] [place] [address]- 7581 Apr, [facility] [place] [facility] [address] [id number] [place] [address]- 0586 28 Mar, 2013 [facility] [place] [facility] [address] [id number] [place] [address]- 0720 28 Mar, 2013 [facility] [place] [facility] [address] [id number] [place] [address]- 9520 16 Mar, 2013 [facility] [place] [facility] [address] [id number] [place] [address]- 6248 16 Mar, 2013 [facility] [place] [facility] [address] [id number] [place] [address]- 3615 15 Mar, 2013 [facility] [place] [facility] [address] [id number] [place] [address]- 6848 15 Mar, 2013 [facility] [place] [facility] [address] [id number], [place] [address]- 9329 27 Sep, 2012 [facility] [place] [facility] [address] [id number], [place] [address]- 4149 25 Sep, 2012 [facility] [place] [facility] [address] [id number] [place] [address] 2544 25 Sep, 2012 [facility] [place] [facility] [address] [id number] [place] [address]- 5645 23 Sep, 2012 [facility] [place] [facility] [address] [id number] [place] [address]- 0390 17 Sep, 2012 [facility] [place] [facility] [address] [id number] [place] [address]- 2404 10 Feb, 2013 [facility] [address] [id number] [place] [address]- 7865 Feb, [facility] [place] [facility] [address] [id number] [place] [address]- 7065 Jan, [facility] [address] [id number] [place] [address]- 9321 Jan, [facility] [address] [id number] [place] [address]- 6399 Jan, [facility] [address] [id number] [place] [address]- 9738 Jan, [facility] [address] [id number] [place] [address]- 7359 Jan, [facility] [address] [id number] [place] [address]- 4693 Jan, [facility] [address] [id number] [place] [address]- 1928 Jan, [facility] [place] [facility] [address] [id number] [place] [address]- 6299 Dec, [facility] [address] [id number] [place] [address]- 2789 Dec, [facility] [place] [facility] [address] [id number] [place] [address]- 7575 Dec, [facility] [place] [facility] [address] [id number] [place] [address]- 2350 Dec, [facility] [place] [facility] [address] [id number] [place] [address]- 0690 Dec, [facility] [place] [facility] [address] [id number] [place] [address]- 2546 Dec, [facility] [place] [facility] [address] [id number] [place] [address]- 8868 Nov, [facility] [address] [id number] [place] [address]- 7423 Nov, [facility] [place] [facility] [address] [id number] [place] [address]- 3184 Nov, [facility] [address] [id number] [place] [address]- 4958 Nov, [facility] [place] [facility] [address] [id number] [place] [address]- 0590 October, [facility] [address] [id number] [place] [address]- 7685 October, [facility] [place] [facility] [address] [id number] [place] [address]- 9099 October, [facility] [address] [id number] [place] [address]- 4688 October, [facility] [address] [id number] [place] [address]- 9083 Sep, [facility] [place] [facility] [address] [id number] [place] [address]- 3909 Sep, [facility] [place] [facility] [address] [id number] [place] [address]- 0682 Sep, [facility] [place] [facility] [address] [id number] [place] [address]- 2799 Sep, [facility] [place] [facility] [address] [id number] [place] [address]- 9433 Sep, [facility] [place] [facility] [address] [id number] [place] [address]- 2971 Sep, [facility] [place] [facility] [address] [id number] [place] [address]- 9557 Sep, [facility] [place] [facility] [address] [id number] [place]38 Sep, [facility] [place] [facility] [address] [id number] [place] [address]- 8590 13 Aug, 2012 [facility] [address] [id number] [place] [address]- 3867 13 Aug, 2012 [facility] [address] [id number] [place] [address]- 9311 05 Aug, 2012 [facility] [address] [id number] [place] [address]- 6556 18 Jul, 2012 [facility] [address] [id number] [place] [address]- 9789 08 Jul, 2012 [facility] [address] [id number] [place] [address]- 6312 07 Jul, 2012 [facility] [address] [id number] [place] [address]- 1032 06 Jul, 2012 [facility] [address] [id number] [place] [address]- 0347 05 Jul, 2012 [facility] [address] [id number] [place] [address]- 8454 Jun, [facility] [address] [id number] [place] [address]- 0186 Jun, [facility] [address] [id number] [place] [address]- 0287 08 Jun, 2012 [facility] [address] [id number] [place] [address]- 2879 May, [facility] [address] [id number] [place] [address]- 1220 May, [facility] [address] [id number] [place] [address]- 9814 May, [facility] [address] [id number] [place] [address]- 2546 May, [facility] [address] [id number] [place] [address]- 4589 May, [facility] [place] [facility] [address] [id number] [place] [address]- 8856 May, [facility] [place] [facility] [address] [id number] [place] [address]- 1748 May, [facility] [place] [facility] [address] [id number] [place] [address]- 2098 Apr, [facility] [place] [facility] [address] [id number] [place] [address]- 5135 Apr, [facility] [place] [facility] [address] [id number] [place] [address]- 6285 Apr, [facility] [place] [facility] [address] [id number] [place] [address]- 0[address] Apr, [facility] [place] [facility] [address] [id number] [place] [address] 288[address] Apr, [facility] [place] [facility] [address] [id number] [place] [address] Apr, [facility] [place] [facility] [address] [id number] [place] [address] Apr, [facility] [place] [facility] [address] [id number] [place] [address]672 Apr, [facility] [place] [facility] [address] [id number] [address] Apr, [facility] [place] [facility] [address] [id number], [place] [address] Apr, [facility] [place] [facility] [address] [id number], [place] [address] Apr, [facility] [place] [facility] [address] [id number], [place] [address] Mar, [facility] [place] [facility] [address] [id number], [place] [address] Mar, [facility] [place] [facility] [address] [id number], [place] [address] Mar, [facility] [place] [facility] [address] [id number] [place] [address]262 Mar, [facility] [place] [facility] [address] [id number] [place] [address] 477[address] Mar, [facility] [place] [facility] [address] [id number] [place] [address] 7066 Mar, [facility] [place] [facility] [address] [id number] [place] [address] 1498 Mar, [facility] [place] [facility] [address] [id number] [place] [address]- [address]4 19 Mar, 2012 [facility] [place] [facility] [address] [id number] [place] [address]- 4586 16 Mar, 2012 [facility] [place] [facility] [address] [id number] [place] [address]- 5056 16 Mar, 2012 [facility] [place] [facility] [address] [id number] [place] [address]- 0878 04 Mar, 2012 [facility] [place] [facility] [address] [id number] [place] [address]- [address] 28 Sep, 2011 [facility] [place] [facility] [address] [id number] [place] [address]- [address]96 27 Sep, 2011 [facility] [place] [facility] [address] [id number], [place] [address] 2544 27 Sep, 2011 [facility] [place] [facility] [address] [id number], [place] [address]- 2542 26 Sep, 2011 [facility] [place] [facility] [address] [id number] [place] [address] 4634 24 Sep, 2011 [facility] [place] [facility] [address] [id number] [place] [address]- 2501 19 Sep, 2011 [facility] [place] [facility] [address] [id number] [place] [address] 18 Sep, 2011 [facility] [place] [facility] [address] [id number] [place] [address] Feb, [facility] [place] [facility] [address] [id number] [place] [address] Feb, [facility] [place] [facility] [address] [id number] [place] [address] Jan, [facility] [place] [facility] [address] [id number] [place] [address] 289[address] Jan, [facility] [place] [facility] [address] [id number] [place] [address] 37[address] Jan, [facility] [place] [facility] [address] [id number] [place] [address] Jan, [facility] [place] [facility] [address] [id number] [place] [address] 6100 Dec, [facility] [place] [facility] [address] [id number] [place] [address] 9[address] Dec, [facility] [place] [facility] [address] [id number] [place] [address] 1511 Dec, [facility] [place] [facility] [address] [id number] [place] [address] Dec, [facility] [place] [facility] [address] [id number] [place] [address]200 Dec, [facility] [place] [facility] [address] [id number] [place] [address]- 7950 Dec, [facility] [place] [facility] [address] [id number] [place] [address] 1605 Dec, [facility] [place] [facility] [address] [id number] [place] [address]- [address] Dec, [facility] [place] [facility] [address] [id number] [place] [address]- 8086 Dec, [facility] [place] [facility] [address] [id number] [place] [address] 6854 Dec, [facility] [place] [facility] [address] [id number] [place] [address]- 2441 Dec, [facility] [place] [facility] [address] [id number] [place] [address]- 2205 Dec, [facility] [place] [facility] [address] [id number] [place] [address]- 0903 Dec, [facility] [place] [facility] [address] [id number] [place] [address]- 6525 Dec, [facility] [place] [facility] [address] [id number] [place] [address]- 8075 Nov, [facility] [place] [facility] [address] [id number] [place] [address]- 8259 Nov, [facility] [place] [facility] [address] [id number] [place] [address]- 0467 Nov, [facility] [place] [facility] [address] [id number] [place] [address]- 4629 Nov, [facility] [place] [facility] [address] [id number] [place] [address]- 1542 Nov, [facility] [place] [facility] [address] [id number] [place] [address]- 3922 Nov, [facility] [place] [facility] [address] [id number] [place] [address] 2002 October, [facility] [place] [facility] [address] [id number] [place] [address]- 0914 October, [facility] [place] [facility] [address] [id number] [place] [address]- [address]303 October, [facility] [place] [facility] [address] [id number] [place] [address]- 0060 October, [facility] [place] [facility] [address] [id number] [place] [address]- 4132 Sep, [facility] [place] [facility] [address] [id number] [place] [address]- 9053 17 Sep, 2011 [facility] [address] [id number] [place] [address]- 0441 13 Sep, 2011 [facility] [place] [facility] [address] [id number] [place] [address]- 1334 09 Sep, 2011 [facility] [place] [facility] [address] [id number] [place] [address]- 8693 Sep, [facility] [place] [facility] [address] [id number] [place] [address]- 8037 26 Aug, 2011 [facility] [place] [facility] [address] [id number] [place] [address]- 4955 26 Aug, 2011 [facility] [place] [facility] [address] [id number] [place] [address]- 7409 Aug, [facility] [place] [facility] [address] [id number] [place] [address]- 4946 Aug, [facility] [place] [facility] [address] [id number] [place] [address]- 2544 Aug, [facility] [place] [facility] [address] [id number] [place] [address]- 9889 Aug, [facility] [place] [facility] [address] [facility] [id number] [place] [address]- 7513 Aug, [facility] [place] [facility] [address] [id number] [place] [address]- 8513 16 Jul, 2011 [facility] [place] [facility] [address] [id number] [place] [address]- 2918 16 Jul, 2011 [facility] [place] [facility] [address] [id number] [place] [address]- 5948 15 Jul, 2011 [facility] [place] [facility] [address] [id number] [place] [address]- 6008 15 Jul, 2011 [facility] [place] [facility] [address] [id number] [place] [address]- [address]173 Jun, Counts include 234 beds at the [facility] [facility] [address], [place] [id number] Jun, [facility] [address] [id number] [place] [address] Jun, [facility] [address] [id number] [place] [address] Jun, [facility] [address] [id number] [place] [address] Jun, [facility] [address] [id number] [place] [address] Jun, [facility] [address] [id number] [place] [address] Jun, [facility] [address] [facility] [id number] [place] [address] Jun, [facility] [address] [id number] [place] [address] May, [facility] [address] [id number] [place] [address] May, [facility] [address] [id number] [place] [address] May, [facility] [address] [facility] [id number] [place] [address] May, [facility] [address] [id number] [place] [address] May, [facility] [address] [id number] [place] [address] May, [facility] [address] [id number] [place] [address] May, [facility] [address] [id number] [place] [address] Apr, [facility] [address] [id number] [place] [address] Apr, [facility] [place] [facility] [address] [id number] [place] [address] 03 Apr, 2011 [facility] [place] [facility] [address] [id number] [place] [address] 27 Mar, 2011 [facility] [place] [facility] [address] [id number] [place] [address] 20 Mar, 2011 [facility] [place] [facility] [address] [id number] [place] [address] 14 Mar, 2011 [facility] [place] [facility] [address] [id number] [place] [address] 11 Mar, 2011 [facility] [place] [facility] [address] [id number] [place] [address] 10 Mar, 2011 [facility] [place] [facility] [address] [id number] [place] [address] 10 Mar, 2011 [facility] [place] [facility] [address] [id number] [place] [address] 10 Mar, 2011 [facility] [place] [facility] [address] [id number] [place] [address] Jan, [facility] [place] [facility] [address] [id number] [place] [address] 27 May, 2010 [facility] [place] [facility] [address] [id number] [place] [address] 21 May, 2010 [facility] [place] [facility] [address] [id number] [address] 13 May, 2010 [facility] [place] [facility] [address] [id number] [place] [address] 13 May, 2010 [facility] [place] [facility] [address] [id number] [place] [address] 10 May, 2010 [facility] [place] [facility] [address] [id number] [place] [address] 06 May, 2010 [facility] [place] [facility] [address] [id number] [place] [address] 29 Apr, 2010 [facility] [place] [facility] [address] [id number] [place] [address] Apr, [facility] [place] [facility] [address] [id number] [place] [address] Apr, [facility] [place] [facility] [address] [id number] [place] [address] Apr, [facility] [place] [facility] [address] [id number] [place] [address] 15 Apr, 2010 [facility] [place] [facility] [address] [id number] [place] [address] Apr, [facility] [place] [facility] [address] [id number] [place] [address] Apr, [facility] [place] [facility] [address] [facility] [id number] [place] [address] Apr, [facility] [place] [facility] [address] [id number] [place] [address] Apr, [facility] [place] [facility] [address] [id number] [place] [address] Apr, [facility] [place] [facility] [address] [facility] [id number] [place] [address] Mar, [facility] [place] [facility] [address] [id number] [place] [address] Mar, [facility] [place] [facility] [address] [id number], [place] [address] Mar, [facility] [place] [facility] [address] [id number] [place] [address] Mar, [facility] [place] [facility] [address] [facility] [id number] [place] [address] Mar, [facility] [place] [facility] [address] [facility] [id number], [place] [address] Dec, [facility] [place] [facility] [address] [facility] [id number] [place] [address] Nov, IMMUNIZATIONS No Known Immunizations SOCIAL HISTORY Never Assessed REASON FOR VISIT DC omeprazole per Pharmacy PLAN OF CARE VITAL SIGNS MEDICATIONS Medication Instructions Dosage Frequency Start Date End Date Duration Status Famotidine 20 mg Orally Once a day 1 tablet at bedtime 24h October, 90 days Active RESULTS No Results PROCEDURES No [...]
--- OUTSIDE RECORDS SUMMARY | 2018-07-05 15:12 | XMS REPORT ---
Author Author OMKAR SERRANO Organization [facility] Address [address] [place] [address] Care Team Providers Care Division Manager Name Role Phone OMKAR SERRANO Unavailable PROBLEMS Type Condition ICD9-CM Code QXI46-CD Code Onset Dates Condition Status SNOMED Code Problem Anemia, unspecified type D64.9 Active 353286701 Problem Personality disorder F60.9 Active 39321016 Problem Factitious disorder imposed on self, recurrent episode F68.10 Active 54453361 Problem Ventral hernia without obstruction or gangrene K43.9 Active 351806331 Problem Allergic state, subsequent encounter T78.40XD Active 376052013 Problem Anxiety F41.9 Active 36454872 Problem Age-related osteoporosis without current pathological fracture M81.0 Active 43276998 Problem Unspecified psychosis not due to a substance or known physiological condition F29 Active 67613983 Problem Iron deficiency anemia, unspecified iron deficiency anemia type D50.9 Active 10822661 Problem History of CVA with residual deficit I69.30 Active 384202161 Problem Seizure disorder G40.909 Active 441062998 Problem Perennial allergic rhinitis, unspecified allergic rhinitis trigger J30.89 Active 677623791 Problem Chronic kidney disease, unspecified stage N18.9 Active 751648997 Problem Back pain M54.9 Active 346208226 Problem Gastroesophageal reflux disease without esophagitis K21.9 Active 667573771 Problem Insomnia, unspecified type G47.00 Active 789244500 Problem History of colon polyps Z86.010 Active 902847563 ALLERGIES No Information ENCOUNTERS Encounter Location Date Diagnosis [facility] [id number] [address] Feb, [facility] [id number] [address] 7559 Jan, [facility] [address] [address] 4[address] Jan, [facility] [id number] [place] [address] 44902- 1048 Jan, Back pain M54.9 [facility] [id number] [address] 7491 Jan, [facility] [id number] [place] [address] 82869- 6072 Jan, Unspecified psychosis not due to a substance or known physiological condition F29 ; Personality disorder F60.9 and Factitious disorder imposed on self, recurrent episode F68.10 [facility] [id number] [place] [address] 27155- 3008 Dec, Back pain M54.9 ; Seizure disorder G40.909 ; Ventral hernia without obstruction or gangrene K43.9 and History of CVA with residual deficit I69.30 [facility] [id number] [place] [address] 97941- 2985 Dec, Unspecified psychosis not due to a substance or known physiological condition F29 ; Personality disorder F60.9 and Factitious disorder imposed on self, recurrent episode F68.10 [facility] [facility] [address] [address] 3350 Dec, [facility] [address] [address]- 2032 Dec, Back pain M54.9 [facility] [address] [place] [address] 48861- 6891 Dec, Factitious disorder imposed on self, recurrent episode F68.10 ; Personality disorder F60.9 ; Insomnia, unspecified type G47.00 and Anxiety F41.9 [facility] [facility] [address] [address] 3617 Nov, Unspecified psychosis not due to a substance or known physiological condition F29 ; Personality disorder F60.9 and Factitious disorder imposed on self, recurrent episode F68.10 [facility] [address] [address]- 7578 Nov, Back pain M54.9 [facility] [address] [place] [address] 19086- 3176 Nov, Unspecified psychosis not due to a substance or known physiological condition F29 ; Personality disorder F60.9 and Factitious disorder imposed on self, recurrent episode F68.10 [facility] [address] [address] 4491 October, [facility] [id number] [place] [address] 06319- 5377 October, [facility] [address] [place] [address] 41398- 2155 October, Unspecified psychosis not due to a substance or known physiological condition F29 ; Personality disorder F60.9 and Factitious disorder imposed on self, recurrent episode F68.10 [facility] [address] [address]- 8052 October, Back pain M54.9 [facility] [address] [place] [address] 37535- 8343 October, Seizure disorder G40.909 ; Back pain M54.9 and Allergic state, subsequent encounter T78.40XD [facility] [address] [address] 3607 October, [facility] [address] [address]- 2211 Sep, Back pain M54.9 [facility] [address] [address]- 1735 Sep, Unspecified psychosis not due to a substance or known physiological condition F29 ; Personality disorder F60.9 and Factitious disorder imposed on self, recurrent episode F68.10 [facility] [address] [place] [address] 79865- 3984 Sep, [facility] [id number] [address]- 3274 Sep, [facility] [address] 1540 Sep, [facility] [id number] [address] 6340 Sep, [facility] [address] [address]- 3654 Aug, [facility] [id number] [address]- 0361 Aug, Back pain M54.9 [facility] [address] [address]- 0443 Aug, Factitious disorder imposed on self, recurrent episode F68.10 ; Personality disorder F60.9 ; Insomnia, unspecified type G47.00 and Anxiety F41.9 [facility] [id number] [address] 0996 Aug, Back pain M54.9 ; Iron deficiency anemia, unspecified iron deficiency anemia type D50.9 ; Chronic kidney disease, unspecified stage N18.9 and Breast cancer screening Z12.31 [facility] [address] [id number] [id number] Jul, Back pain M54.9 [facility] [id number] [id number] Jul, [facility] [address] [id number] [id number] Jul, [facility] [id number] [address] Jun, Back pain M54.9 [facility] [address] [id number] [id number] Jun, [facility] [id number] [place] [address] [id number] Jun, Back pain M54.9 [facility] [address] [place] [address] 31978- 8667 Jun, Back pain M54.9 ; Seizure disorder G40.909 and Age-related osteoporosis without current pathological fracture M81.0 [facility] [id number] [place] [address] [id number] May, [facility] [id number] [place] [address] 71306- 3178 May, Back pain M54.9 [facility] [id number] [place] [address] 62767- 8443 Apr, Back pain M54.9 ; Encounter for immunization Z23 ; Gastroesophageal reflux disease without esophagitis K21.9 ; Age-related osteoporosis without current pathological fracture M81.0 and Chronic pruritus L29.9 [facility] [address] [place] [address] 35578- 6028 Apr, History of CVA with residual deficit I69.30 [facility] [id number] [place] [address] 59726- 0642 Apr, Factitious disorder imposed on self, recurrent episode F68.10 and Personality disorder F60.9 [facility] [id number] [place] [address] [id number] Apr, Back pain M54.9 [facility] [id number] [place] [address] 74265- 5317 Mar, Factitious disorder imposed on self, recurrent episode F68.10 [facility] [address] [place] [address] 32893- 6664 Mar, [facility] [id number] [place] [address] [id number] Mar, [facility] [id number] [place] [address] [id number] Mar, Back pain M54.9 [place] [address] [address]- 7775 05 Mar, 2017 Back pain M54.9 ; Seizure disorder G40.909 and Age-related osteoporosis without current pathological fracture M81.0 [facility] [address] [address]- 0459 19 Feb, 2017 History of CVA with residual deficit I69.30 [facility] [id number] [place] [address] 80306- 4494 19 Feb, 2017 Factitious disorder imposed on self, recurrent episode F68.10 and Personality disorder F60.9 [facility] [id number] [place] [address] 44982- 2835 15 Feb, 2017 Back pain M54.9 [facility] [address] [place] [address] 21806- 9753 06 Feb, 2017 [facility] [id number] [place] [address] 48065- 7640 Jan, [facility] [address] [place] [id number] Jan, Age- related osteoporosis without current pathological fracture M81.0 and Allergic state, subsequent encounter T78.40XD [facility] [address] [place] [address] 07989- 7467 Jan, Factitious disorder imposed on self, recurrent episode F68.10 and Personality disorder F60.9 [place] [facility] [address] [address]- 4052 Dec, Back pain M54.9 [facility] [address] [place] [address] 14733- 8689 Dec, Personality disorder F60.9 and Factitious disorder imposed on self, recurrent episode F68.10 [facility] [id number] [place] [address] [id number] 13 Dec, 2016 Back pain M54.9 [facility] [id number] [place] [address] [id number] Dec, [facility] [id number] [id number] Dec, [facility] [address] 4778 Dec, [facility] [address] [address]- 3634 Nov, [facility] [address] [place] [address] 82392- 1597 Nov, Back pain M54.9 ; Anemia, unspecified type D64.9 and History of colon polyps Z86.010 [facility] [address] [place] [address] 24039- 2357 Nov, Back pain M54.9 [facility] [id number] [place] [address] [id number] October, Back pain M54.9 [facility] [address] [place] [id number] October, Back pain M54.9 and Gastroesophageal reflux disease without esophagitis K21.9 [facility] [id number] [place] [address] [id number] Sep, [facility] [address] [address]- 3825 Sep, [facility] [address] [address]- 8011 Sep, [facility] [address] [address]- 6527 Sep, [facility] [address] [place] [address] 86948- 1227 Sep, [facility] [address] [address]- 5204 Sep, Seizure disorder G40.909 [facility] [address] [place] [address] 97031- 3773 Sep, Back pain M54.9 [facility] [address] [address]- 2552 Sep, [facility] [address] [place] [address] 45344- 2403 Aug, Back pain M54.9 [facility] [address] [address]- 7372 29 Aug, 2016 Seizure disorder G40.909 [facility] [id number] [place] [address] [id number] Aug, [facility] [id number] [place] [address] [id number] 16 Aug, 2016 Back pain M54.9 [facility] [id number] [place] [address] [id number] 14 Aug, 2016 Back pain M54.9 [facility] [id number] [place] [address] [id number] 06 Aug, 2016 Back pain M54.9 [facility] [address] [place] [address] [id number] Jul, Weakness R53.1 [facility] [address] [place] [address] 48684- 5771 Jul, Seizure disorder G40.909 [facility] [address] [address]- 4301 Jul, [facility] [address] [place] [address] 56688- 7206 Jul, Breast cancer screening Z12.39 [facility] [address] [place] [address] 91656- 4208 Jul, [facility] [address] [address]- 9818 Jul, [facility] [address] [place] [address] 01064- 0821 Jul, [facility] [address] [address]- 4245 Jul, Seizure disorder G40.909 ; Fatigue, unspecified type R53.83 ; Perennial allergic rhinitis, unspecified allergic rhinitis trigger J30.89 and Chronic kidney disease, unspecified stage N18.9 [facility] [address] [place] [address] 39561- 4767 Jul, [facility] [id number] [place] [address] 19674- 5976 Jul, Seizure disorder G40.909 [facility] [id number] [place] [address] 79374- 5759 Jun, [facility] [id number] [place] [address] 45271- 0515 Jun, [facility] and [address] [id number] Jun, Perennial allergic rhinitis, unspecified allergic rhinitis trigger J30.89 [facility] [id number] [place] [address] [id number] Jun, [facility] [id number] [place] [address] 37693- 6805 Jun, Seizure disorder G40.909 [facility] [id number] [place] [address] [id number] Jun, [facility] [id number] [place] [address] [id number] May, [facility] [address] [place] [address] 14453- 3439 May, [facility] [id number] [place] [address] 34977- 9229 May, [facility] [address] [place] [address] 53035- 7514 May, [facility] [id number] [place] [address] 31903- 0820 May, History of CVA with residual deficit I69.30 [facility] [address] [place] [address] 96888- 9386 May, [facility] [id number] [place] [address] 02182- 2330 May, [facility] [id number] [place] [address] 63792- 7817 May, [facility] [id number] [place] [address] 76420- 9901 May, Seizure disorder G40.909 [facility] [id number] [place] [address] 31118- 7455 May, [facility] [address] [place] [address] May, Back pain M54.9 and Seizure disorder G40.909 [facility] [id number] [place] [address] 54529- 3901 Apr, [facility] [id number] [place] [address] 19863- 6092 Apr, Back pain M54.9 [facility] [id number] [place] [address] 35687- 7321 Mar, [facility] [address] [place] [address] Mar, Insomnia, unspecified type G47.00 [facility] [address] [place] [address] 41146- 2266 Mar, [facility] [id number] [place] [address] 53896- 6222 Feb, [facility] [id number] [place] [address] 46921- 3280 Feb, [facility] [address] [place] [address] 57052- 9163 16 Feb, 2016 [facility] [address] [address]- 2417 Jan, [facility] [address] [place] [address] 27666- 4942 Jan, [facility] [address] [place] [address] Jan, Seizure disorder G40.909 and Back pain M54.9 [facility] [id number] [place] [address] 90510- 2639 Dec, [facility] [id number] [place] [address] 99698- 2753 Dec, [facility] [id number] [place] [address] 84952- 9099 Dec, [facility] [id number] [place] [address] 96618- 0055 Nov, [facility] [id number] [place] [address] 25042- 4743 Nov, [facility] [id number] [place] [address] 56742- 3103 Nov, Back pain M54.9 [facility] [address] [place] [address] 28347- 0843 October, [facility] [address] [place] [address] 69171- 5280 October, Back pain M54.9 [facility] [address] [place] [address] 88555- 3200 October, Seizure disorder G40.909 and B12 deficiency E53.8 [facility] [id number] [place] [address] 16936- 2535 Sep, History of CVA with residual deficit I69.30 [facility] [address] [address]- 7067 Sep, [facility] [address] [address]- 7076 18 Sep, 2015 [facility] [address] [place] [address] 06181- 9707 Sep, Back pain M54.9 [facility] [id number] [place] [address] 51705- 6337 Sep, Seizure disorder G40.909 [facility] [id number] [place] [address] 99530- 4565 Aug, Back pain M54.9 [facility] [id number] [place] [address] 23585- 2814 18 Aug, 2015 Seizure disorder G40.909 [facility] [id number] [place] [address] 53116- 3629 16 Aug, 2015 Back pain M54.9 [facility] [id number] [place] [address] 44850- 4172 14 Aug, 2015 Heart failure, unspecified I50.9 [facility] [address] [place] [address] 28527- 7984 14 Aug, 2015 Medication monitoring encounter Z51.81 [facility] [id number] [place] [address] 76456- 4252 15 Jul, 2015 [facility] [id number] [place] [address] 28343- 1278 09 Jul, 2015 Seizure disorder G40.909 [facility] [address] [address]- 2418 05 Jul, 2015 Back pain M54.9 [facility] [id number] [place] [address] 89832- 4505 Jun, [facility] [id number] [place] [address] 85279- 2009 Jun, [facility] [id number] [place] [address] 21698- 6242 Jun, Mental status change R41.82 ; History of CVA with residual deficit I69.30 ; Back pain M54.9 and Seizure disorder G40.909 [facility] [address] [address]- 3856 Jun, [facility] [address] [address]- 4906 May, [facility] [id number] [place] [address] 68269- 5526 Apr, [facility] [address] [place] [address] 64381- 6414 Apr, Medication monitoring encounter Z51.81 [facility] [address] [address]- 1798 Mar, Vomiting R11.10 [facility] [address] [place] [address] 84608- 7076 Mar, [facility] [address] [address]- 3056 Feb, [facility] [address] 9566 Feb, UTI (urinary tract infection) 599.0 [facility] [address] [address]- 3006 Jan, [facility] [address] [address]- 5566 Jan, [facility] [address] [address] 2546 Jan, [facility] [address] [address]- 9246 Dec, [facility] [id number] [address] Dec, [facility] [id number] [address] Dec, [facility] [place] [facility] [address] [id number] [place] [address] Dec, [facility] [place] [facility] [address] [id number] [place] [address] Nov, UNKNOWN Nov, [facility] [place] [facility] [address] [id number] [place] [address] October, [facility] [place] [facility] [address] [id number] [place] [address] Sep, [facility] [place] [facility] [address] [id number] [place] [address] Sep, [facility] [place] [facility] [address] [id number] [place] [address] Aug, [facility] [place] [facility] [address] [id number] [place] [address] Aug, [facility] [place] [facility] [address] [id number] [place] [address] Jul, [facility] [place] [facility] [address] [id number] [place] [address] Jul, [facility] [place] [facility] [address] [id number] [place] [address] Jul, [facility] [place] [facility] [address] [id number] [place] [address] Jul, [facility] [place] [facility] [address] [address] [id number] [place] [address] Jul, [facility] [place] [facility] [address] [id number] [place] [address]259 Jun, [facility] [place] [facility] [address] [id number] [place] [address] 77[address] Jun, [facility] [place] [facility] [address] [id number] [place] [address] 8496 Jun, [facility] [place] [facility] [address] [id number] [place] [address] 2378 Jun, [facility] [place] [facility] [address] [id number] [place] [address] 3242 Jun, [facility] [place] [facility] [address] [id number] [place] [address] 5617 Jun, [facility] [place] [facility] [address] [id number] [place] [address] 7346 Jun, [facility] [place] [facility] [address] [id number] [place] [address] 3835 Jun, [facility] [place] [facility] [address] [id number] [place] [address]- 7629 Jun, [facility] [place] [facility] [address] [id number] [place] [address] 1920 Jun, [facility] [place] [facility] [address] [id number] [place] [address]- 6973 Jun, [facility] [place] [facility] [address] [id number] [place] [address]- 4501 Jun, [facility] [place] [facility] [address] [id number] [place] [address] 1951 Jun, [facility] [place] [facility] [address] [id number] [place] [address]- 1715 Jun, [facility] [place] [facility] [address] [id number] [place] [address]- 1486 Jun, [facility] [place] [facility] [address] [id number] [place] [address]- 3264 Jun, [facility] [place] [facility] [address] [id number] [place] [address]- 8995 Jun, [facility] [place] [facility] [address] [id number] [place] [address]- 1530 Jun, [facility] [place] [facility] [address] [id number] [place] [address]- 7631 May, [facility] [address] [id number] [place] [address]- 4791 May, [facility] [place] [facility] [address] [id number] [place] [address] May, [facility] [address] [id number] [place] [address]- 8230 May, [facility] [place] [facility] [address] [id number] [place] [address]- 5214 May, [facility] [place] [facility] [address] [id number] [place] [address]- 1243 May, [facility] [place] [facility] [address] [id number] [place] [address]- 2049 May, [facility] [address] [id number] [place] [address]- 3320 May, [facility] [place] [facility] [address] [id number] [place] [address]- 9535 May, [facility] [address] [id number] May, [facility] [address] [id number] [place] [address] 38[address] May, [facility] [place] [facility] [address] [id number] [place] [address] 3649 May, [facility] [place] [facility] [address] [id number] [place] [address]- 6485 May, [facility] [place] [facility] [address] [id number] [place] [address]- 6226 Apr, [facility] [place] [facility] [address] [id number] [place] [address]- 1786 Apr, [facility] [place] [facility] [address] [id number] [place] [address] 3959 Apr, [facility] [place] [facility] [address] [id number] [place] [address]- 7941 Apr, [facility] [place] [facility] [address] [id number] [place] [address]- 3920 Apr, [facility] [place] [facility] [address] [id number] [place] [address]- 3877 Apr, [facility] [place] [facility] [address] [id number] [place] [address]- 0645 Mar, [facility] [place] [facility] [address] [id number] [place] [address]- 4571 Mar, [facility] [place] [facility] [address] [id number] [place] [address]- 3223 Mar, [facility] [place] [facility] [address] [id number] [place] [address]- 4795 Mar, [facility] [place] [facility] [address] [facility] [id number] [place] [address]- 1891 Mar, [facility] [place] [facility] [address] [id number] [place] [address]- 6256 Mar, [facility] [place] [facility] [address] [id number] [place] [address]- 9537 24 Feb, 2014 [facility] [place] [facility] [address] [id number] [place] [address]- 1346 24 Feb, 2014 [facility] [place] [facility] [address] [id number] [place] [address]- 4540 23 Feb, 2014 [facility] [place] [facility] [address] [id number] [place] [address]- 4430 23 Feb, 2013 [facility] [place] [facility] [address] [id number] [place] [address]- 2868 19 Feb, 2014 [facility] [place] [facility] [address] [id number] [place] [address]- 5066 19 Feb, 2014 [facility] [place] [facility] [address] [facility] [id number] [place] [address]- 8577 19 Feb, 2013 [facility] [place] [facility] [address] [id number] [place] [address]- 9549 Feb, [facility] [place] [facility] [address] [id number] [place] [address]- 0794 Feb, [facility] [place] [facility] [address] [id number] [place] [address]- 2616 Feb, [facility] [address] [facility] [place] [id number] Feb, [facility] [place] [facility] [address] [id number] [place] [address]- 1865 Feb, [facility] [place] [facility] [address] [id number] [place] [address]- 2378 Jan, [facility] [place] [facility] [address] [id number] [place] [address]- 3096 Jan, [facility] [place] [facility] [address] [id number] [place] [address]- 8451 Dec, [facility] [place] [facility] [address] [id number] [place] [address]- 8023 Dec, [facility] [place] [facility] [address] [id number] [place] [address]- 3972 Dec, [facility] [place] [facility] [address] [id number] [place] [address]- 2308 Dec, [facility] [place] [facility] [address] [id number] [place] [address]- 3107 Dec, [facility] [place] [facility] [address] [id number] [place] [address]- 9233 Dec, [facility] [place] [facility] [address] [id number] [place] [address]- 2033 Dec, [facility] [place] [facility] [address] [id number] [place] [address]- 1944 Dec, [facility] [place] [facility] [address] [id number] [place] [address]- 8059 Dec, [facility] [place] [facility] [address] [id number] [place] [address]- 7330 Dec, [facility] [place] [facility] [address] [id number] [place] [address]- 0022 Nov, [facility] [place] [facility] [address] [id number] [place] [address]- 1942 Nov, [facility] [place] [facility] [address] [id number] [place] [address]- 5332 Nov, [facility] [place] [facility] [address] [id number] [place] [address]- 3910 Nov, [facility] [place] [facility] [address] [id number] [place] [address]- 5098 Nov, [facility] [place] [facility] [address] [id number] [place] [address]- 2346 Nov, [facility] [place] [facility] [address] [id number] [place] [address]- 4864 Nov, [facility] [place] [facility] [address] [id number] [place] [address]- 4463 Nov, [facility] [place] [facility] [address] [id number] [place] [address]- 8269 Nov, [facility] [place] [facility] [address] [id number] [place] [address]- 6225 Nov, [facility] [place] [facility] [address] [id number] [place] [address]- 8437 Nov, [facility] [place] [facility] [address] [id number] [place] [address]- 3718 Nov, [facility] [place] [facility] [address] [id number] [place] [address]- 4408 Nov, [facility] [place] [facility] [address] [id number] [place] [address]- 5133 Nov, [facility] [place] [facility] [address] [id number] [place] [address]- 2721 October, [facility] [place] [facility] [address] [id number] [place] [address]- 3568 October, [facility] [place] [facility] [address] [id number] [place] [address]- 3477 October, [facility] [place] [facility] [address] [id number] [place] [address]- 8921 October, [facility] [place] [facility] [address] [id number] [place] [address]- 7475 October, [facility] [place] [facility] [address] [id number] [place] [address]- 0613 October, [facility] [place] [facility] [address] [id number] [place] [address]- 2277 October, [facility] [place] [facility] [address] [id number] [place] [address]- 9215 October, [facility] [place] [facility] [address] [id number] [place] [address]- 0697 October, [facility] [place] [facility] [address] [id number] [place] [address]- 1394 October, [facility] [place] [facility] [address] [id number] [place] [address]- 4149 Sep, [facility] [place] [facility] [address] [id number] [place] [address]- 6713 Sep, [facility] [place] [facility] [address] [id number] [place] [address]- 4033 Sep, [facility] [place] [facility] [address] [id number] [place] [address]- 3311 Sep, [facility] [place] [facility] [address] [id number] [place] [address]- 1672 Sep, [facility] [place] [facility] [address] [id number] [place] [address]- 4437 Sep, [facility] [place] [facility] [address] [id number] [place] [address]- 7886 Sep, [facility] [place] [facility] [address] [id number] [place] [address]- 3019 Sep, [facility] [place] [facility] [address] [id number] [place] [address]- 5256 Sep, [facility] [place] [facility] [address] [id number] [place] [address]- 5512 Sep, [facility] [place] [facility] [address] [id number] [place] [address]- 5290 Aug, [facility] [place] [facility] [address] [id number] [place] [address]- 7532 Aug, [facility] [place] [facility] [address] [id number] [place] [address]- 8047 Aug, [facility] [place] [facility] [address] [id number] [place] [address]- 4057 Aug, [facility] [place] [facility] [address] [id number] [place] [address]- 2749 Aug, [facility] [place] [facility] [address] [id number] [place] [address]- 2179 Aug, [facility] [place] [facility] [address] [id number] [place] [address]- 1229 Aug, [facility] [place] [facility] [address] [id number] [place] [address]- 2176 Aug, [facility] [place] [facility] [address] [id number] [place] [address]- 8226 Aug, [facility] [place] [facility] [address] [id number] [place] [address]- 8013 Jul, [facility] [place] [facility] [address] [id number] [place] [address]- 1836 Jul, [facility] [place] [facility] [address] [id number] [place] [address]- 8518 Jul, [facility] [place] [facility] [address] [id number] [place] [address]- 7776 Jul, [facility] [place] [facility] [address] [id number] [place] [address]- 9696 Jul, [facility] [place] [facility] [address] [facility] [id number] [place] [address]- 4476 Jul, [facility] [place] [facility] [address] [id number] [place] [address]- 6726 Jul, [facility] [place] [facility] [address] [id number] [place] [address]- 7286 Jul, [facility] [place] [facility] [address] [id number] [place] [address]- 6081 Jul, [facility] [place] [facility] [address] [facility] [id number] [place] [address]- 7392 Jul, [facility] [place] [facility] [address] [facility] [id number] [place] [address]- 1305 Jul, [facility] [place] [facility] [address] [facility] [id number] [place] [address]- 5874 Jul, [facility] [place] [facility] [address] [facility] [id number] [place] [address]- 2057 Jul, [facility] [place] [facility] [address] [facility] [id number] [place] [address]- 7250 Jul, [facility] [place] [facility] [address] [facility] [id number] [place] [address]- 8632 Jul, [facility] [place] [facility] [address] [id number] [place] [address]- 4513 Jul, [facility] [place] [facility] [address] [facility] [id number] [place] [address]- 2011 Jun, [facility] [place] [facility] [address] [facility] [id number] [place] [address]- 1997 Jun, [facility] [place] [facility] [address] [id number] [place] [address]- 2051 Jun, [facility] [address] [id number] [place] [address]- 9261 Jun, [facility] [address] [id number] [place] [address]- 2346 Jun, [facility] [address] [id number] [place] [address]- 6086 Jun, [facility] [address] [id number] [place] [address]- 7842 May, [facility] [address] [id number] [place] [address]- 1232 May, [facility] [address] [id number] [place] [address]- 6941 May, [facility] [address] [id number] [place] [address]- 9672 May, [facility] [address] [id number] [place] [address]- 7597 Apr, [facility] [address] [id number] [place] [address]- 3039 Apr, [facility] [address] [id number] [place] [address]- 4642 Apr, [facility] [address] [id number] [place] [address]- 7668 Apr, [facility] [place] [facility] [address] [id number] [place] [address]- 3759 Apr, [facility] [place] [facility] [address] [id number] [place] [address]- 2808 Apr, [facility] [place] [facility] [address] [id number] [place] [address]- 7820 Apr, [facility] [place] [facility] [address] [id number] [place] [address]- 5383 Apr, [facility] [place] [facility] [address] [id number] [place] [address]- 5499 18 Apr, 2013 [facility] [place] [facility] [address] [id number] [place] [address]- 4462 18 Apr, 2013 [facility] [place] [facility] [address] [id number] [place] [address]- 9196 Apr, [facility] [place] [facility] [address] [id number] [place] [address]- 0001 Apr, [facility] [place] [facility] [address] [id number] [place] [address]- 7254 28 Mar, 2013 [facility] [place] [facility] [address] [id number] [place] [address]- 1447 28 Mar, 2013 [facility] [place] [facility] [address] [id number] [place] [address]- 4255 16 Mar, 2013 [facility] [place] [facility] [address] [id number] [place] [address]- 5921 16 Mar, 2013 [facility] [place] [facility] [address] [id number] [place] [address]- 0064 15 Mar, 2013 [facility] [place] [facility] [address] [id number] [place] [address]- 9194 15 Mar, 2013 [facility] [place] [facility] [address] [id number] [place] [address]- 7658 27 Sep, 2012 [facility] [place] [facility] [address] [id number] [place] [address]- 7597 25 Sep, 2012 [facility] [place] [facility] [address] [id number] [place] [address] 254 25 Sep, 2012 [facility] [place] [facility] [address] [id number] [place] [address]- 1132 23 Sep, 2012 [facility] [place] [facility] [address] [id number] [place] [address]- 4357 17 Sep, 2012 [facility] [place] [facility] [address] [id number] [place] [address]- 2565 10 Feb, 2013 [facility] [address] [id number] [place] [address]- 1414 Feb, [facility] [place] [facility] [address] [id number] [place] [address]- 6722 Jan, [facility] [address] [id number] [place] [address]- 8717 Jan, [facility] [address] [id number] [place] [address]- 3042 Jan, [facility] [address] [id number] [place] [address]- 5301 Jan, [facility] [address] [id number] [place] [address]- 0021 Jan, [facility] [address] [id number] [place] [address]- 9683 Jan, [facility] [address] [id number] [place] [address]- 7176 Jan, [facility] [place] [facility] [address] [id number] [place] [address]- 2751 Dec, [facility] [address] [id number] [place] [address]- 9349 Dec, [facility] [place] [facility] [address] [id number] [place] [address]- 4046 Dec, [facility] [place] [facility] [address] [id number] [place] [address]- 1156 Dec, [facility] [place] [facility] [address] [id number] [place] [address]- 3954 Dec, [facility] [place] [facility] [address] [id number] [place] [address]- 2546 Dec, [facility] [place] [facility] [address] [id number] [place] [address]- 6022 Nov, [facility] [address] [id number] [place] [address]- 3550 Nov, [facility] [place] [facility] [address] [id number] [place] [address]- 9698 Nov, [facility] [address] [id number] [place] [address]- 2697 Nov, [facility] [place] [facility] [address] [id number] [place] [address]- 6616 October, [facility] [address] [id number] [place] [address]- 7869 October, [facility] [place] [facility] [address] [id number] [place] [address]- 2875 October, [facility] [address] [id number] [place] [address]- 3923 October, [facility] [address] [id number] [place] [address]- 6102 Sep, [facility] [place] [facility] [address] [id number] [place] [address]- 6967 Sep, [facility] [place] [facility] [address] [id number] [place] [address]- 9588 Sep, [facility] [place] [facility] [address] [id number] [place] [address]- 5572 Sep, [facility] [place] [facility] [address] [id number] [place] [address]- 7119 Sep, [facility] [place] [facility] [address] [id number] [place] [address]- 6230 Sep, [facility] [place] [facility] [address] [id number] [place] [address]- 4797 Sep, [facility] [place] [facility] [address] [id number] [place] 8747 Sep, [facility] [place] [facility] [address] [id number] [place] [address] 13 Aug, 2012 [facility] [address] [id number] [place] [address] 13 Aug, 2012 [facility] [address] [id number] [place] [address] 05 Aug, 2012 [facility] [address] [id number] [place] [address] 18 Jul, 2012 [facility] [address] [id number] [place] [address] 08 Jul, 2012 [facility] [address] [id number] [place] [address] 07 Jul, 2012 [facility] [address] [id number] [place] [address] 06 Jul, 2012 [facility] [address] [id number] [place] [address]69 05 Jul, 2012 [facility] [address] [id number] [place] [address] Jun, [facility] [address] [id number] [place] [address] Jun, [facility] [address] [id number] [place] [address] 08 Jun, 2012 [facility] [address] [id number] [place] [address] May, [facility] [address] [id number] [place] [address] May, [facility] [address] [id number] [place] [address] May, [facility] [address] [id number] [place] [address] May, [facility] [address] [id number] [place] [address] May, [facility] [place] [facility] [address] [id number] [place] [address]164 May, [facility] [place] [facility] [address] [id number] [place] [address]- [address]13 May, [facility] [place] [facility] [address] [id number] [place] [address] Apr, [facility] [place] [facility] [address] [id number] [place] [address]- 295[address] Apr, [facility] [place] [facility] [address] [id number] [place] [address]- 8[address] Apr, [facility] [place] [facility] [address] [id number] [place] [address]- [address] Apr, [facility] [place] [facility] [address] [id number] [place] [address]- [address] Apr, [facility] [place] [facility] [address] [id number] [place] [address]- 6065 Apr, [facility] [place] [facility] [address] [id number] [place] [address]- 8445 Apr, [facility] [place] [facility] [address] [id number] [place] [address]- 8320 Apr, [facility] [place] [facility] [address] [id number] [place] [address] Apr, [facility] [place] [facility] [address] [id number] [place] [address] Apr, [facility] [place] [facility] [address] [id number] [place] [address] Apr, [facility] [place] [facility] [address] [id number] [place] [address] Mar, [facility] [place] [facility] [address] [id number] [place] [address] Mar, [facility] [place] [facility] [address] [id number] [place] [address] Mar, [facility] [place] [facility] [address] [id number] [place] [address] 8561 Mar, [facility] [place] [facility] [address] [id number] [place] [address]- 5896 Mar, [facility] [place] [facility] [address] [id number] [place] [address] 9156 Mar, [facility] [place] [facility] [address] [id number] [place] [address]- [address]261 Mar, [facility] [place] [facility] [address] [id number] [place] [address]- 1343 19 Mar, 2012 [facility] [place] [facility] [address] [id number] [place] [address] 16 Mar, 2012 [facility] [place] [facility] [address] [id number] [place] [address]- 2033 16 Mar, 2012 [facility] [place] [facility] [address] [id number] [place] [address]- 2560 04 Mar, 2012 [facility] [place] [facility] [address] [id number] [place] [address] 45[address] 28 Sep, 2011 [facility] [place] [facility] [address] [id number] [place] [address]- [address]753 27 Sep, 2011 [facility] [place] [facility] [address] [id number] [place] [address] 254 27 Sep, 2011 [facility] [place] [facility] [address] [id number] [place] [address]- [address] 26 Sep, 2011 [facility] [place] [facility] [address] [id number] [place] [address]- 3148 24 Sep, 2011 [facility] [place] [facility] [address] [id number] [place] [address]- 7990 19 Sep, 2011 [facility] [place] [facility] [address] [id number] [place] [address]- 6699 18 Sep, 2011 [facility] [place] [facility] [address] [id number] [place] [address] 40[address] Feb, [facility] [place] [facility] [address] [id number] [place] [address] 6106 Feb, [facility] [place] [facility] [address] [id number] [place] [address]- 6286 Jan, [facility] [place] [facility] [address] [id number] [place] [address]- 3746 Jan, [facility] [place] [facility] [address] [id number] [place] [address] 1876 Jan, [facility] [place] [facility] [address] [id number] [place] [address]- 3077 Jan, [facility] [place] [facility] [address] [id number] [place] [address] 0658 Dec, [facility] [place] [facility] [address] [id number] [place] [address]- 6070 Dec, [facility] [place] [facility] [address] [id number] [place] [address] Dec, [facility] [place] [facility] [address] [id number] [place] [address]- 0[address] Dec, [facility] [place] [facility] [address] [id number] [place] [address]- 8449 Dec, [facility] [place] [facility] [address] [id number] [place] [address]- 6026 Dec, [facility] [place] [facility] [address] [id number] [place] [address]- 0564 Dec, [facility] [place] [facility] [address] [id number] [place] [address]- 3726 Dec, [facility] [place] [facility] [address] [id number] [place] [address]- 8036 Dec, [facility] [place] [facility] [address] [id number] [place] [address]- 9021 Dec, [facility] [place] [facility] [address] [id number] [place] [address]- 0270 Dec, [facility] [place] [facility] [address] [id number] [place] [address]- 2577 Dec, [facility] [place] [facility] [address] [id number] [place] [address]- 3677 Dec, [facility] [place] [facility] [address] [id number] [place] [address]- 6531 Dec, [facility] [place] [facility] [address] [id number] [place] [address]- 4359 Nov, [facility] [place] [facility] [address] [id number] [place] [address]- 2621 Nov, [facility] [place] [facility] [address] [id number] [place] [address]- 0514 Nov, [facility] [place] [facility] [address] [id number] [place] [address]- 4994 Nov, [facility] [place] [facility] [address] [id number] [place] [address]- 4731 Nov, [facility] [place] [facility] [address] [id number] [place] [address] Nov, [facility] [place] [facility] [address] [id number] [place] [address] October, [facility] [place] [facility] [address] [id number] [place] [address] October, [facility] [place] [facility] [address] [id number] [place] [address] October, [facility] [place] [facility] [address] [id number] [place] [address] October, [facility] [place] [facility] [address] [id number] [place] [address] Sep, [facility] [place] [facility] [address] [id number] [place] [address] 17 Sep, 2011 [facility] [address] [id number] [place] [address] 13 Sep, 2011 [facility] [place] [facility] [address] [id number] [place] [address] 09 Sep, 2011 [facility] [place] [facility] [address] [id number] [place] [address] Sep, [facility] [place] [facility] [address] [id number] [place] [address] 26 Aug, 2011 [facility] [place] [facility] [address] [id number] [place] [address] 26 Aug, 2011 [facility] [place] [facility] [address] [id number] [place] [address] Aug, [facility] [place] [facility] [address] [id number] [place] [address] Aug, [facility] [place] [facility] [address] [id number] [place] [address] Aug, [facility] [place] [facility] [address] [id number] [place] [address] Aug, [facility] [place] [facility] [address] [facility] [id number] [place] [address] Aug, [facility] [place] [facility] [address] [id number] [place] [address] 16 Jul, 2011 [facility] [place] [facility] [address] [id number] [place] [address] 16 Jul, 2011 [facility] [place] [facility] [address] [id number] [place] [address] 15 Jul, 2011 [facility] [place] [facility] [address] [id number] [place] [address] 15 Jul, 2011 [facility] [place] [facility] [address] [id number] [place] [address] Jun, [facility] [address] [id number] Jun, [facility] [address] [id number] [place] [address] Jun, [facility] [address] [id number] [place] [address] Jun, [facility] [address] [id number] [place] [address] Jun, [facility] [address] [id number] [place] [address] Jun, [facility] [address] [id number] [place] [address] Jun, [facility] [address] [facility] [id number] [place] [address] Jun, [facility] [address] [id number] [place] [address] May, [facility] [address] [id number] [place] [address] May, [facility] [address] [id number] [place] [address] May, [facility] [address] [facility] [id number] [place] [address] May, [facility] [address] [id number] [place] [address] May, [facility] [address] [id number] [place] [address] May, [facility] [address] [id number] [place] [address] May, [facility] [address] [id number] [place] [address] Apr, [facility] [address] [id number] [place] [address] Apr, [facility] [place] [facility] [address] [id number] [place] [address] 03 Apr, 2011 [facility] [place] [facility] [address] [id number] [place] [address] 27 Mar, 2011 [facility] [place] [facility] [address] [id number] [place] [address]6 20 Mar, 2011 [facility] [place] [facility] [address] [id number] [place] [address] 14 Mar, 2011 [facility] [place] [facility] [address] [id number] [place] [address] 11 Mar, 2011 [facility] [place] [facility] [address] [id number] [place] [address] 10 Mar, 2011 [facility] [place] [facility] [address] [id number] [place] [address]- 9659 10 Mar, 2011 [facility] [place] [facility] [address] [id number] [place] [address] 10 Mar, 2011 [facility] [place] [facility] [address] [id number] [place] [address] Jan, [facility] [place] [facility] [address] [id number] [place] [address] 27 May, 2010 [facility] [place] [facility] [address] [id number] [place] [address] 21 May, 2010 [facility] [place] [facility] [address] [id number] [address] 13 May, 2010 [facility] [place] [facility] [address] [id number] [place] [address]- 238[address] 13 May, 2010 [facility] [place] [facility] [address] [id number] [place] [address] 10 May, 2010 [facility] [place] [facility] [address] [id number] [place] [address] 06 May, 2010 [facility] [place] [facility] [address] [id number] [place] [address]- [address] 29 Apr, 2010 [facility] [place] [facility] [address] [id number] [place] [address] Apr, [facility] [place] [facility] [address] [id number] [place] [address] Apr, [facility] [place] [facility] [address] [id number] [place] [address] Apr, [facility] [place] [facility] [address] [id number] [place] [address] 15 Apr, 2010 [facility] [place] [facility] [address] [id number] [place] [address]- 24[address] Apr, [facility] [place] [facility] [address] [id number] [place] [address]- [address] Apr, [facility] [place] [facility] [address] [facility] [id number] [place] [address] Apr, [facility] [place] [facility] [address] [id number] [place] [address]- [address] Apr, [facility] [place] [facility] [address] [id number] [place] [address] Apr, [facility] [place] [facility] [address] [facility] [id number] [place] [address]- [address] Mar, [facility] [place] [facility] [address] [id number] [place] [address]- 97[address] Mar, [facility] [place] [facility] [address] [id number] [place] [address] Mar, [facility] [place] [facility] [address] [id number] [place] [address]- 4[address] Mar, [facility] [place] [facility] [address] [facility] [id number] [place] [address]- 250[address] Mar, [facility] [place] [facility] [address] [facility] [id number] [address] Dec, [facility] [place] [facility] [address] [facility] [id number] [place] [address] 10 Nov, 2009 IMMUNIZATIONS No Known Immunizations SOCIAL HISTORY Never Assessed REASON FOR VISIT f/u PLAN OF CARE Activity Details Follow Up Next available, 2 Weeks Reason: VITAL SIGNS MEDICATIONS Unknown Medications RESULTS No Results PROCEDURES Procedure Date Ordered Result Body Site Psychotherapy, patient &/family, 45 minutes, established patient November 19, 2017 INSTRUCTIONS MEDICATIONS ADMINISTERED No Known Medications [...] and skin graft, cholecysectomy Hospitalization History [facility] 12/2016 [facility]ization History [facility] 08/2017
--- OUTSIDE RECORDS SUMMARY | 2018-07-05 15:13 | XMS REPORT ---
Author Author NAHOMY BETH Organization [facility] Address [address] [place] [address] Care Team Providers Care It Applications Analyst Name Role Phone NAHOMY BETH Unavailable PROBLEMS Type Condition ICD9-CM Code [id number] Code Onset Dates Condition Status SNOMED Code Problem Anemia, unspecified type D64.9 Active 846824609 Problem Personality disorder F60.9 Active 34168955 Problem Factitious disorder imposed on self, recurrent episode F68.10 Active 53754846 Problem Ventral hernia without obstruction or gangrene K43.9 Active 855706104 Problem Allergic state, subsequent encounter T78.40XD Active 267725112 Problem Anxiety F41.9 Active 83927465 Problem Age-related osteoporosis without current pathological fracture M81.0 Active 28396271 Problem Unspecified psychosis not due to a substance or known physiological condition F29 Active 13994981 Problem Iron deficiency anemia, unspecified iron deficiency anemia type D50.9 Active 43451115 Problem History of CVA with residual deficit I69.30 Active 345259637 Problem Seizure disorder G40.909 Active 866086335 Problem Perennial allergic rhinitis, unspecified allergic rhinitis trigger J30.89 Active 470982189 Problem Chronic kidney disease, unspecified stage N18.9 Active 100845097 Problem Back pain M54.9 Active 311282227 Problem Gastroesophageal reflux disease without esophagitis K21.9 Active 222474734 Problem Insomnia, unspecified type G47.00 Active 371910133 Problem History of colon polyps Z86.010 Active 665484334 ALLERGIES No Information ENCOUNTERS Encounter Location Date Diagnosis [facility] [id number], [place] [address] Feb, [facility] [address] [facility] [id number] [address] Jan, [facility] [address], [place] [address] Jan, [facility] [address], [place] [address] 9230 Jan, Back pain M54.9 [facility] [address], [place] [address] 3[address] Jan, [facility] [id number] [place] [address] 91134- 3249 Jan, Unspecified psychosis not due to a substance or known physiological condition F29 ; Personality disorder F60.9 and Factitious disorder imposed on self, recurrent episode F68.10 [facility] [id number] [place] [address] 19838- 1343 Dec, Back pain M54.9 ; Seizure disorder G40.909 ; Ventral hernia without obstruction or gangrene K43.9 and History of CVA with residual deficit I69.30 [facility] [address], [place] [address] 6970 Dec, Unspecified psychosis not due to a substance or known physiological condition F29 ; Personality disorder F60.9 and Factitious disorder imposed on self, recurrent episode F68.10 [facility] [address], [place] [address] Dec, [facility] [address], [place] [address] 6877 Dec, Back pain M54.9 [facility] [address], [place] [address] 34[address] Dec, Factitious disorder imposed on self, recurrent episode F68.10 ; Personality disorder F60.9 ; Insomnia, unspecified type G47.00 and Anxiety F41.9 [facility] [address], [place] [address] 3[address] Nov, Unspecified psychosis not due to a substance or known physiological condition F29 ; Personality disorder F60.9 and Factitious disorder imposed on self, recurrent episode F68.10 [facility] [address], [place] [address]- 0592 Nov, Back pain M54.9 [facility] [id number] [place] [address] 74098- 6727 Nov, Unspecified psychosis not due to a substance or known physiological condition F29 ; Personality disorder F60.9 and Factitious disorder imposed on self, recurrent episode F68.10 [facility] [id number] [place] [address] 37099- 9464 October, [facility] [id number] [place] [address] 65721- 2004 October, [facility] [id number] [place] [address] 42314- 8295 October, Unspecified psychosis not due to a substance or known physiological condition F29 ; Personality disorder F60.9 and Factitious disorder imposed on self, recurrent episode F68.10 [facility] [address] [place] [address] 86369- 3351 October, Back pain M54.9 [facility] [id number] [place] [address] 41318- 7152 October, Seizure disorder G40.909 ; Back pain M54.9 and Allergic state, subsequent encounter T78.40XD [facility] [address], [place] [address]- 9583 October, [facility] [id number] [place] [address] 10069- 2895 Sep, Back pain M54.9 [facility] [id number] [place] [address] 81827- 0185 Sep, Unspecified psychosis not due to a substance or known physiological condition F29 ; Personality disorder F60.9 and Factitious disorder imposed on self, recurrent episode F68.10 [facility] [id number] [place] [address] 45929- 9833 Sep, [facility] [id number], [place] [address] 1130 Sep, [facility] [address], [place] [address]- 2559 Sep, [facility] [address], [place] [address]- 2870 Sep, [facility] [id number] [place] [address] 90023- 5884 Aug, [facility] [address], [place] [address]- 5924 Aug, Back pain M54.9 [facility] [address], [place] [address]- 2842 Aug, Factitious disorder imposed on self, recurrent episode F68.10 ; Personality disorder F60.9 ; Insomnia, unspecified type G47.00 and Anxiety F41.9 [facility] [address], [place] [address] 8408 Aug, Back pain M54.9 ; Iron deficiency anemia, unspecified iron deficiency anemia type D50.9 ; Chronic kidney disease, unspecified stage N18.9 and Breast cancer screening Z12.31 [facility] [id number] [id number] Jul, Back pain M54.9 [facility] [id number] [id number] Jul, [facility] [id number] [id number] Jul, [facility] [id number] [address] Jun, Back pain M54.9 [facility] [id number] [address] Jun, [facility] [id number] [place] [address] [id number] Jun, Back pain M54.9 [facility] [address] [place] [address] 17772- 2751 Jun, Back pain M54.9 ; Seizure disorder G40.909 and Age-related osteoporosis without current pathological fracture M81.0 [facility] [id number] [place] [address] [id number] May, [facility] [id number] [place] [address] 85415- 7700 May, Back pain M54.9 [facility] [id number] [place] [address] 57925- 3440 Apr, Back pain M54.9 ; Encounter for immunization Z23 ; Gastroesophageal reflux disease without esophagitis K21.9 ; Age-related osteoporosis without current pathological fracture M81.0 and Chronic pruritus L29.9 [facility] [id number] [place] [address] 48938- 6333 Apr, History of CVA with residual deficit I69.30 [facility] [id number] [place] [address] 27747- 0240 Apr, Factitious disorder imposed on self, recurrent episode F68.10 and Personality disorder F60.9 [facility] [id number] [place] [address] [id number] Apr, Back pain M54.9 [facility] [address] [place] [address] 62591- 5592 Mar, Factitious disorder imposed on self, recurrent episode F68.10 [facility] [id number] [place] [address] 77640- 5028 Mar, [facility] [id number] [place] [address] [id number] Mar, [facility] [id number] [place] [address] [id number] Mar, Back pain M54.9 [facility] [address], [place] [address]- 8564 05 Mar, 2017 Back pain M54.9 ; Seizure disorder G40.909 and Age-related osteoporosis without current pathological fracture M81.0 [facility] [address], [place] [address]- 2431 19 Feb, 2017 History of CVA with residual deficit I69.30 [facility] [id number] [place] [address] 39732- 7040 Feb, Factitious disorder imposed on self, recurrent episode F68.10 and Personality disorder F60.9 [facility] [id number] [place] [address] 99348- 4376 15 Feb, 2017 Back pain M54.9 [facility] [id number] [place] [address] 90217- 1893 Feb, [facility] [id number] [place] [address] 51756- 3030 Jan, [facility] [address] [place] [id number] Jan, Age- related osteoporosis without current pathological fracture M81.0 and Allergic state, subsequent encounter T78.40XD [facility] [id number] [place] [address] 19678- 7519 Jan, Factitious disorder imposed on self, recurrent episode F68.10 and Personality disorder F60.9 [facility] [address], [place] [address]- 6848 Dec, Back pain M54.9 [facility] [address], [place] [address]- 1540 Dec, Personality disorder F60.9 and Factitious disorder imposed on self, recurrent episode F68.10 [facility] [id number] [address] Dec, Back pain M54.9 [facility] [id number] [place] [address] [id number] Dec, [facility] [id number] [address] Dec, [facility] [address], [place] [address]- 8616 Dec, [facility] [address], [place] [address]- 2413 Nov, [facility] [address], [place] [address]- 9624 Nov, Back pain M54.9 ; Anemia, unspecified type D64.9 and History of colon polyps Z86.010 [facility] [address], [place] [address]- 5811 Nov, Back pain M54.9 [facility] [id number] [id number] October, Back pain M54.9 [facility] [address] [place] [id number] October, Back pain M54.9 and Gastroesophageal reflux disease without esophagitis K21.9 [facility] [id number] [place] [address] [id number] Sep, [facility] [address] [address] 7725 Sep, [facility] [address], [place] [address]- 8485 Sep, [facility] [address] [address] 1777 Sep, [facility] [address], [place] [address]- 3669 Sep, [facility] [address] [address] 3674 Sep, Seizure disorder G40.909 [facility] [address] [address] 8484 Sep, Back pain M54.9 [facility] [address], [place] [address]- 4084 Sep, [facility] [address], [place] [address] 2546 Aug, Back pain M54.9 [facility] [id number], [place] [address]- 1176 Aug, Seizure disorder G40.909 [facility] [id number] [id number] Aug, [facility] [id number] [place] [address] [id number] 16 Aug, 2016 Back pain M54.9 [facility] [id number] [id number] 14 Aug, 2016 Back pain M54.9 [facility] [id number] [place] [address] [id number] 06 Aug, 2016 Back pain M54.9 [facility] [address] [place] [id number] Jul, Weakness R53.1 [facility] [address], [place] [address]- 1531 Jul, Seizure disorder G40.909 [facility] [address], [place] [address]- 9416 Jul, [facility] [address], [place] [address]- 5236 Jul, Breast cancer screening Z12.39 [facility] [address], [place] [address]- 5043 Jul, [facility] [address], [place] [address]- 1994 Jul, [facility] [address], [place] [address]- 7851 Jul, [facility] [address], [place] [address]- 9526 Jul, Seizure disorder G40.909 ; Fatigue, unspecified type R53.83 ; Perennial allergic rhinitis, unspecified allergic rhinitis trigger J30.89 and Chronic kidney disease, unspecified stage N18.9 [facility] [address] [place] [address] 19558- 0416 Jul, [facility] [id number] [place] [address] 76210- 9538 Jul, Seizure disorder G40.909 [facility] [id number] [place] [address] 74092- 1425 Jun, [facility] [id number] [place] [address] 26134- 7826 Jun, [address] [id number] Jun, Perennial allergic rhinitis, unspecified allergic rhinitis trigger J30.89 [facility] [id number] [place] [address] [id number] Jun, [facility] [id number] [place] [address] 94261- 3613 Jun, Seizure disorder G40.909 [facility] [id number] [place] [address] [id number] Jun, [facility] [id number] [place] [address] [id number] May, [facility] [id number] [place] [address] 86185- 5445 May, [facility] [id number] [place] [address] 225718- 5173 May, [facility] [id number] [place] [address] 994082- 8121 May, [facility] [address] [place] [address] 08024- 4580 May, History of CVA with residual deficit I69.30 [facility] [address], [place] [address]- 4511 May, [facility] [id number] [place] [address] 05347- 1304 May, [facility] [id number] [place] [address] 12143- 8011 May, [facility] [id number] [place] [address] 54044- 7459 May, Seizure disorder G40.909 [facility] [id number] [place] [address] 08633- 9119 May, [facility] [address] [place] [address] May, Back pain M54.9 and Seizure disorder G40.909 [facility] [id number] [place] [address] 24690- 3455 Apr, [facility] [address] [place] [address] 06126- 9267 Apr, Back pain M54.9 [facility] [id number] [place] [address] 81780- 6184 Mar, [facility] [address] [place] [address] Mar, Insomnia, unspecified type G47.00 [facility] [address], [place] [address]- 4486 Mar, [facility] [address] [place] [address] 73419- 9362 Feb, [facility] [id number] [place] [address] 82512- 7825 Feb, [facility] [address] [place] [address] 96070- 0015 16 Feb, 2016 [facility] [address], [place] [address]- 9412 Jan, [facility] [id number] [place] [address] 31887- 3544 Jan, [facility] [address] [place] [address] Jan, Seizure disorder G40.909 and Back pain M54.9 [facility] [id number] [place] [address] 62700- 6674 Dec, [facility] [id number] [place] [address] 59422- 0844 Dec, [facility] [id number] [place] [address] 35057- 6397 Dec, [facility] [id number] [place] [address] 19103- 0970 Nov, [facility] [id number] [place] [address] 88378- 7365 Nov, [facility] [id number] [place] [address] 32508- 8922 Nov, Back pain M54.9 [facility] [id number] [place] [address] 91420- 7611 October, [facility] [id number] [place] [address] 46016- 1300 October, Back pain M54.9 [facility] [id number] [place] [address] 90573- 6001 October, Seizure disorder G40.909 and B12 deficiency E53.8 [facility] [id number] [place] [address] 15638- 0534 Sep, History of CVA with residual deficit I69.30 [facility] [address] [place] [address] 24850- 3560 Sep, [facility] [id number], [place] [address]- 4251 18 Sep, 2015 [facility] [id number] [place] [address] 77131- 2539 Sep, Back pain M54.9 [facility] [id number] [place] [address] 70625- 6238 Sep, Seizure disorder G40.909 [facility] [id number] [place] [address] 86278- 8346 25 Aug, 2015 Back pain M54.9 [facility] [id number] [place] [address] 94246- 0759 18 Aug, 2015 Seizure disorder G40.909 [facility] [id number] [place] [address] 37219- 1551 16 Aug, 2015 Back pain M54.9 [facility] [id number] [place] [address] 56268- 2591 14 Aug, 2015 Heart failure, unspecified I50.9 [facility] [id number] [place] [address] 45423- 5240 14 Aug, 2015 Medication monitoring encounter Z51.81 [facility] [id number] [place] [address] 94683- 7939 15 Jul, 2015 [facility] [address] [place] [address] 47084- 3781 09 Jul, 2015 Seizure disorder G40.909 [facility] [id number] [place] [address] 12700- 9392 05 Jul, 2015 Back pain M54.9 [facility] [address] [place] [address] 66833- 3069 Jun, [facility] [id number] [place] [address] 58514- 2451 Jun, [facility] [id number] [place] [address] 15537- 5961 Jun, Mental status change R41.82 ; History of CVA with residual deficit I69.30 ; Back pain M54.9 and Seizure disorder G40.909 [facility] [id number], [place] [address]- 2126 Jun, [facility] [address], [place] [address]- 6566 May, [facility] [id number] [place] [address] 29906- 3056 Apr, [facility] [id number] [place] [address] 31780- 0573 Apr, Medication monitoring encounter Z51.81 [facility] [id number] [place] [address] 71979- 6386 Mar, Vomiting R11.10 [facility] [id number] [place] [address] 57512- 0426 Mar, [facility] [id number] [place] [address] 23459- 2874 Feb, [facility] [id number] [place] [address] 67671- 7092 Feb, UTI (urinary tract infection) 599.0 [facility] [address], [place] [address]- 6171 Jan, [facility] [address], [place] [address] 2546 Jan, [facility] [address], [place] [address] 2546 Jan, [facility] [id number] [place] [address] 39632- 8876 Dec, [facility] [address], [place] [address] 2546 Dec, [facility] [id number] [place] [address] 26138- 7296 Dec, [facility] [place] [facility] [address] [id number] [place] [address]- 8306 Dec, [facility] [place] [facility] [address] [id number] [place] [address]- 6956 Nov, UNKNOWN Nov, [facility] [place] [facility] [address] [id number] [place] [address]- 0726 October, [facility] [place] [facility] [address] [id number] [place] [address]- 4816 Sep, [facility] [place] [facility] [address] [id number] [place] [address]- 7604 Sep, [facility] [place] [facility] [address] [id number] [place] [address] Aug, [facility] [place] [facility] [address] [id number] [place] [address] Aug, [facility] [place] [facility] [address] [id number] [place] [address] Jul, [facility] [place] [facility] [address] [id number] [place] [address] Jul, [facility] [place] [facility] [address] [id number] [place] [address] Jul, [facility] [place] [facility] [address] [id number] [place] [address] Jul, [facility] [place] [facility] [address] [id number] [place] [address] Jul, [facility] [place] [facility] [address] [id number] [place] [address] Jun, [facility] [place] [facility] [address] [id number] [place] [address] Jun, [facility] [place] [facility] [address] [id number] [place] [address] Jun, [facility] [place] [facility] [address] [id number] [place] [address] Jun, [facility] [address] [id number] [place] [address] Jun, [facility] [place] [facility] [address] [id number] [place] [address] Jun, [facility] [address] [id number] [place] [address] Jun, [facility] [address] [id number] [place] [address] Jun, [facility] [address] [id number] [place] [address] Jun, [facility] [address] [id number] [place] [address] Jun, [facility] [address] [id number] [place] [address] Jun, [facility] [address] [id number] [place] [address] Jun, [facility] [address] [id number] [place] [address] Jun, [facility] [address] [id number] [place] [address] Jun[facility] [facility] [address] [id number] [place] [address] Jun, [facility] [address] [id number] [place] [address] 4889 Jun, [facility] [facility] [address] [id number] [place] [address] 5472 Jun, [facility] [place] [facility] [address] [id number] [place] [address] 9316 Jun, [facility] [place] [facility] [address] [id number] [place] [address] 7831 May, [facility] [address] [id number] [place] [address] 2446 May, [facility] [place] [facility] [address] [id number] [place] [address] 1948 May, [facility] [address] [id number] [place] [address] 1345 May, [facility] [place] [facility] [address] [id number] [place] [address]- 4592 May, [facility] [place] [facility] [address] [id number] [place] [address] May, [facility] [place] [facility] [address] [id number] [place] [address] 8909 May, [facility] [address] [id number] [place] [address]- 4024 May, [facility] [address] [id number] [place] [address]- 3220 May, [address] [place] [id number] May, [facility] [address] [id number] [place] [address]- 4014 May, [facility] [address] [id number] [place] [address]- 7893 May, [facility] [place] [facility] [address] [id number] [place] [address]- 7903 May, [facility] [place] [facility] [address] [id number] [place] [address]- 7643 Apr, [facility] [place] [facility] [address] [id number] [place] [address]- 7705 Apr, [facility] [address] [id number] [place] [address]- 9851 Apr, [facility] [place] [facility] [address] [id number], [place] [address]- 8[address] Apr, [facility] [place] [facility] [address] [id number] [place] [address]- 3836 Apr, [facility] [place] [facility] [address] [id number] [place] [address] Apr, [facility] [place] [facility] [address] [id number] [place] [address]- 5720 Mar, [facility] [place] [facility] [address] [id number] [place] [address]- 4340 Mar, [facility] [place] [facility] [address] [id number] [place] [address]- 1671 Mar, [facility] [place] [facility] [address] [id number] [place] [address]- 5151 Mar, [facility] [place] [facility] [address] [id number] [place] [address]- 6510 Mar, [facility] [place] [facility] [address] [id number] [place] [address]- 5762 Mar, [facility] [place] [facility] [address] [id number] [place] [address]- 8172 24 Feb, 2014 [facility] [facility] [address] [id number] [place] [address]- 9250 24 Feb, 2014 [facility] [address] [id number], [place] [address]- 4668 23 Feb, 2014 [facility] [address] [id number], [place] [address]- 4207 23 Feb, 2014 [facility] [address] [id number] [place] [address]- 6157 19 Feb, 2014 [facility] [address] [id number] [place] [address]- 7212 19 Feb, 2014 [facility] [address] [id number] [place] [address]- 5904 19 Feb, 2014 [facility] [place] [address] [id number] [place] [address]- 8325 Feb, [facility] [address] [id number] [place] [address]- 3450 Feb, [facility] [place] [address] [id number] [place] [address]- 1649 Feb, [facility] [address] [facility] [place] [id number] Feb, [facility] [address] [id number] [place] [address] 0449 Feb, [facility] [address] [id number] [place] [address]- 8752 Jan, [facility] [address] [id number] [place] [address]- 4450 Jan, [facility] [address] [id number] [place] [address]- 6086 Dec, [facility] [address] [id number] [place] [address]- 3021 Dec, [facility] [address] [id number] [place] [address]- 2330 Dec, [facility] [address] [id number] [place] [address]- 6577 Dec, [facility] [address] [id number] [place] [address]- 8664 Dec, [facility] [address] [id number] [place] [address]- 2703 Dec, [facility] [address] [id number] [place] [address]- 9512 Dec, [facility] [address] [id number] [place] [address]- 7779 Dec, [facility] [address] [id number] [place] [address]- 7479 Dec, [facility] [address] [id number] [place] [address]- 5420 Dec, [facility] [address] [id number] [place] [address]- 6086 Nov, [facility] [address] [id number] [place] [address]- 1268 Nov, [facility] [address] [id number] [place] [address]- 2679 Nov, [facility] [address] [id number] [place] [address]- 8847 Nov, [facility] [address] [id number] [place] [address]- 8726 Nov, [facility] [address] [id number] [place] [address]- 2437 Nov, [facility] [address] [id number] [place] [address]- 3155 Nov, [facility] [address] [id number] [place] [address]- 7729 Nov, [facility] [address] [id number] [place] [address]- 4741 Nov, [facility] [address] [id number] [place] [address]- 0225 Nov, [facility] [address] [id number] [place] [address]- 8011 Nov, [facility] [address] [id number] [place] [address]- 7416 Nov, [facility] [address] [id number] [place] [address]- 5115 Nov, [facility] [address] [id number] [place] [address]- 5640 Nov, [facility] [address] [id number] [place] [address]- 0225 October, [facility] [address] [id number] [place] [address]- 1933 October, [facility] [address] [id number] [place] [address]- 3910 October, [facility] [address] [id number] [place] [address]- 9787 October, [facility] [address] [id number] [place] [address]- 8666 October, [facility] [address] [id number] [place] [address]- 2181 October, [facility] [address] [id number] [place] [address]- 7765 October, [facility] [address] [id number] [place] [address]- 6958 October, [facility] [address] [id number] [place] [address]- 9641 October, [facility] [address] [id number] [place] [address]- 4698 October, [facility] [address] [id number] [place] [address]- 4125 Sep, [facility] [address] [id number] [place] [address]- 1601 Sep, [facility] [address] [id number] [place] [address]- 2412 Sep, [facility] [address] [id number] [place] [address]- 3903 Sep, [facility] [address] [id number] [place] [address]- 6825 Sep, [facility] [address] [id number] [place] [address]- 2892 Sep, [facility] [address] [id number] [place] [address]- 4902 Sep, [facility] [address] [id number] [place] [address]- 5167 Sep, [facility] [address] [id number] [place] Sep, [facility] [address] [id number] [place] [address]- 4328 Sep, [facility] [address] [id number] [place] [address]- 4179 Aug, [facility] [address] [id number] [place] [address]- 2639 Aug, [facility] [address] [id number] [place] [address]- 2196 Aug, [facility] [address] [id number] [place] [address]- 8095 Aug, [facility] [address] [id number] [place] [address]- 8399 Aug, [facility] [address] [id number] [place] [address]- 5078 Aug, [facility] [address] [facility] [id number] [place] [address]- 3092 Aug, [facility] [address] [id number] [place] [address]- 3375 Aug, [facility] [address] [facility] [id number] [place] [address]- 6376 Aug, [facility] [address] [id number] [place] [address]- 9355 Jul, [facility] [address] [id number] [place] [address]- 8828 Jul, [facility] [address] [id number] [place] [address]- 8334 Jul, [facility] [address] [id number] [place] [address]- 0526 Jul, [facility] [address] [id number] [place] [address]- 6286 Jul, [facility] [address] [id number] [place] [address]- 9386 Jul, [facility] [address] [id number] [place] [address]- 5646 Jul, [facility] [address] [id number] [place] [address]- 3426 Jul, [facility] [address] [id number] [place] [address]- 0226 Jul, [facility] [address] [id number] [place] [address]- 0080 Jul, [facility] [address] [id number] [place] [address]- 7252 Jul, [facility] [address] [id number] [place] [address]- 3402 Jul, [facility] [address] [facility] [id number] [place] [address]- 8208 Jul, [facility] [address] [id number] [place] [address]- 3909 Jul, [facility] [address] [id number] [place] [address]- 2943 Jul, [facility] [address] [id number] [place] [address]- 3275 Jul, [facility] [address] [id number] [place] [address]- 6355 Jun, [facility] [address] [facility] [id number] [place] [address]- 3092 Jun, [facility] [address] [id number] [place] [address]- 0408 16 Jun, 2013 [facility] [address] [id number] [place] [address]- 0943 16 Jun, 2013 [facility] [address] [id number] [place] [address]- 9440 Jun, [facility] [address] [id number] [place] [address]- 6437 Jun, [facility] [address] [id number] [place] [address]- 3649 May, [facility] [address] [id number] [place] [address]- 4995 May, [facility] [address] [id number] [place] [address]- 1398 May, [facility] [address] [id number] [place] [address]- 6337 May, [facility] [address] [id number] [place] [address]- 0162 Apr, [facility] [address] [id number] [place] [address]- 6468 Apr, [facility] [address] [id number] [place] [address]- 2790 Apr, [facility] [address] [id number] [place] [address]- 4394 Apr, [facility] [address] [id number] [place] [address]- 5219 Apr, [facility] [address] [id number] [place] [address]- 8174 Apr, [facility] [address] [id number] [place] [address]- 8449 Apr, [facility] [address] [id number] [place] [address]- 4613 Apr, [facility] [address] [id number] [place] [address]- 2078 18 Apr, 2013 [facility] [address] [id number] [place] [address]- 2697 18 Apr, 2013 [facility] [address] [facility] [id number] [place] [address]- 7412 Apr, [facility] [address] [id number] [place] [address]- 1432 Apr, [facility] [address] [id number] [place] [address]- 1924 28 Mar, 2013 [facility] [address] [id number] [place] [address]- 8644 28 Mar, 2013 [facility] [address] [id number] [place] [address]- 2165 16 Mar, 2013 [facility] [address] [id number], [place] [address]- 6043 16 Mar, 2013 [facility] [address] [id number], [place] [address]- 4706 15 Mar, 2013 [facility] [address] [id number], [place] [address]- 3221 15 Mar, 2013 [facility] [address] [id number], [place] [address]- 9887 27 Sep, 2012 [facility] [address] [id number], [place] [address]- 2547 25 Sep, 2012 [facility] [address] [id number], [place] [address] 2546 25 Sep, 2012 [facility] [address] [id number], [place] [address]- 7420 23 Sep, 2012 [facility] [address] [id number], [place] [address]- 2546 17 Sep, 2012 [facility] [facility] [address] [id number] [place] [address]- 1695 10 Feb, 2013 [facility] [place] [facility] [address] [id number] [place] [address]- 7534 Feb, [facility] [place] [facility] [address] [id number] [place] [address]- 1122 Jan, [facility] [place] [facility] [address] [id number] [place] [address]- 7075 Jan, [facility] [place] [facility] [address] [id number] [place] [address]- 9422 Jan, [facility] [place] [facility] [address] [id number] [place] [address]- 9557 Jan, [facility] [place] [facility] [address] [id number] [place] [address]- 0986 Jan, [facility] [place] [facility] [address] [id number] [place] [address]- 6233 Jan, [facility] [place] [facility] [address] [id number] [place] [address]- 5010 Jan, [facility] [place] [facility] [address] [id number] [place] [address]- 6517 Dec, [facility] [facility] [address] [id number] [place] [address]- 7856 Dec, [facility] [place] [facility] [address] [id number] [place] [address]- 8325 Dec, [facility] [place] [facility] [address] [id number] [place] [address]- 0455 Dec, [facility] [place] [facility] [address] [id number] [place] [address]- 1018 Dec, [facility] [place] [facility] [address] [id number] [place] [address]- 4212 Dec, [facility] [place] [facility] [address] [id number] [place] [address]- 0861 Nov, [facility] [place] [facility] [address] [id number] [place] [address]- 3767 Nov, [facility] [address] [id number] [place] [address]- 7522 Nov, [facility] [address] [id number] [place] [address]- 4851 Nov, [facility] [address] [id number] [place] [address]- 5275 October, [facility] [address] [id number] [place] [address]- 7109 October, [facility] [address] [id number] [place] [address]- 1992 October, [facility] [address] [id number] [place] [address]- 0457 October, [facility] [address] [id number] [place] [address]- 0429 Sep, [facility] [address] [id number] [place] [address]- 1643 Sep, [facility] [address] [id number] [place] [address]- 1878 Sep, [facility] [address] [id number] [place] [address]- 0313 Sep, [facility] [address] [id number] [place] [address]- 2681 Sep, [facility] [address] [id number] [place] [address]- 0544 Sep, [facility] [place] [facility] [address] [id number] [place] [address]- 8963 Sep, [facility] [address] [id number] [place] [address]30 Sep, [facility] [address] [id number] [place] [address]- 2384 13 Aug, 2012 [facility] [address] [id number] [place] [address]- 2669 13 Aug, 2012 [facility] [address] [id number] [place] [address]- 5473 05 Aug, 2012 [facility] [address] [id number] [place] [address]- 8216 18 Jul, 2012 [facility] [address] [id number] [place] [address]- 0153 08 Jul, 2012 [facility] [address] [id number] [place] [address]- 6683 07 Jul, 2012 [facility] [address] [id number] [place] [address]- 6150 06 Jul, 2012 [facility] [address] [id number] [place] [address]- 8231 05 Jul, 2012 [facility] [address] [id number] [place] [address]- 1689 Jun, [facility] [address] [id number] [place] [address]- 9713 Jun, [facility] [address] [facility] [id number] [place] [address]- 3939 Jun, [facility] [address] [id number] [place] [address]- 7207 May, [facility] [address] [id number] [place] [address]- 4210 May, [facility] [place] [facility] [address] [id number] [place] [address] May, [facility] [place] [facility] [address] [id number] [place] [address] May, [facility] [address] [facility] [id number] [place] [address] May, [facility] [place] [facility] [address] [id number] [place] [address] May, [facility] [place] [facility] [address] [id number] [place] [address] May, [facility] [place] [facility] [address] [id number] [place] [address] Apr, [facility] [place] [facility] [address] [id number] [place] [address] Apr, [facility] [place] [facility] [address] [id number] [place] [address] Apr, [facility] [place] [facility] [address] [id number] [place] [address] Apr, [facility] [place] [facility] [address] [id number] [place] [address] Apr, [facility] [place] [facility] [address] [id number] [place] [address] Apr, [facility] [place] [facility] [address] [id number] [place] [address] Apr, [facility] [place] [facility] [address] [id number] [place] [address] Apr, [facility] [place] [facility] [address] [id number] [place] [address] Apr, [facility] [place] [facility] [address] [id number] [place] [address] Apr, [facility] [place] [facility] [address] [id number] [place] [address] Apr, [facility] [place] [facility] [address] [id number] [place] [address] Mar, [facility] [place] [facility] [address] [id number] [place] [address] Mar, [facility] [place] [facility] [address] [id number] [place] [address] 76[address] Mar, [facility] [place] [facility] [address] [id number] [place] [address] 114[address] Mar, [facility] [place] [facility] [address] [id number] [place] [address] Mar, [facility] [place] [facility] [address] [id number] [place] [address] Mar, [facility] [place] [facility] [address] [id number] [place] [address] Mar, [facility] [place] [facility] [address] [id number] [place] [address] 19 Mar, 2012 [facility] [place] [facility] [address] [id number] [place] [address] 16 Mar, 2012 [facility] [place] [facility] [address] [id number] [place] [address] 16 Mar, 2012 [facility] [place] [facility] [address] [id number], [place] [address] 04 Mar, 2012 [facility] [place] [facility] [address] [id number] [place] [address] 28 Sep, 2011 [facility] [place] [facility] [address] [id number] [place] [address] 27 Sep, 2011 [facility] [place] [facility] [address] [id number], [place] [address] 27 Sep, 2011 [facility] [place] [facility] [address] [id number], [place] [address] 26 Sep, 2011 [facility] [place] [facility] [address] [id number] [place] [address] 24 Sep, 2011 [facility] [place] [facility] [address] [id number], [place] [address]- [address] 19 Sep, 2011 [facility] [place] [facility] [address] [id number], [place] [address] 18 Sep, 2011 [facility] [place] [facility] [address] [id number] [place] [address] Feb, [facility] [address] [id number] [place] [address] Feb, [facility] [place] [facility] [address] [id number] [place] [address] Jan, [facility] [address] [id number] [place] [address] Jan, [facility] [place] [facility] [address] [id number] [place] [address] Jan, [facility] [place] [facility] [address] [id number] [place] [address] Jan, [facility] [place] [facility] [address] [id number] [place] [address] Dec, [facility] [address] [id number] [place] [address] Dec, [facility] [address] [id number] [place] [address] Dec, [facility] [place] [facility] [address] [id number] [place] [address] Dec, [facility] [address] [id number] [place] [address] Dec, [facility] [place] [facility] [address] [id number] [place] [address] Dec, [facility] [place] [facility] [address] [id number] [place] [address]- 9[address] Dec, [facility] [place] [facility] [address] [id number] [place] [address]100 Dec, [facility] [place] [facility] [address] [id number] [place] [address] 119[address] Dec, [facility] [place] [facility] [address] [id number] [place] [address] 8414 Dec, [facility] [place] [facility] [address] [id number] [place] [address] Dec, [facility] [place] [facility] [address] [id number] [place] [address]33 Dec, [facility] [place] [facility] [address] [id number] [place] [address]- 97[address] Dec, [facility] [place] [facility] [address] [id number] [place] [address] 39[address] Dec, [facility] [place] [facility] [address] [id number] [place] [address] Nov, [facility] [place] [facility] [address] [id number] [place] [address] 280[address] Nov, [facility] [place] [facility] [address] [id number] [place] [address]- 1104 Nov, [facility] [place] [facility] [address] [id number] [place] [address]- [address] Nov, [facility] [place] [facility] [address] [id number] [place] [address] 9472 Nov, [facility] [place] [facility] [address] [id number] [place] [address]163 Nov, [facility] [place] [facility] [address] [id number] [place] [address]- 66[address] October, [facility] [place] [facility] [address] [id number] [place] [address] October, [facility] [place] [facility] [address] [id number] [place] [address]- 7070 October, [facility] [place] [facility] [address] [id number] [place] [address] 1793 October, [facility] [place] [facility] [address] [id number] [place] [address]- 1007 Sep, [facility] [place] [facility] [address] [id number] [place] [address]- [address] 17 Sep, 2011 [facility] [address] [id number] [place] [address]- [address] 13 Sep, 2011 [facility] [address] [id number] [place] [address]- [address]60 09 Sep, 2011 [facility] [address] [facility] [id number] [place] [address]- [address] Sep, [facility] [address] [id number] [place] [address]- [address] Aug, [facility] [facility] [address] [id number] [place] [address] Aug, [facility] [address] [facility] [id number] [place] [address] Aug, [facility] [address] [facility] [id number] [place] [address] Aug, [facility] [address] [facility] [id number] [place] [address] Aug, [facility] [address] [facility] [id number] [place] [address] Aug, [facility] [address] [facility] [id number] [place] [address] Aug, [facility] [address] [facility] [id number] [place] [address] 16 Jul, 2011 [facility] [address] [facility] [id number] [place] [address] 16 Jul, 2011 [facility] [address] [id number] [place] [address] 15 Jul, 2011 [facility] [address] [facility] [id number] [place] [address] 15 Jul, 2011 [facility] [address] [facility] [id number], [place] [address] 24 Jun, 2011 [facility] [address] [place], [place] [id number] Jun, [facility] [address] [id number] [place] [address] Jun, [facility] [address] [id number] [place] [address] Jun, [facility] [address] [id number] [place] [address] Jun, [facility] [address] [id number] [place] [address] Jun, [facility] [address] [id number] [place] [address] Jun, [facility] [address] [id number] [place] [address] Jun, [facility] [address] [facility] [id number] [place] [address] May, [facility] [address] [id number] [place] [address] May, [facility] [address] [id number] [place] [address] May, [facility] [address] [facility] [id number] [place] [address] May, [facility] [address] [id number] [place] [address] May, [facility] [address] [id number] [place] [address] May, [facility] [address] [id number] [place] [address] May, [facility] [address] [id number] [place] [address] Apr, [facility] [address] [id number] [place] [address] 17 Apr, 2011 [facility] [place] [facility] [address] [id number] [place] [address] Apr, [facility] [place] [facility] [address] [id number] [place] [address]395 27 Mar, 2011 [facility] [place] [facility] [address] [id number] [place] [address] 20 Mar, 2011 [facility] [place] [facility] [address] [id number] [place] [address] 39[address] 14 Mar, 2011 [facility] [place] [facility] [address] [id number] [place] [address] 1669 11 Mar, 2011 [facility] [place] [facility] [address] [id number] [place] [address] 10 Mar, 2011 [facility] [place] [facility] [address] [id number] [place] [address] 10 Mar, 2011 [facility] [place] [facility] [address] [id number] [place] [address] Mar, [facility] [place] [facility] [address] [id number] [place] [address] Jan, [facility] [place] [facility] [address] [id number] [place] [address] May, [facility] [place] [facility] [address] [id number] [place] [address] May, [facility] [place] [facility] [address] [id number], [place] [address] 13 May, 2010 [facility] [place] [facility] [address] [id number] [place] [address] 13 May, 2010 [facility] [place] [facility] [address] [id number] [place] [address] 10 May, 2010 [facility] [place] [facility] [address] [id number] [place] [address] 06 May, 2010 [facility] [place] [facility] [address] [id number], [place] [address] Apr, [facility] [place] [facility] [address] [id number] [place] [address] Apr, [facility] [place] [facility] [address] [id number], [place] [address] Apr, [facility] [place] [facility] [address] [id number] [place] [address] Apr, [facility] [place] [facility] [address] [id number], [place] [address] 15 Apr, 2010 [facility] [place] [facility] [address] [id number] [place] [address] Apr, [facility] [place] [facility] [address] [id number] [place] [address] Apr, [facility] [place] [facility] [address] [facility] [id number], [place] [address] Apr, [facility] [place] [facility] [address] [id number] [place] [address] Apr, [facility] [place] [facility] [address] [id number], [place] [address] Apr, [facility] [place] [facility] [address] [id number] [place] [address] Mar, [facility] [place] [facility] [address] [id number], [place] [address] Mar, [facility] [place] [facility] [address] [id number], [place] [address] Mar, [facility] [place] [facility] [address] [id number], [place] [address] Mar, [facility] [place] [facility] [address] [id number], [place] [address] Mar, [facility] [place] [facility] [address] [id number], [place] [address] Dec, [facility] [place] [facility] [address] [facility] [id number] [place] [address] 10 Nov, 2009 IMMUNIZATIONS No Known Immunizations SOCIAL HISTORY Never Assessed REASON FOR VISIT Coumadin change PLAN OF CARE VITAL SIGNS MEDICATIONS Medication Instructions Dosage Frequency Start Date End Date Duration Status Coumadin 1 MG Orally 1 mg MWF, 1.5mg other days 1 tablet Active RESULTS [...]
--- OUTSIDE RECORDS SUMMARY | 2018-07-05 15:14 | XMS REPORT ---
Author Author NAHOMY BETH Organization [facility] Address [address] [place] [address] Care Team Providers Care Block Out Machine Operator Name Role Phone NAHOMY BETH Unavailable PROBLEMS Type Condition ICD9-CM Code HZX25-PK Code Onset Dates Condition Status SNOMED Code Problem Anemia, unspecified type D64.9 Active 425647957 Problem Personality disorder F60.9 Active 17567612 Problem Factitious disorder imposed on self, recurrent episode F68.10 Active 00806345 Problem Ventral hernia without obstruction or gangrene K43.9 Active 816911579 Problem Allergic state, subsequent encounter T78.40XD Active 091347882 Problem Anxiety F41.9 Active 47126139 Problem Age-related osteoporosis without current pathological fracture M81.0 Active 98147407 Problem Unspecified psychosis not due to a substance or known physiological condition F29 Active 59236587 Problem Iron deficiency anemia, unspecified iron deficiency anemia type D50.9 Active 10237955 Problem History of CVA with residual deficit I69.30 Active 987471940 Problem Seizure disorder G40.909 Active 700150916 Problem Perennial allergic rhinitis, unspecified allergic rhinitis trigger J30.89 Active 503712367 Problem Chronic kidney disease, unspecified stage N18.9 Active 710793800 Problem Back pain M54.9 Active 245888430 Problem Gastroesophageal reflux disease without esophagitis K21.9 Active 803914319 Problem Insomnia, unspecified type G47.00 Active 507463494 Problem History of colon polyps Z86.010 Active 012102477 ALLERGIES No Information ENCOUNTERS Encounter Location Date Diagnosis [facility] [id number] [address] Feb, [facility] [address] [facility] [id number] [address] Jan, [facility] [address], [place] [address] 0[address] Jan, [facility] [address], [place] [address] Jan, Back pain M54.9 [facility] [address], [place] [address] 1998 Jan, [facility] [id number] [place] [address] 99868- 6565 Jan, Unspecified psychosis not due to a substance or known physiological condition F29 ; Personality disorder F60.9 and Factitious disorder imposed on self, recurrent episode F68.10 [facility] [id number] [place] [address] 90246- 8367 Dec, Back pain M54.9 ; Seizure disorder G40.909 ; Ventral hernia without obstruction or gangrene K43.9 and History of CVA with residual deficit I69.30 [address] [address], [place] [address] 9[address] Dec, Unspecified psychosis not due to a substance or known physiological condition F29 ; Personality disorder F60.9 and Factitious disorder imposed on self, recurrent episode F68.10 [facility] [address], [place] [address] 25[address] Dec, [facility] [address], [place] [address] 1210 Dec, Back pain M54.9 [facility] [address], [place] [address] 9580 Dec, Factitious disorder imposed on self, recurrent episode F68.10 ; Personality disorder F60.9 ; Insomnia, unspecified type G47.00 and Anxiety F41.9 [facility] [address], [place] [address] 4377 Nov, Unspecified psychosis not due to a substance or known physiological condition F29 ; Personality disorder F60.9 and Factitious disorder imposed on self, recurrent episode F68.10 [facility] [address], [place] [address] 2613 Nov, Back pain M54.9 [facility] [id number] [place] [address] 48907- 9460 Nov, Unspecified psychosis not due to a substance or known physiological condition F29 ; Personality disorder F60.9 and Factitious disorder imposed on self, recurrent episode F68.10 [facility] [id number] [place] [address] 02095- 2772 October, [facility] [id number] [place] [address] 41267- 0344 October, [facility] [id number] [place] [address] 14962- 4881 October, Unspecified psychosis not due to a substance or known physiological condition F29 ; Personality disorder F60.9 and Factitious disorder imposed on self, recurrent episode F68.10 [facility] [id number] [place] [address] 71898- 2364 October, Back pain M54.9 [facility] [id number] [place] [address] 61237- 0370 October, Seizure disorder G40.909 ; Back pain M54.9 and Allergic state, subsequent encounter T78.40XD [facility] [address], [place] [address] 6249 October, [facility] [id number] [place] [address] 63409- 5804 Sep, Back pain M54.9 [facility] [id number] [place] [address] 28947- 9052 Sep, Unspecified psychosis not due to a substance or known physiological condition F29 ; Personality disorder F60.9 and Factitious disorder imposed on self, recurrent episode F68.10 [facility] [id number] [place] [address] 11961- 3242 Sep, [facility] [id number], [place] [address] 8306 Sep, [facility] [address], [place] [address] 6062 Sep, [facility] [address], [place] [address] 2493 Sep, [facility] [id number] [place] [address] 25753- 3376 Aug, [facility] [address], [place] [address] 2057 Aug, Back pain M54.9 [facility] [address], [place] [address] 2941 Aug, Factitious disorder imposed on self, recurrent episode F68.10 ; Personality disorder F60.9 ; Insomnia, unspecified type G47.00 and Anxiety F41.9 [facility] [address], [place] [address] 2663 Aug, Back pain M54.9 ; Iron deficiency anemia, unspecified iron deficiency anemia type D50.9 ; Chronic kidney disease, unspecified stage N18.9 and Breast cancer screening Z12.31 [facility] [id number] [id number] Jul, Back pain M54.9 [facility] [id number] [id number] Jul, [facility] [id number] [address] Jul, [facility] [id number] [address] Jun, Back pain M54.9 [facility] [id number] [address] Jun, [facility] [id number] [place] [address] [id number] Jun, Back pain M54.9 [facility] [address] [place] [address] 84397- 4467 Jun, Back pain M54.9 ; Seizure disorder G40.909 and Age-related osteoporosis without current pathological fracture M81.0 [facility] [id number] [place] [address] [phone] May, [facility] [id number] [place] [address] 27110- 0561 May, Back pain M54.9 [facility] [id number] [place] [address] 53510- 8720 Apr, Back pain M54.9 ; Encounter for immunization Z23 ; Gastroesophageal reflux disease without esophagitis K21.9 ; Age-related osteoporosis without current pathological fracture M81.0 and Chronic pruritus L29.9 [facility] [id number] [place] [address] 89104- 2135 Apr, History of CVA with residual deficit I69.30 [facility] [id number] [place] [address] 65721- 1214 Apr, Factitious disorder imposed on self, recurrent episode F68.10 and Personality disorder F60.9 [facility] [id number] [place] [address] [id number] Apr, Back pain M54.9 [facility] [id number] [place] [address] 49620- 2309 Mar, Factitious disorder imposed on self, recurrent episode F68.10 [facility] [id number] [place] [address] 67764- 0056 Mar, [place] [facility] [id number] [place] [address] [id number] Mar, [place] [facility] [id number] [place] [address] [id number] Mar, Back pain M54.9 [facility] [address], [place] [address]- 0814 05 Mar, 2017 Back pain M54.9 ; Seizure disorder G40.909 and Age-related osteoporosis without current pathological fracture M81.0 [facility] [address], [place] [address]- 4186 19 Feb, 2017 History of CVA with residual deficit I69.30 [facility] [id number] [place] [address] 17817- 7901 Feb, Factitious disorder imposed on self, recurrent episode F68.10 and Personality disorder F60.9 [facility] [id number] [place] [address] 73420- 3357 15 Feb, 2017 Back pain M54.9 [facility] [id number] [place] [address] 17470- 6160 Feb, [facility] [id number] [place] [address] 11343- 0199 Jan, [facility] [address] [id number] Jan, Age- related osteoporosis without current pathological fracture M81.0 and Allergic state, subsequent encounter T78.40XD [facility] [id number] [place] [address] 19863- 0863 Jan, Factitious disorder imposed on self, recurrent episode F68.10 and Personality disorder F60.9 [address], [place] [address]- 7198 Dec, Back pain M54.9 [facility] [address], [place] [address]- 9583 Dec, Personality disorder F60.9 and Factitious disorder imposed on self, recurrent episode F68.10 [facility] [id number] [id number] Dec, Back pain M54.9 [facility] [id number] [place] [address] [id number] Dec, [facility] [id number] [id number] Dec, [facility] [address], [place] [address]- 6746 Dec, [facility] [address], [place] [address]- 3805 Nov, [facility] [address], [place] [address]- 8689 Nov, Back pain M54.9 ; Anemia, unspecified type D64.9 and History of colon polyps Z86.010 [facility] [address], [place] [address]- 9784 Nov, Back pain M54.9 [facility] [id number] [id number] October, Back pain M54.9 [facility] [address] [place] [id number] October, Back pain M54.9 and Gastroesophageal reflux disease without esophagitis K21.9 [facility] [id number] [place] [address] [id number] Sep, [facility] [address] [address] 0974 Sep, [facility] [address], [place] [address]- 8700 Sep, [facility] [address] [address] 9827 Sep, [facility] [address], [place] [address]- 1636 Sep, [facility] [address] [address] 9205 Sep, Seizure disorder G40.909 [facility] [address] [address] 7744 Sep, Back pain M54.9 [facility] [address], [place] [address]- 4158 Sep, [facility] [address], [place] [address] 2546 Aug, Back pain M54.9 [facility] [id number], [place] [address]- 7976 Aug, Seizure disorder G40.909 [facility] [id number] [address] Aug, [facility] [id number] [place] [address] [id number] 16 Aug, 2016 Back pain M54.9 [facility] [id number] [address] 14 Aug, 2016 Back pain M54.9 [facility] [id number] [place] [address] [id number] 06 Aug, 2016 Back pain M54.9 [facility] [address] [id number] Jul, Weakness R53.1 [facility] [address], [place] [address]- 8685 Jul, Seizure disorder G40.909 [facility] [address], [place] [address]- 4873 Jul, [facility] [address], [place] [address]- 0664 Jul, Breast cancer screening Z12.39 [facility] [address], [place] [address]- 6327 Jul, [facility] [address], [place] [address]- 4778 Jul, [facility] [address], [place] [address]- 9988 Jul, [facility] [address], [place] [address]- 7966 Jul, Seizure disorder G40.909 ; Fatigue, unspecified type R53.83 ; Perennial allergic rhinitis, unspecified allergic rhinitis trigger J30.89 and Chronic kidney disease, unspecified stage N18.9 [facility] [id number] [place] [address] 33014- 3708 Jul, [facility] [id number] [place] [address] 43867- 2617 Jul, Seizure disorder G40.909 [facility] [id number] [place] [address] 10502- 0472 Jun, [facility] [id number] [place] [address] 80043- 7606 Jun, [address] [id number] Jun, Perennial allergic rhinitis, unspecified allergic rhinitis trigger J30.89 [facility] [id number] [place] [address] [id number] Jun, [facility] [id number] [place] [address] 40795- 9969 Jun, Seizure disorder G40.909 [facility] [id number] [place] [address] [id number] Jun, [facility] [id number] [place] [address] [id number] May, [facility] [id number] [place] [address] 32077- 3760 May, [facility] [id number] [place] [address] 888616- 1042 May, [facility] [id number] [place] [address] 025546- 9742 May, [facility] [id number] [place] [address] 52969- 4747 May, History of CVA with residual deficit I69.30 [facility] [address], [place] [address]- 3875 May, [facility] [id number] [place] [address] 05072- 4653 May, [facility] [id number] [place] [address] 73968- 5906 May, [facility] [id number] [place] [address] 82552- 9392 May, Seizure disorder G40.909 [facility] [id number] [place] [address] 31665- 0219 May, [facility] [address] [place] [address] May, Back pain M54.9 and Seizure disorder G40.909 [facility] [id number] [place] [address] 03362- 1186 Apr, [facility] [id number] [place] [address] 17498- 8231 Apr, Back pain M54.9 [facility] [id number] [place] [address] 19737- 5278 Mar, [facility] [address] [place] [address] Mar, Insomnia, unspecified type G47.00 [facility] [address], [place] [address]- 5385 Mar, [facility] [id number] [place] [address] 36862- 7766 Feb, [facility] [id number] [place] [address] 38622- 8333 Feb, [facility] [id number] [place] [address] 71466- 8358 16 Feb, 2016 [facility] [address], [place] [address]- 3041 Jan, [facility] [id number] [place] [address] 15778- 6321 Jan, [facility] [address] [place] [address] Jan, Seizure disorder G40.909 and Back pain M54.9 [facility] [id number] [place] [address] 07897- 0719 Dec, [facility] [id number] [place] [address] 69887- 6875 Dec, [facility] [id number] [place] [address] 93051- 7997 Dec, [facility] [id number] [place] [address] 48181- 9219 Nov, [facility] [id number] [place] [address] 62368- 6112 Nov, [facility] [id number] [place] [address] 67287- 5145 Nov, Back pain M54.9 [facility] [id number] [place] [address] 20166- 6051 October, [facility] [id number] [place] [address] 00890- 0252 October, Back pain M54.9 [facility] [id number] [place] [address] 09955- 8897 October, Seizure disorder G40.909 and B12 deficiency E53.8 [facility] [id number] [place] [address] 49871- 4069 Sep, History of CVA with residual deficit I69.30 [facility] [address] [place] [address] 00461- 9784 Sep, [facility] [id number], [place] [address]- 0564 18 Sep, 2015 [facility] [id number] [place] [address] 70009- 4319 Sep, Back pain M54.9 [facility] [id number] [place] [address] 62601- 7487 Sep, Seizure disorder G40.909 [facility] [id number] [place] [address] 17467- 0249 25 Aug, 2015 Back pain M54.9 [facility] [id number] [place] [address] 63934- 5282 18 Aug, 2015 Seizure disorder G40.909 [facility] [id number] [place] [address] 76378- 2209 16 Aug, 2015 Back pain M54.9 [facility] [id number] [place] [address] 76597- 4278 14 Aug, 2015 Heart failure, unspecified I50.9 [facility] [id number] [place] [address] 63361- 1321 14 Aug, 2015 Medication monitoring encounter Z51.81 [facility] [id number] [place] [address] 37589- 4183 15 Jul, 2015 [facility] [id number] [place] [address] 54100- 2090 09 Jul, 2015 Seizure disorder G40.909 [facility] [id number] [place] [address] 75654- 8477 05 Jul, 2015 Back pain M54.9 [facility] [id number] [place] [address] 47917- 2497 Jun, [facility] [id number] [place] [address] 17196- 1314 Jun, [facility] [id number] [place] [address] 02587- 4149 Jun, Mental status change R41.82 ; History of CVA with residual deficit I69.30 ; Back pain M54.9 and Seizure disorder G40.909 [facility] [id number], [place] [address]- 0356 Jun, [facility] [address], [place] [address]- 1126 May, [facility] [id number] [place] [address] 82167- 5326 Apr, [facility] [id number] [place] [address] 84305- 2687 Apr, Medication monitoring encounter Z51.81 [facility] [id number] [place] [address] 18731- 0627 Mar, Vomiting R11.10 [facility] [id number] [place] [address] 90507- 1366 Mar, [facility] [id number] [place] [address] 94962- 3239 Feb, [facility] [id number] [place] [address] 18080- 3862 Feb, UTI (urinary tract infection) 599.0 [facility] [address], [place] [address]- 2054 Jan, [facility] [address], [place] [address] 2546 Jan, [facility] [address], [place] [address] 2546 Jan, [facility] [id number] [place] [address] 33882- 4576 Dec, [facility] [address], [place] [address] 2546 Dec, [facility] [id number] [place] [address] Dec, [facility] [place] [facility] [address] [id number] [place] [address] Dec, [facility] [place] [facility] [address] [id number] [place] [address] Nov, UNKNOWN Nov, [facility] [place] [facility] [address] [id number] [place] [address] October, [facility] [place] [facility] [address] [id number] [place] [address] Sep, [facility] [place] [facility] [address] [id number] [place] [address] Sep, [facility] [place] [facility] [address] [id number] [place] [address] Aug, [facility] [place] [facility] [address] [id number] [place] [address] Aug, [facility] [place] [facility] [address] [id number] [place] [address] Jul, [facility] [place] [facility] [address] [id number] [place] [address] Jul, [facility] [place] [facility] [address] [id number] [place] [address] Jul, [facility] [place] [facility] [address] [id number] [place] [address] Jul, [facility] [place] [facility] [address] [id number] [place] [address] Jul, [facility] [place] [facility] [address] [id number] [place] [address] Jun, [facility] [place] [facility] [address] [id number] [place] [address] Jun, [facility] [place] [facility] [address] [id number] [place] [address] Jun, [facility] [place] [facility] [address] [id number] [place] [address] Jun, [facility] [address] [id number] [place] [address] 78[address] Jun, [facility] [place] [facility] [address] [id number] [place] [address] 1710 Jun, [facility] [address] [id number] [place] [address] 2410 Jun, [facility] [address] [id number] [place] [address] 1078 Jun, [facility] [address] [id number] [place] [address] 9303 Jun, [facility] [address] [id number] [place] [address] 0542 Jun, [facility] [address] [id number] [place] [address] 3595 Jun, [facility] [address] [id number] [place] [address] 7757 Jun, [facility] [address] [id number] [place] [address] 3233 Jun, [facility] [address] [id number] [place] [address] 0470 Jun, [facility] [place] [facility] [address] [id number] [place] [address] 7807 Jun, [facility] [address] [id number] [place] [address] Jun, [facility] [place] [facility] [address] [id number] [place] [address]- 6946 Jun, [facility] [place] [facility] [address] [id number] [place] [address]- 6256 Jun, [facility] [place] [facility] [address] [id number] [place] [address]- 5111 May, [facility] [address] [id number] [place] [address]- 5369 May, [facility] [place] [facility] [address] [id number] [place] [address]- 9171 May, [facility] [place] [facility] [address] [id number] [place] [address]- 1610 May, [facility] [place] [facility] [address] [id number] [place] [address]- 5914 May, [facility] [place] [facility] [address] [id number] [place] [address] May, [facility] [place] [facility] [address] [id number] [place] [address]- 9039 May, [facility] [address] [id number] [place] [address]- 3365 May, [facility] [address] [id number] [place] [address]- 0408 May, [facility] [address] [place] [id number] May, [facility] [address] [id number] [place] [address] 4009 May, [facility] [place] [facility] [address] [id number] [place] [address]- 2945 May, [facility] [place] [facility] [address] [id number] [place] [address]- 6927 May, [facility] [place] [facility] [address] [id number] [place] [address]- 8748 Apr, [facility] [place] [facility] [address] [id number] [place] [address]- 5946 Apr, [facility] [place] [facility] [address] [id number] [place] [address]- 0280 Apr, [facility] [place] [facility] [address] [id number], [place] [address]- 0720 Apr, [facility] [place] [facility] [address] [id number] [place] [address]- 2234 Apr, [facility] [place] [facility] [address] [id number] [place] [address] Apr, [facility] [place] [facility] [address] [id number] [place] [address]- 9860 Mar, [facility] [place] [facility] [address] [id number] [place] [address]- 9585 Mar, [facility] [place] [facility] [address] [id number] [place] [address]- 1282 Mar, [facility] [place] [facility] [address] [id number] [place] [address]- 0458 Mar, [facility] [place] [facility] [address] [id number] [place] [address]- 3803 Mar, [facility] [place] [facility] [address] [id number] [place] [address]- 7097 Mar, [facility] [place] [facility] [address] [id number] [place] [address]- 7315 24 Feb, 2014 [facility] [place] [facility] [address] [id number] [place] [address]- 8009 24 Feb, 2014 [facility] [place] [facility] [address] [id number], [place] [address]- 8[address] 23 Feb, 2014 [facility] [place] [facility] [address] [id number], [place] [address]- 4[address] 23 Feb, 2014 [facility] [place] [facility] [address] [id number] [place] [address]- 3000 19 Feb, 2014 [facility] [place] [facility] [address] [id number] [place] [address]- 0829 19 Feb, 2014 [facility] [place] [facility] [address] [id number] [place] [address]- 1636 19 Feb, 2014 [facility] [place] [facility] [address] [id number] [place] [address]- 8272 Feb, [facility] [place] [facility] [address] [id number] [place] [address]- 9200 Feb, [facility] [place] [facility] [address] [id number] [place] [address]- 9693 Feb, [facility] [address] [facility] [id number] Feb, [facility] [place] [facility] [address] [id number] [place] [address]- 9224 Feb, [facility] [place] [facility] [address] [id number] [place] [address]- 7796 Jan, [facility] [place] [facility] [address] [id number] [place] [address]- 6196 Jan, [facility] [place] [facility] [address] [id number] [place] [address]- 8344 Dec, [facility] [place] [facility] [address] [id number] [place] [address]- 6004 Dec, [facility] [place] [facility] [address] [id number] [place] [address] 3150 Dec, [facility] [place] [facility] [address] [id number] [place] [address]- 3931 Dec, [facility] [place] [facility] [address] [id number] [place] [address]- 9099 Dec, [facility] [place] [facility] [address] [id number] [place] [address]- 7527 Dec, [facility] [place] [facility] [address] [id number] [place] [address]- 0616 Dec, [facility] [place] [facility] [address] [id number] [place] [address]- 4771 Dec, [facility] [place] [facility] [address] [id number] [place] [address]- 8109 Dec, [facility] [place] [facility] [address] [id number] [place] [address]- 5503 Dec, [facility] [place] [facility] [address] [id number] [place] [address]- 3720 Nov, [facility] [place] [facility] [address] [id number] [place] [address]- 6293 Nov, [facility] [place] [facility] [address] [id number] [place] [address]- 7854 Nov, [facility] [place] [facility] [address] [id number] [place] [address]- 8046 Nov, [facility] [place] [facility] [address] [id number] [place] [address]- 7196 Nov, [facility] [place] [facility] [address] [id number] [place] [address]- 3060 Nov, [facility] [place] [facility] [address] [id number] [place] [address]- 0305 Nov, [facility] [place] [facility] [address] [id number] [place] [address]- 8964 Nov, [facility] [place] [facility] [address] [id number] [place] [address]- 2569 Nov, [facility] [place] [facility] [address] [id number] [place] [address]- 6386 Nov, [facility] [place] [facility] [address] [id number] [place] [address]- 0396 Nov, [facility] [place] [facility] [address] [id number] [place] [address]- 9928 Nov, [facility] [place] [facility] [address] [id number] [place] [address]- 9374 Nov, [facility] [place] [facility] [address] [id number] [place] [address]- 8314 Nov, [facility] [place] [facility] [address] [id number] [place] [address]- 6166 October, [facility] [place] [facility] [address] [id number] [place] [address]- 5403 October, [facility] [place] [facility] [address] [id number] [place] [address]- 3620 October, [facility] [place] [facility] [address] [id number] [place] [address]- 8044 October, [facility] [place] [facility] [address] [id number] [place] [address]- 6873 October, [facility] [place] [facility] [address] [id number] [place] [address]- 3307 October, [facility] [place] [facility] [address] [id number] [place] [address]- 1566 October, [facility] [place] [facility] [address] [id number] [place] [address]- 1261 October, [facility] [place] [facility] [address] [id number] [place] [address]- 6596 October, [facility] [place] [facility] [address] [id number] [place] [address]- 3407 October, [facility] [place] [facility] [address] [id number] [place] [address]- 1983 Sep, [facility] [place] [facility] [address] [id number] [place] [address]- 0371 Sep, [facility] [place] [facility] [address] [id number] [place] [address]- 0967 Sep, [facility] [place] [facility] [address] [id number] [place] [address]- 9984 Sep, [facility] [place] [facility] [address] [id number] [place] [address]- 9590 Sep, [facility] [place] [facility] [address] [id number] [place] [address]- 7921 Sep, [facility] [place] [facility] [address] [id number] [place] [address]- 8837 Sep, [facility] [place] [facility] [address] [id number] [place] [address]- 9290 Sep, [facility] [place] [facility] [address] [id number] [place] Sep, [facility] [place] [facility] [address] [id number] [place] [address]- 6569 Sep, [facility] [place] [facility] [address] [id number] [place] [address]- 2437 Aug, [facility] [place] [facility] [address] [id number] [place] [address]- 0744 Aug, [facility] [place] [facility] [address] [id number] [place] [address]- 7674 Aug, [facility] [place] [facility] [address] [id number] [place] [address]- 2008 Aug, [facility] [place] [facility] [address] [id number] [place] [address]- 2624 Aug, [facility] [place] [facility] [address] [id number] [place] [address]- 6936 Aug, [facility] [place] [facility] [address] [facility] [id number] [place] [address]- 0577 Aug, [facility] [place] [facility] [address] [id number] [place] [address]- 7082 Aug, [facility] [place] [facility] [address] [facility] [id number] [place] [address]- 2542 Aug, [facility] [place] [facility] [address] [id number] [place] [address]- 9351 Jul, [facility] [place] [facility] [address] [id number] [place] [address]- 9607 Jul, [facility] [place] [facility] [address] [id number] [place] [address]- 8688 Jul, [facility] [place] [facility] [address] [id number] [place] [address]- 7826 Jul, [facility] [place] [facility] [address] [id number] [place] [address]- 6146 Jul, [facility] [place] [facility] [address] [id number] [place] [address]- 8216 Jul, [facility] [place] [facility] [address] [id number] [place] [address]- 6346 Jul, [facility] [place] [facility] [address] [id number] [place] [address]- 1706 Jul, [facility] [place] [facility] [address] [id number] [place] [address]- 0826 Jul, [facility] [place] [facility] [address] [id number] [place] [address]- 3365 Jul, [facility] [place] [facility] [address] [id number] [place] [address]- 1172 Jul, [facility] [place] [facility] [address] [id number] [place] [address]- 1000 Jul, [facility] [place] [facility] [address] [facility] [id number] [place] [address]- 0100 Jul, [facility] [place] [facility] [address] [id number] [place] [address]- 6519 Jul, [facility] [place] [facility] [address] [id number] [place] [address]- 5374 Jul, [facility] [place] [facility] [address] [id number] [place] [address]- 2593 Jul, [facility] [place] [facility] [address] [id number] [place] [address]- 0318 Jun, [facility] [place] [facility] [address] [facility] [id number] [place] [address]- 3591 Jun, [facility] [place] [facility] [address] [id number] [place] [address]- 9512 16 Jun, 2013 [facility] [place] [facility] [address] [id number] [place] [address]- 2033 16 Jun, 2013 [facility] [place] [facility] [address] [id number] [place] [address]- 6961 Jun, [facility] [place] [facility] [address] [id number] [place] [address]- 3045 Jun, [facility] [place] [facility] [address] [id number] [place] [address]- 9210 May, [facility] [place] [facility] [address] [id number] [place] [address]- 1647 May, [facility] [place] [facility] [address] [id number] [place] [address]- 7595 May, [facility] [place] [facility] [address] [id number] [place] [address]- 1527 May, [facility] [place] [facility] [address] [id number] [place] [address]- 4931 Apr, [facility] [place] [facility] [address] [id number] [place] [address]- 2084 Apr, [facility] [place] [facility] [address] [id number] [place] [address]- 4099 Apr, [facility] [place] [facility] [address] [id number] [place] [address]- 7820 Apr, [facility] [place] [facility] [address] [id number] [place] [address]- 7175 Apr, [facility] [place] [facility] [address] [id number] [place] [address]- 3322 Apr, [facility] [place] [facility] [address] [id number] [place] [address]- 4526 Apr, [facility] [place] [facility] [address] [id number] [place] [address]- 1618 Apr, [facility] [place] [facility] [address] [id number] [place] [address]- 9416 18 Apr, 2013 [facility] [place] [facility] [address] [id number] [place] [address]- 2697 18 Apr, 2013 [facility] [place] [facility] [address] [facility] [id number] [place] [address]- 5821 Apr, [facility] [place] [facility] [address] [id number] [place] [address]- 1871 Apr, [facility] [place] [facility] [address] [id number] [place] [address]- 3810 28 Mar, 2013 [facility] [place] [facility] [address] [id number] [place] [address]- 8432 28 Mar, 2013 [facility] [place] [facility] [address] [id number] [place] [address]- 0473 16 Mar, 2013 [facility] [place] [facility] [address] [id number], [place] [address]- 0531 16 Mar, 2013 [facility] [place] [facility] [address] [id number], [place] [address]- 7176 15 Mar, 2013 [facility] [place] [facility] [address] [id number], [place] [address]- 6389 15 Mar, 2013 [facility] [place] [facility] [address] [id number], [place] [address]- 3689 27 Sep, 2012 [facility] [place] [facility] [address] [id number], [place] [address]- 2547 25 Sep, 2012 [facility] [place] [facility] [address] [id number], [place] [address] 2546 25 Sep, 2012 [facility] [place] [facility] [address] [id number], [place] [address]- 0106 23 Sep, 2012 [facility] [place] [facility] [address] [id number], [place] [address]- 2546 17 Sep, 2012 [facility] [place] [facility] [address] [id number] [place] [address]- 4218 10 Feb, 2013 [facility] [place] [facility] [address] [id number] [place] [address]- 2476 Feb, [facility] [place] [facility] [address] [id number] [place] [address]- 3866 Jan, [facility] [place] [facility] [address] [id number] [place] [address]- 4079 Jan, [facility] [place] [facility] [address] [id number] [place] [address]- 1906 Jan, [facility] [place] [facility] [address] [id number] [place] [address]- 8734 Jan, [facility] [place] [facility] [address] [id number] [place] [address]- 4213 Jan, [facility] [place] [facility] [address] [id number] [place] [address]- 8951 Jan, [facility] [place] [facility] [address] [id number] [place] [address]- 7582 Jan, [facility] [place] [facility] [address] [id number] [place] [address]- 8138 Dec, [facility] [place] [facility] [address] [id number] [place] [address]- 8434 Dec, [facility] [place] [facility] [address] [id number] [place] [address]- 2320 Dec, [facility] [place] [facility] [address] [id number] [place] [address]- 9664 Dec, [facility] [place] [facility] [address] [id number] [place] [address]- 2337 Dec, [facility] [place] [facility] [address] [id number] [place] [address]- 1014 Dec, [facility] [place] [facility] [address] [id number] [place] [address]- 7387 Nov, [facility] [place] [facility] [address] [id number] [place] [address]- 8911 Nov, [facility] [address] [id number] [place] [address]- 0138 Nov, [facility] [address] [id number] [place] [address]- 9093 Nov, [facility] [address] [id number] [place] [address]- 8714 October, [facility] [address] [id number] [place] [address]- 6247 October, [facility] [address] [id number] [place] [address]- 9867 October, [facility] [address] [id number] [place] [address]- 5722 October, [facility] [address] [id number] [place] [address]- 4417 Sep, [facility] [address] [id number] [place] [address]- 1674 Sep, [facility] [address] [id number] [place] [address]- 2576 Sep, [facility] [address] [id number] [place] [address]- 6762 Sep, [facility] [address] [id number] [place] [address]- 4028 Sep, [facility] [address] [id number] [place] [address]- 3347 Sep, [facility] [place] [facility] [address] [id number] [place] [address]- 1279 Sep, [facility] [address] [id number] [place] 1840 Sep, [facility] [address] [id number] [place] [address]- 4552 13 Aug, 2012 [facility] [address] [id number] [place] [address] 13 Aug, 2012 [facility] [address] [id number] [place] [address] 05 Aug, 2012 [facility] [address] [id number] [place] [address] 18 Jul, 2012 [facility] [address] [id number] [place] [address] 08 Jul, 2012 [facility] [address] [id number] [place] [address] 07 Jul, 2012 [facility] [address] [id number] [place] [address] 06 Jul, 2012 [facility] [address] [id number] [place] [address] 05 Jul, 2012 [facility] [address] [id number] [place] [address] Jun, [facility] [address] [id number] [place] [address] Jun, [facility] [address] [facility] [id number] [place] [address] Jun, [facility] [address] [id number] [place] [address] May, [facility] [address] [id number] [place] [address] May, [facility] [place] [facility] [address] [id number] [place] [address] May, [facility] [place] [facility] [address] [id number] [place] [address] May, [facility] [address] [facility] [id number] [place] [address] May, [facility] [place] [facility] [address] [id number] [place] [address]673 May, [facility] [place] [facility] [address] [id number] [place] [address] 41[address] May, [facility] [place] [facility] [address] [id number] [place] [address] Apr, [facility] [place] [facility] [address] [id number] [place] [address] Apr, [facility] [place] [facility] [address] [id number] [place] [address]678 Apr, [facility] [place] [facility] [address] [id number] [place] [address] Apr, [facility] [place] [facility] [address] [id number] [place] [address] 8464 Apr, [facility] [place] [facility] [address] [id number] [place] [address] 1053 Apr, [facility] [place] [facility] [address] [id number] [place] [address]278 Apr, [facility] [place] [facility] [address] [id number] [place] [address] Apr, [facility] [place] [facility] [address] [id number] [place] [address] 227[address] Apr, [facility] [place] [facility] [address] [id number] [place] [address] Apr, [facility] [place] [facility] [address] [id number] [place] [address] 285[address] Apr, [facility] [place] [facility] [address] [id number] [place] [address] Mar, [facility] [place] [facility] [address] [id number] [place] [address] Mar, [facility] [place] [facility] [address] [id number] [place] [address] 7626 Mar, [facility] [place] [facility] [address] [id number] [place] [address] Mar, [facility] [place] [facility] [address] [id number] [place] [address] 6[address] Mar, [facility] [place] [facility] [address] [id number] [place] [address] Mar, [facility] [place] [facility] [address] [id number] [place] [address] 1271 Mar, [facility] [place] [facility] [address] [id number] [place] [address] 4799 19 Mar, 2012 [facility] [place] [facility] [address] [id number] [place] [address] 6364 16 Mar, 2012 [facility] [place] [facility] [address] [id number] [place] [address] 3[address] 16 Mar, 2012 [facility] [place] [facility] [address] [id number], [place] [address] 04 Mar, 2012 [facility] [place] [facility] [address] [id number] [place] [address] 28 Sep, 2011 [facility] [place] [facility] [address] [id number] [place] [address] 27 Sep, 2011 [facility] [place] [facility] [address] [id number], [place] [address] 27 Sep, 2011 [facility] [place] [facility] [address] [id number], [place] [address] 26 Sep, 2011 [facility] [place] [facility] [address] [id number] [place] [address]- [address] 24 Sep, 2011 [facility] [place] [facility] [address] [id number], [place] [address] 19 Sep, 2011 [facility] [place] [facility] [address] [id number], [place] [address] 18 Sep, 2011 [facility] [place] [facility] [address] [id number] [place] [address] 86[address] Feb, [facility] [address] [id number] [place] [address] 1816 Feb, [facility] [place] [facility] [address] [id number] [place] [address] Jan, [facility] [address] [id number] [place] [address] 57[address] Jan, [facility] [place] [facility] [address] [id number] [place] [address]656 Jan, [facility] [place] [facility] [address] [id number] [place] [address] 6[address] Jan, [facility] [place] [facility] [address] [id number] [place] [address]645 Dec, [facility] [address] [id number] [place] [address] Dec, [facility] [address] [id number] [place] [address] 9883 Dec, [facility] [place] [facility] [address] [id number] [place] [address] 73[address] Dec, [facility] [address] [id number] [place] [address] Dec, [facility] [place] [facility] [address] [id number] [place] [address] 2546 Dec, [facility] [place] [facility] [address] [id number] [place] [address] 0987 Dec, [facility] [place] [facility] [address] [id number] [place] [address]- 3889 Dec, [facility] [place] [facility] [address] [id number] [place] [address]206 Dec, [facility] [place] [facility] [address] [id number] [place] [address] 9945 Dec, [facility] [place] [facility] [address] [id number] [place] [address] Dec, [facility] [place] [facility] [address] [id number] [place] [address]- 0416 Dec, [facility] [place] [facility] [address] [id number] [place] [address]- 67[address] Dec, [facility] [place] [facility] [address] [id number] [place] [address]- 0419 Dec, [facility] [place] [facility] [address] [id number] [place] [address]- 1683 Nov, [facility] [place] [facility] [address] [id number] [place] [address]- 1538 Nov, [facility] [place] [facility] [address] [id number] [place] [address]- 8880 Nov, [facility] [place] [facility] [address] [id number] [place] [address] Nov, [facility] [place] [facility] [address] [id number] [place] [address] Nov, [facility] [place] [facility] [address] [id number] [place] [address] Nov, [facility] [place] [facility] [address] [id number] [place] [address] October, [facility] [place] [facility] [address] [id number] [place] [address] October, [facility] [place] [facility] [address] [id number] [place] [address] October, [facility] [place] [facility] [address] [id number] [place] [address] October, [facility] [place] [facility] [address] [id number] [place] [address] Sep, [facility] [place] [facility] [address] [id number] [place] [address] 17 Sep, 2011 [facility] [address] [id number] [place] [address] 13 Sep, 2011 [facility] [address] [id number] [place] [address] 09 Sep, 2011 [facility] [address] [facility] [id number] [place] [address] Sep, [facility] [address] [id number] [place] [address] Aug, [facility] [address] [id number] [place] [address] Aug, [facility] [address] [facility] [id number] [place] [address] Aug, [facility] [address] [facility] [id number] [place] [address] Aug, [facility] [address] [facility] [id number] [place] [address] Aug, [facility] [address] [facility] [id number] [place] [address] Aug, [facility] [address] [facility] [id number] [place] [address] Aug, [facility] [address] [facility] [id number] [place] [address] 16 Jul, 2011 [facility] [address] [facility] [id number] [place] [address] 16 Jul, 2011 [facility] [address] [id number] [place] [address] 15 Jul, 2011 [facility] [address] [facility] [id number] [place] [address] 15 Jul, 2011 [facility] [address] [facility] [id number], [place] [address] 24 Jun, 2011 [facility] [address] [id number] Jun, [facility] [address] [id number] [place] [address] Jun, [facility] [address] [id number] [place] [address] Jun, [facility] [address] [id number] [place] [address] Jun, [facility] [address] [id number] [place] [address] Jun, [facility] [address] [id number] [place] [address] Jun, [facility] [address] [id number] [place] [address] Jun, [facility] [address] [facility] [id number] [place] [address] May, [facility] [address] [id number] [place] [address] May, [facility] [address] [id number] [place] [address] May, [facility] [address] [facility] [id number] [place] [address] May, [facility] [address] [id number] [place] [address] May, [facility] [address] [id number] [place] [address] May, [facility] [address] [id number] [place] [address] May, [facility] [address] [id number] [place] [address] Apr, [facility] [address] [id number] [place] [address] 17 Apr, 2011 [facility] [place] [facility] [address] [id number] [place] [address] Apr, [facility] [place] [facility] [address] [id number] [place] [address] 27 Mar, 2011 [facility] [place] [facility] [address] [id number] [place] [address] 20 Mar, 2011 [facility] [place] [facility] [address] [id number] [place] [address] 14 Mar, 2011 [facility] [place] [facility] [address] [id number] [place] [address] 11 Mar, 2011 [facility] [place] [facility] [address] [id number] [place] [address] 10 Mar, 2011 [facility] [place] [facility] [address] [id number] [place] [address] 10 Mar, 2011 [facility] [place] [facility] [address] [id number] [place] [address] Mar, [facility] [place] [facility] [address] [id number] [place] [address] Jan, [facility] [place] [facility] [address] [id number] [place] [address] May, [facility] [place] [facility] [address] [id number] [place] [address] May, [facility] [place] [facility] [address] [id number], [place] [address] 13 May, 2010 [facility] [place] [facility] [address] [id number] [place] [address] 13 May, 2010 [facility] [place] [facility] [address] [id number] [place] [address] 10 May, 2010 [facility] [place] [facility] [address] [id number] [place] [address] 06 May, 2010 [facility] [place] [facility] [address] [id number], [place] [address] Apr, [facility] [place] [facility] [address] [id number] [place] [address] Apr, [facility] [place] [facility] [address] [id number], [place] [address] Apr, [facility] [place] [facility] [address] [id number] [place] [address] Apr, [facility] [place] [facility] [address] [id number], [place] [address] 15 Apr, 2010 [facility] [place] [facility] [address] [id number] [place] [address] Apr, [facility] [place] [facility] [address] [id number] [place] [address] Apr, [facility] [place] [facility] [address] [facility] [id number], [place] [address] Apr, [facility] [place] [facility] [address] [id number] [place] [address] Apr, [facility] [place] [facility] [address] [id number], [place] [address] Apr, [facility] [place] [facility] [address] [id number] [place] [address] Mar, [facility] [place] [facility] [address] [id number], [place] [address] Mar, [facility] [place] [facility] [address] [id number], [place] [address] Mar, [facility] [place] [facility] [address] [id number], [place] [address] Mar, [facility] [place] [facility] [address] [id number], [place] [address] Mar, [facility] [place] [facility] [address] [id number], [place] [address] Dec, [facility] [place] [facility] [address] [facility] [id number] [place] [address] 10 Nov, 2009 IMMUNIZATIONS No Known Immunizations SOCIAL HISTORY Never Assessed REASON FOR VISIT Controlled Med Refill 11/14/17 PLAN OF CARE VITAL SIGNS MEDICATIONS Medication [...] skin graft, cholecysectomy Hospitalization History [facility] 12/2016 Hospitalization History [facility] 08/2017
[2018-07-05 15:32] LABS: BASOPHILS % (AUTO) 0 % (0-10); EOSINOPHILS # (AUTO) 0.2 10^3/uL (0.0-0.3); EOSINOPHILS % (AUTO) 3 % (0-10); HEMATOCRIT 30 % (35-52); HEMOGLOBIN 10.1 G/DL (11.5-16.0); LYMPHOCYTES # (AUTO) 0.6 X 10^3 (1.0-4.0); LYMPHOCYTES % (AUTO) 13 % (12-44); MEAN CORPUSCULAR HEMOGLOBIN 32 PG (25-34); MEAN CORPUSCULAR HGB CONC 33 G/DL (32-36); MEAN CORPUSCULAR VOLUME 95 FL (80-99); MEAN PLATELET VOLUME 9.8 FL (7.4-10.4); MONOCYTES # (AUTO) 0.5 X 10^3 (0.0-1.0); MONOCYTES % (AUTO) 10 % (0-12); NEUTROPHILS # (AUTO) 3.4 X 10^3 (1.8-7.8); NEUTROPHILS % (AUTO) 73 % (42-75); PLATELET COUNT 219 10^3/uL (130-400); RED BLOOD COUNT 3.17 10^6/uL (4.35-5.85); RED CELL DISTRIBUTION WIDTH 12.9 % (10.0-14.5); WHITE BLOOD COUNT 4.7 10^3/uL (4.3-11.0)
[2018-07-05 15:34] LABS: BILIRUBIN,URINE NEGATIVE (NEGATIVE); CLARITY,URINE VERY CLOUDY; COLOR,URINE YELLOW; GLUCOSE, URINE (UA) NEGATIVE (NEGATIVE); KETONES,URINE NEGATIVE (NEGATIVE); LEUKOCYTE ESTERASE ,URINE 2+ (NEGATIVE); NITRITE,URINE POSITIVE (NEGATIVE); PH,URINE 8 (5-9); PROTEIN,URINE NEGATIVE (NEGATIVE); UROBILINOGEN,URINE NORMAL (NORMAL)
[2018-07-05 15:46] LABS: BACTERIA,URINE LARGE /HPF
[2018-07-05 15:47] LABS: AMORPHOUS SEDIMENT,UR MOD AMOR PHOSPHATE /LPF; TRIPLE PHOSPHATE CRYSTAL,UR LARGE /LPF
--- NOTE | 2018-07-05 15:49 | ED General ---
General Chief Complaint: Abdominal/GI Problems Stated Complaint: CONFUSION Nursing Triage Note: THE PT ARRIVAL BY POV FROM HER NURSING CARE FACILITY. THE PT IS RESPODS TO [facility]. SHE IS VERY SLEEPY. NO INJURY IS REPORTED. SHE RECENTLY STARTED A NEW MEDICATION. Nursing Sepsis Screen: No Definite Risk Source of Information: Patient Exam Limitations: No Limitations History of Present Illness Date Seen by Provider: Jul 05, 2018 Time Seen by Provider: 14:36 Initial Comments This 68-year-old presents to the emergency room from the residential of buying residential transport. She is accompanied by caregiver. She reportedly has had decreased alertness and altered mental status today. She is alert but appears confused. She is normally alert and oriented, conversational and able to ambulate. She reportedly has had increased back pain recently. She was prescribed baclofen yesterday and has taken multiple doses. Her prescribed doses 10 mg 3 times a day. She is also noted to be on multiple other sedating medications including a fentanyl patch, oral narcotics, and gabapentin. She takes phenytoin as well for seizure disorder. She is anticoagulated on warfarin. Caregiver reports patient does have a history of manipulative behaviors but this is not her normal. Allergies and Home Medications Allergies Coded Allergies: Fish Containing Products (Unverified Allergy, Unknown, 09/19/17) FROM UNCODED ALLERGIES Penicillins (Verified Allergy, Unknown, 03/18/06) Sulfa (Sulfonamide Antibiotics) (Verified Allergy, Unknown, 03/18/06) acetaminophen (Verified Allergy, Unknown, 03/18/06) amitriptyline (Verified Allergy, Unknown, 03/18/06) aspirin (Verified Allergy, Unknown, 03/18/06) caramiphen (Verified Allergy, Unknown, 03/18/06) carbamazepine (Verified Allergy, Unknown, 03/18/06) clarithromycin (Verified Allergy, Unknown, 03/18/06) codeine (Verified Allergy, Unknown, 03/18/06) coffee (Coffea arabica) (Unverified Allergy, Unknown, 09/19/17) FROM UNCODED ALLERGIES diazepam (Verified Allergy, Unknown, 03/18/06) diphenhydramine (Verified Allergy, Unknown, 03/18/06) doxycycline (Verified Allergy, Unknown, 03/18/06) egg (Verified Allergy, Unknown, 03/18/06) fish oil (Verified Allergy, Unknown, 03/18/06) flavoxate (Verified Allergy, Unknown, 03/18/06) hydrocodone (Verified Allergy, Unknown, 03/18/06) hydroxyzine (Verified Allergy, Unknown, 03/18/06) hyoscyamine (Verified Allergy, Unknown, 03/18/06) imipramine (Verified Allergy, Unknown, 03/18/06) levofloxacin (Verified Allergy, Unknown, 03/18/06) liver extract (Verified Allergy, Unknown, 03/18/06) lorazepam (Verified Allergy, Unknown, 03/18/06) milk (Verified Allergy, Unknown, 03/18/06) nitrofurantoin (Verified Allergy, Unknown, 03/18/06) oxybutynin (Verified Allergy, Unknown, 03/18/06) pentazocine (Verified Allergy, Unknown, 03/18/06) phenazopyridine (Verified Allergy, Unknown, 03/18/06) phenylpropanolamine (Verified Allergy, Unknown, 03/18/06) procaine (Verified Allergy, Unknown, 03/18/06) promethazine (Verified Allergy, Unknown, 03/18/06) propoxyphene (Verified Allergy, Unknown, 03/18/06) pseudoephedrine (Verified Allergy, Unknown, 03/18/06) spinach (Unverified Allergy, Unknown, 09/19/17) FROM UNCODED ALLERGIES tetracycline (Verified Allergy, Unknown, 03/18/06) tramadol (Verified Allergy, Unknown, 03/18/06) zinc acetate (Verified Allergy, Unknown, 03/18/06) Uncoded Allergies: ANITHISTAMINES (Allergy, Unknown, 03/18/06) Home Medications Acetaminophen 325 Mg Tablet, 650 MG PO Q4H PRN for HEADACHE, (Reported) Bisacodyl 10 Mg Supp.rect, 10 MG RC DAILY PRN for CONSTIPATION-4TH LINE, ( Reported) Butalb/Acetaminophen/Caffeine 1 Each Capsule, 1 CAP PO Q6H PRN for HEADACHE, ( Reported) Carboxymethylcellulose Sodium 15 Ml Drops, 1 DROP OU QID, (Reported) Cephalexin 500 Mg Capsule, 500 MG PO BID Prescribed by: JIMMY SPAULDING on 02/05/18 1158 Cholecalciferol 5,000 Unit Capsule, 5,000 UNIT PO UD, (Reported) TAKE 1 CAPSULE TWO TIMES DAILY EVERY 7 DAYS Ciclopirox 6.6 Ml Solution, TOP HS, (Reported) APPLY TO FINGERNAILS Citalopram Hydrobromide 10 Mg Tablet, 10 MG PO DAILY, (Reported) Clobetasol Propionate 50 Ml Solution, TOP UD, (Reported) APPLY TO SCALP TWO TIMES A DAY EVERY MON, E, WED, JAVON, FRI Clorazepate Dipotassium 3.75 Mg Tablet, 3.75 MG PO BID, (Reported) Cyclosporine 1 Each Droperette, 1 DROP OU BID, (Reported) Famotidine 20 Mg Tablet, 20 MG PO HS, (Reported) Fentanyl 1 Each Patch.td72, 62.5 MCG TD Q72H Prescribed by: JIMMY SPAULDING on 02/05/18 1158 Fexofenadine HCl 180 Mg Tablet, 180 MG PO DAILY, (Reported) Fluticasone Propionate 16 Gm [place].susp, 2 SPRAYS NS DAILY, (Reported) Gabapentin 400 Mg Capsule, 400 MG PO HS, (Reported) Guaifenesin 100 Mg/5 Ml Liquid, 10 ML PO Q6H PRN for COUGH, (Reported) Hydrocortisone 28.35 Gm Cream..g., TP DAILY PRN for DRY SKIN, (Reported) 2.5% Ibuprofen 200 Mg Tablet, 400 MG PO Q8H PRN for HEADACHE, (Reported) Iron Polysaccharide Complex 150 Mg Capsule, 150 MG PO DAILY, (Reported) Ketoconazole 120 Ml Shampoo, TOP MoTh, (Reported) Lamotrigine 100 Mg Tablet, 100 MG PO BID, (Reported) Melatonin 5 Mg Capsule, 5 MG PO HS, (Reported) Metoprolol Tartrate 50 Mg Tablet, 50 MG PO BID, (Reported) HOLD IF PULSE <50 CALL PHYSICIAN Mineral Oil/Petrolatum,White 3.5 Gm Oint...g., OU HS, (Reported) Nitroglycerin 1 Each Patch.td24, 1 PATCH TD DAILY, (Reported) Phenytoin Sodium Extended 100 Mg Capsule, 100 MG PO BID, (Reported) Polyethylene Glycol 3350 17 Gm Powd.pack, 17 GM PO BID, (Reported) Rosuvastatin Calcium 10 Mg Tablet, 10 MG PO HS, (Reported) Sodium Bicarbonate 650 Mg Tablet, 650 MG PO 1600, (Reported) Topiramate 100 Mg Tablet, 100 MG PO BID, (Reported) Triamcinolone Acet 15 Gm Cr, TOP BID, (Reported) Triamcinolone Acet 15 Gm Cr, TP BID PRN for ITCHING, (Reported) Warfarin Sodium 1 Mg Tablet, 1 MG PO Ell[place], (Reported) Warfarin Sodium 1 Mg Tablet, 1.5 MG PO MoTuWeThFrSa, (Reported) Patient Home Medication List Home Medication List Reviewed: Yes Review of Systems Review of Systems Constitutional: no symptoms reported EENTM: no symptoms reported Respiratory: no symptoms reported Cardiovascular: no symptoms reported Gastrointestinal: no symptoms reported Genitourinary: other (urostomy bag) : No Musculoskeletal: see HPI Skin: no symptoms reported Psychiatric/Neurological: See HPI Hematologic/Lymphatic: No Symptoms Reported Immunological/Allergic: no symptoms reported Past Qdwgbos-Bodeci-Errouq Hx Past Med/Social Hx: Reviewed and Corrections made Patient Social History Recent Foreign Travel: No Contact w/Someone Who Travel: No Recent Infectious Disease Expo: No Recent Hopitalizations: No Immunizations Up To Date Tetanus Booster (TDap): More than 5yrs Date of Pneumonia Vaccine: May 02, 2017 Date of Influenza Vaccine: Apr 02, 2017 Seasonal Allergies Seasonal Allergies: Yes Past Medical History Surgeries: Yes (ABD, REMOVAL OF BLOOD CLOT ON BRAIN, SINUS, D&C, HERNIA, PORTS , UROSTOMY) Abdominal, Appendectomy, Bladder Surgery, Gallbladder, Hysterectomy, Orthopedic , Urinary Diversion Respiratory: No Pneumonia Cardiac: Yes (MITRAL VALVE, Scaring on Aortic Valve Secondary to Rhuematic Fever, HF) Coronary Artery Disease, Deep Vein Thrombosis, High Cholesterol, Hypertension, Rheumatic Fever, Valvular Heart Disease Neurological: Yes Seizure Disorder, Stroke : No Reproductive Disorders: No Female Reproductive Disorders: Denies Sexually Transmitted Disease: No HIV/AIDS: No Genitourinary: Yes (bladder cancer s/p resection, urostomy) Bladder Infection Gastrointestinal: Yes Gastroesophageal Reflux, Chronic Constipation Musculoskeletal: Yes (WEAKNESS LEFT SIDE DUE TO STROKE/OA/OSTEOPOROSIS, R LEG FX,R KNEE SURGERY) Osteoporosis, Arthritis, Fractures Endocrine: No Cataract Loss of Vision: Bilateral Hearing Impairment: Denies Cancer: Yes Bladder Psychosocial: Yes Anxiety Integumentary: No 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 0.6oz. 49.958248sp; 25.6 BMI Method:Estimated General Appearance: No Apparent Distress, WD/WN HEENT: PERRL/EOMI, Normal ENT Inspection Neck: Normal Inspection Respiratory: Lungs Clear, Normal Breath Sounds, No Accessory Muscle Use, No Respiratory Distress Cardiovascular: Regular Rate, Rhythm, No Edema, No Murmur Gastrointestinal: Normal Bowel Sounds, Non Tender, Soft Extremity: Normal Inspection, No Pedal Edema Neurologic/Psychiatric: Alert, Other (generalized weakness, disoriented, does respond to questions and follow some instructions, no apparent focal deficits) Skin: Normal Color, Warm/Dry Progress/Results/Core Measures Suspected Sepsis Recent Fever Within 48 Hours: No Infection Criteria Present: None New/Unexplained Altered Menta: No Sepsis Screen: No Definite Risk SIRS Temperature:98.4 Pulse: 45 Respiratory Rate: 14 Laboratory Tests 07/05/18 15:25: White Blood Count 4.7 Blood Pressure 176 /67 Mean: 103 Laboratory Tests 07/05/18 15:25: Creatinine 0.90, Platelet Count 219, Total Bilirubin 0.3 07/05/18 15:35: INR Comment 1.9H Results/Orders Lab Results Laboratory Tests Test 07/05/18 15:25 07/05/18 15:35 Range/Units White Blood Count 4.7 4.3-11.0 10^3/uL Red Blood Count 3.17 L 4.35-5.85 10^6/uL Hemoglobin 10.1 L 11.5-16.0 G/DL Hematocrit 30 L 35-52 % Mean Corpuscular Volume 95 80-99 FL Mean Corpuscular Hemoglobin 32 25-34 PG Mean Corpuscular Hemoglobin Concent 33 32-36 G/DL Red Cell Distribution Width 12.9 10.0-14.5 % Platelet Count 219 130-400 10^3/uL Mean Platelet Volume 9.8 7.4-10.4 FL Neutrophils (%) (Auto) 73 42-75 % Lymphocytes (%) (Auto) 13 12-44 % Monocytes (%) (Auto) 10 0-12 % Eosinophils (%) (Auto) 3 0-10 % Basophils (%) (Auto) 0 0-10 % Neutrophils # (Auto) 3.4 1.8-7.8 X 10^3 Lymphocytes # (Auto) 0.6 L 1.0-4.0 X 10^3 Monocytes # (Auto) 0.5 0.0-1.0 X 10^3 Eosinophils # (Auto) 0.2 0.0-0.3 10^3/uL Basophils # (Auto) 0.0 0.0-0.1 10^3/uL Urine Color YELLOW Urine Clarity VERY CLOUDY H Urine pH 8 5-9 Urine Specific [place] 1.010 L 1.016-1.022 Urine Protein NEGATIVE NEGATIVE Urine Glucose (UA) NEGATIVE NEGATIVE Urine Ketones NEGATIVE NEGATIVE Urine Nitrite POSITIVE H NEGATIVE Urine Bilirubin NEGATIVE NEGATIVE Urine Urobilinogen NORMAL NORMAL MG/DL Urine Leukocyte Esterase 2+ H NEGATIVE Urine RBC (Auto) 2+ H NEGATIVE Urine RBC NONE /HPF Urine WBC 2-5 /HPF Urine Squamous Epithelial Cells NONE /HPF Urine Crystals PRESENT H /LPF Urine Triple Phosphate Crystals LARGE H /LPF Urine Amorphous Sediment MOD TOMMY PHOSPHATE H /LPF Urine Bacteria LARGE H /HPF Urine Casts NONE /LPF Urine Mucus NEGATIVE /LPF Urine Culture Indicated YES Sodium Level 132 L 135-145 MMOL/L Potassium Level 4.1 3.6-5.0 MMOL/L Chloride Level 101 98-107 MMOL/L Carbon Dioxide Level 20 L 21-32 MMOL/L Anion Gap 11 5-14 MMOL/L Blood Urea Nitrogen 14 7-18 MG/DL Creatinine 0.90 0.60-1.30 MG/DL Estimat Glomerular Filtration Rate > 60 BUN/Creatinine Ratio 16 Glucose Level 99 70-105 MG/DL Calcium Level 9.1 8.5-10.1 MG/DL Corrected Calcium 9.2 8.5-10.1 MG/DL Magnesium Level 1.9 1.8-2.4 MG/DL Total Bilirubin 0.3 0.1-1.0 MG/DL Aspartate Amino Transf (AST/SGOT) 14 5-34 U/L Alanine Aminotransferase (ALT/SGPT) 8 0-55 U/L Alkaline Phosphatase 114 40-136 U/L Total Protein 6.7 6.4-8.2 GM/DL Albumin 3.9 3.2-4.5 GM/DL Prothrombin Time 21.9 H 12.2-14.7 SEC INR Comment 1.9 H 0.8-1.4 Activated Partial Thromboplast Time 56 H 24-35 SEC My Orders Orders - KRISTY WALDRON MD Cbc With Automated Diff (07/05/18 14:36) Comprehensive Metabolic Panel (07/05/18 14:36) Ua Culture If Indicated (07/05/18 14:36) Saline Lock/Iv-Start (07/05/18 14:36) Magnesium (07/05/18 15:05) Protime With Inr (07/05/18 15:05) Partial Thromboplastin Time (07/05/18 15:05) Dilantin (Phenytoin) (07/05/18 15:05) Ct Head Wo (07/05/18 15:05) Urine Culture (07/05/18 15:25) Saline Lock/Iv-Start (07/05/18 16:12) Ns Iv 1000 Ml (Sodium Chloride 0.9%) (07/05/18 16:12) Ceftriaxone For Iv Use (Rocephin For I (07/05/18 16:30) Medications Given in ED Current Medications Medications Dose Ordered Sig/Day Route Start Time Stop Time Status Last Admin Dose Admin Ceftriaxone Sodium 1000 mg/ Sodium Chloride 50 ml @ 100 mls/hr ONCE ONCE IV 07/05/18 16:30 07/05/18 16:59 DC 07/05/18 16:30 100 MLS/HR Sodium Chloride 1,000 ml @ 0 mls/hr Q0M ONCE IV 07/05/18 16:12 07/05/18 16:13 DC 07/05/18 16:29 1,000 MLS/HR Vital Signs/I&O 07/05/18 07/05/18 15:29 16:36 Temp 98.4 Pulse 45 44 Resp 14 14 B/P (MAP) 176/67 (103) 114/48 (70) Pulse Ox 99 O2 Flow Rate 99.00 Capillary Refill : Less Than 3 Seconds Blood Pressure Mean: 103 Progress Note : Progress Note Patient was seen and evaluated. Labs were assessed. Urine from the urostomy was obtained for urinalysis. Because patient is on warfarin with altered mental status, CT of the head was pursued as well. CT showed no evidence of acute abnormalities. Labs were relatively unremarkable. There was bacteria and nitrite presents in the urine without significant leukocytosis. Patient had persistent sinus bradycardia in the 40s on telemetry. IV hydration with a 500 mL normal saline bolus was administered. Case was discussed with Dr. Proctor. Patient seems to be having somnolence and altered mental status secondary to starting baclofen. She is also on multiple other sedating medications. Her fentanyl patch was removed for this reason. Dr. Proctor and I agree patient should be admitted for observation. We will hold the majority of her sedating medications. He requested administration of Rocephin for possible urinary tract infection. Diagnostic Imaging Diagonstic Imaging: CT Plain Films/CT/US/NM/MRI: head Comments CT head viewed by me and report reviewed. See report below: NAME: ALEKSEY GARZA MED REC#: [id number] PT STATUS: REG ER : 1950 PHYSICIAN: KRISTY WALDRON MD ADMIT DATE: 07/05/18/ER Draft Date of Exam:07/05/18 CT HEAD WO PROCEDURE: CT head without contrast. TECHNIQUE: Multiple contiguous axial images were obtained through the brain without the use of intravenous contrast. INDICATION: Altered mental status. COMPARISON: 02/04/2018. FINDINGS: No hyperdense hemorrhage or space-occupying mass. No hydrocephalus or midline shift. Global atrophy is unchanged. Prominent perivascular space in the left basal ganglia. Periventricular white matter hypoattenuation is unchanged and compatible with chronic microvascular ischemic disease. Left frontoparietal craniotomy. No acute calvarial abnormality. Paranasal sinuses and mastoid air cells are clear. IMPRESSION: 1. Stable examination without acute intracranial process. Dictated on workstation # [id number] Dict: 07/05/18 1546 Trans: 07/05/18 1553 KB [id number] Interpreted by: NOAH HERMAN MD Departure Communication (Admissions) Time/Spoke to Admitting Phy: 16:20 Dr. Proctor Impression Primary Impression: Altered mental status Qualified Codes: R41.0 - Disorientation, unspecified Additional Impressions: Bradycardia UTI (urinary tract infection) Qualified Codes: N39.0 - Urinary tract infection, site not specified Adverse drug reaction Qualified Codes: T50.905A - Adverse effect of unspecified drugs, medicaments and biological substances, initial encounter Disposition: 09 ADMITTED INPATIENT Condition: Improved Admissions Decision to Admit Reason: Admit from ER (General) Decision to Admit/Date: Jul 05, 2018 Time/Decision to Admit Time: 16:20 Departure-Patient Inst. Referrals: NAHOMY BETH MD (PCP/Family) Primary Care Physician KRISTY WALDRON MD Jul 05, 2018 15:49
[2018-07-05 15:54] LABS: ALANINE AMINOTRANSFERASE 8 U/L (0-55); ALBUMIN 3.9 GM/DL (3.2-4.5); ALKALINE PHOSPHATASE 114 U/L (40-136); BILIRUBIN,TOTAL 0.3 MG/DL (0.1-1.0); BUN/CREATININE RATIO 16; CALCIUM 9.1 MG/DL (8.5-10.1); CARBON DIOXIDE 20 MMOL/L (21-32); CHLORIDE 101 MMOL/L (98-107); GFR ESTIMATED > 60; GLUCOSE 99 MG/DL (70-105); MAGNESIUM 1.9 MG/DL (1.8-2.4); POTASSIUM 4.1 MMOL/L (3.6-5.0); SODIUM 132 MMOL/L (135-145); TOTAL PROTEIN 6.7 GM/DL (6.4-8.2)
--- NOTE | 2018-07-05 15:54 | Diagnostic Imaging Report ---
PROCEDURE: CT head without contrast. TECHNIQUE: Multiple contiguous axial images were obtained through the brain without the use of intravenous contrast. INDICATION: Altered mental status. COMPARISON: 02/04/2018. FINDINGS: No hyperdense hemorrhage or space-occupying mass. No hydrocephalus or midline shift. Global atrophy is unchanged. Prominent perivascular space in the left basal ganglia. Periventricular white matter hypoattenuation is unchanged and compatible with chronic microvascular ischemic disease. Left frontoparietal craniotomy. No acute calvarial abnormality. Paranasal sinuses and mastoid air cells are clear. IMPRESSION: 1. Stable examination without acute intracranial process. Dictated by: Dictated on workstation # [id number]
[2018-07-05 15:57] LABS: INR 1.9 (0.8-1.4); PROTHROMBIN TIME PATIENT 21.9 SEC (12.2-14.7)
--- OUTSIDE RECORDS SUMMARY | 2018-07-05 15:58 | XMS REPORT | Continuity of Care Document ---
Author Author [facility] Address Unknown Phone Unavailable Allergies Active Description Code Type Severity Reaction Onset Reported/Identified Relationship to Patient Clinical Status Yes acetaminophen [id number] Drug Allergy Unknown N/A 03/18/2006 Yes ALL FISH ALL FISH Unknown N/A 03/18/2006 Yes amitriptyline [id number] Drug Allergy Unknown N/A 03/18/2006 Yes ANITHISTAMINES ANITHISTAMINES Unknown N/A 03/18/2006 Yes aspirin [id number] Drug Allergy Unknown N/A 03/18/2006 Yes Caramiphen [id number] Drug Allergy Unknown N/A 03/18/2006 Yes carbamazepine [id number] Drug Allergy Unknown N/A 03/18/2006 Yes clarithromycin [id number] Drug Allergy Unknown N/A 03/18/2006 Yes codeine [id number] Drug Allergy Unknown N/A 03/18/2006 Yes COFFEE COFFEE Unknown N/A 03/18/2006 Yes diazepam [id number] Drug Allergy Unknown N/A 03/18/2006 Yes diphenhydramine [id number] Drug Allergy Unknown N/A 03/18/2006 Yes doxycycline [id number] Drug Allergy Unknown N/A 03/18/2006 Yes egg [id number] Drug Allergy Unknown N/A 03/18/2006 Yes fish oil [id number] Drug Allergy Unknown N/A 03/18/2006 Yes flavoxate [id number] Drug Allergy Unknown N/A 03/18/2006 Yes hydrocodone [id number] Drug Allergy Unknown N/A 03/18/2006 Yes hydroxyzine [id number] Drug Allergy Unknown N/A 03/18/2006 Yes hyoscyamine [id number] Drug Allergy Unknown N/A 03/18/2006 Yes imipramine [id number] Drug Allergy Unknown N/A 03/18/2006 Yes levofloxacin [id number] Drug Allergy Unknown N/A 03/18/2006 Yes Liver Extract [id number] Drug Allergy Unknown N/A 03/18/2006 Yes lorazepam [id number] Drug Allergy Unknown N/A 03/18/2006 Yes milk [id number] Drug Allergy Unknown N/A 03/18/2006 Yes nitrofurantoin [id number] Drug Allergy Unknown N/A 03/18/2006 Yes oxybutynin [id number] Drug Allergy Unknown N/A 03/18/2006 Yes Penicillins [id number] Drug Allergy Unknown N/A 03/18/2006 Yes pentazocine [id number] Drug Allergy Unknown N/A 03/18/2006 Yes phenazopyridine [id number] Drug Allergy Unknown N/A 03/18/2006 Yes phenylpropanolamine [id number] Drug Allergy Unknown N/A 03/18/2006 Yes procaine [id number] Drug Allergy Unknown N/A 03/18/2006 Yes promethazine [id number] Drug Allergy Unknown N/A 03/18/2006 Yes propoxyphene [id number] Drug Allergy Unknown N/A 03/18/2006 Yes pseudoephedrine [id number] Drug Allergy Unknown N/A 03/18/2006 Yes Sulfa (Sulfonamide Antibiotics) [id number] Drug Allergy Unknown N/A 2005 Yes tetracycline [id number] Drug Allergy Unknown N/A 03/18/2006 Yes tramadol [id number] Drug Allergy Unknown N/A 03/18/2006 Yes zinc acetate [id number] Drug Allergy Unknown N/A 03/18/2006 Yes aspirin [...] Drug Allergy 03/02/2011 Yes coffee (Coffea arabica) [id number] Drug Allergy Unknown N/A 09/19/2017 Yes Fish Containing Products [id number] Drug Allergy Unknown N/A 09/19/2017 Yes SPINACH [id number] Drug Allergy Unknown N/A 09/19/2017 Yes aspirin NKMA N/A N /A 04/22/2018 Yes codeine NKMA N/A N /A 04/22/2018 Yes Darvocet A500 NKMA N/A N/A 04/22/2018 Yes penicillin NKMA N/A N/A 04/22/2018 Yes Phosphate Laxative NKMA N/A N/A 04/22/2018 Yes sulfa drugs NKMA N/A N/A 04/22/2018 Yes TEGretol NKMA N/A N/A 04/22/2018 Yes acetaminophen NKMA N/A N/A 04/24/2018 Yes Vicodin NKMA N/A N /A 04/24/2018 Medications Medication Packaging Start Date Stop Date Route Dosage Sig ocular lubricant(Systane ophthalmic solution) 1 drops 04/22/2018 Eye-Both 1 drops, Eye-Both, Daily, 0 Refill(s) phenytoin(phenytoin 100 mg oral capsule, extended release) 1 caps 04/22/2018 Oral 100 mg 100 mg=1 caps, Oral, BID, 0 Refill(s) hydrocortisone topical(hydrocortisone 2.5% topical cream) 1 heena 04/22/2018 Topical 1 heena, Topical, Daily, PRN: Dry Skin, 0 Refill(s) simethicone(Gas-X Extra Strength) 04/22/2018 Chewed 125 mg 125 mg, Chewed, TID, 0 Refill(s) bisacodyl(bisacodyl 10 mg rectal suppository) 1 supp 04/22/2018 Rectal 10 mg 10 mg=1 supp, Rectal, Daily, PRN: as needed for constipation, 0 Refill(s) warfarin(warfarin) 04/22/2018 See Instructions, 1 mg Oral Saturday, 0 Refill(s) ibuprofen(ibuprofen) 04/22/2018 Oral 400 mg 400 mg, Oral, q8hr, PRN: as needed for pain, 0 Refill(s) rosuvastatin(rosuvastatin) 2017 Oral 10 mg 10 mg , Oral, Bedtime (once a day), 0 Refill(s) gabapentin(gabapentin) 2017 Oral 400 mg 400 mg, Oral, Bedtime (once a day), 0 Refill(s) sodium bicarbonate(sodium bicarbonate 650 mg oral tablet) 1 tabs 04/22/2018 Oral 650 mg 650 mg=1 tabs, Oral, Daily, 0 Refill(s) iron polysaccharide(iron polysaccharide (as elemental iron) 50 mg oral capsule) 1 caps 04/22/201804/24 Oral 50 mg 50 mg=1 caps, Oral , Daily, 0 Refill(s) famotidine(famotidine) 2017 Oral 20 mg 20 mg , Oral, Bedtime (once a day), 0 Refill(s) cycloSPORINE ophthalmic(cycloSPORINE 0.05% ophthalmic emulsion) 1 drops 04/22/2018 Eye- Both 1 drops, Eye-Both, q12hr, 0 Refill(s) clorazepate(clorazepate) 2017 Oral 3.75 mg 3.75 mg, Oral, BID, 0 Refill(s) fentaNYL(fentaNYL 75 mcg/hr transdermal film, extended release) 1 patches 04/22/2018 Topical 1 patches, Topical, q72hr, 0 Refill( s) citalopram(citalopram) 2017 Oral 20 mg 20 mg , Oral, Daily, 0 Refill(s) topiramate(Topamax) 04/22/2018 Oral 100 mg 100 mg, Oral, Daily, 0 Refill(s) nitroglycerin(Nitro-Dur 0.2 mg/hr transdermal film, extended release) 1 patches 04/22/2018 TransDermal 1 patches, TransDermal, Daily, 0 Refill(s) fluticasone nasal(Flonase) 2 sprays 04/22/2018 Nasal 2 sprays, Nasal, Daily, 0 Refill(s) polyethylene glycol 3350(MiraLax) 04/22/2018 Oral 17 g 17 g, Oral, Daily, 0 Refill(s) lamoTRIgine(LaMICtal) 04/22/2018 Oral 100 mg 100 mg, Oral, BID, 0800 and 2100, 0 Refill(s) butalbital/acetaminophen/caffeine/codein(Fioricet with Codeine 50 mg-300 mg-40 mg-30 mg oral capsule) 1 caps 04/22 Oral 1 caps, Oral, q6hr, 0 Refill(s) diphenhydrAMINE(Benadryl) 2017 Oral 50 mg 50 mg , Oral, Daily, 0 Refill(s) iron polysaccharide(iron polysaccharide (as elemental iron) 150 mg oral capsule) 1 caps 04/24/2018 Oral 150 mg 150 mg=1 caps, Oral, BID , 0 Refill(s) ocular lubricant(Systane Balance ophthalmic solution) 1 drops 04/24/2018 Eye-Both 1 drops, Eye-Both, TID, Related to allergic rhinitis, 0 Refill(s) warfarin(warfarin 1 mg oral tablet) 04/24/2018 See Instructions, 1.5 tabs Oral , , , Sat Sat., 0 Refill(s) Lactated Ringers Injection(Lactated Ringers Injection 1,000 mL) 1,000 mL 04/24/2018 04/24/2018 IV 10 mL/hr, IV HYDROmorphone(Dilaudid) 0.5 mL 06/201704/24/2018 IV Push 0.5 mg 0.5 mg=0.5 mL, IV Push, q5min, PRN: Pain cycloSPORINE ophthalmic(cycloSPORINE 0.05% ophthalmic emulsion) 1 drops 04/24/2018 04/29/2018 Eye-Both 1 drops, Eye-Both, BID citalopram(citalopram) 1 tabs 04/2404/29/2018 Oral 20 mg 20 mg=1 tabs, Oral, Daily clorazepate(clorazepate) 1 tabs 06/201704/29/2018 Oral 3.75 mg 3.75 mg=1 tabs, Oral, BID fluticasone nasal(Flonase) 2 sprays 04/24/2018 04/29/2018 Nasal 100 mcg 100 mcg=2 sprays, Nasal, Daily famotidine(famotidine) 1 tabs 04/2404/29/2018 Oral 20 mg 20 mg=1 tabs, Oral, Bedtime (once a day) gabapentin(gabapentin) 1 caps 04/2404/29/2018 Oral 400 mg 400 mg=1 caps, Oral, Bedtime (once a day) fentaNYL(fentaNYL 75 mcg/hr transdermal film, extended release) 1 patches 04/24/2018 04/24/2018 Topical 1 patches, Topical, q72hr lamoTRIgine(LaMICtal) 1 tabs 201704/29/2018 Oral 100 mg 100 mg=1 tabs, Oral, BID atorvastatin(atorvastatin) 1 tabs 04/24/2018 04/29/2018 Oral 40 mg 40 mg=1 tabs, Oral, Bedtime (once a day) phenytoin(phenytoin) 1 caps 201704/29/2018 Oral 100 mg 100 mg=1 caps, Oral, BID polyethylene glycol 3350(MiraLax) 1 packets 04/24/2018 04/29/2018 Oral 17 g 17 g=1 packets, Oral, Daily topiramate(Topamax) 1 tabs 201704/29/2018 Oral 100 mg 100 mg=1 tabs, Oral, Daily metoprolol(metoprolol succinate 25 mg oral tablet, extended release ) 1 tabs 04/24/2018 04/24/2018 Oral 25 mg 25 mg=1 tabs, Oral, Daily metoclopramide(Reglan) 2 mL 201704/29/2018 IV Push 10 mg 10 mg=2 mL, IV Push, q6hr, PRN: Nausea Lactated Ringers Injection(Lactated Ringers Injection 1,000 mL) 1,000 mL 04/24/2018 04/26/2018 IV 100 mL/hr, IV docusate(Colace) 1 caps 04/24/2018 04/29/2018 Oral 100 mg 100 mg=1 caps, Oral, BID nalOXone(Narcan) 1 mL 04/24/2018 04/29/2018 IV Push 0.4 mg 0.4 mg=1 mL, IV Push, Daily, PRN: Opiate Reversal ondansetron(Zofran) 2 mL 201704/29/2018 IV Push 4 mg 4 mg=2 mL, IV Push, q6hr, PRN: Nausea HYDROmorphone(HYDROmorphone) 06/201704/26/2018 IV Push 0.5-1 mg, IV Push, q2hr, PRN: Pain - Breakthrough acetaminophen(acetaminophen) 2 tabs 04/24/2018 04/24/2018 Oral 650 mg 650 mg=2 tabs, Oral, q4hr, PRN: Pain Mild (1-3) oxycodone-acetaminophen(Percocet 5/325 oral tablet) 04/24/2018 04/24/2018 Oral 1-2tabs, Oral, q4hr, PRN: Pain Severe (7-10) HYDROmorphone(HYDROmorphone CLINICAL SAFETY MANAGER 30 mg) 30 mL 04/24/2018 04/26/2018 IV 30 mg CLINICAL SAFETY MANAGER, IV, Stop: 06/23/18 17:06:00 INSTITUTIONAL CUSTODIAN metoprolol(metoprolol tartrate 25 mg oral tablet) 1 tabs 04/24/2018 04/29/2018 Oral 25 mg 25 mg=1 tabs, Oral, BID oxyCODONE(oxyCODONE) 2 tabs 201704/29/2018 Oral 10 mg 10 mg=2 tabs, Oral, q4hr, PRN: Pain Severe (7-10) diphenhydrAMINE(diphenhydrAMINE) 1 tabs 04/24/2018 04/29/2018 Oral 25 mg 25 mg=1 tabs, Oral, q6hr, PRN: Pruritus/Itching enoxaparin(Lovenox) 0.4 mL 201704/29/2018 SubCutaneous 40 mg 40 mg=0.4 mL, SubCutaneous, Daily warfarin(warfarin) 1.5 tabs 201704/29/2018 Oral 1.5 mg 1.5 mg=1.5 tabs, Oral, Sat////Sa nitroglycerin(Nitro-Dur 0.2 mg/hr transdermal film, extended release) 1 patches 04/26/20182017 TransDermal 1 patches, TransDermal, Daily HYDROmorphone(Dilaudid range dose) 0.2 mL 04/26/2018 04/29/2018 IV Push 0.2 mg 0.2 mg=0.2 mL, IV Push, q2hr, PRN: Pain - Breakthrough Lactated Ringers Injection(Lactated Ringers Injection 1,000 mL) 1,000 mL 04/27/2018 04/29/2018 IV 50 mL/hr, IV sodium phosphate(sodium phosphate) 13.33 mL 04/27/2018 04/27/2018 IV Piggyback 40 mmol 40 mmol=13.33 mL, 43.89 mL/hr, IV Piggyback, Once simethicone(Gas-X 80 mg oral tablet, chewable) 1 tabs 04/27/2018 04/29/2018 Oral 1 tabs, Oral, TID oxyCODONE(oxyCODONE 5 mg oral tablet) 1 tabs 04/29/2018 05/16/2018 Oral 5 mg 5 mg=1 tabs, Oral, q4hr, PRN: Pain Moderate (4-6), 30 tabs, 0 Refill(s) Problems Date Dx Coded Attending Type Code [...] OTHER GENERALIZED ISCHEMIC CEREBROVASCULAR DISEASE 11/18/2009 HARO DO NAIN K 493.90 Asthma Unspecified 11/18/2009 HARO DO NAIN K 530.81 GERD 11/18/2009 NAHOMY BETH [...] NAIN K 266.2 OTHER B-COMPLEX DEFICIENCIES 11/18/2009 HAOR DO, NAIN K 356.9 NEUROPATHY 11/18/2009 HARO [...] Of Foot, Unspecified Site 11/28/2009 NAHOMY BETH MD9.47 Pain In Joint Involving Ankle And Foot [...] Of Foot, Unspecified Site 11/28/2009 NAHOMY BETH MD9.47 Pain In Joint Involving Ankle And Foot [...] Of Foot, Unspecified Site 11/28/2009 NAHOMY BETH MD9.47 Pain In Joint Involving Ankle And Foot [...] Leg, Lateral Collateral Ligament Of Knee 12/01/2009 IGNACIA CARRERO, NAHOMY 781.0 ABNORMAL INVOLUNTARY MOVEMENTS 12/01/2009 IGNACIA CARRERO, NAHOMY 844.0 Sprains And Strains Of Knee And Leg, Lateral Collateral Ligament Of Knee 12/14/2009 Ot 285.21 12/14/2009 Ot 585.9 12/14/2009 Ot V58.81 01/09/2010 NHAOMY BETH MD 459.81 VENOUS (PERIPHERAL) INSUFFICIENCY, UNSPECIFIED 01/09/2010 NAHOMY BETH MD 585.9 CHRONIC KIDNEY DISEASE, UNSPECIFIED 01/09/2010 NAHOMY [...] MD 585.9 CHRONIC KIDNEY DISEASE, UNSPECIFIED 01/09/2010 NAHOMY BETH MD 459.81 VENOUS (PERIPHERAL) INSUFFICIENCY, UNSPECIFIED 01/09/2010 NAHOMY BETH MD5.9 CHRONIC KIDNEY DISEASE, UNSPECIFIED 01/09/2010 NAIN HARO DO 459.81 VENOUS (PERIPHERAL) INSUFFICIENCY, UNSPECIFIED 01/09/2010 NAIN HARO DO 585.9 CHRONIC KIDNEY DISEASE, UNSPECIFIED 01/09/2010 IGNACIA CARRERO, NAHOMY 459.81 VENOUS (PERIPHERAL) INSUFFICIENCY, UNSPECIFIED 01/09/2010 IGNACIA CARRERO, NAHOMY Hurd.9 CHRONIC KIDNEY DISEASE, UNSPECIFIED 01/09/2010 NAHOMY BETH MD 459.81 VENOUS (PERIPHERAL) INSUFFICIENCY, UNSPECIFIED 01/09/2010 NAHOMY BETH MD.9 CHRONIC KIDNEY DISEASE, UNSPECIFIED 01/09/2010 HARO NAIN DOEWLL K 459.81 VENOUS (PERIPHERAL) INSUFFICIENCY, UNSPECIFIED 01/09/2010 HARO NAIN DOWELL 585.9 CHRONIC KIDNEY DISEASE, UNSPECIFIED 01/09/2010 HARO DO, NAIN K 459.81 VENOUS (PERIPHERAL) INSUFFICIENCY, UNSPECIFIED 01/09/2010 NAIN [...] 459.81 VENOUS (PERIPHERAL) INSUFFICIENCY, UNSPECIFIED 01/09/2010 SATYA DPJuanpablo, CASIE 585.9 CHRONIC KIDNEY DISEASE, UNSPECIFIED 01/09/2010 NAHOMY BETH MD 459.81 VENOUS (PERIPHERAL) INSUFFICIENCY, UNSPECIFIED 01/09/2010 NAHOMY BETH MD5.9 CHRONIC KIDNEY DISEASE, UNSPECIFIED 02/23/2010 IGNACIA CARRERO, [...] NAIN K 599.0 Urinary Tract Infection 02/23/2010 IGNACIA ACRRERO, NAHOMY 599.0 Urinary Tract Infection 02/23/2010 NAHOMY BETH MD 599.0 Urinary Tract Infection 02/23/2010 HARO DO, NAIN K 599.0 Urinary Tract Infection 02/23/2010 HARO DO, NAIN K 599.0 Urinary Tract Infection 02/23/2010 NAHOMY [...] 03/07/2010 Ot V58.61 04/10/2010 NAHOMY BETH MD 462 Pharyngitis Acute 04/10/2010 NAHOMY BETH MD 462 Pharyngitis Acute 04/10/2010 462 Pharyngitis Acute 04/10/2010 462 Pharyngitis Acute 04/10/2010 462 Pharyngitis Acute 04/10/2010 462 Pharyngitis Acute 04/10/2010 462 Pharyngitis Acute 04/10/2010 NAHOMY BETH MD 462 Pharyngitis Acute 04/10/2010 NAHOMY BETH MD 462 Pharyngitis Acute 04/10/2010 HARO DO, NAIN K 462 Pharyngitis Acute 04/10/2010 IGNACIA CARRERO, NAHOMY 462 Pharyngitis Acute 04/10/2010 IGNACIA CARRERO, NAHOMY 462 Pharyngitis Acute 04/10/2010 HARO DO, NAIN [...] MD 789.00 Abdominal Pain Unspecified Site 04/24/2010 NAIN HARO DO K 789.00 Abdominal Pain Unspecified Site 04/24/2010 NAHOMY BETH MD 789.00 Abdominal Pain Unspecified Site 04/24/2010 NAHOMY BETH MD 789.00 Abdominal Pain Unspecified Site 04/24/2010 NAIN HARO DO 789.00 Abdominal Pain Unspecified Site 04/24/2010 HARO DOKRYSTALA K 789.00 Abdominal Pain Unspecified Site 04/24/2010 NAHOMY BETH MD 789.00 Abdominal Pain Unspecified Site 04/24/2010 SATYA DPM, CASIE 789.00 Abdominal Pain Unspecified Site 04/24/2010 SATYA DPM, CASIE 789.00 Abdominal Pain Unspecified Site 04/24/2010 NAHOMY BTEH MD 789.00 Abdominal Pain Unspecified Site 04/24/2010 SATYA BRANTLEY, CASIE 789.00 Abdominal Pain Unspecified Site 04/24/2010 [...] 112.1 Candidiasis Of Vulva And Vagina 06/05/2010 NAIN HARO DO 112.1 Candidiasis Of Vulva And Vagina 06/05/2010 NAHOMY BETH MD 112.1 Candidiasis Of Vulva And Vagina 06/05/2010 NAHOMY BETH MD 112.1 Candidiasis Of Vulva And Vagina 06/05/2010 NAIN HARO DO 112.1 Candidiasis Of Vulva And Vagina 06/05/2010 NAIN HARO DO 112.1 Candidiasis Of Vulva And Vagina 06/05/2010 NAHOMY BETH MD 112.1 Candidiasis Of Vulva And Vagina 06/05/2010 CASIE ARRIAGA DPM 112.1 Candidiasis Of Vulva And Vagina 06/05/2010 UMM ARRIAGA DPMIN 112.1 Candidiasis Of Vulva And Vagina 06/05/2010 NAHOMY BETH MD 112.1 Candidiasis Of Vulva And Vagina 06/05/2010 CASIE ARRIAGA DPM 112.1 Candidiasis Of Vulva And Vagina 06/05/2010 [...] Respiratory Infections Of Unspecified Site 08/18/2010 SATYA DPM, CASIE 465.9 Acute Upper Respiratory Infections Of Unspecified Site 08/18/2010 SATYA DPM, CASIE 465.9 Acute Upper Respiratory Infections Of Unspecified Site 08/18/2010 NAHOMY BETH MD 465.9 Acute Upper Respiratory Infections Of Unspecified Site 08/18/2010 SATYA DPM, CASIE 465.9 Acute Upper Respiratory [...] Abdominal Pain Unspecified Site 05/10/2011 NAHOMY BETH MD9.00 Abdominal Pain Unspecified Site 05/10/2011 NAHOMY BETH [...] BETH MD V58.69 MEDICATION HIGH RISK 06/04/2011 HUERTER MD, NAHOMY V58.69 MEDICATION HIGH RISK 06/04/2011 V58.69 MEDICATION [...] MD 924.9 Contusion Of Unspecified Site 06/21/2011 NAIN HARO DO K 686.9 Unspecified Local Infection Of Skin And Subcutaneous Tissue 06/21/2011 NAIN HARO DO K 924.9 Contusion Of Unspecified Site 06/21/2011 [...] Infection Of Skin And Subcutaneous Tissue 06/21/2011 NAIN HARO DO K 924.9 Contusion Of Unspecified Site 06/21/2011 NAIN HARO DO K 686.9 Unspecified Local Infection Of Skin And Subcutaneous Tissue 06/21/2011 NAIN HARO DO K 924.9 Contusion Of Unspecified Site 06/21/2011 [...] 780.39 OTHER CONVULSIONS 09/17/2011 NAIN HARO DO 780.39 OTHER CONVULSIONS 09/17/2011 NAHOMY BETH MD 780.39 OTHER CONVULSIONS 09/17/2011 NAHOMY BETH MD 780.39 OTHER CONVULSIONS 09/17/2011 NAIN HARO DO 780.39 OTHER CONVULSIONS 09/17/2011 NAIN HARO DO 780.39 OTHER CONVULSIONS 09/17/2011 NAHOMY BETH MD [...] Candidiasis Of Skin And Nails 09/25/2011 SATYA BRANTLEY, CASIE 112.3 Candidiasis Of Skin And Nails 09/25/2011 NAHOMY BETH MD 112.3 Candidiasis Of Skin And Nails 09/25/2011 CASIE ARRIAGA DPM 112.3 Candidiasis Of Skin And Nails 09/25/2011 NAHOMY BETH MD 112.3 Candidiasis Of Skin And Nails 10/11/2011 Ot 434.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 10/11/2011 Ot 780.39 OTHER CONVULSIONS 10/14/2011 Ot 414.01 CORONARY ATHEROSCLEROSIS OF [place] CORON 10/14/2011 Ot 891.0 OPEN WND KNEE [...] Candidiasis Of Vulva And Vagina 01/03/2012 NAHOMY BEHT MD 112.1 Candidiasis Of Vulva And Vagina [...] ARRIAGA DPM 616.10 Vaginitis Vulvovaginitis Unspecified 01/15/2012 SATYA BRANTLEY, [...] MD 789.00 Abdominal Pain Unspecified Site 03/17/2012 NANI HARO DO 789.00 Abdominal Pain Unspecified Site 03/17/2012 NAHOMY BETH MD 789.00 Abdominal Pain Unspecified Site 03/17/2012 NAHOMY BETH MD9.00 Abdominal Pain Unspecified Site 03/17/2012 NAIN HARO DO 789.00 Abdominal Pain Unspecified Site 03/17/2012 NAIN HARO DO 789.00 Abdominal Pain Unspecified Site 03/17/2012 NAHOMY BETH MD 789.00 Abdominal Pain Unspecified Site 03/17/2012 SATYA BRANTLEY, CASIE 789.00 Abdominal Pain Unspecified Site 03/17/2012 SATYA BRANTLEY, CASIE 789.00 Abdominal Pain Unspecified Site 03/17/2012 HUERTER MD, NAHOMY 789.00 Abdominal Pain Unspecified Site 03/17/2012 SATYA [...] LATE EFFECTS OF CEREBROVASCULAR DISEASE 04/15/2012 HARO DO NAIN K 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 04/15/2012 NAHOMY BETH MD 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 04/15/2012 NAHOMY BETH MD 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 04/15/2012 HARO DO NAIN K 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 04/15/2012 HARO DO NAIN K 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 04/15/2012 NAHOMY BETH MD 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 04/15/2012 SATYA DPM, CASIE 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 04/15/2012 SATYA BRANTLEY, CASIE 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 04/15/2012 NAHOMY BETH MD 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 04/15/2012 SATYA DPJuanpablo, CASIE 438.89 OTHER LATE EFFECTS OF CEREBROVASCULAR [...] 553.1 UMBILICAL HERNIA 05/20/2012 NAIN HARO DO 553.1 UMBILICAL HERNIA 05/20/2012 NAIN HARO DO K 553.1 UMBILICAL HERNIA 05/20/2012 NAHOMY BETH [...] MD Ot V58.61 ANTICOAGULANTS,LT,CURRENT USE 01/31/2013 JUAN CARRERO DEEPTI A Ot 920 CONTUSION FACE/SCALP/NCK 01/31/2013 ATIYA MARTINEZ MDNT A Ot 924.11 CONTUSION OF KNEE 01/31/2013 DEEPTI MARTINEZ MD A Ot 959.01 HEAD INJURY, NOS 01/31/2013 ATIYA MARTINEZ MDNT A Ot E000.8 OTHER EXTERNAL CAUSE STATUS 01/31/2013 DEEPTI MARTINEZ MD A Ot E849.0 ACCIDENT IN HOME 01/31/2013 DEEPTI MARTINEZ MD A Ot E884.3 FALL FROM WHEELCHAIR 02/03/2013 ATIYA MARTINEZ MDNT A Ot 790.92 COAGULATION PROFILE, ABNORMAL 02/03/2013 ATIYA MARTINEZ MDNT A Ot 920 CONTUSION FACE/SCALP/NCK 02/03/2013 DEEPTI MARTINEZ MD A Ot 959.09 INJURY OF FACE AND NECK 02/03/2013 JUAN CARRERO DEEPTI A Ot E000.8 OTHER EXTERNAL CAUSE STATUS 02/03/2013 DEEPTI MARTINEZ MD A Ot E849.0 ACCIDENT IN HOME 02/03/2013 DEEPTI MARTINEZ MD A Ot E884.3 FALL FROM WHEELCHAIR 02/03/2013 ATIYA MARTINEZ MDNT A Ot V58.61 ANTICOAGULANTS,LT,CURRENT USE 02/05/2013 959.01 [...] OTHER AND UNSPECIFIED INJURY TO HEAD 02/05/2013 HARO DO, NAIN K 959.01 OTHER AND UNSPECIFIED INJURY TO HEAD 02/05/2013 ESTRELLITA DOWELL, NAIN K 959.01 OTHER AND UNSPECIFIED INJURY TO HEAD 02/05/2013 NAHOMY BETH MD 959.01 OTHER AND UNSPECIFIED INJURY TO HEAD 02/05/2013 SATYA DPM, CASIE 959.01 OTHER AND UNSPECIFIED INJURY TO HEAD 02/05/2013 SATYA DPM, CASIE 959.01 OTHER AND UNSPECIFIED INJURY TO HEAD 02/05/2013 NAHOMY BETH MD 959.01 OTHER AND UNSPECIFIED INJURY TO HEAD 02/05/2013 SATYA DPM, CASIE 959.01 OTHER AND UNSPECIFIED INJURY TO [...] FALL 02/08/2013 NAHOMY BETH MD Ot V58.69 OT MED,LT,CURRENT USE 03/06/2013 NICK ONEILL MD Ot 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 03/06/2013 NICK ONEILL MD Ot V12.51 HX-VENOUS THROMBOSIS EMBOLISM 03/11/2013 MAYELIN ETIENNE MD Ot 459.81 VENOUS INSUFFICIENCY NOS 03/11/2013 MAYELIN ETIENNE MD, Ot V58.81 FIT/ADJ VASCULAR CATHETER 06/16/2013 MAYELIN ETIENNE MD, Ot 459.81 VENOUS INSUFFICIENCY NOS 07/24/2013 KRISTY [...] 716.90 UNSPECIFIED ARTHROPATHY SITE UNSPECIFIED 10/29/2013 SATYA BRANTLEY, CASIE 716.90 UNSPECIFIED ARTHROPATHY SITE UNSPECIFIED 10/29/2013 SATYA BRANTLEY, CASIE 716.90 UNSPECIFIED ARTHROPATHY SITE UNSPECIFIED 10/29/2013 NAHOMY BETH MD 716.90 UNSPECIFIED ARTHROPATHY SITE UNSPECIFIED 10/29/2013 SATYA BRANTLEY, CASIE 716.90 UNSPECIFIED ARTHROPATHY SITE UNSPECIFIED 10/29/2013 NAHOMY BETH MD 716.90 UNSPECIFIED ARTHROPATHY SITE UNSPECIFIED 12/16/2013 CHIVO CARRERO, KRISTY Kennedy Ot 272.0 PURE HYPERCHOLESTEROLEM 12/16/2013 CHIOV CARRERO, KRISTY Kennedy Ot 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, UNSPECIFIED, 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 12/16/2013 [...] MD Ot V58.69 OTH MED,LT,CURRENT USE 01/01/2014 NAIN HARO DO 826.0 FX TOE(S) 01/01/2014 NAIN HARO DO 826.0 FX TOE(S) 01/01/2014 NAHOMY BETH MD 826.0 FX TOE(S) 01/01/2014 CASIE ARRIAGA DPM 826.0 FX TOE(S) 01/01/2014 CASIE ARRIAGA DPM 826.0 FX TOE(S) 01/01/2014 NAHOMY BETH MD 826.0 FX TOE(S) 01/01/2014 CASIE ARRIAGA DPM 826.0 FX TOE(S) 01/01/2014 NAHOMY BETH MD 826.0 FX TOE(S) 01/21/2014 MAYELIN ETIENNE MD Ot 459.81 VENOUS INSUFFICIENCY NOS 02/25/2014 NICK ONEILL MD Ot 285.9 ANEMIA NOS 02/25/2014 NICK ONEILL MD Ot 562.10 DIVERTICULOSIS COLON (W/O MENT OF HEMORR 02/25/2014 NICK ONEILL MD Ot 578.9 GASTROINTEST HEMORR NOS 02/25/2014 NICK ONEILL MD Ot 787.91 DIARRHEA 02/25/2014 NICK ONEILL MD Ot V16.0 FAMILY HX-GI MALIGNANCY 03/04/2014 IGNACIA CARRERO, NAHOMY 724.5 BACKACHE UNSPECIFIED [...] NAHOMY BETH MD Ot 459.81 06/10/2014 VICKI LEBRON, ALI FACP CCDS Ot 433.10 06/11/2014 NAHOMY [...] V70.0 ROUTINE GENERAL MEDICAL EXAMINATION AT A [facility] 07/09/2014 NAHOMY BETH MD Ot 459.81 07/13/2014 VICKI LEBRONC, ALI FACP CCDS Ot 433.10 07/13/2014 VICKI CARRERO FACC, ALI FACP CCDS Ot 272.4 07/13/2014 VICKI CARRERO FAC, ALI FACP CCDS Ot 342.90 07/13/2014 VICKI CARRERO FAC, ALI FACP CCDS Ot 403.90 07/13/2014 VICKI [...] SATYA DPM, CASIE Q Ot 735.4 08/12/2014 SAYTA DPM, CASIE Q Ot V72.63 08/12/2014 SATYA [...] 11/19/2014 IGNACIA CARRERO, NAHOMY Moody Ot 459.81 11/22/2014 IGNACIA CARRERO, NAHOMY F Ot 459.81 11/22/2014 IGNACIA CARRERO, NAHOMY F Ot 459.81 12/03/2014 IGNACIA CARRERO, NAHOMY Moody Ot 459.81 12/15/2014 IGNACIA CARRERO, NAHOMY Moody Ot 459.81 12/17/2014 IGNACIA CARRERO, NAHOMY Moody Ot 459.81 12/28/2014 IGNACIA CARRERO, NAHOMY Moody Ot 459.81 12/31/2014 IGNACIA CARRERO, NAHOMY Moody Ot 459.81 01/14/2015 IGNACIA CARRERO, NAHOMY Moody Ot 459.81 01/28/2015 IGNACIA CARRERO, NAHOMY Moody Ot 459.81 02/11/2015 IGNACIA CARRERO, NAHOMY Moody Ot 459.81 02/17/2015 IGNACIA CARRERO, NAHOMY Moody Ot 459.81 VENOUS INSUFFICIENCY NOS 03/01/2015 IGNACIA CARRERO, NAHOMY Moody Ot 459.81 03/11/2015 IGNACIA CARRERO, NAHOMY Moody Ot 459.81 03/18/2015 [employer] AMBASS[employer]OR Ot 272.4 03/23/2015 IGNACIA CARRERO, NAHOMY Moody Ot 459.81 VENOUS INSUFFICIENCY NOS 03/25/2015 IGNACIA CARRERO, NAHOMY Moody Ot 459.81 03/25/2015 IGNACIA CARRERO, NAHOMY Moody Ot 459.81 03/25/2015 IGNACIA CARRERO, NAHOMY Moody Ot 459.81 03/28/2015 [employer] Ot 272.4 04/08/2015 IGNACIA CARRERO, NAHOMY Moody [...] Geronimo Ot V72.81 06/03/2015 DAVID CARRERO, ARUN M Ot V72.83 06/03/2015 DAVID CARRERO, ARUN M Ot V74.8 06/03/2015 LUCIANA MARTINEZ [employer] SERVICE AMBASSADOR Ot 414.00 06/03/2015 LUCIANA MARTINEZ [employer] SERVICE AMBASSADOR Ot 785.1 06/03/2015 NINO CARRERO, NICK S Ot 459.81 06/03/2015 NINO CARRERO, NICK S Ot 553.20 06/03/2015 NINO CARRERO, NICK S Ot V72.63 06/03/2015 NINO CARRERO, NICK S Ot V74.8 06/03/2015 VICKI CARRERO [facility], ALI FACP CCDS Ot 433.10 06/03/2015 [employer] AMB[employer]OR Ot 433.10 06/03/2015 IGNACIA CARRERO, NAHOMY Moody Ot 585.9 06/03/2015 IGNACIA CARRERO, NAHOMY Moody Ot V58.69 06/03/2015 NINO CARRERO, NICK S Ot 996.74 06/03/2015 NINO CARRERO, NICK S Ot V58.61 06/03/2015 NINO CARRERO, NICK S Ot 459.81 06/03/2015 NINO CARRERO, NICK S Ot V72.84 06/03/2015 ZEESHAN CARRERO, KOREY Bernard Ot 593.9 06/03/2015 ROCIO [employer]ELD [employer] SERVICE AMBASSADOR Ot 272.4 06/03/2015 ROCIO FI[employer] FO[employer] SERVICE AMBASSADOR Ot 403.90 06/03/2015 ROCIO FI[employer] FO[employer] SERVICE AMBASSADOR Ot 434.91 06/03/2015 ROCIO FI[employer] FOOD SERVICE AMBASSADOR Ot 453.40 06/03/2015 ROCIO FIELD FOOD SERVICE AMBASSADOR Ot 585.2 06/03/2015 ROCIO FIELD L FOOD SERVICE AMBASSADOR Ot V58.61 06/03/2015 NINO CARRERO, NICK S Ot V72.84 06/03/2015 NINO CARRERO, NICK S Ot 285.9 06/03/2015 VICKI CARRERO FACC, ALI FACP CCDS Ot 272.4 06/03/2015 VICKI LEBRONC, ALI FACP CCDS Ot 342.90 06/03/2015 VICKI CARRERO FACC, ALI FACP CCDS Ot 403.90 06/03/2015 VICKI CARRERO FACC, ALI FACP CCDS Ot 585.2 06/03/2015 VICKI CARRERO [facility], ALI FACP CCDS Ot 785.1 06/03/2015 VICKI MD FAC, ALI FACP CCDS Ot 786.50 06/03/2015 VICKI MD FAC, ALI FACP CCDS Ot V58.61 06/03/2015 VICKI MD FAC, ALI FACP CCDS Ot 433.10 06/03/2015 VICKI MD FAC, ALI FACP CCDS Ot 780.4 06/03/2015 VICKI MD [facility], ALI FACP CCDS Ot 780.79 06/03/2015 VICKI MD [facility], ALI FACP CCDS Ot 785.1 06/03/2015 VICKI MD [facility], ALI FACP CCDS Ot V58.61 06/03/2015 VICKI MD FAC, ALI FACP CCDS Ot V58.69 06/03/2015 VICKI MD FAC, ALI FACP CCDS Ot 785.1 06/03/2015 VICKI MD [facility], ALI FACP CCDS Ot 786.50 06/03/2015 SATYA DPM, CASIE Q Ot 735.4 06/03/2015 SATYA DPM, CAISE Q Ot V72.63 06/03/2015 SATYA DPM, CASIE Q Ot V74.8 06/03/2015 ROCIO [employer] SERVICE AMBASSADOR Ot 272.4 06/03/2015 IGNACIA CARRERO, NAHOMY Moody Ot I87.2 06/03/2015 IGNACIA CARRERO, NAHOMY Moody Ot R10.9 06/03/2015 IGNACIA CARRERO, NAHOMY Moody Ot R11.10 06/03/2015 JEANETTE KENDRICK DO Ot I69.954 HEMIPLGA FOL [facility] CEREBVASC DISEASE AFF 06/03/2015 JEANETTE KENDRICK DO Ot S80.11XA CONTUSION OF RIGHT LOWER LEG, INITIAL EN 06/03/2015 JEANETTE KENDRICK DO Ot S93.401A SPRAIN OF UNSPECIFIED LIGAMENT OF RIGHT 06/03/2015 JEANETTE KENDRICK DO Ot W05.0XXA FALL FROM NON-MOVING WHEELCHAIR, INITIAL 06/03/2015 JEANETTE KENDRICK DO Ot Y92.[address] IN [facility] NON-INSTITUT (PRIVATE 06/03/2015 JEANETTE KENDRICK DO Ot Y99.8 OTHER EXTERNAL CAUSE STATUS 06/03/2015 IGNACIA CARRERO, NAHOMY Moody Ot I87.2 06/16/2015 IGNACIA CARRERO, NAHOMY Moody Ot I87.2 06/20/2015 IGNACIA CARRERO, NAHOMY Moody Ot I87.2 06/23/2015 IGNACIA CARRERO, NAHOMY Moody Ot I87.2 VENOUS INSUFFICIENCY (CHRONIC) (PERIPHER 07/01/2015 IGNACIA CARRERO, NAHOMY Moody Ot I87.2 07/04/2015 IGNACIA CARRERO, NAHOMY Moody Ot I87.2 07/15/2015 IGNACIA CARRERO, NAHOMY Moody Ot I87.2 07/29/2015 IGNACIA CARRERO, NAHOMY Moody Ot I87.2 08/12/2015 IGNACIA CARRERO, NAHOMY Moody Ot I87.2 08/19/2015 IGNACIA CARRERO, NAHOMY Moody Ot I87.2 08/26/2015 IGNACIA CARRERO, NAHOMY Moody Ot I87.2 08/30/2015 IGNACIA CARRERO, NAHOMY Moody Ot I87.2 09/02/2015 ALLISON THOMPSON MD Ot I69.998 OTHER SEQUELAE FOLLOWING UNSPECIFIED CER 09/02/2015 ALLISON THOMPSON MD Ot R29.898 OT SYMPTOMS AND SIGNS INVOLVING THE MUS 09/02/2015 ALLISON THOMPSON MD Ot R79.1 ABNORMAL COAGULATION PROFILE 09/02/2015 ALLISON THOMPSON MD Ot S09.90XA UNSPECIFIED INJURY OF HEAD, INITIAL ENCO 09/02/2015 ALLISON THOMPSON MD Ot S80.02XA CONTUSION OF LEFT KNEE, INITIAL ENCOUNTE 09/02/2015 ALLISON THOMPSON MD Ot W05.0XXA FALL FROM NON-MOVING WHEELCHAIR, INITIAL 09/02/2015 ALLISON THOMPSON MD Ot Y92.[address] IN [facility] NON-INSTITUT (PRIVATE 09/02/2015 ALLISON THOMPSON MD Ot Y99.8 OTHER EXTERNAL CAUSE STATUS 09/02/2015 ALLISON THOMPSON MD Ot Z79.01 FPC (CURRENT) USE OF ANTICOAGULANT 09/02/2015 ALLISON THOMPSON MD Ot Z79.899 OTHER ERP PROGRAMMER (CURRENT) DRUG THERAPY 09/05/2015 ALLISON THOMPSON MD Ot I69.998 09/05/2015 ALLISON THOMPSON MD Ot R29.898 09/05/2015 JAY CARRERO, ALLISON Gonzalez [...] IGNACIA CARRERO, NAHOMY Moody Ot I87.2 09/29/2015 NAHOMY BETH MD Ot [...] I87.2 VENOUS INSUFFICIENCY (CHRONIC) (PERIPHER 11/14/2015 NAHOMY BEHT MD Ot I87.2 VENOUS INSUFFICIENCY (CHRONIC) (PERIPHER 11/18/2015 ZEESHAN CARRERO, KOREY Bernard Ot N19 UNSPECIFIED KIDNEY FAILURE 11/18/2015 NAHOMY BETH MD Ot I87.2 VENOUS INSUFFICIENCY (CHRONIC) (PERIPHER 11/18/2015 KOREY BYERS MD Ot N19 UNSPECIFIED KIDNEY FAILURE 12/02/2015 NAHOMY [...] (PERIPHER 05/04/2016 NAHOMY BETH MD Ot Z79.01 ERP PROGRAMMER (CURRENT) USE OF ANTICOAGULANT 05/15/2016 NAHOMY BETH MD Ot I87.2 VENOUS INSUFFICIENCY (CHRONIC) (PERIPHER 05/15/2016 NAHOMY BETH MD Ot Z79.01 FPC (CURRENT) USE OF ANTICOAGULANT 05/16/2016 NAHOMY BETH MD Ot I87.2 VENOUS INSUFFICIENCY (CHRONIC) (PERIPHER 05/16/2016 NAHOMY BETH MD Ot Z79.01 FPC (CURRENT) USE OF ANTICOAGULANT 05/28/2016 NAHOMY BETH MD Ot I87.2 VENOUS INSUFFICIENCY (CHRONIC) (PERIPHER 05/28/2016 NAHOMY BETH MD Ot Z79.01 ERP PROGRAMMER (CURRENT) USE OF ANTICOAGULANT 07/19/2016 NAHOMY BETH MD Ot I87.2 VENOUS INSUFFICIENCY (CHRONIC) (PERIPHER 07/19/2016 NAHOMY BETH MD Ot Z79.01 FPC (CURRENT) USE OF ANTICOAGULANT 08/22/2016 Ot 345.90 [...] PECTO 09/20/2016 IGNACIA CARRERO, NAHOMY Moody Ot 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 PECTO 09/20/2016 IGNACIA CARRERO, NAHOMY Moody Ot Z12.31 ENCNTR SCREEN MAMMOGRAM FOR MALIGNANT NE 10/05/2016 IGNACIA CARRERO, NAHOMY Moody Ot 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 PECTO 10/16/2016 NAHOMY BETH MD Ot I25.810 ATHEROSCLEROSIS OF [...] NATIV 11/29/2016 Ot 414.01 CORONARY ATHEROSCLEROSIS OF [place] CORON 11/29/2016 Ot 585.9 CHRONIC KIDNEY DISEASE, [...] MD Ot V72.63 PRE-PROCEDURAL LABORATORY EXAMINATION 11/29/2016 DAVID CARRERO, ARUN Geronimo Ot V72.81 [id number] CARDIOVASCULAR 11/29/2016 ARUN HERNANDEZ MD Ot V72.83 EXAM PRE-OPERATIVE NEC 11/29/2016 DAVID CARRERO, ARUN Geronimo Ot V74.8 SCREEN-BACTERIAL DIS NEC 11/29/2016 LUCIANA MARTINEZ FOOD SERVICE AMBASSADOR Ot 414.00 CORON ATHEROSCLER NOS TYPE VESSEL, NATIV 11/29/2016 LUCIANA MARTINEZ FOOD SERVICE AMBASSADOR Ot 785.1 PALPITATIONS 11/29/2016 NINO CARRERO, NICK Gonzalez Ot 459.81 VENOUS INSUFFICIENCY NOS 11/29/2016 NINO CARRERO, NICK Gonzalez Ot 553.20 VENTRAL HERNIA NOS 11/29/2016 NINO CARRERO, NICK Gonzalez Ot V72.63 PRE-PROCEDURAL LABORATORY EXAMINATION 11/29/2016 NINO CARRERO, NICK Gonzalez Ot V74.8 SCREEN-BACTERIAL DIS NEC 11/29/2016 VICKI CARRERO FACC, YORDAN FACP CCDS Ot 433.10 CAROTID ARTERY OCCLUSION W O CEREBRAL IN 11/29/2016 ROCIO FIELDP Ot 433.10 CAROTID ARTERY OCCLUSION W O CEREBRAL IN 11/29/2016 IGNACIA CARRERO, NAHOMY Moody Ot 585.9 CHRONIC KIDNEY DISEASE, UNSPECIFIED 11/29/2016 NAHOMY BETH MD Ot V58.69 OTH MED,LT,CURRENT USE 11/29/2016 NICK ONEILL MD Ot 996.74 OTH COMPL DUE TO OT VASCULAR DEVICE,IMP 11/29/2016 NICK ONEILL MD Ot V58.61 ANTICOAGULANTS,LT,CURRENT USE 11/29/2016 NICK ONEILL MD Ot 459.81 VENOUS INSUFFICIENCY NOS 11/29/2016 NICK ONEILL MD Ot V72.84 EXAM PRE-OPERATIVE NOS 11/29/2016 ZEESHAN CARRERO, KOREY Bernard Ot 593.9 RENAL URETERAL DIS NOS 11/29/2016 ROCIO [employer] SERVICE AMBASSADOR Ot 272.4 HYPERLIPIDEMIA NEC/NOS 11/29/2016 ROCIO FIELD FOOD SERVICE AMBASSADOR Ot 403.90 HYPTNSV CHR KID DIS, UNSPEC, W CHR KD ST 11/29/2016 ROCIO FIELD FOOD SERVICE AMBASSADOR Ot 434.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 11/29/2016 ROCIO FIELD FOOD SERVICE AMBASSADOR Ot 453.40 ACUTE VENOUS EMBOLISM THROMBOSIS UNSP 11/29/2016 CRISTIANNERY OTEROHER Newberry FOOD SERVICE AMBASSADOR Ot 585.2 CHRONIC KIDNEY DISEASE, STAGE II (MILD) 11/29/2016 ROCIO FIELD FOOD SERVICE AMBASSADOR Ot V58.61 ANTICOAGULANTS,LT,CURRENT USE 11/29/2016 NICK ONEILL MD Ot V72.84 EXAM PRE-OPERATIVE NOS 11/29/2016 NICK ONEILL MD Ot 285.9 ANEMIA NOS 11/29/2016 VICKI LEBRONC, ALI FACP CCDS Ot 272.4 HYPERLIPIDEMIA NEC/NOS [...] V74.8 SCREEN-BACTERIAL DIS NEC 11/29/2016 ROCIO FIELD FO[employer] SERVICE AMBASSADOR Ot 272.4 HYPERLIPIDEMIA NEC/NOS 11/29/2016 NAHOMY BETH MD Ot R10.9 UNSPECIFIED ABDOMINAL PAIN 11/29/2016 NAHOMY BETH MD Ot R11.10 VOMITING, UNSPECIFIED 11/29/2016 KOREY BYERS MD Ot N19 UNSPECIFIED KIDNEY FAILURE 11/29/2016 NAHOMY BETH MD Ot I87.2 VENOUS INSUFFICIENCY (CHRONIC) (PERIPHER 11/29/2016 NAHOMY BETH MD Ot Z79.01 FPC (CURRENT) USE OF ANTICOAGULANT 11/29/2016 NAHOMY BETH [...] Z01.818 ENCOUNTER FOR OTHER PREPROCEDURAL EXAMIN 02/15/2017 ZEESHAN CARRERO, KOREY A Ot N28.9 DISORDER OF KIDNEY AND URETER, UNSPECIFI 02/15/2017 JENA CARRERO, ALLISON Stevenson Ot D64.9 ANEMIA, UNSPECIFIED 02/15/2017 ALLISON BELLA MD Ot G40.909 EPILEPSY, UNSP, NOT INTRACTABLE, WITHOUT 02/15/2017 JENA CARRERO, ALLISON Stevenson Ot I12.9 HYPERTENSIVE CHRONIC KIDNEY DISEASE W ST 02/15/2017 JENA CARRERO, ALLISON Stevenson Ot K43.9 VENTRAL HERNIA WITHOUT OBSTRUCTION OR GA 02/15/2017 ALLISON BELLA MD, Ot K62.5 HEMORRHAGE OF ANUS AND RECTUM 02/15/2017 ALLISON BELLA MD, Ot N18.9 CHRONIC KIDNEY DISEASE, UNSPECIFIED 02/15/2017 ALLISON BELLA MD, Ot R25.1 TREMOR, UNSPECIFIED 02/15/2017 ALLISON BELLA MD, Ot Z79.01 FPC (CURRENT) USE OF ANTICOAGULANT 02/15/2017 ALLISON BELLA MD Ot Z80.0 FAMILY HISTORY OF MALIGNANT NEOPLASM [...] M81.0 AGE-RELATED OSTEOPOROSIS W/O CURRENT PAT 04/18/2017 NAHOMY BETH MD, Ot M81.0 AGE-RELATED OSTEOPOROSIS W/O CURRENT PAT 04/19/2017 NAHOMY BETH MD Ot M81.0 AGE-RELATED OSTEOPOROSIS W/O CURRENT PAT 04/24/2017 NAHOMY BETH MD, Ot M81.0 AGE-RELATED OSTEOPOROSIS W/O CURRENT PAT 05/01/2017 NAHOMY BETH MD Ot E56.9 VITAMIN DEFICIENCY, UNSPECIFIED 05/01/2017 NAHOMY BETH MD, Ot G40.911 EPILEPSY, UNSPECIFIED, INTRACTABLE, WITH 05/01/2017 NAHOMY BETH MD, Ot 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 PECTO 05/01/2017 NAHOMY BETH MD Ot I50.9 HEART FAILURE, UNSPECIFIED 05/08/2017 NAHOMY BETH MD Ot E56.9 VITAMIN DEFICIENCY, UNSPECIFIED 05/08/2017 NAHOMY BETH MD Ot G40.911 EPILEPSY, UNSPECIFIED, INTRACTABLE, WITH 05/08/2017 NAHOMY BETH MD, Ot 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 PECTO 05/08/2017 NAHOMY BETH MD Ot I50.9 HEART FAILURE, UNSPECIFIED 05/10/2017 NAHOMY BETH MD Ot M81.0 AGE-RELATED OSTEOPOROSIS W/O CURRENT PAT 05/10/2017 NAHOMY BETH MD Ot M81.0 AGE-RELATED OSTEOPOROSIS W/O CURRENT PAT 05/20/2017 NAHOMY BETH MD Ot M81.0 AGE-RELATED OSTEOPOROSIS W/O CURRENT PAT 06/11/2017 NAHOMY BETH MD Ot I25.10 ATHSCL HEART DISEASE OF [place] CORONARY 06/12/2017 NAHOMY BETH MD Ot I25.10 ATHSCL HEART DISEASE OF [place] CORONARY 06/12/2017 NAHOMY BETH MD Ot I25.10 ATHSCL HEART DISEASE OF [place] CORONARY 06/13/2017 ROCIO FIELD FOOD SERVICE AMBASSADOR Ot E78.4 OTHER HYPERLIPIDEMIA 06/13/2017 ROCIO FIELD FOOD SERVICE AMBASSADOR Ot I10 ESSENTIAL (PRIMARY) HYPERTENSION 06/13/2017 ROCIO FIELD FOOD SERVICE AMBASSADOR Ot I65.23 OCCLUSION AND STENOSIS OF BILATERAL [place] 06/13/2017 ROCIO FIELD FOOD SERVICE AMBASSADOR Ot R07.89 OTHER CHEST PAIN 07/02/2017 VICKI CARRERO FACC, YORDAN FACP CCDS Ot E78.5 HYPERLIPIDEMIA, UNSPECIFIED 07/02/2017 VICKI CARRERO FACC, ALI FACP CCDS Ot G62.9 POLYNEUROPATHY, UNSPECIFIED 07/02/2017 VICKI CARRERO FACC, ALI FACP CCDS Ot I12.9 HYPERTENSIVE CHRONIC KIDNEY DISEASE W ST 07/02/2017 VICKI CARRERO FACC, ALI FACP CCDS Ot I35.1 NONRHEUMATIC AORTIC (VALVE) INSUFFICIENC 07/02/2017 VICKI CARRERO FACC, ALI FACP CCDS Ot I65.23 OCCLUSION AND STENOSIS OF BILATERAL [place] 07/02/2017 VICKI CARREOR FACC, ALI FACP CCDS Ot I69.354 HEMIPLGA FOLLOWING CEREBRAL INFRC AFFECT 07/02/2017 VICKI CARRERO FACC, YORDAN FACP CCDS Ot M19.91 PRIMARY OSTEOARTHRITIS, UNSPECIFIED SITE 07/02/2017 VICKI CARRERO FACC, ALI FACP CCDS Ot N18.3 CHRONIC KIDNEY DISEASE, STAGE 3 (MODERAT 07/02/2017 VICKI CARRERO FACC, ALI FACP CCDS Ot Z79.01 ERP PROGRAMMER (CURRENT) USE OF ANTICOAGULANT 07/02/2017 VICKI CARRERO FACC, YORDAN FACP CCDS Ot Z79.899 OTHER FPC (CURRENT) DRUG THERAPY 07/02/2017 VICKI CARRERO FACC, ALI FACP CCDS Ot Z86.718 PERSONAL HISTORY OF OTHER VENOUS THROMBO 07/03/2017 ROCIO FIELD FOOD SERVICE AMBASSADOR Ot E78.4 OTHER HYPERLIPIDEMIA 07/03/2017 ROCIO FIELD FOOD SERVICE AMBASSADOR Ot I10 ESSENTIAL (PRIMARY) HYPERTENSION 07/03/2017 ROCIO FIELD FOOD SERVICE AMBASSADOR Ot I65.23 OCCLUSION AND STENOSIS OF BILATERAL [place] 07/03/2017 ROCIO FIELD FOOD SERVICE AMBASSADOR Ot R07.89 OTHER CHEST PAIN 07/03/2017 IGNACIA CARRERO, NAHOMY Moody Ot I25.10 ATHSCL HEART DISEASE OF [place] CORONARY 07/04/2017 VICKI CARRERO FACC, ALI FACP CCDS Ot E78.5 HYPERLIPIDEMIA, UNSPECIFIED 07/04/2017 VICKI CARRERO FACC, ALI FACP CCDS Ot G62.9 POLYNEUROPATHY, UNSPECIFIED 07/04/2017 VICKI CARRERO FACC, ALI FACP CCDS Ot I12.9 HYPERTENSIVE CHRONIC KIDNEY DISEASE W ST 07/04/2017 VICKI CARRERO FACC, ALI FACP CCDS Ot I35.1 NONRHEUMATIC AORTIC (VALVE) INSUFFICIENC 07/04/2017 VICKI CARRERO FACC, ALI FACP CCDS Ot I65.23 OCCLUSION AND STENOSIS OF [place]IL[place] 07/04/2017 VICKI CARRERO FACC, ALI FACP CCDS Ot I69.354 HEMIPLGA FOLLOWING CEREBRAL INFRC AFFECT 07/04/2017 VICKI CARRERO FACC, ALI FACP CCDS Ot M19.91 PRIMARY OSTEOARTHRITIS, UNSPECIFIED SITE 07/04/2017 VICKI CARRERO FACC, YORDAN FACP CCDS Ot N18.3 CHRONIC KIDNEY DISEASE, STAGE 3 (MODERAT 07/04/2017 VICKI CARRERO FACC, ALI FACP CCDS Ot Z79.01 ERP PROGRAMMER (CURRENT) USE OF ANTICOAGULANT 07/04/2017 VICKI CARRERO FACC, YORDAN FACP CCDS Ot Z79.899 OTHER FPC (CURRENT) DRUG THERAPY 07/04/2017 VICKI CARRERO FACC, ALI FACP CCDS Ot Z86.718 PERSONAL HISTORY OF OTHER VENOUS THROMBO 07/05/2017 ROCIO FIELD FOOD SERVICE AMBASSADOR Ot E78.4 OTHER HYPERLIPIDEMIA 07/05/2017 ROCIO FIELD FOOD SERVICE AMBASSADOR Ot I10 ESSENTIAL (PRIMARY) HYPERTENSION 07/05/2017 ROCIO FIELD FOOD SERVICE AMBASSADOR Ot I65.23 OCCLUSION AND STENOSIS OF [place]ILATERAL [place] 07/05/2017 ROCIO FIELD FOOD SERVICE AMBASSADOR Ot R07.89 OTHER CHEST PAIN 07/05/2017 VICKI CARRERO FACC, YORDAN FACP CCDS Ot E78.5 HYPERLIPIDEMIA, UNSPECIFIED 07/05/2017 VICKI CARRERO FACC, YORDAN FACP CCDS Ot G62.9 POLYNEUROPATHY, UNSPECIFIED 07/05/2017 VICKI CARRERO FACC, ALI FACP CCDS Ot I12.9 HYPERTENSIVE CHRONIC KIDNEY DISEASE W ST 07/05/2017 VICKI CARRERO FACC, ALI FACP CCDS Ot I35.1 NONRHEUMATIC AORTIC (VALVE) INSUFFICIENC 07/05/2017 VICKI CARRERO FACC, YORDAN FACP CCDS Ot I65.23 OCCLUSION AND STENOSIS OF [place] 07/05/2017 VICKI CARRERO FACC, ALI FACP CCDS Ot I69.354 HEMIPLGA FOLLOWING CEREBRAL INFRC AFFECT 07/05/2017 VICKI CARRERO FACC, ALI FACP CCDS Ot M19.91 PRIMARY OSTEOARTHRITIS, UNSPECIFIED SITE 07/05/2017 VICKI CARRERO FACC, ALI FACP CCDS Ot N18.3 CHRONIC KIDNEY DISEASE, STAGE 3 (MODERAT 07/05/2017 VICKI CARRERO FACC, ALI FACP CCDS Ot Z79.01 ERP PROGRAMMER (CURRENT) USE OF ANTICOAGULANT 07/05/2017 VICKI CARRERO FACC, ALI FACP CCDS Ot Z79.899 OTHER ERP PROGRAMMER (CURRENT) DRUG THERAPY 07/05/2017 VICKI CARRERO FACC, ALI FACP CCDS Ot Z86.718 PERSONAL HISTORY OF OTHER VENOUS THROMBO 07/08/2017 VICKI CARRERO FACC, YORDAN FACP CCDS Ot E78.5 HYPERLIPIDEMIA, UNSPECIFIED 07/08/2017 VICKI CARRERO FACC, YORDAN FACP CCDS Ot G62.9 POLYNEUROPATHY, UNSPECIFIED 07/08/2017 VICKI CARRERO FACC, ALI FACP CCDS Ot I12.9 HYPERTENSIVE CHRONIC KIDNEY DISEASE W ST 07/08/2017 VICKI CARRERO FACC, ALI FACP CCDS Ot I35.1 NONRHEUMATIC AORTIC (VALVE) INSUFFICIENC 07/08/2017 VICKI CARRERO FACC, YORDAN FACP CCDS Ot I65.23 OCCLUSION AND STENOSIS OF [place]ILATERAL [place] 07/08/2017 VICKI CARRERO FACC, ALI FACP CCDS Ot I69.354 HEMIPLGA FOLLOWING CEREBRAL INFRC AFFECT 07/08/2017 VICKI CARRERO FACC, YORDAN FACP CCDS Ot M19.91 PRIMARY OSTEOARTHRITIS, UNSPECIFIED SITE 07/08/2017 VICKI CARRERO FACC, ALI FACP CCDS Ot N18.3 CHRONIC KIDNEY DISEASE, STAGE 3 (MODERAT 07/08/2017 VICKI CARRERO FACC, ALI FACP CCDS Ot Z79.01 FPC (CURRENT) USE OF ANTICOAGULANT 07/08/2017 VICKI CARRERO FACC, ALI FACP CCDS Ot Z79.899 OTHER ERP PROGRAMMER (CURRENT) DRUG THERAPY 07/08/2017 VICKI CARRERO FACC, ALI FACP CCDS Ot Z86.718 PERSONAL HISTORY OF OTHER VENOUS THROMBO 07/16/2017 ROCIO FIELD FOOD SERVICE AMBASSADOR Ot E78.4 OTHER HYPERLIPIDEMIA 07/16/2017 NERY FIELDHER L FOOD SERVICE AMBASSADOR Ot I10 ESSENTIAL (PRIMARY) HYPERTENSION 07/16/2017 BAIMAROCIO FOOD SERVICE AMBASSADOR Ot I65.23 OCCLUSION AND STENOSIS OF [place]ILATERAL [place] 07/16/2017 BAIMAROCIO L FOOD SERVICE AMBASSADOR Ot R07.89 OTHER CHEST PAIN 07/16/2017 BAISHANNA, ROCIO L FOOD SERVICE AMBASSADOR Ot E78.4 OTHER HYPERLIPIDEMIA 07/16/2017 BAIMA, ROCIO L FOOD SERVICE AMBASSADOR Ot I10 ESSENTIAL (PRIMARY) HYPERTENSION 07/16/2017 BAIMA, ROCIO L FOOD SERVICE AMBASSADOR Ot I65.23 OCCLUSION AND STENOSIS OF [place]ILATERAL [place] 07/16/2017 BAIMAROCIO FOOD SERVICE AMBASSADOR Ot R07.89 OTHER CHEST PAIN 07/16/2017 NAHOMY BETH MD Ot I25.10 ATHSCL HEART DISEASE OF [place] CORONARY 09/05/2017 NAHOMY BETH MD, Ot Z12.31 ENCNTR SCREEN MAMMOGRAM FOR MALIGNANT NE 09/19/2017 VICKI CARRERO FACC, ALI FACP CCDS Ot 785.1 PALPITATIONS 09/19/2017 VICKI CARRERO FACC, ALI FACP CCDS Ot 786.50 CHEST PAIN NOS 09/19/2017 NAHOMY BETH MD Ot I87.2 VENOUS INSUFFICIENCY (CHRONIC) (PERIPHER 09/19/2017 NAHOMY BETH MD Ot Z79.01 ERP PROGRAMMER (CURRENT) USE OF ANTICOAGULANT 09/19/2017 JIMMY SPAULDING MD, Ot F41.9 ANXIETY DISORDER, UNSPECIFIED 09/19/2017 JIMMY SPAULDING MD, Ot G40.909 EPILEPSY, UNSP, NOT INTRACTABLE, WITHOUT 09/19/2017 JIMMY SPAULDING MD, Ot J90 PLEURAL EFFUSION, NOT ELSEWHERE CLASSIFI 09/19/2017 JIMMY SPAULDING MD, Ot M19.91 PRIMARY OSTEOARTHRITIS, UNSPECIFIED SITE 09/19/2017 JIMMY SPAULDING MD, Ot N39.0 URINARY TRACT INFECTION, SITE NOT SPECIF 09/19/2017 JIMYM SPAULDING MD, Ot R79.1 ABNORMAL COAGULATION PROFILE 09/19/2017 JIMMY SPAULDING MD, Ot Z79.899 OTHER ERP PROGRAMMER (CURRENT) DRUG THERAPY 09/19/2017 JIMMY SPAULDING MD, Ot Z85.51 PERSONAL HISTORY OF MALIGNANT NEOPLASM O 09/19/2017 JIMMY SPAULDING MD, Ot Z86.73 PRSNL HX OF TIA (TIA), AND CEREB INFRC W 09/19/2017 JIMMY SPAULDING MD, Ot Z92.21 PERSONAL HISTORY OF ANTINEOPLASTIC CHEMO 09/19/2017 JIMMY SPAULDING MD, Ot Z92.3 PERSONAL HISTORY OF IRRADIATION 09/19/2017 JIMMY SPAULDING MD, Ot Z93.6 OTHER ARTIFICIAL OPENINGS OF URINARY TRA 09/24/2017 NAHOMY BETH MD, Ot Z12.31 ENCNTR SCREEN MAMMOGRAM FOR MALIGNANT NE 12/05/2017 KOREY BYERS MD, Ot N28.9 DISORDER OF KIDNEY AND URETER, UNSPECIFI 12/05/2017 NAHOMY BETH MD, Ot M81.0 AGE-RELATED OSTEOPOROSIS W/O CURRENT PAT 12/05/2017 NAHOMY BETH MD Ot E56.9 VITAMIN DEFICIENCY, UNSPECIFIED 12/05/2017 NAHOMY BETH MD Ot G40.911 EPILEPSY, UNSPECIFIED, INTRACTABLE, WITH 12/05/2017 NAHOMY BETH MD Ot 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 PECTO 12/05/2017 NAHOMY BETH MD Ot I50.9 HEART FAILURE, UNSPECIFIED 12/05/2017 BAIMA, ROCIO L FOOD SERVICE AMBASSADOR Ot E78.4 OTHER HYPERLIPIDEMIA 12/05/2017 BAIMA, ROCIO L FOOD SERVICE AMBASSADOR Ot I10 ESSENTIAL (PRIMARY) HYPERTENSION 12/05/2017 BAIMA, ROCIO L FOOD SERVICE AMBASSADOR Ot I65.23 OCCLUSION AND STENOSIS OF BILATERAL [place] 12/05/2017 BAIMA, ROCIO L FOOD SERVICE AMBASSADOR Ot R07.89 OTHER CHEST PAIN 12/05/2017 BAIMA, ROCIO L FOOD SERVICE AMBASSADOR Ot E78.4 OTHER HYPERLIPIDEMIA 12/05/2017 BAIMA, ROCIO L FOOD SERVICE AMBASSADOR Ot I10 ESSENTIAL (PRIMARY) HYPERTENSION 12/05/2017 BAIMA, ROCIO L FOOD SERVICE AMBASSADOR Ot I65.23 OCCLUSION AND STENOSIS OF BILATERAL [place] 12/05/2017 BAIMA, ROCIO L FOOD SERVICE AMBASSADOR Ot R07.89 OTHER CHEST PAIN 12/05/2017 NAHOMY BETH MD Ot I25.10 ATHSCL HEART DISEASE OF [place] CORONARY 12/05/2017 NAHOMY BETH MD Ot Z12.31 ENCNTR SCREEN MAMMOGRAM FOR MALIGNANT NE 12/18/2017 KOREY BYERS MD Ot N19 UNSPECIFIED KIDNEY FAILURE 12/18/2017 ZEESHAN CARRERO, KOREY Bernard Ot 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) 12/18/2017 ZEESHAN CARRERO, KOREY Bernard Ot N19 UNSPECIFIED KIDNEY FAILURE 12/18/2017 ZEESHAN CARRERO, KOREY Bernard Ot 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) 01/07/2018 ZEESHAN CARRERO, KOREY Bernard Ot N19 UNSPECIFIED KIDNEY FAILURE 01/07/2018 ZEESHAN CARRERO, KOREY Bernard Ot 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) 01/17/2018 ZEESHAN CARRERO, KOREY Bernard Ot N19 UNSPECIFIED KIDNEY FAILURE 01/17/2018 ZEESHAN CARRERO, KOREY Bernard Ot 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) 02/05/2018 Ot D50.9 IRON DEFICIENCY ANEMIA, UNSPECIFIED 02/05/2018 Ot D51.0 VITAMIN B12 DEFIC ANEMIA DUE TO INTRINSI 02/05/2018 Ot E78.00 PURE HYPERCHOLESTEROLEMIA, UNSPECIFIED 02/05/2018 Ot G40.909 EPILEPSY, UNSP, NOT INTRACTABLE, WITHOUT 02/05/2018 Ot I10 ESSENTIAL ( PRIMARY) HYPERTENSION 02/05/2018 Ot I25.10 ATHSCL HEART DISEASE OF [place] CORONARY 02/05/2018 Ot I69.354 HEMIPLGA FOLLOWING CEREBRAL INFRC AFFECT 02/05/2018 Ot K21.9 GASTRO- ESOPHAGEAL REFLUX DISEASE WITHOUT 02/05/2018 Ot K59.09 OTHER CONSTIPATION 02/05/2018 Ot M81.0 AGE-RELATED OSTEOPOROSIS W/O CURRENT PAT 02/05/2018 Ot R00.1 BRADYCARDIA, UNSPECIFIED 02/05/2018 Ot R41.82 ALTERED MENTAL STATUS, UNSPECIFIED 02/05/2018 Ot R82.99 OTHER ABNORMAL FINDINGS IN URINE 02/05/2018 Ot Z66 DO NOT RESUSCITATE 02/05/2018 Ot 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 02/05/2018 Ot Z85.51 PERSONAL HISTORY OF MALIGNANT NEOPLASM O 02/05/2018 Ot Z93.6 OTHER ARTIFICIAL OPENINGS OF URINARY TRA 02/05/2018 Ot D50.9 IRON DEFICIENCY ANEMIA, UNSPECIFIED 02/05/2018 Ot D51.0 VITAMIN B12 DEFIC ANEMIA DUE TO INTRINSI 02/05/2018 Ot E78.00 PURE HYPERCHOLESTEROLEMIA, UNSPECIFIED 02/05/2018 Ot G40.909 EPILEPSY, UNSP, NOT INTRACTABLE, WITHOUT 02/05/2018 Ot I10 ESSENTIAL ( PRIMARY) HYPERTENSION 02/05/2018 Ot I25.10 ATHSCL HEART DISEASE OF [place] CORONARY 02/05/2018 Ot I69.354 HEMIPLGA FOLLOWING CEREBRAL INFRC AFFECT 02/05/2018 Ot K21.9 GASTRO- ESOPHAGEAL REFLUX DISEASE WITHOUT 02/05/2018 Ot K59.09 OTHER CONSTIPATION 02/05/2018 Ot M81.0 AGE-RELATED OSTEOPOROSIS W/O CURRENT PAT 02/05/2018 Ot R00.1 BRADYCARDIA, UNSPECIFIED 02/05/2018 Ot R41.82 ALTERED MENTAL STATUS, UNSPECIFIED 02/05/2018 Ot R82.99 OTHER ABNORMAL FINDINGS IN URINE 02/05/2018 Ot Z66 DO NOT RESUSCITATE 02/05/2018 Ot Z79.01 FPC ( CURRENT) USE OF ANTICOAGULANT 02/05/2018 Ot Z85.51 PERSONAL HISTORY OF MALIGNANT NEOPLASM O 02/05/2018 Ot Z93.6 OTHER ARTIFICIAL OPENINGS OF URINARY TRA 03/11/2018 BRANDT DO, ROSELIA D Ot K43.2 INCISIONAL HERNIA WITHOUT OBSTRUCTION OR 03/11/2018 BRANDT DO, ROSELIA D Ot K43.9 VENTRAL HERNIA WITHOUT OBSTRUCTION OR GA 04/02/2018 BRANDT DO, ROSELIA D Ot K43.2 INCISIONAL HERNIA WITHOUT OBSTRUCTION OR 04/02/2018 BRANDT DO, ROSELIA D Ot K43.9 VENTRAL HERNIA WITHOUT OBSTRUCTION OR GA 04/15/2018 BRANDT DO, ROSELIA D Ot K43.2 INCISIONAL HERNIA WITHOUT OBSTRUCTION OR 04/15/2018 BRANDT DO, ROSELIA D Ot K43.9 VENTRAL HERNIA WITHOUT OBSTRUCTION OR GA 05/09/2018 Starr Jeremy Final D53.9 Nutritional anemia, unspecified 05/09/2018 Starr Jeremy Final E78.5 Hyperlipidemia, unspecified 05/09/2018 Starr Jeremy Final E86.1 Hypovolemia 05/09/2018 Starr Jeremy Final I12.9 Hypertensive chronic kidney disease with stage 1 through stage 4 chronic ki 05/09/2018 Starr Jeremy Final I65.29 Occlusion and stenosis of unspecified carotid artery 05/09/2018 Starr Jeremy Final I69.959 Hemiplegia and hemiparesis following unspecified cerebrovascular disease af 05/09/2018 Starr Jeremy Final K21.9 Gastro-esophageal reflux disease without esophagitis 05/09/2018 Starr Jeremy Admitting K43.2 Incisional hernia without obstruction or gangrene 05/09/2018 Starr Jeremy Final K66.0 Peritoneal adhesions (postprocedural) (postinfection) 05/09/2018 Starr Jeremy Final N18.2 Chronic kidney disease, stage 2 (mild) 05/09/2018 Starr Jeremy Final R56.9 Unspecified convulsions 05/09/2018 Starr Jeremy Final 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 05/09/2018 Starr Jeremy Final Z85.51 Personal history of malignant neoplasm of bladder 05/09/2018 Starr Jeremy Final Z86.73 Personal history of transient ischemic attack (TIA), and cerebral infarctio 05/09/2018 Starr Jeremy Final Z88.0 Allergy status to penicillin 05/09/2018 Starr Jeremy Final Z88.2 Allergy status to sulfonamides status 05/09/2018 Starr Jeremy Final Z88.5 Allergy status to narcotic agent status 05/09/2018 Starr Jeremy Final Z88.6 Allergy status to analgesic agent status 05/09/2018 Starr Jeremy Final Z88.8 Allergy status to other drugs, medicaments and biological substances status 05/09/2018 Starr Jeremy Final Z90.49 Acquired absence of other specified parts of digestive tract 05/09/2018 Starr Jeremy Final Z90.6 Acquired absence of other parts of urinary tract 05/09/2018 Starr Jeremy Final K43.2 Incisional hernia without obstruction or gangrene Procedures Code Description Performed By Performed On General S Jonathan Najera 05/20/2012 07961 INR (IN HOUSE) 05/20/2012 51531 INR (IN HOUSE) 05/20/2012 18922 BONE DENSITY, DEXA 06/01/2012 General S Gilbert Schultz 08/11/2012 91415 ROUTINE VENIPUNCTURE 09/23/2012 77983 INR (IN HOUSE) 09/23/2012 57119 BMP 09/23/2012 [id number] GFR CALC (RESULT ONLY) 09/23/2012 23420 DILANTIN 09/23/2012 Otolaryng Roldan Hidalgo 09/24/2012 11203 DEXA BONE DENSITY, AXIAL 12/02/2012 27884 INR (IN HOUSE) 12/02/2012 J3420 B12 VITAMIN INJECTION 12/02/2012 99491 THERAPUTIC INJ SQ/IM 12/02/2012 72324 INR (IN HOUSE) 01/22/2013 General S Nick Oneill 02/16/2013 67734 PT/INR 07/27/2013 Podiatry Casie Arriaga 08/27/2013 04756 XRAY FOOT LEFT COMP MIN 3 VIEWS 01/01/2014 17774 DEBRIDE NAIL 1-5 05/14/2014 [id number] Release Peritoneum, Open Approach 04/24/2018 Results Test Result Range PT panel in [...] culture - 09/19/17 03:55 Bacterial urine culture [id number] NRG COLONY COUNT 10,000/ML - 100,000/ML NRG FTX;REPORTABLE SENSITIVITIES REPORTED 09/21 12:33 NRG URINE CULTURE RESULTS PLUS NRG FREE TEXT ENTRY 3 MIXED GRAM POSITIVE JAY [facility] Bacterial susceptibility panel - 09/19/17 03:55 [...] test by minimum inhibitory concentration - [facility] Bacterial susceptibility panel - 09/19/17 03:55 [...] susceptibility test by minimum inhibitory concentration - NR Glucose NPT - 04/24/18 13:10 Glucose NPT 92 mg/dL 70-100 CBC With Platelet No Differential - 04/24/18 14:26 HCT 33.0 % 37.0-47.0 HGB 10.9 g/dL 12.0-16.0 MCH 31.9 pg 27.0-32.0 MCHC 33.0 g/dL 32.0-36.0 MCV 96.5 fL 82.0-99.0 MPV 9.3 fL 9.4-12.4 Platelet Count 173 K/uL 150-400 RBC 3.42 10*6/uL 4.00-5.20 RDW 14.2 % 11.5-14.5 WBC 2.8 K/uL 4.8-10.8 Basic Metabolic Panel (BMP) - 04/24/18 14:26 Anion Gap 4 mEq/L 3-20 BUN 9 mg/dL 4-20 Calcium 8.6 mg/dL 8.6-10.0 Chloride 109 mEq/L 99-109 CO2 23 mEq/L 22-32 Creatinine 0.84 mg/dL 0.44-1.03 Glucose 92 mg/dL 70-100 Potassium 3.8 mEq/L 3.6-5.1 Sodium 136 mEq/L 136-144 eGFR - 04/24/18 14:26 eGFR >60 mL/min >60 Protime (INR) - 04/24/18 14:26 INR 0.9 NA 0.9-1.2 Infection Control Panel (Source) - 04/24/18 17:35 Hepatitis B Surface Antigen Negative Negative Hepatitis C Total Antibody Negative Negative HIV 1/2 Antibody Rapid Screen Nonreactive NA Nonreactive HIV-1 Antigen Rapid Screen Nonreactive NA Nonreactive CBC With Platelet No Differential - 04/25/18 07:24 HCT 33.2 % 37.0-47.0 HGB 11.1 g/dL 12.0-16.0 MCH 32.9 pg 27.0-32.0 MCHC 33.4 g/dL 32.0-36.0 MCV 98.5 fL 82.0-99.0 MPV 11.0 fL 9.4-12.4 Platelet Count 270 K/uL 150-400 RBC 3.37 10*6/uL 4.00-5.20 RDW 14.4 % 11.5-14.5 WBC 7.8 K/uL 4.8-10.8 Magnesium - 04/25/18 07:24 Magnesium 1.8 mg/dL 1.8-2.5 Renal Function Panel - 04/25/18 07:24 Albumin 3.3 g/dL 3.5-4.8 Anion Gap 7 mEq/L 3-20 BUN 9 mg/dL 4-20 Calcium 8.5 mg/dL 8.6-10.0 Chloride 110 mEq/L 99-109 CO2 22 mEq/L 22-32 Creatinine 0.89 mg/dL 0.44-1.03 Glucose 154 mg/dL 70-100 Phosphorus 3.2 mg/dL 2.4-4.7 Potassium 4.1 mEq/L 3.6-5.1 Sodium 139 mEq/L 136-144 eGFR - 04/25/18 07:24 eGFR >60 mL/min >60 CBC With Platelet No Differential - 04/26/18 04:40 HCT 29.6 % 37.0-47.0 HGB 9.5 g/dL 12.0-16.0 MCH 31.8 pg 27.0-32.0 MCHC 32.1 g/dL 32.0-36.0 MCV 99.0 fL 82.0-99.0 MPV 9.9 fL 9.4-12.4 Platelet Count 181 K/uL 150-400 RBC 2.99 10*6/uL 4.00-5.20 RDW 14.6 % 11.5-14.5 WBC 8.4 K/uL 4.8-10.8 Renal Function Panel - 04/26/18 04:40 Albumin 2.9 g/dL 3.5-4.8 Anion Gap 4 mEq/L 3-20 BUN 9 mg/dL 4-20 Calcium 8.4 mg/dL 8.6-10.0 Chloride 108 mEq/L 99-109 CO2 24 mEq/L 22-32 Creatinine 0.71 mg/dL 0.44-1.03 Glucose 105 mg/dL 70-100 Phosphorus 2.3 mg/dL 2.4-4.7 Potassium 4.0 mEq/L 3.6-5.1 Sodium 136 mEq/L 136-144 eGFR - 04/26/18 04:40 eGFR >60 mL/min >60 CBC With Platelet No Differential - 04/27/18 05:38 HCT 25.8 % 37.0-47.0 HGB 8.3 g/dL 12.0-16.0 MCH 32.3 pg 27.0-32.0 MCHC 32.2 g/dL 32.0-36.0 MCV 100.4 fL 82.0-99.0 MPV 9.8 fL 9.4-12.4 Platelet Count 158 K/uL 150-400 RBC 2.57 10*6/uL 4.00-5.20 RDW 14.4 % 11.5-14.5 WBC 5.7 K/uL 4.8-10.8 Protime (INR) - 04/27/18 05:38 INR 1.1 NA 0.9-1.2 Renal Function Panel - 04/27/18 05:38 Albumin 2.6 g/dL 3.5-4.8 Anion Gap 3 mEq/L 3-20 BUN 20 mg/dL 4-20 Calcium 8.4 mg/dL 8.6-10.0 Chloride 107 mEq/L 99-109 CO2 24 mEq/L 22-32 Creatinine 0.79 mg/dL 0.44-1.03 Glucose 106 mg/dL 70-100 Phosphorus 1.7 mg/dL 2.4-4.7 Potassium 3.8 mEq/L 3.6-5.1 Sodium 134 mEq/L 136-144 eGFR - 04/27/18 05:38 eGFR >60 mL/min >60 Hemoglobin and Hematocrit - 04/27/18 16:16 HCT 26.1 % 37.0-47.0 HGB 8.4 g/dL 12.0-16.0 CBC With Platelet No Differential - 04/28/18 05:53 HCT 23.0 % 37.0-47.0 HGB 7.7 g/dL 12.0-16.0 MCH 33.6 pg 27.0-32.0 MCHC 33.5 g/dL 32.0-36.0 MCV 100.4 fL 82.0-99.0 MPV 10.3 fL 9.4-12.4 Platelet Count 264 K/uL 150-400 RBC 2.29 10*6/uL 4.00-5.20 RDW 14.6 % 11.5-14.5 WBC 4.2 K/uL 4.8-10.8 Renal Function Panel - 04/28/18 05:53 Albumin 2.3 g/dL 3.5-4.8 Anion Gap 3 mEq/L 3-20 BUN 17 mg/dL 4-20 Calcium 8.1 mg/dL 8.6-10.0 Chloride 110 mEq/L 99-109 CO2 25 mEq/L 22-32 Creatinine 0.77 mg/dL 0.44-1.03 Glucose 96 mg/dL 70-100 Phosphorus 3.2 mg/dL 2.4-4.7 Potassium 3.4 mEq/L 3.6-5.1 Sodium 138 mEq/L 136-144 eGFR - 04/28/18 05:53 eGFR >60 mL/min >60 Protime (INR) - 04/28/18 05:53 INR 1.4 NA 0.9-1.2 CBC With Platelet No Differential - 04/29/18 08:01 HCT 25.1 % 37.0-47.0 HGB 8.2 g/dL 12.0-16.0 MCH 32.5 pg 27.0-32.0 MCHC 32.7 g/dL 32.0-36.0 MCV 99.6 fL 82.0-99.0 MPV 9.3 fL 9.4-12.4 Platelet Count 193 K/uL 150-400 RBC 2.52 10*6/uL 4.00-5.20 RDW 14.3 % 11.5-14.5 WBC 3.9 K/uL 4.8-10.8 Protime (INR) - 04/29/18 08:01 INR 1.7 NA 0.9-1.2 Renal Function Panel - 04/29/18 08:01 Albumin 2.3 g/dL 3.5-4.8 Anion Gap 4 mEq/L 3-20 BUN 15 mg/dL 4-20 Calcium 8.2 mg/dL 8.6-10.0 Chloride 109 mEq/L 99-109 CO2 25 mEq/L 22-32 Creatinine 0.65 mg/dL 0.44-1.03 Glucose 154 mg/dL 70-100 Phosphorus 1.4 mg/dL 2.4-4.7 Potassium 3.4 mEq/L 3.6-5.1 Sodium 138 mEq/L 136-144 eGFR - 04/29/18 08:01 eGFR >60 mL/min >60 Encounters ACCT No. Visit Date/Time Discharge Status Pt. Type Provider Facility Loc./Unit Complaint [id number] 07/07/2014 16:42:00 07/07/2014 23:59:59 CLS Outpatient IGNACIA CARRERO, NAHOMY [id number] 07/02/2014 09:57:00 07/02/2014 23:59:59 CLS Outpatient SATYA DPM, CASIE [id number] 05/27/2014 15:44:00 05/27/2014 23:59:59 CLS Outpatient NAHOMY BETH MD [id number] 05/14/2014 09:51:00 05/14/2014 23:59:59 CLS Outpatient SATYA DPM, CASIE [id number] 03/12/2014 09:45:00 03/12/2014 23:59:59 CLS Outpatient SATYA DPM, CASIE [id number] 03/04/2014 09:43:00 03/04/2014 23:59:59 CLS Outpatient NAHOMY BETH MD [id number] 01/01/2014 09:05:00 01/01/2014 23:59:59 CLS Outpatient NAIN HARO DO [id number] 01/01/2014 09:05:00 01/01/2014 23:59:59 CLS Outpatient NAIN HARO DO [id number] 10/29/2013 13:35:00 10/29/2013 23:59:59 CLS Outpatient NAHOMY BETH MD [id number] 08/27/2013 15:00:00 08/27/2013 23:59:59 CLS Outpatient NAHOMY BETH MD [id number] 07/30/2013 15:19:00 07/30/2013 23:59:59 CLS Outpatient NAHOMY BETH MD [id number] 03/02/2013 13:56:00 03/02/2013 23:59:59 CLS Outpatient NAHOMY BETH MD [id number] 09/23/2012 11:45:00 09/23/2012 23:59:59 CLS Outpatient NAHOMY BETH MD [id number] 05/20/2012 09:24:00 05/20/2012 23:59:59 [place] [id number] 04/15/2012 15:12:00 04/15/2012 23:59:59 CLS Outpatient NAIN HARO DO [id number] 02/09/2013 07:55:00 Document Registration [id number] 02/05/2013 14:58:00 Document Registration [id number] 12/02/2012 09:33:00 Document Registration [id number] 12/02/2012 09:33:00 Document Registration [id number] 09/23/2012 11:45:00 Document Registration [id number] 07/04/2018 09:00:00 ACT Outpatient NAHOMY BETH MD [facility] [id number] 03/10/2018 12:40:00 03/10/2018 23:59:59 CLS Outpatient ROSELIA BRANDT DO [facility] RAD HERNIA K43.2 [id number] 12/17/2017 10:28:00 12/17/2017 23:59:59 CLS Outpatient KOREY BYERS MD [facility] RAD RENAL FAILURE [id number] 12/04/2017 16:02:00 12/04/2017 23:59:59 CLS Preadmit KOREY BYERS MD [facility] RAD RENAL FALURE [id number] 09/19/2017 04:45:00 09/19/2017 12:45:00 DIS Inpatient JIMMY SPAULDING MD [facility] 4TH UTI-SZ> 30 MINS, SUBTHERAPEUTIC DILANTIN LEVEL, [id number] 09/04/2017 10:08:00 09/04/2017 23:59:59 CLS Outpatient NAHOMY BETH MD [facility] RAD SCREENING [id number] 07/02/2017 06:41:00 07/02/2017 14:50:00 DIS Outpatient VICKI CARRERO FACCYORDAN FACP CCDS [facility] CATH AORTIC VALVE REGURG [id number] 06/13/2017 07:02:00 06/13/2017 23:59:59 CLS Outpatient ROCIO FIELD FO[employer] SERVICE AMBASSADOR [facility] CARD R07.89 [id number] 06/12/2017 09:37:00 06/12/2017 23:59:59 CLS Outpatient ROCIO FIELD FO[employer] SERVICE AMBASSADOR [facility] CARD R07.89 CHEST PAIN [id number] 06/07/2017 17:12:00 06/07/2017 23:59:59 CLS Outpatient NAHOMY BETH MD [facility] LABNPT [id number] 05/10/2017 13:20:00 05/10/2017 15:10:00 DIS Outpatient NAHOMY BETH MD [facility] OSTEOPOROSIS [id number] 04/18/2017 08:29:00 04/18/2017 23:59:59 CLS Outpatient NAHOMY BETH MD [facility] RAD M81.0 AGE RELATED OSTEOPOROSIS [id number] 04/07/2017 08:20:00 04/07/2017 23:59:59 CLS Outpatient NAHOMY BETH MD [facility] LABT [id number] 02/15/2017 07:26:00 02/15/2017 10:30:00 DIS Outpatient ALLISON BELLA MD [facility] ENDO RECTAL BLEEDING, ANEMIA , VENTRAL HERNIA [id number] 02/13/2017 08:20:00 02/13/2017 23:59:59 CLS Preadmit NAHOMY BETH MD [facility] RAD M81.0 [id number] 02/08/2017 05:55:00 02/08/2017 12:30:00 DIS Outpatient ALLISON BELLA MD [facility] PREOP RECTAL BLEEDING ANEMIA , VENTRAL HERNIA [id number] 12/03/2016 10:15:00 12/03/2016 23:59:59 CLS Outpatient KOREY BYERS MD [facility] RAD RENAL INSUFFICIENCY [id number] 09/14/2016 10:57:00 09/14/2016 23:59:59 CLS Outpatient NAHOMY BETH MD [facility] LABT I25.10, I25.810 [id number] 08/23/2016 11:47:00 08/23/2016 23:59:59 CLS Outpatient NAHOMY BETH MD [facility] RAD SCREENING [id number] 07/20/2016 00:09:00 07/20/2016 23:59:59 CLS Preadmit NAHOMY BETH MD [facility] POOR DAVID ACCESS [id number] 05/16/2016 12:41:00 07/19/2016 00:01:00 DIS Outpatient NAHOMY BETH MD [facility] POOR DAVID ACCESS [id number] 04/06/2016 12:35:00 04/12/2016 00:01:00 DIS Outpatient NAHOMY BETH MD [facility] POOR DAVID ACCESS [id number] 12/30/2015 12:35:00 01/05/2016 00:01:00 DIS Outpatient NAHOMY BETH MD [facility] POOR DAVID ACCESS [id number] 11/17/2015 11:14:00 11/17/2015 23:59:59 CLS Outpatient KOREY BYERS MD [facility] RAD RENAL FAILURE [id number] 09/23/2015 12:46:00 09/29/2015 00:01:00 DIS Outpatient NAHOMY BETH MD [facility] POOR DAVID ACCESS [id number] 09/02/2015 15:34:00 09/02/2015 19:28:00 DIS Emergency ALLISON THOMPSON MD [facility] ER L LEG PAIN [id number] 06/20/2015 12:42:00 06/23/2015 00:01:00 DIS Outpatient NAHOMY BETH MD [facility] POOR DAVID ACCESS [id number] 06/03/2015 01:11:00 06/03/2015 02:20:00 DIS Emergency JEANETTE KENDRICK DO [facility] ER FALL-SWOLLEN ANKLE [id number] 04/21/2015 11:26:00 04/21/2015 23:59:59 CLS Outpatient NAHOMY BETH MD [facility] RAD ABD PAIN AND PELVIC [id number] 03/11/2015 12:33:00 03/23/2015 00:01:00 DIS Outpatient NAHOMY BETH MD [facility] POOR DAVID ACCESS [id number] 02/25/2015 12:48:00 02/25/2015 23:59:59 CLS Outpatient ROCIO FIELD [facility] LAB HYPERLIPIDEMIA [id number] 02/11/2015 12:40:00 02/17/2015 00:01:00 DIS Outpatient NAHOMY BETH MD [facility] POOR DAVID ACCESS [id number] 11/05/2014 11:39:00 11/11/2014 00:01:00 DIS Outpatient NAHOMY BETH MD [facility] POOR DAVID ACCESS [id number] 07/09/2014 13:07:00 08/05/2014 00:01:00 DIS Outpatient NAHOMY BETH MD [facility] POOR DAVID ACCESS [id number] 07/19/2014 08:00:00 07/19/2014 23:59:59 CLS Preadmit SATYA DPM, CASIE Q [facility] BILATERAL HAMMERTOE [id number] 07/13/2014 10:24:00 07/13/2014 23:59:59 CLS Outpatient SATYA DPM, CASIE Q [facility] PREOP BILATERAL HAMMERTOE [id number] 06/30/2014 11:00:00 06/30/2014 23:59:59 CLS Preadmit VICKI CARRERO FACMariaelena, ALI FACP CCDS [facility] CARD PALPITATIONS, HTN,CP [id number] 04/26/2014 07:08:00 06/29/2014 00:01:00 DIS Outpatient VICKI CARRERO FACC, ALI FACP CCDS [facility] CARD PALPITATIONS, HTN,CP [id number] 05/18/2014 09:04:00 05/18/2014 23:59:59 CLS Outpatient VICKI CARRERO FACMariaelena, ALI FACP CCDS [facility] CATH PALPITATIONS, DIZZINESS [id number] 05/13/2014 11:05:00 05/13/2014 23:59:59 CLS Outpatient VICKI CARRERO FACMariaelena, ALI FACP CCDS [facility] RAD CAROTID ARTERY STENOSIS [id number] 04/23/2014 13:06:00 04/29/2014 00:01:00 DIS Outpatient NAHOMY BETH MD [facility] POOR DAVID ACCESS [id number] 04/26/2014 11:35:00 04/26/2014 23:59:59 CLS Outpatient VICKI CARRERO FACC, ALI FACP CCDS [facility] CARD PALPITATIONS, CP,CVA,DVT [id number] 02/26/2014 08:48:00 02/26/2014 23:59:59 CLS Outpatient NICK ONEILL MD [facility] RAD INCOMPLETE COLONOSCOPY [id number] 02/25/2014 07:13:00 02/25/2014 12:01:00 DIS Outpatient NICK ONEILL MD [facility] ANEMIA,DIARRHEA [id number] 02/24/2014 07:30:00 02/24/2014 23:59:59 CLS Outpatient NICK ONEILL MD [facility] PREOP ANEMIA [id number] 01/29/2014 12:56:00 01/29/2014 23:59:59 CLS Outpatient ROCIO FIELD [facility] LAB CVA,DVT [id number] 01/15/2014 12:34:00 01/21/2014 00:01:00 DIS Outpatient MAYELIN ETIENNE MD [facility] POOR DAVID ACCESS [id number] 12/16/2013 07:16:00 12/16/2013 11:02:00 DIS Emergency KRISTY WALDRON MD [facility] ER UNRESPONSIVE [id number] 11/12/2013 13:11:00 11/12/2013 23:59:59 CLS Outpatient KOREY BYERS MD [facility] RAD RENAL INSUFFICIENCY [id number] 10/09/2013 12:57:00 10/21/2013 00:01:00 DIS Outpatient MAYELIN ETIENNE MD [facility] POOR DAVID ACCESS [id number] 07/24/2013 18:12:00 07/24/2013 22:39:00 DIS Emergency KRISTY WALDRON MD [facility] ER SEIZURE [id number] 07/03/2013 06:36:00 07/03/2013 23:59:59 CLS Outpatient NICK ONEILL MD [facility] POOR VENOUS ACCESS [id number] 06/29/2013 08:37:00 06/29/2013 23:59:59 CLS Outpatient NICK ONEILL MD [facility] PREOP POOR VENOUS ACCESS [id number] 05/11/2013 09:36:00 06/16/2013 00:01:00 DIS Outpatient MAYELIN ETIENNE MD [facility] POOR DAVID ACCESS [id number] 04/09/2013 10:02:00 04/09/2013 23:59:59 CLS Outpatient EMIR ROCIO Rohith BUSTAMANTE [facility] RAD CAROTID ARTERIAL DISEASE,IV CONTRAST [id number] 03/18/2013 09:00:00 03/18/2013 23:59:59 CLS Outpatient NAHOMY BETH MD [facility] LAB HIGH RISK MEDICATION,CRF [id number] 12/11/2012 10:16:00 03/11/2013 00:01:00 DIS Outpatient MAYELIN ETIENNE MD [facility] POOR DAVID ACCESS [id number] 03/04/2013 05:55:00 03/06/2013 14:10:00 DIS Outpatient NICK ONEILL MD [facility] VENTRAL HERNIA/NO VENOUS ACCESS [id number] 02/27/2013 09:45:00 02/27/2013 23:59:59 CLS Outpatient VICKI CARRERO FACCYORDAN FACP CCDS [facility] RAD CVD [id number] 02/27/2013 09:01:00 02/27/2013 23:59:59 CLS Outpatient NICK ONEILL MD [facility] PREOP VENTRAL HERNIA/NO VENOUS ACCESS [id number] 02/06/2013 09:51:00 02/08/2013 16:10:00 DIS Inpatient NAHOMY BETH MD [facility] 4TH ANEMIA [id number] 02/03/2013 20:27:00 02/03/2013 23:24:00 DIS Emergency DEEPTI MARTINEZ MD [facility] ER INJ FROM FALL [id number] 01/31/2013 19:00:00 01/31/2013 22:08:00 DIS Emergency DEEPTI MARTINEZ MD [facility] ER FALL [id number] 01/09/2013 23:26:00 01/10/2013 11:46:00 DIS Inpatient NAHOMY BETH MD [facility] ICU CHEST PAIN [id number] 12/11/2012 09:43:00 12/11/2012 23:59:59 CLS Outpatient JUANLUCIANA [facility] LAB CAD [id number] 10/28/2012 08:31:00 10/28/2012 14:30:00 DIS Outpatient ARUN HERNANDEZ MD [facility] SDC IV ACCESS [id number] 10/22/2012 10:27:00 10/22/2012 23:59:59 CLS Outpatient ARUN HERNANDEZ MD [facility] PREOP IV ACCESS [id number] 02/04/2018 17:30:00 Document Registration [id number] 06/03/2015 01:23:00 Document Registration [id number] 06/03/2015 01:22:00 Document Registration [id number] 06/03/2015 01:22:00 Document Registration [id number] 09/04/2012 09:02:00 Document Registration [id number] 08/14/2012 14:39:00 Document Registration [id number] 08/14/2012 14:25:00 Document Registration [id number] 06/05/2012 10:08:00 Document Registration [id number] 05/20/2012 09:35:00 Document Registration [id number] 03/24/2012 10:10:00 Document Registration [id number] 03/12/2012 13:12:00 Document Registration [id number] 03/06/2012 14:34:00 Document Registration [id number] 02/04/2012 12:57:00 Document Registration [id number] 10/11/2011 09:50:00 Document Registration [id number] 09/04/2011 10:49:00 Document Registration [id number] 08/01/2011 09:27:00 Document Registration [id number] 07/27/2011 06:06:00 Document Registration [id number] 07/26/2011 13:02:00 Document Registration [id number] 07/23/2011 05:35:00 Document Registration [id number] 07/20/2011 15:19:00 Document Registration [id number] 03/28/2011 12:44:00 Document Registration [id number] 12/06/2010 12:32:00 Document Registration [id number] 09/04/2010 11:27:00 Document Registration [id number] 08/29/2010 11:50:00 Document Registration [id number] 08/23/2010 11:11:00 Document Registration [id number] 08/16/2010 13:00:00 Document Registration [id number] 06/22/2010 13:00:00 Document Registration [id number] 05/17/2010 12:45:00 Document Registration [id number] 05/02/2010 11:11:00 Document Registration [id number] 03/09/2010 13:06:00 Document Registration [id number] 02/17/2010 14:05:00 Document Registration [id number] 01/10/2010 13:36:00 Document Registration [id number] 12/13/2009 09:59:00 Document Registration [id number] 05/20/2007 15:19:00 Document Registration [id number] 04/24/2018 12:10:00 04/29/2018 14:55:00 DIS Inpatient Starr Jeremy [facility] F7SE hernia - open recurrent incisional hernia repair with mesh [id number] 04/30/2018 05:19:34 Document Registration [id number] 04/28/2018 05:17:38 Document Registration [id number] 04/27/2018 05:18:04 Document Registration [id number] 04/26/2018 05:21:30 Document Registration [id number] 04/25/2018 05:22:39 Document Registration [id number] 04/23/2018 05:19:30 Document Registration [id number] 03/26/2015 05:36:16 ACT Document Registration
[2018-07-05] MEDS ORDERED: NS IV 1000 ML 1,000 ML IV ONE (16:12)
[2018-07-05] MEDS ORDERED: cefTRIAXone FOR IV USE 1,000 MG in NS (IVPB) 50 ML IV ONE (16:30)
[2018-07-05 16:36] VITALS: BP 114/48
--- NOTE | 2018-07-05 17:14 | NUR ---
REPORT FROM CHIEF DIGITAL MEDIA OFFICER GIVEN TO THIS RN
[2018-07-05 17:20] VITALS: BP 127/75
--- NOTE | 2018-07-05 17:45 | NUR ---
ALEKSEY GARZA admitted to room 429-1, with an admitting diag AMS, BRADYCARDIA, UTI, on 07/05/18 from ER via [facility], accompanied by ER STAFF.ALEKSEY GARZA introduced to surroundings, call light, bed controls, phone, TV, temperature control, lights, meal times, smoking policy, visitor policy, side rail policy, bathrooms and showers. Patient Rights given to patient in the handbook. ALEKSEY GARZA verbalizes understanding that [facility] is not responsible for the loss or damage to any personal effects or valuables that are kept in the patients posession during their hospitalization. The following Patient Care Plans were discussed with the PT: Discharge Planning, INFECTION, PAIN, ALT URINARY ELIMINATION, AND HIGH RISK INJURY. ALEKSEY GARZA verbalizes understanding of Interdisciplinary Patient Education. Patient and/or family were informed about the Rapid Response Team and its purpose. PT CAME TO FLOOR FROM ER WITH Mayi CASTELLANOS ACCESSED AND NS RUNNING IN IT -- NOTE THAT STAFF ON FLOOR FOUND THAT PT HAD A NITRO PATACH ON FROM NC AND IT WAS REMOVED AND WASTED
[2018-07-05] MEDS ORDERED: ONDANSETRON 4 MG/2 ML (SDV) Z0FRAN IV PRN (18:15)
--- OUTSIDE RECORDS SUMMARY | 2018-07-05 18:16 | XMS REPORT | Continuity of Care Document ---
Author Author [facility] Address Unknown Phone Unavailable Allergies Active Description Code Type Severity Reaction Onset Reported/Identified Relationship to Patient Clinical Status Yes acetaminophen [id number] Drug Allergy Unknown N/A 03/18/2006 Yes ALL FISH ALL FISH Unknown N/A 03/18/2006 Yes amitriptyline [id number] Drug Allergy Unknown N/A 03/18/2006 Yes ANITHISTAMINES ANITHISTAMINES Unknown N/A 03/18/2006 Yes aspirin [id number] Drug Allergy Unknown N/A 03/18/2006 Yes Caramiphen [id number] Drug Allergy Unknown N/A 03/18/2006 Yes carbamazepine [id number] Drug Allergy Unknown N/A 03/18/2006 Yes clarithromycin [id number] Drug Allergy Unknown N/A 03/18/2006 Yes codeine [id number] Drug Allergy Unknown N/A 03/18/2006 Yes COFFEE COFFEE Unknown N/A 03/18/2006 Yes diazepam [id number] Drug Allergy Unknown N/A 03/18/2006 Yes diphenhydramine [id number] Drug Allergy Unknown N/A 03/18/2006 Yes doxycycline [id number] Drug Allergy Unknown N/A 03/18/2006 Yes egg [id number] Drug Allergy Unknown N/A 03/18/2006 Yes fish oil [id number] Drug Allergy Unknown N/A 03/18/2006 Yes flavoxate [id number] Drug Allergy Unknown N/A 03/18/2006 Yes hydrocodone [id number] Drug Allergy Unknown N/A 03/18/2006 Yes hydroxyzine [id number] Drug Allergy Unknown N/A 03/18/2006 Yes hyoscyamine [id number] Drug Allergy Unknown N/A 03/18/2006 Yes imipramine [id number] Drug Allergy Unknown N/A 03/18/2006 Yes levofloxacin [id number] Drug Allergy Unknown N/A 03/18/2006 Yes Liver Extract [id number] Drug Allergy Unknown N/A 03/18/2006 Yes lorazepam [id number] Drug Allergy Unknown N/A 03/18/2006 Yes milk [id number] Drug Allergy Unknown N/A 03/18/2006 Yes nitrofurantoin [id number] Drug Allergy Unknown N/A 03/18/2006 Yes oxybutynin [id number] Drug Allergy Unknown N/A 03/18/2006 Yes Penicillins [id number] Drug Allergy Unknown N/A 03/18/2006 Yes pentazocine [id number] Drug Allergy Unknown N/A 03/18/2006 Yes phenazopyridine [id number] Drug Allergy Unknown N/A 03/18/2006 Yes phenylpropanolamine [id number] Drug Allergy Unknown N/A 03/18/2006 Yes procaine [id number] Drug Allergy Unknown N/A 03/18/2006 Yes promethazine [id number] Drug Allergy Unknown N/A 03/18/2006 Yes propoxyphene [id number] Drug Allergy Unknown N/A 03/18/2006 Yes pseudoephedrine [id number] Drug Allergy Unknown N/A 03/18/2006 Yes Sulfa (Sulfonamide Antibiotics) [id number] Drug Allergy Unknown N/A 2005 Yes tetracycline [id number] Drug Allergy Unknown N/A 03/18/2006 Yes tramadol [id number] Drug Allergy Unknown N/A 03/18/2006 Yes zinc acetate [id number] Drug Allergy Unknown N/A 03/18/2006 Yes aspirin [...] Drug Allergy 03/02/2011 Yes coffee (Coffea arabica) [id number] Drug Allergy Unknown N/A 09/19/2017 Yes Fish Containing Products [id number] Drug Allergy Unknown N/A 09/19/2017 Yes SPINACH [id number] Drug Allergy Unknown N/A 09/19/2017 Yes aspirin [...] Oral, q4hr, PRN: Pain Severe (7-10) HYDROmorphone(HYDROmorphone DEVELOPER PROGRAMMER 30 mg) 30 mL 04/24/2018 04/26/2018 IV 30 mg DEVELOPER PROGRAMMER, IV, Stop: 06/23/18 17:06:00 MANAGER OF CASE metoprolol(metoprolol tartrate 25 mg oral tablet) 1 [...] NAHOMY BETH MD 356.9 NEUROPATHY 11/18/2009 NAHOMY EBTH MD 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 [...] NAIN K 781.0 ABNORMAL INVOLUNTARY MOVEMENTS 12/01/2009 HRAO DO, NAIN K 844.0 Sprains And Strains [...] 459.81 VENOUS (PERIPHERAL) INSUFFICIENCY, UNSPECIFIED 01/09/2010 NAIN AHRO DO 585.9 CHRONIC KIDNEY DISEASE, UNSPECIFIED 01/09/2010 IGNACIA CARRERO, NAHOMY 459.81 VENOUS (PERIPHERAL) INSUFFICIENCY, UNSPECIFIED 01/09/2010 IGNACIA CARRERO, NAHOMY Hurd.9 CHRONIC KIDNEY DISEASE, UNSPECIFIED 01/09/2010 NAHOMY BETH MD 459.81 VENOUS (PERIPHERAL) INSUFFICIENCY, UNSPECIFIED 01/09/2010 NAHOMY BETH MD.9 CHRONIC KIDNEY DISEASE, UNSPECIFIED 01/09/2010 HARO NAIN DOWELL K 459.81 VENOUS (PERIPHERAL) INSUFFICIENCY, UNSPECIFIED 01/09/2010 [...] K 599.0 Urinary Tract Infection 02/23/2010 IGNACIA CARRERO, [...] 789.00 Abdominal Pain Unspecified Site 04/24/2010 NAHOMY BEHT MD 789.00 Abdominal Pain Unspecified Site 04/24/2010 [...] Abdominal Pain Unspecified Site 05/10/2011 SATYA DPM, CASEI 789.00 Abdominal Pain Unspecified Site 05/10/2011 SATYA [...] Candidiasis Of Skin And Nails 09/25/2011 NAHOMY EBTH MD 112.3 Candidiasis Of Skin And Nails [...] CONVULSIONS 10/14/2011 Ot 414.01 CORONARY ATHEROSCLEROSIS OF [place] CORON 10/14/2011 Ot 891.0 OPEN WND KNEE [...] KRISTY Kennedy Ot 272.0 PURE HYPERCHOLESTEROLEM 12/16/2013 CHIVO CARRERO, KRISTY Kennedy Ot 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, UNSPECIFIED, [...] 596.54 NEUROGENIC BLADDER, NOT OTHERWISE SPECIF 12/16/2013 KRISYT WALDRON MD Ot 599.0 URIN TRACT INFECTION [...] V70.0 ROUTINE GENERAL MEDICAL EXAMINATION AT A [facility] 07/09/2014 NAHOMY BETH MD [...] NAHOMY Moody Ot 459.81 03/18/2015 [facility] OPERATIONS COORDINATOR Ot 272.4 03/23/2015 IGNACIA CARRERO, NAHOMY Moody Ot 459.81 VENOUS INSUFFICIENCY NOS 03/25/2015 IGNACIA CARRERO, NAHOMY Moody Ot 459.81 03/25/2015 IGNACIA CARRERO, NAHOMY Moody Ot 459.81 03/25/2015 IGNACIA CARRERO, NAHOMY Moody Ot 459.81 03/28/2015 [facility] OPERATIONS COORDINATOR Ot 272.4 04/08/2015 IGNACIA CARRERO, NAHOMY Moody [...] ARUN M Ot V74.8 06/03/2015 LUCIANA MARTINEZ PHARMACY OPERATIONS COORDINATOR Ot 414.00 06/03/2015 LUCIANA MARTINEZ PHARMACY OPERATIONS COORDINATOR Ot 785.1 06/03/2015 NINO CARRERO, NICK S Ot 459.81 06/03/2015 NINO CARRERO, NICK S Ot 553.20 06/03/2015 NINO CARRERO, NICK S Ot V72.63 06/03/2015 NINO CARRERO, NICK S Ot V74.8 06/03/2015 VICKI CARRERO [facility], ALI FACP CCDS Ot 433.10 06/03/2015 [facility] OPERATIONS COORDINATOR Ot 433.10 06/03/2015 IGNACIA CARRERO, NAHOMY Moody Ot 585.9 06/03/2015 IGNACIA CARRERO, NAHOMY Moody Ot V58.69 06/03/2015 NINO CARRERO, NICK S Ot 996.74 06/03/2015 NINO CARRERO, NICK S Ot V58.61 06/03/2015 NINO CARRERO, NICK S Ot 459.81 06/03/2015 NINO CARRERO, NICK S Ot V72.84 06/03/2015 ZEESHAN CARRERO, KOREY Bernard Ot 593.9 06/03/2015 [facility] OPERATIONS COORDINATOR Ot 272.4 06/03/2015 [facility] OPERATIONS COORDINATOR Ot 403.90 06/03/2015 [facility] OPERATIONS COORDINATOR Ot 434.91 06/03/2015 [facility] OPERATIONS COORDINATOR Ot 453.40 06/03/2015 [facility] OPERATIONS COORDINATOR Ot 585.2 06/03/2015 [facility] FI[facility] L PHARMACY OPERATIONS COORDINATOR Ot V58.61 06/03/2015 NINO CARRERO, NICK S Ot V72.84 06/03/2015 NINO CARRERO, NICK S Ot 285.9 06/03/2015 VICKI CARRERO FACC, ALI FACP CCDS Ot 272.4 06/03/2015 VICKI LEBRONC, ALI FACP CCDS Ot 342.90 06/03/2015 VICKI CARRERO FACC, ALI FACP CCDS Ot 403.90 06/03/2015 VICKI CARRERO FACC, ALI FACP CCDS Ot 585.2 06/03/2015 VICKI CARRERO [facility], ALI FACP CCDS Ot 785.1 06/03/2015 VICKI MD FAC, ALI FACP CCDS Ot 786.50 06/03/2015 VICKI MD FAC, ALI FACP CCDS Ot V58.61 06/03/2015 VICKI MD FAC, ALI FACP CCDS Ot 433.10 06/03/2015 VICKI MD FAC, ALI FACP CCDS Ot 780.4 06/03/2015 VICKI MD [facility], ALI FACP CCDS Ot 780.79 06/03/2015 VICKI MD [facility], ALI FACP CCDS Ot 785.1 06/03/2015 VICKI MD [facility], ALI FACP CCDS Ot V58.61 06/03/2015 VICKI MD FAC, ALI FACP CCDS Ot V58.69 06/03/2015 VICKI MD FAC, ALI FACP CCDS Ot 785.1 06/03/2015 VICKI MD [facility], ALI FACP CCDS Ot 786.50 06/03/2015 SATYA DPM, CASIE Q Ot 735.4 06/03/2015 SATYA DPM, CASIE Q Ot V72.63 06/03/2015 SATYA DPM, CASIE Q Ot V74.8 06/03/2015 [facility] OPERATIONS COORDINATOR Ot 272.4 06/03/2015 IGNACIA CARRERO, NAHOMY Moody Ot I87.2 06/03/2015 IGNACIA CARRERO, NAHOMY Moody Ot R10.9 06/03/2015 IGNACIA CARRERO, NAHOMY Moody Ot R11.10 06/03/2015 JEANETTE KENDRICK DO Ot I69.954 HEMIPLGA FOL [facility] CEREBVASC DISEASE AFF 06/03/2015 JEANETTE KENDRICK DO Ot S80.11XA CONTUSION OF RIGHT LOWER LEG, INITIAL EN 06/03/2015 JEANETTE KENDRICK DO Ot S93.401A SPRAIN OF UNSPECIFIED LIGAMENT OF RIGHT 06/03/2015 JEANETTE KENDRICK DO Ot W05.0XXA FALL FROM NON-MOVING WHEELCHAIR, INITIAL 06/03/2015 JEANETTE KENDRICK DO Ot Y92.[address] IN [facility] NON-INSTITUT (PRIVATE 06/03/2015 JEANETTE KENDRICK DO [...] 09/02/2015 ALLISON THOMPSON MD Ot Z79.899 OTHER ELEMENTARY TEACHER (CURRENT) DRUG THERAPY 09/05/2015 ALLISON THOMPSON MD [...] JAY CARRERO, ALLISON Gonzalez Ot Z79.01 09/05/2015 JYA CARRERO, ALLISON Gonzalez Ot Z79.899 09/09/2015 IGNACIA [...] Ot I87.2 VENOUS INSUFFICIENCY (CHRONIC) (PERIPHER 01/16/2016 NHAOMY BETH MD Ot I87.2 VENOUS INSUFFICIENCY (CHRONIC) [...] (PERIPHER 05/04/2016 NAHOMY BETH MD Ot Z79.01 ELEMENTARY TEACHER (CURRENT) USE OF ANTICOAGULANT 05/15/2016 NAHOMY BETH MD Ot I87.2 VENOUS INSUFFICIENCY (CHRONIC) (PERIPHER 05/15/2016 NAHOMY BETH MD Ot Z79.01 PENITENTIARY (CURRENT) USE OF ANTICOAGULANT 05/16/2016 NAHOMY BETH MD Ot I87.2 VENOUS INSUFFICIENCY (CHRONIC) (PERIPHER 05/16/2016 NAHOMY BETH MD Ot Z79.01 PENITENTIARY (CURRENT) USE OF ANTICOAGULANT 05/28/2016 NAHOMY BETH MD Ot I87.2 VENOUS INSUFFICIENCY (CHRONIC) (PERIPHER 05/28/2016 NAHOMY BETH MD Ot Z79.01 ELEMENTARY TEACHER (CURRENT) USE OF ANTICOAGULANT 07/19/2016 NAHOMY BETH [...] NATIV 11/29/2016 Ot 414.01 CORONARY ATHEROSCLEROSIS OF [place] CORON 11/29/2016 Ot 585.9 CHRONIC KIDNEY DISEASE, [...] 11/29/2016 DAVID CARRERO, ARUN Geronimo Ot V72.81 [id number] CARDIOVASCULAR 11/29/2016 ARUN HERNANDEZ MD Ot V72.83 EXAM PRE-OPERATIVE NEC 11/29/2016 DAVID CARRERO, ARUN Geronimo Ot V74.8 SCREEN-BACTERIAL DIS NEC 11/29/2016 LUCIANA MARTINEZ PHARMACY OPERATIONS COORDINATOR Ot 414.00 CORON ATHEROSCLER NOS TYPE VESSEL, NATIV 11/29/2016 LUCIANA MARTINEZ PHARMACY OPERATIONS COORDINATOR Ot 785.1 PALPITATIONS 11/29/2016 NINO CARRERO, NICK [...] RENAL URETERAL DIS NOS 11/29/2016 [facility] OPERATIONS COORDINATOR Ot 272.4 HYPERLIPIDEMIA NEC/NOS 11/29/2016 [facility] OPERATIONS COORDINATOR Ot 403.90 HYPTNSV CHR KID DIS, UNSPEC, W CHR KD ST 11/29/2016 [facility] OPERATIONS COORDINATOR Ot 434.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 11/29/2016 [facility] OPERATIONS COORDINATOR Ot 453.40 ACUTE VENOUS EMBOLISM THROMBOSIS UNSP 11/29/2016 CRISTIANNERY OTEROHER [place] PHARMACY OPERATIONS COORDINATOR Ot 585.2 CHRONIC KIDNEY DISEASE, STAGE II (MILD) 11/29/2016 [facility] OPERATIONS COORDINATOR Ot V58.61 ANTICOAGULANTS,LT,CURRENT USE 11/29/2016 NICK ONEILL [...] V74.8 SCREEN-BACTERIAL DIS NEC 11/29/2016 [facility] OPERATIONS COORDINATOR Ot 272.4 HYPERLIPIDEMIA NEC/NOS 11/29/2016 NAHOMY BETH MD Ot R10.9 UNSPECIFIED ABDOMINAL PAIN 11/29/2016 NAHOMY BETH MD Ot R11.10 VOMITING, UNSPECIFIED 11/29/2016 KOREY BYERS MD Ot N19 UNSPECIFIED KIDNEY FAILURE 11/29/2016 NAHOMY BETH MD Ot I87.2 VENOUS INSUFFICIENCY (CHRONIC) (PERIPHER 11/29/2016 NAHOMY BETH MD Ot Z79.01 PENITENTIARY (CURRENT) USE OF ANTICOAGULANT 11/29/2016 NAHOMY BETH [...] AND URETER, UNSPECIFI 02/15/2017 JENA CARRERO, ALLISON Stevensno Ot D64.9 ANEMIA, UNSPECIFIED 02/15/2017 ALLISON BELLA [...] MD Ot I25.10 ATHSCL HEART DISEASE OF [place] CORONARY 06/12/2017 NAHOMY BETH MD Ot I25.10 ATHSCL HEART DISEASE OF [place] CORONARY 06/12/2017 NAHOMY BETH MD Ot I25.10 ATHSCL HEART DISEASE OF [place] CORONARY 06/13/2017 [facility] OPERATIONS COORDINATOR Ot E78.4 OTHER HYPERLIPIDEMIA 06/13/2017 [facility] OPERATIONS COORDINATOR Ot I10 ESSENTIAL (PRIMARY) HYPERTENSION 06/13/2017 [facility]ARM[facility] OPERATIONS COORDINATOR Ot I65.23 OCCLUSION AND STENOSIS OF [place] 06/13/2017 [facility] OPERATIONS COORDINATOR Ot R07.89 OTHER CHEST PAIN 07/02/2017 VICKI [...] CARRERO FACC, ALI FACP CCDS Ot Z79.01 ELEMENTARY TEACHER (CURRENT) USE OF ANTICOAGULANT 07/02/2017 VICKI CARRERO FACC, YORDAN FACP CCDS Ot Z79.899 OTHER PENITENTIARY (CURRENT) DRUG THERAPY 07/02/2017 VICKI CARRERO FACC, ALI FACP CCDS Ot Z86.718 PERSONAL HISTORY OF OTHER VENOUS THROMBO 07/03/2017 [facility] OPERATIONS COORDINATOR Ot E78.4 OTHER HYPERLIPIDEMIA 07/03/2017 [facility] OPERATIONS COORDINATOR Ot I10 ESSENTIAL (PRIMARY) HYPERTENSION 07/03/2017 [facility] PHARM[facility] OPERATIONS COORDINATOR Ot I65.23 OCCLUSION AND STENOSIS OF [place] 07/03/2017 [facility]ARM[facility] OPERATIONS COORDINATOR Ot R07.89 OTHER CHEST PAIN 07/03/2017 IGNACIA CARRERO, NAHOMY Moody Ot I25.10 ATHSCL HEART DISEASE OF [place] CORONARY 07/04/2017 VICKI CARRERO FACC, ALI FACP [...] CARRERO FACC, ALI FACP CCDS Ot Z79.01 ELEMENTARY TEACHER (CURRENT) USE OF ANTICOAGULANT 07/04/2017 VICKI CARRERO FACC, YORDAN FACP CCDS Ot Z79.899 OTHER PENITENTIARY (CURRENT) DRUG THERAPY 07/04/2017 VICKI CARRERO FACC, ALI FACP CCDS Ot Z86.718 PERSONAL HISTORY OF OTHER VENOUS THROMBO 07/05/2017 [facility]ARM[facility] OPERATIONS COORDINATOR Ot E78.4 OTHER HYPERLIPIDEMIA 07/05/2017 [facility] PHARMACY OPERATIONS COORDINATOR Ot I10 ESSENTIAL (PRIMARY) HYPERTENSION 07/05/2017 [facility] PHARMACY OPERATIONS COORDINATOR Ot I65.23 OCCLUSION AND STENOSIS OF [place] 07/05/2017 [facility] PHARM[facility] OPERATIONS COORDINATOR Ot R07.89 OTHER CHEST PAIN 07/05/2017 VICKI [...] CARRERO FACC, ALI FACP CCDS Ot Z79.01 ELEMENTARY TEACHER (CURRENT) USE OF ANTICOAGULANT 07/05/2017 VICKI CARRERO FACC, ALI FACP CCDS Ot Z79.899 OTHER ELEMENTARY TEACHER (CURRENT) DRUG THERAPY 07/05/2017 VICKI CARRERO FACC, [...] Ot Z79.01 PENITENTIARY (CURRENT) USE OF ANTICOAGULANT 07/08/2017 VICKI CARRERO FACC, ALI FACP CCDS Ot Z79.899 OTHER ELEMENTARY TEACHER (CURRENT) DRUG THERAPY 07/08/2017 VICKI CARRERO FACC, ALI FACP CCDS Ot Z86.718 PERSONAL HISTORY OF OTHER VENOUS THROMBO 07/16/2017 [facility] OPERATIONS COORDINATOR Ot E78.4 OTHER HYPERLIPIDEMIA 07/16/2017 NEYR FIELDHER L PHARMACY OPERATIONS COORDINATOR Ot I10 ESSENTIAL (PRIMARY) HYPERTENSION 07/16/2017 BAIMAROCIO PHARMACY OPERATIONS COORDINATOR Ot I65.23 OCCLUSION AND STENOSIS OF [place] 07/16/2017 BAIMAROCIO L PHARMACY OPERATIONS COORDINATOR Ot R07.89 OTHER CHEST PAIN 07/16/2017 BAISHANNA, ROCIO L PHARMACY OPERATIONS COORDINATOR Ot E78.4 OTHER HYPERLIPIDEMIA 07/16/2017 BAIMA, ROCIO L PHARMACY OPERATIONS COORDINATOR Ot I10 ESSENTIAL (PRIMARY) HYPERTENSION 07/16/2017 BAIMA, ROCIO L PHARMACY OPERATIONS COORDINATOR Ot I65.23 OCCLUSION AND STENOSIS OF [place] 07/16/2017 BAIMAROCIO PHARMACY OPERATIONS COORDINATOR Ot R07.89 OTHER CHEST PAIN 07/16/2017 NAHOMY BETH MD Ot I25.10 ATHSCL HEART DISEASE OF [place] CORONARY 09/05/2017 NAHOMY BETH MD, Ot Z12.31 ENCNTR SCREEN MAMMOGRAM FOR MALIGNANT NE 09/19/2017 VICKI CARRERO FACC, ALI FACP CCDS Ot 785.1 PALPITATIONS 09/19/2017 VICKI CARRERO FACC, ALI FACP CCDS Ot 786.50 CHEST PAIN NOS 09/19/2017 NAHOMY BETH MD Ot I87.2 VENOUS INSUFFICIENCY (CHRONIC) (PERIPHER 09/19/2017 NAHOMY BETH MD Ot Z79.01 ELEMENTARY TEACHER (CURRENT) USE OF ANTICOAGULANT 09/19/2017 JIMMY SPAULDING MD, Ot F41.9 ANXIETY DISORDER, UNSPECIFIED 09/19/2017 JIMMY SPAULDING MD, Ot G40.909 EPILEPSY, UNSP, NOT INTRACTABLE, WITHOUT 09/19/2017 JIMMY SPAULDING MD, Ot J90 PLEURAL EFFUSION, NOT ELSEWHERE CLASSIFI 09/19/2017 JIMMY SPAULDING MD, Ot M19.91 PRIMARY OSTEOARTHRITIS, UNSPECIFIED SITE 09/19/2017 JIMMY SPAULDING MD, Ot N39.0 URINARY TRACT INFECTION, SITE NOT SPECIF 09/19/2017 JIMMY SPAULDING MD, Ot R79.1 ABNORMAL COAGULATION PROFILE 09/19/2017 JIMMY SPAULDING MD, Ot Z79.899 OTHER ELEMENTARY TEACHER (CURRENT) DRUG THERAPY 09/19/2017 JIMMY SPAULDING MD, [...] HEART FAILURE, UNSPECIFIED 12/05/2017 BAIMA, ROCIO L PHARMACY OPERATIONS COORDINATOR Ot E78.4 OTHER HYPERLIPIDEMIA 12/05/2017 BAIMA, ROCIO L PHARMACY OPERATIONS COORDINATOR Ot I10 ESSENTIAL (PRIMARY) HYPERTENSION 12/05/2017 BAIMA, ROCIO L PHARMACY OPERATIONS COORDINATOR Ot I65.23 OCCLUSION AND STENOSIS OF [place] 12/05/2017 BAIMA, ROCIO L PHARMACY OPERATIONS COORDINATOR Ot R07.89 OTHER CHEST PAIN 12/05/2017 BAIMA, ROCIO L PHARMACY OPERATIONS COORDINATOR Ot E78.4 OTHER HYPERLIPIDEMIA 12/05/2017 BAIMA, ROCIO L PHARMACY OPERATIONS COORDINATOR Ot I10 ESSENTIAL (PRIMARY) HYPERTENSION 12/05/2017 BAIMA, ROCIO L PHARMACY OPERATIONS COORDINATOR Ot I65.23 OCCLUSION AND STENOSIS OF [place] 12/05/2017 BAIMA, ROCIO L PHARMACY OPERATIONS COORDINATOR Ot R07.89 OTHER CHEST PAIN 12/05/2017 NAHOMY BETH MD Ot I25.10 ATHSCL HEART DISEASE OF [place] CORONARY 12/05/2017 NAHOMY BETH MD Ot Z12.31 [...] 02/05/2018 Ot I25.10 ATHSCL HEART DISEASE OF [place] CORONARY 02/05/2018 Ot I69.354 HEMIPLGA FOLLOWING CEREBRAL INFRC AFFECT 02/05/2018 Ot K21.9 GASTRO- ESOPHAGEAL REFLUX DISEASE WITHOUT 02/05/2018 Ot K59.09 OTHER CONSTIPATION 02/05/2018 Ot M81.0 AGE-RELATED OSTEOPOROSIS W/O CURRENT PAT 02/05/2018 Ot R00.1 BRADYCARDIA, UNSPECIFIED 02/05/2018 Ot R41.82 ALTERED MENTAL STATUS, UNSPECIFIED 02/05/2018 Ot R82.99 OTHER ABNORMAL FINDINGS IN URINE 02/05/2018 Ot Z66 DO NOT RESUSCITATE 02/05/2018 Ot Z79.01 ELEMENTARY TEACHER ( CURRENT) USE OF ANTICOAGULANT 02/05/2018 Ot [...] 02/05/2018 Ot I25.10 ATHSCL HEART DISEASE OF [place] CORONARY 02/05/2018 Ot I69.354 HEMIPLGA FOLLOWING CEREBRAL INFRC AFFECT 02/05/2018 Ot K21.9 GASTRO- ESOPHAGEAL REFLUX DISEASE WITHOUT 02/05/2018 Ot K59.09 OTHER CONSTIPATION 02/05/2018 Ot M81.0 AGE-RELATED OSTEOPOROSIS W/O CURRENT PAT 02/05/2018 Ot R00.1 BRADYCARDIA, UNSPECIFIED 02/05/2018 Ot R41.82 ALTERED MENTAL STATUS, UNSPECIFIED 02/05/2018 Ot R82.99 OTHER ABNORMAL FINDINGS IN URINE 02/05/2018 Ot Z66 DO NOT RESUSCITATE 02/05/2018 Ot Z79.01 PENITENTIARY ( CURRENT) USE OF ANTICOAGULANT 02/05/2018 Ot [...] convulsions 05/09/2018 Starr Jeremy Final Z79.899 Other exterminator helper termite (current) drug therapy 05/09/2018 Starr Jeremy Final [...] Performed On General S Jonathan Najera 05/20/2012 [id number] INR (IN HOUSE) 05/20/2012 97426 INR (IN HOUSE) 05/20/2012 38811 BONE DENSITY, DEXA 06/01/2012 General S Gilbert Schultz 08/11/2012 [id number] ROUTINE VENIPUNCTURE 09/23/2012 47250 INR (IN HOUSE) 09/23/2012 71127 BMP 09/23/2012 [id number] GFR CALC (RESULT ONLY) 09/23/2012 95801 DILANTIN 09/23/2012 Otolaryng Roldan Hidalgo 09/24/2012 88813 DEXA BONE DENSITY, AXIAL 12/02/2012 76991 INR (IN HOUSE) 12/02/2012 J3420 B12 VITAMIN INJECTION 12/02/2012 63110 THERAPUTIC INJ SQ/IM 12/02/2012 67283 INR (IN HOUSE) 01/22/2013 General S Nick Oneill 02/16/2013 36370 PT/INR 07/27/2013 Podiatry Casie Arriaga 08/27/2013 40323 XRAY FOOT LEFT COMP MIN 3 VIEWS 01/01/2014 89560 DEBRIDE NAIL 1-5 05/14/2014 [id number] Release Peritoneum, Open Approach 04/24/2018 Results Test [...] culture - 09/19/17 03:55 Bacterial urine culture [id number] NRG COLONY COUNT 10,000/ML - 100,000/ML NRG FTX;REPORTABLE SENSITIVITIES REPORTED 09/21 12:33 NRG URINE CULTURE RESULTS PLUS NRG FREE TEXT ENTRY 3 MIXED GRAM POSITIVE JAY [facility] Bacterial susceptibility panel - 09/19/17 03:55 [...] test by minimum inhibitory concentration - [facility] Bacterial susceptibility panel - 09/19/17 03:55 [...] - 04/29/18 08:01 eGFR >60 mL/min >60 Complete blood count (CBC) with automated white blood cell (WBC) differential - 07/05/18 15:25 Blood leukocytes automated count (number/volume) 4.7 10*3/uL 4.3-11.0 Blood erythrocytes automated count (number/volume) 3.17 10*6/uL 4.35-5.85 Venous blood hemoglobin measurement (mass/volume) 10.1 g/dL 11.5-16.0 Blood hematocrit (volume fraction) 30 % 35-52 Automated erythrocyte mean corpuscular volume 95 [foz_us] 80-99 Automated erythrocyte mean corpuscular hemoglobin (mass per erythrocyte) 32 pg 25-34 Automated erythrocyte mean corpuscular hemoglobin concentration measurement ( mass/volume) 33 g/dL 32-36 Automated erythrocyte distribution width ratio 12.9 % 10.0-14.5 Automated blood platelet count (count/volume) 219 10*3/uL 130-400 Automated blood platelet mean volume measurement 9.8 [foz_us] 7.4-10.4 Automated blood neutrophils/100 leukocytes 73 % 42-75 Automated blood lymphocytes/100 leukocytes 13 % 12-44 Blood monocytes/100 leukocytes 10 % 0-12 Automated blood eosinophils/100 leukocytes 3 % 0-10 Automated blood basophils/100 leukocytes 0 % 0-10 Blood neutrophils automated count (number/volume) 3.4 10*3 1.8-7.8 Blood lymphocytes automated count (number/volume) 0.6 10*3 1.0-4.0 Blood monocytes automated count (number/volume) 0.5 10*3 0.0-1.0 Automated eosinophil count 0.2 10*3/uL 0.0-0.3 Automated blood basophil count (count/volume) 0.0 10*3/uL 0.0-0.1 Complete urinalysis with reflex to culture - 07/05/18 15:25 Urine color determination YELLOW NRG Urine clarity determination VERY CLOUDY NRG Urine pH measurement by test strip 8 5-9 Specific gravity of urine by test strip 1.010 1.016- 1.022 Urine protein assay by test strip, semi-quantitative NEGATIVE NEGATIVE Urine glucose detection by automated test strip NEGATIVE NEGATIVE Erythrocytes detection in urine sediment by light microscopy 2+ NEGATIVE Urine ketones detection by automated test strip NEGATIVE NEGATIVE Urine nitrite detection by test strip POSITIVE NEGATIVE Urine total bilirubin detection by test strip NEGATIVE NEGATIVE Urine urobilinogen measurement by automated test strip (mass/volume) NORMAL NORMAL Urine leukocyte esterase detection by dipstick 2+ NEGATIVE Automated urine sediment erythrocyte count by microscopy (number/high power field) NONE NRG Automated urine sediment leukocyte count by microscopy (number/high power field ) [HPF] NRG Bacteria detection in urine sediment by light microscopy LARGE NRG Squamous epithelial cells detection in urine sediment by light microscopy NONE NRG Crystals detection in urine sediment by light microscopy PRESENT NRG Casts detection in urine sediment by light microscopy NONE NRG Mucus detection in urine sediment by light microscopy NEGATIVE NRG Complete urinalysis with reflex to culture YES NRG Amorphous sediment detection in urine sediment by light microscopy MOD TOMMY PHOSPHATE NRG Triple phosphate crystals detection in urine sediment by light microscopy LARGE NRG Comprehensive metabolic panel - 07/05/18 15:25 Serum or plasma sodium measurement (moles/volume) 132 mmol/L 135-145 Serum or plasma potassium measurement (moles/volume) 4.1 mmol/L 3.6-5.0 Serum or plasma chloride measurement (moles/volume) 101 mmol/L 98-107 Carbon dioxide 20 mmol/L 21-32 Serum or plasma anion gap determination (moles/volume) 11 mmol/L 5-14 Serum or plasma urea nitrogen measurement (mass/volume) 14 mg/dL 7-18 Serum or plasma creatinine measurement (mass/volume) 0.90 mg/dL 0.60-1.30 Serum or plasma urea nitrogen/creatinine mass ratio 16 NRG Serum or plasma creatinine measurement with calculation of estimated glomerular filtration rate > NRG Serum or plasma glucose measurement (mass/volume) 99 mg/dL 70-105 Serum or plasma calcium measurement (mass/volume) 9.1 mg/dL 8.5-10.1 Serum or plasma total bilirubin measurement (mass/volume) 0.3 mg/dL 0.1-1.0 Serum or plasma alkaline phosphatase measurement (enzymatic activity/volume) 114 U/L 40-136 Serum or plasma aspartate aminotransferase measurement (enzymatic activity/ volume) 14 U/L 5-34 Serum or plasma alanine aminotransferase measurement (enzymatic activity/volume ) 8 U/L 0-55 Serum or plasma protein measurement (mass/volume) 6.7 g/dL 6.4-8.2 Serum or plasma albumin measurement (mass/volume) 3.9 g/dL 3.2-4.5 CALCIUM CORRECTED 9.2 mg/dL 8.5-10.1 Magnesium - 07/05/18 15:25 Magnesium 1.9 mg/dL 1.8-2.4 PT panel in platelet poor plasma by coagulation assay - 07/05/18 15:35 Prothrombin time (PT) in platelet poor plasma by coagulation assay 21.9 s 12.2-14.7 INR in platelet poor plasma or blood by coagulation assay 1.9 0.8-1.4 Activated partial thromboplastin time (aPTT) in platelet poor plasma bycoagulation assay - 07/05/18 15:35 Activated partial thromboplastin time (aPTT) in platelet poor plasma bycoagulation assay 56 s 24-35 Encounters ACCT No. Visit Date/Time Discharge Status Pt. Type Provider Facility Loc./Unit Complaint [id number] 07/07/2014 16:42:00 07/07/2014 23:59:59 CLS Outpatient NAHOMY BETH MD [id number] 07/02/2014 09:57:00 07/02/2014 23:59:59 CLS Outpatient CASIE ARRIAGA DPM [id number] 05/27/2014 15:44:00 05/27/2014 23:59:59 CLS Outpatient NAHOMY BETH MD [id number] 05/14/2014 09:51:00 05/14/2014 23:59:59 CLS Outpatient CASIE ARRIAGA DPM [id number] 03/12/2014 09:45:00 03/12/2014 23:59:59 CLS Outpatient CASIE ARRIAGA DPM [id number] 03/04/2014 09:43:00 03/04/2014 23:59:59 CLS Outpatient NAHOMY BETH MD [id number] 01/01/2014 09:05:00 01/01/2014 23:59:59 CLS Outpatient NAIN HARO DO [id number] 01/01/2014 09:05:00 01/01/2014 23:59:59 CLS Outpatient NAIN HARO DO [id number] 10/29/2013 13:35:00 10/29/2013 23:59:59 BHAVANI Outpatient NAHOMY BETH MD [id number] 08/27/2013 15:00:00 08/27/2013 23:59:59 BHAVANI Outpatient NAHOMY BETH MD [id number] 07/30/2013 15:19:00 07/30/2013 23:59:59 BHAVANI Outpatient NAHOMY BETH MD [id number] 03/02/2013 13:56:00 03/02/2013 23:59:59 CLS Outpatient NAHOMY BETH MD [id number] 09/23/2012 11:45:00 09/23/2012 23:59:59 CLS Outpatient NAHOMY BETH MD [id number] 05/20/2012 09:24:00 05/20/2012 23:59:59 [place] [id number] 04/15/2012 15:12:00 04/15/2012 23:59:59 CLS Outpatient NAIN HARO DO [id number] 02/09/2013 07:55:00 Document Registration [id number] 02/05/2013 14:58:00 Document Registration [id number] 12/02/2012 09:33:00 Document Registration [id number] 12/02/2012 09:33:00 Document Registration [id number] 09/23/2012 11:45:00 Document Registration [id number] 07/04/2018 09:00:00 ACT Outpatient NAHOMY BETH MD [facility] [id number] 03/10/2018 12:40:00 03/10/2018 23:59:59 CLS Outpatient KARLY DOWELL ROSELIA Stevenson [facility] RAD HERNIA K43.2 [id number] 12/17/2017 10:28:00 12/17/2017 23:59:59 CLS Outpatient KOREY BYERS MD [facility] RAD RENAL FAILURE [id number] 12/04/2017 16:02:00 12/04/2017 23:59:59 CLS Preadmit KOREY BYERS MD [facility] RAD RENAL FALURE [id number] 09/19/2017 04:45:00 09/19/2017 12:45:00 DIS Inpatient JIMMY SPAULDING MD Via [facility] 4TH UTI-SZ> 30 MINS, SUBTHERAPEUTIC DILANTIN LEVEL, [id number] 09/04/2017 10:08:00 09/04/2017 23:59:59 CLS Outpatient NAHOMY BETH MD [facility] RAD SCREENING [id number] 07/02/2017 06:41:00 07/02/2017 14:50:00 DIS Outpatient VICKI CARRERO FACC, YORDAN PERDOMO CCDS [facility] CATH AORTIC VALVE REGURG [id number] 06/13/2017 07:02:00 06/13/2017 23:59:59 CLS Outpatient ROCIO FIELD [facility] CARD R07.89 [id number] 06/12/2017 09:37:00 06/12/2017 23:59:59 CLS Outpatient ROCIO FIELD [facility] CARD R07.89 CHEST PAIN [id number] 06/07/2017 17:12:00 06/07/2017 23:59:59 CLS Outpatient NAHOMY BETH MD [facility] LABNPT [id number] 05/10/2017 13:20:00 05/10/2017 15:10:00 DIS [facility] [id number] 04/18/2017 08:29:00 04/18/2017 23:59:59 CLS Outpatient NAHOMY BETH MD Via [facility] RAD M81.0 AGE RELATED OSTEOPOROSIS [id number] 04/07/2017 08:20:00 04/07/2017 23:59:59 CLS Outpatient NAHOMY BETH MD [facility] LABT [id number] 02/15/2017 07:26:00 02/15/2017 10:30:00 DIS Outpatient ALLISON BELLA MD [facility] ENDO RECTAL BLEEDING, ANEMIA , VENTRAL HERNIA [id number] 02/13/2017 08:20:00 02/13/2017 23:59:59 CLS Preadmit NAHOMY BETH MD Via [facility] RAD M81.0 [id number] 02/08/2017 05:55:00 02/08/2017 12:30:00 DIS Outpatient ALLISON BELLA MD [facility] PREOP RECTAL BLEEDING ANEMIA , VENTRAL HERNIA [id number] 12/03/2016 10:15:00 12/03/2016 23:59:59 CLS Outpatient KOREY BYERS MD [facility] RAD RENAL INSUFFICIENCY [id number] 09/14/2016 10:57:00 09/14/2016 23:59:59 CLS Outpatient NAHOMY BETH MD Via [facility] LABT I25.10, I25.810 [id number] 08/23/2016 11:47:00 08/23/2016 23:59:59 CLS Outpatient NAHOMY BETH MD [facility] RAD SCREENING [id number] 07/20/2016 00:09:00 07/20/2016 23:59:59 CLS Preadmit NAHOMY BETH MD Via [facility] POOR DAVID ACCESS [id number] 05/16/2016 12:41:00 07/19/2016 00:01:00 DIS Outpatient NAHOMY BETH MD Via [facility] POOR DAVID ACCESS [id number] 04/06/2016 12:35:00 04/12/2016 00:01:00 DIS Outpatient NAHOMY BETH MD Via [facility] POOR DAVID ACCESS [id number] 12/30/2015 12:35:00 01/05/2016 00:01:00 DIS Outpatient NAHOMY BETH MD Via [facility] POOR DAVID ACCESS [id number] 11/17/2015 11:14:00 11/17/2015 23:59:59 CLS Outpatient KOREY BYERS MD [facility] RAD RENAL FAILURE [id number] 09/23/2015 12:46:00 09/29/2015 00:01:00 DIS Outpatient NAHOMY BETH MD Via [facility] POOR DAVID ACCESS [id number] 09/02/2015 15:34:00 09/02/2015 19:28:00 DIS Emergency ALLISON THOMPSON MD Via [facility] ER L LEG PAIN [id number] 06/20/2015 12:42:00 06/23/2015 00:01:00 DIS Outpatient NAHOMY BETH MD Via [facility] POOR DAVID ACCESS [id number] 06/03/2015 01:11:00 06/03/2015 02:20:00 DIS Emergency JEANETTE KENDRICK DO Via [facility] ER FALL-SWOLLEN ANKLE [id number] 04/21/2015 11:26:00 04/21/2015 23:59:59 CLS Outpatient NAHOMY BETH MD Via [facility] RAD ABD PAIN AND PELVIC [id number] 03/11/2015 12:33:00 03/23/2015 00:01:00 DIS Outpatient NAHOMY BETH MD Via [facility] POOR DAVID ACCESS [id number] 02/25/2015 12:48:00 02/25/2015 23:59:59 CLS Outpatient ROCIO FIELDP Via [facility] LAB HYPERLIPIDEMIA [id number] 02/11/2015 12:40:00 02/17/2015 00:01:00 DIS Outpatient NAHOMY BETH MD Via [facility] POOR DAVID ACCESS [id number] 11/05/2014 11:39:00 11/11/2014 00:01:00 DIS Outpatient NAHOMY BETH MD Via [facility] POOR DAVID ACCESS [id number] 07/09/2014 13:07:00 08/05/2014 00:01:00 DIS Outpatient NAHOMY BETH MD Via [facility] POOR DAVID ACCESS [id number] 07/19/2014 08:00:00 07/19/2014 23:59:59 CLS Preadmit SATYA DPM, CASIE Q Via [facility] BILATERAL HAMMERTOE [id number] 07/13/2014 10:24:00 07/13/2014 23:59:59 CLS Outpatient SATYA DPM, CASIE Q [facility] PREOP BILATERAL HAMMERTOE [id number] 06/30/2014 11:00:00 06/30/2014 23:59:59 CLS Preadmit YORDAN COHEN MD, FACC, FACP CCDS [facility] CARD PALPITATIONS, HTN,CP [id number] 04/26/2014 07:08:00 06/29/2014 00:01:00 DIS Outpatient YORDAN COHEN MD, FACC FACLaz CCDS [facility] CARD PALPITATIONS, HTN,CP [id number] 05/18/2014 09:04:00 05/18/2014 23:59:59 CLS Outpatient YORDAN COHEN MD, FACCP CCDS [facility] CATH PALPITATIONS, DIZZINESS [id number] 05/13/2014 11:05:00 05/13/2014 23:59:59 CLS Outpatient VICKI CARRERO FACMariaelena, YORDAN PERDOMO CCDS [facility] RAD CAROTID ARTERY STENOSIS [id number] 04/23/2014 13:06:00 04/29/2014 00:01:00 DIS Outpatient NAHOMY BETH MD Via [facility] POOR DAVID ACCESS [id number] 04/26/2014 11:35:00 04/26/2014 23:59:59 CLS Outpatient VICKI CARRERO FACC, YORDAN PERDOMO CCDS [facility] CARD PALPITATIONS, CP,CVA,DVT [id number] 02/26/2014 08:48:00 02/26/2014 23:59:59 CLS Outpatient NICK ONEILL MD [facility] RAD INCOMPLETE COLONOSCOPY [id number] 02/25/2014 07:13:00 02/25/2014 12:01:00 DIS Outpatient NICK ONEILL MD Via [facility] ANEMIA,DIARRHEA [id number] 02/24/2014 07:30:00 02/24/2014 23:59:59 CLS Outpatient NICK ONEILL MD Via [facility] PREOP ANEMIA [id number] 01/29/2014 12:56:00 01/29/2014 23:59:59 CLS Outpatient ROCIO FILED [facility] LAB CVA,DVT [id number] 01/15/2014 12:34:00 01/21/2014 00:01:00 DIS Outpatient MAYELIN ETIENNE MD Via [facility] POOR DAVID ACCESS [id number] 12/16/2013 07:16:00 12/16/2013 11:02:00 DIS Emergency KRISTY WALDRON MD Via [facility] ER UNRESPONSIVE [id number] 11/12/2013 13:11:00 11/12/2013 23:59:59 CLS Outpatient KOREY BYERS MD [facility] RAD RENAL INSUFFICIENCY [id number] 10/09/2013 12:57:00 10/21/2013 00:01:00 DIS Outpatient MAYELIN ETIENNE MD Via [facility] POOR DAVID ACCESS [id number] 07/24/2013 18:12:00 07/24/2013 22:39:00 DIS Emergency KRISTY WALDRON MD Via [facility] ER SEIZURE [id number] 07/03/2013 06:36:00 07/03/2013 23:59:59 CLS Outpatient NICK ONEILL MD Via [facility] POOR VENOUS ACCESS [id number] 06/29/2013 08:37:00 06/29/2013 23:59:59 CLS Outpatient NICK ONEILL MD Via [facility] PREOP POOR VENOUS ACCESS [id number] 05/11/2013 09:36:00 06/16/2013 00:01:00 DIS Outpatient MAYELIN ETIENNE MD Via [facility] POOR DAVID ACCESS [id number] 04/09/2013 10:02:00 04/09/2013 23:59:59 CLS Outpatient ROCIO FIELD [facility] RAD CAROTID ARTERIAL DISEASE,IV CONTRAST [id number] 03/18/2013 09:00:00 03/18/2013 23:59:59 CLS Outpatient NAHOMY BETH MD Via [facility] LAB HIGH RISK MEDICATION,CRF [id number] 12/11/2012 10:16:00 03/11/2013 00:01:00 DIS Outpatient MAYELIN ETIENNE MD Via [facility] POOR DAVID ACCESS [id number] 03/04/2013 05:55:00 03/06/2013 14:10:00 DIS Outpatient NICK ONEILL MD Via [facility] VENTRAL HERNIA/NO VENOUS ACCESS [id number] 02/27/2013 09:45:00 02/27/2013 23:59:59 CLS Outpatient VICKI CARRERO FACCYORDAN FACP CCDS Via [facility] RAD CVD [id number] 02/27/2013 09:01:00 02/27/2013 23:59:59 CLS Outpatient NICK ONEILL MD Via [facility] PREOP VENTRAL HERNIA/NO VENOUS ACCESS [id number] 02/06/2013 09:51:00 02/08/2013 16:10:00 DIS Inpatient NAHOMY BETH MD Via [facility] 4TH ANEMIA [id number] 02/03/2013 20:27:00 02/03/2013 23:24:00 DIS Emergency DEEPTI MARTINEZ MD Via [facility] ER INJ FROM FALL [id number] 01/31/2013 19:00:00 01/31/2013 22:08:00 DIS Emergency DEEPTI MARTINEZ MD Via [facility] ER FALL [id number] 01/09/2013 23:26:00 01/10/2013 11:46:00 DIS Inpatient NAHOMY BETH MD Via [facility] ICU CHEST PAIN [id number] 12/11/2012 09:43:00 12/11/2012 23:59:59 CLS Outpatient LUCIANA MARTINEZ Via [facility] LAB CAD [id number] 10/28/2012 08:31:00 10/28/2012 14:30:00 DIS Outpatient ARUN HERNANDEZ MD Via [facility] SDC IV ACCESS [id number] 10/22/2012 10:27:00 10/22/2012 23:59:59 CLS Outpatient ARUN HERNANDEZ MD Via [facility] PREOP IV ACCESS [id number] 07/05/2018 15:37:00 Document Registration [id number] 02/04/2018 17:30:00 Document Registration [id number] 06/03/2015 01:23:00 Document Registration [id number] 06/03/2015 01:22:00 Document Registration [id number] 06/03/2015 01:22:00 Document Registration [id number] 09/04/2012 09:02:00 Document Registration [id number] 08/14/2012 14:39:00 Document Registration [id number] 08/14/2012 14:25:00 Document Registration [id number] 06/05/2012 10:08:00 Document Registration [id number] 05/20/2012 09:35:00 Document Registration [id number] 03/24/2012 10:10:00 Document Registration [id number] 03/12/2012 13:12:00 Document Registration [id number] 03/06/2012 14:34:00 Document Registration [id number] 02/04/2012 12:57:00 Document Registration [id number] 10/11/2011 09:50:00 Document Registration [id number] 09/04/2011 10:49:00 Document Registration [id number] 08/01/2011 09:27:00 Document Registration [id number] 07/27/2011 06:06:00 Document Registration [id number] 07/26/2011 13:02:00 Document Registration [id number] 07/23/2011 05:35:00 Document Registration [id number] 07/20/2011 15:19:00 Document Registration [id number] 03/28/2011 12:44:00 Document Registration [id number] 12/06/2010 12:32:00 Document Registration [id number] 09/04/2010 11:27:00 Document Registration [id number] 08/29/2010 11:50:00 Document Registration [id number] 08/23/2010 11:11:00 Document Registration [id number] 08/16/2010 13:00:00 Document Registration [id number] 06/22/2010 13:00:00 Document Registration [id number] 05/17/2010 12:45:00 Document Registration [id number] 05/02/2010 11:11:00 Document Registration [id number] 03/09/2010 13:06:00 Document Registration [id number] 02/17/2010 14:05:00 Document Registration [id number] 01/10/2010 13:36:00 Document Registration [id number] 12/13/2009 09:59:00 Document Registration [id number] 05/20/2007 15:19:00 Document Registration [id number] 04/24/2018 12:10:00 04/29/2018 14:55:00 DIS Inpatient Starr Jeremy [facility] F7SE hernia - open recurrent incisional hernia repair with mesh [id number] 04/30/2018 05:19:34 Document Registration [id number] 04/28/2018 05:17:38 Document Registration [id number] 04/27/2018 05:18:04 Document Registration [id number] 04/26/2018 05:21:30 Document Registration [id number] 04/25/2018 05:22:39 Document Registration [id number] 04/23/2018 05:19:30 Document Registration [id number] 03/26/2015 05:36:16 ACT Document Registration
[2018-07-05 18:20] VITALS: BP 129/60
[2018-07-05] MEDS ORDERED: BACL10TA PO (18:30)
[2018-07-05] MEDS ORDERED: DIPH25CA79 PO (18:30)
[2018-07-05] MEDS ORDERED: FENT1PAT59 TD (18:30)
[2018-07-05] MEDS ORDERED: OXYC5CAP18 PO (18:30)
[2018-07-05] MEDS: NS IV 1000 ML 1,000 ML IV SCH (18:51)
--- NOTE | 2018-07-05 18:52 | NUR ---
MEDS HAVE BEEN CHECKED BY PTROTHRN-- PT VERY LETHARGIC (SEDATED?)
[2018-07-05 19:20] VITALS: BP 139/60
[2018-07-05 20:20] VITALS: BP 157/70
[2018-07-05 22:20] VITALS: BP 142/60
[2018-07-06] VITALS: BP 170/60
[2018-07-06] MEDS: NS IV 1000 ML 1,000 ML IV SCH ×2 (02:49→13:25)
[2018-07-06 04:00] VITALS: BP 204/78
--- NOTE | 2018-07-06 04:05 | NUR ---
DR. DOUGLAS CALLED AND INFORMED PT B/P IS 204/ AND PULSE IN HIGH 40'S TO LOW 50'S. NO NEW ORDERS AT THIS TIME.
[2018-07-06 05:42] LABS: BASOPHILS % (AUTO) 1 % (0-10); EOSINOPHILS # (AUTO) 0.1 10^3/uL (0.0-0.3); EOSINOPHILS % (AUTO) 2 % (0-10); HEMATOCRIT 32 % (35-52); HEMOGLOBIN 10.4 G/DL (11.5-16.0); LYMPHOCYTES # (AUTO) 0.6 X 10^3 (1.0-4.0); LYMPHOCYTES % (AUTO) 14 % (12-44); MEAN CORPUSCULAR HEMOGLOBIN 31 PG (25-34); MEAN CORPUSCULAR HGB CONC 33 G/DL (32-36); MEAN CORPUSCULAR VOLUME 96 FL (80-99); MEAN PLATELET VOLUME 9.8 FL (7.4-10.4); MONOCYTES # (AUTO) 0.5 X 10^3 (0.0-1.0); MONOCYTES % (AUTO) 11 % (0-12); NEUTROPHILS # (AUTO) 3.1 X 10^3 (1.8-7.8); NEUTROPHILS % (AUTO) 73 % (42-75); PLATELET COUNT 192 10^3/uL (130-400); RED BLOOD COUNT 3.35 10^6/uL (4.35-5.85); RED CELL DISTRIBUTION WIDTH 12.7 % (10.0-14.5); WHITE BLOOD COUNT 4.3 10^3/uL (4.3-11.0)
[2018-07-06 06:03] LABS: BUN/CREATININE RATIO 14; CALCIUM 8.8 MG/DL (8.5-10.1); CARBON DIOXIDE 20 MMOL/L (21-32); CHLORIDE 112 MMOL/L (98-107); CREATININE SERUM 0.74 MG/DL (0.60-1.30); GFR ESTIMATED > 60; GLUCOSE 83 MG/DL (70-105); POTASSIUM 3.5 MMOL/L (3.6-5.0); SODIUM 142 MMOL/L (135-145)
[2018-07-06 08:00] VITALS: BP 108/56
--- NOTE | 2018-07-06 08:20 | History & Physicial (CHS) ---
HPI History of Present Illness: 68-year-old female a resident of [facility] was taken to the emergency department after apparently she became with decreased alertness and altered mental status. Staff reports she is normally alert and able to ambulate. Reviewing the history from [facility] and ED she had been prescribed baclofen and she has taken 3 doses for her back. Apparently she took 10 mg 3 times a day. She is also on medications for ongoing pain and does take fentanyl patch, oral narcotics and gabapentin. Source: RN/MD Exam Limitations: clinical condition Date seen by provider: Jul 06, 2018 Time Seen by Provider: 07:15 Attending Physician Regan Douglas MD PCP Silvino Elias MD Consult Date of Admission Jul 05, 2018 at 16:43 Home Medications Home Medications Reviewed patient Home Medication Reconciliation performed by pharmacy medication reconciliations systems technician and/or nursing. Patients Allergies have been reviewed. Allergies Coded Allergies: Fish Containing Products (Unverified Allergy, Unknown, 09/19/17) FROM UNCODED ALLERGIES Penicillins (Verified Allergy, Unknown, 03/18/06) Sulfa (Sulfonamide Antibiotics) (Verified Allergy, Unknown, 03/18/06) acetaminophen (Verified Allergy, Unknown, 03/18/06) amitriptyline (Verified Allergy, Unknown, 03/18/06) aspirin (Verified Allergy, Unknown, 03/18/06) caramiphen (Verified Allergy, Unknown, 03/18/06) carbamazepine (Verified Allergy, Unknown, 03/18/06) clarithromycin (Verified Allergy, Unknown, 03/18/06) codeine (Verified Allergy, Unknown, 03/18/06) coffee (Coffea arabica) (Unverified Allergy, Unknown, 09/19/17) FROM UNCODED ALLERGIES diazepam (Verified Allergy, Unknown, 03/18/06) diphenhydramine (Verified Allergy, Unknown, 03/18/06) doxycycline (Verified Allergy, Unknown, 03/18/06) egg (Verified Allergy, Unknown, 03/18/06) fish oil (Verified Allergy, Unknown, 03/18/06) flavoxate (Verified Allergy, Unknown, 03/18/06) hydrocodone (Verified Allergy, Unknown, 03/18/06) hydroxyzine (Verified Allergy, Unknown, 03/18/06) hyoscyamine (Verified Allergy, Unknown, 03/18/06) imipramine (Verified Allergy, Unknown, 03/18/06) levofloxacin (Verified Allergy, Unknown, 03/18/06) liver extract (Verified Allergy, Unknown, 03/18/06) lorazepam (Verified Allergy, Unknown, 03/18/06) milk (Verified Allergy, Unknown, 03/18/06) nitrofurantoin (Verified Allergy, Unknown, 03/18/06) oxybutynin (Verified Allergy, Unknown, 03/18/06) pentazocine (Verified Allergy, Unknown, 03/18/06) phenazopyridine (Verified Allergy, Unknown, 03/18/06) phenylpropanolamine (Verified Allergy, Unknown, 03/18/06) procaine (Verified Allergy, Unknown, 03/18/06) promethazine (Verified Allergy, Unknown, 03/18/06) propoxyphene (Verified Allergy, Unknown, 03/18/06) pseudoephedrine (Verified Allergy, Unknown, 03/18/06) spinach (Unverified Allergy, Unknown, 09/19/17) FROM UNCODED ALLERGIES tetracycline (Verified Allergy, Unknown, 03/18/06) tramadol (Verified Allergy, Unknown, 03/18/06) zinc acetate (Verified Allergy, Unknown, 03/18/06) Uncoded Allergies: ANITHISTAMINES (Allergy, Unknown, 03/18/06) BVM-Nczpel-Nrntbg Hx Patient Social History Alcohol Use: Denies Use Recreational Drug Use: No Recent Foreign Travel: No Contact w/other who traveled: No Recent Hopitalizations: No Recent Infectious Disease Expo: No Physical Abuse Screen: No Sexual Abuse: No Immunizations Up To Date Tetanus Booster (TDap): More than 5yrs Date of Pneumonia Vaccine: May 02, 2017 Date of Influenza Vaccine: Mar 24, 2018 Review of Systems ([facility]C) Constitutional: see HPI Reviewed Test Results Reviewed Test Results Lab Laboratory Tests Test 07/05/18 15:25 07/05/18 15:35 07/06/18 05:30 Range/Units White Blood Count 4.7 4.3 4.3-11.0 10^3/uL Red Blood Count 3.17 L 3.35 L 4.35-5.85 10^6/uL Hemoglobin 10.1 L 10.4 L 11.5-16.0 G/DL Hematocrit 30 L 32 L 35-52 % Mean Corpuscular Volume 95 96 80-99 FL Mean Corpuscular Hemoglobin 32 31 25-34 PG Mean Corpuscular Hemoglobin Concent 33 33 32-36 G/DL Red Cell Distribution Width 12.9 12.7 10.0-14.5 % Platelet Count 219 192 130-400 10^3/uL Mean Platelet Volume 9.8 9.8 7.4-10.4 FL Neutrophils (%) (Auto) 73 73 42-75 % Lymphocytes (%) (Auto) 13 14 12-44 % Monocytes (%) (Auto) 10 11 0-12 % Eosinophils (%) (Auto) 3 2 0-10 % Basophils (%) (Auto) 0 1 0-10 % Neutrophils # (Auto) 3.4 3.1 1.8-7.8 X 10^3 Lymphocytes # (Auto) 0.6 L 0.6 L 1.0-4.0 X 10^3 Monocytes # (Auto) 0.5 0.5 0.0-1.0 X 10^3 Eosinophils # (Auto) 0.2 0.1 0.0-0.3 10^3/uL Basophils # (Auto) 0.0 0.0 0.0-0.1 10^3/uL Urine Color YELLOW Urine Clarity VERY CLOUDY H Urine pH 8 5-9 Urine Specific [place] 1.010 L 1.016-1.022 Urine Protein NEGATIVE NEGATIVE Urine Glucose (UA) NEGATIVE NEGATIVE Urine Ketones NEGATIVE NEGATIVE Urine Nitrite POSITIVE H NEGATIVE Urine Bilirubin NEGATIVE NEGATIVE Urine Urobilinogen NORMAL NORMAL MG/DL Urine Leukocyte Esterase 2+ H NEGATIVE Urine RBC (Auto) 2+ H NEGATIVE Urine RBC NONE /HPF Urine WBC 2-5 /HPF Urine Squamous Epithelial Cells NONE /HPF Urine Crystals PRESENT H /LPF Urine Triple Phosphate Crystals LARGE H /LPF Urine Amorphous Sediment MOD TOMMY PHOSPHATE H /LPF Urine Bacteria LARGE H /HPF Urine Casts NONE /LPF Urine Mucus NEGATIVE /LPF Urine Culture Indicated YES Sodium Level 132 L 142 135-145 MMOL/L Potassium Level 4.1 3.5 L 3.6-5.0 MMOL/L Chloride Level 101 112 #H 98-107 MMOL/L Carbon Dioxide Level 20 L 20 L 21-32 MMOL/L Anion Gap 11 10 5-14 MMOL/L Blood Urea Nitrogen 14 10 7-18 MG/DL Creatinine 0.90 0.74 0.60-1.30 MG/DL Estimat Glomerular Filtration Rate > 60 > 60 BUN/Creatinine Ratio 16 14 Glucose Level 99 83 70-105 MG/DL Calcium Level 9.1 8.8 8.5-10.1 MG/DL Corrected Calcium 9.2 8.5-10.1 MG/DL Magnesium Level 1.9 1.8-2.4 MG/DL Total Bilirubin 0.3 0.1-1.0 MG/DL Aspartate Amino Transf (AST/SGOT) 14 5-34 U/L Alanine Aminotransferase (ALT/SGPT) 8 0-55 U/L Alkaline Phosphatase 114 40-136 U/L Total Protein 6.7 6.4-8.2 GM/DL Albumin 3.9 3.2-4.5 GM/DL Prothrombin Time 21.9 H 12.2-14.7 SEC INR Comment 1.9 H 0.8-1.4 Activated Partial Thromboplast Time 56 H 24-35 SEC Radiology NAME: ALEKSEY GARZA MED REC#: [id number] PT STATUS: REG ER : 1950 PHYSICIAN: KRISTY WALDRON MD ADMIT DATE: 07/05/18/ER Signed Date of Exam: 07/05/18 CT HEAD WO PROCEDURE: CT head without contrast. TECHNIQUE: Multiple contiguous axial images were obtained through the brain without the use of intravenous contrast. INDICATION: Altered mental status. COMPARISON: 02/04/2018. FINDINGS: No hyperdense hemorrhage or space-occupying mass. No hydrocephalus or midline shift. Global atrophy is unchanged. Prominent perivascular space in the left basal ganglia. Periventricular white matter hypoattenuation is unchanged and compatible with chronic microvascular ischemic disease. Left frontoparietal craniotomy. No acute calvarial abnormality. Paranasal sinuses and mastoid air cells are clear. IMPRESSION: 1. Stable examination without acute intracranial process. Dictated by: Dictated on workstation # [id number] Dict: 07/05/18 1546 Trans: 07/05/18 4694 Interpreted by: NOAH HERMAN MD Electronically signed by: NOAH HERMAN MD 07/05/18 4692 Physical Exam-([facility]) Physical Exam Vital Signs VS - Last 72 Hours, by Label 07/05/18 07/05/18 07/05/18 07/05/18 15:29 16:36 17:13 17:20 Temp 98.4 97.7 97.3 Pulse 45 44 44 58 Resp 14 14 14 20 B/P (MAP) 176/67 (103) 114/48 (70) 115/49 (71) 127/75 (92) Pulse Ox 99 97 97 O2 Delivery Room Air O2 Flow Rate 99.00 07/05/18 07/05/18 07/05/18 07/05/18 18:06 18:20 18:35 19:20 Temp 97.8 97.7 Pulse 52 48 46 Resp 18 18 B/P (MAP) 129/60 (83) 139/60 (86) Pulse Ox 97 97 98 O2 Delivery Room Air Room Air Room Air O2 Flow Rate 99.00 07/05/18 07/05/18 07/05/18 07/06/18 20:00 20:20 22:20 00:00 Temp 97.6 97.3 97.3 Pulse 47 44 45 Resp 18 18 16 B/P (MAP) 157/70 (99) 142/60 (87) 170/60 (96) Pulse Ox 98 97 97 O2 Delivery Room Air Room Air Room Air Room Air 07/06/18 07/06/18 01:00 04:00 Temp 97.8 Pulse 56 50 Resp 16 B/P (MAP) 204/78 (120) Pulse Ox 97 O2 Delivery Room Air Capillary Refill : Less Than 3 Seconds General Appearance: no apparent distress (And arousable at 07 15 on July 06) Eyes: Bilateral Eye Normal Inspection Neck: full range of motion Respiratory: lungs clear Cardiovascular: regular rate, rhythm Gastrointestinal: soft Rectal: deferred Extremities: non-tender Assessment/Plan Assessment/Plan Admission Dx 1. Altered mental status -Suspected due to medication 2. Bradycardia 3. Urinary tract infection Admission Status: Observation Reason for Inpatient Admission: Monitor neuro status Assessment & Plan 1. Altered mental status-Suspected due to medication -Patient admitted for observation and monitoring of her sedation 2. Bradycardia -Monitor pulse rate 3. Urinary tract infection -Initiate Rocephin -Urine culture pending Clinical Quality Measures DVT/VTE Risk/Contraindication: Risk Factor Score Per Nursin RFS Level Per Nursing on Admit: 3=High REGAN DOUGLAS MD Jul 06, 2018 08:20
[2018-07-06] MEDS ORDERED: TRIAMCINOLONE 0.1% CR (KENALOG) 15 GM TUBE TP PRN (08:30)
[2018-07-06] MEDS ORDERED: VITAMIN D3 5,000 UNITS (CHOLECALCIFEROL ) CAPSULE PO SCH (08:30)
[2018-07-06] MEDS ORDERED: BISACODYL 10 MG SUPP (DULCOLAX) RC PRN (08:30)
--- NOTE | 2018-07-06 08:30 | NUR ---
AWAKE, COOPERATIVE, ANSWERS QUESTIONS, UROSTOMY BAG WITH CLEAR YELLOW URINE, [place] SITE WITHOUT REDNESS OR SWELLING, DENIES PAIN OR SOB, UP TO CHAIR WITH CHAIR ALARM ON, CALL LIGHT WITHIN REACH
[2018-07-06] MEDS ORDERED: NON-FORMULARY MEDICATION 1 EA EA (Cyclosporine (Restasis) 1 DROP) OU SCH (09:00)
[2018-07-06] MEDS: IRON POLYSAC 150 MG CAP (NIFEREX) PO SCH ×2 (09:14→20:01)
[2018-07-06] MEDS: PHENYTOIN 100 MG (DILANTIN) CAP PO SCH ×2 (09:14→20:02)
[2018-07-06] MEDS: TRIAMCINOLONE 0.1% CR (KENALOG) 15 GM TUBE TOP SCH ×2 (09:15→20:02)
[2018-07-06] MEDS: LORATADINE (CLARITIN) 10 MG TAB PO SCH (09:15)
[2018-07-06] MEDS: FLUTICASONE NASAL SPRAY (FLONASE) 16 GM BTL NS SCH (09:15)
[2018-07-06] MEDS: NITROGLYCERIN 0.2 MG/PATCH (NITRO-DUR) TD SCH (09:15)
[2018-07-06] MEDS: ARTIFICAL TEARS 0.4 ML UNIT DOSE (REFRESH PLUS) OU SCH ×4 (09:19→20:02)
[2018-07-06] MEDS: toPIRamate 100 MG (TOPAMAX) TAB PO SCH ×2 (09:41→20:01)
[2018-07-06 12:00] VITALS: BP 120/63
[2018-07-06 15:30] VITALS: BP 152/68
[2018-07-06] MEDS ORDERED: cefTRIAXone 1 GM/NS 50 ML IVPB IV SCH ×2 (17:00)
--- NOTE | 2018-07-06 17:52 | NUR ---
vomited undigested food, zofran given IV
[2018-07-06] MEDS ORDERED: warFARin 1 MG (COUMADIN) TAB PO SCH (18:00)
[2018-07-06 19:45] VITALS: BP 154/64
[2018-07-06] MEDS ORDERED: ROSUVASTATIN 10 MG (CRESTOR) TABLET PO SCH (21:00)
[2018-07-06] MEDS ORDERED: GABAPENTIN 400 MG (NEURONTIN) CAP PO SCH (21:00)
[2018-07-06] MEDS ORDERED: FAMOTIDINE 20 MG (PEPCID) TABLET PO SCH (21:00)
[2018-07-06] MEDS ORDERED: MELATONIN 3 MG TABLET PO SCH (21:00)
[2018-07-07 00:54] VITALS: BP 182/82
[2018-07-07] MEDS: NS IV 1000 ML 1,000 ML IV SCH (04:06)
[2018-07-07 04:43] VITALS: BP 164/78
[2018-07-07 08:00] VITALS: BP 164/78
[2018-07-07] MEDS: FLUTICASONE NASAL SPRAY (FLONASE) 16 GM BTL NS SCH (08:30)
[2018-07-07] MEDS: TRIAMCINOLONE 0.1% CR (KENALOG) 15 GM TUBE TOP SCH (08:31)
[2018-07-07] MEDS: NITROGLYCERIN 0.2 MG/PATCH (NITRO-DUR) TD SCH (08:31)
[2018-07-07] MEDS: toPIRamate 100 MG (TOPAMAX) TAB PO SCH (08:31)
[2018-07-07] MEDS: PHENYTOIN 100 MG (DILANTIN) CAP PO SCH (08:31)
[2018-07-07] MEDS: LORATADINE (CLARITIN) 10 MG TAB PO SCH (08:31)
[2018-07-07] MEDS: IRON POLYSAC 150 MG CAP (NIFEREX) PO SCH (08:36)
[2018-07-07] MEDS: ARTIFICAL TEARS 0.4 ML UNIT DOSE (REFRESH PLUS) OU SCH ×2 (08:36→13:24)
--- NOTE | 2018-07-07 09:59 | Discharge Summary-Hospitalist ---
RONAN KNUTSON DO 07/07/18 0959: Diagnosis/Chief Complaint Date of Admission Jul 05, 2018 at 16:43 Date of Discharge Discharge Date: Jul 07, 2018 Discharge Diagnosis (1) Altered mental status Status: Resolved (2) Bradycardia Status: Resolved (3) Adverse drug reaction Status: Resolved (4) CKD (chronic kidney disease) Status: Chronic Discharge Summary Discharge Physical Exam Allergies: Coded Allergies: Fish Containing Products (Unverified Allergy, Unknown, 09/19/17) FROM UNCODED ALLERGIES Penicillins (Verified Allergy, Unknown, 03/18/06) Sulfa (Sulfonamide Antibiotics) (Verified Allergy, Unknown, 03/18/06) acetaminophen (Verified Allergy, Unknown, 03/18/06) amitriptyline (Verified Allergy, Unknown, 03/18/06) aspirin (Verified Allergy, Unknown, 03/18/06) caramiphen (Verified Allergy, Unknown, 03/18/06) carbamazepine (Verified Allergy, Unknown, 03/18/06) clarithromycin (Verified Allergy, Unknown, 03/18/06) codeine (Verified Allergy, Unknown, 03/18/06) coffee (Coffea arabica) (Unverified Allergy, Unknown, 09/19/17) FROM UNCODED ALLERGIES diazepam (Verified Allergy, Unknown, 03/18/06) diphenhydramine (Verified Allergy, Unknown, 03/18/06) doxycycline (Verified Allergy, Unknown, 03/18/06) egg (Verified Allergy, Unknown, 03/18/06) fish oil (Verified Allergy, Unknown, 03/18/06) flavoxate (Verified Allergy, Unknown, 03/18/06) hydrocodone (Verified Allergy, Unknown, 03/18/06) hydroxyzine (Verified Allergy, Unknown, 03/18/06) hyoscyamine (Verified Allergy, Unknown, 03/18/06) imipramine (Verified Allergy, Unknown, 03/18/06) levofloxacin (Verified Allergy, Unknown, 03/18/06) liver extract (Verified Allergy, Unknown, 03/18/06) lorazepam (Verified Allergy, Unknown, 03/18/06) milk (Verified Allergy, Unknown, 03/18/06) nitrofurantoin (Verified Allergy, Unknown, 03/18/06) oxybutynin (Verified Allergy, Unknown, 03/18/06) pentazocine (Verified Allergy, Unknown, 03/18/06) phenazopyridine (Verified Allergy, Unknown, 03/18/06) phenylpropanolamine (Verified Allergy, Unknown, 03/18/06) procaine (Verified Allergy, Unknown, 03/18/06) promethazine (Verified Allergy, Unknown, 03/18/06) propoxyphene (Verified Allergy, Unknown, 03/18/06) pseudoephedrine (Verified Allergy, Unknown, 03/18/06) spinach (Unverified Allergy, Unknown, 09/19/17) FROM UNCODED ALLERGIES tetracycline (Verified Allergy, Unknown, 03/18/06) tramadol (Verified Allergy, Unknown, 03/18/06) zinc acetate (Verified Allergy, Unknown, 03/18/06) Uncoded Allergies: ANITHISTAMINES (Allergy, Unknown, 03/18/06) Vitals & I&Os Vital Signs Date Time Temp Pulse Resp B/P (MAP) Pulse Ox O2 Delivery O2 Flow Rate FiO2 07/07/18 08:00 98.0 66 18 164/78 (106) 98 Room Air 07/05/18 18:06 99.00 General Appearance: No Apparent Distress, WD/WN Respiratory: Chest Non Tender, Lungs Clear, Normal Breath Sounds, No Accessory Muscle Use, No Respiratory Distress Cardiovascular: Regular Rate, Rhythm, No Edema, No Gallop, No JVD, No Murmur, Normal Peripheral Pulses Neurologic/Psychiatric: Alert, Oriented x3, No Motor/Sensory Deficits, Normal Mood/Affect Hospital Course Hospital course: patient was admitted after AMS noted and was found to be dehydrated and bradycardic likely related to Baclofen. Pt has multiple allergies and intolerances to meds. Pt was deemed stable for DC after IVF. Labs (last 24 hrs) Microbiology 07/05/18 Urine Culture - Final, Complete ----- Patient resulted labs reviewed. Discussion & Recommendations Discharge Planning: <30 minutes discharge planning Discharge Home Medications: Active Scripts Active Reported Oxycodone HCl 5 Mg Capsule 5 Mg PO Q8H PRN Benadryl (Diphenhydramine HCl) 25 Mg Capsule 50 Mg PO HS PRN Duragesic Patch 75 MCG (Fentanyl) 1 Each Patch.td72 75 Mcg TD Q72H Tussin (Guaifenesin) 100 Mg/5 Ml Liquid 10 Ml PO Q6H PRN Warfarin Sodium 1 Mg Tablet 1.5 Mg PO MOTUTHFRSA Warfarin Sodium 1 Mg Tablet 1 Mg PO ,SAT Vitamin D (Cholecalciferol) 5,000 Unit Capsule 5,000 Unit PO UD TAKE 1 CAPSULE TWO TIMES DAILY EVERY 7 DAYS Rosuvastatin Calcium 10 Mg Tablet 10 Mg PO HS Refresh Tears (Carboxymethylcellulose Sodium) 15 Ml Drops 1 Drop OU QID Artificial Tears Eye Oint (Mineral Oil/Petrolatum,White) 3.5 Gm Oint...g. OU HS Polysaccharide Iron 150 (Iron Polysaccharide Complex) 150 Mg Capsule 150 Mg PO BID Lamotrigine 100 Mg Tablet 100 Mg PO BID Hydrocortisone 28.35 Gm Cream..g. TP DAILY PRN 2.5% Gabapentin 400 Mg Capsule 400 Mg PO HS Fluticasone Propionate 16 Gm [place].susp 2 Sprays NS DAILY Unmmws-Hoalmtjq-Ogmk 50-300-40 (Butalb/Acetaminophen/Caffeine) 1 Each Capsule 1 Cap PO Q6H PRN Acid Instrumentation Technologist (FAMOTIDINE) (Famotidine) 20 Mg Tablet 20 Mg PO HS Triamcinolone Acetonide 0.1% Cream (Triamcinolone Acet) 15 Gm Cr TP BID PRN Nizoral (Ketoconazole) 120 Ml Shampoo TOP MO,FR Clobetasol Propionate 50 Ml Solution TOP UD APPLY TO SCALP TWO TIMES A DAY EVERY SAT, SAT, SAT, SAT, SAT Triamcinolone Acetonide 0.1% Cream (Triamcinolone Acet) 15 Gm Cr TOP BID Melatonin 5 Mg Capsule 5 Mg PO HS Miralax (Polyethylene Glycol 3350) 17 Gm Powd.pack 17 Gm PO BID Nitroglycerin 0.2mg/HR Patch (Nitroglycerin) 1 Each Patch.td24 1 Patch TD DAILY Topiramate 100 Mg Tablet 100 Mg PO BID Dilantin (Phenytoin Sodium Extended) 100 Mg Capsule 100 Mg PO BID Metoprolol Tartrate 50 Mg Tablet 50 Mg PO BID HOLD IF PULSE <50 CALL PHYSICIAN Restasis (Cyclosporine) 1 Each Droperette 1 Drop OU BID Nissa Allergy (Fexofenadine HCl) 180 Mg Tablet 180 Mg PO DAILY Bisacodyl 10 Mg Supp.rect 10 Mg RC DAILY PRN Celexa (Citalopram Hydrobromide) 10 Mg Tablet 10 Mg PO DAILY Sodium Bicarbonate 650 Mg Tablet 650 Mg PO 1600 Clorazepate Dipotassium 3.75 Mg Tablet 3.75 Mg PO BID Instructions to patient/family Please see electronic discharge instructions given to patient. Clinical Quality Measures DVT/VTE Risk/Contraindication: Risk Factor Score Per Nursin RFS Level Per Nursing on Admit: 3=High JOSHUA VO MEDICAL STUDENT 07/07/18 1059: Discharge Summary Discharge Physical Exam Allergies: Coded Allergies: Fish Containing Products (Unverified Allergy, Unknown, 09/19/17) FROM UNCODED ALLERGIES Penicillins (Verified Allergy, Unknown, 03/18/06) Sulfa (Sulfonamide Antibiotics) (Verified Allergy, Unknown, 03/18/06) acetaminophen (Verified Allergy, Unknown, 03/18/06) amitriptyline (Verified Allergy, Unknown, 03/18/06) aspirin (Verified Allergy, Unknown, 03/18/06) caramiphen (Verified Allergy, Unknown, 03/18/06) carbamazepine (Verified Allergy, Unknown, 03/18/06) clarithromycin (Verified Allergy, Unknown, 03/18/06) codeine (Verified Allergy, Unknown, 03/18/06) coffee (Coffea arabica) (Unverified Allergy, Unknown, 09/19/17) FROM UNCODED ALLERGIES diazepam (Verified Allergy, Unknown, 03/18/06) diphenhydramine (Verified Allergy, Unknown, 03/18/06) doxycycline (Verified Allergy, Unknown, 03/18/06) egg (Verified Allergy, Unknown, 03/18/06) fish oil (Verified Allergy, Unknown, 03/18/06) flavoxate (Verified Allergy, Unknown, 03/18/06) hydrocodone (Verified Allergy, Unknown, 03/18/06) hydroxyzine (Verified Allergy, Unknown, 03/18/06) hyoscyamine (Verified Allergy, Unknown, 03/18/06) imipramine (Verified Allergy, Unknown, 03/18/06) levofloxacin (Verified Allergy, Unknown, 03/18/06) liver extract (Verified Allergy, Unknown, 03/18/06) lorazepam (Verified Allergy, Unknown, 03/18/06) milk (Verified Allergy, Unknown, 03/18/06) nitrofurantoin (Verified Allergy, Unknown, 03/18/06) oxybutynin (Verified Allergy, Unknown, 03/18/06) pentazocine (Verified Allergy, Unknown, 03/18/06) phenazopyridine (Verified Allergy, Unknown, 03/18/06) phenylpropanolamine (Verified Allergy, Unknown, 03/18/06) procaine (Verified Allergy, Unknown, 03/18/06) promethazine (Verified Allergy, Unknown, 03/18/06) propoxyphene (Verified Allergy, Unknown, 03/18/06) pseudoephedrine (Verified Allergy, Unknown, 03/18/06) spinach (Unverified Allergy, Unknown, 09/19/17) FROM UNCODED ALLERGIES tetracycline (Verified Allergy, Unknown, 03/18/06) tramadol (Verified Allergy, Unknown, 03/18/06) zinc acetate (Verified Allergy, Unknown, 03/18/06) Uncoded Allergies: ANITHISTAMINES (Allergy, Unknown, 03/18/06) General Appearance: No Apparent Distress HEENT: PERRL/EOMI Respiratory: Lungs Clear, Normal Breath Sounds, No Respiratory Distress Cardiovascular: Regular Rate, Rhythm, No Gallop Neurologic/Psychiatric: Alert, Oriented x3 Hospital Course Pt was admitted on 07/05 after she had altered mental status and was brought to the ED. Pt was diagnosed with an UTI and possible AMS secondary to medication. Pt was on Baclofen 10mg TID for 3 days before admission and fentanyl patch,oral narcotics and gabapentin. Pt was started on Rocephin to treat UTI. Pt has remained afebrile during her hospital stay. Discharge patient back [facility], will continue antibiotics Problem Qualifiers (1) Altered mental status: Altered mental status type: disorientation Qualified Codes: R41.0 - Disorientation, unspecified (2) Adverse drug reaction: Encounter type: initial encounter Qualified Codes: T50.905A - Adverse effect of unspecified drugs, medicaments and biological substances, initial encounter (3) CKD (chronic kidney disease): Chronic kidney disease stage: stage 3 (moderate) Qualified Codes: N18.3 - Chronic kidney disease, stage 3 (moderate) RONAN KNUTSON DO Jul 07, 2018 09:59 JOSHUA VO MEDICAL STUDENT Jul 07, 2018 10:59
[2018-07-07] MEDS ORDERED: KCL 10 MEQ TAB (MICRO K) PO NR (10:00)
--- NOTE | 2018-07-07 10:56 | NUR ---
Contacted [facility], they will transport this day around 1pm. Addendum: 07/07/18 at 1059 by AMENA GURROLA faxed discharge [facility].
[2018-07-07 12:00] VITALS: BP 165/71
--- NOTE | 2018-07-07 13:32 | NUR ---
ALEKSEY GARZA [facility] DPOA notified of discharge and report given to Marina castañeda . ALEKSEY GARZA belongings sent with patient. Skin dry and intact; no breakdown noted. Vital signs are stable at time of discharge. Condition is stable at time of discharge. Discharge instructions and copies of H&P, discharge summary, physician's order, lab reports, consultation reports, other dictated reports, diagnostic imaging reports, Advance Directive, eMAR, vital signs, intake and output sent with patient and the DPOA . Patient discharged from [facility] on 07/07/18 at 1330. ALEKSEY GARZA left floor via wheel chair , accompanied by DPOA. ALEKSEY GARZA and family/DPOA notified and verbalize understanding of discharge to [facility].
[2018-07-07] MEDS ORDERED: warFARin 1 MG (COUMADIN) TAB PO SCH (18:00)
== END 2018-07-07 09:57 ==
LOC: EDUNIT# 14:34 → ER 14:35 → UNDOADMOB 16:43 → 4TH 16:43 → UNDODISOB 07-07 13:39
PROVIDERS: ADMIT Family Medicine; ATTEND Family Medicine
DX: R41.0 Disorientation, unspecified (principal); T50.905A Adverse effect of unspecified drugs, medicaments and biological substances, initial encounter; N39.0 Urinary tract infection, site not specified; E86.0 Dehydration; R00.1 Bradycardia, unspecified; I25.10 Atherosclerotic heart disease of native coronary artery without angina pectoris; I12.9 Hypertensive chronic kidney disease with stage 1 through stage 4 chronic kidney disease, or unspecified chronic kidney disease; N18.3 Chronic kidney disease, stage 3 (moderate); G40.909 Epilepsy, unspecified, not intractable, without status epilepticus; E78.00 Pure hypercholesterolemia, unspecified; Z93.6 Other artificial openings of urinary tract status; K21.9 Gastro-esophageal reflux disease without esophagitis; K59.09 Other constipation; I69.354 Hemiplegia and hemiparesis following cerebral infarction affecting left non-dominant side; M81.0 Age-related osteoporosis without current pathological fracture; D50.9 Iron deficiency anemia, unspecified; Z79.01 Long term (current) use of anticoagulants; Z79.899 Other long term (current) drug therapy
CPT/HCPCS: 36415; 70450; 80048; 80053; 80185; 81000; 83735; 85025; 85610; 85730; 87088; 96361; 96365; G0378

== ENCOUNTER 2018-08-08 07:14 | Outpatient (CLI) | payer MEDICARE, MEDICAID ==
[~2018-08-08] VITALS: Ht 154.9 cm; Wt 49.9 kg
[~2018-08-08 07:14] MED LIST changes: +BACL10TA PO; +FENT1PAT59 TD; +OXYC5CAP18 PO
[2018-08-08] MEDS ORDERED: ZOLEDRONATE (NON-FORMULARY) 100 ML IV ONE (07:30)
[2018-08-08 07:49] VITALS: BP 133/57
== END 2018-08-08 08:25 | disposition home or self-care (01) ==
LOC: SDC 07:14
PROVIDERS: ATTEND Internal Medicine
DX: M81.0 Age-related osteoporosis without current pathological fracture (principal)
CPT/HCPCS: 96365

== ENCOUNTER → 2018-11-19 | Outpatient (CLI) | payer MEDICARE, MEDICAID ==
[~2018-11-19] MED LIST changes: +OXC5T PO; -OXYC5CAP18 PO
--- NOTE | 2018-11-19 13:06 | Diagnostic Imaging Report ---
PROCEDURE: US carotid duplex, bilateral. TECHNIQUE: Multiple real-time grayscale images were obtained over the carotid arteries in various projections, bilaterally. Additional spectral analysis and color Doppler duplex images were also obtained. INDICATION: Carotid artery stenosis. FINDINGS: Minimal plaque is seen in the proximal right internal carotid artery. Velocities are normal bilaterally. No velocity elevation or stenosis is seen. Both vertebral arteries show antegrade flow. IMPRESSION: No evidence of a hemodynamically significant stenosis. Parameters based on the consensus panel Aguilar-Scale and Doppler ultrasound criteria published April 2003, Radiology, Volume 229. DOPPLER (peak systolic velocity M/S Right Left CCA .74 .76 ICA Proximal .65 .84 ICA Mid .79 .87 ICA Distal .72 .85 RATIO 1.1 1.1 ECA .83 .70 VERT .59 .44 Dictated by: Dictated on workstation # [id number]
== END ==
LOC: CARD 11:50
PROVIDERS: ATTEND Internal Medicine Cardiovascular Disease
DX: I08.3 Combined rheumatic disorders of mitral, aortic and tricuspid valves (principal); R00.2 Palpitations; R07.9 Chest pain, unspecified; E78.5 Hyperlipidemia, unspecified; I10 Essential (primary) hypertension; I65.21 Occlusion and stenosis of right carotid artery; Z86.79 Personal history of other diseases of the circulatory system; Z86.718 Personal history of other venous thrombosis and embolism
CPT/HCPCS: 93306; 93880

== ENCOUNTER → 2018-12-08 | Outpatient (CLI) | payer MEDICARE, MEDICAID ==
--- NOTE | 2018-12-08 10:57 | Diagnostic Imaging Report ---
INDICATION: Routine screening. COMPARISON: 09/04/2017 and 08/23/2016. TECHNIQUE: 2D and 3D bilateral screening mammography was performed with CAD. FINDINGS: Both breasts are heterogeneously dense, limiting the sensitivity of mammography. There is a density in the central left breast, best seen on the CC view, at the nipple line at mid depth. No definite correlate on the MLO view is identified. A cardiac monitoring device overlies the left breast. The axillae are unremarkable apart from an Infusaport hub in the right axilla. No suspicious calcifications are seen. IMPRESSION: Left breast density. Additional views are recommended for further evaluation. ACR BI-RADS Category 0: Incomplete. (Needs additional imaging evaluation). Result letter will be mailed to the patient. Note: At least 10% of breast cancer is not imaged by mammography. Dictated by: Dictated on workstation # [id number]
== END ==
LOC: RAD 08:52
PROVIDERS: ATTEND Internal Medicine
DX: Z12.31 Encounter for screening mammogram for malignant neoplasm of breast (principal); R92.8 Other abnormal and inconclusive findings on diagnostic imaging of breast
CPT/HCPCS: 77067

== ENCOUNTER → 2019-02-05 | Outpatient (CLI) | payer MEDICARE, MEDICAID ==
[~2019-02-05] MED LIST changes: -BISA10SU6 RC; +BISA10SU8 RC; -ROSU10TA27 PO; +ROSU10TA28 PO
--- NOTE | 2019-02-05 21:31 | Diagnostic Imaging Report ---
INDICATION: Left breast density. Patient presents for additional views. COMPARISON: Correlation is made with screening study from 12/08/2018. EXAMINATION: Unilateral left 2D and 3D diagnostic mammography was performed including spot compression CC, rolled CC and conventional 90 degree lateral views. FINDINGS: Area in question in the central left breast appears to resolve with additional views. This most likely represents superimposed tissue. No mass or suspicious microcalcifications are seen. IMPRESSION: No mammographic features suspicious for malignancy are identified. The patient may return to routine annual screening mammography. ACR BI-RADS Category 1: Negative. Result letter will be mailed to the patient. Note: At least 10% of breast cancer is not imaged by mammography. Dictated by: Dictated on workstation # [id number]
== END ==
LOC: RAD 14:09
PROVIDERS: ATTEND Internal Medicine
DX: R92.2 Inconclusive mammogram (principal); R92.8 Other abnormal and inconclusive findings on diagnostic imaging of breast

== ENCOUNTER → 2019-03-16 | Outpatient (CLI) | payer MEDICARE, MEDICAID | LOC: CARD 08:40 | PROVIDERS: ATTEND Nurse Practitioner Family | DX: R00.2 Palpitations (principal); Z88.8 Allergy status to other drugs, medicaments and biological substances; Z88.6 Allergy status to analgesic agent; Z88.0 Allergy status to penicillin; Z88.4 Allergy status to anesthetic agent; Z91.018 Allergy to other foods | CPT/HCPCS: 93225; 93226 ==

== ENCOUNTER → 2019-08-10 | Outpatient (CLI) | payer MEDICARE, MEDICAID ==
[~2019-08-10] VITALS: Ht 152.4 cm; Wt 61.2 kg
[~2019-08-10] MED LIST changes: +HEParin (CENTRAL IV FLUSH) 500 UNIT/5 ML SYR IV ONE; +HEParin (CENTRAL IV FLUSH) 500 UNIT/5 ML SYR ONE; -IBUP-2055 PO; +IBUP-2473 PO; +LAMO100T5 PO; -MELA3TAB PO; +MELA3TAB65 PO; +ZOLEDRONATE (NON-FORMULARY) 100 ML IV SCH
--- NOTE | 2019-08-10 13:08 | NUR ---
PRESENTS PER PERSONAL W/C FOR [facility] INFUSION FROM [facility] WITH STAFF X1. CURRENT ORDER ON FILE IS OUTDATED AND THEREFORE INVALID. WILL CONTACT DR BETH'S OFFICE FOR NEW ORDER.
[2019-08-10] MEDS: CATHETER FLUSH 10 ML SYR IV PRN ×2 (14:00→14:40)
--- NOTE | 2019-08-10 14:15 | NUR ---
NEW ORDER OBTAINED, INFUSION STARTED ORERED.
[2019-08-10 14:47] VITALS: BP 140/61
--- NOTE | 2019-08-10 15:30 | NUR ---
PT HAS BEEN WAITING FOR [facility] STAFF FOR TRANSPORT BACK TO THEIR FACILITY. CALL RECEIVED FROM SHERRON, PROGRAMMER DEVELOPER AT [facility]. 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 TRANSPORT TIME FOR Salena GARZA HAS BEEN AFFECTED BY INVALID RECLAST ORDER. VOUCHER OBTAINED FROM NUCLEAR DESIGN ENGINEER FOR CAB TRANSPORT.
--- NOTE | 2019-08-10 15:50 | NUR ---
ASSISTED INTO CAB VAN BY THIS RN FOR TRANSPORT TO [facility].
== END ==
LOC: SDC 13:03
PROVIDERS: ATTEND Internal Medicine
DX: M81.0 Age-related osteoporosis without current pathological fracture (principal)
CPT/HCPCS: 96365

== ENCOUNTER → 2020-10-26 | Outpatient (CLI) | payer MEDICARE, MEDICAID ==
[~2020-10-26] VITALS: Ht 154 cm; Wt 46.5 kg
[~2020-10-26] MED LIST changes: -HEParin (CENTRAL IV FLUSH) 500 UNIT/5 ML SYR IV ONE; -HEParin (CENTRAL IV FLUSH) 500 UNIT/5 ML SYR ONE; +MELA3TAB39 PO; -MELA3TAB65 PO; +NF-SODBICA PO; -SODI650T PO; -WARF1TAB82 PO; -ZOLEDRONATE (NON-FORMULARY) 100 ML IV SCH; +ZOLEDRONATE (RECLAST) 5 MG/100 ML IV ONE
[2020-10-26 13:28] VITALS: BP 156/67
== END ==
LOC: SDC 13:02
PROVIDERS: ATTEND Internal Medicine
DX: M81.0 Age-related osteoporosis without current pathological fracture (principal)
CPT/HCPCS: 96365

== ENCOUNTER → 2020-11-08 | Outpatient (CLI) | payer MEDICARE, MEDICAID ==
[~2020-11-08] MED LIST changes: -ZOLEDRONATE (RECLAST) 5 MG/100 ML IV ONE
--- NOTE | 2020-11-08 20:39 | Diagnostic Imaging Report ---
INDICATION: Routine screening. COMPARISON is made with prior mammograms of 12/08/2018 and 09/04/2017. 2-D and 3-D bilateral screening mammography was performed with CAD. Both breasts are heterogeneously dense, limiting the sensitivity of mammography. The parenchymal pattern is stable. Cardiac monitoring device overlies the left breast. No mass or malignant appearing microcalcifications are seen. Axillae are unremarkable. IMPRESSION: BI-RADS Category 1 No mammographic features suspicious for malignancy are identified. ACR BI-RADS Category 1: Negative. Result letter will be mailed to the patient. Note: At least 10% of breast cancer is not imaged by mammography. Dictated by: Dictated on workstation # [id number]
== END ==
LOC: RAD 10:28
PROVIDERS: ATTEND Internal Medicine
DX: Z12.31 Encounter for screening mammogram for malignant neoplasm of breast (principal)
CPT/HCPCS: 77063; 77067

== ENCOUNTER → 2020-11-15 | Outpatient (CLI) | payer MEDICARE, MEDICAID ==
--- NOTE | 2020-11-15 17:05 | Diagnostic Imaging Report ---
EXAMINATION: US Retroperitoneal Complete. TECHNIQUE: Multiple real-time grayscale images were obtained over the kidneys in various projections bilaterally. HISTORY: CKD COMPARISON: None available. FINDINGS: The right kidney is normal in size measuring 9.3 x 4.6 x 4.2 cm. The echogenicity is increased. There is no hydronephrosis. No stones are seen. No suspicious lesions. The left kidney is normal in size measuring 9.1 x 4.3 x 4.9 cm. The echogenicity is increased. There is mild left hydronephrosis. No stones are seen. No suspicious lesions. The urinary bladder is surgically absent. IMPRESSION: 1. Increased echogenicity of the kidneys consistent with medical renal disease. 2. Mild left-sided hydronephrosis. Dictated by: Dictated on workstation # [id number]
== END ==
LOC: RAD 13:45
PROVIDERS: ATTEND Urology
DX: N18.9 Chronic kidney disease, unspecified (principal); N13.30 Unspecified hydronephrosis
CPT/HCPCS: 76770

== ENCOUNTER → 2021-11-10 | Outpatient (CLI) | payer MEDICARE, MEDICAID ==
[~2021-11-10] VITALS: Ht 157.5 cm; Wt 43.6 kg
[~2021-11-10] MED LIST changes: +CICL6.6S22 TOP; -CICL6.6S5 TOP; -CITA10TA7 PO; +CITA10TA9 PO; -GUAI100L36 PO; +GUAI100L56 PO; +PHEN50TA5 PO; +ZOLEDRONATE (RECLAST) 5 MG/100 ML IV ONE
[2021-11-10 09:50] VITALS: BP 149/73
== END ==
LOC: SDC 09:42
PROVIDERS: ATTEND Internal Medicine
DX: M81.0 Age-related osteoporosis without current pathological fracture (principal)
CPT/HCPCS: 96365

== ENCOUNTER → 2021-11-14 | Outpatient (CLI) | payer MEDICARE, MEDICAID ==
[~2021-11-14] MED LIST changes: -ZOLEDRONATE (RECLAST) 5 MG/100 ML IV ONE
--- NOTE | 2021-11-14 15:06 | Diagnostic Imaging Report ---
Indication: Routine screening. Comparison is made with prior mammograms from 11/08/2020 and 12/08/2018. 2-D and 3-D bilateral screening mammography was performed with CAD. Both breasts are heterogeneously dense, limiting the sensitivity of mammography. Cardiac loop recorder overlies the left breast. No mass or malignant-appearing microcalcifications are seen. Axillae are unremarkable. IMPRESSION: BI-RADS Category 1 No mammographic features suspicious for malignancy are identified. ACR BI-RADS Category 1: Negative. Result letter will be mailed to the patient. Note: At least 10% of breast cancer is not imaged by mammography. Dictated by: Dictated on workstation # [id number]
== END ==
LOC: RAD 14:00
PROVIDERS: ATTEND Internal Medicine
DX: Z12.31 Encounter for screening mammogram for malignant neoplasm of breast (principal)
CPT/HCPCS: 77063; 77067

== ENCOUNTER → 2021-12-13 | Outpatient (CLI) | payer MEDICARE, MEDICAID ==
[~2021-12-13] MED LIST changes: -GUAI100L56 PO; +GUAI100L74 PO
--- NOTE | 2021-12-13 11:12 | Diagnostic Imaging Report ---
PROCEDURE: US Renal Bilateral. TECHNIQUE: Multiple real-time grayscale images were obtained over the kidneys in various projections bilaterally. INDICATION: Renal failure Right kidney measures 9.5 x 5.0 x 4.5 cm. Left kidney measures 9.0 x 3.8 x 4.6 cm. There is mild bilateral hydronephrosis. There is thinning of the renal cortex with increased echogenicity in both kidneys. Urinary bladder surgically absent. IMPRESSION: Increased renal cortical echogenicity suggesting medical renal disease. There is mild bilateral hydronephrosis. Dictated by: Dictated on workstation # [id number]
== END ==
LOC: RAD 10:30
PROVIDERS: ATTEND Urology
DX: N18.9 Chronic kidney disease, unspecified (principal)
CPT/HCPCS: 76770

== ENCOUNTER → 2022-03-06 | Outpatient (CLI) | payer MEDICARE, MEDICAID ==
--- NOTE | 2022-03-06 09:51 | Diagnostic Imaging Report ---
INDICATION: M81.0, postmenopausal state. COMPARISON: 04/18/2017. TECHNIQUE: An axial DEXA was performed on 03/06/2022. FINDINGS: AP Spine L1-L4: [BMD (g/cm2): 0.866] [T-Score: -2.8] [Z-Score: -0.4] [BMD Previous: 0.834] [BMD % Change: 3.8]* LT Hip Neck: [BMD (g/cm2): 0.560] [T-Score: -3.4] [Z-Score: -1.1] LT Hip Total: [BMD (g/cm2):0.467] [T-Score:-4.3] [Z-Score: -2.1] [BMD Previous: 0.432] [BMD % Change: 8.1]* RT Hip Neck: [BMD (g/cm2):0.460] [T-Score:-4.2] [Z-Score:-1.9] RT Hip Total: [BMD (g/cm2):0.423] [T-score:-4.6] [Z-Score:-2.5] [BMD Previous:0.81] [BMD % Change:11.0]* *Indicates significant change from prior examination based on 95% confidence level. World Health Organization criteria for BMD interpretation classify patients as Normal (T-score at or above -1.0), Osteopenic (T-score between -1.0 and -2.5) or Osteoporotic (T-score at or below -2.5). LIMITATIONS AND MODIFICATION: Significant degenerative changes are noted within the lumbar spine as well as in the bilateral hips. FRACTURE RISK (FRAX SCORE): The ten year probability of (%): Major Osteoporotic Fracture: [43.8] Hip Fracture: [26.2] IMPRESSION: 1. Osteoporosis. 2. Bone mineral density has significantly increased since the prior examination; however, some of this apparent increase could be artifactual secondary to significant degenerative changes. 3. See below National Osteoporosis Foundation guidelines on when to potentially initiate pharmacologic therapy. Based on the National Osteoporosis Foundation Guidelines, pharmacologic treatment should be initiated in any of the following, unless clinical conditions suggest otherwise: * Any patient with prior fragility fracture of the hip or vertebrae. A spine fracture indicates 5X risk for subsequent spine fracture and 2X risk for subsequent hip fracture. * Osteoporosis (T-score <-2.5). * Postmenopausal women and men age 50 and older with low bone mass/osteopenia (T-score between -1.0 and -2.5) by DXA and 10-year major osteoporotic fracture greater than 20% or a 10-year probability of hip fracture greater than 3%. These fracture risks are supplied above in the FRAX score, if applicable. * Clinician judgement and/or patient preferences may indicate treatment for people with 10-year fracture probabilities above or below these levels. Dictated by: Dictated on workstation # [id number]
== END ==
LOC: RAD 07:43
PROVIDERS: ATTEND Internal Medicine
DX: M81.0 Age-related osteoporosis without current pathological fracture (principal); Z78.0 Asymptomatic menopausal state
CPT/HCPCS: 77080

== ENCOUNTER → 2022-08-09 | Outpatient (CLI) | payer MEDICARE, MEDICAID ==
[~2022-08-09] VITALS: Ht 154.9 cm; Wt 43.6 kg
[~2022-08-09] MED LIST changes: +ZOLEDRONATE (RECLAST) 5 MG/100 ML IV ONE
[2022-08-09 11:39] VITALS: BP 147/65
== END ==
LOC: SDC 10:47
PROVIDERS: ATTEND Nurse Practitioner Community Health
DX: M81.0 Age-related osteoporosis without current pathological fracture (principal)
CPT/HCPCS: 96365